=== PATIENT | male | born 1970 | race Caucasian/White ===

== ENCOUNTER 2022-12-09 19:19 | Emergency (ER) | payer SELFPAY ==
[2022-12-09 19:24] VITALS: BP 147/93; PULSE 97; RESP 18; TEMP 36.7; O2SAT 95; BMI 37.9
--- NOTE | 2022-12-09 19:51 | CT_ITS ---
The [address] [address] Patient Name: BRYNN WRIGHT MRN: [id number] date: 1970 Sex: M Assigned Patient Location: ER Current Patient Location: ER Accession/Order Number: [id number] Exam Date: 12/09/2022 20:06 Report Date: 12/09/2022 21:04 At the request of: HOLLIE HENNESSY Procedure: CT head/brain wo con EXAMINATION: CT head/brain wo con HISTORY: head injury - TECHNIQUE: CT head without contrast. All CT scans at this facility use dose modulation, iterative reconstruction, and/or weight based dosing when appropriate to reduce radiation dose to as low as reasonably achievable. COMPARISON: None. RESULT: HEAD: There is hyperintensity along the right tentorial leaflet in the course of the right transverse/sigmoid sinus which is also seen along the right posterior convexity and measuring up to 8.5 mm in thickness. No hydrocephalus, midline shift. Caldwell-white matter differentiation is preserved. Mastoids and middle ears are clear. Debris in the right external auditory canal likely cerumen. Mucosal thickening of the sphenoid and ethmoid sinuses. Imaged orbits are intact. Calvarium, skull base and osseous structures of the imaged face are intact. Scalp soft tissues are preserved. CT/CT head/brain wo con IMPRESSION: Hyperintensity along the right tentorial leaflet in the region of the transverse and sigmoid sinuses could reflect a subdural hematoma in the setting of trauma. Alternatively dural venous sinus thrombosis could have a similar appearance. Consider MRI/MRV for further evaluation. Dr. Steward discussed the above findings with Dr. Hennessy at 210 on 12/09/2022 by telephone. Electronically authenticated by: TACHO STEWARD Date: 12/09/2022 21:04
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
[2022-12-09 22:00] LABS: Basophils Absolute Auto 0.1 10^3/uL (0.0-0.1); Basophils Percent Auto 0.7 % (0.2-2.0); Eosinophils Absolute Auto 1.2 10^3/uL (0.0-0.7); Eosinophils Percent Auto 8.7 % (0.9-7.0); Hematocrit 44.3 % (42.0-54.0); Hemoglobin 14.8 g/dL (14.0-18.0); Immature Granulocytes Abs Auto 0.07 10^3/uL (0.00-0.03); Immature Granulocytes Pct Auto 0.5 % (0.0-0.5); Lymphocytes Absolute Auto 2.6 10^3/uL (1.2-3.8); Lymphocytes Percent Auto 18.9 % (20.5-60.0); Mean Corpuscular HGB Conc 33.4 g/dL (29.9-35.2); Mean Corpuscular Hemoglobin 28.2 pg (25.9-34.0); Mean Corpuscular Volume 84.4 fL (80.0-94.0); Mean Platelet Volume 10.3 fL (9.5-13.5); Monocytes Absolute Auto 1.1 10^3/uL (0.3-0.8); Monocytes Percent Auto 7.9 % (1.7-12.0); Neutrophils Absolute Auto 8.7 10^3/uL (1.4-6.5); Neutrophils Percent Auto 63.3 % (43.0-75.0); Platelet Count 238 10^3/uL (150-450); Red Blood Count 5.25 10^6/uL (4.70-6.10); Red Cell Distribution Width 14.2 % (11.0-15.0); White Blood Count 13.7 10^3/uL (4.0-11.0)
[2022-12-09] MEDS: FENTANYL CITRATE/PF 100 MCG/2 ML VIAL 50 MCG IV (22:07)
[2022-12-09 22:14] VITALS: BP 150/107; PULSE 101; O2SAT 92
[2022-12-09 22:20] LABS: Alanine Aminotransferase 32 U/L (16-63); Albumin Level 3.4 g/dL (3.4-5.0); Alkaline Phosphatase 72 U/L (46-116); Aspartate Amino Transferase 22 U/L (15-37); BUN Creatinine Ratio 23.8; Bilirubin Total 1.2 mg/dL (0.2-1.0); Calcium 8.7 mg/dL (8.5-10.1); Carbon Dioxide 27.8 mmol/L (21.0-32.0); Chloride 101 mmol/L (98-107); Estimated GFR (African America >60 (>=60); Estimated GFR (Non-African Ame >60 (>=60); Globulin 3.4 g/dL; Glucose 116 mg/dL (74-106); Potassium 3.8 mmol/L (3.5-5.1); Sodium 132 mmol/L (136-145); Total Protein 6.8 g/dL (6.4-8.2)
[2022-12-09 22:57] VITALS: BP 144/91; PULSE 99; RESP 20; O2SAT 94
== END 2022-12-09 23:35 | disposition short-term general hospital (02) ==
PROVIDERS: Emergency Provider Internal Medicine
DX: S06.5X9A Traumatic subdural hemorrhage with loss of consciousness of unspecified duration, initial encounter (principal); V23.49XA Other motorcycle driver injured in collision with car, pick-up truck or van in traffic accident, initial encounter; F17.210 Nicotine dependence, cigarettes, uncomplicated
CPT/HCPCS: 36415; 70450; 80053; 85025; 96374; 99285

== ENCOUNTER 2022-12-18 12:23 | Outpatient (OUT) | payer SELFPAY ==
--- NOTE | 2022-12-18 | XR_ITS ---
The [address] [address] Patient Name: BRYNN WRIGHT MRN: [id number] date: 1970 Sex: M Assigned Patient Location: [facility] Current Patient Location: [facility] Accession/Order Number: [id number] Exam Date: 12/18/2022 12:35 Report Date: 12/18/2022 18:24 At the request of: DEDRICK KHAN Procedure: XR shoulder LT min 2V EXAM: Left shoulder HISTORY: . Acute pain of the left shoulder . COMPARISON: None. TECHNIQUE: 3 views FINDINGS: No fracture or dislocation of the shoulder is noted. Glenohumeral joint is unremarkable. AC joint measures approximately 11 mm. No acute fracture is noted. Surrounding soft tissues are unremarkable. XR/XR shoulder LT min 2V IMPRESSION: 1 no acute bony abnormality of the left shoulder. 2. AC joint measures 11 mm. Findings could represent a normal variation or represent AC separation. Acute or old. Clinical correlation is suggested. Electronically authenticated by: ALE PABON Date: 12/18/2022 18:24
== END 2022-12-18 12:24 | disposition home or self-care (01) ==
LOC: RAD 12:24
PROVIDERS: Visit Provider Orthopaedic Surgery
DX: M25.512 Pain in left shoulder (principal)
CPT/HCPCS: 73030

== ENCOUNTER 2022-12-25 17:50 | Emergency (ER) | payer SELFPAY ==
[2022-12-25] VITALS (20 sets, daily range): BP systolic 123–168; BP diastolic 78–105; PULSE 89–109; RESP 20–28; TEMP 37.2; O2SAT 91–97; BMI 37.9
--- NOTE | 2022-12-25 18:05 | XR_ITS ---
The [address] [address] Patient Name: BRYNN WRIGHT MRN: [id number] date: 1970 Sex: M Assigned Patient Location: ER Current Patient Location: ED.MAIN Accession/Order Number: [id number] Exam Date: 12/25/2022 18:25 Report Date: 12/25/2022 18:52 At the request of: ODALYS BAIRD Procedure: XR chest 1V EXAM: XR chest 1V at 1820 hours HISTORY: SOB COMPARISON: 04/25/2020 TECHNIQUE: AP upright portable chest x-ray FINDINGS: The heart is not enlarged and the vasculature is not distended. Multiple sternal wire sutures and mediastinal clips are present. No acute infiltrate, effusion or pneumothorax is identified. The osseous structures are grossly intact. XR/XR chest 1V IMPRESSION: No acute infiltrate or evidence of cardiac decompensation. The overall appearance of the chest is essentially unchanged. Electronically authenticated by: MAURICIO CABAN Date: 12/25/2022 18:52
--- NOTE | 2022-12-25 18:05 | ECG_ITS ---
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
--- NOTE | 2022-12-25 18:06 | ED_ITS ---
HPI - SOB/Dyspnea General Chief Complaint: Shortness of Breath/Dyspnea Stated Complaint: SOB Time Seen by Provider: 12/25/22 18:01 Source: patient Mode of arrival: walk-in Limitations: no limitations History of Present Illness HPI Narrative: 52-year-old male presents for difficulty breathing. He has a history of chronic obstructive pulmonary disease and has not had a fever. He ran out of his Ventolin three days ago. He had been admitted on December 12 in a hospital in [place] and at that time was diagnosed with pneumonia. He was discharged home on an antibiotic which he has now finished. Related Data Allergies Allergy/AdvReac Type Severity Reaction Status Date / Time No Known Drug Allergies Allergy Verified 12/09/22 19:23 Review of Systems ROS Narrative A ten point review of systems is negative except as noted above. PFSH PFSH Social History Smoking status: Former smoker Exam Narrative Exam Narrative: Nurses note and vital signs reviewed and patient is not hypoxic. General: The patient appears dyspneic Skin: Warm, dry, no pallor noted. There is no rash noted. Head: Normocephalic, atraumatic Eye: Normal conjunctiva, no drainage Ears, Nose, Mouth, and Throat: oral mucosa is moist. Nares patent. Cardiovascular: Regular Rate and Rhythm Respiratory: bilateral rhonchi throughout Back: non-tender GI: soft and nontender Musculoskeletal: The patient has no evidence of calf tenderness, no pitting edema, symmetrical pulses noted bilaterally Neurological: A&O, normal speech Psychiatric: Cooperative Constitutional Vital Signs, click to edit/add: Last Vital Signs Temp 98.9 F 12/25/22 17:54 Pulse 91 H 12/25/22 17:54 Resp 28 H 12/25/22 17:54 BP 168/93 H 12/25/22 17:54 Pulse Ox 93 L 12/25/22 18:08 O2 Del Method Room Air 12/25/22 18:08 Course Vital Signs Vital signs: Vital Signs Temperature 98.9 F 12/25/22 17:54 Pulse Rate 91 H 12/25/22 17:54 Respiratory Rate 28 H 12/25/22 17:54 Blood Pressure 168/93 H 12/25/22 17:54 Pulse Oximetry 93 L 12/25/22 17:54 Temperature 98.9 F 12/25/22 17:54 Pulse Rate 91 H 12/25/22 17:54 Respiratory Rate 28 H 12/25/22 17:54 Blood Pressure 168/93 H 12/25/22 17:54 Pulse Oximetry 93 L 12/25/22 18:08 Oxygen Delivery Method Room Air 12/25/22 18:08 MDM - SOB/Dyspnea MDM Narrative Medical decision making narrative: tests including blood work and chest x-ray are ordered and the patient is signed out to Dr. Magallon at change of shift. Differential Diagnosis Differential diagnosis: Likely acute exacerbation of chronic obstructive airways disease and community acquired pneumonia Discharge Plan Discharge Chief Complaint: Shortness of Breath/Dyspnea Clinical Impression: Acute exacerbation of chronic obstructive pulmonary disease Patient Disposition: Still a Patient Referrals: Physician,Non-Staff, MD [Primary Care Provider] - 1 week
[2022-12-25] MEDS: ALBUTEROL SULFATE 2.5 MG/3 ML VIAL NEB IH ×2 (18:08→19:02)
[2022-12-25] MEDS: METHYLPREDNISOLONE SOD SUCC PF 125 MG/2 ML VIAL IVP (18:31)
[2022-12-25 19:06] LABS: Basophils Absolute Auto 0.1 10^3/uL (0.0-0.1); Basophils Percent Auto 0.9 % (0.2-2.0); Eosinophils Absolute Auto 1.7 10^3/uL (0.0-0.7); Eosinophils Percent Auto 11.4 % (0.9-7.0); Hemoglobin 15.2 g/dL (14.0-18.0); Immature Granulocytes Abs Auto 0.06 10^3/uL (0.00-0.03); Immature Granulocytes Pct Auto 0.4 % (0.0-0.5); Lymphocytes Absolute Auto 4.7 10^3/uL (1.2-3.8); Lymphocytes Percent Auto 30.8 % (20.5-60.0); Mean Corpuscular Hemoglobin 27.7 pg (25.9-34.0); Mean Corpuscular Volume 83.9 fL (80.0-94.0); Mean Platelet Volume 10.2 fL (9.5-13.5); Monocytes Percent Auto 6.6 % (1.7-12.0); Neutrophils Absolute Auto 7.6 10^3/uL (1.4-6.5); Neutrophils Percent Auto 49.9 % (43.0-75.0); Platelet Count 354 10^3/uL (150-450); Red Blood Count 5.48 10^6/uL (4.70-6.10); Red Cell Distribution Width 14.1 % (11.0-15.0); White Blood Count 15.3 10^3/uL (4.0-11.0)
[2022-12-25 19:10] LABS: Anion Gap 10.6; BUN Creatinine Ratio 22.3; Calcium 9.1 mg/dL (8.5-10.1); Carbon Dioxide 28.3 mmol/L (21.0-32.0); Chloride 104 mmol/L (98-107); Estimated GFR (African America >60 (>=60); Estimated GFR (Non-African Ame 58 (>=60); Glucose 104 mg/dL (74-106); Potassium 3.9 mmol/L (3.5-5.1); Sodium 139 mmol/L (136-145)
== END 2022-12-25 21:02 | disposition home or self-care (01) ==
PROVIDERS: Emergency Provider Emergency Medicine
DX: J44.1 Chronic obstructive pulmonary disease with (acute) exacerbation (principal); R06.00 Dyspnea, unspecified; Z87.01 Personal history of pneumonia (recurrent); Z87.891 Personal history of nicotine dependence
CPT/HCPCS: 36415; 71045; 80048; 85025; 87070; 87205; 93005; 94640; 96374; 99285; J2930

== ENCOUNTER 2023-01-01 12:21 | Outpatient (OUT) | payer SELFPAY ==
--- NOTE | 2023-01-01 12:26 | MR_ITS ---
The [address] [address] Patient Name: BRYNN WRIGHT MRN: [id number] date: 1970 Sex: M Assigned Patient Location: MRI Current Patient Location: MRI Accession/Order Number: [id number] Exam Date: 01/01/2023 12:45 Report Date: 01/01/2023 14:58 At the request of: DEDRICK KHAN Procedure: MR shoulder LT wo con MR shoulder LT wo con, 01/01/2023 12:45 PM EST INDICATION: Acute Pain Of Left Shoulder M25.512 COMPARISON: Prior x-ray of the left shoulder dated 12/18/2022 TECHNIQUE: Multiplanar and multisequential MR images of the left shoulder were obtained without contrast. FINDINGS: There is T2 prolongation within the acromioclavicular ligaments and coracoclavicular ligament most likely due to high-grade partial tear causing separation of the AC joint with mild elevation of the clavicle. No definite abnormality of the coracoacromial ligament is noted. There is no os acromiale. No Hill-Sachs is noted. No acute fracture or dislocation is noted. The quadrilateral space and supraspinous notch are unremarkable. The T2 prolongation within the insertional portions of supraspinatus and infraspinatus may suggest tendinosis. The intra-articular portion of long head of biceps is not be well-visualized likely due to high-grade partial tear. The teres minor and subscapularis are unremarkable. No fatty muscle atrophy is noted. The labrum and left glenohumeral joint show moderate degenerative changes. Postoperative changes within the glenoid are noted. There is trace intra articular joint effusion. MR/MR shoulder LT wo con IMPRESSION: High-grade partial tear of the acromioclavicular and coracoclavicular ligaments. No definite tear of the coracoacromial ligament. Separation of the AC joint. Moderate degenerative changes of the left glenohumeral joint. Insertional tendinosis of supraspinatus and infraspinatus. Poor visualization of the intra-articular portion of the long head of biceps likely due to high-grade partial tear. Electronically authenticated by: MARCIAL DUNNE Date: 01/01/2023 14:58
== END 2023-01-01 12:22 | disposition home or self-care (01) ==
PROVIDERS: Visit Provider Orthopaedic Surgery
DX: M25.512 Pain in left shoulder (principal); S43.52XA Sprain of left acromioclavicular joint, initial encounter; S43.102A Unspecified dislocation of left acromioclavicular joint, initial encounter
CPT/HCPCS: 73221

== ENCOUNTER 2023-01-09 19:17 | Inpatient (IN) | payer SELFPAY ==
[2023-01-09] VITALS (19 sets, daily range): BP systolic 130–160; BP diastolic 84–108; PULSE 94–118; RESP 13–37; TEMP 36.4; O2SAT 88–96; BMI 38.3
--- NOTE | 2023-01-09 19:30 | XR_ITS ---
The [address] [address] Patient Name: BRYNN WRIGHT MRN: [id number] date: 1970 Sex: M Assigned Patient Location: ER Current Patient Location: ER Accession/Order Number: [id number] Exam Date: 01/09/2023 19:45 Report Date: 01/09/2023 20:09 At the request of: HOLLIE ARELLANO Procedure: XR chest 1V EXAMINATION: XR chest 1V HISTORY: Shortness of breath COMPARISON: Chest x-ray 12/25/2022 TECHNIQUE: Portable chest FINDINGS: The lung parenchyma is free of consolidation or infiltrate. No pneumothorax or pleural effusion. Status post median sternotomy. The cardiac, mediastinal and hilar contours are normal. The visualized osseous structures exhibit no gross abnormality. XR/XR chest 1V IMPRESSION: No acute cardiopulmonary abnormality. Electronically authenticated by: ALE MURPHY Date: 01/09/2023 20:09
--- NOTE | 2023-01-09 19:30 | ECG_ITS ---
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
--- NOTE | 2023-01-09 19:34 | ED_ITS ---
HPI - SOB/Dyspnea General Chief Complaint: Shortness of Breath/Dyspnea Stated Complaint: SOB Time Seen by Provider: 01/09/23 19:30 Source: patient Mode of arrival: Wheelchair Limitations: no limitations History of Present Illness HPI Narrative: history of COPD. Seen here 12/25/22 for exacerbation. Recently stop smoking. History of CAD s/p one vessel CABG 5 years ago. Shortness of breath over the past 3-4 days. Worse today. states ran out of his inhaler. No chest pain but does have clicking sound at his zipper on his chest. No chest or abdominal pain or nausea MD elicited complaint: shortness of breath Pertinent past history: COPD Related Data Home Medications Medication Instructions Recorded Confirmed No Known Home Medications 01/09/23 01/09/23 Allergies Allergy/AdvReac Type Severity Reaction Status Date / Time No Known Drug Allergies Allergy Verified 01/09/23 19:30 Review of Systems ROS Status of ROS 10 or more systems reviewed and unremarkable except as noted in history and below PFSH PFSH Social History Smoking status: Former smoker Exam Constitutional Vital Signs, click to edit/add: Last Vital Signs Pulse 112 H 01/09/23 19:23 Resp 32 H 01/09/23 19:23 BP 137/106 H 01/09/23 19:23 Pulse Ox 92 L 01/09/23 19:35 O2 Del Method Nasal Cannula 01/09/23 19:35 O2 Flow Rate 2 01/09/23 19:35 Common normals: average body habitus, oriented x3, healthy appearing, alert and well nourished General appearance: in distress (moderate respiratory distress) HENNC Common normals: normocephalic and head/scalp atraumatic Eye Common normals: EOMs intact bilaterally and conjunctivae normal Respiratory Effort & inspection: audible wheezes Other: tight chest Cardio Rate: tachycardic GI Common normals: Normal to inspection, nondistended, normoactive bowel sounds present, soft to palpation and non-tender Extremity Common normals: normal to inspection and full ROM Neuro Common normals: oriented x3, CN's II-XII intact bilaterally, moves all extremities, no focal motor deficits and no sensory deficits noted Psych Appearance: grossly normal Course Vital Signs Vital signs: Vital Signs Pulse Rate 112 H 01/09/23 19:23 Respiratory Rate 32 H 01/09/23 19:23 Blood Pressure 137/106 H 01/09/23 19:23 Pulse Oximetry 88 L 01/09/23 19:23 Oxygen Delivery Method Room Air 01/09/23 19:23 Pulse Rate 112 H 01/09/23 19:23 Respiratory Rate 32 H 01/09/23 19:23 Blood Pressure 137/106 H 01/09/23 19:23 Pulse Oximetry 92 L 01/09/23 19:35 Oxygen Delivery Method Nasal Cannula 01/09/23 19:35 Oxygen Delivery Flow Rate 2 01/09/23 19:35 MDM - SOB/Dyspnea MDM Narrative Medical decision making narrative: patient has history of COPD. presents with worsening shortness of breath over past few days. much worse today and in moderate distress with 2-3 work communication. Chest with tight wheeze. No chest pain. cxray clear. d-dimer and troponin neg. EKG with old anterior wall scar. Poor R wave progression precordial leads. Low voltage. Patient treated with solumedrol and duo neb x 2. No longer in distress. Rechecked and now has diffuse end expiratory wheeze and mild to mod air movement. Admits he feels like he is still struggling to breath e. Discussed with the hospitalist and will plan obs admission Lab Data Labs: Lab Results 01/09/23 01/09/23 Range/Units 19:30 19:58 WBC 15.8 H (4.0-11.0) 10^3/uL RBC 5.83 (4.70-6.10) 10^6/uL Hgb 16.3 (14.0-18.0) g/dL Hct 49.1 (42.0-54.0) % MCV 84.2 (80.0-94.0) fL MCH 28.0 (25.9-34.0) pg MCHC 33.2 (29.9-35.2) g/dL RDW 14.6 (11.0-15.0) % Plt Count 292 (150-450) 10^3/uL MPV 9.5 (9.5-13.5) fL Neut % (Auto) 53.8 (43.0-75.0) % Lymph % (Auto) 28.5 (20.5-60.0) % [place] % (Auto) 7.0 (1.7-12.0) % Eos % (Auto) 9.2 H (0.9-7.0) % Baso % (Auto) 0.9 (0.2-2.0) % Neut # (Auto) 8.5 H (1.4-6.5) 10^3/uL Lymph # (Auto) 4.5 H (1.2-3.8) 10^3/uL [place] # (Auto) 1.1 H (0.3-0.8) 10^3/uL Eos # (Auto) 1.5 H (0.0-0.7) 10^3/uL Baso # (Auto) 0.2 H (0.0-0.1) 10^3/uL Abs Immat Gran (auto) 0.10 H (0.00-0.03) 10^3/uL Imm/Tot Granulo (auto) 0.6 H (0.0-0.5) % D-Dimer 0.22 (<=0.59) mg/L FEU Sodium 139 (136-145) mmol/L Potassium 4.9 (3.5-5.1) mmol/L Chloride 102 (98-107) mmol/L Carbon Dioxide 28.2 (21.0-32.0) mmol/L Anion Gap 13.7 BUN 21.0 H (7.0-18.0) mg/dL Creatinine 1.15 (0.70-1.30) mg/dL Est GFR ( Amer) >60 (>=60) Est GFR (Non-Af Amer) >60 (>=60) BUN/Creatinine Ratio 18.3 Glucose 117 H (74-106) mg/dL Calcium 9.5 (8.5-10.1) mg/dL Troponin I High Sens 20.5 (4.0-76.1) pg/mL NT-Pro-B Natriuret Pep 77.0 (<=900.0) pg/mL Discharge Plan Discharge Chief Complaint: Shortness of Breath/Dyspnea Clinical Impression: Acute exacerbation of chronic obstructive pulmonary disease Prescriptions / Home Meds: No Action No Known Home Medications Referrals: Physician,Non-Staff, MD [Primary Care Provider] - 1 week
[2023-01-09 19:44] LABS: Basophils Absolute Auto 0.2 10^3/uL (0.0-0.1); Basophils Percent Auto 0.9 % (0.2-2.0); Eosinophils Absolute Auto 1.5 10^3/uL (0.0-0.7); Eosinophils Percent Auto 9.2 % (0.9-7.0); Hematocrit 49.1 % (42.0-54.0); Hemoglobin 16.3 g/dL (14.0-18.0); Immature Granulocytes Pct Auto 0.6 % (0.0-0.5); Lymphocytes Absolute Auto 4.5 10^3/uL (1.2-3.8); Lymphocytes Percent Auto 28.5 % (20.5-60.0); Mean Corpuscular HGB Conc 33.2 g/dL (29.9-35.2); Mean Corpuscular Volume 84.2 fL (80.0-94.0); Mean Platelet Volume 9.5 fL (9.5-13.5); Monocytes Absolute Auto 1.1 10^3/uL (0.3-0.8); Neutrophils Absolute Auto 8.5 10^3/uL (1.4-6.5); Neutrophils Percent Auto 53.8 % (43.0-75.0); Platelet Count 292 10^3/uL (150-450); Red Blood Count 5.83 10^6/uL (4.70-6.10); Red Cell Distribution Width 14.6 % (11.0-15.0); White Blood Count 15.8 10^3/uL (4.0-11.0)
--- NOTE | 2023-01-09 19:49 | PC.NURSE ---
Pt presents to ER for shortness of breath Pt is seated in wheelchair in waiting room in obvious respiratory distress Pt is tripoding, nasal flaring, retractions, grunting with expiration and only able to speak in short word sentences Pt's spouse states that pt was recently here for a similar episode and ran out of nebulizers at home, was not able to be seen by his PCP or respiratory doctor and began getting symptoms again a few days ago Pt's spouse states this episode started earlier today and dropped the pt to his knee's at onset On arrival pt is 88% on room air, placed on 2liters nasal cannula and now at 92% Line, Labs, EKG, established and obtained Pt is seated at the side of the bed in a tripod position as this is the most comfortable way for him Pt is not taking any prescription medications at this time Pt's lungs sound tight throughout, inspiratory and expiratory wheezes throughout, grunting present in bilateral upper lobes, diminsed in the left lower Pt has a history of COPD and had a cardiac bypass 5 years ago Pt states there is a clicking in his chest, this can be palpated by this nurse Pt states at this site he experiences pain with inspiration This was relayed to Dr. Hennessy
[2023-01-09] MEDS: 0.9 % SODIUM CHLORIDE 1,000 ML 100 ML IV (19:59)
[2023-01-09] MEDS: METHYLPREDNISOLONE SOD SUCC PF 125 MG/2 ML VIAL IVP (20:00)
[2023-01-09] MEDS: IPRATROPIUM/ALBUTEROL SULFATE 3 ML AMPUL.NEB IH ×2 (20:00→20:05)
[2023-01-09 20:06] LABS: Anion Gap 13.7; BUN Creatinine Ratio 18.3; Calcium 9.5 mg/dL (8.5-10.1); Carbon Dioxide 28.2 mmol/L (21.0-32.0); Chloride 102 mmol/L (98-107); Estimated GFR (African America >60 (>=60); Estimated GFR (Non-African Ame >60 (>=60); Glucose 117 mg/dL (74-106); Potassium 4.9 mmol/L (3.5-5.1); Sodium 139 mmol/L (136-145); Troponin I High Sensitivity 20.5 pg/mL (4.0-76.1)
[2023-01-09 20:17] LABS: D Dimer 0.22 mg/L FEU (<=0.59)
[2023-01-10] VITALS (15 sets, daily range): BP systolic 122–162; BP diastolic 76–88; PULSE 18–133; RESP 18–24; TEMP 36.7–37; O2SAT 90–95
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
[2023-01-10] MEDS: LIDOCAINE 5% PATCH 1 PATCH TOPICAL (01:47)
[2023-01-10] MEDS: FLUTICASONE PROPIONATE 50 MCG NASAL SPRAY 1 SPRAY NS ×2 (01:47→08:56)
[2023-01-10] MEDS: ROPINIROLE HCL 1 MG TABLET 2 MG PO ×2 (01:48→08:47)
[2023-01-10] MEDS: TRAMADOL HCL 50 MG TABLET PO ×2 (01:49→08:46)
[2023-01-10] MEDS: GUAIFENESIN 600 MG TAB.ER.12H PO ×2 (01:49→11:21)
[2023-01-10] MEDS: METHYLPREDNISOLONE SOD SUCC PF 40 MG/ML VIAL IVP ×3 (01:49→16:38)
[2023-01-10] MEDS: IPRATROPIUM/ALBUTEROL SULFATE 3 ML AMPUL.NEB IH ×5 (07:55→22:35)
--- NOTE | 2023-01-10 07:57 | RESP.RT ---
increased to 2L
[2023-01-10] MEDS: ENOXAPARIN SODIUM 40 MG/0.4 ML SYRINGE SUBQ (08:46)
[2023-01-10] MEDS: DOXYCYCLINE MONOHYDRATE 100 MG CAPSULE PO ×2 (08:46→21:18)
[2023-01-10] MEDS: BUDESONIDE 0.5 MG/2 ML AMPULE NEB IH ×2 (10:13→22:35)
--- NOTE | 2023-01-10 10:56 | CM.NOTE ---
Rounding with Dr. reynoso. Pt. currently on oxygen and does not wear oxygen at home. Discussed adding additional medications and breathing treatments. Pt. does voice he does not currently have insurance. Financial services will be notified.
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
--- NOTE | 2023-01-10 14:53 | CM.NOTE ---
Unique ORTHODONTIC LABORATORY TECHNICIAN called and pt concerned with cost of Albuterol with not having insurance. Pt given Good Rx card and 4&10 dollar [facility] medication list. Albuterol on both lists for discounted pricing. Pt verbalizes understanding.
--- NOTE | 2023-01-10 15:23 | RESP.RT ---
titrated down to room air
[2023-01-10] MEDS: LORAZEPAM 1 MG TABLET PO ×2 (21:22→21:23)
[2023-01-11] VITALS (8 sets, daily range): BP systolic 129–143; BP diastolic 67–80; PULSE 109–117; RESP 18–20; TEMP 36.3–36.6; O2SAT 90–95
[2023-01-11] MEDS: METHYLPREDNISOLONE SOD SUCC PF 40 MG/ML VIAL IVP ×4 (00:58→20:28)
[2023-01-11] MEDS: GUAIFENESIN 600 MG TAB.ER.12H PO ×2 (00:58→11:42)
[2023-01-11] MEDS: LIDOCAINE 5% PATCH 1 PATCH TOPICAL (00:58)
[2023-01-11] MEDS: IPRATROPIUM/ALBUTEROL SULFATE 3 ML AMPUL.NEB IH ×4 (03:58→19:58)
[2023-01-11 05:26] LABS: Basophils Percent Auto 0.1 % (0.2-2.0); Hematocrit 44.7 % (42.0-54.0); Hemoglobin 14.6 g/dL (14.0-18.0); Immature Granulocytes Abs Auto 0.25 10^3/uL (0.00-0.03); Immature Granulocytes Pct Auto 1.2 % (0.0-0.5); Lymphocytes Absolute Auto 1.7 10^3/uL (1.2-3.8); Lymphocytes Percent Auto 7.8 % (20.5-60.0); Mean Corpuscular HGB Conc 32.7 g/dL (29.9-35.2); Mean Corpuscular Hemoglobin 27.5 pg (25.9-34.0); Mean Corpuscular Volume 84.3 fL (80.0-94.0); Monocytes Absolute Auto 0.9 10^3/uL (0.3-0.8); Monocytes Percent Auto 4.4 % (1.7-12.0); Neutrophils Absolute Auto 18.7 10^3/uL (1.4-6.5); Neutrophils Percent Auto 86.5 % (43.0-75.0); Platelet Count 288 10^3/uL (150-450); Red Cell Distribution Width 14.7 % (11.0-15.0); White Blood Count 21.5 10^3/uL (4.0-11.0)
[2023-01-11 05:34] LABS: Anion Gap 15.4; BUN Creatinine Ratio 20.2; Calcium 8.5 mg/dL (8.5-10.1); Carbon Dioxide 24.8 mmol/L (21.0-32.0); Chloride 101 mmol/L (98-107); Estimated GFR (African America >60 (>=60); Estimated GFR (Non-African Ame >60 (>=60); Glucose 177 mg/dL (74-106); Potassium 4.2 mmol/L (3.5-5.1); Sodium 137 mmol/L (136-145)
[2023-01-11] MEDS: TRAMADOL HCL 50 MG TABLET PO (08:49)
[2023-01-11] MEDS: DOXYCYCLINE MONOHYDRATE 100 MG CAPSULE PO ×2 (08:49→20:27)
[2023-01-11] MEDS: ROPINIROLE HCL 1 MG TABLET 2 MG PO (08:49)
[2023-01-11] MEDS: ENOXAPARIN SODIUM 40 MG/0.4 ML SYRINGE SUBQ (08:49)
[2023-01-11] MEDS: FLUTICASONE PROPIONATE 50 MCG NASAL SPRAY 1 SPRAY NS (08:50)
[2023-01-11 09:32] LABS: Adenovirus NOT DETECTED (NOT DETECTE); Bordetella parapertussis NOT DETECTED (NOT DETECTE); Coronavirus 229E NOT DETECTED (NOT DETECTE); Coronavirus HKU1 NOT DETECTED (NOT DETECTE); Coronavirus NL63 NOT DETECTED (NOT DETECTE); Coronavirus OC43 NOT DETECTED (NOT DETECTE); Human Metapneumovirus NOT DETECTED (NOT DETECTE); Human Rhinovirus/Enterovirus NOT DETECTED (NOT DETECTE); Influenza A NOT DETECTED (NOT DETECTE); Influenza B NOT DETECTED (NOT DETECTE); Mycoplasma pneumoniae NOT DETECTED (NOT DETECTE); Parainfluenza Virus 1 NOT DETECTED (NOT DETECTE); Parainfluenza Virus 2 NOT DETECTED (NOT DETECTE); Parainfluenza Virus 3 NOT DETECTED (NOT DETECTE); Parainfluenza Virus 4 NOT DETECTED (NOT DETECTE); Respiratory Syncytial Virus NOT DETECTED (NOT DETECTE); SARS-CoV-2 NOT DETECTED (NOT DETECTE)
[2023-01-11 10:06] LABS: D Dimer <0.19 mg/L FEU (<=0.59)
[2023-01-11] MEDS: BUDESONIDE 0.5 MG/2 ML AMPULE NEB IH (10:14)
--- NOTE | 2023-01-11 12:04 | CM.NOTE ---
Rounds made with Dr. Oseguera, attempting to wean off oxygen. No discharge today.
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
[2023-01-11 18:02] LABS: Glucometer 183 mg/dL (74-106)
[2023-01-11] MEDS: LORAZEPAM 1 MG TABLET PO (18:08)
--- NOTE | 2023-01-11 18:17 | PC.NURSE ---
Pt. called out stating he was having a respiratory attack and we should know. Structures Engineer stated that we would be in shortly. Structures Engineer went in room and pt was in the tripod position, face flushed, and head in a downward position and breathing was tachypneic thus not adequately providing adequate perfusion of gas exchange. Structures Engineer assessed lung sounds, did vitals and did pursed lip breathing. Structures Engineer called respiratory for additional support and assessment. Structures Engineer then returned pt into bed in a High Kincaid position with a neck roll and cool wash clothes on forehead and back of neck. Pt returned to baseline of breathing that was even and conrolled at 20 bpm. Pt denied any further needs and was told to call if needing further assistance.
[2023-01-11] MEDS: HYDROXYZINE HCL 25 MG TABLET PO (21:52)
[2023-01-11] MEDS: BENZONATATE 100 MG CAPSULE PO (21:56)
[2023-01-12] VITALS (8 sets, daily range): BP systolic 140–164; BP diastolic 77–95; PULSE 103–107; RESP 18–22; TEMP 36.3–36.7; O2SAT 93–95
[2023-01-12] MEDS: GUAIFENESIN 600 MG TAB.ER.12H PO ×2 (01:58→14:06)
[2023-01-12] MEDS: LIDOCAINE 5% PATCH 1 PATCH TOPICAL (01:58)
[2023-01-12] MEDS: METHYLPREDNISOLONE SOD SUCC PF 40 MG/ML VIAL IVP ×4 (02:04→21:21)
[2023-01-12] MEDS: IPRATROPIUM/ALBUTEROL SULFATE 3 ML AMPUL.NEB IH ×2 (03:58→14:46)
[2023-01-12 04:39] LABS: Basophils Percent Auto 0.1 % (0.2-2.0); Hematocrit 44.4 % (42.0-54.0); Hemoglobin 14.4 g/dL (14.0-18.0); Immature Granulocytes Abs Auto 0.19 10^3/uL (0.00-0.03); Immature Granulocytes Pct Auto 0.9 % (0.0-0.5); Lymphocytes Absolute Auto 1.3 10^3/uL (1.2-3.8); Lymphocytes Percent Auto 6.6 % (20.5-60.0); Mean Corpuscular HGB Conc 32.4 g/dL (29.9-35.2); Mean Corpuscular Hemoglobin 27.3 pg (25.9-34.0); Mean Corpuscular Volume 84.3 fL (80.0-94.0); Mean Platelet Volume 10.2 fL (9.5-13.5); Monocytes Absolute Auto 0.9 10^3/uL (0.3-0.8); Monocytes Percent Auto 4.3 % (1.7-12.0); Neutrophils Absolute Auto 17.9 10^3/uL (1.4-6.5); Neutrophils Percent Auto 88.1 % (43.0-75.0); Platelet Count 291 10^3/uL (150-450); Red Blood Count 5.27 10^6/uL (4.70-6.10); Red Cell Distribution Width 14.6 % (11.0-15.0); White Blood Count 20.4 10^3/uL (4.0-11.0)
[2023-01-12 05:14] LABS: Anion Gap 12.3; BUN Creatinine Ratio 22.1; Calcium 8.7 mg/dL (8.5-10.1); Carbon Dioxide 25.9 mmol/L (21.0-32.0); Chloride 101 mmol/L (98-107); Estimated GFR (African America >60 (>=60); Estimated GFR (Non-African Ame >60 (>=60); Glucose 219 mg/dL (74-106); Potassium 4.2 mmol/L (3.5-5.1); Sodium 135 mmol/L (136-145)
[2023-01-12] MEDS: ROPINIROLE HCL 1 MG TABLET 2 MG PO (08:42)
[2023-01-12] MEDS: BENZONATATE 100 MG CAPSULE PO ×2 (08:42→17:58)
[2023-01-12] MEDS: DOXYCYCLINE MONOHYDRATE 100 MG CAPSULE PO ×2 (08:42→21:21)
[2023-01-12] MEDS: LORAZEPAM 1 MG TABLET PO (08:42)
[2023-01-12] MEDS: ENOXAPARIN SODIUM 40 MG/0.4 ML SYRINGE SUBQ (08:42)
[2023-01-12] MEDS: FLUTICASONE PROPIONATE 50 MCG NASAL SPRAY 1 SPRAY NS (08:43)
--- NOTE | 2023-01-12 10:30 | CM.NOTE ---
Rounding with Dr. Oseguera. Discussed breathing issues throughout the night. Oxygen currently at 1 liter. Discussed slight improvement in lung sounds. Possible discharge Sunday.
[2023-01-12] MEDS: ACETAMINOPHEN 325 MG TABLET 650 MG PO ×2 (10:50→17:58)
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
[2023-01-12] MEDS: LIDOCAINE 5% PATCH 3 PATCH TOPICAL (15:51)
[2023-01-12] MEDS: DIAZEPAM 5 MG/ML - 2 ML INJ SYRINGE IV ×2 (15:51→22:00)
--- NOTE | 2023-01-12 19:02 | RESP.RT ---
Pt refused HHN at this time. Pt stated he does not need one right now.
--- NOTE | 2023-01-12 21:45 | PC.NURSE ---
Had a discussion with Pt about anxiety. Discussed PRN medications and what he thought the best course of action would be and what has been helping. Patient denies effectiveness of Tylenol and Ativan. Agreed to try veresed and see if he sleeps
[2023-01-13] MEDS: GUAIFENESIN 600 MG TAB.ER.12H PO (02:53)
[2023-01-13] MEDS: METHYLPREDNISOLONE SOD SUCC PF 40 MG/ML VIAL IVP (02:53)
[2023-01-13] MEDS: ACETAMINOPHEN 325 MG TABLET 650 MG PO (02:59)
[2023-01-13 03:40] VITALS: O2SAT 94
[2023-01-13 05:31] LABS: Basophils Percent Auto 0.1 % (0.2-2.0); Hemoglobin 15.5 g/dL (14.0-18.0); Immature Granulocytes Abs Auto 0.17 10^3/uL (0.00-0.03); Immature Granulocytes Pct Auto 0.9 % (0.0-0.5); Lymphocytes Absolute Auto 1.4 10^3/uL (1.2-3.8); Lymphocytes Percent Auto 7.4 % (20.5-60.0); Mean Corpuscular Hemoglobin 27.5 pg (25.9-34.0); Mean Corpuscular Volume 83.5 fL (80.0-94.0); Mean Platelet Volume 10.1 fL (9.5-13.5); Monocytes Percent Auto 5.5 % (1.7-12.0); Neutrophils Absolute Auto 15.6 10^3/uL (1.4-6.5); Neutrophils Percent Auto 86.1 % (43.0-75.0); Platelet Count 268 10^3/uL (150-450); Red Blood Count 5.63 10^6/uL (4.70-6.10); Red Cell Distribution Width 14.3 % (11.0-15.0); White Blood Count 18.2 10^3/uL (4.0-11.0)
[2023-01-13 05:40] LABS: Anion Gap 13.3; BUN Creatinine Ratio 26.2; Calcium 8.5 mg/dL (8.5-10.1); Carbon Dioxide 25.9 mmol/L (21.0-32.0); Chloride 100 mmol/L (98-107); Estimated GFR (African America >60 (>=60); Estimated GFR (Non-African Ame >60 (>=60); Glucose 255 mg/dL (74-106); Potassium 4.2 mmol/L (3.5-5.1); Sodium 135 mmol/L (136-145)
[2023-01-13 06:00] VITALS: BP 154/97; PULSE 77; RESP 18; TEMP 36.3; O2SAT 92
--- NOTE | 2023-01-13 06:16 | XR_ITS ---
The [address] [address] Patient Name: BRYNN WRIGHT MRN: [id number] date: 1970 Sex: M Assigned Patient Location: [place] Current Patient Location: [place] Accession/Order Number: [id number] Exam Date: 01/13/2023 06:30 Report Date: 01/13/2023 06:53 At the request of: SHAIKH KVNG Procedure: XR chest 1V EXAMINATION: XR chest 1V HISTORY: sob COMPARISON: XR chest 01/09/2023 FINDINGS: LUNGS: Slight haziness within lateral right lung base partially obscuring the bronchovascular structures. VASCULATURE: No increased pulmonary vasculature. PLEURA: No pneumothorax, effusion, or pleural thickening. CARDIAC: No cardiomegaly or cardiac silhouette abnormality. MEDIASTINUM: No visible mass or adenopathy. BONES: No fracture or visible bone lesion. OTHER: Prior sternotomy. XR/XR chest 1V IMPRESSION: 1. Trace amount of right basilar atelectasis or infiltrates. Electronically authenticated by: DEDRICK MARTINEZ Date: 01/13/2023 06:53
[2023-01-13 08:00] VITALS: RESP 18
[2023-01-13] MEDS: ROPINIROLE HCL 1 MG TABLET 2 MG PO (08:24)
[2023-01-13] MEDS: DOXYCYCLINE MONOHYDRATE 100 MG CAPSULE PO (08:24)
[2023-01-13] MEDS: ENOXAPARIN SODIUM 40 MG/0.4 ML SYRINGE SUBQ (08:24)
[2023-01-13] MEDS: LORAZEPAM 1 MG TABLET PO (08:27)
[2023-01-13] MEDS: FLUTICASONE PROPIONATE 50 MCG NASAL SPRAY 1 SPRAY NS (08:27)
--- NOTE | 2023-01-13 23:47 | P.DS_ITS ---
DS: Providers Provider Date of admission: 01/11/23 12:45 Primary care physician: Non-Staff Physician, Attending physician on discharge: Shaikh Taran Anticipated date of discharge: 01/13/23 DS: Diagnosis Discharge Diagnosis (1) Acute exacerbation of chronic obstructive pulmonary disease: Assessment and plan: Resolved. On RA, comfortable. Patient discharged on PO prednisone, azithromycin, ventolin as needed. He does not have insurance and unable to afford maintenance inhalers. Patient is in the process of applying for Medicaid and will f/u with PCP for it. He was previously on Trelegy. (2) Acute hypoxic respiratory failure: Assessment and plan: Due to COPD exacerbation. On RA today. Stable for d/c (3) Restless leg syndrome: Assessment and plan: C/w requip DS: Summary Hospital Course Hospital Course: Patient admitted for COPD exacerbation, acute resp failure with hypoxia after failing outpatient treatment for it. He was treated with systemic steroids, inhaled duonebs with slow, progressive improvement in his symptoms and on day of discharge, he was comfortable on RA and felt better/well enough to go home. Discharged on PO prednisone, Azithromycin. Patient educated on worrisome signs and symptoms and instructed to seek care if experiences worsening SOB, wheezing. Status at Discharge Functional status at discharge: independent ambulation Overall status at discharge: patient is back to baseline Time Spent with Patient Time attestation: Total time spent providing and/or coordinating discharge services: Time spent: greater than 30 minutes Exam Constitutional Vital Signs, click to edit/add: Last Vital Signs Temp 97.3 F L 01/13/23 06:00 Pulse 77 01/13/23 06:00 Resp 18 01/13/23 08:00 BP 154/97 H 01/13/23 06:00 Pulse Ox 92 L 01/13/23 06:00 O2 Del Method Room Air 01/13/23 06:00 O2 Flow Rate 1 01/12/23 14:48 Documenting provider has reviewed patient's vital signs: yes Common normals: no apparent distress General appearance: comfortable Nutritional appearance: obese Respiratory Common normals: normal respiratory effort and no use of accessory muscles Effort & inspection: able to speak in complete sentences Auscultation: wheezes Cardio Common normals: regular rate, regular rhythm, S1 normal heart sound and S2 normal heart sound DS: Data Data Completed and Pending Labs on day of discharge: Labs from last 24 hours 01/13/23 04:53 WBC 18.2 H RBC 5.63 Hgb 15.5 Hct 47.0 MCV 83.5 MCH 27.5 MCHC 33.0 RDW 14.3 Plt Count 268 MPV 10.1 Neut % (Auto) 86.1 H Lymph % (Auto) 7.4 L Parmer % (Auto) 5.5 Eos % (Auto) 0.0 L Baso % (Auto) 0.1 L Neut # (Auto) 15.6 H Lymph # (Auto) 1.4 Parmer # (Auto) 1.0 H Eos # (Auto) 0.0 Baso # (Auto) 0.0 Abs Immat Gran (auto) 0.17 H Imm/Tot Granulo (auto) 0.9 H Sodium 135 L Potassium 4.2 Chloride 100 Carbon Dioxide 25.9 Anion Gap 13.3 BUN 28.0 H Creatinine 1.07 Est GFR ( Amer) >60 Est GFR (Non-Af Amer) >60 BUN/Creatinine Ratio 26.2 Glucose 255 H Calcium 8.5 Discharge Plan Discharge Disposition: Home, Self-Care Discharge Medications: New prednisone 20 mg tablet 20 mg PO BID 5 Days Qty: 10 0RF albuterol sulfate [Ventolin HFA] 90 mcg/actuation HFA aerosol inhaler 2 inh inhalation Q6H PRN (Reason: shortness of breath or wheezing) Qty: 6.7 0RF azithromycin 250 mg tablet 250 mg PO DAILY 3 Days Qty: 3 0RF Continued trazodone 100 mg tablet 100 mg PO .PRN PRN (Reason: sleep) ropinirole 2 mg tablet 2 mg PO DAILY Activity: increase activity as tolerated Diet: advance to your usual diet Patient Instructions: Albuterol (By mouth) (Proventil, VoSpire, VoSpire ER), Prednisone (By mouth), Azithromycin (By mouth), COPD (Chronic Obstructive Pulmonary Disease) (GEN) Forms: Portal Instructions Follow Up Appointments: f/u with PCP in one week . Due to it being Sunday no appointment was able to be made. Discharge Date/Time: 01/13/23 12:55
--- NOTE | 2023-01-15 11:38 | CM.DCFOLLOWU ---
Person spoke with: patient How are you feeling? pretty good How is your pain? not too bad. I am sitting in Dr. Lamar's office right now to see him for my shoulder. Did you understand your discharge instructions? yes Do you have any questions about your discharge instructions? no Were you given any prescriptions at discharge? yes Were you able to get your prescriptions filled? yes from [facility] without any issues Do you understand how to take your medications as ordered? yes Do you have any questions about your follow up appointment and do you plan to keep your follow up appointment? I have not made the appointment yet. I highly encouraged patient to make this follow up appointment. Pt. States he sees a provider in [facility] and he thinks his name is spelled Dr. Jay. Patient voiced he will make this appointment today and understands the importance of doing so. Is there anything else that you would like to discuss? no Questions/Comments/Concerns/Other: n/a
== END 2023-01-13 12:55 | disposition home or self-care (01) | DRG 190 ==
LOC: ER 19:27 → MS 22:38
PROVIDERS: Family Medicine; Internal Medicine; Admitting Provider Internal Medicine; Emergency Provider Internal Medicine; Visit Provider Nurse Practitioner
DX: J44.1 Chronic obstructive pulmonary disease with (acute) exacerbation (principal); J96.01 Acute respiratory failure with hypoxia; M25.512 Pain in left shoulder; I25.10 Atherosclerotic heart disease of native coronary artery without angina pectoris; G25.81 Restless legs syndrome; I25.2 Old myocardial infarction; Z87.891 Personal history of nicotine dependence; G89.29 Other chronic pain; Z95.5 Presence of coronary angioplasty implant and graft; Z96.612 Presence of left artificial shoulder joint; Z96.611 Presence of right artificial shoulder joint; G47.00 Insomnia, unspecified; Z59.89 Other problems related to housing and economic circumstances; E66.9 Obesity, unspecified; Z68.38 Body mass index [BMI] 38.0-38.9, adult
CPT/HCPCS: 0202U; 36415; 71045; 80048; 83880; 84484; 85025; 85378; 93005; 94640; 94761; 96372; 96374; 96375; 96376; 99285; G0378; J2920; J2930; Q3014

== ENCOUNTER 2023-02-28 16:41 | Observation (INO) | payer SELFPAY ==
[2023-02-28] VITALS (37 sets, daily range): BP systolic 128–174; BP diastolic 84–120; PULSE 91–111; RESP 14–37; TEMP 36.1–36.4; O2SAT 92–99; BMI 38.7; BMI 39.5
--- NOTE | 2023-02-28 16:47 | ECG_ITS ---
The [facility] Test Date: 2023-02-28 Pat Name: BRYNN WRIGHT Department: Room: - Gender: Male Incident Response Lead: : 1970 Requested By: Order Number: [id number] Reading MD: DELPHINE STORM Measurements Intervals [place] Rate: 100 P: 61 AK: 160 QRS: -6 QRSD: 90 T: 99 QT: 336 QTc: 393 Interpretive Statements 1120 Sinus tachycardia 1570 with occasional ventricular premature complexes 3332 Anterolateral myocardial infarction, probably recent 3614 Cannot rule out inferior myocardial infarction, age undetermined 8102 Low QRS voltage in chest leads 9150 abnormal ECG Electronically Signed On 03-01-2023 6:48:29 EST by DELPHINE STORM
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
--- NOTE | 2023-02-28 17:07 | PC.NURSE ---
Patient arrives with c/o shortness of breath for past several days but worse today with associated chest burning that began today. patient c/o feeling like he can not catch his breath and feels he is having a flare up of his copd. patient reports significant heart history with several past MIs and bypass. family at bedside states patient has very dark circles under his eyes which are not normally there. patient also endorsing increased bilateral leg swelling
[2023-02-28 17:12] LABS: PCO2 VBG 40.8 mmHg (40.0-52.0); pH VBG 7.413 (7.330-7.430)
--- OUTSIDE RECORDS SUMMARY | 2023-02-28 17:13 | XMS_ITS | CCD ---
Author Name Unknown Address [address] [place] [address] Organization [facility] Care Team Providers Care Page Technician Name Role Phone Moises Patel Unavailable Unavaila ble Maykel Weathers II Unavailable Unavailable Unavailable Unavailable Unavailable Maykel Weathers Unavailable Unavailable Moises Patel Unavailable Moises Patel Unavailable Unavailable Patricia Louis Admitting Unavailable Patricia Louis Attending Unavailable Alajennyad, Alaa Admitting Unavailable Alajennyad, Alaa Attending Unavailable Samira Monzon Attending Unavailable Samira Monzon Admitting Unavailable Sofie Daigle Admitting Unavailable Sofie Daigle Attending Unavailable Unavailable Primary Care Provider Unavailabl e Moises Patel Primary Care Provider Un available Maykel Weathers II Unavailable Unavailable Maykel Weathers Unavailable Moises Patel Primary Care Provider Maykel Weathers Unavailable Carlo Mercedes Unavailable Maximiliano Chiang Unavailable Rubi White Chrissy Unavailable Devendra Freitas Unavailable Carlo Mercedes Unavailable Unavailable Maximiliano Chiang Unavailable Fauser, Nyoka Chrissy Unavailable Devendra Freitas Don Unavailable Moises Patel Primary Care Provider MOISES PATEL Primary Care Unavaila ble SYSTEM, PROVIDER NOT IN Attending Unavaila ble AMANDA, MOISES AGUILERA Primary Care Unavaila ble AMANDA, MOISES AGUILERA Primary Care Unavaila ble Jasiel CASEY MD, Maykel Burleson Unavailable [phone] Amanda WARREN, Moises Aguilera Primary Care Provider Daren WARREN, Carlo Unavailable Unavailable Андрей WARREN, Maximiliano Ray Unavailable Fauser HEALTH DIAGNOSTICS TEACHER, Nyoka Chrissy Unavailable [phone] Fortino OSBORN DO W. Don Unavailable Jasiel CASEY MD, Maykel Burleson Unavailable Moises Patel MD Primary Care Provider Андрей WARREN, Maximiliano Ray Unavailable Fauser HEALTH DIAGNOSTICS TEACHER, Nyoka Chrissy Unavailable Fortino OSBORN DO W. Don Unavailable [phone] Андрей WARREN, Jackson Ray Unavailable [phone] Fauser HEALTH DIAGNOSTICS TEACHER, Nyoka Chrissy Unavailable Fortino OSBORN DO W. Don Unavailable [phone] ANITA ROWLAND Attending Unavailab le MOISES PATEL Primary [facility] Unavaila ble AMANDA, MOISES AGUILERA Primary Care Unavaila ble CASSANDRA STEWART Attending Unavailable MELINDA FERNANDEZ Attending Unavailable [facility]A Primary Care Unavaila ble Amanda WARREN, Moises Heller Primary Care Provider Jasiel CASEY MD, Maykel Burleson Unavailable Moises Patel MD Primary Care Provider Андрей WARREN, Maximiliano Ray Unavailable [phone] Fauser HEALTH DIAGNOSTICS TEACHER, Nyoka Chrissy Unavailable Fortino OSBORN DO W. Don Unavailable MOISES PATEL Primary Care UnavailNGUYEN Hansen Attending Unavail able [facility] Consulting SLIM Del Real Attending UnavailMOISES Butts Primary Care Unavaila NOVA Queen Admitting Unavaila KANG Shaffer Consulting Unavailable Moises Patel MD Primary Care Provider MOISES PATEL Attending Unavailable SELF, SELF Referring Unavailable MOISES PATEL Primary Care Unavailable Jasiel CASEY MD, Maykel Burleson Unavailable Moises Patel MD Primary Care Provider Maximiliano Chiang MD Unavailable Cindy FERNANDEZ, Rubi Lowe Unavailable Fortino OSBORN DO, W. Don Unavailable Carlo Mercedes MD Unavailable Unavailable Moises Patel MD Primary Care Provider Moises Patel MD Primary Care Provider Carlo Mercedes MD Unavailable Unavailable MOISES PATEL Primary Care Unavaila JOSIAH Ogden Attending Unavailable DO Jasen Campbell Emergency Provider [phone] NON STAFF Primary Care Provider UnavailJasen Huynh Attending Unavailable Jasen Campbell Admitting Unavailable NON STAFF Primary Care Unavailable Allergies Allergy Classification Reported Allergen(s) Allergy Type Date of Onset Reaction(s) Facility Isosorbide (13 sources) Isosorbide Drug Allergy 5 Other (See Comments) [facility] (20 sources) isosorbide mononitrate; Translations: [ISOSORBIDE MONONITRATE] Propensity to adverse reactions to drug 5 Other (See Comments) [facility] Work Phone: Medications Current Medications Medication Drug Class(es) Dates Sig (Normalized) Sig (Original) acetaminophen 325 mg / oxyCODONE hydrochloride 5 mg oral tablet (11 sources) Opioid Agonist Start: 01-29-2019 End: 02-09-2019 take 1 tablet by mouth every four hours as needed for pain, then take 4.5 tablets by mouth as needed for pain oxyCODONE-acetami nophen (PERCOCET) 5-325 mg per tablet Indications: S/P CABG x 1 Take 1 (one) tablet by mouth every 4 (four) hours as needed for pain (Days supply per fill: 4.5) . 28 tablet 0 02/04/2019 02/09/2019 Active Start: 01-24-2019 End: 01-29-2019 take 1 tablet by mouth every two hours as needed oxyCODONE-acetaminophen (PERCOCET) 5-325 mg per tablet 1 tablet [id number] actuat albuterol 0.09 mg/actuat metered dose inhaler (20 sources) beta2-Adrenergic Agonist Start: 12-07-2022 take 1 puff(s) by inhalation every four hours Albuterol Sulfate (Ventolin Hfa) 90 mcg/actuation HFA aerosol inhaler Active 2 PUFF INHALATION Q4H December 07, 2022 12:00am Start: 01-21-2021 take 2 puff(s) by in halation every six hours as needed for wheezing albuterol 108 (90 Base) MCG/ACT Aero Soln inhaler Indications: Chronic obstructive pulmonary disease, unspecified COPD type Inhale 2 puffs every 6 hours as needed for Shortness of Breath or Wheezing. 18 g 11 01/21/2021 Active Start: 04-26-2020 take 2 puff(s) by in halation every six hours as needed for wheezing albuterol 108 (90 Base) MCG/ACT Aero Soln inhaler Indications: Chronic obstructive pulmonary disease, unspecified COPD type Inhale 2 puffs every 6 hours as needed for Shortness of Breath or Wheezing. 1 Inhaler 11 04/26/2020 Active Start: 09-22-2019 End: 09-23-2019 take 2.5 mg by inhalation every six hours as needed 2.5 mg, Nebulization, Every 6 hours PRN (RT), wheezing, Starting 09/22/19 at 1208 Start: 01-17-2019 End: 01-24-2019 take 2 puff(s) by inhalation every six hours as needed for wheezing 2 puff, Inhalation, Every 6 hours PRN, wheezing, shortness of breath, Starting 01/17/19 at 1627 SPACER REQUIRED FOR ADMINISTRATION Start: 12-17-2017 take 2.5 mg by inhal ation every six hours as needed albuterol (2.5 MG/3ML) 0.083% inhalation solution Take 3 mL by nebulization every 6 hours as needed for Shortness of Breath. 30 vial 11 12/17/2017 Active End: 01-17-2019 take 2 puff(s) by inhalation every six hours as needed ALBUTEROL SULFATE (VENTOLIN HFA INHL) Inhale 2 puffs every 6 (six) hours as needed . 0 01/17/2019 Discontinued (Error) ALBUTEROL SULFAT E (VENTOLIN HFA INHL) Inhale as needed 0 Active ALBUTEROL SULFAT E HFA IN take by inhalation.. Active ALBUTEROL SULFAT E (VENTOLIN HFA INHL) Inhale as needed Active albuterol 0.833 mg/ml / ipratropium bromide 0.167 mg/ml inhalation solution (13 sources) Anticholinergic, beta2-Adrenergic Agonist Start: 07-06-2020 take 3 mL by inhalation every four hours as needed for chronic obstructive pulmonary disease and chronic obstructive pulmonary disease ipratropium-albuterol 0.5-2.5 (3) MG/3ML nebulizer solution Indications: Chronic obstructive pulmonary disease, unspecified COPD type Take 3 mL by nebulization every 4 hours as needed for Shortness of Breath. 360 mL 3 07/06/2020 Active Start: 01-04-2019 End: 02-04-2019 3 mL, Nebulization, Every 6 hours scheduled (RT), First dose on Sun01/17/19 at 2000 Start: 09-27-2018 End: 09-27-2018 ipratropium-albuterol (DUO-N EB) 0.5-2.5 mg/3 ml nebulizer solution 3 mL albuterol 90 mcg/actuation inhaler (14 sources) take 2 puff(s) by inhalation every six hours as needed for wheezing albuterol 90 mcg/actuation inhaler Inhale 2 puffs every 6 (six) hours as needed for wheezing or shortness of breath . 0 Active atorvastatin 40 mg oral tablet (20 sources) HMG-CoA Reductase Inhibitor Start: 10-03-19 End: 01-01-20 take 1 tablet by mouth once daily atorvastatin (LIPITOR) 40 MG tablet Indications: Mixed hyperlipidemia , TIA (transient ischemic attack) Take 1 (one) tablet (40 mg total) by mouth nightly . 90 tablet 3 10/03/2019 Active Start: 09-23-2019 End: 09-23-2019 atorvastatin (LIPITOR) table t 40 mg Start: 09-22-2019 End: 09-23-2019 take 20 mg by mouth once daily 20 mg, Oral, Nightly, F irst dose on 09/22/19 at 2100 Start: 10-13-2015 End: 04-29-2019 take 1 tablet by mouth once daily atorvastatin (LIPITOR) 20 MG tablet Take 1 (one) tablet (20 mg total) by mouth daily. 90 tablet 3 06/11/2017 06/21/2018 Discontinued (Reorder (Suppress CancelRx Message to Pharmacy)) Start: 10-13-2015 take 1 tablet by julia th every month atorvastatin 20 MG Tab take 20 mg by mouth.. 10/13/2015 Active benzonatate 200 mg oral capsule (3 sources) Non-narcotic Antitussive Start: 07-06-2020 End: 12-14-2020 take 1 capsule by mouth three times daily as needed for cough benzonatate 200 MG capsule Indications: Chronic obstructive pulmonary disease with acute exacerbation , COPD with acute exacerbation Take 1 capsule by mouth 3 times daily as needed for Cough. 90 capsule 3 09/15/2020 Active blood-glucose meter kit (20 sources) Start: 01-28-2019 blood-glucose meter kit Indications: Type 2 diabetes mellitus with other circulatory complications (HCC) Use as instructed Dx E11.65 . 1 each 0 01/28/2019 Suspended Start: 01-28-2019 blood-glucose meter kit Indications: Type 2 diabetes mellitus with other circulatory complications (HCC) Use as instructed Dx E11.65 . 1 each 0 01/28/2019 Active Budesonide-Formoterol Fumara te (SYMBICORT IN) (2 sources) Budesonide-Formo terol Fumarate (SYMBICORT IN) take by inhalation.. Active BUDESONIDE/FORMOTEROL FUMARA TE (SYMBICORT INHL) (20 sources) BUDESONIDE/FORMO TEROL FUMARATE (SYMBICORT INHL) Inhale 2 (two) times a day 0 Active BUDESONIDE/FORMO TEROL FUMARATE (SYMBICORT INHL) Inhale 2 (two) times a day Active ciprofloxacin 500 mg oral tablet (4 sources) Quinolone Antimicrobial Start: 11-09-2021 take 1 tablet by mouth every twelve hours ciprofloxacin HCl (CIPRO) 500 MG tablet Take 1 (one) tablet (500 mg total) by mouth every 12 (twelve) hours . 56 tablet 0 11/09/2021 Active clopidogrel 75 mg oral tablet (20 sources) [id number] Platelet Inhibitor Start: 01-27-2019 End: 05-15-2022 take 1 tablet by mouth once daily clopidogreL (PLAVIX) 75 mg tablet Take 1 (one) tablet (75 mg total) by mouth daily . 90 tablet 1 02/14/2022 Active codeine phosphate 2 mg/ml / guaiFENesin 20 mg/ml oral solution (2 sources) Opioid Agonist Start: 09-15-2020 End: 09-25-2020 take 10 mL by mouth every four hours as needed guaifenesin-codeine (Cheratussin AC) 100-10 MG/5ML Syrup syrup Indications: Chronic obstructive pulmonary disease with acute exacerbation , COPD with acute exacerbation Take 10 mL by mouth every 4 hours as needed for Cold Symptoms for up to 10 days. 118 mL 0 09/15/2020 Active Continuous Blood Gluc Tiller Worker (PebbleStyle Glenna 2 [place] Systm) Device (1 source) Start: 12-27-2021 Continuous Blood Gluc Sensor (FreeStyle Glenna 2 Sensor Systm) Misc (1 source) Start: 12-27-2021 DISABILITY PLACARD (2 sources) Start: 04-13-2021 DISABILITY PLACARD Duration 1 year; dx shortness of breath 1 Each 0 04/13/2021 Active Start: 06-17-2020 DISABILITY SELWYN CARD Duration 1 year; dx shortness of breath 1 Each 0 06/17/2020 Active docusate sodium 100 mg oral capsule (17 sources) Start: 01-25-2019 End: 02-28-2019 take 1 capsule by mouth once daily for diarrhea docusate sodium (COLACE) 100 MG capsule Take 1 (one) capsule (100 mg total) by mouth daily Hold only for diarrhea . 30 capsule 0 01/29/2019 02/28/2019 Active ferrous sulfate 325 mg oral tablet (17 sources) Start: 01-25-2019 End: 02-28-2019 take 1 tablet by mouth three times daily at mealtime ferrous sulfate 325 (65 FE) MG tablet Take 1 (one) tablet (325 mg total) by mouth 3 (three) times a day with meals . 90 tablet 0 01/29/2019 02/28/2019 Active Fluticasone-Umecl idin-Vilant (Trelegy Ellipta) 200-62.5-25 MCG/INH Aerosol Powder, breath activated (1 source) Start: 07-14-2020 take 1 puff(s) by inhalation once daily Fluticasone-Umecli din-Vilant (Trelegy Ellipta) 200-62.5-25 MCG/INH Aerosol Powder, breath activated Indications: Chronic obstructive pulmonary disease, unspecified COPD type Inhale 1 puff daily. 1 Each 5 07/14/2020 Active Fluticasone-Umecl idin-Vilant (Trelegy Ellipta) 200-62.5-25 MCG/INH Aerosol Powder, breath activated (1 source) Start: 11-30-2021 take 1 puff(s) by inhalation once daily Fluticasone-Umecli din-Vilant (Trelegy Ellipta) 200-62.5-25 MCG/INH Aerosol Powder, breath activated Indications: Chronic obstructive pulmonary disease, unspecified COPD type Inhale 1 puff daily. 1 Each 11 11/30/2021 Active 3 ml insulin aspart, human 100 unt/ml pen injector (4 sources) Insulin Analog Start: 11-09-2021 inject 5 [IU] by subcutaneous injection three times daily before mealtime insulin aspart U-100 (NovoLOG Flexpen U-100 Insulin) 100 unit/mL (3 mL) InPn Inject 5 (five) Units under the skin 3 (three) times a day before meals . 15 mL 0 11/09/2021 Active Start: 11-09-2021 inject 15 [IU] by segura bcutaneous injection three times daily insulin aspart 100 UNIT/ML Solution Pen-injector injection Inject 15 Units under the skin 3 (three) times a day. 0 11/09/2021 Active sensor 3 ml insulin glargine 100 unt/ml pen injector (4 sources) Insulin Analog Start: 11-09-2021 insulin glargi ne (Lantus Solostar U-100 Insulin) 100 unit/mL (3 mL) InPn Inject 18 (eighteen) Units under the skin nightly . 15 mL 0 11/09/2021 Active Start: 11-09-2021 inject 18 [IU] by segura bcutaneous injection once daily insulin glargine 100 UNIT/ML Solution Pen-injector injection Inject 18 Units under the skin Every night. 0 11/09/2021 Active levoFLOXacin 500 mg oral tablet (3 sources) Quinolone Antimicrobial Start: 09-15-2020 End: 09-22-2020 take 1 tablet by mouth once daily levoFLOXacin 500 MG tablet Indications: Chronic obstructive pulmonary disease with acute exacerbation , COPD with acute exacerbation Take 1 tablet by mouth daily for 7 days. 7 tablet 0 09/15/2020 09/22/2020 Active Start: 09-27-2018 End: 09-27-2018 levoFLOXacin (LEVAQUIN) tabl et 500 mg Start: 09-27-2018 take 1 tablet by julia th once daily levoFLOXacin (LEVAQUIN) 500 MG tablet Take 1 (one) tablet (500 mg total) by mouth daily . 7 tablet 0 09/27/2018 Active losartan potassium 25 mg oral tablet (20 sources) Angiotensin 2 Receptor Jose Armando Start: 05-28-2020 End: 07-06-2022 take 1 tablet by mouth once daily losartan (COZAAR) 25 MG tablet Take 1 (one) tablet (25 mg total) by mouth daily . 90 tablet 1 02/14/2022 Active 24 hr metFORMIN hydrochloride 500 mg extended release oral tablet (4 sources) Biguanide Start: 11-30-2021 take 2 tablets by mouth once daily metFORMIN-XR 500 MG Tab SR 24 HR Indications: Type 2 diabetes mellitus without complication, without long-term current use of insulin Take 2 tablets by mouth daily. 180 tablet 1 11/30/2021 Active Start: 10-30-2021 take 1 tablet by julia th once daily at breakfast metFORMIN (GLUCOPHAGE-XR) 750 MG 24 hr tablet Take 1 (one) tablet (750 mg total) by mouth daily with breakfast . 30 tablet 0 10/30/2021 Active metoprolol tartrate 50 mg oral tablet (20 sources) beta-Adrenergic Jose Armando Start: 02-14-2022 take 1.5 tablets by mouth twice daily metoprolol tartrate (LOPRESSOR) 50 MG tablet Take 1.5 tablets(75mg) by mouth twice daily. . 270 tablet 1 02/14/2022 Active Start: 07-15-2020 End: 02-14-2022 take 1 tablet by mouth twice daily metoprolol tartrate 75 mg Tab Take 1 (one) tablet (75 mg total) by mouth 2 (two) times a day . 180 tablet 2 01/17/2021 07/06/2021 Discontinued (Reorder (Suppress CancelRx Message to Pharmacy)) Start: 10-16-2019 metoprolol tar trate (LOPRESSOR) tablet 75 mg Start: 01-29-2019 End: 04-13-2020 take 1 tablet by mouth twice daily metoprolol tartrate 75 mg Tab Take 1 (one) tablet (75 mg total) by mouth 2 (two) times a day . 180 tablet 1 04/13/2020 Active Start: 01-29-2019 End: 01-29-2019 metoprolol tartrate (LOPRESS OR) tablet 75 mg Start: 01-28-2019 End: 02-14-2022 metoprolol tartrate (LOPRESS OR) tablet 50 mg Start: 01-28-2019 End: 01-28-2019 metoprolol tartrate (LOPRESS OR) tablet 25 mg Start: 01-27-2019 metoprolol tar trate (LOPRESSOR) tablet 12.5 mg morphine sulfate 15 mg oral tablet (2 sources) Opioid Agonist Start: 12-07-2022 take 7.5 mg by mouth every six hours Morphine Active 7.5 MG PO Q6H 4 3 December 07, 2022 Start: 01-17-2019 End: 01-17-2019 morphine injection 2 mg omeprazole 40 mg delayed release oral capsule (20 sources) Proton Pump Inhibitor Start: 01-07-2018 End: 11-09-2021 take 1 capsule by mouth once daily omeprazole (PRILOSEC) 40 MG capsule Take 1 (one) capsule (40 mg total) by mouth daily . 30 capsule 0 11/09/2021 Active phenazopyridine hydrochloride 200 mg delayed release oral tablet (1 source) Start: 11-02-2021 take 1 tablet by mouth three times daily phenazopyridine 200 MG tablet Take 1 tablet by mouth 3 times daily for 3 days. 9 tablet 0 11/02/2021 Active pravastatin sodium 40 mg oral tablet (2 sources) HMG-CoA Reductase Inhibitor take 1 tablet by mouth every twenty-four hours pravastatin 40 MG PO TABS take 1 Tab by mouth every evening. Active predniSONE 10 mg oral tablet (20 sources) Start: 07-06-2020 End: 09-15-2020 predniSONE 10 MG tablet Indications: Chronic obstructive pulmonary disease with acute exacerbation , COPD with acute exacerbation 4 tabs x 3 days, 3 tabs x 3 days, 2 tabs x 3 Days, then 1 tab x 3 days 30 tablet 0 09/15/2020 Active Start: 10-17-2019 End: 10-16-2019 predniSONE (DELTASONE) table t 20 mg Start: 01-04-2019 End: 01-04-2019 predniSONE (DELTASONE) table t 60 mg Start: 01-04-2019 End: 01-09-2019 take 2 tablets by mouth twice daily predniSONE (DELTASONE) 10 MG tablet Indications: COPD exacerbation (HCC) Take 2 (two) tablets (20 mg total) by mouth 2 (two) times a day for 5 days . 10 tablet 0 01/04/2019 01/09/2019 Active Start: 09-27-2018 End: 10-02-2018 take 4 tablets by mouth once daily predniSONE (DELTASONE) 10 MG tablet Take 4 (four) tablets (40 mg total) by mouth daily for 5 days . 20 tablet 0 09/27/2018 10/02/2018 Active End: 10-30-2021 take 2 tablets by mouth once daily predniSONE (DELTASONE) 20 MG tablet Indications: COPD exacerbation Take 20 mg by mouth daily Take 2, 20 mg pills today, 2, 20 mg pills tomorrow, 10/17/19. Reasons: worsening chronic obstructive pulmonary disease. 0 10/30/2021 Discontinued (Error) rOPINIRole 2 mg oral tablet (20 sources) Nonergot Dopamine Agonist Start: 12-07-2022 take 2 mg by mouth once daily Ropinirole Active 2 MG PO Daily December 07, 2022 12:00am Start: 10-16-2019 End: 10-16-2019 take 2 mg by mouth once daily 2 mg, Oral, Nightly, [facility]ir [facility] dose on Huong 10/16/19 at 0200 Start: 09-22-2019 End: 09-23-2019 take 2 mg by mouth once daily 2 mg, Oral, Nightly, [facility]ir [facility] dose on 09/22/19 at 2100 Start: 08-26-2019 take 1 tablet by julia th once daily rOPINIRole 2 MG tablet Take 1 tablet by mouth daily. 90 tablet 5 10/15/2020 Active Start: 02-02-2019 End: 02-04-2019 take 2 mg by mouth once daily 2 mg, Oral, Nightly, [facility]ir [facility] dose on 02/02/19 at 2100 Start: 01-17-2019 End: 01-24-2019 take 2 mg by mouth once daily 2 mg, Oral, Nightly, [facility] dose on 01/17/19 at 2100 End: 04-24-2016 take 1 tablet by mouth once daily rOPINIRole (REQUIP) 1 MG tablet Take 1 mg by mouth daily 0 04/24/2016 Discontinued (Dose adjustment) take 2 tablets by mo uth every month rOPINIRole 1 MG Tab take 2 mg by mouth.. Active traZODone hydrochloride 100 mg oral tablet (20 sources) Serotonin Reuptake Inhibitor Start: 12-07-2022 take 100 mg by mouth once daily at bedtime Trazodone Active 100 MG PO Daily at bedtime December 07, 2022 12:00am Start: 12-27-2021 take 1 tablet by julia th once daily in the evening traZODone 100 MG tablet Indications: Insomnia, unspecified type Take 1 tablet by mouth every evening at 6 PM. 90 tablet 5 12/27/2021 Active Start: 03-03-2021 End: 12-27-2021 take 1 tablet by mouth once daily in the evening traZODone 50 MG tablet Indications: Insomnia, unspecified type Take 1 tablet by mouth every evening at 6 PM. 30 tablet 11 03/03/2021 12/27/2021 Discontinued (Reorder) Start: 04-08-2020 take 1 tablet by julia th once daily in the evening traZODone 50 MG tablet Indications: Insomnia, unspecified type Take 1 tablet by mouth every evening at 6 PM. 30 tablet 11 04/08/2020 Active Start: 09-22-2019 End: 09-23-2019 take 50 mg by mouth once daily as needed for sleep 50 mg, Oral, Nightly PRN, sleep, Starting 09/22/19 at 1208 Trelegy Ellipta 200-62.5-25 mcg DsDv (4 sources) Start: 09-08-2021 Trelegy Ellipt a 200-62.5-25 mcg DsDv by Oral Inhalation route daily . 0 09/08/2021 Active Completed/Discontinued Medications Medication Drug Class(es) Dates Sig (Normalized) Sig (Original) acetaminophen 325 mg oral tablet (20 sources) Start: 06-02-2020 End: 06-02-2020 take 1 tablet by mouth every four hours as needed 650 mg, Oral, Every 4 hours PRN, mild pain, fever 100.4 F or greater, headaches, Starting 06/02/20 at 1212 Start: 10-16-2019 End: 10-16-2019 take 1 tablet by mouth every four hours as needed 650 mg, Oral, Every 4 hours PRN, mild pain, fever 100.4 F or greater, headaches, Starting [facility] 10/16/19 at 0112 Start: 09-22-2019 End: 09-23-2019 take 1 tablet by mouth every four hours as needed 650 mg, Oral, Every 4 hours PRN, mild pain, fever 100.4 F or greater, headaches, Starting 09/22/19 at 1207 Start: 02-02-2019 End: 02-04-2019 take 1 tablet by mouth every six hours as needed 650 mg, Oral, Every 6 hours PRN, mild pain, Starting [place] 02/02/19 at 1052 Start: 01-29-2019 End: 02-28-2019 take 2 tablets by mouth every six hours as needed acetaminophen (TYLENOL) 325 MG tablet Take 2 (two) tablets (650 mg total) by mouth every 6 (six) hours as needed for pain . 30 tablet 0 01/29/2019 02/28/2019 Active Start: 01-27-2019 End: 01-28-2019 take 1000 mg intravenous route every six hours as needed acetaminophen (OFIRMEV) injection 1,000 mg Start: 01-24-2019 End: 01-25-2019 take 1000 mg intravenous route every six hours as needed acetaminophen (OFIRMEV) injection 1,000 mg Start: 01-24-2019 End: 01-29-2019 take 1 tablet by mouth every four hours as needed acetaminophen (TYLENOL) tablet 650 mg Start: 01-17-2019 End: 01-24-2019 take 1 tablet by mouth every four hours as needed 650 mg, Oral, Every 4 hours PRN, fever 100.4 F or greater, Starting 01/17/19 at 1633 30 actuat aclidinium bromide 0.4 mg/actuat dry powder inhaler (1 source) Start: 12-31-2019 End: 08-04-2021 take 1 puff(s) by inhalation twice daily Aclidinium [place] (Tudorza Pressair) 400 MCG/ACT Aerosol Powder, breath activated inhalation powder Indications: Chronic obstructive pulmonary disease with acute exacerbation , Chronic obstructive pulmonary disease, unspecified COPD type Inhale 1 puff 2 times daily. 1 Each 12/31/2019 09/15/2020 Discontinued aluminum hydroxide 40 mg/ml / magnesium hydroxide 40 mg/ml / simethicone 4 mg/ml oral suspension (2 sources) Start: 06-02-2020 End: 06-02-2020 take 30 mL by mouth every four hours as needed 30 mL, Oral, Every 4 hours PRN, indigestion, Starting Sun06/02/20 at 1212 Start: 01-22-2019 End: 01-24-2019 aluminum-magnesium hydroxide -simethicone (MAALOX PLUS) 200-200-20 mg/5 mL suspension 30 mL amLODIPine 10 mg oral tablet (14 sources) Dihydropyridine Calcium Channel Jose Armando Start: 07-07-2016 End: 07-07-2017 take 1 tablet by mouth once daily amLODIPine (NORVASC) 10 MG tablet Take 1 tablet (10 mg total) by mouth daily. 90 tablet 3 07/07/2016 07/07/2017 aspirin 81 mg delayed release oral tablet (20 sources) Nonsteroidal Anti-inflammatory Drug Start: 01-18-2019 End: 06-10-2020 take 81 mg by mouth once daily 81 mg, Oral, Daily, First dose on Huong 10/16/19 at 0900 DO NOT CRUSH OR CHEW. Start: 09-27-2018 End: 09-27-2018 aspirin chewable tablet 324 mg End: 09-15-2020 take 1 tablet by mouth once daily aspirin 81 MG PO TABS take 1 Tab by mouth daily. 0 09/15/2020 Discontinued azithromycin 250 mg oral tablet (20 sources) Macrolide Antimicrobial Start: 10-16-2019 End: 10-16-2019 azithromycin (ZITHROMAX) tablet 500 mg End: 10-30-2021 azithromycin (ZITHROMAX) 1 g joanna powder Indications: chronic bronchitis with bacterial exacerbation , COPD Take 1 packet by mouth once 5 days, 1 daily. Reasons: bacterial infection with chronic bronchitis, COPD. 0 10/30/2021 Discontinued (Error) bisacodyl 10 mg rectal suppository (1 source) Stimulant Laxative Start: 01-26-2019 End: 01-29-2019 bisacodyl (DULCOLAX) suppository 10 mg Budesonide / formoterol (20 sources) Corticosteroid, beta2-Adrenergi c Agonist Start: 10-16-2019 End: 10-16-2019 take 2 puff(s) by inhalation twice daily 2 puff, Inhalation, 2 times daily, First dose on Huong 10/16/19 at 0900 SPACER REQUIRED FOR ADMINISTRATION Start: 09-22-2019 End: 09-23-2019 take 2 puff(s) by inhalation twice daily 2 puff, Inhalation, 2 times daily, First dose on Sun09/22/19 at 1300 SPACER REQUIRED FOR ADMINISTRATION Start: 02-02-2019 End: 02-04-2019 take 2 puff(s) by inhalation twice daily 2 puff, Inhalation, 2 times daily (RT), First dose on Sun02/02/19 at 1100 SPACER REQUIRED FOR ADMINISTRATION Start: 01-17-2019 End: 01-29-2019 take 2 puff(s) by inhalation twice daily 2 puff, Inhalation, 2 times daily (RT), First dose on Sun01/17/19 at 2000 SPACER REQUIRED FOR ADMINISTRATION End: 05-28-2020 take 2 puff(s) by inhalation twice daily budesonide-formoterol (Symbicort) 160-4.5 mcg/actuation inhaler Inhale 2 puffs 2 (two) times a day . 0 05/28/2020 Discontinued (Discontinued by another clinician) take 2 puff(s) by in halation twice daily budesonide-formoterol (Symbicort) 160-4.5 mcg/actuation inhaler Inhale 2 puffs 2 (two) times a day . 0 Active take 2 puff(s) by in halation twice daily budesonide-formoterol (Symbicort) 160-4.5 mcg/actuation inhaler Inhale 2 puffs 2 (two) times a day . 0 Suspended calcium carbonate 500 mg chewable tablet (1 source) Start: 01-22-2019 End: 01-24-2019 calcium carbonate (TUMS) chewable tablet 500 mg carvedilol 12.5 mg oral tablet (20 sources) alpha-Adrenergic Jose Armando, beta-Adrenergic Jose Armando Start: 01-26-2019 End: 01-27-2019 carvedilol (COREG) tablet 25 mg Start: 01-26-2019 End: 01-26-2019 carvedilol (COREG) tablet 12 .5 mg Start: 01-25-2019 End: 01-26-2019 carvedilol (COREG) tablet 6. 25 mg Start: 01-17-2019 End: 01-24-2019 take 25 mg by mouth twice daily at mealtime 25 mg, Oral, 2 times daily with meals, First dose on Sun01/17/19 at 1730 Give carvedilol with food to reduce risk of hypotension / dizziness. Separate from admin of DANILO inhibitors by two hours. Start: 12-26-2018 End: 01-29-2019 take 1 tablet by mouth twice daily at mealtime carvedilol (COREG) 25 MG tablet Take 1 (one) tablet (25 mg total) by mouth 2 (two) times a day with meals . 180 tablet 3 12/26/2018 01/29/2019 Discontinued (Stop Taking at Discharge) Start: 04-06-2017 End: 12-26-2018 take 1 tablet by mouth twice daily at mealtime carvedilol (COREG) 12.5 MG tablet Take 1 (one) tablet (12.5 mg total) by mouth 2 (two) times a day with meals. 180 tablet 3 06/11/2017 06/21/2018 Discontinued (Reorder (Suppress CancelRx Message to Pharmacy)) Start: 07-07-2016 End: 07-07-2016 take 1 tablet by mouth twice daily at mealtime carvedilol (COREG) 12.5 MG tablet Take 1 tablet (12.5 mg total) by mouth 2 (two) times a day with meals. 180 tablet 3 07/07/2016 Active take 1 tablet by julia th twice daily carveDILOL 25 MG PO TABS take 1 Tab by mouth 2 times daily. Active ceFAZolin 2000 mg injection (1 source) Cephalosporin Antibacterial Start: 01-24-2019 End: 01-26-2019 take 2000 mg intravenous route every eight hours ceFAZolin (ANCEF) IVPB 2 g (premix) clindamycin 300 mg oral capsule (2 sources) Lincosamide Antibacterial End: 09-23-2019 take 1 capsule by mouth three times daily clindamycin (CLEOCIN) 300 MG capsule Take 300 mg by mouth 3 (three) times a day . 0 09/23/2019 Discontinued (Stop Taking at Discharge) cyclobenzaprine hydrochloride 5 mg oral tablet (9 sources) Muscle Relaxant Start: 10-12-2016 End: 09-20-2017 take 1 tablet by mouth once daily cyclobenzaprine (FLEXERIL) 5 MG tablet Take 5 mg by mouth nightly. 0 10/12/2016 09/20/2017 Discontinued (Discontinued by another clinician) diazePAM 5 mg oral tablet (5 sources) Benzodiazepine Start: 01-31-2019 End: 02-04-2019 take 1 tablet by mouth twice daily as needed for anxiety diazePAM (VALIUM) 5 MG tablet Indications: muscle spasm Take 5 mg by mouth 2 (two) times a day as needed for anxiety Reasons: muscle spasm. 0 01/31/2019 02/04/2019 Discontinued (Stop Taking at Discharge) enalapril maleate 5 mg oral tablet (20 sources) Angiotensin Converting Enzyme Inhibitor Start: 09-20-2017 End: 01-29-2019 take 1 tablet by mouth twice daily enalapril (VASOTEC) 5 MG tablet Take 1 (one) tablet (5 mg total) by mouth 2 (two) times a day. 180 tablet 3 09/20/2017 06/21/2018 Discontinued (Reorder (Suppress CancelRx Message to Pharmacy)) Start: 10-08-2015 End: 09-20-2017 take 1 tablet by mouth once daily enalapril (VASOTEC) 5 MG tablet Take 1 tablet (5 mg total) by mouth daily. 90 tablet 3 07/07/2016 07/04/2017 Discontinued (Reorder (Suppress CancelRx Message to Pharmacy)) 0.4 ml enoxaparin sodium 100 mg/ml prefilled syringe (4 sources) Low Molecular Weight Heparin Start: 09-23-2019 End: 09-23-2019 enoxaparin (LOVENOX) syringe 40 mg Start: 09-22-2019 End: 09-23-2019 inject 40 mg by subcutaneous injection once daily 40 mg, Subcutaneous, Daily, First dose on Sun09/22/19 at 1330 Administer in abdomen unless otherwise directed by prescriber. Notify physician if patient refuses. Indication: VTE Prophylaxis Start: 01-25-2019 End: 01-29-2019 enoxaparin (LOVENOX) syringe 40 mg EPINEPHrine (ADRENALIN) 4 mg in sodium chloride 0.9 % (NS) 250 mL infusion (1 source) Start: 01-27-2019 End: 01-28-2019 EPINEPHrine (ADRENALIN) 4 mg in sodium chloride 0.9 % (NS) 250 mL infusion famotidine 20 mg oral tablet (9 sources) Histamine-2 Receptor Antagonist End: 10-26-2016 take 2 tablets by mouth twice daily famotidine (PEPCID) 20 MG tablet Take 40 mg by mouth 2 (two) times a day . 0 10/26/2016 Discontinued (Patient's Request) 60 actuat fluticasone propionate 0.25 mg/actuat / salmeterol 0.05 mg/actuat dry powder inhaler (20 sources) Corticosteroid, beta2-Adrenergic Agonist Start: 04-26-2020 End: 09-15-2020 take 1 puff(s) by mouth twice daily fluticasone-salmete rol (Advair Diskus) 250-50 MCG/DOSE Aerosol Powder, breath activated inhaler Indications: Chronic obstructive pulmonary disease, unspecified COPD type Inhale 1 puff 2 times daily. After administration, rinse mouth with water and spit. 1 Inhaler 11 04/26/2020 09/15/2020 Discontinued take 1 puff(s) by in halation twice daily fluticasone propion-salmeteroL (ADVAIR DISKUS) 250-50 mcg/dose diskus inhaler Inhale 1 puff 2 (two) times a day . 0 Active furosemide 20 mg oral tablet (20 sources) Loop Diuretic Start: 03-11-2019 End: 11-09-2021 take 1 tablet by mouth once daily furosemide (Lasix) 20 MG tablet Take 1 (one) tablet (20 mg total) by mouth daily . 30 tablet 03/11/2019 11/09/2021 Discontinued (Stop Taking at Discharge) Start: 01-20-2019 End: 01-24-2019 20 mg, Intravenous, Every 8 hours scheduled, First dose on 01/20/19 at 1600 Start: 11-26-2018 End: 01-29-2019 take 40 mg by mouth once daily 40 mg, Oral, Daily, Fir st dose on 01/18/19 at 0900 Start: 09-20-2017 End: 03-06-2019 furosemide (LASIX) 20 MG tab let TAKE NEEDED FOR WEIGHT GAIN DIRECTED; MAX 1 TABLET PER DAY 90 tablet 3 09/20/2017 11/20/2018 Discontinued (Reorder (Suppress CancelRx Message to Pharmacy)) Start: 09-20-2017 End: 09-20-2017 furosemide (LASIX) 20 MG tab let As needed for weight gain. 30 tablet 11 09/20/2017 09/20/2017 Discontinued (Reorder (Suppress CancelRx Message to Pharmacy)) Start: 09-20-2017 End: 09-20-2017 furosemide (LASIX) 20 MG tab let As needed for weight gain. 30 tablet 11 09/20/2017 09/20/2017 Discontinued gabapentin 300 mg oral capsule (13 sources) Anti-epileptic Agent Start: 02-03-2019 End: 02-18-2019 take 1 capsule by mouth every eight hours gabapentin (NEURONTIN) 300 MG capsule Take 1 (one) capsule (300 mg total) by mouth every 8 (eight) hours for 14 days . 42 capsule 0 02/04/2019 02/13/2019 Discontinued (Therapy completed) End: 04-03-2019 take 12-24 capsules by mouth three times daily as needed gabapentin (NEURONTIN) 300 MG capsule Take 300 mg by mouth 3 (three) times a day as needed filled 02-04-19 #42 for 14 days . 0 04/03/2019 Discontinued (Patient's Request) gadoterate meglumine (DOTAREM) injection 40 mL (1 source) Start: 12-25-2018 End: 12-25-2018 gadoterate meglumine (DOTAREM) injection 40 mL 250 ml glucose 50 mg/ml / sodium chloride 4.5 mg/ml injection (1 source) Start: 01-24-2019 End: 01-29-2019 dextrose 5 % and sodium chloride 0.45 % infusion 250 ml heparin sodium, porcine 100 unt/ml injection (2 sources) Unfractionated Heparin, Anti-coagulant Start: 01-21-2019 End: 01-24-2019 heparin (porcine) 25,000 unit/250 mL(100 unit/mL) in D5W infusion Start: 01-17-2019 End: 01-20-2019 heparin (porcine) 25,000 uni t/250 mL(100 unit/mL) in D5W infusion heparin bolus from bag 0-5,0 00 Units (2 sources) Start: 01-21-2019 End: 01-24-2019 heparin bolus from bag 0-5,0 00 Units Start: 01-17-2019 End: 01-20-2019 heparin bolus from bag 0-5,0 00 Units hydrALAZINE hydrochloride 25 mg oral tablet (1 source) Arteriolar Vasodilator Start: 01-25-2019 End: 01-29-2019 take 1 tablet by mouth every six hours as needed hydrALAZINE (APRESOLINE) tablet 25 mg hydroCHLOROthiazide 25 mg oral tablet (19 sources) Thiazide Diuretic Start: 12-26-2018 End: 12-26-2019 take 1 tablet by mouth once daily hydroCHLOROthiazide (HYDRODIURIL) 25 MG tablet Take 1 (one) tablet (25 mg total) by mouth daily . 90 tablet 3 12/27/2018 01/29/2019 Discontinued (Stop Taking at Discharge) Start: 07-07-2016 End: 07-07-2017 take 1 capsule by mouth once daily hydroCHLOROthiazide (MICROZIDE) 12.5 mg capsule Take 1 capsule (12.5 mg total) by mouth daily. 90 capsule 3 07/07/2016 07/07/2017 Discontinued (Duplicate order (Suppress CancelRx Message to Pharmacy)) Start: 05-07-2015 End: 05-06-2016 take 0.5 tablet by mouth once daily hydrochlorothiazide (HYDRODIURIL) 50 MG tablet Take 0.5 tablets (25 mg total) by mouth daily. 90 tablet 4 05/07/2015 05/06/2016 Discontinued (Duplicate order (Suppress CancelRx Message to Pharmacy)) 1 ml HYDROmorphone hydrochloride 1 mg/ml injection (1 source) Opioid Agonist Start: 01-24-2019 End: 01-24-2019 0.25 mg, Intravenous, Every 15 min PRN, moderate to severe pain, D/C on extubation, Starting Sun01/24/19 at 1119, For 12 doses hydrOXYzine hydrochloride 25 mg oral tablet (2 sources) Antihistamine Start: 01-21-2019 End: 01-24-2019 take 1 tablet by mouth every six hours as needed hydrOXYzine (ATARAX) tablet 25 mg Start: 11-08-2015 End: 10-26-2016 take 25 tablets by mouth every twelve hours hydrOXYzine (ATARAX) 25 MG tablet Take 25 mg by mouth every 12 (twelve) hours as needed for itching. 11/08/2015 10/26/2016 Discontinued insulin bolus from bag 0-10 Units (1 source) Start: 01-24-2019 End: 01-24-2019 insulin bolus from bag 0-10 Units insulin lispro 100 unt/ml injectable solution (4 sources) Insulin Analog Start: 09-22-2019 End: 09-23-2019 inject 1 dose by subcutaneous injection once daily 0-15 Units, Subcutaneous, At bedtime, First dose on Sun09/22/19 at 2100 For Nightly Insulin Dose Coverage, use: CORRECTIVE (Only) for BG greater than 300 Nightly CORRECTIVE Dose Method: Specific Corrective Dose Nightly Specific CORRECTIVE dose (units of insulin): 2 For Downtime Calculator, use: Insulin SC NIGHTtime Start: 09-22-2019 End: 09-23-2019 inject 1 dose by subcutaneous injection three times daily before mealtime 0-30 Units, Subcutaneous, 3 times daily before meals, First dose on Sun09/22/19 at 1300 Dose should be given 10-15 minutes before a meal. If poor oral intake, nausea or blood glucose value < 80 before meal, give of the dose (rounded up to nearest unit) immediately after meal completed. If patient skipping meal, hold base prandial dose and continue to use corrective insulin as ordered. Once diet resumed, total base prandial + corrective doses may be given. Prandial Insulin Dosing Method: Specific Prandial Doses Specific Prandial Dose (units of Insulin): 0 Corrective Insulin Regimen (select desired scale to cover BG result): Conservative Scale For Downtime Calculator, use: Insulin SC MEALtime PREprandial Start: 01-25-2019 End: 01-29-2019 insulin lispro (HumaLOG) inj ection 0-20 Units insulin regular in 0.9 % NaCl (MYXREDLIN) 100 Units/100 mL infusion (1 source) Start: 01-24-2019 End: 01-25-2019 insulin regular in 0.9 % NaCl (MYXREDLIN) 100 Units/100 mL infusion 200 actuat ipratropium bromide 0.017 mg/actuat metered dose inhaler (1 source) Anticholinergic Start: 04-29-2020 End: 09-15-2020 ipratropium 17 MCG/ACT Aero Soln inhaler Inhale 2 puffs every 6 hours. max 12 inhalations/day 1 Inhaler 0 04/29/2020 09/15/2020 Discontinued levalbuterol 2.5 mg/ml inhalant solution (2 sources) beta2-Adrenergic Agonist Start: 02-02-2019 End: 02-04-2019 take 1.25 mg by inhalation every four hours as needed levalbuterol (XOPENEX) nebulizer solution 1.25 mg Start: 01-24-2019 End: 01-29-2019 take 1.25 mg by inhalation every four hours as needed levalbuterol (XOPENEX) nebulizer solution 1.25 mg 500 ml lidocaine hydrochloride 4 mg/ml injection (1 source) Antiarrhythmic, Amide Local Anesthetic Start: 01-24-2019 End: 01-25-2019 lidocaine 4 mg/mL in dextrose 5% infusion lisinopril 5 mg oral tablet (2 sources) Angiotensin Converting Enzyme Inhibitor Start: 01-26-2019 End: 01-27-2019 lisinopril (PRINIVIL,ZESTRIL) tablet 2.5 mg Start: 01-18-2019 End: 01-24-2019 take 10 mg by mouth once daily at lunch 10 mg, Oral, Daily with lunch, First dose on 01/18/19 at 1200 loratadine 10 mg oral tablet (9 sources) End: 10-26-2016 take 1 tablet by mouth once daily loratadine (CLARITIN) 10 mg tablet Take 10 mg by mouth daily 0 10/26/2016 Discontinued (Patient's Request) LORazepam 1 mg oral tablet (3 sources) Benzodiazepine Start: 01-20-2019 End: 01-24-2019 take 1 tablet by mouth every six hours as needed LORazepam (ATIVAN) tablet 0.5 mg Start: 12-13-2015 End: 10-26-2016 take 1 tablet by mouth at bedtime LORazepam (ATIVAN) 0.5 MG tablet Take 0.5 mg by mouth at bedtime. 12/13/2015 10/26/2016 Discontinued methylPREDNISolone 40 mg injection (2 sources) Corticosteroid Start: 09-27-2018 End: 09-27-2018 methylPREDNISolone sod suc(PF) (SOLU-medrol) 40 mg Start: 10-12-2016 End: 10-26-2016 methylPREDNISolone (MEDROL, KYLAH,) 4 mg tablet Take 4 mg by mouth Use as directed . 10/12/2016 10/26/2016 Discontinued montelukast 10 mg oral tablet (9 sources) Leukotriene Receptor Antagonist End: 10-26-2016 take 1 tablet by mouth once daily montelukast (SINGULAIR) 10 mg tablet Take 10 mg by mouth daily 0 10/26/2016 Discontinued (Patient's Request) mupirocin 0.02 mg/mg topical ointment (1 source) RNA Synthetase Inhibitor Antibacterial Start: 01-20-2019 End: 01-26-2019 mupirocin (BACTROBAN) 2 % ointment (sub for nasal use) Naloxone (1 source) Opioid Antagonist Start: 02-02-2019 End: 02-04-2019 naloxone (NARCAN) injection 0.1 mg nitroglycerin 0.4 mg sublingual tablet (10 sources) Nitrate Vasodilator Start: 06-02-2020 End: 06-02-2020 nitroGLYCERIN (NITROSTAT) SL tablet 0.4 mg Start: 01-17-2019 End: 01-24-2019 nitroGLYCERIN (NITRO-BID) 2 % ointment 1 inch Start: 07-17-2016 End: 10-26-2016 nitroGLYCERIN (NITROSTAT) 0. 4 MG SL tablet ONE TABLET UNDER TONGUE NEEDED FOR CHEST PAIN(CALL 911 AFTER FIRST DOSE) 175 tablet 11 07/17/2016 10/26/2016 Discontinued Start: 04-24-2016 End: 07-17-2016 nitroGLYCERIN (NITROSTAT) 0. [address] 0.4 mg under the tongue every 5 (five) minutes as needed for chest pain . 11 04/24/2016 07/17/2016 Discontinued (Reorder (Suppress CancelRx Message to Pharmacy)) ondansetron 4 mg disintegrating oral tablet (5 sources) Serotonin-3 Receptor Antagonist Start: 09-22-2019 End: 09-23-2019 take 1 tablet by mouth every six hours as needed 4 mg, Oral, Every 6 hours PRN, nausea, vomiting, Starting 09/22/19 at 1330 Use oral route first, if tolerated. Formulation requires tablet remain in sealed package until immediately prior to dose being administered. Start: 09-22-2019 End: 09-23-2019 take 4 mg intravenous route every six hours as needed 4 mg, Intravenous, Every 6 hours PRN, nausea, vomiting, Starting 09/22/19 at 1207 Use oral route first, if tolerated. Start: 01-18-2019 End: 01-29-2019 take 4 mg intravenous route every six hours as needed ondansetron (ZOFRAN) injection 4 mg Start: 01-17-2019 End: 01-17-2019 ondansetron (ZOFRAN) injecti on 4 mg ondansetron (ZOFRAN-ODT) disintegrating tablet 4 mg (2 sources) Start: 06-02-2020 End: 06-02-2020 take 1 tablet by mouth every six hours as needed ondansetron (ZOFRAN-ODT) disintegrating tablet 4 mg Start: 10-16-2019 End: 10-16-2019 take 1 tablet by mouth every six hours as needed ondansetron (ZOFRAN-ODT) disintegrating tablet 4 mg pantoprazole 40 mg delayed release oral tablet (7 sources) Proton Pump Inhibitor Start: 10-16-2019 End: 10-16-2019 take 40 mg by mouth once daily 40 mg, Oral, Daily, First dose on Huong 10/16/19 at 0900 DO NOT CRUSH OR CHEW. Start: 09-22-2019 End: 09-23-2019 take 40 mg by mouth once daily 40 mg, Oral, Daily, Fir st dose on 09/22/19 at 1330 DO NOT CRUSH OR CHEW. Start: 02-02-2019 End: 02-04-2019 take 40 mg by mouth once daily 40 mg, Oral, Daily, Fir st dose on 02/02/19 at 1300 DO NOT CRUSH OR CHEW. Start: 01-25-2019 End: 01-29-2019 pantoprazole (PROTONIX) EC t ablet 40 mg Start: 01-24-2019 End: 01-24-2019 pantoprazole (PROTONIX) inje ction 40 mg Start: 01-18-2019 End: 01-24-2019 pantoprazole (PROTONIX) EC t ablet 40 mg perflutren lipid microsphere s (DEFINITY) 0.143 mg/mL solution 0-10 mL of mixture (4 sources) Start: 10-16-2019 End: 10-16-2019 0-10 mL of mixture, Intravenous, Once in imaging, contrast, IF suboptimal echo, Starting Huong 10/16/19 at 0112, For 48 hours Prepare syringe by withdrawing 1.3 mL of perflutren (DEFINITY) from the 2ml vial. Further dilute the 1.3 mL of perflutren with Sodium Chloride (NS) 0.9% to total volume of 10 ml. Chart total ML OF MIXTURE given to patient. Start: 01-27-2019 End: 01-28-2019 perflutren lipid microsphere s (DEFINITY) 0.143 mg/mL solution 0-10 mL of mixture Start: 01-20-2019 End: 01-22-2019 perflutren lipid microsphere s (DEFINITY) 0.143 mg/mL solution 0-10 mL of mixture Start: 12-10-2018 End: 12-10-2018 perflutren lipid microsphere s (DEFINITY) 0.143 mg/mL solution 0-10 mL of mixture permethrin 50 mg/ml topical cream (1 source) Pyrethroid Start: 11-05-2015 End: 10-26-2016 permethrin (ELIMITE) 5 % cream Apply topically Apply from head to feet once leave on for 8-14 hours, then wash off . 11/05/2015 10/26/2016 Discontinued microencapsulated potassium chloride 10 meq extended release oral tablet (20 sources) Start: 09-22-2019 End: 09-23-2019 10 mEq, Oral, Daily, First dose on 09/22/19 at 1330 DO NOT CRUSH OR CHEW Start: 04-09-2019 End: 11-09-2021 take 1 tablet by mouth once daily potassium chloride (K-DUR) 10 MEQ CR tablet Take 1 (one) tablet (10 mEq total) by mouth daily . 90 tablet 3 04/09/2019 11/09/2021 Discontinued (Stop Taking at Discharge) Start: 02-02-2019 End: 04-03-2019 take 1 tablet by mouth once daily potassium chloride SA (K-DUR,KLOR-CON) 20 MEQ tablet Take 1 (one) tablet (20 mEq total) by mouth daily . 30 tablet 0 02/04/2019 03/06/2019 Active Start: 01-24-2019 End: 01-24-2019 potassium chloride 20 mEq in 100 mL IVPB Start: 01-18-2019 End: 01-24-2019 10 mEq, Oral, Daily, First d ose on 01/18/19 at 0900 DO NOT CRUSH OR CHEW Start: 11-26-2018 End: 01-29-2019 take 1 tablet by mouth twice daily potassium chloride SA (K-DUR,KLOR-CON) 10 MEQ tablet Take 1 (one) tablet (10 mEq total) by mouth 2 (two) times a day . 60 tablet 11 11/26/2018 11/26/2018 Discontinued (Reorder (Suppress CancelRx Message to Pharmacy)) take 1 tablet by julia th once daily, then take 1 tablet by mouth potassium chloride (K-DUR) 10 MEQ CR tablet Take 10 mEq by mouth daily . 0 Active End: 02-26-2019 take 1 tablet by mouth twice daily, then take 1 tablet by mouth potassium chloride SA (K-DUR,KLOR-CON) 20 MEQ tablet Take 20 mEq by mouth 2 (two) times a day . 0 02/26/2019 Discontinued (Duplicate order) take 1 tablet by julia th once daily, then take 1 tablet by mouth potassium chloride SA (K-DUR,KLOR-CON) 20 MEQ tablet Take 20 mEq by mouth daily . 0 Active End: 01-29-2019 take 1 tablet by mouth twice daily, then take 1 tablet by mouth potassium chloride (K-DUR) 10 MEQ CR tablet Take 10 mEq by mouth 2 (two) times a day . 0 01/29/2019 Discontinued (Stop Taking at Discharge) povidone-iodine 0.1 mg/mg topical ointment (6 sources) Antiseptic End: 02-21-2019 povidone-iodine (BETADINE) 10 % ointment Apply 1 application topically 2 (two) times a day . 0 02/21/2019 Discontinued (Therapy completed) prasugrel 10 mg oral tablet (20 sources) [id number] Platelet Inhibitor Start: 01-26-2019 End: 01-26-2019 take 10 mg by mouth once daily 10 mg, Oral, Daily, First dose (after last reorder) on 01/26/19 at 1000 Start: 04-06-2017 End: 01-29-2019 take 1 tablet by mouth once daily prasugrel (EFFIENT) 10 mg tablet Take 1 (one) tablet (10 mg total) by mouth daily. 90 tablet 3 06/11/2017 06/21/2018 Discontinued (Reorder (Suppress CancelRx Message to Pharmacy)) Start: 10-08-2015 End: 07-07-2016 take 1 tablet by mouth once daily prasugrel (EFFIENT) 10 mg tablet Take 1 tablet (10 mg total) by mouth daily. 90 tablet 3 07/07/2016 Active Start: 10-08-2015 take 1 tablet by julia th every month Prasugrel HCl 10 MG Tab take 10 mg by mouth.. 10/08/2015 Active 12 hr ranolazine 500 mg extended release oral tablet (2 sources) Anti-anginal End: 05-01-2016 take 1 tablet by mouth twice daily ranolazine (RANEXA) 500 MG 12 hr tablet Take 1,000 mg by mouth 2 (two) times a day. 0 05/01/2016 Discontinued (Alternate therapy) End: 10-26-2016 take 1 tablet by mouth twice daily ranolazine (RANEXA) 1,000 mg SR tablet Take 1,000 mg by mouth 2 (two) times a day. 10/26/2016 Discontinued regadenoson (LEXISCAN) 0.4 mg/5 mL injection - ADS Override Pull (1 source) Start: 05-28-2020 End: 05-28-2020 regadenoson (LEXISCAN) 0.4 mg/5 mL injection - ADS Override Pull regular insulin, human 100 unt/ml injectable solution (1 source) Insulin Start: 01-24-2019 End: 01-29-2019 insulin regular (HumuLIN R, NovoLIN R) injection 0-10 Units rivaroxaban 20 mg oral tablet (17 sources) Factor Xa Inhibitor Start: 08-23-2020 End: 11-09-2021 take 1 tablet by mouth once daily rivaroxaban (Xarelto) 20 mg Tab Take 1 (one) tablet (20 mg total) by mouth daily . 30 tablet 6 08/23/2020 11/09/2021 Discontinued (Stop Taking at Discharge) Start: 2020 End: 08-19-2020 take 1 tablet by mouth once daily Xarelto 20 mg Tab TAKE 1 TABLET(20 MG) BY MOUTH DAILY 30 tablet 11 2020 08/19/2020 Discontinued (Reorder) Start: 06-11-2020 End: 08-06-2020 take 1 tablet by mouth once daily rivaroxaban (XARELTO) 20 mg Tab Take 1 (one) tablet (20 mg total) by mouth daily . 30 tablet 1 06/11/2020 08/06/2020 Discontinued Sodium Chloride (12 sources) Start: 06-02-2020 End: 06-02-2020 sodium chloride (PF) (NS) fl ush 5 mL Start: 06-02-2020 End: 06-02-2020 sodium chloride 0.9% (NS) Start: 10-15-2019 End: 10-16-2019 sodium chloride (PF) (NS) fl ush 5 mL Start: 09-22-2019 End: 09-23-2019 sodium chloride (PF) (NS) fl ush 5 mL Start: 09-22-2019 End: 09-22-2019 sodium chloride 0.9% (NS) Start: 01-27-2019 End: 01-27-2019 sodium chloride 0.9% (NS) abrahan antonia 500 mL Start: 01-24-2019 End: 01-28-2019 sodium chloride 0.9% (NS) Start: 01-24-2019 End: 01-28-2019 sodium chloride 0.9% for pre ssurized line Start: 01-24-2019 End: 01-29-2019 sodium chloride (PF) (NS) fl ush 5 mL Start: 01-17-2019 End: 01-17-2019 sodium chloride 0.9% (NS) abrahan antonia 500 mL sodium nitroPRUSSIDe (NIPRIDE) 50 mg in dextrose (D5W) 5% 250 mL infusion (1 source) Start: 01-24-2019 End: 01-25-2019 sodium nitroPRUSSIDe (NIPRIDE) 50 mg in dextrose (D5W) 5% 250 mL infusion sucralfate 100 mg/ml oral suspension (1 source) Aluminum Complex Start: 01-24-2019 End: 01-24-2019 sucralfate (CARAFATE) 100 mg/mL suspension 1 g technetium (Tc-99m) tetrofosmin (Tc-MYOVIEW) injection 8-25 millicurie (2 sources) Start: 05-28-2020 End: 05-28-2020 technetium (Tc-99m) tetrofosmin (Tc-MYOVIEW) injection 8-25 millicurie Start: 05-28-2020 End: 05-28-2020 technetium (Tc-99m) tetrofos min (Tc-MYOVIEW) injection 8-25 millicurie 10 actuat tiotropium 0.0025 mg/actuat inhalation spray (17 sources) Anticholinergic Start: 04-26-2020 End: 10-30-2021 take 2 puff(s) by inhalation once daily tiotropium bromide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 Additional signs and symptoms: Diffuse hepatic steatosis with areas of probable fatty sparing measuring up to 5.4 cm. Enhancing hepatic lesions cannot be excluded on this single phase exam. ORDERING SYSTEM PROVIDED DIAGNOSIS CODES: N41.0 Acute prostatitis E11.65 Type 2 diabetes mellitus with hyperglycemia, unspecified whether joint terminal attack controller insulin use (HCC) R82.81 Pyuria COMPARISON: CT abdomen pelvis 11/06/2021 and 01/02/2015. TECHNIQUE: Multiplanar multisequence MR images of the abdomen were obtained before and after the administration of intravenous contrast. CONTRAST: GADOTERATE MEGLUMINE 0.5 MMOL/ML (376.9 MG/ML) INTRAVENOUS SOLUTION - 20 mL, FINDINGS: Enlarged liver with diffuse fatty infiltration. Large area of nonenhancing focal fatty sparing adjacent to the gallbladder fossa corresponding to area in question seen on recent CT. Stable 2.5 x 1.9 cm T2 hyperintense lesion with peripheral nodular enhancement and progressive filling postcontrast imaging located in segment 6 consistent with a hemangioma. Smaller hemangioma in the medial aspect of segment 6 measuring 1.2 cm. Homogeneously enhancing 7 mm lesion in segment 4A of liver, likely a flash filling hemangioma. Tiny right hepatic lobe cyst. No suspicious liver lesion. Normal gallbladder, pancreas, spleen, adrenal glands, and kidneys. Normal caliber bowel. Nonaneurysmal abdominal aorta. Patent hepatic and mesenteric vessels. No abdominal adenopathy or ascites. No suspicious osseous lesion. IMPRESSION: Hepatomegaly and hepatic steatosis with focal fatty sparing adjacent to the gallbladder fossa. A few liver hemangiomas, largest located in segment 6 stable dating back to 2014. No suspicious liver lesion. Workstation ID: [id number] Dictated by: CHASITY DAVIES on SunNov 08, 2021 11:59:54 AM EDT Transcribed by: CHASITY DAVIES on SunNov 08, 2021 11:59:54 AM EDT Finalized by: CHASITY DAVIES on SunNov 08, 2021 11:59:54 AM EDT Normal [facility] Comment on above: Order Comment: Injur y/Trauma or Illness?:Illness/Other How long have you had these symptoms (acute/chronic)?:Chronic Reason for exam?:Diffuse hepatic steatosis with areas of probable fatty sparing measuring up to 5.4 cm. Enhancing hepatic lesions cannot be excluded on this single phase exam. Type of Exam?:Subsequent/Follow-up Additional signs and symptoms?:Diffuse hepatic steatosis with areas of probable fatty sparing measuring up to 5.4 cm. Enhancing hepatic lesions cannot be excluded on this single phase exam. CT ABDOMEN PELVIS WITH IV CO NTRAST ONLYon 11-06-2021 CT ABDOMEN PELVIS WITH IV CONTRAST ONLY EXAMINATION: CT ABDOMEN PELVIS WITH IV CONTRAST ONLY HISTORY: ORDERING SYSTEM PROVIDED HISTORY: Abdominal pain, acute, nonlocalized, TECHNOLOGIST PROVIDED HISTORY: Illness/Other Reason for exam: PAIN WITH URINATION, URINARY FREQUENCY, X1 WEEK AND WORSENING Encounter Type: Initial Additional signs and symptoms: ORDERING SYSTEM PROVIDED DIAGNOSIS CODES: COMPARISON: 05/01/2015 TECHNIQUE: Standard CT abdomen/pelvis. Dose reduction techniques were achieved by using: automated exposure control and/or adjustment of mA and/or kV according to patient size and/or use of iterative reconstruction technique. CONTRAST: IOPAMIDOL 76 % INTRAVENOUS SOLUTION - 75 mL, FINDINGS: Mediastinum: Unremarkable Lung bases: Unremarkable Liver: Diffuse hepatic steatosis with areas of probable fatty sparing measuring up to 5.4 cm. Biliary tract: Unremarkable Pancreas: Unremarkable Spleen: Unremarkable Adrenals: Unremarkable tract: Unremarkable GI tract and mesentery: Mild colonic diverticulosis. Small bilateral fat containing inguinal hernias. Remainder unremarkable. Vasculature: Minimal atherosclerotic calcification. Lymphatics: Unremarkable Pelvic structures: Enlarged, heterogeneous, and calcified prostate gland. Soft Tissues: Unremarkable Bones: Degenerative changes in the spine and hips. Bilateral L5 pars defects are present. IMPRESSION: Diffuse hepatic steatosis with areas of probable fatty sparing measuring up to 5.4 cm. Enhancing hepatic lesions cannot be excluded on this single phase exam. Suggest multiphase contrast enhanced CT or MR liver. Enlarged, heterogeneous, and calcified prostate gland. Consider correlation with PSA level. Multiple chronic appearing findings as above. Workstation ID: [id number] Dictated by: DEDRICK LUCIA on [place] Nov 06, 2021 10:17:49 AM EDT Transcribed by: DEDRICK LUCIA on [place] Nov 06, 2021 10:17:49 AM EDT Finalized by: DEDRICK LUCIA on SunNov 06, 2021 10:17:49 AM EDT [facility] Comment on above: Order Comment: Injur y/Trauma or Illness?:Illness/Other How long have you had these symptoms (acute/chronic)?:Acute Reason for exam?: PAIN WITH URINATION, URINARY FREQUENCY, X1 WEEK AND WORSENING Type of Exam?:Initial Additional signs and symptoms?: US DUPLEX ARTERIAL ARM LEFTo n 08-06-2020 US DUPLEX ARTERIAL ARM LEFT Patient Info Name: FERNANDO HELTON Age: 49 years : 1970 Gender: Male Exam Date: 08/06/2020 7:46 AM Patient Status: Outpatient Stringer Up Soldering Machine: Eitan Bradford RVT Referring Physician: ANITA ROWLAND ; Indications T88.8XXA - Other specified complications of surgical and medical care, not elsewhere classified, initial encounter Procedure Description 03417 Duplex scan of upper extremity arteries or arterial bypass grafts using B-mode, color and spectral Doppler; unilateral or limited study. Conclusions * Left. * Exam comparison from previous study on 06/04/20 .. 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 Risk Factors Patient has a history of hypertension, hyperlipidemia, CAD, obesity, tobacco use-previous and TIA. . Report Signatures Finalized by DAVID Camacho MD on 08/06/2020 11:40 AM Normal [facility] Ambulatory US DUPLEX ARTERIAL ARM LEFT Patient Info Name: FERNANDO HELTON Age: 49 years : 1970 Gender: Male Exam Date: 08/06/2020 7:46 AM Patient Status: Outpatient Stringer Up Soldering Machine: Eitan Bradford RVT Referring Physician: ANITA ROWLAND ; Indications T88.8XXA - Other specified complications of surgical and medical care, not elsewhere classified, initial encounter Procedure Description 77038 Duplex scan of upper extremity arteries or arterial bypass grafts using B-mode, color and spectral Doppler; unilateral or limited study. Conclusions * Left. * Exam comparison from previous study on 06/04/20 .. 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 Risk Factors Patient has a history of hypertension, hyperlipidemia, CAD, obesity, tobacco use-previous and TIA. . Report Signatures Finalized by Samira Saucedo MD, DAVID on 08/06/2020 11:40 AM Dictated by: SAMIRA SAUCEDO on SunAug 06, 2020 11:40:41 AM EDT Transcribed by: SAMIRA SAUCEDO on SunAug 06, 2020 11:40:41 AM EDT Finalized by: SAMIRA SAUCEDO on SunAug 06, 2020 11:40:41 AM EDT Normal [facility] Ambulatory Ultrasound duplex arterial a rm leftOrdered By: Anita Rowland on 08-06-2020 Patient Info Name: Andrew HELTON Age: 49 years : 1970 Gender: Male Exam Date: 08/06/2020 7:46 AM Patient Status: Outpatient Stringer Up Soldering Machine: Eitan Bradford RVT Referring Physician: ANITA ROWLAND ; Indications T88.8XXA - Other specified complications of surgical and medical care, not elsewhere classified, initial encounter Procedure Description 33360 Duplex scan of upper extremity arteries or arterial bypass grafts using B-mode, color and spectral Doppler; unilateral or limited study. Conclusions * Left. * Exam comparison from previous study on 06/04/20 .. 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 Risk Factors Patient has a history of hypertension, hyperlipidemia, CAD, obesity, tobacco use-previous and TIA. . Report Signatures Finalized by DAVID Camacho MD on 08/06/2020 11:40 AM [facility] Interface, Rad In Heartlab Xper Echopacs - 08/06/2020 11:40 AM EDT Patient Info Name: FERNANDO HELTON Age: 49 years : 1970 Gender: Male Exam Date: 08/06/2020 7:46 AM Patient Status: Outpatient Stringer Up Soldering Machine: Eitan Bradford, RVT Referring Physician: ANITA ROWLAND ; Indications T88.8XXA - Other specified complications of surgical and medical care, not elsewhere classified, initial encounter Procedure Description 36436 Duplex scan of upper extremity arteries or arterial bypass grafts using B-mode, color and spectral Doppler; unilateral or limited study. Conclusions * Left. * Exam comparison from previous study on 06/04/20 .. 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 Risk Factors Patient has a history of hypertension, hyperlipidemia, CAD, obesity, tobacco use-previous and TIA. . Report Signatures Finalized by DAVID Camacho MD on 08/06/2020 11:[address] [facility] DUPLEX ARTERIAL ARM LEFTo n 06-10-2020 US DUPLEX ARTERIAL ARM LEFT Patient Info Name: FERNANDO HELTON Age: 49 years : 1970 Gender: Male Exam Date: 06/10/2020 1:52 PM Patient Status: Outpatient Stringer Up Soldering Machine: Delma He BS, RDMS (AB), RVT Referring Physician: ANITA ROWLAND ; Indications t88.8xxa - Other specified complications of surgical and medical care, not elsewhere classified, initial encounter - complication post cath Procedure Description 67432 Duplex scan of upper extremity arteries or arterial bypass grafts using B-mode, color and spectral Doppler; unilateral or limited study. Conclusions * Patient had heart cath procedure of the left radial artery 06-04-2020. 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 * Duplex exam shows partial compressibility in the mid forearm with trickle flow noted. * The radial and cephalic veins are compressible with normal venous flow. Recommendations * Arterial duplex of the ulnar artery and patent AND complete palmar arch if clinically indicated. Name Value Left PSV Left Prox Radial PSV 17 cm/s Left Mid Radial PSV 76 cm/s Left Distal Radial PSV 0 cm/s Name Value Left EDV Left Prox Radial EDV 0 cm/s Left Mid Radial EDV 10 cm/s Left Distal Radial EDV 0 cm/s Risk Factors Patient has a history of hypertension, hyperlipidemia, tobacco use-previous and CAD. . Notification of Results: Results called to Cassandra Pritchett, and Radha at 06/10/2020 2:10:00 PM, DG. Report Signatures Finalized by Cole Torres MD on 06/10/2020 03:39 PM Normal [facility] Ambulatory US DUPLEX ARTERIAL ARM LEFT Patient Info Name: FERNANDO HELTON Age: 49 years : 1970 Gender: Male Exam Date: 06/10/2020 1:52 PM Patient Status: Outpatient Stringer Up Soldering Machine: Delma He, STEPHEN, RDMS (AB), RVT Referring Physician: ANITA ROWLAND ; Indications t88.8xxa - Other specified complications of surgical and medical care, not elsewhere classified, initial encounter - complication post cath Procedure Description 91540 Duplex scan of upper extremity arteries or arterial bypass grafts using B-mode, color and spectral Doppler; unilateral or limited study. Conclusions * Patient had heart cath procedure of the left radial artery 06-04-2020. 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 * Duplex exam shows partial compressibility in the mid forearm with trickle flow noted. * The radial and cephalic veins are compressible with normal venous flow. Recommendations * Arterial duplex of the ulnar artery and patent AND complete palmar arch if clinically indicated. Name Value Left PSV Left Prox Radial PSV 17 cm/s Left Mid Radial PSV 76 cm/s Left Distal Radial PSV 0 cm/s Name Value Left EDV Left Prox Radial EDV 0 cm/s Left Mid Radial EDV 10 cm/s Left Distal Radial EDV 0 cm/s Risk Factors Patient has a history of hypertension, hyperlipidemia, tobacco use-previous and CAD. . Notification of Results: Results called to Dr. Rowland , Cassandra, and Radha at 06/10/2020 2:10:00 PM, DG. Report Signatures Finalized by Cole Torres MD on 06/10/2020 03:39 PM Dictated by: COLE TORRES on SunJun 10, 2020 3:40:14 PM EDT Transcribed by: COLE TORRES on SunJun 10, 2020 3:40:14 PM EDT Finalized by: COLE TORRES on SunJun 10, 2020 3:40:14 PM EDT Normal [facility] Ambulatory Ultrasound duplex arterial a rm leftOrdered By: Anita Rowland on 06-10-2020 Patient Info Name: Andrew HELTON Age: 49 years : 1970 Gender: Male Exam Date: 06/10/2020 1:52 PM Patient Status: Outpatient Stringer Up Soldering Machine: Delma He, BS, RDMS (AB), RVT Referring Physician: ANITA ROWLAND ; Indications t88.8xxa - Other specified complications of surgical and medical care, not elsewhere classified, initial encounter - complication post cath Procedure Description 44462 Duplex scan of upper extremity arteries or arterial bypass grafts using B-mode, color and spectral Doppler; unilateral or limited study. Conclusions * Patient had heart cath procedure of the left radial artery 06-04-2020. 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 * Duplex exam shows partial compressibility in the mid forearm with trickle flow noted. * The radial and cephalic veins are compressible with normal venous flow. Recommendations * Arterial duplex of the ulnar artery and patent & complete palmar arch if clinically indicated. Name Value Left PSV Left Prox Radial PSV 17 cm/s Left Mid Radial PSV 76 cm/s Left Distal Radial PSV 0 cm/s Name Value Left EDV Left Prox Radial EDV 0 cm/s Left Mid Radial EDV 10 cm/s Left Distal Radial EDV 0 cm/s Risk Factors Patient has a history of hypertension, hyperlipidemia, tobacco use-previous and CAD. . Notification of Results: Results called to Cassandra Pritchett, and Radha at 06/10/2020 2:10:00 PM, DG. Report Signatures Finalized by Cole Torres MD on 06/10/2020 03:39 PM [facility], Rad In Heartlab Xper Echopa - 06/10/2020 3:40 PM EDT Patient Info Name: FERNANDO HELTON Age: 49 years : 1970 Gender: Male Exam Date: 06/10/2020 1:52 PM Patient Status: Outpatient Stringer Up Soldering Machine: Delma He, BS, RDMS (AB), RVT Referring Physician: ANITA ROWLAND ; Indications t88.8xxa - Other specified complications of surgical and medical care, not elsewhere classified, initial encounter - complication post cath Procedure Description 28075 Duplex scan of upper extremity arteries or arterial bypass grafts using B-mode, color and spectral Doppler; unilateral or limited study. Conclusions * Patient had heart cath procedure of the left radial artery 06-04-2020. 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 * Duplex exam shows partial compressibility in the mid forearm with trickle flow noted. * The radial and cephalic veins are compressible with normal venous flow. Recommendations * Arterial duplex of the ulnar artery and patent & complete palmar arch if clinically indicated. Name Value Left PSV Left Prox Radial PSV 17 cm/s Left Mid Radial PSV 76 cm/s Left Distal Radial PSV 0 cm/s Name Value Left EDV Left Prox Radial EDV 0 cm/s Left Mid Radial EDV 10 cm/s Left Distal Radial EDV 0 cm/s Risk Factors Patient has a history of hypertension, hyperlipidemia, tobacco use-previous and CAD. . Notification of Results: Results called to Dr. Rowland , Cassandra, and Radha at 06/10/2020 2:10:00 PM, DG. Report Signatures Finalized by Cole Torres MD on 06/10/2020 03:39 PM [facility] Cardiac catheterizationOrder ed By: Anita Rowland on 06-02-2020 Cardiac Catheterizat ion Operative Report Patient: Fernando Helton CSN Number: @CSN@ Date: 06/02/2020 Referring Provider: @REFPROVFULL@ Procedure: Left Heart Catheterization, Left ventricular angiography, selective coronary angiography Procedural Indications: he was referred for cardiac catheterization. Indications for the procedure include: 49-year-old gentleman who has had previous catheter-based intervention to the anterior circulation complicated by subacute stent thrombosis secondary to medical noncompliance. Ultimately underwent single-vessel bypass grafting using a left internal mammary grafting to the left anterior descending in January 2019 in the setting of moderate LV systolic dysfunction. Patient complains of chronic exercise intolerance and dyspnea with activity ambulatory functional class III. Apparently off tobacco abuse, patient states he has been compliant with his medical regiment. Myocardial perfusion study large anteroapical infarct with distal anterior wall ischemia.. Procedure Details The patient received Versed and Nubain for sedation. We used the left radial area for access. That area was shaved and prepped with ChloraPrep and sterilely draped. 2% Xylocaine was given locally. Using micropuncture technique the left radial artery was entered with a single wall puncture, microwire was advanced, a 5/6 Mexican sheath was advanced and flushed. Through the sheath the patient received a bolus of heparin, nitroglycerin, and verapamil. A long J-wire was advanced to the central circulation, additional IV heparin was given. All catheter exchanges were performed over the long J exchange wire. We used a 5 Mexican JR 5 catheter, 5 Mexican JL 3.0 catheter, 5 Mexican pigtail catheter, and a 5 Mexican BC catheter. Upon completion of the final angiogram the catheter was removed from the circulation over a wire. The radial area was reprepped with Betadine. We placed a TR band for hemostasis which was obtained. There were no immediate complications noted. Impressions and Recommendations: #1. Mild to moderate LV systolic dysfunction with an estimated LV ejection fraction of 42 to 45%. 2. Normal left ventricular end-diastolic pressure. 3. Patent left internal mammary graft to the mid left anterior descending. 4. Single-vessel coronary disease with proximal occlusion of the left anterior descending (plaque involvement right coronary artery and posterior circulation). An ongoing course of guideline directed optimal medical therapy with aggressive risk factor modification appears warranted. Interventions: Findings: Hemodynamics baseline aortic pressure 100/70. Baseline LV pressure 100/16 Left Main no angiographic definable disease LAD proximally occluded. The left anterior descending fills from the left internal mammary graft. Lcx courses in the AV groove. The distal circumflex in the AV groove minimal luminal irregularities. Gives rise to a large bifurcating obtuse marginal branch without angiographic definable disease. RCA serial 20% luminal narrowings in the mid right conduit. Faint collateral through the septum to the anterior circulation with right injections. SVG(s) ELISHA #1. Left internal mammary graft to the mid left anterior descending is patent, the anterior circulation fills from the bypass graft conduit. LV overall left ventricular function estimated at 45%. Large anterolateral wall motion abnormality. The left ventricle appears dilated. No gradient across the aortic valve. No angiographic evidence of mitral valve insufficiency. Interventions/Vessels Guides/Wires Devices Post % Stenosis Closure Device TR band Complications none Estimated Blood Loss: Minimal Complications: None; patient tolerated the procedure well. Disposition: short term care Condition: stable Anita Rowland MD [facility] ECG 12-LEADOrdered By: Zach Rowland on 06-02-2020 Atrial Rate 75 BPM [facility] P [place] 63 degrees [facility] P-R Interval 178 ms [facility] Q-T Interval 406 ms [facility] QRS Duration 94 ms [facility] QTC Calculation (Bezet) 453 ms [facility] R [place] 9 degrees [facility] T [place] 71 degrees [facility] Ventricular Rate 75 BPM [facility] Normal sinus rhythm Low voltage QRS Cannot rule out Anteroseptal infarct , age undetermined Abnormal ECG Confirmed by Maykel Whitney MD ([id number]) on 06/02/2020 8:37:01 AM [facility] Basic metabolic 2000 panelOr dered By: Anita Rowland on 05-28-2020 Anion gap [Moles/Vol] 11 mmol/L 10 - 2 0 mmol/L [facility] Calcium [Mass/Vol] 8.8 mg/dL 8.4 - 10. 2 mg/dL [facility] Chloride [Moles/Vol] 105 mmol/L 98 - 10 8 mmol/L [facility] Creatinine [Mass/Vol] 1.12 mg/dL 0.50 - 1.30 [facility] GFR/1.73 sq M.predicted CKD-EPI (S/P/Bld) [Vol rate/Area] 77 >=60 mL/min/1.7 3 m2 [facility] Glucose [Mass/Vol] 108 mg/dL High 65 - 99 mg/dL [facility] HCO3 [Moles/Vol] 27 mmol/L 21 - 32 mmol/L [facility] Interpretation and review of laboratory results Abnormal [facility] Potassium [Moles/Vol] 4.3 mmol/L 3.5 - 5.1 mmol/L [facility] Sodium [Moles/Vol] 139 mmol/L 135 - 145 mmol/L [facility] Urea nitrogen [Mass/Vol] 19 mg/dL 8 - 25 mg/dL [facility] Urea nitrogen/Creatinine [Mass ratio] 17.0 mg/mg [facility] [facility] The eGFR should be u sed for monitoring renal function only and not for medication dosing. [facility] MYOCARDIAL PERFUSION MULT I SPECTOrdered By: Anita Rowland on 05-28-2020 LV Stress Diastolic Volume 135 ml [facility] LV Stress Systolic Volume 67 ml [facility] Stress Nuc Stress EF 50 % [facility] Patient Info Name: Andrew HELTON Age: 49 years : 1970 Gender: Male Ht: 168 cm Wt: 118 kg BSA: 2.41 m2 HR: 80 bpm BP: 123 / 79 mmHg Heart Rhythm: Sinus Rhythm Exam Date: 05/28/2020 8:00 AM Patient Status: Recurring patient Any Known Allergies: See Chart Hot Stone Setter: Gilmer Jones RT(N), NCT Exam Type: NM MYOCARDIAL PERFUSION MULTI SPECT Study Info Indications R94.31 - Abnormal electrocardiogram ECG EKG - NSVT Nuclear Physician: Emma Bueno MD, RPVI Referring Physician: DR. PATEL; [id number] Primary Nurse: Chula Arredondo RN Supervising Stress Physician: Magda Durán MD BMI: 41.79 kg/m2 Summary 1. Abnormal pharmacologic stress nuclear perfusion study with large severe anterior, septal , apical infarct and small mild distal anterior ischemia.Related wall motion abnormalities. 2. Non-diagnostic stress electrocardiogram secondary to resting electrocardiographic abnormalities. 3. A large sized, mild to absent of uptake perfusion defect in the inferior, anterior, anteroseptal, lateral, and apex cui is minimally reversible. 4. The apex, septal wall, anteroseptal wall, apical anterior, and mid inferoseptal are hypokinetic at rest. 5. Resting left ventricular ejection fraction is mildly reduced , 49 %. History/Risk Factors Hypertension: Yes Dyslipidemia: Yes Peripheral Arterial Disease (PAD): Yes Myocardial Infarction (PA): Yes Coronary Artery Disease (CAD) Yes Congestive Heart Failure (CHF): Hx CHF Diabetes Mellitus: Yes COPD: On Meds Tobacco Use: Former Cerebrovascular Disease: TIA Family History: Coronary Artery Disease History/Risk Factors Patient has prior CABG on 01/13/2019. Asthma: NO Caffeine in Last 24 Hours: No Seizure Disorder: No Prior Interventions Pacemaker: No PCI: Yes CABG: Yes ICD: No Date of PCI: 09/24/2014 Date of CAB01/13/2019 Stress ECG Details Protocol: LEXISCAN Rest HR: 80 bpm Peak HR: 98 bpm Rest Sys BP: 123 mmHg Peak Sys BP: 142 mmHg Max Pred HR: 172 bpm % Max Pred HR: 57 % Target HR: 146 bpm Max RPP: 13,916 bpm*mmHg Target HR Summary: Normal HR response BP Response: Normal blood pressure response Termination Reason: At the end of protocol Cardiac Symptoms: None Total Time: 5 min : 0 sec Rest Marte BP: 79 mmHg Peak Marte BP: 80 mmHg Total Dose: 0.4 mg Resting ECG Normal sinus rhythm. Anteroseptal myocardial infarction. Resting ST/T wave changes. Stress ECG Non-diagnostic ECG response due to resting abnormalities. Arrhythmias No arrhythmias were observed during the examination. Exercise Tolerance Unable to exercise due to chronic obstructive asthma. Stress Summary Non-diagnostic stress electrocardiogram secondary to resting electrocardiographic abnormalities. Radiopharmaceutical: Tc-99m Tetrofosmin Administration Site: IV - right antecubital Administered By: Gilmer Jones RT(N), NCT Camera Used: [employer] D-SPECT Radiopharmaceutical: Tc-99m Tetrofosmin Administration Site: IV - right antecubital Administered By: Gilmer Jones RT(N), NCT Camera Used: [employer] D-SPECT Image Protocol Protocol: Stress/Rest 1 Day Rest Radiopharmaceutical Dose: 25.0 mCi Imaging Date & Time: 05/28/2020 9:02 AM Patient Position: supine Stress Radiopharmaceutical Dose: 8.0 mCi Imaging Date & Time: 05/28/2020 8:15 AM Patient Position: upright and supine Total Radiation Dose: 9 mSv Injection Date & Time: 05/28/2020 8:45 AM Injection Date & Time: 05/28/2020 8:00 AM Procedure(s): Gated SPECT images acquired upright and supine post Tetrofosmin injection at peak stress. Gated SPECT images acquired supine post Tetrofosmin injection at rest. [facility] [employer]/QExit41 application was utilized for processing and interpretation. SPECT Results Perfusion Findings A large sized, mild to absent of uptake perfusion defect in the inferior, anterior, anteroseptal, lateral, and apex cui is minimally reversible. Summed Difference Score: 2 Summed Stress Score: 16 Summed Rest Score: 14 Perfusion Quantitative Results Stress Extent Global Stress Extent: 37 % Rest Extent Global Rest Extent: 34 % Ischemia Extent Global Ischemia Extent: 3 % Functional Results Name Value Normal Stress Stress LV Ejection Fraction 50 % 55-70 Stress LV End Diastolic Volume Index 60.30 ml/m2 Stress LV End Systolic Volume Index 32.10 ml/m2 Nuclear Stress Myocardial Mass 152.00 g S (more content not included)... [facility] Interface, Rad In [facility] Xper Echopacs - 05/28/2020 2:37 PM EDT Patient Info Name: FERNANDO HELTON Age: 49 years : 1970 Gender: Male Ht: 168 cm Wt: 118 kg BSA: 2.41 m2 HR: 80 bpm BP: 123 / 79 mmHg Heart Rhythm: Sinus Rhythm Exam Date: 05/28/2020 8:00 AM Patient Status: Recurring patient Any Known Allergies: See Chart Hot Stone Setter: Gilmer Jones RT(N), NCT Exam Type: NM MYOCARDIAL PERFUSION MULTI SPECT Study Info Indications R94.31 - Abnormal electrocardiogram ECG EKG - NSVT Nuclear Physician: Emma Bueno MD, RPVI Referring Physician: DR. PATEL; [id number] Primary Nurse: Chula Arredondo RN Supervising Stress Physician: Magda Durán MD BMI: 41.79 kg/m2 Summary 1. Abnormal pharmacologic stress nuclear perfusion study with large severe anterior, septal , apical infarct and small mild distal anterior ischemia.Related wall motion abnormalities. 2. Non-diagnostic stress electrocardiogram secondary to resting electrocardiographic abnormalities. 3. A large sized, mild to absent of uptake perfusion defect in the inferior, anterior, anteroseptal, lateral, and apex cui is minimally reversible. 4. The apex, septal wall, anteroseptal wall, apical anterior, and mid inferoseptal are hypokinetic at rest. 5. Resting left ventricular ejection fraction is mildly reduced , 49 %. History/Risk Factors Hypertension: Yes Dyslipidemia: Yes Peripheral Arterial Disease (PAD): Yes Myocardial Infarction (PA): Yes Coronary Artery Disease (CAD) Yes Congestive Heart Failure (CHF): Hx CHF Diabetes Mellitus: Yes COPD: On Meds Tobacco Use: Former Cerebrovascular Disease: TIA Family History: Coronary Artery Disease History/Risk Factors Patient has prior CABG on 01/13/2019. Asthma: NO Caffeine in Last 24 Hours: No Seizure Disorder: No Prior Interventions Pacemaker: No PCI: Yes CABG: Yes ICD: No Date of PCI: 09/24/2014 Date of CAB01/13/2019 Stress ECG Details Protocol: LEXISCAN Rest HR: 80 bpm Peak HR: 98 bpm Rest Sys BP: 123 mmHg Peak Sys BP: 142 mmHg Max Pred HR: 172 bpm % Max Pred HR: 57 % Target HR: 146 bpm Max RPP: 13,916 bpm*mmHg Target HR Summary: Normal HR response BP Response: Normal blood pressure response Termination Reason: At the end of protocol Cardiac Symptoms: None Total Time: 5 min : 0 sec Rest Marte BP: 79 mmHg Peak Marte BP: 80 mmHg Total Dose: 0.4 mg Resting ECG Normal sinus rhythm. Anteroseptal myocardial infarction. Resting ST/T wave changes. Stress ECG Non-diagnostic ECG response due to resting abnormalities. Arrhythmias No arrhythmias were observed during the examination. Exercise Tolerance Unable to exercise due to chronic obstructive asthma. Stress Summary Non-diagnostic stress electrocardiogram secondary to resting electrocardiographic abnormalities. Radiopharmaceutical: Tc-99m Tetrofosmin Administration Site: IV - right antecubital Administered By: Gilmer Jones RT(N), NCT Camera Used: [employer] D-SPECT Radiopharmaceutical: Tc-99m Tetrofosmin Administration Site: IV - right antecubital Administered By: Gilmer Jones RT(N), NCT Camera Used: [employer] D-SPECT Image Protocol Protocol: Stress/Rest 1 Day Rest Radiopharmaceutical Dose: 25.0 mCi Imaging Date & Time: 05/28/2020 9:02 AM Patient Position: supine Stress Radiopharmaceutical Dose: 8.0 mCi Imaging Date & Time: 05/28/2020 8:15 AM Patient Position: upright and supine Total Radiation Dose: 9 mSv Injection Date & Time: 05/28/2020 8:45 AM Injection Date & Time: 05/28/2020 8:00 AM Procedure(s): Gated SPECT images acquired upright and supine post Tetrofosmin injection at peak stress. Gated SPECT images acquired supine post Tetrofosmin injection at rest. [facility] [employer]/QPS application was utilized for processing and interpretation. SPECT Results Perfusion Findings A large sized, mild to absent of uptake perfusion defect in the inferior, anterior, anteroseptal, lateral, and apex cui is minimally reversible. Summed Difference Score: 2 Summed Stress Score: 16 Summed Rest Score: 14 Perfusion Quantitative Results Stress Extent Global Stress Extent: 37 % Rest Extent Global Rest Extent: 34 % Ischemia Extent Global Ischemia Extent: 3 % Functional Results Name Value Normal Stress Stress LV Ejection Fraction 50 % 55-70 Stress LV End Diastolic Volume Index 60.30 ml/m2 Stress LV End Systolic Volume Index 32.10 ml/m2 Nuclear Stress Myocardial Mass 152.00 g Stress LV End Diastolic Volume 135.00 ml Stress LV End Systolic Volume 67.00 ml Transient Ischemic Dilata (more content not included)... [facility] NM MYOCARDIAL PERFUSION MULT I SPECTon 05-28-2020 NM MYOCARDIAL PERFUSION MULTI SPECT Patient Info Name: FERNANDO HELTON Age: 49 years : 1970 Gender: Male Ht: 168 cm Wt: 118 kg BSA: 2.41 m2 HR: 80 bpm BP: 123 / 79 mmHg Heart Rhythm: Sinus Rhythm Exam Date: 05/28/2020 8:00 AM Patient Status: Recurring patient Any Known Allergies: See Chart Hot Stone Setter: Gilmer Jones RT(N), NCT Exam Type: NM MYOCARDIAL PERFUSION MULTI SPECT Study Info Indications R94.31 - Abnormal electrocardiogram ECG EKG - NSVT Nuclear Physician: Emma Bueno MD, RPVI Referring Physician: DR. PATEL; [id number] Primary Nurse: Chula Arredondo RN Supervising Stress Physician: Magda Durán MD BMI: 41.79 kg/m2 Summary 1. Abnormal pharmacologic stress nuclear perfusion study with large severe anterior, septal , apical infarct and small mild distal anterior ischemia.Related wall motion abnormalities. 2. Non-diagnostic stress electrocardiogram secondary to resting electrocardiographic abnormalities. 3. A large sized, mild to absent of uptake perfusion defect in the inferior, anterior, anteroseptal, lateral, and apex cui is minimally reversible. 4. The apex, septal wall, anteroseptal wall, apical anterior, and mid inferoseptal are hypokinetic at rest. 5. Resting left ventricular ejection fraction is mildly reduced , 49 %. History/Risk Factors Hypertension: Yes Dyslipidemia: Yes Peripheral Arterial Disease (PAD): Yes Myocardial Infarction (PA): Yes Coronary Artery Disease (CAD) Yes Congestive Heart Failure (CHF): Hx CHF Diabetes Mellitus: Yes COPD: On Meds Tobacco Use: Former Cerebrovascular Disease: TIA Family History: Coronary Artery Disease History/Risk Factors Patient has prior CABG on 01/13/2019. Asthma: NO Caffeine in Last 24 Hours: No Seizure Disorder: No Prior Interventions Pacemaker: No PCI: Yes CABG: Yes ICD: No Date of PCI: 09/24/2014 Date of CAB01/13/2019 Stress ECG Details Protocol: LEXISCAN Rest HR: 80 bpm Peak HR: 98 bpm Rest Sys BP: 123 mmHg Peak Sys BP: 142 mmHg Max Pred HR: 172 bpm % Max Pred HR: 57 % Target HR: 146 bpm Max RPP: 13,916 bpm*mmHg Target HR Summary: Normal HR response BP Response: Normal blood pressure response Termination Reason: At the end of protocol Cardiac Symptoms: None Total Time: 5 min : 0 sec Rest Marte BP: 79 mmHg Peak Marte BP: 80 mmHg Total Dose: 0.4 mg Resting ECG Normal sinus rhythm. Anteroseptal myocardial infarction. Resting ST/T wave changes. Stress ECG Non-diagnostic ECG response due to resting abnormalities. Arrhythmias No arrhythmias were observed during the examination. Exercise Tolerance Unable to exercise due to chronic obstructive asthma. Stress Summary Non-diagnostic stress electrocardiogram secondary to resting electrocardiographic abnormalities. Radiopharmaceutical: Tc-99m Tetrofosmin Administration Site: IV - right antecubital Administered By: Gilmer Jones, (N), NCT Camera Used: [employer] D-SPECT Radiopharmaceutical: Tc-99m Tetrofosmin Administration Site: IV - right antecubital Administered By: Gilmer Jones RT(N), NCT Camera Used: [employer] D-SPECT Image Protocol Protocol: Stress/Rest 1 Day Rest Radiopharmaceutical Dose: 25.0 mCi Imaging Date AND Time: 05/28/2020 9:02 AM Patient Position: supine Stress Radiopharmaceutical Dose: 8.0 mCi Imaging Date AND Time: 05/28/2020 8:15 AM Patient Position: upright and supine Total Radiation Dose: 9 mSv Injection Date AND Time: 05/28/2020 8:45 AM Injection Date AND Time: 05/28/2020 8:00 AM Procedure(s): Gated SPECT images acquired upright and supine post Tetrofosmin injection at peak stress. Gated SPECT images acquired supine post Tetrofosmin injection at rest. [facility] [employer] application was utilized for processing and interpretation. SPECT Results Perfusion Findings A large sized, mild to absent of uptake perfusion defect in the inferior, anterior, anteroseptal, lateral, and apex cui is minimally reversible. Summed Difference Score: 2 Summed Stress Score: 16 Summed Rest Score: 14 Perfusion Quantitative Results Stress Extent Global Stress Extent: 37 % Rest Extent Global Rest Extent: 34 % Ischemia Extent Global Ischemia Extent: 3 % Functional Results Name Value Normal Stress Stress LV Ejection Fraction 50 % 55-70 Stress LV End Diastolic Volume Index 60.30 ml/m2 Stress LV End Systolic Volume Index 32.10 ml/m2 Nuclear Stress Myocardial Mass 152.00 g Stress LV End Diastolic Volume 135.00 ml Stress LV End Systolic Volume 67.00 ml Transient Ischemic Dilatation 1.05 Functional Results (more content not included)... Normal [facility] Comment on above: Order Comment: Injur y/Trauma or Illness?:Illness/Other How long have you had these symptoms (acute/chronic)?:Unknown Reason for exam?:nsvt, abn ekg Type of Exam?:Unknown Additional signs and symptoms?:nsvt, abn ekg COVID-19, MOLECULARon 2020 SARS-COV-2 RNA (KELL) Not Detected Normal Not Detected [facility] Comment on above: Order Comment: : COV ID-19 Lab Test Only (OP in UTM) Result Comment: This test was performed under the FDA's Emergency Use Authorization (EUA). Testing was performed using the Alexi SARS-CoV-2 RT-PCR assay on the Kell Alexi 6800 System. This test has not been approved for use in asymptomatic patients and its performance in this patient population has not been evaluated. Negative results do not rule out the presence of SARS-CoV-2/COVID-19. Fact sheets for this EUA can be found at the following links: For Healthcare Providers: https://www.fda.gov/media/218312/download For Patients: https://www.fda.gov/media/704691/download Performed By: #### L [id number] #### [facility] [address] [place] [id number] Roby Santos M.D. [id number] MRSA SCREENon 04-26-2020 MRSA DNA MEGHANN+probe Ql (Unsp spec) Negative Normal NEGATIVE [facility] Comment on above: Performed By: #### M RSAST #### Testing performed at [address] [address] Result Comment: TEST ING PERFORMED BY PCR B TYPE NATRIURETIC PEPTIDEon 04-25-2020 Natriuretic peptide B (Bld) [Mass/Vol] 52 pg/mL Normal [facility] Comment on above: Performed By: #### B SOUND TECHNICIAN SUPERVISOR #### Testing performed at [address] [address] CBCon 04-25-2020 ABSOLUTE BAS 0.1 10*3/uL Normal 0.0-0.2 [facility] Comment on above: Performed By: #### A CBC, PT, LIVR, CHEM7F #### Testing performed at [address] [address] ABSOLUTE EOS 0.10 10*3/uL Normal 0.0-0.7 [facility] Comment on above: Performed By: #### A CBC, PT, LIVR, CHEM7F #### Testing performed at [address] [address] ABSOLUTE NEUTROPHIL COUNT 11.3 10*3/uL High 1.4-6.5 [facility] Comment on above: Performed By: #### A CBC, PT, LIVR, CHEM7F #### Testing performed at [address] [address] Basophils/100 WBC (Bld) 0.6 % Normal 0.0-2.0 [facility] Comment on above: Performed By: #### A CBC, PT, LIVR, CHEM7F #### Testing performed at [address] [address] DTYPE AUTO DIFF Normal [facility] Comment on above: Performed By: #### A CBC, PT, LIVR, CHEM7F #### Testing performed at [address] [address] Eosinophils/100 WBC (Bld) 0.4 % Normal 0.0-11.0 [facility] Comment on above: Performed By: #### A CBC, PT, LIVR, CHEM7F #### Testing performed at [address] [address] Lymphocytes (Bld) [#/Vol] 2.80 10*3/uL Normal 1.2-3.4 [facility] Comment on above: Performed By: #### A CBC, PT, LIVR, CHEM7F #### Testing performed at [address] [address] Lymphocytes/100 WBC (Bld) 18.5 % Low 20.0-55.0 [facility] Comment on above: Performed By: #### A CBC, PT, LIVR, CHEM7F #### Testing performed at [address] [address] Monocytes (Bld) [#/Vol] 0.9 10*3/uL High 0.0-0.7 [facility] Comment on above: Performed By: #### A CBC, PT, LIVR, CHEM7F #### Testing performed at [address] [address] Monocytes/100 WBC (Bld) 5.9 % Normal 0.0-10.0 [facility] Comment on above: Performed By: #### A CBC, PT, LIVR, CHEM7F #### Testing performed at [address] [address] Neutrophils/100 WBC (Bld) 74.6 % Normal 37.0-75.0 [facility] Comment on above: Performed By: #### A CBC, PT, LIVR, CHEM7F #### Testing performed at [address] [place] [address] Erythrocyte distribution width (RBC) [Ratio] 15.5 % High 11.5-14.5 [facility] Comment on above: Performed By: #### A CBC, PT, LIVR, CHEM7F #### Testing performed at [address] [place] [address] Hematocrit (Bld) [Volume fraction] 44.6 % Normal 42.0-52.0 [facility] Comment on above: Performed By: #### A CBC, PT, LIVR, CHEM7F #### Testing performed at [address] [place] [address] Hemoglobin (Bld) [Mass/Vol] 14.7 g/dL Normal 14.0-18.0 [facility] Comment on above: Performed By: #### A CBC, PT, LIVR, CHEM7F #### Testing performed at [address] [address] MCH (RBC) [Entitic mass] 27.1 pg Normal 26.0-35.0 [facility] Comment on above: Performed By: #### A CBC, PT, LIVR, CHEM7F #### Testing performed at [address] [address] MCHC (RBC) [Mass/Vol] 32.9 g/dL Normal 27.0-37.0 [facility] Comment on above: Performed By: #### A CBC, PT, LIVR, CHEM7F #### Testing performed at [address] [address] MCV (RBC) [Entitic vol] 82.1 fL Normal 80.0-100.0 [facility] Comment on above: Performed By: #### A CBC, PT, LIVR, CHEM7F #### Testing performed at [address] [address] Platelet mean volume (Bld) [Entitic vol] 8.5 fL Normal 7.4-11.0 [facility] Comment on above: Performed By: #### A CBC, PT, LIVR, CHEM7F #### Testing performed at [address] [address] Platelets (Bld) [#/Vol] 308 10*3/uL Normal 130. 0-400. 0 [facility] Comment on above: Performed By: #### A CBC, PT, LIVR, CHEM7F #### Testing performed at [address] [address] RBC (Bld) [#/Vol] 5.43 10*6/uL Normal 4.0-6.1 [facility] Comment on above: Performed By: #### A CBC, PT, LIVR, CHEM7F #### Testing performed at [address] [address] WBC (Bld) [#/Vol] 15.2 10*3/uL High 3.6-11.0 [facility] Comment on above: Performed By: #### A CBC, PT, LIVR, CHEM7F #### Testing performed at [address] [address] CHEM 7 FASTINGon 04-25-2020 Creatinine [Mass/Vol] 1.02 mg/dL Normal 0.66-1.25 [facility] Comment on above: Performed By: #### A CBC, PT, LIVR, CHEM7F #### Testing performed at [address] [address] EST. GFR, >60 Normal [facility] Comment on above: Performed By: #### A CBC, PT, LIVR, CHEM7F #### Testing performed at [address] [address] EST. GFR,Non >60 Normal [facility] Comment on above: Performed By: #### A CBC, PT, LIVR, CHEM7F #### Testing performed at [address] [address] GFR/1.73 sq M predicted among non-blacks MDRD (S/P/Bld) [Vol rate/Area] Average GFR for 40-49 years old = 99. Normal [facility] Comment on above: Result Comment: Freelance Designer sofiya Kidney disease, GFR = <60. Kidney failure, GFR = <15. The GFR estimate is not adjusted for extreme body surface area or acute process, nor has it been validated for women or ethnic groups other than and . Performed By: #### A CBC, PT, LIVR, CHEM7F #### Testing performed at [address] [address] Urea nitrogen [Mass/Vol] 22 mg/dL High 7-20 [facility] Comment on above: Performed By: #### A CBC, PT, LIVR, CHEM7F #### Testing performed at [address] [address] Chloride [Moles/Vol] 106 mmol/L Normal 98-107 [facility] Comment on above: Performed By: #### A CBC, PT, LIVR, CHEM7F #### Testing performed at [address] [address] CO2 [Moles/Vol] 22 mmol/L Normal 22-30 [facility] Comment on above: Performed By: #### A CBC, PT, LIVR, CHEM7F #### Testing performed at [address] [address] Glucose [Mass/Vol] 131 mg/dL High 70-100 [facility] Comment on above: Result Comment: NORMAL <100 mg/dL PREDIABETES 101-126 mg/dL DIABETES 126 mg/dL or higher Performed By: #### A CBC, PT, LIVR, CHEM7F #### Testing performed at [address] [address] Potassium [Moles/Vol] 4.4 mmol/L Normal 3.5-5.1 [facility] Comment on above: Performed By: #### A CBC, PT, LIVR, CHEM7F #### Testing performed at [address] [address] Sodium [Moles/Vol] 137 mmol/L Normal 136-145 [facility] Comment on above: Performed By: #### A CBC, PT, LIVR, CHEM7F #### Testing performed at [address] [address] LIVER PANELon 04-25-2020 Albumin [Mass/Vol] 4.0 g/dL Normal 3.5-5.0 [facility] Comment on above: Performed By: #### A CBC, PT, LIVR, CHEM7F #### Testing performed at [address] [address] ALP [Catalytic activity/Vol] 77 U/L Normal 38-126 [facility] Comment on above: Performed By: #### A CBC, PT, LIVR, CHEM7F #### Testing performed at [address] [place] [address] ALT [Catalytic activity/Vol] 40 U/L Normal 17-63 [facility] Comment on above: Performed By: #### A CBC, PT, LIVR, CHEM7F #### Testing performed at [address] [place] [address] AST [Catalytic activity/Vol] 23 U/L Normal 15-41 [facility] Comment on above: Performed By: #### A CBC, PT, LIVR, CHEM7F #### Testing performed at [address] [address] Bilirubin [Mass/Vol] 0.6 mg/dL Normal 0.2-1.2 [facility] Comment on above: Performed By: #### A CBC, PT, LIVR, CHEM7F #### Testing performed at [place] [id number] Bilirubin.direct [Mass/Vol] 0.1 mg/dL Normal 0.0-0.2 [facility] Comment on above: Performed By: #### A CBC, PT, LIVR, CHEM7F #### [place] [address] Protein [Mass/Vol] 7.1 g/dL Normal 6.3-8.2 [facility] Comment on above: Performed By: #### A CBC, PT, LIVR, CHEM7F #### [place] [address] NOVEL CORONAVIRUSon 20 21 NARRATIVE This test was perfor med using isothermal MEGHANN and has been approved as Emergency Use Authorization (EUA) for the qualitative detection [id number] nucleic acid. Normal [facility] Comment on above: Performed By: #### C OVID #### [place] [address] SARS-COV-2 NOT DETECTED Normal NOT DETECTED [facility] Comment on above: Result Comment: Nega tive results do not preclude SARS-CoV-2 infection and should not be used as the sole basis for treatment or other patient management decisions. Optimum specimen types and timing for peak viral levels during infections caused by SARS-CoV-2 has not been determined. The possibility of a false negative result should especially be considered if the patient's recent exposures or clinical presentation suggest that SARS-CoV-2 infection is probable, and diagnostic tests for other causes of illness (e.g., other respiratory illness) are negative. Collection of a new specimen and re-testing may be necessary if the patient is critically ill or clinically deteriorating. Performed By: #### C OVID #### [place] [address] PROTIMEon 04-25-2020 INR Coag (PPP) [Relative time] 0.97 {INR} Normal 0.88-1.12 [facility] Comment on above: Result Comment: 2.0-3.0 THERAPEUTIC RANGE 2.5-3.5 MECHANICAL VALVE RANGE Performed By: #### A CBC, PT, LIVR, [id number] #### Testing performed at [address] [address] PT Coag (PPP) [Time] 12.7 s Normal 11.8-14.4 [facility] Comment on above: Performed By: #### A CBC, PT, LIVR, [id number] #### Testing performed at [address] [address] RAPID FLU Aon 04-25-2020 INFLUENZA A Negative Normal NEGATIVE [facility] Comment on above: Performed By: #### R FLUAB #### Testing performed at [address] [address] INFLUENZA B Negative Normal NEGATIVE [facility] Comment on above: Result Comment: TEST ING PERFORMED BY MEGHANN Performed By: #### R FLUAB #### Testing performed at [address] [address] TROPONIN I, HIGH SENSITIVITY on 04-25-2020 TROPONIN I, HIGH SENSITIVITY 7 pg/mL Normal 0-20 [facility] Comment on above: Result Comment: Indeterminant: >12 to 100 pg/mL female >20 to 100 pg/mL male Indicative of myocardial injury. Serial sampling is recommended, a change of greater than or equal to 20 pg/mL is indicative of acute coronary syndrome. Performed By: #### R FLUAB #### Testing performed at [address] [address] XR CHEST AP PORTABLEon 04-25 XR CHEST AP PORTABLE EXAM: XR CHEST AP PORTABLE HISTORY: sob COMPARISON: Portable chest from 01/08/2018. TECHNIQUE: Portable chest was done at 5:41 PM. FINDINGS: Sternal wires indicate prior surgery. Trachea, mediastinum, heart size, diaphragm and bony elements are intact. No infiltrate or nodule or effusion or pneumothorax is noted. IMPRESSION: Nonacute portable chest. Normal [facility] XR CHEST PA AND LATERALon XR CHEST PA AND LATERAL EXAM: XR CHEST P A AND LATERAL 12/31/2019 2:56 PM EST HISTORY: sob COMPARISON: 01/08/2018 TECHNIQUE: PA and lateral views FINDINGS: Lungs are clear. The cardiomediastinal configuration is within normal limits. No acute bony abnormalities. Median sternotomy wires are visualized. IMPRESSION: No acute cardiopulmonary abnormalities. Normal [facility] COVID-19, MOLECULARon 2019 SARS-COV-2 RNA (KELL) Not Detected Normal Not Detected [facility] Comment on above: Result Comment: This test was performed under the FDA's Emergency Use Authorization (EUA). Testing was performed using the Alexi SARS-CoV-2 assay on the Kell Alexi 6800 System. This test has not been approved for use in asymptomatic patients and its performance in this patient population has not been evaluated. Negative results do not rule out the presence of SARS-CoV-2/COVID-19. Fact sheets for this EUA can be found at the following links: For Healthcare Providers: https://www.fda.gov/media/038544/download For Patients: https://www.fda.gov/media/294723/download Performed By: #### L [id number] #### [facility] [address] [place] [address] Roby Santos M.D. [id number] CBC WITH AUTO DIFFERENTIALon 10-16-2019 Basophils (Bld) [#/Vol] 0.10 10*3/uL [facility] Basophils/100 WBC (Bld) 0.6 % [facility] Eosinophils (Bld) [#/Vol] 0.21 10*3/uL [facility] Eosinophils/100 WBC (Bld) 1.3 % [facility] Erythrocyte distribution width (RBC) [Entitic vol] 15.3 % High 11.6 - 14.8 % [facility] Hematocrit (Bld) [Volume fraction] 47.6 % 41 - 53 % [facility] Hemoglobin (Bld) [Mass/Vol] 15.2 g/dL 13.5 - 17.5 g/dL [facility] Immature granulocytes (Bld) [#/Vol] 0.11 10*3/uL [facility] Immature granulocytes/100 WBC (Bld) 0.70 % [facility] Comment on above: The IG parameter is the percentage of metamyelocytes, myelocytes and promyelocytes. An immature granulocyte count (IG) of 1% or more suggests the possibility of infection, an IG count of 3% is very likely related to an infection. Interpretation and review of laboratory results Abnormal [facility] Lymphocytes (Bld) [#/Vol] 5.08 10*3/uL High [facility] Lymphocytes/100 WBC (Bld) 32.5 % [facility] MCH (RBC) [Entitic mass] 27.4 pg 26 - 34 pg [facility] MCHC (RBC) [Mass/Vol] 31.9 g/dL 31 - 3 7 g/dL [facility] MCV (RBC) [Entitic vol] 85.9 fL 80 - 100 fL [facility] Monocytes (Bld) [#/Vol] 1.39 10*3/uL High [facility] Monocytes/100 WBC (Bld) 8.9 % [facility] Neutrophils (Bld) [#/Vol] 8.72 10*3/uL High [facility] Neutrophils/100 WBC (Bld) 56.0 % [facility] Comment on above: Peripheral smear rev iewed manually Nucleated RBC (Bld) [#/Vol] 0.00 10*3/uL [facility] Nucleated RBC/100 WBC (Bld) [Ratio] 0.0 % [facility] Platelet mean volume (Bld) [Entitic vol] 10.3 fL 9.4 - 12.4 fL [facility] Platelets (Bld) [#/Vol] 306 10*3/uL [facility] RBC (Bld) [#/Vol] 5.54 10*6/uL [facility] ealth WBC (Bld) [#/Vol] 15.61 10*3/uL [facility] Comprehensive Metabolic Pane sangeetha 10-16-2019 Albumin [Mass/Vol] 3.2 g/dL 3.2 - 5.2 g/dL [facility] ALP [Catalytic activity/Vol] 87 U/L 40 - 150 U/L [facility] ALT [Catalytic activity/Vol] 46 U/L 14 - 65 U/L [facility] Anion gap [Moles/Vol] 10 mmol/L 10 - 2 0 mmol/L [facility] AST [Catalytic activity/Vol] 16 U/L 0 - 45 U/L [facility] Bilirubin [Mass/Vol] 0.4 mg/dL 0 - 1.3 mg/dL [facility] Calcium [Mass/Vol] 8.7 mg/dL 8.4 - 10. 2 mg/dL [facility] Chloride [Moles/Vol] 108 mmol/L 98 - 10 8 mmol/L [facility] Creatinine [Mass/Vol] 1.09 mg/dL 0.50 - 1.30 [facility] GFR/1.73 sq M predicted among non-blacks MDRD (S/P/Bld) [Vol rate/Area] The eGFR should be used for monitoring renal function only and not for medication dosing. [facility] GFR/1.73 sq M.predicted CKD-EPI (S/P/Bld) [Vol rate/Area] 80 >=60 mL/min/1.7 3 m2 [facility] Glucose [Mass/Vol] 117 mg/dL High 65 - 99 mg/dL [facility] HCO3 [Moles/Vol] 26 mmol/L 21 - 32 mmol/L [facility] Interpretation and review of laboratory results Abnormal [facility] Potassium [Moles/Vol] 3.7 mmol/L 3.5 - 5.1 mmol/L [facility] Protein [Mass/Vol] 6.5 g/dL 6 - 8 g/dL [facility] alth Sodium [Moles/Vol] 140 mmol/L 135 - 145 mmol/L [facility] Urea nitrogen [Mass/Vol] 28 mg/dL High 8 - 25 mg/dL [facility] Urea nitrogen/Creatinine [Mass ratio] 25.7 mg/mg High [facility] ECG 12-LEADon 10-16-2019 Atrial Rate 76 BPM [facility] P [place] 74 degrees [facility] P-R Interval 174 ms [facility] Q-T Interval 424 ms [facility] QRS Duration 90 ms [facility] QTC Calculation (Bezet) 477 ms O [facility] R [place] 11 degrees [facility] T [place] 62 degrees [facility] Ventricular Rate 76 BPM [facility] Normal sinus rhythm Anteroseptal infarct , age undetermined Abnormal ECG Confirmed by DEMETRIO WARREN, EMMA ([id number]) on 10/16/2019 8:22:19 AM [facility] ECHOCARDIOGRAM 2D COMPLETEon 10-16-2019 Aortic valve area 3.07053 cm [facility] AV mean gradient 2.98966 mmHg [facility] th AV peak gradient 3.6017 mmHg [facility] EF 38.6259 % [facility] Interface, Rad In [facility] Xper Echopacs - 10/16/2019 11:49 AM EDT Patient Info Name: FERNANDO HELTON Age: 49 years : 1970 Gender: Male Ht: 168 cm Wt: 118 kg BSA: 2.40 m2 HR: 72 bpm BP: 136 / 94 mmHg Heart Rhythm: Sinus Rhythm Technical Quality: Fair Exam Date: 10/16/2019 9:53 AM Patient Status: Outpatient Yard Coordinator: Wally Longoria RCDS Exam Type: ECHOCARDIOGRAM COMPLETE W CONTRAST Study Info Indications - - Syncope Referring Physician: ERLINDA Clarke; [id number] BMI: 41.96 kg/m2 Summary 1. Left ventricular systolic function is moderately reduced with an ejection fraction by Biplane Method of Discs of 39 %. Large septal and apical scar tissue present. Wall motion abnormalities as below. No evidence of LV thrombus with Definity.. 2. The left ventricular diastolic function is grade I diastolic dysfunction, consistent with low or normal atrial pressures. 3. Left ventricular chamber dimension is mildly enlarged. 4. No obvious significant valvular heart disease identified by limits of the study. History/Risk Factors Hypertension: Yes Dyslipidemia: Yes Peripheral Arterial Disease (PAD): Yes COPD: On Meds Tobacco Use: Former Cerebrovascular Disease: TIA History/Risk Factors Patient has prior CABG on 01/13/2019. Prior Interventions CABG: Yes Date of CAB01/13/2019 Procedure(s): Complete two-dimensional, color flow and Doppler transthoracic echocardiogram is performed with contrast. Left Ventricle Left ventricular chamber dimension is mildly enlarged. Left ventricular systolic function is moderately reduced with an ejection fraction by Biplane Method of Discs of 39 %. Large septal and apical scar tissue present. Wall motion abnormalities as below. No evidence of LV thrombus with Definity.. Normal left ventricular mass. Left ventricular segmental wall motion is normal. The left ventricular diastolic function is grade I diastolic dysfunction, consistent with low or normal atrial pressures. Right Ventricle Right ventricular chamber dimension is decreased. Not well-visualized. Left Atria Left atrial chamber dimension is normal. Right Atria Right atrial chamber dimension is normal. Aortic Valve The aortic valve is trileaflet. There is no aortic valve sclerosis. There is no aortic valve stenosis with a peak velocity of 1.0 m/s, mean gradient of 2 mmHg, and aortic valve area of 3.98 cm2. There is no aortic valve regurgitation. Pulmonic Valve The pulmonic valve is normal. There is no pulmonic valve stenosis. There is trace pulmonic regurgitation. Mitral Valve The mitral valve has normal leaflets. There is no mitral valve stenosis. There is trace mitral valve regurgitation. Tricuspid Valve The tricuspid valve leaflets are normal. There is no significant tricuspid valve stenosis. There is trace tricuspid valve regurgitation. There is no pulmonary hypertension, estimated right ventricle systolic pressure is 24 mmHg. Pericardium/Pleural The pericardium appears normal. There is no pericardial effusion. Inferior Vena Cava Normal inferior vena cava with <50% collapse upon inspiration consistent with normal right atrial pressure. Aorta The aortic measurements are indexed to age and body surface area. The aortic root is dilated measuring 4.20 cm with an index of 1.75 cm/m2. Wall Motion Scoring Wall Motion Scoring Index: 2.12 Left Ventricular Outflow Tract Name Value Normal LVOT 2D LVOT Diameter 2.29 cm LVOT Doppler LVOT Peak Velocity 0.90 m/s LVOT Peak Gradient 3 mmHg LVOT Mean Gradient 2 mmHg LVOT VTI 20.02 cm LVOT VTI/AV VTI Ratio 0.97 LVOT Stroke Volume 82.43 ml LVOT Stroke Index 29.39 ml/m2 LVOT CO 4.55 l/min LVOT CI 1.89 L/min/m2 Pulmonic Valve Name Value Normal PV 2D RVOT Diameter (2D) 3.23 cm 1.70-2.70 PV Doppler PV Peak Velocity 0.89 m/s PV Peak Gradient 3 mmHg Mitral Valve Name Value Normal MV Doppler MV Peak Velocity 0.97 m/s MV Peak Gradient 3 mmHg MV Mean Gradient 1 mmHg MV VTI 27.22 cm MV Decel Stutsman 300.69 cm/s2 MV PHT 71 ms MV Area (PHT) 3.12 cm2 4.00-5.00 MV Area (Cont Eq VTI) 3.03 cm2 MV Regurgitation Doppler MR VTI 149.84 cm MR PISA Radius 0.54 cm MR PISA Alias Velocity 28.26 cm/s MR ERO (PISA) 0.14 cm2 MR Volume (PISA) 21.64 ml MV Diastolic Function MV E Peak Velocity 0.73 m/s MV A Peak Velocity 0.60 m/s MV E/A 1.23 MV Decel Time 243 ms MV Annular TDI MV Septal e' Velocity 7.86 cm/s >=8.00 MV E/e' (Septal) 9.31 <=8.00 MV Lateral e' Velocity 7.97 cm/s >=10.00 MV E/e' (Lateral) 9.19 <=8.00 MV e' Average 7.92 MV E/e' (Average) 9.25 Tricuspid Valve Name Value Normal TV Regurgitation Doppler TR Peak Velocity 2.02 m/s TR Peak Gradient 14 mmHg Estimated PAP/RSVP RA Pressure 8 mmHg <=5 PA Systolic Pressure 24 mmHg <=36 RV Systolic Pressure 24 mmHg <36 Aorta Name Value Normal Ascending Aorta Ao Root Diameter (2D) 4.20 cm 3.10-3.70 Ao Root Diam Index (2D) 1.75 cm/m2 1.50-1.90 Aortic Valve Name Value Normal AV Doppler AV Peak Velocity 1.0 m/s AV Peak Gradient 4 mmHg AV Mean Gradient 2 mmHg AV VTI 20.70 cm AV Area (Cont Eq VTI) 3.98 cm2 AV Area Index (Cont Eq VTI) 2 cm2/m2 AV Area (Cont Eq Don) 3.84 cm2 AV Area Index (Cont Eq Don) 2 cm2/m2 LVOT Vmax/AV Vmax 0.93 LVOT VTI/AV VTI Ratio 0.97 AV Regurgitation 2D LVOT Area 4.12 cm2 Ventricles Name Value Normal LV Dimensions 2D/MM IVS Diastolic Thickness (2D) 1.17 cm 0.60-1.00 LVID Diastole (2D) 5.41 cm 4.20-5.80 LVIW Diastolic Thickness (2D) 1.08 cm 0.60-1.00 LVID Systole (2D) 4.17 cm 2.50-4.00 LVOT Diameter 2.29 cm LV Mass (2D Cubed) 243 g 88-224 LV Mass Index (2D Cubed) 101 g/m2 49-115 Relative Wall Thickness (2D) 0.40 <=0.42 LV Fractional Shortening/Ejection Fraction 2D/MM LV Fractional Shortening (2D) 23 % 25-43 LV EF (2D Lucas) 46 % 52-72 LV Diastolic Volume (4C MOD) 208 ml LV Systolic Volume (4C MOD) 117 ml LV EF (4C MOD) 44 % LV Diastolic Volume (2C MOD) 162 ml LV Systolic Volume (2C MOD) 95 ml LV EF (2C MOD) 41 % LV Diastolic Volume (BP MOD) 184.56 ml 62.00-150.00 LV Diastolic Volume Index (BP MOD) 76.79 ml/m2 34.00-74.00 LV Systolic Volume (BP MOD) 113.27 ml 21.00-61.00 LV Systolic Volume Index (BP MOD) 47.13 ml/m2 11.00-31.00 LV EF (BP MOD) 39 % 55-70 LV Diastolic Length (4C) 9.10 cm LV Systolic Length (4C) 8.74 cm LV Stroke Volume (4C MOD) 90.94 ml RV Dimensions 2D/MM RV Basal Diastolic Dimension 2.23 cm 2.50-4.10 TAPSE 1.81 cm >=1.70 RV Systolic Function RV s' Velocity 0.09 m/s 0.10-0.19 Atria Name Value Normal LA Dimensions LA Volume (4C MOD) 87.67 ml LA Volume (2C MOD) 60.26 ml LA Volume (4C A-L) 91.16 ml LA Volume (2C A-L) 61.58 ml LA Volume (BP A-L) 75.92 ml LA Volume Index (BP A-L) 31.59 ml/m2 <=34.00 LA Volume (BP MOD) 73.38 ml LA Volume Index (BP MOD) 30.53 ml/m2 16.00-34.00 RA Dimensions RA Systolic Major Cl[place] Length (4C) 5.70 cm <=5.30 RA Area (4C) 15.87 cm2 <=18.00 RA Area (4C) Index 6.60 cm2/m2 RA ESV (4C MOD) 38.16 ml 18.00-32.00 RA ESV Index (4C MOD) 15.87 ml/m2 <=32.00 Report Signatures Finalized by Emma Bueno MD on 10/16/2019 11:48 AM [facility] Patient Info Name: Andrew HELTON Age: 49 years : 1970 Gender: Male Ht: 168 cm Wt: 118 kg BSA: 2.40 m2 HR: 72 bpm BP: 136 / 94 mmHg Heart Rhythm: Sinus Rhythm Technical Quality: Fair Exam Date: 10/16/2019 9:53 AM Patient Status: Outpatient Yard Coordinator: Wally Longoria RCDS Exam Type: ECHOCARDIOGRAM COMPLETE W CONTRAST Study Info Indications - - Syncope Referring Physician: ERLINDA Clarke; [id number] BMI: 41.96 kg/m2 Summary 1. Left ventricular systolic function is moderately reduced with an ejection fraction by Biplane Method of Discs of 39 %. Large septal and apical scar tissue present. Wall motion abnormalities as below. No evidence of LV thrombus with Definity.. 2. The left ventricular diastolic function is grade I diastolic dysfunction, consistent with low or normal atrial pressures. 3. Left ventricular chamber dimension is mildly enlarged. 4. No obvious significant valvular heart disease identified by limits of the study. History/Risk Factors Hypertension: Yes Dyslipidemia: Yes Peripheral Arterial Disease (PAD): Yes COPD: On Meds Tobacco Use: Former Cerebrovascular Disease: TIA History/Risk Factors Patient has prior CABG on 01/13/2019. Prior Interventions CABG: Yes Date of CAB01/13/2019 Procedure(s): Complete two-dimensional, color flow and Doppler transthoracic echocardiogram is performed with contrast. Left Ventricle Left ventricular chamber dimension is mildly enlarged. Left ventricular systolic function is moderately reduced with an ejection fraction by Biplane Method of Discs of 39 %. Large septal and apical scar tissue present. Wall motion abnormalities as below. No evidence of LV thrombus with Definity.. Normal left ventricular mass. Left ventricular segmental wall motion is normal. The left ventricular diastolic function is grade I diastolic dysfunction, consistent with low or normal atrial pressures. Right Ventricle Right ventricular chamber dimension is decreased. Not well-visualized. Left Atria Left atrial chamber dimension is normal. Right Atria Right atrial chamber dimension is normal. Aortic Valve The aortic valve is trileaflet. There is no aortic valve sclerosis. There is no aortic valve stenosis with a peak velocity of 1.0 m/s, mean gradient of 2 mmHg, and aortic valve area of 3.98 cm2. There is no aortic valve regurgitation. Pulmonic Valve The pulmonic valve is normal. There is no pulmonic valve stenosis. There is trace pulmonic regurgitation. Mitral Valve The mitral valve has normal leaflets. There is no mitral valve stenosis. There is trace mitral valve regurgitation. Tricuspid Valve The tricuspid valve leaflets are normal. There is no significant tricuspid valve stenosis. There is trace tricuspid valve regurgitation. There is no pulmonary hypertension, estimated right ventricle systolic pressure is 24 mmHg. Pericardium/Pleural The pericardium appears normal. There is no pericardial effusion. Inferior Vena Cava Normal inferior vena cava with <50% collapse upon inspiration consistent with normal right atrial pressure. Aorta The aortic measurements are indexed to age and body surface area. The aortic root is dilated measuring 4.20 cm with an index of 1.75 cm/m2. Wall Motion Scoring Wall Motion Scoring Index: 2.12 Left Ventricular Outflow Tract Name Value Normal LVOT 2D LVOT Diameter 2.29 cm LVOT Doppler LVOT Peak Velocity 0.90 m/s LVOT Peak Gradient 3 mmHg LVOT Mean Gradient 2 mmHg LVOT VTI 20.02 cm LVOT VTI/AV VTI Ratio 0.97 LVOT Stroke Volume 82.43 ml LVOT Stroke Index 29.39 ml/m2 LVOT CO 4.55 l/min LVOT CI 1.89 L/min/m2 Pulmonic Valve Name Value Normal PV 2D RVOT Diameter (2D) 3.23 cm 1.70-2.70 PV Doppler PV Peak Velocity 0.89 m/s PV Peak Gradient 3 mmHg Mitral Valve Name Value Normal MV Doppler MV Peak Velocity 0.97 m/s MV Peak Gradient 3 mmHg MV Mean Gradient 1 mmHg MV VTI 27.22 cm MV Decel [place]utsman 300.69 cm/s2 MV PHT 71 ms MV Area (PHT) 3.12 cm2 4.00-5.00 MV Area (Cont Eq VTI) 3.03 cm2 MV Regurgitation Doppler MR VTI 149.84 cm MR PISA Radius 0.54 cm MR PISA Alias Velocity 28.26 cm/s MR ERO (PISA) 0.14 cm2 MR Volume (PISA) 21.64 ml MV Diastolic Function MV E Peak Velocity 0.73 m/s MV A Peak Velocity 0.60 m/s MV E/A 1.23 MV Decel Time 243 ms MV Annular TDI MV Septal e' Velocity 7.86 cm/s >=8.00 MV E/e' (Septal) 9.31 <=8.00 MV Lateral e' Velocity 7.97 cm/s >=10.00 MV E/e' (Lateral) 9.19 <=8.00 MV e' Average 7.92 MV E/e' (Average) 9.25 Tricuspid Valve Name Value Normal TV Regurgitation Doppler TR Peak Velocity 2.02 m/s TR Peak Gradient 14 mmHg Estimated PAP/RSVP RA Pressure 8 mmHg <=5 PA Systolic Pressure 24 mmHg <=36 RV Systolic Pressure 24 mmHg <36 Aorta Name Value Normal Ascending Aorta Ao Root Diameter (2D) 4.20 cm 3.10-3.70 Ao Root Diam Index (2D) 1.75 cm/m2 1.50-1.90 Aortic Valve Name Value Normal AV Doppler AV Peak Velocity 1.0 m/s AV Peak Gradient 4 mmHg AV Mean Gradient 2 mmHg AV VTI 20.70 cm AV Area (Cont Eq VTI) 3.98 cm2 AV Area Index (Cont Eq VTI) 2 cm2/m2 AV Area (Cont Eq Don) 3.84 cm2 AV Area Index (Cont Eq Don) 2 cm2/m2 LVOT Vmax/AV Vmax 0.93 LVOT VTI/AV VTI Ratio 0.97 AV Regurgitation 2D LVOT Area 4.12 cm2 Ventricles Name Value Normal LV Dimensions 2D/MM IVS Diastolic Thickness (2D) 1.17 cm 0.60-1.00 LVID Diastole (2D) 5.41 cm 4.20-5.80 LVIW Diastolic Thickness (2D) 1.08 cm 0.60-1.00 LVID Systole (2D) 4.17 cm 2.50-4.00 LVOT Diameter 2.29 cm LV Mass (2D Cubed) 243 g 88-224 LV Mass Index (2D Cubed) 101 g/m2 49-115 Relative Wall Thickness (2D) 0.40 <=0.42 LV Fractional Shortening/Ejection Fraction 2D/MM LV Fractional Shortening (2D) 23 % 25-43 LV EF (2D Teicholz) 46 % 52-72 LV Diastolic Volume (4C MOD) 208 ml LV Systolic Volume (4C MOD) 117 ml LV EF (4C MOD) 44 % LV Diastolic Volume (2C MOD) 162 ml LV Systolic Volume (2C MOD) 95 ml LV EF (2C MOD) 41 % LV Diastolic Volume (BP MOD) 184.56 ml 62.00-150.00 LV Diastolic Volume Index (BP MOD) 76.79 ml/m2 34.00-74.00 LV Systolic Volume (BP MOD) 113.27 ml 21.00-61.00 LV Systolic Volume Index (BP MOD) 47.13 ml/m2 11.00-31.00 LV EF (BP MOD) 39 % 55-70 LV Diastolic Length (4C) 9.10 cm LV Systolic Length (4C) 8.74 cm LV Stroke Volume (4C MOD) 90.94 ml RV Dimensions 2D/MM RV Basal Diastolic Dimension 2.23 cm 2.50-4.10 TAPSE 1.81 cm >=1.70 RV Systolic Function RV s' Velocity 0.09 m/s 0.10-0.19 Atria Name Value Normal LA Dimensions LA Volume (4C MOD) 87.67 ml LA Volume (2C MOD) 60.26 ml LA Volume (4C A-L) 91.16 ml LA Volume (2C A-L) 61.58 ml LA Volume (BP A-L) 75.92 ml LA Volume Index (BP A-L) 31.59 ml/m2 <=34.00 LA Volume (BP MOD) 73.38 ml LA Volume Index (BP MOD) 30.53 ml/m2 16.00-34.00 RA Dimensions RA Systolic Major [place] Length (4C) 5.70 cm <=5.30 RA Area (4C) 15.87 cm2 <=18.00 RA Area (4C) Index 6.60 cm2/m2 RA ESV (4C MOD) 38.16 ml 18.00-32.00 RA ESV Index (4C MOD) 15.87 ml/m2 <=32.00 Report Signatures Finalized by Emma Bueno MD on 10/16/2019 11:48 AM [facility] EKGon 10-16-2019 Ordered by an unspec ified provider. [facility] MORPHOLOGYon 10-16-2019 RBC morphology finding Nom (Bld) Normal [facility] Comment on above: RBC Indices confirme d with manual peripheral smear review. Magnesiumon 10-16-2019 Interpretation and review of laboratory results Normal [facility] Magnesium [Mass/Vol] 2.1 mg/dL 1.6 - 2 .4 mg/dL [facility] POC Glucoseon 10-16-2019 Glucose [Mass/Vol] 118 mg/dL High 65 - 99 mg/dL [facility] Interpretation and review of laboratory results Abnormal [facility] TROPONINon 10-16-2019 Troponin I.cardiac [Mass/Vol] ng/mL <=45 ng/L [facility] Troponin I.cardiac [Mass/Vol] Normal [facility] URINALYSISon 10-16-2019 Bacteria Auto Ql (U) None Seen None Se en /hpf [facility] Bilirubin Ql (U) Negative Negative [facility] th Clarity Refractometry automated (U) Clear Clear [facility] Color (U) Yellow Colorless, Yellow [facility] Epithelial cells.squamous Auto (Urine sed) [#/Area] <1 [facility] Glucose Auto test strip (U) [Mass/Vol] 50 Abnormal Negative mg/dL [facility] Hemoglobin Auto test strip Ql (U) Negative Negative [facility] Interpretation and review of laboratory results Abnormal [facility] Ketones (U) [Mass/Vol] Negative Negat bryan mg/dL [facility] Leukocyte esterase Auto test strip Ql (U) Negative Negative [facility] Nitrite Auto test strip Ql (U) Negative Negative [facility] pH (U) 5.5 [pH] [facility] Protein (U) [Mass/Vol] Negative Negat bryan mg/dL [facility] RBC Auto (Urine sed) [#/Area] 2 [facility] Specific gravity (U) [Rel density] 1.033 High [facility] Urobilinogen (U) [Mass/Vol] <2.0 <2.0 mg/dL [facility] WBC Auto (Urine sed) [#/Area] <1 [facility] Microscopic examinat ion is performed on all urinalysis samples and only positive findings are reported. The test for blood on the chemical analytic portion of urinalysis may also be positive due to hemoglobinuria and myoglobinuria and if red blood cells are present they are quantified by microscopic examination. [facility] Alcohol, Medicalon 0 Ethanol [Mass/Vol] mg/dL <10.00 mg/dL [facility] Comment on above: Alcohol cutoff: <10. 00 mg/dL = None Detected Interpretation and review of laboratory results Normal [facility] BMPon 10-15-2019 Anion gap [Moles/Vol] 10 mmol/L 10 - 2 0 mmol/L [facility] Calcium [Mass/Vol] 9.0 mg/dL 8.4 - 10. 2 mg/dL [facility] Chloride [Moles/Vol] 108 mmol/L 98 - 10 8 mmol/L [facility] Creatinine [Mass/Vol] 1.41 mg/dL High 0.50 - 1.30 [facility] GFR/1.73 sq M predicted among non-blacks MDRD (S/P/Bld) [Vol rate/Area] The eGFR should be used for monitoring renal function only and not for medication dosing. [facility] GFR/1.73 sq M.predicted CKD-EPI (S/P/Bld) [Vol rate/Area] 58 Low >=60 mL/min/1.7 3 m2 [facility] Glucose [Mass/Vol] 203 mg/dL High 65 - 99 mg/dL [facility] HCO3 [Moles/Vol] 23 mmol/L 21 - 32 mmol/L [facility] Interpretation and review of laboratory results Abnormal [facility] Potassium [Moles/Vol] 4.2 mmol/L 3.5 - 5.1 mmol/L [facility] Sodium [Moles/Vol] 137 mmol/L 135 - 145 mmol/L [facility] Urea nitrogen [Mass/Vol] 27 mg/dL High 8 - 25 mg/dL [facility] Urea nitrogen/Creatinine [Mass ratio] 19.1 mg/mg [facility] CBC WITH AUTO DIFFERENTIALon 10-15-2019 Basophils (Bld) [#/Vol] 0.05 10*3/uL [facility] Basophils/100 WBC (Bld) 0.3 % [facility] Eosinophils (Bld) [#/Vol] 0.01 10*3/uL [facility] Eosinophils/100 WBC (Bld) 0.1 % [facility] Erythrocyte distribution width (RBC) [Entitic vol] 15.3 % High 11.6 - 14.8 % [facility] Hematocrit (Bld) [Volume fraction] 45.2 % 41 - 53 % [facility] Hemoglobin (Bld) [Mass/Vol] 14.6 g/dL 13.5 - 17.5 g/dL [facility] Immature granulocytes (Bld) [#/Vol] 0.15 10*3/uL [facility] Immature granulocytes/100 WBC (Bld) 0.90 % [facility] Comment on above: The IG parameter is the percentage of metamyelocytes, myelocytes and promyelocytes. An immature granulocyte count (IG) of 1% or more suggests the possibility of infection, an IG count of 3% is very likely related to an infection. Lymphocytes (Bld) [#/Vol] 3.35 10*3/uL [facility] Lymphocytes/100 WBC (Bld) 19.9 % [facility] MCH (RBC) [Entitic mass] 27.2 pg 26 - 34 pg [facility] MCHC (RBC) [Mass/Vol] 32.3 g/dL 31 - 3 7 g/dL [facility] MCV (RBC) [Entitic vol] 84.2 fL 80 - 100 fL [facility] Monocytes (Bld) [#/Vol] 1.39 10*3/uL High [facility] Monocytes/100 WBC (Bld) 8.2 % [facility] Neutrophils (Bld) [#/Vol] 11.91 10*3/uL High [facility] Neutrophils/100 WBC (Bld) 70.6 % [facility] Nucleated RBC (Bld) [#/Vol] 0.00 10*3/uL [facility] Nucleated RBC/100 WBC (Bld) [Ratio] 0.0 % [facility] Platelet mean volume (Bld) [Entitic vol] 10.5 fL 9.4 - 12.4 fL [facility] Platelets (Bld) [#/Vol] 329 10*3/uL [facility] RBC (Bld) [#/Vol] 5.37 10*6/uL [facility]alth WBC (Bld) [#/Vol] 16.86 10*3/uL [facility] COVID-19, Molecularon 2019 Interpretation and review of laboratory results Normal [facility] SARS-CoV-2 Not Detected Not Detected [facility] Comment on above: This test was perfor med under the FDA's Emergency Use Authorization (EUA). Testing was performed using the Calvillo ID NOW COVID-19 assay on the ID NOW platform. This test has not been approved for use in asymptomatic patients and its performance in this patient population has not been evaluated. Negative results do not rule out the presence of SARS-CoV-2/COVID-19. Fact sheets for the EUA can be found at the following links: For Healthcare Providers: https://www.[employer].gov/media/239049/download For Patients: https://www.[employer].gov/Wukong.com/702907/download CT HEAD OR BRAIN WITHOUT CON TRASTon 10-15-2019 Interface, Rad In Luis Fernando Garcia - 10/15/2019 10:25 PM EDT EXAMINATION: CT HEAD OR BRAIN WITHOUT CONTRAST HISTORY: ORDERING SYSTEM PROVIDED HISTORY: TIA, initial exam, TECHNOLOGIST PROVIDED HISTORY: Illness/Other Reason for exam: SYNCOPAL EPISODE AND BECAME DIAPHORETIC Encounter Type: Initial Additional signs and symptoms: ORDERING SYSTEM PROVIDED DIAGNOSIS CODES: COMPARISON: 09/22/2019 CT head, 09/23/2019 MRI brain TECHNIQUE: Axial CT images of the brain from skull base to vertex, including portions of the face and sinuses, were obtained without contrast. Multiplanar 2D reformatted images were generated and reviewed. Dose reduction techniques were achieved by using automated exposure control and/or adjustment of mA and/or kV according to patient size and/or use of iterative reconstruction technique. FINDINGS: BRAIN: No acute intracranial hemorrhage. No extraaxial collection. No midline shift. No mass or mass effect. Caldwell-white matter differentiation preserved. CSF: Ventricles and sulci appropriate for age. Patent basal cisterns. ORBITS: The visualized orbital structures are unremarkable. PARANASAL SINUSES/MASTOID AIR CELLS: Postsurgical changes of the paranasal sinuses. Chronic sinusitis appears intervally improved compared to prior, particularly in the ethmoid region. The mastoid air cells are clear. SOFT TISSUES: Unremarkable. BONES: No acute osseous abnormality. IMPRESSION: No CT evidence of acute intracranial abnormality. Workstation ID: [id number] [facility] EXAMINATION: CT HEAD OR BRAIN WITHOUT CONTRAST HISTORY: ORDERING SYSTEM PROVIDED HISTORY: TIA, initial exam, TECHNOLOGIST PROVIDED HISTORY: Illness/Other Reason for exam: SYNCOPAL EPISODE AND BECAME DIAPHORETIC Encounter Type: Initial Additional signs and symptoms: ORDERING SYSTEM PROVIDED DIAGNOSIS CODES: COMPARISON: 09/22/2019 CT head, 09/23/2019 MRI brain TECHNIQUE: Axial CT images of the brain from skull base to vertex, including portions of the face and sinuses, were obtained without contrast. Multiplanar 2D reformatted images were generated and reviewed. Dose reduction techniques were achieved by using automated exposure control and/or adjustment of mA and/or kV according to patient size and/or use of iterative reconstruction technique. FINDINGS: BRAIN: No acute intracranial hemorrhage. No extraaxial collection. No midline shift. No mass or mass effect. Caldwell-white matter differentiation preserved. CSF: Ventricles and sulci appropriate for age. Patent basal cisterns. ORBITS: The visualized orbital structures are unremarkable. PARANASAL SINUSES/MASTOID AIR CELLS: Postsurgical changes of the paranasal sinuses. Chronic sinusitis appears intervally improved compared to prior, particularly in the ethmoid region. The mastoid air cells are clear. SOFT TISSUES: Unremarkable. BONES: No acute osseous abnormality. [facility] No CT evidence of ac soni intracranial abnormality. Workstation ID: [id number] [facility] ECG 12-LEADon 10-15-2019 Atrial Rate 85 BPM [facility] P [place] 61 degrees [facility] P-R Interval 170 ms [facility] Q-T Interval 388 ms [facility] QRS Duration 90 ms [facility] QTC Calculation (Bezet) 461 ms [facility] R [place] -4 degrees [facility] T [place] 80 degrees [facility] Ventricular Rate 85 BPM [facility] th Normal sinus rhythm Low voltage QRS Inferior infarct , age undetermined Cannot rule out Anteroseptal infarct , age undetermined Abnormal ECG ECG Cart Interpretation see physician note for interpretation. Confirmed by Brandy Kc ([id number]) on 10/15/2019 10:58:08 PM [facility] Hepatic Function Panel (LFT) on 10-15-2019 Albumin [Mass/Vol] 3.5 g/dL 3.2 - 5.2 g/dL [facility] ALP [Catalytic activity/Vol] 106 U/L 40 - 150 U/L [facility] ALT [Catalytic activity/Vol] 52 U/L 14 - 65 U/L [facility] AST [Catalytic activity/Vol] 21 U/L 0 - 45 U/L [facility] Bilirubin [Mass/Vol] 0.4 mg/dL 0 - 1.3 mg/dL [facility] Bilirubin.conjugated [Mass/Vol] 0.1 mg/dL 0 - 0.4 mg/dL [facility] Protein [Mass/Vol] 7.1 g/dL 6 - 8 g/dL [facility] NT Pro BNPon 10-15-2019 Natriuretic peptide.B prohormone N-Terminal [Mass/Vol] 137 pg/mL 0 - 300 pg/mL [facility] Pride Study Cut-offs Rule In: < /= 50 Years >450 pg/mL 51 Years - 75 Years >900 pg/mL 76 Years - 99 Years >1800 pg/mL Rule Out: All patients <300 pg/mL [facility] Otheron 10-15-2019 Interpretation and review of laboratory results Normal [facility] Interpretation and review of laboratory results Abnormal [facility] POC Glucoseon 10-15-2019 Glucose [Mass/Vol] 189 mg/dL Abnormal 65 - 99 mg/dL [facility] Interpretation and review of laboratory results Abnormal [facility] Glucose [Mass/Vol] 189 mg/dL High 65 - 99 mg/dL [facility] PT/INRon 10-15-2019 INR Coag (PPP) [Relative time] 1.0 {INR} [facility] Interpretation and review of laboratory results Normal [facility] PT Coag (PPP) [Time] 12.7 s [facility] During the induction phase of oral anticoagulation, the INR may not reflect the anticoagulation status of the patient. Therapeutic ranges for INR's are: Most clinical situations: INR 2.0-3.0 Mechanical Prosthetic Valve: INR 2.5-3.5 Critical: INR >5.0 [facility] TROPONINon 10-15-2019 Troponin I.cardiac [Mass/Vol] Normal [facility] Troponin I.cardiac [Mass/Vol] ng/mL <=45 ng/L [facility] XR Chest 1 Viewon 10-15-2019 No acute cardiopulmo nary disease. Workstation ID: [id number] [facility] Interface, Rad In Luis Fernando ji Speechq - 10/15/2019 10:31 PM EDT EXAMINATION: XR CHEST PA/AP, 10/15/2019 HISTORY: diaphoresis COMPARISON: Chest, 09/22/2019. FINDINGS: Sternotomy wires are unchanged. Cardiac size, mediastinal contour and pulmonary vascularity appear within normal limits. The lungs are well expanded and appear clear. IMPRESSION: No acute cardiopulmonary disease. Workstation ID: [id number] [facility] EXAMINATION: XR CHES T PA/AP, 10/15/2019 HISTORY: diaphoresis COMPARISON: Chest, 09/22/2019. FINDINGS: Sternotomy wires are unchanged. Cardiac size, mediastinal contour and pulmonary vascularity appear within normal limits. The lungs are well expanded and appear clear. [facility] EKGon 09-23-2019 Ordered by an unspec ified provider. [facility] Lipid Panelon 09-23-2019 Cholesterol [Mass/Vol] 155 mg/dL 100 - 199 mg/dL [facility] Comment on above: National Cholesterol Education Program Guidelines: Cholesterol Desirable: <200 mg/dL Borderline High: 200-239 mg/dL High: greater than or equal to 240 mg/dL Cholesterol in HDL [Mass/Vol] 38 mg/dL Low 40 - 59 [facility] Comment on above: National Cholesterol Education Program Guidelines: HDL Cholesterol Low: <40 mg/dL Near Optimal: 40-59 mg/dL High: greater than or equal to 60 mg/dL Cholesterol in LDL [Mass/Vol] 79 mg/dL 10 - 130 mg/dL [facility] Comment on above: National Cholesterol Education Program Guidelines: LDL Cholesterol Optimal: <100 mg/dL Near Optimal/above Optimal: 100-129 mg/dL Borderline High: 130-159 mg/dL High: 160-189 mg/dL Very High: greater than or equal to 190 mg/dL Cholesterol non HDL [Mass/Vol] 117 mg/dL [facility] Comment on above: National Cholesterol Education Program Guidelines: NON HDL Cholesterol Desirable: <130 mg/dL Borderline High: 130-159 mg/dL High: 160-189 mg/dL Very High: > or = 190 mg/dL Cholesterol.total/Choles terol in HDL [Mass ratio] 4.1 {ratio} ratio [facility] Comment on above: Males Cholesterol/HD L Ratio: Average risk: 5.0 1/2 average risk: 3.4 2 x average risk: 9.6 Interpretation and review of laboratory results Abnormal [facility] Triglyceride [Mass/Vol] 192 mg/dL High 30 - 150 mg/dL [facility] Comment on above: National Cholesterol Education Program Guidelines: Triglyceride Normal: <150 mg/dL Borderline High: 150-199 mg/dL High: 200-499 mg/dL Very High: greater than or equal to 500 mg/dL MR Brain With And Without Co ntraston 09-23-2019 No acute intracrania l abnormality and no abnormal enhancement within the limitation of the study. Workstation ID: [id number] [facility] Interface, Rad In Luis Fernando Garciaq - 09/23/2019 12:57 PM EDT EXAMINATION: MR BRAIN WITH AND WITHOUT CONTRAST HISTORY: dizziness, blurred vision left eye, generalized weakness, r/o stroke Injury/Trauma or Illness?:Illness/Other How long have you had these symptoms (acute/chronic)?:Acute Reason for exam?:came into ER yesterday weakness , slurred speech , altered mental status, blurred vision and dizziness Type of Exam?:Initial Additional signs and symptoms?:. I63.9 Acute CVA (cerebrovascular accident) (HCC) Injury/Trauma or Illness?:Illness/Other How long have you had these symptoms (acute/chronic)?:Acute COMPARISON: Prior CT head dated 09/22/2019 TECHNIQUE: Multiplanar multiecho sequences were performed through the brain utilizing T1 and T2 weighting, as well as T2 gradient echo sequences, and axial diffusion weighted images. 3 planes T1 postcontrast as well as T2 gradient echo sequences, and axial diffusion weighted images. Imaging was performed with and without contrast administration: 20 mL of contrast:DOTAREM FINDINGS: Diagnostic Quality: Slightly degraded by motion. The brain sulci and ventricles are within normal limits for patient age. There is no significant white matter changes were noted. There is no intraparenchymal mass, mass effect or midline shift is noted. No abnormal extra-axial fluid collections are seen. The basal cisterns are patent. No evidence of acute infarction or definite intracranial hemorrhage within the limitation the study. Vascular Flow Voids: Normal. Paranasal Sinuses and Mastoid Air Cells: There is circumferential mucosal thickening in the maxillary and ethmoidal sinuses and frontal sinuses. The mastoid air cells are grossly clear. Orbits: No definite masses within the limitations of the study. Extracranial Findings: None. Craniocervical Junction and Skull Base: No tonsillar ectopia or mass is present.. IMPRESSION: No acute intracranial abnormality and no abnormal enhancement within the limitation of the study. Workstation ID: [id number] [facility] EXAMINATION: MR XIOMARA Kincaid WITH AND WITHOUT CONTRAST HISTORY: dizziness, blurred vision left eye, generalized weakness, r/o stroke Injury/Trauma or Illness?:Illness/Other How long have you had these symptoms (acute/chronic)?:Acute Reason for exam?:came into ER yesterday weakness , slurred speech , altered mental status, blurred vision and dizziness Type of Exam?:Initial Additional signs and symptoms?:. I63.9 Acute CVA (cerebrovascular accident) (HCC) Injury/Trauma or Illness?:Illness/Other How long have you had these symptoms (acute/chronic)?:Acute COMPARISON: Prior CT head dated 09/22/2019 TECHNIQUE: Multiplanar multiecho sequences were performed through the brain utilizing T1 and T2 weighting, as well as T2 gradient echo sequences, and axial diffusion weighted images. 3 planes T1 postcontrast as well as T2 gradient echo sequences, and axial diffusion weighted images. Imaging was performed with and without contrast administration: 20 mL of contrast:DOTAREM FINDINGS: Diagnostic Quality: Slightly degraded by motion. The brain sulci and ventricles are within normal limits for patient age. There is no significant white matter changes were noted. There is no intraparenchymal mass, mass effect or midline shift is noted. No abnormal extra-axial fluid collections are seen. The basal cisterns are patent. No evidence of acute infarction or definite intracranial hemorrhage within the limitation the study. Vascular Flow Voids: Normal. Paranasal Sinuses and Mastoid Air Cells: There is circumferential mucosal thickening in the maxillary and ethmoidal sinuses and frontal sinuses. The mastoid air cells are grossly clear. Orbits: No definite masses within the limitations of the study. Extracranial Findings: None. Craniocervical Junction and Skull Base: No tonsillar ectopia or mass is present.. [facility] POC Glucoseon 09-23-2019 Glucose [Mass/Vol] 102 mg/dL High 65 - 99 mg/dL [facility] Interpretation and review of laboratory results Abnormal [facility] Glucose [Mass/Vol] 110 mg/dL High 65 - 99 mg/dL [facility] Interpretation and review of laboratory results Abnormal [facility] Glucose [Mass/Vol] 123 mg/dL High 65 - 99 mg/dL [facility] Interpretation and review of laboratory results Abnormal [facility] Glucose [Mass/Vol] 113 mg/dL High 65 - 99 mg/dL [facility] Interpretation and review of laboratory results Abnormal [facility] CBC WITH AUTO DIFFERENTIALon 09-22-2019 Basophils (Bld) [#/Vol] 0.10 10*3/uL [facility] Basophils/100 WBC (Bld) 1.0 % [facility] Eosinophils (Bld) [#/Vol] 0.68 10*3/uL High [facility] Eosinophils/100 WBC (Bld) 6.8 % [facility] Erythrocyte distribution width (RBC) [Entitic vol] 15.9 % High 11.6 - 14.8 % [facility] Hematocrit (Bld) [Volume fraction] 44.9 % 41 - 53 % [facility] Hemoglobin (Bld) [Mass/Vol] 14.0 g/dL 13.5 - 17.5 g/dL [facility] Immature granulocytes (Bld) [#/Vol] 0.07 10*3/uL [facility] Immature granulocytes/100 WBC (Bld) 0.70 % [facility] Comment on above: The IG parameter is the percentage of metamyelocytes, myelocytes and promyelocytes. An immature granulocyte count (IG) of 1% or more suggests the possibility of infection, an IG count of 3% is very likely related to an infection. Interpretation and review of laboratory results Abnormal [facility] Lymphocytes (Bld) [#/Vol] 2.50 10*3/uL [facility] Lymphocytes/100 WBC (Bld) 25.2 % [facility] MCH (RBC) [Entitic mass] 26.6 pg 26 - 34 pg [facility] MCHC (RBC) [Mass/Vol] 31.2 g/dL 31 - 3 7 g/dL [facility] MCV (RBC) [Entitic vol] 85.2 fL 80 - 100 fL [facility] Monocytes (Bld) [#/Vol] 0.86 10*3/uL [facility] Monocytes/100 WBC (Bld) 8.7 % [facility] Neutrophils (Bld) [#/Vol] 5.72 10*3/uL [facility] Neutrophils/100 WBC (Bld) 57.6 % [facility] Nucleated RBC (Bld) [#/Vol] 0.00 10*3/uL [facility] Nucleated RBC/100 WBC (Bld) [Ratio] 0.0 % [facility] Platelet mean volume (Bld) [Entitic vol] 10.1 fL 9.4 - 12.4 fL [facility] Platelets (Bld) [#/Vol] 265 10*3/uL [facility] RBC (Bld) [#/Vol] 5.27 10*6/uL [facility] WBC (Bld) [#/Vol] 9.93 10*3/uL [facility], Molecularon 2019 Interpretation and review of laboratory results Normal [facility] SARS-CoV-2 Not Detected Not Detected [facility] Comment on above: This test was perfor med under the FDA's Emergency Use Authorization (EUA). Testing was performed using the Calvillo ID NOW COVID-19 assay on the ID NOW platform. This test has not been approved for use in asymptomatic patients and its performance in this patient population has not been evaluated. Negative results do not rule out the presence of SARS-CoV-2/COVID-19. Fact sheets for the EUA can be found at the following links: For Healthcare Providers: https://www.[employer].gov/media/476878/download For Patients: https://www.[employer].gov/Wukong.com/500962/download CT ANGIOGRAM HEAD NECKon EXAMINATION: CT EDNA OGRAM HEAD NECK HISTORY: ORDERING SYSTEM PROVIDED HISTORY: Ataxia, stroke suspected, TECHNOLOGIST PROVIDED HISTORY: Illness/Other Reason for exam: Ataxia, stroke suspected Encounter Type: Initial Additional signs and symptoms: Ataxia, stroke suspected ORDERING SYSTEM PROVIDED DIAGNOSIS CODES: I63.9 Acute CVA (cerebrovascular accident) (HCC) COMPARISON: CT brain 09/22/2019. TECHNIQUE: Initial noncontrast images were obtained to determine the site of clinical interest. 75 mL of Isovue-[id number] was then injected. Sequential axial films were obtained. Coronal and sagittal reconstructions were generated from the axial data set. Coronal and sagittal MIP (maximum intensity projection) images were performed. Dose reduction techniques were achieved by using automated exposure control and/or adjustment of mA and/or kV according to patient size and/or use of iterative reconstruction technique. Carotid stenosis is reported according to NASCET criteria. FINDINGS: CT angiography of the neck: Great vessels arise from the aortic arch in their usual anatomic configuration without stenosis. The vertebral arteries arise from their respective subclavian arteries. They travel through the cervical foramen without evidence of dissection or occlusion. They coalesce at the skull base to form the basilar artery. The common carotid arteries are patent. At the bifurcation, there is no critical or significant stenosis seen. The internal carotid artery flow to the skull base is normal. CT angiography of the brain: The basilar artery is tortuous and terminates as the superior cerebellar and posterior cerebral arteries. The internal carotid arteries are patent. The cavernous loops show mild calcification but no narrowing. The anterior and the middle cerebral arteries are symmetrical. There is a normal-appearing anterior communicating artery. There is no intracranial stenosis or focal branch occlusion. Enhanced CT brain shows no areas of abnormal intraaxial or extraaxial enhancement. Soft tissue neck: Parotid and submandibular glands are homogeneous. The epiglottis is not well visualized due to patient motion. There is no airway compromise. [facility], Rad In Fu ji Speechq - 09/22/2019 11:27 AM EDT EXAMINATION: CT ANGIOGRAM HEAD NECK HISTORY: ORDERING SYSTEM PROVIDED HISTORY: Ataxia, stroke suspected, TECHNOLOGIST PROVIDED HISTORY: Illness/Other Reason for exam: Ataxia, stroke suspected Encounter Type: Initial Additional signs and symptoms: Ataxia, stroke suspected ORDERING SYSTEM PROVIDED DIAGNOSIS CODES: I63.9 Acute CVA (cerebrovascular accident) ([facility]) COMPARISON: CT brain 09/22/2019. TECHNIQUE: Initial noncontrast images were obtained to determine the site of clinical interest. 75 mL of Isovue-370 was then injected. Sequential axial films were obtained. Coronal and sagittal reconstructions were generated from the axial data set. Coronal and sagittal MIP (maximum intensity projection) images were performed. Dose reduction techniques were achieved by using automated exposure control and/or adjustment of mA and/or kV according to patient size and/or use of iterative reconstruction technique. Carotid stenosis is reported according to NASCET criteria. FINDINGS: CT angiography of the neck: Great vessels arise from the aortic arch in their usual anatomic configuration without stenosis. The vertebral arteries arise from their respective subclavian arteries. They travel through the cervical foramen without evidence of dissection or occlusion. They coalesce at the skull base to form the basilar artery. The common carotid arteries are patent. At the bifurcation, there is no critical or significant stenosis seen. The internal carotid artery flow to the skull base is normal. CT angiography of the brain: The basilar artery is tortuous and terminates as the superior cerebellar and posterior cerebral arteries. The internal carotid arteries are patent. The cavernous loops show mild calcification but no narrowing. The anterior and the middle cerebral arteries are symmetrical. There is a normal-appearing anterior communicating artery. There is no intracranial stenosis or focal branch occlusion. Enhanced CT brain shows no areas of abnormal intraaxial or extraaxial enhancement. Soft tissue neck: Parotid and submandibular glands are homogeneous. The epiglottis is not well visualized due to patient motion. There is no airway compromise. IMPRESSION: 1. No extracranial carotid or vertebral artery stenosis. 2. Unremarkable intracranial CTA. 3. No enhancing intracranial process. [facility] Workstation ID: [id number] [facility] 1. No extracranial carotid or vertebral artery stenosis. 2. Unremarkable intracranial CTA. 3. No enhancing intracranial process. [facility] Workstation ID: [id number] [facility] CT HEAD WITHOUT CONTRAST (ST ROKE)on 09-22-2019 Interface, Rad In Luis Fernando yi Speechq - 09/22/2019 8:09 AM EDT EXAMINATION: CT HEAD WITHOUT CONTRAST (STROKE) HISTORY: ORDERING SYSTEM PROVIDED HISTORY: Dizziness, non-specific, TECHNOLOGIST PROVIDED HISTORY: Illness/Other Reason for exam: dizzines, stroke alert Encounter Type: Initial Additional signs and symptoms: no ORDERING SYSTEM PROVIDED DIAGNOSIS CODES: COMPARISON: None TECHNIQUE: CT examination of the head without IV contrast. Dose reduction techniques were achieved by using automated exposure control and/or adjustment of mA and/or kV according to patient size and/or use of iterative reconstruction technique. FINDINGS: There is no focal scalp soft tissue swelling or acute calvarial fracture. There is extensive paranasal sinus mucosal thickening with partial opacification of ethmoid air cells. There are no paranasal sinus air-fluid levels. Bilateral mastoid air cells are clear. Ventricles and sulci are normal and symmetric bilaterally. There is no acute intraparenchymal hemorrhage, extra-axial fluid collection, mass lesion, or acute large vessel ischemia by noncontrast CT. IMPRESSION: 1. No acute intracranial hemorrhage or large vessel ischemia by noncontrast CT. 2. Chronic paranasal sinus disease. If patient has a focal neurologic deficit or there is clinical suspicion for acute cerebrovascular accident, brain MRI may be performed for further evaluation. Workstation ID: [id number] [facility] 1. No acute intracra nial hemorrhage or large vessel ischemia by noncontrast CT. 2. Chronic paranasal sinus disease. If patient has a focal neurologic deficit or there is clinical suspicion for acute cerebrovascular accident, brain MRI may be performed for further evaluation. Workstation ID: [id number] [facility] EXAMINATION: CT HEAD WITHOUT CONTRAST (STROKE) HISTORY: ORDERING SYSTEM PROVIDED HISTORY: Dizziness, non-specific, TECHNOLOGIST PROVIDED HISTORY: Illness/Other Reason for exam: dizzines, stroke alert Encounter Type: Initial Additional signs and symptoms: no ORDERING SYSTEM PROVIDED DIAGNOSIS CODES: COMPARISON: None TECHNIQUE: CT examination of the head without IV contrast. Dose reduction techniques were achieved by using automated exposure control and/or adjustment of mA and/or kV according to patient size and/or use of iterative reconstruction technique. FINDINGS: There is no focal scalp soft tissue swelling or acute calvarial fracture. There is extensive paranasal sinus mucosal thickening with partial opacification of ethmoid air cells. There are no paranasal sinus air-fluid levels. Bilateral mastoid air cells are clear. Ventricles and sulci are normal and symmetric bilaterally. There is no acute intraparenchymal hemorrhage, extra-axial fluid collection, mass lesion, or acute large vessel ischemia by noncontrast CT. [facility] Chem 7on 09-22-2019 Anion gap [Moles/Vol] 11 mmol/L 10 - 2 0 mmol/L [facility] Chloride [Moles/Vol] 108 mmol/L 98 - 10 8 mmol/L [facility] Creatinine [Mass/Vol] 1.16 mg/dL 0.50 - 1.30 [facility] GFR/1.73 sq M predicted among non-blacks MDRD (S/P/Bld) [Vol rate/Area] The eGFR should be used for monitoring renal function only and not for medication dosing. [facility] GFR/1.73 sq M.predicted CKD-EPI (S/P/Bld) [Vol rate/Area] 74 >=60 mL/min/1.7 3 m2 [facility] Glucose [Mass/Vol] 129 mg/dL High 65 - 99 mg/dL [facility] HCO3 [Moles/Vol] 25 mmol/L 21 - 32 mmol/L [facility] Interpretation and review of laboratory results Abnormal [facility] Potassium [Moles/Vol] 4.3 mmol/L 3.5 - 5.1 mmol/L [facility] Sodium [Moles/Vol] 140 mmol/L 135 - 145 mmol/L [facility] Urea nitrogen [Mass/Vol] 24 mg/dL 8 - 25 mg/dL [facility] Urea nitrogen/Creatinine [Mass ratio] 20.7 mg/mg High [facility] ECG 12-LEADon 09-22-2019 Atrial Rate 67 BPM [facility] P Cl[place] 63 degrees [facility] P-R Interval 172 ms [facility] Q-T Interval 404 ms [facility] QRS Duration 86 ms [facility] QTC Calculation (Bezet) 426 ms [facility] R [place] 11 degrees [facility] T [place] 79 degrees [facility] Ventricular Rate 67 BPM [facility] Normal sinus rhythm Low voltage QRS Possible Anterolateral infarct , age undetermined Abnormal ECG ECG Cart Interpretation see physician note for interpretation. Confirmed by Brandy Kc ([id number]) on 09/22/2019 3:33:43 PM [facility] Hemoglobin A1con 09-22-2019 Average glucose Estimated from glycated hemoglobin mass conc (Bld) 137 mg/dL High 68 - 114 mg/dL [facility] HbA1c (Bld) [Mass fraction] 6.4 % High 4 - 5.6 % [facility] Interpretation and review of laboratory results Abnormal [facility] Normal: 4.0% - 5.6% Increased risk for diabetes: 5.7% - 6.4% Diabetes: >= 6.5% Pediatrics: No established reference range Estimated average glucose: 68-114 mg/dL [facility] Metabolic Panelon 09-22-2019 Glucose [Mass/Vol] 126 mg/dL High 65 - 99 mg/dL [facility] Otheron 09-22-2019 Extra Tube Hold for add-ons. [facility] Comment on above: Auto resulted. Interpretation and review of laboratory results Abnormal [facility] POC Glucoseon 09-22-2019 Glucose [Mass/Vol] 121 mg/dL High 65 - 99 mg/dL [facility] Interpretation and review of laboratory results Abnormal [facility] Glucose [Mass/Vol] 164 mg/dL High 65 - 99 mg/dL [facility] Interpretation and review of laboratory results Abnormal [facility] Glucose [Mass/Vol] 105 mg/dL High 65 - 99 mg/dL [facility] Interpretation and review of laboratory results Abnormal [facility] TROPONINon 09-22-2019 Troponin I.cardiac [Mass/Vol] ng/mL <=45 ng/L [facility] Troponin I.cardiac [Mass/Vol] Normal [facility] XR Chest 1 Viewon 09-22-2019 1. Prior median sternotomy with mild cardiomegaly. 2. No acute cardiopulmonary process otherwise suspected. [facility] Workstation ID: [id number] [facility] Interface, Rad In Fu ji Speechq - 09/22/2019 10:15 AM EDT EXAMINATION: XR CHEST PA/AP 09/22/2019 7:58 am HISTORY: ORDERING SYSTEM PROVIDED HISTORY: weakness, slured speech, altered mental status, TECHNOLOGIST PROVIDED HISTORY: Illness/Other Reason for exam: weakness, slured speech, altered mental status Cancer History: u Surgery, RadiationHistory: yes Encounter Type: Initial Additional signs and symptoms: low BP ORDERING SYSTEM PROVIDED DIAGNOSIS CODES: COMPARISON: CT pulmonary angiogram 02/25/2019. FINDINGS: Prior median sternotomy noted. The heart size is mildly prominent. No dense consolidation, effusion, edema, failure or pneumothorax is noted. No acute osseous abnormality is otherwise identified. IMPRESSION: 1. Prior median sternotomy with mild cardiomegaly. 2. No acute cardiopulmonary process otherwise suspected. [facility] Workstation ID: [id number] [facility] EXAMINATION: XR CHES T PA/AP 09/22/2019 7:58 am HISTORY: ORDERING SYSTEM PROVIDED HISTORY: weakness, slured speech, altered mental status, TECHNOLOGIST PROVIDED HISTORY: Illness/Other Reason for exam: weakness, slured speech, altered mental status Cancer History: u Surgery, RadiationHistory: yes Encounter Type: Initial Additional signs and symptoms: low BP ORDERING SYSTEM PROVIDED DIAGNOSIS CODES: COMPARISON: CT pulmonary angiogram 02/25/2019. FINDINGS: Prior median sternotomy noted. The heart size is mildly prominent. No dense consolidation, effusion, edema, failure or pneumothorax is noted. No acute osseous abnormality is otherwise identified. [facility] MONITORED CARDIAC REHAB SESS IONon 03-17-2019 ANGINA N [facility] ENDING HR 103 [facility] EXT - ADMIT TO CR DATE 01/31/2019 [facility] Max HR 118 [facility] Max Mets 4.4 [facility] MODE Treadmill [facility] RESTING HR 96 [facility] SESSION DATE 03/17/2019 [facility] SESSION [facility] SESSION LENGTH 0:45:52 [facility] SESSION LIST Session List: 03/10/2019N 03/12/2019N 03/13/2019N [id number]/17/2019Y Scheduled:4 Attended:1 Compliance:25% [facility] SESSION NUMBER 1 [facility] SESSION THR 100-106 [facility] STATUS Cardiac Phase II [facility] Stress test only, exerciseon 03-13-2019 Angina Index 0 [facility] Baseline BP 124/68 mmHg [facility] Baseline HR 81 bpm [facility] Sutherland Treadmill Score 6.00 [facility] Estimated workload 7.0 METS [facility] alth Exercise duration (min) 6 min [facility] Exercise duration (sec) 0 sec [facility] Percent of predicted max HR 65 % [facility] Post peak BP 148/70 mmHg [facility] Post peak HR [address] [facility] [address] Elevation (mm) 0 mm [facility] Target HR 147 bpm [facility] Stress test results reviewed. Agree with below findings. [place]land treadmill score not applicable. [facility] XR CHEST AP/PA AND LATon EXAMINATION: XR CHES T AP/PA AND LAT 02/25/2019 9:11 pm HISTORY: ORDERING SYSTEM PROVIDED HISTORY: SHORT OF BREATH, TECHNOLOGIST PROVIDED HISTORY: Illness/Other Reason for exam: sob, back pain Cancer History: u Surgery, RadiationHistory: yes Encounter Type: Initial Additional signs and symptoms: open heart surgery 5 weeks ago ORDERING SYSTEM PROVIDED DIAGNOSIS CODES: COMPARISON: 02/21/2019 FINDINGS: Mild vascular congestion centrally with bibasilar atelectasis or subtle infiltrate at the medial lung bases and lingula. Mild central bronchial thickening. Linear discoid atelectasis at the lateral lung base/lingula. The cardiomediastinal silhouette is unchanged with sternotomy wires again noted. There is no large pleural effusion. There is no pneumothorax. There is no acute osseous abnormality. [facility] Bibasilar atelectasi s with mild bronchial thickening. Central vascular prominence without edema. No consolidation, effusion, or pneumothorax. [facility]/ Workstation ID: [id number] [facility], Rad In ji Speech - 02/26/2019 2:44 AM EST EXAMINATION: XR CHEST AP/PA AND LAT 02/25/2019 9:11 pm HISTORY: ORDERING SYSTEM PROVIDED HISTORY: SHORT OF BREATH, TECHNOLOGIST PROVIDED HISTORY: Illness/Other Reason for exam: sob, back pain Cancer History: u Surgery, RadiationHistory: yes Encounter Type: Initial Additional signs and symptoms: open heart surgery 5 weeks ago ORDERING SYSTEM PROVIDED DIAGNOSIS CODES: COMPARISON: 02/21/2019 FINDINGS: Mild vascular congestion centrally with bibasilar atelectasis or subtle infiltrate at the medial lung bases and lingula. Mild central bronchial thickening. Linear discoid atelectasis at the lateral lung base/lingula. The cardiomediastinal silhouette is unchanged with sternotomy wires again noted. There is no large pleural effusion. There is no pneumothorax. There is no acute osseous abnormality. IMPRESSION: Bibasilar atelectasis with mild bronchial thickening. Central vascular prominence without edema. No consolidation, effusion, or pneumothorax. [facility] Workstation ID: [id number] [facility] Basic Metabolic Panelon 02-12 Anion gap [Moles/Vol] 9 mmol/L Low 10 - 2 0 mmol/L [facility] Calcium [Mass/Vol] 8.6 mg/dL 8.4 - 10. 2 mg/dL [facility] Chloride [Moles/Vol] 105 mmol/L 98 - 10 8 mmol/L [facility] Creatinine [Mass/Vol] 1.10 mg/dL 0.5 - 1.3 mg/dL [facility] GFR/1.73 sq M predicted among non-blacks MDRD (S/P/Bld) [Vol rate/Area] The eGFR should be used for monitoring renal function only and not for medication dosing. [facility] GFR/1.73 sq M.predicted CKD-EPI (S/P/Bld) [Vol rate/Area] 80 >=60 mL/min/1.7 3 m2 [facility] Glucose [Mass/Vol] 104 mg/dL High 65 - 99 mg/dL [facility] HCO3 [Moles/Vol] 28 mmol/L 21 - 32 mmol/L [facility] Interpretation and review of laboratory results Abnormal [facility] Potassium [Moles/Vol] 3.7 mmol/L 3.5 - 5.1 mmol/L [facility] Sodium [Moles/Vol] 138 mmol/L 135 - 145 mmol/L [facility] Urea nitrogen [Mass/Vol] 20 mg/dL 8 - 25 mg/dL [facility] Urea nitrogen/Creatinine [Mass ratio] 18.2 mg/mg [facility] CBC WITH AUTO DIFFERENTIALon 02-25-2019 Basophils (Bld) [#/Vol] 0.14 10*3/uL [facility] Basophils/100 WBC (Bld) 0.9 % [facility] Eosinophils (Bld) [#/Vol] 2.35 10*3/uL High [facility] Eosinophils/100 WBC (Bld) 15.2 % [facility] Erythrocyte distribution width (RBC) [Entitic vol] 14.8 % 11.6 - 14.8 % [facility] Hematocrit (Bld) [Volume fraction] 39.9 % Low 41 - 53 % [facility] Hemoglobin (Bld) [Mass/Vol] 13.0 g/dL Low 13.5 - 17.5 g/dL [facility] Immature granulocytes (Bld) [#/Vol] 0.14 10*3/uL [facility] Immature granulocytes/100 WBC (Bld) 0.90 % [facility] Comment on above: The IG parameter is the percentage of metamyelocytes, myelocytes, and promyelocytes. Interpretation and review of laboratory results Abnormal [facility] Lymphocytes (Bld) [#/Vol] 3.46 10*3/uL [facility] Lymphocytes/100 WBC (Bld) 22.4 % [facility] MCH (RBC) [Entitic mass] 26.5 pg 26 - 34 pg [facility] MCHC (RBC) [Mass/Vol] 32.6 g/dL 31 - 3 7 g/dL [facility] MCV (RBC) [Entitic vol] 81.4 fL 80 - 100 fL [facility] Monocytes (Bld) [#/Vol] 1.39 10*3/uL [facility] Monocytes/100 WBC (Bld) 9.0 % [facility] Neutrophils (Bld) [#/Vol] 7.99 10*3/uL [facility] Neutrophils/100 WBC (Bld) 51.6 % [facility] Nucleated RBC (Bld) [#/Vol] 0.00 10*3/uL [facility] Nucleated RBC/100 WBC (Bld) [Ratio] 0.0 % [facility] Platelet mean volume (Bld) [Entitic vol] 9.3 fL 9 - 15.5 fL [facility] Platelets (Bld) [#/Vol] 406 10*3/uL [facility] RBC (Bld) [#/Vol] 4.90 10*6/uL [facility]alth WBC (Bld) [#/Vol] 15.47 10*3/uL [facility] CT PULMONARY ARTERIESon 02-12 CT ANGIOGRAPHY CHEST WITH INTRAVENOUS CONTRAST ([id number]) CLINICAL HISTORY: ORDERING SYSTEM PROVIDED Dyspnea. S/P CABG, TECHNOLOGIST PROVIDED HISTORY: Illness/Other Reason for exam: open heart surgery 5 weeks ago, pt states feels like their is fluid in my lungs again. sob Encounter Type: Initial Additional signs and symptoms: n ORDERING SYSTEM PROVIDED DIAGNOSIS CODES: TECHNIQUE: Axial computed tomographic angiography images of the chest with intravenous contrast using pulmonary embolism protocol. Sagittal and coronal reformatted images were created and reviewed. This CT exam was performed using one or more of the following dose reduction techniques: automated exposure control, adjustment of the mA and/or kV according to patient size, and/or use of iterative reconstruction technique. MIP reconstructed images were created and reviewed. CONTRAST: IOPAMIDOL 76 % INTRAVENOUS SOLUTION - 75 mL, COMPARISON: February 02, 2019. FINDINGS: PULMONARY ARTERIES: NO evidence of pulmonary embolus is demonstrated in the central/main or visualized hilar pulmonary arteries. AORTA: The thoracic aorta demonstrates NO evidence of aneurysm or rupture. Minimal vascular calcification. LUNGS: RIGHT LUNG: The RIGHT lung demonstrates NO consolidations. Fibrotic appearing changes in the lingula and LEFT upper lobe. Minimal dependent changes/atelectasis.. Improved aeration overall in the LEFT lung base; however. PLEURAL SPACE: LEFT LUNG: Small pleural effusion. No pneumothorax. HEART: There is a small amount of pericardial fluid and/or thickening present. Postoperative changes are present consistent with CABG. The grafts are incompletely evaluated on this study. Calcification is present in the coronary arteries. The coronary arteries were otherwise not evaluated. Cardiac stent. No evidence of RV dysfunction. MEDIASTINUM: NO significantly/pathologica lly enlarged lymph nodes are demonstrated.Postsurgical changes. BONES/JOINTS: Postoperative changes in the sternum. The osteotomy appears slightly widened with some areas demonstrating irregular margins to the bone edges in the sternum. There is NO well-defined, complex fluid collection to suggest an abscess. NO definite evidence of acute compression or posterior element fractures. There is NO evidence of acute, nonspinal bony changes. No dislocation. SOFT TISSUES: NO evidence of acute findings. LYMPH NODES: See above. LIVER: Changes in the hepatic parenchyma consistent with fatty infiltration. NO definite/significant change from prior study when allowance is made for technical differences and positioning. Patchy enhancement posteriorly in the RIGHT lobe of the liver again demonstrated. Incomplete/limited evaluation. UPPER ABDOMEN: NO evidence of acute disease/changes. Incomplete/limited evaluation. OTHER FINDINGS: Postsurgical changes in the anterior midline. [facility] Interface, Rad In Fu ji Speechq - 02/25/2019 10:[address] ANGIOGRAPHY CHEST WITH INTRAVENOUS CONTRAST ([id number]) CLINICAL HISTORY: ORDERING SYSTEM PROVIDED Dyspnea. S/P CABG, TECHNOLOGIST PROVIDED HISTORY: Illness/Other Reason for exam: open heart surgery 5 weeks ago, pt states feels like their is fluid in my lungs again. sob Encounter Type: Initial Additional signs and symptoms: n ORDERING SYSTEM PROVIDED DIAGNOSIS CODES: TECHNIQUE: Axial computed tomographic angiography images of the chest with intravenous contrast using pulmonary embolism protocol. Sagittal and coronal reformatted images were created and reviewed. This CT exam was performed using one or more of the following dose reduction techniques: automated exposure control, adjustment of the mA and/or kV according to patient size, and/or use of iterative reconstruction technique. MIP reconstructed images were created and reviewed. CONTRAST: IOPAMIDOL 76 % INTRAVENOUS SOLUTION - 75 mL, COMPARISON: February 02, 2019. FINDINGS: PULMONARY ARTERIES: NO evidence of pulmonary embolus is demonstrated in the central/main or visualized hilar pulmonary arteries. AORTA: The thoracic aorta demonstrates NO evidence of aneurysm or rupture. Minimal vascular calcification. LUNGS: RIGHT LUNG: The RIGHT lung demonstrates NO consolidations. Fibrotic appearing changes in the lingula and LEFT upper lobe. Minimal dependent changes/atelectasis.. Improved aeration overall in the LEFT lung base; however. PLEURAL SPACE: LEFT LUNG: Small pleural effusion. No pneumothorax. HEART: There is a small amount of pericardial fluid and/or thickening present. Postoperative changes are present consistent with CABG. The grafts are incompletely evaluated on this study. Calcification is present in the coronary arteries. The coronary arteries were otherwise not evaluated. Cardiac stent. No evidence of RV dysfunction. MEDIASTINUM: NO significantly/pathologica lly enlarged lymph nodes are demonstrated.Postsurgical changes. BONES/JOINTS: Postoperative changes in the sternum. The osteotomy appears slightly widened with some areas demonstrating irregular margins to the bone edges in the sternum. There is NO well-defined, complex fluid collection to suggest an abscess. NO definite evidence of acute compression or posterior element fractures. There is NO evidence of acute, nonspinal bony changes. No dislocation. SOFT TISSUES: NO evidence of acute findings. LYMPH NODES: See above. LIVER: Changes in the hepatic parenchyma consistent with fatty infiltration. NO definite/significant change from prior study when allowance is made for technical differences and positioning. Patchy enhancement posteriorly in the RIGHT lobe of the liver again demonstrated. Incomplete/limited evaluation. UPPER ABDOMEN: NO evidence of acute disease/changes. Incomplete/limited evaluation. OTHER FINDINGS: Postsurgical changes in the anterior midline. IMPRESSION: - NO evidence of pulmonary embolus is demonstrated in the central/main or visualized hilar pulmonary arteries. - Postoperative changes in the sternum. The osteotomy appears slightly widened with some areas demonstrating irregular margins to the bone edges in the sternum. There is NO well-defined, complex fluid collection to suggest an abscess. Please correlate for history and/or physical findings. This can be a cause of continued chest pain. If further evaluation is felt to be indicated, follow-up should be considered with MRI. - Pericardial effusion and/or thickening as described. This is increased when compared with the previous examination. Please correlate with any known history and/or clinical findings. - LEFT LUNG: Small pleural effusion. This is mildly to moderately decreased when compared with the previous examination. - Fibrotic appearing changes in the lingula and LEFT upper lobe. Minimal dependent changes/atelectasis.. Improved aeration overall in the LEFT lung base; however. Workstation ID: [id number] [facility] - NO evidence of pulmonary embolus is demonstrated in the central/main or visualized hilar pulmonary arteries. - Postoperative changes in the sternum. The osteotomy appears slightly widened with some areas demonstrating irregular margins to the bone edges in the sternum. There is NO well-defined, complex fluid collection to suggest an abscess. Please correlate for history and/or physical findings. This can be a cause of continued chest pain. If further evaluation is felt to be indicated, follow-up should be considered with MRI. - Pericardial effusion and/or thickening as described. This is increased when compared with the previous examination. Please correlate with any known history and/or clinical findings. - LEFT LUNG: Small pleural effusion. This is mildly to moderately decreased when compared with the previous examination. - Fibrotic appearing changes in the lingula and LEFT upper lobe. Minimal dependent changes/atelectasis.. Improved aeration overall in the LEFT lung base; however. Workstation ID: [id number] [facility] ECG 12-LEADon 02-25-2019 Atrial Rate 83 BPM [facility] P [place] 55 degrees [facility] P-R Interval 164 ms [facility] Q-T Interval 360 ms [facility] QRS Duration 88 ms [facility] QTC Calculation (Bezet) 423 ms [facility] R [place] 24 degrees [facility] T [place] 98 degrees [facility] Ventricular Rate 83 BPM [facility] Normal sinus rhythm Possible Left atrial enlargement Anteroseptal infarct , age undetermined T wave abnormality, consider lateral ischemia Abnormal ECG ECG Cart Interpretation see physician note for interpretation. Confirmed by Brandy Kc ([id number]) on 02/25/2019 10:46:50 PM [facility] NT Pro BNPon 02-25-2019 Interpretation and review of laboratory results Normal [facility] Natriuretic peptide.B prohormone N-Terminal [Mass/Vol] 227 pg/mL 0 - 300 pg/mL [facility] Pride Study Cut-offs Rule In: < /= 50 Years >450 pg/mL 51 Years - 75 Years >900 pg/mL 76 Years - 99 Years >1800 pg/mL Rule Out: All patients <300 pg/mL [facility] Otheron 02-25-2019 Extra Tube Hold for add-ons. [facility] Comment on above: Auto resulted. PT/INR (if on Coumadin)on INR Coag (PPP) [Relative time] 1.0 {INR} [facility] Interpretation and review of laboratory results Normal [facility] PT Coag (PPP) [Time] 12.5 s [facility] During the induction phase of oral anticoagulation, the INR may not reflect the anticoagulation status of the patient. Therapeutic ranges for INR's are: Most clinical situations: INR 2.0-3.0 Mechanical Prosthetic Valve: INR 2.5-3.5 Critical: INR >5.0 [facility] TROPONINon 02-25-2019 Troponin I.cardiac [Mass/Vol] Normal [facility] Troponin I.cardiac [Mass/Vol] ng/mL <=45 ng/L [facility] XR CHEST AP/PA AND LATon Mild improved aerati on of the left lung base, compared to 02/13/2019. Small residual left basilar pleural effusion. Recent CABG with stable mediastinal contours. ST[employer] Workstation ID: [id number] [facility] EXAMINATION: XR CHES T AP/PA AND LAT HISTORY: ORDERING SYSTEM PROVIDED HISTORY: s/p CABG, TECHNOLOGIST PROVIDED HISTORY: Illness/Other Reason for exam: wekaness sob Cancer History: u Surgery, RadiationHistory: yes Encounter Type: Subsequent/Follow-up Additional signs and symptoms: 4 wks s/p cabg ORDERING SYSTEM PROVIDED DIAGNOSIS CODES: Z95.1 S/P CABG (coronary artery bypass graft) COMPARISON: 02/13/2019. FINDINGS: Two-view chest x-ray. No pneumothorax. No focal airspace consolidation. Small left basilar pleural effusion. Heart is prominent in size. Postoperative changes of median sternotomy and CABG. Mediastinal contours are stable. [facility] Interface, Rad In Fu ji Speechq - 02/21/2019 5:32 PM EST EXAMINATION: XR CHEST AP/PA AND LAT HISTORY: ORDERING SYSTEM PROVIDED HISTORY: s/p CABG, TECHNOLOGIST PROVIDED HISTORY: Illness/Other Reason for exam: wekaness sob Cancer History: u Surgery, RadiationHistory: yes Encounter Type: Subsequent/Follow-up Additional signs and symptoms: 4 wks s/p cabg ORDERING SYSTEM PROVIDED DIAGNOSIS CODES: Z95.1 S/P CABG (coronary artery bypass graft) COMPARISON: 02/13/2019. FINDINGS: Two-view chest x-ray. No pneumothorax. No focal airspace consolidation. Small left basilar pleural effusion. Heart is prominent in size. Postoperative changes of median sternotomy and CABG. Mediastinal contours are stable. IMPRESSION: Mild improved aeration of the left lung base, compared to 02/13/2019. Small residual left basilar pleural effusion. Recent CABG with stable mediastinal contours. ST/trn Workstation ID: [id number] [facility] XR CHEST AP/PA AND LATon No significant inter tatiana change compared to 02/06/2019. Small bibasilar pleural effusions with left basilar atelectasis. Recent CABG with stable mediastinal contours. ST/trw Workstation ID: [id number] [facility] EXAMINATION: XR CHES T AP/PA AND LAT HISTORY: ORDERING SYSTEM PROVIDED HISTORY: s/p cabg, TECHNOLOGIST PROVIDED HISTORY: Illness/Other Reason for exam: 3 wks s/p cabg Cancer History: u Surgery, RadiationHistory: yes Encounter Type: Subsequent/Follow-up Additional signs and symptoms: sob ORDERING SYSTEM PROVIDED DIAGNOSIS CODES: Z95.1 S/P CABG x 1 COMPARISON: 02/06/2019. FINDINGS: Two-view chest x-ray. No pneumothorax. Mild left basilar atelectasis. Small bibasilar pleural effusions. Prominent heart size. Postoperative changes of median sternotomy and CABG. Stable mediastinal contours. [facility] Interface, Rad In Fu ji Speechq - 02/13/2019 7:06 PM EST EXAMINATION: XR CHEST AP/PA AND LAT HISTORY: ORDERING SYSTEM PROVIDED HISTORY: s/p cabg, TECHNOLOGIST PROVIDED HISTORY: Illness/Other Reason for exam: 3 wks s/p cabg Cancer History: u Surgery, RadiationHistory: yes Encounter Type: Subsequent/Follow-up Additional signs and symptoms: sob ORDERING SYSTEM PROVIDED DIAGNOSIS CODES: Z95.1 S/P CABG x 1 COMPARISON: 02/06/2019. FINDINGS: Two-view chest x-ray. No pneumothorax. Mild left basilar atelectasis. Small bibasilar pleural effusions. Prominent heart size. Postoperative changes of median sternotomy and CABG. Stable mediastinal contours. IMPRESSION: No significant interval change compared to 02/06/2019. Small bibasilar pleural effusions with left basilar atelectasis. Recent CABG with stable mediastinal contours. ST/trw Workstation ID: [id number] [facility] XR CHEST AP/PA AND LATon Slight fluid and atelectasis suggested in the left lung base showing improvement from the prior study. Workstation ID: [id number] [facility] EXAMINATION: XR CHES T AP/PA AND LAT 02/06/2019 12:39 pm HISTORY: ORDERING SYSTEM PROVIDED HISTORY: S/P CABG and left thoracentesis, TECHNOLOGIST PROVIDED HISTORY: Illness/Other Reason for exam: 2 wks s/p cabg Cancer History: u Surgery, RadiationHistory: yes Encounter Type: Subsequent/Follow-up Additional signs and symptoms: 3 days post thoracentesis ORDERING SYSTEM PROVIDED DIAGNOSIS CODES: Z95.1 S/P CABG (coronary artery bypass graft) COMPARISON: Portable chest from 02/04/2019. FINDINGS: Sternal wires and postsurgical mediastinal clips are noted. Trachea, mediastinum, heart size, diaphragm and bony elements are intact. No pneumothorax is noted. There appears to be slight atelectasis and minimal fluid in the left lung base. Lung markings appear to be unremarkable. [facility], Rad In Fu ji Speechq - 02/06/2019 12:53 PM EST EXAMINATION: XR CHEST AP/PA AND LAT 02/06/2019 12:39 pm HISTORY: ORDERING SYSTEM PROVIDED HISTORY: S/P CABG and left thoracentesis, TECHNOLOGIST PROVIDED HISTORY: Illness/Other Reason for exam: 2 wks s/p cabg Cancer History: u Surgery, RadiationHistory: yes Encounter Type: Subsequent/Follow-up Additional signs and symptoms: 3 days post thoracentesis ORDERING SYSTEM PROVIDED DIAGNOSIS CODES: Z95.1 S/P CABG (coronary artery bypass graft) COMPARISON: Portable chest from 02/04/2019. FINDINGS: Sternal wires and postsurgical mediastinal clips are noted. Trachea, mediastinum, heart size, diaphragm and bony elements are intact. No pneumothorax is noted. There appears to be slight atelectasis and minimal fluid in the left lung base. Lung markings appear to be unremarkable. IMPRESSION: Slight fluid and atelectasis suggested in the left lung base showing improvement from the prior study. Workstation ID: [id number] [facility] Basic Metabolic Panelon 01-13 Anion gap [Moles/Vol] 9 mmol/L Low 10 - 2 0 mmol/L [facility] Calcium [Mass/Vol] 8.6 mg/dL 8.4 - 10. 2 mg/dL [facility] Chloride [Moles/Vol] 106 mmol/L 98 - 10 8 mmol/L [facility] Creatinine [Mass/Vol] 1.06 mg/dL 0.5 - 1.3 mg/dL [facility] GFR/1.73 sq M predicted among non-blacks MDRD (S/P/Bld) [Vol rate/Area] The eGFR should be used for monitoring renal function only and not for medication dosing. [facility] GFR/1.73 sq M.predicted CKD-EPI (S/P/Bld) [Vol rate/Area] 83 >=60 mL/min/1.7 3 m2 [facility] Glucose [Mass/Vol] 106 mg/dL High 65 - 99 mg/dL [facility] HCO3 [Moles/Vol] 27 mmol/L 21 - 32 mmol/L [facility] Interpretation and review of laboratory results Abnormal [facility] Potassium [Moles/Vol] 4.0 mmol/L 3.5 - 5.1 mmol/L [facility] Sodium [Moles/Vol] 138 mmol/L 135 - 145 mmol/L [facility] Urea nitrogen [Mass/Vol] 27 mg/dL High 8 - 25 mg/dL [facility] Urea nitrogen/Creatinine [Mass ratio] 25.5 mg/mg High [facility] CBCon 02-04-2019 Erythrocyte distribution width (RBC) [Entitic vol] 14.3 % 11.6 - 14.8 % [facility] Hematocrit (Bld) [Volume fraction] 35.4 % Low 41 - 53 % [facility] Hemoglobin (Bld) [Mass/Vol] 11.5 g/dL Low 13.5 - 17.5 g/dL [facility] Interpretation and review of laboratory results Abnormal [facility] MCH (RBC) [Entitic mass] 27.8 pg 26 - 34 pg [facility] MCHC (RBC) [Mass/Vol] 32.5 g/dL 31 - 3 7 g/dL [facility] MCV (RBC) [Entitic vol] 85.5 fL 80 - 100 fL [facility] Nucleated RBC (Bld) [#/Vol] 0.00 10*3/uL [facility] Nucleated RBC/100 WBC (Bld) [Ratio] 0.0 % [facility] Platelet mean volume (Bld) [Entitic vol] 8.6 fL Low 9 - 15.5 fL [facility] Platelets (Bld) [#/Vol] 514 10*3/uL High [facility] RBC (Bld) [#/Vol] 4.14 10*6/uL Low [facility] WBC (Bld) [#/Vol] 12.92 10*3/uL High [facility] POC Glucoseon 02-04-2019 Glucose [Mass/Vol] 107 mg/dL High 65 - 99 mg/dL [facility] Interpretation and review of laboratory results Abnormal [facility] XR Chest 1 Viewon 02-04-2019 Improving congestive pattern and lung volumes with persistent consolidation and small effusion in the left base. Workstation ID: [id number] [facility] EXAMINATION: XR CHES T PA/AP HISTORY: post-op COMPARISON: Chest radiograph, yesterday at 11:49 a.m. FINDINGS: Cardiomediastinal silhouette is normal. Improved lung volumes and diminishing vascular congestion. Persistent atelectasis and small effusion at the left base. No large right pleural effusion. No acute osseous abnormality. Prior median sternotomy. [facility] Sharda, Keith In Fu ji Speechq - 02/04/2019 5:31 AM EST EXAMINATION: XR CHEST PA/AP HISTORY: post-op COMPARISON: Chest radiograph, yesterday at 11:49 a.m. FINDINGS: Cardiomediastinal silhouette is normal. Improved lung volumes and diminishing vascular congestion. Persistent atelectasis and small effusion at the left base. No large right pleural effusion. No acute osseous abnormality. Prior median sternotomy. IMPRESSION: Improving congestive pattern and lung volumes with persistent consolidation and small effusion in the left base. Workstation ID: [id number] [facility] Basic Metabolic Panelon 01-13 Anion gap [Moles/Vol] 11 mmol/L 10 - 2 0 mmol/L [facility] Calcium [Mass/Vol] 9.0 mg/dL 8.4 - 10. 2 mg/dL [facility] Chloride [Moles/Vol] 104 mmol/L 98 - 10 8 mmol/L [facility] Creatinine [Mass/Vol] 1.03 mg/dL 0.5 - 1.3 mg/dL [facility] GFR/1.73 sq M predicted among non-blacks MDRD (S/P/Bld) [Vol rate/Area] The eGFR should be used for monitoring renal function only and not for medication dosing. [facility] GFR/1.73 sq M.predicted CKD-EPI (S/P/Bld) [Vol rate/Area] 86 >=60 mL/min/1.7 3 m2 [facility] Glucose [Mass/Vol] 109 mg/dL High 65 - 99 mg/dL [facility] HCO3 [Moles/Vol] 26 mmol/L 21 - 32 mmol/L [facility] Interpretation and review of laboratory results Abnormal [facility] Potassium [Moles/Vol] 4.1 mmol/L 3.5 - 5.1 mmol/L [facility] Sodium [Moles/Vol] 137 mmol/L 135 - 145 mmol/L [facility] Urea nitrogen [Mass/Vol] 26 mg/dL High 8 - 25 mg/dL [facility] Urea nitrogen/Creatinine [Mass ratio] 25.2 mg/mg High [facility] CBCon 02-03-2019 Erythrocyte distribution width (RBC) [Entitic vol] 14.3 % 11.6 - 14.8 % [facility] Hematocrit (Bld) [Volume fraction] 36.8 % Low 41 - 53 % [facility] Hemoglobin (Bld) [Mass/Vol] 12.1 g/dL Low 13.5 - 17.5 g/dL [facility] Interpretation and review of laboratory results Abnormal [facility] MCH (RBC) [Entitic mass] 27.9 pg 26 - 34 pg [facility] MCHC (RBC) [Mass/Vol] 32.9 g/dL 31 - 3 7 g/dL [facility] MCV (RBC) [Entitic vol] 84.8 fL 80 - 100 fL [facility] Nucleated RBC (Bld) [#/Vol] 0.00 10*3/uL [facility] Nucleated RBC/100 WBC (Bld) [Ratio] 0.0 % [facility] Platelet mean volume (Bld) [Entitic vol] 8.6 fL Low 9 - 15.5 fL [facility] Platelets (Bld) [#/Vol] 525 10*3/uL High [facility] RBC (Bld) [#/Vol] 4.34 10*6/uL Low [facility]alth WBC (Bld) [#/Vol] 14.25 10*3/uL [facility] POC Glucoseon 02-03-2019 Glucose [Mass/Vol] 117 mg/dL High 65 - 99 mg/dL [facility] Interpretation and review of laboratory results Abnormal [facility] Glucose [Mass/Vol] 111 mg/dL High 65 - 99 mg/dL [facility] Interpretation and review of laboratory results Abnormal [facility] VR Thoracentesis Lefton -2 1. Small left pleura l effusion 2. Successful ultrasound-guided left thoracentesis. Approximately 250 mL of blood-tinged fluid was removed from the left pleural space. A sample of fluid was placed in the custody of the patient's nurse for potential laboratory analysis to be ordered by the primary service. Workstation ID: [id number] [facility] EXAMINATION: ULTRASOUND-GUIDED LEFT THORACENTESIS HISTORY: Recent coronary artery bypass grafting. Left pleural effusion. EXCAVATING CONTRACTOR(S): Gilmer Zelaya MD COMPARISON: Chest radiograph dated 02/03/2019 CONTRAST: None RADIATION DOSE: None MODERATE SEDATION: None MEDICATIONS: Lidocaine 1% 10 mL SQ COMPLICATIONS: None TECHNIQUE AND FINDINGS: The procedure, risks, benefits and alternatives were discussed in detail and written informed consent was obtained. At time-out was performed to verify correct patient and procedure. The patient was monitored by the interventional radiology nurse at all times. The patient was seated on the edge of the bed, leaning forward. Limited ultrasound images of the left hemithorax demonstrated a small left pleural effusion. An ultrasound image was saved and archived in PACS. An appropriate ultrasound window for a posterior intercostal approach into the left pleural space was identified. The overlying skin was marked, prepped, and draped in usual sterile fashion. Local anesthesia was achieved with 1% lidocaine. Under ultrasound guidance, a 5 [employer] slip catheter and introducer needle were advanced into the left pleural space as confirmed by return of pleural fluid. The slip catheter was advanced over the needle which was removed. Approximately 250 mL of blood-tinged fluid was collected from the left pleural space. The catheter was removed and hemostasis was achieved with focal compression. The puncture site was dressed with a bandage. There were no immediate complications and the patient tolerated the procedure well. [facility] Interface, Rad In Fu ji Speechq - 02/03/2019 10:12 PM EST EXAMINATION: ULTRASOUND-GUIDED LEFT THORACENTESIS HISTORY: Recent coronary artery bypass grafting. Left pleural effusion. EXCAVATING CONTRACTOR(S): Gilmer Zelaya MD COMPARISON: Chest radiograph dated 02/03/2019 CONTRAST: None RADIATION DOSE: None MODERATE SEDATION: None MEDICATIONS: Lidocaine 1% 10 mL SQ COMPLICATIONS: None TECHNIQUE AND FINDINGS: The procedure, risks, benefits and alternatives were discussed in detail and written informed consent was obtained. At time-out was performed to verify correct patient and procedure. The patient was monitored by the interventional radiology nurse at all times. The patient was seated on the edge of the bed, leaning forward. Limited ultrasound images of the left hemithorax demonstrated a small left pleural effusion. An ultrasound image was saved and archived in PACS. An appropriate ultrasound window for a posterior intercostal approach into the left pleural space was identified. The overlying skin was marked, prepped, and draped in usual sterile fashion. Local anesthesia was achieved with 1% lidocaine. Under ultrasound guidance, a 5 [employer] slip catheter and introducer needle were advanced into the left pleural space as confirmed by return of pleural fluid. The slip catheter was advanced over the needle which was removed. Approximately 250 mL of blood-tinged fluid was collected from the left pleural space. The catheter was removed and hemostasis was achieved with focal compression. The puncture site was dressed with a bandage. There were no immediate complications and the patient tolerated the procedure well. IMPRESSION: 1. Small left pleural effusion 2. Successful ultrasound-guided left thoracentesis. Approximately 250 mL of blood-tinged fluid was removed from the left pleural space. A sample of fluid was placed in the custody of the patient's nurse for potential laboratory analysis to be ordered by the primary service. Workstation ID: [id number] [facility] XR Chest 1 Viewon 02-03-2019 No pneumothorax stat us post left thoracentesis. RPS/trw Workstation ID: [id number] [facility] EXAMINATION: XR CHES T PA/AP 02/03/2019 11:53 AM HISTORY: ORDERING SYSTEM PROVIDED HISTORY: THORACENTESIS, TECHNOLOGIST PROVIDED HISTORY: Illness/Other Reason for exam: S/P LEFT THORACENTESIS, 250ML. S/P CABG Cancer History: u Surgery, RadiationHistory: yes Encounter Type: Subsequent/Follow-up Additional signs and symptoms: NA COMPARISON: 02/03/2019. FINDINGS: A single, portable, upright frontal view of the chest was obtained. Cardiac silhouette is enlarged, similar to prior exam. CABG changes are present. No pneumothorax or pulmonary vascular congestion. Improved aeration in the left lung base with residual small left pleural effusion and strandy atelectasis. [facility] Interface, Rad In Fu ji Speechq - 02/03/2019 3:15 PM EST EXAMINATION: XR CHEST PA/AP 02/03/2019 11:53 AM HISTORY: ORDERING SYSTEM PROVIDED HISTORY: THORACENTESIS, TECHNOLOGIST PROVIDED HISTORY: Illness/Other Reason for exam: S/P LEFT THORACENTESIS, 250ML. S/P CABG Cancer History: u Surgery, RadiationHistory: yes Encounter Type: Subsequent/Follow-up Additional signs and symptoms: NA COMPARISON: 02/03/2019. FINDINGS: A single, portable, upright frontal view of the chest was obtained. Cardiac silhouette is enlarged, similar to prior exam. CABG changes are present. No pneumothorax or pulmonary vascular congestion. Improved aeration in the left lung base with residual small left pleural effusion and strandy atelectasis. IMPRESSION: No pneumothorax status post left thoracentesis. RPS/trw Workstation ID: [id number] [facility] Interface, Rad In Fu ji Speechq - 02/03/2019 9:29 AM EST EXAMINATION: XR CHEST PA/AP 02/03/2019 5:07 am HISTORY: ORDERING SYSTEM PROVIDED HISTORY: post-op, TECHNOLOGIST PROVIDED HISTORY: Injury/Trauma Reason for exam: post op Cancer History: u Surgery, RadiationHistory: yes Encounter Type: Initial Mechanism of injury: . ORDERING SYSTEM PROVIDED DIAGNOSIS CODES: COMPARISON: 02/02/2019. FINDINGS: They are low lung volumes. Cardiomegaly stable. There is again left basal pleural effusion with atelectasis and/or infiltrate that is similar. The right lung is clear. IMPRESSION: 1. Low lung volumes. 2. Left basal effusion with atelectasis and/or infiltrate similar. 3. Mild cardiomegaly. RSR/hb Workstation ID: [id number] [facility] EXAMINATION: XR CHES T PA/AP 02/03/2019 5:07 am HISTORY: ORDERING SYSTEM PROVIDED HISTORY: post-op, TECHNOLOGIST PROVIDED HISTORY: Injury/Trauma Reason for exam: post op Cancer History: u Surgery, RadiationHistory: yes Encounter Type: Initial Mechanism of injury: . ORDERING SYSTEM PROVIDED DIAGNOSIS CODES: COMPARISON: 02/02/2019. FINDINGS: They are low lung volumes. Cardiomegaly stable. There is again left basal pleural effusion with atelectasis and/or infiltrate that is similar. The right lung is clear. [facility] 1. Low lung volumes. 2. Left basal effusion with atelectasis and/or infiltrate similar. 3. Mild cardiomegaly. RSR/hb Workstation ID: [id number] [facility] CBCon 02-02-2019 Erythrocyte distribution width (RBC) [Entitic vol] 14.4 % 11.6 - 14.8 % [facility] Hematocrit (Bld) [Volume fraction] 34.8 % Low 41 - 53 % [facility] Hemoglobin (Bld) [Mass/Vol] 11.4 g/dL Low 13.5 - 17.5 g/dL [facility] Interpretation and review of laboratory results Abnormal [facility] MCH (RBC) [Entitic mass] 27.9 pg 26 - 34 pg [facility] MCHC (RBC) [Mass/Vol] 32.8 g/dL 31 - 3 7 g/dL [facility] MCV (RBC) [Entitic vol] 85.3 fL 80 - 100 fL [facility] Nucleated RBC (Bld) [#/Vol] 0.02 10*3/uL High [facility] Nucleated RBC/100 WBC (Bld) [Ratio] 0.1 % [facility] Platelet mean volume (Bld) [Entitic vol] 8.9 fL Low 9 - 15.5 fL [facility] Platelets (Bld) [#/Vol] 555 10*3/uL High [facility] RBC (Bld) [#/Vol] 4.08 10*6/uL [facility] WBC (Bld) [#/Vol] 14.43 10*3/uL [facility] CT PULMONARY ARTERIESon 12-2 1. [id number] effusion with mild atelectasis in the left lung base. Remaining lungs show hyperaeration with mild chronic changes. 2. No evidence for acute mediastinal process or pulmonary embolism, it should be noted that there was limited opacification of the pulmonary arterial tree. 3. No evidence for lymphadenopathy. 4. Chronic and postsurgical changes noted. Workstation ID: [id number] [facility] EXAMINATION: CT PULM ONARY ARTERIES HISTORY: ORDERING SYSTEM PROVIDED HISTORY: PE suspected, low pretest prob; S/P CABG, increased dyspnea, TECHNOLOGIST PROVIDED HISTORY: Illness/Other Reason for exam: cp, recent open heart surgery Encounter Type: Initial Additional signs and symptoms: n/a ORDERING SYSTEM PROVIDED DIAGNOSIS CODES: COMPARISON: Two-view chest from , February 02, [address] abdomen pelvis from 01/02/2015. TECHNIQUE: CT angiography of the pulmonary arteries following the administration of intravenous contrast. Coronal and sagittal MIP images were performed. Dose reduction techniques were achieved by using automated exposure control and/or adjustment of mA and/or kV according to patient size and/or use of iterative reconstruction technique. CONTRAST: IOPAMIDOL 76 % INTRAVENOUS SOLUTION - 75 mL, FINDINGS: Soft tissues of the base of the neck and supraclavicular regions are unremarkable. Limited views of the thyroid gland are unremarkable. The trachea and esophagus appear to be unremarkable. GE junction is unremarkable. Limited views of the upper abdomen show fatty changes of the liver. Posterior aspect of the right lobe of the liver there appears to be a stable hepatics cavernous hemangioma. Heart size is not enlarged. Slight pericardial effusion is suggested inferiorly. No obvious acute mediastinal process is noted. Sternal wires and mediastinal clips indicate previous cardiothoracic surgery. Coronary arterial disease is noted with stenting. There is limited opacification of the pulmonary arterial tree. No obvious large pulmonary embolism is noted. The right and left axillary regions show no enlarged lymph nodes. The mediastinal and hilar regions show no gross lymphadenopathy. There are few slightly prominent lymph nodes in the mediastinum but within the limits of normal. No pneumothorax is noted. The lungs show good aeration. There is mild atelectasis and [id number] effusion in the left lung base. Slight chronic changes are noted off the hilar and infrahilar regions. No suspicious nodule is noted. Bone density is unremarkable. No bony lesions are noted throughout. No advanced degenerative changes are noted diffusely. No obvious bony lesions are noted. The subcutaneous tissues are unremarkable. [facility], Rad In Fu ji Speechq - 02/02/2019 2:26 PM EST EXAMINATION: CT PULMONARY ARTERIES HISTORY: ORDERING SYSTEM PROVIDED HISTORY: PE suspected, low pretest prob; S/P CABG, increased dyspnea, TECHNOLOGIST PROVIDED HISTORY: Illness/Other Reason for exam: cp, recent open heart surgery Encounter Type: Initial Additional signs and symptoms: n/a ORDERING SYSTEM PROVIDED DIAGNOSIS CODES: COMPARISON: Two-view chest from , February 02, [address] abdomen pelvis from 01/02/2015. TECHNIQUE: CT angiography of the pulmonary arteries following the administration of intravenous contrast. Coronal and sagittal MIP images were performed. Dose reduction techniques were achieved by using automated exposure control and/or adjustment of mA and/or kV according to patient size and/or use of iterative reconstruction technique. CONTRAST: IOPAMIDOL 76 % INTRAVENOUS SOLUTION - 75 mL, FINDINGS: Soft tissues of the base of the neck and supraclavicular regions are unremarkable. Limited views of the thyroid gland are unremarkable. The trachea and esophagus appear to be unremarkable. GE junction is unremarkable. Limited views of the upper abdomen show fatty changes of the liver. Posterior aspect of the right lobe of the liver there appears to be a stable hepatics cavernous hemangioma. Heart size is not enlarged. Slight pericardial effusion is suggested inferiorly. No obvious acute mediastinal process is noted. Sternal wires and mediastinal clips indicate previous cardiothoracic surgery. Coronary arterial disease is noted with stenting. There is limited opacification of the pulmonary arterial tree. No obvious large pulmonary embolism is noted. The right and left axillary regions show no enlarged lymph nodes. The mediastinal and hilar regions show no gross lymphadenopathy. There are few slightly prominent lymph nodes in the mediastinum but within the limits of normal. No pneumothorax is noted. The lungs show good aeration. There is mild atelectasis and [id number]-cxnzdsog effusion in the left lung base. Slight chronic changes are noted off the hilar and infrahilar regions. No suspicious nodule is noted. Bone density is unremarkable. No bony lesions are noted throughout. No advanced degenerative changes are noted diffusely. No obvious bony lesions are noted. The subcutaneous tissues are unremarkable. IMPRESSION: 1. Aysy-gp-okcoogmd effusion with mild atelectasis in the left lung base. Remaining lungs show hyperaeration with mild chronic changes. 2. No evidence for acute mediastinal process or pulmonary embolism, it should be noted that there was limited opacification of the pulmonary arterial tree. 3. No evidence for lymphadenopathy. 4. Chronic and postsurgical changes noted. Workstation ID: [id number] [facility] POC ARTERIAL BLOOD GAS PANEL -AKIBrennan Srini Wayne 02-02-2019 Alveolar-arterial oxygen Partial pressure difference 28.2 mm Hg [facility] Base excess Calc (Bld) [Moles/Vol] 3.6 mmol/L High [facility] Breath rate setting Ventilator synchronized intermittent mandatory 0 [facility] CO2 (Bld) [Partial pressure] 38.6 mm[Hg] [facility] HCO3 (Bld) [Moles/Vol] 27.6 mmol/L High 22 - 26 mmol/L [facility] Hematocrit (BldA) [Volume fraction] 36.8 % Low 41 - 53 % [facility] Hemoglobin (Bld) [Mass/Vol] 12.0 g/dL Low 13.5 - 18 g/dL [facility] Inhaled oxygen concentration 21 % [facility] Interpretation and review of laboratory results Abnormal [facility] Oxygen (Bld) [Partial pressure] 72 mm[Hg] Low [facility] PEEP Respiratory system 0 [facility] pH (Bld) 7.46 [pH] High [facility] SaO2% (BldA) [Mass fraction] 95.1 % 92 - 99 % [facility] Specimen source Nom (Unsp spec) Radial, left [facility] Tidal volume setting Ventilator 0 [facility] POC Glucoseon 02-02-2019 Glucose [Mass/Vol] 93 mg/dL 65 - 99 mg/dL [facility] Interpretation and review of laboratory results Normal [facility] XR CHEST AP/PA AND LATon 1. Interval developm ent of left basilar consolidation with left pleural effusion. 2. Trace right pleural effusion. [employer] Workstation ID: [id number] [facility] EXAMINATION: TWO-VIE W CHEST HISTORY: ORDERING SYSTEM PROVIDED HISTORY: Chest pain, unspecified type, TECHNOLOGIST PROVIDED HISTORY: Illness/Other Reason for exam: left side chest pain, sob Cancer History: u Surgery, RadiationHistory: yes Encounter Type: Initial Additional signs and symptoms: cardiac sx 1 week ago ORDERING SYSTEM PROVIDED DIAGNOSIS CODES: R07.9 Chest pain, unspecified type COMPARISON: Chest x-ray 01/29/2019, 01/31/2019. FINDINGS: Frontal and lateral views of the chest are submitted. Cardiac silhouette is stable. Left basilar consolidation and pleural effusion are present. Small right pleural effusion is also seen. Pulmonary vascular markings are normal. No acute osseous lesions are seen. [facility] Interface, Rad In Fu ji Speechq - 02/02/2019 3:11 PM EST EXAMINATION: TWO-VIEW CHEST HISTORY: ORDERING SYSTEM PROVIDED HISTORY: Chest pain, unspecified type, TECHNOLOGIST PROVIDED HISTORY: Illness/Other Reason for exam: left side chest pain, sob Cancer History: u Surgery, RadiationHistory: yes Encounter Type: Initial Additional signs and symptoms: cardiac sx 1 week ago ORDERING SYSTEM PROVIDED DIAGNOSIS CODES: R07.9 Chest pain, unspecified type COMPARISON: Chest x-ray 01/29/2019, 01/31/2019. FINDINGS: Frontal and lateral views of the chest are submitted. Cardiac silhouette is stable. Left basilar consolidation and pleural effusion are present. Small right pleural effusion is also seen. Pulmonary vascular markings are normal. No acute osseous lesions are seen. IMPRESSION: 1. Interval development of left basilar consolidation with left pleural effusion. 2. Trace right pleural effusion. [employer] Workstation ID: [id number] [facility] XR CHEST AP/PA AND LATon Pulmonary venous congestion with small pleural effusions. Recent CABG with stable mediastinal contours. ST/ Workstation ID: [id number] [facility] EXAMINATION: XR CHES T AP/PA AND LAT HISTORY: ORDERING SYSTEM PROVIDED HISTORY: s/p cabg, TECHNOLOGIST PROVIDED HISTORY: Illness/Other Reason for exam: 1 wk s/p cabg Cancer History: u Surgery, RadiationHistory: yes Encounter Type: Subsequent/Follow-up Additional signs and symptoms: coughed last night and felt pop in chest ORDERING SYSTEM PROVIDED DIAGNOSIS CODES: Z95.1 S/P CABG (coronary artery bypass graft) COMPARISON: 01/29/2019 FINDINGS: Two-view chest x-ray. No pneumothorax. Low lung volumes. Pulmonary venous congestion. Small bibasilar pleural effusions. Cardiomegaly. Postoperative changes of median sternotomy and CABG. Stable mediastinal contours. [facility] Interface, Rad In Luis Fernando ji Speechq - 01/31/2019 7:07 PM EST EXAMINATION: XR CHEST AP/PA AND LAT HISTORY: ORDERING SYSTEM PROVIDED HISTORY: s/p cabg, TECHNOLOGIST PROVIDED HISTORY: Illness/Other Reason for exam: 1 wk s/p cabg Cancer History: u Surgery, RadiationHistory: yes Encounter Type: Subsequent/Follow-up Additional signs and symptoms: coughed last night and felt pop in chest ORDERING SYSTEM PROVIDED DIAGNOSIS CODES: Z95.1 S/P CABG (coronary artery bypass graft) COMPARISON: 01/29/2019 FINDINGS: Two-view chest x-ray. No pneumothorax. Low lung volumes. Pulmonary venous congestion. Small bibasilar pleural effusions. Cardiomegaly. Postoperative changes of median sternotomy and CABG. Stable mediastinal contours. IMPRESSION: Pulmonary venous congestion with small pleural effusions. Recent CABG with stable mediastinal contours. / Workstation ID: [id number] [facility] Basic Metabolic Panelon 01-12 Anion gap [Moles/Vol] 11 mmol/L 10 - 2 0 mmol/L [facility] Calcium [Mass/Vol] 8.6 mg/dL 8.4 - 10. 2 mg/dL [facility] Chloride [Moles/Vol] 105 mmol/L 98 - 10 8 mmol/L [facility] Creatinine [Mass/Vol] 1.08 mg/dL 0.5 - 1.3 mg/dL [facility] GFR/1.73 sq M.predicted CKD-EPI (S/P/Bld) [Vol rate/Area] 81 >=60 mL/min/1.7 3 m2 [facility] Glucose [Mass/Vol] 101 mg/dL High 65 - 99 mg/dL [facility] HCO3 [Moles/Vol] 26 mmol/L 21 - 32 mmol/L [facility] Interpretation and review of laboratory results Abnormal [facility] Potassium [Moles/Vol] 4.2 mmol/L 3.5 - 5.1 mmol/L [facility] Sodium [Moles/Vol] 138 mmol/L 135 - 145 mmol/L [facility] Urea nitrogen [Mass/Vol] 29 mg/dL High 8 - 25 mg/dL [facility] Urea nitrogen/Creatinine [Mass ratio] 26.9 mg/mg High [facility] The eGFR should be u sed for monitoring renal function only and not for medication dosing. [facility] CBCon 01-29-2019 Erythrocyte distribution width (RBC) [Entitic vol] 14.2 % 11.6 - 14.8 % [facility] Hematocrit (Bld) [Volume fraction] 33.7 % Low 41 - 53 % [facility] Hemoglobin (Bld) [Mass/Vol] 10.9 g/dL Low 13.5 - 17.5 g/dL [facility] Interpretation and review of laboratory results Abnormal [facility] MCH (RBC) [Entitic mass] 27.9 pg 26 - 34 pg [facility] MCHC (RBC) [Mass/Vol] 32.3 g/dL 31 - 3 7 g/dL [facility] MCV (RBC) [Entitic vol] 86.2 fL 80 - 100 fL [facility] Nucleated RBC (Bld) [#/Vol] 0.00 10*3/uL [facility] Nucleated RBC/100 WBC (Bld) [Ratio] 0.0 % [facility] Platelet mean volume (Bld) [Entitic vol] 9.7 fL 9 - 15.5 fL [facility] Platelets (Bld) [#/Vol] 277 10*3/uL [facility] RBC (Bld) [#/Vol] 3.91 10*6/uL Low [facility] WBC (Bld) [#/Vol] 9.70 10*3/uL [facility] ECG 12-LEADon 01-29-2019 Atrial Rate 84 BPM [facility] P Cl[place] 51 degrees [facility] P-R Interval 168 ms [facility] Q-T Interval 344 ms [facility] QRS Duration 92 ms [facility] QTC Calculation (Bezet) 406 ms [facility] R [place] 17 degrees [facility] T [place] 66 degrees [facility] Ventricular Rate 84 BPM [facility] Normal sinus rhythm Anterolateral infarct , age undetermined Abnormal ECG Confirmed by Torie Au MD ([id number]) on 01/29/2019 1:02:22 PM [facility] Magnesium Levelon 01-29-2019 Interpretation and review of laboratory results Normal [facility] Magnesium [Mass/Vol] 2.3 mg/dL 1.6 - 2 .4 mg/dL [facility] POC Glucoseon 01-29-2019 Glucose [Mass/Vol] 102 mg/dL High 65 - 99 mg/dL [facility] Interpretation and review of laboratory results Abnormal [facility] Glucose [Mass/Vol] 104 mg/dL High 65 - 99 mg/dL [facility] Interpretation and review of laboratory results Abnormal [facility] TROPONINon 01-29-2019 Troponin I.cardiac [Mass/Vol] ng/mL <=45 ng/L [facility] Troponin I.cardiac [Mass/Vol] Normal [facility] XR Chest 1 Viewon 01-29-2019 Interval removal of the right internal jugular catheter. The cardiopulmonary structures are stable. [employer] Workstation ID: [id number] [facility] Interface, Rad In Fu ji Speechq - 01/29/2019 9:23 AM EST EXAMINATION: XR CHEST PA/AP 01/29/2019 5:32 am HISTORY: ORDERING SYSTEM PROVIDED HISTORY: post open heart surgery, TECHNOLOGIST PROVIDED HISTORY: Illness/Other Reason for exam: S/P CABG Cancer History: u Surgery, RadiationHistory: yes Encounter Type: Subsequent/Follow-up Additional signs and symptoms: NA ORDERING SYSTEM PROVIDED DIAGNOSIS CODES: R07.89 Chest pain, atypical E11.9 Type 2 diabetes mellitus without complication, without long-term current use of insulin ([facility]) I25.10 Coronary artery disease, angina presence unspecified, unspecified vessel or lesion type, unspecified whether [place] or transplanted heart 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 TECHNIQUE: AP upright portable chest. FINDINGS: The lungs are clear and well expanded. Hemidiaphragms are smooth. Heart size is normal. There are mediastinal surgical changes with sternal wires present. The right internal jugular catheter has been removed. color television console monitor leads are noted upon the chest wall. IMPRESSION: Interval removal of the right internal jugular catheter. The cardiopulmonary structures are stable. [employer] Workstation ID: [id number] [facility] EXAMINATION: XR CHES T PA/AP 01/29/2019 5:32 am HISTORY: ORDERING SYSTEM PROVIDED HISTORY: post open heart surgery, TECHNOLOGIST PROVIDED HISTORY: Illness/Other Reason for exam: S/P CABG Cancer History: u Surgery, RadiationHistory: yes Encounter Type: Subsequent/Follow-up Additional signs and symptoms: NA ORDERING SYSTEM PROVIDED DIAGNOSIS CODES: R07.89 Chest pain, atypical E11.9 Type 2 diabetes mellitus without complication, without long-term current use of insulin ([facility]) I25.10 Coronary artery disease, angina presence unspecified, unspecified vessel or lesion type, unspecified whether [place] or transplanted heart 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 TECHNIQUE: AP upright portable chest. FINDINGS: The lungs are clear and well expanded. Hemidiaphragms are smooth. Heart size is normal. There are mediastinal surgical changes with sternal wires present. The right internal jugular catheter has been removed. color television console monitor leads are noted upon the chest wall. [facility] Basic Metabolic Panelon 01-12 Anion gap [Moles/Vol] 9 mmol/L Low 10 - 2 0 mmol/L [facility] Calcium [Mass/Vol] 8.2 mg/dL Low 8.4 - 10. 2 mg/dL [facility] Chloride [Moles/Vol] 105 mmol/L 98 - 10 8 mmol/L [facility] Creatinine [Mass/Vol] 1.04 mg/dL 0.5 - 1.3 mg/dL [facility] GFR/1.73 sq M.predicted CKD-EPI (S/P/Bld) [Vol rate/Area] 85 >=60 mL/min/1.7 3 m2 [facility] Glucose [Mass/Vol] 105 mg/dL High 65 - 99 mg/dL [facility] HCO3 [Moles/Vol] 26 mmol/L 21 - 32 mmol/L [facility] Interpretation and review of laboratory results Abnormal [facility] Potassium [Moles/Vol] 4.1 mmol/L 3.5 - 5.1 mmol/L [facility] Sodium [Moles/Vol] 136 mmol/L 135 - 145 mmol/L [facility] Urea nitrogen [Mass/Vol] 31 mg/dL High 8 - 25 mg/dL [facility] Urea nitrogen/Creatinine [Mass ratio] 29.8 mg/mg High [facility] The eGFR should be u sed for monitoring renal function only and not for medication dosing. [facility] CBCon 01-28-2019 Erythrocyte distribution width (RBC) [Entitic vol] 14.2 % 11.6 - 14.8 % [facility] Hematocrit (Bld) [Volume fraction] 30.5 % Low 41 - 53 % [facility] Hemoglobin (Bld) [Mass/Vol] 10.1 g/dL Low 13.5 - 17.5 g/dL [facility] Interpretation and review of laboratory results Abnormal [facility] MCH (RBC) [Entitic mass] 28.2 pg 26 - 34 pg [facility] MCHC (RBC) [Mass/Vol] 33.1 g/dL 31 - 3 7 g/dL [facility] MCV (RBC) [Entitic vol] 85.2 fL 80 - 100 fL [facility] Nucleated RBC (Bld) [#/Vol] 0.00 10*3/uL [facility] Nucleated RBC/100 WBC (Bld) [Ratio] 0.0 % [facility] Platelet mean volume (Bld) [Entitic vol] 9.8 fL 9 - 15.5 fL [facility] Platelets (Bld) [#/Vol] 212 10*3/uL [facility] RBC (Bld) [#/Vol] 3.58 10*6/uL Low [facility] WBC (Bld) [#/Vol] 10.07 10*3/uL [facility] Magnesium Levelon 01-28-2019 Interpretation and review of laboratory results Normal [facility] Magnesium [Mass/Vol] 2.4 mg/dL 1.6 - 2 .4 mg/dL [facility] POC Glucoseon 01-28-2019 Glucose [Mass/Vol] 113 mg/dL High 65 - 99 mg/dL [facility] Interpretation and review of laboratory results Abnormal [facility] Glucose [Mass/Vol] 114 mg/dL High 65 - 99 mg/dL [facility] Interpretation and review of laboratory results Abnormal [facility] Glucose [Mass/Vol] 93 mg/dL 65 - 99 mg/dL [facility] Interpretation and review of laboratory results Normal [facility] Glucose [Mass/Vol] 110 mg/dL High 65 - 99 mg/dL [facility] Interpretation and review of laboratory results Abnormal [facility] Glucose [Mass/Vol] 115 mg/dL High 65 - 99 mg/dL [facility] Interpretation and review of laboratory results Abnormal [facility] XR Chest 1 Viewon 01-28-2019 Cardiomegaly. No pulmonary edema. Linear scarring or atelectasis at the left lung apex and left lung base, as before. [facility] Workstation ID: [id number] [facility] Interface, Rad In Luis Fernando yi Speechq - 01/28/2019 7:04 AM EST EXAMINATION: XR CHEST PA/AP HISTORY: ORDERING SYSTEM PROVIDED HISTORY: post open heart surgery, TECHNOLOGIST PROVIDED HISTORY: Illness/Other Reason for exam: S/P CABG Cancer History: u Surgery, RadiationHistory: yes Encounter Type: Subsequent/Follow-up Additional signs and symptoms: NA ORDERING SYSTEM PROVIDED DIAGNOSIS CODES: R07.89 Chest pain, atypical E11.9 Type 2 diabetes mellitus without complication, without long-term current use of insulin ([facility]) I25.10 Coronary artery disease, angina presence unspecified, unspecified vessel or lesion type, unspecified whether [place] or transplanted heart COMPARISON: 01/27/2019 and 01/26/2019. FINDINGS: Right IJ central venous catheter with tip projected over the mid SVC. Prior median sternotomy and CABG. Cardiomegaly. No pulmonary edema, pleural effusion or pneumothorax. Persistent linear atelectatic changes at the left lung apex and left lung base. Osseous structures are intact. IMPRESSION: Cardiomegaly. No pulmonary edema. Linear scarring or atelectasis at the left lung apex and left lung base, as before. [facility] Workstation ID: [id number] [facility] EXAMINATION: XR CHES T PA/AP HISTORY: ORDERING SYSTEM PROVIDED HISTORY: post open heart surgery, TECHNOLOGIST PROVIDED HISTORY: Illness/Other Reason for exam: S/P CABG Cancer History: u Surgery, RadiationHistory: yes Encounter Type: Subsequent/Follow-up Additional signs and symptoms: NA ORDERING SYSTEM PROVIDED DIAGNOSIS CODES: R07.89 Chest pain, atypical E11.9 Type 2 diabetes mellitus without complication, without long-term current use of insulin ([facility]) I25.10 Coronary artery disease, angina presence unspecified, unspecified vessel or lesion type, unspecified whether [place] or transplanted heart COMPARISON: 01/27/2019 and 01/26/2019. FINDINGS: Right IJ central venous catheter with tip projected over the mid SVC. Prior median sternotomy and CABG. Cardiomegaly. No pulmonary edema, pleural effusion or pneumothorax. Persistent linear atelectatic changes at the left lung apex and left lung base. Osseous structures are intact. [facility] AMYLASEon 01-27-2019 Amylase [Catalytic activity/Vol] 28 U/L 25 - 115 U/L [facility] Interpretation and review of laboratory results Normal [facility] Basic Metabolic Panelon 01-12 Anion gap [Moles/Vol] 16 mmol/L 10 - 2 0 mmol/L [facility] Calcium [Mass/Vol] 8.6 mg/dL 8.4 - 10. 2 mg/dL [facility] Chloride [Moles/Vol] 97 mmol/L Low 98 - 10 8 mmol/L [facility] Creatinine [Mass/Vol] 3.10 mg/dL High 0.5 - 1.3 mg/dL [facility] GFR/1.73 sq M.predicted CKD-EPI (S/P/Bld) [Vol rate/Area] 23 Low >=60 mL/min/1.7 3 m2 [facility] Glucose [Mass/Vol] 123 mg/dL High 65 - 99 mg/dL [facility] HCO3 [Moles/Vol] 23 mmol/L 21 - 32 mmol/L [facility] Interpretation and review of laboratory results Abnormal [facility] Potassium [Moles/Vol] 4.5 mmol/L 3.5 - 5.1 mmol/L [facility] Sodium [Moles/Vol] 131 mmol/L Low 135 - 145 mmol/L [facility] Urea nitrogen [Mass/Vol] 43 mg/dL High 8 - 25 mg/dL [facility] Urea nitrogen/Creatinine [Mass ratio] 13.9 mg/mg [facility] The eGFR should be u sed for monitoring renal function only and not for medication dosing. [facility] CBCon 01-27-2019 Erythrocyte distribution width (RBC) [Entitic vol] 14.0 % 11.6 - 14.8 % [facility] Hematocrit (Bld) [Volume fraction] 33.9 % Low 41 - 53 % [facility] Hemoglobin (Bld) [Mass/Vol] 11.2 g/dL Low 13.5 - 17.5 g/dL [facility] Interpretation and review of laboratory results Abnormal [facility] MCH (RBC) [Entitic mass] 28.3 pg 26 - 34 pg [facility] MCHC (RBC) [Mass/Vol] 33.0 g/dL 31 - 3 7 g/dL [facility] MCV (RBC) [Entitic vol] 85.6 fL 80 - 100 fL [facility] Nucleated RBC (Bld) [#/Vol] 0.00 10*3/uL [facility] Nucleated RBC/100 WBC (Bld) [Ratio] 0.0 % [facility] Platelet mean volume (Bld) [Entitic vol] 10.2 fL 9 - 15.5 fL [facility] Platelets (Bld) [#/Vol] 194 10*3/uL [facility] RBC (Bld) [#/Vol] 3.96 10*6/uL Low [facility] WBC (Bld) [#/Vol] 16.03 10*3/uL High [facility] ECG 12-LEADon 01-27-2019 Atrial Rate 105 BPM [facility] P [place] 50 degrees [facility] P-R Interval 144 ms [facility] Q-T Interval 314 ms [facility] QRS Duration 86 ms [facility] QTC Calculation (Bezet) 415 ms [facility] R [place] 14 degrees [facility] T [place] 52 degrees [facility] Ventricular Rate 105 BPM [facility] th Sinus tachycardia Possible Left atrial enlargement Low voltage QRS Cannot rule out Anteroseptal infarct , age undetermined Lateral injury pattern ACUTE PA / STEMI Abnormal ECG Confirmed by Kelsea WARREN, Torie ([id number]) on 01/27/2019 2:33:32 PM [facility] ECHOCARDIOGRAM LIMITED WITH CONTRASTon 01-27-2019 Interface, Rad In [employer] - 01/27/2019 8:22 AM EST [address] [address] [place] [address] ----- ECHOCARDIOGRAPHY REPORT - [facility] ----- Name: FERNANDO HELTON Age: 48 years Date: 01/27/2019 Hospital #: [id number] : 1970 Room: [address] [place] [address] #: [id number] Sex: M Tech: Giovana Hale Ordering Physician: [id number] KRISTIN MACHUCA Height: 66.00 in Sys BP: 92 WALKER cc: , Weight: 250.00 Mira BP: 48 Reading Physician: [id number] TORIE TERRELL Rhythm: Normal sinus AU/ rhythm Electronically Signed [id number] TORIE TERRELL BSA: 2.20 m by: AU on: 01/27/2019 Reason for Study: Re-assess LV function History:CABG on 01/24/19. Conclusions: Limited echo for repeat assessment of LV function Technically difficult echo windows due to body habitus as well as postoperative state, Definity used in attempt to optimize LV cavity appears small, segmental systolic dysfunction with akinesis/dyskinesis of the mid and apical anteroseptal wall as well as the LV apex. Akinesis of the mid and apical anterior wall. LVEF 55% Findings: 1. Quality: 2. Left Ventricle: 3. Left Atrium: 4. Right Ventricle: 5. Right Atrium: 6. Aortic Valve: 7. Mitral Valve: 8. Tricuspid Valve: 9. Pulmonic Valve: 10. Aortic Root: 11. Venous: 12. Pericardium: No significant effusion identified. 13. Other: Patient Values (normal ranges in parenthesis) 2-D Doppler IVSd 1.07 cm JENNIFER LVd 4.86 cm (4.2 - 5.8 Male) AV mean grad. (3.8 - 5.2 Female) LVPWd 1.30 cm LVs 3.21 cm (2.5 - 3.6 Male) AR Vena Contracta (2.2 - 3.5 Female) MV A Vmax 0.54 m/s Ao Root Diameter (< 3.7 Male) MV E Vmax 0.7 m/s (<3.3 Female) Ao Root d 2D MV E/A ratio 1.3 LVEF 63 % (50 - 70) MV P1/2T LVFS 34 % (28 - 41) MR ERO LV mass index 99 g/m (< 115 Male) RVSP (< 95 Female) RVFW S' RWT 0.53 (< .42) TR Vmax LVEF MOD 4C 53.9 % RA Pressure 3 mmHg LVEF MOD 2C 58.2 % LVEF Biplane 56.0 % (52 - 72 Male) PV Vmax (54 - 74 Female) LA Index (BP) TAPSE LAESV HOSPICE EXECUTIVE DIRECTOR NOTES: Limited subcostal views due to wound dressings. Definity (if used): 2ml Final IMPRESSION: Limited echo for repeat assessment of LV function [address] [address] [place] [address] ----- ECHOCARDIOGRAPHY REPORT - [facility] ----- Name: FERNANDO HELTON Age: 48 years Date: 01/27/2019 Hospital #: [id number] : 1970 Room: [address] [place] [address] #: [id number] Sex: M Tech: Giovana Hale Ordering Physician: [id number] KRISTIN MACHUCA Height: 66.00 in Sys BP: 92 WALKER cc: , Weight: 250.00 Mira BP: 48 Reading Physician: [id number] TORIE TERRELL Rhythm: Normal sinus KELSEA/ rhythm Electronically Signed [id number] TORIE TERRELL BSA: 2.20 m by: KELSEA on: 01/27/2019 Reason for Study: Re-assess LV function History:CABG on 01/24/19. Conclusions: Limited echo for repeat assessment of LV function Technically difficult echo windows due to body habitus as well as postoperative state, Definity used in attempt to optimize LV cavity appears small, segmental systolic dysfunction with akinesis/dyskinesis of the mid and apical anteroseptal wall as well as the LV apex. Akinesis of the mid and apical anterior wall. LVEF 55% Findings: 1. Quality: 2. Left Ventricle: 3. Left Atrium: 4. Right Ventricle: 5. Right Atrium: 6. Aortic Valve: 7. Mitral Valve: 8. Tricuspid Valve: 9. Pulmonic Valve: 10. Aortic Root: 11. Venous: 12. Pericardium: No significant effusion identified. 13. Other: Patient Values (normal ranges in parenthesis) 2-D Doppler IVSd 1.07 cm JENNIFER LVd 4.86 cm (4.2 - 5.8 Male) AV mean grad. (3.8 - 5.2 Female) LVPWd 1.30 cm LVs 3.21 cm (2.5 - 3.6 Male) AR Vena Contracta (2.2 - 3.5 Female) MV A Vmax 0.54 m/s Ao Root Diameter (< 3.7 Male) MV E Vmax 0.7 m/s (<3.3 Female) Ao Root d 2D MV E/A ratio 1.3 LVEF 63 % (50 - 70) MV P1/2T LVFS 34 % (28 - 41) MR ERO LV mass index 99 g/m (< 115 Male) RVSP (< 95 Female) RVFW S' RWT 0.53 (< .42) TR Vmax LVEF MOD 4C 53.9 % RA Pressure 3 mmHg LVEF MOD 2C 58.2 % LVEF Biplane 56.0 % (52 - 72 Male) PV Vmax (54 - 74 Female) LA Index (BP) [facility] EXECUTIVE DIRECTOR NOTES: Limited subcostal views due to wound dressings. Definity (if used): 2ml Final [facility] Limited echo for rep eat assessment of LV function [facility] Hepatic Function Panelon Albumin [Mass/Vol] 2.6 g/dL Low 3.2 - 5.2 g/dL [facility] ALP [Catalytic activity/Vol] 41 U/L 40 - 150 U/L [facility] ALT [Catalytic activity/Vol] 35 U/L 14 - 65 U/L [facility] AST [Catalytic activity/Vol] 39 U/L 0 - 45 U/L [facility] Bilirubin [Mass/Vol] 0.8 mg/dL 0 - 1.3 mg/dL [facility] Bilirubin.conjugated [Mass/Vol] 0.2 mg/dL 0 - 0.4 mg/dL [facility] Protein [Mass/Vol] 6.1 g/dL 6 - 8 g/dL [facility] alth Lipaseon 01-27-2019 Lipase [Catalytic activity/Vol] 57 U/L Low 73 - 393 U/L [facility] Magnesium Levelon 01-27-2019 Interpretation and review of laboratory results Normal [facility] Magnesium [Mass/Vol] 2.4 mg/dL 1.6 - 2 .4 mg/dL [facility] Otheron 01-27-2019 Interpretation and review of laboratory results Abnormal [facility] POC Glucoseon 01-27-2019 Glucose [Mass/Vol] 113 mg/dL High 65 - 99 mg/dL [facility] Interpretation and review of laboratory results Abnormal [facility] Glucose [Mass/Vol] 111 mg/dL High 65 - 99 mg/dL [facility] Interpretation and review of laboratory results Abnormal [facility] Glucose [Mass/Vol] 117 mg/dL High 65 - 99 mg/dL [facility] Interpretation and review of laboratory results Abnormal [facility] TROPONINon 01-27-2019 Troponin I.cardiac [Mass/Vol] Normal [facility] Troponin I.cardiac [Mass/Vol] 28 ng/L <=45 [facility] XR ABDOMEN 1 VIEWon 01-28-20 19 Interface, Rad In Fu ji Speechq - 01/27/2019 8:57 AM EST EXAMINATION: XR ABDOMEN /KUB/FLAT PLATE/1 VIEW 01/27/2019 7:56 am HISTORY: ORDERING SYSTEM PROVIDED HISTORY: ABD distension, TECHNOLOGIST PROVIDED HISTORY: Illness/Other Reason for exam: ABD distension Cancer History: u Surgery, RadiationHistory: yes Encounter Type: Initial Additional signs and symptoms: ABD distension ORDERING SYSTEM PROVIDED DIAGNOSIS CODES: R07.89 Chest pain, atypical E11.9 Type 2 diabetes mellitus without complication, without long-term current use of insulin ([facility]) I25.10 Coronary artery disease, angina presence unspecified, unspecified vessel or lesion type, unspecified whether [place] or transplanted heart COMPARISON: CT abdomen and pelvis 05/01/2015. FINDINGS: Two images were utilized to encompass the abdomen and pelvis. There is mild gaseous distention of the colon with gas extending into the rectum. No definite small bowel dilatation. No large collection of free intraperitoneal air. Postsurgical findings median sternotomy. IMPRESSION: Nonobstructive bowel gas pattern with mild colonic distention. [facility]/ Workstation ID: [id number] [facility] EXAMINATION: XR ABDO MEN /KUB/FLAT PLATE/1 VIEW 01/27/2019 7:56 am HISTORY: ORDERING SYSTEM PROVIDED HISTORY: ABD distension, TECHNOLOGIST PROVIDED HISTORY: Illness/Other Reason for exam: ABD distension Cancer History: u Surgery, RadiationHistory: yes Encounter Type: Initial Additional signs and symptoms: ABD [facility] ORDERING SYSTEM PROVIDED DIAGNOSIS CODES: R07.89 Chest pain, atypical E11.9 Type 2 diabetes mellitus without complication, without long-term current use of insulin ([facility]) I25.10 Coronary artery disease, angina presence unspecified, unspecified vessel or lesion type, unspecified whether [place] or transplanted heart COMPARISON: CT abdomen and pelvis 05/01/2015. FINDINGS: Two images were utilized to encompass the abdomen and pelvis. There is mild gaseous distention of the colon with gas extending into the rectum. No definite small bowel dilatation. No large collection of free intraperitoneal air. Postsurgical findings median sternotomy. [facility] Nonobstructive bowel gas pattern with mild colonic distention. SLM/hb Workstation ID: [id number] [facility] XR Chest 1 Viewon 01-27-2019 Status post sternoto my. Mild residual left apical and left base atelectatic findings. RWA/kls Workstation ID: [id number] [facility] Interface, Rad In Fu ji Speechq - 01/27/2019 8:20 AM EST EXAMINATION: XR CHEST PA/AP HISTORY: post open heart surgery COMPARISON: 01/26/2019 chest. TECHNIQUE: Portable AP upright view of the chest. FINDINGS: Prior sternotomy is noted. Heart size is satisfactory. A right IJ catheter is present with its tip in the upper SVC region. Monitor leads overlie the chest. Residual left upper lobe and left base atelectatic streaking is noted. No major consolidation or edema is seen. IMPRESSION: Status post sternotomy. Mild residual left apical and left base atelectatic findings. RWA/[employer] Workstation ID: [id number] [facility] EXAMINATION: XR CHES T PA/AP HISTORY: post open heart surgery COMPARISON: 01/26/2019 chest. TECHNIQUE: Portable AP upright view of the chest. FINDINGS: Prior sternotomy is noted. Heart size is satisfactory. A right IJ catheter is present with its tip in the upper SVC region. Monitor leads overlie the chest. Residual left upper lobe and left base atelectatic streaking is noted. No major consolidation or edema is seen. [facility] Basic Metabolic Panelon 01-12 Anion gap [Moles/Vol] 13 mmol/L 10 - 2 0 mmol/L [facility] Calcium [Mass/Vol] 8.3 mg/dL Low 8.4 - 10. 2 mg/dL [facility] Chloride [Moles/Vol] 102 mmol/L 98 - 10 8 mmol/L [facility] Creatinine [Mass/Vol] 1.03 mg/dL 0.5 - 1.3 mg/dL [facility] GFR/1.73 sq M.predicted CKD-EPI (S/P/Bld) [Vol rate/Area] 86 >=60 mL/min/1.7 3 m2 [facility] Glucose [Mass/Vol] 116 mg/dL High 65 - 99 mg/dL [facility] HCO3 [Moles/Vol] 24 mmol/L 21 - 32 mmol/L [facility] Interpretation and review of laboratory results Abnormal [facility] Potassium [Moles/Vol] 4.3 mmol/L 3.5 - 5.1 mmol/L [facility] Sodium [Moles/Vol] 135 mmol/L 135 - 145 mmol/L [facility] Urea nitrogen [Mass/Vol] 21 mg/dL 8 - 25 mg/dL [facility] Urea nitrogen/Creatinine [Mass ratio] 20.4 mg/mg High [facility] The eGFR should be u sed for monitoring renal function only and not for medication dosing. [facility] CBCon 01-26-2019 Erythrocyte distribution width (RBC) [Entitic vol] 14.1 % 11.6 - 14.8 % [facility] Hematocrit (Bld) [Volume fraction] 39.4 % Low 41 - 53 % [facility] Hemoglobin (Bld) [Mass/Vol] 13.0 g/dL Low 13.5 - 17.5 g/dL [facility] Interpretation and review of laboratory results Abnormal [facility] MCH (RBC) [Entitic mass] 27.8 pg 26 - 34 pg [facility] MCHC (RBC) [Mass/Vol] 33.0 g/dL 31 - 3 7 g/dL [facility] MCV (RBC) [Entitic vol] 84.4 fL 80 - 100 fL [facility] Nucleated RBC (Bld) [#/Vol] 0.00 10*3/uL [facility] Nucleated RBC/100 WBC (Bld) [Ratio] 0.0 % [facility] Platelet mean volume (Bld) [Entitic vol] 10.2 fL 9 - 15.5 fL [facility] Platelets (Bld) [#/Vol] 183 10*3/uL [facility] RBC (Bld) [#/Vol] 4.67 10*6/uL [facility] ealth WBC (Bld) [#/Vol] 14.20 10*3/uL High [facility] Magnesium Levelon 01-26-2019 Interpretation and review of laboratory results Normal [facility] Magnesium [Mass/Vol] 2.2 mg/dL 1.6 - 2 .4 mg/dL [facility] POC Glucoseon 01-26-2019 Glucose [Mass/Vol] 128 mg/dL High 65 - 99 mg/dL [facility] Interpretation and review of laboratory results Abnormal [facility] Glucose [Mass/Vol] 112 mg/dL High 65 - 99 mg/dL [facility] Interpretation and review of laboratory results Abnormal [facility] Glucose [Mass/Vol] 111 mg/dL High 65 - 99 mg/dL [facility] Interpretation and review of laboratory results Abnormal [facility] Glucose [Mass/Vol] 117 mg/dL High 65 - 99 mg/dL [facility] Interpretation and review of laboratory results Abnormal [facility] Glucose [Mass/Vol] 110 mg/dL High 65 - 99 mg/dL [facility] Interpretation and review of laboratory results Abnormal [facility] Urine Aerobic Cultureon 01-12 Bacteria identified Aer cx Nom (Unsp spec) No Growth (<1,000 CFU/mL) [facility] XR Chest 1 Viewon 01-26-2019 Interface, Rad In Fu ji Speechq - 01/26/2019 6:30 PM EST EXAMINATION: XR CHEST PA/AP HISTORY: ORDERING SYSTEM PROVIDED HISTORY: chest tube removal, TECHNOLOGIST PROVIDED HISTORY: Illness/Other Reason for exam: chest tube removal Cancer History: u Surgery, RadiationHistory: yes Encounter Type: Initial Additional signs and symptoms: . ORDERING SYSTEM PROVIDED DIAGNOSIS CODES: R07.89 Chest pain, atypical E11.9 Type 2 diabetes mellitus without complication, without long-term current use of insulin ([facility]) I25.10 Coronary artery disease, angina presence unspecified, unspecified vessel or lesion type, unspecified whether [place] or transplanted heart COMPARISON: 01/26/2019 FINDINGS: One-view chest x-ray. Left basilar chest tube has been removed. Stable position of right central venous catheter. Low lung volumes. No pneumothorax. Mild pulmonary venous congestion. No pleural effusions. Left upper lobe subsegmental linear atelectasis. Prominent heart size. Postoperative changes of median sternotomy and CABG. Stable mediastinal contours. IMPRESSION: Interval left basilar chest tube removal. No pneumothorax. Recent CABG. Stable mediastinal contours. Mild pulmonary venous congestion. ST/hb Workstation ID: [id number] [facility] EXAMINATION: XR CHES T PA/AP HISTORY: ORDERING SYSTEM PROVIDED HISTORY: chest tube removal, TECHNOLOGIST PROVIDED HISTORY: Illness/Other Reason for exam: chest tube removal Cancer History: u Surgery, RadiationHistory: yes Encounter Type: Initial Additional signs and symptoms: . ORDERING SYSTEM PROVIDED DIAGNOSIS CODES: R07.89 Chest pain, atypical E11.9 Type 2 diabetes mellitus without complication, without long-term current use of insulin (HCC) I25.10 Coronary artery disease, angina presence unspecified, unspecified vessel or lesion type, unspecified whether [place] or transplanted heart COMPARISON: 01/26/2019 FINDINGS: One-view chest x-ray. Left basilar chest tube has been removed. Stable position of right central venous catheter. Low lung volumes. No pneumothorax. Mild pulmonary venous congestion. No pleural effusions. Left upper lobe subsegmental linear atelectasis. Prominent heart size. Postoperative changes of median sternotomy and CABG. Stable mediastinal contours. [facility] Interval left basila r chest tube removal. No pneumothorax. Recent CABG. Stable mediastinal contours. Mild pulmonary venous congestion. ST/hb Workstation ID: [id number] [facility] Interval removal of right jugular Wilsey-Isaiah catheter. Sheath remains in place. No pneumothorax. Mild pulmonary venous congestion. Recent CABG postoperative changes. ST/dnb Workstation ID: [id number] [facility] Interface, Rad In Luis Fernando Garciaq - 01/26/2019 6:30 PM EST EXAMINATION: XR CHEST PA/AP HISTORY: ORDERING SYSTEM PROVIDED HISTORY: post open heart surgery, TECHNOLOGIST PROVIDED HISTORY: Illness/Other Reason for exam: post cabg Cancer History: u Surgery, RadiationHistory: yes Encounter Type: Ongoing Additional signs and symptoms: . ORDERING SYSTEM PROVIDED DIAGNOSIS CODES: R07.89 Chest pain, atypical E11.9 Type 2 diabetes mellitus without complication, without long-term current use of insulin (HCC) I25.10 Coronary artery disease, angina presence unspecified, unspecified vessel or lesion type, unspecified whether [place] or transplanted heart COMPARISON: 01/25/2019. FINDINGS: One-view chest x-ray. Interval removal of right jugular Wilsey-Isaiah catheter. Right jugular sheath remains in place and, tip projects over the superior vena cava. Stable position of left basilar chest tube. Low lung volumes. No pneumothorax. Mild pulmonary venous congestion. Left upper lobe subsegmental linear atelectasis. No significant pleural effusions. Cardiomegaly. Postoperative changes of median sternotomy and CABG. Improved prominence of the mediastinum. IMPRESSION: Interval removal of right jugular Wilsey-Isaiah catheter. Sheath remains in place. No pneumothorax. Mild pulmonary venous congestion. Recent CABG postoperative changes. ST/dnb Workstation ID: [id number] [facility] EXAMINATION: XR CHES T PA/AP HISTORY: ORDERING SYSTEM PROVIDED HISTORY: post open heart surgery, TECHNOLOGIST PROVIDED HISTORY: Illness/Other Reason for exam: post cabg Cancer History: u Surgery, RadiationHistory: yes Encounter Type: Ongoing Additional signs and symptoms: . ORDERING SYSTEM PROVIDED DIAGNOSIS CODES: R07.89 Chest pain, atypical E11.9 Type 2 diabetes mellitus without complication, without long-term current use of insulin ([facility]) I25.10 Coronary artery disease, angina presence unspecified, unspecified vessel or lesion type, unspecified whether [place] or transplanted heart COMPARISON: 01/25/2019. FINDINGS: One-view chest x-ray. Interval removal of right jugular Wilsey-Isaiah catheter. Right jugular sheath remains in place and, tip projects over the superior vena cava. Stable position of left basilar chest tube. Low lung volumes. No pneumothorax. Mild pulmonary venous congestion. Left upper lobe subsegmental linear atelectasis. No significant pleural effusions. Cardiomegaly. Postoperative changes of median sternotomy and CABG. Improved prominence of the mediastinum. [facility] Basic Metabolic Panelon 01-12 Anion gap [Moles/Vol] 13 mmol/L 10 - 2 0 mmol/L [facility] Calcium [Mass/Vol] 8.2 mg/dL Low 8.4 - 10. 2 mg/dL [facility] Chloride [Moles/Vol] 100 mmol/L 98 - 10 8 mmol/L [facility] Creatinine [Mass/Vol] 1.20 mg/dL 0.5 - 1.3 mg/dL [facility] GFR/1.73 sq M.predicted CKD-EPI (S/P/Bld) [Vol rate/Area] 72 >=60 mL/min/1.7 3 m2 [facility] Glucose [Mass/Vol] 141 mg/dL High 65 - 99 mg/dL [facility] HCO3 [Moles/Vol] 24 mmol/L 21 - 32 mmol/L [facility] Interpretation and review of laboratory results Abnormal [facility] Potassium [Moles/Vol] 4.5 mmol/L 3.5 - 5.1 mmol/L [facility] Sodium [Moles/Vol] 132 mmol/L Low 135 - 145 mmol/L [facility] Urea nitrogen [Mass/Vol] 22 mg/dL 8 - 25 mg/dL [facility] Urea nitrogen/Creatinine [Mass ratio] 18.3 mg/mg [facility] The eGFR should be u sed for monitoring renal function only and not for medication dosing. [facility] CBCon 01-25-2019 Erythrocyte distribution width (RBC) [Entitic vol] 14.0 % 11.6 - 14.8 % [facility] Hematocrit (Bld) [Volume fraction] 38.5 % Low 41 - 53 % [facility] Hemoglobin (Bld) [Mass/Vol] 12.9 g/dL Low 13.5 - 17.5 g/dL [facility] Interpretation and review of laboratory results Abnormal [facility] MCH (RBC) [Entitic mass] 28.0 pg 26 - 34 pg [facility] MCHC (RBC) [Mass/Vol] 33.5 g/dL 31 - 3 7 g/dL [facility] MCV (RBC) [Entitic vol] 83.5 fL 80 - 100 fL [facility] Nucleated RBC (Bld) [#/Vol] 0.00 10*3/uL [facility] Nucleated RBC/100 WBC (Bld) [Ratio] 0.0 % [facility] Platelet mean volume (Bld) [Entitic vol] 9.9 fL 9 - 15.5 fL [facility] Platelets (Bld) [#/Vol] 211 10*3/uL [facility] RBC (Bld) [#/Vol] 4.61 10*6/uL [facility] ealth WBC (Bld) [#/Vol] 15.83 10*3/uL High [facility] Magnesium Levelon 01-25-2019 Interpretation and review of laboratory results Normal [facility] Magnesium [Mass/Vol] 2.0 mg/dL 1.6 - 2 .4 mg/dL [facility] POC ARTERIAL BLOOD GAS PANEL -PUL - [facility] 01-25-2019 Alveolar-arterial oxygen Partial pressure difference 41.2 mm Hg [facility] Base excess Calc (Bld) [Moles/Vol] 1.0 mmol/L [facility] Breath rate setting Ventilator synchronized intermittent mandatory [address] [facility] h CO2 (Bld) [Partial pressure] 36.3 mm[Hg] [facility] HCO3 (Bld) [Moles/Vol] 24.9 mmol/L 22 - 26 mmol/L [facility] Hematocrit (BldA) [Volume fraction] 44.2 % 41 - 53 % [facility] Hemoglobin (Bld) [Mass/Vol] 14.4 g/dL 13.5 - 18 g/dL [facility] Inhaled oxygen concentration 21 % [facility] Interpretation and review of laboratory results Abnormal [facility] Oxygen (Bld) [Partial pressure] 58 mm[Hg] Low [facility] pH (Bld) 7.44 [pH] [facility] Result Notification pt on room air [facility] SaO2% (BldA) [Mass fraction] 91.2 % Low 92 - 99 % [facility] Tidal volume setting Ventilator 0 [facility] POC Glucoseon 01-25-2019 Glucose [Mass/Vol] 125 mg/dL High 65 - 99 mg/dL [facility] Interpretation and review of laboratory results Abnormal [facility] Glucose [Mass/Vol] 109 mg/dL High 65 - 99 mg/dL [facility] Interpretation and review of laboratory results Abnormal [facility] Glucose [Mass/Vol] 129 mg/dL High 65 - 99 mg/dL [facility] Interpretation and review of laboratory results Abnormal [facility] Glucose [Mass/Vol] 119 mg/dL High 65 - 99 mg/dL [facility] Interpretation and review of laboratory results Abnormal [facility] Glucose [Mass/Vol] 117 mg/dL High 65 - 99 mg/dL [facility] Interpretation and review of laboratory results Abnormal [facility] Glucose [Mass/Vol] 127 mg/dL High 65 - 99 mg/dL [facility] Interpretation and review of laboratory results Abnormal [facility] Glucose [Mass/Vol] 132 mg/dL High 65 - 99 mg/dL [facility] Interpretation and review of laboratory results Abnormal [facility] Glucose [Mass/Vol] 140 mg/dL High 65 - 99 mg/dL [facility] Interpretation and review of laboratory results Abnormal [facility] Glucose [Mass/Vol] 129 mg/dL High 65 - 99 mg/dL [facility] Interpretation and review of laboratory results Abnormal [facility] XR Chest 1 Viewon 01-25-2019 EXAMINATION: XR CHES T PA/AP 01/25/2019 5:34 am HISTORY: ORDERING SYSTEM PROVIDED HISTORY: post open heart surgery, TECHNOLOGIST PROVIDED HISTORY: Illness/Other Reason for exam: 1 day post op Cancer History: u Surgery, RadiationHistory: yes Encounter Type: Initial Additional signs and symptoms: . ORDERING SYSTEM PROVIDED DIAGNOSIS CODES: R07.89 Chest pain, atypical E11.9 Type 2 diabetes mellitus without complication, without long-term current use of insulin ([facility]) I25.10 Coronary artery disease, angina presence unspecified, unspecified vessel or lesion type, unspecified whether [place] or transplanted heart COMPARISON: 01/24/2019 FINDINGS: Endotracheal tube and NG tube have been removed. Wilsey-Isaiah catheter tip is in the right main pulmonary artery. Heart is mildly enlarged with a left ventricular contour. Vascularity is unremarkable. Right lung is unremarkable. There is been slight improvement in atelectasis in the left upper lobe. There is been interval development of a small amount of atelectasis versus early infiltrate in the left lung base. No pneumothorax is identified. [facility] Interface, Rad In Fu ji Speechq - 01/25/2019 8:33 AM EST EXAMINATION: XR CHEST PA/AP 01/25/2019 5:34 am HISTORY: ORDERING SYSTEM PROVIDED HISTORY: post open heart surgery, TECHNOLOGIST PROVIDED HISTORY: Illness/Other Reason for exam: 1 day post op Cancer History: u Surgery, RadiationHistory: yes Encounter Type: Initial Additional signs and symptoms: . ORDERING SYSTEM PROVIDED DIAGNOSIS CODES: R07.89 Chest pain, atypical E11.9 Type 2 diabetes mellitus without complication, without long-term current use of insulin (HCC) I25.10 Coronary artery disease, angina presence unspecified, unspecified vessel or lesion type, unspecified whether [place] or transplanted heart COMPARISON: 01/24/2019 FINDINGS: Endotracheal tube and NG tube have been removed. Wilsey-Isaiah catheter tip is in the right main pulmonary artery. Heart is mildly enlarged with a left ventricular contour. Vascularity is unremarkable. Right lung is unremarkable. There is been slight improvement in atelectasis in the left upper lobe. There is been interval development of a small amount of atelectasis versus early infiltrate in the left lung base. No pneumothorax is identified. IMPRESSION: 1. NG tube and endotracheal tube have been removed. 2. Wilsey-Isaiah catheter tip is in the right main pulmonary artery. 3. Improvement in the atelectasis in the left upper lobe. 4. Interval development of atelectasis versus early infiltrate in the left lung base. Workstation ID: [id number] [facility] 1. NG tube and endotracheal tube have been removed. 2. Wilsey-Isaiah catheter tip is in the right main pulmonary artery. 3. Improvement in the atelectasis in the left upper lobe. 4. Interval development of atelectasis versus early infiltrate in the left lung base. Workstation ID: [id number] [facility] APTTon 01-24-2019 aPTT Coag (Bld) [Time] 28 s [facility] Therapeutic range fo r APTT's is 68 - 104 seconds [facility] aPTT Coag (Bld) [Time] [facility] range fo r APTT's is 68 - 104 seconds [facility] aPTT Coag (Bld) [Time] 59 s High [facility] Interpretation and review of laboratory results Abnormal [facility] Therapeutic range fo r APTT's is 68 - 104 seconds [facility] Basic Metabolic Panelon 01-12 Anion gap [Moles/Vol] 11 mmol/L 10 - 2 0 mmol/L [facility] Calcium [Mass/Vol] 8.6 mg/dL 8.4 - 10. 2 mg/dL [facility] Chloride [Moles/Vol] 100 mmol/L 98 - 10 8 mmol/L [facility] Creatinine [Mass/Vol] 1.25 mg/dL 0.5 - 1.3 mg/dL [facility] GFR/1.73 sq M.predicted CKD-EPI (S/P/Bld) [Vol rate/Area] 68 >=60 mL/min/1.7 3 m2 [facility] Glucose [Mass/Vol] 122 mg/dL High 65 - 99 mg/dL [facility] HCO3 [Moles/Vol] 25 mmol/L 21 - 32 mmol/L [facility] Interpretation and review of laboratory results Abnormal [facility] Potassium [Moles/Vol] 5.0 mmol/L 3.5 - 5.1 mmol/L [facility] Sodium [Moles/Vol] 131 mmol/L Low 135 - 145 mmol/L [facility] Urea nitrogen [Mass/Vol] 30 mg/dL High 8 - 25 mg/dL [facility] Urea nitrogen/Creatinine [Mass ratio] 24.0 mg/mg High [facility] The eGFR should be u sed for monitoring renal function only and not for medication dosing. [facility] Anion gap [Moles/Vol] 14 mmol/L 10 - 2 0 mmol/L [facility] Calcium [Mass/Vol] 8.2 mg/dL Low 8.4 - 10. 2 mg/dL [facility] Chloride [Moles/Vol] 100 mmol/L 98 - 10 8 mmol/L [facility] Creatinine [Mass/Vol] 1.31 mg/dL High 0.5 - 1.3 mg/dL [facility] GFR/1.73 sq M.predicted CKD-EPI (S/P/Bld) [Vol rate/Area] 64 >=60 mL/min/1.7 3 m2 [facility] Glucose [Mass/Vol] 130 mg/dL High 65 - 99 mg/dL [facility] HCO3 [Moles/Vol] 24 mmol/L 21 - 32 mmol/L [facility] Interpretation and review of laboratory results Abnormal [facility] Potassium [Moles/Vol] 3.7 mmol/L 3.5 - 5.1 mmol/L [facility] Sodium [Moles/Vol] 134 mmol/L Low 135 - 145 mmol/L [facility] Urea nitrogen [Mass/Vol] 26 mg/dL High 8 - 25 mg/dL [facility] Urea nitrogen/Creatinine [Mass ratio] 19.8 mg/mg [facility] The eGFR should be u sed for monitoring renal function only and not for medication dosing. [facility] Anion gap [Moles/Vol] 13 mmol/L 10 - 2 0 mmol/L [facility] Calcium [Mass/Vol] 9.0 mg/dL 8.4 - 10. 2 mg/dL [facility] Chloride [Moles/Vol] 98 mmol/L 98 - 10 8 mmol/L [facility] Creatinine [Mass/Vol] 1.19 mg/dL 0.5 - 1.3 mg/dL [facility] GFR/1.73 sq M.predicted CKD-EPI (S/P/Bld) [Vol rate/Area] 72 >=60 mL/min/1.7 3 m2 [facility] Glucose [Mass/Vol] 148 mg/dL High 65 - 99 mg/dL [facility] HCO3 [Moles/Vol] 27 mmol/L 21 - 32 mmol/L [facility] Interpretation and review of laboratory results Abnormal [facility] Potassium [Moles/Vol] 3.6 mmol/L 3.5 - 5.1 mmol/L [facility] Sodium [Moles/Vol] 134 mmol/L Low 135 - 145 mmol/L [facility] Urea nitrogen [Mass/Vol] 26 mg/dL High 8 - 25 mg/dL [facility] Urea nitrogen/Creatinine [Mass ratio] 21.8 mg/mg High [facility] The eGFR should be u sed for monitoring renal function only and not for medication dosing. [facility] CBCon 01-24-2019 Erythrocyte distribution width (RBC) [Entitic vol] 13.7 % 11.6 - 14.8 % [facility] Hematocrit (Bld) [Volume fraction] 36.8 % Low 41 - 53 % [facility] Hemoglobin (Bld) [Mass/Vol] 12.4 g/dL Low 13.5 - 17.5 g/dL [facility] Interpretation and review of laboratory results Abnormal [facility] MCH (RBC) [Entitic mass] 27.9 pg 26 - 34 pg [facility] MCHC (RBC) [Mass/Vol] 33.7 g/dL 31 - 3 7 g/dL [facility] MCV (RBC) [Entitic vol] 82.9 fL 80 - 100 fL [facility] Nucleated RBC (Bld) [#/Vol] 0.00 10*3/uL [facility] Nucleated RBC/100 WBC (Bld) [Ratio] 0.0 % [facility] Platelet mean volume (Bld) [Entitic vol] 10.1 fL 9 - 15.5 fL [facility] Platelets (Bld) [#/Vol] 203 10*3/uL [facility] RBC (Bld) [#/Vol] 4.44 10*6/uL Low [facility] eah WBC (Bld) [#/Vol] 12.07 10*3/uL High [facility] CBC WITH AUTO DIFFERENTIALon 01-24-2019 Basophils (Bld) [#/Vol] 0.05 10*3/uL [facility] Basophils/100 WBC (Bld) 0.3 % [facility] [#/Vol] 0.11 10*3/uL [facility] Eosinophils/100 WBC (Bld) 0.7 % [facility] Erythrocyte distribution width (RBC) [Entitic vol] 13.9 % 11.6 - 14.8 % [facility] Hematocrit (Bld) [Volume fraction] 37.5 % Low 41 - 53 % [facility] Hemoglobin (Bld) [Mass/Vol] 12.5 g/dL Low 13.5 - 17.5 g/dL [facility] Immature granulocytes (Bld) [#/Vol] 0.16 10*3/uL [facility] Immature granulocytes/100 WBC (Bld) 1.00 % [facility] Comment on above: The IG parameter is the percentage of metamyelocytes, myelocytes, and promyelocytes. Interpretation and review of laboratory results Abnormal [facility] Lymphocytes (Bld) [#/Vol] 1.58 10*3/uL [facility] Lymphocytes/100 WBC (Bld) 9.7 % [facility] MCH (RBC) [Entitic mass] 28.0 pg 26 - 34 pg [facility] MCHC (RBC) [Mass/Vol] 33.3 g/dL 31 - 3 7 g/dL [facility] MCV (RBC) [Entitic vol] 84.1 fL 80 - 100 fL [facility] Monocytes (Bld) [#/Vol] 1.47 10*3/uL High [facility] Monocytes/100 WBC (Bld) 9.1 % O [facility] Neutrophils (Bld) [#/Vol] 12.85 10*3/uL High [facility] Neutrophils/100 WBC (Bld) 79.2 % [facility] Nucleated RBC (Bld) [#/Vol] 0.00 10*3/uL [facility] Nucleated RBC/100 WBC (Bld) [Ratio] 0.0 % [facility] Platelet mean volume (Bld) [Entitic vol] 10.1 fL 9 - 15.5 fL [facility] Platelets (Bld) [#/Vol] 227 10*3/uL [facility] RBC (Bld) [#/Vol] 4.46 10*6/uL Low [facility]alth WBC (Bld) [#/Vol] 16.22 10*3/uL High [facility] Basophils (Bld) [#/Vol] 0.07 10*3/uL [facility] Basophils/100 WBC (Bld) 0.5 % [facility] Eosinophils (Bld) [#/Vol] 0.61 10*3/uL High [facility] Eosinophils/100 WBC (Bld) 4.0 % [facility] Erythrocyte distribution width (RBC) [Entitic vol] 13.8 % 11.6 - 14.8 % [facility] Hematocrit (Bld) [Volume fraction] 36.5 % Low 41 - 53 % [facility] Hemoglobin (Bld) [Mass/Vol] 12.2 g/dL Low 13.5 - 17.5 g/dL [facility] Immature granulocytes (Bld) [#/Vol] 0.22 10*3/uL [facility] Immature granulocytes/100 WBC (Bld) 1.40 % [facility] Comment on above: The IG parameter is the percentage of metamyelocytes, myelocytes, and promyelocytes. Interpretation and review of laboratory results Abnormal [facility] Lymphocytes (Bld) [#/Vol] 2.53 10*3/uL [facility] Lymphocytes/100 WBC (Bld) 16.6 % [facility] MCH (RBC) [Entitic mass] 27.9 pg 26 - 34 pg [facility] MCHC (RBC) [Mass/Vol] 33.4 g/dL 31 - 3 7 g/dL [facility] MCV (RBC) [Entitic vol] 83.3 fL 80 - 100 fL [facility] Monocytes (Bld) [#/Vol] 1.19 10*3/uL High [facility] Monocytes/100 WBC (Bld) 7.8 % [facility] Neutrophils (Bld) [#/Vol] 10.66 10*3/uL High [facility] Neutrophils/100 WBC (Bld) 69.7 % [facility] Nucleated RBC (Bld) [#/Vol] 0.00 10*3/uL [facility] Nucleated RBC/100 WBC (Bld) [Ratio] 0.0 % [facility] Platelet mean volume (Bld) [Entitic vol] 10.1 fL 9 - 15.5 fL [facility] Platelets (Bld) [#/Vol] 201 10*3/uL [facility] RBC (Bld) [#/Vol] 4.38 10*6/uL Low [facility]ah WBC (Bld) [#/Vol] 15.28 10*3/uL High [facility] Basophils (Bld) [#/Vol] 0.06 10*3/uL [facility] Basophils/100 WBC (Bld) 0.5 % [facility] Eosinophils (Bld) [#/Vol] 0.74 10*3/uL High [facility] Eosinophils/100 WBC (Bld) 6.8 % [facility] Erythrocyte distribution width (RBC) [Entitic vol] 13.8 % 11.6 - 14.8 % [facility] Hematocrit (Bld) [Volume fraction] 42.3 % 41 - 53 % [facility] Hemoglobin (Bld) [Mass/Vol] 14.0 g/dL 13.5 - 17.5 g/dL [facility] Immature granulocytes (Bld) [#/Vol] 0.12 10*3/uL [facility] Immature granulocytes/100 WBC (Bld) 1.10 % [facility] Comment on above: The IG parameter is the percentage of metamyelocytes, myelocytes, and promyelocytes. Interpretation and review of laboratory results Abnormal [facility] Lymphocytes (Bld) [#/Vol] 3.01 10*3/uL [facility] Lymphocytes/100 WBC (Bld) 27.6 % [facility] MCH (RBC) [Entitic mass] 27.7 pg 26 - 34 pg [facility] MCHC (RBC) [Mass/Vol] 33.1 g/dL 31 - 3 7 g/dL [facility] MCV (RBC) [Entitic vol] 83.6 fL 80 - 100 fL [facility] Monocytes (Bld) [#/Vol] 0.95 10*3/uL High [facility] Monocytes/100 WBC (Bld) 8.7 % [facility] Neutrophils (Bld) [#/Vol] 6.04 10*3/uL [facility] Neutrophils/100 WBC (Bld) 55.3 % [facility] Nucleated RBC (Bld) [#/Vol] 0.00 10*3/uL [facility] Nucleated RBC/100 WBC (Bld) [Ratio] 0.0 % [facility] Platelet mean volume (Bld) [Entitic vol] 10.1 fL 9 - 15.5 fL [facility] Platelets (Bld) [#/Vol] 230 10*3/uL [facility] RBC (Bld) [#/Vol] 5.06 10*6/uL [facility] WBC (Bld) [#/Vol] 10.92 10*3/uL [facility] Calcium, Ionizedon 9 Calcium.ionized [Mass/Vol] 4.6 mg/dL 4.5 - 5.3 mg/dL [facility] Interpretation and review of laboratory results Normal [facility] Calcium.ionized [Mass/Vol] 4.5 mg/dL 4.5 - 5.3 mg/dL [facility] Interpretation and review of laboratory results Normal [facility] Fibrinogenon 01-24-2019 Fibrinogen Coag (PPP) [Mass/Vol] 309 mg/dL 224 - 483 mg/dL [facility] Fibrinogen Coag (PPP) [Mass/Vol] 316 mg/dL 224 - 483 mg/dL [facility] Hematologyon 01-24-2019 pH (Bld) 7.44 [pH] [facility] ABO and Rh group Nom (Bld) O Neg [facility] ABO and Rh group Nom (Bld) 9500 [facility] Magnesium Levelon 01-24-2019 Interpretation and review of laboratory results Normal [facility] Magnesium [Mass/Vol] 2.0 mg/dL 1.6 - 2 .4 mg/dL [facility] Interpretation and review of laboratory results Normal [facility] Magnesium [Mass/Vol] 2.0 mg/dL 1.6 - 2 .4 mg/dL [facility] Metabolic Panelon 01-24-2019 Potassium [Moles/Vol] 3.8 mmol/L 3.5 - 5.1 mmol/L [facility] Otheron 01-24-2019 Interpretation and review of laboratory results Abnormal [facility] Interpretation and review of laboratory results Normal [facility] Interpretation and review of laboratory results Normal [facility] Interpretation and review of laboratory results Abnormal [facility] SaO2% (BldA) [Mass fraction] 100.0 % High 92 - 99 % [facility] Cross Match Compatible [facility] Product Code [id number] [facility] Product Code [id number] [facility] Product ID Red Blood Cells [facility] Status Info Released [facility] POC ABG SURG - RALSon 2018 Base Excess, Arterial 4 High [facility] Base Excess, Arterial 1 [facility] Base Excess, Arterial 3 High [facility] Calcium.ionized (Bld) [Mass/Vol] 4.7 mg/dL 4.5 - 5.3 mg/dL [facility] Calcium.ionized (Bld) [Mass/Vol] 4.9 mg/dL 4.5 - 5.3 mg/dL [facility] Calcium.ionized (Bld) [Mass/Vol] 4.6 mg/dL 4.5 - 5.3 mg/dL [facility] CO2 (Bld) [Partial pressure] 38.1 mm[Hg] [facility] CO2 (Bld) [Partial pressure] 53.2 mm[Hg] High [facility] CO2 (Bld) [Partial pressure] 40.5 mm[Hg] [facility] Glucose [Mass/Vol] 168 mg/dL High 65 - 99 mg/dL [facility] Glucose [Mass/Vol] 131 mg/dL High 65 - 99 mg/dL [facility] Glucose [Mass/Vol] 169 mg/dL High 65 - 99 mg/dL [facility] HCO3 (Bld) [Moles/Vol] 25.7 mmol/L 22 - 26 mmol/L [facility] HCO3 (Bld) [Moles/Vol] 27.3 mmol/L High 22 - 26 mmol/L [facility] HCO3 (Bld) [Moles/Vol] 30.4 mmol/L High 22 - 26 mmol/L [facility] Hematocrit (Bld) [Volume fraction] 39 % Low 41 - 53 % [facility] Hematocrit (Bld) [Volume fraction] 37 % Low 41 - 53 % [facility] Hematocrit (Bld) [Volume fraction] 40 % Low 41 - 53 % [facility] Hemoglobin (Bld) [Mass/Vol] 13.6 g/dL 13.5 - 17.5 g/dL [facility] Hemoglobin (Bld) [Mass/Vol] 12.6 g/dL Low 13.5 - 17.5 g/dL [facility] Hemoglobin (Bld) [Mass/Vol] 13.3 g/dL Low 13.5 - 17.5 g/dL [facility] Oxygen (Bld) [Partial pressure] 364 mm[Hg] High [facility] Oxygen (Bld) [Partial pressure] 432 mm[Hg] High [facility] Oxygen (Bld) [Partial pressure] 344 mm[Hg] High [facility] pH (Bld) 7.37 [pH] [facility] Sodium [Moles/Vol] 132 mmol/L Low 135 - 145 mmol/L [facility] Sodium [Moles/Vol] 134 mmol/L Low 135 - 145 mmol/L [facility] Sodium [Moles/Vol] 131 mmol/L Low 135 - 145 mmol/L [facility] POC ARTERIAL BLOOD GAS PANEL [facility] 01-24-2019 Alveolar-arterial oxygen Partial pressure difference 89.1 mm Hg [facility] Base excess Calc (Bld) [Moles/Vol] 1.1 mmol/L [facility] Breath rate setting Ventilator synchronized intermittent mandatory 0 [facility] h CO2 (Bld) [Partial pressure] 45.4 mm[Hg] High [facility] HCO3 (Bld) [Moles/Vol] 26.7 mmol/L High 22 - 26 mmol/L [facility] Hematocrit (BldA) [Volume fraction] 39.6 % Low 41 - 53 % [facility] Hemoglobin (Bld) [Mass/Vol] 12.9 g/dL Low 13.5 - 18 g/dL [facility] Inhaled oxygen concentration 40 % [facility] Interpretation and review of laboratory results Abnormal [facility] Oxygen (Bld) [Partial pressure] 132 mm[Hg] High [facility] PEEP Respiratory system 5 [facility] pH (Bld) 7.38 [pH] [facility] SaO2% (BldA) [Mass fraction] 98.7 % 92 - 99 % [facility] Tidal volume setting Ventilator 0 [facility] Alveolar-arterial oxygen Partial pressure difference 127.3 mm Hg [facility] Base excess Calc (Bld) [Moles/Vol] 1.0 mmol/L [facility] Breath rate setting Ventilator synchronized intermittent mandatory [facility] CO2 (Bld) [Partial pressure] 41.7 mm[Hg] [facility] HCO3 (Bld) [Moles/Vol] 26.0 mmol/L 22 - 26 mmol/L [facility] Hematocrit (BldA) [Volume fraction] 38.5 % Low 41 - 53 % [facility] Hemoglobin (Bld) [Mass/Vol] 12.5 g/dL Low 13.5 - 18 g/dL [facility] Inhaled oxygen concentration 40 % [facility] Interpretation and review of laboratory results Abnormal [facility] Oxygen (Bld) [Partial pressure] 98 mm[Hg] [facility] PEEP Respiratory system 5 [facility] pH (Bld) 7.40 [pH] [facility] SaO2% (BldA) [Mass fraction] 97.7 % 92 - 99 % [facility] Tidal volume setting Ventilator 800 [facility] Alveolar-arterial oxygen Partial pressure difference 307.3 mm Hg [facility] Base excess Calc (Bld) [Moles/Vol] 2.0 mmol/L [facility] Breath rate setting Ventilator synchronized intermittent mandatory 0 [facility] CO2 (Bld) [Partial pressure] 39.5 mm[Hg] [facility] HCO3 (Bld) [Moles/Vol] 26.4 mmol/L High 22 - 26 mmol/L [facility] Hematocrit (BldA) [Volume fraction] 39.5 % Low 41 - 53 % [facility] Hemoglobin (Bld) [Mass/Vol] 12.9 g/dL Low 13.5 - 18 g/dL [facility] Inhaled oxygen concentration 70 % [facility] Interpretation and review of laboratory results Abnormal [facility] Oxygen (Bld) [Partial pressure] 126 mm[Hg] High [facility] PEEP Respiratory system 5 [facility] pH (Bld) 7.43 [pH] [facility] SaO2% (BldA) [Mass fraction] 98.7 % 92 - 99 % [facility] Specimen source Nom (Unsp spec) Not specified [facility] Tidal volume setting Ventilator 800 [facility] POC Glucoseon 01-24-2019 Glucose [Mass/Vol] 120 mg/dL High 65 - 99 mg/dL [facility] Interpretation and review of laboratory results Abnormal [facility] Glucose [Mass/Vol] 132 mg/dL High 65 - 99 mg/dL [facility] Glucose [Mass/Vol] 119 mg/dL High 65 - 99 mg/dL [facility] Glucose [Mass/Vol] 122 mg/dL High 65 - 99 mg/dL [facility] Interpretation and review of laboratory results Abnormal [facility] Glucose [Mass/Vol] 134 mg/dL High 65 - 99 mg/dL [facility] Interpretation and review of laboratory results Abnormal [facility] Glucose [Mass/Vol] 131 mg/dL High 65 - 99 mg/dL [facility] Interpretation and review of laboratory results Abnormal [facility] Glucose [Mass/Vol] 114 mg/dL High 65 - 99 mg/dL [facility] Glucose [Mass/Vol] 121 mg/dL High 65 - 99 mg/dL [facility] Interpretation and review of laboratory results Abnormal [facility] Glucose [Mass/Vol] 137 mg/dL High 65 - 99 mg/dL [facility] Interpretation and review of laboratory results Abnormal [facility] Glucose [Mass/Vol] 149 mg/dL High 65 - 99 mg/dL [facility] Interpretation and review of laboratory results Abnormal [facility] Glucose [Mass/Vol] 169 mg/dL High 65 - 99 mg/dL [facility] Interpretation and review of laboratory results Abnormal [facility] Glucose [Mass/Vol] 108 mg/dL High 65 - 99 mg/dL [facility] Interpretation and review of laboratory results Abnormal [facility] PREPARE RBCon 01-24-2019 Product Code [id number] [facility] Unit Number [id number] [facility] Unit Number [id number] [facility] Unit Number [id number] [facility] Unit Number [id number] [facility] Unit Number [id number] [facility] Unit Number [id number] [facility] PT/INRon 01-24-2019 INR Coag (PPP) [Relative time] 1.0 {INR} [facility] Interpretation and review of laboratory results Normal [facility] PT Coag (PPP) [Time] 13.3 s [facility] During the induction phase of oral anticoagulation, the INR may not reflect the anticoagulation status of the patient. Therapeutic ranges for INR's are: Most clinical situations: INR 2.0-3.0 Mechanical Prosthetic Valve: INR 2.5-3.5 Critical: INR >5.0 [facility] INR Coag (PPP) [Relative time] 1.1 {INR} [facility] PT Coag (PPP) [Time] 13.5 s [facility] During the induction phase of oral anticoagulation, the INR may not reflect the anticoagulation status of the patient. Therapeutic ranges for INR's are: Most clinical situations: INR 2.0-3.0 Mechanical Prosthetic Valve: INR 2.5-3.5 Critical: INR >5.0 [facility] INR Coag (PPP) [Relative time] 1.1 {INR} [facility] PT Coag (PPP) [Time] 13.4 s [facility] During the induction phase of oral anticoagulation, the INR may not reflect the anticoagulation status of the patient. Therapeutic ranges for INR's are: Most clinical situations: INR 2.0-3.0 Mechanical Prosthetic Valve: INR 2.5-3.5 Critical: INR >5.0 [facility] Type and Screenon 01-24-2019 ABO and Rh group Nom (Bld) O Negative [facility] Blood group antibody screen Ql Negative [facility] Specimen Expires 01/27/2019 23:59 EST [facility] XR Chest 1 Viewon 01-24-2019 1. No acute cardiopulmonary disease. 2. Normal heart size with evidence of prior coronary arterial stenting. 3. No acute osseous abnormality. [employer] Workstation ID: [id number] [facility] Interface, Rad In Fu ji Speechq - 01/24/2019 5:04 PM EST EXAMINATION: 1 VIEW XR CHEST PA/AP, 01/24/2019 COMPARISON: Chest, 01/21/2019. HISTORY: Dx: R07.89 (Chest pain, atypical) Injury/Trauma or Illness?:Illness/Other How long have you had these symptoms (acute/chronic)?:Unknown pre-op IMPRESSION: 1. No acute cardiopulmonary disease. 2. Normal heart size with evidence of prior coronary arterial stenting. 3. No acute osseous abnormality. [employer] Workstation ID: [id number] [facility] EXAMINATION: 1 VIEW XR CHEST PA/AP, 01/24/2019 COMPARISON: Chest, 01/21/2019. HISTORY: Dx: R07.89 (Chest pain, atypical) Injury/Trauma or Illness?:Illness/Other How long have you had these symptoms (acute/chronic)?:Unknown pre-op [facility] 1. There is a right mainstem intubation that has been appropriately retracted on follow-up chest radiograph performed just following this exam. 2. Nasogastric tube is seen descending into the stomach although the tip is not included for visualization. Central mediastinal or left chest tube is in place. 3. Right internal jugular Wilsey-Isaiah line in place with tip in the main pulmonary artery. 4. Lung volumes are slightly diminished with some crowding of bronchopulmonary vasculature. Some discoid atelectasis in the left upper lobe suspected. 5. Stable heart size with evidence of coronary arterial stenting in CABG. emotion.meT/lab Workstation ID: [id number] [facility] Interface, Rad In Luis Fernando yi Speechq - 01/24/2019 5:03 PM EST EXAMINATION: 1-VIEW XR CHEST PA/AP 01/24/2019 AT 10:13 AM COMPARISON: Chest radiograph performed later in the day at 10:20 a.m. HISTORY: Dx: R07.89 (Chest pain, atypical). Injury/Trauma or Illness?: Illness/Other. How long have you had these symptoms (acute/chronic)?: Unknown. ET tube placement. IMPRESSION: 1. There is a right mainstem intubation that has been appropriately retracted on follow-up chest radiograph performed just following this exam. 2. Nasogastric tube is seen descending into the stomach although the tip is not included for visualization. Central mediastinal or left chest tube is in place. 3. Right internal jugular Wilsey-Isaiah line in place with tip in the main pulmonary artery. 4. Lung volumes are slightly diminished with some crowding of bronchopulmonary vasculature. Some discoid atelectasis in the left upper lobe suspected. 5. Stable heart size with evidence of coronary arterial stenting in CABG. emotion.meT/lab Workstation ID: [id number] [facility] EXAMINATION: 1-VIEW XR CHEST PA/AP 01/24/2019 AT 10:13 AM COMPARISON: Chest radiograph performed later in the day at 10:20 a.m. HISTORY: Dx: R07.89 (Chest pain, atypical). Injury/Trauma or Illness?: Illness/Other. How long have you had these symptoms (acute/chronic)?: Unknown. ET tube placement. [facility] EXAMINATION: 1 VIEW XR CHEST PA/AP, 01/24/2019 AT 10:20 A.M. COMPARISON: Chest radiograph performed earlier the same day at 10:13 a.m. HISTORY: Dx: R07.89 (Chest pain, atypical) Injury/Trauma or Illness?:Illness/Other How long have you had these symptoms (acute/chronic)?:Unknown reposition OG [facility] 1. Endotracheal tube has been retracted and is probably located at the level of thoracic inlet. 2. Orogastric tube is again seen extending into the stomach although the tip is not included for visualization. Central mediastinal or left chest tube and right internal jugular Wilsey-Isaiah line remain in stable position. 3. Lung volumes is slightly diminished with some discoid atelectasis slightly progressed in the left lung apex since the prior exam. No pneumothorax. 4. Stable heart size with evidence of coronary arterial stenting and new CABG. GJT/trn Workstation ID: [id number] [facility] Interface, Rad In Luis Fernando yi Speechq - 01/24/2019 5:03 PM EST EXAMINATION: 1 VIEW XR CHEST PA/AP, 01/24/2019 AT 10:20 A.M. COMPARISON: Chest radiograph performed earlier the same day at 10:13 a.m. HISTORY: Dx: R07.89 (Chest pain, atypical) Injury/Trauma or Illness?:Illness/Other How long have you had these symptoms (acute/chronic)?:Unknown reposition OG IMPRESSION: 1. Endotracheal tube has been retracted and is probably located at the level of thoracic inlet. 2. Orogastric tube is again seen extending into the stomach although the tip is not included for visualization. Central mediastinal or left chest tube and right internal jugular Wilsey-Isaiah line remain in stable position. 3. Lung volumes is slightly diminished with some discoid atelectasis slightly progressed in the left lung apex since the prior exam. No pneumothorax. 4. Stable heart size with evidence of coronary arterial stenting and new CABG. emotion.meT/trn Workstation ID: [id number] [facility] APTTon 01-23-2019 aPTT Coag (Bld) [Time] 79 s High [facility] Interpretation and review of laboratory results Abnormal [facility] Therapeutic range fo r APTT's is 68 - 104 seconds [facility] Basic Metabolic Panelon 01-12 Anion gap [Moles/Vol] 11 mmol/L 10 - 2 0 mmol/L [facility] Calcium [Mass/Vol] 9.3 mg/dL 8.4 - 10. 2 mg/dL [facility] Chloride [Moles/Vol] 99 mmol/L 98 - 10 8 mmol/L [facility] Creatinine [Mass/Vol] 1.22 mg/dL 0.5 - 1.3 mg/dL [facility] GFR/1.73 sq M.predicted CKD-EPI (S/P/Bld) [Vol rate/Area] 70 >=60 mL/min/1.7 3 m2 [facility] Glucose [Mass/Vol] 124 mg/dL High 65 - 99 mg/dL [facility] HCO3 [Moles/Vol] 27 mmol/L 21 - 32 mmol/L [facility] Interpretation and review of laboratory results Abnormal [facility] Potassium [Moles/Vol] 4.0 mmol/L 3.5 - 5.1 mmol/L [facility] Sodium [Moles/Vol] 133 mmol/L Low 135 - 145 mmol/L [facility] Urea nitrogen [Mass/Vol] 25 mg/dL 8 - 25 mg/dL [facility] Urea nitrogen/Creatinine [Mass ratio] 20.5 mg/mg High [facility] The eGFR should be u sed for monitoring renal function only and not for medication dosing. [facility] CBC WITH AUTO DIFFERENTIALon 01-23-2019 Basophils (Bld) [#/Vol] 0.08 10*3/uL [facility] Basophils/100 WBC (Bld) 0.7 % [facility] Eosinophils (Bld) [#/Vol] 0.80 10*3/uL High [facility] Eosinophils/100 WBC (Bld) 6.6 % [facility] Erythrocyte distribution width (RBC) [Entitic vol] 14.1 % 11.6 - 14.8 % [facility] Hematocrit (Bld) [Volume fraction] 42.4 % 41 - 53 % [facility] Hemoglobin (Bld) [Mass/Vol] 14.3 g/dL 13.5 - 17.5 g/dL [facility] Immature granulocytes (Bld) [#/Vol] 0.16 10*3/uL [facility] Immature granulocytes/100 WBC (Bld) 1.30 % [facility] Comment on above: The IG parameter is the percentage of metamyelocytes, myelocytes, and promyelocytes. Interpretation and review of laboratory results Abnormal [facility] Lymphocytes (Bld) [#/Vol] 3.27 10*3/uL [facility] Lymphocytes/100 WBC (Bld) 26.9 % [facility] MCH (RBC) [Entitic mass] 28.4 pg 26 - 34 pg [facility] MCHC (RBC) [Mass/Vol] 33.7 g/dL 31 - 3 7 g/dL [facility] MCV (RBC) [Entitic vol] 84.1 fL 80 - 100 fL [facility] Monocytes (Bld) [#/Vol] 1.03 10*3/uL High [facility] Monocytes/100 WBC (Bld) 8.5 % [facility] Neutrophils (Bld) [#/Vol] 6.83 10*3/uL [facility] Neutrophils/100 WBC (Bld) 56.0 % [facility] Nucleated RBC (Bld) [#/Vol] 0.00 10*3/uL [facility] Nucleated RBC/100 WBC (Bld) [Ratio] 0.0 % [facility] Platelet mean volume (Bld) [Entitic vol] 10.3 fL 9 - 15.5 fL [facility] Platelets (Bld) [#/Vol] 239 10*3/uL [facility] RBC (Bld) [#/Vol] 5.04 10*6/uL [facility] WBC (Bld) [#/Vol] 12.17 10*3/uL [facility] Complete PFT Dr. Javi high 01-23-2019 DLCO %Pre Predicted 71 % [facility] DLCO Pre 21.5 mL/mmHg/mi n [facility] DLCO Predicted 30.1 mL/mmHg/mi n [facility] DLCO/VA %Pre Predicted 103 % [facility] DLCO/VA Pre 4.09 mL/mmHg/mi n/L [facility] DLCO/VA Predicted 3.97 mL/mmHg/mi n/L [facility] ERV Pre 0.71 Liters [facility] FEV1 %Change 3 % [facility] FEV1 %Post Predicted 81 % [facility] FEV1 %Pre Predicted 79 % [facility] FEV1 Post 2.88 Liters [facility] FEV1 Pre 2.80 Liters [facility] FEV1 Predicted 3.54 Liters [facility] FEV1/FVC %Change 3 % [facility] FEV1/FVC %Post Predicted 90 % [facility] FEV1/FVC %Pre Predicted 87 % [facility] FEV1/FVC Post 70 % [facility] FEV1/FVC Pre 68 % [facility] FEV1/FVC Predicted 78 % [facility] alth FRC PL %Pre Predicted 125 % [facility] FRC PL Pre 3.11 Liters [facility] FRC PL Predicted 2.49 Liters [facility] FVC %Change 0 % [facility] FVC %Post Predicted 91 % [facility] FVC %Pre Predicted 91 % [facility] FVC Post 4.11 Liters [facility] FVC Pre 4.10 Liters [facility] FVC Predicted 4.50 Liters [facility] RV %Pre Predicted 128 % [facility] lt RV Pre 2.41 Liters [facility] RV Predicted 1.88 Liters [facility] TLC %Pre Predicted 112 % [facility] TLC Pre 6.58 Liters [facility] TLC Predicted 5.90 Liters [facility] VC %Pre Predicted 93 % [facility] VC Pre 4.17 Liters [facility] VC Predicted 4.50 Liters [facility] INTERPRETATION: ATS Guidelines met. Good patient effort. Spirometry shows borderline/very mild obstruction that appears fixed. Lung volumes are normal. Diffusion capacity uncorrected for hemoglobin is mildly reduced, but does correct when alveolar volumes accounted for. Early/very mild COPD. [facility] POC Glucoseon 01-23-2019 Glucose [Mass/Vol] 163 mg/dL High 65 - 99 mg/dL [facility] Interpretation and review of laboratory results Abnormal [facility] Glucose [Mass/Vol] 110 mg/dL High 65 - 99 mg/dL [facility] Interpretation and review of laboratory results Abnormal [facility] Glucose [Mass/Vol] 106 mg/dL High 65 - 99 mg/dL [facility] Interpretation and review of laboratory results Abnormal [facility] Upper Respiratory Aerobic Cu ltureon 01-23-2019 Bacteria identified Aer cx Nom (Nose) Light Growth Staphylococcus aureus Abnormal [facility] Comment on above: This Staphylococcus aureus is Methicillin SUSCEPTIBLE by PBP2a testing. Beta-lactams like Cefazolin and Nafcillin are superior to Vancomycin for treating mSsa. Interpretation and review of laboratory results Abnormal [facility] Urine Aerobic Cultureon 01-12 Bacteria identified Aer cx Nom (Unsp spec) 10,000-49,000 CFU/mL Staphylococcus aureus Abnormal [facility] Interpretation and review of laboratory results Abnormal [facility] APTTon 01-22-2019 aPTT Coag (Bld) [Time] 70 s [facility] Therapeutic range fo r APTT's is 68 - 104 seconds [facility] aPTT Coag (Bld) [Time] 58 s [facility] Interpretation and review of laboratory results Abnormal [facility] Therapeutic range fo r APTT's is 68 - 104 seconds [facility] aPTT Coag (Bld) [Time] 44 s [facility] Interpretation and review of laboratory results Abnormal [facility] Therapeutic range fo r APTT's is 68 - 104 seconds [facility] Basic Metabolic Panelon 01-12 Anion gap [Moles/Vol] 12 mmol/L 10 - 2 0 mmol/L [facility] Calcium [Mass/Vol] 8.9 mg/dL 8.4 - 10. 2 mg/dL [facility] Chloride [Moles/Vol] 102 mmol/L 98 - 10 8 mmol/L [facility] Creatinine [Mass/Vol] 1.23 mg/dL 0.5 - 1.3 mg/dL [facility] GFR/1.73 sq M.predicted CKD-EPI (S/P/Bld) [Vol rate/Area] 69 >=60 mL/min/1.7 3 m2 [facility] Glucose [Mass/Vol] 125 mg/dL High 65 - 99 mg/dL [facility] HCO3 [Moles/Vol] 25 mmol/L 21 - 32 mmol/L [facility] Interpretation and review of laboratory results Abnormal [facility] Potassium [Moles/Vol] 3.9 mmol/L 3.5 - 5.1 mmol/L [facility] Sodium [Moles/Vol] 135 mmol/L 135 - 145 mmol/L [facility] Urea nitrogen [Mass/Vol] 26 mg/dL High 8 - 25 mg/dL [facility] Urea nitrogen/Creatinine [Mass ratio] 21.1 mg/mg High [facility] The eGFR should be u sed for monitoring renal function only and not for medication dosing. [facility] CBC WITH AUTO DIFFERENTIALon 01-22-2019 Basophils (Bld) [#/Vol] 0.08 10*3/uL [facility] Basophils/100 WBC (Bld) 0.7 % [facility] Eosinophils (Bld) [#/Vol] 0.74 10*3/uL High [facility] Eosinophils/100 WBC (Bld) 6.5 % [facility] Erythrocyte distribution width (RBC) [Entitic vol] 14.0 % 11.6 - 14.8 % [facility] Hematocrit (Bld) [Volume fraction] 41.8 % 41 - 53 % [facility] Hemoglobin (Bld) [Mass/Vol] 13.5 g/dL 13.5 - 17.5 g/dL [facility] Immature granulocytes (Bld) [#/Vol] 0.15 10*3/uL [facility] Immature granulocytes/100 WBC (Bld) 1.30 % [facility] Comment on above: The IG parameter is the percentage of metamyelocytes, myelocytes, and promyelocytes. Interpretation and review of laboratory results Abnormal [facility] Lymphocytes (Bld) [#/Vol] 3.52 10*3/uL [facility] Lymphocytes/100 WBC (Bld) 30.9 % [facility] MCH (RBC) [Entitic mass] 27.4 pg 26 - 34 pg [facility] MCHC (RBC) [Mass/Vol] 32.3 g/dL 31 - 3 7 g/dL [facility] MCV (RBC) [Entitic vol] 85.0 fL 80 - 100 fL [facility] Monocytes (Bld) [#/Vol] 0.93 10*3/uL [facility] Monocytes/100 WBC (Bld) 8.2 % [facility] Neutrophils (Bld) [#/Vol] 5.96 10*3/uL [facility] Neutrophils/100 WBC (Bld) 52.4 % [facility] Nucleated RBC (Bld) [#/Vol] 0.00 10*3/uL [facility] Nucleated RBC/100 WBC (Bld) [Ratio] 0.0 % [facility] Platelet mean volume (Bld) [Entitic vol] 10.0 fL 9 - 15.5 fL [facility] Platelets (Bld) [#/Vol] 237 10*3/uL [facility] RBC (Bld) [#/Vol] 4.92 10*6/uL [facility] ealth WBC (Bld) [#/Vol] 11.38 10*3/uL [facility] DRUGS OF ABUSE SCREEN, URINE on 01-22-2019 Amphetamines Ql (U) None Detected None Detected [facility] Comment on above: Urine Amphetamine Cu toff: < 1000 ng/mL = None Detected Barbiturates Screen Ql (U) None Detected None Detected [facility] Comment on above: Urine Barbiturates C utoff: < 200 ng/mL = None Detected Benzodiazepines Ql (U) None Detected None Detected [facility] Comment on above: Urine Benzodiazepine Cutoff: < 200 ng/mL = None Detected Cannabinoids Screen Ql (U) None Detected None Detected [facility] Comment on above: Urine Cannabinoids C utoff: < 50 ng/mL = None Detected Cocaine Ql (U) None Detected None Detected [facility] Comment on above: Urine Cocaine Cutoff : < 300 ng/mL = None Detected Interpretation and review of laboratory results Normal [facility] Methadone Screen Ql (U) None Detected Non e Detected [facility] Comment on above: Urine Methadone Cuto ff: < 300 ng/mL = None Detected Opiates Screen Ql (U) None Detected None Detected [facility] Comment on above: Urine Opiates Cutoff : < 300 ng/mL = None Detected Oxycodone Ql (U) None Detected None Detected [facility] Comment on above: Urine Oxycodone Cuto ff: < 100 ng/mL = None Detected Screen results shoul d be used for treatment purposes only. [facility] Otheron 01-22-2019 Interpretation and review of laboratory results Abnormal [facility] POC Glucoseon 01-22-2019 Glucose [Mass/Vol] 142 mg/dL High 65 - 99 mg/dL [facility] Interpretation and review of laboratory results Abnormal [facility] Glucose [Mass/Vol] 107 mg/dL High 65 - 99 mg/dL [facility] Glucose [Mass/Vol] 116 mg/dL High 65 - 99 mg/dL [facility] Interpretation and review of laboratory results Abnormal [facility] URINALYSISon 01-22-2019 Bacteria Auto Ql (U) None Seen None Se en /hpf [facility] Bilirubin Ql (U) Negative Negative [facility] th Clarity Refractometry automated (U) Clear Clear [facility] Color (U) Colorless Colorless, Yellow [facility] Glucose Auto test strip (U) [Mass/Vol] Negative Negative mg/dL [facility] Hemoglobin Auto test strip Ql (U) Negative Negative [facility] Interpretation and review of laboratory results Normal [facility] Ketones (U) [Mass/Vol] Negative Negat bryan mg/dL [facility] Leukocyte esterase Auto test strip Ql (U) Negative Negative [facility] Nitrite Auto test strip Ql (U) Negative Negative [facility] pH (U) 6.0 [pH] [facility] Protein (U) [Mass/Vol] Negative Negat bryan mg/dL [facility] RBC Auto (Urine sed) [#/Area] <1 [facility] Specific gravity (U) [Rel density] 1.008 [facility] Urobilinogen (U) [Mass/Vol] <2.0 <2.0 mg/dL [facility] WBC Auto (Urine sed) [#/Area] <1 [facility] Microscopic examinat ion is performed on all urinalysis samples and only positive findings are reported. The test for blood on the chemical analytic portion of urinalysis may also be positive due to hemoglobinuria and myoglobinuria and if red blood cells are present they are quantified by microscopic examination. [facility] APTTon 01-21-2019 aPTT Coag (Bld) [Time] 30 s [facility] Interpretation and review of laboratory results Normal [facility] Therapeutic range fo r APTT's is 68 - 104 seconds [facility] Basic Metabolic Panelon 01-12 Anion gap [Moles/Vol] 11 mmol/L 10 - 2 0 mmol/L [facility] Calcium [Mass/Vol] 9.1 mg/dL 8.4 - 10. 2 mg/dL [facility] Chloride [Moles/Vol] 102 mmol/L 98 - 10 8 mmol/L [facility] Creatinine [Mass/Vol] 1.11 mg/dL 0.5 - 1.3 mg/dL [facility] GFR/1.73 sq M.predicted CKD-EPI (S/P/Bld) [Vol rate/Area] 79 >=60 mL/min/1.7 3 m2 [facility] Glucose [Mass/Vol] 116 mg/dL High 65 - 99 mg/dL [facility] HCO3 [Moles/Vol] 26 mmol/L 21 - 32 mmol/L [facility] Interpretation and review of laboratory results Abnormal [facility] Potassium [Moles/Vol] 4.0 mmol/L 3.5 - 5.1 mmol/L [facility] Sodium [Moles/Vol] 135 mmol/L 135 - 145 mmol/L [facility] Urea nitrogen [Mass/Vol] 22 mg/dL 8 - 25 mg/dL [facility] Urea nitrogen/Creatinine [Mass ratio] 19.8 mg/mg [facility] The eGFR should be u sed for monitoring renal function only and not for medication dosing. [facility] CBC WITH AUTO DIFFERENTIALon 01-21-2019 Basophils (Bld) [#/Vol] 0.07 10*3/uL [facility] Basophils/100 WBC (Bld) 0.6 % [facility] Eosinophils (Bld) [#/Vol] 0.69 10*3/uL High [facility] Eosinophils/100 WBC (Bld) 6.1 % [facility] Erythrocyte distribution width (RBC) [Entitic vol] 14.0 % 11.6 - 14.8 % [facility] Hematocrit (Bld) [Volume fraction] 43.6 % 41 - 53 % [facility] Hemoglobin (Bld) [Mass/Vol] 14.2 g/dL 13.5 - 17.5 g/dL [facility] Immature granulocytes (Bld) [#/Vol] 0.14 10*3/uL [facility] Immature granulocytes/100 WBC (Bld) 1.20 % [facility] Comment on above: The IG parameter is the percentage of metamyelocytes, myelocytes, and promyelocytes. Interpretation and review of laboratory results Abnormal [facility] Lymphocytes (Bld) [#/Vol] 2.23 10*3/uL [facility] Lymphocytes/100 WBC (Bld) 19.8 % [facility] MCH (RBC) [Entitic mass] 27.6 pg 26 - 34 pg [facility] MCHC (RBC) [Mass/Vol] 32.6 g/dL 31 - 3 7 g/dL [facility] MCV (RBC) [Entitic vol] 84.7 fL 80 - 100 fL [facility] Monocytes (Bld) [#/Vol] 0.98 10*3/uL [facility] Monocytes/100 WBC (Bld) 8.7 % [facility] Neutrophils (Bld) [#/Vol] 7.17 10*3/uL [facility] Neutrophils/100 WBC (Bld) 63.6 % [facility] Nucleated RBC (Bld) [#/Vol] 0.00 10*3/uL [facility] Nucleated RBC/100 WBC (Bld) [Ratio] 0.0 % [facility] Platelet mean volume (Bld) [Entitic vol] 9.9 fL 9 - 15.5 fL [facility] Platelets (Bld) [#/Vol] 267 10*3/uL [facility] RBC (Bld) [#/Vol] 5.15 10*6/uL [facility] ealt WBC (Bld) [#/Vol] 11.28 10*3/uL [facility] ECHOCARDIOGRAM 2D COMPLETEon 01-21-[address] [address] [place] [address] ----- ECHOCARDIOGRAPHY REPORT - [facility] ----- Name: FERNANDO Priyanka HELTON Age: 48 years Date: 01/21/2019 [facility] #: [id number] : 1970 Room: [facility] Rec #: [id number] Sex: M Tech: Emma Tsai Ordering Physician: [id number] KRISTIN ABRAHAM TITLEY Height: 67.00 Sys BP: 119 in cc: , Weight: 257.00 Mira BP: 78 Reading Physician: [id number] Durán/ Rhythm: Sinus Electronically Signed by: [id number] Durán BSA: 2.25 m on: 01/21/2019 Reason for Study: CAD History: Conclusions: 1. Mildly dilated left ventricle with basal septal wall hypertrophy measuring 1.5 cm in maximal thickness. Mild segmental left ventricular systolic dysfunction with estimated LVEF 45-50%. Wall motion abnormalities as outlined below. 2. Impaired LV relaxation. 3. Dilated right ventricle with grossly normal systolic function. 4. No hemodynamically significant valvular disease. 5. Mildly dilated aortic root measuring 4 cm. Findings: 1. Quality: Technically fair study. 2. Left Ventricle: Mildly dilated left ventricle. Basal septal wall hypertrophy. Mild segmental left ventricular systolic dysfunction with estimated LVEF 45-50%. Impaired LV relaxation. There is akinesis of the mid-distal anterior, anteroseptal and apical cui. There is hypokinesis of the mid-distal anterolateral cui. The remaining segments appear hyperdynamic. 3. Left Atrium: Grossly normal. 4. Right Ventricle: Dilated right ventricle. Grossly normal systolic function. 5. Right Atrium: Grossly normal. 6. Aortic Valve: Trileaflet aortic valve. No hemodynamically significant stenosis or regurgitation. 7. Mitral Valve: Mitral annular calcification. Normal mitral valve leaflet mobility. No hemodynamically significant regurgitation or stenosis. 8. Tricuspid Valve: Normal tricuspid valve leaflets. Trivial tricuspid regurgitation. No hemodynamically significant stenosis. 9. Pulmonic Valve: Normal pulmonary valve leaflets. No hemodynamically significant stenosis or regurgitation. 10. Aortic Root: Mildly dilated aortic root (4 cm). 11. Venous: Normal caliber IVC. 12. Pericardium: No pericardial effusion. Prominent epicardial fat. 13. Other: Patient Values (normal ranges in parenthesis) 2-D Doppler RVd (< 4.2) LVOT Diam 2.4 cm IVSd 1.49 cm JENNIFER 3.86 cm AV Vmax 1.2 m/s LVd 4.26 cm (4.2 - 5.8 Male) AV mean grad. 3.0 mmHg (3.8 - 5.2 Female) AV peak grad. 6.0 mmHg LVPWd 1.19 cm LVs 3.18 cm (2.5 - 3.6 Male) AR Vena Contracta (2.2 - 3.5 Female) MV A Vmax 0.79 m/s Ao Root Diameter (< 3.7 Male) MVA 3.79 cm2 (<3.3 Female) Ao Root Diameter (< 3.7 Male) MV E Vmax 0.7 m/s (<3.3 Female) Ao Root d 2D 4.00 cm MV E/A ratio 0.9 LVEF 50 % (50 - 70) MV P1/2T LVFS 25 % (28 - 41) MR ERO LV mass index 95 g/m (< 115 Male) RVSP (< 95 Female) RVFW S' RWT 0.56 (< .42) TR Vmax LVEF MOD 4C 51.8 % RA Pressure 8 mmHg LVEF MOD 2C 49.2 % LVEF Biplane 49.6 % (52 - 72 Male) PV Vmax 1.10 m/s (54 - 74 Female) LA Index (BP) 17.6 ml/m [facility] EXECUTIVE DIRECTOR NOTES: Definity (if used): 3ml Final [facility] Keith Robin In [facility] [employer] [employer]ch[employer] - 01/21/2019 3:[address] [address] [place] [address] ----- ECHOCARDIOGRAPHY REPORT - [facility] ----- Name: FERNANDO HELTON Age: 48 years Date: 01/21/2019 Hospital #: [id number] : 1970 Room: [facility] Rec #: [id number] Sex: M Tech: Emma Tsai Ordering Physician: [id number] KRISTIN ABRAHAM TITLEY Height: 67.00 Sys BP: 119 in cc: , Weight: 257.00 Mira BP: 78 Reading Physician: [id number] Magda Durán/ Rhythm: Sinus Electronically Signed by: [id number] Magda Durán BSA: 2.25 m on: 01/21/2019 Reason for Study: CAD History: Conclusions: 1. Mildly dilated left ventricle with basal septal wall hypertrophy measuring 1.5 cm in maximal thickness. Mild segmental left ventricular systolic dysfunction with estimated LVEF 45-50%. Wall motion abnormalities as outlined below. 2. Impaired LV relaxation. 3. Dilated right ventricle with grossly normal systolic function. 4. No hemodynamically significant valvular disease. 5. Mildly dilated aortic root measuring 4 cm. Findings: 1. Quality: Technically fair study. 2. Left Ventricle: Mildly dilated left ventricle. Basal septal wall hypertrophy. Mild segmental left ventricular systolic dysfunction with estimated LVEF 45-50%. Impaired LV relaxation. There is akinesis of the mid-distal anterior, anteroseptal and apical cui. There is hypokinesis of the mid-distal anterolateral cui. The remaining segments appear hyperdynamic. 3. Left Atrium: Grossly normal. 4. Right Ventricle: Dilated right ventricle. Grossly normal systolic function. 5. Right Atrium: Grossly normal. 6. Aortic Valve: Trileaflet aortic valve. No hemodynamically significant stenosis or regurgitation. 7. Mitral Valve: Mitral annular calcification. Normal mitral valve leaflet mobility. No hemodynamically significant regurgitation or stenosis. 8. Tricuspid Valve: Normal tricuspid valve leaflets. Trivial tricuspid regurgitation. No hemodynamically significant stenosis. 9. Pulmonic Valve: Normal pulmonary valve leaflets. No hemodynamically significant stenosis or regurgitation. 10. Aortic Root: Mildly dilated aortic root (4 cm). 11. Venous: Normal caliber IVC. 12. Pericardium: No pericardial effusion. Prominent epicardial fat. 13. Other: Patient Values (normal ranges in parenthesis) 2-D Doppler RVd (< 4.2) LVOT Diam 2.4 cm IVSd 1.49 cm JENNIFER 3.86 cm AV Vmax 1.2 m/s LVd 4.26 cm (4.2 - 5.8 Male) AV mean grad. 3.0 mmHg (3.8 - 5.2 Female) AV peak grad. 6.0 mmHg LVPWd 1.19 cm LVs 3.18 cm (2.5 - 3.6 Male) AR Vena Contracta (2.2 - 3.5 Female) MV A Vmax 0.79 m/s Ao Root Diameter (< 3.7 Male) MVA 3.79 cm2 (<3.3 Female) Ao Root Diameter (< 3.7 Male) MV E Vmax 0.7 m/s (<3.3 Female) Ao Root d 2D 4.00 cm MV E/A ratio 0.9 LVEF 50 % (50 - 70) MV P1/2T LVFS 25 % (28 - 41) MR ERO LV mass index 95 g/m (< 115 Male) RVSP (< 95 Female) RVFW S' RWT 0.56 (< .42) TR Vmax LVEF MOD 4C 51.8 % RA Pressure 8 mmHg LVEF MOD 2C 49.2 % LVEF Biplane 49.6 % (52 - 72 Male) PV Vmax 1.10 m/s (54 - 74 Female) LA Index (BP) 17.6 ml/m [facility] EXECUTIVE DIRECTOR NOTES: Definity (if used): 3ml Final IMPRESSION: 1. Mildly dilated left ventricle with basal septal wall hypertrophy measuring 1.5 cm in maximal thickness. Mild segmental left ventricular systolic dysfunction with estimated LVEF 45-50%. Wall motion abnormalities as outlined below. [facility] 1. Mildly dilated le ft ventricle with basal septal wall hypertrophy measuring 1.5 cm in maximal thickness. Mild segmental left ventricular systolic dysfunction with estimated LVEF 45-50%. Wall motion abnormalities as outlined below. [facility] POC Glucoseon 01-21-2019 Glucose [Mass/Vol] 147 mg/dL High 65 - 99 mg/dL [facility] Interpretation and review of laboratory results Abnormal [facility] Glucose [Mass/Vol] 176 mg/dL High 65 - 99 mg/dL [facility] Interpretation and review of laboratory results Abnormal [facility] Glucose [Mass/Vol] 119 mg/dL High 65 - 99 mg/dL [facility] Interpretation and review of laboratory results Abnormal [facility] XR CHEST AP/PA AND LATon Interface, Rad In Fu ji Speechq - 01/21/2019 3:42 PM EST EXAMINATION: XR CHEST AP/PA AND LAT 01/21/2019 11:35 am HISTORY: ORDERING SYSTEM PROVIDED HISTORY: SOB; CAD, TECHNOLOGIST PROVIDED HISTORY: Illness/Other Reason for exam: sob/ cad Cancer History: u Surgery, RadiationHistory: yes Encounter Type: Initial Additional signs and symptoms: . ORDERING SYSTEM PROVIDED DIAGNOSIS CODES: R07.89 Chest pain, atypical COMPARISON: 01/17/2019 FINDINGS: Upright frontal and lateral views of the chest were obtained. The cardiomediastinal silhouette is unremarkable. There is no pneumothorax, pleural effusion, focal airspace consolidation, or pulmonary vascular congestion. IMPRESSION: No acute cardiopulmonary disease. Workstation ID: [id number] [facility] EXAMINATION: XR CHES T AP/PA AND LAT 01/21/2019 11:35 am HISTORY: ORDERING SYSTEM PROVIDED HISTORY: SOB; CAD, TECHNOLOGIST PROVIDED HISTORY: Illness/Other Reason for exam: sob/ cad Cancer History: u Surgery, RadiationHistory: yes Encounter Type: Initial Additional signs and symptoms: . ORDERING SYSTEM PROVIDED DIAGNOSIS CODES: R07.89 Chest pain, atypical COMPARISON: 01/17/2019 FINDINGS: Upright frontal and lateral views of the chest were obtained. The cardiomediastinal silhouette is unremarkable. There is no pneumothorax, pleural effusion, focal airspace consolidation, or pulmonary vascular congestion. [facility] No acute cardiopulmo nary disease. Workstation ID: [id number] [facility] ABORH VERIFICATIONon 019 ABO and Rh group Nom (Bld) ABO/Rh Verification [facility] ABO and Rh group Nom (Bld) O Negative [facility] Patient's ABO/Rh is verified. [facility] AMYLASEon 01-20-2019 Amylase [Catalytic activity/Vol] 38 U/L 25 - 115 U/L [facility] APTTon 01-20-2019 aPTT Coag (Bld) [Time] 61 s High [facility] Interpretation and review of laboratory results Abnormal [facility] Therapeutic range fo r APTT's is 68 - 104 seconds [facility] Basic Metabolic Panelon Anion gap [Moles/Vol] 12 mmol/L 10 - 2 0 mmol/L [facility] Calcium [Mass/Vol] 8.3 mg/dL Low 8.4 - 10. 2 mg/dL [facility] Chloride [Moles/Vol] 106 mmol/L 98 - 10 8 mmol/L [facility] Creatinine [Mass/Vol] 1.17 mg/dL 0.5 - 1.3 mg/dL [facility] GFR/1.73 sq M.predicted CKD-EPI (S/P/Bld) [Vol rate/Area] 74 >=60 mL/min/1.7 3 m2 [facility] Glucose [Mass/Vol] 134 mg/dL High 65 - 99 mg/dL [facility] HCO3 [Moles/Vol] 24 mmol/L 21 - 32 mmol/L [facility] Interpretation and review of laboratory results Abnormal [facility] Potassium [Moles/Vol] 3.9 mmol/L 3.5 - 5.1 mmol/L [facility] Sodium [Moles/Vol] 138 mmol/L 135 - 145 mmol/L [facility] Urea nitrogen [Mass/Vol] 19 mg/dL 8 - 25 mg/dL [facility] Urea nitrogen/Creatinine [Mass ratio] 16.2 mg/mg [facility] The eGFR should be u sed for monitoring renal function only and not for medication dosing. [facility] CARDIAC CATHETERIZATIONon Cardiac Catheterizat ion Operative Report Patient: Fernando Helton Date: 01/20/2019 @PCP@ Procedure: Left Heart Catheterization,Left ventricular angiography, Selective coronary angiography This is a 48 y.o.male who was referred for cardiac catheterization. Indications for the procedure include: chest pain. Procedure Details The risks, benefits and alternatives to the planned procedure were reviewed with the patient, informed consent was obtained and placed in the chart. Patient was brought to the [facility] and prepped and draped in usual sterile fashion. Using a modified Seldinger technique under ultrasound guidance right common femoral artery access was attempted. The introducer wire did not go across the right external iliac suggestive of occlusion (this is consistent with severe claudication history patient reported in the right leg for last at least 1 year). After this we did a ultrasound-guided access through the left common femoral artery using a modified Seldinger technique. A 5 Mexican sheath was placed. JL4 and JR4 catheter were used to selectively engage the left and right coronary artery. The JR catheter was also used to record LVDP and do an LV gram. After completion of procedure adequate hemostasis obtained using manual compression. During the procedure all catheter advances and exchanges were performed over a soft J-wire. No immediate complications were noted. Impression and Recommendations: Single-vessel coronary artery disease In-stent occlusion of LAD and mid segment Moderate LV systolic dysfunction with hypokinesis of mid to distal anterior wall Elevated LVEDP of 32 mmHg Recommendations: -CT surgery consult for single-vessel CABG-SPARKS to LAD -Hold Effient -Continue aspirin, statin -Hold heparin for at least 8 hours -Bedrest for at least 6 hours -Start Lasix 20 mg IV twice daily-first dose today at 1600 hrs. -Echocardiogram Findings: Hemodynamics opening aortic pressure 134/86 mmHg LV overall LVEF of 45% with anterior wall hypokinesis, LVEDP of 32 mmHg Left Main normal RCA mild diffuse disease in proximal and mid segment LAD occluded mid LAD stent, distal segment fills via right to left collaterals Circ normal , large bifurcating OM1 Closure Device manual Complications no immediate complications Estimated Blood Loss: less than 50 mL Complications: None; patient tolerated the procedure well. Disposition: Psychiatric Bed Condition: stable Electronically Signed by: Carlo Mercedes M.D 01/20/19 9:09 AM [facility] CBC WITH AUTO DIFFERENTIALon 01-20-2019 Basophils (Bld) [#/Vol] 0.08 10*3/uL [facility] Basophils/100 WBC (Bld) 0.6 % [facility] Eosinophils (Bld) [#/Vol] 0.76 10*3/uL High [facility] Eosinophils/100 WBC (Bld) 5.7 % [facility] Erythrocyte distribution width (RBC) [Entitic vol] 14.2 % 11.6 - 14.8 % [facility] Hematocrit (Bld) [Volume fraction] 41.2 % 41 - 53 % [facility] Hemoglobin (Bld) [Mass/Vol] 13.6 g/dL 13.5 - 17.5 g/dL [facility] Immature granulocytes (Bld) [#/Vol] 0.10 10*3/uL [facility] Immature granulocytes/100 WBC (Bld) 0.70 % [facility] Comment on above: The IG parameter is the percentage of metamyelocytes, myelocytes, and promyelocytes. Interpretation and review of laboratory results Abnormal [facility] Lymphocytes (Bld) [#/Vol] 3.59 10*3/uL [facility] Lymphocytes/100 WBC (Bld) 26.7 % [facility] MCH (RBC) [Entitic mass] 28.2 pg 26 - 34 pg [facility] MCHC (RBC) [Mass/Vol] 33.0 g/dL 31 - 3 7 g/dL [facility] MCV (RBC) [Entitic vol] 85.3 fL 80 - 100 fL [facility] Monocytes (Bld) [#/Vol] 1.01 10*3/uL [facility] Monocytes/100 WBC (Bld) 7.5 % [facility] Neutrophils (Bld) [#/Vol] 7.90 10*3/uL High [facility] Neutrophils/100 WBC (Bld) 58.8 % [facility] Nucleated RBC (Bld) [#/Vol] 0.00 10*3/uL [facility] Nucleated RBC/100 WBC (Bld) [Ratio] 0.0 % [facility] Platelet mean volume (Bld) [Entitic vol] 10.1 fL 9 - 15.5 fL [facility] Platelets (Bld) [#/Vol] 259 10*3/uL [facility] RBC (Bld) [#/Vol] 4.83 10*6/uL [facility] ealth WBC (Bld) [#/Vol] 13.44 10*3/uL [facility] EKGon 01-20-2019 Ordered by an unspec ified provider. [facility] Hemoglobin A1con 01-20-2019 Average glucose Estimated from glycated hemoglobin mass conc (Bld) 140 mg/dL High 68 - 114 mg/dL [facility] HbA1c (Bld) [Mass fraction] 6.5 % High 4 - 5.6 % [facility] Interpretation and review of laboratory results Abnormal [facility] Normal: 4.0% - 5.6% Increased risk for diabetes: 5.7% - 6.4% Diabetes: >= 6.5% Pediatrics: No established reference range Estimated average glucose: 68-114 mg/dL [facility] Hepatic Function Panelon Albumin [Mass/Vol] 3.1 g/dL Low 3.2 - 5.2 g/dL [facility] ALP [Catalytic activity/Vol] 68 U/L 40 - 150 U/L [facility] ALT [Catalytic activity/Vol] 79 U/L High 14 - 65 U/L [facility] AST [Catalytic activity/Vol] 42 U/L 0 - 45 U/L [facility] Bilirubin [Mass/Vol] 0.7 mg/dL 0 - 1.3 mg/dL [facility] Bilirubin.conjugated [Mass/Vol] 0.1 mg/dL 0 - 0.4 mg/dL [facility] Protein [Mass/Vol] 6.3 g/dL 6 - 8 g/dL [facility]th Otheron 01-20-2019 Interpretation and review of laboratory results Normal [facility] Interpretation and review of laboratory results Abnormal [facility] POC ARTERIAL BLOOD GAS PANEL -PULM - RALSon 01-20-2019 Alveolar-arterial oxygen Partial pressure difference 24.0 mm Hg [facility] Base excess Calc (Bld) [Moles/Vol] 0.6 mmol/L [facility] Breath rate setting Ventilator synchronized intermittent mandatory [address] [facility] h CO2 (Bld) [Partial pressure] 41.3 mm[Hg] [facility] HCO3 (Bld) [Moles/Vol] 25.5 mmol/L 22 - 26 mmol/L [facility] Hematocrit (BldA) [Volume fraction] 43.1 % 41 - 53 % [facility] Hemoglobin (Bld) [Mass/Vol] 14.1 g/dL 13.5 - 18 g/dL [facility] Inhaled oxygen concentration 21 % [facility] Interpretation and review of laboratory results Abnormal [facility] Oxygen (Bld) [Partial pressure] 70 mm[Hg] Low [facility] pH (Bld) 7.40 [pH] [facility] SaO2% (BldA) [Mass fraction] 94.5 % 92 - 99 % [facility] Specimen source Nom (Unsp spec) Radial, left [facility] Tidal volume setting Ventilator 0 [facility] PT/INRon 01-20-2019 INR Coag (PPP) [Relative time] 1.0 {INR} [facility] Interpretation and review of laboratory results Normal [facility] PT Coag (PPP) [Time] 12.7 s [facility] During the induction phase of oral anticoagulation, the INR may not reflect the anticoagulation status of the patient. Therapeutic ranges for INR's are: Most clinical situations: INR 2.0-3.0 Mechanical Prosthetic Valve: INR 2.5-3.5 Critical: INR >5.0 [facility] Prealbuminon 01-20-2019 Prealbumin [Mass/Vol] 19.7 mg/dL Low 20 - 4 0 mg/dL [facility] T4, Freeon 01-20-2019 Free T4 [Mass/Vol] 1.0 ng/dL 0.7 - 1.7 ng/dL [facility] TSHon 01-20-2019 TSH Qn 1.15 m[IU]/L [facility] Type and Screenon 01-20-2019 ABO and Rh group Nom (Bld) O Negative [facility] Blood group antibody screen Ql Negative [facility] Specimen Expires 01/23/2019 23:59 EST [facility] APTTon 01-19-2019 aPTT Coag (Bld) [Time] 79 s High [facility] Interpretation and review of laboratory results Abnormal [facility] Therapeutic range fo r APTT's is 68 - 104 seconds [facility] aPTT Coag (Bld) [Time] 85 s High [facility] Interpretation and review of laboratory results Abnormal [facility] Therapeutic range fo r APTT's is 68 - 104 seconds [facility] aPTT Coag (Bld) [Time] 89 s High [facility] Interpretation and review of laboratory results Abnormal [facility] Therapeutic range fo r APTT's is 68 - 104 seconds [facility] Basic Metabolic Panelon Anion gap [Moles/Vol] 11 mmol/L 10 - 2 0 mmol/L [facility] Calcium [Mass/Vol] 8.6 mg/dL 8.4 - 10. 2 mg/dL [facility] Chloride [Moles/Vol] 108 mmol/L 98 - 10 8 mmol/L [facility] Creatinine [Mass/Vol] 1.15 mg/dL 0.5 - 1.3 mg/dL [facility] GFR/1.73 sq M.predicted CKD-EPI (S/P/Bld) [Vol rate/Area] 75 >=60 mL/min/1.7 3 m2 [facility] Glucose [Mass/Vol] 121 mg/dL High 65 - 99 mg/dL [facility] HCO3 [Moles/Vol] 25 mmol/L 21 - 32 mmol/L [facility] Interpretation and review of laboratory results Abnormal [facility] Potassium [Moles/Vol] 4.0 mmol/L 3.5 - 5.1 mmol/L [facility] Sodium [Moles/Vol] 140 mmol/L 135 - 145 mmol/L [facility] Urea nitrogen [Mass/Vol] 19 mg/dL 8 - 25 mg/dL [facility] Urea nitrogen/Creatinine [Mass ratio] 16.5 mg/mg [facility] The eGFR should be u sed for monitoring renal function only and not for medication dosing. [facility] CBCon 01-19-2019 Erythrocyte distribution width (RBC) [Entitic vol] 14.1 % 11.6 - 14.8 % [facility] Hematocrit (Bld) [Volume fraction] 41.6 % 41 - 53 % [facility] Hemoglobin (Bld) [Mass/Vol] 13.8 g/dL 13.5 - 17.5 g/dL [facility] Interpretation and review of laboratory results Abnormal [facility] MCH (RBC) [Entitic mass] 28.1 pg 26 - 34 pg [facility] MCHC (RBC) [Mass/Vol] 33.2 g/dL 31 - 3 7 g/dL [facility] MCV (RBC) [Entitic vol] 84.7 fL 80 - 100 fL [facility] Nucleated RBC (Bld) [#/Vol] 0.00 10*3/uL [facility] Nucleated RBC/100 WBC (Bld) [Ratio] 0.0 % [facility] Platelet mean volume (Bld) [Entitic vol] 10.0 fL 9 - 15.5 fL [facility] Platelets (Bld) [#/Vol] 258 10*3/uL [facility] RBC (Bld) [#/Vol] 4.91 10*6/uL [facility] ealth WBC (Bld) [#/Vol] 14.77 10*3/uL [facility] CBC WITH AUTO DIFFERENTIALon 01-19-2019 Basophils (Bld) [#/Vol] 0.08 10*3/uL [facility] Basophils/100 WBC (Bld) 0.6 % [facility] Eosinophils (Bld) [#/Vol] 0.74 10*3/uL High [facility] Eosinophils/100 WBC (Bld) 5.6 % [facility] Erythrocyte distribution width (RBC) [Entitic vol] 14.3 % 11.6 - 14.8 % [facility] Hematocrit (Bld) [Volume fraction] 41.6 % 41 - 53 % [facility] Hemoglobin (Bld) [Mass/Vol] 13.7 g/dL 13.5 - 17.5 g/dL [facility] Immature granulocytes (Bld) [#/Vol] 0.10 10*3/uL [facility] Immature granulocytes/100 WBC (Bld) 0.80 % [facility] Comment on above: The IG parameter is the percentage of metamyelocytes, myelocytes, and promyelocytes. Interpretation and review of laboratory results Abnormal [facility] Lymphocytes (Bld) [#/Vol] 3.57 10*3/uL [facility] Lymphocytes/100 WBC (Bld) 27.0 % [facility] MCH (RBC) [Entitic mass] 28.3 pg 26 - 34 pg [facility] MCHC (RBC) [Mass/Vol] 32.9 g/dL 31 - 3 7 g/dL [facility] MCV (RBC) [Entitic vol] 86.0 fL 80 - 100 fL [facility] Monocytes (Bld) [#/Vol] 0.92 10*3/uL [facility] Monocytes/100 WBC (Bld) 7.0 % [facility] Neutrophils (Bld) [#/Vol] 7.81 10*3/uL [facility] Neutrophils/100 WBC (Bld) 59.0 % [facility] Nucleated RBC (Bld) [#/Vol] 0.00 10*3/uL [facility] Nucleated RBC/100 WBC (Bld) [Ratio] 0.0 % [facility] Platelet mean volume (Bld) [Entitic vol] 10.1 fL 9 - 15.5 fL [facility] Platelets (Bld) [#/Vol] 256 10*3/uL [facility] RBC (Bld) [#/Vol] 4.84 10*6/uL [facility] ealth WBC (Bld) [#/Vol] 13.22 10*3/uL [facility] APTTon 01-18-2019 aPTT Coag (Bld) [Time] 65 s [facility] Interpretation and review of laboratory results Abnormal [facility] Therapeutic range fo r APTT's is 68 - 104 seconds [facility] aPTT Coag (Bld) [Time] 55 s [facility] Interpretation and review of laboratory results Abnormal [facility] Therapeutic range fo r APTT's is 68 - 104 seconds [facility] aPTT Coag (Bld) [Time] 31 s [facility] Interpretation and review of laboratory results Normal [facility] Therapeutic range fo r APTT's is 68 - 104 seconds [facility] Basic Metabolic Panelon 12- Anion gap [Moles/Vol] 9 mmol/L Low 10 - 2 0 mmol/L [facility] Calcium [Mass/Vol] 8.1 mg/dL Low 8.4 - 10. 2 mg/dL [facility] Chloride [Moles/Vol] 109 mmol/L High 98 - 10 8 mmol/L [facility] Creatinine [Mass/Vol] 1.11 mg/dL 0.5 - 1.3 mg/dL [facility] GFR/1.73 sq M.predicted CKD-EPI (S/P/Bld) [Vol rate/Area] 79 >=60 mL/min/1.7 3 m2 [facility] Glucose [Mass/Vol] 125 mg/dL High 65 - 99 mg/dL [facility] HCO3 [Moles/Vol] 24 mmol/L 21 - 32 mmol/L [facility] Potassium [Moles/Vol] 4.0 mmol/L 3.5 - 5.1 mmol/L [facility] Sodium [Moles/Vol] 138 mmol/L 135 - 145 mmol/L [facility] Urea nitrogen [Mass/Vol] 22 mg/dL 8 - 25 mg/dL [facility] Urea nitrogen/Creatinine [Mass ratio] 19.8 mg/mg [facility] The eGFR should be u sed for monitoring renal function only and not for medication dosing. [facility] CBCon 01-17-2019 Erythrocyte distribution width (RBC) [Entitic vol] 14.1 % 11.6 - 14.8 % [facility] Hematocrit (Bld) [Volume fraction] 38.7 % Low 41 - 53 % [facility] Hemoglobin (Bld) [Mass/Vol] 12.8 g/dL Low 13.5 - 17.5 g/dL [facility] Interpretation and review of laboratory results Abnormal [facility] MCH (RBC) [Entitic mass] 28.4 pg 26 - 34 pg [facility] MCHC (RBC) [Mass/Vol] 33.1 g/dL 31 - 3 7 g/dL [facility] MCV (RBC) [Entitic vol] 85.8 fL 80 - 100 fL [facility] Nucleated RBC (Bld) [#/Vol] 0.00 10*3/uL [facility] Nucleated RBC/100 WBC (Bld) [Ratio] 0.0 % [facility] Platelet mean volume (Bld) [Entitic vol] 9.9 fL 9 - 15.5 fL [facility] Platelets (Bld) [#/Vol] 227 10*3/uL [facility] RBC (Bld) [#/Vol] 4.51 10*6/uL [facility] WBC (Bld) [#/Vol] 11.26 10*3/uL [facility] CBC WITH AUTO DIFFERENTIALon 01-17-2019 Basophils (Bld) [#/Vol] 0.08 10*3/uL [facility] Basophils/100 WBC (Bld) 0.7 % [facility] Eosinophils (Bld) [#/Vol] 0.64 10*3/uL [facility] Eosinophils/100 WBC (Bld) 5.3 % [facility] Erythrocyte distribution width (RBC) [Entitic vol] 14.0 % 11.6 - 14.8 % [facility] Hematocrit (Bld) [Volume fraction] 41.5 % 41 - 53 % [facility] Hemoglobin (Bld) [Mass/Vol] 13.6 g/dL 13.5 - 17.5 g/dL [facility] Immature granulocytes (Bld) [#/Vol] 0.08 10*3/uL [facility] Immature granulocytes/100 WBC (Bld) 0.70 % [facility] Comment on above: The IG parameter is the percentage of metamyelocytes, myelocytes, and promyelocytes. Interpretation and review of laboratory results Abnormal [facility] Lymphocytes (Bld) [#/Vol] 3.37 10*3/uL [facility] Lymphocytes/100 WBC (Bld) 27.9 % [facility] MCH (RBC) [Entitic mass] 28.0 pg 26 - 34 pg [facility] MCHC (RBC) [Mass/Vol] 32.8 g/dL 31 - 3 7 g/dL [facility] MCV (RBC) [Entitic vol] 85.6 fL 80 - 100 fL [facility] Monocytes (Bld) [#/Vol] 1.02 10*3/uL [facility] Monocytes/100 WBC (Bld) 8.4 % [facility] Neutrophils (Bld) [#/Vol] 6.89 10*3/uL [facility] Neutrophils/100 WBC (Bld) 57.0 % [facility] Nucleated RBC (Bld) [#/Vol] 0.00 10*3/uL [facility] Nucleated RBC/100 WBC (Bld) [Ratio] 0.0 % [facility] Platelet mean volume (Bld) [Entitic vol] 10.0 fL 9 - 15.5 fL [facility] Platelets (Bld) [#/Vol] 269 10*3/uL [facility] RBC (Bld) [#/Vol] 4.85 10*6/uL [facility] WBC (Bld) [#/Vol] 12.08 10*3/uL [facility] D-DIMER, QUANTITATIVEon 12-0 Fibrin D-dimer FEU (PPP) [Mass/Vol] <0.27 0.27 - 0.49 mcg/mL FEU [facility] Interpretation and review of laboratory results Normal [facility] A D-dimer concentrat ion of <0.5 micrograms per milliliter FEU is considered a low probability for pulmonary embolus (PE) and deep venous thrombosis (DVT). Results of this test should always be interpreted in conjunction with the patient's medical history,clinical presentation, and other findings. Clinical diagnosis should not be based on the results of the D-dimer alone. [facility] Fibrin D-dimer FEU (PPP) [Mass/Vol] 0.30 0.27 - 0.49 mcg/mL FEU [facility] Interpretation and review of laboratory results Normal [facility] A D-dimer concentrat ion of <0.5 micrograms per milliliter FEU is considered a low probability for pulmonary embolus (PE) and deep venous thrombosis (DVT). Results of this test should always be interpreted in conjunction with the patient's medical history,clinical presentation, and other findings. Clinical diagnosis should not be based on the results of the D-dimer alone. [facility] ECG 12-LEADon 01-17-2019 Atrial Rate 73 BPM [facility] P [place] 67 degrees [facility] P-R Interval 164 ms [facility] Q-T Interval 386 ms [facility] QRS Duration 86 ms [facility] QTC Calculation (Bezet) 425 ms [facility] R [place] 2 degrees [facility] T [place] 65 degrees [facility] Ventricular Rate 73 BPM [facility] th Normal sinus rhythm Low voltage QRS Inferior infarct , age undetermined Cannot rule out Anteroseptal infarct , age undetermined Abnormal ECG ECG Cart Interpretation see physician note for interpretation. Confirmed by Brandy Kc ([id number]) on 01/17/2019 12:18:52 PM [facility] Hepatic Function Panel (LFT) on 01-17-2019 Albumin [Mass/Vol] 3.1 g/dL Low 3.2 - 5.2 g/dL [facility] ALP [Catalytic activity/Vol] 75 U/L 40 - 150 U/L [facility] ALT [Catalytic activity/Vol] 67 U/L High 14 - 65 U/L [facility] AST [Catalytic activity/Vol] 28 U/L 0 - 45 U/L [facility] Bilirubin [Mass/Vol] 0.9 mg/dL 0 - 1.3 mg/dL [facility] Bilirubin.conjugated [Mass/Vol] 0.2 mg/dL 0 - 0.4 mg/dL [facility] Protein [Mass/Vol] 6.2 g/dL 6 - 8 g/dL [facility] Lactic Acid, Plasmaon 2018 Interpretation and review of laboratory results Normal [facility] Lactate [Moles/Vol] 1.2 mmol/L 0.6 - 2 mmol/L [facility] Lipaseon 01-17-2019 Lipase [Catalytic activity/Vol] 89 U/L 73 - 393 U/L [facility] NT Pro BNPon 01-17-2019 Natriuretic peptide.B prohormone N-Terminal [Mass/Vol] 123 pg/mL 0 - 300 pg/mL [facility] Comment on above: Please note referenc e range change as of 01/30/18. [employer] Cut-offs Rule In: < /= 50 Years >450 pg/mL 51 Years - 75 Years >900 pg/mL 76 Years - 99 Years >1800 pg/mL Rule Out: All patients <300 pg/mL [facility] Otheron 01-17-2019 Interpretation and review of laboratory results Abnormal [facility] Interpretation and review of laboratory results Normal [facility] PT/INRon 01-17-2019 INR Coag (PPP) [Relative time] 1.0 {INR} [facility] Interpretation and review of laboratory results Normal [facility] PT Coag (PPP) [Time] 12.5 s [facility] During the induction phase of oral anticoagulation, the INR may not reflect the anticoagulation status of the patient. Therapeutic ranges for INR's are: Most clinical situations: INR 2.0-3.0 Mechanical Prosthetic Valve: INR 2.5-3.5 Critical: INR >5.0 [facility] TROPONINon 01-17-2019 Troponin I.cardiac [Mass/Vol] ng/mL <=45 ng/L [facility] Troponin I.cardiac [Mass/Vol] No biomarker evidence of cardiac injury. [facility] Troponin I.cardiac [Mass/Vol] No biomarker evidence of cardiac injury. [facility] Troponin I.cardiac [Mass/Vol] ng/mL <=45 ng/L [facility] Troponin I.cardiac [Mass/Vol] ng/mL <=45 ng/L [facility] Troponin I.cardiac [Mass/Vol] Normal [facility] URINALYSISon 01-17-2019 Bacteria Auto Ql (U) None Seen None Se en /hpf [facility] Bilirubin Ql (U) Negative Negative [facility] th Clarity Refractometry automated (U) Clear Clear [facility] Color (U) Yellow Colorless, Yellow [facility] Glucose Auto test strip (U) [Mass/Vol] Negative Negative mg/dL [facility] Hemoglobin Auto test strip Ql (U) Negative Negative [facility] Interpretation and review of laboratory results Normal [facility] Ketones (U) [Mass/Vol] Negative Negat bryan mg/dL [facility] Leukocyte esterase Auto test strip Ql (U) Negative Negative [facility] Nitrite Auto test strip Ql (U) Negative Negative [facility] pH (U) 6.0 [pH] [facility] Protein (U) [Mass/Vol] Negative Negat bryan mg/dL [facility] Specific gravity (U) [Rel density] 1.019 [facility] Urobilinogen (U) [Mass/Vol] <2.0 <2.0 mg/dL [facility] WBC Auto (Urine sed) [#/Area] <1 [facility] Microscopic examinat ion is performed on all urinalysis samples and only positive findings are reported. The test for blood on the chemical analytic portion of urinalysis may also be positive due to hemoglobinuria and myoglobinuria and if red blood cells are present they are quantified by microscopic examination. [facility] XR Chest 1 Viewon 01-17-2019 No acute cardiopulmo nary process. [employer] Workstation ID: [id number] [facility] Interface, Rad In Fu ji Speechq - 01/17/2019 8:16 PM EST EXAMINATION: XR CHEST PA/AP HISTORY: ORDERING SYSTEM PROVIDED HISTORY: chest pain, TECHNOLOGIST PROVIDED HISTORY: Illness/Other Reason for exam: chest pain Cancer History: u Surgery, RadiationHistory: yes Encounter Type: Initial Additional signs and symptoms: unknown ORDERING SYSTEM PROVIDED DIAGNOSIS CODES: COMPARISON: 01/04/2019. FINDINGS: One-view chest x-ray. No pneumothorax, pleural effusion or focal airspace consolidation. Heart is normal in size. Bony thorax is unremarkable. IMPRESSION: No acute cardiopulmonary process. [employer] Workstation ID: [id number] [facility] EXAMINATION: XR CHES T PA/AP HISTORY: ORDERING SYSTEM PROVIDED HISTORY: chest pain, TECHNOLOGIST PROVIDED HISTORY: Illness/Other Reason for exam: chest pain Cancer History: u Surgery, RadiationHistory: yes Encounter Type: Initial Additional signs and symptoms: unknown ORDERING SYSTEM PROVIDED DIAGNOSIS CODES: COMPARISON: 01/04/2019. FINDINGS: One-view chest x-ray. No pneumothorax, pleural effusion or focal airspace consolidation. Heart is normal in size. Bony thorax is unremarkable. [facility] ECG 12-LEADon 01-04-2019 Brian Cordoba MD 01/04/2019 7:49 PM ECG 12- Lead Date/Time: 01/04/2019 6:25 PM Performed by: Brian Cordoba MD Authorized by: Brian Cordoba MD Rhythm: sinus rhythm BPM: 75 Comments: Normal sinus rhythm at rate of 75 bpm low voltage QRS; QTC 4 4 4 ms; [facility] POC B-type natriuretic pepti de (BNP)on 01-04-2019 Interpretation and review of laboratory results Normal [facility] Natriuretic peptide B (Bld) [Mass/Vol] 42.1 pg/mL <100 [facility] POC Basic Metabolic Panelon 01-04-2019 Calcium.ionized (Bld) [Mass/Vol] 4.8 mg/dL 4.5 - 5.3 mg/dL [facility] Chloride [Moles/Vol] 102 mmol/L 98 - 10 8 mmol/L [facility] CO2 [Moles/Vol] 27 mmol/L 21 - 32 mmol/L [facility] Creatinine [Mass/Vol] 0.95 mg/dL 0.5 - 1.3 mg/dL [facility] GFR/1.73 sq M.predicted MDRD (S/P/Bld) [Vol rate/Area] 95 mL/min/{1.73_m2} >=60 mL/min/1.7 3 m2 [facility] Glucose [Mass/Vol] 123 mg/dL High 65 - 99 mg/dL [facility] Interpretation and review of laboratory results Abnormal [facility] Potassium [Moles/Vol] 4.0 mmol/L 3.5 - 5.1 mmol/L [facility] Sodium [Moles/Vol] 141 mmol/L 135 - 145 mmol/L [facility] Urea nitrogen [Mass/Vol] 23 mg/dL 8 - 25 mg/dL [facility] POC CBC and Differentialon 1 03-06-2018 Erythrocyte distribution width (RBC) [Entitic vol] 14.8 % 11.6 - 14.8 % [facility] Hematocrit (Bld) [Volume fraction] 43.1 % 41 - 53 % [facility] Hemoglobin (Bld) [Mass/Vol] 14.3 g/dL 13.5 - 17.5 g/dL [facility] Interpretation and review of laboratory results Abnormal [facility] Lymphocytes (Bld) [#/Vol] 3.0 10*3/uL [facility] Lymphocytes/100 WBC (Bld) 25.9 % [facility] MCH (RBC) [Entitic mass] 28.4 pg 26 - 34 pg [facility] MCHC (RBC) [Mass/Vol] 33.2 g/dL 31 - 3 7 g/dL [facility] MCV (RBC) [Entitic vol] 85.5 fL 80 - 100 fL [facility] Mixed 10.6 % [facility] Mixed Abs 1.2 K/mcl [facility] Neutrophil Abs 7.3 High [facility] Neutrophils/100 WBC (Bld) 63.5 % [facility] Platelet mean volume (Bld) [Entitic vol] 10.6 fL 9 - 15.5 fL [facility] Platelets (Bld) [#/Vol] 289 10*3/uL [facility] RBC (Bld) [#/Vol] 5.04 10*6/uL [facility] ealth WBC (Bld) [#/Vol] 11.50 10*3/uL [facility] POC D-dimeron 01-04-2019 Fibrin D-dimer DDU (PPP) [Mass/Vol] <100 <350 ng/mL DDU [facility] Interpretation and review of laboratory results Normal [facility] A D-Dimer concentrat ion of <350 ng/mL DDU is considered a low probability for pulmonary embolism (PE) and deep venous thrombosis (DVT). Results of this test should always be interpreted in conjunction with the patient's medical history, clinical presentation, and other findings. Clinical diagnosis should not be based on the results of the D-dimer alone. The above D-dimer cutoff pertains to its use for the exclusion of DVT or PE. The range associated with other clinical conditions (e.g. sepsis) has not been validated for this method. 90% of normal patients are less than 400 ng/ml. [facility] POC Liver Panel Pluson 01-04 Albumin [Mass/Vol] 3.4 g/dL 3.2 - 5.2 g/dL [facility] ALP [Catalytic activity/Vol] 83 U/L 40 - 150 U/L [facility] ALT [Catalytic activity/Vol] 52 U/L High 0 - 40 U/L [facility] Amylase [Catalytic activity/Vol] 42 U/L 25 - 115 U/L [facility] AST [Catalytic activity/Vol] 34 U/L 0 - 45 U/L [facility] Bilirubin [Mass/Vol] 0.8 mg/dL 0 - 1.3 mg/dL [facility] Gamma glutamyl transferase [Catalytic activity/Vol] 28 U/L 11 - 51 U/L [facility] Interpretation and review of laboratory results Abnormal [facility] Protein [Mass/Vol] 6.5 g/dL 6 - 8 g/dL [facility] al[facility] POC Troponin Ion 01-04-2019 Interpretation and review of laboratory results Normal [facility] Troponin I.cardiac [Mass/Vol] ng/mL <0.05 ng/mL [facility] XR CHEST AP/PA AND LATon Interface, Rad In Fu ji Speechq - 01/04/2019 5:52 PM EST EXAMINATION: XR CHEST AP/PA AND LAT 01/04/2019 5:46 pm HISTORY: ORDERING SYSTEM PROVIDED HISTORY: SOB, TECHNOLOGIST PROVIDED HISTORY: Illness/Other Reason for exam: SOB Cancer History: u Surgery, RadiationHistory: yes Encounter Type: Initial Additional signs and symptoms: n ORDERING SYSTEM PROVIDED DIAGNOSIS CODES: COMPARISON: Portable chest from 09/27/2018. FINDINGS: Trachea is midline. Mediastinum is not widened. Heart size is unremarkable. No effusion or nodule or pneumothorax or infiltrate is noted. The diaphragm and bony elements are intact. IMPRESSION: Nonacute two-view chest. Workstation ID: [id number] [facility] EXAMINATION: XR CHES T AP/PA AND LAT 01/04/2019 5:46 pm HISTORY: ORDERING SYSTEM PROVIDED HISTORY: SOB, TECHNOLOGIST PROVIDED HISTORY: Illness/Other Reason for exam: SOB Cancer History: u Surgery, RadiationHistory: yes Encounter Type: Initial Additional signs and symptoms: n ORDERING SYSTEM PROVIDED DIAGNOSIS CODES: COMPARISON: Portable chest from 09/27/2018. FINDINGS: Trachea is midline. Mediastinum is not widened. Heart size is unremarkable. No effusion or nodule or pneumothorax or infiltrate is noted. The diaphragm and bony elements are intact. [facility] Nonacute two-view ch est. Workstation ID: [id number] [facility] NT PRO BNPon 12-26-2018 Interpretation and review of laboratory results Normal [facility] Natriuretic peptide.B prohormone N-Terminal [Mass/Vol] 58 pg/mL 0 - 300 pg/mL [facility] Comment on above: Please note referenc e range change as of 01/30/18. Pride Study Cut-offs Rule In: < /= 50 Years >450 pg/mL 51 Years - 75 Years >900 pg/mL 76 Years - 99 Years >1800 pg/mL Rule Out: All patients <300 pg/mL [facility] MR Cardiac ([employer] [place]) w/Velocity Flowon 12-25-2018 [facility] CMR Repor t Name: FERNANDO HELTON : 1970 Scan Date: 2018-12-25 13:56:00 Electronically signed by Gilmer Eduardo 17:14:21 SUMMARY ====== INDICATION: Cardiac MRI with gadolinium contrast was performed on a 1.5 T scanner to rule out LV apical thrombus in a 48 year old male with ischemic cardiomyopathy. CONCLUSIONS: 1. Normal LV size, with hypokinesis of the apex and apical to mid anteroseptal segments, and overall mildly reduced to low normal systolic function. Calculated LVEF = 52%. 2. There is no obvious LV thrombus. 3. Delayed Gadolinium enhancement demonstrates transmural scar in the apical to mid anterior/anteroseptal, apical inferior and apical lateral segments consistent with prior infarct. 4. Normal RV size and systolic function. RVEF = 57%. 5. No significant valve disease. 6. Borderline dilated aortic root at the sinuses of Valsalva (3.9 cm). 7. Extracardiac: Non-cardiac findings visualized on this study will be independently reviewed by a radiologist. Please see the separate Radiology report. FINDINGS: LEFT VENTRICLE: There is normal left ventricular cavity size. There is mild concentric hypertrophy. Global LV systolic function is mildly reduced to low normal. There is hypokinesis of the apex and apical to mid anteroseptal segments. The LV ejection fraction is 52%. T2 and T2* imaging does not show any evidence of myocardial inflammation, edema or iron overload. Post gadolinium delayed imaging demonstrates transmural scar (50-75% of wall thickness) in the apical to mid anterior/anteroseptal, apical inferior and apical lateral segments consistent with prior infarct. RIGHT VENTRICLE: There is normal right ventricular cavity size, wall thickness, and systolic function. Calculated RVEF is 57%. LEFT ATRIUM: Normal in size. RIGHT ATRIUM: Normal in size. AORTIC VALVE: Aortic valve is tri-leaflet. There is no significant stenosis or regurgitation. MITRAL VALVE: Normal leaflets. There is no significant stenosis or regurgitation. TRICUSPID VALVE: Normal leaflets. There is no significant stenosis or regurgitation. PULMONIC VALVE: Normal leaflets. There is no significant stenosis or regurgitation. GREAT VESSELS: The aorta measures 3.3 cm x 3.3 cm at the PA bifurcation level, 2.1 cm x 2.1 cm in the descending aorta, 3.9 cm at the sinuses of Valsalva and 2.9 cm at the sinotubular junction. The pulmonary artery measures 2.4 cm. PERICARDIUM: Normal pericardium. No significant pericardial effusion. CORE EXAM ====== MEASUREMENTS VOLUMETRIC ANALYSIS . ---------. LV Reference RV Reference +------+ +----- -+ +------+--- ---------+ EDV ml 134 (117-200) 120 (116-216) ml/m^2 61.2 (64-99) 54.8 (62-108) ESV ml 64 (31-76) 52 (29-89) ml/m^2 29.2 (17-38) 23.7 (16-45) CO L/min 5.53 5.37 L/min/m^2 2.5 2.5 MASS g 165 (108-185) g/m^2 75.3 (58-91) SV ml 70 (77-133) 68 (73-141) ml/m^2 32.0 (42-66) 31.1 (39-71) EF % 52 (58-75) 57 (52-77) '------+ +----- -+ +------+--- ---------' CARDIAC OUTPUT HR: 79 bpm LV DIMENSIONS WALL THICKNESS - ANTEROSEPTAL: 1.4 cm WALL THICKNESS - INFEROLATERAL: 1.1 cm WALL THICKNESS - MAXIMUM: 1.4 cm LV FREDY: 4.8 cm LV ESD: 3.0 cm LA DIMENSIONS (LV SYSTOLE) DIAMETER: 3.3 cm AREA - 2 CHAMBER: 21 cm^2 LENGTH - 2 CHAMBER: 5.0 cm AREA - 4 CHAMBER: 22 cm^2 LENGTH - 4 CHAMBER: 6.0 cm VOLUME: 79 ml IRON QUANTIFICATION MYOCARDIAL T2*: 29 msec LIVER T2*: 23 msec FLOW ANALYSIS QP: 5.52 L/min QS: 4.92 L/min QP/QS: 1.10 VISUAL EJECTION FRACTION: 50 % 17 SEGMENT . . Segments Wall Motion Hyperenhancement Stress Perfusion Interpretation + +--- + ------+ + + Base Anterior Normal/Hyper None Base Anteroseptal Normal/Hyper None Base Inferoseptal Normal/Hyper None Base Inferior Normal/Hyper None Base Inferolateral Normal/Hyper None Base Anterolateral Normal/Hyper None Mid Anterior Normal/Hyper None Mid Anteroseptal Severe Hypo 51-75% Mid Inferoseptal Normal/Hyper None Mid Inferior Normal/Hyper None Mid Inferolateral Normal/Hyper None Mid Anterolateral Normal/Hyper None Apical Anterior Severe Hypo 51-75% Apical Septal Severe Hypo 51-75% Apical Inferior Mild/Mod Hypo 51-75% Apical Lateral Mild/Mod Hypo 51-75% [place] Severe Hypo 51-75% + +--- + ------+ + + RV Segments Wall Motion Hyperenhancement Stress Perfusion Interpretation + +--- + ------+ + + RV Basal Anterior Normal/Hyper None RV Basal Inferior Normal/Hyper None RV Mid Normal/Hyper None RV Apical Normal/Hyper None ' +--- + ------+ + ' FINDINGS INFARCT/SCAR SIZE: 22 % SCAN INFO ====== GENERAL SEDATION SEDATION USED?: No CONTRAST AGENT TYPE: [employer] VOLUME ADMINISTERED: 40 ml DOSAGE FOR 0.5M: 0.18 mmol/kg SERUM CREATININE: 1.20 sCr GFR: 68.98 ml/min/1.73m^2 CREATININE DATE: 2018-09-27 00:00:00 VITALS HEIGHT: 66.00 in HEIGHT: 167.64 cm WEIGHT: 248.00 lbs WEIGHT: 112.49 kgs BSA: 2.19 m^2 SETUP TYPE: Clinical INPATIENT: No LOCATION: [facility] INCOMPLETE SCAN: No REASON(S) FOR SCAN: Cardiomyopathy, Thrombus (evaluate for) REFERRING PHYSICIAN: PATRICIA LOUIS ATTENDING PHYSICIAN: GILMER EDUARDO TECHNOLOGIST: Vidhi Escobar Patient Account [id number] CPT Codes 56187 ICD10 Codes I50.22 Report generated by [employer], a product of [employer] [place] Interface, Rad In [employer] - 12/25/2018 5:14 PM EST [facility] CMR Report Name: FERNANDO HELTON : 1970 Scan Date: 2018-12-25 13:56:00 Electronically signed by Gilmer Eduardo 17:14:21 SUMMARY ====== INDICATION: Cardiac MRI with gadolinium contrast was performed on a 1.5 T scanner to rule out LV apical thrombus in a 48 year old male with ischemic cardiomyopathy. CONCLUSIONS: 1. Normal LV size, with hypokinesis of the apex and apical to mid anteroseptal segments, and overall mildly reduced to low normal systolic function. Calculated LVEF = 52%. 2. There is no obvious LV thrombus. 3. Delayed Gadolinium enhancement demonstrates transmural scar in the apical to mid anterior/anteroseptal, apical inferior and apical lateral segments consistent with prior infarct. 4. Normal RV size and systolic function. RVEF = 57%. 5. No significant valve disease. 6. Borderline dilated aortic root at the sinuses of Valsalva (3.9 cm). 7. Extracardiac: Non-cardiac findings visualized on this study will be independently reviewed by a radiologist. Please see the separate Radiology report. FINDINGS: LEFT VENTRICLE: There is normal left ventricular cavity size. There is mild concentric hypertrophy. Global LV systolic function is mildly reduced to low normal. There is hypokinesis of the apex and apical to mid anteroseptal segments. The LV ejection fraction is 52%. T2 and T2* imaging does not show any evidence of myocardial inflammation, edema or iron overload. Post gadolinium delayed imaging demonstrates transmural scar (50-75% of wall thickness) in the apical to mid anterior/anteroseptal, apical inferior and apical lateral segments consistent with prior infarct. RIGHT VENTRICLE: There is normal right ventricular cavity size, wall thickness, and systolic function. Calculated RVEF is 57%. LEFT ATRIUM: Normal in size. RIGHT ATRIUM: Normal in size. AORTIC VALVE: Aortic valve is tri-leaflet. There is no significant stenosis or regurgitation. MITRAL VALVE: Normal leaflets. There is no significant stenosis or regurgitation. TRICUSPID VALVE: Normal leaflets. There is no significant stenosis or regurgitation. PULMONIC VALVE: Normal leaflets. There is no significant stenosis or regurgitation. GREAT VESSELS: The aorta measures 3.3 cm x 3.3 cm at the PA bifurcation level, 2.1 cm x 2.1 cm in the descending aorta, 3.9 cm at the sinuses of Valsalva and 2.9 cm at the sinotubular junction. The pulmonary artery measures 2.4 cm. PERICARDIUM: Normal pericardium. No significant pericardial effusion. CORE EXAM ====== MEASUREMENTS VOLUMETRIC ANALYSIS . ---------. LV Reference RV Reference +------+ +----- -+ +------+--- ---------+ EDV ml 134 (117-200) 120 (116-216) ml/m^2 61.2 (64-99) 54.8 (62-108) ESV ml 64 (31-76) 52 (29-89) ml/m^2 29.2 (17-38) 23.7 (16-45) CO L/min 5.53 5.37 L/min/m^2 2.5 2.5 MASS g 165 (108-185) g/m^2 75.3 (58-91) SV ml 70 (77-133) 68 (73-141) ml/m^2 32.0 (42-66) 31.1 (39-71) EF % 52 (58-75) 57 (52-77) '------+ +----- -+ +------+--- ---------' CARDIAC OUTPUT HR: 79 bpm LV DIMENSIONS WALL THICKNESS - ANTEROSEPTAL: 1.4 cm WALL THICKNESS - INFEROLATERAL: 1.1 cm WALL THICKNESS - MAXIMUM: 1.4 cm LV FREDY: 4.8 cm LV ESD: 3.0 cm LA DIMENSIONS (LV SYSTOLE) DIAMETER: 3.3 cm AREA - 2 CHAMBER: 21 cm^2 LENGTH - 2 CHAMBER: 5.0 cm AREA - 4 CHAMBER: 22 cm^2 LENGTH - 4 CHAMBER: 6.0 cm VOLUME: 79 ml IRON QUANTIFICATION MYOCARDIAL T2*: 29 msec LIVER T2*: 23 msec FLOW ANALYSIS QP: 5.52 L/min QS: 4.92 L/min QP/QS: 1.10 VISUAL EJECTION FRACTION: 50 % 17 SEGMENT . . Segments Wall Motion Hyperenhancement Stress Perfusion Interpretation + +--- + ------+ + + Base Anterior Normal/Hyper None Base Anteroseptal Normal/Hyper None Base Inferoseptal Normal/Hyper None Base Inferior Normal/Hyper None Base Inferolateral Normal/Hyper None Base Anterolateral Normal/Hyper None Mid Anterior Normal/Hyper None Mid Anteroseptal Severe Hypo 51-75% Mid Inferoseptal Normal/Hyper None Mid Inferior Normal/Hyper None Mid Inferolateral Normal/Hyper None Mid Anterolateral Normal/Hyper None Apical Anterior Severe Hypo 51-75% Apical Septal Severe Hypo 51-75% Apical Inferior Mild/Mod Hypo 51-75% Apical Lateral Mild/Mod Hypo 51-75% [place] Severe Hypo 51-75% + +--- + ------+ + + RV Segments Wall Motion Hyperenhancement Stress Perfusion Interpretation + +--- + ------+ + + RV Basal Anterior Normal/Hyper None RV Basal Inferior Normal/Hyper None RV Mid Normal/Hyper None RV Apical Normal/Hyper None ' +--- + ------+ + ' FINDINGS INFARCT/SCAR SIZE: 22 % SCAN INFO ====== GENERAL SEDATION SEDATION USED?: No CONTRAST AGENT TYPE: [employer] VOLUME ADMINISTERED: 40 ml DOSAGE FOR 0.5M: 0.18 mmol/kg SERUM CREATININE: 1.20 sCr GFR: 68.98 ml/min/1.73m^2 CREATININE DATE: 2018-09-27 00:00:00 VITALS HEIGHT: 66.00 in HEIGHT: 167.64 cm WEIGHT: 248.00 lbs WEIGHT: 112.49 kgs BSA: 2.19 m^2 SETUP TYPE: Clinical INPATIENT: No LOCATION: [facility] INCOMPLETE SCAN: No REASON(S) FOR SCAN: Cardiomyopathy, Thrombus (evaluate for) REFERRING PHYSICIAN: PATRICIA LOUIS ATTENDING PHYSICIAN: GILMER EDUARDO TECHNOLOGIST: Vidhi Escobar Patient Account [id number] CPT Codes 11089 ICD10 Codes I50.22 Report generated by [employer], a product of [employer] [facility] ECHOCARDIOGRAM 2D COMPLETEon 12-10-2018 Transthoracic Echocardiogram Patient: KYLE Hernandez [facility] Rec#: [id number] (Age): 1970(48y) Height: 167.64(cm)/65(i Study Date: 12/10/2018 Weight: 112.49(kg)/247( Room#: BSA: [id number] Type: Loc: Sex: M Reading: Magda Durán MD Referring: Moises Patel M.D Ordering ProvidTruax, Kathryn CNS Yard Coordinator: Mariann Syed RN RDCS History: COPD. Coronary artery disease. Hypertension. Myocardial infarction. S/P Percutaneous Coronary Intervention. Sleep apnea. Summary: Patient identity verified (pause and confirm). Current HP present on patient chart. Procedure explained and patient verified understanding. Consent obtained for procedure. Definity explained to patient. Patient verbalizes understanding and agrees to proceed. Definity 1.3ml/8.7ml normal sterile saline 4 ml total given IV over 30-60 seconds. Conclusions: Normal left ventricular size with mild segmental left ventricular systolic dysfunction, estimated LVEF 40-45%. A small LV apical thrombus cannot be entirely excluded despite the use of Definity contrast. Grade II diastolic dysfunction. Normal right ventricular size and systolic function. Mild left atrial enlargement. No hemodynamically significant valvular disease. Mildly dilated aortic root measuring 3.9 cm. Findings Reason For Study: Congestive heart failure. Coronary artery disease. Hypertension. Left Ventricle: The left ventricular chamber size is normal. There are multiple regional wall motion abnormalities. There is mildly decreased left ventricular systolic function. The estimated ejection fraction is 40-45%. The diastolic filling pattern is pseudonormal, consistent with at least mildly elevated LA pressure (Moderate diastolic dysfunction). The apical septal, apical anterior, apical lateral, and apical inferior wall segments are hypokinetic. Left Atrium: The left atrium is mildly dilated. Right Ventricle: The right ventricular cavity size is normal. The right ventricular global systolic function is normal. Right Atrium: The right atrial cavity size is normal. Aortic Valve: The aortic valve is trileaflet. There is no hemodynamically significant stenosis. There is no evidence of aortic regurgitation. Mitral Valve: The mitral valve leaflets appear normal. There is no evidence of mitral stenosis. There is a trace of mitral regurgitation. Tricuspid Valve: The tricuspid valve leaflets are normal. There is no tricuspid stenosis. There is a trace tricuspid regurgitation. Unable to estimate the right ventricular systolic pressure. Pulmonic Valve: The pulmonic valve appears normal. There is no pulmonic stenosis. There is a trace pulmonic regurgitation. Pericardium: There is no pericardial effusion. A pericardial fat pad is visualized. Aorta: There is no dilatation of the ascending aorta. There is mild dilatation of the aortic root. Venous: The inferior vena cava appears normal in size. HR BP 138/87 Measurements Chambers 2D Name Value Normal Range RVIDd (AP) 2D 3.11 cm none RVIDd (2D) index 1.42 cm/m2 none IVSd (2D) 1.18 cm none LVPWd (2D) 0.92 cm none IVS:LVPW ratio (2D) 1.28 ratio none LVIDd (2D) 4.76 cm none LVIDs (2D) 3.27 cm none LVIDd (2D) index 2.17 cm/m2 none LVIDs (2D) index 1.49 cm/m2 none LV FS (2D) 31.25 % none Ao root diameter (2D) 3.87 cm none Aortic root diameter (2D) inde1.77 cm/m2 none Volumes/Mass Name Value Normal Range LA ESV SP 4CH (A/L) 77.74 ml none LA ESV SP 2CH (A/L) 75.52 ml none LA ESV BP (A/L) 77.42 ml none LA ESV BP (A/L) index 35.33 ml/m2 none LA ESV SP 4CH (MOD) 74.38 ml none LA ESV SP 2CH (MOD) 73.11 ml none LV EDV SP 4CH (MOD) 160.76 ml none LV ESV SP 4CH (MOD) 84.89 ml none EF SP 4CH (MOD) 47.2 % none LV EDV SP 2CH (MOD) 161.78 ml none LV ESV SP 2CH (MOD) 88.47 ml none EF SP 2CH (MOD) 45.31 % none LV EDV BP 163.18 ml none LV ESV BP 87.01 ml none BP EF (MOD) 46.68 % none LV EDV BP index 74.46 ml/m2 none LV ESV BP index 39.7 ml/m2 none LV mass (2D) 180.21 g none LV mass (2D) index 82.23 g/m2 none RWT 0.39 ratio none Diastolic/Systolic Function Name Value Normal Range MV E-wave Vmax 0.87 m/sec none MV deceleration time 114.75 msec none MV A-wave Vmax 0.79 m/sec none MV E:A ratio 1.1 ratio (1.1 - 1.5) LV septal e' Vmax 0.1 m/sec none LV lateral e' Vmax 0.1 m/sec none LV E:e' septal ratio 8.47 ratio none LV E:e' lateral ratio 8.65 ratio none TAPSE 2.9 cm none Aortic Valve Name Value Normal Range AV Vmax 1.21 m/sec (1 - 1.7) AV VTI 23.27 cm none AV peak gradient 5.9 mmHg (Less Than 36) AV mean gradient 3.28 mmHg (Less Than 20) LVOT Vmax 1.05 m/sec (0.7 - 1.1) LVOT VTI 21.86 cm none LVOT peak gradient 4.38 mmHg none LVOT mean gradient 2.31 mmHg none DOI (VTI) 0.94 ratio none DOI (Vmax) 0.86 ratio none Ascending Ao 3.36 cm none Mitral Valve Name Value Normal Range MV Vmax 0.8 m/sec (0.6 - 1.3) MV VTI 22.39 cm none MV peak gradient 2.59 mmHg none MV mean gradient 1.34 mmHg none MV PHT 67.13 msec none MVA (PHT) 3.28 cm2 none Tricuspid Valve Name Value Normal Range RAP 3 mmHg none IVC diameter 1.77 cm none Pulmonic Valve/Qp:Qs Name Value Normal Range PV Vmax 0.96 m/sec (0.6 - 0.9) PV VTI 22.88 cm none PV peak gradient 3.65 mmHg none PV mean gradient 2.07 mmHg none Electronically Signed at 12/10/2018 17:14:17 by: Magda Durán MD [facility] Interface, Rad In Heartlab Xper Echopacs - 12/10/2018 5:28 PM EDT Transthoracic Echocardiogram Patient: KYLE Hernandez [facility] Rec#: [id number] (Age): 1970(48y) Height: 167.64(cm)/65(i Study Date: 12/10/2018 Weight: 112.49(kg)/247( Room#: BSA: [id number] Type: Loc: Sex: M Reading: Magda Durán MD Referring: Moises Patel M.D Ordering Patricia Keller [facility] Yard Coordinator: Mariann Syed RN RDCS History: COPD. Coronary artery disease. Hypertension. Myocardial infarction. S/P Percutaneous Coronary Intervention. Sleep apnea. Summary: Patient identity verified (pause and confirm). Current HP present on patient chart. Procedure explained and patient verified understanding. Consent obtained for procedure. Definity explained to patient. Patient verbalizes understanding and agrees to proceed. Definity 1.3ml/8.7ml normal sterile saline 4 ml total given IV over 30-60 seconds. Conclusions: Normal left ventricular size with mild segmental left ventricular systolic dysfunction, estimated LVEF 40-45%. A small LV apical thrombus cannot be entirely excluded despite the use of Definity contrast. Grade II diastolic dysfunction. Normal right ventricular size and systolic function. Mild left atrial enlargement. No hemodynamically significant valvular disease. Mildly dilated aortic root measuring 3.9 cm. Findings Reason For Study: Congestive heart failure. Coronary artery disease. Hypertension. Left Ventricle: The left ventricular chamber size is normal. There are multiple regional wall motion abnormalities. There is mildly decreased left ventricular systolic function. The estimated ejection fraction is 40-45%. The diastolic filling pattern is pseudonormal, consistent with at least mildly elevated LA pressure (Moderate diastolic dysfunction). The apical septal, apical anterior, apical lateral, and apical inferior wall segments are hypokinetic. Left Atrium: The left atrium is mildly dilated. Right Ventricle: The right ventricular cavity size is normal. The right ventricular global systolic function is normal. Right Atrium: The right atrial cavity size is normal. Aortic Valve: The aortic valve is trileaflet. There is no hemodynamically significant stenosis. There is no evidence of aortic regurgitation. Mitral Valve: The mitral valve leaflets appear normal. There is no evidence of mitral stenosis. There is a trace of mitral regurgitation. Tricuspid Valve: The tricuspid valve leaflets are normal. There is no tricuspid stenosis. There is a trace tricuspid regurgitation. Unable to estimate the right ventricular systolic pressure. Pulmonic Valve: The pulmonic valve appears normal. There is no pulmonic stenosis. There is a trace pulmonic regurgitation. Pericardium: There is no pericardial effusion. A pericardial fat pad is visualized. Aorta: There is no dilatation of the ascending aorta. There is mild dilatation of the aortic root. Venous: The inferior vena cava appears normal in size. HR BP 138/87 Measurements Chambers 2D Name Value Normal Range RVIDd (AP) 2D 3.11 cm none RVIDd (2D) index 1.42 cm/m2 none IVSd (2D) 1.18 cm none LVPWd (2D) 0.92 cm none IVS:LVPW ratio (2D) 1.28 ratio none LVIDd (2D) 4.76 cm none LVIDs (2D) 3.27 cm none LVIDd (2D) index 2.17 cm/m2 none LVIDs (2D) index 1.49 cm/m2 none LV FS (2D) 31.25 % none Ao root diameter (2D) 3.87 cm none Aortic root diameter (2D) inde1.77 cm/m2 none Volumes/Mass Name Value Normal Range LA ESV SP 4CH (A/L) 77.74 ml none LA ESV SP 2CH (A/L) 75.52 ml none LA ESV BP (A/L) 77.42 ml none LA ESV BP (A/L) index 35.33 ml/m2 none LA ESV SP 4CH (MOD) 74.38 ml none LA ESV SP 2CH (MOD) 73.11 ml none LV EDV SP 4CH (MOD) 160.76 ml none LV ESV SP 4CH (MOD) 84.89 ml none EF SP 4CH (MOD) 47.2 % none LV EDV SP 2CH (MOD) 161.78 ml none LV ESV SP 2CH (MOD) 88.47 ml none EF SP 2CH (MOD) 45.31 % none LV EDV BP 163.18 ml none LV ESV BP 87.01 ml none BP EF (MOD) 46.68 % none LV EDV BP index 74.46 ml/m2 none LV ESV BP index 39.7 ml/m2 none LV mass (2D) 180.21 g none LV mass (2D) index 82.23 g/m2 none RWT 0.39 ratio none Diastolic/Systolic Function Name Value Normal Range MV E-wave Vmax 0.87 m/sec none MV deceleration time 114.75 msec none MV A-wave Vmax 0.79 m/sec none MV E:A ratio 1.1 ratio (1.1 - 1.5) LV septal e' Vmax 0.1 m/sec none LV lateral e' Vmax 0.1 m/sec none LV E:e' septal ratio 8.47 ratio none LV E:e' lateral ratio 8.65 ratio none TAPSE 2.9 cm none Aortic Valve Name Value Normal Range AV Vmax 1.21 m/sec (1 - 1.7) AV VTI 23.27 cm none AV peak gradient 5.9 mmHg (Less Than 36) AV mean gradient 3.28 mmHg (Less Than 20) LVOT Vmax 1.05 m/sec (0.7 - 1.1) LVOT VTI 21.86 cm none LVOT peak gradient 4.38 mmHg none LVOT mean gradient 2.31 mmHg none DOI (VTI) 0.94 ratio none DOI (Vmax) 0.86 ratio none Ascending Ao 3.36 cm none Mitral Valve Name Value Normal Range MV Vmax 0.8 m/sec (0.6 - 1.3) MV VTI 22.39 cm none MV peak gradient 2.59 mmHg none MV mean gradient 1.34 mmHg none MV PHT 67.13 msec none MVA (PHT) 3.28 cm2 none Tricuspid Valve Name Value Normal Range RAP 3 mmHg none IVC diameter 1.77 cm none Pulmonic Valve/Qp:Qs Name Value Normal Range PV Vmax 0.96 m/sec (0.6 - 0.9) PV VTI 22.88 cm none PV peak gradient 3.65 mmHg none PV mean gradient 2.07 mmHg none Electronically Signed at 12/10/2018 17:14:17 by: Magda Durán MD [facility] EKGon 09-28-2018 Ordered by an unspec ified provider. [facility] CBC WITH AUTO DIFFERENTIALon 09-27-2018 Basophils (Bld) [#/Vol] 0.09 10*3/uL [facility] Basophils/100 WBC (Bld) 0.7 % [facility] Eosinophils (Bld) [#/Vol] 0.82 10*3/uL High [facility] Eosinophils/100 WBC (Bld) 6.2 % [facility] Erythrocyte distribution width (RBC) [Entitic vol] 14.7 % 11.6 - 14.8 % [facility] Hematocrit (Bld) [Volume fraction] 44.7 % 41 - 53 % [facility] Hemoglobin (Bld) [Mass/Vol] 14.7 g/dL 13.5 - 17.5 g/dL [facility] Immature granulocytes (Bld) [#/Vol] 0.08 10*3/uL [facility] Immature granulocytes/100 WBC (Bld) 0.60 % [facility] Comment on above: The IG parameter is the percentage of metamyelocytes, myelocytes, and promyelocytes. Interpretation and review of laboratory results Abnormal [facility] Lymphocytes (Bld) [#/Vol] 4.45 10*3/uL High [facility] Lymphocytes/100 WBC (Bld) 33.4 % [facility] MCH (RBC) [Entitic mass] 27.6 pg 26 - 34 pg [facility] MCHC (RBC) [Mass/Vol] 32.9 g/dL 31 - 3 7 g/dL [facility] MCV (RBC) [Entitic vol] 83.9 fL 80 - 100 fL [facility] Monocytes (Bld) [#/Vol] 1.10 10*3/uL [facility] Monocytes/100 WBC (Bld) 8.3 % [facility] Neutrophils (Bld) [#/Vol] 6.79 10*3/uL [facility] Neutrophils/100 WBC (Bld) 50.8 % [facility] Nucleated RBC (Bld) [#/Vol] 0.00 10*3/uL [facility] Nucleated RBC/100 WBC (Bld) [Ratio] 0.0 % [facility] Platelet mean volume (Bld) [Entitic vol] 10.6 fL 9 - 15.5 fL [facility] Platelets (Bld) [#/Vol] 288 10*3/uL [facility] RBC (Bld) [#/Vol] 5.33 10*6/uL [facility] ealth WBC (Bld) [#/Vol] 13.33 10*3/uL [facility] ECG 12-LEADon 09-27-2018 Atrial Rate 90 BPM [facility] P [place] 62 degrees [facility] P-R Interval 164 ms [facility] Q-T Interval 348 ms [facility] QRS Duration 94 ms [facility] QTC Calculation (Bezet) 425 ms [facility] R [place] 0 degrees [facility] T [place] 72 degrees [facility] Ventricular Rate 90 BPM [facility] th Normal sinus rhythm Low voltage QRS Cannot rule out Anteroseptal infarct , age undetermined Abnormal ECG ECG Cart Interpretation see physician note for interpretation. Confirmed by Brandy Kc ([id number]) on 09/27/2018 8:20:21 PM [facility] Nathanael Valencia MD 09/27/2018 10:00 PM ECG 12 Lead Date/Time: 09/27/2018 7:16 PM Performed by: Nathanael Valencia MD Authorized by: Nathanael Valencia MD Comparison: not compared with previous ECG Rhythm: sinus rhythm BPM: 90 Conduction: conduction normal ST Segments: ST segments normal T Waves: T waves normal Clinical impression: non-specific ECG Comments: No acute ischemic changes [facility] POC B-type natriuretic pepti de (BNP)on 09-27-2018 Interpretation and review of laboratory results Normal [facility] Natriuretic peptide B (Bld) [Mass/Vol] 19.0 pg/mL <100 [facility] POC Basic Metabolic Panelon 09-27-2018 Calcium [Mass/Vol] 9.5 mg/dL 8.4 - 10. 2 mg/dL [facility] Chloride [Moles/Vol] 106 mmol/L 98 - 10 8 mmol/L [facility] CO2 [Moles/Vol] 25 mmol/L 21 - 32 mmol/L [facility] Creatinine [Mass/Vol] 1.0 mg/dL 0.5 - 1.3 mg/dL [facility] Glucose [Mass/Vol] 140 mg/dL High 65 - 99 mg/dL [facility] Interpretation and review of laboratory results Abnormal [facility] Potassium [Moles/Vol] 3.4 mmol/L Low 3.5 - 5.1 mmol/L [facility] Sodium [Moles/Vol] 139 mmol/L 135 - 145 mmol/L [facility] Urea nitrogen [Mass/Vol] 20 mg/dL 8 - 25 mg/dL [facility] POC CBC and Differentialon 0 09-27-2018 Comment See Comment Critically abnormal (none) [facility] Comment on above: CRITICAL. CBCD reord ered and sent to . Possible presence of immature granulocytes present. Automated differential not reported. Erythrocyte distribution width (RBC) [Entitic vol] 15.4 % High 11.6 - 14.8 % [facility] Hematocrit (Bld) [Volume fraction] 45.1 % 41 - 53 % [facility] Hemoglobin (Bld) [Mass/Vol] 15.0 g/dL 13.5 - 17.5 g/dL [facility] Interpretation and review of laboratory results Abnormal [facility] MCH (RBC) [Entitic mass] 28.5 pg 26 - 34 pg [facility] MCHC (RBC) [Mass/Vol] 33.3 g/dL 31 - 3 7 g/dL [facility] MCV (RBC) [Entitic vol] 85.6 fL 80 - 100 fL [facility] Platelet mean volume (Bld) [Entitic vol] 10.4 fL 9 - 15.5 fL [facility] Platelets (Bld) [#/Vol] 285 10*3/uL [facility] RBC (Bld) [#/Vol] 5.27 10*6/uL [facility] ealth WBC (Bld) [#/Vol] 13.50 10*3/uL High [facility] POC D-dimeron 09-27-2018 Fibrin D-dimer DDU (PPP) [Mass/Vol] <100 <350 ng/mL DDU [facility] Interpretation and review of laboratory results Normal [facility] A D-Dimer concentrat ion of <350 ng/mL DDU is considered a low probability for pulmonary embolism (PE) and deep venous thrombosis (DVT). Results of this test should always be interpreted in conjunction with the patient's medical history, clinical presentation, and other findings. Clinical diagnosis should not be based on the results of the D-dimer alone. The above D-dimer cutoff pertains to its use for the exclusion of DVT or PE. The range associated with other clinical conditions (e.g. sepsis) has not been validated for this method. 90% of normal patients are less than 400 ng/ml. [facility] POC Troponin Ion 09-27-2018 Interpretation and review of laboratory results Normal [facility] Troponin I.cardiac [Mass/Vol] ng/mL <0.05 ng/mL [facility] Interpretation and review of laboratory results Normal [facility] Troponin I.cardiac [Mass/Vol] ng/mL <0.05 ng/mL [facility] XR Chest 1 Viewon 09-27-2018 Negative acute lorin ble chest. BAB/ads Workstation ID: [id number] [facility] EXAMINATION: XR CHES T PA/AP HISTORY: chest pain COMPARISON: Correlation is made with previous single-view chest 01/08/2018. FINDINGS: Portable AP view of the chest is provided. The cardiomediastinal silhouette is stable. A coronary stent is noted. Lungs are free of focal infiltrate. There is no pleural effusion or pneumothorax present. Bones appear unremarkable. [facility] Interface, Rad In Fu ji Speechq - 09/27/2018 9:43 PM EDT EXAMINATION: XR CHEST PA/AP HISTORY: chest pain COMPARISON: Correlation is made with previous single-view chest 01/08/2018. FINDINGS: Portable AP view of the chest is provided. The cardiomediastinal silhouette is stable. A coronary stent is noted. Lungs are free of focal infiltrate. There is no pleural effusion or pneumothorax present. Bones appear unremarkable. IMPRESSION: Negative acute portable chest. BAB/ads Workstation ID: [id number] [facility] CBC with Diffon 01-09-2018 Basophils #/vol (Bld) 0.1 K/mcL Normal 0-0.[address] [facility] Comment on above: Performed By: #### F SBNP #### Unless otherwise noted, all testing performed by [place] [phone] CLIA: [id number] 3 Year Olds Preschool Teacher: Twin Marley M.D. Basophils/100 WBC (Bld) 1.2 % Normal [facility] Comment on above: Performed By: #### F SBNP #### Unless otherwise noted, all testing performed by [place] [phone] CLIA: [id number] 3 Year Olds Preschool Teacher: Twin Marley M.D. Eosinophils #/vol (Bld) 0.5 K/mcL Normal 0-0.5 [facility] Comment on above: Performed By: #### F SBNP #### Unless otherwise noted, all testing performed by [place] [phone] CLIA: [id number] 3 Year Olds Preschool Teacher: Twin Marley M.D. Eosinophils/100 WBC (Bld) 4.4 % Normal [facility] Comment on above: Performed By: #### F SBNP #### Unless otherwise noted, all testing performed by [place] [address] CLIA: [id number] 3 Year Olds Preschool Teacher: Twin Marley M.D. Erythrocyte distribution width Ratio (RBC) 14.8 % High 10-14.3 [facility] Comment on above: Performed By: #### F SBNP #### Unless otherwise noted, all testing performed by [place] [address] CLIA: [id number] 3 Year Olds Preschool Teacher: Twin Marley M.D. Hematocrit Volume Fraction (Bld) 44.7 % Normal 37.9-49.2 [facility] Comment on above: Performed By: #### F SBNP #### Unless otherwise noted, all testing performed by [place] [address] CLIA: [id number] 3 Year Olds Preschool Teacher: Twin Marley M.D. Hemoglobin mass conc (Bld) 14.7 g/dL Normal 12.9-16.9 [facility] Comment on above: Performed By: #### F SBNP #### Unless otherwise noted, all testing performed by [place] [address] CLIA: [id number] 3 Year Olds Preschool Teacher: Twin Marley M.D. Lymphocytes #/vol (Bld) 4.4 K/mcL High 0.9-3.6 O [facility] Comment on above: Performed By: #### F SBNP #### Unless otherwise noted, all testing performed by [place] [address] CLIA: [id number] 3 Year Olds Preschool Teacher: Twin Marley M.D. Lymphocytes/100 WBC (Bld) 38.3 % Normal [facility] Comment on above: Performed By: #### F SBNP #### Unless otherwise noted, all testing performed by [place] [address] CLIA: [id number] 3 Year Olds Preschool Teacher: Twin Marley M.D. MCH Entitic mass (RBC) 27.7 pg Normal 27.7-34.6 [facility] Comment on above: Performed By: #### F SBNP #### Unless otherwise noted, all testing performed by [place] [address] CLIA: [id number] 3 Year Olds Preschool Teacher: Twin Marley M.D. MCHC mass conc (RBC) 32.8 g/dL Low 32.9-35.5 [facility] Comment on above: Performed By: #### F SBNP #### Unless otherwise noted, all testing performed by [place] [phone] CLIA: [id number] 3 Year Olds Preschool Teacher: Twin Marley M.D. MCV Entitic volume (RBC) 84.5 fL Normal 82.8-99.3 [facility] Comment on above: Performed By: #### F SBNP #### Unless otherwise noted, all testing performed by [place] [phone] CLIA: [id number] 3 Year Olds Preschool Teacher: Twin Marley M.D. Monocytes #/vol (Bld) 0.8 K/mcL High 0.2-0.[address] [facility] Comment on above: Performed By: #### F SBNP #### Unless otherwise noted, all testing performed by [place] [phone] CLIA: [id number] 3 Year Olds Preschool Teacher: Twin Marley M.D. Monocytes/100 WBC (Bld) 6.6 % Normal [facility] Comment on above: Performed By: #### F SBNP #### Unless otherwise noted, all testing performed by [place] [address] CLIA: [id number] 3 Year Olds Preschool Teacher: Twin Marley M.D. Neutrophils #/vol (Bld) 5.7 K/mcL Normal 1.4-6.8 [facility] Comment on above: Performed By: #### F SBNP #### Unless otherwise noted, all testing performed by [place] [address] CLIA: [id number] 3 Year Olds Preschool Teacher: Twin Marley M.D. Platelet mean volume Entitic volume (Bld) 8.7 fL Normal 6.6-10.8 [facility] Comment on above: Performed By: #### F SBNP #### Unless otherwise noted, all testing performed by [place] [address] CLIA: [id number] 3 Year Olds Preschool Teacher: Twin Marley M.D. Platelets #/vol (Bld) 266 K/mcL Normal 139-[address] [facility] Comment on above: Performed By: #### F SBNP #### Unless otherwise noted, all testing performed by [place] [address] CLIA: [id number] 3 Year Olds Preschool Teacher: Twin Marley M.D. RBC #/vol (Bld) 5.30 M/mcL Normal 4.0-5.5 [facility] Comment on above: Performed By: #### F SBNP #### Unless otherwise noted, all testing performed by [place] [address] CLIA: [id number] 3 Year Olds Preschool Teacher: Twin Marley M.D. Segmented Neut % 49.5 % Normal [facility] Comment on above: Performed By: #### F SBNP #### Unless otherwise noted, all testing performed by [place] [address] CLIA: [id number] 3 Year Olds Preschool Teacher: Twin Marley M.D. WBC #/vol (Bld) 11.6 K/mcL High 3.6-10.4 [facility] Comment on above: Performed By: #### F SBNP #### Unless otherwise noted, all testing performed by [place] [phone] CLIA: [id number] 3 Year Olds Preschool Teacher: Twin Marley M.D. CHEMG (Basic Metabolic and M g)on 01-09-2018 Calcium mass conc 8.4 mg/dL Normal 8.4-10.2 [facility] Comment on above: Performed By: #### F SBNP #### Unless otherwise noted, all testing performed by [place] [phone] CLIA: [id number] 3 Year Olds Preschool Teacher: Twin Marley M.D. Chloride molar conc 103 mmol/L Normal 98-108 [facility] Comment on above: Performed By: #### F SBNP #### Unless otherwise noted, all testing performed by [place] [address] CLIA: [id number] 3 Year Olds Preschool Teacher: Twin Marley M.D. CO2 molar conc 27 mmol/L Normal 21-32 [facility] Comment on above: Performed By: #### F SBNP #### Unless otherwise noted, all testing performed by [place] [address] CLIA: [id number] 3 Year Olds Preschool Teacher: Twin Marley M.D. Creatinine mass conc 1.14 mg/dL Normal 0.50-1.30 [facility] Comment on above: Performed By: #### F SBNP #### Unless otherwise noted, all testing performed by [place] [address] CLIA: [id number] 3 Year Olds Preschool Teacher: Twin Marley M.D. GFR/1.73 sq M predicted among blacks MDRD vol rate/area (S/P/Bld) mL/min/{1.73_m2} Normal [facility] Comment on above: Result Comment: Afri can [place] GFR Calc Performed By: #### F SBNP #### Unless otherwise noted, all testing performed by [place] [address] CLIA: [id number] 3 Year Olds Preschool Teacher: Twin Marley M.D. GFR/1.73 sq M predicted among non-blacks MDRD vol rate/area (S/P/Bld) mL/min/{1.73_m2} Normal [facility] Comment on above: Result Comment: Non- GFR Calc eGFR is an estimated Glomerular Filtration Rate based on the value of the patient's serum creatinine. In outpatients, eGFR should be used as a helpful tool in screening for CKD. In inpatients or patients with acute renal failure, eGFR represents the GFR at the moment of the draw and should be used with caution. Performed By: #### F SBNP #### Unless otherwise noted, all testing performed by [place] [address] CLIA: [id number] 3 Year Olds Preschool Teacher: Twin Marley M.D. Glucose mass conc 102 mg/dL High 70-99 [facility] Comment on above: Result Comment: This test result might be falsely depressed or falsely elevated on samples drawn from patients taking Sulfasalazine and Sulfapyridine. Venipuncture should occur prior to taking either of these drugs. Performed By: #### F SBNP #### Unless otherwise noted, all testing performed by [place] [address] CLIA: [id number] 3 Year Olds Preschool Teacher: Twin Marley M.D. Magnesium mass conc 2.2 mg/dL Normal 1.6-2.4 [facility] Comment on above: Performed By: #### F SBNP #### Unless otherwise noted, all testing performed by [place] [phone] CLIA: [id number] 3 Year Olds Preschool Teacher: Twin Marley M.D. Potassium molar conc 4.2 mmol/L Normal 3.5-5.1 [facility] Comment on above: Performed By: #### F SBNP #### Unless otherwise noted, all testing performed by [place] [phone] CLIA: [id number] 3 Year Olds Preschool Teacher: Twin Marley M.D. Sodium molar conc 138 mmol/L Normal 135-145 [facility] Comment on above: Performed By: #### F SBNP #### Unless otherwise noted, all testing performed by [place] [address] CLIA: [id number] 3 Year Olds Preschool Teacher: Twin Marley M.D. Urea nitrogen mass conc 20 mg/dL Normal 8-25 [facility] Comment on above: Performed By: #### F SBNP #### Unless otherwise noted, all testing performed by [place] [address] CLIA: [id number] 3 Year Olds Preschool Teacher: Twin Marley M.D. Cardiac Troponin-Ion 018 Troponin I.cardiac mass conc No Biomarker evidence of myocardial injury within the past 14 hours. Normal [facility] Comment on above: Performed By: #### F SCBC #### Unless otherwise noted, all testing performed by [place] [address] CLIA: [id number] 3 Year Olds Preschool Teacher: Twin Marley M.D. Troponin I.cardiac mass conc ng/mL Normal < 45.0 [facility] Comment on above: Result Comment: Elev ation of troponin indicates some degree of myocardial necrosis but unless there is a significant rise and/or fall (if elevated) identified, it unlikely that an acute event has taken place Samples from patients routinely receiving high dose biotin therapy (100-300 mg/day) may show falsely decreased results. Please correlate clinically. Performed By: #### F SCBC #### Unless otherwise noted, all testing performed by [place] [address] CLIA: [id number] 3 Year Olds Preschool Teacher: Twin Marley M.D. Partial Thromboplastin Timeo n 01-09-2018 aPTT Coag time (Bld) 48 s High 23.0-34.0 [facility] Comment on above: Result Comment: Sugg ested therapeutic range for PTT is 68-104 sec. Performed By: #### F SBNP #### Unless otherwise noted, all testing performed by [place] [address] CLIA: [id number] 3 Year Olds Preschool Teacher: Twin Marley M.D. aPTT Coag time (Bld) 39 s High 23.0-34.0 [facility] Comment on above: Result Comment: Sugg ested therapeutic range for PTT is 68-104 sec. Performed By: #### F SCBC #### Unless otherwise noted, all testing performed by [place] [address] CLIA: [id number] 3 Year Olds Preschool Teacher: Twin Marley M.D. Protimeon 01-09-2018 INR Coag RelTime (PPP) 0.94 {INR} Normal [facility] Comment on above: Result Comment: [employer] recommended therapeutic range for Warfarin (Coumadin) therapy goals: PROPHYLAXIS/TREATMENT of: INR Venous Thrombosis, Pulmonary Embolism 2.0-3.0 Prevention of VTE (Orthopedic Surgery) 2.0-3.0 Atrial Fibrillation 2.0-3.0 Myocardial Infarction 2.0-3.0 Mechanical Prosthetic Heart Valves (Aortic position) 2.0-3.0 Mechanical Prosthetic Heart Valves (Mitral Position) 2.5-3.5 [employer] evidence-based clinical practice guidelines. CHEST. 2012 (9th ed) Performed By: #### F SBNP #### Unless otherwise noted, all testing performed by [place] [address] CLIA: [id number] 3 Year Olds Pres[employer] Teacher: Twin Marley M.D. Prothrombin time (PT) Coag time (PPP) 12.2 s Normal 11.8-14.3 [facility] Comment on above: Performed By: #### F SBNP #### Unless otherwise noted, all testing performed by [place] [address] CLIA: [id number] 3 Year Olds Preschool Teacher: Twin Marley M.D. BLDPATHon 01-08-2018 BLDPATH [id number] Patient Name: FERNANDO HELTON Source Peripheral Blood Diagnosis Absolute lymphocytosis present. Repeat CBC in 12 months or earlier if clinically indicated. If lymphocytosis persists, suggest flow cytometry to rule out a lymphoproliferative disorder. Electronically Signed By Hematology Department , Testing performed at [facility] (Case signed 01/09/2018) Normal [facility] Blood Smear Reviewon 018 Blood Smear Review See Pathology Report. Normal [facility] Comment on above: Performed By: #### F SCBC #### Unless otherwise noted, all testing performed by [place] [address] CLIA: [id number] 3 Year Olds Preschool Teacher: Twin Marley M.D. CBC with Diffon 01-08-2018 Band 1.9 % Normal 0-5 [facility] Comment on above: Performed By: #### F SBMET #### Unless otherwise noted, all testing performed by [place] [address] CLIA: [id number] 3 Year Olds Preschool Teacher: Twin Marley M.D. Basophils #/vol (Bld) 0.0 K/mcL Normal 0-0.2 [facility] Comment on above: Performed By: #### F SBMET #### Unless otherwise noted, all testing performed by [place] [address] CLIA: [id number] 3 Year Olds Preschool Teacher: Twin Marley M.D. Basophils/100 WBC (Bld) 0.0 % Normal [facility] Comment on above: Performed By: #### F SBMET #### Unless otherwise noted, all testing performed by [place] [address] CLIA: [id number] 3 Year Olds Preschool Teacher: Twin Marley M.D. Eosinophils #/vol (Bld) 0.6 K/mcL High 0-0.5 [facility] Comment on above: Performed By: #### F SBMET #### Unless otherwise noted, all testing performed by [place] [address] CLIA: [id number] 3 Year Olds Preschool Teacher: Twin Marley M.D. Eosinophils/100 WBC (Bld) 3.9 % Normal [facility] Comment on above: Performed By: #### F SBMET #### Unless otherwise noted, all testing performed by [place] [address] CLIA: [id number] 3 Year Olds Preschool Teacher: Twin Marley M.D. Erythrocyte distribution width Ratio (RBC) 15.1 % High 10-14.3 [facility] Comment on above: Performed By: #### F SBMET #### Unless otherwise noted, all testing performed by [place] [phone] CLIA: [id number] 3 Year Olds Preschool Teacher: Twin Marley M.D. Hematocrit Volume Fraction (Bld) 44.3 % Normal 37.9-49.2 [facility] Comment on above: Performed By: #### F SBMET #### Unless otherwise noted, all testing performed by [place] [phone] CLIA: [id number] 3 Year Olds Preschool Teacher: Twin Marley M.D. Hemoglobin mass conc (Bld) 14.5 g/dL Normal 12.9-16.9 [facility] Comment on above: Performed By: #### F SBMET #### Unless otherwise noted, all testing performed by [place] [phone] CLIA: [id number] 3 Year Olds Preschool Teacher: Twin Marley M.D. Lymphocytes #/vol (Bld) 5.1 K/mcL High 0.9-3.6 [facility] Comment on above: Performed By: #### F SBMET #### Unless otherwise noted, all testing performed by [place] [address] CLIA: [id number] 3 Year Olds Preschool Teacher: Twin Marley M.D. Lymphocytes/100 WBC (Bld) 35.9 % Normal [facility] Comment on above: Performed By: #### F SBMET #### Unless otherwise noted, all testing performed by [place] [address] CLIA: [id number] 3 Year Olds Preschool Teacher: Twin Marley M.D. MCH Entitic mass (RBC) 27.7 pg Normal 27.7-34.6 [facility] Comment on above: Performed By: #### F SBMET #### Unless otherwise noted, all testing performed by [place] [phone] CLIA: [id number] 3 Year Olds Preschool Teacher: Twin Marley M.D. MCHC mass conc (RBC) 32.6 g/dL Low 32.9-35.5 [facility] Comment on above: Performed By: #### F SBMET #### Unless otherwise noted, all testing performed by [place] [address] CLIA: [id number] 3 Year Olds Preschool Teacher: Twin Marley M.D. MCV Entitic volume (RBC) 84.9 fL Normal 82.8-99.3 [facility] Comment on above: Performed By: #### F SBMET #### Unless otherwise noted, all testing performed by [place] [address] CLIA: [id number] 3 Year Olds Preschool Teacher: Twin Marley M.D. Metamyelocytes/100 WBC (Bld) 1.9 % High 0 [facility] Comment on above: Performed By: #### F SBMET #### Unless otherwise noted, all testing performed by [place] [phone] CLIA: [id number] 3 Year Olds Preschool Teacher: Twin Marley M.D. Monocytes #/vol (Bld) 0.6 K/mcL Normal 0.2-0.[address] [facility] Comment on above: Performed By: #### F SBMET #### Unless otherwise noted, all testing performed by [place] [phone] CLIA: [id number] 3 Year Olds Preschool Teacher: Twin Marley M.D. Monocytes/100 WBC (Bld) 3.9 % Normal [facility] Comment on above: Performed By: #### F SBMET #### Unless otherwise noted, all testing performed by [place] [phone] CLIA: [id number] 3 Year Olds Preschool Teacher: Twin Marley M.D. Myelocyte 1.0 % High 0 [facility] Comment on above: Performed By: #### F SBMET #### Unless otherwise noted, all testing performed by [place] [phone] CLIA: [id number] 3 Year Olds Preschool Teacher: Twin Marley M.D. Neutrophils #/vol (Bld) 8.1 K/mcL High 1.4-6.8 [facility] Comment on above: Performed By: #### F SBMET #### Unless otherwise noted, all testing performed by [place] [phone] CLIA: [id number] 3 Year Olds Preschool Teacher: Twin Marley M.D. Platelet mean volume Entitic volume (Bld) 8.8 fL Normal 6.6-10.8 [facility] Comment on above: Performed By: #### F SBMET #### Unless otherwise noted, all testing performed by [place] [address] CLIA: [id number] 3 Year Olds Preschool Teacher: Twin Marley M.D. Platelets #/vol (Bld) 260 K/mcL Normal 139-[address] [facility] Comment on above: Performed By: #### F SBMET #### Unless otherwise noted, all testing performed by [place] [phone] CLIA: [id number] 3 Year Olds Preschool Teacher: Twin Marley M.D. RBC #/vol (Bld) 5.22 M/mcL Normal 4.0-5.5 [facility] Comment on above: Performed By: #### F SBMET #### Unless otherwise noted, all testing performed by [place] [phone] CLIA: [id number] 3 Year Olds Preschool Teacher: Twin Marley M.D. Segmented Neut % 51.5 % Normal [facility] Comment on above: Result Comment: Carline mccollum performed. Performed By: #### F SBMET #### Unless otherwise noted, all testing performed by [place] [phone] CLIA: [id number] 3 Year Olds Preschool Teacher: Twin Marley M.D. WBC #/vol (Bld) 14.3 K/mcL High 3.6-10.4 [facility] Comment on above: Performed By: #### F SBMET #### Unless otherwise noted, all testing performed by [place] [address] CLIA: [id number] 3 Year Olds Preschool Teacher: Twin Marley M.D. CHEST (ONE VIEW ONLY)on 12-14 CHEST (ONE VIEW ONLY) Final Report Accession No: [id number] Performed: Jan 08 2018 6:04PM Examination: CHEST (ONE VIEW ONLY) EXAMINATION: X-ray chest HISTORY: Chest pain all day. COMPARISON: X-ray chest 01/08/2018 at 11:44 AM. TECHNIQUE: AP portable. FINDINGS: The cardiac silhouette is magnified by technique. The mediastinum is not widened There is slight asymmetric elevation of the right hemidiaphragm. There is no lung consolidation or large effusion. No pneumothorax is seen. There is no acute osseous pathology. IMPRESSION: No active lung disease. No change from the prior. Interpreting Physician: MANI MURPHY M.D. Trans: n/a : cc: Normal [facility] Cardiac Troponin-Ion 018 Troponin I.cardiac mass conc ng/mL Normal < 45.0 [facility] Comment on above: Result Comment: Elev ation of troponin indicates some degree of myocardial necrosis but unless there is a significant rise and/or fall (if elevated) identified, it unlikely that an acute event has taken place Samples from patients routinely receiving high dose biotin therapy (100-300 mg/day) may show falsely decreased results. Please correlate clinically. Performed By: #### F SCBC #### Unless otherwise noted, all testing performed by [place] [address] CLIA: [id number] 3 Year Olds Preschool Teacher: Twin Marley M.D. Troponin I.cardiac mass conc No Biomarker evidence of myocardial injury within the past 14 hours. Normal [facility] Comment on above: Performed By: #### F SCBC #### Unless otherwise noted, all testing performed by [place] [address] CLIA: [id number] 3 Year Olds Preschool Teacher: Twin Marley M.D. Troponin I.cardiac mass conc ng/mL Normal < 45.0 [facility] Comment on above: Result Comment: Elev ation of troponin indicates some degree of myocardial necrosis but unless there is a significant rise and/or fall (if elevated) identified, it unlikely that an acute event has taken place Samples from patients routinely receiving high dose biotin therapy (100-300 mg/day) may show falsely decreased results. Please correlate clinically. Performed By: #### F SCBC #### Unless otherwise noted, all testing performed by [place] [address] CLIA: [id number] 3 Year Olds Preschool Teacher: Twin Marley M.D. [facility] 01-08-2018 Albumin mass conc 3.3 g/dL Normal 3.2-5.2 [facility] Comment on above: Performed By: #### F SCBC #### Unless otherwise noted, all testing performed by [place] [address] CLIA: [id number] 3 Year Olds Preschool Teacher: Twin Marley M.D. ALP enzyme act/vol 61 U/L Normal 40-150 [facility] Comment on above: Performed By: #### F SCBC #### Unless otherwise noted, all testing performed by [place] [address] CLIA: [id number] 3 Year Olds Preschool Teacher: Twin Marley M.D. ALT enzyme act/vol 41 U/L Normal 14-65 [facility] Comment on above: Result Comment: This test result might be falsely depressed or falsely elevated on samples drawn from patients taking Sulfasalazine and Sulfapyridine. Venipuncture should occur prior to taking either of these drugs. Performed By: #### F SCBC #### Unless otherwise noted, all testing performed by [place] [address] CLIA: [id number] 3 Year Olds Preschool Teacher: Twin Marley M.D. AST enzyme act/vol 19 U/L Normal 0-45 [facility] Comment on above: Result Comment: This test result might be falsely depressed or falsely elevated on samples drawn from patients taking Sulfasalazine and Sulfapyridine. Venipuncture should occur prior to taking either of these drugs. Performed By: #### F SCBC #### Unless otherwise noted, all testing performed by [place] [address] CLIA: [id number] 3 Year Olds Preschool Teacher: Twin Marley M.D. Bilirubin mass conc 0.8 mg/dL Normal 0.3-1.2 [facility] Comment on above: Performed By: #### F SCBC #### Unless otherwise noted, all testing performed by [place] [address] CLIA: [id number] 3 Year Olds Preschool Teacher: Twin Marley M.D. Calcium mass conc 8.4 mg/dL Normal 8.4-10.2 [facility] Comment on above: Performed By: #### F SCBC #### Unless otherwise noted, all testing performed by [place] [address] CLIA: [id number] 3 Year Olds Preschool Teacher: Twin Marley M.D. Chloride molar conc 107 mmol/L Normal 98-108 [facility] Comment on above: Performed By: #### F SCBC #### Unless otherwise noted, all testing performed by [place] [address] CLIA: [id number] 3 Year Olds Preschool Teacher: Twin Marley M.D. CO2 molar conc 26 mmol/L Normal 21-32 [facility] Comment on above: Performed By: #### F SCBC #### Unless otherwise noted, all testing performed by [place] [address] CLIA: [id number] 3 Year Olds Preschool Teacher: Twin Marley M.D. Creatinine mass conc 1.10 mg/dL Normal 0.50-1.30 [facility] Comment on above: Performed By: #### F SCBC #### Unless otherwise noted, all testing performed by [place] [phone] CLIA: [id number] 3 Year Olds Preschool Teacher: Twin Marley M.D. GFR/1.73 sq M predicted among blacks MDRD vol rate/area (S/P/Bld) mL/min/{1.73_m2} Normal [facility] Comment on above: Result Comment: Afri can [place] GFR Calc Performed By: #### F SCBC #### Unless otherwise noted, all testing performed by [place] [address] CLIA: [id number] 3 Year Olds Preschool Teacher: Twin Marley M.D. GFR/1.73 sq M predicted among non-blacks MDRD vol rate/area (S/P/Bld) mL/min/{1.73_m2} Normal [facility] Comment on above: Result Comment: Non- GFR Calc eGFR is an estimated Glomerular Filtration Rate based on the value of the patient's serum creatinine. In outpatients, eGFR should be used as a helpful tool in screening for CKD. In inpatients or patients with acute renal failure, eGFR represents the GFR at the moment of the draw and should be used with caution. Performed By: #### F SCBC #### Unless otherwise noted, all testing performed by [address] [place], [place] [address] CLIA: [id number] 3 Year Olds Preschool Teacher: Twin Marley M.D. Glucose mass conc 96 mg/dL Normal 70-99 [facility] Comment on above: Result Comment: This test result might be falsely depressed or falsely elevated on samples drawn from patients taking Sulfasalazine and Sulfapyridine. Venipuncture should occur prior to taking either of these drugs. Performed By: #### F SCBC #### Unless otherwise noted, all testing performed by [place] [address] CLIA: [id number] 3 Year Olds Preschool Teacher: Twin Marley M.D. Potassium molar conc 3.9 mmol/L Normal 3.5-5.1 [facility] Comment on above: Performed By: #### F SCBC #### Unless otherwise noted, all testing performed by [place] [address] CLIA: [id number] 3 Year Olds Preschool Teacher: Twin Marley M.D. Protein mass conc 6.6 g/dL Normal 6.0-8.0 [facility] Comment on above: Performed By: #### F SCBC #### Unless otherwise noted, all testing performed by [place] [address] CLIA: [id number] 3 Year Olds Preschool Teacher: Twin Marley M.D. Sodium molar conc 141 mmol/L Normal 135-145 [facility] Comment on above: Performed By: #### F SCBC #### Unless otherwise noted, all testing performed by [place] [address] CLIA: [id number] 3 Year Olds Preschool Teacher: Twin Marley M.D. Urea nitrogen mass conc 20 mg/dL Normal 8-25 [facility] Comment on above: Performed By: #### F SCBC #### Unless otherwise noted, all testing performed by [place] [address] CLIA: [id number] 3 Year Olds Preschool Teacher: Twin Marley M.D. Magnesiumon 01-08-2018 Magnesium mass conc 2.0 mg/dL Normal 1.6-2.4 [facility] Comment on above: Performed By: #### F SCBC #### Unless otherwise noted, all testing performed by [place] [address] CLIA: [id number] 3 Year Olds Preschool Teacher: Twin Marley M.D. NT-Pro BNP, Serumon 01-09-20 18 Natriuretic peptide B mass conc (Bld) 143 pg/mL High 0-125 [facility] Comment on above: Performed By: #### F SCBC #### Unless otherwise noted, all testing performed by [place] [address] CLIA: [id number] 3 Year Olds Preschool Teacher: Twin Marley M.D. Partial Thromboplastin Timeo n 01-08-2018 aPTT Coag time (Bld) 40 s High 23.0-34.0 [facility] Comment on above: Result Comment: Rosemary sauceda therapeutic range for PTT is 68-104 sec. Performed By: #### F SBMET #### Unless otherwise noted, all testing performed by [place] [address] CLIA: [id number] 3 Year Olds Preschool Teacher: Twin Marley M.D. Protimeon 01-08-2018 INR Coag RelTime (PPP) 0.99 {INR} Normal [facility] Comment on above: Result Comment: [employer] recommended therapeutic range for Warfarin (Coumadin) therapy goals: PROPHYLAXIS/TREATMENT of: INR Venous Thrombosis, Pulmonary Embolism 2.0-3.0 Prevention of VTE (Orthopedic Surgery) 2.0-3.0 Atrial Fibrillation 2.0-3.0 Myocardial Infarction 2.0-3.0 Mechanical Prosthetic Heart Valves (Aortic position) 2.0-3.0 Mechanical Prosthetic Heart Valves (Mitral Position) 2.5-3.5 [employer] evidence-based clinical practice guidelines. CHEST. 2012 (9th ed) Performed By: #### F SBMET #### Unless otherwise noted, all testing performed by [place] [address] CLIA: [id number] 3 Year Olds Preschool Teacher: Twin Marley M.D. Prothrombin time (PT) Coag time (PPP) 12.7 s Normal 11.8-14.3 [facility] Comment on above: Performed By: #### F SBMET #### Unless otherwise noted, all testing performed by [place] [address] CLIA: [id number] 3 Year Olds Preschool Teacher: Twin Marley M.D. TSHon 01-08-2018 Thyrotropin Qn 2.26 uIU/mL Normal 0.270-4.20 0 [facility] Comment on above: Result Comment: Samp les from patients routinely receiving high dose biotin therapy (100-300 mg/day) may show falsely decreased results. Please correlate clinically. Please note reference range change as of 12/04/17. Performed By: #### F SCBC #### Unless otherwise noted, all testing performed by [place] [address] CLIA: [id number] 3 Year Olds Preschool Teacher: Twin Marley M.D. Basic Metabolic Panelon 12-14 Calcium mass conc 8.4 mg/dL Normal 8.4-10.2 [facility] Comment on above: Performed By: #### F SBMET #### Unless otherwise noted, all testing performed by [place] [address] CLIA: [id number] 3 Year Olds Preschool Teacher: Twin Marley M.D. Chloride molar conc 108 mmol/L Normal 98-108 [facility] Comment on above: Performed By: #### F SBMET #### Unless otherwise noted, all testing performed by [place] [address] CLIA: [id number] 3 Year Olds Preschool Teacher: Twin Marley M.D. CO2 molar conc 24 mmol/L Normal 21-32 [facility] Comment on above: Performed By: #### F SBMET #### Unless otherwise noted, all testing performed by [place] [address] CLIA: [id number] 3 Year Olds Preschool Teacher: Twin Marley M.D. Creatinine mass conc 1.14 mg/dL Normal 0.50-1.30 [facility] Comment on above: Performed By: #### F SBMET #### Unless otherwise noted, all testing performed by [place] [address] CLIA: [id number] 3 Year Olds Preschool Teacher: Twin Marley M.D. GFR/1.73 sq M predicted among blacks MDRD vol rate/area (S/P/Bld) mL/min/{1.73_m2} Normal [facility] Comment on above: Result Comment: Afri can Israeli GFR Calc Performed By: #### F SBMET #### Unless otherwise noted, all testing performed by [place] [address] CLIA: [id number] 3 Year Olds Preschool Teacher: Twin Marley M.D. GFR/1.73 sq M predicted among non-blacks MDRD vol rate/area (S/P/Bld) mL/min/{1.73_m2} Normal [facility] Comment on above: Result Comment: Non- GFR Calc eGFR is an estimated Glomerular Filtration Rate based on the value of the patient's serum creatinine. In outpatients, eGFR should be used as a helpful tool in screening for CKD. In inpatients or patients with acute renal failure, eGFR represents the GFR at the moment of the draw and should be used with caution. Performed By: #### F SBMET #### Unless otherwise noted, all testing performed by [place] [address] CLIA: [id number] 3 Year Olds Preschool Teacher: Twin Marley M.D. Glucose mass conc 119 mg/dL High 70-99 [facility] Comment on above: Result Comment: This test result might be falsely depressed or falsely elevated on samples drawn from patients taking Sulfasalazine and Sulfapyridine. Venipuncture should occur prior to taking either of these drugs. Performed By: #### F SBMET #### Unless otherwise noted, all testing performed by [place] [address] CLIA: [id number] 3 Year Olds Preschool Teacher: Twin Marley M.D. Potassium molar conc 3.7 mmol/L Normal 3.5-5.1 [facility] Comment on above: Performed By: #### F SBMET #### Unless otherwise noted, all testing performed by [place] [address] CLIA: [id number] 3 Year Olds Preschool Teacher: Twin Marley M.D. Sodium molar conc 140 mmol/L Normal 135-145 [facility] Comment on above: Performed By: #### F SBMET #### Unless otherwise noted, all testing performed by [place] [address] CLIA: [id number] 3 Year Olds Preschool Teacher: Twin Marley M.D. Urea nitrogen mass conc 18 mg/dL Normal 8-25 [facility] Comment on above: Performed By: #### F SBMET #### Unless otherwise noted, all testing performed by [place] [address] CLIA: [id number] 3 Year Olds Preschool Teacher: Twin Marley M.D. DPATHon 09-24-2017 [facility] [id number] Patient Name: FERNANDO HELTON Source Peripheral Blood Diagnosis Absolute eosinophilia. Possible causes include allergic or drug reaction, cutaneous disorders, collagen vascular disease, parasite infection, pulmonary diseases including sarcoidosis, or underlying neoplasm. Suggest clinical correlation. Electronically Signed By Hematology Department , Testing performed at [facility] (Case signed 09/24/2017) Normal [facility] Basic Metabolic Panelon 09-12 Calcium mass conc 7.6 mg/dL Low 8.4-10.2 [facility] Comment on above: Performed By: #### P T #### Unless otherwise noted, all testing performed by [place] [address] CLIA: [id number] 3 Year Olds Preschool Teacher: Twin Marley M.D. Chloride molar conc 108 mmol/L Normal 98-108 [facility] Comment on above: Performed By: #### P T #### Unless otherwise noted, all testing performed by [place] [address] CLIA: [id number] 3 Year Olds Preschool Teacher: Twin Marley M.D. CO2 molar conc 27 mmol/L Normal 21-32 [facility] Comment on above: Performed By: #### P T #### Unless otherwise noted, all testing performed by [place] [address] CLIA: [id number] 3 Year Olds Preschool Teacher: Twin Marley M.D. Creatinine mass conc 1.13 mg/dL Normal 0.50-1.30 [facility] Comment on above: Performed By: #### P T #### Unless otherwise noted, all testing performed by [place] [address] CLIA: [id number] 3 Year Olds Preschool Teacher: Twin Marley M.D. GFR/1.73 sq M predicted among blacks MDRD vol rate/area (S/P/Bld) mL/min/{1.73_m2} Normal [facility] Comment on above: Result Comment: Afri can Israeli GFR Calc Performed By: #### P T #### Unless otherwise noted, all testing performed by [place] [address] CLIA: [id number] 3 Year Olds Preschool Teacher: Twin Marley M.D. GFR/1.73 sq M predicted among non-blacks MDRD vol rate/area (S/P/Bld) mL/min/{1.73_m2} Normal [facility] Comment on above: Result Comment: Non- GFR Calc eGFR is an estimated Glomerular Filtration Rate based on the value of the patient's serum creatinine. In outpatients, eGFR should be used as a helpful tool in screening for CKD. In inpatients or patients with acute renal failure, eGFR represents the GFR at the moment of the draw and should be used with caution. Performed By: #### P T #### Unless otherwise noted, all testing performed by [place] [address] CLIA: [id number] 3 Year Olds Preschool Teacher: Twin Marley M.D. Glucose mass conc 116 mg/dL High 70-99 [facility] Comment on above: Result Comment: This test result might be falsely depressed or falsely elevated on samples drawn from patients taking Sulfasalazine and Sulfapyridine. Venipuncture should occur prior to taking either of these drugs. Performed By: #### P T #### Unless otherwise noted, all testing performed by [place] [address] CLIA: [id number] 3 Year Olds Preschool Teacher: Twin Marley M.D. Potassium molar conc 3.9 mmol/L Normal 3.5-5.1 [facility] Comment on above: Performed By: #### P T #### Unless otherwise noted, all testing performed by [place] [address] CLIA: [id number] 3 Year Olds Preschool Teacher: Twin Marley M.D. Sodium molar conc 138 mmol/L Normal 135-145 [facility] Comment on above: Performed By: #### P T #### Unless otherwise noted, all testing performed by [place] [address] CLIA: [id number] 3 Year Olds Preschool Teacher: Twin Marley M.D. Urea nitrogen mass conc 17 mg/dL Normal 8-25 [facility] Comment on above: Performed By: #### P T #### Unless otherwise noted, all testing performed by [place] [address] CLIA: [id number] 3 Year Olds Preschool Teacher: Twin Marley M.D. Blood Smear Reviewon 018 Blood Smear Review See Pathology Report. Normal [facility] Comment on above: Performed By: #### F SBMET #### Unless otherwise noted, all testing performed by [place] [address] CLIA: [id number] 3 Year Olds Preschool Teacher: wTin Marley M.D. CBC with Diffon 09-24-2017 Basophils #/vol (Bld) 0.1 K/mcL Normal 0-0.[address] [facility] Comment on above: Performed By: #### F SBMET #### Unless otherwise noted, all testing performed by [place] [address] CLIA: [id number] 3 Year Olds Preschool Teacher: Twin Marley M.D. Basophils/100 WBC (Bld) 0.8 % Normal [facility] Comment on above: Performed By: #### F SBMET #### Unless otherwise noted, all testing performed by [place] [phone] CLIA: [id number] 3 Year Olds Preschool Teacher: Twin Marley M.D. Eosinophils #/vol (Bld) 0.7 K/mcL High 0-0.5 [facility] Comment on above: Performed By: #### F SBMET #### Unless otherwise noted, all testing performed by [place] [address] CLIA: [id number] 3 Year Olds Preschool Teacher: Twin Marley M.D. Eosinophils/100 WBC (Bld) 8.0 % Normal [facility] Comment on above: Performed By: #### F SBMET #### Unless otherwise noted, all testing performed by [place] [address] CLIA: [id number] 3 Year Olds Preschool Teacher: Twin Marley M.D. Erythrocyte distribution width Ratio (RBC) 15.4 % High 10-14.3 [facility] Comment on above: Performed By: #### F SBMET #### Unless otherwise noted, all testing performed by [place] [address] CLIA: [id number] 3 Year Olds Preschool Teacher: Twin Marley M.D. Hematocrit Volume Fraction (Bld) 44.6 % Normal 37.9-49.2 [facility] Comment on above: Performed By: #### F SBMET #### Unless otherwise noted, all testing performed by [place] [address] CLIA: [id number] 3 Year Olds Preschool Teacher: Twin Marley M.D. Hemoglobin mass conc (Bld) 14.8 g/dL Normal 12.9-16.9 [facility] Comment on above: Performed By: #### F SBMET #### Unless otherwise noted, all testing performed by [place] [address] CLIA: [id number] 3 Year Olds Preschool Teacher: Twin Marley M.D. Lymphocytes #/vol (Bld) 3.2 K/mcL Normal 0.9-3.6 [facility] Comment on above: Performed By: #### F SBMET #### Unless otherwise noted, all testing performed by [place] [address] CLIA: [id number] 3 Year Olds Preschool Teacher: Twin Marley M.D. Lymphocytes/100 WBC (Bld) 35.8 % Normal [facility] Comment on above: Performed By: #### F SBMET #### Unless otherwise noted, all testing performed by [place] [address] CLIA: [id number] 3 Year Olds Preschool Teacher: Twin Marley M.D. MCH Entitic mass (RBC) 28.3 pg Normal 27.7-34.6 [facility] Comment on above: Performed By: #### F SBMET #### Unless otherwise noted, all testing performed by [place] [address] CLIA: [id number] 3 Year Olds Preschool Teacher: Twin Marley M.D. MCHC mass conc (RBC) 33.3 g/dL Normal 32.9-35.5 [facility] Comment on above: Performed By: #### F SBMET #### Unless otherwise noted, all testing performed by [place] [address] CLIA: [id number] 3 Year Olds Preschool Teacher: Twin Marley M.D. MCV Entitic volume (RBC) 84.9 fL Normal 82.8-99.3 [facility] Comment on above: Performed By: #### F SBMET #### Unless otherwise noted, all testing performed by [place] [phone] CLIA: [id number] 3 Year Olds Preschool Teacher: Twin Marley M.D. Monocytes #/vol (Bld) 0.7 K/mcL High 0.2-0.[address] [facility] Comment on above: Performed By: #### F SBMET #### Unless otherwise noted, all testing performed by [place] [address] CLIA: [id number] 3 Year Olds Preschool Teacher: Twin Marley M.D. Monocytes/100 WBC (Bld) 7.7 % Normal [facility] Comment on above: Performed By: #### F SBMET #### Unless otherwise noted, all testing performed by [place] [address] CLIA: [id number] 3 Year Olds Preschool Teacher: Twin Marley M.D. Neutrophils #/vol (Bld) 4.2 K/mcL Normal 1.4-6.8 [facility] Comment on above: Performed By: #### F SBMET #### Unless otherwise noted, all testing performed by [place] [address] CLIA: [id number] 3 Year Olds Preschool Teacher: Twin Marley M.D. Platelet mean volume Entitic volume (Bld) 9.0 fL Normal 6.6-10.8 [facility] Comment on above: Performed By: #### F SBMET #### Unless otherwise noted, all testing performed by [place] [phone] CLIA: [id number] 3 Year Olds Preschool Teacher: Twin Marley M.D. Platelets #/vol (Bld) 280 K/mcL Normal 139-[address] [facility] Comment on above: Performed By: #### F SBMET #### Unless otherwise noted, all testing performed by [place] [address] CLIA: [id number] 3 Year Olds Preschool Teacher: Twin Marley M.D. RBC #/vol (Bld) 5.25 M/mcL Normal 4.0-5.5 [facility] Comment on above: Performed By: #### F SBMET #### Unless otherwise noted, all testing performed by [place] [address] CLIA: [id number] 3 Year Olds Preschool Teacher: Twin Marley M.D. RBC morphology finding Nom (Bld) Normal Normal Normal [facility] Comment on above: Performed By: #### F SBMET #### Unless otherwise noted, all testing performed by [place] [address] CLIA: [id number] 3 Year Olds Preschool Teacher: Twin Marley M.D. Segmented Neut % 47.7 % Normal [facility] Comment on above: Result Comment: Smea r reviewed to verify automated differential> Performed By: #### F SBMET #### Unless otherwise noted, all testing performed by [place] [address] CLIA: [id number] 3 Year Olds Preschool Teacher: Twin Marley M.D. WBC #/vol (Bld) 8.9 K/mcL Normal 3.6-10.4 [facility] Comment on above: Performed By: #### F SBMET #### Unless otherwise noted, all testing performed by [place] [address] CLIA: [id number] 3 Year Olds Preschool Teacher: Twin Marley M.D. Cardiac Troponin-Ion 09-24-2 018 Troponin I.cardiac mass conc ng/mL Normal < 45.0 [facility] Comment on above: Result Comment: Elev ation of troponin indicates some degree of myocardial necrosis but unless there is a significant rise and/or fall (if elevated) identified, it unlikely that an acute event has taken place Samples from patients routinely receiving high dose biotin therapy (100-300 mg/day) may show falsely decreased results. Please correlate clinically. Performed By: #### P T #### Unless otherwise noted, all testing performed by [place] [address] CLIA: [id number] 3 Year Olds Preschool Teacher: Twin Marley M.D. Troponin I.cardiac mass conc No Biomarker evidence of myocardial injury within the past 14 hours. Normal [facility] Comment on above: Performed By: #### P T #### Unless otherwise noted, all testing performed by [place] [address] CLIA: [id number] 3 Year Olds Preschool Teacher: Twin Marley M.D. Troponin I.cardiac mass conc No Biomarker evidence of myocardial injury within the past 14 hours. Normal [facility] Comment on above: Performed By: #### P T #### Unless otherwise noted, all testing performed by [place] [address] CLIA: [id number] 3 Year Olds Preschool Teacher: Twin Marley M.D. Troponin I.cardiac mass conc ng/mL Normal < 45.0 [facility] Comment on above: Result Comment: Elev ation of troponin indicates some degree of myocardial necrosis but unless there is a significant rise and/or fall (if elevated) identified, it unlikely that an acute event has taken place Samples from patients routinely receiving high dose biotin therapy (100-300 mg/day) may show falsely decreased results. Please correlate clinically. Performed By: #### P T #### Unless otherwise noted, all testing performed by [place] [address] CLIA: [id number] 3 Year Olds Preschool Teacher: Twin Marley M.D. D-Dimeron 09-24-2017 D-Dimer < 0.27 Normal < .5 [facility] Comment on above: Result Comment: This test is intended for use in conjunction with a clinical pretest probability (PTP) assessment model to exclude pulmonary embolism (PE) and deep vein thrombosis (DVT) in outpatients suspected of PE or DVT. Performed By: #### F SBMET #### Unless otherwise noted, all testing performed by [place] [address] CLIA: [id number] 3 Year Olds Preschool Teacher: Twin Marley M.D. Magnesiumon 09-24-2017 Magnesium mass conc 2.2 mg/dL Normal 1.6-2.4 [facility] Comment on above: Performed By: #### P T #### Unless otherwise noted, all testing performed by [place] [address] CLIA: [id number] 3 Year Olds Preschool Teacher: Twin Marley M.D. Basic Metabolic Panelon 09-12 Calcium mass conc 8.3 mg/dL Low 8.4-10.2 [facility] Comment on above: Performed By: #### P T #### Unless otherwise noted, all testing performed by [place] [address] CLIA: [id number] 3 Year Olds Preschool Teacher: Twin Marley M.D. Chloride molar conc 109 mmol/L High 98-108 [facility] Comment on above: Performed By: #### P T #### Unless otherwise noted, all testing performed by [place] [address] CLIA: [id number] 3 Year Olds Preschool Teacher: Twin Marley M.D. CO2 molar conc 26 mmol/L Normal 21-32 [facility] Comment on above: Performed By: #### P T #### Unless otherwise noted, all testing performed by [place] [address] CLIA: [id number] 3 Year Olds Preschool Teacher: Twin Marley M.D. Creatinine mass conc 1.12 mg/dL Normal 0.50-1.30 [facility] Comment on above: Performed By: #### P T #### Unless otherwise noted, all testing performed by [facility] [place] [address] CLIA: [id number] 3 Year Olds Preschool Teacher: Twin aMrley M.D. GFR/1.73 sq M predicted among blacks MDRD vol rate/area (S/P/Bld) mL/min/{1.73_m2} Normal [facility] Comment on above: Result Comment: Afri can [place] GFR Calc Performed By: #### P T #### Unless otherwise noted, all testing performed by [place] [address] CLIA: [id number] 3 Year Olds Preschool Teacher: Twin Marley M.D. GFR/1.73 sq M predicted among non-blacks MDRD vol rate/area (S/P/Bld) mL/min/{1.73_m2} Normal [facility] Comment on above: Result Comment: Non- GFR Calc eGFR is an estimated Glomerular Filtration Rate based on the value of the patient's serum creatinine. In outpatients, eGFR should be used as a helpful tool in screening for CKD. In inpatients or patients with acute renal failure, eGFR represents the GFR at the moment of the draw and should be used with caution. Performed By: #### P T #### Unless otherwise noted, all testing performed by [place] [address] CLIA: [id number] 3 Year Olds Preschool Teacher: Twin Marley M.D. Glucose mass conc 94 mg/dL Normal 70-99 [facility] Comment on above: Result Comment: This test result might be falsely depressed or falsely elevated on samples drawn from patients taking Sulfasalazine and Sulfapyridine. Venipuncture should occur prior to taking either of these drugs. Performed By: #### P T #### Unless otherwise noted, all testing performed by [place] [address] CLIA: [id number] 3 Year Olds Preschool Teacher: Twin Marley M.D. Potassium molar conc 4.0 mmol/L Normal 3.5-5.1 [facility] Comment on above: Performed By: #### P T #### Unless otherwise noted, all testing performed by [place] [address] CLIA: [id number] 3 Year Olds Preschool Teacher: Twin Marley M.D. Sodium molar conc 140 mmol/L Normal 135-145 [facility] Comment on above: Performed By: #### P T #### Unless otherwise noted, all testing performed by [place] [address] CLIA: [id number] 3 Year Olds Preschool Teacher: Twin Marley M.D. Urea nitrogen mass conc 17 mg/dL Normal 8-25 [facility] Comment on above: Performed By: #### P T #### Unless otherwise noted, all testing performed by [place] [address] CLIA: [id number] 3 Year Olds Preschool Teacher: Twin Marley M.D. CBC w/o Diffon 09-23-2017 Erythrocyte distribution width Ratio (RBC) 15.1 % High 10-14.3 [facility] Comment on above: Performed By: #### P T #### Unless otherwise noted, all testing performed by [place] [address] CLIA: [id number] 3 Year Olds Preschool Teacher: Twin Marley M.D. Hematocrit Volume Fraction (Bld) 46.6 % Normal 37.9-49.2 [facility] Comment on above: Performed By: #### P T #### Unless otherwise noted, all testing performed by [address] [address] CLIA: [id number] 3 Year Olds Preschool Teacher: Twin Marley M.D. Hemoglobin mass conc (Bld) 15.5 g/dL Normal 12.9-16.9 [facility] Comment on above: Performed By: #### P T #### Unless otherwise noted, all testing performed by [place] [address] CLIA: [id number] 3 Year Olds Preschool Teacher: Twin Marley M.D. MCH Entitic mass (RBC) 28.2 pg Normal 27.7-34.6 [facility] Comment on above: Performed By: #### P T #### Unless otherwise noted, all testing performed by [place] [address] CLIA: [id number] 3 Year Olds Preschool Teacher: Twin Marley M.D. MCHC mass conc (RBC) 33.3 g/dL Normal 32.9-35.5 [facility] Comment on above: Performed By: #### P T #### Unless otherwise noted, all testing performed by [place] [address] CLIA: [id number] 3 Year Olds Preschool Teacher: Twin Marley M.D. MCV Entitic volume (RBC) 84.5 fL Normal 82.8-99.3 [facility] Comment on above: Performed By: #### P T #### Unless otherwise noted, all testing performed by [place] [address] CLIA: [id number] 3 Year Olds Preschool Teacher: Twin Marley M.D. Platelet mean volume Entitic volume (Bld) 8.4 fL Normal 6.6-10.8 [facility] Comment on above: Performed By: #### P T #### Unless otherwise noted, all testing performed by [place] [address] CLIA: [id number] 3 Year Olds Preschool Teacher: Twin Marley M.D. Platelets #/vol (Bld) 269 K/mcL Normal 139-[address] [facility] Comment on above: Performed By: #### P T #### Unless otherwise noted, all testing performed by [place] [address] CLIA: [id number] 3 Year Olds Preschool Teacher: Twin Marley M.D. RBC #/vol (Bld) 5.52 M/mcL High 4.0-5.5 [facility] Comment on above: Performed By: #### P T #### Unless otherwise noted, all testing performed by [place] [address] CLIA: [id number] 3 Year Olds Preschool Teacher: Twin Marley M.D. WBC #/vol (Bld) 11.3 K/mcL High 3.6-10.4 [facility] Comment on above: Performed By: #### P T #### Unless otherwise noted, all testing performed by [place] [address] CLIA: [id number] 3 Year Olds Preschool Teacher: Twin Marley M.D. CHEST (ONE VIEW ONLY)on 09-12 CHEST (ONE VIEW ONLY) Final Report Accession No: [id number] Performed: Sep 23 2017 4:18PM Examination: CHEST (ONE VIEW ONLY) PORTABLE CHEST: COMPARISON: Two-view chest from 09/11/2017. REASON FOR STUDY: Chest pain. REPORT: The lungs are clear and well aerated. No effusion, nodule or pneumothorax is noted. The diaphragm and bony elements are intact. No infiltrate is noted. IMPRESSION: Nonacute portable chest. Interpreting Physician: BI BAUER D.O. Trans: istumb : cc: Normal [facility] Cardiac Troponin-Ion 018 Troponin I.cardiac mass conc ng/mL Normal < 45.0 [facility] Comment on above: Result Comment: Elev ation of troponin indicates some degree of myocardial necrosis but unless there is a significant rise and/or fall (if elevated) identified, it unlikely that an acute event has taken place Samples from patients routinely receiving high dose biotin therapy (100-300 mg/day) may show falsely decreased results. Please correlate clinically. Performed By: #### P T #### Unless otherwise noted, all testing performed by [place] [address] CLIA: [id number] 3 Year Olds Preschool Teacher: Twin Marley M.D. Troponin I.cardiac mass conc No Biomarker evidence of myocardial injury within the past 14 hours. Normal [facility] Comment on above: Performed By: #### P T #### Unless otherwise noted, all testing performed by [place] [address] CLIA: [id number] 3 Year Olds Preschool Teacher: Twin Marley M.D. Cardiac Troponin-Ion 09-12 Troponin I.cardiac mass conc ng/mL Normal < 45 [facility] Comment on above: Result Comment: Elev ation of troponin indicates some degree of myocardial necrosis but unless there is a significant rise and/or fall (if elevated) identified, it unlikely that an acute event has taken place Samples from patients routinely receiving high dose biotin therapy (100-300 mg/day) may show falsely decreased results. Please correlate clinically. Performed By: #### P T #### Unless otherwise noted, all testing performed by [place] [address] CLIA: [id number] 3 Year Olds Preschool Teacher: Twin Ayaka, M.D. History And Physical-Dictate jessica 09-23-2017 History And Physical-Dictated [facility] Blaine HOFFMANN. [place] [id number] NAME FERNANDO HELTON [facility] [id number] 1970 ADMIT HISTORY AND PHYSICAL CHIEF COMPLAINT Chest pain. HISTORY OF PRESENT ILLNESS 47-year-old male with past medical history of coronary disease, status post PA in 2012, with stent in 2014. Saw nurse practitioner from [facility]iology [facility] last Sunday and came with chest pain, mainly started this morning, constant, and nothing makes it better. Nothing makes it worse. Came to ER. Dropped the pain from 7 to 2 now in the room. Feels nauseated. No vomiting. No syncope. No dizziness or lightheadedness. No blood in the urine or in the stool. He is on Effient and he says he is taking his medication regularly and he has just started smoking back again. PAST MEDICAL HISTORY Coronary artery disease, with stent in 2012, 2014; hypertension; hyperlipidemia; obstructive sleep apnea. PAST SURGICAL HISTORY Appendectomy, bilateral shoulder surgery, sinus surgery. MEDICATIONS Reviewed. ALLERGIES In the chart. SOCIAL HISTORY He is a smoker. Started again after being off. No drug, alcohol, or illicit drugs. REVIEW OF SYSTEMS As I mentioned, otherwise, all 10 systems reviewed, otherwise, negative. PHYSICAL EXAMINATION General: Patient is lying in bed, no acute distress. Vital Signs: He is afebrile. Pulse is 69, respiratory rate 14, blood pressure 119/81. HEENT: Extraocular muscles intact. Neck: Supple. Heart: Regular rate. Chest: Clear to auscultation. Abdomen: Soft, nontender. Extremities: Trace edema. Neurologic: Alert and oriented x3. Muscle strength 5/5. Skin: Within normal limits. DIAGNOSTIC DATA Glucose 94, BUN 17, creatinine 1.2. GFR above 60. Calcium 8.3, sodium 140, potassium 4, chloride 109, CO2 26. Troponin less than 15. INR 0.94. White blood cell count 11.3, hemoglobin 15, hematocrit 46. Chest x-ray: No acute finding. ASSESSMENT AND PLAN 1. Chest pain, rule out acute coronary syndrome. Cardiac enzymes negative. We will check cardiac enzymes. We will keep the patient . Continue with aspirin, statin, beta jose armando. Check EKG in the morning. He is already been seen by Dr. Aguilar in the ER, which shows EKG the same trend [address] elevation in the anterior leads and repeat EKG in the morning. 2. Hypertension. 3. Hyperlipidemia. 4. Smoker. 5. Gastrointestinal prophylaxis. MD Pina PRADHAN 09/23/2017 20:41 [id number] T 09/23/2017 21:07 AFS/MODL Electronically Signed By Sofie Daigle M.D. on 27 Sep 2017 19:09:11 GMT Normal [facility] Partial Thromboplastin Timeo n 09-23-2017 aPTT Coag time (Bld) 28 s Normal 23.0-34.0 [facility] Comment on above: Result Comment: Rosemary sauceda therapeutic range for PTT is 68-104 sec. Performed By: #### P T #### Unless otherwise noted, all testing performed by [place] [id number] CLIA: [id number] 3 Year Olds Preschool Teacher: Twin Marley M.D. Protimeon 09-23-2017 INR Coag RelTime (PPP) 0.94 {INR} Normal [facility] Comment on above: Result Comment: The [employer] recommended therapeutic range for Warfarin (Coumadin) therapy goals: PROPHYLAXIS/TREATMENT of: INR Venous Thrombosis, Pulmonary Embolism 2.0-3.0 Prevention of VTE (Orthopedic Surgery) 2.0-3.0 Atrial Fibrillation 2.0-3.0 Myocardial Infarction 2.0-3.0 Mechanical Prosthetic Heart Valves (Aortic position) 2.0-3.0 Mechanical Prosthetic Heart Valves (Mitral Position) 2.5-3.5 [employer] evidence-based clinical practice guidelines. CHEST. 2012 (9th ed) Performed By: #### E DCTNI, PTT, PT, CBCWOD, CHEM8 #### Unless otherwise noted, all testing performed by [place] [address] CLIA: [id number] 3 Year Olds Preschool Teacher: Twin Marley M.D. Prothrombin time (PT) Coag time (PPP) 12.2 s Normal 11.8-14.3 [facility] Comment on above: Performed By: #### E DCTNI, PTT, PT, CBCWOD, CHEM8 #### Unless otherwise noted, all testing performed by [place] [address] CLIA: [id number] 3 Year Olds Preschool Teacher: Twin Marley M.D. Culture, Strep (Throat)on Culture, Strep (Throat) Test Name: Cultu re, Strep (Throat) Culture Status: Final Culture Report: No Group A streptococci isolated. Micro Source: Throat Normal [facility] Comment on above: Performed By: #### S TRCUL #### Unless otherwise noted, all testing performed by [place] [address] CLIA: [id number] 3 Year Olds Preschool Teacher: Twin Marley M.D. FS BNP (B-NatriureticPeptide )on 09-11-2017 Natriuretic peptide B mass conc (Bld) 51.5 pg/mL Normal < 100 [facility] Comment on above: Result Comment: BNP may be falsely elevated in patients taking ENTRESTO. Testing performed at [address]; Medical Director Hris Orion Gusman M.D. Performed By: #### F SBNP #### Unless otherwise noted, all testing performed by [place] [address] CLIA: [id number] 3 Year Olds Preschool Teacher: Twin Marley M.D. FS Basic Metabolic Panelon 0 09-11-2017 Calcium mass conc 9.2 mg/dL Normal 8.4-10.2 [facility] Comment on above: Performed By: #### F SBMET #### Unless otherwise noted, all testing performed by [place] [address] CLIA: [id number] 3 Year Olds Preschool Teacher: Twin Marley M.D. Chloride molar conc 107 mmol/L Normal 98-108 [facility] Comment on above: Performed By: #### F SBMET #### Unless otherwise noted, all testing performed by [place] [address] CLIA: [id number] 3 Year Olds Preschool Teacher: Twin Marley M.D. CO2 molar conc 26 mmol/L Normal 21-32 [facility] Comment on above: Performed By: #### F SBMET #### Unless otherwise noted, all testing performed by [place] [phone] CLIA: [id number] 3 Year Olds Preschool Teacher: Twin Marley M.D. Creatinine mass conc 1.1 mg/dL Normal 0.50-1.30 [facility] Comment on above: Performed By: #### F SBMET #### Unless otherwise noted, all testing performed by [place] [phone] CLIA: [id number] 3 Year Olds Preschool Teacher: Twin Marley M.D. Glucose mass conc 96 mg/dL Normal 65-99 [facility] Comment on above: Performed By: #### F SBMET #### Unless otherwise noted, all testing performed by [place] [phone] CLIA: [id number] 3 Year Olds Preschool Teacher: Twin Marley M.D. Potassium molar conc 3.9 mmol/L Normal 3.5-5.1 [facility] Comment on above: Performed By: #### F SBMET #### Unless otherwise noted, all testing performed by [place] [address] CLIA: [id number] 3 Year Olds Preschool Teacher: Twin Marley M.D. Sodium molar conc 139 mmol/L Normal 135-145 [facility] Comment on above: Performed By: #### F SBMET #### Unless otherwise noted, all testing performed by [place] [address] CLIA: [id number] 3 Year Olds Preschool Teacher: Twin Marley M.D. Testing performed [facility] [facility] Comment on above: Result Comment: Test ing performed at [facility], [address] [place] [address]; Medical Director Hris Orion Gusman M.D. Performed By: #### F SBMET #### Unless otherwise noted, all testing performed by [place] [address] CLIA: [id number] 3 Year Olds Preschool Teacher: Twin Marley M.D. Urea nitrogen mass conc 15 mg/dL Normal 8-25 O [facility] Comment on above: Performed By: #### F SBMET #### Unless otherwise noted, all testing performed by [place] [address] CLIA: [id number] 3 Year Olds Preschool Teacher: Twin Marley M.D. FS CBCon 09-11-2017 Erythrocyte distribution width Ratio (RBC) 15.2 % High 11.6-14.8 [facility] Comment on above: Performed By: #### F SCBC #### Unless otherwise noted, all testing performed by [place] [address] CLIA: [id number] 3 Year Olds Preschool Teacher: Twin Marley M.D. Hematocrit Volume Fraction (Bld) 43.2 % Normal 41.0-53.0 [facility] Comment on above: Performed By: #### F SCBC #### Unless otherwise noted, all testing performed by [place] [address] CLIA: [id number] 3 Year Olds Preschool Teacher: Twin Marley M.D. Hemoglobin mass conc (Bld) 14.2 g/dL Normal 13.5-17.5 [facility] Comment on above: Performed By: #### F SCBC #### Unless otherwise noted, all testing performed by [place] [phone] CLIA: [id number] 3 Year Olds Preschool Teacher: Twin Marley M.D. Lymphocytes #/vol (Bld) 4.2 K/mcL High 0.90-4.00 [facility] Comment on above: Performed By: #### F SCBC #### Unless otherwise noted, all testing performed by [place] [phone] CLIA: [id number] 3 Year Olds Preschool Teacher: Twin Marley M.D. Lymphocytes/100 WBC (Bld) 39.2 % Normal [facility] Comment on above: Performed By: #### F SCBC #### Unless otherwise noted, all testing performed by [place] [address] CLIA: [id number] 3 Year Olds Preschool Teacher: Twin Marley M.D. MCH Entitic mass (RBC) 28.4 pg Normal 26.0-34.0 [facility] Comment on above: Performed By: #### F SCBC #### Unless otherwise noted, all testing performed by [place] [address] CLIA: [id number] 3 Year Olds Preschool Teacher: Twin Marley M.D. MCHC mass conc (RBC) 32.9 g/dL Normal 31.0-37.0 [facility] Comment on above: Performed By: #### F SCBC #### Unless otherwise noted, all testing performed by [place] [address] CLIA: [id number] 3 Year Olds Preschool Teacher: Twin Marley M.D. MCV Entitic volume (RBC) 86.4 fL Normal 80-100 [facility] Comment on above: Performed By: #### F SCBC #### Unless otherwise noted, all testing performed by [place] [address] CLIA: [id number] 3 Year Olds Preschool Teacher: Twin Marley M.D. Neutrophils #/vol (Bld) 5.4 K/mcL Normal 1.70-7.00 [facility] Comment on above: Performed By: #### F SCBC #### Unless otherwise noted, all testing performed by [place] [address] CLIA: [id number] 3 Year Olds Preschool Teacher: Twin Marley M.D. Platelet mean volume Entitic volume (Bld) 11.6 fL Normal 9.0-15.5 [facility] Comment on above: Performed By: #### F SCBC #### Unless otherwise noted, all testing performed by [place] [address] CLIA: [id number] 3 Year Olds Preschool Teacher: Twin Marley M.D. Platelets #/vol (Bld) 271 K/mcL Normal 150-[address] [facility] Comment on above: Performed By: #### F SCBC #### Unless otherwise noted, all testing performed by [place] [address] CLIA: [id number] 3 Year Olds Preschool Teacher: Twin Marley M.D. RBC #/vol (Bld) 5.00 M/mcL Normal 4.50-5.90 [facility] Comment on above: Performed By: #### F SCBC #### Unless otherwise noted, all testing performed by [place] [address] CLIA: [id number] 3 Year Olds Preschool Teacher: Twin Marley M.D. Segmented Neut % 49.5 % Normal [facility] Comment on above: Performed By: #### F SCBC #### Unless otherwise noted, all testing performed by [place] [address] CLIA: [id number] 3 Year Olds Preschool Teacher: Twin Marley M.D. Testing performed [facility] FSED Normal [facility] Comment on above: Result Comment: Test ing performed at [address]; Medical Director Hris Orion Gusman M.D. Performed By: #### F SCBC #### Unless otherwise noted, all testing performed by [place] [address] CLIA: [id number] 3 Year Olds Preschool Teacher: Twin Marley M.D. WBC #/vol (Bld) 10.8 K/mcL Normal 4.5-11.0 [facility] Comment on above: Performed By: #### F SCBC #### Unless otherwise noted, all testing performed by [address] [place], [place] [address] CLIA: [id number] 3 Year Olds Preschool Teacher: Twin Marley M.D. FS D-Dimeron 09-11-2017 FS D-Dimer < 100 Normal < 350 [facility] Comment on above: Result Comment: This test is used as an aid in the assessment and evaluation of patients suspected of having disseminated intravascular coagulation or thromboembolitic events including pulmonary embolism. It should not be used as absolute evidence of PE or DVT. Testing performed at [facility], [address] [place] [address]; Medical Director Hris Orion Gusman M.D. Performed By: #### F SDDIMR #### Unless otherwise noted, all testing performed by [place] [address] CLIA: [id number] 3 Year Olds Preschool Teacher: Twin Marley M.D. FS Pochi instrument alerton 09-11-2017 FS Pochi instrument alert Invalid Results Normal [facility] Comment on above: Result Comment: Poss ible interfering substances and/or clinically significant abnormalities that require smear review. Recommend re-draw, reordering as CBC w/Diff and sending to [facility] laboratory. Performed By: #### F SPOCHI #### Unless otherwise noted, all testing performed by [place] [address] CLIA: [id number] 3 Year Olds Preschool Teacher: Twin Marley M.D. FS Rapid Strep A Scrnon 08-14 S. pyogenes Ag IA Ql (Unsp spec) Negative Normal Negative [facility] Comment on above: Result Comment: Nega tive rapid antigen tests will be followed-up with a culture. Rapid test procedural control acceptable. Testing performed at [facility], [address] [place] [address]; Medical Director Hris Orion Gusman M.D. Performed By: #### F SSTREP #### Unless otherwise noted, all testing performed by [facility] [address] [place], [place] [address] CLIA: [id number] 3 Year Olds Preschool Teacher: Twin Marley M.D. FS Troponin Ion 09-11-2017 Troponin I.cardiac mass conc ng/mL Normal < 0.05 [facility] Comment on above: Result Comment: Test ing performed at [facility], [address] [place] [address]; Medical Director Hris Orion Gusman M.D. Performed By: #### F STROPI #### Unless otherwise noted, all testing performed by [place] [id number] CLIA: [id number] 3 Year Olds Preschool Teacher: Twin Marley M.D. Protimeon 09-11-2017 INR Coag RelTime (PPP) CANCEL PER [facility] ED, CREDIT FORM COMPLETED Normal [facility] Comment on above: Result Comment: Comm ent deleted 09/11/2017 18:47 by LEVONENNE: [employer] recommended therapeutic range for Warfarin (Coumadin) therapy goals: PROPHYLAXIS/TREATMENT of: INR Venous Thrombosis, Pulmonary Embolism 2.0-3.0 Prevention of VTE (Orthopedic Surgery) 2.0-3.0 Atrial Fibrillation 2.0-3.0 Myocardial Infarction 2.0-3.0 Mechanical Prosthetic Heart Valves (Aortic position) 2.0-3.0 Mechanical Prosthetic Heart Valves (Mitral Position) 2.5-3.5 [employer] evidence-based clinical practice guidelines. CHEST. 2012 (9th ed) [employer] recommended therapeutic range for Warfarin (Coumadin) therapy goals: PROPHYLAXIS/TREATMENT of: INR Venous Thrombosis, Pulmonary Embolism 2.0-3.0 Prevention of VTE (Orthopedic Surgery) 2.0-3.0 Atrial Fibrillation 2.0-3.0 Myocardial Infarction 2.0-3.0 Mechanical Prosthetic Heart Valves (Aortic position) 2.0-3.0 Mechanical Prosthetic Heart Valves (Mitral Position) 2.5-3.5 [employer] evidence-based clinical practice guidelines. CHEST. 2012 (9th ed) Test INR with result of CANCEL PER [facility], CREDIT FORM COMPLETED was originally reported as 1.1 and was changed on 09/11/2017 18:47 by JENN Performed By: #### P T #### Unless otherwise noted, all testing performed by [address] [address] CLIA: [id number] 3 Year Olds Preschool Teacher: Twin Marley M.D. Prothrombin time (PT) Coag time (PPP) CANCEL PER [facility] ED, CREDIT FORM COMPLETED Normal 11.8-14.3 [facility] Comment on above: Result Comment: Test Protime with result of CANCEL PER [facility] ED, CREDIT FORM COMPLETED was originally reported as 9.6 and was changed on 09/11/2017 18:47 by JENN Performed By: #### P T #### Unless otherwise noted, all testing performed by [place] [address] CLIA: [id number] 3 Year Olds Preschool Teacher: Twin Marley M.D. Blood Smear Reviewon 017 Blood Smear Review See Pathology Report. [facility] RBC morphology finding Nom (Bld) Normal Normal [facility] CBC and Differentialon 10-26 Basophils #/vol (Bld) 0.1 K/mcL 0 - 0.2 [facility] Basophils/100 WBC (Bld) 0.6 % [facility] Eosinophils #/vol (Bld) 0.8 K/mcL High 0 - 0.5 O [facility] Eosinophils/100 WBC (Bld) 7.0 % [facility] Erythrocyte distribution width Ratio (RBC) 15.2 % High 10 - 14.3 % [facility] Hematocrit Volume Fraction (Bld) 46.0 % 37.9 - 49.2 % [facility] Hemoglobin mass conc (Bld) 15.3 g/dL 12.9 - 16.9 g/dL [facility] Interpretation and review of laboratory results Abnormal [facility] Lymphocytes #/vol (Bld) 3.9 K/mcL High 0.9 - 3.6 [facility] Lymphocytes/100 WBC (Bld) 36.3 % [facility] MCH Entitic mass (RBC) 27.6 pg Low 27.7 - 34.6 pg [facility] MCHC mass conc (RBC) 33.2 g/dL 32.9 - 35.5 g/dL [facility] MCV Entitic volume (RBC) 83.1 fL 82. 8 - 99.3 [facility] Monocytes #/vol (Bld) 0.7 K/mcL High 0.2 - 0.6 [facility] Monocytes/100 WBC (Bld) 6.9 % [facility] Neutrophils #/vol (Bld) 5.3 K/mcL 1.4 - 6.8 [facility] Platelet mean volume Entitic volume (Bld) 8.9 fL 6.6 - 10.8 [facility] Platelets #/vol (Bld) 260 K/mcL 139 - 354 [facility] RBC #/vol (Bld) 5.53 M/mcL High 4.0 - 5.5 [facility] Segmented Neut 49.2 % [facility] WBC #/vol (Bld) 10.8 K/mcL High 3.6 - 10.4 [facility] CRP, C-Reactive Proteinon CRP - Inflammation 15.2 mg/L High 0 - 10 mg/L [facility] LDHon 10-26-2016 LDH 158 U/L 100 - 250 U/L [facility] Sedimentation Rateon 017 Sed Rate 10 MM/hr. 0 - 15 [facility] CBC and Differentialon 10-12 Basophils #/vol (Bld) 0.1 K/mcL 0 - 0.2 [facility] Basophils/100 WBC (Bld) 0.6 % [facility] Eosinophils #/vol (Bld) 0.5 K/mcL 0 - 0.5 [facility] Eosinophils/100 WBC (Bld) 4.3 % [facility] Erythrocyte distribution width Ratio (RBC) 14.8 % High 10 - 14.3 % [facility] Hematocrit Volume Fraction (Bld) 48.0 % 37.9 - 49.2 % [facility] Hemoglobin mass conc (Bld) 15.8 g/dL 12.9 - 16.9 g/dL [facility] Interpretation and review of laboratory results Abnormal [facility] Lymphocytes #/vol (Bld) 4.6 K/mcL High 0.9 - 3.6 [facility] Lymphocytes/100 WBC (Bld) 36.3 % [facility] MCH Entitic mass (RBC) 27.5 pg Low 27.7 - 34.6 pg [facility] MCHC mass conc (RBC) 33.0 g/dL 32.9 - 35.5 g/dL [facility] MCV Entitic volume (RBC) 83.4 fL 82. 8 - 99.3 [facility] Monocytes #/vol (Bld) 1.0 K/mcL High 0.2 - 0.6 [facility] Monocytes/100 WBC (Bld) 8.2 % [facility] Neutrophils #/vol (Bld) 6.4 K/mcL 1.4 - 6.8 [facility] Platelet mean volume Entitic volume (Bld) 9.5 fL 6.6 - 10.8 [facility] Platelets #/vol (Bld) 252 K/mcL 139 - 354 [facility] RBC #/vol (Bld) 5.75 M/mcL High 4.0 - 5.5 [facility] Segmented Neut 50.6 % [facility] WBC #/vol (Bld) 12.7 K/mcL High 3.6 - 10.4 [facility] TSHon 10-12-2016 Thyrotropin Qn 1.58 uIU/mL 0.320 - 5.000 [facility] Vitamin B12 and Folateson Cobalamin (Vitamin B12) mass conc 375 pg/mL 193 - 986 pg/mL [facility] Folate 18.2 ng/mL High 3.1 - 17.5 ng/mL [facility] CBC and Differentialon 09-18 Basophils #/vol (Bld) 0.1 K/mcL 0 - 0.2 [facility] Basophils/100 WBC (Bld) 0.7 % [facility] Eosinophils #/vol (Bld) 0.5 K/mcL 0 - 0.5 [facility] Eosinophils/100 WBC (Bld) 5.7 % [facility] Erythrocyte distribution width Ratio (RBC) 14.8 % High 10 - 14.3 % [facility] Hematocrit Volume Fraction (Bld) 46.2 % 37.9 - 49.2 % [facility] Hemoglobin mass conc (Bld) 15.5 g/dL 12.9 - 16.9 g/dL [facility] Interpretation and review of laboratory results Abnormal [facility] Lymphocytes #/vol (Bld) 3.2 K/mcL 0.9 - 3.6 [facility] Lymphocytes/100 WBC (Bld) 33.3 % [facility] MCH Entitic mass (RBC) 27.9 pg 27.7 - 34.6 pg [facility] MCHC mass conc (RBC) 33.6 g/dL 32.9 - 35.5 g/dL [facility] MCV Entitic volume (RBC) 83.2 fL 82. 8 - 99.3 [facility] Monocytes #/vol (Bld) 0.7 K/mcL High 0.2 - 0.6 [facility] Monocytes/100 WBC (Bld) 7.3 % [facility] Neutrophils #/vol (Bld) 5.1 K/mcL 1.4 - 6.8 [facility] Platelet mean volume Entitic volume (Bld) 8.8 fL 6.6 - 10.8 [facility] Platelets #/vol (Bld) 252 K/mcL 139 - 354 [facility] RBC #/vol (Bld) 5.56 M/mcL High 4.0 - 5.5 [facility] Segmented Neut 53.0 % [facility] WBC #/vol (Bld) 9.6 K/mcL 3.6 - 10.4 [facility] Comprehensive Metabolic Pane sangeetha 09-18-2016 Albumin mass conc 4.4 g/dL 3.5 - 5 g/dL [facility] ALP enzyme act/vol 69 U/L 25 - 100 U/L [facility] ALT enzyme act/vol 22 U/L 10 - 40 U/L [facility] Comment on above: This test result urban ht be falsely depressed or falsely elevated on samples drawn from patients taking Sulfasalazine and Sulfapyridine. Venipuncture should occur prior to taking either of these drugs. AST enzyme act/vol 19 U/L 10 - 40 U/L [facility] Bilirubin mass conc 0.8 mg/dL 0.3 - 1. 2 mg/dL [facility] Calcium mass conc 9.4 mg/dL 8.4 - 10.2 mg/dL [facility] Chloride molar conc 106 mmol/L 99 - 111 mmol/L [facility] CO2 molar conc 25 mmol/L 23 - 32 mmol/L [facility] Creatinine mass conc 0.98 mg/dL 0.6 - 1 .2 mg/dL [facility] GFR/1.73 sq M predicted among blacks MDRD vol rate/area (S/P/Bld) mL/min/{1.73_m2} ml/min/1.7 3sq.m [facility] GFR/1.73 sq M predicted among non-blacks MDRD vol rate/area (S/P/Bld) mL/min/{1.73_m2} ml/min/1.7 3sq.m [facility] Comment on above: eGFR is an estimated Glomerular Filtration Rate based on the value of the patient's serum creatinine. In outpatients, eGFR should be used as a helpful tool in screening for CKD. In inpatients or patients with acute renal failure, eGFR represents the GFR at the moment of the draw and should be used with caution. Glucose mass conc 108 mg/dL High 70 - 99 mg/dL [facility] Potassium molar conc 4.3 mmol/L 3.5 - 5 .1 mmol/L [facility] Protein mass conc 6.9 g/dL 6.4 - 8.3 g/dL [facility] Sodium molar conc 139 mmol/L 136 - 145 mmol/L [facility] Urea nitrogen mass conc 16 mg/dL 6 - 20 mg/dL [facility] Lipid Panelon 09-18-2016 Cholesterol in HDL mass conc 43 mg/dL 28 - 75 mg/dL [facility] Cholesterol in LDL mass conc 105 mg/dL <130 [facility] Cholesterol in VLDL mass conc 30 mg/dL 5 - 40 mg/dL [facility] Cholesterol mass conc 178 mg/dL 112 - 200 mg/dL [facility] Cholesterol.total/Choles terol in HDL mass ratio 4.1 {ratio} 3.3 - 5.0 [facility] Comment on above: Male Coronary Heart Disease Risk Factor (CHDRF): Average risk= 5.0 1/2 Average risk= 3.4 2 times Average risk= 9.6 Triglyceride mass conc 151 mg/dL High 35 - 150 mg/dL [facility] T4, Freeon 09-18-2016 T4 free mass conc 1.37 ng/dL 0.76 - 1.79 ng/dL [facility] TSHon 09-18-2016 Thyrotropin Qn 0.714 uIU/mL 0.350 - 5.500 [facility] Comment on above: Please note that Flu orescein which is used in angiography has been shown to falsely depress the results of TSH with our current assay. Evidence suggests that patients undergoing fluorescein dye angiography can retain small amounts of fluorescein in the body for up to 48 to 72 hours post-treatment. In the cases of patients with renal insufficiency, retention could be much longer. Samples should be resubmitted post fluorescein clearance to ensure there is no interference with the TSH test result. Vital Signs Date Time Vital Sign Value Performing Clinician Facility 12-07-2022 18:38-0400 Diastolic blood pressure 94 mm[Hg] DO Jasen OrellanaIdooble Work Phone: [facility] 12-07-2022 18:38-0400 Heart rate 95 /min DO Jasen Moka Work Phone: [facility] 12-07-2022 18:38-0400 Respiratory rate 20 /min DO Jasen OrellanaIdooble Work Phone: [facility] 12-07-2022 18:38-0400 SaO2% (BldA) [Mass fraction] 94 % DO Jasen Campbell Work Phone: [facility] 12-07-2022 18:38-0400 Systolic blood pressure 172 mm[Hg] DO Jasen Campbell Work Phone: [facility] 12-07-2022 14:28-0400 Body temperature 98.4 [degF] DO Jasen Campbell Work Phone: [facility] 12-07-2022 13:37-0400 Body height 167.64 cm DO Jasen Campbell Work Phone: [facility] 12-07-2022 13:37-0400 Body weight 113.8 kg DO Jasen Campbell Work Phone: [facility] 12-27-2021 07:16-0500 Body height 165.1 cm Moises Patel MD Work Phone: [facility] 12-27-2021 07:16-0500 Body mass index (BMI) [Ratio] 42.7 kg/m2 Moises Patel MD Work Phone: [facility] [employer] [facility] 12-27-2021 07:16-0500 Body weight 116.39 kg [facility] 12-27-2021 07:16-0500 Diastolic blood pressure 88 mm[Hg] Moises Patel MD Work Phone: [facility] 12-27-2021 07:16-0500 Heart rate 75 /min Moises Patel MD Work Phone: [facility] 12-27-2021 07:16-0500 SaO2% (BldA) [Mass fraction] 95 % Moises Patel MD Work Phone: [email or web address] 12-27-2021 07:16-0500 Systolic blood pressure 132 mm[Hg] Moises Patel MD Work Phone: [facility] 09-15-2020 09:03-0400 Body height 165.1 cm Moises Patel MD Work Phone: [email or web address] 09-15-2020 09:03-0400 Body mass index (BMI) [Ratio] 47.93 kg/m2 Moises Patel MD Work Phone: [facility] 09-15-2020 09:03-0400 Body temperature 97.81 [degF] Moises Patel MD Work Phone: [facility] 09-15-2020 09:03-0400 Body weight 130.64 kg Moises Patel MD Work Phone: [facility] 09-15-2020 09:03-0400 Diastolic blood pressure 92 mm[Hg] Moises Patel MD Work Phone: [facility] 09-15-2020 09:03-0400 Heart rate 80 /min Moises Patel MD Work Phone: [facility] 09-15-2020 09:03-0400 SaO2% (BldA) [Mass fraction] 94 % Moises Patel MD Work Phone: [facility] 09-15-2020 09:03-0400 Systolic blood pressure 138 mm[Hg] Moises Patel MD Work Phone: [email or web address] 06-02-2020 08:21-0400 Body height 167.6 cm Anita Rowland MD Work Phone: [facility] 06-02-2020 08:21-0400 Body mass index (BMI) [Ratio] 46 kg/m2 Anita Rowland MD Work Phone: [facility] 06-02-2020 08:21-0400 Body weight 129.28 kg Anita Rowland MD Work Phone: [facility] 06-02-2020 08:12-0400 Body temperature 98.01 [degF] Anita Rowland MD Work Phone: [facility] 06-02-2020 08:12-0400 Diastolic blood pressure 82 mm[Hg] Anita Rowland MD Work Phone: [facility] 06-02-2020 08:12-0400 Heart rate 74 /min Anita Rowland MD Work Phone: [facility] 06-02-2020 08:12-0400 Respiratory rate 16 /min Anita Rowland MD Work Phone: [facility] 06-02-2020 08:12-0400 SaO2% (BldA) [Mass fraction] 93 % Anita Rowland MD Work Phone: [facility] 06-02-2020 08:12-0400 Systolic blood pressure 117 mm[Hg] Anita Rowland MD Work Phone: [facility] 05-28-2020 16:05-0400 Body height 167.6 cm Anita Rowland MD Work Phone: [facility] 05-28-2020 16:05-0400 Body mass index (BMI) [Ratio] 43.28 kg/m2 Anita Rowland MD Work Phone: [facility] 05-28-2020 16:05-0400 Body weight 121.56 kg Anita Rowland MD Work Phone: [facility] 05-28-2020 16:05-0400 Diastolic blood pressure 88 mm[Hg] Anita Rowland MD Work Phone: [facility] 05-28-2020 16:05-0400 Heart rate 78 /min Anita Rowland MD Work Phone: [facility] 05-28-2020 16:05-0400 SaO2% (BldA) [Mass fraction] 96 % Anita Rowland MD Work Phone: [facility] 05-28-2020 16:05-0400 Systolic blood pressure 149 mm[Hg] Anita Rowland MD Work Phone: [facility] 05-28-2020 07:59-0400 Body height 167.6 cm Anita Rowland MD Work Phone: [facility] 05-28-2020 07:59-0400 Body mass index (BMI) [Ratio] 42.01 kg/m2 Anita Rowland MD Work Phone: [facility] 05-28-2020 07:59-0400 Body weight 118 kg Anita Rowland MD Work Phone: [facility] 05-28-2020 07:59-0400 Diastolic blood pressure 79 mm[Hg] Anita Rowland MD Work Phone: [facility] 05-28-2020 07:59-0400 Heart rate 80 /min Anita Rowland MD Work Phone: [facility] 05-28-2020 07:59-0400 Systolic blood pressure 123 mm[Hg] Anita Rowland MD Work Phone: [facility] 10-16-2019 15:34-0400 BP Diastolic 90 mm[Hg] [facility] 10-16-2019 15:34-0400 BP Systolic 137 mm[Hg] [facility] 10-16-2019 15:34-0400 Pulse (Heart Rate) 102 /min [facility] 10-16-2019 15:34-0400 Pulse Oximetry 100 % [facility] 10-16-2019 12:05-0400 Body Temperature 97.59 [degF] [facility] 10-16-2019 12:05-0400 Respiratory Rate 16 /min [facility] 10-16-2019 01:23-0400 BMI (Body Mass Index) 41.99 kg/m2 [facility] 10-16-2019 01:23-0400 Body weight 118 kg [facility] 10-16-2019 01:23-0400 Height 167.6 cm [facility] 10-15-2019 14:06-0400 BMI (Body Mass Index) 42.79 kg/m2 Anita Rowland [facility] 10-15-2019 14:06-0400 Body weight 120.25 kg Anita Etiennedavid [facility] 10-15-2019 14:06-0400 BP Diastolic 85 mm[Hg] Anita Jaimiedavid [facility] 10-15-2019 14:06-0400 BP Systolic 142 mm[Hg] Anita Jaimiedavid [facility] 10-15-2019 14:06-0400 Height 167.6 cm Anita Eatdavid [facility] 10-15-2019 14:06-0400 Pulse (Heart Rate) 83 /min Anita Rowland [facility] 10-15-2019 14:06-0400 Pulse Oximetry 95 % Anita Rowland [facility] 09-23-2019 13:07-0400 BP Diastolic 104 mm[Hg] [facility] 09-23-2019 13:07-0400 BP Systolic 155 mm[Hg] [facility] 09-23-2019 13:07-0400 Pulse (Heart Rate) 65 /min [facility] 09-23-2019 13:01-0400 Pulse Oximetry 97 % [facility] 09-23-2019 11:28-0400 Respiratory Rate 16 /min [facility] 09-23-2019 08:44-0400 Body Temperature 97.81 [degF] [facility] 09-22-2019 12:02-0400 BMI (Body Mass Index) 43.66 kg/m2 [facility] 09-22-2019 12:02-0400 Body weight 122.7 kg [facility] 09-22-2019 12:02-0400 Height 167.6 cm [facility] 04-03-2019 15:09-0500 BMI (Body Mass Index) 41.97 kg/m2 [facility] 04-03-2019 15:09-0500 Body weight 117.94 kg [facility] 04-03-2019 15:09-0500 BP Diastolic 85 mm[Hg] [facility] 04-03-2019 15:09-0500 BP Systolic 130 mm[Hg] [facility] 04-03-2019 15:09-0500 Height 167.6 cm [facility] 04-03-2019 15:09-0500 Pulse (Heart Rate) 86 /min [facility] 04-03-2019 15:09-0500 Pulse Oximetry 95 % [facility] 03-11-2019 08:19-0500 BP Diastolic 66 mm[Hg] Torie Westbrook [facility] 03-11-2019 08:19-0500 BP Systolic 122 mm[Hg] Torie Abbottluba [facility] 02-26-2019 13:19-0500 BMI (Body Mass Index) 38.82 kg/m2 [facility] 02-26-2019 13:19-0500 Body Temperature 98.4 [degF] [facility] 02-26-2019 13:19-0500 Body weight 109.09 kg [facility] 02-26-2019 13:19-0500 BP Diastolic 88 mm[Hg] [facility] 02-26-2019 13:19-0500 BP Systolic 129 mm[Hg] [facility] 02-26-2019 13:19-0500 Height 167.6 cm [facility] 02-26-2019 13:19-0500 Pulse (Heart Rate) 93 /min [facility] 02-26-2019 13:19-0500 Pulse Oximetry 93 % [facility] 02-26-2019 13:19-0500 Respiratory Rate 16 /min [facility] 02-26-2019 00:00-0500 BP Diastolic 78 mm[Hg] [facility] 02-26-2019 00:00-0500 BP Systolic 122 mm[Hg] [facility] 02-26-2019 00:00-0500 Pulse (Heart Rate) 79 /min [facility] 02-26-2019 00:00-0500 Pulse Oximetry 97 % [facility] 02-26-2019 00:00-0500 Respiratory Rate 18 /min [facility] 02-25-2019 20:32-0500 BMI (Body Mass Index) 38.25 kg/m2 [facility] 02-25-2019 20:32-0500 Body Temperature 98.01 [degF] [facility] 02-25-2019 20:32-0500 Body weight 107.5 kg [facility] 02-25-2019 20:32-0500 Height 167.6 cm [facility] 02-21-2019 09:10-0500 BMI (Body Mass Index) 39.22 kg/m2 [facility] 02-21-2019 09:10-0500 Body Temperature 97.81 [degF] [facility] 02-21-2019 09:10-0500 Body weight 110.22 kg [facility] 02-21-2019 09:10-0500 BP Diastolic 84 mm[Hg] Kristin Walker [facility] 02-21-2019 09:10-0500 BP Systolic 128 mm[Hg] Kristin Walker [facility] 02-21-2019 09:10-0500 Height 167.6 cm [facility] 02-21-2019 09:10-0500 Pulse (Heart Rate) 77 /min [facility] 02-21-2019 09:10-0500 Pulse Oximetry 97 % [facility] 02-13-2019 09:07-0500 BMI (Body Mass Index) 39.38 kg/m2 [facility] 02-13-2019 09:07-0500 Body Temperature 97.5 [degF] [facility] 02-13-2019 09:07-0500 Body weight 110.68 kg [facility] 02-13-2019 09:07-0500 BP Diastolic 78 mm[Hg] [facility] 02-13-2019 09:07-0500 BP Systolic 115 mm[Hg] [facility] 02-13-2019 09:07-0500 Height 167.6 cm [facility] 02-13-2019 09:07-0500 Pulse (Heart Rate) 76 /min [facility] 02-13-2019 09:07-0500 Pulse Oximetry 95 % [facility] 02-06-2019 13:05-0500 BMI (Body Mass Index) 39.59 kg/m2 [facility] 13:05-0500 Body Temperature 98.2 [degF] [facility] 02-06-2019 13:05-0500 Body weight 111.27 kg [facility] 02-06-2019 13:05-0500 BP Diastolic 81 mm[Hg] [facility] 02-06-2019 13:05-0500 BP Systolic 124 mm[Hg] [facility] 13:05-0500 Height 167.6 cm [facility] 02-06-2019 13:05-0500 Pulse (Heart Rate) 97 /min [facility] 02-06-2019 13:05-0500 Pulse Oximetry 95 % Jacob Cam [facility] 02-06-2019 13:05-0500 Respiratory Rate 17 /min Jacob Cam [facility] 02-04-2019 07:45-0500 Body Temperature 98.1 [degF] [facility] 02-04-2019 07:45-0500 BP Diastolic 91 mm[Hg] [facility] 02-04-2019 07:45-0500 BP Systolic 129 mm[Hg] [facility] 02-04-2019 07:45-0500 Pulse (Heart Rate) 90 /min [facility] 02-04-2019 07:45-0500 Pulse Oximetry 94 % [facility] 02-04-2019 07:45-0500 Respiratory Rate 16 /min [facility] 02-04-2019 05:58-0500 BMI (Body Mass Index) 38.8 kg/m2 [facility] 02-04-2019 05:58-0500 Body weight 109.05 kg [facility] 02-02-2019 18:07-0500 Height 167.6 cm [facility] 02-02-2019 12:08-0500 Respiratory rate 0 /min [facility] 01-31-2019 09:19-0500 BMI (Body Mass Index) 40.66 kg/m2 [facility] 01-31-2019 09:19-0500 Body Temperature 98.1 [degF] [facility] 01-31-2019 09:19-0500 Body weight 114.26 kg [facility] 01-31-2019 09:19-0500 BP Diastolic 89 mm[Hg] Kristin Walker [facility] 01-31-2019 09:19-0500 BP Systolic 123 mm[Hg] Kristin Walker [facility] 01-31-2019 09:19-0500 Height 167.6 cm [facility] 01-31-2019 09:19-0500 Pulse (Heart Rate) 93 /min [facility] 01-31-2019 09:19-0500 Pulse Oximetry 94 % [facility] 01-31-2019 09:19-0500 Respiratory Rate 16 /min [facility] 01-29-2019 11:46-0500 Body Temperature 97.81 [degF] [facility] 01-29-2019 11:46-0500 BP Diastolic 78 mm[Hg] [facility] 01-29-2019 11:46-0500 BP Systolic 135 mm[Hg] [facility] 01-29-2019 11:46-0500 Pulse (Heart Rate) 83 /min [facility] 01-29-2019 11:46-0500 Pulse Oximetry 95 % [facility] 01-29-2019 11:46-0500 Respiratory Rate 18 /min [facility] 01-29-2019 05:40-0500 BMI (Body Mass Index) 39.86 kg/m2 [facility] 01-29-2019 05:40-0500 Body weight 112.5 kg [facility] Comment on above: standing scale 01-25-2019 13:34-0500 Respiratory rate 0 /min [facility] 01-24-2019 13:25-0500 Respiratory rate 0 /min [facility] 01-24-2019 11:46-0500 Respiratory rate 12 /min [facility] 01-24-2019 10:43-0500 Respiratory rate 12 /min [facility] 01-24-2019 05:00-0500 Height 168 cm [facility] 01-20-2019 10:22-0500 Respiratory rate 0 /min [facility] 01-04-2019 16:55-0500 BMI (Body Mass Index) 40.35 kg/m2 [facility] 01-04-2019 16:55-0500 Body Temperature 97.9 [degF] [facility] 01-04-2019 16:55-0500 Body weight 113.4 kg [facility] 01-04-2019 16:55-0500 BP Diastolic 88 mm[Hg] [facility] 01-04-2019 16:55-0500 BP Systolic 137 mm[Hg] [facility] 01-04-2019 16:55-0500 Height 167.6 cm [facility] 01-04-2019 16:55-0500 Pulse (Heart Rate) 79 /min [facility] 01-04-2019 16:55-0500 Pulse Oximetry 98 % [facility] 01-04-2019 16:55-0500 Respiratory Rate 14 /min [facility] 12-26-2018 15:50-0500 BMI (Body Mass Index) 40.51 kg/m2 [facility] 12-26-2018 15:50-0500 Body weight 113.85 kg [facility] 12-26-2018 15:50-0500 BP Diastolic 87 mm[Hg] [facility] 12-26-2018 15:50-0500 BP Systolic 125 mm[Hg] [facility] 12-26-2018 15:50-0500 Height 167.6 cm [facility] 12-26-2018 15:50-0500 Pulse (Heart Rate) 98 /min [facility] 12-26-2018 15:50-0500 Pulse Oximetry 97 % [facility] 09-27-2018 22:00-0400 BP Diastolic 96 mm[Hg] [facility] 09-27-2018 22:00-0400 BP Systolic 146 mm[Hg] [facility] 09-27-2018 22:00-0400 Pulse (Heart Rate) 91 /min [facility] 09-27-2018 22:00-0400 Respiratory Rate 26 /min [facility] 09-27-2018 19:30-0400 Pulse Oximetry 95 % [facility] 09-27-2018 19:07-0400 BMI (Body Mass Index) 37.12 kg/m2 [facility] 09-27-2018 19:07-0400 Body Temperature 98.49 [degF] [facility] 09-27-2018 19:07-0400 Body weight 104.33 kg [facility] 09-27-2018 19:07-0400 Height 167.6 cm [facility] 01-07-2018 10:29-0500 BMI (Body Mass Index) 37.93 kg/m2 Patricia Louis [facility] 01-07-2018 10:29-0500 BP Diastolic 80 mm[Hg] Patricia Sruthi [facility] 01-07-2018 10:29-0500 BP Systolic 124 mm[Hg] Patricia Louis [facility] 01-07-2018 10:29-0500 Height 167.6 cm Patricia Louis [facility] 01-07-2018 10:29-0500 Pulse (Heart Rate) 78 /min Patricia Bowersx [facility] 01-07-2018 10:29-0500 Pulse Oximetry 96 % Patricia Bowersx [facility] 01-07-2018 10:29-0500 Weight 106.59 kg Patricia Louis [facility] 09-20-2017 15:31-0400 BMI (Body Mass Index) 36.48 kg/m2 Patricia Bowersx [facility] 09-20-2017 15:31-0400 BP Diastolic 80 mm[Hg] Patricia Sruthi [facility] 09-20-2017 15:31-0400 BP Systolic 145 mm[Hg] Patricia Sruthi [facility] 09-20-2017 15:31-0400 Height 167.6 cm Patricia Bowersx [facility] 09-20-2017 15:31-0400 Pulse (Heart Rate) 72 /min Patricia Louis [facility] 09-20-2017 15:31-0400 Pulse Oximetry 95 % Patricia Louis [facility] 09-20-2017 15:31-0400 Weight 102.51 kg Patricia Louis [facility] 12-08-2016 11:05-0400 BMI (Body Mass Index) 34.33 kg/m2 Bev Tolentino [facility] Work Phone: 12-08-2016 11:05-0400 BP Diastolic 96 mm[Hg] Bev Exten [facility] Work Phone: 12-08-2016 11:05-0400 BP Systolic 143 mm[Hg] Bev Exten [facility] Work Phone: 12-08-2016 11:05-0400 Height 167.6 cm Bev Tolentino [facility] Work Phone: 12-08-2016 11:05-0400 Pulse (Heart Rate) 69 /min B[facility] Exten [facility] Work Phone: 12-08-2016 11:05-0400 Weight 96.48 kg Bev Tolentino [facility] Work Phone: 11-23-2016 10:32-0400 BMI (Body Mass Index) 32.51 kg/m2 Bev Tolentino [facility] Work Phone: 11-23-2016 10:32-0400 BP Diastolic 93 mm[Hg] Bev Tolentino [facility] Work Phone: 11-23-2016 10:32-0400 BP Systolic 121 mm[Hg] Bev Tolentino [facility] Work Phone: 11-23-2016 10:32-0400 Height 170.2 cm Bev Tolentino [facility] Work Phone: 11-23-2016 10:32-0400 Pulse (Heart Rate) 78 /min Bev Tolentino [facility] Work Phone: 11-23-2016 10:32-0400 Weight 94.17 kg Bev Tolentino [facility] Work Phone: 11-02-2016 10:00-0400 BMI (Body Mass Index) 34.07 kg/m2 Bev Tolentino [facility] Work Phone: 11-02-2016 10:00-0400 BP Diastolic 92 mm[Hg] Bev Tolentino [facility] Work Phone: 11-02-2016 10:00-0400 BP Systolic 135 mm[Hg] Bev Tolentino [facility] Work Phone: 11-02-2016 10:00-0400 Height 167.6 cm Bev Tolentino [facility] Work Phone: 11-02-2016 10:00-0400 Pulse (Heart Rate) 63 /min Bev Tolentino [facility] Work Phone: 11-02-2016 10:00-0400 Weight 95.75 kg Bev Tolentino [facility] Work Phone: 10-26-2016 14:00-0400 Body mass index (BMI) [Ratio] Bev Tolentino [facility] 10-26-2016 09:58-0400 BMI (Body Mass Index) 35.72 kg/m2 Bev Tolentino [facility] Work Phone: 10-26-2016 09:58-0400 BP Diastolic 88 mm[Hg] Bev Tolentino [facility] Work Phone: 10-26-2016 09:58-0400 BP Systolic 133 mm[Hg] Bev Tolentino [facility] Work Phone: 10-26-2016 09:58-0400 Height 167.6 cm Bev Tolentino [facility] Work Phone: 10-26-2016 09:58-0400 Pulse (Heart Rate) 68 /min Bev Tolentino [facility] Work Phone: 10-26-2016 09:58-0400 Weight 100.38 kg Bev Tolentino [facility] Work Phone: 09-18-2016 08:56-0400 BMI (Body Mass Index) 33.89 kg/m2 Patricia Louis [facility] Work Phone: 09-18-2016 08:56-0400 BP Diastolic 76 mm[Hg] Patricia Sruthi [facility] Work Phone: 09-18-2016 08:56-0400 BP Systolic 124 mm[Hg] Patricia Louis [facility] Work Phone: 09-18-2016 08:56-0400 Height 167.6 cm Patricia Louis [facility] Work Phone: 09-18-2016 08:56-0400 Pulse (Heart Rate) 68 /min Patricia Sruthi [facility] Work Phone: 09-18-2016 08:56-0400 Pulse Oximetry 94 % Patricia Sruthi [facility] Work Phone: 09-18-2016 08:56-0400 Weight 95.25 kg Patricia Bowersx [facility] Work Phone: Encounters Encounter Date Encounter Type Care Provider Facility Start: 12-07-2022 End: 12-07-2022 Emergency department patient visit Jasen Campbell Facility:[facility] Start: 12-07-2022 End: 12-07-2022 Emergency department patient visit DO Jasen Campbell Work Phone: [facility] Work Phone: Start: 06-20-2022 End: 06-20-2022 Emergency department patient visit MOISES AGUILERA AMANDA [facility] Start: 06-01-2022 Refill Anita Rowland MD Work Phone: [facility] Comment on above: Medication Refill Start: 03-06-2022 Documentation procedure Cassia hernandez MA [facility] Start: 02-14-2022 Refill Tiffany Leo RN [facility] Comment on above: Medication Refill Start: 01-22-2022 Refill Anita Rowland MD Work Phone: [facility] Comment on above: Medication Refill Start: 12-27-2021 [facility] Start: 12-27-2021 End: 12-27-2021 Office outpatient visit 25 minutes Moises Patel MD Work Phone: [facility] Comment on above: Inadequately control led diabetes mellitus (Primary Dx); Insomnia, unspecified type Start: 11-06-2021 End: 11-09-2021 Evaluation and management of inpatient [facility] Start: 10-30-2021 End: 10-30-2021 Emergency department patient visit MOISES AGUILERA [facility] Start: 10-23-2021 Refill Anita Rowland MD Work Phone: [facility] Comment on above: Medication Refill Start: 10-21-2021 Refill Anita Rowland MD Work Phone: [facility] Comment on above: Medication Refill Start: 10-19-2021 Refill Anita Rowland MD Work Phone: [facility] Comment on above: Medication Refill Start: 10-11-2021 Refill Anita Rowland MD Work Phone: [facility] Comment on above: Medication Refill Start: 07-06-2021 Refill Tiffany Leo RN [facility] Comment on above: Medication Refill Start: 05-23-2021 Refill Anita Rowland MD Work Phone: [facility] Comment on above: Medication Refill Start: 03-28-2021 ambulatory MELINDA TERRELL FERNANDEZ [facility] Start: 01-17-2021 Refill Tiffany Leo RN [facility] Comment on above: Medication Refill Start: 09-15-2020 End: 09-15-2020 Office outpatient visit 25 minutes Moises Patel MD Work Phone: [facility] Comment on above: Chronic obstructive pulmonary disease with acute exacerbation (Primary Dx); COPD with acute exacerbation Start: 08-19-2020 End: 08-19-2020 Refill Tiffany Leo RN [facility] Comment on above: Medication Refill Start: 08-06-2020 End: 08-06-2020 Refill Anita Rowland MD Work Phone: [facility] Comment on above: Medication Refill Start: 08-06-2020 End: 08-06-2020 Subsequent hospital visit by physician Anita Rowland MD Work Phone: [facility] Comment on above: Arrived Start: 06-10-2020 End: 06-10-2020 ambulatory MOISES PATEL [facility] Start: 06-10-2020 End: 06-10-2020 Clinical Support Cassandra Stewart RN [facility] Comment on above: Other specified comp lications of surgical and medical care, not elsewhere classified, initial encounter (Primary Dx) Arrived Medication Refill Start: 06-02-2020 End: 06-02-2020 Subsequent hospital visit by physician Anita Rowland MD Work Phone: [facility] Start: 05-28-2020 End: 06-01-2020 ambulatory ANITA ROWLAND [facility] Start: 05-28-2020 End: 05-28-2020 Office outpatient visit 40 minutes Anita Rowland MD Work Phone: [facility] Comment on above: Essential hypertensi on (Primary Dx); Mixed hyperlipidemia; Coronary artery disease involving [place] coronary artery of [place] heart without angina pectoris; PAD (peripheral artery disease) (HCC); Centrilobular emphysema (HCC); IASC (obstructive sleep apnea); Nicotine abuse; Pre-procedure lab exam; Abnormal stress test Start: 05-28-2020 End: 05-28-2020 Patient encounter status Anita Rowland MD Work Phone: [facility] Start: 05-28-2020 End: 05-28-2020 Subsequent hospital visit by physician Anita Rowland MD Work Phone: [facility] Comment on above: Arrived Start: 05-23-2020 End: 05-23-2020 Patient encounter procedure MOISES [facility] Start: 05-18-2020 End: 05-18-2020 Orders Only Tiffany Leo [facility] Comment on above: Pre-procedure lab ex am (Primary Dx) Start: 04-21-2020 End: 04-21-2020 Orders Only Alicja Nieves Work Phone: [facility] Start: 04-13-2020 End: 04-13-2020 Refill Tiffany Leo [facility] Comment on above: Medication Refill Start: 04-12-2020 End: 04-12-2020 Refill Rubi Pratt [facility] Comment on above: Medication Refill Start: 12-05-2019 End: 12-05-2019 Patient encounter procedure MOISES AGUILERA [facility] Start: 10-17-2019 End: 10-17-2019 Documentation procedure Rubi Pratt [facility] Start: 10-16-2019 End: 10-16-2019 Subsequent hospital visit by physician Anita Rowland Work Phone: [facility] Comment on above: TIA (transient ische gustavo attack) Start: 10-15-2019 End: 10-16-2019 Emergency department patient visit Andreas Barfield Work Phone: [facility] Comment on above: Near syncope (Primar y Dx) Start: 10-15-2019 End: 10-15-2019 Office outpatient visit 25 minutes Anita Rowland Work Phone: [facility] Comment on above: TIA (transient ische gustavo attack) (Primary Dx); Essential hypertension; Mixed hyperlipidemia; Coronary artery disease involving [place] coronary artery of [place] heart without angina pectoris; Centrilobular emphysema (HCC); ISAC on CPAP; Nicotine abuse Start: 09-22-2019 Patient encounter procedure MOISES AGUILERA [facility] Start: 09-22-2019 End: 09-23-2019 Emergency department patient visit Ana Ruizjanki Weaver Work Phone: [facility] Comment on above: Acute CVA (cerebrova scular accident) (HCC) (Primary Dx) Start: 04-03-2019 End: 04-03-2019 Office outpatient visit 15 minutes Carlo Mercedes Work Phone: [facility] Comment on above: Medication managemen t (Primary Dx); Coronary artery disease, angina presence unspecified, unspecified vessel or lesion type, unspecified whether [place] or transplanted heart Start: 03-17-2019 End: 03-17-2019 Patient encounter procedure Carlo Mercedes Work Phone: [facility] Comment on above: S/P CABG (coronary a rtery bypass graft) (Primary Dx) Start: 03-13-2019 End: 03-13-2019 Subsequent hospital visit by physician Carlo Mercedes Work Phone: [facility] Comment on above: Arrived Start: 03-11-2019 End: 03-11-2019 Patient encounter procedure Kristin Walker Work Phone: [facility] Comment on above: S/P CABG (coronary a rtery bypass graft) (Primary Dx) Start: 03-10-2019 Refill Kristin lopez PA-C Work Phone: [facility] Comment on above: Medication Refill Start: 03-05-2019 End: 03-05-2019 Documentation procedure Kristinkyler Walker Work Phone: [facility] Start: 02-26-2019 End: 02-26-2019 Postop follow up visit related to original px Kristin Walkergabrielle Walker Work Phone: [facility] Comment on above: S/P CABG (coronary a rtery bypass graft) (Primary Dx) Start: 02-25-2019 End: 02-26-2019 Emergency department patient visit Fausto Alejandro Work Phone: [facility] Comment on above: Pleuritic chest pain (Primary Dx) Start: 02-21-2019 End: 02-21-2019 Postop follow up visit related to original px Kristin Machuca Alphonse Work Phone: [facility] Comment on above: S/P CABG (coronary a rtery bypass graft) (Primary Dx) Start: 02-21-2019 End: 02-21-2019 Subsequent hospital visit by physician Jacob Cam Work Phone: [facility] Comment on above: S/P CABG (coronary a rtery bypass graft) Start: 02-18-2019 End: 02-18-2019 Documentation procedure Kristin Byrnes Work Phone: [facility] Start: 02-13-2019 End: 02-13-2019 Postop follow up visit related to original px Kristin Walkergabrielle Walker Work Phone: [facility] Comment on above: S/P CABG (coronary a rtery bypass graft) (Primary Dx) Start: 02-13-2019 End: 02-13-2019 Subsequent hospital visit by physician Kristin Byrnes Work Phone: [facility] Comment on above: S/P CABG x 1 Start: 02-06-2019 End: 02-06-2019 Postop follow up visit related to original px Jacob Cam Work Phone: [facility] Comment on above: S/P CABG x 1 (Primar y Dx) Start: 02-06-2019 End: 02-06-2019 Subsequent hospital visit by physician Kristin Walker Work Phone: [facility] Comment on above: S/P CABG (coronary a rtery bypass graft) Start: 02-02-2019 End: 02-04-2019 Subsequent hospital visit by physician Arvin Gilliam Work Phone: [facility] Comment on above: S/P CABG x 1 Start: 02-02-2019 End: 02-02-2019 Subsequent hospital visit by physician Kristin Walker Work Phone: [facility] Comment on above: Chest pain, unspecif ied type Start: 01-31-2019 End: 01-31-2019 Documentation procedure Kristin Walker Work Phone: [facility] Start: 01-31-2019 End: 01-31-2019 Postop follow up visit related to original px Kristin Walker Work Phone: [facility] Comment on above: S/P CABG (coronary a rtery bypass graft) (Primary Dx) Start: 01-31-2019 End: 01-31-2019 Subsequent hospital visit by physician Kristin Byrnes Work Phone: [facility] Comment on above: S/P CABG (coronary a rtery bypass graft) Start: 01-21-2019 End: 01-21-2019 Evaluation and management of inpatient Kristin Byrnes Work Phone: [facility] Start: 01-17-2019 End: 01-29-2019 Evaluation and management of inpatient Ana Ruizjanki Weaver Work Phone: [facility] Comment on above: Chest pain, atypical (Primary Dx); Type 2 diabetes mellitus without complication, without long-term current use of insulin (HCC); Coronary artery disease, angina presence unspecified, unspecified vessel or lesion type, unspecified whether [place] or transplanted heart; Type 2 diabetes mellitus with other circulatory complications (HCC); S/P CABG x 1 Start: 01-04-2019 End: 01-04-2019 Emergency department patient visit Brian Cordoba Work Phone: [facility] Comment on above: COPD exacerbation (H CC) (Primary Dx) Start: 12-26-2018 End: 12-26-2018 Office outpatient visit 25 minutes Maykel Whitney Work Phone: [facility] Comment on above: Coronary artery dise ase involving [place] coronary artery of [place] heart with angina pectoris (HCC) (Primary Dx); Acute on chronic diastolic heart failure (HCC) Start: 12-25-2018 End: 12-25-2018 Subsequent hospital visit by physician Patricia Louis Work Phone: [facility] Comment on above: Chronic systolic con gestive heart failure (HCC) Start: 12-18-2018 End: 12-18-2018 Subsequent hospital visit by physician Patricia Louis Work Phone: [facility] Comment on above: Chronic systolic con gestive heart failure (HCC) Start: 12-10-2018 End: 12-10-2018 Subsequent hospital visit by physician Patricia Louis Work Phone: [facility] Comment on above: Chronic systolic hea rt failure (HCC); Hypertension, unspecified type; Coronary artery disease involving [place] coronary artery of [place] heart without angina pectoris Start: 11-26-2018 Refill Patricia Morales ax STAFFING COORDINATOR Work Phone: [facility] Comment on above: Medication Refill Start: 09-27-2018 End: 09-27-2018 Emergency department patient visit Jesúscam Erik Work Phone: [facility] Emergency Department Comment on above: Acute exacerbation o f chronic obstructive pulmonary disease (COPD) (HCC) (Primary Dx) Start: 01-21-2018 End: 01-21-2018 Patient encounter procedure Other Other [facility] Start: 01-11-2018 End: 01-11-2018 Patient encounter procedure Sophia Jarad [facility] Comment on above: Other (ROSA Attempt.) Start: 01-08-2018 End: 01-09-2018 Patient encounter procedure Yareli Platayuliana Facility:[facility] Start: 01-07-2018 Patient encounter procedure Patricia L. Sruthi Facility:[facility] Start: 01-07-2018 End: 01-07-2018 Office outpatient visit 25 minutes Patricia Rodríguez Sruthi Work Phone: [facility] Comment on above: Chronic systolic hea rt failure (HCC) (Primary Dx); Essential hypertension; Coronary artery disease involving [place] coronary artery of [place] heart without angina pectoris Start: 09-23-2017 End: 09-25-2017 Patient encounter procedure Sofie Daigle Facility:[facility] Start: 09-20-2017 End: 09-20-2017 Office outpatient visit 25 minutes Patricia L. Sruthi Work Phone: [facility] Start: 09-20-2017 Refill Patricia Westbrooku ax STAFFING COORDINATOR Work Phone: [facility] Comment on above: Medication Refill Start: 09-11-2017 End: 09-11-2017 Emergency department patient visit Samira Monzon Facility:[facility] Start: 06-11-2017 Refill Izabel Earl [facility] Start: 03-08-2017 End: 03-08-2017 Ambulatory Fitz Mg Work Phone: [facility] Start: 01-18-2017 End: 01-18-2017 Ambulatory Carola Lyle Work Phone: [facility] Start: 12-08-2016 Office outpatient vi sit 15 minutes Bev Tolentino Work Phone: [facility] Start: 11-23-2016 Office outpatient vi sit 15 minutes Bev Thomas Exten Work Phone: [facility] Start: 11-02-2016 End: 11-02-2016 Office outpatient visit 15 minutes Bev Thomas Rajan Work Phone: [facility] Comment on above: Leukocytosis, unspec ified type (Primary Dx) Start: 10-26-2016 End: 10-26-2016 Patient encounter procedure Bev Thomas Rajan Work Phone: [facility] Start: 10-26-2016 Office/outpatient visit, est, level 4 Bev Thomas Rajan Work Phone: [facility] Start: 10-20-2016 End: 10-20-2016 Ambulatory Moises Patel Work Phone: [facility] Start: 10-20-2016 End: 10-20-2016 Ambulatory Moises Patel Work Phone: [facility] Start: 10-12-2016 End: 10-12-2016 Patient encounter procedure Moises Patel Work Phone: [facility] Start: 10-12-2016 End: 10-12-2016 Patient encounter procedure Moises Patel Work Phone: [facility] Start: 09-18-2016 End: 09-18-2016 Patient encounter procedure Patricia Anne Louis Work Phone: [facility] Start: 09-18-2016 Office/outpatient visit, est, level 3 Patricia Bowersx Work Phone: [facility] Start: 06-21-2016 Refill Patricia Westbrooku ax [employer] Work Phone: [facility] Comment on above: Medication Refill Start: 03-30-2016 Refill Patricia Westbrooku ax STAFFING COORDINATOR Work Phone: [facility] Comment on above: Medication Refill Start: 10-08-2015 Refill Patricia Westbrooku ax STAFFING COORDINATOR Work Phone: [facility] Comment on above: Medication Refill Procedures Date Procedure Procedure Detail Performing Clinician Start: 12-07-2022 CT of left shoulder DO Jasen Campbell Work Phone: Start: 12-07-2022 Antibody screen Jose Raul Campbell Comment on above: Result Comment: PERF ORMED BY: [place] [address] PATHOLOGIST TEST PILOT TIBURCIO POWERS M.D. Start: 12-07-2022 Plain X-ray of bilat eral femurs DO Jasen Campbell Work Phone: Start: 12-07-2022 Plain X-ray of left shoulder DO Jasen Campbell Work Phone: Start: 12-07-2022 Computed tomography of abdomen and pelvis with contrast DO Jasen Campbell Work Phone: Start: 12-07-2022 CT cervical spine wi thout contrast DO Jasen Campbell Work Phone: Start: 12-07-2022 CT of head without contrast DO Jasen Campbell Work Phone: Start: 12-07-2022 CT of thorax with contrast DO Jasen Campbell Work Phone: Start: 12-07-2022 Plain X-ray of right tibia and right fibula DO Jasen Campbell Work Phone: Start: 08-06-2020 Dup-scan uxtr art/ar tl bpgs uni/lmtd study Anita Rowland MD Work Phone: Start: 06-10-2020 Dup-scan uxtr art/ar tl bpgs uni/lmtd study Anita Rowland MD Work Phone: Start: 06-02-2020 Cardiac catheterization Anita Rowland MD Work Phone: Start: 06-02-2020 Ecg routine ecg w/le ast 12 lds trcg only w/o i&r Anita Rowland MD Work Phone: Start: 05-28-2020 Myocardial spect mul tiple studies Anita Rowland MD Work Phone: Start: 10-16-2019 Electrocardiogram Provi malinda Not In System Start: 10-16-2019 Troponin measurement Gr kaylan Rowland Work Phone: Start: 10-16-2019 Contrast echocardiography Nallely Goodwin Work Phone: Start: 10-16-2019 Complete blood count with white cell differential, automated Nallely Goodwin Work Phone: Start: 10-16-2019 Complete blood count with white cell differential, manual Nallely Goodwin Work Phone: Start: 10-16-2019 Comprehensive metabo lic 2000 panel - Serum or Plasma Nallely Goodwin Work Phone: Start: 10-16-2019 Magnesium [Mass/volu me] in Serum or Plasma Nallely Goodwin Work Phone: Start: 10-16-2019 Red blood cell morphology Nallely Goodwin Work Phone: Start: 10-16-2019 12 lead ECG Nallely Simpson Work Phone: Start: 10-16-2019 Glucose [Mass/volume ] in Blood Roby Talon Martinez Work Phone: Start: 10-16-2019 Urinalysis Work Phone: Start: 10-15-2019 COVID-19, MOLECULAR Snider ra Work Phone: Start: 10-15-2019 Radiologic exam ches t single view Work Phone: Start: 10-15-2019 CT of head without contrast Work Phone: Start: 10-15-2019 End: 10-15-2019 Glucose [Mass/volume] in Blood Work Phone: Start: 10-15-2019 Basic metabolic 2000 panel - Serum or Plasma Work Phone: Start: 10-15-2019 Complete blood count with white cell differential, automated Work Phone: Start: 10-15-2019 Complete blood count with white cell differential, manual Work Phone: Start: 10-15-2019 Ethanol [Mass/volume ] in Serum or Plasma Work Phone: Start: 10-15-2019 Hepatic function 200 0 panel - Serum or Plasma Work Phone: Start: 10-15-2019 INR in Platelet poor plasma by Coagulation assay Work Phone: Start: 10-15-2019 Natriuretic peptide. B prohormone N-Terminal [Mass/volume] in Serum or Plasma Work Phone: Start: 10-15-2019 Troponin measurement La rachel Work Phone: Start: 10-15-2019 12 lead ECG Triage [facility] Start: 09-23-2019 Glucose [Mass/volume ] in Blood Neo Mcneil Work Phone: Start: 09-23-2019 Glucose [Mass/volume ] in Blood Neo Mcneil Work Phone: Start: 09-23-2019 Electrocardiogram Provi malinda Not In System Start: 09-23-2019 Mri brain brain stem w/o w/contrast material Ginny Sol Rushing Work Phone: Start: 09-23-2019 Glucose [Mass/volume ] in Blood Neo Mcneil Work Phone: Start: 09-23-2019 Glucose [Mass/volume ] in Blood Neo Mcneil Work Phone: Start: 09-22-2019 Glucose [Mass/volume ] in Blood Neo Mcneil Work Phone: Start: 09-22-2019 Glucose [Mass/volume ] in Blood Neo Mcneil Work Phone: Start: 09-22-2019 Glucose [Mass/volume ] in Blood Neo Mcneil Work Phone: Start: 09-22-2019 CT angiography of he ad and neck Ana Weaver Work Phone: Start: 09-22-2019 COVID-19, MOLECULAR Antoine Weaver Work Phone: Start: 09-22-2019 Radiologic exam ches t single view Ana Weaver Work Phone: Start: 09-22-2019 End: 09-22-2019 Glucose [Mass/volume] in Blood Ana Weaver Work Phone: Start: 09-22-2019 Basic metabolic 1998 panel - Serum or Plasma Ana Weaver Work Phone: Start: 09-22-2019 Complete blood count with white cell differential, automated Ana Weaver Work Phone: Start: 09-22-2019 Complete blood count with white cell differential, manual Ana Weaver Work Phone: Start: 09-22-2019 UGALDE TOP Ana Weaver Work Phone: Start: 09-22-2019 Hemoglobin A1c/Hemoglobin.total in Blood Good Macias Work Phone: Start: 09-22-2019 LIGHT BLUE TOP Ana Weaver Work Phone: Start: 09-22-2019 LIGHT GREEN TOP Ana Weaver Work Phone: Start: 09-22-2019 Lipid 1996 panel - S alanis or Plasma Ginny Rushing Work Phone: Start: 09-22-2019 RAINBOW DRAW Ana Weaver Work Phone: Start: 09-22-2019 Troponin measurement Titus Weaver Work Phone: Start: 09-22-2019 CT of entire head Ana Weaver Work Phone: Start: 09-22-2019 12 lead ECG Ana Weaver Work Phone: Start: 03-17-2019 MONITORED CARDIAC RE HAB SESSION Jazmin Trevinobowski Start: 03-13-2019 Cv strs tst xers&/or rx cont ecg trcg only Carlo Mercedes Work Phone: Start: 02-25-2019 CT angiography of pu lmonary artery Fausto Upton Crouse Work Phone: Start: 02-25-2019 Standard chest X-ray Mi ashleigh Upton Crouse Work Phone: Start: 02-25-2019 UGALDE TOP Fausto Ladd n Jelm Work Phone: Start: 02-25-2019 LIGHT GREEN TOP Fausto cosby Crouse Work Phone: Start: 02-25-2019 RAINBOW DRAW Fausto Ladd n Jelm Work Phone: Start: 02-25-2019 Basic metabolic 2000 panel - Serum or Plasma Fausto Laddn Javon Work Phone: Start: 02-25-2019 Complete blood count with white cell differential, automated Fausto Upton Crouse Work Phone: Start: 02-25-2019 Complete blood count with white cell differential, manual Fausto Laddn Javon Work Phone: Start: 02-25-2019 INR in Platelet poor plasma by Coagulation assay Fausto Laddn Javon Work Phone: Start: 02-25-2019 Natriuretic peptide. B prohormone N-Terminal [Mass/volume] in Serum or Plasma Fausto Laddn Jelm Work Phone: Start: 02-25-2019 Troponin measurement Mi ashleigh Laddn Javon Work Phone: Start: 02-25-2019 12 lead ECG Fausto Ladd n Javon Work Phone: Start: 02-21-2019 Standard chest X-ray Br orion Cam Work Phone: Start: 02-13-2019 Standard chest X-ray Nasim Byrnes Work Phone: Start: 02-06-2019 Standard chest X-ray Nasim Walker Work Phone: Start: 02-04-2019 Glucose [Mass/volume ] in Blood Anita Rowland Work Phone: Start: 02-04-2019 Radiologic exam ches t single view Kristin Walker Work Phone: Start: 02-04-2019 Basic metabolic 2000 panel - Serum or Plasma Kristin Walker Work Phone: Start: 02-04-2019 Complete blood count (hemogram) panel - Blood by Automated count Kristin Walker Work Phone: Start: 02-03-2019 Glucose [Mass/volume ] in Blood Arvin Gilliam Work Phone: Start: 02-03-2019 Radiologic exam ches t single view Kristin Walker Work Phone: Start: 02-03-2019 CV IR LEFT THORACENTESIS Gilmer Zelaya Work Phone: Start: 02-03-2019 Glucose [Mass/volume ] in Blood Arvin Gilliam Work Phone: Start: 02-03-2019 Radiologic exam ches t single view Kristin Walker Work Phone: Start: 02-03-2019 Basic metabolic 2000 panel - Serum or Plasma Kristin Walker Work Phone: Start: 02-03-2019 Complete blood count (hemogram) panel - Blood by Automated count Kristin Walker Work Phone: Start: 02-02-2019 Glucose [Mass/volume ] in Blood Arvin Gilliam Work Phone: Start: 02-02-2019 CT angiography of pu lmonary artery Kristin Walker Work Phone: Start: 02-02-2019 Evaluation of arteri al blood gas studies Arvin NellieHerberth Gilliam Work Phone: Start: 02-02-2019 OBTAIN ARTERIAL BLOO D GASES AND PERFORM Arvin Gilliam Work Phone: Start: 02-02-2019 Complete blood count (hemogram) panel - Blood by Automated count Kristin Gayle Walker Work Phone: Start: 02-02-2019 Standard chest X-ray Nasim Walkergabrielle Walker Work Phone: Start: 01-31-2019 Standard chest X-ray Nasim Abraham Fitz Work Phone: Start: 01-29-2019 End: 10-13-2019 History of coronary artery bypass grafting S/P CABG x 1 Anita Rowland MD Work Phone: Start: 01-29-2019 Glucose [Mass/volume ] in Blood Nova Aura Jim Work Phone: Start: 01-29-2019 12 lead ECG Kristin Chao gricelda Walker Work Phone: Start: 01-29-2019 Glucose [Mass/volume ] in Blood Nova Aura Jim Work Phone: Start: 01-29-2019 Basic metabolic 2000 panel - Serum or Plasma Kristin Walkergabrielle Walker Work Phone: Start: 01-29-2019 Complete blood count (hemogram) panel - Blood by Automated count Kristin Gayle Walker Work Phone: Start: 01-29-2019 Magnesium [Mass/volu me] in Serum or Plasma Kristin Gayle Walker Work Phone: Start: 01-29-2019 Troponin measurement Nasim Walkergabrielle Walker Work Phone: Start: 01-29-2019 Radiologic exam ches t single view Kristin Gayle Walker Work Phone: Start: 01-28-2019 Glucose [Mass/volume ] in Blood Nova Aura Jim Work Phone: Start: 01-28-2019 Glucose [Mass/volume ] in Blood Nova Jim Work Phone: Start: 01-28-2019 Glucose [Mass/volume ] in Blood Nova Jim Work Phone: Start: 01-28-2019 Glucose [Mass/volume ] in Blood Nova Jim Work Phone: Start: 01-28-2019 Radiologic exam ches t single view Kristin Machuca Alphonse Work Phone: Start: 01-28-2019 Basic metabolic 2000 panel - Serum or Plasma Kristin Walkergabrielle Walker Work Phone: Start: 01-28-2019 Complete blood count (hemogram) panel - Blood by Automated count Kristin Walkergabrielle Walker Work Phone: Start: 01-28-2019 Glucose [Mass/volume ] in Blood Nova Jim Work Phone: Start: 01-28-2019 Magnesium [Mass/volu me] in Serum or Plasma Kristin Machuca Alphonse Work Phone: Start: 01-27-2019 Glucose [Mass/volume ] in Blood Nova Jim Work Phone: Start: 01-27-2019 Amylase measurement, body fluid Kristin Walkergabrielle Walker Work Phone: Start: 01-27-2019 Hepatic function 200 0 panel - Serum or Plasma Kristin Machuca Alphonse Work Phone: Start: 01-27-2019 Lipase [Enzymatic activity/volume] in Serum or Plasma Kristin Walkergabrielle Walker Work Phone: Start: 01-27-2019 Troponin measurement Nasim Machuca Alphonse Work Phone: Start: 01-27-2019 Glucose [Mass/volume ] in Blood Nova Jim Work Phone: Start: 01-27-2019 Radiography of [id number]-opuuxo-lkinrnt Kristin Walker Work Phone: Start: 01-27-2019 Echography of chest, real time with image documentation Kristin Walker Work Phone: Start: 01-27-2019 Basic metabolic 2000 panel - Serum or Plasma Kristin Walker Work Phone: Start: 01-27-2019 Radiologic exam ches t single view Kristin Walker Work Phone: Start: 01-27-2019 Complete blood count (hemogram) panel - Blood by Automated count Kristin Walker Work Phone: Start: 01-27-2019 Magnesium [Mass/volu me] in Serum or Plasma Kristin Walker Work Phone: Start: 01-27-2019 Glucose [Mass/volume ] in Blood Ahmed Mohamed Ayed Diandra Work Phone: Start: 01-26-2019 Glucose [Mass/volume ] in Blood Ahmed Mohamed Ayed Diandra Work Phone: Start: 01-26-2019 Glucose [Mass/volume ] in Blood Ahmed Mohamed Ayed Diandra Work Phone: Start: 01-26-2019 Glucose [Mass/volume ] in Blood Ahmed Mohamed Ayed Diandra Work Phone: Start: 01-26-2019 Radiologic exam ches t single view Jacob Cam Work Phone: Start: 01-26-2019 Radiologic exam ches t single view Kristin Walker Work Phone: Start: 01-26-2019 Glucose [Mass/volume ] in Blood Ahmed Mohamed Ayed Diandra Work Phone: Start: 01-26-2019 Basic metabolic 2000 panel - Serum or Plasma Kristin Walker Work Phone: Start: 01-26-2019 Complete blood count (hemogram) panel - Blood by Automated count Kristin Walker Work Phone: Start: 01-26-2019 Magnesium [Mass/volu me] in Serum or Plasma Kristin Walker Work Phone: Start: 01-26-2019 Glucose [Mass/volume ] in Blood Ahmed Thomasamed Ayed Diandra Work Phone: Start: 01-25-2019 Glucose [Mass/volume ] in Blood Ahmed Mohamed Ayed Diandra Work Phone: Start: 01-25-2019 Glucose [Mass/volume ] in Blood Ahmed Mohamed Ayed Diandra Work Phone: Start: 01-25-2019 Glucose [Mass/volume ] in Blood Ahmed Mohamed Ayed Diandra Work Phone: Start: 01-25-2019 Evaluation of arteri al blood gas studies [facility] Work Phone: Start: 01-25-2019 OBTAIN ARTERIAL BLOO D GASES AND PERFORM Jacob Cam Work Phone: Start: 01-25-2019 12 lead ECG Jacob Cam Work Phone: Start: 01-25-2019 Glucose [Mass/volume ] in Blood Ahmed Thomasamed Ayed Diandra Work Phone: Start: 01-25-2019 Glucose [Mass/volume ] in Blood Ahmed Mohamed Ayed Diandra Work Phone: Start: 01-25-2019 Glucose [Mass/volume ] in Blood Ahmed Mohamed Ayed Diandra Work Phone: Start: 01-25-2019 Glucose [Mass/volume ] in Blood Ahmed Mohamed Ayed Diandra Work Phone: Start: 01-25-2019 Radiologic exam ches t single view Kristin Walker Work Phone: Start: 01-25-2019 Basic metabolic 2000 panel - Serum or Plasma Kristin Walker Work Phone: Start: 01-25-2019 Complete blood count (hemogram) panel - Blood by Automated count Kristin Walker Work Phone: Start: 01-25-2019 Magnesium [Mass/volu me] in Serum or Plasma Kristin Gayle Walker Work Phone: Start: 01-25-2019 Glucose [Mass/volume ] in Blood Chidimed Thomasamed Ayed Diandra Work Phone: Start: 01-25-2019 Glucose [Mass/volume ] in Blood Ahmed Mohamed Ayed Diandra Work Phone: Start: 01-24-2019 Glucose [Mass/volume ] in Blood Ahmed Mohamed Ayed Diandra Work Phone: Start: 01-24-2019 Glucose [Mass/volume ] in Blood Ahmed Mohamed Ayed Diandra Work Phone: Start: 01-24-2019 Glucose [Mass/volume ] in Blood Ahmed Mohamed Ayed Diandra Work Phone: Start: 01-24-2019 Glucose [Mass/volume ] in Blood Ahmed Mohamed Ayed Diandra Work Phone: Start: 01-24-2019 End: 01-24-2019 Glucose [Mass/volume] in Blood Chidimed Mohamed Ayed Diandra Work Phone: Start: 01-24-2019 Basic metabolic 2000 panel - Serum or Plasma Neo Mcneil Work Phone: Start: 01-24-2019 Calcium.ionized [Mas s/volume] in Serum or Plasma Kristinkyler Walker Work Phone: Start: 01-24-2019 Complete blood count with white cell differential, automated Kristin Walker Work Phone: Start: 01-24-2019 Complete blood count with white cell differential, manual Kristin Walker Work Phone: Start: 01-24-2019 INR in Platelet poor plasma by Coagulation assay Kristinkyler Walker Work Phone: Start: 01-24-2019 Magnesium [Mass/volu me] in Serum or Plasma Kristin Walker Work Phone: Start: 01-24-2019 End: 01-24-2019 Glucose [Mass/volume] in Blood Nova Barrera Diandra Work Phone: Start: 01-24-2019 Glucose [Mass/volume ] in Blood Nova Barrera Diandra Work Phone: Start: 01-24-2019 Evaluation of arteri al blood gas studies Generic [facility] Work Phone: Start: 01-24-2019 End: 01-24-2019 Glucose [Mass/volume] in Blood Nova Barrera Diandra Work Phone: Start: 01-24-2019 Evaluation of arteri al blood gas studies Generic [facility] Work Phone: Start: 01-24-2019 Glucose [Mass/volume ] in Blood jax Barrera Diandra Work Phone: Start: 01-24-2019 Calcium.ionized [Mas s/volume] in Serum or Plasma Kristin Abraham Changers Work Phone: Start: 01-24-2019 aPTT in Blood by Coa gulation assay Kristin Abraham Changers Work Phone: Start: 01-24-2019 Basic metabolic 2000 panel - Serum or Plasma Kristin Abraham Changers Work Phone: Start: 01-24-2019 Complete blood count with white cell differential, automated Kristin Abraham Changers Work Phone: Start: 01-24-2019 Complete blood count with white cell differential, manual Kristin Abraham Changers Work Phone: Start: 01-24-2019 Fibrinogen [Mass/vol ume] in Platelet poor plasma by Coagulation assay Kristin Abraham Changers Work Phone: Start: 01-24-2019 INR in Platelet poor plasma by Coagulation assay Kristin Abraham Changers Work Phone: Start: 01-24-2019 Magnesium [Mass/volu me] in Serum or Plasma Kristinkyler Byrnes Work Phone: Start: 01-24-2019 Evaluation of arteri al blood gas studies Generic [facility] Work Phone: Start: 01-24-2019 End: 01-24-2019 Radiologic exam chest single view Kristin Byrnes Work Phone: Start: 01-24-2019 OBTAIN ARTERIAL BLOO D GASES AND PERFORM Kristinkyler Walker Work Phone: Start: 01-24-2019 Activated partial thromboplastin time ratio Neo Juice Saavedrao Work Phone: Start: 01-24-2019 aPTT in Blood by Coa gulation assay Neo Suarezberto Work Phone: Start: 01-24-2019 Complete blood count (hemogram) panel - Blood by Automated count Neo Bose Tarun Work Phone: Start: 01-24-2019 Fibrinogen [Mass/vol ume] in Platelet poor plasma by Coagulation assay Neo Bose Tarun Work Phone: Start: 01-24-2019 INR in Platelet poor plasma by Coagulation assay Neo Bose Tarun Work Phone: Start: 01-24-2019 Calcium ionized [address] Ayed Diandra Work Phone: Start: 01-24-2019 Bacteria identified in Unspecified specimen by Aerobe culture Neo Mcneil Work Phone: Start: 01-24-2019 End: 01-24-2019 Calcium ionized Chidimed Mohamed Ayed Diandra Work Phone: Start: 01-24-2019 End: 01-24-2019 CORONARY ARTERY BYPASS GRAFT OFF PUMP Noe Mcneil Work Phone: Start: 01-24-2019 Packed RBC preparation Neo Mcneil Work Phone: Start: 01-24-2019 Radiologic exam ches t single view Kristin Byrnes Work Phone: Start: 01-24-2019 aPTT in Blood by Coa gulation assay Maykel Whitney Work Phone: Start: 01-24-2019 Basic metabolic 2000 panel - Serum or Plasma Kristin Abraham Titley Work Phone: Start: 01-24-2019 Blood type and Indir ect antibody screen panel - Blood Kristin Abraham Titley Work Phone: Start: 01-24-2019 Complete blood count with white cell differential, automated Kristin Abraham Titley Work Phone: Start: 01-24-2019 Complete blood count with white cell differential, manual Kristin Abraham Titley Work Phone: Start: 01-23-2019 Glucose [Mass/volume ] in Blood Nova Braxtoned Diandra Work Phone: Start: 01-23-2019 Glucose [Mass/volume ] in Blood Nova Chavarria Ayed Diandra Work Phone: Start: 01-23-2019 Glucose [Mass/volume ] in Blood Nova Chavarria Ayed Diandra Work Phone: Start: 01-23-2019 aPTT in Blood by Coa gulation assay Maykel Whitney Work Phone: Start: 01-23-2019 Basic metabolic 2000 panel - Serum or Plasma Kristin Abraham Titley Work Phone: Start: 01-23-2019 Complete blood count with white cell differential, automated Kristin Hernandezy Work Phone: Start: 01-23-2019 Complete blood count with white cell differential, manual Kristin Abraham Titley Work Phone: Start: 01-22-2019 Glucose [Mass/volume ] in Blood Nova Braxtoned Diandra Work Phone: Start: 01-22-2019 aPTT in Blood by Coa gulation assay Carlo Mercedes Work Phone: Start: 01-22-2019 Glucose [Mass/volume ] in Blood Nova Chavarria Ayed Diandra Work Phone: Start: 01-22-2019 APTT - reference Maykel Whitney Work Phone: Start: 01-22-2019 Glucose [Mass/volume ] in Blood Nova Jim Work Phone: Start: 01-22-2019 Drugs of abuse urine screening test Kristin Jarad Changers Work Phone: Start: 01-22-2019 Urinalysis Kristin Alannah marquis Titley Work Phone: Start: 01-22-2019 APTT - reference Maykel Whitney Work Phone: Start: 01-22-2019 Basic metabolic 2000 panel - Serum or Plasma Kristin Lee [employer] Work Phone: Start: 01-22-2019 Complete blood count with white cell differential, automated Kristin Abraham [employer] Work Phone: Start: 01-22-2019 Complete blood count with white cell differential, manual Kristin Lee [employer] Work Phone: Start: 01-21-2019 Glucose [Mass/volume ] in Blood Nova Jim Work Phone: Start: 01-21-2019 APTT - reference Mirna Rodriguez Work Phone: Start: 01-21-2019 Glucose [Mass/volume ] in Blood Nova Jim Work Phone: Start: 01-21-2019 Contrast echocardiography Kristin Jarad [employer] Work Phone: Start: 01-21-2019 Glucose [Mass/volume ] in Blood Nova Jim Work Phone: Start: 01-21-2019 Bacteria identified in Unspecified specimen by Aerobe culture Kristin Lee [employer] Work Phone: Start: 01-21-2019 Standard chest X-ray Nasim Abraham Titley Work Phone: Start: 01-21-2019 Doppler ultrasonogra phy of artery of lower limb Kristin Abraham Changers Work Phone: Start: 01-21-2019 COMPLETE PFT Kristin Grijalva Changers Work Phone: Start: 01-21-2019 Basic metabolic 2000 panel - Serum or Plasma Kristin Abraham BigBad Phone: Start: 01-21-2019 Complete blood count with white cell differential, automated Kristin Abraham Changers Work Phone: Start: 01-21-2019 Complete blood count with white cell differential, manual Kristin Abraham Changers Work Phone: Start: 01-20-2019 Carotid artery doppl er assessment Kristin Abraham Changers Work Phone: Start: 01-20-2019 Electrocardiogram Provi malinda Not In System Start: 01-20-2019 Cul bact xcpt urine blood/stool aerobic isol Kristin Abraham Changers Work Phone: Start: 01-20-2019 Evaluation of arteri al blood gas studies Generic [facility] Work Phone: Start: 01-20-2019 Amylase measurement, body fluid Kristin Abraham Changers Work Phone: Start: 01-20-2019 Blood type and Indir ect antibody screen panel - Blood Kristin Abraham BigBad Phone: Start: 01-20-2019 Hemoglobin A1c/Hemoglobin.total in Blood Kristin Abraham Changers Work Phone: Start: 01-20-2019 Hepatic function 200 0 panel - Serum or Plasma Kristin Abraham BigBad Phone: Start: 01-20-2019 INR in Platelet poor plasma by Coagulation assay Kristin Abraham BigBad Phone: Start: 01-20-2019 Prealbumin [Mass/vol ume] in Serum or Plasma Kristin Abraham BigBad Phone: Start: 01-20-2019 Thyrotropin [Units/v olume] in Serum or Plasma by Detection limit <= 0.005 mIU/L Kristin Byrnes Work Phone: Start: 01-20-2019 Thyroxine (T4) free [Mass/volume] in Serum or Plasma Kristin Byrnes Work Phone: Start: 01-20-2019 OBTAIN ARTERIAL BLOO D GASES AND PERFORM Kristin Byrnes Work Phone: Start: 01-20-2019 Cardiac catheterization Columba Rodriguez Work Phone: Start: 01-20-2019 aPTT in Blood by Coa gulation assay Jacinda Navarro Work Phone: Start: 01-20-2019 Basic metabolic 2000 panel - Serum or Plasma Vickie Quinteros Work Phone: Start: 01-20-2019 Blood group typing Debi Mercedes Work Phone: Start: 01-20-2019 Complete blood count with white cell differential, automated Vickie Quinteros Work Phone: Start: 01-20-2019 Complete blood count with white cell differential, manual Vickie Quinteros Work Phone: Start: 01-19-2019 Complete blood count (hemogram) panel - Blood by Automated count Verónicavirginia Anant Work Phone: Start: 01-19-2019 APTT - reference Danny Navarro Work Phone: Start: 01-19-2019 aPTT in Blood by Coa gulation assay Maykel Whitney Work Phone: Start: 01-19-2019 Basic metabolic 2000 panel - Serum or Plasma Vickie Quinteros Work Phone: Start: 01-19-2019 Complete blood count with white cell differential, automated Vickie Quinteros Work Phone: Start: 01-19-2019 Complete blood count with white cell differential, manual Vickie Quinteros Work Phone: Start: 01-19-2019 aPTT in Blood by Coa gulation assay Maykel Whitney Work Phone: Start: 01-18-2019 APTT - reference Danny Navarro Work Phone: Start: 01-18-2019 APTT - reference Meron Roper Work Phone: Start: 01-18-2019 APTT - reference Maykel Whitney Work Phone: Start: 01-17-2019 Complete blood count (hemogram) panel - Blood by Automated count Meron Roper Work Phone: Start: 01-17-2019 D-dimer assay, quantitative Meron Roper Work Phone: Start: 01-17-2019 Troponin measurement Josie Roper Work Phone: Start: 01-17-2019 Troponin measurement Titus Weaver Work Phone: Start: 01-17-2019 Urinalysis Ana Rhoadesandrew guerda Weaver Work Phone: Start: 01-17-2019 Radiologic exam ches t single view Ana Weaver Work Phone: Start: 01-17-2019 Basic metabolic 2000 panel - Serum or Plasma Ana Weaver Work Phone: Start: 01-17-2019 Complete blood count with white cell differential, automated Ana Rhoadesja Keren Work Phone: Start: 01-17-2019 Complete blood count with white cell differential, manual Ana Weaver Work Phone: Start: 01-17-2019 D-dimer assay, quantitative Ana Weaver Work Phone: Start: 01-17-2019 Hepatic function 200 0 panel - Serum or Plasma Ana Weaver Work Phone: Start: 01-17-2019 INR in Platelet poor plasma by Coagulation assay Ana Weaver Work Phone: Start: 01-17-2019 Lactate [Moles/volum e] in Serum or Plasma Ana Weaver Work Phone: Start: 01-17-2019 Lipase [Enzymatic activity/volume] in Serum or Plasma Ana Weaver Work Phone: Start: 01-17-2019 Natriuretic peptide. B prohormone N-Terminal [Mass/volume] in Serum or Plasma Ana Weaver Work Phone: Start: 01-17-2019 Troponin measurement Titus Weaver Work Phone: Start: 01-17-2019 12 lead ECG Ana Weaver Work Phone: Start: 01-04-2019 Fibrin dgradj produc ts d-dimer quantitative Brian Cordoba Work Phone: Start: 01-04-2019 Assay of troponin quantitative Brian Cordoba Work Phone: Start: 01-04-2019 Natriuretic peptide Thea Cordoba Work Phone: Start: 01-04-2019 Standard chest X-ray Claudia Cordoba Work Phone: Start: 01-04-2019 Basic metabolic pane l calcium ionized Brian Cordoba Work Phone: Start: 01-04-2019 Albumin serum plasma /whole blood Brian Luod Adalid Work Phone: Start: 01-04-2019 Blood count complete auto&auto difrntl wbc Brian Luod Adalid Work Phone: Start: 01-04-2019 12 lead ECG Brian Cordoba Work Phone: Start: 12-25-2018 Cardiac mri w/wo con trast & further seq Patricia Louis Work Phone: Start: 12-10-2018 Contrast echocardiography Patricia Louis Work Phone: Start: 09-28-2018 Electrocardiogram Provi malinda Not In System Start: 09-28-2018 Assay of troponin quantitative [facility] Start: 09-28-2018 Natriuretic peptide [facility] Start: 09-27-2018 Assay of troponin quantitative [facility] Start: 09-27-2018 Fibrin dgradj produc ts d-dimer quantitative [facility] Start: 09-27-2018 Complete blood count with white cell differential, automated Nathanael Valencia Work Phone: Start: 09-27-2018 Complete blood count with white cell differential, manual [employer] Valencia Work Phone: Start: 09-27-2018 Radiologic exam ches t single view Nathanael Valencia Work Phone: Start: 09-27-2018 Basic metabolic pane l calcium total [facility] Start: 09-27-2018 POC CBC AND DIFFERENTIAL Jesúscam Valencia Work Phone: Start: 09-27-2018 End: 09-28-2018 12 lead ECG Jesúscam Valencia Work Phone: Start: 05-27-2015 Colonoscopy Tiffany ovalle RN Plan of Treatment Date Care Activity Detail Author Start: 08-08-2036 Pneumococcal Vaccine: Ped or At-Risk (2 of 2 - PPSV23) Pneumococcal Vaccine: Ped or At-Risk (2 of 2 - PPSV23) [facility] Start: 05-26-2025 Screening for malignant neoplasm of colon [facility] Start: 11-07-2023 Prostate specific antigen measurement PSA Level [facility] Start: 10-13-2022 Influenza vaccination Sequential Influenza Vaccine (Season Ended) [facility] Start: 03-29-2022 End: 03-29-2022 Patient encounter procedure 03/29/2022 Office Visit Family Medicine Moises Patel MD [address] [place] [id number] [facility] Start: 02-05-2022 Hemoglobin A1c measurement A1C [facility] Start: 10-31-2021 End: 10-31-2021 Patient encounter procedure 10/31/2021 Office Visit Cardiology Anita Rowland MD [address] [place] [address] [facility] Start: 10-13-2021 Influenza vaccination [facility] Start: 08-08-2021 Administration of herpes zoster vaccine Zoster Vaccines (1 of 2) [facility] Start: 08-08-2021 Prostate specific antigen measurement PROSTATE CANCER SCREENING DISCUSSION [facility] Start: 08-08-2021 Screening for malignant neoplasm of colon Flexible sigmoidoscopy [facility] Start: 08-08-2021 Zoster vaccine hzv live for subcutaneous use ZOSTER (SHINGLES) VACCINE (1 of 2) [facility] Start: 10-13-2020 Influenza vaccination [facility] Start: 10-01-2020 COVID-19 VACCINE (3 - Booster for Pfizer series) COVID-19 VACCINE (3 - Booster for Pfizer series) [facility] Start: 09-24-2020 End: 09-24-2020 Patient encounter procedure 09/24/2020 Office Visit Pulmonary Disease Valerie Carreno, AGILE JAVA DEVELOPER-HEALTH DIAGNOSTICS TEACHER [address] [address] [facility] Pulmonary Disease [facility] Start: 08-06-2020 COVID-19 Vaccine (2 - Pfizer 2-dose series) COVID-19 Vaccine (2 - Pfizer 2-dose series) [facility] Start: 08-06-2020 COVID-19 Vaccine (2 - Pfizer series) COVID-19 Vaccine (2 - Pfizer series) [facility] Start: 07-12-2020 End: 08-10-2021 Ultrasound duplex arterial arm left Ultrasound duplex arterial arm left Vascular Ultrasound Routine Other specified complications of surgical and medical care, not elsewhere classified, initial encounter Expected: 07/12/2020, Expires: 08/10/2021 [facility] Comment on above: Expected: 07/12/2020, Expires: Start: 07-09-2020 End: 07-09-2020 Patient encounter procedure 07/09/2020 Appointment Cardiology Anita Rowland MD [address] [place] [address] [phone] [facility] Start: 06-02-2020 Subsequent hospital visit by physician 06/02/2020 Hospital Encounter Cardiology Anita Rowland MD [address] [place] [address] [phone] [facility] Start: 05-28-2020 End: 05-28-2020 Appointment [facility] Start: 03-24-2020 HbA1c (Bld) [Mass fraction] A1C [facility] Start: 03-24-2020 Hemoglobin A1c measurement A1C [facility] Start: 02-26-2020 Screening for malignant neoplasm of lung Low-dose CT Lung Cancer Screen [facility] Start: 12-08-2019 End: 12-08-2019 Office Visit 12/08/2019 Office Visit Cardiology Anita Rowland MD [address] [place] [address] [phone] [facility] Start: 11-07-2019 End: 11-07-2019 Appointment 11/07/2019 Appointment Cardiology Anita Rowland MD [address] [place] [address] [phone] [facility] Start: 11-05-2019 End: 11-05-2019 Office Visit 11/05/2019 Office Visit Neurology Ginny Rushing CNP [address] [address] [phone] [facility] Start: 10-16-2019 End: 10-16-2019 Appointment 10/16/2019 Appointment Cardiology Anita Rowland MD [address] [place] [address] [phone] [facility] Start: 10-14-2019 Influenza vaccination Sequential Influenza Vaccine (#1) [facility] Start: 10-14-2019 Influenza vaccination given Sequential Influenza Vaccine (#1) [facility] Start: 09-30-2019 End: 09-30-2019 Office Visit 09/30/2019 Office Visit Cardiology Anita Rowland MD [address] [place] [address] [phone] [facility] Start: 07-31-2019 End: 07-31-2019 Appointment [facility] Start: 07-22-2019 HbA1c (Bld) [Mass fraction] A1C [facility] Start: 06-25-2019 End: 06-25-2019 Treatment 06/25/2019 Treatment Cardiac Carlo Berry MD [address] [place] [address] [phone] [facility] Start: 06-23-2019 End: 06-23-2019 Treatment 06/23/2019 Treatment Cardiac Carlo Berry MD [address] [place] [address] [phone] [facility] Start: 06-19-2019 End: 06-19-2019 Treatment 06/19/2019 Treatment Cardiac Carlo Berry MD [address] [place] [address] [phone] [facility] Start: 06-18-2019 End: 06-18-2019 Treatment 06/18/2019 Treatment Cardiac Carlo Berry MD [address] [place] [address] [phone] [facility] Start: 06-16-2019 End: 06-16-2019 Treatment 06/16/2019 Treatment Cardiac Carlo Berry MD [address] [place] [address] [phone] [facility] Start: 06-12-2019 End: 06-12-2019 Treatment 06/12/2019 Treatment Cardiac Carlo Berry MD [address] [place], [place] [address] [address] [phone] [facility] Start: 06-11-2019 End: 06-11-2019 Treatment 06/11/2019 Treatment Cardiac Rehabilitation Carlo Mercedes MD [address] [place] [address] [facility] Start: 06-09-2019 End: 06-09-2019 Treatment 06/09/2019 Treatment Cardiac Rehabilitation Carlo Mercedes MD [address] [place] [address] [phone] [facility] Start: 06-05-2019 End: 06-05-2019 Treatment [facility] Start: 06-04-2019 End: 06-04-2019 Treatment [facility] Start: 06-02-2019 End: 06-02-2019 Treatment [facility] Start: 05-29-2019 End: 05-29-2019 Treatment [facility] Start: 05-28-2019 End: 05-28-2019 Treatment [facility] Start: 05-26-2019 End: 05-26-2019 Treatment [facility] Start: 05-22-2019 End: 05-22-2019 Treatment [facility] Start: 05-21-2019 End: 05-21-2019 Treatment [facility] Start: 05-19-2019 End: 05-19-2019 Treatment [facility] Start: 05-15-2019 End: 05-15-2019 Treatment [facility] Start: 05-14-2019 End: 05-14-2019 Treatment [facility] Start: 05-12-2019 End: 05-12-2019 Treatment [facility] Start: 05-08-2019 End: 05-08-2019 Treatment [facility] Start: 05-07-2019 End: 05-07-2019 Treatment [facility] Start: 05-05-2019 End: 05-05-2019 Treatment [facility] Start: 05-01-2019 End: 05-01-2019 Treatment [facility] Start: 04-30-2019 End: 04-30-2019 Treatment [facility] Start: 04-28-2019 End: 04-28-2019 Treatment [facility] Start: 04-24-2019 End: 04-24-2019 Treatment [facility] Start: 04-23-2019 End: 04-23-2019 Treatment [facility] Start: 04-21-2019 End: 04-21-2019 Treatment [facility] Start: 04-17-2019 End: 04-17-2019 Treatment [facility] Start: 04-16-2019 End: 04-16-2019 Treatment [facility] Start: 04-14-2019 End: 04-14-2019 Treatment [facility] Start: 04-10-2019 End: 04-03-2020 Basic metabolic 2000 panel Basic Metabolic Panel Lab Routine Medication management Expected: 04/10/2019, Expires: 04/03/2020 [facility] Comment on above: Expected: 04/10/2019, Expires: Start: 04-10-2019 End: 04-10-2019 Treatment [facility] Start: 04-09-2019 End: 04-09-2019 Treatment [facility] Start: 04-07-2019 End: 04-07-2019 Treatment [facility] Start: 04-03-2019 End: 04-03-2019 Treatment 04/03/2019 Treatment Cardiac Rehabilitation Carlo Mercedes MD [address] [place] [address] [phone] [facility], Generic [facility] Start: 04-02-2019 End: 04-02-2019 Treatment [facility] Start: 03-31-2019 End: 03-31-2019 Treatment 03/31/2019 Treatment Cardiac Rehabilitation Carlo Mercedes MD [address] [place] [address] [phone] [facility], Generic [facility] Start: 03-27-2019 End: 03-27-2019 Treatment 03/27/2019 Treatment Cardiac Rehabilitation Carlo Mercedes MD [address] [place] [address] [phone] [facility], [facility] Start: 03-26-2019 End: 03-26-2019 Treatment 03/26/2019 Treatment Cardiac Rehabilitation Carlo Mercedes MD [address] [place] [address] [phone] [facility] Start: 03-24-2019 End: 03-24-2019 Treatment 03/24/2019 Treatment Cardiac Rehabilitation Carlo Mercedes MD [address] [place] [address] [phone] [facility] Start: 03-20-2019 End: 03-20-2019 Treatment 03/20/2019 Treatment Cardiac Carlo Berry MD [address] [place] [address] [phone] [facility] Start: 03-19-2019 End: 03-19-2019 Treatment 03/19/2019 Treatment Cardiac Rehabilitation Carlo Mercedes MD [address] [place] [address] [phone] [facility] Start: 03-17-2019 End: 03-17-2019 Treatment 03/17/2019 Treatment Cardiac Carlo Berry MD [address] [place] [address] [phone] [facility] Start: 03-13-2019 End: 03-13-2019 Appointment 03/13/2019 Appointment Cardiology Carlo Mercedes MD [address] [place] [address] [phone] [facility] Start: 03-11-2019 End: 03-11-2019 Office Visit 03/11/2019 Office Visit Cardiac Rehabilitation Kristin Walker PA-C [address] [place] [address] [phone] [facility] Start: 03-07-2019 End: 03-07-2019 Office Visit 03/07/2019 Office Visit Cardiology Mansi Guevara CNP [address] [place] [address] [phone] [facility] Start: 03-06-2019 End: 03-06-2019 Office Visit 03/06/2019 Office Visit Cardiology Carlo Mercedes MD [address] [place] [address] [phone] [facility] Start: 03-04-2019 End: 03-04-2019 Office Visit 03/04/2019 Office Visit Endocrinology Gianna Castle PA-C [address] [address] [phone] [facility] Start: 02-28-2019 End: 02-28-2019 Office Visit [facility] Start: 02-13-2019 End: 02-13-2019 Follow-Up 02/13/2019 Follow-Up Cardiology [facility] Start: 02-07-2019 End: 02-07-2019 Follow-Up 02/07/2019 Follow-Up Cardiology [facility] Start: 01-31-2019 End: 01-31-2019 Follow-Up 01/31/2019 Follow-Up Cardiology [facility] Start: 01-24-2019 End: 01-24-2019 Surgery 01/24/2019 Surgery Neo Mcneil MD [address] [place] [address] [phone] CABG W/SPARKS OFF PUMP [facility] Comment on above: CABG W/SPARKS OFF PUMP Start: 01-22-2019 End: 01-22-2019 Office Visit 01/22/2019 Office Visit Cardiology Patricia Louis, CHRISTIAN [address] [place] [address] [phone] [facility] Start: 01-02-2019 End: 12-27-2019 Basic metabolic 2000 panel Basic metabolic panel Lab Routine Coronary artery disease involving [place] coronary artery of [place] heart with angina pectoris (HCC) Acute on chronic diastolic heart failure (HCC) Expected: 01/02/2019, Expires: 12/27/2019 [facility] Comment on above: Expected: 01/02/2019, Expires: 0 Start: 01-01-2019 End: 01-01-2019 Office Visit 01/01/2019 Office Visit Cardiology Patricia Louis, STAFFING COORDINATOR [address] [place] [address] [phone] [facility] Start: 12-26-2018 End: 12-26-2018 Office Visit 12/26/2018 Office Visit Cardiology Maykel Whitney MD [address] [place] [address] [phone] [facility] Start: 12-25-2018 End: 12-25-2018 Appointment 12/25/2018 Appointment Radiology Patricia Louis, STAFFING COORDINATOR [address] [place] [address] [phone] [facility] Start: 12-24-2018 End: 12-24-2018 Office Visit 12/24/2018 Office Visit Cardiology Maykel Whitney MD [address] [place] [address] [phone] [facility] Start: 10-13-2018 Influenza vaccination given SEQUENTIAL INFLUENZA VACCINE (#1) [facility] Start: 01-21-2018 End: 01-21-2018 Ambulatory [facility] Start: 12-21-2017 End: 12-21-2017 Ambulatory 12/21/2017 Office Visit Cardiology Patricia Louis, STAFFING COORDINATOR [address] [facility] [place] [address]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 (A) House Dust Mites/D.F.,Class 0.58 (A) ALTERNARIA ALTERNATA <0.10 Mouse Urine Protein, IgE <0.10 ALLERGEN, DOG DANDER, IGE 1.59 (A) ALLERGEN PROFILE, MOLD Result Value Ref Range CLASS DESCRIPTION Comment CLADOSPORIUM HERBARUM IGE <0.10 Aspergillus fumigatus IgE <0.10 IGE MUCOR RACEMOSUS <0.10 IGE EVA ALBICANS <0.10 IGE AUREOBASIDIUM PULLUL <0.10 Allergen, Fungi/Mold, Phoma betae IgE <0.10 IGE EPICOCCUM PURPURASCE <0.10 PENICILLIUM CHRYSOGEN <0.10 ALTERNARIA ALTERNATA <0.10 Fusarium Proliferatum <0.10 STEMPHYLIUM HERBARUM <0.10 SETOMELANOMMA ROSTRAT <0.10 IMMUNOGLOBULIN IGE Result Value Ref Range IMMUNOGLOBULIN IGE 133 CBC, EDIF, PLATELET Result Value Ref Range WBC (WHITE BLOOD COUNT) 10.5 3.6 - 11.0 10*3/uL RBC 5.14 4.0 - 6.1 10*6/uL HEMOGLOBIN (HGB) 14.5 14.0 - 18.0 G/DL HEMATOCRIT (HCT) 42.3 42.0 - 52.0 % MEAN CELL VOLUME 82.4 80.0 - 100.0 FL Mean Cell HGB 28.2 26.0 - 35.0 PG MEAN CELL HGB CONCENTRATION 34.2 27.0 - 37.0 G/DL RBC DISTRIBUTION 15.4 (H) 11.5 - 14.5 % PLATELET COUNT 255 130.0 - 400.0 10*3/uL MEAN PLATELET VOLUME 8.8 7.4 - 11.0 FL DIFFERENTIAL TYPE AUTO DIFF % NEUTROPHILS 53.2 37.0 - 75.0 % LYMPHOCYTE 28.8 20.0 - 55.0 % MONOCYTE % 8.8 0.0 - 10.0 % EOSINOPHIL % 8.3 0.0 - 11.0 % BASOPHIL % 0.9 0.0 - 2.0 % Absolute Neutrophil Count 5.6 1.4 - 6.5 10*3/uL LYMPHOCYTES, ABSOLUTE 3.00 1.2 - 3.4 10*3/uL MONOCYTES, ABSOLUTE 0.9 (H) 0.0 - 0.7 10*3/uL ABSOLUTE EOSINOPHIL COUNT 0.90 (H) 0.0 - 0.7 10*3/uL ABSOLUTE BASOPHIL COUNT 0.1 0.0 - 0.2 10*3/uL VITAMIN D (25-HYDROXY,TOTAL) Result Value Ref Range VITAMIN D 25 HYDROXY 20.3 NG/ML ALPHA 1 ANTITRYPSIN Result Value Ref Range [id number] 144 No images are attached to the encounter. Assessment and Plan: Fernando Helton is a 51 y.o. male that presents for follow up for Call the office for any questions or concerns. I did have discussion that if any medications are not covered or is not able to get the medications to call the office and let us know so other alternative/arrangements can be made. Fernando was seen today for diabetes and insomnia. Diagnoses and all orders for this visit: Inadequately controlled diabetes mellitus - Continuous Blood Gluc Tiller Worker (FreeStyle Glenna 2 [place] Systm) Device; 1 Application by Unknown route daily. - Continuous Blood Gluc Sensor (FreeStyle Glenna 2 Sensor Systm) Misc; 1 Application by Unknown route daily. Insomnia, unspecified type - traZODone 100 MG tablet; Take 1 tablet by mouth every evening at 6 PM. Moises Patel MD documented in this encounter [facility] 10-24-2021 Telephone encount er Note Pt was last seen by Dr. Rowland in 06/02, with an upcoming ov in 11/03 Refill appropriate until ov [facility] 10-24-2021 Miscellaneous Notes Formattin g of this note might be different from the original. Pt was last seen by Dr. Rowland in 06/02, with an upcoming ov in 11/03 Refill appropriate until ov documented in this encounter [facility] 10-19-2021 Telephone encount er Note Pt was last seen by Dr. Rowland in 05/2020, w/ upcoming ov in 10/2021. Refill appropriate until next ov. [facility] 10-19-2021 Miscellaneous Notes Formattin g of this note might be different from the original. Pt was last seen by Dr. Rowland in 05/2020, w/ upcoming ov in 10/2021. Refill appropriate until next ov. documented in this encounter [facility] 10-11-2021 Telephone encount er Note Patient was last seen 05/2020 and has a follow up scheduled 10/31/2021. Refill appropriate until next ov [facility] 10-11-2021 Miscellaneous Notes Formattin g of this note might be different from the original. Patient was last seen 05/2020 and has a follow up scheduled 10/31/2021. Refill appropriate until next ov documented in this encounter [facility] 07-06-2021 Telephone encount er Note Refill needed to local pharmacy. Last OV 06/10/20. Follow up pending. [facility] 07-06-2021 Miscellaneous Notes Formattin g of this note might be different from the original. Refill needed to local pharmacy. Last OV 06/10/20. Follow up pending. documented in this encounter [facility] 05-23-2021 Telephone encount er Note Scheduling to contact for ov Last seen 05/28/20 w/ Dr. Rowland Recall 6 mo [facility] 05-23-2021 Miscellaneous Notes Formattin g of this note might be different from the original. Scheduling to contact for ov Last seen 05/28/20 w/ Dr. Rowland Recall 6 mo documented in this encounter [facility] 01-17-2021 Miscellaneous Notes Refill needed to local pharmacy. Last OV with Dr. Rowland 05/28/20. documented in this encounter [facility] 09-15-2020 History of Presen t illness Narrative Follow Up Visit Fernando Helton [id number] 1970 09/15/2020 Chief Complaint Patient presents with Cough Pt c/o productive (whitish-yellow) and body aches since Sunday, worsening. Pt denies any fever, no loss of taste, but has loss of sense of smell History of Present Illness: Fernando Helton is a 50 y.o. male presenting for follow up of Cough This is a new problem. The current episode started in the past 7 days. The problem occurs constantly. The cough is productive of sputum. Associated symptoms include nasal congestion, shortness of breath and wheezing. Pertinent negatives include no chest pain, chills, ear pain, fever, sore throat, sweats or weight loss. History: Past Medical History: Diagnosis Date Arm pain, left Arthritis Chicken pox COPD (chronic obstructive pulmonary disease) Essential hypertension, benign Head pain Hyperlipidemia PA (myocardial infarction) 01/2012, 04/2012 x2 Neck pain ISAC on CPAP 07/06/2020 Past Surgical History: Procedure Laterality Date OTHER SURGICAL 2019 open heart surgery LUNG SURGERY 2019 drainage of fluid on lung ARTHROSCOPY SHOULDER W/ BICEPS TENODESIS Left 05/08/2013 Laterality: Left; Surgeon: Louise Waldron MD; Location: [facility] MAIN OR SHOULDER SURGERY Left 11/22/11 SINUS SURGERY 2009 SHOULDER SURGERY Right 1998 APPENDECTOMY Family History Problem Relation Age of Onset Diabetes Mother Myocardial Infarction Mother Myocardial Infarction Father Stroke Maternal Uncle Aneurysm Neg Hx Bleeding or Clotting Problems Neg Hx Cancer- Other Neg Hx Heart Failure Neg Hx Dysrhythmia Neg Hx Heart Disease - Other Neg Hx Hypertension Neg Hx Social History Socioeconomic History Marital status: Spouse name: Not on file Number of children: Not on file Years of education: Not on file Highest education level: Not on file Occupational History Not on file Tobacco Use Smoking status: Current Some Day Smoker Packs/day: 0.10 Years: 20.00 Pack years: 2.00 Types: Cigarettes Smokeless tobacco: Never Used Vaping Use Vaping Use: Never used Substance and Sexual Activity Alcohol use: Not Currently Comment: rarely Drug use: Not Currently Types: Marijuana Sexual activity: Yes Partners: Female Other Topics Concern Not on file Social History Narrative Not on file Social Determinants of Health Financial Resource Strain: Difficulty of Paying Living Expenses: Food Insecurity: Worried About Running Out of Food in the Last Year: Ran Out of Food in the Last Year: Transportation Needs: Lack of Transportation (Medical): Lack of Transportation (Non-Medical): Physical Activity: Days of Exercise per Week: Minutes of Exercise per Session: Stress: Feeling of Stress : Social Connections: Frequency of Communication with Friends and Family: Frequency of Social Gatherings with Friends and Family: Attends [employer] Services: Active Member of Clubs or Organizations: Attends Club or Organization Meetings: Marital Status: Intimate Partner Violence: Fear of Current or Ex-Partner: Emotionally Abused: Physically Abused: Sexually Abused: Social History Tobacco Use Smoking Status Current Some Day Smoker Packs/day: 0.10 Years: 20.00 Pack years: 2.00 Types: Cigarettes Smokeless Tobacco Never Used Social History Substance and Sexual Activity Alcohol Use Not Currently Comment: rarely Social History Substance and Sexual Activity Drug Use Not Currently Types: Marijuana Allergies: Patient has no known allergies. Home Medications: Current Outpatient Medications: albuterol 108 (90 Base) MCG/ACT Aero Soln inhaler, Inhale 2 puffs every 6 hours as needed for Shortness of Breath or Wheezing., Disp: 1 Inhaler, Rfl: 11 atorvastatin 40 MG tablet, Take 1 tablet by mouth daily., Disp: 90 tablet, Rfl: 5 DISABILITY PLACARD, Duration 1 year; dx shortness of breath, Disp: 1 Each, Rfl: 0 Buszqkiqxlv-Zydlrnkko-Umjfre (Trelegy Ellipta) 200-62.5-25 MCG/INH Aerosol Powder, breath activated, Inhale 1 puff daily., Disp: 1 Each, Rfl: 5 GLUCOSE TEST STRIPS PRESCRIPTION, by Instructed route., Disp: , Rfl: ipratropium-albuterol 0.5-2.5 (3) MG/3ML nebulizer solution, Take 3 mL by nebulization every 4 hours as needed for Shortness of Breath., Disp: 360 mL, Rfl: 3 Lancets 28G Misc, by Unknown route., Disp: , Rfl: Metoprolol Tartrate 75 MG Tab, Take 75 mg by mouth 2 times daily., Disp: , Rfl: omeprazole [address] capsule, Take 1 capsule by mouth daily., Disp: 90 capsule, Rfl: 3 Rivaroxaban 20 MG tablet, Take 20 mg by mouth daily., Disp: , Rfl: rOPINIRole 2 MG tablet, Take 1 tablet by mouth daily., Disp: 90 tablet, Rfl: 5 traZODone 50 MG tablet, Take 1 tablet by mouth every evening at 6 PM., Disp: 30 tablet, Rfl: 11 benzonatate 200 MG capsule, Take 1 capsule by mouth 3 times daily as needed for Cough., Disp: 90 capsule, Rfl: 3 guaifenesin-codeine (Cheratussin AC) 100-10 MG/5ML Syrup syrup, Take 10 mL by mouth every 4 hours as needed for Cold Symptoms for up to 10 days., Disp: 118 mL, Rfl: 0 levoFLOXacin 500 MG tablet, Take 1 tablet by mouth daily for 7 days., Disp: 7 tablet, Rfl: 0 predniSONE 10 MG tablet, 4 tabs x 3 days, 3 tabs x 3 days, 2 tabs x 3 Days, then 1 tab x 3 days, Disp: 30 tablet, Rfl: 0 ROS: Review of Systems Constitutional: Negative for chills, fever and weight loss. HENT: Negative for ear pain and sore throat. Respiratory: Positive for cough, shortness of breath and wheezing. Cardiovascular: Negative for chest pain. Physical Examination: Vital Signs: BP (!) 138/92 (BP Location: Left arm, BP Position: Sitting) Pulse 80 Temp 97.8 F (36.6 C) (Temporal) Ht 1.651 m (5' 5 ) Wt 130.6 kg (288 lb) SpO2 94% BMI 47.93 kg/m Smoking Status Current Some Day Smoker Physical Exam Constitutional: Appearance: Normal appearance. Pulmonary: Effort: Pulmonary effort is normal. Breath sounds: Wheezing present. Neurological: Mental Status: He is alert. Psychiatric: Mood and Affect: Mood normal. Behavior: Behavior normal. Procedure none Laboratory and Additional Data Reviewed: Results for orders placed or performed in visit on 07/06/20 MINI-PANEL ALLERGEN PROFILE Result Value Ref Range CLASS DESCRIPTION Comment [place] IGE 0.23 (A) CAT DANDER, CONV, CLASS 2.35 (A) House Dust Mites/D.P., Class 1.04 (A) [place], IGE <0.10 [place], IGE <0.10 [place], [place] 2.77 (A) [place], WHITE <0.10 [place]ORT [place], IGE 0.15 (A) House Dust Mites/D.F.,Class 0.58 (A) ALTERNARIA ALTERNATA <0.10 Mouse Urine Protein, IgE <0.10 ALLERGEN, DOG DANDER, IGE 1.59 (A) ALLERGEN PROFILE, MOLD Result Value Ref Range CLASS DESCRIPTION Comment CLADOSPORIUM HERBARUM IGE <0.10 ASPERGILLUS FUMIGATUS, IGE <0.10 IGE MUCOR RACEMOSUS <0.10 IGE EVA ALBICANS <0.10 IGE AUREOBASIDIUM PULLUL <0.10 IGE PHOMA BETAE <0.10 IGE EPICOCCUM PURPURASCE <0.10 PENICILLIUM CHRYSOGEN <0.10 ALTERNARIA ALTERNATA <0.10 Fusarium Proliferatum <0.10 STEMPHYLIUM HERBARUM <0.10 SETOMELANOMMA ROSTRAT <0.10 IMMUNOGLOBULIN IGE Result Value Ref Range IMMUNOGLOBULIN IGE 133 CBC, EDIF, PLATELET Result Value Ref Range WBC (WHITE BLOOD COUNT) 10.5 3.6 - 11.0 10*3/uL RBC 5.14 4.0 - 6.1 10*6/uL HEMOGLOBIN (HGB) 14.5 14.0 - 18.0 G/DL HEMATOCRIT (HCT) 42.3 42.0 - 52.0 % MEAN CELL VOLUME 82.4 80.0 - 100.0 FL Mean Cell HGB 28.2 26.0 - 35.0 PG MEAN CELL HGB CONCENTRATION 34.2 27.0 - 37.0 G/DL RBC DISTRIBUTION 15.4 (H) 11.5 - 14.5 % PLATELET COUNT 255 130 - 400 10*3/uL MEAN PLATELET VOLUME 8.8 7.4 - 11.0 FL DIFFERENTIAL TYPE AUTO DIFF % NEUTROPHILS 53.2 37.0 - 75.0 % LYMPHOCYTE 28.8 20.0 - 55.0 % MONOCYTE % 8.8 0.0 - 10.0 % EOSINOPHIL % 8.3 0.0 - 11.0 % BASOPHIL % 0.9 0.0 - 2.0 % Absolute Neutrophil Count 5.6 1 - 6 10*3/uL LYMPHOCYTES, ABSOLUTE 3.00 1.2 - 3.4 10*3/uL MONOCYTES, ABSOLUTE 0.9 (H) 0.0 - 0.7 10*3/uL ABSOLUTE EOSINOPHIL COUNT 0.90 (H) 0 - 0 10*3/uL ABSOLUTE BASOPHIL COUNT 0.1 0 - 0 10*3/uL VITAMIN D (25-HYDROXY,TOTAL) Result Value Ref Range VITAMIN D 25 HYDROXY 20.3 NG/ML ALPHA 1 ANTITRYPSIN Result Value Ref Range ALPHA 1 ANTITRYPSIN 144 No images are attached to the encounter. Assessment and Plan: Fernando Helton is a 50 y.o. male that presents for follow up for Call the office for any questions or concerns. I did have discussion that if any medications are not covered or is not able to get the medications to call the office and let us know so other alternative/arrangements can be made. Fernando was seen today for cough. Diagnoses and all orders for this visit: Chronic obstructive pulmonary disease with acute exacerbation - benzonatate 200 MG capsule; Take 1 capsule by mouth 3 times daily as needed for Cough. - predniSONE 10 MG tablet; 4 tabs x 3 days, 3 tabs x 3 days, 2 tabs x 3 Days, then 1 tab x 3 days - guaifenesin-codeine (Cheratussin AC) 100-10 MG/5ML Syrup syrup; Take 10 mL by mouth every 4 hours as needed for Cold Symptoms for up to 10 days. - levoFLOXacin 500 MG tablet; Take 1 tablet by mouth daily for 7 days. COPD with acute exacerbation - benzonatate 200 MG capsule; Take 1 capsule by mouth 3 times daily as needed for Cough. - predniSONE 10 MG tablet; 4 tabs x 3 days, 3 tabs x 3 days, 2 tabs x 3 Days, then 1 tab x 3 days - guaifenesin-codeine (Cheratussin AC) 100-10 MG/5ML Syrup syrup; Take 10 mL by mouth every 4 hours as needed for Cold Symptoms for up to 10 days. - levoFLOXacin 500 MG tablet; Take 1 tablet by mouth daily for 7 days. Moises Patel MD documented in this encounter [facility] 08-19-2020 Miscellaneous Notes Refill needed to local pharmacy. Last OV with Dr. Rowland May 2020. documented in this encounter [facility] 08-06-2020 Miscellaneous Notes Last OV 05/28/20. Refills appropriate. documented in this encounter [facility] 06-10-2020 Miscellaneous Notes Order needed to local pharmacy. One week sample given for Xarelto 20mg PO daily. Coupon also given for refill pickup. Education handouts given. documented in this encounter [facility] 06-10-2020 History of Presen t illness Narrative Dr. Rowland notified of preliminary results of arterial duplex. Patient discussing results with Dr. Rowland and new orders received for Xarelto 20mg daily. Instructional handout given. Spoke to with recommendations as well. documented in this encounter [facility] 06-10-2020 History of Presen t illness Narrative Patient had cath on Sunday06/04/20 with a left radial cath site. Patient states that on Sunday he noticed some swelling in his left hand and left forearm and also an aching discomfort radiating from cath site to left thumb and inner aspect of left forearm to his elbow. Cath site without edema or drainage. Left radial pulse palpated. documented in this encounter [facility] 06-02-2020 Hospital Discharg e instructions Princess Cisneros RN - 06/02/2020 [facility] Post Cardiac Catheterization Discharge Instructions Site Care Leave Bandage in place the night of your catheterization. Watch for any bleeding or oozing from the site. If this occurs, lie flat and place direct pressure on the bandage for 20 minutes. If bleeding reoccurs call [facility]. For groins, remove your bandage the following morning and apply a Band-Aid over the site, so it has a complete seal over the area. This is to kelli done for 5 days with a new Band-Aid each time. Soreness and bruising are to expected. For wrist and arms, remove your bandage the following morning and apply a Band-Aid over the site, so it has a complete seal over the area. This is to be done for 5 days with a new Band-Aid each time. Soreness and bruising are to be expected. Do not submerge catheterization site in water for 5 to 7 days following the procedure. Examples include bathing, swimming, sitting in a Jacuzzi or dishwashing. You may shower 24 hours after the procedure. Call [facility] at [phone] if you notice any of the following: Bleeding or increased swelling at the puncture site Redness Drainage (either pus or blood) Increased soreness around the wound A fever over 100 F Numbness, coldness, color change, or tingling pain in your arm or leg below the wound Light headedness, dizziness, weakness of arms or legs, or difficulty with speech Chest pain, pressure, tightness or burning in the chest, arm jaw or stomach Activity Limit your activity following the catheterization as follows: No lifting over 10 pounds for 2 days if done by groin No lifting over 5 pounds for 7 days if done by wrist. Do not manipulate the wrist for 24 hours No running, jogging, climbing (more than a few stairs) for 7 days No driving or operating heavy machinery for a minimum of 48 hours Do Not Smoke or use tobacco products for 24 hours after the procedure Discuss any other activity concerns with the nurse or physician Medications Continue taking all the current medications as directed on medication reconciliation record or unless otherwise instructed to by your physician. If you do not have prescription coverage and are in need of prescription assistance, please notify the [facility] nurse or call the office. If you were prescribed Plavix (clopidogrel), Effient (prasugrel), or Brilinta (ticagrelar) after your procedure, DO NOT STOP taking this medication unless told to do so by your [facility] belly roller. Follow up appointments, tests or procedures will be on your discharge paperwork under What's next. Please call [facility] at [phone] to reschedule any appointments if needed or if you have any questions or concerns. Thank you! documented in this encounter [facility] 06-01-2020 History of Presen t illness Narrative Called and notified patient of time change for cath tomorrow. Patient to arrive to the hospital at 0800 for cath at 1000. Patient verbalizes understanding. documented in this encounter [facility] 05-28-2020 Miscellaneous Notes Associated Problem(s): COPD (chronic obstructive pulmonary disease) (HCC) Patient reports he has discontinued tobacco abuse. Associated Problem(s): ISAC (obstructive sleep apnea) Noncompliant with CPAP therapy. Associated Problem(s): Coronary artery disease involving [place] coronary artery of [place] heart without angina pectoris Patient has a long-standing history of cardiac disease beginning in April 2012 at which time he had presented with an acute anterolateral wall myocardial infarction. He underwent catheter base intervention with bare-metal stent placement to the left anterior descending at that time due to a history of profound medical noncompliance. He discontinued his medical regiment in September 2014 and had represented with an acute anterior wall myocardial infarction secondary to acute stent thrombosis. His procedure was complicated by ventricular fibrillation arrest. He underwent catheter base intervention with drug-eluting stent placement to the LAD at that time. He has chronic chest pain syndrome, and underwent relook angiography in December 2014 and had balloon intervention to a jailed diagonal branch. There was no angiographic evidence of restenosis within the left anterior descending, and his ejection fraction was 30%. Patient had presented with chest symptoms January 2019 and was found to have an occluded collateralized left anterior descending at the site of previous catheter-based intervention. LV ejection fraction was reported at 45% with anterior wall hypokinesis. 2D echocardiogram with an LV ejection fraction of 55% with akinesis of the mid and apical anteroseptal wall. Patient subsequent underwent left internal mammary grafting to the left anterior descending by Dr. Mcneil. Patient has described symptoms of exercise intolerance and dyspnea with activity with chronic chest pain complaints. Current exam does not suggest evidence for cardiac decompensation. Cardiac event recorder November 2019 short runs of nonsustained ventricular tachycardia. Myocardial perfusion study earlier this morning demonstrated large area of anteroapical infarct with distal anterior wall ischemia. I reviewed with the patient and his consideration for invasive cardiovascular testing and they have consented to proceed. Additional recommendations will be forthcoming at that time. Associated Problem(s): Mixed hyperlipidemia Patient should continue with plaque stabilization therapy. Associated Problem(s): Essential hypertension Elevated in the office today and with his history of LV dysfunction I have recommended addition of Cozaar 25 mg daily to his medical regiment. This can be intensified as tolerated. documented in this encounter [facility] 05-28-2020 History of Presen t illness Narrative CARDIOLOGY PROGRESS NOTE [facility] [address]) [facility] [address] [facility] [id number] Physicians: Moises Patel MD (Family); No ref. provider found (Referring) Subjective: Fernando Helton is a 49 y.o. male seen in the office today for No chief complaint on file. . HPI: Patient presents in cardiovascular follow-up. He is accompanied by his on his office visit this afternoon. In the office today patient has complained of persistent exercise intolerance and dyspnea with activity ambulatory functional class III. Patient describes shortness of breath going up a flight of steps or at times performing activities of daily living. Patient has also described chest symptoms both with and without activity. Patient is not describing chest discomfort in a predictable pattern with physical activity. No PND or orthopnea. No syncope. Patient is not describing palpitations. Patient was hospitalized at [facility] in an observational stay unit for complaints of shortness of breath and felt to have COPD exacerbation . In the office today I had reviewed the results of his myocardial perfusion study performed earlier this morning and cardiac event recorder from November 2019. Assessment & Plan: Essential hypertension Elevated in the office today and with his history of LV dysfunction I have recommended addition of Cozaar 25 mg daily to his medical regiment. This can be intensified as tolerated. Mixed hyperlipidemia Patient should continue with plaque stabilization therapy. Coronary artery disease involving [place] coronary artery of [place] heart without angina pectoris Patient has a long-standing history of cardiac disease beginning in April 2012 at which time he had presented with an acute anterolateral wall myocardial infarction. He underwent catheter base intervention with bare-metal stent placement to the left anterior descending at that time due to a history of profound medical noncompliance. He discontinued his medical regiment in September 2014 and had represented with an acute anterior wall myocardial infarction secondary to acute stent thrombosis. His procedure was complicated by ventricular fibrillation arrest. He underwent catheter base intervention with drug-eluting stent placement to the LAD at that time. He has chronic chest pain syndrome, and underwent relook angiography in December 2014 and had balloon intervention to a jailed diagonal branch. There was no angiographic evidence of restenosis within the left anterior descending, and his ejection fraction was 30%. Patient had presented with chest symptoms January 2019 and was found to have an occluded collateralized left anterior descending at the site of previous catheter-based intervention. LV ejection fraction was reported at 45% with anterior wall hypokinesis. 2D echocardiogram with an LV ejection fraction of 55% with akinesis of the mid and apical anteroseptal wall. Patient subsequent underwent left internal mammary grafting to the left anterior descending by Dr. Mcneil. Patient has described symptoms of exercise intolerance and dyspnea with activity with chronic chest pain complaints. Current exam does not suggest evidence for cardiac decompensation. Cardiac event recorder November 2019 short runs of nonsustained ventricular tachycardia. Myocardial perfusion study earlier this morning demonstrated large area of anteroapical infarct with distal anterior wall ischemia. I reviewed with the patient and his consideration for invasive cardiovascular testing and they have consented to proceed. Additional recommendations will be forthcoming at that time. ISAC (obstructive sleep apnea) Noncompliant with CPAP therapy. COPD (chronic obstructive pulmonary disease) (HCC) Patient reports he has discontinued tobacco abuse. EKG Interpretation: Follow Up Ordered: No follow-ups on file. Patient's Medications New Prescriptions LOSARTAN (COZAAR) 25 MG TABLET Take 1 (one) tablet (25 mg total) by mouth daily . Previous Medications ALBUTEROL 90 MCG/ACTUATION INHALER Inhale 2 puffs every 6 (six) hours as needed for wheezing or shortness of breath . ASPIRIN 81 MG EC TABLET Take 81 mg by mouth daily. ATORVASTATIN (LIPITOR) 40 MG TABLET Take 1 (one) tablet (40 mg total) by mouth nightly . AZITHROMYCIN (ZITHROMAX) 1 GRAM POWDER Take 1 packet by mouth once 5 days, 1 daily. Reasons: bacterial infection with chronic bronchitis, COPD. BLOOD SUGAR DIAGNOSTIC (GLUCOSE BLOOD) STRIPS Use as directed before breakfast and supper Dx E11.65 . BLOOD-GLUCOSE METER KIT Use as instructed Dx E11.65 . CLOPIDOGREL (PLAVIX) 75 MG TABLET Take 1 (one) tablet (75 mg total) by mouth daily . FREESTYLE 28 GAUGE LANCETS USE DIRECTED BID BEFORE BREAKFAST AND SUPPER FUROSEMIDE (LASIX) 20 MG TABLET Take 1 (one) tablet (20 mg total) by mouth daily . LANCETS MISC Use as directed before breakfast and supper Dx E11.65 . METOPROLOL TARTRATE 75 MG TAB Take 1 (one) tablet (75 mg total) by mouth 2 (two) times a day . OMEPRAZOLE (PRILOSEC) 40 MG CAPSULE Take 1 (one) capsule (40 mg total) by mouth daily . POTASSIUM CHLORIDE (K-DUR) 10 MEQ CR TABLET Take 1 (one) tablet (10 mEq total) by mouth daily . PREDNISONE (DELTASONE) 20 MG TABLET Take 20 mg by mouth daily Take 2, 20 mg pills today, 2, 20 mg pills tomorrow, 10/17/19. Reasons: worsening chronic obstructive pulmonary disease. ROPINIROLE (REQUIP) 2 MG TABLET Take 2 mg by mouth nightly. TIOTROPIUM BROMIDE (SPIRIVA RESPIMAT) 2.5 MCG/ACTUATION MIST Inhale 2 puffs daily . TRAZODONE (DESYREL) 50 MG TABLET Take 50 mg by mouth nightly as needed . Modified Medications No medications on file Discontinued Medications BUDESONIDE-FORMOTEROL (SYMBICORT) 160-4.5 MCG/ACTUATION INHALER Inhale 2 puffs 2 (two) times a day . Histories: The past history, social and family history, and allergies were reviewed and updated as needed. ROS Objective: Physical Exam Constitutional: He is oriented to person, place, and time. He appears well-developed and well-nourished. HENT: Head: Normocephalic and atraumatic. Right Ear: External ear normal. Left Ear: External ear normal. Nose: Nose normal. Mouth/Throat: Oropharynx is clear and moist. Eyes: Pupils are equal, round, and reactive to light. Neck: Normal range of motion. Neck supple. No hepatojugular reflux and no JVD present. No muscular tenderness present. Carotid bruit is not present. No edema present. No thyroid mass present. Cardiovascular: Normal rate, regular rhythm, normal heart sounds and intact distal pulses. Pulses: Radial pulses are 1+ on the right side and 2+ on the left side. Physiologic S1 and S2. Quiet precordium. No obvious murmur. Apical impulse not palpable. Jugular venous pressure difficult to estimate Pulmonary/Chest: Effort normal and breath sounds normal. Scattered expiratory wheezes. No rales Abdominal: Soft. Normal appearance and bowel sounds are normal. There is no abdominal tenderness. Musculoskeletal: Normal range of motion. Comments: No edema Neurological: He is alert and oriented to person, place, and time. He has normal strength and normal reflexes. No cranial nerve deficit. Skin: Skin is warm and dry. No cyanosis. Nails show no clubbing. Psychiatric: He has a normal mood and affect. His speech is normal and behavior is normal. I personally reviewed and verified the review of systems obtained by the medical research tech. Vitals: Vitals: 05/28/20 1605 BP: (!) 149/88 Pulse: 78 SpO2: 96% Weight: 121.6 kg (268 lb) Height: 5' 5.98 1. Essential hypertension 2. Mixed hyperlipidemia 3. Coronary artery disease involving [place] coronary artery of [place] heart without angina pectoris 4. PAD (peripheral artery disease) (HCC) 5. Centrilobular emphysema (HCC) 6. ISAC (obstructive sleep apnea) 7. Nicotine abuse 8. Pre-procedure lab exam 9. Abnormal stress test Anita Rowland MD documented in this encounter [facility] 05-28-2020 Instructions Rubi Pratt RN - 05/28/2020 4:33 PM EDT Tiffany Leo BSN, blow pit helper for Anita Rowland MD [address] [facility], 3rd Floor [place] [id number] General office (Scheduling) Covid Testing Prior to your procedure or test you will need to have a test to rule out Covid 19. This is an oral swab that is done at a drive-up testing site in [place]. You are to have this test completed no earlier than 96 hours but no less than 72 hours before your cardiac procedure or test. The testing site is at [address] [place] [address] in [place]. It is off of [address] between [address] and [facility]. The hours of testing are Sunday to Sunday 8-3 as well as Sunday and Sunday 9-. The order will be entered in our system so you do not need an order to take with you. Please take ID and insurance card. If your test result comes back positive we will notify you. Otherwise please come to your test on the scheduled date and time. Covid Test to be done on 05/29/2020 . Heart Catheterization Date and Time of your procedure Tuesday June 02, 2020 Please arrive at [facility] and check in at the Outpatient Registration by 1000 DO NOT eat or drink anything after midnight on Monday June 01, 2020 The morning of your procedure you should take your medications with as little water as possible. Bring a list of all medications you take along with dosage and frequency that you take the medications. Be sure to get the required blood work done as soon as possible. You will be given a sedative for the procedure and therefore you will not be able to drive home. Please have a ride arranged. Please be advised that occasionally you may experience significant delays for up to several hours due to emergencies and/or unavoidable circumstances. If you have any questions or concerns please contact us at [phone]. documented in this encounter [facility] 06-11-2017 Telephone encount er Note Pts left a VM requesting refills on three of the pts medications. [facility] 06-11-2017 Miscellaneous Notes Formattin g of this note might be different from the original. Pts left a VM requesting refills on three of the pts medications. documented in this encounter [facility] Evaluation note Diagnosis Essential hypertension- Primary Unspecified essential hypertension Mixed hyperlipidemia Coronary artery disease involving [place] coronary artery of [place] heart without angina pectoris PAD (peripheral artery disease) (HCC) Unspecified peripheral vascular disease Centrilobular emphysema (HCC) ISAC (obstructive sleep apnea) Obstructive sleep apnea (adult) (pediatric) Nicotine abuse Pre-procedure lab exam Pre-procedural laboratory examination Abnormal stress test Other nonspecific abnormal cardiovascular system function study documented in this encounter [facility] note* Diagnosis NSVT (nonsustained ventricular tachycardia) ([facility]) Abnormal EKG Nonspecific abnormal electrocardiogram (ECG) (EKG) documented in this encounter [facility] note* Diagnosis Other specified complications of surgical and medical care, not elsewhere classified, initial encounter- Primary documented in this encounter [facility] note* Diagnosis Other specified complications of surgical and medical care, not elsewhere classified, initial encounter- Primary documented in this encounter [facility] note* Diagnosis Other specified complications of surgical and medical care, not elsewhere classified, initial encounter documented in this encounter [facility] note* Diagnosis Other specified complications of surgical and medical care, not elsewhere classified, initial encounter documented in this encounter [facility] note* Diagnosis Chronic obstructive pulmonary disease with acute exacerbation- Primary Obstructive chronic bronchitis with exacerbation COPD with acute exacerbation Obstructive chronic bronchitis with exacerbation [facility] Inadequately controlled diabetes mellitus- Primary Type II or unspecified type diabetes mellitus without mention of complication, not stated as uncontrolled Insomnia, unspecified type documented in this encounter [facility] noteNo assessment information available[facility] Work Phone: Hospital Discharge instructions Additional Instructions If your symptoms return/worsen or you develop any further concerns or symptoms please see your doctor or return to the emergency department immediately. Please be sure to follow-up with your primary care provider regarding today's visit as well as the lab and imaging results.[facility] Work Phone: Assessments Diagnosis Leukocytosis, unspecified ty pe - Primary Diagnosis Essential hypertension - Vivi emma Unspecified essential hypertension Chronic systolic heart failu re (HCC) Chronic systolic heart failure Coronary artery disease invo lving [place] coronary artery of [place] heart without angina pectoris Hyperlipidemia, unspecified hyperlipidemia type Diagnosis Leukocytosis, unspecified ty pe - Primary Diagnosis Leukocytosis, unspecified ty pe - Primary Diagnosis Chronic systolic heart failu re (HCC) - Primary Chronic systolic heart failure Essential hypertension Unspecified essential hypertension Coronary artery disease invo lving [place] coronary artery of [place] heart without angina pectoris Diagnosis Chronic systolic heart failu re (HCC) - Primary Chronic systolic heart failure Essential hypertension Unspecified essential hypertension Coronary artery disease invo lving [place] coronary artery of [place] heart without angina pectoris Diagnosis Leukocytosis, unspecified ty pe - Primary Diagnosis Acute exacerbation of chronic obstructive pulmonary disease (COPD) ([facility])- Primary Obstructive chronic bronchitis with exacerbation Diagnosis Chronic systolic congestive heart failure (HCC) Diagnosis S/P CABG (coronary artery bypass graft) Postsurgical aortocoronary bypass status Diagnosis Chest pain, unspecified type Diagnosis S/P CABG x 1 Postsurgical aortocoronary bypass status Diagnosis S/P CABG x 1 Postsurgical aortocoronary bypass status Diagnosis S/P CABG (coronary artery bypass graft) Postsurgical aortocoronary bypass status Diagnosis S/P CABG (coronary artery bypass graft) Postsurgical aortocoronary bypass status Diagnosis S/P CABG x 1 Postsurgical aortocoronary bypass status Diagnosis S/P CABG (coronary artery bypass graft) Postsurgical aortocoronary bypass status Diagnosis Medication management Coronary artery disease, angina presence unspecified, unspecified vessel or lesion type, unspecified whether [place] or transplanted heart Diagnosis TIA (transient ischemic attack)- Primary Unspecified transient cerebral ischemia Essential hypertension Unspecified essential hypertension Mixed hyperlipidemia Coronary artery disease involving [place] coronary artery of [place] heart without angina pectoris Centrilobular emphysema ([facility]) ISAC on CPAP Nicotine abuse Diagnosis TIA (transient ischemic attack) Unspecified transient cerebral ischemia Diagnosis Chronic systolic heart failure (HCC) Chronic systolic heart failure Hypertension, unspecified type Coronary artery disease involving [place] coronary artery of [place] heart without angina pectoris Diagnosis Chronic systolic congestive heart failure ([facility]) Diagnosis Chest pain, atypical Type 2 diabetes mellitus without complication, without long-term current use of insulin ([facility]) Coronary artery disease, angina presence unspecified, unspecified vessel or lesion type, unspecified whether [place] or transplanted heart Type 2 diabetes mellitus with other circulatory complications ([facility]) S/P CABG x 1 Postsurgical aortocoronary bypass status Chest pain Unspecified chest pain ACS (acute coronary syndrome) ([facility]) Intermediate coronary syndrome PAD (peripheral artery disease) ([facility]) Unspecified peripheral vascular disease Diagnosis Pleuritic chest pain Painful respiration Diagnosis Near syncope- Primary COPD (chronic obstructive pulmonary disease) ([facility]) Chronic airway obstruction, not elsewhere classified Coronary artery disease involving [place] coronary artery of [place] heart without angina pectoris ISAC (obstructive sleep apnea) Obstructive sleep apnea (adult) (pediatric) Essential hypertension Unspecified essential hypertension TIA (transient ischemic attack) Unspecified transient cerebral ischemia Mixed hyperlipidemia Nicotine abuse Diagnosis COPD exacerbation ([facility]) Obstructive chronic bronchitis with exacerbation Diagnosis Coronary artery disease involving [place] coronary artery of [place] heart with angina pectoris ([facility])- Primary Acute on chronic diastolic heart failure ([facility]) Acute on chronic diastolic heart failure Diagnosis Acute CVA (cerebrovascular accident) ([facility]) Essential hypertension Unspecified essential hypertension Mixed hyperlipidemia Coronary artery disease involving [place] coronary artery of [place] heart without angina pectoris GERD (gastroesophageal reflux disease) Esophageal reflux PAD (peripheral artery disease) ([facility]) Unspecified peripheral vascular disease TIA (transient ischemic attack) Unspecified transient cerebral ischemia Diagnosis Pre-procedure lab exam- Primary Pre-procedural laboratory examination Instructions * Patient Instructions - Patricia Louis CNS - 09/18/2016 9:23 AM EDT Please get back with Dr. Patel about your stomach. in this encounter* Patient Instructions - Patricia Louis CNS - 09/20/2017 3:51 PM EDT Please increase enalapril to twice a day. Please quit smoking! in this encounter* Patient Instructions - Patricia Louis CNS - 01/07/2018 10:38 AM EST Please get back on your CPAP. Please take 2 furosemides a day for 3 days. Please call me with your weight and how you are feeling on Sunday. [phone] Please work your portion sizes and snacks in this encounter* Patient Instructions* Kristin Walker PA-C - 01/31/2019 9:31 AM EST Continue to use incentive spirometer 10 times every hour while awake. Continue strict sternal precautions. Continue to progress through the recovery guidelines as reflected in notebook. Continue to monitor weight daily every morning. Notify cardiac surgery for increase of 3 pounds in 3 days. Contact the office of Dr. Blake Mcneil or any member of his team should you have any questions or concernsregarding ongoing recovery from heart surgery. Resume: Lasix 20 mg daily Potassium chloride 20 mEq daily Diazepam 5 mg every 12 hours as needed for muscle spasm per Dr. Gilliam Report to ER on 02/02/19 at 8:30 am for CXR and labs. Then come to CVICU on 3rd floor to see PA. documented in this encounter* Patient Instructions* Jacob Cam PA-C - 02/06/2019 1:36 PM EST Continue to wash incision with soap and water daily. Apply betadine ointment to lower chest incision twice daily and cover with dry gauze until healed. Call if you see any active drainage from the chest incision. Continue to use the incentive spirometer several times daily. Call if you have any questions or concerns. documented in this encounter* Patient Instructions* Kristin Walekr PA-C - 02/13/2019 9:20 AM EST Continue strict sternal precautions. Continue using incentive spirometer 10 times every hour while awake. Continue to progress through notebook as directed. Call with any questions or concerns. documented in this encounter* Patient Instructions* Kristin Walker PA-C - 02/21/2019 10:21 AM EST At this time, we will continue to monitor Mr. Helton for any changes and have advised him to contactour office should he have any questions or concerns or any new onset of symptoms. There does not appear to be any defining symptoms and diagnoses at this time. He is scheduled to follow-up again withcardiac surgery for his 5-week follow-up appointment on 02/28/2019 11:00 AM. I have advised Mr. Helton that he may take Claritin or Zyrtec should he begin to experience congestion, he may resume Mucomyst 600 mg twice daily for coughing. Continue to take acetaminophen as needed for discomfort. Continue to monitor temperature, weight and vital signs. Contact our office should he have any questions or concerns or any change in symptoms. Patient and spouse verbalized understanding of same. Emotional support and encouragement provided. documented in this encounter* Patient Instructions* Kristin Walker PA-C - 02/26/2019 2:03 PM EST I advised that lifting restrictions are maintained at 10 pounds over the course of the next 4 weeks. Do not resume driving privileges until discomfort of back/chest wall pain has resolved and no longer taking Robaxin. He will need to follow up with cardiology, cardiac rehab and related appointments as previously scheduled. From a cardiothoracic surgery standpoint, Dr. Neo Mcneil and our team will no longer need to follow up with the patient and is released back to their primary careprovider for medical therapy. Contact the office of Dr. Mcneil's team to report update on chest wall/back pain resolution. Robaxin 750 mg po at HS documented in this encounter* Patient Instructions* Rubi Pratt RN - 04/03/2019 3:20 PM EST How to contact your Care Team: Provider: Carlo Mercedes MD Nurse: Rubi Pratt RN MSN In case of an emergency please call 911. REFILLS: When in need for refills please call your care team or the office at [phone]. Please include medication name, pharmacy name, and specify 30-day or 90-day supply. Please check with your pharmacy within 24 hours of request for your refill. You must follow up as directed to continue current refills. Thank you! documented in this encounter* Patient Instructions* Tiffany Leo RN - 10/15/2019 2:20 PM EDT 30 Day Cardiac Event Monitor: A cardiac event monitor has been ordered. It is a device that is worn that will record your heart beat and rhythm. It will be mailed to your home and put on by yourself at home. On your After Visit Summary under What's Next will be what looks like an office visit labeled Cardiac Event Monitor and has our office address and a date/time listed. THIS IS NOT AN ACTUAL OFFICEVISIT THAT YOU NEED TO COME TO. It is our documentation that your monitor was ordered and is to make sure that the company knows to mail it to you. Prior to it being mailed you will receive a phone call from the company that supplies the cardiac event monitor to confirm your address. Please be sure to answer the phone as they will not mail it toyou if address is not confirmed. It will be an out of state phone number. Instructions will accompany the monitor to assist you in putting on the monitor, charging the battery and answering any questions you may have. If after reading the instructions you have any questions please do not hesitate to call the company at the number they have provided in the instruction manual. They will send two batteries and a echo technologist. While you are wearing one of the batteries please have the other battery charging in the echo technologist device. Please do not get the device wet. Patches that you will wear will be provided. Please rotate the site that you put the patches on to prevent skin breakdown. When completed please mail back to the company in the box originally provided and send back via UPS. Instructions will accompany the device on how to do this. It can take three weeks or more to get a report back after you have finished wearing the monitor. You will be notified when results have been interpreted by a belly roller. If you have any questions please call [phone]. documented in this encounter* Patient Instructions* Ligia Koroma RN - 12/26/2018 4:05 PM EST Your nurse today was Ligia HURT who can be contacted at [phone]. You may also contact Kalina Bernal other nurse at [phone]. REFILLS: When in need of refills please call Lgiia at the above number or the office at [phone]. Please include medication name and dose, pharmacy name and location, and specify 30-day or 90-day supply. Please check with your pharmacy within 24-48 hours of request for your refill. You must follow up as directed to continue current refills. Thank you! documented in this encounter History of Present Illness * Patricia Louis, STAFFING COORDINATOR - 01/07/2018 10:37 AM EST Formatting of this note may be different from the original. 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 male with a h/o STEMI, strong fam hx of CAD, coronary stenting, cardiac arrest re-stenting and later balloon PCI. The patient is accompanied by his at his visit. Mr. Helton has cancelled numerous appointment in the past year. We were happy to see him today. Today, he called with concerns about increased shortness of breath and weight gain. His weight is up 9 lbs. His lungs are clear, however he does have abdominal distention. He will increase lasix to 20 mg BID for 3 days. At his last visit, his weight was up 14 lbs since his last OV last year. His lungs were clear, slight pedal edema. 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 He had been playing softball. He had no evidence of fluid overload. He admitted that he has not been watching his diet at all. We reviewed a low sodium portion limited meal plan. Mr. Helton has quit smoking since his last visit. He was applauded for his efforts. Mr. Helton has not seen a belly roller in some time. He will be scheduled today. Congestive Heart Failure Intake General Data In CHF program?: Yes Heart Failure etiology: Ischemic Heart Failure type: Systolic Received HF educational booklet: Pos 6 minute walk in past year: Neg NYHA functional class: II Last Ejection Fraction: 42 Modality: Nuclear Systolic HF medication titration data On BetaBlocker?: Yes Dosing: Maximally tolerated On DANILO/ARB/ARNI: DANILO Dosing: Maximally tolerated On Aldosterone Antagonist?: No On Ivabradine?: No On Digoxin?: No On Hydralazine?: No On Nitrate?: No CARDIAC HISTORY INCLUDES: Strong family hx w/ Father having PA/CABG at age 45. Mother w/ PA at 63 and CVA hx. The patient had an STEMI (anterior/lateral) in April 2012 required IABP and bare metal stenting. He was non-compliant w/ medications and had a anterior PA in 2014 w/ cardiac arrest and additional stenting. In December of 2014 he had a repeat cath and had balloon PCI to a diagonal branch. EF is 30%. 09/15/2015 Spect The patient's calculated post stress LVEF was 42%. Gated imaging under post-stress conditions demonstrated moderate hypokinesis of the mid anterior, mid anteroseptal, apical inferior, apical lateral segment(s); severe hypokinesis of the apical anterior, apical septal, apex segment(s). Histories: Past Medical History: Diagnosis Date Ankle swelling Anxiety Appendicitis 1998 s/p appendectomy 1998 CAD (coronary artery disease) CAD s/p [facility] [facility] with 1 stent in left main 07/2012, replaced 09/2014 Chest pain Circulation problem right leg COPD (chronic obstructive pulmonary disease) ([facility]) Fatigue GERD (gastroesophageal reflux disease) Headache HLD (hyperlipidemia) HTN (hypertension) Metabolic syndrome Mood disorder ([facility]) Obstructive sleep apnea Pneumomediastinum ([facility]) 01/2007 Rotator cuff tear, right 1997 s/p repair SLAP tear of shoulder 2011 left - s/p surgery to place [address] elevation myocardial infarction (STEMI) of anterolateral wall ([facility]) 05/09/12 Past Surgical History: Procedure Laterality Date APPENDECTOMY 1998 CARDIAC CATHETERIZATION 09/2014 Segment LV dysf., mild to moderate LV systolic impairment, moderate LV diastolic dysf.; single vesselCAD CARDIAC CATHETERIZATION 04/2012 Severe LV systolic dysf., EF 20%; elevated LVEDP; segmental contraction abnormality of the LV; single vessel CAD with acute thrombotic occlusion of left anterior descending. CARDIAC CATHETERIZATION Left 09/28/2015 Dr. 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 Normal LV end-diastolic pressure. COLONOSCOPY 05/27/2015 CORONARY STENT PLACEMENT 2012 Drug eluted Alpine stent in the left anterior descending CORONARY STENT PLACEMENT 2014 Subacute stent thrombosis which appears late. This may be in the settin g of areas of restenosis within the stent. Alpine XIENCE drug eluted stent OTHER SURGICAL HISTORY 05/27/2015 Endoscopy ROTATOR CUFF REPAIR Right 1997 SHOULDER ARTHROSCOPY W/ SUPERIOR LABRAL ANTERIOR POSTERIOR REPAIR Left 11/21/12 SHOULDER ARTHROSCOPY W/ SUPERIOR LABRAL ANTERIOR POSTERIOR REPAIR Left [address] 6 anchors SHOULDER SURGERY Left 05/08/2013 SINUS SURGERY 2008 or 2009 STENT PLACEMENT 05/09/12 and intraaortic balloon pump Current Medications: Current Outpatient Prescriptions Medication Sig Dispense Refill ALBUTEROL SULFATE (VENTOLIN HFA INHL) Inhale as needed aspirin 81 MG EC tablet Take 81 mg by mouth daily. atorvastatin (LIPITOR) 20 MG tablet Take 1 (one) tablet (20 mg total) by mouth daily. 90 tablet 3 BUDESONIDE/FORMOTEROL FUMARATE (SYMBICORT INHL) Inhale 2 (two) times a day carvedilol (COREG) 12.5 MG tablet Take 1 (one) tablet (12.5 mg total) by mouth 2 (two) times a day with meals. 180 tablet 3 enalapril (VASOTEC) 5 MG tablet Take 1 (one) tablet (5 mg total) by mouth 2 (two) times a day. 180 tablet 3 furosemide (LASIX) 20 MG tablet TAKE NEEDED FOR WEIGHT GAIN DIRECTED; MAX 1 TABLET PER DAY 90tablet 3 omeprazole (PRILOSEC) 40 MG capsule Take 40 mg by mouth daily prasugrel (EFFIENT) 10 mg tablet Take 1 (one) tablet (10 mg total) by mouth daily. 90 tablet 3 rOPINIRole (REQUIP) 2 MG tablet Take 2 mg by mouth nightly. No current facility-administered medications for this visit. Allergies Allergen Reactions Imdur [Isosorbide Mononitrate] Caused severe headache and had to stop it. Review of Systems Constitution: Positive for malaise/fatigue and weight gain (9 lb weight gain). Negative for chills and fever. HENT: Negative. Negative for nosebleeds. Eyes: Negative. Cardiovascular: Positive for chest pain and dyspnea on exertion. Negative for leg swelling. Respiratory: Negative. Negative for cough. Not using CPAP Endocrine: Negative. Hematologic/Lymphatic: Negative. Skin: Negative. Musculoskeletal: Positive for arthritis and back pain. Gastrointestinal: Positive for bloating. Negative for constipation and diarrhea. Genitourinary: Negative. Negative for dysuria. Neurological: Positive for excessive daytime sleepiness. Negative for dizziness, headaches and light-headedness. Psychiatric/Behavioral: Positive for depression. Allergic/Immunologic: Negative. Objective: Physical Exam Constitutional: He is oriented to person, place, and time. He appears well- developed and well-nourished. obese HENT: Head: Normocephalic and atraumatic. Eyes: Conjunctivae and EOM are normal. Neck: Normal range of motion. Neck supple. No JVD present. Cardiovascular: Normal rate, regular rhythm and normal heart sounds. Pulses: Radial pulses are 2+ on the right side, and 2+ on the left side. Dorsalis pedis pulses are 1+ on the right side, and 1+ on the left side. Posterior tibial pulses are 1+ on the right side, and 1+ on the left side. Pulmonary/Chest: Effort normal and breath sounds normal. No respiratory distress. He has no wheezes. He has no rales. Abdominal: Soft. Bowel sounds are normal. He exhibits distension. Musculoskeletal: He exhibits no edema. Neurological: He is alert and oriented to person, place, and time. Skin: Skin is warm and dry. Psychiatric: He has a normal mood and affect. His behavior is normal. Judgment and thought content normal. Vitals: Vitals: 01/07/18 1029 BP: 124/80 Pulse: 78 SpO2: 96% Weight: 106.6 kg (235 lb) Height: 5' 6 Lab Review: 09/24/2017 BUN 17 Cr 1.13 Na 138 K+ 3.9 Hgb 14.8 Hct 44.6 PLT 280 Assessment & Plan: Plan IMPRESSION: HFrEF Etiology: ischemic Most recent known EF: 42% Stage: C NYHA Class: II Mr. Helton does have evidence of fluid overload. His weight is up 9 bs, lungs are clear, no pedal edema. Essential hypertension: Currently under good control CAD - Significant family hx for CAD at a young age H/o STEMI w/ stenting in 2012, 2014 and later balloon PCI to diagonal in December 2014 H/o cardiac arrest Intolerant of Imdur r/t headaches. On ASA, DANILO, BB HTCZ and Effient. EF 42% Sleep apnea : CPAP broken and awaiting service. Hyperlipidemia: On Lipitor Smoker - has resumed 1ppd. Encouraged to quit Patient lives with . PLAN: Patient placed on guideline directed therapy including: DANILO/ARB/Entr: Enalapril 5 mg BID today BB: Carvedilol 12.5 mg BID Labs: BMP Activity goal: Walking 15 minutes daily Patient encouraged w/ daily weight and recording Diet counseling: Patient was counseled on low sodium heart healthy diet. FOLLOW-UP SCHEDULE: Patient is to follow up with Dr. Au Patient will return to see us in 2 weeks 30 minutes was spent w/ the patient. Over half of this time was spent in counseling regarding medication therapy, treatments, activity, diet planning including teaching and review of reports with patient. There is collaboration between the STAFFING COORDINATOR and the consulting/collaborating physician regarding this patient's plan of care. Dr. Au has been updated regarding the patient's status via EMR. Thank you for allowing us to participate in the care of our patient. Please call if you have any further questions. Signature: CHRISTIAN Tucker in this encounter* Bev Tolentino MD - 11/02/2016 10:34 AM EDT Formatting of this note may be different from the original. Hematology Clinic Follow Up Note Diagnosis: Leukocytosis Date of Service: 11/02/16 PCP: Moises Patel MD Interval History: Mr. Helton is here for follow-up on his lab results. He continues to feel generally well. He still has the occasional sweats, however no fevers, chills, nausea, vomiting. His appetite is okay. Denies any new rashes or lesions. Energy is okay. No bleeding including melena, BRBPR, nosebleeds, gingivalbleeding. He denies any recent issues with allergic reactions, dermatitis, rhinitis. Oncology History: Mr. Helton is a 46-year-old gentleman with history of multiple medical problems including CAD statuspost [facility] with 1 stent placed in the left main coronary artery, hypertension, hyperlipidemia, COPD, ISAC and anxiety/depression. He has been referred to hematology for leukocytosis. The patient states that he has been feeling increasing fatigue over the last 4-5 months. He states that he is feeling generally worn down and not necessarily short of breath. He states that he has also lost about 30 pounds in the last 4 months or so. He denies any increased activity or changes in his diet. He denies fevers, night sweats, chills. He said that he is still eating normally and his appetite is good in spi te of the weight loss. His bowels are moving normally. He denies any constipation or diarrhea. He states that he occasionally has BRBPR, however he does have a history of hemorrhoids. He denies any melena. Denies any adenopathy, new rash, or recent infections. He denies any new chest pains, new shortness of breath, lower extremity edema, cough. He does note that he has been having back pain in the last month or so. He states that the pain is located in the middle part of the lower back and he has pain that extends down his leg. Currently not working. He has been on disability for the past 2 years. 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 He recently quit smoking in April of this year. He says that he smoked for over 20 years about half a pack to 1 pack per day. He still does hang around witha lot of friends who smoke fairly heavily though per his . No recent steroid use, no new medications. Follows regularly with the cardiology nurse practitioner and follows with his PCP Dr. Patel. Past Medical History: Diagnosis Date Ankle swelling Anxiety Appendicitis 1998 s/p appendectomy 1998 CAD (coronary artery disease) CAD s/p [facility] with 1 stent in left main 07/2012, replaced 09/2014 Chest pain Circulation problem right leg COPD (chronic obstructive pulmonary disease) ([facility]) Fatigue GERD (gastroesophageal reflux disease) Headache HLD (hyperlipidemia) HTN (hypertension) Metabolic syndrome Mood disorder ([facility]) Obstructive sleep apnea Pneumomediastinum ([facility]) 01/2007 Rotator cuff tear, right 1997 s/p repair SLAP tear of shoulder 2011 left - s/p surgery to place [address] elevation myocardial infarction (STEMI) of anterolateral wall ([facility]) 05/09/12 Past Surgical History: Procedure Laterality Date APPENDECTOMY 1998 CARDIAC CATHETERIZATION 09/2014 Segment LV dysf., mild to moderate LV systolic impairment, moderate LV diastolic dysf.; single vesselCAD CARDIAC CATHETERIZATION 04/2012 Severe LV systolic dysf., EF 20%; elevated LVEDP; segmental contraction abnormality of the LV; single vessel CAD with acute thrombotic occlusion of left anterior descending. CARDIAC CATHETERIZATION Left 09/28/2015 Dr. 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 Normal LV end-diastolic pressure. COLONOSCOPY 05/27/2015 CORONARY STENT PLACEMENT 2012 Drug eluted Alpine stent in the left anterior descending CORONARY STENT PLACEMENT 2014 Subacute stent thrombosis which appears late. This may be in the settin g of areas of restenosis within the stent. Alpine XIENCE drug eluted stent OTHER SURGICAL HISTORY 05/27/2015 Endoscopy ROTATOR CUFF REPAIR Right 1997 SHOULDER ARTHROSCOPY W/ SUPERIOR LABRAL ANTERIOR POSTERIOR REPAIR Left 11/21/12 SHOULDER ARTHROSCOPY W/ SUPERIOR LABRAL ANTERIOR POSTERIOR REPAIR Left [address] 6 anchors SHOULDER SURGERY Left 05/08/2013 SINUS SURGERY 2008 or 2010 STENT PLACEMENT 05/09/12 and intraaortic balloon pump Family History Problem Relation Age of Onset Heart attack Father Other Father high cholesterol Heart disease Father Other Mother high cholesterol Heart disease Mother Stroke Mother 64 Coronary artery disease Cancer Paternal Uncle unknown cancer Social History Social History Marital status: Spouse name: N/A Number of children: N/A Years of education: N/A Social History Main Topics Smoking status: Former Smoker Packs/day: 0.25 Quit date: 05/12/2016 Smokeless tobacco: Never Used Comment: 20+ years. Quit May 12 Alcohol use No Comment: socially Drug use: Yes Special: Marijuana Comment: smokes marijuana 1-2 times per month Sexual activity: Not Asked Other Topics Concern None Social History Narrative Allergies Allergen Reactions Imdur [Isosorbide Mononitrate] Caused severe headache and had to stop it. Current Outpatient Prescriptions Medication Sig Dispense Refill ALBUTEROL SULFATE (VENTOLIN HFA INHL) Inhale as needed amLODIPine (NORVASC) 10 MG tablet Take 1 tablet (10 mg total) by mouth daily. 90 tablet 3 aspirin 81 MG EC tablet Take 81 mg by mouth daily. atorvastatin (LIPITOR) 20 MG tablet Take 1 tablet (20 mg total) by mouth daily. 90 tablet 3 BUDESONIDE/FORMOTEROL FUMARATE (SYMBICORT INHL) Inhale 2 (two) times a day carvedilol (COREG) 12.5 MG tablet Take 1 tablet (12.5 mg total) by mouth 2 (two) times a day with meals. 180 tablet 3 cyclobenzaprine (FLEXERIL) 5 MG tablet Take 5 mg by mouth nightly. enalapril (VASOTEC) 5 MG tablet Take 1 tablet (5 mg total) by mouth daily. 90 tablet 3 hydroCHLOROthiazide (MICROZIDE) 12.5 mg capsule Take 1 capsule (12.5 mg total) by mouth daily. 90 capsule 3 omeprazole (PRILOSEC) 40 MG capsule Take 40 mg by mouth daily prasugrel (EFFIENT) 10 mg tablet Take 1 tablet (10 mg total) by mouth daily. 90 tablet 3 rOPINIRole (REQUIP) 2 MG tablet Take 2 mg by mouth nightly. No current facility-administered medications for this visit. Review of Systems: General Constitutional: + fatigue, ~30 lb weight loss. Denied fevers, chills, anorexia, or night sweats ENT: denied nasal drainage, sinus pressure Mouth: denied oral ulcers Lymphatics: no new adenopathy in cervical, supraclavicular, axillary, inguinal regions Respiratory: no cough, SOB CV: denied palpitations, chest pain/pressure, PND, orthopnea. GI: denied abd pain, n/v/d, constipation, melena. : denied dysuria, urgency, frequency or hematuria. Skin: no rashes or lesions Musculoskeletal: + back pain with extension down the leg. Hematologic/lmmunologic: no adenopathy, bleeding, easy bruisiality or recurrent infection. Neurology: Denied new headaches, numbness or weakness of extremities Psych: denied anxiety, depression or mood swings Physical Exam: PACU Vitals 11/02/16 1000 BP: (!) 135/92 Pulse: 63 PainSc: 0-No pain ECOG 1 Gen: NAD, resting comfortably HEENT: NCAT, anicteric sclerae, mmm, no op lesions Neck: supple, no thyromegaly or LAD Lymphatics: no cervical, axillary, or inguinal adenopathy Chest: CTAB, no w/r/r, no respiratory distress CV: RRR, no m/r/g, normal S1, S2 Abd: soft, nontender, nondistended, +BS, no hepatosplenomegaly Ext: wwp, no c/c/e Skin: no rashes or lesions Neuro: no focal deficits, moves all four extremities Labs: Lab Results Component Value Date WBC 10.8 (H) 10/26/2016 HGB 15.3 10/26/2016 HCT 46.0 10/26/2016 PLT 260 10/26/2016 Absolute lymphocyte count 3.9, absolute monocyte count 0.7, absolute eosinophils 0.8 LDH: 158, ESR: 10, CRP: 15 point FISH for BCR/abl negative Peripheral smear: Absolute eosinophilia. Possible causes include allergic or drug reaction, cutaneous disorders, collagen vascular disease, parasite infection, pulmonary diseases including sarcoidosis, or underlying neoplasm Assessment & Recommendations: 1. Leukocytosis, unspecified type Mr. Helton is a 46-year-old gentleman with multiple medical problems including coronary artery disease, hypertension, hyperlipidemia who is being seen by hematology for leukocytosis. On review of his labs and sorry and from the past year, his WBC has been mildly elevated during this time. A trends around the 10-12 range. Again his neutrophil count is generally the normal range. His absolute lymphocyte count has been slightly elevated during this time. His CBC from September shows a lymphocytosis of 4.6. He has also been experiencing some symptoms including increasing fatigue, weight loss of about 30 pounds, and occasional sweats. Given this we sent off the above labs. His workup today has been largely unremarkable. BCR/abl is negative. LDH is normal, and inflammatory markers are largely normal. His repeat CBC showed improvement with his white count of 10.8 and his lymphocyte count improved to3.9. The upper range of normal for lymphocytes is 3.6. Unfortunately, the flow cytometry was not sent with his labs that were drawn last week due to a laberror. However as above his lymphocyte count is going down and currently at 3.9. The highest his lymphocyte count has been in [place] was 4.6. It has not gone above 5, which is the threshold and wouldbe more concerning for an underlying lymphoproliferative disorder. Given this, I discussed with the patient holding off on the flow cytometry for now and will plan tofollow-up with him in 2 months with a repeat CBC prior. If the lymphocyte count is increasing and is 5 or higher we will plan to send for flow cytometry at that time. I also instructed the patient that if he developed any new symptoms including fevers, chills, nightsweats, continued weight loss that he should call the office and come for a sooner visit. We will plan to see the patient back in 2 months with a repeat CBC prior. - CBC and Differential; Future Tere Tolentino MD in this encounter* Kristin Walker PA-C - 01/31/2019 9:32 AM EST Kristin Walker PA-C 01/31/19 Fernando Helton Allergies Allergen Reactions Imdur [Isosorbide Mononitrate] Caused severe headache and had to stop it. BP 123/89 Pulse 93 Temp 98.1 F (36.7 C) Resp 16 Ht 5' 6 Wt 114.3 kg (251 lb 14.4 oz) SpO2 94% BMI 40.66 kg/m Chief Complaint Patient presents with Follow-up S/P CABG x 1 without cardiopulmonary bypass by Dr. Mcneil on 01/24/19 Assessment: Mr. Fernando Helton is a very pleasant 48-year-old male who is status post single-vessel coronary artery bypass grafting without the use of cardiopulmonary bypass by Dr. Blake Mcneil on 01/24/2019. He presents today and is accompanied by his spouse for scheduled follow-up appointment. He contacted the on-call PA last evening on 01/30/2019 to report sternal pain after unexpectedly coughing and not using sternal precautions. Today he continues to complain of discomfort from coughing. He is brought to the examination room via wheelchair. He is sitting in the examination chair with legs elevated, no obvious visible distress. He denies fever, chills, orthopnea, paroxysmal noctur nal dyspnea, chest pain, syncope nor near syncope. He does complain of shortness of breath with ambulation, reports his pants are unable to be but secondary to distention of his abdomen, edema of hisbilateral lower extremities and discomfort with inspiration of the left chest wall. Sternal incision has Steri-Strips intact. Steri-Strips removed as today is day 7 from application. Sternal incision is well approximated, no erythema, edema, calor nor drainage noted. Trocar sites with forming scabs. Photo documentation obtained and reflected herein. Chest x-ray reveals low lung volumes with pulmonary venous congestion. He has bilateral small pleural effusions. Sternal wires are aligned and intact and appeared unchanged from previous films. Presence of abandoned temporary epicardial pacing wires is noted. He does have audible fine expiratory wheezes, lungs are otherwise clearto auscultation posteriorly. His weight today is 114.3 kg, approximately 1 kg above his preadmission weight of 113.4 kg. He is wearing his heart hugger and bilateral lower extremity PRASAD hose. Serum laboratory studies reveal prerenal azotemia with BUN and creatinine of 30 and 1.03 respectively. Plan: At this time, we will resume gentle diuresis with Lasix 20 mg daily, potassium chloride 20 mEq daily. We will follow-up with Mr. Helton on 02/02/2019 in CVICU, chest x-ray and labs priorto being seen by the PA. Dr. Arvin Gilliam, [facility] for Dr. Blake Mcneil was updated on the patient's current status, vital signs, medications, current serum laboratory studies and presentation. Dr. Gilliam has ordered 5 mg of Valium every 12 hours as needed for discomfort to the left chest wall. Patient spouse verbalized understanding of new orders. I have reinforced and advised them to contact the office of Dr. Blake Mcneil and our team should they have any questions or concerns regarding his ongoing recovery from heart surgery. Otherwise, we will see Mr. Helton again on 02/02/2019. Continue to use incentive spirometer 10 times every hour while awake. Continue strict sternal precautions. Continue to progress through the recovery guidelines as reflected in notebook. Continue to monitor weight daily every morning. Notify cardiac surgery for increase of 3 pounds in 3 days. Steri strips Steri strips removed, incision washed and betapaint Physical Exam Constitutional: General: He is not in acute distress. Appearance: Normal appearance. He is not toxic-appearing or diaphoretic. HENT: Head: Normocephalic and atraumatic. Nose: Nose normal. Mouth/Throat: Mouth: Mucous membranes are moist. Pharynx: Oropharynx is clear. Eyes: General: No scleral icterus. Extraocular Movements: Extraocular movements intact. Pupils: Pupils are equal, round, and reactive to light. Neck: Musculoskeletal: Normal range of motion and neck supple. Cardiovascular: Rate and Rhythm: Normal rate and regular rhythm. Heart sounds: Normal heart sounds. No murmur. No friction rub. No gallop. Pulmonary: Effort: Pulmonary effort is normal. No respiratory distress. Breath sounds: No stridor. Wheezing present. No rhonchi or rales. Abdominal: General: There is distension. Comments: Last bowel movement: 01/30/2019 Genitourinary: Comments: Voiding without difficulty Musculoskeletal: Normal range of motion. General: Swelling present. Comments: +1 pitting edema to bilateral lower extremities. PRASAD hose: On Skin: General: Skin is warm and dry. Neurological: General: No focal deficit present. Mental Status: He is alert and oriented to person, place, and time. Mental status is at baseline. Psychiatric: Mood and Affect: Mood normal. Behavior: Behavior normal. Judgment: Judgment normal. Current Outpatient Medications: acetaminophen (TYLENOL) 325 MG tablet, Take 2 (two) tablets (650 mg total) by mouth every 6 (six) hours as needed for pain ., Disp: 30 tablet, Rfl: 0 albuterol 90 mcg/actuation inhaler, Inhale 2 puffs every 6 (six) hours as needed for wheezing or shortness of breath ., Disp: , Rfl: aspirin 81 MG EC tablet, Take 81 mg by mouth daily., Disp: , Rfl: atorvastatin (LIPITOR) 20 MG tablet, Take 1 (one) tablet (20 mg total) by mouth nightly ., Disp: 90tablet, Rfl: 0 budesonide-formoterol (Symbicort) 160-4.5 mcg/actuation inhaler, Inhale 2 puffs 2 (two) times a day., Disp: , Rfl: clopidogrel (PLAVIX) 75 mg tablet, Take 1 (one) tablet (75 mg total) by mouth daily ., Disp: 90 tablet, Rfl: 0 docusate sodium (COLACE) 100 MG capsule, Take 1 (one) capsule (100 mg total) by mouth daily Hold only for diarrhea ., Disp: 30 capsule, Rfl: 0 ferrous sulfate 325 (65 FE) MG tablet, Take 1 (one) tablet (325 mg total) by mouth 3 (three) times a day with meals ., Disp: 90 tablet, Rfl: 0 ipratropium-albuterol (DUO-NEB) 0.5-2.5 mg/3 ml nebulizer, Take 3 mL by nebulization every 6 (six) hours ., Disp: 360 mL, Rfl: 0 metoprolol tartrate 75 mg Tab, Take 75 mg by mouth 2 (two) times a day ., Disp: 60 tablet, Rfl: 2 omeprazole (PRILOSEC) 40 MG capsule, Take 1 (one) capsule (40 mg total) by mouth daily ., Disp: 30 capsule, Rfl: 0 oxyCODONE-acetaminophen (PERCOCET) 5-325 mg per tablet, Take 1 (one) tablet by mouth every 4 (four)hours as needed for pain (Days supply per fill: 4.5) ., Disp: 28 tablet, Rfl: 0 rOPINIRole (REQUIP) 2 MG tablet, Take 2 mg by mouth nightly., Disp: , Rfl: blood sugar diagnostic (glucose blood) strips, Use as directed before breakfast and supper Dx E11.65 ., Disp: 100 each, Rfl: 6 blood-glucose meter kit, Use as instructed Dx E11.65 ., Disp: 1 each, Rfl: 0 lancets Misc, Use as directed before breakfast and supper Dx E11.65 ., Disp: 100 each, Rfl: 6 Fernando was seen today for follow-up. Diagnoses and all orders for this visit: S/P CABG (coronary artery bypass graft) Return in about 1 week (around 02/07/2019), or 10:00 am. documented in this encounter* Kristin Walker PA-C - 01/31/2019 2:22 PM EST Valium script called to pharmacy documented in this encounter* Kristin Walker PA-C - 02/04/2019 6:34 AM EST 02/04/19 Fernando Helton SUBJECTIVE: Patient sitting up to chair, legs in dependent position, watching TV. Patient states hehas been awake since approximately 330 4:00. Reports that he feels significantly improved from yesterday on 02/03/2019 prior to left thoracentesis. States he feels he is ready to go home, continues to experience catch on left chest wall however is tolerable and significantly reduced from prior toadmission. He states he is able to ambulate full lap in unit which is new for him secondary to previous significant dyspnea upon exertion. OBJECTIVE: VITAL SIGNS: BP 118/76 (BP Location: Left arm, Patient Position: Lying) Pulse 82 Temp 98.6 F (37 C) (Oral) Resp 16 Ht 5' 6 Wt 109.1 kg (240 lb 6.6 oz) SpO2 93% BMI 38.80 kg/m Labs: Recent Labs 02/02/19 0856 02/03/19 0422 02/04/19 0426 NA 139 137 138 K 4.0 4.1 4.0 CL 106 104 106 BICARB 25 26 27 BUN 26* 26* 27* CREATININE 1.04 1.03 1.06 GLUCOSE 131* 109* 106* Recent Labs 02/02/19 1047 02/02/19 1207 02/03/19 0422 02/04/19 0426 WBC 14.43* -- 14.25* 12.92* HGB 11.4* 12.0* 12.1* 11.5* HCT 34.8* 36.8* 36.8* 35.4* PLT 555* -- 525* 514* No results for input(s): INR in the last 72 hours. Current Medications: aspirin EC tablet 81 mg 81 mg, Oral, Daily Given, 81 mg at 02/03 09 atorvastatin (LIPITOR) tablet 20 mg 20 mg, Oral, Nightly Given, 20 mg at 02/03 2127 budesonide-formoterol (SYMBICORT) 160-4.5 mcg/actuation inhaler 2 puff 2 puff, Inhl, BID Given, 2 puff at 02/04 1932 clopidogrel (PLAVIX) tablet 75 mg 75 mg, Oral, Daily Ordered docusate sodium (COLACE) capsule 100 mg 100 mg, Oral, Daily Given, 100 mg at 02/03 913 ferrous sulfate tablet 325 mg 325 mg, Oral, TID with meals Given, 325 mg at 02/03 1718 furosemide (LASIX) tablet 20 mg 20 mg, Oral, Daily Given, 20 mg at 02/03 913 gabapentin (NEURONTIN) capsule 300 mg 300 mg, Oral, Q8H JUVENCIO Given, 300 mg at 02/04 539 ipratropium-albuterol (DUO-NEB) 0.5-2.5 mg/3 ml nebulizer solution 3 mL 3 mL, nebu, Q6H JUVENCIO Given, 3 mL at 02/04 322 metoprolol tartrate (LOPRESSOR) tablet 75 mg 75 mg, Oral, BID Given, 75 mg at 02/03 2127 pantoprazole (PROTONIX) EC tablet 40 mg 40 mg, Oral, Daily Given, 40 mg at 02/03 913 potassium chloride SA (K-DUR,KLOR-CON) CR tablet 20 mEq 20 mEq, Oral, Daily Given, 20 mEq at 02/03 913 rOPINIRole (REQUIP) tablet 2 mg 2 mg, Oral, Nightly Given, 2 mg at 02/03 2127 sodium chloride (PF) (NS) flush 5 mL 5 mL, IV, Q8H JUVENCIO Given, 5 mL at 02/04 0539 oxyCODONE-acetaminophen (PERCOCET) 5-325 mg per tablet 1 tablet 1 tablet, Oral, Q4H PRN Given, 1 tablet at 02/03 2127 Physical Exam Constitutional: He is oriented to person, place, and time. He appears well- developed and well-nourished. No distress. Denies fever, chills, dyspnea, orthopnea, paroxysmal nocturnal dyspnea, chest pain, syncope nor near syncope. Continues to complain of catch on left chest wall with occasional inspiration, however improved HENT: Head: Normocephalic and atraumatic. Mouth/Throat: No oropharyngeal exudate. Eyes: Conjunctivae and EOM are normal. No scleral icterus. Neck: Normal range of motion. Neck supple. No tracheal deviation present. No thyromegaly present. Cardiovascular: Normal rate, regular rhythm, normal heart sounds and intact distal pulses. Exam reveals no gallop and no friction rub. No murmur heard. Normal sinus rhythm on telemetry Pulmonary/Chest: Effort normal and breath sounds normal. No respiratory distress. He has no wheezes. He has no rales. Respirations even and unlabored. No obvious visible distress. Diminished yet improved left posterior lower lobe Abdominal: Soft. Bowel sounds are normal. He exhibits no distension. There is no abdominal tenderness. There is no rebound. Last bowel movement: 02/04/2019 Genitourinary: Genitourinary Comments: Voiding without difficulty Musculoskeletal: Normal range of motion. General: Edema present. Comments: Generalized nonpitting edema to bilateral lower extremities, improved with diuretic therapy and leg elevation Neurological: He is alert and oriented to person, place, and time. Skin: Skin is warm and dry. No rash noted. He is not diaphoretic. No erythema. Sternal incision with edges well approximated. No erythema, edema, calor nor drainage noted. Chest tube trocar sites with forming scabs. Psychiatric: He has a normal mood and affect. His behavior is normal. Judgment and thought content normal. ASSESSMENT: Status post single-vessel coronary artery bypass grafting without the use of cardiopulmonary bypassby Dr. Blake Mcneil on 01/24/2019; past medical history: Reviewed Postprocedure day 1, status post ultrasound-guided left thoracentesis for persistent left pleural effusion by Dr. Gilmer Zelaya with 250 mL bloody return; Persistent increasing left pleural effusion, nonresponsive to diuretic therapy, improved post left thoracentesis on 02/03/2019 Dyspnea with exertion, orthopnea and paroxysmal nocturnal dyspnea, improved post left thoracentesis, patient ambulating full laps in unit Newly diagnosed diabetes mellitus type 2, followed by Dr. 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 He is a s/p CABG from 01/24 and return with sob and sharp stabbing pain. A consult has been placed with Dr Zelaya for a left thoracentesis todayif possible . Discharge Planning Living Arrangements: Spouse/significant other Support Systems: Spouse/significant other Assistance Needed: none Type of Residence: Private residence Prior to Admission Home Care Services: No * Kristin Walker PA-C - 02/03/2019 6:50 AM EST 02/03/19 Fernando Helton SUBJECTIVE: Patient sitting up to chair, orthopneic positioning, head and hands. Patient states he had a horrible night. States he rested for 1 hour otherwise is unable to sleep due to left chest wall pain discomfort with respiration. Complains of electrical and sharp stabbing pain. Complains of dyspnea with exertion, orthopnea and paroxysmal nocturnal dyspnea. OBJECTIVE: VITAL SIGNS: BP (!) 132/97 (BP Location: Left arm, Patient Position: Sitting) Pulse 85 Temp 98.1 F (36.7 C) (Oral) Resp 16 Ht 5' 6 Wt 111 kg (244 lb 11.4 oz) SpO2 94% BMI 39.50 kg/m Labs: Recent Labs 01/31/19 0848 02/02/19 0856 02/03/19 0422 NA 139 139 137 K 4.3 4.0 4.1 CL 105 106 104 BICARB 27 25 26 BUN 30* 26* 26* CREATININE 1.03 1.04 1.03 GLUCOSE 112* 131* 109* Recent Labs 02/02/19 1047 02/02/19 1207 02/03/19 0422 WBC 14.43* -- 14.25* HGB 11.4* 12.0* 12.1* HCT 34.8* 36.8* 36.8* PLT 555* -- 525* No results for input(s): INR in the last 72 hours. 02/02/2019 CTA pulmonary arteries: [id number] effusion with mild atelectasis in the left lungbase. Remaining lungs show hyperaeration with mild chronic changes. No evidence for acute mediastinal process or pulmonary embolism, it should be noted that there was limited opacification of the pulm onary arterial tree. No evidence for lymphadenopathy. Chronic and postsurgical changes noted. Current Medications: aspirin EC tablet 81 mg 81 mg, Oral, Daily Ordered atorvastatin (LIPITOR) tablet 20 mg 20 mg, Oral, Nightly Given, 20 mg at 02/02 2029 budesonide-formoterol (SYMBICORT) 160-4.5 mcg/actuation inhaler 2 puff 2 puff, Inhl, BID Given, 2 puff at 02/02 111 clopidogrel (PLAVIX) tablet 75 mg 75 mg, Oral, Daily Ordered docusate sodium (COLACE) capsule 100 mg 100 mg, Oral, Daily Ordered ferrous sulfate tablet 325 mg 325 mg, Oral, TID with meals Given, 325 mg at 02/02 1629 furosemide (LASIX) tablet 20 mg 20 mg, Oral, Daily Ordered ipratropium-albuterol (DUO-NEB) 0.5-2.5 mg/3 ml nebulizer solution 3 mL 3 mL, nebu, Q6H JUVENCIO Given, 3 mL at 02/03 013 metoprolol tartrate (LOPRESSOR) tablet 75 mg 75 mg, Oral, BID Given, 75 mg at 02/02 2030 pantoprazole (PROTONIX) EC tablet 40 mg 40 mg, Oral, Daily Ordered potassium chloride SA (K-DUR,KLOR-CON) CR tablet 20 mEq 20 mEq, Oral, Daily Given, 20 mEq at 02/02 162 rOPINIRole (REQUIP) tablet 2 mg 2 mg, Oral, Nightly Given, 2 mg at 02/02 2030 sodium chloride (PF) (NS) flush 5 mL 5 mL, IV, Q8H JUVENCIO Given, 5 mL at 02/03 0509 Physical Exam Constitutional: He is oriented to person, place, and time. He appears well- developed and well-nourished. No distress. Denies fever, chills, syncope nor near syncope. Complains of dyspnea, orthopnea and paroxysmal nocturnal dyspnea. Left chest wall discomfort with inspiration. HENT: Head: Normocephalic and atraumatic. Mouth/Throat: No oropharyngeal exudate. Eyes: Conjunctivae and EOM are normal. No scleral icterus. Neck: Normal range of motion. Neck supple. No thyromegaly present. Cardiovascular: Normal rate, regular rhythm, normal heart sounds and intact distal pulses. Exam reveals no gallop and no friction rub. No murmur heard. Normal sinus rhythm on telemetry Pulmonary/Chest: Effort normal. He has no wheezes. He has no rales. Breath sounds diminished throughout. Low tidal volume respirations secondary to pain Abdominal: Soft. Bowel sounds are normal. He exhibits distension. There is no abdominal tenderness.There is no rebound and no guarding. Last bowel movement: 02/01/2019 Genitourinary: Genitourinary Comments: Voiding without difficulty Musculoskeletal: Normal range of motion. General: Edema present. Comments: Generalized nonpitting edema to bilateral lower extremities rated bilateral PRASAD hose: On Neurological: He is alert and oriented to person, place, and time. Skin: Skin is warm and dry. No rash noted. He is not diaphoretic. No erythema. Sternal incision with edges well approximated. No erythema, edema, calor nor drainage noted. Small dogleg to lowermost aspect of incision from initial sternal incision with fine crusting. Psychiatric: Judgment and thought content normal. Flat affect, slightly agitated and disgruntled from discomfort. Emotional support provided and encouragement ASSESSMENT: Status post single-vessel coronary artery bypass grafting without the use of cardiopulmonary bypassby Dr. Blake Mcneil on 01/24/2019; past medical history: Reviewed Persistent increasing left pleural effusion, nonresponsive to diuretic therapy Dyspnea with exertion, orthopnea and paroxysmal nocturnal dyspnea Newly diagnosed diabetes mellitus type 2, followed by Dr. Melinda Fernandez, currently managed with diet and blood glucose check Acute leukocytosis, secondary to hypoventilation and reactive to left pleural effusion PLAN: N.p.o. since midnight Consultation placed to Dr. Gilmer Zelaya for left thoracentesis today if possible Plan for discharge after thoracentesis Hold Plavix CPT: 86110 * Arvin Gilliam II, MD - 02/02/2019 11:35 AM EST Readmitted for mild BARBA Not ambulating No cough Nofever NSR Sternum OK CXR: Poor effort Plan: Admit for obs Check ABG CT documented in this encounter* Jacob Cam PA-C - 02/06/2019 2:08 PM EST February 06, 2019 RE: Fernando Helton : 1970 He is a very pleasant 48-year-old male with past medical history significant for known CAD status post PCI, hypertension, COPD, ISAC with noncompliance with CPAP, morbid obesity and DM type II who underwent off-pump CABG x 1 on January 24, [address] Mcneil. Postoperatively he did haveacute kidney injury which improved with hydration with normal saline and adjusting his antihypertensive medications. He had an echocardiogram on January 27, 2019 that revealed an EF of 55%. He was discharged to home on postop day #5. He did get readmitted to the hospital on February 02, 2019 for shortness of breath and sharp left-sided chest wall pain with respiration. CT scan of chest revealed no PE but did reveal a left pleuraleffusion. He underwent thoracentesis by Dr. Zelaya on February 03, 2019 with 250 mL of blood-tinged fluid removed. He felt better the next day and was discharged to home. He was supposed to see us tomorrow but his called this morning stating that a scab came off ofthe bottom of his chest incision and she saw some clear fluid. We had the patient come in for evaluation today. He states today that overall he is feeling much better. He has no chest pain or shortness of breath. He does have some chest wall discomfort and spots at times but this is improving. He is ambulatingfairly well and actually walking up steps. He is getting up to 1200 on his incentive spirometer. His bowels moved this morning and he is voiding well. His blood sugars are running less than 200. He states that he had a scab at the bottom of his chest incision that came off this morning and it initially drained some clear fluid but now it looks dry. BP 124/81 Pulse 97 Temp 98.2 F (36.8 C) (Oral) Resp 17 Ht 5' 6 Wt 111.3 kg (245 lb 4.8 oz) SpO2 95% BMI 39.59 kg/m Admission weight 113.4 kg Discharge weight 112.5 kg Physical Exam Constitutional: He is oriented to person, place, and time. He appears well- developed and well-nourished. No distress. Cardiovascular: Normal rate, regular rhythm and normal heart sounds. Exam reveals no gallop and no friction rub. No murmur heard. Pulmonary/Chest: Effort normal and breath sounds normal. No respiratory distress. He has no wheezes. Musculoskeletal: General: No edema. Neurological: He is alert and oriented to person, place, and time. Skin: Skin is warm and dry. He is wearing his heart hugger. Chest incision looks great and is clean, dry, intact. His sternum is stable and without movement orclicking. At the bottom of the chest incision there is a tiny area where appears a scab came off but this area looks clean and dry. His chest tube site incisions are clean and dry with tiny scabs. Psychiatric: He has a normal mood and affect. His behavior is normal. Chest x-ray - sternal wires aligned and intact and lung ceballos are clear Labs - sodium 140, potassium 3.9, BUN 21, creatinine 1.04, glucose 108 Current Outpatient Medications: acetaminophen (TYLENOL) 325 MG tablet, Take 2 (two) tablets (650 mg total) by mouth every 6 (six) hours as needed for pain ., Disp: 30 tablet, Rfl: 0 albuterol 90 mcg/actuation inhaler, Inhale 2 puffs every 6 (six) hours as needed for wheezing or shortness of breath ., Disp: , Rfl: aspirin 81 MG EC tablet, Take 81 mg by mouth daily., Disp: , Rfl: atorvastatin (LIPITOR) 20 MG tablet, Take 1 (one) tablet (20 mg total) by mouth nightly ., Disp: 90tablet, Rfl: 0 blood sugar diagnostic (glucose blood) strips, Use as directed before breakfast and supper Dx E11.65 ., Disp: 100 each, Rfl: 6 blood-glucose meter kit, Use as instructed Dx E11.65 ., Disp: 1 each, Rfl: 0 budesonide-formoterol (Symbicort) 160-4.5 mcg/actuation inhaler, Inhale 2 puffs 2 (two) times a day., Disp: , Rfl: clopidogrel (PLAVIX) 75 mg tablet, Take 1 (one) tablet (75 mg total) by mouth daily ., Disp: 90 tablet, Rfl: 0 docusate sodium (COLACE) 100 MG capsule, Take 1 (one) capsule (100 mg total) by mouth daily Hold only for diarrhea ., Disp: 30 capsule, Rfl: 0 ferrous sulfate 325 (65 FE) MG tablet, Take 1 (one) tablet (325 mg total) by mouth 3 (three) times a day with meals ., Disp: 90 tablet, Rfl: 0 freestyle 28 gauge lancets, USE DIRECTED BID BEFORE BREAKFAST AND SUPPER, Disp: , Rfl: 6 furosemide (Lasix) 20 MG tablet, Take 1 (one) tablet (20 mg total) by mouth daily ., Disp: 30 tablet, Rfl: 0 gabapentin (NEURONTIN) 300 MG capsule, Take 1 (one) capsule (300 mg total) by mouth every 8 (eight)hours for 14 days ., Disp: 42 capsule, Rfl: 0 lancets Misc, Use as directed before breakfast and supper Dx E11.65 ., Disp: 100 each, Rfl: 6 metoprolol tartrate 75 mg Tab, Take 75 mg by mouth 2 (two) times a day ., Disp: 60 tablet, Rfl: 2 omeprazole (PRILOSEC) 40 MG capsule, Take 1 (one) capsule (40 mg total) by mouth daily ., Disp: 30 capsule, Rfl: 0 oxyCODONE-acetaminophen (PERCOCET) 5-325 mg per tablet, Take 1 (one) tablet by mouth every 4 (four)hours as needed for pain (Days supply per fill: 4.5) ., Disp: 28 tablet, Rfl: 0 potassium chloride SA (K-DUR,KLOR-CON) 20 MEQ tablet, Take 1 (one) tablet (20 mEq total) by mouth daily ., Disp: 30 tablet, Rfl: 0 povidone-iodine (BETADINE) 10 % ointment, Apply 1 application topically 2 (two) times a day ., Disp: , Rfl: rOPINIRole (REQUIP) 2 MG tablet, Take 2 mg by mouth nightly., Disp: , Rfl: At this time I instructed him to continue to wash his incisions with soap and water daily. I instructed him to apply Betadine ointment to the bottom of his chest incision twice daily and to cover this with a dry gauze until healed. I told him to call if he sees any active drainage from the chest incision. He will continue to use the incentive spirometer several times daily. I am going to continue the Lasix and potassium for now since he appears to be tolerating it. He will return to see us again in 1 week for a wound check and also to ensure that his kidneys are tolerating the Lasix and potassium and that the effusion has not redeveloped. He will call between now and then if he has any questions or concerns. Sincerely yours; Jacob Cam PA-C documented in this encounter* Kristin Walker PA-C - 02/13/2019 9:31 AM EST Kristin Walker PA-C 02/13/19 Fernando Helton Allergies Allergen Reactions Imdur [Isosorbide Mononitrate] Caused severe headache and had to stop it. BP 115/78 (BP Location: Left arm) Pulse 76 Temp 97.5 F (36.4 C) Ht 5' 6 Wt 110.7 kg (244 lb) SpO2 95% BMI 39.38 kg/m Chief Complaint Patient presents with Follow-up S/P CABG OP by Dr. Mcneil on 01/24/19 Follow-up S/P left thoracentesis by Dr. Zelaya on 02/03/19 Assessment: Fernando Helton is a 48-year-old male who is status post single-vessel coronary artery bypass grafting without the use of cardiopulmonary bypass by Dr. Blake Mcneil on 01/24/2019. He subsequently underwent left thoracentesis via ultrasound guidance by Dr. Gilmer Zelaya on 02/03/2019 for persistent left pleural effusion. At that time, he had 250 mL of bloody return. He continued to have improved symptoms of dyspnea with exertion as well as relief of pain thereafter. We did manage him with gabapentin, 300 mg 3 times daily at that time. Today he follows up and is accompanied by his spouse. He ambulates to the examination room without difficulty. He states his dyspnea with exertion has resolved, he has minimal left chest wall discomfort since left thoracentesis. We continue to diurese with Lasix 20 mg daily and potassium chloride 20 mEq daily. He states he is progressingthrough the recovery phase quite well and both he and his have optimistic outlook on his ongoing recovery at this time. Sternal incision is nearly completely healed with fine remnant scabbing. He has firmly adhered scabs to chest tube trocar sites. There is no erythema, edema, calor nor drainage noted from incision sites. His chest x-ray reveals sternal wires are aligned and intact. Lungs well expanded. He has retained abandoned temporary epicardial pacing wires present. The presence of a small left pleural effusion is observed. Mr. Helton states he has stopped taking gabapentin because he does not care for the way that he feels when taking it. Specifically, he states he feels lethargic and sleepy. Sternal incision photodocumentation obtained and reflected herein. Plan: At this time, I have advised Mr. Helton to continue to use incentive spirometer 10 times everyhour while awake. Continue current diuretic therapy. Continue strict sternal precautions and progress through the recovery notebook guidelines as directed. Contact the office of Dr. Blake Mcneil or any member of our team over the course of the remaining weeks should he have any questions or concerns regarding his ongoing recovery from heart surgery. Both the patient and his spouse verbalized understanding of same. His next follow-up appointment is on February 28, 2019 at 11:00 AM for his final 5-week appointment. We will obtain chest x-ray, serum laboratory studies and EKG at that time. He didhave a nasal swab follow-up during this appointment. Results pending. Physical Exam Constitutional: General: He is not in acute distress. Appearance: Normal appearance. He is normal weight. He is not ill-appearing, toxic-appearing or diaphoretic. Comments: Denies fever, chills, dyspnea, orthopnea, paroxysmal nocturnal dyspnea, chest pain, syncope nor near syncope. Reports nearly resolved left chest wall discomfort. HENT: Head: Normocephalic and atraumatic. Nose: Nose normal. No congestion. Mouth/Throat: Mouth: Mucous membranes are moist. Pharynx: Oropharynx is clear. Eyes: General: No scleral icterus. Extraocular Movements: Extraocular movements intact. Pupils: Pupils are equal, round, and reactive to light. Neck: Musculoskeletal: Normal range of motion and neck supple. No neck rigidity. Cardiovascular: Rate and Rhythm: Normal rate and regular rhythm. Pulses: Normal pulses. Heart sounds: Normal heart sounds. No murmur. No friction rub. No gallop. Pulmonary: Effort: Pulmonary effort is normal. No respiratory distress. Breath sounds: Normal breath sounds. No stridor. No wheezing or rhonchi. Musculoskeletal: Normal range of motion. General: No swelling. Skin: General: Skin is warm and dry. Capillary Refill: Capillary refill takes less than 2 seconds. Neurological: General: No focal deficit present. Mental Status: He is alert and oriented to person, place, and time. Mental status is at baseline. Psychiatric: Mood and Affect: Mood normal. Behavior: Behavior normal. Thought Content: Thought content normal. Judgment: Judgment normal. Current Outpatient Medications: acetaminophen (TYLENOL) 325 MG tablet, Take 2 (two) tablets (650 mg total) by mouth every 6 (six) hours as needed for pain ., Disp: 30 tablet, Rfl: 0 albuterol 90 mcg/actuation inhaler, Inhale 2 puffs every 6 (six) hours as needed for wheezing or shortness of breath ., Disp: , Rfl: aspirin 81 MG EC tablet, Take 81 mg by mouth daily., Disp: , Rfl: atorvastatin (LIPITOR) 20 MG tablet, Take 1 (one) tablet (20 mg total) by mouth nightly ., Disp: 90tablet, Rfl: 0 blood sugar diagnostic (glucose blood) strips, Use as directed before breakfast and supper Dx E11.65 ., Disp: 100 each, Rfl: 6 blood-glucose meter kit, Use as instructed Dx E11.65 ., Disp: 1 each, Rfl: 0 budesonide-formoterol (Symbicort) 160-4.5 mcg/actuation inhaler, Inhale 2 puffs 2 (two) times a day., Disp: , Rfl: clopidogrel (PLAVIX) 75 mg tablet, Take 1 (one) tablet (75 mg total) by mouth daily ., Disp: 90 tablet, Rfl: 0 docusate sodium (COLACE) 100 MG capsule, Take 1 (one) capsule (100 mg total) by mouth daily Hold only for diarrhea ., Disp: 30 capsule, Rfl: 0 ferrous sulfate 325 (65 FE) MG tablet, Take 1 (one) tablet (325 mg total) by mouth 3 (three) times a day with meals ., Disp: 90 tablet, Rfl: 0 freestyle 28 gauge lancets, USE DIRECTED BID BEFORE BREAKFAST AND SUPPER, Disp: , Rfl: 6 furosemide (Lasix) 20 MG tablet, Take 1 (one) tablet (20 mg total) by mouth daily ., Disp: 30 tablet, Rfl: 0 lancets Misc, Use as directed before breakfast and supper Dx E11.65 ., Disp: 100 each, Rfl: 6 metoprolol tartrate 75 mg Tab, Take 75 mg by mouth 2 (two) times a day ., Disp: 60 tablet, Rfl: 2 omeprazole (PRILOSEC) 40 MG capsule, Take 1 (one) capsule (40 mg total) by mouth daily ., Disp: 30 capsule, Rfl: 0 potassium chloride SA (K-DUR,KLOR-CON) 20 MEQ tablet, Take 1 (one) tablet (20 mEq total) by mouth daily ., Disp: 30 tablet, Rfl: 0 povidone-iodine (BETADINE) 10 % ointment, Apply 1 application topically 2 (two) times a day ., Disp: , Rfl: rOPINIRole (REQUIP) 2 MG tablet, Take 2 mg by mouth nightly., Disp: , Rfl: Fernando was seen today for follow-up and follow-up. Diagnoses and all orders for this visit: S/P CABG (coronary artery bypass graft) Return in about 15 days (around 02/28/2019), or 11:00 am, for Next scheduled follow up. documented in this encounter* Titley, Kristin Abraham PA-C - 02/18/2019 9:32 AM EST 02/18/19 Fernando Hernandez Helton S/P CABG x 1, without the use of cardiopulmonary bypass by Dr. Neo Mcneil on 01/24/19. Received call from patient's on 02/17/19 evening concerned that her has not slept at allfor the last 3 days. She states he is not napping during the day either. She has been giving him melatonin OTC without results and wanted to know what else he could take. She denied any other concerns besides his decreased appetite. Hawa just states that he is very crabby given lack of sleep. Plan: I advised patient's to continue melatonin although she states it wasn't helping. Additionally instructed her have him take OTC Benadryl as directed. Discussed with that sleep disturbances and decreased appetite are two of the most common complaints postoperatively. Explained that we do not prescribe sleep aids. Told patient's I would discuss with Dr. Mcneil and call her in the morning. Dr. Neo Mcneil updated on patient's complaints this morning and agreed with recommendations. He wanted me to call patient and confirm that he wasn't having orthopnea, PND, or other complaints thatwere causing his sleep disturbances. I called and left voicemails on both his and his 's phonesasking to call if having other symptoms at 0930. documented in this encounter* Kristin Walker PA-C - 02/21/2019 9:19 AM EST Kristin Walker PA-C 02/21/19 Fernando Helton Allergies Allergen Reactions Imdur [Isosorbide Mononitrate] Caused severe headache and had to stop it. BP 128/84 Pulse 77 Temp 97.8 F (36.6 C) Ht 5' 6 Wt 110.2 kg (243 lb) SpO2 97% BMI 39.22 kg/m Chief Complaint Patient presents with Follow-up S/P CABG x [address] Neo Mcneil on 01/24/19 Wound Check Patient complains of lower sternal incision discomfort Assessment: Mr. Fernando Helton is a pleasant 48-year-old male who is status post single-vessel coronary artery bypass grafting without the use of cardiopulmonary bypass by Dr. Blake Mcneil on 01/24/2019. Mr. Helton has been followed in the outpatient setting by cardiac surgery. Briefly, he was readmitted to the cardiovascular intensive care unit on 02/02/2019 with complaints of dyspnea withexertion and while at rest with increasing left pleural effusion on chest x-ray. He underwent ultrasound-guided left thoracentesis by Dr. Gilmer Zelaya on 02/03/2019 and was ultimately discharged to home on the following day, 02/04/2019. He continues on Lasix diuretic therapy for ongoing management of pleural effusions. The patient's spouse contacted cardiothoracic surgery this morning with concerns of calor and tenderness to the mid aspect of the sternal incision. Patient is advised to report to the medical office building for further evaluation and examination. Chest x-ray and labs prior to his visit. Mr. Helton is able to ambulate to the examination room on his own accord and does not require the use of a wheelchair. He is sitting in the examination chair without any obvious visible distress. Mr. Helton states that it is difficult for him to convey how he is feeling and looks to his spouse for help to elaborate on his current symptomology. Mr. Helton states he began sweating this morning and his spouse states he she notes that he has trouble breathing. He does complain of congestion and possible occasional chills however he is unable to give a duration of the symptoms. He states he has an overall feeling of unwellness. His does state that Mr. Helton started to cough and has been taking Mucinex of recent however has stopped due to resolution of his coughing. Physical assessment of the sternal incision as well as photodocumentation is reflected herein. His sternal incision is completely healed. There is no erythema, edema nor drainage observed. The patient and spouse report calor however I am unable to discern the same with examination. His chest tube trocar sites have firmly adhered scabs. Again there is no erythema, edema, calor nor drainage noted from sites. His chest x-ray reveals improving and nearly resolved left pleural effusion. The presenceof abandoned temporary epicardial pacing wires are present. Sternal wires are aligned and intact and appear unchanged from prior chest x-ray films. Lungs are clear to auscultation, anterior and posterior. His basic metabolic panel is essentially unremarkable. His BUN and creatinine today are 22 and1.05 respectively, consistent with his baseline back in November 2018 of 24 and 1.20. On CBC, he continues to have an elevated white blood cell count, today he is at 14.18. He is a known history of chronic leukocytosis which was evaluated previously by Dr. Trini Lofton back in November 2016 and isfollowed by his primary care provider, Dr. Moises Patel. His physical examination is otherwise unremarkable. He is afebrile with a temperature of 97.8. Oxygen saturation 97%. His weight today is 110.2 kg which is approximately 3 kg below his admission weight at the time of surgery of 113.4 kg. Plan: At this time, we will continue to monitor Mr. Helton for any changes and have advised him to contact our office should he have any questions or concerns or any new onset of symptoms. There does not appear to be any defining symptoms and diagnoses at this time. He is scheduled to follow-up again with cardiac surgery for his 5-week follow-up appointment on 02/28/2019 11:00 AM. I have advised Mr. Helton that he may take Claritin or Zyrtec should he begin to experience congestion, he may resume Mucomyst 600 mg twice daily for coughing. Continue to take acetaminophen as needed for discomfort. Continue to monitor temperature, weight and vital signs. Contact our office should he have any questions or concerns or any change in symptoms. Patient and spouse verbalized understanding of same. Emotional support and encouragement provided. Na+ K+ Cl- HCo3- BUN Cr Glu INR 139 4. 106 29 22 1.05 110 WBC Hb Hct [place] 14.18 12.7 39.8 388 Physical Exam Constitutional: General: He is not in acute distress. Appearance: Normal appearance. He is normal weight. He is not ill-appearing, toxic-appearing or diaphoretic. Comments: Denies fever, chest pain, syncope nor near syncope. Complains of occasional diaphoresis this morning, occasional dyspnea with exertion, congestion as well as chills. HENT: Head: Normocephalic and atraumatic. Nose: Nose normal. Mouth/Throat: Mouth: Mucous membranes are moist. Pharynx: Oropharynx is clear. Eyes: General: No scleral icterus. Extraocular Movements: Extraocular movements intact. Conjunctiva/sclera: Conjunctivae normal. Pupils: Pupils are equal, round, and reactive to light. Neck: Musculoskeletal: Normal range of motion and neck supple. Cardiovascular: Rate and Rhythm: Normal rate and regular rhythm. Pulses: Normal pulses. Heart sounds: No murmur. No friction rub. No gallop. Pulmonary: Effort: Pulmonary effort is normal. No respiratory distress. Breath sounds: Normal breath sounds. No stridor. No wheezing, rhonchi or rales. Comments: Respirations even and unlabored. No obvious visible distress. Abdominal: Comments: Last bowel movement: 02/21/2019 Genitourinary: Comments: Voiding without difficulty Musculoskeletal: Normal range of motion. General: Tenderness present. No swelling. Comments: Slight tenderness with palpation at mid aspect of sternal incision, left chest wall. Skin: General: Skin is warm and dry. Capillary Refill: Capillary refill takes less than 2 seconds. Neurological: General: No focal deficit present. Mental Status: He is alert and oriented to person, place, and time. Mental status is at baseline. Psychiatric: Mood and Affect: Mood normal. Behavior: Behavior normal. Thought Content: Thought content normal. Judgment: Judgment normal. Current Outpatient Medications: acetaminophen (TYLENOL) 325 MG tablet, Take 2 (two) tablets (650 mg total) by mouth every 6 (six) hours as needed for pain ., Disp: 30 tablet, Rfl: 0 albuterol 90 mcg/actuation inhaler, Inhale 2 puffs every 6 (six) hours as needed for wheezing or shortness of breath ., Disp: , Rfl: aspirin 81 MG EC tablet, Take 81 mg by mouth daily., Disp: , Rfl: atorvastatin (LIPITOR) 20 MG tablet, Take 1 (one) tablet (20 mg total) by mouth nightly ., Disp: 90tablet, Rfl: 0 clopidogrel (PLAVIX) 75 mg tablet, Take 1 (one) tablet (75 mg total) by mouth daily ., Disp: 90 tablet, Rfl: 0 docusate sodium (COLACE) 100 MG capsule, Take 1 (one) capsule (100 mg total) by mouth daily Hold only for diarrhea ., Disp: 30 capsule, Rfl: 0 ferrous sulfate 325 (65 FE) MG tablet, Take 1 (one) tablet (325 mg total) by mouth 3 (three) times a day with meals ., Disp: 90 tablet, Rfl: 0 furosemide (Lasix) 20 MG tablet, Take 1 (one) tablet (20 mg total) by mouth daily ., Disp: 30 tablet, Rfl: 0 metoprolol tartrate 75 mg Tab, Take 75 mg by mouth 2 (two) times a day ., Disp: 60 tablet, Rfl: 2 omeprazole (PRILOSEC) 40 MG capsule, Take 1 (one) capsule (40 mg total) by mouth daily ., Disp: 30 capsule, Rfl: 0 potassium chloride SA (K-DUR,KLOR-CON) 20 MEQ tablet, Take 1 (one) tablet (20 mEq total) by mouth daily ., Disp: 30 tablet, Rfl: 0 rOPINIRole (REQUIP) 2 MG tablet, Take 2 mg by mouth nightly., Disp: , Rfl: blood sugar diagnostic (glucose blood) strips, Use as directed before breakfast and supper Dx E11.65 ., Disp: 100 each, Rfl: 6 blood-glucose meter kit, Use as instructed Dx E11.65 ., Disp: 1 each, Rfl: 0 budesonide-formoterol (Symbicort) 160-4.5 mcg/actuation inhaler, Inhale 2 puffs 2 (two) times a day., Disp: , Rfl: freestyle 28 gauge lancets, USE DIRECTED BID BEFORE BREAKFAST AND SUPPER, Disp: , Rfl: 6 lancets Misc, Use as directed before breakfast and supper Dx E11.65 ., Disp: 100 each, Rfl: 6 Fernando was seen today for follow-up and wound check. Diagnoses and all orders for this visit: S/P CABG (coronary artery bypass graft) Return in about 1 week (around 02/28/2019) for Next scheduled follow up. documented in this encounter* Kristin Walker PA-C - 02/26/2019 2:03 PM EST 02/26/19 Fernando Helton Procedure: Single-vessel coronary artery bypass grafting without the use of cardiopulmonary bypass by Dr. Blake Mcneil on 01/24/2019 Assessment: Mr. Fernando Helton is a pleasant 48-year-old male who is status post single-vessel coronary artery bypass grafting using left internal mammary artery to left anterior descending coronary artery without the use of cardiopulmonary bypass by Dr. Blake Mcneil on 01/24/2019. He is seen today in scheduled routine 5-week follow-up appointment with Dr. Blake Mcneil and is accompanied by his spouse Hawa. Mr. Helton has been followed closely in the outpatient setting by cardiothoracic surgery. In brief review, his main complaint continues to be ongoing left posterior pleuritic/chest wall intermittent discomfort. During the immediate postoperative course, he had persistent left pleural effusion which ultimately was drained by Dr. Gilmer Zelaya on 02/03/2019, after a brief readmission to CVICU on 02/02/2019, due to complaints of increasing dyspnea even while at rest. He continues to improve daily with near resolution of left pleural effusion with diuretic therapy, Lasix 20 mgdaily and potassium chloride 20 mEq daily. We did prescribe gabapentin at that time of his readmission on 02/02/2019 however Mr. Helton states he does not feel well while taking gabapentin and has stopped taking same. He was seen in the emergency department last evening on 02/25/2019 with complaints of left chest wall discomfort, sudden onset development of dyspnea as well as left pleuritic pain. CT angiogram of the chest revealed no evidence of pulmonary embolism, small left pleural effusion with improved aeration overall of the left lung base. CT does note slightly widened irregular margins of the bone edges of the sternum, however during physical assessment by Dr. Blake Mcneil, the sternumis stable with palpation without clicking, shifting nor any other sternal movement or discomfort with same. Physical examination reveals sternal incision is completely healed with fine remnant scabbing to chest tube trocar sites. Lungs are clear to auscultation, anterior and posterior. Mr. Helton is able toambulate to the examination room on his own accord without the assistance of wheelchair or other ambulatory devices. He is wearing his heart hugger. CT angiogram obtained on 02/25/2019 again demonstrates resolving left pleural effusion with lungs well aerated. EKG in the emergency departments normalsinus rhythm, 83 bpm. Plan: At this time, Dr. Blake Mcneil conveyed to Mr. Helton that he believes his ongoing pleuritic discomfort could likely be related to ongoing muscle spasm. Mr. Helton states that his discomfort is at the region of thoracentesis site. We have advised that lifting restrictions are maintained at 10 pounds over the course of the next 4 weeks. Do not resume driving privileges until discomfort of back/chest wall pain has resolved and no longer taking Robaxin. He will need to follow up with cardiology, cardiac rehab and related appointments as previously scheduled. From a cardiothoracic surgery standpoint, Dr. Noe Mcneil and our team will no longer need to follow up with the patient and is released back to his primary care provider for medical therapy. Contact the office of Dr. Mcneil's team to report update on chest wall/back pain resolution. Robaxin 750 mg po at HS for 15 daysand has been prescribed and called to his pharmacy. Mr. Mrs. Helton verbalized understanding of sameand agree with the aforementioned plan. Current vital signs at this appointment are as follows: BP 129/88 Pulse 93 Temp 98.4 F (36.9 C) Resp 16 Ht 5' 6 Wt 109.1 kg (240 lb 8 oz) SpO2 93% BMI 38.82 kg/m . Physical Exam Constitutional: He is oriented to person, place, and time. He appears well- developed and well-nourished. No distress. Denies fever, chills, dyspnea, orthopnea, paroxysmal nocturnal dyspnea, chest pain, syncope nor near syncope. Complains of intermittent to ongoing pleuritic chest discomfort of the posterior left chest wall, now at previous thoracentesis site. HENT: Head: Normocephalic and atraumatic. Eyes: Pupils are equal, round, and reactive to light. EOM are normal. No scleral icterus. Neck: Normal range of motion. Neck supple. No tracheal deviation present. No thyromegaly present. Cardiovascular: Normal rate, regular rhythm, normal heart sounds and intact distal pulses. Exam reveals no gallop and no friction rub. No murmur heard. EKG: Normal sinus rhythm, 83 bpm Pulmonary/Chest: Effort normal and breath sounds normal. No respiratory distress. He has no wheezes. He has no rales. He exhibits no tenderness. Sternum stable with palpation without clicking, shifting nor any other sternal movement. Abdominal: Soft. Bowel sounds are normal. He exhibits no distension. There is no abdominal tenderness. There is no rebound. Last bowel movement: 02/26/2019 Genitourinary: Genitourinary Comments: Voiding without difficulty Musculoskeletal: Normal range of motion. General: No edema. Neurological: He is alert and oriented to person, place, and time. Skin: Skin is warm and dry. He is not diaphoretic. Current Outpatient Medications: acetaminophen (TYLENOL) 325 MG tablet, Take 2 (two) tablets (650 mg total) by mouth every 6 (six) hours as needed for pain ., Disp: 30 tablet, Rfl: 0 albuterol 90 mcg/actuation inhaler, Inhale 2 puffs every 6 (six) hours as needed for wheezing or shortness of breath ., Disp: , Rfl: aspirin 81 MG EC tablet, Take 81 mg by mouth daily., Disp: , Rfl: atorvastatin (LIPITOR) 20 MG tablet, Take 1 (one) tablet (20 mg total) by mouth nightly ., Disp: 90tablet, Rfl: 0 budesonide-formoterol (Symbicort) 160-4.5 mcg/actuation inhaler, Inhale 2 puffs 2 (two) times a day., Disp: , Rfl: clopidogrel (PLAVIX) 75 mg tablet, Take 1 (one) tablet (75 mg total) by mouth daily ., Disp: 90 tablet, Rfl: 0 furosemide (Lasix) 20 MG tablet, Take 1 (one) tablet (20 mg total) by mouth daily ., Disp: 30 tablet, Rfl: 0 metoprolol tartrate 75 mg Tab, Take 75 mg by mouth 2 (two) times a day ., Disp: 60 tablet, Rfl: 2 omeprazole (PRILOSEC) 40 MG capsule, Take 1 (one) capsule (40 mg total) by mouth daily ., Disp: 30 capsule, Rfl: 0 potassium chloride SA (K-DUR,KLOR-CON) 20 MEQ tablet, Take 1 (one) tablet (20 mEq total) by mouth daily ., Disp: 30 tablet, Rfl: 0 rOPINIRole (REQUIP) 2 MG tablet, Take 2 mg by mouth nightly., Disp: , Rfl: blood sugar diagnostic (glucose blood) strips, Use as directed before breakfast and supper Dx E11.65 ., Disp: 100 each, Rfl: 6 blood-glucose meter kit, Use as instructed Dx E11.65 ., Disp: 1 each, Rfl: 0 freestyle 28 gauge lancets, USE DIRECTED BID BEFORE BREAKFAST AND SUPPER, Disp: , Rfl: 6 gabapentin (NEURONTIN) 300 MG capsule, Take 300 mg by mouth 3 (three) times a day as needed filled 02-04-19 #42 for 14 days ., Disp: , Rfl: lancets Misc, Use as directed before breakfast and supper Dx E11.65 ., Disp: 100 each, Rfl: 6 documented in this encounter* Kristin Walker PA-C - 03/05/2019 8:22 AM EST Call received from patient spouse, Hawa. Reports patient is no longer taking Robaxin for left chest wall/back pain. Patient has been taking Motrin with positive results. Denies pain, dyspnea, orthopnea, paroxysmal nocturnal dyspnea, chest pain, syncope nor near syncope. She states Mr. Helton is feeling well and is requesting lift of driving restrictions at this time. I have advised Mrs. Helton that as long as the patient is no longer taking Robaxin or any other muscle relaxant medications that may alter his driving and his discomforts have completely resolved, he may resume driving privileges.He does need to continue to wear his heart hugger for the remaining weeks as previously discussed. documented in this encounter* Torie Westbrook, PT - 03/11/2019 8:20 AM EST [facility] [address] [place], [place] [id number] Office 03/11/2019 Patient: Fernando Helton : 1970 Primary Diagnosis: CABG The Cardiac Rehab Staff had the recent pleasure of meeting Fernando Helton for a consultation regardingoutpatient cardiac rehabilitation. As you recall, Mr. Helton has a history of PA 2012, PA/ cardiac arrest 2014, and CHF. He recently presented with anterior wall PA. Cardiac cath 01/20/19: EF 45%; occ mid LAD stent. He underwent CABG x 1 on 01/24/19. Risks and benefits associated with a cardiac rehabprogram were discussed along with his risk factors and a preliminary treatment plan and goals for the program. The Cardiac Rehab Staff will maintain contact with you throughout the 12-week program. Thank you for allowing Mr. Helton to participate in [facility] comprehensive risk reduction program. Nutrition: GOAL: Recommend RD consultation for dietary intervention to aid with lipid control, diabetes control, and weight management. Weight Loss: GOAL: 10-12 lbs. over 3 months for a target weight of 230 lbs. Our weight loss strategies will result in long-term goal of BMI less than 25 and a waist circumference of less than 35 /40 . Lipids: GOAL: Total cholesterol <200 mg/dL, LDL <70 mg/dL, HDL >45 mg/dL, TG <150 mg/dL. Blood Pressure: GOAL: Less than 120/80. BP 122/66 at today s visit. Recommend restriction of saturated fat, caloric intake and sodium intake and titration of medications to maintain BP < 120/80. Knowledge: GOAL: Individual and group education regarding CAD risk factors and long-term managementplans. Functional Capacity: GOAL: 3-5 METs. Exercise 4 6 days per week as outlined in the exercise prescription reviewed and approved by our biomedical service engineer. Psychosocial: Patient scored a 3 on the PHQ9 Survey. Score indicates minimal depression. Patient may not need depression treatment. This score will be included on his initial ITP and reviewed by our physicians. The Cardiac Rehab staff will continue to monitor the patient hemodynamically as well as electrocardiographically. Please let me know if you have any questions. I appreciate the opportunity to be of assistance in this patient's care. Sincerely, Torie Westbrook MS, ACS-CEP Supervising Physician: Dr. Au documented in this encounter* Torie Westbrook, PT - 03/17/2019 7:57 AM EST Cardiac Rehab Session. Ref to daily session report in Procedures. Supervising Physician: Dr. Durán documented in this encounter* Carlo Mercedes MD - 04/03/2019 3:40 PM EST PC-patient is here for follow-up visit after single-vessel CABG (SPARKS to LAD) SUN'AQ-patient is a pleasant 48-year-old man with known history of coronary artery disease and prior PCI's to proximal LAD. He was seen as an inpatient consult on 01/18/2019 when he had presented with complaints of episodes of chest discomfort suggestive of angina. Subsequently a coronary angiogram was done which showed occluded proximal LAD stent. Patient underwent SPARKS to LAD during that hospitalization. Post bypass echocardiogram shows LVEF of 55% Post revascularization patient has done well. He reports complete resolution of chest pain and shortness of breath episodes. He also reports that he feels much more energy in terms of being able to do physical activities. Does not report any complaints at this visit. Past Medical History: Diagnosis Date Acute respiratory failure ([facility]) 09/2014 requring mechanical ventilation Anxiety Bilateral lower extremity edema R > L CAD (coronary artery disease) CAD s/p C with 1 stent in left main 07/2012, replaced 09/2014 Cardiac arrest with ventricular fibrillation ([facility]) 09/25/2014 CHF (congestive heart failure), NYHA class I, chronic, diastolic ([facility]) Chronic sinusitis Claudication of right lower extremity ([facility]) Cluster headache COPD (chronic obstructive pulmonary disease) ([facility]) 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 Bev Tolentino Metabolic syndrome Mood disorder ([facility]) Nasal fracture Obstructive sleep apnea noncompliant with CPAP Orthostatic dizziness with intermittent syncope Pericarditis 02/25/07; 09/23/17 Pneumomediastinum ([facility]) 01/12/2007 secondary to severe coughing spell & ruptured alveoli Rotator cuff tear, right 1997 s/p repair SLAP tear of shoulder 2011 left - s/p surgery to place [address] elevation myocardial infarction (STEMI) of anterolateral wall ([facility]) 05/09/2012 anterolateral STEMI involving left anterior descending coronary artery ([facility]) 09/25/2014 anterior Superficial thrombophlebitis of right upper extremity 12/26/2006 Past Surgical History: Procedure Laterality Date APPENDECTOMY 1998 BONE MARROW BIOPSY W/ ASPIRATION Left 11/27/2016 L posterior iliac crest; Dr. Bev Tolentino CABG OFF PUMP N/A 01/24/2019 Procedure: Coronary Artery Bypass graft x1 with Left Internal Mammary Artery graft, OFF PUMP; Surgeon: Neo Mcneil MD; Location: [facility]; Service: Cardiothoracic CARDIAC CATHETERIZATION 09/24/2014 Segment LV dysf., mild to moderate LV systolic impairment, moderate LV diastolic dysf.; single vessel CAD by Dr. Whitney CARDIAC CATHETERIZATION 05/09/2012 Emergent. Severe LVSD EF 20%; single vessel CAD with acute thrombotic occlusion of left anterior descending by Dr. Rowland CARDIAC CATHETERIZATION Left 09/28/2015 Dr. 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 Normal LV end-diastolic pressure. CARDIAC CATHETERIZATION 01/14/[address] Phillips CARDIAC CATHETERIZATION 11/24/[address] Rowland COLONOSCOPY 05/27/2015 CORONARY ANGIOPLASTY 12/25/2014 PCI with balloon angioplasty by Dr. Whitney of jailed diagonal CORONARY STENT PLACEMENT 05/09/2012 Drug eluted Alpine stent in the left anterior descending by Dr. Rowland CORONARY STENT PLACEMENT 09/24/2014 Subacute stent thrombosis by Dr. Whitney. This may be in the setting of areas of restenosis within the LAD stent CV IR INTERVENTIONAL RADIOLOGY Left 02/03/2019 Procedure: IR THORACENTESIS LEFT; Surgeon: Gilmer Zelaya MD; Location: IR LAB; Service: Interventional Radiology ETHMOIDECTOMY Bilateral 06/25/[address] Gaitan HC LEFT HEART CATH N/A 01/20/2019 Procedure: Left Heart Cath; Surgeon: Carlo Mercedes MD; Location: [facility]; Service: Cardiovascular IABP placement 05/09/[address] Rowland NASAL SEPTUM SURGERY 06/25/[address] Gaitan ROTATOR CUFF REPAIR Right 1997 SHOULDER ARTHROSCOPY W/ SUPERIOR LABRAL ANTERIOR POSTERIOR REPAIR Left 11/2012 @ [facility] SHOULDER ARTHROSCOPY W/ SUPERIOR LABRAL ANTERIOR POSTERIOR REPAIR Left 11/22/2011 shoulder arthroscopic anterior capsulorraphy, SLAP repair, acromioplasty, limited debridement of labrum and rotator cuff by Dr. Sexton SINUSOTOMY Bilateral 06/25/2007 with removal of tissue by Dr. Gaitan UPPER GASTROINTESTINAL ENDOSCOPY 2016 Social History Socioeconomic History Marital status: Spouse name: Not on file Number of children: 3 Years of education: Not on file Highest education level: Not on file Occupational History Not on file Social Needs Financial resource strain: Not on file Food insecurity Worry: Not on file Inability: Not on file Transportation needs Medical: Not on file Non-medical: Not on file Tobacco Use Smoking status: Former Smoker Packs/day: 1.00 Years: 35.00 Pack years: 35.00 Last attempt to quit: 05/12/2016 Years since quittin.8 Smokeless tobacco: Never Used Tobacco comment: Quit 05/12/18 Substance and Sexual Activity Alcohol use: Yes Alcohol/week: 0.0 standard drinks Comment: socially Drug use: Not Currently Types: Marijuana Sexual activity: Not on file Lifestyle Physical activity Days per week: Not on file Minutes per session: Not on file Stress: Not on file Relationships Social connections Talks on phone: Not on file Gets together: Not on file Attends pentecostal service: Not on file Active member of club or organization: Not on file Attends meetings of clubs or organizations: Not on file Relationship status: Not on file Other Topics Concern Not on file Social History Narrative Not on file Family History Problem Relation Age of Onset Heart attack Father Heart disease Father s/p cabg x 4 in his 40s Coronary artery disease Father Hypertension Father Hyperlipidemia Father Heart disease Mother Stroke Mother 64 Hyperlipidemia Mother Coronary artery disease Other Cancer Paternal Uncle unknown cancer Hypertension Sister Diabetes Brother Heart disease Brother s/p PCI Melanoma Brother Current Outpatient Medications Medication Sig Dispense Refill albuterol 90 mcg/actuation inhaler Inhale 2 puffs every 6 (six) hours as needed for wheezing or shortness of breath . aspirin 81 MG EC tablet Take 81 mg by mouth daily. atorvastatin (LIPITOR) 20 MG tablet Take 1 (one) tablet (20 mg total) by mouth nightly . 90 tablet 0 blood sugar diagnostic (glucose blood) strips Use as directed before breakfast and supper Dx E11.65. 100 each 6 blood-glucose meter kit Use as instructed Dx E11.65 . 1 each 0 budesonide-formoterol (Symbicort) 160-4.5 mcg/actuation inhaler Inhale 2 puffs 2 (two) times a day . clindamycin (CLEOCIN) 300 MG capsule Take 300 mg by mouth 3 (three) times a day . clopidogrel (PLAVIX) 75 mg tablet Take 1 (one) tablet (75 mg total) by mouth daily . 90 tablet 0 freestyle 28 gauge lancets USE DIRECTED BID BEFORE BREAKFAST AND SUPPER 6 furosemide (Lasix) 20 MG tablet Take 1 (one) tablet (20 mg total) by mouth daily . 30 tablet 11 lancets Misc Use as directed before breakfast and supper Dx E11.65 . 100 each 6 metoprolol tartrate 75 mg Tab Take 75 mg by mouth 2 (two) times a day . 60 tablet 2 omeprazole (PRILOSEC) 40 MG capsule Take 1 (one) capsule (40 mg total) by mouth daily . 30 capsule 0 potassium chloride (K-DUR) 10 MEQ CR tablet Take 10 mEq by mouth daily . rOPINIRole (REQUIP) 2 MG tablet Take 2 mg by mouth nightly. traZODone (DESYREL) 50 MG tablet Take 50 mg by mouth nightly as needed . No current facility-administered medications for this visit. Allergies: Imdur [isosorbide mononitrate] Review of system: All other system reviewed are negative Exam- BP 130/85 (BP Location: Left arm) Pulse 86 Ht 5' 6 Wt 117.9 kg (260 lb) SpO2 95% BMI 41.97 kg/m Body mass index is 41.97 kg/m . General- sitting comfortably, no acute cardiorespiratory distress HEENT- no pallor, no icterus, no cyanosis Neck- no JVD, no bruit Chest- bilateral clear breath sounds, no crackles, no rhonchi CVS- S1S2 normal, no rub, no murmur Swelling - none Skin/Ulcer - normal Neuro- alert oriented x 3 Pertient labs Lab Results Component Value Date WBC 15.47 (H) 02/25/2019 HGB 13.0 (L) 02/25/2019 HCT 39.9 (L) 02/25/2019 MCV 81.4 02/25/2019 EXTMCV 84.5 01/09/2018 PLT 406 (H) 02/25/2019 RBC 4.90 02/25/2019 GLUCOSE 104 (H) 02/25/2019 CALCIUM 8.6 02/25/2019 NA 138 02/25/2019 K 3.7 02/25/2019 CL 105 02/25/2019 BUN 20 02/25/2019 CREATININE 1.10 02/25/2019 ALT 35 01/27/2019 AST 39 01/27/2019 ALKPHOS 41 01/27/2019 BILITOT 0.8 01/27/2019 INR 1.0 02/25/2019 PROTIME 12.5 02/25/2019 PTT 28 01/24/2019 Lab Results Component Value Date TROPONINI <15 02/25/2019 TROPONINI <15 01/29/2019 TROPONINI 28 01/27/2019 NTPROBNP 227 02/25/2019 DDIMER <0.27 01/17/2019 A/P- Single-vessel CAD with history of PCI to left anterior descending (LAD) In-stent occlusion-status post SPARKS to LAD on 01/24/2019 Clinically CCS class I Obesity Ex-smoker Plan - Continue aspirin 81 mg a day lifelong, Plavix 75 mg a day for 1 year - Continue Lipitor 20 mg daily, metoprolol 75 mg twice a day and Lasix 20 mg daily - Decrease potassium supplement to 10 mEq a day and check basic metabolic panel next week - Advised patient to lose weight and limit salt intake - Return to clinic in 6 months or on as-needed basis Electronically Signed by: Carlo Mercedes M.D 04/03/19 3:40 PM documented in this encounter* Anita Rowland MD - 10/15/2019 2:26 PM EDT CARDIOLOGY PROGRESS NOTE [facility] [address] [facility] [address] [facility] [id number] Physicians: Moises Patel MD (Family); No ref. provider found (Referring) Subjective: Fernando Helton is a 49 y.o. male seen in the office today for Follow-up (Overdue 6 monhth) . HPI: Patient presents in cardiovascular follow-up. Patient states he was hospitalized early in September 2019 for what appears to be symptoms of a posterior circulation TIA. Patient has had no recurrence in his neurologic symptoms. He has not had a recurrence in his chest symptoms that prompted single-vessel left internal mammary grafting to the left anterior descending in January 2019. Patient states he has noticed more wheezing and mild improving symptoms of shortness of breath for which he was placed on a corticosteroid taper. He tells me in the office today he has discontinued tobacco abuse. Patient is not describing chest discomfort or shortness of breath with activities of daily living. NoPND or orthopnea. No syncope. He is not describing palpitations. Assessment & Plan: TIA (transient ischemic attack) Patient had presented September 2019 with symptoms concerning for posterior circulation TIA. Seen in consultation by neurology. MRI unremarkable. CT angiography of the head and neck no extracranial or vertebral stenosis. No recurrence in symptom complex. I would like to obtain 2D echocardiogram to exclude intracardiac source of emboli and 30-day event recorder. Patient recommended by neurology for long-term dual antiplatelet therapy. Essential hypertension We have made no change in his current medical regiment. Mixed hyperlipidemia Patient should continue with high intensity plaque stabilization therapy. Coronary artery disease involving [place] coronary artery of [place] heart without angina pectoris Patient has a long-standing history of cardiac disease beginning in April 2012 at which time he hadpresented with an acute anterolateral wall myocardial infarction. He underwent catheter base intervention with bare-metal stent placement to the left anterior descending at that time due to a historyof profound medical noncompliance. He discontinued his medical regiment in September 2014 and had represented with an acute anterior wall myocardial infarction secondary to acute stent thrombosis. His procedure was complicated by ventricular fibrillation arrest. He underwent catheter base interventionwith drug-eluting stent placement to the LAD at that time. He has chronic chest pain syndrome, and underwent relook angiography in December 2014 and had balloon intervention to a jailed diagonal branch. There was no angiographic evidence of restenosis within the left anterior descending, and his ejection fraction was 30%. Patient had presented with chest symptoms January 2019 and was found to have an occluded collateralized left anterior descending at the site of previous catheter-based intervention. LV ejection fraction was reported at 45% with anterior wall hypokinesis. 2D echocardiogram with an LV ejection fraction of 55% with akinesis of the mid and apical anteroseptal wall. Patient subsequent underwent left internal mammary grafting to the left anterior descending by Dr. Mcneil. Patient is not reporting a recurrence in his chest symptoms. We recommend he continue on his current medical regiment. COPD (chronic obstructive pulmonary disease) (HCC) Patient reports he has discontinued tobacco abuse. ISAC (obstructive sleep apnea) Noncompliant with CPAP therapy. Nicotine abuse Patient reports he has discontinued tobacco abuse. EKG Interpretation: Follow Up Ordered: Return in about 6 months (around 04/13/2020). Patient's Medications New Prescriptions No medications on file Previous Medications ALBUTEROL 90 MCG/ACTUATION INHALER Inhale 2 puffs every 6 (six) hours as needed for wheezing or shortness of breath . ASPIRIN 81 MG EC TABLET Take 81 mg by mouth daily. ATORVASTATIN (LIPITOR) 40 MG TABLET Take 1 (one) tablet (40 mg total) by mouth nightly . BLOOD SUGAR DIAGNOSTIC (GLUCOSE BLOOD) STRIPS Use as directed before breakfast and supper Dx E11.65. BLOOD-GLUCOSE METER KIT Use as instructed Dx E11.65 . BUDESONIDE-FORMOTEROL (SYMBICORT) 160-4.5 MCG/ACTUATION INHALER Inhale 2 puffs 2 (two) times a day . CLOPIDOGREL (PLAVIX) 75 MG TABLET Take 1 (one) tablet (75 mg total) by mouth daily . FREESTYLE 28 GAUGE LANCETS USE DIRECTED BID BEFORE BREAKFAST AND SUPPER FUROSEMIDE (LASIX) 20 MG TABLET Take 1 (one) tablet (20 mg total) by mouth daily . LANCETS MISC Use as directed before breakfast and supper Dx E11.65 . METOPROLOL TARTRATE 75 MG TAB Take 75 mg by mouth 2 (two) times a day . OMEPRAZOLE (PRILOSEC) 40 MG CAPSULE Take 1 (one) capsule (40 mg total) by mouth daily . POTASSIUM CHLORIDE (K-DUR) 10 MEQ CR TABLET Take 1 (one) tablet (10 mEq total) by mouth daily . ROPINIROLE (REQUIP) 2 MG TABLET Take 2 mg by mouth nightly. TRAZODONE (DESYREL) 50 MG TABLET Take 50 mg by mouth nightly as needed . Modified Medications No medications on file Discontinued Medications No medications on file Histories: The past history, social and family history, and allergies were reviewed and updated as needed. Review of Systems Constitution: Negative for diaphoresis, malaise/fatigue, weight gain and weight loss. HENT: Negative for hearing loss, nosebleeds and tinnitus. Eyes: Negative for blurred vision and visual disturbance. Cardiovascular: Positive for dyspnea on exertion. Negative for chest pain, claudication, cyanosis, irregular heartbeat, leg swelling, near-syncope, orthopnea, palpitations, paroxysmal nocturnal dyspnea and syncope. Respiratory: Positive for shortness of breath, snoring and wheezing. Negative for hemoptysis. Endocrine: Negative for cold intolerance and heat intolerance. Hematologic/Lymphatic: Does not bruise/bleed easily. Skin: Negative for flushing, poor wound healing and rash. Musculoskeletal: Positive for arthritis and back pain. Negative for muscle weakness and myalgias. Gastrointestinal: Negative for abdominal pain, change in bowel habit, melena, nausea and vomiting. Genitourinary: Negative for decreased libido and hematuria. Neurological: Negative for loss of balance and numbness. Psychiatric/Behavioral: Negative for memory loss. The patient is not nervous/anxious. Objective: Physical Exam Constitutional: He is oriented to person, place, and time. He appears well- developed and well-nourished. HENT: Head: Normocephalic and atraumatic. Right Ear: External ear normal. Left Ear: External ear normal. Nose: Nose normal. Mouth/Throat: Oropharynx is clear and moist. Eyes: Pupils are equal, round, and reactive to light. Neck: Normal range of motion. Neck supple. No hepatojugular reflux and no JVD present. No muscular tenderness present. Carotid bruit is not present. No edema present. No thyroid mass present. Cardiovascular: Normal rate, regular rhythm, normal heart sounds and intact distal pulses. Pulses: Radial pulses are 1+ on the right side and 2+ on the left side. Physiologic S1 and S2. Quiet precordium. No obvious murmur. Apical impulse not palpable. Jugular venous pressure difficult to estimate Pulmonary/Chest: Effort normal and breath sounds normal. No rales or wheezes Abdominal: Soft. Normal appearance and bowel sounds are normal. There is no abdominal tenderness. Musculoskeletal: Normal range of motion. Comments: No edema Neurological: He is alert and oriented to person, place, and time. He has normal strength and normal reflexes. No cranial nerve deficit. Skin: Skin is warm and dry. No cyanosis. Nails show no clubbing. Psychiatric: He has a normal mood and affect. His speech is normal and behavior is normal. I personally reviewed and verified the review of systems obtained by the medical research tech. Vitals: Vitals: 10/15/19 1406 BP: (!) 142/85 BP Location: Right arm Patient Position: Sitting BP Cuff Size: X-large Adult Pulse: 83 SpO2: 95% Weight: 120.2 kg (265 lb 1.6 oz) Height: 5' 6 1. TIA (transient ischemic attack) 2. Essential hypertension 3. Mixed hyperlipidemia 4. Coronary artery disease involving [place] coronary artery of [place] heart without angina pectoris 5. Centrilobular emphysema (HCC) 6. ISAC on CPAP 7. Nicotine abuse Anita Rowland MD documented in this encounter* Slim Low, HEALTH DIAGNOSTICS TEACHER - 01/29/2019 9:56 AM EST Patient ID: Patient Name: Fernando Helton Admit Date: 01/17/2019 MR #: [id number] : 1970 Current location: [facility] Physicians: Moises Patel MD (Family); Kristin BARCENAS (Referring) Reason for consult: Type 2 diabetes New diagnosis Assessment/Plan: Dx: Type 2 diabetes, under good control. Newly diagnosed during this admission. Currently diet controlled. Currently taking as outpatient: No oral hypoglycemic medications Current Hemoglobin A1C= 6.5% 01/20/19 Lab Results Component Value Date HGBA1C 6.5 (H) 01/20/2019 NOTES: 01/21: BG reviewed since admission. Patient presented to the hospital with chest pain and underwentheart cath 01/20. Stent to LAD is occluded and the patient will need CABG surgery. CT surgery has seen the patient and plan is to move forward with surgery on Sunday. Patient has not had any diabetes treatment during this hospital stay as he was just found to have an elevated A1C., of 6.5%. Patient h as never been told he has diabetes. 01/22: BG reviewed over last 24 hours. Patient is currently on SSI only. 01/23 BG reviewed. Discussed with patient that he meets the criteria for type 2 diabetes mellitus, currently is diet controlled. His has type 2 diabetes mellitus and is on insulin therapy. He will be making some dietary changes, and will stop drinking regular sodas. Scheduled for CABG tomorrow. 01/25 BG reviewed. He is currently on IV insulin POD #1. 01/27 BG reviewed. IV insulin discontinued and patient is on sliding scale. He is currently NPO as KUB showed evidence of an ileus, gen surgery was consulted. 01/28 BG reviewed. Patient remains on SSI; BG stable. 01/29 BG reviewed. Patient on SSI, BG well controlled, DC planned today. Blood Glucoses: 01/20: 134 (from Chemistry 01/20 AM) 01/21: 116---119---175---147 01/22: 125---116---107---142 01/23 124---106---110---163 01/24 169---169---131---132 01/25 129---132--127---117---119---129---109---125 01/26 110---117---111--112---128 01/27 117---111--- 113 01/28 115---110---93---114---113 01/29 104 Plan: 1. Rx changes: see below Adjust diet to CHO controlled Check BG QAC/HS. 01/22: CPM. 01/23 continue to monitor BG with sliding scale as needed. He will need IV insulin postoperatively.We will start glimepiride if needed; would be a good candidate for metformin in the future. 01/25 Will continue IV insulin throughout day. May consider stopping IV insulin later in day.will place sliding scale orders. 01/26 Continue SSI. Consider glimepiride if needed for BG control. When recovered from surgery, would recommend metformin if EF and creat stable. He will need to check BG BID-QID at home after discharge. 01/27: Continue SSI once diet is advanced. Continue to monitor BG and diet/NPO status. 01/28 Continue SSI. Diet advanced to solid; will continue to monitor with increase in PO intake. Will send Rx for meter and supplies. 01/29 CPM. Follow up with Dr. Fernandez in 6-8 weeks. Check BG BID. 2. Education: Reviewed ABCs of diabetes management (respective goals in parentheses): A1C (7.0-8.0), blood pressure (<130/80), and cholesterol (LDL <100). Referral to Diabetes Education Referral to Nutrition therapy Subjective: Interval HPI: 01/22: No complaints. 01/23 patient has no chest pain or shortness of breath today. 01/25 Patient with surgical chest pain. 01/26 Patient with pain in chest after CT removal. 01/27: Pt with b/l flank pain, low urine output, and constipation. He is NPO for investigation of ileus apparent on KUB. 01/28 PT feeling better. Ate breakfast without problems. 01/29: Without complaints. Brief HPI: Mr. Helton is a 48-year-old male patient presented to the emergency department on 01/20/2019 for complaints of chest pain. His initial evaluation was negative however he was admitted the hospital for further observation/management. Patient was seen and evaluated by cardiology and subsequently underwent a cardiac catheterization on 01/20/2019. Patient was found to have an occluded LAD stent, that hadbeen previously placed about 3 to 4 years ago. He was referred to CT surgery for bypass graft surgery in the near future. CT surgery came to evaluate the patient and ordered a hemoglobin A1c. He was found to have a hemoglobin A1c of 6.5%, and is also been noted to have 2 elevated blood sugar valuesduring his hospital stay. Endocrinology was consulted to further evaluate the patient and provide further treatment recommendations. Patient reports he is never been told he has diabetes. He is also never been told he even had impaired fasting blood glucose. He reports that his maternal family has a history of type 2 diabetes, especially in his uncle. The patient reports he drinks regular pop, at least 2 cans of Pepsi every day.He has been drinking more than that until recently he cut down. He does typically avoid concentrated sweets. The patient also suffers from coronary artery disease, hypertension and hyperlipidemia. Yenifer suffers from ischemic systolic heart failure and is followed by Pallavi David clinical nurse specialist in our heart failure clinic. Patient suffers from COPD and sleep apnea and is supposed to be wearing a CPAP however he is now always compliant with. Again upon further evaluation the patient wasfound to have an elevated hemoglobin A1c of 6.5% on 01/20/2019. Complications of diabetes include: Retinopathy: Negative Nephropathy: Negative Peripheral Neuropathy: Negative Autonomic Neuropathy: Negative Allergies: Allergies Allergen Reactions Imdur [Isosorbide Mononitrate] Caused severe headache and had to stop it. Home Medications: Outpatient Medications Marked as Taking for the 01/17/19 encounter (Hospital Encounter): albuterol 90 mcg/actuation inhaler, Inhale 2 puffs every 6 (six) hours as needed for wheezing or shortness of breath . aspirin 81 MG EC tablet, Take 81 mg by mouth daily. budesonide-formoterol (Symbicort) 160-4.5 mcg/actuation inhaler, Inhale 2 puffs 2 (two) times a day. carvedilol (COREG) 25 MG tablet, Take 1 (one) tablet (25 mg total) by mouth 2 (two) times a day with meals . enalapril (VASOTEC) 5 MG tablet, Take 5 mg by mouth 2 (two) times a day . furosemide (LASIX) 40 MG tablet, Take 1 (one) tablet (40 mg total) by mouth daily . ipratropium-albuterol (DUO-NEB) 0.5-2.5 mg/3 ml nebulizer, Take 3 mL by nebulization every 6 (six) hours . potassium chloride (K-DUR) 10 MEQ CR tablet, Take 10 mEq by mouth 2 (two) times a day . prasugrel (EFFIENT) 10 mg tablet, Take 1 (one) tablet (10 mg total) by mouth daily . rOPINIRole (REQUIP) 2 MG tablet, Take 2 mg by mouth nightly. varenicline (CHANTIX) 1 mg tablet, Take 1 mg by mouth 2 (two) times a day . [DISCONTINUED] atorvastatin (LIPITOR) 20 MG tablet, Take 1 (one) tablet (20 mg total) by mouth daily . [DISCONTINUED] omeprazole (PRILOSEC) 40 MG capsule, Take 40 mg by mouth daily Current Medications: aspirin 81 mg Oral Daily atorvastatin 20 mg Oral at bedtime bisacodyl 10 mg Rectal Daily budesonide-formoterol 2 puff Inhalation BID clopidogrel 75 mg Oral Daily docusate sodium 100 mg Oral Daily enoxaparin (LOVENOX) injection 40 mg Subcutaneous BID ferrous sulfate 325 mg Oral TID with meals insulin lispro 0-20 Units Subcutaneous at bedtime insulin lispro 0-30 Units Subcutaneous TID AC metoprolol tartrate 75 mg Oral BID pantoprazole 40 mg Oral BID sodium chloride (PF) 5 mL Intravenous Q8H JUVENCIO acetaminophen OR acetaminophen, dextrose 5 % and sodium chloride 0.45 %, hydrALAZINE, insulin regular - [facility], Protocol 1 IVP Bolus, levalbuterol, ondansetron, oxyCODONE-acetaminophen, Saline lock IV AND sodium chloride (PF) AND sodium chloride (PF) AND sodium chloride 0.9 % Review of Systems: Review of Systems Constitutional: Negative for appetite change, fatigue and unexpected weight change. HENT: Negative. Eyes: Negative. Respiratory: Negative for chest tightness and shortness of breath. Cardiovascular: Positive for chest pain (surgical). Negative for leg swelling. Gastrointestinal: Positive for constipation. Negative for abdominal pain, diarrhea, nausea and vomiting. Endocrine: Negative for polydipsia, polyphagia and polyuria. Genitourinary: Negative for decreased urine volume, flank pain and frequency. Musculoskeletal: Negative for arthralgias and myalgias. Skin: Negative for rash. Neurological: Negative for tremors, weakness and headaches. Psychiatric/Behavioral: Negative for sleep disturbance. History: Past Medical History: Diagnosis Date Acute respiratory failure (HCC) 09/2014 requring mechanical ventilation Anxiety Bilateral lower extremity edema R > L CAD (coronary artery disease) CAD s/p LHC with 1 stent in left main 07/2012, replaced 09/2014 Cardiac arrest with ventricular fibrillation ([facility]) 09/25/2014 CHF (congestive heart failure), NYHA class I, chronic, diastolic (HCC) Chronic sinusitis Claudication of right lower extremity (HCC) Cluster headache COPD (chronic obstructive pulmonary disease) ([facility]) 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 Bev Tolentino Metabolic syndrome Mood disorder ([facility]) Nasal fracture Obstructive sleep apnea noncompliant with CPAP Orthostatic dizziness with intermittent syncope Pericarditis 02/25/07; 09/23/17 Pneumomediastinum ([facility]) 01/12/2007 secondary to severe coughing spell & ruptured alveoli Rotator cuff tear, right 1998 s/p repair SLAP tear of shoulder 2011 left - s/p surgery to place [address] elevation myocardial infarction (STEMI) of anterolateral wall ([facility]) 05/09/2012 anterolateral STEMI involving left anterior descending coronary artery ([facility]) 09/25/2014 anterior Superficial thrombophlebitis of right upper extremity 12/26/2006 Past Surgical History: Procedure Laterality Date APPENDECTOMY 1998 BONE MARROW BIOPSY W/ ASPIRATION Left 11/27/2016 L posterior iliac crest; Dr. Bev Tolentino CABG OFF PUMP N/A 01/24/2019 Procedure: Coronary Artery Bypass graft x1 with Left Internal Mammary Artery graft, OFF PUMP; Surgeon: Neo Mcniel MD; Location: [facility]; Service: Cardiothoracic CARDIAC CATHETERIZATION 09/24/2014 Segment LV dysf., mild to moderate LV systolic impairment, moderate LV diastolic dysf.; single vessel CAD by Dr. Whitney CARDIAC CATHETERIZATION 05/09/2012 Emergent. Severe LVSD EF 20%; single vessel CAD with acute thrombotic occlusion of left anterior descending by Dr. Rowland CARDIAC CATHETERIZATION Left 09/28/2015 Dr. 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 Normal LV end-diastolic pressure. CARDIAC CATHETERIZATION 01/14/[address] Phillips CARDIAC CATHETERIZATION 11/24/[address] Rowland COLONOSCOPY 05/27/2015 CORONARY ANGIOPLASTY 12/25/2014 PCI with balloon angioplasty by Dr. Whitney of jailed diagonal CORONARY STENT PLACEMENT 05/09/2012 Drug eluted Alpine stent in the left anterior descending by Dr. Rowland CORONARY STENT PLACEMENT 09/24/2014 Subacute stent thrombosis by Dr. Whitney. This may be in the setting of areas of restenosis within the LAD stent ETHMOIDECTOMY Bilateral 06/25/[address] Gaitan [facility] LEFT HEART CATH N/A 01/20/2019 Procedure: Left Heart Cath; Surgeon: Carlo Mercedes MD; Location: [facility]; Service: Cardiovascular IABP placement 05/09/[address] Rowland NASAL SEPTUM SURGERY 06/25/[address] Gaitan ROTATOR CUFF REPAIR Right 1997 SHOULDER ARTHROSCOPY W/ SUPERIOR LABRAL ANTERIOR POSTERIOR REPAIR Left 11/2012 @ [facility] SHOULDER ARTHROSCOPY W/ SUPERIOR LABRAL ANTERIOR POSTERIOR REPAIR Left 11/22/2011 shoulder arthroscopic anterior capsulorraphy, SLAP repair, acromioplasty, limited debridement of labrum and rotator cuff by Dr. Sexton SINUSOTOMY Bilateral 06/25/2007 with removal of tissue by Dr. Gaitan UPPER GASTROINTESTINAL ENDOSCOPY 2016 Family History Problem Relation Age of Onset Heart attack Father Heart disease Father s/p cabg x 4 in his 40s Coronary artery disease Father Hypertension Father Hyperlipidemia Father Heart disease Mother Stroke Mother 64 Hyperlipidemia Mother Coronary artery disease Other Cancer Paternal Uncle unknown cancer Hypertension Sister Diabetes Brother Heart disease Brother s/p PCI Melanoma Brother Social History Tobacco Use Smoking status: Former Smoker Packs/day: 1.00 Years: 35.00 Pack years: 35.00 Last attempt to quit: 05/12/2016 Years since quittin.7 Smokeless tobacco: Never Used Tobacco comment: Quit Substance Use Topics Alcohol use: Yes Alcohol/week: 0.0 standard drinks Comment: socially Drug use: Not Currently Types: Marijuana The following portions of the patient's history were reviewed and updated as appropriate: allergies, current medications, past family history, past medical history, past social history, past surgicalhistory and problem list. Objective: BP (!) 138/90 (BP Location: Left arm, Patient Position: Lying) Pulse 92 Temp 98.5 F (36.9 C) (Oral) Resp 18 Ht 5' 6.14 Wt 112.5 kg (248 lb 0.3 oz) Comment: standing scale SpO2 96% BMI 39.86 kg/m Wt Readings from Last 3 Encounters: 01/29/19 112.5 kg (248 lb 0.3 oz) 01/04/19 113.4 kg (250 lb) 12/26/18 113.9 kg (251 lb) Physical Exam: Physical Exam Constitutional: He is oriented to person, place, and time. He appears well- developed and well-nourished. No distress. HENT: Head: Normocephalic and atraumatic. Mouth/Throat: Oropharynx is clear and moist. Eyes: Pupils are equal, round, and reactive to light. Conjunctivae and EOM are normal. Neck: Normal range of motion. Neck supple. Cardiovascular: Normal rate, regular rhythm, normal heart sounds and intact distal pulses. No murmur heard. Pulmonary/Chest: Effort normal and breath sounds normal. No respiratory distress. He has no wheezes. He has no rales. Abdominal: Soft. Musculoskeletal: Normal range of motion. General: No edema. Neurological: He is alert and oriented to person, place, and time. No cranial nerve deficit. Skin: Skin is warm and dry. No rash noted. No erythema. Psychiatric: He has a normal mood and affect. His behavior is normal. Judgment and thought content normal. Laboratory Review: BP (!) 138/90 (BP Location: Left arm, Patient Position: Lying) Pulse 92 Temp 98.5 F (36.9 C) (Oral) Resp 18 Ht 5' 6.14 Wt 112.5 kg (248 lb 0.3 oz) Comment: standing scale SpO2 96% BMI 39.86 kg/m Lab Results Component Value Date HGBA1C 6.5 (H) 01/20/2019 Glucose (mg/dL) Date Value 01/29/2019 101 (H) Creatinine (mg/dL) Date Value 01/29/2019 1.08 09/27/2018 1.0 01/09/2018 1.14 Lab Results Component Value Date CHOL 183 09/24/2014 TRIG 201 (A) 09/24/2014 HDL 34 (A) 09/24/2014 LDL 109 09/24/2014 Lab Results Component Value Date TSH 1.15 01/20/2019 T4, Free Date Value Ref Range Status 01/20/2019 1.0 0.7 - 1.7 ng/dL Final Lab Results Component Value Date WBC 9.70 01/29/2019 HGB 10.9 (L) 01/29/2019 HCT 33.7 (L) 01/29/2019 MCV 86.2 01/29/2019 PLT 277 01/29/2019 This SmartLink has not been configured with any valid records. This SmartLink has not been configured with any valid records. Laboratory and Additional Data Reviewed: Laboratory 01/29/19 10:35 AM Microbiology 01/29/19 10:35 AM Pathology 01/29/19 10:35 AM Cardiology 01/29/19 10:35 AM Medications 01/29/19 10:35 AM Thank you for this consultation, we will continue to follow this patient with you. * Kristin Byrnes PA-C - 01/29/2019 6:52 AM EST 01/29/19 Fernando Helton SUBJECTIVE: Patient is sitting up in the recliner with bilateral lower extremities in the dependentposition and appears to be in no acute distress. He denies any chest pain, shortness of breath, abdominal pain, nausea or dizziness. He had two bowel movements yesterday and states he is ready to go home. He complains of some blisters on bilateral lateral sides secondary to tape. OBJECTIVE: VITAL SIGNS: BP 122/74 (BP Location: Right arm) Pulse 93 Temp 98.4 F (36.9 C) (Oral) Resp 18 Ht 5' 6.14 Wt 112.5 kg (248 lb 0.3 oz) Comment: standing scale SpO2 94% BMI 39.86 kg/m LABS: Recent Labs 01/27/19 0605 01/28/19 0434 01/29/19 0556 NA 131* 136 138 K 4.5 4.1 4.2 CL 97* 105 105 BICARB 23 26 26 BUN 43* 31* 29* CREATININE 3.10* 1.04 1.08 GLUCOSE 123* 105* 101* Recent Labs 01/27/19 0418 01/28/19 0434 01/29/19 0556 WBC 16.03* 10.07 9.70 HGB 11.2* 10.1* 10.9* HCT 33.9* 30.5* 33.7* PLT 194 212 277 No results for input(s): INR in the last 72 hours. 01/29/19 Troponin: <15 MEDICATIONS: Current Facility-Administered Medications Medication Dose Route Frequency Provider Last Rate Last Dose acetaminophen (TYLENOL) tablet 650 mg 650 mg Oral Q4H PRN Kristin Walker PA-C 650 mg at 01/25/192101 Or acetaminophen (TYLENOL) suppository 650 mg 650 mg Rectal Q4H PRN Kristin Walker PA-C aspirin EC tablet 81 mg 81 mg Oral Daily Jacob Cam PA-C 81 mg at 01/28/19 0840 atorvastatin (LIPITOR) tablet 20 mg 20 mg Oral at bedtime Jacob Cam PA-C 20 mg at 01/28/192023 bisacodyl (DULCOLAX) suppository 10 mg 10 mg Rectal Daily Jacob Cam PA-C 10 mg at 01/27/19 1400 budesonide-formoterol (SYMBICORT) 160-4.5 mcg/actuation inhaler 2 puff 2 puff Inhalation BID Meron Roper MD 2 puff at 01/28/192044 clopidogrel (PLAVIX) tablet 75 mg 75 mg Oral Daily [facility] 75 mg at 01/28/19 0840 dextrose 5 % and sodium chloride 0.45 % infusion 50 mL/hr Intravenous Continuous PRN Kristin Walker PA-C docusate sodium (COLACE) capsule 100 mg 100 mg Oral Daily Jacob Cam PA-C 100 mg at 01/28/19 0840 enoxaparin (LOVENOX) syringe 40 mg 40 mg Subcutaneous BID Jacob Cam PA-C 40 mg at 01/28/192022 ferrous sulfate tablet 325 mg 325 mg Oral TID with meals Jacob Cam PA-C 325 mg at 01/28/191818 hydrALAZINE (APRESOLINE) tablet 25 mg 25 mg Oral Q6H PRN Jacob Cam PA-C insulin lispro (HumaLOG) injection 0-20 Units 0-20 Units Subcutaneous at bedtime Melinda Fernandez MD 0 Units at 01/25/192054 insulin lispro (HumaLOG) injection 0-30 Units 0-30 Units Subcutaneous TID AC Melinda Fernandez MD0 Units at 01/28/19 1630 insulin regular (HumuLIN R, NovoLIN R) injection 0-10 Units 0-10 Units Intravenous Continuous PRN Kristin Walker PA-C levalbuterol (XOPENEX) nebulizer solution 1.25 mg 1.25 mg Nebulization Q4H PRN Kristin Walker PA-C metoprolol tartrate (LOPRESSOR) tablet 50 mg 50 mg Oral BID Neo Mcneil MD 50 mg at 01/28/192024 ondansetron (ZOFRAN) injection 4 mg 4 mg Intravenous Q6H PRN Kristin Walker PA-C oxyCODONE-acetaminophen (PERCOCET) 5-325 mg per tablet 1 tablet 1 tablet Oral Q2H PRN Kristin Walker PA-C 1 tablet at 01/29/19 0548 pantoprazole (PROTONIX) EC tablet 40 mg 40 mg Oral BID Neo Mcneil MD 40 mg at 01/28/192023 sodium chloride (PF) (NS) flush 5 mL 5 mL Intravenous PRN Kristin Walker PA-C And sodium chloride (PF) (NS) flush 5 mL 5 mL Intravenous Q8H JUVENCIO Kristin Walker PA-C 5 mL at 01/29/19 0542 And sodium chloride 0.9% (NS) 0-150 mL/hr Intravenous PRN Kristin Walker PA-C Drips: dextrose 5 % and sodium chloride 0.45 % insulin regular - Open Heart, Protocol 1 IVP Bolus sodium chloride 0.9 % Temporary pacer Physical Exam Constitutional: He is oriented to person, place, and time. He appears well- developed and well-nourished. No distress. Cardiovascular: Normal rate, regular rhythm and normal heart sounds. Exam reveals no gallop and no friction rub. No murmur heard. Temporary pacer off. Heart Hugger present. Pulmonary/Chest: Effort normal and breath sounds normal. No respiratory distress. He has no wheezes. He has no rales. He exhibits no tenderness. Abdominal: Bowel sounds are normal. He exhibits no distension. There is no abdominal tenderness. There is no rebound. Tight belly. Last bowel movement 01/28/19. Musculoskeletal: General: Edema present. No tenderness. Comments: Bilateral lower extremity PRASAD hose present. Nonpitting edema bilaterally. Neurological: He is alert and oriented to person, place, and time. Skin: Skin is warm and dry. No rash noted. He is not diaphoretic. No erythema. No pallor. Sternal incision is clean, dry, and intact with steri-strips present. No erythema, edema, nor drainage noted. Unroofed linear blister on the abdomen secondary to previous tape. Psychiatric: He has a normal mood and affect. His behavior is normal. ASSESSMENT: S/P CABG x 1, without the use of cardiopulmonary bypass by Dr. Neo Mcneil (POD#5) PMHx: Reviewed Postoperative hyperglycemia on newly diagnosed diabetes mellitus type 2, managed by Dr. Melinda Fernandez Postoperative acute kidney injury, new onset, improved with gentle hydration with normal saline Postoperative hyponatremia, resolved Postoperative acute leukocytosis, upward trending secondary to hypoventilation and bilateral posterior flank pain, resolved Postoperative acute surgical blood loss anemia, downward trending, secondary to possible dilution, downward trending Postoperative symptomatic hypotension, secondary to medication administration, resolved with gentlehydration and cessation of beta-blockade and antihypertensive medications Postoperative distention with possible ileus on KUB, managed with bowel rest and BM, resolved Postoperative relative tachycardia PLAN: POD#5 orders per AM rounds Increase Lopressor 75 mg PO BID Remove pacing wires Discharge to home without HHC later this afternoon Follow up with CT Surgery on 01/31 * Louise Caruso RN - 01/28/2019 2:18 PM EST DISCHARGE PLAN PROGRESS NOTE Date: 01/28/2019 Time: 2:18 PM Patient Name: Fernando Helton Date of : 1970 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 He is s/p CABG on 01/24 Post op day 4. BPCI mobility is done with assistance of physical and occupational therapy. Possible dc home with spouse tomorrow. * Josiah Mathis RD - 01/28/2019 9:42 AM EST Nutrition Education: DM cardiac diet Pt/family education: Learner: patient and significant other Educated on: cho equivalents, reduced Na+ Readiness: acceptance Method: explanation and handout Response: verbalizes understanding * Melinda Fernandez MD - 01/28/2019 8:35 AM EST Patient ID: Patient Name: Fernando Hleton Admit Date: 01/17/2019 MR #: [id number] : 1970 Current location: [facility] Physicians: Moises Patel MD (Family); Kristin BARCENAS (Referring) Reason for consult: Type 2 diabetes New diagnosis Assessment/Plan: Dx: Type 2 diabetes, under good control. Newly diagnosed during this admission. Currently diet controlled. Currently taking as outpatient: No oral hypoglycemic medications Current Hemoglobin A1C= 6.5% 01/20/19 Lab Results Component Value Date HGBA1C 6.5 (H) 01/20/2019 NOTES: 01/21: BG reviewed since admission. Patient presented to the hospital with chest pain and underwentheart cath 01/20. Stent to LAD is occluded and the patient will need CABG surgery. CT surgery has seen the patient and plan is to move forward with surgery on Sunday. Patient has not had any diabetes treatment during this hospital stay as he was just found to have an elevated A1C., of 6.5%. Patient has never been told he has diabetes. 01/22: BG reviewed over last 24 hours. Patient is currently on SSI only. 01/23 BG reviewed. Discussed with patient that he meets the criteria for type 2 diabetes mellitus, currently is diet controlled. His has type 2 diabetes mellitus and is on insulin therapy. He will be making some dietary changes, and will stop drinking regular sodas. Scheduled for CABG tomorrow. 01/25 BG reviewed. He is currently on IV insulin POD #1. 01/27 BG reviewed. IV insulin discontinued and patient is on sliding scale. He is currently NPO as KUB showed evidence of an ileus, gen surgery was consulted. 01/28 BG reviewed. Patient remains on SSI; BG stable. Blood Glucoses: 01/20: 134 (from Chemistry 01/20 AM) 01/21: 116---119---175---147 01/22: 125---116---107---142 01/23 124---106---110---163 01/24 169---169---131---132 01/25 129---132--127---117---119---129---109---125 01/26 110---117---111--112---128 01/27 117---111--- 113 01/28 115---110 Plan: 1. Rx changes: see below Adjust diet to CHO controlled Check BG QAC/HS. 01/22: CPM. 01/23 continue to monitor BG with sliding scale as needed. He will need IV insulin postoperatively.We will start glimepiride if needed; would be a good candidate for metformin in the future. 01/25 Will continue IV insulin throughout day. May consider stopping IV insulin later in day.will place sliding scale orders. 01/26 Continue SSI. Consider glimepiride if needed for BG control. When recovered from surgery, would recommend metformin if EF and creat stable. He will need to check BG BID-QID at home after discharge. 01/27: Continue SSI once diet is advanced. Continue to monitor BG and diet/NPO status. 01/28 Continue SSI. Diet advanced to solid; will continue to monitor with increase in PO intake. Will send Rx for meter and supplies. 2. Education: Reviewed ABCs of diabetes management (respective goals in parentheses): A1C (7.0-8.0), blood pressure (<130/80), and cholesterol (LDL <100). Referral to Diabetes Education Referral to Nutrition therapy Subjective: Interval HPI: 01/22: No complaints. 01/23 patient has no chest pain or shortness of breath today. 01/25 Patient with surgical chest pain. 01/26 Patient with pain in chest after CT removal. 01/27: Pt with b/l flank pain, low urine output, and constipation. He is NPO for investigation of ileus apparent on KUB. 01/28 PT feeling better. Ate breakfast without problems. Brief HPI: Mr. Helton is a 48-year-old male patient presented to the emergency department on 01/20/2019 for complaints of chest pain. His initial evaluation was negative however he was admitted the hospital for further observation/management. Patient was seen and evaluated by cardiology and subsequently underwent a cardiac catheterization on 01/20/2019. Patient was found to have an occluded LAD stent, that hadbeen previously placed about 3 to 4 years ago. He was referred to CT surgery for bypass graft surgery in the near future. CT surgery came to evaluate the patient and ordered a hemoglobin A1c. He was found to have a hemoglobin A1c of 6.5%, and is also been noted to have 2 elevated blood sugar valuesduring his hospital stay. Endocrinology was consulted to further evaluate the patient and provide further treatment recommendations. Patient reports he is never been told he has diabetes. He is also never been told he even had impaired fasting blood glucose. He reports that his maternal family has a history of type 2 diabetes, especially in his uncle. The patient reports he drinks regular pop, at least 2 cans of Pepsi every day.He has been drinking more than that until recently he cut down. He does typically avoid concentrated sweets. The patient also suffers from coronary artery disease, hypertension and hyperlipidemia. Yenifer suffers from ischemic systolic heart failure and is followed by Pallavi David clinical nurse specialist in our heart failure clinic. Patient suffers from COPD and sleep apnea and is supposed to be wearing a CPAP however he is now always compliant with. Again upon further evaluation the patient wasfound to have an elevated hemoglobin A1c of 6.5% on 01/20/2019. Complications of diabetes include: Retinopathy: Negative Nephropathy: Negative Peripheral Neuropathy: Negative Autonomic Neuropathy: Negative Allergies: Allergies Allergen Reactions Imdur [Isosorbide Mononitrate] Caused severe headache and had to stop it. Home Medications: Outpatient Medications Marked as Taking for the 01/17/19 encounter (Hospital Encounter): albuterol 90 mcg/actuation inhaler, Inhale 2 puffs every 6 (six) hours as needed for wheezing or shortness of breath . aspirin 81 MG EC tablet, Take 81 mg by mouth daily. atorvastatin (LIPITOR) 20 MG tablet, Take 1 (one) tablet (20 mg total) by mouth daily . budesonide-formoterol (Symbicort) 160-4.5 mcg/actuation inhaler, Inhale 2 puffs 2 (two) times a day. carvedilol (COREG) 25 MG tablet, Take 1 (one) tablet (25 mg total) by mouth 2 (two) times a day with meals . enalapril (VASOTEC) 5 MG tablet, Take 5 mg by mouth 2 (two) times a day . furosemide (LASIX) 40 MG tablet, Take 1 (one) tablet (40 mg total) by mouth daily . ipratropium-albuterol (DUO-NEB) 0.5-2.5 mg/3 ml nebulizer, Take 3 mL by nebulization every 6 (six) hours . omeprazole (PRILOSEC) 40 MG capsule, Take 40 mg by mouth daily potassium chloride (K-DUR) 10 MEQ CR tablet, Take 10 mEq by mouth 2 (two) times a day . prasugrel (EFFIENT) 10 mg tablet, Take 1 (one) tablet (10 mg total) by mouth daily . rOPINIRole (REQUIP) 2 MG tablet, Take 2 mg by mouth nightly. varenicline (CHANTIX) 1 mg tablet, Take 1 mg by mouth 2 (two) times a day . Current Medications: aspirin 81 mg Oral Daily atorvastatin 20 mg Oral at bedtime bisacodyl 10 mg Rectal Daily budesonide-formoterol 2 puff Inhalation BID clopidogrel 75 mg Oral Daily docusate sodium 100 mg Oral Daily enoxaparin (LOVENOX) injection 40 mg Subcutaneous BID ferrous sulfate 325 mg Oral TID with meals insulin lispro 0-20 Units Subcutaneous at bedtime insulin lispro 0-30 Units Subcutaneous TID AC metoprolol tartrate 25 mg Oral BID pantoprazole 40 mg Oral BID sodium chloride (PF) 5 mL Intravenous Q8H JUVENCIO acetaminophen OR acetaminophen, dextrose 5 % and sodium chloride 0.45 %, hydrALAZINE, insulin regular - Open Heart, Protocol 1 IVP Bolus, levalbuterol, ondansetron, oxyCODONE-acetaminophen, Saline lock IV AND sodium chloride (PF) AND sodium chloride (PF) AND sodium chloride 0.9 % Review of Systems: Review of Systems Constitutional: Negative for appetite change, fatigue and unexpected weight change. HENT: Negative. Eyes: Negative. Respiratory: Negative for chest tightness and shortness of breath. Cardiovascular: Positive for chest pain (surgical). Negative for leg swelling. Gastrointestinal: Positive for constipation. Negative for abdominal pain, diarrhea, nausea and vomiting. Endocrine: Negative for polydipsia, polyphagia and polyuria. Genitourinary: Negative for decreased urine volume, flank pain and frequency. Musculoskeletal: Negative for arthralgias and myalgias. Skin: Negative for rash. Neurological: Negative for tremors, weakness and headaches. Psychiatric/Behavioral: Negative for sleep disturbance. History: Past Medical History: Diagnosis Date Acute respiratory failure ([facility]) 09/2014 requring mechanical ventilation Anxiety Bilateral lower extremity edema R > L CAD (coronary artery disease) CAD s/p [facility] with 1 stent in left main 07/2012, replaced 09/2014 Cardiac arrest with ventricular fibrillation ([facility]) 09/25/2014 CHF (congestive heart failure), NYHA class I, chronic, diastolic ([facility]) Chronic sinusitis Claudication of right lower extremity ([facility]) Cluster headache COPD (chronic obstructive pulmonary disease) ([facility]) 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 Bev Tolentino Metabolic syndrome Mood disorder ([facility]) Nasal fracture Obstructive sleep apnea noncompliant with CPAP Orthostatic dizziness with intermittent syncope Pericarditis 02/25/07; 09/23/17 Pneumomediastinum ([facility]) 01/12/2007 secondary to severe coughing spell & ruptured alveoli Rotator cuff tear, right 1997 s/p repair SLAP tear of shoulder 2011 left - s/p surgery to place [address] elevation myocardial infarction (STEMI) of anterolateral wall ([facility]) 05/09/2012 anterolateral STEMI involving left anterior descending coronary artery ([facility]) 09/25/2014 anterior Superficial thrombophlebitis of right upper extremity 12/26/2006 Past Surgical History: Procedure Laterality Date APPENDECTOMY 1998 BONE MARROW BIOPSY W/ ASPIRATION Left 11/27/2016 L posterior iliac crest; Dr. Bev Tolentino CABG OFF PUMP N/A 01/24/2019 Procedure: Coronary Artery Bypass graft x1 with Left Internal Mammary Artery graft, OFF PUMP; Surgeon: Neo Mcneil MD; Location: [facility]; Service: Cardiothoracic CARDIAC CATHETERIZATION 09/24/2014 Segment LV dysf., mild to moderate LV systolic impairment, moderate LV diastolic dysf.; single vessel CAD by Dr. Whitney CARDIAC CATHETERIZATION 05/09/2012 Emergent. Severe LVSD EF 20%; single vessel CAD with acute thrombotic occlusion of left anterior descending by Dr. Rowland CARDIAC CATHETERIZATION Left 09/28/2015 Dr. 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 Normal LV end-diastolic pressure. CARDIAC CATHETERIZATION 01/14/[address] Phillips CARDIAC CATHETERIZATION 11/24/[address] Rowland COLONOSCOPY 05/27/2015 CORONARY ANGIOPLASTY 12/25/2014 PCI with balloon angioplasty by Dr. Whitney of jailed diagonal CORONARY STENT PLACEMENT 05/09/2012 Drug eluted Alpine stent in the left anterior descending by Dr. Rowland CORONARY STENT PLACEMENT 09/24/2014 Subacute stent thrombosis by Dr. Whitney. This may be in the setting of areas of restenosis within the LAD stent ETHMOIDECTOMY Bilateral 06/25/[address] Gaitan LEFT HEART CATH N/A 01/20/2019 Procedure: Left Heart Cath; Surgeon: Carlo Mercedes MD; Location: [facility]; Service: Cardiovascular IABP placement 05/09/[address] Rowland NASAL SEPTUM SURGERY 06/25/[address] Gaitan ROTATOR CUFF REPAIR Right 1997 SHOULDER ARTHROSCOPY W/ SUPERIOR LABRAL ANTERIOR POSTERIOR REPAIR Left 11/2012 @ [facility] SHOULDER ARTHROSCOPY W/ SUPERIOR LABRAL ANTERIOR POSTERIOR REPAIR Left 11/22/2011 shoulder arthroscopic anterior capsulorraphy, SLAP repair, acromioplasty, limited debridement of labrum and rotator cuff by Dr. Sexton SINUSOTOMY Bilateral 06/25/2007 with removal of tissue by Dr. Gaitan UPPER GASTROINTESTINAL ENDOSCOPY 2016 Family History Problem Relation Age of Onset Heart attack Father Heart disease Father s/p cabg x 4 in his 40s Coronary artery disease Father Hypertension Father Hyperlipidemia Father Heart disease Mother Stroke Mother 64 Hyperlipidemia Mother Coronary artery disease Other Cancer Paternal Uncle unknown cancer Hypertension Sister Diabetes Brother Heart disease Brother s/p PCI Melanoma Brother Social History Tobacco Use Smoking status: Former Smoker Packs/day: 1.00 Years: 35.00 Pack years: 35.00 Last attempt to quit: 05/12/2016 Years since quittin.7 Smokeless tobacco: Never Used Tobacco comment: Quit Substance Use Topics Alcohol use: Yes Alcohol/week: 0.0 standard drinks Comment: socially Drug use: Not Currently Types: Marijuana The following portions of the patient's history were reviewed and updated as appropriate: allergies, current medications, past family history, past medical history, past social history, past surgicalhistory and problem list. Objective: BP 109/77 (BP Location: Right arm, Patient Position: Lying) Pulse (!) 100 Temp 98.7 F (37.1 C) (Oral) Resp 16 Ht 5' 6.14 Wt 113.7 kg (250 lb 12.4 oz) SpO2 96% BMI 40.30 kg/m Wt Readings from Last 3 Encounters: 01/28/19 113.7 kg (250 lb 12.4 oz) 01/04/19 113.4 kg (250 lb) 12/26/18 113.9 kg (251 lb) Physical Exam: Physical Exam Constitutional: He is oriented to person, place, and time. He appears well- developed and well-nourished. No distress. HENT: Head: Normocephalic and atraumatic. Mouth/Throat: Oropharynx is clear and moist. Eyes: Pupils are equal, round, and reactive to light. Conjunctivae and EOM are normal. Neck: Normal range of motion. Neck supple. Cardiovascular: Normal rate, regular rhythm, normal heart sounds and intact distal pulses. No murmur heard. Pulmonary/Chest: Effort normal and breath sounds normal. No respiratory distress. He has no wheezes. He has no rales. Abdominal: Soft. Musculoskeletal: Normal range of motion. General: No edema. Neurological: He is alert and oriented to person, place, and time. No cranial nerve deficit. Skin: Skin is warm and dry. No rash noted. No erythema. Psychiatric: He has a normal mood and affect. His behavior is normal. Judgment and thought content normal. Laboratory Review: BP 109/77 (BP Location: Right arm, Patient Position: Lying) Pulse (!) 100 Temp 98.7 F (37.1 C) (Oral) Resp 16 Ht 5' 6.14 Wt 113.7 kg (250 lb 12.4 oz) SpO2 96% BMI 40.30 kg/m Lab Results Component Value Date HGBA1C 6.5 (H) 01/20/2019 Glucose (mg/dL) Date Value 01/28/2019 105 (H) Creatinine (mg/dL) Date Value 01/28/2019 1.04 09/27/2018 1.0 01/09/2018 1.14 Lab Results Component Value Date CHOL 183 09/24/2014 TRIG 201 (A) 09/24/2014 HDL 34 (A) 09/24/2014 LDL 109 09/24/2014 Lab Results Component Value Date TSH 1.15 01/20/2019 T4, Free Date Value Ref Range Status 01/20/2019 1.0 0.7 - 1.7 ng/dL Final Lab Results Component Value Date WBC 10.07 01/28/2019 HGB 10.1 (L) 01/28/2019 HCT 30.5 (L) 01/28/2019 MCV 85.2 01/28/2019 PLT 212 01/28/2019 This SmartLink has not been configured with any valid records. This SmartLink has not been configured with any valid records. Laboratory and Additional Data Reviewed: Laboratory 01/28/19 8:35 AM Microbiology 01/28/19 8:35 AM Pathology 01/28/19 8:35 AM Cardiology 01/28/19 8:35 AM Medications 01/28/19 8:35 AM Thank you for this consultation, we will continue to follow this patient with you. * Kristin Walker PA-C - 01/28/2019 7:04 AM EST 01/28/19 Fernando Helton SUBJECTIVE: Patient sitting up to chair, legs in dependent position. Using cell phone and watching TV. Patient states he is feeling much better today. Denies abdominal pain. Reports able to have bowel movement on her own and passing a lot of flatus. OBJECTIVE: VITAL SIGNS: BP 109/77 (BP Location: Right arm, Patient Position: Lying) Pulse 99 Temp 98.7 F (37.1 C) (Oral) Resp 16 Ht 5' 6.14 Wt 113.7 kg (250 lb 12.4 oz) SpO2 93% BMI 40.30 kg/m Right IJ, temporary epicardial pacer: Off Labs: Recent Labs 01/26/19 0432 01/27/19 0605 01/28/19 0434 NA 135 131* 136 K 4.3 4.5 4.1 CL 102 97* 105 BICARB 24 23 26 BUN 21 43* 31* CREATININE 1.03 3.10* 1.04 GLUCOSE 116* 123* 105* Recent Labs 01/26/19 0432 01/27/19 0418 01/28/19 043 WBC 14.20* 16.03* 10.07 HGB 13.0* 11.2* 10.1* HCT 39.4* 33.9* 30.5* PLT 183 194 212 No results for input(s): INR in the last 72 hours. Current Medications: aspirin EC tablet 81 mg 81 mg, Oral, Daily Given, 81 mg at 01/27 931 atorvastatin (LIPITOR) tablet 20 mg 20 mg, Oral, at bedtime Given, 20 mg at 01/27 2025 bisacodyl (DULCOLAX) suppository 10 mg 10 mg, Rect, Daily Given, 10 mg at 01/27 1400 budesonide-formoterol (SYMBICORT) 160-4.5 mcg/actuation inhaler 2 puff 2 puff, Inhl, BID Given, 2 puff at 01/27 2119 clopidogrel (PLAVIX) tablet 75 mg 75 mg, Oral, Daily Given, 75 mg at 01/27 929 docusate sodium (COLACE) capsule 100 mg 100 mg, Oral, Daily Given, 100 mg at 01/27 929 enoxaparin (LOVENOX) syringe 40 mg 40 mg, SubQ, BID Given, 40 mg at 01/27 2025 ferrous sulfate tablet 325 mg 325 mg, Oral, TID with meals Given, 325 mg at 01/27 1700 insulin lispro (HumaLOG) injection 0-20 Units 0-20 Units, SubQ, at bedtime Given, 0 Units at 01/25 2055 insulin lispro (HumaLOG) injection 0-30 Units 0-30 Units, SubQ, TID AC Given, 0 Units at 01/27 0730 pantoprazole (PROTONIX) EC tablet 40 mg 40 mg, Oral, BID Given, 40 mg at 01/27 2025 sodium chloride (PF) (NS) flush 5 mL 5 mL, IV, Q8H JUVENCIO Given, 5 mL at 01/28 0539 oxyCODONE-acetaminophen (PERCOCET) 5-325 mg per tablet 1 tablet 1 tablet, Oral, Q2H PRN Given, 1 tablet at 01/270 acetaminophen (TYLENOL) tablet 650 mg 650 mg, Oral, Q4H PRN Given, 650 mg at 01/252 Drips: dextrose 5 % and sodium chloride 0.45 % EPINEPHrine infusion Stopped (01/27/19 1701) insulin regular - [facility], Protocol 1 IVP Bolus sodium chloride 0.9 % sodium chloride 0.9 % Stopped (01/24/19 1710) sodium chloride 0.9 % 100 mL/hr (01/28/19 0512) sodium chloride sodium chloride Physical Exam Constitutional: He is oriented to person, place, and time. He appears well- developed and well-nourished. No distress. Denies fever, chills, dyspnea, orthopnea, paroxysmal nocturnal dyspnea, chest pain, syncope nor near syncope. Patient states I feel great . Denies abdominal pain, feeling of drunkenness or any other complaints. HENT: Head: Normocephalic and atraumatic. Mouth/Throat: No oropharyngeal exudate. Eyes: Conjunctivae and EOM are normal. No scleral icterus. Neck: Normal range of motion. Neck supple. No thyromegaly present. Cardiovascular: Normal rate, regular rhythm, normal heart sounds and intact distal pulses. Exam reveals no gallop and no friction rub. No murmur heard. Normal sinus rhythm to sinus tachycardia on telemetry low 100s Pulmonary/Chest: Effort normal and breath sounds normal. No respiratory distress. He has no wheezes. He has no rales. Respirations even and unlabored. No obvious visible distress. Abdominal: Soft. Bowel sounds are normal. He exhibits no distension. There is no abdominal tenderness. There is no rebound. Genitourinary: Genitourinary Comments: No difficulty with voiding Musculoskeletal: Normal range of motion. General: Edema present. Neurological: He is alert and oriented to person, place, and time. Skin: Skin is warm and dry. No rash noted. He is not diaphoretic. No erythema. Clean, dry and intact. Edges well approximated. Steri-Strips clean, dry and intact. No drainage observed. Psychiatric: He has a normal mood and affect. His behavior is normal. Judgment and thought content normal. ASSESSMENT: Postoperative day #4, status post single-vessel coronary artery bypass grafting without the use of cardiopulmonary bypass by Dr. Blake Mcneil on 01/24/2019; past medical history: Reviewed Postoperative hyperglycemia on newly diagnosed diabetes mellitus type 2, managed by Dr. Melinda Fernandez Postoperative acute kidney injury, new onset, improved with gentle hydration with normal saline Postoperative hyponatremia, resolved Postoperative acute leukocytosis, upward trending secondary to hypoventilation and bilateral posterior flank pain, resolved Postoperative acute surgical blood loss anemia, downward trending, secondary to possible dilution, downward trending Postoperative symptomatic hypotension, secondary to medication administration, resolved with gentlehydration and cessation of beta-blockade and antihypertensive medications PLAN: Lopressor 25 mg twice daily Remove right IJ Stop 0.9% normal saline Discharge EKG in anticipation for discharge tomorrow on 01/29/2019 Cancel general surgery consultation Consider losartan in outpatient setting CPT: 10543 * Louise Caruso RN - 01/27/2019 12:59 PM EST DISCHARGE PLAN PROGRESS NOTE Date: 01/27/2019 Time: 12:59 PM Patient Name: Fernando Helton Date of : 1970 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 He is from home with his spouse and is s/p Cabg post op day #3 An echo has been ordered along with a kub. * Johan Koch PA-C - 01/27/2019 7:44 AM EST Patient ID: Patient Name: Fernando Helton Admit Date: 01/17/2019 MR #: [id number] : 1970 Current location: [facility] Physicians: Moises Patel MD (Family); Kristin BARCENAS (Referring) Reason for consult: Type 2 diabetes New diagnosis Assessment/Plan: Dx: Type 2 diabetes, under good control. Newly diagnosed during this admission. Currently diet controlled. Currently taking as outpatient: No oral hypoglycemic medications Current Hemoglobin A1C= 6.5% 01/20/19 Lab Results Component Value Date HGBA1C 6.5 (H) 01/20/2019 NOTES: 01/21: BG reviewed since admission. Patient presented to the hospital with chest pain and underwentheart cath 01/20. Stent to LAD is occluded and the patient will need CABG surgery. CT surgery has seen the patient and plan is to move forward with surgery on Sunday. Patient has not had any diabetes treatment during this hospital stay as he was just found to have an elevated A1C., of 6.5%. Patient h as never been told he has diabetes. 01/22: BG reviewed over last 24 hours. Patient is currently on SSI only. 01/23 BG reviewed. Discussed with patient that he meets the criteria for type 2 diabetes mellitus, currently is diet controlled. His has type 2 diabetes mellitus and is on insulin therapy. He will be making some dietary changes, and will stop drinking regular sodas. Scheduled for CABG tomorrow. 01/25 BG reviewed. He is currently on IV insulin POD #1. 01/26 BG reviewed. IV insulin discontinued and patient is on sliding scale. 01/27: BG reviewed and is stable, did not require any SSI yesterday. Blood Glucoses: 01/20: 134 (from Chemistry 01/20 AM) 01/21: 116---119---175---147 01/22: 125---116---107---142 01/23 124---106---110---163 01/24 169---169---131---132 01/25 129---132--127---117---119---129---109---125 01/26 110---117---111---112---128 01/27 117--- Plan: 1. Rx changes: see below Adjust diet to CHO controlled Check BG QAC/HS. 01/22: CPM. 01/23 continue to monitor BG with sliding scale as needed. He will need IV insulin postoperatively.We will start glimepiride if needed; would be a good candidate for metformin in the future. 01/25 Will continue IV insulin throughout day. May consider stopping IV insulin later in day.will place sliding scale orders. 01/26 Continue SSI. Consider glimepiride if needed for BG control. When recovered from surgery, would recommend metformin if EF and creat stable. He will need to check BG BID-QID at home after discharge. 01/27: CPM. No evidence for need of glimepiride at this time. Will monitor results of echo today, monitor creat for contraindications of outpatient metformin. 2. Education: Reviewed ABCs of diabetes management (respective goals in parentheses): A1C (7.0-8.0), blood pressure (<130/80), and cholesterol (LDL <100). Referral to Diabetes Education Referral to Nutrition therapy Subjective: Interval HPI: 01/22: No complaints. 01/23 patient has no chest pain or shortness of breath today. 01/25 Patient with surgical chest pain. 01/26 Patient with pain in chest after CT removal. 01/27: NPO for concern of an ileus, pt complaining of some flank pain and upset stomach. Brief HPI: Mr. Helton is a 48-year-old male patient presented to the emergency department on 01/20/2019 for complaints of chest pain. His initial evaluation was negative however he was admitted the hospital for further observation/management. Patient was seen and evaluated by cardiology and subsequently underwent a cardiac catheterization on 01/20/2019. Patient was found to have an occluded LAD stent, that hadbeen previously placed about 3 to 4 years ago. He was referred to CT surgery for bypass graft surgery in the near future. CT surgery came to evaluate the patient and ordered a hemoglobin A1c. He was found to have a hemoglobin A1c of 6.5%, and is also been noted to have 2 elevated blood sugar valuesduring his hospital stay. Endocrinology was consulted to further evaluate the patient and provide further treatment recommendations. Patient reports he is never been told he has diabetes. He is also never been told he even had impaired fasting blood glucose. He reports that his maternal family has a history of type 2 diabetes, especially in his uncle. The patient reports he drinks regular pop, at least 2 cans of Pepsi every day.He has been drinking more than that until recently he cut down. He does typically avoid concentrated sweets. The patient also suffers from coronary artery disease, hypertension and hyperlipidemia. Yenifer suffers from ischemic systolic heart failure and is followed by Pallavi David clinical nurse specialist in our heart failure clinic. Patient suffers from COPD and sleep apnea and is supposed to be wearing a CPAP however he is now always compliant with. Again upon further evaluation the patient wasfound to have an elevated hemoglobin A1c of 6.5% on 01/20/2019. Complications of diabetes include: Retinopathy: Negative Nephropathy: Negative Peripheral Neuropathy: Negative Autonomic Neuropathy: Negative Allergies: Allergies Allergen Reactions Imdur [Isosorbide Mononitrate] Caused severe headache and had to stop it. Home Medications: Outpatient Medications Marked as Taking for the 01/17/19 encounter (Hospital Encounter): albuterol 90 mcg/actuation inhaler, Inhale 2 puffs every 6 (six) hours as needed for wheezing or shortness of breath . aspirin 81 MG EC tablet, Take 81 mg by mouth daily. atorvastatin (LIPITOR) 20 MG tablet, Take 1 (one) tablet (20 mg total) by mouth daily . budesonide-formoterol (Symbicort) 160-4.5 mcg/actuation inhaler, Inhale 2 puffs 2 (two) times a day. carvedilol (COREG) 25 MG tablet, Take 1 (one) tablet (25 mg total) by mouth 2 (two) times a day with meals . enalapril (VASOTEC) 5 MG tablet, Take 5 mg by mouth 2 (two) times a day . furosemide (LASIX) 40 MG tablet, Take 1 (one) tablet (40 mg total) by mouth daily . ipratropium-albuterol (DUO-NEB) 0.5-2.5 mg/3 ml nebulizer, Take 3 mL by nebulization every 6 (six) hours . omeprazole (PRILOSEC) 40 MG capsule, Take 40 mg by mouth daily potassium chloride (K-DUR) 10 MEQ CR tablet, Take 10 mEq by mouth 2 (two) times a day . prasugrel (EFFIENT) 10 mg tablet, Take 1 (one) tablet (10 mg total) by mouth daily . rOPINIRole (REQUIP) 2 MG tablet, Take 2 mg by mouth nightly. varenicline (CHANTIX) 1 mg tablet, Take 1 mg by mouth 2 (two) times a day . Current Medications: aspirin 81 mg Oral Daily atorvastatin 20 mg Oral at bedtime bisacodyl 10 mg Rectal Daily budesonide-formoterol 2 puff Inhalation BID clopidogrel 75 mg Oral Daily docusate sodium 100 mg Oral Daily enoxaparin (LOVENOX) injection 40 mg Subcutaneous BID ferrous sulfate 325 mg Oral TID with meals insulin lispro 0-20 Units Subcutaneous at bedtime insulin lispro 0-30 Units Subcutaneous TID AC pantoprazole 40 mg Oral BID sodium chloride (PF) 5 mL Intravenous Q8H JUVENCIO sodium chloride 0.9% 500 mL Intravenous Once acetaminophen OR acetaminophen, albumin human, dextrose 5 % and sodium chloride 0.45 %, hydrALAZINE, insulin regular - [facility], Protocol 1 IVP Bolus, levalbuterol, nalOXone AND Notify physician AND naloxone, ondansetron, oxyCODONE-acetaminophen, perflutren lipid microspheres, Saline lock IV AND sodium chloride (PF) AND sodium chloride (PF) AND sodium chloride 0.9 % Review of Systems: Review of Systems Constitutional: Negative for appetite change, fatigue and unexpected weight change. HENT: Negative. Eyes: Negative. Respiratory: Negative for chest tightness and shortness of breath. Cardiovascular: Negative for chest pain and leg swelling. Gastrointestinal: Positive for abdominal pain. Negative for constipation, diarrhea, nausea and vomiting. Endocrine: Negative for cold intolerance, heat intolerance, polydipsia, polyphagia and polyuria. Genitourinary: Positive for flank pain. Negative for frequency. Musculoskeletal: Negative for arthralgias and myalgias. Skin: Negative for rash. Neurological: Negative for dizziness, tremors, weakness and headaches. Psychiatric/Behavioral: Negative for sleep disturbance. History: Past Medical History: Diagnosis Date Acute respiratory failure (HCC) 09/2014 requring mechanical ventilation Anxiety Bilateral lower extremity edema R > L CAD (coronary artery disease) CAD s/p [facility] with 1 stent in left main 07/2012, replaced 09/2014 Cardiac arrest with ventricular fibrillation ([facility]) 09/25/2014 CHF (congestive heart failure), NYHA class I, chronic, diastolic ([facility]) Chronic sinusitis Claudication of right lower extremity ([facility]) Cluster headache COPD (chronic obstructive pulmonary disease) ([facility]) 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 Bev Tolentino Metabolic syndrome Mood disorder ([facility]) Nasal fracture Obstructive sleep apnea noncompliant with CPAP Orthostatic dizziness with intermittent syncope Pericarditis 02/25/07; 09/23/17 Pneumomediastinum (HCC) 01/12/2007 secondary to severe coughing spell & ruptured alveoli Rotator cuff tear, right 1998 s/p repair SLAP tear of shoulder 2011 left - s/p surgery to place [address] elevation myocardial infarction (STEMI) of anterolateral wall ([facility]) 05/09/2012 anterolateral STEMI involving left anterior descending coronary artery ([facility]) 09/25/2014 anterior Superficial thrombophlebitis of right upper extremity 12/26/2006 Past Surgical History: Procedure Laterality Date APPENDECTOMY 1998 BONE MARROW BIOPSY W/ ASPIRATION Left 11/27/2016 L posterior iliac crest; Dr. Bev Tolentino CARDIAC CATHETERIZATION 09/24/2014 Segment LV dysf., mild to moderate LV systolic impairment, moderate LV diastolic dysf.; single vessel CAD by Dr. Whitney CARDIAC CATHETERIZATION 05/09/2012 Emergent. Severe LVSD EF 20%; single vessel CAD with acute thrombotic occlusion of left anterior descending by Dr. Rowland CARDIAC CATHETERIZATION Left 09/28/2015 Dr. 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 Normal LV end-diastolic pressure. CARDIAC CATHETERIZATION 01/14/[address] Phillips CARDIAC CATHETERIZATION 11/24/[address] Rowland COLONOSCOPY 05/27/2015 CORONARY ANGIOPLASTY 12/25/2014 PCI with balloon angioplasty by Dr. Whitney of jailed diagonal CORONARY STENT PLACEMENT 05/09/2012 Drug eluted Alpine stent in the left anterior descending by Dr. Rowland CORONARY STENT PLACEMENT 09/24/2014 Subacute stent thrombosis by Dr. Whitney. This may be in the setting of areas of restenosis within the LAD stent ETHMOIDECTOMY Bilateral 06/25/[address] Gaitan [facility] LEFT HEART CATH N/A 01/20/2019 Procedure: Left Heart Cath; Surgeon: Carlo Mercedes MD; Location: [facility]; Service: Cardiovascular IABP placement 05/09/[address] Rowland NASAL SEPTUM SURGERY 06/25/[address] Gaitan ROTATOR CUFF REPAIR Right 1997 SHOULDER ARTHROSCOPY W/ SUPERIOR LABRAL ANTERIOR POSTERIOR REPAIR Left 11/2012 @ [facility] SHOULDER ARTHROSCOPY W/ SUPERIOR LABRAL ANTERIOR POSTERIOR REPAIR Left 11/22/2011 shoulder arthroscopic anterior capsulorraphy, SLAP repair, acromioplasty, limited debridement of labrum and rotator cuff by Dr. Sexton SINUSOTOMY Bilateral 06/25/2007 with removal of tissue by Dr. Gaitan UPPER GASTROINTESTINAL ENDOSCOPY 2016 Family History Problem Relation Age of Onset Heart attack Father Heart disease Father s/p cabg x 4 in his 40s Coronary artery disease Father Hypertension Father Hyperlipidemia Father Heart disease Mother Stroke Mother 64 Hyperlipidemia Mother Coronary artery disease Other Cancer Paternal Uncle unknown cancer Hypertension Sister Diabetes Brother Heart disease Brother s/p PCI Melanoma Brother Social History Tobacco Use Smoking status: Former Smoker Packs/day: 1.00 Years: 35.00 Pack years: 35.00 Last attempt to quit: 05/12/2016 Years since quittin.7 Smokeless tobacco: Never Used Tobacco comment: Quit Substance Use Topics Alcohol use: Yes Alcohol/week: 0.0 standard drinks Comment: socially Drug use: Not Currently Types: Marijuana The following portions of the patient's history were reviewed and updated as appropriate: allergies, current medications, past family history, past medical history, past social history, past surgicalhistory and problem list. Objective: BP (!) 92/48 Pulse (!) 101 Temp 98.4 F (36.9 C) (Oral) Resp 16 Ht 5' 6.14 Wt 113.4 kg (250 lb) SpO2 94% BMI 40.18 kg/m Wt Readings from Last 3 Encounters: 01/27/19 113.4 kg (250 lb) 01/04/19 113.4 kg (250 lb) 12/26/18 113.9 kg (251 lb) Physical Exam: Physical Exam Constitutional: He is oriented to person, place, and time. He appears well- developed and well-nourished. No distress. HENT: Head: Normocephalic and atraumatic. Mouth/Throat: Oropharynx is clear and moist. Eyes: Pupils are equal, round, and reactive to light. Conjunctivae and EOM are normal. Neck: Normal range of motion. Neck supple. Cardiovascular: Normal rate, regular rhythm, normal heart sounds and intact distal pulses. No murmur heard. Pulses: Dorsalis pedis pulses are 2+ on the right side and 2+ on the left side. Pulmonary/Chest: Effort normal and breath sounds normal. No respiratory distress. He has no wheezes. He has no rales. Abdominal: Soft. Bowel sounds are normal. Musculoskeletal: Normal range of motion. General: No edema. Right foot: Normal. Normal range of motion. No swelling or deformity. Left foot: Normal. Normal range of motion. No swelling or deformity. Neurological: He is alert and oriented to person, place, and time. No cranial nerve deficit. Skin: Skin is warm and dry. No rash noted. No erythema. Psychiatric: He has a normal mood and affect. His behavior is normal. Judgment and thought content normal. Laboratory Review: BP (!) 92/48 Pulse (!) 101 Temp 98.4 F (36.9 C) (Oral) Resp 16 Ht 5' 6.14 Wt 113.4 kg (250 lb) SpO2 94% BMI 40.18 kg/m Lab Results Component Value Date HGBA1C 6.5 (H) 01/20/2019 Glucose (mg/dL) Date Value 01/27/2019 123 (H) Creatinine (mg/dL) Date Value 01/27/2019 3.10 (H) 09/27/2018 1.0 01/09/2018 1.14 Lab Results Component Value Date CHOL 183 09/24/2014 TRIG 201 (A) 09/24/2014 HDL 34 (A) 09/24/2014 LDL 109 09/24/2014 Lab Results Component Value Date TSH 1.15 01/20/2019 T4, Free Date Value Ref Range Status 01/20/2019 1.0 0.7 - 1.7 ng/dL Final Lab Results Component Value Date WBC 16.03 (H) 01/27/2019 HGB 11.2 (L) 01/27/2019 HCT 33.9 (L) 01/27/2019 MCV 85.6 01/27/2019 PLT 194 01/27/2019 This SmartLink has not been configured with any valid records. This SmartLink has not been configured with any valid records. Laboratory and Additional Data Reviewed: Laboratory 01/27/19 7:44 AM Microbiology 01/27/19 7:44 AM Pathology 01/27/19 7:44 AM Cardiology 01/27/19 7:44 AM Medications 01/27/19 7:44 AM Thank you for this consultation, we will continue to follow this patient with you. Electronically signed by: Johan Koch PA-C, [facility] 01/27/19 7:47 AM * Kristin Walker PA-C - 01/27/2019 6:44 AM EST 01/27/19 Fernando Helton SUBJECTIVE: Patient resting sitting up in chair, no obvious visible distress. Bladder scan in progress. Patient denies difficulty with voiding however is in low volume. Complains of bilateral posterior flank pain. OBJECTIVE: VITAL SIGNS: BP (!) 86/55 Pulse 96 Temp 98.8 F (37.1 C) (Oral) Resp 16 Ht 5' 6.14 Wt 113.4 kg (250 lb) SpO2 93% BMI 40.18 kg/m Right IJ, temporary epicardial pacer: Off Labs: Recent Labs 01/25/19 0410 01/26/19 0432 01/27/19 0605 NA 132* 135 131* K 4.5 4.3 4.5 CL 100 102 97* BICARB 24 24 23 BUN 22 21 43* CREATININE 1.20 1.03 3.10* GLUCOSE 141* 116* 123* Recent Labs 01/25/19 0410 01/25/19 1332 01/26/19 0432 01/27/19 0418 WBC 15.83* -- 14.20* 16.03* HGB 12.9* 14.4 13.0* 11.2* HCT 38.5* 44.2 39.4* 33.9* PLT 211 -- 183 194 Recent Labs 01/24/19 0935 01/24/19 1043 01/24/19 1628 INR 1.1 1.1 1.0 Current Medications: aspirin EC tablet 81 mg 81 mg, Oral, Daily Given, 81 mg at 01/26 937 atorvastatin (LIPITOR) tablet 20 mg 20 mg, Oral, at bedtime Given, 20 mg at 01/26 2017 bisacodyl (DULCOLAX) suppository 10 mg 10 mg, Rect, Daily Given, 10 mg at 01/26 0853 budesonide-formoterol (SYMBICORT) 160-4.5 mcg/actuation inhaler 2 puff 2 puff, Inhl, BID Given, 2 puff at 01/26 2023 carvedilol (COREG) tablet 25 mg 25 mg, Oral, BID Given, 25 mg at 01/26 2017 clopidogrel (PLAVIX) tablet 75 mg 75 mg, Oral, Daily Ordered docusate sodium (COLACE) capsule 100 mg 100 mg, Oral, Daily Given, 100 mg at 12/15 0937 enoxaparin (LOVENOX) syringe 40 mg 40 mg, SubQ, BID Given, 40 mg at 01/26 2017 ferrous sulfate tablet 325 mg 325 mg, Oral, TID with meals Given, 325 mg at 01/26 165 insulin lispro (HumaLOG) injection 0-20 Units 0-20 Units, SubQ, at bedtime Given, 0 Units at 01/25 2055 insulin lispro (HumaLOG) injection 0-30 Units 0-30 Units, SubQ, TID AC Given, 0 Units at 01/26 163 lisinopril (PRINIVIL,ZESTRIL) tablet 2.5 mg 2.5 mg, Oral, BID Given, 2.5 mg at 01/26 2017 pantoprazole (PROTONIX) EC tablet 40 mg 40 mg, Oral, BID Given, 40 mg at 01/26 2017 sodium chloride (PF) (NS) flush 5 mL 5 mL, IV, Q8H JUVENCIO Given, 5 mL at 01/27 606 acetaminophen (TYLENOL) tablet 650 mg 650 mg, Oral, Q4H PRN Given, 650 mg at 01/25 2102 oxyCODONE-acetaminophen (PERCOCET) 5-325 mg per tablet 1 tablet 1 tablet, Oral, Q2H PRN Given, 1 tablet at 01/27 606 Drips: dextrose 5 % and sodium chloride 0.45 % insulin regular - [facility], Protocol 1 IVP Bolus sodium chloride 0.9 % sodium chloride 0.9 % Stopped (01/24/19 1710) sodium chloride sodium chloride Physical Exam Constitutional: He is oriented to person, place, and time. He appears well- developed and well-nourished. No distress. Denies fever, chills, dyspnea, orthopnea, paroxysmal nocturnal dyspnea, chest pain, syncope nor near syncope. Complains of feeling drunk and dizziness with ambulation this morning, new onset. Complains of pain/discomfort to bilateral posterior flanks. HENT: Head: Normocephalic and atraumatic. Mouth/Throat: No oropharyngeal exudate. Eyes: Pupils are equal, round, and reactive to light. EOM are normal. No scleral icterus. Neck: Normal range of motion. Neck supple. No thyromegaly present. Cardiovascular: Normal rate, regular rhythm, normal heart sounds and intact distal pulses. Exam reveals no gallop and no friction rub. No murmur heard. Normal sinus rhythm on telemetry Pulmonary/Chest: Effort normal and breath sounds normal. No respiratory distress. He has no wheezes. He has no rales. Respirations even and unlabored. No obvious visible distress. Abdominal: Soft. Bowel sounds are normal. He exhibits no distension. There is no abdominal tenderness. There is no rebound and no guarding. Round, nontender with palpation. Last bowel movement: 01/26/2019 Musculoskeletal: Normal range of motion. General: No edema. Comments: Bilateral PRASAD hose: On Neurological: He is alert and oriented to person, place, and time. Skin: Skin is warm and dry. He is not diaphoretic. No erythema. Psychiatric: He has a normal mood and affect. His behavior is normal. Judgment and thought content normal. ASSESSMENT: Postoperative day #3, status post single-vessel coronary artery bypass grafting without the use of cardiopulmonary bypass by Dr. Blake Mcneil on 01/24/2019; past medical history: Reviewed Postoperative hyperglycemia on newly diagnosed diabetes mellitus type 2, managed by Dr. Melinda Fernandez Postoperative acute kidney injury, new onset Postoperative hyponatremia Postoperative acute leukocytosis, upward trending secondary to hypoventilation and bilateral posterior flank pain Postoperative acute surgical blood loss anemia, downward trending, secondary to possible dilution PLAN: Transthoracic limited echocardiography to assess LV function 500 mL 0.9% normal saline bolus Stop lisinopril Stop Coreg IV Tylenol x24 hours for pain KUB Serum troponin x3 CPT: 80171 * Melinda Fernandez MD - 01/26/2019 7:51 AM EST Patient ID: Patient Name: Fernando Helton Admit Date: 01/17/2019 MR #: [id number] : 1970 Current location: [facility] Physicians: Moises Patel MD (Family); Kristin BARCENAS (Referring) Reason for consult: Type 2 diabetes New diagnosis Assessment/Plan: Dx: Type 2 diabetes, under good control. Newly diagnosed during this admission. Currently diet controlled. Currently taking as outpatient: No oral hypoglycemic medications Current Hemoglobin A1C= 6.5% 01/20/19 Lab Results Component Value Date HGBA1C 6.5 (H) 01/20/2019 NOTES: 01/21: BG reviewed since admission. Patient presented to the hospital with chest pain and underwentheart cath 01/20. Stent to LAD is occluded and the patient will need CABG surgery. CT surgery has seen the patient and plan is to move forward with surgery on Sunday. Patient has not had any diabetes treatment during this hospital stay as he was just found to have an elevated A1C., of 6.5%. Patient h as never been told he has diabetes. 01/22: BG reviewed over last 24 hours. Patient is currently on SSI only. 01/23 BG reviewed. Discussed with patient that he meets the criteria for type 2 diabetes mellitus, currently is diet controlled. His has type 2 diabetes mellitus and is on insulin therapy. He will be making some dietary changes, and will stop drinking regular sodas. Scheduled for CABG tomorrow. 01/25 BG reviewed. He is currently on IV insulin POD #1. 01/26 BG reviewed. IV insulin discontinued and patient is on sliding scale. Blood Glucoses: 01/20: 134 (from Chemistry 01/20 AM) 01/21: 116---119---175---147 01/22: 125---116---107---142 01/23 124---106---110---163 01/24 169---169---131---132 01/25 129---132--127---117---119---129---109---125 01/26 110---117 Plan: 1. Rx changes: see below Adjust diet to CHO controlled Check BG QAC/HS. 01/22: CPM. 01/23 continue to monitor BG with sliding scale as needed. He will need IV insulin postoperatively.We will start glimepiride if needed; would be a good candidate for metformin in the future. 01/25 Will continue IV insulin throughout day. May consider stopping IV insulin later in day.will place sliding scale orders. 01/26 Continue SSI. Consider glimepiride if needed for BG control. When recovered from surgery, would recommend metformin if EF and creat stable. He will need to check BG BID-QID at home after discharge. 2. Education: Reviewed ABCs of diabetes management (respective goals in parentheses): A1C (7.0-8.0), blood pressure (<130/80), and cholesterol (LDL <100). Referral to Diabetes Education Referral to Nutrition therapy Subjective: Interval HPI: 01/22: No complaints. 01/23 patient has no chest pain or shortness of breath today. 01/25 Patient with surgical chest pain. 01/26 Patient with pain in chest after CT removal. Brief HPI: Mr. Helton is a 48-year-old male patient presented to the emergency department on 01/20/2019 for complaints of chest pain. His initial evaluation was negative however he was admitted the hospital for further observation/management. Patient was seen and evaluated by cardiology and subsequently underwent a cardiac catheterization on 01/20/2019. Patient was found to have an occluded LAD stent, that hadbeen previously placed about 3 to 4 years ago. He was referred to CT surgery for bypass graft surgery in the near future. CT surgery came to evaluate the patient and ordered a hemoglobin A1c. He was found to have a hemoglobin A1c of 6.5%, and is also been noted to have 2 elevated blood sugar valuesduring his hospital stay. Endocrinology was consulted to further evaluate the patient and provide further treatment recommendations. Patient reports he is never been told he has diabetes. He is also never been told he even had impaired fasting blood glucose. He reports that his maternal family has a history of type 2 diabetes, especially in his uncle. The patient reports he drinks regular pop, at least 2 cans of Pepsi every day.He has been drinking more than that until recently he cut down. He does typically avoid concentrated sweets. The patient also suffers from coronary artery disease, hypertension and hyperlipidemia. Yenifer suffers from ischemic systolic heart failure and is followed by Pallavi David clinical nurse specialist in our heart failure clinic. Patient suffers from COPD and sleep apnea and is supposed to be wearing a CPAP however he is now always compliant with. Again upon further evaluation the patient wasfound to have an elevated hemoglobin A1c of 6.5% on 01/20/2019. Complications of diabetes include: Retinopathy: Negative Nephropathy: Negative Peripheral Neuropathy: Negative Autonomic Neuropathy: Negative Allergies: Allergies Allergen Reactions Imdur [Isosorbide Mononitrate] Caused severe headache and had to stop it. Home Medications: Outpatient Medications Marked as Taking for the 01/17/19 encounter (Hospital Encounter): albuterol 90 mcg/actuation inhaler, Inhale 2 puffs every 6 (six) hours as needed for wheezing or shortness of breath . aspirin 81 MG EC tablet, Take 81 mg by mouth daily. atorvastatin (LIPITOR) 20 MG tablet, Take 1 (one) tablet (20 mg total) by mouth daily . budesonide-formoterol (Symbicort) 160-4.5 mcg/actuation inhaler, Inhale 2 puffs 2 (two) times a day. carvedilol (COREG) 25 MG tablet, Take 1 (one) tablet (25 mg total) by mouth 2 (two) times a day with meals . enalapril (VASOTEC) 5 MG tablet, Take 5 mg by mouth 2 (two) times a day . furosemide (LASIX) 40 MG tablet, Take 1 (one) tablet (40 mg total) by mouth daily . ipratropium-albuterol (DUO-NEB) 0.5-2.5 mg/3 ml nebulizer, Take 3 mL by nebulization every 6 (six) hours . omeprazole (PRILOSEC) 40 MG capsule, Take 40 mg by mouth daily potassium chloride (K-DUR) 10 MEQ CR tablet, Take 10 mEq by mouth 2 (two) times a day . prasugrel (EFFIENT) 10 mg tablet, Take 1 (one) tablet (10 mg total) by mouth daily . rOPINIRole (REQUIP) 2 MG tablet, Take 2 mg by mouth nightly. varenicline (CHANTIX) 1 mg tablet, Take 1 mg by mouth 2 (two) times a day . Current Medications: aspirin 81 mg Oral Daily budesonide-formoterol 2 puff Inhalation BID carvedilol 6.25 mg Oral BID ceFAZolin (ANCEF) IVPB 2,000 mg Intravenous Q8H docusate sodium 100 mg Oral Daily enoxaparin (LOVENOX) injection 40 mg Subcutaneous BID ferrous sulfate 325 mg Oral TID with meals insulin lispro 0-20 Units Subcutaneous at bedtime insulin lispro 0-30 Units Subcutaneous TID AC mupirocin Nasal BID pantoprazole 40 mg Oral BID sodium chloride (PF) 5 mL Intravenous Q8H JUVENCIO vancomycin 1,250 mg Intravenous Q12H vancomycin per pharmacy 1 each Intravenous as indicated by pharmacokinetics acetaminophen OR acetaminophen, albumin human, dextrose 5 % and sodium chloride 0.45 %, dextrose 50 % in water (D50W), hydrALAZINE, insulin regular - [facility], Protocol 1 IVP Bolus, levalbuterol, nalOXone AND Notify physician AND naloxone, ondansetron, oxyCODONE-acetaminophen, Saline lock IV AND sodium chloride (PF) AND sodium chloride (PF) AND sodium chloride 0.9 % Review of Systems: Review of Systems Constitutional: Negative for appetite change, fatigue and unexpected weight change. HENT: Negative. Eyes: Negative. Respiratory: Negative for chest tightness and shortness of breath. Cardiovascular: Positive for chest pain. Negative for leg swelling. Gastrointestinal: Negative for abdominal pain, constipation, diarrhea, nausea and vomiting. Endocrine: Negative for cold intolerance, heat intolerance, polydipsia, polyphagia and polyuria. Genitourinary: Negative for frequency. Musculoskeletal: Negative for arthralgias and myalgias. Skin: Negative for rash. Neurological: Negative for dizziness, tremors, weakness and headaches. Psychiatric/Behavioral: Negative for sleep disturbance. History: Past Medical History: Diagnosis Date Acute respiratory failure ([facility]) 09/2014 requring mechanical ventilation Anxiety Bilateral lower extremity edema R > L CAD (coronary artery disease) CAD s/p [facility] with 1 stent in left main 07/2012, replaced 09/2014 Cardiac arrest with ventricular fibrillation ([facility]) 09/25/2014 CHF (congestive heart failure), NYHA class I, chronic, diastolic ([facility]) Chronic sinusitis Claudication of right lower extremity ([facility]) Cluster headache COPD (chronic obstructive pulmonary disease) ([facility]) 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 Bev Tolentino Metabolic syndrome Mood disorder ([facility]) Nasal fracture Obstructive sleep apnea noncompliant with CPAP Orthostatic dizziness with intermittent syncope Pericarditis 02/25/07; 09/23/17 Pneumomediastinum (HCC) 01/12/2007 secondary to severe coughing spell & ruptured alveoli Rotator cuff tear, right 1997 s/p repair SLAP tear of shoulder 2011 left - s/p surgery to place [address] elevation myocardial infarction (STEMI) of anterolateral wall ([facility]) 05/09/2012 anterolateral STEMI involving left anterior descending coronary artery (HCC) 09/25/2014 anterior Superficial thrombophlebitis of right upper extremity 12/26/2006 Past Surgical History: Procedure Laterality Date APPENDECTOMY 1998 BONE MARROW BIOPSY W/ ASPIRATION Left 11/27/2016 L posterior iliac crest; Dr. Bev Tolentino CARDIAC CATHETERIZATION 09/24/2014 Segment LV dysf., mild to moderate LV systolic impairment, moderate LV diastolic dysf.; single vessel CAD by Dr. Whitney CARDIAC CATHETERIZATION 05/09/2012 Emergent. Severe LVSD EF 20%; single vessel CAD with acute thrombotic occlusion of left anterior descending by Dr. Rowland CARDIAC CATHETERIZATION Left 09/28/2015 Dr. 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 Normal LV end-diastolic pressure. CARDIAC CATHETERIZATION 01/14/[address] Phillips CARDIAC CATHETERIZATION 11/24/[address] Rowland COLONOSCOPY 05/27/2015 CORONARY ANGIOPLASTY 12/25/2014 PCI with balloon angioplasty by Dr. Whitney of jailed diagonal CORONARY STENT PLACEMENT 05/09/2012 Drug eluted Alpine stent in the left anterior descending by Dr. Rowland CORONARY STENT PLACEMENT 09/24/2014 Subacute stent thrombosis by Dr. Whitney. This may be in the setting of areas of restenosis within the LAD stent ETHMOIDECTOMY Bilateral 06/25/[address] Gaitan HC LEFT HEART CATH N/A 01/20/2019 Procedure: Left Heart Cath; Surgeon: Carlo Mercedes MD; Location: [facility]; Service: Cardiovascular IABP placement 05/09/[address] Rowland NASAL SEPTUM SURGERY 06/25/[address] Gaitan ROTATOR CUFF REPAIR Right 1997 SHOULDER ARTHROSCOPY W/ SUPERIOR LABRAL ANTERIOR POSTERIOR REPAIR Left 11/2012 @ [facility] SHOULDER ARTHROSCOPY W/ SUPERIOR LABRAL ANTERIOR POSTERIOR REPAIR Left 11/22/2011 shoulder arthroscopic anterior capsulorraphy, SLAP repair, acromioplasty, limited debridement of labrum and rotator cuff by Dr. Sexton SINUSOTOMY Bilateral 06/25/2007 with removal of tissue by Dr. Gaitan UPPER GASTROINTESTINAL ENDOSCOPY 2016 Family History Problem Relation Age of Onset Heart attack Father Heart disease Father s/p cabg x 4 in his 40s Coronary artery disease Father Hypertension Father Hyperlipidemia Father Heart disease Mother Stroke Mother 64 Hyperlipidemia Mother Coronary artery disease Other Cancer Paternal Uncle unknown cancer Hypertension Sister Diabetes Brother Heart disease Brother s/p PCI Melanoma Brother Social History Tobacco Use Smoking status: Former Smoker Packs/day: 1.00 Years: 35.00 Pack years: 35.00 Last attempt to quit: 05/12/2016 Years since quittin.7 Smokeless tobacco: Never Used Tobacco comment: Quit Substance Use Topics Alcohol use: Yes Alcohol/week: 0.0 standard drinks Comment: socially Drug use: Not Currently Types: Marijuana The following portions of the patient's history were reviewed and updated as appropriate: allergies, current medications, past family history, past medical history, past social history, past surgicalhistory and problem list. Objective: BP 134/77 Pulse (!) 107 Temp 98.3 F (36.8 C) (Oral) Resp 18 Ht 5' 6.14 Wt 113.3 kg (249 lb 10.7 oz) SpO2 92% BMI 40.13 kg/m Wt Readings from Last 3 Encounters: 01/26/19 113.3 kg (249 lb 10.7 oz) 01/04/19 113.4 kg (250 lb) 12/26/18 113.9 kg (251 lb) Physical Exam: Physical Exam Constitutional: He is oriented to person, place, and time. He appears well- developed and well-nourished. No distress. HENT: Head: Normocephalic and atraumatic. Mouth/Throat: Oropharynx is clear and moist. Eyes: Pupils are equal, round, and reactive to light. Conjunctivae and EOM are normal. Neck: Normal range of motion. Neck supple. Cardiovascular: Normal rate, regular rhythm, normal heart sounds and intact distal pulses. No murmur heard. Pulses: Dorsalis pedis pulses are 2+ on the right side and 2+ on the left side. Pulmonary/Chest: Effort normal and breath sounds normal. No respiratory distress. He has no wheezes. He has no rales. Abdominal: Soft. Bowel sounds are normal. Musculoskeletal: Normal range of motion. General: No edema. Right foot: Normal. Normal range of motion. No swelling or deformity. Left foot: Normal. Normal range of motion. No swelling or deformity. Neurological: He is alert and oriented to person, place, and time. No cranial nerve deficit. Skin: Skin is warm and dry. No rash noted. No erythema. Psychiatric: He has a normal mood and affect. His behavior is normal. Judgment and thought content normal. Laboratory Review: BP 134/77 Pulse (!) 107 Temp 98.3 F (36.8 C) (Oral) Resp 18 Ht 5' 6.14 Wt 113.3 kg (249 lb 10.7 oz) SpO2 92% BMI 40.13 kg/m Lab Results Component Value Date HGBA1C 6.5 (H) 01/20/2019 Glucose (mg/dL) Date Value 01/26/2019 116 (H) Creatinine (mg/dL) Date Value 01/26/2019 1.03 09/27/2018 1.0 01/09/2018 1.14 Lab Results Component Value Date CHOL 183 09/24/2014 TRIG 201 (A) 09/24/2014 HDL 34 (A) 09/24/2014 LDL 109 09/24/2014 Lab Results Component Value Date TSH 1.15 01/20/2019 T4, Free Date Value Ref Range Status 01/20/2019 1.0 0.7 - 1.7 ng/dL Final Lab Results Component Value Date WBC 14.20 (H) 01/26/2019 HGB 13.0 (L) 01/26/2019 HCT 39.4 (L) 01/26/2019 MCV 84.4 01/26/2019 PLT 183 01/26/2019 This SmartLink has not been configured with any valid records. This SmartLink has not been configured with any valid records. Laboratory and Additional Data Reviewed: Laboratory 01/26/19 7:51 AM Microbiology 01/26/19 7:51 AM Pathology 01/26/19 7:51 AM Cardiology 01/26/19 7:51 AM Medications 01/26/19 7:51 AM Thank you for this consultation, we will continue to follow this patient with you. Melinda Fernandez MD * Jacob Cam PA-C - 01/26/2019 7:22 AM EST ASSESSMENT: 48-year-old male status post CABG x 1 on 01/24/[address] Blake Mcneil POD #2 Complete past medical history reviewed and previously documented Hypertension COPD ISAC with noncompliance with CPAP Diabetes mellitus type 2 Chronic leukocytosis Preoperative nasal swab positive for light MSSA Postoperative acute surgical blood loss anemia Postoperative positive fluid balance with weight gain Postoperative mild hyponatremia PLAN: Remove chest tubes and Rodriguez Stop antibiotics Cathartics Increase Coreg Start Lisinopril Restart Lipitor and Effient SUBJECTIVE: Very nervous about getting chest tubes remove this morning. Still has some pain in his chest at theleft lateral lower side probably from chest tube. States he can't take a deep breath without feeling something stabbing him. Slept some last night. Did not use CPAP because he does not like the mask.His is bringing his mask from home. Walked almost a full lap. Passing gas. OBJECTIVE: Right IJ cordis, right brachial arterial line, mediastinal and pleural chest tubes, temporary cardiac pacing wires, Rodriguez catheter BP 134/77 Pulse (!) 119 Temp 98.3 F (36.8 C) (Oral) Resp 16 Ht 5' 6.14 Wt 113.3 kg (249 lb 10.7 oz) SpO2 93% BMI 40.13 kg/m I/O last 3 completed shifts: In: 2737.9 [P.O.:980; I.V.:645.6; IV Piggyback:1112.3] Out: 4019 [Urine:3443; Chest Tube:576] 01/26/19 0600 113.3 kg (249 lb 10.7 oz) 01/25/19 0400 117.3 kg (258 lb 9.6 oz) 01/24/19 0500 113.4 kg (250 lb) 01/23/19 1121 114 kg (251 lb 5.2 oz) 01/23/19 0500 114 kg (251 lb 3.4 oz) 01/22/19 0532 115.4 kg (254 lb 6.6 oz) 01/17/19 1559 116.6 kg (257 lb) 01/17/19 1221 113.4 kg (250 lb) Physical Exam Constitutional: He is oriented to person, place, and time. He is cooperative. No distress. Cardiovascular: Regular rhythm and normal heart sounds. Tachycardia present. Exam reveals no gallopand no friction rub. No murmur heard. Pulmonary/Chest: Effort normal. No respiratory distress. He has decreased breath sounds in the right lower field and the left lower field. Abdominal: Soft. Bowel sounds are normal. He exhibits no distension. There is no abdominal tenderness. Musculoskeletal: General: No edema. Neurological: He is alert and oriented to person, place, and time. Skin: Skin is warm and dry. He is wearing his heart hugger. Chest incision is currently dressed and dry. Chest tubes are currently dressed and dry He is wearing his support hose. Psychiatric: He has a normal mood and affect. His behavior is normal. Labs: Recent Labs 01/24/19 1628 01/25/19 0410 01/26/19 0432 NA 131* 132* 135 K 5.0 4.5 4.3 CL 100 100 102 BICARB 25 24 24 BUN 30* 22 21 CREATININE 1.25 1.20 1.03 GLUCOSE 122* 141* 116* Recent Labs 01/24/19 1628 01/25/19 0410 01/25/19 1332 01/26/19 0432 WBC 16.22* 15.83* -- 14.20* HGB 12.5* 12.9* 14.4 13.0* HCT 37.5* 38.5* 44.2 39.4* PLT 227 211 -- 183 Recent Labs 01/24/19 0935 01/24/19 1043 01/24/19 1628 INR 1.1 1.1 1.0 Urine culture from OR 01/24/19 shows no growth at this time Drips: dextrose 5 % and sodium chloride 0.45 % insulin regular - [facility], Protocol 1 IVP Bolus sodium chloride 0.9 % sodium chloride 0.9 % Stopped (01/24/19 1710) sodium chloride sodium chloride nitroPRUSSIDe Meds: Current Facility-Administered Medications: acetaminophen (TYLENOL) tablet 650 mg, 650 mg, Oral, Q4H PRN, 650 mg at 01/25/19 2102 OR acetaminophen (TYLENOL) suppository 650 mg, 650 mg, Rectal, Q4H PRN, Kristin Walker PA-C albumin human 5 % bottle 12.5 g, 12.5 g, Intravenous, Q15 Min PRN, Kristin Walker PA-C aspirin EC tablet 81 mg, 81 mg, Oral, Daily, Jacob Cam PA-C, 81 mg at 01/25/19936 budesonide-formoterol (SYMBICORT) 160-4.5 mcg/actuation inhaler 2 puff, 2 puff, Inhalation, BID, Meron Roper MD, 2 puff at 01/25/192036 carvedilol (COREG) tablet 6.25 mg, 6.25 mg, Oral, BID, Jacob Cam PA-C, 6.25 mg at 01/25/192052 ceFAZolin (ANCEF) IVPB 2 g (premix), 2,000 mg, Intravenous, Q8H, Kristin Walker PA-C, Last Rate: 100 mL/hr at 01/25/192345, 2,000 mg at 01/25/192345 dextrose 5 % and sodium chloride 0.45 % infusion, 50 mL/hr, Intravenous, Continuous PRN, Kristin Walker PA-C dextrose 50 % in water (D50W) syringe 25-50 mL, 25-50 mL, Intravenous, PRN, Kristin Walker PA-C docusate sodium (COLACE) capsule 100 mg, 100 mg, Oral, Daily, Jacob Cam PA-C, 100 mg at 01/25/19936 enoxaparin (LOVENOX) syringe 40 mg, 40 mg, Subcutaneous, BID, Jacob Cam PA-C, 40 mg at103/28/182052 ferrous sulfate tablet 325 mg, 325 mg, Oral, TID with meals, Jacob Cam PA-C, 325 mg at103/28/181636 hydrALAZINE (APRESOLINE) tablet 25 mg, 25 mg, Oral, Q6H PRN, Jacob Cam PA-C insulin lispro (HumaLOG) injection 0-20 Units, 0-20 Units, Subcutaneous, at bedtime, Melinda Fernandez MD, 0 Units at 01/25/192054 insulin lispro (HumaLOG) injection 0-30 Units, 0-30 Units, Subcutaneous, TID AC, Melinda Fernandez MD, 0 Units at 01/25/191729 insulin regular (HumuLIN R, NovoLIN R) injection 0-10 Units, 0-10 Units, Intravenous, Continuous PRN, Kristin Walker PA-C levalbuterol (XOPENEX) nebulizer solution 1.25 mg, 1.25 mg, Nebulization, Q4H PRN, Kristin Walker PA-C mupirocin (BACTROBAN) 2 % ointment (sub for nasal use), , Nasal, BID, Jacob Cam PA-C naloxone (NARCAN) injection 0.1 mg, 0.1 mg, Intravenous, PRN AND Notify physician, , , Until Discontinued AND naloxone (NARCAN) injection 0.4 mg, 0.4 mg, Intravenous, PRN, Jef Martines MD ondansetron (ZOFRAN) injection 4 mg, 4 mg, Intravenous, Q6H PRN, Kristin Walker PA-C oxyCODONE-acetaminophen (PERCOCET) 5-325 mg per tablet 1 tablet, 1 tablet, Oral, Q2H PRN, Kristin Walker PA-C, 1 tablet at 01/26/19 0443 pantoprazole (PROTONIX) EC tablet 40 mg, 40 mg, Oral, BID, Neo Mcneil MD, 40 mg at 01/25/192052 Saline lock IV, , , Continuous AND sodium chloride (PF) (NS) flush 5 mL, 5 mL, Intravenous, PRNAND sodium chloride (PF) (NS) flush 5 mL, 5 mL, Intravenous, Q8H JUVENCIO, 5 mL at 01/26/19 0617 AND sodium chloride 0.9% (NS), 0-150 mL/hr, Intravenous, PRN, Kristin Walker PA-C sodium chloride 0.9% (NS), 10 mL/hr, Intravenous, Continuous, Kristin Walker PA-C, Stopped at103/27/18 1710 sodium chloride 0.9% for pressurized line, 1,000 mL, Intra-Catheter, Continuous, Kristin Walker PA-C, 1,000 mL at 01/24/19 1052 sodium chloride 0.9% for pressurized line, 1,000 mL, Intra-catheter (arterial), Continuous, Domitila Walker PA-C, 1,000 mL at 01/24/19 1051 sodium nitroPRUSSIDe (NIPRIDE) 50 mg in dextrose (D5W) 5% 250 mL infusion, , Intravenous, Continuous, Jacob Cam PA-C vancomycin (VANCOCIN) 1250 mg in sodium chloride 0.9% (NS) 250 mL IVPB, 1,250 mg, Intravenous, Q12H, [facility],PharmD, Last Rate: 250 mL/hr at 01/25/192058, 1,250 mg at 01/25/192058 vancomycin per pharmacy 1 each, 1 each, Intravenous, as indicated by pharmacokinetics, Kristin Anne PA-C * Arvin Gilliam II, MD - 01/25/2019 1:51 PM EST Incidental observation of telemetry prompted obtaining ECG. No chest pain or SOB. Patient ASX ECG is unchanged from pre-op this admission and ECG from Sep 2018. Patient had prior stent which was occluded as was the LAD. SPARKS > LAD yesterday. Current ECG suggests IVCD vs Anterior elevation.In view of no sx and that LAD was occluded pre-op, I suspect that this represents chronic changes. We will discuss with Dr. Wilson and the possibility of echo to r/o acute wall motion changes, etc. We will defer to the judgement of the belly roller. Attempted to obtain an echo, but informed that no tech is available. I will defer to the system issues * Jacob Cam PA-C - 01/25/2019 8:06 AM EST ASSESSMENT: 48-year-old male status post CABG x 1 on 01/24/[address] Blake Mcneil POD #1 Complete past medical history reviewed and previously documented Hypertension COPD ISAC with noncompliance with CPAP Diabetes mellitus type 2 Chronic leukocytosis Preoperative nasal swab positive for light MSSA Postoperative acute surgical blood loss anemia Postoperative positive fluid balance with weight gain Postoperative mild hyponatremia PLAN: Remove swan Stop lidocaine Start coreg Start lovenox Start Ferrous sulfate Hydralazine as needed SUBJECTIVE: Extubated yesterday shortly after returning from OR. Doing ok this morning. Has some discomfort from the chest tubes especially when trying to take a deep breath. OBJECTIVE: Right IJ cordis with Wilsey-Isaiah catheter, right brachial arterial line, mediastinal and pleural chest tubes, temporary cardiac pacing wires, Rodriguez catheter Cardiac index 2.8, PAP 40/13, CVP 14, SVO2 71% BP 117/77 (BP Location: Right arm, Patient Position: Sitting) Pulse (!) 107 Temp 100.4 F (38 C)(Core) Resp 16 Ht 5' 6.14 Wt 117.3 kg (258 lb 9.6 oz) SpO2 94% BMI 41.56 kg/m I/O last 3 completed shifts: In: 3484.1 [P.O.:100; I.V.:2146.2; IV Piggyback:1238] Out: 3491 [Urine:2623; Blood:50; Chest Tube:818] 01/25/19 0400 117.3 kg (258 lb 9.6 oz) 01/24/19 0500 113.4 kg (250 lb) 01/23/19 1121 114 kg (251 lb 5.2 oz) 01/23/19 0500 114 kg (251 lb 3.4 oz) 01/22/19 0532 115.4 kg (254 lb 6.6 oz) 01/17/19 1559 116.6 kg (257 lb) 01/17/19 1221 113.4 kg (250 lb) Physical Exam Constitutional: He is oriented to person, place, and time. He is cooperative. No distress. Cardiovascular: Regular rhythm and normal heart sounds. Tachycardia present. Exam reveals no gallopand no friction rub. No murmur heard. Pulmonary/Chest: Effort normal. No respiratory distress. He has decreased breath sounds in the right lower field and the left lower field. Abdominal: Soft. Bowel sounds are normal. He exhibits no distension. There is no abdominal tenderness. Musculoskeletal: General: No edema. Neurological: He is alert and oriented to person, place, and time. Skin: Skin is warm and dry. He is using his heart pillow. Chest incision is currently dressed and dry. Chest tubes are currently dressed and dry He is wearing his support hose. Psychiatric: He has a normal mood and affect. His behavior is normal. Labs: Recent Labs 01/24/19 1043 01/24/19 1628 01/25/19 0410 NA 134* 131* 132* K 3.7 5.0 4.5 CL 100 100 100 BICARB 24 25 24 BUN 26* 30* 22 CREATININE 1.31* 1.25 1.20 GLUCOSE 130* 122* 141* Recent Labs 01/24/19 1043 01/24/19 1324 01/24/19 1628 01/25/19 0410 WBC 15.28* -- -- 16.22* 15.83* HGB 12.2* < > 12.9* 12.5* 12.9* HCT 36.5* < > 39.6* 37.5* 38.5* PLT 201 -- -- 227 211 < > = values in this interval not displayed. Recent Labs 01/24/19 0935 01/24/19 1043 01/24/19 1628 INR 1.1 1.1 1.0 Urine culture from OR 01/24/19 is pending Drips: dextrose 5 % and sodium chloride 0.45 % insulin regular - [facility], Protocol 1 IVP Bolus insulin infusion IV - [facility], Protocol 1 0.7 Units/hr (01/25/19 06) lidocaine cardiac 2 mg/min (01/25/19 06) phenylephrine (WILLIAM-SYNEPHRINE) infusion sodium chloride 0.9 % sodium chloride 0.9 % Stopped (01/24/19 1710) sodium chloride sodium chloride nitroPRUSSIDe 17.1 mL/hr at 01/25/19 06 Meds: Current Facility-Administered Medications: acetaminophen (OFIRMEV) injection 1,000 mg, 1,000 mg, Intravenous, Q6H PRN, Jacob Cam PA-C, Last Rate: 400 mL/hr at 01/25/19 06 acetaminophen (TYLENOL) tablet 650 mg, 650 mg, Oral, Q4H PRN OR acetaminophen (TYLENOL) suppository 650 mg, 650 mg, Rectal, Q4H PRN, Kristin Walker PA-C albumin human 5 % bottle 12.5 g, 12.5 g, Intravenous, Q15 Min PRN, Kristin Walker PA-C budesonide-formoterol (SYMBICORT) 160-4.5 mcg/actuation inhaler 2 puff, 2 puff, Inhalation, BID, Meron Roper MD, 2 puff at 01/24/19 1906 ceFAZolin (ANCEF) IVPB 2 g (premix), 2,000 mg, Intravenous, Q8H, Kristin Walker PA-C, Stoppedat 01/25/19 0025 dextrose 5 % and sodium chloride 0.45 % infusion, 50 mL/hr, Intravenous, Continuous PRN, Kristin Walker PA-C dextrose 50 % in water (D50W) syringe 25-50 mL, 25-50 mL, Intravenous, PRN, Kristin Walker PA-C insulin regular (HumuLIN R, NovoLIN R) injection 0-10 Units, 0-10 Units, Intravenous, Continuous PRN, Kristin Walker PA-C insulin regular in 0.9 % NaCl (MYXREDLIN) 100 Units/100 mL infusion, 0.1-30 Units/hr, Intravenous, Continuous, Kristin Walker PA-C, Last Rate: 0.7 mL/hr at 01/25/19602, 0.7 Units/hr at 01/25/19602 levalbuterol (XOPENEX) nebulizer solution 1.25 mg, 1.25 mg, Nebulization, Q4H PRN, Kristin Walker PA-C lidocaine 4 mg/mL in dextrose 5% infusion, 2 mg/min, Intravenous, Continuous, Kristin Walker PA-C, Last Rate: 30 mL/hr at 01/25/19 06, 2 mg/min at 01/25/19602 mupirocin (BACTROBAN) 2 % ointment (sub for nasal use), , Nasal, BID, Jacob Cam PA-C naloxone (NARCAN) injection 0.1 mg, 0.1 mg, Intravenous, PRN AND Notify physician, , , Until Discontinued AND naloxone (NARCAN) injection 0.4 mg, 0.4 mg, Intravenous, PRN, Jef Martines MD ondansetron (ZOFRAN) injection 4 mg, 4 mg, Intravenous, Q6H PRN, Kristin Walker PA-C oxyCODONE-acetaminophen (PERCOCET) 5-325 mg per tablet 1 tablet, 1 tablet, Oral, Q2H PRN, Kristin Walker PA-C, 1 tablet at 01/25/19 0237 pantoprazole (PROTONIX) EC tablet 40 mg, 40 mg, Oral, BID, Neo Mcneil MD phenylephrine (WILLIAM-SYNEPHRINE) 50 mg in sodium chloride 0.9 % (NS) 250 mL infusion, , Intravenous, Continuous, Kristin Byrnes PA-C Saline lock IV, , , Continuous AND sodium chloride (PF) (NS) flush 5 mL, 5 mL, Intravenous, PRNAND sodium chloride (PF) (NS) flush 5 mL, 5 mL, Intravenous, Q8H JUVENCIO, 5 mL at 01/25/19 0557 AND sodium chloride 0.9% (NS), 0-150 mL/hr, Intravenous, PRN, Kristin Walker PA-C sodium chloride 0.9% (NS), 10 mL/hr, Intravenous, Continuous, Kristin Walker PA-C, Stopped at103/27/18 1710 sodium chloride 0.9% for pressurized line, 1,000 mL, Intra-Catheter, Continuous, Kristin Walker PA-C, 1,000 mL at 01/24/19 1052 sodium chloride 0.9% for pressurized line, 1,000 mL, Intra-catheter (arterial), Continuous, Domitila Walker PA-C, 1,000 mL at 01/24/19 1051 sodium nitroPRUSSIDe (NIPRIDE) 50 mg in dextrose (D5W) 5% 250 mL infusion, , Intravenous, Continuous, Kristin Byrnes PA-C, Last Rate: 17.1 mL/hr at 01/25/19 0603 vancomycin (VANCOCIN) 1250 mg in sodium chloride 0.9% (NS) 250 mL IVPB, 1,250 mg, Intravenous, Q12H, [facility],PharmD, Stopped at 01/24/19 2107 vancomycin per pharmacy 1 each, 1 each, Intravenous, as indicated by pharmacokinetics, Kristin Anne PA-C * Melinda Fernandez MD - 01/25/2019 7:55 AM EST Patient ID: Patient Name: Fernando Helton Admit Date: 01/17/2019 MR #: [id number] : 1970 Current location: [facility] Physicians: Moises Patel MD (Family); Kristin BARCENAS (Referring) Reason for consult: Type 2 diabetes New diagnosis Assessment/Plan: Dx: Type 2 diabetes, under good control. Newly diagnosed during this admission. Currently diet controlled. Currently taking as outpatient: No oral hypoglycemic medications Current Hemoglobin A1C= 6.5% 01/20/19 Lab Results Component Value Date HGBA1C 6.5 (H) 01/20/2019 NOTES: 01/21: BG reviewed since admission. Patient presented to the hospital with chest pain and underwentheart cath 01/20. Stent to LAD is occluded and the patient will need CABG surgery. CT surgery has seen the patient and plan is to move forward with surgery on Sunday. Patient has not had any diabetes treatment during this hospital stay as he was just found to have an elevated A1C., of 6.5%. Patient h as never been told he has diabetes. 01/22: BG reviewed over last 24 hours. Patient is currently on SSI only. 01/23 BG reviewed. Discussed with patient that he meets the criteria for type 2 diabetes mellitus, currently is diet controlled. His has type 2 diabetes mellitus and is on insulin therapy. He will be making some dietary changes, and will stop drinking regular sodas. Scheduled for CABG tomorrow. 01/25 BG reviewed. He is currently on IV insulin POD #1. Blood Glucoses: 01/20: 134 (from Chemistry 01/20 AM) 01/21: 116---119---175---147 01/22: 125---116---107---142 01/23 124---106---110---163 01/24 169---169---131---132 01/25 129---132--127---117---119---129 Plan: 1. Rx changes: see below Adjust diet to CHO controlled Check BG QAC/HS. 01/22: CPM. 01/23 continue to monitor BG with sliding scale as needed. He will need IV insulin postoperatively.We will start glimepiride if needed; would be a good candidate for metformin in the future. 01/25 Will continue IV insulin throughout day. May consider stopping IV insulin later in day.will place sliding scale orders. 2. Education: Reviewed ABCs of diabetes management (respective goals in parentheses): A1C (7.0-8.0), blood pressure (<130/80), and cholesterol (LDL <100). Referral to Diabetes Education Referral to Nutrition therapy Subjective: Interval HPI: 01/22: No complaints. 01/23 patient has no chest pain or shortness of breath today. 01/25 Patient with surgical chest pain. Brief HPI: Mr. Helton is a 48-year-old male patient presented to the emergency department on 01/20/2019 for complaints of chest pain. His initial evaluation was negative however he was admitted the hospital for further observation/management. Patient was seen and evaluated by cardiology and subsequently underwent a cardiac catheterization on 01/20/2019. Patient was found to have an occluded LAD stent, that hadbeen previously placed about 3 to 4 years ago. He was referred to CT surgery for bypass graft surgery in the near future. CT surgery came to evaluate the patient and ordered a hemoglobin A1c. He was found to have a hemoglobin A1c of 6.5%, and is also been noted to have 2 elevated blood sugar valuesduring his hospital stay. Endocrinology was consulted to further evaluate the patient and provide further treatment recommendations. Patient reports he is never been told he has diabetes. He is also never been told he even had impaired fasting blood glucose. He reports that his maternal family has a history of type 2 diabetes, especially in his uncle. The patient reports he drinks regular pop, at least 2 cans of Pepsi every day.He has been drinking more than that until recently he cut down. He does typically avoid concentrated sweets. The patient also suffers from coronary artery disease, hypertension and hyperlipidemia. Yenifer suffers from ischemic systolic heart failure and is followed by Pallavi David clinical nurse specialist in our heart failure clinic. Patient suffers from COPD and sleep apnea and is supposed to be wearing a CPAP however he is now always compliant with. Again upon further evaluation the patient wasfound to have an elevated hemoglobin A1c of 6.5% on 01/20/2019. Complications of diabetes include: Retinopathy: Negative Nephropathy: Negative Peripheral Neuropathy: Negative Autonomic Neuropathy: Negative Allergies: Allergies Allergen Reactions Imdur [Isosorbide Mononitrate] Caused severe headache and had to stop it. Home Medications: Outpatient Medications Marked as Taking for the 01/17/19 encounter (Hospital Encounter): albuterol 90 mcg/actuation inhaler, Inhale 2 puffs every 6 (six) hours as needed for wheezing or shortness of breath . aspirin 81 MG EC tablet, Take 81 mg by mouth daily. atorvastatin (LIPITOR) 20 MG tablet, Take 1 (one) tablet (20 mg total) by mouth daily . budesonide-formoterol (Symbicort) 160-4.5 mcg/actuation inhaler, Inhale 2 puffs 2 (two) times a day. carvedilol (COREG) 25 MG tablet, Take 1 (one) tablet (25 mg total) by mouth 2 (two) times a day with meals . enalapril (VASOTEC) 5 MG tablet, Take 5 mg by mouth 2 (two) times a day . furosemide (LASIX) 40 MG tablet, Take 1 (one) tablet (40 mg total) by mouth daily . ipratropium-albuterol (DUO-NEB) 0.5-2.5 mg/3 ml nebulizer, Take 3 mL by nebulization every 6 (six) hours . omeprazole (PRILOSEC) 40 MG capsule, Take 40 mg by mouth daily potassium chloride (K-DUR) 10 MEQ CR tablet, Take 10 mEq by mouth 2 (two) times a day . prasugrel (EFFIENT) 10 mg tablet, Take 1 (one) tablet (10 mg total) by mouth daily . rOPINIRole (REQUIP) 2 MG tablet, Take 2 mg by mouth nightly. varenicline (CHANTIX) 1 mg tablet, Take 1 mg by mouth 2 (two) times a day . Current Medications: budesonide-formoterol 2 puff Inhalation BID ceFAZolin (ANCEF) IVPB 2,000 mg Intravenous Q8H mupirocin Nasal BID pantoprazole 40 mg Oral BID sodium chloride (PF) 5 mL Intravenous Q8H JUVENCIO vancomycin 1,250 mg Intravenous Q12H vancomycin per pharmacy 1 each Intravenous as indicated by pharmacokinetics acetaminophen, acetaminophen OR acetaminophen, albumin human, dextrose 5 % and sodium chloride 0.45 %, dextrose 50 % in water (D50W), insulin regular - [facility], Protocol 1 IVP Bolus, levalbuterol, nalOXone AND Notify physician AND naloxone, ondansetron, oxyCODONE-acetaminophen, Saline lock IV AND sodium chloride (PF) AND sodium chloride (PF) AND sodium chloride 0.9 % Review of Systems: Review of Systems Constitutional: Negative for appetite change, fatigue and unexpected weight change. HENT: Negative. Eyes: Negative. Respiratory: Negative for chest tightness and shortness of breath. Cardiovascular: Negative for chest pain and leg swelling. Gastrointestinal: Negative for abdominal pain, constipation, diarrhea, nausea and vomiting. Endocrine: Negative for cold intolerance, heat intolerance, polydipsia, polyphagia and polyuria. Genitourinary: Negative for frequency. Musculoskeletal: Negative for arthralgias and myalgias. Skin: Negative. Negative for rash. Neurological: Negative for dizziness, tremors, weakness and headaches. Psychiatric/Behavioral: Negative. Negative for sleep disturbance. 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 Bev Tolentino Metabolic syndrome Mood disorder ([facility]) Nasal fracture Obstructive sleep apnea noncompliant with CPAP Orthostatic dizziness with intermittent syncope Pericarditis 02/25/07; 09/23/17 Pneumomediastinum ([facility]) 01/12/2007 secondary to severe coughing spell & ruptured alveoli Rotator cuff tear, right 1997 s/p repair SLAP tear of shoulder 2011 left - s/p surgery to place [address] elevation myocardial infarction (STEMI) of anterolateral wall ([facility]) 05/09/2012 anterolateral STEMI involving left anterior descending coronary artery ([facility]) 09/25/2014 anterior Superficial thrombophlebitis of right upper extremity 12/26/2006 Past Surgical History: Procedure Laterality Date APPENDECTOMY 1998 BONE MARROW BIOPSY W/ ASPIRATION Left 11/27/2016 L posterior iliac crest; Dr. Bev Tolentino CARDIAC CATHETERIZATION 09/24/2014 Segment LV dysf., mild to moderate LV systolic impairment, moderate LV diastolic dysf.; single vessel CAD by Dr. Whitney CARDIAC CATHETERIZATION 05/09/2012 Emergent. Severe LVSD EF 20%; single vessel CAD with acute thrombotic occlusion of left anterior descending by Dr. Rowland CARDIAC CATHETERIZATION Left 09/28/2015 Dr. 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 Normal LV end-diastolic pressure. CARDIAC CATHETERIZATION 01/14/[address] Phillips CARDIAC CATHETERIZATION 11/24/[address] Rowland [facility] 05/27/2015 CORONARY ANGIOPLASTY 12/25/2014 PCI with balloon angioplasty by Dr. Whitney of jailed diagonal CORONARY STENT PLACEMENT 05/09/2012 Drug eluted Alpine stent in the left anterior descending by Dr. Rowland CORONARY STENT PLACEMENT 09/24/2014 Subacute stent thrombosis by Dr. Whitney. This may be in the setting of areas of restenosis within the LAD stent ETHMOIDECTOMY Bilateral 06/25/[address] Gaitan LEFT HEART CATH N/A 01/20/2019 Procedure: Left Heart Cath; Surgeon: Carlo Mercedes MD; Location: [facility]; Service: Cardiovascular IABP placement 05/09/[address] Rowland NASAL SEPTUM SURGERY 06/25/[address] Gaitan ROTATOR CUFF REPAIR Right 1997 SHOULDER ARTHROSCOPY W/ SUPERIOR LABRAL ANTERIOR POSTERIOR REPAIR Left 11/2012 @ [facility] SHOULDER ARTHROSCOPY W/ SUPERIOR LABRAL ANTERIOR POSTERIOR REPAIR Left 11/22/2011 shoulder arthroscopic anterior capsulorraphy, SLAP repair, acromioplasty, limited debridement of labrum and rotator cuff by Dr. Sexton SINUSOTOMY Bilateral 06/25/2007 with removal of tissue by Dr. Gaitan UPPER GASTROINTESTINAL ENDOSCOPY 2016 Family History Problem Relation Age of Onset Heart attack Father Heart disease Father s/p cabg x 4 in his 40s Coronary artery disease Father Hypertension Father Hyperlipidemia Father Heart disease Mother Stroke Mother 64 Hyperlipidemia Mother Coronary artery disease Other Cancer Paternal Uncle unknown cancer Hypertension Sister Diabetes Brother Heart disease Brother s/p PCI Melanoma Brother Social History Tobacco Use Smoking status: Former Smoker Packs/day: 1.00 Years: 35.00 Pack years: 35.00 Last attempt to quit: 05/12/2016 Years since quittin.7 Smokeless tobacco: Never Used Tobacco comment: Quit Substance Use Topics Alcohol use: Yes Alcohol/week: 0.0 standard drinks Comment: socially Drug use: Not Currently Types: Marijuana The following portions of the patient's history were reviewed and updated as appropriate: allergies, current medications, past family history, past medical history, past social history, past surgicalhistory and problem list. Objective: BP 117/77 (BP Location: Right arm, Patient Position: Sitting) Pulse (!) 107 Temp 100.4 F (38 C)(Core) Resp 16 Ht 5' 6.14 Wt 117.3 kg (258 lb 9.6 oz) SpO2 94% BMI 41.56 kg/m Wt Readings from Last 3 Encounters: 01/25/19 117.3 kg (258 lb 9.6 oz) 01/04/19 113.4 kg (250 lb) 12/26/18 113.9 kg (251 lb) Physical Exam: Physical Exam Constitutional: He is oriented to person, place, and time. He appears well- developed and well-nourished. No distress. HENT: Head: Normocephalic and atraumatic. Mouth/Throat: Oropharynx is clear and moist. Eyes: Pupils are equal, round, and reactive to light. Conjunctivae and EOM are normal. Neck: Normal range of motion. Neck supple. No thyromegaly present. Cardiovascular: Normal rate, regular rhythm, normal heart sounds and intact distal pulses. Exam reveals no gallop and no friction rub. No murmur heard. Pulses: Dorsalis pedis pulses are 2+ on the right side and 2+ on the left side. Pulmonary/Chest: Effort normal and breath sounds normal. No respiratory distress. He has no wheezes. He has no rales. Chest tubes in place Abdominal: Soft. Bowel sounds are normal. He exhibits no distension. There is no abdominal tenderness. Musculoskeletal: Normal range of motion. General: No deformity or edema. Right foot: Normal. Normal range of motion. No swelling or deformity. Left foot: Normal. Normal range of motion. No swelling or deformity. Neurological: He is alert and oriented to person, place, and time. Skin: Skin is warm and dry. No rash noted. No erythema. Psychiatric: He has a normal mood and affect. His behavior is normal. Judgment and thought content normal. Laboratory Review: BP 117/77 (BP Location: Right arm, Patient Position: Sitting) Pulse (!) 107 Temp 100.4 F (38 C)(Core) Resp 16 Ht 5' 6.14 Wt 117.3 kg (258 lb 9.6 oz) SpO2 94% BMI 41.56 kg/m Lab Results Component Value Date HGBA1C 6.5 (H) 01/20/2019 Glucose (mg/dL) Date Value 01/25/2019 141 (H) Creatinine (mg/dL) Date Value 01/25/2019 1.20 09/27/2018 1.0 01/09/2018 1.14 Lab Results Component Value Date CHOL 183 09/24/2014 TRIG 201 (A) 09/24/2014 HDL 34 (A) 09/24/2014 LDL 109 09/24/2014 Lab Results Component Value Date TSH 1.15 01/20/2019 T4, Free Date Value Ref Range Status 01/20/2019 1.0 0.7 - 1.7 ng/dL Final Lab Results Component Value Date WBC 15.83 (H) 01/25/2019 HGB 12.9 (L) 01/25/2019 HCT 38.5 (L) 01/25/2019 MCV 83.5 01/25/2019 PLT 211 01/25/2019 This SmartLink has not been configured with any valid records. This SmartLink has not been configured with any valid records. Laboratory and Additional Data Reviewed: Laboratory 01/25/19 7:55 AM Microbiology 01/25/19 7:55 AM Pathology 01/25/19 7:55 AM Cardiology 01/25/19 7:55 AM Medications 01/25/19 7:55 AM Thank you for this consultation, we will continue to follow this patient with you. 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 He is s/p CABG x1 on 01/24. He isfrom home with his spouse. Discharge need is uncertain at this time. Will continue to follow. * Kristin Walker PA-C - 01/24/2019 6:51 AM EST 01/24/19 Fernando Helton SUBJECTIVE: Patient resting supine in bed, head of bed elevated at 45 degrees. N.p.o. since 10:00 PM on 01/23/2019. Last bowel movement: 01/23/2019. Patient denies questions regarding CABG planned for this morning. States I am ready . Family at bedside. OBJECTIVE: VITAL SIGNS: BP 117/77 (BP Location: Right arm, Patient Position: Sitting) Pulse 86 Temp 98.9 F(37.2 C) (Oral) Resp 17 Ht 5' 6.14 Wt 113.4 kg (250 lb) SpO2 98% BMI 40.18 kg/m Labs: Recent Labs 01/22/19 0501/23/19 0338 01/24/19 0342 NA 135 133* 134* K 3.9 4.0 3.6 CL 102 99 98 BICARB 25 27 27 BUN 26* 25 26* CREATININE 1.23 1.22 1.19 GLUCOSE 125* 124* 148* Recent Labs 01/22/19 0527 01/23/19 0338 01/24/19 0342 WBC 11.38* 12.17* 10.92 HGB 13.5 14.3 14.0 HCT 41.8 42.4 42.3 PLT 237 239 230 No results for input(s): INR in the last 72 hours. 01/20/2019 carotid ultrasound duplex: No evidence of stenosis in bilateral internal carotid artery, patent vertebral arteries bilaterally no evidence of subclavian stenosis bilaterally 01/20/2019 upper respiratory aerobic culture: Positive light Staphylococcus aureus, MSSA 01/20/2019 hemoglobin A1c: 6.5 01/21/2019 urine aerobic culture: +10,000-49,000 Staphylococcus aureus 01/21/2019 PFT: FEV1 79% pre-bronchodilator, 81% postbronchodilator 01/21/2019 transthoracic echocardiography: Mildly dilated left ventricle with basal septal wall hypertrophy measuring 1.5 cm in maximal thickness. Mild segmental left ventricular systolic dysfunctionwith estimated LVEF 45-50%. Wall motion abnormalities as outlined below. Impaired LV relaxation. Dilated right ventricle with grossly normal systolic function. No hemodynamically significant valvulardisease. Mildly dilated aortic root measuring 4 cm. Current Medications: APR Hold] aspirin EC tablet 81 mg 81 mg, Oral, Daily Given, 81 mg at 01/23 0949 [APR Hold] atorvastatin (LIPITOR) tablet 20 mg 20 mg, Oral, at bedtime Given, 20 mg at 01/23 2057 [APR Hold] budesonide-formoterol (SYMBICORT) 160-4.5 mcg/actuation inhaler 2 puff 2 puff, Inhl, BIDGiven, 2 puff at 01/23 1900 [Apr] carvedilol (COREG) tablet 25 mg 25 mg, Oral, BID with meals Given, 25 mg at 01/23 1854 [APR Hold] furosemide (LASIX) injection 20 mg 20 mg, IV, Q8H JUVENCIO Given, 20 mg at 01/24 2224 [APR Hold] ipratropium-albuterol (DUO-NEB) 0.5-2.5 mg/3 ml nebulizer solution 3 mL 3 mL, nebu, Q6H JUVENCIO Given, 3 mL at 01/23 1900 [Apr] lisinopril (PRINIVIL,ZESTRIL) tablet 10 mg 10 mg, Oral, Daily with lunch Given, 10 mg at103/26 1257 [APR Hold] mupirocin (BACTROBAN) 2 % ointment (sub for nasal use) No Dose/Rate, Nasl, BID Given, NoDose/Rate at 01/23 2059 [APR Hold] nitroGLYCERIN (NITRO-BID) 2 % ointment 1 inch 1 inch, TP, Q6H Given, 1 inch at 01/17 2118 [APR Hold] pantoprazole (PROTONIX) EC tablet 40 mg 40 mg, Oral, BID Given, 40 mg at 01/23 2057 [APR Hold] potassium chloride SA (K-DUR,KLOR-CON) CR tablet 10 mEq 10 mEq, Oral, Daily Given, 10 mEq at 01/23 0845 [APR Hold] rOPINIRole (REQUIP) tablet 2 mg 2 mg, Oral, Nightly Given, 2 mg at 01/23 1854 [APR Hold] sodium chloride (PF) (NS) flush 5 mL 5 mL, IV, Q8H JUVENCIO Given, 5 mL at 01/23 2200 [APR Hold] varenicline (CHANTIX) tablet 1 mg 1 mg, Oral, BID Given, 1 mg at 01/23 2057 Drips: [APR Hold] heparin infusion (weight based dosing) 19 Units/kg/hr (01/24/19 0456) [APR Hold] heparin [APR Hold] sodium chloride 0.9 % Physical Exam Constitutional: He is oriented to person, place, and time. He appears well- developed and well-nourished. No distress. Denies fever, chills, dyspnea, orthopnea, paroxysmal nocturnal dyspnea, chest pain, syncope nor near syncope. Patient states chest discomfort is normal HENT: Head: Normocephalic and atraumatic. Mouth/Throat: No oropharyngeal exudate. Eyes: Pupils are equal, round, and reactive to light. EOM are normal. No scleral icterus. Neck: Normal range of motion. Neck supple. No thyromegaly present. Cardiovascular: Normal rate, regular rhythm and intact distal pulses. Exam reveals no gallop and nofriction rub. No murmur heard. Pulmonary/Chest: Effort normal and breath sounds normal. No respiratory distress. He has no wheezes. He has no rales. Abdominal: Soft. Bowel sounds are normal. He exhibits no distension. There is no abdominal tenderness. There is no rebound and no guarding. Last bowel movement: 01/23/2019 Genitourinary: Genitourinary Comments: Voiding without difficulty Musculoskeletal: Normal range of motion. General: Edema present. Comments: Chronic bilateral lower extremity edema, right greater than left Neurological: He is alert and oriented to person, place, and time. Skin: Skin is warm and dry. He is not diaphoretic. Ecchymosis to left groin cardiac catheterization site Psychiatric: He has a normal mood and affect. His behavior is normal. Judgment and thought content normal. ASSESSMENT: Mr. Fernando Helton is a pleasant 48-year-old male with a known past medical history of coronary artery disease, myocardial infarction status post multiple PCI to LAD on Eliquis antiplatelet therapy, former tobacco abuse, hypertension, hyperlipidemia, COPD, ISAC and morbid obesity who presented to [facility] on 01/17/2019 with complaints of increasing chest pain which he is been experiencing over the course of the last 3 to 5 months. EKG revealed nonspecific changes and serum troponin within normal limits. Given risk factors he is taken to the cardiac catheterization lab by Dr. Carlo Mercedes and is found with single-vessel coronary artery disease with in-stent occlusion of the LAD and mid segment. He has a preserved ejection fraction of 45%. In light of the cardiac catheterization findings and patient presentation, Dr. Blake Mcneil was asked to evaluate Mr. Fernando Helton for possible surgical revascularization of the heart. 1. Known coronary artery disease, status post multiple PCI stenting to LAD 2. Essential hypertension 3. Hyperlipidemia 4. Chronic obstructive pulmonary disease 5. Obstructive sleep apnea, noncompliant with CPAP 6. Morbid obesity per Medicare criteria with body mass index greater than 40 7. Former tobacco abuse, managed with Chantix 8. Anxiety disorder 9. Gastroesophageal reflux disease 10. Cluster headaches 11. Mood disorder 12. Metabolic syndrome 13. Chronic sinusitis 14. History of deviated septum 15. Internal hemorrhoids 16. Chronic bilateral lower extremity edema, right greater than left 17. Remote history of nasal fracture 18. Anterior lateral STEMI on 05/09/2012 19. Anterior STEMI secondary to subacute LAD stent thrombosis on 09/24/2014, managed with Effient, last dose 01/20/2019 20. Cardiac arrest with ventricular fibrillation with [place] on 09/24/2014 21. Acute respiratory failure requiring vent mechanical ventilation on 09/24/2014 22. Chronic diastolic congestive heart failure 23. Pneumomediastinum on 01/12/2007 CT, secondary to severe coughing and ruptured alveoli 24. Pericarditis on 02/25/2007 and 09/23/2017 25. Right lower extremity claudication 26. Right cavernous hepatic lobe hemangioma 27. Superficial thrombophlebitis of right forearm, 12/26/2006 28. Chronic orthostatic dizziness with witnessed syncopal episode every month 29. Left groin lesion, intermittently draining malodorous white purulent pus 30. Chronic leukocytosis, evaluated by Dr. Trini Lofton 11/2016 31. Unstable angina this admission 32. Right external iliac artery stenosis, this admission 33. Newly diagnosed diabetes mellitus type 2 this admission PLAN: Single-vessel coronary artery bypass grafting without the use of cardiopulmonary bypass by Dr. Blake Mcneil on 01/24/2019 Dr. Mcneil spoke with patient and family to discuss procedure, alternatives and risks including , myocardial infarction, stroke, cognitive deficit, renal failure, infection, bleeding and othermajor morbidity. They verbalized understanding of same and wished to proceed as planned. Consent signed and placed on to chart N.p.o. after midnight CPT: 67126 * Delmi Donis MD - 01/23/2019 3:26 PM EST [facility] Medicine Inpatient Follow-up 01/23/2019 Delmi Donis MD [facility] Patient: Fernando Helton Date of : 1970 (48 y.o.) PCP: Moises Patel MD ASSESSMENT/PLAN: Fernando Helton 48 y.o. male presented with complains of Active Problems: Chest pain ACS (acute coronary syndrome) ([facility]) PAD (peripheral artery disease) ([facility]) PLAN: Coronary artery disease - pateint denies any chest pain. patient is status post left heart cath on 01/20 he was found to have an in-stent occlusion of the mid LAD. Cardiovascular surgery has been consulted patient scheduled for CABG on 01/24/2019, Dr. Mcneil following PAD; patient seen by vascular surgery today PA: ABIs have been done. Recommendation follow-up in the clinic as an outpatient. Continue smoking cessation, high intensity statin Plavix and aspirin. Diabetes mellitus; Dr. Fernandez consulted hemoglobin A1c is 6.5, continue diabetic cardiac diet. No diabetic medication started at this time. Will monitor glucose AC and at bedtime SUBJECTIVE: No acute issues overnight All other systems reviewed and negative other than noted above. OBJECTIVE: Physical Examination: BP 116/71 (BP Location: Right arm, Patient Position: Lying) Pulse 79 Temp 98 F (36.7 C) (Oral) Resp 16 Ht 5' 7 Wt 114 kg (251 lb 5.2 oz) SpO2 94% BMI 39.36 kg/m General Appearance: Alert, well appearing, and in no acute distress. HEENT: Head - Normocephalic, atraumatic. Eyes - ROSELINE bilaterally and EOMI. Ears - normal external appearance, hearing intact. Nose - normal, no erythema. Throat - mucous membranes moist, pharynx without lesions. Neck: Supple, trachea midline. Cardiovascular: S1, S2 normal. No murmurs, rubs, clicks or gallops appreciated. No pedal edema. Nonpalpable DP pulse right and absent Doppler signal. Left DP and bilateral PT withtriphasic Doppler signal. Respiratory: Lungs clear to auscultation, no wheezes, rales or rhonchi heard. Abdomen: Soft, non-tender, normal bowel sounds, non-distended, no masses or organomegaly appreciated. Neurological: Grossly normal motor and sensory exam. No focal deficits. Musculoskeletal: No joint tenderness, deformity or swelling. Skin: Normal coloration and turgor. No rashes. Psych: Alert, oriented x 3. Normal mood and affect. CURRENT MEDICATIONS: aspirin 81 mg Oral Daily atorvastatin 20 mg Oral at bedtime budesonide-formoterol 2 puff Inhalation BID carvedilol 25 mg Oral BID with meals furosemide 20 mg Intravenous Q8H JUVENCIO ipratropium-albuterol 3 mL Nebulization Q6H JUVENCIO lisinopril 10 mg Oral Daily with lunch mupirocin Nasal BID nitroGLYCERIN 1 inch Topical Q6H pantoprazole 40 mg Oral BID potassium chloride SA 10 mEq Oral Daily rOPINIRole 2 mg Oral Nightly sodium chloride (PF) 5 mL Intravenous Q8H JUVENCIO varenicline 1 mg Oral BID Results/Medications Reviewed 01/23/19 3:46 PM: Results from last 7 days Lab Units 01/23/19 0338 01/22/19 0527 01/21/19 0607 SODIUM mmol/L 133* 135 135 POTASSIUM mmol/L 4.0 3.9 4.0 CHLORIDE mmol/L 99 102 102 BUN mg/dL 25 26* 22 CREATININE mg/dL 1.22 1.23 1.11 GLUCOSE mg/dL 124* 125* 116* CALCIUM mg/dL 9.3 8.9 9.1 Results from last 7 days Lab Units 01/23/19 0338 01/22/19 0527 01/21/19 0607 WBC K/mcL 12.17* 11.38* 11.28* HGB g/dL 14.3 13.5 14.2 HCT % 42.4 41.8 43.6 PLT K/mcL 239 237 267 Results from last 7 days Lab Units 01/17/19 1753 01/17/19 1450 01/17/19 1208 TROPONIN I ng/L <15 <15 <15 Results from last 7 days Lab Units 01/23/19 0338 01/22/19 2035 01/22/19 1223 01/20/19 1000 01/17/19 1208 INR -- -- -- -- 1.0 -- 1.0 PTT seconds 79* 70* 58* < > -- < > -- < > = values in this interval not displayed. Results from last 7 days Lab Units 01/20/19 1000 ALK PHOS U/L 68 BILIRUBIN TOTAL mg/dL 0.7 BILIRUBIN DIRECT mg/dL 0.1 TOTAL PROTEIN g/dL 6.3 ALTR U/L 79* AST U/L 42 CULTURES: Reviewed 3:46 PM IMAGING: Reviewed 3:46 PM * Melinda Fernandez MD - 01/23/2019 9:02 AM EST Patient ID: Patient Name: Fernando Helton Admit Date: 01/17/2019 MR #: [id number] : 1970 Current location: [facility] Physicians: Moises Patel MD (Family); Kristin BARCENAS (Referring) Reason for consult: Type 2 diabetes New diagnosis Assessment/Plan: Dx: Type 2 diabetes, under good control. Newly diagnosed during this admission. Currently diet controlled. Currently taking as outpatient: No oral hypoglycemic medications Current Hemoglobin A1C= 6.5% 01/20/19 Lab Results Component Value Date HGBA1C 6.5 (H) 01/20/2019 NOTES: 01/21: BG reviewed since admission. Patient presented to the hospital with chest pain and underwentheart cath 01/20. Stent to LAD is occluded and the patient will need CABG surgery. CT surgery has seen the patient and plan is to move forward with surgery on Sunday. Patient has not had any diabetes treatment during this hospital stay as he was just found to have an elevated A1C., of 6.5%. Patient h as never been told he has diabetes. 01/22: BG reviewed over last 24 hours. Patient is currently on SSI only. 01/23 BG reviewed. Discussed with patient that he meets the criteria for type 2 diabetes mellitus, currently is diet controlled. His has type 2 diabetes mellitus and is on insulin therapy. He will be making some dietary changes, and will stop drinking regular sodas. Scheduled for CABG tomorrow. Blood Glucoses: 01/20: 134 (from Chemistry 01/20 AM) 01/21: 116---119---175---147 01/22: 125---116---107---142 01/23 124---106 Plan: 1. Rx changes: see below Adjust diet to CHO controlled Check BG QAC/HS. 01/22: CPM. 01/23 continue to monitor BG with sliding scale as needed. He will need IV insulin postoperatively.We will start glimepiride if needed; would be a good candidate for metformin in the future. 2. Education: Reviewed ABCs of diabetes management (respective goals in parentheses): A1C (7.0-8.0), blood pressure (<130/80), and cholesterol (LDL <100). Referral to Diabetes Education Referral to Nutrition therapy Subjective: Interval HPI: 01/22: No complaints. 01/23 patient has no chest pain or shortness of breath today. Brief HPI: Mr. Helton is a 48-year-old male patient presented to the emergency department on 01/20/2019 for complaints of chest pain. His initial evaluation was negative however he was admitted the hospital for further observation/management. Patient was seen and evaluated by cardiology and subsequently underwent a cardiac catheterization on 01/20/2019. Patient was found to have an occluded LAD stent, that hadbeen previously placed about 3 to 4 years ago. He was referred to CT surgery for bypass graft surgery in the near future. CT surgery came to evaluate the patient and ordered a hemoglobin A1c. He was found to have a hemoglobin A1c of 6.5%, and is also been noted to have 2 elevated blood sugar valuesduring his hospital stay. Endocrinology was consulted to further evaluate the patient and provide further treatment recommendations. Patient reports he is never been told he has diabetes. He is also never been told he even had impaired fasting blood glucose. He reports that his maternal family has a history of type 2 diabetes, especially in his uncle. The patient reports he drinks regular pop, at least 2 cans of Pepsi every day.He has been drinking more than that until recently he cut down. He does typically avoid concentrated sweets. The patient also suffers from coronary artery disease, hypertension and hyperlipidemia. Yenifer suffers from ischemic systolic heart failure and is followed by Pallavi David clinical nurse specialist in our heart failure clinic. Patient suffers from COPD and sleep apnea and is supposed to be wearing a CPAP however he is now always compliant with. Again upon further evaluation the patient wasfound to have an elevated hemoglobin A1c of 6.5% on 01/20/2019. Complications of diabetes include: Retinopathy: Negative Nephropathy: Negative Peripheral Neuropathy: Negative Autonomic Neuropathy: Negative Allergies: Allergies Allergen Reactions Imdur [Isosorbide Mononitrate] Caused severe headache and had to stop it. Home Medications: Outpatient Medications Marked as Taking for the 01/17/19 encounter (Hospital Encounter): albuterol 90 mcg/actuation inhaler, Inhale 2 puffs every 6 (six) hours as needed for wheezing or shortness of breath . aspirin 81 MG EC tablet, Take 81 mg by mouth daily. atorvastatin (LIPITOR) 20 MG tablet, Take 1 (one) tablet (20 mg total) by mouth daily . budesonide-formoterol (Symbicort) 160-4.5 mcg/actuation inhaler, Inhale 2 puffs 2 (two) times a day. carvedilol (COREG) 25 MG tablet, Take 1 (one) tablet (25 mg total) by mouth 2 (two) times a day with meals . enalapril (VASOTEC) 5 MG tablet, Take 5 mg by mouth 2 (two) times a day . furosemide (LASIX) 40 MG tablet, Take 1 (one) tablet (40 mg total) by mouth daily . ipratropium-albuterol (DUO-NEB) 0.5-2.5 mg/3 ml nebulizer, Take 3 mL by nebulization every 6 (six) hours . omeprazole (PRILOSEC) 40 MG capsule, Take 40 mg by mouth daily potassium chloride (K-DUR) 10 MEQ CR tablet, Take 10 mEq by mouth 2 (two) times a day . prasugrel (EFFIENT) 10 mg tablet, Take 1 (one) tablet (10 mg total) by mouth daily . rOPINIRole (REQUIP) 2 MG tablet, Take 2 mg by mouth nightly. varenicline (CHANTIX) 1 mg tablet, Take 1 mg by mouth 2 (two) times a day . Current Medications: aspirin 81 mg Oral Daily atorvastatin 20 mg Oral at bedtime budesonide-formoterol 2 puff Inhalation BID carvedilol 25 mg Oral BID with meals furosemide 20 mg Intravenous Q8H JUVENCIO ipratropium-albuterol 3 mL Nebulization Q6H JUVENCIO lisinopril 10 mg Oral Daily with lunch mupirocin Nasal BID nitroGLYCERIN 1 inch Topical Q6H pantoprazole 40 mg Oral BID potassium chloride SA 10 mEq Oral Daily rOPINIRole 2 mg Oral Nightly sodium chloride (PF) 5 mL Intravenous Q8H JUVENCIO varenicline 1 mg Oral BID acetaminophen, albuterol, aluminum-magnesium hydroxide-simethicone, atropine, calcium carbonate, heparin, hydrOXYzine, LORazepam, ondansetron, Saline lock IV AND sodium chloride (PF) AND sodium chloride (PF) AND sodium chloride 0.9 %, sodium chloride 0.9%, zolpidem Review of Systems: Review of Systems Constitutional: Negative for appetite change, fatigue and unexpected weight change. HENT: Negative. Eyes: Negative. Respiratory: Negative for chest tightness and shortness of breath. Cardiovascular: Negative for chest pain and leg swelling. Gastrointestinal: Negative for abdominal pain, constipation, diarrhea, nausea and vomiting. Endocrine: Negative for cold intolerance, heat intolerance, polydipsia, polyphagia and polyuria. Genitourinary: Negative for frequency. Musculoskeletal: Negative for arthralgias and myalgias. Skin: Negative. Negative for rash. Neurological: Negative for dizziness, tremors, weakness and headaches. Psychiatric/Behavioral: Negative. Negative for sleep disturbance. History: Past Medical History: Diagnosis Date Acute respiratory failure (HCC) 09/2014 requring mechanical ventilation Anxiety Bilateral lower extremity edema R > L CAD (coronary artery disease) CAD s/p LHC with 1 stent in left main 07/2012, replaced 09/2014 Cardiac arrest with ventricular fibrillation ([facility]) 09/25/2014 CHF (congestive heart failure), NYHA class I, chronic, diastolic ([facility]) Chronic sinusitis Claudication of right lower extremity ([facility]) Cluster headache COPD (chronic obstructive pulmonary disease) ([facility]) 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 Bev Tolentino Metabolic syndrome Mood disorder ([facility]) Nasal fracture Obstructive sleep apnea noncompliant with CPAP Orthostatic dizziness with intermittent syncope Pericarditis 02/25/07; 09/23/17 Pneumomediastinum ([facility]) 01/12/2007 secondary to severe coughing spell & ruptured alveoli Rotator cuff tear, right 1997 s/p repair SLAP tear of shoulder 2011 left - s/p surgery to place [address] elevation myocardial infarction (STEMI) of anterolateral wall ([facility]) 05/09/2012 anterolateral STEMI involving left anterior descending coronary artery ([facility]) 09/25/2014 anterior Superficial thrombophlebitis of right upper extremity 12/26/2006 Past Surgical History: Procedure Laterality Date APPENDECTOMY 1998 BONE MARROW BIOPSY W/ ASPIRATION Left 11/27/2016 L posterior iliac crest; Dr. Bev Tolentino CARDIAC CATHETERIZATION 09/24/2014 Segment LV dysf., mild to moderate LV systolic impairment, moderate LV diastolic dysf.; single vessel CAD by Dr. Whitney CARDIAC CATHETERIZATION 05/09/2012 Emergent. Severe LVSD EF 20%; single vessel CAD with acute thrombotic occlusion of left anterior descending by Dr. Rowland CARDIAC CATHETERIZATION Left 09/28/2015 Dr. 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 Normal LV end-diastolic pressure. CARDIAC CATHETERIZATION 01/14/[address] Phillips CARDIAC CATHETERIZATION 11/24/[address] Rowland COLONOSCOPY 05/27/2015 CORONARY ANGIOPLASTY 12/25/2014 PCI with balloon angioplasty by Dr. Whitney of jailed diagonal CORONARY STENT PLACEMENT 05/09/2012 Drug eluted Alpine stent in the left anterior descending by Dr. Rowland CORONARY STENT PLACEMENT 09/24/2014 Subacute stent thrombosis by Dr. Whitney. This may be in the setting of areas of restenosis within the LAD stent ETHMOIDECTOMY Bilateral 06/25/[address] Gaitan [facility] LEFT HEART CATH N/A 01/20/2019 Procedure: Left Heart Cath; Surgeon: Carlo Mercedes MD; Location: [facility]; Service: Cardiovascular IABP placement 05/09/[address] Rowland NASAL SEPTUM SURGERY 06/25/[address] Gaitan ROTATOR CUFF REPAIR Right 1997 SHOULDER ARTHROSCOPY W/ SUPERIOR LABRAL ANTERIOR POSTERIOR REPAIR Left 11/2012 @ [facility] SHOULDER ARTHROSCOPY W/ SUPERIOR LABRAL ANTERIOR POSTERIOR REPAIR Left 11/22/2011 shoulder arthroscopic anterior capsulorraphy, SLAP repair, acromioplasty, limited debridement of labrum and rotator cuff by Dr. Sexton SINUSOTOMY Bilateral 06/25/2007 with removal of tissue by Dr. Gaitan UPPER GASTROINTESTINAL ENDOSCOPY 2016 Family History Problem Relation Age of Onset Heart attack Father Heart disease Father s/p cabg x 4 in his 40s Coronary artery disease Father Hypertension Father Hyperlipidemia Father Heart disease Mother Stroke Mother 64 Hyperlipidemia Mother Coronary artery disease Other Cancer Paternal Uncle unknown cancer Hypertension Sister Diabetes Brother Heart disease Brother s/p PCI Melanoma Brother Social History Tobacco Use Smoking status: Former Smoker Packs/day: 1.00 Years: 35.00 Pack years: 35.00 Last attempt to quit: 05/12/2016 Years since quittin.7 Smokeless tobacco: Never Used Tobacco comment: Quit Substance Use Topics Alcohol use: Yes Alcohol/week: 0.0 standard drinks Comment: socially Drug use: Not Currently Types: Marijuana The following portions of the patient's history were reviewed and updated as appropriate: allergies, current medications, past family history, past medical history, past social history, past surgicalhistory and problem list. Objective: BP 131/85 (BP Location: Right arm, Patient Position: Sitting) Pulse 83 Temp 97.8 F (36.6 C) (Oral) Resp 16 Ht 5' 7 Wt 114 kg (251 lb 3.4 oz) SpO2 95% BMI 39.35 kg/m Wt Readings from Last 3 Encounters: 01/23/19 114 kg (251 lb 3.4 oz) 01/04/19 113.4 kg (250 lb) 12/26/18 113.9 kg (251 lb) Physical Exam: Physical Exam Constitutional: He is oriented to person, place, and time. He appears well- developed and well-nourished. No distress. HENT: Head: Normocephalic and atraumatic. Mouth/Throat: Oropharynx is clear and moist. Eyes: Pupils are equal, round, and reactive to light. Conjunctivae and EOM are normal. Neck: Normal range of motion. Neck supple. No thyromegaly present. Cardiovascular: Normal rate, regular rhythm, normal heart sounds and intact distal pulses. Exam reveals no gallop and no friction rub. No murmur heard. Pulses: Dorsalis pedis pulses are 2+ on the right side and 2+ on the left side. Pulmonary/Chest: Effort normal and breath sounds normal. No respiratory distress. He has no wheezes. He has no rales. Abdominal: Soft. Bowel sounds are normal. He exhibits no distension. There is no abdominal tenderness. Musculoskeletal: Normal range of motion. General: No deformity or edema. Right foot: Normal. Normal range of motion. No swelling or deformity. Left foot: Normal. Normal range of motion. No swelling or deformity. Neurological: He is alert and oriented to person, place, and time. Skin: Skin is warm and dry. No rash noted. No erythema. Psychiatric: He has a normal mood and affect. His behavior is normal. Judgment and thought content normal. Laboratory Review: BP 131/85 (BP Location: Right arm, Patient Position: Sitting) Pulse 83 Temp 97.8 F (36.6 C) (Oral) Resp 16 Ht 5' 7 Wt 114 kg (251 lb 3.4 oz) SpO2 95% BMI 39.35 kg/m Lab Results Component Value Date HGBA1C 6.5 (H) 01/20/2019 Glucose (mg/dL) Date Value 01/23/2019 124 (H) Creatinine (mg/dL) Date Value 01/23/2019 1.22 09/27/2018 1.0 01/09/2018 1.14 Lab Results Component Value Date CHOL 183 09/24/2014 TRIG 201 (A) 09/24/2014 HDL 34 (A) 09/24/2014 LDL 109 09/24/2014 Lab Results Component Value Date TSH 1.15 01/20/2019 T4, Free Date Value Ref Range Status 01/20/2019 1.0 0.7 - 1.7 ng/dL Final Lab Results Component Value Date WBC 12.17 (H) 01/23/2019 HGB 14.3 01/23/2019 HCT 42.4 01/23/2019 MCV 84.1 01/23/2019 PLT 239 01/23/2019 This SmartLink has not been configured with any valid records. This SmartLink has not been configured with any valid records. Laboratory and Additional Data Reviewed: Laboratory 01/23/19 9:02 AM Microbiology 01/23/19 9:02 AM Pathology 01/23/19 9:02 AM Cardiology 01/23/19 9:02 AM Medications 01/23/19 9:02 AM Thank you for this consultation, we will continue to follow this patient with you. Melinda Fernandez MD * Kristin Walker PA-C - 01/23/2019 7:10 AM EST 01/23/19 Fernando Helton SUBJECTIVE: Patient resting supine in bed, head of bed elevated at 45 degrees. Patient denies chestpain outside of my normal . No obvious visible distress, watching TV. Dr. Mcneil to begin to speak with patient and family regarding procedure scheduled for tomorrow, 01/24/2019. OBJECTIVE: VITAL SIGNS: BP 97/69 (BP Location: Right arm, Patient Position: Lying) Pulse 89 Temp 97.8 F (36.6 C) (Oral) Resp 14 Ht 5' 7 Wt 114 kg (251 lb 3.4 oz) SpO2 93% BMI 39.35 kg/m Labs: Recent Labs 01/21/19 0607 01/22/19 0527 01/23/19 0338 NA 135 135 133* K 4.0 3.9 4.0 CL 102 102 99 BICARB 26 25 27 BUN 22 26* 25 CREATININE 1.11 1.23 1.22 GLUCOSE 116* 125* 124* Recent Labs 01/21/19 0607 01/22/19 0527 01/23/19 0338 WBC 11.28* 11.38* 12.17* HGB 14.2 13.5 14.3 HCT 43.6 41.8 42.4 PLT 267 237 239 Recent Labs 01/20/19 1000 INR 1.0 01/20/2019 carotid ultrasound duplex: No evidence of stenosis in bilateral internal carotid artery, patent vertebral arteries bilaterally no evidence of subclavian stenosis bilaterally 01/20/2019 upper respiratory aerobic culture: Positive light Staphylococcus aureus, MSSA 01/20/2019 hemoglobin A1c: 6.5 01/21/2019 urine aerobic culture: +10,000-49,000 Staphylococcus aureus 01/21/2019 PFT: FEV1 79% pre-bronchodilator, 81% postbronchodilator 01/21/2019 transthoracic echocardiography: Mildly dilated left ventricle with basal septal wall hypertrophy measuring 1.5 cm in maximal thickness. Mild segmental left ventricular systolic dysfunctionwith estimated LVEF 45-50%. Wall motion abnormalities as outlined below. Impaired LV relaxation. Dilated right ventricle with grossly normal systolic function. No hemodynamically significant valvulardisease. Mildly dilated aortic root measuring 4 cm. Current Medications: aspirin EC tablet 81 mg 81 mg, Oral, Daily Given, 81 mg at 01/22 08 atorvastatin (LIPITOR) tablet 20 mg 20 mg, Oral, at bedtime Given, 20 mg at 01/22 2113 budesonide-formoterol (SYMBICORT) 160-4.5 mcg/actuation inhaler 2 puff 2 puff, Inhl, BID Given, 2 puff at 01/23 656 carvedilol (COREG) tablet 25 mg 25 mg, Oral, BID with meals Given, 25 mg at 01/22 185 furosemide (LASIX) injection 20 mg 20 mg, IV, Q8H JUVENCIO Given, 20 mg at 01/23 06 ipratropium-albuterol (DUO-NEB) 0.5-2.5 mg/3 ml nebulizer solution 3 mL 3 mL, nebu, Q6H JUVENCIO Given, 3 mL at 01/22 06 lisinopril (PRINIVIL,ZESTRIL) tablet 10 mg 10 mg, Oral, Daily with lunch Given, 10 mg at 01/22 141 mupirocin (BACTROBAN) 2 % ointment (sub for nasal use) No Dose/Rate, Nasl, BID Given, No Dose/Rate at 01/22 2100 nitroGLYCERIN (NITRO-BID) 2 % ointment 1 inch 1 inch, TP, Q6H Given, 1 inch at 01/17 2118 pantoprazole (PROTONIX) EC tablet 40 mg 40 mg, Oral, BID Given, 40 mg at 01/22 224 potassium chloride SA (K-DUR,KLOR-CON) CR tablet 10 mEq 10 mEq, Oral, Daily Given, 10 mEq at 01/22 08 rOPINIRole (REQUIP) tablet 2 mg 2 mg, Oral, Nightly Given, 2 mg at 01/23 1856 sodium chloride (PF) (NS) flush 5 mL 5 mL, IV, Q8H JUVENCIO Ordered varenicline (CHANTIX) tablet 1 mg 1 mg, Oral, BID Given, 1 mg at 01/22 2058 acetaminophen (TYLENOL) tablet 650 mg 650 mg, Oral, Q4H PRN Given, 650 mg at 01/20 2038 albuterol inhaler 2 puff 2 puff, Inhl, Q6H PRN Given, 2 puff at 01/21 0735 aluminum-magnesium hydroxide-simethicone (MAALOX PLUS) 200-200-20 mg/5 mL suspension 30 mL 30 mL, Oral, 4x Daily PRN Given, 30 mL at 01/22 170 calcium carbonate (TUMS) chewable tablet 500 mg 500 mg, Oral, BID PRN Given, 500 mg at 01/22 224 ondansetron (ZOFRAN) injection 4 mg 4 mg, IV, Q6H PRN Given, 4 mg at 01/21 1023 zolpidem (AMBIEN) tablet 5 mg 5 mg, Oral, Nightly PRN Given, 5 mg at 01/227 Drips: heparin infusion (weight based dosing) 17 Units/kg/hr (01/23/19 0421) heparin sodium chloride 0.9 % Physical Exam ASSESSMENT: Mr. Fernando Helton is a pleasant 48-year-old male with a known past medical history of coronary artery disease, myocardial infarction status post multiple PCI to LAD on Eliquis antiplatelet therapy, former tobacco abuse, hypertension, hyperlipidemia, COPD, ISAC and morbid obesity who presented to [facility] on 01/17/2019 with complaints of increasing chest pain which he is been experiencing over the course of the last 3 to 5 months. EKG revealed nonspecific changes and serum troponin within normal limits. Given risk factors he is taken to the cardiac catheterization lab by Dr. Carlo Mercedes and is found with single-vessel coronary artery disease with in-stent occlusion of the LAD and mid segment. He has a preserved ejection fraction of 45%. In light of the cardiac catheterization findings and patient presentation, Dr. Blake Mcneil was asked to evaluate Mr. Fernando Helton for possible surgical revascularization of the heart. 1. Known coronary artery disease, status post multiple PCI stenting to LAD 2. Essential hypertension 3. Hyperlipidemia 4. Chronic obstructive pulmonary disease 5. Obstructive sleep apnea, noncompliant with CPAP 6. Morbid obesity per Medicare criteria with body mass index greater than 40 7. Former tobacco abuse, managed with Chantix 8. Anxiety disorder 9. Gastroesophageal reflux disease 10. Cluster headaches 11. Mood disorder 12. Metabolic syndrome 13. Chronic sinusitis 14. History of deviated septum 15. Internal hemorrhoids 16. Chronic bilateral lower extremity edema, right greater than left 17. Remote history of nasal fracture 18. Anterior lateral STEMI on 05/09/2012 19. Anterior STEMI secondary to subacute LAD stent thrombosis on 09/24/2014, managed with Effient, last dose 01/20/2019 20. Cardiac arrest with ventricular fibrillation with [place] on 09/24/2014 21. Acute respiratory failure requiring vent mechanical ventilation on 09/24/2014 22. Chronic diastolic congestive heart failure 23. Pneumomediastinum on 01/12/2007 CT, secondary to severe coughing and ruptured alveoli 24. Pericarditis on 02/25/2007 and 09/23/2017 25. Right lower extremity claudication 26. Right cavernous hepatic lobe hemangioma 27. Superficial thrombophlebitis of right forearm, 12/26/2006 28. Chronic orthostatic dizziness with witnessed syncopal episode every month 29. Left groin lesion, intermittently draining malodorous white purulent pus 30. Chronic leukocytosis, evaluated by Dr. Trini Lofton 11/2016 31. Unstable angina this admission 32. Right external iliac artery stenosis, this admission 33. Newly diagnosed diabetes mellitus type 2 this admission PLAN: Cardiothoracic surgery continuing to follow Preoperative orders placed Tentatively scheduled for single-vessel coronary artery bypass grafting without the use of cardiopulmonary bypass by Dr. Blake Mcneil on 01/24/2019 Dr. Mcneil to speak with family and patient this morning regarding procedure, alternatives and risks Consent signed and placed on to chart N.p.o. 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 He is from home with a spouse. Hehad a heart cath on 01/20 and is a consult with cardiovascular surg and had now been scheduled for aCABG on 01/24. Will follow for any discharge need. * Delmi Donis MD - 01/22/2019 10:05 AM EST [facility] Medicine Inpatient Follow-up 01/22/2019 Delmi Donis MD [facility] Patient: Fernando Helton Date of : 1970 (48 y.o.) PCP: Moises Patel MD ASSESSMENT/PLAN: Fernando Helton 48 y.o. male presented with complains of Active Problems: Chest pain ACS (acute coronary syndrome) (HCC) PAD (peripheral artery disease) ([facility]) PLAN: Chest pain; intermittent, continue to monitor on telemetry; patient is status post left heart cath on 01/20 he was found to have an in-stent occlusion of the mid LAD. Cardiovascular surgery has been consulted Coronary artery disease; cardiovascular surgery has patient was scheduled for CABG on 01/24/2019, Dr. Mcneil following PAD; patient seen by vascular surgery today PA: ABIs have been done. Recommendation follow-up in the clinic as an outpatient. Continue smoking cessation, high intensity statin Plavix and aspirin. Diabetes mellitus; Dr. Fernandez consulted hemoglobin A1c is 6.5, patient diet changed to diabetic cardiac diet. No diabetic medication started at this time. Will monitor glucose AC and at bedtime SUBJECTIVE: No acute issues overnight All other systems reviewed and negative other than noted above. OBJECTIVE: Physical Examination: BP 129/89 (BP Location: Left arm, Patient Position: Sitting) Pulse 82 Temp 97.5 F (36.4 C) (Oral) Resp 16 Ht 5' 7 Wt 115.4 kg (254 lb 6.6 oz) SpO2 96% BMI 39.85 kg/m General Appearance: Alert, well appearing, and in no acute distress. HEENT: Head - Normocephalic, atraumatic. Eyes - ROSELINE bilaterally and EOMI. Ears - normal external appearance, hearing intact. Nose - normal, no erythema. Throat - mucous membranes moist, pharynx without lesions. Neck: Supple, trachea midline. Cardiovascular: S1, S2 normal. No murmurs, rubs, clicks or gallops appreciated. No pedal edema. Nonpalpable DP pulse right and absent Doppler signal. Left DP and bilateral PT withtriphasic Doppler signal. Respiratory: Lungs clear to auscultation, no wheezes, rales or rhonchi heard. Abdomen: Soft, non-tender, normal bowel sounds, non-distended, no masses or organomegaly appreciated. Neurological: Grossly normal motor and sensory exam. No focal deficits. Musculoskeletal: No joint tenderness, deformity or swelling. Skin: Normal coloration and turgor. No rashes. Psych: Alert, oriented x 3. Normal mood and affect. CURRENT MEDICATIONS: aspirin 81 mg Oral Daily atorvastatin 20 mg Oral at bedtime budesonide-formoterol 2 puff Inhalation BID carvedilol 25 mg Oral BID with meals furosemide 20 mg Intravenous Q8H JUVENCIO ipratropium-albuterol 3 mL Nebulization Q6H JUVENCIO lisinopril 10 mg Oral Daily with lunch mupirocin Nasal BID nitroGLYCERIN 1 inch Topical Q6H pantoprazole 40 mg Oral Daily potassium chloride SA 10 mEq Oral Daily rOPINIRole 2 mg Oral Nightly varenicline 1 mg Oral BID Results/Medications Reviewed 01/22/19 10:05 AM: Results from last 7 days Lab Units 01/22/1952601/21/19 0607 01/20/19 0419 SODIUM mmol/L 135 135 138 POTASSIUM mmol/L 3.9 4.0 3.9 CHLORIDE mmol/L 102 102 106 BUN mg/dL 26* 22 19 CREATININE mg/dL 1.23 1.11 1.17 GLUCOSE mg/dL 125* 116* 134* CALCIUM mg/dL 8.9 9.1 8.3* Results from last 7 days Lab Units 01/22/19 0527 01/21/19 0607 01/20/19 1021 01/20/19 0419 WBC K/mcL 11.38* 11.28* -- 13.44* HGB g/dL 13.5 14.2 -- 13.6 HEMOGLOBIN BG g/dL -- -- 14.1 -- HEMATOCRIT, CALCULATED % -- -- 43.1 -- HCT % 41.8 43.6 -- 41.2 PLT K/mcL 237 267 -- 259 Results from last 7 days Lab Units 01/17/19 1753 01/17/19 1450 01/17/19 1208 TROPONIN I ng/L <15 <15 <15 Results from last 7 days Lab Units 01/22/19 0527 01/21/19 2158 01/20/19 1000 01/20/19 0420 01/17/19 1208 INR -- -- 1.0 -- -- 1.0 PTT seconds 44* 30 -- 61* < > -- < > = values in this interval not displayed. Results from last 7 days Lab Units 01/20/19 1000 ALK PHOS U/L 68 BILIRUBIN TOTAL mg/dL 0.7 BILIRUBIN DIRECT mg/dL 0.1 TOTAL PROTEIN g/dL 6.3 ALTR U/L 79* AST U/L 42 CULTURES: Reviewed 10:05 AM IMAGING: Reviewed 10:05 AM * Vickie Quinteros CNP - 01/22/2019 8:52 AM EST Cardiology Progress Note [facility] Cardiology Sign-Off Discharge Medications: Continue current cardiac medications at current doses, unlimited duration. Follow-up Imaging, Testing: Per CTS team Follow-up Appointments: Per CTS team Additional Instructions Reviewed with Patient and/or Family: N/A Assessment/Plan: ACS (acute coronary syndrome) (HCC) Assessment & Plan Patient presented 01/20/2019 with chest tightness associated with nausea and shortness of breath. Occasionally discomfort would radiate into the left jaw. Serial troponins have been negative, EKG showed old anterolateral PA with mild ST-T changes with d-dimer negative and BNP not being elevated. November 2018 echo showed an EF of 45%. Questionable possible apical LV thrombus with subsequent MRIdone December 25 which did not show any evidence of LV thrombus. He had reported compliance to medicines which include aspirin and Effient. 01/20/2019 patient underwent left heart catheterization which showed single- vessel coronary artery disease with in-stent occlusion of LAD in mid segment. Noted to have moderate LV systolic dysfunctionwith hypokinesis of the mid to distal anterior wall. Elevated LVEDP of 32 mmHg. Cardiothoracic surgery was consulted for single-vessel CABG SPARKS to LAD. His Effient was placed on hold with continuation of aspirin and statin therapy. He was initiated on Lasix IV due to his elevated LVEDP. OHS is tentatively scheduled for 01/24/2019. General cardiology will sign off for now, please call with any additional questions or concerns. LOS: 2 days Subjective: Mr. Helton denies chest pain, dyspnea, palpitations, pain or swelling in the groin, peripheral swelling or dizziness. Objective: Vital signs in last 24 hours: Temp: [97.5 F (36.4 C)-98.3 F (36.8 C)] 97.5 F (36.4 C) Heart Rate: [67-92] 82 Resp: [14-16] 16 BP: (97-129)/(63-94) 129/89 Physical Exam: Alert, no acute distress JVP is not elevated Heart is regular rate and rhythm. No gallop or rub. No murmur Lungs are clear to ausculation bilaterally. Nonlabored respirations. Abdomen has no hepatomegally Lower extremeties have no edema. Lab Review Today's available lab reviewed. * Slim Low CNP - 01/22/2019 8:34 AM EST Patient ID: Patient Name: Fernando Helton Admit Date: 01/17/2019 MR #: [id number] : 1970 Current location: [facility] Physicians: Moises Patel MD (Family); Kristin BARCENAS (Referring) Reason for consult: Type 2 diabetes New diagnosis Assessment/Plan: Dx: Type 2 diabetes, under good control Currently taking as outpatient: No oral hypoglycemic medications Current Hemoglobin A1C= 6.5% 01/20/19 Lab Results Component Value Date HGBA1C 6.5 (H) 01/20/2019 NOTES: 01/21: BG reviewed since admission. Patient presented to the hospital with chest pain and underwentheart cath 01/20. Stent to LAD is occluded and the patient will need CABG surgery. CT surgery has seen the patient and plan is to move forward with surgery on Sunday. Patient has not had any diabetes treatment during this hospital stay as he was just found to have an elevated A1C., of 6.5%. Patient h as never been told he has diabetes. 01/22: BG reviewed over last 24 hours. Patient is currently on SSI only. Blood Glucoses: 01/20: 134 (from Chemistry 01/20 AM) 01/21: 116---119---175---147 01/22: 125 Plan: 1. Rx changes: see below Adjust diet to CHO controlled Check BG QAC/HS. 01/22: CPM. 2. Education: Reviewed ABCs of diabetes management (respective goals in parentheses): A1C (7.0-8.0), blood pressure (<130/80), and cholesterol (LDL <100). Referral to Diabetes Education Referral to Nutrition therapy Subjective: Interval HPI: 01/22: No complaints. Brief HPI: Mr. Helton is a 48-year-old male patient presented to the emergency department on 01/20/2019 for complaints of chest pain. His initial evaluation was negative however he was admitted the hospital for further observation/management. Patient was seen and evaluated by cardiology and subsequently underwent a cardiac catheterization on 01/20/2019. Patient was found to have an occluded LAD stent, that hadbeen previously placed about 3 to 4 years ago. He was referred to CT surgery for bypass graft surgery in the near future. CT surgery came to evaluate the patient and ordered a hemoglobin A1c. He was found to have a hemoglobin A1c of 6.5%, and is also been noted to have 2 elevated blood sugar valuesduring his hospital stay. Endocrinology was consulted to further evaluate the patient and provide further treatment recommendations. Patient reports he is never been told he has diabetes. He is also never been told he even had impaired fasting blood glucose. He reports that his maternal family has a history of type 2 diabetes, especially in his uncle. The patient reports he drinks regular pop, at least 2 cans of Pepsi every day.He has been drinking more than that until recently he cut down. He does typically avoid concentrated sweets. The patient also suffers from coronary artery disease, hypertension and hyperlipidemia. Yenifer suffers from ischemic systolic heart failure and is followed by Pallavi David clinical nurse specialist in our heart failure clinic. Patient suffers from COPD and sleep apnea and is supposed to be wearing a CPAP however he is now always compliant with. Again upon further evaluation the patient wasfound to have an elevated hemoglobin A1c of 6.5% on 01/20/2019. Complications of diabetes include: Retinopathy: Negative Nephropathy: Negative Peripheral Neuropathy: Negative Autonomic Neuropathy: Negative Allergies: Allergies Allergen Reactions Imdur [Isosorbide Mononitrate] Caused severe headache and had to stop it. Home Medications: Outpatient Medications Marked as Taking for the 01/17/19 encounter (Hospital Encounter): albuterol 90 mcg/actuation inhaler, Inhale 2 puffs every 6 (six) hours as needed for wheezing or shortness of breath . aspirin 81 MG EC tablet, Take 81 mg by mouth daily. atorvastatin (LIPITOR) 20 MG tablet, Take 1 (one) tablet (20 mg total) by mouth daily . budesonide-formoterol (Symbicort) 160-4.5 mcg/actuation inhaler, Inhale 2 puffs 2 (two) times a day. carvedilol (COREG) 25 MG tablet, Take 1 (one) tablet (25 mg total) by mouth 2 (two) times a day with meals . enalapril (VASOTEC) 5 MG tablet, Take 5 mg by mouth 2 (two) times a day . furosemide (LASIX) 40 MG tablet, Take 1 (one) tablet (40 mg total) by mouth daily . ipratropium-albuterol (DUO-NEB) 0.5-2.5 mg/3 ml nebulizer, Take 3 mL by nebulization every 6 (six) hours . omeprazole (PRILOSEC) 40 MG capsule, Take 40 mg by mouth daily potassium chloride (K-DUR) 10 MEQ CR tablet, Take 10 mEq by mouth 2 (two) times a day . prasugrel (EFFIENT) 10 mg tablet, Take 1 (one) tablet (10 mg total) by mouth daily . rOPINIRole (REQUIP) 2 MG tablet, Take 2 mg by mouth nightly. varenicline (CHANTIX) 1 mg tablet, Take 1 mg by mouth 2 (two) times a day . Current Medications: aspirin 81 mg Oral Daily atorvastatin 20 mg Oral at bedtime budesonide-formoterol 2 puff Inhalation BID carvedilol 25 mg Oral BID with meals furosemide 20 mg Intravenous Q8H JUVENCIO ipratropium-albuterol 3 mL Nebulization Q6H JUVENCIO lisinopril 10 mg Oral Daily with lunch mupirocin Nasal BID nitroGLYCERIN 1 inch Topical Q6H pantoprazole 40 mg Oral Daily potassium chloride SA 10 mEq Oral Daily rOPINIRole 2 mg Oral Nightly varenicline 1 mg Oral BID acetaminophen, albuterol, atropine, heparin, hydrOXYzine, LORazepam, ondansetron, sodium chloride 0.9%, zolpidem Review of Systems: Review of Systems Constitutional: Negative for appetite change, fatigue and unexpected weight change. HENT: Negative. Eyes: Negative. Respiratory: Positive for chest tightness. Negative for shortness of breath (with activity ). Cardiovascular: Negative for chest pain and leg swelling. Gastrointestinal: Negative for abdominal pain, constipation, diarrhea, nausea and vomiting. Endocrine: Negative for cold intolerance, heat intolerance, polydipsia, polyphagia and polyuria. Genitourinary: Negative for frequency. Musculoskeletal: Negative for arthralgias and myalgias. Skin: Negative. Neurological: Negative for dizziness, tremors, weakness and headaches. Psychiatric/Behavioral: Negative. History: Past Medical History: Diagnosis Date Acute respiratory failure ([facility]) 09/2014 requring mechanical ventilation Anxiety Bilateral lower extremity edema R > L CAD (coronary artery disease) CAD s/p [facility] with 1 stent in left main 07/2012, replaced 09/2014 Cardiac arrest with ventricular fibrillation ([facility]) 09/25/2014 CHF (congestive heart failure), NYHA class I, chronic, diastolic ([facility]) Chronic sinusitis Claudication of right lower extremity ([facility]) Cluster headache COPD (chronic obstructive pulmonary disease) ([facility]) 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 Bev Tolentino Metabolic syndrome Mood disorder ([facility]) Nasal fracture Obstructive sleep apnea noncompliant with CPAP Orthostatic dizziness with intermittent syncope Pericarditis 02/25/07; 09/23/17 Pneumomediastinum ([facility]) 01/12/2007 secondary to severe coughing spell & ruptured alveoli Rotator cuff tear, right 1997 s/p repair SLAP tear of shoulder 2011 left - s/p surgery to place [address] elevation myocardial infarction (STEMI) of anterolateral wall (HCC) 05/09/2012 anterolateral STEMI involving left anterior descending coronary artery (HCC) 09/25/2014 anterior Superficial thrombophlebitis of right upper extremity 12/26/2006 Past Surgical History: Procedure Laterality Date APPENDECTOMY 1999 BONE MARROW BIOPSY W/ ASPIRATION Left 11/27/2016 L posterior iliac crest; Dr. Bev Tolentino CARDIAC CATHETERIZATION 09/24/2014 Segment LV dysf., mild to moderate LV systolic impairment, moderate LV diastolic dysf.; single vessel CAD by Dr. Whitney CARDIAC CATHETERIZATION 05/09/2012 Emergent. Severe LVSD EF 20%; single vessel CAD with acute thrombotic occlusion of left anterior descending by Dr. Rowland CARDIAC CATHETERIZATION Left 09/28/2015 Dr. 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 Normal LV end-diastolic pressure. CARDIAC CATHETERIZATION 01/14/[address] Phillips CARDIAC CATHETERIZATION 11/24/[address] Rowland COLONOSCOPY 05/27/2015 CORONARY ANGIOPLASTY 12/25/2014 PCI with balloon angioplasty by Dr. Whitney of jailed diagonal CORONARY STENT PLACEMENT 05/09/2012 Drug eluted Alpine stent in the left anterior descending by Dr. Rowland CORONARY STENT PLACEMENT 09/24/2014 Subacute stent thrombosis by Dr. Whitney. This may be in the setting of areas of restenosis within the LAD stent ETHMOIDECTOMY Bilateral 06/25/[address] Gaitan [facility] LEFT HEART CATH N/A 01/20/2019 Procedure: Left Heart Cath; Surgeon: Carlo Mrecedes MD; Location: [facility]; Service: Cardiovascular IABP placement 05/09/[address] Rowland NASAL SEPTUM SURGERY 06/25/[address] Gaitan ROTATOR CUFF REPAIR Right 1997 SHOULDER ARTHROSCOPY W/ SUPERIOR LABRAL ANTERIOR POSTERIOR REPAIR Left 11/2012 @ [facility] SHOULDER ARTHROSCOPY W/ SUPERIOR LABRAL ANTERIOR POSTERIOR REPAIR Left 11/22/2011 shoulder arthroscopic anterior capsulorraphy, SLAP repair, acromioplasty, limited debridement of labrum and rotator cuff by Dr. Sexton SINUSOTOMY Bilateral 06/25/2007 with removal of tissue by Dr. Gaitan UPPER GASTROINTESTINAL ENDOSCOPY 2016 Family History Problem Relation Age of Onset Heart attack Father Heart disease Father s/p cabg x 4 in his 40s Coronary artery disease Father Hypertension Father Hyperlipidemia Father Heart disease Mother Stroke Mother 64 Hyperlipidemia Mother Coronary artery disease Other Cancer Paternal Uncle unknown cancer Hypertension Sister Diabetes Brother Heart disease Brother s/p PCI Melanoma Brother Social History Tobacco Use Smoking status: Former Smoker Packs/day: 1.00 Years: 35.00 Pack years: 35.00 Last attempt to quit: 05/12/2016 Years since quittin.6 Smokeless tobacco: Never Used Tobacco comment: Quit Substance Use Topics Alcohol use: Yes Alcohol/week: 0.0 standard drinks Comment: socially Drug use: Not Currently Types: Marijuana The following portions of the patient's history were reviewed and updated as appropriate: allergies, current medications, past family history, past medical history, past social history, past surgicalhistory and problem list. Objective: BP 129/89 (BP Location: Left arm, Patient Position: Sitting) Pulse 82 Temp 97.5 F (36.4 C) (Oral) Resp 16 Ht 5' 7 Wt 115.4 kg (254 lb 6.6 oz) SpO2 96% BMI 39.85 kg/m Wt Readings from Last 3 Encounters: 01/22/19 115.4 kg (254 lb 6.6 oz) 01/04/19 113.4 kg (250 lb) 12/26/18 113.9 kg (251 lb) Physical Exam: Physical Exam Constitutional: He is oriented to person, place, and time. He appears well- developed and well-nourished. No distress. HENT: Head: Normocephalic and atraumatic. Mouth/Throat: Oropharynx is clear and moist. Eyes: Pupils are equal, round, and reactive to light. Conjunctivae and EOM are normal. Neck: Normal range of motion. Neck supple. No thyromegaly present. Cardiovascular: Normal rate, regular rhythm, normal heart sounds and intact distal pulses. Exam reveals no gallop and no friction rub. No murmur heard. Pulses: Dorsalis pedis pulses are 2+ on the right side and 2+ on the left side. Pulmonary/Chest: Effort normal and breath sounds normal. No respiratory distress. He has no wheezes. He has no rales. Abdominal: Soft. Bowel sounds are normal. He exhibits no distension. There is no abdominal tenderness. Musculoskeletal: Normal range of motion. General: No deformity or edema. Right foot: Normal. Normal range of motion. No swelling or deformity. Left foot: Normal. Normal range of motion. No swelling or deformity. Neurological: He is alert and oriented to person, place, and time. Skin: Skin is warm and dry. No rash noted. No erythema. Psychiatric: He has a normal mood and affect. His behavior is normal. Judgment and thought content normal. Laboratory Review: BP 129/89 (BP Location: Left arm, Patient Position: Sitting) Pulse 82 Temp 97.5 F (36.4 C) (Oral) Resp 16 Ht 5' 7 Wt 115.4 kg (254 lb 6.6 oz) SpO2 96% BMI 39.85 kg/m Lab Results Component Value Date HGBA1C 6.5 (H) 01/20/2019 Glucose (mg/dL) Date Value 01/22/2019 125 (H) Creatinine (mg/dL) Date Value 01/22/2019 1.23 09/27/2018 1.0 01/09/2018 1.14 Lab Results Component Value Date CHOL 183 09/24/2014 TRIG 201 (A) 09/24/2014 HDL 34 (A) 09/24/2014 LDL 109 09/24/2014 Lab Results Component Value Date TSH 1.15 01/20/2019 T4, Free Date Value Ref Range Status 01/20/2019 1.0 0.7 - 1.7 ng/dL Final Lab Results Component Value Date WBC 11.38 (H) 01/22/2019 HGB 13.5 01/22/2019 HCT 41.8 01/22/2019 MCV 85.0 01/22/2019 PLT 237 01/22/2019 This SmartLink has not been configured with any valid records. This SmartLink has not been configured with any valid records. Laboratory and Additional Data Reviewed: Laboratory 01/22/19 10:31 AM Microbiology 01/22/19 10:31 AM Pathology 01/22/19 10:31 AM Cardiology 01/22/19 10:31 AM Medications 01/22/19 10:31 AM Thank you for this consultation, we will continue to follow this patient with you. Slim Low CNP * Kristin Walker PA-C - 01/22/2019 7:09 AM EST 01/22/19 Fernando Helton SUBJECTIVE: Patient resting supine in bed, head of bed elevated at 45 degrees. Watching TV. No obvious visible distress. Patient reports no chest pain outside of his normal discomfort, rates 1-2 across precordial chest. Denies dyspnea, nausea or other complaints. OBJECTIVE: VITAL SIGNS: BP (!) 129/90 (BP Location: Right arm) Pulse 87 Temp 98.3 F (36.8 C) (Oral) Resp16 Ht 5' 7 Wt 115.4 kg (254 lb 6.6 oz) SpO2 96% BMI 39.85 kg/m Labs: Recent Labs 01/20/1941801/21/1960601/22/19 0527 NA 138 135 135 K 3.9 4.0 3.9 CL 106 102 102 BICARB 24 26 25 BUN 19 22 26* CREATININE 1.17 1.11 1.23 GLUCOSE 134* 116* 125* Recent Labs 01/20/199 01/20/19 1021 01/21/19 0607 01/22/19 0527 WBC 13.44* -- 11.28* 11.38* HGB 13.6 14.1 14.2 13.5 HCT 41.2 43.1 43.6 41.8 PLT 259 -- 267 237 Recent Labs 01/20/19 1000 INR 1.0 01/20/2019 carotid ultrasound duplex: No evidence of stenosis in bilateral internal carotid artery, patent vertebral arteries bilaterally no evidence of subclavian stenosis bilaterally 01/20/2019 upper respiratory aerobic culture: Positive light Staphylococcus aureus, MSSA 01/20/2019 hemoglobin A1c: 6.5 01/21/2019 urine aerobic culture: +10,000-49,000 Staphylococcus aureus 01/21/2019 PFT: FEV1 79% pre-bronchodilator, 81% postbronchodilator 01/21/2019 transthoracic echocardiography: Mildly dilated left ventricle with basal septal wall hypertrophy measuring 1.5 cm in maximal thickness. Mild segmental left ventricular systolic dysfunctionwith estimated LVEF 45-50%. Wall motion abnormalities as outlined below. Impaired LV relaxation. Dilated right ventricle with grossly normal systolic function. No hemodynamically significant valvulardisease. Mildly dilated aortic root measuring 4 cm. Current Medications: aspirin EC tablet 81 mg 81 mg, Oral, Daily Given, 81 mg at 01/21 827 atorvastatin (LIPITOR) tablet 20 mg 20 mg, Oral, at bedtime Given, 20 mg at 01/21 2021 budesonide-formoterol (SYMBICORT) 160-4.5 mcg/actuation inhaler 2 puff 2 puff, Inhl, BID Given, 2 puff at 01/23 656 carvedilol (COREG) tablet 25 mg 25 mg, Oral, BID with meals Given, 25 mg at 01/21 2021 furosemide (LASIX) injection 20 mg 20 mg, IV, Q8H JUVENCIO Given, 20 mg at 01/22 653 ipratropium-albuterol (DUO-NEB) 0.5-2.5 mg/3 ml nebulizer solution 3 mL 3 mL, nebu, Q6H JUVENCIO Given, 3 mL at 01/23 656 lisinopril (PRINIVIL,ZESTRIL) tablet 10 mg 10 mg, Oral, Daily with lunch Given, 10 mg at 01/21 1201 mupirocin (BACTROBAN) 2 % ointment (sub for nasal use) No Dose/Rate, Nasl, BID Given, No Dose/Rate at 01/21 2026 nitroGLYCERIN (NITRO-BID) 2 % ointment 1 inch 1 inch, TP, Q6H Given, 1 inch at 01/17 2118 pantoprazole (PROTONIX) EC tablet 40 mg 40 mg, Oral, Daily Given, 40 mg at 01/21 827 potassium chloride SA (K-DUR,KLOR-CON) CR tablet 10 mEq 10 mEq, Oral, Daily Given, 10 mEq at 01/21 827 rOPINIRole (REQUIP) tablet 2 mg 2 mg, Oral, Nightly Given, 2 mg at 01/21 2021 varenicline (CHANTIX) tablet 1 mg 1 mg, Oral, BID Given, 1 mg at 01/21 2021 Drips: heparin infusion (weight based dosing) 12.8645 Units/kg/hr (01/22/19 0650) heparin Physical Exam Constitutional: He is oriented to person, place, and time. He appears well- developed and well-nourished. No distress. Denies fever, chills, dyspnea, orthopnea, paroxysmal nocturnal dyspnea, syncope nor near syncope. Complains of normal discomfort across precordial region of chest, rates 1-2. HENT: Head: Normocephalic and atraumatic. Mouth/Throat: No oropharyngeal exudate. Eyes: Pupils are equal, round, and reactive to light. EOM are normal. No scleral icterus. Neck: Normal range of motion. Neck supple. No thyromegaly present. Cardiovascular: Normal rate, regular rhythm, normal heart sounds and intact distal pulses. Exam reveals no gallop and no friction rub. No murmur heard. Normal sinus rhythm on telemetry Pulmonary/Chest: Effort normal. No respiratory distress. He has wheezes. He has no rales. Respirations even and unlabored. No obvious visible distress. Expiratory wheezes present, status post respiratory treatment Abdominal: Soft. Bowel sounds are normal. He exhibits no distension. There is no abdominal tenderness. There is no rebound. Round, firm, nontender with palpation. Bowel sounds hypoactive. Last bowel movement: 01/21/2019 Genitourinary: Genitourinary Comments: Voiding without difficulty Musculoskeletal: Normal range of motion. General: Edema present. Comments: Bilateral lower extremity edema, +1 right greater than left Neurological: He is alert and oriented to person, place, and time. Skin: Skin is warm and dry. He is not diaphoretic. Psychiatric: He has a normal mood and affect. His behavior is normal. Judgment and thought content normal. ASSESSMENT: Mr. Fernando Helton is a pleasant 48-year-old male with a known past medical history of coronary artery disease, myocardial infarction status post multiple PCI to LAD on Eliquis antiplatelet therapy, former tobacco abuse, hypertension, hyperlipidemia, COPD, ISAC and morbid obesity who presented to [facility] on 01/17/2019 with complaints of increasing chest pain which he is been experiencing over the course of the last 3 to 5 months. EKG revealed nonspecific changes and serum troponin within normal limits. Given risk factors he is taken to the cardiac catheterization lab by Dr. Carlo Mercedes and is found with single-vessel coronary artery disease with in-stent occlusion of the LAD and mid segment. He has a preserved ejection fraction of 45%. In light of the cardiac catheterization findings and patient presentation, Dr. Blake Mcneil was asked to evaluate Mr. Fernando Helton for possible surgical revascularization of the heart. 1. Known coronary artery disease, status post multiple PCI stenting to LAD 2. Essential hypertension 3. Hyperlipidemia 4. Chronic obstructive pulmonary disease 5. Obstructive sleep apnea, noncompliant with CPAP 6. Morbid obesity per Medicare criteria with body mass index greater than 40 7. Former tobacco abuse, managed with Chantix 8. Anxiety disorder 9. Gastroesophageal reflux disease 10. Cluster headaches 11. Mood disorder 12. Metabolic syndrome 13. Chronic sinusitis 14. History of deviated septum 15. Internal hemorrhoids 16. Chronic bilateral lower extremity edema, right greater than left 17. Remote history of nasal fracture 18. Anterior lateral STEMI on 05/09/2012 19. Anterior STEMI secondary to subacute LAD stent thrombosis on 09/24/2014, managed with Effient, last dose 01/20/2019 20. Cardiac arrest with ventricular fibrillation with [place] on 09/24/2014 21. Acute respiratory failure requiring vent mechanical ventilation on 09/24/2014 22. Chronic diastolic congestive heart failure 23. Pneumomediastinum on 01/12/2007 CT, secondary to severe coughing and ruptured alveoli 24. Pericarditis on 02/25/2007 and 09/23/2017 25. Right lower extremity claudication 26. Right cavernous hepatic lobe hemangioma 27. Superficial thrombophlebitis of right forearm, 12/26/2006 28. Chronic orthostatic dizziness with witnessed syncopal episode every month 29. Left groin lesion, intermittently draining malodorous white purulent pus 30. Chronic leukocytosis, evaluated by Dr. Trini Lofton 11/2016 31. Unstable angina this admission 32. Right external iliac artery stenosis, this admission 33. Newly diagnosed diabetes mellitus type 2 this admission PLAN: Ongoing Effient washout, last dose 01/20/2019 Cardiothoracic surgery continuing to follow Consent signed and placed on to chart Dr. Blake Mcneil to meet with patient and family to discuss procedure, alternatives and risks. * Columba Rodriguez CNP - 01/21/2019 1:31 PM EST General Cardiology Inpatient Follow-up Heart & Vascular [facility] 01/21/2019 Columba Rodriguez CNP [facility] Patient: Fernando Helton Date of : 1970 (48 y.o.) Referring Provider: No ref. provider found PCP: Moises Patel MD Assessment/Plan: ACS (acute coronary syndrome) ([facility]) Assessment & Plan Patient had presented 01/20/2019 with chest tightness associated with nausea and shortness of breath. Occasionally discomfort would radiate into the left jaw. Serial troponins have been negative, EKG shows old anterolateral PA with mild ST-T changes with d-dimer negative and BNP not being elevated. November 2018 echo showed an EF of 45%. Questionable possible apical LV thrombus with subsequent MRIdone December 25 which did not show any evidence of LV thrombus. He had reported compliance to medicines which include aspirin and Effient. 01/20/2019 patient underwent left heart catheterization which showed single- vessel coronary artery disease with in-stent occlusion of LAD in mid segment. Noted to have moderate LV systolic dysfunctionwith hypokinesis of the mid to distal anterior wall. Elevated LVEDP of 32 mmHg. Cardiothoracic surgery was consulted for single-vessel CABG SPARKS to LAD. His Effient was placed on hold with continuation of aspirin and statin therapy. He was initiated on Lasix 20 mg IV every 12 hours due to his elevated LVEDP. Vital signs have been stable. K+ 4.0; normal renal function. Hematology unremarkable. Recommendations: 1. CTS service following patient for possible CABG 01/24/19. Continue ASA, statin, Coreg, IV Lasix,Lisinopril, NTP. 2. Restart IV Heparin following cardiac nomogram. 3. Continue serial labs. Recommend keeping K+ >4.0 and Mg >2.0. Subjective: Denies any complaints of chest pain, shortness of breath. Awaiting possible CABG tentatively 01/24/19. Past Medical History: Diagnosis Date Acute respiratory failure (HCC) 09/2014 requring mechanical ventilation Anxiety Bilateral lower extremity edema R > L CAD (coronary artery disease) CAD s/p LHC with 1 stent in left main 07/2012, replaced 09/2014 Cardiac arrest with ventricular fibrillation (HCC) 09/25/2014 CHF (congestive heart failure), NYHA class I, chronic, diastolic (HCC) Chronic sinusitis Claudication of right lower extremity (HCC) Cluster headache COPD (chronic obstructive pulmonary disease) (HCC) 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 Bev Tolentino Metabolic syndrome Mood disorder ([facility]) Nasal fracture Obstructive sleep apnea noncompliant with CPAP Orthostatic dizziness with intermittent syncope Pericarditis 02/25/07; 09/23/17 Pneumomediastinum ([facility]) 01/12/2007 secondary to severe coughing spell & ruptured alveoli Rotator cuff tear, right 1998 s/p repair SLAP tear of shoulder 2011 left - s/p surgery to place [address] elevation myocardial infarction (STEMI) of anterolateral wall ([facility]) 05/09/2012 anterolateral STEMI involving left anterior descending coronary artery ([facility]) 09/25/2014 anterior Superficial thrombophlebitis of right upper extremity 12/26/2006 Past Surgical History: Procedure Laterality Date APPENDECTOMY 1998 BONE MARROW BIOPSY W/ ASPIRATION Left 11/27/2016 L posterior iliac crest; Dr. Bev Tolentino CARDIAC CATHETERIZATION 09/24/2014 Segment LV dysf., mild to moderate LV systolic impairment, moderate LV diastolic dysf.; single vessel CAD by Dr. Whitney CARDIAC CATHETERIZATION 05/09/2012 Emergent. Severe LVSD EF 20%; single vessel CAD with acute thrombotic occlusion of left anterior descending by Dr. Rowland CARDIAC CATHETERIZATION Left 09/28/2015 Dr. 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 Normal LV end-diastolic pressure. CARDIAC CATHETERIZATION 01/14/[address] Phillips CARDIAC CATHETERIZATION 11/24/[address] Rowland COLONOSCOPY 05/27/2015 CORONARY ANGIOPLASTY 12/25/2014 PCI with balloon angioplasty by Dr. Whitney of jailed diagonal CORONARY STENT PLACEMENT 05/09/2012 Drug eluted Alpine stent in the left anterior descending by Dr. Rowland CORONARY STENT PLACEMENT 09/24/2014 Subacute stent thrombosis by Dr. Whitney. This may be in the setting of areas of restenosis within the LAD stent ETHMOIDECTOMY Bilateral 06/25/[address] Gaitan LEFT HEART CATH N/A 01/20/2019 Procedure: Left Heart Cath; Surgeon: Carlo Mercedes MD; Location: [facility]; Service: Cardiovascular IABP placement 05/09/[address] Rowland NASAL SEPTUM SURGERY 06/25/[address] Gaitan ROTATOR CUFF REPAIR Right 1997 SHOULDER ARTHROSCOPY W/ SUPERIOR LABRAL ANTERIOR POSTERIOR REPAIR Left 11/2012 @ [facility] SHOULDER ARTHROSCOPY W/ SUPERIOR LABRAL ANTERIOR POSTERIOR REPAIR Left 11/22/2011 shoulder arthroscopic anterior capsulorraphy, SLAP repair, acromioplasty, limited debridement of labrum and rotator cuff by Dr. Sexton SINUSOTOMY Bilateral 06/25/2007 with removal of tissue by Dr. Gaitan UPPER GASTROINTESTINAL ENDOSCOPY 2016 Family History Problem Relation Age of Onset Heart attack Father Heart disease Father s/p cabg x 4 in his 40s Coronary artery disease Father Hypertension Father Hyperlipidemia Father Heart disease Mother Stroke Mother 64 Hyperlipidemia Mother Coronary artery disease Other Cancer Paternal Uncle unknown cancer Hypertension Sister Diabetes Brother Heart disease Brother s/p PCI Melanoma Brother Social History Tobacco Use Smoking Status Former Smoker Packs/day: 1.00 Years: 35.00 Pack years: 35.00 Last attempt to quit: 05/12/2016 Years since quittin.6 Smokeless Tobacco Never Used Tobacco Comment Quit Allergies: Imdur [isosorbide mononitrate] Current Facility-Administered Medications Medication Dose Route Frequency Provider Last Rate Last Dose acetaminophen (TYLENOL) tablet 650 mg 650 mg Oral Q4H PRN Meron Roper MD 650 mg at 01/20/192037 albuterol inhaler 2 puff 2 puff Inhalation Q6H PRN Meron Roper MD 2 puff at 01/21/19 0735 aspirin EC tablet 81 mg 81 mg Oral Daily Meron Roper MD 81 mg at 01/21/19 0827 atorvastatin (LIPITOR) tablet 20 mg 20 mg Oral at bedtime Meron Roper MD 20 mg at 01/20/192038 atropine injection 1 mg 1 mg Intravenous PRN Carlo Mercedes MD budesonide-formoterol (SYMBICORT) 160-4.5 mcg/actuation inhaler 2 puff 2 puff Inhalation BID Meron Roper MD 2 puff at 01/21/19 0811 carvedilol (COREG) tablet 25 mg 25 mg Oral BID with meals Meron Roper MD 25 mg at 01/21/19 0826 furosemide (LASIX) injection 20 mg 20 mg Intravenous Q8H [facility] Carlo Mercedes MD 20 mg at 01/21/19 1430 hydrOXYzine (ATARAX) tablet 25 mg 25 mg Oral Q6H PRN Ashley Caruso CNP 25 mg at 01/21/19 1430 ipratropium-albuterol (DUO-NEB) 0.5-2.5 mg/3 ml nebulizer solution 3 mL 3 mL Nebulization Q6H JUVENCIO Meron Roper MD 3 mL at 01/20/192023 lisinopril (PRINIVIL,ZESTRIL) tablet 10 mg 10 mg Oral Daily with lunch Meron Roper MD 10 mg at 01/21/19 1201 LORazepam (ATIVAN) tablet 0.5 mg 0.5 mg Oral Q6H PRN Jacinda Navarro CNP 0.5 mg at 01/21/19 0827 mupirocin (BACTROBAN) 2 % ointment (sub for nasal use) Nasal BID Kristin Byrnes PA-C nitroGLYCERIN (NITRO-BID) 2 % ointment 1 inch 1 inch Topical Q6H Meron Roper MD 1 inch at 118 ondansetron (ZOFRAN) injection 4 mg 4 mg Intravenous Q6H PRN Carola Arroyo CNP 4 mg at 01/21/19 1023 pantoprazole (PROTONIX) EC tablet 40 mg 40 mg Oral Daily Meron Roper MD 40 mg at 01/21/19826 perflutren lipid microspheres (DEFINITY) 0.143 mg/mL solution 0-10 mL of mixture 0-10 mL of mixtureIntravenous Once in imaging Kristin Byrnes PA-C potassium chloride SA (K-DUR,KLOR-CON) CR tablet 10 mEq 10 mEq Oral Daily Meron Roper MD 10 mEq at103/24/18826 rOPINIRole (REQUIP) tablet 2 mg 2 mg Oral Nightly Meron Roper MD 2 mg at 01/20/192037 sodium chloride 0.9% (NS) bolus 250 mL 250 mL Intravenous PRN Carlo Mercedes MD varenicline (CHANTIX) tablet 1 mg 1 mg Oral BID Meron Roper MD 1 mg at 01/21/19826 zolpidem (AMBIEN) tablet 5 mg 5 mg Oral Nightly PRN Jacinda Navarro CNP 5 mg at 01/20/192044 Current Outpatient Medications Medication Sig Dispense Refill albuterol 90 mcg/actuation inhaler Inhale 2 puffs every 6 (six) hours as needed for wheezing or shortness of breath . aspirin 81 MG EC tablet Take 81 mg by mouth daily. atorvastatin (LIPITOR) 20 MG tablet Take 1 (one) tablet (20 mg total) by mouth daily . 90 tablet 3 budesonide-formoterol (Symbicort) 160-4.5 mcg/actuation inhaler Inhale 2 puffs 2 (two) times a day . carvedilol (COREG) 25 MG tablet Take 1 (one) tablet (25 mg total) by mouth 2 (two) times a day withmeals . 180 tablet 3 enalapril (VASOTEC) 5 MG tablet Take 5 mg by mouth 2 (two) times a day . furosemide (LASIX) 40 MG tablet Take 1 (one) tablet (40 mg total) by mouth daily . 90 tablet 3 ipratropium-albuterol (DUO-NEB) 0.5-2.5 mg/3 ml nebulizer Take 3 mL by nebulization every 6 (six) hours . 360 mL 0 omeprazole (PRILOSEC) 40 MG capsule Take 40 mg by mouth daily potassium chloride (K-DUR) 10 MEQ CR tablet Take 10 mEq by mouth 2 (two) times a day . prasugrel (EFFIENT) 10 mg tablet Take 1 (one) tablet (10 mg total) by mouth daily . 90 tablet 3 rOPINIRole (REQUIP) 2 MG tablet Take 2 mg by mouth nightly. varenicline (CHANTIX) 1 mg tablet Take 1 mg by mouth 2 (two) times a day . enalapril (VASOTEC) 5 MG tablet TAKE 1 TABLET(5 MG) BY MOUTH TWICE DAILY 180 tablet 0 hydroCHLOROthiazide (HYDRODIURIL) 25 MG tablet Take 1 (one) tablet (25 mg total) by mouth daily . 90 tablet 3 potassium chloride SA (K-DUR,KLOR-CON) 10 MEQ tablet TAKE 1 TABLET(10 MEQ) BY MOUTH TWICE DAILY 180tablet 0 Review of Systems: Review of Systems Constitution: Negative for chills, decreased appetite, diaphoresis, fever and malaise/fatigue. HENT: Negative for congestion. Eyes: Negative for visual disturbance. Cardiovascular: Negative for chest pain, claudication, cyanosis, dyspnea on exertion, irregular heartbeat, leg swelling, near-syncope, orthopnea, palpitations, paroxysmal nocturnal dyspnea and syncope. Respiratory: Negative for cough, hemoptysis, shortness of breath, sleep disturbances due to breathing and wheezing. Endocrine: Negative for cold intolerance and heat intolerance. Skin: Negative for itching and rash. Musculoskeletal: Negative for back pain and falls. Gastrointestinal: Negative for bloating, abdominal pain, heartburn, melena, nausea and vomiting. Genitourinary: Negative for dysuria, flank pain and frequency. Neurological: Negative for dizziness, focal weakness, headaches, light- headedness, loss of balance,numbness, paresthesias and weakness. Psychiatric/Behavioral: Negative for altered mental status. Objective: Vital Signs: BP 121/81 Pulse 67 Temp 98 F (36.7 C) (Oral) Resp 14 Ht 5' 7 Wt 116.6 kg (257 lb) [id number]% BMI 40.25 kg/m Physical Examination: Physical Exam Constitutional: He is oriented to person, place, and time. He appears well- developed and well-nourished. No distress. HENT: Head: Normocephalic and atraumatic. Eyes: No scleral icterus. Neck: No JVD present. Cardiovascular: Normal rate, regular rhythm, normal heart sounds and intact distal pulses. Exam reveals no gallop and no friction rub. No murmur heard. Pulmonary/Chest: Effort normal and breath sounds normal. No respiratory distress. He has no wheezes. He has no rales. Abdominal: Soft. There is no abdominal tenderness. Musculoskeletal: General: No tenderness or edema. Neurological: He is alert and oriented to person, place, and time. Skin: Skin is warm and dry. Psychiatric: He has a normal mood and affect. His behavior is normal. Judgment and thought content normal. Vitals reviewed. Telemetry: SR Echocardiogram complete w contrast Final Result by Magda Durán MD (12/10/2018 1714) Cardiac Catheterization Final Result by Carlo Mercedes MD (01/20/2019 0914) Lab Results Component Value Date WBC 11.28 (H) 01/21/2019 HGB 14.2 01/21/2019 HCT 43.6 01/21/2019 MCV 84.7 01/21/2019 EXTMCV 84.5 01/09/2018 PLT 267 01/21/2019 RBC 5.15 01/21/2019 Lab Results Component Value Date CREATININE 1.11 01/21/2019 BUN 22 01/21/2019 NA 135 01/21/2019 K 4.0 01/21/2019 CL 102 01/21/2019 BICARB 26 01/21/2019 Lab Results Component Value Date NA 135 01/21/2019 K 4.0 01/21/2019 CL 102 01/21/2019 Lab Results Component Value Date TROPONINI <15 01/17/2019 ECG 12 Lead Final Result by Interface, Lab Results In [place] Pyramis (01/17/2019 1219) Normal sinus rhythm Low voltage QRS Inferior infarct , age undetermined Cannot rule out Anteroseptal infarct , age undetermined Abnormal ECG ECG Cart Interpretation see physician note for interpretation. Confirmed by Brandy Kc ([id number]) on 01/17/2019 12:18:52 PM Columba Rodriguez CNP * Ashley Caruso CNP - 01/21/2019 12:30 PM EST [facility] Medicine Inpatient Follow-up 01/21/2019 Ashley Caruso CNP [facility] Patient: Fernando Helton Date of : 1970 (48 y.o.) PCP: Moises Patel MD ASSESSMENT/PLAN: Fernando Helton 48 y.o. male presented with complains of Active Problems: Chest pain ACS (acute coronary syndrome) ([facility]) PAD (peripheral artery disease) ([facility]) PLAN: Chest pain; intermittent, continue to monitor on telemetry; patient is status post left heart cath on 01/20 he was found to have an in-stent occlusion of the mid LAD. Cardiovascular surgery has been consulted Coronary artery disease; cardiovascular surgery has patient was scheduled for CABG on 01/24/2019, Dr. Mcneil to meet with the patient at 1230 today PAD; patient seen by vascular surgery today PA: ABIs have been done. Recommendation follow-up in the clinic as an outpatient. Continue smoking cessation, high intensity statin Plavix and aspirin. Diabetes mellitus; Dr. Fernandez consulted hemoglobin A1c is 6.5, patient diet changed to diabetic cardiac diet. No diabetic medication started at this time. Will monitor glucose AC and at bedtime Transfer order has been placed for a stepdown bed await transfer of patient SUBJECTIVE: No acute issues overnight All other systems reviewed and negative other than noted above. OBJECTIVE: Physical Examination: BP 121/81 Pulse 67 Temp 98 F (36.7 C) (Oral) Resp 14 Ht 5' 7 Wt 116.6 kg (257 lb) QcP873% BMI 40.25 kg/m General Appearance: Alert, well appearing, and in no acute distress. HEENT: Head - Normocephalic, atraumatic. Eyes - ROSELINE bilaterally and EOMI. Ears - normal external appearance, hearing intact. Nose - normal, no erythema. Throat - mucous membranes moist, pharynx without lesions. Neck: Supple, trachea midline. Cardiovascular: S1, S2 normal. No murmurs, rubs, clicks or gallops appreciated. No pedal edema. Nonpalpable DP pulse right and absent Doppler signal. Left DP and bilateral PT withtriphasic Doppler signal. Respiratory: Lungs clear to auscultation, no wheezes, rales or rhonchi heard. Abdomen: Soft, non-tender, normal bowel sounds, non-distended, no masses or organomegaly appreciated. Neurological: Grossly normal motor and sensory exam. No focal deficits. Musculoskeletal: No joint tenderness, deformity or swelling. Skin: Normal coloration and turgor. No rashes. Psych: Alert, oriented x 3. Normal mood and affect. CURRENT MEDICATIONS: aspirin 81 mg Oral Daily atorvastatin 20 mg Oral at bedtime budesonide-formoterol 2 puff Inhalation BID carvedilol 25 mg Oral BID with meals furosemide 20 mg Intravenous Q8H JUVENCIO ipratropium-albuterol 3 mL Nebulization Q6H JUVENCIO lisinopril 10 mg Oral Daily with lunch mupirocin Nasal BID nitroGLYCERIN 1 inch Topical Q6H pantoprazole 40 mg Oral Daily potassium chloride SA 10 mEq Oral Daily rOPINIRole 2 mg Oral Nightly varenicline 1 mg Oral BID Results/Medications Reviewed 01/21/19 12:31 PM: Results from last 7 days Lab Units 01/21/19 0607 01/20/19 0419 01/19/19 0759 SODIUM mmol/L 135 138 140 POTASSIUM mmol/L 4.0 3.9 4.0 CHLORIDE mmol/L 102 106 108 BUN mg/dL 19 CREATININE mg/dL 1.11 1.17 1.15 GLUCOSE mg/dL 116* 134* 121* CALCIUM mg/dL 9.1 8.3* 8.6 Results from last 7 days Lab Units 01/21/19 0607 01/20/19 1021 01/20/19 0419 01/19/19 1948 WBC K/mcL 11.28* -- 13.44* 14.77* HGB g/dL 14.2 -- 13.6 13.8 HEMOGLOBIN BG g/dL -- 14.1 -- -- HEMATOCRIT, CALCULATED % -- 43.1 -- -- HCT % 43.6 -- 41.2 41.6 PLT K/mcL 267 -- 259 258 Results from last 7 days Lab Units 01/17/19 1753 01/17/19 1450 01/17/19 1208 TROPONIN I ng/L <15 <15 <15 Results from last 7 days Lab Units 01/20/19 1000 01/20/19 0420 01/19/19 1505 01/19/19 0759 01/17/19 1208 INR 1.0 -- -- -- -- 1.0 PTT seconds -- 61* 79* 85* < > -- < > = values in this interval not displayed. Results from last 7 days Lab Units 01/20/19 1000 ALK PHOS U/L 68 BILIRUBIN TOTAL mg/dL 0.7 BILIRUBIN DIRECT mg/dL 0.1 TOTAL PROTEIN g/dL 6.3 ALTR U/L 79* AST U/L 42 CULTURES: Reviewed 12:31 PM IMAGING: Reviewed 12:31 PM * Jacinda Navarro CNP - 01/20/2019 12:25 PM EST [facility] Medicine Inpatient H&P 01/20/2019 Jacinda Navarro CNP [facility] Patient: Fernando Helton Date of : 1970 (48 y.o.) PCP: Moises Patel MD Assessment Fernando Helton 48 y.o. male with history of coronary disease with history of PTCA and 2 stents, hypertension, hyperlipidemia, COPD, obstructivesleep apnea on CPAP, IBS, questionable congestive heart failure presented to the ED complaining of chest pain. As per patient around 6:30 AM he started having a chest pain which was midsternal sharp and at times it was 8-9 out of 10 intensity and can continues and also sometimes on and off it lasted for a few hours and he presented to ED and subsequently admitted to the telemetry right now patient has a mild discomfort as per the patient. Also associated with chest pain he was going up for someshortness of breath and sweating and at the time he was lightheaded and nauseated. Also his chest pain was getting worse on activity at times as per patient and his chest pain was radiating to his left jaw as per the patient. Right now he is chest pain-free. He said that he had a similar chest pain when he had a heart attack around 3 years ago as per patient. Denies any abdominal pain, no fever or chills, no cough, denies any syncopal episode or fall. Denies any burning micturition. Denies any nausea vomiting diarrhea or constipation Active Problems: Chest pain ACS (acute coronary syndrome) ([facility]) Plan: Will admit patient to the telemetry for observation. Patient has a chest pain is suggestive of new onset angina. Right now chest pain-free. Cycle troponins and telemetry monitoring. Resume home medications which include aspirin and other antiplatelet agents. Continue home medications for coronary disease including statins and beta-blockers. Continue CPAP at night. DVT prophylaxis. We will consult cardiology as patient has a significant underlying coronary disease and multiple risk factors. SUBJECTIVE: Chief Complaint: Chest pain History of Presenting Illness: Fernando Helton is a 48 y.o. male with past medical history of coronary disease with history of PTCA and 2 stents, hypertension, hyperlipidemia, COPD, obstructive sleep apnea on CPAP, IBS, questionable congestive heart failure presented to the ED complaining of chest pain. As per patient around 6:30 AMhkandis started having a chest pain which was midsternal sharp and at times it was 8-9 out of 10 intensit y and can continues and also sometimes on and off it lasted for a few hours and he presented to ED and subsequently admitted to the telemetry right now patient has a mild discomfort as per the patient. Also associated with chest pain he was going up for some shortness of breath and sweating and at the time he was lightheaded and nauseated. Also his chest pain was getting worse on activity at times as per patient and his chest pain was radiating to his left jaw as per the patient. Right now he is chest pain-free. He said that he had a similar chest pain when he had a heart attack around 3 years ago as per patient. Denies any abdominal pain, no fever or chills, no cough, denies any syncopal episode or fall. Denies any burning micturition. Denies any nausea vomiting diarrhea or constipation. Patient said that he had a recent follow-up with cardiology Dr. Whitney and had a MRI of the heart and other cardiac work-up done including echo as per patient. Denies any recent cardiac cath or any recent cardiac stress test. 01-18-2019 we are following with cardiology. At this point the plan is to keep the patient here overthe weekend keep him on cardiac monitoring and possibly do a catheterization. Continue on the heparin drip Patient is stable and having no chest pain or shortness of breath at the time of my exam. 01-19-2019 patient is stable he does state that he has very mild chest pain at times intermittent does not cause any other symptoms. We will continue on a heparin drip with cardiology following. He islikely can have a heart cath tomorrow morning. 01-20-2019 patient has returned from his cardiac catheterization. The nursing staff that brought himback in for me that he would be requiring open heart surgery. I put in for an inpatient transfer . . We will continue to follow with cardiovascular team if needed. Patient is currently recovering from the catheterization and is stable. Review of Systems: All systems are reviewed and pertinent positives are mentioned in the history of present and past illness otherwise rest of the systems are reviewed and are negative. 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 Bev Tolentino Metabolic syndrome Mood disorder ([facility]) Nasal fracture Obstructive sleep apnea noncompliant with CPAP Orthostatic dizziness with intermittent syncope Pericarditis 02/25/07; 09/23/17 Pneumomediastinum (HCC) 01/12/2007 secondary to severe coughing spell & ruptured alveoli Rotator cuff tear, right 1997 s/p repair SLAP tear of shoulder 2011 left - s/p surgery to place [address] elevation myocardial infarction (STEMI) of anterolateral wall (HCC) 05/09/2012 anterolateral STEMI involving left anterior descending coronary artery (HCC) 09/25/2014 anterior Superficial thrombophlebitis of right upper extremity 12/26/2006 Past Surgical History: Procedure Laterality Date APPENDECTOMY 1998 BONE MARROW BIOPSY W/ ASPIRATION Left 11/27/2016 L posterior iliac crest; Dr. Bev Tolentino CARDIAC CATHETERIZATION 09/2014 Segment LV dysf., mild to moderate LV systolic impairment, moderate LV diastolic dysf.; single vesselCAD CARDIAC CATHETERIZATION 04/2012 Severe LV systolic dysf., EF 20%; elevated LVEDP; segmental contraction abnormality of the LV; single vessel CAD with acute thrombotic occlusion of left anterior descending. CARDIAC CATHETERIZATION Left 09/28/2015 Dr. 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 Normal LV end-diastolic pressure. COLONOSCOPY 05/27/2015 CORONARY STENT PLACEMENT 2012 Drug eluted Alpine stent in the left anterior descending CORONARY STENT PLACEMENT 2014 Subacute stent thrombosis which appears late. This may be in the settin g of areas of restenosis within the stent. Alpine XIENCE drug eluted stent ROTATOR CUFF REPAIR Right 1997 SHOULDER ARTHROSCOPY W/ SUPERIOR LABRAL ANTERIOR POSTERIOR REPAIR Left 11/21/12 SHOULDER ARTHROSCOPY W/ SUPERIOR LABRAL ANTERIOR POSTERIOR REPAIR Left 11/22/[address] 6 anchors SINUS SURGERY 06/25/[address] Gaitan STENT PLACEMENT 05/09/12 and intraaortic balloon pump UPPER GASTROINTESTINAL ENDOSCOPY 2016 Family History Problem Relation Age of Onset Heart attack Father Heart disease Father s/p cabg x 4 in his 40s Coronary artery disease Father Hypertension Father Hyperlipidemia Father Heart disease Mother Stroke Mother 64 Hyperlipidemia Mother Coronary artery disease Other Cancer Paternal Uncle unknown cancer Hypertension Sister Diabetes Brother Heart disease Brother s/p PCI Melanoma Brother Social History Tobacco Use Smoking Status Former Smoker Packs/day: 1.00 Years: 35.00 Pack years: 35.00 Last attempt to quit: 05/12/2016 Years since quittin.6 Smokeless Tobacco Never Used Tobacco Comment Quit Social History Substance and Sexual Activity Alcohol Use Yes Alcohol/week: 0.0 standard drinks Comment: socially Family and Social History reviewed as mentioned above. Allergies: Imdur [isosorbide mononitrate] Home Medications: Outpatient Medications as of 01/17/2019 Medication Sig aspirin 81 MG EC tablet Take 81 mg by mouth daily. atorvastatin (LIPITOR) 20 MG tablet Take 1 (one) tablet (20 mg total) by mouth daily . budesonide-formoterol (Symbicort) 160-4.5 mcg/actuation inhaler Inhale 2 puffs 2 (two) times a day . carvedilol (COREG) 25 MG tablet Take 1 (one) tablet (25 mg total) by mouth 2 (two) times a day withmeals . furosemide (LASIX) 40 MG tablet Take 1 (one) tablet (40 mg total) by mouth daily . ipratropium-albuterol (DUO-NEB) 0.5-2.5 mg/3 ml nebulizer Take 3 mL by nebulization every 6 (six) hours . omeprazole (PRILOSEC) 40 MG capsule Take 40 mg by mouth daily prasugrel (EFFIENT) 10 mg tablet Take 1 (one) tablet (10 mg total) by mouth daily . rOPINIRole (REQUIP) 2 MG tablet Take 2 mg by mouth nightly. varenicline (CHANTIX) 1 mg tablet Take 1 mg by mouth 2 (two) times a day . enalapril (VASOTEC) 5 MG tablet TAKE 1 TABLET(5 MG) BY MOUTH TWICE DAILY hydroCHLOROthiazide (HYDRODIURIL) 25 MG tablet Take 1 (one) tablet (25 mg total) by mouth daily . potassium chloride SA (K-DUR,KLOR-CON) 10 MEQ tablet TAKE 1 TABLET(10 MEQ) BY MOUTH TWICE DAILY OBJECTIVE: Physical Examination: BP 119/78 Pulse 84 Temp 97.6 F (36.4 C) (Oral) Resp 14 Ht 5' 7 Wt 116.6 kg (257 lb) SpO2 92% BMI 40.25 kg/m General Appearance: Slightly lethargic well appearing, and in no acute distress. Pleasant gentleman HEENT: Head - Normocephalic, atraumatic. Eyes - ROSELINE bilaterally and EOMI. Ears - normal external appearance, hearing intact. Nose - normal, no erythema. No nasal discharge Throat - mucous membranes moist, pharynx without lesions. Neck: Supple, trachea midline. No neck stiffness Cardiovascular: S1, S2 normal. No murmurs, rubs, clicks or gallops appreciated. Trace pedal edema. Regular Respiratory: Lungs clear to auscultation, no wheezes, rales or rhonchi heard. Abdomen: Soft, non-tender, normal bowel sounds, non-distended, no masses or organomegaly appreciated. Neurological: Grossly normal motor and sensory exam. No focal deficits. Musculoskeletal: No joint tenderness, deformity or swelling. Trace pedal edema Skin: Normal coloration and turgor. No rashes. Psych: Alert, oriented x 3. Normal mood and affect. Laboratory and Additional Data Reviewed: Results/Medications Reviewed 01/20/19 12:25 PM: Results from last 7 days Lab Units 01/20/19 0419 01/19/19 0759 01/17/19 1208 SODIUM mmol/L 138 140 138 POTASSIUM mmol/L 3.9 4.0 4.0 CHLORIDE mmol/L 106 108 109* BUN mg/dL CREATININE mg/dL 1.17 1.15 1.11 GLUCOSE mg/dL 134* 121* 125* CALCIUM mg/dL 8.3* 8.6 8.1* Results from last 7 days Lab Units 01/20/19 1021 01/20/19 0419 01/19/19 1948 01/19/19 0759 WBC K/mcL -- 13.44* 14.77* 13.22* HGB g/dL -- 13.6 13.8 13.7 HEMOGLOBIN BG g/dL 14.1 -- -- -- HEMATOCRIT, CALCULATED % 43.1 -- -- -- HCT % -- 41.2 41.6 41.6 PLT K/mcL -- 259 258 256 Results from last 7 days Lab Units 01/17/19 1753 01/17/19 1450 01/17/19 1208 TROPONIN I ng/L <15 <15 <15 Results from last 7 days Lab Units 01/20/19 1000 01/20/19 0420 01/19/19 1505 01/19/19 0759 01/17/19 1208 INR 1.0 -- -- -- -- 1.0 PTT seconds -- 61* 79* 85* < > -- < > = values in this interval not displayed. Results from last 7 days Lab Units 01/20/19 1000 ALK PHOS U/L 68 BILIRUBIN TOTAL mg/dL 0.7 BILIRUBIN DIRECT mg/dL 0.1 TOTAL PROTEIN g/dL 6.3 ALTR U/L 79* AST U/L 42 EKG reviewed and around similar changes as compared to previous EKG. CULTURES: Reviewed 12:25 PM IMAGING: Reviewed 12:25 PM * Jacinda Navarro CNP - 01/19/2019 10:57 AM EST [facility] Inpatient H&P 01/19/2019 Jacinda Navarro CNP [facility] Patient: Fernando Helton Date of : 1970 (48 y.o.) PCP: Moises Patel MD Assessment Fernandoyolette Helton 48 y.o. male with history of coronary disease with history of PTCA and 2 stents, hypertension, hyperlipidemia, COPD, obstructivesleep apnea on CPAP, IBS, questionable congestive heart failure presented to the ED complaining of chest pain. As per patient around 6:30 AM he started having a chest pain which was midsternal sharp and at times it was 8-9 out of 10 intensity and can continues and also sometimes on and off it lasted for a few hours and he presented to ED and subsequently admitted to the telemetry right now patient has a mild discomfort as per the patient. Also associated with chest pain he was going up for someshortness of breath and sweating and at the time he was lightheaded and nauseated. Also his chest pain was getting worse on activity at times as per patient and his chest pain was radiating to his left jaw as per the patient. Right now he is chest pain-free. He said that he had a similar chest pain when he had a heart attack around 3 years ago as per patient. Denies any abdominal pain, no fever or chills, no cough, denies any syncopal episode or fall. Denies any burning micturition. Denies any nausea vomiting diarrhea or constipation Active Problems: Chest pain Plan: Will admit patient to the telemetry for observation. Patient has a chest pain is suggestive of new onset angina. Right now chest pain-free. Cycle troponins and telemetry monitoring. Resume home medications which include aspirin and other antiplatelet agents. Continue home medications for coronary disease including statins and beta-blockers. Continue CPAP at night. DVT prophylaxis. We will consult cardiology as patient has a significant underlying coronary disease and multiple risk factors. SUBJECTIVE: Chief Complaint: Chest pain History of Presenting Illness: Fernando Helton is a 48 y.o. male with past medical history of coronary disease with history of PTCA and 2 stents, hypertension, hyperlipidemia, COPD, obstructive sleep apnea on CPAP, IBS, questionable congestive heart failure presented to the ED complaining of chest pain. As per patient around 6:30 AMhe started having a chest pain which was midsternal sharp and at times it was 8-9 out of 10 intensit y and can continues and also sometimes on and off it lasted for a few hours and he presented to ED and subsequently admitted to the telemetry right now patient has a mild discomfort as per the patient. Also associated with chest pain he was going up for some shortness of breath and sweating and at the time he was lightheaded and nauseated. Also his chest pain was getting worse on activity at times as per patient and his chest pain was radiating to his left jaw as per the patient. Right now he is chest pain-free. He said that he had a similar chest pain when he had a heart attack around 3 years ago as per patient. Denies any abdominal pain, no fever or chills, no cough, denies any syncopal episode or fall. Denies any burning micturition. Denies any nausea vomiting diarrhea or constipation. Patient said that he had a recent follow-up with cardiology Dr. Whitney and had a MRI of the heart and other cardiac work-up done including echo as per patient. Denies any recent cardiac cath or any recent cardiac stress test. 01-18-2019 we are following with cardiology. At this point the plan is to keep the patient here overthe weekend keep him on cardiac monitoring and possibly do a catheterization. Continue on the heparin drip Patient is stable and having no chest pain or shortness of breath at the time of my exam. 01-19-2019 patient is stable he does state that he has very mild chest pain at times intermittent does not cause any other symptoms. We will continue on a heparin drip with cardiology following. He islikely can have a heart cath tomorrow morning. Review of Systems: All systems are reviewed and pertinent positives are mentioned in the history of present and past illness otherwise rest of the systems are reviewed and are negative. History: Past Medical History: Diagnosis Date Ankle swelling Anxiety Appendicitis 1998 s/p appendectomy 1998 CAD (coronary artery disease) CAD s/p [facility] with 1 stent in left main 07/2012, replaced 09/2014 Chest pain Circulation problem right leg COPD (chronic obstructive pulmonary disease) ([facility]) Fatigue GERD (gastroesophageal reflux disease) Headache HLD (hyperlipidemia) HTN (hypertension) Metabolic syndrome Mood disorder ([facility]) Obstructive sleep apnea Pneumomediastinum ([facility]) 01/2007 Rotator cuff tear, right 1997 s/p repair SLAP tear of shoulder 2011 left - s/p surgery to place [address] elevation myocardial infarction (STEMI) of anterolateral wall ([facility]) 05/09/12 Past Surgical History: Procedure Laterality Date APPENDECTOMY 1998 CARDIAC CATHETERIZATION 09/2014 Segment LV dysf., mild to moderate LV systolic impairment, moderate LV diastolic dysf.; single vesselCAD CARDIAC CATHETERIZATION 04/2012 Severe LV systolic dysf., EF 20%; elevated LVEDP; segmental contraction abnormality of the LV; single vessel CAD with acute thrombotic occlusion of left anterior descending. CARDIAC CATHETERIZATION Left 09/28/2015 Dr. 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 Normal LV end-diastolic pressure. COLONOSCOPY 05/27/2015 CORONARY STENT PLACEMENT 2012 Drug eluted Alpine stent in the left anterior descending CORONARY STENT PLACEMENT 2014 Subacute stent thrombosis which appears late. This may be in the settin g of areas of restenosis within the stent. Alpine XIENCE drug eluted stent OTHER SURGICAL HISTORY 05/27/2015 Endoscopy ROTATOR CUFF REPAIR Right 1997 SHOULDER ARTHROSCOPY W/ SUPERIOR LABRAL ANTERIOR POSTERIOR REPAIR Left 11/21/12 SHOULDER ARTHROSCOPY W/ SUPERIOR LABRAL ANTERIOR POSTERIOR REPAIR Left [address] 6 anchors SHOULDER SURGERY Left 05/08/2013 SINUS SURGERY 2008 or 2010 STENT PLACEMENT 05/09/12 and intraaortic balloon pump Family History Problem Relation Age of Onset Heart attack Father Other Father high cholesterol Heart disease Father Other Mother high cholesterol Heart disease Mother Stroke Mother 64 Coronary artery disease Other Cancer Paternal Uncle unknown cancer Social History Tobacco Use Smoking Status Former Smoker Packs/day: 1.00 Last attempt to quit: 05/12/2016 Years since quittin.6 Smokeless Tobacco Never Used Tobacco Comment 20+ years. Quit May 12 Social History Substance and Sexual Activity Alcohol Use Yes Alcohol/week: 0.0 standard drinks Comment: socially Family and Social History reviewed as mentioned above. Allergies: Imdur [isosorbide mononitrate] Home Medications: Outpatient Medications as of 01/17/2019 Medication Sig aspirin 81 MG EC tablet Take 81 mg by mouth daily. atorvastatin (LIPITOR) 20 MG tablet Take 1 (one) tablet (20 mg total) by mouth daily . budesonide-formoterol (Symbicort) 160-4.5 mcg/actuation inhaler Inhale 2 puffs 2 (two) times a day . carvedilol (COREG) 25 MG tablet Take 1 (one) tablet (25 mg total) by mouth 2 (two) times a day withmeals . furosemide (LASIX) 40 MG tablet Take 1 (one) tablet (40 mg total) by mouth daily . ipratropium-albuterol (DUO-NEB) 0.5-2.5 mg/3 ml nebulizer Take 3 mL by nebulization every 6 (six) hours . omeprazole (PRILOSEC) 40 MG capsule Take 40 mg by mouth daily prasugrel (EFFIENT) 10 mg tablet Take 1 (one) tablet (10 mg total) by mouth daily . rOPINIRole (REQUIP) 2 MG tablet Take 2 mg by mouth nightly. varenicline (CHANTIX) 1 mg tablet Take 1 mg by mouth 2 (two) times a day . enalapril (VASOTEC) 5 MG tablet TAKE 1 TABLET(5 MG) BY MOUTH TWICE DAILY hydroCHLOROthiazide (HYDRODIURIL) 25 MG tablet Take 1 (one) tablet (25 mg total) by mouth daily . potassium chloride SA (K-DUR,KLOR-CON) 10 MEQ tablet TAKE 1 TABLET(10 MEQ) BY MOUTH TWICE DAILY OBJECTIVE: Physical Examination: BP 122/80 Pulse 72 Temp 98.2 F (36.8 C) (Oral) Resp 18 Ht 5' 7 Wt 116.6 kg (257 lb) SpO2 93% BMI 40.25 kg/m General Appearance: Alert, well appearing, and in no acute distress. Pleasant gentleman HEENT: Head - Normocephalic, atraumatic. Eyes - ROSELINE bilaterally and EOMI. Ears - normal external appearance, hearing intact. Nose - normal, no erythema. No nasal discharge Throat - mucous membranes moist, pharynx without lesions. Neck: Supple, trachea midline. No neck stiffness Cardiovascular: S1, S2 normal. No murmurs, rubs, clicks or gallops appreciated. Trace pedal edema. Regular Respiratory: Lungs clear to auscultation, no wheezes, rales or rhonchi heard. Abdomen: Soft, non-tender, normal bowel sounds, non-distended, no masses or organomegaly appreciated. Neurological: Grossly normal motor and sensory exam. No focal deficits. Musculoskeletal: No joint tenderness, deformity or swelling. Trace pedal edema Skin: Normal coloration and turgor. No rashes. Psych: Alert, oriented x 3. Normal mood and affect. Laboratory and Additional Data Reviewed: Results/Medications Reviewed 01/19/19 10:57 AM: Results from last 7 days Lab Units 01/19/19 0759 01/17/19 1208 SODIUM mmol/L 140 138 POTASSIUM mmol/L 4.0 4.0 CHLORIDE mmol/L 108 109* BUN mg/dL 19 22 CREATININE mg/dL 1.15 1.11 GLUCOSE mg/dL 121* 125* CALCIUM mg/dL 8.6 8.1* Results from last 7 days Lab Units 01/19/19 0759 01/17/19201101/17/19 1208 WBC K/mcL 13.22* 11.26* 12.08* HGB g/dL 13.7 12.8* 13.6 HCT % 41.6 38.7* 41.5 PLT K/mcL 256 227 269 Results from last 7 days Lab Units 01/17/19 1753 01/17/19 1450 01/17/19 1208 TROPONIN I ng/L <15 <15 <15 Results from last 7 days Lab Units 01/19/19 0759 01/19/19 0102 01/18/19 1802 01/17/19 1208 INR -- -- -- -- 1.0 PTT seconds 85* 89* 65* < > -- < > = values in this interval not displayed. Results from last 7 days Lab Units 01/17/19 1208 ALK PHOS U/L 75 BILIRUBIN TOTAL mg/dL 0.9 BILIRUBIN DIRECT mg/dL 0.2 TOTAL PROTEIN g/dL 6.2 ALTR U/L 67* AST U/L 28 EKG reviewed and around similar changes as compared to previous EKG. CULTURES: Reviewed 10:57 AM IMAGING: Reviewed 10:57 AM * Jacinda Navarro CNP - 01/18/2019 10:36 AM EST [facility] Medicine Inpatient H&P 01/18/2019 Jacinda Navarro CNP [facility] Patient: Fernando Helton Date of : 1970 (48 y.o.) PCP: Moises Patel MD Assessment Fernando Helton 48 y.o. male with history of coronary disease with history of PTCA and 2 stents, hypertension, hyperlipidemia, COPD, obstructivesleep apnea on CPAP, IBS, questionable congestive heart failure presented to the ED complaining of chest pain. As per patient around 6:30 AM he started having a chest pain which was midsternal sharp and at times it was 8-9 out of 10 intensity and can continues and also sometimes on and off it lasted for a few hours and he presented to ED and subsequently admitted to the telemetry right now patient has a mild discomfort as per the patient. Also associated with chest pain he was going up for someshortness of breath and sweating and at the time he was lightheaded and nauseated. Also his chest pain was getting worse on activity at times as per patient and his chest pain was radiating to his left jaw as per the patient. Right now he is chest pain-free. He said that he had a similar chest pain when he had a heart attack around 3 years ago as per patient. Denies any abdominal pain, no fever or chills, no cough, denies any syncopal episode or fall. Denies any burning micturition. Denies any nausea vomiting diarrhea or constipation Active Problems: Chest pain Plan: Will admit patient to the telemetry for observation. Patient has a chest pain is suggestive of new onset angina. Right now chest pain-free. Cycle troponins and telemetry monitoring. Resume home medications which include aspirin and other antiplatelet agents. Continue home medications for coronary disease including statins and beta-blockers. Continue CPAP at night. DVT prophylaxis. We will consult cardiology as patient has a significant underlying coronary disease and multiple risk factors. SUBJECTIVE: Chief Complaint: Chest pain History of Presenting Illness: Fernando Helton is a 48 y.o. male with past medical history of coronary disease with history of PTCA and 2 stents, hypertension, hyperlipidemia, COPD, obstructive sleep apnea on CPAP, IBS, questionable congestive heart failure presented to the ED complaining of chest pain. As per patient around 6:30 AMhe started having a chest pain which was midsternal sharp and at times it was 8-9 out of 10 intensit y and can continues and also sometimes on and off it lasted for a few hours and he presented to ED and subsequently admitted to the telemetry right now patient has a mild discomfort as per the patient. Also associated with chest pain he was going up for some shortness of breath and sweating and at the time he was lightheaded and nauseated. Also his chest pain was getting worse on activity at times as per patient and his chest pain was radiating to his left jaw as per the patient. Right now he is chest pain-free. He said that he had a similar chest pain when he had a heart attack around 3 years ago as per patient. Denies any abdominal pain, no fever or chills, no cough, denies any syncopal episode or fall. Denies any burning micturition. Denies any nausea vomiting diarrhea or constipation. Patient said that he had a recent follow-up with cardiology Dr. Whitney and had a MRI of the heart and other cardiac work-up done including echo as per patient. Denies any recent cardiac cath or any recent cardiac stress test. 01-18-2019 we are following with cardiology. At this point the plan is to keep the patient here overthe weekend keep him on cardiac monitoring and possibly do a catheterization. Continue on the heparin drip Patient is stable and having no chest pain or shortness of breath at the time of my exam. Review of Systems: All systems are reviewed and pertinent positives are mentioned in the history of present and past illness otherwise rest of the systems are reviewed and are negative. History: Past Medical History: Diagnosis Date Ankle swelling Anxiety Appendicitis 1998 s/p appendectomy 1998 CAD (coronary artery disease) CAD s/p C with 1 stent in left main 07/2012, replaced 09/2014 Chest pain Circulation problem right leg COPD (chronic obstructive pulmonary disease) ([facility]) Fatigue GERD (gastroesophageal reflux disease) Headache HLD (hyperlipidemia) HTN (hypertension) Metabolic syndrome Mood disorder ([facility]) Obstructive sleep apnea Pneumomediastinum ([facility]) 01/2007 Rotator cuff tear, right 1997 s/p repair SLAP tear of shoulder 2011 left - s/p surgery to place [address] elevation myocardial infarction (STEMI) of anterolateral wall ([facility]) 05/09/12 Past Surgical History: Procedure Laterality Date APPENDECTOMY 1998 CARDIAC CATHETERIZATION 09/2014 Segment LV dysf., mild to moderate LV systolic impairment, moderate LV diastolic dysf.; single vesselCAD CARDIAC CATHETERIZATION 04/2012 Severe LV systolic dysf., EF 20%; elevated LVEDP; segmental contraction abnormality of the LV; single vessel CAD with acute thrombotic occlusion of left anterior descending. CARDIAC CATHETERIZATION Left 09/28/2015 Dr. 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 Normal LV end-diastolic pressure. COLONOSCOPY 05/27/2015 CORONARY STENT PLACEMENT 2012 Drug eluted Alpine stent in the left anterior descending CORONARY STENT PLACEMENT 2014 Subacute stent thrombosis which appears late. This may be in the settin g of areas of restenosis within the stent. Alpine XIENCE drug eluted stent OTHER SURGICAL HISTORY 05/27/2015 Endoscopy ROTATOR CUFF REPAIR Right 1997 SHOULDER ARTHROSCOPY W/ SUPERIOR LABRAL ANTERIOR POSTERIOR REPAIR Left 11/21/12 SHOULDER ARTHROSCOPY W/ SUPERIOR LABRAL ANTERIOR POSTERIOR REPAIR Left [address] 6 anchors SHOULDER SURGERY Left 05/08/2013 SINUS SURGERY 2008 or 2009 STENT PLACEMENT 05/09/12 and intraaortic balloon pump Family History Problem Relation Age of Onset Heart attack Father Other Father high cholesterol Heart disease Father Other Mother high cholesterol Heart disease Mother Stroke Mother 64 Coronary artery disease Other Cancer Paternal Uncle unknown cancer Social History Tobacco Use Smoking Status Former Smoker Packs/day: 1.00 Last attempt to quit: 05/12/2016 Years since quittin.6 Smokeless Tobacco Never Used Tobacco Comment 20+ years. Quit May 12 Social History Substance and Sexual Activity Alcohol Use Yes Alcohol/week: 0.0 standard drinks Comment: socially Family and Social History reviewed as mentioned above. Allergies: Imdur [isosorbide mononitrate] Home Medications: Outpatient Medications as of 01/17/2019 Medication Sig aspirin 81 MG EC tablet Take 81 mg by mouth daily. atorvastatin (LIPITOR) 20 MG tablet Take 1 (one) tablet (20 mg total) by mouth daily . budesonide-formoterol (Symbicort) 160-4.5 mcg/actuation inhaler Inhale 2 puffs 2 (two) times a day . carvedilol (COREG) 25 MG tablet Take 1 (one) tablet (25 mg total) by mouth 2 (two) times a day withmeals . furosemide (LASIX) 40 MG tablet Take 1 (one) tablet (40 mg total) by mouth daily . ipratropium-albuterol (DUO-NEB) 0.5-2.5 mg/3 ml nebulizer Take 3 mL by nebulization every 6 (six) hours . omeprazole (PRILOSEC) 40 MG capsule Take 40 mg by mouth daily prasugrel (EFFIENT) 10 mg tablet Take 1 (one) tablet (10 mg total) by mouth daily . rOPINIRole (REQUIP) 2 MG tablet Take 2 mg by mouth nightly. varenicline (CHANTIX) 1 mg tablet Take 1 mg by mouth 2 (two) times a day . enalapril (VASOTEC) 5 MG tablet TAKE 1 TABLET(5 MG) BY MOUTH TWICE DAILY hydroCHLOROthiazide (HYDRODIURIL) 25 MG tablet Take 1 (one) tablet (25 mg total) by mouth daily . potassium chloride SA (K-DUR,KLOR-CON) 10 MEQ tablet TAKE 1 TABLET(10 MEQ) BY MOUTH TWICE DAILY OBJECTIVE: Physical Examination: BP 121/75 Pulse 79 Temp 97.8 F (36.6 C) (Oral) Resp 16 Ht 5' 7 Wt 116.6 kg (257 lb) SpO2 97% BMI 40.25 kg/m General Appearance: Alert, well appearing, and in no acute distress. Pleasant gentleman HEENT: Head - Normocephalic, atraumatic. Eyes - ROSELINE bilaterally and EOMI. Ears - normal external appearance, hearing intact. Nose - normal, no erythema. No nasal discharge Throat - mucous membranes moist, pharynx without lesions. Neck: Supple, trachea midline. No neck stiffness Cardiovascular: S1, S2 normal. No murmurs, rubs, clicks or gallops appreciated. Trace pedal edema. Regular Respiratory: Lungs clear to auscultation, no wheezes, rales or rhonchi heard. Abdomen: Soft, non-tender, normal bowel sounds, non-distended, no masses or organomegaly appreciated. Neurological: Grossly normal motor and sensory exam. No focal deficits. Musculoskeletal: No joint tenderness, deformity or swelling. Trace pedal edema Skin: Normal coloration and turgor. No rashes. Psych: Alert, oriented x 3. Normal mood and affect. Laboratory and Additional Data Reviewed: Results/Medications Reviewed 01/18/19 10:37 AM: Results from last 7 days Lab Units 01/17/19 1208 SODIUM mmol/L 138 POTASSIUM mmol/L 4.0 CHLORIDE mmol/L 109* BUN mg/dL 22 CREATININE mg/dL 1.11 GLUCOSE mg/dL 125* CALCIUM mg/dL 8.1* Results from last 7 days Lab Units 01/17/19201101/17/19 1208 WBC K/mcL 11.26* 12.08* HGB g/dL 12.8* 13.6 HCT % 38.7* 41.5 PLT K/mcL 227 269 Results from last 7 days Lab Units 01/17/19 1753 01/17/19 1450 01/17/19 1208 TROPONIN I ng/L <15 <15 <15 Results from last 7 days Lab Units 01/18/19 0336 01/17/19 1208 INR -- 1.0 PTT seconds 31 -- Results from last 7 days Lab Units 01/17/19 1208 ALK PHOS U/L 75 BILIRUBIN TOTAL mg/dL 0.9 BILIRUBIN DIRECT mg/dL 0.2 TOTAL PROTEIN g/dL 6.2 ALTR U/L 67* AST U/L 28 EKG reviewed and around similar changes as compared to previous EKG. CULTURES: Reviewed 10:37 AM IMAGING: Reviewed 10:37 AM documented in this encounter* Maykel Whitney MD - 12/26/2018 4:00 PM EST General Cardiology Clinic Follow-up Heart & Vascular [facility] 12/26/2018 Maykel Whitney MD [address] [place] [address] Medical Office [facility] [address] Patient: Fernando Helton Date of : 1970 (48 y.o.) PCP: Moises Patel MD Assessment & Plan Heart failure ([facility]) I believe he has acute on chronic diastolic heart failure. He has more edema today and his weight is up. He has been on 40 Lasix daily. He states he is not eating or drinking more than usual, he remains tobacco free which I applauded him. I am going to give him hydrochlorothiazide 25 mg to take 1/2-hour before he takes his Lasix for 3 consecutive days to try to diurese him. We will check a basic metabolic profile in a week. I have advanced his carvedilol to 25 twice a day. He is a little tachycardic today. We will check a NT proBNP level, his lungs did not sound significantly congested today.Finally he has been unable to do CPAP he has had some damage to his home symptom, he is going to try to get this replaced, I have emphasized to him and his that sleep apnea treatment will be critical to the success of treating his diastolic heart failure. I reviewed his echo and recent cardiacMRI with him, I do not think we need any additional diagnostic studies otherwise today. He will continue to follow in our heart failure clinic and we will periodically see him in the clinic otherwise. CAD (coronary artery disease) He has quit smoking. Symptoms seem to be stable from an anginal standpoint. I reviewed with him hiscardiac MRI, I do not think we need any additional diagnostic assessments today. Follow-up: Return in about 2 months (around 02/25/2019). Subjective History of Present Illness: Fernando Helton is a 48 y.o. male seen today for follow-up. This is a 48-year-old gentleman. He has a history of coronary artery disease. He has undergone previous stent intervention. His last catheterization in September 2015 showed the right coronary artery tohave 10 to 25% luminal irregularities. In the posterior circulation there is 40% narrowing. Stent in the left anterior descending was patent. There is a small diagonal this jailed arising from within the stented segment that has an ostial narrowing. Medical therapy was recommended. Echo in November 2018 showed an EF of 40 to 45%. A small left ventricular apical thrombus could not be excluded. He did complete a cardiac MRI which showed no obvious left ventricular thrombus. Ejection fraction 52%. He did have a large scar demonstrated. EKG done in September 2018 showed anteroseptal infarct age undetermined, normal sinus rhythm. He is followed in our heart failure clinic and was seen last there in November 2018. He had not been evaluated for some time and had noted weight gain, his weight was up about 13 pounds. It would appear he had poor dietary habits. He did quit smoking noted at the time ofthat visit. He was not using his CPAP for sleep apnea. The patient was in the emergency room in September with shortness of breath wheezing and chest pain, described as chest wall pain. Cardiac enzymes were negative. Objective ECG 12 Lead Final Result by Nathanael Valencia MD (09/27/2018 2200) Echocardiogram complete w contrast Final Result by Magda Durán MD (12/10/2018 7465) Review of Systems: Review of Systems Constitution: Negative for fever. Cardiovascular: Positive for dyspnea on exertion and leg swelling. Negative for chest pain, claudication, cyanosis, irregular heartbeat, near-syncope, orthopnea, palpitations, paroxysmal nocturnal dyspnea and syncope. Respiratory: Positive for shortness of breath. Gastrointestinal: Negative for hematemesis and hematochezia. Neurological: Negative for focal weakness, paresthesias and weakness. Psychiatric/Behavioral: Negative for altered mental status. HOME Medications: Current Outpatient Medications on File Prior to Visit Medication Sig ALBUTEROL SULFATE (VENTOLIN HFA INHL) Inhale as needed aspirin 81 MG EC tablet Take 81 mg by mouth daily. atorvastatin (LIPITOR) 20 MG tablet Take 1 (one) tablet (20 mg total) by mouth daily . BUDESONIDE/FORMOTEROL FUMARATE (SYMBICORT INHL) Inhale 2 (two) times a day enalapril (VASOTEC) 5 MG tablet TAKE 1 TABLET(5 MG) BY MOUTH TWICE DAILY furosemide (LASIX) 40 MG tablet TAKE 1 TABLET(40 MG) BY MOUTH DAILY omeprazole (PRILOSEC) 40 MG capsule Take 40 mg by mouth daily potassium chloride SA (K-DUR,KLOR-CON) 10 MEQ tablet TAKE 1 TABLET(10 MEQ) BY MOUTH TWICE DAILY prasugrel (EFFIENT) 10 mg tablet Take 1 (one) tablet (10 mg total) by mouth daily . rOPINIRole (REQUIP) 2 MG tablet Take 2 mg by mouth nightly. varenicline (CHANTIX KYLAH) 0.5 mg (11)- 1 mg (42) tablet Take 0.5mg daily for 3 days (days 1-3), then 0.5mg two times a day for 4 days (days 4-7), then 1mg two times a day [DISCONTINUED] carvedilol (COREG) 12.5 MG tablet Take 1 (one) tablet (12.5 mg total) by mouth 2 (two) times a day with meals . No current facility-administered medications on file prior to visit. Vital Signs: BP 125/87 Pulse 98 Ht 5' 6 Wt 113.9 kg (251 lb) SpO2 97% BMI 40.51 kg/m Physical Exam Constitutional: He is oriented to person, place, and time. He appears well- developed and well-nourished. Eyes: No scleral icterus. Neck: Neck supple. No thyromegaly present. Cardiovascular: Normal rate, regular rhythm and normal heart sounds. Exam reveals no gallop and no friction rub. No murmur heard. Pulmonary/Chest: Effort normal and breath sounds normal. He has no wheezes. He has no rales. Abdominal: Soft. He exhibits no mass. There is no rebound and no guarding. Musculoskeletal: General: Edema (2 plus) present. Neurological: He is alert and oriented to person, place, and time. Skin: Skin is warm and dry. Psychiatric: He has a normal mood and affect. Vitals reviewed. documented in this encounter* Rubi Pratt RN - 10/17/2019 1:56 PM EDT Spoke with patient who was concerned that they have not received event monitor in the mail yet. Patient registered for event monitor yesterday, informed to put monitor on when it arrives. states she was told in the hospital that it would be over-nighted and she should get it today. Informed her that event monitors are not usually sent in overnight mail it will be arriving by UPS inthe next couple of days. documented in this encounter* Mustapha Hernandez RN - 09/23/2019 5:32 PM EDT Stroke education was completed for this patient during his discharge. The patient was with his wifeand was told about his TIA and the risk factors of obesity, previous MIs, and high cholesterol. He understood the education and had no questions regarding the information given. * Tanner Palma MD - 09/23/2019 2:20 PM EDT Neurology consult: Full note pending. Clinical history is highly suspicious of posterior circulation TIA. Patient has several risk factors for stroke. Strong family history of cardiovascular and cerebrovascular comorbidities. Posterior circulation TIA Etiology: Hypertensive, small vessel Testing: MRI: Negative for strokes. CT angiogram: No major vessel stenosis. No major evidence of atherosclerotic changes at this time either. Echocardiogram from 2018 shows normal ejection fraction. Cardiac Rhythm: NO Afib noted to date Anti-thrombotic: Indefinite ASA 81 + Plavix 75 mg Anti-lipid Agent: Lipitor (atorvastatin) 40 mg BP Goal: Less than 130/80; AVOID hypotension; Attending Service to manage Glucose Goal: Normoglycemia/ A1c less than 6.5. Attending Service to manage. Tobacco: Counseled to not smoke/use tobacco. Attending Service to manage. Therapy (Assessed for Rehab): Yes, already assessed DVT Prophylaxis: Okay to DC Eventual Outpatient Follow-up: In Stroke [facility] in 4 weeks Had a long discussion regarding these risk factors and gave appropriate education to the patient regarding changing lifestyle which would include weight loss, aerobic exercise plan and aggressive andstrict home blood pressure monitoring with target systolic blood pressure less than 130 mmHg. TANNER PALMA MSc, [email or web address] Neurologist & Movement Disorder Specialist [facility] (Adj Asst: Professor, [employer] Dept of Neurology) ELLIOT Peterson [id number], [facility] [id number] [facility] Fax: [phone] documented in this encounter Summary Purpose Family History No Family History Records FoundNo Family History Records FoundNo Family History Records FoundNo Family History Records FoundNo Family History Records FoundNo Family History Records FoundNo Family History Records FoundNo Family History Records FoundNo Family History Records Found Advance Directives No Advanced Directives Records FoundDocuments on File Type Date Recorded Patient Conveyor Installer Expl anation Advance Directives and Livin g Will 09/27/2018 7:30 PM Documents on File Type Date Recorded Patient Conveyor Installer Expl anation Advance Directives and Livin g Will 12/18/2018 10:26 AM Documents on File Type Date Recorded Patient Conveyor Installer Expl anation Advance Directives and Livin g Will 01/17/2019 12:26 PM Latest Code Status on File Code Status Date Activated Date Inactivated Comments Full Code 01/20/2019 9:05 AM Full Code - Unverified 01/17/2019 4:34 PM 01/20/2019 9:0 5 AM Documents on File Type Date Recorded Patient Conveyor Installer Expl anation Advance Directives and Livin g Will 01/31/2019 8:54 AM Latest Code Status on File Code Status Date Activated Date Inactivated Comments Full Code 01/24/2019 10:19 AM Full Code 01/20/2019 9:05 AM 01/24/2019 10:19 AM Full Code - Unverified 01/17/2019 4:34 PM 01/20/2019 9:0 5 AM Documents on File Type Date Recorded Patient Conveyor Installer Expl anation Advance Directives and Livin g Will 02/02/2019 9:03 AM Latest Code Status on File Code Status Date Activated Date Inactivated Comments Full Code 02/02/2019 10:37 AM Full Code 01/24/2019 10:19 AM 02/02/2019 10:22 AM Full Code 01/20/2019 9:05 AM 01/24/2019 10:19 AM Documents on File Type Date Recorded Patient Conveyor Installer Expl anation Advance Directives and Livin g Will 02/06/2019 12:35 PM Latest Code Status on File Code Status Date Activated Date Inactivated Comments Full Code 02/02/2019 10:37 AM Full Code 01/24/2019 10:19 AM 02/02/2019 10:22 AM Documents on File Type Date Recorded Patient Conveyor Installer Expl anation Advance Directives and Livin g Will 02/13/2019 8:39 AM Documents on File Type Date Recorded Patient Conveyor Installer Expl anation Advance Directives and Livin g Will 02/21/2019 8:55 AM Documents on File Type Date Recorded Patient Conveyor Installer Expl anation Advance Directives and Livin g Will 02/25/2019 8:52 PM Latest Code Status on File Code Status Date Activated Date Inactivated Comments Full Code 02/02/2019 10:37 AM 02/25/2019 8:18 PM Documents on File Type Date Recorded Patient Conveyor Installer Expl anation Advance Directives and Livin g Will 02/25/2019 8:52 PM Latest Code Status on File Code Status Date Activated Date Inactivated Comments Full Code 02/02/2019 10:37 AM 02/25/2019 8:18 PM Documents on File Type Date Recorded Patient Conveyor Installer Expl anation Advance Directives and Livin g Will 03/13/2019 10:55 AM Documents on File Type Date Recorded Patient Conveyor Installer Expl anation Advance Directives and Livin g Will 03/13/2019 10:55 AM Documents on File Type Date Recorded Patient Conveyor Installer Expl anation Advance Directives and Livin g Will 09/22/2019 9:34 AM Latest Code Status on File Code Status Date Activated Date Inactivated Comments Full Code 09/22/2019 10:48 AM 09/23/2019 7:50 PM Full Code 02/02/2019 10:37 AM 02/25/2019 8:18 PM Documents on File Type Date Recorded Patient Conveyor Installer Expl anation Advance Directives and Livin g Will 10/15/2019 10:09 PM Latest Code Status on File Code Status Date Activated Date Inactivated Comments Full Code 10/16/2019 12:56 AM 10/16/2019 6:18 PM Full Code 09/22/2019 10:48 AM 09/23/2019 7:50 PM Documents on File Type Date Recorded Patient Conveyor Installer Expl anation Advance Directives and Livin g Will 12/10/2018 7:30 PM Documents on File Type Date Recorded Patient Conveyor Installer Expl anation Advance Directives and Livin g Will 10/15/2019 10:09 PM Latest Code Status on File Code Status Date Activated Date Inactivated Comments Full Code 10/16/2019 12:56 AM 10/16/2019 6:18 PM Full Code 09/22/2019 10:48 AM 09/23/2019 7:50 PM Full Code 02/02/2019 10:37 AM 02/25/2019 8:18 PM Documents on File Type Date Recorded Patient Conveyor Installer Expl anation Advance Directives and Livin g Will 01/17/2019 12:26 PM Documents on File Type Date Recorded Patient Conveyor Installer Expl anation Advance Directives and Livin g Will 01/04/2019 5:09 PM Documents on File Type Date Recorded Patient Conveyor Installer Expl anation Advance Directives and Livin g Will 12/18/2018 10:26 AM Documents on File Type Date Recorded Patient Conveyor Installer Expl anation Advance Directives and Livin g Will 09/22/2019 9:34 AM Latest Code Status on File Code Status Date Activated Date Inactivated Comments Full Code 09/22/2019 10:48 AM 09/23/2019 7:50 PM Documents on File Type Date Recorded Patient Conveyor Installer Expl anation Advance Directives and Livin g Will 05/28/2020 3:48 PM Documents on File Type Date Recorded Patient Conveyor Installer Expl anation Advance Directives and Livin g Will 05/28/2020 3:48 PM Documents on File Type Date Recorded Patient Conveyor Installer Expl anation Advance Directives and Livin g Will 06/02/2020 3:48 PM Latest Code Status on File Code Status Date Activated Date Inactivated Comments Full Code - Unverified 06/02/2020 8:25 AM 06/02/2020 5:1 8 PM Full Code 10/16/2019 12:56 AM 10/16/2019 6:18 PM Documents on File Type Date Recorded Patient Conveyor Installer Expl anation Advance Directives and Livin g Will 06/10/2020 3:48 PM Documents on File Type Date Recorded Patient Conveyor Installer Expl anation Advance Directives and Livin g Will 06/10/2020 3:48 PM Latest Code Status on File Code Status Date Activated Date Inactivated Comments Full Code - Unverified 06/02/2020 8:25 AM 06/02/2020 5:1 8 PM Full Code 10/16/2019 12:56 AM 10/16/2019 6:18 PM Documents on File Type Date Recorded Patient Conveyor Installer Expl anation Advance Directives and Livin g Will 08/06/2020 3:48 PM Documents on File Type Date Recorded Patient Conveyor Installer Expl anation Advance Directives and Livin g Will 08/06/2020 3:48 PM Latest Code Status on File Code Status Date Activated Date Inactivated Comments Full Code 04/25/2020 8:37 PM Latest Code Status on File Date Activated Date Inactivated Comments 06/02/2020 8:25 AM 06/02/2020 5:18 PM Full Code Date Activated Date Inactivated Comments 10/16/2019 12:56 AM 10/16/2019 6:18 PM Full Code Date Activated Date Inactivated Comments 09/22/2019 10:48 AM 09/23/2019 7:50 PM Full Code Date Activated Date Inactivated Comments 02/02/2019 10:37 AM 02/25/2019 8:18 PM Full Code Date Activated Date Inactivated Comments 01/24/2019 10:19 AM 02/02/2019 10:22 AM Latest Code Status on File Code Status Date Activated Date Inactivated Comments Full Code 04/25/2020 8:37 PM Latest Code Status on File Code Status Date Activated Date Inactivated Comments Full Code 11/06/2021 1:33 PM 11/09/2021 5:21 PM Code Status History Code Status Date Activated Date Inactivated Comments Full Code - Unverified 06/02/2020 8:25 AM 06/02/2020 5:1 8 PM Full Code 10/16/2019 12:56 AM 10/16/2019 6:18 PM Full Code 09/22/2019 10:48 AM 09/23/2019 7:50 PM Full Code 02/02/2019 10:37 AM 02/25/2019 8:18 PM Advance Directive Response Recorded Date/ Time Advance Directives No December 07, 2022 2:37pm Hospital Course Note [facility] [address] [place] [address] NAME FERNANDO HELTON [facility] [id number] 1970 ADMIT 09/23/2017 DISCH 09/25/2017 DISCHARGE SUMMARY PRINCIPAL DIAGNOSIS FOR ADMISSION Chest pain. DISCHARGE DIAGNOSES Include: 1. Acute pericarditis. 2. History of coronary artery disease. 3. Hypertension.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 MD - 09/27/2018 8:13 PM Annie Fu RN - 09/27/2018 7:48 PM EDT ED Notes (unrecognized secti on and content) Adjusted PT in bed Physician at bedside. Updated PT on medical plan. Associated Order(s): ECG 12 Lead ED PROVIDER NOTE [facility] EMERGENCY DEPARTMENT NAME: Fernando Helton AGE: 48 y.o. : 1970 VISIT DATE: 09/27/2018 CSN: [id number] PCP: Moises Patel MD Chief Complaint Patient presents with Chest Pain Patient is here for shortness of breath and wheezing . Patient has some rib pain. This has no similarity to when he had his heart attacks. He had 2 stents in the past. The rib pain has no similarity to when he had his heart attacks. This is more of a cough and wheezing. He he does have COPD and used to be an ex-smoker. Past Medical History: Diagnosis Date Ankle swelling Anxiety Appendicitis 1998 s/p appendectomy 1998 CAD (coronary artery disease) CAD s/p [facility] with 1 stent in left main 07/2012, replaced 09/2014 Chest pain Circulation problem right leg COPD (chronic obstructive pulmonary disease) (HCC) Fatigue GERD (gastroesophageal reflux disease) Headache HLD (hyperlipidemia) HTN (hypertension) Metabolic syndrome Mood disorder (HCC) Obstructive sleep apnea Pneumomediastinum (HCC) 01/2007 Rotator cuff tear, right 1997 s/p repair SLAP tear of shoulder 2012 left - s/p surgery to place [address] elevation myocardial infarction (STEMI) of anterolateral wall (HCC) 05/09/12 Past Surgical History: Procedure Laterality Date APPENDECTOMY 1998 CARDIAC CATHETERIZATION 09/2014 Segment LV dysf., mild to moderate LV systolic impairment, moderate LV diastolic dysf.; single vesselCAD CARDIAC CATHETERIZATION 04/2012 Severe LV systolic dysf., EF 20%; elevated LVEDP; segmental contraction abnormality of the LV; single vessel CAD with acute thrombotic occlusion of left anterior descending. CARDIAC CATHETERIZATION Left 09/28/2015 Dr. Rowland Predominant single vessel CAD w/ no angiographic evidence of restenosis within Intervened upon segment LAD, reidentification of high grade small caliber jailed diagonal disease. Normal LV end-diastolic pressure. COLONOSCOPY 05/27/2015 CORONARY STENT PLACEMENT 2012 Drug eluted Alpine stent in the left anterior descending CORONARY STENT PLACEMENT 2014 Subacute stent thrombosis which appears late. This may be in the settin g of areas of restenosis within the stent. Alpine XIENCE drug eluted stent OTHER SURGICAL HISTORY 05/27/2015 Endoscopy ROTATOR CUFF REPAIR Right 1997 SHOULDER ARTHROSCOPY W/ SUPERIOR LABRAL ANTERIOR POSTERIOR REPAIR Left 11/21/12 SHOULDER ARTHROSCOPY W/ SUPERIOR LABRAL ANTERIOR POSTERIOR REPAIR Left [address] 6 anchors SHOULDER SURGERY Left 05/08/2013 SINUS SURGERY 2008 or 2010 STENT PLACEMENT 05/09/12 and intraaortic balloon pump Family History Problem Relation Age of Onset Heart attack Father Other Father high cholesterol Heart disease Father Other Mother high cholesterol Heart disease Mother Stroke Mother 64 Coronary artery disease Other Cancer Paternal Uncle unknown cancer Social History Socioeconomic History Marital status: Spouse name: Not on file Number of children: Not on file Years of education: Not on file Highest education level: Not on file Occupational History Not on file Social Needs Financial resource strain: Not on file Food insecurity: Worry: Not on file Inability: Not on file Transportation needs: Medical: Not on file Non-medical: Not on file Tobacco Use Smoking status: Former Smoker Packs/day: 1.00 Last attempt to quit: 05/12/2016 Years since quittin.3 Smokeless tobacco: Never Used Tobacco comment: 20+ years. Quit May 12 Substance and Sexual Activity Alcohol use: Yes Alcohol/week: 0.0 standard drinks Comment: socially Drug use: Yes Types: Marijuana Comment: smokes marijuana 1-2 times per month Sexual activity: Not on file Lifestyle Physical activity: Days per week: Not on file Minutes per session: Not on file Stress: Not on file Relationships Social connections: Talks on phone: Not on file Gets together: Not on file Attends pentecostal service: Not on file Active member of club or organization: Not on file Attends meetings of clubs or organizations: Not on file Relationship status: Not on file Other Topics Concern Not on file Social History Narrative Not on file Previous Medications Medication Sig ALBUTEROL SULFATE (VENTOLIN HFA INHL) Inhale as needed aspirin 81 MG EC tablet Take 81 mg by mouth daily. atorvastatin (LIPITOR) 20 MG tablet Take 1 (one) tablet (20 mg total) by mouth daily . BUDESONIDE/FORMOTEROL FUMARATE (SYMBICORT INHL) Inhale 2 (two) times a day carvedilol (COREG) 12.5 MG tablet Take 1 (one) tablet (12.5 mg total) by mouth 2 (two) times a day with meals . enalapril (VASOTEC) 5 MG tablet Take 1 (one) tablet (5 mg total) by mouth 2 (two) times a day . furosemide (LASIX) 20 MG tablet TAKE NEEDED FOR WEIGHT GAIN DIRECTED; MAX 1 TABLET PER DAY omeprazole (PRILOSEC) 40 MG capsule Take 40 mg by mouth daily prasugrel (EFFIENT) 10 mg tablet Take 1 (one) tablet (10 mg total) by mouth daily . rOPINIRole (REQUIP) 2 MG tablet Take 2 mg by mouth nightly. Allergies Allergen Reactions Imdur [Isosorbide Mononitrate] Caused severe headache and had to stop it. Review of Systems Respiratory: Positive for cough, shortness of breath and wheezing. All other systems reviewed and are negative. Patient Vitals for the past 24 hrs: BP Temp Temp src Pulse Resp SpO2 Height Weight 09/27/18 2145 (!) 145/92 90 (!) 24 09/27/18 2130 (!) 131/94 89 (!) 21 09/27/18 2100 (!) 125/92 84 (!) 28 09/27/182003 (!) 127/90 89 18 09/27/18 1930 90 (!) 24 95 % 09/27/18 1907 (!) 144/86 98.5 F (36.9 C) Oral 90 18 95 % 5' 6 104.3 kg (230 lb) Physical Exam Constitutional: He appears well-developed. Non-toxic appearance. HENT: Head: Normocephalic. Eyes: Pupils are equal, round, and reactive to light. Neck: Normal range of motion. Cardiovascular: Regular rhythm. Pulmonary/Chest: Effort normal. Musculoskeletal: Normal range of motion. Neurological: He is alert. Skin: Skin is warm. Capillary refill takes less than 2 seconds. Psychiatric: He has a normal mood and affect. Laboratory & Radiographic Imaging (if done): Results for orders placed or performed during the hospital encounter of 09/27/18 POC CBC and Differential Result Value Ref Range WBC 13.50 (H) 4.50 - 11.00 K/mcL RBC 5.27 4.50 - 5.90 M/mcL Hemoglobin 15.0 13.5 - 17.5 g/dL Hematocrit 45.1 41.0 - 53.0 % MCV 85.6 80.0 - 100.0 fL MCH 28.5 26.0 - 34.0 pg MCHC 33.3 31.0 - 37.0 g/dL RDW - CV 15.4 (H) 11.6 - 14.8 % Platelets 285 150 - 400 K/mcL MPV 10.4 9.0 - 15.5 fL Comment See Comment (CR) (none) EKG 12-lead Result Value Ref Range Ventricular Rate 90 BPM Atrial Rate 90 BPM P-R Interval 164 ms QRS Duration 94 ms Q-T Interval 348 ms QTC Calculation (Bezet) 425 ms P [place] 62 degrees R [place] 0 degrees T [place] 72 degrees POC Basic Metabolic Panel Result Value Ref Range Glucose 140 (H) 65 - 99 mg/dL BUN 20 8 - 25 mg/dL Creatinine 1.0 0.5 - 1.3 mg/dL Sodium 139 135 - 145 mmol/L Potassium 3.4 (L) 3.5 - 5.1 mmol/L Chloride 106 98 - 108 mmol/L TCO2 25 21 - 32 mmol/L Calcium 9.5 8.4 - 10.2 mg/dL POC D-dimer Result Value Ref Range POC D-Dimer <100 <350 ng/mL DDU POC Troponin I Result Value Ref Range Troponin I <0.05 <0.05 ng/mL POC B-type natriuretic peptide (BNP) Result Value Ref Range BNP 19.0 <100 pg/mL POC Troponin I Result Value Ref Range Troponin I <0.05 <0.05 ng/mL CBC Auto Differential Result Value Ref Range WBC 13.33 (H) 4.50 - 11.00 K/mcL RBC 5.33 4.50 - 5.90 M/mcL Hemoglobin 14.7 13.5 - 17.5 g/dL Hematocrit 44.7 41.0 - 53.0 % MCV 83.9 80.0 - 100.0 fL MCH 27.6 26.0 - 34.0 pg MCHC 32.9 31.0 - 37.0 g/dL Platelets 288 150 - 400 K/mcL RDW - CV 14.7 11.6 - 14.8 % MPV 10.6 9.0 - 15.5 fL Neutrophils 50.8 % Lymphocytes 33.4 % Monocytes 8.3 % Eosinophils 6.2 % Basophils 0.7 % IG Percent 0.60 % Neutrophils Abs 6.79 1.70 - 7.00 K/mcL Lymphocytes Abs 4.45 (H) 0.90 - 4.00 K/mcL Monocytes Abs 1.10 (H) 0.30 - 0.90 K/mcL Eosinophils Abs 0.82 (H) 0.00 - 0.50 K/mcL Basophils Abs 0.09 0.00 - 0.30 K/mcL IG Absolute 0.08 0.00 - 0.30 K/mcL Nucleated RBC 0.0 % Nucleated RBC Abs 0.00 0.00 - 0.00 K/mcL XR Chest 1 View Final Result Negative acute portable chest. BAB/ads Workstation ID: [id number] ECG 12 Lead Date/Time: 09/27/2018 7:16 PM Performed by: Nathanael Valencia MD Authorized by: Nathanale Valencia MD Comparison: not compared with previous ECG Rhythm: sinus rhythm BPM: 90 Conduction: conduction normal ST Segments: ST segments normal T Waves: T waves normal Clinical impression: non-specific ECG Comments: No acute ischemic changes MDM Number of Diagnoses or Management Options Diagnosis management comments: Based on negative troponin nonacute EKG and his story which is consistent with coughing and bronchitis. I strongly doubt this is cardiac in origin. We are going to go ahead and put him on steroids antibiotics. To be extra safe we will repeat troponin at 9 PM. Troponin x2 are negative on this patient. Patient will be discharged as acute exacerbation of COPD. Patient will be discharged on prednisone as well as Levaquin. . Clinical Impression: SNOMED CT(R) 1. Acute exacerbation of chronic obstructive pulmonary disease (COPD) (HCC) ACUTE EXACERBATION OF CHRONIC OBSTRUCTIVE AIRWAYS DISEASE ED Disposition ED Disposition Condition Comment Discharge Stable Fernando Helton discharged to home/self care in stable condition. Follow-up Information 1. Moises Patel MD. Specialty: Family Medicine Why: If symptoms worsen [address] [facility] [address] Contact information for after-discharge care Follow-up information has not been specified. New Prescriptions predniSONE (DELTASONE) 10 MG tablet Take 4 (four) tablets (40 mg total) by mouth daily for 5 days . levoFLOXacin (LEVAQUIN) 500 MG tablet Take 1 (one) tablet (500 mg total) by mouth daily . Nathanael Valencia MD 09/27/18 2200 PT reports feeling better after breathing treatment Physician at bedside. PT reports chest and side pain with deep breath documented in this encounter PT C/O INTENSE CHEST PAIN STARTING AROUND 630 THIS MORNING. PT IDENTIFIES THE PAIN SIMILAR TO WHEN HE HAD HIS PRIOR PA. PT LOCATES IT IN THE MIDDLE OF HIS CHEST AND RADIATES TO HIS BACK AND JAW. PT STATES HE IS SOB, SUFFERS COPD BUT NOT O2 DEPENDANT. PT IS ABLE TO SPEAK IN COMPLETE SENTENCES WITHOUT DIFFICULTY. PT DOES HAVE SOME AUDIBLE WHEEZING. PT IS WARM AND DRY ED PROVIDER NOTE [facility] EMERGENCY DEPARTMENT NAME: Fernando Helton AGE: 48 y.o. : 1970 VISIT DATE: 01/17/2019 CSN: [id number] PCP: Moises Patel MD Chief Complaint Patient presents with Chest Pain HPI Patient is a 48-year-old male with multiple medical problems including a history of coronary artery disease, he presents to the ED with a complaint of chest pain started 6 AM this morning while asleep. In the ED patient is awake is alert she is answering question appropriately his speech is clear no facial droop is noted GCS is 15 initial vitals blood pressure,,, patient said he is on multiple cardiac cath and recent cardiac stents placed in the left main artery September 2014. He said he intermittently gets chest pain which is unremarkable however this pain is persisted since 6 AM this morning midsternal constant radiated to upper back nausea one episodes of nonbilious nonbloody emesis decided to come in the ED for evaluation. Denies any bowel or bladder complaint. Patient also reported history of COPD but says he has had no productive cough no fevers in the past few weeks. Past Medical History: Diagnosis Date Ankle swelling Anxiety Appendicitis 1998 s/p appendectomy 1998 CAD (coronary artery disease) CAD s/p C with 1 stent in left main 07/2012, replaced 09/2014 Chest pain Circulation problem right leg COPD (chronic obstructive pulmonary disease) ([facility]) Fatigue GERD (gastroesophageal reflux disease) Headache HLD (hyperlipidemia) HTN (hypertension) Metabolic syndrome Mood disorder ([facility]) Obstructive sleep apnea Pneumomediastinum ([facility]) 01/2007 Rotator cuff tear, right 1997 s/p repair SLAP tear of shoulder 2011 left - s/p surgery to place [address] elevation myocardial infarction (STEMI) of anterolateral wall ([facility]) 05/09/12 Past Surgical History: Procedure Laterality Date APPENDECTOMY 1998 CARDIAC CATHETERIZATION 09/2014 Segment LV dysf., mild to moderate LV systolic impairment, moderate LV diastolic dysf.; single vesselCAD CARDIAC CATHETERIZATION 04/2012 Severe LV systolic dysf., EF 20%; elevated LVEDP; segmental contraction abnormality of the LV; single vessel CAD with acute thrombotic occlusion of left anterior descending. CARDIAC CATHETERIZATION Left 09/28/2015 Dr. Rowland Predominant single vessel CAD w/ no angiographic evidence of restenosis within Intervened upon segment LAD, reidentification of high grade small caliber jailed diagonal disease. Normal LV end-diastolic pressure. COLONOSCOPY 05/27/2015 CORONARY STENT PLACEMENT 2012 Drug eluted Alpine stent in the left anterior descending CORONARY STENT PLACEMENT 2014 Subacute stent thrombosis which appears late. This may be in the settin g of areas of restenosis within the stent. Alpine XIENCE drug eluted stent OTHER SURGICAL HISTORY 05/27/2015 Endoscopy ROTATOR CUFF REPAIR Right 1997 SHOULDER ARTHROSCOPY W/ SUPERIOR LABRAL ANTERIOR POSTERIOR REPAIR Left 11/21/12 SHOULDER ARTHROSCOPY W/ SUPERIOR LABRAL ANTERIOR POSTERIOR REPAIR Left [address] 6 anchors SHOULDER SURGERY Left 05/08/2013 SINUS SURGERY 2008 or 2009 STENT PLACEMENT 05/09/12 and intraaortic balloon pump Family History Problem Relation Age of Onset Heart attack Father Other Father high cholesterol Heart disease Father Other Mother high cholesterol Heart disease Mother Stroke Mother 64 Coronary artery disease Other Cancer Paternal Uncle unknown cancer Social History Socioeconomic History Marital status: Spouse name: Not on file Number of children: Not on file Years of education: Not on file Highest education level: Not on file Occupational History Not on file Social Needs Financial resource strain: Not on file Food insecurity Worry: Not on file Inability: Not on file Transportation needs Medical: Not on file Non-medical: Not on file Tobacco Use Smoking status: Former Smoker Packs/day: 1.00 Last attempt to quit: 05/12/2016 Years since quittin.6 Smokeless tobacco: Never Used Tobacco comment: 20+ years. Quit May 12 Substance and Sexual Activity Alcohol use: Yes Alcohol/week: 0.0 standard drinks Comment: socially Drug use: Not Currently Sexual activity: Not on file Lifestyle Physical activity Days per week: Not on file Minutes per session: Not on file Stress: Not on file Relationships Social connections Talks on phone: Not on file Gets together: Not on file Attends pentecostal service: Not on file Active member of club or organization: Not on file Attends meetings of clubs or organizations: Not on file Relationship status: Not on file Other Topics Concern Not on file Social History Narrative Not on file Previous Medications Medication Sig ALBUTEROL SULFATE (VENTOLIN HFA INHL) Inhale as needed aspirin 81 MG EC tablet Take 81 mg by mouth daily. atorvastatin (LIPITOR) 20 MG tablet Take 1 (one) tablet (20 mg total) by mouth daily . BUDESONIDE/FORMOTEROL FUMARATE (SYMBICORT INHL) Inhale 2 (two) times a day carvedilol (COREG) 25 MG tablet Take 1 (one) tablet (25 mg total) by mouth 2 (two) times a day with meals . enalapril (VASOTEC) 5 MG tablet TAKE 1 TABLET(5 MG) BY MOUTH TWICE DAILY furosemide (LASIX) 40 MG tablet Take 1 (one) tablet (40 mg total) by mouth daily . hydroCHLOROthiazide (HYDRODIURIL) 25 MG tablet Take 1 (one) tablet (25 mg total) by mouth daily . ipratropium-albuterol (DUO-NEB) 0.5-2.5 mg/3 ml nebulizer Take 3 mL by nebulization every 6 (six) hours . omeprazole (PRILOSEC) 40 MG capsule Take 40 mg by mouth daily potassium chloride SA (K-DUR,KLOR-CON) 10 MEQ tablet TAKE 1 TABLET(10 MEQ) BY MOUTH TWICE DAILY prasugrel (EFFIENT) 10 mg tablet Take 1 (one) tablet (10 mg total) by mouth daily . rOPINIRole (REQUIP) 2 MG tablet Take 2 mg by mouth nightly. varenicline (CHANTIX KYLAH) 0.5 mg (11)- 1 mg (42) tablet Take 0.5mg daily for 3 days (days 1-3), then 0.5mg two times a day for 4 days (days 4-7), then 1mg two times a day Allergies Allergen Reactions Imdur [Isosorbide Mononitrate] Caused severe headache and had to stop it. Review of Systems All other systems reviewed and are negative. Patient Vitals for the past 24 hrs: BP Pulse SpO2 Height Weight 01/17/19 1330 73 98 % 01/17/19 1300 117/69 75 97 % 01/17/19 1221 5' 7 113.4 kg (250 lb) 01/17/19 1200 133/86 76 98 % Physical Exam Vitals signs and nursing note reviewed. Constitutional: General: He is not in acute distress. Appearance: He is well-developed. He is not ill-appearing, toxic-appearing or diaphoretic. HENT: Head: Normocephalic and atraumatic. Eyes: General: No scleral icterus. Conjunctiva/sclera: Conjunctivae normal. Neck: Musculoskeletal: Normal range of motion. Thyroid: No thyromegaly. Vascular: No hepatojugular reflux. Cardiovascular: Rate and Rhythm: Normal rate and regular rhythm. Heart sounds: Normal heart sounds. No murmur. Pulmonary: Effort: Pulmonary effort is normal. No tachypnea, accessory muscle usage or respiratory distress. Breath sounds: Normal breath sounds. No decreased breath sounds, wheezing or rhonchi. Chest: Chest wall: No mass or deformity. Abdominal: General: Bowel sounds are normal. There is no abdominal bruit. Palpations: There is no fluid wave or hepatomegaly. Musculoskeletal: Right lower leg: He exhibits no tenderness and no swelling. No edema. Left lower leg: He exhibits no tenderness and no swelling. No edema. Lymphadenopathy: Cervical: No cervical adenopathy. Skin: General: Skin is warm. Findings: No rash. Neurological: General: No focal deficit present. Mental Status: He is alert and oriented to person, place, and time. Psychiatric: Mood and Affect: Mood normal. Behavior: Behavior normal. Laboratory & Radiographic Imaging (if done): Results for orders placed or performed during the hospital encounter of 01/17/19 Basic Metabolic Panel Result Value Ref Range Sodium 138 135 - 145 mmol/L Potassium 4.0 3.5 - 5.1 mmol/L Chloride 109 (H) 98 - 108 mmol/L Bicarbonate 24 21 - 32 mmol/L Anion Gap 9 (L) 10 - 20 mmol/L Glucose 125 (H) 65 - 99 mg/dL BUN 22 8 - 25 mg/dL Creatinine 1.11 0.50 - 1.30 mg/dL eGFR 79 >=60 mL/min/1.73 m2 BUN/Creatinine Ratio 19.8 10.0 - 20.0 Calcium 8.1 (L) 8.4 - 10.2 mg/dL NT Pro BNP Result Value Ref Range NT-Pro BNP 123 0 - 300 pg/mL Troponin x 2 (Now and Repeat in 3 hours) Result Value Ref Range Troponin I <15 <=45 ng/L Troponin I Interpretation Normal PT/INR Result Value Ref Range Protime (PT) 12.5 11.8 - 14.3 seconds INR 1.0 0.8 - 1.1 Lactic Acid, Plasma Result Value Ref Range Lactic Acid 1.2 0.6 - 2.0 mmol/L Hepatic Function Panel (LFT) Result Value Ref Range Total Protein 6.2 6.0 - 8.0 g/dL Albumin 3.1 (L) 3.2 - 5.2 g/dL Total Bilirubin 0.9 0.0 - 1.3 mg/dL Bilirubin, Direct 0.2 0.0 - 0.4 mg/dL Alkaline Phosphatase 75 40 - 150 U/L AST 28 0 - 45 U/L ALT 67 (H) 14 - 65 U/L D-Dimer, Quantitative Result Value Ref Range D-Dimer 0.30 0.27 - 0.49 mcg/mL FEU Lipase Result Value Ref Range Lipase 89 73 - 393 U/L ECG 12 Lead Result Value Ref Range Ventricular Rate 73 BPM Atrial Rate 73 BPM P-R Interval 164 ms QRS Duration 86 ms Q-T Interval 386 ms QTC Calculation (Bezet) 425 ms P [place] 67 degrees R Cl[place] 2 degrees T [place] 65 degrees CBC Auto Differential Result Value Ref Range WBC 12.08 (H) 4.50 - 11.00 K/mcL RBC 4.85 4.50 - 5.90 M/mcL Hemoglobin 13.6 13.5 - 17.5 g/dL Hematocrit 41.5 41.0 - 53.0 % MCV 85.6 80.0 - 100.0 fL MCH 28.0 26.0 - 34.0 pg MCHC 32.8 31.0 - 37.0 g/dL Platelets 269 150 - 400 K/mcL RDW - CV 14.0 11.6 - 14.8 % MPV 10.0 9.0 - 15.5 fL Neutrophils 57.0 % Lymphocytes 27.9 % Monocytes 8.4 % Eosinophils 5.3 % Basophils 0.7 % IG Percent 0.70 % Neutrophils Abs 6.89 1.70 - 7.00 K/mcL Lymphocytes Abs 3.37 0.90 - 4.00 K/mcL Monocytes Abs 1.02 (H) 0.30 - 0.90 K/mcL Eosinophils Abs 0.64 (H) 0.00 - 0.50 K/mcL Basophils Abs 0.08 0.00 - 0.30 K/mcL IG Absolute 0.08 0.00 - 0.30 K/mcL Nucleated RBC 0.0 % Nucleated RBC Abs 0.00 0.00 - 0.00 K/mcL XR Chest 1 View Preliminary Result No acute cardiopulmonary process. ST/ges Workstation ID: [id number] Procedures MDM Patient is a 48-year-old male with multiple medical problems including a history of coronary artery disease COPD presents to the ED once midsternal chest pain that woke him up 6 AM this morning which she described as a constant heaviness pressure some nausea and one episode of clear emesis. Initial EKG in the ED does show normal sinus rhythm rate of 73 beats per minutes VA interval 164 ms QRS duration 86 ms QTC is [address] wave abnormality. She has been given aspirin and low dose of Dilaudid for pain 4 mg IV Zofran for nausea bolus of 500 cc normal saline we will continue to monitor patient review labs images and treat appropriately. Work-up in the ED including EKG cardiac markers chest x-ray are all within normal limits however upon reevaluating patient he still complaining of chest pain will admit patient for ACS rule out. . . Clinical Impression: 1. Chest pain, atypical ED Disposition ED Disposition Condition Comment Hospitalize Follow-up Information Follow-up information has not been specified. Contact information for after-discharge care Follow-up information has not been specified. Ana Weaver MD 01/18/19 0957 XRAY AT BEDSIDE documented in this encounter CALLED [facility] CARDIAC/THORACIC PER DR. WEAVER LEFT MESSAGE FOR HER TO CALL BACK. 22:53 [facility] ED Physician Note: NAME: Fernando Helton 48 y.o. CSN: [id number] PCP: Moises Patel MD History: Chief Complaint: Shortness of Breath HPI: The history was obtained from the patient. He is a 48 y.o. male who presents with a chief complaint of Shortness of Breath. Patient reports that he underwent coronary artery bypass grafting over 4 weeks ago here at [facility] Patient reports that around 1 PM he developed sudden onset of dyspnea. Patient reports this to be accompanied by left lung discomfort. Patient describes discomfort as sharp. Shortness of breath is present at rest and worsens with movement. PMHx: Past Medical History: Diagnosis Date Acute respiratory failure ([facility]) 09/2014 requring mechanical ventilation Anxiety Bilateral lower extremity edema R > L CAD (coronary artery disease) CAD s/p LHC with 1 stent in left main 07/2012, replaced 09/2014 Cardiac arrest with ventricular fibrillation ([facility]) 09/25/2014 CHF (congestive heart failure), NYHA class I, chronic, diastolic ([facility]) Chronic sinusitis Claudication of right lower extremity ([facility]) Cluster headache COPD (chronic obstructive pulmonary disease) ([facility]) 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 Bev Tolentino Metabolic syndrome Mood disorder (HCC) Nasal fracture Obstructive sleep apnea noncompliant with CPAP Orthostatic dizziness with intermittent syncope Pericarditis 02/25/07; 09/23/17 Pneumomediastinum (HCC) 01/12/2007 secondary to severe coughing spell & ruptured alveoli Rotator cuff tear, right 1998 s/p repair SLAP tear of shoulder 2011 left - s/p surgery to place [address] elevation myocardial infarction (STEMI) of anterolateral wall ([facility]) 05/09/2012 anterolateral STEMI involving left anterior descending coronary artery ([facility]) 09/25/2014 anterior Superficial thrombophlebitis of right upper extremity 12/26/2006 PMSx: Past Surgical History: Procedure Laterality Date APPENDECTOMY 1998 BONE MARROW BIOPSY W/ ASPIRATION Left 11/27/2016 L posterior iliac crest; Dr. Bev Tolentino CABG OFF PUMP N/A 01/24/2019 Procedure: Coronary Artery Bypass graft x1 with Left Internal Mammary Artery graft, OFF PUMP; Surgeon: Neo Mcneil MD; Location: Main OR; Service: Cardiothoracic CARDIAC CATHETERIZATION 09/24/2014 Segment LV dysf., mild to moderate LV systolic impairment, moderate LV diastolic dysf.; single vessel CAD by Dr. Whitney CARDIAC CATHETERIZATION 05/09/2012 Emergent. Severe LVSD EF 20%; single vessel CAD with acute thrombotic occlusion of left anterior descending by Dr. Rowland CARDIAC CATHETERIZATION Left 09/28/2015 Dr. Rowland Predominant single vessel CAD w/ no angiographic evidence of restenosis within Intervened upon segment LAD, reidentification of high grade small caliber jailed diagonal disease. Normal LV end-diastolic pressure. CARDIAC CATHETERIZATION 01/14/[address] Phillips CARDIAC CATHETERIZATION 11/24/[address] Rowland COLONOSCOPY 05/27/2015 CORONARY ANGIOPLASTY 12/25/2014 PCI with balloon angioplasty by Dr. Whitney of jailed diagonal CORONARY STENT PLACEMENT 05/09/2012 Drug eluted Alpine stent in the left anterior descending by Dr. Rowland CORONARY STENT PLACEMENT 09/24/2014 Subacute stent thrombosis by Dr. Whitney. This may be in the setting of areas of restenosis within the LAD stent CV IR INTERVENTIONAL RADIOLOGY Left 02/03/2019 Procedure: IR THORACENTESIS LEFT; Surgeon: Gilmer Zelaya MD; Location: IR LAB; Service: Interventional Radiology ETHMOIDECTOMY Bilateral 06/25/[address] Gaitan HC LEFT HEART CATH N/A 01/20/2019 Procedure: Left Heart Cath; Surgeon: Carlo Mercedes MD; Location: [facility]; Service: Cardiovascular IABP placement 05/09/[address] Rowland NASAL SEPTUM SURGERY 06/25/[address] Gaitan ROTATOR CUFF REPAIR Right 1998 SHOULDER ARTHROSCOPY W/ SUPERIOR LABRAL ANTERIOR POSTERIOR REPAIR Left 11/2012 @ [facility] SHOULDER ARTHROSCOPY W/ SUPERIOR LABRAL ANTERIOR POSTERIOR REPAIR Left 11/22/2011 shoulder arthroscopic anterior capsulorraphy, SLAP repair, acromioplasty, limited debridement of labrum and rotator cuff by Dr. Sexton SINUSOTOMY Bilateral 06/25/2007 with removal of tissue by Dr. Gaitan UPPER GASTROINTESTINAL ENDOSCOPY 2016 FAM. Hx: Family History Problem Relation Age of Onset Heart attack Father Heart disease Father s/p cabg x 4 in his 40s Coronary artery disease Father Hypertension Father Hyperlipidemia Father Heart disease Mother Stroke Mother 64 Hyperlipidemia Mother Coronary artery disease Other Cancer Paternal Uncle unknown cancer Hypertension Sister Diabetes Brother Heart disease Brother s/p PCI Melanoma Brother SOC. Hx: Social History Socioeconomic History Marital status: Spouse name: Not on file Number of children: 3 Years of education: Not on file Highest education level: Not on file Occupational History Not on file Social Needs Financial resource strain: Not on file Food insecurity Worry: Not on file Inability: Not on file Transportation needs Medical: Not on file Non-medical: Not on file Tobacco Use Smoking status: Former Smoker Packs/day: 1.00 Years: 35.00 Pack years: 35.00 Last attempt to quit: 05/12/2016 Years since quittin.7 Smokeless tobacco: Never Used Tobacco comment: Quit 05/12/18 Substance and Sexual Activity Alcohol use: Yes Alcohol/week: 0.0 standard drinks Comment: socially Drug use: Not Currently Types: Marijuana Sexual activity: Not on file Lifestyle Physical activity Days per week: Not on file Minutes per session: Not on file Stress: Not on file Relationships Social connections Talks on phone: Not on file Gets together: Not on file Attends pentecostal service: Not on file Active member of club or organization: Not on file Attends meetings of clubs or organizations: Not on file Relationship status: Not on file Other Topics Concern Not on file Social History Narrative Not on file MEDs: Previous Medications Medication Sig acetaminophen (TYLENOL) 325 MG tablet Take 2 (two) tablets (650 mg total) by mouth every 6 (six) hours as needed for pain . albuterol 90 mcg/actuation inhaler Inhale 2 puffs every 6 (six) hours as needed for wheezing or shortness of breath . aspirin 81 MG EC tablet Take 81 mg by mouth daily. atorvastatin (LIPITOR) 20 MG tablet Take 1 (one) tablet (20 mg total) by mouth nightly . budesonide-formoterol (Symbicort) 160-4.5 mcg/actuation inhaler Inhale 2 puffs 2 (two) times a day . clopidogrel (PLAVIX) 75 mg tablet Take 1 (one) tablet (75 mg total) by mouth daily . docusate sodium (COLACE) 100 MG capsule Take 1 (one) capsule (100 mg total) by mouth daily Hold only for diarrhea . ferrous sulfate 325 (65 FE) MG tablet Take 1 (one) tablet (325 mg total) by mouth 3 (three) times a day with meals . furosemide (Lasix) 20 MG tablet Take 1 (one) tablet (20 mg total) by mouth daily . gabapentin (NEURONTIN) 300 MG capsule Take 300 mg by mouth 3 (three) times a day as needed filled 02-04-19 #42 for 14 days . metoprolol tartrate 75 mg Tab Take 75 mg by mouth 2 (two) times a day . omeprazole (PRILOSEC) 40 MG capsule Take 1 (one) capsule (40 mg total) by mouth daily . potassium chloride SA (K-DUR,KLOR-CON) 20 MEQ tablet Take 20 mEq by mouth 2 (two) times a day . rOPINIRole (REQUIP) 2 MG tablet Take 2 mg by mouth nightly. blood sugar diagnostic (glucose blood) strips Use as directed before breakfast and supper Dx E11.65 . blood-glucose meter kit Use as instructed Dx E11.65 . freestyle 28 gauge lancets USE DIRECTED BID BEFORE BREAKFAST AND SUPPER lancets Misc Use as directed before breakfast and supper Dx E11.65 . potassium chloride SA (K-DUR,KLOR-CON) 20 MEQ tablet Take 1 (one) tablet (20 mEq total) by mouth daily . ALL: Allergies Allergen Reactions Imdur [Isosorbide Mononitrate] Other (See Comments) Caused severe headache and had to stop it. ROS: Review of Systems General: No fevers or chills. Eyes: No photophobia or blurred vision. ENT: No sore throat or earache. Cardiovascular: No chest pain or palpitations. Respiratory: Patient reports shortness of breath. No cough. Gastrointestinal: No vomiting or diarrhea. Genitourinary: No dysuria or hematuria. Musculoskeletal: Patient reports back pain. Neurologic: No headache or weakness. Skin: No rashes or bruises. Psychiatry: Patient reports anxiety. No depression. All other systems were reviewed and were negative. Physical Exam: General: Patient is in no obvious distress. HEENT: Normocephalic, atraumatic, pupils equal round react to light and accommodate. No scleral icterus. No tonsillar erythema or exudates. Moist mucous membranes. Neck: Supple, trachea midline. Cardiovascular: Regular rate and rhythm, no murmurs, no gallops, no rubs. Chest: Clear. No wheezes, no rales, no rhonchi. Extremities: No lower extremity edema. Skin: Warm and dry Psychiatric: Patient is cooperative. Affect appropriate. Patient Vitals for the past 24 hrs: BP Temp Temp src Pulse Resp SpO2 Height Weight 02/25/19 2230 117/84 81 96 % 02/25/19 2215 82 97 % 02/25/19 2205 128/80 82 18 97 % 02/25/19 2203 (!) 132/101 97 % 02/25/19 2145 84 96 % 02/25/19 2130 (!) 137/90 83 96 % 02/25/19 2115 134/84 83 96 % 02/25/190 134/84 83 18 96 % 02/25/19 2100 85 96 % 02/25/19 2045 86 96 % 02/25/192031 (!) 143/98 98 F (36.7 C) Oral 84 (!) 20 92 % 5' 6 107.5 kg (237 lb) Laboratory & Radiological Imaging (if done): Labs Reviewed BASIC METABOLIC PANEL - Abnormal; Notable for the following components: Result Value Anion Gap 9 (*) Glucose 104 (*) All other components within normal limits Narrative: The eGFR should be used for monitoring renal function only and not for medication dosing. CBC WITH AUTO DIFFERENTIAL - Abnormal; Notable for the following components: WBC 15.47 (*) Hemoglobin 13.0 (*) Hematocrit 39.9 (*) Platelets 406 (*) Neutrophils Abs 7.99 (*) Monocytes Abs 1.39 (*) Eosinophils Abs 2.35 (*) All other components within normal limits PT/INR - Normal Narrative: During the induction phase of oral anticoagulation, the INR may not reflect the anticoagulation status of the patient. Therapeutic ranges for INR's are: Most clinical situations: INR 2.0-3.0 Mechanical Prosthetic Valve: INR 2.5-3.5 Critical: INR >5.0 NT PRO BNP - Normal Narrative: Pride Study Cut-offs Rule In: < /= 50 Years >450 pg/mL 51 Years - 75 Years >900 pg/mL 76 Years - 99 Years >1800 pg/mL Rule Out: All patients <300 pg/mL CBC AND DIFFERENTIAL Narrative: The following orders were created for panel order CBC and Differential. Procedure Abnormality Status --------- ------ CBC Auto Differential[[id number]] Abnormal Final result Please view results for these tests on the individual orders. TROPONIN CT Pulmonary Arteries Final Result - NO evidence of pulmonary embolus is demonstrated in the central/main or visualized hilar pulmonary arteries. - Postoperative changes in the sternum. The osteotomy appears slightly widened with some areas demonstrating irregular margins to the bone edges in the sternum. There is NO well-defined, complex fluid collection to suggest an abscess. Please correlate for history and/or physical findings. This can be a cause of continued chest pain. If further evaluation is felt to be indicated, follow-up should be considered with MRI. - Pericardial effusion and/or thickening as described. This is increased when compared with the previous examination. Please correlate with any known history and/or clinical findings. - LEFT LUNG: Small pleural effusion. This is mildly to moderately decreased when compared with the previous examination. - Fibrotic appearing changes in the lingula and LEFT upper lobe. Minimal dependent changes/atelectasis.. Improved aeration overall in the LEFT lung base; however. Workstation ID: [id number] XR Chest AP/PA and LAT Preliminary Result Bibasilar atelectasis with mild bronchial thickening. Central vascular prominence without edema. No consolidation, effusion, or pneumothorax. ASC/hb Workstation ID: [id number] ED Course / Medical Decision Making: MDM: Patient signed out to Dr. Weaver at the conclusion of my shift. Clinical Impression: No diagnosis found. Disposition: Fausto Alejandro M.D. [facility] Emergency Department Fausto Alejandro MD 02/25/19 2249 PT STATES SHORTNESS OF BREATH STARTED AT 1PM TODAY, WITH LEFT SIDE BACK PAIN, PT STATES HAD BYPASS SURGERY FIVE WEEKS AGO AND AT THAT TIME HAD FLUID AROUND LEFT LUNG AND THIS FEELS LIKE THAT Bed: 09 Expected date: Expected time: Means of arrival: Comments: 2nd patient documented in this encounter ED PROVIDER NOTE [facility] EMERGENCY DEPARTMENT NAME: Fernando Helton AGE: 49 y.o. : 1970 VISIT DATE: 10/15/2019 CSN: [id number] PCP: Moises Patel MD Chief Complaint Patient presents with Weakness Patient and give history Patient admits that he does no recall the events that precipitated the contacting 911 noted patient became less responsive but still able to indicate to her that he never had total LOC Shaky Diaphoresis Lasted 5-6 minutes Currently asymptomatic History provided by: Patient and spouse Past Medical History: Diagnosis Date Acute respiratory failure (HCC) 09/2014 requring mechanical ventilation Anxiety Bilateral lower extremity edema R > L CAD (coronary artery disease) CAD s/p LHC with 1 stent in left main 07/2012, replaced 09/2014 Cardiac arrest with ventricular fibrillation (HCC) 09/25/2014 CHF (congestive heart failure), NYHA class I, chronic, diastolic (HCC) Chronic sinusitis Claudication of right lower extremity (HCC) Cluster headache COPD (chronic obstructive pulmonary disease) (HCC) 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 Bev Tolentino Metabolic syndrome Mood disorder ([facility]) Nasal fracture Obstructive sleep apnea noncompliant with CPAP Orthostatic dizziness with intermittent syncope Pericarditis 02/25/07; 09/23/17 Pneumomediastinum ([facility]) 01/12/2007 secondary to severe coughing spell & ruptured alveoli Rotator cuff tear, right 1998 s/p repair SLAP tear of shoulder 2011 left - s/p surgery to place [address] elevation myocardial infarction (STEMI) of anterolateral wall ([facility]) 05/09/2012 anterolateral STEMI involving left anterior descending coronary artery ([facility]) 09/25/2014 anterior Superficial thrombophlebitis of right upper extremity 12/26/2006 Past Surgical History: Procedure Laterality Date APPENDECTOMY 1998 BONE MARROW BIOPSY W/ ASPIRATION Left 11/27/2016 L posterior iliac crest; Dr. Bev Tolentino CABG OFF PUMP N/A 01/24/2019 Procedure: Coronary Artery Bypass graft x1 with Left Internal Mammary Artery graft, OFF PUMP; Surgeon: Neo Mcneil MD; Location: Main OR; Service: Cardiothoracic CARDIAC CATHETERIZATION 09/24/2014 Segment LV dysf., mild to moderate LV systolic impairment, moderate LV diastolic dysf.; single vessel CAD by Dr. Whitney CARDIAC CATHETERIZATION 05/09/2012 Emergent. Severe LVSD EF 20%; single vessel CAD with acute thrombotic occlusion of left anterior descending by Dr. Rowland CARDIAC CATHETERIZATION Left 09/28/2015 Dr. Rowland Predominant single vessel CAD w/ no angiographic evidence of restenosis within Intervened upon segment LAD, reidentification of high grade small caliber jailed diagonal disease. Normal LV end-diastolic pressure. CARDIAC CATHETERIZATION 01/14/[address] Phillips CARDIAC CATHETERIZATION 11/24/[address] Rowland COLONOSCOPY 05/27/2015 CORONARY ANGIOPLASTY 12/25/2014 PCI with balloon angioplasty by Dr. Whitney of jailed diagonal CORONARY STENT PLACEMENT 05/09/2012 Drug eluted Alpine stent in the left anterior descending by Dr. Rowland CORONARY STENT PLACEMENT 09/24/2014 Subacute stent thrombosis by Dr. Whitney. This may be in the setting of areas of restenosis within the LAD stent CV IR INTERVENTIONAL RADIOLOGY Left 02/03/2019 Procedure: IR THORACENTESIS LEFT; Surgeon: Gilmer Zelaya MD; Location: IR LAB; Service: Interventional Radiology ETHMOIDECTOMY Bilateral 06/25/[address] Gaitan LEFT HEART CATH N/A 01/20/2019 Procedure: Left Heart Cath; Surgeon: Carlo Mercedes MD; Location: [facility]; Service: Cardiovascular IABP placement 05/09/[address] Rowland NASAL SEPTUM SURGERY 06/25/[address] Gaitan ROTATOR CUFF REPAIR Right 1997 SHOULDER ARTHROSCOPY W/ SUPERIOR LABRAL ANTERIOR POSTERIOR REPAIR Left 11/2012 @ [facility] SHOULDER ARTHROSCOPY W/ SUPERIOR LABRAL ANTERIOR POSTERIOR REPAIR Left 11/22/2011 shoulder arthroscopic anterior capsulorraphy, SLAP repair, acromioplasty, limited debridement of labrum and rotator cuff by Dr. Sexton SINUSOTOMY Bilateral 06/25/2007 with removal of tissue by Dr. Gaitan UPPER GASTROINTESTINAL ENDOSCOPY 2015 Family History Problem Relation Age of Onset Heart attack Father Heart disease Father s/p cabg x 4 in his 40s Coronary artery disease Father Hypertension Father Hyperlipidemia Father Heart disease Mother Stroke Mother 64 Hyperlipidemia Mother Coronary artery disease Other Cancer Paternal Uncle unknown cancer Hypertension Sister Diabetes Brother Heart disease Brother s/p PCI Melanoma Brother Social History Socioeconomic History Marital status: Spouse name: Not on file Number of children: 3 Years of education: Not on file Highest education level: Not on file Occupational History Not on file Social Needs Financial resource strain: Not on file Food insecurity Worry: Not on file Inability: Not on file Transportation needs Medical: Not on file Non-medical: Not on file Tobacco Use Smoking status: Former Smoker Packs/day: 1.00 Years: 35.00 Pack years: 35.00 Quit date: 05/12/2016 Years since quittin.4 Smokeless tobacco: Never Used Tobacco comment: Quit 05/12/18 Substance and Sexual Activity Alcohol use: Yes Alcohol/week: 0.0 standard drinks Comment: socially Drug use: Not Currently Types: Marijuana Sexual activity: Not on file Lifestyle Physical activity Days per week: Not on file Minutes per session: Not on file Stress: Not on file Relationships Social connections Talks on phone: Not on file Gets together: Not on file Attends pentecostal service: Not on file Active member of club or organization: Not on file Attends meetings of clubs or organizations: Not on file Relationship status: Not on file Other Topics Concern Not on file Social History Narrative Not on file Previous Medications Medication Sig albuterol 90 mcg/actuation inhaler Inhale 2 puffs every 6 (six) hours as needed for wheezing or shortness of breath . aspirin 81 MG EC tablet Take 81 mg by mouth daily. atorvastatin (LIPITOR) 40 MG tablet Take 1 (one) tablet (40 mg total) by mouth nightly . blood sugar diagnostic (glucose blood) strips Use as directed before breakfast and supper Dx E11.65 . blood-glucose meter kit Use as instructed Dx E11.65 . budesonide-formoterol (Symbicort) 160-4.5 mcg/actuation inhaler Inhale 2 puffs 2 (two) times a day . clopidogreL (PLAVIX) 75 mg tablet Take 1 (one) tablet (75 mg total) by mouth daily . freestyle 28 gauge lancets USE DIRECTED BID BEFORE BREAKFAST AND SUPPER furosemide (Lasix) 20 MG tablet Take 1 (one) tablet (20 mg total) by mouth daily . lancets Misc Use as directed before breakfast and supper Dx E11.65 . metoprolol tartrate 75 mg Tab Take 75 mg by mouth 2 (two) times a day . omeprazole (PRILOSEC) 40 MG capsule Take 1 (one) capsule (40 mg total) by mouth daily . potassium chloride (K-DUR) 10 MEQ CR tablet Take 1 (one) tablet (10 mEq total) by mouth daily . rOPINIRole (REQUIP) 2 MG tablet Take 2 mg by mouth nightly. traZODone (DESYREL) 50 MG tablet Take 50 mg by mouth nightly as needed . Allergies Allergen Reactions Imdur [Isosorbide Mononitrate] Other (See Comments) Caused severe headache and had to stop it. Review of Systems Constitutional: Positive for diaphoresis. Neurological: Positive for tremors. All other systems reviewed and are negative. Patient Vitals for the past 24 hrs: BP Temp Pulse Resp SpO2 Height Weight 10/15/19 2200 (!) 155/75 82 97 % 10/15/19 2134 (!) 152/92 97.8 F (36.6 C) 85 18 97 % 5' 6 117.9 kg (260 lb) Physical Exam Vitals signs and nursing note reviewed. Constitutional: Appearance: He is obese. HENT: Right Ear: External ear normal. Left Ear: External ear normal. Nose: Nose normal. Mouth/Throat: Mouth: Mucous membranes are moist. Pharynx: Oropharynx is clear. Eyes: Conjunctiva/sclera: Conjunctivae normal. Pupils: Pupils are equal, round, and reactive to light. Cardiovascular: Rate and Rhythm: Normal rate and regular rhythm. Pulses: Normal pulses. Heart sounds: Normal heart sounds. Pulmonary: Effort: Pulmonary effort is normal. Breath sounds: Normal breath sounds and air entry. Abdominal: General: Bowel sounds are normal. Palpations: Abdomen is soft. Tenderness: There is no abdominal tenderness. There is no right CVA tenderness or left CVA tenderness. Musculoskeletal: Normal range of motion. Skin: General: Skin is warm. Capillary Refill: Capillary refill takes less than 2 seconds. Findings: No rash. Neurological: General: No focal deficit present. Mental Status: He is alert and oriented to person, place, and time. Cranial Nerves: No cranial nerve deficit. Sensory: No sensory deficit. Motor: No weakness or pronator drift. Coordination: Xrkkuy-Mvcb-Mmzypn Test normal. Psychiatric: Attention and Perception: Attention normal. Mood and Affect: Mood normal. Speech: Speech normal. Behavior: Behavior normal. Thought Content: Thought content normal. Cognition and Memory: Cognition normal. Judgment: Judgment normal. Laboratory & Radiographic Imaging (if done): Results for orders placed or performed during the hospital encounter of 10/15/19 Alcohol, Medical Result Value Ref Range Alcohol (Medical) <10.00 <10.00 mg/dL BMP Result Value Ref Range Sodium 137 135 - 145 mmol/L Potassium 4.2 3.5 - 5.1 mmol/L Chloride 108 98 - 108 mmol/L Bicarbonate 23 21 - 32 mmol/L Anion Gap 10 10 - 20 mmol/L Glucose 203 (H) 65 - 99 mg/dL BUN 27 (H) 8 - 25 mg/dL Creatinine 1.41 (H) 0.50 - 1.30 mg/dL eGFR 58 (L) >=60 mL/min/1.73 m2 BUN/Creatinine Ratio 19.1 10.0 - 20.0 Calcium 9.0 8.4 - 10.2 mg/dL NT Pro BNP Result Value Ref Range NT-Pro BNP 137 0 - 300 pg/mL Hepatic Function Panel (LFT) Result Value Ref Range Total Protein 7.1 6.0 - 8.0 g/dL Albumin 3.5 3.2 - 5.2 g/dL Total Bilirubin 0.4 0.0 - 1.3 mg/dL Bilirubin, Direct 0.1 0.0 - 0.4 mg/dL Alkaline Phosphatase 106 40 - 150 U/L AST 21 0 - 45 U/L ALT 52 14 - 65 U/L PT/INR Result Value Ref Range Protime (PT) 12.7 11.8 - 14.3 seconds INR 1.0 0.8 - 1.1 Troponin Result Value Ref Range Troponin I <15 <=45 ng/L Troponin I Interpretation Normal POC Glucose Result Value Ref Range Glucose 189 (A) 65 - 99 mg/dL EKG 12-lead Result Value Ref Range Ventricular Rate 85 BPM Atrial Rate 85 BPM P-R Interval 170 ms QRS Duration 90 ms Q-T Interval 388 ms QTC Calculation (Bezet) 461 ms P [place] 61 degrees R [place] -4 degrees T [place] 80 degrees POC Glucose Result Value Ref Range Glucose 189 (H) 65 - 99 mg/dL CBC Auto Differential Result Value Ref Range WBC 16.86 (H) 4.50 - 11.00 K/mcL RBC 5.37 4.50 - 5.90 M/mcL Hemoglobin 14.6 13.5 - 17.5 g/dL Hematocrit 45.2 41.0 - 53.0 % MCV 84.2 80.0 - 100.0 fL MCH 27.2 26.0 - 34.0 pg MCHC 32.3 31.0 - 37.0 g/dL Platelets 329 150 - 400 K/mcL RDW - CV 15.3 (H) 11.6 - 14.8 % MPV 10.5 9.4 - 12.4 fL Neutrophils 70.6 % Lymphocytes 19.9 % Monocytes 8.2 % Eosinophils 0.1 % Basophils 0.3 % IG Percent 0.90 % Neutrophils Abs 11.91 (H) 1.70 - 7.00 K/mcL Lymphocytes Abs 3.35 0.90 - 4.00 K/mcL Monocytes Abs 1.39 (H) 0.30 - 0.90 K/mcL Eosinophils Abs 0.01 0.00 - 0.50 K/mcL Basophils Abs 0.05 0.00 - 0.30 K/mcL IG Absolute 0.15 0.00 - 0.30 K/mcL Nucleated RBC 0.0 % Nucleated RBC Abs 0.00 0.00 - 0.00 K/mcL XR Chest 1 View Final Result No acute cardiopulmonary disease. Workstation ID: [id number] CT Head Or Brain Without Contrast Final Result No CT evidence of acute intracranial abnormality. Workstation ID: [id number] Procedures MDM ED Course as of Oct 14 2257 Wed Oct 15, [id number] msp [LD] ED Course User Index [LD] Sasha Contreras PA-C . Clinical Impression: 1. Near syncope ED Disposition ED Disposition Condition Comment Hospitalize Recommended Level of Care: Med Surg Phone call required?: Yes Follow-up Information Follow-up information has not been specified. Contact information for after-discharge care Follow-up information has not been specified. Sasha Contreras PA-C 10/15/[id number] PT BEDSIDE. STATES THAT PT WAS RACING HIS CAR AND PT WAS ON HIS KNEES AND PT STARTED TO HAVE A SYNCOPAL EPISODE AND BECAME DIAPHORETIC. STATES THAT PT WAS TALKING TO HER BUT HE DOES NOT REMEMBER THE EPISODE. Bed: 01 Expected date: Expected time: Means of arrival: Comments: MFD R3 PT ARRIVES VIA EMS FOR GENERALIZED WEAKNESSX 1 HOUR WITH A HEADACHE AND DIZZINESS. WAS HOSPITALIZED 1 WEEK AGO FOR A TIA. HAD OPEN HEART IN January. DENIES CP AND SOB AT THIS TIME. documented in this encounter Associated Order(s): ECG 12- Lead ED PROVIDER NOTE [facility] EMERGENCY DEPARTMENT NAME: Fernando Helton AGE: 48 y.o. : 1970 VISIT DATE: 01/04/2019 CSN: [id number] PCP: Moises Patel MD Chief Complaint Patient presents with Shortness of Breath x2 months CC: Waxing and waning shortness of breath x2 months HPI: Patient with a past medical history of COPD; presented to the ER with waxing and waning shortness of breath going on for 2 months; no significant expectoration; shortness of breath gets worse after ambulation; patient also history of PA in the past requiring stent placement 2012 and 2014; patient follows up with the belly roller; recently had echocardiogram; that as per him shows ejection fraction around 46%; recently had a cardiac MRI; belly roller thinks that he does not have CHF; patient does have a leg edema; and has been prescribed hydrochlorothiazide; which she has been taking; but still getting short of breath; experiences of wheezing; use albuterol and nebulization; not feeling better; no fever no chills Past Medical History: Diagnosis Date Ankle swelling Anxiety Appendicitis 1998 s/p appendectomy 1998 CAD (coronary artery disease) CAD s/p [facility] with 1 stent in left main 07/2012, replaced 09/2014 Chest pain Circulation problem right leg COPD (chronic obstructive pulmonary disease) ([facility]) Fatigue GERD (gastroesophageal reflux disease) Headache HLD (hyperlipidemia) HTN (hypertension) Metabolic syndrome Mood disorder ([facility]) Obstructive sleep apnea Pneumomediastinum ([facility]) 01/2007 Rotator cuff tear, right 1997 s/p repair SLAP tear of shoulder 2011 left - s/p surgery to place [address] elevation myocardial infarction (STEMI) of anterolateral wall ([facility]) 05/09/12 Past Surgical History: Procedure Laterality Date APPENDECTOMY 1998 CARDIAC CATHETERIZATION 09/2014 Segment LV dysf., mild to moderate LV systolic impairment, moderate LV diastolic dysf.; single vesselCAD CARDIAC CATHETERIZATION 04/2012 Severe LV systolic dysf., EF 20%; elevated LVEDP; segmental contraction abnormality of the LV; single vessel CAD with acute thrombotic occlusion of left anterior descending. CARDIAC CATHETERIZATION Left 09/28/2015 Dr. Rowland Predominant single vessel CAD w/ no angiographic evidence of restenosis within Intervened upon segment LAD, reidentification of high grade small caliber jailed diagonal disease. Normal LV end-diastolic pressure. COLONOSCOPY 05/27/2015 CORONARY STENT PLACEMENT 2012 Drug eluted Alpine stent in the left anterior descending CORONARY STENT PLACEMENT 2014 Subacute stent thrombosis which appears late. This may be in the settin g of areas of restenosis within the stent. Alpine XIENCE drug eluted stent OTHER SURGICAL HISTORY 05/27/2015 Endoscopy ROTATOR CUFF REPAIR Right 1997 SHOULDER ARTHROSCOPY W/ SUPERIOR LABRAL ANTERIOR POSTERIOR REPAIR Left 11/21/12 SHOULDER ARTHROSCOPY W/ SUPERIOR LABRAL ANTERIOR POSTERIOR REPAIR Left [address] 6 anchors SHOULDER SURGERY Left 05/08/2013 SINUS SURGERY 2008 or 2010 STENT PLACEMENT 05/09/12 and intraaortic balloon pump Family History Problem Relation Age of Onset Heart attack Father Other Father high cholesterol Heart disease Father Other Mother high cholesterol Heart disease Mother Stroke Mother 64 Coronary artery disease Other Cancer Paternal Uncle unknown cancer Social History Socioeconomic History Marital status: Spouse name: Not on file Number of children: Not on file Years of education: Not on file Highest education level: Not on file Occupational History Not on file Social Needs Financial resource strain: Not on file Food insecurity Worry: Not on file Inability: Not on file Transportation needs Medical: Not on file Non-medical: Not on file Tobacco Use Smoking status: Former Smoker Packs/day: 1.00 Last attempt to quit: 05/12/2016 Years since quittin.6 Smokeless tobacco: Never Used Tobacco comment: 20+ years. Quit May 12 Substance and Sexual Activity Alcohol use: Yes Alcohol/week: 0.0 standard drinks Comment: socially Drug use: Not Currently Sexual activity: Not on file Lifestyle Physical activity Days per week: Not on file Minutes per session: Not on file Stress: Not on file Relationships Social connections Talks on phone: Not on file Gets together: Not on file Attends pentecostal service: Not on file Active member of club or organization: Not on file Attends meetings of clubs or organizations: Not on file Relationship status: Not on file Other Topics Concern Not on file Social History Narrative Not on file Previous Medications Medication Sig ALBUTEROL SULFATE (VENTOLIN HFA INHL) Inhale as needed aspirin 81 MG EC tablet Take 81 mg by mouth daily. atorvastatin (LIPITOR) 20 MG tablet Take 1 (one) tablet (20 mg total) by mouth daily . BUDESONIDE/FORMOTEROL FUMARATE (SYMBICORT INHL) Inhale 2 (two) times a day carvedilol (COREG) 25 MG tablet Take 1 (one) tablet (25 mg total) by mouth 2 (two) times a day with meals . enalapril (VASOTEC) 5 MG tablet TAKE 1 TABLET(5 MG) BY MOUTH TWICE DAILY furosemide (LASIX) 40 MG tablet TAKE 1 TABLET(40 MG) BY MOUTH DAILY hydroCHLOROthiazide (HYDRODIURIL) 25 MG tablet Take 1 (one) tablet (25 mg total) by mouth daily . omeprazole (PRILOSEC) 40 MG capsule Take 40 mg by mouth daily potassium chloride SA (K-DUR,KLOR-CON) 10 MEQ tablet TAKE 1 TABLET(10 MEQ) BY MOUTH TWICE DAILY prasugrel (EFFIENT) 10 mg tablet Take 1 (one) tablet (10 mg total) by mouth daily . rOPINIRole (REQUIP) 2 MG tablet Take 2 mg by mouth nightly. varenicline (CHANTIX KYLAH) 0.5 mg (11)- 1 mg (42) tablet Take 0.5mg daily for 3 days (days 1-3), then 0.5mg two times a day for 4 days (days 4-7), then 1mg two times a day Allergies Allergen Reactions Imdur [Isosorbide Mononitrate] Caused severe headache and had to stop it. Review of Systems Constitutional: Positive for fatigue. HENT: Negative. Eyes: Negative. Respiratory: Positive for cough, shortness of breath and wheezing. Cardiovascular: Positive for leg swelling. Gastrointestinal: Negative. Endocrine: Negative. Genitourinary: Negative. Musculoskeletal: Negative. Skin: Negative. Allergic/Immunologic: Negative. Neurological: Negative. Hematological: Negative. Psychiatric/Behavioral: Negative. Patient Vitals for the past 24 hrs: BP Temp Temp src Pulse Resp SpO2 Height Weight 01/04/19 1655 137/88 97.9 F (36.6 C) Oral 79 14 98 % 5' 6 113.4 kg (250 lb) Physical Exam Vitals signs and nursing note reviewed. Constitutional: Appearance: He is well-developed. He is obese. HENT: Head: Normocephalic and atraumatic. Mouth/Throat: Mouth: Mucous membranes are moist. Pharynx: Oropharynx is clear. Eyes: Extraocular Movements: Extraocular movements intact. Pupils: Pupils are equal, round, and reactive to light. Neck: Musculoskeletal: Normal range of motion and neck supple. Vascular: No JVD. Cardiovascular: Rate and Rhythm: Normal rate and regular rhythm. Heart sounds: No murmur. Pulmonary: Effort: Pulmonary effort is normal. No accessory muscle usage or respiratory distress. Breath sounds: Wheezing present. Abdominal: General: Bowel sounds are normal. Palpations: Abdomen is soft. Musculoskeletal: Normal range of motion. Right lower leg: Edema present. Left lower leg: Edema present. Comments: 1+ pitting edema knee-high Skin: General: Skin is warm. Capillary Refill: Capillary refill takes less than 2 seconds. Neurological: General: No focal deficit present. Mental Status: He is alert. He is disoriented. Laboratory & Radiographic Imaging (if done): No results found for this visit on 01/04/19. XR Chest AP/PA and LAT (Results Pending) ECG 12- Lead Date/Time: 01/04/2019 6:25 PM Performed by: Brian Cordoba MD Authorized by: Brian Cordoba MD Rhythm: sinus rhythm BPM: 75 Comments: Normal sinus rhythm at rate of 75 bpm low voltage QRS; QTC 4 4 4 ms; MDM Number of Diagnoses or Management Options Diagnosis management comments: History and physical examination suggestive of CHF; labs and radiology results negative for CHF; d-dimer negative; EKG negative for any acute ischemia; all the result discussed with the patient; impression is a COPD; patient has been taking only albuterol; will give prednisone for 5 days; and DuoNeb; stay away from passive smoking; follow-up with the PCP Amount and/or Complexity of Data Reviewed Clinical lab tests: ordered and reviewed Discussion of test results with the performing providers: no Decide to obtain previous medical records or to obtain history from someone other than the patient: no Obtain history from someone other than the patient: no Review and summarize past medical records: no Discuss the patient with other providers: no Independent visualization of images, tracings, or specimens: no Risk of Complications, Morbidity, and/or Mortality Presenting problems: high Diagnostic procedures: high Management options: high Patient Progress Patient progress: stable ED Course as of Jan 05 1844 Sat Jan 04, 2019 1836 Labs and radiology results discussed with the patient [ZA] ED Course User Index [ZA] Brian Cordoba MD . Clinical Impression: No diagnosis found. ED Disposition None Follow-up Information Follow-up information has not been specified. Contact information for after-discharge care Follow-up information has not been specified. Brian Cordoba MD 01/04/19 194 Presents to ED c/o shortness of breath x 2 months. states, he gets this every year . documented in this encounter Special isolation precautions are in place with signage outside this patient's room. This wound care nurse performs hand hygiene and enters the patient room wearing: ? gloves ? an appropriately fitting (N-95, PAPR, Aura) mask ? face shield ? protective gown to provide care. See documentation for the care provided. Dr Wu states that pt can be admitted with consult to neurology. He suggests a CTA and an MRI for pt to begin with. Dr Herberth Weaver to be made aware. s Dr Wu on virtual screen ED PROVIDER NOTE [facility] EMERGENCY DEPARTMENT NAME: Fernando Helton AGE: 49 y.o. : 1970 VISIT DATE: 09/22/2019 CSN: [id number] PCP: Moises Patel MD Chief Complaint Patient presents with Dizziness Blurred Vision HPI Patient is a 49-year-old male with multiple medical problems including a history of coronary Artery disease status post CABG presents to the ED with multiple complaints including weakness , slurred speech , altered mental status, blurred vision and dizziness. Patient states symptoms occurred after after waking up this morning around 5:00am. In the ED patient is awake alert is answering questions appropriately his speech is clear no facial droop is noted GCS is 15 initial NIHSS is 2 initial vitals systolic blood pressure 136/80 pulse is 65 pulse ox is 98% on room air he is afebrile 97.7 Fahrenheit. Patient reports going to bed last night at 10 PM woke up at 5 AM this morning said when the patient woke up he was confused his speech was slurred he was weak in the left upper and lower leg, complained of blurred vision of both eyes and dizziness so family decided to drive patient immediately to the ED concering for stroke. Upon Arrival to the ED, the patient's symptoms have improved per patient and . No previous history of CVAs reported and no recent travel, hospitalization or sick contact reported. Stroke Alert has been activated for further evaluation. Past Medical History: Diagnosis Date Acute respiratory failure (HCC) 09/2014 requring mechanical ventilation Anxiety Bilateral lower extremity edema R > L CAD (coronary artery disease) CAD s/p [facility] with 1 stent in left main 07/2012, replaced 09/2014 Cardiac arrest with ventricular fibrillation ([facility]) 09/25/2014 CHF (congestive heart failure), NYHA class I, chronic, diastolic ([facility]) Chronic sinusitis Claudication of right lower extremity ([facility]) Cluster headache COPD (chronic obstructive pulmonary disease) ([facility]) 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 Bev Tolentino Metabolic syndrome Mood disorder ([facility]) Nasal fracture Obstructive sleep apnea noncompliant with CPAP Orthostatic dizziness with intermittent syncope Pericarditis 02/25/07; 09/23/17 Pneumomediastinum ([facility]) 01/12/2007 secondary to severe coughing spell & ruptured alveoli Rotator cuff tear, right 1998 s/p repair SLAP tear of shoulder 2011 left - s/p surgery to place [address] elevation myocardial infarction (STEMI) of anterolateral wall ([facility]) 05/09/2012 anterolateral STEMI involving left anterior descending coronary artery ([facility]) 09/25/2014 anterior Superficial thrombophlebitis of right upper extremity 12/26/2006 Past Surgical History: Procedure Laterality Date APPENDECTOMY 1998 BONE MARROW BIOPSY W/ ASPIRATION Left 11/27/2016 L posterior iliac crest; Dr. Bev Tolentino CABG OFF PUMP N/A 01/24/2019 Procedure: Coronary Artery Bypass graft x1 with Left Internal Mammary Artery graft, OFF PUMP; Surgeon: Neo Mcneil MD; Location: [facility]; Service: Cardiothoracic CARDIAC CATHETERIZATION 09/24/2014 Segment LV dysf., mild to moderate LV systolic impairment, moderate LV diastolic dysf.; single vessel CAD by Dr. Whitney CARDIAC CATHETERIZATION 05/09/2012 Emergent. Severe LVSD EF 20%; single vessel CAD with acute thrombotic occlusion of left anterior descending by Dr. Rowland CARDIAC CATHETERIZATION Left 09/28/2015 Dr. Rowland Predominant single vessel CAD w/ no angiographic evidence of restenosis within Intervened upon segment LAD, reidentification of high grade small caliber jailed diagonal disease. Normal LV end-diastolic pressure. CARDIAC CATHETERIZATION 01/14/[address] Phillips CARDIAC CATHETERIZATION 11/24/[address] Rowland COLONOSCOPY 05/27/2015 CORONARY ANGIOPLASTY 12/25/2014 PCI with balloon angioplasty by Dr. Whitney of jailed diagonal CORONARY STENT PLACEMENT 05/09/2012 Drug eluted Alpine stent in the left anterior descending by Dr. Rowland CORONARY STENT PLACEMENT 09/24/2014 Subacute stent thrombosis by Dr. Whitney. This may be in the setting of areas of restenosis within the LAD stent CV IR INTERVENTIONAL RADIOLOGY Left 02/03/2019 Procedure: IR THORACENTESIS LEFT; Surgeon: Gilmer Zelaya MD; Location: IR LAB; Service: Interventional Radiology ETHMOIDECTOMY Bilateral 06/25/[address] Gaitan HC LEFT HEART CATH N/A 01/20/2019 Procedure: Left Heart Cath; Surgeon: Carlo Mercedes MD; Location: [facility]; Service: Cardiovascular IABP placement 05/09/[address] Rowland NASAL SEPTUM SURGERY 06/25/[address] Gaitan ROTATOR CUFF REPAIR Right 1997 SHOULDER ARTHROSCOPY W/ SUPERIOR LABRAL ANTERIOR POSTERIOR REPAIR Left 11/2012 @ [facility] SHOULDER ARTHROSCOPY W/ SUPERIOR LABRAL ANTERIOR POSTERIOR REPAIR Left 11/22/2011 shoulder arthroscopic anterior capsulorraphy, SLAP repair, acromioplasty, limited debridement of labrum and rotator cuff by Dr. Sexton SINUSOTOMY Bilateral 06/25/2007 with removal of tissue by Dr. Gaitan UPPER GASTROINTESTINAL ENDOSCOPY 2016 Family History Problem Relation Age of Onset Heart attack Father Heart disease Father s/p cabg x 4 in his 40s Coronary artery disease Father Hypertension Father Hyperlipidemia Father Heart disease Mother Stroke Mother 64 Hyperlipidemia Mother Coronary artery disease Other Cancer Paternal Uncle unknown cancer Hypertension Sister Diabetes Brother Heart disease Brother s/p PCI Melanoma Brother Social History Socioeconomic History Marital status: Spouse name: Not on file Number of children: 3 Years of education: Not on file Highest education level: Not on file Occupational History Not on file Social Needs Financial resource strain: Not on file Food insecurity Worry: Not on file Inability: Not on file Transportation needs Medical: Not on file Non-medical: Not on file Tobacco Use Smoking status: Former Smoker Packs/day: 1.00 Years: 35.00 Pack years: 35.00 Last attempt to quit: 05/12/2016 Years since quittin.3 Smokeless tobacco: Never Used Tobacco comment: Quit 05/12/18 Substance and Sexual Activity Alcohol use: Yes Alcohol/week: 0.0 standard drinks Comment: socially Drug use: Not Currently Types: Marijuana Sexual activity: Not on file Lifestyle Physical activity Days per week: Not on file Minutes per session: Not on file Stress: Not on file Relationships Social connections Talks on phone: Not on file Gets together: Not on file Attends pentecostal service: Not on file Active member of club or organization: Not on file Attends meetings of clubs or organizations: Not on file Relationship status: Not on file Other Topics Concern Not on file Social History Narrative Not on file Previous Medications Medication Sig albuterol 90 mcg/actuation inhaler Inhale 2 puffs every 6 (six) hours as needed for wheezing or shortness of breath . aspirin 81 MG EC tablet Take 81 mg by mouth daily. atorvastatin (LIPITOR) 20 MG tablet Take 1 (one) tablet (20 mg total) by mouth nightly . blood sugar diagnostic (glucose blood) strips Use as directed before breakfast and supper Dx E11.65 . blood-glucose meter kit Use as instructed Dx E11.65 . budesonide-formoterol (Symbicort) 160-4.5 mcg/actuation inhaler Inhale 2 puffs 2 (two) times a day . clindamycin (CLEOCIN) 300 MG capsule Take 300 mg by mouth 3 (three) times a day . clopidogreL (PLAVIX) 75 mg tablet Take 1 (one) tablet (75 mg total) by mouth daily . freestyle 28 gauge lancets USE DIRECTED BID BEFORE BREAKFAST AND SUPPER furosemide (Lasix) 20 MG tablet Take 1 (one) tablet (20 mg total) by mouth daily . lancets Misc Use as directed before breakfast and supper Dx E11.65 . metoprolol tartrate 75 mg Tab Take 75 mg by mouth 2 (two) times a day . omeprazole (PRILOSEC) 40 MG capsule Take 1 (one) capsule (40 mg total) by mouth daily . potassium chloride (K-DUR) 10 MEQ CR tablet Take 1 (one) tablet (10 mEq total) by mouth daily . rOPINIRole (REQUIP) 2 MG tablet Take 2 mg by mouth nightly. traZODone (DESYREL) 50 MG tablet Take 50 mg by mouth nightly as needed . Allergies Allergen Reactions Imdur [Isosorbide Mononitrate] Other (See Comments) Caused severe headache and had to stop it. Review of Systems All other systems reviewed and are negative. Patient Vitals for the past 24 hrs: BP Temp Temp src Pulse Resp SpO2 Height Weight 09/22/19 0832 110/67 96 % 09/22/19 0831 94 % 09/22/19 0830 63 09/22/19 0830 96 % 09/22/19 0829 96 % 09/22/19 0828 96 % 09/22/19 0827 111/63 96 % 09/22/19 0826 94 % 09/22/19 0825 65 09/22/19 0825 96 % 09/22/19 0824 95 % 09/22/19 0823 96 % 09/22/19 0822 120/69 96 % 09/22/19 0821 95 % 09/22/19 0820 63 09/22/19 0820 96 % 09/22/19 0818 95 % 09/22/19 0817 127/67 96 % 09/22/19 0816 93 % 09/22/19 0815 69 09/22/19 0815 96 % 09/22/19 0814 97 % 09/22/19 0813 96 % 09/22/19 0812 114/64 96 % 09/22/19 0811 93 % 09/22/19 0810 66 09/22/19 0810 96 % 09/22/19 0809 96 % 09/22/19 0808 96 % 09/22/19 0807 97 % 09/22/19 0806 96 % 09/22/19 0805 64 09/22/19 0805 95 % 09/22/19 0804 95 % 09/22/19 0803 96 % 09/22/19 0802 120/71 68 98 % 09/22/19 0800 122/75 68 16 98 % 09/22/19 0751 127/74 (!) 58 16 95 % 09/22/19 0751 97.7 F (36.5 C) Temporal 09/22/19 0750 65 08 0749 136/80 65 16 98 % 5' 6 122.5 kg (270 lb) Physical Exam Vitals signs and nursing note reviewed. Constitutional: General: He is not in acute distress. Appearance: He is well-developed. He is obese. He is not ill-appearing. Comments: Sitting up in bed awake, alert, GC'S 15. HENT: Head: Normocephalic and atraumatic. Nose: Nose normal. No congestion or rhinorrhea. Eyes: General: No scleral icterus. Right eye: No discharge. Left eye: No discharge. Extraocular Movements: Extraocular movements intact. Conjunctiva/sclera: Conjunctivae normal. Pupils: Pupils are equal, round, and reactive to light. Neck: Musculoskeletal: Normal range of motion and neck supple. No neck rigidity or muscular tenderness. Cardiovascular: Rate and Rhythm: Normal rate and regular rhythm. Heart sounds: Normal heart sounds. No murmur. No friction rub. Pulmonary: Effort: Pulmonary effort is normal. No respiratory distress. Breath sounds: Normal breath sounds. No stridor. No wheezing, rhonchi or rales. Chest: Chest wall: No tenderness. Abdominal: General: Abdomen is flat. Bowel sounds are normal. There is no distension. Palpations: Abdomen is soft. There is no mass. Tenderness: There is no abdominal tenderness. There is no right CVA tenderness, left CVA tenderness or guarding. Hernia: No hernia is present. Musculoskeletal: Normal range of motion. Right lower leg: He exhibits no swelling. No edema. Left lower leg: He exhibits no swelling. No edema. Lymphadenopathy: Cervical: No cervical adenopathy. Skin: General: Skin is warm. Findings: No rash. Neurological: Mental Status: He is alert and oriented to person, place, and time. Motor: Weakness present. Psychiatric: Behavior: Behavior normal. NIH Scale: LOC: 0 - alert LOC Questions: 0 - answers both correctly LOC Commands: 0 - performs both correctly Best gaze: 0 - normal Vision: 0 - no visual loss Facial Palsy: 0 - normal Left arm: 1 - drift Right arm; 0 - no drift Left le - drift Right le - no drift Limb ataxia: 0 - absent Sensation: 0 - normal Best language: 0 - no aphasia Dysarthria: 0 - normal articulation Extinction and inattention: 0 - no neglect Stroke Scale: 2 Laboratory & Radiographic Imaging (if done): Results for orders placed or performed during the hospital encounter of 09/22/19 Chem 7 Result Value Ref Range Sodium 140 135 - 145 mmol/L Potassium 4.3 3.5 - 5.1 mmol/L Chloride 108 98 - 108 mmol/L Bicarbonate 25 21 - 32 mmol/L Creatinine 1.16 0.50 - 1.30 mg/dL Glucose 129 (H) 65 - 99 mg/dL BUN 24 8 - 25 mg/dL eGFR 74 >=60 mL/min/1.73 m2 BUN/Creatinine Ratio 20.7 (H) 10.0 - 20.0 Anion Gap 11 10 - 20 mmol/L Troponin x 2 (Now and Repeat in 3 hours) Result Value Ref Range Troponin I <15 <=45 ng/L Troponin I Interpretation Normal POC Glucose Result Value Ref Range Glucose 126 (A) 65 - 99 mg/dL POC Glucose Result Value Ref Range Glucose 126 (H) 65 - 99 mg/dL CBC Auto Differential Result Value Ref Range WBC 9.93 4.50 - 11.00 K/mcL RBC 5.27 4.50 - 5.90 M/mcL Hemoglobin 14.0 13.5 - 17.5 g/dL Hematocrit 44.9 41.0 - 53.0 % MCV 85.2 80.0 - 100.0 fL MCH 26.6 26.0 - 34.0 pg MCHC 31.2 31.0 - 37.0 g/dL Platelets 265 150 - 400 K/mcL RDW - CV 15.9 (H) 11.6 - 14.8 % MPV 10.1 9.4 - 12.4 fL Neutrophils 57.6 % Lymphocytes 25.2 % Monocytes 8.7 % Eosinophils 6.8 % Basophils 1.0 % IG Percent 0.70 % Neutrophils Abs 5.72 1.70 - 7.00 K/mcL Lymphocytes Abs 2.50 0.90 - 4.00 K/mcL Monocytes Abs 0.86 0.30 - 0.90 K/mcL Eosinophils Abs 0.68 (H) 0.00 - 0.50 K/mcL Basophils Abs 0.10 0.00 - 0.30 K/mcL IG Absolute 0.07 0.00 - 0.30 K/mcL Nucleated RBC 0.0 % Nucleated RBC Abs 0.00 0.00 - 0.00 K/mcL XR Chest 1 View Non-public Result 1. Prior median sternotomy with mild cardiomegaly. 2. No acute cardiopulmonary process otherwise suspected. Workstation ID: [id number] CT Head Without Contrast (Stroke) Final Result 1. No acute intracranial hemorrhage or large vessel ischemia by noncontrast CT. 2. Chronic paranasal sinus disease. If patient has a focal neurologic deficit or there is clinical suspicion for acute cerebrovascular accident, brain MRI may be performed for further evaluation. Workstation ID: [id number] CT Angiogram Head Neck (Results Pending) Procedures MDM Patient is a 49-year-old male with multiple medical problems including a history of coronary artery disease status post CABG, presents to the ED with a complaint of slured speech, Left upper and lower extremity weakness, generalized dizziness, Acute altered mental status with a last known well of 10 PM last night , patient went to bed woke up this morning at 5 AM with symptoms. In the ED a stroke alert was activated initial GCS is 15 initial NIHSS is 2 initial vitals are stable afebrile nontoxic looking initial EKG normal sinus rhythm rate of 67 bpm VA interval 172 ms QRS duration 86 ms QTC is [address] wave normality's. Patient has been taken to CT scan for immediate imaging. . . Clinical Impression: No diagnosis found. ED Disposition None Follow-up Information Follow-up information has not been specified. Contact information for after-discharge care Follow-up information has not been specified. Ana Weaver MD 09/22/19 0857 Ana Weaver MD 09/22/19 1[address] SCAN STROKE ALERT PAGED Pt presents to er with . States he went to bed last night at 10 pm without symptoms ( though he states fatigue yesterday) . States awakening at 5:30 am with generalized weakness, l eye blurred vision,dizziness, unsteady gait. states some slurred speech though nursing does not note this at time of arrival. Pt has slow, unsteady gait. States some nausea with dizziness. Bed: 02 Expected date: Expected time: Means of arrival: Comments: First Patient documented in this encounter Gilmer Zelaya MD - 02/03/2019 11:57 AM AntonEduardoin, PT - 01/28/2019 1:33 PM Meghann Patton RN - 01/28/2019 11:20 AM Becca Ellis, OTR/L - 01/28/2019 10:06 AM EST Consult Notes (unrecognized section and content) Associated Order(s): IP CONSULT TO INTERVENTIONAL RADIOLOGY IR CONSULT NOTE Patient Name: Fernando Helton Admit Date: [id number] MR #: [id number] : 1970 Physicians: Moises Patel MD (Family); Kristin Walker P* (Referring) Assessment and Plan: 48 y.o. male with coronary artery disease status post recent single-vessel bypass grafting who has been readmitted to the hospital with enlarging left pleural effusion and left-sided pleuritic chest pain. Consult has been placed to interventional radiology for image guided left thoracentesis. I have reviewed the patient's imaging. The patient's left-sided pleural effusion appears small by chest radiograph. That said, the volume of fluid should be large enough to allow ultrasound-guided thoracentesis. I discussed ultrasound-guided thoracentesis procedure with the patient, including risk, benefits, alternatives. All questions were answered. He wishes to proceed with thoracentesis and provides informed written consent. Relevant labs and imaging of been reviewed. I will plan to bring the patient to the angiography suite today, 02/03/2019, for ultrasound-guided left thoracentesis under local anesthetic only. Reason for Consult: Pleural effusion History of Present Illness: Fernando Helton is a 48 y.o. male with history of coronary artery disease status post single-vessel coronary artery bypass grafting on 01/24/2019. Patient was discharged to home 5 days following his surgery in stable condition. Patient has scheduled office follow-up on 01/31/2019 during which she complained of anterior sternal discomfort related to coughing as well as left chest wall pain with inspiration. He also complains of lower extremity swelling and abdominal distention. Chest x-ray at that time revealed small bilateral pleural effusions and some pulmonary venous congestion. He was managed with diuretic therapy. He next followed up with the cardiothoracic surgery service on 02/02/2019 with repeat chest x-ray. This demonstrates an increase in the patient's left pleural effusion with ongoing pulmonary congestion. Patient continued to complain of left-sided chest pain which is exacerbated by inspiration. Due to patient's persistent left chest symptoms and increasing left pleural effusion, he was admitted to the hospital for further management. Consult has been placed to interventional radiology for ultrasound-guided left thoracentesis. History: Past Medical History: Diagnosis Date Acute respiratory failure ([facility]) 09/2014 requring mechanical ventilation Anxiety Bilateral lower extremity edema R > L CAD (coronary artery disease) CAD s/p [facility] with 1 stent in left main 07/2012, replaced 09/2014 Cardiac arrest with ventricular fibrillation ([facility]) 09/25/2014 CHF (congestive heart failure), NYHA class I, chronic, diastolic ([facility]) Chronic sinusitis Claudication of right lower extremity ([facility]) Cluster headache COPD (chronic obstructive pulmonary disease) ([facility]) 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 Bev Tolentino Metabolic syndrome Mood disorder ([facility]) Nasal fracture Obstructive sleep apnea noncompliant with CPAP Orthostatic dizziness with intermittent syncope Pericarditis 02/25/07; 09/23/17 Pneumomediastinum ([facility]) 01/12/2007 secondary to severe coughing spell & ruptured alveoli Rotator cuff tear, right 1997 s/p repair SLAP tear of shoulder 2011 left - s/p surgery to place [address] elevation myocardial infarction (STEMI) of anterolateral wall ([facility]) 05/09/2012 anterolateral STEMI involving left anterior descending coronary artery ([facility]) 09/25/2014 anterior Superficial thrombophlebitis of right upper extremity 12/26/2006 Past Surgical History: Procedure Laterality Date APPENDECTOMY 1998 BONE MARROW BIOPSY W/ ASPIRATION Left 11/27/2016 L posterior iliac crest; Dr. Bev Tolentino CABG OFF PUMP N/A 01/24/2019 Procedure: Coronary Artery Bypass graft x1 with Left Internal Mammary Artery graft, OFF PUMP; Surgeon: Neo Mcneil MD; Location: [facility]; Service: Cardiothoracic CARDIAC CATHETERIZATION 09/24/2014 Segment LV dysf., mild to moderate LV systolic impairment, moderate LV diastolic dysf.; single vessel CAD by Dr. Whitney CARDIAC CATHETERIZATION 05/09/2012 Emergent. Severe LVSD EF 20%; single vessel CAD with acute thrombotic occlusion of left anterior descending by Dr. Rowland CARDIAC CATHETERIZATION Left 09/28/2015 Dr. Rowland Predominant single vessel CAD w/ no angiographic evidence of restenosis within Intervened upon segment LAD, reidentification of high grade small caliber jailed diagonal disease. Normal LV end-diastolic pressure. CARDIAC CATHETERIZATION 01/14/[address] Phillips CARDIAC CATHETERIZATION 11/24/[address] Rowland COLONOSCOPY 05/27/2015 CORONARY ANGIOPLASTY 12/25/2014 PCI with balloon angioplasty by Dr. Whitney of jailed diagonal CORONARY STENT PLACEMENT 05/09/2012 Drug eluted Alpine stent in the left anterior descending by Dr. Rowland CORONARY STENT PLACEMENT 09/24/2014 Subacute stent thrombosis by Dr. Whitney. This may be in the setting of areas of restenosis within the LAD stent ETHMOIDECTOMY Bilateral 06/25/[address] Gaitan LEFT HEART CATH N/A 01/20/2019 Procedure: Left Heart Cath; Surgeon: Carlo Mercedes MD; Location: [facility]; Service: Cardiovascular IABP placement 05/09/[address] Rowland NASAL SEPTUM SURGERY 06/25/[address] Gaitan ROTATOR CUFF REPAIR Right 1997 SHOULDER ARTHROSCOPY W/ SUPERIOR LABRAL ANTERIOR POSTERIOR REPAIR Left 11/2012 @ [facility] SHOULDER ARTHROSCOPY W/ SUPERIOR LABRAL ANTERIOR POSTERIOR REPAIR Left 11/22/2011 shoulder arthroscopic anterior capsulorraphy, SLAP repair, acromioplasty, limited debridement of labrum and rotator cuff by Dr. Sexton SINUSOTOMY Bilateral 06/25/2007 with removal of tissue by Dr. Gaitan UPPER GASTROINTESTINAL ENDOSCOPY 2016 Family History Problem Relation Age of Onset Heart attack Father Heart disease Father s/p cabg x 4 in his 40s Coronary artery disease Father Hypertension Father Hyperlipidemia Father Heart disease Mother Stroke Mother 64 Hyperlipidemia Mother Coronary artery disease Other Cancer Paternal Uncle unknown cancer Hypertension Sister Diabetes Brother Heart disease Brother s/p PCI Melanoma Brother Social History Socioeconomic History Marital status: Spouse name: Not on file Number of children: 3 Years of education: Not on file Highest education level: Not on file Occupational History Not on file Social Needs Financial resource strain: Not on file Food insecurity Worry: Not on file Inability: Not on file Transportation needs Medical: Not on file Non-medical: Not on file Tobacco Use Smoking status: Former Smoker Packs/day: 1.00 Years: 35.00 Pack years: 35.00 Last attempt to quit: 05/12/2016 Years since quittin.7 Smokeless tobacco: Never Used Tobacco comment: Quit Substance and Sexual Activity Alcohol use: Yes Alcohol/week: 0.0 standard drinks Comment: socially Drug use: Not Currently Types: Marijuana Sexual activity: Not on file Lifestyle Physical activity Days per week: Not on file Minutes per session: Not on file Stress: Not on file Relationships Social connections Talks on phone: Not on file Gets together: Not on file Attends pentecostal service: Not on file Active member of club or organization: Not on file Attends meetings of clubs or organizations: Not on file Relationship status: Not on file Other Topics Concern Not on file Social History Narrative Not on file Living Arrangements: Spouse/significant other Support Systems: Spouse/significant other Allergy Information: I have reviewed the patient's allergies. Imdur [isosorbide mononitrate] Home Medications: Outpatient Medications as of 02/03/2019 Medication Sig acetaminophen (TYLENOL) 325 MG tablet Take 2 (two) tablets (650 mg total) by mouth every 6 (six) hours as needed for pain . albuterol 90 mcg/actuation inhaler Inhale 2 puffs every 6 (six) hours as needed for wheezing or shortness of breath . aspirin 81 MG EC tablet Take 81 mg by mouth daily. atorvastatin (LIPITOR) 20 MG tablet Take 1 (one) tablet (20 mg total) by mouth nightly . blood sugar diagnostic (glucose blood) strips Use as directed before breakfast and supper Dx E11.65 . blood-glucose meter kit Use as instructed Dx E11.65 . budesonide-formoterol (Symbicort) 160-4.5 mcg/actuation inhaler Inhale 2 puffs 2 (two) times a day . clopidogrel (PLAVIX) 75 mg tablet Take 1 (one) tablet (75 mg total) by mouth daily . diazePAM (VALIUM) 5 MG tablet Take 5 mg by mouth 2 (two) times a day as needed for anxiety Reasons: muscle spasm. docusate sodium (COLACE) 100 MG capsule Take 1 (one) capsule (100 mg total) by mouth daily Hold only for diarrhea . ferrous sulfate 325 (65 FE) MG tablet Take 1 (one) tablet (325 mg total) by mouth 3 (three) times a day with meals . furosemide (LASIX) 20 MG tablet Take 20 mg by mouth daily . ipratropium-albuterol (DUO-NEB) 0.5-2.5 mg/3 ml nebulizer Take 3 mL by nebulization every 6 (six) hours . lancets Misc Use as directed before breakfast and supper Dx E11.65 . metoprolol tartrate 75 mg Tab Take 75 mg by mouth 2 (two) times a day . omeprazole (PRILOSEC) 40 MG capsule Take 1 (one) capsule (40 mg total) by mouth daily . oxyCODONE-acetaminophen (PERCOCET) 5-325 mg per tablet Take 1 (one) tablet by mouth every 4 (four) hours as needed for pain (Days supply per fill: 4.5) . potassium chloride SA (K-DUR,KLOR-CON) 20 MEQ tablet Take 20 mEq by mouth daily . rOPINIRole (REQUIP) 2 MG tablet Take 2 mg by mouth nightly. Review of Systems: Review of Systems Constitution: Positive for malaise/fatigue. Negative for chills, fever, night sweats, weight gain and weight loss. HENT: Negative for congestion, ear pain and sore throat. Eyes: Negative for blurred vision, double vision, pain and visual disturbance. Cardiovascular: Positive for chest pain (left sided pleuritic), dyspnea on exertion, leg swelling, orthopnea and paroxysmal nocturnal dyspnea. Negative for claudication and palpitations. Respiratory: Positive for shortness of breath. Negative for cough and hemoptysis. Hematologic/Lymphatic: Negative for bleeding problem. Does not bruise/bleed easily. Skin: Negative for dry skin, itching and rash. Musculoskeletal: Negative for arthritis, back pain, joint pain and muscle weakness. Gastrointestinal: Negative for abdominal pain, change in bowel habit, constipation, diarrhea, hematochezia, melena, nausea and vomiting. Genitourinary: Negative for dysuria, frequency, hematuria, nocturia and urgency. Neurological: Negative for focal weakness, headaches, numbness, paresthesias and sensory change. Psychiatric/Behavioral: Negative for depression. The patient does not have insomnia and is not nervous/anxious. Physical Examination: Vital Signs: BP (!) 132/92 (BP Location: Left arm, Patient Position: Sitting) Pulse 83 Temp 98 F (36.7 C) (Oral) Resp 18 Ht 5' 6 Wt 111 kg (244 lb 11.4 oz) SpO2 93% BMI 39.50 kg/m Physical Exam Constitutional: He is oriented to person, place, and time. He appears well- developed and well-nourished. No distress. HENT: Head: Normocephalic and atraumatic. Eyes: EOM are normal. Right eye exhibits no discharge. Left eye exhibits no discharge. No scleral icterus. Neck: Normal range of motion. Neck supple. No thyromegaly present. Cardiovascular: Normal rate, regular rhythm and intact distal pulses. Exam reveals no gallop and no friction rub. No murmur heard. Pulmonary/Chest: Effort normal. No respiratory distress. He has decreased breath sounds in the left middle field and the left lower field. He has no wheezes. He has no rales. Sternal incision well approximated. Abdominal: Soft. Bowel sounds are normal. He exhibits distension. He exhibits no mass. There is no abdominal tenderness. There is no rebound and no guarding. Musculoskeletal: Normal range of motion. General: Edema present. Lymphadenopathy: He has no cervical adenopathy. Neurological: He is alert and oriented to person, place, and time. No cranial nerve deficit. Skin: Skin is warm and dry. No rash noted. No erythema. Psychiatric: He has a normal mood and affect. Vitals reviewed. Laboratory and Additional Data Reviewed: Laboratory 02/03/19 11:57 AM Microbiology 02/03/19 11:57 AM Pathology 02/03/19 11:57 AM Radiology 02/03/19 11:57 AM Cardiology 02/03/19 11:57 AM Medications 02/03/19 11:57 AM Transcriptions 02/03/19 11:57 AM documented in this encounter Physical Therapy PHYSICAL THERAPY EVALUATION NOTE Seen for PT evaluation only. D/c PT. Skilled Therapy Needs After Discharge Are Skilled Therapy Services Needed After Discharge: No DME Recommendation: None PT Caregiver Readiness Working toward discharge home: Yes Caregiver response to training: (spouse declined to observe stair training) Outcomes Measures Prior Function - Basic Mobility Raw Score: 24 Points Prior Function - Basic Mobility % Impaired: 0% functionally impaired AM-PAC - Basic Mobility Raw Score: 18 Points AM-PAC - Basic Mobility % Impaired: 40.47% functionally impaired Physical Therapy Assessment History: The following factors influence the patient's participation in the PT plan of care: Personal factors: limited baseline mobility Environmental factors: multi-level home The following co-morbidities (from this admission or prior) influence the patient's participation in this plan of care: PA, CABG. Number of History elements affecting this patient's PT plan of care: 1-2 Examination of Body Systems: The patient presents with impairments of none on evaluation. These impairments result in limitations of none on evaluation. These impairments result in restrictions of none on evaluation. Number of Body Systems elements affecting this patient's PT plan of care: none on evaluation Clinical Presentation: The patient's clinical presentation for this PT evaluation is evolving as evidenced by current PT documentation. Activity Tolerance Activity Tolerance: Tolerates 10 - 20 min activity with multiple rests Therapy Precautions General Rehab Precautions: Sternal Balance Skilled Intervention: no LOB with gait Bed Mobility Skilled Intervention: NA Transfers Sit to Stand: Stand by assistance Gait/Locomotion Gait Assistance: Stand by assistance Assistive Device: None Distance: 150 Feet Stair Management Technique: One rail R, Step to pattern, Forwards(maintaining sternal precautions) Stair Management Assistance: Contact guard Number of Stairs: 7 Home Living Type of Home: House Home Layout: Two level, Able to live on main level with bedroom/bathroom, Stairs to enter with rails Bathroom Shower/Tub: Tub/shower unit Bathroom Toilet: Standard Prior Level of Function Level of [place]: Independent with ADLs and functional transfers, Independent with homemaking with ambulation Lives With: Spouse ADL Assistance: Independent Homemaking Assistance: ( completed cooking and laundry tasks.) 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 Bev Tolentino Metabolic syndrome Mood disorder ([facility]) Nasal fracture Obstructive sleep apnea noncompliant with CPAP Orthostatic dizziness with intermittent syncope Pericarditis 02/25/07; 09/23/17 Pneumomediastinum ([facility]) 01/12/2007 secondary to severe coughing spell & ruptured alveoli Rotator cuff tear, right 1998 s/p repair SLAP tear of shoulder 2011 left - s/p surgery to place [address] elevation myocardial infarction (STEMI) of anterolateral wall ([facility]) 05/09/2012 anterolateral STEMI involving left anterior descending coronary artery ([facility]) 09/25/2014 anterior Superficial thrombophlebitis of right upper extremity 12/26/2006 Past Surgical History: Procedure Laterality Date APPENDECTOMY 1998 BONE MARROW BIOPSY W/ ASPIRATION Left 11/27/2016 L posterior iliac crest; Dr. Bev Tolentino CABG OFF PUMP N/A 01/24/2019 Procedure: Coronary Artery Bypass graft x1 with Left Internal Mammary Artery graft, OFF PUMP; Surgeon: Neo Mcneil MD; Location: [facility] OR; Service: Cardiothoracic CARDIAC CATHETERIZATION 09/24/2014 Segment LV dysf., mild to moderate LV systolic impairment, moderate LV diastolic dysf.; single vessel CAD by Dr. Whitney CARDIAC CATHETERIZATION 05/09/2012 Emergent. Severe LVSD EF 20%; single vessel CAD with acute thrombotic occlusion of left anterior descending by Dr. Rowland CARDIAC CATHETERIZATION Left 09/28/2015 Dr. Rowland Predominant single vessel CAD w/ no angiographic evidence of restenosis within Intervened upon segment LAD, reidentification of high grade small caliber jailed diagonal disease. Normal LV end-diastolic pressure. CARDIAC CATHETERIZATION 01/14/[address] Phillips CARDIAC CATHETERIZATION 11/24/[address] Rowland COLONOSCOPY 05/27/2015 CORONARY ANGIOPLASTY 12/25/2014 PCI with balloon angioplasty by Dr. Whitney of jailed diagonal CORONARY STENT PLACEMENT 05/09/2012 Drug eluted Alpine stent in the left anterior descending by Dr. Rowland CORONARY STENT PLACEMENT 09/24/2014 Subacute stent thrombosis by Dr. Whitney. This may be in the setting of areas of restenosis within the LAD stent ETHMOIDECTOMY Bilateral 06/25/[address] Gaitan LEFT HEART CATH N/A 01/20/2019 Procedure: Left Heart Cath; Surgeon: Carlo Mercedes MD; Location: [facility]; Service: Cardiovascular IABP placement 05/09/[address] Rowland NASAL SEPTUM SURGERY 06/25/[address] Gaitan ROTATOR CUFF REPAIR Right 1997 SHOULDER ARTHROSCOPY W/ SUPERIOR LABRAL ANTERIOR POSTERIOR REPAIR Left 11/2012 @ [facility] SHOULDER ARTHROSCOPY W/ SUPERIOR LABRAL ANTERIOR POSTERIOR REPAIR Left 11/22/2011 shoulder arthroscopic anterior capsulorraphy, SLAP repair, acromioplasty, limited debridement of labrum and rotator cuff by Dr. Sexton SINUSOTOMY Bilateral 06/25/2007 with removal of tissue by Dr. Gaitan UPPER GASTROINTESTINAL ENDOSCOPY 2015 For complete objective data, detailed plan of care and patient education refer to: PT EVALUATION flow sheet, PT TREATMENT flow sheet, patient Plan of Care, Plan of Care progress note, and Patient Education. This note stands as the current Discharge Summary upon patient discharge from the hospital or completion of Physical Therapy Plan of Care. Associated Order(s): IP CONSULT TO [facility] Met with patient for Diabetes self management education. A1C: 6.5%. Pt newly diagnosed with T2DM with this hospital stay. Discussed normal, diagnostic criteria, and goal. Diabetes home medications: Currently only on correction doses with Humalog insulin. No current plans noted for oral diabetes medication. Pt is aware of this. Ordered medications while in hospital: Humalog correction doses if needed. Learning needs: Pt states his has diabetes and he knows how to do SMBG. Discussed the effects of stress on blood sugar and the body's ability to heal. Provided with a diary for blood sugar results. Discussed SMBG including times to test, how to record and when to contact Dr. Fernandez, normal blood sugar levels, target levels for control, s/s, treatment and prevention of hypoglycemia, the importance of a healthy diet and exercise. Discussed resources on MyChart. Support person: Pt's Dietary education: Per dietitian Physical activity: Pt states he doesn't go to a gym but is normally physically active. Plans to go to cardiac rehab. Discussed the importance of exercise to help keep blood sugar under control. Blood glucose monitoring: See above Hypoglycemia & Hyperglycemia: See above Barriers: None Handouts: A1C, Target Levels, Hyperglycemia, Hypoglycemia, Blood sugar diary, Diabetes and You. Occupational Therapy OCCUPATIONAL THERAPY EVALUATION NOTE Skilled Therapy Needs After Discharge Are Skilled Therapy Services Needed After Discharge: No DME Recommendation: None Rehab Potential: Excellent Outcomes Measures Prior Function Daily Activity: Raw Score: 24 Prior Function Daily Activity % Impaired: 0% functionally impaired AM-PAC Daily Activity: Raw Score: 19 AM-PAC Daily Activity % Impaired: 42.80% functionally impaired Occupational Therapy Assessment The patient presents with musculoskeletal and cardiopulmonary impairment(s) in generalized debility which create performance deficits including strength, balance and activity tolerance, and knowledge deficit. These performance impairments limit participation in UE dressing, LE dressing, bathing, job duties and functional mobility in the chosen occupational roles of premorbid level individual and employee. The patient's co morbidities do affect patient performance in the above activities and roles. The patient's home setup is a barrier and family/caregiver support is a rug dyer helper for return to prior level of function. The patient's education level is a rug dyer helper and awareness of own capacity and performance is a rug dyer helper to return to prior level of function. During the assessment, minimal to moderate modification of task was required and multiple treatment options were identified in the plan of care. This consultation required extensive review of the medical and therapy history. Medical Diagnosis: Chest Pain; CAD; s/p CABG x1 on 01/24/19. UE Function: Bilateral UE AROM to WFL and tested within current restrictions of sternal precautions; bilateral gross grasp about 5/5; other UE strength not tested due to pt with sternal precautions. Activity Tolerance Activity Tolerance: Tolerates 10 - 20 min activity with multiple rests(Min SOB w/some exertion; no O2 being worn.) Therapy Precautions General Rehab Precautions: Strict sternal, Fall risk Ambulate with Assistance Cognition Overall Cognitive Status: Within Functional Limits Arousal/Alertness: Appropriate responses to stimuli Orientation Level: Oriented to place, Oriented to time, Oriented to person Attention: Attends to quiet environment Hearing Status: WFL Social Interaction: WFL ADL/IADL Grooming : Modified independence(Oral care/face washing in standing at sink; min SOB w/tasks.) LE Dressing: Mod(Able to doff socks/dependent to don; to assist at home.) Bed Mobility Supine to Sit: Min(HOB elevated.) Functional Transfers Sit to Stand: Contact guard(No device.) Toilet Transfers: Contact Guard(High toilet with platform for step.) Skilled Intervention: Independent with EOB sitting; able to stand at sink and perform grooming tasks given set-up without LOB observed. Interventions Pt educated on sternal precautions and appropriate use of heart hugger - reinforcement education would be beneficial for carry-over to functional tasks upon discharge to home; pt advised to shower when is present at home and to carry phone at all times when home alone for safety purposes; OT reviewed techniques for UB dressing while abiding by sternal precautions and pt indicated understanding. 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 Past Medical History: Diagnosis Date Acute respiratory failure (HCC) 09/2014 requring mechanical ventilation Anxiety Bilateral lower extremity edema R > L CAD (coronary artery disease) CAD s/p [facility] with 1 stent in left main 07/2012, replaced 09/2014 Cardiac arrest with ventricular fibrillation ([facility]) 09/25/2014 CHF (congestive heart failure), NYHA class I, chronic, diastolic ([facility]) Chronic sinusitis Claudication of right lower extremity ([facility]) Cluster headache COPD (chronic obstructive pulmonary disease) ([facility]) 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 Bev Tolentino Metabolic syndrome Mood disorder ([facility]) Nasal fracture Obstructive sleep apnea noncompliant with CPAP Orthostatic dizziness with intermittent syncope Pericarditis 02/25/07; 09/23/17 Pneumomediastinum ([facility]) 01/12/2007 secondary to severe coughing spell & ruptured alveoli Rotator cuff tear, right 1997 s/p repair SLAP tear of shoulder 2011 left - s/p surgery to place [address] elevation myocardial infarction (STEMI) of anterolateral wall ([facility]) 05/09/2012 anterolateral STEMI involving left anterior descending coronary artery ([facility]) 09/25/2014 anterior Superficial thrombophlebitis of right upper extremity 12/26/2006 Past Surgical History: Procedure Laterality Date APPENDECTOMY 1998 BONE MARROW BIOPSY W/ ASPIRATION Left 11/27/2016 L posterior iliac crest; Dr. Bev Tolentino CABG OFF PUMP N/A 01/24/2019 Procedure: Coronary Artery Bypass graft x1 with Left Internal Mammary Artery graft, OFF PUMP; Surgeon: Noe Mcneil MD; Location: Main OR; Service: Cardiothoracic CARDIAC CATHETERIZATION 09/24/2014 Segment LV dysf., mild to moderate LV systolic impairment, moderate LV diastolic dysf.; single vessel CAD by Dr. Whitney CARDIAC CATHETERIZATION 05/09/2012 Emergent. Severe LVSD EF 20%; single vessel CAD with acute thrombotic occlusion of left anterior descending by Dr. Rowland CARDIAC CATHETERIZATION Left 09/28/2015 Dr. Rowland Predominant single vessel CAD w/ no angiographic evidence of restenosis within Intervened upon segment LAD, reidentification of high grade small caliber jailed diagonal disease. Normal LV end-diastolic pressure. CARDIAC CATHETERIZATION 01/14/[address] Phillips CARDIAC CATHETERIZATION 11/24/[address] Rowland COLONOSCOPY 05/27/2015 CORONARY ANGIOPLASTY 12/25/2014 PCI with balloon angioplasty by Dr. Whitney of jailed diagonal CORONARY STENT PLACEMENT 05/09/2012 Drug eluted Alpine stent in the left anterior descending by Dr. Rowland CORONARY STENT PLACEMENT 09/24/2014 Subacute stent thrombosis by Dr. Whitney. This may be in the setting of areas of restenosis within the LAD stent ETHMOIDECTOMY Bilateral 06/25/[address] Gaitan HC LEFT HEART CATH N/A 01/20/2019 Procedure: Left Heart Cath; Surgeon: Carlo Mercedes MD; Location: [facility]; Service: Cardiovascular IABP placement 05/09/[address] Rowland NASAL SEPTUM SURGERY 06/25/[address] Gaitan ROTATOR CUFF REPAIR Right 1997 SHOULDER ARTHROSCOPY W/ SUPERIOR LABRAL ANTERIOR POSTERIOR REPAIR Left 11/2012 @ [facility] SHOULDER ARTHROSCOPY W/ SUPERIOR LABRAL ANTERIOR POSTERIOR REPAIR Left 11/22/2011 shoulder arthroscopic anterior capsulorraphy, SLAP repair, acromioplasty, limited debridement of labrum and rotator cuff by Dr. Sexton SINUSOTOMY Bilateral 06/25/2007 with removal of tissue by Dr. Gaitan UPPER GASTROINTESTINAL ENDOSCOPY 2016 For complete objective data, detailed plan of care and patient education refer to: OT EVALUATION flow sheet, OT TREATMENT flow sheet, patient Plan of Care, Plan of Care progress note, and Patient Education. This note stands as the current Discharge Summary upon patient discharge from the hospital or completion of Occupational Therapy Plan of Care. Associated Order(s): IP CONSULT TO DIETITIAN Nutrition Care Follow Up Monitoring and Evaluation: Pt continues to have questions regarding diet education Nutrition Diagnosis: Inconsistent carbohydrate intake related to recent dx DM as evidenced by HgbA1C 6.5. Not Resolved Nutrition Intervention: Initiate Nutrition Education Nutrition Prescription: Diet: DM cardiac Nutrition Goals: Able to verbalize understanding of education provided Start Date:01/27/2019 Expected End Date:02/02/2019 Nutrition Education: initiate DM cardiac diet teaching Assessment: Pertinent clinical information: post CABG(01/24); new dx DM Current weight: 113.4 kg (250 lb) Body mass index is 40.18 kg/m . Weight: fluid+- Current diet order: DM cardiac Recent intake: 75%. Current intake Likely meets estimated needs. Patient/family comments: new dx DM Difficulty Chewing/Swallowing: No Skin Integrity: Surgical incision GI Function: WNL Physical Appearance: no change from initial assessment Labs: Recent Labs 01/27/19 0418 01/27/19 0605 NA -- 131* K -- 4.5 BICARB -- 23 CL -- 97* GLUCOSE -- 123* BUN -- 43* CREATININE -- 3.10* MG 2.4 -- Scheduled Meds: aspirin 81 mg Oral Daily atorvastatin 20 mg Oral at bedtime bisacodyl 10 mg Rectal Daily budesonide-formoterol 2 puff Inhalation BID clopidogrel 75 mg Oral Daily docusate sodium 100 mg Oral Daily enoxaparin (LOVENOX) injection 40 mg Subcutaneous BID ferrous sulfate 325 mg Oral TID with meals insulin lispro 0-20 Units Subcutaneous at bedtime insulin lispro 0-30 Units Subcutaneous TID AC pantoprazole 40 mg Oral BID sodium chloride (PF) 5 mL Intravenous Q8H JUVENCIO Continuous Infusions: dextrose 5 % and sodium chloride 0.45 % EPINEPHrine infusion insulin regular - Open Heart, Protocol 1 IVP Bolus sodium chloride 0.9 % sodium chloride 0.9 % Stopped (01/24/19 1710) sodium chloride sodium chloride Estimated Energy Needs Total Energy Estimated Needs: 2200kcal Method for Estimating Needs: 25kcal/kg adj Total Protein Estimated Needs: 80-90gm Method for Estimating Needs: 1.0gm/kg adj Fluid Needs Total Fluid Estimated Needs: per MD Kaden Mathis, MS, RDN, LD Office Associated Order(s): IP CONSULT TO DIETITIAN Nutrition Care Follow Up Monitoring and Evaluation: planned CABG Nutrition Diagnosis: Inconsistent carbohydrate intake related to food choices as evidenced by HgbA1C. Not Resolved Nutrition Intervention: Initiate Nutrition Education Nutrition Prescription: Diet: DM cardiac Nutrition Goals: Able to verbalize understanding of education provided Start Date:01/22/2019 Expected End Date:01/28/2019 Nutrition Education: follow with diet teaching post op CABG Assessment: Pertinent clinical information: planned CABG(01/24) Current weight: 115.4 kg (254 lb 6.6 oz) Body mass index is 39.85 kg/m . Weight: stable, fluid+ Current diet order: DM cardiac Recent intake: 75%. Current intake Likely meets estimated needs. Difficulty Chewing/Swallowing: No Skin Integrity: Intact GI Function: WNL Physical Appearance: no signs or symptoms of malnutrition Labs: Recent Labs 01/22/19 0527 NA 135 K 3.9 BICARB 25 CL 102 GLUCOSE 125* BUN 26* CREATININE 1.23 Scheduled Meds: aspirin 81 mg Oral Daily atorvastatin 20 mg Oral at bedtime budesonide-formoterol 2 puff Inhalation BID carvedilol 25 mg Oral BID with meals furosemide 20 mg Intravenous Q8H JUVENCIO ipratropium-albuterol 3 mL Nebulization Q6H JUVENCIO lisinopril 10 mg Oral Daily with lunch mupirocin Nasal BID nitroGLYCERIN 1 inch Topical Q6H pantoprazole 40 mg Oral Daily potassium chloride SA 10 mEq Oral Daily rOPINIRole 2 mg Oral Nightly varenicline 1 mg Oral BID Continuous Infusions: heparin infusion (weight based dosing) 15 Units/kg/hr (01/22/19 0709) heparin Estimated Energy Needs Total Energy Estimated Needs: 2200kcal Method for Estimating Needs: 25kcal/kg adj Total Protein Estimated Needs: 80-90gm Method for Estimating Needs: 1.0gm/kg adj Fluid Needs Total Fluid Estimated Needs: per MD Kaden Mathis MS, RDN, LD Office Associated Order(s): IP CONSULT TO VASCULAR SURGERY CONSULT NOTE Patient Name: Fernando Helton Admit Date: [id number] MR #: [id number] : 1970 Physicians: Moises Patel MD (Family); No ref. provider found (referring) Assessment and Plan: PAD (peripheral artery disease) ([facility]) Assessment & Plan Vascular was consulted regarding patient's PAD. This patient states that he has been having claudication symptoms in the right lower extremity for approximately 2 years. He admits that he has right leg pain when he stands for long periods of time or when he ambulates approximately 200 feet. He states that previously several physicians have noticed that he had an absent DP to the right however there was no follow- up on this. He has an extensive history of CAD with multiple interventions. During left heart catheterization yesterday 01/20/2019, Dr. Mercedes was unable to get the wire to cross the right external iliac artery leading to suspicion of atherosclerotic occlusion. This pt does have a history of nicotine dependence however, he state that he quit smoking approximately 7 to 8 months ago. Upon examination today patient has strong palpable pulses to left DP and bilateral PT. I was unable to palpate the right DP. He triphasic doppler signals to left DP and bilateral PT. Right DP is absent. There is no wounds to right lower extremity present. There is no ischemic changes the right lower extremity. His PAD appears chronic in nature. DERECK today: Right DERECK 1.26, TBI 1.08 and Left DERECK 1.33, TBI 1.12 Recommendations: This study has normal right leg DERECK and an unknown left leg DERECK due to non-compressibility as seen arterial calcification. Waveforms are satisfactory and triphasic at the ankles(though slightly stronger in the left leg compared to the right leg). Clinical correlation advised. Left heart catheterization 01/20/[address] Acosta Single-vessel coronary artery disease In-stent occlusion of LAD and mid segment Moderate LV systolic dysfunction with hypokinesis of mid to distal anterior wall Elevated LVEDP of 32 mmHg -Patient scheduled for CABG with Dr. Saavedra 01/24/2019 -We would recommend vein harvest from left leg if at all possible. If right leg is needed we would recommend harvesting vein in the proximal right lower extremity. -We will follow with Fernando in the office -Continue smoking cessation, high intensity statin, plavix, ASA Chief Complaint/Reason for Visit: Chest pain History of Present Illness: Fernando Helton is a 48 y.o. 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 Bev Tolentino Metabolic syndrome Mood disorder (HCC) Nasal fracture Obstructive sleep apnea noncompliant with CPAP Orthostatic dizziness with intermittent syncope Pericarditis 02/25/07; 09/23/17 Pneumomediastinum (HCC) 01/12/2007 secondary to severe coughing spell & ruptured alveoli Rotator cuff tear, right 1998 s/p repair SLAP tear of shoulder 2011 left - s/p surgery to place [address] elevation myocardial infarction (STEMI) of anterolateral wall ([facility]) 05/09/2012 anterolateral STEMI involving left anterior descending coronary artery ([facility]) 09/25/2014 anterior Superficial thrombophlebitis of right upper extremity 12/26/2006 Past Surgical History: Procedure Laterality Date APPENDECTOMY 1998 BONE MARROW BIOPSY W/ ASPIRATION Left 11/27/2016 L posterior iliac crest; Dr. Bev Tolentino CARDIAC CATHETERIZATION 09/24/2014 Segment LV dysf., mild to moderate LV systolic impairment, moderate LV diastolic dysf.; single vessel CAD by Dr. Whitney CARDIAC CATHETERIZATION 05/09/2012 Emergent. Severe LVSD EF 20%; single vessel CAD with acute thrombotic occlusion of left anterior descending by Dr. Rowland CARDIAC CATHETERIZATION Left 09/28/2015 Dr. Rowland Predominant single vessel CAD w/ no angiographic evidence of restenosis within Intervened upon segment LAD, reidentification of high grade small caliber jailed diagonal disease. Normal LV end-diastolic pressure. CARDIAC CATHETERIZATION 01/14/[address] Phillips CARDIAC CATHETERIZATION 11/24/[address] Rowland COLONOSCOPY 05/27/2015 CORONARY ANGIOPLASTY 12/25/2014 PCI with balloon angioplasty by Dr. Whitney of jailed diagonal CORONARY STENT PLACEMENT 05/09/2012 Drug eluted Alpine stent in the left anterior descending by Dr. Rowland CORONARY STENT PLACEMENT 09/24/2014 Subacute stent thrombosis by Dr. Whitney. This may be in the setting of areas of restenosis within the LAD stent ETHMOIDECTOMY Bilateral 06/25/[address] Gaitan IABP placement 05/09/[address] Rowland NASAL SEPTUM SURGERY 06/25/[address] Gaitan ROTATOR CUFF REPAIR Right 1997 SHOULDER ARTHROSCOPY W/ SUPERIOR LABRAL ANTERIOR POSTERIOR REPAIR Left 11/2012 @ [facility] SHOULDER ARTHROSCOPY W/ SUPERIOR LABRAL ANTERIOR POSTERIOR REPAIR Left 11/22/2011 shoulder arthroscopic anterior capsulorraphy, SLAP repair, acromioplasty, limited debridement of labrum and rotator cuff by Dr. Sexton SINUSOTOMY Bilateral 06/25/2007 with removal of tissue by Dr. Gaitan UPPER GASTROINTESTINAL ENDOSCOPY 2016 Family History Problem Relation Age of Onset Heart attack Father Heart disease Father s/p cabg x 4 in his 40s Coronary artery disease Father Hypertension Father Hyperlipidemia Father Heart disease Mother Stroke Mother 64 Hyperlipidemia Mother Coronary artery disease Other Cancer Paternal Uncle unknown cancer Hypertension Sister Diabetes Brother Heart disease Brother s/p PCI Melanoma Brother Social History Socioeconomic History Marital status: Spouse name: Not on file Number of children: 3 Years of education: Not on file Highest education level: Not on file Occupational History Not on file Social Needs Financial resource strain: Not on file Food insecurity Worry: Not on file Inability: Not on file Transportation needs Medical: Not on file Non-medical: Not on file Tobacco Use Smoking status: Former Smoker Packs/day: 1.00 Years: 35.00 Pack years: 35.00 Last attempt to quit: 05/12/2016 Years since quittin.6 Smokeless tobacco: Never Used Tobacco comment: Quit Substance and Sexual Activity Alcohol use: Yes Alcohol/week: 0.0 standard drinks Comment: socially Drug use: Not Currently Types: Marijuana Sexual activity: Not on file Lifestyle Physical activity Days per week: Not on file Minutes per session: Not on file Stress: Not on file Relationships Social connections Talks on phone: Not on file Gets together: Not on file Attends pentecostal service: Not on file Active member of club or organization: Not on file Attends meetings of clubs or organizations: Not on file Relationship status: Not on file Other Topics Concern Not on file Social History Narrative Not on file Allergy Information: I have reviewed the patient's allergies. Imdur [isosorbide mononitrate] Home Medications: Outpatient Medications as of 01/17/2019 Medication Sig aspirin 81 MG EC tablet Take 81 mg by mouth daily. atorvastatin (LIPITOR) 20 MG tablet Take 1 (one) tablet (20 mg total) by mouth daily . budesonide-formoterol (Symbicort) 160-4.5 mcg/actuation inhaler Inhale 2 puffs 2 (two) times a day . carvedilol (COREG) 25 MG tablet Take 1 (one) tablet (25 mg total) by mouth 2 (two) times a day with meals . furosemide (LASIX) 40 MG tablet Take 1 (one) tablet (40 mg total) by mouth daily . ipratropium-albuterol (DUO-NEB) 0.5-2.5 mg/3 ml nebulizer Take 3 mL by nebulization every 6 (six) hours . omeprazole (PRILOSEC) 40 MG capsule Take 40 mg by mouth daily prasugrel (EFFIENT) 10 mg tablet Take 1 (one) tablet (10 mg total) by mouth daily . rOPINIRole (REQUIP) 2 MG tablet Take 2 mg by mouth nightly. varenicline (CHANTIX) 1 mg tablet Take 1 mg by mouth 2 (two) times a day . enalapril (VASOTEC) 5 MG tablet TAKE 1 TABLET(5 MG) BY MOUTH TWICE DAILY hydroCHLOROthiazide (HYDRODIURIL) 25 MG tablet Take 1 (one) tablet (25 mg total) by mouth daily . potassium chloride SA (K-DUR,KLOR-CON) 10 MEQ tablet TAKE 1 TABLET(10 MEQ) BY MOUTH TWICE DAILY Review of Systems: The following system(s) were reviewed and pertinent findings noted: Constitutional: No acute distress CV: Right leg claudication with distance of 200 ft or standing for long periods of time Respiratory: Denies SOB Physical Examination: Vital Signs: BP 121/81 Pulse 67 Temp 98 F (36.7 C) (Oral) Resp 14 Ht 5' 7 Wt 116.6 kg (257 lb) SpO2 96% BMI 40.25 kg/m CV: Left DP and b/l PT 2+ with triphasic doppler signals, Right DP non-palpable and absent doppler signal Laboratory and Additional Data Reviewed: Lab Results Component Value Date WBC 11.28 (H) 01/21/2019 HGB 14.2 01/21/2019 HCT 43.6 01/21/2019 MCV 84.7 01/21/2019 EXTMCV 84.5 01/09/2018 PLT 267 01/21/2019 RBC 5.15 01/21/2019 Lab Results Component Value Date GLUCOSE 116 (H) 01/21/2019 CALCIUM 9.1 01/21/2019 NA 135 01/21/2019 K 4.0 01/21/2019 CL 102 01/21/2019 BUN 22 01/21/2019 CREATININE 1.11 01/21/2019 Lab Results Component Value Date HGBA1C 6.5 (H) 01/20/2019 Associated attestation - Devendra Freitas III, DO - 01/21/2019 2:00 PM EST Discussion was held with Uma White NP, and I agree with dictated consultation. Associated Order(s): IP CONSULT TO ENDOCRINOLOGY Patient ID: Patient Name: Fernando Helton Admit Date: 01/17/2019 MR #: [id number] : 1970 Current location: [facility] Physicians: Moises Patel MD (Family); Kristin BARCENAS (Referring) Reason for consult: Type 2 diabetes New diagnosis Assessment/Plan: Dx: Type 2 diabetes, under good control Currently taking as outpatient: No oral hypoglycemic medications Current Hemoglobin A1C= 6.5% 01/20/19 Lab Results Component Value Date HGBA1C 6.5 (H) 01/20/2019 NOTES: 01/21: BG reviewed since admission. Patient presented to the hospital with chest pain and underwent heart cath 01/20. Stent to LAD is occluded and the patient will need CABG surgery. CT surgery has seen the patient and plan is to move forward with surgery on Sunday. Patient has not had any diabetes treatment during this hospital stay as he was just found to have an elevated A1C., of 6.5%. Patient has never been told he has diabetes. Blood Glucoses: 01/20: 134 (from Chemistry 01/20 AM) 01/21: 116 (from Chemistry this AM) Plan: 1. Rx changes: see below Adjust diet to CHO controlled Check BG QAC/HS. 2. Education: Reviewed ABCs of diabetes management (respective goals in parentheses): A1C (7.0-8.0), blood pressure (<130/80), and cholesterol (LDL <100). Referral to Diabetes Education Referral to Nutrition therapy Subjective: Brief HPI: Mr. Helton is a 48-year-old male patient presented to the emergency department on 01/20/2019 for complaints of chest pain. His initial evaluation was negative however he was admitted the hospital for further observation/management. Patient was seen and evaluated by cardiology and subsequently underwent a cardiac catheterization on 01/20/2019. Patient was found to have an occluded LAD stent, that had been previously placed about 3 to 4 years ago. He was referred to CT surgery for bypass graft surgery in the near future. CT surgery came to evaluate the patient and ordered a hemoglobin A1c. He was found to have a hemoglobin A1c of 6.5%, and is also been noted to have 2 elevated blood sugar values during his hospital stay. Endocrinology was consulted to further evaluate the patient and provide further treatment recommendations. Patient reports he is never been told he has diabetes. He is also never been told he even had impaired fasting blood glucose. He reports that his maternal family has a history of type 2 diabetes, especially in his uncle. The patient reports he drinks regular pop, at least 2 cans of Pepsi every day. He has been drinking more than that until recently he cut down. He does typically avoid concentrated sweets. The patient also suffers from coronary artery disease, hypertension and hyperlipidemia. He also suffers from ischemic systolic heart failure and is followed by Pallavi David clinical nurse specialist in our heart failure clinic. Patient suffers from COPD and sleep apnea and is supposed to be wearing a CPAP however he is now always compliant with. Again upon further evaluation the patient was found to have an elevated hemoglobin A1c of 6.5% on 01/20/2019. Complications of diabetes include: Retinopathy: Negative Nephropathy: Negative Peripheral Neuropathy: Negative Autonomic Neuropathy: Negative Allergies: Allergies Allergen Reactions Imdur [Isosorbide Mononitrate] Caused severe headache and had to stop it. Home Medications: Outpatient Medications Marked as Taking for the 01/17/19 encounter (Hospital Encounter): albuterol 90 mcg/actuation inhaler, Inhale 2 puffs every 6 (six) hours as needed for wheezing or shortness of breath . aspirin 81 MG EC tablet, Take 81 mg by mouth daily. atorvastatin (LIPITOR) 20 MG tablet, Take 1 (one) tablet (20 mg total) by mouth daily . budesonide-formoterol (Symbicort) 160-4.5 mcg/actuation inhaler, Inhale 2 puffs 2 (two) times a day . carvedilol (COREG) 25 MG tablet, Take 1 (one) tablet (25 mg total) by mouth 2 (two) times a day with meals . enalapril (VASOTEC) 5 MG tablet, Take 5 mg by mouth 2 (two) times a day . furosemide (LASIX) 40 MG tablet, Take 1 (one) tablet (40 mg total) by mouth daily . ipratropium-albuterol (DUO-NEB) 0.5-2.5 mg/3 ml nebulizer, Take 3 mL by nebulization every 6 (six) hours . omeprazole (PRILOSEC) 40 MG capsule, Take 40 mg by mouth daily potassium chloride (K-DUR) 10 MEQ CR tablet, Take 10 mEq by mouth 2 (two) times a day . prasugrel (EFFIENT) 10 mg tablet, Take 1 (one) tablet (10 mg total) by mouth daily . rOPINIRole (REQUIP) 2 MG tablet, Take 2 mg by mouth nightly. varenicline (CHANTIX) 1 mg tablet, Take 1 mg by mouth 2 (two) times a day . Current Medications: aspirin 81 mg Oral Daily atorvastatin 20 mg Oral at bedtime budesonide-formoterol 2 puff Inhalation BID carvedilol 25 mg Oral BID with meals furosemide 20 mg Intravenous Q8H JUVENCIO ipratropium-albuterol 3 mL Nebulization Q6H JUVENCIO lisinopril 10 mg Oral Daily with lunch mupirocin Nasal BID nitroGLYCERIN 1 inch Topical Q6H pantoprazole 40 mg Oral Daily potassium chloride SA 10 mEq Oral Daily rOPINIRole 2 mg Oral Nightly varenicline 1 mg Oral BID acetaminophen, albuterol, atropine, LORazepam, ondansetron, perflutren lipid microspheres, sodium chloride 0.9%, zolpidem Review of Systems: Review of Systems Constitutional: Negative for appetite change, fatigue and unexpected weight change. HENT: Negative. Eyes: Negative. Respiratory: Positive for chest tightness. Negative for shortness of breath (with activity ). Cardiovascular: Negative for chest pain and leg swelling. Gastrointestinal: Negative for abdominal pain, constipation, diarrhea, nausea and vomiting. Endocrine: Negative for cold intolerance, heat intolerance, polydipsia, polyphagia and polyuria. Genitourinary: Negative for frequency. Musculoskeletal: Negative for arthralgias and myalgias. Skin: Negative. Neurological: Negative for dizziness, tremors, weakness and headaches. Psychiatric/Behavioral: Negative. History: Past Medical History: Diagnosis Date Acute respiratory failure (HCC) 09/2014 requring mechanical ventilation Anxiety Bilateral lower extremity edema R > L CAD (coronary artery disease) CAD s/p LHC with 1 stent in left main 07/2012, replaced 09/2014 Cardiac arrest with ventricular fibrillation ([facility]) 09/25/2014 CHF (congestive heart failure), NYHA class I, chronic, diastolic ([facility]) Chronic sinusitis Claudication of right lower extremity ([facility]) Cluster headache COPD (chronic obstructive pulmonary disease) ([facility]) 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 Bev Tolentino Metabolic syndrome Mood disorder ([facility]) Nasal fracture Obstructive sleep apnea noncompliant with CPAP Orthostatic dizziness with intermittent syncope Pericarditis 02/25/07; 09/23/17 Pneumomediastinum ([facility]) 01/12/2007 secondary to severe coughing spell & ruptured alveoli Rotator cuff tear, right 1997 s/p repair SLAP tear of shoulder 2011 left - s/p surgery to place [address] elevation myocardial infarction (STEMI) of anterolateral wall ([facility]) 05/09/2012 anterolateral STEMI involving left anterior descending coronary artery ([facility]) 09/25/2014 anterior Superficial thrombophlebitis of right upper extremity 12/26/2006 Past Surgical History: Procedure Laterality Date APPENDECTOMY 1998 BONE MARROW BIOPSY W/ ASPIRATION Left 11/27/2016 L posterior iliac crest; Dr. Bev Tolentino CARDIAC CATHETERIZATION 09/24/2014 Segment LV dysf., mild to moderate LV systolic impairment, moderate LV diastolic dysf.; single vessel CAD by Dr. Whitney CARDIAC CATHETERIZATION 05/09/2012 Emergent. Severe LVSD EF 20%; single vessel CAD with acute thrombotic occlusion of left anterior descending by Dr. Rowland CARDIAC CATHETERIZATION Left 09/28/2015 Dr. Rowland Predominant single vessel CAD w/ no angiographic evidence of restenosis within Intervened upon segment LAD, reidentification of high grade small caliber jailed diagonal disease. Normal LV end-diastolic pressure. CARDIAC CATHETERIZATION 01/14/[address] Phillips CARDIAC CATHETERIZATION 11/24/[address] Rowland COLONOSCOPY 05/27/2015 CORONARY ANGIOPLASTY 12/25/2014 PCI with balloon angioplasty by Dr. Whitney of jailed diagonal CORONARY STENT PLACEMENT 05/09/2012 Drug eluted Alpine stent in the left anterior descending by Dr. Rowland CORONARY STENT PLACEMENT 09/24/2014 Subacute stent thrombosis by Dr. Whitney. This may be in the setting of areas of restenosis within the LAD stent ETHMOIDECTOMY Bilateral 06/25/[address] Gaitan IABP placement 05/09/[address] Rowland NASAL SEPTUM SURGERY 06/25/[address] Gaitan ROTATOR CUFF REPAIR Right 1997 SHOULDER ARTHROSCOPY W/ SUPERIOR LABRAL ANTERIOR POSTERIOR REPAIR Left 11/2012 @ [facility] SHOULDER ARTHROSCOPY W/ SUPERIOR LABRAL ANTERIOR POSTERIOR REPAIR Left 11/22/2011 shoulder arthroscopic anterior capsulorraphy, SLAP repair, acromioplasty, limited debridement of labrum and rotator cuff by Dr. Sexton SINUSOTOMY Bilateral 06/25/2007 with removal of tissue by Dr. Gaitan UPPER GASTROINTESTINAL ENDOSCOPY 2015 Family History Problem Relation Age of Onset Heart attack Father Heart disease Father s/p cabg x 4 in his 40s Coronary artery disease Father Hypertension Father Hyperlipidemia Father Heart disease Mother Stroke Mother 64 Hyperlipidemia Mother Coronary artery disease Other Cancer Paternal Uncle unknown cancer Hypertension Sister Diabetes Brother Heart disease Brother s/p PCI Melanoma Brother Social History Tobacco Use Smoking status: Former Smoker Packs/day: 1.00 Years: 35.00 Pack years: 35.00 Last attempt to quit: 05/12/2016 Years since quittin.6 Smokeless tobacco: Never Used Tobacco comment: Quit Substance Use Topics Alcohol use: Yes Alcohol/week: 0.0 standard drinks Comment: socially Drug use: Not Currently Types: Marijuana The following portions of the patient's history were reviewed and updated as appropriate: allergies, current medications, past family history, past medical history, past social history, past surgical history and problem list. Objective: BP 121/81 Pulse 67 Temp 98 F (36.7 C) (Oral) Resp 14 Ht 5' 7 Wt 116.6 kg (257 lb) SpO2 96% BMI 40.25 kg/m Wt Readings from Last 3 Encounters: 01/17/19 116.6 kg (257 lb) 01/04/19 113.4 kg (250 lb) 12/26/18 113.9 kg (251 lb) Physical Exam: Physical Exam Constitutional: He is oriented to person, place, and time. He appears well- developed and well-nourished. No distress. HENT: Head: Normocephalic and atraumatic. Mouth/Throat: Oropharynx is clear and moist. Eyes: Pupils are equal, round, and reactive to light. Conjunctivae and EOM are normal. Neck: Normal range of motion. Neck supple. No thyromegaly present. Cardiovascular: Normal rate, regular rhythm, normal heart sounds and intact distal pulses. Exam reveals no gallop and no friction rub. No murmur heard. Pulses: Dorsalis pedis pulses are 2+ on the right side and 2+ on the left side. Pulmonary/Chest: Effort normal and breath sounds normal. No respiratory distress. He has no wheezes. He has no rales. Abdominal: Soft. Bowel sounds are normal. He exhibits no distension. There is no abdominal tenderness. Musculoskeletal: Normal range of motion. General: No deformity or edema. Right foot: Normal. Normal range of motion. No swelling or deformity. Left foot: Normal. Normal range of motion. No swelling or deformity. Neurological: He is alert and oriented to person, place, and time. Skin: Skin is warm and dry. No rash noted. No erythema. Psychiatric: He has a normal mood and affect. His behavior is normal. Judgment and thought content normal. Laboratory Review: BP 121/81 Pulse 67 Temp 98 F (36.7 C) (Oral) Resp 14 Ht 5' 7 Wt 116.6 kg (257 lb) SpO2 96% BMI 40.25 kg/m Lab Results Component Value Date HGBA1C 6.5 (H) 01/20/2019 Glucose (mg/dL) Date Value 01/21/2019 116 (H) Creatinine (mg/dL) Date Value 01/21/2019 1.11 09/27/2018 1.0 01/09/2018 1.14 Lab Results Component Value Date CHOL 183 09/24/2014 TRIG 201 (A) 09/24/2014 HDL 34 (A) 09/24/2014 LDL 109 09/24/2014 Lab Results Component Value Date TSH 1.15 01/20/2019 T4, Free Date Value Ref Range Status 01/20/2019 1.0 0.7 - 1.7 ng/dL Final Lab Results Component Value Date WBC 11.28 (H) 01/21/2019 HGB 14.2 01/21/2019 HCT 43.6 01/21/2019 MCV 84.7 01/21/2019 PLT 267 01/21/2019 This SmartLink has not been configured with any valid records. This SmartLink has not been configured with any valid records. Laboratory and Additional Data Reviewed: Laboratory 01/21/19 11:54 AM Microbiology 01/21/19 11:54 AM Pathology 01/21/19 11:54 AM Cardiology 01/21/19 11:54 AM Medications 01/21/19 11:54 AM Thank you for this consultation, we will continue to follow this patient with you. Electronically signed by Denisse FLORES 01/21/1911:54 AM Denisse Clark CNP Associated Order(s): IP CONSULT TO CARDIOTHORACIC SURGERY CONSULTATION REPORT 01/21/19 Fernando Priyanka Helton PRIMARY CARE PHYSICIAN: Moises Patel MD REQUESTING PHYSICIAN: Dr. Carlo Mercedes REASON FOR CONSULTATION: Dr. Neo Mcneil has been asked to evaluate Mr. Fernando Helton for possible surgical revascularization of the heart. CHIEF COMPLAINT: Chest pain HISTORY OF PRESENT ILLNESS: Mr. Fernando Helton is a pleasant 48-year-old male with a past medical history of hypertension, hyperlipidemia, COPD, ISAC, morbid obesity, former tobacco abuse, CHF, myocardial infarctions, and known coronary artery disease status post multiple PCI's to the LAD, on chronic Eliquis for in-stent thrombosis, who presented to [facility] emergency department on 01/17/2019 with worsening chest pain. Mr. Helton admits to ongoing intermittent chest pain over the last 3-5 months with approximately daily episodes. The episodes occur spontaneously at rest and resolve within 20-60 minutes. Over the last few weeks, the left-sided chest pain has become more intense and started radiating to his left jaw. He describes the discomfort as stabbing, heavy, and tight with associated shortness of breath, lightheadedness, nausea, and diaphoresis. He states the symptoms are similar to his previous myocardial infarctions. Patient's states that he has been undergoing cardiac work-up since November for his complaints although everything comes back normal and they are frustrated. He presented as his symptoms became more frequent and intense. EKG revealed non-specific changes and cardiac troponins, d-dimer and BNP were within normal limits. Given his risk factors and ongoing unstable angina, he was admitted on a Heparin drip for further evaluation by cardiology. On 01/20/19, the patient was taken to the cardiac catheterization lab by Dr. Carlo Mercedes and was found to have single-vessel coronary artery disease with in-stent occlusion of the LAD and mid segment. Moderate LV systolic dysfunction with hypokinesis of the mid to distal anterior wall with an EF of 45%. In light of the cardiac catheterization results, Dr. Mercedes has asked Dr. Blake Mcneil to evaluate Mr. Fernando Helton for possible surgical revascularization of the heart. Currently, the patient complains of 2/10, nonradiating left-sided chest pain and denies any shortness of breath, diaphoresis, or nausea. PAST MEDICAL HISTORY: 1. Known coronary artery disease status post multiple stents to LAD 2. Essential hypertension 3. Hyperlipidemia 4. Chronic obstructive pulmonary disease 5. Obstructive sleep apnea noncompliant with CPAP 6. Morbid obesity with BMI greater than 40 per Medicare criteria 7. Former tobacco abuse 8. Anxiety disorder 9. Gastroesophageal reflux disease 10. Cluster headaches 11. Mood disorder 12. Metabolic syndrome 13. Chronic sinusitis 14. History of deviated septum 15. Internal hemorrhoids 16. Chronic bilateral lower extremity edema, right greater than left 17. Remote history of nasal fracture 18. Acute anterolateral STEMI on 05/09/2012 19. Acute anterior STEMI secondary to subacute LAD stent thrombosis on 09/24/2014- on chronic Effient, last dose 01/20/19 20. Cardiac arrest with ventricular fibrillation with ROSC on 09/24/2014 21. Acute respiratory failure requiring mechanical ventilation on 09/24/2014 22. Chronic diastolic congestive heart failure 23. Pneumomediastinum on 01/12/2007 CT secondary to severe coughing spell and ruptured alveoli 24. Pericarditis on 02/25/2007 and 09/23/2017 25. Right lower extremity claudication 26. Right cavernous hepatic lobe hemangioma 27. Superficial thrombophlebitis of the right forearm on 12/26/2006 28. Chronic orthostatic dizziness with witnessed syncopal episodes every month 29. Left groin lesion that intermittently produces malodorous white pus 30. Chronic leukocytosis with evaluation by Dr. Bev Tolentino in 11/2016 31. Unstable angina, on admission 32. Right external iliac artery stenosis, this admission 33. Newly diagnosed type 2 diabetes mellitus, this admission PAST SURGICAL HISTORY: Past Surgical History: Procedure Laterality Date APPENDECTOMY 1998 BONE MARROW BIOPSY W/ ASPIRATION Left 11/27/2016 L posterior iliac crest; Dr. Bev Tolentino CARDIAC CATHETERIZATION 09/24/2014 Segment LV dysf., mild to moderate LV systolic impairment, moderate LV diastolic dysf.; single vessel CAD by Dr. Whitney CARDIAC CATHETERIZATION 05/09/2012 Emergent. Severe LVSD EF 20%; single vessel CAD with acute thrombotic occlusion of left anterior descending by Dr. Rowland CARDIAC CATHETERIZATION Left 09/28/2015 Dr. Rowland Predominant single vessel CAD w/ no angiographic evidence of restenosis within Intervened upon segment LAD, reidentification of high grade small caliber jailed diagonal disease. Normal LV end-diastolic pressure. CARDIAC CATHETERIZATION 01/14/[address] Phillips CARDIAC CATHETERIZATION 11/24/[address] Rowland COLONOSCOPY 05/27/2015 CORONARY ANGIOPLASTY 12/25/2014 PCI with balloon angioplasty by Dr. Whitney of jailed diagonal CORONARY STENT PLACEMENT 05/09/2012 Drug eluted Alpine stent in the left anterior descending by Dr. Rowland CORONARY STENT PLACEMENT 09/24/2014 Subacute stent thrombosis by Dr. Whitney. This may be in the setting of areas of restenosis within the LAD stent ETHMOIDECTOMY Bilateral 06/25/[address] Gaitan IABP placement 05/09/[address] Rowland NASAL SEPTUM SURGERY 06/25/[address] Gaitan ROTATOR CUFF REPAIR Right 1997 SHOULDER ARTHROSCOPY W/ SUPERIOR LABRAL ANTERIOR POSTERIOR REPAIR Left 11/2012 @ [facility] SHOULDER ARTHROSCOPY W/ SUPERIOR LABRAL ANTERIOR POSTERIOR REPAIR Left 11/22/2011 shoulder arthroscopic anterior capsulorraphy, SLAP repair, acromioplasty, limited debridement of labrum and rotator cuff by Dr. Sexton SINUSOTOMY Bilateral 06/25/2007 with removal of tissue by Dr. Gaitan UPPER GASTROINTESTINAL ENDOSCOPY 2016 MEDICATIONS ON ADMISSION: Pre-Surgery Instructions: Medication Sig Taking? HOLD taking medications the morning of surgery if no directions are given below albuterol 90 mcg/actuation inhaler Inhale 2 puffs every 6 (six) hours as needed for wheezing or shortness of breath . Yes aspirin 81 MG EC tablet Take 81 mg by mouth daily. Yes atorvastatin (LIPITOR) 20 MG tablet Take 1 (one) tablet (20 mg total) by mouth daily . Yes budesonide-formoterol (Symbicort) 160-4.5 mcg/actuation inhaler Inhale 2 puffs 2 (two) times a day . Yes carvedilol (COREG) 25 MG tablet Take 1 (one) tablet (25 mg total) by mouth 2 (two) times a day with meals . Yes enalapril (VASOTEC) 5 MG tablet Take 5 mg by mouth 2 (two) times a day . Yes furosemide (LASIX) 40 MG tablet Take 1 (one) tablet (40 mg total) by mouth daily . Yes ipratropium-albuterol (DUO-NEB) 0.5-2.5 mg/3 ml nebulizer Take 3 mL by nebulization every 6 (six) hours . Yes omeprazole (PRILOSEC) 40 MG capsule Take 40 mg by mouth daily Yes potassium chloride (K-DUR) 10 MEQ CR tablet Take 10 mEq by mouth 2 (two) times a day . Yes prasugrel (EFFIENT) 10 mg tablet Take 1 (one) tablet (10 mg total) by mouth daily . Yes rOPINIRole (REQUIP) 2 MG tablet Take 2 mg by mouth nightly. Yes varenicline (CHANTIX) 1 mg tablet Take 1 mg by mouth 2 (two) times a day . Yes enalapril (VASOTEC) 5 MG tablet TAKE 1 TABLET(5 MG) BY MOUTH TWICE DAILY hydroCHLOROthiazide (HYDRODIURIL) 25 MG tablet Take 1 (one) tablet (25 mg total) by mouth daily . potassium chloride SA (K-DUR,KLOR-CON) 10 MEQ tablet TAKE 1 TABLET(10 MEQ) BY MOUTH TWICE DAILY ALLERGIES: Allergies: Imdur [isosorbide mononitrate] FAMILY HISTORY: Mother living at 71 years old with history of CVA. Father living with coronary artery disease status post CABG x4 and TIA. Patient has 1 sister with a central hypertension. One brother with diabetes mellitus, coronary artery disease status post PCI, hypertension, and melanoma. Family History Problem Relation Age of Onset Heart attack Father Heart disease Father s/p cabg x 4 in his 40s Coronary artery disease Father Hypertension Father Hyperlipidemia Father Heart disease Mother Stroke Mother 64 Hyperlipidemia Mother Coronary artery disease Other Cancer Paternal Uncle unknown cancer Hypertension Sister Diabetes Brother Heart disease Brother s/p PCI Melanoma Brother SOCIAL HISTORY: Patient resides in [place] in a two-story home with approximately 15 steps. He is on his second marriage for 9 years. The patient and his current have no children together but he has 3 children who live out of town and she has 2 sons. 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 He admits to previous tobacco abuse beginning at 13 years old smoking approximately 1 to 2 packs/day with cessation on May 12, 2018. He admits to drinking alcohol socially but denies any abuse. Patient denies any current illicit drug use but admits to smoking marijuana for quite some time; last use months ago . Social History Socioeconomic History Marital status: Spouse name: Not on file Number of children: 3 Years of education: Not on file Highest education level: Not on file Occupational History Not on file Social Needs Financial resource strain: Not on file Food insecurity Worry: Not on file Inability: Not on file Transportation needs Medical: Not on file Non-medical: Not on file Tobacco Use Smoking status: Former Smoker Packs/day: 1.00 Years: 35.00 Pack years: 35.00 Last attempt to quit: 05/12/2016 Years since quittin.6 Smokeless tobacco: Never Used Tobacco comment: Quit Substance and Sexual Activity Alcohol use: Yes Alcohol/week: 0.0 standard drinks Comment: socially Drug use: Not Currently Types: Marijuana Sexual activity: Not on file Lifestyle Physical activity Days per week: Not on file Minutes per session: Not on file Stress: Not on file Relationships Social connections Talks on phone: Not on file Gets together: Not on file Attends pentecostal service: Not on file Active member of club or organization: Not on file Attends meetings of clubs or organizations: Not on file Relationship status: Not on file Other Topics Concern Not on file Social History Narrative Not on file REVIEW OF SYMPTOMS: All systems have been reviewed and are negative except as noted above. Currently patient complains of 2/10 left-sided chest pain without radiation. He denies any shortness of breath, dizziness, diaphoresis, nausea. He admits to orthostatic dizziness that occurs quite frequently, right leg claudication, PND, and orthopnea. Otherwise, he denies any fevers, chills, nausea, diarrhea, or constipation. He denies any history of diabetes mellitus, thyroid conditions, TIA, CVA, PE, DVT, irritable bowel syndrome, GI bleed, or cancer. He denies any benign prostatic hypertrophy or difficulty starting or stopping his urinary stream. He does admit to nocturia (4 times nightly) even before being on diuretics. He admits to previous indwelling Rodriguez catheter placement without difficulty. Currently, he has a FemoStop to the left groin that is clean, dry, and intact. LABORATORY DATA: Recent Labs 01/19/19 0759 01/20/199 01/21/19 0607 NA 140 138 135 K 4.0 3.9 4.0 CL 108 106 102 BICARB 25 24 26 BUN 22 CREATININE 1.15 1.17 1.11 GLUCOSE 121* 134* 116* Recent Labs 01/19/19 1948 01/20/19 0419 01/20/19 1021 01/21/19 0607 WBC 14.77* 13.44* -- 11.28* HGB 13.8 13.6 14.1 14.2 HCT 41.6 41.2 43.1 43.6 PLT 258 259 -- 267 Recent Labs 01/20/19 1000 INR 1.0 No results for input(s): TROPONINI in the last 72 hours. Lab Results Component Value Date HGBA1C 6.5 (H) 01/20/2019 PHYSICAL EXAMINATION: VITAL SIGNS: BP 120/76 Pulse 70 Temp 97.6 F (36.4 C) (Oral) Resp 16 Ht 5' 7 Wt 116.6 kg (257 lb) SpO2 96% BMI 40.25 kg/m It should be noted, the patient will require an actual measured height and a digital scale weight to accurately calculate his body mass index per Medicare criteria. Physical Exam Constitutional: He is oriented to person, place, and time. He appears well- developed and well-nourished. No distress. Lying supine in bed with the head of the bed elevated and appears to be in no acute distress. HENT: Head: Normocephalic and atraumatic. Eyes: No scleral icterus. Neck: Neck supple. Carotid bruit is not present. Cardiovascular: Normal rate, regular rhythm and normal heart sounds. Exam reveals no gallop and no friction rub. No murmur heard. Pulmonary/Chest: Effort normal and breath sounds normal. No respiratory distress. He has no wheezes. He has no rales. He exhibits no tenderness. Abdominal: Soft. Bowel sounds are normal. He exhibits no distension. There is no abdominal tenderness. There is no rebound. Obese. Last bowel movement 01/19/19. Musculoskeletal: General: No tenderness or edema. Neurological: He is alert and oriented to person, place, and time. Skin: Skin is warm and dry. No rash noted. He is not diaphoretic. No cyanosis or erythema. No pallor. Nails show no clubbing. Healing cat scratches to xiphoid region. No erythema, edema, nor drainage. Large tattoo at the left anterior chest wall. ~1 in tubular pedicle lesion at the left groin; pinpoint opening present. No erythema, edema, nor drainage able to be expressed. Malodor from groin present. Otherwise, no other skin lesions, rashes or lymph nodes present. Pedal pulses are strong on the left but very faint on the right. Feet are warm to touch. Fem-stop to left groin present. Surrounding skin is soft and nontender to palpation. No erythema, edema, nor drainage noted. Psychiatric: He has a normal mood and affect. His behavior is normal. Vitals reviewed. ASSESSMENT: Mr. Fernando Helton is a 48-year-old male with an extensive cardiac history with known coronary artery disease status post multiple stents to the LAD and on chronic Effient for in-stent thrombosis. Over the last 3 to 5 months he has had unstable angina with radiation to his left jaw and associated shortness of breath, nausea, and diaphoresis. On 01/17/2019, patient presented to [facility] and was admitted for further evaluation by cardiology. On 01/20/2019, he was taken to the cardiac catheterization lab by Dr. Mercedes and found to have single-vessel coronary artery disease with in-stent occlusion of the LAD and mid segment. In light of the cardiac catheterization results, Dr. Neo Mcneil has been asked to evaluate Mr.Jason Helton for possible surgical revascularization of the heart. After Dr. Neo Mcneil has had the opportunity to review the patient's history, cardiac catheterization films, and the additional diagnostic studies, he will then give his opinion as to whether or not is a candidate for possible surgical revascularization of the heart. It should be noted the patient received Eliquis, last dose 01/20/19, and will require washout prior to proceeding with surgery. PLAN: In the meantime, the patient will undergo routine diagnostic testing for open heart surgery evaluation including arterial blood gases on room air and a PA and lateral chest x-ray. We will obtain carotid Doppler study with Dr. Emma Bueno to read, PFTs and ankle brachial indices. Additionally, we will obtain further laboratory studies and urinalysis for culture and sensitivity. We will check S. Aureus nasal swab and prophylactically treat with Bactroban and hibiclens. We will consult Dr. Fernandez for management and treatment of his newly diagnosed T2DM. We will consult vascular surgery for evaluation of presumed right external iliac stenosis based on Dr. Mercedes's catheterization report. Dr. Mcneil to meet with patient and family on 01/21/2019 at 12:[address] Mercedes for consulting our services. We look forward to participating in Mr. Helton care. Associated Order(s): IP CONSULT TO CARDIOLOGY Reason for consult-chest pain SUN'AQ-patient is a pleasant 48-year-old man with medical history significant for CAD status post PCI to LAD in 2012 for PA presentation-presented again in 2014 with in-stent restenosis-underwent PCI, past history of smoking (quit about 8 months ago), hypertension, dyslipidemia and obesity. Patient reports that for last about 3 to 5 months he has been having episodes of chest pain which he describes as a sensation similar to his pain prior to the heart attack. He reports that the frequency of the episodes has increased recently. In last 2 to 4 weeks he reports getting about 5-7 episodes a week. He describes a typical episode as a sensation of squeeze in the chest as if someone is giving him a tight hug -associated with feeling of nausea and shortness of breath. He says that the symptoms resolve after he sits down and typically takes about 15 to 30 minutes before he feels better. He also notes that occasionally this discomfort radiates to the left jaw. Does not report any radiation into the arms or belly. He presented with a similar episode yesterday-his serial biomarkers have been negative, EKG shows old anterolateral PA with mild ST-T changes, d-dimer is negative and BNP is not elevated. His most recent echocardiogram is from November 2018 which shows an EF of 45%. There was also a question about possible apical LV thrombus-subsequent MRI done on December 25-did not show any evidence of LV thrombus. He reports compliance to medications which include aspirin and Effient. Past Medical History: Diagnosis Date Ankle swelling Anxiety Appendicitis 1998 s/p appendectomy 1998 CAD (coronary artery disease) CAD s/p [facility] with 1 stent in left main 07/2012, replaced 09/2014 Chest pain Circulation problem right leg COPD (chronic obstructive pulmonary disease) ([facility]) Fatigue GERD (gastroesophageal reflux disease) Headache HLD (hyperlipidemia) HTN (hypertension) Metabolic syndrome Mood disorder ([facility]) Obstructive sleep apnea Pneumomediastinum ([facility]) 01/2007 Rotator cuff tear, right 1997 s/p repair SLAP tear of shoulder 2011 left - s/p surgery to place [address] elevation myocardial infarction (STEMI) of anterolateral wall ([facility]) 05/09/12 Past Surgical History: Procedure Laterality Date APPENDECTOMY 1998 CARDIAC CATHETERIZATION 09/2014 Segment LV dysf., mild to moderate LV systolic impairment, moderate LV diastolic dysf.; single vesselCAD CARDIAC CATHETERIZATION 04/2012 Severe LV systolic dysf., EF 20%; elevated LVEDP; segmental contraction abnormality of the LV; single vessel CAD with acute thrombotic occlusion of left anterior descending. CARDIAC CATHETERIZATION Left 09/28/2015 Dr. Rowland Predominant single vessel CAD w/ no angiographic evidence of restenosis within Intervened upon segment LAD, reidentification of high grade small caliber jailed diagonal disease. Normal LV end-diastolic pressure. COLONOSCOPY 05/27/2015 CORONARY STENT PLACEMENT 2012 Drug eluted Alpine stent in the left anterior descending CORONARY STENT PLACEMENT 2014 Subacute stent thrombosis which appears late. This may be in the settin g of areas of restenosis within the stent. Alpine XIENCE drug eluted stent OTHER SURGICAL HISTORY 05/27/2015 Endoscopy ROTATOR CUFF REPAIR Right 1997 SHOULDER ARTHROSCOPY W/ SUPERIOR LABRAL ANTERIOR POSTERIOR REPAIR Left 11/21/12 SHOULDER ARTHROSCOPY W/ SUPERIOR LABRAL ANTERIOR POSTERIOR REPAIR Left [address] 6 anchors SHOULDER SURGERY Left 05/08/2013 SINUS SURGERY 2008 or 2009 STENT PLACEMENT 05/09/12 and intraaortic balloon pump Social History Socioeconomic History Marital status: Spouse name: Not on file Number of children: Not on file Years of education: Not on file Highest education level: Not on file Occupational History Not on file Social Needs Financial resource strain: Not on file Food insecurity Worry: Not on file Inability: Not on file Transportation needs Medical: Not on file Non-medical: Not on file Tobacco Use Smoking status: Former Smoker Packs/day: 1.00 Last attempt to quit: 05/12/2016 Years since quittin.6 Smokeless tobacco: Never Used Tobacco comment: 20+ years. Quit May 12 Substance and Sexual Activity Alcohol use: Yes Alcohol/week: 0.0 standard drinks Comment: socially Drug use: Not Currently Sexual activity: Not on file Lifestyle Physical activity Days per week: Not on file Minutes per session: Not on file Stress: Not on file Relationships Social connections Talks on phone: Not on file Gets together: Not on file Attends pentecostal service: Not on file Active member of club or organization: Not on file Attends meetings of clubs or organizations: Not on file Relationship status: Not on file Other Topics Concern Not on file Social History Narrative Not on file Family History Problem Relation Age of Onset Heart attack Father Other Father high cholesterol Heart disease Father Other Mother high cholesterol Heart disease Mother Stroke Mother 64 Coronary artery disease Other Cancer Paternal Uncle unknown cancer Current Facility-Administered Medications Medication Dose Route Frequency Provider Last Rate Last Dose acetaminophen (TYLENOL) tablet 650 mg 650 mg Oral Q4H PRN Meron Roper MD 650 mg at 01/17/19 2119 albuterol inhaler 2 puff 2 puff Inhalation Q6H PRN Meron Roper MD 2 puff at 01/17/19 1746 aspirin EC tablet 81 mg 81 mg Oral Daily Meron Roper MD atorvastatin (LIPITOR) tablet 20 mg 20 mg Oral at bedtime Meron Roper MD 20 mg at 01/17/19 2117 budesonide-formoterol (SYMBICORT) 160-4.5 mcg/actuation inhaler 2 puff 2 puff Inhalation BID Meron Roper MD 2 puff at 01/18/19 0811 carvedilol (COREG) tablet 25 mg 25 mg Oral BID with meals Meron Roper MD 25 mg at 01/17/19 1733 furosemide (LASIX) tablet 40 mg 40 mg Oral Daily Meron Roper MD heparin (porcine) 25,000 unit/250 mL(100 unit/mL) in D5W infusion 0-70 Units/kg/hr (Order-Specific) Intravenous Continuous Meron Roper MD 10.4 mL/hr at 01/18/19 0700 9 Units/kg/hr at 01/18/19 0700 heparin bolus from bag 0-5,000 Units 0-5,000 Units Intravenous Continuous PRN Meron Roper MD 5,000 Units at 01/18/19 0413 ipratropium-albuterol (DUO-NEB) 0.5-2.5 mg/3 ml nebulizer solution 3 mL 3 mL Nebulization Q6H JUVENCIO Meron Roper MD 3 mL at 01/18/19 0811 lisinopril (PRINIVIL,ZESTRIL) tablet 10 mg 10 mg Oral Daily with lunch Meron Roper MD nitroGLYCERIN (NITRO-BID) 2 % ointment 1 inch 1 inch Topical Q6H Meron Roper MD 1 inch at 01/17/198 pantoprazole (PROTONIX) EC tablet 40 mg 40 mg Oral Daily Meron Roper MD potassium chloride SA (K-DUR,KLOR-CON) CR tablet 10 mEq 10 mEq Oral Daily Meron Roper MD prasugrel (EFFIENT) tablet 10 mg 10 mg Oral Daily Meron Roper MD rOPINIRole (REQUIP) tablet 2 mg 2 mg Oral Nightly Meron Roper MD 2 mg at 01/17/192116 varenicline (CHANTIX) tablet 1 mg 1 mg Oral BID Meron Roper MD 1 mg at 01/17/192116 Current Outpatient Medications Medication Sig Dispense Refill albuterol 90 mcg/actuation inhaler Inhale 2 puffs every 6 (six) hours as needed for wheezing or shortness of breath . aspirin 81 MG EC tablet Take 81 mg by mouth daily. atorvastatin (LIPITOR) 20 MG tablet Take 1 (one) tablet (20 mg total) by mouth daily . 90 tablet 3 budesonide-formoterol (Symbicort) 160-4.5 mcg/actuation inhaler Inhale 2 puffs 2 (two) times a day . carvedilol (COREG) 25 MG tablet Take 1 (one) tablet (25 mg total) by mouth 2 (two) times a day with meals . 180 tablet 3 enalapril (VASOTEC) 5 MG tablet Take 5 mg by mouth 2 (two) times a day . furosemide (LASIX) 40 MG tablet Take 1 (one) tablet (40 mg total) by mouth daily . 90 tablet 3 ipratropium-albuterol (DUO-NEB) 0.5-2.5 mg/3 ml nebulizer Take 3 mL by nebulization every 6 (six) hours . 360 mL 0 omeprazole (PRILOSEC) 40 MG capsule Take 40 mg by mouth daily potassium chloride (K-DUR) 10 MEQ CR tablet Take 10 mEq by mouth 2 (two) times a day . prasugrel (EFFIENT) 10 mg tablet Take 1 (one) tablet (10 mg total) by mouth daily . 90 tablet 3 rOPINIRole (REQUIP) 2 MG tablet Take 2 mg by mouth nightly. varenicline (CHANTIX) 1 mg tablet Take 1 mg by mouth 2 (two) times a day . enalapril (VASOTEC) 5 MG tablet TAKE 1 TABLET(5 MG) BY MOUTH TWICE DAILY 180 tablet 0 hydroCHLOROthiazide (HYDRODIURIL) 25 MG tablet Take 1 (one) tablet (25 mg total) by mouth daily . 90 tablet 3 potassium chloride SA (K-DUR,KLOR-CON) 10 MEQ tablet TAKE 1 TABLET(10 MEQ) BY MOUTH TWICE DAILY 180 tablet 0 Allergies: Imdur [isosorbide mononitrate] Review of system: All other system reviewed are negative Exam- BP 121/75 Pulse 79 Temp 97.8 F (36.6 C) (Oral) Resp 16 Ht 5' 7 Wt 116.6 kg (257 lb) SpO2 97% BMI 40.25 kg/m Body mass index is 40.25 kg/m . General- sitting comfortably, no acute cardiorespiratory distress HEENT- no pallor, no icterus, no cyanosis Neck- no JVD, no bruit Chest- bilateral clear breath sounds, no crackles, no rhonchi CVS- S1S2 normal, no rub, no murmur PA- abdomen soft, bowel sounds+ Swelling - none Skin/Ulcer - normal Neuro- alert oriented x 3 Pertient labs Lab Results Component Value Date WBC 11.26 (H) 01/17/2019 HGB 12.8 (L) 01/17/2019 HCT 38.7 (L) 01/17/2019 MCV 85.8 01/17/2019 EXTMCV 84.5 01/09/2018 PLT 227 01/17/2019 RBC 4.51 01/17/2019 GLUCOSE 125 (H) 01/17/2019 CALCIUM 8.1 (L) 01/17/2019 NA 138 01/17/2019 K 4.0 01/17/2019 CL 109 (H) 01/17/2019 BUN 22 01/17/2019 CREATININE 1.11 01/17/2019 ALT 67 (H) 01/17/2019 AST 28 01/17/2019 ALKPHOS 75 01/17/2019 BILITOT 0.9 01/17/2019 INR 1.0 01/17/2019 PROTIME 12.5 01/17/2019 PTT 31 01/18/2019 Lab Results Component Value Date TROPONINI <15 01/17/2019 TROPONINI <15 01/17/2019 TROPONINI <15 01/17/2019 NTPROBNP 123 01/17/2019 DDIMER <0.27 01/17/2019 A/P- Chest pain episodes- may represent angina Single-vessel CAD status post PCI 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 Obesity Hypertension Recent ex-smoker Plan - Given his risk factors and complaints of chest pain which is similar to his pain prior to the PA will plan for a left heart cath on 01/20/2019 - Continue heparin as per ACS protocol with a target APTT of 60 to 80 seconds - Okay to use Nitropaste - Continue aspirin, Effient, statin - Continue Coreg, enalapril and Lasix Electronically Signed by: Carlo Mercedes M.D 01/18/19 8:19 AM documented in this encounter Associated Order(s): IP CONSULT TO CARDIOLOGY Interventional Cardiology Clinic Consult Heart & Vascular [facility] 10/15/2019 Anita Rowland MD [address] [place] [id number] Patient: Fernando Helton Date of : 1970 (49 y.o.) Referring Provider: No ref. provider found PCP: Moises Patel MD Assessment & Plan Fernando Helton is a 49 y.o. male presents today for evaluation and treatment of near syncope ISAC (obstructive sleep apnea) Noncompliant with CPAP therapy. COPD (chronic obstructive pulmonary disease) (HCC) Patient reports he has discontinued tobacco abuse. Essential hypertension We have made no change in his current medical regiment. Coronary artery disease involving [place] coronary artery of [place] heart without angina pectoris Patient has a long-standing history of cardiac disease beginning in April 2012 at which time he had presented with an acute anterolateral wall myocardial infarction. He underwent catheter base intervention with bare-metal stent placement to the left anterior descending at that time due to a history of profound medical noncompliance. He discontinued his medical regiment in September 2014 and had represented with an acute anterior wall myocardial infarction secondary to acute stent thrombosis. His procedure was complicated by ventricular fibrillation arrest. He underwent catheter base intervention with drug-eluting stent placement to the LAD at that time. He has chronic chest pain syndrome, and underwent relook angiography in December 2014 and had balloon intervention to a jailed diagonal branch. There was no angiographic evidence of restenosis within the left anterior descending, and his ejection fraction was 30%. Patient had presented with chest symptoms January 2019 and was found to have an occluded collateralized left anterior descending at the site of previous catheter-based intervention. LV ejection fraction was reported at 45% with anterior wall hypokinesis. 2D echocardiogram with an LV ejection fraction of 55% with akinesis of the mid and apical anteroseptal wall. Patient subsequent underwent left internal mammary grafting to the left anterior descending by Dr. Mcneil. Patient is not reporting a recurrence in his chest symptoms. We recommend he continue on his current medical regiment. TIA (transient ischemic attack) Patient had presented September 2019 with symptoms concerning for posterior circulation TIA. Seen in consultation by neurology. MRI unremarkable. CT angiography of the head and neck no extracranial or vertebral stenosis. No recurrence in symptom complex. I would like to obtain 2D echocardiogram to exclude intracardiac source of emboli and 30-day event recorder. Patient recommended by neurology for long-term dual antiplatelet therapy. Mixed hyperlipidemia Patient should continue with high intensity plaque stabilization therapy. Near syncope Patient admitted yesterday evening following apparent witnessed near syncopal spell. Cardiac markers not detectable. Electrocardiogram nonacute. 2D echocardiogram this morning reviewed with Dr. Bueno demonstrates LV ejection fraction of 40% with anteroseptal and anteroapical wall motion abnormality. No LV thrombus. No significant valvular heart disease. Current exam does not suggest evidence for cardiac decompensation. Recommend obtaining troponin level this morning. Recommend 30-day event recorder to exclude underlying dysrhythmia. Recommend no driving until results of ambulatory monitoring obtained. Discussed at length with patient and at the bedside this morning. We will follow-up in the ambulatory setting to review 30-day event recorder. Nicotine abuse Patient states he has discontinued tobacco abuse. Near syncope Assessment & Plan Patient admitted yesterday evening following apparent witnessed near syncopal spell. Cardiac markers not detectable. Electrocardiogram nonacute. 2D echocardiogram this morning reviewed with Dr. Bueno demonstrates LV ejection fraction of 40% with anteroseptal and anteroapical wall motion abnormality. No LV thrombus. No significant valvular heart disease. Current exam does not suggest evidence for cardiac decompensation. Recommend obtaining troponin level this morning. Recommend 30-day event recorder to exclude underlying dysrhythmia. Recommend no driving until results of ambulatory monitoring obtained. Discussed at length with patient and at the bedside this morning. We will follow-up in the ambulatory setting to review 30-day event recorder. TIA (transient ischemic attack) Assessment & Plan Patient had presented September 2019 with symptoms concerning for posterior circulation TIA. Seen in consultation by neurology. MRI unremarkable. CT angiography of the head and neck no extracranial or vertebral stenosis. No recurrence in symptom complex. I would like to obtain 2D echocardiogram to exclude intracardiac source of emboli and 30-day event recorder. Patient recommended by neurology for long-term dual antiplatelet therapy. Nicotine abuse Assessment & Plan Patient states he has discontinued tobacco abuse. ISAC (obstructive sleep apnea) Assessment & Plan Noncompliant with CPAP therapy. COPD (chronic obstructive pulmonary disease) ([facility]) Assessment & Plan Patient reports he has discontinued tobacco abuse. Coronary artery disease involving [place] coronary artery of [place] heart without angina pectoris Assessment & Plan Patient has a long-standing history of cardiac disease beginning in April 2012 at which time he had presented with an acute anterolateral wall myocardial infarction. He underwent catheter base intervention with bare-metal stent placement to the left anterior descending at that time due to a history of profound medical noncompliance. He discontinued his medical regiment in September 2014 and had represented with an acute anterior wall myocardial infarction secondary to acute stent thrombosis. His procedure was complicated by ventricular fibrillation arrest. He underwent catheter base intervention with drug-eluting stent placement to the LAD at that time. He has chronic chest pain syndrome, and underwent relook angiography in December 2014 and had balloon intervention to a jailed diagonal branch. There was no angiographic evidence of restenosis within the left anterior descending, and his ejection fraction was 30%. Patient had presented with chest symptoms January 2019 and was found to have an occluded collateralized left anterior descending at the site of previous catheter-based intervention. LV ejection fraction was reported at 45% with anterior wall hypokinesis. 2D echocardiogram with an LV ejection fraction of 55% with akinesis of the mid and apical anteroseptal wall. Patient subsequent underwent left internal mammary grafting to the left anterior descending by Dr. Mcneil. Patient is not reporting a recurrence in his chest symptoms. We recommend he continue on his current medical regiment. Mixed hyperlipidemia Assessment & Plan Patient should continue with high intensity plaque stabilization therapy. Essential hypertension Assessment & Plan We have made no change in his current medical regiment. Follow-up: No follow-ups on file. Chief Complaint: Weakness Subjective History of Present Illness: Patient seen and examined, medical record reviewed. Patient known to me from office visit yesterday and I refer you to the medical record for that review. Patient was seen yesterday in the cardiovascular clinic in follow-up from what appeared to be a posterior circulation TIA. 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 He was packing up his gear at the conclusion of the race when he began to feel lightheaded and dizzy with profuse sweating . No palpitations. No l apparent Loss of consciousness. Did not describe focal neurologic symptoms of dysarthria or motor deficit. Patient has limited recall for the event but discussed at length with his who witnessed the episode. No complaints of chest discomfort or shortness of breath. EMS was called and blood pressure on arrival was by report 170/86. Admitted from the emergency room. Cardiac markers not detectable. Electrocardiogram nonacute. As I see him this morning he is resting comfortably without complaints. Has not been describing shortness of breath or chest discomfort with activities of daily living. No PND or orthopnea. I reviewed his 2D echocardiogram that demonstrates LV ejection fraction of 40% with anteroapical and anteroseptal wall motion abnormality unchanged from earlier studies. No LV thrombus. Telemetry with occasional PVCs sinus rhythm. Objective Imaging: Imaging: I independently reviewed the EKG, Echo and cardiac catheterization and agree with the interpretation(s) with the following comments. Electrocardiogram, 12-lead Final Result by Interface, Lab Results In [place] [facility] (10/16/2019 0822) Echocardiogram complete w contrast Final Result by Emma Bueno MD (10/16/2019 1149) Echocardiogram limited with contrast Final Result by (01/27/2019 0822) Stress test only, exercise Final Result by Emma Bueno MD (03/13/2019 1441) Cardiac Catheterization Final Result by Carlo Mercedes MD (01/20/2019 0914) Review of Systems: Review of Systems Constitutional: Positive for fatigue. Negative for activity change and fever. HENT: Negative for congestion, facial swelling, nosebleeds and tinnitus. Eyes: Negative for itching and visual disturbance. Respiratory: Negative for cough, shortness of breath and wheezing. Cardiovascular: Negative for chest pain and palpitations. Gastrointestinal: Negative for abdominal pain, diarrhea and rectal pain. Endocrine: Negative for cold intolerance and polyphagia. Genitourinary: Negative for difficulty urinating, flank pain and hematuria. Musculoskeletal: Positive for arthralgias and back pain. Negative for neck pain. Skin: Negative for color change and rash. Allergic/Immunologic: Negative for food allergies. Neurological: Positive for dizziness and light-headedness. Negative for speech difficulty. Near syncope Hematological: Negative for adenopathy. Psychiatric/Behavioral: Positive for confusion and decreased concentration. Negative for behavioral problems and suicidal ideas. All other systems reviewed and are negative. Past Medical History: Diagnosis Date Acute respiratory failure ([facility]) 09/2014 requring mechanical ventilation Anxiety Bilateral lower extremity edema R > L CAD (coronary artery disease) CAD s/p [facility] with 1 stent in left main 07/2012, replaced 09/2014 Cardiac arrest with ventricular fibrillation ([facility]) 09/25/2014 CHF (congestive heart failure), NYHA class I, chronic, diastolic ([facility]) Chronic sinusitis Claudication of right lower extremity ([facility]) Cluster headache COPD (chronic obstructive pulmonary disease) ([facility]) 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 Bev Tolentino Metabolic syndrome Mood disorder ([facility]) Nasal fracture Obstructive sleep apnea noncompliant with CPAP Orthostatic dizziness with intermittent syncope Pericarditis 02/25/07; 09/23/17 Pneumomediastinum ([facility]) 01/12/2007 secondary to severe coughing spell & ruptured alveoli Rotator cuff tear, right 1997 s/p repair SLAP tear of shoulder 2011 left - s/p surgery to place [address] elevation myocardial infarction (STEMI) of anterolateral wall ([facility]) 05/09/2012 anterolateral STEMI involving left anterior descending coronary artery ([facility]) 09/25/2014 anterior Superficial thrombophlebitis of right upper extremity 12/26/2006 Past Surgical History: Procedure Laterality Date APPENDECTOMY 1998 BONE MARROW BIOPSY W/ ASPIRATION Left 11/27/2016 L posterior iliac crest; Dr. Bev Tolentino CABG OFF PUMP N/A 01/24/2019 Procedure: Coronary Artery Bypass graft x1 with Left Internal Mammary Artery graft, OFF PUMP; Surgeon: Neo Mcneil MD; Location: Main OR; Service: Cardiothoracic CARDIAC CATHETERIZATION 09/24/2014 Segment LV dysf., mild to moderate LV systolic impairment, moderate LV diastolic dysf.; single vessel CAD by Dr. Whitney CARDIAC CATHETERIZATION 05/09/2012 Emergent. Severe LVSD EF 20%; single vessel CAD with acute thrombotic occlusion of left anterior descending by Dr. Rowland CARDIAC CATHETERIZATION Left 09/28/2015 Dr. Rowland Predominant single vessel CAD w/ no angiographic evidence of restenosis within Intervened upon segment LAD, reidentification of high grade small caliber jailed diagonal disease. Normal LV end-diastolic pressure. CARDIAC CATHETERIZATION 01/14/[address] Phillips CARDIAC CATHETERIZATION 11/24/[address] Rowland COLONOSCOPY 05/27/2015 CORONARY ANGIOPLASTY 12/25/2014 PCI with balloon angioplasty by Dr. Whitney of jailed diagonal CORONARY STENT PLACEMENT 05/09/2012 Drug eluted Alpine stent in the left anterior descending by Dr. Rowland CORONARY STENT PLACEMENT 09/24/2014 Subacute stent thrombosis by Dr. Whitney. This may be in the setting of areas of restenosis within the LAD stent CV IR INTERVENTIONAL RADIOLOGY Left 02/03/2019 Procedure: IR THORACENTESIS LEFT; Surgeon: Gilmer Zelaya MD; Location: IR LAB; Service: Interventional Radiology ETHMOIDECTOMY Bilateral 06/25/[address] Gaitan HC LEFT HEART CATH N/A 01/20/2019 Procedure: Left Heart Cath; Surgeon: Carlo Mercedes MD; Location: [facility]; Service: Cardiovascular IABP placement 05/09/[address] Rowland NASAL SEPTUM SURGERY 06/25/[address] Gaitan ROTATOR CUFF REPAIR Right 1997 SHOULDER ARTHROSCOPY W/ SUPERIOR LABRAL ANTERIOR POSTERIOR REPAIR Left 11/2012 @ [facility] SHOULDER ARTHROSCOPY W/ SUPERIOR LABRAL ANTERIOR POSTERIOR REPAIR Left 11/22/2011 shoulder arthroscopic anterior capsulorraphy, SLAP repair, acromioplasty, limited debridement of labrum and rotator cuff by Dr. Sexton SINUSOTOMY Bilateral 06/25/2007 with removal of tissue by Dr. Gaitan UPPER GASTROINTESTINAL ENDOSCOPY 2016 Family History Problem Relation Age of Onset Heart attack Father Heart disease Father s/p cabg x 4 in his 40s Coronary artery disease Father Hypertension Father Hyperlipidemia Father Heart disease Mother Stroke Mother 64 Hyperlipidemia Mother Coronary artery disease Other Cancer Paternal Uncle unknown cancer Hypertension Sister Diabetes Brother Heart disease Brother s/p PCI Melanoma Brother Social History Tobacco Use Smoking Status Former Smoker Packs/day: 1.00 Years: 35.00 Pack years: 35.00 Quit date: 05/12/2016 Years since quittin.4 Smokeless Tobacco Never Used Tobacco Comment Quit 05/12/18 Allergies: Imdur [isosorbide mononitrate] HOME Medications: No current facility-administered medications on file prior to encounter. Current Outpatient Medications on File Prior to Encounter Medication Sig azithromycin (ZITHROMAX) 1 gram powder Take 1 packet by mouth once 5 days, 1 daily. Reasons: bacterial infection with chronic bronchitis, COPD. predniSONE (DELTASONE) 20 MG tablet Take 20 mg by mouth daily Take 2, 20 mg pills today, 2, 20 mg pills tomorrow, 10/17/19. Reasons: worsening chronic obstructive pulmonary disease. albuterol 90 mcg/actuation inhaler Inhale 2 puffs every 6 (six) hours as needed for wheezing or shortness of breath . aspirin 81 MG EC tablet Take 81 mg by mouth daily. atorvastatin (LIPITOR) 40 MG tablet Take 1 (one) tablet (40 mg total) by mouth nightly . blood sugar diagnostic (glucose blood) strips Use as directed before breakfast and supper Dx E11.65 . blood-glucose meter kit Use as instructed Dx E11.65 . budesonide-formoterol (Symbicort) 160-4.5 mcg/actuation inhaler Inhale 2 puffs 2 (two) times a day . clopidogreL (PLAVIX) 75 mg tablet Take 1 (one) tablet (75 mg total) by mouth daily . freestyle 28 gauge lancets USE DIRECTED BID BEFORE BREAKFAST AND SUPPER furosemide (Lasix) 20 MG tablet Take 1 (one) tablet (20 mg total) by mouth daily . lancets Misc Use as directed before breakfast and supper Dx E11.65 . metoprolol tartrate 75 mg Tab Take 75 mg by mouth 2 (two) times a day . omeprazole (PRILOSEC) 40 MG capsule Take 1 (one) capsule (40 mg total) by mouth daily . potassium chloride (K-DUR) 10 MEQ CR tablet Take 1 (one) tablet (10 mEq total) by mouth daily . rOPINIRole (REQUIP) 2 MG tablet Take 2 mg by mouth nightly. traZODone (DESYREL) 50 MG tablet Take 50 mg by mouth nightly as needed . Physical Examination: BP 126/80 (BP Location: Left arm, Patient Position: Lying) Pulse 70 Temp 97.6 F (36.4 C) (Oral) Resp 16 Ht 5' 6 Wt 118 kg (260 lb 2.3 oz) SpO2 95% BMI 41.99 kg/m Physical Exam Constitutional: He is oriented to person, place, and time and well-developed, well-nourished, and in no distress. HENT: Head: Normocephalic and atraumatic. Eyes: Pupils are equal, round, and reactive to light. EOM are normal. Neck: Normal range of motion. Neck supple. Cardiovascular: Normal rate, regular rhythm, normal heart sounds and intact distal pulses. Quiet precordium. Physiologic S1 and S2. No obvious murmur. Apical impulse not palpable. Jugular venous pressure difficult to estimate Pulmonary/Chest: Effort normal and breath sounds normal. No rales or wheezes Abdominal: Soft. Bowel sounds are normal. Musculoskeletal: Normal range of motion. Comments: No edema Neurological: He is alert and oriented to person, place, and time. He has normal reflexes. Nonfocal. No gross deficits. Skin: Skin is warm and dry. Psychiatric: Affect and judgment normal. Nursing note and vitals reviewed. Lab Results Component Value Date CHOL 155 09/22/2019 LDLCALC 79 09/22/2019 TRIG 192 (H) 09/22/2019 HDL 38 (L) 09/22/2019 Lab Results Component Value Date GLUCOSE 117 (H) 10/16/2019 CALCIUM 8.7 10/16/2019 NA 140 10/16/2019 K 3.7 10/16/2019 CL 108 10/16/2019 BUN 28 (H) 10/16/2019 CREATININE 1.09 10/16/2019 Lab Results Component Value Date TROPONINI <15 10/16/2019 Lab Results Component Value Date WBC 15.61 (H) 10/16/2019 HGB 15.2 10/16/2019 HCT 47.6 10/16/2019 MCV 85.9 10/16/2019 EXTMCV 84.5 01/09/2018 PLT 306 10/16/2019 RBC 5.54 10/16/2019 Lab Results Component Value Date PLT 306 10/16/2019 documented in this encounter Occupational Therapy OCCUPATIONAL THERAPY EVALUATION NOTE Diagnosis: TIA, r/o CVA Skilled Therapy Needs After Discharge Are Skilled Therapy Services Needed After Discharge: No further occupational therapy is needed. Patient is functioning WNL for ADL's, BUE function, visual perceptual skills. Grab bar was advised for his shower at home considering his occasional dizziness. Outcomes Measures Prior Function Daily Activity: Raw Score: 24 Prior Function Daily Activity % Impaired: 0% functionally impaired AM-PAC Daily Activity: Raw Score: 24 AM-PAC Daily Activity % Impaired: 0% functionally impaired Occupational Therapy Assessment The patient's current functional participation deficits are occasional dizziness. The patient's co morbidities do affect patient performance in the above activities and roles. The performance deficits are a result of no impairment(s) in including , , and . The patient's home setup is a rug dyer helper, family / caregiver support is a rug dyer helper for return to prior level of function. The patient's compliance is a rug dyer helper, awareness of own capacity and performance is a rug dyer helper to return to prior level of function. During the assessment, no modification of task was required and limited treatment options were identified in the plan of care. This consultation required brief review of the medical and therapy history. Activity Tolerance Activity Tolerance: Tolerates 10 - 20 min activity with multiple rests Therapy Precautions Orthotic Devices: No Weight Bearing Status: WFL General Rehab Precautions: Fall risk Cognition Arousal/Alertness: Appropriate responses to stimuli Orientation Level: Oriented X4 Safety Judgment: Good awareness of safety precautions Attention: Attends to quiet environment Hearing Status: WFL Social Interaction: WFL Skilled Intervention: Visually scans environment. Reports occasional double vision, but none during OT eval. [id number] WNL. ADL/IADL Feeding: Independent Grooming : Independent LE Dressing: Independent Toileting : Independent Skilled Intervention: Stood at sink to groom. No LOB. Bed Mobility Supine to Sit: Independent Functional Transfers Sit to Stand: Independent Bed to Chair Transfers: Independent Toilet Transfers: Independent Skilled Intervention: Walked from bed to sink and back to bed. No LOB. Exercise BUE WNL Interventions Home Living Type of Home: House Home Layout: Two level Bathroom Shower/Tub: Tub/shower unit Bathroom Toilet: Standard Additional Comments: Grab bar was advised considering occasional dizziness.. Prior Level of Function Level of [place]: Independent with ADLs and functional transfers, Independent with homemaking with ambulation Lives With: Spouse Receives Help From: Family ADL Assistance: Independent Homemaking Assistance: Independent Vocational: On disability Comments: Drives. Independent in community. Past Medical History: Diagnosis Date Acute respiratory failure ([facility]) 09/2014 requring mechanical ventilation Anxiety Bilateral lower extremity edema R > L CAD (coronary artery disease) CAD s/p [facility] with 1 stent in left main 07/2012, replaced 09/2014 Cardiac arrest with ventricular fibrillation ([facility]) 09/25/2014 CHF (congestive heart failure), NYHA class I, chronic, diastolic ([facility]) Chronic sinusitis Claudication of right lower extremity ([facility]) Cluster headache COPD (chronic obstructive pulmonary disease) ([facility]) 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 Bev Tolentino Metabolic syndrome Mood disorder ([facility]) Nasal fracture Obstructive sleep apnea noncompliant with CPAP Orthostatic dizziness with intermittent syncope Pericarditis 02/25/07; 09/23/17 Pneumomediastinum ([facility]) 01/12/2007 secondary to severe coughing spell & ruptured alveoli Rotator cuff tear, right 1997 s/p repair SLAP tear of shoulder 2011 left - s/p surgery to place [address] elevation myocardial infarction (STEMI) of anterolateral wall ([facility]) 05/09/2012 anterolateral STEMI involving left anterior descending coronary artery ([facility]) 09/25/2014 anterior Superficial thrombophlebitis of right upper extremity 12/26/2006 Past Surgical History: Procedure Laterality Date APPENDECTOMY 1999 BONE MARROW BIOPSY W/ ASPIRATION Left 11/27/2016 L posterior iliac crest; Dr. Bev Tolentino CABG OFF PUMP N/A 01/24/2019 Procedure: Coronary Artery Bypass graft x1 with Left Internal Mammary Artery graft, OFF PUMP; Surgeon: Neo Mcneil MD; Location: Main OR; Service: Cardiothoracic CARDIAC CATHETERIZATION 09/24/2014 Segment LV dysf., mild to moderate LV systolic impairment, moderate LV diastolic dysf.; single vessel CAD by Dr. Whitney CARDIAC CATHETERIZATION 05/09/2012 Emergent. Severe LVSD EF 20%; single vessel CAD with acute thrombotic occlusion of left anterior descending by Dr. Rowland CARDIAC CATHETERIZATION Left 09/28/2015 Dr. Rowland Predominant single vessel CAD w/ no angiographic evidence of restenosis within Intervened upon segment LAD, reidentification of high grade small caliber jailed diagonal disease. Normal LV end-diastolic pressure. CARDIAC CATHETERIZATION 01/14/[address] Phillips CARDIAC CATHETERIZATION 11/24/[address] Rowland COLONOSCOPY 05/27/2015 CORONARY ANGIOPLASTY 12/25/2014 PCI with balloon angioplasty by Dr. Whitney of jailed diagonal CORONARY STENT PLACEMENT 05/09/2012 Drug eluted Alpine stent in the left anterior descending by Dr. Rowland CORONARY STENT PLACEMENT 09/24/2014 Subacute stent thrombosis by Dr. Whitney. This may be in the setting of areas of restenosis within the LAD stent CV IR INTERVENTIONAL RADIOLOGY Left 02/03/2019 Procedure: IR THORACENTESIS LEFT; Surgeon: Gilmer Zelaya MD; Location: IR LAB; Service: Interventional Radiology ETHMOIDECTOMY Bilateral 06/25/[address] Gaitan LEFT HEART CATH N/A 01/20/2019 Procedure: Left Heart Cath; Surgeon: Carlo Mercedes MD; Location: [facility]; Service: Cardiovascular IABP placement 05/09/[address] Rowland NASAL SEPTUM SURGERY 06/25/[address] Gaitan ROTATOR CUFF REPAIR Right 1997 SHOULDER ARTHROSCOPY W/ SUPERIOR LABRAL ANTERIOR POSTERIOR REPAIR Left 11/2012 @ [facility] SHOULDER ARTHROSCOPY W/ SUPERIOR LABRAL ANTERIOR POSTERIOR REPAIR Left 11/22/2011 shoulder arthroscopic anterior capsulorraphy, SLAP repair, acromioplasty, limited debridement of labrum and rotator cuff by Dr. Sexton SINUSOTOMY Bilateral 06/25/2007 with removal of tissue by Dr. Gaitan UPPER GASTROINTESTINAL ENDOSCOPY 2015 For complete objective data, detailed plan of care and patient education refer to: OT EVALUATION flow sheet, OT TREATMENT flow sheet, patient Plan of Care, Plan of Care progress note, and Patient Education. This note stands as the current Discharge Summary upon patient discharge from the hospital or completion of Occupational Therapy Plan of Care. Physical Therapy PHYSICAL THERAPY EVALUATION NOTE Skilled Therapy Needs After Discharge Are Skilled Therapy Services Needed After Discharge: No Outcomes Measures Prior Function - Basic Mobility Raw Score: 24 Points Prior Function - Basic Mobility % Impaired: AM-PAC - Basic Mobility Raw Score: 19 Points AM-PAC - Basic Mobility % Impaired: Physical Therapy Assessment History: Patient admitted with TIA. The following factors influence the patient's participation in the PT plan of care: Personal Factors: Body Habitus Environmental Factors: Multi-level home, Bedroom/bathroom on 2nd floor The following co-morbidities (from this admission or prior) influence the patient's participation in this plan of care: obesity, COPD, anxiety Number of History elements affecting this patient's PT plan of care: 3 or more Examination of Body Systems: The patient presents with: Musculoskeletal impairments: Strength Neurologic Impairments: Balance Cardiopulmonary Impairments: Activity Tolerance. These impairments result in limitations of . These impairments result in restrictions of . Number of Body Systems elements affecting this patient's PT plan of care: . Clinical Presentation: The patient's clinical presentation for this PT evaluation is evolving as evidenced by current PT documentation. Activity Tolerance Activity Tolerance: Tolerates 10 - 20 min activity with multiple rests Therapy Precautions General Rehab Precautions: Fall risk Balance Sitting Balance - Static: Sits without support for more than 30 seconds Standing Balance - Static: Stands without support for more than 30 seconds Bed Mobility Rolling: Modified independence Supine to Sit: Modified independence Transfers Sit to Stand: Supervision Stand Pivot Transfers: Supervision Gait/Locomotion Gait Assistance: Supervision Assistive Device: None Distance: 150 Feet Pattern: Step through Stair Management Technique: One rail L Stair Management Assistance: Stand by assistance Skilled Intervention: Mild shortness of breath with gait. Able to recover with rest. Exercise Strength: Bilateral LEs 4+/5 Home Living Type of Home: House Home Layout: Two level Prior Level of Function Level of [place]: Independent with ADLs and functional transfers, Independent with homemaking with ambulation Lives With: Spouse Patient is at or near prior level of function at this time. Past Medical History: Diagnosis Date Acute respiratory failure ([facility]) 09/2014 requring mechanical ventilation Anxiety Bilateral lower extremity edema R > L CAD (coronary artery disease) CAD s/p [facility] with 1 stent in left main 07/2012, replaced 09/2014 Cardiac arrest with ventricular fibrillation ([facility]) 09/25/2014 CHF (congestive heart failure), NYHA class I, chronic, diastolic ([facility]) Chronic sinusitis Claudication of right lower extremity ([facility]) Cluster headache COPD (chronic obstructive pulmonary disease) ([facility]) 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 Bev Tolentino Metabolic syndrome Mood disorder ([facility]) Nasal fracture Obstructive sleep apnea noncompliant with CPAP Orthostatic dizziness with intermittent syncope Pericarditis 02/25/07; 09/23/17 Pneumomediastinum ([facility]) 01/12/2007 secondary to severe coughing spell & ruptured alveoli Rotator cuff tear, right 1997 s/p repair SLAP tear of shoulder 2011 left - s/p surgery to place [address] elevation myocardial infarction (STEMI) of anterolateral wall ([facility]) 05/09/2012 anterolateral STEMI involving left anterior descending coronary artery ([facility]) 09/25/2014 anterior Superficial thrombophlebitis of right upper extremity 12/26/2006 Past Surgical History: Procedure Laterality Date APPENDECTOMY 1998 BONE MARROW BIOPSY W/ ASPIRATION Left 11/27/2016 L posterior iliac crest; Dr. Bev Tolentino CABG OFF PUMP N/A 01/24/2019 Procedure: Coronary Artery Bypass graft x1 with Left Internal Mammary Artery graft, OFF PUMP; Surgeon: Neo Mcneil MD; Location: [facility]; Service: Cardiothoracic CARDIAC CATHETERIZATION 09/24/2014 Segment LV dysf., mild to moderate LV systolic impairment, moderate LV diastolic dysf.; single vessel CAD by Dr. Whitney CARDIAC CATHETERIZATION 05/09/2012 Emergent. Severe LVSD EF 20%; single vessel CAD with acute thrombotic occlusion of left anterior descending by Dr. Rowland CARDIAC CATHETERIZATION Left 09/28/2015 Dr. Rowland Predominant single vessel CAD w/ no angiographic evidence of restenosis within Intervened upon segment LAD, reidentification of high grade small caliber jailed diagonal disease. Normal LV end-diastolic pressure. CARDIAC CATHETERIZATION 01/14/[address] Phillips CARDIAC CATHETERIZATION 11/24/[address] Rowland COLONOSCOPY 05/27/2015 CORONARY ANGIOPLASTY 12/25/2014 PCI with balloon angioplasty by Dr. Whitney of jailed diagonal CORONARY STENT PLACEMENT 05/09/2012 Drug eluted Alpine stent in the left anterior descending by Dr. Rowland CORONARY STENT PLACEMENT 09/24/2014 Subacute stent thrombosis by Dr. Whitney. This may be in the setting of areas of restenosis within the LAD stent CV IR INTERVENTIONAL RADIOLOGY Left 02/03/2019 Procedure: IR THORACENTESIS LEFT; Surgeon: Gilmer Zelaya MD; Location: IR LAB; Service: Interventional Radiology ETHMOIDECTOMY Bilateral 06/25/[address] Gaitan HC LEFT HEART CATH N/A 01/20/2019 Procedure: Left Heart Cath; Surgeon: Carlo Mercedes MD; Location: [facility]; Service: Cardiovascular IABP placement 05/09/[address] Rowland NASAL SEPTUM SURGERY 06/25/[address] Gaitan ROTATOR CUFF REPAIR Right 1997 SHOULDER ARTHROSCOPY W/ SUPERIOR LABRAL ANTERIOR POSTERIOR REPAIR Left 11/2012 @ [facility] SHOULDER ARTHROSCOPY W/ SUPERIOR LABRAL ANTERIOR POSTERIOR REPAIR Left 11/22/2011 shoulder arthroscopic anterior capsulorraphy, SLAP repair, acromioplasty, limited debridement of labrum and rotator cuff by Dr. Sexton SINUSOTOMY Bilateral 06/25/2007 with removal of tissue by Dr. Gaitan UPPER GASTROINTESTINAL ENDOSCOPY 2015 For complete objective data, detailed plan of care and patient education refer to: PT EVALUATION flow sheet, PT TREATMENT flow sheet, patient Plan of Care, Plan of Care progress note, and Patient Education. This note stands as the current Discharge Summary upon patient discharge from the hospital or completion of Physical Therapy Plan of Care. Associated Order(s): IP CONSULT TO NEUROLOGY Clinical history is highly suspicious of posterior circulation TIA. Patient has several risk factors for stroke. Strong family history of cardiovascular and cerebrovascular comorbidities. Posterior circulation TIA Etiology: Hypertensive, small vessel Testing: MRI: Negative for strokes. CT angiogram: No major vessel stenosis. No major evidence of atherosclerotic changes at this time either. Echocardiogram from 2018 shows normal ejection fraction. Cardiac Rhythm: NO Afib noted to date Anti-thrombotic: Indefinite ASA 81 + Plavix 75 mg Anti-lipid Agent: Lipitor (atorvastatin) 40 mg BP Goal: Less than 130/80; AVOID hypotension; Attending Service to manage Glucose Goal: Normoglycemia/ A1c less than 6.5. Attending Service to manage. Tobacco: Counseled to not smoke/use tobacco. Attending Service to manage. Therapy (Assessed for Rehab): Yes, already assessed DVT Prophylaxis: Okay to DC Eventual Outpatient Follow-up: [facility] in 4 weeks Attestation: I have personally performed a face to face evaluation on this patient on 09/23/2019 I have reviewed and agree with the care plan documented by the HEALTH DIAGNOSTICS TEACHER. Time statement: A total of 70 minutes were spent on this encounter either in the patient's room or on the patient's hospital unit and over half of that time was spent on [id number] counseling and/or coordination of care. TANNER PALMA MSc, . [email or web address] Staff Neurologist & Movement Disorder Specialist [facility] (Adj Asst: Professor, [employer] Dept of Neurology) [id number], [address] Fax: [phone] NEUROLOGY NOTE [facility], [place] [address] floor [place] [address] Fax: [phone] Service date: 09/23/2019 Admit date: 09/22/2019 Fernando Helton is a 49 y.o. male who presented 09/22/2019 with complaints of weakness, slurred speech, altered mental status, double vision with blurred vision, and ataxia. He also reports frontal headache. present at beside. He woke around 5 AM stating he felt confused with slurred speech. Reports left arm and leg weakness. He denied any dizziness or lightheadedness but felt a back and forth movement sensation when upright with nausea. On the day prior to admission (09/21/2019) he states he felt like he couldn't get his legs to work right, left leg weakness minimal. His symptoms started to resolve towards the early afternoon on 09/22/2019 stating he has some patchy confusion with his admission, he does not remember coming to the hospital. Speech has improved but he feels he is still slurring his words. He reports left eye double vision still present but denies visual loss. Dizziness persists with intermittent nausea. CT brain negative. CTA head and neck showed no extracranial carotid or vertebral artery stenosis. Past medical history includes 3 heart attacks with stents and open heart January 2019. History of ISAC (noncompliant with CPAP), HTN, HLD, and DM. He monitors his blood pressure at home reporting readings 125-130/70's. He takes metoprolol tartrate 75 mg BID for HTN. Currently on dual antiplatelet for cardiac with aspirin 81 mg daily and Plavix 75 mg daily along with atorvastatin 20 mg daily. Hemoglobin A1C 6.4%, LDL 79, Triglycerides 192. He denies previous history of stroke or TIA. Family history positive for stroke with mother. Father with cardiac history including heart attack and TIA. Exam: Alert and oriented. PERRLA, no nystagmus or abnormal eye movements. Smile symmetrical, tongue is midline. Speech is relatively clear with some mild dysarthria. Mild weakness noted to LUE and LLE 4/5 with decreased tactile stimulation when compared to right side. Reflexes +1 throughout. No tremors or myoclonus. Negative Romberg. Orthostatic VS negative. * TIA (transient ischemic attack) Assessment & Plan - at 09/23/2019 2:20 PM TIA (Transient Ischemic Attack) Etiology: posterior circulation TIA Clinical features suggestive of posterior circulation TIA. Patient is at increased risk of stroke given PMH and family history. Risk factors and preventive measures were discussed at length with patient and spouse. Testing: CT Brain unremarkable, CTA head and neck showed no extracranial carotid or vertebral artery stenosis, MRI brain imaging reviewed with Dr. Palma revealing normal study. No need for echocardiogram. Labs: A1c (6.4%), Lipid panel (Fasting) - LDL 79 (goal less than 70) Cardiac Rhythm: NO Afib noted to date Anti-thrombotic: Aspirin 81 mg and Plavix 75 mg daily (previouly taking for cardiac) Anti-lipid Agent: Lipitor (atorvastatin) 40 mg - order modified BP Goal: Less than 220/110 for initial 48 hrs of admit/onset of stroke-like symptoms, then gradual steady reduction to normotension; AVOID hypotension; Attending Service to manage Glucose Goal: Normoglycemia/ A1c less than 6.5. Attending Service to manage. Tobacco: Counseled to not smoke/use tobacco. Attending Service to manage. Therapy (Assessed for Rehab): Pending evaluation DVT Prophylaxis: DVT prophylaxis per Attending Service. Eventual Outpatient Follow-up: In [facility] with Ginny Rushing CNP in 4 weeks. Further assessment and plan pending review with Dr. Palma. Ginny Rushing, MSN, HEALTH [employer] TE[employer]ER [facility] Neurology Associated Order(s): IP CONSULT TO CARE MANAGEMENT COMPLEX DISCHARGE Date: 09/22/2019 Time: 1:30 PM In to see patient. Patient was educated on the social service role. Patient is from home with spouse. Patient reports previous independence. Patient admitted for transient ischemic attack (TIA). Patient reports his deficits has since resolved. Patient does not anticipate having any discharge needs. Patient was advised to notify nursing if needs arise. Patient Name: Fernando Helton Date of : 1970 Sex: Male Discharge Planning Living Arrangements: Spouse/significant other Support Systems: Spouse/significant other Assistance Needed: Independent Type of Residence: Private residence Prior to Admission Home Care Services: No Patient expects to be discharged to:: Home Current Home Equipment: None Discharge Readiness Barriers to Discharge: No barriers [facility] Disposition D/C Disposition: Home Speech Pathology Communication / Cognition Eval Note Discharge Recommendations: Factors for Returning to Prior Level of Function Body Structure and Function: Neurologic impairment, Cardiopulmonary impairment Explain Impairments: hx of 3 heart attacks and CABG; labored breathing; workup for CVA Activities and Participation: Executive function limitation Explain Limitations: mild cognitive deficits Environmental Factors: Home situation Explain Environmental Factors: lives with Skilled Therapy Needs: Are Skilled Therapy Services Needed After Discharge: (further assessment needed) Impressions: Per H&P: Patient is a 49-year-old male with multiple medical problems including a history of coronary Artery disease status post CABG presents to the ED with multiple complaints including weakness , slurred speech , altered mental status, blurred vision and dizziness. Patient states symptoms occurred after after waking up this morning around 5:00am. In the ED patient is awake alert is answering questions appropriately his speech is clear no facial droop is noted GCS is 15 initial NIHSS is 2 initial vitals systolic blood pressure 136/80 pulse is 65 pulse ox is 98% on room air he is afebrile 97.7 Fahrenheit. Patient reports going to bed last night at 10 PM woke up at 5 AM this morning said when the patient woke up he was confused his speech was slurred he was weak in the left upper and lower leg, complained of blurred vision of both eyes and dizziness so family decided to drive patient immediately to the ED concering for stroke. Upon Arrival to the ED, the patient's symptoms have improved per patient and . No previous history of CVAs reported and no recent travel, hospitalization or sick contact reported. Pt was administered the MoCA as an informal assessment of cognitive skills. The MoCA assesses areas of visuospatial/executive funciton, naming, immediate/short-term memory, attention, language, abstract reasoning, and orientation. Normative score for > 12 years education is 26/30. Pt scored 21/30 this date. Patient had difficulties with recall of 5 words (improved with categorical or multiple choice cue), serial subtraction, and abstract reasoning. Patient reports ongoing memory deficits since hx of heart issues. Patient does not work, as he is disabled. Patient does drive and is independent with ADLs. Patient's speech was functional in conversational speech with no dysarthria noted. Patient passed swallow screen in ED and on diet at this time - patient eating salad during cog/comm assessment and denied need for swallowing evaluation. Oral/Motor: Oral Motor Impression-Severity Scale: WFL Vocal Quality: Within Functional Limits Intelligibility: Intelligible Breath Support: (adequate for speech but labored respirations) Auditory Comprehension: Auditory Comp Impression-Severity Scale: WNL Yes/No Questions: Within Functional Limits Commands: Within Functional Limits Conversation: WDL Hearing: Exceptions to WFL Hearing Exceptions: (patient asked for repetition of info 3-5x during eval) Visual Recognition: Visual Recognition Impression-Severity: WNL Reading Comprehension: Reading Comp Impression-Severity: (not assessed) Expression: Expression Impression-Severity: WNL Verbal Expression: Verbal Expression Impression-Severity: WNL Written Expression: Written Expression Impression-Severity: WNL Dominant Hand: Left Speech Cognition: Oriented X4 Speech Cognition Impression-Severity: Mild Attention: Exceptions to WFL Memory: Exceptions to WFL Immediate Memory: Independent / WFL Working Memory: Minimal Long-term Memory: Independent/WFL Problem Solving: Exceptions to WFL Simple Functional Tasks: Independent/WFL Verbal Reasoning Skills: Independent/WFL Numeric Reasoning: Exceptions to WFL Simple Calculations: Min assist 75-90% Abstract Reasoning: Exceptions to WFL Flexibility of Thought: Reduced flexibility Planning: Within functional limits Prior Level of Function: Prior Function Primary Language: Andorran Employment Status: Disabled Education Level: (11th grade) Prior Cognitive Deficit: (memory deficits following 3 heart attacks and CABG) Past Medical History: Diagnosis Date Acute respiratory failure ([facility]) 09/2014 requring mechanical ventilation Anxiety Bilateral lower extremity edema R > L CAD (coronary artery disease) CAD s/p [facility] with 1 stent in left main 07/2012, replaced 09/2014 Cardiac arrest with ventricular fibrillation ([facility]) 09/25/2014 CHF (congestive heart failure), NYHA class I, chronic, diastolic ([facility]) Chronic sinusitis Claudication of right lower extremity ([facility]) Cluster headache COPD (chronic obstructive pulmonary disease) ([facility]) 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 Bev Tolentino Metabolic syndrome Mood disorder ([facility]) Nasal fracture Obstructive sleep apnea noncompliant with CPAP Orthostatic dizziness with intermittent syncope Pericarditis 02/25/07; 09/23/17 Pneumomediastinum ([facility]) 01/12/2007 secondary to severe coughing spell & ruptured alveoli Rotator cuff tear, right 1998 s/p repair SLAP tear of shoulder 2011 left - s/p surgery to place [address] elevation myocardial infarction (STEMI) of anterolateral wall ([facility]) 05/09/2012 anterolateral STEMI involving left anterior descending coronary artery ([facility]) 09/25/2014 anterior Superficial thrombophlebitis of right upper extremity 12/26/2006 Past Surgical History: Procedure Laterality Date APPENDECTOMY 1999 BONE MARROW BIOPSY W/ ASPIRATION Left 11/27/2016 L posterior iliac crest; Dr. Bev Tolentino CABG OFF PUMP N/A 01/24/2019 Procedure: Coronary Artery Bypass graft x1 with Left Internal Mammary Artery graft, OFF PUMP; Surgeon: Neo Mcneil MD; Location: Main OR; Service: Cardiothoracic CARDIAC CATHETERIZATION 09/24/2014 Segment LV dysf., mild to moderate LV systolic impairment, moderate LV diastolic dysf.; single vessel CAD by Dr. Whitney CARDIAC CATHETERIZATION 05/09/2012 Emergent. Severe LVSD EF 20%; single vessel CAD with acute thrombotic occlusion of left anterior descending by Dr. Rowland CARDIAC CATHETERIZATION Left 09/28/2015 Dr. Rowland Predominant single vessel CAD w/ no angiographic evidence of restenosis within Intervened upon segment LAD, reidentification of high grade small caliber jailed diagonal disease. Normal LV end-diastolic pressure. CARDIAC CATHETERIZATION 01/14/[address] Phillips CARDIAC CATHETERIZATION 11/24/[address] Rowland COLONOSCOPY 05/27/2015 CORONARY ANGIOPLASTY 12/25/2014 PCI with balloon angioplasty by Dr. Whitney of jailed diagonal CORONARY STENT PLACEMENT 05/09/2012 Drug eluted Alpine stent in the left anterior descending by Dr. Rowland CORONARY STENT PLACEMENT 09/24/2014 Subacute stent thrombosis by Dr. Whitney. This may be in the setting of areas of restenosis within the LAD stent CV IR INTERVENTIONAL RADIOLOGY Left 02/03/2019 Procedure: IR THORACENTESIS LEFT; Surgeon: Gilmer Zelaya MD; Location: IR LAB; Service: Interventional Radiology ETHMOIDECTOMY Bilateral 06/25/[address] Gaitan LEFT HEART CATH N/A 01/20/2019 Procedure: Left Heart Cath; Surgeon: Carlo Mercedes MD; Location: [facility]; Service: Cardiovascular IABP placement 05/09/[address] Rowland NASAL SEPTUM SURGERY 06/25/[address] Gaitan ROTATOR CUFF REPAIR Right 1997 SHOULDER ARTHROSCOPY W/ SUPERIOR LABRAL ANTERIOR POSTERIOR REPAIR Left 11/2012 @ [facility] SHOULDER ARTHROSCOPY W/ SUPERIOR LABRAL ANTERIOR POSTERIOR REPAIR Left 11/22/2011 shoulder arthroscopic anterior capsulorraphy, SLAP repair, acromioplasty, limited debridement of labrum and rotator cuff by Dr. Sexton SINUSOTOMY Bilateral 06/25/2007 with removal of tissue by Dr. Gaitan UPPER GASTROINTESTINAL ENDOSCOPY 2016 For complete objective data, detailed plan of care, and education refer to: Speech Comm/Cog Eval flow sheet, as well as patient Plan of Care and Education documentation. This note stands as the current Discharge Summary upon patient discharge from the hospital or completion of Speech Pathology Plan of Care documented in this encounter Plan of Care - Grace Santos RN - 02/04/2019 9:02 AM ESTPlan of Care - Stacey Lo RN - 02/04/2019 12:46 AM ESTQuick Note - Stacey Lo RN - 02/04/2019 12:30 AM EST Miscellaneous Notes (unrecog nized section and content) Problem: Pain Goal: Manage acute pain Outcome: Completed Goal: Manage chronic pain Outcome: Completed Goal: Reduced pain sensation Outcome: Completed Goal: Achievement of comfort function goal Outcome: Completed Problem: Pressure Ulcer - Risk of Goal: Absence of pressure ulcer Outcome: Completed Problem: Plan for Discharge Goal: Knowledge of discharge plan and instructions Outcome: Completed Problem: Gas Exchange - Impaired Goal: Adequate oxygenation Outcome: Completed Problem: Tissue perfusion, ineffective Goal: Circulatory function within specified parameters Outcome: Completed PT DISCHARGED HOME WITH SPOUSE. Problem: Pain Goal: Manage acute pain Outcome: Partially Met Goal: Manage chronic pain Outcome: Partially Met Goal: Reduced pain sensation Outcome: Partially Met Goal: Achievement of comfort function goal Outcome: Partially Met Problem: Pressure Ulcer - Risk of Goal: Absence of pressure ulcer Outcome: Partially Met Problem: Plan for Discharge Goal: Knowledge of discharge plan and instructions Outcome: Partially Met Problem: Gas Exchange - Impaired Goal: Adequate oxygenation Outcome: Partially Met Problem: Tissue perfusion, ineffective Goal: Circulatory function within specified parameters Outcome: Partially Met Patient sleeping, resps 16 even and unlabored, HR 70s. Did not wake patient for blood pressure and temp. Problem: Pain Goal: Manage acute pain Outcome: Partially Met Goal: Manage chronic pain Outcome: Partially Met Goal: Reduced pain sensation Outcome: Partially Met Goal: Achievement of comfort function goal Outcome: Partially Met Problem: Pressure Ulcer - Risk of Goal: Absence of pressure ulcer Outcome: Partially Met Problem: Plan for Discharge Goal: Knowledge of discharge plan and instructions Outcome: Partially Met Problem: Gas Exchange - Impaired Goal: Adequate oxygenation Outcome: Partially Met Problem: Tissue perfusion, ineffective Goal: Circulatory function within specified parameters Outcome: Partially Met Pt readmitted with left pleural effusion. Pt had a left thoracentesis and removed 250ml bloody liquid. Pt remains to take percocet prn pain and gabapentin was added for pain relief. Pt remains with out falls on low fall risk with reassessment every 8 hours. Pt verbalizes understanding of safety precautions with use of side rails and call light. Continue to monitor blood sugars before breakfast and supper. Pt plans to discharge home with spouse. Pt up in chair at this time. States pain is tolerable. When attempting to assist patient walk to scale, pt's sharp stabbing pain returned and became short of breath. Returned pt to chair, SpO2 93%, VSS. Pt's pain returned to tolerable level after a few minutes of rest. Standing weight obtained with portable scale at chairside. Pt c/o severe sharp pain in L chest wall, worse with inspiration, short of breath. SpO2 maintains 92-94%. Assisted pt sit at edge of bed. Pain lessened to tolerable level after a few minutes. VSS. Pt to chair at this time. Problem: Pressure Ulcer - Risk of Goal: Absence of pressure ulcer Outcome: Met Problem: Tissue perfusion, ineffective Goal: Circulatory function within specified parameters Outcome: Met Problem: Pain Goal: Manage acute pain Outcome: Partially Met Goal: Manage chronic pain Outcome: Partially Met Goal: Reduced pain sensation Outcome: Partially Met Goal: Achievement of comfort function goal Outcome: Partially Met Problem: Gas Exchange - Impaired Goal: Adequate oxygenation Outcome: Partially Met Problem: Plan for Discharge Goal: Knowledge of discharge plan and instructions Outcome: Not Addressed Problem: Pain Goal: Manage acute pain Outcome: Partially Met Goal: Manage chronic pain Outcome: Partially Met Goal: Reduced pain sensation Outcome: Partially Met Goal: Achievement of comfort function goal Outcome: Partially Met Problem: Pressure Ulcer - Risk of Goal: Absence of pressure ulcer Outcome: Partially Met Problem: Plan for Discharge Goal: Knowledge of discharge plan and instructions Outcome: Partially Met Problem: Pain Goal: Manage acute pain Outcome: Partially Met Goal: Manage chronic pain Outcome: Partially Met Goal: Reduced pain sensation Outcome: Partially Met Goal: Achievement of comfort function goal Outcome: Partially Met Problem: Pressure Ulcer - Risk of Goal: Absence of pressure ulcer Outcome: Partially Met Problem: Plan for Discharge Goal: Knowledge of discharge plan and instructions Outcome: Partially Met Patient readmitted by MACEY Damon for shortness of breath and possible effusion. Diagnostic testing was reviewed with Dr. Gilliam and he determined patient should be admitted for monitoring and further testing. Problem: Pain Goal: Manage acute pain Outcome: Partially Met Goal: Manage chronic pain Outcome: Partially Met Goal: Reduced pain sensation Outcome: Partially Met Goal: Achievement of comfort function goal Outcome: Partially Met Problem: Pressure Ulcer - Risk of Goal: Absence of pressure ulcer Outcome: Partially Met Problem: Plan for Discharge Goal: Knowledge of discharge plan and instructions Outcome: Partially Met documented in this encounter Associated Problem(s): Nicotine abuse Patient reports he has discontinued tobacco abuse. Associated Problem(s): ISAC (obstructive sleep apnea) Noncompliant with CPAP therapy. Associated Problem(s): COPD (chronic obstructive pulmonary disease) ([facility]) Patient reports he has discontinued tobacco abuse. Associated Problem(s): Coronary artery disease involving [place] coronary artery of [place] heart without angina pectoris Patient has a long-standing history of cardiac disease beginning in April 2012 at which time he had presented with an acute anterolateral wall myocardial infarction. He underwent catheter base intervention with bare-metal stent placement to the left anterior descending at that time due to a history of profound medical noncompliance. He discontinued his medical regiment in September 2014 and had represented with an acute anterior wall myocardial infarction secondary to acute stent thrombosis. His procedure was complicated by ventricular fibrillation arrest. He underwent catheter base intervention with drug-eluting stent placement to the LAD at that time. He has chronic chest pain syndrome, and underwent relook angiography in December 2014 and had balloon intervention to a jailed diagonal branch. There was no angiographic evidence of restenosis within the left anterior descending, and his ejection fraction was 30%. Patient had presented with chest symptoms January 2019 and was found to have an occluded collateralized left anterior descending at the site of previous catheter-based intervention. LV ejection fraction was reported at 45% with anterior wall hypokinesis. 2D echocardiogram with an LV ejection fraction of 55% with akinesis of the mid and apical anteroseptal wall. Patient subsequent underwent left internal mammary grafting to the left anterior descending by Dr. Mcneil. Patient is not reporting a recurrence in his chest symptoms. We recommend he continue on his current medical regiment. Associated Problem(s): Mixed hyperlipidemia Patient should continue with high intensity plaque stabilization therapy. Associated Problem(s): Essential hypertension We have made no change in his current medical regiment. Associated Problem(s): TIA (transient ischemic attack) Patient had presented September 2019 with symptoms concerning for posterior circulation TIA. Seen in consultation by neurology. MRI unremarkable. CT angiography of the head and neck no extracranial or vertebral stenosis. No recurrence in symptom complex. I would like to obtain 2D echocardiogram to exclude intracardiac source of emboli and 30-day event recorder. Patient recommended by neurology for long-term dual antiplatelet therapy. documented in this encounter Refills needed to local pharmacy and last OV with Dr. Rowland on 10/15/19. documented in this encounter Problem: Actual or potential alteration in health Goal: Absence of healthcare acquired conditions Outcome: Completed Goal: Knowledge of Interdisciplinary Plan of Care Outcome: Completed Goal: Knowledge of Enviroment Outcome: Completed Problem: Pain Goal: Manage acute pain Outcome: Completed Goal: Manage chronic pain Outcome: Completed Goal: Reduced pain sensation Outcome: Completed Goal: Achievement of comfort function goal Outcome: Completed Problem: Plan for Discharge Goal: Knowledge of discharge plan and instructions Outcome: Completed Goal: Knowledge of discharge instructions Outcome: Completed Goal: Knowledge of medication management Outcome: Completed Problem: Breathing Pattern - Ineffective Goal: Effective breathing pattern Outcome: Completed Problem: Cardiac Output - Decreased Goal: Cardiac output within specified parameters Outcome: Completed Problem: Infection - Risk of, Surgical Site Infection Goal: Absence of infection signs and symptoms Outcome: Completed Problem: Venous Thromboembolism, Risk of Goal: Absence of venous thromboembolism Outcome: Completed Problem: Infection - Risk of, Urinary Catheter-Associated Urinary Tract Infection Goal: Absence of catheter associated urinary tract infection Outcome: Completed Problem: Serum Glucose Level - Abnormal Goal: Glucose level within specified parameters Outcome: Completed Problem: Falls, Risk of Goal: Absence of falls Outcome: Completed OCCUPATIONAL THERAPY VISIT VARIANCE NOTE Attempted to see patient at this time, but unable secondary to: OT Visit Variance: Patient Unavailable secondary to taking shower. Spoke with spouse who was present in room regarding follow up with with carry over of UE exs from cardiac booklet. Spouse reported they planned to obtain shower chair, if needed upon discharge. Will follow up as appropriate. Problem: Actual or potential alteration in health Goal: Absence of healthcare acquired conditions Outcome: Partially Met Goal: Knowledge of Interdisciplinary Plan of Care Outcome: Partially Met Goal: Knowledge of Enviroment Outcome: Partially Met Problem: Pain Goal: Manage acute pain Outcome: Partially Met Goal: Manage chronic pain Outcome: Partially Met Goal: Reduced pain sensation Outcome: Partially Met Goal: Achievement of comfort function goal Outcome: Partially Met Problem: Plan for Discharge Goal: Knowledge of discharge plan and instructions Outcome: Partially Met Goal: Knowledge of discharge instructions Outcome: Partially Met Goal: Knowledge of medication management Outcome: Partially Met Problem: Breathing Pattern - Ineffective Goal: Effective breathing pattern Outcome: Partially Met Problem: Cardiac Output - Decreased Goal: Cardiac output within specified parameters Outcome: Partially Met Problem: Infection - Risk of, Surgical Site Infection Goal: Absence of infection signs and symptoms Outcome: Partially Met Problem: Venous Thromboembolism, Risk of Goal: Absence of venous thromboembolism Outcome: Partially Met Problem: Infection - Risk of, Urinary Catheter-Associated Urinary Tract Infection Goal: Absence of catheter associated urinary tract infection Outcome: Partially Met Problem: Serum Glucose Level - Abnormal Goal: Glucose level within specified parameters Outcome: Partially Met Problem: Falls, Risk of Goal: Absence of falls Outcome: Partially Met Problem: Actual or potential alteration in health Goal: Absence of healthcare acquired conditions Outcome: Partially Met Goal: Knowledge of Interdisciplinary Plan of Care Outcome: Partially Met Goal: Knowledge of Enviroment Outcome: Partially Met Problem: Pain Goal: Manage acute pain Outcome: Partially Met Goal: Manage chronic pain Outcome: Partially Met Goal: Reduced pain sensation Outcome: Partially Met Goal: Achievement of comfort function goal Outcome: Partially Met Problem: Plan for Discharge Goal: Knowledge of discharge plan and instructions Outcome: Partially Met Goal: Knowledge of discharge instructions Outcome: Partially Met Goal: Knowledge of medication management Outcome: Partially Met Problem: Breathing Pattern - Ineffective Goal: Effective breathing pattern Outcome: Partially Met Problem: Cardiac Output - Decreased Goal: Cardiac output within specified parameters Outcome: Partially Met Problem: Infection - Risk of, Surgical Site Infection Goal: Absence of infection signs and symptoms Outcome: Partially Met Problem: Venous Thromboembolism, Risk of Goal: Absence of venous thromboembolism Outcome: Partially Met Problem: Infection - Risk of, Urinary Catheter-Associated Urinary Tract Infection Goal: Absence of catheter associated urinary tract infection Outcome: Partially Met Problem: Serum Glucose Level - Abnormal Goal: Glucose level within specified parameters Outcome: Partially Met Problem: Falls, Risk of Goal: Absence of falls Outcome: Partially Met Problem: Actual or potential alteration in health Goal: Absence of healthcare acquired conditions Outcome: Met Goal: Knowledge of Interdisciplinary Plan of Care Outcome: Met Goal: Knowledge of Enviroment Outcome: Met Problem: Breathing Pattern - Ineffective Goal: Effective breathing pattern Outcome: Met Problem: Infection - Risk of, Surgical Site Infection Goal: Absence of infection signs and symptoms Outcome: Met Problem: Venous Thromboembolism, Risk of Goal: Absence of venous thromboembolism Outcome: Met Problem: Infection - Risk of, Urinary Catheter-Associated Urinary Tract Infection Goal: Absence of catheter associated urinary tract infection Outcome: Met Problem: Serum Glucose Level - Abnormal Goal: Glucose level within specified parameters Outcome: Met Problem: Falls, Risk of Goal: Absence of falls Outcome: Met Problem: Pain Goal: Manage acute pain Outcome: Partially Met Goal: Manage chronic pain Outcome: Partially Met Goal: Reduced pain sensation Outcome: Partially Met Goal: Achievement of comfort function goal Outcome: Partially Met Problem: Cardiac Output - Decreased Goal: Cardiac output within specified parameters Outcome: Partially Met Problem: Plan for Discharge Goal: Knowledge of discharge plan and instructions Outcome: Not Addressed Goal: Knowledge of discharge instructions Outcome: Not Addressed Goal: Knowledge of medication management Outcome: Not Addressed PHYSICAL THERAPY VISIT VARIANCE NOTE Attempted to see patient at this time, but unable secondary to: PT Visit Variance: (declined d/t low BP). Will follow up as appropriate. Problem: Actual or potential alteration in health Goal: Absence of healthcare acquired conditions Outcome: Partially Met Goal: Knowledge of Interdisciplinary Plan of Care Outcome: Partially Met Goal: Knowledge of Enviroment Outcome: Partially Met Problem: Pain Goal: Manage acute pain Outcome: Partially Met Goal: Manage chronic pain Outcome: Partially Met Goal: Reduced pain sensation Outcome: Partially Met Goal: Achievement of comfort function goal Outcome: Partially Met Problem: Plan for Discharge Goal: Knowledge of discharge plan and instructions Outcome: Partially Met Goal: Knowledge of discharge instructions Outcome: Partially Met Goal: Knowledge of medication management Outcome: Partially Met Problem: Breathing Pattern - Ineffective Goal: Effective breathing pattern Outcome: Partially Met Problem: Cardiac Output - Decreased Goal: Cardiac output within specified parameters Outcome: Partially Met Problem: Infection - Risk of, Surgical Site Infection Goal: Absence of infection signs and symptoms Outcome: Partially Met Problem: Venous Thromboembolism, Risk of Goal: Absence of venous thromboembolism Outcome: Partially Met Problem: Infection - Risk of, Urinary Catheter-Associated Urinary Tract Infection Goal: Absence of catheter associated urinary tract infection Outcome: Partially Met Problem: Serum Glucose Level - Abnormal Goal: Glucose level within specified parameters Outcome: Partially Met Problem: Falls, Risk of Goal: Absence of falls Outcome: Partially Met Pt is POD #2 discontinued art line, chest tubes and rodriguez. Pt taking IV Tylenol and Percocet prn pain. Continue to monitor blood sugars before meals and HS with sliding scale coverage. Pt remains without falls on moderate fall riks with reassessment every 8 hours. Pt verbalizes understanding of safety precautions with use of side rails, call light and sternal precautions with use of heart hugger and pillow. Pt remains on room air with using IS and flutter valve. Pt with good cough effort along with deep breathing. Pt ambulating full laps. Pt plans to discharge home with spouse. Problem: Actual or potential alteration in health Goal: Knowledge of Interdisciplinary Plan of Care Outcome: Partially Met Problem: Actual or potential alteration in health Goal: Knowledge of Enviroment Outcome: Partially Met Problem: Pain Goal: Manage acute pain Outcome: Partially Met Problem: Pain Goal: Manage chronic pain Outcome: Partially Met Problem: Actual or potential alteration in health Goal: Absence of healthcare acquired conditions Outcome: Partially Met Goal: Knowledge of Interdisciplinary Plan of Care Outcome: Partially Met Goal: Knowledge of Enviroment Outcome: Partially Met Problem: Pain Goal: Manage acute pain Outcome: Partially Met Goal: Manage chronic pain Outcome: Partially Met Goal: Reduced pain sensation Outcome: Partially Met Goal: Achievement of comfort function goal Outcome: Partially Met Problem: Plan for Discharge Goal: Knowledge of discharge plan and instructions Outcome: Partially Met Goal: Knowledge of discharge instructions Outcome: Partially Met Goal: Knowledge of medication management Outcome: Partially Met Problem: Breathing Pattern - Ineffective Goal: Effective breathing pattern Outcome: Partially Met Problem: Cardiac Output - Decreased Goal: Cardiac output within specified parameters Outcome: Partially Met Problem: Infection - Risk of, Surgical Site Infection Goal: Absence of infection signs and symptoms Outcome: Partially Met Problem: Venous Thromboembolism, Risk of Goal: Absence of venous thromboembolism Outcome: Partially Met Problem: Infection - Risk of, Urinary Catheter-Associated Urinary Tract Infection Goal: Absence of catheter associated urinary tract infection Outcome: Partially Met Problem: Serum Glucose Level - Abnormal Goal: Glucose level within specified parameters Outcome: Partially Met Problem: Falls, Risk of Goal: Absence of falls Outcome: Partially Met Problem: Infection - Risk of, Ventilator-Associated Pneumonia Goal: Absence of pulmonary infection Outcome: Completed Pt is POD #1 remains with art line, chest tubes and rodriguez. Pt taking IV Tylenol and Percocet prn pain. Continue to monitor blood sugars every 2 hours while on insulin drip. Pt remains without falls on moderate fall riks with reassessment every 8 hours. Pt verbalizes understanding of safety precautions with use of side rails, call light and sternal precautions with use of heart hugger and pillow. Pt remains on room air with using IS and flutter valve. Pt with good cough effort alone with deep breathing. Pt plans to discharge home with spouse. Anesthesia Post-op Follow-up Note 1 Day Post-Op Procedure(s): Coronary Artery Bypass graft x1 with Left Internal Mammary Artery graft, OFF PUMP Introducer 01/24/19 Right Internal jugular (Active) Reassessment Unchd X 01/25/2019 8:45 AM Specific Qualities SLIC in place;SLIC placed;Obturator in place 01/25/2019 8:45 AM Site Assessment Clean;Dry;Intact 01/25/2019 8:15 AM [place] Introducer Lumen Status Infusing 01/25/2019 8:45 AM SLIC Lumen Status Capped 01/25/2019 8:45 AM RV/[place] Lumen Status Capped 01/25/2019 8:15 AM CVP/RA Lumen Status Infusing 01/25/2019 8:15 AM Infusion Catheter Lumen Status Infusing 01/25/2019 8:15 AM Infusion Wire Lumen Status Infusing 01/24/2019 7:09 PM Line Intervention Alcohol cap 01/25/2019 8:15 AM PA Catheter (cm) 55 cm 01/25/2019 8:15 AM PA Catheter Waveform Appropriate waveforms 01/25/2019 8:15 AM CVP Waveform Appropriate waveforms 01/25/2019 8:15 AM Pressurized Line Care Zeroed and calibrated;Leveled;Flushes easily;Flushed with saline;Pressure at 300mmHg;Connections checked and tightened 01/25/2019 8:15 AM SQI Level 1 01/25/2019 8:15 AM Dressing Type CHG patch (chlorhexidine);Transparent 01/25/2019 8:15 AM Dressing Status Clean;Dry;Intact 01/25/2019 8:15 AM Line Necessity Reviewed? Y 01/25/2019 8:15 AM Line Necessity Yes, meets criteria 01/25/2019 8:15 AM Line Necessity Reviewed With Dr. Gilliam 01/25/2019 8:15 AM Number of days: 1 Arterial Line 01/24/19 Right Brachial (Active) Reassessment Unchd 01/25/2019 6:00 AM Site Assessment Clean;Dry;Intact 01/25/2019 8:15 AM Line Status Pulsatile blood flow;Blood return noted 01/25/2019 8:15 AM Art Line Waveform Appropriate waveform;Whip 01/25/2019 8:15 AM Pressurized Line Care Zeroed and calibrated;Leveled;Flushes easily;Flushed with saline;Pressure at 300mmHg;Connections checked and tightened 01/25/2019 8:15 AM Color/Movement/Sensation Capillary refill less than/ equal to 3 sec 01/25/2019 8:15 AM Dressing Type Gauze 01/25/2019 8:15 AM Dressing Status Clean;Dry;Intact 01/25/2019 8:15 AM Number of days: 1 Pacer Wires 01/24/19 (Active) Reassessment Unchd 01/25/2019 4:00 AM Pacer Wire Status Atrial and ventricular wires connected to pacer 01/25/2019 8:15 AM Site Assessment Clean;Dry;Intact 01/25/2019 8:15 AM How Pacer Wires are Secured Atrial wires secured under dressing;Ventricular wires secured under dressing 01/25/2019 8:15 AM Dressing Status Clean;Dry;Intact 01/25/2019 8:15 AM Number of days: 1 Patient participation: patient participated Mental status: awake Pain management: adequate Anesthetic complications: no Nausea / vomiting: no Cardiovascular status: hemodynamically stable Respiratory / airway status: nasal cannula Postoperative hydration: acceptable Comment: Patient extubated, PAC removed. Patient able to walk to chair from bed. No anesthetic complications noted. Temp: [37.2 C-38.1 C] 37.8 C Heart Rate: [96-113] 106 Resp: [16-20] 18 BP: (150)/(88) 150/88 Arterial Line BP: (119-148)/(76-108) 126/76 Problem: Actual or potential alteration in health Goal: Absence of healthcare acquired conditions Outcome: Met Goal: Knowledge of Interdisciplinary Plan of Care Outcome: Met Goal: Knowledge of Enviroment Outcome: Met Problem: Infection - Risk of, Surgical Site Infection Goal: Absence of infection signs and symptoms Outcome: Met Problem: Infection - Risk of, Ventilator-Associated Pneumonia Goal: Absence of pulmonary infection Outcome: Met Problem: Venous Thromboembolism, Risk of Goal: Absence of venous thromboembolism Outcome: Met Problem: Infection - Risk of, Urinary Catheter-Associated Urinary Tract Infection Goal: Absence of catheter associated urinary tract infection Outcome: Met Problem: Serum Glucose Level - Abnormal Goal: Glucose level within specified parameters Outcome: Met Problem: Pain Goal: Manage acute pain Outcome: Partially Met Goal: Manage chronic pain Outcome: Partially Met Goal: Reduced pain sensation Outcome: Partially Met Goal: Achievement of comfort function goal Outcome: Partially Met Problem: Breathing Pattern - Ineffective Goal: Effective breathing pattern Outcome: Partially Met Problem: Cardiac Output - Decreased Goal: Cardiac output within specified parameters Outcome: Partially Met Problem: Plan for Discharge Goal: Knowledge of discharge plan and instructions Outcome: Not Addressed Goal: Knowledge of discharge instructions Outcome: Not Addressed Goal: Knowledge of medication management Outcome: Not Addressed Problem: Infection - Risk of, Ventilator-Associated Pneumonia Goal: Extubation within 24 hours after coronary artery bypass graft surgery Outcome: Completed Call placed to Dr. Martines about Wilsey line possibly not giving correct information based on waveform correlating with respirations. Dr. Martines was aware of the issue from OR and it wasn't a cause for concern because patient takes deep breaths. No new orders received. POC initiated. Problem: Actual or potential alteration in health Goal: Absence of healthcare acquired conditions Outcome: Partially Met Goal: Knowledge of Interdisciplinary Plan of Care Outcome: Partially Met Goal: Knowledge of Enviroment Outcome: Partially Met Problem: Pain Goal: Manage acute pain Outcome: Partially Met Goal: Manage chronic pain Outcome: Partially Met Goal: Reduced pain sensation Outcome: Partially Met Goal: Achievement of comfort function goal Outcome: Partially Met Problem: Plan for Discharge Goal: Knowledge of discharge plan and instructions Outcome: Partially Met Goal: Knowledge of discharge instructions Outcome: Partially Met Goal: Knowledge of medication management Outcome: Partially Met Problem: Breathing Pattern - Ineffective Goal: Effective breathing pattern Outcome: Partially Met Problem: Infection - Risk of, Surgical Site Infection Goal: Absence of infection signs and symptoms Outcome: Partially Met Problem: Infection - Risk of, Ventilator-Associated Pneumonia Goal: Absence of pulmonary infection Outcome: Partially Met Goal: Extubation within 24 hours after coronary artery bypass graft surgery Outcome: Partially Met Vancomycin 1250 mg IV q 12 hr x 48 hrs ordered for post-surgery. 48 yo male, 113 kg, srcr 1.19, crcl 69 ml/min DATE OF SURGERY: 01/24/19, TIME: 10:05 AM NAME OF SURGEON: Dr. Neo Bose. MD [place] Direct Service Provider: Kristin Walker PA-C ANESTHESIOLOGIST: Dr. Jef Martines TYPE OF ANESTHESIA: General PRE-OP DIAGNOSIS: Sclerotic heart disease of the [place] coronary arteries In-stent restenosis of the LAD. 1. Known coronary artery disease status post multiple stents to LAD 2. Essential hypertension 3. Hyperlipidemia 4. Chronic obstructive pulmonary disease 5. Obstructive sleep apnea noncompliant with CPAP 6. Morbid obesity with BMI greater than 40 per Medicare criteria 7. Former tobacco abuse 8. Anxiety disorder 9. Gastroesophageal reflux disease 10. Cluster headaches 11. Mood disorder 12. Metabolic syndrome 13. Chronic sinusitis 14. History of deviated septum 15. Internal hemorrhoids 16. Chronic bilateral lower extremity edema, right greater than left 17. Remote history of nasal fracture 18. Acute anterolateral STEMI on 05/09/2012 19. Acute anterior STEMI secondary to subacute LAD stent thrombosis on 09/24/2014- on chronic Effient, last dose 01/20/19 20. Cardiac arrest with ventricular fibrillation with ROSC on 09/24/2014 21. Acute respiratory failure requiring mechanical ventilation on 09/24/2014 22. Chronic diastolic congestive heart failure 23. Pneumomediastinum on 01/12/2007 CT secondary to severe coughing spell and ruptured alveoli 24. Pericarditis on 02/25/2007 and 09/23/2017 25. Right lower extremity claudication 26. Right cavernous hepatic lobe hemangioma 27. Superficial thrombophlebitis of the right forearm on 12/26/2006 28. Chronic orthostatic dizziness with witnessed syncopal episodes every month 29. Left groin lesion that intermittently produces malodorous white pus 30. Chronic leukocytosis with evaluation by Dr. Bev Tolentino in 11/2016 31. Unstable angina, on admission 32. Right external iliac artery stenosis, this admission 33. Newly diagnosed type 2 diabetes mellitus, this admission POST-OP DIAGNOSIS: Same PROCEDURE: Off-pump coronary artery bypass graft time 1 with left internal mammary artery to the left anterior descending artery.. EJECTION FRACTION: 40% INDICATIONS FOR SURGERY: 48 y.o. year-old male who presented with acute PA in the anterior wall after in-stent restenosis of her LAD stent. The patient was referred to cardiothoracic surgery for coronary artery bypass grafting. The cardiac catheterization revealed 100% occlusion at the level of the stent.. Benefits and possible complications were discussed with the patient and family. They verbalized understanding and are willing to proceed. INTRAOPERATIVE FINDINGS: Targets: Left anterior descending artery measuring 2 mm, Conduits: left internal mammary artery measuring 2 mm FLOW: good, Cardiac output after revascularization: 5 liters. Cardiac Index off bypass: 2.6 liters. DESCRIPTION OF PROCEDURE The patient was brought to the operating room, placed on the OR table in supine position. Appropriate IVs and monitoring lines were placed by Anesthesia. Patient was prepped and draped in a standard fashion for cardiac surgery. The mediasternotomy was performed, and the left internal mammary artery was dissected and mobilized from the left chest. The patient was heparinized for an ACT greater than 300. The distal SPARKS was then divided. The SPARKS was then prepared for anastomosis. I should mention that this vessel was a good quality vessel. The mediastinum was then dissected. The pericardium was incised and marsupialized. The heart was then rotated toward the right to expose the LAD. A myocardial preconditioning test was performed for 5 minutes. The patient did not develop any kind of ischemia. In fact, he was hemodynamically stable through out the whole maneuver. After a period of 5 minutes rest, we proceeded to occlude the LAD via proximal and distal control. The Campaign[employer]mp stabilization device was utilized to immobilize the area of anastomosis. The area of anastomosis selected was distal to the occluded stent. The arteriotomy was performed. We proceeded to perform a distal anastomosis between the left internal mammary artery to the left anterior descending artery in end-to-side fashion with 7-0 Prolene. The bulldog clamp was removed from the SPARKS and we noticed that the anastomosis was hemostatic. The SPARKS was fully dilated. We checked for pulsatile flow with the duplex as well as manually. The heparin was reversed with appropriate dose of protamine. Hemostasis was achieved with Bovie and clips. Ventricular pacing wires were placed. 3 chest tubes were placed, 2 in the mediastinum and 1 in left pleural pleural space. Once we were pleased with the hemostasis, the wound was then reapproximated following anatomical layers. The sternum was approximated with wires. Fascia and subcutaneous tissue were approximated with 0 Vicryl, and the skin was approximated with 3-0 Monocryl subcuticular. Patient tolerated the procedure well and was transferred to ICU in a stable condition. I was present and performed the whole operation. 'No qualified Resident was available to assist in the case therefore due to the complexity, Kristin CHOUDHURY, was utilized as my culture media laboratory assistant.' I broke scrub and went to update the family. DRIPS:Wu Garrett MD PEP therapy explained to patient and demonstrated by patient back to therapist. Problem: Actual or potential alteration in health Goal: Absence of healthcare acquired conditions Outcome: Partially Met Goal: Knowledge of Interdisciplinary Plan of Care Outcome: Partially Met Goal: Knowledge of Enviroment Outcome: Partially Met Problem: Pain Goal: Manage acute pain Outcome: Partially Met Goal: Manage chronic pain Outcome: Partially Met Goal: Reduced pain sensation Outcome: Partially Met Goal: Achievement of comfort function goal Outcome: Partially Met Problem: Plan for Discharge Goal: Knowledge of discharge plan and instructions Outcome: Partially Met Spoke to Doreen Goodwin NP regarding patient c/o heartburn. Orders received to increase Protonix to BID and PRN Tums. Attempted to reach [facility] regarding patient c/o persistent heartburn. Awaiting return phone call. Inpatient Cardiac Rehab PRE-OPERATIVE CARDIAC SURGERY TEACHING SESSION SCHEDULED SURGERY: CABG, off pump per Dr. Neo Mcneil Patient/family's understanding of procedure was reviewed and clarified as needed. Pre-operative preparation of NPO status, antimicrobial showers/wipes, jewelry/makeup removal and arrival time were reviewed Anticipated post-operative course was reviewed including coughing, deep breathing, use of incentive spirometry/flutter valve, sternal protection, Heart hugger, PRASAD hose, activity/diet progression, pain management (using pain scale), possible complications of receiving pain medications (confusion, constipation, nausea) and the resultant adjustment or discontinuation of same medication and use of wrist restraints to protect life support lines. Additional incisional care and leg elevation was stressed. Privacy issues were discussed and spouse was identified as contact manager. Use of Password was discussed CVICU visiting policies were discussed. Multidisciplinary sample steamer rounds were reviewed and family members/caregivers were encouraged to meet with them. Discharge needs were discussed. It is anticipated that ECF/Home Health Care will not be needed. Caregiver was identified as spouse. Questions were answered. Patient agrees to proceed with surgery as planned. Consents for surgery, possible blood transfusion, were obtained. Problem: Actual or potential alteration in health Goal: Absence of healthcare acquired conditions Outcome: Partially Met Goal: Knowledge of Interdisciplinary Plan of Care Outcome: Partially Met Goal: Knowledge of Enviroment Outcome: Partially Met Problem: Pain Goal: Manage acute pain Outcome: Partially Met Goal: Manage chronic pain Outcome: Partially Met Goal: Reduced pain sensation Outcome: Partially Met Goal: Achievement of comfort function goal Outcome: Partially Met Problem: Plan for Discharge Goal: Knowledge of discharge plan and instructions Outcome: Partially Met Pt awaiting open heart surgery, on Heparin drip. Pt denies any chest pain. Continue to monitor blood sugars before meals and HS. Pt remains without falls on low fall risk with reassessment every 8 hours. Pt verbalizes understanding of safety precautions with use of side rails and call light, Cardiac educator will do pre- op teaching today. Pt was given open heart notebook. Problem: Actual or potential alteration in health Goal: Absence of healthcare acquired conditions Outcome: Not Met Goal: Knowledge of Interdisciplinary Plan of Care Outcome: Not Met Goal: Knowledge of Enviroment Outcome: Not Met Problem: Pain Goal: Manage acute pain Outcome: Not Met Goal: Manage chronic pain Outcome: Not Met Goal: Reduced pain sensation Outcome: Not Met Goal: Achievement of comfort function goal Outcome: Not Met Pt into 3202 from short term. Oriented to room and call light given. Telemetry applied. at beside, questions answered and emotional support given. Report given to nurse at CVICU Associated Problem(s): ACS (acute coronary syndrome) (HCC) Patient presented 01/20/2019 with chest tightness associated with nausea and shortness of breath. Occasionally discomfort would radiate into the left jaw. Serial troponins have been negative, EKG showed old anterolateral PA with mild ST-T changes with d-dimer negative and BNP not being elevated. November 2018 echo showed an EF of 45%. Questionable possible apical LV thrombus with subsequent MRI done December 25 which did not show any evidence of LV thrombus. He had reported compliance to medicines which include aspirin and Effient. 01/20/2019 patient underwent left heart catheterization which showed single- vessel coronary artery disease with in-stent occlusion of LAD in mid segment. Noted to have moderate LV systolic dysfunction with hypokinesis of the mid to distal anterior wall. Elevated LVEDP of 32 mmHg. Cardiothoracic surgery was consulted for single-vessel CABG SPARKS to LAD. His Effient was placed on hold with continuation of aspirin and statin therapy. He was initiated on Lasix IV due to his elevated LVEDP. OHS is tentatively scheduled for 01/24/2019. General cardiology will sign off for now, please call with any additional questions or concerns. Associated Problem(s): PAD (peripheral artery disease) (HCC) Vascular was consulted regarding patient's PAD. This patient states that he has been having claudication symptoms in the right lower extremity for approximately 2 years. He admits that he has right leg pain when he stands for long periods of time or when he ambulates approximately 200 feet. He states that previously several physicians have noticed that he had an absent DP to the right however there was no follow- up on this. He has an extensive history of CAD with multiple interventions. During left heart catheterization yesterday 01/20/2019, Dr. Mercedes was unable to get the wire to cross the right external iliac artery leading to suspicion of atherosclerotic occlusion. This pt does have a history of nicotine dependence however, he state that he quit smoking approximately 7 to 8 months ago. Upon examination today patient has strong palpable pulses to left DP and bilateral PT. I was unable to palpate the right DP. He triphasic doppler signals to left DP and bilateral PT. Right DP is absent. There is no wounds to right lower extremity present. There is no ischemic changes the right lower extremity. His PAD appears chronic in nature. DERECK today: Right DERECK 1.26, TBI 1.08 and Left DERECK 1.33, TBI 1.12 Recommendations: This study has normal right leg DERECK and an unknown left leg DERECK due to non-compressibility as seen arterial calcification. Waveforms are satisfactory and triphasic at the ankles(though slightly stronger in the left leg compared to the right leg). Clinical correlation advised. Left heart catheterization 01/20/[address] Acosta Single-vessel coronary artery disease In-stent occlusion of LAD and mid segment Moderate LV systolic dysfunction with hypokinesis of mid to distal anterior wall Elevated LVEDP of 32 mmHg -Patient scheduled for CABG with Dr. Saavedra 01/24/2019 -We would recommend vein harvest from left leg if at all possible. If right leg is needed we would recommend harvesting vein in the proximal right lower extremity. -We will follow with Fernando in the office -Continue smoking cessation, high intensity statin, plavix, ASA Nutrition Care Initial Assessment Reason for visit: Dietitian Screen Nutrition Diagnosis: Limited adherence to nutrition related recommendations related to Cardiac disease as evidenced by s/p cardiac cath,2/2 CP. Nutrition Intervention: continue to encourage cardiac restrictions of high fat/sodium food items all Meal and Snacks Nutrition Prescription: Diet: Cardiac Oral nutrition supplement: n/a Tube Feeding: n/a Nutrition Goals: PO intake > 75% most meals Start Date:01/21/2019 Expected End Date:01/27/2019 Nutrition Education: offer cardiac teaching if patient receptive Assessment: Pertinent clinical information: obese, encourage gradual weight loss Past Medical History: Diagnosis Date Acute respiratory failure (HCC) 09/2014 requring mechanical ventilation Anxiety Bilateral lower extremity edema R > L CAD (coronary artery disease) CAD s/p [facility] with 1 stent in left main 07/2012, replaced 09/2014 Cardiac arrest with ventricular fibrillation ([facility]) 09/25/2014 CHF (congestive heart failure), NYHA class I, chronic, diastolic ([facility]) Chronic sinusitis Claudication ([facility]) Claudication of right lower extremity ([facility]) Cluster headache COPD (chronic obstructive pulmonary disease) ([facility]) 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 Bev Tolentino Metabolic syndrome Mood disorder ([facility]) Nasal fracture Obstructive sleep apnea noncompliant with CPAP Orthostatic dizziness with intermittent syncope Pericarditis 02/25/07; 09/23/17 Pneumomediastinum ([facility]) 01/12/2007 secondary to severe coughing spell & ruptured alveoli Rotator cuff tear, right 1998 s/p repair SLAP tear of shoulder 2011 left - s/p surgery to place [address] elevation myocardial infarction (STEMI) of anterolateral wall ([facility]) 05/09/2012 anterolateral STEMI involving left anterior descending coronary artery ([facility]) 09/25/2014 anterior Superficial thrombophlebitis of right upper extremity 12/26/2006 Height: 5' 7 Current weight: 116.6 kg (257 lb) BMI Body mass index is 40.25 kg/m . Weight hx: obesity Wt Readings from Last 5 Encounters: 01/17/19 116.6 kg (257 lb) 01/04/19 113.4 kg (250 lb) 12/26/18 113.9 kg (251 lb) 12/18/18 112.5 kg (248 lb) 11/26/18 112.5 kg (248 lb) Recent intake: 75-100%. Current intake meets estimated needs. Patient/family comments: appetite improved from admit Difficulty Chewing/Swallowing: No Skin Integrity: Intact GI Function: WNL Labs: Recent Labs 01/21/19 0607 NA 135 K 4.0 BICARB 26 CL 102 GLUCOSE 116* BUN 22 CREATININE 1.11 Scheduled Meds: aspirin 81 mg Oral Daily atorvastatin 20 mg Oral at bedtime budesonide-formoterol 2 puff Inhalation BID carvedilol 25 mg Oral BID with meals furosemide 20 mg Intravenous Q8H JUVENCIO ipratropium-albuterol 3 mL Nebulization Q6H JUVENCIO lisinopril 10 mg Oral Daily with lunch mupirocin Nasal BID nitroGLYCERIN 1 inch Topical Q6H pantoprazole 40 mg Oral Daily potassium chloride SA 10 mEq Oral Daily rOPINIRole 2 mg Oral Nightly varenicline 1 mg Oral BID Continuous Infusions: Estimated Energy Needs Total Energy Estimated Needs: 1800-2200cal Method for Estimating Needs: [id number],adjbw Total Protein Estimated Needs: 86gms Method for Estimating Needs: 1gm/kg,adjbw Fluid Needs Total Fluid Estimated Needs: per MD Will follow and monitor appropriately. Jony Armstrong DTR Patient continues to have chest pain/pressure. Will need open heart due to blockage of stent for the second time. Patient is aware and accepting. Awaiting surgery. Problem: Actual or potential alteration in health Goal: Absence of healthcare acquired conditions Outcome: Not Met Goal: Knowledge of Interdisciplinary Plan of Care Outcome: Met Goal: Knowledge of Enviroment Outcome: Met Problem: Pain Goal: Manage acute pain Outcome: Partially Met Goal: Manage chronic pain Outcome: Partially Met Goal: Reduced pain sensation Outcome: Partially Met Goal: Achievement of comfort function goal Outcome: Partially Met Patient is status post left heart cath this morning. Has in-stent occlusion of mid LAD -Consult CT surgery for SPARKS to LAD bypass cath lab technologist nurse here for patient, advised to give Effient and ASA along with other cardiac meds this morning, advised to stop heparin at this time, off unit with label pinker nurse Problem: Actual or potential alteration in health Goal: Absence of healthcare acquired conditions Outcome: Met Goal: Knowledge of Interdisciplinary Plan of Care Outcome: Met Goal: Knowledge of Enviroment Outcome: Met Problem: Pain Goal: Manage acute pain Outcome: Met Goal: Manage chronic pain Outcome: Met Goal: Reduced pain sensation Outcome: Met Goal: Achievement of comfort function goal Outcome: Met Pt states hasn't wore CPAP in a long time because puppy chewed cord and cost 100$. Encouraged pt to get fixed and use CPAP. Risks explained if not wearing CPAP for known ISAC. Pt requested new IV site. New 20G IV started in Left FA. Good blood return. Flushed without difficulty. Pt tolerated well. Zofran given for nausea. Pt resting in bed quietly and watching tv. Assessment complete. Heparin infusing without difficulty. Pt denies pain, chest pain, SOB. Normal sinus noted on monitor.Pt reminded of NPO status at midnight. Pt voiced understanding. No voiced needs/complaints when asked. Will continue to monitor. Call light in reach. Pt refusing nitro patch at this time Patient sitting at side of bed. Removed nitro paste due to headache. Declines any further nitro paste. States headache is resolved now. CP remains 5/10. Declines tylenol. Denies needs at this time. Dr. Carlo Gillespie from cardiology returned call from consult request, recommended checking for PNE and PE, starting nitro infusion or past 1 inch, and starting ACS heparin protocol. Updated Dr. Meron Roper, who requested stat d-dimer, and start the heparin and nitro paste. Consulted with Denisse Caruso SOUND TECHNICIAN SUPERVISOR to ensure ordering correct heparin order set. Also consulted Denisse DAVILA regarding patient stated allergy to nitrates, headache is not an allergy symptom, so OK to give. Orders placed. Telephone order received for CPAP Administered Tylenol per MAR for headache POC Initiated Problem: Actual or potential alteration in health Goal: Absence of healthcare acquired conditions Outcome: Partially Met Goal: Knowledge of Interdisciplinary Plan of Care Outcome: Partially Met Goal: Knowledge of Enviroment Outcome: Partially Met Problem: Pain Goal: Manage acute pain Outcome: Partially Met Goal: Manage chronic pain Outcome: Partially Met Goal: Reduced pain sensation Outcome: Partially Met Goal: Achievement of comfort function goal Outcome: Partially Met documented in this encounter Patient Is a 48-year-old male with a recent CABG presented to the ED initially evaluated by my colleague Dr. Suzanna Alejandro for shortness of breath for which further work-up was done in the ED including cardiac marker, CT pulmonary artery did show a small pericardial effusion which was presents previously after the surgery. I communicated with cardiothoracic Physician [place] Machine Operator Jacob and he recommends on discharging patient outpatient follow-up. In the ED patient is awake alert his vitals are stable pulse ox continues to be 97% room air he is afebrile blood pressure 131/78. Discharged with encouragement to call cardiothoracic surgery tomorrow and was to return to the ED for any worsening symptom and he expressed understanding. documented in this encounter Seen by Bristol to Home post discharge and reviewed AVS. Verbalized understanding and denies further needs. No PCP F/U and pt will make. Problem: Actual or potential alteration in health Goal: Knowledge of Enviroment Outcome: Met Problem: Actual or potential alteration in health Goal: Absence of healthcare acquired conditions Outcome: Partially Met Goal: Knowledge of Interdisciplinary Plan of Care Outcome: Partially Met Problem: Pain Goal: Manage acute pain Outcome: Partially Met Goal: Manage chronic pain Outcome: Partially Met Goal: Reduced pain sensation Outcome: Partially Met Goal: Achievement of comfort function goal Outcome: Partially Met Associated Problem(s): Nicotine abuse Patient states he has discontinued tobacco abuse. Associated Problem(s): Near syncope Patient admitted yesterday evening following apparent witnessed near syncopal spell. Cardiac markers not detectable. Electrocardiogram nonacute. 2D echocardiogram this morning reviewed with Dr. Bueno demonstrates LV ejection fraction of 40% with anteroseptal and anteroapical wall motion abnormality. No LV thrombus. No significant valvular heart disease. Current exam does not suggest evidence for cardiac decompensation. Recommend obtaining troponin level this morning. Recommend 30-day event recorder to exclude underlying dysrhythmia. Recommend no driving until results of ambulatory monitoring obtained. Discussed at length with patient and at the bedside this morning. We will follow-up in the ambulatory setting to review 30-day event recorder. Associated Problem(s): Mixed hyperlipidemia Patient should continue with high intensity plaque stabilization therapy. Associated Problem(s): TIA (transient ischemic attack) Patient had presented September 2019 with symptoms concerning for posterior circulation TIA. Seen in consultation by neurology. MRI unremarkable. CT angiography of the head and neck no extracranial or vertebral stenosis. No recurrence in symptom complex. I would like to obtain 2D echocardiogram to exclude intracardiac source of emboli and 30-day event recorder. Patient recommended by neurology for long-term dual antiplatelet therapy. Associated Problem(s): Coronary artery disease involving [place] coronary artery of [place] heart without angina pectoris Patient has a long-standing history of cardiac disease beginning in April 2012 at which time he had presented with an acute anterolateral wall myocardial infarction. He underwent catheter base intervention with bare-metal stent placement to the left anterior descending at that time due to a history of profound medical noncompliance. He discontinued his medical regiment in September 2014 and had represented with an acute anterior wall myocardial infarction secondary to acute stent thrombosis. His procedure was complicated by ventricular fibrillation arrest. He underwent catheter base intervention with drug-eluting stent placement to the LAD at that time. He has chronic chest pain syndrome, and underwent relook angiography in December 2014 and had balloon intervention to a jailed diagonal branch. There was no angiographic evidence of restenosis within the left anterior descending, and his ejection fraction was 30%. Patient had presented with chest symptoms January 2019 and was found to have an occluded collateralized left anterior descending at the site of previous catheter-based intervention. LV ejection fraction was reported at 45% with anterior wall hypokinesis. 2D echocardiogram with an LV ejection fraction of 55% with akinesis of the mid and apical anteroseptal wall. Patient subsequent underwent left internal mammary grafting to the left anterior descending by Dr. Mcneil. Patient is not reporting a recurrence in his chest symptoms. We recommend he continue on his current medical regiment. Associated Problem(s): Essential hypertension We have made no change in his current medical regiment. Associated Problem(s): COPD (chronic obstructive pulmonary disease) (HCC) Patient reports he has discontinued tobacco abuse. Associated Problem(s): ISAC (obstructive sleep apnea) Noncompliant with CPAP therapy. DATE: 10/16/2019 - care management following for 4 admits / year - pt has extensive cardiac history including VF arrest and open heart surgery in January of 2019 ASSESSMENT: 1. Near syncope PCP: Moises Patel MD - last office visit on 10/14/2019 TRANSPORTATION/PRESCRIPTION NEEDS: Do you have prescription coverage under your insurance carrier? Yes Do you take the medications prescribed? Yes In the past 12 months has lack of transportation kept you from medical appointments, getting medications, or getting things for daily living? No Do you have any difficulty paying for medications? No Who helps you manage sorting your medications? Family retrieves and sorts PATIENTS PERCEPTION OF HEALTH STATUS: Independent, Alert/Oriented, Willing to Participate and Relies on Family Do you have any cultural/spiritual connections or beliefs that would impact how we deliver your care? No PATIENT GOAL AFTER HOSPITALIZATION: resume daily activities and know what is causing dizziness FINANCIAL: Pt is on SS disability and has medicare a/b and d - denies any financial concerns at this time HOUSING/UTILITIES: Type of Residence: Private residence - multistory home - denies issues navigating stairs - lives with his , Hawa ADVANCED CARE PLANNING: no adv directives on file in care connect - discussed packet and they would like to have one ACTIVITIES OF DAILY LIVING PATIENT MAY NEED ASSISTANCE None; CURRENT DRIVERS OF HEALTH ongoing goals of care and normal disease progression Interventions: Evaluation for Goals of Care Readiness and Supportive Encouragement RECOMMENDATION: Met with the pt and his , Hawa in the room to discuss admission and d/c needs - the pt has an extensive cardiac history and also COPD - we discussed his copd and I provided him with the Know your Zone hand out - he will keep this for reference at home - pt has a nebulizer and cpap at home but he currently is unable to use his cpap due to the cord being unusable - he gets his cpap thru [facility] and he reports he is unable to afford to replace the cord - will call to see if pt would be eligible for new cpap machine if he were to see dr manuel and have new order - pt just had an echo today and is currently waiting to see dr Rowland regarding his plan of care - no d/c needs have been identified during this interview - care management will follow along for developing needs Call placed to [facility] to request new power cord for pt's cpap machine - [facility] states the pt's machine is 5 years old and they are unsure if they would have a power cord for this model - they suggest pt see dr Manuel and have order for new machine as medicare will cover new machine every 5 years - called pt to update him and he plans to follow up with dr Manuel ED Attestation: I was personally available for consult in the emergency department. I have reviewed the chart and agree with the documentation as recorded by the PAKO (Advanced Practice Provider), including the assessment, treatment plan, and disposition Presents the emergency department with episode of lightheadedness, and dizziness, He states he has a headache now and feels weak after, he did get diaphoretic with the episode lasted approximately 5 to 6 minutes, recently admitted for TIA, had cardiac surgery in January Neuro exam normal, no obvious visual deficit, 5/5 strength bilaterally cranial nerves II through XII intact, lungs clear, cardiac exam normal Patient presented with seem to be a syncopal event, recently seen by Dr. Rowland today, who is concerned about possible thrombolic events, may be causing his TIA, and given this admit patient was admitted for repeat echo and observation Plan of care initiated. Patient oriented to room and call light sytem. THIS TECH WORE SURGICAL MASK, GLOVES PATIENT WORE SURGICAL MASK documented in this encounter Associated Problem(s): CAD (coronary artery disease) He has quit smoking. Symptoms seem to be stable from an anginal standpoint. I reviewed with him his cardiac MRI, I do not think we need any additional diagnostic assessments today. Associated Problem(s): Heart failure (HCC) I believe he has acute on chronic diastolic heart failure. He has more edema today and his weight is up. He has been on 40 Lasix daily. He states he is not eating or drinking more than usual, he remains tobacco free which I applauded him. I am going to give him hydrochlorothiazide 25 mg to take 1/2-hour before he takes his Lasix for 3 consecutive days to try to diurese him. We will check a basic metabolic profile in a week. I have advanced his carvedilol to 25 twice a day. He is a little tachycardic today. We will check a NT proBNP level, his lungs did not sound significantly congested today. Finally he has been unable to do CPAP he has had some damage to his home symptom, he is going to try to get this replaced, I have emphasized to him and his that sleep apnea treatment will be critical to the success of treating his diastolic heart failure. I reviewed his echo and recent cardiac MRI with him, I do not think we need any additional diagnostic studies otherwise today. He will continue to follow in our heart failure clinic and we will periodically see him in the clinic otherwise. documented in this encounter Seen by Bristol to Home post discharge and reviewed AVS. Verbalized understanding and denies further needs. No PCP F/U and pt will make. Patient was high suspicious of a TIA per Dr. Palma. Went over stroke booklet with patient and . Problem: Mobility - Impaired Goal: Able to achieve maximum mobility level Outcome: Met Problem: Falls, Risk of Goal: Absence of falls Outcome: Met Problem: Plan for Discharge Goal: Knowledge of discharge plan and instructions Outcome: Met Problem: Stroke - Ischemic - Required Education Goal: Knowledge of personal stroke risk factors Outcome: Met Goal: Knowledge of stroke warning signs Outcome: Met Problem: Mobility - Impaired Goal: Able to achieve maximum mobility level 09/23/20191707 by Mustapha Hernandez RN Outcome: Met 09/23/2019 1329 by Mustapha Hernandez RN Outcome: Partially Met Problem: Falls, Risk of Goal: Absence of falls 09/23/2019 1708 by Mustapha Hernandez RN Outcome: Met 09/23/2019 1329 by Mustapha Hernandez RN Outcome: Met Problem: Plan for Discharge Goal: Knowledge of discharge plan and instructions 09/23/2019 170 by Mustapha Hernandez RN Outcome: Met 09/23/2019 1329 by Mustapha Hernandez RN Outcome: Partially Met Problem: Falls, Risk of Goal: Absence of falls Outcome: Met Problem: Mobility - Impaired Goal: Able to achieve maximum mobility level Outcome: Partially Met Problem: Plan for Discharge Goal: Knowledge of discharge plan and instructions Outcome: Partially Met Associated Problem(s): TIA (transient ischemic attack) TIA (Transient Ischemic Attack) Etiology: posterior circulation TIA Clinical features suggestive of posterior circulation TIA. Patient is at increased risk of stroke given PMH and family history. Risk factors and preventive measures were discussed at length with patient and spouse. Testing: CT Brain unremarkable, CTA head and neck showed no extracranial carotid or vertebral artery stenosis, MRI brain imaging reviewed with Dr. Palma revealing normal study. No need for echocardiogram. Labs: A1c (6.4%), Lipid panel (Fasting) - LDL 79 (goal less than 70) Cardiac Rhythm: NO Afib noted to date Anti-thrombotic: Aspirin 81 mg and Plavix 75 mg daily (previouly taking for cardiac) Anti-lipid Agent: Lipitor (atorvastatin) 40 mg - order modified BP Goal: Less than 220/110 for initial 48 hrs of admit/onset of stroke-like symptoms, then gradual steady reduction to normotension; AVOID hypotension; Attending Service to manage Glucose Goal: Normoglycemia/ A1c less than 6.5. Attending Service to manage. Tobacco: Counseled to not smoke/use tobacco. Attending Service to manage. Therapy (Assessed for Rehab): Pending evaluation DVT Prophylaxis: DVT prophylaxis per Attending Service. Eventual Outpatient Follow-up: In [facility] with Ginny Rushing CNP in 4 weeks. Pt awakened felt like he was sweaty blood sugar checked 113 snack offer pt refused Pt doesn't want to stand at this time for weight or see if dizziness still present. Support given Pt cont to have c/o dizziness when standing denies dizziness with turning head side to side. To be seen by Neuro Sunday. Problem: Mobility - Impaired Goal: Able to achieve maximum mobility level Outcome: Not Met Problem: Falls, Risk of Goal: Absence of falls Outcome: Not Met Problem: Plan for Discharge Goal: Knowledge of discharge plan and instructions Outcome: Not Met documented in this encounter Carlo Mercedes MD - 01/20/2019 8:24 AM Carlo Spencer MD - 01/18/2019 8:19 AM Meron Valenzuela MD - 01/17/2019 7:22 PM Nallely Ji CNP - 10/16/2019 12:56 AM EDT H&P Notes (unrecognized sect ion and content) INTERVAL HISTORY AND PHYSICAL Patient Name: Fernando Helton Admit Date: [id number] MR #: [id number] : 1970 The H&P has been reviewed and the patient has been examined. I concur with the findings of the H&P. There are no significant changes. It is appropriate to proceed with the planned procedure. Carlo Mecredes MD 01/20/2019 8:24 AM Reason for consult-chest pain SUN'AQ-patient is a pleasant 48-year-old man with medical history significant for CAD status post PCI to LAD in 2012 for PA presentation-presented again in 2014 with in-stent restenosis-underwent PCI, past history of smoking (quit about 8 months ago), hypertension, dyslipidemia and obesity. Patient reports that for last about 3 to 5 months he has been having episodes of chest pain which he describes as a sensation similar to his pain prior to the heart attack. He reports that the frequency of the episodes has increased recently. In last 2 to 4 weeks he reports getting about 5-7 episodes a week. He describes a typical episode as a sensation of squeeze in the chest as if someone is giving him a tight hug -associated with feeling of nausea and shortness of breath. He says that the symptoms resolve after he sits down and typically takes about 15 to 30 minutes before he feels better. He also notes that occasionally this discomfort radiates to the left jaw. Does not report any radiation into the arms or belly. He presented with a similar episode yesterday-his serial biomarkers have been negative, EKG shows old anterolateral PA with mild ST-T changes, d-dimer is negative and BNP is not elevated. His most recent echocardiogram is from November 2018 which shows an EF of 45%. There was also a question about possible apical LV thrombus-subsequent MRI done on December 25-did not show any evidence of LV thrombus. He reports compliance to medications which include aspirin and Effient. Past Medical History: Diagnosis Date Ankle swelling Anxiety Appendicitis 1998 s/p appendectomy 1998 CAD (coronary artery disease) CAD s/p LHC with 1 stent in left main 07/2012, replaced 09/2014 Chest pain Circulation problem right leg COPD (chronic obstructive pulmonary disease) ([facility]) Fatigue GERD (gastroesophageal reflux disease) Headache HLD (hyperlipidemia) HTN (hypertension) Metabolic syndrome Mood disorder ([facility]) Obstructive sleep apnea Pneumomediastinum ([facility]) 01/2007 Rotator cuff tear, right 1997 s/p repair SLAP tear of shoulder 2011 left - s/p surgery to place [address] elevation myocardial infarction (STEMI) of anterolateral wall ([facility]) 05/09/12 Past Surgical History: Procedure Laterality Date APPENDECTOMY 1998 CARDIAC CATHETERIZATION 09/2014 Segment LV dysf., mild to moderate LV systolic impairment, moderate LV diastolic dysf.; single vesselCAD CARDIAC CATHETERIZATION 04/2012 Severe LV systolic dysf., EF 20%; elevated LVEDP; segmental contraction abnormality of the LV; single vessel CAD with acute thrombotic occlusion of left anterior descending. CARDIAC CATHETERIZATION Left 09/28/2015 Dr. Rowland Predominant single vessel CAD w/ no angiographic evidence of restenosis within Intervened upon segment LAD, reidentification of high grade small caliber jailed diagonal disease. Normal LV end-diastolic pressure. COLONOSCOPY 05/27/2015 CORONARY STENT PLACEMENT 2012 Drug eluted Alpine stent in the left anterior descending CORONARY STENT PLACEMENT 2014 Subacute stent thrombosis which appears late. This may be in the settin g of areas of restenosis within the stent. Alpine XIENCE drug eluted stent OTHER SURGICAL HISTORY 05/27/2015 Endoscopy ROTATOR CUFF REPAIR Right 1997 SHOULDER ARTHROSCOPY W/ SUPERIOR LABRAL ANTERIOR POSTERIOR REPAIR Left 11/21/12 SHOULDER ARTHROSCOPY W/ SUPERIOR LABRAL ANTERIOR POSTERIOR REPAIR Left [address] 6 anchors SHOULDER SURGERY Left 05/08/2013 SINUS SURGERY 2008 or 2010 STENT PLACEMENT 05/09/12 and intraaortic balloon pump Social History Socioeconomic History Marital status: Spouse name: Not on file Number of children: Not on file Years of education: Not on file Highest education level: Not on file Occupational History Not on file Social Needs Financial resource strain: Not on file Food insecurity Worry: Not on file Inability: Not on file Transportation needs Medical: Not on file Non-medical: Not on file Tobacco Use Smoking status: Former Smoker Packs/day: 1.00 Last attempt to quit: 05/12/2016 Years since quittin.6 Smokeless tobacco: Never Used Tobacco comment: 20+ years. Quit May 12 Substance and Sexual Activity Alcohol use: Yes Alcohol/week: 0.0 standard drinks Comment: socially Drug use: Not Currently Sexual activity: Not on file Lifestyle Physical activity Days per week: Not on file Minutes per session: Not on file Stress: Not on file Relationships Social connections Talks on phone: Not on file Gets together: Not on file Attends pentecostal service: Not on file Active member of club or organization: Not on file Attends meetings of clubs or organizations: Not on file Relationship status: Not on file Other Topics Concern Not on file Social History Narrative Not on file Family History Problem Relation Age of Onset Heart attack Father Other Father high cholesterol Heart disease Father Other Mother high cholesterol Heart disease Mother Stroke Mother 64 Coronary artery disease Other Cancer Paternal Uncle unknown cancer Current Facility-Administered Medications Medication Dose Route Frequency Provider Last Rate Last Dose acetaminophen (TYLENOL) tablet 650 mg 650 mg Oral Q4H PRN Meron Roper MD 650 mg at 01/17/199 albuterol inhaler 2 puff 2 puff Inhalation Q6H PRN Meron Roper MD 2 puff at 01/17/19 1746 aspirin EC tablet 81 mg 81 mg Oral Daily Meron Roper MD atorvastatin (LIPITOR) tablet 20 mg 20 mg Oral at bedtime Meron Roper MD 20 mg at 01/17/19 2117 budesonide-formoterol (SYMBICORT) 160-4.5 mcg/actuation inhaler 2 puff 2 puff Inhalation BID Meron Roper MD 2 puff at 01/18/19 0811 carvedilol (COREG) tablet 25 mg 25 mg Oral BID with meals Meron Roper MD 25 mg at 01/17/19 1733 furosemide (LASIX) tablet 40 mg 40 mg Oral Daily Meron Roper MD heparin (porcine) 25,000 unit/250 mL(100 unit/mL) in D5W infusion 0-70 Units/kg/hr (Order-Specific) Intravenous Continuous Meron Roper MD 10.4 mL/hr at 01/18/19 0700 9 Units/kg/hr at 01/18/19 0700 heparin bolus from bag 0-5,000 Units 0-5,000 Units Intravenous Continuous PRN Meron Roper MD 5,000 Units at 01/18/19 0413 ipratropium-albuterol (DUO-NEB) 0.5-2.5 mg/3 ml nebulizer solution 3 mL 3 mL Nebulization Q6H JUVENCIO Meron Roper MD 3 mL at 01/18/19 0811 lisinopril (PRINIVIL,ZESTRIL) tablet 10 mg 10 mg Oral Daily with lunch Meron Roper MD nitroGLYCERIN (NITRO-BID) 2 % ointment 1 inch 1 inch Topical Q6H Meron Roper MD 1 inch at 01/17/192117 pantoprazole (PROTONIX) EC tablet 40 mg 40 mg Oral Daily Meron Roper MD potassium chloride SA (K-DUR,KLOR-CON) CR tablet 10 mEq 10 mEq Oral Daily Meron Roper MD prasugrel (EFFIENT) tablet 10 mg 10 mg Oral Daily Meron Roper MD rOPINIRole (REQUIP) tablet 2 mg 2 mg Oral Nightly Meron Roper MD 2 mg at 01/17/192116 varenicline (CHANTIX) tablet 1 mg 1 mg Oral BID Meron Roper MD 1 mg at 01/17/192116 Current Outpatient Medications Medication Sig Dispense Refill albuterol 90 mcg/actuation inhaler Inhale 2 puffs every 6 (six) hours as needed for wheezing or shortness of breath . aspirin 81 MG EC tablet Take 81 mg by mouth daily. atorvastatin (LIPITOR) 20 MG tablet Take 1 (one) tablet (20 mg total) by mouth daily . 90 tablet 3 budesonide-formoterol (Symbicort) 160-4.5 mcg/actuation inhaler Inhale 2 puffs 2 (two) times a day . carvedilol (COREG) 25 MG tablet Take 1 (one) tablet (25 mg total) by mouth 2 (two) times a day with meals . 180 tablet 3 enalapril (VASOTEC) 5 MG tablet Take 5 mg by mouth 2 (two) times a day . furosemide (LASIX) 40 MG tablet Take 1 (one) tablet (40 mg total) by mouth daily . 90 tablet 3 ipratropium-albuterol (DUO-NEB) 0.5-2.5 mg/3 ml nebulizer Take 3 mL by nebulization every 6 (six) hours . 360 mL 0 omeprazole (PRILOSEC) 40 MG capsule Take 40 mg by mouth daily potassium chloride (K-DUR) 10 MEQ CR tablet Take 10 mEq by mouth 2 (two) times a day . prasugrel (EFFIENT) 10 mg tablet Take 1 (one) tablet (10 mg total) by mouth daily . 90 tablet 3 rOPINIRole (REQUIP) 2 MG tablet Take 2 mg by mouth nightly. varenicline (CHANTIX) 1 mg tablet Take 1 mg by mouth 2 (two) times a day . enalapril (VASOTEC) 5 MG tablet TAKE 1 TABLET(5 MG) BY MOUTH TWICE DAILY 180 tablet 0 hydroCHLOROthiazide (HYDRODIURIL) 25 MG tablet Take 1 (one) tablet (25 mg total) by mouth daily . 90 tablet 3 potassium chloride SA (K-DUR,KLOR-CON) 10 MEQ tablet TAKE 1 TABLET(10 MEQ) BY MOUTH TWICE DAILY 180 tablet 0 Allergies: Imdur [isosorbide mononitrate] Review of system: All other system reviewed are negative Exam- BP 121/75 Pulse 79 Temp 97.8 F (36.6 C) (Oral) Resp 16 Ht 5' 7 Wt 116.6 kg (257 lb) SpO2 97% BMI 40.25 kg/m Body mass index is 40.25 kg/m . General- sitting comfortably, no acute cardiorespiratory distress HEENT- no pallor, no icterus, no cyanosis Neck- no JVD, no bruit Chest- bilateral clear breath sounds, no crackles, no rhonchi CVS- S1S2 normal, no rub, no murmur PA- abdomen soft, bowel sounds+ Swelling - none Skin/Ulcer - normal Neuro- alert oriented x 3 Pertient labs Lab Results Component Value Date WBC 11.26 (H) 01/17/2019 HGB 12.8 (L) 01/17/2019 HCT 38.7 (L) 01/17/2019 MCV 85.8 01/17/2019 EXTMCV 84.5 01/09/2018 PLT 227 01/17/2019 RBC 4.51 01/17/2019 GLUCOSE 125 (H) 01/17/2019 CALCIUM 8.1 (L) 01/17/2019 NA 138 01/17/2019 K 4.0 01/17/2019 CL 109 (H) 01/17/2019 BUN 22 01/17/2019 CREATININE 1.11 01/17/2019 ALT 67 (H) 01/17/2019 AST 28 01/17/2019 ALKPHOS 75 01/17/2019 BILITOT 0.9 01/17/2019 INR 1.0 01/17/2019 PROTIME 12.5 01/17/2019 PTT 31 01/18/2019 Lab Results Component Value Date TROPONINI <15 01/17/2019 TROPONINI <15 01/17/2019 TROPONINI <15 01/17/2019 NTPROBNP 123 01/17/2019 DDIMER <0.27 01/17/2019 A/P- Chest pain episodes- may represent angina Single-vessel CAD status post PCI 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 Obesity Hypertension Recent ex-smoker Plan - Given his risk factors and complaints of chest pain which is similar to his pain prior to the PA will plan for a left heart cath on 01/20/2019 - Continue heparin as per ACS protocol with a target APTT of 60 to 80 seconds - Okay to use Nitropaste - Continue aspirin, Effient, statin - Continue Coreg, enalapril and Lasix Electronically Signed by: Carlo Mercedes M.D 01/18/19 8:19 AM [facility] Medicine Inpatient H&P 01/17/2019 Meron Roper MD [facility] Patient: Fernando Helton Date of : 1970 (48 y.o.) PCP: Moises Patel MD Assessment Fernando Helton 48 y.o. male with history of coronary disease with history of PTCA and 2 stents, hypertension, hyperlipidemia, COPD, obstructive sleep apnea on CPAP, IBS, questionable congestive heart failure presented to the ED complaining of chest pain. As per patient around 6:30 AM he started having a chest pain which was midsternal sharp and at times it was 8-9 out of 10 intensity and can continues and also sometimes on and off it lasted for a few hours and he presented to ED and subsequently admitted to the telemetry right now patient has a mild discomfort as per the patient. Also associated with chest pain he was going up for some shortness of breath and sweating and at the time he was lightheaded and nauseated. Also his chest pain was getting worse on activity at times as per patient and his chest pain was radiating to his left jaw as per the patient. Right now he is chest pain-free. He said that he had a similar chest pain when he had a heart attack around 3 years ago as per patient. Denies any abdominal pain, no fever or chills, no cough, denies any syncopal episode or fall. Denies any burning micturition. Denies any nausea vomiting diarrhea or constipation Active Problems: Chest pain Plan: Will admit patient to the telemetry for observation. Patient has a chest pain is suggestive of new onset angina. Right now chest pain-free. Cycle troponins and telemetry monitoring. Resume home medications which include aspirin and other antiplatelet agents. Continue home medications for coronary disease including statins and beta- blockers. Continue CPAP at night. DVT prophylaxis. We will consult cardiology as patient has a significant underlying coronary disease and multiple risk factors. SUBJECTIVE: Chief Complaint: Chest pain History of Presenting Illness: Fernando Helton is a 48 y.o. male with past medical history of coronary disease with history of PTCA and 2 stents, hypertension, hyperlipidemia, COPD, obstructive sleep apnea on CPAP, IBS, questionable congestive heart failure presented to the ED complaining of chest pain. As per patient around 6:30 AM he started having a chest pain which was midsternal sharp and at times it was 8-9 out of 10 intensity and can continues and also sometimes on and off it lasted for a few hours and he presented to ED and subsequently admitted to the telemetry right now patient has a mild discomfort as per the patient. Also associated with chest pain he was going up for some shortness of breath and sweating and at the time he was lightheaded and nauseated. Also his chest pain was getting worse on activity at times as per patient and his chest pain was radiating to his left jaw as per the patient. Right now he is chest pain-free. He said that he had a similar chest pain when he had a heart attack around 3 years ago as per patient. Denies any abdominal pain, no fever or chills, no cough, denies any syncopal episode or fall. Denies any burning micturition. Denies any nausea vomiting diarrhea or constipation. Patient said that he had a recent follow-up with cardiology Dr. Whitney and had a MRI of the heart and other cardiac work-up done including echo as per patient. Denies any recent cardiac cath or any recent cardiac stress test. Review of Systems: All systems are reviewed and pertinent positives are mentioned in the history of present and past illness otherwise rest of the systems are reviewed and are negative. History: Past Medical History: Diagnosis Date Ankle swelling Anxiety Appendicitis 1998 s/p appendectomy 1998 CAD (coronary artery disease) CAD s/p [facility] with 1 stent in left main 07/2012, replaced 09/2014 Chest pain Circulation problem right leg COPD (chronic obstructive pulmonary disease) ([facility]) Fatigue GERD (gastroesophageal reflux disease) Headache HLD (hyperlipidemia) HTN (hypertension) Metabolic syndrome Mood disorder ([facility]) Obstructive sleep apnea Pneumomediastinum ([facility]) 01/2007 Rotator cuff tear, right 1997 s/p repair SLAP tear of shoulder 2011 left - s/p surgery to place [address] elevation myocardial infarction (STEMI) of anterolateral wall ([facility]) 05/09/12 Past Surgical History: Procedure Laterality Date APPENDECTOMY 1998 CARDIAC CATHETERIZATION 09/2014 Segment LV dysf., mild to moderate LV systolic impairment, moderate LV diastolic dysf.; single vesselCAD CARDIAC CATHETERIZATION 04/2012 Severe LV systolic dysf., EF 20%; elevated LVEDP; segmental contraction abnormality of the LV; single vessel CAD with acute thrombotic occlusion of left anterior descending. CARDIAC CATHETERIZATION Left 09/28/2015 Dr. Rowland Predominant single vessel CAD w/ no angiographic evidence of restenosis within Intervened upon segment LAD, reidentification of high grade small caliber jailed diagonal disease. Normal LV end-diastolic pressure. COLONOSCOPY 05/27/2015 CORONARY STENT PLACEMENT 2012 Drug eluted Alpine stent in the left anterior descending CORONARY STENT PLACEMENT 2014 Subacute stent thrombosis which appears late. This may be in the settin g of areas of restenosis within the stent. Alpine XIENCE drug eluted stent OTHER SURGICAL HISTORY 05/27/2015 Endoscopy ROTATOR CUFF REPAIR Right 1997 SHOULDER ARTHROSCOPY W/ SUPERIOR LABRAL ANTERIOR POSTERIOR REPAIR Left 11/21/12 SHOULDER ARTHROSCOPY W/ SUPERIOR LABRAL ANTERIOR POSTERIOR REPAIR Left [address] 6 anchors SHOULDER SURGERY Left 05/08/2013 SINUS SURGERY 2008 or 2010 STENT PLACEMENT 05/09/12 and intraaortic balloon pump Family History Problem Relation Age of Onset Heart attack Father Other Father high cholesterol Heart disease Father Other Mother high cholesterol Heart disease Mother Stroke Mother 64 Coronary artery disease Other Cancer Paternal Uncle unknown cancer Social History Tobacco Use Smoking Status Former Smoker Packs/day: 1.00 Last attempt to quit: 05/12/2016 Years since quittin.6 Smokeless Tobacco Never Used Tobacco Comment 20+ years. Quit May 12 Social History Substance and Sexual Activity Alcohol Use Yes Alcohol/week: 0.0 standard drinks Comment: socially Family and Social History reviewed as mentioned above. Allergies: Imdur [isosorbide mononitrate] Home Medications: Outpatient Medications as of 01/17/2019 Medication Sig aspirin 81 MG EC tablet Take 81 mg by mouth daily. atorvastatin (LIPITOR) 20 MG tablet Take 1 (one) tablet (20 mg total) by mouth daily . budesonide-formoterol (Symbicort) 160-4.5 mcg/actuation inhaler Inhale 2 puffs 2 (two) times a day . carvedilol (COREG) 25 MG tablet Take 1 (one) tablet (25 mg total) by mouth 2 (two) times a day with meals . furosemide (LASIX) 40 MG tablet Take 1 (one) tablet (40 mg total) by mouth daily . ipratropium-albuterol (DUO-NEB) 0.5-2.5 mg/3 ml nebulizer Take 3 mL by nebulization every 6 (six) hours . omeprazole (PRILOSEC) 40 MG capsule Take 40 mg by mouth daily prasugrel (EFFIENT) 10 mg tablet Take 1 (one) tablet (10 mg total) by mouth daily . rOPINIRole (REQUIP) 2 MG tablet Take 2 mg by mouth nightly. varenicline (CHANTIX) 1 mg tablet Take 1 mg by mouth 2 (two) times a day . enalapril (VASOTEC) 5 MG tablet TAKE 1 TABLET(5 MG) BY MOUTH TWICE DAILY hydroCHLOROthiazide (HYDRODIURIL) 25 MG tablet Take 1 (one) tablet (25 mg total) by mouth daily . potassium chloride SA (K-DUR,KLOR-CON) 10 MEQ tablet TAKE 1 TABLET(10 MEQ) BY MOUTH TWICE DAILY OBJECTIVE: Physical Examination: BP 131/87 Pulse 71 Temp 97.6 F (36.4 C) (Oral) Resp 16 Ht 5' 7 Wt 116.6 kg (257 lb) SpO2 96% BMI 40.25 kg/m General Appearance: Alert, well appearing, and in no acute distress. Pleasant gentleman HEENT: Head - Normocephalic, atraumatic. Eyes - ROSELINE bilaterally and EOMI. Ears - normal external appearance, hearing intact. Nose - normal, no erythema. No nasal discharge Throat - mucous membranes moist, pharynx without lesions. Neck: Supple, trachea midline. No neck stiffness Cardiovascular: S1, S2 normal. No murmurs, rubs, clicks or gallops appreciated. Trace pedal edema. Regular Respiratory: Lungs clear to auscultation, no wheezes, rales or rhonchi heard. Abdomen: Soft, non-tender, normal bowel sounds, non-distended, no masses or organomegaly appreciated. Neurological: Grossly normal motor and sensory exam. No focal deficits. Musculoskeletal: No joint tenderness, deformity or swelling. Trace pedal edema Skin: Normal coloration and turgor. No rashes. Psych: Alert, oriented x 3. Normal mood and affect. Laboratory and Additional Data Reviewed: Results/Medications Reviewed 01/17/19 7:22 PM: Results from last 7 days Lab Units 01/17/19 1208 SODIUM mmol/L 138 POTASSIUM mmol/L 4.0 CHLORIDE mmol/L 109* BUN mg/dL 22 CREATININE mg/dL 1.11 GLUCOSE mg/dL 125* CALCIUM mg/dL 8.1* Results from last 7 days Lab Units 01/17/19 1208 WBC K/mcL 12.08* HGB g/dL 13.6 HCT % 41.5 PLT K/mcL 269 Results from last 7 days Lab Units 01/17/19 1753 01/17/19 1450 01/17/19 1208 TROPONIN I ng/L <15 <15 <15 Results from last 7 days Lab Units 01/17/19 1208 INR 1.0 Results from last 7 days Lab Units 01/17/19 1208 ALK PHOS U/L 75 BILIRUBIN TOTAL mg/dL 0.9 BILIRUBIN DIRECT mg/dL 0.2 TOTAL PROTEIN g/dL 6.2 ALTR U/L 67* AST U/L 28 EKG reviewed and around similar changes as compared to previous EKG. CULTURES: Reviewed 7:22 PM IMAGING: Reviewed 7:22 PM documented in this encounter [facility] Medicine Inpatient H&P 10/16/2019 Nallely Goodwin CNP [facility] Patient: Fernando Helton Date of : 1970 (49 y.o.) PCP: Moises Patel MD ASSESSMENT/PLAN: Fernando Helton 49 y.o. male with history of HTN, HLD, CAD sp 1v CABG, COPD, DM Type II, ISAC non compliant CPAP, cardiac arrest VFib in 2014, chronic diastolic heart failure, GERD. Active Problems: Near syncope Coronary artery disease involving [place] coronary artery of [place] heart without angina pectoris COPD (chronic obstructive pulmonary disease) ([facility]) PLAN: Admit to med surg cardiac monitoring Near Syncope - consult cardiology - echo in AM - serial troponins - orthostatic vital signs Leukocytosis - has been on oral steroids for URI. CAD - hx of 1v CABG - hx of VFib arrest in 2014. - continue home medications COPD - continue home medications - recently diagnosed with exacerbation: prescribed Prednisone taper and Azithromycin DM Type II - Accucheck AC/HS with ISS coverage. - continue home medications DVT prophalaxis Please see orders SUBJECTIVE: Chief Complaint/Reason for Visit: near syncope History of Present Illness: Fernando Helton is a 49 y.o. male presenting from ED with complaint of near syncope. The patient presents to the ED following a near syncopal episode. The patient has no recollection of the event so information was obtained from the patient's . The patient was working on his knees when he suddenly began swaying back and forth with tremoring noted. He then became diaphoretic and clammy with eyes rolling back but still able to verbally respond to yes/no questions. She states that he never fully lost consciousness and only complained of not feeling right. EMS was summoned and he was brought to the ED for further evaluation and treatment. Upon evaluation, he had routine labs drawn which were unremarkable. CXR was negative. EKG was negative for acute ST changes. He was referred for admission for further management. Past Medical History: Diagnosis Date Acute respiratory failure ([facility]) 09/2014 requring mechanical ventilation Anxiety Bilateral lower extremity edema R > L CAD (coronary artery disease) CAD s/p [facility] with 1 stent in left main 07/2012, replaced 09/2014 Cardiac arrest with ventricular fibrillation (HCC) 09/25/2014 CHF (congestive heart failure), NYHA class I, chronic, diastolic (HCC) Chronic sinusitis Claudication of right lower extremity (HCC) Cluster headache COPD (chronic obstructive pulmonary disease) ([facility]) 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 Bev Tolentino Metabolic syndrome Mood disorder ([facility]) Nasal fracture Obstructive sleep apnea noncompliant with CPAP Orthostatic dizziness with intermittent syncope Pericarditis 02/25/07; 09/23/17 Pneumomediastinum ([facility]) 01/12/2007 secondary to severe coughing spell & ruptured alveoli Rotator cuff tear, right 1997 s/p repair SLAP tear of shoulder 2011 left - s/p surgery to place [address] elevation myocardial infarction (STEMI) of anterolateral wall ([facility]) 05/09/2012 anterolateral STEMI involving left anterior descending coronary artery ([facility]) 09/25/2014 anterior Superficial thrombophlebitis of right upper extremity 12/26/2006 Past Surgical History: Procedure Laterality Date APPENDECTOMY 1998 BONE MARROW BIOPSY W/ ASPIRATION Left 11/27/2016 L posterior iliac crest; Dr. Bev Tolentino CABG OFF PUMP N/A 01/24/2019 Procedure: Coronary Artery Bypass graft x1 with Left Internal Mammary Artery graft, OFF PUMP; Surgeon: Neo Mcneil MD; Location: [facility]; Service: Cardiothoracic CARDIAC CATHETERIZATION 09/24/2014 Segment LV dysf., mild to moderate LV systolic impairment, moderate LV diastolic dysf.; single vessel CAD by Dr. Whitney CARDIAC CATHETERIZATION 05/09/2012 Emergent. Severe LVSD EF 20%; single vessel CAD with acute thrombotic occlusion of left anterior descending by Dr. Rowland CARDIAC CATHETERIZATION Left 09/28/2015 Dr. Rowland Predominant single vessel CAD w/ no angiographic evidence of restenosis within Intervened upon segment LAD, reidentification of high grade small caliber jailed diagonal disease. Normal LV end-diastolic pressure. CARDIAC CATHETERIZATION 01/14/[address] Phillips CARDIAC CATHETERIZATION 11/24/[address] Rowland COLONOSCOPY 05/27/2015 CORONARY ANGIOPLASTY 12/25/2014 PCI with balloon angioplasty by Dr. Whitney of jailed diagonal CORONARY STENT PLACEMENT 05/09/2012 Drug eluted Alpine stent in the left anterior descending by Dr. Rowland CORONARY STENT PLACEMENT 09/24/2014 Subacute stent thrombosis by Dr. Whitney. This may be in the setting of areas of restenosis within the LAD stent CV IR INTERVENTIONAL RADIOLOGY Left 02/03/2019 Procedure: IR THORACENTESIS LEFT; Surgeon: Gilmer Zelaya MD; Location: IR LAB; Service: Interventional Radiology ETHMOIDECTOMY Bilateral 06/25/[address] Gaitan HC LEFT HEART CATH N/A 01/20/2019 Procedure: Left Heart Cath; Surgeon: Carlo Mercedes MD; Location: [facility]; Service: Cardiovascular IABP placement 05/09/[address] Rowland NASAL SEPTUM SURGERY 06/25/[address] Gaitan ROTATOR CUFF REPAIR Right 1997 SHOULDER ARTHROSCOPY W/ SUPERIOR LABRAL ANTERIOR POSTERIOR REPAIR Left 11/2012 @ [facility] SHOULDER ARTHROSCOPY W/ SUPERIOR LABRAL ANTERIOR POSTERIOR REPAIR Left 11/22/2011 shoulder arthroscopic anterior capsulorraphy, SLAP repair, acromioplasty, limited debridement of labrum and rotator cuff by Dr. Sexton SINUSOTOMY Bilateral 06/25/2007 with removal of tissue by Dr. Gaitan UPPER GASTROINTESTINAL ENDOSCOPY 2016 Allergies: Imdur [isosorbide mononitrate] Home Medications: Outpatient Medications as of 10/15/2019 Medication Sig albuterol 90 mcg/actuation inhaler Inhale 2 puffs every 6 (six) hours as needed for wheezing or shortness of breath . aspirin 81 MG EC tablet Take 81 mg by mouth daily. atorvastatin (LIPITOR) 40 MG tablet Take 1 (one) tablet (40 mg total) by mouth nightly . blood sugar diagnostic (glucose blood) strips Use as directed before breakfast and supper Dx E11.65 . blood-glucose meter kit Use as instructed Dx E11.65 . budesonide-formoterol (Symbicort) 160-4.5 mcg/actuation inhaler Inhale 2 puffs 2 (two) times a day . clopidogreL (PLAVIX) 75 mg tablet Take 1 (one) tablet (75 mg total) by mouth daily . freestyle 28 gauge lancets USE DIRECTED BID BEFORE BREAKFAST AND SUPPER furosemide (Lasix) 20 MG tablet Take 1 (one) tablet (20 mg total) by mouth daily . lancets Misc Use as directed before breakfast and supper Dx E11.65 . metoprolol tartrate 75 mg Tab Take 75 mg by mouth 2 (two) times a day . omeprazole (PRILOSEC) 40 MG capsule Take 1 (one) capsule (40 mg total) by mouth daily . potassium chloride (K-DUR) 10 MEQ CR tablet Take 1 (one) tablet (10 mEq total) by mouth daily . rOPINIRole (REQUIP) 2 MG tablet Take 2 mg by mouth nightly. traZODone (DESYREL) 50 MG tablet Take 50 mg by mouth nightly as needed . Family History Problem Relation Age of Onset Heart attack Father Heart disease Father s/p cabg x 4 in his 40s Coronary artery disease Father Hypertension Father Hyperlipidemia Father Heart disease Mother Stroke Mother 64 Hyperlipidemia Mother Coronary artery disease Other Cancer Paternal Uncle unknown cancer Hypertension Sister Diabetes Brother Heart disease Brother s/p PCI Melanoma Brother Social History Tobacco Use Smoking Status Former Smoker Packs/day: 1.00 Years: 35.00 Pack years: 35.00 Quit date: 05/12/2016 Years since quittin.4 Smokeless Tobacco Never Used Tobacco Comment Quit 05/12/18 Review of Systems: All other systems reviewed and negative other than HPI OBJECTIVE: Physical Examination: BP (!) 155/75 Pulse 82 Temp 97.8 F (36.6 C) Resp 18 Ht 5' 6 Wt 117.9 kg (260 lb) SpO2 97% BMI 41.97 kg/m General Appearance: Alert and oriented x 3, In no apparent distress HEENT: Head: Normocephalic, no lesions, without obvious abnormality. Pharynx: Dental Hygiene adequate. Normal buccal mucosa. Normal pharynx. Neck: nontender, full range of motion, no mass, no focal lymphadenopathy Respiratory: clear to auscultation bilaterally, no wheezes or crackles, no tachypnea or accessory muscle use Cardiovascular: regular rate and rhythm, no murmur, brisk capillary refill Abdominal: soft, nontender, nondistended, no hepatosplenomegaly, no mass, normal bowel sounds Skin: no rashes, no jaundice. Normal coloration and turgor. No rashes. Neurological: Grossly normal motor and sensory exam. No focal deficits. Musculoskeletal: No joint tenderness, deformity or swelling. Psychiatric: Alert, oriented x 3. Normal mood and affect. Laboratory and Additional Data Reviewed: Reviewed 10/16/19 12:56 AM: Laboratory, Radiology and Medications Recent Results (from the past 24 hour(s)) EKG 12-lead Collection Time: 10/15/19 9:48 PM Result Value Ref Range Ventricular Rate 85 BPM Atrial Rate 85 BPM P-R Interval 170 ms QRS Duration 90 ms Q-T Interval 388 ms QTC Calculation (Bezet) 461 ms P [place] 61 degrees R [place] -4 degrees T [place] 80 degrees Alcohol, Medical Collection Time: 10/15/19 9:59 PM Result Value Ref Range Alcohol (Medical) <10.00 <10.00 mg/dL BMP Collection Time: 10/15/19 9:59 PM Result Value Ref Range Sodium 137 135 - 145 mmol/L Potassium 4.2 3.5 - 5.1 mmol/L Chloride 108 98 - 108 mmol/L Bicarbonate 23 21 - 32 mmol/L Anion Gap 10 10 - 20 mmol/L Glucose 203 (H) 65 - 99 mg/dL BUN 27 (H) 8 - 25 mg/dL Creatinine 1.41 (H) 0.50 - 1.30 mg/dL eGFR 58 (L) >=60 mL/min/1.73 m2 BUN/Creatinine Ratio 19.1 10.0 - 20.0 Calcium 9.0 8.4 - 10.2 mg/dL NT Pro BNP Collection Time: 10/15/19 9:59 PM Result Value Ref Range NT-Pro BNP 137 0 - 300 pg/mL Hepatic Function Panel (LFT) Collection Time: 10/15/19 9:59 PM Result Value Ref Range Total Protein 7.1 6.0 - 8.0 g/dL Albumin 3.5 3.2 - 5.2 g/dL Total Bilirubin 0.4 0.0 - 1.3 mg/dL Bilirubin, Direct 0.1 0.0 - 0.4 mg/dL Alkaline Phosphatase 106 40 - 150 U/L AST 21 0 - 45 U/L ALT 52 14 - 65 U/L PT/INR Collection Time: 10/15/19 9:59 PM Result Value Ref Range Protime (PT) 12.7 11.8 - 14.3 seconds INR 1.0 0.8 - 1.1 Troponin Collection Time: 09/02/20 9:59 PM Result Value Ref Range Troponin I <15 <=45 ng/L Troponin I Interpretation Normal CBC Auto Differential Collection Time: 10/15/19 9:59 PM Result Value Ref Range WBC 16.86 (H) 4.50 - 11.00 K/mcL RBC 5.37 4.50 - 5.90 M/mcL Hemoglobin 14.6 13.5 - 17.5 g/dL Hematocrit 45.2 41.0 - 53.0 % MCV 84.2 80.0 - 100.0 fL MCH 27.2 26.0 - 34.0 pg MCHC 32.3 31.0 - 37.0 g/dL Platelets 329 150 - 400 K/mcL RDW - CV 15.3 (H) 11.6 - 14.8 % MPV 10.5 9.4 - 12.4 fL Neutrophils 70.6 % Lymphocytes 19.9 % Monocytes 8.2 % Eosinophils 0.1 % Basophils 0.3 % IG Percent 0.90 % Neutrophils Abs 11.91 (H) 1.70 - 7.00 K/mcL Lymphocytes Abs 3.35 0.90 - 4.00 K/mcL Monocytes Abs 1.39 (H) 0.30 - 0.90 K/mcL Eosinophils Abs 0.01 0.00 - 0.50 K/mcL Basophils Abs 0.05 0.00 - 0.30 K/mcL IG Absolute 0.15 0.00 - 0.30 K/mcL Nucleated RBC 0.0 % Nucleated RBC Abs 0.00 0.00 - 0.00 K/mcL POC Glucose Collection Time: 10/15/19 10:04 PM Result Value Ref Range Glucose 189 (H) 65 - 99 mg/dL POC Glucose Collection Time: 10/15/19 10:08 PM Result Value Ref Range Glucose 189 (A) 65 - 99 mg/dL COVID-19, Molecular Collection Time: 10/15/19 11:25 PM Specimen: Nasopharyngeal; Swab Result Value Ref Range SARS-CoV-2 Not Detected Not Detected EKG: Reviewed 10/16/19 12:56 AM CULTURES: Reviewed 10/16/19 12:56 AM Radiology/Imaging: Reviewed 10/16/19 12:[address] Angiogram Head Neck Result Date: 09/22/2019 EXAMINATION: CT ANGIOGRAM HEAD NECK HISTORY: ORDERING SYSTEM PROVIDED HISTORY: Ataxia, stroke suspected, TECHNOLOGIST PROVIDED HISTORY: Illness/Other Reason for exam: Ataxia, stroke suspected Encounter Type: Initial Additional signs and symptoms: Ataxia, stroke suspected ORDERING SYSTEM PROVIDED DIAGNOSIS CODES: I63.9 Acute CVA (cerebrovascular accident) (HCC) COMPARISON: CT brain 09/22/2019. TECHNIQUE: Initial noncontrast images were obtained to determine the site of clinical interest. 75 mL of Isovue-370 was then injected. Sequential axial films were obtained. Coronal and sagittal reconstructions were generated from the axial data set. Coronal and sagittal MIP (maximum intensity projection) images were performed. Dose reduction techniques were achieved by using automated exposure control and/or adjustment of mA and/or kV according to patient size and/or use of iterative reconstruction technique. Carotid stenosis is reported according to NASCET criteria. FINDINGS: CT angiography of the neck: Great vessels arise from the aortic arch in their usual anatomic configuration without stenosis. The vertebral arteries arise from their respective subclavian arteries. They travel through the cervical foramen without evidence of dissection or occlusion. They coalesce at the skull base to form the basilar artery. The common carotid arteries are patent. At the bifurcation, there is no critical or significant stenosis seen. The internal carotid artery flow to the skull base is normal. CT angiography of the brain: The basilar artery is tortuous and terminates as the superior cerebellar and posterior cerebral arteries. The internal carotid arteries are patent. The cavernous loops show mild calcification but no narrowing. The anterior and the middle cerebral arteries are symmetrical. There is a normal-appearing anterior communicating artery. There is no intracranial stenosis or focal branch occlusion. Enhanced CT brain shows no areas of abnormal intraaxial or extraaxial enhancement. Soft tissue neck: Parotid and submandibular glands are homogeneous. The epiglottis is not well visualized due to patient motion. There is no airway compromise. 1. No extracranial carotid or vertebral artery stenosis. 2. Unremarkable intracranial CTA. 3. No enhancing intracranial process. [employer] Workstation ID: [id number] Ct Head Or Brain Without Contrast Result Date: 10/15/2019 EXAMINATION: CT HEAD OR BRAIN WITHOUT CONTRAST HISTORY: ORDERING SYSTEM PROVIDED HISTORY: TIA, initial exam, TECHNOLOGIST PROVIDED HISTORY: Illness/Other Reason for exam: SYNCOPAL EPISODE AND BECAME DIAPHORETIC Encounter Type: Initial Additional signs and symptoms: ORDERING SYSTEM PROVIDED DIAGNOSIS CODES: COMPARISON: 09/22/2019 CT head, 09/23/2019 MRI brain TECHNIQUE: Axial CT images of the brain from skull base to vertex, including portions of the face and sinuses, were obtained without contrast. Multiplanar 2D reformatted images were generated and reviewed. Dose reduction techniques were achieved by using automated exposure control and/or adjustment of mA and/or kV according to patient size and/or use of iterative reconstruction technique. FINDINGS: BRAIN: No acute intracranial hemorrhage. No extraaxial collection. No midline shift. No mass or mass effect. Caldwell-white matter differentiation preserved. CSF: Ventricles and sulci appropriate for age. Patent basal cisterns. ORBITS: The visualized orbital structures are unremarkable. PARANASAL SINUSES/MASTOID AIR CELLS: Postsurgical changes of the paranasal sinuses. Chronic sinusitis appears intervally improved compared to prior, particularly in the ethmoid region. The mastoid air cells are clear. SOFT TISSUES: Unremarkable. BONES: No acute osseous abnormality. No CT evidence of acute intracranial abnormality. Workstation ID: [id number] Ct Head Without Contrast (stroke) Result Date: 09/22/2019 EXAMINATION: CT HEAD WITHOUT CONTRAST (STROKE) HISTORY: ORDERING SYSTEM PROVIDED HISTORY: Dizziness, non-specific, TECHNOLOGIST PROVIDED HISTORY: Illness/Other Reason for exam: dizzines, stroke alert Encounter Type: Initial Additional signs and symptoms: no ORDERING SYSTEM PROVIDED DIAGNOSIS CODES: COMPARISON: None TECHNIQUE: CT examination of the head without IV contrast. Dose reduction techniques were achieved by using automated exposure control and/or adjustment of mA and/or kV according to patient size and/or use of iterative reconstruction technique. FINDINGS: There is no focal scalp soft tissue swelling or acute calvarial fracture. There is extensive paranasal sinus mucosal thickening with partial opacification of ethmoid air cells. There are no paranasal sinus air-fluid levels. Bilateral mastoid air cells are clear. Ventricles and sulci are normal and symmetric bilaterally. There is no acute intraparenchymal hemorrhage, extra-axial fluid collection, mass lesion, or acute large vessel ischemia by noncontrast CT. 1. No acute intracranial hemorrhage or large vessel ischemia by noncontrast CT. 2. Chronic paranasal sinus disease. If patient has a focal neurologic deficit or there is clinical suspicion for acute cerebrovascular accident, brain MRI may be performed for further evaluation. Workstation ID: [id number] Mr Brain With And Without Contrast Result Date: 09/23/2019 EXAMINATION: MR BRAIN WITH AND WITHOUT CONTRAST HISTORY: dizziness, blurred vision left eye, generalized weakness, r/o stroke Injury/Trauma or Illness?:Illness/Other How long have you had these symptoms (acute/chronic)?:Acute Reason for exam?:came into ER yesterday weakness , slurred speech , altered mental status, blurred vision and dizziness Type of Exam?:Initial Additional signs and symptoms?:. I63.9 Acute CVA (cerebrovascular accident) (HCC) Injury/Trauma or Illness?:Illness/Other How long have you had these symptoms (acute/chronic)?:Acute COMPARISON: Prior CT head dated 09/22/2019 TECHNIQUE: Multiplanar multiecho sequences were performed through the brain utilizing T1 and T2 weighting, as well as T2 gradient echo sequences, and axial diffusion weighted images. 3 planes T1 postcontrast as well as T2 gradient echo sequences, and axial diffusion weighted images. Imaging was performed with and without contrast administration: 20 mL of contrast:DOTAREM FINDINGS: Diagnostic Quality: Slightly degraded by motion. The brain sulci and ventricles are within normal limits for patient age. There is no significant white matter changes were noted. There is no intraparenchymal mass, mass effect or midline shift is noted. No abnormal extra-axial fluid collections are seen. The basal cisterns are patent. No evidence of acute infarction or definite intracranial hemorrhage within the limitation the study. Vascular Flow Voids: Normal. Paranasal Sinuses and Mastoid Air Cells: There is circumferential mucosal thickening in the maxillary and ethmoidal sinuses and frontal sinuses. The mastoid air cells are grossly clear. Orbits: No definite masses within the limitations of the study. Extracranial Findings: None. Craniocervical Junction and Skull Base: No tonsillar ectopia or mass is present.. No acute intracranial abnormality and no abnormal enhancement within the limitation of the study. Workstation ID: [id number] Xr Chest 1 View Result Date: 10/15/2019 EXAMINATION: XR CHEST PA/AP, 10/15/2019 HISTORY: diaphoresis COMPARISON: Chest, 09/22/2019. FINDINGS: Sternotomy wires are unchanged. Cardiac size, mediastinal contour and pulmonary vascularity appear within normal limits. The lungs are well expanded and appear clear. No acute cardiopulmonary disease. Workstation ID: [id number] Xr Chest 1 View Result Date: 09/22/2019 EXAMINATION: XR CHEST PA/AP 09/22/2019 7:58 am HISTORY: ORDERING SYSTEM PROVIDED HISTORY: weakness, slured speech, altered mental status, TECHNOLOGIST PROVIDED HISTORY: Illness/Other Reason for exam: weakness, slured speech, altered mental status Cancer History: u Surgery, RadiationHistory: yes Encounter Type: Initial Additional signs and symptoms: low BP ORDERING SYSTEM PROVIDED DIAGNOSIS CODES: COMPARISON: CT pulmonary angiogram 02/25/2019. FINDINGS: Prior median sternotomy noted. The heart size is mildly prominent. No dense consolidation, effusion, edema, failure or pneumothorax is noted. No acute osseous abnormality is otherwise identified. 1. Prior median sternotomy with mild cardiomegaly. 2. No acute cardiopulmonary process otherwise suspected. [facility] Workstation ID: [id number] Interpretation of Testing: I personally reviewed the EKG and Chest X-ray and agree with the interpretation(s). Associated attestation - Juan, Roby Hanley MD - 10/16/2019 6:42 AM EDT Patient seen and managed independently by HEALTH DIAGNOSTICS TEACHER. I did not participate in the care of this patient, but was available for immediate consultation if requested by the HEALTH DIAGNOSTICS TEACHER. documented in this encounter [facility] Medicine Inpatient H&P 09/22/2019 Good Macias MD [facility] Patient: Fernando Helton Date of : 1970 (49 y.o.) PCP: Moises Patel MD Assessment Fernando Helton 49 y.o. male with history of hypertension dyslipidemia diabetes coronary artery disease status post CABG presenting with slurred speech altered mental status which has resolved at arrival to ED Principal Problem: TIA (transient ischemic attack) Active Problems: Essential hypertension Mixed hyperlipidemia Coronary artery disease involving [place] coronary artery of [place] heart without angina pectoris GERD (gastroesophageal reflux disease) PAD (peripheral artery disease) ([facility]) Plan: Admit for observation Continue on telemetry CT brain and CTA was reviewed with patient Continue aspirin Plavix statin Consult neurology for further evaluation Check another troponin Further management depending on patient progress and neurology input SUBJECTIVE: Chief Complaint: Slurred speech History of Presenting Illness: Fernando Helton is a 49 y.o. male presenting from home with complaint of dizziness and blurry vision. Patient is a 49-year-old male with multiple medical problems including a history of coronary Artery disease status post CABG presents to the ED with multiple complaints including weakness , slurred speech , altered mental status, blurred vision and dizziness. Patient states symptoms occurred after after waking up this morning around 5:00am. In the ED patient is awake alert is answering questions appropriately his speech is clear no facial droop is noted GCS is 15 initial NIHSS is 2 initial vitals systolic blood pressure 136/80 pulse is 65 pulse ox is 98% on room air he is afebrile 97.7 Fahrenheit. Patient reports going to bed last night at 10 PM woke up at 5 AM this morning said when the patient woke up he was confused his speech was slurred he was weak in the left upper and lower leg, complained of blurred vision of both eyes and dizziness so family decided to drive patient immediately to the ED concering for stroke. Upon Arrival to the ED, the patient's symptoms have improved per patient and . No previous history of CVAs reported and no recent travel, hospitalization or sick contact reported. Stroke Alert has been activated for further evaluation. CT brain was unremarkable Patient then had a CTA neck and brain came back as no acute abnormalities Patient symptoms are improved admitted for observation for further work-up Review of Systems: 10 systems reviewed and negative other than noted in HPI History: Past Medical History: Diagnosis Date Acute respiratory failure ([facility]) 09/2014 requring mechanical ventilation Anxiety Bilateral lower extremity edema R > L CAD (coronary artery disease) CAD s/p [facility] with 1 stent in left main 07/2012, replaced 09/2014 Cardiac arrest with ventricular fibrillation ([facility]) 09/25/2014 CHF (congestive heart failure), NYHA class I, chronic, diastolic ([facility]) Chronic sinusitis Claudication of right lower extremity ([facility]) Cluster headache COPD (chronic obstructive pulmonary disease) ([facility]) 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 Bev Tolentino Metabolic syndrome Mood disorder ([facility]) Nasal fracture Obstructive sleep apnea noncompliant with CPAP Orthostatic dizziness with intermittent syncope Pericarditis 02/25/07; 09/23/17 Pneumomediastinum (HCC) 01/12/2007 secondary to severe coughing spell & ruptured alveoli Rotator cuff tear, right 1997 s/p repair SLAP tear of shoulder 2011 left - s/p surgery to place [address] elevation myocardial infarction (STEMI) of anterolateral wall ([facility]) 05/09/2012 anterolateral STEMI involving left anterior descending coronary artery ([facility]) 09/25/2014 anterior Superficial thrombophlebitis of right upper extremity 12/26/2006 Past Surgical History: Procedure Laterality Date APPENDECTOMY 1998 BONE MARROW BIOPSY W/ ASPIRATION Left 11/27/2016 L posterior iliac crest; Dr. Bev Tolentino CABG OFF PUMP N/A 01/24/2019 Procedure: Coronary Artery Bypass graft x1 with Left Internal Mammary Artery graft, OFF PUMP; Surgeon: Neo Mcneil MD; Location: Main OR; Service: Cardiothoracic CARDIAC CATHETERIZATION 09/24/2014 Segment LV dysf., mild to moderate LV systolic impairment, moderate LV diastolic dysf.; single vessel CAD by Dr. Whitney CARDIAC CATHETERIZATION 05/09/2012 Emergent. Severe LVSD EF 20%; single vessel CAD with acute thrombotic occlusion of left anterior descending by Dr. Rowland CARDIAC CATHETERIZATION Left 09/28/2015 Dr. Rowland Predominant single vessel CAD w/ no angiographic evidence of restenosis within Intervened upon segment LAD, reidentification of high grade small caliber jailed diagonal disease. Normal LV end-diastolic pressure. CARDIAC CATHETERIZATION 01/14/[address] Phillips CARDIAC CATHETERIZATION 11/24/[address] Rowland COLONOSCOPY 05/27/2015 CORONARY ANGIOPLASTY 12/25/2014 PCI with balloon angioplasty by Dr. Whitney of jailed diagonal CORONARY STENT PLACEMENT 05/09/2012 Drug eluted Alpine stent in the left anterior descending by Dr. Rowland CORONARY STENT PLACEMENT 09/24/2014 Subacute stent thrombosis by Dr. Whitney. This may be in the setting of areas of restenosis within the LAD stent CV IR INTERVENTIONAL RADIOLOGY Left 02/03/2019 Procedure: IR THORACENTESIS LEFT; Surgeon: Gilmer Zelaya MD; Location: IR LAB; Service: Interventional Radiology ETHMOIDECTOMY Bilateral 06/25/[address] Gaitan HC LEFT HEART CATH N/A 01/20/2019 Procedure: Left Heart Cath; Surgeon: Carlo Mercedes MD; Location: [facility]; Service: Cardiovascular IABP placement 05/09/[address] Rowland NASAL SEPTUM SURGERY 06/25/[address] Gaitan ROTATOR CUFF REPAIR Right 1997 SHOULDER ARTHROSCOPY W/ SUPERIOR LABRAL ANTERIOR POSTERIOR REPAIR Left 11/2012 @ [facility] SHOULDER ARTHROSCOPY W/ SUPERIOR LABRAL ANTERIOR POSTERIOR REPAIR Left 11/22/2011 shoulder arthroscopic anterior capsulorraphy, SLAP repair, acromioplasty, limited debridement of labrum and rotator cuff by Dr. Sexton SINUSOTOMY Bilateral 06/25/2007 with removal of tissue by Dr. Gaitan UPPER GASTROINTESTINAL ENDOSCOPY 2016 Family History Problem Relation Age of Onset Heart attack Father Heart disease Father s/p cabg x 4 in his 40s Coronary artery disease Father Hypertension Father Hyperlipidemia Father Heart disease Mother Stroke Mother 64 Hyperlipidemia Mother Coronary artery disease Other Cancer Paternal Uncle unknown cancer Hypertension Sister Diabetes Brother Heart disease Brother s/p PCI Melanoma Brother Social History Tobacco Use Smoking Status Former Smoker Packs/day: 1.00 Years: 35.00 Pack years: 35.00 Last attempt to quit: 05/12/2016 Years since quittin.3 Smokeless Tobacco Never Used Tobacco Comment Quit 05/12/18 Social History Substance and Sexual Activity Alcohol Use Yes Alcohol/week: 0.0 standard drinks Comment: socially Family and Social History reviewed and non-pertinent to this visit Allergies: Imdur [isosorbide mononitrate] Home Medications: Outpatient Medications as of 09/22/2019 Medication Sig albuterol 90 mcg/actuation inhaler Inhale 2 puffs every 6 (six) hours as needed for wheezing or shortness of breath . aspirin 81 MG EC tablet Take 81 mg by mouth daily. atorvastatin (LIPITOR) 20 MG tablet Take 1 (one) tablet (20 mg total) by mouth nightly . blood sugar diagnostic (glucose blood) strips Use as directed before breakfast and supper Dx E11.65 . blood-glucose meter kit Use as instructed Dx E11.65 . budesonide-formoterol (Symbicort) 160-4.5 mcg/actuation inhaler Inhale 2 puffs 2 (two) times a day . clindamycin (CLEOCIN) 300 MG capsule Take 300 mg by mouth 3 (three) times a day . clopidogreL (PLAVIX) 75 mg tablet Take 1 (one) tablet (75 mg total) by mouth daily . freestyle 28 gauge lancets USE DIRECTED BID BEFORE BREAKFAST AND SUPPER furosemide (Lasix) 20 MG tablet Take 1 (one) tablet (20 mg total) by mouth daily . lancets Misc Use as directed before breakfast and supper Dx E11.65 . metoprolol tartrate 75 mg Tab Take 75 mg by mouth 2 (two) times a day . omeprazole (PRILOSEC) 40 MG capsule Take 1 (one) capsule (40 mg total) by mouth daily . potassium chloride (K-DUR) 10 MEQ CR tablet Take 1 (one) tablet (10 mEq total) by mouth daily . rOPINIRole (REQUIP) 2 MG tablet Take 2 mg by mouth nightly. traZODone (DESYREL) 50 MG tablet Take 50 mg by mouth nightly as needed . OBJECTIVE: Physical Examination: BP 110/71 Pulse 82 Temp 97.7 F (36.5 C) (Temporal) Resp 16 Ht 5' 6 Wt 122.5 kg (270 lb) SpO2 95% BMI 43.58 kg/m General Appearance: Alert, well appearing, and in no acute distress. HEENT: Head - Normocephalic, atraumatic. Eyes - ROSELINE bilaterally and EOMI. Ears - normal external appearance, hearing intact. Nose - normal, no erythema. Throat - mucous membranes moist, pharynx without lesions. Neck: Supple, trachea midline. Cardiovascular: S1, S2 normal. No murmurs, rubs, clicks or gallops appreciated. No pedal edema. Respiratory: Lungs clear to auscultation, no wheezes, rales or rhonchi heard. Abdomen: Soft, non-tender, normal bowel sounds, non-distended, no masses or organomegaly appreciated. Neurological: Grossly normal motor and sensory exam. No focal deficits. Musculoskeletal: No joint tenderness, deformity or swelling. Skin: Normal coloration and turgor. No rashes. Psych: Alert, oriented x 3. Normal mood and affect. Laboratory and Additional Data Reviewed: Results/Medications Reviewed 09/22/19 10:48 AM: Results from last 7 days Lab Units 09/22/19 0806 SODIUM mmol/L 140 POTASSIUM mmol/L 4.3 CHLORIDE mmol/L 108 BUN mg/dL 24 CREATININE mg/dL 1.16 GLUCOSE mg/dL 129* Results from last 7 days Lab Units 09/22/19 0806 WBC K/mcL 9.93 HGB g/dL 14.0 HCT % 44.9 PLT K/mcL 265 Results from last 7 days Lab Units 09/22/19 0806 TROPONIN I ng/L <15 Invalid input(s): LABALBU CULTURES: Reviewed 10:48 AM IMAGING: Reviewed 10:48 AM documented in this encounter Kirstin Byrnes PA-C - 01/29/2019 8:24 AM Kristin Umana PA-C - 01/28/2019 7:45 AM Jacob Guevara PA-C - 01/26/2019 8:56 AM EST Procedure Notes (unrecognize d section and content) Pacing Wire Removal Ventricular temporary cardiac pacing wires were prepped with betadine swabsticks to be cut under sterile technique without difficulty. Patient tolerated well. VSS. Patient will remain at bedrest for 1 hour with serial blood pressure checks. Procedure: Right IJ removed per protocol. Patient tolerated well. Pressure and dressing applied to site. Vital signs stable. CHEST TUBE REMOVAL Mediastinal and pleural chest tubes were removed at this time after ensuring no air leaks were present. Chest tubes were removed quickly with patient holding a deep breath. A Vaseline occlusive dressing was placed over the chest tube sites. Patient tolerated this very well. There were no immediate complications. We will check a stat portable chest x-ray. SWAN LINE REMOVAL Wilsey-Isaiah catheter was removed at this time with patient lying flat. A single lumen infusion catheter was then sterilely placed right IJ cordis. Patient tolerated this very well. There were no immediate complications. documented in this encounter Care Teams (unrecognized sec tion and content) Page Technician Relationship Specialty Start Date End Date Moises Patel MD [address] [place] [address] PCP - General Family Medicine 09/20/17 Maykel Weathers II, MD [address] [place] [address] Consulting Physician Internal Medicine 05/17/15 Maximiliano Chiang MD [address] [place] [address] Consulting Physician General Surgery 07/14/19 Rubi White, HEALTH DIAGNOSTICS TEACHER [address] [place] [address] Nurse Practitioner Nurse Practitioner 07/14/19 Devendra Freitas III, DO [address] [place] [address] Consulting Physician Vascular Surgery 07/14/19 Page Technician Relationship Specialty Start Date End Date Moises Patel MD PCP - General Family Medicine 03/17/13 Page Technician Relationship Specialty Start Date End Date Moises Paetl MD [address] [place] [address] PCP - General Family Medicine 09/20/17 Maykel Weathers II, MD [address] [place] [address] Consulting Physician Internal Medicine 05/17/15 Maximiliano Chiang MD [address] [place] [address] Consulting Physician General Surgery 07/14/19 Rubi White, HEALTH DIAGNOSTICS TEACHER [address] [place] [address] Nurse Practitioner Nurse Practitioner 07/14/19 Devendra Freitas III, DO [address] [facility] [place] [place] [address] Consulting Physician Vascular Surgery 07/14/19 Page Technician Relationship Specialty Start Date End Date Moises Patel MD [address] [place] [address] PCP - General Family Medicine 09/20/17 Maykel Weathers II, MD [address] [place] [address] Consulting Physician Internal Medicine 05/17/15 Maximiliano Chiang MD [address] [place] [address] Consulting Physician General Surgery 07/14/19 Rubi White, HEALTH DIAGNOSTICS TEACHER [address] [place] [address] Nurse Practitioner Nurse Practitioner 07/14/19 Devendra Freitas III, DO [address] [place] [address] Consulting Physician Vascular Surgery 07/14/19 Page Technician Relationship Specialty Start Date End Date Moises Patel MD PCP - General Family Medicine 03/17/13 Page Technician Relationship Specialty Start Date End Date Moises Patel MD [address] [place] [address] PCP - General Family Medicine 09/20/17 Maykel Weathers II, MD [address] [place] [address] Consulting Physician Internal Medicine 05/17/15 Maximiliano Chiang MD [address] [place] [address] Consulting Physician General Surgery 07/14/19 Rubi White, HEALTH DIAGNOSTICS TEACHER [address] [place] [address] Nurse Practitioner Nurse Practitioner 07/14/19 Devendra Freitas III, DO [address] [place] [address] Consulting Physician Vascular Surgery 07/14/19 Page Technician Relationship Specialty Start Date End Date Moises Patel MD [address] [place] [address] PCP - General Family Medicine 09/20/17 Maykel Weathers II, MD [address] [place] [address] Consulting Physician Internal Medicine 05/17/15 Maximiliano Chiang MD [address] [place] [address] Consulting Physician General Surgery 07/14/19 Rubi White CNP [address] [place] [address] Nurse Practitioner Nurse Practitioner 07/14/19 Devendra Freitas III, DO [address] [place] [address] Consulting Physician Vascular Surgery 07/14/19 Page Technician Relationship Specialty Start Date End Date Moises Patel MD [address] [place] [address] PCP - General Family Medicine 09/20/17 Maykel Weathers II, MD [address] [place] [address] Consulting Physician Internal Medicine 05/17/15 Maximiliano Chiang MD [address] [place] [address] Consulting Physician General Surgery 07/14/19 Rubi White HEALTH DIAGNOSTICS TEACHER [address] [facility] [place] [address] Nurse Practitioner Nurse Practitioner 07/14/19 Devendra Freitas III, DO [address] [facility] [place] [address] Consulting Physician Vascular Surgery 07/14/19 Page Technician Relationship Specialty Start Date End Date Moises Patel MD [address] [place] [address] PCP - General Family Medicine 09/20/17 Maykel Weathers II, MD [address] [place] [address] Consulting Physician Internal Medicine 05/17/15 Carlo Mercedes MD [address] [place] [address] Cardiology 07/14/19 07/12/20 Maximiliano Chiang MD [address] [facility] [address] [address] Consulting Physician General Surgery 07/14/19 Rubi White CNP [address] [place] [address] Nurse Practitioner Nurse Practitioner 07/14/19 Devendra Freitas III, DO [address] [place] [address] Consulting Physician Vascular Surgery 07/14/19 Page Technician Relationship Specialty Start Date End Date Moises Patel MD [address] [place] [address] PCP - General Family Medicine 09/20/17 Maykel Weathers II, MD [address] [facility] [address] Consulting Physician Internal Medicine 05/17/15 Carlo Mercedes MD [address] [place] [address] Cardiology 07/14/19 07/12/20 Maximiliano Chiang MD [address] [place] [address] Consulting Physician General Surgery 07/14/19 Rubi White, HEALTH DIAGNOSTICS TEACHER [address] [facility] [place] [address] Nurse Practitioner Nurse Practitioner 07/14/19 Devendra Freitas III, DO [address] [facility] [place] [address] Consulting Physician Vascular Surgery 07/14/19 Page Technician Relationship Specialty Start Date End Date Moises Patel MD [address] [place] [address] PCP - General Family Medicine 09/20/17 Maykel Weathers II, MD [address] [place] [address] Consulting Physician Internal Medicine 05/17/15 Carlo Mercedes MD [address] [place] [address] Cardiology 07/14/19 07/12/20 Maximiliano Chiang MD [address] [place] [address] Consulting Physician General Surgery 07/14/19 Rubi White, HEALTH DIAGNOSTICS TEACHER [address] [facility] [place] [place] [address] Nurse Practitioner Nurse Practitioner 07/14/19 Devendra Freitas III, DO [address] [place] [address] Consulting Physician Vascular Surgery 07/14/19 Page Technician Relationship Specialty Start Date End Date Moises Patel MD [address] [place] [address] PCP - General Family Medicine 12/28/14 09/19/17 Moises Patel MD [address] [place] [address] PCP - General Family Medicine 09/20/17 Maykel Weathers II, MD [address] [facility] [place] [address] Consulting Physician Internal Medicine 05/17/15 Carlo Mercedes MD [address] [facility] [place] [address] Cardiology 07/14/19 07/12/20 Maximiliano Chiang MD [address] [address] Consulting Physician General Surgery 07/14/19 Rubi White CNP [address] [place] [address] Nurse Practitioner Nurse Practitioner 07/14/19 Devendra Freitas III, DO [address] [place] [address] Consulting Physician Vascular Surgery 07/14/19 Page Technician Relationship Specialty Start Date End Date Moises Patel MD [address] [place] [address] PCP - General Family Medicine 12/28/14 09/19/17 Moises Patel MD [address] [place] [address] PCP - General Family Medicine 09/20/17 Maykel Weathers II, MD [address] [facility] [place] [address] Consulting Physician Internal Medicine 05/17/15 Carlo Mercedes MD [address] [facility] [place] [address] Cardiology 07/14/19 07/12/20 Maximiliano Chiang MD [address] [place] [address] Consulting Physician General Surgery 07/14/19 Rubi White CNP [address] [place] [address] Nurse Practitioner Nurse Practitioner 07/14/19 Devendra Freitas III, DO [address] [facility] [place] [address] Consulting Physician Vascular Surgery 07/14/19 Page Technician Relationship Specialty Start Date End Date Moises Patel MD [address] [place] [address] PCP - General Family Medicine 12/28/14 09/19/17 oMises Patel MD [address] [place] [address] PCP - General Family Medicine 09/20/17 Maykel Weathers II, MD [address] [place] [address] Consulting Physician Internal Medicine 05/17/15 Carlo Mercedes MD [address] [place] [address] Cardiology 07/14/19 07/12/20 Maximiliano Chiang MD [address] [place] [address] Consulting Physician General Surgery 07/14/19 Rubi White, JIM [address] [place] [address] Nurse Practitioner Nurse Practitioner 07/14/19 Devendra Freitas III, DO [address] [facility] [place] [address] Consulting Physician Vascular Surgery 07/14/19 Page Technician Relationship Specialty Start Date End Date Moises Patel MD [address] [place] [address] PCP - General Family Medicine 12/28/14 09/19/17 Moises Patel MD [address] [place] [address] PCP - General Family Medicine 09/20/17 Maykel Weathers II, MD [address] [place] [address] Consulting Physician Internal Medicine 05/17/15 Carlo Mercedes MD [address] [place] [address] Cardiology 07/14/19 07/12/20 Maximiliano Chiang MD [address] [place] [address] Consulting Physician General Surgery 07/14/19 Rubi White CNP [address] [place] [address] Nurse Practitioner Nurse Practitioner 07/14/19 Devendra Freitas III, DO [address] [place] [address] Consulting Physician Vascular Surgery 07/14/19 Page Technician Relationship Specialty Start Date End Date Moises Patel MD [address] [place] [address] PCP - General Family Medicine 09/20/17 Maykel Weathers II, MD [address] [place] [address] Consulting Physician Internal Medicine 05/17/15 Maximiliano Chiang MD [address] [place] [address] Consulting Physician General Surgery 07/14/19 Rubi White CNP [address] [facility] [place] [address] Nurse Practitioner Nurse Practitioner 07/14/19 Devendra Freitas III, DO [address] [facility] [place] [address] Consulting Physician Vascular Surgery 07/14/19 Team Status: Active Member Role Status Dates NON STAFF Primary Care Provider Active Team Status: Inactive Member Role Status Dates Jasen Campbell DO Emergency Provider Active NON STAFF Primary Care Provider Active Goals (unrecognized section and content) Goals may be documented in a n alternate section FOR RECORDS PERTAINING TO PATIENTS WHO ARE OR HAVE BEEN ENROLLED IN A CHEMICAL DEPENDENCY/SUBSTANCEABUSE PROGRAM, SOME INFORMATION MAY BE OMITTED. This clinical summary was aggregated from multiple sources. Caution should be exercised in using it in the provision of clinical care. This summary normalizes information from multiple sources, and as a consequence, information in this document may materially change the coding, format and clinical context of patient data. In addition, data may be omitted in some cases. CLINICAL DECISIONS SHOULD BE BASED ON THE PRIMARY CLINICAL RECORDS. [facility] [employer] [facility]. provides no warranty or guarantee of the accuracy or completeness of information in this document.
[2023-02-28 17:14] LABS: Basophils Absolute Auto 0.1 10^3/uL (0.0-0.1); Basophils Percent Auto 1.2 % (0.2-2.0); Eosinophils Absolute Auto 0.8 10^3/uL (0.0-0.7); Eosinophils Percent Auto 6.9 % (0.9-7.0); Hematocrit 48.7 % (42.0-54.0); Hemoglobin 16.3 g/dL (14.0-18.0); Immature Granulocytes Abs Auto 0.08 10^3/uL (0.00-0.03); Immature Granulocytes Pct Auto 0.7 % (0.0-0.5); Lymphocytes Absolute Auto 3.6 10^3/uL (1.2-3.8); Lymphocytes Percent Auto 32.4 % (20.5-60.0); Mean Corpuscular HGB Conc 33.5 g/dL (29.9-35.2); Mean Corpuscular Hemoglobin 27.9 pg (25.9-34.0); Mean Corpuscular Volume 83.4 fL (80.0-94.0); Mean Platelet Volume 10.4 fL (9.5-13.5); Monocytes Percent Auto 9.1 % (1.7-12.0); Neutrophils Absolute Auto 5.6 10^3/uL (1.4-6.5); Neutrophils Percent Auto 49.7 % (43.0-75.0); Platelet Count 271 10^3/uL (150-450); Red Blood Count 5.84 10^6/uL (4.70-6.10); Red Cell Distribution Width 14.3 % (11.0-15.0); White Blood Count 11.2 10^3/uL (4.0-11.0)
[2023-02-28] MEDS: METHYLPREDNISOLONE SOD SUCC PF 125 MG/2 ML VIAL IVP (17:14)
[2023-02-28] MEDS: 0.9 % SODIUM CHLORIDE 1,000 ML 999 ML IV (17:14)
[2023-02-28] MEDS: ALBUTEROL SULFATE 2.5 MG/3 ML VIAL NEB IH (17:20)
[2023-02-28] MEDS: IPRATROPIUM/ALBUTEROL SULFATE 3 ML AMPUL.NEB IH (17:20)
[2023-02-28 17:24] LABS: Influenza Virus A Antigen Negative; Influenza Virus B Antigen Negative; Internal Control Within Normal Limits; SARS-CoV-2 Ag NEGATIVE (NEGATIVE)
[2023-02-28 17:41] LABS: Lactate/Lactic Acid 1.7 mmol/L (0.4-2.0); PROCALCITONIN <0.05 ng/mL (0.00-0.50)
[2023-02-28 17:49] LABS: INR 0.97; Prothrombin Time 10.3 sec (9.0-11.6)
[2023-02-28 17:50] LABS: D Dimer <0.19 mg/L FEU (<=0.59)
[2023-02-28 17:51] LABS: Alanine Aminotransferase 18 U/L (16-63); Albumin Globulin Ratio 0.1; Albumin Level <0.6 g/dL (3.4-5.0); Alkaline Phosphatase 78 U/L (46-116); Aspartate Amino Transferase 24 U/L (15-37); BUN Creatinine Ratio 13.3; Bilirubin Total 0.8 mg/dL (0.2-1.0); Calcium 9.3 mg/dL (8.5-10.1); Carbon Dioxide 25.1 mmol/L (21.0-32.0); Estimated GFR (African America >60 (>=60); Estimated GFR (Non-African Ame >60 (>=60); Globulin 6.6 g/dL; Glucose 120 mg/dL (74-106); Magnesium 1.9 mg/dL (1.8-2.4); Total Protein 7.2 g/dL (6.4-8.2)
--- NOTE | 2023-02-28 17:52 | XR_ITS ---
The [address] [address] Patient Name: BRYNN WRIGHT MRN: [id number] date: 1970 Sex: M Assigned Patient Location: ER Current Patient Location: ER Accession/Order Number: [id number] Exam Date: 02/28/2023 18:00 Report Date: 02/28/2023 18:15 At the request of: RAZIA WATTS Procedure: XR chest 1V EXAM: XR chest 1V HISTORY: shortness of breath COMPARISON: 01/13/2023 TECHNIQUE: Frontal view chest FINDINGS: Median sternotomy. No acute infiltrate seen in the chest. Bronchial thickening. Query COPD. No pneumothorax XR/XR chest 1V IMPRESSION: . No acute cardiopulmonary process detected. Electronically authenticated by: PATRICIA MCNEAL Date: 02/28/2023 18:15
[2023-02-28 18:03] LABS: Anion Gap 15.8; Chloride 102 mmol/L (98-107); Potassium 3.9 mmol/L (3.5-5.1); Sodium 139 mmol/L (136-145)
[2023-02-28] MEDS: AZITHROMYCIN 500 MG in 0.9 % SODIUM CHLORIDE 250 ML 250 MG IV (18:46)
--- NOTE | 2023-02-28 18:59 | PC.NURSE ---
report given to LICHA Kraus
--- OUTSIDE RECORDS SUMMARY | 2023-02-28 20:09 | XMS_ITS | CCD ---
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 [facility] Comment on above: Result Comment: NORMAL <100 mg/dL PREDIABETES 101-126 mg/dL DIABETES 126 mg/dL or higher Performed By: #### A CBC, PT, LIVR, CHEM7F #### Testing performed at [address] [address] Potassium [Moles/Vol] 4.4 mmol/L Normal 3.5-5.1 [facility] Comment on above: Performed By: #### A CBC, PT, LIVR, CHEM7F #### Testing performed at [address] [address] Sodium [Moles/Vol] 137 mmol/L Normal 136-145 [facility] Comment on above: Performed By: #### A CBC, PT, LIVR, CHEM7F #### Testing performed at [address] [address] LIVER PANELon 04-25-2020 Albumin [Mass/Vol] 4.0 g/dL Normal 3.5-5.0 [facility] Comment on above: Performed By: #### A CBC, PT, LIVR, CHEM7F #### Testing performed at [address] [address] ALP [Catalytic activity/Vol] 77 U/L Normal 38-126 [facility] Comment on above: Performed By: #### A CBC, PT, LIVR, CHEM7F #### Testing performed at [address] [place] [address] ALT [Catalytic activity/Vol] 40 U/L Normal 17-63 [facility] Comment on above: Performed By: #### A CBC, PT, LIVR, CHEM7F #### Testing performed at [address] [place] [address] AST [Catalytic activity/Vol] 23 U/L Normal 15-41 [facility] Comment on above: Performed By: #### A CBC, PT, LIVR, CHEM7F #### Testing performed at [address] [address] Bilirubin [Mass/Vol] 0.6 mg/dL Normal 0.2-1.2 [facility] Comment on above: Performed By: #### A CBC, PT, LIVR, CHEM7F #### Testing performed at [place] [id number] Bilirubin.direct [Mass/Vol] 0.1 mg/dL Normal 0.0-0.2 [facility] Comment on above: Performed By: #### A CBC, PT, LIVR, CHEM7F #### [place] [address] Protein [Mass/Vol] 7.1 g/dL Normal 6.3-8.2 [facility] Comment on above: Performed By: #### A CBC, PT, LIVR, CHEM7F #### [place] [address] NOVEL CORONAVIRUSon 20 21 NARRATIVE This test was perfor med using isothermal MEGHANN and has been approved as Emergency Use Authorization (EUA) for the qualitative detection [id number] nucleic acid. Normal [facility] Comment on above: Performed By: #### C OVID #### [place] [address] SARS-COV-2 NOT DETECTED Normal NOT DETECTED [facility] Comment on above: Result Comment: Nega tive [...] #### C OVID #### [place] [address] PROTIMEon 04-25-2020 INR Coag (PPP) [Relative time] 0.97 {INR} Normal 0.88-1.12 [facility] Comment on above: Result Comment: 2.0-3.0 THERAPEUTIC RANGE 2.5-3.5 MECHANICAL VALVE RANGE Performed By: #### A CBC, PT, LIVR, CHEM7F #### Testing performed at [address] [address] PT Coag (PPP) [Time] 12.7 s Normal 11.8-14.4 [facility] Comment on above: Performed By: #### A CBC, PT, LIVR, CHEM7F #### Testing performed at [address] [address] RAPID FLU Aon 04-25-2020 INFLUENZA A Negative Normal NEGATIVE [facility] Comment on above: Performed By: #### R FLUAB #### Testing performed at [address] [address] INFLUENZA B Negative Normal NEGATIVE [facility] Comment on above: Result Comment: TEST ING PERFORMED BY MEGHANN Performed By: #### R FLUAB #### Testing performed at [address] [address] TROPONIN I, HIGH SENSITIVITY on 04-25-2020 TROPONIN I, HIGH SENSITIVITY 7 pg/mL Normal 0-20 [facility] Comment on above: Result Comment: Indeterminant: >12 to 100 pg/mL female >20 to 100 pg/mL male Indicative of myocardial injury. Serial sampling is recommended, a change of greater than or equal to 20 pg/mL is indicative of acute coronary syndrome. Performed By: #### R FLUAB #### Testing performed at [address] [address] XR CHEST AP PORTABLEon 04-25 XR CHEST AP PORTABLE EXAM: XR CHEST AP PORTABLE HISTORY: sob COMPARISON: Portable chest from 01/08/2018. TECHNIQUE: Portable chest was done at 5:41 PM. FINDINGS: Sternal wires indicate prior surgery. Trachea, mediastinum, heart size, diaphragm and bony elements are intact. No infiltrate or nodule or effusion or pneumothorax is noted. IMPRESSION: Nonacute portable chest. Normal [facility] XR CHEST PA AND LATERALon XR CHEST PA AND LATERAL EXAM: XR CHEST P A AND LATERAL 12/31/2019 2:56 PM EST HISTORY: sob COMPARISON: 01/08/2018 TECHNIQUE: PA and lateral views FINDINGS: Lungs are clear. The cardiomediastinal configuration is within normal limits. No acute bony abnormalities. Median sternotomy wires are visualized. IMPRESSION: No acute cardiopulmonary abnormalities. Normal [facility] COVID-19, MOLECULARon 2019 SARS-COV-2 RNA (KELL) Not Detected Normal Not Detected [facility] Comment on above: Result Comment: This [...] at the following links: For Healthcare Providers: https://www.fda.gov/media/367406/download For Patients: https://www.fda.gov/media/005501/download Performed By: #### L [id number] #### [facility] [address] [place] [address] Roby Santos M.D. [id number] CBC WITH AUTO DIFFERENTIALon 10-16-2019 Basophils (Bld) [#/Vol] 0.10 10*3/uL [facility] Basophils/100 WBC (Bld) 0.6 % [facility] Eosinophils (Bld) [#/Vol] 0.21 10*3/uL [facility] Eosinophils/100 WBC (Bld) 1.3 % [facility] Erythrocyte distribution width (RBC) [Entitic vol] 15.3 % High 11.6 - 14.8 % [facility] Hematocrit (Bld) [Volume fraction] 47.6 % 41 - 53 % [facility] Hemoglobin (Bld) [Mass/Vol] 15.2 g/dL 13.5 - 17.5 g/dL [facility] Immature granulocytes (Bld) [#/Vol] 0.11 10*3/uL [facility] Immature granulocytes/100 WBC (Bld) 0.70 % [facility] Comment on above: The IG parameter is the percentage of metamyelocytes, myelocytes and promyelocytes. An immature granulocyte count (IG) of 1% or more suggests the possibility of infection, an IG count of 3% is very likely related to an infection. Interpretation and review of laboratory results Abnormal [facility] Lymphocytes (Bld) [#/Vol] 5.08 10*3/uL High [facility] Lymphocytes/100 WBC (Bld) 32.5 % [facility] MCH (RBC) [Entitic mass] 27.4 pg 26 - 34 pg [facility] MCHC (RBC) [Mass/Vol] 31.9 g/dL 31 - 3 7 g/dL [facility] MCV (RBC) [Entitic vol] 85.9 fL 80 - 100 fL [facility] Monocytes (Bld) [#/Vol] 1.39 10*3/uL High [facility] Monocytes/100 WBC (Bld) 8.9 % [facility] Neutrophils (Bld) [#/Vol] 8.72 10*3/uL High [facility] Neutrophils/100 WBC (Bld) 56.0 % [facility] Comment on above: Peripheral smear rev iewed manually Nucleated RBC (Bld) [#/Vol] 0.00 10*3/uL [facility] Nucleated RBC/100 WBC (Bld) [Ratio] 0.0 % [facility] Platelet mean volume (Bld) [Entitic vol] 10.3 fL 9.4 - 12.4 fL [facility] Platelets (Bld) [#/Vol] 306 10*3/uL [facility] RBC (Bld) [#/Vol] 5.54 10*6/uL [facility] ealth WBC (Bld) [#/Vol] 15.61 10*3/uL [facility] Comprehensive Metabolic Pane sangeetha 10-16-2019 Albumin [Mass/Vol] 3.2 g/dL 3.2 - 5.2 g/dL [facility] ALP [Catalytic activity/Vol] 87 U/L 40 - 150 U/L [facility] ALT [Catalytic activity/Vol] 46 U/L 14 - 65 U/L [facility] Anion gap [Moles/Vol] 10 mmol/L 10 - 2 0 mmol/L [facility] AST [Catalytic activity/Vol] 16 U/L 0 - 45 U/L [facility] Bilirubin [Mass/Vol] 0.4 mg/dL 0 - 1.3 mg/dL [facility] Calcium [Mass/Vol] 8.7 mg/dL 8.4 - 10. 2 mg/dL [facility] Chloride [Moles/Vol] 108 mmol/L 98 - 10 8 mmol/L [facility] Creatinine [Mass/Vol] 1.09 mg/dL 0.50 - 1.30 [facility] GFR/1.73 sq M predicted among non-blacks MDRD (S/P/Bld) [Vol rate/Area] The eGFR should be used for monitoring renal function only and not for medication dosing. [facility] GFR/1.73 sq M.predicted CKD-EPI (S/P/Bld) [Vol rate/Area] 80 >=60 mL/min/1.7 3 m2 [facility] Glucose [Mass/Vol] 117 mg/dL High 65 - 99 mg/dL [facility] HCO3 [Moles/Vol] 26 mmol/L 21 - 32 mmol/L [facility] Interpretation and review of laboratory results Abnormal [facility] Potassium [Moles/Vol] 3.7 mmol/L 3.5 - 5.1 mmol/L [facility] Protein [Mass/Vol] 6.5 g/dL 6 - 8 g/dL [facility] Sodium [Moles/Vol] 140 mmol/L 135 - 145 mmol/L [facility] Urea nitrogen [Mass/Vol] 28 mg/dL High 8 - 25 mg/dL [facility] Urea nitrogen/Creatinine [Mass ratio] 25.7 mg/mg High [facility] ECG 12-LEADon 10-16-2019 Atrial Rate 76 BPM [facility] P [place] 74 degrees [facility] P-R Interval 174 ms [facility] Q-T Interval 424 ms [facility] QRS Duration 90 ms [facility] QTC Calculation (Bezet) 477 ms O [facility] R [place] 11 degrees [facility] T [place] 62 degrees [facility] Ventricular Rate 76 BPM [facility] Normal sinus rhythm Anteroseptal infarct , age undetermined Abnormal ECG Confirmed by DEMETRIO WARREN, EMMA ([id number]) on 10/16/2019 8:22:19 AM [facility] ECHOCARDIOGRAM 2D COMPLETEon 10-16-2019 Aortic valve area 3.75339 cm [facility] AV mean gradient 2.82202 mmHg [facility] th AV peak gradient 3.6017 mmHg [facility] EF 38.6259 % [facility] Interface, Rad In [facility] Xper Echopacs - 10/16/2019 11:49 AM EDT Patient Info Name: FERNANDO HELTON Age: 49 years : 1970 Gender: Male Ht: 168 cm Wt: 118 kg BSA: 2.40 m2 HR: 72 bpm BP: 136 / 94 mmHg Heart Rhythm: Sinus Rhythm Technical Quality: Fair Exam Date: 10/16/2019 9:53 AM Patient Status: Outpatient Scientist Propagator: Wally Longoria RCDS Exam Type: ECHOCARDIOGRAM COMPLETE W CONTRAST Study Info Indications - - Syncope Referring Physician: ERLINDA Clarke; [id number] BMI: 41.96 kg/m2 Summary 1. Left ventricular [...] mmHg MV VTI 27.22 cm MV Decel [place] 300.69 cm/s2 MV PHT 71 ms MV [...] ml/m2 16.00-34.00 RA Dimensions RA Systolic Major [place] Length (4C) 5.70 cm <=5.30 RA Area (4C) 15.87 cm2 <=18.00 RA Area (4C) Index 6.60 cm2/m2 RA ESV (4C MOD) 38.16 ml 18.00-32.00 RA ESV Index (4C MOD) 15.87 ml/m2 <=32.00 Report Signatures Finalized by Emma Bueno MD on 10/16/2019 11:48 AM [facility] Patient Info Name: Andrew HELTON Age: 49 years : 1970 Gender: Male Ht: 168 cm Wt: 118 kg BSA: 2.40 m2 HR: 72 bpm BP: 136 / 94 mmHg Heart Rhythm: Sinus Rhythm Technical Quality: Fair Exam Date: 10/16/2019 9:53 AM Patient Status: Outpatient Scientist Propagator: Wally Longoria RCDS Exam Type: ECHOCARDIOGRAM COMPLETE W CONTRAST Study Info Indications - - Syncope Referring Physician: ERLINDA Clarke; [id number] BMI: 41.96 kg/m2 Summary 1. Left ventricular [...] mmHg MV VTI 27.22 cm MV Decel [place] 300.69 cm/s2 MV PHT 71 ms MV [...] ml/m2 16.00-34.00 RA Dimensions RA Systolic Major [place] Length (4C) 5.70 cm <=5.30 RA Area (4C) 15.87 cm2 <=18.00 RA Area (4C) Index 6.60 cm2/m2 RA ESV (4C MOD) 38.16 ml 18.00-32.00 RA ESV Index (4C MOD) 15.87 ml/m2 <=32.00 Report Signatures Finalized by Emma Bueno MD on 10/16/2019 11:48 AM [facility] EKGon 10-16-2019 Ordered by an unspec ified provider. [facility] MORPHOLOGYon 10-16-2019 RBC morphology finding Nom (Bld) Normal [facility] Comment on above: RBC Indices confirme d with manual peripheral smear review. Magnesiumon 10-16-2019 Interpretation and review of laboratory results Normal [facility] Magnesium [Mass/Vol] 2.1 mg/dL 1.6 - 2 .4 mg/dL [facility] POC Glucoseon 10-16-2019 Glucose [Mass/Vol] 118 mg/dL High 65 - 99 mg/dL [facility] Interpretation and review of laboratory results Abnormal [facility] TROPONINon 10-16-2019 Troponin I.cardiac [Mass/Vol] ng/mL <=45 ng/L [facility] Troponin I.cardiac [Mass/Vol] Normal [facility] URINALYSISon 10-16-2019 Bacteria Auto Ql (U) None Seen None Se en /hpf [facility] Bilirubin Ql (U) Negative Negative [facility] th Clarity Refractometry automated (U) Clear Clear [facility] Color (U) Yellow Colorless, Yellow [facility] Epithelial cells.squamous Auto (Urine sed) [#/Area] <1 [facility] Glucose Auto test strip (U) [Mass/Vol] 50 Abnormal Negative mg/dL [facility] Hemoglobin Auto test strip Ql (U) Negative Negative [facility] Interpretation and review of laboratory results Abnormal [facility] Ketones (U) [Mass/Vol] Negative Negat bryan mg/dL [facility] Leukocyte esterase Auto test strip Ql (U) Negative Negative [facility] Nitrite Auto test strip Ql (U) Negative Negative [facility] pH (U) 5.5 [pH] [facility] Protein (U) [Mass/Vol] Negative Negat bryan mg/dL [facility] RBC Auto (Urine sed) [#/Area] [facility] Specific gravity (U) [Rel density] 1.033 High [facility] Urobilinogen (U) [Mass/Vol] <2.0 <2.0 mg/dL [facility] WBC Auto (Urine sed) [#/Area] <1 [facility] Microscopic examinat ion is performed on all urinalysis samples and only positive findings are reported. The test for blood on the chemical analytic portion of urinalysis may also be positive due to hemoglobinuria and myoglobinuria and if red blood cells are present they are quantified by microscopic examination. [facility] Alcohol, Medicalon 0 Ethanol [Mass/Vol] mg/dL <10.00 mg/dL [facility] Comment on above: Alcohol cutoff: <10. 00 mg/dL = None Detected Interpretation and review of laboratory results Normal [facility] BMPon 10-15-2019 Anion gap [Moles/Vol] 10 mmol/L 10 - 2 0 mmol/L [facility] Calcium [Mass/Vol] 9.0 mg/dL 8.4 - 10. 2 mg/dL [facility] Chloride [Moles/Vol] 108 mmol/L 98 - 10 8 mmol/L [facility] Creatinine [Mass/Vol] 1.41 mg/dL High 0.50 - 1.30 [facility] GFR/1.73 sq M predicted among non-blacks MDRD (S/P/Bld) [Vol rate/Area] The eGFR should be used for monitoring renal function only and not for medication dosing. [facility] GFR/1.73 sq M.predicted CKD-EPI (S/P/Bld) [Vol rate/Area] 58 Low >=60 mL/min/1.7 3 m2 [facility] Glucose [Mass/Vol] 203 mg/dL High 65 - 99 mg/dL [facility] HCO3 [Moles/Vol] 23 mmol/L 21 - 32 mmol/L [facility] Interpretation and review of laboratory results Abnormal [facility] Potassium [Moles/Vol] 4.2 mmol/L 3.5 - 5.1 mmol/L [facility] Sodium [Moles/Vol] 137 mmol/L 135 - 145 mmol/L [facility] Urea nitrogen [Mass/Vol] 27 mg/dL High 8 - 25 mg/dL [facility] Urea nitrogen/Creatinine [Mass ratio] 19.1 mg/mg [facility] CBC WITH AUTO DIFFERENTIALon 10-15-2019 Basophils (Bld) [#/Vol] 0.05 10*3/uL [facility] Basophils/100 WBC (Bld) 0.3 % [facility] Eosinophils (Bld) [#/Vol] 0.01 10*3/uL [facility] Eosinophils/100 WBC (Bld) 0.1 % [facility] Erythrocyte distribution width (RBC) [Entitic vol] 15.3 % High 11.6 - 14.8 % [facility] Hematocrit (Bld) [Volume fraction] 45.2 % 41 - 53 % [facility] Hemoglobin (Bld) [Mass/Vol] 14.6 g/dL 13.5 - 17.5 g/dL [facility] Immature granulocytes (Bld) [#/Vol] 0.15 10*3/uL [facility] Immature granulocytes/100 WBC (Bld) 0.90 % [facility] Comment on above: The IG parameter is the percentage of metamyelocytes, myelocytes and promyelocytes. An immature granulocyte count (IG) of 1% or more suggests the possibility of infection, an IG count of 3% is very likely related to an infection. Lymphocytes (Bld) [#/Vol] 3.35 10*3/uL [facility] Lymphocytes/100 WBC (Bld) 19.9 % [facility] MCH (RBC) [Entitic mass] 27.2 pg 26 - 34 pg [facility] MCHC (RBC) [Mass/Vol] 32.3 g/dL 31 - 3 7 g/dL [facility] MCV (RBC) [Entitic vol] 84.2 fL 80 - 100 fL [facility] Monocytes (Bld) [#/Vol] 1.39 10*3/uL High [facility] Monocytes/100 WBC (Bld) 8.2 % [facility] Neutrophils (Bld) [#/Vol] 11.91 10*3/uL High [facility] Neutrophils/100 WBC (Bld) 70.6 % [facility] Nucleated RBC (Bld) [#/Vol] 0.00 10*3/uL [facility] Nucleated RBC/100 WBC (Bld) [Ratio] 0.0 % [facility] Platelet mean volume (Bld) [Entitic vol] 10.5 fL 9.4 - 12.4 fL [facility] Platelets (Bld) [#/Vol] 329 10*3/uL [facility] RBC (Bld) [#/Vol] 5.37 10*6/uL [facility] ealth WBC (Bld) [#/Vol] 16.86 10*3/uL [facility] COVID-19, Molecularon 2019 Interpretation and review of laboratory results Normal [facility] SARS-CoV-2 Not Detected Not Detected [facility] Comment on above: This test was [...] at the following links: For Healthcare Providers: https://www.Sandglaz.gov/media/988624/download For Patients: https://www.Sandglaz.gov/[facility]/702214/download CT HEAD OR BRAIN WITHOUT CON TRASTon [...] of acute intracranial abnormality. Workstation ID: [id number] [facility] EXAMINATION: CT HEAD OR BRAIN WITHOUT [...] TISSUES: Unremarkable. BONES: No acute osseous abnormality. [facility] No CT evidence of ac soni intracranial abnormality. Workstation ID: [id number] [facility] ECG 12-LEADon 10-15-2019 Atrial Rate 85 BPM [facility] P [place] 61 degrees [facility] P-R Interval 170 ms [facility] Q-T Interval 388 ms [facility] QRS Duration 90 ms [facility] QTC Calculation (Bezet) 461 ms [facility] R [place] -4 degrees [facility] T [place] 80 degrees [facility] Ventricular Rate 85 BPM [facility] th Normal sinus rhythm Low voltage QRS Inferior infarct , age undetermined Cannot rule out Anteroseptal infarct , age undetermined Abnormal ECG ECG Cart Interpretation see physician note for interpretation. Confirmed by Brandy Kc ([id number]) on 10/15/2019 10:58:08 PM [facility] Hepatic Function Panel (LFT) on 10-15-2019 Albumin [Mass/Vol] 3.5 g/dL 3.2 - 5.2 g/dL [facility] ALP [Catalytic activity/Vol] 106 U/L 40 - 150 U/L [facility] ALT [Catalytic activity/Vol] 52 U/L 14 - 65 U/L [facility] AST [Catalytic activity/Vol] 21 U/L 0 - 45 U/L [facility] Bilirubin [Mass/Vol] 0.4 mg/dL 0 - 1.3 mg/dL [facility] Bilirubin.conjugated [Mass/Vol] 0.1 mg/dL 0 - 0.4 mg/dL [facility] Protein [Mass/Vol] 7.1 g/dL 6 - 8 g/dL [facility] NT Pro BNPon 10-15-2019 Natriuretic peptide.B prohormone N-Terminal [Mass/Vol] 137 pg/mL 0 - 300 pg/mL [facility] Pride Study Cut-offs Rule In: < /= 50 Years >450 pg/mL 51 Years - 75 Years >900 pg/mL 76 Years - 99 Years >1800 pg/mL Rule Out: All patients <300 pg/mL [facility] Otheron 10-15-2019 Interpretation and review of laboratory results Normal [facility] Interpretation and review of laboratory results Abnormal [facility] POC Glucoseon 10-15-2019 Glucose [Mass/Vol] 189 mg/dL Abnormal 65 - 99 mg/dL [facility] Interpretation and review of laboratory results Abnormal [facility] Glucose [Mass/Vol] 189 mg/dL High 65 - 99 mg/dL [facility] PT/INRon 10-15-2019 INR Coag (PPP) [Relative time] 1.0 {INR} [facility] Interpretation and review of laboratory results Normal [facility] PT Coag (PPP) [Time] 12.7 s [facility] During the induction phase of oral anticoagulation, the INR may not reflect the anticoagulation status of the patient. Therapeutic ranges for INR's are: Most clinical situations: INR 2.0-3.0 Mechanical Prosthetic Valve: INR 2.5-3.5 Critical: INR >5.0 [facility] TROPONINon 10-15-2019 Troponin I.cardiac [Mass/Vol] Normal [facility] Troponin I.cardiac [Mass/Vol] ng/mL <=45 ng/L [facility] XR Chest 1 Viewon 10-15-2019 No acute cardiopulmo nary disease. Workstation ID: [id number] [facility] Interface, Rad In Luis Fernando ji Speechq - 10/15/2019 10:31 PM EDT EXAMINATION: XR CHEST PA/AP, 10/15/2019 HISTORY: diaphoresis COMPARISON: Chest, 09/22/2019. FINDINGS: Sternotomy wires are unchanged. Cardiac size, mediastinal contour and pulmonary vascularity appear within normal limits. The lungs are well expanded and appear clear. IMPRESSION: No acute cardiopulmonary disease. Workstation ID: [id number] [facility] EXAMINATION: XR CHES T PA/AP, 10/15/2019 HISTORY: diaphoresis COMPARISON: Chest, 09/22/2019. FINDINGS: Sternotomy wires are unchanged. Cardiac size, mediastinal contour and pulmonary vascularity appear within normal limits. The lungs are well expanded and appear clear. [facility] EKGon 09-23-2019 Ordered by an unspec ified provider. [facility] Lipid Panelon 09-23-2019 Cholesterol [Mass/Vol] 155 mg/dL 100 - 199 mg/dL [facility] Comment on above: National Cholesterol Education Program Guidelines: Cholesterol Desirable: <200 mg/dL Borderline High: 200-239 mg/dL High: greater than or equal to 240 mg/dL Cholesterol in HDL [Mass/Vol] 38 mg/dL Low 40 - 59 [facility] Comment on above: National Cholesterol Education Program Guidelines: HDL Cholesterol Low: <40 mg/dL Near Optimal: 40-59 mg/dL High: greater than or equal to 60 mg/dL Cholesterol in LDL [Mass/Vol] 79 mg/dL 10 - 130 mg/dL [facility] Comment on above: National Cholesterol Education Program Guidelines: LDL Cholesterol Optimal: <100 mg/dL Near Optimal/above Optimal: 100-129 mg/dL Borderline High: 130-159 mg/dL High: 160-189 mg/dL Very High: greater than or equal to 190 mg/dL Cholesterol non HDL [Mass/Vol] 117 mg/dL [facility] Comment on above: National Cholesterol Education Program Guidelines: NON HDL Cholesterol Desirable: <130 mg/dL Borderline High: 130-159 mg/dL High: 160-189 mg/dL Very High: > or = 190 mg/dL Cholesterol.total/Choles terol in HDL [Mass ratio] 4.1 {ratio} ratio [facility] Comment on above: Males Cholesterol/HD L Ratio: Average risk: 5.0 1/2 average risk: 3.4 2 x average risk: 9.6 Interpretation and review of laboratory results Abnormal [facility] Triglyceride [Mass/Vol] 192 mg/dL High 30 - 150 mg/dL [facility] Comment on above: National Cholesterol Education Program Guidelines: Triglyceride Normal: <150 mg/dL Borderline High: 150-199 mg/dL High: 200-499 mg/dL Very High: greater than or equal to 500 mg/dL MR Brain With And Without Co ntraston 09-23-2019 No acute intracrania l abnormality and no abnormal enhancement within the limitation of the study. Workstation ID: [id number] [facility] Interface, Rad In Luis Fernando Garciaq [...] limitation of the study. Workstation ID: [id number] [facility] EXAMINATION: MR XIOMARA Kincaid WITH AND [...] No tonsillar ectopia or mass is present.. [facility] POC Glucoseon 09-23-2019 Glucose [Mass/Vol] 102 mg/dL High 65 - 99 mg/dL [facility] Interpretation and review of laboratory results Abnormal [facility] Glucose [Mass/Vol] 110 mg/dL High 65 - 99 mg/dL [facility] Interpretation and review of laboratory results Abnormal [facility] Glucose [Mass/Vol] 123 mg/dL High 65 - 99 mg/dL [facility] Interpretation and review of laboratory results Abnormal [facility] Glucose [Mass/Vol] 113 mg/dL High 65 - 99 mg/dL [facility] Interpretation and review of laboratory results Abnormal [facility] CBC WITH AUTO DIFFERENTIALon 09-22-2019 Basophils (Bld) [#/Vol] 0.10 10*3/uL [facility] Basophils/100 WBC (Bld) 1.0 % [facility] Eosinophils (Bld) [#/Vol] 0.68 10*3/uL High [facility] Eosinophils/100 WBC (Bld) 6.8 % [facility] Erythrocyte distribution width (RBC) [Entitic vol] 15.9 % High 11.6 - 14.8 % [facility] Hematocrit (Bld) [Volume fraction] 44.9 % 41 - 53 % [facility] Hemoglobin (Bld) [Mass/Vol] 14.0 g/dL 13.5 - 17.5 g/dL [facility] Immature granulocytes (Bld) [#/Vol] 0.07 10*3/uL [facility] Immature granulocytes/100 WBC (Bld) 0.70 % [facility] Comment on above: The IG parameter is the percentage of metamyelocytes, myelocytes and promyelocytes. An immature granulocyte count (IG) of 1% or more suggests the possibility of infection, an IG count of 3% is very likely related to an infection. Interpretation and review of laboratory results Abnormal [facility] Lymphocytes (Bld) [#/Vol] 2.50 10*3/uL [facility] Lymphocytes/100 WBC (Bld) 25.2 % [facility] MCH (RBC) [Entitic mass] 26.6 pg 26 - 34 pg [facility] MCHC (RBC) [Mass/Vol] 31.2 g/dL 31 - 3 7 g/dL [facility] MCV (RBC) [Entitic vol] 85.2 fL 80 - 100 fL [facility] Monocytes (Bld) [#/Vol] 0.86 10*3/uL [facility] Monocytes/100 WBC (Bld) 8.7 % [facility] Neutrophils (Bld) [#/Vol] 5.72 10*3/uL [facility] Neutrophils/100 WBC (Bld) 57.6 % [facility] Nucleated RBC (Bld) [#/Vol] 0.00 10*3/uL [facility] Nucleated RBC/100 WBC (Bld) [Ratio] 0.0 % [facility] Platelet mean volume (Bld) [Entitic vol] 10.1 fL 9.4 - 12.4 fL [facility] Platelets (Bld) [#/Vol] 265 10*3/uL [facility] RBC (Bld) [#/Vol] 5.27 10*6/uL [facility] eah WBC (Bld) [#/Vol] 9.93 10*3/uL [facility] COVID-19, Molecularon 2019 Interpretation and review of laboratory results Normal [facility] SARS-CoV-2 Not Detected Not Detected [facility] Comment on above: This test was [...] at the following links: For Healthcare Providers: https://www.Sandglaz.gov/media/141764/download For Patients: https://www.[place]glaz.gov/[employer]/023499/download CT ANGIOGRAM HEAD NECKon EXAMINATION: CT EDNA [...] patient motion. There is no airway compromise. [facility], Rad In Fu ji Speechq - 09/22/2019 11:27 AM EDT EXAMINATION: CT ANGIOGRAM HEAD NECK HISTORY: ORDERING SYSTEM PROVIDED HISTORY: Ataxia, stroke suspected, TECHNOLOGIST PROVIDED HISTORY: Illness/Other Reason for exam: Ataxia, stroke suspected Encounter Type: Initial Additional signs and symptoms: Ataxia, stroke suspected ORDERING SYSTEM PROVIDED DIAGNOSIS CODES: I63.9 Acute CVA (cerebrovascular accident) ([facility]) COMPARISON: CT brain 09/22/2019. TECHNIQUE: Initial noncontrast [...] intracranial CTA. 3. No enhancing intracranial process. [facility] Workstation ID: [id number] [facility] 1. No extracranial carotid or vertebral artery stenosis. 2. Unremarkable intracranial CTA. 3. No enhancing intracranial process. [facility] Workstation ID: [id number] [facility] CT HEAD WITHOUT CONTRAST (ST ROKE)on [...] performed for further evaluation. Workstation ID: [id number] [facility] 1. No acute intracra nial hemorrhage or large vessel ischemia by noncontrast CT. 2. Chronic paranasal sinus disease. If patient has a focal neurologic deficit or there is clinical suspicion for acute cerebrovascular accident, brain MRI may be performed for further evaluation. Workstation ID: [id number] [facility] EXAMINATION: CT HEAD WITHOUT CONTRAST (STROKE) [...] acute large vessel ischemia by noncontrast CT. [facility] Chem 7on 09-22-2019 Anion gap [Moles/Vol] 11 mmol/L 10 - 2 0 mmol/L [facility] Chloride [Moles/Vol] 108 mmol/L 98 - 10 8 mmol/L [facility] Creatinine [Mass/Vol] 1.16 mg/dL 0.50 - 1.30 [facility] GFR/1.73 sq M predicted among non-blacks MDRD (S/P/Bld) [Vol rate/Area] The eGFR should be used for monitoring renal function only and not for medication dosing. [facility] GFR/1.73 sq M.predicted CKD-EPI (S/P/Bld) [Vol rate/Area] 74 >=60 mL/min/1.7 3 m2 [facility] Glucose [Mass/Vol] 129 mg/dL High 65 - 99 mg/dL [facility] HCO3 [Moles/Vol] 25 mmol/L 21 - 32 mmol/L [facility] Interpretation and review of laboratory results Abnormal [facility] Potassium [Moles/Vol] 4.3 mmol/L 3.5 - 5.1 mmol/L [facility] Sodium [Moles/Vol] 140 mmol/L 135 - 145 mmol/L [facility] Urea nitrogen [Mass/Vol] 24 mg/dL 8 - 25 mg/dL [facility] Urea nitrogen/Creatinine [Mass ratio] 20.7 mg/mg High [facility] ECG 12-LEADon 09-22-2019 Atrial Rate 67 BPM [facility] P [place] 63 degrees [facility] P-R Interval 172 ms [facility] Q-T Interval 404 ms [facility] QRS Duration 86 ms [facility] QTC Calculation (Bezet) 426 ms [facility] R [place] 11 degrees [facility] T [place] 79 degrees [facility] Ventricular Rate 67 BPM [facility] Normal sinus rhythm Low voltage QRS Possible Anterolateral infarct , age undetermined Abnormal ECG ECG Cart Interpretation see physician note for interpretation. Confirmed by Brandy Kc ([id number]) on 09/22/2019 3:33:43 PM [facility] Hemoglobin A1con 09-22-2019 Average glucose Estimated from glycated hemoglobin mass conc (Bld) 137 mg/dL High 68 - 114 mg/dL [facility] HbA1c (Bld) [Mass fraction] 6.4 % High 4 - 5.6 % [facility] Interpretation and review of laboratory results Abnormal [facility] Normal: 4.0% - 5.6% Increased risk for diabetes: 5.7% - 6.4% Diabetes: >= 6.5% Pediatrics: No established reference range Estimated average glucose: 68-114 mg/dL [facility] Metabolic Panelon 09-22-2019 Glucose [Mass/Vol] 126 mg/dL High 65 - 99 mg/dL [facility] Otheron 09-22-2019 Extra Tube Hold for add-ons. [facility] Comment on above: Auto resulted. Interpretation and review of laboratory results Abnormal [facility] POC Glucoseon 09-22-2019 Glucose [Mass/Vol] 121 mg/dL High 65 - 99 mg/dL [facility] Interpretation and review of laboratory results Abnormal [facility] Glucose [Mass/Vol] 164 mg/dL High 65 - 99 mg/dL [facility] Interpretation and review of laboratory results Abnormal [facility] Glucose [Mass/Vol] 105 mg/dL High 65 - 99 mg/dL [facility] Interpretation and review of laboratory results Abnormal [facility] TROPONINon 09-22-2019 Troponin I.cardiac [Mass/Vol] ng/mL <=45 ng/L [facility] Troponin I.cardiac [Mass/Vol] Normal [facility] XR Chest 1 Viewon 09-22-2019 1. Prior median sternotomy with mild cardiomegaly. 2. No acute cardiopulmonary process otherwise suspected. [facility] Workstation ID: [id number] [facility] Interface, Rad In Fu ji Speechq [...] process otherwise suspected. [facility] Workstation ID: [id number] [facility] EXAMINATION: XR CHES T PA/AP 09/22/2019 [...] No acute osseous abnormality is otherwise identified. [facility] MONITORED CARDIAC REHAB SESS IONon 03-17-2019 ANGINA N [facility] ENDING HR 103 [facility] EXT - ADMIT TO CR DATE 01/31/2019 [facility] Max HR 118 [facility] Max Mets 4.4 [facility] MODE Treadmill [facility] RESTING HR 96 [facility] SESSION DATE 03/17/2019 [facility] SESSION [facility] SESSION LENGTH 0:45:52 [facility] SESSION LIST Session List: [id number]/[id number]/12/[id number] 03/13/[id number]/[id number] Scheduled:4 Attended:1 Compliance:25% [facility] SESSION NUMBER 1 [facility] SESSION THR [id number] [facility] STATUS Cardiac Phase II [facility] Stress test only, exerciseon 03-13-2019 Angina Index 0 [facility] Baseline BP 124/68 mmHg [facility] Baseline HR 81 bpm [facility] Sutherland Treadmill Score 6.00 [facility] Estimated workload 7.0 METS [facility] alth Exercise duration (min) 6 min [facility] Exercise duration (sec) 0 sec [facility] Percent of predicted max HR 65 % [facility] Post peak BP 148/70 mmHg [facility] Post peak HR 113 bpm [facility] ST Elevation (mm) 0 mm [facility] Target HR 147 bpm [facility] Stress test results reviewed. Agree with below findings. [place] treadmill score not applicable. [facility] XR CHEST AP/PA AND LATon EXAMINATION: [...] pneumothorax. There is no acute osseous abnormality. [facility] Bibasilar atelectasi s with mild bronchial thickening. Central vascular prominence without edema. No consolidation, effusion, or pneumothorax. [facility]/ Workstation ID: [id number] [facility], Rad In ji Speech - 02/26/2019 2:44 [...] effusion, or pneumothorax. [facility]/hb Workstation ID: [id number] [facility] Basic Metabolic Panelon 02-12 Anion gap [Moles/Vol] 9 mmol/L Low 10 - 2 0 mmol/L [facility] Calcium [Mass/Vol] 8.6 mg/dL 8.4 - 10. 2 mg/dL [facility] Chloride [Moles/Vol] 105 mmol/L 98 - 10 8 mmol/L [facility] Creatinine [Mass/Vol] 1.10 mg/dL 0.5 - 1.3 mg/dL [facility] GFR/1.73 sq M predicted among non-blacks MDRD (S/P/Bld) [Vol rate/Area] The eGFR should be used for monitoring renal function only and not for medication dosing. [facility] GFR/1.73 sq M.predicted CKD-EPI (S/P/Bld) [Vol rate/Area] 80 >=60 mL/min/1.7 3 m2 [facility] Glucose [Mass/Vol] 104 mg/dL High 65 - 99 mg/dL [facility] HCO3 [Moles/Vol] 28 mmol/L 21 - 32 mmol/L [facility] Interpretation and review of laboratory results Abnormal [facility] Potassium [Moles/Vol] 3.7 mmol/L 3.5 - 5.1 mmol/L [facility] Sodium [Moles/Vol] 138 mmol/L 135 - 145 mmol/L [facility] Urea nitrogen [Mass/Vol] 20 mg/dL 8 - 25 mg/dL [facility] Urea nitrogen/Creatinine [Mass ratio] 18.2 mg/mg [facility] CBC WITH AUTO DIFFERENTIALon 02-25-2019 Basophils (Bld) [#/Vol] 0.14 10*3/uL [facility] Basophils/100 WBC (Bld) 0.9 % [facility] Eosinophils (Bld) [#/Vol] 2.35 10*3/uL High [facility] Eosinophils/100 WBC (Bld) 15.2 % [facility] Erythrocyte distribution width (RBC) [Entitic vol] 14.8 % 11.6 - 14.8 % [facility] Hematocrit (Bld) [Volume fraction] 39.9 % Low 41 - 53 % [facility] Hemoglobin (Bld) [Mass/Vol] 13.0 g/dL Low 13.5 - 17.5 g/dL [facility] Immature granulocytes (Bld) [#/Vol] 0.14 10*3/uL [facility] Immature granulocytes/100 WBC (Bld) 0.90 % [facility] Comment on above: The IG parameter is the percentage of metamyelocytes, myelocytes, and promyelocytes. Interpretation and review of laboratory results Abnormal [facility] Lymphocytes (Bld) [#/Vol] 3.46 10*3/uL [facility] Lymphocytes/100 WBC (Bld) 22.4 % [facility] MCH (RBC) [Entitic mass] 26.5 pg 26 - 34 pg [facility] MCHC (RBC) [Mass/Vol] 32.6 g/dL 31 - 3 7 g/dL [facility] MCV (RBC) [Entitic vol] 81.4 fL 80 - 100 fL [facility] Monocytes (Bld) [#/Vol] 1.39 10*3/uL [facility] Monocytes/100 WBC (Bld) 9.0 % [facility] Neutrophils (Bld) [#/Vol] 7.99 10*3/uL [facility] Neutrophils/100 WBC (Bld) 51.6 % [facility] Nucleated RBC (Bld) [#/Vol] 0.00 10*3/uL [facility] Nucleated RBC/100 WBC (Bld) [Ratio] 0.0 % [facility] Platelet mean volume (Bld) [Entitic vol] 9.3 fL 9 - 15.5 fL [facility] Platelets (Bld) [#/Vol] 406 10*3/uL [facility] RBC (Bld) [#/Vol] 4.90 10*6/uL [facility] ealth WBC (Bld) [#/Vol] 15.47 10*3/uL [facility] CT PULMONARY ARTERIESon 02-12 CT ANGIOGRAPHY CHEST WITH INTRAVENOUS CONTRAST ([id number]) CLINICAL HISTORY: ORDERING SYSTEM PROVIDED Dyspnea. S/P [...] FINDINGS: Postsurgical changes in the anterior midline. [facility] Interface, Rad In Fu ji Speechq - 02/25/2019 10:[address] ANGIOGRAPHY CHEST WITH INTRAVENOUS CONTRAST ([id number]) CLINICAL HISTORY: ORDERING SYSTEM PROVIDED Dyspnea. S/P [...] LEFT lung base; however. Workstation ID: [id number] [facility] - NO evidence of pulmonary embolus [...] LEFT lung base; however. Workstation ID: [id number] [facility] ECG 12-LEADon 02-25-2019 Atrial Rate 83 BPM [facility] P [place] 55 degrees [facility] P-R Interval 164 ms [facility] Q-T Interval 360 ms [facility] QRS Duration 88 ms [facility] QTC Calculation (Bezet) 423 ms [facility] R [place] 24 degrees [facility] T [place] 98 degrees [facility] Ventricular Rate 83 BPM [facility] Normal sinus rhythm Possible Left atrial enlargement Anteroseptal infarct , age undetermined T wave abnormality, consider lateral ischemia Abnormal ECG ECG Cart Interpretation see physician note for interpretation. Confirmed by Brandy Kc ([id number]) on 02/25/2019 10:46:50 PM [facility] NT Pro BNPon 02-25-2019 Interpretation and review of laboratory results Normal [facility] Natriuretic peptide.B prohormone N-Terminal [Mass/Vol] 227 pg/mL 0 - 300 pg/mL [facility] Pride Study Cut-offs Rule In: < /= 50 Years >450 pg/mL 51 Years - 75 Years >900 pg/mL 76 Years - 99 Years >1800 pg/mL Rule Out: All patients <300 pg/mL [facility] Otheron 02-25-2019 Extra Tube Hold for add-ons. [facility] Comment on above: Auto resulted. PT/INR (if on Coumadin)on INR Coag (PPP) [Relative time] 1.0 {INR} [facility] Interpretation and review of laboratory results Normal [facility] PT Coag (PPP) [Time] 12.5 s [facility] During the induction phase of oral anticoagulation, the INR may not reflect the anticoagulation status of the patient. Therapeutic ranges for INR's are: Most clinical situations: INR 2.0-3.0 Mechanical Prosthetic Valve: INR 2.5-3.5 Critical: INR >5.0 [facility] TROPONINon 02-25-2019 Troponin I.cardiac [Mass/Vol] Normal [facility] Troponin I.cardiac [Mass/Vol] ng/mL <=45 ng/L [facility] XR CHEST AP/PA AND LATon Mild improved aerati on of the left lung base, compared to 02/13/2019. Small residual left basilar pleural effusion. Recent CABG with stable mediastinal contours. ST/[employer] Workstation ID: [id number] [facility] EXAMINATION: XR CHES T AP/PA AND [...] sternotomy and CABG. Mediastinal contours are stable. [facility] Interface, Rad In Fu ji Speechq [...] stable mediastinal contours. ST/trn Workstation ID: [id number] [facility] XR CHEST AP/PA AND LATon No significant inter tatiana change compared to 02/06/2019. Small bibasilar pleural effusions with left basilar atelectasis. Recent CABG with stable mediastinal contours. ST/trw Workstation ID: [id number] [facility] EXAMINATION: XR CHES T AP/PA AND [...] median sternotomy and CABG. Stable mediastinal contours. [facility] Interface, Rad In Fu ji Speechq [...] stable mediastinal contours. ST/trw Workstation ID: [id number] [facility] XR CHEST AP/PA AND LATon Slight fluid and atelectasis suggested in the left lung base showing improvement from the prior study. Workstation ID: [id number] [facility] EXAMINATION: XR CHES T AP/PA AND [...] base. Lung markings appear to be unremarkable. [facility], Rad In Fu ji Speechq - 02/06/2019 [...] from the prior study. Workstation ID: [id number] [facility] Basic Metabolic Panelon 01-13 Anion gap [Moles/Vol] 9 mmol/L Low 10 - 2 0 mmol/L [facility] Calcium [Mass/Vol] 8.6 mg/dL 8.4 - 10. 2 mg/dL [facility] Chloride [Moles/Vol] 106 mmol/L 98 - 10 8 mmol/L [facility] Creatinine [Mass/Vol] 1.06 mg/dL 0.5 - 1.3 mg/dL [facility] GFR/1.73 sq M predicted among non-blacks MDRD (S/P/Bld) [Vol rate/Area] The eGFR should be used for monitoring renal function only and not for medication dosing. [facility] GFR/1.73 sq M.predicted CKD-EPI (S/P/Bld) [Vol rate/Area] 83 >=60 mL/min/1.7 3 m2 [facility] Glucose [Mass/Vol] 106 mg/dL High 65 - 99 mg/dL [facility] HCO3 [Moles/Vol] 27 mmol/L 21 - 32 mmol/L [facility] Interpretation and review of laboratory results Abnormal [facility] Potassium [Moles/Vol] 4.0 mmol/L 3.5 - 5.1 mmol/L [facility] Sodium [Moles/Vol] 138 mmol/L 135 - 145 mmol/L [facility] Urea nitrogen [Mass/Vol] 27 mg/dL High 8 - 25 mg/dL [facility] Urea nitrogen/Creatinine [Mass ratio] 25.5 mg/mg High [facility] CBCon 02-04-2019 Erythrocyte distribution width (RBC) [Entitic vol] 14.3 % 11.6 - 14.8 % [facility] Hematocrit (Bld) [Volume fraction] 35.4 % Low 41 - 53 % [facility] Hemoglobin (Bld) [Mass/Vol] 11.5 g/dL Low 13.5 - 17.5 g/dL [facility] Interpretation and review of laboratory results Abnormal [facility] MCH (RBC) [Entitic mass] 27.8 pg 26 - 34 pg [facility] MCHC (RBC) [Mass/Vol] 32.5 g/dL 31 - 3 7 g/dL [facility] MCV (RBC) [Entitic vol] 85.5 fL 80 - 100 fL [facility] Nucleated RBC (Bld) [#/Vol] 0.00 10*3/uL [facility] Nucleated RBC/100 WBC (Bld) [Ratio] 0.0 % [facility] Platelet mean volume (Bld) [Entitic vol] 8.6 fL Low 9 - 15.5 fL [facility] Platelets (Bld) [#/Vol] 514 10*3/uL High [facility] RBC (Bld) [#/Vol] 4.14 10*6/uL Low [facility] WBC (Bld) [#/Vol] 12.92 10*3/uL High [facility] POC Glucoseon 02-04-2019 Glucose [Mass/Vol] 107 mg/dL High 65 - 99 mg/dL [facility] Interpretation and review of laboratory results Abnormal [facility] XR Chest 1 Viewon 02-04-2019 Improving congestive pattern and lung volumes with persistent consolidation and small effusion in the left base. Workstation ID: [id number] [facility] EXAMINATION: XR CHES T PA/AP HISTORY: post-op COMPARISON: Chest radiograph, yesterday at 11:49 a.m. FINDINGS: Cardiomediastinal silhouette is normal. Improved lung volumes and diminishing vascular congestion. Persistent atelectasis and small effusion at the left base. No large right pleural effusion. No acute osseous abnormality. Prior median sternotomy. [facility] Sharda, Keith In Fu ji Speechq [...] in the left base. Workstation ID: [id number] [facility] Basic Metabolic Panelon 01-13 Anion gap [Moles/Vol] 11 mmol/L 10 - 2 0 mmol/L [facility] Calcium [Mass/Vol] 9.0 mg/dL 8.4 - 10. 2 mg/dL [facility] Chloride [Moles/Vol] 104 mmol/L 98 - 10 8 mmol/L [facility] Creatinine [Mass/Vol] 1.03 mg/dL 0.5 - 1.3 mg/dL [facility] GFR/1.73 sq M predicted among non-blacks MDRD (S/P/Bld) [Vol rate/Area] The eGFR should be used for monitoring renal function only and not for medication dosing. [facility] GFR/1.73 sq M.predicted CKD-EPI (S/P/Bld) [Vol rate/Area] 86 >=60 mL/min/1.7 3 m2 [facility] Glucose [Mass/Vol] 109 mg/dL High 65 - 99 mg/dL [facility] HCO3 [Moles/Vol] 26 mmol/L 21 - 32 mmol/L [facility] Interpretation and review of laboratory results Abnormal [facility] Potassium [Moles/Vol] 4.1 mmol/L 3.5 - 5.1 mmol/L [facility] Sodium [Moles/Vol] 137 mmol/L 135 - 145 mmol/L [facility] Urea nitrogen [Mass/Vol] 26 mg/dL High 8 - 25 mg/dL [facility] Urea nitrogen/Creatinine [Mass ratio] 25.2 mg/mg High [facility] CBCon 02-03-2019 Erythrocyte distribution width (RBC) [Entitic vol] 14.3 % 11.6 - 14.8 % [facility] Hematocrit (Bld) [Volume fraction] 36.8 % Low 41 - 53 % [facility] Hemoglobin (Bld) [Mass/Vol] 12.1 g/dL Low 13.5 - 17.5 g/dL [facility] Interpretation and review of laboratory results Abnormal [facility] MCH (RBC) [Entitic mass] 27.9 pg 26 - 34 pg [facility] MCHC (RBC) [Mass/Vol] 32.9 g/dL 31 - 3 7 g/dL [facility] MCV (RBC) [Entitic vol] 84.8 fL 80 - 100 fL [facility] Nucleated RBC (Bld) [#/Vol] 0.00 10*3/uL [facility] Nucleated RBC/100 WBC (Bld) [Ratio] 0.0 % [facility] Platelet mean volume (Bld) [Entitic vol] 8.6 fL Low 9 - 15.5 fL [facility] Platelets (Bld) [#/Vol] 525 10*3/uL High [facility] RBC (Bld) [#/Vol] 4.34 10*6/uL Low [facility] ealth WBC (Bld) [#/Vol] 14.25 10*3/uL [facility] POC Glucoseon 02-03-2019 Glucose [Mass/Vol] 117 mg/dL High 65 - 99 mg/dL [facility] Interpretation and review of laboratory results Abnormal [facility] Glucose [Mass/Vol] 111 mg/dL High 65 - 99 mg/dL [facility] Interpretation and review of laboratory results Abnormal [facility] VR Thoracentesis Lefton -2 1. Small left pleura l effusion 2. Successful ultrasound-guided left thoracentesis. Approximately 250 mL of blood-tinged fluid was removed from the left pleural space. A sample of fluid was placed in the custody of the patient's nurse for potential laboratory analysis to be ordered by the primary service. Workstation ID: [id number] [facility] EXAMINATION: ULTRASOUND-GUIDED LEFT THORACENTESIS HISTORY: Recent coronary artery bypass grafting. Left pleural effusion. [employer]ATIONSH[employer] MANAGER(S): Gilmer Zelaya MD COMPARISON: Chest radiograph dated [...] 1% lidocaine. Under ultrasound guidance, a 5 Kos[place] AdTonik slip catheter and introducer needle were advanced [...] and the patient tolerated the procedure well. [facility] Interface, Rad In Fu ji Speechq - 02/03/2019 10:12 PM EST EXAMINATION: ULTRASOUND-GUIDED LEFT THORACENTESIS HISTORY: Recent coronary artery bypass grafting. Left pleural effusion. BUSINESS BANKING RELATIONSHIP MANAGER(S): Gilmer Zelaya MD COMPARISON: Chest radiograph dated [...] 1% lidocaine. Under ultrasound guidance, a 5 [place] AdTonik slip catheter and introducer needle were advanced [...] by the primary service. Workstation ID: [id number] [facility] XR Chest 1 Viewon 02-03-2019 No pneumothorax stat us post left thoracentesis. RPS/trw Workstation ID: [id number] [facility] EXAMINATION: XR CHES T PA/AP 02/03/2019 [...] small left pleural effusion and strandy atelectasis. [facility] Interface, Rad In Fu ji Speechq [...] post left thoracentesis. RPS/trw Workstation ID: [id number] [facility] Interface, Rad In Fu ji Speechq [...] 3. Mild cardiomegaly. RSR/hb Workstation ID: [id number] [facility] EXAMINATION: XR CHES T PA/AP 02/03/2019 [...] is similar. The right lung is clear. [facility] 1. Low lung volumes. 2. Left basal effusion with atelectasis and/or infiltrate similar. 3. Mild cardiomegaly. RSR/hb Workstation ID: [id number] [facility] CBCon 02-02-2019 Erythrocyte distribution width (RBC) [Entitic vol] 14.4 % 11.6 - 14.8 % [facility] Hematocrit (Bld) [Volume fraction] 34.8 % Low 41 - 53 % [facility] Hemoglobin (Bld) [Mass/Vol] 11.4 g/dL Low 13.5 - 17.5 g/dL [facility] Interpretation and review of laboratory results Abnormal [facility] MCH (RBC) [Entitic mass] 27.9 pg 26 - 34 pg [facility] MCHC (RBC) [Mass/Vol] 32.8 g/dL 31 - 3 7 g/dL [facility] MCV (RBC) [Entitic vol] 85.3 fL 80 - 100 fL [facility] Nucleated RBC (Bld) [#/Vol] 0.02 10*3/uL High [facility] Nucleated RBC/100 WBC (Bld) [Ratio] 0.1 % [facility] Platelet mean volume (Bld) [Entitic vol] 8.9 fL Low 9 - 15.5 fL [facility] Platelets (Bld) [#/Vol] 555 10*3/uL High [facility] RBC (Bld) [#/Vol] 4.08 10*6/uL [facility]alth WBC (Bld) [#/Vol] 14.43 10*3/uL [facility] CT PULMONARY ARTERIESon 12-2 1. Fcco-wf-pvtffnqr effusion with mild atelectasis in the left lung base. Remaining lungs show hyperaeration with mild chronic changes. 2. No evidence for acute mediastinal process or pulmonary embolism, it should be noted that there was limited opacification of the pulmonary arterial tree. 3. No evidence for lymphadenopathy. 4. Chronic and postsurgical changes noted. Workstation ID: [id number] [facility] EXAMINATION: CT PULM ONARY ARTERIES HISTORY: [...] good aeration. There is mild atelectasis and ouse-ed-tmcnbbsp effusion in the left lung base. Slight chronic changes are noted off the hilar and infrahilar regions. No suspicious nodule is noted. Bone density is unremarkable. No bony lesions are noted throughout. No advanced degenerative changes are noted diffusely. No obvious bony lesions are noted. The subcutaneous tissues are unremarkable. [facility], Rad In Fu ji Speechq - 02/02/2019 [...] good aeration. There is mild atelectasis and cchw-gt-tdvevvna effusion in the left lung base. Slight chronic changes are noted off the hilar and infrahilar regions. No suspicious nodule is noted. Bone density is unremarkable. No bony lesions are noted throughout. No advanced degenerative changes are noted diffusely. No obvious bony lesions are noted. The subcutaneous tissues are unremarkable. IMPRESSION: 1. Pptl-uj-tlthmdqm effusion with mild atelectasis in the left lung base. Remaining lungs show hyperaeration with mild chronic changes. 2. No evidence for acute mediastinal process or pulmonary embolism, it should be noted that there was limited opacification of the pulmonary arterial tree. 3. No evidence for lymphadenopathy. 4. Chronic and postsurgical changes noted. Workstation ID: [id number] [facility] POC ARTERIAL BLOOD GAS PANEL -AKIBrennan Srini Wayne 02-02-2019 Alveolar-arterial oxygen Partial pressure difference 28.2 mm Hg [facility] Base excess Calc (Bld) [Moles/Vol] 3.6 mmol/L High [facility] Breath rate setting Ventilator synchronized intermittent mandatory 0 [facility] CO2 (Bld) [Partial pressure] 38.6 mm[Hg] [facility] HCO3 (Bld) [Moles/Vol] 27.6 mmol/L High 22 - 26 mmol/L [facility] Hematocrit (BldA) [Volume fraction] 36.8 % Low 41 - 53 % [facility] Hemoglobin (Bld) [Mass/Vol] 12.0 g/dL Low 13.5 - 18 g/dL [facility] Inhaled oxygen concentration 21 % [facility] Interpretation and review of laboratory results Abnormal [facility] Oxygen (Bld) [Partial pressure] 72 mm[Hg] Low [facility] PEEP Respiratory system 0 [facility] pH (Bld) 7.46 [pH] High [facility] SaO2% (BldA) [Mass fraction] 95.1 % 92 - 99 % [facility] Specimen source Nom (Unsp spec) Radial, left [facility] Tidal volume setting Ventilator 0 [facility] POC Glucoseon 02-02-2019 Glucose [Mass/Vol] 93 mg/dL 65 - 99 mg/dL [facility] Interpretation and review of laboratory results Normal [facility] XR CHEST AP/PA AND LATon 1. Interval developm ent of left basilar consolidation with left pleural effusion. 2. Trace right pleural effusion. [employer] Workstation ID: [id number] [facility] EXAMINATION: TWO-VIE W CHEST HISTORY: ORDERING [...] normal. No acute osseous lesions are seen. [facility] Interface, Rad In Fu ji Speechq [...] pleural effusion. 2. Trace right pleural effusion. [employer] Workstation ID: [id number] [facility] XR CHEST AP/PA AND LATon Pulmonary venous congestion with small pleural effusions. Recent CABG with stable mediastinal contours. ST/ Workstation ID: [id number] [facility] EXAMINATION: XR CHES T AP/PA AND [...] median sternotomy and CABG. Stable mediastinal contours. [facility] Interface, Rad In Luis Fernando ji [...] stable mediastinal contours. / Workstation ID: [id number] [facility] Basic Metabolic Panelon 01-12 Anion gap [Moles/Vol] 11 mmol/L 10 - 2 0 mmol/L [facility] Calcium [Mass/Vol] 8.6 mg/dL 8.4 - 10. 2 mg/dL [facility] Chloride [Moles/Vol] 105 mmol/L 98 - 10 8 mmol/L [facility] Creatinine [Mass/Vol] 1.08 mg/dL 0.5 - 1.3 mg/dL [facility] GFR/1.73 sq M.predicted CKD-EPI (S/P/Bld) [Vol rate/Area] 81 >=60 mL/min/1.7 3 m2 [facility] Glucose [Mass/Vol] 101 mg/dL High 65 - 99 mg/dL [facility] HCO3 [Moles/Vol] 26 mmol/L 21 - 32 mmol/L [facility] Interpretation and review of laboratory results Abnormal [facility] Potassium [Moles/Vol] 4.2 mmol/L 3.5 - 5.1 mmol/L [facility] Sodium [Moles/Vol] 138 mmol/L 135 - 145 mmol/L [facility] Urea nitrogen [Mass/Vol] 29 mg/dL High 8 - 25 mg/dL [facility] Urea nitrogen/Creatinine [Mass ratio] 26.9 mg/mg High [facility] The eGFR should be u sed for monitoring renal function only and not for medication dosing. [facility] CBCon 01-29-2019 Erythrocyte distribution width (RBC) [Entitic vol] 14.2 % 11.6 - 14.8 % [facility] Hematocrit (Bld) [Volume fraction] 33.7 % Low 41 - 53 % [facility] Hemoglobin (Bld) [Mass/Vol] 10.9 g/dL Low 13.5 - 17.5 g/dL [facility] Interpretation and review of laboratory results Abnormal [facility] MCH (RBC) [Entitic mass] 27.9 pg 26 - 34 pg [facility] MCHC (RBC) [Mass/Vol] 32.3 g/dL 31 - 3 7 g/dL [facility] MCV (RBC) [Entitic vol] 86.2 fL 80 - 100 fL [facility] Nucleated RBC (Bld) [#/Vol] 0.00 10*3/uL [facility] Nucleated RBC/100 WBC (Bld) [Ratio] 0.0 % [facility] Platelet mean volume (Bld) [Entitic vol] 9.7 fL 9 - 15.5 fL [facility] Platelets (Bld) [#/Vol] 277 10*3/uL [facility] RBC (Bld) [#/Vol] 3.91 10*6/uL Low [facility] ealth WBC (Bld) [#/Vol] 9.70 10*3/uL [facility] ECG 12-LEADon 01-29-2019 Atrial Rate 84 BPM [facility] P [place] 51 degrees [facility] P-R Interval 168 ms [facility] Q-T Interval 344 ms [facility] QRS Duration 92 ms [facility] QTC Calculation (Bezet) 406 ms [facility] R [place] 17 degrees [facility] T [place] 66 degrees [facility] Ventricular Rate 84 BPM [facility] Normal sinus rhythm Anterolateral infarct , age undetermined Abnormal ECG Confirmed by Torie Au MD ([id number]) on 01/29/2019 1:02:22 PM [facility] Magnesium Levelon 01-29-2019 Interpretation and review of laboratory results Normal [facility] Magnesium [Mass/Vol] 2.3 mg/dL 1.6 - 2 .4 mg/dL [facility] POC Glucoseon 01-29-2019 Glucose [Mass/Vol] 102 mg/dL High 65 - 99 mg/dL [facility] Interpretation and review of laboratory results Abnormal [facility] Glucose [Mass/Vol] 104 mg/dL High 65 - 99 mg/dL [facility] Interpretation and review of laboratory results Abnormal [facility] TROPONINon 01-29-2019 Troponin I.cardiac [Mass/Vol] ng/mL <=45 ng/L [facility] Troponin I.cardiac [Mass/Vol] Normal [facility] XR Chest 1 Viewon 01-29-2019 Interval removal of the right internal jugular catheter. The cardiopulmonary structures are stable. [employer] Workstation ID: [id number] [facility] Interface, Rad In Fu ji Speechq [...] complication, without long-term current use of insulin (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) COMPARISON: 01/28/2019. TECHNIQUE: AP upright portable chest. FINDINGS: The lungs are clear and well expanded. Hemidiaphragms are smooth. Heart size is normal. There are mediastinal surgical changes with sternal wires present. The right internal jugular catheter has been removed. traffic monitor specialist leads are noted upon the chest wall. IMPRESSION: Interval removal of the right internal jugular catheter. The cardiopulmonary structures are stable. 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 TECHNIQUE: AP upright portable chest. FINDINGS: The lungs are clear and well expanded. Hemidiaphragms are smooth. Heart size is normal. There are mediastinal surgical changes with sternal wires present. The right internal jugular catheter has been removed. traffic monitor specialist leads are noted upon the chest wall. [facility] Basic Metabolic Panelon 01-12 Anion gap [Moles/Vol] 9 mmol/L Low 10 - 2 0 mmol/L [facility] Calcium [Mass/Vol] 8.2 mg/dL Low 8.4 - 10. 2 mg/dL [facility] Chloride [Moles/Vol] 105 mmol/L 98 - 10 8 mmol/L [facility] Creatinine [Mass/Vol] 1.04 mg/dL 0.5 - 1.3 mg/dL [facility] GFR/1.73 sq M.predicted CKD-EPI (S/P/Bld) [Vol rate/Area] 85 >=60 mL/min/1.7 3 m2 [facility] Glucose [Mass/Vol] 105 mg/dL High 65 - 99 mg/dL [facility] HCO3 [Moles/Vol] 26 mmol/L 21 - 32 mmol/L [facility] Interpretation and review of laboratory results Abnormal [facility] Potassium [Moles/Vol] 4.1 mmol/L 3.5 - 5.1 mmol/L [facility] Sodium [Moles/Vol] 136 mmol/L 135 - 145 mmol/L [facility] Urea nitrogen [Mass/Vol] 31 mg/dL High 8 - 25 mg/dL [facility] Urea nitrogen/Creatinine [Mass ratio] 29.8 mg/mg High [facility] The eGFR should be u sed for monitoring renal function only and not for medication dosing. [facility] CBCon 01-28-2019 Erythrocyte distribution width (RBC) [Entitic vol] 14.2 % 11.6 - 14.8 % [facility] Hematocrit (Bld) [Volume fraction] 30.5 % Low 41 - 53 % [facility] Hemoglobin (Bld) [Mass/Vol] 10.1 g/dL Low 13.5 - 17.5 g/dL [facility] Interpretation and review of laboratory results Abnormal [facility] MCH (RBC) [Entitic mass] 28.2 pg 26 - 34 pg [facility] MCHC (RBC) [Mass/Vol] 33.1 g/dL 31 - 3 7 g/dL [facility] MCV (RBC) [Entitic vol] 85.2 fL 80 - 100 fL [facility] Nucleated RBC (Bld) [#/Vol] 0.00 10*3/uL [facility] Nucleated RBC/100 WBC (Bld) [Ratio] 0.0 % [facility] Platelet mean volume (Bld) [Entitic vol] 9.8 fL 9 - 15.5 fL [facility] Platelets (Bld) [#/Vol] 212 10*3/uL [facility] RBC (Bld) [#/Vol] 3.58 10*6/uL Low [facility]alth WBC (Bld) [#/Vol] 10.07 10*3/uL [facility] Magnesium Levelon 01-28-2019 Interpretation and review of laboratory results Normal [facility] Magnesium [Mass/Vol] 2.4 mg/dL 1.6 - 2 .4 mg/dL [facility] POC Glucoseon 01-28-2019 Glucose [Mass/Vol] 113 mg/dL High 65 - 99 mg/dL [facility] Interpretation and review of laboratory results Abnormal [facility] Glucose [Mass/Vol] 114 mg/dL High 65 - 99 mg/dL [facility] Interpretation and review of laboratory results Abnormal [facility] Glucose [Mass/Vol] 93 mg/dL 65 - 99 mg/dL [facility] Interpretation and review of laboratory results Normal [facility] Glucose [Mass/Vol] 110 mg/dL High 65 - 99 mg/dL [facility] Interpretation and review of laboratory results Abnormal [facility] Glucose [Mass/Vol] 115 mg/dL High 65 - 99 mg/dL [facility] Interpretation and review of laboratory results Abnormal [facility] XR Chest 1 Viewon 01-28-2019 Cardiomegaly. No pulmonary edema. Linear scarring or atelectasis at the left lung apex and left lung base, as before. [facility] Workstation ID: [id number] [facility] Interface, Rad In Luis Fernando yi [...] complication, without long-term current use of insulin ([facility]) I25.10 Coronary artery disease, angina presence unspecified, unspecified vessel or lesion type, unspecified whether [place] or transplanted heart COMPARISON: 01/27/2019 and 01/26/2019. [...] apex and left lung base, as before. [facility] Workstation ID: [id number] [facility] EXAMINATION: XR CHES T PA/AP HISTORY: ORDERING SYSTEM PROVIDED HISTORY: post open heart surgery, TECHNOLOGIST PROVIDED HISTORY: Illness/Other Reason for exam: S/P CABG Cancer History: u Surgery, RadiationHistory: yes Encounter Type: Subsequent/Follow-up Additional signs and symptoms: NA ORDERING SYSTEM PROVIDED DIAGNOSIS CODES: R07.89 Chest pain, atypical E11.9 Type 2 diabetes mellitus without complication, without long-term current use of insulin ([facility]) I25.10 Coronary artery disease, angina presence unspecified, unspecified vessel or lesion type, unspecified whether [place] or transplanted heart COMPARISON: 01/27/2019 and 01/26/2019. FINDINGS: Right IJ central venous catheter with tip projected over the mid SVC. Prior median sternotomy and CABG. Cardiomegaly. No pulmonary edema, pleural effusion or pneumothorax. Persistent linear atelectatic changes at the left lung apex and left lung base. Osseous structures are intact. [facility] AMYLASEon 01-27-2019 Amylase [Catalytic activity/Vol] 28 U/L 25 - 115 U/L [facility] Interpretation and review of laboratory results Normal [facility] Basic Metabolic Panelon 01-12 Anion gap [Moles/Vol] 16 mmol/L 10 - 2 0 mmol/L [facility] Calcium [Mass/Vol] 8.6 mg/dL 8.4 - 10. 2 mg/dL [facility] Chloride [Moles/Vol] 97 mmol/L Low 98 - 10 8 mmol/L [facility] Creatinine [Mass/Vol] 3.10 mg/dL High 0.5 - 1.3 mg/dL [facility] GFR/1.73 sq M.predicted CKD-EPI (S/P/Bld) [Vol rate/Area] 23 Low >=60 mL/min/1.7 3 m2 [facility] Glucose [Mass/Vol] 123 mg/dL High 65 - 99 mg/dL [facility] HCO3 [Moles/Vol] 23 mmol/L 21 - 32 mmol/L [facility] Interpretation and review of laboratory results Abnormal [facility] Potassium [Moles/Vol] 4.5 mmol/L 3.5 - 5.1 mmol/L [facility] Sodium [Moles/Vol] 131 mmol/L Low 135 - 145 mmol/L [facility] Urea nitrogen [Mass/Vol] 43 mg/dL High 8 - 25 mg/dL [facility] Urea nitrogen/Creatinine [Mass ratio] 13.9 mg/mg [facility] The eGFR should be u sed for monitoring renal function only and not for medication dosing. [facility] CBCon 01-27-2019 Erythrocyte distribution width (RBC) [Entitic vol] 14.0 % 11.6 - 14.8 % [facility] Hematocrit (Bld) [Volume fraction] 33.9 % Low 41 - 53 % [facility] Hemoglobin (Bld) [Mass/Vol] 11.2 g/dL Low 13.5 - 17.5 g/dL [facility] Interpretation and review of laboratory results Abnormal [facility] MCH (RBC) [Entitic mass] 28.3 pg 26 - 34 pg [facility] MCHC (RBC) [Mass/Vol] 33.0 g/dL 31 - 3 7 g/dL [facility] MCV (RBC) [Entitic vol] 85.6 fL 80 - 100 fL [facility] Nucleated RBC (Bld) [#/Vol] 0.00 10*3/uL [facility] Nucleated RBC/100 WBC (Bld) [Ratio] 0.0 % [facility] Platelet mean volume (Bld) [Entitic vol] 10.2 fL 9 - 15.5 fL [facility] Platelets (Bld) [#/Vol] 194 10*3/uL [facility] RBC (Bld) [#/Vol] 3.96 10*6/uL Low [facility] ealt WBC (Bld) [#/Vol] 16.03 10*3/uL [facility] ECG 12-LEADon 01-27-2019 Atrial Rate 105 BPM [facility] P [place] 50 degrees [facility] P-R Interval 144 ms [facility] Q-T Interval 314 ms [facility] QRS Duration 86 ms [facility] QTC Calculation (Bezet) 415 ms [facility] R [place] 14 degrees [facility] T [place] 52 degrees [facility] Ventricular Rate 105 BPM [facility] th Sinus tachycardia Possible Left atrial enlargement Low voltage QRS Cannot rule out Anteroseptal infarct , age undetermined Lateral injury pattern ACUTE CA / STEMI Abnormal ECG Confirmed by Kelsea WARREN, Torie ([id number]) on 01/27/2019 2:33:32 PM [facility] ECHOCARDIOGRAM LIMITED WITH CONTRASTon 01-27-2019 Interface, Rad In [employer] - 01/27/2019 8:22 AM EST [address] [address] [place] [address] ----- ECHOCARDIOGRAPHY REPORT - [facility] ----- Name: FERNANDO HELTON Age: 48 years Date: 01/27/2019 Hospital #: [id number] : 1970 Room: [address] [place] [address] #: [id number] Sex: M Tech: Giovana Hale Ordering Physician: [id number] KRISTIN MACHUCA Height: 66.00 in Sys BP: 92 WALKER cc: , Weight: 250.00 Mira BP: 48 Reading Physician: [id number] TORIE TERRELL Rhythm: Normal sinus AU/ rhythm Electronically Signed [id number] TORIE TERRELL BSA: 2.20 m by: AU [...] 75 Female) LA Index (BP) TAPSE LAESV PROCESS SPECIALIST NOTES: Limited subcostal views due to wound dressings. Definity (if used): 2ml Final IMPRESSION: Limited echo for repeat assessment of LV function [address] [address] [place] [address] ----- ECHOCARDIOGRAPHY REPORT - [facility] ----- Name: FERNANDO HELTON Age: 48 years Date: 01/27/2019 Hospital #: [id number] : 1970 Room: [address] [place] [address] #: [id number] Sex: M Tech: Giovana Hale Ordering Physician: [id number] KRISTIN MACHUCA Height: 66.00 in Sys BP: 92 WALKER cc: , Weight: 250.00 Mira BP: 48 Reading Physician: [id number] TORIE TERRELL Rhythm: Normal sinus KELSEA/ rhythm Electronically Signed [id number] TORIE TERRELL BSA: 2.20 m by: KELSEA [...] 75 Female) LA Index (BP) TAPSE LAESV PROCESS SPECIALIST NOTES: Limited subcostal views due to wound dressings. Definity (if used): 2ml Final [facility] Limited echo for rep eat assessment of LV function [facility] Hepatic Function Panelon Albumin [Mass/Vol] 2.6 g/dL Low 3.2 - 5.2 g/dL [facility] ALP [Catalytic activity/Vol] 41 U/L 40 - 150 U/L [facility] ALT [Catalytic activity/Vol] 35 U/L 14 - 65 U/L [facility] AST [Catalytic activity/Vol] 39 U/L 0 - 45 U/L [facility] Bilirubin [Mass/Vol] 0.8 mg/dL 0 - 1.3 mg/dL [facility] Bilirubin.conjugated [Mass/Vol] 0.2 mg/dL 0 - 0.4 mg/dL [facility] Protein [Mass/Vol] 6.1 g/dL 6 - 8 g/dL [facility] alth Lipaseon 01-27-2019 Lipase [Catalytic activity/Vol] 57 U/L Low 73 - 393 U/L [facility] Magnesium Levelon 01-27-2019 Interpretation and review of laboratory results Normal [facility] Magnesium [Mass/Vol] 2.4 mg/dL 1.6 - 2 .4 mg/dL [facility] Otheron 01-27-2019 Interpretation and review of laboratory results Abnormal [facility] POC Glucoseon 01-27-2019 Glucose [Mass/Vol] 113 mg/dL High 65 - 99 mg/dL [facility] Interpretation and review of laboratory results Abnormal [facility] Glucose [Mass/Vol] 111 mg/dL High 65 - 99 mg/dL [facility] Interpretation and review of laboratory results Abnormal [facility] Glucose [Mass/Vol] 117 mg/dL High 65 - 99 mg/dL [facility] Interpretation and review of laboratory results Abnormal [facility] TROPONINon 01-27-2019 Troponin I.cardiac [Mass/Vol] Normal [facility] Troponin I.cardiac [Mass/Vol] 28 ng/L <=45 [facility] XR ABDOMEN 1 VIEWon 01-28-20 19 [...] complication, without long-term current use of insulin ([facility]) I25.10 Coronary artery disease, angina presence unspecified, unspecified vessel or lesion type, unspecified whether [place] or transplanted heart COMPARISON: CT abdomen and pelvis 05/01/2015. FINDINGS: Two images were utilized to encompass the abdomen and pelvis. There is mild gaseous distention of the colon with gas extending into the rectum. No definite small bowel dilatation. No large collection of free intraperitoneal air. Postsurgical findings median sternotomy. IMPRESSION: Nonobstructive bowel gas pattern with mild colonic distention. [facility]/ Workstation ID: [id number] [facility] EXAMINATION: XR ABDO MEN /KUB/FLAT PLATE/1 VIEW 01/27/2019 7:56 am HISTORY: ORDERING SYSTEM PROVIDED HISTORY: ABD distension, TECHNOLOGIST PROVIDED HISTORY: Illness/Other Reason for exam: ABD distension Cancer History: u Surgery, RadiationHistory: yes Encounter Type: Initial Additional signs and symptoms: ABD [facility] ORDERING SYSTEM PROVIDED DIAGNOSIS CODES: R07.89 Chest pain, atypical E11.9 Type 2 diabetes mellitus without complication, without long-term current use of insulin ([facility]) I25.10 Coronary artery disease, angina presence unspecified, unspecified vessel or lesion type, unspecified whether [place] or transplanted heart COMPARISON: CT abdomen and pelvis 05/01/2015. FINDINGS: Two images were utilized to encompass the abdomen and pelvis. There is mild gaseous distention of the colon with gas extending into the rectum. No definite small bowel dilatation. No large collection of free intraperitoneal air. Postsurgical findings median sternotomy. [facility] Nonobstructive bowel gas pattern with mild colonic distention. [facility] Workstation ID: [id number] [facility] XR Chest 1 Viewon 01-27-2019 Status post sternoto my. Mild residual left apical and left base atelectatic findings. [facility]/kls Workstation ID: [id number] [facility] Interface, Rad In Fu ji Speechq [...] left apical and left base atelectatic findings. [facility] Workstation ID: [id number] [facility] EXAMINATION: XR CHES T PA/AP HISTORY: [...] No major consolidation or edema is seen. [facility] Basic Metabolic Panelon 01-12 Anion gap [Moles/Vol] 13 mmol/L 10 - 2 0 mmol/L [facility] Calcium [Mass/Vol] 8.3 mg/dL Low 8.4 - 10. 2 mg/dL [facility] Chloride [Moles/Vol] 102 mmol/L 98 - 10 8 mmol/L [facility] Creatinine [Mass/Vol] 1.03 mg/dL 0.5 - 1.3 mg/dL [facility] GFR/1.73 sq M.predicted CKD-EPI (S/P/Bld) [Vol rate/Area] 86 >=60 mL/min/1.7 3 m2 [facility] Glucose [Mass/Vol] 116 mg/dL High 65 - 99 mg/dL [facility] HCO3 [Moles/Vol] 24 mmol/L 21 - 32 mmol/L [facility] Interpretation and review of laboratory results Abnormal [facility] Potassium [Moles/Vol] 4.3 mmol/L 3.5 - 5.1 mmol/L [facility] Sodium [Moles/Vol] 135 mmol/L 135 - 145 mmol/L [facility] Urea nitrogen [Mass/Vol] 21 mg/dL 8 - 25 mg/dL [facility] Urea nitrogen/Creatinine [Mass ratio] 20.4 mg/mg High [facility] The eGFR should be u sed for monitoring renal function only and not for medication dosing. [facility] CBCon 01-26-2019 Erythrocyte distribution width (RBC) [Entitic vol] 14.1 % 11.6 - 14.8 % [facility] Hematocrit (Bld) [Volume fraction] 39.4 % Low 41 - 53 % [facility] Hemoglobin (Bld) [Mass/Vol] 13.0 g/dL Low 13.5 - 17.5 g/dL [facility] Interpretation and review of laboratory results Abnormal [facility] MCH (RBC) [Entitic mass] 27.8 pg 26 - 34 pg [facility] MCHC (RBC) [Mass/Vol] 33.0 g/dL 31 - 3 7 g/dL [facility] MCV (RBC) [Entitic vol] 84.4 fL 80 - 100 fL [facility] Nucleated RBC (Bld) [#/Vol] 0.00 10*3/uL [facility] Nucleated RBC/100 WBC (Bld) [Ratio] 0.0 % [facility] Platelet mean volume (Bld) [Entitic vol] 10.2 fL 9 - 15.5 fL [facility] Platelets (Bld) [#/Vol] 183 10*3/uL [facility] RBC (Bld) [#/Vol] 4.67 10*6/uL [facility] ealth WBC (Bld) [#/Vol] 14.20 10*3/uL [facility] Magnesium Levelon 01-26-2019 Interpretation and review of laboratory results Normal [facility] Magnesium [Mass/Vol] 2.2 mg/dL 1.6 - 2 .4 mg/dL [facility] POC Glucoseon 01-26-2019 Glucose [Mass/Vol] 128 mg/dL High 65 - 99 mg/dL [facility] Interpretation and review of laboratory results Abnormal [facility] Glucose [Mass/Vol] 112 mg/dL High 65 - 99 mg/dL [facility] Interpretation and review of laboratory results Abnormal [facility] Glucose [Mass/Vol] 111 mg/dL High 65 - 99 mg/dL [facility] Interpretation and review of laboratory results Abnormal [facility] Glucose [Mass/Vol] 117 mg/dL High 65 - 99 mg/dL [facility] Interpretation and review of laboratory results Abnormal [facility] Glucose [Mass/Vol] 110 mg/dL High 65 - 99 mg/dL [facility] Interpretation and review of laboratory results Abnormal [facility] Urine Aerobic Cultureon 01-12 Bacteria identified Aer cx Nom (Unsp spec) No Growth (<1,000 CFU/mL) [facility] XR Chest 1 Viewon 01-26-2019 Interface, [...] complication, without long-term current use of insulin ([facility]) I25.10 Coronary artery disease, angina presence unspecified, unspecified vessel or lesion type, unspecified whether [place] or transplanted heart COMPARISON: 01/26/2019 FINDINGS: One-view [...] pulmonary venous congestion. ST/hb Workstation ID: [id number] [facility] EXAMINATION: XR CHES T PA/AP HISTORY: [...] unspecified vessel or lesion type, unspecified whether [place] or transplanted heart COMPARISON: 01/26/2019 FINDINGS: One-view chest x-ray. Left basilar chest tube has been removed. Stable position of right central venous catheter. Low lung volumes. No pneumothorax. Mild pulmonary venous congestion. No pleural effusions. Left upper lobe subsegmental linear atelectasis. Prominent heart size. Postoperative changes of median sternotomy and CABG. Stable mediastinal contours. [facility] Interval left basila r chest tube removal. No pneumothorax. Recent CABG. Stable mediastinal contours. Mild pulmonary venous congestion. ST/hb Workstation ID: [id number] [facility] Interval removal of right jugular Winfield-Isaiah catheter. Sheath remains in place. No pneumothorax. Mild pulmonary venous congestion. Recent CABG postoperative changes. ST/dnb Workstation ID: [id number] [facility] Interface, Rad In Luis Fernando Garciaq [...] unspecified vessel or lesion type, unspecified whether [place] or transplanted heart COMPARISON: 01/25/2019. FINDINGS: One-view chest x-ray. Interval removal of right jugular Winfield-Isaiah catheter. Right jugular sheath remains in place and, tip projects over the superior vena cava. Stable position of left basilar chest tube. Low lung volumes. No pneumothorax. Mild pulmonary venous congestion. Left upper lobe subsegmental linear atelectasis. No significant pleural effusions. Cardiomegaly. Postoperative changes of median sternotomy and CABG. Improved prominence of the mediastinum. IMPRESSION: Interval removal of right jugular Winfield-Isaiah catheter. Sheath remains in place. No pneumothorax. Mild pulmonary venous congestion. Recent CABG postoperative changes. ST/dnb Workstation ID: [id number] [facility] EXAMINATION: XR CHES T PA/AP HISTORY: ORDERING SYSTEM PROVIDED HISTORY: post open heart surgery, TECHNOLOGIST PROVIDED HISTORY: Illness/Other Reason for exam: post cabg Cancer History: u Surgery, RadiationHistory: yes Encounter Type: Ongoing Additional signs and symptoms: . ORDERING SYSTEM PROVIDED DIAGNOSIS CODES: R07.89 Chest pain, atypical E11.9 Type 2 diabetes mellitus without complication, without long-term current use of insulin ([facility]) I25.10 Coronary artery disease, angina presence unspecified, unspecified vessel or lesion type, unspecified whether [place] or transplanted heart COMPARISON: 01/25/2019. FINDINGS: One-view chest x-ray. Interval removal of right jugular Winfield-Isaiah catheter. Right jugular sheath remains in place and, tip projects over the superior vena cava. Stable position of left basilar chest tube. Low lung volumes. No pneumothorax. Mild pulmonary venous congestion. Left upper lobe subsegmental linear atelectasis. No significant pleural effusions. Cardiomegaly. Postoperative changes of median sternotomy and CABG. Improved prominence of the mediastinum. [facility] Basic Metabolic Panelon 01-12 Anion gap [Moles/Vol] 13 mmol/L 10 - 2 0 mmol/L [facility] Calcium [Mass/Vol] 8.2 mg/dL Low 8.4 - 10. 2 mg/dL [facility] Chloride [Moles/Vol] 100 mmol/L 98 - 10 8 mmol/L [facility] Creatinine [Mass/Vol] 1.20 mg/dL 0.5 - 1.3 mg/dL [facility] GFR/1.73 sq M.predicted CKD-EPI (S/P/Bld) [Vol rate/Area] 72 >=60 mL/min/1.7 3 m2 [facility] Glucose [Mass/Vol] 141 mg/dL High 65 - 99 mg/dL [facility] HCO3 [Moles/Vol] 24 mmol/L 21 - 32 mmol/L [facility] Interpretation and review of laboratory results Abnormal [facility] Potassium [Moles/Vol] 4.5 mmol/L 3.5 - 5.1 mmol/L [facility] Sodium [Moles/Vol] 132 mmol/L Low 135 - 145 mmol/L [facility] Urea nitrogen [Mass/Vol] 22 mg/dL 8 - 25 mg/dL [facility] Urea nitrogen/Creatinine [Mass ratio] 18.3 mg/mg [facility] The eGFR should be u sed for monitoring renal function only and not for medication dosing. [facility] CBCon 01-25-2019 Erythrocyte distribution width (RBC) [Entitic vol] 14.0 % 11.6 - 14.8 % [facility] Hematocrit (Bld) [Volume fraction] 38.5 % Low 41 - 53 % [facility] Hemoglobin (Bld) [Mass/Vol] 12.9 g/dL Low 13.5 - 17.5 g/dL [facility] Interpretation and review of laboratory results Abnormal [facility] MCH (RBC) [Entitic mass] 28.0 pg 26 - 34 pg [facility] MCHC (RBC) [Mass/Vol] 33.5 g/dL 31 - 3 7 g/dL [facility] MCV (RBC) [Entitic vol] 83.5 fL 80 - 100 fL [facility] Nucleated RBC (Bld) [#/Vol] 0.00 10*3/uL [facility] Nucleated RBC/100 WBC (Bld) [Ratio] 0.0 % [facility] Platelet mean volume (Bld) [Entitic vol] 9.9 fL 9 - 15.5 fL [facility] Platelets (Bld) [#/Vol] 211 10*3/uL [facility] RBC (Bld) [#/Vol] 4.61 10*6/uL [facility] ealth WBC (Bld) [#/Vol] 15.83 10*3/uL [facility] Magnesium Levelon 01-25-2019 Interpretation and review of laboratory results Normal [facility] Magnesium [Mass/Vol] 2.0 mg/dL 1.6 - 2 .4 mg/dL [facility] POC ARTERIAL BLOOD GAS PANEL -PUL - [facility] 01-25-2019 Alveolar-arterial oxygen Partial pressure difference 41.2 mm Hg [facility] Base excess Calc (Bld) [Moles/Vol] 1.0 mmol/L [facility] Breath rate setting Ventilator synchronized intermittent mandatory 0 [facility] h CO2 (Bld) [Partial pressure] 36.3 mm[Hg] [facility] HCO3 (Bld) [Moles/Vol] 24.9 mmol/L 22 - 26 mmol/L [facility] Hematocrit (BldA) [Volume fraction] 44.2 % 41 - 53 % [facility] Hemoglobin (Bld) [Mass/Vol] 14.4 g/dL 13.5 - 18 g/dL [facility] Inhaled oxygen concentration 21 % [facility] Interpretation and review of laboratory results Abnormal [facility] Oxygen (Bld) [Partial pressure] 58 mm[Hg] Low [facility] pH (Bld) 7.44 [pH] [facility] Result Notification pt on room air [facility] SaO2% (BldA) [Mass fraction] 91.2 % Low 92 - 99 % [facility] Tidal volume setting Ventilator 0 [facility] POC Glucoseon 01-25-2019 Glucose [Mass/Vol] 125 mg/dL High 65 - 99 mg/dL [facility] Interpretation and review of laboratory results Abnormal [facility] Glucose [Mass/Vol] 109 mg/dL High 65 - 99 mg/dL [facility] Interpretation and review of laboratory results Abnormal [facility] Glucose [Mass/Vol] 129 mg/dL High 65 - 99 mg/dL [facility] Interpretation and review of laboratory results Abnormal [facility] Glucose [Mass/Vol] 119 mg/dL High 65 - 99 mg/dL [facility] Interpretation and review of laboratory results Abnormal [facility] Glucose [Mass/Vol] 117 mg/dL High 65 - 99 mg/dL [facility] Interpretation and review of laboratory results Abnormal [facility] Glucose [Mass/Vol] 127 mg/dL High 65 - 99 mg/dL [facility] Interpretation and review of laboratory results Abnormal [facility] Glucose [Mass/Vol] 132 mg/dL High 65 - 99 mg/dL [facility] Interpretation and review of laboratory results Abnormal [facility] Glucose [Mass/Vol] 140 mg/dL High 65 - 99 mg/dL [facility] Interpretation and review of laboratory results Abnormal [facility] Glucose [Mass/Vol] 129 mg/dL High 65 - 99 mg/dL [facility] Interpretation and review of laboratory results Abnormal [facility] XR Chest 1 Viewon 01-25-2019 EXAMINATION: [...] complication, without long-term current use of insulin ([facility]) I25.10 Coronary artery disease, angina presence unspecified, unspecified vessel or lesion type, unspecified whether [place] or transplanted heart COMPARISON: 01/24/2019 FINDINGS: Endotracheal tube and NG tube have been removed. Winfield-Isaiah catheter tip is in the right main pulmonary artery. Heart is mildly enlarged with a left ventricular contour. Vascularity is unremarkable. Right lung is unremarkable. There is been slight improvement in atelectasis in the left upper lobe. There is been interval development of a small amount of atelectasis versus early infiltrate in the left lung base. No pneumothorax is identified. [facility] Interface, Rad In Fu ji Speechq [...] unspecified vessel or lesion type, unspecified whether [place] or transplanted heart COMPARISON: 01/24/2019 FINDINGS: Endotracheal tube and NG tube have been removed. Winfield-Isaiah catheter tip is in the right main [...] and endotracheal tube have been removed. 2. Winfield-Isaiah catheter tip is in the right main pulmonary artery. 3. Improvement in the atelectasis in the left upper lobe. 4. Interval development of atelectasis versus early infiltrate in the left lung base. Workstation ID: [id number] [facility] 1. NG tube and endotracheal tube have been removed. 2. Winfield-Isaiah catheter tip is in the right main pulmonary artery. 3. Improvement in the atelectasis in the left upper lobe. 4. Interval development of atelectasis versus early infiltrate in the left lung base. Workstation ID: [id number] [facility] APTTon 01-24-2019 aPTT Coag (Bld) [Time] 28 s [facility] Therapeutic range fo r APTT's is 68 - 104 seconds [facility] aPTT Coag (Bld) [Time] [facility] range fo r APTT's is 68 - 104 seconds [facility] aPTT Coag (Bld) [Time] 59 s High [facility] Interpretation and review of laboratory results Abnormal [facility] Therapeutic range fo r APTT's is 68 - 104 seconds [facility] Basic Metabolic Panelon 01-12 Anion gap [Moles/Vol] 11 mmol/L 10 - 2 0 mmol/L [facility] Calcium [Mass/Vol] 8.6 mg/dL 8.4 - 10. 2 mg/dL [facility] Chloride [Moles/Vol] 100 mmol/L 98 - 10 8 mmol/L [facility] Creatinine [Mass/Vol] 1.25 mg/dL 0.5 - 1.3 mg/dL [facility] GFR/1.73 sq M.predicted CKD-EPI (S/P/Bld) [Vol rate/Area] 68 >=60 mL/min/1.7 3 m2 [facility] Glucose [Mass/Vol] 122 mg/dL High 65 - 99 mg/dL [facility] HCO3 [Moles/Vol] 25 mmol/L 21 - 32 mmol/L [facility] Interpretation and review of laboratory results Abnormal [facility] Potassium [Moles/Vol] 5.0 mmol/L 3.5 - 5.1 mmol/L [facility] Sodium [Moles/Vol] 131 mmol/L Low 135 - 145 mmol/L [facility] Urea nitrogen [Mass/Vol] 30 mg/dL High 8 - 25 mg/dL [facility] Urea nitrogen/Creatinine [Mass ratio] 24.0 mg/mg High [facility] The eGFR should be u sed for monitoring renal function only and not for medication dosing. [facility] Anion gap [Moles/Vol] 14 mmol/L 10 - 2 0 mmol/L [facility] Calcium [Mass/Vol] 8.2 mg/dL Low 8.4 - 10. 2 mg/dL [facility] Chloride [Moles/Vol] 100 mmol/L 98 - 10 8 mmol/L [facility] Creatinine [Mass/Vol] 1.31 mg/dL High 0.5 - 1.3 mg/dL [facility] GFR/1.73 sq M.predicted CKD-EPI (S/P/Bld) [Vol rate/Area] 64 >=60 mL/min/1.7 3 m2 [facility] Glucose [Mass/Vol] 130 mg/dL High 65 - 99 mg/dL [facility] HCO3 [Moles/Vol] 24 mmol/L 21 - 32 mmol/L [facility] Interpretation and review of laboratory results Abnormal [facility] Potassium [Moles/Vol] 3.7 mmol/L 3.5 - 5.1 mmol/L [facility] Sodium [Moles/Vol] 134 mmol/L Low 135 - 145 mmol/L [facility] Urea nitrogen [Mass/Vol] 26 mg/dL High 8 - 25 mg/dL [facility] Urea nitrogen/Creatinine [Mass ratio] 19.8 mg/mg [facility] The eGFR should be u sed for monitoring renal function only and not for medication dosing. [facility] Anion gap [Moles/Vol] 13 mmol/L 10 - 2 0 mmol/L [facility] Calcium [Mass/Vol] 9.0 mg/dL 8.4 - 10. 2 mg/dL [facility] Chloride [Moles/Vol] 98 mmol/L 98 - 10 8 mmol/L [facility] Creatinine [Mass/Vol] 1.19 mg/dL 0.5 - 1.3 mg/dL [facility] GFR/1.73 sq M.predicted CKD-EPI (S/P/Bld) [Vol rate/Area] 72 >=60 mL/min/1.7 3 m2 [facility] Glucose [Mass/Vol] 148 mg/dL High 65 - 99 mg/dL [facility] HCO3 [Moles/Vol] 27 mmol/L 21 - 32 mmol/L [facility] Interpretation and review of laboratory results Abnormal [facility] Potassium [Moles/Vol] 3.6 mmol/L 3.5 - 5.1 mmol/L [facility] Sodium [Moles/Vol] 134 mmol/L Low 135 - 145 mmol/L [facility] Urea nitrogen [Mass/Vol] 26 mg/dL High 8 - 25 mg/dL [facility] Urea nitrogen/Creatinine [Mass ratio] 21.8 mg/mg High [facility] The eGFR should be u sed for monitoring renal function only and not for medication dosing. [facility] CBCon 01-24-2019 Erythrocyte distribution width (RBC) [Entitic vol] 13.7 % 11.6 - 14.8 % [facility] Hematocrit (Bld) [Volume fraction] 36.8 % Low 41 - 53 % [facility] Hemoglobin (Bld) [Mass/Vol] 12.4 g/dL Low 13.5 - 17.5 g/dL [facility] Interpretation and review of laboratory results Abnormal [facility] MCH (RBC) [Entitic mass] 27.9 pg 26 - 34 pg [facility] MCHC (RBC) [Mass/Vol] 33.7 g/dL 31 - 3 7 g/dL [facility] MCV (RBC) [Entitic vol] 82.9 fL 80 - 100 fL [facility] Nucleated RBC (Bld) [#/Vol] 0.00 10*3/uL [facility] Nucleated RBC/100 WBC (Bld) [Ratio] 0.0 % [facility] Platelet mean volume (Bld) [Entitic vol] 10.1 fL 9 - 15.5 fL [facility] Platelets (Bld) [#/Vol] 203 10*3/uL [facility] RBC (Bld) [#/Vol] 4.44 10*6/uL Low [facility] eah WBC (Bld) [#/Vol] 12.07 10*3/uL High [facility] CBC WITH AUTO DIFFERENTIALon 01-24-2019 Basophils (Bld) [#/Vol] 0.05 10*3/uL [facility] Basophils/100 WBC (Bld) 0.3 % [facility] E[facility] ([facility]ld[facility] [#/Vol] 0.11 10*3/uL [facility] Eosinophils/100 WBC (Bld) 0.7 % [facility] Erythrocyte distribution width (RBC) [Entitic vol] 13.9 % 11.6 - 14.8 % [facility] Hematocrit (Bld) [Volume fraction] 37.5 % Low 41 - 53 % [facility] Hemoglobin (Bld) [Mass/Vol] 12.5 g/dL Low 13.5 - 17.5 g/dL [facility] Immature granulocytes (Bld) [#/Vol] 0.16 10*3/uL [facility] Immature granulocytes/100 WBC (Bld) 1.00 % [facility] Comment on above: The IG parameter is the percentage of metamyelocytes, myelocytes, and promyelocytes. Interpretation and review of laboratory results Abnormal [facility] Lymphocytes (Bld) [#/Vol] 1.58 10*3/uL [facility] Lymphocytes/100 WBC (Bld) 9.7 % [facility] MCH (RBC) [Entitic mass] 28.0 pg 26 - 34 pg [facility] MCHC (RBC) [Mass/Vol] 33.3 g/dL 31 - 3 7 g/dL [facility] MCV (RBC) [Entitic vol] 84.1 fL 80 - 100 fL [facility] Monocytes (Bld) [#/Vol] 1.47 10*3/uL High [facility] Monocytes/100 WBC (Bld) 9.1 % [facility] Neutrophils (Bld) [#/Vol] 12.85 10*3/uL High [facility] Neutrophils/100 WBC (Bld) 79.2 % [facility] Nucleated RBC (Bld) [#/Vol] 0.00 10*3/uL [facility] Nucleated RBC/100 WBC (Bld) [Ratio] 0.0 % [facility] Platelet mean volume (Bld) [Entitic vol] 10.1 fL 9 - 15.5 fL [facility] Platelets (Bld) [#/Vol] 227 10*3/uL [facility] RBC (Bld) [#/Vol] 4.46 10*6/uL Low [facility]alth WBC (Bld) [#/Vol] 16.22 10*3/uL High [facility] Basophils (Bld) [#/Vol] 0.07 10*3/uL [facility] Basophils/100 WBC (Bld) 0.5 % [facility] Eosinophils (Bld) [#/Vol] 0.61 10*3/uL High [facility] Eosinophils/100 WBC (Bld) 4.0 % [facility] Erythrocyte distribution width (RBC) [Entitic vol] 13.8 % 11.6 - 14.8 % [facility] Hematocrit (Bld) [Volume fraction] 36.5 % Low 41 - 53 % [facility] Hemoglobin (Bld) [Mass/Vol] 12.2 g/dL Low 13.5 - 17.5 g/dL [facility] Immature granulocytes (Bld) [#/Vol] 0.22 10*3/uL [facility] Immature granulocytes/100 WBC (Bld) 1.40 % [facility] Comment on above: The IG parameter is the percentage of metamyelocytes, myelocytes, and promyelocytes. Interpretation and review of laboratory results Abnormal [facility] Lymphocytes (Bld) [#/Vol] 2.53 10*3/uL [facility] Lymphocytes/100 WBC (Bld) 16.6 % [facility] MCH (RBC) [Entitic mass] 27.9 pg 26 - 34 pg [facility] MCHC (RBC) [Mass/Vol] 33.4 g/dL 31 - 3 7 g/dL [facility] MCV (RBC) [Entitic vol] 83.3 fL 80 - 100 fL [facility] Monocytes (Bld) [#/Vol] 1.19 10*3/uL High [facility] Monocytes/100 WBC (Bld) 7.8 % [facility] Neutrophils (Bld) [#/Vol] 10.66 10*3/uL High [facility] Neutrophils/100 WBC (Bld) 69.7 % [facility] Nucleated RBC (Bld) [#/Vol] 0.00 10*3/uL [facility] Nucleated RBC/100 WBC (Bld) [Ratio] 0.0 % [facility] Platelet mean volume (Bld) [Entitic vol] 10.1 fL 9 - 15.5 fL [facility] Platelets (Bld) [#/Vol] 201 10*3/uL [facility] RBC (Bld) [#/Vol] 4.38 10*6/uL Low [facility]ah WBC (Bld) [#/Vol] 15.28 10*3/uL High [facility] Basophils (Bld) [#/Vol] 0.06 10*3/uL [facility] Basophils/100 WBC (Bld) 0.5 % [facility] Eosinophils (Bld) [#/Vol] 0.74 10*3/uL High [facility] Eosinophils/100 WBC (Bld) 6.8 % [facility] Erythrocyte distribution width (RBC) [Entitic vol] 13.8 % 11.6 - 14.8 % [facility] Hematocrit (Bld) [Volume fraction] 42.3 % 41 - 53 % [facility] Hemoglobin (Bld) [Mass/Vol] 14.0 g/dL 13.5 - 17.5 g/dL [facility] Immature granulocytes (Bld) [#/Vol] 0.12 10*3/uL [facility] Immature granulocytes/100 WBC (Bld) 1.10 % [facility] Comment on above: The IG parameter is the percentage of metamyelocytes, myelocytes, and promyelocytes. Interpretation and review of laboratory results Abnormal [facility] Lymphocytes (Bld) [#/Vol] 3.01 10*3/uL [facility] Lymphocytes/100 WBC (Bld) 27.6 % [facility] MCH (RBC) [Entitic mass] 27.7 pg 26 - 34 pg [facility] MCHC (RBC) [Mass/Vol] 33.1 g/dL 31 - 3 7 g/dL [facility] MCV (RBC) [Entitic vol] 83.6 fL 80 - 100 fL [facility] Monocytes (Bld) [#/Vol] 0.95 10*3/uL High [facility] Monocytes/100 WBC (Bld) 8.7 % [facility] Neutrophils (Bld) [#/Vol] 6.04 10*3/uL [facility] Neutrophils/100 WBC (Bld) 55.3 % [facility] Nucleated RBC (Bld) [#/Vol] 0.00 10*3/uL [facility] Nucleated RBC/100 WBC (Bld) [Ratio] 0.0 % [facility] Platelet mean volume (Bld) [Entitic vol] 10.1 fL 9 - 15.5 fL [facility] Platelets (Bld) [#/Vol] 230 10*3/uL [facility] RBC (Bld) [#/Vol] 5.06 10*6/uL [facility] WBC (Bld) [#/Vol] 10.92 10*3/uL [facility] Calcium, Ionizedon 9 Calcium.ionized [Mass/Vol] 4.6 mg/dL 4.5 - 5.3 mg/dL [facility] Interpretation and review of laboratory results Normal [facility] Calcium.ionized [Mass/Vol] 4.5 mg/dL 4.5 - 5.3 mg/dL [facility] Interpretation and review of laboratory results Normal [facility] Fibrinogenon 01-24-2019 Fibrinogen Coag (PPP) [Mass/Vol] 309 mg/dL 224 - 483 mg/dL [facility] Fibrinogen Coag (PPP) [Mass/Vol] 316 mg/dL 224 - 483 mg/dL [facility] Hematologyon 01-24-2019 pH (Bld) 7.44 [pH] [facility] ABO and Rh group Nom (Bld) O Neg [facility] ABO and Rh group Nom (Bld) 9500 [facility] Magnesium Levelon 01-24-2019 Interpretation and review of laboratory results Normal [facility] Magnesium [Mass/Vol] 2.0 mg/dL 1.6 - 2 .4 mg/dL [facility] Interpretation and review of laboratory results Normal [facility] Magnesium [Mass/Vol] 2.0 mg/dL 1.6 - 2 .4 mg/dL [facility] Metabolic Panelon 01-24-2019 Potassium [Moles/Vol] 3.8 mmol/L 3.5 - 5.1 mmol/L [facility] Otheron 01-24-2019 Interpretation and review of laboratory results Abnormal [facility] Interpretation and review of laboratory results Normal [facility] Interpretation and review of laboratory results Normal [facility] Interpretation and review of laboratory results Abnormal [facility] SaO2% (BldA) [Mass fraction] 100.0 % High 92 - 99 % [facility] Cross Match Compatible [facility] Product Code [id number] [facility] Product Code [id number] [facility] Product ID Red Blood Cells [facility] Status Info Released [facility] POC ABG SURG - RALSon 2018 Base Excess, Arterial 4 High [facility] Base Excess, Arterial 1 [facility] Base Excess, Arterial 3 High [facility] Calcium.ionized (Bld) [Mass/Vol] 4.7 mg/dL 4.5 - 5.3 mg/dL [facility] Calcium.ionized (Bld) [Mass/Vol] 4.9 mg/dL 4.5 - 5.3 mg/dL [facility] Calcium.ionized (Bld) [Mass/Vol] 4.6 mg/dL 4.5 - 5.3 mg/dL [facility] CO2 (Bld) [Partial pressure] 38.1 mm[Hg] [facility] CO2 (Bld) [Partial pressure] 53.2 mm[Hg] High [facility] CO2 (Bld) [Partial pressure] 40.5 mm[Hg] [facility] Glucose [Mass/Vol] 168 mg/dL High 65 - 99 mg/dL [facility] Glucose [Mass/Vol] 131 mg/dL High 65 - 99 mg/dL [facility] Glucose [Mass/Vol] 169 mg/dL High 65 - 99 mg/dL [facility] HCO3 (Bld) [Moles/Vol] 25.7 mmol/L 22 - 26 mmol/L [facility] HCO3 (Bld) [Moles/Vol] 27.3 mmol/L High 22 - 26 mmol/L [facility] HCO3 (Bld) [Moles/Vol] 30.4 mmol/L High 22 - 26 mmol/L [facility] Hematocrit (Bld) [Volume fraction] 39 % Low 41 - 53 % [facility] Hematocrit (Bld) [Volume fraction] 37 % Low 41 - 53 % [facility] Hematocrit (Bld) [Volume fraction] 40 % Low 41 - 53 % [facility] Hemoglobin (Bld) [Mass/Vol] 13.6 g/dL 13.5 - 17.5 g/dL [facility] Hemoglobin (Bld) [Mass/Vol] 12.6 g/dL Low 13.5 - 17.5 g/dL [facility] Hemoglobin (Bld) [Mass/Vol] 13.3 g/dL Low 13.5 - 17.5 g/dL [facility] Oxygen (Bld) [Partial pressure] 364 mm[Hg] High [facility] Oxygen (Bld) [Partial pressure] 432 mm[Hg] High [facility] Oxygen (Bld) [Partial pressure] 344 mm[Hg] High [facility] pH (Bld) 7.37 [pH] [facility] Sodium [Moles/Vol] 132 mmol/L Low 135 - 145 mmol/L [facility] Sodium [Moles/Vol] 134 mmol/L Low 135 - 145 mmol/L [facility] Sodium [Moles/Vol] 131 mmol/L Low 135 - 145 mmol/L [facility] POC ARTERIAL BLOOD GAS PANEL [facility] 01-24-2019 Alveolar-arterial oxygen Partial pressure difference 89.1 mm Hg [facility] Base excess Calc (Bld) [Moles/Vol] 1.1 mmol/L [facility] Breath rate setting Ventilator synchronized intermittent mandatory 0 [facility] h CO2 (Bld) [Partial pressure] 45.4 mm[Hg] High [facility] HCO3 (Bld) [Moles/Vol] 26.7 mmol/L High 22 - 26 mmol/L [facility] Hematocrit (BldA) [Volume fraction] 39.6 % Low 41 - 53 % [facility] Hemoglobin (Bld) [Mass/Vol] 12.9 g/dL Low 13.5 - 18 g/dL [facility] Inhaled oxygen concentration 40 % [facility] Interpretation and review of laboratory results Abnormal [facility] Oxygen (Bld) [Partial pressure] 132 mm[Hg] High [facility] PEEP Respiratory system 5 [facility] pH (Bld) 7.38 [pH] [facility] SaO2% (BldA) [Mass fraction] 98.7 % 92 - 99 % [facility] Tidal volume setting Ventilator 0 [facility] Alveolar-arterial oxygen Partial pressure difference 127.3 mm Hg [facility] Base excess Calc (Bld) [Moles/Vol] 1.0 mmol/L [facility] Breath rate setting Ventilator synchronized intermittent mandatory 0 [facility] h CO2 (Bld) [Partial pressure] 41.7 mm[Hg] [facility] HCO3 (Bld) [Moles/Vol] 26.0 mmol/L 22 - 26 mmol/L [facility] Hematocrit (BldA) [Volume fraction] 38.5 % Low 41 - 53 % [facility] Hemoglobin (Bld) [Mass/Vol] 12.5 g/dL Low 13.5 - 18 g/dL [facility] Inhaled oxygen concentration 40 % [facility] Interpretation and review of laboratory results Abnormal [facility] Oxygen (Bld) [Partial pressure] 98 mm[Hg] [facility] PEEP Respiratory system 5 [facility] pH (Bld) 7.40 [pH] [facility] SaO2% (BldA) [Mass fraction] 97.7 % 92 - 99 % [facility] Tidal volume setting Ventilator 800 [facility] Alveolar-arterial oxygen Partial pressure difference 307.3 mm Hg [facility] Base excess Calc (Bld) [Moles/Vol] 2.0 mmol/L [facility] Breath rate setting Ventilator synchronized intermittent mandatory 0 [facility] CO2 (Bld) [Partial pressure] 39.5 mm[Hg] [facility] HCO3 (Bld) [Moles/Vol] 26.4 mmol/L High 22 - 26 mmol/L [facility] Hematocrit (BldA) [Volume fraction] 39.5 % Low 41 - 53 % [facility] Hemoglobin (Bld) [Mass/Vol] 12.9 g/dL Low 13.5 - 18 g/dL [facility] Inhaled oxygen concentration 70 % [facility] Interpretation and review of laboratory results Abnormal [facility] Oxygen (Bld) [Partial pressure] 126 mm[Hg] High [facility] PEEP Respiratory system 5 [facility] pH (Bld) 7.43 [pH] [facility] SaO2% (BldA) [Mass fraction] 98.7 % 92 - 99 % [facility] Specimen source Nom (Unsp spec) Not specified [facility] Tidal volume setting Ventilator 800 [facility] POC Glucoseon 01-24-2019 Glucose [Mass/Vol] 120 mg/dL High 65 - 99 mg/dL [facility] Interpretation and review of laboratory results Abnormal [facility] Glucose [Mass/Vol] 132 mg/dL High 65 - 99 mg/dL [facility] Glucose [Mass/Vol] 119 mg/dL High 65 - 99 mg/dL [facility] Glucose [Mass/Vol] 122 mg/dL High 65 - 99 mg/dL [facility] Interpretation and review of laboratory results Abnormal [facility] Glucose [Mass/Vol] 134 mg/dL High 65 - 99 mg/dL [facility] Interpretation and review of laboratory results Abnormal [facility] Glucose [Mass/Vol] 131 mg/dL High 65 - 99 mg/dL [facility] Interpretation and review of laboratory results Abnormal [facility] Glucose [Mass/Vol] 114 mg/dL High 65 - 99 mg/dL [facility] Glucose [Mass/Vol] 121 mg/dL High 65 - 99 mg/dL [facility] Interpretation and review of laboratory results Abnormal [facility] Glucose [Mass/Vol] 137 mg/dL High 65 - 99 mg/dL [facility] Interpretation and review of laboratory results Abnormal [facility] Glucose [Mass/Vol] 149 mg/dL High 65 - 99 mg/dL [facility] Interpretation and review of laboratory results Abnormal [facility] Glucose [Mass/Vol] 169 mg/dL High 65 - 99 mg/dL [facility] Interpretation and review of laboratory results Abnormal [facility] Glucose [Mass/Vol] 108 mg/dL High 65 - 99 mg/dL [facility] Interpretation and review of laboratory results Abnormal [facility] PREPARE RBCon 01-24-2019 Product Code [id number] [facility] Unit Number [id number] [facility] Unit Number [id number] [facility] Unit Number [id number] [facility] Unit Number [id number] [facility] Unit Number [id number] [facility] Unit Number [id number] [facility] PT/INRon 01-24-2019 INR Coag (PPP) [Relative time] 1.0 {INR} [facility] Interpretation and review of laboratory results Normal [facility] PT Coag (PPP) [Time] 13.3 s [facility] During the induction phase of oral anticoagulation, the INR may not reflect the anticoagulation status of the patient. Therapeutic ranges for INR's are: Most clinical situations: INR 2.0-3.0 Mechanical Prosthetic Valve: INR 2.5-3.5 Critical: INR >5.0 [facility] INR Coag (PPP) [Relative time] 1.1 {INR} [facility] PT Coag (PPP) [Time] 13.5 s [facility] During the induction phase of oral anticoagulation, the INR may not reflect the anticoagulation status of the patient. Therapeutic ranges for INR's are: Most clinical situations: INR 2.0-3.0 Mechanical Prosthetic Valve: INR 2.5-3.5 Critical: INR >5.0 [facility] INR Coag (PPP) [Relative time] 1.1 {INR} [facility] PT Coag (PPP) [Time] 13.4 s [facility] During the induction phase of oral anticoagulation, the INR may not reflect the anticoagulation status of the patient. Therapeutic ranges for INR's are: Most clinical situations: INR 2.0-3.0 Mechanical Prosthetic Valve: INR 2.5-3.5 Critical: INR >5.0 [facility] Type and Screenon 01-24-2019 ABO and Rh group Nom (Bld) O Negative [facility] Blood group antibody screen Ql Negative [facility] Specimen Expires 01/27/2019 23:59 EST [facility] XR Chest 1 Viewon 01-24-2019 1. No acute cardiopulmonary disease. 2. Normal heart size with evidence of prior coronary arterial stenting. 3. No acute osseous abnormality. [employer] Workstation ID: [id number] [facility] Interface, Rad In Fu ji Speechq - 01/24/2019 5:04 PM EST EXAMINATION: 1 VIEW XR CHEST PA/AP, 01/24/2019 COMPARISON: Chest, 01/21/2019. HISTORY: Dx: R07.89 (Chest pain, atypical) Injury/Trauma or Illness?:Illness/Other How long have you had these symptoms (acute/chronic)?:Unknown pre-op IMPRESSION: 1. No acute cardiopulmonary disease. 2. Normal heart size with evidence of prior coronary arterial stenting. 3. No acute osseous abnormality. [employer] Workstation ID: [id number] [facility] EXAMINATION: 1 VIEW XR CHEST PA/AP, 01/24/2019 COMPARISON: Chest, 01/21/2019. HISTORY: Dx: R07.89 (Chest pain, atypical) Injury/Trauma or Illness?:Illness/Other How long have you had these symptoms (acute/chronic)?:Unknown pre-op [facility] 1. There is a right mainstem intubation that has been appropriately retracted on follow-up chest radiograph performed just following this exam. 2. Nasogastric tube is seen descending into the stomach although the tip is not included for visualization. Central mediastinal or left chest tube is in place. 3. Right internal jugular Winfield-Isaiah line in place with tip in the main pulmonary artery. 4. Lung volumes are slightly diminished with some crowding of bronchopulmonary vasculature. Some discoid atelectasis in the left upper lobe suspected. 5. Stable heart size with evidence of coronary arterial stenting in CABG. [facility]/lab Workstation ID: [id number] [facility] Interface, Rad In Luis Fernando yi [...] is in place. 3. Right internal jugular Winfield-Isaiah line in place with tip in the main pulmonary artery. 4. Lung volumes are slightly diminished with some crowding of bronchopulmonary vasculature. Some discoid atelectasis in the left upper lobe suspected. 5. Stable heart size with evidence of coronary arterial stenting in CABG. [facility]/lab Workstation ID: [id number] [facility] EXAMINATION: 1-VIEW XR CHEST PA/AP 01/24/2019 AT 10:13 AM COMPARISON: Chest radiograph performed later in the day at 10:20 a.m. HISTORY: Dx: R07.89 (Chest pain, atypical). Injury/Trauma or Illness?: Illness/Other. How long have you had these symptoms (acute/chronic)?: Unknown. ET tube placement. [facility] EXAMINATION: 1 VIEW XR CHEST PA/AP, 01/24/2019 AT 10:20 A.M. COMPARISON: Chest radiograph performed earlier the same day at 10:13 a.m. HISTORY: Dx: R07.89 (Chest pain, atypical) Injury/Trauma or Illness?:Illness/Other How long have you had these symptoms (acute/chronic)?:Unknown reposition OG [facility] 1. Endotracheal tube has been retracted and is probably located at the level of thoracic inlet. 2. Orogastric tube is again seen extending into the stomach although the tip is not included for visualization. Central mediastinal or left chest tube and right internal jugular Winfield-Isaiah line remain in stable position. 3. Lung volumes is slightly diminished with some discoid atelectasis slightly progressed in the left lung apex since the prior exam. No pneumothorax. 4. Stable heart size with evidence of coronary arterial stenting and new CABG. GJT/trn Workstation ID: [id number] [facility] Interface, Rad In Luis Fernando yi [...] left chest tube and right internal jugular Winfield-Isaiah line remain in stable position. 3. Lung volumes is slightly diminished with some discoid atelectasis slightly progressed in the left lung apex since the prior exam. No pneumothorax. 4. Stable heart size with evidence of coronary arterial stenting and new CABG. [facility]eT/trn Workstation ID: [id number] [facility] APTTon 01-23-2019 aPTT Coag (Bld) [Time] 79 s High [facility] Interpretation and review of laboratory results Abnormal [facility] Therapeutic range fo r APTT's is 68 - 104 seconds [facility] Basic Metabolic Panelon 01-12 Anion gap [Moles/Vol] 11 mmol/L 10 - 2 0 mmol/L [facility] Calcium [Mass/Vol] 9.3 mg/dL 8.4 - 10. 2 mg/dL [facility] Chloride [Moles/Vol] 99 mmol/L 98 - 10 8 mmol/L [facility] Creatinine [Mass/Vol] 1.22 mg/dL 0.5 - 1.3 mg/dL [facility] GFR/1.73 sq M.predicted CKD-EPI (S/P/Bld) [Vol rate/Area] 70 >=60 mL/min/1.7 3 m2 [facility] Glucose [Mass/Vol] 124 mg/dL High 65 - 99 mg/dL [facility] HCO3 [Moles/Vol] 27 mmol/L 21 - 32 mmol/L [facility] Interpretation and review of laboratory results Abnormal [facility] Potassium [Moles/Vol] 4.0 mmol/L 3.5 - 5.1 mmol/L [facility] Sodium [Moles/Vol] 133 mmol/L Low 135 - 145 mmol/L [facility] Urea nitrogen [Mass/Vol] 25 mg/dL 8 - 25 mg/dL [facility] Urea nitrogen/Creatinine [Mass ratio] 20.5 mg/mg High [facility] The eGFR should be u sed for monitoring renal function only and not for medication dosing. [facility] CBC WITH AUTO DIFFERENTIALon 01-23-2019 Basophils (Bld) [#/Vol] 0.08 10*3/uL [facility] Basophils/100 WBC (Bld) 0.7 % [facility] Eosinophils (Bld) [#/Vol] 0.80 10*3/uL High [facility] Eosinophils/100 WBC (Bld) 6.6 % [facility] Erythrocyte distribution width (RBC) [Entitic vol] 14.1 % 11.6 - 14.8 % [facility] Hematocrit (Bld) [Volume fraction] 42.4 % 41 - 53 % [facility] Hemoglobin (Bld) [Mass/Vol] 14.3 g/dL 13.5 - 17.5 g/dL [facility] Immature granulocytes (Bld) [#/Vol] 0.16 10*3/uL [facility] Immature granulocytes/100 WBC (Bld) 1.30 % [facility] Comment on above: The IG parameter is the percentage of metamyelocytes, myelocytes, and promyelocytes. Interpretation and review of laboratory results Abnormal [facility] Lymphocytes (Bld) [#/Vol] 3.27 10*3/uL [facility] Lymphocytes/100 WBC (Bld) 26.9 % [facility] MCH (RBC) [Entitic mass] 28.4 pg 26 - 34 pg [facility] MCHC (RBC) [Mass/Vol] 33.7 g/dL 31 - 3 7 g/dL [facility] MCV (RBC) [Entitic vol] 84.1 fL 80 - 100 fL [facility] Monocytes (Bld) [#/Vol] 1.03 10*3/uL High [facility] Monocytes/100 WBC (Bld) 8.5 % [facility] Neutrophils (Bld) [#/Vol] 6.83 10*3/uL [facility] Neutrophils/100 WBC (Bld) 56.0 % [facility] Nucleated RBC (Bld) [#/Vol] 0.00 10*3/uL [facility] Nucleated RBC/100 WBC (Bld) [Ratio] 0.0 % [facility] Platelet mean volume (Bld) [Entitic vol] 10.3 fL 9 - 15.5 fL [facility] Platelets (Bld) [#/Vol] 239 10*3/uL [facility] RBC (Bld) [#/Vol] 5.04 10*6/uL [facility] WBC (Bld) [#/Vol] 12.17 10*3/uL [facility] Complete PFT Dr. Javi high 01-23-2019 DLCO %Pre Predicted 71 % [facility] DLCO Pre 21.5 mL/mmHg/mi n [facility] DLCO Predicted 30.1 mL/mmHg/mi n [facility] DLCO/VA %Pre Predicted 103 % [facility] DLCO/VA Pre 4.09 mL/mmHg/mi n/L [facility] DLCO/VA Predicted 3.97 mL/mmHg/mi n/L [facility] ERV Pre 0.71 Liters [facility] FEV1 %Change 3 % [facility] FEV1 %Post Predicted 81 % [facility] FEV1 %Pre Predicted 79 % [facility] FEV1 Post 2.88 Liters [facility] FEV1 Pre 2.80 Liters [facility] FEV1 Predicted 3.54 Liters [facility] FEV1/FVC %Change 3 % [facility] FEV1/FVC %Post Predicted 90 % [facility] FEV1/FVC %Pre Predicted 87 % [facility] FEV1/FVC Post 70 % [facility] FEV1/FVC Pre 68 % [facility] FEV1/FVC Predicted 78 % [facility] al[facility] FRC PL %Pre Predicted 125 % [facility] FRC PL Pre 3.11 Liters [facility] FRC PL Predicted 2.49 Liters [facility] FVC %Change 0 % [facility] FVC %Post Predicted 91 % [facility] FVC %Pre Predicted 91 % [facility] FVC Post 4.11 Liters [facility] FVC Pre 4.10 Liters [facility] FVC Predicted 4.50 Liters [facility] RV %Pre Predicted 128 % [facility] lt RV Pre 2.41 Liters [facility] RV Predicted 1.88 Liters [facility] TLC %Pre Predicted 112 % [facility] TLC Pre 6.58 Liters [facility] TLC Predicted 5.90 Liters [facility] VC %Pre Predicted 93 % [facility] VC Pre 4.17 Liters [facility] VC Predicted 4.50 Liters [facility] INTERPRETATION: ATS Guidelines met. Good patient effort. Spirometry shows borderline/very mild obstruction that appears fixed. Lung volumes are normal. Diffusion capacity uncorrected for hemoglobin is mildly reduced, but does correct when alveolar volumes accounted for. Early/very mild COPD. [facility] POC Glucoseon 01-23-2019 Glucose [Mass/Vol] 163 mg/dL High 65 - 99 mg/dL [facility] Interpretation and review of laboratory results Abnormal [facility] Glucose [Mass/Vol] 110 mg/dL High 65 - 99 mg/dL [facility] Interpretation and review of laboratory results Abnormal [facility] Glucose [Mass/Vol] 106 mg/dL High 65 - 99 mg/dL [facility] Interpretation and review of laboratory results Abnormal [facility] Upper Respiratory Aerobic Cu ltureon 01-23-2019 Bacteria identified Aer cx Nom (Nose) Light Growth Staphylococcus aureus Abnormal [facility] Comment on above: This Staphylococcus aureus is Methicillin SUSCEPTIBLE by PBP2a testing. Beta-lactams like Cefazolin and Nafcillin are superior to Vancomycin for treating mSsa. Interpretation and review of laboratory results Abnormal [facility] Urine Aerobic Cultureon 01-12 Bacteria identified Aer cx Nom (Unsp spec) 10,000-49,000 CFU/mL Staphylococcus aureus Abnormal [facility] Interpretation and review of laboratory results Abnormal [facility] APTTon 01-22-2019 aPTT Coag (Bld) [Time] [address] [facility] Therapeutic range fo r APTT's is 68 - 104 seconds [facility] aPTT Coag (Bld) [Time] [address] [facility] Interpretation and review of laboratory results Abnormal [facility] Therapeutic range fo r APTT's is 68 - 104 seconds [facility] aPTT Coag (Bld) [Time] [address] [facility] Interpretation and review of laboratory results Abnormal [facility] Therapeutic range fo r APTT's is 68 - 104 seconds [facility] Basic Metabolic Panelon 01-12 Anion gap [Moles/Vol] 12 mmol/L 10 - 2 0 mmol/L [facility] Calcium [Mass/Vol] 8.9 mg/dL 8.4 - 10. 2 mg/dL [facility] Chloride [Moles/Vol] 102 mmol/L 98 - 10 8 mmol/L [facility] Creatinine [Mass/Vol] 1.23 mg/dL 0.5 - 1.3 mg/dL [facility] GFR/1.73 sq M.predicted CKD-EPI (S/P/Bld) [Vol rate/Area] 69 >=60 mL/min/1.7 3 m2 [facility] Glucose [Mass/Vol] 125 mg/dL High 65 - 99 mg/dL [facility] HCO3 [Moles/Vol] 25 mmol/L 21 - 32 mmol/L [facility] Interpretation and review of laboratory results Abnormal [facility] Potassium [Moles/Vol] 3.9 mmol/L 3.5 - 5.1 mmol/L [facility] Sodium [Moles/Vol] 135 mmol/L 135 - 145 mmol/L [facility] Urea nitrogen [Mass/Vol] 26 mg/dL High 8 - 25 mg/dL [facility] Urea nitrogen/Creatinine [Mass ratio] 21.1 mg/mg High [facility] The eGFR should be u sed for monitoring renal function only and not for medication dosing. [facility] CBC WITH AUTO DIFFERENTIALon 01-22-2019 Basophils (Bld) [#/Vol] 0.08 10*3/uL [facility] Basophils/100 WBC (Bld) 0.7 % [facility] Eosinophils (Bld) [#/Vol] 0.74 10*3/uL High [facility] Eosinophils/100 WBC (Bld) 6.5 % [facility] Erythrocyte distribution width (RBC) [Entitic vol] 14.0 % 11.6 - 14.8 % [facility] Hematocrit (Bld) [Volume fraction] 41.8 % 41 - 53 % [facility] Hemoglobin (Bld) [Mass/Vol] 13.5 g/dL 13.5 - 17.5 g/dL [facility] Immature granulocytes (Bld) [#/Vol] 0.15 10*3/uL [facility] Immature granulocytes/100 WBC (Bld) 1.30 % [facility] Comment on above: The IG parameter is the percentage of metamyelocytes, myelocytes, and promyelocytes. Interpretation and review of laboratory results Abnormal [facility] Lymphocytes (Bld) [#/Vol] 3.52 10*3/uL [facility] Lymphocytes/100 WBC (Bld) 30.9 % [facility] MCH (RBC) [Entitic mass] 27.4 pg 26 - 34 pg [facility] MCHC (RBC) [Mass/Vol] 32.3 g/dL 31 - 3 7 g/dL [facility] MCV (RBC) [Entitic vol] 85.0 fL 80 - 100 fL [facility] Monocytes (Bld) [#/Vol] 0.93 10*3/uL [facility] Monocytes/100 WBC (Bld) 8.2 % [facility] Neutrophils (Bld) [#/Vol] 5.96 10*3/uL [facility] Neutrophils/100 WBC (Bld) 52.4 % [facility] Nucleated RBC (Bld) [#/Vol] 0.00 10*3/uL [facility] Nucleated RBC/100 WBC (Bld) [Ratio] 0.0 % [facility] Platelet mean volume (Bld) [Entitic vol] 10.0 fL 9 - 15.5 fL [facility] Platelets (Bld) [#/Vol] 237 10*3/uL [facility] RBC (Bld) [#/Vol] 4.92 10*6/uL [facility]alth WBC (Bld) [#/Vol] 11.38 10*3/uL [facility] DRUGS OF ABUSE SCREEN, URINE on 01-22-2019 Amphetamines Ql (U) None Detected None Detected [facility] Comment on above: Urine Amphetamine Cu toff: < 1000 ng/mL = None Detected Barbiturates Screen Ql (U) None Detected None Detected [facility] Comment on above: Urine Barbiturates C utoff: < 200 ng/mL = None Detected Benzodiazepines Ql (U) None Detected None Detected [facility] Comment on above: Urine Benzodiazepine Cutoff: < 200 ng/mL = None Detected Cannabinoids Screen Ql (U) None Detected None Detected [facility] Comment on above: Urine Cannabinoids C utoff: < 50 ng/mL = None Detected Cocaine Ql (U) None Detected None Detected [facility] Comment on above: Urine Cocaine Cutoff : < 300 ng/mL = None Detected Interpretation and review of laboratory results Normal [facility] Methadone Screen Ql (U) None Detected Non e Detected [facility] Comment on above: Urine Methadone Cuto ff: < 300 ng/mL = None Detected Opiates Screen Ql (U) None Detected None Detected [facility] Comment on above: Urine Opiates Cutoff : < 300 ng/mL = None Detected Oxycodone Ql (U) None Detected None Detected [facility] Comment on above: Urine Oxycodone Cuto ff: < 100 ng/mL = None Detected Screen results shoul d be used for treatment purposes only. [facility] Otheron 01-22-2019 Interpretation and review of laboratory results Abnormal [facility] POC Glucoseon 01-22-2019 Glucose [Mass/Vol] 142 mg/dL High 65 - 99 mg/dL [facility] Interpretation and review of laboratory results Abnormal [facility] Glucose [Mass/Vol] 107 mg/dL High 65 - 99 mg/dL [facility] Glucose [Mass/Vol] 116 mg/dL High 65 - 99 mg/dL [facility] Interpretation and review of laboratory results Abnormal [facility] URINALYSISon 01-22-2019 Bacteria Auto Ql (U) None Seen None Se en /hpf [facility] Bilirubin Ql (U) Negative Negative [facility] th Clarity Refractometry automated (U) Clear Clear [facility] Color (U) Colorless Colorless, Yellow [facility] Glucose Auto test strip (U) [Mass/Vol] Negative Negative mg/dL [facility] Hemoglobin Auto test strip Ql (U) Negative Negative [facility] Interpretation and review of laboratory results Normal [facility] Ketones (U) [Mass/Vol] Negative Negat bryan mg/dL [facility] Leukocyte esterase Auto test strip Ql (U) Negative Negative [facility] Nitrite Auto test strip Ql (U) Negative Negative [facility] pH (U) 6.0 [pH] [facility] Protein (U) [Mass/Vol] Negative Negat bryan mg/dL [facility] RBC Auto (Urine sed) [#/Area] <1 [facility] Specific gravity (U) [Rel density] 1.008 [facility] Urobilinogen (U) [Mass/Vol] <2.0 <2.0 mg/dL [facility] WBC Auto (Urine sed) [#/Area] <1 [facility] Microscopic examinat ion is performed on all urinalysis samples and only positive findings are reported. The test for blood on the chemical analytic portion of urinalysis may also be positive due to hemoglobinuria and myoglobinuria and if red blood cells are present they are quantified by microscopic examination. [facility] APTTon 01-21-2019 aPTT Coag (Bld) [Time] 30 s [facility] Interpretation and review of laboratory results Normal [facility] Therapeutic range fo r APTT's is 68 - 104 seconds [facility] Basic Metabolic Panelon 01-12 Anion gap [Moles/Vol] 11 mmol/L 10 - 2 0 mmol/L [facility] Calcium [Mass/Vol] 9.1 mg/dL 8.4 - 10. 2 mg/dL [facility] Chloride [Moles/Vol] 102 mmol/L 98 - 10 8 mmol/L [facility] Creatinine [Mass/Vol] 1.11 mg/dL 0.5 - 1.3 mg/dL [facility] GFR/1.73 sq M.predicted CKD-EPI (S/P/Bld) [Vol rate/Area] 79 >=60 mL/min/1.7 3 m2 [facility] Glucose [Mass/Vol] 116 mg/dL High 65 - 99 mg/dL [facility] HCO3 [Moles/Vol] 26 mmol/L 21 - 32 mmol/L [facility] Interpretation and review of laboratory results Abnormal [facility] Potassium [Moles/Vol] 4.0 mmol/L 3.5 - 5.1 mmol/L [facility] Sodium [Moles/Vol] 135 mmol/L 135 - 145 mmol/L [facility] Urea nitrogen [Mass/Vol] 22 mg/dL 8 - 25 mg/dL [facility] Urea nitrogen/Creatinine [Mass ratio] 19.8 mg/mg [facility] The eGFR should be u sed for monitoring renal function only and not for medication dosing. [facility] CBC WITH AUTO DIFFERENTIALon 01-21-2019 Basophils (Bld) [#/Vol] 0.07 10*3/uL [facility] Basophils/100 WBC (Bld) 0.6 % [facility] Eosinophils (Bld) [#/Vol] 0.69 10*3/uL High [facility] Eosinophils/100 WBC (Bld) 6.1 % [facility] Erythrocyte distribution width (RBC) [Entitic vol] 14.0 % 11.6 - 14.8 % [facility] Hematocrit (Bld) [Volume fraction] 43.6 % 41 - 53 % [facility] Hemoglobin (Bld) [Mass/Vol] 14.2 g/dL 13.5 - 17.5 g/dL [facility] Immature granulocytes (Bld) [#/Vol] 0.14 10*3/uL [facility] Immature granulocytes/100 WBC (Bld) 1.20 % [facility] Comment on above: The IG parameter is the percentage of metamyelocytes, myelocytes, and promyelocytes. Interpretation and review of laboratory results Abnormal [facility] Lymphocytes (Bld) [#/Vol] 2.23 10*3/uL [facility] Lymphocytes/100 WBC (Bld) 19.8 % [facility] MCH (RBC) [Entitic mass] 27.6 pg 26 - 34 pg [facility] MCHC (RBC) [Mass/Vol] 32.6 g/dL 31 - 3 7 g/dL [facility] MCV (RBC) [Entitic vol] 84.7 fL 80 - 100 fL [facility] Monocytes (Bld) [#/Vol] 0.98 10*3/uL [facility] Monocytes/100 WBC (Bld) 8.7 % [facility] Neutrophils (Bld) [#/Vol] 7.17 10*3/uL [facility] Neutrophils/100 WBC (Bld) 63.6 % [facility] Nucleated RBC (Bld) [#/Vol] 0.00 10*3/uL [facility] Nucleated RBC/100 WBC (Bld) [Ratio] 0.0 % [facility] Platelet mean volume (Bld) [Entitic vol] 9.9 fL 9 - 15.5 fL [facility] Platelets (Bld) [#/Vol] 267 10*3/uL [facility] RBC (Bld) [#/Vol] 5.15 10*6/uL [facility] ealt WBC (Bld) [#/Vol] 11.28 10*3/uL [facility] ECHOCARDIOGRAM 2D COMPLETEon 01-21-[address] [address] [place] [address] ----- ECHOCARDIOGRAPHY REPORT - [facility] ----- Name: FERNANDO Priyanka HELTON Age: 48 years Date: 01/21/2019 [facility] #: [id number] : 1970 Room: [facility] Rec #: [id number] Sex: M Tech: Emma Tsai Ordering Physician: [id number] KRISTIN ABRAHAM TITLEY Height: 67.00 Sys BP: 119 in cc: , Weight: 257.00 Mira BP: 78 Reading Physician: [id number] Durán/ Rhythm: Sinus Electronically Signed by: [id number] Durán BSA: 2.25 m on: 01/21/2019 Reason [...] LA Index (BP) 17.6 ml/m TAPSE LAESV PROCESS SPECIALIST NOTES: Definity (if used): 3ml Final [facility] Keith Robin In [facility] - 01/21/2019 3:[address] [address] [place] [address] ----- ECHOCARDIOGRAPHY REPORT - [facility] ----- Name: FERNANDO HELTON Age: 48 years Date: 01/21/2019 Hospital #: [id number] : 1970 Room: [facility] Rec #: [id number] Sex: M Tech: Emma Tsai Ordering Physician: [id number] KRISTIN ABRAHAM TITLEY Height: 67.00 Sys BP: 119 in cc: , Weight: 257.00 Mira BP: 78 Reading Physician: [id number] Magda Durán/ Rhythm: Sinus Electronically Signed by: [id number] Magda Durán BSA: 2.25 m on: 01/21/2019 [...] LA Index (BP) 17.6 ml/m TAPSE LAESV PROCESS SPECIALIST NOTES: Definity (if used): 3ml Final IMPRESSION: 1. Mildly dilated left ventricle with basal septal wall hypertrophy measuring 1.5 cm in maximal thickness. Mild segmental left ventricular systolic dysfunction with estimated LVEF 45-50%. Wall motion abnormalities as outlined below. [facility] 1. Mildly dilated le ft ventricle with basal septal wall hypertrophy measuring 1.5 cm in maximal thickness. Mild segmental left ventricular systolic dysfunction with estimated LVEF 45-50%. Wall motion abnormalities as outlined below. [facility] POC Glucoseon 01-21-2019 Glucose [Mass/Vol] 147 mg/dL High 65 - 99 mg/dL [facility] Interpretation and review of laboratory results Abnormal [facility] Glucose [Mass/Vol] 176 mg/dL High 65 - 99 mg/dL [facility] Interpretation and review of laboratory results Abnormal [facility] Glucose [Mass/Vol] 119 mg/dL High 65 - 99 mg/dL [facility] Interpretation and review of laboratory results Abnormal [facility] XR CHEST AP/PA AND LATon Interface, [...] No acute cardiopulmonary disease. Workstation ID: [id number] [facility] EXAMINATION: XR CHES T AP/PA AND [...] focal airspace consolidation, or pulmonary vascular congestion. [facility] No acute cardiopulmo nary disease. Workstation ID: [id number] [facility] ABORH VERIFICATIONon 019 ABO and Rh group Nom (Bld) ABO/Rh Verification [facility] ABO and Rh group Nom (Bld) O Negative [facility] Patient's ABO/Rh is verified. [facility] AMYLASEon 01-20-2019 Amylase [Catalytic activity/Vol] 38 U/L 25 - 115 U/L [facility] APTTon 01-20-2019 aPTT Coag (Bld) [Time] 61 s High [facility] Interpretation and review of laboratory results Abnormal [facility] Therapeutic range fo r APTT's is 68 - 104 seconds [facility] Basic Metabolic Panelon Anion gap [Moles/Vol] 12 mmol/L 10 - 2 0 mmol/L [facility] Calcium [Mass/Vol] 8.3 mg/dL Low 8.4 - 10. 2 mg/dL [facility] Chloride [Moles/Vol] 106 mmol/L 98 - 10 8 mmol/L [facility] Creatinine [Mass/Vol] 1.17 mg/dL 0.5 - 1.3 mg/dL [facility] GFR/1.73 sq M.predicted CKD-EPI (S/P/Bld) [Vol rate/Area] 74 >=60 mL/min/1.7 3 m2 [facility] Glucose [Mass/Vol] 134 mg/dL High 65 - 99 mg/dL [facility] HCO3 [Moles/Vol] 24 mmol/L 21 - 32 mmol/L [facility] Interpretation and review of laboratory results Abnormal [facility] Potassium [Moles/Vol] 3.9 mmol/L 3.5 - 5.1 mmol/L [facility] Sodium [Moles/Vol] 138 mmol/L 135 - 145 mmol/L [facility] Urea nitrogen [Mass/Vol] 19 mg/dL 8 - 25 mg/dL [facility] Urea nitrogen/Creatinine [Mass ratio] 16.2 mg/mg [facility] The eGFR should be u sed for monitoring renal function only and not for medication dosing. [facility] CARDIAC CATHETERIZATIONon Cardiac Catheterizat ion Operative [...] the chart. Patient was brought to the [facility] and prepped and draped in usual sterile [...] using a modified Seldinger technique. A 5 Kosovan sheath was placed. JL4 and JR4 catheter [...] None; patient tolerated the procedure well. Disposition: [facility] Bed Condition: stable Electronically Signed by: Carlo Mercedes M.D 01/20/19 9:09 AM [facility] CBC WITH AUTO DIFFERENTIALon 01-20-2019 Basophils (Bld) [#/Vol] 0.08 10*3/uL [facility] Basophils/100 WBC (Bld) 0.6 % [facility] Eosinophils (Bld) [#/Vol] 0.76 10*3/uL High [facility] Eosinophils/100 WBC (Bld) 5.7 % [facility] Erythrocyte distribution width (RBC) [Entitic vol] 14.2 % 11.6 - 14.8 % [facility] Hematocrit (Bld) [Volume fraction] 41.2 % 41 - 53 % [facility] Hemoglobin (Bld) [Mass/Vol] 13.6 g/dL 13.5 - 17.5 g/dL [facility] Immature granulocytes (Bld) [#/Vol] 0.10 10*3/uL [facility] Immature granulocytes/100 WBC (Bld) 0.70 % [facility] Comment on above: The IG parameter is the percentage of metamyelocytes, myelocytes, and promyelocytes. Interpretation and review of laboratory results Abnormal [facility] Lymphocytes (Bld) [#/Vol] 3.59 10*3/uL [facility] Lymphocytes/100 WBC (Bld) 26.7 % [facility] MCH (RBC) [Entitic mass] 28.2 pg 26 - 34 pg [facility] MCHC (RBC) [Mass/Vol] 33.0 g/dL 31 - 3 7 g/dL [facility] MCV (RBC) [Entitic vol] 85.3 fL 80 - 100 fL [facility] Monocytes (Bld) [#/Vol] 1.01 10*3/uL [facility] Monocytes/100 WBC (Bld) 7.5 % [facility] Neutrophils (Bld) [#/Vol] 7.90 10*3/uL High [facility] Neutrophils/100 WBC (Bld) 58.8 % [facility] Nucleated RBC (Bld) [#/Vol] 0.00 10*3/uL [facility] Nucleated RBC/100 WBC (Bld) [Ratio] 0.0 % [facility] Platelet mean volume (Bld) [Entitic vol] 10.1 fL 9 - 15.5 fL [facility] Platelets (Bld) [#/Vol] 259 10*3/uL [facility] RBC (Bld) [#/Vol] 4.83 10*6/uL [facility] ealth WBC (Bld) [#/Vol] 13.44 10*3/uL [facility] EKGon 01-20-2019 Ordered by an unspec ified provider. [facility] Hemoglobin A1con 01-20-2019 Average glucose Estimated from glycated hemoglobin mass conc (Bld) 140 mg/dL High 68 - 114 mg/dL [facility] HbA1c (Bld) [Mass fraction] 6.5 % High 4 - 5.6 % [facility] Interpretation and review of laboratory results Abnormal [facility] Normal: 4.0% - 5.6% Increased risk for diabetes: 5.7% - 6.4% Diabetes: >= 6.5% Pediatrics: No established reference range Estimated average glucose: 68-114 mg/dL [facility] Hepatic Function Panelon Albumin [Mass/Vol] 3.1 g/dL Low 3.2 - 5.2 g/dL [facility] ALP [Catalytic activity/Vol] 68 U/L 40 - 150 U/L [facility] ALT [Catalytic activity/Vol] 79 U/L High 14 - 65 U/L [facility] AST [Catalytic activity/Vol] 42 U/L 0 - 45 U/L [facility] Bilirubin [Mass/Vol] 0.7 mg/dL 0 - 1.3 mg/dL [facility] Bilirubin.conjugated [Mass/Vol] 0.1 mg/dL 0 - 0.4 mg/dL [facility] Protein [Mass/Vol] 6.3 g/dL 6 - 8 g/dL [facility] Otheron 01-20-2019 Interpretation and review of laboratory results Normal [facility] Interpretation and review of laboratory results Abnormal [facility] POC ARTERIAL BLOOD GAS PANEL -PULM - RALSon 01-20-2019 Alveolar-arterial oxygen Partial pressure difference 24.0 mm Hg [facility] Base excess Calc (Bld) [Moles/Vol] 0.6 mmol/L [facility] Breath rate setting Ventilator synchronized intermittent mandatory 0 [facility] h CO2 (Bld) [Partial pressure] 41.3 mm[Hg] [facility] HCO3 (Bld) [Moles/Vol] 25.5 mmol/L 22 - 26 mmol/L [facility] Hematocrit (BldA) [Volume fraction] 43.1 % 41 - 53 % [facility] Hemoglobin (Bld) [Mass/Vol] 14.1 g/dL 13.5 - 18 g/dL [facility] Inhaled oxygen concentration 21 % [facility] Interpretation and review of laboratory results Abnormal [facility] Oxygen (Bld) [Partial pressure] 70 mm[Hg] Low [facility] pH (Bld) 7.40 [pH] [facility] SaO2% (BldA) [Mass fraction] 94.5 % 92 - 99 % [facility] Specimen source Nom (Unsp spec) Radial, left [facility] Tidal volume setting Ventilator 0 [facility] PT/INRon 01-20-2019 INR Coag (PPP) [Relative time] 1.0 {INR} [facility] Interpretation and review of laboratory results Normal [facility] PT Coag (PPP) [Time] 12.7 s [facility] During the induction phase of oral anticoagulation, the INR may not reflect the anticoagulation status of the patient. Therapeutic ranges for INR's are: Most clinical situations: INR 2.0-3.0 Mechanical Prosthetic Valve: INR 2.5-3.5 Critical: INR >5.0 [facility] Prealbuminon 01-20-2019 Prealbumin [Mass/Vol] 19.7 mg/dL Low 20 - 4 0 mg/dL [facility] T4, Freeon 01-20-2019 Free T4 [Mass/Vol] 1.0 ng/dL 0.7 - 1.7 ng/dL [facility] TSHon 01-20-2019 TSH Qn 1.15 m[IU]/L [facility] Type and Screenon 01-20-2019 ABO and Rh group Nom (Bld) O Negative [facility] Blood group antibody screen Ql Negative [facility] Specimen Expires 01/23/2019 23:59 EST [facility] APTTon 01-19-2019 aPTT Coag (Bld) [Time] 79 s High [facility] Interpretation and review of laboratory results Abnormal [facility] Therapeutic range fo r APTT's is 68 - 104 seconds [facility] aPTT Coag (Bld) [Time] 85 s High [facility] Interpretation and review of laboratory results Abnormal [facility] Therapeutic range fo r APTT's is 68 - 104 seconds [facility] aPTT Coag (Bld) [Time] 89 s High [facility] Interpretation and review of laboratory results Abnormal [facility] Therapeutic range fo r APTT's is 68 - 104 seconds [facility] Basic Metabolic Panelon Anion gap [Moles/Vol] 11 mmol/L 10 - 2 0 mmol/L [facility] Calcium [Mass/Vol] 8.6 mg/dL 8.4 - 10. 2 mg/dL [facility] Chloride [Moles/Vol] 108 mmol/L 98 - 10 8 mmol/L [facility] Creatinine [Mass/Vol] 1.15 mg/dL 0.5 - 1.3 mg/dL [facility] GFR/1.73 sq M.predicted CKD-EPI (S/P/Bld) [Vol rate/Area] 75 >=60 mL/min/1.7 3 m2 [facility] Glucose [Mass/Vol] 121 mg/dL High 65 - 99 mg/dL [facility] HCO3 [Moles/Vol] 25 mmol/L 21 - 32 mmol/L [facility] Interpretation and review of laboratory results Abnormal [facility] Potassium [Moles/Vol] 4.0 mmol/L 3.5 - 5.1 mmol/L [facility] Sodium [Moles/Vol] 140 mmol/L 135 - 145 mmol/L [facility] Urea nitrogen [Mass/Vol] 19 mg/dL 8 - 25 mg/dL [facility] Urea nitrogen/Creatinine [Mass ratio] 16.5 mg/mg [facility] The eGFR should be u sed for monitoring renal function only and not for medication dosing. [facility] CBCon 01-19-2019 Erythrocyte distribution width (RBC) [Entitic vol] 14.1 % 11.6 - 14.8 % [facility] Hematocrit (Bld) [Volume fraction] 41.6 % 41 - 53 % [facility] Hemoglobin (Bld) [Mass/Vol] 13.8 g/dL 13.5 - 17.5 g/dL [facility] Interpretation and review of laboratory results Abnormal [facility] MCH (RBC) [Entitic mass] 28.1 pg 26 - 34 pg [facility] MCHC (RBC) [Mass/Vol] 33.2 g/dL 31 - 3 7 g/dL [facility] MCV (RBC) [Entitic vol] 84.7 fL 80 - 100 fL [facility] Nucleated RBC (Bld) [#/Vol] 0.00 10*3/uL [facility] Nucleated RBC/100 WBC (Bld) [Ratio] 0.0 % [facility] Platelet mean volume (Bld) [Entitic vol] 10.0 fL 9 - 15.5 fL [facility] Platelets (Bld) [#/Vol] 258 10*3/uL [facility] RBC (Bld) [#/Vol] 4.91 10*6/uL [facility]alth WBC (Bld) [#/Vol] 14.77 10*3/uL [facility] CBC WITH AUTO DIFFERENTIALon 01-19-2019 Basophils (Bld) [#/Vol] 0.08 10*3/uL [facility] Basophils/100 WBC (Bld) 0.6 % [facility] Eosinophils (Bld) [#/Vol] 0.74 10*3/uL High [facility] Eosinophils/100 WBC (Bld) 5.6 % [facility] Erythrocyte distribution width (RBC) [Entitic vol] 14.3 % 11.6 - 14.8 % [facility] Hematocrit (Bld) [Volume fraction] 41.6 % 41 - 53 % [facility] Hemoglobin (Bld) [Mass/Vol] 13.7 g/dL 13.5 - 17.5 g/dL [facility] Immature granulocytes (Bld) [#/Vol] 0.10 10*3/uL [facility] Immature granulocytes/100 WBC (Bld) 0.80 % [facility] Comment on above: The IG parameter is the percentage of metamyelocytes, myelocytes, and promyelocytes. Interpretation and review of laboratory results Abnormal [facility] Lymphocytes (Bld) [#/Vol] 3.57 10*3/uL [facility] Lymphocytes/100 WBC (Bld) 27.0 % [facility] MCH (RBC) [Entitic mass] 28.3 pg 26 - 34 pg [facility] MCHC (RBC) [Mass/Vol] 32.9 g/dL 31 - 3 7 g/dL [facility] MCV (RBC) [Entitic vol] 86.0 fL 80 - 100 fL [facility] Monocytes (Bld) [#/Vol] 0.92 10*3/uL [facility] Monocytes/100 WBC (Bld) 7.0 % [facility] Neutrophils (Bld) [#/Vol] 7.81 10*3/uL [facility] Neutrophils/100 WBC (Bld) 59.0 % [facility] Nucleated RBC (Bld) [#/Vol] 0.00 10*3/uL [facility] Nucleated RBC/100 WBC (Bld) [Ratio] 0.0 % [facility] Platelet mean volume (Bld) [Entitic vol] 10.1 fL 9 - 15.5 fL [facility] Platelets (Bld) [#/Vol] 256 10*3/uL [facility] RBC (Bld) [#/Vol] 4.84 10*6/uL [facility]alth WBC (Bld) [#/Vol] 13.22 10*3/uL [facility] APTTon 01-18-2019 aPTT Coag (Bld) [Time] [address] [facility] Interpretation and review of laboratory results Abnormal [facility] Therapeutic range fo r APTT's is 68 - 104 seconds [facility] aPTT Coag (Bld) [Time] [address] [facility] Interpretation and review of laboratory results Abnormal [facility] Therapeutic range fo r APTT's is 68 - 104 seconds [facility] aPTT Coag (Bld) [Time] 31 s [facility] Interpretation and review of laboratory results Normal [facility] Therapeutic range fo r APTT's is 68 - 104 seconds [facility] Basic Metabolic Panelon 12- Anion gap [Moles/Vol] 9 mmol/L Low 10 - 2 0 mmol/L [facility] Calcium [Mass/Vol] 8.1 mg/dL Low 8.4 - 10. 2 mg/dL [facility] Chloride [Moles/Vol] 109 mmol/L High 98 - 10 8 mmol/L [facility] Creatinine [Mass/Vol] 1.11 mg/dL 0.5 - 1.3 mg/dL [facility] GFR/1.73 sq M.predicted CKD-EPI (S/P/Bld) [Vol rate/Area] 79 >=60 mL/min/1.7 3 m2 [facility] Glucose [Mass/Vol] 125 mg/dL High 65 - 99 mg/dL [facility] HCO3 [Moles/Vol] 24 mmol/L 21 - 32 mmol/L [facility] Potassium [Moles/Vol] 4.0 mmol/L 3.5 - 5.1 mmol/L [facility] Sodium [Moles/Vol] 138 mmol/L 135 - 145 mmol/L [facility] Urea nitrogen [Mass/Vol] 22 mg/dL 8 - 25 mg/dL [facility] Urea nitrogen/Creatinine [Mass ratio] 19.8 mg/mg [facility] The eGFR should be u sed for monitoring renal function only and not for medication dosing. [facility] CBCon 01-17-2019 Erythrocyte distribution width (RBC) [Entitic vol] 14.1 % 11.6 - 14.8 % [facility] Hematocrit (Bld) [Volume fraction] 38.7 % Low 41 - 53 % [facility] Hemoglobin (Bld) [Mass/Vol] 12.8 g/dL Low 13.5 - 17.5 g/dL [facility] Interpretation and review of laboratory results Abnormal [facility] MCH (RBC) [Entitic mass] 28.4 pg 26 - 34 pg [facility] MCHC (RBC) [Mass/Vol] 33.1 g/dL 31 - 3 7 g/dL [facility] MCV (RBC) [Entitic vol] 85.8 fL 80 - 100 fL [facility] Nucleated RBC (Bld) [#/Vol] 0.00 10*3/uL [facility] Nucleated RBC/100 WBC (Bld) [Ratio] 0.0 % [facility] Platelet mean volume (Bld) [Entitic vol] 9.9 fL 9 - 15.5 fL [facility] Platelets (Bld) [#/Vol] 227 10*3/uL [facility] RBC (Bld) [#/Vol] 4.51 10*6/uL [facility] WBC (Bld) [#/Vol] 11.26 10*3/uL [facility] CBC WITH AUTO DIFFERENTIALon 01-17-2019 Basophils (Bld) [#/Vol] 0.08 10*3/uL [facility] Basophils/100 WBC (Bld) 0.7 % [facility] Eosinophils (Bld) [#/Vol] 0.64 10*3/uL [facility] Eosinophils/100 WBC (Bld) 5.3 % [facility] Erythrocyte distribution width (RBC) [Entitic vol] 14.0 % 11.6 - 14.8 % [facility] Hematocrit (Bld) [Volume fraction] 41.5 % 41 - 53 % [facility] Hemoglobin (Bld) [Mass/Vol] 13.6 g/dL 13.5 - 17.5 g/dL [facility] Immature granulocytes (Bld) [#/Vol] 0.08 10*3/uL [facility] Immature granulocytes/100 WBC (Bld) 0.70 % [facility] Comment on above: The IG parameter is the percentage of metamyelocytes, myelocytes, and promyelocytes. Interpretation and review of laboratory results Abnormal [facility] Lymphocytes (Bld) [#/Vol] 3.37 10*3/uL [facility] Lymphocytes/100 WBC (Bld) 27.9 % [facility] MCH (RBC) [Entitic mass] 28.0 pg 26 - 34 pg [facility] MCHC (RBC) [Mass/Vol] 32.8 g/dL 31 - 3 7 g/dL [facility] MCV (RBC) [Entitic vol] 85.6 fL 80 - 100 fL [facility] Monocytes (Bld) [#/Vol] 1.02 10*3/uL [facility] Monocytes/100 WBC (Bld) 8.4 % [facility] Neutrophils (Bld) [#/Vol] 6.89 10*3/uL [facility] Neutrophils/100 WBC (Bld) 57.0 % [facility] Nucleated RBC (Bld) [#/Vol] 0.00 10*3/uL [facility] Nucleated RBC/100 WBC (Bld) [Ratio] 0.0 % [facility] Platelet mean volume (Bld) [Entitic vol] 10.0 fL 9 - 15.5 fL [facility] Platelets (Bld) [#/Vol] 269 10*3/uL [facility] RBC (Bld) [#/Vol] 4.85 10*6/uL [facility] WBC (Bld) [#/Vol] 12.08 10*3/uL [facility] D-DIMER, QUANTITATIVEon 12-0 Fibrin D-dimer FEU (PPP) [Mass/Vol] <0.27 0.27 - 0.49 mcg/mL FEU [facility] Interpretation and review of laboratory results Normal [facility] A D-dimer concentrat ion of <0.5 micrograms per milliliter FEU is considered a low probability for pulmonary embolus (PE) and deep venous thrombosis (DVT). Results of this test should always be interpreted in conjunction with the patient's medical history,clinical presentation, and other findings. Clinical diagnosis should not be based on the results of the D-dimer alone. [facility] Fibrin D-dimer FEU (PPP) [Mass/Vol] 0.30 0.27 - 0.49 mcg/mL FEU [facility] Interpretation and review of laboratory results Normal [facility] A D-dimer concentrat ion of <0.5 micrograms per milliliter FEU is considered a low probability for pulmonary embolus (PE) and deep venous thrombosis (DVT). Results of this test should always be interpreted in conjunction with the patient's medical history,clinical presentation, and other findings. Clinical diagnosis should not be based on the results of the D-dimer alone. [facility] ECG 12-LEADon 01-17-2019 Atrial Rate 73 BPM [facility] P [place] 67 degrees [facility] P-R Interval 164 ms [facility] Q-T Interval 386 ms [facility] QRS Duration 86 ms [facility] QTC Calculation (Bezet) 425 ms [facility] R [place] 2 degrees [facility] T [place] 65 degrees [facility] Ventricular Rate 73 BPM [facility] th Normal sinus rhythm Low voltage QRS Inferior infarct , age undetermined Cannot rule out Anteroseptal infarct , age undetermined Abnormal ECG ECG Cart Interpretation see physician note for interpretation. Confirmed by Brandy Kc ([id number]) on 01/17/2019 12:18:52 PM [facility] Hepatic Function Panel (LFT) on 01-17-2019 Albumin [Mass/Vol] 3.1 g/dL Low 3.2 - 5.2 g/dL [facility] ALP [Catalytic activity/Vol] 75 U/L 40 - 150 U/L [facility] ALT [Catalytic activity/Vol] 67 U/L High 14 - 65 U/L [facility] AST [Catalytic activity/Vol] 28 U/L 0 - 45 U/L [facility] Bilirubin [Mass/Vol] 0.9 mg/dL 0 - 1.3 mg/dL [facility] Bilirubin.conjugated [Mass/Vol] 0.2 mg/dL 0 - 0.4 mg/dL [facility] Protein [Mass/Vol] 6.2 g/dL 6 - 8 g/dL [facility] Lactic Acid, Plasmaon 2018 Interpretation and review of laboratory results Normal [facility] Lactate [Moles/Vol] 1.2 mmol/L 0.6 - 2 mmol/L [facility] Lipaseon 01-17-2019 Lipase [Catalytic activity/Vol] 89 U/L 73 - 393 U/L [facility] NT Pro BNPon 01-17-2019 Natriuretic peptide.B prohormone N-Terminal [Mass/Vol] 123 pg/mL 0 - 300 pg/mL [facility] Comment on above: Please note referenc e range change as of 01/30/18. [employer] Cut-offs Rule In: < /= 50 Years >450 pg/mL 51 Years - 75 Years >900 pg/mL 76 Years - 99 Years >1800 pg/mL Rule Out: All patients <300 pg/mL [facility] Otheron 01-17-2019 Interpretation and review of laboratory results Abnormal [facility] Interpretation and review of laboratory results Normal [facility] PT/INRon 01-17-2019 INR Coag (PPP) [Relative time] 1.0 {INR} [facility] Interpretation and review of laboratory results Normal [facility] PT Coag (PPP) [Time] 12.5 s [facility] During the induction phase of oral anticoagulation, the INR may not reflect the anticoagulation status of the patient. Therapeutic ranges for INR's are: Most clinical situations: INR 2.0-3.0 Mechanical Prosthetic Valve: INR 2.5-3.5 Critical: INR >5.0 [facility] TROPONINon 01-17-2019 Troponin I.cardiac [Mass/Vol] ng/mL <=45 ng/L [facility] Troponin I.cardiac [Mass/Vol] No biomarker evidence of cardiac injury. [facility] Troponin I.cardiac [Mass/Vol] No biomarker evidence of cardiac injury. [facility] Troponin I.cardiac [Mass/Vol] ng/mL <=45 ng/L [facility] Troponin I.cardiac [Mass/Vol] ng/mL <=45 ng/L [facility] Troponin I.cardiac [Mass/Vol] Normal [facility] URINALYSISon 01-17-2019 Bacteria Auto Ql (U) None Seen None Se en /hpf [facility] Bilirubin Ql (U) Negative Negative [facility] th Clarity Refractometry automated (U) Clear Clear [facility] Color (U) Yellow Colorless, Yellow [facility] Glucose Auto test strip (U) [Mass/Vol] Negative Negative mg/dL [facility] Hemoglobin Auto test strip Ql (U) Negative Negative [facility] Interpretation and review of laboratory results Normal [facility] Ketones (U) [Mass/Vol] Negative Negat bryan mg/dL [facility] Leukocyte esterase Auto test strip Ql (U) Negative Negative [facility] Nitrite Auto test strip Ql (U) Negative Negative [facility] pH (U) 6.0 [pH] [facility] Protein (U) [Mass/Vol] Negative Negat bryan mg/dL [facility] Specific gravity (U) [Rel density] 1.019 [facility] Urobilinogen (U) [Mass/Vol] <2.0 <2.0 mg/dL [facility] WBC Auto (Urine sed) [#/Area] <1 [facility] Microscopic examinat ion is performed on all urinalysis samples and only positive findings are reported. The test for blood on the chemical analytic portion of urinalysis may also be positive due to hemoglobinuria and myoglobinuria and if red blood cells are present they are quantified by microscopic examination. [facility] XR Chest 1 Viewon 01-17-2019 No acute cardiopulmo nary process. [employer] Workstation ID: [id number] [facility] Interface, Rad In Fu ji Speechq [...] is unremarkable. IMPRESSION: No acute cardiopulmonary process. [employer] Workstation ID: [id number] [facility] EXAMINATION: XR CHES T PA/AP HISTORY: [...] normal in size. Bony thorax is unremarkable. [facility] ECG 12-LEADon 01-04-2019 Brian Cordoba MD 01/04/2019 7:49 PM ECG 12- Lead Date/Time: 01/04/2019 6:25 PM Performed by: Brian Cordoba MD Authorized by: Brian Cordoba MD Rhythm: sinus rhythm BPM: 75 Comments: Normal sinus rhythm at rate of 75 bpm low voltage QRS; QTC 4 4 4 ms; [facility] POC B-type natriuretic pepti de (BNP)on 01-04-2019 Interpretation and review of laboratory results Normal [facility] Natriuretic peptide B (Bld) [Mass/Vol] 42.1 pg/mL <100 [facility] POC Basic Metabolic Panelon 01-04-2019 Calcium.ionized (Bld) [Mass/Vol] 4.8 mg/dL 4.5 - 5.3 mg/dL [facility] Chloride [Moles/Vol] 102 mmol/L 98 - 10 8 mmol/L [facility] CO2 [Moles/Vol] 27 mmol/L 21 - 32 mmol/L [facility] Creatinine [Mass/Vol] 0.95 mg/dL 0.5 - 1.3 mg/dL [facility] GFR/1.73 sq M.predicted MDRD (S/P/Bld) [Vol rate/Area] 95 mL/min/{1.73_m2} >=60 mL/min/1.7 3 m2 [facility] Glucose [Mass/Vol] 123 mg/dL High 65 - 99 mg/dL [facility] Interpretation and review of laboratory results Abnormal [facility] Potassium [Moles/Vol] 4.0 mmol/L 3.5 - 5.1 mmol/L [facility] Sodium [Moles/Vol] 141 mmol/L 135 - 145 mmol/L [facility] Urea nitrogen [Mass/Vol] 23 mg/dL 8 - 25 mg/dL [facility] POC CBC and Differentialon 1 03-06-2018 Erythrocyte distribution width (RBC) [Entitic vol] 14.8 % 11.6 - 14.8 % [facility] Hematocrit (Bld) [Volume fraction] 43.1 % 41 - 53 % [facility] Hemoglobin (Bld) [Mass/Vol] 14.3 g/dL 13.5 - 17.5 g/dL [facility] Interpretation and review of laboratory results Abnormal [facility] Lymphocytes (Bld) [#/Vol] 3.0 10*3/uL [facility] Lymphocytes/100 WBC (Bld) 25.9 % [facility] MCH (RBC) [Entitic mass] 28.4 pg 26 - 34 pg [facility] MCHC (RBC) [Mass/Vol] 33.2 g/dL 31 - 3 7 g/dL [facility] MCV (RBC) [Entitic vol] 85.5 fL 80 - 100 fL [facility] Mixed 10.6 % [facility] Mixed Abs 1.2 K/mcl [facility] Neutrophil Abs 7.3 High [facility] Neutrophils/100 WBC (Bld) 63.5 % [facility] Platelet mean volume (Bld) [Entitic vol] 10.6 fL 9 - 15.5 fL [facility] Platelets (Bld) [#/Vol] 289 10*3/uL [facility] RBC (Bld) [#/Vol] 5.04 10*6/uL [facility] ealth WBC (Bld) [#/Vol] 11.50 10*3/uL [facility] POC D-dimeron 01-04-2019 Fibrin D-dimer DDU (PPP) [Mass/Vol] <100 <350 ng/mL DDU [facility] Interpretation and review of laboratory results Normal [facility] A D-Dimer concentrat ion of <350 [...] normal patients are less than 400 ng/ml. [facility] POC Liver Panel Pluson 01-04 Albumin [Mass/Vol] 3.4 g/dL 3.2 - 5.2 g/dL [facility] ALP [Catalytic activity/Vol] 83 U/L 40 - 150 U/L [facility] ALT [Catalytic activity/Vol] 52 U/L High 0 - 40 U/L [facility] Amylase [Catalytic activity/Vol] 42 U/L 25 - 115 U/L [facility] AST [Catalytic activity/Vol] 34 U/L 0 - 45 U/L [facility] Bilirubin [Mass/Vol] 0.8 mg/dL 0 - 1.3 mg/dL [facility] Gamma glutamyl transferase [Catalytic activity/Vol] 28 U/L 11 - 51 U/L [facility] Interpretation and review of laboratory results Abnormal [facility] Protein [Mass/Vol] 6.5 g/dL 6 - 8 g/dL [facility] POC Troponin Ion 01-04-2019 Interpretation and review of laboratory results Normal [facility] Troponin I.cardiac [Mass/Vol] ng/mL <0.05 ng/mL [facility] XR CHEST AP/PA AND LATon Interface, [...] IMPRESSION: Nonacute two-view chest. Workstation ID: [id number] [facility] EXAMINATION: XR CHES T AP/PA AND [...] The diaphragm and bony elements are intact. [facility] Nonacute two-view ch est. Workstation ID: [id number] [facility] NT PRO BNPon 12-26-2018 Interpretation and review of laboratory results Normal [facility] Natriuretic peptide.B prohormone N-Terminal [Mass/Vol] 58 pg/mL 0 - 300 pg/mL [facility] Comment on above: Please note referenc e range change as of 01/30/18. [employer] Study Cut-offs Rule In: < /= 50 Years >450 pg/mL 51 Years - 75 Years >900 pg/mL 76 Years - 99 Years >1800 pg/mL Rule Out: All patients <300 pg/mL [facility] MR Cardiac (Furniture Polisher Juana heller) w/Velocity Flowon 12-25-2018 [facility] CMR Repor t Name: FERNANDO HELTON [...] Hypo 51-75% Apical Lateral Mild/Mod Hypo 51-75% Delta Severe Hypo 51-75% + +--- + ------+ [...] m^2 SETUP TYPE: Clinical INPATIENT: No LOCATION: [facility] INCOMPLETE SCAN: No REASON(S) FOR SCAN: Cardiomyopathy, Thrombus (evaluate for) REFERRING PHYSICIAN: PATRICIA LOUIS ATTENDING PHYSICIAN: GILMER EDUARDO TECHNOLOGIST: Vidhi Escobar Patient Account [id number] CPT Codes 36626 ICD10 Codes I50.22 Report generated by [employer], a product of [employer] Interface, Rad In CV Properties - 12/25/2018 5:14 PM EST [facility] CMR Report Name: FERNANDO HELTON : [...] Hypo 51-75% Apical Lateral Mild/Mod Hypo 51-75% Delta Severe Hypo 51-75% + +--- + ------+ [...] m^2 SETUP TYPE: Clinical INPATIENT: No LOCATION: [facility] INCOMPLETE SCAN: No REASON(S) FOR SCAN: Cardiomyopathy, Thrombus (evaluate for) REFERRING PHYSICIAN: PATRICIA LOUIS ATTENDING PHYSICIAN: GILMER EDUARDO TECHNOLOGIST: Vidhi Escobar Patient Account [id number] CPT Codes 51447 ICD10 Codes I50.22 Report generated by [employer], a product of [employer] [facility] ECHOCARDIOGRAM 2D COMPLETEon 12-10-2018 Transthoracic Echocardiogram Patient: KYLE Hernandez [facility] Rec#: [id number] (Age): 1970(48y) Height: 167.64(cm)/65(i Study Date: 12/10/2018 Weight: 112.49(kg)/247( Room#: BSA: [id number] Type: Loc: Sex: M Reading: Magda Durán MD Referring: Moises Patel M.D Ordering ProvidTruax, Kathryn CNS Scientist Propagator: Mariann Syed RN RDCS History: COPD. Coronary [...] at 12/10/2018 17:14:17 by: Magda Durán MD [facility] Interface, Rad In [facility] Echopacs - 12/10/2018 5:28 PM EDT Transthoracic Echocardiogram Patient: KYLE Hernandez [facility] Rec#: [id number] (Age): 1970(48y) Height: 167.64(cm)/65(i Study Date: 12/10/2018 Weight: 112.49(kg)/247( Room#: BSA: [id number] Type: Loc: Sex: M Reading: Magda Durán MD Referring: Moises Patel M.D Ordering Patricia Keller [facility] Scientist Propagator: Mariann Syed RN RDCS History: COPD. Coronary [...] at 12/10/2018 17:14:17 by: Magda Durán MD [facility] EKGon 09-28-2018 Ordered by an unspec ified provider. [facility] CBC WITH AUTO DIFFERENTIALon 09-27-2018 Basophils (Bld) [#/Vol] 0.09 10*3/uL [facility] Basophils/100 WBC (Bld) 0.7 % [facility] Eosinophils (Bld) [#/Vol] 0.82 10*3/uL High [facility] Eosinophils/100 WBC (Bld) 6.2 % [facility] Erythrocyte distribution width (RBC) [Entitic vol] 14.7 % 11.6 - 14.8 % [facility] Hematocrit (Bld) [Volume fraction] 44.7 % 41 - 53 % [facility] Hemoglobin (Bld) [Mass/Vol] 14.7 g/dL 13.5 - 17.5 g/dL [facility] Immature granulocytes (Bld) [#/Vol] 0.08 10*3/uL [facility] Immature granulocytes/100 WBC (Bld) 0.60 % [facility] Comment on above: The IG parameter is the percentage of metamyelocytes, myelocytes, and promyelocytes. Interpretation and review of laboratory results Abnormal [facility] Lymphocytes (Bld) [#/Vol] 4.45 10*3/uL High [facility] Lymphocytes/100 WBC (Bld) 33.4 % [facility] MCH (RBC) [Entitic mass] 27.6 pg 26 - 34 pg [facility] MCHC (RBC) [Mass/Vol] 32.9 g/dL 31 - 3 7 g/dL [facility] MCV (RBC) [Entitic vol] 83.9 fL 80 - 100 fL [facility] Monocytes (Bld) [#/Vol] 1.10 10*3/uL [facility] Monocytes/100 WBC (Bld) 8.3 % [facility] Neutrophils (Bld) [#/Vol] 6.79 10*3/uL [facility] Neutrophils/100 WBC (Bld) 50.8 % [facility] Nucleated RBC (Bld) [#/Vol] 0.00 10*3/uL [facility] Nucleated RBC/100 WBC (Bld) [Ratio] 0.0 % [facility] Platelet mean volume (Bld) [Entitic vol] 10.6 fL 9 - 15.5 fL [facility] Platelets (Bld) [#/Vol] 288 10*3/uL [facility] RBC (Bld) [#/Vol] 5.33 10*6/uL [facility] ealth WBC (Bld) [#/Vol] 13.33 10*3/uL [facility] ECG 12-LEADon 09-27-2018 Atrial Rate 90 BPM [facility] P [place] 62 degrees [facility] P-R Interval 164 ms [facility] Q-T Interval 348 ms [facility] QRS Duration 94 ms [facility] QTC Calculation (Bezet) 425 ms [facility] R [place] 0 degrees [facility] T [place] 72 degrees [facility] Ventricular Rate 90 BPM [facility] th Normal sinus rhythm Low voltage QRS Cannot rule out Anteroseptal infarct , age undetermined Abnormal ECG ECG Cart Interpretation see physician note for interpretation. Confirmed by Brandy Kc ([id number]) on 09/27/2018 8:20:21 PM [facility] Nathanael Valencia MD 09/27/2018 10:00 PM ECG 12 Lead Date/Time: 09/27/2018 7:16 PM Performed by: Nathanael Valencia MD Authorized by: Nathanael Valencia MD Comparison: not compared with previous ECG Rhythm: sinus rhythm BPM: 90 Conduction: conduction normal ST Segments: ST segments normal T Waves: T waves normal Clinical impression: non-specific ECG Comments: No acute ischemic changes [facility] POC B-type natriuretic pepti de (BNP)on 09-27-2018 Interpretation and review of laboratory results Normal [facility] Natriuretic peptide B (Bld) [Mass/Vol] 19.0 pg/mL <100 [facility] POC Basic Metabolic Panelon 09-27-2018 Calcium [Mass/Vol] 9.5 mg/dL 8.4 - 10. 2 mg/dL [facility] Chloride [Moles/Vol] 106 mmol/L 98 - 10 8 mmol/L [facility] CO2 [Moles/Vol] 25 mmol/L 21 - 32 mmol/L [facility] Creatinine [Mass/Vol] 1.0 mg/dL 0.5 - 1.3 mg/dL [facility] Glucose [Mass/Vol] 140 mg/dL High 65 - 99 mg/dL [facility] Interpretation and review of laboratory results Abnormal [facility] Potassium [Moles/Vol] 3.4 mmol/L Low 3.5 - 5.1 mmol/L [facility] Sodium [Moles/Vol] 139 mmol/L 135 - 145 mmol/L [facility] Urea nitrogen [Mass/Vol] 20 mg/dL 8 - 25 mg/dL [facility] POC CBC and Differentialon 0 09-27-2018 Comment See Comment Critically abnormal (none) [facility] Comment on above: CRITICAL. CBCD reord ered and sent to . Possible presence of immature granulocytes present. Automated differential not reported. Erythrocyte distribution width (RBC) [Entitic vol] 15.4 % High 11.6 - 14.8 % [facility] Hematocrit (Bld) [Volume fraction] 45.1 % 41 - 53 % [facility] Hemoglobin (Bld) [Mass/Vol] 15.0 g/dL 13.5 - 17.5 g/dL [facility] Interpretation and review of laboratory results Abnormal [facility] MCH (RBC) [Entitic mass] 28.5 pg 26 - 34 pg [facility] MCHC (RBC) [Mass/Vol] 33.3 g/dL 31 - 3 7 g/dL [facility] MCV (RBC) [Entitic vol] 85.6 fL 80 - 100 fL [facility] Platelet mean volume (Bld) [Entitic vol] 10.4 fL 9 - 15.5 fL [facility] Platelets (Bld) [#/Vol] 285 10*3/uL [facility] RBC (Bld) [#/Vol] 5.27 10*6/uL [facility] ealth WBC (Bld) [#/Vol] 13.50 10*3/uL [facility] POC D-dimeron 09-27-2018 Fibrin D-dimer DDU (PPP) [Mass/Vol] <100 <350 ng/mL DDU [facility] Interpretation and review of laboratory results Normal [facility] A D-Dimer concentrat ion of <350 [...] normal patients are less than 400 ng/ml. [facility] POC Troponin Ion 09-27-2018 Interpretation and review of laboratory results Normal [facility] Troponin I.cardiac [Mass/Vol] ng/mL <0.05 ng/mL [facility] Interpretation and review of laboratory results Normal [facility] Troponin I.cardiac [Mass/Vol] ng/mL <0.05 ng/mL [facility] XR Chest 1 Viewon 09-27-2018 Negative acute lorin ble chest. [employer] Workstation ID: [id number] [facility] EXAMINATION: XR CHES T PA/AP HISTORY: chest pain COMPARISON: Correlation is made with previous single-view chest 01/08/2018. FINDINGS: Portable AP view of the chest is provided. The cardiomediastinal silhouette is stable. A coronary stent is noted. Lungs are free of focal infiltrate. There is no pleural effusion or pneumothorax present. Bones appear unremarkable. [facility] Interface, Rad In Fu ji Speechq [...] acute portable chest. [employer] Workstation ID: [id number] [facility] CBC with Diffon 01-09-2018 Basophils #/vol (Bld) 0.1 K/mcL Normal 0-0.2 [facility] Comment on above: Performed By: #### F SBNP #### Unless otherwise noted, all testing performed by [place] [phone] CLIA: [id number] [employer] Apprentice: Twin Marley M.D. Basophils/100 WBC (Bld) 1.2 % Normal [facility] Comment on above: Performed By: #### F SBNP #### Unless otherwise noted, all testing performed by [place] [phone] CLIA: [id number] [employer] Apprentice: Twin Marley M.D. Eosinophils #/vol (Bld) 0.5 K/mcL Normal 0-0.5 [facility] Comment on above: Performed By: #### F SBNP #### Unless otherwise noted, all testing performed by [place] [phone] CLIA: [id number] [employer] Apprentice: Twin Marley M.D. Eosinophils/100 WBC (Bld) 4.4 % Normal [facility] Comment on above: Performed By: #### F SBNP #### Unless otherwise noted, all testing performed by [place] [address] CLIA: [id number] [employer] Apprentice: Twin Marley M.D. Erythrocyte distribution width Ratio (RBC) 14.8 % High 10-14.3 [facility] Comment on above: Performed By: #### F SBNP #### Unless otherwise noted, all testing performed by [place] [address] CLIA: [id number] [employer] Maker Apprentice: Twin Marley M.D. Hematocrit Volume Fraction (Bld) 44.7 % Normal 37.9-49.2 [facility] Comment on above: Performed By: #### F SBNP #### Unless otherwise noted, all testing performed by [place] [address] CLIA: [id number] G[employer] Maker Apprentice: Twin Marley M.D. Hemoglobin mass conc (Bld) 14.7 g/dL Normal 12.9-16.9 [facility] Comment on above: Performed By: #### F SBNP #### Unless otherwise noted, all testing performed by [place] [address] CLIA: [id number] Gauge Maker Apprentice: Twin Marley M.D. Lymphocytes #/vol (Bld) 4.4 K/mcL High 0.9-3.6 [facility] Comment on above: Performed By: #### F SBNP #### Unless otherwise noted, all testing performed by [place] [address] CLIA: [id number] Gauge Maker Apprentice: Twin Marley M.D. Lymphocytes/100 WBC (Bld) 38.3 % Normal [facility] Comment on above: Performed By: #### F SBNP #### Unless otherwise noted, all testing performed by [place] [address] CLIA: [id number] Gauge Maker Apprentice: Twin Marley M.D. MCH Entitic mass (RBC) 27.7 pg Normal 27.7-34.6 [facility] Comment on above: Performed By: #### F SBNP #### Unless otherwise noted, all testing performed by [place] [address] CLIA: [id number] Gauge Maker Apprentice: Twin Marley M.D. MCHC mass conc (RBC) 32.8 g/dL Low 32.9-35.5 [facility] Comment on above: Performed By: #### F SBNP #### Unless otherwise noted, all testing performed by [place] [phone] CLIA: [id number] Gauge Maker Apprentice: Twin Marley M.D. MCV Entitic volume (RBC) 84.5 fL Normal 82.8-99.3 [facility] Comment on above: Performed By: #### F SBNP #### Unless otherwise noted, all testing performed by [place] [phone] CLIA: [id number] Gauge Maker Apprentice: Twin Marley M.D. Monocytes #/vol (Bld) 0.8 K/mcL High 0.2-0.6 [facility] Comment on above: Performed By: #### F SBNP #### Unless otherwise noted, all testing performed by [place] [phone] CLIA: [id number] G[employer] Maker Apprentice: Twin Marley M.D. Monocytes/100 WBC (Bld) 6.6 % Normal [facility] Comment on above: Performed By: #### F SBNP #### Unless otherwise noted, all testing performed by [place] [address] CLIA: [id number] Gauge Maker Apprentice: Twin Marley M.D. Neutrophils #/vol (Bld) 5.7 K/mcL Normal 1.4-6.8 [facility] Comment on above: Performed By: #### F SBNP #### Unless otherwise noted, all testing performed by [place] [address] CLIA: [id number] Gauge Maker Apprentice: Twin Marley M.D. Platelet mean volume Entitic volume (Bld) 8.7 fL Normal 6.6-10.8 [facility] Comment on above: Performed By: #### F SBNP #### Unless otherwise noted, all testing performed by [place] [address] CLIA: [id number] Gauge Maker Apprentice: Twin Marley M.D. Platelets #/vol (Bld) 266 K/mcL Normal 139-354 [facility] Comment on above: Performed By: #### F SBNP #### Unless otherwise noted, all testing performed by [place] [address] CLIA: [id number] Gauge Maker Apprentice: Twin Marley M.D. RBC #/vol (Bld) 5.30 M/mcL Normal 4.0-5.5 [facility] Comment on above: Performed By: #### F SBNP #### Unless otherwise noted, all testing performed by [place] [address] CLIA: [id number] Gauge Maker Apprentice: Twin Marley M.D. Segmented Neut % 49.5 % Normal [facility] Comment on above: Performed By: #### F SBNP #### Unless otherwise noted, all testing performed by [place] [address] CLIA: [id number] Gauge Maker Apprentice: Twin Marley M.D. WBC #/vol (Bld) 11.6 K/mcL High 3.6-10.4 [facility] Comment on above: Performed By: #### F SBNP #### Unless otherwise noted, all testing performed by [place] [phone] CLIA: [id number] Gauge Maker Apprentice: Twin Marley M.D. CHEMG (Basic Metabolic and M g)on 01-09-2018 Calcium mass conc 8.4 mg/dL Normal 8.4-10.2 [facility] Comment on above: Performed By: #### F SBNP #### Unless otherwise noted, all testing performed by [place] [phone] CLIA: [id number] Gauge Maker Apprentice: Twin Marley M.D. Chloride molar conc 103 mmol/L Normal 98-108 [facility] Comment on above: Performed By: #### F SBNP #### Unless otherwise noted, all testing performed by [place] [address] CLIA: [id number] Gauge Maker Apprentice: Twin Marley M.D. CO2 molar conc 27 mmol/L Normal 21-32 [facility] Comment on above: Performed By: #### F SBNP #### Unless otherwise noted, all testing performed by [place] [address] CLIA: [id number] Gauge Maker Apprentice: Twin Marley M.D. Creatinine mass conc 1.14 mg/dL Normal 0.50-1.30 [facility] Comment on above: Performed By: #### F SBNP #### Unless otherwise noted, all testing performed by [place] [address] CLIA: [id number] Gauge Maker Apprentice: Twin Marley M.D. GFR/1.73 sq M predicted among blacks MDRD vol rate/area (S/P/Bld) mL/min/{1.73_m2} Normal [facility] Comment on above: Result Comment: Afri can Singaporean GFR Calc Performed By: #### F SBNP #### Unless otherwise noted, all testing performed by [place] [address] CLIA: [id number] Gauge Maker Apprentice: Twin Marley M.D. GFR/1.73 sq M predicted among non-blacks MDRD vol rate/area (S/P/Bld) mL/min/{1.73_m2} Normal [facility] Comment on above: Result Comment: Non- GFR [...] Unless otherwise noted, all testing performed by [place] [address] CLIA: [id number] Gauge Maker Apprentice: Twin Marley M.D. Glucose mass conc 102 mg/dL High 70-99 [facility] Comment on above: Result Comment: This test result might be falsely depressed or falsely elevated on samples drawn from patients taking Sulfasalazine and Sulfapyridine. Venipuncture should occur prior to taking either of these drugs. Performed By: #### F SBNP #### Unless otherwise noted, all testing performed by [place] [address] CLIA: [id number] Gauge Maker Apprentice: Twin Marley M.D. Magnesium mass conc 2.2 mg/dL Normal 1.6-2.4 [facility] Comment on above: Performed By: #### F SBNP #### Unless otherwise noted, all testing performed by [place] [phone] CLIA: [id number] Gauge Maker Apprentice: Twin Marley M.D. Potassium molar conc 4.2 mmol/L Normal 3.5-5.1 [facility] Comment on above: Performed By: #### F SBNP #### Unless otherwise noted, all testing performed by [place] [phone] CLIA: [id number] Gauge Maker Apprentice: Twin Marley M.D. Sodium molar conc 138 mmol/L Normal 135-145 [facility] Comment on above: Performed By: #### F SBNP #### Unless otherwise noted, all testing performed by [place] [address] CLIA: [id number] Gauge Maker Apprentice: Twin Marley M.D. Urea nitrogen mass conc 20 mg/dL Normal 8-25 [facility] Comment on above: Performed By: #### F SBNP #### Unless otherwise noted, all testing performed by [place] [address] CLIA: [id number] Gauge Maker Apprentice: Twin Marley M.D. Cardiac Troponin-Ion 018 Troponin I.cardiac mass conc No Biomarker evidence of myocardial injury within the past 14 hours. Normal [facility] Comment on above: Performed By: #### F SCBC #### Unless otherwise noted, all testing performed by [place] [address] CLIA: [id number] Gauge Maker Apprentice: Twin Marley M.D. Troponin I.cardiac mass conc ng/mL Normal < 45.0 [facility] Comment on above: Result Comment: [...] Unless otherwise noted, all testing performed by [place] [address] CLIA: [id number] Gauge Maker Apprentice: Twin Marley M.D. Partial Thromboplastin Timeo n 01-09-2018 aPTT Coag time (Bld) 48 s High 23.0-34.0 [facility] Comment on above: Result Comment: Sugg ested therapeutic range for PTT is 68-104 sec. Performed By: #### F SBNP #### Unless otherwise noted, all testing performed by [place] [address] CLIA: [id number] Gauge Maker Apprentice: Twin Marley M.D. aPTT Coag time (Bld) 39 s High 23.0-34.0 [facility] Comment on above: Result Comment: Sugg ested therapeutic range for PTT is 68-104 sec. Performed By: #### F SCBC #### Unless otherwise noted, all testing performed by [place] [address] CLIA: [id number] Gauge Maker Apprentice: Twin Marley M.D. Protimeon 01-09-2018 INR Coag RelTime (PPP) 0.94 {INR} Normal [facility] Comment on above: Result Comment: [employer] recommended therapeutic range for Warfarin (Coumadin) therapy goals: PROPHYLAXIS/TREATMENT of: INR Venous Thrombosis, Pulmonary Embolism 2.0-3.0 Prevention of VTE (Orthopedic Surgery) 2.0-3.0 Atrial Fibrillation 2.0-3.0 Myocardial Infarction 2.0-3.0 Mechanical Prosthetic Heart Valves (Aortic position) 2.0-3.0 Mechanical Prosthetic Heart Valves (Mitral Position) 2.5-3.5 [employer] evidence-based clinical practice guidelines. CHEST. 2012 (9th ed) Performed By: #### F SBNP #### Unless otherwise noted, all testing performed by [place] [address] CLIA: [id number] Gauge Maker Apprentice: Twin Marley M.D. Prothrombin time (PT) Coag time (PPP) 12.2 s Normal 11.8-14.3 [facility] Comment on above: Performed By: #### F SBNP #### Unless otherwise noted, all testing performed by [place] [address] CLIA: [id number] Gauge Maker Apprentice: Twin Marley M.D. BLDPATHon 01-08-2018 BLDPATH [id number] Patient Name: FERNANDO HELTON Source Peripheral Blood Diagnosis Absolute lymphocytosis present. Repeat CBC in 12 months or earlier if clinically indicated. If lymphocytosis persists, suggest flow cytometry to rule out a lymphoproliferative disorder. Electronically Signed By Hematology Department , Testing performed at [facility] (Case signed 01/09/2018) Normal [facility] Blood Smear Reviewon 018 Blood Smear Review See Pathology Report. Normal [facility] Comment on above: Performed By: #### F SCBC #### Unless otherwise noted, all testing performed by [place] [address] CLIA: [id number] Gauge Maker Apprentice: Twin Marley M.D. CBC with Diffon 01-08-2018 Band 1.9 % Normal 0-5 [facility] Comment on above: Performed By: #### F SBMET #### Unless otherwise noted, all testing performed by [place] [address] CLIA: [id number] Gauge Maker Apprentice: Twin Marley M.D. Basophils #/vol (Bld) 0.0 K/mcL Normal 0-0.2 [facility] Comment on above: Performed By: #### F SBMET #### Unless otherwise noted, all testing performed by [place] [address] CLIA: [id number] Gauge Maker Apprentice: Twin Marley M.D. Basophils/100 WBC (Bld) 0.0 % Normal [facility] Comment on above: Performed By: #### F SBMET #### Unless otherwise noted, all testing performed by [place] [address] CLIA: [id number] Gauge Maker Apprentice: Twin Marley M.D. Eosinophils #/vol (Bld) 0.6 K/mcL High 0-0.5 [facility] Comment on above: Performed By: #### F SBMET #### Unless otherwise noted, all testing performed by [place] [address] CLIA: [id number] Gauge Maker Apprentice: Twin Marley M.D. Eosinophils/100 WBC (Bld) 3.9 % Normal [facility] Comment on above: Performed By: #### F SBMET #### Unless otherwise noted, all testing performed by [place] [address] CLIA: [id number] Gauge Maker Apprentice: Twin Marley M.D. Erythrocyte distribution width Ratio (RBC) 15.1 % High 10-14.3 [facility] Comment on above: Performed By: #### F SBMET #### Unless otherwise noted, all testing performed by [place] [phone] CLIA: [id number] Gauge Maker Apprentice: Twin Marley M.D. Hematocrit Volume Fraction (Bld) 44.3 % Normal 37.9-49.2 [facility] Comment on above: Performed By: #### F SBMET #### Unless otherwise noted, all testing performed by [place] [phone] CLIA: [id number] Gauge Maker Apprentice: Twin Marley M.D. Hemoglobin mass conc (Bld) 14.5 g/dL Normal 12.9-16.9 [facility] Comment on above: Performed By: #### F SBMET #### Unless otherwise noted, all testing performed by [place] [phone] CLIA: [id number] Gauge Maker Apprentice: Twin Marley M.D. Lymphocytes #/vol (Bld) 5.1 K/mcL High 0.9-3.6 [facility] Comment on above: Performed By: #### F SBMET #### Unless otherwise noted, all testing performed by [place] [address] CLIA: [id number] Gauge Maker Apprentice: Twin Marley M.D. Lymphocytes/100 WBC (Bld) 35.9 % Normal [facility] Comment on above: Performed By: #### F SBMET #### Unless otherwise noted, all testing performed by [place] [address] CLIA: [id number] Gauge Maker Apprentice: Twin Marley M.D. MCH Entitic mass (RBC) 27.7 pg Normal 27.7-34.6 [facility] Comment on above: Performed By: #### F SBMET #### Unless otherwise noted, all testing performed by [place] [phone] CLIA: [id number] Gauge Maker Apprentice: Twin Marley M.D. MCHC mass conc (RBC) 32.6 g/dL Low 32.9-35.5 [facility] Comment on above: Performed By: #### F SBMET #### Unless otherwise noted, all testing performed by [place] [address] CLIA: [id number] Gauge Maker Apprentice: Twin Marley M.D. MCV Entitic volume (RBC) 84.9 fL Normal 82.8-99.3 [facility] Comment on above: Performed By: #### F SBMET #### Unless otherwise noted, all testing performed by [place] [address] CLIA: [id number] Gauge Maker Apprentice: Twin Marley M.D. Metamyelocytes/100 WBC (Bld) 1.9 % High 0 [facility] Comment on above: Performed By: #### F SBMET #### Unless otherwise noted, all testing performed by [place] [phone] CLIA: [id number] Gauge Maker Apprentice: Twin Marley M.D. Monocytes #/vol (Bld) 0.6 K/mcL Normal 0.2-0.6 [facility] Comment on above: Performed By: #### F SBMET #### Unless otherwise noted, all testing performed by [place] [phone] CLIA: [id number] Gauge Maker Apprentice: Twin Marley M.D. Monocytes/100 WBC (Bld) 3.9 % Normal [facility] Comment on above: Performed By: #### F SBMET #### Unless otherwise noted, all testing performed by [place] [phone] CLIA: [id number] Gauge Maker Apprentice: Twin Marley M.D. Myelocyte 1.0 % High 0 [facility] Comment on above: Performed By: #### F SBMET #### Unless otherwise noted, all testing performed by [place] [phone] CLIA: [id number] Gauge Maker Apprentice: Twin Marley M.D. Neutrophils #/vol (Bld) 8.1 K/mcL High 1.4-6.8 [facility] Comment on above: Performed By: #### F SBMET #### Unless otherwise noted, all testing performed by [place] [phone] CLIA: [id number] Gauge Maker Apprentice: Twin Marley M.D. Platelet mean volume Entitic volume (Bld) 8.8 fL Normal 6.6-10.8 [facility] Comment on above: Performed By: #### F SBMET #### Unless otherwise noted, all testing performed by [place] [address] CLIA: [id number] Gauge Maker Apprentice: Twin Marley M.D. Platelets #/vol (Bld) 260 K/mcL Normal 139-354 [facility] Comment on above: Performed By: #### F SBMET #### Unless otherwise noted, all testing performed by [place] [phone] CLIA: [id number] Gauge Maker Apprentice: Twin Marley M.D. RBC #/vol (Bld) 5.22 M/mcL Normal 4.0-5.5 [facility] Comment on above: Performed By: #### F SBMET #### Unless otherwise noted, all testing performed by [place] [phone] CLIA: [id number] Gauge Maker Apprentice: Twin Marley M.D. Segmented Neut % 51.5 % Normal [facility] Comment on above: Result Comment: Carline mccollum performed. Performed By: #### F SBMET #### Unless otherwise noted, all testing performed by [place] [phone] CLIA: [id number] Gauge Maker Apprentice: Twin Marley M.D. WBC #/vol (Bld) 14.3 K/mcL High 3.6-10.4 [facility] Comment on above: Performed By: #### F SBMET #### Unless otherwise noted, all testing performed by [place] [address] CLIA: [id number] Gauge Maker Apprentice: Twin Marley M.D. CHEST (ONE VIEW ONLY)on 12-14 CHEST (ONE VIEW ONLY) Final Report Accession No: [id number] Performed: Jan 08 2018 6:04PM Examination: [...] MURPHY M.D. Trans: n/a : cc: Normal [facility] Cardiac Troponin-Ion 018 Troponin I.cardiac mass conc ng/mL Normal < 45.0 [facility] Comment on above: Result Comment: [...] Unless otherwise noted, all testing performed by [place] [address] CLIA: [id number] Gauge Maker Apprentice: Twin Marley M.D. Troponin I.cardiac mass conc No Biomarker evidence of myocardial injury within the past 14 hours. Normal [facility] Comment on above: Performed By: #### F SCBC #### Unless otherwise noted, all testing performed by [place] [address] CLIA: [id number] Gauge Maker Apprentice: Twin Marley M.D. Troponin I.cardiac mass conc ng/mL Normal < 45.0 [facility] Comment on above: Result Comment: [...] Unless otherwise noted, all testing performed by [place] [address] CLIA: [id number] Gauge Maker Apprentice: Twin Marley M.D. [facility] 01-08-2018 Albumin mass conc 3.3 g/dL Normal 3.2-5.2 [facility] Comment on above: Performed By: #### F SCBC #### Unless otherwise noted, all testing performed by [place] [address] CLIA: [id number] Gauge Maker Apprentice: Twin Marley M.D. ALP enzyme act/vol 61 U/L Normal 40-150 [facility] Comment on above: Performed By: #### F SCBC #### Unless otherwise noted, all testing performed by [place] [address] CLIA: [id number] Gauge Maker Apprentice: Twin Marley M.D. ALT enzyme act/vol 41 U/L Normal 14-65 [facility] Comment on above: Result Comment: This test result might be falsely depressed or falsely elevated on samples drawn from patients taking Sulfasalazine and Sulfapyridine. Venipuncture should occur prior to taking either of these drugs. Performed By: #### F SCBC #### Unless otherwise noted, all testing performed by [place] [address] CLIA: [id number] Gauge Maker Apprentice: Twin Marley M.D. AST enzyme act/vol 19 U/L Normal 0-45 [facility] Comment on above: Result Comment: This test result might be falsely depressed or falsely elevated on samples drawn from patients taking Sulfasalazine and Sulfapyridine. Venipuncture should occur prior to taking either of these drugs. Performed By: #### F SCBC #### Unless otherwise noted, all testing performed by [place] [address] CLIA: [id number] Gauge Maker Apprentice: Twin Marley M.D. Bilirubin mass conc 0.8 mg/dL Normal 0.3-1.2 [facility] Comment on above: Performed By: #### F SCBC #### Unless otherwise noted, all testing performed by [place] [address] CLIA: [id number] Gauge Maker Apprentice: Twin Marley M.D. Calcium mass conc 8.4 mg/dL Normal 8.4-10.2 [facility] Comment on above: Performed By: #### F SCBC #### Unless otherwise noted, all testing performed by [place] [address] CLIA: [id number] Gauge Maker Apprentice: Twin Marley M.D. Chloride molar conc 107 mmol/L Normal 98-108 [facility] Comment on above: Performed By: #### F SCBC #### Unless otherwise noted, all testing performed by [place] [address] CLIA: [id number] Gauge Maker Apprentice: Twin Marley M.D. CO2 molar conc 26 mmol/L Normal 21-32 [facility] Comment on above: Performed By: #### F SCBC #### Unless otherwise noted, all testing performed by [place] [address] CLIA: [id number] Gauge Maker Apprentice: Twin Marley M.D. Creatinine mass conc 1.10 mg/dL Normal 0.50-1.30 [facility] Comment on above: Performed By: #### F SCBC #### Unless otherwise noted, all testing performed by [place] [phone] CLIA: [id number] Gauge Maker Apprentice: Twin Marley M.D. GFR/1.73 sq M predicted among blacks MDRD vol rate/area (S/P/Bld) mL/min/{1.73_m2} Normal [facility] Comment on above: Result Comment: Afri can [employer] GFR Calc Performed By: #### F SCBC #### Unless otherwise noted, all testing performed by [place] [address] CLIA: [id number] Gauge Maker Apprentice: Twin Marley M.D. GFR/1.73 sq M predicted among non-blacks MDRD vol rate/area (S/P/Bld) mL/min/{1.73_m2} Normal [facility] Comment on above: Result Comment: Non- GFR [...] Unless otherwise noted, all testing performed by [address] [place], [place] [address] CLIA: [id number] Gauge Maker Apprentice: Twin Marley M.D. Glucose mass conc 96 mg/dL Normal 70-99 [facility] Comment on above: Result Comment: This test result might be falsely depressed or falsely elevated on samples drawn from patients taking Sulfasalazine and Sulfapyridine. Venipuncture should occur prior to taking either of these drugs. Performed By: #### F SCBC #### Unless otherwise noted, all testing performed by [place] [address] CLIA: [id number] Gauge Maker Apprentice: Twin Marley M.D. Potassium molar conc 3.9 mmol/L Normal 3.5-5.1 [facility] Comment on above: Performed By: #### F SCBC #### Unless otherwise noted, all testing performed by [place] [address] CLIA: [id number] Gauge Maker Apprentice: Twin Marley M.D. Protein mass conc 6.6 g/dL Normal 6.0-8.0 [facility] Comment on above: Performed By: #### F SCBC #### Unless otherwise noted, all testing performed by [place] [address] CLIA: [id number] Gauge Maker Apprentice: Twin Marley M.D. Sodium molar conc 141 mmol/L Normal 135-145 [facility] Comment on above: Performed By: #### F SCBC #### Unless otherwise noted, all testing performed by [place] [address] CLIA: [id number] Gauge Maker Apprentice: Twin Marley M.D. Urea nitrogen mass conc 20 mg/dL Normal 8-25 [facility] Comment on above: Performed By: #### F SCBC #### Unless otherwise noted, all testing performed by [place] [address] CLIA: [id number] Gauge Maker Apprentice: Twin Marley M.D. Magnesiumon 01-08-2018 Magnesium mass conc 2.0 mg/dL Normal 1.6-2.4 [facility] Comment on above: Performed By: #### F SCBC #### Unless otherwise noted, all testing performed by [place] [address] CLIA: [id number] Gauge Maker Apprentice: Twin Marley M.D. NT-Pro BNP, Serumon 01-09-20 18 Natriuretic peptide B mass conc (Bld) 143 pg/mL High 0-125 [facility] Comment on above: Performed By: #### F SCBC #### Unless otherwise noted, all testing performed by [place] [address] CLIA: [id number] Gauge Maker Apprentice: Twin Marley M.D. Partial Thromboplastin Timeo n 01-08-2018 aPTT Coag time (Bld) 40 s High 23.0-34.0 [facility] Comment on above: Result Comment: Rosemary sauceda therapeutic range for PTT is 68-104 sec. Performed By: #### F SBMET #### Unless otherwise noted, all testing performed by [place] [address] CLIA: [id number] Gauge Maker Apprentice: Twin Marley M.D. Protimeon 01-08-2018 INR Coag RelTime (PPP) 0.99 {INR} Normal [facility] Comment on above: Result Comment: [employer] recommended therapeutic range for Warfarin (Coumadin) therapy goals: PROPHYLAXIS/TREATMENT of: INR Venous Thrombosis, Pulmonary Embolism 2.0-3.0 Prevention of VTE (Orthopedic Surgery) 2.0-3.0 Atrial Fibrillation 2.0-3.0 Myocardial Infarction 2.0-3.0 Mechanical Prosthetic Heart Valves (Aortic position) 2.0-3.0 Mechanical Prosthetic Heart Valves (Mitral Position) 2.5-3.5 [employer] evidence-based clinical practice guidelines. CHEST. 2012 (9th ed) Performed By: #### F SBMET #### Unless otherwise noted, all testing performed by [place] [address] CLIA: [id number] Gauge Maker Apprentice: Twin Marley M.D. Prothrombin time (PT) Coag time (PPP) 12.7 s Normal 11.8-14.3 [facility] Comment on above: Performed By: #### F SBMET #### Unless otherwise noted, all testing performed by [place] [address] CLIA: [id number] Gauge Maker Apprentice: Twin Marley M.D. TSHon 01-08-2018 Thyrotropin Qn 2.26 uIU/mL Normal 0.270-4.20 0 [facility] Comment on above: Result Comment: Samp les from patients routinely receiving high dose biotin therapy (100-300 mg/day) may show falsely decreased results. Please correlate clinically. Please note reference range change as of 12/04/17. Performed By: #### F SCBC #### Unless otherwise noted, all testing performed by [place] [address] CLIA: [id number] Gauge Maker Apprentice: Twin Marley M.D. Basic Metabolic Panelon 12-14 Calcium mass conc 8.4 mg/dL Normal 8.4-10.2 [facility] Comment on above: Performed By: #### F SBMET #### Unless otherwise noted, all testing performed by [place] [address] CLIA: [id number] Gauge Maker Apprentice: Twin Marley M.D. Chloride molar conc 108 mmol/L Normal 98-108 [facility] Comment on above: Performed By: #### F SBMET #### Unless otherwise noted, all testing performed by [place] [address] CLIA: [id number] Gauge Maker Apprentice: Twin Marley M.D. CO2 molar conc 24 mmol/L Normal 21-32 [facility] Comment on above: Performed By: #### F SBMET #### Unless otherwise noted, all testing performed by [place] [address] CLIA: [id number] Gauge Maker Apprentice: Twin Marley M.D. Creatinine mass conc 1.14 mg/dL Normal 0.50-1.30 [facility] Comment on above: Performed By: #### F SBMET #### Unless otherwise noted, all testing performed by [place] [address] CLIA: [id number] Gauge Maker Apprentice: Twin Marley M.D. GFR/1.73 sq M predicted among blacks MDRD vol rate/area (S/P/Bld) mL/min/{1.73_m2} Normal [facility] Comment on above: Result Comment: Afri can [employer] GFR Calc Performed By: #### F SBMET #### Unless otherwise noted, all testing performed by [place] [address] CLIA: [id number] Gauge Maker Apprentice: Twin Marley M.D. GFR/1.73 sq M predicted among non-blacks MDRD vol rate/area (S/P/Bld) mL/min/{1.73_m2} Normal [facility] Comment on above: Result Comment: Non- GFR [...] Unless otherwise noted, all testing performed by [place] [address] CLIA: [id number] Gauge Maker Apprentice: Twin Marley M.D. Glucose mass conc 119 mg/dL High 70-99 [facility] Comment on above: Result Comment: This test result might be falsely depressed or falsely elevated on samples drawn from patients taking Sulfasalazine and Sulfapyridine. Venipuncture should occur prior to taking either of these drugs. Performed By: #### F SBMET #### Unless otherwise noted, all testing performed by [place] [address] CLIA: [id number] Gauge Maker Apprentice: Twin Marley M.D. Potassium molar conc 3.7 mmol/L Normal 3.5-5.1 [facility] Comment on above: Performed By: #### F SBMET #### Unless otherwise noted, all testing performed by [place] [address] CLIA: [id number] Gauge Maker Apprentice: Twin Marley M.D. Sodium molar conc 140 mmol/L Normal 135-145 [facility] Comment on above: Performed By: #### F SBMET #### Unless otherwise noted, all testing performed by [place] [address] CLIA: [id number] Gauge Maker Apprentice: Twin Marley M.D. Urea nitrogen mass conc 18 mg/dL Normal 8-25 [facility] Comment on above: Performed By: #### F SBMET #### Unless otherwise noted, all testing performed by [place] [address] CLIA: [id number] Gauge Maker Apprentice: Twin Marley M.D. DPATHon 09-24-2017 [facility] [id number] Patient Name: FERNANDO HELTON Source Peripheral Blood Diagnosis Absolute eosinophilia. Possible causes include allergic or drug reaction, cutaneous disorders, collagen vascular disease, parasite infection, pulmonary diseases including sarcoidosis, or underlying neoplasm. Suggest clinical correlation. Electronically Signed By Hematology Department , Testing performed at [facility] (Case signed 09/24/2017) Normal [facility] Basic Metabolic Panelon 09-12 Calcium mass conc 7.6 mg/dL Low 8.4-10.2 [facility] Comment on above: Performed By: #### P T #### Unless otherwise noted, all testing performed by [place] [address] CLIA: [id number] Gauge Maker Apprentice: Twin Marley M.D. Chloride molar conc 108 mmol/L Normal 98-108 [facility] Comment on above: Performed By: #### P T #### Unless otherwise noted, all testing performed by [place] [address] CLIA: [id number] Gauge Maker Apprentice: Twin Marley M.D. CO2 molar conc 27 mmol/L Normal 21-32 [facility] Comment on above: Performed By: #### P T #### Unless otherwise noted, all testing performed by [place] [address] CLIA: [id number] Gauge Maker Apprentice: Twin Marley M.D. Creatinine mass conc 1.13 mg/dL Normal 0.50-1.30 [facility] Comment on above: Performed By: #### P T #### Unless otherwise noted, all testing performed by [place] [address] CLIA: [id number] Gauge Maker Apprentice: Twin Marley M.D. GFR/1.73 sq M predicted among blacks MDRD vol rate/area (S/P/Bld) mL/min/{1.73_m2} Normal [facility] Comment on above: Result Comment: Afri can [place]an GFR Calc Performed By: #### P T #### Unless otherwise noted, all testing performed by [place] [address] CLIA: [id number] Gauge Maker Apprentice: Twin Marley M.D. GFR/1.73 sq M predicted among non-blacks MDRD vol rate/area (S/P/Bld) mL/min/{1.73_m2} Normal [facility] Comment on above: Result Comment: Non- GFR [...] Unless otherwise noted, all testing performed by [place] [address] CLIA: [id number] Gauge Maker Apprentice: Twin Marley M.D. Glucose mass conc 116 mg/dL High 70-99 [facility] Comment on above: Result Comment: This test result might be falsely depressed or falsely elevated on samples drawn from patients taking Sulfasalazine and Sulfapyridine. Venipuncture should occur prior to taking either of these drugs. Performed By: #### P T #### Unless otherwise noted, all testing performed by [place] [address] CLIA: [id number] Gauge Maker Apprentice: Twin Marley M.D. Potassium molar conc 3.9 mmol/L Normal 3.5-5.1 [facility] Comment on above: Performed By: #### P T #### Unless otherwise noted, all testing performed by [place] [address] CLIA: [id number] Gauge Maker Apprentice: Twin Marley M.D. Sodium molar conc 138 mmol/L Normal 135-145 [facility] Comment on above: Performed By: #### P T #### Unless otherwise noted, all testing performed by [place] [address] CLIA: [id number] Gauge Maker Apprentice: Twin Marley M.D. Urea nitrogen mass conc 17 mg/dL Normal 8-25 [facility] Comment on above: Performed By: #### P T #### Unless otherwise noted, all testing performed by [place] [address] CLIA: [id number] Gauge Maker Apprentice: Twin Marley M.D. Blood Smear Reviewon 018 Blood Smear Review See Pathology Report. Normal [facility] Comment on above: Performed By: #### F SBMET #### Unless otherwise noted, all testing performed by [place] [address] CLIA: [id number] Gauge Maker Apprentice: Twin Marley M.D. CBC with Diffon 09-24-2017 Basophils #/vol (Bld) 0.1 K/mcL Normal 0-0.2 [facility] Comment on above: Performed By: #### F SBMET #### Unless otherwise noted, all testing performed by [place] [address] CLIA: [id number] Gauge Maker Apprentice: Twin Marley M.D. Basophils/100 WBC (Bld) 0.8 % Normal [facility] Comment on above: Performed By: #### F SBMET #### Unless otherwise noted, all testing performed by [place] [phone] CLIA: [id number] Gauge Maker Apprentice: Twin Marley M.D. Eosinophils #/vol (Bld) 0.7 K/mcL High 0-0.5 [facility] Comment on above: Performed By: #### F SBMET #### Unless otherwise noted, all testing performed by [place] [address] CLIA: [id number] Gauge Maker Apprentice: Twin Marley M.D. Eosinophils/100 WBC (Bld) 8.0 % Normal [facility] Comment on above: Performed By: #### F SBMET #### Unless otherwise noted, all testing performed by [place] [address] CLIA: [id number] Gauge Maker Apprentice: Twin Marley M.D. Erythrocyte distribution width Ratio (RBC) 15.4 % High 10-14.3 [facility] Comment on above: Performed By: #### F SBMET #### Unless otherwise noted, all testing performed by [place] [address] CLIA: [id number] Gauge Maker Apprentice: Twin Marley M.D. Hematocrit Volume Fraction (Bld) 44.6 % Normal 37.9-49.2 [facility] Comment on above: Performed By: #### F SBMET #### Unless otherwise noted, all testing performed by [place] [address] CLIA: [id number] Gauge Maker Apprentice: Twin Marley M.D. Hemoglobin mass conc (Bld) 14.8 g/dL Normal 12.9-16.9 [facility] Comment on above: Performed By: #### F SBMET #### Unless otherwise noted, all testing performed by [place] [address] CLIA: [id number] Gauge Maker Apprentice: Twin Marley M.D. Lymphocytes #/vol (Bld) 3.2 K/mcL Normal 0.9-3.6 [facility] Comment on above: Performed By: #### F SBMET #### Unless otherwise noted, all testing performed by [place] [address] CLIA: [id number] Gauge Maker Apprentice: Twin Marley M.D. Lymphocytes/100 WBC (Bld) 35.8 % Normal [facility] Comment on above: Performed By: #### F SBMET #### Unless otherwise noted, all testing performed by [place] [address] CLIA: [id number] Gauge Maker Apprentice: Twin Marley M.D. MCH Entitic mass (RBC) 28.3 pg Normal 27.7-34.6 [facility] Comment on above: Performed By: #### F SBMET #### Unless otherwise noted, all testing performed by [place] [address] CLIA: [id number] Gauge Maker Apprentice: Twin Marley M.D. MCHC mass conc (RBC) 33.3 g/dL Normal 32.9-35.5 [facility] Comment on above: Performed By: #### F SBMET #### Unless otherwise noted, all testing performed by [place] [address] CLIA: [id number] Gauge Maker Apprentice: Twin Marley M.D. MCV Entitic volume (RBC) 84.9 fL Normal 82.8-99.3 [facility] Comment on above: Performed By: #### F SBMET #### Unless otherwise noted, all testing performed by [place] [phone] CLIA: [id number] Gauge Maker Apprentice: Twin Marley M.D. Monocytes #/vol (Bld) 0.7 K/mcL High 0.2-0.6 [facility] Comment on above: Performed By: #### F SBMET #### Unless otherwise noted, all testing performed by [place] [address] CLIA: [id number] Gauge Maker Apprentice: Twin Marley M.D. Monocytes/100 WBC (Bld) 7.7 % Normal [facility] Comment on above: Performed By: #### F SBMET #### Unless otherwise noted, all testing performed by [place] [address] CLIA: [id number] Gauge Maker Apprentice: Twin Marley M.D. Neutrophils #/vol (Bld) 4.2 K/mcL Normal 1.4-6.8 [facility] Comment on above: Performed By: #### F SBMET #### Unless otherwise noted, all testing performed by [place] [address] CLIA: [id number] Gauge Maker Apprentice: Twin Marley M.D. Platelet mean volume Entitic volume (Bld) 9.0 fL Normal 6.6-10.8 [facility] Comment on above: Performed By: #### F SBMET #### Unless otherwise noted, all testing performed by [place] [phone] CLIA: [id number] Gauge Maker Apprentice: Twin Marley M.D. Platelets #/vol (Bld) 280 K/mcL Normal 139-354 [facility] Comment on above: Performed By: #### F SBMET #### Unless otherwise noted, all testing performed by [place] [address] CLIA: [id number] Gauge Maker Apprentice: Twin Marley M.D. RBC #/vol (Bld) 5.25 M/mcL Normal 4.0-5.5 [facility] Comment on above: Performed By: #### F SBMET #### Unless otherwise noted, all testing performed by [place] [address] CLIA: [id number] Gauge Maker Apprentice: Twin Marley M.D. RBC morphology finding Nom (Bld) Normal Normal Normal [facility] Comment on above: Performed By: #### F SBMET #### Unless otherwise noted, all testing performed by [place] [address] CLIA: [id number] Gauge Maker Apprentice: Twin Marley M.D. Segmented Neut % 47.7 % Normal [facility] Comment on above: Result Comment: Smea r reviewed to verify automated differential> Performed By: #### F SBMET #### Unless otherwise noted, all testing performed by [place] [address] CLIA: [id number] Gauge Maker Apprentice: Twin Marley M.D. WBC #/vol (Bld) 8.9 K/mcL Normal 3.6-10.4 [facility] Comment on above: Performed By: #### F SBMET #### Unless otherwise noted, all testing performed by [place] [address] CLIA: [id number] Gauge Maker Apprentice: Twin Marley M.D. Cardiac Troponin-Ion 09-24-2 018 Troponin I.cardiac mass conc ng/mL Normal < 45.0 [facility] Comment on above: Result Comment: [...] Unless otherwise noted, all testing performed by [place] [address] CLIA: [id number] Gauge Maker Apprentice: Twin Marley M.D. Troponin I.cardiac mass conc No Biomarker evidence of myocardial injury within the past 14 hours. Normal [facility] Comment on above: Performed By: #### P T #### Unless otherwise noted, all testing performed by [place] [address] CLIA: [id number] Gauge Maker Apprentice: Twin Marley M.D. Troponin I.cardiac mass conc No Biomarker evidence of myocardial injury within the past 14 hours. Normal [facility] Comment on above: Performed By: #### P T #### Unless otherwise noted, all testing performed by [place] [address] CLIA: [id number] Gauge Maker Apprentice: Twin Marley M.D. Troponin I.cardiac mass conc ng/mL Normal < 45.0 [facility] Comment on above: Result Comment: [...] Unless otherwise noted, all testing performed by [place] [address] CLIA: [id number] Gauge Maker Apprentice: Twin Marley M.D. D-Dimeron 09-24-2017 D-Dimer < 0.27 Normal < .5 [facility] Comment on above: Result Comment: This test is intended for use in conjunction with a clinical pretest probability (PTP) assessment model to exclude pulmonary embolism (PE) and deep vein thrombosis (DVT) in outpatients suspected of PE or DVT. Performed By: #### F SBMET #### Unless otherwise noted, all testing performed by [place] [address] CLIA: [id number] Gauge Maker Apprentice: Twin Marley M.D. Magnesiumon 09-24-2017 Magnesium mass conc 2.2 mg/dL Normal 1.6-2.4 [facility] Comment on above: Performed By: #### P T #### Unless otherwise noted, all testing performed by [place] [address] CLIA: [id number] Gauge Maker Apprentice: Twin Marley M.D. Basic Metabolic Panelon 09-12 Calcium mass conc 8.3 mg/dL Low 8.4-10.2 [facility] Comment on above: Performed By: #### P T #### Unless otherwise noted, all testing performed by [place] [address] CLIA: [id number] Gauge Maker Apprentice: Twin Marley M.D. Chloride molar conc 109 mmol/L High 98-108 [facility] Comment on above: Performed By: #### P T #### Unless otherwise noted, all testing performed by [place] [address] CLIA: [id number] Gauge Maker Apprentice: Twin Marley M.D. CO2 molar conc 26 mmol/L Normal 21-32 [facility] Comment on above: Performed By: #### P T #### Unless otherwise noted, all testing performed by [place] [address] CLIA: [id number] Gauge Maker Apprentice: Twin Marley M.D. Creatinine mass conc 1.12 mg/dL Normal 0.50-1.30 [facility] Comment on above: Performed By: #### P T #### Unless otherwise noted, all testing performed [facility] [place] [address] CLIA: [id number] Gauge Maker Apprentice: Twin Marley M.D. GFR/1.73 sq M predicted among blacks MDRD vol rate/area (S/P/Bld) mL/min/{1.73_m2} Normal [facility] Comment on above: Result Comment: Afri can [place] GFR Calc Performed By: #### P T #### Unless otherwise noted, all testing performed by [place] [address] CLIA: [id number] Gauge Maker Apprentice: Twin Marley M.D. GFR/1.73 sq M predicted among non-blacks MDRD vol rate/area (S/P/Bld) mL/min/{1.73_m2} Normal [facility] Comment on above: Result Comment: Non- GFR [...] Unless otherwise noted, all testing performed by [place] [address] CLIA: [id number] Gauge Maker Apprentice: Twin Marley M.D. Glucose mass conc 94 mg/dL Normal 70-99 [facility] Comment on above: Result Comment: This test result might be falsely depressed or falsely elevated on samples drawn from patients taking Sulfasalazine and Sulfapyridine. Venipuncture should occur prior to taking either of these drugs. Performed By: #### P T #### Unless otherwise noted, all testing performed by [place] [address] CLIA: [id number] Gauge Maker Apprentice: Twin Marley M.D. Potassium molar conc 4.0 mmol/L Normal 3.5-5.1 [facility] Comment on above: Performed By: #### P T #### Unless otherwise noted, all testing performed by [place] [address] CLIA: [id number] Gauge Maker Apprentice: Twin Marley M.D. Sodium molar conc 140 mmol/L Normal 135-145 [facility] Comment on above: Performed By: #### P T #### Unless otherwise noted, all testing performed by [place] [address] CLIA: [id number] Gauge Maker Apprentice: Twin Marley M.D. Urea nitrogen mass conc 17 mg/dL Normal 8-25 [facility] Comment on above: Performed By: #### P T #### Unless otherwise noted, all testing performed by [place] [address] CLIA: [id number] Gauge Maker Apprentice: Twin Marley M.D. CBC w/o Diffon 09-23-2017 Erythrocyte distribution width Ratio (RBC) 15.1 % High 10-14.3 [facility] Comment on above: Performed By: #### P T #### Unless otherwise noted, all testing performed by [place] [address] CLIA: [id number] Gauge Maker Apprentice: Twin Marley M.D. Hematocrit Volume Fraction (Bld) 46.6 % Normal 37.9-49.2 [facility] Comment on above: Performed By: #### P T #### Unless otherwise noted, all testing performed by [address] [address] CLIA: [id number] Gauge Maker Apprentice: Twin Marley M.D. Hemoglobin mass conc (Bld) 15.5 g/dL Normal 12.9-16.9 [facility] Comment on above: Performed By: #### P T #### Unless otherwise noted, all testing performed by [place] [address] CLIA: [id number] Gauge Maker Apprentice: Twin Marley M.D. MCH Entitic mass (RBC) 28.2 pg Normal 27.7-34.6 [facility] Comment on above: Performed By: #### P T #### Unless otherwise noted, all testing performed by [place] [address] CLIA: [id number] Gauge Maker Apprentice: Twin Marley M.D. MCHC mass conc (RBC) 33.3 g/dL Normal 32.9-35.5 [facility] Comment on above: Performed By: #### P T #### Unless otherwise noted, all testing performed by [place] [address] CLIA: [id number] Gauge Maker Apprentice: Twin Marley M.D. MCV Entitic volume (RBC) 84.5 fL Normal 82.8-99.3 [facility] Comment on above: Performed By: #### P T #### Unless otherwise noted, all testing performed by [place] [address] CLIA: [id number] Gauge Maker Apprentice: Twin Marley M.D. Platelet mean volume Entitic volume (Bld) 8.4 fL Normal 6.6-10.8 [facility] Comment on above: Performed By: #### P T #### Unless otherwise noted, all testing performed by [place] [address] CLIA: [id number] Gauge Maker Apprentice: Twin Marley M.D. Platelets #/vol (Bld) 269 K/mcL Normal 139-354 [facility] Comment on above: Performed By: #### P T #### Unless otherwise noted, all testing performed by [place] [address] CLIA: [id number] Gauge Maker Apprentice: Twin Marley M.D. RBC #/vol (Bld) 5.52 M/mcL High 4.0-5.5 [facility] Comment on above: Performed By: #### P T #### Unless otherwise noted, all testing performed by [place] [address] CLIA: [id number] Gauge Maker Apprentice: Twin Marley M.D. WBC #/vol (Bld) 11.3 K/mcL High 3.6-10.4 [facility] Comment on above: Performed By: #### P T #### Unless otherwise noted, all testing performed by [place] [address] CLIA: [id number] Gauge Maker Apprentice: Twin Marley M.D. CHEST (ONE VIEW ONLY)on 09-12 CHEST (ONE VIEW ONLY) Final Report Accession No: [id number] Performed: Sep 23 2017 4:18PM Examination: CHEST (ONE VIEW ONLY) PORTABLE CHEST: COMPARISON: Two-view chest from 09/11/2017. REASON FOR STUDY: Chest pain. REPORT: The lungs are clear and well aerated. No effusion, nodule or pneumothorax is noted. The diaphragm and bony elements are intact. No infiltrate is noted. IMPRESSION: Nonacute portable chest. Interpreting Physician: BI BAUER D.O. Trans: istumb : cc: Normal [facility] Cardiac Troponin-Ion 018 Troponin I.cardiac mass conc ng/mL Normal < 45.0 [facility] Comment on above: Result Comment: [...] Unless otherwise noted, all testing performed by [place] [address] CLIA: [id number] Gauge Maker Apprentice: Twin Marley M.D. Troponin I.cardiac mass conc No Biomarker evidence of myocardial injury within the past 14 hours. Normal [facility] Comment on above: Performed By: #### P T #### Unless otherwise noted, all testing performed by [place] [address] CLIA: [id number] Gauge Maker Apprentice: Twin Marley M.D. Cardiac Troponin-Ion 09-12 Troponin I.cardiac mass conc ng/mL Normal < 45 [facility] Comment on above: Result Comment: [...] Unless otherwise noted, all testing performed by [place] [address] CLIA: [id number] Gauge Maker Apprentice: Twin Ayaka, M.D. History And Physical-Dictate jessica 09-23-2017 History And Physical-Dictated [facility] Blaine HOFFMANN. [place] [id number] NAME FERNANDO HELTON [facility] [id number] 1970 ADMIT HISTORY AND PHYSICAL CHIEF COMPLAINT Chest pain. HISTORY OF PRESENT ILLNESS 47-year-old male with past medical history of coronary disease, status post CA in 2012, with stent in 2014. Saw [...] Gastrointestinal prophylaxis. MD Pina PRADHAN 09/23/2017 20:41 [id number] T 09/23/2017 21:07 AFS/MODL Electronically Signed By Sofie Daigle M.D. on 27 Sep 2017 19:09:11 GMT Normal [facility] Partial Thromboplastin Timeo n 09-23-2017 aPTT Coag time (Bld) 28 s Normal 23.0-34.0 [facility] Comment on above: Result Comment: Rosemary sauceda therapeutic range for PTT is 68-104 sec. Performed By: #### P T #### Unless otherwise noted, all testing performed by [place] [id number] CLIA: [id number] Gauge Maker Apprentice: Twin Marley M.D. Protimeon 09-23-2017 INR Coag RelTime (PPP) 0.94 {INR} Normal [facility] Comment on above: Result Comment: [employer] recommended therapeutic range for Warfarin (Coumadin) therapy goals: PROPHYLAXIS/TREATMENT of: INR Venous Thrombosis, Pulmonary Embolism 2.0-3.0 Prevention of VTE (Orthopedic Surgery) 2.0-3.0 Atrial Fibrillation 2.0-3.0 Myocardial Infarction 2.0-3.0 Mechanical Prosthetic Heart Valves (Aortic position) 2.0-3.0 Mechanical Prosthetic Heart Valves (Mitral Position) 2.5-3.5 [employer] evidence-based clinical practice guidelines. CHEST. 2012 (9th ed) Performed By: #### E DCTNI, PTT, PT, CBCWOD, CHEM8 #### Unless otherwise noted, all testing performed by [place] [address] CLIA: [id number] Gauge Maker Apprentice: Twin Marley M.D. Prothrombin time (PT) Coag time (PPP) 12.2 s Normal 11.8-14.3 [facility] Comment on above: Performed By: #### E DCTNI, PTT, PT, CBCWOD, CHEM8 #### Unless otherwise noted, all testing performed by [place] [address] CLIA: [id number] Gauge Maker Apprentice: Twin Marley M.D. Culture, Strep (Throat)on Culture, Strep (Throat) Test Name: Cultu re, Strep (Throat) Culture Status: Final Culture Report: No Group A streptococci isolated. Micro Source: Throat Normal [facility] Comment on above: Performed By: #### S TRCUL #### Unless otherwise noted, all testing performed by [place] [address] CLIA: [id number] Gauge Maker Apprentice: Twin Marley M.D. FS BNP (B-NatriureticPeptide )on 09-11-2017 Natriuretic peptide B mass conc (Bld) 51.5 pg/mL Normal < 100 [facility] Comment on above: Result Comment: BNP may be falsely elevated in patients taking ENTRESTO. Testing performed at [address]; Medical Director [employer] Orion Gusman M.D. Performed By: #### F SBNP #### Unless otherwise noted, all testing performed by [place] [address] CLIA: [id number] Gauge Maker Apprentice: Twin Marley M.D. FS Basic Metabolic Panelon 0 09-11-2017 Calcium mass conc 9.2 mg/dL Normal 8.4-10.2 [facility] Comment on above: Performed By: #### F SBMET #### Unless otherwise noted, all testing performed by [place] [address] CLIA: [id number] Gauge Maker Apprentice: Twin Marley M.D. Chloride molar conc 107 mmol/L Normal 98-108 [facility] Comment on above: Performed By: #### F SBMET #### Unless otherwise noted, all testing performed by [place] [address] CLIA: [id number] Gauge Maker Apprentice: Twin Marley M.D. CO2 molar conc 26 mmol/L Normal 21-32 [facility] Comment on above: Performed By: #### F SBMET #### Unless otherwise noted, all testing performed by [place] [phone] CLIA: [id number] Gauge Maker Apprentice: Twin Marley M.D. Creatinine mass conc 1.1 mg/dL Normal 0.50-1.30 [facility] Comment on above: Performed By: #### F SBMET #### Unless otherwise noted, all testing performed by [place] [phone] CLIA: [id number] Gauge Maker Apprentice: Twin Marley M.D. Glucose mass conc 96 mg/dL Normal 65-99 [facility] Comment on above: Performed By: #### F SBMET #### Unless otherwise noted, all testing performed by [place] [phone] CLIA: [id number] Gauge Maker Apprentice: Twin Marley M.D. Potassium molar conc 3.9 mmol/L Normal 3.5-5.1 [facility] Comment on above: Performed By: #### F SBMET #### Unless otherwise noted, all testing performed by [place] [address] CLIA: [id number] Gauge Maker Apprentice: Twin Marley M.D. Sodium molar conc 139 mmol/L Normal 135-145 [facility] Comment on above: Performed By: #### F SBMET #### Unless otherwise noted, all testing performed by [place] [address] CLIA: [id number] Gauge Maker Apprentice: Twin Marley M.D. Testing performed [facility] Comment on above: Result Comment: Test ing performed at [facility], [address] [place] [address]; Medical Director [employer] Orion Gusman M.D. Performed By: #### F SBMET #### Unless otherwise noted, all testing performed by [place] [address] CLIA: [id number] Gauge Maker Apprentice: Twin Marley M.D. Urea nitrogen mass conc 15 mg/dL Normal 8-25 [facility] Comment on above: Performed By: #### F SBMET #### Unless otherwise noted, all testing performed by [place] [address] CLIA: [id number] Gauge Maker Apprentice: Twin Marley M.D. FS CBCon 09-11-2017 Erythrocyte distribution width Ratio (RBC) 15.2 % High 11.6-14.8 [facility] Comment on above: Performed By: #### F SCBC #### Unless otherwise noted, all testing performed by [place] [address] CLIA: [id number] Gauge Maker Apprentice: Twin Marley M.D. Hematocrit Volume Fraction (Bld) 43.2 % Normal 41.0-53.0 [facility] Comment on above: Performed By: #### F SCBC #### Unless otherwise noted, all testing performed by [place] [address] CLIA: [id number] Gauge Maker Apprentice: Twin Marley M.D. Hemoglobin mass conc (Bld) 14.2 g/dL Normal 13.5-17.5 [facility] Comment on above: Performed By: #### F SCBC #### Unless otherwise noted, all testing performed by [place] [phone] CLIA: [id number] Gauge Maker Apprentice: Twin Marley M.D. Lymphocytes #/vol (Bld) 4.2 K/mcL High 0.90-4.00 [facility] Comment on above: Performed By: #### F SCBC #### Unless otherwise noted, all testing performed by [place] [phone] CLIA: [id number] Gauge Maker Apprentice: Twin Marley M.D. Lymphocytes/100 WBC (Bld) 39.2 % Normal [facility] Comment on above: Performed By: #### F SCBC #### Unless otherwise noted, all testing performed by [place] [address] CLIA: [id number] Gauge Maker Apprentice: Twin Marley M.D. MCH Entitic mass (RBC) 28.4 pg Normal 26.0-34.0 [facility] Comment on above: Performed By: #### F SCBC #### Unless otherwise noted, all testing performed [place] [address] CLIA: [id number] Gauge Maker Apprentice: Twin Marley M.D. MCHC mass conc (RBC) 32.9 g/dL Normal 31.0-37.0 [facility] Comment on above: Performed By: #### F SCBC #### Unless otherwise noted, all testing performed by [place] [address] CLIA: [id number] Gauge Maker Apprentice: Twin Marley M.D. MCV Entitic volume (RBC) 86.4 fL Normal 80-100 [facility] Comment on above: Performed By: #### F SCBC #### Unless otherwise noted, all testing performed by [place] [address] CLIA: [id number] Gauge Maker Apprentice: Twin Marley M.D. Neutrophils #/vol (Bld) 5.4 K/mcL Normal 1.70-7.00 [facility] Comment on above: Performed By: #### F SCBC #### Unless otherwise noted, all testing performed by [place] [address] CLIA: [id number] Gauge Maker Apprentice: Twin Marley M.D. Platelet mean volume Entitic volume (Bld) 11.6 fL Normal 9.0-15.5 [facility] Comment on above: Performed By: #### F SCBC #### Unless otherwise noted, all testing performed by [place] [address] CLIA: [id number] Gauge Maker Apprentice: Twin Marley M.D. Platelets #/vol (Bld) 271 K/mcL Normal 150-400 [facility] Comment on above: Performed By: #### F SCBC #### Unless otherwise noted, all testing performed by [place] [address] CLIA: [id number] Gauge Maker Apprentice: Twin Marley M.D. RBC #/vol (Bld) 5.00 M/mcL Normal 4.50-5.90 [facility] Comment on above: Performed By: #### F SCBC #### Unless otherwise noted, all testing performed by [place] [address] CLIA: [id number] Gauge Maker Apprentice: Twin Marley M.D. Segmented Neut % 49.5 % Normal [facility] Comment on above: Performed By: #### F SCBC #### Unless otherwise noted, all testing performed by [place] [address] CLIA: [id number] Gauge Maker Apprentice: Twin Marley M.D. Testing performed [facility] FSED Normal [facility] Comment on above: Result Comment: Test ing performed at [address]; Medical Director [employer] Orion Gusman M.D. Performed By: #### F SCBC #### Unless otherwise noted, all testing performed by [place] [address] CLIA: [id number] Gauge Maker Apprentice: Twin Marley M.D. WBC #/vol (Bld) 10.8 K/mcL Normal 4.5-11.0 [facility] Comment on above: Performed By: #### F SCBC #### Unless otherwise noted, all testing performed by [address] [place], [place] [address] CLIA: [id number] Gauge Maker Apprentice: Twin Marley M.D. FS D-Dimeron 09-11-2017 FS D-Dimer < 100 Normal < 350 [facility] Comment on above: Result Comment: This test is used as an aid in the assessment and evaluation of patients suspected of having disseminated intravascular coagulation or thromboembolitic events including pulmonary embolism. It should not be used as absolute evidence of PE or DVT. Testing performed at [facility], [address] [place] [address]; Medical Director [employer] Orion Gusman M.D. Performed By: #### F SDDIMR #### Unless otherwise noted, all testing performed by [place] [address] CLIA: [id number] Gauge Maker Apprentice: Twin Marley M.D. FS Pochi instrument alerton 09-11-2017 FS Pochi instrument alert Invalid Results Normal [facility] Comment on above: Result Comment: Poss ible interfering substances and/or clinically significant abnormalities that require smear review. Recommend re-draw, reordering as CBC w/Diff and sending to [facility] laboratory. Performed By: #### F SPOCHI #### Unless otherwise noted, all testing performed by [place] [id number] CLIA: [id number] Gauge Maker Apprentice: Twin Marley M.D. FS Rapid Strep A Scrnon 08-14 S. pyogenes Ag IA Ql (Unsp spec) Negative Normal Negative [facility] Comment on above: Result Comment: Nega tive rapid antigen tests will be followed-up with a culture. Rapid test procedural control acceptable. Testing performed at [facility], [address] [place] [address]; Medical Director Software Quality [employer] Orion Gusman M.D. Performed By: #### F SSTREP #### Unless otherwise noted, all testing performed by [facility] [address] [facility] [facility] [address] [place], [place] [address] CLIA: [id number] Gauge Maker Apprentice: Twin Marley M.D. FS Troponin Ion 09-11-2017 Troponin I.cardiac mass conc ng/mL Normal < 0.05 [facility] Comment on above: Result Comment: Test ing performed at [facility], [address] [place] [address]; Medical Director [employer] Orion Gusman M.D. Performed By: #### F STROPI #### Unless otherwise noted, all testing performed by [place] [id number] CLIA: [id number] Gauge Maker Apprentice: Twin Marley M.D. Protimeon 09-11-2017 INR Coag RelTime (PPP) CANCEL PER [facility] ED, CREDIT FORM COMPLETED Normal [facility] Comment on above: Result Comment: Comm ent deleted 09/11/2017 18:47 by LEVONENNE: The [employer] recommended therapeutic range for Warfarin (Coumadin) therapy goals: PROPHYLAXIS/TREATMENT of: INR Venous Thrombosis, Pulmonary Embolism 2.0-3.0 Prevention of VTE (Orthopedic Surgery) 2.0-3.0 Atrial Fibrillation 2.0-3.0 Myocardial Infarction 2.0-3.0 Mechanical Prosthetic Heart Valves (Aortic position) 2.0-3.0 Mechanical Prosthetic Heart Valves (Mitral Position) 2.5-3.5 [employer] evidence-based clinical practice guidelines. CHEST. 2012 (9th ed) [employer] recommended therapeutic range for Warfarin (Coumadin) therapy goals: PROPHYLAXIS/TREATMENT of: INR Venous Thrombosis, Pulmonary Embolism 2.0-3.0 Prevention of VTE (Orthopedic Surgery) 2.0-3.0 Atrial Fibrillation 2.0-3.0 Myocardial Infarction 2.0-3.0 Mechanical Prosthetic Heart Valves (Aortic position) 2.0-3.0 Mechanical Prosthetic Heart Valves (Mitral Position) 2.5-3.5 [employer] evidence-based clinical practice guidelines. CHEST. 2012 (9th ed) Test INR with result of CANCEL PER [facility], CREDIT FORM COMPLETED was originally reported as 1.1 and was changed on 09/11/2017 18:47 by JENN Performed By: #### P T #### Unless otherwise noted, all testing performed by [address] [address] CLIA: [id number] Gauge Maker Apprentice: Twin Marley M.D. Prothrombin time (PT) Coag time (PPP) CANCEL PER [facility], CREDIT FORM COMPLETED Normal 11.8-14.3 [facility] Comment on above: Result Comment: Test Protime with result of CANCEL PER [facility], CREDIT FORM COMPLETED was originally reported as 9.6 and was changed on 09/11/2017 18:47 by JENN Performed By: #### P T #### Unless otherwise noted, all testing performed by [place] [id number] CLIA: [id number] Gauge Maker Apprentice: Twin Marley M.D. Blood Smear Reviewon 017 Blood Smear Review See Pathology Report. [facility] RBC morphology finding Nom (Bld) Normal Normal [facility] CBC and Differentialon 10-26 Basophils #/vol (Bld) 0.1 K/mcL 0 - 0.2 [facility] Basophils/100 WBC (Bld) 0.6 % O [facility] Eosinophils #/vol (Bld) 0.8 K/mcL High 0 - 0.5 O [facility] Eosinophils/100 WBC (Bld) 7.0 % [facility] Erythrocyte distribution width Ratio (RBC) 15.2 % High 10 - 14.3 % [facility] Hematocrit Volume Fraction (Bld) 46.0 % 37.9 - 49.2 % [facility] Hemoglobin mass conc (Bld) 15.3 g/dL 12.9 - 16.9 g/dL [facility] Interpretation and review of laboratory results Abnormal [facility] Lymphocytes #/vol (Bld) 3.9 K/mcL High 0.9 - 3.6 O [facility] Lymphocytes/100 WBC (Bld) 36.3 % [facility] MCH Entitic mass (RBC) 27.6 pg Low 27.7 - 34.6 pg [facility] MCHC mass conc (RBC) 33.2 g/dL 32.9 - 35.5 g/dL [facility] MCV Entitic volume (RBC) 83.1 fL 82. 8 - 99.3 [facility] Monocytes #/vol (Bld) 0.7 K/mcL High 0.2 - 0.6 [facility] Monocytes/100 WBC (Bld) 6.9 % O [facility] Neutrophils #/vol (Bld) 5.3 K/mcL 1.4 - 6.8 O [facility] Platelet mean volume Entitic volume (Bld) 8.9 fL 6.6 - 10.8 [facility] Platelets #/vol (Bld) 260 K/mcL 139 - 354 [facility] RBC #/vol (Bld) 5.53 M/mcL High 4.0 - 5.5 [facility] Segmented Neut 49.2 % [facility] WBC #/vol (Bld) 10.8 K/mcL High 3.6 - 10.4 [facility] CRP, C-Reactive Proteinon CRP - Inflammation 15.2 mg/L High 0 - 10 mg/L [facility] LDHon 10-26-2016 LDH 158 U/L 100 - 250 U/L [facility] Sedimentation Rateon 017 Sed Rate 10 MM/hr. 0 - 15 [facility] CBC and Differentialon 10-12 Basophils #/vol (Bld) 0.1 K/mcL 0 - 0.2 [facility] Basophils/100 WBC (Bld) 0.6 % [facility] Eosinophils #/vol (Bld) 0.5 K/mcL 0 - 0.5 O [facility] Eosinophils/100 WBC (Bld) 4.3 % [facility] Erythrocyte distribution width Ratio (RBC) 14.8 % High 10 - 14.3 % [facility] Hematocrit Volume Fraction (Bld) 48.0 % 37.9 - 49.2 % [facility] Hemoglobin mass conc (Bld) 15.8 g/dL 12.9 - 16.9 g/dL [facility] Interpretation and review of laboratory results Abnormal [facility] Lymphocytes #/vol (Bld) 4.6 K/mcL High 0.9 - 3.6 O [facility] Lymphocytes/100 WBC (Bld) 36.3 % [facility] MCH Entitic mass (RBC) 27.5 pg Low 27.7 - 34.6 pg [facility] MCHC mass conc (RBC) 33.0 g/dL 32.9 - 35.5 g/dL [facility] MCV Entitic volume (RBC) 83.4 fL 82. 8 - 99.3 [facility] Monocytes #/vol (Bld) 1.0 K/mcL High 0.2 - 0.6 [facility] Monocytes/100 WBC (Bld) 8.2 % O [facility] Neutrophils #/vol (Bld) 6.4 K/mcL 1.4 - 6.8 O [facility] Platelet mean volume Entitic volume (Bld) 9.5 fL 6.6 - 10.8 [facility] Platelets #/vol (Bld) 252 K/mcL 139 - 354 [facility] RBC #/vol (Bld) 5.75 M/mcL High 4.0 - 5.5 [facility] Segmented Neut 50.6 % [facility] WBC #/vol (Bld) 12.7 K/mcL High 3.6 - 10.4 [facility] TSHon 10-12-2016 Thyrotropin Qn 1.58 uIU/mL 0.320 - 5.000 [facility] Vitamin B12 and Folateson Cobalamin (Vitamin B12) mass conc 375 pg/mL 193 - 986 pg/mL [facility] Folate 18.2 ng/mL High 3.1 - 17.5 ng/mL [facility] CBC and Differentialon 09-18 Basophils #/vol (Bld) 0.1 K/mcL 0 - 0.2 [facility] Basophils/100 WBC (Bld) 0.7 % O [facility] Eosinophils #/vol (Bld) 0.5 K/mcL 0 - 0.5 O [facility] Eosinophils/100 WBC (Bld) 5.7 % [facility] Erythrocyte distribution width Ratio (RBC) 14.8 % High 10 - 14.3 % [facility] Hematocrit Volume Fraction (Bld) 46.2 % 37.9 - 49.2 % [facility] Hemoglobin mass conc (Bld) 15.5 g/dL 12.9 - 16.9 g/dL [facility] Interpretation and review of laboratory results Abnormal [facility] Lymphocytes #/vol (Bld) 3.2 K/mcL 0.9 - 3.6 O [facility] Lymphocytes/100 WBC (Bld) 33.3 % [facility] MCH Entitic mass (RBC) 27.9 pg 27.7 - 34.6 pg [facility] MCHC mass conc (RBC) 33.6 g/dL 32.9 - 35.5 g/dL [facility] MCV Entitic volume (RBC) 83.2 fL 82. 8 - 99.3 [facility] Monocytes #/vol (Bld) 0.7 K/mcL High 0.2 - 0.6 [facility] Monocytes/100 WBC (Bld) 7.3 % O [facility] Neutrophils #/vol (Bld) 5.1 K/mcL 1.4 - 6.8 O [facility] Platelet mean volume Entitic volume (Bld) 8.8 fL 6.6 - 10.8 [facility] Platelets #/vol (Bld) 252 K/mcL 139 - 354 [facility] RBC #/vol (Bld) 5.56 M/mcL High 4.0 - 5.5 [facility] Segmented Neut 53.0 % [facility] WBC #/vol (Bld) 9.6 K/mcL 3.6 - 10.4 [facility] Comprehensive Metabolic Pane sangeetha 09-18-2016 Albumin mass conc 4.4 g/dL 3.5 - 5 g/dL [facility] ALP enzyme act/vol 69 U/L 25 - 100 U/L [facility] ALT enzyme act/vol 22 U/L 10 - 40 U/L [facility] Comment on above: This test result urban ht be falsely depressed or falsely elevated on samples drawn from patients taking Sulfasalazine and Sulfapyridine. Venipuncture should occur prior to taking either of these drugs. AST enzyme act/vol 19 U/L 10 - 40 U/L [facility] Bilirubin mass conc 0.8 mg/dL 0.3 - 1. 2 mg/dL [facility] Calcium mass conc 9.4 mg/dL 8.4 - 10.2 mg/dL [facility] Chloride molar conc 106 mmol/L 99 - 111 mmol/L [facility] CO2 molar conc 25 mmol/L 23 - 32 mmol/L [facility] Creatinine mass conc 0.98 mg/dL 0.6 - 1 .2 mg/dL [facility] GFR/1.73 sq M predicted among blacks MDRD vol rate/area (S/P/Bld) mL/min/{1.73_m2} ml/min/1.7 3sq.m [facility] GFR/1.73 sq M predicted among non-blacks MDRD vol rate/area (S/P/Bld) mL/min/{1.73_m2} ml/min/1.7 3sq.m [facility] Comment on above: eGFR is an estimated [...] 108 mg/dL High 70 - 99 mg/dL [facility] Potassium molar conc 4.3 mmol/L 3.5 - 5 .1 mmol/L [facility] Protein mass conc 6.9 g/dL 6.4 - 8.3 g/dL [facility] Sodium molar conc 139 mmol/L 136 - 145 mmol/L [facility] Urea nitrogen mass conc 16 mg/dL 6 - 20 mg/dL [facility] Lipid Panelon 09-18-2016 Cholesterol in HDL mass conc 43 mg/dL 28 - 75 mg/dL [facility] Cholesterol in LDL mass conc 105 mg/dL <130 [facility] Cholesterol in VLDL mass conc 30 mg/dL 5 - 40 mg/dL [facility] Cholesterol mass conc 178 mg/dL 112 - 200 mg/dL [facility] Cholesterol.total/Choles terol in HDL mass ratio 4.1 {ratio} 3.3 - 5.0 [facility] Comment on above: Male Coronary Heart Disease Risk Factor (CHDRF): Average risk= 5.0 1/2 Average risk= 3.4 2 times Average risk= 9.6 Triglyceride mass conc 151 mg/dL High 35 - 150 mg/dL [facility] T4, Freeon 09-18-2016 T4 free mass conc 1.37 ng/dL 0.76 - 1.79 ng/dL [facility] TSHon 09-18-2016 Thyrotropin Qn 0.714 uIU/mL 0.350 - 5.500 [facility] Comment on above: Please note that Flu [...] Diastolic blood pressure 94 mm[Hg] DO Jasen Orellanaetechies.in Work Phone: [facility] 12-07-2022 18:38-0400 Heart rate 95 /min DO Jasen Mersive Work Phone: [facility] 12-07-2022 18:38-0400 Respiratory rate 20 /min DO Jasen Orellanaetechies.in Work Phone: [facility] 12-07-2022 18:38-0400 SaO2% (BldA) [Mass fraction] 94 % DO Jasen Campbell Work Phone: [facility] 12-07-2022 18:38-0400 Systolic blood pressure 172 mm[Hg] DO Jasen Campbell Work Phone: [facility] 12-07-2022 14:28-0400 Body temperature 98.4 [degF] DO Jasen Campbell Work Phone: [facility] 12-07-2022 13:37-0400 Body height 167.64 cm DO Jasen Campbell Work Phone: [facility] 12-07-2022 13:37-0400 Body weight 113.8 kg DO Jasen Campbell Work Phone: [facility] 12-27-2021 07:16-0500 Body height 165.1 cm Moises Patel MD Work Phone: [facility] 12-27-2021 07:16-0500 Body mass index (BMI) [Ratio] 42.7 kg/m2 Moises Patel MD Work Phone: [facility] 12-27-2021 07:16-0500 Body weight 116.39 kg Moises Patel MD Work Phone: [facility] 12-27-2021 07:16-0500 Diastolic blood pressure 88 mm[Hg] Moises Patel MD Work Phone: [employer] [facility] 12-27-2021 07:16-0500 Heart rate 75 /min Moises Patel MD Work Phone: [employer] [facility] 12-27-2021 07:16-0500 SaO2% (BldA) [Mass fraction] 95 % Moises Patel MD Work Phone: [employer] 12-27-2021 07:16-0500 Systolic blood pressure 132 mm[Hg] Moises Patel MD Work Phone: [employer] [facility] 09-15-2020 09:03-0400 Body height 165.1 cm Moises Patel MD Work Phone: [employer] 09-15-2020 09:03-0400 Body mass index (BMI) [Ratio] 47.93 kg/m2 Moises Patel MD Work Phone: [employer] [facility] 09-15-2020 09:03-0400 Body temperature 97.81 [degF] Moises Patel MD Work Phone: [employer] [facility] 09-15-2020 09:03-0400 Body weight 130.64 kg Moises Patel MD Work Phone: [employer] [facility] 09-15-2020 09:03-0400 Diastolic blood pressure 92 mm[Hg] Moises Patel MD Work Phone: [employer] [facility] 09-15-2020 09:03-0400 Heart rate 80 /min Moises Patel MD Work Phone: [employer] [facility] 09-15-2020 09:03-0400 SaO2% (BldA) [Mass fraction] 94 % Moises Patel MD Work Phone: [employer] [facility] 09-15-2020 09:03-0400 Systolic blood pressure 138 mm[Hg] Moises Patel MD Work Phone: [employer] 06-02-2020 08:21-0400 Body height 167.6 cm Anita Rowland MD Work Phone: [facility] 06-02-2020 08:21-0400 Body mass index (BMI) [Ratio] 46 kg/m2 Anita Rowland MD Work Phone: [facility] 06-02-2020 08:21-0400 Body weight 129.28 kg Anita Rowland MD Work Phone: [facility] 06-02-2020 08:12-0400 Body temperature 98.01 [degF] Anita Rowland MD Work Phone: [facility] 06-02-2020 08:12-0400 Diastolic blood pressure 82 mm[Hg] Anita Rowland MD Work Phone: [facility] 06-02-2020 08:12-0400 Heart rate 74 /min Anita Rowland MD Work Phone: [facility] 06-02-2020 08:12-0400 Respiratory rate 16 /min Anita Rowland MD Work Phone: [facility] 06-02-2020 08:12-0400 SaO2% (BldA) [Mass fraction] 93 % Anita Rowland MD Work Phone: [facility] 06-02-2020 08:12-0400 Systolic blood pressure 117 mm[Hg] Anita Rowland MD Work Phone: [facility] 05-28-2020 16:05-0400 Body height 167.6 cm Anita Rowland MD Work Phone: [facility] 05-28-2020 16:05-0400 Body mass index (BMI) [Ratio] 43.28 kg/m2 Anita Rowland MD Work Phone: [facility] 05-28-2020 16:05-0400 Body weight 121.56 kg Anita Rowland MD Work Phone: [facility] 05-28-2020 16:05-0400 Diastolic blood pressure 88 mm[Hg] Anita Rowland MD Work Phone: [facility] 05-28-2020 16:05-0400 Heart rate 78 /min Anita Rowland MD Work Phone: [facility] 05-28-2020 16:05-0400 SaO2% (BldA) [Mass fraction] 96 % Anita Rowland MD Work Phone: [facility] 05-28-2020 16:05-0400 Systolic blood pressure 149 mm[Hg] Anita Rowland MD Work Phone: [facility] 05-28-2020 07:59-0400 Body height 167.6 cm Anita Rowland MD Work Phone: [facility] 05-28-2020 07:59-0400 Body mass index (BMI) [Ratio] 42.01 kg/m2 Anita Rowland MD Work Phone: [facility] 05-28-2020 07:59-0400 Body weight 118 kg Anita Rowland MD Work Phone: [facility] 05-28-2020 07:59-0400 Diastolic blood pressure 79 mm[Hg] Anita Rowland MD Work Phone: [facility] 05-28-2020 07:59-0400 Heart rate 80 /min Anita Rowland MD Work Phone: [facility] 05-28-2020 07:59-0400 Systolic blood pressure 123 mm[Hg] Anita Rowland MD Work Phone: [facility] 10-16-2019 15:34-0400 BP Diastolic 90 mm[Hg] [facility] 10-16-2019 15:34-0400 BP Systolic 137 mm[Hg] [facility] 10-16-2019 15:34-0400 Pulse (Heart Rate) 102 /min [facility] 10-16-2019 15:34-0400 Pulse Oximetry 100 % [facility] 10-16-2019 12:05-0400 Body Temperature 97.59 [degF] [facility] 10-16-2019 12:05-0400 Respiratory Rate 16 /min [facility] 10-16-2019 01:23-0400 BMI (Body Mass Index) 41.99 kg/m2 [facility] 10-16-2019 01:23-0400 Body weight 118 kg [facility] 10-16-2019 01:23-0400 Height 167.6 cm [facility] 10-15-2019 14:06-0400 BMI (Body Mass Index) 42.79 kg/m2 Anita Rowland [facility] 10-15-2019 14:06-0400 Body weight 120.25 kg Anita Etiennedavid [facility] 10-15-2019 14:06-0400 BP Diastolic 85 mm[Hg] Anita Jaimiedavid [facility] 10-15-2019 14:06-0400 BP Systolic 142 mm[Hg] Anita Jaiimedavid [facility] 10-15-2019 14:06-0400 Height 167.6 cm Anita Eatdavid [facility] 10-15-2019 14:06-0400 Pulse (Heart Rate) 83 /min Anita Rowland [facility] 10-15-2019 14:06-0400 Pulse Oximetry 95 % Anita Rowland [facility] 09-23-2019 13:07-0400 BP Diastolic 104 mm[Hg] [facility] 09-23-2019 13:07-0400 BP Systolic 155 mm[Hg] [facility] 09-23-2019 13:07-0400 Pulse (Heart Rate) 65 /min [facility] 09-23-2019 13:01-0400 Pulse Oximetry 97 % [facility] 09-23-2019 11:28-0400 Respiratory Rate 16 /min [facility] 09-23-2019 08:44-0400 Body Temperature 97.81 [degF] [facility] 09-22-2019 12:02-0400 BMI (Body Mass Index) 43.66 kg/m2 [facility] 09-22-2019 12:02-0400 Body weight 122.7 kg [facility] 09-22-2019 12:02-0400 Height 167.6 cm [facility] 04-03-2019 15:09-0500 BMI (Body Mass Index) 41.97 kg/m2 [facility] 04-03-2019 15:09-0500 Body weight 117.94 kg [facility] 04-03-2019 15:09-0500 BP Diastolic 85 mm[Hg] [facility] 04-03-2019 15:09-0500 BP Systolic 130 mm[Hg] [facility] 04-03-2019 15:09-0500 Height 167.6 cm [facility] 04-03-2019 15:09-0500 Pulse (Heart Rate) 86 /min [facility] 04-03-2019 15:09-0500 Pulse Oximetry 95 % [facility] 03-11-2019 08:19-0500 BP Diastolic 66 mm[Hg] Torie Westbrook [facility] 03-11-2019 08:19-0500 BP Systolic 122 mm[Hg] Torie Abbottluba [facility] 02-26-2019 13:19-0500 BMI (Body Mass Index) 38.82 kg/m2 Kristin [facility] 02-26-2019 13:19-0500 Body Temperature 98.4 [degF] Kristin [facility] 02-26-2019 13:19-0500 Body weight 109.09 kg Kristin [facility] 02-26-2019 13:19-0500 BP Diastolic 88 mm[Hg] Kristin [facility] 02-26-2019 13:19-0500 BP Systolic 129 mm[Hg] Kristin [facility] 02-26-2019 13:19-0500 Height 167.6 cm Kristin [facility] 02-26-2019 13:19-0500 Pulse (Heart Rate) 93 /min Kristin [facility] 02-26-2019 13:19-0500 Pulse Oximetry 93 % Kristin [facility] 02-26-2019 13:19-0500 Respiratory Rate 16 /min Kristin [facility] 02-26-2019 00:00-0500 BP Diastolic 78 mm[Hg] [facility] 02-26-2019 00:00-0500 BP Systolic 122 mm[Hg] [facility] 02-26-2019 00:00-0500 Pulse (Heart Rate) 79 /min [facility] 02-26-2019 00:00-0500 Pulse Oximetry 97 % [facility] 02-26-2019 00:00-0500 Respiratory Rate 18 /min [facility] 02-25-2019 20:32-0500 BMI (Body Mass Index) 38.25 kg/m2 [facility] 02-25-2019 20:32-0500 Body Temperature 98.01 [degF] [facility] 02-25-2019 20:32-0500 Body weight 107.5 kg [facility] 02-25-2019 20:32-0500 Height 167.6 cm [facility] 02-21-2019 09:10-0500 BMI (Body Mass Index) 39.22 kg/m2 Kristin [facility] 02-21-2019 09:10-0500 Body Temperature 97.81 [degF] Kristin [facility] 02-21-2019 09:10-0500 Body weight 110.22 kg Kristin [facility] 02-21-2019 09:10-0500 BP Diastolic 84 mm[Hg] Kristin Walker [facility] 02-21-2019 09:10-0500 BP Systolic 128 mm[Hg] Kristin Walker [facility] 02-21-2019 09:10-0500 Height 167.6 cm Kristin [facility] 02-21-2019 09:10-0500 Pulse (Heart Rate) 77 /min Kristin [facility] 02-21-2019 09:10-0500 Pulse Oximetry 97 % Kristin [facility] 02-13-2019 09:07-0500 BMI (Body Mass Index) 39.38 kg/m2 Kristin [facility] 02-13-2019 09:07-0500 Body Temperature 97.5 [degF] Kristin [facility] 02-13-2019 09:07-0500 Body weight 110.68 kg Kristin [facility] 02-13-2019 09:07-0500 BP Diastolic 78 mm[Hg] Kristin [facility] 02-13-2019 09:07-0500 BP Systolic 115 mm[Hg] Kristin [facility] 02-13-2019 09:07-0500 Height 167.6 cm Kristin [facility] 02-13-2019 09:07-0500 Pulse (Heart Rate) 76 /min Krisitn [facility] 02-13-2019 09:07-0500 Pulse Oximetry 95 % Kristin [facility] 02-06-2019 13:05-0500 BMI (Body Mass Index) 39.59 kg/m2 [facility] 13:05-0500 Body Temperature 98.2 [degF] Jacob [facility] 02-06-2019 13:05-0500 Body weight 111.27 kg [facility] 02-06-2019 13:05-0500 BP Diastolic 81 mm[Hg] [facility] 02-06-2019 13:05-0500 BP Systolic 124 mm[Hg] [facility] 13:05-0500 Height 167.6 cm Jacob [facility] 02-06-2019 13:05-0500 Pulse (Heart Rate) 97 /min Jacob [facility] 02-06-2019 13:05-0500 Pulse Oximetry 95 % Jacob Cam [facility] 02-06-2019 13:05-0500 Respiratory Rate 17 /min Jacob Cam [facility] 02-04-2019 07:45-0500 Body Temperature 98.1 [degF] [facility] 02-04-2019 07:45-0500 BP Diastolic 91 mm[Hg] [facility] 02-04-2019 07:45-0500 BP Systolic 129 mm[Hg] [facility] 02-04-2019 07:45-0500 Pulse (Heart Rate) 90 /min [facility] 02-04-2019 07:45-0500 Pulse Oximetry 94 % [facility] 02-04-2019 07:45-0500 Respiratory Rate 16 /min [facility] 02-04-2019 05:58-0500 BMI (Body Mass Index) 38.8 kg/m2 [facility] 02-04-2019 05:58-0500 Body weight 109.05 [facility] [facility] [place] [facility]-02-2019 18:07-0500 Height 167.6 cm [facility] [place] 02-02-2019 12:08-0500 Respiratory rate 0 /min [facility] [place] 01-31-2019 09:19-0500 BMI (Body Mass Index) 40.66 kg/m2 Kristin [facility] 01-31-2019 09:19-0500 Body Temperature 98.1 [degF] Kristin [facility] 01-31-2019 09:19-0500 Body weight 114.26 kg Kristin [facility] 01-31-2019 09:19-0500 BP Diastolic 89 mm[Hg] Kristin Walker [facility] 01-31-2019 09:19-0500 BP Systolic 123 mm[Hg] Kristin Walker [facility] 01-31-2019 09:19-0500 Height 167.6 cm Kristin [facility] 01-31-2019 09:19-0500 Pulse (Heart Rate) 93 /min Kristin [facility] 01-31-2019 09:19-0500 Pulse Oximetry 94 % Kristin [facility] 01-31-2019 09:19-0500 Respiratory Rate 16 /min Kristin [facility] 01-29-2019 11:46-0500 Body Temperature 97.81 [degF] [facility] 01-29-2019 11:46-0500 BP Diastolic 78 mm[Hg] [facility] 01-29-2019 11:46-0500 BP Systolic 135 mm[Hg] [facility] 01-29-2019 11:46-0500 Pulse (Heart Rate) 83 /min [facility] 01-29-2019 11:46-0500 Pulse Oximetry 95 % [facility] 01-29-2019 11:46-0500 Respiratory Rate 18 /min [facility] 01-29-2019 05:40-0500 BMI (Body Mass Index) 39.86 kg/m2 [facility] 01-29-2019 05:40-0500 Body weight 112.5 kg [facility] Comment on above: standing scale 01-25-2019 13:34-0500 Respiratory rate 0 /min [facility] 01-24-2019 13:25-0500 Respiratory rate 0 /min [facility] 01-24-2019 11:46-0500 Respiratory rate 12 /min [facility] 01-24-2019 10:43-0500 Respiratory rate 12 /min [facility] 01-24-2019 05:00-0500 Height 168 cm [facility] 01-20-2019 10:22-0500 Respiratory rate 0 /min [facility] 01-04-2019 16:55-0500 BMI (Body Mass Index) 40.35 kg/m2 [facility] 01-04-2019 16:55-0500 Body Temperature 97.9 [degF] [facility] 01-04-2019 16:55-0500 Body weight 113.4 kg [facility] 01-04-2019 16:55-0500 BP Diastolic 88 mm[Hg] [facility] 01-04-2019 16:55-0500 BP Systolic 137 mm[Hg] [facility] 01-04-2019 16:55-0500 Height 167.6 cm [facility] 01-04-2019 16:55-0500 Pulse (Heart Rate) 79 /min [facility] 01-04-2019 16:55-0500 Pulse Oximetry 98 % [facility] 01-04-2019 16:55-0500 Respiratory Rate 14 /min [facility] 12-26-2018 15:50-0500 BMI (Body Mass Index) 40.51 kg/m2 [facility] 12-26-2018 15:50-0500 Body weight 113.85 kg [facility] 12-26-2018 15:50-0500 BP Diastolic 87 mm[Hg] [facility] 12-26-2018 15:50-0500 BP Systolic 125 mm[Hg] [facility] 12-26-2018 15:50-0500 Height 167.6 cm [facility] 12-26-2018 15:50-0500 Pulse (Heart Rate) 98 /min [facility] 12-26-2018 15:50-0500 Pulse Oximetry 97 % [facility] 09-27-2018 22:00-0400 BP Diastolic 96 mm[Hg] [facility] 09-27-2018 22:00-0400 BP Systolic 146 mm[Hg] [facility] 09-27-2018 22:00-0400 Pulse (Heart Rate) 91 /min [facility] 09-27-2018 22:00-0400 Respiratory Rate 26 /min [facility] 09-27-2018 19:30-0400 Pulse Oximetry 95 % [facility] 09-27-2018 19:07-0400 BMI (Body Mass Index) 37.12 kg/m2 [facility] 09-27-2018 19:07-0400 Body Temperature 98.49 [degF] [facility] 09-27-2018 19:07-0400 Body weight 104.33 kg [facility] 09-27-2018 19:07-0400 Height 167.6 cm [facility] 01-07-2018 10:29-0500 BMI (Body Mass Index) 37.93 kg/m2 Patricia Louis [facility] 01-07-2018 10:29-0500 BP Diastolic 80 mm[Hg] Patricia Sruthi [facility] 01-07-2018 10:29-0500 BP Systolic 124 mm[Hg] Patricia Louis [facility] 01-07-2018 10:29-0500 Height 167.6 cm Patricia Louis [facility] 01-07-2018 10:29-0500 Pulse (Heart Rate) 78 /min Patricia Bowersx [facility] 01-07-2018 10:29-0500 Pulse Oximetry 96 % Patricia Bowersx [facility] 01-07-2018 10:29-0500 Weight 106.59 kg Patricia Louis [facility] 09-20-2017 15:31-0400 BMI (Body Mass Index) 36.48 kg/m2 Patricia Bowersx [facility] 09-20-2017 15:31-0400 BP Diastolic 80 mm[Hg] Patricia Sruthi [facility] 09-20-2017 15:31-0400 BP Systolic 145 mm[Hg] Patricia Sruthi [facility] 09-20-2017 15:31-0400 Height 167.6 cm Patricia Bowersx [facility] 09-20-2017 15:31-0400 Pulse (Heart Rate) 72 /min Patricia Louis [facility] 09-20-2017 15:31-0400 Pulse Oximetry 95 % Patricia Louis [facility] 09-20-2017 15:31-0400 Weight 102.51 kg Patricia Louis [facility] 12-08-2016 11:05-0400 BMI (Body Mass Index) 34.33 kg/m2 Bev Tolentino [facility] Work Phone: 12-08-2016 11:05-0400 BP Diastolic 96 mm[Hg] Bev Exten [facility] Work Phone: 12-08-2016 11:05-0400 BP Systolic 143 mm[Hg] Bev Exten [facility] Work Phone: 12-08-2016 11:05-0400 Height 167.6 cm Bev Tolentino [facility] Work Phone: 12-08-2016 11:05-0400 Pulse (Heart Rate) 69 /min Bev Exten [facility] Work Phone: 12-08-2016 11:05-0400 Weight 96.48 kg Bev Tolentino [employer] Work Phone: 11-23-2016 10:32-0400 BMI (Body Mass Index) 32.51 kg/m2 Bev Tolentino [employer] Work Phone: 11-23-2016 10:32-0400 BP Diastolic 93 mm[Hg] Bev Tolentino [employer] Work Phone: 11-23-2016 10:32-0400 BP Systolic 121 mm[Hg] Bev Tolentino [employer] Work Phone: 11-23-2016 10:32-0400 Height 170.2 cm Bev Tolentino [employer] Work Phone: 11-23-2016 10:32-0400 Pulse (Heart Rate) 78 /min Bev Tolentino [employer] Work Phone: 11-23-2016 10:32-0400 Weight 94.17 kg Bev Tolentino [employer] Work Phone: 11-02-2016 10:00-0400 BMI (Body Mass Index) 34.07 kg/m2 Bev Tolentino [employer] Work Phone: 11-02-2016 10:00-0400 BP Diastolic 92 mm[Hg] Bev Tolentino [employer] Work Phone: 11-02-2016 10:00-0400 BP Systolic 135 mm[Hg] Bev Tolentino [employer] Work Phone: 11-02-2016 10:00-0400 Height 167.6 cm Bev Tolentino [employer] Work Phone: 11-02-2016 10:00-0400 Pulse (Heart Rate) 63 /min Bev Tolentino [employer] Work Phone: 11-02-2016 10:00-0400 Weight 95.75 kg Bev Tolentino [employer] Work Phone: 10-26-2016 14:00-0400 Body mass index (BMI) [Ratio] Bev Tolentino [facility] 10-26-2016 09:58-0400 BMI (Body Mass Index) 35.72 kg/m2 Bev Tolentino [employer] Work Phone: 10-26-2016 09:58-0400 BP Diastolic 88 mm[Hg] Bev Tolentino [employer] Work Phone: 10-26-2016 09:58-0400 BP Systolic 133 mm[Hg] Bev Tolentino [employer] Work Phone: 10-26-2016 09:58-0400 Height 167.6 cm Bev Tolentino [employer] Work Phone: 10-26-2016 09:58-0400 Pulse (Heart Rate) 68 /min Bev Tolentino [employer] Work Phone: 10-26-2016 09:58-0400 Weight 100.38 kg Bev Tolentino [employer] Work Phone: 09-18-2016 08:56-0400 BMI (Body Mass Index) 33.89 kg/m2 Patricia Louis [employer] Work Phone: 09-18-2016 08:56-0400 BP Diastolic 76 mm[Hg] Patricia Sruthi [employer] Work Phone: 09-18-2016 08:56-0400 BP Systolic 124 mm[Hg] Patricia Louis [employer] Work Phone: 09-18-2016 08:56-0400 Height 167.6 cm Patricia Louis [employer] Work Phone: 09-18-2016 08:56-0400 Pulse (Heart Rate) 68 /min Patricia Sruthi [employer] Work Phone: 09-18-2016 08:56-0400 Pulse Oximetry 94 % Patricia Sruthi [employer] Work Phone: 09-18-2016 08:56-0400 Weight 95.25 kg Patricia Bowersx [employer] Work Phone: Encounters Encounter Date Encounter Type Care Provider Facility Start: 12-07-2022 End: 12-07-2022 Emergency department patient visit Jasen Campbell Facility:[facility] Start: 12-07-2022 End: 12-07-2022 Emergency department patient visit DO Jasen Campbell Work Phone: [facility] Work Phone: Start: 06-20-2022 End: 06-20-2022 Emergency department patient visit MOISES AGUILERA AMANDA [facility] Start: 06-01-2022 Refill Anita Rowland MD Work Phone: [facility] Comment on above: Medication Refill Start: 03-06-2022 Documentation procedure Cassia hernandez MA [facility] Start: 02-14-2022 Refill Tiffany Leo RN [facility] Comment on above: Medication Refill Start: 01-22-2022 Refill Anita Rowland MD Work Phone: [facility] Comment on above: Medication Refill Start: 12-27-2021 amb[facility] Start: 12-27-2021 End: 12-27-2021 Office outpatient visit 25 minutes Moises Patel MD Work Phone: [facility] Comment on above: Inadequately control led diabetes mellitus (Primary Dx); Insomnia, unspecified type Start: 11-06-2021 End: 11-09-2021 Evaluation and management of inpatient [facility] Start: 10-30-2021 End: 10-30-2021 Emergency department patient visit MOISES AGUILERA [facility] Start: 10-23-2021 Refill Anita Rowland MD Work Phone: [facility] Comment on above: Medication Refill Start: 10-21-2021 Refill Anita Rowland MD Work Phone: [facility] Comment on above: Medication Refill Start: 10-19-2021 Refill Anita Rowland MD Work Phone: [facility] Comment on above: Medication Refill Start: 10-11-2021 Refill Anita Rowland MD Work Phone: [facility] Comment on above: Medication Refill Start: 07-06-2021 Refill Tiffany Leo RN [facility] Comment on above: Medication Refill Start: 05-23-2021 Refill Anita Rowland MD Work Phone: [facility] Comment on above: Medication Refill Start: 03-28-2021 ambulatory MELINDA TERRELL FERNANDEZ [facility] Start: 01-17-2021 Refill Tiffany Leo RN [facility] Comment on above: Medication Refill Start: 09-15-2020 End: 09-15-2020 Office outpatient visit 25 minutes Moises Patel MD Work Phone: [facility] Comment on above: Chronic obstructive pulmonary disease with acute exacerbation (Primary Dx); COPD with acute exacerbation Start: 08-19-2020 End: 08-19-2020 Refill Tiffany Leo RN [facility] Comment on above: Medication Refill Start: 08-06-2020 End: 08-06-2020 Refill Anita Rowland MD Work Phone: [facility] Comment on above: Medication Refill Start: 08-06-2020 End: 08-06-2020 Subsequent hospital visit by physician Anita Rowland MD Work Phone: [facility] Comment on above: Arrived Start: 06-10-2020 End: 06-10-2020 ambulatory MOISES PATEL [facility] Start: 06-10-2020 End: 06-10-2020 Clinical Support Cassandra Stewart RN [facility] Comment on above: Other specified comp lications of surgical and medical care, not elsewhere classified, initial encounter (Primary Dx) Arrived Medication Refill Start: 06-02-2020 End: 06-02-2020 Subsequent hospital visit by physician Anita Rowland MD Work Phone: [facility] Start: 05-28-2020 End: 06-01-2020 ambulatory ANITA ROWLAND [facility] Start: 05-28-2020 End: 05-28-2020 Office outpatient visit 40 minutes Anita Rowland MD Work Phone: [facility] Comment on above: Essential hypertensi on (Primary Dx); Mixed hyperlipidemia; Coronary artery disease involving [place] coronary artery of [place] heart without angina pectoris; PAD (peripheral artery disease) (HCC); Centrilobular emphysema (HCC); ISAC (obstructive sleep apnea); Nicotine abuse; Pre-procedure lab exam; Abnormal stress test Start: 05-28-2020 End: 05-28-2020 Patient encounter status Anita Rowland MD Work Phone: [facility] Start: 05-28-2020 End: 05-28-2020 Subsequent hospital visit by physician Anita Rowland MD Work Phone: [facility] Comment on above: Arrived Start: 05-23-2020 End: 05-23-2020 Patient encounter procedure MOISES [facility] Start: 05-18-2020 End: 05-18-2020 Orders Only Tiffany Leo [facility] Comment on above: Pre-procedure lab ex am (Primary Dx) Start: 04-21-2020 End: 04-21-2020 Orders Only Alicja Nieves Work Phone: [facility] Start: 04-13-2020 End: 04-13-2020 Refill Tiffany Leo [facility] Comment on above: Medication Refill Start: 04-12-2020 End: 04-12-2020 Refill Rubi Pratt [facility] Comment on above: Medication Refill Start: 12-05-2019 End: 12-05-2019 Patient encounter procedure MOISES AGUILERA [facility] Start: 10-17-2019 End: 10-17-2019 Documentation procedure Rubi Pratt [facility] Start: 10-16-2019 End: 10-16-2019 Subsequent hospital visit by physician Anita Rowland Work Phone: [facility] Comment on above: TIA (transient ische gustavo attack) Start: 10-15-2019 End: 10-16-2019 Emergency department patient visit Andreas Barfield Work Phone: [facility] Comment on above: Near syncope (Primar y Dx) Start: 10-15-2019 End: 10-15-2019 Office outpatient visit 25 minutes Anita Rowland Work Phone: [facility] Comment on above: TIA (transient ische gustavo attack) (Primary Dx); Essential hypertension; Mixed hyperlipidemia; Coronary artery disease involving [place] coronary artery of [place] heart without angina pectoris; Centrilobular emphysema (HCC); ISAC on CPAP; Nicotine abuse Start: 09-22-2019 Patient encounter procedure MOISES AGUILERA [facility] Start: 09-22-2019 End: 09-23-2019 Emergency department patient visit Ana Ruizjanki Weaver Work Phone: [facility] Comment on above: Acute CVA (cerebrova scular accident) (HCC) (Primary Dx) Start: 04-03-2019 End: 04-03-2019 Office outpatient visit 15 minutes Carlo Mercedes Work Phone: [facility] Comment on above: Medication managemen t (Primary Dx); Coronary artery disease, angina presence unspecified, unspecified vessel or lesion type, unspecified whether [place] or transplanted heart Start: 03-17-2019 End: 03-17-2019 Patient encounter procedure Carlo Mercedes Work Phone: [facility] Comment on above: S/P CABG (coronary a rtery bypass graft) (Primary Dx) Start: 03-13-2019 End: 03-13-2019 Subsequent hospital visit by physician Carlo Mercedes Work Phone: [facility] Comment on above: Arrived Start: 03-11-2019 End: 03-11-2019 Patient encounter procedure Kristin Walker Work Phone: [facility] Comment on above: S/P CABG (coronary a rtery bypass graft) (Primary Dx) Start: 03-10-2019 Refill Kristin lopez PA-C Work Phone: [facility] Comment on above: Medication Refill Start: 03-05-2019 End: 03-05-2019 Documentation procedure Kristinkyler Walker Work Phone: [facility] Start: 02-26-2019 End: 02-26-2019 Postop follow up visit related to original px Kristin Walkergabrielle Walker Work Phone: [facility] Comment on above: S/P CABG (coronary a rtery bypass graft) (Primary Dx) Start: 02-25-2019 End: 02-26-2019 Emergency department patient visit Fausto Alejandro Work Phone: [facility] Department Comment on above: Pleuritic chest pain (Primary Dx) Start: 02-21-2019 End: 02-21-2019 Postop follow up visit related to original px Kristin Machuca Alphonse Work Phone: [facility] Comment on above: S/P CABG (coronary a rtery bypass graft) (Primary Dx) Start: 02-21-2019 End: 02-21-2019 Subsequent hospital visit by physician Jacob Cam Work Phone: [facility] Comment on above: S/P CABG (coronary a rtery bypass graft) Start: 02-18-2019 End: 02-18-2019 Documentation procedure Kristin Byrnes Work Phone: [facility] Start: 02-13-2019 End: 02-13-2019 Postop follow up visit related to original px Kristin Walkergabrielle Walker Work Phone: [facility] Comment on above: S/P CABG (coronary a rtery bypass graft) (Primary Dx) Start: 02-13-2019 End: 02-13-2019 Subsequent hospital visit by physician Kristin Byrnes Work Phone: [facility] Comment on above: S/P CABG x 1 Start: 02-06-2019 End: 02-06-2019 Postop follow up visit related to original px Jacob Cam Work Phone: [facility] Comment on above: S/P CABG x 1 (Primar y Dx) Start: 02-06-2019 End: 02-06-2019 Subsequent hospital visit by physician Kristin Walker Work Phone: [facility] Comment on above: S/P CABG (coronary a rtery bypass graft) Start: 02-02-2019 End: 02-04-2019 Subsequent hospital visit by physician Arvin Gilliam Work Phone: [facility] Comment on above: S/P CABG x 1 Start: 02-02-2019 End: 02-02-2019 Subsequent hospital visit by physician Kristin Walker Work Phone: [facility] Comment on above: Chest pain, unspecif ied type Start: 01-31-2019 End: 01-31-2019 Documentation procedure Kristin Walker Work Phone: [facility] Start: 01-31-2019 End: 01-31-2019 Postop follow up visit related to original px Kristin Walker Work Phone: [facility] Comment on above: S/P CABG (coronary a rtery bypass graft) (Primary Dx) Start: 01-31-2019 End: 01-31-2019 Subsequent hospital visit by physician Kristin Byrnes Work Phone: [facility] Comment on above: S/P CABG (coronary a rtery bypass graft) Start: 01-21-2019 End: 01-21-2019 Evaluation and management of inpatient Kristin Byrnes Work Phone: [facility] Start: 01-17-2019 End: 01-29-2019 Evaluation and management of inpatient Ana Ruizjanki Weaver Work Phone: [facility] Comment on above: Chest pain, atypical (Primary Dx); Type 2 diabetes mellitus without complication, without long-term current use of insulin (HCC); Coronary artery disease, angina presence unspecified, unspecified vessel or lesion type, unspecified whether [place] or transplanted heart; Type 2 diabetes mellitus with other circulatory complications (HCC); S/P CABG x 1 Start: 01-04-2019 End: 01-04-2019 Emergency department patient visit Brian Cordoba Work Phone: [facility] Comment on above: COPD exacerbation (H CC) (Primary Dx) Start: 12-26-2018 End: 12-26-2018 Office outpatient visit 25 minutes Maykel Whitney Work Phone: [facility] Comment on above: Coronary artery dise ase involving [place] coronary artery of [place] heart with angina pectoris (HCC) (Primary Dx); Acute on chronic diastolic heart failure (HCC) Start: 12-25-2018 End: 12-25-2018 Subsequent hospital visit by physician Patricia Louis Work Phone: [facility] Comment on above: Chronic systolic con gestive heart failure (HCC) Start: 12-18-2018 End: 12-18-2018 Subsequent hospital visit by physician Patricia Louis Work Phone: [facility] Comment on above: Chronic systolic con gestive heart failure (HCC) Start: 12-10-2018 End: 12-10-2018 Subsequent hospital visit by physician Patricia Louis Work Phone: [facility] Comment on above: Chronic systolic hea rt failure (HCC); Hypertension, unspecified type; Coronary artery disease involving [place] coronary artery of [place] heart without angina pectoris Start: 11-26-2018 Refill Patricia Morales ax [employer] Work Phone: [facility] Comment on above: Medication Refill Start: 09-27-2018 End: 09-27-2018 Emergency department patient visit Jesúscam Erik Work Phone: [facility] Emergency Department Comment on above: Acute exacerbation o f chronic obstructive pulmonary disease (COPD) (HCC) (Primary Dx) Start: 01-21-2018 End: 01-21-2018 Patient encounter procedure Other Other [facility] Start: 01-11-2018 End: 01-11-2018 Patient encounter procedure Sophia Jarad Llanos [facility] Comment on above: Other (ROSA Attempt.) Start: 01-08-2018 End: 01-09-2018 Patient encounter procedure Yareli Platayuliana Facility:[facility] Start: 01-07-2018 Patient encounter procedure Patricia L. Sruthi Facility:[facility] Start: 01-07-2018 End: 01-07-2018 Office outpatient visit 25 minutes Patricia Rodríguez Sruthi Work Phone: [facility] Comment on above: Chronic systolic hea rt failure (HCC) (Primary Dx); Essential hypertension; Coronary artery disease involving [place] coronary artery of [place] heart without angina pectoris Start: 09-23-2017 End: 09-25-2017 Patient encounter procedure Sofie Daigle Facility:[facility] Start: 09-20-2017 End: 09-20-2017 Office outpatient visit 25 minutes Patricia L. Sruthi Work Phone: [facility] Start: 09-20-2017 Refill Patricia Westbrooku ax [employer] WORK[employer] Work Phone: [facility] Comment on above: Medication Refill Start: 09-11-2017 End: 09-11-2017 Emergency department patient visit Samira Monzon Facility:[facility] Start: 06-11-2017 Refill Izabel Earl [facility] Start: 03-08-2017 End: 03-08-2017 Ambulatory Fitz Mg Work Phone: [facility] Start: 01-18-2017 End: 01-18-2017 Ambulatory Carola Lyle Work Phone: [facility] Start: 12-08-2016 Office outpatient vi sit 15 minutes Bev Tolentino Work Phone: [facility] Start: 11-23-2016 Office outpatient vi sit 15 minutes Bev Thomas Exten Work Phone: [facility] Start: 11-02-2016 End: 11-02-2016 Office outpatient visit 15 minutes Bev Thomas Rajan Work Phone: [facility] Comment on above: Leukocytosis, unspec ified type (Primary Dx) Start: 10-26-2016 End: 10-26-2016 Patient encounter procedure Bev Thomas Rajan Work Phone: [facility] Start: 10-26-2016 Office/outpatient visit, est, level 4 Bev Thomas Rajan Work Phone: [facility] Start: 10-20-2016 End: 10-20-2016 Ambulatory Moises Patel Work Phone: [facility] Start: 10-20-2016 End: 10-20-2016 Ambulatory Moises Patel Work Phone: [facility] Start: 10-12-2016 End: 10-12-2016 Patient encounter procedure Moises Patel Work Phone: [facility] Start: 10-12-2016 End: 10-12-2016 Patient encounter procedure Moises Patel Work Phone: [facility] Start: 09-18-2016 End: 09-18-2016 Patient encounter procedure Patricia Anne Louis Work Phone: [facility] Start: 09-18-2016 Office/outpatient visit, est, level 3 Patricia Bowersx Work Phone: [facility] Start: 06-21-2016 Refill Patricia Westbrooku ax [employer] Work Phone: [facility] Comment on above: Medication Refill Start: 03-30-2016 Refill Patricia Westbrooku ax HORTICULTURE WORKER Work Phone: [facility] Comment on above: Medication Refill Start: 10-08-2015 Refill Patricia Westbrooku ax HORTICULTURE WORKER Work Phone: [facility] Comment on above: Medication Refill Procedures Date Procedure Procedure Detail Performing Clinician Start: 12-07-2022 CT of left shoulder DO Jasen Campbell Work Phone: Start: 12-07-2022 Antibody screen Jose Raul Campbell Comment on above: Result Comment: PERF ORMED BY: [facility] [place] [address] PATHOLOGIST SCALPER OPERATOR TIBURCIO POWERS M.D. Start: 12-07-2022 Plain X-ray [...] Start: 02-25-2019 UGALDE TOP Fausto Ladd n [place] Work Phone: Start: 02-25-2019 LIGHT GREEN TOP Fausto cosby Crouse Work Phone: Start: 02-25-2019 RAINBOW DRAW Fausto Ladd n [place] Work Phone: Start: 02-25-2019 Basic metabolic 2000 [...] [Mass/volume] in Serum or Plasma Fausto Laddn [place] Work Phone: Start: 02-25-2019 Troponin measurement Mi [...] Jim Work Phone: Start: 01-27-2019 Radiography of xnoxwu-fxermy-zydqhcg Kristin Walker Work Phone: Start: 01-27-2019 Echography [...] Magnesium [Mass/volu me] in Serum or Plasma Kirstin Walker Work Phone: Start: 01-27-2019 Glucose [Mass/volume [...] of arteri al blood gas studies Generic [facility] Work Phone: Start: 01-24-2019 End: 01-24-2019 Glucose [Mass/volume] in Blood Nova Barrera Diandra Work Phone: Start: 01-24-2019 Evaluation of arteri al blood gas studies Generic [facility] Work Phone: Start: 01-24-2019 Glucose [Mass/volume ] in Blood jax Barrera Diandra Work Phone: Start: 01-24-2019 Calcium.ionized [Mas s/volume] in Serum or Plasma Kristin Abraham [employer] Work Phone: Start: 01-24-2019 aPTT in Blood by Coa gulation assay Kristin Abraham [employer] Work Phone: Start: 01-24-2019 Basic metabolic 2000 panel - Serum or Plasma Kristin Abraham [employer] Work Phone: Start: 01-24-2019 Complete blood count with white cell differential, automated Kristin Abraham [employer] Work Phone: Start: 01-24-2019 Complete blood count with white cell differential, manual Kristin Abraham [employer] Work Phone: Start: 01-24-2019 Fibrinogen [Mass/vol ume] in Platelet poor plasma by Coagulation assay Kristin Abraham [employer] Work Phone: Start: 01-24-2019 INR in Platelet poor plasma by Coagulation assay Kristin Abraham [employer] Work Phone: Start: 01-24-2019 Magnesium [Mass/volu me] in Serum or Plasma Kristinkyler Byrnes Work Phone: Start: 01-24-2019 Evaluation of arteri al blood gas studies Generic [facility] Work Phone: Start: 01-24-2019 End: 01-24-2019 [...] 01-24-2019 CORONARY ARTERY BYPASS GRAFT OFF PUMP Neo Mcneil Work Phone: Start: 01-24-2019 Packed RBC [...] of abuse urine screening test Kristin Jarad [employer] Work Phone: Start: 01-22-2019 Urinalysis Kristin Alannah marquis Titley Work Phone: Start: 01-22-2019 APTT - reference Maykel Whitney Work Phone: Start: 01-22-2019 Basic metabolic 2000 panel - Serum or Plasma Kristin Lee [employer] Work Phone: Start: 01-22-2019 Complete blood count with white cell differential, automated Kristin Abraham [employer] Work Phone: Start: 01-22-2019 Complete blood count with white cell differential, manual Kristin Lee [employer] Work Phone: Start: 01-21-2019 Glucose [Mass/volume ] in Blood Nova Jim Work Phone: Start: 01-21-2019 APTT - reference Mirna Rodriguez Work Phone: Start: 01-21-2019 Glucose [Mass/volume ] in Blood Nova Jim Work Phone: Start: 01-21-2019 Contrast echocardiography Kristin Jarad [employer] Work Phone: Start: 01-21-2019 Glucose [Mass/volume ] in Blood Nova Jim Work Phone: Start: 01-21-2019 Bacteria identified in Unspecified specimen by Aerobe culture Kristin Lee [employer] Work Phone: Start: 01-21-2019 Standard chest X-ray Nasim Abraham Titley Work Phone: Start: 01-21-2019 Doppler ultrasonogra phy of artery of lower limb Kristin Abraham [employer] Work Phone: Start: 01-21-2019 COMPLETE PFT Kristin Grijalva [employer] Work Phone: Start: 01-21-2019 Basic metabolic 2000 panel - Serum or Plasma Kristin Abraham [employer] Phone: Start: 01-21-2019 Complete blood count with white cell differential, automated Kristin Abraham [employer] Work Phone: Start: 01-21-2019 Complete blood count with white cell differential, manual Kristin Abraham [employer] Work Phone: Start: 01-20-2019 Carotid artery doppl er assessment Kristin Abraham [employer] Work Phone: Start: 01-20-2019 Electrocardiogram Provi malinda Not In System Start: 01-20-2019 Cul bact xcpt urine blood/stool aerobic isol Kristin Abraham [employer] Work Phone: Start: 01-20-2019 Evaluation of arteri al blood gas studies Generic [facility] Work Phone: Start: 01-20-2019 Amylase measurement, body fluid Kristin Abraham [employer] Work Phone: Start: 01-20-2019 Blood type and Indir ect antibody screen panel - Blood Kristin Abraham [employer] Phone: Start: 01-20-2019 Hemoglobin A1c/Hemoglobin.total in Blood Kristin Abraham [employer] Work Phone: Start: 01-20-2019 Hepatic function 200 0 panel - Serum or Plasma Kristin Abraham [employer] Phone: Start: 01-20-2019 INR in Platelet poor plasma by Coagulation assay Kristin Abraham [employer] Phone: Start: 01-20-2019 Prealbumin [Mass/vol ume] in Serum or Plasma Kristin Abraham [employer] Phone: Start: 01-20-2019 Thyrotropin [Units/v olume] in [...] System Start: 09-28-2018 Assay of troponin quantitative [facility] Start: 09-28-2018 Natriuretic peptide [facility] Start: 09-27-2018 Assay of troponin quantitative [facility] Start: 09-27-2018 Fibrin dgradj produc ts d-dimer quantitative [facility] Start: 09-27-2018 Complete blood count with white cell differential, automated Nathanael Valencia Work Phone: Start: 09-27-2018 Complete blood count with white cell differential, manual [employer] [place] Work Phone: Start: 09-27-2018 Radiologic exam ches t single view Nathanael Valencia Work Phone: Start: 09-27-2018 Basic metabolic pane l calcium total [facility] Start: 09-27-2018 POC CBC AND DIFFERENTIAL Jesúscam Valencia Work Phone: Start: 09-27-2018 End: 09-28-2018 12 lead ECG Jesúscam Valencia Work Phone: Start: 05-27-2015 Colonoscopy Tiffany ovalle RN Plan of Treatment Date Care Activity Detail Author Start: 08-08-2036 Pneumococcal Vaccine: Ped or At-Risk (2 of 2 - PPSV23) Pneumococcal Vaccine: Ped or At-Risk (2 of 2 - PPSV23) [facility] Start: 05-26-2025 Screening for malignant neoplasm of colon [facility] Start: 11-07-2023 Prostate specific antigen measurement PSA Level [facility] Start: 10-13-2022 Influenza vaccination Sequential Influenza Vaccine (Season Ended) [facility] Start: 03-29-2022 End: 03-29-2022 Patient encounter procedure 03/29/2022 Office Visit Family Medicine Moises Patel MD [address] [place] [id number] [facility] Start: 02-05-2022 Hemoglobin A1c measurement A1C [facility] Start: 10-31-2021 End: 10-31-2021 Patient encounter procedure 10/31/2021 Office Visit Cardiology Anita Rowland MD [address] [place] [address] [facility] Start: 10-13-2021 Influenza vaccination [facility] Start: 08-08-2021 Administration of herpes zoster vaccine Zoster Vaccines (1 of 2) [facility] Start: 08-08-2021 Prostate specific antigen measurement PROSTATE CANCER SCREENING DISCUSSION [facility] Start: 08-08-2021 Screening for malignant neoplasm of colon Flexible sigmoidoscopy [facility] Start: 08-08-2021 Zoster vaccine hzv live for subcutaneous use ZOSTER (SHINGLES) VACCINE (1 of 2) [facility] Start: 10-13-2020 Influenza vaccination [facility] Start: 10-01-2020 COVID-19 VACCINE (3 - Booster for Pfizer series) COVID-19 VACCINE (3 - Booster for Pfizer series) [facility] Start: 09-24-2020 End: 09-24-2020 Patient encounter procedure 09/24/2020 Office Visit Pulmonary Disease Valerie Carreno, PICK PULLING MACHINE TENDER-PATIENT FINANCIAL SERVICES MANAGER [address] [address] [facility] Pulmonary Disease [facility] Start: 08-06-2020 COVID-19 Vaccine (2 - Pfizer 2-dose series) COVID-19 Vaccine (2 - Pfizer 2-dose series) [facility] Start: 08-06-2020 COVID-19 Vaccine (2 - Pfizer series) COVID-19 Vaccine (2 - Pfizer series) [facility] Start: 07-12-2020 End: 08-10-2021 Ultrasound duplex arterial arm left Ultrasound duplex arterial arm left Vascular Ultrasound Routine Other specified complications of surgical and medical care, not elsewhere classified, initial encounter Expected: 07/12/2020, Expires: 08/10/2021 [facility] Comment on above: Expected: 07/12/2020, Expires: Start: 07-09-2020 End: 07-09-2020 Patient encounter procedure 07/09/2020 Appointment Cardiology Anita Rowland MD [address] [place] [address] [phone] [facility] Start: 06-02-2020 Subsequent hospital visit by physician 06/02/2020 Hospital Encounter Cardiology Anita Rowland MD [address] [place] [address] [phone] [facility] Start: 05-28-2020 End: 05-28-2020 Appointment [facility] Start: 03-24-2020 HbA1c (Bld) [Mass fraction] A1C [facility] Start: 03-24-2020 Hemoglobin A1c measurement A1C [facility] Start: 02-26-2020 Screening for malignant neoplasm of lung Low-dose CT Lung Cancer Screen [facility] Start: 12-08-2019 End: 12-08-2019 Office Visit 12/08/2019 Office Visit Cardiology Anita Rowland MD [address] [place] [address] [phone] [facility] Start: 11-07-2019 End: 11-07-2019 Appointment 11/07/2019 Appointment Cardiology Anita Rowland MD [address] [place] [address] [phone] [facility] Start: 11-05-2019 End: 11-05-2019 Office Visit 11/05/2019 Office Visit Neurology Ginny Rushing CNP [address] [address] [phone] [facility] Start: 10-16-2019 End: 10-16-2019 Appointment 10/16/2019 Appointment Cardiology Anita Rowalnd MD [address] [place] [address] [phone] [facility] Start: 10-14-2019 Influenza vaccination Sequential Influenza Vaccine (#1) [facility] Start: 10-14-2019 Influenza vaccination given Sequential Influenza Vaccine (#1) [facility] Start: 09-30-2019 End: 09-30-2019 Office Visit 09/30/2019 Office Visit Cardiology Anita Rowland MD [address] [place] [address] [phone] [facility] Start: 07-31-2019 End: 07-31-2019 Appointment [facility] Start: 07-22-2019 HbA1c (Bld) [Mass fraction] A1C [facility] Start: 06-25-2019 End: 06-25-2019 Treatment 06/25/2019 Treatment Cardiac Carlo Berry MD [address] [place] [address] [phone] [facility] Start: 06-23-2019 End: 06-23-2019 Treatment 06/23/2019 Treatment Cardiac Carlo Berry MD [address] [place] [address]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 ov [facility] 10-24-2021 Miscellaneous Notes Formattin g of this note might be different from the original. Pt was last seen by Dr. Rowland in 06/02, with an upcoming ov in 11/03 Refill appropriate until ov documented in this encounter [facility] 10-19-2021 Telephone encount er Note Pt was last seen by Dr. Rowland in 05/2020, w/ upcoming ov in 10/2021. Refill appropriate until next ov. [facility] 10-19-2021 Miscellaneous Notes Formattin g of this note might be different from the original. Pt was last seen by Dr. Rowland in 05/2020, w/ upcoming ov in 10/2021. Refill appropriate until next ov. documented in this encounter [facility] 10-11-2021 Telephone encount er Note Patient was last seen 05/2020 and has a follow up scheduled 10/31/2021. Refill appropriate until next ov [facility] 10-11-2021 Miscellaneous Notes Formattin g of this note might be different from the original. Patient was last seen 05/2020 and has a follow up scheduled 10/31/2021. Refill appropriate until next ov documented in this encounter [facility] 07-06-2021 Telephone encount er Note Refill needed to local pharmacy. Last OV 06/10/20. Follow up pending. [facility] 07-06-2021 Miscellaneous Notes Formattin g of this note might be different from the original. Refill needed to local pharmacy. Last OV 06/10/20. Follow up pending. documented in this encounter [facility] 05-23-2021 Telephone encount er Note Scheduling to contact for ov Last seen 05/28/20 w/ Dr. Rowland Recall 6 mo [facility] 05-23-2021 Miscellaneous Notes Formattin g of this note might be different from the original. Scheduling to contact for ov Last seen 05/28/20 w/ Dr. Rowland Recall 6 mo documented in this encounter [facility] 01-17-2021 Miscellaneous Notes Refill needed to local pharmacy. Last OV with Dr. Rowland 05/28/20. documented in this encounter [facility] 09-15-2020 History of Presen t illness Narrative Follow Up Visit Fernando Helton [id number] 1970 09/15/2020 Chief Complaint Patient presents with [...] disease) Essential hypertension, benign Head pain Hyperlipidemia CA (myocardial infarction) 01/2012, 04/2012 x2 Neck pain ISAC on CPAP 07/06/2020 Past Surgical History: Procedure Laterality Date OTHER SURGICAL 2019 open heart surgery LUNG SURGERY 2019 drainage of fluid on lung ARTHROSCOPY SHOULDER W/ BICEPS TENODESIS Left 05/08/2013 Laterality: Left; Surgeon: Louise Waldron MD; Location: [facility] MAIN OR SHOULDER SURGERY Left 11/22/11 SINUS [...] Social Gatherings with Friends and Family: Attends Anabaptism Services: Active Member of Clubs or Organizations: [...] of breath, Disp: 1 Each, Rfl: 0 Pplofpqlfvd-Ypdzydxdf-Tplmem (Trelegy Ellipta) 200-62.5-25 MCG/INH Aerosol Powder, breath [...] Mites/D.P., Class 1.04 (A) ELM, IGE <0.10 [place], IGE <0.10 [place], [place] 2.77 (A) [...] Moises Patel MD documented in this encounter [facility] 08-19-2020 Miscellaneous Notes Refill needed to local pharmacy. Last OV with Dr. Rowland May 2020. documented in this encounter [facility] 08-06-2020 Miscellaneous Notes Last OV 05/28/20. Refills appropriate. documented in this encounter [facility] 06-10-2020 Miscellaneous Notes Order needed to local pharmacy. One week sample given for Xarelto 20mg PO daily. Coupon also given for refill pickup. Education handouts given. documented in this encounter [facility] 06-10-2020 History of Presen t illness Narrative Dr. Rowland notified of preliminary results of arterial duplex. Patient discussing results with Dr. Rowland and new orders received for Xarelto 20mg daily. Instructional handout given. Spoke to with recommendations as well. documented in this encounter [facility] 06-10-2020 History of Presen t illness [...] radial pulse palpated. documented in this encounter [facility] 06-02-2020 Hospital Discharg e instructions Princess Cisneros RN - 06/02/2020 [facility] Post Cardiac Catheterization Discharge Instructions Site Care Leave Bandage in place the night of your catheterization. Watch for any bleeding or oozing from the site. If this occurs, lie flat and place direct pressure on the bandage for 20 minutes. If bleeding reoccurs call [facility]. For groins, remove your bandage the [...] shower 24 hours after the procedure. Call [facility] at [phone] if you notice any of the following: [...] need of prescription assistance, please notify the [facility] nurse or call the office. If you were prescribed Plavix (clopidogrel), Effient (prasugrel), or Brilinta (ticagrelar) after your procedure, DO NOT STOP taking this medication unless told to do so by your [facility] research neuropsychologist. Follow up appointments, tests or procedures will be on your discharge paperwork under What's next. Please call [facility] at [phone] to reschedule any appointments if needed or if you have any questions or concerns. Thank you! documented in this encounter [facility] 06-01-2020 History of Presen t illness Narrative Called and notified patient of time change for cath tomorrow. Patient to arrive to the hospital at 0800 for cath at 1000. Patient verbalizes understanding. documented in this encounter [facility] 05-28-2020 Miscellaneous Notes Associated Problem(s): COPD (chronic obstructive pulmonary disease) (HCC) Patient reports he has discontinued tobacco abuse. Associated Problem(s): ISAC (obstructive sleep apnea) Noncompliant with CPAP therapy. Associated Problem(s): Coronary artery disease involving [place] coronary artery of [place] heart without angina pectoris Patient has a [...] intensified as tolerated. documented in this encounter [facility] 05-28-2020 History of Presen t illness Narrative CARDIOLOGY PROGRESS NOTE [facility] [address] ([address]) [facility] [address] [facility] [id number] Physicians: Moises Patel MD (Family); [...] not describing palpitations. Patient was hospitalized at [facility] in an observational stay unit for [...] plaque stabilization therapy. Coronary artery disease involving [place] coronary artery of [place] heart without angina pectoris Patient has a [...] review of systems obtained by the medical records library professor. Vitals: Vitals: 05/28/20 1605 BP: (!) 149/88 Pulse: 78 SpO2: 96% Weight: 121.6 kg (268 lb) Height: 5' 5.98 1. Essential hypertension 2. Mixed hyperlipidemia 3. Coronary artery disease involving [place] coronary artery of [place] heart without angina pectoris 4. PAD (peripheral artery disease) (HCC) 5. Centrilobular emphysema (HCC) 6. ISAC (obstructive sleep apnea) 7. Nicotine abuse 8. Pre-procedure lab exam 9. Abnormal stress test Anita Rowland MD documented in this encounter [facility] 05-28-2020 Instructions Rubi Pratt RN - 05/28/2020 4:33 PM EDT Tiffany Leo BSN, driver merchandiser for Anita Rowland MD [address] [facility], 3rd Floor [place] [address] General office (Scheduling) Covid Testing Prior to your procedure or test you will need to have a test to rule out Covid 19. This is an oral swab that is done at a drive-up testing site in [place]. You are to have this test completed no earlier than 96 hours but no less than 72 hours before your cardiac procedure or test. The testing site is at [address] [place] [address] in [place]. It is off of [address] between [address] and [facility]. The hours of testing are Sunday [...] Tuesday June 02, 2020 Please arrive at [facility] and check in at the Outpatient [...] questions or concerns please contact us at [phone]. documented in this encounter [facility] 06-11-2017 Telephone encount er Note Pts left a VM requesting refills on three of the pts medications. [facility] 06-11-2017 Miscellaneous Notes Formattin g of this note might be different from the original. Pts left a VM requesting refills on three of the pts medications. documented in this encounter [facility] Evaluation note Diagnosis Essential hypertension- Primary Unspecified essential hypertension Mixed hyperlipidemia Coronary artery disease involving [place] coronary artery of [place] heart without angina pectoris PAD (peripheral artery disease) (HCC) Unspecified peripheral vascular disease Centrilobular emphysema (HCC) ISAC (obstructive sleep apnea) Obstructive sleep apnea (adult) (pediatric) Nicotine abuse Pre-procedure lab exam Pre-procedural laboratory examination Abnormal stress test Other nonspecific abnormal cardiovascular system function study documented in this encounter [facility] note* Diagnosis NSVT (nonsustained ventricular tachycardia) ([facility]) Abnormal EKG Nonspecific abnormal electrocardiogram (ECG) (EKG) documented in this encounter [facility] note* Diagnosis Other specified complications of surgical and medical care, not elsewhere classified, initial encounter- Primary documented in this encounter [facility] note* Diagnosis Other specified complications of surgical and medical care, not elsewhere classified, initial encounter- Primary documented in this encounter [facility] note* Diagnosis Other specified complications of surgical and medical care, not elsewhere classified, initial encounter documented in this encounter [facility] note* Diagnosis Other specified complications of surgical and medical care, not elsewhere classified, initial encounter documented in this encounter [facility] note* Diagnosis Chronic obstructive pulmonary disease with acute exacerbation- Primary Obstructive chronic bronchitis with exacerbation COPD with acute exacerbation Obstructive chronic bronchitis with exacerbation [facility] Inadequately controlled diabetes mellitus- Primary Type II or unspecified type diabetes mellitus without mention of complication, not stated as uncontrolled Insomnia, unspecified type documented in this encounter [facility]No assessment [facility] Work Phone: Hospital Discharge instructions Additional Instructions If your symptoms return/worsen or you develop any further concerns or symptoms please see your doctor or return to the emergency department immediately. Please be sure to follow-up with your primary care provider regarding today's visit as well as the lab and imaging results.[facility] Work Phone: Assessments Diagnosis Leukocytosis, unspecified ty pe - Primary Diagnosis Essential hypertension - Vivi emma Unspecified essential hypertension Chronic systolic heart failu re (HCC) Chronic systolic heart failure Coronary artery disease invo lving [place] coronary artery of [place] heart without angina pectoris Hyperlipidemia, unspecified hyperlipidemia type Diagnosis Leukocytosis, unspecified ty pe - Primary Diagnosis Leukocytosis, unspecified ty pe - Primary Diagnosis Chronic systolic heart failu re (HCC) - Primary Chronic systolic heart failure Essential hypertension Unspecified essential hypertension Coronary artery disease invo lving [place] coronary artery of [place] heart without angina pectoris Diagnosis Chronic systolic heart failu re (HCC) - Primary Chronic systolic heart failure Essential hypertension Unspecified essential hypertension Coronary artery disease invo lving [place] coronary artery of [place] heart without angina pectoris Diagnosis Leukocytosis, unspecified ty pe - Primary Diagnosis Acute exacerbation of chronic obstructive pulmonary disease (COPD) ([facility])- Primary Obstructive chronic bronchitis with exacerbation Diagnosis [...] unspecified vessel or lesion type, unspecified whether [place] or transplanted heart Diagnosis TIA (transient ischemic attack)- Primary Unspecified transient cerebral ischemia Essential hypertension Unspecified essential hypertension Mixed hyperlipidemia Coronary artery disease involving [place] coronary artery of [place] heart without angina pectoris Centrilobular emphysema ([facility]) ISAC on CPAP Nicotine abuse Diagnosis TIA (transient ischemic attack) Unspecified transient cerebral ischemia Diagnosis Chronic systolic heart failure (HCC) Chronic systolic heart failure Hypertension, unspecified type Coronary artery disease involving [place] coronary artery of [place] heart without angina pectoris Diagnosis Chronic systolic congestive heart failure ([facility]) Diagnosis Chest pain, atypical Type 2 diabetes mellitus without complication, without long-term current use of insulin ([facility]) Coronary artery disease, angina presence unspecified, unspecified vessel or lesion type, unspecified whether [place] or transplanted heart Type 2 diabetes mellitus with other circulatory complications ([facility]) S/P CABG x 1 Postsurgical aortocoronary bypass status Chest pain Unspecified chest pain ACS (acute coronary syndrome) ([facility]) Intermediate coronary syndrome PAD (peripheral artery disease) ([facility]) Unspecified peripheral vascular disease Diagnosis Pleuritic chest pain Painful respiration Diagnosis Near syncope- Primary COPD (chronic obstructive pulmonary disease) ([facility]) Chronic airway obstruction, not elsewhere classified Coronary artery disease involving [place] coronary artery of [place] heart without angina pectoris ISAC (obstructive sleep apnea) Obstructive sleep apnea (adult) (pediatric) Essential hypertension Unspecified essential hypertension TIA (transient ischemic attack) Unspecified transient cerebral ischemia Mixed hyperlipidemia Nicotine abuse Diagnosis COPD exacerbation ([facility]) Obstructive chronic bronchitis with exacerbation Diagnosis Coronary artery disease involving [place] coronary artery of [place] heart with angina pectoris ([facility])- Primary Acute on chronic diastolic heart failure ([facility]) Acute on chronic diastolic heart failure Diagnosis Acute CVA (cerebrovascular accident) ([facility]) Essential hypertension Unspecified essential hypertension Mixed hyperlipidemia Coronary artery disease involving [place] coronary artery of [place] heart without angina pectoris GERD (gastroesophageal reflux disease) Esophageal reflux PAD (peripheral artery disease) ([facility]) Unspecified peripheral vascular disease TIA (transient ischemic [...] and how you are feeling on Sunday. [phone] Please work your portion sizes and snacks [...] encounter* Patient Instructions* Kristin Walker PA-C - 02/13/2019 9:20 AM EST Continue [...] your care team or the office at [phone]. Please include medication name, pharmacy name, and [...] They will send two batteries and a cash accounting clerk. While you are wearing one of the batteries please have the other battery charging in the cash accounting clerk device. Please do not get the device [...] when results have been interpreted by a research neuropsychologist. If you have any questions please call [phone]. documented in this encounter* Patient Instructions* Ligia Koroma RN - 12/26/2018 4:05 PM EST Your nurse today was Ligia HURT who can be contacted at [phone]. You may also contact Kalina Bernal other nurse at [phone]. REFILLS: When in need of refills please call Ligia at the above number or the office at [phone]. Please include medication name and dose, pharmacy name and location, and specify 30-day or 90-day supply. Please check with your pharmacy within 24-48 hours of request for your refill. You must follow up as directed to continue current refills. Thank you! documented in this encounter History of Present Illness * Patricia Louis, HORTICULTURE WORKER - 01/07/2018 10:37 AM EST Formatting of this note may be different from the original. [facility] CARDIOLOGY HEART FAILURE CLINIC NAME: Fernando Helton DATE OF : 1970 MEDICAL RECORD#: [id number] SWING TENDER: TODAY'S DATE: 01/07/2018 Subjective Fernando Helton is [...] edema. 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 Mr. Helton has not seen a research neuropsychologist in some time. He will be scheduled [...] INCLUDES: Strong family hx w/ Father having CA/CABG at age 45. Mother w/ CA at 63 and CVA hx. The patient had an STEMI (anterior/lateral) in April 2012 required IABP and bare metal stenting. He was non-compliant w/ medications and had a anterior CA in 2014 w/ cardiac arrest and additional [...] 1998 CAD (coronary artery disease) CAD s/p [facility] with 1 stent in left main 07/2012, replaced 09/2014 Chest pain Circulation problem right leg COPD (chronic obstructive pulmonary disease) ([facility]) Fatigue GERD (gastroesophageal reflux disease) Headache HLD (hyperlipidemia) HTN (hypertension) Metabolic syndrome Mood disorder ([facility]) Obstructive sleep apnea Pneumomediastinum ([facility]) 01/2007 Rotator cuff tear, right 1997 s/p repair SLAP tear of shoulder 2011 left - s/p surgery to place [address] elevation myocardial infarction (STEMI) of anterolateral wall ([facility]) 05/09/12 Past Surgical History: Procedure Laterality Date [...] with patient. There is collaboration between the HORTICULTURE WORKER and the consulting/collaborating physician regarding this patient's [...] of multiple medical problems including CAD statuspost [facility] with 1 stent placed in the left [...] 1998 CAD (coronary artery disease) CAD s/p [facility] with 1 stent in left main 07/2012, replaced 09/2014 Chest pain Circulation problem right leg COPD (chronic obstructive pulmonary disease) ([facility]) Fatigue GERD (gastroesophageal reflux disease) Headache HLD (hyperlipidemia) HTN (hypertension) Metabolic syndrome Mood disorder ([facility]) Obstructive sleep apnea Pneumomediastinum ([facility]) 01/2007 Rotator cuff tear, right 1997 s/p repair SLAP tear of shoulder 2011 left - s/p surgery to place [address] elevation myocardial infarction (STEMI) of anterolateral wall ([facility]) 05/09/12 Past Surgical History: Procedure Laterality Date [...] seen by the PA. Dr. Arvin Gilliam, [facility] for Dr. 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 He [...] last 72 hours. 02/02/2019 CTA pulmonary arteries: [id number] effusion with mild atelectasis in the left [...] for discharge after thoracentesis Hold Plavix CPT: 28540 * Arvin Gilliam II, MD - 02/02/2019 [...] [place], PT - 03/11/2019 8:20 AM EST [facility] Cardiac [facility] [address] [place], [place] [id number] Office 03/11/2019 Patient: Fernando Helton : 1970 Primary Diagnosis: CABG The Cardiac Rehab Staff had the recent pleasure of meeting Fernando Helton for a consultation regardingoutpatient cardiac rehabilitation. As you recall, Mr. Helton has a history of CA 2012, CA/ cardiac arrest 2014, and CHF. He recently presented with anterior wall CA. Cardiac cath 01/20/19: EF 45%; occ mid LAD stent. He underwent CABG x 1 on 01/24/19. Risks and benefits associated with a cardiac rehabprogram were discussed along with his risk factors and a preliminary treatment plan and goals for the program. The Cardiac Rehab Staff will maintain contact with you throughout the 12-week program. Thank you for allowing Mr. Helton to participate in [facility] comprehensive risk [...] exercise prescription reviewed and approved by our medical sales specialist. Psychosocial: Patient scored a 3 on the [...] visit after single-vessel CABG (SPARKS to LAD) LUMMI-patient is a pleasant 48-year-old man with known [...] Medical History: Diagnosis Date Acute respiratory failure ([facility]) 09/2014 requring mechanical ventilation Anxiety Bilateral lower extremity edema R > L CAD (coronary artery disease) CAD s/p C with 1 stent in left main 07/2012, replaced 09/2014 Cardiac arrest with ventricular fibrillation ([facility]) 09/25/2014 CHF (congestive heart failure), NYHA class I, chronic, diastolic ([facility]) Chronic sinusitis Claudication of right lower extremity ([facility]) Cluster headache COPD (chronic obstructive pulmonary disease) (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 Bev Tolentino Metabolic syndrome Mood disorder ([facility]) Nasal fracture Obstructive sleep apnea noncompliant with CPAP Orthostatic dizziness with intermittent syncope Pericarditis 02/25/07; 09/23/17 Pneumomediastinum ([facility]) 01/12/2007 secondary to severe coughing spell & ruptured alveoli Rotator cuff tear, right 1997 s/p repair SLAP tear of shoulder 2011 left - s/p surgery to place [address] elevation myocardial infarction (STEMI) of anterolateral wall ([facility]) 05/09/2012 anterolateral STEMI involving left anterior descending coronary artery ([facility]) 09/25/2014 anterior Superficial thrombophlebitis of right upper extremity 12/26/2006 Past Surgical History: Procedure Laterality Date APPENDECTOMY 1998 BONE MARROW BIOPSY W/ ASPIRATION Left 11/27/2016 L posterior iliac crest; Dr. Bev Tolentino CABG OFF PUMP N/A 01/24/2019 Procedure: Coronary Artery Bypass graft x1 with Left Internal Mammary Artery graft, OFF PUMP; Surgeon: Neo Mcneil MD; Location: [facility]; Service: Cardiothoracic CARDIAC CATHETERIZATION 09/24/2014 [...] Heart Cath; Surgeon: Carlo Mercedes MD; Location: [facility]; Service: Cardiovascular IABP placement 05/09/[address] [...] file Gets together: Not on file Attends mormon service: Not on file Active member of [...] 10/15/2019 2:26 PM EDT CARDIOLOGY PROGRESS NOTE [facility] [address] ([address]) [facility] [address] [facility] [address] Physicians: Moises Patel MD (Family); [...] plaque stabilization therapy. Coronary artery disease involving [place] coronary artery of [place] heart without angina pectoris Patient has a [...] review of systems obtained by the medical records library professor. Vitals: Vitals: 10/15/19 1406 BP: (!) 142/85 BP Location: Right arm Patient Position: Sitting BP Cuff Size: X-large Adult Pulse: 83 SpO2: 95% Weight: 120.2 kg (265 lb 1.6 oz) Height: 5' 6 1. TIA (transient ischemic attack) 2. Essential hypertension 3. Mixed hyperlipidemia 4. Coronary artery disease involving [place] coronary artery of [place] heart without angina pectoris 5. Centrilobular emphysema (HCC) 6. ISAC on CPAP 7. Nicotine abuse Anita Rowland MD documented in this encounter* Slim Low, PATIENT FINANCIAL SERVICES MANAGER - 01/29/2019 9:56 AM EST Patient ID: Patient Name: Fernando Helton Admit Date: 01/17/2019 MR #: [id number] : 1970 Current location: [facility] Physicians: Moises Patel MD (Family); Kristin [...] replaced 09/2014 Cardiac arrest with ventricular fibrillation ([facility]) 09/25/2014 CHF (congestive heart failure), NYHA class I, chronic, diastolic (HCC) Chronic sinusitis Claudication of right lower extremity (HCC) Cluster headache COPD (chronic obstructive pulmonary disease) (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 Bev Tolentino Metabolic syndrome Mood disorder ([facility]) Nasal fracture Obstructive sleep apnea noncompliant with CPAP Orthostatic dizziness with intermittent syncope Pericarditis 02/25/07; 09/23/17 Pneumomediastinum ([facility]) 01/12/2007 secondary to severe coughing spell & ruptured alveoli Rotator cuff tear, right 1998 s/p repair SLAP tear of shoulder 2011 left - s/p surgery to place [address] elevation myocardial infarction (STEMI) of anterolateral wall ([facility]) 05/09/2012 anterolateral STEMI involving left anterior descending coronary artery ([facility]) 09/25/2014 anterior Superficial thrombophlebitis of right upper extremity 12/26/2006 Past Surgical History: Procedure Laterality Date APPENDECTOMY 1998 BONE MARROW BIOPSY W/ ASPIRATION Left 11/27/2016 L posterior iliac crest; Dr. Bev Tolentino CABG OFF PUMP N/A 01/24/2019 Procedure: Coronary Artery Bypass graft x1 with Left Internal Mammary Artery graft, OFF PUMP; Surgeon: Neo Mcneil MD; Location: [facility]; Service: Cardiothoracic CARDIAC CATHETERIZATION 09/24/2014 [...] Heart Cath; Surgeon: Carlo Mercedes MD; Location: [facility]; Service: Cardiovascular IABP placement 05/09/[address] 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) 09/2014 requring mechanical ventilation Anxiety Bilateral lower extremity edema R > L CAD (coronary artery disease) CAD s/p [facility] with 1 stent in left main 07/2012, replaced 09/2014 Cardiac arrest with ventricular fibrillation ([facility]) 09/25/2014 CHF (congestive heart failure), NYHA class I, chronic, diastolic ([facility]) Chronic sinusitis Claudication of right lower extremity ([facility]) Cluster headache COPD (chronic obstructive pulmonary disease) (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 Bev Tolentino Metabolic syndrome Mood disorder ([facility]) Nasal fracture Obstructive sleep apnea noncompliant with CPAP Orthostatic dizziness with intermittent syncope Pericarditis 02/25/07; 09/23/17 Pneumomediastinum ([facility]) 01/12/2007 secondary to severe coughing spell & ruptured alveoli Rotator cuff tear, right 1997 s/p repair SLAP tear of shoulder 2011 left - s/p surgery to place [address] elevation myocardial infarction (STEMI) of anterolateral wall ([facility]) 05/09/2012 anterolateral STEMI involving left anterior descending coronary artery ([facility]) 09/25/2014 anterior Superficial thrombophlebitis of right upper extremity 12/26/2006 Past Surgical History: Procedure Laterality Date APPENDECTOMY 1998 BONE MARROW BIOPSY W/ ASPIRATION Left 11/27/2016 L posterior iliac crest; Dr. Bev Tolentino CABG OFF PUMP N/A 01/24/2019 Procedure: Coronary Artery Bypass graft x1 with Left Internal Mammary Artery graft, OFF PUMP; Surgeon: Neo Mcneil MD; Location: [facility]; Service: Cardiothoracic CARDIAC CATHETERIZATION 09/24/2014 [...] in the left anterior descending by Dr. Rowalnd CORONARY STENT PLACEMENT 09/24/2014 Subacute stent thrombosis by Dr. Whitney. This may be in the setting of areas of restenosis within the LAD stent ETHMOIDECTOMY Bilateral 06/25/[address] Gaitan LEFT HEART CATH N/A 01/20/2019 Procedure: Left Heart Cath; Surgeon: Carlo Mercedes MD; Location: [facility]; Service: Cardiovascular IABP placement 05/09/[address] 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 He is from home with his spouse and is s/p Cabg post op day #3 An echo has been ordered along with a kub. * Johan Koch PA-C - 01/27/2019 7:44 AM EST Patient ID: Patient Name: Fernando Helton Admit Date: 01/17/2019 MR #: [id number] : 1970 Current location: [facility] Physicians: Moises Patel MD (Family); Kristin [...] L CAD (coronary artery disease) CAD s/p [facility] with 1 stent in left main 07/2012, replaced 09/2014 Cardiac arrest with ventricular fibrillation ([facility]) 09/25/2014 CHF (congestive heart failure), NYHA class I, chronic, diastolic ([facility]) Chronic sinusitis Claudication of right lower extremity ([facility]) Cluster headache COPD (chronic obstructive pulmonary disease) (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 Bev Tolentino Metabolic syndrome Mood disorder ([facility]) Nasal fracture Obstructive sleep apnea noncompliant with CPAP Orthostatic dizziness with intermittent syncope Pericarditis 02/25/07; 09/23/17 Pneumomediastinum (HCC) 01/12/2007 secondary to severe coughing spell & ruptured alveoli Rotator cuff tear, right 1998 s/p repair SLAP tear of shoulder 2011 left - s/p surgery to place [address] elevation myocardial infarction (STEMI) of anterolateral wall ([facility]) 05/09/2012 anterolateral STEMI involving left anterior descending coronary artery ([facility]) 09/25/2014 anterior Superficial thrombophlebitis of right upper [...] Dr. Rowland CARDIAC CATHETERIZATION Left 09/28/2015 Dr. oRwland Predominant single vessel CAD w/ no angiographic [...] Heart Cath; Surgeon: Carlo Mercedes MD; Location: [facility]; Service: Cardiovascular IABP placement 05/09/[address] [...] you. Electronically signed by: Johan Koch PA-C, [facility] 01/27/19 7:47 AM * Kristin Walker PA-C [...] for pain KUB Serum troponin x3 CPT: 70207 * Melinda Fernandez MD - 01/26/2019 7:51 AM EST Patient ID: Patient Name: Fernando Helton Admit Date: 01/17/2019 MR #: [id number] : 1970 Current location: [facility] Physicians: Moises Patel MD (Family); Kristin [...] Medical History: Diagnosis Date Acute respiratory failure ([facility]) 09/2014 requring mechanical ventilation Anxiety Bilateral lower extremity edema R > L CAD (coronary artery disease) CAD s/p [facility] with 1 stent in left main 07/2012, replaced 09/2014 Cardiac arrest with ventricular fibrillation ([facility]) 09/25/2014 CHF (congestive heart failure), NYHA class I, chronic, diastolic ([facility]) Chronic sinusitis Claudication of right lower extremity ([facility]) Cluster headache COPD (chronic obstructive pulmonary disease) (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 Bev Tolentino Metabolic syndrome Mood disorder ([facility]) Nasal fracture Obstructive sleep apnea noncompliant with CPAP Orthostatic dizziness with intermittent syncope Pericarditis 02/25/07; 09/23/17 Pneumomediastinum (HCC) 01/12/2007 secondary to severe coughing spell & ruptured alveoli Rotator cuff tear, right 1997 s/p repair SLAP tear of shoulder 2011 left - s/p surgery to place [address] elevation myocardial infarction (STEMI) of anterolateral wall ([facility]) 05/09/2012 anterolateral STEMI involving left anterior descending [...] Heart Cath; Surgeon: Carlo Mercedes MD; Location: [facility]; Service: Cardiovascular IABP placement 05/09/[address] [...] IVPB, 1,250 mg, Intravenous, Q12H, Pallavi Barnett [facility],PharmD, Last Rate: 250 mL/hr at 01/25/192058, 1,250 [...] will defer to the judgement of the research neuropsychologist. Attempted to obtain an echo, but informed [...] deep breath. OBJECTIVE: Right IJ cordis with Winfield-Isaiah catheter, right brachial arterial line, mediastinal and [...] flush 5 mL, 5 mL, Intravenous, Q8H JUVENICO, 5 mL at 01/25/19 0557 AND sodium [...] IVPB, 1,250 mg, Intravenous, Q12H, Pallavi Barnett [facility],PharmD, Stopped at 01/24/19 2107 vancomycin per pharmacy 1 each, 1 each, Intravenous, as indicated by pharmacokinetics, Kristin Anne PA-C * Melinda Fernandez MD - 01/25/2019 7:55 AM EST Patient ID: Patient Name: Fernando Helton Admit Date: 01/17/2019 MR #: [id number] : 1970 Current location: [facility] Physicians: Moises Patel MD (Family); Kristin [...] L CAD (coronary artery disease) CAD s/p [facility] with 1 stent in left main 07/2012, [...] Dr. Bev Tolentino Metabolic syndrome Mood disorder ([facility]) Nasal fracture Obstructive sleep apnea noncompliant with CPAP Orthostatic dizziness with intermittent syncope Pericarditis 02/25/07; 09/23/17 Pneumomediastinum ([facility]) 01/12/2007 secondary to severe coughing spell & ruptured alveoli Rotator cuff tear, right 1997 s/p repair SLAP tear of shoulder 2011 left - s/p surgery to place [address] elevation myocardial infarction (STEMI) of anterolateral wall ([facility]) 05/09/2012 anterolateral STEMI involving left anterior descending coronary artery ([facility]) 09/25/2014 anterior Superficial thrombophlebitis of right upper [...] [facility] CARDIAC CATHETERIZATION 11/24/[address] Rowland [facility] 05/27/2015 CORONARY ANGIOPLASTY 12/25/2014 PCI with balloon [...] Heart Cath; Surgeon: Carlo Mercedes MD; Location: [facility]; Service: Cardiovascular IABP placement 05/09/[address] 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 Cardiac arrest with ventricular fibrillation with Hulen on 09/24/2014 21. Acute respiratory failure requiring [...] on to chart N.p.o. after midnight CPT: 67409 * Delmi Donis MD - 01/23/2019 3:26 PM EST [facility] Medicine Inpatient Follow-up 01/23/2019 Delmi Donis MD [facility] Patient: Fernando Helton Date of : 1970 (48 y.o.) PCP: Moises Patel MD ASSESSMENT/PLAN: Fernando Helton 48 y.o. male presented with complains of Active Problems: Chest pain ACS (acute coronary syndrome) ([facility]) PAD (peripheral artery disease) ([facility]) PLAN: Coronary artery disease - pateint denies any chest pain. patient is status post left heart cath on 01/20 he was found to have an in-stent occlusion of the mid LAD. Cardiovascular surgery has been consulted patient scheduled for CABG on 01/24/2019, Dr. Mcneil following PAD; patient seen by vascular surgery today CA: ABIs have been done. Recommendation follow-up in [...] Fernando Helton Admit Date: 01/17/2019 MR #: [id number] : 1970 Current location: [facility] Physicians: Moises Patel MD (Family); Kristin [...] replaced 09/2014 Cardiac arrest with ventricular fibrillation ([facility]) 09/25/2014 CHF (congestive heart failure), NYHA class I, chronic, diastolic ([facility]) Chronic sinusitis Claudication of right lower extremity ([facility]) Cluster headache COPD (chronic obstructive pulmonary disease) (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 Bev Tolentino Metabolic syndrome Mood disorder ([facility]) Nasal fracture Obstructive sleep apnea noncompliant with CPAP Orthostatic dizziness with intermittent syncope Pericarditis 02/25/07; 09/23/17 Pneumomediastinum ([facility]) 01/12/2007 secondary to severe coughing spell & ruptured alveoli Rotator cuff tear, right 1997 s/p repair SLAP tear of shoulder 2011 left - s/p surgery to place [address] elevation myocardial infarction (STEMI) of anterolateral wall ([facility]) 05/09/2012 anterolateral STEMI involving left anterior descending coronary artery ([facility]) 09/25/2014 anterior Superficial thrombophlebitis of right upper extremity 12/26/2006 Past Surgical History: Procedure Laterality Date APPENDECTOMY 1998 BONE MARROW BIOPSY W/ ASPIRATION Left 11/27/2016 L posterior iliac crest; Dr. Bev Tolentino CARDIAC CATHETERIZATION 09/24/2014 Segment LV dysf., mild to moderate LV systolic impairment, moderate LV diastolic dysf.; single vessel CAD by Dr. Whiteny CARDIAC CATHETERIZATION 05/09/2012 Emergent. Severe LVSD EF [...] Heart Cath; Surgeon: Carlo Mercedes MD; Location: [facility]; Service: Cardiovascular IABP placement 05/09/[address] [...] ISAC and morbid obesity who presented to [facility] on 01/17/2019 with complaints of increasing [...] 20. Cardiac arrest with ventricular fibrillation with Hulen on 09/24/2014 21. Acute respiratory failure requiring [...] on to chart N.p.o. 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 He is from home with a spouse. Hehad a heart cath on 01/20 and is a consult with cardiovascular surg and had now been scheduled for aCABG on 01/24. Will follow for any discharge need. * Delmi Donis MD - 01/22/2019 10:05 AM EST [facility] Medicine Inpatient Follow-up 01/22/2019 Delmi Donis MD [facility] Patient: Fernando Helton Date of : 1970 (48 y.o.) PCP: Moises Patel MD ASSESSMENT/PLAN: Fernando Helton 48 y.o. male presented with complains of Active Problems: Chest pain ACS (acute coronary syndrome) (HCC) PAD (peripheral artery disease) ([facility]) PLAN: Chest pain; intermittent, continue to monitor on telemetry; patient is status post left heart cath on 01/20 he was found to have an in-stent occlusion of the mid LAD. Cardiovascular surgery has been consulted Coronary artery disease; cardiovascular surgery has patient was scheduled for CABG on 01/24/2019, Dr. Mcneil following PAD; patient seen by vascular surgery today CA: ABIs have been done. Recommendation follow-up in [...] 01/22/2019 8:52 AM EST Cardiology Progress Note [facility] Heart and Vascular Physicians Cardiology Sign-Off [...] have been negative, EKG showed old anterolateral CA with mild ST-T changes with d-dimer negative [...] Fernando Helton Admit Date: 01/17/2019 MR #: [id number] : 1970 Current location: [facility] Physicians: Moises Patel MD (Family); Kristin [...] Medical History: Diagnosis Date Acute respiratory failure ([facility]) 09/2014 requring mechanical ventilation Anxiety Bilateral lower extremity edema R > L CAD (coronary artery disease) CAD s/p [facility] with 1 stent in left main 07/2012, replaced 09/2014 Cardiac arrest with ventricular fibrillation ([facility]) 09/25/2014 CHF (congestive heart failure), NYHA class I, chronic, diastolic ([facility]) Chronic sinusitis Claudication of right lower extremity ([facility]) Cluster headache COPD (chronic obstructive pulmonary disease) (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 Bev Tolentino Metabolic syndrome Mood disorder ([facility]) Nasal fracture Obstructive sleep apnea noncompliant with CPAP Orthostatic dizziness with intermittent syncope Pericarditis 02/25/07; 09/23/17 Pneumomediastinum ([facility]) 01/12/2007 secondary to severe coughing spell & [...] Heart Cath; Surgeon: Carlo Mercedes MD; Location: [facility]; Service: Cardiovascular IABP placement 05/09/[address] [...] ISAC and morbid obesity who presented to [facility] on 01/17/2019 with complaints of increasing [...] 20. Cardiac arrest with ventricular fibrillation with Hulen on 09/24/2014 21. Acute respiratory failure requiring [...] General Cardiology Inpatient Follow-up Heart & Vascular [facility] 01/21/2019 Columba Rodriguez CNP [facility] Patient: Fernando Helton Date of : 1970 (48 y.o.) Referring Provider: No ref. provider found PCP: Moises Patel MD Assessment/Plan: ACS (acute coronary syndrome) ([facility]) Assessment & Plan Patient had presented 01/20/2019 with chest tightness associated with nausea and shortness of breath. Occasionally discomfort would radiate into the left jaw. Serial troponins have been negative, EKG shows old anterolateral CA with mild ST-T changes with d-dimer negative [...] Dr. Bev Tolentino Metabolic syndrome Mood disorder ([facility]) Nasal fracture Obstructive sleep apnea noncompliant with CPAP Orthostatic dizziness with intermittent syncope Pericarditis 02/25/07; 09/23/17 Pneumomediastinum ([facility]) 01/12/2007 secondary to severe coughing spell & ruptured alveoli Rotator cuff tear, right 1998 s/p repair SLAP tear of shoulder 2011 left - s/p surgery to place [address] elevation myocardial infarction (STEMI) of anterolateral wall ([facility]) 05/09/2012 anterolateral STEMI involving left anterior descending coronary artery ([facility]) 09/25/2014 anterior Superficial thrombophlebitis of right upper [...] Heart Cath; Surgeon: Carlo Mercedes MD; Location: [facility]PER[facility]; Service: Cardiovascular IABP placement 05/09/[address] [...] injection 20 mg 20 mg Intravenous Q8H COUNT INCLUDES THE [facility] Carlo Mercedes MD 20 mg at 01/21/19 [...] 5' 7 Wt 116.6 kg (257 lb) [id number]% BMI 40.25 kg/m Physical Examination: Physical Exam [...] Final Result by Interface, Lab Results In [place] Pyramis (01/17/2019 1219) Normal sinus rhythm Low voltage QRS Inferior infarct , age undetermined Cannot rule out Anteroseptal infarct , age undetermined Abnormal ECG ECG Cart Interpretation see physician note for interpretation. Confirmed by Brandy Kc ([id number]) on 01/17/2019 12:18:52 PM Columba Rodriguez CNP * Ashley Caruso CNP - 01/21/2019 12:30 PM EST [facility] Medicine Inpatient Follow-up 01/21/2019 Ashley Caruso CNP [facility] Patient: Fernando Helton Date of : 1970 (48 y.o.) PCP: Moises Patel MD ASSESSMENT/PLAN: Fernando Helton 48 y.o. male presented with complains of Active Problems: Chest pain ACS (acute coronary syndrome) ([facility]) PAD (peripheral artery disease) ([facility]) PLAN: Chest pain; intermittent, continue to monitor [...] PAD; patient seen by vascular surgery today CA: ABIs have been done. Recommendation follow-up in [...] 5' 7 Wt 116.6 kg (257 lb) [id number]% BMI 40.25 kg/m General Appearance: Alert, well [...] Navarro CNP - 01/20/2019 12:25 PM EST [facility] Medicine Inpatient H&P 01/20/2019 Jacinda Navarro CNP [facility] Patient: Fernando Helton Date of : 1970 [...] Problems: Chest pain ACS (acute coronary syndrome) ([facility]) Plan: Will admit patient to the telemetry [...] L CAD (coronary artery disease) CAD s/p [facility] with 1 stent in left main 07/2012, [...] Dr. Bev Tolentino Metabolic syndrome Mood disorder ([facility]) Nasal fracture Obstructive sleep apnea noncompliant with [...] Navarro CNP - 01/19/2019 10:57 AM EST [facility] Medicine Inpatient H&P 01/19/2019 Jacinda Navarro CNP [facility] Patient: Fernando Helton Date of : 1970 [...] right leg COPD (chronic obstructive pulmonary disease) ([facility]) Fatigue GERD (gastroesophageal reflux disease) Headache HLD (hyperlipidemia) HTN (hypertension) Metabolic syndrome Mood disorder ([facility]) Obstructive sleep apnea Pneumomediastinum ([facility]) 01/2007 Rotator cuff tear, right 1997 s/p repair SLAP tear of shoulder 2011 left - s/p surgery to place [address] elevation myocardial infarction (STEMI) of anterolateral wall ([facility]) 05/09/12 Past Surgical History: Procedure Laterality Date [...] Navarro CNP - 01/18/2019 10:36 AM EST [facility] Medicine Inpatient H&P 01/18/2019 Jacinda Navarro CNP [facility] Patient: Fernando Helton Date of : 1970 [...] right leg COPD (chronic obstructive pulmonary disease) ([facility]) Fatigue GERD (gastroesophageal reflux disease) Headache HLD (hyperlipidemia) HTN (hypertension) Metabolic syndrome Mood disorder ([facility]) Obstructive sleep apnea Pneumomediastinum ([facility]) 01/2007 Rotator cuff tear, right 1997 s/p repair SLAP tear of shoulder 2011 left - s/p surgery to place [address] elevation myocardial infarction (STEMI) of anterolateral wall ([facility]) 05/09/12 Past Surgical History: Procedure Laterality Date [...] General Cardiology Clinic Follow-up Heart & Vascular [facility] 12/26/2018 Maykel Whitney MD [address] [place] [address] [facility] [id number] Patient: Fernando Helton Date of : 1970 (48 y.o.) PCP: Moises Patel MD Assessment & Plan Heart failure ([facility]) I believe he has acute on chronic [...] Final Result by Magda Durán MD (12/10/2018 0671) Review of Systems: Review of Systems Constitution: [...] than 130 mmHg. TANNER PALMA MSc, [email or web address] Neurologist & Movement Disorder Specialist [facility] (Adj Asst: Professor, [employer] Dept of Neurology) ELLIOT Peterson [id number], [facility] [address] [facility] Fax: [phone] documented in this encounter Summary Purpose Family History No Family History Records FoundNo Family History Records FoundNo Family History Records FoundNo Family History Records FoundNo Family History Records FoundNo Family History Records FoundNo Family History Records FoundNo Family History Records FoundNo Family History Records Found Advance Directives No Advanced Directives Records FoundDocuments on File Type Date Recorded 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 Advance Directives and Livin g Will 09/27/2018 7:30 PM Documents on File Type Date Recorded 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 Advance Directives and Livin g Will 12/18/2018 10:26 AM Documents on File Type Date Recorded 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 Advance Directives and Livin g Will 01/17/2019 12:26 PM Latest Code Status on File Code Status Date Activated Date Inactivated Comments Full Code 01/20/2019 9:05 AM Full Code - Unverified 01/17/2019 4:34 PM 01/20/2019 9:0 5 AM Documents on File Type Date Recorded 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 Advance Directives and Livin g Will 01/31/2019 8:54 AM Latest Code Status on File Code Status Date Activated Date Inactivated Comments Full Code 01/24/2019 10:19 AM Full Code 01/20/2019 9:05 AM 01/24/2019 10:19 AM Full Code - Unverified 01/17/2019 4:34 PM 01/20/2019 9:0 5 AM Documents on File Type Date Recorded 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 Advance Directives and Livin g Will 02/02/2019 9:03 AM Latest Code Status on File Code Status Date Activated Date Inactivated Comments Full Code 02/02/2019 10:37 AM Full Code 01/24/2019 10:19 AM 02/02/2019 10:22 AM Full Code 01/20/2019 9:05 AM 01/24/2019 10:19 AM Documents on File Type Date Recorded 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 Advance Directives and Livin g Will 02/06/2019 12:35 PM Latest Code Status on File Code Status Date Activated Date Inactivated Comments Full Code 02/02/2019 10:37 AM Full Code 01/24/2019 10:19 AM 02/02/2019 10:22 AM Documents on File Type Date Recorded 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 Advance Directives and Livin g Will 02/13/2019 8:39 AM Documents on File Type Date Recorded 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 Advance Directives and Livin g Will 02/21/2019 8:55 AM Documents on File Type Date Recorded 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 Advance Directives and Livin g Will 02/25/2019 8:52 PM Latest Code Status on File Code Status Date Activated Date Inactivated Comments Full Code 02/02/2019 10:37 AM 02/25/2019 8:18 PM Documents on File Type Date Recorded 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 Advance Directives and Livin g Will 02/25/2019 8:52 PM Latest Code Status on File Code Status Date Activated Date Inactivated Comments Full Code 02/02/2019 10:37 AM 02/25/2019 8:18 PM Documents on File Type Date Recorded 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 Advance Directives and Livin g Will 03/13/2019 10:55 AM Documents on File Type Date Recorded 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 Advance Directives and Livin g Will 03/13/2019 10:55 AM Documents on File Type Date Recorded 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 Advance Directives and Livin g Will 09/22/2019 9:34 AM Latest Code Status on File Code Status Date Activated Date Inactivated Comments Full Code 09/22/2019 10:48 AM 09/23/2019 7:50 PM Full Code 02/02/2019 10:37 AM 02/25/2019 8:18 PM Documents on File Type Date Recorded 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 Advance Directives and Livin g Will 10/15/2019 10:09 PM Latest Code Status on File Code Status Date Activated Date Inactivated Comments Full Code 10/16/2019 12:56 AM 10/16/2019 6:18 PM Full Code 09/22/2019 10:48 AM 09/23/2019 7:50 PM Documents on File Type Date Recorded 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 Advance Directives and Livin g Will 12/10/2018 7:30 PM Documents on File Type Date Recorded 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 Advance Directives and Livin g Will 10/15/2019 10:09 PM Latest Code Status on File Code Status Date Activated Date Inactivated Comments Full Code 10/16/2019 12:56 AM 10/16/2019 6:18 PM Full Code 09/22/2019 10:48 AM 09/23/2019 7:50 PM Full Code 02/02/2019 10:37 AM 02/25/2019 8:18 PM Documents on File Type Date Recorded 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 Advance Directives and Livin g Will 01/17/2019 12:26 PM Documents on File Type Date Recorded 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 Advance Directives and Livin g Will 01/04/2019 5:09 PM Documents on File Type Date Recorded 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 Advance Directives and Livin g Will 12/18/2018 10:26 AM Documents on File Type Date Recorded 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 Advance Directives and Livin g Will 09/22/2019 9:34 AM Latest Code Status on File Code Status Date Activated Date Inactivated Comments Full Code 09/22/2019 10:48 AM 09/23/2019 7:50 PM Documents on File Type Date Recorded 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 Advance Directives and Livin g Will 05/28/2020 3:48 PM Documents on File Type Date Recorded 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 Advance Directives and Livin g Will 05/28/2020 3:48 PM Documents on File Type Date Recorded 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 Advance Directives and Livin g Will 06/02/2020 3:48 PM Latest Code Status on File Code Status Date Activated Date Inactivated Comments Full Code - Unverified 06/02/2020 8:25 AM 06/02/2020 5:1 8 PM Full Code 10/16/2019 12:56 AM 10/16/2019 6:18 PM Documents on File Type Date Recorded 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 Advance Directives and Livin g Will 06/10/2020 3:48 PM Documents on File Type Date Recorded 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 Advance Directives and Livin g Will 06/10/2020 3:48 PM Latest Code Status on File Code Status Date Activated Date Inactivated Comments Full Code - Unverified 06/02/2020 8:25 AM 06/02/2020 5:1 8 PM Full Code 10/16/2019 12:56 AM 10/16/2019 6:18 PM Documents on File Type Date Recorded 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 [address] NAME FERNANDO HELTON [facility] [id number] 1970 ADMIT 09/23/2017 DISCH 09/25/2017 DISCHARGE SUMMARY [...] Log into your personal health record on [email or web address] and enter K111 in the Education box to learn more about Using a Metered-Dose Inhaler: Care Instructions. Current as of: October 17, 2017 Content Version: .[id number] [employer]. Care instructions adapted under license by your healthcare professional. If you have questions about a medical condition or this instruction, always ask your healthcare professional. [employer] disclaims any warranty or liability for your [...] Log into your personal health record on [email or web address] and enter U629 in the Education box to learn more about Learning About Chronic Bronchitis. Current as of: October 17, 2017 Content Version: [id number] [employer]. Care instructions adapted under license by your healthcare professional. If you have questions about a medical condition or this instruction, always ask your healthcare professional. [employer] disclaims any warranty or liability for your use of this information. Please take your breathing treatments every 4-6 hours as directed. * Attachments The following attachments cannot be sent through Care Everywhere. * COPD Exacerbation Plan ([place]) documented in this encounter* Discharge Instr - AVS First Page* Kristin Byrnes PA-C - 01/23/2019 9:08 AM EST ALL ORDERS PER Dr. Neo Mcneil AND HIS TEAM ONLY. CALL CARDIAC SURGERY FOR ANY QUESTIONS/CONCERNSAT [phone], (OPTION #3 after 5 PM and on [...] Fernandez's office 4. Dr. Fernandez's phone number: [phone] Fernandez's fax number: [phone] HISTORY OF CONGESTIVE HEART FAILURE: 1. Check: [...] Fernandez's office 4. Dr. Fernandez's phone number: [phone] Fernandez's fax number: [phone] HISTORY OF CONGESTIVE HEART FAILURE: 1. Check: [...] be sent through Care Everywhere. * Pleurisy ([place]) documented in this encounter* Instructions* Brian Cordoba MD - 01/04/2019 prednisone for 5 days; and DuoNeb; stay away from passive smoking; follow-up with the PCP * Attachments The following attachments cannot be sent through Care Everywhere. * COPD: General Info ([place]) documented in this encounter* Discharge Instr - IP OT* Magda Brito OTR/Priyanka - 09/23/2019 3:39 PM EDT No further occupational therapy is needed. documented in this encounter Reason for Referral Status Reason Specialty Diagnoses / Procedures Referred By Contact Referred To Contact Pending Review Cardiology Diagnoses S/P CABG (coronary artery bypass graft) Procedures Stress test only, exercise Carlo Mercedes MD [address] [place] [address] Status Reason Specialty Diagnoses / Procedures Referred By Contact Referred To Contact Authorized Cardiology Diagnoses Coronary artery disease involving [place] coronary artery of [place] heart without angina pectoris Procedures Echocardiogram complete Anita Rowland MD [address] [place] [address] Status Reason Specialty Diagnoses / Procedures Referred By Contact Referred To Contact Authorized Cardiology Diagnoses TIA (transient ischemic attack) Procedures Cardiac event monitor Anita Rowland MD [address] [place] [address] Status Reason Specialty Diagnoses / Procedures Referre d By Contact Referred To Contact Closed Cardiology Diagnoses TIA (transient ischemic attack) Procedures Cardiac event monitor Anita Rowland MD [address] [place] [address] Status Reason Specialty Diagnoses / Procedures Referred By Contact Referred To Contact Authorized Radiology Diagnoses Chronic systolic congestive heart failure (HCC) Procedures MR Cardiac Morphology With And Without Contrast with Velocity Flow Patricia Louis, CHRISTIAN [address] [place] [address] Status Reason Specialty Diagnoses / Procedures Referre d By Contact Referred To Contact Closed Radiology Diagnoses NSVT (nonsustained ventricular tachycardia) ([facility]) Abnormal EKG Procedures NM Myocardial Perfusion Multiple SPECT Anita Rowland MD [address] [place] [address] Status Reason Specialty Diagnoses / Procedures Re ferred By Contact Referred To Contact Closed Cardiology Diagnoses Other specified complications of surgical and medical care, not elsewhere classified, initial encounter Procedures Ultrasound duplex arterial arm left Anita Rowland MD [address] [place] [address] Status Reason Specialty Diagnoses / Procedures Referred By Contact Referred To Contact Pending Review Cardiology Diagnoses Other specified complications of surgical and medical care, not elsewhere classified, initial encounter Procedures Ultrasound duplex arterial arm left Anita Rowland MD [address] [place] [address] Chief Complaint and Reason for Visit Chief [...] with Velocity Flow Patricia Louis CNS [address] [place] [address] Status Reason Specialty Diagnoses / Procedures Referre [...] artery bypass graft) Kristin Walker PA-C [address] [place] [address] Cardio Pulm [address] [place] [address] Status Reason Specialty Diagnoses / Procedures Referred By Contact Referred To Contact Pending Review Cardiology Diagnoses S/P CABG (coronary artery bypass graft) Procedures Stress test only, exercise Carlo Mercedes MD [address] [place] [address] Reason Comments Heart Problem Status Reason Specialty Diagnoses / Procedures Referred By Contact Referred To Contact Authorized Specialty Services Required/Patie nt's Best Interest Cardiac Rehabilitation Diagnoses S/P CABG (coronary artery bypass graft) Kristin Walker PA-C [address] [place] [address] Cardio Pulm [address] [place] [address] Reason Comments Follow-up Follow up/Swelling Reason Comments Follow-up Overdue 6 monhth Status Reason Specialty Diagnoses / Procedures Referre d By Contact Referred To Contact Diagnoses Near syncope Status Reason Specialty Diagnoses / Procedures Referred By Contact Referred To Contact Pending Review Cardiology Diagnoses Chronic systolic heart failure (HCC) Hypertension, unspecified type Coronary artery disease involving [place] coronary artery of [place] heart without angina pectoris Procedures Echocardiogram complete w contrast Echocardiogram complete Patricia Louis CNS [address] [place] [address] Reason Onset Date Comments Medication Refill 04/12/2020 Reason Onset Date Comments Medication Refill 04/13/2020 Status Reason Specialty Diagnoses / Procedures Referred By Contact Referred To Contact Authorized Radiology Diagnoses Chronic systolic congestive heart failure (HCC) Procedures MR Cardiac Morphology With And Without Contrast with Velocity Flow Patricia Louis, HORTICULTURE WORKER [address] [place] [address] Status Reason Specialty Diagnoses / Procedures Referre [...] To Contact Diagnoses Acute CVA (cerebrovascular accident) ([facility]) TIA (transient ischemic attack) Status Reason Specialty Diagnoses / Procedures Referre d By Contact Referred To Contact Closed Radiology Diagnoses NSVT (nonsustained ventricular tachycardia) ([facility]) Abnormal EKG Procedures NM Myocardial Perfusion Multiple SPECT Anita Rowland MD [address] [place] [address] Status Reason Specialty Diagnoses / Procedures Referre [...] arterial arm left Anita Rowland MD [address] [place] [address] Reason Onset Date Comments Medication Refill 06/10/2020 Status Reason Specialty Diagnoses / Procedures Referred By Contact Referred To Contact Pending Review Cardiology Diagnoses Other specified complications of surgical and medical care, not elsewhere classified, initial encounter Procedures Ultrasound duplex arterial arm left Anita Rowland MD [address] [place] [address] Reason Comments Medication Refill Reason Onset Date [...] section and content) DATE CREATED AUTHOR 03/14/2018 [facility] DATE CREATED AUTHOR AUTHOR'S ORGANIZ ATION 04/27/2020 [facility] DATE CREATED AUTHOR AUTHOR'S ORGANIZ ATION 05/23/2020 [facility] DATE CREATED AUTHOR AUTHOR'S ORGANIZ ATION 04/28/2021 [facility] DATE CREATED AUTHOR AUTHOR'S ORGANIZ ATION 11/12/2021 [facility] DATE CREATED AUTHOR AUTHOR'S ORGANIZ ATION 11/14/2021 [facility] DATE CREATED AUTHOR AUTHOR'S ORGANIZ ATION 01/02/2022 [facility] DATE CREATED AUTHOR AUTHOR'S ORGANIZ ATION 06/23/2022 [facility] DATE CREATED AUTHOR AUTHOR'S ORGANIZ ATION 12/20/2022 [facility] Annie Kapadia RN - 09/27/2018 8:19 PM Annie Fu RN - 09/27/2018 8:17 PM Nathanael Pavon MD - 09/27/2018 8:13 PM Annie Fu RN - 09/27/2018 7:48 PM EDT ED Notes (unrecognized secti on and content) Adjusted PT in bed Physician at bedside. Updated PT on medical plan. Associated Order(s): ECG 12 Lead ED PROVIDER NOTE [facility] EM[facility] NAME: Fernando Helton AGE: 48 y.o. : 1970 VISIT DATE: 09/27/2018 CSN: [id number] PCP: Moises Patel MD Chief Complaint Patient [...] 1998 CAD (coronary artery disease) CAD s/p [facility] with 1 stent in left main 07/2012, [...] file Gets together: Not on file Attends mormon service: Not on file Active member of [...] ms QTC Calculation (Bezet) 425 ms P [place] 62 degrees R [place]es[place] 0 degrees T [place] 72 degrees POC Basic Metabolic Panel Result [...] Family Medicine Why: If symptoms worsen [address] [facility] [address] Contact information for after-discharge care Follow-up information [...] SIMILAR TO WHEN HE HAD HIS PRIOR CA. PT LOCATES IT IN THE MIDDLE OF HIS CHEST AND RADIATES TO HIS BACK AND JAW. PT STATES HE IS SOB, SUFFERS COPD BUT NOT O2 DEPENDANT. PT IS ABLE TO SPEAK IN COMPLETE SENTENCES WITHOUT DIFFICULTY. PT DOES HAVE SOME AUDIBLE WHEEZING. PT IS WARM AND DRY ED PROVIDER NOTE [facility] EM[facility]GENCY DEPART[facility] NAME: Fernando Helton AGE: 48 y.o. : 1970 VISIT DATE: 01/17/2019 CSN: [id number] PCP: Moises Patel MD Chief Complaint Patient [...] right leg COPD (chronic obstructive pulmonary disease) ([facility]) Fatigue GERD (gastroesophageal reflux disease) Headache HLD (hyperlipidemia) HTN (hypertension) Metabolic syndrome Mood disorder ([facility]) Obstructive sleep apnea Pneumomediastinum ([facility]) 01/2007 Rotator cuff tear, right 1997 s/p repair SLAP tear of shoulder 2011 left - s/p surgery to place [address] elevation myocardial infarction (STEMI) of anterolateral wall ([facility]) 05/09/12 Past Surgical History: Procedure Laterality Date [...] file Gets together: Not on file Attends mormon service: Not on file Active member of [...] ms QTC Calculation (Bezet) 425 ms P [place] 67 degrees R [place]es[place] 2 degrees T [place] 65 degrees CBC Auto Differential Result Value [...] rhythm rate of 73 beats per minutes MA interval 164 ms QRS duration 86 ms [...] MESSAGE FOR HER TO CALL BACK. 22:53 [facility] ED Physician Note: NAME: Fernando Helton 48 y.o. CSN: [id number] PCP: Moises Patel MD History: Chief Complaint: Shortness of Breath HPI: The history was obtained from the patient. He is a 48 y.o. male who presents with a chief complaint of Shortness of Breath. Patient reports that he underwent coronary artery bypass grafting over 4 weeks ago here at [facility]. Patient reports that around 1 PM he developed sudden onset of dyspnea. Patient reports this to be accompanied by left lung discomfort. Patient describes discomfort as sharp. Shortness of breath is present at rest and worsens with movement. PMHx: Past Medical History: Diagnosis Date Acute respiratory failure ([facility]) 09/2014 requring mechanical ventilation Anxiety Bilateral lower extremity edema R > L CAD (coronary artery disease) CAD s/p [facility] with 1 stent in left main 07/2012, replaced 09/2014 Cardiac arrest with ventricular fibrillation ([facility]) 09/25/2014 CHF (congestive heart failure), NYHA class I, chronic, diastolic ([facility]) Chronic sinusitis Claudication of right lower extremity ([facility]) Cluster headache COPD (chronic obstructive pulmonary disease) (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) 05/09/2012 anterolateral STEMI involving left anterior descending coronary artery ([facility]) 09/25/2014 anterior Superficial thrombophlebitis of right upper [...] Heart Cath; Surgeon: Carlo Mercedes MD; Location: [facility]; Service: Cardiovascular IABP placement 05/09/[address] [...] file Gets together: Not on file Attends mormon service: Not on file Active member of [...] Procedure Abnormality Status --------- ------ CBC Auto Differential[[id number]] Abnormal Final result Please view results for [...] No diagnosis found. Disposition: Fausto Alejandro M.D. [facility] Emergency Department Fausto Alejandro MD 02/25/19 2249 PT STATES SHORTNESS OF BREATH STARTED AT 1PM TODAY, WITH LEFT SIDE BACK PAIN, PT STATES HAD BYPASS SURGERY FIVE WEEKS AGO AND AT THAT TIME HAD FLUID AROUND LEFT LUNG AND THIS FEELS LIKE THAT Bed: 09 Expected date: Expected time: Means of arrival: Comments: 2nd patient documented in this encounter ED PROVIDER NOTE [facility] NAME: Fernando Helton AGE: 49 y.o. : 1970 VISIT DATE: 10/15/2019 CSN: [id number] PCP: Moises Patel MD Chief Complaint Patient [...] Dr. Bev Tolentino Metabolic syndrome Mood disorder ([facility]) Nasal fracture Obstructive sleep apnea noncompliant with CPAP Orthostatic dizziness with intermittent syncope Pericarditis 02/25/07; 09/23/17 Pneumomediastinum ([facility]) 01/12/2007 secondary to severe coughing spell & ruptured alveoli Rotator cuff tear, right 1998 s/p repair SLAP tear of shoulder 2011 left - s/p surgery to place [address] elevation myocardial infarction (STEMI) of anterolateral wall ([facility]) 05/09/2012 anterolateral STEMI involving left anterior descending coronary artery ([facility]) 09/25/2014 anterior Superficial thrombophlebitis of right upper [...] Heart Cath; Surgeon: Carlo Mercedes MD; Location: [facility]; Service: Cardiovascular IABP placement 05/09/[address] [...] file Gets together: Not on file Attends mormon service: Not on file Active member of [...] Motor: No weakness or pronator drift. Coordination: Pijyei-Ppuq-Jdpsgh Test normal. Psychiatric: Attention and Perception: Attention [...] ms QTC Calculation (Bezet) 461 ms P [place] 61 degrees R Quinnesec -4 degrees T Quinnesec 80 degrees POC Glucose Result Value Ref [...] Order(s): ECG 12- Lead ED PROVIDER NOTE [facility] NAME: Fernando Helton AGE: 48 y.o. : 1970 VISIT DATE: 01/04/2019 CSN: [id number] PCP: Moises Patel MD Chief Complaint Patient presents with Shortness of Breath x2 months CC: Waxing and waning shortness of breath x2 months HPI: Patient with a past medical history of COPD; presented to the ER with waxing and waning shortness of breath going on for 2 months; no significant expectoration; shortness of breath gets worse after ambulation; patient also history of CA in the past requiring stent placement 2012 and 2014; patient follows up with the research neuropsychologist; recently had echocardiogram; that as per him shows ejection fraction around 46%; recently had a cardiac MRI; research neuropsychologist thinks that he does not have CHF; patient does have a leg edema; and has been prescribed hydrochlorothiazide; which she has been taking; but still getting short of breath; experiences of wheezing; use albuterol and nebulization; not feeling better; no fever no chills Past Medical History: Diagnosis Date Ankle swelling Anxiety Appendicitis 1998 s/p appendectomy 1998 CAD (coronary artery disease) CAD s/p [facility] with 1 stent in left main 07/2012, replaced 09/2014 Chest pain Circulation problem right leg COPD (chronic obstructive pulmonary disease) ([facility]) Fatigue GERD (gastroesophageal reflux disease) Headache HLD (hyperlipidemia) HTN (hypertension) Metabolic syndrome Mood disorder ([facility]) Obstructive sleep apnea Pneumomediastinum ([facility]) 01/2007 Rotator cuff tear, right 1997 s/p repair SLAP tear of shoulder 2011 left - s/p surgery to place [address] elevation myocardial infarction (STEMI) of anterolateral wall ([facility]) 05/09/12 Past Surgical History: Procedure Laterality Date [...] file Gets together: Not on file Attends mormon service: Not on file Active member of [...] with signage outside this patient's room. This school childcare attendant performs hand hygiene and enters the patient [...] Wu on virtual screen ED PROVIDER NOTE [facility] NAME: Fernando Helton AGE: 49 y.o. : 1970 VISIT DATE: 09/22/2019 CSN: [id number] PCP: Moises Patel MD Chief Complaint Patient [...] L CAD (coronary artery disease) CAD s/p [facility] with 1 stent in left main 07/2012, replaced 09/2014 Cardiac arrest with ventricular fibrillation ([facility]) 09/25/2014 CHF (congestive heart failure), NYHA class I, chronic, diastolic ([facility]) Chronic sinusitis Claudication of right lower extremity ([facility]) Cluster headache COPD (chronic obstructive pulmonary disease) (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 Bev Tolentino Metabolic syndrome Mood disorder ([facility]) Nasal fracture Obstructive sleep apnea noncompliant with CPAP Orthostatic dizziness with intermittent syncope Pericarditis 02/25/07; 09/23/17 Pneumomediastinum ([facility]) 01/12/2007 secondary to severe coughing spell & ruptured alveoli Rotator cuff tear, right 1998 s/p repair SLAP tear of shoulder 2011 left - s/p surgery to place [address] elevation myocardial infarction (STEMI) of anterolateral wall ([facility]) 05/09/2012 anterolateral STEMI involving left anterior descending coronary artery ([facility]) 09/25/2014 anterior Superficial thrombophlebitis of right upper extremity 12/26/2006 Past Surgical History: Procedure Laterality Date APPENDECTOMY 1998 BONE MARROW BIOPSY W/ ASPIRATION Left 11/27/2016 L posterior iliac crest; Dr. Bev Tolentino CABG OFF PUMP N/A 01/24/2019 Procedure: Coronary Artery Bypass graft x1 with Left Internal Mammary Artery graft, OFF PUMP; Surgeon: Neo Mcneil MD; Location: [facility]; Service: Cardiothoracic CARDIAC CATHETERIZATION 09/24/2014 [...] Heart Cath; Surgeon: Carlo Mercedes MD; Location: [facility]; Service: Cardiovascular IABP placement 05/09/[address] [...] file Gets together: Not on file Attends mormon service: Not on file Active member of [...] normal sinus rhythm rate of 67 bpm MA interval 172 ms QRS duration 86 ms [...] Fernando Helton Admit Date: [id number] MR #: [id number] : 1970 Physicians: Moises Patel MD (Family); [...] Medical History: Diagnosis Date Acute respiratory failure ([facility]) 09/2014 requring mechanical ventilation Anxiety Bilateral lower extremity edema R > L CAD (coronary artery disease) CAD s/p [facility] with 1 stent in left main 07/2012, replaced 09/2014 Cardiac arrest with ventricular fibrillation ([facility]) 09/25/2014 CHF (congestive heart failure), NYHA class I, chronic, diastolic ([facility]) Chronic sinusitis Claudication of right lower extremity ([facility]) Cluster headache COPD (chronic obstructive pulmonary disease) (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 Bev Tolentino Metabolic syndrome Mood disorder ([facility]) Nasal fracture Obstructive sleep apnea noncompliant with CPAP Orthostatic dizziness with intermittent syncope Pericarditis 02/25/07; 09/23/17 Pneumomediastinum ([facility]) 01/12/2007 secondary to severe coughing spell & ruptured alveoli Rotator cuff tear, right 1997 s/p repair SLAP tear of shoulder 2011 left - s/p surgery to place [address] elevation myocardial infarction (STEMI) of anterolateral wall ([facility]) 05/09/2012 anterolateral STEMI involving left anterior descending coronary artery ([facility]) 09/25/2014 anterior Superficial thrombophlebitis of right upper extremity 12/26/2006 Past Surgical History: Procedure Laterality Date APPENDECTOMY 1998 BONE MARROW BIOPSY W/ ASPIRATION Left 11/27/2016 L posterior iliac crest; Dr. Bev Tolentino CABG OFF PUMP N/A 01/24/2019 Procedure: Coronary Artery Bypass graft x1 with Left Internal Mammary Artery graft, OFF PUMP; Surgeon: Neo Mcneil MD; Location: [facility]; Service: Cardiothoracic CARDIAC CATHETERIZATION 09/24/2014 [...] N/A 01/20/2019 Procedure: Left Heart Cath; Surgeon: Calro Mercedes MD; Location: [facility]; Service: Cardiovascular IABP placement 05/09/[address] [...] file Gets together: Not on file Attends mormon service: Not on file Active member of [...] patient's participation in this plan of care: CA, CABG. 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 Past Medical History: Diagnosis Date Acute respiratory failure (HCC) 09/2014 requring mechanical ventilation Anxiety Bilateral lower extremity edema R > L CAD (coronary artery disease) CAD s/p [facility] with 1 stent in left main 07/2012, replaced 09/2014 Cardiac arrest with ventricular fibrillation (HCC) 09/25/2014 CHF (congestive heart failure), NYHA class I, chronic, diastolic (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 Bev Tolentino Metabolic syndrome Mood disorder ([facility]) Nasal fracture Obstructive sleep apnea noncompliant with CPAP Orthostatic dizziness with intermittent syncope Pericarditis 02/25/07; 09/23/17 Pneumomediastinum ([facility]) 01/12/2007 secondary to severe coughing spell & ruptured alveoli Rotator cuff tear, right 1998 s/p repair SLAP tear of shoulder 2011 left - s/p surgery to place [address] elevation myocardial infarction (STEMI) of anterolateral wall ([facility]) 05/09/2012 anterolateral STEMI involving left anterior descending coronary artery ([facility]) 09/25/2014 anterior Superficial thrombophlebitis of right upper [...] Heart Cath; Surgeon: Carlo Mercedes MD; Location: [facility]; Service: Cardiovascular IABP placement 05/09/[address] [...] of Care. Associated Order(s): IP CONSULT TO AUTO REFINISHER Met with patient for Diabetes self management [...] a barrier and family/caregiver support is a janitorial account manager for return to prior level of function. The patient's education level is a janitorial account manager and awareness of own capacity and performance is a janitorial account manager to return to prior level of function. 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 Past Medical History: Diagnosis Date Acute respiratory failure (HCC) 09/2014 requring mechanical ventilation Anxiety Bilateral lower extremity edema R > L CAD (coronary artery disease) CAD s/p [facility] with 1 stent in left main 07/2012, replaced 09/2014 Cardiac arrest with ventricular fibrillation ([facility]) 09/25/2014 CHF (congestive heart failure), NYHA class I, chronic, diastolic ([facility]) Chronic sinusitis Claudication of right lower extremity ([facility]) Cluster headache COPD (chronic obstructive pulmonary disease) (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 Bev Tolentino Metabolic syndrome Mood disorder ([facility]) Nasal fracture Obstructive sleep apnea noncompliant with CPAP Orthostatic dizziness with intermittent syncope Pericarditis 02/25/07; 09/23/17 Pneumomediastinum ([facility]) 01/12/2007 secondary to severe coughing spell & ruptured alveoli Rotator cuff tear, right 1997 s/p repair SLAP tear of shoulder 2011 left - s/p surgery to place [address] elevation myocardial infarction (STEMI) of anterolateral wall ([facility]) 05/09/2012 anterolateral STEMI involving left anterior descending coronary artery ([facility]) 09/25/2014 anterior Superficial thrombophlebitis of right upper [...] Heart Cath; Surgeon: Carlo Mercedes MD; Location: [facility]; Service: Cardiovascular IABP placement 05/09/[address] [...] Fernando Helton Admit Date: [id number] MR #: [id number] : 1970 Physicians: Moises Patel MD (Family); No ref. provider found (referring) Assessment and Plan: PAD (peripheral artery disease) ([facility]) Assessment & Plan Vascular was consulted regarding [...] elevation myocardial infarction (STEMI) of anterolateral wall ([facility]) 05/09/2012 anterolateral STEMI involving left anterior descending coronary artery ([facility]) 09/25/2014 anterior Superficial thrombophlebitis of right upper [...] end-diastolic pressure. CARDIAC CATHETERIZATION 01/14/[address] Phililps CARDIAC CATHETERIZATION 11/24/[address] Rowland COLONOSCOPY [...] file Gets together: Not on file Attends mormon service: Not on file Active member of [...] Fernando Helton Admit Date: 01/17/2019 MR #: [id number] : 1970 Current location: [facility] Physicians: Moises Patel MD (Family); Kristin [...] replaced 09/2014 Cardiac arrest with ventricular fibrillation ([facility]) 09/25/2014 CHF (congestive heart failure), NYHA class I, chronic, diastolic ([facility]) Chronic sinusitis Claudication of right lower extremity ([facility]) Cluster headache COPD (chronic obstructive pulmonary disease) (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 Bev Tolentino Metabolic syndrome Mood disorder ([facility]) Nasal fracture Obstructive sleep apnea noncompliant with CPAP Orthostatic dizziness with intermittent syncope Pericarditis 02/25/07; 09/23/17 Pneumomediastinum ([facility]) 01/12/2007 secondary to severe coughing spell & ruptured alveoli Rotator cuff tear, right 1997 s/p repair SLAP tear of shoulder 2011 left - s/p surgery to place [address] elevation myocardial infarction (STEMI) of anterolateral wall ([facility]) 05/09/2012 anterolateral STEMI involving left anterior descending coronary artery ([facility]) 09/25/2014 anterior Superficial thrombophlebitis of right upper [...] CONSULT TO CARDIOTHORACIC SURGERY CONSULTATION REPORT 01/21/19 Fernadno Priyanka Helton PRIMARY CARE PHYSICIAN: Moises Patel [...] Eliquis for in-stent thrombosis, who presented to [facility] emergency department on 01/17/2019 with worsening [...] Melanoma Brother SOCIAL HISTORY: Patient resides in [place] in a two-story home with approximately 15 [...] file Gets together: Not on file Attends mormon service: Not on file Active member of [...] and diaphoresis. On 01/17/2019, patient presented to [facility] and was admitted for further evaluation by [...] CONSULT TO CARDIOLOGY Reason for consult-chest pain LUMMI-patient is a pleasant 48-year-old man with medical history significant for CAD status post PCI to LAD in 2012 for CA presentation-presented again in 2014 with in-stent restenosis-underwent [...] have been negative, EKG shows old anterolateral CA with mild ST-T changes, d-dimer is negative [...] 1998 CAD (coronary artery disease) CAD s/p [facility] with 1 stent in left main 07/2012, replaced 09/2014 Chest pain Circulation problem right leg COPD (chronic obstructive pulmonary disease) ([facility]) Fatigue GERD (gastroesophageal reflux disease) Headache HLD (hyperlipidemia) HTN (hypertension) Metabolic syndrome Mood disorder ([facility]) Obstructive sleep apnea Pneumomediastinum ([facility]) 01/2007 Rotator cuff tear, right 1997 s/p repair SLAP tear of shoulder 2011 left - s/p surgery to place [address] elevation myocardial infarction (STEMI) of anterolateral wall (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 Coronary artery disease involving [place] coronary artery of [place] heart without angina pectoris Patient has a [...] CPAP therapy. COPD (chronic obstructive pulmonary disease) ([facility]) Assessment & Plan Patient reports he has discontinued tobacco abuse. Coronary artery disease involving [place] coronary artery of [place] heart without angina pectoris Assessment & Plan [...] Final Result by Interface, Lab Results In [place] Pyramis (10/16/2019 0822) Echocardiogram complete w contrast [...] Medical History: Diagnosis Date Acute respiratory failure ([facility]) 09/2014 requring mechanical ventilation Anxiety Bilateral lower extremity edema R > L CAD (coronary artery disease) CAD s/p [facility] with 1 stent in left main 07/2012, replaced 09/2014 Cardiac arrest with ventricular fibrillation ([facility]) 09/25/2014 CHF (congestive heart failure), NYHA class I, chronic, diastolic ([facility]) Chronic sinusitis Claudication of right lower extremity ([facility]) Cluster headache COPD (chronic obstructive pulmonary disease) (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 Bev Tolentino Metabolic syndrome Mood disorder ([facility]) Nasal fracture Obstructive sleep apnea noncompliant with CPAP Orthostatic dizziness with intermittent syncope Pericarditis 02/25/07; 09/23/17 Pneumomediastinum ([facility]) 01/12/2007 secondary to severe coughing spell & ruptured alveoli Rotator cuff tear, right 1997 s/p repair SLAP tear of shoulder 2011 left - s/p surgery to place [address] elevation myocardial infarction (STEMI) of anterolateral wall ([facility]) 05/09/2012 anterolateral STEMI involving left anterior descending coronary artery ([facility]) 09/25/2014 anterior Superficial thrombophlebitis of right upper [...] occlusion of left anterior descending by Dr. Rwoland CARDIAC CATHETERIZATION Left 09/28/2015 Dr. Rowland Predominant [...] Heart Cath; Surgeon: Carlo Mercedes MD; Location: [facility]; Service: Cardiovascular IABP placement 05/09/[address] [...] . The patient's home setup is a janitorial account manager, family / caregiver support is a janitorial account manager for return to prior level of function. The patient's compliance is a janitorial account manager, awareness of own capacity and performance is a janitorial account manager to return to prior level of function. [...] double vision, but none during OT eval. [id number] WNL. ADL/IADL Feeding: Independent Grooming : Independent [...] dizziness.. Prior Level of Function Level of [place]: Independent with ADLs and functional transfers, Independent with homemaking with ambulation Lives With: Spouse Receives Help From: Family ADL Assistance: Independent Homemaking Assistance: Independent Vocational: On disability Comments: Drives. Independent in community. Past Medical History: Diagnosis Date Acute respiratory failure ([facility]) 09/2014 requring mechanical ventilation Anxiety Bilateral lower extremity edema R > L CAD (coronary artery disease) CAD s/p [facility] with 1 stent in left main 07/2012, replaced 09/2014 Cardiac arrest with ventricular fibrillation ([facility]) 09/25/2014 CHF (congestive heart failure), NYHA class I, chronic, diastolic ([facility]) Chronic sinusitis Claudication of right lower extremity ([facility]) Cluster headache COPD (chronic obstructive pulmonary disease) (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 Bev Tolentino Metabolic syndrome Mood disorder ([facility]) Nasal fracture Obstructive sleep apnea noncompliant with CPAP Orthostatic dizziness with intermittent syncope Pericarditis 02/25/07; 09/23/17 Pneumomediastinum ([facility]) 01/12/2007 secondary to severe coughing spell & ruptured alveoli Rotator cuff tear, right 1997 s/p repair SLAP tear of shoulder 2011 left - s/p surgery to place [address] elevation myocardial infarction (STEMI) of anterolateral wall ([facility]) 05/09/2012 anterolateral STEMI involving left anterior descending coronary artery ([facility]) 09/25/2014 anterior Superficial thrombophlebitis of right upper [...] Heart Cath; Surgeon: Carlo Mercedes MD; Location: [facility]; Service: Cardiovascular IABP placement 05/09/[address] [...] level Prior Level of Function Level of [place]: Independent with ADLs and functional transfers, Independent with homemaking with ambulation Lives With: Spouse Patient is at or near prior level of function at this time. Past Medical History: Diagnosis Date Acute respiratory failure ([facility]) 09/2014 requring mechanical ventilation Anxiety Bilateral lower extremity edema R > L CAD (coronary artery disease) CAD s/p [facility] with 1 stent in left main 07/2012, replaced 09/2014 Cardiac arrest with ventricular fibrillation ([facility]) 09/25/2014 CHF (congestive heart failure), NYHA class I, chronic, diastolic ([facility]) Chronic sinusitis Claudication of right lower extremity ([facility]) Cluster headache COPD (chronic obstructive pulmonary disease) (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 Bev Tolentino Metabolic syndrome Mood disorder ([facility]) Nasal fracture Obstructive sleep apnea noncompliant with CPAP Orthostatic dizziness with intermittent syncope Pericarditis 02/25/07; 09/23/17 Pneumomediastinum ([facility]) 01/12/2007 secondary to severe coughing spell & ruptured alveoli Rotator cuff tear, right 1997 s/p repair SLAP tear of shoulder 2011 left - s/p surgery to place [address] elevation myocardial infarction (STEMI) of anterolateral wall ([facility]) 05/09/2012 anterolateral STEMI involving left anterior descending coronary artery ([facility]) 09/25/2014 anterior Superficial thrombophlebitis of right upper extremity 12/26/2006 Past Surgical History: Procedure Laterality Date APPENDECTOMY 1998 BONE MARROW BIOPSY W/ ASPIRATION Left 11/27/2016 L posterior iliac crest; Dr. Bev Tolentino CABG OFF PUMP N/A 01/24/2019 Procedure: Coronary Artery Bypass graft x1 with Left Internal Mammary Artery graft, OFF PUMP; Surgeon: Neo Mcneil MD; Location: [facility]; Service: Cardiothoracic CARDIAC CATHETERIZATION 09/24/2014 [...] 02/03/2019 Procedure: IR THORACENTESIS LEFT; Surgeon: Gilmer Zealya MD; Location: IR LAB; Service: Interventional Radiology ETHMOIDECTOMY Bilateral 06/25/[address] Gaitan [facility] LEFT HEART CATH N/A 01/20/2019 Procedure: Left Heart Cath; Surgeon: Carlo Mercedes MD; Location: [facility]; Service: Cardiovascular IABP placement 05/09/[address] [...] with the care plan documented by the PATIENT FINANCIAL SERVICES MANAGER. Time statement: A total of 70 minutes were spent on this encounter either in the patient's room or on the patient's hospital unit and over half of that time was spent on [id number] counseling and/or coordination of care. TANNER PALMA MSc, . [email or web address] Staff Neurologist & Movement Disorder Specialist [facility] (Adj Asst: Professor, [facility] [employer] Dept of Neurology) [id number], [address] Fax: [phone] NEUROLOGY NOTE [facility] [address] [place] second floor [place] [address] Fax: [phone] Service date: 09/23/2019 Admit date: 09/22/2019 Fernando [...] review with Dr. Palma. Ginny Rushing, MSN, PATIENT FINANCIAL SERVICES MANAGER [facility] Neurology Associated Order(s): IP [...] Discharge Readiness Barriers to Discharge: No barriers [facility] Disposition D/C Disposition: Home Speech Pathology [...] Level of Function: Prior Function Primary Language: [place] Verdean Employment Status: Disabled Education Level: (11th grade) Prior Cognitive Deficit: (memory deficits following 3 heart attacks and CABG) Past Medical History: Diagnosis Date Acute respiratory failure ([facility]) 09/2014 requring mechanical ventilation Anxiety Bilateral lower extremity edema R > L CAD (coronary artery disease) CAD s/p [facility] with 1 stent in left main 07/2012, replaced 09/2014 Cardiac arrest with ventricular fibrillation ([facility]) 09/25/2014 CHF (congestive heart failure), NYHA class I, chronic, diastolic ([facility]) Chronic sinusitis Claudication of right lower extremity ([facility]) Cluster headache COPD (chronic obstructive pulmonary disease) (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 Bev Tolentino Metabolic syndrome Mood disorder ([facility]) Nasal fracture Obstructive sleep apnea noncompliant with CPAP Orthostatic dizziness with intermittent syncope Pericarditis 02/25/07; 09/23/17 Pneumomediastinum ([facility]) 01/12/2007 secondary to severe coughing spell & ruptured alveoli Rotator cuff tear, right 1998 s/p repair SLAP tear of shoulder 2011 left - s/p surgery to place [address] elevation myocardial infarction (STEMI) of anterolateral wall ([facility]) 05/09/2012 anterolateral STEMI involving left anterior descending coronary artery ([facility]) 09/25/2014 anterior Superficial thrombophlebitis of right upper [...] end-diastolic pressure. CARDIAC CATHETERIZATION 01/14/[address] Phlilips CARDIAC CATHETERIZATION 11/24/[address] Rowland COLONOSCOPY [...] Heart Cath; Surgeon: Carlo Mercedes MD; Location: [facility]; Service: Cardiovascular IABP placement 05/09/[address] [...] Associated Problem(s): COPD (chronic obstructive pulmonary disease) ([facility]) Patient reports he has discontinued tobacco abuse. Associated Problem(s): Coronary artery disease involving [place] coronary artery of [place] heart without angina pectoris Patient has a [...] Completed Call placed to Dr. Martines about [place] line possibly not giving correct information based [...] OF SURGEON: Dr. Neo Bose. MD Tarun Inspector Glass Or Mirror: Kristin Walker PA-C ANESTHESIOLOGIST: Dr. Jef Martines TYPE OF ANESTHESIA: General PRE-OP DIAGNOSIS: Sclerotic heart disease of the [place] coronary arteries In-stent restenosis of the LAD. [...] y.o. year-old male who presented with acute CA in the anterior wall after in-stent restenosis [...] LAD via proximal and distal control. The ResQU stabilization device was utilized to immobilize the [...] complexity, Kristin CHOUDHURY, was utilized as my seed laboratory assistant.' I broke scrub and went [...] were discussed and spouse was identified as salesperson household appliances. Use of Password was discussed CV[facility] visiting policies were discussed. Multidisciplinary seam steamer rounds were reviewed and family members/caregivers [...] have been negative, EKG showed old anterolateral CA with mild ST-T changes with d-dimer negative [...] mmHg -Patient scheduled for CABG with Dr. Saavedar 01/24/2019 -We would recommend vein harvest from [...] L CAD (coronary artery disease) CAD s/p [facility] with 1 stent in left main 07/2012, replaced 09/2014 Cardiac arrest with ventricular fibrillation ([facility]) 09/25/2014 CHF (congestive heart failure), NYHA class I, chronic, diastolic ([facility]) Chronic sinusitis Claudication ([facility]) Claudication of right lower extremity ([facility]) Cluster headache COPD (chronic obstructive pulmonary disease) (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 Bev Tolentino Metabolic syndrome Mood disorder ([facility]) Nasal fracture Obstructive sleep apnea noncompliant with CPAP Orthostatic dizziness with intermittent syncope Pericarditis 02/25/07; 09/23/17 Pneumomediastinum ([facility]) 01/12/2007 secondary to severe coughing spell & ruptured alveoli Rotator cuff tear, right 1998 s/p repair SLAP tear of shoulder 2011 left - s/p surgery to place [address] elevation myocardial infarction (STEMI) of anterolateral wall ([facility]) 05/09/2012 anterolateral STEMI involving left anterior descending coronary artery ([facility]) 09/25/2014 anterior Superficial thrombophlebitis of right upper [...] Estimated Needs: 1800-2200cal Method for Estimating Needs: [id number],adjbw Total Protein Estimated Needs: 86gms Method for [...] CT surgery for SPARKS to LAD bypass pharmaceutical laboratory technician nurse here for patient, advised to give Effient and ASA along with other cardiac meds this morning, advised to stop heparin at this time, off unit with lab technologist nurse Problem: Actual or potential alteration in [...] and nitro paste. Consulted with Denisse Caruso CUSHION MAT MAKER to ensure ordering correct heparin order set. [...] the surgery. I communicated with cardiothoracic Physician Slat Pickler Jacob and he recommends on discharging patient outpatient follow-up. In the ED patient is awake alert his vitals are stable pulse ox continues to be 97% room air he is afebrile blood pressure 131/78. Discharged with encouragement to call cardiothoracic surgery tomorrow and was to return to the ED for any worsening symptom and he expressed understanding. documented in this encounter Seen by [facility] post discharge and reviewed AVS. [...] therapy. Associated Problem(s): Coronary artery disease involving [place] coronary artery of [place] heart without angina pectoris Patient has a [...] otherwise. documented in this encounter Seen by [facility] post discharge and reviewed AVS. [...] Fernando Helton Admit Date: [id number] MR #: [id number] : 1970 The H&P has been reviewed and the patient has been examined. I concur with the findings of the H&P. There are no significant changes. It is appropriate to proceed with the planned procedure. Carlo Mercedes MD 01/20/2019 8:24 AM Reason for consult-chest pain LUMMI-patient is a pleasant 48-year-old man with medical history significant for CAD status post PCI to LAD in 2012 for CA presentation-presented again in 2014 with in-stent restenosis-underwent [...] have been negative, EKG shows old anterolateral CA with mild ST-T changes, d-dimer is negative [...] right leg COPD (chronic obstructive pulmonary disease) ([facility]) Fatigue GERD (gastroesophageal reflux disease) Headache HLD (hyperlipidemia) HTN (hypertension) Metabolic syndrome Mood disorder ([facility]) Obstructive sleep apnea Pneumomediastinum ([facility]) 01/2007 Rotator cuff tear, right 1997 s/p repair SLAP tear of shoulder 2011 left - s/p surgery to place [address] elevation myocardial infarction (STEMI) of anterolateral wall ([facility]) 05/09/12 Past Surgical History: Procedure Laterality Date [...] file Gets together: Not on file Attends mormon service: Not on file Active member of [...] 2 puff 2 puff Inhalation BID Meron oRper MD 2 puff at 01/18/19 0811 carvedilol [...] similar to his pain prior to the CA will plan for a left heart cath on 01/20/2019 - Continue heparin as per ACS protocol with a target APTT of 60 to 80 seconds - Okay to use Nitropaste - Continue aspirin, Effient, statin - Continue Coreg, enalapril and Lasix Electronically Signed by: Carlo Mercedes M.D 01/18/19 8:19 AM [facility] Medicine Inpatient H&P 01/17/2019 Meron Roper MD [facility] Patient: Fernando Helton Date of : 1970 [...] 1998 CAD (coronary artery disease) CAD s/p [facility] with 1 stent in left main 07/2012, replaced 09/2014 Chest pain Circulation problem right leg COPD (chronic obstructive pulmonary disease) ([facility]) Fatigue GERD (gastroesophageal reflux disease) Headache HLD (hyperlipidemia) HTN (hypertension) Metabolic syndrome Mood disorder ([facility]) Obstructive sleep apnea Pneumomediastinum ([facility]) 01/2007 Rotator cuff tear, right 1997 s/p repair SLAP tear of shoulder 2011 left - s/p surgery to place [address] elevation myocardial infarction (STEMI) of anterolateral wall ([facility]) 05/09/12 Past Surgical History: Procedure Laterality Date [...] Reviewed 7:22 PM documented in this encounter [facility] Medicine Inpatient H&P 10/16/2019 Nallely Goodwin CNP [facility] Patient: Fernando Helton Date of : 1970 (49 y.o.) PCP: Moises Patel MD ASSESSMENT/PLAN: Fernando Helton 49 y.o. male with history of HTN, HLD, CAD sp 1v CABG, COPD, DM Type II, ISAC non compliant CPAP, cardiac arrest VFib in 2014, chronic diastolic heart failure, GERD. Active Problems: Near syncope Coronary artery disease involving [place] coronary artery of [place] heart without angina pectoris COPD (chronic obstructive pulmonary disease) ([facility]) PLAN: Admit to med surg cardiac monitoring [...] Medical History: Diagnosis Date Acute respiratory failure ([facility]) 09/2014 requring mechanical ventilation Anxiety Bilateral lower extremity edema R > L CAD (coronary artery disease) CAD s/p [facility] with 1 stent in left main 07/2012, replaced 09/2014 Cardiac arrest with ventricular fibrillation (HCC) 09/25/2014 CHF (congestive heart failure), NYHA class I, chronic, diastolic (HCC) Chronic sinusitis Claudication of right lower extremity (HCC) Cluster headache COPD (chronic obstructive pulmonary disease) (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 Bev Tolentino Metabolic syndrome Mood disorder ([facility]) Nasal fracture Obstructive sleep apnea noncompliant with CPAP Orthostatic dizziness with intermittent syncope Pericarditis 02/25/07; 09/23/17 Pneumomediastinum ([facility]) 01/12/2007 secondary to severe coughing spell & ruptured alveoli Rotator cuff tear, right 1997 s/p repair SLAP tear of shoulder 2011 left - s/p surgery to place [address] elevation myocardial infarction (STEMI) of anterolateral wall ([facility]) 05/09/2012 anterolateral STEMI involving left anterior descending coronary artery ([facility]) 09/25/2014 anterior Superficial thrombophlebitis of right upper extremity 12/26/2006 Past Surgical History: Procedure Laterality Date APPENDECTOMY 1998 BONE MARROW BIOPSY W/ ASPIRATION Left 11/27/2016 L posterior iliac crest; Dr. Bev Tolentino CABG OFF PUMP N/A 01/24/2019 Procedure: Coronary Artery Bypass graft x1 with Left Internal Mammary Artery graft, OFF PUMP; Surgeon: Neo Mcneil MD; Location: [facility]; Service: Cardiothoracic CARDIAC CATHETERIZATION 09/24/2014 [...] Heart Cath; Surgeon: Carlo Mercedes MD; Location: [facility]; Service: Cardiovascular IABP placement 05/09/[address] [...] ms QTC Calculation (Bezet) 461 ms P [place] 61 degrees R [place] -4 degrees T [place] 80 degrees Alcohol, Medical Collection Time: 10/15/19 [...] intracranial CTA. 3. No enhancing intracranial process. ELVPHD/Springest Workstation ID: [id number] Ct Head Or Brain [...] EDT Patient seen and managed independently by PATIENT FINANCIAL SERVICES MANAGER. I did not participate in the care of this patient, but was available for immediate consultation if requested by the PATIENT FINANCIAL SERVICES MANAGER. documented in this encounter [facility] Medicine Inpatient H&P 09/22/2019 Good Macias MD [facility] Patient: Fernando Helton Date of : 1970 (49 y.o.) PCP: Moises Patel MD Assessment Fernando Helton 49 y.o. male with history of hypertension dyslipidemia diabetes coronary artery disease status post CABG presenting with slurred speech altered mental status which has resolved at arrival to ED Principal Problem: TIA (transient ischemic attack) Active Problems: Essential hypertension Mixed hyperlipidemia Coronary artery disease involving [place] coronary artery of [place] heart without angina pectoris GERD (gastroesophageal reflux disease) PAD (peripheral artery disease) ([facility]) Plan: Admit for observation Continue on telemetry [...] Medical History: Diagnosis Date Acute respiratory failure ([facility]) 09/2014 requring mechanical ventilation Anxiety Bilateral lower extremity edema R > L CAD (coronary artery disease) CAD s/p [facility] with 1 stent in left main 07/2012, replaced 09/2014 Cardiac arrest with ventricular fibrillation ([facility]) 09/25/2014 CHF (congestive heart failure), NYHA class I, chronic, diastolic ([facility]) Chronic sinusitis Claudication of right lower extremity ([facility]) Cluster headache COPD (chronic obstructive pulmonary disease) (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 Bve Tolentino Metabolic syndrome Mood disorder ([facility]) Nasal fracture Obstructive sleep apnea noncompliant with CPAP Orthostatic dizziness with intermittent syncope Pericarditis 02/25/07; 09/23/17 Pneumomediastinum (HCC) 01/12/2007 secondary to severe coughing spell & ruptured alveoli Rotator cuff tear, right 1997 s/p repair SLAP tear of shoulder 2011 left - s/p surgery to place [address] elevation myocardial infarction (STEMI) of anterolateral wall ([facility]) 05/09/2012 anterolateral STEMI involving left anterior descending coronary artery ([facility]) 09/25/2014 anterior Superficial thrombophlebitis of right upper [...] Heart Cath; Surgeon: Carlo Mercedes MD; Location: [facility]; Service: Cardiovascular IABP placement 05/09/[address] [...] Reviewed 10:48 AM documented in this encounter Kristin Byrnes PA-C - 01/29/2019 8:24 AM Kristin [...] stat portable chest x-ray. SWAN LINE REMOVAL W[place]-Isaiah catheter was removed at this time with patient lying flat. A single lumen infusion catheter was then sterilely placed right IJ cordis. Patient tolerated this very well. There were no immediate complications. documented in this encounter Care Teams (unrecognized sec tion and content) Professor Of Biochemistry Relationship Specialty Start Date End Date Moises Patel MD [address] [place] [address] PCP - General Family Medicine 09/20/17 Maykel Weathers II, MD [address] [place] [address] Consulting Physician Internal Medicine 05/17/15 Maximiliano Chiang MD [address] [place] [address] Consulting Physician General Surgery 07/14/19 Rubi White, PATIENT FINANCIAL SERVICES MANAGER [address] [facility] [place] [address] Nurse Practitioner Nurse Practitioner 07/14/19 Devendra Freitas III, DO [address] [place] [address] Consulting Physician Vascular Surgery 07/14/19 Professor Of Biochemistry Relationship Specialty Start Date End Date Moises Patel MD PCP - General Family Medicine 03/17/13 Professor Of Biochemistry Relationship Specialty Start Date End Date Moises Patel MD [address] [place] [address] PCP - General Family Medicine 09/20/17 Maykel Weathers II, MD [address] [place] [address] Consulting Physician Internal Medicine 05/17/15 Maximiliano Chiang MD [address] [place] [address] Consulting Physician General Surgery 07/14/19 Rubi White, PATIENT FINANCIAL SERVICES MANAGER [address] [facility] [place] [address] Nurse Practitioner Nurse Practitioner 07/14/19 Devendra Freitas III, DO [address] [facility] [place] [address] Consulting Physician Vascular Surgery 07/14/19 Professor Of Biochemistry Relationship Specialty Start Date End Date Moises Patel MD [address] [place] [address] PCP - General Family Medicine 09/20/17 Maykel Weathers II, MD [address] [place] [address] Consulting Physician Internal Medicine 05/17/15 Maximiliano Chiang MD [address] [place] [address] Consulting Physician General Surgery 07/14/19 Rubi White, PATIENT FINANCIAL SERVICES MANAGER [address] [place] [address] Nurse Practitioner Nurse Practitioner 07/14/19 Devendra Freitas III, DO [address] [place] [address] Consulting Physician Vascular Surgery 07/14/19 Professor Of Biochemistry Relationship Specialty Start Date End Date Moises Patel MD PCP - General Family Medicine 03/17/13 Professor Of Biochemistry Relationship Specialty Start Date End Date Moises Patel MD [address] [place] [address] PCP - General Family Medicine 09/20/17 Maykel Weathers II, MD [address] [place] [address] Consulting Physician Internal Medicine 05/17/15 Maximiliano Chiang MD [address] [place] [address] Consulting Physician General Surgery 07/14/19 Rubi White, PATIENT FINANCIAL SERVICES MANAGER [address] [place] [address] Nurse Practitioner Nurse Practitioner 07/14/19 Devendra Freitas III, DO [address] [place] [address] Consulting Physician Vascular Surgery 07/14/19 Professor Of Biochemistry Relationship Specialty Start Date End Date Moises Patel MD [address] [place] [address] PCP - General Family Medicine 09/20/17 Maykel Weathers II, MD [address] [place] [address] Consulting Physician Internal Medicine 05/17/15 Maximiliano Chiang MD [address] [place] [address] Consulting Physician General Surgery 07/14/19 Rubi White CNP [address] [place] [address] Nurse Practitioner Nurse Practitioner 07/14/19 Devendra Freitas III, DO [address] [place] [address] Consulting Physician Vascular Surgery 07/14/19 Professor Of Biochemistry Relationship Specialty Start Date End Date Moises Patel MD [address] [place] [address] PCP - General Family Medicine 09/20/17 Maykel Weathers II, MD [address] [place] [address] Consulting Physician Internal Medicine 05/17/15 Maximiliano Chiang MD [address] [place] [address] Consulting Physician General Surgery 07/14/19 Rubi White PATIENT FINANCIAL SERVICES MANAGER [address] [facility] [place] [address] Nurse Practitioner Nurse Practitioner 07/14/19 Devendra Freitas III, DO [address] [facility] [place] [address] Consulting Physician Vascular Surgery 07/14/19 Professor Of Biochemistry Relationship Specialty Start Date End Date Moises Patel MD [address] [place] [address] PCP - General Family Medicine 09/20/17 Maykel Weathers II, MD [address] [place] [address] Consulting Physician Internal Medicine 05/17/15 Carlo Mercedes MD [address] [place] [address] Cardiology 07/14/19 07/12/20 Maximiliano Chiang MD [address] [facility] [place] [address] Consulting Physician General Surgery 07/14/19 Rubi White CNP [address] [facility] [place] [address] Nurse Practitioner Nurse Practitioner 07/14/19 Devendra Freitas III, DO [address] [place] [address] Consulting Physician Vascular Surgery 07/14/19 Professor Of Biochemistry Relationship Specialty Start Date End Date Moises Patel MD [address] [place] [address] PCP - General Family Medicine 09/20/17 Maykel Weathers II, MD [address] [facility] [place] [address] Consulting Physician Internal Medicine 05/17/15 Carlo Mercedes MD [address] [place] [address] Cardiology 07/14/19 07/12/20 Maximiliano Chiang MD [address] [place] [address] Consulting Physician General Surgery 07/14/19 Rubi White, PATIENT FINANCIAL SERVICES MANAGER [address] [facility] [place] [address] Nurse Practitioner Nurse Practitioner 07/14/19 Devendra Freitas III, DO [address] [facility] [place] [address] Consulting Physician Vascular Surgery 07/14/19 Professor Of Biochemistry Relationship Specialty Start Date End Date Moises Patel MD [address] [place] [address] PCP - General Family Medicine 09/20/17 Maykel Weathers II, MD [address] [place] [address] Consulting Physician Internal Medicine 05/17/15 Carlo Mercedes MD [address] [place] [address] Cardiology 07/14/19 07/12/20 Maximiliano Chiang MD [address] [place] [address] Consulting Physician General Surgery 07/14/19 Rubi White, PATIENT FINANCIAL SERVICES MANAGER [address] [facility] [place] [address] Nurse Practitioner Nurse Practitioner 07/14/19 Devendra Freitas III, DO [address] [place] [address] Consulting Physician Vascular Surgery 07/14/19 Professor Of Biochemistry Relationship Specialty Start Date End Date Moises Patel MD [address] [place] [address] PCP - General Family Medicine 12/28/14 09/19/17 Moises Patel MD [address] [place] [address] PCP - General Family Medicine 09/20/17 Maykel Weathers II, MD [address] [facility] [place] [address] Consulting Physician Internal Medicine 05/17/15 Carlo Mercedes MD [address] [facility] [place] [address] Cardiology 07/14/19 07/12/20 Maximiliano Chiang MD [address] [address] Consulting Physician General Surgery 07/14/19 Rubi White CNP [address] [place] [address] Nurse Practitioner Nurse Practitioner 07/14/19 Devendra Freitas III, DO [address] [place] [address] Consulting Physician Vascular Surgery 07/14/19 Professor Of Biochemistry Relationship Specialty Start Date End Date Moises Patel MD [address] [place] [address] PCP - General Family Medicine 12/28/14 09/19/17 Moises Patel MD [address] [place] [address] PCP - General Family Medicine 09/20/17 Maykel Weathers II, MD [address] [facility] [place] [address] Consulting Physician Internal Medicine 05/17/15 Carlo Mercedes MD [address] [facility] [place] [address] Cardiology 07/14/19 07/12/20 Maximiliano Chiang MD [address] [place] [address] Consulting Physician General Surgery 07/14/19 Rubi White CNP [address] [place] [address] Nurse Practitioner Nurse Practitioner 07/14/19 Devendra Freitas III, DO [address] [facility] [place] [address] Consulting Physician Vascular Surgery 07/14/19 Professor Of Biochemistry Relationship Specialty Start Date End Date Moises Patel MD [address] [place] [address] PCP - General Family Medicine 12/28/14 09/19/17 Moises Patel MD [address] [place] [address] PCP - General Family Medicine 09/20/17 Maykel Weathers II, MD [address] [place] [address] Consulting Physician Internal Medicine 05/17/15 Calro Mercedes MD [address] [place] [address] Cardiology 07/14/19 07/12/20 Maximiliano Chiang MD [address] [place] [address] Consulting Physician General Surgery 07/14/19 Rubi White, JIM [address] [facility] [place] [address] Nurse Practitioner Nurse Practitioner 07/14/19 Devendra Freitas III, DO [address] [facility] [address] Consulting Physician Vascular Surgery 07/14/19 Professor Of Biochemistry Relationship Specialty Start Date End Date Moises Patel MD [address] [place] [address] PCP - General Family Medicine 12/28/14 09/19/17 Moises Patel MD [address] [place] [address] PCP - General Family Medicine 09/20/17 Maykel Weathers II, MD [address] [place] [address] Consulting Physician Internal Medicine 05/17/15 Carlo Mercedes MD [address] [place] [address] Cardiology 07/14/19 07/12/20 Maximiliano Chiang MD [address] [place] [address] Consulting Physician General Surgery 07/14/19 Rubi White CNP [address] [place] [address] Nurse Practitioner Nurse Practitioner 07/14/19 Devendra Freitas III, DO [address] [place] [address] Consulting Physician Vascular Surgery 07/14/19 Professor Of Biochemistry Relationship Specialty Start Date End Date Moises Patel MD [address] [place] [address] PCP - General Family Medicine 09/20/17 Maykel Weathers II, MD [address] [place] [address] Consulting Physician Internal Medicine 05/17/15 Maximiliano Chiang MD [address] [place] [address] Consulting Physician General Surgery 07/14/19 Rubi White CNP [address] [facility] [place] [address] Nurse Practitioner Nurse Practitioner 07/14/19 Devendra Freitas III, DO [address] [facility] [place] [address] Consulting Physician Vascular Surgery 07/14/19 Team Status: [...] BE BASED ON THE PRIMARY CLINICAL RECORDS. [facility]. provides no warranty or guarantee of the accuracy or completeness of information in this document.
[2023-02-28] MEDS: GUAIFENESIN 600 MG TAB.ER.12H PO (20:54)
[2023-02-28] MEDS: 0.9 % SODIUM CHLORIDE 1,000 ML 100 ML IV (20:54)
--- NOTE | 2023-02-28 22:59 | RESP.RT ---
No PRN breathing tx given. Pt denies need. No respiratory distress noted.
[2023-03-01] VITALS (18 sets, daily range): BP systolic 125–161; BP diastolic 70–93; PULSE 106–140; RESP 16–24; TEMP 36.4–36.6; O2SAT 91–97
[2023-03-01] MEDS: METHYLPREDNISOLONE SOD SUCC PF 125 MG/2 ML VIAL 60 MG IVP ×2 (01:14→10:35)
[2023-03-01] MEDS: IPRATROPIUM/ALBUTEROL SULFATE 3 ML AMPUL.NEB IH ×3 (01:24→11:38)
[2023-03-01] MEDS: ACETAMINOPHEN 325 MG TABLET 650 MG PO (02:05)
--- NOTE | 2023-03-01 02:19 | ECG_ITS ---
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
[2023-03-01] MEDS: NITROGLYCERIN 0.4 MG BOTTLE SL ×3 (02:45→02:57)
--- NOTE | 2023-03-01 02:45 | ECG_ITS ---
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
[2023-03-01] MEDS: CALCIUM CARBONATE 500 MG (200MG ELEMENTAL) TAB CHEW PO (02:59)
[2023-03-01] MEDS: MORPHINE SULFATE 4 MG/ML VIAL 2 MG IV (03:06)
[2023-03-01 05:10] LABS: Basophils Percent Auto 0.1 % (0.2-2.0); Hematocrit 44.1 % (42.0-54.0); Hemoglobin 14.8 g/dL (14.0-18.0); Immature Granulocytes Abs Auto 0.09 10^3/uL (0.00-0.03); Immature Granulocytes Pct Auto 0.7 % (0.0-0.5); Lymphocytes Absolute Auto 0.9 10^3/uL (1.2-3.8); Lymphocytes Percent Auto 6.7 % (20.5-60.0); Mean Corpuscular HGB Conc 33.6 g/dL (29.9-35.2); Mean Corpuscular Hemoglobin 28.2 pg (25.9-34.0); Mean Corpuscular Volume 84.2 fL (80.0-94.0); Mean Platelet Volume 10.6 fL (9.5-13.5); Monocytes Absolute Auto 0.2 10^3/uL (0.3-0.8); Monocytes Percent Auto 1.2 % (1.7-12.0); Neutrophils Absolute Auto 12.5 10^3/uL (1.4-6.5); Neutrophils Percent Auto 91.3 % (43.0-75.0); Platelet Count 265 10^3/uL (150-450); Red Blood Count 5.24 10^6/uL (4.70-6.10); Red Cell Distribution Width 14.2 % (11.0-15.0); White Blood Count 13.7 10^3/uL (4.0-11.0)
[2023-03-01 05:39] LABS: Anion Gap 18.1; Calcium 8.7 mg/dL (8.5-10.1); Chloride 102 mmol/L (98-107); Estimated GFR (African America >60 (>=60); Estimated GFR (Non-African Ame >60 (>=60); Glucose 268 mg/dL (74-106); Potassium 4.1 mmol/L (3.5-5.1); Sodium 135 mmol/L (136-145)
[2023-03-01] MEDS: 0.9 % SODIUM CHLORIDE 1,000 ML 100 ML IV (05:51)
--- OUTSIDE RECORDS SUMMARY | 2023-03-01 07:39 | XMS_ITS | CCD ---
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 #### A CBC, PT, LIVR, CHEM7F #### Testing performed at [address] [address] Bilirubin [Mass/Vol] 0.6 mg/dL Normal 0.2-1.2 [facility] Comment on above: Performed By: #### A CBC, PT, LIVR, CHEM7F #### Testing performed at [place] [id number] Bilirubin.direct [Mass/Vol] 0.1 mg/dL Normal 0.0-0.2 [facility] Comment on above: Performed By: #### A CBC, PT, LIVR, CHEM7F #### [place] [address] Protein [Mass/Vol] 7.1 g/dL Normal 6.3-8.2 [facility] Comment on above: Performed By: #### A CBC, PT, LIVR, CHEM7F #### [place] [address] NOVEL CORONAVIRUSon 20 21 NARRATIVE This test was perfor med using isothermal MEGHANN and has been approved as Emergency Use Authorization (EUA) for the qualitative detection [id number] nucleic acid. Normal [facility] Comment on above: Performed By: #### C OVID #### [place] [address] SARS-COV-2 NOT DETECTED Normal NOT DETECTED [facility] Comment on above: Result Comment: Nega tive [...] #### C OVID #### [place] [address] PROTIMEon 04-25-2020 INR Coag (PPP) [Relative time] 0.97 {INR} Normal 0.88-1.12 [facility] Comment on above: Result Comment: 2.0-3.0 THERAPEUTIC RANGE 2.5-3.5 MECHANICAL VALVE RANGE Performed By: #### A CBC, PT, LIVR, CHEM7F #### Testing performed at [address] [address] PT Coag (PPP) [Time] 12.7 s Normal 11.8-14.4 [facility] Comment on above: Performed By: #### A CBC, PT, LIVR, CHEM7F #### Testing performed at [address] [address] RAPID FLU Aon 04-25-2020 INFLUENZA A Negative Normal NEGATIVE [facility] Comment on above: Performed By: #### R FLUAB #### Testing performed at [address] [address] INFLUENZA B Negative Normal NEGATIVE [facility] Comment on above: Result Comment: TEST ING PERFORMED BY MEGHANN Performed By: #### R FLUAB #### Testing performed at [address] [address] TROPONIN I, HIGH SENSITIVITY on 04-25-2020 TROPONIN I, HIGH SENSITIVITY 7 pg/mL Normal 0-20 [facility] Comment on above: Result Comment: Indeterminant: >12 to 100 pg/mL female >20 to 100 pg/mL male Indicative of myocardial injury. Serial sampling is recommended, a change of greater than or equal to 20 pg/mL is indicative of acute coronary syndrome. Performed By: #### R FLUAB #### Testing performed at [address] [address] XR CHEST AP PORTABLEon 04-25 XR CHEST AP PORTABLE EXAM: XR CHEST AP PORTABLE HISTORY: sob COMPARISON: Portable chest from 01/08/2018. TECHNIQUE: Portable chest was done at 5:41 PM. FINDINGS: Sternal wires indicate prior surgery. Trachea, mediastinum, heart size, diaphragm and bony elements are intact. No infiltrate or nodule or effusion or pneumothorax is noted. IMPRESSION: Nonacute portable chest. Normal [facility] XR CHEST PA AND LATERALon XR CHEST PA AND LATERAL EXAM: XR CHEST P A AND LATERAL 12/31/2019 2:56 PM EST HISTORY: sob COMPARISON: 01/08/2018 TECHNIQUE: PA and lateral views FINDINGS: Lungs are clear. The cardiomediastinal configuration is within normal limits. No acute bony abnormalities. Median sternotomy wires are visualized. IMPRESSION: No acute cardiopulmonary abnormalities. Normal [facility] COVID-19, MOLECULARon 2019 SARS-COV-2 RNA (KELL) Not Detected Normal Not Detected [facility] Comment on above: Result Comment: This [...] at the following links: For Healthcare Providers: https://www.fda.gov/media/314434/download For Patients: https://www.fda.gov/media/964301/download Performed By: #### L [id number] #### [facility] [address] [place] [address] Roby Santos M.D. [id number] CBC WITH AUTO DIFFERENTIALon 10-16-2019 Basophils (Bld) [#/Vol] 0.10 10*3/uL [facility] Basophils/100 WBC (Bld) 0.6 % [facility] Eosinophils (Bld) [#/Vol] 0.21 10*3/uL [facility] Eosinophils/100 WBC (Bld) 1.3 % [facility] Erythrocyte distribution width (RBC) [Entitic vol] 15.3 % High 11.6 - 14.8 % [facility] Hematocrit (Bld) [Volume fraction] 47.6 % 41 - 53 % [facility] Hemoglobin (Bld) [Mass/Vol] 15.2 g/dL 13.5 - 17.5 g/dL [facility] Immature granulocytes (Bld) [#/Vol] 0.11 10*3/uL [facility] Immature granulocytes/100 WBC (Bld) 0.70 % [facility] Comment on above: The IG parameter is the percentage of metamyelocytes, myelocytes and promyelocytes. An immature granulocyte count (IG) of 1% or more suggests the possibility of infection, an IG count of 3% is very likely related to an infection. Interpretation and review of laboratory results Abnormal [facility] Lymphocytes (Bld) [#/Vol] 5.08 10*3/uL High [facility] Lymphocytes/100 WBC (Bld) 32.5 % [facility] MCH (RBC) [Entitic mass] 27.4 pg 26 - 34 pg [facility] MCHC (RBC) [Mass/Vol] 31.9 g/dL 31 - 3 7 g/dL [facility] MCV (RBC) [Entitic vol] 85.9 fL 80 - 100 fL [facility] Monocytes (Bld) [#/Vol] 1.39 10*3/uL High [facility] Monocytes/100 WBC (Bld) 8.9 % [facility] Neutrophils (Bld) [#/Vol] 8.72 10*3/uL High [facility] Neutrophils/100 WBC (Bld) 56.0 % [facility] Comment on above: Peripheral smear rev iewed manually Nucleated RBC (Bld) [#/Vol] 0.00 10*3/uL [facility] Nucleated RBC/100 WBC (Bld) [Ratio] 0.0 % [facility] Platelet mean volume (Bld) [Entitic vol] 10.3 fL 9.4 - 12.4 fL [facility] Platelets (Bld) [#/Vol] 306 10*3/uL [facility] RBC (Bld) [#/Vol] 5.54 10*6/uL [facility] WBC (Bld) [#/Vol] 15.61 10*3/uL [facility] Comprehensive Metabolic Pane sangeetha 10-16-2019 Albumin [Mass/Vol] 3.2 g/dL 3.2 - 5.2 g/dL [facility] ALP [Catalytic activity/Vol] 87 U/L 40 - 150 U/L [facility] ALT [Catalytic activity/Vol] 46 U/L 14 - 65 U/L [facility] Anion gap [Moles/Vol] 10 mmol/L 10 - 2 0 mmol/L [facility] AST [Catalytic activity/Vol] 16 U/L 0 - 45 U/L [facility] Bilirubin [Mass/Vol] 0.4 mg/dL 0 - 1.3 mg/dL [facility] Calcium [Mass/Vol] 8.7 mg/dL 8.4 - 10. 2 mg/dL [facility] Chloride [Moles/Vol] 108 mmol/L 98 - 10 8 mmol/L [facility] Creatinine [Mass/Vol] 1.09 mg/dL 0.50 - 1.30 [facility] GFR/1.73 sq M predicted among non-blacks MDRD (S/P/Bld) [Vol rate/Area] The eGFR should be used for monitoring renal function only and not for medication dosing. [facility] GFR/1.73 sq M.predicted CKD-EPI (S/P/Bld) [Vol rate/Area] 80 >=60 mL/min/1.7 3 m2 [facility] Glucose [Mass/Vol] 117 mg/dL High 65 - 99 mg/dL [facility] HCO3 [Moles/Vol] 26 mmol/L 21 - 32 mmol/L [facility] Interpretation and review of laboratory results Abnormal [facility] Potassium [Moles/Vol] 3.7 mmol/L 3.5 - 5.1 mmol/L [facility] Protein [Mass/Vol] 6.5 g/dL 6 - 8 g/dL [facility] Sodium [Moles/Vol] 140 mmol/L 135 - 145 mmol/L [facility] Urea nitrogen [Mass/Vol] 28 mg/dL High 8 - 25 mg/dL [facility] Urea nitrogen/Creatinine [Mass ratio] 25.7 mg/mg High [facility] ECG 12-LEADon 10-16-2019 Atrial Rate 76 BPM [facility] P [place] 74 degrees [facility] P-R Interval 174 ms [facility] Q-T Interval 424 ms [facility] QRS Duration 90 ms [facility] QTC Calculation (Bezet) 477 ms [facility] R [place] 11 degrees [facility] T [place] 62 degrees [facility] Ventricular Rate 76 BPM [facility] Normal sinus rhythm Anteroseptal infarct , age undetermined Abnormal ECG Confirmed by DEMETRIO WARREN, EMMA ([id number]) on 10/16/2019 8:22:19 AM [facility] ECHOCARDIOGRAM 2D COMPLETEon 10-16-2019 Aortic valve area 3.82385 cm [facility] AV mean gradient 2.75036 mmHg [facility] th AV peak gradient 3.6017 mmHg [facility] EF 38.6259 % [facility] Interface, Rad In [facility] Xper Echopacs - 10/16/2019 11:49 AM EDT Patient Info Name: FERNANDO HELTON Age: 49 years : 1970 Gender: Male Ht: 168 cm Wt: 118 kg BSA: 2.40 m2 HR: 72 bpm BP: 136 / 94 mmHg Heart Rhythm: Sinus Rhythm Technical Quality: Fair Exam Date: 10/16/2019 9:53 AM Patient Status: Outpatient 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 Left ventricular [...] mmHg MV VTI 27.22 cm MV Decel Sebastian 300.69 cm/s2 MV PHT 71 ms MV [...] ml/m2 16.00-34.00 RA Dimensions RA Systolic Major [place] Length (4C) 5.70 cm <=5.30 RA Area (4C) 15.87 cm2 <=18.00 RA Area (4C) Index 6.60 cm2/m2 RA ESV (4C MOD) 38.16 ml 18.00-32.00 RA ESV Index (4C MOD) 15.87 ml/m2 <=32.00 Report Signatures Finalized by Emma Bueno MD on 10/16/2019 11:48 AM [facility] Patient Info Name: Andrew HELTON Age: 49 years : 1970 Gender: Male Ht: 168 cm Wt: 118 kg BSA: 2.40 m2 HR: 72 bpm BP: 136 / 94 mmHg Heart Rhythm: Sinus Rhythm Technical Quality: Fair Exam Date: 10/16/2019 9:53 AM Patient Status: Outpatient 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 Left ventricular [...] mmHg MV VTI 27.22 cm MV Decel Sebastian 300.69 cm/s2 MV PHT 71 ms MV [...] ml/m2 16.00-34.00 RA Dimensions RA Systolic [place] Length (4C) 5.70 cm <=5.30 RA Area (4C) 15.87 cm2 <=18.00 RA Area (4C) Index 6.60 cm2/m2 RA ESV (4C MOD) 38.16 ml 18.00-32.00 RA ESV Index (4C MOD) 15.87 ml/m2 <=32.00 Report Signatures Finalized by Emma Bueno MD on 10/16/2019 11:48 AM [facility] EKGon 10-16-2019 Ordered by an unspec ified provider. [facility] MORPHOLOGYon 10-16-2019 RBC morphology finding Nom (Bld) Normal [facility] Comment on above: RBC Indices confirme d with manual peripheral smear review. Magnesiumon 10-16-2019 Interpretation and review of laboratory results Normal [facility] Magnesium [Mass/Vol] 2.1 mg/dL 1.6 - 2 .4 mg/dL [facility] POC Glucoseon 10-16-2019 Glucose [Mass/Vol] 118 mg/dL High 65 - 99 mg/dL [facility] Interpretation and review of laboratory results Abnormal [facility] TROPONINon 10-16-2019 Troponin I.cardiac [Mass/Vol] ng/mL <=45 ng/L [facility] Troponin I.cardiac [Mass/Vol] Normal [facility] URINALYSISon 10-16-2019 Bacteria Auto Ql (U) None Seen None Se en /hpf [facility] Bilirubin Ql (U) Negative Negative [facility] th Clarity Refractometry automated (U) Clear Clear [facility] Color (U) Yellow Colorless, Yellow [facility] Epithelial cells.squamous Auto (Urine sed) [#/Area] <1 [facility] Glucose Auto test strip (U) [Mass/Vol] 50 Abnormal Negative mg/dL [facility] Hemoglobin Auto test strip Ql (U) Negative Negative [facility] Interpretation and review of laboratory results Abnormal [facility] Ketones (U) [Mass/Vol] Negative Negat bryan mg/dL [facility] Leukocyte esterase Auto test strip Ql (U) Negative Negative [facility] Nitrite Auto test strip Ql (U) Negative Negative [facility] pH (U) 5.5 [pH] [facility] Protein (U) [Mass/Vol] Negative Negat bryan mg/dL [facility] RBC Auto (Urine sed) [#/Area] 2 [facility] Specific gravity (U) [Rel density] 1.033 High [facility] Urobilinogen (U) [Mass/Vol] <2.0 <2.0 mg/dL [facility] WBC Auto (Urine sed) [#/Area] <1 [facility] Microscopic examinat ion is performed on all urinalysis samples and only positive findings are reported. The test for blood on the chemical analytic portion of urinalysis may also be positive due to hemoglobinuria and myoglobinuria and if red blood cells are present they are quantified by microscopic examination. [facility] Alcohol, Medicalon 0 Ethanol [Mass/Vol] mg/dL <10.00 mg/dL [facility] Comment on above: Alcohol cutoff: <10. 00 mg/dL = None Detected Interpretation and review of laboratory results Normal [facility] BMPon 10-15-2019 Anion gap [Moles/Vol] 10 mmol/L 10 - 2 0 mmol/L [facility] Calcium [Mass/Vol] 9.0 mg/dL 8.4 - 10. 2 mg/dL [facility] Chloride [Moles/Vol] 108 mmol/L 98 - 10 8 mmol/L [facility] Creatinine [Mass/Vol] 1.41 mg/dL High 0.50 - 1.30 [facility] GFR/1.73 sq M predicted among non-blacks MDRD (S/P/Bld) [Vol rate/Area] The eGFR should be used for monitoring renal function only and not for medication dosing. [facility] GFR/1.73 sq M.predicted CKD-EPI (S/P/Bld) [Vol rate/Area] 58 Low >=60 mL/min/1.7 3 m2 [facility] Glucose [Mass/Vol] 203 mg/dL High 65 - 99 mg/dL [facility] HCO3 [Moles/Vol] 23 mmol/L 21 - 32 mmol/L [facility] Interpretation and review of laboratory results Abnormal [facility] Potassium [Moles/Vol] 4.2 mmol/L 3.5 - 5.1 mmol/L [facility] Sodium [Moles/Vol] 137 mmol/L 135 - 145 mmol/L [facility] Urea nitrogen [Mass/Vol] 27 mg/dL High 8 - 25 mg/dL [facility] Urea nitrogen/Creatinine [Mass ratio] 19.1 mg/mg [facility] CBC WITH AUTO DIFFERENTIALon 10-15-2019 Basophils (Bld) [#/Vol] 0.05 10*3/uL [facility] Basophils/100 WBC (Bld) 0.3 % [facility] Eosinophils (Bld) [#/Vol] 0.01 10*3/uL [facility] Eosinophils/100 WBC (Bld) 0.1 % [facility] Erythrocyte distribution width (RBC) [Entitic vol] 15.3 % High 11.6 - 14.8 % [facility] Hematocrit (Bld) [Volume fraction] 45.2 % 41 - 53 % [facility] Hemoglobin (Bld) [Mass/Vol] 14.6 g/dL 13.5 - 17.5 g/dL [facility] Immature granulocytes (Bld) [#/Vol] 0.15 10*3/uL [facility] Immature granulocytes/100 WBC (Bld) 0.90 % [facility] Comment on above: The IG parameter is the percentage of metamyelocytes, myelocytes and promyelocytes. An immature granulocyte count (IG) of 1% or more suggests the possibility of infection, an IG count of 3% is very likely related to an infection. Lymphocytes (Bld) [#/Vol] 3.35 10*3/uL [facility] Lymphocytes/100 WBC (Bld) 19.9 % [facility] MCH (RBC) [Entitic mass] 27.2 pg 26 - 34 pg [facility] MCHC (RBC) [Mass/Vol] 32.3 g/dL 31 - 3 7 g/dL [facility] MCV (RBC) [Entitic vol] 84.2 fL 80 - 100 fL [facility] Monocytes (Bld) [#/Vol] 1.39 10*3/uL High [facility] Monocytes/100 WBC (Bld) 8.2 % [facility] Neutrophils (Bld) [#/Vol] 11.91 10*3/uL High [facility] Neutrophils/100 WBC (Bld) 70.6 % [facility] Nucleated RBC (Bld) [#/Vol] 0.00 10*3/uL [facility] Nucleated RBC/100 WBC (Bld) [Ratio] 0.0 % [facility] Platelet mean volume (Bld) [Entitic vol] 10.5 fL 9.4 - 12.4 fL [facility] Platelets (Bld) [#/Vol] 329 10*3/uL [facility] RBC (Bld) [#/Vol] 5.37 10*6/uL [facility] ealth WBC (Bld) [#/Vol] 16.86 10*3/uL [facility] COVID-19, Molecularon 2019 Interpretation and review of laboratory results Normal [facility] SARS-CoV-2 Not Detected Not Detected [facility] Comment on above: This test was perfor [...] at the following links: For Healthcare Providers: https://www.Explorys.gov/media/126254/download For Patients: https://www.Explorys.gov/[employer]/755317/download CT HEAD OR BRAIN WITHOUT CON TRASTon [...] of acute intracranial abnormality. Workstation ID: [id number] [facility] EXAMINATION: CT HEAD OR BRAIN WITHOUT CONTRAST [...] TISSUES: Unremarkable. BONES: No acute osseous abnormality. [facility] No CT evidence of ac soni intracranial abnormality. Workstation ID: [id number] [facility] ECG 12-LEADon 10-15-2019 Atrial Rate 85 BPM [facility] P [place] 61 degrees [facility] P-R Interval 170 ms [facility] Q-T Interval 388 ms [facility] QRS Duration 90 ms [facility] QTC Calculation (Bezet) 461 ms [facility] R [place] -4 degrees [facility] T [place] 80 degrees [facility] Ventricular Rate 85 BPM [facility] th Normal sinus rhythm Low voltage QRS Inferior infarct , age undetermined Cannot rule out Anteroseptal infarct , age undetermined Abnormal ECG ECG Cart Interpretation see physician note for interpretation. Confirmed by Brandy Kc ([id number]) on 10/15/2019 10:58:08 PM [facility] Hepatic Function Panel (LFT) on 10-15-2019 Albumin [Mass/Vol] 3.5 g/dL 3.2 - 5.2 g/dL [facility] ALP [Catalytic activity/Vol] 106 U/L 40 - 150 U/L [facility] ALT [Catalytic activity/Vol] 52 U/L 14 - 65 U/L [facility] AST [Catalytic activity/Vol] 21 U/L 0 - 45 U/L [facility] Bilirubin [Mass/Vol] 0.4 mg/dL 0 - 1.3 mg/dL [facility] Bilirubin.conjugated [Mass/Vol] 0.1 mg/dL 0 - 0.4 mg/dL [facility] Protein [Mass/Vol] 7.1 g/dL 6 - 8 g/dL [facility] NT Pro BNPon 10-15-2019 Natriuretic peptide.B prohormone N-Terminal [Mass/Vol] 137 pg/mL 0 - 300 pg/mL [facility] Pride Study Cut-offs Rule In: < /= 50 Years >450 pg/mL 51 Years - 75 Years >900 pg/mL 76 Years - 99 Years >1800 pg/mL Rule Out: All patients <300 pg/mL [facility] Otheron 10-15-2019 Interpretation and review of laboratory results Normal [facility] Interpretation and review of laboratory results Abnormal [facility] POC Glucoseon 10-15-2019 Glucose [Mass/Vol] 189 mg/dL Abnormal 65 - 99 mg/dL [facility] Interpretation and review of laboratory results Abnormal [facility] Glucose [Mass/Vol] 189 mg/dL High 65 - 99 mg/dL [facility] PT/INRon 10-15-2019 INR Coag (PPP) [Relative time] 1.0 {INR} [facility] Interpretation and review of laboratory results Normal [facility] PT Coag (PPP) [Time] 12.7 s [facility] During the induction phase of oral anticoagulation, the INR may not reflect the anticoagulation status of the patient. Therapeutic ranges for INR's are: Most clinical situations: INR 2.0-3.0 Mechanical Prosthetic Valve: INR 2.5-3.5 Critical: INR >5.0 [facility] TROPONINon 10-15-2019 Troponin I.cardiac [Mass/Vol] Normal [facility] Troponin I.cardiac [Mass/Vol] ng/mL <=45 ng/L [facility] XR Chest 1 Viewon 10-15-2019 No acute cardiopulmo nary disease. Workstation ID: [id number] [facility] Interface, Rad In Luis Fernando ji Speechq - 10/15/2019 10:31 PM EDT EXAMINATION: XR CHEST PA/AP, 10/15/2019 HISTORY: diaphoresis COMPARISON: Chest, 09/22/2019. FINDINGS: Sternotomy wires are unchanged. Cardiac size, mediastinal contour and pulmonary vascularity appear within normal limits. The lungs are well expanded and appear clear. IMPRESSION: No acute cardiopulmonary disease. Workstation ID: [id number] [facility] EXAMINATION: XR CHES T PA/AP, 10/15/2019 HISTORY: diaphoresis COMPARISON: Chest, 09/22/2019. FINDINGS: Sternotomy wires are unchanged. Cardiac size, mediastinal contour and pulmonary vascularity appear within normal limits. The lungs are well expanded and appear clear. [facility] EKGon 09-23-2019 Ordered by an unspec ified provider. [facility] Lipid Panelon 09-23-2019 Cholesterol [Mass/Vol] 155 mg/dL 100 - 199 mg/dL [facility] Comment on above: National Cholesterol Education Program Guidelines: Cholesterol Desirable: <200 mg/dL Borderline High: 200-239 mg/dL High: greater than or equal to 240 mg/dL Cholesterol in HDL [Mass/Vol] 38 mg/dL Low 40 - 59 [facility] Comment on above: National Cholesterol Education Program Guidelines: HDL Cholesterol Low: <40 mg/dL Near Optimal: 40-59 mg/dL High: greater than or equal to 60 mg/dL Cholesterol in LDL [Mass/Vol] 79 mg/dL 10 - 130 mg/dL [facility] Comment on above: National Cholesterol Education Program Guidelines: LDL Cholesterol Optimal: <100 mg/dL Near Optimal/above Optimal: 100-129 mg/dL Borderline High: 130-159 mg/dL High: 160-189 mg/dL Very High: greater than or equal to 190 mg/dL Cholesterol non HDL [Mass/Vol] 117 mg/dL [facility] Comment on above: National Cholesterol Education Program Guidelines: NON HDL Cholesterol Desirable: <130 mg/dL Borderline High: 130-159 mg/dL High: 160-189 mg/dL Very High: > or = 190 mg/dL Cholesterol.total/Choles terol in HDL [Mass ratio] 4.1 {ratio} ratio [facility] Comment on above: Males Cholesterol/HD L Ratio: Average risk: 5.0 1/2 average risk: 3.4 2 x average risk: 9.6 Interpretation and review of laboratory results Abnormal [facility] Triglyceride [Mass/Vol] 192 mg/dL High 30 - 150 mg/dL [facility] Comment on above: National Cholesterol Education Program Guidelines: Triglyceride Normal: <150 mg/dL Borderline High: 150-199 mg/dL High: 200-499 mg/dL Very High: greater than or equal to 500 mg/dL MR Brain With And Without Co ntraston 09-23-2019 No acute intracrania l abnormality and no abnormal enhancement within the limitation of the study. Workstation ID: [id number] [facility] Interface, Rad In Luis Fernando Garciaq - [...] limitation of the study. Workstation ID: [id number] [facility] EXAMINATION: MR XIOMARA Kincaid WITH AND WITHOUT [...] No tonsillar ectopia or mass is present.. [facility] POC Glucoseon 09-23-2019 Glucose [Mass/Vol] 102 mg/dL High 65 - 99 mg/dL [facility] Interpretation and review of laboratory results Abnormal [facility] Glucose [Mass/Vol] 110 mg/dL High 65 - 99 mg/dL [facility] Interpretation and review of laboratory results Abnormal [facility] Glucose [Mass/Vol] 123 mg/dL High 65 - 99 mg/dL [facility] Interpretation and review of laboratory results Abnormal [facility] Glucose [Mass/Vol] 113 mg/dL High 65 - 99 mg/dL [facility] Interpretation and review of laboratory results Abnormal [facility] CBC WITH AUTO DIFFERENTIALon 09-22-2019 Basophils (Bld) [#/Vol] 0.10 10*3/uL [facility] Basophils/100 WBC (Bld) 1.0 % [facility] Eosinophils (Bld) [#/Vol] 0.68 10*3/uL High [facility] Eosinophils/100 WBC (Bld) 6.8 % [facility] Erythrocyte distribution width (RBC) [Entitic vol] 15.9 % High 11.6 - 14.8 % [facility] Hematocrit (Bld) [Volume fraction] 44.9 % 41 - 53 % [facility] Hemoglobin (Bld) [Mass/Vol] 14.0 g/dL 13.5 - 17.5 g/dL [facility] Immature granulocytes (Bld) [#/Vol] 0.07 10*3/uL [facility] Immature granulocytes/100 WBC (Bld) 0.70 % [facility] Comment on above: The IG parameter is the percentage of metamyelocytes, myelocytes and promyelocytes. An immature granulocyte count (IG) of 1% or more suggests the possibility of infection, an IG count of 3% is very likely related to an infection. Interpretation and review of laboratory results Abnormal [facility] Lymphocytes (Bld) [#/Vol] 2.50 10*3/uL [facility] Lymphocytes/100 WBC (Bld) 25.2 % [facility] MCH (RBC) [Entitic mass] 26.6 pg 26 - 34 pg [facility] MCHC (RBC) [Mass/Vol] 31.2 g/dL 31 - 3 7 g/dL [facility] MCV (RBC) [Entitic vol] 85.2 fL 80 - 100 fL [facility] Monocytes (Bld) [#/Vol] 0.86 10*3/uL [facility] Monocytes/100 WBC (Bld) 8.7 % [facility] Neutrophils (Bld) [#/Vol] 5.72 10*3/uL [facility] Neutrophils/100 WBC (Bld) 57.6 % [facility] Nucleated RBC (Bld) [#/Vol] 0.00 10*3/uL [facility] Nucleated RBC/100 WBC (Bld) [Ratio] 0.0 % [facility] Platelet mean volume (Bld) [Entitic vol] 10.1 fL 9.4 - 12.4 fL [facility] Platelets (Bld) [#/Vol] 265 10*3/uL [facility] RBC (Bld) [#/Vol] 5.27 10*6/uL [facility]ah WBC (Bld) [#/Vol] 9.93 10*3/uL [facility]-19, Molecularon 2019 Interpretation and review of laboratory results Normal [facility] SARS-CoV-2 Not Detected Not Detected [facility] Comment on above: This test was perfor [...] at the following links: For Healthcare Providers: https://www.Explorys.gov/media/985071/download For Patients: https://www.Explorys.gov/[employer]/364658/download CT ANGIOGRAM HEAD NECKon EXAMINATION: CT EDNA [...] patient motion. There is no airway compromise. [facility], Rad In Fu ji Speechq - 09/22/2019 11:27 AM EDT EXAMINATION: CT ANGIOGRAM HEAD NECK HISTORY: ORDERING SYSTEM PROVIDED HISTORY: Ataxia, stroke suspected, TECHNOLOGIST PROVIDED HISTORY: Illness/Other Reason for exam: Ataxia, stroke suspected Encounter Type: Initial Additional signs and symptoms: Ataxia, stroke suspected ORDERING SYSTEM PROVIDED DIAGNOSIS CODES: I63.9 Acute CVA (cerebrovascular accident) ([facility]) COMPARISON: CT brain 09/22/2019. TECHNIQUE: Initial noncontrast [...] intracranial CTA. 3. No enhancing intracranial process. [employer] Workstation ID: [id number] [facility] 1. No extracranial carotid or vertebral artery stenosis. 2. Unremarkable intracranial CTA. 3. No enhancing intracranial process. [employer] Workstation ID: [id number] [facility] CT HEAD WITHOUT CONTRAST (ST ROKE)on 09-22-2019 [...] performed for further evaluation. Workstation ID: [id number] [facility] 1. No acute intracra nial hemorrhage or large vessel ischemia by noncontrast CT. 2. Chronic paranasal sinus disease. If patient has a focal neurologic deficit or there is clinical suspicion for acute cerebrovascular accident, brain MRI may be performed for further evaluation. Workstation ID: [id number] [facility] EXAMINATION: CT HEAD WITHOUT CONTRAST (STROKE) HISTORY: [...] acute large vessel ischemia by noncontrast CT. [facility] Chem 7on 09-22-2019 Anion gap [Moles/Vol] 11 mmol/L 10 - 2 0 mmol/L [facility] Chloride [Moles/Vol] 108 mmol/L 98 - 10 8 mmol/L [facility] Creatinine [Mass/Vol] 1.16 mg/dL 0.50 - 1.30 [facility] GFR/1.73 sq M predicted among non-blacks MDRD (S/P/Bld) [Vol rate/Area] The eGFR should be used for monitoring renal function only and not for medication dosing. [facility] GFR/1.73 sq M.predicted CKD-EPI (S/P/Bld) [Vol rate/Area] 74 >=60 mL/min/1.7 3 m2 [facility] Glucose [Mass/Vol] 129 mg/dL High 65 - 99 mg/dL [facility] HCO3 [Moles/Vol] 25 mmol/L 21 - 32 mmol/L [facility] Interpretation and review of laboratory results Abnormal [facility] Potassium [Moles/Vol] 4.3 mmol/L 3.5 - 5.1 mmol/L [facility] Sodium [Moles/Vol] 140 mmol/L 135 - 145 mmol/L [facility] Urea nitrogen [Mass/Vol] 24 mg/dL 8 - 25 mg/dL [facility] Urea nitrogen/Creatinine [Mass ratio] 20.7 mg/mg High [facility] ECG 12-LEADon 09-22-2019 Atrial Rate 67 BPM [facility] P [place] 63 degrees [facility] P-R Interval 172 ms [facility] Q-T Interval 404 ms [facility] QRS Duration 86 ms [facility] QTC Calculation (Bezet) 426 ms [facility] R [place] 11 degrees [facility] T [place] 79 degrees [facility] Ventricular Rate 67 BPM [facility] Normal sinus rhythm Low voltage QRS Possible Anterolateral infarct , age undetermined Abnormal ECG ECG Cart Interpretation see physician note for interpretation. Confirmed by Brandy Kc ([id number]) on 09/22/2019 3:33:43 PM [facility] Hemoglobin A1con 09-22-2019 Average glucose Estimated from glycated hemoglobin mass conc (Bld) 137 mg/dL High 68 - 114 mg/dL [facility] HbA1c (Bld) [Mass fraction] 6.4 % High 4 - 5.6 % [facility] Interpretation and review of laboratory results Abnormal [facility] Normal: 4.0% - 5.6% Increased risk for diabetes: 5.7% - 6.4% Diabetes: >= 6.5% Pediatrics: No established reference range Estimated average glucose: 68-114 mg/dL [facility] Metabolic Panelon 09-22-2019 Glucose [Mass/Vol] 126 mg/dL High 65 - 99 mg/dL [facility] Otheron 09-22-2019 Extra Tube Hold for add-ons. [facility] Comment on above: Auto resulted. Interpretation and review of laboratory results Abnormal [facility] POC Glucoseon 09-22-2019 Glucose [Mass/Vol] 121 mg/dL High 65 - 99 mg/dL [facility] Interpretation and review of laboratory results Abnormal [facility] Glucose [Mass/Vol] 164 mg/dL High 65 - 99 mg/dL [facility] Interpretation and review of laboratory results Abnormal [facility] Glucose [Mass/Vol] 105 mg/dL High 65 - 99 mg/dL [facility] Interpretation and review of laboratory results Abnormal [facility] TROPONINon 09-22-2019 Troponin I.cardiac [Mass/Vol] ng/mL <=45 ng/L [facility] Troponin I.cardiac [Mass/Vol] Normal [facility] XR Chest 1 Viewon 09-22-2019 1. Prior median sternotomy with mild cardiomegaly. 2. No acute cardiopulmonary process otherwise suspected. [employer] Workstation ID: [id number] [facility] Interface, Rad In Fu ji Speechq - [...] process otherwise suspected. [employer] Workstation ID: [id number] [facility] EXAMINATION: XR CHES T PA/AP 09/22/2019 7:58 [...] No acute osseous abnormality is otherwise identified. [facility] MONITORED CARDIAC REHAB SESS IONon 03-17-2019 ANGINA N [facility] ENDING HR 103 [facility] EXT - ADMIT TO CR DATE 01/31/2019 [facility] Max HR 118 [facility] Max Mets 4.4 [facility] MODE Treadmill [facility] RESTING HR 96 [facility] SESSION DATE 03/17/2019 [facility] SESSION [facility] SESSION LENGTH 0:45:52 [facility] SESSION LIST Session List: 03/10/2019N 03/12/2019N 03/13/2019N 1.03/17/2019Y Scheduled:4 Attended:1 Compliance:25% [facility] SESSION NUMBER 1 [facility] SESSION THR 100-106 [facility] STATUS Cardiac Phase II [facility] Stress test only, exerciseon 03-13-2019 Angina Index 0 [facility] Baseline BP 124/68 mmHg [facility] Baseline HR 81 bpm [facility] [place] Treadmill Score 6.00 [facility] Estimated workload 7.0 METS [facility] Exercise duration (min) 6 min [facility] Exercise duration (sec) 0 sec [facility] Percent of predicted max HR 65 % [facility] Post peak BP 148/70 mmHg [facility] Post peak HR [address] [facility] [address] Elevation (mm) 0 mm [facility] Target HR 147 bpm [facility] Stress test results reviewed. Agree with below findings. [place] treadmill score not applicable. [facility] XR CHEST AP/PA AND LATon EXAMINATION: XR [...] pneumothorax. There is no acute osseous abnormality. [facility] Bibasilar atelectasi s with mild bronchial thickening. Central vascular prominence without edema. No consolidation, effusion, or pneumothorax. [facility]/ Workstation ID: [id number] [facility], Rad In ji Speech - 02/26/2019 2:44 [...] effusion, or pneumothorax. [facility]/hb Workstation ID: [id number] [facility] Basic Metabolic Panelon 02-12 Anion gap [Moles/Vol] 9 mmol/L Low 10 - 2 0 mmol/L [facility] Calcium [Mass/Vol] 8.6 mg/dL 8.4 - 10. 2 mg/dL [facility] Chloride [Moles/Vol] 105 mmol/L 98 - 10 8 mmol/L [facility] Creatinine [Mass/Vol] 1.10 mg/dL 0.5 - 1.3 mg/dL [facility] GFR/1.73 sq M predicted among non-blacks MDRD (S/P/Bld) [Vol rate/Area] The eGFR should be used for monitoring renal function only and not for medication dosing. [facility] GFR/1.73 sq M.predicted CKD-EPI (S/P/Bld) [Vol rate/Area] 80 >=60 mL/min/1.7 3 m2 [facility] Glucose [Mass/Vol] 104 mg/dL High 65 - 99 mg/dL [facility] HCO3 [Moles/Vol] 28 mmol/L 21 - 32 mmol/L [facility] Interpretation and review of laboratory results Abnormal [facility] Potassium [Moles/Vol] 3.7 mmol/L 3.5 - 5.1 mmol/L [facility] Sodium [Moles/Vol] 138 mmol/L 135 - 145 mmol/L [facility] Urea nitrogen [Mass/Vol] 20 mg/dL 8 - 25 mg/dL [facility] Urea nitrogen/Creatinine [Mass ratio] 18.2 mg/mg [facility] CBC WITH AUTO DIFFERENTIALon 02-25-2019 Basophils (Bld) [#/Vol] 0.14 10*3/uL [facility] Basophils/100 WBC (Bld) 0.9 % [facility] Eosinophils (Bld) [#/Vol] 2.35 10*3/uL High [facility] Eosinophils/100 WBC (Bld) 15.2 % [facility] Erythrocyte distribution width (RBC) [Entitic vol] 14.8 % 11.6 - 14.8 % [facility] Hematocrit (Bld) [Volume fraction] 39.9 % Low 41 - 53 % [facility] Hemoglobin (Bld) [Mass/Vol] 13.0 g/dL Low 13.5 - 17.5 g/dL [facility] Immature granulocytes (Bld) [#/Vol] 0.14 10*3/uL [facility] Immature granulocytes/100 WBC (Bld) 0.90 % [facility] Comment on above: The IG parameter is the percentage of metamyelocytes, myelocytes, and promyelocytes. Interpretation and review of laboratory results Abnormal [facility] Lymphocytes (Bld) [#/Vol] 3.46 10*3/uL [facility] Lymphocytes/100 WBC (Bld) 22.4 % [facility] MCH (RBC) [Entitic mass] 26.5 pg 26 - 34 pg [facility] MCHC (RBC) [Mass/Vol] 32.6 g/dL 31 - 3 7 g/dL [facility] MCV (RBC) [Entitic vol] 81.4 fL 80 - 100 fL [facility] Monocytes (Bld) [#/Vol] 1.39 10*3/uL [facility] Monocytes/100 WBC (Bld) 9.0 % [facility] Neutrophils (Bld) [#/Vol] 7.99 10*3/uL [facility] Neutrophils/100 WBC (Bld) 51.6 % [facility] Nucleated RBC (Bld) [#/Vol] 0.00 10*3/uL [facility] Nucleated RBC/100 WBC (Bld) [Ratio] 0.0 % [facility] Platelet mean volume (Bld) [Entitic vol] 9.3 fL 9 - 15.5 fL [facility] Platelets (Bld) [#/Vol] 406 10*3/uL [facility] RBC (Bld) [#/Vol] 4.90 10*6/uL [facility] WBC (Bld) [#/Vol] 15.47 10*3/uL [facility] CT PULMONARY ARTERIESon 02-12 CT ANGIOGRAPHY CHEST WITH INTRAVENOUS CONTRAST ([id number]) CLINICAL HISTORY: ORDERING SYSTEM PROVIDED Dyspnea. S/P [...] FINDINGS: Postsurgical changes in the anterior midline. [facility] Interface, Rad In Fu ji Speechq - 02/25/2019 10:[address] ANGIOGRAPHY CHEST WITH INTRAVENOUS CONTRAST ([id number]) CLINICAL HISTORY: ORDERING SYSTEM PROVIDED Dyspnea. S/P [...] LEFT lung base; however. Workstation ID: [id number] [facility] - NO evidence of pulmonary embolus is [...] LEFT lung base; however. Workstation ID: [id number] [facility] ECG 12-LEADon 02-25-2019 Atrial Rate 83 BPM [facility] P [place] 55 degrees [facility] P-R Interval 164 ms [facility] Q-T Interval 360 ms [facility] QRS Duration 88 ms [facility] QTC Calculation (Bezet) 423 ms [facility] R [place] 24 degrees [facility] T [place] 98 degrees [facility] Ventricular Rate 83 BPM [facility] Normal sinus rhythm Possible Left atrial enlargement Anteroseptal infarct , age undetermined T wave abnormality, consider lateral ischemia Abnormal ECG ECG Cart Interpretation see physician note for interpretation. Confirmed by Brandy Kc ([id number]) on 02/25/2019 10:46:50 PM [facility] NT Pro BNPon 02-25-2019 Interpretation and review of laboratory results Normal [facility] Natriuretic peptide.B prohormone N-Terminal [Mass/Vol] 227 pg/mL 0 - 300 pg/mL [facility] Pride Study Cut-offs Rule In: < /= 50 Years >450 pg/mL 51 Years - 75 Years >900 pg/mL 76 Years - 99 Years >1800 pg/mL Rule Out: All patients <300 pg/mL [facility] [facility] 02-25-2019 Extra Tube Hold for add-ons. [facility] Comment on above: Auto resulted. PT/INR (if on Coumadin)on INR Coag (PPP) [Relative time] 1.0 {INR} [facility] Interpretation and review of laboratory results Normal [facility] PT Coag (PPP) [Time] 12.5 s [facility] During the induction phase of oral anticoagulation, the INR may not reflect the anticoagulation status of the patient. Therapeutic ranges for INR's are: Most clinical situations: INR 2.0-3.0 Mechanical Prosthetic Valve: INR 2.5-3.5 Critical: INR >5.0 [facility] TROPONINon 02-25-2019 Troponin I.cardiac [Mass/Vol] Normal [facility] Troponin I.cardiac [Mass/Vol] ng/mL <=45 ng/L [facility] XR CHEST AP/PA AND LATon Mild improved aerati on of the left lung base, compared to 02/13/2019. Small residual left basilar pleural effusion. Recent CABG with stable mediastinal contours. ST/[employer] Workstation ID: [id number] [facility] EXAMINATION: XR CHES T AP/PA AND LAT [...] sternotomy and CABG. Mediastinal contours are stable. [facility] Interface, Rad In Fu ji Speechq - [...] stable mediastinal contours. ST/trn Workstation ID: [id number] [facility] XR CHEST AP/PA AND LATon No significant inter tatiana change compared to 02/06/2019. Small bibasilar pleural effusions with left basilar atelectasis. Recent CABG with stable mediastinal contours. ST/trw Workstation ID: [id number] [facility] EXAMINATION: XR CHES T AP/PA AND LAT [...] median sternotomy and CABG. Stable mediastinal contours. [facility] Interface, Rad In Fu ji Speechq - [...] stable mediastinal contours. ST/trw Workstation ID: [id number] [facility] XR CHEST AP/PA AND LATon Slight fluid and atelectasis suggested in the left lung base showing improvement from the prior study. Workstation ID: [id number] [facility] EXAMINATION: XR CHES T AP/PA AND LAT [...] base. Lung markings appear to be unremarkable. [facility], Rad In Fu ji Speechq - 02/06/2019 [...] from the prior study. Workstation ID: [id number] [facility] Basic Metabolic Panelon 01-13 Anion gap [Moles/Vol] 9 mmol/L Low 10 - 2 0 mmol/L [facility] Calcium [Mass/Vol] 8.6 mg/dL 8.4 - 10. 2 mg/dL [facility] Chloride [Moles/Vol] 106 mmol/L 98 - 10 8 mmol/L [facility] Creatinine [Mass/Vol] 1.06 mg/dL 0.5 - 1.3 mg/dL [facility] GFR/1.73 sq M predicted among non-blacks MDRD (S/P/Bld) [Vol rate/Area] The eGFR should be used for monitoring renal function only and not for medication dosing. [facility] GFR/1.73 sq M.predicted CKD-EPI (S/P/Bld) [Vol rate/Area] 83 >=60 mL/min/1.7 3 m2 [facility] Glucose [Mass/Vol] 106 mg/dL High 65 - 99 mg/dL [facility] HCO3 [Moles/Vol] 27 mmol/L 21 - 32 mmol/L [facility] Interpretation and review of laboratory results Abnormal [facility] Potassium [Moles/Vol] 4.0 mmol/L 3.5 - 5.1 mmol/L [facility] Sodium [Moles/Vol] 138 mmol/L 135 - 145 mmol/L [facility] Urea nitrogen [Mass/Vol] 27 mg/dL High 8 - 25 mg/dL [facility] Urea nitrogen/Creatinine [Mass ratio] 25.5 mg/mg High [facility] CBCon 02-04-2019 Erythrocyte distribution width (RBC) [Entitic vol] 14.3 % 11.6 - 14.8 % [facility] Hematocrit (Bld) [Volume fraction] 35.4 % Low 41 - 53 % [facility] Hemoglobin (Bld) [Mass/Vol] 11.5 g/dL Low 13.5 - 17.5 g/dL [facility] Interpretation and review of laboratory results Abnormal [facility] MCH (RBC) [Entitic mass] 27.8 pg 26 - 34 pg [facility] MCHC (RBC) [Mass/Vol] 32.5 g/dL 31 - 3 7 g/dL [facility] MCV (RBC) [Entitic vol] 85.5 fL 80 - 100 fL [facility] Nucleated RBC (Bld) [#/Vol] 0.00 10*3/uL [facility] Nucleated RBC/100 WBC (Bld) [Ratio] 0.0 % [facility] Platelet mean volume (Bld) [Entitic vol] 8.6 fL Low 9 - 15.5 fL [facility] Platelets (Bld) [#/Vol] 514 10*3/uL High [facility] RBC (Bld) [#/Vol] 4.14 10*6/uL Low [facility] WBC (Bld) [#/Vol] 12.92 10*3/uL High [facility] POC Glucoseon 02-04-2019 Glucose [Mass/Vol] 107 mg/dL High 65 - 99 mg/dL [facility] Interpretation and review of laboratory results Abnormal [facility] XR Chest 1 Viewon 02-04-2019 Improving congestive pattern and lung volumes with persistent consolidation and small effusion in the left base. Workstation ID: [id number] [facility] EXAMINATION: XR CHES T PA/AP HISTORY: post-op COMPARISON: Chest radiograph, yesterday at 11:49 a.m. FINDINGS: Cardiomediastinal silhouette is normal. Improved lung volumes and diminishing vascular congestion. Persistent atelectasis and small effusion at the left base. No large right pleural effusion. No acute osseous abnormality. Prior median sternotomy. [facility] Sharda, Keith In Fu ji Speechq - [...] in the left base. Workstation ID: [id number] [facility] Basic Metabolic Panelon 01-13 Anion gap [Moles/Vol] 11 mmol/L 10 - 2 0 mmol/L [facility] Calcium [Mass/Vol] 9.0 mg/dL 8.4 - 10. 2 mg/dL [facility] Chloride [Moles/Vol] 104 mmol/L 98 - 10 8 mmol/L [facility] Creatinine [Mass/Vol] 1.03 mg/dL 0.5 - 1.3 mg/dL [facility] GFR/1.73 sq M predicted among non-blacks MDRD (S/P/Bld) [Vol rate/Area] The eGFR should be used for monitoring renal function only and not for medication dosing. [facility] GFR/1.73 sq M.predicted CKD-EPI (S/P/Bld) [Vol rate/Area] 86 >=60 mL/min/1.7 3 m2 [facility] Glucose [Mass/Vol] 109 mg/dL High 65 - 99 mg/dL [facility] HCO3 [Moles/Vol] 26 mmol/L 21 - 32 mmol/L [facility] Interpretation and review of laboratory results Abnormal [facility] Potassium [Moles/Vol] 4.1 mmol/L 3.5 - 5.1 mmol/L [facility] Sodium [Moles/Vol] 137 mmol/L 135 - 145 mmol/L [facility] Urea nitrogen [Mass/Vol] 26 mg/dL High 8 - 25 mg/dL [facility] Urea nitrogen/Creatinine [Mass ratio] 25.2 mg/mg High [facility] CBCon 02-03-2019 Erythrocyte distribution width (RBC) [Entitic vol] 14.3 % 11.6 - 14.8 % [facility] Hematocrit (Bld) [Volume fraction] 36.8 % Low 41 - 53 % [facility] Hemoglobin (Bld) [Mass/Vol] 12.1 g/dL Low 13.5 - 17.5 g/dL [facility] Interpretation and review of laboratory results Abnormal [facility] MCH (RBC) [Entitic mass] 27.9 pg 26 - 34 pg [facility] MCHC (RBC) [Mass/Vol] 32.9 g/dL 31 - 3 7 g/dL [facility] MCV (RBC) [Entitic vol] 84.8 fL 80 - 100 fL [facility] Nucleated RBC (Bld) [#/Vol] 0.00 10*3/uL [facility] Nucleated RBC/100 WBC (Bld) [Ratio] 0.0 % [facility] Platelet mean volume (Bld) [Entitic vol] 8.6 fL Low 9 - 15.5 fL [facility] Platelets (Bld) [#/Vol] 525 10*3/uL High [facility] RBC (Bld) [#/Vol] 4.34 10*6/uL Low [facility] ealth WBC (Bld) [#/Vol] 14.25 10*3/uL [facility] POC Glucoseon 02-03-2019 Glucose [Mass/Vol] 117 mg/dL High 65 - 99 mg/dL [facility] Interpretation and review of laboratory results Abnormal [facility] Glucose [Mass/Vol] 111 mg/dL High 65 - 99 mg/dL [facility] Interpretation and review of laboratory results Abnormal [facility] VR Thoracentesis Lefton -2 1. Small left pleura l effusion 2. Successful ultrasound-guided left thoracentesis. Approximately 250 mL of blood-tinged fluid was removed from the left pleural space. A sample of fluid was placed in the custody of the patient's nurse for potential laboratory analysis to be ordered by the primary service. Workstation ID: [id number] [facility] EXAMINATION: ULTRASOUND-GUIDED LEFT THORACENTESIS HISTORY: Recent coronary artery bypass grafting. Left pleural effusion. BUNGHOLE BORER(S): Gilmer Zelaya MD COMPARISON: Chest radiograph dated [...] 1% lidocaine. Under ultrasound guidance, a 5 [place] slip catheter and introducer needle were advanced [...] and the patient tolerated the procedure well. [facility] Interface, Rad In Fu ji Speechq - 02/03/2019 10:12 PM EST EXAMINATION: ULTRASOUND-GUIDED LEFT THORACENTESIS HISTORY: Recent coronary artery bypass grafting. Left pleural effusion. BUNGHOLE BORER(S): Gilmer Zelaya MD COMPARISON: Chest radiograph dated [...] 1% lidocaine. Under ultrasound guidance, a 5 [place] For[place]va slip catheter and introducer needle were advanced [...] by the primary service. Workstation ID: [id number] [facility] XR Chest 1 Viewon 02-03-2019 No pneumothorax stat us post left thoracentesis. RPS/trw Workstation ID: [id number] [facility] EXAMINATION: XR CHES T PA/AP 02/03/2019 11:53 [...] small left pleural effusion and strandy atelectasis. [facility] Interface, Rad In Fu ji Speechq - [...] post left thoracentesis. RPS/trw Workstation ID: [id number] [facility] Interface, Rad In Fu ji Speechq - [...] 3. Mild cardiomegaly. RSR/hb Workstation ID: [id number] [facility] EXAMINATION: XR CHES T PA/AP 02/03/2019 5:07 [...] is similar. The right lung is clear. [facility] 1. Low lung volumes. 2. Left basal effusion with atelectasis and/or infiltrate similar. 3. Mild cardiomegaly. RSR/hb Workstation ID: [id number] [facility] CBCon 02-02-2019 Erythrocyte distribution width (RBC) [Entitic vol] 14.4 % 11.6 - 14.8 % [facility] Hematocrit (Bld) [Volume fraction] 34.8 % Low 41 - 53 % [facility] Hemoglobin (Bld) [Mass/Vol] 11.4 g/dL Low 13.5 - 17.5 g/dL [facility] Interpretation and review of laboratory results Abnormal [facility] MCH (RBC) [Entitic mass] 27.9 pg 26 - 34 pg [facility] MCHC (RBC) [Mass/Vol] 32.8 g/dL 31 - 3 7 g/dL [facility] MCV (RBC) [Entitic vol] 85.3 fL 80 - 100 fL [facility] Nucleated RBC (Bld) [#/Vol] 0.02 10*3/uL High [facility] Nucleated RBC/100 WBC (Bld) [Ratio] 0.1 % [facility] Platelet mean volume (Bld) [Entitic vol] 8.9 fL Low 9 - 15.5 fL [facility] Platelets (Bld) [#/Vol] 555 10*3/uL High [facility] RBC (Bld) [#/Vol] 4.08 10*6/uL [facility] ealth WBC (Bld) [#/Vol] 14.43 10*3/uL [facility] CT PULMONARY ARTERIESon 12-2 1. Owph-ig-jithqplr effusion with mild atelectasis in the left lung base. Remaining lungs show hyperaeration with mild chronic changes. 2. No evidence for acute mediastinal process or pulmonary embolism, it should be noted that there was limited opacification of the pulmonary arterial tree. 3. No evidence for lymphadenopathy. 4. Chronic and postsurgical changes noted. Workstation ID: [id number] [facility] EXAMINATION: CT PULM ONARY ARTERIES HISTORY: ORDERING [...] good aeration. There is mild atelectasis and sboz-nl-desbrocq effusion in the left lung base. Slight chronic changes are noted off the hilar and infrahilar regions. No suspicious nodule is noted. Bone density is unremarkable. No bony lesions are noted throughout. No advanced degenerative changes are noted diffusely. No obvious bony lesions are noted. The subcutaneous tissues are unremarkable. [facility], Rad In Fu ji Speechq - 02/02/2019 [...] good aeration. There is mild atelectasis and nsjs-xa-hzzlhzfs effusion in the left lung base. Slight chronic changes are noted off the hilar and infrahilar regions. No suspicious nodule is noted. Bone density is unremarkable. No bony lesions are noted throughout. No advanced degenerative changes are noted diffusely. No obvious bony lesions are noted. The subcutaneous tissues are unremarkable. IMPRESSION: 1. Xbgf-me-yygpsttm effusion with mild atelectasis in the left lung base. Remaining lungs show hyperaeration with mild chronic changes. 2. No evidence for acute mediastinal process or pulmonary embolism, it should be noted that there was limited opacification of the pulmonary arterial tree. 3. No evidence for lymphadenopathy. 4. Chronic and postsurgical changes noted. Workstation ID: [id number] [facility] POC ARTERIAL BLOOD GAS PANEL -AKIBrennan Srini Wayne 02-02-2019 Alveolar-arterial oxygen Partial pressure difference 28.2 mm Hg [facility] Base excess Calc (Bld) [Moles/Vol] 3.6 mmol/L High [facility] Breath rate setting Ventilator synchronized intermittent mandatory 0 [facility] CO2 (Bld) [Partial pressure] 38.6 mm[Hg] [facility] HCO3 (Bld) [Moles/Vol] 27.6 mmol/L High 22 - 26 mmol/L [facility] Hematocrit (BldA) [Volume fraction] 36.8 % Low 41 - 53 % [facility] Hemoglobin (Bld) [Mass/Vol] 12.0 g/dL Low 13.5 - 18 g/dL [facility] Inhaled oxygen concentration 21 % [facility] Interpretation and review of laboratory results Abnormal [facility] Oxygen (Bld) [Partial pressure] 72 mm[Hg] Low [facility] PEEP Respiratory system 0 [facility] pH (Bld) 7.46 [pH] High [facility] SaO2% (BldA) [Mass fraction] 95.1 % 92 - 99 % [facility] Specimen source Nom (Unsp spec) Radial, left [facility] Tidal volume setting Ventilator 0 [facility] POC Glucoseon 02-02-2019 Glucose [Mass/Vol] 93 mg/dL 65 - 99 mg/dL [facility] Interpretation and review of laboratory results Normal [facility] XR CHEST AP/PA AND LATon 1. Interval developm ent of left basilar consolidation with left pleural effusion. 2. Trace right pleural effusion. [employer] Workstation ID: [id number] [facility] EXAMINATION: TWO-VIE W CHEST HISTORY: ORDERING SYSTEM [...] normal. No acute osseous lesions are seen. [facility] Interface, Rad In Fu ji Speechq - [...] pleural effusion. 2. Trace right pleural effusion. [employer] Workstation ID: [id number] [facility] XR CHEST AP/PA AND LATon Pulmonary venous congestion with small pleural effusions. Recent CABG with stable mediastinal contours. ST/ Workstation ID: [id number] [facility] EXAMINATION: XR CHES T AP/PA AND LAT [...] median sternotomy and CABG. Stable mediastinal contours. [facility] Interface, Rad In Luis Fernando ji Speechq [...] stable mediastinal contours. / Workstation ID: [id number] [facility] Basic Metabolic Panelon 01-12 Anion gap [Moles/Vol] 11 mmol/L 10 - 2 0 mmol/L [facility] Calcium [Mass/Vol] 8.6 mg/dL 8.4 - 10. 2 mg/dL [facility] Chloride [Moles/Vol] 105 mmol/L 98 - 10 8 mmol/L [facility] Creatinine [Mass/Vol] 1.08 mg/dL 0.5 - 1.3 mg/dL [facility] GFR/1.73 sq M.predicted CKD-EPI (S/P/Bld) [Vol rate/Area] 81 >=60 mL/min/1.7 3 m2 [facility] Glucose [Mass/Vol] 101 mg/dL High 65 - 99 mg/dL [facility] HCO3 [Moles/Vol] 26 mmol/L 21 - 32 mmol/L [facility] Interpretation and review of laboratory results Abnormal [facility] Potassium [Moles/Vol] 4.2 mmol/L 3.5 - 5.1 mmol/L [facility] Sodium [Moles/Vol] 138 mmol/L 135 - 145 mmol/L [facility] Urea nitrogen [Mass/Vol] 29 mg/dL High 8 - 25 mg/dL [facility] Urea nitrogen/Creatinine [Mass ratio] 26.9 mg/mg High [facility] The eGFR should be u sed for monitoring renal function only and not for medication dosing. [facility] CBCon 01-29-2019 Erythrocyte distribution width (RBC) [Entitic vol] 14.2 % 11.6 - 14.8 % [facility] Hematocrit (Bld) [Volume fraction] 33.7 % Low 41 - 53 % [facility] Hemoglobin (Bld) [Mass/Vol] 10.9 g/dL Low 13.5 - 17.5 g/dL [facility] Interpretation and review of laboratory results Abnormal [facility] MCH (RBC) [Entitic mass] 27.9 pg 26 - 34 pg [facility] MCHC (RBC) [Mass/Vol] 32.3 g/dL 31 - 3 7 g/dL [facility] MCV (RBC) [Entitic vol] 86.2 fL 80 - 100 fL [facility] Nucleated RBC (Bld) [#/Vol] 0.00 10*3/uL [facility] Nucleated RBC/100 WBC (Bld) [Ratio] 0.0 % [facility] Platelet mean volume (Bld) [Entitic vol] 9.7 fL 9 - 15.5 fL [facility] Platelets (Bld) [#/Vol] 277 10*3/uL [facility] RBC (Bld) [#/Vol] 3.91 10*6/uL Low [facility] ealth WBC (Bld) [#/Vol] 9.70 10*3/uL [facility]alth ECG 12-LEADon 01-29-2019 Atrial Rate 84 BPM [facility] P [place] 51 degrees [facility] P-R Interval 168 ms [facility] Q-T Interval 344 ms [facility] QRS Duration 92 ms [facility] QTC Calculation (Bezet) 406 ms [facility] R [place] 17 degrees [facility] T [place] 66 degrees [facility] Ventricular Rate 84 BPM [facility] Normal sinus rhythm Anterolateral infarct , age undetermined Abnormal ECG Confirmed by Torie Au MD ([id number]) on 01/29/2019 1:02:22 PM [facility] Magnesium Levelon 01-29-2019 Interpretation and review of laboratory results Normal [facility] Magnesium [Mass/Vol] 2.3 mg/dL 1.6 - 2 .4 mg/dL [facility] POC Glucoseon 01-29-2019 Glucose [Mass/Vol] 102 mg/dL High 65 - 99 mg/dL [facility] Interpretation and review of laboratory results Abnormal [facility] Glucose [Mass/Vol] 104 mg/dL High 65 - 99 mg/dL [facility] Interpretation and review of laboratory results Abnormal [facility] TROPONINon 01-29-2019 Troponin I.cardiac [Mass/Vol] ng/mL <=45 ng/L [facility] Troponin I.cardiac [Mass/Vol] Normal [facility] XR Chest 1 Viewon 01-29-2019 Interval removal of the right internal jugular catheter. The cardiopulmonary structures are stable. 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 TECHNIQUE: AP upright portable chest. FINDINGS: The lungs are clear and well expanded. Hemidiaphragms are smooth. Heart size is normal. There are mediastinal surgical changes with sternal wires present. The right internal jugular catheter has been removed. quality assurance monitor leads are noted upon the chest wall. IMPRESSION: Interval removal of the right internal jugular catheter. The cardiopulmonary structures are stable. 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 TECHNIQUE: AP upright portable chest. FINDINGS: The lungs are clear and well expanded. Hemidiaphragms are smooth. Heart size is normal. There are mediastinal surgical changes with sternal wires present. The right internal jugular catheter has been removed. quality assurance monitor leads are noted upon the chest wall. [facility] Basic Metabolic Panelon 01-12 Anion gap [Moles/Vol] 9 mmol/L Low 10 - 2 0 mmol/L [facility] Calcium [Mass/Vol] 8.2 mg/dL Low 8.4 - 10. 2 mg/dL [facility] Chloride [Moles/Vol] 105 mmol/L 98 - 10 8 mmol/L [facility] Creatinine [Mass/Vol] 1.04 mg/dL 0.5 - 1.3 mg/dL [facility] GFR/1.73 sq M.predicted CKD-EPI (S/P/Bld) [Vol rate/Area] 85 >=60 mL/min/1.7 3 m2 [facility] Glucose [Mass/Vol] 105 mg/dL High 65 - 99 mg/dL [facility] HCO3 [Moles/Vol] 26 mmol/L 21 - 32 mmol/L [facility] Interpretation and review of laboratory results Abnormal [facility] Potassium [Moles/Vol] 4.1 mmol/L 3.5 - 5.1 mmol/L [facility] Sodium [Moles/Vol] 136 mmol/L 135 - 145 mmol/L [facility] Urea nitrogen [Mass/Vol] 31 mg/dL High 8 - 25 mg/dL [facility] Urea nitrogen/Creatinine [Mass ratio] 29.8 mg/mg High [facility] The eGFR should be u sed for monitoring renal function only and not for medication dosing. [facility] CBCon 01-28-2019 Erythrocyte distribution width (RBC) [Entitic vol] 14.2 % 11.6 - 14.8 % [facility] Hematocrit (Bld) [Volume fraction] 30.5 % Low 41 - 53 % [facility] Hemoglobin (Bld) [Mass/Vol] 10.1 g/dL Low 13.5 - 17.5 g/dL [facility] Interpretation and review of laboratory results Abnormal [facility] MCH (RBC) [Entitic mass] 28.2 pg 26 - 34 pg [facility] MCHC (RBC) [Mass/Vol] 33.1 g/dL 31 - 3 7 g/dL [facility] MCV (RBC) [Entitic vol] 85.2 fL 80 - 100 fL [facility] Nucleated RBC (Bld) [#/Vol] 0.00 10*3/uL [facility] Nucleated RBC/100 WBC (Bld) [Ratio] 0.0 % [facility] Platelet mean volume (Bld) [Entitic vol] 9.8 fL 9 - 15.5 fL [facility] Platelets (Bld) [#/Vol] 212 10*3/uL [facility] RBC (Bld) [#/Vol] 3.58 10*6/uL Low [facility] ealth WBC (Bld) [#/Vol] 10.07 10*3/uL [facility] Magnesium Levelon 01-28-2019 Interpretation and review of laboratory results Normal [facility] Magnesium [Mass/Vol] 2.4 mg/dL 1.6 - 2 .4 mg/dL [facility] POC Glucoseon 01-28-2019 Glucose [Mass/Vol] 113 mg/dL High 65 - 99 mg/dL [facility] Interpretation and review of laboratory results Abnormal [facility] System Glucose [Mass/Vol] 114 mg/dL High 65 - 99 mg/dL [facility] Interpretation and review of laboratory results Abnormal [facility] Glucose [Mass/Vol] 93 mg/dL 65 - 99 mg/dL [facility] Interpretation and review of laboratory results Normal [facility] Glucose [Mass/Vol] 110 mg/dL High 65 - 99 mg/dL [facility] Interpretation and review of laboratory results Abnormal [facility] Glucose [Mass/Vol] 115 mg/dL High 65 - 99 mg/dL [facility] Interpretation and review of laboratory results Abnormal [facility] XR Chest 1 Viewon 01-28-2019 Cardiomegaly. No pulmonary edema. Linear scarring or atelectasis at the left lung apex and left lung base, as before. [facility] Workstation ID: [id number] [facility] Interface, Rad In Luis Fernando yi Speechq [...] complication, without long-term current use of insulin ([facility]) I25.10 Coronary artery disease, angina presence unspecified, unspecified vessel or lesion type, unspecified whether [place] or transplanted heart COMPARISON: 01/27/2019 and 01/26/2019. [...] apex and left lung base, as before. [facility] Workstation ID: [id number] [facility] EXAMINATION: XR CHES T PA/AP HISTORY: ORDERING SYSTEM PROVIDED HISTORY: post open heart surgery, TECHNOLOGIST PROVIDED HISTORY: Illness/Other Reason for exam: S/P CABG Cancer History: u Surgery, RadiationHistory: yes Encounter Type: Subsequent/Follow-up Additional signs and symptoms: NA ORDERING SYSTEM PROVIDED DIAGNOSIS CODES: R07.89 Chest pain, atypical E11.9 Type 2 diabetes mellitus without complication, without long-term current use of insulin ([facility]) I25.10 Coronary artery disease, angina presence unspecified, unspecified vessel or lesion type, unspecified whether [place] or transplanted heart COMPARISON: 01/27/2019 and 01/26/2019. FINDINGS: Right IJ central venous catheter with tip projected over the mid SVC. Prior median sternotomy and CABG. Cardiomegaly. No pulmonary edema, pleural effusion or pneumothorax. Persistent linear atelectatic changes at the left lung apex and left lung base. Osseous structures are intact. [facility] AMYLASEon 01-27-2019 Amylase [Catalytic activity/Vol] 28 U/L 25 - 115 U/L [facility] Interpretation and review of laboratory results Normal [facility] Basic Metabolic Panelon 01-12 Anion gap [Moles/Vol] 16 mmol/L 10 - 2 0 mmol/L [facility] Calcium [Mass/Vol] 8.6 mg/dL 8.4 - 10. 2 mg/dL [facility] Chloride [Moles/Vol] 97 mmol/L Low 98 - 10 8 mmol/L [facility] Creatinine [Mass/Vol] 3.10 mg/dL High 0.5 - 1.3 mg/dL [facility] GFR/1.73 sq M.predicted CKD-EPI (S/P/Bld) [Vol rate/Area] 23 Low >=60 mL/min/1.7 3 m2 [facility] Glucose [Mass/Vol] 123 mg/dL High 65 - 99 mg/dL [facility] HCO3 [Moles/Vol] 23 mmol/L 21 - 32 mmol/L [facility] Interpretation and review of laboratory results Abnormal [facility] Potassium [Moles/Vol] 4.5 mmol/L 3.5 - 5.1 mmol/L [facility] Sodium [Moles/Vol] 131 mmol/L Low 135 - 145 mmol/L [facility] Urea nitrogen [Mass/Vol] 43 mg/dL High 8 - 25 mg/dL [facility] Urea nitrogen/Creatinine [Mass ratio] 13.9 mg/mg [facility] The eGFR should be u sed for monitoring renal function only and not for medication dosing. [facility] CBCon 01-27-2019 Erythrocyte distribution width (RBC) [Entitic vol] 14.0 % 11.6 - 14.8 % [facility] Hematocrit (Bld) [Volume fraction] 33.9 % Low 41 - 53 % [facility] Hemoglobin (Bld) [Mass/Vol] 11.2 g/dL Low 13.5 - 17.5 g/dL [facility] Interpretation and review of laboratory results Abnormal [facility] MCH (RBC) [Entitic mass] 28.3 pg 26 - 34 pg [facility] MCHC (RBC) [Mass/Vol] 33.0 g/dL 31 - 3 7 g/dL [facility] MCV (RBC) [Entitic vol] 85.6 fL 80 - 100 fL [facility] Nucleated RBC (Bld) [#/Vol] 0.00 10*3/uL [facility] Nucleated RBC/100 WBC (Bld) [Ratio] 0.0 % [facility] Platelet mean volume (Bld) [Entitic vol] 10.2 fL 9 - 15.5 fL [facility] Platelets (Bld) [#/Vol] 194 10*3/uL [facility] RBC (Bld) [#/Vol] 3.96 10*6/uL Low [facility] ealt WBC (Bld) [#/Vol] 16.03 10*3/uL High [facility] ECG 12-LEADon 01-27-2019 Atrial Rate 105 BPM [facility] P [place] 50 degrees [facility] P-R Interval 144 ms [facility] Q-T Interval 314 ms [facility] QRS Duration 86 ms [facility] QTC Calculation (Bezet) 415 ms [facility] R [place] 14 degrees [facility] T [place] 52 degrees [facility] Ventricular Rate 105 BPM [facility] Sinus tachycardia Possible Left atrial enlargement Low voltage QRS Cannot rule out Anteroseptal infarct , age undetermined Lateral injury pattern ACUTE HI / STEMI Abnormal ECG Confirmed by Kelsea WARREN, Torie ([id number]) on 01/27/2019 2:33:32 PM [facility] ECHOCARDIOGRAM LIMITED WITH CONTRASTon 01-27-2019 Interface, Rad In [employer] - 01/27/2019 8:22 AM EST [address] [address] [place] [address] ----- ECHOCARDIOGRAPHY REPORT - [facility] ----- Name: FERNANDO HELTON Age: 48 years Date: 01/27/2019 Hospital #: [id number] : 1970 Room: [address] [place] [address] #: [id number] Sex: M Tech: Giovana Hale Ordering Physician: [id number] KRISTIN MACHUCA Height: 66.00 in Sys BP: 92 WALKER cc: , Weight: 250.00 Mira BP: 48 Reading Physician: [id number] TORIE TERRELL Rhythm: Normal sinus AU/ rhythm Electronically Signed [id number] TORIE TERRELL BSA: 2.20 m by: AU [...] 75 Female) LA Index (BP) TAPSE LAESV FIRMWARE ARCHITECT NOTES: Limited subcostal views due to wound dressings. Definity (if used): 2ml Final IMPRESSION: Limited echo for repeat assessment of LV function [address] [address] [place] [address] ----- ECHOCARDIOGRAPHY REPORT - [facility] ----- Name: FERNANDO HELTON Age: 48 years Date: 01/27/2019 Hospital #: [id number] : 1970 Room: [address] [place] [address] #: [id number] Sex: M Tech: Giovana Hale Ordering Physician: [id number] KRISTIN MACHUCA Height: 66.00 in Sys BP: 92 WALKER cc: , Weight: 250.00 Mira BP: 48 Reading Physician: [id number] TORIE TERRELL Rhythm: Normal sinus KELSEA/ rhythm Electronically Signed [id number] TORIE TERRELL BSA: 2.20 m by: KELSEA [...] 75 Female) LA Index (BP) TAPSE LAESV FIRMWARE ARCHITECT NOTES: Limited subcostal views due to wound dressings. Definity (if used): 2ml Final [facility] Limited echo for rep eat assessment of LV function [facility] Hepatic Function Panelon Albumin [Mass/Vol] 2.6 g/dL Low 3.2 - 5.2 g/dL [facility] ALP [Catalytic activity/Vol] 41 U/L 40 - 150 U/L [facility] ALT [Catalytic activity/Vol] 35 U/L 14 - 65 U/L [facility] AST [Catalytic activity/Vol] 39 U/L 0 - 45 U/L [facility] Bilirubin [Mass/Vol] 0.8 mg/dL 0 - 1.3 mg/dL [facility] Bilirubin.conjugated [Mass/Vol] 0.2 mg/dL 0 - 0.4 mg/dL [facility] Protein [Mass/Vol] 6.1 g/dL 6 - 8 g/dL [facility] alth Lipaseon 01-27-2019 Lipase [Catalytic activity/Vol] 57 U/L Low 73 - 393 U/L [facility] Magnesium Levelon 01-27-2019 Interpretation and review of laboratory results Normal [facility] Magnesium [Mass/Vol] 2.4 mg/dL 1.6 - 2 .4 mg/dL [facility] Otheron 01-27-2019 Interpretation and review of laboratory results Abnormal [facility] POC Glucoseon 01-27-2019 Glucose [Mass/Vol] 113 mg/dL High 65 - 99 mg/dL [facility] Interpretation and review of laboratory results Abnormal [facility] Glucose [Mass/Vol] 111 mg/dL High 65 - 99 mg/dL [facility] Interpretation and review of laboratory results Abnormal [facility] Glucose [Mass/Vol] 117 mg/dL High 65 - 99 mg/dL [facility] Interpretation and review of laboratory results Abnormal [facility] TROPONINon 01-27-2019 Troponin I.cardiac [Mass/Vol] Normal [facility] Troponin I.cardiac [Mass/Vol] 28 ng/L <=45 [facility] XR ABDOMEN 1 VIEWon 01-28-20 19 Interface, [...] complication, without long-term current use of insulin ([facility]) I25.10 Coronary artery disease, angina presence unspecified, unspecified vessel or lesion type, unspecified whether [place] or transplanted heart COMPARISON: CT abdomen and pelvis 05/01/2015. FINDINGS: Two images were utilized to encompass the abdomen and pelvis. There is mild gaseous distention of the colon with gas extending into the rectum. No definite small bowel dilatation. No large collection of free intraperitoneal air. Postsurgical findings median sternotomy. IMPRESSION: Nonobstructive bowel gas pattern with mild colonic distention. [facility]/ Workstation ID: [id number] [facility] EXAMINATION: XR ABDO MEN /KUB/FLAT PLATE/1 VIEW 01/27/2019 7:56 am HISTORY: ORDERING SYSTEM PROVIDED HISTORY: ABD distension, TECHNOLOGIST PROVIDED HISTORY: Illness/Other Reason for exam: ABD distension Cancer History: u Surgery, RadiationHistory: yes Encounter Type: Initial Additional signs and symptoms: ABD [facility] ORDERING SYSTEM PROVIDED DIAGNOSIS CODES: R07.89 Chest pain, atypical E11.9 Type 2 diabetes mellitus without complication, without long-term current use of insulin ([facility]) I25.10 Coronary artery disease, angina presence unspecified, unspecified vessel or lesion type, unspecified whether [place] or transplanted heart COMPARISON: CT abdomen and pelvis 05/01/2015. FINDINGS: Two images were utilized to encompass the abdomen and pelvis. There is mild gaseous distention of the colon with gas extending into the rectum. No definite small bowel dilatation. No large collection of free intraperitoneal air. Postsurgical findings median sternotomy. [facility] Nonobstructive bowel gas pattern with mild colonic distention. [facility] Workstation ID: [id number] [facility] XR Chest 1 Viewon 01-27-2019 Status post sternoto my. Mild residual left apical and left base atelectatic findings. [facility] Workstation ID: [id number] [facility] Interface, Rad In Fu ji Speechq - [...] left apical and left base atelectatic findings. [facility]/[employer] Workstation ID: [id number] [facility] EXAMINATION: XR CHES T PA/AP HISTORY: post [...] No major consolidation or edema is seen. [facility] Basic Metabolic Panelon 01-12 Anion gap [Moles/Vol] 13 mmol/L 10 - 2 0 mmol/L [facility] Calcium [Mass/Vol] 8.3 mg/dL Low 8.4 - 10. 2 mg/dL [facility] Chloride [Moles/Vol] 102 mmol/L 98 - 10 8 mmol/L [facility] Creatinine [Mass/Vol] 1.03 mg/dL 0.5 - 1.3 mg/dL [facility] GFR/1.73 sq M.predicted CKD-EPI (S/P/Bld) [Vol rate/Area] 86 >=60 mL/min/1.7 3 m2 [facility] Glucose [Mass/Vol] 116 mg/dL High 65 - 99 mg/dL [facility] HCO3 [Moles/Vol] 24 mmol/L 21 - 32 mmol/L [facility] Interpretation and review of laboratory results Abnormal [facility] Potassium [Moles/Vol] 4.3 mmol/L 3.5 - 5.1 mmol/L [facility] Sodium [Moles/Vol] 135 mmol/L 135 - 145 mmol/L [facility] Urea nitrogen [Mass/Vol] 21 mg/dL 8 - 25 mg/dL [facility] Urea nitrogen/Creatinine [Mass ratio] 20.4 mg/mg High [facility] The eGFR should be u sed for monitoring renal function only and not for medication dosing. [facility] CBCon 01-26-2019 Erythrocyte distribution width (RBC) [Entitic vol] 14.1 % 11.6 - 14.8 % [facility] Hematocrit (Bld) [Volume fraction] 39.4 % Low 41 - 53 % [facility] Hemoglobin (Bld) [Mass/Vol] 13.0 g/dL Low 13.5 - 17.5 g/dL [facility] Interpretation and review of laboratory results Abnormal [facility] MCH (RBC) [Entitic mass] 27.8 pg 26 - 34 pg [facility] MCHC (RBC) [Mass/Vol] 33.0 g/dL 31 - 3 7 g/dL [facility] MCV (RBC) [Entitic vol] 84.4 fL 80 - 100 fL [facility] Nucleated RBC (Bld) [#/Vol] 0.00 10*3/uL [facility] Nucleated RBC/100 WBC (Bld) [Ratio] 0.0 % [facility] Platelet mean volume (Bld) [Entitic vol] 10.2 fL 9 - 15.5 fL [facility] Platelets (Bld) [#/Vol] 183 10*3/uL [facility] RBC (Bld) [#/Vol] 4.67 10*6/uL [facility] ealth WBC (Bld) [#/Vol] 14.20 10*3/uL High [facility] Magnesium Levelon 01-26-2019 Interpretation and review of laboratory results Normal [facility] Magnesium [Mass/Vol] 2.2 mg/dL 1.6 - 2 .4 mg/dL [facility] POC Glucoseon 01-26-2019 Glucose [Mass/Vol] 128 mg/dL High 65 - 99 mg/dL [facility] Interpretation and review of laboratory results Abnormal [facility] Glucose [Mass/Vol] 112 mg/dL High 65 - 99 mg/dL [facility] Interpretation and review of laboratory results Abnormal [facility] Glucose [Mass/Vol] 111 mg/dL High 65 - 99 mg/dL [facility] Interpretation and review of laboratory results Abnormal [facility] Glucose [Mass/Vol] 117 mg/dL High 65 - 99 mg/dL [facility] Interpretation and review of laboratory results Abnormal [facility] Glucose [Mass/Vol] 110 mg/dL High 65 - 99 mg/dL [facility] Interpretation and review of laboratory results Abnormal [facility] Urine Aerobic Cultureon 01-12 Bacteria identified Aer cx Nom (Unsp spec) No Growth (<1,000 CFU/mL) [facility] oHeal XR Chest 1 Viewon [...] complication, without long-term current use of insulin ([facility]) I25.10 Coronary artery disease, angina presence unspecified, unspecified vessel or lesion type, unspecified whether [place] or transplanted heart COMPARISON: 01/26/2019 FINDINGS: One-view [...] pulmonary venous congestion. ST/hb Workstation ID: [id number] [facility] EXAMINATION: XR CHES T PA/AP HISTORY: ORDERING [...] unspecified vessel or lesion type, unspecified whether [place] or transplanted heart COMPARISON: 01/26/2019 FINDINGS: One-view chest x-ray. Left basilar chest tube has been removed. Stable position of right central venous catheter. Low lung volumes. No pneumothorax. Mild pulmonary venous congestion. No pleural effusions. Left upper lobe subsegmental linear atelectasis. Prominent heart size. Postoperative changes of median sternotomy and CABG. Stable mediastinal contours. [facility] Interval left basila r chest tube removal. No pneumothorax. Recent CABG. Stable mediastinal contours. Mild pulmonary venous congestion. ST/hb Workstation ID: [id number] [facility] Interval removal of right jugular [place] catheter. Sheath remains in place. No pneumothorax. Mild pulmonary venous congestion. Recent CABG postoperative changes. ST/dnb Workstation ID: [id number] [facility] Interface, Rad In Luis Fernando Garciaq - [...] unspecified vessel or lesion type, unspecified whether [place] or transplanted heart COMPARISON: 01/25/2019. FINDINGS: One-view chest x-ray. Interval removal of right jugular [place] catheter. Right jugular sheath remains in place and, tip projects over the superior vena cava. Stable position of left basilar chest tube. Low lung volumes. No pneumothorax. Mild pulmonary venous congestion. Left upper lobe subsegmental linear atelectasis. No significant pleural effusions. Cardiomegaly. Postoperative changes of median sternotomy and CABG. Improved prominence of the mediastinum. IMPRESSION: Interval removal of right jugular [place] catheter. Sheath remains in place. No pneumothorax. Mild pulmonary venous congestion. Recent CABG postoperative changes. ST/dnb Workstation ID: [id number] [facility] EXAMINATION: XR CHES T PA/AP HISTORY: ORDERING SYSTEM PROVIDED HISTORY: post open heart surgery, TECHNOLOGIST PROVIDED HISTORY: Illness/Other Reason for exam: post cabg Cancer History: u Surgery, RadiationHistory: yes Encounter Type: Ongoing Additional signs and symptoms: . ORDERING SYSTEM PROVIDED DIAGNOSIS CODES: R07.89 Chest pain, atypical E11.9 Type 2 diabetes mellitus without complication, without long-term current use of insulin ([facility]) I25.10 Coronary artery disease, angina presence unspecified, unspecified vessel or lesion type, unspecified whether [place] or transplanted heart COMPARISON: 01/25/2019. FINDINGS: One-view chest x-ray. Interval removal of right jugular [place] catheter. Right jugular sheath remains in place and, tip projects over the superior vena cava. Stable position of left basilar chest tube. Low lung volumes. No pneumothorax. Mild pulmonary venous congestion. Left upper lobe subsegmental linear atelectasis. No significant pleural effusions. Cardiomegaly. Postoperative changes of median sternotomy and CABG. Improved prominence of the mediastinum. [facility] Basic Metabolic Panelon 01-12 Anion gap [Moles/Vol] 13 mmol/L 10 - 2 0 mmol/L [facility] Calcium [Mass/Vol] 8.2 mg/dL Low 8.4 - 10. 2 mg/dL [facility] Chloride [Moles/Vol] 100 mmol/L 98 - 10 8 mmol/L [facility] Creatinine [Mass/Vol] 1.20 mg/dL 0.5 - 1.3 mg/dL [facility] GFR/1.73 sq M.predicted CKD-EPI (S/P/Bld) [Vol rate/Area] 72 >=60 mL/min/1.7 3 m2 [facility] Glucose [Mass/Vol] 141 mg/dL High 65 - 99 mg/dL [facility] HCO3 [Moles/Vol] 24 mmol/L 21 - 32 mmol/L [facility] Interpretation and review of laboratory results Abnormal [facility] Potassium [Moles/Vol] 4.5 mmol/L 3.5 - 5.1 mmol/L [facility] Sodium [Moles/Vol] 132 mmol/L Low 135 - 145 mmol/L [facility] Urea nitrogen [Mass/Vol] 22 mg/dL 8 - 25 mg/dL [facility] Urea nitrogen/Creatinine [Mass ratio] 18.3 mg/mg [facility] The eGFR should be u sed for monitoring renal function only and not for medication dosing. [facility] CBCon 01-25-2019 Erythrocyte distribution width (RBC) [Entitic vol] 14.0 % 11.6 - 14.8 % [facility] Hematocrit (Bld) [Volume fraction] 38.5 % Low 41 - 53 % [facility] Hemoglobin (Bld) [Mass/Vol] 12.9 g/dL Low 13.5 - 17.5 g/dL [facility] Interpretation and review of laboratory results Abnormal [facility] MCH (RBC) [Entitic mass] 28.0 pg 26 - 34 pg [facility] MCHC (RBC) [Mass/Vol] 33.5 g/dL 31 - 3 7 g/dL [facility] MCV (RBC) [Entitic vol] 83.5 fL 80 - 100 fL [facility] Nucleated RBC (Bld) [#/Vol] 0.00 10*3/uL [facility] Nucleated RBC/100 WBC (Bld) [Ratio] 0.0 % [facility] Platelet mean volume (Bld) [Entitic vol] 9.9 fL 9 - 15.5 fL [facility] Platelets (Bld) [#/Vol] 211 10*3/uL [facility] RBC (Bld) [#/Vol] 4.61 10*6/uL [facility] ealth WBC (Bld) [#/Vol] 15.83 10*3/uL High [facility] Magnesium Levelon 01-25-2019 Interpretation and review of laboratory results Normal [facility] Magnesium [Mass/Vol] 2.0 mg/dL 1.6 - 2 .4 mg/dL [facility] POC ARTERIAL BLOOD GAS PANEL -PUL - [facility] 01-25-2019 Alveolar-arterial oxygen Partial pressure difference 41.2 mm Hg [facility] Base excess Calc (Bld) [Moles/Vol] 1.0 mmol/L [facility] Breath rate setting Ventilator synchronized intermittent mandatory 0 [facility] h CO2 (Bld) [Partial pressure] 36.3 mm[Hg] [facility] HCO3 (Bld) [Moles/Vol] 24.9 mmol/L 22 - 26 mmol/L [facility] Hematocrit (BldA) [Volume fraction] 44.2 % 41 - 53 % [facility] Hemoglobin (Bld) [Mass/Vol] 14.4 g/dL 13.5 - 18 g/dL [facility] Inhaled oxygen concentration 21 % [facility] Interpretation and review of laboratory results Abnormal [facility] Oxygen (Bld) [Partial pressure] 58 mm[Hg] Low [facility] pH (Bld) 7.44 [pH] [facility] Result Notification pt on room air [facility] SaO2% (BldA) [Mass fraction] 91.2 % Low 92 - 99 % [facility] Tidal volume setting Ventilator 0 [facility] POC Glucoseon 01-25-2019 Glucose [Mass/Vol] 125 mg/dL High 65 - 99 mg/dL [facility] Interpretation and review of laboratory results Abnormal [facility] Glucose [Mass/Vol] 109 mg/dL High 65 - 99 mg/dL [facility] Interpretation and review of laboratory results Abnormal [facility] Glucose [Mass/Vol] 129 mg/dL High 65 - 99 mg/dL [facility] Interpretation and review of laboratory results Abnormal [facility] Glucose [Mass/Vol] 119 mg/dL High 65 - 99 mg/dL [facility] Interpretation and review of laboratory results Abnormal [facility] Glucose [Mass/Vol] 117 mg/dL High 65 - 99 mg/dL [facility] Interpretation and review of laboratory results Abnormal [facility] Glucose [Mass/Vol] 127 mg/dL High 65 - 99 mg/dL [facility] Interpretation and review of laboratory results Abnormal [facility] Glucose [Mass/Vol] 132 mg/dL High 65 - 99 mg/dL [facility] Interpretation and review of laboratory results Abnormal [facility] Glucose [Mass/Vol] 140 mg/dL High 65 - 99 mg/dL [facility] Interpretation and review of laboratory results Abnormal [facility] Glucose [Mass/Vol] 129 mg/dL High 65 - 99 mg/dL [facility] Interpretation and review of laboratory results Abnormal [facility] XR Chest 1 Viewon 01-25-2019 EXAMINATION: XR [...] complication, without long-term current use of insulin ([facility]) I25.10 Coronary artery disease, angina presence unspecified, unspecified vessel or lesion type, unspecified whether [place] or transplanted heart COMPARISON: 01/24/2019 FINDINGS: Endotracheal tube and NG tube have been removed. [place] catheter tip is in the right main pulmonary artery. Heart is mildly enlarged with a left ventricular contour. Vascularity is unremarkable. Right lung is unremarkable. There is been slight improvement in atelectasis in the left upper lobe. There is been interval development of a small amount of atelectasis versus early infiltrate in the left lung base. No pneumothorax is identified. [facility] Interface, Rad In Fu ji Speechq - [...] unspecified vessel or lesion type, unspecified whether [place] or transplanted heart COMPARISON: 01/24/2019 FINDINGS: Endotracheal tube and NG tube have been removed. [place] catheter tip is in the right main [...] and endotracheal tube have been removed. 2. [place] catheter tip is in the right main pulmonary artery. 3. Improvement in the atelectasis in the left upper lobe. 4. Interval development of atelectasis versus early infiltrate in the left lung base. Workstation ID: [id number] [facility] 1. NG tube and endotracheal tube have been removed. 2. [place] catheter tip is in the right main pulmonary artery. 3. Improvement in the atelectasis in the left upper lobe. 4. Interval development of atelectasis versus early infiltrate in the left lung base. Workstation ID: [id number] [facility] APTTon 01-24-2019 aPTT Coag (Bld) [Time] 28 s [facility] Therapeutic range fo r APTT's is 68 - 104 seconds [facility] aPTT Coag (Bld) [Time] 27 [facility] The[facility] range fo r APTT's is 68 - 104 seconds [facility] aPTT Coag (Bld) [Time] 59 s High [facility] Interpretation and review of laboratory results Abnormal [facility] Therapeutic range fo r APTT's is 68 - 104 seconds [facility] Basic Metabolic Panelon 01-12 Anion gap [Moles/Vol] 11 mmol/L 10 - 2 0 mmol/L [facility] Calcium [Mass/Vol] 8.6 mg/dL 8.4 - 10. 2 mg/dL [facility] Chloride [Moles/Vol] 100 mmol/L 98 - 10 8 mmol/L [facility] Creatinine [Mass/Vol] 1.25 mg/dL 0.5 - 1.3 mg/dL [facility] GFR/1.73 sq M.predicted CKD-EPI (S/P/Bld) [Vol rate/Area] 68 >=60 mL/min/1.7 3 m2 [facility] Glucose [Mass/Vol] 122 mg/dL High 65 - 99 mg/dL [facility] HCO3 [Moles/Vol] 25 mmol/L 21 - 32 mmol/L [facility] Interpretation and review of laboratory results Abnormal [facility] Potassium [Moles/Vol] 5.0 mmol/L 3.5 - 5.1 mmol/L [facility] Sodium [Moles/Vol] 131 mmol/L Low 135 - 145 mmol/L [facility] Urea nitrogen [Mass/Vol] 30 mg/dL High 8 - 25 mg/dL [facility] Urea nitrogen/Creatinine [Mass ratio] 24.0 mg/mg High [facility] The eGFR should be u sed for monitoring renal function only and not for medication dosing. [facility] Anion gap [Moles/Vol] 14 mmol/L 10 - 2 0 mmol/L [facility] Calcium [Mass/Vol] 8.2 mg/dL Low 8.4 - 10. 2 mg/dL [facility] Chloride [Moles/Vol] 100 mmol/L 98 - 10 8 mmol/L [facility] Creatinine [Mass/Vol] 1.31 mg/dL High 0.5 - 1.3 mg/dL [facility] GFR/1.73 sq M.predicted CKD-EPI (S/P/Bld) [Vol rate/Area] 64 >=60 mL/min/1.7 3 m2 [facility] Glucose [Mass/Vol] 130 mg/dL High 65 - 99 mg/dL [facility] HCO3 [Moles/Vol] 24 mmol/L 21 - 32 mmol/L [facility] Interpretation and review of laboratory results Abnormal [facility] Potassium [Moles/Vol] 3.7 mmol/L 3.5 - 5.1 mmol/L [facility] Sodium [Moles/Vol] 134 mmol/L Low 135 - 145 mmol/L [facility] Urea nitrogen [Mass/Vol] 26 mg/dL High 8 - 25 mg/dL [facility] Urea nitrogen/Creatinine [Mass ratio] 19.8 mg/mg [facility] The eGFR should be u sed for monitoring renal function only and not for medication dosing. [facility] Anion gap [Moles/Vol] 13 mmol/L 10 - 2 0 mmol/L [facility] Calcium [Mass/Vol] 9.0 mg/dL 8.4 - 10. 2 mg/dL [facility] Chloride [Moles/Vol] 98 mmol/L 98 - 10 8 mmol/L [facility] Creatinine [Mass/Vol] 1.19 mg/dL 0.5 - 1.3 mg/dL [facility] GFR/1.73 sq M.predicted CKD-EPI (S/P/Bld) [Vol rate/Area] 72 >=60 mL/min/1.7 3 m2 [facility] Glucose [Mass/Vol] 148 mg/dL High 65 - 99 mg/dL [facility] HCO3 [Moles/Vol] 27 mmol/L 21 - 32 mmol/L [facility] Interpretation and review of laboratory results Abnormal [facility] Potassium [Moles/Vol] 3.6 mmol/L 3.5 - 5.1 mmol/L [facility] Sodium [Moles/Vol] 134 mmol/L Low 135 - 145 mmol/L [facility] Urea nitrogen [Mass/Vol] 26 mg/dL High 8 - 25 mg/dL [facility] Urea nitrogen/Creatinine [Mass ratio] 21.8 mg/mg High [facility] The eGFR should be u sed for monitoring renal function only and not for medication dosing. [facility] CBCon 01-24-2019 Erythrocyte distribution width (RBC) [Entitic vol] 13.7 % 11.6 - 14.8 % [facility] Hematocrit (Bld) [Volume fraction] 36.8 % Low 41 - 53 % [facility] Hemoglobin (Bld) [Mass/Vol] 12.4 g/dL Low 13.5 - 17.5 g/dL [facility] Interpretation and review of laboratory results Abnormal [facility] MCH (RBC) [Entitic mass] 27.9 pg 26 - 34 pg [facility] MCHC (RBC) [Mass/Vol] 33.7 g/dL 31 - 3 7 g/dL [facility] MCV (RBC) [Entitic vol] 82.9 fL 80 - 100 fL [facility] Nucleated RBC (Bld) [#/Vol] 0.00 10*3/uL [facility] Nucleated RBC/100 WBC (Bld) [Ratio] 0.0 % [facility] Platelet mean volume (Bld) [Entitic vol] 10.1 fL 9 - 15.5 fL [facility] Platelets (Bld) [#/Vol] 203 10*3/uL [facility] RBC (Bld) [#/Vol] 4.44 10*6/uL Low [facility] WBC (Bld) [#/Vol] 12.07 10*3/uL High [facility] CBC WITH AUTO DIFFERENTIALon 01-24-2019 Basophils (Bld) [#/Vol] 0.05 10*3/uL [facility] Basophils/100 WBC (Bld) 0.3 % [facility]ld[facility] [#/Vol] 0.11 10*3/uL [facility] Eosinophils/100 WBC (Bld) 0.7 % [facility] Erythrocyte distribution width (RBC) [Entitic vol] 13.9 % 11.6 - 14.8 % [facility] Hematocrit (Bld) [Volume fraction] 37.5 % Low 41 - 53 % [facility] Hemoglobin (Bld) [Mass/Vol] 12.5 g/dL Low 13.5 - 17.5 g/dL [facility] Immature granulocytes (Bld) [#/Vol] 0.16 10*3/uL [facility] Immature granulocytes/100 WBC (Bld) 1.00 % [facility] Comment on above: The IG parameter is the percentage of metamyelocytes, myelocytes, and promyelocytes. Interpretation and review of laboratory results Abnormal [facility] Lymphocytes (Bld) [#/Vol] 1.58 10*3/uL [facility] Lymphocytes/100 WBC (Bld) 9.7 % [facility] MCH (RBC) [Entitic mass] 28.0 pg 26 - 34 pg [facility] MCHC (RBC) [Mass/Vol] 33.3 g/dL 31 - 3 7 g/dL [facility] MCV (RBC) [Entitic vol] 84.1 fL 80 - 100 fL [facility] Monocytes (Bld) [#/Vol] 1.47 10*3/uL High [facility] Monocytes/100 WBC (Bld) 9.1 % [facility] Neutrophils (Bld) [#/Vol] 12.85 10*3/uL High [facility] Neutrophils/100 WBC (Bld) 79.2 % [facility] Nucleated RBC (Bld) [#/Vol] 0.00 10*3/uL [facility] Nucleated RBC/100 WBC (Bld) [Ratio] 0.0 % [facility] Platelet mean volume (Bld) [Entitic vol] 10.1 fL 9 - 15.5 fL [facility] Platelets (Bld) [#/Vol] 227 10*3/uL [facility] RBC (Bld) [#/Vol] 4.46 10*6/uL Low [facility] WBC (Bld) [#/Vol] 16.22 10*3/uL High [facility] Basophils (Bld) [#/Vol] 0.07 10*3/uL [facility] Basophils/100 WBC (Bld) 0.5 % [facility] Eosinophils (Bld) [#/Vol] 0.61 10*3/uL High [facility] Eosinophils/100 WBC (Bld) 4.0 % [facility] Erythrocyte distribution width (RBC) [Entitic vol] 13.8 % 11.6 - 14.8 % [facility] Hematocrit (Bld) [Volume fraction] 36.5 % Low 41 - 53 % [facility] Hemoglobin (Bld) [Mass/Vol] 12.2 g/dL Low 13.5 - 17.5 g/dL [facility] Immature granulocytes (Bld) [#/Vol] 0.22 10*3/uL [facility] Immature granulocytes/100 WBC (Bld) 1.40 % [facility] Comment on above: The IG parameter is the percentage of metamyelocytes, myelocytes, and promyelocytes. Interpretation and review of laboratory results Abnormal [facility] Lymphocytes (Bld) [#/Vol] 2.53 10*3/uL [facility] Lymphocytes/100 WBC (Bld) 16.6 % [facility] MCH (RBC) [Entitic mass] 27.9 pg 26 - 34 pg [facility] MCHC (RBC) [Mass/Vol] 33.4 g/dL 31 - 3 7 g/dL [facility] MCV (RBC) [Entitic vol] 83.3 fL 80 - 100 fL [facility] Monocytes (Bld) [#/Vol] 1.19 10*3/uL High [facility] Monocytes/100 WBC (Bld) 7.8 % [facility] Neutrophils (Bld) [#/Vol] 10.66 10*3/uL High [facility] Neutrophils/100 WBC (Bld) 69.7 % [facility] Nucleated RBC (Bld) [#/Vol] 0.00 10*3/uL [facility] Nucleated RBC/100 WBC (Bld) [Ratio] 0.0 % [facility] Platelet mean volume (Bld) [Entitic vol] 10.1 fL 9 - 15.5 fL [facility] Platelets (Bld) [#/Vol] 201 10*3/uL [facility] RBC (Bld) [#/Vol] 4.38 10*6/uL Low [facility] WBC (Bld) [#/Vol] 15.28 10*3/uL High [facility] Basophils (Bld) [#/Vol] 0.06 10*3/uL [facility] Basophils/100 WBC (Bld) 0.5 % [facility] Eosinophils (Bld) [#/Vol] 0.74 10*3/uL High [facility] Eosinophils/100 WBC (Bld) 6.8 % [facility] Erythrocyte distribution width (RBC) [Entitic vol] 13.8 % 11.6 - 14.8 % [facility] Hematocrit (Bld) [Volume fraction] 42.3 % 41 - 53 % [facility] Hemoglobin (Bld) [Mass/Vol] 14.0 g/dL 13.5 - 17.5 g/dL [facility] Immature granulocytes (Bld) [#/Vol] 0.12 10*3/uL [facility] Immature granulocytes/100 WBC (Bld) 1.10 % [facility] Comment on above: The IG parameter is the percentage of metamyelocytes, myelocytes, and promyelocytes. Interpretation and review of laboratory results Abnormal [facility] Lymphocytes (Bld) [#/Vol] 3.01 10*3/uL [facility] Lymphocytes/100 WBC (Bld) 27.6 % [facility] MCH (RBC) [Entitic mass] 27.7 pg 26 - 34 pg [facility] MCHC (RBC) [Mass/Vol] 33.1 g/dL 31 - 3 7 g/dL [facility] MCV (RBC) [Entitic vol] 83.6 fL 80 - 100 fL [facility] Monocytes (Bld) [#/Vol] 0.95 10*3/uL High [facility] Monocytes/100 WBC (Bld) 8.7 % [facility] Neutrophils (Bld) [#/Vol] 6.04 10*3/uL [facility] Neutrophils/100 WBC (Bld) 55.3 % [facility] Nucleated RBC (Bld) [#/Vol] 0.00 10*3/uL [facility] Nucleated RBC/100 WBC (Bld) [Ratio] 0.0 % [facility] Platelet mean volume (Bld) [Entitic vol] 10.1 fL 9 - 15.5 fL [facility] Platelets (Bld) [#/Vol] 230 10*3/uL [facility] RBC (Bld) [#/Vol] 5.06 10*6/uL [facility] WBC (Bld) [#/Vol] 10.92 10*3/uL [facility] Calcium, Ionizedon 9 Calcium.ionized [Mass/Vol] 4.6 mg/dL 4.5 - 5.3 mg/dL [facility] Interpretation and review of laboratory results Normal [facility] Calcium.ionized [Mass/Vol] 4.5 mg/dL 4.5 - 5.3 mg/dL [facility] Interpretation and review of laboratory results Normal [facility] Fibrinogenon 01-24-2019 Fibrinogen Coag (PPP) [Mass/Vol] 309 mg/dL 224 - 483 mg/dL [facility] Fibrinogen Coag (PPP) [Mass/Vol] 316 mg/dL 224 - 483 mg/dL [facility] Hematologyon 01-24-2019 pH (Bld) 7.44 [pH] [facility] ABO and Rh group Nom (Bld) O Neg [facility] ABO and Rh group Nom (Bld) 9500 [facility] Magnesium Levelon 01-24-2019 Interpretation and review of laboratory results Normal [facility] Magnesium [Mass/Vol] 2.0 mg/dL 1.6 - 2 .4 mg/dL [facility] Interpretation and review of laboratory results Normal [facility] Magnesium [Mass/Vol] 2.0 mg/dL 1.6 - 2 .4 mg/dL [facility] Metabolic Panelon 01-24-2019 Potassium [Moles/Vol] 3.8 mmol/L 3.5 - 5.1 mmol/L [facility] Otheron 01-24-2019 Interpretation and review of laboratory results Abnormal [facility] Interpretation and review of laboratory results Normal [facility] Interpretation and review of laboratory results Normal [facility] Interpretation and review of laboratory results Abnormal [facility] SaO2% (BldA) [Mass fraction] 100.0 % High 92 - 99 % [facility] Cross Match Compatible [facility] Product Code [id number] [facility] Product Code [id number] [facility] Product ID Red Blood Cells [facility] Status Info Released [facility] POC ABG SURG - RALSon 2018 Base Excess, Arterial 4 High [facility] Base Excess, Arterial 1 [facility] Base Excess, Arterial 3 High [facility] Calcium.ionized (Bld) [Mass/Vol] 4.7 mg/dL 4.5 - 5.3 mg/dL [facility] Calcium.ionized (Bld) [Mass/Vol] 4.9 mg/dL 4.5 - 5.3 mg/dL [facility] Calcium.ionized (Bld) [Mass/Vol] 4.6 mg/dL 4.5 - 5.3 mg/dL [facility] CO2 (Bld) [Partial pressure] 38.1 mm[Hg] [facility] CO2 (Bld) [Partial pressure] 53.2 mm[Hg] High [facility] CO2 (Bld) [Partial pressure] 40.5 mm[Hg] [facility] Glucose [Mass/Vol] 168 mg/dL High 65 - 99 mg/dL [facility] Glucose [Mass/Vol] 131 mg/dL High 65 - 99 mg/dL [facility] Glucose [Mass/Vol] 169 mg/dL High 65 - 99 mg/dL [facility] HCO3 (Bld) [Moles/Vol] 25.7 mmol/L 22 - 26 mmol/L [facility] HCO3 (Bld) [Moles/Vol] 27.3 mmol/L High 22 - 26 mmol/L [facility] HCO3 (Bld) [Moles/Vol] 30.4 mmol/L High 22 - 26 mmol/L [facility] Hematocrit (Bld) [Volume fraction] 39 % Low 41 - 53 % [facility] Hematocrit (Bld) [Volume fraction] 37 % Low 41 - 53 % [facility] Hematocrit (Bld) [Volume fraction] 40 % Low 41 - 53 % [facility] Hemoglobin (Bld) [Mass/Vol] 13.6 g/dL 13.5 - 17.5 g/dL [facility] Hemoglobin (Bld) [Mass/Vol] 12.6 g/dL Low 13.5 - 17.5 g/dL [facility] Hemoglobin (Bld) [Mass/Vol] 13.3 g/dL Low 13.5 - 17.5 g/dL [facility] Oxygen (Bld) [Partial pressure] 364 mm[Hg] High [facility] Oxygen (Bld) [Partial pressure] 432 mm[Hg] High [facility] Oxygen (Bld) [Partial pressure] 344 mm[Hg] High [facility] pH (Bld) 7.37 [pH] [facility] Sodium [Moles/Vol] 132 mmol/L Low 135 - 145 mmol/L [facility] Sodium [Moles/Vol] 134 mmol/L Low 135 - 145 mmol/L [facility] Sodium [Moles/Vol] 131 mmol/L Low 135 - 145 mmol/L [facility] POC ARTERIAL BLOOD GAS PANEL [facility] 01-24-2019 Alveolar-arterial oxygen Partial pressure difference 89.1 mm Hg [facility] Base excess Calc (Bld) [Moles/Vol] 1.1 mmol/L [facility] Breath rate setting Ventilator synchronized intermittent mandatory 0 [facility] h CO2 (Bld) [Partial pressure] 45.4 mm[Hg] High [facility] HCO3 (Bld) [Moles/Vol] 26.7 mmol/L High 22 - 26 mmol/L [facility] Hematocrit (BldA) [Volume fraction] 39.6 % Low 41 - 53 % [facility] Hemoglobin (Bld) [Mass/Vol] 12.9 g/dL Low 13.5 - 18 g/dL [facility] Inhaled oxygen concentration 40 % [facility] Interpretation and review of laboratory results Abnormal [facility] Oxygen (Bld) [Partial pressure] 132 mm[Hg] High [facility] PEEP Respiratory system 5 [facility] pH (Bld) 7.38 [pH] [facility] SaO2% (BldA) [Mass fraction] 98.7 % 92 - 99 % [facility] Tidal volume setting Ventilator 0 [facility] Alveolar-arterial oxygen Partial pressure difference 127.3 mm Hg [facility] Base excess Calc (Bld) [Moles/Vol] 1.0 mmol/L [facility] Breath rate setting Ventilator synchronized intermittent mandatory [facility] CO2 (Bld) [Partial pressure] 41.7 mm[Hg] [facility] HCO3 (Bld) [Moles/Vol] 26.0 mmol/L 22 - 26 mmol/L [facility] Hematocrit (BldA) [Volume fraction] 38.5 % Low 41 - 53 % [facility] Hemoglobin (Bld) [Mass/Vol] 12.5 g/dL Low 13.5 - 18 g/dL [facility] Inhaled oxygen concentration 40 % [facility] Interpretation and review of laboratory results Abnormal [facility] Oxygen (Bld) [Partial pressure] 98 mm[Hg] [facility] PEEP Respiratory system 5 [facility] pH (Bld) 7.40 [pH] [facility] SaO2% (BldA) [Mass fraction] 97.7 % 92 - 99 % [facility] Tidal volume setting Ventilator 800 [facility] Alveolar-arterial oxygen Partial pressure difference 307.3 mm Hg [facility] Base excess Calc (Bld) [Moles/Vol] 2.0 mmol/L [facility] Breath rate setting Ventilator synchronized intermittent mandatory 0 [facility] CO2 (Bld) [Partial pressure] 39.5 mm[Hg] [facility] HCO3 (Bld) [Moles/Vol] 26.4 mmol/L High 22 - 26 mmol/L [facility] Hematocrit (BldA) [Volume fraction] 39.5 % Low 41 - 53 % [facility] Hemoglobin (Bld) [Mass/Vol] 12.9 g/dL Low 13.5 - 18 g/dL [facility] Inhaled oxygen concentration 70 % [facility] Interpretation and review of laboratory results Abnormal [facility] Oxygen (Bld) [Partial pressure] 126 mm[Hg] High [facility] PEEP Respiratory system 5 [facility] pH (Bld) 7.43 [pH] [facility] SaO2% (BldA) [Mass fraction] 98.7 % 92 - 99 % [facility] Specimen source Nom (Unsp spec) Not specified [facility] Tidal volume setting Ventilator 800 [facility] POC Glucoseon 01-24-2019 Glucose [Mass/Vol] 120 mg/dL High 65 - 99 mg/dL [facility] Interpretation and review of laboratory results Abnormal [facility] Glucose [Mass/Vol] 132 mg/dL High 65 - 99 mg/dL [facility] Glucose [Mass/Vol] 119 mg/dL High 65 - 99 mg/dL [facility] Glucose [Mass/Vol] 122 mg/dL High 65 - 99 mg/dL [facility] Interpretation and review of laboratory results Abnormal [facility] Glucose [Mass/Vol] 134 mg/dL High 65 - 99 mg/dL [facility] Interpretation and review of laboratory results Abnormal [facility] Glucose [Mass/Vol] 131 mg/dL High 65 - 99 mg/dL [facility] Interpretation and review of laboratory results Abnormal [facility] Glucose [Mass/Vol] 114 mg/dL High 65 - 99 mg/dL [facility] Glucose [Mass/Vol] 121 mg/dL High 65 - 99 mg/dL [facility] Interpretation and review of laboratory results Abnormal [facility] Glucose [Mass/Vol] 137 mg/dL High 65 - 99 mg/dL [facility] Interpretation and review of laboratory results Abnormal [facility] Glucose [Mass/Vol] 149 mg/dL High 65 - 99 mg/dL [facility] Interpretation and review of laboratory results Abnormal [facility] Glucose [Mass/Vol] 169 mg/dL High 65 - 99 mg/dL [facility] Interpretation and review of laboratory results Abnormal [facility] Glucose [Mass/Vol] 108 mg/dL High 65 - 99 mg/dL [facility] Interpretation and review of laboratory results Abnormal [facility] PREPARE RBCon 01-24-2019 Product Code [id number] [facility] Unit Number [id number] [facility] Unit Number [id number] [facility] Unit Number [id number] [facility] Unit Number [id number] [facility] Unit Number [id number] [facility] Unit Number [id number] [facility] PT/INRon 01-24-2019 INR Coag (PPP) [Relative time] 1.0 {INR} [facility] Interpretation and review of laboratory results Normal [facility] PT Coag (PPP) [Time] 13.3 s [facility] During the induction phase of oral anticoagulation, the INR may not reflect the anticoagulation status of the patient. Therapeutic ranges for INR's are: Most clinical situations: INR 2.0-3.0 Mechanical Prosthetic Valve: INR 2.5-3.5 Critical: INR >5.0 [facility] INR Coag (PPP) [Relative time] 1.1 {INR} [facility] PT Coag (PPP) [Time] 13.5 s [facility] During the induction phase of oral anticoagulation, the INR may not reflect the anticoagulation status of the patient. Therapeutic ranges for INR's are: Most clinical situations: INR 2.0-3.0 Mechanical Prosthetic Valve: INR 2.5-3.5 Critical: INR >5.0 [facility] INR Coag (PPP) [Relative time] 1.1 {INR} [facility] PT Coag (PPP) [Time] 13.4 s [facility] During the induction phase of oral anticoagulation, the INR may not reflect the anticoagulation status of the patient. Therapeutic ranges for INR's are: Most clinical situations: INR 2.0-3.0 Mechanical Prosthetic Valve: INR 2.5-3.5 Critical: INR >5.0 [facility] Type and Screenon 01-24-2019 ABO and Rh group Nom (Bld) O Negative [facility] Blood group antibody screen Ql Negative [facility] Specimen Expires 01/27/2019 23:59 EST [facility] XR Chest 1 Viewon 01-24-2019 1. No acute cardiopulmonary disease. 2. Normal heart size with evidence of prior coronary arterial stenting. 3. No acute osseous abnormality. [employer] Workstation ID: [id number] [facility] Interface, Rad In Fu ji Speechq - 01/24/2019 5:04 PM EST EXAMINATION: 1 VIEW XR CHEST PA/AP, 01/24/2019 COMPARISON: Chest, 01/21/2019. HISTORY: Dx: R07.89 (Chest pain, atypical) Injury/Trauma or Illness?:Illness/Other How long have you had these symptoms (acute/chronic)?:Unknown pre-op IMPRESSION: 1. No acute cardiopulmonary disease. 2. Normal heart size with evidence of prior coronary arterial stenting. 3. No acute osseous abnormality. [employer] Workstation ID: [id number] [facility] EXAMINATION: 1 VIEW XR CHEST PA/AP, 01/24/2019 COMPARISON: Chest, 01/21/2019. HISTORY: Dx: R07.89 (Chest pain, atypical) Injury/Trauma or Illness?:Illness/Other How long have you had these symptoms (acute/chronic)?:Unknown pre-op [facility] 1. There is a right mainstem intubation that has been appropriately retracted on follow-up chest radiograph performed just following this exam. 2. Nasogastric tube is seen descending into the stomach although the tip is not included for visualization. Central mediastinal or left chest tube is in place. 3. Right internal jugular [place] line in place with tip in the main pulmonary artery. 4. Lung volumes are slightly diminished with some crowding of bronchopulmonary vasculature. Some discoid atelectasis in the left upper lobe suspected. 5. Stable heart size with evidence of coronary arterial stenting in CABG. Kohort[employer]/lab Workstation ID: [id number] [facility] Interface, Rad In Luis Fernando yi Speechq [...] is in place. 3. Right internal jugular [place] line in place with tip in the main pulmonary artery. 4. Lung volumes are slightly diminished with some crowding of bronchopulmonary vasculature. Some discoid atelectasis in the left upper lobe suspected. 5. Stable heart size with evidence of coronary arterial stenting in CABG. [employer]ort[employer]/lab Workstation ID: [id number] [facility] EXAMINATION: 1-VIEW XR CHEST PA/AP 01/24/2019 AT 10:13 AM COMPARISON: Chest radiograph performed later in the day at 10:20 a.m. HISTORY: Dx: R07.89 (Chest pain, atypical). Injury/Trauma or Illness?: Illness/Other. How long have you had these symptoms (acute/chronic)?: Unknown. ET tube placement. [facility] EXAMINATION: 1 VIEW XR CHEST PA/AP, 01/24/2019 AT 10:20 A.M. COMPARISON: Chest radiograph performed earlier the same day at 10:13 a.m. HISTORY: Dx: R07.89 (Chest pain, atypical) Injury/Trauma or Illness?:Illness/Other How long have you had these symptoms (acute/chronic)?:Unknown reposition OG [facility] 1. Endotracheal tube has been retracted and is probably located at the level of thoracic inlet. 2. Orogastric tube is again seen extending into the stomach although the tip is not included for visualization. Central mediastinal or left chest tube and right internal jugular [place] line remain in stable position. 3. Lung volumes is slightly diminished with some discoid atelectasis slightly progressed in the left lung apex since the prior exam. No pneumothorax. 4. Stable heart size with evidence of coronary arterial stenting and new CABG. GJT/trn Workstation ID: [id number] [facility] Interface, Rad In Luis Fernando yi Speechq [...] left chest tube and right internal jugular [place] line remain in stable position. 3. Lung volumes is slightly diminished with some discoid atelectasis slightly progressed in the left lung apex since the prior exam. No pneumothorax. 4. Stable heart size with evidence of coronary arterial stenting and new CABG. KohortT/trn Workstation ID: [id number] [facility] APTTon 01-23-2019 aPTT Coag (Bld) [Time] 79 s High [facility] Interpretation and review of laboratory results Abnormal [facility] Therapeutic range fo r APTT's is 68 - 104 seconds [facility] Basic Metabolic Panelon 01-12 Anion gap [Moles/Vol] 11 mmol/L 10 - 2 0 mmol/L [facility] Calcium [Mass/Vol] 9.3 mg/dL 8.4 - 10. 2 mg/dL [facility] Chloride [Moles/Vol] 99 mmol/L 98 - 10 8 mmol/L [facility] Creatinine [Mass/Vol] 1.22 mg/dL 0.5 - 1.3 mg/dL [facility] GFR/1.73 sq M.predicted CKD-EPI (S/P/Bld) [Vol rate/Area] 70 >=60 mL/min/1.7 3 m2 [facility] Glucose [Mass/Vol] 124 mg/dL High 65 - 99 mg/dL [facility] HCO3 [Moles/Vol] 27 mmol/L 21 - 32 mmol/L [facility] Interpretation and review of laboratory results Abnormal [facility] Potassium [Moles/Vol] 4.0 mmol/L 3.5 - 5.1 mmol/L [facility] Sodium [Moles/Vol] 133 mmol/L Low 135 - 145 mmol/L [facility] Urea nitrogen [Mass/Vol] 25 mg/dL 8 - 25 mg/dL [facility] Urea nitrogen/Creatinine [Mass ratio] 20.5 mg/mg High [facility] The eGFR should be u sed for monitoring renal function only and not for medication dosing. [facility] CBC WITH AUTO DIFFERENTIALon 01-23-2019 Basophils (Bld) [#/Vol] 0.08 10*3/uL [facility] Basophils/100 WBC (Bld) 0.7 % [facility] Eosinophils (Bld) [#/Vol] 0.80 10*3/uL High [facility] Eosinophils/100 WBC (Bld) 6.6 % [facility] Erythrocyte distribution width (RBC) [Entitic vol] 14.1 % 11.6 - 14.8 % [facility] Hematocrit (Bld) [Volume fraction] 42.4 % 41 - 53 % [facility] Hemoglobin (Bld) [Mass/Vol] 14.3 g/dL 13.5 - 17.5 g/dL [facility] Immature granulocytes (Bld) [#/Vol] 0.16 10*3/uL [facility] Immature granulocytes/100 WBC (Bld) 1.30 % [facility] Comment on above: The IG parameter is the percentage of metamyelocytes, myelocytes, and promyelocytes. Interpretation and review of laboratory results Abnormal [facility] Lymphocytes (Bld) [#/Vol] 3.27 10*3/uL [facility] Lymphocytes/100 WBC (Bld) 26.9 % [facility] MCH (RBC) [Entitic mass] 28.4 pg 26 - 34 pg [facility] MCHC (RBC) [Mass/Vol] 33.7 g/dL 31 - 3 7 g/dL [facility] MCV (RBC) [Entitic vol] 84.1 fL 80 - 100 fL [facility] Monocytes (Bld) [#/Vol] 1.03 10*3/uL High [facility] Monocytes/100 WBC (Bld) 8.5 % [facility] Neutrophils (Bld) [#/Vol] 6.83 10*3/uL [facility] Neutrophils/100 WBC (Bld) 56.0 % [facility] Nucleated RBC (Bld) [#/Vol] 0.00 10*3/uL [facility] Nucleated RBC/100 WBC (Bld) [Ratio] 0.0 % [facility] Platelet mean volume (Bld) [Entitic vol] 10.3 fL 9 - 15.5 fL [facility] Platelets (Bld) [#/Vol] 239 10*3/uL [facility] RBC (Bld) [#/Vol] 5.04 10*6/uL [facility] WBC (Bld) [#/Vol] 12.17 10*3/uL [facility] Complete PFT Dr. Javi high 01-23-2019 DLCO %Pre Predicted 71 % [facility] DLCO Pre 21.5 mL/mmHg/mi n [facility] DLCO Predicted 30.1 mL/mmHg/mi n [facility] DLCO/VA %Pre Predicted 103 % [facility] DLCO/VA Pre 4.09 mL/mmHg/mi n/L [facility] DLCO/VA Predicted 3.97 mL/mmHg/mi n/L [facility] ERV Pre 0.71 Liters [facility] FEV1 %Change 3 % [facility] FEV1 %Post Predicted 81 % [facility] FEV1 %Pre Predicted 79 % [facility] FEV1 Post 2.88 Liters [facility] FEV1 Pre 2.80 Liters [facility] FEV1 Predicted 3.54 Liters [facility] FEV1/FVC %Change 3 % [facility] FEV1/FVC %Post Predicted 90 % [facility] FEV1/FVC %Pre Predicted 87 % [facility] FEV1/FVC Post 70 % [facility] FEV1/FVC Pre 68 % [facility] FEV1/FVC Predicted 78 % [facility] [address] %Pre Predicted 125 % [facility] FRC PL Pre 3.11 Liters [facility] FRC PL Predicted 2.49 Liters [facility] FVC %Change 0 % [facility] FVC %Post Predicted 91 % [facility] FVC %Pre Predicted 91 % [facility] FVC Post 4.11 Liters [facility] FVC Pre 4.10 Liters [facility] FVC Predicted 4.50 Liters [facility] RV %Pre Predicted 128 % [facility] lt RV Pre 2.41 Liters [facility] RV Predicted 1.88 Liters [facility] TLC %Pre Predicted 112 % [facility] TLC Pre 6.58 Liters [facility] TLC Predicted 5.90 Liters [facility] VC %Pre Predicted 93 % [facility] VC Pre 4.17 Liters [facility] VC Predicted 4.50 Liters [facility] INTERPRETATION: ATS Guidelines met. Good patient effort. Spirometry shows borderline/very mild obstruction that appears fixed. Lung volumes are normal. Diffusion capacity uncorrected for hemoglobin is mildly reduced, but does correct when alveolar volumes accounted for. Early/very mild COPD. [facility] POC Glucoseon 01-23-2019 Glucose [Mass/Vol] 163 mg/dL High 65 - 99 mg/dL [facility] Interpretation and review of laboratory results Abnormal [facility] Glucose [Mass/Vol] 110 mg/dL High 65 - 99 mg/dL [facility] Interpretation and review of laboratory results Abnormal [facility] Glucose [Mass/Vol] 106 mg/dL High 65 - 99 mg/dL [facility] Interpretation and review of laboratory results Abnormal [facility] Upper Respiratory Aerobic Cu ltureon 01-23-2019 Bacteria identified Aer cx Nom (Nose) Light Growth Staphylococcus aureus Abnormal [facility] Comment on above: This Staphylococcus aureus is Methicillin SUSCEPTIBLE by PBP2a testing. Beta-lactams like Cefazolin and Nafcillin are superior to Vancomycin for treating mSsa. Interpretation and review of laboratory results Abnormal [facility] Urine Aerobic Cultureon 01-12 Bacteria identified Aer cx Nom (Unsp spec) 10,000-49,000 CFU/mL Staphylococcus aureus Abnormal [facility] Interpretation and review of laboratory results Abnormal [facility] APTTon 01-22-2019 aPTT Coag (Bld) [Time] [address] [facility] Therapeutic range fo r APTT's is 68 - 104 seconds [facility] aPTT Coag (Bld) [Time] [address] [facility] Interpretation and review of laboratory results Abnormal [facility] Therapeutic range fo r APTT's is 68 - 104 seconds [facility] aPTT Coag (Bld) [Time] [address] [facility] Interpretation and review of laboratory results Abnormal [facility] Therapeutic range fo r APTT's is 68 - 104 seconds [facility] Basic Metabolic Panelon 01-12 Anion gap [Moles/Vol] 12 mmol/L 10 - 2 0 mmol/L [facility] Calcium [Mass/Vol] 8.9 mg/dL 8.4 - 10. 2 mg/dL [facility] Chloride [Moles/Vol] 102 mmol/L 98 - 10 8 mmol/L [facility] Creatinine [Mass/Vol] 1.23 mg/dL 0.5 - 1.3 mg/dL [facility] GFR/1.73 sq M.predicted CKD-EPI (S/P/Bld) [Vol rate/Area] 69 >=60 mL/min/1.7 3 m2 [facility] Glucose [Mass/Vol] 125 mg/dL High 65 - 99 mg/dL [facility] HCO3 [Moles/Vol] 25 mmol/L 21 - 32 mmol/L [facility] Interpretation and review of laboratory results Abnormal [facility] Potassium [Moles/Vol] 3.9 mmol/L 3.5 - 5.1 mmol/L [facility] Sodium [Moles/Vol] 135 mmol/L 135 - 145 mmol/L [facility] Urea nitrogen [Mass/Vol] 26 mg/dL High 8 - 25 mg/dL [facility] Urea nitrogen/Creatinine [Mass ratio] 21.1 mg/mg High [facility] The eGFR should be u sed for monitoring renal function only and not for medication dosing. [facility] CBC WITH AUTO DIFFERENTIALon 01-22-2019 Basophils (Bld) [#/Vol] 0.08 10*3/uL [facility] Basophils/100 WBC (Bld) 0.7 % [facility] Eosinophils (Bld) [#/Vol] 0.74 10*3/uL High [facility] Eosinophils/100 WBC (Bld) 6.5 % [facility] Erythrocyte distribution width (RBC) [Entitic vol] 14.0 % 11.6 - 14.8 % [facility] Hematocrit (Bld) [Volume fraction] 41.8 % 41 - 53 % [facility] Hemoglobin (Bld) [Mass/Vol] 13.5 g/dL 13.5 - 17.5 g/dL [facility] Immature granulocytes (Bld) [#/Vol] 0.15 10*3/uL [facility] Immature granulocytes/100 WBC (Bld) 1.30 % [facility] Comment on above: The IG parameter is the percentage of metamyelocytes, myelocytes, and promyelocytes. Interpretation and review of laboratory results Abnormal [facility] Lymphocytes (Bld) [#/Vol] 3.52 10*3/uL [facility] Lymphocytes/100 WBC (Bld) 30.9 % [facility] MCH (RBC) [Entitic mass] 27.4 pg 26 - 34 pg [facility] MCHC (RBC) [Mass/Vol] 32.3 g/dL 31 - 3 7 g/dL [facility] MCV (RBC) [Entitic vol] 85.0 fL 80 - 100 fL [facility] Monocytes (Bld) [#/Vol] 0.93 10*3/uL [facility] Monocytes/100 WBC (Bld) 8.2 % [facility] Neutrophils (Bld) [#/Vol] 5.96 10*3/uL [facility] Neutrophils/100 WBC (Bld) 52.4 % [facility] Nucleated RBC (Bld) [#/Vol] 0.00 10*3/uL [facility] Nucleated RBC/100 WBC (Bld) [Ratio] 0.0 % [facility] Platelet mean volume (Bld) [Entitic vol] 10.0 fL 9 - 15.5 fL [facility] Platelets (Bld) [#/Vol] 237 10*3/uL [facility] RBC (Bld) [#/Vol] 4.92 10*6/uL [facility] WBC (Bld) [#/Vol] 11.38 10*3/uL [facility] DRUGS OF ABUSE SCREEN, URINE on 01-22-2019 Amphetamines Ql (U) None Detected None Detected [facility] Comment on above: Urine Amphetamine Cu toff: < 1000 ng/mL = None Detected Barbiturates Screen Ql (U) None Detected None Detected [facility] Comment on above: Urine Barbiturates C utoff: < 200 ng/mL = None Detected Benzodiazepines Ql (U) None Detected None Detected [facility] Comment on above: Urine Benzodiazepine Cutoff: < 200 ng/mL = None Detected Cannabinoids Screen Ql (U) None Detected None Detected [facility] Comment on above: Urine Cannabinoids C utoff: < 50 ng/mL = None Detected Cocaine Ql (U) None Detected None Detected [facility] Comment on above: Urine Cocaine Cutoff : < 300 ng/mL = None Detected Interpretation and review of laboratory results Normal [facility] Methadone Screen Ql (U) None Detected Non e Detected [facility] Comment on above: Urine Methadone Cuto ff: < 300 ng/mL = None Detected Opiates Screen Ql (U) None Detected None Detected [facility] Comment on above: Urine Opiates Cutoff : < 300 ng/mL = None Detected Oxycodone Ql (U) None Detected None Detected [facility] Comment on above: Urine Oxycodone Cuto ff: < 100 ng/mL = None Detected Screen results shoul d be used for treatment purposes only. [facility] Otheron 01-22-2019 Interpretation and review of laboratory results Abnormal [facility] POC Glucoseon 01-22-2019 Glucose [Mass/Vol] 142 mg/dL High 65 - 99 mg/dL [facility] Interpretation and review of laboratory results Abnormal [facility] Glucose [Mass/Vol] 107 mg/dL High 65 - 99 mg/dL [facility] Glucose [Mass/Vol] 116 mg/dL High 65 - 99 mg/dL [facility] Interpretation and review of laboratory results Abnormal [facility] URINALYSISon 01-22-2019 Bacteria Auto Ql (U) None Seen None Se en /hpf [facility] Bilirubin Ql (U) Negative Negative [facility] th Clarity Refractometry automated (U) Clear Clear [facility] Color (U) Colorless Colorless, Yellow [facility] Glucose Auto test strip (U) [Mass/Vol] Negative Negative mg/dL [facility] Hemoglobin Auto test strip Ql (U) Negative Negative [facility] Interpretation and review of laboratory results Normal [facility] Ketones (U) [Mass/Vol] Negative Negat bryan mg/dL [facility] Leukocyte esterase Auto test strip Ql (U) Negative Negative [facility] Nitrite Auto test strip Ql (U) Negative Negative [facility] pH (U) 6.0 [pH] [facility] Protein (U) [Mass/Vol] Negative Negat bryan mg/dL [facility] RBC Auto (Urine sed) [#/Area] <1 [facility] Specific gravity (U) [Rel density] 1.008 [facility] Urobilinogen (U) [Mass/Vol] <2.0 <2.0 mg/dL [facility] WBC Auto (Urine sed) [#/Area] <1 [facility] Microscopic examinat ion is performed on all urinalysis samples and only positive findings are reported. The test for blood on the chemical analytic portion of urinalysis may also be positive due to hemoglobinuria and myoglobinuria and if red blood cells are present they are quantified by microscopic examination. [facility] APTTon 01-21-2019 aPTT Coag (Bld) [Time] 30 s [facility] Interpretation and review of laboratory results Normal [facility] Therapeutic range fo r APTT's is 68 - 104 seconds [facility] Basic Metabolic Panelon 01-12 Anion gap [Moles/Vol] 11 mmol/L 10 - 2 0 mmol/L [facility] Calcium [Mass/Vol] 9.1 mg/dL 8.4 - 10. 2 mg/dL [facility] Chloride [Moles/Vol] 102 mmol/L 98 - 10 8 mmol/L [facility] Creatinine [Mass/Vol] 1.11 mg/dL 0.5 - 1.3 mg/dL [facility] GFR/1.73 sq M.predicted CKD-EPI (S/P/Bld) [Vol rate/Area] 79 >=60 mL/min/1.7 3 m2 [facility] Glucose [Mass/Vol] 116 mg/dL High 65 - 99 mg/dL [facility] HCO3 [Moles/Vol] 26 mmol/L 21 - 32 mmol/L [facility] Interpretation and review of laboratory results Abnormal [facility] Potassium [Moles/Vol] 4.0 mmol/L 3.5 - 5.1 mmol/L [facility] Sodium [Moles/Vol] 135 mmol/L 135 - 145 mmol/L [facility] Urea nitrogen [Mass/Vol] 22 mg/dL 8 - 25 mg/dL [facility] Urea nitrogen/Creatinine [Mass ratio] 19.8 mg/mg [facility] The eGFR should be u sed for monitoring renal function only and not for medication dosing. [facility] CBC WITH AUTO DIFFERENTIALon 01-21-2019 Basophils (Bld) [#/Vol] 0.07 10*3/uL [facility] Basophils/100 WBC (Bld) 0.6 % [facility] Eosinophils (Bld) [#/Vol] 0.69 10*3/uL High [facility] Eosinophils/100 WBC (Bld) 6.1 % [facility] Erythrocyte distribution width (RBC) [Entitic vol] 14.0 % 11.6 - 14.8 % [facility] Hematocrit (Bld) [Volume fraction] 43.6 % 41 - 53 % [facility] Hemoglobin (Bld) [Mass/Vol] 14.2 g/dL 13.5 - 17.5 g/dL [facility] Immature granulocytes (Bld) [#/Vol] 0.14 10*3/uL [facility] Immature granulocytes/100 WBC (Bld) 1.20 % [facility] Comment on above: The IG parameter is the percentage of metamyelocytes, myelocytes, and promyelocytes. Interpretation and review of laboratory results Abnormal [facility] Lymphocytes (Bld) [#/Vol] 2.23 10*3/uL [facility] Lymphocytes/100 WBC (Bld) 19.8 % [facility] MCH (RBC) [Entitic mass] 27.6 pg 26 - 34 pg [facility] MCHC (RBC) [Mass/Vol] 32.6 g/dL 31 - 3 7 g/dL [facility] MCV (RBC) [Entitic vol] 84.7 fL 80 - 100 fL [facility] Monocytes (Bld) [#/Vol] 0.98 10*3/uL [facility] Monocytes/100 WBC (Bld) 8.7 % [facility] Neutrophils (Bld) [#/Vol] 7.17 10*3/uL [facility] Neutrophils/100 WBC (Bld) 63.6 % [facility] Nucleated RBC (Bld) [#/Vol] 0.00 10*3/uL [facility] Nucleated RBC/100 WBC (Bld) [Ratio] 0.0 % [facility] Platelet mean volume (Bld) [Entitic vol] 9.9 fL 9 - 15.5 fL [facility] Platelets (Bld) [#/Vol] 267 10*3/uL [facility] RBC (Bld) [#/Vol] 5.15 10*6/uL [facility]alt WBC (Bld) [#/Vol] 11.28 10*3/uL [facility] ECHOCARDIOGRAM 2D COMPLETEon 01-21-[address] [address] [place] [address] ----- ECHOCARDIOGRAPHY REPORT - [facility] ----- Name: FERNANDO Priyanka HELTON Age: 48 years Date: 01/21/2019 [facility] #: [id number] : 1970 Room: [facility] Rec #: [id number] Sex: M Tech: Emma Tsai Ordering Physician: [id number] KRISTIN ABRAHAM TITLEY Height: 67.00 Sys BP: 119 in cc: , Weight: 257.00 Mira BP: 78 Reading Physician: [id number] Durán/ Rhythm: Sinus Electronically Signed by: [id number] Durán BSA: 2.25 m on: 01/21/2019 Reason [...] LA Index (BP) 17.6 ml/m TAPSE LAESV [employer] ARCHITECT NOTES: Definity (if used): 3ml Final [facility] Keith Robin In [facility] - 01/21/2019 3:[address] [address] [place] [address] ----- ECHOCARDIOGRAPHY REPORT - [facility] ----- Name: FERNANDO HELTON Age: 48 years Date: 01/21/2019 Hospital #: [id number] : 1970 Room: [facility] Rec #: [id number] Sex: M Tech: Emma Tsai Ordering Physician: [id number] KRISTIN ABRAHAM TITLEY Height: 67.00 Sys BP: 119 in cc: , Weight: 257.00 Mira BP: 78 Reading Physician: [id number] Magda Durán/ Rhythm: Sinus Electronically Signed by: [id number] Magda Durán BSA: 2.25 m on: 01/21/2019 [...] LA Index (BP) 17.6 ml/m TAPSE [employer] NOTES: Definity (if used): 3ml Final IMPRESSION: 1. Mildly dilated left ventricle with basal septal wall hypertrophy measuring 1.5 cm in maximal thickness. Mild segmental left ventricular systolic dysfunction with estimated LVEF 45-50%. Wall motion abnormalities as outlined below. [facility] 1. Mildly dilated le ft ventricle with basal septal wall hypertrophy measuring 1.5 cm in maximal thickness. Mild segmental left ventricular systolic dysfunction with estimated LVEF 45-50%. Wall motion abnormalities as outlined below. [facility] POC Glucoseon 01-21-2019 Glucose [Mass/Vol] 147 mg/dL High 65 - 99 mg/dL [facility] Interpretation and review of laboratory results Abnormal [facility] Glucose [Mass/Vol] 176 mg/dL High 65 - 99 mg/dL [facility] Interpretation and review of laboratory results Abnormal [facility] Glucose [Mass/Vol] 119 mg/dL High 65 - 99 mg/dL [facility] Interpretation and review of laboratory results Abnormal [facility] XR CHEST AP/PA AND LATon Interface, Rad [...] No acute cardiopulmonary disease. Workstation ID: [id number] [facility] EXAMINATION: XR CHES T AP/PA AND LAT [...] focal airspace consolidation, or pulmonary vascular congestion. [facility] No acute cardiopulmo nary disease. Workstation ID: [id number] [facility] ABORH VERIFICATIONon 019 ABO and Rh group Nom (Bld) ABO/Rh Verification [facility] ABO and Rh group Nom (Bld) O Negative [facility] Patient's ABO/Rh is verified. [facility] AMYLASEon 01-20-2019 Amylase [Catalytic activity/Vol] 38 U/L 25 - 115 U/L [facility] APTTon 01-20-2019 aPTT Coag (Bld) [Time] 61 s High [facility] Interpretation and review of laboratory results Abnormal [facility] Therapeutic range fo r APTT's is 68 - 104 seconds [facility] Basic Metabolic Panelon Anion gap [Moles/Vol] 12 mmol/L 10 - 2 0 mmol/L [facility] Calcium [Mass/Vol] 8.3 mg/dL Low 8.4 - 10. 2 mg/dL [facility] Chloride [Moles/Vol] 106 mmol/L 98 - 10 8 mmol/L [facility] Creatinine [Mass/Vol] 1.17 mg/dL 0.5 - 1.3 mg/dL [facility] GFR/1.73 sq M.predicted CKD-EPI (S/P/Bld) [Vol rate/Area] 74 >=60 mL/min/1.7 3 m2 [facility] Glucose [Mass/Vol] 134 mg/dL High 65 - 99 mg/dL [facility] HCO3 [Moles/Vol] 24 mmol/L 21 - 32 mmol/L [facility] Interpretation and review of laboratory results Abnormal [facility] Potassium [Moles/Vol] 3.9 mmol/L 3.5 - 5.1 mmol/L [facility] Sodium [Moles/Vol] 138 mmol/L 135 - 145 mmol/L [facility] Urea nitrogen [Mass/Vol] 19 mg/dL 8 - 25 mg/dL [facility] Urea nitrogen/Creatinine [Mass ratio] 16.2 mg/mg [facility] The eGFR should be u sed for monitoring renal function only and not for medication dosing. [facility] CARDIAC CATHETERIZATIONon Cardiac Catheterizat ion Operative Report [...] the chart. Patient was brought to the Product [employer] Chemist and prepped and draped in usual sterile [...] using a modified Seldinger technique. A 5 Taiwanese sheath was placed. JL4 and JR4 catheter [...] None; patient tolerated the procedure well. Disposition: [facility] Bed Condition: stable Electronically Signed by: Carlo Mercedes M.D 01/20/19 9:09 AM [facility] CBC WITH AUTO DIFFERENTIALon 01-20-2019 Basophils (Bld) [#/Vol] 0.08 10*3/uL [facility] Basophils/100 WBC (Bld) 0.6 % [facility] Eosinophils (Bld) [#/Vol] 0.76 10*3/uL High [facility] Eosinophils/100 WBC (Bld) 5.7 % [facility] Erythrocyte distribution width (RBC) [Entitic vol] 14.2 % 11.6 - 14.8 % [facility] Hematocrit (Bld) [Volume fraction] 41.2 % 41 - 53 % [facility] Hemoglobin (Bld) [Mass/Vol] 13.6 g/dL 13.5 - 17.5 g/dL [facility] Immature granulocytes (Bld) [#/Vol] 0.10 10*3/uL [facility] Immature granulocytes/100 WBC (Bld) 0.70 % [facility] Comment on above: The IG parameter is the percentage of metamyelocytes, myelocytes, and promyelocytes. Interpretation and review of laboratory results Abnormal [facility] Lymphocytes (Bld) [#/Vol] 3.59 10*3/uL [facility] Lymphocytes/100 WBC (Bld) 26.7 % [facility] MCH (RBC) [Entitic mass] 28.2 pg 26 - 34 pg [facility] MCHC (RBC) [Mass/Vol] 33.0 g/dL 31 - 3 7 g/dL [facility] MCV (RBC) [Entitic vol] 85.3 fL 80 - 100 fL [facility] Monocytes (Bld) [#/Vol] 1.01 10*3/uL [facility] Monocytes/100 WBC (Bld) 7.5 % [facility] Neutrophils (Bld) [#/Vol] 7.90 10*3/uL High [facility] Neutrophils/100 WBC (Bld) 58.8 % [facility] Nucleated RBC (Bld) [#/Vol] 0.00 10*3/uL [facility] Nucleated RBC/100 WBC (Bld) [Ratio] 0.0 % [facility] Platelet mean volume (Bld) [Entitic vol] 10.1 fL 9 - 15.5 fL [facility] Platelets (Bld) [#/Vol] 259 10*3/uL [facility] RBC (Bld) [#/Vol] 4.83 10*6/uL [facility]alth WBC (Bld) [#/Vol] 13.44 10*3/uL [facility] EKGon 01-20-2019 Ordered by an unspec ified provider. [facility] Hemoglobin A1con 01-20-2019 Average glucose Estimated from glycated hemoglobin mass conc (Bld) 140 mg/dL High 68 - 114 mg/dL [facility] HbA1c (Bld) [Mass fraction] 6.5 % High 4 - 5.6 % [facility] Interpretation and review of laboratory results Abnormal [facility] Normal: 4.0% - 5.6% Increased risk for diabetes: 5.7% - 6.4% Diabetes: >= 6.5% Pediatrics: No established reference range Estimated average glucose: 68-114 mg/dL [facility] Hepatic Function Panelon Albumin [Mass/Vol] 3.1 g/dL Low 3.2 - 5.2 g/dL [facility] ALP [Catalytic activity/Vol] 68 U/L 40 - 150 U/L [facility] ALT [Catalytic activity/Vol] 79 U/L High 14 - 65 U/L [facility] AST [Catalytic activity/Vol] 42 U/L 0 - 45 U/L [facility] Bilirubin [Mass/Vol] 0.7 mg/dL 0 - 1.3 mg/dL [facility] Bilirubin.conjugated [Mass/Vol] 0.1 mg/dL 0 - 0.4 mg/dL [facility] Protein [Mass/Vol] 6.3 g/dL 6 - 8 g/dL [facility] Otheron 01-20-2019 Interpretation and review of laboratory results Normal [facility] Interpretation and review of laboratory results Abnormal [facility] POC ARTERIAL BLOOD GAS PANEL -PULM - RALSon 01-20-2019 Alveolar-arterial oxygen Partial pressure difference 24.0 mm Hg [facility] Base excess Calc (Bld) [Moles/Vol] 0.6 mmol/L [facility] Breath rate setting Ventilator synchronized intermittent mandatory 0 [facility] h CO2 (Bld) [Partial pressure] 41.3 mm[Hg] [facility] HCO3 (Bld) [Moles/Vol] 25.5 mmol/L 22 - 26 mmol/L [facility] Hematocrit (BldA) [Volume fraction] 43.1 % 41 - 53 % [facility] Hemoglobin (Bld) [Mass/Vol] 14.1 g/dL 13.5 - 18 g/dL [facility] Inhaled oxygen concentration 21 % [facility] Interpretation and review of laboratory results Abnormal [facility] Oxygen (Bld) [Partial pressure] 70 mm[Hg] Low [facility] pH (Bld) 7.40 [pH] [facility] SaO2% (BldA) [Mass fraction] 94.5 % 92 - 99 % [facility] Specimen source Nom (Unsp spec) Radial, left [facility] Tidal volume setting Ventilator 0 [facility] PT/INRon 01-20-2019 INR Coag (PPP) [Relative time] 1.0 {INR} [facility] Interpretation and review of laboratory results Normal [facility] PT Coag (PPP) [Time] 12.7 s [facility] During the induction phase of oral anticoagulation, the INR may not reflect the anticoagulation status of the patient. Therapeutic ranges for INR's are: Most clinical situations: INR 2.0-3.0 Mechanical Prosthetic Valve: INR 2.5-3.5 Critical: INR >5.0 [facility] Prealbuminon 01-20-2019 Prealbumin [Mass/Vol] 19.7 mg/dL Low 20 - 4 0 mg/dL [facility] T4, Freeon 01-20-2019 Free T4 [Mass/Vol] 1.0 ng/dL 0.7 - 1.7 ng/dL [facility] TSHon 01-20-2019 TSH Qn 1.15 m[IU]/L [facility] Type and Screenon 01-20-2019 ABO and Rh group Nom (Bld) O Negative [facility] Blood group antibody screen Ql Negative [facility] Specimen Expires 01/23/2019 23:59 EST [facility] APTTon 01-19-2019 aPTT Coag (Bld) [Time] 79 s High [facility] Interpretation and review of laboratory results Abnormal [facility] Therapeutic range fo r APTT's is 68 - 104 seconds [facility] aPTT Coag (Bld) [Time] 85 s High [facility] Interpretation and review of laboratory results Abnormal [facility] Therapeutic range fo r APTT's is 68 - 104 seconds [facility] aPTT Coag (Bld) [Time] 89 s High [facility] Interpretation and review of laboratory results Abnormal [facility] Therapeutic range fo r APTT's is 68 - 104 seconds [facility] Basic Metabolic Panelon Anion gap [Moles/Vol] 11 mmol/L 10 - 2 0 mmol/L [facility] Calcium [Mass/Vol] 8.6 mg/dL 8.4 - 10. 2 mg/dL [facility] Chloride [Moles/Vol] 108 mmol/L 98 - 10 8 mmol/L [facility] Creatinine [Mass/Vol] 1.15 mg/dL 0.5 - 1.3 mg/dL [facility] GFR/1.73 sq M.predicted CKD-EPI (S/P/Bld) [Vol rate/Area] 75 >=60 mL/min/1.7 3 m2 [facility] Glucose [Mass/Vol] 121 mg/dL High 65 - 99 mg/dL [facility] HCO3 [Moles/Vol] 25 mmol/L 21 - 32 mmol/L [facility] Interpretation and review of laboratory results Abnormal [facility] Potassium [Moles/Vol] 4.0 mmol/L 3.5 - 5.1 mmol/L [facility] Sodium [Moles/Vol] 140 mmol/L 135 - 145 mmol/L [facility] Urea nitrogen [Mass/Vol] 19 mg/dL 8 - 25 mg/dL [facility] Urea nitrogen/Creatinine [Mass ratio] 16.5 mg/mg [facility] The eGFR should be u sed for monitoring renal function only and not for medication dosing. [facility] CBCon 01-19-2019 Erythrocyte distribution width (RBC) [Entitic vol] 14.1 % 11.6 - 14.8 % [facility] Hematocrit (Bld) [Volume fraction] 41.6 % 41 - 53 % [facility] Hemoglobin (Bld) [Mass/Vol] 13.8 g/dL 13.5 - 17.5 g/dL [facility] Interpretation and review of laboratory results Abnormal [facility] MCH (RBC) [Entitic mass] 28.1 pg 26 - 34 pg [facility] MCHC (RBC) [Mass/Vol] 33.2 g/dL 31 - 3 7 g/dL [facility] MCV (RBC) [Entitic vol] 84.7 fL 80 - 100 fL [facility] Nucleated RBC (Bld) [#/Vol] 0.00 10*3/uL [facility] Nucleated RBC/100 WBC (Bld) [Ratio] 0.0 % [facility] Platelet mean volume (Bld) [Entitic vol] 10.0 fL 9 - 15.5 fL [facility] Platelets (Bld) [#/Vol] 258 10*3/uL [facility] RBC (Bld) [#/Vol] 4.91 10*6/uL [facility] WBC (Bld) [#/Vol] 14.77 10*3/uL [facility] CBC WITH AUTO DIFFERENTIALon 01-19-2019 Basophils (Bld) [#/Vol] 0.08 10*3/uL [facility] Basophils/100 WBC (Bld) 0.6 % [facility] Eosinophils (Bld) [#/Vol] 0.74 10*3/uL High [facility] Eosinophils/100 WBC (Bld) 5.6 % [facility] Erythrocyte distribution width (RBC) [Entitic vol] 14.3 % 11.6 - 14.8 % [facility] Hematocrit (Bld) [Volume fraction] 41.6 % 41 - 53 % [facility] Hemoglobin (Bld) [Mass/Vol] 13.7 g/dL 13.5 - 17.5 g/dL [facility] Immature granulocytes (Bld) [#/Vol] 0.10 10*3/uL [facility] Immature granulocytes/100 WBC (Bld) 0.80 % [facility] Comment on above: The IG parameter is the percentage of metamyelocytes, myelocytes, and promyelocytes. Interpretation and review of laboratory results Abnormal [facility] Lymphocytes (Bld) [#/Vol] 3.57 10*3/uL [facility] Lymphocytes/100 WBC (Bld) 27.0 % [facility] MCH (RBC) [Entitic mass] 28.3 pg 26 - 34 pg [facility] MCHC (RBC) [Mass/Vol] 32.9 g/dL 31 - 3 7 g/dL [facility] MCV (RBC) [Entitic vol] 86.0 fL 80 - 100 fL [facility] Monocytes (Bld) [#/Vol] 0.92 10*3/uL [facility] Monocytes/100 WBC (Bld) 7.0 % [facility] Neutrophils (Bld) [#/Vol] 7.81 10*3/uL [facility] Neutrophils/100 WBC (Bld) 59.0 % [facility] Nucleated RBC (Bld) [#/Vol] 0.00 10*3/uL [facility] Nucleated RBC/100 WBC (Bld) [Ratio] 0.0 % [facility] Platelet mean volume (Bld) [Entitic vol] 10.1 fL 9 - 15.5 fL [facility] Platelets (Bld) [#/Vol] 256 10*3/uL [facility] RBC (Bld) [#/Vol] 4.84 10*6/uL [facility] WBC (Bld) [#/Vol] 13.22 10*3/uL [facility] APTTon 01-18-2019 aPTT Coag (Bld) [Time] [address] [facility] Interpretation and review of laboratory results Abnormal [facility] Therapeutic range fo r APTT's is 68 - 104 seconds [facility] aPTT Coag (Bld) [Time] [address] [facility] Interpretation and review of laboratory results Abnormal [facility] Therapeutic range fo r APTT's is 68 - 104 seconds [facility] aPTT Coag (Bld) [Time] 31 s [facility] Interpretation and review of laboratory results Normal [facility] Therapeutic range fo r APTT's is 68 - 104 seconds [facility] Basic Metabolic Panelon 12- Anion gap [Moles/Vol] 9 mmol/L Low 10 - 2 0 mmol/L [facility] Calcium [Mass/Vol] 8.1 mg/dL Low 8.4 - 10. 2 mg/dL [facility] Chloride [Moles/Vol] 109 mmol/L High 98 - 10 8 mmol/L [facility] Creatinine [Mass/Vol] 1.11 mg/dL 0.5 - 1.3 mg/dL [facility] GFR/1.73 sq M.predicted CKD-EPI (S/P/Bld) [Vol rate/Area] 79 >=60 mL/min/1.7 3 m2 [facility] Glucose [Mass/Vol] 125 mg/dL High 65 - 99 mg/dL [facility] HCO3 [Moles/Vol] 24 mmol/L 21 - 32 mmol/L [facility] Potassium [Moles/Vol] 4.0 mmol/L 3.5 - 5.1 mmol/L [facility] Sodium [Moles/Vol] 138 mmol/L 135 - 145 mmol/L [facility] Urea nitrogen [Mass/Vol] 22 mg/dL 8 - 25 mg/dL [facility] Urea nitrogen/Creatinine [Mass ratio] 19.8 mg/mg [facility] The eGFR should be u sed for monitoring renal function only and not for medication dosing. [facility] CBCon 01-17-2019 Erythrocyte distribution width (RBC) [Entitic vol] 14.1 % 11.6 - 14.8 % [facility] Hematocrit (Bld) [Volume fraction] 38.7 % Low 41 - 53 % [facility] Hemoglobin (Bld) [Mass/Vol] 12.8 g/dL Low 13.5 - 17.5 g/dL [facility] Interpretation and review of laboratory results Abnormal [facility] MCH (RBC) [Entitic mass] 28.4 pg 26 - 34 pg [facility] MCHC (RBC) [Mass/Vol] 33.1 g/dL 31 - 3 7 g/dL [facility] MCV (RBC) [Entitic vol] 85.8 fL 80 - 100 fL [facility] Nucleated RBC (Bld) [#/Vol] 0.00 10*3/uL [facility] Nucleated RBC/100 WBC (Bld) [Ratio] 0.0 % [facility] Platelet mean volume (Bld) [Entitic vol] 9.9 fL 9 - 15.5 fL [facility] Platelets (Bld) [#/Vol] 227 10*3/uL [facility] RBC (Bld) [#/Vol] 4.51 10*6/uL [facility] WBC (Bld) [#/Vol] 11.26 10*3/uL [facility] CBC WITH AUTO DIFFERENTIALon 01-17-2019 Basophils (Bld) [#/Vol] 0.08 10*3/uL [facility] Basophils/100 WBC (Bld) 0.7 % [facility] Eosinophils (Bld) [#/Vol] 0.64 10*3/uL [facility] Eosinophils/100 WBC (Bld) 5.3 % [facility] Erythrocyte distribution width (RBC) [Entitic vol] 14.0 % 11.6 - 14.8 % [facility] Hematocrit (Bld) [Volume fraction] 41.5 % 41 - 53 % [facility] Hemoglobin (Bld) [Mass/Vol] 13.6 g/dL 13.5 - 17.5 g/dL [facility] Immature granulocytes (Bld) [#/Vol] 0.08 10*3/uL [facility] Immature granulocytes/100 WBC (Bld) 0.70 % [facility] Comment on above: The IG parameter is the percentage of metamyelocytes, myelocytes, and promyelocytes. Interpretation and review of laboratory results Abnormal [facility] Lymphocytes (Bld) [#/Vol] 3.37 10*3/uL [facility] Lymphocytes/100 WBC (Bld) 27.9 % [facility] MCH (RBC) [Entitic mass] 28.0 pg 26 - 34 pg [facility] MCHC (RBC) [Mass/Vol] 32.8 g/dL 31 - 3 7 g/dL [facility] MCV (RBC) [Entitic vol] 85.6 fL 80 - 100 fL [facility] Monocytes (Bld) [#/Vol] 1.02 10*3/uL [facility] Monocytes/100 WBC (Bld) 8.4 % [facility] Neutrophils (Bld) [#/Vol] 6.89 10*3/uL [facility] Neutrophils/100 WBC (Bld) 57.0 % [facility] Nucleated RBC (Bld) [#/Vol] 0.00 10*3/uL [facility] Nucleated RBC/100 WBC (Bld) [Ratio] 0.0 % [facility] Platelet mean volume (Bld) [Entitic vol] 10.0 fL 9 - 15.5 fL [facility] Platelets (Bld) [#/Vol] 269 10*3/uL [facility] RBC (Bld) [#/Vol] 4.85 10*6/uL [facility] WBC (Bld) [#/Vol] 12.08 10*3/uL [facility] D-DIMER, QUANTITATIVEon 12-0 Fibrin D-dimer FEU (PPP) [Mass/Vol] <0.27 0.27 - 0.49 mcg/mL FEU [facility] Interpretation and review of laboratory results Normal [facility] A D-dimer concentrat ion of <0.5 micrograms per milliliter FEU is considered a low probability for pulmonary embolus (PE) and deep venous thrombosis (DVT). Results of this test should always be interpreted in conjunction with the patient's medical history,clinical presentation, and other findings. Clinical diagnosis should not be based on the results of the D-dimer alone. [facility] Fibrin D-dimer FEU (PPP) [Mass/Vol] 0.30 0.27 - 0.49 mcg/mL FEU [facility] Interpretation and review of laboratory results Normal [facility] A D-dimer concentrat ion of <0.5 micrograms per milliliter FEU is considered a low probability for pulmonary embolus (PE) and deep venous thrombosis (DVT). Results of this test should always be interpreted in conjunction with the patient's medical history,clinical presentation, and other findings. Clinical diagnosis should not be based on the results of the D-dimer alone. [facility] ECG 12-LEADon 01-17-2019 Atrial Rate 73 BPM [facility] P [place] 67 degrees [facility] P-R Interval 164 ms [facility] Q-T Interval 386 ms [facility] QRS Duration 86 ms [facility] QTC Calculation (Bezet) 425 ms [facility] R [place] 2 degrees [facility] T [place] 65 degrees [facility] Ventricular Rate 73 BPM [facility] th Normal sinus rhythm Low voltage QRS Inferior infarct , age undetermined Cannot rule out Anteroseptal infarct , age undetermined Abnormal ECG ECG Cart Interpretation see physician note for interpretation. Confirmed by Brandy Kc ([id number]) on 01/17/2019 12:18:52 PM [facility] Hepatic Function Panel (LFT) on 01-17-2019 Albumin [Mass/Vol] 3.1 g/dL Low 3.2 - 5.2 g/dL [facility] ALP [Catalytic activity/Vol] 75 U/L 40 - 150 U/L [facility] ALT [Catalytic activity/Vol] 67 U/L High 14 - 65 U/L [facility] AST [Catalytic activity/Vol] 28 U/L 0 - 45 U/L [facility] Bilirubin [Mass/Vol] 0.9 mg/dL 0 - 1.3 mg/dL [facility] Bilirubin.conjugated [Mass/Vol] 0.2 mg/dL 0 - 0.4 mg/dL [facility] Protein [Mass/Vol] 6.2 g/dL 6 - 8 g/dL [facility] Lactic Acid, Plasmaon 2018 Interpretation and review of laboratory results Normal [facility] Lactate [Moles/Vol] 1.2 mmol/L 0.6 - 2 mmol/L [facility] Lipaseon 01-17-2019 Lipase [Catalytic activity/Vol] 89 U/L 73 - 393 U/L [facility] NT Pro BNPon 01-17-2019 Natriuretic peptide.B prohormone N-Terminal [Mass/Vol] 123 pg/mL 0 - 300 pg/mL [facility] Comment on above: Please note referenc e range change as of 01/30/18. [employer] Study Cut-offs Rule In: < /= 50 Years >450 pg/mL 51 Years - 75 Years >900 pg/mL 76 Years - 99 Years >1800 pg/mL Rule Out: All patients <300 pg/mL [facility] Otheron 01-17-2019 Interpretation and review of laboratory results Abnormal [facility] Interpretation and review of laboratory results Normal [facility] PT/INRon 01-17-2019 INR Coag (PPP) [Relative time] 1.0 {INR} [facility] Interpretation and review of laboratory results Normal [facility] PT Coag (PPP) [Time] 12.5 s [facility] During the induction phase of oral anticoagulation, the INR may not reflect the anticoagulation status of the patient. Therapeutic ranges for INR's are: Most clinical situations: INR 2.0-3.0 Mechanical Prosthetic Valve: INR 2.5-3.5 Critical: INR >5.0 [facility] TROPONINon 01-17-2019 Troponin I.cardiac [Mass/Vol] ng/mL <=45 ng/L [facility] Troponin I.cardiac [Mass/Vol] No biomarker evidence of cardiac injury. [facility] Troponin I.cardiac [Mass/Vol] No biomarker evidence of cardiac injury. [facility] Troponin I.cardiac [Mass/Vol] ng/mL <=45 ng/L [facility] Troponin I.cardiac [Mass/Vol] ng/mL <=45 ng/L [facility] Troponin I.cardiac [Mass/Vol] Normal [facility] URINALYSISon 01-17-2019 Bacteria Auto Ql (U) None Seen None Se en /hpf [facility] Bilirubin Ql (U) Negative Negative [facility] th Clarity Refractometry automated (U) Clear Clear [facility] Color (U) Yellow Colorless, Yellow [facility] Glucose Auto test strip (U) [Mass/Vol] Negative Negative mg/dL [facility] Hemoglobin Auto test strip Ql (U) Negative Negative [facility] Interpretation and review of laboratory results Normal [facility] Ketones (U) [Mass/Vol] Negative Negat bryan mg/dL [facility] Leukocyte esterase Auto test strip Ql (U) Negative Negative [facility] Nitrite Auto test strip Ql (U) Negative Negative [facility] pH (U) 6.0 [pH] [facility] Protein (U) [Mass/Vol] Negative Negat bryan mg/dL [facility] Specific gravity (U) [Rel density] 1.019 [facility] Urobilinogen (U) [Mass/Vol] <2.0 <2.0 mg/dL [facility] WBC Auto (Urine sed) [#/Area] <1 [facility] Microscopic examinat ion is performed on all urinalysis samples and only positive findings are reported. The test for blood on the chemical analytic portion of urinalysis may also be positive due to hemoglobinuria and myoglobinuria and if red blood cells are present they are quantified by microscopic examination. [facility] XR Chest 1 Viewon 01-17-2019 No acute cardiopulmo nary process. [employer]ola Workstation ID: [id number] [facility] Interface, Rad In Fu ji Speechq - [...] is unremarkable. IMPRESSION: No acute cardiopulmonary process. [employer] Workstation ID: [id number] [facility] EXAMINATION: XR CHES T PA/AP HISTORY: ORDERING SYSTEM PROVIDED HISTORY: chest pain, TECHNOLOGIST PROVIDED HISTORY: Illness/Other Reason for exam: chest pain Cancer History: u Surgery, RadiationHistory: yes Encounter Type: Initial Additional signs and symptoms: unknown ORDERING SYSTEM PROVIDED DIAGNOSIS CODES: COMPARISON: 01/04/2019. FINDINGS: One-view chest x-ray. No pneumothorax, pleural effusion or focal airspace consolidation. Heart is normal in size. Bony thorax is unremarkable. [facility] ECG 12-LEADon 01-04-2019 Brian Cordoba MD 01/04/2019 7:49 PM ECG 12- Lead Date/Time: 01/04/2019 6:25 PM Performed by: Brian Cordoba MD Authorized by: Brian Cordoba MD Rhythm: sinus rhythm BPM: 75 Comments: Normal sinus rhythm at rate of 75 bpm low voltage QRS; QTC 4 4 4 ms; [facility] POC B-type natriuretic pepti de (BNP)on 01-04-2019 Interpretation and review of laboratory results Normal [facility] Natriuretic peptide B (Bld) [Mass/Vol] 42.1 pg/mL <100 [facility] POC Basic Metabolic Panelon 01-04-2019 Calcium.ionized (Bld) [Mass/Vol] 4.8 mg/dL 4.5 - 5.3 mg/dL [facility] Chloride [Moles/Vol] 102 mmol/L 98 - 10 8 mmol/L [facility] CO2 [Moles/Vol] 27 mmol/L 21 - 32 mmol/L [facility] Creatinine [Mass/Vol] 0.95 mg/dL 0.5 - 1.3 mg/dL [facility] GFR/1.73 sq M.predicted MDRD (S/P/Bld) [Vol rate/Area] 95 mL/min/{1.73_m2} >=60 mL/min/1.7 3 m2 [facility] Glucose [Mass/Vol] 123 mg/dL High 65 - 99 mg/dL [facility] Interpretation and review of laboratory results Abnormal [facility] Potassium [Moles/Vol] 4.0 mmol/L 3.5 - 5.1 mmol/L [facility] Sodium [Moles/Vol] 141 mmol/L 135 - 145 mmol/L [facility] Urea nitrogen [Mass/Vol] 23 mg/dL 8 - 25 mg/dL [facility] POC CBC and Differentialon 1 03-06-2018 Erythrocyte distribution width (RBC) [Entitic vol] 14.8 % 11.6 - 14.8 % [facility] Hematocrit (Bld) [Volume fraction] 43.1 % 41 - 53 % [facility] Hemoglobin (Bld) [Mass/Vol] 14.3 g/dL 13.5 - 17.5 g/dL [facility] Interpretation and review of laboratory results Abnormal [facility] Lymphocytes (Bld) [#/Vol] 3.0 10*3/uL [facility] Lymphocytes/100 WBC (Bld) 25.9 % [facility] MCH (RBC) [Entitic mass] 28.4 pg 26 - 34 pg [facility] MCHC (RBC) [Mass/Vol] 33.2 g/dL 31 - 3 7 g/dL [facility] MCV (RBC) [Entitic vol] 85.5 fL 80 - 100 fL [facility] Mixed 10.6 % [facility] Mixed Abs 1.2 K/mcl [facility] Neutrophil Abs 7.3 High [facility] Neutrophils/100 WBC (Bld) 63.5 % [facility] Platelet mean volume (Bld) [Entitic vol] 10.6 fL 9 - 15.5 fL [facility] Platelets (Bld) [#/Vol] 289 10*3/uL [facility] RBC (Bld) [#/Vol] 5.04 10*6/uL [facility] ealth WBC (Bld) [#/Vol] 11.50 10*3/uL [facility] POC D-dimeron 01-04-2019 Fibrin D-dimer DDU (PPP) [Mass/Vol] <100 <350 ng/mL DDU [facility] Interpretation and review of laboratory results Normal [facility] A D-Dimer concentrat ion of <350 ng/mL [...] normal patients are less than 400 ng/ml. [facility] POC Liver Panel Pluson 01-04 Albumin [Mass/Vol] 3.4 g/dL 3.2 - 5.2 g/dL [facility] ALP [Catalytic activity/Vol] 83 U/L 40 - 150 U/L [facility] ALT [Catalytic activity/Vol] 52 U/L High 0 - 40 U/L [facility] Amylase [Catalytic activity/Vol] 42 U/L 25 - 115 U/L [facility] AST [Catalytic activity/Vol] 34 U/L 0 - 45 U/L [facility] Bilirubin [Mass/Vol] 0.8 mg/dL 0 - 1.3 mg/dL [facility] Gamma glutamyl transferase [Catalytic activity/Vol] 28 U/L 11 - 51 U/L [facility] Interpretation and review of laboratory results Abnormal [facility] Protein [Mass/Vol] 6.5 g/dL 6 - 8 g/dL [facility] POC Troponin Ion 01-04-2019 Interpretation and review of laboratory results Normal [facility] Troponin I.cardiac [Mass/Vol] ng/mL <0.05 ng/mL [facility] XR CHEST AP/PA AND LATon Interface, Rad [...] IMPRESSION: Nonacute two-view chest. Workstation ID: [id number] [facility] EXAMINATION: XR CHES T AP/PA AND LAT [...] The diaphragm and bony elements are intact. [facility] Nonacute two-view ch est. Workstation ID: [id number] [facility] NT PRO BNPon 12-26-2018 Interpretation and review of laboratory results Normal [facility] Natriuretic peptide.B prohormone N-Terminal [Mass/Vol] 58 pg/mL 0 - 300 pg/mL [facility] Comment on above: Please note referenc e range change as of 01/30/18. Pride Study Cut-offs Rule In: < /= 50 Years >450 pg/mL 51 Years - 75 Years >900 pg/mL 76 Years - 99 Years >1800 pg/mL Rule Out: All patients <300 pg/mL [facility] MR Cardiac (Biomedical Equipment Technician Juana heller) w/Velocity Flowon 12-25-2018 [facility] CMR Repor t Name: FERNANDO HELTON : [...] Hypo 51-75% Apical Lateral Mild/Mod Hypo 51-75% [place] Severe Hypo 51-75% + +--- + ------+ [...] m^2 SETUP TYPE: Clinical INPATIENT: No LOCATION: [facility] INCOMPLETE SCAN: No REASON(S) FOR SCAN: Cardiomyopathy, Thrombus (evaluate for) REFERRING PHYSICIAN: PATRICIA LOUIS ATTENDING PHYSICIAN: GILMER EDUARDO TECHNOLOGIST: Vidhi Escobar Patient Account [id number] CPT Codes 74545 ICD10 Codes I50.22 Report generated by [employer], a product of [employer] Interface, Rad In Codementor - 12/25/2018 5:14 PM EST [facility] CMR Report Name: FERNANDO HELTON : 1970 [...] Hypo 51-75% Apical Lateral Mild/Mod Hypo 51-75% [place] Severe Hypo 51-75% + +--- + ------+ [...] m^2 SETUP TYPE: Clinical INPATIENT: No LOCATION: [facility] INCOMPLETE SCAN: No REASON(S) FOR SCAN: Cardiomyopathy, Thrombus (evaluate for) REFERRING PHYSICIAN: PATRICIA LOUIS ATTENDING PHYSICIAN: GILMER EDUARDO TECHNOLOGIST: Vidhi Escobar Patient Account [id number] CPT Codes 81708 ICD10 Codes I50.22 Report generated by [employer], a product of [employer] [facility] ECHOCARDIOGRAM 2D COMPLETEon 12-10-2018 Transthoracic Echocardiogram Patient: KYLE Hernandez [facility] Rec#: [id number] (Age): 1970(48y) Height: 167.64(cm)/65(i Study Date: 12/10/2018 Weight: 112.49(kg)/247( Room#: BSA: [id number] Type: Loc: Sex: M Reading: Magda Durán MD Referring: Moises Patel M.D Ordering ProvidTruax, Kathryn CNS Nuclear Reactor Engineer: Mariann Syed RN RDCS History: COPD. Coronary [...] at 12/10/2018 17:14:17 by: Magda Durán MD [facility] Interface, Rad In [facility] [employer] Echopacs - 12/10/2018 5:28 PM EDT Transthoracic Echocardiogram Patient: KYLE Hernandez [facility] Rec#: [id number] (Age): 1970(48y) Height: 167.64(cm)/65(i Study Date: 12/10/2018 Weight: 112.49(kg)/247( Room#: BSA: [id number] Type: Loc: Sex: M Reading: Magda Durán MD Referring: Moises Patel M.D Ordering Patricia Keller [facility] Nuclear Reactor Engineer: Mariann Syed RN RDCS History: COPD. Coronary [...] at 12/10/2018 17:14:17 by: Magda Durán MD [facility] EKGon 09-28-2018 Ordered by an unspec ified provider. [facility] CBC WITH AUTO DIFFERENTIALon 09-27-2018 Basophils (Bld) [#/Vol] 0.09 10*3/uL [facility] Basophils/100 WBC (Bld) 0.7 % [facility] Eosinophils (Bld) [#/Vol] 0.82 10*3/uL High [facility] Eosinophils/100 WBC (Bld) 6.2 % [facility] Erythrocyte distribution width (RBC) [Entitic vol] 14.7 % 11.6 - 14.8 % [facility] Hematocrit (Bld) [Volume fraction] 44.7 % 41 - 53 % [facility] Hemoglobin (Bld) [Mass/Vol] 14.7 g/dL 13.5 - 17.5 g/dL [facility] Immature granulocytes (Bld) [#/Vol] 0.08 10*3/uL [facility] Immature granulocytes/100 WBC (Bld) 0.60 % [facility] Comment on above: The IG parameter is the percentage of metamyelocytes, myelocytes, and promyelocytes. Interpretation and review of laboratory results Abnormal [facility] Lymphocytes (Bld) [#/Vol] 4.45 10*3/uL High [facility] Lymphocytes/100 WBC (Bld) 33.4 % [facility] MCH (RBC) [Entitic mass] 27.6 pg 26 - 34 pg [facility] MCHC (RBC) [Mass/Vol] 32.9 g/dL 31 - 3 7 g/dL [facility] MCV (RBC) [Entitic vol] 83.9 fL 80 - 100 fL [facility] Monocytes (Bld) [#/Vol] 1.10 10*3/uL [facility] Monocytes/100 WBC (Bld) 8.3 % [facility] Neut[facility]ils (Bld[facility] [#/Vol] 6.79 10*3/uL [facility] Neutrophils/100 WBC (Bld) 50.8 % [facility] Nucleated RBC (Bld) [#/Vol] 0.00 10*3/uL [facility] Nucleated RBC/100 WBC (Bld) [Ratio] 0.0 % [facility] Platelet mean volume (Bld) [Entitic vol] 10.6 fL 9 - 15.5 fL [facility] Platelets (Bld) [#/Vol] 288 10*3/uL [facility] RBC (Bld) [#/Vol] 5.33 10*6/uL [facility] ealth WBC (Bld) [#/Vol] 13.33 10*3/uL [facility] ECG 12-LEADon 09-27-2018 Atrial Rate 90 BPM [facility] P [place] 62 degrees [facility] P-R Interval 164 ms [facility] Q-T Interval 348 ms [facility] QRS Duration 94 ms [facility] QTC Calculation (Bezet) 425 ms [facility] R [place] 0 degrees [facility] T [place] 72 degrees [facility] Ventricular Rate 90 BPM [facility] th Normal sinus rhythm Low voltage QRS Cannot rule out Anteroseptal infarct , age undetermined Abnormal ECG ECG Cart Interpretation see physician note for interpretation. Confirmed by Brandy Kc ([id number]) on 09/27/2018 8:20:21 PM [facility] Nathanael Valencia MD 09/27/2018 10:00 PM ECG 12 Lead Date/Time: 09/27/2018 7:16 PM Performed by: Nathanael Valencia MD Authorized by: Nathanael Valencia MD Comparison: not compared with previous ECG Rhythm: sinus rhythm BPM: 90 Conduction: conduction normal ST Segments: ST segments normal T Waves: T waves normal Clinical impression: non-specific ECG Comments: No acute ischemic changes [facility] POC B-type natriuretic pepti de (BNP)on 09-27-2018 Interpretation and review of laboratory results Normal [facility] Natriuretic peptide B (Bld) [Mass/Vol] 19.0 pg/mL <100 [facility] POC Basic Metabolic Panelon 09-27-2018 Calcium [Mass/Vol] 9.5 mg/dL 8.4 - 10. 2 mg/dL [facility] Chloride [Moles/Vol] 106 mmol/L 98 - 10 8 mmol/L [facility] CO2 [Moles/Vol] 25 mmol/L 21 - 32 mmol/L [facility] Creatinine [Mass/Vol] 1.0 mg/dL 0.5 - 1.3 mg/dL [facility] Glucose [Mass/Vol] 140 mg/dL High 65 - 99 mg/dL [facility] Interpretation and review of laboratory results Abnormal [facility] Potassium [Moles/Vol] 3.4 mmol/L Low 3.5 - 5.1 mmol/L [facility] Sodium [Moles/Vol] 139 mmol/L 135 - 145 mmol/L [facility] Urea nitrogen [Mass/Vol] 20 mg/dL 8 - 25 mg/dL [facility] POC CBC and Differentialon 0 09-27-2018 Comment See Comment Critically abnormal (none) [facility] Comment on above: CRITICAL. CBCD reord ered and sent to . Possible presence of immature granulocytes present. Automated differential not reported. Erythrocyte distribution width (RBC) [Entitic vol] 15.4 % High 11.6 - 14.8 % [facility] Hematocrit (Bld) [Volume fraction] 45.1 % 41 - 53 % [facility] Hemoglobin (Bld) [Mass/Vol] 15.0 g/dL 13.5 - 17.5 g/dL [facility] Interpretation and review of laboratory results Abnormal [facility] MCH (RBC) [Entitic mass] 28.5 pg 26 - 34 pg [facility] MCHC (RBC) [Mass/Vol] 33.3 g/dL 31 - 3 7 g/dL [facility] MCV (RBC) [Entitic vol] 85.6 fL 80 - 100 fL [facility] Platelet mean volume (Bld) [Entitic vol] 10.4 fL 9 - 15.5 fL [facility] Platelets (Bld) [#/Vol] 285 10*3/uL [facility] RBC (Bld) [#/Vol] 5.27 10*6/uL [facility] ealth WBC (Bld) [#/Vol] 13.50 10*3/uL [facility] POC D-dimeron 09-27-2018 Fibrin D-dimer DDU (PPP) [Mass/Vol] <100 <350 ng/mL DDU [facility] Interpretation and review of laboratory results Normal [facility] A D-Dimer concentrat ion of <350 ng/mL [...] normal patients are less than 400 ng/ml. [facility] POC Troponin Ion 09-27-2018 Interpretation and review of laboratory results Normal [facility] Troponin I.cardiac [Mass/Vol] ng/mL <0.05 ng/mL [facility] Interpretation and review of laboratory results Normal [facility] Troponin I.cardiac [Mass/Vol] ng/mL <0.05 ng/mL [facility] XR Chest 1 Viewon 09-27-2018 Negative acute lorin ble chest. BAB/ads Workstation ID: [id number] [facility] EXAMINATION: XR CHES T PA/AP HISTORY: chest pain COMPARISON: Correlation is made with previous single-view chest 01/08/2018. FINDINGS: Portable AP view of the chest is provided. The cardiomediastinal silhouette is stable. A coronary stent is noted. Lungs are free of focal infiltrate. There is no pleural effusion or pneumothorax present. Bones appear unremarkable. [facility] Interface, Rad In Fu ji Speechq - [...] acute portable chest. BAB/ads Workstation ID: [id number] [facility] CBC with Diffon 01-09-2018 Basophils #/vol (Bld) 0.1 K/mcL Normal 0-0.2 [facility] [place] Comment on above: Performed By: #### F SBNP #### Unless otherwise noted, all testing performed by [place] [phone] CLIA: [id number] Slate Picker: Twin Marley M.D. Basophils/100 WBC (Bld) 1.2 % Normal [facility] Comment on above: Performed By: #### F SBNP #### Unless otherwise noted, all testing performed by [place] [phone] CLIA: [id number] Slate Picker: Twin Marley M.D. Eosinophils #/vol (Bld) 0.5 K/mcL Normal 0-0.5 [facility] Comment on above: Performed By: #### F SBNP #### Unless otherwise noted, all testing performed by [place] [phone] CLIA: [id number] Slate Picker: Twin Marley M.D. Eosinophils/100 WBC (Bld) 4.4 % Normal [facility] Comment on above: Performed By: #### F SBNP #### Unless otherwise noted, all testing performed by [place] [address] CLIA: [id number] Slate Picker: Twin Marley M.D. Erythrocyte distribution width Ratio (RBC) 14.8 % High 10-14.[address] [facility] Comment on above: Performed By: #### F SBNP #### Unless otherwise noted, all testing performed by [place] [address] CLIA: [id number] Slate Picker: Twin Marley M.D. Hematocrit Volume Fraction (Bld) 44.7 % Normal 37.9-49.[address] [facility] Comment on above: Performed By: #### F SBNP #### Unless otherwise noted, all testing performed by [place] [address] CLIA: [id number] Slate Picker: Twin Marley M.D. Hemoglobin mass conc (Bld) 14.7 g/dL Normal 12.9-16.[address] [facility] Comment on above: Performed By: #### F SBNP #### Unless otherwise noted, all testing performed by [place] [address] CLIA: [id number] Slate Picker: Twin Marley M.D. Lymphocytes #/vol (Bld) 4.4 K/mcL High 0.9-3.6 O [facility] Comment on above: Performed By: #### F SBNP #### Unless otherwise noted, all testing performed by [place] [address] CLIA: [id number] Slate Picker: Twin Marley M.D. Lymphocytes/100 WBC (Bld) 38.3 % Normal [facility] Comment on above: Performed By: #### F SBNP #### Unless otherwise noted, all testing performed by [place] [address] CLIA: [id number] Slate Picker: Twin Marley M.D. MCH Entitic mass (RBC) 27.7 pg Normal 27.7-34.6 [facility] Comment on above: Performed By: #### F SBNP #### Unless otherwise noted, all testing performed by [place] [address] CLIA: [id number] Slate Picker: Twin Marley M.D. MCHC mass conc (RBC) 32.8 g/dL Low 32.9-35.5 [facility] Comment on above: Performed By: #### F SBNP #### Unless otherwise noted, all testing performed by [place] [phone] CLIA: [id number] Slate Picker: Twin Marley M.D. MCV Entitic volume (RBC) 84.5 fL Normal 82.8-99.[address] [facility] Comment on above: Performed By: #### F SBNP #### Unless otherwise noted, all testing performed by [place] [phone] CLIA: [id number] Slate Picker: Twin Marley M.D. Monocytes #/vol (Bld) 0.8 K/mcL High 0.2-0.6 [facility] [place] Comment on above: Performed By: #### F SBNP #### Unless otherwise noted, all testing performed by [place] [phone] CLIA: [id number] Slate Picker: Twin Marley M.D. Monocytes/100 WBC (Bld) 6.6 % Normal [facility] Comment on above: Performed By: #### F SBNP #### Unless otherwise noted, all testing performed by [place] [address] CLIA: [id number] Slate Picker: Twin Marley M.D. Neutrophils #/vol (Bld) 5.7 K/mcL Normal 1.4-6.8 [facility] Comment on above: Performed By: #### F SBNP #### Unless otherwise noted, all testing performed by [place] [address] CLIA: [id number] Slate Picker: Twin Marley M.D. Platelet mean volume Entitic volume (Bld) 8.7 fL Normal 6.6-10.[address] [facility] Comment on above: Performed By: #### F SBNP #### Unless otherwise noted, all testing performed by [place] [address] CLIA: [id number] Slate Picker: Twin Marley M.D. Platelets #/vol (Bld) 266 K/mcL Normal 139-354 [facility] [place] Comment on above: Performed By: #### F SBNP #### Unless otherwise noted, all testing performed by [place] [address] CLIA: [id number] Slate Picker: Twin Marley M.D. RBC #/vol (Bld) 5.30 M/mcL Normal 4.0-5.5 [facility] Comment on above: Performed By: #### F SBNP #### Unless otherwise noted, all testing performed by [place] [address] CLIA: [id number] Slate Picker: Twin Marley M.D. Segmented Neut % 49.5 % Normal [facility] [place] [facility] Comment on above: Performed By: #### F SBNP #### Unless otherwise noted, all testing performed by [place] [address] CLIA: [id number] Slate Picker: Twin Marley M.D. WBC #/vol (Bld) 11.6 K/mcL High 3.6-10.4 [facility] Comment on above: Performed By: #### F SBNP #### Unless otherwise noted, all testing performed by [place] [phone] CLIA: [id number] Slate Picker: Twin Marley M.D. CHEMG (Basic Metabolic and M g)on 01-09-2018 Calcium mass conc 8.4 mg/dL Normal 8.4-10.2 [facility] Comment on above: Performed By: #### F SBNP #### Unless otherwise noted, all testing performed by [place] [phone] CLIA: [id number] Slate Picker: Twin Marley M.D. Chloride molar conc 103 mmol/L Normal 98-108 [facility] Comment on above: Performed By: #### F SBNP #### Unless otherwise noted, all testing performed by [place] [address] CLIA: [id number] Slate Picker: Twin Marley M.D. CO2 molar conc 27 mmol/L Normal 21-[address] [facility] Comment on above: Performed By: #### F SBNP #### Unless otherwise noted, all testing performed by [place] [address] CLIA: [id number] Slate Picker: Twin Marley M.D. Creatinine mass conc 1.14 mg/dL Normal 0.50-1.30 [facility] Comment on above: Performed By: #### F SBNP #### Unless otherwise noted, all testing performed by [place] [address] CLIA: [id number] Slate Picker: Twin Marley M.D. GFR/1.73 sq M predicted among blacks MDRD vol rate/area (S/P/Bld) mL/min/{1.73_m2} Normal [facility] Comment on above: Result Comment: Afri can [place] GFR Calc Performed By: #### F SBNP #### Unless otherwise noted, all testing performed by [place] [address] CLIA: [id number] Slate Picker: Twin Marley M.D. GFR/1.73 sq M predicted among non-blacks MDRD vol rate/area (S/P/Bld) mL/min/{1.73_m2} Normal [facility] Comment on above: Result Comment: Non- [...] Unless otherwise noted, all testing performed by [place] [address] CLIA: [id number] Slate Picker: Twin Marley M.D. Glucose mass conc 102 mg/dL High 70-99 [facility] Comment on above: Result Comment: This test result might be falsely depressed or falsely elevated on samples drawn from patients taking Sulfasalazine and Sulfapyridine. Venipuncture should occur prior to taking either of these drugs. Performed By: #### F SBNP #### Unless otherwise noted, all testing performed by [place] [address] CLIA: [id number] Slate Picker: Twin Marley M.D. Magnesium mass conc 2.2 mg/dL Normal 1.6-2.4 [facility] Comment on above: Performed By: #### F SBNP #### Unless otherwise noted, all testing performed by [place] [phone] CLIA: [id number] Slate Picker: Twin Marley M.D. Potassium molar conc 4.2 mmol/L Normal 3.5-5.1 [facility] Comment on above: Performed By: #### F SBNP #### Unless otherwise noted, all testing performed by [place] [phone] CLIA: [id number] Slate Picker: Twin Marley M.D. Sodium molar conc 138 mmol/L Normal 135-145 [facility] Comment on above: Performed By: #### F SBNP #### Unless otherwise noted, all testing performed by [place] [address] CLIA: [id number] Slate Picker: Twin Marley M.D. Urea nitrogen mass conc 20 mg/dL Normal 8-25 [facility] Comment on above: Performed By: #### F SBNP #### Unless otherwise noted, all testing performed by [place] [address] CLIA: [id number] Slate Picker: Twin Marley M.D. Cardiac Troponin-Ion 018 Troponin I.cardiac mass conc No Biomarker evidence of myocardial injury within the past [address] [facility] Comment on above: Performed By: #### F SCBC #### Unless otherwise noted, all testing performed by [place] [address] CLIA: [id number] Slate Picker: Twin Marley M.D. Troponin I.cardiac mass conc ng/mL Normal < 45.[address] [facility] Comment on above: Result Comment: Elev ation [...] Unless otherwise noted, all testing performed by [place] [address] CLIA: [id number] Slate Picker: Twin Marley M.D. Partial Thromboplastin Timeo n 01-09-2018 aPTT Coag time (Bld) 48 s High 23.0-34.0 [facility] Comment on above: Result Comment: Sugg ested therapeutic range for PTT is 68-104 sec. Performed By: #### F SBNP #### Unless otherwise noted, all testing performed by [place] [address] CLIA: [id number] Slate Picker: Twin Marley M.D. aPTT Coag time (Bld) 39 s High 23.0-34.0 [facility] Comment on above: Result Comment: Sugg ested therapeutic range for PTT is 68-104 sec. Performed By: #### F SCBC #### Unless otherwise noted, all testing performed by [place] [address] CLIA: [id number] Slate Picker: Twin Marley M.D. Protimeon 01-09-2018 INR Coag RelTime (PPP) 0.94 {INR} Normal [facility] Comment on above: Result Comment: [employer] recommended therapeutic range for Warfarin (Coumadin) therapy goals: PROPHYLAXIS/TREATMENT of: INR Venous Thrombosis, Pulmonary Embolism 2.0-3.0 Prevention of VTE (Orthopedic Surgery) 2.0-3.0 Atrial Fibrillation 2.0-3.0 Myocardial Infarction 2.0-3.0 Mechanical Prosthetic Heart Valves (Aortic position) 2.0-3.0 Mechanical Prosthetic Heart Valves (Mitral Position) 2.5-3.5 [employer] evidence-based clinical practice guidelines. CHEST. 2012 (9th ed) Performed By: #### F SBNP #### Unless otherwise noted, all testing performed by [place] [address] CLIA: [id number] Slate Picker: Twin Marley M.D. Prothrombin time (PT) Coag time (PPP) 12.2 s Normal 11.8-14.[address] [facility] Comment on above: Performed By: #### F SBNP #### Unless otherwise noted, all testing performed by [place] [address] CLIA: [id number] Slate Picker: Twin Marley M.D. BLDPATHon 01-08-2018 BLDPATH [id number] Patient Name: FERNANDO HELTON Source Peripheral Blood Diagnosis Absolute lymphocytosis present. Repeat CBC in 12 months or earlier if clinically indicated. If lymphocytosis persists, suggest flow cytometry to rule out a lymphoproliferative disorder. Electronically Signed By Hematology Department , Testing performed at [facility] (Case signed 01/09/2018) Normal [facility] Blood Smear Reviewon 018 Blood Smear Review See Pathology Report. Normal [facility] Comment on above: Performed By: #### F SCBC #### Unless otherwise noted, all testing performed by [place] [address] CLIA: [id number] Slate Picker: Twin Marley M.D. CBC with Diffon 01-08-2018 Band 1.9 % Normal 0-[address] [facility] Comment on above: Performed By: #### F SBMET #### Unless otherwise noted, all testing performed by [place] [address] CLIA: [id number] Slate Picker: Twin Marley M.D. Basophils #/vol (Bld) 0.0 K/mcL Normal 0-0.[address] [facility] Comment on above: Performed By: #### F SBMET #### Unless otherwise noted, all testing performed by [place] [address] CLIA: [id number] Slate Picker: Twin Marley M.D. Basophils/100 WBC (Bld) 0.0 % Normal [facility] Comment on above: Performed By: #### F SBMET #### Unless otherwise noted, all testing performed by [place] [address] CLIA: [id number] Slate Picker: Twin Marley M.D. Eosinophils #/vol (Bld) 0.6 K/mcL High 0-0.5 [facility] Comment on above: Performed By: #### F SBMET #### Unless otherwise noted, all testing performed by [place] [address] CLIA: [id number] Slate Picker: Twin Marley M.D. Eosinophils/100 WBC (Bld) 3.9 % Normal [facility] Comment on above: Performed By: #### F SBMET #### Unless otherwise noted, all testing performed by [place] [address] CLIA: [id number] Slate Picker: Twin Marley M.D. Erythrocyte distribution width Ratio (RBC) 15.1 % High 10-14.[address] [facility] Comment on above: Performed By: #### F SBMET #### Unless otherwise noted, all testing performed by [place] [phone] CLIA: [id number] Slate Picker: Twin Marley M.D. Hematocrit Volume Fraction (Bld) 44.3 % Normal 37.9-49.[address] [facility] Comment on above: Performed By: #### F SBMET #### Unless otherwise noted, all testing performed by [place] [phone] CLIA: [id number] Slate Picker: Twin Marley M.D. Hemoglobin mass conc (Bld) 14.5 g/dL Normal 12.9-16.[address] [facility] Comment on above: Performed By: #### F SBMET #### Unless otherwise noted, all testing performed by [place] [phone] CLIA: [id number] Slate Picker: Twin Marley M.D. Lymphocytes #/vol (Bld) 5.1 K/mcL High 0.9-3.6 O [facility] Comment on above: Performed By: #### F SBMET #### Unless otherwise noted, all testing performed by [place] [address] CLIA: [id number] Slate Picker: Twin Marley M.D. Lymphocytes/100 WBC (Bld) 35.9 % Normal [facility] Comment on above: Performed By: #### F SBMET #### Unless otherwise noted, all testing performed by [place] [address] CLIA: [id number] Slate Picker: Twin Marley M.D. MCH Entitic mass (RBC) 27.7 pg Normal 27.7-34.6 [facility] Comment on above: Performed By: #### F SBMET #### Unless otherwise noted, all testing performed by [place] [phone] CLIA: [id number] Slate Picker: Twin Marley M.D. MCHC mass conc (RBC) 32.6 g/dL Low 32.9-35.5 [facility] Comment on above: Performed By: #### F SBMET #### Unless otherwise noted, all testing performed by [place] [address] CLIA: [id number] Slate Picker: Twin Marley M.D. MCV Entitic volume (RBC) 84.9 fL Normal 82.8-99.[address] [facility] Comment on above: Performed By: #### F SBMET #### Unless otherwise noted, all testing performed by [place] [address] CLIA: [id number] Slate Picker: Twin Marley M.D. Metamyelocytes/100 WBC (Bld) 1.9 % High [address] [facility] Comment on above: Performed By: #### F SBMET #### Unless otherwise noted, all testing performed by [place] [phone] CLIA: [id number] Slate Picker: Twin Marley M.D. Monocytes #/vol (Bld) 0.6 K/mcL Normal 0.2-0.6 [facility] [place] Comment on above: Performed By: #### F SBMET #### Unless otherwise noted, all testing performed by [place] [phone] CLIA: [id number] Slate Picker: Twin Marley M.D. Monocytes/100 WBC (Bld) 3.9 % Normal [facility] Comment on above: Performed By: #### F SBMET #### Unless otherwise noted, all testing performed by [place] [phone] CLIA: [id number] Slate Picker: Twin Marley M.D. Myelocyte 1.0 % High [address] [facility] Comment on above: Performed By: #### F SBMET #### Unless otherwise noted, all testing performed by [place] [phone] CLIA: [id number] Slate Picker: Twin Marley M.D. Neutrophils #/vol (Bld) 8.1 K/mcL High 1.4-6.8 [facility] Comment on above: Performed By: #### F SBMET #### Unless otherwise noted, all testing performed by [place] [phone] CLIA: [id number] Slate Picker: Twin Marley M.D. Platelet mean volume Entitic volume (Bld) 8.8 fL Normal 6.6-10.[address] [facility] Comment on above: Performed By: #### F SBMET #### Unless otherwise noted, all testing performed by [place] [address] CLIA: [id number] Slate Picker: Twin Marley M.D. Platelets #/vol (Bld) 260 K/mcL Normal 139-354 [facility] [place] Comment on above: Performed By: #### F SBMET #### Unless otherwise noted, all testing performed by [place] [phone] CLIA: [id number] Slate Picker: Twin Marley M.D. RBC #/vol (Bld) 5.22 M/mcL Normal 4.0-5.5 [facility] Comment on above: Performed By: #### F SBMET #### Unless otherwise noted, all testing performed by [place] [phone] CLIA: [id number] Slate Picker: Twin Marley M.D. Segmented Neut % 51.5 % Normal [facility] [place] [facility] Comment on above: Result Comment: Carline mccollum performed. Performed By: #### F SBMET #### Unless otherwise noted, all testing performed by [place] [phone] CLIA: [id number] Slate Picker: Twin Marley M.D. WBC #/vol (Bld) 14.3 K/mcL High 3.6-10.4 [facility] Comment on above: Performed By: #### F SBMET #### Unless otherwise noted, all testing performed by [place] [address] CLIA: [id number] Slate Picker: Twin Marley M.D. CHEST (ONE VIEW ONLY)on 12-14 CHEST (ONE VIEW ONLY) Final Report Accession No: [id number] Performed: Jan 08 2018 6:04PM Examination: [...] MURPHY M.D. Trans: n/a : cc: Normal [facility] Cardiac Troponin-Ion 018 Troponin I.cardiac mass conc ng/mL Normal < 45.[address] [facility] Comment on above: Result Comment: Elev ation [...] Unless otherwise noted, all testing performed by [place] [address] CLIA: [id number] Slate Picker: Twin Marley M.D. Troponin I.cardiac mass conc No Biomarker evidence of myocardial injury within the past [address] [facility] Comment on above: Performed By: #### F SCBC #### Unless otherwise noted, all testing performed by [place] [address] CLIA: [id number] Slate Picker: Twin Marley M.D. Troponin I.cardiac mass conc ng/mL Normal < 45.[address] [facility] Comment on above: Result Comment: Elev ation [...] Unless otherwise noted, all testing performed by [place] [address] CLIA: [id number] Slate Picker: Twin Marley M.D. [facility] 01-08-2018 Albumin mass conc 3.3 g/dL Normal 3.2-5.2 [facility] Comment on above: Performed By: #### F SCBC #### Unless otherwise noted, all testing performed by [place] [address] CLIA: [id number] Slate Picker: Twin Marley M.D. ALP enzyme act/vol 61 U/L Normal 40-150 [facility] Comment on above: Performed By: #### F SCBC #### Unless otherwise noted, all testing performed by [place] [address] CLIA: [id number] Slate Picker: Twin Marley M.D. ALT enzyme act/vol 41 U/L Normal 14-65 [facility] Comment on above: Result Comment: This test result might be falsely depressed or falsely elevated on samples drawn from patients taking Sulfasalazine and Sulfapyridine. Venipuncture should occur prior to taking either of these drugs. Performed By: #### F SCBC #### Unless otherwise noted, all testing performed by [place] [address] CLIA: [id number] Slate Picker: Twin Marley M.D. AST enzyme act/vol 19 U/L Normal 0-45 [facility] Comment on above: Result Comment: This test result might be falsely depressed or falsely elevated on samples drawn from patients taking Sulfasalazine and Sulfapyridine. Venipuncture should occur prior to taking either of these drugs. Performed By: #### F SCBC #### Unless otherwise noted, all testing performed by [place] [address] CLIA: [id number] Slate Picker: Twin Marley M.D. Bilirubin mass conc 0.8 mg/dL Normal 0.3-1.2 [facility] Comment on above: Performed By: #### F SCBC #### Unless otherwise noted, all testing performed by [place] [address] CLIA: [id number] Slate Picker: Twin Marley M.D. Calcium mass conc 8.4 mg/dL Normal 8.4-10.2 [facility] Comment on above: Performed By: #### F SCBC #### Unless otherwise noted, all testing performed by [place] [address] CLIA: [id number] Slate Picker: Twin Marley M.D. Chloride molar conc 107 mmol/L Normal 98-108 [facility] Comment on above: Performed By: #### F SCBC #### Unless otherwise noted, all testing performed by [place] [address] CLIA: [id number] Slate Picker: Twin Marley M.D. CO2 molar conc 26 mmol/L Normal 21-[address] [facility] Comment on above: Performed By: #### F SCBC #### Unless otherwise noted, all testing performed by [place] [address] CLIA: [id number] Slate Picker: Twin Marley M.D. Creatinine mass conc 1.10 mg/dL Normal 0.50-1.30 [facility] Comment on above: Performed By: #### F SCBC #### Unless otherwise noted, all testing performed by [place] [phone] CLIA: [id number] Slate Picker: Twin Marley M.D. GFR/1.73 sq M predicted among blacks MDRD vol rate/area (S/P/Bld) mL/min/{1.73_m2} Normal [facility] Comment on above: Result Comment: Afri can [employer] GFR Calc Performed By: #### F SCBC #### Unless otherwise noted, all testing performed by [place] [address] CLIA: [id number] Slate Picker: Twin Marley M.D. GFR/1.73 sq M predicted among non-blacks MDRD vol rate/area (S/P/Bld) mL/min/{1.73_m2} Normal [facility] Comment on above: Result Comment: Non- [...] Unless otherwise noted, all testing performed by [address] [place], [place] [address] CLIA: [id number] Slate Picker: Twin Marley M.D. Glucose mass conc 96 mg/dL Normal 70-99 [facility] Comment on above: Result Comment: This test result might be falsely depressed or falsely elevated on samples drawn from patients taking Sulfasalazine and Sulfapyridine. Venipuncture should occur prior to taking either of these drugs. Performed By: #### F SCBC #### Unless otherwise noted, all testing performed by [place] [address] CLIA: [id number] Slate Picker: Twin Marley M.D. Potassium molar conc 3.9 mmol/L Normal 3.5-5.1 [facility] Comment on above: Performed By: #### F SCBC #### Unless otherwise noted, all testing performed by [place] [address] CLIA: [id number] Slate Picker: Twin Marley M.D. Protein mass conc 6.6 g/dL Normal 6.0-8.0 [facility] Comment on above: Performed By: #### F SCBC #### Unless otherwise noted, all testing performed by [place] [address] CLIA: [id number] Slate Picker: Twin Marley M.D. Sodium molar conc 141 mmol/L Normal 135-145 [facility] Comment on above: Performed By: #### F SCBC #### Unless otherwise noted, all testing performed by [place] [address] CLIA: [id number] Slate Picker: Twin Marley M.D. Urea nitrogen mass conc 20 mg/dL Normal 8-25 O [facility] Comment on above: Performed By: #### F SCBC #### Unless otherwise noted, all testing performed by [place] [address] CLIA: [id number] Slate Picker: Twin Marley M.D. Magnesiumon 01-08-2018 Magnesium mass conc 2.0 mg/dL Normal 1.6-2.4 [facility] Comment on above: Performed By: #### F SCBC #### Unless otherwise noted, all testing performed by [place] [address] CLIA: [id number] Slate Picker: Twin Marley M.D. NT-Pro BNP, Serumon 01-09-20 18 Natriuretic peptide B mass conc (Bld) 143 pg/mL High 0-[address] [facility] Comment on above: Performed By: #### F SCBC #### Unless otherwise noted, all testing performed by [place] [address] CLIA: [id number] Slate Picker: Twin Marley M.D. Partial Thromboplastin Timeo n 01-08-2018 aPTT Coag time (Bld) 40 s High 23.0-34.0 [facility] Comment on above: Result Comment: Rosemary sauceda therapeutic range for PTT is 68-104 sec. Performed By: #### F SBMET #### Unless otherwise noted, all testing performed by [place] [address] CLIA: [id number] Slate Picker: Twin Marley M.D. Protimeon 01-08-2018 INR Coag RelTime (PPP) 0.99 {INR} Normal [facility] Comment on above: Result Comment: [employer] recommended therapeutic range for Warfarin (Coumadin) therapy goals: PROPHYLAXIS/TREATMENT of: INR Venous Thrombosis, Pulmonary Embolism 2.0-3.0 Prevention of VTE (Orthopedic Surgery) 2.0-3.0 Atrial Fibrillation 2.0-3.0 Myocardial Infarction 2.0-3.0 Mechanical Prosthetic Heart Valves (Aortic position) 2.0-3.0 Mechanical Prosthetic Heart Valves (Mitral Position) 2.5-3.5 [employer] evidence-based clinical practice guidelines. CHEST. 2012 (9th ed) Performed By: #### F SBMET #### Unless otherwise noted, all testing performed by [place] [address] CLIA: [id number] Slate Picker: Twin Marley M.D. Prothrombin time (PT) Coag time (PPP) 12.7 s Normal 11.8-14.[address] [facility] Comment on above: Performed By: #### F SBMET #### Unless otherwise noted, all testing performed by [place] [address] CLIA: [id number] Slate Picker: Twin Marley M.D. TSHon 01-08-2018 Thyrotropin Qn 2.26 uIU/mL Normal 0.270-4.[address] [facility] Comment on above: Result Comment: Samp les from patients routinely receiving high dose biotin therapy (100-300 mg/day) may show falsely decreased results. Please correlate clinically. Please note reference range change as of 12/04/17. Performed By: #### F SCBC #### Unless otherwise noted, all testing performed by [place] [address] CLIA: [id number] Slate Picker: Twin Marley M.D. Basic Metabolic Panelon 12-14 Calcium mass conc 8.4 mg/dL Normal 8.4-10.2 [facility] Comment on above: Performed By: #### F SBMET #### Unless otherwise noted, all testing performed by [place] [address] CLIA: [id number] Slate Picker: Twin Marley M.D. Chloride molar conc 108 mmol/L Normal 98-108 [facility] Comment on above: Performed By: #### F SBMET #### Unless otherwise noted, all testing performed by [place] [address] CLIA: [id number] Slate Picker: Twin Marley M.D. CO2 molar conc 24 mmol/L Normal 21-[address] [facility] Comment on above: Performed By: #### F SBMET #### Unless otherwise noted, all testing performed by [place] [address] CLIA: [id number] Slate Picker: Twin Marley M.D. Creatinine mass conc 1.14 mg/dL Normal 0.50-1.30 [facility] Comment on above: Performed By: #### F SBMET #### Unless otherwise noted, all testing performed by [place] [address] CLIA: [id number] Slate Picker: Twin Marley M.D. GFR/1.73 sq M predicted among blacks MDRD vol rate/area (S/P/Bld) mL/min/{1.73_m2} Normal [facility] Comment on above: Result Comment: Afri can [employer] GFR Calc Performed By: #### F SBMET #### Unless otherwise noted, all testing performed by [place] [address] CLIA: [id number] Slate Picker: Twin Marley M.D. GFR/1.73 sq M predicted among non-blacks MDRD vol rate/area (S/P/Bld) mL/min/{1.73_m2} Normal [facility] Comment on above: Result Comment: Non- [...] Unless otherwise noted, all testing performed by [place] [address] CLIA: [id number] Slate Picker: Twin Marley M.D. Glucose mass conc 119 mg/dL High 70-99 [facility] Comment on above: Result Comment: This test result might be falsely depressed or falsely elevated on samples drawn from patients taking Sulfasalazine and Sulfapyridine. Venipuncture should occur prior to taking either of these drugs. Performed By: #### F SBMET #### Unless otherwise noted, all testing performed by [place] [address] CLIA: [id number] Slate Picker: Twin Marley M.D. Potassium molar conc 3.7 mmol/L Normal 3.5-5.1 [facility] Comment on above: Performed By: #### F SBMET #### Unless otherwise noted, all testing performed by [place] [address] CLIA: [id number] Slate Picker: Twin Marley M.D. Sodium molar conc 140 mmol/L Normal 135-145 [facility] Comment on above: Performed By: #### F SBMET #### Unless otherwise noted, all testing performed by [place] [address] CLIA: [id number] Slate Picker: Twin Marley M.D. Urea nitrogen mass conc 18 mg/dL Normal 8-25 [facility] Comment on above: Performed By: #### F SBMET #### Unless otherwise noted, all testing performed by [place] [address] CLIA: [id number] Slate Picker: Twin Marley M.D. DPATHon 09-24-2017 [facility] [id number] Patient Name: FERNANDO HELTON Source Peripheral Blood Diagnosis Absolute eosinophilia. Possible causes include allergic or drug reaction, cutaneous disorders, collagen vascular disease, parasite infection, pulmonary diseases including sarcoidosis, or underlying neoplasm. Suggest clinical correlation. Electronically Signed By Hematology Department , Testing performed at [facility] (Case signed 09/24/2017) Normal [facility] Basic Metabolic Panelon 09-12 Calcium mass conc 7.6 mg/dL Low 8.4-10.2 [facility] Comment on above: Performed By: #### P T #### Unless otherwise noted, all testing performed by [place] [address] CLIA: [id number] Slate Picker: Twin Marley M.D. Chloride molar conc 108 mmol/L Normal 98-108 [facility] Comment on above: Performed By: #### P T #### Unless otherwise noted, all testing performed by [place] [address] CLIA: [id number] Slate Picker: Twin Marley M.D. CO2 molar conc 27 mmol/L Normal 21-[address] [facility] Comment on above: Performed By: #### P T #### Unless otherwise noted, all testing performed by [place] [address] CLIA: [id number] Slate Picker: Twin Marley M.D. Creatinine mass conc 1.13 mg/dL Normal 0.50-1.30 [facility] Comment on above: Performed By: #### P T #### Unless otherwise noted, all testing performed by [place] [address] CLIA: [id number] Slate Picker: Twin Marley M.D. GFR/1.73 sq M predicted among blacks MDRD vol rate/area (S/P/Bld) mL/min/{1.73_m2} Normal [facility] Comment on above: Result Comment: Afri can [employer] GFR Calc Performed By: #### P T #### Unless otherwise noted, all testing performed by [place] [address] CLIA: [id number] Slate Picker: Twin Marley M.D. GFR/1.73 sq M predicted among non-blacks MDRD vol rate/area (S/P/Bld) mL/min/{1.73_m2} Normal [facility] Comment on above: Result Comment: Non- [...] Unless otherwise noted, all testing performed by [place] [address] CLIA: [id number] Slate Picker: Twin Marley M.D. Glucose mass conc 116 mg/dL High 70-99 [facility] Comment on above: Result Comment: This test result might be falsely depressed or falsely elevated on samples drawn from patients taking Sulfasalazine and Sulfapyridine. Venipuncture should occur prior to taking either of these drugs. Performed By: #### P T #### Unless otherwise noted, all testing performed by [place] [address] CLIA: [id number] Slate Picker: Twin Marley M.D. Potassium molar conc 3.9 mmol/L Normal 3.5-5.1 [facility] Comment on above: Performed By: #### P T #### Unless otherwise noted, all testing performed by [place] [address] CLIA: [id number] Slate Picker: Twin Marley M.D. Sodium molar conc 138 mmol/L Normal 135-145 [facility] Comment on above: Performed By: #### P T #### Unless otherwise noted, all testing performed by [place] [address] CLIA: [id number] Slate Picker: Twin Marley M.D. Urea nitrogen mass conc 17 mg/dL Normal 8-25 [facility] Comment on above: Performed By: #### P T #### Unless otherwise noted, all testing performed by [place] [address] CLIA: [id number] Slate Picker: Twin Marley M.D. Blood Smear Reviewon 018 Blood Smear Review See Pathology Report. Normal [facility] Comment on above: Performed By: #### F SBMET #### Unless otherwise noted, all testing performed by [place] [address] CLIA: [id number] Slate Picker: Twin Marley M.D. CBC with Diffon 09-24-2017 Basophils #/vol (Bld) 0.1 K/mcL Normal 0-0.2 [facility] [place] Comment on above: Performed By: #### F SBMET #### Unless otherwise noted, all testing performed by [place] [address] CLIA: [id number] Slate Picker: Twin Marley M.D. Basophils/100 WBC (Bld) 0.8 % Normal [facility] Comment on above: Performed By: #### F SBMET #### Unless otherwise noted, all testing performed by [place] [phone] CLIA: [id number] Slate Picker: Twin Marley M.D. Eosinophils #/vol (Bld) 0.7 K/mcL High 0-0.5 [facility] Comment on above: Performed By: #### F SBMET #### Unless otherwise noted, all testing performed by [place] [address] CLIA: [id number] Slate Picker: Twin Marley M.D. Eosinophils/100 WBC (Bld) 8.0 % Normal [facility] Comment on above: Performed By: #### F SBMET #### Unless otherwise noted, all testing performed by [place] [address] CLIA: [id number] Slate Picker: Twin Marley M.D. Erythrocyte distribution width Ratio (RBC) 15.4 % High 10-14.[address] [facility] Comment on above: Performed By: #### F SBMET #### Unless otherwise noted, all testing performed by [place] [address] CLIA: [id number] Slate Picker: Twin Marley M.D. Hematocrit Volume Fraction (Bld) 44.6 % Normal 37.9-49.[address] [facility] Comment on above: Performed By: #### F SBMET #### Unless otherwise noted, all testing performed by [place] [address] CLIA: [id number] Slate Picker: Twin Marley M.D. Hemoglobin mass conc (Bld) 14.8 g/dL Normal 12.9-16.[address] [facility] Comment on above: Performed By: #### F SBMET #### Unless otherwise noted, all testing performed by [place] [address] CLIA: [id number] Slate Picker: Twin Marley M.D. Lymphocytes #/vol (Bld) 3.2 K/mcL Normal 0.9-3.6 O [facility] Comment on above: Performed By: #### F SBMET #### Unless otherwise noted, all testing performed by [place] [address] CLIA: [id number] Slate Picker: Twin Marley M.D. Lymphocytes/100 WBC (Bld) 35.8 % Normal [facility] Comment on above: Performed By: #### F SBMET #### Unless otherwise noted, all testing performed by [place] [address] CLIA: [id number] Slate Picker: Twin Marley M.D. MCH Entitic mass (RBC) 28.3 pg Normal 27.7-34.6 [facility] Comment on above: Performed By: #### F SBMET #### Unless otherwise noted, all testing performed by [place] [address] CLIA: [id number] Slate Picker: Twin Marley M.D. MCHC mass conc (RBC) 33.3 g/dL Normal 32.9-35.5 [facility] Comment on above: Performed By: #### F SBMET #### Unless otherwise noted, all testing performed by [place] [address] CLIA: [id number] Slate Picker: Twin Marley M.D. MCV Entitic volume (RBC) 84.9 fL Normal 82.8-99.[address] [facility] Comment on above: Performed By: #### F SBMET #### Unless otherwise noted, all testing performed by [place] [phone] CLIA: [id number] Slate Picker: Twin Marley M.D. Monocytes #/vol (Bld) 0.7 K/mcL High 0.2-0.6 [facility] [place] Comment on above: Performed By: #### F SBMET #### Unless otherwise noted, all testing performed by [place] [address] CLIA: [id number] Slate Picker: Twin Marley M.D. Monocytes/100 WBC (Bld) 7.7 % Normal [facility] Comment on above: Performed By: #### F SBMET #### Unless otherwise noted, all testing performed by [place] [address] CLIA: [id number] Slate Picker: Twin Marley M.D. Neutrophils #/vol (Bld) 4.2 K/mcL Normal 1.4-6.8 [facility] Comment on above: Performed By: #### F SBMET #### Unless otherwise noted, all testing performed by [place] [address] CLIA: [id number] Slate Picker: Twin Marley M.D. Platelet mean volume Entitic volume (Bld) 9.0 fL Normal 6.6-10.[address] [facility] Comment on above: Performed By: #### F SBMET #### Unless otherwise noted, all testing performed by [place] [phone] CLIA: [id number] Slate Picker: Twin Marley M.D. Platelets #/vol (Bld) 280 K/mcL Normal 139-354 [facility] [place] Comment on above: Performed By: #### F SBMET #### Unless otherwise noted, all testing performed by [place] [address] CLIA: [id number] Slate Picker: Twin Marley M.D. RBC #/vol (Bld) 5.25 M/mcL Normal 4.0-5.5 [facility] Comment on above: Performed By: #### F SBMET #### Unless otherwise noted, all testing performed by [place] [address] CLIA: [id number] Slate Picker: Twin Marley M.D. RBC morphology finding Nom (Bld) Normal Normal Normal [facility] Comment on above: Performed By: #### F SBMET #### Unless otherwise noted, all testing performed by [place] [address] CLIA: [id number] Slate Picker: Twin Marley M.D. Segmented Neut % 47.7 % Normal [facility] [place] [facility] Comment on above: Result Comment: Smea r reviewed to verify automated differential> Performed By: #### F SBMET #### Unless otherwise noted, all testing performed by [place] [address] CLIA: [id number] Slate Picker: Twin Marley M.D. WBC #/vol (Bld) 8.9 K/mcL Normal 3.6-10.4 [facility] Comment on above: Performed By: #### F SBMET #### Unless otherwise noted, all testing performed by [place] [address] CLIA: [id number] Slate Picker: Twin Marley M.D. Cardiac Troponin-Ion 09-24-2 018 Troponin I.cardiac mass conc ng/mL Normal < 45.[address] [facility] Comment on above: Result Comment: Elev ation [...] Unless otherwise noted, all testing performed by [place] [address] CLIA: [id number] Slate Picker: Twin Marley M.D. Troponin I.cardiac mass conc No Biomarker evidence of myocardial injury within the past [address] [facility] Comment on above: Performed By: #### P T #### Unless otherwise noted, all testing performed by [place] [address] CLIA: [id number] Slate Picker: Twin Marley M.D. Troponin I.cardiac mass conc No Biomarker evidence of myocardial injury within the past [address] [facility] Comment on above: Performed By: #### P T #### Unless otherwise noted, all testing performed by [place] [address] CLIA: [id number] Slate Picker: Twin Marley M.D. Troponin I.cardiac mass conc ng/mL Normal < 45.[address] [facility] Comment on above: Result Comment: Elev ation [...] Unless otherwise noted, all testing performed by [place] [address] CLIA: [id number] Slate Picker: Twin Marley M.D. D-Dimeron 09-24-2017 D-Dimer < 0.27 Normal < .[address] [facility] Comment on above: Result Comment: This test is intended for use in conjunction with a clinical pretest probability (PTP) assessment model to exclude pulmonary embolism (PE) and deep vein thrombosis (DVT) in outpatients suspected of PE or DVT. Performed By: #### F SBMET #### Unless otherwise noted, all testing performed by [place] [address] CLIA: [id number] Slate Picker: Twin Marley M.D. Magnesiumon 09-24-2017 Magnesium mass conc 2.2 mg/dL Normal 1.6-2.4 [facility] Comment on above: Performed By: #### P T #### Unless otherwise noted, all testing performed by [place] [address] CLIA: [id number] Slate Picker: Twin Marley M.D. Basic Metabolic Panelon 09-12 Calcium mass conc 8.3 mg/dL Low 8.4-10.2 [facility] Comment on above: Performed By: #### P T #### Unless otherwise noted, all testing performed by [place] [address] CLIA: [id number] Slate Picker: Twin Marley M.D. Chloride molar conc 109 mmol/L High 98-108 [facility] Comment on above: Performed By: #### P T #### Unless otherwise noted, all testing performed by [place] [address] CLIA: [id number] Slate Picker: Twin Marley M.D. CO2 molar conc 26 mmol/L Normal 21-[address] [facility] Comment on above: Performed By: #### P T #### Unless otherwise noted, all testing performed by [place] [address] CLIA: [id number] Slate Picker: Twin Marley M.D. Creatinine mass conc 1.12 mg/dL Normal 0.50-1.30 [facility] Comment on above: Performed By: #### P T #### Unless otherwise noted, all testing performed by [facility] [place] [address] CLIA: [id number] Slate Picker: Twin Marley M.D. GFR/1.73 sq M predicted among blacks MDRD vol rate/area (S/P/Bld) mL/min/{1.73_m2} Normal [facility] Comment on above: Result Comment: Afri can [employer] GFR Calc Performed By: #### P T #### Unless otherwise noted, all testing performed by [place] [address] CLIA: [id number] Slate Picker: Twin Marley M.D. GFR/1.73 sq M predicted among non-blacks MDRD vol rate/area (S/P/Bld) mL/min/{1.73_m2} Normal [facility] Comment on above: Result Comment: Non- [...] Unless otherwise noted, all testing performed by [place] [address] CLIA: [id number] Slate Picker: Twin Marley M.D. Glucose mass conc 94 mg/dL Normal 70-99 [facility] Comment on above: Result Comment: This test result might be falsely depressed or falsely elevated on samples drawn from patients taking Sulfasalazine and Sulfapyridine. Venipuncture should occur prior to taking either of these drugs. Performed By: #### P T #### Unless otherwise noted, all testing performed by [place] [address] CLIA: [id number] Slate Picker: Twin Marley M.D. Potassium molar conc 4.0 mmol/L Normal 3.5-5.1 [facility] Comment on above: Performed By: #### P T #### Unless otherwise noted, all testing performed by [place] [address] CLIA: [id number] Slate Picker: Twin Marley M.D. Sodium molar conc 140 mmol/L Normal 135-145 [facility] Comment on above: Performed By: #### P T #### Unless otherwise noted, all testing performed by [place] [address] CLIA: [id number] Slate Picker: Twin Marley M.D. Urea nitrogen mass conc 17 mg/dL Normal 8-25 O [facility] Comment on above: Performed By: #### P T #### Unless otherwise noted, all testing performed by [place] [address] CLIA: [id number] Slate Picker: Twin Marley M.D. CBC w/o Diffon 09-23-2017 Erythrocyte distribution width Ratio (RBC) 15.1 % High 10-14.[address] [facility] Comment on above: Performed By: #### P T #### Unless otherwise noted, all testing performed by [place] [address] CLIA: [id number] Slate Picker: Twin Marley M.D. Hematocrit Volume Fraction (Bld) 46.6 % Normal 37.9-49.[address] [facility] Comment on above: Performed By: #### P T #### Unless otherwise noted, all testing performed by [address] [address] CLIA: [id number] Slate Picker: Twin Marley M.D. Hemoglobin mass conc (Bld) 15.5 g/dL Normal 12.9-16.[address] [facility] Comment on above: Performed By: #### P T #### Unless otherwise noted, all testing performed by [place] [address] CLIA: [id number] Slate Picker: Twin Marley M.D. MCH Entitic mass (RBC) 28.2 pg Normal 27.7-34.6 [facility] Comment on above: Performed By: #### P T #### Unless otherwise noted, all testing performed by [place] [address] CLIA: [id number] Slate Picker: Twin Marley M.D. MCHC mass conc (RBC) 33.3 g/dL Normal 32.9-35.5 [facility] Comment on above: Performed By: #### P T #### Unless otherwise noted, all testing performed by [place] [address] CLIA: [id number] Slate Picker: Twin Marley M.D. MCV Entitic volume (RBC) 84.5 fL Normal 82.8-99.[address] [facility] Comment on above: Performed By: #### P T #### Unless otherwise noted, all testing performed by [place] [address] CLIA: [id number] Slate Picker: Twin Marley M.D. Platelet mean volume Entitic volume (Bld) 8.4 fL Normal 6.6-10.[address] [facility] Comment on above: Performed By: #### P T #### Unless otherwise noted, all testing performed by [place] [address] CLIA: [id number] Slate Picker: Twin Marley M.D. Platelets #/vol (Bld) 269 K/mcL Normal 139-354 [facility] [place] Comment on above: Performed By: #### P T #### Unless otherwise noted, all testing performed by [place] [address] CLIA: [id number] Slate Picker: Twin Marley M.D. RBC #/vol (Bld) 5.52 M/mcL High 4.0-5.5 [facility] Comment on above: Performed By: #### P T #### Unless otherwise noted, all testing performed by [place] [address] CLIA: [id number] Slate Picker: Twin Marley M.D. WBC #/vol (Bld) 11.3 K/mcL High 3.6-10.4 [facility] Comment on above: Performed By: #### P T #### Unless otherwise noted, all testing performed by [place] [address] CLIA: [id number] Slate Picker: Twin Marley M.D. CHEST (ONE VIEW ONLY)on 09-12 CHEST (ONE VIEW ONLY) Final Report Accession No: [id number] Performed: Sep 23 2017 4:18PM Examination: CHEST (ONE VIEW ONLY) PORTABLE CHEST: COMPARISON: Two-view chest from 09/11/2017. REASON FOR STUDY: Chest pain. REPORT: The lungs are clear and well aerated. No effusion, nodule or pneumothorax is noted. The diaphragm and bony elements are intact. No infiltrate is noted. IMPRESSION: Nonacute portable chest. Interpreting Physician: BI BAUER D.O. Trans: istumb : cc: Normal [facility] Cardiac Troponin-Ion 018 Troponin I.cardiac mass conc ng/mL Normal < 45.[address] [facility] Comment on above: Result Comment: Elev ation [...] Unless otherwise noted, all testing performed by [place] [address] CLIA: [id number] Slate Picker: Twin Marley M.D. Troponin I.cardiac mass conc No Biomarker evidence of myocardial injury within the past [address] [facility] Comment on above: Performed By: #### P T #### Unless otherwise noted, all testing performed by [place] [address] CLIA: [id number] Slate Picker: Twin Marley M.D. Cardiac Troponin-Ion 09-12 Troponin I.cardiac mass conc ng/mL Normal < [address] [facility] Comment on above: Result Comment: Elev ation [...] Unless otherwise noted, all testing performed by [place] [address] CLIA: [id number] Slate Picker: Twin Ayaka, M.D. History And Physical-Dictate jessica 09-23-2017 History And Physical-Dictated [facility] Blaine HOFFMANN. [place] [id number] NAME FERNANDO [facility] [id number] 1970 ADMIT HISTORY AND PHYSICAL CHIEF COMPLAINT Chest pain. HISTORY OF PRESENT ILLNESS 47-year-old male with past medical history of coronary disease, status post HI in 2012, with stent in 2014. Saw [...] Gastrointestinal prophylaxis. MD Pina PRADHAN 09/23/2017 20:41 [id number] T 09/23/2017 21:07 AFS/MODL Electronically Signed By Sofie Daigle M.D. on 27 Sep 2017 19:09:[address] [facility] Partial Thromboplastin Timeo n 09-23-2017 aPTT Coag time (Bld) 28 s Normal 23.0-34.0 [facility] Comment on above: Result Comment: Rosemary sauceda therapeutic range for PTT is 68-104 sec. Performed By: #### P T #### Unless otherwise noted, all testing performed by [place] [id number] CLIA: [id number] Slate Picker: Twin Marley M.D. Protimeon 09-23-2017 INR Coag RelTime (PPP) 0.94 {INR} Normal [facility] Comment on above: Result Comment: The [employer] recommended therapeutic range for Warfarin (Coumadin) therapy goals: PROPHYLAXIS/TREATMENT of: INR Venous Thrombosis, Pulmonary Embolism 2.0-3.0 Prevention of VTE (Orthopedic Surgery) 2.0-3.0 Atrial Fibrillation 2.0-3.0 Myocardial Infarction 2.0-3.0 Mechanical Prosthetic Heart Valves (Aortic position) 2.0-3.0 Mechanical Prosthetic Heart Valves (Mitral Position) 2.5-3.5 [employer] evidence-based clinical practice guidelines. CHEST. 2012 (9th ed) Performed By: #### E DCTNI, PTT, PT, CBCWOD, CHEM8 #### Unless otherwise noted, all testing performed by [place] [address] CLIA: [id number] Slate Picker: Twin Marley M.D. Prothrombin time (PT) Coag time (PPP) 12.2 s Normal 11.8-14.[address] [facility] Comment on above: Performed By: #### E DCTNI, PTT, PT, CBCWOD, CHEM8 #### Unless otherwise noted, all testing performed by [place] [address] CLIA: [id number] Slate Picker: Twin Marley M.D. Culture, Strep (Throat)on Culture, Strep (Throat) Test Name: Cultu re, Strep (Throat) Culture Status: Final Culture Report: No Group A streptococci isolated. Micro Source: Throat Normal [facility] Comment on above: Performed By: #### S TRCUL #### Unless otherwise noted, all testing performed by [place] [address] CLIA: [id number] Slate Picker: Twin Marley M.D. FS BNP (B-NatriureticPeptide )on 09-11-2017 Natriuretic peptide B mass conc (Bld) 51.5 pg/mL Normal < [address] [facility] Comment on above: Result Comment: BNP may be falsely elevated in patients taking ENTRESTO. Testing performed at [address]; [employer] Orion Gusman M.D. Performed By: #### F SBNP #### Unless otherwise noted, all testing performed by [place] [address] CLIA: [id number] Slate Picker: Twin Marley M.D. FS Basic Metabolic Panelon 0 09-11-2017 Calcium mass conc 9.2 mg/dL Normal 8.4-10.2 [facility] Comment on above: Performed By: #### F SBMET #### Unless otherwise noted, all testing performed by [place] [address] CLIA: [id number] Slate Picker: Twin Marley M.D. Chloride molar conc 107 mmol/L Normal 98-108 [facility] Comment on above: Performed By: #### F SBMET #### Unless otherwise noted, all testing performed by [place] [address] CLIA: [id number] Slate Picker: Twin Marley M.D. CO2 molar conc 26 mmol/L Normal 21-[address] [facility] Comment on above: Performed By: #### F SBMET #### Unless otherwise noted, all testing performed by [place] [phone] CLIA: [id number] Slate Picker: Twin Marley M.D. Creatinine mass conc 1.1 mg/dL Normal 0.50-1.30 [facility] Comment on above: Performed By: #### F SBMET #### Unless otherwise noted, all testing performed by [place] [phone] CLIA: [id number] Slate Picker: Twin Marley M.D. Glucose mass conc 96 mg/dL Normal 65-99 [facility] Comment on above: Performed By: #### F SBMET #### Unless otherwise noted, all testing performed by [place] [phone] CLIA: [id number] Slate Picker: Twin Marley M.D. Potassium molar conc 3.9 mmol/L Normal 3.5-5.1 [facility] Comment on above: Performed By: #### F SBMET #### Unless otherwise noted, all testing performed by [place] [address] CLIA: [id number] Slate Picker: Twin Marley M.D. Sodium molar conc 139 mmol/L Normal 135-145 [facility] Comment on above: Performed By: #### F SBMET #### Unless otherwise noted, all testing performed by [place] [address] CLIA: [id number] Slate Picker: Twin Marley M.D. Testing performed [facility] Comment on above: Result Comment: Test ing performed at [facility], [address] [place] [address]; [employer] Orion Gusman M.D. Performed By: #### F SBMET #### Unless otherwise noted, all testing performed by [place] [address] CLIA: [id number] Slate Picker: Twin Marley M.D. Urea nitrogen mass conc 15 mg/dL Normal 8-25 O [facility] Comment on above: Performed By: #### F SBMET #### Unless otherwise noted, all testing performed by [place] [address] CLIA: [id number] Slate Picker: Twin Marley M.D. FS CBCon 09-11-2017 Erythrocyte distribution width Ratio (RBC) 15.2 % High 11.6-14.[address] [facility] Comment on above: Performed By: #### F SCBC #### Unless otherwise noted, all testing performed by [place] [address] CLIA: [id number] Slate Picker: Twin Marley M.D. Hematocrit Volume Fraction (Bld) 43.2 % Normal 41.0-53.[address] [facility] Comment on above: Performed By: #### F SCBC #### Unless otherwise noted, all testing performed by [place] [address] CLIA: [id number] Slate Picker: Twin Marley M.D. Hemoglobin mass conc (Bld) 14.2 g/dL Normal 13.5-17.[address] [facility] Comment on above: Performed By: #### F SCBC #### Unless otherwise noted, all testing performed by [place] [phone] CLIA: [id number] Slate Picker: Twin Marley M.D. Lymphocytes #/vol (Bld) 4.2 K/mcL High 0.90-4.00 [facility] Comment on above: Performed By: #### F SCBC #### Unless otherwise noted, all testing performed by [place] [phone] CLIA: [id number] Slate Picker: Twin Marley M.D. Lymphocytes/100 WBC (Bld) 39.2 % Normal [facility] Comment on above: Performed By: #### F SCBC #### Unless otherwise noted, all testing performed by [place] [address] CLIA: [id number] Slate Picker: Twin Marley M.D. MCH Entitic mass (RBC) 28.4 pg Normal 26.0-34.0 [facility] Comment on above: Performed By: #### F SCBC #### Unless otherwise noted, all testing performed by [place] [address] CLIA: [id number] Slate Picker: Twin Marley M.D. MCHC mass conc (RBC) 32.9 g/dL Normal 31.0-37.0 [facility] Comment on above: Performed By: #### F SCBC #### Unless otherwise noted, all testing performed by [place] [address] CLIA: [id number] Slate Picker: Twin Marley M.D. MCV Entitic volume (RBC) 86.4 fL Normal 80-[address] [facility] Comment on above: Performed By: #### F SCBC #### Unless otherwise noted, all testing performed by [place] [address] CLIA: [id number] Slate Picker: Twin Marley M.D. Neutrophils #/vol (Bld) 5.4 K/mcL Normal 1.70-7.00 [facility] Comment on above: Performed By: #### F SCBC #### Unless otherwise noted, all testing performed by [place] [address] CLIA: [id number] Slate Picker: Twin Marley M.D. Platelet mean volume Entitic volume (Bld) 11.6 fL Normal 9.0-15.[address] [facility] Comment on above: Performed By: #### F SCBC #### Unless otherwise noted, all testing performed by [place] [address] CLIA: [id number] Slate Picker: Twin Marley M.D. Platelets #/vol (Bld) 271 K/mcL Normal 150-400 [facility] [place] Comment on above: Performed By: #### F SCBC #### Unless otherwise noted, all testing performed by [place] [address] CLIA: [id number] Slate Picker: Twin Marley M.D. RBC #/vol (Bld) 5.00 M/mcL Normal 4.50-5.90 [facility] Comment on above: Performed By: #### F SCBC #### Unless otherwise noted, all testing performed by [place] [address] CLIA: [id number] Slate Picker: Twin Marley M.D. Segmented Neut % 49.5 % Normal [facility] [place] [facility] Comment on above: Performed By: #### F SCBC #### Unless otherwise noted, all testing performed by [place] [address] CLIA: [id number] Slate Picker: Twin Marley M.D. Testing performed [facility] FSED Normal [facility] Comment on above: Result Comment: Test ing performed at [address]; [employer] Orion Gusman M.D. Performed By: #### F SCBC #### Unless otherwise noted, all testing performed by [place] [address] CLIA: [id number] Slate Picker: Twin Marley M.D. WBC #/vol (Bld) 10.8 K/mcL Normal 4.5-11.0 [facility] Comment on above: Performed By: #### F SCBC #### Unless otherwise noted, all testing performed by [address] [place], [place] [address] CLIA: [id number] Slate Picker: Twin Marley M.D. FS D-Dimeron 09-11-2017 FS D-Dimer < 100 Normal < [address] [facility] Comment on above: Result Comment: This test is used as an aid in the assessment and evaluation of patients suspected of having disseminated intravascular coagulation or thromboembolitic events including pulmonary embolism. It should not be used as absolute evidence of PE or DVT. Testing performed at [facility], [address] [place] [address]; [employer] Orion Gusman M.D. Performed By: #### F SDDIMR #### Unless otherwise noted, all testing performed by [place] [address] CLIA: [id number] Slate Picker: Twin Marley M.D. FS Pochi instrument alerton 09-11-2017 FS Pochi instrument alert Invalid Results Normal [facility] Comment on above: Result Comment: Poss ible interfering substances and/or clinically significant abnormalities that require smear review. Recommend re-draw, reordering as CBC w/Diff and sending to [facility] laboratory. Performed By: #### F SPOCHI #### Unless otherwise noted, all testing performed by [place] [address] CLIA: [id number] Slate Picker: Twin Marley M.D. FS Rapid Strep A Scrnon 08-14 S. pyogenes Ag IA Ql (Unsp spec) Negative Normal Negative [facility] Comment on above: Result Comment: Nega tive rapid antigen tests will be followed-up with a culture. Rapid test procedural control acceptable. Testing performed at [facility], [address] [place] [address]; [employer] Orion Gusman M.D. Performed By: #### F SSTREP #### Unless otherwise noted, all testing performed by [facility] [address] [facility]. [place], [place] [address] CLIA: [id number] Slate Picker: Twin Marley M.D. FS Troponin Ion 09-11-2017 Troponin I.cardiac mass conc ng/mL Normal < 0.[address] [facility] Comment on above: Result Comment: Test ing performed at [facility], [address] [place], [place] [id number]; [employer] Orion Gusman M.D. Performed By: #### F STROPI #### Unless otherwise noted, all testing performed by [place] [id number] CLIA: [id number] Slate Picker: Twin Marley M.D. Protimeon 09-11-2017 INR Coag RelTime (PPP) CANCEL PER [facility] ED, CREDIT FORM COMPLETED Normal [facility] Comment on above: Result Comment: Comm ent deleted 09/11/2017 18:47 by LEVONENNE: The [employer] recommended therapeutic range for Warfarin (Coumadin) therapy goals: PROPHYLAXIS/TREATMENT of: INR Venous Thrombosis, Pulmonary Embolism 2.0-3.0 Prevention of VTE (Orthopedic Surgery) 2.0-3.0 Atrial Fibrillation 2.0-3.0 Myocardial Infarction 2.0-3.0 Mechanical Prosthetic Heart Valves (Aortic position) 2.0-3.0 Mechanical Prosthetic Heart Valves (Mitral Position) 2.5-3.5 [employer] evidence-based clinical practice guidelines. CHEST. 2012 (9th ed) [employer] recommended therapeutic range for Warfarin (Coumadin) therapy goals: PROPHYLAXIS/TREATMENT of: INR Venous Thrombosis, Pulmonary Embolism 2.0-3.0 Prevention of VTE (Orthopedic Surgery) 2.0-3.0 Atrial Fibrillation 2.0-3.0 Myocardial Infarction 2.0-3.0 Mechanical Prosthetic Heart Valves (Aortic position) 2.0-3.0 Mechanical Prosthetic Heart Valves (Mitral Position) 2.5-3.5 [employer] evidence-based clinical practice guidelines. CHEST. 2012 (9th ed) Test INR with result of CANCEL PER [place] [facility], CREDIT FORM COMPLETED was originally reported as 1.1 and was changed on 09/11/2017 18:47 by JENN Performed By: #### P T #### Unless otherwise noted, all testing performed by [address] [address] CLIA: [id number] Slate Picker: Twin Marley M.D. Prothrombin time (PT) Coag time (PPP) CANCEL PER [place] [facility], CREDIT FORM COMPLETED Normal 11.8-14.[address] [facility] Comment on above: Result Comment: Test Protime with result of CANCEL PER [place] [facility], CREDIT FORM COMPLETED was originally reported as 9.6 and was changed on 09/11/2017 18:47 by JENN Performed By: #### P T #### Unless otherwise noted, all testing performed by [place] [id number] CLIA: [id number] Slate Picker: Twin Marley M.D. Blood Smear Reviewon 017 Blood Smear Review See Pathology Report. [facility] RBC morphology finding Nom (Bld) Normal Normal [facility] CBC and Differentialon 10-26 Basophils #/vol (Bld) 0.1 K/mcL 0 - 0.2 [facility] Basophils/100 WBC (Bld) 0.6 % [facility] Eosinophils #/vol (Bld) 0.8 K/mcL High 0 - 0.5 [facility] Eosinophils/100 WBC (Bld) 7.0 % [facility] Erythrocyte distribution width Ratio (RBC) 15.2 % High 10 - 14.3 % [facility] Hematocrit Volume Fraction (Bld) 46.0 % 37.9 - 49.2 % [facility] Hemoglobin mass conc (Bld) 15.3 g/dL 12.9 - 16.9 g/dL [facility] Interpretation and review of laboratory results Abnormal [facility] Lymphocytes #/vol (Bld) 3.9 K/mcL High 0.9 - 3.6 [facility] Lymphocytes/100 WBC (Bld) 36.3 % [facility] MCH Entitic mass (RBC) 27.6 pg Low 27.7 - 34.6 pg [facility] MCHC mass conc (RBC) 33.2 g/dL 32.9 - 35.5 g/dL [facility] MCV Entitic volume (RBC) 83.1 fL 82. 8 - 99.3 [facility] Monocytes #/vol (Bld) 0.7 K/mcL High 0.2 - 0.6 [facility] Monocytes/100 WBC (Bld) 6.9 % [facility] Neutrophils #/vol (Bld) 5.3 K/mcL 1.4 - 6.8 [facility] Platelet mean volume Entitic volume (Bld) 8.9 fL 6.6 - 10.8 [facility] Platelets #/vol (Bld) 260 K/mcL 139 - 354 [facility] RBC #/vol (Bld) 5.53 M/mcL High 4.0 - 5.5 [facility] Segmented Neut 49.2 % [facility] WBC #/vol (Bld) 10.8 K/mcL High 3.6 - 10.4 [facility] CRP, C-Reactive Proteinon CRP - Inflammation 15.2 mg/L High 0 - 10 mg/L [facility] LDHon 10-26-2016 LDH 158 U/L 100 - 250 U/L [facility] Sedimentation Rateon 017 Sed Rate 10 MM/hr. 0 - 15 [facility] CBC and Differentialon 10-12 Basophils #/vol (Bld) 0.1 K/mcL 0 - 0.2 [facility] Basophils/100 WBC (Bld) 0.6 % [facility] Eosinophils #/vol (Bld) 0.5 K/mcL 0 - 0.5 [facility] Eosinophils/100 WBC (Bld) 4.3 % [facility] Erythrocyte distribution width Ratio (RBC) 14.8 % High 10 - 14.3 % [facility] Hematocrit Volume Fraction (Bld) 48.0 % 37.9 - 49.2 % [facility] Hemoglobin mass conc (Bld) 15.8 g/dL 12.9 - 16.9 g/dL [facility] Interpretation and review of laboratory results Abnormal [facility] Lymphocytes #/vol (Bld) 4.6 K/mcL High 0.9 - 3.6 [facility] Lymphocytes/100 WBC (Bld) 36.3 % [facility] MCH Entitic mass (RBC) 27.5 pg Low 27.7 - 34.6 pg [facility] MCHC mass conc (RBC) 33.0 g/dL 32.9 - 35.5 g/dL [facility] MCV Entitic volume (RBC) 83.4 fL 82. 8 - 99.3 [facility] Monocytes #/vol (Bld) 1.0 K/mcL High 0.2 - 0.6 [facility] Monocytes/100 WBC (Bld) 8.2 % [facility] Neutrophils #/vol (Bld) 6.4 K/mcL 1.4 - 6.8 [facility] Platelet mean volume Entitic volume (Bld) 9.5 fL 6.6 - 10.8 [facility] Platelets #/vol (Bld) 252 K/mcL 139 - 354 [facility] RBC #/vol (Bld) 5.75 M/mcL High 4.0 - 5.5 [facility] Segmented Neut 50.6 % [facility] WBC #/vol (Bld) 12.7 K/mcL High 3.6 - 10.4 [facility] TSHon 10-12-2016 Thyrotropin Qn 1.58 uIU/mL 0.320 - 5.000 [facility] Vitamin B12 and Folateson Cobalamin (Vitamin B12) mass conc 375 pg/mL 193 - 986 pg/mL [facility] Folate 18.2 ng/mL High 3.1 - 17.5 ng/mL [facility] CBC and Differentialon 09-18 Basophils #/vol (Bld) 0.1 K/mcL 0 - 0.2 [facility] Basophils/100 WBC (Bld) 0.7 % [facility] Eosinophils #/vol (Bld) 0.5 K/mcL 0 - 0.5 [facility] Eosinophils/100 WBC (Bld) 5.7 % [facility] Erythrocyte distribution width Ratio (RBC) 14.8 % High 10 - 14.3 % [facility] Hematocrit Volume Fraction (Bld) 46.2 % 37.9 - 49.2 % [facility] Hemoglobin mass conc (Bld) 15.5 g/dL 12.9 - 16.9 g/dL [facility] Interpretation and review of laboratory results Abnormal [facility] Lymphocytes #/vol (Bld) 3.2 K/mcL 0.9 - 3.6 [facility] Lymphocytes/100 WBC (Bld) 33.3 % [facility] MCH Entitic mass (RBC) 27.9 pg 27.7 - 34.6 pg [facility] MCHC mass conc (RBC) 33.6 g/dL 32.9 - 35.5 g/dL [facility] MCV Entitic volume (RBC) 83.2 fL 82. 8 - 99.3 [facility] Monocytes #/vol (Bld) 0.7 K/mcL High 0.2 - 0.6 [facility] Monocytes/100 WBC (Bld) 7.3 % [facility] Neutrophils #/vol (Bld) 5.1 K/mcL 1.4 - 6.8 [facility] Platelet mean volume Entitic volume (Bld) 8.8 fL 6.6 - 10.8 [facility] Platelets #/vol (Bld) 252 K/mcL 139 - 354 [facility] RBC #/vol (Bld) 5.56 M/mcL High 4.0 - 5.5 [facility] Segmented Neut 53.0 % [facility] WBC #/vol (Bld) 9.6 K/mcL 3.6 - 10.4 [facility] Comprehensive Metabolic Pane sangeetha 09-18-2016 Albumin mass conc 4.4 g/dL 3.5 - 5 g/dL [facility] ALP enzyme act/vol 69 U/L 25 - 100 U/L [facility] ALT enzyme act/vol 22 U/L 10 - 40 U/L [facility] Comment on above: This test result urban ht be falsely depressed or falsely elevated on samples drawn from patients taking Sulfasalazine and Sulfapyridine. Venipuncture should occur prior to taking either of these drugs. AST enzyme act/vol 19 U/L 10 - 40 U/L [facility] Bilirubin mass conc 0.8 mg/dL 0.3 - 1. 2 mg/dL [facility] Calcium mass conc 9.4 mg/dL 8.4 - 10.2 mg/dL [facility] Chloride molar conc 106 mmol/L 99 - 111 mmol/L [facility] CO2 molar conc 25 mmol/L 23 - 32 mmol/L [facility] Creatinine mass conc 0.98 mg/dL 0.6 - 1 .2 mg/dL [facility] GFR/1.73 sq M predicted among blacks MDRD vol rate/area (S/P/Bld) mL/min/{1.73_m2} ml/min/1.7 3sq.m [facility] GFR/1.73 sq M predicted among non-blacks MDRD vol rate/area (S/P/Bld) mL/min/{1.73_m2} ml/min/1.7 3sq.m [facility] Comment on above: eGFR is an [...] 108 mg/dL High 70 - 99 mg/dL [facility] Potassium molar conc 4.3 mmol/L 3.5 - 5 .1 mmol/L [facility] Protein mass conc 6.9 g/dL 6.4 - 8.3 g/dL [facility] Sodium molar conc 139 mmol/L 136 - 145 mmol/L [facility] Urea nitrogen mass conc 16 mg/dL 6 - 20 mg/dL [facility] Lipid Panelon 09-18-2016 Cholesterol in HDL mass conc 43 mg/dL 28 - 75 mg/dL [facility] Cholesterol in LDL mass conc 105 mg/dL <130 [facility] Cholesterol in VLDL mass conc 30 mg/dL 5 - 40 mg/dL [facility] Cholesterol mass conc 178 mg/dL 112 - 200 mg/dL [facility] Cholesterol.total/Choles terol in HDL mass ratio 4.1 {ratio} 3.3 - 5.0 [facility] Comment on above: Male Coronary Heart Disease Risk Factor (CHDRF): Average risk= 5.0 1/2 Average risk= 3.4 2 times Average risk= 9.6 Triglyceride mass conc 151 mg/dL High 35 - 150 mg/dL [facility] T4, Freeon 09-18-2016 T4 free mass conc 1.37 ng/dL 0.76 - 1.79 ng/dL [facility] TSHon 09-18-2016 Thyrotropin Qn 0.714 uIU/mL 0.350 - 5.500 [facility] Comment on above: Please note that [...] 18:38-0400 Diastolic blood pressure 94 mm[Hg] DO aJsen OrellanaEvena Medical Work Phone: [facility] 12-07-2022 18:38-0400 Heart rate 95 /min DO Jasen Copier [employer] Work Phone: [facility] 12-07-2022 18:38-0400 Respiratory rate 20 /min DO Jasen OrellanaEvena Medical Work Phone: [facility] 12-07-2022 18:38-0400 SaO2% (BldA) [Mass fraction] 94 % DO Jasen Campbell Work Phone: [facility] 12-07-2022 18:38-0400 Systolic blood pressure 172 mm[Hg] DO Jasen Campbell Work Phone: [facility] 12-07-2022 14:28-0400 Body temperature 98.4 [degF] DO Jasen Campbell Work Phone: [facility] 12-07-2022 13:37-0400 Body height 167.64 cm DO Jasen Campbell Work Phone: [facility] 12-07-2022 13:37-0400 Body weight 113.8 kg DO Jasen Campbell Work Phone: [facility] 12-27-2021 07:16-0500 Body height 165.1 cm Moises Patel MD Work Phone: [facility] 12-27-2021 07:16-0500 Body mass index (BMI) [Ratio] 42.7 kg/m2 Moises Patel MD Work Phone: [facility] [employer] [facility] 12-27-2021 07:16-0500 Body weight 116.39 kg [facility]ises [facility]el [facility] 12-27-2021 07:16-0500 Diastolic blood pressure 88 mm[Hg] Moises Patel MD Work Phone: [employer] [facility] 12-27-2021 07:16-0500 Heart rate 75 /min Moises Patel MD Work Phone: [employer] [facility] 12-27-2021 07:16-0500 SaO2% (BldA) [Mass fraction] 95 % Moises Patel MD Work Phone: [employer] 12-27-2021 07:16-0500 Systolic blood pressure 132 mm[Hg] Moises Patel MD Work Phone: [employer] [facility] 09-15-2020 09:03-0400 Body height 165.1 cm Moises Patel MD Work Phone: [employer] 09-15-2020 09:03-0400 Body mass index (BMI) [Ratio] 47.93 kg/m2 Moises Patel MD Work Phone: [employer] [facility] 09-15-2020 09:03-0400 Body temperature 97.81 [degF] Moises Patel MD Work Phone: [employer] [facility] 09-15-2020 09:03-0400 Body weight 130.64 kg Moises Patel MD Work Phone: [employer] [facility] 09-15-2020 09:03-0400 Diastolic blood pressure 92 mm[Hg] Moises Patel MD Work Phone: [employer] [facility] 09-15-2020 09:03-0400 Heart rate 80 /min Moises Patel MD Work Phone: [employer] [facility] 09-15-2020 09:03-0400 SaO2% (BldA) [Mass fraction] 94 % Moises Patel MD Work Phone: [employer] [facility] 09-15-2020 09:03-0400 Systolic blood pressure 138 mm[Hg] Moises Patel MD Work Phone: [employer] 06-02-2020 08:21-0400 Body height 167.6 cm Anita Rowland MD Work Phone: [facility] 06-02-2020 08:21-0400 Body mass index (BMI) [Ratio] 46 kg/m2 Anita Rowland MD Work Phone: [facility] 06-02-2020 08:21-0400 Body weight 129.28 kg Anita Rowland MD Work Phone: [facility] 06-02-2020 08:12-0400 Body temperature 98.01 [degF] Anita Rowland MD Work Phone: [facility] 06-02-2020 08:12-0400 Diastolic blood pressure 82 mm[Hg] Anita Rowland MD Work Phone: [facility] 06-02-2020 08:12-0400 Heart rate 74 /min Anita Rowland MD Work Phone: [facility] 06-02-2020 08:12-0400 Respiratory rate 16 /min Anita Rowland MD Work Phone: [facility] 06-02-2020 08:12-0400 SaO2% (BldA) [Mass fraction] 93 % Anita Rowland MD Work Phone: [facility] 06-02-2020 08:12-0400 Systolic blood pressure 117 mm[Hg] Anita Rowland MD Work Phone: [facility] 05-28-2020 16:05-0400 Body height 167.6 cm Anita Rowland MD Work Phone: [facility] 05-28-2020 16:05-0400 Body mass index (BMI) [Ratio] 43.28 kg/m2 Anita Rowland MD Work Phone: [facility] 05-28-2020 16:05-0400 Body weight 121.56 kg Anita Rowland MD Work Phone: [facility] 05-28-2020 16:05-0400 Diastolic blood pressure 88 mm[Hg] Anita Rowland MD Work Phone: [facility] 05-28-2020 16:05-0400 Heart rate 78 /min Anita Rowland MD Work Phone: [facility] 05-28-2020 16:05-0400 SaO2% (BldA) [Mass fraction] 96 % Anita Rowland MD Work Phone: [facility] 05-28-2020 16:05-0400 Systolic blood pressure 149 mm[Hg] Anita Rowland MD Work Phone: [facility] 05-28-2020 07:59-0400 Body height 167.6 cm Anita Rowland MD Work Phone: [facility] 05-28-2020 07:59-0400 Body mass index (BMI) [Ratio] 42.01 kg/m2 Anita Rowland MD Work Phone: [facility] 05-28-2020 07:59-0400 Body weight 118 kg Anita Rowland MD Work Phone: [facility] 05-28-2020 07:59-0400 Diastolic blood pressure 79 mm[Hg] Anita Rowland MD Work Phone: [facility] 05-28-2020 07:59-0400 Heart rate 80 /min Anita Rowland MD Work Phone: [facility] 05-28-2020 07:59-0400 Systolic blood pressure 123 mm[Hg] Anita Rowland MD Work Phone: [facility] 10-16-2019 15:34-0400 BP Diastolic 90 mm[Hg] [facility] 10-16-2019 15:34-0400 BP Systolic 137 mm[Hg] [facility] 10-16-2019 15:34-0400 Pulse (Heart Rate) 102 /min [facility] 10-16-2019 15:34-0400 Pulse Oximetry 100 % [facility] 10-16-2019 12:05-0400 Body Temperature 97.59 [degF] [facility] 10-16-2019 12:05-0400 Respiratory Rate 16 /min [facility] 10-16-2019 01:23-0400 BMI (Body Mass Index) 41.99 kg/m2 [facility] 10-16-2019 01:23-0400 Body weight 118 kg [facility] 10-16-2019 01:23-0400 Height 167.6 cm [facility] 10-15-2019 14:06-0400 BMI (Body Mass Index) 42.79 kg/m2 Anita Rowland [facility] 10-15-2019 14:06-0400 Body weight 120.25 kg Anita Etiennedavid [facility] 10-15-2019 14:06-0400 BP Diastolic 85 mm[Hg] Anita Jaimiedavid [facility] 10-15-2019 14:06-0400 BP Systolic 142 mm[Hg] Anita Jaimiedavid [facility] 10-15-2019 14:06-0400 Height 167.6 cm Anita Eatdavid [facility] 10-15-2019 14:06-0400 Pulse (Heart Rate) 83 /min Anita Rowland [facility] 10-15-2019 14:06-0400 Pulse Oximetry 95 % Anita Rowland [facility] 09-23-2019 13:07-0400 BP Diastolic 104 mm[Hg] [facility] 09-23-2019 13:07-0400 BP Systolic 155 mm[Hg] [facility] 09-23-2019 13:07-0400 Pulse (Heart Rate) 65 /min [facility] 09-23-2019 13:01-0400 Pulse Oximetry 97 % [facility] 09-23-2019 11:28-0400 Respiratory Rate 16 /min [facility] 09-23-2019 08:44-0400 Body Temperature 97.81 [degF] [facility] 09-22-2019 12:02-0400 BMI (Body Mass Index) 43.66 kg/m2 [facility] 09-22-2019 12:02-0400 Body weight 122.7 kg [facility] 09-22-2019 12:02-0400 Height 167.6 cm [facility] 04-03-2019 15:09-0500 BMI (Body Mass Index) 41.97 kg/m2 [facility] 04-03-2019 15:09-0500 Body weight 117.94 kg [facility] 04-03-2019 15:09-0500 BP Diastolic 85 mm[Hg] [facility] 04-03-2019 15:09-0500 BP Systolic 130 mm[Hg] [facility] 04-03-2019 15:09-0500 Height 167.6 cm [facility] 04-03-2019 15:09-0500 Pulse (Heart Rate) 86 /min [facility] 04-03-2019 15:09-0500 Pulse Oximetry 95 % [facility] 03-11-2019 08:19-0500 BP Diastolic 66 mm[Hg] Torie Westbrook [facility] 03-11-2019 08:19-0500 BP Systolic 122 mm[Hg] Torie Abbottluba [facility] 02-26-2019 13:19-0500 BMI (Body Mass Index) 38.82 kg/m2 [facility] 02-26-2019 13:19-0500 Body Temperature 98.4 [degF] [facility] 02-26-2019 13:19-0500 Body weight 109.09 kg [facility] 02-26-2019 13:19-0500 BP Diastolic 88 mm[Hg] [facility] 02-26-2019 13:19-0500 BP Systolic 129 mm[Hg] [facility] 02-26-2019 13:19-0500 Height 167.6 cm [facility] 02-26-2019 13:19-0500 Pulse (Heart Rate) 93 /min [facility] 02-26-2019 13:19-0500 Pulse Oximetry 93 % [facility] 02-26-2019 13:19-0500 Respiratory Rate 16 /min [facility] 02-26-2019 00:00-0500 BP Diastolic 78 mm[Hg] [facility] 02-26-2019 00:00-0500 BP Systolic 122 mm[Hg] [facility] 02-26-2019 00:00-0500 Pulse (Heart Rate) 79 /min [facility] 02-26-2019 00:00-0500 Pulse Oximetry 97 % [facility] 02-26-2019 00:00-0500 Respiratory Rate 18 /min [facility] 02-25-2019 20:32-0500 BMI (Body Mass Index) 38.25 kg/m2 [facility] 02-25-2019 20:32-0500 Body Temperature 98.01 [degF] [facility] 02-25-2019 20:32-0500 Body weight 107.5 kg [facility] 02-25-2019 20:32-0500 Height 167.6 cm [facility] 02-21-2019 09:10-0500 BMI (Body Mass Index) 39.22 kg/m2 [facility] 02-21-2019 09:10-0500 Body Temperature 97.81 [degF] [facility] 02-21-2019 09:10-0500 Body weight 110.22 kg [facility] 02-21-2019 09:10-0500 BP Diastolic 84 mm[Hg] Kristin Walker [facility] 02-21-2019 09:10-0500 BP Systolic 128 mm[Hg] Kristin Walker [facility] 02-21-2019 09:10-0500 Height 167.6 cm [facility] 02-21-2019 09:10-0500 Pulse (Heart Rate) 77 /min [facility] 02-21-2019 09:10-0500 Pulse Oximetry 97 % [facility] 02-13-2019 09:07-0500 BMI (Body Mass Index) 39.38 kg/m2 [facility] 02-13-2019 09:07-0500 Body Temperature 97.5 [degF] [facility] 02-13-2019 09:07-0500 Body weight 110.68 kg [facility] 02-13-2019 09:07-0500 BP Diastolic 78 mm[Hg] [facility] 02-13-2019 09:07-0500 BP Systolic 115 mm[Hg] [facility] 02-13-2019 09:07-0500 Height 167.6 cm [facility] 02-13-2019 09:07-0500 Pulse (Heart Rate) 76 /min [facility] 02-13-2019 09:07-0500 Pulse Oximetry 95 % [facility] 02-06-2019 13:05-0500 BMI (Body Mass Index) 39.59 kg/m2 [facility] 13:05-0500 Body Temperature 98.2 [degF] Jacob [facility] 02-06-2019 13:05-0500 Body weight 111.27 kg [facility] 02-06-2019 13:05-0500 BP Diastolic 81 mm[Hg] [facility] 02-06-2019 13:05-0500 BP Systolic 124 mm[Hg] [facility] 13:05-0500 Height 167.6 cm Jacob [facility] 02-06-2019 13:05-0500 Pulse (Heart Rate) 97 /min Jacob [facility] 02-06-2019 13:05-0500 Pulse Oximetry 95 % Jacob Cam [facility] 02-06-2019 13:05-0500 Respiratory Rate 17 /min Jacob Cam [facility] 02-04-2019 07:45-0500 Body Temperature 98.1 [degF] [facility] 02-04-2019 07:45-0500 BP Diastolic 91 mm[Hg] [facility] 02-04-2019 07:45-0500 BP Systolic 129 mm[Hg] [facility] 02-04-2019 07:45-0500 Pulse (Heart Rate) 90 /min [facility] 02-04-2019 07:45-0500 Pulse Oximetry 94 % [facility] 02-04-2019 07:45-0500 Respiratory Rate 16 /min [facility] 02-04-2019 05:58-0500 BMI (Body Mass Index) 38.8 kg/m2 [facility] 02-04-2019 05:58-0500 Body weight 109.05 kg [facility] 02-02-2019 18:07-0500 Height 167.6 cm [facility] 02-02-2019 12:08-0500 Respiratory rate 0 /min [facility] 01-31-2019 09:19-0500 BMI (Body Mass Index) 40.66 kg/m2 [facility] 01-31-2019 09:19-0500 Body Temperature 98.1 [degF] [facility] 01-31-2019 09:19-0500 Body weight 114.26 kg [facility] 01-31-2019 09:19-0500 BP Diastolic 89 mm[Hg] Kristin Walker [facility] 01-31-2019 09:19-0500 BP Systolic 123 mm[Hg] Kristin Walker [facility] 01-31-2019 09:19-0500 Height 167.6 cm Krist[facility] 01-31-2019 09:19-0500 Pulse (Heart Rate) 93 /min [facility] 01-31-2019 09:19-0500 Pulse Oximetry 94 % [facility] 01-31-2019 09:19-0500 Respiratory Rate 16 /min [facility] 01-29-2019 11:46-0500 Body Temperature 97.81 [degF] [facility] 01-29-2019 11:46-0500 BP Diastolic 78 mm[Hg] [facility] 01-29-2019 11:46-0500 BP Systolic 135 mm[Hg] [facility] 01-29-2019 11:46-0500 Pulse (Heart Rate) 83 /min [facility] 01-29-2019 11:46-0500 Pulse Oximetry 95 % [facility] 01-29-2019 11:46-0500 Respiratory Rate 18 /min [facility] 01-29-2019 05:40-0500 BMI (Body Mass Index) 39.86 kg/m2 [facility] 01-29-2019 05:40-0500 Body weight 112.5 kg [facility] Comment on above: standing scale 01-25-2019 13:34-0500 Respiratory rate 0 /min [facility] 01-24-2019 13:25-0500 Respiratory rate 0 /min [facility] 01-24-2019 11:46-0500 Respiratory rate 12 /min [facility] 01-24-2019 10:43-0500 Respiratory rate 12 /min [facility] 01-24-2019 05:00-0500 Height 168 cm [facility] 01-20-2019 10:22-0500 Respiratory rate 0 /min [facility] 01-04-2019 16:55-0500 BMI (Body Mass Index) 40.35 kg/m2 [facility] 01-04-2019 16:55-0500 Body Temperature 97.9 [degF] [facility] 01-04-2019 16:55-0500 Body weight 113.4 kg [facility] 01-04-2019 16:55-0500 BP Diastolic 88 mm[Hg] [facility] 01-04-2019 16:55-0500 BP Systolic 137 mm[Hg] [facility] 01-04-2019 16:55-0500 Height 167.6 cm [facility] 01-04-2019 16:55-0500 Pulse (Heart Rate) 79 /min [facility] 01-04-2019 16:55-0500 Pulse Oximetry 98 % [facility] 01-04-2019 16:55-0500 Respiratory Rate 14 /min [facility] 12-26-2018 15:50-0500 BMI (Body Mass Index) 40.51 kg/m2 [facility] 12-26-2018 15:50-0500 Body weight 113.85 kg [facility] 12-26-2018 15:50-0500 BP Diastolic 87 mm[Hg] [facility] 12-26-2018 15:50-0500 BP Systolic 125 mm[Hg] [facility] 12-26-2018 15:50-0500 Height 167.6 cm [facility] 12-26-2018 15:50-0500 Pulse (Heart Rate) 98 /min [facility] 12-26-2018 15:50-0500 Pulse Oximetry 97 % [facility] 09-27-2018 22:00-0400 BP Diastolic 96 mm[Hg] [facility] 09-27-2018 22:00-0400 BP Systolic 146 mm[Hg] [facility] 09-27-2018 22:00-0400 Pulse (Heart Rate) 91 /min [facility] 09-27-2018 22:00-0400 Respiratory Rate 26 /min [facility] 09-27-2018 19:30-0400 Pulse Oximetry 95 % [facility] 09-27-2018 19:07-0400 BMI (Body Mass Index) 37.12 kg/m2 [facility] 09-27-2018 19:07-0400 Body Temperature 98.49 [degF] [facility] 09-27-2018 19:07-0400 Body weight 104.33 kg [facility] 09-27-2018 19:07-0400 Height 167.6 cm [facility] 01-07-2018 10:29-0500 BMI (Body Mass Index) 37.93 kg/m2 Patricia Louis [facility] 01-07-2018 10:29-0500 BP Diastolic 80 mm[Hg] Patricia Sruthi [facility] 01-07-2018 10:29-0500 BP Systolic 124 mm[Hg] Patricia Louis [facility] 01-07-2018 10:29-0500 Height 167.6 cm Patricia Louis [facility] 01-07-2018 10:29-0500 Pulse (Heart Rate) 78 /min Patricia Bowersx [facility] 01-07-2018 10:29-0500 Pulse Oximetry 96 % Patricia Bowersx [facility] 01-07-2018 10:29-0500 Weight 106.59 kg Patricia Louis [facility] 09-20-2017 15:31-0400 BMI (Body Mass Index) 36.48 kg/m2 Patricia Bowersx [facility] 09-20-2017 15:31-0400 BP Diastolic 80 mm[Hg] Patricia Sruthi [facility] 09-20-2017 15:31-0400 BP Systolic 145 mm[Hg] Patricia Sruthi [facility] 09-20-2017 15:31-0400 Height 167.6 cm Patricia Bowersx [facility] 09-20-2017 15:31-0400 Pulse (Heart Rate) 72 /min Patricia Louis [facility] 09-20-2017 15:31-0400 Pulse Oximetry 95 % Patricia Louis [facility] 09-20-2017 15:31-0400 Weight 102.51 kg Patricia Louis [facility] 12-08-2016 11:05-0400 BMI (Body Mass Index) 34.33 kg/m2 Bev Tolentino [facility] Work Phone: 12-08-2016 11:05-0400 BP Diastolic 96 mm[Hg] Bev Exten [facility] Work Phone: 12-08-2016 11:05-0400 BP Systolic 143 mm[Hg] Bev Exten [facility] Work Phone: 12-08-2016 11:05-0400 Height 167.6 cm Bev Tolentino [facility] Work Phone: 12-08-2016 11:05-0400 Pulse (Heart Rate) 69 /min Bev Exten [facility] Work Phone: 12-08-2016 11:05-0400 Weight 96.48 kg Bev Tolentino [employer] Work Phone: 11-23-2016 10:32-0400 BMI (Body Mass Index) 32.51 kg/m2 Bev Tolentino [employer] Work Phone: 11-23-2016 10:32-0400 BP Diastolic 93 mm[Hg] Bev Tolentino [employer] Work Phone: 11-23-2016 10:32-0400 BP Systolic 121 mm[Hg] Bev Tolentino [employer] Work Phone: 11-23-2016 10:32-0400 Height 170.2 cm Bev Tolentino [employer] Work Phone: 11-23-2016 10:32-0400 Pulse (Heart Rate) 78 /min Bev Tolentino [employer] Work Phone: 11-23-2016 10:32-0400 Weight 94.17 kg Bev Tolentino [employer] Work Phone: 11-02-2016 10:00-0400 BMI (Body Mass Index) 34.07 kg/m2 Bev Tolentino [employer] Work Phone: 11-02-2016 10:00-0400 BP Diastolic 92 mm[Hg] Bev Tolentino [employer] Work Phone: 11-02-2016 10:00-0400 BP Systolic 135 mm[Hg] Bev Tolentino [employer] Work Phone: 11-02-2016 10:00-0400 Height 167.6 cm Bev Tolenitno [employer] Work Phone: 11-02-2016 10:00-0400 Pulse (Heart Rate) 63 /min Bev Tolentino [employer] Work Phone: 11-02-2016 10:00-0400 Weight 95.75 kg Bev Tolentino [employer] Work Phone: 10-26-2016 14:00-0400 Body mass index (BMI) [Ratio] Bev Tolentino [facility] 10-26-2016 09:58-0400 BMI (Body Mass Index) 35.72 kg/m2 Bev Tolentino [employer] Work Phone: 10-26-2016 09:58-0400 BP Diastolic 88 mm[Hg] Bev Tolentino [employer] Work Phone: 10-26-2016 09:58-0400 BP Systolic 133 mm[Hg] Bev Tolentino [employer] Work Phone: 10-26-2016 09:58-0400 Height 167.6 cm Bev Tolentino [employer] Work Phone: 10-26-2016 09:58-0400 Pulse (Heart Rate) 68 /min Bev Tolentino [employer] Work Phone: 10-26-2016 09:58-0400 Weight 100.38 kg Bev Tolentino [employer] Work Phone: 09-18-2016 08:56-0400 BMI (Body Mass Index) 33.89 kg/m2 Patricia Louis [employer] Work Phone: 09-18-2016 08:56-0400 BP Diastolic 76 mm[Hg] Patricia Sruthi [employer] Work Phone: 09-18-2016 08:56-0400 BP Systolic 124 mm[Hg] Patricia Louis [employer] Work Phone: 09-18-2016 08:56-0400 Height 167.6 cm Patricia Louis [employer] Work Phone: 09-18-2016 08:56-0400 Pulse (Heart Rate) 68 /min Patricia Sruthi [employer] Work Phone: 09-18-2016 08:56-0400 Pulse Oximetry 94 % Patricia Sruthi [employer] Work Phone: 09-18-2016 08:56-0400 Weight 95.25 kg Patricia Bowersx [employer] Work Phone: Encounters Encounter Date Encounter Type Care Provider Facility Start: 12-07-2022 End: 12-07-2022 Emergency department patient visit Jasen Campbell Facility:[facility] Start: 12-07-2022 End: 12-07-2022 Emergency department patient visit DO Jasen Campbell Work Phone: [facility] Work Phone: Start: 06-20-2022 End: 06-20-2022 Emergency department patient visit MOISES AGUILERA AMANDA [facility] Start: 06-01-2022 Refill Anita Rowland MD Work Phone: [facility] Comment on above: Medication Refill Start: 03-06-2022 Documentation procedure Cassia hernandez MA [facility] Start: 02-14-2022 Refill Tiffany Leo RN [facility] Comment on above: Medication Refill Start: 01-22-2022 Refill Anita Rowland MD Work Phone: [facility] Comment on above: Medication Refill Start: 12-27-2021 [facility] Start: 12-27-2021 End: 12-27-2021 Office outpatient visit 25 minutes Moises Patel MD Work Phone: [facility] Comment on above: Inadequately control led diabetes mellitus (Primary Dx); Insomnia, unspecified type Start: 11-06-2021 End: 11-09-2021 Evaluation and management of inpatient [facility] Start: 10-30-2021 End: 10-30-2021 Emergency department patient visit MOISES AGUILERA [facility] Start: 10-23-2021 Refill Anita Rowland MD Work Phone: [facility] Comment on above: Medication Refill Start: 10-21-2021 Refill Anita Rowland MD Work Phone: [facility] Comment on above: Medication Refill Start: 10-19-2021 Refill Anita Rowland MD Work Phone: [facility] Comment on above: Medication Refill Start: 10-11-2021 Refill Anita Rowland MD Work Phone: [facility] Comment on above: Medication Refill Start: 07-06-2021 Refill Tiffany Leo RN [facility] Comment on above: Medication Refill Start: 05-23-2021 Refill Anita Rowland MD Work Phone: [facility] Comment on above: Medication Refill Start: 03-28-2021 ambulatory MELINDA TERRELL FERNANDEZ [facility] Start: 01-17-2021 Refill Tiffany Leo RN [facility] Comment on above: Medication Refill Start: 09-15-2020 End: 09-15-2020 Office outpatient visit 25 minutes Moises Patel MD Work Phone: [facility] Comment on above: Chronic obstructive pulmonary disease with acute exacerbation (Primary Dx); COPD with acute exacerbation Start: 08-19-2020 End: 08-19-2020 Refill Tiffany Leo RN [facility] Comment on above: Medication Refill Start: 08-06-2020 End: 08-06-2020 Refill Anita Rowland MD Work Phone: [facility] Comment on above: Medication Refill Start: 08-06-2020 End: 08-06-2020 Subsequent hospital visit by physician Anita Rowland MD Work Phone: [facility] Comment on above: Arrived Start: 06-10-2020 End: 06-10-2020 ambulatory MOISES PATEL [facility] Start: 06-10-2020 End: 06-10-2020 Clinical Support Cassandra Stewart RN [facility] Comment on above: Other specified comp lications of surgical and medical care, not elsewhere classified, initial encounter (Primary Dx) Arrived Medication Refill Start: 06-02-2020 End: 06-02-2020 Subsequent hospital visit by physician Anita Rowland MD Work Phone: [facility] Start: 05-28-2020 End: 06-01-2020 ambulatory ANITA ROWLAND [facility] Start: 05-28-2020 End: 05-28-2020 Office outpatient visit 40 minutes Anita Rowland MD Work Phone: [facility] Comment on above: Essential hypertensi on (Primary Dx); Mixed hyperlipidemia; Coronary artery disease involving [place] coronary artery of [place] heart without angina pectoris; PAD (peripheral artery disease) (HCC); Centrilobular emphysema (HCC); ISAC (obstructive sleep apnea); Nicotine abuse; Pre-procedure lab exam; Abnormal stress test Start: 05-28-2020 End: 05-28-2020 Patient encounter status Anita Rowland MD Work Phone: [facility] Start: 05-28-2020 End: 05-28-2020 Subsequent hospital visit by physician Aniat Rowland MD Work Phone: [facility] Comment on above: Arrived Start: 05-23-2020 End: 05-23-2020 Patient encounter procedure MOISES [facility] Start: 05-18-2020 End: 05-18-2020 Orders Only Tiffany Leo [facility] Comment on above: Pre-procedure lab ex am (Primary Dx) Start: 04-21-2020 End: 04-21-2020 Orders Only Alicja Nieves Work Phone: [facility] Start: 04-13-2020 End: 04-13-2020 Refill Tiffany Leo [facility] Comment on above: Medication Refill Start: 04-12-2020 End: 04-12-2020 Refill Rubi Pratt [facility] Comment on above: Medication Refill Start: 12-05-2019 End: 12-05-2019 Patient encounter procedure MOISES AGUILERA [facility] Start: 10-17-2019 End: 10-17-2019 Documentation procedure Rubi Pratt [facility] Start: 10-16-2019 End: 10-16-2019 Subsequent hospital visit by physician Anita Rowland Work Phone: [facility] Comment on above: TIA (transient ische gustavo attack) Start: 10-15-2019 End: 10-16-2019 Emergency department patient visit Andreas Barfield Work Phone: [facility] Med [facility]urg Comment on above: Near syncope (Primar y Dx) Start: 10-15-2019 End: 10-15-2019 Office outpatient visit 25 minutes Anita Rowland Work Phone: [facility] Comment on above: TIA (transient ische gustavo attack) (Primary Dx); Essential hypertension; Mixed hyperlipidemia; Coronary artery disease involving [place] coronary artery of [place] heart without angina pectoris; Centrilobular emphysema (HCC); ISAC on CPAP; Nicotine abuse Start: 09-22-2019 Patient encounter procedure MOISES AGUILERA [facility] Start: 09-22-2019 End: 09-23-2019 Emergency department patient visit Ana Ruizjanki Weaver Work Phone: [facility] Intermediate Comment on above: Acute CVA (cerebrova scular accident) (HCC) (Primary Dx) Start: 04-03-2019 End: 04-03-2019 Office outpatient visit 15 minutes Carlo Mercedes Work Phone: [facility] Comment on above: Medication managemen t (Primary Dx); Coronary artery disease, angina presence unspecified, unspecified vessel or lesion type, unspecified whether [place] or transplanted heart Start: 03-17-2019 End: 03-17-2019 Patient encounter procedure Carlo Mercedes Work Phone: [facility] Comment on above: S/P CABG (coronary a rtery bypass graft) (Primary Dx) Start: 03-13-2019 End: 03-13-2019 Subsequent hospital visit by physician Carlo Mercedes Work Phone: [facility] Comment on above: Arrived Start: 03-11-2019 End: 03-11-2019 Patient encounter procedure Kristin Walker Work Phone: [facility] Comment on above: S/P CABG (coronary a rtery bypass graft) (Primary Dx) Start: 03-10-2019 Refill Kristin lopez PA-C Work Phone: [facility] Comment on above: Medication Refill Start: 03-05-2019 End: 03-05-2019 Documentation procedure Kristinkyler Walker Work Phone: [facility] Start: 02-26-2019 End: 02-26-2019 Postop follow up visit related to original px Kristin Walkergabrielle Walker Work Phone: [facility] Comment on above: S/P CABG (coronary a rtery bypass graft) (Primary Dx) Start: 02-25-2019 End: 02-26-2019 Emergency department patient visit Fausto Alejandro Work Phone: [facility] Emergency Department Comment on above: Pleuritic chest pain (Primary Dx) Start: 02-21-2019 End: 02-21-2019 Postop follow up visit related to original px Kristin Machuca Alphonse Work Phone: [facility] Comment on above: S/P CABG (coronary a rtery bypass graft) (Primary Dx) Start: 02-21-2019 End: 02-21-2019 Subsequent hospital visit by physician Jacob Cam Work Phone: [facility] Comment on above: S/P CABG (coronary a rtery bypass graft) Start: 02-18-2019 End: 02-18-2019 Documentation procedure Kristin Byrnes Work Phone: [facility] Start: 02-13-2019 End: 02-13-2019 Postop follow up visit related to original px Kristin Walkergabrielle Walker Work Phone: [facility] Comment on above: S/P CABG (coronary a rtery bypass graft) (Primary Dx) Start: 02-13-2019 End: 02-13-2019 Subsequent hospital visit by physician Kristin Byrnes Work Phone: [facility] Comment on above: S/P CABG x 1 Start: 02-06-2019 End: 02-06-2019 Postop follow up visit related to original px Jacob Cam Work Phone: [facility] Comment on above: S/P CABG x 1 (Primar y Dx) Start: 02-06-2019 End: 02-06-2019 Subsequent hospital visit by physician Kristin Walker Work Phone: [facility] Comment on above: S/P CABG (coronary a rtery bypass graft) Start: 02-02-2019 End: 02-04-2019 Subsequent hospital visit by physician Arvin Gilliam Work Phone: [facility] Cardiovascular ICU Comment on above: S/P CABG x 1 Start: 02-02-2019 End: 02-02-2019 Subsequent hospital visit by physician Kristin Walker Work Phone: [facility] Diagnostics Comment on above: Chest pain, unspecif ied type Start: 01-31-2019 End: 01-31-2019 Documentation procedure Kristin Walker Work Phone: [facility] Start: 01-31-2019 End: 01-31-2019 Postop follow up visit related to original px Kristin Walker Work Phone: [facility] Comment on above: S/P CABG (coronary a rtery bypass graft) (Primary Dx) Start: 01-31-2019 End: 01-31-2019 Subsequent hospital visit by physician Kristin Byrnes Work Phone: [facility] Comment on above: S/P CABG (coronary a rtery bypass graft) Start: 01-21-2019 End: 01-21-2019 Evaluation and management of inpatient Kristin Byrnes Work Phone: [facility] Pulmonary [facility] Start: 01-17-2019 End: 01-29-2019 Evaluation and management of inpatient Ana Ruizjanki Weaver Work Phone: [facility] Cardiovascular [facility] Comment on above: Chest pain, atypical (Primary Dx); Type 2 diabetes mellitus without complication, without long-term current use of insulin (HCC); Coronary artery disease, angina presence unspecified, unspecified vessel or lesion type, unspecified whether [place] or transplanted heart; Type 2 diabetes mellitus with other circulatory complications (HCC); S/P CABG x 1 Start: 01-04-2019 End: 01-04-2019 Emergency department patient visit Brian Cordoba Work Phone: [facility] Emergency Department Comment on above: COPD exacerbation (H CC) (Primary Dx) Start: 12-26-2018 End: 12-26-2018 Office outpatient visit 25 minutes Maykel Whitney Work Phone: [facility] Comment on above: Coronary artery dise ase involving [place] coronary artery of [place] heart with angina pectoris (HCC) (Primary Dx); Acute on chronic diastolic heart failure (HCC) Start: 12-25-2018 End: 12-25-2018 Subsequent hospital visit by physician Patricia Louis Work Phone: [facility] Comment on above: Chronic systolic con gestive heart failure (HCC) Start: 12-18-2018 End: 12-18-2018 Subsequent hospital visit by physician Patricia Louis Work Phone: [facility] Comment on above: Chronic systolic con gestive heart failure (HCC) Start: 12-10-2018 End: 12-10-2018 Subsequent hospital visit by physician Patricia Louis Work Phone: [facility] Comment on above: Chronic systolic hea rt failure (HCC); Hypertension, unspecified type; Coronary artery disease involving [place] coronary artery of [place] heart without angina pectoris Start: 11-26-2018 Refill Patricia Morales ax [employer] Work Phone: [facility] Comment on above: Medication Refill Start: 09-27-2018 End: 09-27-2018 Emergency department patient visit Jesúscam Erik Work Phone: [facility] Emergency Department Comment on above: Acute exacerbation o f chronic obstructive pulmonary disease (COPD) (HCC) (Primary Dx) Start: 01-21-2018 End: 01-21-2018 Patient encounter procedure Other Other [facility] Start: 01-11-2018 End: 01-11-2018 Patient encounter procedure Sophia Jarad Llanos [facility] Comment on above: Other (ROSA Attempt.) Start: 01-08-2018 End: 01-09-2018 Patient encounter procedure Yareli Platayuliana Facility:[facility] Start: 01-07-2018 Patient encounter procedure Patricia L. Sruthi Facility:[facility] Start: 01-07-2018 End: 01-07-2018 Office outpatient visit 25 minutes Patricia Rodríguez Sruthi Work Phone: [facility] Comment on above: Chronic systolic hea rt failure (HCC) (Primary Dx); Essential hypertension; Coronary artery disease involving [place] coronary artery of [place] heart without angina pectoris Start: 09-23-2017 End: 09-25-2017 Patient encounter procedure Sofie Daigle Facility:[facility] Start: 09-20-2017 End: 09-20-2017 Office outpatient visit 25 minutes Patricia L. Sruthi Work Phone: [facility] Start: 09-20-2017 Refill Patricia Westbrooku ax [employer] MANAGER Work Phone: [facility] Comment on above: Medication Refill Start: 09-11-2017 End: 09-11-2017 Emergency department patient visit Samira Monzon Facility:[facility] Start: 06-11-2017 Refill Izabel [facility] Start: 03-08-2017 End: 03-08-2017 Ambulatory Fitz Mg Work Phone: [facility] Start: 01-18-2017 End: 01-18-2017 Ambulatory Carola Lyle Work Phone: [facility] Start: 12-08-2016 Office outpatient vi sit 15 minutes Bev Tolentino Work Phone: [facility] Start: 11-23-2016 Office outpatient vi sit 15 minutes Bev Thomas Exten Work Phone: [facility] Start: 11-02-2016 End: 11-02-2016 Office outpatient visit 15 minutes Bev Thomas Rajan Work Phone: [facility] Comment on above: Leukocytosis, unspec ified type (Primary Dx) Start: 10-26-2016 End: 10-26-2016 Patient encounter procedure Bev Thomas Rajan Work Phone: [facility] Start: 10-26-2016 Office/outpatient visit, est, level 4 Bev Thomas Rajan Work Phone: [facility] Start: 10-20-2016 End: 10-20-2016 Ambulatory Moises Patel Work Phone: [facility] Start: 10-20-2016 End: 10-20-2016 Ambulatory Moises Patel Work Phone: [facility] Start: 10-12-2016 End: 10-12-2016 Patient encounter procedure Moises Patel Work Phone: [facility] Start: 10-12-2016 End: 10-12-2016 Patient encounter procedure Moises Patel Work Phone: [facility] Start: 09-18-2016 End: 09-18-2016 Patient encounter procedure Patricia Anne Louis Work Phone: [facility] Start: 09-18-2016 Office/outpatient visit, est, level 3 Patricia Bowersx Work Phone: [facility] Start: 06-21-2016 Refill Patricia Westbrooku ax [employer] Work Phone: [facility] Comment on above: Medication Refill Start: 03-30-2016 Refill Patricia Westbrooku ax [employer] MANAGER Work Phone: [facility] Comment on above: Medication Refill Start: 10-08-2015 Refill Patricia Westbrooku ax SENIOR CONSTRUCTION PROJECT MANAGER Work Phone: [facility] Heart Failure [facility] Comment on above: Medication Refill Procedures Date Procedure Procedure Detail Performing Clinician Start: 12-07-2022 CT of left shoulder DO Jasen Campbell Work Phone: Start: 12-07-2022 Antibody screen Jose Raul Campbell Comment on above: Result Comment: PERF ORMED BY: [facility] [place] [address] PATHOLOGIST MAJOR GIFTS MANAGER TIBURCIO POWERS M.D. Start: 12-07-2022 Plain X-ray [...] Dup-scan uxtr art/ar tl bpgs uni/lmtd study Antia Rowland MD Work Phone: Start: 06-10-2020 Dup-scan [...] Start: 02-25-2019 UGALDE TOP Fausto Ladd n Underwood Work Phone: Start: 02-25-2019 LIGHT GREEN TOP Fausto cosby Crouse Work Phone: Start: 02-25-2019 RAINBOW DRAW Fausto Ladd n Underwood Work Phone: Start: 02-25-2019 Basic metabolic 2000 [...] [Mass/volume] in Serum or Plasma Fausto Laddn Underwood Work Phone: Start: 02-25-2019 Troponin measurement Mi [...] Jim Work Phone: Start: 01-27-2019 Radiography of chqwmq-[id number] Kristin Walker Work Phone: Start: 01-27-2019 Echography [...] arteri al blood gas studies Generic [facility] Work Phone: Start: 01-24-2019 End: 01-24-2019 Glucose [Mass/volume] in Blood Nova Barrera Diandra Work Phone: Start: 01-24-2019 Evaluation of arteri al blood gas studies Generic [facility] Work Phone: Start: 01-24-2019 Glucose [Mass/volume ] in Blood jax Barrera Diandra Work Phone: Start: 01-24-2019 Calcium.ionized [Mas s/volume] in Serum or Plasma Kristin Abraham [facility] Work Phone: Start: 01-24-2019 aPTT in Blood by Coa gulation assay Kristin Abraham [facility] Work Phone: Start: 01-24-2019 Basic metabolic 2000 panel - Serum or Plasma Kristin Abraham [facility] Work Phone: Start: 01-24-2019 Complete blood count with white cell differential, automated Kristin Abraham [facility] Work Phone: Start: 01-24-2019 Complete blood count with white cell differential, manual Kristin Abraham [facility] Work Phone: Start: 01-24-2019 Fibrinogen [Mass/vol ume] in Platelet poor plasma by Coagulation assay Kristin Abraham [facility] Work Phone: Start: 01-24-2019 INR in Platelet poor plasma by Coagulation assay Kristin Abraham [facility] Work Phone: Start: 01-24-2019 Magnesium [Mass/volu me] in Serum or Plasma Kristinkyler Byrnes Work Phone: Start: 01-24-2019 Evaluation of arteri al blood gas studies Generic [facility] Work Phone: Start: 01-24-2019 End: 01-24-2019 [...] blood count with white cell differential, automated Kirstin Hernandezy Work Phone: Start: 01-23-2019 Complete blood count with white cell differential, manual Kristin Abraham Titley Work Phone: Start: 01-22-2019 Glucose [Mass/volume ] in Blood Nova Braxtoned Diandra Work Phone: Start: 01-22-2019 aPTT in Blood by Coa gulation assay Carlo Mercedes Work Phone: Start: 01-22-2019 Glucose [Mass/volume ] in Blood Noav Chavarria Ayed Diandra Work Phone: Start: 01-22-2019 APTT - reference Maykel Whitney Work Phone: Start: 01-22-2019 Glucose [Mass/volume ] in Blood Nova Jim Work Phone: Start: 01-22-2019 Drugs of abuse urine screening test Kristin Jarad [facility] Work Phone: Start: 01-22-2019 Urinalysis Kristin Alannah marquis Titley Work Phone: Start: 01-22-2019 APTT - reference Maykel Whitney Work Phone: Start: 01-22-2019 Basic metabolic 2000 panel - Serum or Plasma Kristin Lee Giggemy Work Phone: Start: 01-22-2019 Complete blood count with white cell differential, automated Kristin Abraham [employer] Work Phone: Start: 01-22-2019 Complete blood count with white cell differential, manual Kristin Lee Giggemy Work Phone: Start: 01-21-2019 Glucose [Mass/volume ] in Blood Nova Jim Work Phone: Start: 01-21-2019 APTT - reference Mirna Rodriguez Work Phone: Start: 01-21-2019 Glucose [Mass/volume ] in Blood Nova Jim Work Phone: Start: 01-21-2019 Contrast echocardiography Kristin Jarad [employer] Work Phone: Start: 01-21-2019 Glucose [Mass/volume ] in Blood Nova Jim Work Phone: Start: 01-21-2019 Bacteria identified in Unspecified specimen by Aerobe culture Kristin Lee [employer] Work Phone: Start: 01-21-2019 Standard chest X-ray Nasim Abraham Titley Work Phone: Start: 01-21-2019 Doppler ultrasonogra phy of artery of lower limb Kristin Abraham [facility] Work Phone: Start: 01-21-2019 COMPLETE PFT Kristin Grijalva [facility] Work Phone: Start: 01-21-2019 Basic metabolic 2000 panel - Serum or Plasma Kristin Abraham [employer] Phone: Start: 01-21-2019 Complete blood count with white cell differential, automated Kristin Abraham [facility] Work Phone: Start: 01-21-2019 Complete blood count with white cell differential, manual Kristin Abraham [facility] Work Phone: Start: 01-20-2019 Carotid artery doppl er assessment Kristin Abraham [facility] Work Phone: Start: 01-20-2019 Electrocardiogram Provi malinda Not In System Start: 01-20-2019 Cul bact xcpt urine blood/stool aerobic isol Kristin Abraham [facility] Work Phone: Start: 01-20-2019 Evaluation of arteri al blood gas studies Generic [facility] Work Phone: Start: 01-20-2019 Amylase measurement, body fluid Kristin Abraham [facility] Work Phone: Start: 01-20-2019 Blood type and Indir ect antibody screen panel - Blood Kristin Abraham [employer] Phone: Start: 01-20-2019 Hemoglobin A1c/Hemoglobin.total in Blood Kristin Abraham [facility] Work Phone: Start: 01-20-2019 Hepatic function 200 0 panel - Serum or Plasma Kristin Abraham [employer] Phone: Start: 01-20-2019 INR in Platelet poor plasma by Coagulation assay Kristin Abraham [employer] Phone: Start: 01-20-2019 Prealbumin [Mass/vol ume] in Serum or Plasma Kristin Abraham [employer] Phone: Start: 01-20-2019 Thyrotropin [Units/v olume] in [...] System Start: 09-28-2018 Assay of troponin quantitative [facility] Start: 09-28-2018 Natriuretic peptide [facility] Start: 09-27-2018 Assay of troponin quantitative [facility] Start: 09-27-2018 Fibrin dgradj produc ts d-dimer quantitative [facility] Start: 09-27-2018 Complete blood count with white cell differential, automated Nathanael Valencia Work Phone: Start: 09-27-2018 Complete blood count with white cell differential, manual [employer] Valencia Work Phone: Start: 09-27-2018 Radiologic exam ches t single view Nathanael Valencia Work Phone: Start: 09-27-2018 Basic metabolic pane l calcium total [facility] Start: 09-27-2018 POC CBC AND DIFFERENTIAL Jesúscam Valencia Work Phone: Start: 09-27-2018 End: 09-28-2018 12 lead ECG Jesúscam Valencia Work Phone: Start: 05-27-2015 Colonoscopy Tiffany ovalle RN Plan of Treatment Date Care Activity Detail Author Start: 08-08-2036 Pneumococcal Vaccine: Ped or At-Risk (2 of 2 - PPSV23) Pneumococcal Vaccine: Ped or At-Risk (2 of 2 - PPSV23) [facility] Start: 05-26-2025 Screening for malignant neoplasm of colon [facility] Start: 11-07-2023 Prostate specific antigen measurement PSA Level [facility] Start: 10-13-2022 Influenza vaccination Sequential Influenza Vaccine (Season Ended) [facility] Start: 03-29-2022 End: 03-29-2022 Patient encounter procedure 03/29/2022 Office Visit Family Medicine Moises Patel MD [address] [place] [address] [facility] Start: 02-05-2022 Hemoglobin A1c measurement A1C [facility] Start: 10-31-2021 End: 10-31-2021 Patient encounter procedure 10/31/2021 Office Visit Cardiology Anita Rowland MD [address] [place] [address] [facility] Start: 10-13-2021 Influenza vaccination [facility] Start: 08-08-2021 Administration of herpes zoster vaccine Zoster Vaccines (1 of 2) [facility] Start: 08-08-2021 Prostate specific antigen measurement PROSTATE CANCER SCREENING DISCUSSION [facility] Start: 08-08-2021 Screening for malignant neoplasm of colon Flexible sigmoidoscopy [facility] Start: 08-08-2021 Zoster vaccine hzv live for subcutaneous use ZOSTER (SHINGLES) VACCINE (1 of 2) [facility] Start: 10-13-2020 Influenza vaccination [facility] Start: 10-01-2020 COVID-19 VACCINE (3 - Booster for Pfizer series) COVID-19 VACCINE (3 - Booster for Pfizer series) [facility] Start: 09-24-2020 End: 09-24-2020 Patient encounter procedure 09/24/2020 Office Visit Pulmonary Disease Valerie Carreno, SUPERVISOR [employer]IR[employer]MENTAL SERVICES WORKER [address] [id number] [facility] Pulmonary Disease [facility] Start: 08-06-2020 COVID-19 Vaccine (2 - Pfizer 2-dose series) COVID-19 Vaccine (2 - Pfizer 2-dose series) [facility] Start: 08-06-2020 COVID-19 Vaccine (2 - Pfizer series) COVID-19 Vaccine (2 - Pfizer series) [facility] Start: 07-12-2020 End: 08-10-2021 Ultrasound duplex arterial arm left Ultrasound duplex arterial arm left Vascular Ultrasound Routine Other specified complications of surgical and medical care, not elsewhere classified, initial encounter Expected: 07/12/2020, Expires: 08/10/2021 [facility] Comment on above: Expected: 07/12/2020, Expires: Start: 07-09-2020 End: 07-09-2020 Patient encounter procedure 07/09/2020 Appointment Cardiology Anita Rowland MD [address] [place] [address] [phone] [facility] Start: 06-02-2020 Subsequent hospital visit by physician 06/02/2020 Hospital Encounter Cardiology Anita Rowland MD [address] [place] [address] [phone] [facility] Procedural Care Unit Start: 05-28-2020 End: 05-28-2020 Appointment [facility] Start: 03-24-2020 HbA1c (Bld) [Mass fraction] A1C [facility] Start: 03-24-2020 Hemoglobin A1c measurement A1C [facility] Start: 02-26-2020 Screening for malignant neoplasm of lung Low-dose CT Lung Cancer Screen [facility] Start: 12-08-2019 End: 12-08-2019 Office Visit 12/08/2019 Office Visit Cardiology Anita Rowland MD [address] [place] [address] [phone] [facility] Start: 11-07-2019 End: 11-07-2019 Appointment 11/07/2019 Appointment Cardiology Anita Rowland MD [address] [place] [address] [phone] [facility] Start: 11-05-2019 End: 11-05-2019 Office Visit 11/05/2019 Office Visit Neurology Ginny Rushing CNP [address] [address] [phone] [facility] Start: 10-16-2019 End: 10-16-2019 Appointment 10/16/2019 Appointment Cardiology Anita Rowland MD [address] [place] [address] [phone] [facility] Start: 10-14-2019 Influenza vaccination Sequential Influenza Vaccine (#1) [facility] Start: 10-14-2019 Influenza vaccination given Sequential Influenza Vaccine (#1) [facility] Start: 09-30-2019 End: 09-30-2019 Office Visit 09/30/2019 Office Visit Cardiology Anita Rowland MD [address] [place] [address] [phone] [facility] Start: 07-31-2019 End: 07-31-2019 Appointment [facility] Start: 07-22-2019 HbA1c (Bld) [Mass fraction] A1C [facility] Start: 06-25-2019 End: 06-25-2019 Treatment 06/25/2019 Treatment Cardiac Carlo Berry MD [address] [place] [address] [phone] [facility] Start: 06-23-2019 End: 06-23-2019 Treatment 06/23/2019 Treatment Cardiac Carlo Berry MD [address] [place] [address] [phone] [facility] Start: 06-19-2019 End: 06-19-2019 Treatment 06/19/2019 Treatment Cardiac Carlo Berry MD [address] [place] [address] [phone] [facility] Start: 06-18-2019 End: 06-18-2019 Treatment 06/18/2019 Treatment Cardiac Carlo Berry MD [address] [place] [address] [phone] [facility] Start: 06-16-2019 End: 06-16-2019 Treatment 06/16/2019 Treatment Cardiac Carlo Berry MD [address] [place] [address] [phone] [facility] Start: 06-12-2019 End: 06-12-2019 Treatment 06/12/2019 Treatment Cardiac Carlo Berry MD [address] [place], [place] [address] [address] [phone] [facility] Start: 06-11-2019 End: 06-11-2019 Treatment 06/11/2019 Treatment Cardiac Rehabilitation Carlo Mercedes MD [address] [place] [address] [facility] Start: 06-09-2019 End: 06-09-2019 Treatment 06/09/2019 Treatment Cardiac Rehabilitation Carlo Mercedes MD [address] [place] [address] [phone] [facility] Start: 06-05-2019 End: 06-05-2019 Treatment [facility] Start: 06-04-2019 End: 06-04-2019 Treatment [facility] Start: 06-02-2019 End: 06-02-2019 Treatment [facility] Start: 05-29-2019 End: 05-29-2019 Treatment [facility] Start: 05-28-2019 End: 05-28-2019 Treatment [facility] Start: 05-26-2019 End: 05-26-2019 Treatment [facility] Start: 05-22-2019 End: 05-22-2019 Treatment [facility] Start: 05-21-2019 End: 05-21-2019 Treatment [facility] Start: 05-19-2019 End: 05-19-2019 Treatment [facility] Start: 05-15-2019 End: 05-15-2019 Treatment [facility] Start: 05-14-2019 End: 05-14-2019 Treatment [facility] Start: 05-12-2019 End: 05-12-2019 Treatment [facility] Start: 05-08-2019 End: 05-08-2019 Treatment [facility] Start: 05-07-2019 End: 05-07-2019 Treatment [facility] Start: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 Miscellaneous Notes Refill needed to local pharmacy. Last OV with Dr. Rowland 05/28/20. documented in this encounter [facility] 09-15-2020 History of Presen t illness Narrative Follow Up Visit Fernando Helton [id number] 1970 09/15/2020 Chief Complaint Patient presents with [...] disease) Essential hypertension, benign Head pain Hyperlipidemia HI (myocardial infarction) 01/2012, 04/2012 x2 Neck pain ISAC on CPAP 07/06/2020 Past Surgical History: Procedure Laterality Date OTHER SURGICAL 2019 open heart surgery LUNG SURGERY 2019 drainage of fluid on lung ARTHROSCOPY SHOULDER W/ BICEPS TENODESIS Left 05/08/2013 Laterality: Left; Surgeon: Louise Waldron MD; Location: [facility] MAIN OR SHOULDER SURGERY Left 11/22/11 SINUS [...] Social Gatherings with Friends and Family: Attends [employer]ism Services: Active Member of Clubs or Organizations: [...] of breath, Disp: 1 Each, Rfl: 0 Vlwswdpstog-Gbekkbdxz-Wsqvdx (Trelegy Ellipta) 200-62.5-25 MCG/INH Aerosol Powder, breath [...] Mites/D.P., Class 1.04 (A) ELM, IGE <0.10 [place], IGE <0.10 [place], [place] 2.77 (A) [...] Patel MD documented in this encounter [facility] 08-19-2020 Miscellaneous Notes Refill needed to local pharmacy. Last OV with Dr. Rowland May 2020. documented in this encounter [facility] 08-06-2020 Miscellaneous Notes Last OV 05/28/20. Refills appropriate. documented in this encounter [facility] 06-10-2020 Miscellaneous Notes Order needed to local pharmacy. One week sample given for Xarelto 20mg PO daily. Coupon also given for refill pickup. Education handouts given. documented in this encounter [facility] 06-10-2020 History of Presen t illness Narrative Dr. Rowland notified of preliminary results of arterial duplex. Patient discussing results with Dr. Rowland and new orders received for Xarelto 20mg daily. Instructional handout given. Spoke to with recommendations as well. documented in this encounter [facility] 06-10-2020 History of Presen t illness Narrative [...] radial pulse palpated. documented in this encounter [facility] 06-02-2020 Hospital Discharg e instructions Princess Cisneros RN - 06/02/2020 [facility] Post Cardiac Catheterization Discharge Instructions Site Care Leave Bandage in place the night of your catheterization. Watch for any bleeding or oozing from the site. If this occurs, lie flat and place direct pressure on the bandage for 20 minutes. If bleeding reoccurs call [facility]. For groins, remove your bandage the following [...] shower 24 hours after the procedure. Call [facility] at [phone] if you notice any of the following: [...] need of prescription assistance, please notify the [facility] nurse or call the office. If you were prescribed Plavix (clopidogrel), Effient (prasugrel), or Brilinta (ticagrelar) after your procedure, DO NOT STOP taking this medication unless told to do so by your [facility] multiple launch rocket system crewmember. Follow up appointments, tests or procedures will be on your discharge paperwork under What's next. Please call [facility] at [phone] to reschedule any appointments if needed or if you have any questions or concerns. Thank you! documented in this encounter [facility] 06-01-2020 History of Presen t illness Narrative Called and notified patient of time change for cath tomorrow. Patient to arrive to the hospital at 0800 for cath at 1000. Patient verbalizes understanding. documented in this encounter [facility] 05-28-2020 Miscellaneous Notes Associated Problem(s): COPD (chronic obstructive pulmonary disease) (HCC) Patient reports he has discontinued tobacco abuse. Associated Problem(s): ISAC (obstructive sleep apnea) Noncompliant with CPAP therapy. Associated Problem(s): Coronary artery disease involving [place] coronary artery of [place] heart without angina pectoris Patient has a [...] intensified as tolerated. documented in this encounter [facility] 05-28-2020 History of Presen t illness Narrative CARDIOLOGY PROGRESS NOTE [facility] [address] ([address]) [facility] [address] [facility] [id number] Physicians: Moises Patel MD (Family); No [...] not describing palpitations. Patient was hospitalized at [facility] in an observational stay unit for [...] plaque stabilization therapy. Coronary artery disease involving [place] coronary artery of [place] heart without angina pectoris Patient has a [...] review of systems obtained by the medical reception specialist. Vitals: Vitals: 05/28/20 1605 BP: (!) 149/88 Pulse: 78 SpO2: 96% Weight: 121.6 kg (268 lb) Height: 5' 5.98 1. Essential hypertension 2. Mixed hyperlipidemia 3. Coronary artery disease involving [place] coronary artery of [place] heart without angina pectoris 4. PAD (peripheral artery disease) (HCC) 5. Centrilobular emphysema (HCC) 6. ISAC (obstructive sleep apnea) 7. Nicotine abuse 8. Pre-procedure lab exam 9. Abnormal stress test Anita Rowland MD documented in this encounter [facility] 05-28-2020 Instructions Rubi Pratt RN - 05/28/2020 4:33 PM EDT Tiffany Leo BSN, remote sensing technologist for Anita Rowland MD [address] [facility], 3rd Floor [place] [address] General office (Scheduling) Covid Testing Prior to your procedure or test you will need to have a test to rule out Covid 19. This is an oral swab that is done at a drive-up testing site in [place]. You are to have this test completed no earlier than 96 hours but no less than 72 hours before your cardiac procedure or test. The testing site is at [address] [place] [address] in [place]. It is off of [address] between [address] and [facility]. The hours of testing are Sunday to [...] Tuesday June 02, 2020 Please arrive at [facility] and check in at the Outpatient Registration [...] questions or concerns please contact us at [phone]. documented in this encounter [facility] 06-11-2017 Telephone encount er Note Pts left a VM requesting refills on three of the pts medications. [facility] 06-11-2017 Miscellaneous Notes Formattin g of this note might be different from the original. Pts left a VM requesting refills on three of the pts medications. documented in this encounter [facility] Evaluation note Diagnosis Essential hypertension- Primary Unspecified essential hypertension Mixed hyperlipidemia Coronary artery disease involving [place] coronary artery of [place] heart without angina pectoris PAD (peripheral artery disease) (HCC) Unspecified peripheral vascular disease Centrilobular emphysema (HCC) ISAC (obstructive sleep apnea) Obstructive sleep apnea (adult) (pediatric) Nicotine abuse Pre-procedure lab exam Pre-procedural laboratory examination Abnormal stress test Other nonspecific abnormal cardiovascular system function study documented in this encounter [facility] note* Diagnosis NSVT (nonsustained ventricular tachycardia) ([facility]) Abnormal EKG Nonspecific abnormal electrocardiogram (ECG) (EKG) documented in this encounter [facility] note* Diagnosis Other specified complications of surgical and medical care, not elsewhere classified, initial encounter- Primary documented in this encounter [facility] note* Diagnosis Other specified complications of surgical and medical care, not elsewhere classified, initial encounter- Primary documented in this encounter [facility] note* Diagnosis Other specified complications of surgical and medical care, not elsewhere classified, initial encounter documented in this encounter [facility] note* Diagnosis Other specified complications of surgical and medical care, not elsewhere classified, initial encounter documented in this encounter [facility] note* Diagnosis Chronic obstructive pulmonary disease with acute exacerbation- Primary Obstructive chronic bronchitis with exacerbation COPD with acute exacerbation Obstructive chronic bronchitis with exacerbation [facility] Inadequately controlled diabetes mellitus- Primary Type II or unspecified type diabetes mellitus without mention of complication, not stated as uncontrolled Insomnia, unspecified type documented in this encounter [facility] noteNo assessment information [facility] Work Phone: Hospital Discharge instructions Additional Instructions If your symptoms return/worsen or you develop any further concerns or symptoms please see your doctor or return to the emergency department immediately. Please be sure to follow-up with your primary care provider regarding today's visit as well as the lab and imaging results.[facility] Work Phone: Assessments Diagnosis Leukocytosis, unspecified ty pe - Primary Diagnosis Essential hypertension - Vivi emma Unspecified essential hypertension Chronic systolic heart failu re (HCC) Chronic systolic heart failure Coronary artery disease invo lving [place] coronary artery of [place] heart without angina pectoris Hyperlipidemia, unspecified hyperlipidemia type Diagnosis Leukocytosis, unspecified ty pe - Primary Diagnosis Leukocytosis, unspecified ty pe - Primary Diagnosis Chronic systolic heart failu re (HCC) - Primary Chronic systolic heart failure Essential hypertension Unspecified essential hypertension Coronary artery disease invo lving [place] coronary artery of [place] heart without angina pectoris Diagnosis Chronic systolic heart failu re (HCC) - Primary Chronic systolic heart failure Essential hypertension Unspecified essential hypertension Coronary artery disease invo lving [place] coronary artery of [place] heart without angina pectoris Diagnosis Leukocytosis, unspecified ty pe - Primary Diagnosis Acute exacerbation of chronic obstructive pulmonary disease (COPD) ([facility])- Primary Obstructive chronic bronchitis with exacerbation Diagnosis [...] unspecified vessel or lesion type, unspecified whether [place] or transplanted heart Diagnosis TIA (transient ischemic attack)- Primary Unspecified transient cerebral ischemia Essential hypertension Unspecified essential hypertension Mixed hyperlipidemia Coronary artery disease involving [place] coronary artery of [place] heart without angina pectoris Centrilobular emphysema ([facility]) ISAC on CPAP Nicotine abuse Diagnosis TIA (transient ischemic attack) Unspecified transient cerebral ischemia Diagnosis Chronic systolic heart failure (HCC) Chronic systolic heart failure Hypertension, unspecified type Coronary artery disease involving [place] coronary artery of [place] heart without angina pectoris Diagnosis Chronic systolic congestive heart failure ([facility]) Diagnosis Chest pain, atypical Type 2 diabetes mellitus without complication, without long-term current use of insulin ([facility]) Coronary artery disease, angina presence unspecified, unspecified vessel or lesion type, unspecified whether [place] or transplanted heart Type 2 diabetes mellitus with other circulatory complications ([facility]) S/P CABG x 1 Postsurgical aortocoronary bypass status Chest pain Unspecified chest pain ACS (acute coronary syndrome) ([facility]) Intermediate coronary syndrome PAD (peripheral artery disease) ([facility]) Unspecified peripheral vascular disease Diagnosis Pleuritic chest pain Painful respiration Diagnosis Near syncope- Primary COPD (chronic obstructive pulmonary disease) ([facility]) Chronic airway obstruction, not elsewhere classified Coronary artery disease involving [place] coronary artery of [place] heart without angina pectoris ISAC (obstructive sleep apnea) Obstructive sleep apnea (adult) (pediatric) Essential hypertension Unspecified essential hypertension TIA (transient ischemic attack) Unspecified transient cerebral ischemia Mixed hyperlipidemia Nicotine abuse Diagnosis COPD exacerbation ([facility]) Obstructive chronic bronchitis with exacerbation Diagnosis Coronary artery disease involving [place] coronary artery of [place] heart with angina pectoris ([facility])- Primary Acute on chronic diastolic heart failure ([facility]) Acute on chronic diastolic heart failure Diagnosis Acute CVA (cerebrovascular accident) ([facility]) Essential hypertension Unspecified essential hypertension Mixed hyperlipidemia Coronary artery disease involving [place] coronary artery of [place] heart without angina pectoris GERD (gastroesophageal reflux disease) Esophageal reflux PAD (peripheral artery disease) ([facility]) Unspecified peripheral vascular disease TIA (transient ischemic [...] and how you are feeling on Sunday. [phone] Please work your portion sizes and snacks [...] your care team or the office at [phone]. Please include medication name, pharmacy name, and [...] They will send two batteries and a claim benefit specialist. While you are wearing one of the batteries please have the other battery charging in the claim benefit specialist device. Please do not get the device [...] when results have been interpreted by a multiple launch rocket system crewmember. If you have any questions please call [phone]. documented in this encounter* Patient Instructions* Ligia Koroma RN - 12/26/2018 4:05 PM EST Your nurse today was Ligia HURT who can be contacted at [phone]. You may also contact Kalina Bernal other nurse at [phone]. REFILLS: When in need of refills please call Ligia at the above number or the office at [phone]. Please include medication name and dose, pharmacy name and location, and specify 30-day or 90-day supply. Please check with your pharmacy within 24-48 hours of request for your refill. You must follow up as directed to continue current refills. Thank you! documented in this encounter History of Present Illness * Patricia Louis, SENIOR CONSTRUCTION PROJECT MANAGER - 01/07/2018 10:37 AM EST Formatting of this note may be different from the original. [facility] NAME: Fernando Helton DATE OF : 1970 MEDICAL RECORD#: [id number] TOWING PILOT: TODAY'S DATE: 01/07/2018 Subjective Fernando Helton is [...] edema. 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 Mr. Helton has not seen a multiple launch rocket system crewmember in some time. He will be scheduled [...] INCLUDES: Strong family hx w/ Father having HI/CABG at age 45. Mother w/ HI at 63 and CVA hx. The patient had an STEMI (anterior/lateral) in April 2012 required IABP and bare metal stenting. He was non-compliant w/ medications and had a anterior HI in 2014 w/ cardiac arrest and additional [...] 1998 CAD (coronary artery disease) CAD s/p [facility] with 1 stent in left main 07/2012, replaced 09/2014 Chest pain Circulation problem right leg COPD (chronic obstructive pulmonary disease) ([facility]) Fatigue GERD (gastroesophageal reflux disease) Headache HLD (hyperlipidemia) HTN (hypertension) Metabolic syndrome Mood disorder ([facility]) Obstructive sleep apnea Pneumomediastinum ([facility]) 01/2007 Rotator cuff tear, right 1997 s/p repair SLAP tear of shoulder 2011 left - s/p surgery to place [address] elevation myocardial infarction (STEMI) of anterolateral wall ([facility]) 05/09/12 Past Surgical History: Procedure Laterality Date [...] with patient. There is collaboration between the SENIOR CONSTRUCTION PROJECT MANAGER and the consulting/collaborating physician regarding this patient's [...] of multiple medical problems including CAD statuspost [facility] with 1 stent placed in [...] 1998 CAD (coronary artery disease) CAD s/p [facility] with 1 stent in left main 07/2012, replaced 09/2014 Chest pain Circulation problem right leg COPD (chronic obstructive pulmonary disease) ([facility]) Fatigue GERD (gastroesophageal reflux disease) Headache HLD (hyperlipidemia) HTN (hypertension) Metabolic syndrome Mood disorder ([facility]) Obstructive sleep apnea Pneumomediastinum ([facility]) 01/2007 Rotator cuff tear, right 1997 s/p repair SLAP tear of shoulder 2011 left - s/p surgery to place [address] elevation myocardial infarction (STEMI) of anterolateral wall ([facility]) 05/09/12 Past Surgical History: Procedure Laterality Date [...] seen by the PA. Dr. Arvin Gilliam, [facility] for Dr. 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 He [...] last 72 hours. 02/02/2019 CTA pulmonary arteries: [id number] effusion with mild atelectasis in the left [...] for discharge after thoracentesis Hold Plavix CPT: 59006 * Arvin Gilliam II, MD - 02/02/2019 [...] AM EST Kristin Walker PA-C 02/21/19 Fernando Hleton Allergies Allergen Reactions Imdur [Isosorbide Mononitrate] Caused [...] each, Rfl: 6 documented in this encounter* Krisitn Walker PA-C - 03/05/2019 8:22 AM EST [...] [place], PT - 03/11/2019 8:20 AM EST [facility] [address] [place], [place] [id number] Office 03/11/2019 Patient: Fernando Helton : 1970 Primary Diagnosis: CABG The Cardiac Rehab Staff had the recent pleasure of meeting Fernando Helton for a consultation regardingoutpatient cardiac rehabilitation. As you recall, Mr. Helton has a history of HI 2012, HI/ cardiac arrest 2014, and CHF. He recently presented with anterior wall HI. Cardiac cath 01/20/19: EF 45%; occ mid LAD stent. He underwent CABG x 1 on 01/24/19. Risks and benefits associated with a cardiac rehabprogram were discussed along with his risk factors and a preliminary treatment plan and goals for the program. The Cardiac Rehab Staff will maintain contact with you throughout the 12-week program. Thank you for allowing Mr. Helton to participate in [facility] comprehensive risk reduction [...] exercise prescription reviewed and approved by our coroner/medical examiner. Psychosocial: Patient scored a 3 on the [...] visit after single-vessel CABG (SPARKS to LAD) [place]-patient is a pleasant 48-year-old man with known [...] Medical History: Diagnosis Date Acute respiratory failure ([facility]) 09/2014 requring mechanical ventilation Anxiety Bilateral lower extremity edema R > L CAD (coronary artery disease) CAD s/p C with 1 stent in left main 07/2012, replaced 09/2014 Cardiac arrest with ventricular fibrillation ([facility]) 09/25/2014 CHF (congestive heart failure), NYHA class I, chronic, diastolic ([facility]) Chronic sinusitis Claudication of right lower extremity ([facility]) Cluster headache COPD (chronic obstructive pulmonary disease) ([facility]) 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 Bev Tolentino Metabolic syndrome Mood disorder ([facility]) Nasal fracture Obstructive sleep apnea noncompliant with CPAP Orthostatic dizziness with intermittent syncope Pericarditis 02/25/07; 09/23/17 Pneumomediastinum ([facility]) 01/12/2007 secondary to severe coughing spell & ruptured alveoli Rotator cuff tear, right 1997 s/p repair SLAP tear of shoulder 2011 left - s/p surgery to place [address] elevation myocardial infarction (STEMI) of anterolateral wall ([facility]) 05/09/2012 anterolateral STEMI involving left anterior descending coronary artery ([facility]) 09/25/2014 anterior Superficial thrombophlebitis of right upper extremity 12/26/2006 Past Surgical History: Procedure Laterality Date APPENDECTOMY 1998 BONE MARROW BIOPSY W/ ASPIRATION Left 11/27/2016 L posterior iliac crest; Dr. 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 Coronary artery disease involving [place] coronary artery of [place] heart without angina pectoris Patient has a [...] review of systems obtained by the medical reception specialist. Vitals: Vitals: 10/15/19 1406 BP: (!) 142/85 BP Location: Right arm Patient Position: Sitting BP Cuff Size: X-large Adult Pulse: 83 SpO2: 95% Weight: 120.2 kg (265 lb 1.6 oz) Height: 5' 6 1. TIA (transient ischemic attack) 2. Essential hypertension 3. Mixed hyperlipidemia 4. Coronary artery disease involving [place] coronary artery of [place] heart without angina pectoris 5. Centrilobular emphysema (HCC) 6. ISAC on CPAP 7. Nicotine abuse Anita Rowland MD documented in this encounter* Slim Low, ENVIRONMENTAL SERVICES WORKER - 01/29/2019 9:56 AM EST Patient ID: Patient Name: Fernando Helton Admit Date: 01/17/2019 MR #: [id number] : 1970 Current location: [facility] Physicians: Moises Patel MD (Family); Kristin [...] replaced 09/2014 Cardiac arrest with ventricular fibrillation ([facility]) 09/25/2014 CHF (congestive heart failure), NYHA class I, chronic, diastolic (HCC) Chronic sinusitis Claudication of right lower extremity (HCC) Cluster headache COPD (chronic obstructive pulmonary disease) ([facility]) 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 Bev Tolentino Metabolic syndrome Mood disorder ([facility]) Nasal fracture Obstructive sleep apnea noncompliant with CPAP Orthostatic dizziness with intermittent syncope Pericarditis 02/25/07; 09/23/17 Pneumomediastinum ([facility]) 01/12/2007 secondary to severe coughing spell & ruptured alveoli Rotator cuff tear, right 1998 s/p repair SLAP tear of shoulder 2011 left - s/p surgery to place [address] elevation myocardial infarction (STEMI) of anterolateral wall ([facility]) 05/09/2012 anterolateral STEMI involving left anterior descending coronary artery ([facility]) 09/25/2014 anterior Superficial thrombophlebitis of right upper extremity 12/26/2006 Past Surgical History: Procedure Laterality Date APPENDECTOMY 1998 BONE MARROW BIOPSY W/ ASPIRATION Left 11/27/2016 L posterior iliac crest; Dr. 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 [...] Fernando Helton Admit Date: 01/17/2019 MR #: [id number] : 1970 Current location: [facility] Physicians: Moises Patel MD (Family); Kristin [...] Medical History: Diagnosis Date Acute respiratory failure ([facility]) 09/2014 requring mechanical ventilation Anxiety Bilateral lower extremity edema R > L CAD (coronary artery disease) CAD s/p [facility] with 1 stent in left main 07/2012, replaced 09/2014 Cardiac arrest with ventricular fibrillation ([facility]) 09/25/2014 CHF (congestive heart failure), NYHA class I, chronic, diastolic ([facility]) Chronic sinusitis Claudication of right lower extremity ([facility]) Cluster headache COPD (chronic obstructive pulmonary disease) ([facility]) 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 Bev Tolentino Metabolic syndrome Mood disorder ([facility]) Nasal fracture Obstructive sleep apnea noncompliant with CPAP Orthostatic dizziness with intermittent syncope Pericarditis 02/25/07; 09/23/17 Pneumomediastinum ([facility]) 01/12/2007 secondary to severe coughing spell & ruptured alveoli Rotator cuff tear, right 1997 s/p repair SLAP tear of shoulder 2011 left - s/p surgery to place [address] elevation myocardial infarction (STEMI) of anterolateral wall ([facility]) 05/09/2012 anterolateral STEMI involving left anterior descending coronary artery ([facility]) 09/25/2014 anterior Superficial thrombophlebitis of right upper extremity 12/26/2006 Past Surgical History: Procedure Laterality Date APPENDECTOMY 1998 BONE MARROW BIOPSY W/ ASPIRATION Left 11/27/2016 L posterior iliac crest; Dr. 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 He is from home with his spouse and is s/p Cabg post op day #3 An echo has been ordered along with a kub. * Johan Koch PA-C - 01/27/2019 7:44 AM EST Patient ID: Patient Name: Fernando Helton Admit Date: 01/17/2019 MR #: [id number] : 1970 Current location: [facility] Physicians: Moises Patel MD (Family); Kristin [...] L CAD (coronary artery disease) CAD s/p [facility] with 1 stent in left main 07/2012, replaced 09/2014 Cardiac arrest with ventricular fibrillation ([facility]) 09/25/2014 CHF (congestive heart failure), NYHA class I, chronic, diastolic ([facility]) Chronic sinusitis Claudication of right lower extremity ([facility]) Cluster headache COPD (chronic obstructive pulmonary disease) ([facility]) 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 Bev Tolentino Metabolic syndrome Mood disorder ([facility]) Nasal fracture Obstructive sleep apnea noncompliant with CPAP Orthostatic dizziness with intermittent syncope Pericarditis 02/25/07; 09/23/17 Pneumomediastinum (HCC) 01/12/2007 secondary to severe coughing spell & ruptured alveoli Rotator cuff tear, right 1998 s/p repair SLAP tear of shoulder 2011 left - s/p surgery to place [address] elevation myocardial infarction (STEMI) of anterolateral wall ([facility]) 05/09/2012 anterolateral STEMI involving left anterior descending coronary artery ([facility]) 09/25/2014 anterior Superficial thrombophlebitis of right upper [...] Heart Cath; Surgeon: Carlo Mercedes MD; 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 Electronically signed by: Johan Koch PA-C, [facility] 01/27/19 7:47 AM * Kristin [...] for pain KUB Serum troponin x3 CPT: 47242 * Melinda Fernandez MD - 01/26/2019 7:51 AM EST Patient ID: Patient Name: Fernando Helton Admit Date: 01/17/2019 MR #: [id number] : 1970 Current location: [facility] Physicians: Moises Patel MD (Family); Kristin [...] heart failure and is followed by Pallavi Dvaid clinical nurse specialist in our heart failure [...] Medical History: Diagnosis Date Acute respiratory failure ([facility]) 09/2014 requring mechanical ventilation Anxiety Bilateral lower extremity edema R > L CAD (coronary artery disease) CAD s/p [facility] with 1 stent in left main 07/2012, replaced 09/2014 Cardiac arrest with ventricular fibrillation ([facility]) 09/25/2014 CHF (congestive heart failure), NYHA class I, chronic, diastolic ([facility]) Chronic sinusitis Claudication of right lower extremity ([facility]) Cluster headache COPD (chronic obstructive pulmonary disease) ([facility]) 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 Bev Tolentino Metabolic syndrome Mood disorder ([facility]) Nasal fracture Obstructive sleep apnea noncompliant with CPAP Orthostatic dizziness with intermittent syncope Pericarditis 02/25/07; 09/23/17 Pneumomediastinum (HCC) 01/12/2007 secondary to severe coughing spell & ruptured alveoli Rotator cuff tear, right 1997 s/p repair SLAP tear of shoulder 2011 left - s/p surgery to place [address] elevation myocardial infarction (STEMI) of anterolateral wall ([facility]) 05/09/2012 anterolateral STEMI involving left anterior descending [...] Heart Cath; Surgeon: Carlo Mercedes MD; 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 Attempted to obtain an echo, but informed [...] deep breath. OBJECTIVE: Right IJ cordis with [place] catheter, right brachial arterial line, mediastinal and [...] 1,250 mg, Intravenous, Q12H, Pallavi Barnett [facility],PharmD, Stopped at 01/24/19 2107 vancomycin per pharmacy 1 each, 1 each, Intravenous, as indicated by pharmacokinetics, Kristin Anne PA-C * Melinda Fernandez MD - 01/25/2019 7:55 AM EST Patient ID: Patient Name: Fernando Helton Admit Date: 01/17/2019 MR #: [id number] : 1970 Current location: [facility] Physicians: Moises Patel MD (Family); Kristin [...] L CAD (coronary artery disease) CAD s/p [facility] with 1 stent in left [...] Dr. Bev Tolentino Metabolic syndrome Mood disorder ([facility]) Nasal fracture Obstructive sleep apnea noncompliant with CPAP Orthostatic dizziness with intermittent syncope Pericarditis 02/25/07; 09/23/17 Pneumomediastinum ([facility]) 01/12/2007 secondary to severe coughing spell & ruptured alveoli Rotator cuff tear, right 1997 s/p repair SLAP tear of shoulder 2011 left - s/p surgery to place [address] elevation myocardial infarction (STEMI) of anterolateral wall ([facility]) 05/09/2012 anterolateral STEMI involving left anterior descending coronary artery ([facility]) 09/25/2014 anterior Superficial thrombophlebitis of right upper [...] [place] CARDIAC CATHETERIZATION 11/24/[address] Rowland [facility] 05/27/2015 CORONARY ANGIOPLASTY 12/25/2014 PCI with balloon angioplasty by Dr. Whitney of jailed diagonal CORONARY STENT PLACEMENT 05/09/2012 Drug eluted Alpine stent in the left anterior descending by Dr. Rowland CORONARY STENT PLACEMENT 09/24/2014 Subacute stent thrombosis by Dr. Whitney. This may be in the setting of areas of restenosis within the LAD stent ETHMOIDECTOMY Bilateral 06/25/[address] 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 Cardiac arrest with ventricular fibrillation with [place] on 09/24/2014 21. Acute respiratory failure requiring [...] on to chart N.p.o. after midnight CPT: 24036 * Delmi Donis MD - 01/23/2019 3:26 PM EST [facility] Medicine Inpatient Follow-up 01/23/2019 Delmi Donis MD [facility] Patient: Fernando Helton Date of : 1970 (48 y.o.) PCP: Moises Patel MD ASSESSMENT/PLAN: Fernando Helton 48 y.o. male presented with complains of Active Problems: Chest pain ACS (acute coronary syndrome) ([facility]) PAD (peripheral artery disease) ([facility]) PLAN: Coronary artery disease - pateint denies any chest pain. patient is status post left heart cath on 01/20 he was found to have an in-stent occlusion of the mid LAD. Cardiovascular surgery has been consulted patient scheduled for CABG on 01/24/2019, Dr. Mcneil following PAD; patient seen by vascular surgery today HI: ABIs have been done. Recommendation follow-up in [...] Fernando Helton Admit Date: 01/17/2019 MR #: [id number] : 1970 Current location: [facility] Physicians: Moises Patel MD (Family); Kristin [...] replaced 09/2014 Cardiac arrest with ventricular fibrillation ([facility]) 09/25/2014 CHF (congestive heart failure), NYHA class I, chronic, diastolic ([facility]) Chronic sinusitis Claudication of right lower extremity ([facility]) Cluster headache COPD (chronic obstructive pulmonary disease) ([facility]) 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 Bev Tolentino Metabolic syndrome Mood disorder ([facility]) Nasal fracture Obstructive sleep apnea noncompliant with CPAP Orthostatic dizziness with intermittent syncope Pericarditis 02/25/07; 09/23/17 Pneumomediastinum ([facility]) 01/12/2007 secondary to severe coughing spell & ruptured alveoli Rotator cuff tear, right 1997 s/p repair SLAP tear of shoulder 2011 left - s/p surgery to place [address] elevation myocardial infarction (STEMI) of anterolateral wall ([facility]) 05/09/2012 anterolateral STEMI involving left anterior descending coronary artery ([facility]) 09/25/2014 anterior Superficial thrombophlebitis of right upper [...] Heart Cath; Surgeon: Carlo Mercedes MD; 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 Cardiac arrest with ventricular fibrillation with [place] on 09/24/2014 21. Acute respiratory failure requiring [...] on to chart N.p.o. 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 He is from home with a spouse. Hehad a heart cath on 01/20 and is a consult with cardiovascular surg and had now been scheduled for aCABG on 01/24. Will follow for any discharge need. * Delmi Donis MD - 01/22/2019 10:05 AM EST [facility] Medicine Inpatient Follow-up 01/22/2019 Delmi Donis MD [facility] Patient: Fernando Helton Date of : 1970 (48 y.o.) PCP: Moises Patel MD ASSESSMENT/PLAN: Fernando Helton 48 y.o. male presented with complains of Active Problems: Chest pain ACS (acute coronary syndrome) (HCC) PAD (peripheral artery disease) ([facility]) PLAN: Chest pain; intermittent, continue to monitor on telemetry; patient is status post left heart cath on 01/20 he was found to have an in-stent occlusion of the mid LAD. Cardiovascular surgery has been consulted Coronary artery disease; cardiovascular surgery has patient was scheduled for CABG on 01/24/2019, Dr. Mcneil following PAD; patient seen by vascular surgery today HI: ABIs have been done. Recommendation follow-up in [...] 01/22/2019 8:52 AM EST Cardiology Progress Note [facility] and Vascular Physicians Cardiology Sign-Off Discharge [...] have been negative, EKG showed old anterolateral HI with mild ST-T changes with d-dimer negative [...] Fernando Helton Admit Date: 01/17/2019 MR #: [id number] : 1970 Current location: [facility] Physicians: Moises Patel MD (Family); Kristin [...] Medical History: Diagnosis Date Acute respiratory failure ([facility]) 09/2014 requring mechanical ventilation Anxiety Bilateral lower extremity edema R > L CAD (coronary artery disease) CAD s/p [facility] with 1 stent in left main 07/2012, replaced 09/2014 Cardiac arrest with ventricular fibrillation ([facility]) 09/25/2014 CHF (congestive heart failure), NYHA class I, chronic, diastolic ([facility]) Chronic sinusitis Claudication of right lower extremity ([facility]) Cluster headache COPD (chronic obstructive pulmonary disease) ([facility]) 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 Cardiac arrest with ventricular fibrillation with [place] on 09/24/2014 21. Acute respiratory failure requiring [...] General Cardiology Inpatient Follow-up Heart & Vascular [facility] 01/21/2019 Columba Rodriguez CNP [facility] Patient: Fernando Helton Date of : 1970 (48 y.o.) Referring Provider: No ref. provider found PCP: Moises Patel MD Assessment/Plan: ACS (acute coronary syndrome) ([facility]) Assessment & Plan Patient had presented 01/20/2019 with chest tightness associated with nausea and shortness of breath. Occasionally discomfort would radiate into the left jaw. Serial troponins have been negative, EKG shows old anterolateral HI with mild ST-T changes with d-dimer negative [...] Dr. Bev Tolentino Metabolic syndrome Mood disorder ([facility]) Nasal fracture Obstructive sleep apnea noncompliant with CPAP Orthostatic dizziness with intermittent syncope Pericarditis 02/25/07; 09/23/17 Pneumomediastinum ([facility]) 01/12/2007 secondary to severe coughing spell & ruptured alveoli Rotator cuff tear, right 1998 s/p repair SLAP tear of shoulder 2011 left - s/p surgery to place [address] elevation myocardial infarction (STEMI) of anterolateral wall ([facility]) 05/09/2012 anterolateral STEMI involving left anterior descending coronary artery ([facility]) 09/25/2014 anterior Superficial thrombophlebitis of right upper [...] Heart Cath; Surgeon: Carlo Mercedes MD; Location: 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 MACHINE OPERATOR; Service: Cardiovascular IABP placement 05/09/2012 [...] injection 20 mg 20 mg Intravenous Q8H [facility] Carlo Mercedes MD 20 mg at [...] 5' 7 Wt 116.6 kg (257 lb) [id number]% BMI 40.25 kg/m Physical Examination: Physical Exam [...] Echocardiogram complete w contrast Final Result by Mgada Durán MD (12/10/2018 1714) Cardiac Catheterization Final [...] Final Result by Interface, Lab Results In [place] [facility] (01/17/2019 1219) Normal sinus rhythm Low voltage QRS Inferior infarct , age undetermined Cannot rule out Anteroseptal infarct , age undetermined Abnormal ECG ECG Cart Interpretation see physician note for interpretation. Confirmed by Brandy Kc ([id number]) on 01/17/2019 12:18:52 PM Columba Rodriguez CNP * Ashley Caruso CNP - 01/21/2019 12:30 PM EST [facility] Medicine Inpatient Follow-up 01/21/2019 Ashley Caruso CNP [facility] Patient: Fernando Helton Date of : 1970 (48 y.o.) PCP: Moises Patel MD ASSESSMENT/PLAN: Fernando Helton 48 y.o. male presented with complains of Active Problems: Chest pain ACS (acute coronary syndrome) ([facility]) PAD (peripheral artery disease) ([facility]) PLAN: Chest pain; intermittent, continue to monitor [...] PAD; patient seen by vascular surgery today HI: ABIs have been done. Recommendation follow-up in [...] 5' 7 Wt 116.6 kg (257 lb) [id number]% BMI 40.25 kg/m General Appearance: Alert, well [...] Navarro CNP - 01/20/2019 12:25 PM EST [facility] Medicine Inpatient H&P 01/20/2019 Jacinda Navarro CNP [facility] Patient: Fernando Helton Date of : [...] Problems: Chest pain ACS (acute coronary syndrome) ([facility]) Plan: Will admit patient to the telemetry [...] L CAD (coronary artery disease) CAD s/p [facility] with 1 stent in left [...] Dr. Bev Tolentino Metabolic syndrome Mood disorder ([facility]) Nasal fracture Obstructive sleep apnea noncompliant with [...] Navarro CNP - 01/19/2019 10:57 AM EST [facility] Medicine Inpatient H&P 01/19/2019 Jacinda Navarro CNP [facility] Patient: Fernando Helton Date of : [...] right leg COPD (chronic obstructive pulmonary disease) ([facility]) Fatigue GERD (gastroesophageal reflux disease) Headache HLD (hyperlipidemia) HTN (hypertension) Metabolic syndrome Mood disorder ([facility]) Obstructive sleep apnea Pneumomediastinum ([facility]) 01/2007 Rotator cuff tear, right 1997 s/p repair SLAP tear of shoulder 2011 left - s/p surgery to place [address] elevation myocardial infarction (STEMI) of anterolateral wall ([facility]) 05/09/12 Past Surgical History: Procedure Laterality Date [...] Navarro CNP - 01/18/2019 10:36 AM EST [facility] Medicine Inpatient H&P 01/18/2019 Jacinda Navarro CNP [facility] Patient: Fernando Helton Date of : [...] right leg COPD (chronic obstructive pulmonary disease) ([facility]) Fatigue GERD (gastroesophageal reflux disease) Headache HLD (hyperlipidemia) HTN (hypertension) Metabolic syndrome Mood disorder ([facility]) Obstructive sleep apnea Pneumomediastinum ([facility]) 01/2007 Rotator cuff tear, right 1997 s/p repair SLAP tear of shoulder 2011 left - s/p surgery to place [address] elevation myocardial infarction (STEMI) of anterolateral wall ([facility]) 05/09/12 Past Surgical History: Procedure Laterality Date [...] General Cardiology Clinic Follow-up Heart & Vascular [facility] 12/26/2018 Maykel Whitney MD [address] [place] [address] [facility] [id number] Patient: Fernando Helton Date of : 1970 (48 y.o.) PCP: Moises Patel MD Assessment & Plan Heart failure ([facility]) I believe he has acute on chronic [...] Final Result by Magda Durán MD (12/10/2018 0069) Review of Systems: Review of Systems Constitution: [...] than 130 mmHg. TANNER PALMA MSc, [email or web address] Neurologist & Movement Disorder Specialist [facility] (Adj Asst: Professor, [employer] Dept of Neurology) ELLIOT Peterson [id number], [facility] [address] [facility] Fax: [phone] documented in this encounter Summary Purpose Family History No Family History Records FoundNo Family History Records FoundNo Family History Records FoundNo Family History Records FoundNo Family History Records FoundNo Family History Records FoundNo Family History Records FoundNo Family History Records FoundNo Family History Records Found Advance Directives No Advanced Directives Records FoundDocuments on File Type Date Recorded Patient Precipitate Washer Expl anation Advance Directives and Livin g Will 09/27/2018 7:30 PM Documents on File Type Date Recorded Patient Precipitate Washer Expl anation Advance Directives and Livin g Will 12/18/2018 10:26 AM Documents on File Type Date Recorded Patient Precipitate Washer Expl anation Advance Directives and Livin g Will 01/17/2019 12:26 PM Latest Code Status on File Code Status Date Activated Date Inactivated Comments Full Code 01/20/2019 9:05 AM Full Code - Unverified 01/17/2019 4:34 PM 01/20/2019 9:0 5 AM Documents on File Type Date Recorded Patient Precipitate Washer Expl anation Advance Directives and Livin g Will 01/31/2019 8:54 AM Latest Code Status on File Code Status Date Activated Date Inactivated Comments Full Code 01/24/2019 10:19 AM Full Code 01/20/2019 9:05 AM 01/24/2019 10:19 AM Full Code - Unverified 01/17/2019 4:34 PM 01/20/2019 9:0 5 AM Documents on File Type Date Recorded Patient Precipitate Washer Expl anation Advance Directives and Livin g Will 02/02/2019 9:03 AM Latest Code Status on File Code Status Date Activated Date Inactivated Comments Full Code 02/02/2019 10:37 AM Full Code 01/24/2019 10:19 AM 02/02/2019 10:22 AM Full Code 01/20/2019 9:05 AM 01/24/2019 10:19 AM Documents on File Type Date Recorded Patient Precipitate Washer Expl anation Advance Directives and Livin g Will 02/06/2019 12:35 PM Latest Code Status on File Code Status Date Activated Date Inactivated Comments Full Code 02/02/2019 10:37 AM Full Code 01/24/2019 10:19 AM 02/02/2019 10:22 AM Documents on File Type Date Recorded Patient Precipitate Washer Expl anation Advance Directives and Livin g Will 02/13/2019 8:39 AM Documents on File Type Date Recorded Patient Precipitate Washer Expl anation Advance Directives and Livin g Will 02/21/2019 8:55 AM Documents on File Type Date Recorded Patient Precipitate Washer Expl anation Advance Directives and Livin g Will 02/25/2019 8:52 PM Latest Code Status on File Code Status Date Activated Date Inactivated Comments Full Code 02/02/2019 10:37 AM 02/25/2019 8:18 PM Documents on File Type Date Recorded Patient Precipitate Washer Expl anation Advance Directives and Livin g Will 02/25/2019 8:52 PM Latest Code Status on File Code Status Date Activated Date Inactivated Comments Full Code 02/02/2019 10:37 AM 02/25/2019 8:18 PM Documents on File Type Date Recorded Patient Precipitate Washer Expl anation Advance Directives and Livin g Will 03/13/2019 10:55 AM Documents on File Type Date Recorded Patient Precipitate Washer Expl anation Advance Directives and Livin g Will 03/13/2019 10:55 AM Documents on File Type Date Recorded Patient Precipitate Washer Expl anation Advance Directives and Livin g Will 09/22/2019 9:34 AM Latest Code Status on File Code Status Date Activated Date Inactivated Comments Full Code 09/22/2019 10:48 AM 09/23/2019 7:50 PM Full Code 02/02/2019 10:37 AM 02/25/2019 8:18 PM Documents on File Type Date Recorded Patient Precipitate Washer Expl anation Advance Directives and Livin g Will 10/15/2019 10:09 PM Latest Code Status on File Code Status Date Activated Date Inactivated Comments Full Code 10/16/2019 12:56 AM 10/16/2019 6:18 PM Full Code 09/22/2019 10:48 AM 09/23/2019 7:50 PM Documents on File Type Date Recorded Patient Precipitate Washer Expl anation Advance Directives and Livin g Will 12/10/2018 7:30 PM Documents on File Type Date Recorded Patient Precipitate Washer Expl anation Advance Directives and Livin g Will 10/15/2019 10:09 PM Latest Code Status on File Code Status Date Activated Date Inactivated Comments Full Code 10/16/2019 12:56 AM 10/16/2019 6:18 PM Full Code 09/22/2019 10:48 AM 09/23/2019 7:50 PM Full Code 02/02/2019 10:37 AM 02/25/2019 8:18 PM Documents on File Type Date Recorded Patient Precipitate Washer Expl anation Advance Directives and Livin g Will 01/17/2019 12:26 PM Documents on File Type Date Recorded Patient Precipitate Washer Expl anation Advance Directives and Livin g Will 01/04/2019 5:09 PM Documents on File Type Date Recorded Patient Precipitate Washer Expl anation Advance Directives and Livin g Will 12/18/2018 10:26 AM Documents on File Type Date Recorded Patient Precipitate Washer Expl anation Advance Directives and Livin g Will 09/22/2019 9:34 AM Latest Code Status on File Code Status Date Activated Date Inactivated Comments Full Code 09/22/2019 10:48 AM 09/23/2019 7:50 PM Documents on File Type Date Recorded Patient Precipitate Washer Expl anation Advance Directives and Livin g Will 05/28/2020 3:48 PM Documents on File Type Date Recorded Patient Precipitate Washer Expl anation Advance Directives and Livin g Will 05/28/2020 3:48 PM Documents on File Type Date Recorded Patient Precipitate Washer Expl anation Advance Directives and Livin g Will 06/02/2020 3:48 PM Latest Code Status on File Code Status Date Activated Date Inactivated Comments Full Code - Unverified 06/02/2020 8:25 AM 06/02/2020 5:1 8 PM Full Code 10/16/2019 12:56 AM 10/16/2019 6:18 PM Documents on File Type Date Recorded Patient Precipitate Washer Expl anation Advance Directives and Livin g Will 06/10/2020 3:48 PM Documents on File Type Date Recorded Patient Precipitate Washer Expl anation Advance Directives and Livin g Will 06/10/2020 3:48 PM Latest Code Status on File Code Status Date Activated Date Inactivated Comments Full Code - Unverified 06/02/2020 8:25 AM 06/02/2020 5:1 8 PM Full Code 10/16/2019 12:56 AM 10/16/2019 6:18 PM Documents on File Type Date Recorded Patient Precipitate Washer Expl anation Advance Directives and Livin g Will 08/06/2020 3:48 PM Documents on File Type Date Recorded Patient Precipitate Washer Expl anation Advance Directives and Livin g [...] December 07, 2022 2:37pm Hospital Course Note [facility] [address] [place] [address] NAME FERNANDO HELTON [facility] [id number] 1970 ADMIT 09/23/2017 DISCH 09/25/2017 DISCHARGE SUMMARY [...] Log into your personal health record on [email or web address] and enter K111 in the Education box to learn more about Using a Metered-Dose Inhaler: Care Instructions. Current as of: October 17, 2017 Content Version: .[id number] [employer]. Care instructions adapted under license by your healthcare professional. If you have questions about a medical condition or this instruction, always ask your healthcare professional. [employer] disclaims any warranty or liability for your [...] Log into your personal health record on [email or web address] and enter U629 in the Education box to learn more about Learning About Chronic Bronchitis. Current as of: October 17, 2017 Content Version: [id number] [employer]. Care instructions adapted under license by your healthcare professional. If you have questions about a medical condition or this instruction, always ask your healthcare professional. [employer] disclaims any warranty or liability for your use of this information. Please take your breathing treatments every 4-6 hours as directed. * Attachments The following attachments cannot be sent through Care Everywhere. * COPD Exacerbation Plan ([place]) documented in this encounter* Discharge Instr - AVS First Page* Kristin Byrnes PA-C - 01/23/2019 9:08 AM EST ALL ORDERS PER Dr. Neo Mcneil AND HIS TEAM ONLY. CALL CARDIAC SURGERY FOR ANY QUESTIONS/CONCERNSAT [phone], (OPTION #3 after 5 PM and on [...] Fernandez's office 4. Dr. Fernandez's phone number: [phone] Fernandez's fax number: [phone] HISTORY OF CONGESTIVE HEART FAILURE: 1. Check: [...] Fernandez's office 4. Dr. Fernandez's phone number: [phone] Fernandez's fax number: [phone] HISTORY OF CONGESTIVE HEART FAILURE: 1. Check: [...] be sent through Care Everywhere. * Pleurisy ([place]) documented in this encounter* Instructions* Brian Cordoba MD - 01/04/2019 prednisone for 5 days; and DuoNeb; stay away from passive smoking; follow-up with the PCP * Attachments The following attachments cannot be sent through Care Everywhere. * COPD: General Info ([place]) documented in this encounter* Discharge Instr - IP OT* Magda Brito OTR/Priyanka - 09/23/2019 3:39 PM EDT No further occupational therapy is needed. documented in this encounter Reason for Referral Status Reason Specialty Diagnoses / Procedures Referred By Contact Referred To Contact Pending Review Cardiology Diagnoses S/P CABG (coronary artery bypass graft) Procedures Stress test only, exercise Carlo Mercedes MD [address] [place] [address] Status Reason Specialty Diagnoses / Procedures Referred By Contact Referred To Contact Authorized Cardiology Diagnoses Coronary artery disease involving [place] coronary artery of [place] heart without angina pectoris Procedures Echocardiogram complete Anita Rowland MD [address] [place] [address] Status Reason Specialty Diagnoses / Procedures Referred By Contact Referred To Contact Authorized Cardiology Diagnoses TIA (transient ischemic attack) Procedures Cardiac event monitor Anita Rowland MD [address] [place] [address] Status Reason Specialty Diagnoses / Procedures Referre d By Contact Referred To Contact Closed Cardiology Diagnoses TIA (transient ischemic attack) Procedures Cardiac event monitor Anita Rowland MD [address] [place] [address] Status Reason Specialty Diagnoses / Procedures Referred By Contact Referred To Contact Authorized Radiology Diagnoses Chronic systolic congestive heart failure (HCC) Procedures MR Cardiac Morphology With And Without Contrast with Velocity Flow Patricia Louis, CHRISTIAN [address] [place] [address] Status Reason Specialty Diagnoses / Procedures Referre d By Contact Referred To Contact Closed Radiology Diagnoses NSVT (nonsustained ventricular tachycardia) ([facility]) Abnormal EKG Procedures NM Myocardial Perfusion Multiple SPECT Anita Rowland MD [address] [place] [address] Status Reason Specialty Diagnoses / Procedures Re ferred By Contact Referred To Contact Closed Cardiology Diagnoses Other specified complications of surgical and medical care, not elsewhere classified, initial encounter Procedures Ultrasound duplex arterial arm left Anita Rowland MD [address] [place] [address] Status Reason Specialty Diagnoses / Procedures Referred By Contact Referred To Contact Pending Review Cardiology Diagnoses Other specified complications of surgical and medical care, not elsewhere classified, initial encounter Procedures Ultrasound duplex arterial arm left nAita Rowland MD [address] [place] [address] Chief Complaint and Reason for Visit Chief [...] with Velocity Flow Patricia Louis CNS [address] [place] [address] Status Reason Specialty Diagnoses / Procedures Referre [...] artery bypass graft) Kristin Walker PA-C [address] [place] [address] Cardio Pulm [address] [place] [address] Status Reason Specialty Diagnoses / Procedures Referred By Contact Referred To Contact Pending Review Cardiology Diagnoses S/P CABG (coronary artery bypass graft) Procedures Stress test only, exercise Carlo Mercedes MD [address] [place] [address] Reason Comments Heart Problem Status Reason Specialty Diagnoses / Procedures Referred By Contact Referred To Contact Authorized Specialty Services Required/Patie nt's Best Interest Cardiac Rehabilitation Diagnoses S/P CABG (coronary artery bypass graft) Kristin Walker PA-C [address] [place] [address] Cardio Pulm [address] [place] [address] Reason Comments Follow-up Follow up/Swelling Reason Comments Follow-up Overdue 6 monhth Status Reason Specialty Diagnoses / Procedures Referre d By Contact Referred To Contact Diagnoses Near syncope Status Reason Specialty Diagnoses / Procedures Referred By Contact Referred To Contact Pending Review Cardiology Diagnoses Chronic systolic heart failure (HCC) Hypertension, unspecified type Coronary artery disease involving [place] coronary artery of [place] heart without angina pectoris Procedures Echocardiogram complete w contrast Echocardiogram complete Patricia Louis CNS [address] [place] [address] Reason Onset Date Comments Medication Refill 04/12/2020 Reason Onset Date Comments Medication Refill 04/13/2020 Status Reason Specialty Diagnoses / Procedures Referred By Contact Referred To Contact Authorized Radiology Diagnoses Chronic systolic congestive heart failure (HCC) Procedures MR Cardiac Morphology With And Without Contrast with Velocity Flow Patricia Louis, SENIOR CONSTRUCTION PROJECT MANAGER [address] [place] [address] Status Reason Specialty Diagnoses / Procedures Referre [...] To Contact Diagnoses Acute CVA (cerebrovascular accident) ([facility]) TIA (transient ischemic attack) Status Reason Specialty Diagnoses / Procedures Referre d By Contact Referred To Contact Closed Radiology Diagnoses NSVT (nonsustained ventricular tachycardia) ([facility]) Abnormal EKG Procedures NM Myocardial Perfusion Multiple SPECT Anita Rowland MD [address] [place] [address] Status Reason Specialty Diagnoses / Procedures Referre [...] arterial arm left Anita Rowland MD [address] [place] [address] Reason Onset Date Comments Medication Refill 06/10/2020 Status Reason Specialty Diagnoses / Procedures Referred By Contact Referred To Contact Pending Review Cardiology Diagnoses Other specified complications of surgical and medical care, not elsewhere classified, initial encounter Procedures Ultrasound duplex arterial arm left Anita Rowland MD [address] [place] [address] Reason Comments Medication Refill Reason Onset Date [...] section and content) DATE CREATED AUTHOR 03/14/2018 [facility] DATE CREATED AUTHOR AUTHOR'S ORGANIZ ATION 04/27/2020 [facility]3] DATE CREATED AUTHOR AUTHOR'S ORGANIZ ATION 05/23/2020 [place] DATE CREATED AUTHOR AUTHOR'S ORGANIZ ATION 04/28/2021 [facility] DATE CREATED AUTHOR AUTHOR'S ORGANIZ ATION 11/12/2021 [facility] DATE CREATED AUTHOR AUTHOR'S ORGANIZ ATION 11/14/2021 [facility] DATE CREATED AUTHOR AUTHOR'S ORGANIZ ATION 01/02/2022 [facility] DATE CREATED AUTHOR AUTHOR'S ORGANIZ ATION 06/23/2022 [facility] DATE CREATED AUTHOR AUTHOR'S ORGANIZ ATION 12/20/2022 [facility] Annie Kapadia RN - 09/27/2018 8:19 PM Annie Fu RN - 09/27/2018 8:17 PM Nathanael Pavon MD - 09/27/2018 8:13 PM Annie Fu RN - 09/27/2018 7:48 PM EDT ED Notes (unrecognized secti on and content) Adjusted PT in bed Physician at bedside. Updated PT on medical plan. Associated Order(s): ECG 12 Lead ED PROVIDER NOTE [facility] NAME: Fernando Helton AGE: 48 y.o. : 1970 VISIT DATE: 09/27/2018 CSN: [id number] PCP: Moises Patel MD Chief Complaint Patient [...] 1998 CAD (coronary artery disease) CAD s/p [facility] with 1 stent in left [...] file Gets together: Not on file Attends sabianist service: Not on file Active member of [...] ms QTC Calculation (Bezet) 425 ms P [place] 62 degrees R [place] 0 degrees T [place] 72 degrees POC Basic Metabolic Panel Result [...] in stable condition. Follow-up Information 1. Moises Ptael MD. Specialty: Family Medicine Why: If symptoms worsen [address] [facility] [address] Contact information for after-discharge care Follow-up information [...] SIMILAR TO WHEN HE HAD HIS PRIOR HI. PT LOCATES IT IN THE MIDDLE OF HIS CHEST AND RADIATES TO HIS BACK AND JAW. PT STATES HE IS SOB, SUFFERS COPD BUT NOT O2 DEPENDANT. PT IS ABLE TO SPEAK IN COMPLETE SENTENCES WITHOUT DIFFICULTY. PT DOES HAVE SOME AUDIBLE WHEEZING. PT IS WARM AND DRY ED PROVIDER NOTE [facility] NAME: Fernando Helton AGE: 48 y.o. : 1970 VISIT DATE: 01/17/2019 CSN: [id number] PCP: Moises Patel MD Chief Complaint Patient [...] right leg COPD (chronic obstructive pulmonary disease) ([facility]) Fatigue GERD (gastroesophageal reflux disease) Headache HLD (hyperlipidemia) HTN (hypertension) Metabolic syndrome Mood disorder ([facility]) Obstructive sleep apnea Pneumomediastinum ([facility]) 01/2007 Rotator cuff tear, right 1997 s/p repair SLAP tear of shoulder 2011 left - s/p surgery to place [address] elevation myocardial infarction (STEMI) of anterolateral wall ([facility]) 05/09/12 Past Surgical History: Procedure Laterality Date [...] file Gets together: Not on file Attends sabianist service: Not on file Active member of [...] ms QTC Calculation (Bezet) 425 ms P [place] 67 degrees R [place] 2 degrees T [place] 65 degrees CBC Auto Differential Result Value [...] rhythm rate of 73 beats per minutes IA interval 164 ms QRS duration 86 ms [...] MESSAGE FOR HER TO CALL BACK. 22:53 [facility] ED Physician Note: NAME: Fernando Helton 48 y.o. CSN: [id number] PCP: Moises Patel MD History: Chief Complaint: Shortness of Breath HPI: The history was obtained from the patient. He is a 48 y.o. male who presents with a chief complaint of Shortness of Breath. Patient reports that he underwent coronary artery bypass grafting over 4 weeks ago here at [facility]. Patient reports that around 1 PM he developed sudden onset of dyspnea. Patient reports this to be accompanied by left lung discomfort. Patient describes discomfort as sharp. Shortness of breath is present at rest and worsens with movement. PMHx: Past Medical History: Diagnosis Date Acute respiratory failure ([facility]) 09/2014 requring mechanical ventilation Anxiety Bilateral lower extremity edema R > L CAD (coronary artery disease) CAD s/p [facility] with 1 stent in left main 07/2012, replaced 09/2014 Cardiac arrest with ventricular fibrillation ([facility]) 09/25/2014 CHF (congestive heart failure), NYHA class I, chronic, diastolic ([facility]) Chronic sinusitis Claudication of right lower extremity ([facility]) Cluster headache COPD (chronic obstructive pulmonary disease) ([facility]) 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 Effient Deviated [...] elevation myocardial infarction (STEMI) of anterolateral wall ([facility]) 05/09/2012 anterolateral STEMI involving left anterior descending coronary artery ([facility]) 09/25/2014 anterior Superficial thrombophlebitis of right upper [...] Heart Cath; Surgeon: Carlo Mercedes MD; Location: 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; Service: Cardiovascular IABP placement 05/09/2012 [...] file Gets together: Not on file Attends sabianist service: Not on file Active member of [...] Procedure Abnormality Status --------- ------ CBC Auto Differential[[id number]] Abnormal Final result Please view results for [...] No diagnosis found. Disposition: Fausto Alejandro M.D. [facility] Emergency Department Fausto Alejandro MD 02/25/19 2249 PT STATES SHORTNESS OF BREATH STARTED AT 1PM TODAY, WITH LEFT SIDE BACK PAIN, PT STATES HAD BYPASS SURGERY FIVE WEEKS AGO AND AT THAT TIME HAD FLUID AROUND LEFT LUNG AND THIS FEELS LIKE THAT Bed: 09 Expected date: Expected time: Means of arrival: Comments: 2nd patient documented in this encounter ED PROVIDER NOTE [facility] NAME: Fernando Helton AGE: 49 y.o. : 1970 VISIT DATE: 10/15/2019 CSN: [id number] PCP: Moises Patel MD Chief Complaint Patient [...] Dr. Bev Tolentino Metabolic syndrome Mood disorder ([facility]) Nasal fracture Obstructive sleep apnea noncompliant with CPAP Orthostatic dizziness with intermittent syncope Pericarditis 02/25/07; 09/23/17 Pneumomediastinum ([facility]) 01/12/2007 secondary to severe coughing spell & ruptured alveoli Rotator cuff tear, right 1998 s/p repair SLAP tear of shoulder 2011 left - s/p surgery to place [address] elevation myocardial infarction (STEMI) of anterolateral wall ([facility]) 05/09/2012 anterolateral STEMI involving left anterior descending coronary artery ([facility]) 09/25/2014 anterior Superficial thrombophlebitis of right upper [...] Heart Cath; Surgeon: Carlo Mercedes MD; 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 Coordination: Izahxh-Xnpx-Avpbco Test normal. Psychiatric: Attention and Perception: Attention [...] ms QTC Calculation (Bezet) 461 ms P Still[place] 61 degrees R Stillwater -4 degrees T [place] 80 degrees POC Glucose Result Value Ref [...] Order(s): ECG 12- Lead ED PROVIDER NOTE [facility] NAME: Fernando Helton AGE: 48 y.o. : 1970 VISIT DATE: 01/04/2019 CSN: [id number] PCP: Moises Patel MD Chief Complaint Patient presents with Shortness of Breath x2 months CC: Waxing and waning shortness of breath x2 months HPI: Patient with a past medical history of COPD; presented to the ER with waxing and waning shortness of breath going on for 2 months; no significant expectoration; shortness of breath gets worse after ambulation; patient also history of HI in the past requiring stent placement 2012 and 2014; patient follows up with the multiple launch rocket system crewmember; recently had echocardiogram; that as per him shows ejection fraction around 46%; recently had a cardiac MRI; multiple launch rocket system crewmember thinks that he does not have CHF; patient does have a leg edema; and has been prescribed hydrochlorothiazide; which she has been taking; but still getting short of breath; experiences of wheezing; use albuterol and nebulization; not feeling better; no fever no chills Past Medical History: Diagnosis Date Ankle swelling Anxiety Appendicitis 1998 s/p appendectomy 1998 CAD (coronary artery disease) CAD s/p [facility] with 1 stent in left main 07/2012, replaced 09/2014 Chest pain Circulation problem right leg COPD (chronic obstructive pulmonary disease) ([facility]) Fatigue GERD (gastroesophageal reflux disease) Headache HLD (hyperlipidemia) HTN (hypertension) Metabolic syndrome Mood disorder ([facility]) Obstructive sleep apnea Pneumomediastinum ([facility]) 01/2007 Rotator cuff tear, right 1997 s/p repair SLAP tear of shoulder 2011 left - s/p surgery to place [address] elevation myocardial infarction (STEMI) of anterolateral wall ([facility]) 05/09/12 Past Surgical History: Procedure Laterality Date [...] file Gets together: Not on file Attends sabianist service: Not on file Active member of [...] with signage outside this patient's room. This adult care provider performs hand hygiene and enters the patient [...] Wu on virtual screen ED PROVIDER NOTE [facility] NAME: Fernando Helton AGE: 49 y.o. : 1970 VISIT DATE: 09/22/2019 CSN: [id number] PCP: Moises Patel MD Chief Complaint Patient [...] L CAD (coronary artery disease) CAD s/p [facility] with 1 stent in left main 07/2012, replaced 09/2014 Cardiac arrest with ventricular fibrillation ([facility]) 09/25/2014 CHF (congestive heart failure), NYHA class I, chronic, diastolic ([facility]) Chronic sinusitis Claudication of right lower extremity ([facility]) Cluster headache COPD (chronic obstructive pulmonary disease) ([facility]) 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 Bev Tolentino Metabolic syndrome Mood disorder ([facility]) Nasal fracture Obstructive sleep apnea noncompliant with CPAP Orthostatic dizziness with intermittent syncope Pericarditis 02/25/07; 09/23/17 Pneumomediastinum ([facility]) 01/12/2007 secondary to severe coughing spell & ruptured alveoli Rotator cuff tear, right 1998 s/p repair SLAP tear of shoulder 2011 left - s/p surgery to place [address] elevation myocardial infarction (STEMI) of anterolateral wall ([facility]) 05/09/2012 anterolateral STEMI involving left anterior descending coronary artery ([facility]) 09/25/2014 anterior Superficial thrombophlebitis of right upper extremity 12/26/2006 Past Surgical History: Procedure Laterality Date APPENDECTOMY 1998 BONE MARROW BIOPSY W/ ASPIRATION Left 11/27/2016 L posterior iliac crest; Dr. 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; Service: Cardiovascular IABP placement 05/09/2012 [...] file Gets together: Not on file Attends sabianist service: Not on file Active member of [...] normal sinus rhythm rate of 67 bpm IA interval 172 ms QRS duration 86 ms [...] Fernando Helton Admit Date: [id number] MR #: [id number] : 1970 Physicians: Moises Patel MD (Family); [...] Medical History: Diagnosis Date Acute respiratory failure ([facility]) 09/2014 requring mechanical ventilation Anxiety Bilateral lower extremity edema R > L CAD (coronary artery disease) CAD s/p [facility] with 1 stent in left main 07/2012, replaced 09/2014 Cardiac arrest with ventricular fibrillation ([facility]) 09/25/2014 CHF (congestive heart failure), NYHA class I, chronic, diastolic ([facility]) Chronic sinusitis Claudication of right lower extremity ([facility]) Cluster headache COPD (chronic obstructive pulmonary disease) ([facility]) 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 Bev Tolentino Metabolic syndrome Mood disorder ([facility]) Nasal fracture Obstructive sleep apnea noncompliant with CPAP Orthostatic dizziness with intermittent syncope Pericarditis 02/25/07; 09/23/17 Pneumomediastinum ([facility]) 01/12/2007 secondary to severe coughing spell & ruptured alveoli Rotator cuff tear, right 1997 s/p repair SLAP tear of shoulder 2011 left - s/p surgery to place [address] elevation myocardial infarction (STEMI) of anterolateral wall ([facility]) 05/09/2012 anterolateral STEMI involving left anterior descending coronary artery ([facility]) 09/25/2014 anterior Superficial thrombophlebitis of right upper extremity 12/26/2006 Past Surgical History: Procedure Laterality Date APPENDECTOMY 1998 BONE MARROW BIOPSY W/ ASPIRATION Left 11/27/2016 L posterior iliac crest; Dr. 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 Bev Tolentino Metabolic syndrome Mood disorder ([facility]) Nasal fracture Obstructive sleep apnea noncompliant with CPAP Orthostatic dizziness with intermittent syncope Pericarditis 02/25/07; 09/23/17 Pneumomediastinum ([facility]) 01/12/2007 secondary to severe coughing spell & ruptured alveoli Rotator cuff tear, right 1998 s/p repair SLAP tear of shoulder 2011 left - s/p surgery to place [address] elevation myocardial infarction (STEMI) of anterolateral wall ([facility]) 05/09/2012 anterolateral STEMI involving left anterior descending coronary artery ([facility]) 09/25/2014 anterior Superficial thrombophlebitis of right upper [...] Heart Cath; Surgeon: Carlo Mercedes MD; 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 Associated Order(s): IP CONSULT TO RECRUITER MANAGER Met with patient for Diabetes self management [...] a barrier and family/caregiver support is a honey grader and blender for return to prior level of function. The patient's education level is a honey grader and blender and awareness of own capacity and performance is a honey grader and blender to return to prior level of function. 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 Past Medical History: Diagnosis Date Acute respiratory failure (HCC) 09/2014 requring mechanical ventilation Anxiety Bilateral lower extremity edema R > L CAD (coronary artery disease) CAD s/p [facility] with 1 stent in left main 07/2012, replaced 09/2014 Cardiac arrest with ventricular fibrillation ([facility]) 09/25/2014 CHF (congestive heart failure), NYHA class I, chronic, diastolic ([facility]) Chronic sinusitis Claudication of right lower extremity ([facility]) Cluster headache COPD (chronic obstructive pulmonary disease) ([facility]) 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 Bev Tolentino Metabolic syndrome Mood disorder ([facility]) Nasal fracture Obstructive sleep apnea noncompliant with CPAP Orthostatic dizziness with intermittent syncope Pericarditis 02/25/07; 09/23/17 Pneumomediastinum ([facility]) 01/12/2007 secondary to severe coughing spell & ruptured alveoli Rotator cuff tear, right 1997 s/p repair SLAP tear of shoulder 2011 left - s/p surgery to place [address] elevation myocardial infarction (STEMI) of anterolateral wall ([facility]) 05/09/2012 anterolateral STEMI involving left anterior descending coronary artery ([facility]) 09/25/2014 anterior Superficial thrombophlebitis of right upper [...] Heart Cath; Surgeon: Carlo Mercedes MD; 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 provider found (referring) Assessment and Plan: PAD (peripheral artery disease) ([facility]) Assessment & Plan Vascular was consulted regarding [...] elevation myocardial infarction (STEMI) of anterolateral wall ([facility]) 05/09/2012 anterolateral STEMI involving left anterior descending coronary artery ([facility]) 09/25/2014 anterior Superficial thrombophlebitis of right upper [...] file Gets together: Not on file Attends sabianist service: Not on file Active member of [...] Fernando Helton Admit Date: 01/17/2019 MR #: [id number] : 1970 Current location: [facility] Physicians: Moises Patel MD (Family); Kristin [...] replaced 09/2014 Cardiac arrest with ventricular fibrillation ([facility]) 09/25/2014 CHF (congestive heart failure), NYHA class I, chronic, diastolic ([facility]) Chronic sinusitis Claudication of right lower extremity ([facility]) Cluster headache COPD (chronic obstructive pulmonary disease) ([facility]) 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 Bev Tolentino Metabolic syndrome Mood disorder ([facility]) Nasal fracture Obstructive sleep apnea noncompliant with CPAP Orthostatic dizziness with intermittent syncope Pericarditis 02/25/07; 09/23/17 Pneumomediastinum ([facility]) 01/12/2007 secondary to severe coughing spell & ruptured alveoli Rotator cuff tear, right 1997 s/p repair SLAP tear of shoulder 2011 left - s/p surgery to place [address] elevation myocardial infarction (STEMI) of anterolateral wall ([facility]) 05/09/2012 anterolateral STEMI involving left anterior descending coronary artery ([facility]) 09/25/2014 anterior Superficial thrombophlebitis of right upper [...] Eliquis for in-stent thrombosis, who presented to [facility] emergency department on 01/17/2019 with worsening chest [...] Melanoma Brother SOCIAL HISTORY: Patient resides in [place] in a two-story home with approximately 15 [...] file Gets together: Not on file Attends sabianist service: Not on file Active member of [...] patient presented to [facility] and was admitted for further evaluation [...] CONSULT TO CARDIOLOGY Reason for consult-chest pain [place]-patient is a pleasant 48-year-old man with medical history significant for CAD status post PCI to LAD in 2012 for HI presentation-presented again in 2014 with in-stent restenosis-underwent [...] have been negative, EKG shows old anterolateral HI with mild ST-T changes, d-dimer is negative [...] 1998 CAD (coronary artery disease) CAD s/p [facility] with 1 stent in left main 07/2012, replaced 09/2014 Chest pain Circulation problem right leg COPD (chronic obstructive pulmonary disease) ([facility]) Fatigue GERD (gastroesophageal reflux disease) Headache HLD (hyperlipidemia) HTN (hypertension) Metabolic syndrome Mood disorder ([facility]) Obstructive sleep apnea Pneumomediastinum ([facility]) 01/2007 Rotator cuff tear, right 1997 s/p repair SLAP tear of shoulder 2011 left - s/p surgery to place [address] elevation myocardial infarction (STEMI) of anterolateral wall ([facility]) 05/09/12 Past Surgical History: Procedure Laterality Date [...] file Gets together: Not on file Attends sabianist service: Not on file Active member of [...] similar to his pain prior to the HI will plan for a left heart cath [...] Interventional Cardiology Clinic Consult Heart & Vascular [facility] 10/15/2019 Anita Rowland MD [address] [place] [id number] Patient: Fernando Helton Date of : 1970 [...] current medical regiment. Coronary artery disease involving [place] coronary artery of [place] heart without angina pectoris Patient has a [...] 2D echocardiogram this morning reviewed with Dr. Buneo demonstrates LV ejection fraction of 40% with [...] CPAP therapy. COPD (chronic obstructive pulmonary disease) ([facility]) Assessment & Plan Patient reports he has discontinued tobacco abuse. Coronary artery disease involving [place] coronary artery of [place] heart without angina pectoris Assessment & Plan [...] Final Result by Interface, Lab Results In [place] [facility] (10/16/2019 0822) Echocardiogram complete w contrast [...] Medical History: Diagnosis Date Acute respiratory failure ([facility]) 09/2014 requring mechanical ventilation Anxiety Bilateral lower extremity edema R > L CAD (coronary artery disease) CAD s/p [facility] with 1 stent in left main 07/2012, replaced 09/2014 Cardiac arrest with ventricular fibrillation ([facility]) 09/25/2014 CHF (congestive heart failure), NYHA class I, chronic, diastolic ([facility]) Chronic sinusitis Claudication of right lower extremity ([facility]) Cluster headache COPD (chronic obstructive pulmonary disease) ([facility]) 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 Bev Tolentino Metabolic syndrome Mood disorder ([facility]) Nasal fracture Obstructive sleep apnea noncompliant with CPAP Orthostatic dizziness with intermittent syncope Pericarditis 02/25/07; 09/23/17 Pneumomediastinum ([facility]) 01/12/2007 secondary to severe coughing spell & ruptured alveoli Rotator cuff tear, right 1997 s/p repair SLAP tear of shoulder 2011 left - s/p surgery to place [address] elevation myocardial infarction (STEMI) of anterolateral wall ([facility]) 05/09/2012 anterolateral STEMI involving left anterior descending coronary artery ([facility]) 09/25/2014 anterior Superficial thrombophlebitis of right upper [...] Heart Cath; Surgeon: Carlo Mercedes MD; 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 The patient's home setup is a honey grader and blender, family / caregiver support is a honey grader and blender for return to prior level of function. The patient's compliance is a honey grader and blender, awareness of own capacity and performance is a honey grader and blender to return to prior level of function. [...] double vision, but none during OT eval. [id number] WNL. ADL/IADL Feeding: Independent Grooming : Independent [...] dizziness.. Prior Level of Function Level of [place]: Independent with ADLs and functional transfers, Independent with homemaking with ambulation Lives With: Spouse Receives Help From: Family ADL Assistance: Independent Homemaking Assistance: Independent Vocational: On disability Comments: Drives. Independent in community. Past Medical History: Diagnosis Date Acute respiratory failure ([facility]) 09/2014 requring mechanical ventilation Anxiety Bilateral lower extremity edema R > L CAD (coronary artery disease) CAD s/p [facility] with 1 stent in left main 07/2012, replaced 09/2014 Cardiac arrest with ventricular fibrillation ([facility]) 09/25/2014 CHF (congestive heart failure), NYHA class I, chronic, diastolic ([facility]) Chronic sinusitis Claudication of right lower extremity ([facility]) Cluster headache COPD (chronic obstructive pulmonary disease) ([facility]) 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 Bev Tolentino Metabolic syndrome Mood disorder ([facility]) Nasal fracture Obstructive sleep apnea noncompliant with CPAP Orthostatic dizziness with intermittent syncope Pericarditis 02/25/07; 09/23/17 Pneumomediastinum ([facility]) 01/12/2007 secondary to severe coughing spell & ruptured alveoli Rotator cuff tear, right 1997 s/p repair SLAP tear of shoulder 2011 left - s/p surgery to place [address] elevation myocardial infarction (STEMI) of anterolateral wall ([facility]) 05/09/2012 anterolateral STEMI involving left anterior descending coronary artery ([facility]) 09/25/2014 anterior Superficial thrombophlebitis of right upper [...] Heart Cath; Surgeon: Carlo Mercedes MD; 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 Past Medical History: Diagnosis Date Acute respiratory failure ([facility]) 09/2014 requring mechanical ventilation Anxiety Bilateral lower extremity edema R > L CAD (coronary artery disease) CAD s/p [facility] with 1 stent in left main 07/2012, replaced 09/2014 Cardiac arrest with ventricular fibrillation ([facility]) 09/25/2014 CHF (congestive heart failure), NYHA class I, chronic, diastolic ([facility]) Chronic sinusitis Claudication of right lower extremity ([facility]) Cluster headache COPD (chronic obstructive pulmonary disease) ([facility]) 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 Bev Tolentino Metabolic syndrome Mood disorder ([facility]) Nasal fracture Obstructive sleep apnea noncompliant with CPAP Orthostatic dizziness with intermittent syncope Pericarditis 02/25/07; 09/23/17 Pneumomediastinum ([facility]) 01/12/2007 secondary to severe coughing spell & ruptured alveoli Rotator cuff tear, right 1997 s/p repair SLAP tear of shoulder 2011 left - s/p surgery to place [address] elevation myocardial infarction (STEMI) of anterolateral wall ([facility]) 05/09/2012 anterolateral STEMI involving left anterior descending coronary artery ([facility]) 09/25/2014 anterior Superficial thrombophlebitis of right upper extremity 12/26/2006 Past Surgical History: Procedure Laterality Date APPENDECTOMY 1998 BONE MARROW BIOPSY W/ ASPIRATION Left 11/27/2016 L posterior iliac crest; Dr. 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 Time statement: A total of 70 minutes were spent on this encounter either in the patient's room or on the patient's hospital unit and over half of that time was spent on [id number] counseling and/or coordination of care. TANNER PALMA MSc, . [email or web address] Staff Neurologist & Movement Disorder Specialist [facility] (Adj Asst: Professor, [facility] [employer] Dept of Neurology) [id number], [address] Fax: [phone] NEUROLOGY NOTE [facility] [place] [address] floor [place] [address] Fax: [phone] Service date: 09/23/2019 Admit date: 09/22/2019 Fernando [...] review with Dr. Palma. Ginny Rushing, MSN, ENVIRONMENTAL SERVICES WORKER [facility] Neurology Associated Order(s): IP CONSULT [...] Discharge Readiness Barriers to Discharge: No barriers [facility] Disposition D/C Disposition: Home Speech Pathology [...] Level of Function: Prior Function Primary Language: [place] Employment Status: Disabled Education Level: (11th grade) Prior Cognitive Deficit: (memory deficits following 3 heart attacks and CABG) Past Medical History: Diagnosis Date Acute respiratory failure ([facility]) 09/2014 requring mechanical ventilation Anxiety Bilateral lower extremity edema R > L CAD (coronary artery disease) CAD s/p [facility] with 1 stent in left main 07/2012, replaced 09/2014 Cardiac arrest with ventricular fibrillation ([facility]) 09/25/2014 CHF (congestive heart failure), NYHA class I, chronic, diastolic ([facility]) Chronic sinusitis Claudication of right lower extremity ([facility]) Cluster headache COPD (chronic obstructive pulmonary disease) ([facility]) 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 Bev Tolentino Metabolic syndrome Mood disorder ([facility]) Nasal fracture Obstructive sleep apnea noncompliant with CPAP Orthostatic dizziness with intermittent syncope Pericarditis 02/25/07; 09/23/17 Pneumomediastinum ([facility]) 01/12/2007 secondary to severe coughing spell & ruptured alveoli Rotator cuff tear, right 1998 s/p repair SLAP tear of shoulder 2011 left - s/p surgery to place [address] elevation myocardial infarction (STEMI) of anterolateral wall ([facility]) 05/09/2012 anterolateral STEMI involving left anterior descending coronary artery ([facility]) 09/25/2014 anterior Superficial thrombophlebitis of right upper [...] Heart Cath; Surgeon: Carlo Mercedes MD; 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 Associated Problem(s): Coronary artery disease involving [place] coronary artery of [place] heart without angina pectoris Patient has a [...] Completed Call placed to Dr. Martines about [place] line possibly not giving correct information based [...] OF SURGEON: Dr. Neo Bose. MD Tarun Bread Room Hand: Kristin Walker PA-C ANESTHESIOLOGIST: Dr. Jef Martines TYPE OF ANESTHESIA: General PRE-OP DIAGNOSIS: Sclerotic heart disease of the [place] coronary arteries In-stent restenosis of the LAD. [...] y.o. year-old male who presented with acute HI in the anterior wall after in-stent restenosis [...] LAD via proximal and distal control. The [employer] stabilization device was utilized to immobilize the [...] complexity, Kristin CHOUDHURY, was utilized as my assistant dean.' I broke scrub and went to update [...] were discussed and spouse was identified as traffic personnel supervisor. Use of Password was discussed CVICU visiting policies were discussed. Multidisciplinary steam meter reader rounds were reviewed and family members/caregivers were [...] have been negative, EKG showed old anterolateral HI with mild ST-T changes with d-dimer negative [...] L CAD (coronary artery disease) CAD s/p [facility] with 1 stent in left main 07/2012, replaced 09/2014 Cardiac arrest with ventricular fibrillation ([facility]) 09/25/2014 CHF (congestive heart failure), NYHA class I, chronic, diastolic ([facility]) Chronic sinusitis Claudication ([facility]) Claudication of right lower extremity ([facility]) Cluster headache COPD (chronic obstructive pulmonary disease) ([facility]) 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 Bev Tolentino Metabolic syndrome Mood disorder ([facility]) Nasal fracture Obstructive sleep apnea noncompliant with CPAP Orthostatic dizziness with intermittent syncope Pericarditis 02/25/07; 09/23/17 Pneumomediastinum ([facility]) 01/12/2007 secondary to severe coughing spell & ruptured alveoli Rotator cuff tear, right 1998 s/p repair SLAP tear of shoulder 2011 left - s/p surgery to place [address] elevation myocardial infarction (STEMI) of anterolateral wall ([facility]) 05/09/2012 anterolateral STEMI involving left anterior descending coronary artery ([facility]) 09/25/2014 anterior Superficial thrombophlebitis of right upper [...] Estimated Needs: 1800-2200cal Method for Estimating Needs: [id number] Total Protein Estimated Needs: 86gms Method for [...] CT surgery for SPARKS to LAD bypass medical lab scientist nurse here for patient, advised to give Effient and ASA along with other cardiac meds this morning, advised to stop heparin at this time, off unit with field laborer nurse Problem: Actual or potential alteration in [...] starting ACS heparin protocol. Updated Dr. Meron Ropre, who requested stat d-dimer, and start the heparin and nitro paste. Consulted with Denisse Caruso PREPRESS OPERATOR to ensure ordering correct heparin order set. [...] the surgery. I communicated with cardiothoracic Physician Environmental Services Supervisor Jacob and he recommends on discharging patient outpatient follow-up. In the ED patient is awake alert his vitals are stable pulse ox continues to be 97% room air he is afebrile blood pressure 131/78. Discharged with encouragement to call cardiothoracic surgery tomorrow and was to return to the ED for any worsening symptom and he expressed understanding. documented in this encounter Seen by [place] [facility] post discharge and reviewed AVS. [...] therapy. Associated Problem(s): Coronary artery disease involving [place] coronary artery of [place] heart without angina pectoris Patient has a [...] otherwise. documented in this encounter Seen by [place] [facility] post discharge and reviewed AVS. [...] Fernando Helton Admit Date: [id number] MR #: [id number] : 1970 The H&P has been reviewed and the patient has been examined. I concur with the findings of the H&P. There are no significant changes. It is appropriate to proceed with the planned procedure. Carlo Mercedes MD 01/20/2019 8:24 AM Reason for consult-chest pain [place]-patient is a pleasant 48-year-old man with medical history significant for CAD status post PCI to LAD in 2012 for HI presentation-presented again in 2014 with in-stent restenosis-underwent [...] have been negative, EKG shows old anterolateral HI with mild ST-T changes, d-dimer is negative [...] right leg COPD (chronic obstructive pulmonary disease) ([facility]) Fatigue GERD (gastroesophageal reflux disease) Headache HLD (hyperlipidemia) HTN (hypertension) Metabolic syndrome Mood disorder ([facility]) Obstructive sleep apnea Pneumomediastinum ([facility]) 01/2007 Rotator cuff tear, right 1997 s/p repair SLAP tear of shoulder 2011 left - s/p surgery to place [address] elevation myocardial infarction (STEMI) of anterolateral wall ([facility]) 05/09/12 Past Surgical History: Procedure Laterality Date [...] file Gets together: Not on file Attends sabianist service: Not on file Active member of [...] similar to his pain prior to the HI will plan for a left heart cath on 01/20/2019 - Continue heparin as per ACS protocol with a target APTT of 60 to 80 seconds - Okay to use Nitropaste - Continue aspirin, Effient, statin - Continue Coreg, enalapril and Lasix Electronically Signed by: Carlo Mercedes M.D 01/18/19 8:19 AM [facility] Medicine Inpatient H&P 01/17/2019 Meron Roper MD [facility] Patient: Fernando Helton Date of : [...] 1998 CAD (coronary artery disease) CAD s/p [facility] with 1 stent in left main 07/2012, replaced 09/2014 Chest pain Circulation problem right leg COPD (chronic obstructive pulmonary disease) ([facility]) Fatigue GERD (gastroesophageal reflux disease) Headache HLD (hyperlipidemia) HTN (hypertension) Metabolic syndrome Mood disorder ([facility]) Obstructive sleep apnea Pneumomediastinum ([facility]) 01/2007 Rotator cuff tear, right 1997 s/p repair SLAP tear of shoulder 2011 left - s/p surgery to place [address] elevation myocardial infarction (STEMI) of anterolateral wall ([facility]) 05/09/12 Past Surgical History: Procedure Laterality Date [...] Reviewed 7:22 PM documented in this encounter [facility] Medicine Inpatient H&P 10/16/2019 Nallely Goodwin CNP [facility] Patient: Fernando Helton Date of : 1970 (49 y.o.) PCP: Moises Patel MD ASSESSMENT/PLAN: Fernando Helton 49 y.o. male with history of HTN, HLD, CAD sp 1v CABG, COPD, DM Type II, ISAC non compliant CPAP, cardiac arrest VFib in 2014, chronic diastolic heart failure, GERD. Active Problems: Near syncope Coronary artery disease involving [place] coronary artery of [place] heart without angina pectoris COPD (chronic obstructive pulmonary disease) ([facility]) PLAN: Admit to med surg cardiac monitoring [...] Medical History: Diagnosis Date Acute respiratory failure ([facility]) 09/2014 requring mechanical ventilation Anxiety Bilateral lower extremity edema R > L CAD (coronary artery disease) CAD s/p [facility] with 1 stent in left main 07/2012, replaced 09/2014 Cardiac arrest with ventricular fibrillation (HCC) 09/25/2014 CHF (congestive heart failure), NYHA class I, chronic, diastolic (HCC) Chronic sinusitis Claudication of right lower extremity (HCC) Cluster headache COPD (chronic obstructive pulmonary disease) ([facility]) 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 Bev Tolentino Metabolic syndrome Mood disorder ([facility]) Nasal fracture Obstructive sleep apnea noncompliant with CPAP Orthostatic dizziness with intermittent syncope Pericarditis 02/25/07; 09/23/17 Pneumomediastinum ([facility]) 01/12/2007 secondary to severe coughing spell & ruptured alveoli Rotator cuff tear, right 1997 s/p repair SLAP tear of shoulder 2011 left - s/p surgery to place [address] elevation myocardial infarction (STEMI) of anterolateral wall ([facility]) 05/09/2012 anterolateral STEMI involving left anterior descending coronary artery ([facility]) 09/25/2014 anterior Superficial thrombophlebitis of right upper extremity 12/26/2006 Past Surgical History: Procedure Laterality Date APPENDECTOMY 1998 BONE MARROW BIOPSY W/ ASPIRATION Left 11/27/2016 L posterior iliac crest; Dr. 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 3. No enhancing intracranial process. [employer] Workstation ID: [id number] Ct Head Or Brain [...] EDT Patient seen and managed independently by ENVIRONMENTAL SERVICES WORKER. I did not participate in the care of this patient, but was available for immediate consultation if requested by the ENVIRONMENTAL SERVICES WORKER. documented in this encounter [facility] Medicine Inpatient H&P 09/22/2019 Good Macias MD [facility] Patient: Fernando Helton Date of : 1970 (49 y.o.) PCP: Moises Patel MD Assessment Fernando Helton 49 y.o. male with history of hypertension dyslipidemia diabetes coronary artery disease status post CABG presenting with slurred speech altered mental status which has resolved at arrival to ED Principal Problem: TIA (transient ischemic attack) Active Problems: Essential hypertension Mixed hyperlipidemia Coronary artery disease involving [place] coronary artery of [place] heart without angina pectoris GERD (gastroesophageal reflux disease) PAD (peripheral artery disease) ([facility]) Plan: Admit for observation Continue on telemetry [...] Medical History: Diagnosis Date Acute respiratory failure ([facility]) 09/2014 requring mechanical ventilation Anxiety Bilateral lower extremity edema R > L CAD (coronary artery disease) CAD s/p [facility] with 1 stent in left main 07/2012, replaced 09/2014 Cardiac arrest with ventricular fibrillation ([facility]) 09/25/2014 CHF (congestive heart failure), NYHA class I, chronic, diastolic ([facility]) Chronic sinusitis Claudication of right lower extremity ([facility]) Cluster headache COPD (chronic obstructive pulmonary disease) ([facility]) 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 Bev Tolentino Metabolic syndrome Mood disorder ([facility]) Nasal fracture Obstructive sleep apnea noncompliant with CPAP Orthostatic dizziness with intermittent syncope Pericarditis 02/25/07; 09/23/17 Pneumomediastinum (HCC) 01/12/2007 secondary to severe coughing spell & ruptured alveoli Rotator cuff tear, right 1997 s/p repair SLAP tear of shoulder 2011 left - s/p surgery to place [address] elevation myocardial infarction (STEMI) of anterolateral wall ([facility]) 05/09/2012 anterolateral STEMI involving left anterior descending coronary artery ([facility]) 09/25/2014 anterior Superficial thrombophlebitis of right upper [...] Heart Cath; Surgeon: Carlo Mercedes MD; 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 SWAN LINE REMOVAL [place] catheter was removed at this time with patient lying flat. A single lumen infusion catheter was then sterilely placed right IJ cordis. Patient tolerated this very well. There were no immediate complications. documented in this encounter Care Teams (unrecognized sec tion and content) Director Trust Relationship Specialty Start Date End Date Moises Patel MD [address] [place] [address] PCP - General Family Medicine 09/20/17 Maykel Weathers II, MD [address] [place] [address] Consulting Physician Internal Medicine 05/17/15 Maximiliano Chiang MD [address] [place] [address] Consulting Physician General Surgery 07/14/19 Rubi White, ENVIRONMENTAL SERVICES WORKER [address] [facility] [address] Nurse Practitioner Nurse Practitioner 07/14/19 Devendra Freitas III, DO [address] [place] [address] Consulting Physician Vascular Surgery 07/14/19 Director Trust Relationship Specialty Start Date End Date Moises Patel MD PCP - General Family Medicine 03/17/13 Director Trust Relationship Specialty Start Date End Date Moises Patel MD [address] [place] [address] PCP - General Family Medicine 09/20/17 Maykel Weathers II, MD [address] [place] [address] Consulting Physician Internal Medicine 05/17/15 Maximiliano Chiang MD [address] [place] [address] Consulting Physician General Surgery 07/14/19 Rubi White, ENVIRONMENTAL SERVICES WORKER [address] [facility] [address] Nurse Practitioner Nurse Practitioner 07/14/19 Devendra Freitas III, DO [address] [facility] [place] [address] Consulting Physician Vascular Surgery 07/14/19 Director Trust Relationship Specialty Start Date End Date Moises Patel MD [address] [place] [address] PCP - General Family Medicine 09/20/17 Maykel Weathers II, MD [address] [place] [address] Consulting Physician Internal Medicine 05/17/15 Maximiliano Chiang MD [address] [place] [address] Consulting Physician General Surgery 07/14/19 Rubi Whtie, ENVIRONMENTAL SERVICES WORKER [address] [place] [address] Nurse Practitioner Nurse Practitioner 07/14/19 Devendra Freitas III, DO [address] [place] [address] Consulting Physician Vascular Surgery 07/14/19 Director Trust Relationship Specialty Start Date End Date Moises Patel MD PCP - General Family Medicine 03/17/13 Director Trust Relationship Specialty Start Date End Date Moises Patel MD [address] [place] [address] PCP - General Family Medicine 09/20/17 Maykel Weathers II, MD [address] [place] [address] Consulting Physician Internal Medicine 05/17/15 Maximiliano Chiang MD [address] [place] [address] Consulting Physician General Surgery 07/14/19 Rubi White, ENVIRONMENTAL SERVICES WORKER [address] [place] [address] Nurse Practitioner Nurse Practitioner 07/14/19 Devendra Freitas III, DO [address] [place] [address] Consulting Physician Vascular Surgery 07/14/19 Director Trust Relationship Specialty Start Date End Date Moises Patel MD [address] [place] [address] PCP - General Family Medicine 09/20/17 Maykel Weathers II, MD [address] [place] [address] Consulting Physician Internal Medicine 05/17/15 Maximiliano Chiang MD [address] [place] [address] Consulting Physician General Surgery 07/14/19 Rubi White CNP [address] [place] [address] Nurse Practitioner Nurse Practitioner 07/14/19 Devendra Freitas III, DO [address] [place] [address] Consulting Physician Vascular Surgery 07/14/19 Director Trust Relationship Specialty Start Date End Date Moises Patel MD [address] [place] [address] PCP - General Family Medicine 09/20/17 Maykel Weathers II, MD [address] [place] [address] Consulting Physician Internal Medicine 05/17/15 Maximiliano Chiang MD [address] [place] [address] Consulting Physician General Surgery 07/14/19 Rubi White ENVIRONMENTAL SERVICES WORKER [address] [facility] [place] [address] Nurse Practitioner Nurse Practitioner 07/14/19 Devendra Freitas III, DO [address] [facility] [place] [address] Consulting Physician Vascular Surgery 07/14/19 Director Trust Relationship Specialty Start Date End Date Moises Patel MD [address] [place] [address] PCP - General Family Medicine 09/20/17 Maykel Weathers II, MD [address] [place] [address] Consulting Physician Internal Medicine 05/17/15 Carlo Mercedes MD [address] [place] [address] Cardiology 07/14/19 07/12/20 Maximiliano Chiang MD [address] [facility] [address] [address] Consulting Physician General Surgery 07/14/19 Rubi White CNP [address] [place] [place] [address] Nurse Practitioner Nurse Practitioner 07/14/19 Devendra Freitas III, DO [address] [place] [address] Consulting Physician Vascular Surgery 07/14/19 Director Trust Relationship Specialty Start Date End Date Moises Patel MD [address] [place] [address] PCP - General Family Medicine 09/20/17 Maykel Weathers II, MD [address] [place] [address] Consulting Physician Internal Medicine 05/17/15 Carlo Mercedes MD [address] [place] [address] Cardiology 07/14/19 07/12/20 Maximiliano Chiang MD [address] [place] [address] Consulting Physician General Surgery 07/14/19 Rubi White, ENVIRONMENTAL SERVICES WORKER [address] [facility] [place] [address] Nurse Practitioner Nurse Practitioner 07/14/19 Devendra Freitas III, DO [address] [facility] [address] Consulting Physician Vascular Surgery 07/14/19 Director Trust Relationship Specialty Start Date End Date Moises Patel MD [address] [place] [address] PCP - General Family Medicine 09/20/17 Maykel Weathers II, MD [address] [place] [address] Consulting Physician Internal Medicine 05/17/15 Carlo Mercedes MD [address] [place] [address] Cardiology 07/14/19 07/12/20 Maximiliano Chiang MD [address] [place] [address] Consulting Physician General Surgery 07/14/19 Rubi White, ENVIRONMENTAL SERVICES WORKER [address] [facility] [place] [address] Nurse Practitioner Nurse Practitioner 07/14/19 Devendra Freitas III, DO [address] [place] [address] Consulting Physician Vascular Surgery 07/14/19 Director Trust Relationship Specialty Start Date End Date Moises Patel MD [address] [place] [address] PCP - General Family Medicine 12/28/14 09/19/17 Moises Patel MD [address] [place] [address] PCP - General Family Medicine 09/20/17 Maykel Weathers II, MD [address] [place] [address] Consulting Physician Internal Medicine 05/17/15 Carlo Mercedes MD [address] [place] [address] Cardiology 07/14/19 07/12/20 Maximiliano Chiang MD [address] [address] Consulting Physician General Surgery 07/14/19 Rubi White CNP [address] [place] [address] Nurse Practitioner Nurse Practitioner 07/14/19 Devendra Freitas III, DO [address] [place] [address] Consulting Physician Vascular Surgery 07/14/19 Director Trust Relationship Specialty Start Date End Date Moises Patel MD [address] [place] [address] PCP - General Family Medicine 12/28/14 09/19/17 Moises Patel MD [address] [place] [address] PCP - General Family Medicine 09/20/17 Maykel Weathers II, MD [address] [place] [address] Consulting Physician Internal Medicine 05/17/15 Carlo Mercedes MD [address] [place] [address] Cardiology 07/14/19 07/12/20 Maximiliano Chiang MD [address] [place] [address] Consulting Physician General Surgery 07/14/19 Rubi White CNP [address] [place] [address] Nurse Practitioner Nurse Practitioner 07/14/19 Devendra Freitas III, DO [address] [facility] [place] [address] Consulting Physician Vascular Surgery 07/14/19 Director Trust Relationship Specialty Start Date End Date Moises Patel MD [address] [place] [address] PCP - General Family Medicine 12/28/14 09/19/17 Moises Patel MD [address] [place] [address] PCP - General Family Medicine 09/20/17 Maykel Weathers II, MD [address] [place] [address] Consulting Physician Internal Medicine 05/17/15 Carlo Mercedes MD [address] [place] [address] Cardiology 07/14/19 07/12/20 Maximiliano Chiang MD [address] [place] [address] Consulting Physician General Surgery 07/14/19 Rubi White, JIM [address] [facility] [address] Nurse Practitioner Nurse Practitioner 07/14/19 Devendra Freitas III, DO [address] [facility] [place] [address] Consulting Physician Vascular Surgery 07/14/19 Director Trust Relationship Specialty Start Date End Date Moises Patel MD [address] [place] [address] PCP - General Family Medicine 12/28/14 09/19/17 Moises Patel MD [address] [place] [address] PCP - General Family Medicine 09/20/17 Maykel Weathers II, MD [address] [place] [address] Consulting Physician Internal Medicine 05/17/15 Carlo Mercedes MD [address] [place] [address] Cardiology 07/14/19 07/12/20 Maximiliano Chiang MD [address] [place] [address] Consulting Physician General Surgery 07/14/19 Rubi White CNP [address] [place] [address] Nurse Practitioner Nurse Practitioner 07/14/19 Devendra Freitas III, DO [address] [place] [address] Consulting Physician Vascular Surgery 07/14/19 Director Trust Relationship Specialty Start Date End Date Moises Patel MD [address] [place] [address] PCP - General Family Medicine 09/20/17 Maykel Weathers II, MD [address] [place] [address] Consulting Physician Internal Medicine 05/17/15 Maximiliano Chiang MD [address] [place] [address] Consulting Physician General Surgery 07/14/19 Rubi White CNP [address] [facility] [place] [address] Nurse Practitioner Nurse Practitioner 07/14/19 Devendra Freitas III, DO [address] [facility] [address] Consulting Physician Vascular Surgery 07/14/19 Team Status: [...] BE BASED ON THE PRIMARY CLINICAL RECORDS. [facility] [employer] [facility]. provides no warranty or guarantee of the accuracy or completeness of information in this document.
[2023-03-01] MEDS: ENOXAPARIN SODIUM 40 MG/0.4 ML SYRINGE SUBQ ×2 (07:59→09:18)
[2023-03-01] MEDS: OXYCODONE HCL 5 MG TABLET PO (07:59)
[2023-03-01] MEDS: GUAIFENESIN 600 MG TAB.ER.12H PO (07:59)
[2023-03-01] MEDS: BENZONATATE 100 MG CAPSULE 200 MG PO (08:54)
[2023-03-01] MEDS: ROPINIROLE HCL 1 MG TABLET 2 MG PO (08:54)
[2023-03-01] MEDS: AZITHROMYCIN 250 MG TABLET 500 MG PO (08:55)
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
--- NOTE | 2023-03-05 10:20 | CM.DCFOLLOWU ---
1st attempt No answer 03/05
--- NOTE | 2023-03-06 15:49 | CM.DCFOLLOWU ---
2nd attempt. No answer 03/06
--- NOTE | 2023-03-07 15:15 | CM.DCFOLLOWU ---
3rd attempt. No answer
== END 2023-03-01 12:25 | disposition home or self-care (01) ==
LOC: ER 18:40 → MS 20:13
PROVIDERS: Nurse Practitioner Acute Care; Physician Assistant; Admitting Provider Internal Medicine; Emergency Provider Emergency Medicine; Visit Provider Internal Medicine
DX: J44.1 Chronic obstructive pulmonary disease with (acute) exacerbation (principal); I25.10 Atherosclerotic heart disease of native coronary artery without angina pectoris; G25.81 Restless legs syndrome; M25.512 Pain in left shoulder; G89.29 Other chronic pain; G47.00 Insomnia, unspecified; I25.2 Old myocardial infarction; R06.02 Shortness of breath; F41.9 Anxiety disorder, unspecified; Z95.1 Presence of aortocoronary bypass graft; Z96.611 Presence of right artificial shoulder joint; Z90.49 Acquired absence of other specified parts of digestive tract; Z96.612 Presence of left artificial shoulder joint; Z79.899 Other long term (current) drug therapy; Z87.891 Personal history of nicotine dependence; Z20.822 Contact with and (suspected) exposure to COVID-19
CPT/HCPCS: 36415; 71045; 80048; 80053; 82800; 83605; 83735; 83880; 84145; 84484; 85025; 85378; 85610; 87040; 87804; 87811; 93005; 94640; 94761; 96365; 96372; 96375; 96376; 99285; G0378; J0456; J1650; J2270; J2930

== ENCOUNTER 2023-03-10 10:23 | Emergency (ER) | payer SELFPAY ==
[2023-03-10 10:31] VITALS: BP 163/101; PULSE 106; RESP 16; TEMP 36.7; O2SAT 97
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
--- NOTE | 2023-03-10 10:36 | US_ITS ---
The [address] [address] Patient Name: BRYNN WRIGHT MRN: [id number] date: 1970 Sex: M Assigned Patient Location: ER Current Patient Location: ER Accession/Order Number: [id number] Exam Date: 03/10/2023 11:35 Report Date: 03/10/2023 14:42 At the request of: ODALYS BAIRD Procedure: US arterial duplex UE LT ULTRASOUND LEFT UPPER EXTREMITY ARTERIAL DUPLEX HISTORY: Left third digit pain and poor capillary refill. COMPARISON: None available. TECHNIQUE: Duplex arterial Doppler exam of the left upper extremity. FINDINGS: There is normal appearing arterial waveforms throughout the left upper extremity to the level of the distal forearm. There is loss of the normal arterial waveform at the base of the left third digit. The waveforms appear different than the expected waveform seen at the base of the left second and fourth digits. Peak systolic velocities in centimeters per second: Base of left third digit 10.6 cm/s Base of left fourth digit 32.6 cm/s Base of left second digit 42.2 cm/s. US/US arterial duplex UE LT IMPRESSION: Decreased blood flow at the base of the left third digit in comparison to the base of the second and fourth digits. Recommend CTA a left upper extremity. Recommend emergent vascular surgery consult. CRITICAL RESULTS REPORTING: These results were called by myself and discussed with Odalys Baird at the time of the interpretation 03/10/2023 2:35 PM EST. Electronically authenticated by: TONNY NAQVI Date: 03/10/2023 14:42
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
[2023-03-10 11:07] LABS: Basophils Absolute Auto 0.1 10^3/uL (0.0-0.1); Basophils Percent Auto 0.7 % (0.2-2.0); Eosinophils Absolute Auto 1.2 10^3/uL (0.0-0.7); Eosinophils Percent Auto 8.9 % (0.9-7.0); Hematocrit 49.2 % (42.0-54.0); Hemoglobin 16.5 g/dL (14.0-18.0); Immature Granulocytes Pct Auto 1.5 % (0.0-0.5); Lymphocytes Absolute Auto 4.2 10^3/uL (1.2-3.8); Lymphocytes Percent Auto 31.1 % (20.5-60.0); Mean Corpuscular HGB Conc 33.5 g/dL (29.9-35.2); Mean Corpuscular Hemoglobin 28.8 pg (25.9-34.0); Mean Platelet Volume 10.4 fL (9.5-13.5); Monocytes Absolute Auto 1.1 10^3/uL (0.3-0.8); Monocytes Percent Auto 8.1 % (1.7-12.0); Neutrophils Absolute Auto 6.7 10^3/uL (1.4-6.5); Neutrophils Percent Auto 49.7 % (43.0-75.0); Platelet Count 315 10^3/uL (150-450); Red Blood Count 5.72 10^6/uL (4.70-6.10); Red Cell Distribution Width 14.5 % (11.0-15.0); White Blood Count 13.4 10^3/uL (4.0-11.0)
[2023-03-10 11:16] LABS: Anion Gap 12.8; BUN Creatinine Ratio 16.1; Calcium 8.9 mg/dL (8.5-10.1); Carbon Dioxide 26.2 mmol/L (21.0-32.0); Chloride 102 mmol/L (98-107); Estimated GFR (African America >60 (>=60); Estimated GFR (Non-African Ame >60 (>=60); Glucose 230 mg/dL (74-106); Sodium 137 mmol/L (136-145)
[2023-03-10 11:21] LABS: Partial Thromboplastin Time 21.4 sec (22.3-36.2); Prothrombin Time 9.6 sec (9.0-11.6)
--- OUTSIDE RECORDS SUMMARY | 2023-03-10 11:30 | XMS_ITS | CCD ---
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 mg/dL Normal 0.2-1.2 [facility] Comment on above: Performed By: #### A CBC, PT, LIVR, CHEM7F #### Testing performed at [place] [id number] Bilirubin.direct [Mass/Vol] 0.1 mg/dL Normal 0.0-0.2 [facility] Comment on above: Performed By: #### A CBC, PT, LIVR, CHEM7F #### [place] [address] Protein [Mass/Vol] 7.1 g/dL Normal 6.3-8.2 [facility] Comment on above: Performed By: #### A CBC, PT, LIVR, CHEM7F #### [place] [address] NOVEL CORONAVIRUSon 20 21 NARRATIVE This test was perfor med using isothermal MEGHANN and has been approved as Emergency Use Authorization (EUA) for the qualitative detection [id number] nucleic acid. Normal [facility] Comment on above: Performed By: #### C OVID #### [place] [address] SARS-COV-2 NOT DETECTED Normal NOT DETECTED [facility] Comment on above: Result Comment: Nega [...] #### C OVID #### [place] [address] PROTIMEon 04-25-2020 INR Coag (PPP) [Relative time] 0.97 {INR} Normal 0.88-1.12 [facility] Comment on above: Result Comment: 2.0-3.0 THERAPEUTIC RANGE 2.5-3.5 MECHANICAL VALVE RANGE Performed By: #### A CBC, PT, LIVR, CHEM7F #### Testing performed at [address] [address] PT Coag (PPP) [Time] 12.7 s Normal 11.8-14.4 [facility] Comment on above: Performed By: #### A CBC, PT, LIVR, CHEM7F #### Testing performed at [address] [address] RAPID FLU Aon 04-25-2020 INFLUENZA A Negative Normal NEGATIVE [facility] Comment on above: Performed By: #### R FLUAB #### Testing performed at [address] [address] INFLUENZA B Negative Normal NEGATIVE [facility] Comment on above: Result Comment: TEST ING PERFORMED BY MEGHANN Performed By: #### R FLUAB #### Testing performed at [address] [address] TROPONIN I, HIGH SENSITIVITY on 04-25-2020 TROPONIN I, HIGH SENSITIVITY 7 pg/mL Normal 0-20 [facility] Comment on above: Result Comment: Indeterminant: >12 to 100 pg/mL female >20 to 100 pg/mL male Indicative of myocardial injury. Serial sampling is recommended, a change of greater than or equal to 20 pg/mL is indicative of acute coronary syndrome. Performed By: #### R FLUAB #### Testing performed at [address] [address] XR CHEST AP PORTABLEon 04-25 XR CHEST AP PORTABLE EXAM: XR CHEST AP PORTABLE HISTORY: sob COMPARISON: Portable chest from 01/08/2018. TECHNIQUE: Portable chest was done at 5:41 PM. FINDINGS: Sternal wires indicate prior surgery. Trachea, mediastinum, heart size, diaphragm and bony elements are intact. No infiltrate or nodule or effusion or pneumothorax is noted. IMPRESSION: Nonacute portable chest. Normal [facility] XR CHEST PA AND LATERALon XR CHEST PA AND LATERAL EXAM: XR CHEST P A AND LATERAL 12/31/2019 2:56 PM EST HISTORY: sob COMPARISON: 01/08/2018 TECHNIQUE: PA and lateral views FINDINGS: Lungs are clear. The cardiomediastinal configuration is within normal limits. No acute bony abnormalities. Median sternotomy wires are visualized. IMPRESSION: No acute cardiopulmonary abnormalities. Normal [facility] COVID-19, MOLECULARon 2019 SARS-COV-2 RNA (KELL) Not Detected Normal Not Detected [facility] Comment on above: Result Comment: This [...] at the following links: For Healthcare Providers: https://www.fda.gov/media/123333/download For Patients: https://www.fda.gov/media/623723/download Performed By: #### L [id number] #### [facility] [address] [place] [address] Roby Santos M.D. [id number] CBC WITH AUTO DIFFERENTIALon 10-16-2019 Basophils (Bld) [#/Vol] 0.10 10*3/uL [facility] Basophils/100 WBC (Bld) 0.6 % [facility] Eosinophils (Bld) [#/Vol] 0.21 10*3/uL [facility] Eosinophils/100 WBC (Bld) 1.3 % [facility] Erythrocyte distribution width (RBC) [Entitic vol] 15.3 % High 11.6 - 14.8 % [facility] Hematocrit (Bld) [Volume fraction] 47.6 % 41 - 53 % [facility] Hemoglobin (Bld) [Mass/Vol] 15.2 g/dL 13.5 - 17.5 g/dL [facility] Immature granulocytes (Bld) [#/Vol] 0.11 10*3/uL [facility] Immature granulocytes/100 WBC (Bld) 0.70 % [facility] Comment on above: The IG parameter is the percentage of metamyelocytes, myelocytes and promyelocytes. An immature granulocyte count (IG) of 1% or more suggests the possibility of infection, an IG count of 3% is very likely related to an infection. Interpretation and review of laboratory results Abnormal [facility] Lymphocytes (Bld) [#/Vol] 5.08 10*3/uL High [facility] Lymphocytes/100 WBC (Bld) 32.5 % [facility] MCH (RBC) [Entitic mass] 27.4 pg 26 - 34 pg [facility] MCHC (RBC) [Mass/Vol] 31.9 g/dL 31 - 3 7 g/dL [facility] MCV (RBC) [Entitic vol] 85.9 fL 80 - 100 fL [facility] Monocytes (Bld) [#/Vol] 1.39 10*3/uL High [facility] Monocytes/100 WBC (Bld) 8.9 % [facility] Neutrophils (Bld) [#/Vol] 8.72 10*3/uL High [facility] Neutrophils/100 WBC (Bld) 56.0 % [facility] Comment on above: Peripheral smear rev iewed manually Nucleated RBC (Bld) [#/Vol] 0.00 10*3/uL [facility] Nucleated RBC/100 WBC (Bld) [Ratio] 0.0 % [facility] Platelet mean volume (Bld) [Entitic vol] 10.3 fL 9.4 - 12.4 fL [facility] Platelets (Bld) [#/Vol] 306 10*3/uL [facility] RBC (Bld) [#/Vol] 5.54 10*6/uL [facility]alth WBC (Bld) [#/Vol] 15.61 10*3/uL [facility] Comprehensive Metabolic Pane sangeetha 10-16-2019 Albumin [Mass/Vol] 3.2 g/dL 3.2 - 5.2 g/dL [facility] ALP [Catalytic activity/Vol] 87 U/L 40 - 150 U/L [facility] ALT [Catalytic activity/Vol] 46 U/L 14 - 65 U/L [facility] Anion gap [Moles/Vol] 10 mmol/L 10 - 2 0 mmol/L [facility] AST [Catalytic activity/Vol] 16 U/L 0 - 45 U/L [facility] Bilirubin [Mass/Vol] 0.4 mg/dL 0 - 1.3 mg/dL [facility] Calcium [Mass/Vol] 8.7 mg/dL 8.4 - 10. 2 mg/dL [facility] Chloride [Moles/Vol] 108 mmol/L 98 - 10 8 mmol/L [facility] Creatinine [Mass/Vol] 1.09 mg/dL 0.50 - 1.30 [facility] GFR/1.73 sq M predicted among non-blacks MDRD (S/P/Bld) [Vol rate/Area] The eGFR should be used for monitoring renal function only and not for medication dosing. [facility] GFR/1.73 sq M.predicted CKD-EPI (S/P/Bld) [Vol rate/Area] 80 >=60 mL/min/1.7 3 m2 [facility] Glucose [Mass/Vol] 117 mg/dL High 65 - 99 mg/dL [facility] HCO3 [Moles/Vol] 26 mmol/L 21 - 32 mmol/L [facility] Interpretation and review of laboratory results Abnormal [facility] Potassium [Moles/Vol] 3.7 mmol/L 3.5 - 5.1 mmol/L [facility] Protein [Mass/Vol] 6.5 g/dL 6 - 8 g/dL [facility] Sodium [Moles/Vol] 140 mmol/L 135 - 145 mmol/L [facility] Urea nitrogen [Mass/Vol] 28 mg/dL High 8 - 25 mg/dL [facility] Urea nitrogen/Creatinine [Mass ratio] 25.7 mg/mg High [facility] ECG 12-LEADon 10-16-2019 Atrial Rate 76 BPM [facility] P [place] 74 degrees [facility] P-R Interval 174 ms [facility] Q-T Interval 424 ms [facility] QRS Duration 90 ms [facility] QTC Calculation (Bezet) 477 ms O [facility] R [place] 11 degrees [facility] T [place] 62 degrees [facility] Ventricular Rate 76 BPM [facility] Normal sinus rhythm Anteroseptal infarct , age undetermined Abnormal ECG Confirmed by DEMETRIO WARREN, EMMA ([id number]) on 10/16/2019 8:22:19 AM [facility] ECHOCARDIOGRAM 2D COMPLETEon 10-16-2019 Aortic valve area 3.74992 cm [facility] AV mean gradient 2.22882 mmHg [facility] th AV peak gradient 3.6017 mmHg [facility] EF 38.6259 % [facility] Interface, Rad In [facility] Xper Echopacs - 10/16/2019 11:49 AM EDT Patient Info Name: FERNANDO HELTON Age: 49 years : 1970 Gender: Male Ht: 168 cm Wt: 118 kg BSA: 2.40 m2 HR: 72 bpm BP: 136 / 94 mmHg Heart Rhythm: Sinus Rhythm Technical Quality: Fair Exam Date: 10/16/2019 9:53 AM Patient Status: Outpatient Test Preparation Tutor: Wally Longoria RCDS Exam Type: ECHOCARDIOGRAM COMPLETE W CONTRAST Study Info Indications - - Syncope Referring Physician: ERLINDA Clarke; [id number] BMI: 41.96 kg/m2 Summary 1. Left ventricular [...] mmHg MV VTI 27.22 cm MV Decel [place] 300.69 cm/s2 MV PHT 71 ms MV [...] ml/m2 16.00-34.00 RA Dimensions RA Systolic Major [place] Length (4C) 5.70 cm <=5.30 RA Area (4C) 15.87 cm2 <=18.00 RA Area (4C) Index 6.60 cm2/m2 RA ESV (4C MOD) 38.16 ml 18.00-32.00 RA ESV Index (4C MOD) 15.87 ml/m2 <=32.00 Report Signatures Finalized by Emma Bueno MD on 10/16/2019 11:48 AM [facility] Patient Info Name: Andrew HELTON Age: 49 years : 1970 Gender: Male Ht: 168 cm Wt: 118 kg BSA: 2.40 m2 HR: 72 bpm BP: 136 / 94 mmHg Heart Rhythm: Sinus Rhythm Technical Quality: Fair Exam Date: 10/16/2019 9:53 AM Patient Status: Outpatient Test Preparation Tutor: Wally Longoria RCDS Exam Type: ECHOCARDIOGRAM COMPLETE W CONTRAST Study Info Indications - - Syncope Referring Physician: ERLINDA Clarke; [id number] BMI: 41.96 kg/m2 Summary 1. Left ventricular [...] mmHg MV VTI 27.22 cm MV [place]el [place] 300.69 cm/s2 MV PHT 71 ms MV [...] ml/m2 16.00-34.00 RA Dimensions RA Systolic [place] Length (4C) 5.70 cm <=5.30 RA Area (4C) 15.87 cm2 <=18.00 RA Area (4C) Index 6.60 cm2/m2 RA ESV (4C MOD) 38.16 ml 18.00-32.00 RA ESV Index (4C MOD) 15.87 ml/m2 <=32.00 Report Signatures Finalized by Emma Bueno MD on 10/16/2019 11:48 AM [facility] EKGon 10-16-2019 Ordered by an unspec ified provider. [facility] MORPHOLOGYon 10-16-2019 RBC morphology finding Nom (Bld) Normal [facility] Comment on above: RBC Indices confirme d with manual peripheral smear review. Magnesiumon 10-16-2019 Interpretation and review of laboratory results Normal [facility] Magnesium [Mass/Vol] 2.1 mg/dL 1.6 - 2 .4 mg/dL [facility] POC Glucoseon 10-16-2019 Glucose [Mass/Vol] 118 mg/dL High 65 - 99 mg/dL [facility] Interpretation and review of laboratory results Abnormal [facility] TROPONINon 10-16-2019 Troponin I.cardiac [Mass/Vol] ng/mL <=45 ng/L [facility] Troponin I.cardiac [Mass/Vol] Normal [facility] URINALYSISon 10-16-2019 Bacteria Auto Ql (U) None Seen None Se en /hpf [facility] Bilirubin Ql (U) Negative Negative [facility] th Clarity Refractometry automated (U) Clear Clear [facility] Color (U) Yellow Colorless, Yellow [facility] Epithelial cells.squamous Auto (Urine sed) [#/Area] <1 [facility] Glucose Auto test strip (U) [Mass/Vol] 50 Abnormal Negative mg/dL [facility] Hemoglobin Auto test strip Ql (U) Negative Negative [facility] Interpretation and review of laboratory results Abnormal [facility] Ketones (U) [Mass/Vol] Negative Negat bryan mg/dL [facility] Leukocyte esterase Auto test strip Ql (U) Negative Negative [facility] Nitrite Auto test strip Ql (U) Negative Negative [facility] pH (U) 5.5 [pH] [facility] Protein (U) [Mass/Vol] Negative Negat bryan mg/dL [facility] RBC Auto (Urine sed) [#/Area] [facility] Specific gravity (U) [Rel density] 1.033 High [facility] Urobilinogen (U) [Mass/Vol] <2.0 <2.0 mg/dL [facility] WBC Auto (Urine sed) [#/Area] <1 [facility] Microscopic examinat ion is performed on all urinalysis samples and only positive findings are reported. The test for blood on the chemical analytic portion of urinalysis may also be positive due to hemoglobinuria and myoglobinuria and if red blood cells are present they are quantified by microscopic examination. [facility] Alcohol, Medicalon 0 Ethanol [Mass/Vol] mg/dL <10.00 mg/dL [facility] Comment on above: Alcohol cutoff: <10. 00 mg/dL = None Detected Interpretation and review of laboratory results Normal [facility] BMPon 10-15-2019 Anion gap [Moles/Vol] 10 mmol/L 10 - 2 0 mmol/L [facility] Calcium [Mass/Vol] 9.0 mg/dL 8.4 - 10. 2 mg/dL [facility] Chloride [Moles/Vol] 108 mmol/L 98 - 10 8 mmol/L [facility] Creatinine [Mass/Vol] 1.41 mg/dL High 0.50 - 1.30 [facility] GFR/1.73 sq M predicted among non-blacks MDRD (S/P/Bld) [Vol rate/Area] The eGFR should be used for monitoring renal function only and not for medication dosing. [facility] GFR/1.73 sq M.predicted CKD-EPI (S/P/Bld) [Vol rate/Area] 58 Low >=60 mL/min/1.7 3 m2 [facility] Glucose [Mass/Vol] 203 mg/dL High 65 - 99 mg/dL [facility] HCO3 [Moles/Vol] 23 mmol/L 21 - 32 mmol/L [facility] Interpretation and review of laboratory results Abnormal [facility] Potassium [Moles/Vol] 4.2 mmol/L 3.5 - 5.1 mmol/L [facility] Sodium [Moles/Vol] 137 mmol/L 135 - 145 mmol/L [facility] Urea nitrogen [Mass/Vol] 27 mg/dL High 8 - 25 mg/dL [facility] Urea nitrogen/Creatinine [Mass ratio] 19.1 mg/mg [facility] CBC WITH AUTO DIFFERENTIALon 10-15-2019 Basophils (Bld) [#/Vol] 0.05 10*3/uL [facility] Basophils/100 WBC (Bld) 0.3 % [facility] Eosinophils (Bld) [#/Vol] 0.01 10*3/uL [facility] Eosinophils/100 WBC (Bld) 0.1 % [facility] Erythrocyte distribution width (RBC) [Entitic vol] 15.3 % High 11.6 - 14.8 % [facility] Hematocrit (Bld) [Volume fraction] 45.2 % 41 - 53 % [facility] Hemoglobin (Bld) [Mass/Vol] 14.6 g/dL 13.5 - 17.5 g/dL [facility] Immature granulocytes (Bld) [#/Vol] 0.15 10*3/uL [facility] Immature granulocytes/100 WBC (Bld) 0.90 % [facility] Comment on above: The IG parameter is the percentage of metamyelocytes, myelocytes and promyelocytes. An immature granulocyte count (IG) of 1% or more suggests the possibility of infection, an IG count of 3% is very likely related to an infection. Lymphocytes (Bld) [#/Vol] 3.35 10*3/uL [facility] Lymphocytes/100 WBC (Bld) 19.9 % [facility] MCH (RBC) [Entitic mass] 27.2 pg 26 - 34 pg [facility] MCHC (RBC) [Mass/Vol] 32.3 g/dL 31 - 3 7 g/dL [facility] MCV (RBC) [Entitic vol] 84.2 fL 80 - 100 fL [facility] Monocytes (Bld) [#/Vol] 1.39 10*3/uL High [facility] Monocytes/100 WBC (Bld) 8.2 % [facility] Neutrophils (Bld) [#/Vol] 11.91 10*3/uL High [facility] Neutrophils/100 WBC (Bld) 70.6 % [facility] Nucleated RBC (Bld) [#/Vol] 0.00 10*3/uL [facility] Nucleated RBC/100 WBC (Bld) [Ratio] 0.0 % [facility] Platelet mean volume (Bld) [Entitic vol] 10.5 fL 9.4 - 12.4 fL [facility] Platelets (Bld) [#/Vol] 329 10*3/uL [facility] RBC (Bld) [#/Vol] 5.37 10*6/uL [facility] WBC (Bld) [#/Vol] 16.86 10*3/uL [facility] COVID-19, Molecularon 2019 Interpretation and review of laboratory results Normal [facility] [facility] SARS-CoV-2 Not Detected Not Detected [facility] Comment on above: This test was [...] at the following links: For Healthcare Providers: https://www.[place] [place].gov/media/296088/download For Patients: https://www.[place] [place].gov/Kiddy/075550/download CT HEAD OR BRAIN WITHOUT CON TRASTon [...] of acute intracranial abnormality. Workstation ID: [id number] [facility] EXAMINATION: CT HEAD OR BRAIN WITHOUT [...] TISSUES: Unremarkable. BONES: No acute osseous abnormality. [facility] No CT evidence of ac soni intracranial abnormality. Workstation ID: [id number] [facility] ECG 12-LEADon 10-15-2019 Atrial Rate 85 BPM [facility] P [place] 61 degrees [facility] P-R Interval 170 ms [facility] Q-T Interval 388 ms [facility] QRS Duration 90 ms [facility] QTC Calculation (Bezet) 461 ms [facility] R [place] -4 degrees [facility] T [place] 80 degrees [facility] Ventricular Rate 85 BPM [facility] th Normal sinus rhythm Low voltage QRS Inferior infarct , age undetermined Cannot rule out Anteroseptal infarct , age undetermined Abnormal ECG ECG Cart Interpretation see physician note for interpretation. Confirmed by Brandy Kc ([id number]) on 10/15/2019 10:58:08 PM [facility] Hepatic Function Panel (LFT) on 10-15-2019 Albumin [Mass/Vol] 3.5 g/dL 3.2 - 5.2 g/dL [facility] ALP [Catalytic activity/Vol] 106 U/L 40 - 150 U/L [facility] ALT [Catalytic activity/Vol] 52 U/L 14 - 65 U/L [facility] AST [Catalytic activity/Vol] 21 U/L 0 - 45 U/L [facility] Bilirubin [Mass/Vol] 0.4 mg/dL 0 - 1.3 mg/dL [facility] Bilirubin.conjugated [Mass/Vol] 0.1 mg/dL 0 - 0.4 mg/dL [facility] Protein [Mass/Vol] 7.1 g/dL 6 - 8 g/dL [facility] NT Pro BNPon 10-15-2019 Natriuretic peptide.B prohormone N-Terminal [Mass/Vol] 137 pg/mL 0 - 300 pg/mL [facility] Pride Study Cut-offs Rule In: < /= 50 Years >450 pg/mL 51 Years - 75 Years >900 pg/mL 76 Years - 99 Years >1800 pg/mL Rule Out: All patients <300 pg/mL [facility] Otheron 10-15-2019 Interpretation and review of laboratory results Normal [facility] Interpretation and review of laboratory results Abnormal [facility] POC Glucoseon 10-15-2019 Glucose [Mass/Vol] 189 mg/dL Abnormal 65 - 99 mg/dL [facility] Interpretation and review of laboratory results Abnormal [facility] Glucose [Mass/Vol] 189 mg/dL High 65 - 99 mg/dL [facility] PT/INRon 10-15-2019 INR Coag (PPP) [Relative time] 1.0 {INR} [facility] Interpretation and review of laboratory results Normal [facility] PT Coag (PPP) [Time] 12.7 s [facility] During the induction phase of oral anticoagulation, the INR may not reflect the anticoagulation status of the patient. Therapeutic ranges for INR's are: Most clinical situations: INR 2.0-3.0 Mechanical Prosthetic Valve: INR 2.5-3.5 Critical: INR >5.0 [facility] TROPONINon 10-15-2019 Troponin I.cardiac [Mass/Vol] Normal [facility] Troponin I.cardiac [Mass/Vol] ng/mL <=45 ng/L [facility] XR Chest 1 Viewon 10-15-2019 No acute cardiopulmo nary disease. Workstation ID: [id number] [facility] Interface, Rad In Luis Fernando ji Speechq - 10/15/2019 10:31 PM EDT EXAMINATION: XR CHEST PA/AP, 10/15/2019 HISTORY: diaphoresis COMPARISON: Chest, 09/22/2019. FINDINGS: Sternotomy wires are unchanged. Cardiac size, mediastinal contour and pulmonary vascularity appear within normal limits. The lungs are well expanded and appear clear. IMPRESSION: No acute cardiopulmonary disease. Workstation ID: [id number] [facility] EXAMINATION: XR CHES T PA/AP, 10/15/2019 HISTORY: diaphoresis COMPARISON: Chest, 09/22/2019. FINDINGS: Sternotomy wires are unchanged. Cardiac size, mediastinal contour and pulmonary vascularity appear within normal limits. The lungs are well expanded and appear clear. [facility] EKGon 09-23-2019 Ordered by an unspec ified provider. [facility] Lipid Panelon 09-23-2019 Cholesterol [Mass/Vol] 155 mg/dL 100 - 199 mg/dL [facility] Comment on above: National Cholesterol Education Program Guidelines: Cholesterol Desirable: <200 mg/dL Borderline High: 200-239 mg/dL High: greater than or equal to 240 mg/dL Cholesterol in HDL [Mass/Vol] 38 mg/dL Low 40 - 59 [facility] Comment on above: National Cholesterol Education Program Guidelines: HDL Cholesterol Low: <40 mg/dL Near Optimal: 40-59 mg/dL High: greater than or equal to 60 mg/dL Cholesterol in LDL [Mass/Vol] 79 mg/dL 10 - 130 mg/dL [facility] Comment on above: National Cholesterol Education Program Guidelines: LDL Cholesterol Optimal: <100 mg/dL Near Optimal/above Optimal: 100-129 mg/dL Borderline High: 130-159 mg/dL High: 160-189 mg/dL Very High: greater than or equal to 190 mg/dL Cholesterol non HDL [Mass/Vol] 117 mg/dL [facility] Comment on above: National Cholesterol Education Program Guidelines: NON HDL Cholesterol Desirable: <130 mg/dL Borderline High: 130-159 mg/dL High: 160-189 mg/dL Very High: > or = 190 mg/dL Cholesterol.total/Choles terol in HDL [Mass ratio] 4.1 {ratio} ratio [facility] Comment on above: Males Cholesterol/HD L Ratio: Average risk: 5.0 1/2 average risk: 3.4 2 x average risk: 9.6 Interpretation and review of laboratory results Abnormal [facility] Triglyceride [Mass/Vol] 192 mg/dL High 30 - 150 mg/dL [facility] Comment on above: National Cholesterol Education Program Guidelines: Triglyceride Normal: <150 mg/dL Borderline High: 150-199 mg/dL High: 200-499 mg/dL Very High: greater than or equal to 500 mg/dL MR Brain With And Without Co ntraston 09-23-2019 No acute intracrania l abnormality and no abnormal enhancement within the limitation of the study. Workstation ID: [id number] [facility] Interface, Rad In Luis Fernando Garciaq [...] limitation of the study. Workstation ID: [id number] [facility] EXAMINATION: MR XIOMARA Kincaid WITH AND [...] No tonsillar ectopia or mass is present.. [facility] POC Glucoseon 09-23-2019 Glucose [Mass/Vol] 102 mg/dL High 65 - 99 mg/dL [facility] Interpretation and review of laboratory results Abnormal [facility] Glucose [Mass/Vol] 110 mg/dL High 65 - 99 mg/dL [facility] Interpretation and review of laboratory results Abnormal [facility] Glucose [Mass/Vol] 123 mg/dL High 65 - 99 mg/dL [facility] Interpretation and review of laboratory results Abnormal [facility] Glucose [Mass/Vol] 113 mg/dL High 65 - 99 mg/dL [facility] Interpretation and review of laboratory results Abnormal [facility] CBC WITH AUTO DIFFERENTIALon 09-22-2019 Basophils (Bld) [#/Vol] 0.10 10*3/uL [facility] Basophils/100 WBC (Bld) 1.0 % [facility] Eosinophils (Bld) [#/Vol] 0.68 10*3/uL High [facility] Eosinophils/100 WBC (Bld) 6.8 % [facility] Erythrocyte distribution width (RBC) [Entitic vol] 15.9 % High 11.6 - 14.8 % [facility] Hematocrit (Bld) [Volume fraction] 44.9 % 41 - 53 % [facility] Hemoglobin (Bld) [Mass/Vol] 14.0 g/dL 13.5 - 17.5 g/dL [facility] Immature granulocytes (Bld) [#/Vol] 0.07 10*3/uL [facility] Immature granulocytes/100 WBC (Bld) 0.70 % [facility] Comment on above: The IG parameter is the percentage of metamyelocytes, myelocytes and promyelocytes. An immature granulocyte count (IG) of 1% or more suggests the possibility of infection, an IG count of 3% is very likely related to an infection. Interpretation and review of laboratory results Abnormal [facility] Lymphocytes (Bld) [#/Vol] 2.50 10*3/uL [facility] Lymphocytes/100 WBC (Bld) 25.2 % [facility] MCH (RBC) [Entitic mass] 26.6 pg 26 - 34 pg [facility] MCHC (RBC) [Mass/Vol] 31.2 g/dL 31 - 3 7 g/dL [facility] MCV (RBC) [Entitic vol] 85.2 fL 80 - 100 fL [facility] Monocytes (Bld) [#/Vol] 0.86 10*3/uL [facility] Monocytes/100 WBC (Bld) 8.7 % [facility] Neutrophils (Bld) [#/Vol] 5.72 10*3/uL [facility] Neutrophils/100 WBC (Bld) 57.6 % [facility] Nucleated RBC (Bld) [#/Vol] 0.00 10*3/uL [facility] Nucleated RBC/100 WBC (Bld) [Ratio] 0.0 % [facility] Platelet mean volume (Bld) [Entitic vol] 10.1 fL 9.4 - 12.4 fL [facility] Platelets (Bld) [#/Vol] 265 10*3/uL [facility] RBC (Bld) [#/Vol] 5.27 10*6/uL [facility] eah WBC (Bld) [#/Vol] 9.93 10*3/uL [facility], Molecularon 2019 Interpretation and review of laboratory results Normal [facility] SARS-CoV-2 Not Detected Not Detected [facility] Comment on above: This test was [...] at the following links: For Healthcare Providers: https://www.[place] [place].gov/media/210176/download For Patients: https://www.[place] [place].gov/Kiddy/751002/download CT ANGIOGRAM HEAD NECKon EXAMINATION: CT EDNA [...] patient motion. There is no airway compromise. [facility], Rad In Fu ji Speechq - 09/22/2019 11:27 AM EDT EXAMINATION: CT ANGIOGRAM HEAD NECK HISTORY: ORDERING SYSTEM PROVIDED HISTORY: Ataxia, stroke suspected, TECHNOLOGIST PROVIDED HISTORY: Illness/Other Reason for exam: Ataxia, stroke suspected Encounter Type: Initial Additional signs and symptoms: Ataxia, stroke suspected ORDERING SYSTEM PROVIDED DIAGNOSIS CODES: I63.9 Acute CVA (cerebrovascular accident) ([facility]) COMPARISON: CT brain 09/22/2019. TECHNIQUE: Initial noncontrast [...] intracranial CTA. 3. No enhancing intracranial process. [employer] Workstation ID: [id number] [facility] 1. No extracranial carotid or vertebral artery stenosis. 2. Unremarkable intracranial CTA. 3. No enhancing intracranial process. [employer] Workstation ID: [id number] [facility] CT HEAD WITHOUT CONTRAST (ST ROKE)on 09-22-2019 Interface, Rad In LuisF ernando yi Speechq - 09/22/2019 8:09 AM EDT [...] performed for further evaluation. Workstation ID: [id number] [facility] 1. No acute intracra nial hemorrhage or large vessel ischemia by noncontrast CT. 2. Chronic paranasal sinus disease. If patient has a focal neurologic deficit or there is clinical suspicion for acute cerebrovascular accident, brain MRI may be performed for further evaluation. Workstation ID: [id number] [facility] EXAMINATION: CT HEAD WITHOUT CONTRAST (STROKE) [...] acute large vessel ischemia by noncontrast CT. [facility] Chem 7on 09-22-2019 Anion gap [Moles/Vol] 11 mmol/L 10 - 2 0 mmol/L [facility] Chloride [Moles/Vol] 108 mmol/L 98 - 10 8 mmol/L [facility] Creatinine [Mass/Vol] 1.16 mg/dL 0.50 - 1.30 [facility] GFR/1.73 sq M predicted among non-blacks MDRD (S/P/Bld) [Vol rate/Area] The eGFR should be used for monitoring renal function only and not for medication dosing. [facility] GFR/1.73 sq M.predicted CKD-EPI (S/P/Bld) [Vol rate/Area] 74 >=60 mL/min/1.7 3 m2 [facility] Glucose [Mass/Vol] 129 mg/dL High 65 - 99 mg/dL [facility] HCO3 [Moles/Vol] 25 mmol/L 21 - 32 mmol/L [facility] Interpretation and review of laboratory results Abnormal [facility] Potassium [Moles/Vol] 4.3 mmol/L 3.5 - 5.1 mmol/L [facility] Sodium [Moles/Vol] 140 mmol/L 135 - 145 mmol/L [facility] Urea nitrogen [Mass/Vol] 24 mg/dL 8 - 25 mg/dL [facility] Urea nitrogen/Creatinine [Mass ratio] 20.7 mg/mg High [facility] ECG 12-LEADon 09-22-2019 Atrial Rate 67 BPM [facility] P [place] 63 degrees [facility] P-R Interval 172 ms [facility] Q-T Interval 404 ms [facility] QRS Duration 86 ms [facility] QTC Calculation (Bezet) 426 ms [facility] R [place] 11 degrees [facility] T [place] 79 degrees [facility] Ventricular Rate 67 BPM [facility] Normal sinus rhythm Low voltage QRS Possible Anterolateral infarct , age undetermined Abnormal ECG ECG Cart Interpretation see physician note for interpretation. Confirmed by Brandy Kc ([id number]) on 09/22/2019 3:33:43 PM [facility] Hemoglobin A1con 09-22-2019 Average glucose Estimated from glycated hemoglobin mass conc (Bld) 137 mg/dL High 68 - 114 mg/dL [facility] HbA1c (Bld) [Mass fraction] 6.4 % High 4 - 5.6 % [facility] Interpretation and review of laboratory results Abnormal [facility] Normal: 4.0% - 5.6% Increased risk for diabetes: 5.7% - 6.4% Diabetes: >= 6.5% Pediatrics: No established reference range Estimated average glucose: 68-114 mg/dL [facility] Metabolic Panelon 09-22-2019 Glucose [Mass/Vol] 126 mg/dL High 65 - 99 mg/dL [facility] Otheron 09-22-2019 Extra Tube Hold for add-ons. [facility] Comment on above: Auto resulted. Interpretation and review of laboratory results Abnormal [facility] POC Glucoseon 09-22-2019 Glucose [Mass/Vol] 121 mg/dL High 65 - 99 mg/dL [facility] Interpretation and review of laboratory results Abnormal [facility] Glucose [Mass/Vol] 164 mg/dL High 65 - 99 mg/dL [facility] Interpretation and review of laboratory results Abnormal [facility] Glucose [Mass/Vol] 105 mg/dL High 65 - 99 mg/dL [facility] Interpretation and review of laboratory results Abnormal [facility] TROPONINon 09-22-2019 Troponin I.cardiac [Mass/Vol] ng/mL <=45 ng/L [facility] Troponin I.cardiac [Mass/Vol] Normal [facility] XR Chest 1 Viewon 09-22-2019 1. Prior median sternotomy with mild cardiomegaly. 2. No acute cardiopulmonary process otherwise suspected. SKS/eva Workstation ID: [id number] [facility] Interface, Rad In Fu ji Speechq [...] process otherwise suspected. SKS/eva Workstation ID: [id number] [facility] EXAMINATION: XR CHES T PA/AP 09/22/2019 [...] No acute osseous abnormality is otherwise identified. [facility] MONITORED CARDIAC REHAB SESS IONon 03-17-2019 ANGINA N [facility] ENDING HR 103 [facility] EXT - ADMIT TO CR DATE 01/31/2019 [facility] Max HR 118 [facility] Max Mets 4.4 [facility] MODE Treadmill [facility] RESTING HR 96 [facility] SESSION DATE 03/17/2019 [facility] SESSION [facility] SESSION LENGTH 0:45:52 [facility] SESSION LIST Session List: 03/10/2019N 03/12/[id number]/13/[id number] Scheduled:4 Attended:1 Compliance:25% [facility] SESSION NUMBER 1 [facility] SESSION THR [id number] [facility] STATUS Cardiac Phase II [facility] Stress test only, exerciseon 03-13-2019 Angina Index 0 [facility] Baseline BP 124/68 mmHg [facility] Baseline HR 81 bpm [facility] Sutherland Treadmill Score 6.00 [facility] Estimated workload 7.0 METS [facility] alth Exercise duration (min) 6 min [facility] Exercise duration (sec) 0 sec [facility] Percent of predicted max HR 65 % [facility] Post peak BP 148/70 mmHg [facility] Post peak HR [address] [facility] [address] Elevation (mm) 0 mm [facility] Target HR 147 bpm [facility] Stress test results reviewed. Agree with below findings. [place] treadmill score not applicable. [facility] XR CHEST AP/PA AND LATon EXAMINATION: [...] pneumothorax. There is no acute osseous abnormality. [facility] Bibasilar atelectasi s with mild bronchial thickening. Central vascular prominence without edema. No consolidation, effusion, or pneumothorax. [facility]/ Workstation ID: [id number] [facility], Rad In ji Speech - 02/26/2019 2:44 [...] effusion, or pneumothorax. ASC/hb Workstation ID: [id number] [facility] Basic Metabolic Panelon 02-12 Anion gap [Moles/Vol] 9 mmol/L Low 10 - 2 0 mmol/L [facility] Calcium [Mass/Vol] 8.6 mg/dL 8.4 - 10. 2 mg/dL [facility] Chloride [Moles/Vol] 105 mmol/L 98 - 10 8 mmol/L [facility] Creatinine [Mass/Vol] 1.10 mg/dL 0.5 - 1.3 mg/dL [facility] GFR/1.73 sq M predicted among non-blacks MDRD (S/P/Bld) [Vol rate/Area] The eGFR should be used for monitoring renal function only and not for medication dosing. [facility] GFR/1.73 sq M.predicted CKD-EPI (S/P/Bld) [Vol rate/Area] 80 >=60 mL/min/1.7 3 m2 [facility] Glucose [Mass/Vol] 104 mg/dL High 65 - 99 mg/dL [facility] HCO3 [Moles/Vol] 28 mmol/L 21 - 32 mmol/L [facility] Interpretation and review of laboratory results Abnormal [facility] Potassium [Moles/Vol] 3.7 mmol/L 3.5 - 5.1 mmol/L [facility] Sodium [Moles/Vol] 138 mmol/L 135 - 145 mmol/L [facility] Urea nitrogen [Mass/Vol] 20 mg/dL 8 - 25 mg/dL [facility] Urea nitrogen/Creatinine [Mass ratio] 18.2 mg/mg [facility] CBC WITH AUTO DIFFERENTIALon 02-25-2019 Basophils (Bld) [#/Vol] 0.14 10*3/uL [facility] Basophils/100 WBC (Bld) 0.9 % [facility] Eosinophils (Bld) [#/Vol] 2.35 10*3/uL High [facility] Eosinophils/100 WBC (Bld) 15.2 % [facility] Erythrocyte distribution width (RBC) [Entitic vol] 14.8 % 11.6 - 14.8 % [facility] Hematocrit (Bld) [Volume fraction] 39.9 % Low 41 - 53 % [facility] Hemoglobin (Bld) [Mass/Vol] 13.0 g/dL Low 13.5 - 17.5 g/dL [facility] Immature granulocytes (Bld) [#/Vol] 0.14 10*3/uL [facility] Immature granulocytes/100 WBC (Bld) 0.90 % [facility] Comment on above: The IG parameter is the percentage of metamyelocytes, myelocytes, and promyelocytes. Interpretation and review of laboratory results Abnormal [facility] Lymphocytes (Bld) [#/Vol] 3.46 10*3/uL [facility] Lymphocytes/100 WBC (Bld) 22.4 % [facility] MCH (RBC) [Entitic mass] 26.5 pg 26 - 34 pg [facility] MCHC (RBC) [Mass/Vol] 32.6 g/dL 31 - 3 7 g/dL [facility] MCV (RBC) [Entitic vol] 81.4 fL 80 - 100 fL [facility] Monocytes (Bld) [#/Vol] 1.39 10*3/uL [facility] Monocytes/100 WBC (Bld) 9.0 % [facility] Neutrophils (Bld) [#/Vol] 7.99 10*3/uL [facility] Neutrophils/100 WBC (Bld) 51.6 % [facility] Nucleated RBC (Bld) [#/Vol] 0.00 10*3/uL [facility] Nucleated RBC/100 WBC (Bld) [Ratio] 0.0 % [facility] Platelet mean volume (Bld) [Entitic vol] 9.3 fL 9 - 15.5 fL [facility] Platelets (Bld) [#/Vol] 406 10*3/uL [facility] RBC (Bld) [#/Vol] 4.90 10*6/uL [facility]alth WBC (Bld) [#/Vol] 15.47 10*3/uL [facility] CT PULMONARY ARTERIESon 02-12 CT ANGIOGRAPHY CHEST WITH INTRAVENOUS CONTRAST ([id number]) CLINICAL HISTORY: ORDERING SYSTEM PROVIDED Dyspnea. S/P [...] FINDINGS: Postsurgical changes in the anterior midline. [facility] Interface, Rad In Fu ji Speechq - 02/25/2019 10:[address] ANGIOGRAPHY CHEST WITH INTRAVENOUS CONTRAST ([id number]) CLINICAL HISTORY: ORDERING SYSTEM PROVIDED Dyspnea. S/P [...] LEFT lung base; however. Workstation ID: [id number] [facility] - NO evidence of pulmonary embolus [...] LEFT lung base; however. Workstation ID: [id number] [facility] ECG 12-LEADon 02-25-2019 Atrial Rate 83 BPM [facility] P [place] 55 degrees [facility] P-R Interval 164 ms [facility] Q-T Interval 360 ms [facility] QRS Duration 88 ms [facility] QTC Calculation (Bezet) 423 ms [facility] R [place] 24 degrees [facility] T [place] 98 degrees [facility] Ventricular Rate 83 BPM [facility] Normal sinus rhythm Possible Left atrial enlargement Anteroseptal infarct , age undetermined T wave abnormality, consider lateral ischemia Abnormal ECG ECG Cart Interpretation see physician note for interpretation. Confirmed by Brandy Kc ([id number]) on 02/25/2019 10:46:50 PM [facility] NT Pro BNPon 02-25-2019 Interpretation and review of laboratory results Normal [facility] Natriuretic peptide.B prohormone N-Terminal [Mass/Vol] 227 pg/mL 0 - 300 pg/mL [facility] Pride Study Cut-offs Rule In: < /= 50 Years >450 pg/mL 51 Years - 75 Years >900 pg/mL 76 Years - 99 Years >1800 pg/mL Rule Out: All patients <300 pg/mL [facility] Otheron 02-25-2019 Extra Tube Hold for add-ons. [facility] Comment on above: Auto resulted. PT/INR (if on Coumadin)on INR Coag (PPP) [Relative time] 1.0 {INR} [facility] Interpretation and review of laboratory results Normal [facility] PT Coag (PPP) [Time] 12.5 s [facility] During the induction phase of oral anticoagulation, the INR may not reflect the anticoagulation status of the patient. Therapeutic ranges for INR's are: Most clinical situations: INR 2.0-3.0 Mechanical Prosthetic Valve: INR 2.5-3.5 Critical: INR >5.0 [facility] TROPONINon 02-25-2019 Troponin I.cardiac [Mass/Vol] Normal [facility] Troponin I.cardiac [Mass/Vol] ng/mL <=45 ng/L [facility] XR CHEST AP/PA AND LATon Mild improved aerati on of the left lung base, compared to 02/13/2019. Small residual left basilar pleural effusion. Recent CABG with stable mediastinal contours. ST/[facility] Workstation ID: [id number] [facility] EXAMINATION: XR CHES T AP/PA AND [...] sternotomy and CABG. Mediastinal contours are stable. [facility] Interface, Rad In Fu ji Speechq [...] stable mediastinal contours. ST/trn Workstation ID: [id number] [facility] XR CHEST AP/PA AND LATon No significant inter tatiana change compared to 02/06/2019. Small bibasilar pleural effusions with left basilar atelectasis. Recent CABG with stable mediastinal contours. ST/trw Workstation ID: [id number] [facility] EXAMINATION: XR CHES T AP/PA AND [...] median sternotomy and CABG. Stable mediastinal contours. [facility] Interface, Rad In Fu ji Speechq [...] stable mediastinal contours. ST/trw Workstation ID: [id number] [facility] XR CHEST AP/PA AND LATon Slight fluid and atelectasis suggested in the left lung base showing improvement from the prior study. Workstation ID: [id number] [facility] EXAMINATION: XR CHES T AP/PA AND [...] base. Lung markings appear to be unremarkable. [facility], Rad In Fu ji Speechq - 02/06/2019 [...] from the prior study. Workstation ID: [id number] [facility] Basic Metabolic Panelon 01-13 Anion gap [Moles/Vol] 9 mmol/L Low 10 - 2 0 mmol/L [facility] Calcium [Mass/Vol] 8.6 mg/dL 8.4 - 10. 2 mg/dL [facility] Chloride [Moles/Vol] 106 mmol/L 98 - 10 8 mmol/L [facility] Creatinine [Mass/Vol] 1.06 mg/dL 0.5 - 1.3 mg/dL [facility] GFR/1.73 sq M predicted among non-blacks MDRD (S/P/Bld) [Vol rate/Area] The eGFR should be used for monitoring renal function only and not for medication dosing. [facility] GFR/1.73 sq M.predicted CKD-EPI (S/P/Bld) [Vol rate/Area] 83 >=60 mL/min/1.7 3 m2 [facility] Glucose [Mass/Vol] 106 mg/dL High 65 - 99 mg/dL [facility] HCO3 [Moles/Vol] 27 mmol/L 21 - 32 mmol/L [facility] Interpretation and review of laboratory results Abnormal [facility] Potassium [Moles/Vol] 4.0 mmol/L 3.5 - 5.1 mmol/L [facility] Sodium [Moles/Vol] 138 mmol/L 135 - 145 mmol/L [facility] Urea nitrogen [Mass/Vol] 27 mg/dL High 8 - 25 mg/dL [facility] Urea nitrogen/Creatinine [Mass ratio] 25.5 mg/mg High [facility] CBCon 02-04-2019 Erythrocyte distribution width (RBC) [Entitic vol] 14.3 % 11.6 - 14.8 % [facility] Hematocrit (Bld) [Volume fraction] 35.4 % Low 41 - 53 % [facility] Hemoglobin (Bld) [Mass/Vol] 11.5 g/dL Low 13.5 - 17.5 g/dL [facility] Interpretation and review of laboratory results Abnormal [facility] MCH (RBC) [Entitic mass] 27.8 pg 26 - 34 pg [facility] MCHC (RBC) [Mass/Vol] 32.5 g/dL 31 - 3 7 g/dL [facility] MCV (RBC) [Entitic vol] 85.5 fL 80 - 100 fL [facility] Nucleated RBC (Bld) [#/Vol] 0.00 10*3/uL [facility] Nucleated RBC/100 WBC (Bld) [Ratio] 0.0 % [facility] Platelet mean volume (Bld) [Entitic vol] 8.6 fL Low 9 - 15.5 fL [facility] Platelets (Bld) [#/Vol] 514 10*3/uL High [facility] RBC (Bld) [#/Vol] 4.14 10*6/uL Low [facility] WBC (Bld) [#/Vol] 12.92 10*3/uL [facility] POC Glucoseon 02-04-2019 Glucose [Mass/Vol] 107 mg/dL High 65 - 99 mg/dL [facility] Interpretation and review of laboratory results Abnormal [facility] XR Chest 1 Viewon 02-04-2019 Improving congestive pattern and lung volumes with persistent consolidation and small effusion in the left base. Workstation ID: [id number] [facility] EXAMINATION: XR CHES T PA/AP HISTORY: post-op COMPARISON: Chest radiograph, yesterday at 11:49 a.m. FINDINGS: Cardiomediastinal silhouette is normal. Improved lung volumes and diminishing vascular congestion. Persistent atelectasis and small effusion at the left base. No large right pleural effusion. No acute osseous abnormality. Prior median sternotomy. [facility] Sharda, Keith In Fu ji Speechq [...] in the left base. Workstation ID: [id number] [facility] Basic Metabolic Panelon 01-13 Anion gap [Moles/Vol] 11 mmol/L 10 - 2 0 mmol/L [facility] Calcium [Mass/Vol] 9.0 mg/dL 8.4 - 10. 2 mg/dL [facility] Chloride [Moles/Vol] 104 mmol/L 98 - 10 8 mmol/L [facility] Creatinine [Mass/Vol] 1.03 mg/dL 0.5 - 1.3 mg/dL [facility] GFR/1.73 sq M predicted among non-blacks MDRD (S/P/Bld) [Vol rate/Area] The eGFR should be used for monitoring renal function only and not for medication dosing. [facility] GFR/1.73 sq M.predicted CKD-EPI (S/P/Bld) [Vol rate/Area] 86 >=60 mL/min/1.7 3 m2 [facility] Glucose [Mass/Vol] 109 mg/dL High 65 - 99 mg/dL [facility] HCO3 [Moles/Vol] 26 mmol/L 21 - 32 mmol/L [facility] Interpretation and review of laboratory results Abnormal [facility] Potassium [Moles/Vol] 4.1 mmol/L 3.5 - 5.1 mmol/L [facility] Sodium [Moles/Vol] 137 mmol/L 135 - 145 mmol/L [facility] Urea nitrogen [Mass/Vol] 26 mg/dL High 8 - 25 mg/dL [facility] Urea nitrogen/Creatinine [Mass ratio] 25.2 mg/mg High [facility] CBCon 02-03-2019 Erythrocyte distribution width (RBC) [Entitic vol] 14.3 % 11.6 - 14.8 % [facility] Hematocrit (Bld) [Volume fraction] 36.8 % Low 41 - 53 % [facility] Hemoglobin (Bld) [Mass/Vol] 12.1 g/dL Low 13.5 - 17.5 g/dL [facility] Interpretation and review of laboratory results Abnormal [facility] MCH (RBC) [Entitic mass] 27.9 pg 26 - 34 pg [facility] MCHC (RBC) [Mass/Vol] 32.9 g/dL 31 - 3 7 g/dL [facility] MCV (RBC) [Entitic vol] 84.8 fL 80 - 100 fL [facility] Nucleated RBC (Bld) [#/Vol] 0.00 10*3/uL [facility] Nucleated RBC/100 WBC (Bld) [Ratio] 0.0 % [facility] Platelet mean volume (Bld) [Entitic vol] 8.6 fL Low 9 - 15.5 fL [facility] Platelets (Bld) [#/Vol] 525 10*3/uL High [facility] RBC (Bld) [#/Vol] 4.34 10*6/uL Low [facility] ealth WBC (Bld) [#/Vol] 14.25 10*3/uL [facility] POC Glucoseon 02-03-2019 Glucose [Mass/Vol] 117 mg/dL High 65 - 99 mg/dL [facility] Interpretation and review of laboratory results Abnormal [facility] Glucose [Mass/Vol] 111 mg/dL High 65 - 99 mg/dL [facility] Interpretation and review of laboratory results Abnormal [facility] VR Thoracentesis Lefton -2 1. Small left pleura l effusion 2. Successful ultrasound-guided left thoracentesis. Approximately 250 mL of blood-tinged fluid was removed from the left pleural space. A sample of fluid was placed in the custody of the patient's nurse for potential laboratory analysis to be ordered by the primary service. Workstation ID: [id number] [facility] EXAMINATION: ULTRASOUND-GUIDED LEFT THORACENTESIS HISTORY: Recent coronary artery bypass grafting. Left pleural effusion. SUPERINTENDENT [employer]BUTION(S): Gilmer Zelaya MD COMPARISON: Chest radiograph dated [...] 1% lidocaine. Under ultrasound guidance, a 5 Indian DineInTime slip catheter and introducer needle were advanced [...] and the patient tolerated the procedure well. [facility] Interface, Rad In Fu ji Speechq - 02/03/2019 10:12 PM EST EXAMINATION: ULTRASOUND-GUIDED LEFT THORACENTESIS HISTORY: Recent coronary artery bypass grafting. Left pleural effusion. SUPERINTENDENT GAS DISTRIBUTION(S): Gilmer Zelaya MD COMPARISON: Chest radiograph dated [...] 1% lidocaine. Under ultrasound guidance, a 5 Indian DineInTime slip catheter and introducer needle were advanced [...] by the primary service. Workstation ID: [id number] [facility] XR Chest 1 Viewon 02-03-2019 No pneumothorax stat us post left thoracentesis. RPS/trw Workstation ID: [id number] [facility] EXAMINATION: XR CHES T PA/AP 02/03/2019 [...] small left pleural effusion and strandy atelectasis. [facility] Interface, Rad In Fu ji Speechq [...] post left thoracentesis. RPS/trw Workstation ID: [id number] [facility] Interface, Rad In Fu ji Speechq [...] 3. Mild cardiomegaly. RSR/hb Workstation ID: [id number] [facility] EXAMINATION: XR CHES T PA/AP 02/03/2019 [...] is similar. The right lung is clear. [facility] 1. Low lung volumes. 2. Left basal effusion with atelectasis and/or infiltrate similar. 3. Mild cardiomegaly. RSR/hb Workstation ID: [id number] [facility] CBCon 02-02-2019 Erythrocyte distribution width (RBC) [Entitic vol] 14.4 % 11.6 - 14.8 % [facility] Hematocrit (Bld) [Volume fraction] 34.8 % Low 41 - 53 % [facility] Hemoglobin (Bld) [Mass/Vol] 11.4 g/dL Low 13.5 - 17.5 g/dL [facility] Interpretation and review of laboratory results Abnormal [facility] MCH (RBC) [Entitic mass] 27.9 pg 26 - 34 pg [facility] MCHC (RBC) [Mass/Vol] 32.8 g/dL 31 - 3 7 g/dL [facility] MCV (RBC) [Entitic vol] 85.3 fL 80 - 100 fL [facility] Nucleated RBC (Bld) [#/Vol] 0.02 10*3/uL High [facility] Nucleated RBC/100 WBC (Bld) [Ratio] 0.1 % [facility] Platelet mean volume (Bld) [Entitic vol] 8.9 fL Low 9 - 15.5 fL [facility] Platelets (Bld) [#/Vol] 555 10*3/uL High [facility] RBC (Bld) [#/Vol] 4.08 10*6/uL [facility] ealth WBC (Bld) [#/Vol] 14.43 10*3/uL [facility] CT PULMONARY ARTERIESon 12-2 1. Txek-nd-ytgltngi effusion with mild atelectasis in the left lung base. Remaining lungs show hyperaeration with mild chronic changes. 2. No evidence for acute mediastinal process or pulmonary embolism, it should be noted that there was limited opacification of the pulmonary arterial tree. 3. No evidence for lymphadenopathy. 4. Chronic and postsurgical changes noted. Workstation ID: [id number] [facility] EXAMINATION: CT PULM ONARY ARTERIES HISTORY: [...] good aeration. There is mild atelectasis and pmzm-kc-oyfkjmjd effusion in the left lung base. Slight chronic changes are noted off the hilar and infrahilar regions. No suspicious nodule is noted. Bone density is unremarkable. No bony lesions are noted throughout. No advanced degenerative changes are noted diffusely. No obvious bony lesions are noted. The subcutaneous tissues are unremarkable. [facility], Rad In Fu ji Speechq - 02/02/2019 [...] good aeration. There is mild atelectasis and ykfd-or-ojrkwbqw effusion in the left lung base. Slight chronic changes are noted off the hilar and infrahilar regions. No suspicious nodule is noted. Bone density is unremarkable. No bony lesions are noted throughout. No advanced degenerative changes are noted diffusely. No obvious bony lesions are noted. The subcutaneous tissues are unremarkable. IMPRESSION: 1. Dkzi-xb-nwbttzzd effusion with mild atelectasis in the left lung base. Remaining lungs show hyperaeration with mild chronic changes. 2. No evidence for acute mediastinal process or pulmonary embolism, it should be noted that there was limited opacification of the pulmonary arterial tree. 3. No evidence for lymphadenopathy. 4. Chronic and postsurgical changes noted. Workstation ID: [id number] [facility] POC ARTERIAL BLOOD GAS PANEL -AKIBrennan Srini Wayne 02-02-2019 Alveolar-arterial oxygen Partial pressure difference 28.2 mm Hg [facility] Base excess Calc (Bld) [Moles/Vol] 3.6 mmol/L High [facility] Breath rate setting Ventilator synchronized intermittent mandatory 0 [facility] CO2 (Bld) [Partial pressure] 38.6 mm[Hg] [facility] HCO3 (Bld) [Moles/Vol] 27.6 mmol/L High 22 - 26 mmol/L [facility] Hematocrit (BldA) [Volume fraction] 36.8 % Low 41 - 53 % [facility] Hemoglobin (Bld) [Mass/Vol] 12.0 g/dL Low 13.5 - 18 g/dL [facility] Inhaled oxygen concentration 21 % [facility] Interpretation and review of laboratory results Abnormal [facility] Oxygen (Bld) [Partial pressure] 72 mm[Hg] Low [facility] PEEP Respiratory system 0 [facility] pH (Bld) 7.46 [pH] High [facility] SaO2% (BldA) [Mass fraction] 95.1 % 92 - 99 % [facility] Specimen source Nom (Unsp spec) Radial, left [facility] Tidal volume setting Ventilator 0 [facility] POC Glucoseon 02-02-2019 Glucose [Mass/Vol] 93 mg/dL 65 - 99 mg/dL [facility] Interpretation and review of laboratory results Normal [facility] XR CHEST AP/PA AND LATon 1. Interval developm ent of left basilar consolidation with left pleural effusion. 2. Trace right pleural effusion. [id number] Workstation ID: [id number] [facility] EXAMINATION: TWO-VIE W CHEST HISTORY: ORDERING [...] normal. No acute osseous lesions are seen. [facility] Interface, Rad In Fu ji Speechq [...] pleural effusion. 2. Trace right pleural effusion. VKR/[place] Workstation ID: [id number] [facility] XR CHEST AP/PA AND LATon Pulmonary venous congestion with small pleural effusions. Recent CABG with stable mediastinal contours. ST/ Workstation ID: [id number] [facility] EXAMINATION: XR CHES T AP/PA AND [...] median sternotomy and CABG. Stable mediastinal contours. [facility] Interface, Rad In Luis [place] ji [...] stable mediastinal contours. / Workstation ID: [id number] [facility] Basic Metabolic Panelon 01-12 Anion gap [Moles/Vol] 11 mmol/L 10 - 2 0 mmol/L [facility] Calcium [Mass/Vol] 8.6 mg/dL 8.4 - 10. 2 mg/dL [facility] Chloride [Moles/Vol] 105 mmol/L 98 - 10 8 mmol/L [facility] Creatinine [Mass/Vol] 1.08 mg/dL 0.5 - 1.3 mg/dL [facility] GFR/1.73 sq M.predicted CKD-EPI (S/P/Bld) [Vol rate/Area] 81 >=60 mL/min/1.7 3 m2 [facility] Glucose [Mass/Vol] 101 mg/dL High 65 - 99 mg/dL [facility] HCO3 [Moles/Vol] 26 mmol/L 21 - 32 mmol/L [facility] Interpretation and review of laboratory results Abnormal [facility] Potassium [Moles/Vol] 4.2 mmol/L 3.5 - 5.1 mmol/L [facility] Sodium [Moles/Vol] 138 mmol/L 135 - 145 mmol/L [facility] Urea nitrogen [Mass/Vol] 29 mg/dL High 8 - 25 mg/dL [facility] Urea nitrogen/Creatinine [Mass ratio] 26.9 mg/mg High [facility] The eGFR should be u sed for monitoring renal function only and not for medication dosing. [facility] CBCon 01-29-2019 Erythrocyte distribution width (RBC) [Entitic vol] 14.2 % 11.6 - 14.8 % [facility] Hematocrit (Bld) [Volume fraction] 33.7 % Low 41 - 53 % [facility] Hemoglobin (Bld) [Mass/Vol] 10.9 g/dL Low 13.5 - 17.5 g/dL [facility] Interpretation and review of laboratory results Abnormal [facility] MCH (RBC) [Entitic mass] 27.9 pg 26 - 34 pg [facility] MCHC (RBC) [Mass/Vol] 32.3 g/dL 31 - 3 7 g/dL [facility] MCV (RBC) [Entitic vol] 86.2 fL 80 - 100 fL [facility] Nucleated RBC (Bld) [#/Vol] 0.00 10*3/uL [facility] Nucleated RBC/100 WBC (Bld) [Ratio] 0.0 % [facility] Platelet mean volume (Bld) [Entitic vol] 9.7 fL 9 - 15.5 fL [facility] Platelets (Bld) [#/Vol] 277 10*3/uL [facility] RBC (Bld) [#/Vol] 3.91 10*6/uL Low [facility] ealth WBC (Bld) [#/Vol] 9.70 10*3/uL [facility] ECG 12-LEADon 01-29-2019 Atrial Rate 84 BPM [facility] P [place] 51 degrees [facility] P-R Interval 168 ms [facility] Q-T Interval 344 ms [facility] QRS Duration 92 ms [facility] QTC Calculation (Bezet) 406 ms [facility] R [place] 17 degrees [facility] T [place] 66 degrees [facility] Ventricular Rate 84 BPM [facility] Normal sinus rhythm Anterolateral infarct , age undetermined Abnormal ECG Confirmed by Torie Au MD ([id number]) on 01/29/2019 1:02:22 PM [facility] Magnesium Levelon 01-29-2019 Interpretation and review of laboratory results Normal [facility] Magnesium [Mass/Vol] 2.3 mg/dL 1.6 - 2 .4 mg/dL [facility] POC Glucoseon 01-29-2019 Glucose [Mass/Vol] 102 mg/dL High 65 - 99 mg/dL [facility] Interpretation and review of laboratory results Abnormal [facility] Glucose [Mass/Vol] 104 mg/dL High 65 - 99 mg/dL [facility] Interpretation and review of laboratory results Abnormal [facility] TROPONINon 01-29-2019 Troponin I.cardiac [Mass/Vol] ng/mL <=45 ng/L [facility] Troponin I.cardiac [Mass/Vol] Normal [facility] XR Chest 1 Viewon 01-29-2019 Interval removal of the right internal jugular catheter. The cardiopulmonary structures are stable. 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 TECHNIQUE: AP upright portable chest. FINDINGS: The lungs are clear and well expanded. Hemidiaphragms are smooth. Heart size is normal. There are mediastinal surgical changes with sternal wires present. The right internal jugular catheter has been removed. patient monitor leads are noted upon the chest wall. IMPRESSION: Interval removal of the right internal jugular catheter. The cardiopulmonary structures are stable. 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 TECHNIQUE: AP upright portable chest. FINDINGS: The lungs are clear and well expanded. Hemidiaphragms are smooth. Heart size is normal. There are mediastinal surgical changes with sternal wires present. The right internal jugular catheter has been removed. patient monitor leads are noted upon the chest wall. [facility] Basic Metabolic Panelon 01-12 Anion gap [Moles/Vol] 9 mmol/L Low 10 - 2 0 mmol/L [facility] Calcium [Mass/Vol] 8.2 mg/dL Low 8.4 - 10. 2 mg/dL [facility] Chloride [Moles/Vol] 105 mmol/L 98 - 10 8 mmol/L [facility] Creatinine [Mass/Vol] 1.04 mg/dL 0.5 - 1.3 mg/dL [facility] GFR/1.73 sq M.predicted CKD-EPI (S/P/Bld) [Vol rate/Area] 85 >=60 mL/min/1.7 3 m2 [facility] Glucose [Mass/Vol] 105 mg/dL High 65 - 99 mg/dL [facility] HCO3 [Moles/Vol] 26 mmol/L 21 - 32 mmol/L [facility] Interpretation and review of laboratory results Abnormal [facility] Potassium [Moles/Vol] 4.1 mmol/L 3.5 - 5.1 mmol/L [facility] Sodium [Moles/Vol] 136 mmol/L 135 - 145 mmol/L [facility] Urea nitrogen [Mass/Vol] 31 mg/dL High 8 - 25 mg/dL [facility] Urea nitrogen/Creatinine [Mass ratio] 29.8 mg/mg High [facility] The eGFR should be u sed for monitoring renal function only and not for medication dosing. [facility] CBCon 01-28-2019 Erythrocyte distribution width (RBC) [Entitic vol] 14.2 % 11.6 - 14.8 % [facility] Hematocrit (Bld) [Volume fraction] 30.5 % Low 41 - 53 % [facility] Hemoglobin (Bld) [Mass/Vol] 10.1 g/dL Low 13.5 - 17.5 g/dL [facility] Interpretation and review of laboratory results Abnormal [facility] MCH (RBC) [Entitic mass] 28.2 pg 26 - 34 pg [facility] MCHC (RBC) [Mass/Vol] 33.1 g/dL 31 - 3 7 g/dL [facility] MCV (RBC) [Entitic vol] 85.2 fL 80 - 100 fL [facility] Nucleated RBC (Bld) [#/Vol] 0.00 10*3/uL [facility] Nucleated RBC/100 WBC (Bld) [Ratio] 0.0 % [facility] Platelet mean volume (Bld) [Entitic vol] 9.8 fL 9 - 15.5 fL [facility] Platelets (Bld) [#/Vol] 212 10*3/uL [facility] RBC (Bld) [#/Vol] 3.58 10*6/uL Low [facility] ealth WBC (Bld) [#/Vol] 10.07 10*3/uL [facility] Magnesium Levelon 01-28-2019 Interpretation and review of laboratory results Normal [facility] Magnesium [Mass/Vol] 2.4 mg/dL 1.6 - 2 .4 mg/dL [facility] POC Glucoseon 01-28-2019 Glucose [Mass/Vol] 113 mg/dL High 65 - 99 mg/dL [facility] Interpretation and review of laboratory results Abnormal [facility] Glucose [Mass/Vol] 114 mg/dL High 65 - 99 mg/dL [facility] Interpretation and review of laboratory results Abnormal [facility] Glucose [Mass/Vol] 93 mg/dL 65 - 99 mg/dL [facility] Interpretation and review of laboratory results Normal [facility] Glucose [Mass/Vol] 110 mg/dL High 65 - 99 mg/dL [facility] Interpretation and review of laboratory results Abnormal [facility] Glucose [Mass/Vol] 115 mg/dL High 65 - 99 mg/dL [facility] Interpretation and review of laboratory results Abnormal [facility] XR Chest 1 Viewon 01-28-2019 Cardiomegaly. No pulmonary edema. Linear scarring or atelectasis at the left lung apex and left lung base, as before. [facility] Workstation ID: [id number] [facility] Interface, Rad In Luis Fernando yi [...] without long-term current use of insulin ([facility]) I25.10 Coronary artery disease, angina presence unspecified, unspecified vessel or lesion type, unspecified whether [place] or transplanted heart COMPARISON: 01/27/2019 and 01/26/2019. [...] apex and left lung base, as before. [facility] Workstation ID: [id number] [facility] EXAMINATION: XR CHES T PA/AP HISTORY: ORDERING SYSTEM PROVIDED HISTORY: post open heart surgery, TECHNOLOGIST PROVIDED HISTORY: Illness/Other Reason for exam: S/P CABG Cancer History: u Surgery, RadiationHistory: yes Encounter Type: Subsequent/Follow-up Additional signs and symptoms: NA ORDERING SYSTEM PROVIDED DIAGNOSIS CODES: R07.89 Chest pain, atypical E11.9 Type 2 diabetes mellitus without complication, without long-term current use of insulin ([facility]) I25.10 Coronary artery disease, angina presence unspecified, unspecified vessel or lesion type, unspecified whether [place] or transplanted heart COMPARISON: 01/27/2019 and 01/26/2019. FINDINGS: Right IJ central venous catheter with tip projected over the mid SVC. Prior median sternotomy and CABG. Cardiomegaly. No pulmonary edema, pleural effusion or pneumothorax. Persistent linear atelectatic changes at the left lung apex and left lung base. Osseous structures are intact. [facility] AMYLASEon 01-27-2019 Amylase [Catalytic activity/Vol] 28 U/L 25 - 115 U/L [facility] Interpretation and review of laboratory results Normal [facility] Basic Metabolic Panelon 01-12 Anion gap [Moles/Vol] 16 mmol/L 10 - 2 0 mmol/L [facility] Calcium [Mass/Vol] 8.6 mg/dL 8.4 - 10. 2 mg/dL [facility] Chloride [Moles/Vol] 97 mmol/L Low 98 - 10 8 mmol/L [facility] Creatinine [Mass/Vol] 3.10 mg/dL High 0.5 - 1.3 mg/dL [facility] GFR/1.73 sq M.predicted CKD-EPI (S/P/Bld) [Vol rate/Area] 23 Low >=60 mL/min/1.7 3 m2 [facility] Glucose [Mass/Vol] 123 mg/dL High 65 - 99 mg/dL [facility] HCO3 [Moles/Vol] 23 mmol/L 21 - 32 mmol/L [facility] Interpretation and review of laboratory results Abnormal [facility] Potassium [Moles/Vol] 4.5 mmol/L 3.5 - 5.1 mmol/L [facility] Sodium [Moles/Vol] 131 mmol/L Low 135 - 145 mmol/L [facility] Urea nitrogen [Mass/Vol] 43 mg/dL High 8 - 25 mg/dL [facility] Urea nitrogen/Creatinine [Mass ratio] 13.9 mg/mg [facility] The eGFR should be u sed for monitoring renal function only and not for medication dosing. [facility] CBCon 01-27-2019 Erythrocyte distribution width (RBC) [Entitic vol] 14.0 % 11.6 - 14.8 % [facility] Hematocrit (Bld) [Volume fraction] 33.9 % Low 41 - 53 % [facility] Hemoglobin (Bld) [Mass/Vol] 11.2 g/dL Low 13.5 - 17.5 g/dL [facility] Interpretation and review of laboratory results Abnormal [facility] MCH (RBC) [Entitic mass] 28.3 pg 26 - 34 pg [facility] MCHC (RBC) [Mass/Vol] 33.0 g/dL 31 - 3 7 g/dL [facility] MCV (RBC) [Entitic vol] 85.6 fL 80 - 100 fL [facility] Nucleated RBC (Bld) [#/Vol] 0.00 10*3/uL [facility] Nucleated RBC/100 WBC (Bld) [Ratio] 0.0 % [facility] Platelet mean volume (Bld) [Entitic vol] 10.2 fL 9 - 15.5 fL [facility] Platelets (Bld) [#/Vol] 194 10*3/uL [facility] RBC (Bld) [#/Vol] 3.96 10*6/uL Low [facility] ealt WBC (Bld) [#/Vol] 16.03 10*3/uL [facility] ECG 12-LEADon 01-27-2019 Atrial Rate 105 BPM [facility] P [place] 50 degrees [facility] P-R Interval 144 ms [facility] Q-T Interval 314 ms [facility] QRS Duration 86 ms [facility] QTC Calculation (Bezet) 415 ms [facility] R [place] 14 degrees [facility] T [place] 52 degrees [facility] Ventricular Rate 105 BPM [facility] th Sinus tachycardia Possible Left atrial enlargement Low voltage QRS Cannot rule out Anteroseptal infarct , age undetermined Lateral injury pattern ACUTE FL / STEMI Abnormal ECG Confirmed by Kelsea WARREN, Torie ([id number]) on 01/27/2019 2:33:32 PM [facility] ECHOCARDIOGRAM LIMITED WITH CONTRASTon 01-27-2019 Interface, Rad In [facility] [employer]ch[facility]acs - 01/27/2019 8:22 AM EST [address] [address] [place] [address] ----- ECHOCARDIOGRAPHY REPORT - [facility] ----- Name: FERNANDO HELTON Age: 48 years Date: 01/27/2019 Hospital #: [id number] : 1970 Room: [address] [place] [address] #: [id number] Sex: M Tech: Giovana Hale Ordering Physician: [id number] KRISTIN MACHUCA Height: 66.00 in Sys BP: 92 WALKER cc: , Weight: 250.00 Mira BP: 48 Reading Physician: [id number] TORIE TERRELL Rhythm: Normal sinus AU/ rhythm Electronically Signed [id number] TORIE TERRELL BSA: 2.20 m by: AU [...] 75 Female) LA Index (BP) TAPSE LAESV RUSH SEATER NOTES: Limited subcostal views due to wound dressings. Definity (if used): 2ml Final IMPRESSION: Limited echo for repeat assessment of LV function [address] [address] [place] [address] ----- ECHOCARDIOGRAPHY REPORT - [facility] ----- Name: FERNANDO HELTON Age: 48 years Date: 01/27/2019 Hospital #: [id number] : 1970 Room: [address] [place] [address] #: [id number] Sex: M Tech: Giovana Hale Ordering Physician: [id number] KRISTIN MACHUCA Height: 66.00 in Sys BP: 92 WALKER cc: , Weight: 250.00 Mira BP: 48 Reading Physician: [id number] TORIE TERRELL Rhythm: Normal sinus KELSEA/ rhythm Electronically Signed [id number] TORIE TERRELL BSA: 2.20 m by: KELSEA [...] 75 Female) LA Index (BP) TAPSE LAESV RUSH SEATER NOTES: Limited subcostal views due to wound dressings. Definity (if used): 2ml Final [facility] Limited echo for rep eat assessment of LV function [facility] Hepatic Function Panelon Albumin [Mass/Vol] 2.6 g/dL Low 3.2 - 5.2 g/dL [facility] ALP [Catalytic activity/Vol] 41 U/L 40 - 150 U/L [facility] ALT [Catalytic activity/Vol] 35 U/L 14 - 65 U/L [facility] AST [Catalytic activity/Vol] 39 U/L 0 - 45 U/L [facility] Bilirubin [Mass/Vol] 0.8 mg/dL 0 - 1.3 mg/dL [facility] Bilirubin.conjugated [Mass/Vol] 0.2 mg/dL 0 - 0.4 mg/dL [facility] Protein [Mass/Vol] 6.1 g/dL 6 - 8 g/dL [facility] alth Lipaseon 01-27-2019 Lipase [Catalytic activity/Vol] 57 U/L Low 73 - 393 U/L [facility] Magnesium Levelon 01-27-2019 Interpretation and review of laboratory results Normal [facility] Magnesium [Mass/Vol] 2.4 mg/dL 1.6 - 2 .4 mg/dL [facility] Otheron 01-27-2019 Interpretation and review of laboratory results Abnormal [facility] POC Glucoseon 01-27-2019 Glucose [Mass/Vol] 113 mg/dL High 65 - 99 mg/dL [facility] Interpretation and review of laboratory results Abnormal [facility] Glucose [Mass/Vol] 111 mg/dL High 65 - 99 mg/dL [facility] Interpretation and review of laboratory results Abnormal [facility] Glucose [Mass/Vol] 117 mg/dL High 65 - 99 mg/dL [facility] Interpretation and review of laboratory results Abnormal [facility] TROPONINon 01-27-2019 Troponin I.cardiac [Mass/Vol] Normal [facility] Troponin I.cardiac [Mass/Vol] 28 ng/L <=45 [facility] XR ABDOMEN 1 VIEWon 01-28-20 19 [...] without long-term current use of insulin ([facility]) I25.10 Coronary artery disease, angina presence unspecified, unspecified vessel or lesion type, unspecified whether [place] or transplanted heart COMPARISON: CT abdomen and [...] distention. [facility]/ Workstation ID: [id number] [facility] EXAMINATION: XR ABDO MEN /KUB/FLAT PLATE/1 VIEW 01/27/2019 7:56 am HISTORY: ORDERING SYSTEM PROVIDED HISTORY: ABD distension, TECHNOLOGIST PROVIDED HISTORY: Illness/Other Reason for exam: ABD distension Cancer History: u Surgery, RadiationHistory: yes Encounter Type: Initial Additional signs and symptoms: ABD [facility] ORDERING SYSTEM PROVIDED DIAGNOSIS CODES: R07.89 Chest pain, atypical E11.9 Type 2 diabetes mellitus without complication, without long-term current use of insulin ([facility]) I25.10 Coronary artery disease, angina presence unspecified, unspecified vessel or lesion type, unspecified whether [place] or transplanted heart COMPARISON: CT abdomen and pelvis 05/01/2015. FINDINGS: Two images were utilized to encompass the abdomen and pelvis. There is mild gaseous distention of the colon with gas extending into the rectum. No definite small bowel dilatation. No large collection of free intraperitoneal air. Postsurgical findings median sternotomy. [facility] Nonobstructive bowel gas pattern with mild colonic distention. SLM/hb Workstation ID: [id number] [facility] XR Chest 1 Viewon 01-27-2019 Status post sternoto my. Mild residual left apical and left base atelectatic findings. RWA/kls Workstation ID: [id number] [facility] Interface, Rad In Fu ji Speechq [...] left apical and left base atelectatic findings. RWA/Zangos Workstation ID: [id number] [facility] EXAMINATION: XR CHES T PA/AP HISTORY: [...] No major consolidation or edema is seen. [facility] Basic Metabolic Panelon 01-12 Anion gap [Moles/Vol] 13 mmol/L 10 - 2 0 mmol/L [facility] Calcium [Mass/Vol] 8.3 mg/dL Low 8.4 - 10. 2 mg/dL [facility] Chloride [Moles/Vol] 102 mmol/L 98 - 10 8 mmol/L [facility] Creatinine [Mass/Vol] 1.03 mg/dL 0.5 - 1.3 mg/dL [facility] GFR/1.73 sq M.predicted CKD-EPI (S/P/Bld) [Vol rate/Area] 86 >=60 mL/min/1.7 3 m2 [facility] Glucose [Mass/Vol] 116 mg/dL High 65 - 99 mg/dL [facility] HCO3 [Moles/Vol] 24 mmol/L 21 - 32 mmol/L [facility] Interpretation and review of laboratory results Abnormal [facility] Potassium [Moles/Vol] 4.3 mmol/L 3.5 - 5.1 mmol/L [facility] Sodium [Moles/Vol] 135 mmol/L 135 - 145 mmol/L [facility] Urea nitrogen [Mass/Vol] 21 mg/dL 8 - 25 mg/dL [facility] Urea nitrogen/Creatinine [Mass ratio] 20.4 mg/mg High [facility] The eGFR should be u sed for monitoring renal function only and not for medication dosing. [facility] CBCon 01-26-2019 Erythrocyte distribution width (RBC) [Entitic vol] 14.1 % 11.6 - 14.8 % [facility] Hematocrit (Bld) [Volume fraction] 39.4 % Low 41 - 53 % [facility] Hemoglobin (Bld) [Mass/Vol] 13.0 g/dL Low 13.5 - 17.5 g/dL [facility] Interpretation and review of laboratory results Abnormal [facility] MCH (RBC) [Entitic mass] 27.8 pg 26 - 34 pg [facility] MCHC (RBC) [Mass/Vol] 33.0 g/dL 31 - 3 7 g/dL [facility] MCV (RBC) [Entitic vol] 84.4 fL 80 - 100 fL [facility] Nucleated RBC (Bld) [#/Vol] 0.00 10*3/uL [facility] Nucleated RBC/100 WBC (Bld) [Ratio] 0.0 % [facility] Platelet mean volume (Bld) [Entitic vol] 10.2 fL 9 - 15.5 fL [facility] Platelets (Bld) [#/Vol] 183 10*3/uL [facility] RBC (Bld) [#/Vol] 4.67 10*6/uL [facility] ealth WBC (Bld) [#/Vol] 14.20 10*3/uL [facility] Magnesium Levelon 01-26-2019 Interpretation and review of laboratory results Normal [facility] Magnesium [Mass/Vol] 2.2 mg/dL 1.6 - 2 .4 mg/dL [facility] POC Glucoseon 01-26-2019 Glucose [Mass/Vol] 128 mg/dL High 65 - 99 mg/dL [facility] Interpretation and review of laboratory results Abnormal [facility] Glucose [Mass/Vol] 112 mg/dL High 65 - 99 mg/dL [facility] Interpretation and review of laboratory results Abnormal [facility] Glucose [Mass/Vol] 111 mg/dL High 65 - 99 mg/dL [facility] Interpretation and review of laboratory results Abnormal [facility] Glucose [Mass/Vol] 117 mg/dL High 65 - 99 mg/dL [facility] Interpretation and review of laboratory results Abnormal [facility] Glucose [Mass/Vol] 110 mg/dL High 65 - 99 mg/dL [facility] Interpretation and review of laboratory results Abnormal [facility] Urine Aerobic Cultureon 01-12 Bacteria identified Aer cx Nom (Unsp spec) No Growth (<1,000 CFU/mL) [facility] XR Chest 1 Viewon 01-26-2019 Interface, [...] without long-term current use of insulin ([facility]) I25.10 Coronary artery disease, angina presence unspecified, unspecified vessel or lesion type, unspecified whether [place] or transplanted heart COMPARISON: 01/26/2019 FINDINGS: One-view [...] pulmonary venous congestion. ST/hb Workstation ID: [id number] [facility] EXAMINATION: XR CHES T PA/AP HISTORY: [...] unspecified vessel or lesion type, unspecified whether [place] or transplanted heart COMPARISON: 01/26/2019 FINDINGS: One-view chest x-ray. Left basilar chest tube has been removed. Stable position of right central venous catheter. Low lung volumes. No pneumothorax. Mild pulmonary venous congestion. No pleural effusions. Left upper lobe subsegmental linear atelectasis. Prominent heart size. Postoperative changes of median sternotomy and CABG. Stable mediastinal contours. [facility] Interval left basila r chest tube removal. No pneumothorax. Recent CABG. Stable mediastinal contours. Mild pulmonary venous congestion. ST/hb Workstation ID: [id number] [facility] Interval removal of right jugular [place] catheter. Sheath remains in place. No pneumothorax. Mild pulmonary venous congestion. Recent CABG postoperative changes. ST/dnb Workstation ID: [id number] [facility] Interface, Rad In Luis Fernando Garciaq [...] unspecified vessel or lesion type, unspecified whether [place] or transplanted heart COMPARISON: 01/25/2019. FINDINGS: One-view chest x-ray. Interval removal of right jugular [place] catheter. Right jugular sheath remains in place and, tip projects over the superior vena cava. Stable position of left basilar chest tube. Low lung volumes. No pneumothorax. Mild pulmonary venous congestion. Left upper lobe subsegmental linear atelectasis. No significant pleural effusions. Cardiomegaly. Postoperative changes of median sternotomy and CABG. Improved prominence of the mediastinum. IMPRESSION: Interval removal of right jugular [place] catheter. Sheath remains in place. No pneumothorax. Mild pulmonary venous congestion. Recent CABG postoperative changes. ST/dnb Workstation ID: [id number] [facility] EXAMINATION: XR CHES T PA/AP HISTORY: ORDERING SYSTEM PROVIDED HISTORY: post open heart surgery, TECHNOLOGIST PROVIDED HISTORY: Illness/Other Reason for exam: post cabg Cancer History: u Surgery, RadiationHistory: yes Encounter Type: Ongoing Additional signs and symptoms: . ORDERING SYSTEM PROVIDED DIAGNOSIS CODES: R07.89 Chest pain, atypical E11.9 Type 2 diabetes mellitus without complication, without long-term current use of insulin ([facility]) I25.10 Coronary artery disease, angina presence unspecified, unspecified vessel or lesion type, unspecified whether [place] or transplanted heart COMPARISON: 01/25/2019. FINDINGS: One-view chest x-ray. Interval removal of right jugular [place] catheter. Right jugular sheath remains in place and, tip projects over the superior vena cava. Stable position of left basilar chest tube. Low lung volumes. No pneumothorax. Mild pulmonary venous congestion. Left upper lobe subsegmental linear atelectasis. No significant pleural effusions. Cardiomegaly. Postoperative changes of median sternotomy and CABG. Improved prominence of the mediastinum. [facility] Basic Metabolic Panelon 01-12 Anion gap [Moles/Vol] 13 mmol/L 10 - 2 0 mmol/L [facility] Calcium [Mass/Vol] 8.2 mg/dL Low 8.4 - 10. 2 mg/dL [facility] Chloride [Moles/Vol] 100 mmol/L 98 - 10 8 mmol/L [facility] Creatinine [Mass/Vol] 1.20 mg/dL 0.5 - 1.3 mg/dL [facility] GFR/1.73 sq M.predicted CKD-EPI (S/P/Bld) [Vol rate/Area] 72 >=60 mL/min/1.7 3 m2 [facility] Glucose [Mass/Vol] 141 mg/dL High 65 - 99 mg/dL [facility] HCO3 [Moles/Vol] 24 mmol/L 21 - 32 mmol/L [facility] Interpretation and review of laboratory results Abnormal [facility] Potassium [Moles/Vol] 4.5 mmol/L 3.5 - 5.1 mmol/L [facility] Sodium [Moles/Vol] 132 mmol/L Low 135 - 145 mmol/L [facility] Urea nitrogen [Mass/Vol] 22 mg/dL 8 - 25 mg/dL [facility] Urea nitrogen/Creatinine [Mass ratio] 18.3 mg/mg [facility] The eGFR should be u sed for monitoring renal function only and not for medication dosing. [facility] CBCon 01-25-2019 Erythrocyte distribution width (RBC) [Entitic vol] 14.0 % 11.6 - 14.8 % [facility] Hematocrit (Bld) [Volume fraction] 38.5 % Low 41 - 53 % [facility] Hemoglobin (Bld) [Mass/Vol] 12.9 g/dL Low 13.5 - 17.5 g/dL [facility] Interpretation and review of laboratory results Abnormal [facility] MCH (RBC) [Entitic mass] 28.0 pg 26 - 34 pg [facility] MCHC (RBC) [Mass/Vol] 33.5 g/dL 31 - 3 7 g/dL [facility] MCV (RBC) [Entitic vol] 83.5 fL 80 - 100 fL [facility] Nucleated RBC (Bld) [#/Vol] 0.00 10*3/uL [facility] Nucleated RBC/100 WBC (Bld) [Ratio] 0.0 % [facility] Platelet mean volume (Bld) [Entitic vol] 9.9 fL 9 - 15.5 fL [facility] Platelets (Bld) [#/Vol] 211 10*3/uL [facility] RBC (Bld) [#/Vol] 4.61 10*6/uL [facility]alth WBC (Bld) [#/Vol] 15.83 10*3/uL [facility] Magnesium Levelon 01-25-2019 Interpretation and review of laboratory results Normal [facility] Magnesium [Mass/Vol] 2.0 mg/dL 1.6 - 2 .4 mg/dL [facility] POC ARTERIAL BLOOD GAS PANEL -PUL - [facility] 01-25-2019 Alveolar-arterial oxygen Partial pressure difference 41.2 mm Hg [facility] Base excess Calc (Bld) [Moles/Vol] 1.0 mmol/L [facility] Breath rate setting Ventilator synchronized intermittent mandatory 0 [facility] h CO2 (Bld) [Partial pressure] 36.3 mm[Hg] [facility] HCO3 (Bld) [Moles/Vol] 24.9 mmol/L 22 - 26 mmol/L [facility] Hematocrit (BldA) [Volume fraction] 44.2 % 41 - 53 % [facility] Hemoglobin (Bld) [Mass/Vol] 14.4 g/dL 13.5 - 18 g/dL [facility] Inhaled oxygen concentration 21 % [facility] Interpretation and review of laboratory results Abnormal [facility] Oxygen (Bld) [Partial pressure] 58 mm[Hg] Low [facility] pH (Bld) 7.44 [pH] [facility] Result Notification pt on room air [facility] SaO2% (BldA) [Mass fraction] 91.2 % Low 92 - 99 % [facility] Tidal volume setting Ventilator 0 [facility] POC Glucoseon 01-25-2019 Glucose [Mass/Vol] 125 mg/dL High 65 - 99 mg/dL [facility] Interpretation and review of laboratory results Abnormal [facility] Glucose [Mass/Vol] 109 mg/dL High 65 - 99 mg/dL [facility] Interpretation and review of laboratory results Abnormal [facility] Glucose [Mass/Vol] 129 mg/dL High 65 - 99 mg/dL [facility] Interpretation and review of laboratory results Abnormal [facility] Glucose [Mass/Vol] 119 mg/dL High 65 - 99 mg/dL [facility] Interpretation and review of laboratory results Abnormal [facility] Glucose [Mass/Vol] 117 mg/dL High 65 - 99 mg/dL [facility] Interpretation and review of laboratory results Abnormal [facility] Glucose [Mass/Vol] 127 mg/dL High 65 - 99 mg/dL [facility] Interpretation and review of laboratory results Abnormal [facility] Glucose [Mass/Vol] 132 mg/dL High 65 - 99 mg/dL [facility] Interpretation and review of laboratory results Abnormal [facility] Glucose [Mass/Vol] 140 mg/dL High 65 - 99 mg/dL [facility] Interpretation and review of laboratory results Abnormal [facility] Glucose [Mass/Vol] 129 mg/dL High 65 - 99 mg/dL [facility] Interpretation and review of laboratory results Abnormal [facility] XR Chest 1 Viewon 01-25-2019 EXAMINATION: [...] without long-term current use of insulin ([facility]) I25.10 Coronary artery disease, angina presence unspecified, unspecified vessel or lesion type, unspecified whether [place] or transplanted heart COMPARISON: 01/24/2019 FINDINGS: Endotracheal tube and NG tube have been removed. [place] catheter tip is in the right main pulmonary artery. Heart is mildly enlarged with a left ventricular contour. Vascularity is unremarkable. Right lung is unremarkable. There is been slight improvement in atelectasis in the left upper lobe. There is been interval development of a small amount of atelectasis versus early infiltrate in the left lung base. No pneumothorax is identified. [facility] Interface, Rad In Fu ji Speechq [...] unspecified vessel or lesion type, unspecified whether [place] or transplanted heart COMPARISON: 01/24/2019 FINDINGS: Endotracheal tube and NG tube have been removed. [place] catheter tip is in the right main [...] and endotracheal tube have been removed. 2. [place] catheter tip is in the right main pulmonary artery. 3. Improvement in the atelectasis in the left upper lobe. 4. Interval development of atelectasis versus early infiltrate in the left lung base. Workstation ID: [id number] [facility] 1. NG tube and endotracheal tube have been removed. 2. [place] catheter tip is in the right main pulmonary artery. 3. Improvement in the atelectasis in the left upper lobe. 4. Interval development of atelectasis versus early infiltrate in the left lung base. Workstation ID: [id number] [facility] APTTon 01-24-2019 aPTT Coag (Bld) [Time] 28 s [facility] Therapeutic range fo r APTT's is 68 - 104 seconds [facility] aPTT Coag (Bld) [Time] 27 s [facility] Therapeutic range fo r APTT's is 68 - 104 seconds [facility] aPTT Coag (Bld) [Time] 59 s [facility] Interpretation and review of laboratory results Abnormal [facility] Therapeutic range fo r APTT's is 68 - 104 seconds [facility] [facility] Basic Metabolic Panelon 01-12 Anion gap [Moles/Vol] 11 mmol/L 10 - 2 0 mmol/L [facility] Calcium [Mass/Vol] 8.6 mg/dL 8.4 - 10. 2 mg/dL [facility] Chloride [Moles/Vol] 100 mmol/L 98 - 10 8 mmol/L [facility] Creatinine [Mass/Vol] 1.25 mg/dL 0.5 - 1.3 mg/dL [facility] GFR/1.73 sq M.predicted CKD-EPI (S/P/Bld) [Vol rate/Area] 68 >=60 mL/min/1.7 3 m2 [facility] Glucose [Mass/Vol] 122 mg/dL High 65 - 99 mg/dL [facility] HCO3 [Moles/Vol] 25 mmol/L 21 - 32 mmol/L [facility] Interpretation and review of laboratory results Abnormal [facility] Potassium [Moles/Vol] 5.0 mmol/L 3.5 - 5.1 mmol/L [facility] Sodium [Moles/Vol] 131 mmol/L Low 135 - 145 mmol/L [facility] Urea nitrogen [Mass/Vol] 30 mg/dL High 8 - 25 mg/dL [facility] Urea nitrogen/Creatinine [Mass ratio] 24.0 mg/mg High [facility] The eGFR should be u sed for monitoring renal function only and not for medication dosing. [facility] Anion gap [Moles/Vol] 14 mmol/L 10 - 2 0 mmol/L [facility] Calcium [Mass/Vol] 8.2 mg/dL Low 8.4 - 10. 2 mg/dL [facility] Chloride [Moles/Vol] 100 mmol/L 98 - 10 8 mmol/L [facility] Creatinine [Mass/Vol] 1.31 mg/dL High 0.5 - 1.3 mg/dL [facility] GFR/1.73 sq M.predicted CKD-EPI (S/P/Bld) [Vol rate/Area] 64 >=60 mL/min/1.7 3 m2 [facility] Glucose [Mass/Vol] 130 mg/dL High 65 - 99 mg/dL [facility] HCO3 [Moles/Vol] 24 mmol/L 21 - 32 mmol/L [facility] Interpretation and review of laboratory results Abnormal [facility] Potassium [Moles/Vol] 3.7 mmol/L 3.5 - 5.1 mmol/L [facility] Sodium [Moles/Vol] 134 mmol/L Low 135 - 145 mmol/L [facility] Urea nitrogen [Mass/Vol] 26 mg/dL High 8 - 25 mg/dL [facility] Urea nitrogen/Creatinine [Mass ratio] 19.8 mg/mg [facility] The eGFR should be u sed for monitoring renal function only and not for medication dosing. [facility] Anion gap [Moles/Vol] 13 mmol/L 10 - 2 0 mmol/L [facility] Calcium [Mass/Vol] 9.0 mg/dL 8.4 - 10. 2 mg/dL [facility] Chloride [Moles/Vol] 98 mmol/L 98 - 10 8 mmol/L [facility] Creatinine [Mass/Vol] 1.19 mg/dL 0.5 - 1.3 mg/dL [facility] GFR/1.73 sq M.predicted CKD-EPI (S/P/Bld) [Vol rate/Area] 72 >=60 mL/min/1.7 3 m2 [facility] Glucose [Mass/Vol] 148 mg/dL High 65 - 99 mg/dL [facility] HCO3 [Moles/Vol] 27 mmol/L 21 - 32 mmol/L [facility] Interpretation and review of laboratory results Abnormal [facility] Potassium [Moles/Vol] 3.6 mmol/L 3.5 - 5.1 mmol/L [facility] Sodium [Moles/Vol] 134 mmol/L Low 135 - 145 mmol/L [facility] Urea nitrogen [Mass/Vol] 26 mg/dL High 8 - 25 mg/dL [facility] Urea nitrogen/Creatinine [Mass ratio] 21.8 mg/mg High [facility] The eGFR should be u sed for monitoring renal function only and not for medication dosing. [facility] CBCon 01-24-2019 Erythrocyte distribution width (RBC) [Entitic vol] 13.7 % 11.6 - 14.8 % [facility] Hematocrit (Bld) [Volume fraction] 36.8 % Low 41 - 53 % [facility] Hemoglobin (Bld) [Mass/Vol] 12.4 g/dL Low 13.5 - 17.5 g/dL [facility] Interpretation and review of laboratory results Abnormal [facility] MCH (RBC) [Entitic mass] 27.9 pg 26 - 34 pg [facility] MCHC (RBC) [Mass/Vol] 33.7 g/dL 31 - 3 7 g/dL [facility] MCV (RBC) [Entitic vol] 82.9 fL 80 - 100 fL [facility] Nucleated RBC (Bld) [#/Vol] 0.00 10*3/uL [facility] Nucleated RBC/100 WBC (Bld) [Ratio] 0.0 % [facility] Platelet mean volume (Bld) [Entitic vol] 10.1 fL 9 - 15.5 fL [facility] Platelets (Bld) [#/Vol] 203 10*3/uL [facility] RBC (Bld) [#/Vol] 4.44 10*6/uL Low [facility] WBC (Bld) [#/Vol] 12.07 10*3/uL [facility] CBC WITH AUTO DIFFERENTIALon 01-24-2019 Basophils (Bld) [#/Vol] 0.05 10*3/uL [facility] Basophils/100 WBC (Bld) 0.3 % [facility] E[facility] (Bld) [#/Vol] 0.11 10*3/uL [facility] Eosinophils/100 WBC (Bld) 0.7 % [facility] Erythrocyte distribution width (RBC) [Entitic vol] 13.9 % 11.6 - 14.8 % [facility] Hematocrit (Bld) [Volume fraction] 37.5 % Low 41 - 53 % [facility] Hemoglobin (Bld) [Mass/Vol] 12.5 g/dL Low 13.5 - 17.5 g/dL [facility] Immature granulocytes (Bld) [#/Vol] 0.16 10*3/uL [facility] Immature granulocytes/100 WBC (Bld) 1.00 % [facility] Comment on above: The IG parameter is the percentage of metamyelocytes, myelocytes, and promyelocytes. Interpretation and review of laboratory results Abnormal [facility] Lymphocytes (Bld) [#/Vol] 1.58 10*3/uL [facility] Lymphocytes/100 WBC (Bld) 9.7 % [facility] MCH (RBC) [Entitic mass] 28.0 pg 26 - 34 pg [facility] MCHC (RBC) [Mass/Vol] 33.3 g/dL 31 - 3 7 g/dL [facility] MCV (RBC) [Entitic vol] 84.1 fL 80 - 100 fL [facility] Monocytes (Bld) [#/Vol] 1.47 10*3/uL High [facility] Monocytes/100 WBC (Bld) 9.1 % [facility] Neutrophils (Bld) [#/Vol] 12.85 10*3/uL High [facility] Neutrophils/100 WBC (Bld) 79.2 % [facility] Nucleated RBC (Bld) [#/Vol] 0.00 10*3/uL [facility] Nucleated RBC/100 WBC (Bld) [Ratio] 0.0 % [facility] Platelet mean volume (Bld) [Entitic vol] 10.1 fL 9 - 15.5 fL [facility] Platelets (Bld) [#/Vol] 227 10*3/uL [facility] RBC (Bld) [#/Vol] 4.46 10*6/uL Low [facility] WBC (Bld) [#/Vol] 16.22 10*3/uL [facility] Basophils (Bld) [#/Vol] 0.07 10*3/uL [facility] Basophils/100 WBC (Bld) 0.5 % [facility] Eosinophils (Bld) [#/Vol] 0.61 10*3/uL High [facility] Eosinophils/100 WBC (Bld) 4.0 % [facility] Erythrocyte distribution width (RBC) [Entitic vol] 13.8 % 11.6 - 14.8 % [facility] Hematocrit (Bld) [Volume fraction] 36.5 % Low 41 - 53 % [facility] Hemoglobin (Bld) [Mass/Vol] 12.2 g/dL Low 13.5 - 17.5 g/dL [facility] Immature granulocytes (Bld) [#/Vol] 0.22 10*3/uL [facility] Immature granulocytes/100 WBC (Bld) 1.40 % [facility] Comment on above: The IG parameter is the percentage of metamyelocytes, myelocytes, and promyelocytes. Interpretation and review of laboratory results Abnormal [facility] Lymphocytes (Bld) [#/Vol] 2.53 10*3/uL [facility] Lymphocytes/100 WBC (Bld) 16.6 % [facility] MCH (RBC) [Entitic mass] 27.9 pg 26 - 34 pg [facility] MCHC (RBC) [Mass/Vol] 33.4 g/dL 31 - 3 7 g/dL [facility] MCV (RBC) [Entitic vol] 83.3 fL 80 - 100 fL [facility] Monocytes (Bld) [#/Vol] 1.19 10*3/uL High [facility] Monocytes/100 WBC (Bld) 7.8 % [facility] Neutrophils (Bld) [#/Vol] 10.66 10*3/uL High [facility] Neutrophils/100 WBC (Bld) 69.7 % [facility] Nucleated RBC (Bld) [#/Vol] 0.00 10*3/uL [facility] Nucleated RBC/100 WBC (Bld) [Ratio] 0.0 % [facility] Platelet mean volume (Bld) [Entitic vol] 10.1 fL 9 - 15.5 fL [facility] Platelets (Bld) [#/Vol] 201 10*3/uL [facility] RBC (Bld) [#/Vol] 4.38 10*6/uL Low [facility] WBC (Bld) [#/Vol] 15.28 10*3/uL [facility] Basophils (Bld) [#/Vol] 0.06 10*3/uL [facility] Basophils/100 WBC (Bld) 0.5 % [facility] Eosinophils (Bld) [#/Vol] 0.74 10*3/uL High [facility] Eosinophils/100 WBC (Bld) 6.8 % [facility] Erythrocyte distribution width (RBC) [Entitic vol] 13.8 % 11.6 - 14.8 % [facility] Hematocrit (Bld) [Volume fraction] 42.3 % 41 - 53 % [facility] Hemoglobin (Bld) [Mass/Vol] 14.0 g/dL 13.5 - 17.5 g/dL [facility] Immature granulocytes (Bld) [#/Vol] 0.12 10*3/uL [facility] Immature granulocytes/100 WBC (Bld) 1.10 % [facility] Comment on above: The IG parameter is the percentage of metamyelocytes, myelocytes, and promyelocytes. Interpretation and review of laboratory results Abnormal [facility] Lymphocytes (Bld) [#/Vol] 3.01 10*3/uL [facility] Lymphocytes/100 WBC (Bld) 27.6 % [facility] MCH (RBC) [Entitic mass] 27.7 pg 26 - 34 pg [facility] MCHC (RBC) [Mass/Vol] 33.1 g/dL 31 - 3 7 g/dL [facility] MCV (RBC) [Entitic vol] 83.6 fL 80 - 100 fL [facility] Monocytes (Bld) [#/Vol] 0.95 10*3/uL High [facility] Monocytes/100 WBC (Bld) 8.7 % [facility] Neutrophils (Bld) [#/Vol] 6.04 10*3/uL [facility] Neutrophils/100 WBC (Bld) 55.3 % [facility] Nucleated RBC (Bld) [#/Vol] 0.00 10*3/uL [facility] Nucleated RBC/100 WBC (Bld) [Ratio] 0.0 % [facility] Platelet mean volume (Bld) [Entitic vol] 10.1 fL 9 - 15.5 fL [facility] Platelets (Bld) [#/Vol] 230 10*3/uL [facility] RBC (Bld) [#/Vol] 5.06 10*6/uL [facility] WBC (Bld) [#/Vol] 10.92 10*3/uL [facility] Calcium, Ionizedon 9 Calcium.ionized [Mass/Vol] 4.6 mg/dL 4.5 - 5.3 mg/dL [facility] Interpretation and review of laboratory results Normal [facility] Calcium.ionized [Mass/Vol] 4.5 mg/dL 4.5 - 5.3 mg/dL [facility] Interpretation and review of laboratory results Normal [facility] Fibrinogenon 01-24-2019 Fibrinogen Coag (PPP) [Mass/Vol] 309 mg/dL 224 - 483 mg/dL [facility] Fibrinogen Coag (PPP) [Mass/Vol] 316 mg/dL 224 - 483 mg/dL [facility] Hematologyon 01-24-2019 pH (Bld) 7.44 [pH] [facility] ABO and Rh group Nom (Bld) O Neg [facility] ABO and Rh group Nom (Bld) 9500 [facility] Magnesium Levelon 01-24-2019 Interpretation and review of laboratory results Normal [facility] Magnesium [Mass/Vol] 2.0 mg/dL 1.6 - 2 .4 mg/dL [facility] Interpretation and review of laboratory results Normal [facility] Magnesium [Mass/Vol] 2.0 mg/dL 1.6 - 2 .4 mg/dL [facility] Metabolic Panelon 01-24-2019 Potassium [Moles/Vol] 3.8 mmol/L 3.5 - 5.1 mmol/L [facility] Otheron 01-24-2019 Interpretation and review of laboratory results Abnormal [facility] Interpretation and review of laboratory results Normal [facility] Interpretation and review of laboratory results Normal [facility] Interpretation and review of laboratory results Abnormal [facility] SaO2% (BldA) [Mass fraction] 100.0 % High 92 - 99 % [facility] Cross Match Compatible [facility] Product Code [id number] [facility] Product Code [id number] [facility] Product ID Red Blood Cells [facility] Status Info Released [facility] POC ABG SURG - RALSon 2018 Base Excess, Arterial 4 High [facility] Base Excess, Arterial 1 [facility] Base Excess, Arterial 3 High [facility] Calcium.ionized (Bld) [Mass/Vol] 4.7 mg/dL 4.5 - 5.3 mg/dL [facility] Calcium.ionized (Bld) [Mass/Vol] 4.9 mg/dL 4.5 - 5.3 mg/dL [facility] Calcium.ionized (Bld) [Mass/Vol] 4.6 mg/dL 4.5 - 5.3 mg/dL [facility] CO2 (Bld) [Partial pressure] 38.1 mm[Hg] [facility] CO2 (Bld) [Partial pressure] 53.2 mm[Hg] High [facility] CO2 (Bld) [Partial pressure] 40.5 mm[Hg] [facility] Glucose [Mass/Vol] 168 mg/dL High 65 - 99 mg/dL [facility] Glucose [Mass/Vol] 131 mg/dL High 65 - 99 mg/dL [facility] Glucose [Mass/Vol] 169 mg/dL High 65 - 99 mg/dL [facility] HCO3 (Bld) [Moles/Vol] 25.7 mmol/L 22 - 26 mmol/L [facility] HCO3 (Bld) [Moles/Vol] 27.3 mmol/L High 22 - 26 mmol/L [facility] HCO3 (Bld) [Moles/Vol] 30.4 mmol/L High 22 - 26 mmol/L [facility] Hematocrit (Bld) [Volume fraction] 39 % Low 41 - 53 % [facility] Hematocrit (Bld) [Volume fraction] 37 % Low 41 - 53 % [facility] Hematocrit (Bld) [Volume fraction] 40 % Low 41 - 53 % [facility] Hemoglobin (Bld) [Mass/Vol] 13.6 g/dL 13.5 - 17.5 g/dL [facility] Hemoglobin (Bld) [Mass/Vol] 12.6 g/dL Low 13.5 - 17.5 g/dL [facility] Hemoglobin (Bld) [Mass/Vol] 13.3 g/dL Low 13.5 - 17.5 g/dL [facility] Oxygen (Bld) [Partial pressure] 364 mm[Hg] High [facility] Oxygen (Bld) [Partial pressure] 432 mm[Hg] High [facility] Oxygen (Bld) [Partial pressure] 344 mm[Hg] High [facility] pH (Bld) 7.37 [pH] [facility] Sodium [Moles/Vol] 132 mmol/L Low 135 - 145 mmol/L [facility] Sodium [Moles/Vol] 134 mmol/L Low 135 - 145 mmol/L [facility] Sodium [Moles/Vol] 131 mmol/L Low 135 - 145 mmol/L [facility] POC ARTERIAL BLOOD GAS PANEL Count includes the [facility] 01-24-2019 Alveolar-arterial oxygen Partial pressure difference 89.1 mm Hg [facility] Base excess Calc (Bld) [Moles/Vol] 1.1 mmol/L [facility] Breath rate setting Ventilator synchronized intermittent mandatory 0 [facility] h CO2 (Bld) [Partial pressure] 45.4 mm[Hg] High [facility] HCO3 (Bld) [Moles/Vol] 26.7 mmol/L High 22 - 26 mmol/L [facility] Hematocrit (BldA) [Volume fraction] 39.6 % Low 41 - 53 % [facility] Hemoglobin (Bld) [Mass/Vol] 12.9 g/dL Low 13.5 - 18 g/dL [facility] Inhaled oxygen concentration 40 % [facility] Interpretation and review of laboratory results Abnormal [facility] Oxygen (Bld) [Partial pressure] 132 mm[Hg] High [facility] PEEP Respiratory system 5 [facility] pH (Bld) 7.38 [pH] [facility] SaO2% (BldA) [Mass fraction] 98.7 % 92 - 99 % [facility] Tidal volume setting Ventilator 0 [facility] Alveolar-arterial oxygen Partial pressure difference 127.3 mm Hg [facility] Base excess Calc (Bld) [Moles/Vol] 1.0 mmol/L [facility] Breath rate setting Ventilator synchronized intermittent mandatory 0 [facility] CO2 (Bld) [Partial pressure] 41.7 mm[Hg] [facility] HCO3 (Bld) [Moles/Vol] 26.0 mmol/L 22 - 26 mmol/L [facility] Hematocrit (BldA) [Volume fraction] 38.5 % Low 41 - 53 % [facility] Hemoglobin (Bld) [Mass/Vol] 12.5 g/dL Low 13.5 - 18 g/dL [facility] Inhaled oxygen concentration 40 % [facility] Interpretation and review of laboratory results Abnormal [facility] Oxygen (Bld) [Partial pressure] 98 mm[Hg] [facility] PEEP Respiratory system 5 [facility] pH (Bld) 7.40 [pH] [facility] SaO2% (BldA) [Mass fraction] 97.7 % 92 - 99 % [facility] Tidal volume setting Ventilator 800 [facility] Alveolar-arterial oxygen Partial pressure difference 307.3 mm Hg [facility] Base excess Calc (Bld) [Moles/Vol] 2.0 mmol/L [facility] Breath rate setting Ventilator synchronized intermittent mandatory 0 [facility] CO2 (Bld) [Partial pressure] 39.5 mm[Hg] [facility] HCO3 (Bld) [Moles/Vol] 26.4 mmol/L High 22 - 26 mmol/L [facility] Hematocrit (BldA) [Volume fraction] 39.5 % Low 41 - 53 % [facility] Hemoglobin (Bld) [Mass/Vol] 12.9 g/dL Low 13.5 - 18 g/dL [facility] Inhaled oxygen concentration 70 % [facility] Interpretation and review of laboratory results Abnormal [facility] Oxygen (Bld) [Partial pressure] 126 mm[Hg] High [facility] PEEP Respiratory system 5 [facility] pH (Bld) 7.43 [pH] [facility] SaO2% (BldA) [Mass fraction] 98.7 % 92 - 99 % [facility] Specimen source Nom (Unsp spec) Not specified [facility] Tidal volume setting Ventilator 800 [facility] POC Glucoseon 01-24-2019 Glucose [Mass/Vol] 120 mg/dL High 65 - 99 mg/dL [facility] Interpretation and review of laboratory results Abnormal [facility] Glucose [Mass/Vol] 132 mg/dL High 65 - 99 mg/dL [facility] Glucose [Mass/Vol] 119 mg/dL High 65 - 99 mg/dL [facility] Glucose [Mass/Vol] 122 mg/dL High 65 - 99 mg/dL [facility] Interpretation and review of laboratory results Abnormal [facility] Glucose [Mass/Vol] 134 mg/dL High 65 - 99 mg/dL [facility] Interpretation and review of laboratory results Abnormal [facility] Glucose [Mass/Vol] 131 mg/dL High 65 - 99 mg/dL [facility] Interpretation and review of laboratory results Abnormal [facility] Glucose [Mass/Vol] 114 mg/dL High 65 - 99 mg/dL [facility] Glucose [Mass/Vol] 121 mg/dL High 65 - 99 mg/dL [facility] Interpretation and review of laboratory results Abnormal [facility] Glucose [Mass/Vol] 137 mg/dL High 65 - 99 mg/dL [facility] Interpretation and review of laboratory results Abnormal [facility] Glucose [Mass/Vol] 149 mg/dL High 65 - 99 mg/dL [facility] Interpretation and review of laboratory results Abnormal [facility] Glucose [Mass/Vol] 169 mg/dL High 65 - 99 mg/dL [facility] Interpretation and review of laboratory results Abnormal [facility] Glucose [Mass/Vol] 108 mg/dL High 65 - 99 mg/dL [facility] Interpretation and review of laboratory results Abnormal [facility] PREPARE RBCon 01-24-2019 Product Code [id number] [facility] Unit Number [id number] [facility] Unit Number [id number] [facility] Unit Number [id number] [facility] Unit Number [id number] [facility] Unit Number [id number] [facility] Unit Number [id number] [facility] PT/INRon 01-24-2019 INR Coag (PPP) [Relative time] 1.0 {INR} [facility] Interpretation and review of laboratory results Normal [facility] PT Coag (PPP) [Time] 13.3 s [facility] During the induction phase of oral anticoagulation, the INR may not reflect the anticoagulation status of the patient. Therapeutic ranges for INR's are: Most clinical situations: INR 2.0-3.0 Mechanical Prosthetic Valve: INR 2.5-3.5 Critical: INR >5.0 [facility] INR Coag (PPP) [Relative time] 1.1 {INR} [facility] PT Coag (PPP) [Time] 13.5 s [facility] During the induction phase of oral anticoagulation, the INR may not reflect the anticoagulation status of the patient. Therapeutic ranges for INR's are: Most clinical situations: INR 2.0-3.0 Mechanical Prosthetic Valve: INR 2.5-3.5 Critical: INR >5.0 [facility] INR Coag (PPP) [Relative time] 1.1 {INR} [facility] PT Coag (PPP) [Time] 13.4 s [facility] During the induction phase of oral anticoagulation, the INR may not reflect the anticoagulation status of the patient. Therapeutic ranges for INR's are: Most clinical situations: INR 2.0-3.0 Mechanical Prosthetic Valve: INR 2.5-3.5 Critical: INR >5.0 [facility] Type and Screenon 01-24-2019 ABO and Rh group Nom (Bld) O Negative [facility] Blood group antibody screen Ql Negative [facility] Specimen Expires 01/27/2019 23:59 EST [facility] XR Chest 1 Viewon 01-24-2019 1. No acute cardiopulmonary disease. 2. Normal heart size with evidence of prior coronary arterial stenting. 3. No acute osseous abnormality. [employer] Workstation ID: [id number] [facility] Interface, Rad In Fu ji Speechq - 01/24/2019 5:04 PM EST EXAMINATION: 1 VIEW XR CHEST PA/AP, 01/24/2019 COMPARISON: Chest, 01/21/2019. HISTORY: Dx: R07.89 (Chest pain, atypical) Injury/Trauma or Illness?:Illness/Other How long have you had these symptoms (acute/chronic)?:Unknown pre-op IMPRESSION: 1. No acute cardiopulmonary disease. 2. Normal heart size with evidence of prior coronary arterial stenting. 3. No acute osseous abnormality. [employer] Workstation ID: [id number] [facility] EXAMINATION: 1 VIEW XR CHEST PA/AP, 01/24/2019 COMPARISON: Chest, 01/21/2019. HISTORY: Dx: R07.89 (Chest pain, atypical) Injury/Trauma or Illness?:Illness/Other How long have you had these symptoms (acute/chronic)?:Unknown pre-op [facility] 1. There is a right mainstem intubation that has been appropriately retracted on follow-up chest radiograph performed just following this exam. 2. Nasogastric tube is seen descending into the stomach although the tip is not included for visualization. Central mediastinal or left chest tube is in place. 3. Right internal jugular [place] line in place with tip in the main pulmonary artery. 4. Lung volumes are slightly diminished with some crowding of bronchopulmonary vasculature. Some discoid atelectasis in the left upper lobe suspected. 5. Stable heart size with evidence of coronary arterial stenting in CABG. [employer] Workstation ID: [id number] [facility] [facility] In Luis Fernando yi [...] is in place. 3. Right internal jugular [place] line in place with tip in the main pulmonary artery. 4. Lung volumes are slightly diminished with some crowding of bronchopulmonary vasculature. Some discoid atelectasis in the left upper lobe suspected. 5. Stable heart size with evidence of coronary arterial stenting in CABG. iovoxT/lab Workstation ID: [id number] [facility] EXAMINATION: 1-VIEW XR CHEST PA/AP 01/24/2019 AT 10:13 AM COMPARISON: Chest radiograph performed later in the day at 10:20 a.m. HISTORY: Dx: R07.89 (Chest pain, atypical). Injury/Trauma or Illness?: Illness/Other. How long have you had these symptoms (acute/chronic)?: Unknown. ET tube placement. [facility] EXAMINATION: 1 VIEW XR CHEST PA/AP, 01/24/2019 AT 10:20 A.M. COMPARISON: Chest radiograph performed earlier the same day at 10:13 a.m. HISTORY: Dx: R07.89 (Chest pain, atypical) Injury/Trauma or Illness?:Illness/Other How long have you had these symptoms (acute/chronic)?:Unknown reposition OG [facility] 1. Endotracheal tube has been retracted and is probably located at the level of thoracic inlet. 2. Orogastric tube is again seen extending into the stomach although the tip is not included for visualization. Central mediastinal or left chest tube and right internal jugular [place] line remain in stable position. 3. Lung volumes is slightly diminished with some discoid atelectasis slightly progressed in the left lung apex since the prior exam. No pneumothorax. 4. Stable heart size with evidence of coronary arterial stenting and new CABG. GJT/trn Workstation ID: [id number] [facility] Interface, Rad In Luis Fernando yi [...] left chest tube and right internal jugular [place] line remain in stable position. 3. Lung volumes is slightly diminished with some discoid atelectasis slightly progressed in the left lung apex since the prior exam. No pneumothorax. 4. Stable heart size with evidence of coronary arterial stenting and new CABG. iovoxT/trn Workstation ID: [id number] [facility] APTTon 01-23-2019 aPTT Coag (Bld) [Time] 79 s [facility] Interpretation and review of laboratory results Abnormal [facility] Therapeutic range fo r APTT's is 68 - 104 seconds [facility] Basic Metabolic Panelon 01-12 Anion gap [Moles/Vol] 11 mmol/L 10 - 2 0 mmol/L [facility] Calcium [Mass/Vol] 9.3 mg/dL 8.4 - 10. 2 mg/dL [facility] Chloride [Moles/Vol] 99 mmol/L 98 - 10 8 mmol/L [facility] Creatinine [Mass/Vol] 1.22 mg/dL 0.5 - 1.3 mg/dL [facility] GFR/1.73 sq M.predicted CKD-EPI (S/P/Bld) [Vol rate/Area] 70 >=60 mL/min/1.7 3 m2 [facility] Glucose [Mass/Vol] 124 mg/dL High 65 - 99 mg/dL [facility] HCO3 [Moles/Vol] 27 mmol/L 21 - 32 mmol/L [facility] Interpretation and review of laboratory results Abnormal [facility] Potassium [Moles/Vol] 4.0 mmol/L 3.5 - 5.1 mmol/L [facility] Sodium [Moles/Vol] 133 mmol/L Low 135 - 145 mmol/L [facility] Urea nitrogen [Mass/Vol] 25 mg/dL 8 - 25 mg/dL [facility] Urea nitrogen/Creatinine [Mass ratio] 20.5 mg/mg High [facility] The eGFR should be u sed for monitoring renal function only and not for medication dosing. [facility] CBC WITH AUTO DIFFERENTIALon 01-23-2019 Basophils (Bld) [#/Vol] 0.08 10*3/uL [facility] Basophils/100 WBC (Bld) 0.7 % [facility] Eosinophils (Bld) [#/Vol] 0.80 10*3/uL [facility] Eosinophils/100 WBC (Bld) 6.6 % [facility] Erythrocyte distribution width (RBC) [Entitic vol] 14.1 % 11.6 - 14.8 % [facility] Hematocrit (Bld) [Volume fraction] 42.4 % 41 - 53 % [facility] Hemoglobin (Bld) [Mass/Vol] 14.3 g/dL 13.5 - 17.5 g/dL [facility] Immature granulocytes (Bld) [#/Vol] 0.16 10*3/uL [facility] Immature granulocytes/100 WBC (Bld) 1.30 % [facility] Comment on above: The IG parameter is the percentage of metamyelocytes, myelocytes, and promyelocytes. Interpretation and review of laboratory results Abnormal [facility] Lymphocytes (Bld) [#/Vol] 3.27 10*3/uL [facility] Lymphocytes/100 WBC (Bld) 26.9 % [facility] MCH (RBC) [Entitic mass] 28.4 pg 26 - 34 pg [facility] MCHC (RBC) [Mass/Vol] 33.7 g/dL 31 - 3 7 g/dL [facility] MCV (RBC) [Entitic vol] 84.1 fL 80 - 100 fL [facility] Monocytes (Bld) [#/Vol] 1.03 10*3/uL [facility] Monocytes/100 WBC (Bld) 8.5 % [facility] Neutrophils (Bld) [#/Vol] 6.83 10*3/uL [facility] Neutrophils/100 WBC (Bld) 56.0 % [facility] Nucleated RBC (Bld) [#/Vol] 0.00 10*3/uL [facility] Nucleated RBC/100 WBC (Bld) [Ratio] 0.0 % [facility] Platelet mean volume (Bld) [Entitic vol] 10.3 fL 9 - 15.5 fL [facility] Platelets (Bld) [#/Vol] 239 10*3/uL [facility] RBC (Bld) [#/Vol] 5.04 10*6/uL [facility] WBC (Bld) [#/Vol] 12.17 10*3/uL [facility] Complete PFT Dr. Javi high 01-23-2019 DLCO %Pre Predicted 71 % [facility] DLCO Pre 21.5 mL/mmHg/mi n [facility] DLCO Predicted 30.1 mL/mmHg/mi n [facility] DLCO/VA %Pre Predicted 103 % [facility] DLCO/VA Pre 4.09 mL/mmHg/mi n/L [facility] DLCO/VA Predicted 3.97 mL/mmHg/mi n/L [facility] ERV Pre 0.71 Liters [facility] FEV1 %Change 3 % [facility] FEV1 %Post Predicted 81 % [facility] FEV1 %Pre Predicted 79 % [facility] FEV1 Post 2.88 Liters [facility] FEV1 Pre 2.80 Liters [facility] FEV1 Predicted 3.54 Liters [facility] FEV1/FVC %Change 3 % [facility] FEV1/FVC %Post Predicted 90 % [facility] FEV1/FVC %Pre Predicted 87 % [facility] FEV[facility]/FVC Post 70 % [facility] FEV1/FVC Pre 68 % [facility] FEV1/FVC Predicted 78 % [facility] FRC PL %Pre Predicted 125 % [facility] FRC PL Pre 3.11 Liters [facility] FRC PL Predicted 2.49 Liters [facility] FVC %Change 0 % [facility] FVC %Post Predicted 91 % [facility] FVC %Pre Predicted 91 % [facility] FVC Post 4.11 Liters [facility] FVC Pre 4.10 Liters [facility] FVC Predicted 4.50 Liters [facility] RV %Pre Predicted 128 % [facility] lt RV Pre 2.41 Liters [facility] RV Predicted 1.88 Liters [facility] TLC %Pre Predicted 112 % [facility] TLC Pre 6.58 Liters [facility] TLC Predicted 5.90 Liters [facility] VC %Pre Predicted 93 % [facility] VC Pre 4.17 Liters [facility] VC Predicted 4.50 Liters [facility] INTERPRETATION: ATS Guidelines met. Good patient effort. Spirometry shows borderline/very mild obstruction that appears fixed. Lung volumes are normal. Diffusion capacity uncorrected for hemoglobin is mildly reduced, but does correct when alveolar volumes accounted for. Early/very mild COPD. [facility] POC Glucoseon 01-23-2019 Glucose [Mass/Vol] 163 mg/dL High 65 - 99 mg/dL [facility] Interpretation and review of laboratory results Abnormal [facility] Glucose [Mass/Vol] 110 mg/dL High 65 - 99 mg/dL [facility] Interpretation and review of laboratory results Abnormal [facility] Glucose [Mass/Vol] 106 mg/dL High 65 - 99 mg/dL [facility] Interpretation and review of laboratory results Abnormal [facility] Upper Respiratory Aerobic Cu ltureon 01-23-2019 Bacteria identified Aer cx Nom (Nose) Light Growth Staphylococcus aureus Abnormal [facility] Comment on above: This Staphylococcus aureus is Methicillin SUSCEPTIBLE by PBP2a testing. Beta-lactams like Cefazolin and Nafcillin are superior to Vancomycin for treating mSsa. Interpretation and review of laboratory results Abnormal [facility] Urine Aerobic Cultureon 01-12 Bacteria identified Aer cx Nom (Unsp spec) 10,000-49,000 CFU/mL Staphylococcus aureus Abnormal [facility] Interpretation and review of laboratory results Abnormal [facility] APTTon 01-22-2019 aPTT Coag (Bld) [Time] 70 s [facility] Therapeutic range fo r APTT's is 68 - 104 seconds [facility] aPTT Coag (Bld) [Time] 58 s [facility] Interpretation and review of laboratory results Abnormal [facility] Therapeutic range fo r APTT's is 68 - 104 seconds [facility] aPTT Coag (Bld) [Time] 44 s [facility] Interpretation and review of laboratory results Abnormal [facility] Therapeutic range fo r APTT's is 68 - 104 seconds [facility] Basic Metabolic Panelon 01-12 Anion gap [Moles/Vol] 12 mmol/L 10 - 2 0 mmol/L [facility] Calcium [Mass/Vol] 8.9 mg/dL 8.4 - 10. 2 mg/dL [facility] Chloride [Moles/Vol] 102 mmol/L 98 - 10 8 mmol/L [facility] Creatinine [Mass/Vol] 1.23 mg/dL 0.5 - 1.3 mg/dL [facility] GFR/1.73 sq M.predicted CKD-EPI (S/P/Bld) [Vol rate/Area] 69 >=60 mL/min/1.7 3 m2 [facility] Glucose [Mass/Vol] 125 mg/dL High 65 - 99 mg/dL [facility] HCO3 [Moles/Vol] 25 mmol/L 21 - 32 mmol/L [facility] Interpretation and review of laboratory results Abnormal [facility] Potassium [Moles/Vol] 3.9 mmol/L 3.5 - 5.1 mmol/L [facility] Sodium [Moles/Vol] 135 mmol/L 135 - 145 mmol/L [facility] Urea nitrogen [Mass/Vol] 26 mg/dL High 8 - 25 mg/dL [facility] Urea nitrogen/Creatinine [Mass ratio] 21.1 mg/mg High [facility] The eGFR should be u sed for monitoring renal function only and not for medication dosing. [facility] CBC WITH AUTO DIFFERENTIALon 01-22-2019 Basophils (Bld) [#/Vol] 0.08 10*3/uL [facility] Basophils/100 WBC (Bld) 0.7 % [facility] Eosinophils (Bld) [#/Vol] 0.74 10*3/uL [facility] Eosinophils/100 WBC (Bld) 6.5 % [facility] Erythrocyte distribution width (RBC) [Entitic vol] 14.0 % 11.6 - 14.8 % [facility] Hematocrit (Bld) [Volume fraction] 41.8 % 41 - 53 % [facility] Hemoglobin (Bld) [Mass/Vol] 13.5 g/dL 13.5 - 17.5 g/dL [facility] Immature granulocytes (Bld) [#/Vol] 0.15 10*3/uL [facility] Immature granulocytes/100 WBC (Bld) 1.30 % [facility] Comment on above: The IG parameter is the percentage of metamyelocytes, myelocytes, and promyelocytes. Interpretation and review of laboratory results Abnormal [facility] Lymphocytes (Bld) [#/Vol] 3.52 10*3/uL [facility] Lymphocytes/100 WBC (Bld) 30.9 % [facility] MCH (RBC) [Entitic mass] 27.4 pg 26 - 34 pg [facility] MCHC (RBC) [Mass/Vol] 32.3 g/dL 31 - 3 7 g/dL [facility] MCV (RBC) [Entitic vol] 85.0 fL 80 - 100 fL [facility] Monocytes (Bld) [#/Vol] 0.93 10*3/uL [facility] Monocytes/100 WBC (Bld) 8.2 % [facility] Neutrophils (Bld) [#/Vol] 5.96 10*3/uL [facility] Neutrophils/100 WBC (Bld) 52.4 % [facility] Nucleated RBC (Bld) [#/Vol] 0.00 10*3/uL [facility] Nucleated RBC/100 WBC (Bld) [Ratio] 0.0 % [facility] Platelet mean volume (Bld) [Entitic vol] 10.0 fL 9 - 15.5 fL [facility] Platelets (Bld) [#/Vol] 237 10*3/uL [facility] RBC (Bld) [#/Vol] 4.92 10*6/uL [facility] WBC (Bld) [#/Vol] 11.38 10*3/uL [facility] DRUGS OF ABUSE SCREEN, URINE on 01-22-2019 Amphetamines Ql (U) None Detected None Detected [facility] Comment on above: Urine Amphetamine Cu toff: < 1000 ng/mL = None Detected Barbiturates Screen Ql (U) None Detected None Detected [facility] Comment on above: Urine Barbiturates C utoff: < 200 ng/mL = None Detected Benzodiazepines Ql (U) None Detected None Detected [facility] Comment on above: Urine Benzodiazepine Cutoff: < 200 ng/mL = None Detected Cannabinoids Screen Ql (U) None Detected None Detected [facility] Comment on above: Urine Cannabinoids C utoff: < 50 ng/mL = None Detected Cocaine Ql (U) None Detected None Detected [facility] Comment on above: Urine Cocaine Cutoff : < 300 ng/mL = None Detected Interpretation and review of laboratory results Normal [facility] Methadone Screen Ql (U) None Detected Non e Detected [facility] Comment on above: Urine Methadone Cuto ff: < 300 ng/mL = None Detected Opiates Screen Ql (U) None Detected None Detected [facility] Comment on above: Urine Opiates Cutoff : < 300 ng/mL = None Detected Oxycodone Ql (U) None Detected None Detected [facility] Comment on above: Urine Oxycodone Cuto ff: < 100 ng/mL = None Detected Screen results shoul d be used for treatment purposes only. [facility] Otheron 01-22-2019 Interpretation and review of laboratory results Abnormal [facility] POC Glucoseon 01-22-2019 Glucose [Mass/Vol] 142 mg/dL High 65 - 99 mg/dL [facility] Interpretation and review of laboratory results Abnormal [facility] Glucose [Mass/Vol] 107 mg/dL High 65 - 99 mg/dL [facility] Glucose [Mass/Vol] 116 mg/dL High 65 - 99 mg/dL [facility] Interpretation and review of laboratory results Abnormal [facility] URINALYSISon 01-22-2019 Bacteria Auto Ql (U) None Seen None Se en /hpf [facility] Bilirubin Ql (U) Negative Negative [facility] th Clarity Refractometry automated (U) Clear Clear [facility] Color (U) Colorless Colorless, Yellow [facility] Glucose Auto test strip (U) [Mass/Vol] Negative Negative mg/dL [facility] Hemoglobin Auto test strip Ql (U) Negative Negative [facility] Interpretation and review of laboratory results Normal [facility] Ketones (U) [Mass/Vol] Negative Negat bryan mg/dL [facility] Leukocyte esterase Auto test strip Ql (U) Negative Negative [facility] Nitrite Auto test strip Ql (U) Negative Negative [facility] pH (U) 6.0 [pH] [facility] Protein (U) [Mass/Vol] Negative Negat bryan mg/dL [facility] RBC Auto (Urine sed) [#/Area] <1 [facility] Specific gravity (U) [Rel density] 1.008 [facility] Urobilinogen (U) [Mass/Vol] <2.0 <2.0 mg/dL [facility] WBC Auto (Urine sed) [#/Area] <1 [facility] Microscopic examinat ion is performed on all urinalysis samples and only positive findings are reported. The test for blood on the chemical analytic portion of urinalysis may also be positive due to hemoglobinuria and myoglobinuria and if red blood cells are present they are quantified by microscopic examination. [facility] APTTon 01-21-2019 aPTT Coag (Bld) [Time] 30 s [facility] Interpretation and review of laboratory results Normal [facility] Therapeutic range fo r APTT's is 68 - 104 seconds [facility] Basic Metabolic Panelon 01-12 Anion gap [Moles/Vol] 11 mmol/L 10 - 2 0 mmol/L [facility] Calcium [Mass/Vol] 9.1 mg/dL 8.4 - 10. 2 mg/dL [facility] Chloride [Moles/Vol] 102 mmol/L 98 - 10 8 mmol/L [facility] Creatinine [Mass/Vol] 1.11 mg/dL 0.5 - 1.3 mg/dL [facility] GFR/1.73 sq M.predicted CKD-EPI (S/P/Bld) [Vol rate/Area] 79 >=60 mL/min/1.7 3 m2 [facility] Glucose [Mass/Vol] 116 mg/dL High 65 - 99 mg/dL [facility] HCO3 [Moles/Vol] 26 mmol/L 21 - 32 mmol/L [facility] Interpretation and review of laboratory results Abnormal [facility] Potassium [Moles/Vol] 4.0 mmol/L 3.5 - 5.1 mmol/L [facility] Sodium [Moles/Vol] 135 mmol/L 135 - 145 mmol/L [facility] Urea nitrogen [Mass/Vol] 22 mg/dL 8 - 25 mg/dL [facility] Urea nitrogen/Creatinine [Mass ratio] 19.8 mg/mg [facility] The eGFR should be u sed for monitoring renal function only and not for medication dosing. [facility] CBC WITH AUTO DIFFERENTIALon 01-21-2019 Basophils (Bld) [#/Vol] 0.07 10*3/uL [facility] Basophils/100 WBC (Bld) 0.6 % [facility] Eosinophils (Bld) [#/Vol] 0.69 10*3/uL [facility] Eosinophils/100 WBC (Bld) 6.1 % [facility] Erythrocyte distribution width (RBC) [Entitic vol] 14.0 % 11.6 - 14.8 % [facility] Hematocrit (Bld) [Volume fraction] 43.6 % 41 - 53 % [facility] Hemoglobin (Bld) [Mass/Vol] 14.2 g/dL 13.5 - 17.5 g/dL [facility] Immature granulocytes (Bld) [#/Vol] 0.14 10*3/uL [facility] Immature granulocytes/100 WBC (Bld) 1.20 % [facility] Comment on above: The IG parameter is the percentage of metamyelocytes, myelocytes, and promyelocytes. Interpretation and review of laboratory results Abnormal [facility] Lymphocytes (Bld) [#/Vol] 2.23 10*3/uL [facility] Lymphocytes/100 WBC (Bld) 19.8 % [facility] MCH (RBC) [Entitic mass] 27.6 pg 26 - 34 pg [facility] MCHC (RBC) [Mass/Vol] 32.6 g/dL 31 - 3 7 g/dL [facility] MCV (RBC) [Entitic vol] 84.7 fL 80 - 100 fL [facility] Monocytes (Bld) [#/Vol] 0.98 10*3/uL [facility] Monocytes/100 WBC (Bld) 8.7 % [facility] Neutrophils (Bld) [#/Vol] 7.17 10*3/uL [facility] Neutrophils/100 WBC (Bld) 63.6 % [facility] Nucleated RBC (Bld) [#/Vol] 0.00 10*3/uL [facility] Nucleated RBC/100 WBC (Bld) [Ratio] 0.0 % [facility] Platelet mean volume (Bld) [Entitic vol] 9.9 fL 9 - 15.5 fL [facility] Platelets (Bld) [#/Vol] 267 10*3/uL [facility] RBC (Bld) [#/Vol] 5.15 10*6/uL [facility] WBC (Bld) [#/Vol] 11.28 10*3/uL [facility] ECHOCARDIOGRAM 2D COMPLETEon 01-21-[address] [address] [place] [address] ----- ECHOCARDIOGRAPHY REPORT - [facility] ----- Name: FERNANDO Priyanka HELTON Age: 48 years Date: 01/21/2019 [facility] #: [id number] : 1970 Room: [facility] Rec #: [id number] Sex: M Tech: Emma Tsai Ordering Physician: [id number] KRISTIN ABRAHAM TITLEY Height: 67.00 Sys BP: 119 in cc: , Weight: 257.00 Mira BP: 78 Reading Physician: [id number] Durán/ Rhythm: Sinus Electronically Signed by: [id number] Durán BSA: 2.25 m on: 01/21/2019 Reason [...] LA Index (BP) 17.6 ml/m TAPSE LAESV RUSH SEATER NOTES: Definity (if used): 3ml Final [facility] Keith Robin In [facility] - 01/21/2019 3:[address] [address] [place] [address] ----- ECHOCARDIOGRAPHY REPORT - [facility] ----- Name: FERNANDO HELTON Age: 48 years Date: 01/21/2019 Hospital #: [id number] : 1970 Room: [facility] Rec #: [id number] Sex: M Tech: Emma Tsai Ordering Physician: [id number] KRISTIN ABRAHAM TITLEY Height: 67.00 Sys BP: 119 in cc: , Weight: 257.00 Mira BP: 78 Reading Physician: [id number] Magda Durán/ Rhythm: Sinus Electronically Signed by: [id number] Magda Durán BSA: 2.25 m on: 01/21/2019 [...] LA Index (BP) 17.6 ml/m TAPSE LAESV [facility] SEATER NOTES: Definity (if used): 3ml Final IMPRESSION: 1. Mildly dilated left ventricle with basal septal wall hypertrophy measuring 1.5 cm in maximal thickness. Mild segmental left ventricular systolic dysfunction with estimated LVEF 45-50%. Wall motion abnormalities as outlined below. [facility] 1. Mildly dilated le ft ventricle with basal septal wall hypertrophy measuring 1.5 cm in maximal thickness. Mild segmental left ventricular systolic dysfunction with estimated LVEF 45-50%. Wall motion abnormalities as outlined below. [facility] POC Glucoseon 01-21-2019 Glucose [Mass/Vol] 147 mg/dL High 65 - 99 mg/dL [facility] Interpretation and review of laboratory results Abnormal [facility] Glucose [Mass/Vol] 176 mg/dL High 65 - 99 mg/dL [facility] Interpretation and review of laboratory results Abnormal [facility] Glucose [Mass/Vol] 119 mg/dL High 65 - 99 mg/dL [facility] Interpretation and review of laboratory results Abnormal [facility] XR CHEST AP/PA AND LATon Interface, [...] No acute cardiopulmonary disease. Workstation ID: [id number] [facility] EXAMINATION: XR CHES T AP/PA AND [...] focal airspace consolidation, or pulmonary vascular congestion. [facility] No acute cardiopulmo nary disease. Workstation ID: [id number] [facility] ABORH VERIFICATIONon 019 ABO and Rh group Nom (Bld) ABO/Rh Verification [facility] ABO and Rh group Nom (Bld) O Negative [facility] Patient's ABO/Rh is verified. [facility] AMYLASEon 01-20-2019 Amylase [Catalytic activity/Vol] 38 U/L 25 - 115 U/L [facility] APTTon 01-20-2019 aPTT Coag (Bld) [Time] 61 s [facility] Interpretation and review of laboratory results Abnormal [facility] Therapeutic range fo r APTT's is 68 - 104 seconds [facility] Basic Metabolic Panelon Anion gap [Moles/Vol] 12 mmol/L 10 - 2 0 mmol/L [facility] Calcium [Mass/Vol] 8.3 mg/dL Low 8.4 - 10. 2 mg/dL [facility] Chloride [Moles/Vol] 106 mmol/L 98 - 10 8 mmol/L [facility] Creatinine [Mass/Vol] 1.17 mg/dL 0.5 - 1.3 mg/dL [facility] GFR/1.73 sq M.predicted CKD-EPI (S/P/Bld) [Vol rate/Area] 74 >=60 mL/min/1.7 3 m2 [facility] Glucose [Mass/Vol] 134 mg/dL High 65 - 99 mg/dL [facility] HCO3 [Moles/Vol] 24 mmol/L 21 - 32 mmol/L [facility] Interpretation and review of laboratory results Abnormal [facility] Potassium [Moles/Vol] 3.9 mmol/L 3.5 - 5.1 mmol/L [facility] Sodium [Moles/Vol] 138 mmol/L 135 - 145 mmol/L [facility] Urea nitrogen [Mass/Vol] 19 mg/dL 8 - 25 mg/dL [facility] Urea nitrogen/Creatinine [Mass ratio] 16.2 mg/mg [facility] The eGFR should be u sed for monitoring renal function only and not for medication dosing. [facility] CARDIAC CATHETERIZATIONon Cardiac Catheterizat ion Operative [...] the chart. Patient was brought to the [facility] and prepped and draped in usual sterile [...] using a modified Seldinger technique. A 5 Indian sheath was placed. JL4 and JR4 catheter [...] None; patient tolerated the procedure well. Disposition: [facility] Condition: stable Electronically Signed by: Carlo Mercedes M.D 01/20/19 9:09 AM [facility] CBC WITH AUTO DIFFERENTIALon 01-20-2019 Basophils (Bld) [#/Vol] 0.08 10*3/uL [facility] Basophils/100 WBC (Bld) 0.6 % [facility] Eosinophils (Bld) [#/Vol] 0.76 10*3/uL High [facility] Eosinophils/100 WBC (Bld) 5.7 % [facility] Erythrocyte distribution width (RBC) [Entitic vol] 14.2 % 11.6 - 14.8 % [facility] Hematocrit (Bld) [Volume fraction] 41.2 % 41 - 53 % [facility] Hemoglobin (Bld) [Mass/Vol] 13.6 g/dL 13.5 - 17.5 g/dL [facility] Immature granulocytes (Bld) [#/Vol] 0.10 10*3/uL [facility] Immature granulocytes/100 WBC (Bld) 0.70 % [facility] Comment on above: The IG parameter is the percentage of metamyelocytes, myelocytes, and promyelocytes. Interpretation and review of laboratory results Abnormal [facility] Lymphocytes (Bld) [#/Vol] 3.59 10*3/uL [facility] Lymphocytes/100 WBC (Bld) 26.7 % [facility] MCH (RBC) [Entitic mass] 28.2 pg 26 - 34 pg [facility] MCHC (RBC) [Mass/Vol] 33.0 g/dL 31 - 3 7 g/dL [facility] MCV (RBC) [Entitic vol] 85.3 fL 80 - 100 fL [facility] Monocytes (Bld) [#/Vol] 1.01 10*3/uL [facility] Monocytes/100 WBC (Bld) 7.5 % [facility] Neutrophils (Bld) [#/Vol] 7.90 10*3/uL High [facility] Neutrophils/100 WBC (Bld) 58.8 % [facility] Nucleated RBC (Bld) [#/Vol] 0.00 10*3/uL [facility] Nucleated RBC/100 WBC (Bld) [Ratio] 0.0 % [facility] Platelet mean volume (Bld) [Entitic vol] 10.1 fL 9 - 15.5 fL [facility] Platelets (Bld) [#/Vol] 259 10*3/uL [facility] RBC (Bld) [#/Vol] 4.83 10*6/uL [facility] ealth WBC (Bld) [#/Vol] 13.44 10*3/uL [facility] EKGon 01-20-2019 Ordered by an unspec ified provider. [facility] Hemoglobin A1con 01-20-2019 Average glucose Estimated from glycated hemoglobin mass conc (Bld) 140 mg/dL High 68 - 114 mg/dL [facility] HbA1c (Bld) [Mass fraction] 6.5 % High 4 - 5.6 % [facility] Interpretation and review of laboratory results Abnormal [facility] Normal: 4.0% - 5.6% Increased risk for diabetes: 5.7% - 6.4% Diabetes: >= 6.5% Pediatrics: No established reference range Estimated average glucose: 68-114 mg/dL [facility] Hepatic Function Panelon Albumin [Mass/Vol] 3.1 g/dL Low 3.2 - 5.2 g/dL [facility] ALP [Catalytic activity/Vol] 68 U/L 40 - 150 U/L [facility] ALT [Catalytic activity/Vol] 79 U/L High 14 - 65 U/L [facility] AST [Catalytic activity/Vol] 42 U/L 0 - 45 U/L [facility] Bilirubin [Mass/Vol] 0.7 mg/dL 0 - 1.3 mg/dL [facility] Bilirubin.conjugated [Mass/Vol] 0.1 mg/dL 0 - 0.4 mg/dL [facility] Protein [Mass/Vol] 6.3 g/dL 6 - 8 g/dL [facility] Otheron 01-20-2019 Interpretation and review of laboratory results Normal [facility] Interpretation and review of laboratory results Abnormal [facility] POC ARTERIAL BLOOD GAS PANEL -PULM - RALSon 01-20-2019 Alveolar-arterial oxygen Partial pressure difference 24.0 mm Hg [facility] Base excess Calc (Bld) [Moles/Vol] 0.6 mmol/L [facility] Breath rate setting Ventilator synchronized intermittent mandatory 0 [facility] h CO2 (Bld) [Partial pressure] 41.3 mm[Hg] [facility] HCO3 (Bld) [Moles/Vol] 25.5 mmol/L 22 - 26 mmol/L [facility] Hematocrit (BldA) [Volume fraction] 43.1 % 41 - 53 % [facility] Hemoglobin (Bld) [Mass/Vol] 14.1 g/dL 13.5 - 18 g/dL [facility] Inhaled oxygen concentration 21 % [facility] Interpretation and review of laboratory results Abnormal [facility] Oxygen (Bld) [Partial pressure] 70 mm[Hg] Low [facility] pH (Bld) 7.40 [pH] [facility] SaO2% (BldA) [Mass fraction] 94.5 % 92 - 99 % [facility] Specimen source Nom (Unsp spec) Radial, left [facility] Tidal volume setting Ventilator 0 [facility] PT/INRon 01-20-2019 INR Coag (PPP) [Relative time] 1.0 {INR} [facility] Interpretation and review of laboratory results Normal [facility] PT Coag (PPP) [Time] 12.7 s [facility] During the induction phase of oral anticoagulation, the INR may not reflect the anticoagulation status of the patient. Therapeutic ranges for INR's are: Most clinical situations: INR 2.0-3.0 Mechanical Prosthetic Valve: INR 2.5-3.5 Critical: INR >5.0 [facility] Prealbuminon 01-20-2019 Prealbumin [Mass/Vol] 19.7 mg/dL Low 20 - 4 0 mg/dL [facility] T4, Freeon 01-20-2019 Free T4 [Mass/Vol] 1.0 ng/dL 0.7 - 1.7 ng/dL [facility] TSHon 01-20-2019 TSH Qn 1.15 m[IU]/L [facility] Type and Screenon 01-20-2019 ABO and Rh group Nom (Bld) O Negative [facility] Blood group antibody screen Ql Negative [facility] Specimen Expires 01/23/2019 23:59 EST [facility] APTTon 01-19-2019 aPTT Coag (Bld) [Time] 79 s [facility] Interpretation and review of laboratory results Abnormal [facility] Therapeutic range fo r APTT's is 68 - 104 seconds [facility] aPTT Coag (Bld) [Time] 85 s [facility] Interpretation and review of laboratory results Abnormal [facility] Therapeutic range fo r APTT's is 68 - 104 seconds [facility] aPTT Coag (Bld) [Time] 89 s [facility] Interpretation and review of laboratory results Abnormal [facility] Therapeutic range fo r APTT's is 68 - 104 seconds [facility] Basic Metabolic Panelon Anion gap [Moles/Vol] 11 mmol/L 10 - 2 0 mmol/L [facility] Calcium [Mass/Vol] 8.6 mg/dL 8.4 - 10. 2 mg/dL [facility] Chloride [Moles/Vol] 108 mmol/L 98 - 10 8 mmol/L [facility] Creatinine [Mass/Vol] 1.15 mg/dL 0.5 - 1.3 mg/dL [facility] GFR/1.73 sq M.predicted CKD-EPI (S/P/Bld) [Vol rate/Area] 75 >=60 mL/min/1.7 3 m2 [facility] Glucose [Mass/Vol] 121 mg/dL High 65 - 99 mg/dL [facility] HCO3 [Moles/Vol] 25 mmol/L 21 - 32 mmol/L [facility] Interpretation and review of laboratory results Abnormal [facility] Potassium [Moles/Vol] 4.0 mmol/L 3.5 - 5.1 mmol/L [facility] Sodium [Moles/Vol] 140 mmol/L 135 - 145 mmol/L [facility] Urea nitrogen [Mass/Vol] 19 mg/dL 8 - 25 mg/dL [facility] Urea nitrogen/Creatinine [Mass ratio] 16.5 mg/mg [facility] The eGFR should be u sed for monitoring renal function only and not for medication dosing. [facility] CBCon 01-19-2019 Erythrocyte distribution width (RBC) [Entitic vol] 14.1 % 11.6 - 14.8 % [facility] Hematocrit (Bld) [Volume fraction] 41.6 % 41 - 53 % [facility] Hemoglobin (Bld) [Mass/Vol] 13.8 g/dL 13.5 - 17.5 g/dL [facility] Interpretation and review of laboratory results Abnormal [facility] MCH (RBC) [Entitic mass] 28.1 pg 26 - 34 pg [facility] MCHC (RBC) [Mass/Vol] 33.2 g/dL 31 - 3 7 g/dL [facility] MCV (RBC) [Entitic vol] 84.7 fL 80 - 100 fL [facility] Nucleated RBC (Bld) [#/Vol] 0.00 10*3/uL [facility] Nucleated RBC/100 WBC (Bld) [Ratio] 0.0 % [facility] Platelet mean volume (Bld) [Entitic vol] 10.0 fL 9 - 15.5 fL [facility] Platelets (Bld) [#/Vol] 258 10*3/uL [facility] RBC (Bld) [#/Vol] 4.91 10*6/uL [facility] WBC (Bld) [#/Vol] 14.77 10*3/uL [facility] CBC WITH AUTO DIFFERENTIALon 01-19-2019 Basophils (Bld) [#/Vol] 0.08 10*3/uL [facility] Basophils/100 WBC (Bld) 0.6 % [facility] Eosinophils (Bld) [#/Vol] 0.74 10*3/uL High [facility] Eosinophils/100 WBC (Bld) 5.6 % [facility] Erythrocyte distribution width (RBC) [Entitic vol] 14.3 % 11.6 - 14.8 % [facility] Hematocrit (Bld) [Volume fraction] 41.6 % 41 - 53 % [facility] Hemoglobin (Bld) [Mass/Vol] 13.7 g/dL 13.5 - 17.5 g/dL [facility] Immature granulocytes (Bld) [#/Vol] 0.10 10*3/uL [facility] Immature granulocytes/100 WBC (Bld) 0.80 % [facility] Comment on above: The IG parameter is the percentage of metamyelocytes, myelocytes, and promyelocytes. Interpretation and review of laboratory results Abnormal [facility] Lymphocytes (Bld) [#/Vol] 3.57 10*3/uL [facility] Lymphocytes/100 WBC (Bld) 27.0 % [facility] MCH (RBC) [Entitic mass] 28.3 pg 26 - 34 pg [facility] MCHC (RBC) [Mass/Vol] 32.9 g/dL 31 - 3 7 g/dL [facility] MCV (RBC) [Entitic vol] 86.0 fL 80 - 100 fL [facility] Monocytes (Bld) [#/Vol] 0.92 10*3/uL [facility] Monocytes/100 WBC (Bld) 7.0 % [facility] Neutrophils (Bld) [#/Vol] 7.81 10*3/uL [facility] Neutrophils/100 WBC (Bld) 59.0 % [facility] Nucleated RBC (Bld) [#/Vol] 0.00 10*3/uL [facility] Nucleated RBC/100 WBC (Bld) [Ratio] 0.0 % [facility] Platelet mean volume (Bld) [Entitic vol] 10.1 fL 9 - 15.5 fL [facility] Platelets (Bld) [#/Vol] 256 10*3/uL [facility] RBC (Bld) [#/Vol] 4.84 10*6/uL [facility] WBC (Bld) [#/Vol] 13.22 10*3/uL [facility] APTTon 01-18-2019 aPTT Coag (Bld) [Time] 65 s [facility] Interpretation and review of laboratory results Abnormal [facility] Therapeutic range fo r APTT's is 68 - 104 seconds [facility] aPTT Coag (Bld) [Time] 55 s [facility] Interpretation and review of laboratory results Abnormal [facility] Therapeutic range fo r APTT's is 68 - 104 seconds [facility] aPTT Coag (Bld) [Time] 31 s [facility] Interpretation and review of laboratory results Normal [facility] Therapeutic range fo r APTT's is 68 - 104 seconds [facility] Basic Metabolic Panelon 12- Anion gap [Moles/Vol] 9 mmol/L Low 10 - 2 0 mmol/L [facility] Calcium [Mass/Vol] 8.1 mg/dL Low 8.4 - 10. 2 mg/dL [facility] Chloride [Moles/Vol] 109 mmol/L High 98 - 10 8 mmol/L [facility] Creatinine [Mass/Vol] 1.11 mg/dL 0.5 - 1.3 mg/dL [facility] GFR/1.73 sq M.predicted CKD-EPI (S/P/Bld) [Vol rate/Area] 79 >=60 mL/min/1.7 3 m2 [facility] Glucose [Mass/Vol] 125 mg/dL High 65 - 99 mg/dL [facility] HCO3 [Moles/Vol] 24 mmol/L 21 - 32 mmol/L [facility] Potassium [Moles/Vol] 4.0 mmol/L 3.5 - 5.1 mmol/L [facility] Sodium [Moles/Vol] 138 mmol/L 135 - 145 mmol/L [facility] Urea nitrogen [Mass/Vol] 22 mg/dL 8 - 25 mg/dL [facility] Urea nitrogen/Creatinine [Mass ratio] 19.8 mg/mg [facility] The eGFR should be u sed for monitoring renal function only and not for medication dosing. [facility] CBCon 01-17-2019 Erythrocyte distribution width (RBC) [Entitic vol] 14.1 % 11.6 - 14.8 % [facility] Hematocrit (Bld) [Volume fraction] 38.7 % Low 41 - 53 % [facility] Hemoglobin (Bld) [Mass/Vol] 12.8 g/dL Low 13.5 - 17.5 g/dL [facility] Interpretation and review of laboratory results Abnormal [facility] MCH (RBC) [Entitic mass] 28.4 pg 26 - 34 pg [facility] MCHC (RBC) [Mass/Vol] 33.1 g/dL 31 - 3 7 g/dL [facility] MCV (RBC) [Entitic vol] 85.8 fL 80 - 100 fL [facility] Nucleated RBC (Bld) [#/Vol] 0.00 10*3/uL [facility] Nucleated RBC/100 WBC (Bld) [Ratio] 0.0 % [facility] Platelet mean volume (Bld) [Entitic vol] 9.9 fL 9 - 15.5 fL [facility] Platelets (Bld) [#/Vol] 227 10*3/uL [facility] RBC (Bld) [#/Vol] 4.51 10*6/uL [facility] WBC (Bld) [#/Vol] 11.26 10*3/uL [facility] CBC WITH AUTO DIFFERENTIALon 01-17-2019 Basophils (Bld) [#/Vol] 0.08 10*3/uL [facility] Basophils/100 WBC (Bld) 0.7 % [facility] Eosinophils (Bld) [#/Vol] 0.64 10*3/uL [facility] Eosinophils/100 WBC (Bld) 5.3 % [facility] Erythrocyte distribution width (RBC) [Entitic vol] 14.0 % 11.6 - 14.8 % [facility] Hematocrit (Bld) [Volume fraction] 41.5 % 41 - 53 % [facility] Hemoglobin (Bld) [Mass/Vol] 13.6 g/dL 13.5 - 17.5 g/dL [facility] Immature granulocytes (Bld) [#/Vol] 0.08 10*3/uL [facility] Immature granulocytes/100 WBC (Bld) 0.70 % [facility] Comment on above: The IG parameter is the percentage of metamyelocytes, myelocytes, and promyelocytes. Interpretation and review of laboratory results Abnormal [facility] Lymphocytes (Bld) [#/Vol] 3.37 10*3/uL [facility] Lymphocytes/100 WBC (Bld) 27.9 % [facility] MCH (RBC) [Entitic mass] 28.0 pg 26 - 34 pg [facility] MCHC (RBC) [Mass/Vol] 32.8 g/dL 31 - 3 7 g/dL [facility] MCV (RBC) [Entitic vol] 85.6 fL 80 - 100 fL [facility] Monocytes (Bld) [#/Vol] 1.02 10*3/uL [facility] Monocytes/100 WBC (Bld) 8.4 % [facility] Neutrophils (Bld) [#/Vol] 6.89 10*3/uL [facility] Neutrophils/100 WBC (Bld) 57.0 % [facility] Nucleated RBC (Bld) [#/Vol] 0.00 10*3/uL [facility] Nucleated RBC/100 WBC (Bld) [Ratio] 0.0 % [facility] Platelet mean volume (Bld) [Entitic vol] 10.0 fL 9 - 15.5 fL [facility] Platelets (Bld) [#/Vol] 269 10*3/uL [facility] RBC (Bld) [#/Vol] 4.85 10*6/uL [facility] WBC (Bld) [#/Vol] 12.08 10*3/uL [facility] D-DIMER, QUANTITATIVEon 12-0 Fibrin D-dimer FEU (PPP) [Mass/Vol] <0.27 0.27 - 0.49 mcg/mL FEU [facility] Interpretation and review of laboratory results Normal [facility] A D-dimer concentrat ion of <0.5 micrograms per milliliter FEU is considered a low probability for pulmonary embolus (PE) and deep venous thrombosis (DVT). Results of this test should always be interpreted in conjunction with the patient's medical history,clinical presentation, and other findings. Clinical diagnosis should not be based on the results of the D-dimer alone. [facility] Fibrin D-dimer FEU (PPP) [Mass/Vol] 0.30 0.27 - 0.49 mcg/mL FEU [facility] Interpretation and review of laboratory results Normal [facility] A D-dimer concentrat ion of <0.5 micrograms per milliliter FEU is considered a low probability for pulmonary embolus (PE) and deep venous thrombosis (DVT). Results of this test should always be interpreted in conjunction with the patient's medical history,clinical presentation, and other findings. Clinical diagnosis should not be based on the results of the D-dimer alone. [facility] ECG 12-LEADon 01-17-2019 Atrial Rate 73 BPM [facility] P [place] 67 degrees [facility] P-R Interval 164 ms [facility] Q-T Interval 386 ms [facility] QRS Duration 86 ms [facility] QTC Calculation (Bezet) 425 ms [facility] R [place] 2 degrees [facility] T [place] 65 degrees [facility] Ventricular Rate 73 BPM [facility] th Normal sinus rhythm Low voltage QRS Inferior infarct , age undetermined Cannot rule out Anteroseptal infarct , age undetermined Abnormal ECG ECG Cart Interpretation see physician note for interpretation. Confirmed by Brandy Kc ([id number]) on 01/17/2019 12:18:52 PM [facility] Hepatic Function Panel (LFT) on 01-17-2019 Albumin [Mass/Vol] 3.1 g/dL Low 3.2 - 5.2 g/dL [facility] ALP [Catalytic activity/Vol] 75 U/L 40 - 150 U/L [facility] ALT [Catalytic activity/Vol] 67 U/L High 14 - 65 U/L [facility] AST [Catalytic activity/Vol] 28 U/L 0 - 45 U/L [facility] Bilirubin [Mass/Vol] 0.9 mg/dL 0 - 1.3 mg/dL [facility] Bilirubin.conjugated [Mass/Vol] 0.2 mg/dL 0 - 0.4 mg/dL [facility] Protein [Mass/Vol] 6.2 g/dL 6 - 8 g/dL [facility] Lactic Acid, Plasmaon 2018 Interpretation and review of laboratory results Normal [facility] Lactate [Moles/Vol] 1.2 mmol/L 0.6 - 2 mmol/L [facility] Lipaseon 01-17-2019 Lipase [Catalytic activity/Vol] 89 U/L 73 - 393 U/L [facility] NT Pro BNPon 01-17-2019 Natriuretic peptide.B prohormone N-Terminal [Mass/Vol] 123 pg/mL 0 - 300 pg/mL [facility] Comment on above: Please note referenc e range change as of 01/30/18. [employer] Cut-offs Rule In: < /= 50 Years >450 pg/mL 51 Years - 75 Years >900 pg/mL 76 Years - 99 Years >1800 pg/mL Rule Out: All patients <300 pg/mL [facility] Otheron 01-17-2019 Interpretation and review of laboratory results Abnormal [facility] Interpretation and review of laboratory results Normal [facility] PT/INRon 01-17-2019 INR Coag (PPP) [Relative time] 1.0 {INR} [facility] Interpretation and review of laboratory results Normal [facility] PT Coag (PPP) [Time] 12.5 s [facility] During the induction phase of oral anticoagulation, the INR may not reflect the anticoagulation status of the patient. Therapeutic ranges for INR's are: Most clinical situations: INR 2.0-3.0 Mechanical Prosthetic Valve: INR 2.5-3.5 Critical: INR >5.0 [facility] TROPONINon 01-17-2019 Troponin I.cardiac [Mass/Vol] ng/mL <=45 ng/L [facility] Troponin I.cardiac [Mass/Vol] No biomarker evidence of cardiac injury. [facility] Troponin I.cardiac [Mass/Vol] No biomarker evidence of cardiac injury. [facility] Troponin I.cardiac [Mass/Vol] ng/mL <=45 ng/L [facility] Troponin I.cardiac [Mass/Vol] ng/mL <=45 ng/L [facility] Troponin I.cardiac [Mass/Vol] Normal [facility] URINALYSISon 01-17-2019 Bacteria Auto Ql (U) None Seen None Se en /hpf [facility] Bilirubin Ql (U) Negative Negative [facility] th Clarity Refractometry automated (U) Clear Clear [facility] Color (U) Yellow Colorless, Yellow [facility] Glucose Auto test strip (U) [Mass/Vol] Negative Negative mg/dL [facility] Hemoglobin Auto test strip Ql (U) Negative Negative [facility] Interpretation and review of laboratory results Normal [facility] Ketones (U) [Mass/Vol] Negative Negat bryan mg/dL [facility] Leukocyte esterase Auto test strip Ql (U) Negative Negative [facility] Nitrite Auto test strip Ql (U) Negative Negative [facility] pH (U) 6.0 [pH] [facility] Protein (U) [Mass/Vol] Negative Negat bryan mg/dL [facility] Specific gravity (U) [Rel density] 1.019 [facility] Urobilinogen (U) [Mass/Vol] <2.0 <2.0 mg/dL [facility] WBC Auto (Urine sed) [#/Area] <1 [facility] Microscopic examinat ion is performed on all urinalysis samples and only positive findings are reported. The test for blood on the chemical analytic portion of urinalysis may also be positive due to hemoglobinuria and myoglobinuria and if red blood cells are present they are quantified by microscopic examination. [facility] XR Chest 1 Viewon 01-17-2019 No acute cardiopulmo nary process. [employer] Workstation ID: [id number] [facility] Interface, Rad In Fu ji Speechq [...] is unremarkable. IMPRESSION: No acute cardiopulmonary process. [employer] Workstation ID: [id number] [facility] EXAMINATION: XR CHES T PA/AP HISTORY: [...] normal in size. Bony thorax is unremarkable. [facility] ECG 12-LEADon 01-04-2019 Brian Cordoba MD 01/04/2019 7:49 PM ECG 12- Lead Date/Time: 01/04/2019 6:25 PM Performed by: Brian Cordoba MD Authorized by: Brian Cordoba MD Rhythm: sinus rhythm BPM: 75 Comments: Normal sinus rhythm at rate of 75 bpm low voltage QRS; QTC 4 4 4 ms; [facility] POC B-type natriuretic pepti de (BNP)on 01-04-2019 Interpretation and review of laboratory results Normal [facility] Natriuretic peptide B (Bld) [Mass/Vol] 42.1 pg/mL <100 [facility] POC Basic Metabolic Panelon 01-04-2019 Calcium.ionized (Bld) [Mass/Vol] 4.8 mg/dL 4.5 - 5.3 mg/dL [facility] Chloride [Moles/Vol] 102 mmol/L 98 - 10 8 mmol/L [facility] CO2 [Moles/Vol] 27 mmol/L 21 - 32 mmol/L [facility] Creatinine [Mass/Vol] 0.95 mg/dL 0.5 - 1.3 mg/dL [facility] GFR/1.73 sq M.predicted MDRD (S/P/Bld) [Vol rate/Area] 95 mL/min/{1.73_m2} >=60 mL/min/1.7 3 m2 [facility] Glucose [Mass/Vol] 123 mg/dL High 65 - 99 mg/dL [facility] Interpretation and review of laboratory results Abnormal [facility] Potassium [Moles/Vol] 4.0 mmol/L 3.5 - 5.1 mmol/L [facility] Sodium [Moles/Vol] 141 mmol/L 135 - 145 mmol/L [facility] Urea nitrogen [Mass/Vol] 23 mg/dL 8 - 25 mg/dL [facility] POC CBC and Differentialon 1 03-06-2018 Erythrocyte distribution width (RBC) [Entitic vol] 14.8 % 11.6 - 14.8 % [facility] Hematocrit (Bld) [Volume fraction] 43.1 % 41 - 53 % [facility] Hemoglobin (Bld) [Mass/Vol] 14.3 g/dL 13.5 - 17.5 g/dL [facility] Interpretation and review of laboratory results Abnormal [facility] Lymphocytes (Bld) [#/Vol] 3.0 10*3/uL [facility] Lymphocytes/100 WBC (Bld) 25.9 % [facility] MCH (RBC) [Entitic mass] 28.4 pg 26 - 34 pg [facility] MCHC (RBC) [Mass/Vol] 33.2 g/dL 31 - 3 7 g/dL [facility] MCV (RBC) [Entitic vol] 85.5 fL 80 - 100 fL [facility] Mixed 10.6 % [facility] Mixed Abs 1.2 K/mcl [facility] Neutrophil Abs 7.3 High [facility] Neutrophils/100 WBC (Bld) 63.5 % [facility] Platelet mean volume (Bld) [Entitic vol] 10.6 fL 9 - 15.5 fL [facility] Platelets (Bld) [#/Vol] 289 10*3/uL [facility] RBC (Bld) [#/Vol] 5.04 10*6/uL [facility] ealth WBC (Bld) [#/Vol] 11.50 10*3/uL [facility] POC D-dimeron 01-04-2019 Fibrin D-dimer DDU (PPP) [Mass/Vol] <100 <350 ng/mL DDU [facility] Interpretation and review of laboratory results Normal [facility] A D-Dimer concentrat ion of <350 [...] normal patients are less than 400 ng/ml. [facility] POC Liver Panel Pluson 01-04 Albumin [Mass/Vol] 3.4 g/dL 3.2 - 5.2 g/dL [facility] ALP [Catalytic activity/Vol] 83 U/L 40 - 150 U/L [facility] ALT [Catalytic activity/Vol] 52 U/L High 0 - 40 U/L [facility] Amylase [Catalytic activity/Vol] 42 U/L 25 - 115 U/L [facility] AST [Catalytic activity/Vol] 34 U/L 0 - 45 U/L [facility] Bilirubin [Mass/Vol] 0.8 mg/dL 0 - 1.3 mg/dL [facility] Gamma glutamyl transferase [Catalytic activity/Vol] 28 U/L 11 - 51 U/L [facility] Interpretation and review of laboratory results Abnormal [facility] Protein [Mass/Vol] 6.5 g/dL 6 - 8 g/dL [facility] POC Troponin Ion 01-04-2019 Interpretation and review of laboratory results Normal [facility] Troponin I.cardiac [Mass/Vol] ng/mL <0.05 ng/mL [facility] XR CHEST AP/PA AND LATon Interface, [...] IMPRESSION: Nonacute two-view chest. Workstation ID: [id number] [facility] EXAMINATION: XR CHES T AP/PA AND [...] The diaphragm and bony elements are intact. [facility] Nonacute two-view ch est. Workstation ID: [id number] [facility] NT PRO BNPon 12-26-2018 Interpretation and review of laboratory results Normal [facility] Natriuretic peptide.B prohormone N-Terminal [Mass/Vol] 58 pg/mL 0 - 300 pg/mL [facility] Comment on above: Please note referenc e range change as of 01/30/18. [employer] Study Cut-offs Rule In: < /= 50 Years >450 pg/mL 51 Years - 75 Years >900 pg/mL 76 Years - 99 Years >1800 pg/mL Rule Out: All patients <300 pg/mL [facility] MR Cardiac (Sap Pi Developer Juana heller) w/Velocity Flowon 12-25-2018 [facility] CMR Repor t Name: FERNANDO HELTON [...] Hypo 51-75% Apical Lateral Mild/Mod Hypo 51-75% Goodell Severe Hypo 51-75% + +--- + ------+ [...] m^2 SETUP TYPE: Clinical INPATIENT: No LOCATION: [facility] INCOMPLETE SCAN: No REASON(S) FOR SCAN: Cardiomyopathy, Thrombus (evaluate for) REFERRING PHYSICIAN: PATRICIA LOUIS ATTENDING PHYSICIAN: GILMER EDUARDO TECHNOLOGIST: Vidhi Escobar Patient Account [id number] CPT Codes 13215 ICD10 Codes I50.22 Report generated by [employer], a product of [employer] Interface, Rad In Covarity - 12/25/2018 5:14 PM EST [facility] CMR Report Name: FERNANDO HELTON : [...] Hypo 51-75% Apical Lateral Mild/Mod Hypo 51-75% Goodell Severe Hypo 51-75% + +--- + ------+ [...] m^2 SETUP TYPE: Clinical INPATIENT: No LOCATION: [facility] INCOMPLETE SCAN: No REASON(S) FOR SCAN: Cardiomyopathy, Thrombus (evaluate for) REFERRING PHYSICIAN: PATRICIA LOUIS ATTENDING PHYSICIAN: GILMER EDUARDO TECHNOLOGIST: Vidhi Escobar Patient Account [id number] CPT Codes 50788 ICD10 Codes I50.22 Report generated by [employer], a product of [employer] [facility] ECHOCARDIOGRAM 2D COMPLETEon 12-10-2018 Transthoracic Echocardiogram Patient: KYLE Hernandez [facility] Rec#: [id number] (Age): 1970(48y) Height: 167.64(cm)/65(i Study Date: 12/10/2018 Weight: 112.49(kg)/247( Room#: BSA: [id number] Type: Loc: Sex: M Reading: Magda Durán MD Referring: Moises Patel M.D Ordering ProvidTruax, Kathryn CNS Test Preparation Tutor: Mariann Syed RN RDCS History: COPD. Coronary [...] at 12/10/2018 17:14:17 by: Magda Durán MD [facility] Interface, Rad In [employer] Xper Echopacs - 12/10/2018 5:28 PM EDT Transthoracic Echocardiogram Patient: KYLE Hernandez [facility] Rec#: [id number] (Age): 1970(48y) Height: 167.64(cm)/65(i Study Date: 12/10/2018 Weight: 112.49(kg)/247( Room#: BSA: [id number] Type: Loc: Sex: M Reading: Magda Durán MD Referring: Moises Patel M.D Ordering Patricia Keller [facility] Test Preparation Tutor: Mariann Syed RN RDCS History: COPD. Coronary [...] at 12/10/2018 17:14:17 by: Magda Durán MD [facility] EKGon 09-28-2018 Ordered by an unspec ified provider. [facility] CBC WITH AUTO DIFFERENTIALon 09-27-2018 Basophils (Bld) [#/Vol] 0.09 10*3/uL [facility] Basophils/100 WBC (Bld) 0.7 % [facility] Eosinophils (Bld) [#/Vol] 0.82 10*3/uL High [facility] Eosinophils/100 WBC (Bld) 6.2 % [facility] Erythrocyte distribution width (RBC) [Entitic vol] 14.7 % 11.6 - 14.8 % [facility] Hematocrit (Bld) [Volume fraction] 44.7 % 41 - 53 % [facility] Hemoglobin (Bld) [Mass/Vol] 14.7 g/dL 13.5 - 17.5 g/dL [facility] Immature granulocytes (Bld) [#/Vol] 0.08 10*3/uL [facility] Immature granulocytes/100 WBC (Bld) 0.60 % [facility] Comment on above: The IG parameter is the percentage of metamyelocytes, myelocytes, and promyelocytes. Interpretation and review of laboratory results Abnormal [facility] Lymphocytes (Bld) [#/Vol] 4.45 10*3/uL High [facility] Lymphocytes/100 WBC (Bld) 33.4 % [facility] MCH (RBC) [Entitic mass] 27.6 pg 26 - 34 pg [facility] MCHC (RBC) [Mass/Vol] 32.9 g/dL 31 - 3 7 g/dL [facility] MCV (RBC) [Entitic vol] 83.9 fL 80 - 100 fL [facility] Monocytes (Bld) [#/Vol] 1.10 10*3/uL [facility] Monocytes/100 WBC (Bld) 8.3 % [facility] Neutrophils (Bld) [#/Vol] 6.79 10*3/uL [facility] Neutrophils/100 WBC (Bld) 50.8 % [facility] Nucleated RBC (Bld) [#/Vol] 0.00 10*3/uL [facility] Nucleated RBC/100 WBC (Bld) [Ratio] 0.0 % [facility] Platelet mean volume (Bld) [Entitic vol] 10.6 fL 9 - 15.5 fL [facility] Platelets (Bld) [#/Vol] 288 10*3/uL [facility] RBC (Bld) [#/Vol] 5.33 10*6/uL [facility] ealth WBC (Bld) [#/Vol] 13.33 10*3/uL [facility] ECG 12-LEADon 09-27-2018 Atrial Rate 90 BPM [facility] P [place] 62 degrees [facility] P-R Interval 164 ms [facility] Q-T Interval 348 ms [facility] QRS Duration 94 ms [facility] QTC Calculation (Bezet) 425 ms [facility] R [place] 0 degrees [facility] T [place] 72 degrees [facility] Ventricular Rate 90 BPM [facility] th Normal sinus rhythm Low voltage QRS Cannot rule out Anteroseptal infarct , age undetermined Abnormal ECG ECG Cart Interpretation see physician note for interpretation. Confirmed by Brandy Kc ([id number]) on 09/27/2018 8:20:21 PM [facility] Nathanael Valencia MD 09/27/2018 10:00 PM ECG 12 Lead Date/Time: 09/27/2018 7:16 PM Performed by: Nathanael Valencia MD Authorized by: Nathanael Valencia MD Comparison: not compared with previous ECG Rhythm: sinus rhythm BPM: 90 Conduction: conduction normal ST Segments: ST segments normal T Waves: T waves normal Clinical impression: non-specific ECG Comments: No acute ischemic changes [facility] POC B-type natriuretic pepti de (BNP)on 09-27-2018 Interpretation and review of laboratory results Normal [facility] Natriuretic peptide B (Bld) [Mass/Vol] 19.0 pg/mL <100 [facility] POC Basic Metabolic Panelon 09-27-2018 Calcium [Mass/Vol] 9.5 mg/dL 8.4 - 10. 2 mg/dL [facility] Chloride [Moles/Vol] 106 mmol/L 98 - 10 8 mmol/L [facility] CO2 [Moles/Vol] 25 mmol/L 21 - 32 mmol/L [facility] Creatinine [Mass/Vol] 1.0 mg/dL 0.5 - 1.3 mg/dL [facility] Glucose [Mass/Vol] 140 mg/dL High 65 - 99 mg/dL [facility] Interpretation and review of laboratory results Abnormal [facility] Potassium [Moles/Vol] 3.4 mmol/L Low 3.5 - 5.1 mmol/L [facility] Sodium [Moles/Vol] 139 mmol/L 135 - 145 mmol/L [facility] Urea nitrogen [Mass/Vol] 20 mg/dL 8 - 25 mg/dL [facility] POC CBC and Differentialon 0 09-27-2018 Comment See Comment Critically abnormal (none) [facility] Comment on above: CRITICAL. CBCD reord ered and sent to . Possible presence of immature granulocytes present. Automated differential not reported. Erythrocyte distribution width (RBC) [Entitic vol] 15.4 % High 11.6 - 14.8 % [facility] Hematocrit (Bld) [Volume fraction] 45.1 % 41 - 53 % [facility] Hemoglobin (Bld) [Mass/Vol] 15.0 g/dL 13.5 - 17.5 g/dL [facility] Interpretation and review of laboratory results Abnormal [facility] MCH (RBC) [Entitic mass] 28.5 pg 26 - 34 pg [facility] MCHC (RBC) [Mass/Vol] 33.3 g/dL 31 - 3 7 g/dL [facility] MCV (RBC) [Entitic vol] 85.6 fL 80 - 100 fL [facility] Platelet mean volume (Bld) [Entitic vol] 10.4 fL 9 - 15.5 fL [facility] Platelets (Bld) [#/Vol] 285 10*3/uL [facility] RBC (Bld) [#/Vol] 5.27 10*6/uL [facility] ealth WBC (Bld) [#/Vol] 13.50 10*3/uL [facility] POC D-dimeron 09-27-2018 Fibrin D-dimer DDU (PPP) [Mass/Vol] <100 <350 ng/mL DDU [facility] Interpretation and review of laboratory results Normal [facility] A D-Dimer concentrat ion of <350 [...] normal patients are less than 400 ng/ml. [facility] POC Troponin Ion 09-27-2018 Interpretation and review of laboratory results Normal [facility] Troponin I.cardiac [Mass/Vol] ng/mL <0.05 ng/mL [facility] Interpretation and review of laboratory results Normal [facility] Troponin I.cardiac [Mass/Vol] ng/mL <0.05 ng/mL [facility] XR Chest 1 Viewon 09-27-2018 Negative acute lorin ble chest. BAB/ads Workstation ID: [id number] [facility] EXAMINATION: XR CHES T PA/AP HISTORY: chest pain COMPARISON: Correlation is made with previous single-view chest 01/08/2018. FINDINGS: Portable AP view of the chest is provided. The cardiomediastinal silhouette is stable. A coronary stent is noted. Lungs are free of focal infiltrate. There is no pleural effusion or pneumothorax present. Bones appear unremarkable. [facility] Interface, Rad In Fu ji Speechq [...] acute portable chest. BAB/ads Workstation ID: [id number] [facility] CBC with Diffon 01-09-2018 Basophils #/vol (Bld) 0.1 K/mcL Normal 0-0.2 [facility] Comment on above: Performed By: #### F SBNP #### Unless otherwise noted, all testing performed by [place] [phone] CLIA: [id number] Couples Therapist: Twin Marley M.D. Basophils/100 WBC (Bld) 1.2 % Normal [facility] Comment on above: Performed By: #### F SBNP #### Unless otherwise noted, all testing performed by [place] [phone] CLIA: [id number] Couples Therapist: Twin Marley M.D. Eosinophils #/vol (Bld) 0.5 K/mcL Normal 0-0.5 [facility] Comment on above: Performed By: #### F SBNP #### Unless otherwise noted, all testing performed by [place] [phone] CLIA: [id number] Couples Therapist: Twin Marley M.D. Eosinophils/100 WBC (Bld) 4.4 % Normal [facility] Comment on above: Performed By: #### F SBNP #### Unless otherwise noted, all testing performed by [place] [address] CLIA: [id number] Couples Therapist: Twin Marley M.D. Erythrocyte distribution width Ratio (RBC) 14.8 % High 10-14.3 [facility] Comment on above: Performed By: #### F SBNP #### Unless otherwise noted, all testing performed by [place] [address] CLIA: [id number] Couples Therapist: Twin Marley M.D. Hematocrit Volume Fraction (Bld) 44.7 % Normal 37.9-49.2 [facility] Comment on above: Performed By: #### F SBNP #### Unless otherwise noted, all testing performed by [place] [address] CLIA: [id number] Couples Therapist: Twin Marley M.D. Hemoglobin mass conc (Bld) 14.7 g/dL Normal 12.9-16.9 [facility] Comment on above: Performed By: #### F SBNP #### Unless otherwise noted, all testing performed by [place] [address] CLIA: [id number] Couples Therapist: Twin Marley M.D. Lymphocytes #/vol (Bld) 4.4 K/mcL High 0.9-3.6 [facility] Comment on above: Performed By: #### F SBNP #### Unless otherwise noted, all testing performed by [place] [address] CLIA: [id number] Couples Therapist: Twin Marley M.D. Lymphocytes/100 WBC (Bld) 38.3 % Normal [facility] Comment on above: Performed By: #### F SBNP #### Unless otherwise noted, all testing performed by [place] [address] CLIA: [id number] Couples Therapist: Twin Marley M.D. MCH Entitic mass (RBC) 27.7 pg Normal 27.7-34.6 [facility] Comment on above: Performed By: #### F SBNP #### Unless otherwise noted, all testing performed by [place] [address] CLIA: [id number] Couples Therapist: Twin Marley M.D. MCHC mass conc (RBC) 32.8 g/dL Low 32.9-35.5 [facility] Comment on above: Performed By: #### F SBNP #### Unless otherwise noted, all testing performed by [place] [phone] CLIA: [id number] Couples Therapist: Twin Marley M.D. MCV Entitic volume (RBC) 84.5 fL Normal 82.8-99.3 [facility] Comment on above: Performed By: #### F SBNP #### Unless otherwise noted, all testing performed by [place] [phone] CLIA: [id number] Couples Therapist: Twin Marley M.D. Monocytes #/vol (Bld) 0.8 K/mcL High 0.2-0.6 [facility] Comment on above: Performed By: #### F SBNP #### Unless otherwise noted, all testing performed by [place] [phone] CLIA: [id number] Couples Therapist: Twin Marley M.D. Monocytes/100 WBC (Bld) 6.6 % Normal [facility] Comment on above: Performed By: #### F SBNP #### Unless otherwise noted, all testing performed by [place] [address] CLIA: [id number] Couples Therapist: Twin Marley M.D. Neutrophils #/vol (Bld) 5.7 K/mcL Normal 1.4-6.8 [facility] Comment on above: Performed By: #### F SBNP #### Unless otherwise noted, all testing performed by [place] [address] CLIA: [id number] Couples Therapist: Twin Marley M.D. Platelet mean volume Entitic volume (Bld) 8.7 fL Normal 6.6-10.8 [facility] Comment on above: Performed By: #### F SBNP #### Unless otherwise noted, all testing performed by [place] [address] CLIA: [id number] Couples Therapist: Twin Marley M.D. Platelets #/vol (Bld) 266 K/mcL Normal 139-354 [facility] Comment on above: Performed By: #### F SBNP #### Unless otherwise noted, all testing performed by [place] [address] CLIA: [id number] Couples Therapist: Twin Marley M.D. RBC #/vol (Bld) 5.30 M/mcL Normal 4.0-5.5 [facility] Comment on above: Performed By: #### F SBNP #### Unless otherwise noted, all testing performed by [place] [address] CLIA: [id number] Couples Therapist: Twin Marley M.D. Segmented Neut % 49.5 % Normal [facility] Comment on above: Performed By: #### F SBNP #### Unless otherwise noted, all testing performed by [place] [address] CLIA: [id number] Couples Therapist: Twin Marley M.D. WBC #/vol (Bld) 11.6 K/mcL High 3.6-10.4 [facility] Comment on above: Performed By: #### F SBNP #### Unless otherwise noted, all testing performed by [place] [phone] CLIA: [id number] Couples Therapist: Twin Marley M.D. CHEMG (Basic Metabolic and M g)on 01-09-2018 Calcium mass conc 8.4 mg/dL Normal 8.4-10.2 [facility] Comment on above: Performed By: #### F SBNP #### Unless otherwise noted, all testing performed by [place] [phone] CLIA: [id number] Couples Therapist: Twin Marley M.D. Chloride molar conc 103 mmol/L Normal 98-108 [facility] Comment on above: Performed By: #### F SBNP #### Unless otherwise noted, all testing performed by [place] [address] CLIA: [id number] Couples Therapist: Twin Marley M.D. CO2 molar conc 27 mmol/L Normal 21-32 [facility] Comment on above: Performed By: #### F SBNP #### Unless otherwise noted, all testing performed by [place] [address] CLIA: [id number] Couples Therapist: Twin Marley M.D. Creatinine mass conc 1.14 mg/dL Normal 0.50-1.30 [facility] Comment on above: Performed By: #### F SBNP #### Unless otherwise noted, all testing performed by [place] [address] CLIA: [id number] Couples Therapist: Twin Marley M.D. GFR/1.73 sq M predicted among blacks MDRD vol rate/area (S/P/Bld) mL/min/{1.73_m2} Normal [facility] Comment on above: Result Comment: Afri can [place] GFR Calc Performed By: #### F SBNP #### Unless otherwise noted, all testing performed by [place] [address] CLIA: [id number] Couples Therapist: Twin Marley M.D. GFR/1.73 sq M predicted among non-blacks MDRD vol rate/area (S/P/Bld) mL/min/{1.73_m2} Normal [facility] Comment on above: Result Comment: Non- [...] Unless otherwise noted, all testing performed by [place] [address] CLIA: [id number] Couples Therapist: Twin Marley M.D. Glucose mass conc 102 mg/dL High 70-99 [facility] Comment on above: Result Comment: This test result might be falsely depressed or falsely elevated on samples drawn from patients taking Sulfasalazine and Sulfapyridine. Venipuncture should occur prior to taking either of these drugs. Performed By: #### F SBNP #### Unless otherwise noted, all testing performed by [place] [address] CLIA: [id number] Couples Therapist: Twin Mraley M.D. Magnesium mass conc 2.2 mg/dL Normal 1.6-2.4 [facility] Comment on above: Performed By: #### F SBNP #### Unless otherwise noted, all testing performed by [place] [phone] CLIA: [id number] Couples Therapist: Twin Marley M.D. Potassium molar conc 4.2 mmol/L Normal 3.5-5.1 [facility] Comment on above: Performed By: #### F SBNP #### Unless otherwise noted, all testing performed by [place] [phone] CLIA: [id number] Couples Therapist: Twin Marley M.D. Sodium molar conc 138 mmol/L Normal 135-145 [facility] Comment on above: Performed By: #### F SBNP #### Unless otherwise noted, all testing performed by [place] [address] CLIA: [id number] Couples Therapist: Twin Marley M.D. Urea nitrogen mass conc 20 mg/dL Normal 8-25 [facility] Comment on above: Performed By: #### F SBNP #### Unless otherwise noted, all testing performed by [place] [address] CLIA: [id number] Couples Therapist: Twin Marley M.D. Cardiac Troponin-Ion 018 Troponin I.cardiac mass conc No Biomarker evidence of myocardial injury within the past 14 hours. Normal [facility] Comment on above: Performed By: #### F SCBC #### Unless otherwise noted, all testing performed by [place] [address] CLIA: [id number] Couples Therapist: Twin Marley M.D. Troponin I.cardiac mass conc ng/mL Normal < 45.0 [facility] Comment on above: Result Comment: [...] Unless otherwise noted, all testing performed by [place] [address] CLIA: [id number] Couples Therapist: Twin Marley M.D. Partial Thromboplastin Timeo n 01-09-2018 aPTT Coag time (Bld) 48 s High 23.0-34.0 [facility] Comment on above: Result Comment: Sugg ested therapeutic range for PTT is 68-104 sec. Performed By: #### F SBNP #### Unless otherwise noted, all testing performed by [place] [address] CLIA: [id number] Couples Therapist: Twin Marley M.D. aPTT Coag time (Bld) 39 s High 23.0-34.0 [facility] Comment on above: Result Comment: Sugg ested therapeutic range for PTT is 68-104 sec. Performed By: #### F SCBC #### Unless otherwise noted, all testing performed by [place] [address] CLIA: [id number] Couples Therapist: Twin Marley M.D. Protimeon 01-09-2018 INR Coag RelTime (PPP) 0.94 {INR} Normal [facility] Comment on above: Result Comment: The [place] [employer] recommended therapeutic range for Warfarin (Coumadin) therapy goals: PROPHYLAXIS/TREATMENT of: INR Venous Thrombosis, Pulmonary Embolism 2.0-3.0 Prevention of VTE (Orthopedic Surgery) 2.0-3.0 Atrial Fibrillation 2.0-3.0 Myocardial Infarction 2.0-3.0 Mechanical Prosthetic Heart Valves (Aortic position) 2.0-3.0 Mechanical Prosthetic Heart Valves (Mitral Position) 2.5-3.5 [place] [employer] evidence-based clinical practice guidelines. CHEST. 2012 (9th ed) Performed By: #### F SBNP #### Unless otherwise noted, all testing performed by [place] [address] CLIA: [id number] Couples Therapist: Twin Marley M.D. Prothrombin time (PT) Coag time (PPP) 12.2 s Normal 11.8-14.3 [facility] Comment on above: Performed By: #### F SBNP #### Unless otherwise noted, all testing performed by [place] [address] CLIA: [id number] Couples Therapist: Twin Marley M.D. BLDPATHon 01-08-2018 BLDPATH [id number] Patient Name: FERNANDO HELTON Source Peripheral Blood Diagnosis Absolute lymphocytosis present. Repeat CBC in 12 months or earlier if clinically indicated. If lymphocytosis persists, suggest flow cytometry to rule out a lymphoproliferative disorder. Electronically Signed By Hematology Department , Testing performed at [facility] (Case signed 01/09/2018) Normal [facility] Blood Smear Reviewon 018 Blood Smear Review See Pathology Report. Normal [facility] Comment on above: Performed By: #### F SCBC #### Unless otherwise noted, all testing performed by [place] [address] CLIA: [id number] Couples Therapist: Twin Marley M.D. CBC with Diffon 01-08-2018 Band 1.9 % Normal 0-5 [facility] Comment on above: Performed By: #### F SBMET #### Unless otherwise noted, all testing performed by [place] [address] CLIA: [id number] Couples Therapist: Twin Marley M.D. Basophils #/vol (Bld) 0.0 K/mcL Normal 0-0.2 [facility] Comment on above: Performed By: #### F SBMET #### Unless otherwise noted, all testing performed by [place] [address] CLIA: [id number] Couples Therapist: Twin Marley M.D. Basophils/100 WBC (Bld) 0.0 % Normal [facility] Comment on above: Performed By: #### F SBMET #### Unless otherwise noted, all testing performed by [place] [address] CLIA: [id number] Couples Therapist: Twin Marley M.D. Eosinophils #/vol (Bld) 0.6 K/mcL High 0-0.5 [facility] Comment on above: Performed By: #### F SBMET #### Unless otherwise noted, all testing performed by [place] [address] CLIA: [id number] Couples Therapist: Twin Marley M.D. Eosinophils/100 WBC (Bld) 3.9 % Normal [facility] Comment on above: Performed By: #### F SBMET #### Unless otherwise noted, all testing performed by [place] [address] CLIA: [id number] Couples Therapist: Twin Marley M.D. Erythrocyte distribution width Ratio (RBC) 15.1 % High 10-14.3 [facility] Comment on above: Performed By: #### F SBMET #### Unless otherwise noted, all testing performed by [place] [phone] CLIA: [id number] Couples Therapist: Twin Marley M.D. Hematocrit Volume Fraction (Bld) 44.3 % Normal 37.9-49.2 [facility] Comment on above: Performed By: #### F SBMET #### Unless otherwise noted, all testing performed by [place] [phone] CLIA: [id number] Couples Therapist: Twin Marley M.D. Hemoglobin mass conc (Bld) 14.5 g/dL Normal 12.9-16.9 [facility] Comment on above: Performed By: #### F SBMET #### Unless otherwise noted, all testing performed by [place] [phone] CLIA: [id number] Couples Therapist: Twin Marley M.D. Lymphocytes #/vol (Bld) 5.1 K/mcL High 0.9-3.6 [facility] Comment on above: Performed By: #### F SBMET #### Unless otherwise noted, all testing performed by [place] [address] CLIA: [id number] Couples Therapist: Twin Marley M.D. Lymphocytes/100 WBC (Bld) 35.9 % Normal [facility] Comment on above: Performed By: #### F SBMET #### Unless otherwise noted, all testing performed by [place] [address] CLIA: [id number] Couples Therapist: Twin Marley M.D. MCH Entitic mass (RBC) 27.7 pg Normal 27.7-34.6 [facility] Comment on above: Performed By: #### F SBMET #### Unless otherwise noted, all testing performed by [place] [phone] CLIA: [id number] Couples Therapist: Twin Marley M.D. MCHC mass conc (RBC) 32.6 g/dL Low 32.9-35.5 [facility] Comment on above: Performed By: #### F SBMET #### Unless otherwise noted, all testing performed by [place] [address] CLIA: [id number] Couples Therapist: Twin Marley M.D. MCV Entitic volume (RBC) 84.9 fL Normal 82.8-99.3 [facility] Comment on above: Performed By: #### F SBMET #### Unless otherwise noted, all testing performed by [place] [address] CLIA: [id number] Couples Therapist: Twin Marley M.D. Metamyelocytes/100 WBC (Bld) 1.9 % High 0 [facility] Comment on above: Performed By: #### F SBMET #### Unless otherwise noted, all testing performed by [place] [phone] CLIA: [id number] Couples Therapist: Twin Marley M.D. Monocytes #/vol (Bld) 0.6 K/mcL Normal 0.2-0.6 [facility] Comment on above: Performed By: #### F SBMET #### Unless otherwise noted, all testing performed by [place] [phone] CLIA: [id number] Couples Therapist: Twin Marley M.D. Monocytes/100 WBC (Bld) 3.9 % Normal [facility] Comment on above: Performed By: #### F SBMET #### Unless otherwise noted, all testing performed by [place] [phone] CLIA: [id number] Couples Therapist: Twin Marley M.D. Myelocyte 1.0 % High 0 [facility] Comment on above: Performed By: #### F SBMET #### Unless otherwise noted, all testing performed by [place] [phone] CLIA: [id number] Couples Therapist: Twin Marley M.D. Neutrophils #/vol (Bld) 8.1 K/mcL High 1.4-6.8 [facility] Comment on above: Performed By: #### F SBMET #### Unless otherwise noted, all testing performed by [place] [phone] CLIA: [id number] Couples Therapist: Twin Marley M.D. Platelet mean volume Entitic volume (Bld) 8.8 fL Normal 6.6-10.8 [facility] Comment on above: Performed By: #### F SBMET #### Unless otherwise noted, all testing performed by [place] [address] CLIA: [id number] Couples Therapist: Twin Marley M.D. Platelets #/vol (Bld) 260 K/mcL Normal 139-354 [facility] Comment on above: Performed By: #### F SBMET #### Unless otherwise noted, all testing performed by [place] [phone] CLIA: [id number] Couples Therapist: Twin Marley M.D. RBC #/vol (Bld) 5.22 M/mcL Normal 4.0-5.5 [facility] Comment on above: Performed By: #### F SBMET #### Unless otherwise noted, all testing performed by [place] [phone] CLIA: [id number] Couples Therapist: Twin Marley M.D. Segmented Neut % 51.5 % Normal [facility] Comment on above: Result Comment: Carline mccollum performed. Performed By: #### F SBMET #### Unless otherwise noted, all testing performed by [place] [phone] CLIA: [id number] Couples Therapist: Twin Marley M.D. WBC #/vol (Bld) 14.3 K/mcL High 3.6-10.4 [facility] Comment on above: Performed By: #### F SBMET #### Unless otherwise noted, all testing performed by [place] [address] CLIA: [id number] Couples Therapist: Twin Marley M.D. CHEST (ONE VIEW ONLY)on 12-14 CHEST (ONE VIEW ONLY) Final Report Accession No: [id number] Performed: Jan 08 2018 6:04PM Examination: [...] MURPHY M.D. Trans: n/a : cc: Normal [facility] Cardiac Troponin-Ion 018 Troponin I.cardiac mass conc ng/mL Normal < 45.0 [facility] Comment on above: Result Comment: [...] Unless otherwise noted, all testing performed by [place] [address] CLIA: [id number] Couples Therapist: Twin Marley M.D. Troponin I.cardiac mass conc No Biomarker evidence of myocardial injury within the past 14 hours. Normal [facility] Comment on above: Performed By: #### F SCBC #### Unless otherwise noted, all testing performed by [place] [address] CLIA: [id number] Couples Therapist: Twin Marley M.D. Troponin I.cardiac mass conc ng/mL Normal < 45.0 [facility] Comment on above: Result Comment: [...] Unless otherwise noted, all testing performed by [place] [address] CLIA: [id number] Couples Therapist: Twin Marley M.D. [facility] 01-08-2018 Albumin mass conc 3.3 g/dL Normal 3.2-5.2 [facility] Comment on above: Performed By: #### F SCBC #### Unless otherwise noted, all testing performed by [place] [address] CLIA: [id number] Couples Therapist: Twin Marley M.D. ALP enzyme act/vol 61 U/L Normal 40-150 [facility] Comment on above: Performed By: #### F SCBC #### Unless otherwise noted, all testing performed by [place] [address] CLIA: [id number] Couples Therapist: Twin Marley M.D. ALT enzyme act/vol 41 U/L Normal 14-65 [facility] Comment on above: Result Comment: This test result might be falsely depressed or falsely elevated on samples drawn from patients taking Sulfasalazine and Sulfapyridine. Venipuncture should occur prior to taking either of these drugs. Performed By: #### F SCBC #### Unless otherwise noted, all testing performed by [place] [address] CLIA: [id number] Couples Therapist: Twin Marley M.D. AST enzyme act/vol 19 U/L Normal 0-45 [facility] Comment on above: Result Comment: This test result might be falsely depressed or falsely elevated on samples drawn from patients taking Sulfasalazine and Sulfapyridine. Venipuncture should occur prior to taking either of these drugs. Performed By: #### F SCBC #### Unless otherwise noted, all testing performed by [place] [address] CLIA: [id number] Couples Therapist: Twin Marley M.D. Bilirubin mass conc 0.8 mg/dL Normal 0.3-1.2 [facility] Comment on above: Performed By: #### F SCBC #### Unless otherwise noted, all testing performed by [place] [address] CLIA: [id number] Couples Therapist: Twin Marley M.D. Calcium mass conc 8.4 mg/dL Normal 8.4-10.2 [facility] Comment on above: Performed By: #### F SCBC #### Unless otherwise noted, all testing performed by [place] [address] CLIA: [id number] Couples Therapist: Twin Marley M.D. Chloride molar conc 107 mmol/L Normal 98-108 [facility] Comment on above: Performed By: #### F SCBC #### Unless otherwise noted, all testing performed by [place] [address] CLIA: [id number] Couples Therapist: Twin Marley M.D. CO2 molar conc 26 mmol/L Normal 21-32 [facility] Comment on above: Performed By: #### F SCBC #### Unless otherwise noted, all testing performed by [place] [address] CLIA: [id number] Couples Therapist: Twin Marley M.D. Creatinine mass conc 1.10 mg/dL Normal 0.50-1.30 [facility] Comment on above: Performed By: #### F SCBC #### Unless otherwise noted, all testing performed by [place] [phone] CLIA: [id number] Couples Therapist: Twin Marley M.D. GFR/1.73 sq M predicted among blacks MDRD vol rate/area (S/P/Bld) mL/min/{1.73_m2} Normal [facility] Comment on above: Result Comment: Afri can [place] GFR Calc Performed By: #### F SCBC #### Unless otherwise noted, all testing performed by [place] [address] CLIA: [id number] Couples Therapist: Twin Marley M.D. GFR/1.73 sq M predicted among non-blacks MDRD vol rate/area (S/P/Bld) mL/min/{1.73_m2} Normal [facility] Comment on above: Result Comment: Non- [...] Unless otherwise noted, all testing performed by [address] [place], [place] [address] CLIA: [id number] Couples Therapist: Twin Marley M.D. Glucose mass conc 96 mg/dL Normal 70-99 [facility] Comment on above: Result Comment: This test result might be falsely depressed or falsely elevated on samples drawn from patients taking Sulfasalazine and Sulfapyridine. Venipuncture should occur prior to taking either of these drugs. Performed By: #### F SCBC #### Unless otherwise noted, all testing performed by [place] [address] CLIA: [id number] Couples Therapist: Twin Marley M.D. Potassium molar conc 3.9 mmol/L Normal 3.5-5.1 [facility] Comment on above: Performed By: #### F SCBC #### Unless otherwise noted, all testing performed by [place] [address] CLIA: [id number] Couples Therapist: Twin Marley M.D. Protein mass conc 6.6 g/dL Normal 6.0-8.0 [facility] Comment on above: Performed By: #### F SCBC #### Unless otherwise noted, all testing performed by [place] [address] CLIA: [id number] Couples Therapist: Twin Marley M.D. Sodium molar conc 141 mmol/L Normal 135-145 [facility] Comment on above: Performed By: #### F SCBC #### Unless otherwise noted, all testing performed by [place] [address] CLIA: [id number] Couples Therapist: Twin Marley M.D. Urea nitrogen mass conc 20 mg/dL Normal 8-25 [facility] Comment on above: Performed By: #### F SCBC #### Unless otherwise noted, all testing performed by [place] [address] CLIA: [id number] Couples Therapist: Twin Marley M.D. Magnesiumon 01-08-2018 Magnesium mass conc 2.0 mg/dL Normal 1.6-2.4 [facility] Comment on above: Performed By: #### F SCBC #### Unless otherwise noted, all testing performed by [place] [address] CLIA: [id number] Couples Therapist: Twin Marley M.D. NT-Pro BNP, Serumon 01-09-20 18 Natriuretic peptide B mass conc (Bld) 143 pg/mL High 0-125 [facility] Comment on above: Performed By: #### F SCBC #### Unless otherwise noted, all testing performed by [place] [address] CLIA: [id number] Couples Therapist: Twin Marley M.D. Partial Thromboplastin Timeo n 01-08-2018 aPTT Coag time (Bld) 40 s High 23.0-34.0 [facility] Comment on above: Result Comment: Rosemary sauceda therapeutic range for PTT is 68-104 sec. Performed By: #### F SBMET #### Unless otherwise noted, all testing performed by [place] [address] CLIA: [id number] Couples Therapist: Twin Marley M.D. Protimeon 01-08-2018 INR Coag RelTime (PPP) 0.99 {INR} Normal [facility] Comment on above: Result Comment: The [place] [employer] recommended therapeutic range for Warfarin (Coumadin) therapy goals: PROPHYLAXIS/TREATMENT of: INR Venous Thrombosis, Pulmonary Embolism 2.0-3.0 Prevention of VTE (Orthopedic Surgery) 2.0-3.0 Atrial Fibrillation 2.0-3.0 Myocardial Infarction 2.0-3.0 Mechanical Prosthetic Heart Valves (Aortic position) 2.0-3.0 Mechanical Prosthetic Heart Valves (Mitral Position) 2.5-3.5 [place] [employer] evidence-based clinical practice guidelines. CHEST. 2012 (9th ed) Performed By: #### F SBMET #### Unless otherwise noted, all testing performed by [place] [address] CLIA: [id number] Couples Therapist: Twin Marley M.D. Prothrombin time (PT) Coag time (PPP) 12.7 s Normal 11.8-14.3 [facility] Comment on above: Performed By: #### F SBMET #### Unless otherwise noted, all testing performed by [place] [address] CLIA: [id number] Couples Therapist: Twin Marley M.D. TSHon 01-08-2018 Thyrotropin Qn 2.26 uIU/mL Normal 0.270-4.20 0 [facility] Comment on above: Result Comment: Samp les from patients routinely receiving high dose biotin therapy (100-300 mg/day) may show falsely decreased results. Please correlate clinically. Please note reference range change as of 12/04/17. Performed By: #### F SCBC #### Unless otherwise noted, all testing performed by [place] [address] CLIA: [id number] Couples Therapist: Twin Marley M.D. Basic Metabolic Panelon 12-14 Calcium mass conc 8.4 mg/dL Normal 8.4-10.2 [facility] Comment on above: Performed By: #### F SBMET #### Unless otherwise noted, all testing performed by [place] [address] CLIA: [id number] Couples Therapist: Twin Marley M.D. Chloride molar conc 108 mmol/L Normal 98-108 [facility] Comment on above: Performed By: #### F SBMET #### Unless otherwise noted, all testing performed by [place] [address] CLIA: [id number] Couples Therapist: Twin Marley M.D. CO2 molar conc 24 mmol/L Normal 21-32 [facility] Comment on above: Performed By: #### F SBMET #### Unless otherwise noted, all testing performed by [place] [address] CLIA: [id number] Couples Therapist: Twin Marley M.D. Creatinine mass conc 1.14 mg/dL Normal 0.50-1.30 [facility] Comment on above: Performed By: #### F SBMET #### Unless otherwise noted, all testing performed by [place] [address] CLIA: [id number] Couples Therapist: Twin Marley M.D. GFR/1.73 sq M predicted among blacks MDRD vol rate/area (S/P/Bld) mL/min/{1.73_m2} Normal [facility] Comment on above: Result Comment: Afri can [place] GFR Calc Performed By: #### F SBMET #### Unless otherwise noted, all testing performed by [place] [address] CLIA: [id number] Couples Therapist: Twin Marley M.D. GFR/1.73 sq M predicted among non-blacks MDRD vol rate/area (S/P/Bld) mL/min/{1.73_m2} Normal [facility] Comment on above: Result Comment: Non- [...] Unless otherwise noted, all testing performed by [place] [address] CLIA: [id number] Couples Therapist: Twin Marley M.D. Glucose mass conc 119 mg/dL High 70-99 [facility] Comment on above: Result Comment: This test result might be falsely depressed or falsely elevated on samples drawn from patients taking Sulfasalazine and Sulfapyridine. Venipuncture should occur prior to taking either of these drugs. Performed By: #### F SBMET #### Unless otherwise noted, all testing performed by [place] [address] CLIA: [id number] Couples Therapist: Twin Marley M.D. Potassium molar conc 3.7 mmol/L Normal 3.5-5.1 [facility] Comment on above: Performed By: #### F SBMET #### Unless otherwise noted, all testing performed by [place] [address] CLIA: [id number] Couples Therapist: Twin Marley M.D. Sodium molar conc 140 mmol/L Normal 135-145 [facility] Comment on above: Performed By: #### F SBMET #### Unless otherwise noted, all testing performed by [place] [address] CLIA: [id number] Couples Therapist: Twin Marley M.D. Urea nitrogen mass conc 18 mg/dL Normal 8-25 [facility] Comment on above: Performed By: #### F SBMET #### Unless otherwise noted, all testing performed by [place] [address] CLIA: [id number] Couples Therapist: Twin Marley M.D. DPATHon 09-24-2017 [facility] [id number] Patient Name: FERNANDO HELTON Source Peripheral Blood Diagnosis Absolute eosinophilia. Possible causes include allergic or drug reaction, cutaneous disorders, collagen vascular disease, parasite infection, pulmonary diseases including sarcoidosis, or underlying neoplasm. Suggest clinical correlation. Electronically Signed By Hematology Department , Testing performed at [facility] (Case signed 09/24/2017) Normal [facility] Basic Metabolic Panelon 09-12 Calcium mass conc 7.6 mg/dL Low 8.4-10.2 [facility] Comment on above: Performed By: #### P T #### Unless otherwise noted, all testing performed by [place] [address] CLIA: [id number] Couples Therapist: Twin Marley M.D. Chloride molar conc 108 mmol/L Normal 98-108 [facility] Comment on above: Performed By: #### P T #### Unless otherwise noted, all testing performed by [place] [address] CLIA: [id number] Couples Therapist: Twin Marley M.D. CO2 molar conc 27 mmol/L Normal 21-32 [facility] Comment on above: Performed By: #### P T #### Unless otherwise noted, all testing performed by [place] [address] CLIA: [id number] Couples Therapist: Twin Marley M.D. Creatinine mass conc 1.13 mg/dL Normal 0.50-1.30 [facility] Comment on above: Performed By: #### P T #### Unless otherwise noted, all testing performed by [place] [address] CLIA: [id number] Couples Therapist: Twin Marley M.D. GFR/1.73 sq M predicted among blacks MDRD vol rate/area (S/P/Bld) mL/min/{1.73_m2} Normal [facility] Comment on above: Result Comment: Afri can [place] GFR Calc Performed By: #### P T #### Unless otherwise noted, all testing performed by [place] [address] CLIA: [id number] Couples Therapist: Twin Marley M.D. GFR/1.73 sq M predicted among non-blacks MDRD vol rate/area (S/P/Bld) mL/min/{1.73_m2} Normal [facility] Comment on above: Result Comment: Non- [...] Unless otherwise noted, all testing performed by [place] [address] CLIA: [id number] Couples Therapist: Twin Marley M.D. Glucose mass conc 116 mg/dL High 70-99 [facility] Comment on above: Result Comment: This test result might be falsely depressed or falsely elevated on samples drawn from patients taking Sulfasalazine and Sulfapyridine. Venipuncture should occur prior to taking either of these drugs. Performed By: #### P T #### Unless otherwise noted, all testing performed by [place] [address] CLIA: [id number] Couples Therapist: Twin Marley M.D. Potassium molar conc 3.9 mmol/L Normal 3.5-5.1 [facility] Comment on above: Performed By: #### P T #### Unless otherwise noted, all testing performed by [place] [address] CLIA: [id number] Couples Therapist: Twin Marley M.D. Sodium molar conc 138 mmol/L Normal 135-145 [facility] Comment on above: Performed By: #### P T #### Unless otherwise noted, all testing performed by [place] [address] CLIA: [id number] Couples Therapist: Twin Marley M.D. Urea nitrogen mass conc 17 mg/dL Normal 8-25 [facility] Comment on above: Performed By: #### P T #### Unless otherwise noted, all testing performed by [place] [address] CLIA: [id number] Couples Therapist: Twin Marley M.D. Blood Smear Reviewon 018 Blood Smear Review See Pathology Report. Normal [facility] Comment on above: Performed By: #### F SBMET #### Unless otherwise noted, all testing performed by [place] [address] CLIA: [id number] Couples Therapist: Twin Marley M.D. CBC with Diffon 09-24-2017 Basophils #/vol (Bld) 0.1 K/mcL Normal 0-0.2 [facility] Comment on above: Performed By: #### F SBMET #### Unless otherwise noted, all testing performed by [place] [address] CLIA: [id number] Couples Therapist: Twin Marley M.D. Basophils/100 WBC (Bld) 0.8 % Normal [facility] Comment on above: Performed By: #### F SBMET #### Unless otherwise noted, all testing performed by [place] [phone] CLIA: [id number] Couples Therapist: Twin Marley M.D. Eosinophils #/vol (Bld) 0.7 K/mcL High 0-0.5 [facility] Comment on above: Performed By: #### F SBMET #### Unless otherwise noted, all testing performed by [place] [address] CLIA: [id number] Couples Therapist: Twin Marley M.D. Eosinophils/100 WBC (Bld) 8.0 % Normal [facility] Comment on above: Performed By: #### F SBMET #### Unless otherwise noted, all testing performed by [place] [address] CLIA: [id number] Couples Therapist: Twin Marley M.D. Erythrocyte distribution width Ratio (RBC) 15.4 % High 10-14.3 [facility] Comment on above: Performed By: #### F SBMET #### Unless otherwise noted, all testing performed by [place] [address] CLIA: [id number] Couples Therapist: Twin Marley M.D. Hematocrit Volume Fraction (Bld) 44.6 % Normal 37.9-49.2 [facility] Comment on above: Performed By: #### F SBMET #### Unless otherwise noted, all testing performed by [place] [address] CLIA: [id number] Couples Therapist: Twin Marley M.D. Hemoglobin mass conc (Bld) 14.8 g/dL Normal 12.9-16.9 [facility] Comment on above: Performed By: #### F SBMET #### Unless otherwise noted, all testing performed by [place] [address] CLIA: [id number] Couples Therapist: Twin Marley M.D. Lymphocytes #/vol (Bld) 3.2 K/mcL Normal 0.9-3.6 O [facility] Comment on above: Performed By: #### F SBMET #### Unless otherwise noted, all testing performed by [place] [address] CLIA: [id number] Couples Therapist: Twin Marley M.D. Lymphocytes/100 WBC (Bld) 35.8 % Normal [facility] Comment on above: Performed By: #### F SBMET #### Unless otherwise noted, all testing performed by [place] [address] CLIA: [id number] Couples Therapist: Twin Marley M.D. MCH Entitic mass (RBC) 28.3 pg Normal 27.7-34.6 [facility] Comment on above: Performed By: #### F SBMET #### Unless otherwise noted, all testing performed by [place] [address] CLIA: [id number] Couples Therapist: Twin Marley M.D. MCHC mass conc (RBC) 33.3 g/dL Normal 32.9-35.5 [facility] Comment on above: Performed By: #### F SBMET #### Unless otherwise noted, all testing performed by [place] [address] CLIA: [id number] Couples Therapist: Twin Marley M.D. MCV Entitic volume (RBC) 84.9 fL Normal 82.8-99.3 [facility] Comment on above: Performed By: #### F SBMET #### Unless otherwise noted, all testing performed by [place] [phone] CLIA: [id number] Couples Therapist: Twin Marley M.D. Monocytes #/vol (Bld) 0.7 K/mcL High 0.2-0.6 [facility] Comment on above: Performed By: #### F SBMET #### Unless otherwise noted, all testing performed by [place] [address] CLIA: [id number] Couples Therapist: Twin Marley M.D. Monocytes/100 WBC (Bld) 7.7 % Normal [facility] Comment on above: Performed By: #### F SBMET #### Unless otherwise noted, all testing performed by [place] [address] CLIA: [id number] Couples Therapist: Twin Marley M.D. Neutrophils #/vol (Bld) 4.2 K/mcL Normal 1.4-6.8 [facility] Comment on above: Performed By: #### F SBMET #### Unless otherwise noted, all testing performed by [place] [address] CLIA: [id number] Couples Therapist: Twin Marley M.D. Platelet mean volume Entitic volume (Bld) 9.0 fL Normal 6.6-10.8 [facility] Comment on above: Performed By: #### F SBMET #### Unless otherwise noted, all testing performed by [place] [phone] CLIA: [id number] Couples Therapist: Twin Marley M.D. Platelets #/vol (Bld) 280 K/mcL Normal 139-354 [facility] Comment on above: Performed By: #### F SBMET #### Unless otherwise noted, all testing performed by [place] [address] CLIA: [id number] Couples Therapist: Twin Marley M.D. RBC #/vol (Bld) 5.25 M/mcL Normal 4.0-5.5 [facility] Comment on above: Performed By: #### F SBMET #### Unless otherwise noted, all testing performed by [place] [address] CLIA: [id number] Couples Therapist: Twin Marley M.D. RBC morphology finding Nom (Bld) Normal Normal Normal [facility] Comment on above: Performed By: #### F SBMET #### Unless otherwise noted, all testing performed by [place] [address] CLIA: [id number] Couples Therapist: Twin Marley M.D. Segmented Neut % 47.7 % Normal [facility] Comment on above: Result Comment: Smea r reviewed to verify automated differential> Performed By: #### F SBMET #### Unless otherwise noted, all testing performed by [place] [address] CLIA: [id number] Couples Therapist: Twin Marley M.D. WBC #/vol (Bld) 8.9 K/mcL Normal 3.6-10.4 [facility] Comment on above: Performed By: #### F SBMET #### Unless otherwise noted, all testing performed by [place] [address] CLIA: [id number] Couples Therapist: Twin Marley M.D. Cardiac Troponin-Ion 09-24-2 018 Troponin I.cardiac mass conc ng/mL Normal < 45.0 [facility] Comment on above: Result Comment: [...] Unless otherwise noted, all testing performed by [place] [address] CLIA: [id number] Couples Therapist: Twin Marley M.D. Troponin I.cardiac mass conc No Biomarker evidence of myocardial injury within the past 14 hours. Normal [facility] Comment on above: Performed By: #### P T #### Unless otherwise noted, all testing performed by [place] [address] CLIA: [id number] Couples Therapist: Twin Marley M.D. Troponin I.cardiac mass conc No Biomarker evidence of myocardial injury within the past 14 hours. Normal [facility] Comment on above: Performed By: #### P T #### Unless otherwise noted, all testing performed by [place] [address] CLIA: [id number] Couples Therapist: Twin Marley M.D. Troponin I.cardiac mass conc ng/mL Normal < 45.0 [facility] Comment on above: Result Comment: [...] Unless otherwise noted, all testing performed by [place] [address] CLIA: [id number] Couples Therapist: Twin Marley M.D. D-Dimeron 09-24-2017 D-Dimer < 0.27 Normal < .5 [facility] Comment on above: Result Comment: This test is intended for use in conjunction with a clinical pretest probability (PTP) assessment model to exclude pulmonary embolism (PE) and deep vein thrombosis (DVT) in outpatients suspected of PE or DVT. Performed By: #### F SBMET #### Unless otherwise noted, all testing performed by [place] [address] CLIA: [id number] Couples Therapist: Tiwn Marley M.D. Magnesiumon 09-24-2017 Magnesium mass conc 2.2 mg/dL Normal 1.6-2.4 [facility] Comment on above: Performed By: #### P T #### Unless otherwise noted, all testing performed by [place] [address] CLIA: [id number] Couples Therapist: Twin Marley M.D. Basic Metabolic Panelon 09-12 Calcium mass conc 8.3 mg/dL Low 8.4-10.2 [facility] Comment on above: Performed By: #### P T #### Unless otherwise noted, all testing performed by [place] [address] CLIA: [id number] Couples Therapist: Twin Marley M.D. Chloride molar conc 109 mmol/L High 98-108 [facility] Comment on above: Performed By: #### P T #### Unless otherwise noted, all testing performed by [place] [address] CLIA: [id number] Couples Therapist: Twin Marley M.D. CO2 molar conc 26 mmol/L Normal 21-32 [facility] Comment on above: Performed By: #### P T #### Unless otherwise noted, all testing performed by [place] [address] CLIA: [id number] Couples Therapist: Twin Marley M.D. Creatinine mass conc 1.12 mg/dL Normal 0.50-1.30 [facility] Comment on above: Performed By: #### P T #### Unless otherwise noted, all testing performed by [facility] [place] [address] CLIA: [id number] Couples Therapist: Twin Marley M.D. GFR/1.73 sq M predicted among blacks MDRD vol rate/area (S/P/Bld) mL/min/{1.73_m2} Normal [facility] Comment on above: Result Comment: Afri can [place] GFR Calc Performed By: #### P T #### Unless otherwise noted, all testing performed by [place] [address] CLIA: [id number] Couples Therapist: Twin Marley M.D. GFR/1.73 sq M predicted among non-blacks MDRD vol rate/area (S/P/Bld) mL/min/{1.73_m2} Normal [facility] Comment on above: Result Comment: Non- [...] Unless otherwise noted, all testing performed by [place] [address] CLIA: [id number] Couples Therapist: Twin Marley M.D. Glucose mass conc 94 mg/dL Normal 70-99 [facility] Comment on above: Result Comment: This test result might be falsely depressed or falsely elevated on samples drawn from patients taking Sulfasalazine and Sulfapyridine. Venipuncture should occur prior to taking either of these drugs. Performed By: #### P T #### Unless otherwise noted, all testing performed by [place] [address] CLIA: [id number] Couples Therapist: Twin Marley M.D. Potassium molar conc 4.0 mmol/L Normal 3.5-5.1 [facility] Comment on above: Performed By: #### P T #### Unless otherwise noted, all testing performed by [place] [address] CLIA: [id number] Couples Therapist: Twin Marley M.D. Sodium molar conc 140 mmol/L Normal 135-145 [facility] Comment on above: Performed By: #### P T #### Unless otherwise noted, all testing performed by [place] [address] CLIA: [id number] Couples Therapist: Twin Marley M.D. Urea nitrogen mass conc 17 mg/dL Normal 8-25 O [facility] Comment on above: Performed By: #### P T #### Unless otherwise noted, all testing performed by [place] [address] CLIA: [id number] Couples Therapist: Twin Marley M.D. CBC w/o Diffon 09-23-2017 Erythrocyte distribution width Ratio (RBC) 15.1 % High 10-14.3 [facility] Comment on above: Performed By: #### P T #### Unless otherwise noted, all testing performed by [place] [address] CLIA: [id number] Couples Therapist: Twin Marley M.D. Hematocrit Volume Fraction (Bld) 46.6 % Normal 37.9-49.2 [facility] Comment on above: Performed By: #### P T #### Unless otherwise noted, all testing performed by [address] [address] CLIA: [id number] Couples Therapist: Twin Marley M.D. Hemoglobin mass conc (Bld) 15.5 g/dL Normal 12.9-16.9 [facility] Comment on above: Performed By: #### P T #### Unless otherwise noted, all testing performed by [place] [address] CLIA: [id number] Couples Therapist: Twin Marley M.D. MCH Entitic mass (RBC) 28.2 pg Normal 27.7-34.6 [facility] Comment on above: Performed By: #### P T #### Unless otherwise noted, all testing performed by [place] [address] CLIA: [id number] Couples Therapist: Twin Marley M.D. MCHC mass conc (RBC) 33.3 g/dL Normal 32.9-35.5 [facility] Comment on above: Performed By: #### P T #### Unless otherwise noted, all testing performed by [place] [address] CLIA: [id number] Couples Therapist: Twin Marley M.D. MCV Entitic volume (RBC) 84.5 fL Normal 82.8-99.3 [facility] Comment on above: Performed By: #### P T #### Unless otherwise noted, all testing performed by [place] [address] CLIA: [id number] Couples Therapist: Twin Marley M.D. Platelet mean volume Entitic volume (Bld) 8.4 fL Normal 6.6-10.8 [facility] Comment on above: Performed By: #### P T #### Unless otherwise noted, all testing performed by [place] [address] CLIA: [id number] Couples Therapist: Twin Marley M.D. Platelets #/vol (Bld) 269 K/mcL Normal 139-354 [facility] Comment on above: Performed By: #### P T #### Unless otherwise noted, all testing performed by [place] [address] CLIA: [id number] Couples Therapist: Twin Marley M.D. RBC #/vol (Bld) 5.52 M/mcL High 4.0-5.5 [facility] Comment on above: Performed By: #### P T #### Unless otherwise noted, all testing performed by [place] [address] CLIA: [id number] Couples Therapist: Twin Marley M.D. WBC #/vol (Bld) 11.3 K/mcL High 3.6-10.4 [facility] Comment on above: Performed By: #### P T #### Unless otherwise noted, all testing performed by [place] [address] CLIA: [id number] Couples Therapist: Twin Marley M.D. CHEST (ONE VIEW ONLY)on 09-12 CHEST (ONE VIEW ONLY) Final Report Accession No: [id number] Performed: Sep 23 2017 4:18PM Examination: CHEST (ONE VIEW ONLY) PORTABLE CHEST: COMPARISON: Two-view chest from 09/11/2017. REASON FOR STUDY: Chest pain. REPORT: The lungs are clear and well aerated. No effusion, nodule or pneumothorax is noted. The diaphragm and bony elements are intact. No infiltrate is noted. IMPRESSION: Nonacute portable chest. Interpreting Physician: BI BAUER D.O. Trans: istumb : cc: Normal [facility] Cardiac Troponin-Ion 018 Troponin I.cardiac mass conc ng/mL Normal < 45.0 [facility] Comment on above: Result Comment: [...] Unless otherwise noted, all testing performed by [place] [address] CLIA: [id number] Couples Therapist: Twin Marley M.D. Troponin I.cardiac mass conc No Biomarker evidence of myocardial injury within the past 14 hours. Normal [facility] Comment on above: Performed By: #### P T #### Unless otherwise noted, all testing performed by [place] [address] CLIA: [id number] Couples Therapist: Twin Marley M.D. Cardiac Troponin-Ion 09-12 Troponin I.cardiac mass conc ng/mL Normal < 45 [facility] Comment on above: Result Comment: [...] Unless otherwise noted, all testing performed by [place] [address] CLIA: [id number] Couples Therapist: Twin Ayaka, M.D. History And Physical-Dictate jessica 09-23-2017 History And Physical-Dictated [facility] Blaine HOFFMANN. [place] [id number] NAME FERNANDO HELTON [facility] [id number] 1970 ADMIT HISTORY AND PHYSICAL CHIEF COMPLAINT Chest pain. HISTORY OF PRESENT ILLNESS 47-year-old male with past medical history of coronary disease, status post FL in 2012, with stent in 2014. Saw [...] Gastrointestinal prophylaxis. MD Pina PRADHAN 09/23/2017 20:41 [id number] T 09/23/2017 21:07 AFS/MODL Electronically Signed By Sofie Daigle M.D. on 27 Sep 2017 19:09:11 GMT Normal [facility] Partial Thromboplastin Timeo n 09-23-2017 aPTT Coag time (Bld) 28 s Normal 23.0-34.0 [facility] Comment on above: Result Comment: Rosemary sauceda therapeutic range for PTT is 68-104 sec. Performed By: #### P T #### Unless otherwise noted, all testing performed by [place] [id number] CLIA: [id number] Couples Therapist: Twin Marley M.D. Protimeon 09-23-2017 INR Coag RelTime (PPP) 0.94 {INR} Normal [facility] Comment on above: Result Comment: The [place] [employer] recommended therapeutic range for Warfarin (Coumadin) therapy goals: PROPHYLAXIS/TREATMENT of: INR Venous Thrombosis, Pulmonary Embolism 2.0-3.0 Prevention of VTE (Orthopedic Surgery) 2.0-3.0 Atrial Fibrillation 2.0-3.0 Myocardial Infarction 2.0-3.0 Mechanical Prosthetic Heart Valves (Aortic position) 2.0-3.0 Mechanical Prosthetic Heart Valves (Mitral Position) 2.5-3.5 [place] [employer] evidence-based clinical practice guidelines. CHEST. 2012 (9th ed) Performed By: #### E DCTNI, PTT, PT, CBCWOD, CHEM8 #### Unless otherwise noted, all testing performed by [place] [address] CLIA: [id number] Couples Therapist: Twin Marley M.D. Prothrombin time (PT) Coag time (PPP) 12.2 s Normal 11.8-14.3 [facility] Comment on above: Performed By: #### E DCTNI, PTT, PT, CBCWOD, CHEM8 #### Unless otherwise noted, all testing performed by [place] [address] CLIA: [id number] Couples Therapist: Twin Marley M.D. Culture, Strep (Throat)on Culture, Strep (Throat) Test Name: Cultu re, Strep (Throat) Culture Status: Final Culture Report: No Group A streptococci isolated. Micro Source: Throat Normal [facility] Comment on above: Performed By: #### S TRCUL #### Unless otherwise noted, all testing performed by [place] [address] CLIA: [id number] Couples Therapist: Twin Marley M.D. FS BNP (B-NatriureticPeptide )on 09-11-2017 Natriuretic peptide B mass conc (Bld) 51.5 pg/mL Normal < 100 [facility] Comment on above: Result Comment: BNP may be falsely elevated in patients taking ENTRESTO. Testing performed at [address]; Medical Science And Operations Officer Orion Gusman M.D. Performed By: #### F SBNP #### Unless otherwise noted, all testing performed by [place] [address] CLIA: [id number] Couples Therapist: Twin Marley M.D. FS Basic Metabolic Panelon 0 09-11-2017 Calcium mass conc 9.2 mg/dL Normal 8.4-10.2 [facility] Comment on above: Performed By: #### F SBMET #### Unless otherwise noted, all testing performed by [place] [address] CLIA: [id number] Couples Therapist: Twin Marley M.D. Chloride molar conc 107 mmol/L Normal 98-108 [facility] Comment on above: Performed By: #### F SBMET #### Unless otherwise noted, all testing performed by [place] [address] CLIA: [id number] Couples Therapist: Twin Marley M.D. CO2 molar conc 26 mmol/L Normal 21-32 [facility] Comment on above: Performed By: #### F SBMET #### Unless otherwise noted, all testing performed by [place] [phone] CLIA: [id number] Couples Therapist: Twin Marley M.D. Creatinine mass conc 1.1 mg/dL Normal 0.50-1.30 [facility] Comment on above: Performed By: #### F SBMET #### Unless otherwise noted, all testing performed by [place] [phone] CLIA: [id number] Couples Therapist: Twin Marley M.D. Glucose mass conc 96 mg/dL Normal 65-99 [facility] Comment on above: Performed By: #### F SBMET #### Unless otherwise noted, all testing performed by [place] [phone] CLIA: [id number] Couples Therapist: Twin Marley M.D. Potassium molar conc 3.9 mmol/L Normal 3.5-5.1 [facility] Comment on above: Performed By: #### F SBMET #### Unless otherwise noted, all testing performed by [place] [address] CLIA: [id number] Couples Therapist: Twin Marely M.D. Sodium molar conc 139 mmol/L Normal 135-145 [facility] Comment on above: Performed By: #### F SBMET #### Unless otherwise noted, all testing performed by [place] [address] CLIA: [id number] Couples Therapist: Twin Marley M.D. Testing performed [facility] Comment on above: Result Comment: Test ing performed at [facility], [address] [place] [address]; Medical Science And Operations Officer Orion Gusman M.D. Performed By: #### F SBMET #### Unless otherwise noted, all testing performed by [place] [address] CLIA: [id number] Couples Therapist: Twin Marley M.D. Urea nitrogen mass conc 15 mg/dL Normal 8-25 [facility] Comment on above: Performed By: #### F SBMET #### Unless otherwise noted, all testing performed by [place] [address] CLIA: [id number] Couples Therapist: Twin Marley M.D. FS CBCon 09-11-2017 Erythrocyte distribution width Ratio (RBC) 15.2 % High 11.6-14.8 [facility] Comment on above: Performed By: #### F SCBC #### Unless otherwise noted, all testing performed by [place] [address] CLIA: [id number] Couples Therapist: Twin Marley M.D. Hematocrit Volume Fraction (Bld) 43.2 % Normal 41.0-53.0 [facility] Comment on above: Performed By: #### F SCBC #### Unless otherwise noted, all testing performed by [place] [address] CLIA: [id number] Couples Therapist: Twin Marley M.D. Hemoglobin mass conc (Bld) 14.2 g/dL Normal 13.5-17.5 [facility] Comment on above: Performed By: #### F SCBC #### Unless otherwise noted, all testing performed by [place] [phone] CLIA: [id number] Couples Therapist: Twin Marley M.D. Lymphocytes #/vol (Bld) 4.2 K/mcL High 0.90-4.00 [facility] Comment on above: Performed By: #### F SCBC #### Unless otherwise noted, all testing performed by [place] [phone] CLIA: [id number] Couples Therapist: Twin Marley M.D. Lymphocytes/100 WBC (Bld) 39.2 % Normal [facility] Comment on above: Performed By: #### F SCBC #### Unless otherwise noted, all testing performed by [place] [address] CLIA: [id number] Couples Therapist: Twin Marley M.D. MCH Entitic mass (RBC) 28.4 pg Normal 26.0-34.0 [facility] Comment on above: Performed By: #### F SCBC #### Unless otherwise noted, all testing performed by [place] [address] CLIA: [id number] Couples Therapist: Twin Marley M.D. MCHC mass conc (RBC) 32.9 g/dL Normal 31.0-37.0 [facility] Comment on above: Performed By: #### F SCBC #### Unless otherwise noted, all testing performed by [place] [address] CLIA: [id number] Couples Therapist: Twin Marley M.D. MCV Entitic volume (RBC) 86.4 fL Normal 80-100 [facility] Comment on above: Performed By: #### F SCBC #### Unless otherwise noted, all testing performed by [place] [address] CLIA: [id number] Couples Therapist: Twin Marley M.D. Neutrophils #/vol (Bld) 5.4 K/mcL Normal 1.70-7.00 [facility] Comment on above: Performed By: #### F SCBC #### Unless otherwise noted, all testing performed by [place] [address] CLIA: [id number] Couples Therapist: Twin Marley M.D. Platelet mean volume Entitic volume (Bld) 11.6 fL Normal 9.0-15.5 [facility] Comment on above: Performed By: #### F SCBC #### Unless otherwise noted, all testing performed by [place] [address] CLIA: [id number] Couples Therapist: Twin Marley M.D. Platelets #/vol (Bld) 271 K/mcL Normal 150-400 [facility] Comment on above: Performed By: #### F SCBC #### Unless otherwise noted, all testing performed by [place] [address] CLIA: [id number] Couples Therapist: Twin Marley M.D. RBC #/vol (Bld) 5.00 M/mcL Normal 4.50-5.90 [facility] Comment on above: Performed By: #### F SCBC #### Unless otherwise noted, all testing performed by [place] [address] CLIA: [id number] Couples Therapist: Twin Marley M.D. Segmented Neut % 49.5 % Normal [facility] Comment on above: Performed By: #### F SCBC #### Unless otherwise noted, all testing performed by [place] [address] CLIA: [id number] Couples Therapist: Twin Marley M.D. Testing performed [facility] FSED Normal [facility] Comment on above: Result Comment: Test ing performed at [address]; Medical Science And Operations Officer Orion Gusman M.D. Performed By: #### F SCBC #### Unless otherwise noted, all testing performed by [place] [address] CLIA: [id number] Couples Therapist: Twin Marley M.D. WBC #/vol (Bld) 10.8 K/mcL Normal 4.5-11.0 [facility] Comment on above: Performed By: #### F SCBC #### Unless otherwise noted, all testing performed by [address] [place], [place] [address] CLIA: [id number] Couples Therapist: Twin Marley M.D. FS D-Dimeron 09-11-2017 FS D-Dimer < 100 Normal < 350 [facility] Comment on above: Result Comment: This test is used as an aid in the assessment and evaluation of patients suspected of having disseminated intravascular coagulation or thromboembolitic events including pulmonary embolism. It should not be used as absolute evidence of PE or DVT. Testing performed at [facility], [address] [place] [address]; Medical Science And Operations Officer Orion Gusman M.D. Performed By: #### F SDDIMR #### Unless otherwise noted, all testing performed by [place] [address] CLIA: [id number] Couples Therapist: Twin Marley M.D. FS Pochi instrument alerton 09-11-2017 FS Pochi instrument alert Invalid Results Normal [facility] Comment on above: Result Comment: Poss ible interfering substances and/or clinically significant abnormalities that require smear review. Recommend re-draw, reordering as CBC w/Diff and sending to [facility] laboratory. Performed By: #### F SPOCHI #### Unless otherwise noted, all testing performed by [place] [address] CLIA: [id number] Couples Therapist: Twin Marley M.D. FS Rapid Strep A Scrnon 08-14 S. pyogenes Ag IA Ql (Unsp spec) Negative Normal Negative [facility] Comment on above: Result Comment: Nega tive rapid antigen tests will be followed-up with a culture. Rapid test procedural control acceptable. Testing performed at [facility], [address] [place] [address]; Medical Science And Operations Officer Orion Gusman M.D. Performed By: #### F SSTREP #### Unless otherwise noted, all testing performed by [facility] [address] [facility]. [place], [place] [address] CLIA: [id number] Couples Therapist: Twin Marley M.D. FS Troponin Ion 09-11-2017 Troponin I.cardiac mass conc ng/mL Normal < 0.05 [facility] Comment on above: Result Comment: Test ing performed at [facility], [address] [place] [address]; Medical Science And Operations Officer Orion Gusman M.D. Performed By: #### F STROPI #### Unless otherwise noted, all testing performed by [place] [id number] CLIA: [id number] Couples Therapist: Twin Marley M.D. Protimeon 09-11-2017 INR Coag RelTime (PPP) CANCEL PER [facility] ED, CREDIT FORM COMPLETED Normal [facility] Comment on above: Result Comment: Comm ent deleted 09/11/2017 18:47 by LEVONENNE: The [employer] recommended therapeutic range for Warfarin (Coumadin) therapy goals: PROPHYLAXIS/TREATMENT of: INR Venous Thrombosis, Pulmonary Embolism 2.0-3.0 Prevention of VTE (Orthopedic Surgery) 2.0-3.0 Atrial Fibrillation 2.0-3.0 Myocardial Infarction 2.0-3.0 Mechanical Prosthetic Heart Valves (Aortic position) 2.0-3.0 Mechanical Prosthetic Heart Valves (Mitral Position) 2.5-3.5 [employer] evidence-based clinical practice guidelines. CHEST. 2012 (9th ed) The [place] [employer] recommended therapeutic range for Warfarin (Coumadin) therapy goals: PROPHYLAXIS/TREATMENT of: INR Venous Thrombosis, Pulmonary Embolism 2.0-3.0 Prevention of VTE (Orthopedic Surgery) 2.0-3.0 Atrial Fibrillation 2.0-3.0 Myocardial Infarction 2.0-3.0 Mechanical Prosthetic Heart Valves (Aortic position) 2.0-3.0 Mechanical Prosthetic Heart Valves (Mitral Position) 2.5-3.5 [employer] [place] evidence-based clinical practice guidelines. CHEST. 2012 (9th ed) Test INR with result of CANCEL PER [place] ED, CREDIT FORM COMPLETED was originally reported as 1.1 and was changed on 09/11/2017 18:47 by JENN Performed By: #### P T #### Unless otherwise noted, all testing performed by [address] [id number] CLIA: [id number] Couples Therapist: Twin Marley M.D. Prothrombin time (PT) Coag time (PPP) CANCEL PER [place] ED, CREDIT FORM COMPLETED Normal 11.8-14.3 [facility] Comment on above: Result Comment: Test Protime with result of CANCEL PER [place] ED, CREDIT FORM COMPLETED was originally reported as 9.6 and was changed on 09/11/2017 18:47 by JENN Performed By: #### P T #### Unless otherwise noted, all testing performed by [place] [id number] CLIA: [id number] Couples Therapist: Twin Marley M.D. Blood Smear Reviewon 017 Blood Smear Review See Pathology Report. [facility] RBC morphology finding Nom (Bld) Normal Normal [facility] CBC and Differentialon 10-26 Basophils #/vol (Bld) 0.1 K/mcL 0 - 0.2 [facility] Basophils/100 WBC (Bld) 0.6 % O [facility] Eosinophils #/vol (Bld) 0.8 K/mcL High 0 - 0.5 O [facility] Eosinophils/100 WBC (Bld) 7.0 % [facility] Erythrocyte distribution width Ratio (RBC) 15.2 % High 10 - 14.3 % [facility] Hematocrit Volume Fraction (Bld) 46.0 % 37.9 - 49.2 % [facility] Hemoglobin mass conc (Bld) 15.3 g/dL 12.9 - 16.9 g/dL [facility] Interpretation and review of laboratory results Abnormal [facility] Lymphocytes #/vol (Bld) 3.9 K/mcL High 0.9 - 3.6 O [facility] Lymphocytes/100 WBC (Bld) 36.3 % [facility] MCH Entitic mass (RBC) 27.6 pg Low 27.7 - 34.6 pg [facility] MCHC mass conc (RBC) 33.2 g/dL 32.9 - 35.5 g/dL [facility] MCV Entitic volume (RBC) 83.1 fL 82. 8 - 99.3 [facility] Monocytes #/vol (Bld) 0.7 K/mcL High 0.2 - 0.6 [facility] Monocytes/100 WBC (Bld) 6.9 % O [facility] Neutrophils #/vol (Bld) 5.3 K/mcL 1.4 - 6.8 O [facility] Platelet mean volume Entitic volume (Bld) 8.9 fL 6.6 - 10.8 [facility] Platelets #/vol (Bld) 260 K/mcL 139 - 354 [facility] RBC #/vol (Bld) 5.53 M/mcL High 4.0 - 5.5 [facility] Segmented Neut 49.2 % [facility] WBC #/vol (Bld) 10.8 K/mcL High 3.6 - 10.4 [facility] CRP, C-Reactive Proteinon CRP - Inflammation 15.2 mg/L High 0 - 10 mg/L [facility] LDHon 10-26-2016 LDH 158 U/L 100 - 250 U/L [facility] Sedimentation Rateon 017 Sed Rate 10 MM/hr. 0 - 15 [facility] CBC and Differentialon 10-12 Basophils #/vol (Bld) 0.1 K/mcL 0 - 0.2 [facility] Basophils/100 WBC (Bld) 0.6 % O [facility] Eosinophils #/vol (Bld) 0.5 K/mcL 0 - 0.5 O [facility] Eosinophils/100 WBC (Bld) 4.3 % [facility] Erythrocyte distribution width Ratio (RBC) 14.8 % High 10 - 14.3 % [facility] Hematocrit Volume Fraction (Bld) 48.0 % 37.9 - 49.2 % [facility] Hemoglobin mass conc (Bld) 15.8 g/dL 12.9 - 16.9 g/dL [facility] Interpretation and review of laboratory results Abnormal [facility] Lymphocytes #/vol (Bld) 4.6 K/mcL High 0.9 - 3.6 O [facility] Lymphocytes/100 WBC (Bld) 36.3 % [facility] MCH Entitic mass (RBC) 27.5 pg Low 27.7 - 34.6 pg [facility] MCHC mass conc (RBC) 33.0 g/dL 32.9 - 35.5 g/dL [facility] MCV Entitic volume (RBC) 83.4 fL 82. 8 - 99.3 [facility] Monocytes #/vol (Bld) 1.0 K/mcL High 0.2 - 0.6 [facility] Monocytes/100 WBC (Bld) 8.2 % O [facility] Neutrophils #/vol (Bld) 6.4 K/mcL 1.4 - 6.8 O [facility] Platelet mean volume Entitic volume (Bld) 9.5 fL 6.6 - 10.8 [facility] Platelets #/vol (Bld) 252 K/mcL 139 - 354 [facility] RBC #/vol (Bld) 5.75 M/mcL High 4.0 - 5.5 [facility] Segmented Neut 50.6 % [facility] WBC #/vol (Bld) 12.7 K/mcL High 3.6 - 10.4 [facility] TSHon 10-12-2016 Thyrotropin Qn 1.58 uIU/mL 0.320 - 5.000 [facility] Vitamin B12 and Folateson Cobalamin (Vitamin B12) mass conc 375 pg/mL 193 - 986 pg/mL [facility] Folate 18.2 ng/mL High 3.1 - 17.5 ng/mL [facility] CBC and Differentialon 09-18 Basophils #/vol (Bld) 0.1 K/mcL 0 - 0.2 [facility] Basophils/100 WBC (Bld) 0.7 % O [facility] Eosinophils #/vol (Bld) 0.5 K/mcL 0 - 0.5 O [facility] Eosinophils/100 WBC (Bld) 5.7 % [facility] Erythrocyte distribution width Ratio (RBC) 14.8 % High 10 - 14.3 % [facility] Hematocrit Volume Fraction (Bld) 46.2 % 37.9 - 49.2 % [facility] Hemoglobin mass conc (Bld) 15.5 g/dL 12.9 - 16.9 g/dL [facility] Interpretation and review of laboratory results Abnormal [facility] Lymphocytes #/vol (Bld) 3.2 K/mcL 0.9 - 3.6 O [facility] Lymphocytes/100 WBC (Bld) 33.3 % [facility] MCH Entitic mass (RBC) 27.9 pg 27.7 - 34.6 pg [facility] MCHC mass conc (RBC) 33.6 g/dL 32.9 - 35.5 g/dL [facility] MCV Entitic volume (RBC) 83.2 fL 82. 8 - 99.3 [facility] Monocytes #/vol (Bld) 0.7 K/mcL High 0.2 - 0.6 [facility] Monocytes/100 WBC (Bld) 7.3 % O [facility] Neutrophils #/vol (Bld) 5.1 K/mcL 1.4 - 6.8 O [facility] Platelet mean volume Entitic volume (Bld) 8.8 fL 6.6 - 10.8 [facility] Platelets #/vol (Bld) 252 K/mcL 139 - 354 [facility] RBC #/vol (Bld) 5.56 M/mcL High 4.0 - 5.5 [facility] Segmented Neut 53.0 % [facility] WBC #/vol (Bld) 9.6 K/mcL 3.6 - 10.4 [facility] Comprehensive Metabolic Pane sangeetha 09-18-2016 Albumin mass conc 4.4 g/dL 3.5 - 5 g/dL [facility] ALP enzyme act/vol 69 U/L 25 - 100 U/L [facility] ALT enzyme act/vol 22 U/L 10 - 40 U/L [facility] Comment on above: This test result urban ht be falsely depressed or falsely elevated on samples drawn from patients taking Sulfasalazine and Sulfapyridine. Venipuncture should occur prior to taking either of these drugs. AST enzyme act/vol 19 U/L 10 - 40 U/L [facility] Bilirubin mass conc 0.8 mg/dL 0.3 - 1. 2 mg/dL [facility] Calcium mass conc 9.4 mg/dL 8.4 - 10.2 mg/dL [facility] Chloride molar conc 106 mmol/L 99 - 111 mmol/L [facility] CO2 molar conc 25 mmol/L 23 - 32 mmol/L [facility] Creatinine mass conc 0.98 mg/dL 0.6 - 1 .2 mg/dL [facility] GFR/1.73 sq M predicted among blacks MDRD vol rate/area (S/P/Bld) mL/min/{1.73_m2} ml/min/1.7 3sq.m [facility] GFR/1.73 sq M predicted among non-blacks MDRD vol rate/area (S/P/Bld) mL/min/{1.73_m2} ml/min/1.7 3sq.m [facility] Comment on above: eGFR is an estimated [...] 108 mg/dL High 70 - 99 mg/dL [facility] Potassium molar conc 4.3 mmol/L 3.5 - 5 .1 mmol/L [facility] Protein mass conc 6.9 g/dL 6.4 - 8.3 g/dL [facility] Sodium molar conc 139 mmol/L 136 - 145 mmol/L [facility] Urea nitrogen mass conc 16 mg/dL 6 - 20 mg/dL [facility] Lipid Panelon 09-18-2016 Cholesterol in HDL mass conc 43 mg/dL 28 - 75 mg/dL [facility] Cholesterol in LDL mass conc 105 mg/dL <130 [facility] Cholesterol in VLDL mass conc 30 mg/dL 5 - 40 mg/dL [facility] Cholesterol mass conc 178 mg/dL 112 - 200 mg/dL [facility] Cholesterol.total/Choles terol in HDL mass ratio 4.1 {ratio} 3.3 - 5.0 [facility] Comment on above: Male Coronary Heart Disease Risk Factor (CHDRF): Average risk= 5.0 1/2 Average risk= 3.4 2 times Average risk= 9.6 Triglyceride mass conc 151 mg/dL High 35 - 150 mg/dL [facility] T4, Freeon 09-18-2016 T4 free mass conc 1.37 ng/dL 0.76 - 1.79 ng/dL [facility] TSHon 09-18-2016 Thyrotropin Qn 0.714 uIU/mL 0.350 - 5.500 [facility] Comment on above: Please note that Flu [...] Diastolic blood pressure 94 mm[Hg] DO Jasen OrellanaSpottly Work Phone: [facility] 12-07-2022 18:38-0400 Heart rate 95 /min DO Jasen [employer] Work Phone: [facility] 12-07-2022 18:38-0400 Respiratory rate 20 /min DO Jasen OrellanaSpottly Work Phone: [facility] 12-07-2022 18:38-0400 SaO2% (BldA) [Mass fraction] 94 % DO Jasen Campbell Work Phone: [facility] 12-07-2022 18:38-0400 Systolic blood pressure 172 mm[Hg] DO Jasen Campbell Work Phone: [facility] 12-07-2022 14:28-0400 Body temperature 98.4 [degF] DO Jasen Campbell Work Phone: [facility] 12-07-2022 13:37-0400 Body height 167.64 cm DO Jasen Campbell Work Phone: [facility] 12-07-2022 13:37-0400 Body weight 113.8 kg DO Jasen Campbell Work Phone: [facility] 12-27-2021 07:16-0500 Body height 165.1 cm Moises Patel MD Work Phone: [facility] 12-27-2021 07:16-0500 Body mass index (BMI) [Ratio] 42.7 kg/m2 Moises Patel MD Work Phone: [facility] [employer] [facility] 12-27-2021 07:16-0500 Body weight 116.39 kg [facility]ises [facility]el [facility] 12-27-2021 07:16-0500 Diastolic blood pressure 88 mm[Hg] Moises Patel MD Work Phone: [employer] [facility] 12-27-2021 07:16-0500 Heart rate 75 /min Moises Patel MD Work Phone: [employer] [facility] 12-27-2021 07:16-0500 SaO2% (BldA) [Mass fraction] 95 % Moises Patel MD Work Phone: [employer] 12-27-2021 07:16-0500 Systolic blood pressure 132 mm[Hg] Moises Patel MD Work Phone: [employer] [facility] 09-15-2020 09:03-0400 Body height 165.1 cm Moises Patel MD Work Phone: [employer] 09-15-2020 09:03-0400 Body mass index (BMI) [Ratio] 47.93 kg/m2 Moises Patel MD Work Phone: [employer] [facility] 09-15-2020 09:03-0400 Body temperature 97.81 [degF] Moises Patel MD Work Phone: [employer] [facility] 09-15-2020 09:03-0400 Body weight 130.64 kg Moises Patel MD Work Phone: [employer] [facility] 09-15-2020 09:03-0400 Diastolic blood pressure 92 mm[Hg] Moises Patel MD Work Phone: [employer] [facility] 09-15-2020 09:03-0400 Heart rate 80 /min Moises Patel MD Work Phone: [employer] [facility] 09-15-2020 09:03-0400 SaO2% (BldA) [Mass fraction] 94 % Moises Patel MD Work Phone: [employer] [facility] 09-15-2020 09:03-0400 Systolic blood pressure 138 mm[Hg] Moises Patel MD Work Phone: [employer] 06-02-2020 08:21-0400 Body height 167.6 cm Anita Rowland MD Work Phone: [facility] 06-02-2020 08:21-0400 Body mass index (BMI) [Ratio] 46 kg/m2 Anita Rowland MD Work Phone: [facility] 06-02-2020 08:21-0400 Body weight 129.28 kg Anita Rowland MD Work Phone: [facility] 06-02-2020 08:12-0400 Body temperature 98.01 [degF] Anita Rowland MD Work Phone: [facility] 06-02-2020 08:12-0400 Diastolic blood pressure 82 mm[Hg] Anita Rowland MD Work Phone: [facility] 06-02-2020 08:12-0400 Heart rate 74 /min Anita Rowland MD Work Phone: [facility] 06-02-2020 08:12-0400 Respiratory rate 16 /min Anita Rowland MD Work Phone: [facility] 06-02-2020 08:12-0400 SaO2% (BldA) [Mass fraction] 93 % Anita Rowland MD Work Phone: [facility] 06-02-2020 08:12-0400 Systolic blood pressure 117 mm[Hg] Anita Rowland MD Work Phone: [facility] 05-28-2020 16:05-0400 Body height 167.6 cm Anita Rowland MD Work Phone: [facility] 05-28-2020 16:05-0400 Body mass index (BMI) [Ratio] 43.28 kg/m2 Anita Rowland MD Work Phone: [facility] 05-28-2020 16:05-0400 Body weight 121.56 kg Anita Rowland MD Work Phone: [facility] 05-28-2020 16:05-0400 Diastolic blood pressure 88 mm[Hg] Anita Rowland MD Work Phone: [facility] 05-28-2020 16:05-0400 Heart rate 78 /min Anita Rowland MD Work Phone: [facility] 05-28-2020 16:05-0400 SaO2% (BldA) [Mass fraction] 96 % Anita Rowland MD Work Phone: [facility] 05-28-2020 16:05-0400 Systolic blood pressure 149 mm[Hg] Anita Rowland MD Work Phone: [facility] 05-28-2020 07:59-0400 Body height 167.6 cm Anita Rowland MD Work Phone: [facility] 05-28-2020 07:59-0400 Body mass index (BMI) [Ratio] 42.01 kg/m2 Anita Rowland MD Work Phone: [facility] 05-28-2020 07:59-0400 Body weight 118 kg Anita Rowland MD Work Phone: [facility] 05-28-2020 07:59-0400 Diastolic blood pressure 79 mm[Hg] Anita Rowland MD Work Phone: [facility] 05-28-2020 07:59-0400 Heart rate 80 /min Anita Rowland MD Work Phone: [facility] 05-28-2020 07:59-0400 Systolic blood pressure 123 mm[Hg] Anita Rowland MD Work Phone: [facility] 10-16-2019 15:34-0400 BP Diastolic 90 mm[Hg] [facility] 10-16-2019 15:34-0400 BP Systolic 137 mm[Hg] [facility] 10-16-2019 15:34-0400 Pulse (Heart Rate) 102 /min [facility] 10-16-2019 15:34-0400 Pulse Oximetry 100 % [facility] 10-16-2019 12:05-0400 Body Temperature 97.59 [degF] [facility] 10-16-2019 12:05-0400 Respiratory Rate 16 /min [facility] 10-16-2019 01:23-0400 BMI (Body Mass Index) 41.99 kg/m2 [facility] 10-16-2019 01:23-0400 Body weight 118 kg [facility] 10-16-2019 01:23-0400 Height 167.6 cm [facility] 10-15-2019 14:06-0400 BMI (Body Mass Index) 42.79 kg/m2 Anita Rowland [facility] 10-15-2019 14:06-0400 Body weight 120.25 kg Anita Etiennedavid [facility] 10-15-2019 14:06-0400 BP Diastolic 85 mm[Hg] Anita Jaimiedavid [facility] 10-15-2019 14:06-0400 BP Systolic 142 mm[Hg] Anita Jaimiedavid [facility] 10-15-2019 14:06-0400 Height 167.6 cm Anita Eatdavid [facility] 10-15-2019 14:06-0400 Pulse (Heart Rate) 83 /min Anita Rowland [facility] 10-15-2019 14:06-0400 Pulse Oximetry 95 % Anita Rowland [facility] 09-23-2019 13:07-0400 BP Diastolic 104 mm[Hg] [facility] 09-23-2019 13:07-0400 BP Systolic 155 mm[Hg] [facility] 09-23-2019 13:07-0400 Pulse (Heart Rate) 65 /min [facility] 09-23-2019 13:01-0400 Pulse Oximetry 97 % [facility] 09-23-2019 11:28-0400 Respiratory Rate 16 /min [facility] 09-23-2019 08:44-0400 Body Temperature 97.81 [degF] [facility] 09-22-2019 12:02-0400 BMI (Body Mass Index) 43.66 kg/m2 [facility] 09-22-2019 12:02-0400 Body weight 122.7 kg [facility] 09-22-2019 12:02-0400 Height 167.6 cm [facility] 04-03-2019 15:09-0500 BMI (Body Mass Index) 41.97 kg/m2 [facility] 04-03-2019 15:09-0500 Body weight 117.94 kg [facility] 04-03-2019 15:09-0500 BP Diastolic 85 mm[Hg] [facility] 04-03-2019 15:09-0500 BP Systolic 130 mm[Hg] [facility] 04-03-2019 15:09-0500 Height 167.6 cm [facility] 04-03-2019 15:09-0500 Pulse (Heart Rate) 86 /min [facility] 04-03-2019 15:09-0500 Pulse Oximetry 95 % [facility] 03-11-2019 08:19-0500 BP Diastolic 66 mm[Hg] Torie Westbrook [facility] 03-11-2019 08:19-0500 BP Systolic 122 mm[Hg] Torie Abbottluba [facility] 02-26-2019 13:19-0500 BMI (Body Mass Index) 38.82 kg/m2 Kristin [facility] 02-26-2019 13:19-0500 Body Temperature 98.4 [degF] Kristin [facility] 02-26-2019 13:19-0500 Body weight 109.09 kg Kristin [facility] 02-26-2019 13:19-0500 BP Diastolic 88 mm[Hg] Kristin [facility] 02-26-2019 13:19-0500 BP Systolic 129 mm[Hg] Kristin [facility] 02-26-2019 13:19-0500 Height 167.6 cm Kristin [facility] 02-26-2019 13:19-0500 Pulse (Heart Rate) 93 /min Kristin [facility] 02-26-2019 13:19-0500 Pulse Oximetry 93 % Kristin [facility] 02-26-2019 13:19-0500 Respiratory Rate 16 /min Kristin [facility] 02-26-2019 00:00-0500 BP Diastolic 78 mm[Hg] [facility] 02-26-2019 00:00-0500 BP Systolic 122 mm[Hg] [facility] 02-26-2019 00:00-0500 Pulse (Heart Rate) 79 /min [facility] 02-26-2019 00:00-0500 Pulse Oximetry 97 % [facility] 02-26-2019 00:00-0500 Respiratory Rate 18 /min [facility] 02-25-2019 20:32-0500 BMI (Body Mass Index) 38.25 kg/m2 [facility] 02-25-2019 20:32-0500 Body Temperature 98.01 [degF] [facility] 02-25-2019 20:32-0500 Body weight 107.5 kg [facility] 02-25-2019 20:32-0500 Height 167.6 cm [facility] 02-21-2019 09:10-0500 BMI (Body Mass Index) 39.22 kg/m2 Kristin [facility] 02-21-2019 09:10-0500 Body Temperature 97.81 [degF] Kristin [facility] 02-21-2019 09:10-0500 Body weight 110.22 kg Kristin [facility] 02-21-2019 09:10-0500 BP Diastolic 84 mm[Hg] Kristin Walker [facility] 02-21-2019 09:10-0500 BP Systolic 128 mm[Hg] rKistin Walker [facility] 02-21-2019 09:10-0500 Height 167.6 cm Kristin [facility] 02-21-2019 09:10-0500 Pulse (Heart Rate) 77 /min Kristin [facility] 02-21-2019 09:10-0500 Pulse Oximetry 97 % Kristin [facility] 02-13-2019 09:07-0500 BMI (Body Mass Index) 39.38 kg/m2 Kristin [facility] 02-13-2019 09:07-0500 Body Temperature 97.5 [degF] Kristin [facility] 02-13-2019 09:07-0500 Body weight 110.68 kg Kristin [facility] 02-13-2019 09:07-0500 BP Diastolic 78 mm[Hg] Kristin [facility] 02-13-2019 09:07-0500 BP Systolic 115 mm[Hg] Kristin [facility] 02-13-2019 09:07-0500 Height 167.6 cm Kristin [facility] 02-13-2019 09:07-0500 Pulse (Heart Rate) 76 /min Kristin [facility] 02-13-2019 09:07-0500 Pulse Oximetry 95 % Kristin [facility] 02-06-2019 13:05-0500 BMI (Body Mass Index) 39.59 kg/m2 [facility] 13:05-0500 Body Temperature 98.2 [degF] Jacob [facility] 02-06-2019 13:05-0500 Body weight 111.27 kg [facility] 02-06-2019 13:05-0500 BP Diastolic 81 mm[Hg] [facility] 02-06-2019 13:05-0500 BP Systolic 124 mm[Hg] [facility] 13:05-0500 Height 167.6 cm Jacob [facility] 02-06-2019 13:05-0500 Pulse (Heart Rate) 97 /min Jacob [facility] 02-06-2019 13:05-0500 Pulse Oximetry 95 % Jacob Cam [facility] 02-06-2019 13:05-0500 Respiratory Rate 17 /min Jacob Cam [facility] 02-04-2019 07:45-0500 Body Temperature 98.1 [degF] [facility] 02-04-2019 07:45-0500 BP Diastolic 91 mm[Hg] [facility] 02-04-2019 07:45-0500 BP Systolic 129 mm[Hg] [facility] 02-04-2019 07:45-0500 Pulse (Heart Rate) 90 /min [facility] 02-04-2019 07:45-0500 Pulse Oximetry 94 % [facility] 02-04-2019 07:45-0500 Respiratory Rate 16 /min [facility] [facility] 02-04-2019 05:58-0500 BMI (Body Mass Index) 38.8 kg/m2 [facility] 02-04-2019 05:58-0500 Body weight 109.05 kg [facility] 02-02-2019 18:07-0500 Height 167.6 cm [facility] 02-02-2019 12:08-0500 Respiratory rate 0 /min [facility] 01-31-2019 09:19-0500 BMI (Body Mass Index) 40.66 kg/m2 Kristin [facility] 01-31-2019 09:19-0500 Body Temperature 98.1 [degF] Kristin [facility] 01-31-2019 09:19-0500 Body weight 114.26 kg Kristin [facility] 01-31-2019 09:19-0500 BP Diastolic 89 mm[Hg] Kristin Walker [facility] 01-31-2019 09:19-0500 BP Systolic 123 mm[Hg] Kristin Walker [facility] 01-31-2019 09:19-0500 Height 167.6 cm Kristin [facility] 01-31-2019 09:19-0500 Pulse (Heart Rate) 93 /min Kristin [facility] 01-31-2019 09:19-0500 Pulse Oximetry 94 % Kristin [facility] 01-31-2019 09:19-0500 Respiratory Rate 16 /min Kristin [facility] 01-29-2019 11:46-0500 Body Temperature 97.81 [degF] [facility] 01-29-2019 11:46-0500 BP Diastolic 78 mm[Hg] [facility] 01-29-2019 11:46-0500 BP Systolic 135 mm[Hg] [facility] 01-29-2019 11:46-0500 Pulse (Heart Rate) 83 /min [facility] 01-29-2019 11:46-0500 Pulse Oximetry 95 % [facility] 01-29-2019 11:46-0500 Respiratory Rate 18 /min [facility] 01-29-2019 05:40-0500 BMI (Body Mass Index) 39.86 kg/m2 [facility] 01-29-2019 05:40-0500 Body weight 112.5 kg [facility] Comment on above: standing scale 01-25-2019 13:34-0500 Respiratory rate 0 /min [facility] 01-24-2019 13:25-0500 Respiratory rate 0 /min [facility] 01-24-2019 11:46-0500 Respiratory rate 12 /min [facility] 01-24-2019 10:43-0500 Respiratory rate 12 /min [facility] 01-24-2019 05:00-0500 Height 168 cm [facility] 01-20-2019 10:22-0500 Respiratory rate 0 /min [facility] 01-04-2019 16:55-0500 BMI (Body Mass Index) 40.35 kg/m2 [facility] 01-04-2019 16:55-0500 Body Temperature 97.9 [degF] [facility] 01-04-2019 16:55-0500 Body weight 113.[address] [facility] 01-04-2019 16:55-0500 BP Diastolic 88 mm[Hg] [facility] 01-04-2019 16:55-0500 BP Systolic 137 mm[Hg] [facility] 01-04-2019 16:55-0500 Height 167.[address] [facility] 01-04-2019 16:55-0500 Pulse (Heart Rate) 79 /min [facility] 01-04-2019 16:55-0500 Pulse Oximetry 98 % [facility] 01-04-2019 16:55-0500 Respiratory Rate 14 /min [facility] 12-26-2018 15:50-0500 BMI (Body Mass Index) 40.51 kg/m2 [facility] 12-26-2018 15:50-0500 Body weight 113.85 kg [facility] 12-26-2018 15:50-0500 BP Diastolic 87 mm[Hg] [facility] 12-26-2018 15:50-0500 BP Systolic 125 mm[Hg] [facility] 12-26-2018 15:50-0500 Height 167.6 cm [facility] 12-26-2018 15:50-0500 Pulse (Heart Rate) 98 /min [facility] 12-26-2018 15:50-0500 Pulse Oximetry 97 % [facility] 09-27-2018 22:00-0400 BP Diastolic 96 mm[Hg] [facility] 09-27-2018 22:00-0400 BP Systolic 146 mm[Hg] [facility] 09-27-2018 22:00-0400 Pulse (Heart Rate) 91 /min [facility] 09-27-2018 22:00-0400 Respiratory Rate 26 /min [facility] 09-27-2018 19:30-0400 Pulse Oximetry 95 % [facility] 09-27-2018 19:07-0400 BMI (Body Mass Index) 37.12 kg/m2 [facility] 09-27-2018 19:07-0400 Body Temperature 98.49 [degF] [facility] 09-27-2018 19:07-0400 Body weight 104.33 kg [facility] 09-27-2018 19:07-0400 Height 167.6 cm [facility] 01-07-2018 10:29-0500 BMI (Body Mass Index) 37.93 kg/m2 Patricia Louis [facility] 01-07-2018 10:29-0500 BP Diastolic 80 mm[Hg] Patricia Sruthi [facility] 01-07-2018 10:29-0500 BP Systolic 124 mm[Hg] Patricia Louis [facility] 01-07-2018 10:29-0500 Height 167.6 cm Patricia Louis [facility] 01-07-2018 10:29-0500 Pulse (Heart Rate) 78 /min Patricia Bowersx [facility] 01-07-2018 10:29-0500 Pulse Oximetry 96 % Patricia Bowersx [facility] 01-07-2018 10:29-0500 Weight 106.59 kg Patricia Louis [facility] 09-20-2017 15:31-0400 BMI (Body Mass Index) 36.48 kg/m2 Patricia Bowersx [facility] 09-20-2017 15:31-0400 BP Diastolic 80 mm[Hg] Particia Sruthi [facility] 09-20-2017 15:31-0400 BP Systolic 145 mm[Hg] Patricia Sruthi [facility] 09-20-2017 15:31-0400 Height 167.6 cm Patricia Bowersx [facility] 09-20-2017 15:31-0400 Pulse (Heart Rate) 72 /min Patricia Louis [facility] 09-20-2017 15:31-0400 Pulse Oximetry 95 % Patricia Louis [facility] 09-20-2017 15:31-0400 Weight 102.51 kg Patricia Louis [facility] 12-08-2016 11:05-0400 BMI (Body Mass Index) 34.33 kg/m2 Bev Tolentino [facility] Work Phone: 12-08-2016 11:05-0400 BP Diastolic 96 mm[Hg] Bev Exten [facility] Work Phone: 12-08-2016 11:05-0400 BP Systolic 143 mm[Hg] Bev Exten [facility] Work Phone: 12-08-2016 11:05-0400 Height 167.6 cm Bev Tolentino [facility] Work Phone: 12-08-2016 11:05-0400 Pulse (Heart Rate) 69 /min Bev Exten [facility] Work Phone: 12-08-2016 11:05-0400 Weight 96.48 kg Bev Tolentino [employer] Work Phone: 11-23-2016 10:32-0400 BMI (Body Mass Index) 32.51 kg/m2 Bev Tolentino [employer] Work Phone: 11-23-2016 10:32-0400 BP Diastolic 93 mm[Hg] Bev Tolentino [employer] Work Phone: 11-23-2016 10:32-0400 BP Systolic 121 mm[Hg] Bev Tolentino [employer] Work Phone: 11-23-2016 10:32-0400 Height 170.2 cm Bev Tolentino [employer] Work Phone: 11-23-2016 10:32-0400 Pulse (Heart Rate) 78 /min Bev Tolentino [employer] Work Phone: 11-23-2016 10:32-0400 Weight 94.17 kg Bev Tolentino [employer] Work Phone: 11-02-2016 10:00-0400 BMI (Body Mass Index) 34.07 kg/m2 Bev Tolentino [employer] Work Phone: 11-02-2016 10:00-0400 BP Diastolic 92 mm[Hg] Bev Tolentino [employer] Work Phone: 11-02-2016 10:00-0400 BP Systolic 135 mm[Hg] Bev Tolentino [employer] Work Phone: 11-02-2016 10:00-0400 Height 167.6 cm Bev Tolentino [employer] Work Phone: 11-02-2016 10:00-0400 Pulse (Heart Rate) 63 /min Bev Tolentino [employer] Work Phone: 11-02-2016 10:00-0400 Weight 95.75 kg Bev Tolentino [employer] Work Phone: 10-26-2016 14:00-0400 Body mass index (BMI) [Ratio] Bev Tolentino [facility] 10-26-2016 09:58-0400 BMI (Body Mass Index) 35.72 kg/m2 Bev Tolentino [employer] Work Phone: 10-26-2016 09:58-0400 BP Diastolic 88 mm[Hg] Bev Tolentino [employer] Work Phone: 10-26-2016 09:58-0400 BP Systolic 133 mm[Hg] Bev Tolentino [employer] Work Phone: 10-26-2016 09:58-0400 Height 167.6 cm Bev Tolentino [employer] Work Phone: 10-26-2016 09:58-0400 Pulse (Heart Rate) 68 /min Bev Tolentino [employer] Work Phone: 10-26-2016 09:58-0400 Weight 100.38 kg Bev Tolentino [employer] Work Phone: 09-18-2016 08:56-0400 BMI (Body Mass Index) 33.89 kg/m2 Patricia Louis [employer] Work Phone: 09-18-2016 08:56-0400 BP Diastolic 76 mm[Hg] Patricia Sruthi [employer] Work Phone: 09-18-2016 08:56-0400 BP Systolic 124 mm[Hg] Patricia Louis [employer] Work Phone: 09-18-2016 08:56-0400 Height 167.6 cm Patricia Louis [employer] Work Phone: 09-18-2016 08:56-0400 Pulse (Heart Rate) 68 /min Patricia Sruthi [employer] Work Phone: 09-18-2016 08:56-0400 Pulse Oximetry 94 % Patricia Sruthi [employer] Work Phone: 09-18-2016 08:56-0400 Weight 95.25 kg Patricia Bowersx [employer] Work Phone: Encounters Encounter Date Encounter Type Care Provider Facility Start: 12-07-2022 End: 12-07-2022 Emergency department patient visit Jasen Campbell Facility:[facility] Start: 12-07-2022 End: 12-07-2022 Emergency department patient visit DO Jasen Campbell Work Phone: [facility] Work Phone: Start: 06-20-2022 End: 06-20-2022 Emergency department patient visit MOISES AGUILERA AMANDA [facility] Start: 06-01-2022 Refill Anita Rowland MD Work Phone: [facility] Comment on above: Medication Refill Start: 03-06-2022 Documentation procedure Cassia hernandez MA [facility] Start: 02-14-2022 Refill Tiffany Leo RN [facility] Comment on above: Medication Refill Start: 01-22-2022 Refill Anita Rowland MD Work Phone: [facility] Comment on above: Medication Refill Start: 12-27-2021 ambulatory [facility] Start: 12-27-2021 End: 12-27-2021 Office outpatient visit 25 minutes Moises Patel MD Work Phone: [facility] Comment on above: Inadequately control led diabetes mellitus (Primary Dx); Insomnia, unspecified type Start: 11-06-2021 End: 11-09-2021 Evaluation and management of inpatient [facility] Start: 10-30-2021 End: 10-30-2021 Emergency department patient visit MOISES AGUILERA [facility] Start: 10-23-2021 Refill Anita Rowland MD Work Phone: [facility] Comment on above: Medication Refill Start: 10-21-2021 Refill Anita Rowland MD Work Phone: [facility] Comment on above: Medication Refill Start: 10-19-2021 Refill Anita Rwoland MD Work Phone: [facility] Comment on above: Medication Refill Start: 10-11-2021 Refill Anita Rowland MD Work Phone: [facility] Comment on above: Medication Refill Start: 07-06-2021 Refill Tiffany Leo RN [facility] Comment on above: Medication Refill Start: 05-23-2021 Refill Anita Rowland MD Work Phone: [facility] Comment on above: Medication Refill Start: 03-28-2021 ambulatory MELINDA TERRELL FERNANDEZ [facility] Start: 01-17-2021 Refill Tiffany Leo RN [facility] Comment on above: Medication Refill Start: 09-15-2020 End: 09-15-2020 Office outpatient visit 25 minutes Moises Patel MD Work Phone: [facility] Comment on above: Chronic obstructive pulmonary disease with acute exacerbation (Primary Dx); COPD with acute exacerbation Start: 08-19-2020 End: 08-19-2020 Refill Tiffany Leo RN [facility] Comment on above: Medication Refill Start: 08-06-2020 End: 08-06-2020 Refill Anita Rowland MD Work Phone: [facility] Comment on above: Medication Refill Start: 08-06-2020 End: 08-06-2020 Subsequent hospital visit by physician Anita Rowland MD Work Phone: [facility] Comment on above: Arrived Start: 06-10-2020 End: 06-10-2020 ambulatory MOISES PATEL [facility] Ambulatory Start: 06-10-2020 End: 06-10-2020 Clinical Support Cassandra Stewart RN [facility] Comment on above: Other specified comp lications of surgical and medical care, not elsewhere classified, initial encounter (Primary Dx) Arrived Medication Refill Start: 06-02-2020 End: 06-02-2020 Subsequent hospital visit by physician Anita Rowland MD Work Phone: [facility] Start: 05-28-2020 End: 06-01-2020 ambulatory ANITA ROWLAND [facility]ula tor Start: 05-28-2020 End: 05-28-2020 Office outpatient visit 40 minutes Anita Rowland MD Work Phone: [facility] Comment on above: Essential hypertensi on (Primary Dx); Mixed hyperlipidemia; Coronary artery disease involving [place] coronary artery of [place] heart without angina pectoris; PAD (peripheral artery disease) (HCC); Centrilobular emphysema (HCC); ISAC (obstructive sleep apnea); Nicotine abuse; Pre-procedure lab exam; Abnormal stress test Start: 05-28-2020 End: 05-28-2020 Patient encounter status Anita Rowland MD Work Phone: [facility] Start: 05-28-2020 End: 05-28-2020 Subsequent hospital visit by physician Anita Rowland MD Work Phone: [facility] Comment on above: Arrived Start: 05-23-2020 End: 05-23-2020 Patient encounter procedure MOISES [facility] Start: 05-18-2020 End: 05-18-2020 Orders Only Tiffany Leo [facility] Comment on above: Pre-procedure lab ex am (Primary Dx) Start: 04-21-2020 End: 04-21-2020 Orders Only Alicja Nieves Work Phone: [facility] Start: 04-13-2020 End: 04-13-2020 Refill Tiffany Leo [facility] Comment on above: Medication Refill Start: 04-12-2020 End: 04-12-2020 Refill Rubi Pratt [facility] Comment on above: Medication Refill Start: 12-05-2019 End: 12-05-2019 Patient encounter procedure MOISES AGUILERA [facility] Start: 10-17-2019 End: 10-17-2019 Documentation procedure Rubi Pratt [facility] Start: 10-16-2019 End: 10-16-2019 Subsequent hospital visit by physician Anita Rowland Work Phone: [facility] Comment on above: TIA (transient ische gustavo attack) Start: 10-15-2019 End: 10-16-2019 Emergency department patient visit Andreas Barfield Work Phone: [facility] Med Surg Comment on above: Near syncope (Primar y Dx) Start: 10-15-2019 End: 10-15-2019 Office outpatient visit 25 minutes Anita Rowland Work Phone: [facility] Comment on above: TIA (transient ische gustavo attack) (Primary Dx); Essential hypertension; Mixed hyperlipidemia; Coronary artery disease involving [place] coronary artery of [place] heart without angina pectoris; Centrilobular emphysema (HCC); ISAC on CPAP; Nicotine abuse Start: 09-22-2019 Patient encounter procedure MOISES AGUILERA [facility] Start: 09-22-2019 End: 09-23-2019 Emergency department patient visit Ana Ruizjanki Weaver Work Phone: [facility] Intermediate Comment on above: Acute CVA (cerebrova scular accident) (HCC) (Primary Dx) Start: 04-03-2019 End: 04-03-2019 Office outpatient visit 15 minutes Carlo Mercedes Work Phone: [facility] Comment on above: Medication managemen t (Primary Dx); Coronary artery disease, angina presence unspecified, unspecified vessel or lesion type, unspecified whether [place]oy[place] or transplanted heart Start: 03-17-2019 End: 03-17-2019 Patient encounter procedure Carlo Mercedes Work Phone: [facility] Card[facility] Pulmonary Rehab Comment on above: S/P CABG (coronary a rtery bypass graft) (Primary Dx) Start: 03-13-2019 End: 03-13-2019 Subsequent hospital visit by physician Carlo Mercedes Work Phone: [facility] Comment on above: Arrived Start: 03-11-2019 End: 03-11-2019 Patient encounter procedure Kristin Walker Work Phone: [facility] Comment on above: S/P CABG (coronary a rtery bypass graft) (Primary Dx) Start: 03-10-2019 Refill Kristin lopez PA-C Work Phone: [facility] Comment on above: Medication Refill Start: 03-05-2019 End: 03-05-2019 Documentation procedure Kristinkyler Walker Work Phone: [facility] Start: 02-26-2019 End: 02-26-2019 Postop follow up visit related to original px Kristin Walkergabrielle Walker Work Phone: [facility] Comment on above: S/P CABG (coronary a rtery bypass graft) (Primary Dx) Start: 02-25-2019 End: 02-26-2019 Emergency department patient visit Fausto Alejandro Work Phone: [facility] Emergency Department Comment on above: Pleuritic chest pain (Primary Dx) Start: 02-21-2019 End: 02-21-2019 Postop follow up visit related to original px Kristin Machuca Alphonse Work Phone: [facility] Comment on above: S/P CABG (coronary a rtery bypass graft) (Primary Dx) Start: 02-21-2019 End: 02-21-2019 Subsequent hospital visit by physician Jacob Cam Work Phone: [facility] Comment on above: S/P CABG (coronary a rtery bypass graft) Start: 02-18-2019 End: 02-18-2019 Documentation procedure Kristin Byrnes Work Phone: [facility] Start: 02-13-2019 End: 02-13-2019 Postop follow up visit related to original px Kristin Walkergabrielle Walker Work Phone: [facility] Comment on above: S/P CABG (coronary a rtery bypass graft) (Primary Dx) Start: 02-13-2019 End: 02-13-2019 Subsequent hospital visit by physician Kristin Byrnes Work Phone: [facility] Comment on above: S/P CABG x 1 Start: 02-06-2019 End: 02-06-2019 Postop follow up visit related to original px Jacob Cam Work Phone: [facility] Comment on above: S/P CABG x 1 (Primar y Dx) Start: 02-06-2019 End: 02-06-2019 Subsequent hospital visit by physician Kristin Walker Work Phone: [facility] Comment on above: S/P CABG (coronary a rtery bypass graft) Start: 02-02-2019 End: 02-04-2019 Subsequent hospital visit by physician Arvin Gilliam Work Phone: [facility] Cardiovascular ICU Comment on above: S/P CABG x 1 Start: 02-02-2019 End: 02-02-2019 Subsequent hospital visit by physician Kristin Walker Work Phone: [facility] Diagnostics Comment on above: Chest pain, unspecif ied type Start: 01-31-2019 End: 01-31-2019 Documentation procedure Kristin Walker Work Phone: [facility] Start: 01-31-2019 End: 01-31-2019 Postop follow up visit related to original px Kristin Walker Work Phone: [facility] Comment on above: S/P CABG (coronary a rtery bypass graft) (Primary Dx) Start: 01-31-2019 End: 01-31-2019 Subsequent hospital visit by physician Kristin Byrnes Work Phone: [facility] Comment on above: S/P CABG (coronary a rtery bypass graft) Start: 01-21-2019 End: 01-21-2019 Evaluation and management of inpatient Kristin Byrnes Work Phone: [facility] Pul[facility] Start: 01-17-2019 End: 01-29-2019 Evaluation and management of inpatient Ana Ruizjanki Weaver Work Phone: [facility] Cardi[facility] Comment on above: Chest pain, atypical (Primary Dx); Type 2 diabetes mellitus without complication, without long-term current use of insulin (HCC); Coronary artery disease, angina presence unspecified, unspecified vessel or lesion type, unspecified whether [place] or transplanted heart; Type 2 diabetes mellitus with other circulatory complications (HCC); S/P CABG x 1 Start: 01-04-2019 End: 01-04-2019 Emergency department patient visit Brian Cordoba Work Phone: [facility] Comment on above: COPD exacerbation (H CC) (Primary Dx) Start: 12-26-2018 End: 12-26-2018 Office outpatient visit 25 minutes Maykel Whitney Work Phone: [facility] Comment on above: Coronary artery dise ase involving [place] coronary artery of [place] heart with angina pectoris (HCC) (Primary Dx); Acute on chronic diastolic heart failure (HCC) Start: 12-25-2018 End: 12-25-2018 Subsequent hospital visit by physician Patricia Louis Work Phone: [facility] Comment on above: Chronic systolic con gestive heart failure (HCC) Start: 12-18-2018 End: 12-18-2018 Subsequent hospital visit by physician Patricia Louis Work Phone: [facility] Comment on above: Chronic systolic con gestive heart failure (HCC) Start: 12-10-2018 End: 12-10-2018 Subsequent hospital visit by physician Patricia Louis Work Phone: [facility] Comment on above: Chronic systolic hea rt failure (HCC); Hypertension, unspecified type; Coronary artery disease involving [place] coronary artery of [place] heart without angina pectoris Start: 11-26-2018 Refill Patricia Morales ax [employer]ER B[employer]CHER OPERATOR Work Phone: [facility] Comment on above: Medication Refill Start: 09-27-2018 End: 09-27-2018 Emergency department patient visit Jesúscam Erik Work Phone: [facility] Comment on above: Acute exacerbation o f chronic obstructive pulmonary disease (COPD) (HCC) (Primary Dx) Start: 01-21-2018 End: 01-21-2018 Patient encounter procedure Other Other [facility] Start: 01-11-2018 End: 01-11-2018 Patient encounter procedure Sophia Jarad Llanos [facility] Comment on above: Other (ROSA Attempt.) Start: 01-08-2018 End: 01-09-2018 Patient encounter procedure Yareli Platayuliana Facility:[place] Start: 01-07-2018 Patient encounter procedure Patricia L. Sruthi Facility:[place] Start: 01-07-2018 End: 01-07-2018 Office outpatient visit 25 minutes Patricia Rodríguez Sruthi Work Phone: [facility] Comment on above: Chronic systolic hea rt failure (HCC) (Primary Dx); Essential hypertension; Coronary artery disease involving [place] coronary artery of [place] heart without angina pectoris Start: 09-23-2017 End: 09-25-2017 Patient encounter procedure Sofie Daigle Facility:[place] Start: 09-20-2017 End: 09-20-2017 Office outpatient visit 25 minutes Patricia L. Sruthi Work Phone: [facility] Start: 09-20-2017 Refill Patricia Westbrooku ax [employer]ER B[employer]CHER OPERATOR Work Phone: [facility] Comment on above: Medication Refill Start: 09-11-2017 End: 09-11-2017 Emergency department patient visit Samira Monzon Facility:[facility] Start: 06-11-2017 Refill Izabel Earl [facility] Start: 03-08-2017 End: 03-08-2017 Ambulatory Fitz Mg Work Phone: [facility] Start: 01-18-2017 End: 01-18-2017 Ambulatory Carola Lyle Work Phone: [facility] Start: 12-08-2016 Office outpatient vi sit 15 minutes Bev Tolentino Work Phone: [facility] Physicians Start: 11-23-2016 Office outpatient vi sit 15 minutes Bev Thomas Exten Work Phone: [facility] Start: 11-02-2016 End: 11-02-2016 Office outpatient visit 15 minutes Bev Thomas Rajan Work Phone: [facility] Comment on above: Leukocytosis, unspec ified type (Primary Dx) Start: 10-26-2016 End: 10-26-2016 Patient encounter procedure Bev Thomas Rajan Work Phone: [facility] Start: 10-26-2016 Office/outpatient visit, est, level 4 Bev Thomas Rajan Work Phone: [facility] Start: 10-20-2016 End: 10-20-2016 Ambulatory Moises Patel Work Phone: [facility] Start: 10-20-2016 End: 10-20-2016 Ambulatory Moises Patel Work Phone: [facility] Start: 10-12-2016 End: 10-12-2016 Patient encounter procedure Moises Ptael Work Phone: [facility] Start: 10-12-2016 End: 10-12-2016 Patient encounter procedure Moises Patel Work Phone: [facility] Start: 09-18-2016 End: 09-18-2016 Patient encounter procedure Patricia Anne Louis Work Phone: [facility] Start: 09-18-2016 Office/outpatient visit, est, level 3 Patricia Bowersx Work Phone: [facility] Start: 06-21-2016 Refill Patricia Westbrooku ax Game Closure Work Phone: [facility] Failure [facility] Comment on above: Medication Refill Start: 03-30-2016 Refill Patricia Westbrooku ax FELLER BUNCHER OPERATOR Work Phone: [facility] Comment on above: Medication Refill Start: 10-08-2015 Refill Patricia Westbrooku ax FELLER BUNCHER OPERATOR Work Phone: [facility] Failure [facility] Comment on above: Medication Refill Procedures Date Procedure Procedure Detail Performing Clinician Start: 12-07-2022 CT of left shoulder DO Jasen Campbell Work Phone: Start: 12-07-2022 Antibody screen Jose Raul Campbell Comment on above: Result Comment: PERF ORMED BY: [facility] [place] [address] PATHOLOGIST GROCERY ASSOCIATE TIBURCIO POWERS M.D. Start: 12-07-2022 Plain X-ray [...] Start: 02-25-2019 UGALDE TOP Fausto Ladd n Pinon Work Phone: Start: 02-25-2019 LIGHT GREEN TOP Fausto cosby Crouse Work Phone: Start: 02-25-2019 RAINBOW DRAW Fausto Ladd n Pinon Work Phone: Start: 02-25-2019 Basic metabolic 2000 [...] [Mass/volume] in Serum or Plasma Fausto Laddn Pinon Work Phone: Start: 02-25-2019 Troponin measurement Mi ashleigh Laddn Javno Work Phone: Start: 02-25-2019 12 lead ECG [...] Jim Work Phone: Start: 01-27-2019 Radiography of ujjxxe-yswvuv-iiplpcy Kristin Walker Work Phone: Start: 01-27-2019 Echography [...] or Plasma Kirstin Walker Work Phone: Start: 01-26-2019 Glucose [Mass/volume [...] of arteri al blood gas studies Generic [facility] Work Phone: Start: 01-24-2019 End: 01-24-2019 Glucose [Mass/volume] in Blood Nova Barrera Diandra Work Phone: Start: 01-24-2019 Evaluation of arteri al blood gas studies Generic [facility] Work Phone: Start: 01-24-2019 Glucose [Mass/volume ] in Blood jax Barrera Diandra Work Phone: Start: 01-24-2019 Calcium.ionized [Mas s/volume] in Serum or Plasma Kristin Abraham [employer] Work Phone: Start: 01-24-2019 aPTT in Blood by Coa gulation assay Kristin Abraham [employer] Work Phone: Start: 01-24-2019 Basic metabolic 2000 panel - Serum or Plasma Kristin Abraham [employer] Work Phone: Start: 01-24-2019 Complete blood count with white cell differential, automated Kristin Abraham [employer] Work Phone: Start: 01-24-2019 Complete blood count with white cell differential, manual Kristin Abraham [employer] Work Phone: Start: 01-24-2019 Fibrinogen [Mass/vol ume] in Platelet poor plasma by Coagulation assay Kristin Abraham [employer] Work Phone: Start: 01-24-2019 INR in Platelet poor plasma by Coagulation assay Kristin Abraham [employer] Work Phone: Start: 01-24-2019 Magnesium [Mass/volu me] in Serum or Plasma Kristinkyler Byrnes Work Phone: Start: 01-24-2019 Evaluation of arteri al blood gas studies [facility] Work Phone: Start: 01-24-2019 End: [...] in Blood by Coa gulation assay Maykel Whtiney Work Phone: Start: 01-24-2019 Basic metabolic 2000 [...] of abuse urine screening test Kristin Jarad [employer] Work Phone: Start: 01-22-2019 Urinalysis Kristin Alannah marquis Titley Work Phone: Start: 01-22-2019 APTT - reference Maykel Whitney Work Phone: Start: 01-22-2019 Basic metabolic 2000 panel - Serum or Plasma Kristin Lee [employer] Work Phone: Start: 01-22-2019 Complete blood count with white cell differential, automated Kristin Abraham [employer] Work Phone: Start: 01-22-2019 Complete blood count with white cell differential, manual Kristin Lee [employer] Work Phone: Start: 01-21-2019 Glucose [Mass/volume ] in Blood Nova Jim Work Phone: Start: 01-21-2019 APTT - reference Mirna Rodriguez Work Phone: Start: 01-21-2019 Glucose [Mass/volume ] in Blood Nova Jim Work Phone: Start: 01-21-2019 Contrast echocardiography Kristin Jarad [employer] Work Phone: Start: 01-21-2019 Glucose [Mass/volume ] in Blood Nova Jim Work Phone: Start: 01-21-2019 Bacteria identified in Unspecified specimen by Aerobe culture Kristin Lee [employer] Work Phone: Start: 01-21-2019 Standard chest X-ray Nasim Abraham Titley Work Phone: Start: 01-21-2019 Doppler ultrasonogra phy of artery of lower limb Kristin Abraham [employer] Work Phone: Start: 01-21-2019 COMPLETE PFT Kristin Grijalva [employer] Work Phone: Start: 01-21-2019 Basic metabolic 2000 panel - Serum or Plasma Kristin Abraham [employer] Phone: Start: 01-21-2019 Complete blood count with white cell differential, automated Kristin Abraham [employer] Work Phone: Start: 01-21-2019 Complete blood count with white cell differential, manual Kristin Abraham [employer] Work Phone: Start: 01-20-2019 Carotid artery doppl er assessment Kristin Abraham [employer] Work Phone: Start: 01-20-2019 Electrocardiogram Provi malinda Not In System Start: 01-20-2019 Cul bact xcpt urine blood/stool aerobic isol Kristin Abraham [employer] Work Phone: Start: 01-20-2019 Evaluation of arteri al blood gas studies [facility] Work Phone: Start: 01-20-2019 Amylase measurement, body fluid Kristin Abraham [employer] Work Phone: Start: 01-20-2019 Blood type and Indir ect antibody screen panel - Blood Kristin Abraham [employer] Phone: Start: 01-20-2019 Hemoglobin A1c/Hemoglobin.total in Blood Kristin Abraham [employer] Work Phone: Start: 01-20-2019 Hepatic function 200 0 panel - Serum or Plasma Kristin Abraham [employer] Phone: Start: 01-20-2019 INR in Platelet poor plasma by Coagulation assay Kristin Abraham [employer] Phone: Start: 01-20-2019 Prealbumin [Mass/vol ume] in Serum or Plasma Kristin Abraham [employer] Phone: Start: 01-20-2019 Thyrotropin [Units/v olume] in [...] System Start: 09-28-2018 Assay of troponin quantitative [facility] Start: 09-28-2018 Natriuretic peptide [facility] Start: 09-27-2018 Assay of troponin quantitative [facility] Start: 09-27-2018 Fibrin dgradj produc ts d-dimer quantitative [facility] Start: 09-27-2018 Complete blood count with white cell differential, automated Nathanael Valencia Work Phone: Start: 09-27-2018 Complete blood count with white cell differential, manual [employer] Valencia Work Phone: Start: 09-27-2018 Radiologic exam ches t single view Nathanael Valencia Work Phone: Start: 09-27-2018 Basic metabolic pane l calcium total [facility] Start: 09-27-2018 POC CBC AND DIFFERENTIAL Jesúscam Valencia Work Phone: Start: 09-27-2018 End: 09-28-2018 12 lead ECG Jesúscam Valencia Work Phone: Start: 05-27-2015 Colonoscopy Tiffany ovalle RN Plan of Treatment Date Care Activity Detail Author Start: 08-08-2036 Pneumococcal Vaccine: Ped or At-Risk (2 of 2 - PPSV23) Pneumococcal Vaccine: Ped or At-Risk (2 of 2 - PPSV23) [facility] Start: 05-26-2025 Screening for malignant neoplasm of colon [facility] Start: 11-07-2023 Prostate specific antigen measurement PSA Level [facility] Start: 10-13-2022 Influenza vaccination Sequential Influenza Vaccine (Season Ended) [facility] Start: 03-29-2022 End: 03-29-2022 Patient encounter procedure 03/29/2022 Office Visit Family Medicine Moises Patel MD [address] [place] [id number] [facility] Start: 02-05-2022 Hemoglobin A1c measurement A1C [facility] Start: 10-31-2021 End: 10-31-2021 Patient encounter procedure 10/31/2021 Office Visit Cardiology Anita Rowland MD [address] [place] [address] [facility] Start: 10-13-2021 Influenza vaccination [facility] Start: 08-08-2021 Administration of herpes zoster vaccine Zoster Vaccines (1 of 2) [facility] Start: 08-08-2021 Prostate specific antigen measurement PROSTATE CANCER SCREENING DISCUSSION [facility] Start: 08-08-2021 Screening for malignant neoplasm of colon Flexible sigmoidoscopy [facility] Start: 08-08-2021 Zoster vaccine hzv live for subcutaneous use ZOSTER (SHINGLES) VACCINE (1 of 2) [facility] Start: 10-13-2020 Influenza vaccination [facility] Start: 10-01-2020 COVID-19 VACCINE (3 - Booster for Pfizer series) COVID-19 VACCINE (3 - Booster for Pfizer series) [facility] Start: 09-24-2020 End: 09-24-2020 Patient encounter procedure 09/24/2020 Office Visit Pulmonary Disease Valerie Carreno, LAND EXAMINER-[employer]INS[employer] FARMER [address] [id number] [facility] Pulmonary Disease [facility] Start: 08-06-2020 COVID-19 Vaccine (2 - Pfizer 2-dose series) COVID-19 Vaccine (2 - Pfizer 2-dose series) [facility] Start: 08-06-2020 COVID-19 Vaccine (2 - Pfizer series) COVID-19 Vaccine (2 - Pfizer series) [facility] Start: 07-12-2020 End: 08-10-2021 Ultrasound duplex arterial arm left Ultrasound duplex arterial arm left Vascular Ultrasound Routine Other specified complications of surgical and medical care, not elsewhere classified, initial encounter Expected: 07/12/2020, Expires: 08/10/2021 [facility] Comment on above: Expected: 07/12/2020, Expires: Start: 07-09-2020 End: 07-09-2020 Patient encounter procedure 07/09/2020 Appointment Cardiology Anita Rowland MD [address] [place] [address] [phone] [facility] Start: 06-02-2020 Subsequent hospital visit by physician 06/02/2020 Hospital Encounter Cardiology Anita Rowland MD [address] [place] [address] [phone] [facility] Procedural Care Unit Start: 05-28-2020 End: 05-28-2020 Appointment [facility] Start: 03-24-2020 HbA1c (Bld) [Mass fraction] A1C [facility] Start: 03-24-2020 Hemoglobin A1c measurement A1C [facility] Start: 02-26-2020 Screening for malignant neoplasm of lung Low-dose CT Lung Cancer Screen [facility] Start: 12-08-2019 End: 12-08-2019 Office Visit 12/08/2019 Office Visit Cardiology Anita Rowland MD [address] [place] [address] [phone] [facility] Start: 11-07-2019 End: 11-07-2019 Appointment 11/07/2019 Appointment Cardiology Anita Rowland MD [address] [place] [address] [phone] [facility] Start: 11-05-2019 End: 11-05-2019 Office Visit 11/05/2019 Office Visit Neurology Ginny Rushing CNP [address] [address] [phone] [facility] Start: 10-16-2019 End: 10-16-2019 Appointment 10/16/2019 Appointment Cardiology Anita Rowland MD [address] [place] [address] [phone] [facility] Start: 10-14-2019 Influenza vaccination Sequential Influenza Vaccine (#1) [facility] Start: 10-14-2019 Influenza vaccination given Sequential Influenza Vaccine (#1) [facility] Start: 09-30-2019 End: 09-30-2019 Office Visit 09/30/2019 Office Visit Cardiology Anita Rowland MD [address] [place] [address] [phone] [facility] Start: 07-31-2019 End: 07-31-2019 Appointment [facility] Start: 07-22-2019 HbA1c (Bld) [Mass fraction] A1C [facility] Start: 06-25-2019 End: 06-25-2019 Treatment 06/25/2019 Treatment Cardiac Carlo Berry MD [address] [place] [address] [phone] [facility] Start: 06-23-2019 End: 06-23-2019 Treatment 06/23/2019 Treatment Cardiac Carlo Berry MD [address] [place] [address] [phone] [facility] Start: 06-19-2019 End: 06-19-2019 Treatment 06/19/2019 Treatment Cardiac Carlo Berry MD [address] [place] [address] [phone] [facility] Start: 06-18-2019 End: 06-18-2019 Treatment 06/18/2019 Treatment Cardiac Carlo Berry MD [address] [place] [address] [phone] [facility] Start: 06-16-2019 End: 06-16-2019 Treatment 06/16/2019 Treatment Cardiac Carlo Berry MD [address] [place] [address] [phone] [facility] Start: 06-12-2019 End: 06-12-2019 Treatment 06/12/2019 Treatment Cardiac Carlo Berry MD [address] [place], [place] [address] [address] [phone] [facility] Start: 06-11-2019 End: 06-11-2019 Treatment 06/11/2019 Treatment Cardiac Rehabilitation Carlo Mercedes MD [address] [place] [address] [facility] Start: 06-09-2019 End: 06-09-2019 Treatment 06/09/2019 Treatment Cardiac Rehabilitation Carlo Mercedes MD [address] [place] [address] [phone] [facility] Start: 06-05-2019 End: 06-05-2019 Treatment [facility] Start: 06-04-2019 End: 06-04-2019 Treatment [facility] Start: 06-02-2019 End: 06-02-2019 Treatment [facility] Start: 05-29-2019 End: 05-29-2019 Treatment [facility] Start: 05-28-2019 End: 05-28-2019 Treatment [facility] Start: 05-26-2019 End: 05-26-2019 Treatment [facility] Start: 05-22-2019 End: 05-22-2019 Treatment [facility] Start: 05-21-2019 End: 05-21-2019 Treatment [facility] Start: 05-19-2019 End: 05-19-2019 Treatment [facility] Start: 05-15-2019 End: 05-15-2019 Treatment [facility] Start: 05-14-2019 End: 05-14-2019 Treatment [facility] Start: 05-12-2019 End: 05-12-2019 Treatment [facility] Start: 05-08-2019 End: 05-08-2019 Treatment [facility] Start: 05-07-2019 End: 05-07-2019 Treatment [facility] Start: 05-05-2019 End: 05-05-2019 Treatment [facility] Start: 05-01-2019 End: 05-01-2019 Treatment [facility] Start: 04-30-2019 End: 04-30-2019 Treatment [facility] Start: 04-28-2019 End: 04-28-2019 Treatment [facility] Start: 04-24-2019 End: 04-24-2019 Treatment [facility] Start: 04-23-2019 End: 04-23-2019 Treatment [facility] Start: 04-21-2019 End: 04-21-2019 Treatment [facility] Start: 04-17-2019 End: 04-17-2019 Treatment [facility] Start: 04-16-2019 End: 04-16-2019 Treatment [facility] Start: 04-14-2019 End: 04-14-2019 Treatment [facility] Start: 04-10-2019 End: 04-03-2020 Basic metabolic 2000 panel Basic Metabolic Panel Lab Routine Medication management Expected: 04/10/2019, Expires: 04/03/2020 [facility] Comment on above: Expected: 04/10/2019,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 or Organizations: [...] of breath, Disp: 1 Each, Rfl: 0 Ummatkcuctu-Uqzxswyfo-Imqlzn (Trelegy Ellipta) 200-62.5-25 MCG/INH Aerosol Powder, breath [...] Mites/D.P., Class 1.04 (A) ELM, IGE <0.10 [place], IGE <0.10 [place], [place] 2.77 (A) [...] Moises Patel MD documented in this encounter [facility] 08-19-2020 Miscellaneous Notes Refill needed to local pharmacy. Last OV with Dr. Rowland May 2020. documented in this encounter [facility] 08-06-2020 Miscellaneous Notes Last OV 05/28/20. Refills appropriate. documented in this encounter [facility] 06-10-2020 Miscellaneous Notes Order needed to local pharmacy. One week sample given for Xarelto 20mg PO daily. Coupon also given for refill pickup. Education handouts given. documented in this encounter [facility] 06-10-2020 History of Presen t illness Narrative Dr. Rowland notified of preliminary results of arterial duplex. Patient discussing results with Dr. Rowland and new orders received for Xarelto 20mg daily. Instructional handout given. Spoke to with recommendations as well. documented in this encounter [facility] 06-10-2020 History of Presen t illness [...] radial pulse palpated. documented in this encounter [facility] 06-02-2020 Hospital Discharg e instructions Princess Cisneros RN - 06/02/2020 [facility] Post Cardiac Catheterization Discharge Instructions Site Care Leave Bandage in place the night of your catheterization. Watch for any bleeding or oozing from the site. If this occurs, lie flat and place direct pressure on the bandage for 20 minutes. If bleeding reoccurs call [facility]. For groins, remove your bandage the following [...] shower 24 hours after the procedure. Call [facility] at [phone] if you notice any of the following: [...] need of prescription assistance, please notify the [facility] nurse or call the office. If you were prescribed Plavix (clopidogrel), Effient (prasugrel), or Brilinta (ticagrelar) after your procedure, DO NOT STOP taking this medication unless told to do so by your [facility] behavioral interventionist. Follow up appointments, tests or procedures will be on your discharge paperwork under What's next. Please call [facility] at [phone] to reschedule any appointments if needed or if you have any questions or concerns. Thank you! documented in this encounter [facility] 06-01-2020 History of Presen t illness Narrative Called and notified patient of time change for cath tomorrow. Patient to arrive to the hospital at 0800 for cath at 1000. Patient verbalizes understanding. documented in this encounter [facility] 05-28-2020 Miscellaneous Notes Associated Problem(s): COPD (chronic obstructive pulmonary disease) (HCC) Patient reports he has discontinued tobacco abuse. Associated Problem(s): ISAC (obstructive sleep apnea) Noncompliant with CPAP therapy. Associated Problem(s): Coronary artery disease involving koyuk coronary artery of koyuk heart without angina pectoris Patient has a [...] intensified as tolerated. documented in this encounter [facility] 05-28-2020 History of Presen t illness Narrative CARDIOLOGY PROGRESS NOTE [facility] [address] ([address]) [facility] [address] [facility] [address] Physicians: Moises Patel MD (Family); [...] not describing palpitations. Patient was hospitalized at [facility] in an observational stay unit for [...] plaque stabilization therapy. Coronary artery disease involving koyuk coronary artery of koyuk heart without angina pectoris Patient has a [...] the review of systems obtained by the durable medical equipment repairer. Vitals: Vitals: 05/28/20 1605 BP: (!) 149/88 Pulse: 78 SpO2: 96% Weight: 121.6 kg (268 lb) Height: 5' 5.98 1. Essential hypertension 2. Mixed hyperlipidemia 3. Coronary artery disease involving koyuk coronary artery of koy[place] heart without angina pectoris 4. PAD (peripheral artery disease) (HCC) 5. Centrilobular emphysema (HCC) 6. ISAC (obstructive sleep apnea) 7. Nicotine abuse 8. Pre-procedure lab exam 9. Abnormal stress test Anita Rowland MD documented in this encounter [facility] 05-28-2020 Instructions Rubi Pratt RN - 05/28/2020 4:33 PM EDT Tiffany Leo BSN, transition specialist for Anita Rowland MD [address] [facility], 3rd Floor [place] [address] General office (Scheduling) Covid Testing Prior to your procedure or test you will need to have a test to rule out Covid 19. This is an oral swab that is done at a drive-up testing site in [place]. You are to have this test completed no earlier than 96 hours but no less than 72 hours before your cardiac procedure or test. The testing site is at [address] [place] [address] in [place]. It is off of [address] between [address] and [facility]. The hours of testing are Sunday [...] Tuesday June 02, 2020 Please arrive at [facility] and check in at the Outpatient Registration [...] questions or concerns please contact us at [phone]. documented in this encounter [facility] 06-11-2017 Telephone encount er Note Pts left a VM requesting refills on three of the pts medications. [facility] 06-11-2017 Miscellaneous Notes Formattin g of this note might be different from the original. Pts left a VM requesting refills on three of the pts medications. documented in this encounter [facility] Evaluation note Diagnosis Essential hypertension- Primary Unspecified essential hypertension Mixed hyperlipidemia Coronary artery disease involving koyuk coronary artery of koy[place] heart without angina pectoris PAD (peripheral artery disease) (HCC) Unspecified peripheral vascular disease Centrilobular emphysema (HCC) ISAC (obstructive sleep apnea) Obstructive sleep apnea (adult) (pediatric) Nicotine abuse Pre-procedure lab exam Pre-procedural laboratory examination Abnormal stress test Other nonspecific abnormal cardiovascular system function study documented in this encounter [facility] note* Diagnosis NSVT (nonsustained ventricular tachycardia) ([facility]) Abnormal EKG Nonspecific abnormal electrocardiogram (ECG) (EKG) documented in this encounter [facility] note* Diagnosis Other specified complications of surgical and medical care, not elsewhere classified, initial encounter- Primary documented in this encounter [facility] note* Diagnosis Other specified complications of surgical and medical care, not elsewhere classified, initial encounter- Primary documented in this encounter [facility] note* Diagnosis Other specified complications of surgical and medical care, not elsewhere classified, initial encounter documented in this encounter [facility] note* Diagnosis Other specified complications of surgical and medical care, not elsewhere classified, initial encounter documented in this encounter [facility] note* Diagnosis Chronic obstructive pulmonary disease with acute exacerbation- Primary Obstructive chronic bronchitis with exacerbation COPD with acute exacerbation Obstructive chronic bronchitis with exacerbation [facility] Inadequately controlled diabetes mellitus- Primary Type II or unspecified type diabetes mellitus without mention of complication, not stated as uncontrolled Insomnia, unspecified type documented in this encounter [facility] Phone: Hospital Discharge instructions Additional Instructions If your symptoms return/worsen or you develop any further concerns or symptoms please see your doctor or return to the emergency department immediately. Please be sure to follow-up with your primary care provider regarding today's visit as well as the lab and imaging results.[facility] Work Phone: Assessments Diagnosis Leukocytosis, unspecified ty pe - Primary Diagnosis Essential hypertension - Vivi emma Unspecified essential hypertension Chronic systolic heart failu re (HCC) Chronic systolic heart failure Coronary artery disease invo lving koyuk coronary artery of koy[place] heart without angina pectoris Hyperlipidemia, unspecified hyperlipidemia type Diagnosis Leukocytosis, unspecified ty pe - Primary Diagnosis Leukocytosis, unspecified ty pe - Primary Diagnosis Chronic systolic heart failu re (HCC) - Primary Chronic systolic heart failure Essential hypertension Unspecified essential hypertension Coronary artery disease invo lving koyuk coronary artery of [place] heart without angina pectoris Diagnosis Chronic systolic heart failu re (HCC) - Primary Chronic systolic heart failure Essential hypertension Unspecified essential hypertension Coronary artery disease invo lving koyuk coronary artery of koy[place] heart without angina pectoris Diagnosis Leukocytosis, unspecified ty pe - Primary Diagnosis Acute exacerbation of chronic obstructive pulmonary disease (COPD) ([facility])- Primary Obstructive chronic bronchitis with exacerbation Diagnosis [...] unspecified vessel or lesion type, unspecified whether koyuk or transplanted heart Diagnosis TIA (transient ischemic attack)- Primary Unspecified transient cerebral ischemia Essential hypertension Unspecified essential hypertension Mixed hyperlipidemia Coronary artery disease involving koyuk coronary artery of koy[place] heart without angina pectoris Centrilobular emphysema ([facility]) ISAC on CPAP Nicotine abuse Diagnosis TIA (transient ischemic attack) Unspecified transient cerebral ischemia Diagnosis Chronic systolic heart failure (HCC) Chronic systolic heart failure Hypertension, unspecified type Coronary artery disease involving koyuk coronary artery of koy[place] heart without angina pectoris Diagnosis Chronic systolic congestive heart failure ([facility]) Diagnosis Chest pain, atypical Type 2 diabetes mellitus without complication, without long-term current use of insulin ([facility]) Coronary artery disease, angina presence unspecified, unspecified vessel or lesion type, unspecified whether koyuk or transplanted heart Type 2 diabetes mellitus with other circulatory complications ([facility]) S/P CABG x 1 Postsurgical aortocoronary bypass status Chest pain Unspecified chest pain ACS (acute coronary syndrome) ([facility]) Intermediate coronary syndrome PAD (peripheral artery disease) ([facility]) Unspecified peripheral vascular disease Diagnosis Pleuritic chest pain Painful respiration Diagnosis Near syncope- Primary COPD (chronic obstructive pulmonary disease) ([facility]) Chronic airway obstruction, not elsewhere classified Coronary artery disease involving koy[place] coronary artery of koy[place] heart without angina pectoris ISAC (obstructive sleep apnea) Obstructive sleep apnea (adult) (pediatric) Essential hypertension Unspecified essential hypertension TIA (transient ischemic attack) Unspecified transient cerebral ischemia Mixed hyperlipidemia Nicotine abuse Diagnosis COPD exacerbation ([facility]) Obstructive chronic bronchitis with exacerbation Diagnosis Coronary artery disease involving koy[place] coronary artery of koy[place] heart with angina pectoris ([facility])- Primary Acute on chronic diastolic heart failure ([facility]) Acute on chronic diastolic heart failure Diagnosis Acute CVA (cerebrovascular accident) ([facility]) Essential hypertension Unspecified essential hypertension Mixed hyperlipidemia Coronary artery disease involving koy[place] coronary artery of koy[place] heart without angina pectoris GERD (gastroesophageal reflux disease) Esophageal reflux PAD (peripheral artery disease) ([facility]) Unspecified peripheral vascular disease TIA (transient ischemic [...] and how you are feeling on Sunday. [phone] Please work your portion sizes and snacks [...] your care team or the office at [phone]. Please include medication name, pharmacy name, and [...] They will send two batteries and a monkey trainer. While you are wearing one of the batteries please have the other battery charging in the monkey trainer device. Please do not get the device [...] when results have been interpreted by a behavioral interventionist. If you have any questions please call [phone]. documented in this encounter* Patient Instructions* Ligia Koroma RN - 12/26/2018 4:05 PM EST Your nurse today was Ligia HURT who can be contacted at [phone]. You may also contact Kalina Bernal other nurse at [phone]. REFILLS: When in need of refills please call Ligia at the above number or the office at [phone]. Please include medication name and dose, pharmacy name and location, and specify 30-day or 90-day supply. Please check with your pharmacy within 24-48 hours of request for your refill. You must follow up as directed to continue current refills. Thank you! documented in this encounter History of Present Illness * Patricia Louis, FELLER BUNCHER OPERATOR - 01/07/2018 10:37 AM EST Formatting of this note may be different from the original. [facility] CARDIOLOGY HEART FAILURE CLINIC NAME: Fernando Helton DATE OF : 1970 MEDICAL RECORD#: [id number] LICENSING REGISTRATION EXAMINER: TODAY'S DATE: 01/07/2018 Subjective Fernando Helton is [...] edema. 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 Mr. Helton has not seen a behavioral interventionist in some time. He will be scheduled [...] INCLUDES: Strong family hx w/ Father having FL/CABG at age 45. Mother w/ FL at 63 and CVA hx. The patient had an STEMI (anterior/lateral) in April 2012 required IABP and bare metal stenting. He was non-compliant w/ medications and had a anterior FL in 2014 w/ cardiac arrest and additional [...] 1998 CAD (coronary artery disease) CAD s/p [facility] with 1 stent in left main 07/2012, replaced 09/2014 Chest pain Circulation problem right leg COPD (chronic obstructive pulmonary disease) ([facility]) Fatigue GERD (gastroesophageal reflux disease) Headache HLD (hyperlipidemia) HTN (hypertension) Metabolic syndrome Mood disorder ([facility]) Obstructive sleep apnea Pneumomediastinum ([facility]) 01/2007 Rotator cuff tear, right 1997 s/p repair SLAP tear of shoulder 2011 left - s/p surgery to place [address] elevation myocardial infarction (STEMI) of anterolateral wall ([facility]) 05/09/12 Past Surgical History: Procedure Laterality Date [...] with patient. There is collaboration between the FELLER BUNCHER OPERATOR and the consulting/collaborating physician regarding this patient's [...] of multiple medical problems including CAD statuspost [facility] with 1 stent placed in the left [...] 1998 CAD (coronary artery disease) CAD s/p [facility] with 1 stent in left main 07/2012, replaced 09/2014 Chest pain Circulation problem right leg COPD (chronic obstructive pulmonary disease) ([facility]) Fatigue GERD (gastroesophageal reflux disease) Headache HLD (hyperlipidemia) HTN (hypertension) Metabolic syndrome Mood disorder ([facility]) Obstructive sleep apnea Pneumomediastinum ([facility]) 01/2007 Rotator cuff tear, right 1997 s/p repair SLAP tear of shoulder 2011 left - s/p surgery to place [address] elevation myocardial infarction (STEMI) of anterolateral wall ([facility]) 05/09/12 Past Surgical History: Procedure Laterality Date [...] seen by the PA. Dr. Arvin Gilliam, [facility] for Dr. 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 He [...] last 72 hours. 02/02/2019 CTA pulmonary arteries: [id number] effusion with mild atelectasis in the left [...] for discharge after thoracentesis Hold Plavix CPT: 95462 * Arvin Gilliam II, MD - 02/02/2019 [...] Walker PA-C - 02/13/2019 9:31 AM EST Krisitn Walker PA-C 02/13/19 Fernando Helton Allergies Allergen [...] Westbrook, PT - 03/11/2019 8:20 AM EST [facility] Cardiac Rehab [address] [place], [place] [id number] Office 03/11/2019 Patient: Fernando Helton : 1970 Primary Diagnosis: CABG The Cardiac Rehab Staff had the recent pleasure of meeting Fernando Helton for a consultation regardingoutpatient cardiac rehabilitation. As you recall, Mr. Helton has a history of FL 2012, FL/ cardiac arrest 2014, and CHF. He recently presented with anterior wall FL. Cardiac cath 01/20/19: EF 45%; occ mid LAD stent. He underwent CABG x 1 on 01/24/19. Risks and benefits associated with a cardiac rehabprogram were discussed along with his risk factors and a preliminary treatment plan and goals for the program. The Cardiac Rehab Staff will maintain contact with you throughout the 12-week program. Thank you for allowing Mr. Helton to participate in [facility] comprehensive risk [...] prescription reviewed and approved by our medical records tech. Psychosocial: Patient scored a 3 on the [...] visit after single-vessel CABG (SPARKS to LAD) ELEM-patient is a pleasant 48-year-old man with known [...] History: Diagnosis Date Acute respiratory failure ([facility]) 09/2014 requring mechanical ventilation Anxiety Bilateral lower extremity edema R > L CAD (coronary artery disease) CAD s/p C with 1 stent in left main 07/2012, replaced 09/2014 Cardiac arrest with ventricular fibrillation ([facility]) 09/25/2014 CHF (congestive heart failure), NYHA class I, chronic, diastolic ([facility]) Chronic sinusitis Claudication of right lower extremity ([facility]) Cluster headache COPD (chronic obstructive pulmonary disease) ([facility]) 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 Bev Tolentino Metabolic syndrome Mood disorder ([facility]) Nasal fracture Obstructive sleep apnea noncompliant with CPAP Orthostatic dizziness with intermittent syncope Pericarditis 02/25/07; 09/23/17 Pneumomediastinum ([facility]) 01/12/2007 secondary to severe coughing spell & ruptured alveoli Rotator cuff tear, right 1997 s/p repair SLAP tear of shoulder 2011 left - s/p surgery to place [address] elevation myocardial infarction (STEMI) of anterolateral wall ([facility]) 05/09/2012 anterolateral STEMI involving left anterior descending coronary artery ([facility]) 09/25/2014 anterior Superficial thrombophlebitis of right upper extremity 12/26/2006 Past Surgical History: Procedure Laterality Date APPENDECTOMY 1998 BONE MARROW BIOPSY W/ ASPIRATION Left 11/27/2016 L posterior iliac crest; Dr. Bev Tloentino CABG OFF PUMP N/A 01/24/2019 Procedure: Coronary Artery Bypass graft x1 with Left Internal Mammary Artery graft, OFF PUMP; Surgeon: Neo Mcneil MD; Location: [facility]; Service: Cardiothoracic CARDIAC CATHETERIZATION 09/24/2014 Segment LV [...] Heart Cath; Surgeon: Carlo Mercedes MD; Location: [facility]IPMENT OPERATOR; Service: Cardiovascular IABP placement 05/09/2012 by [...] file Gets together: Not on file Attends pentecostalism service: Not on file Active member of [...] 10/15/2019 2:26 PM EDT CARDIOLOGY PROGRESS NOTE [facility] [address] ([address]) [facility] [address] [facility] [phone] Physicians: Moises Patel MD (Family); [...] plaque stabilization therapy. Coronary artery disease involving koyuk coronary artery of koy[place] heart without angina pectoris Patient has a [...] the review of systems obtained by the durable medical equipment repairer. Vitals: Vitals: 10/15/19 1406 BP: (!) 142/85 BP Location: Right arm Patient Position: Sitting BP Cuff Size: X-large Adult Pulse: 83 SpO2: 95% Weight: 120.2 kg (265 lb 1.6 oz) Height: 5' 6 1. TIA (transient ischemic attack) 2. Essential hypertension 3. Mixed hyperlipidemia 4. Coronary artery disease involving koy[place] coronary artery of koy[place] heart without angina pectoris 5. Centrilobular emphysema (HCC) 6. ISAC on CPAP 7. Nicotine abuse Anita Rowland MD documented in this encounter* Slim Low, GINSENG FARMER - 01/29/2019 9:56 AM EST Patient ID: Patient Name: Fernando Helton Admit Date: 01/17/2019 MR #: [id number] : 1970 Current location: [facility] Physicians: Moises Patel MD (Family); Kristin BARCENAS [...] 09/2014 Cardiac arrest with ventricular fibrillation ([facility]) 09/25/2014 CHF (congestive heart failure), NYHA class I, chronic, diastolic (HCC) Chronic sinusitis Claudication of right lower extremity (HCC) Cluster headache COPD (chronic obstructive pulmonary disease) ([facility]) 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 Bev Tolentino Metabolic syndrome Mood disorder ([facility]) Nasal fracture Obstructive sleep apnea noncompliant with CPAP Orthostatic dizziness with intermittent syncope Pericarditis 02/25/07; 09/23/17 Pneumomediastinum ([facility]) 01/12/2007 secondary to severe coughing spell & ruptured alveoli Rotator cuff tear, right 1998 s/p repair SLAP tear of shoulder 2011 left - s/p surgery to place [address] elevation myocardial infarction (STEMI) of anterolateral wall ([facility]) 05/09/2012 anterolateral STEMI involving left anterior descending coronary artery ([facility]) 09/25/2014 anterior Superficial thrombophlebitis of right upper extremity 12/26/2006 Past Surgical History: Procedure Laterality Date APPENDECTOMY 1998 BONE MARROW BIOPSY W/ ASPIRATION Left 11/27/2016 L posterior iliac crest; Dr. 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 [...] Fernando Helton Admit Date: 01/17/2019 MR #: [id number] : 1970 Current location: [facility] Physicians: Moises Patel MD (Family); Kristin BARCENAS [...] History: Diagnosis Date Acute respiratory failure ([facility]) 09/2014 requring mechanical ventilation Anxiety Bilateral lower extremity edema R > L CAD (coronary artery disease) CAD s/p [facility] with 1 stent in left main 07/2012, replaced 09/2014 Cardiac arrest with ventricular fibrillation ([facility]) 09/25/2014 CHF (congestive heart failure), NYHA class I, chronic, diastolic ([facility]) Chronic sinusitis Claudication of right lower extremity ([facility]) Cluster headache COPD (chronic obstructive pulmonary disease) ([facility]) 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 Bev Tolentino Metabolic syndrome Mood disorder ([facility]) Nasal fracture Obstructive sleep apnea noncompliant with CPAP Orthostatic dizziness with intermittent syncope Pericarditis 02/25/07; 09/23/17 Pneumomediastinum ([facility]) 01/12/2007 secondary to severe coughing spell & ruptured alveoli Rotator cuff tear, right 1997 s/p repair SLAP tear of shoulder 2011 left - s/p surgery to place [address] elevation myocardial infarction (STEMI) of anterolateral wall ([facility]) 05/09/2012 anterolateral STEMI involving left anterior descending coronary artery ([facility]) 09/25/2014 anterior Superficial thrombophlebitis of right upper extremity 12/26/2006 Past Surgical History: Procedure Laterality Date APPENDECTOMY 1998 BONE MARROW BIOPSY W/ ASPIRATION Left 11/27/2016 L posterior iliac crest; Dr. 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; Service: Cardiovascular IABP placement 05/09/2012 by [...] consultation Consider losartan in outpatient setting CPT: 19347 * Louise Caruso RN - 01/27/2019 12:59 PM EST DISCHARGE PLAN PROGRESS NOTE Date: 01/27/2019 Time: 12:59 PM Patient Name: Fernando Helton Date of : 1970 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 He is from home with his spouse and is s/p Cabg post op day #3 An echo has been ordered along with a kub. * Johan Koch PA-C - 01/27/2019 7:44 AM EST Patient ID: Patient Name: Fernando Helton Admit Date: 01/17/2019 MR #: [id number] : 1970 Current location: [facility] Physicians: Moises Patel MD (Family); Kristin BARCENAS [...] L CAD (coronary artery disease) CAD s/p [facility] with 1 stent in left main 07/2012, replaced 09/2014 Cardiac arrest with ventricular fibrillation ([facility]) 09/25/2014 CHF (congestive heart failure), NYHA class I, chronic, diastolic ([facility]) Chronic sinusitis Claudication of right lower extremity ([facility]) Cluster headache COPD (chronic obstructive pulmonary disease) ([facility]) 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 Bev Tolentino Metabolic syndrome Mood disorder ([facility]) Nasal fracture Obstructive sleep apnea noncompliant with CPAP Orthostatic dizziness with intermittent syncope Pericarditis 02/25/07; 09/23/17 Pneumomediastinum (HCC) 01/12/2007 secondary to severe coughing spell & ruptured alveoli Rotator cuff tear, right 1998 s/p repair SLAP tear of shoulder 2011 left - s/p surgery to place [address] elevation myocardial infarction (STEMI) of anterolateral wall ([facility]) 05/09/2012 anterolateral STEMI involving left anterior descending coronary artery ([facility]) 09/25/2014 anterior Superficial thrombophlebitis of right upper [...] Heart Cath; Surgeon: Carlo Mercedes MD; 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 Electronically signed by: Johan Koch PA-C, [facility] 01/27/19 7:47 AM * Kristin Walker [...] for pain KUB Serum troponin x3 CPT: 60264 * Melinda Fernandez MD - 01/26/2019 7:51 AM EST Patient ID: Patient Name: Fernando Helton Admit Date: 01/17/2019 MR #: [id number] : 1970 Current location: [facility] Physicians: Moises Patel MD (Family); Kristin BARCENAS [...] History: Diagnosis Date Acute respiratory failure ([facility]) 09/2014 requring mechanical ventilation Anxiety Bilateral lower extremity edema R > L CAD (coronary artery disease) CAD s/p [facility] with 1 stent in left main 07/2012, replaced 09/2014 Cardiac arrest with ventricular fibrillation ([facility]) 09/25/2014 CHF (congestive heart failure), NYHA class I, chronic, diastolic ([facility]) Chronic sinusitis Claudication of right lower extremity ([facility]) Cluster headache COPD (chronic obstructive pulmonary disease) ([facility]) 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 Bev Tolentino Metabolic syndrome Mood disorder ([facility]) Nasal fracture Obstructive sleep apnea noncompliant with CPAP Orthostatic dizziness with intermittent syncope Pericarditis 02/25/07; 09/23/17 Pneumomediastinum (HCC) 01/12/2007 secondary to severe coughing spell & ruptured alveoli Rotator cuff tear, right 1997 s/p repair SLAP tear of shoulder 2011 left - s/p surgery to place [address] elevation myocardial infarction (STEMI) of anterolateral wall ([facility]) 05/09/2012 anterolateral STEMI involving left anterior descending [...] Heart Cath; Surgeon: Carlo Mercedes MD; 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 Attempted to obtain an echo, but informed [...] deep breath. OBJECTIVE: Right IJ cordis with [place] catheter, right brachial arterial line, mediastinal and [...] IVPB, 1,250 mg, Intravenous, Q12H, Pallavi Barnett [facility],PharmD, Stopped at 01/24/19 2107 vancomycin per pharmacy 1 each, 1 each, Intravenous, as indicated by pharmacokinetics, Kristin Anne PA-C * Melinda Fernandez MD - 01/25/2019 7:55 AM EST Patient ID: Patient Name: Fernando Helton Admit Date: 01/17/2019 MR #: [id number] : 1970 Current location: [facility] Physicians: Moises Patel MD (Family); Kristin BARCENAS [...] L CAD (coronary artery disease) CAD s/p [facility] with 1 stent in left main 07/2012, [...] Bev Tolentino Metabolic syndrome Mood disorder ([facility]) Nasal fracture Obstructive sleep apnea noncompliant with CPAP Orthostatic dizziness with intermittent syncope Pericarditis 02/25/07; 09/23/17 Pneumomediastinum ([facility]) 01/12/2007 secondary to severe coughing spell & ruptured alveoli Rotator cuff tear, right 1997 s/p repair SLAP tear of shoulder 2011 left - s/p surgery to place [address] elevation myocardial infarction (STEMI) of anterolateral wall ([facility]) 05/09/2012 anterolateral STEMI involving left anterior descending coronary artery ([facility]) 09/25/2014 anterior Superficial thrombophlebitis of right upper [...] [place] CARDIAC CATHETERIZATION 11/24/[address] 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 Cardiac arrest with ventricular fibrillation with [place] on 09/24/2014 21. Acute respiratory failure requiring [...] on to chart N.p.o. after midnight CPT: 55463 * Delmi Donis MD - 01/23/2019 3:26 PM EST [facility] Medicine Inpatient Follow-up 01/23/2019 Delmi Donis MD [facility] Patient: Fernando Helton Date of : 1970 (48 y.o.) PCP: Moises Patel MD ASSESSMENT/PLAN: Fernando Helton 48 y.o. male presented with complains of Active Problems: Chest pain ACS (acute coronary syndrome) ([facility]) PAD (peripheral artery disease) ([facility]) PLAN: Coronary artery disease - pateint denies any chest pain. patient is status post left heart cath on 01/20 he was found to have an in-stent occlusion of the mid LAD. Cardiovascular surgery has been consulted patient scheduled for CABG on 01/24/2019, Dr. Mcneil following PAD; patient seen by vascular surgery today [place]: ABIs have been done. Recommendation follow-up in [...] Fernando Helton Admit Date: 01/17/2019 MR #: [id number] : 1970 Current location: [facility] Physicians: Moises Patel MD (Family); Kristin BARCENAS [...] 09/2014 Cardiac arrest with ventricular fibrillation ([facility]) 09/25/2014 CHF (congestive heart failure), NYHA class I, chronic, diastolic ([facility]) Chronic sinusitis Claudication of right lower extremity ([facility]) Cluster headache COPD (chronic obstructive pulmonary disease) ([facility]) 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 Bev Tolentino Metabolic syndrome Mood disorder ([facility]) Nasal fracture Obstructive sleep apnea noncompliant with CPAP Orthostatic dizziness with intermittent syncope Pericarditis 02/25/07; 09/23/17 Pneumomediastinum ([facility]) 01/12/2007 secondary to severe coughing spell & ruptured alveoli Rotator cuff tear, right 1997 s/p repair SLAP tear of shoulder 2011 left - s/p surgery to place [address] elevation myocardial infarction (STEMI) of anterolateral wall ([facility]) 05/09/2012 anterolateral STEMI involving left anterior descending coronary artery ([facility]) 09/25/2014 anterior Superficial thrombophlebitis of right upper [...] Heart Cath; Surgeon: Carlo Mercedes MD; 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 Cardiac arrest with ventricular fibrillation with [place] on 09/24/2014 21. Acute respiratory failure requiring [...] on to chart N.p.o. 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 He is from home with a spouse. Hehad a heart cath on 01/20 and is a consult with cardiovascular surg and had now been scheduled for aCABG on 01/24. Will follow for any discharge need. * Delmi Donis MD - 01/22/2019 10:05 AM EST [facility] Medicine Inpatient Follow-up 01/22/2019 Delmi Donis MD [facility] Patient: Fernando Helton Date of : 1970 (48 y.o.) PCP: Moises Patel MD ASSESSMENT/PLAN: Fernando Helton 48 y.o. male presented with complains of Active Problems: Chest pain ACS (acute coronary syndrome) (HCC) PAD (peripheral artery disease) ([facility]) PLAN: Chest pain; intermittent, continue to monitor on telemetry; patient is status post left heart cath on 01/20 he was found to have an in-stent occlusion of the mid LAD. Cardiovascular surgery has been consulted Coronary artery disease; cardiovascular surgery has patient was scheduled for CABG on 01/24/2019, Dr. Mcneil following PAD; patient seen by vascular surgery today [place]: ABIs have been done. Recommendation follow-up in [...] 01/22/2019 8:52 AM EST Cardiology Progress Note [facility]ascular Physicians Cardiology Sign-Off [...] have been negative, EKG showed old anterolateral [place] with mild ST-T changes with d-dimer negative [...] Fernando Helton Admit Date: 01/17/2019 MR #: [id number] : 1970 Current location: [facility] Physicians: Moises Patel MD (Family); Kristin BARCENAS [...] History: Diagnosis Date Acute respiratory failure ([facility]) 09/2014 requring mechanical ventilation Anxiety Bilateral lower extremity edema R > L CAD (coronary artery disease) CAD s/p [facility] with 1 stent in left main 07/2012, replaced 09/2014 Cardiac arrest with ventricular fibrillation ([facility]) 09/25/2014 CHF (congestive heart failure), NYHA class I, chronic, diastolic ([facility]) Chronic sinusitis Claudication of right lower extremity ([facility]) Cluster headache COPD (chronic obstructive pulmonary disease) ([facility]) 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 Cardiac arrest with ventricular fibrillation with [place] on 09/24/2014 21. Acute respiratory failure requiring [...] General Cardiology Inpatient Follow-up Heart & Vascular [facility] 01/21/2019 Columba Rodriguez CNP [facility] Patient: Fernando Helton Date of : 1970 (48 y.o.) Referring Provider: No ref. provider found PCP: Moises Patel MD Assessment/Plan: ACS (acute coronary syndrome) ([facility]) Assessment & Plan Patient had presented 01/20/2019 with chest tightness associated with nausea and shortness of breath. Occasionally discomfort would radiate into the left jaw. Serial troponins have been negative, EKG shows old anterolateral [place] with mild ST-T changes with d-dimer negative [...] Bev Tolentino Metabolic syndrome Mood disorder ([facility]) Nasal fracture Obstructive sleep apnea noncompliant with CPAP Orthostatic dizziness with intermittent syncope Pericarditis 02/25/07; 09/23/17 Pneumomediastinum ([facility]) 01/12/2007 secondary to severe coughing spell & ruptured alveoli Rotator cuff tear, right 1998 s/p repair SLAP tear of shoulder 2011 left - s/p surgery to place [address] elevation myocardial infarction (STEMI) of anterolateral wall ([facility]) 05/09/2012 anterolateral STEMI involving left anterior descending coronary artery ([facility]) 09/25/2014 anterior Superficial thrombophlebitis of right upper [...] Heart Cath; Surgeon: Carlo Mercedes MD; Location: [employer] HAND[employer] 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 Confirmed by Brandy Kc ([id number]) on 01/17/2019 12:18:52 PM Columba Rodriguez CNP * Ashley Caruso CNP - 01/21/2019 12:30 PM EST [facility] Medicine Inpatient Follow-up 01/21/2019 Ashley Caruso CNP [facility] Patient: Fernando Helton Date of : 1970 (48 y.o.) PCP: Moises Patel MD ASSESSMENT/PLAN: Fernando Helton 48 y.o. male presented with complains of Active Problems: Chest pain ACS (acute coronary syndrome) ([facility]) PAD (peripheral artery disease) ([facility]) PLAN: Chest pain; intermittent, continue to monitor [...] PAD; patient seen by vascular surgery today [place]: ABIs have been done. Recommendation follow-up in [...] 5' 7 Wt 116.6 kg (257 lb) NdM030% BMI 40.25 kg/m General Appearance: Alert, well [...] Medicine Inpatient H&P 01/20/2019 Jacinda Navarro CNP [facility] Patient: Fernando Helton Date of : [...] Chest pain ACS (acute coronary syndrome) ([facility]) Plan: Will admit patient to the telemetry [...] L CAD (coronary artery disease) CAD s/p [facility] with 1 stent in left main 07/2012, [...] Bev Tolentino Metabolic syndrome Mood disorder ([facility]) Nasal fracture Obstructive sleep apnea noncompliant with [...] Medicine Inpatient H&P 01/19/2019 Jacinda Navarro CNP [facility] Patient: Fernando Helton Date of : [...] leg COPD (chronic obstructive pulmonary disease) ([facility]) Fatigue GERD (gastroesophageal reflux disease) Headache HLD (hyperlipidemia) HTN (hypertension) Metabolic syndrome Mood disorder ([facility]) Obstructive sleep apnea Pneumomediastinum ([facility]) 01/2007 Rotator cuff tear, right 1997 s/p repair SLAP tear of shoulder 2011 left - s/p surgery to place [address] elevation myocardial infarction (STEMI) of anterolateral wall ([facility]) 05/09/12 Past Surgical History: Procedure Laterality Date [...] Medicine Inpatient H&P 01/18/2019 Jacinda Navarro CNP [facility] Patient: Fernando Helton Date of : [...] leg COPD (chronic obstructive pulmonary disease) ([facility]) Fatigue GERD (gastroesophageal reflux disease) Headache HLD (hyperlipidemia) HTN (hypertension) Metabolic syndrome Mood disorder ([facility]) Obstructive sleep apnea Pneumomediastinum ([facility]) 01/2007 Rotator cuff tear, right 1997 s/p repair SLAP tear of shoulder 2011 left - s/p surgery to place [address] elevation myocardial infarction (STEMI) of anterolateral wall ([facility]) 05/09/12 Past Surgical History: Procedure Laterality Date [...] General Cardiology Clinic Follow-up Heart & Vascular [facility] 12/26/2018 Maykel Whitney MD [address] [place] [address] Medical Office [facility] [id number] Patient: Fernando Helton Date of : 1970 (48 y.o.) PCP: Moises Patel MD Assessment & Plan Heart failure ([facility]) I believe he has acute on chronic [...] Final Result by Magda Durán MD (12/10/2018 8912) Review of Systems: Review of Systems Constitution: [...] than 130 mmHg. TANNER PALMA [email or web address], [email or web address] Staff Neurologist & Movement Disorder Specialist [facility] (Adj Asst: Professor, [employer] Dept of Neurology) ELLIOT Peterson [id number], [facility] [address] [facility] Fax: [phone] documented in this encounter Summary Purpose Family History No Family History Records FoundNo Family History Records FoundNo Family History Records FoundNo Family History Records FoundNo Family History Records FoundNo Family History Records FoundNo Family History Records FoundNo Family History Records FoundNo Family History Records Found Advance Directives No Advanced Directives Records FoundDocuments on File Type Date Recorded Patient [employer] Officer Expl anation Advance Directives and Livin g Will 09/27/2018 7:30 PM Documents on File Type Date Recorded Patient [employer] Officer Expl anation Advance Directives and Livin g Will 12/18/2018 10:26 AM Documents on File Type Date Recorded Patient [employer] Officer Expl anation Advance Directives and Livin g Will 01/17/2019 12:26 PM Latest Code Status on File Code Status Date Activated Date Inactivated Comments Full Code 01/20/2019 9:05 AM Full Code - Unverified 01/17/2019 4:34 PM 01/20/2019 9:0 5 AM Documents on File Type Date Recorded Patient [employer] Officer Expl anation Advance Directives and Livin g Will 01/31/2019 8:54 AM Latest Code Status on File Code Status Date Activated Date Inactivated Comments Full Code 01/24/2019 10:19 AM Full Code 01/20/2019 9:05 AM 01/24/2019 10:19 AM Full Code - Unverified 01/17/2019 4:34 PM 01/20/2019 9:0 5 AM Documents on File Type Date Recorded Patient [employer] Officer Expl anation Advance Directives and Livin g Will 02/02/2019 9:03 AM Latest Code Status on File Code Status Date Activated Date Inactivated Comments Full Code 02/02/2019 10:37 AM Full Code 01/24/2019 10:19 AM 02/02/2019 10:22 AM Full Code 01/20/2019 9:05 AM 01/24/2019 10:19 AM Documents on File Type Date Recorded Patient [employer] Officer Expl anation Advance Directives and Livin g Will 02/06/2019 12:35 PM Latest Code Status on File Code Status Date Activated Date Inactivated Comments Full Code 02/02/2019 10:37 AM Full Code 01/24/2019 10:19 AM 02/02/2019 10:22 AM Documents on File Type Date Recorded Patient [employer] Officer Expl anation Advance Directives and Livin g Will 02/13/2019 8:39 AM Documents on File Type Date Recorded Patient [employer] Officer Expl anation Advance Directives and Livin g Will 02/21/2019 8:55 AM Documents on File Type Date Recorded Patient [employer] Officer Expl anation Advance Directives and Livin g Will 02/25/2019 8:52 PM Latest Code Status on File Code Status Date Activated Date Inactivated Comments Full Code 02/02/2019 10:37 AM 02/25/2019 8:18 PM Documents on File Type Date Recorded Patient [employer] Officer Expl anation Advance Directives and Livin g Will 02/25/2019 8:52 PM Latest Code Status on File Code Status Date Activated Date Inactivated Comments Full Code 02/02/2019 10:37 AM 02/25/2019 8:18 PM Documents on File Type Date Recorded Patient [employer] Officer Expl anation Advance Directives and Livin g Will 03/13/2019 10:55 AM Documents on File Type Date Recorded Patient [employer] Officer Expl anation Advance Directives and Livin g Will 03/13/2019 10:55 AM Documents on File Type Date Recorded Patient [employer] Officer Expl anation Advance Directives and Livin g Will 09/22/2019 9:34 AM Latest Code Status on File Code Status Date Activated Date Inactivated Comments Full Code 09/22/2019 10:48 AM 09/23/2019 7:50 PM Full Code 02/02/2019 10:37 AM 02/25/2019 8:18 PM Documents on File Type Date Recorded Patient [employer] Officer Expl anation Advance Directives and Livin g Will 10/15/2019 10:09 PM Latest Code Status on File Code Status Date Activated Date Inactivated Comments Full Code 10/16/2019 12:56 AM 10/16/2019 6:18 PM Full Code 09/22/2019 10:48 AM 09/23/2019 7:50 PM Documents on File Type Date Recorded Patient [employer] Officer Expl anation Advance Directives and Livin g Will 12/10/2018 7:30 PM Documents on File Type Date Recorded Patient [employer] Officer Expl anation Advance Directives and Livin g Will 10/15/2019 10:09 PM Latest Code Status on File Code Status Date Activated Date Inactivated Comments Full Code 10/16/2019 12:56 AM 10/16/2019 6:18 PM Full Code 09/22/2019 10:48 AM 09/23/2019 7:50 PM Full Code 02/02/2019 10:37 AM 02/25/2019 8:18 PM Documents on File Type Date Recorded Patient [employer] Officer Expl anation Advance Directives and Livin g Will 01/17/2019 12:26 PM Documents on File Type Date Recorded Patient State Patrol Officer Expl anation Advance Directives and Livin g Will 01/04/2019 5:09 PM Documents on File Type Date Recorded Patient State Patrol Officer Expl anation Advance Directives and Livin g Will 12/18/2018 10:26 AM Documents on File Type Date Recorded Patient State Patrol Officer Expl anation Advance Directives and Livin g Will 09/22/2019 9:34 AM Latest Code Status on File Code Status Date Activated Date Inactivated Comments Full Code 09/22/2019 10:48 AM 09/23/2019 7:50 PM Documents on File Type Date Recorded Patient State Patrol Officer Expl anation Advance Directives and Livin g Will 05/28/2020 3:48 PM Documents on File Type Date Recorded Patient State Patrol Officer Expl anation Advance Directives and Livin g Will 05/28/2020 3:48 PM Documents on File Type Date Recorded Patient State Patrol Officer Expl anation Advance Directives and Livin g Will 06/02/2020 3:48 PM Latest Code Status on File Code Status Date Activated Date Inactivated Comments Full Code - Unverified 06/02/2020 8:25 AM 06/02/2020 5:1 8 PM Full Code 10/16/2019 12:56 AM 10/16/2019 6:18 PM Documents on File Type Date Recorded Patient State Patrol Officer Expl anation Advance Directives and Livin g Will 06/10/2020 3:48 PM Documents on File Type Date Recorded Patient State Patrol Officer Expl anation Advance Directives and Livin g Will 06/10/2020 3:48 PM Latest Code Status on File Code Status Date Activated Date Inactivated Comments Full Code - Unverified 06/02/2020 8:25 AM 06/02/2020 5:1 8 PM Full Code 10/16/2019 12:56 AM 10/16/2019 6:18 PM Documents on File Type Date Recorded Patient State Patrol Officer Expl anation Advance Directives and Livin g Will 08/06/2020 3:48 PM Documents on File Type Date Recorded Patient State Patrol Officer Expl anation Advance Directives and Livin g [...] December 07, 2022 2:37pm Hospital Course Note [facility] [address] [place] [address] NAME FERNANDO HELTON [facility] [id number] 1970 ADMIT 09/23/2017 DISCH 09/25/2017 DISCHARGE SUMMARY [...] Log into your personal health record on [email or web address] and enter K111 in the Education box to learn more about Using a Metered-Dose Inhaler: Care Instructions. Current as of: October 17, 2017 Content Version: .[id number] [employer]. Care instructions adapted under license by your healthcare professional. If you have questions about a medical condition or this instruction, always ask your healthcare professional. [employer] disclaims any warranty or liability for your [...] Log into your personal health record on [email or web address] and enter U629 in the Education box to learn more about Learning About Chronic Bronchitis. Current as of: October 17, 2017 Content Version: [id number] [employer]. Care instructions adapted under license by your healthcare professional. If you have questions about a medical condition or this instruction, always ask your healthcare professional. [employer] disclaims any warranty or liability for your use of this information. Please take your breathing treatments every 4-6 hours as directed. * Attachments The following attachments cannot be sent through Care Everywhere. * COPD Exacerbation Plan (Venezuelan) documented in this encounter* Discharge Instr - AVS First Page* Kristin Byrnes PA-C - 01/23/2019 9:08 AM EST ALL ORDERS PER Dr. Neo Mcneil AND HIS TEAM ONLY. CALL CARDIAC SURGERY FOR ANY QUESTIONS/CONCERNSAT [phone], (OPTION #3 after 5 PM and on [...] Fernandez's office 4. Dr. Fernandez's phone number: [phone] Fernandez's fax number: [phone] HISTORY OF CONGESTIVE HEART FAILURE: 1. Check: [...] Fernandez's office 4. Dr. Fernandez's phone number: [phone] Fernandez's fax number: [phone] HISTORY OF CONGESTIVE HEART FAILURE: 1. Check: [...] be sent through Care Everywhere. * Pleurisy (Venezuelan) documented in this encounter* Instructions* Brian Cordoba MD - 01/04/2019 prednisone for 5 days; and DuoNeb; stay away from passive smoking; follow-up with the PCP * Attachments The following attachments cannot be sent through Care Everywhere. * COPD: General Info (Venezuelan) documented in this encounter* Discharge Instr - IP OT* Magda Brito OTR/Priyanka - 09/23/2019 3:39 PM EDT No further occupational therapy is needed. documented in this encounter Reason for Referral Status Reason Specialty Diagnoses / Procedures Referred By Contact Referred To Contact Pending Review Cardiology Diagnoses S/P CABG (coronary artery bypass graft) Procedures Stress test only, exercise Carlo Mercedes MD [address] [place] [address] Status Reason Specialty Diagnoses / Procedures Referred By Contact Referred To Contact Authorized Cardiology Diagnoses Coronary artery disease involving [place] coronary artery of [place] heart without angina pectoris Procedures Echocardiogram complete Anita Rowland MD [address] [place] [address] Status Reason Specialty Diagnoses / Procedures Referred By Contact Referred To Contact Authorized Cardiology Diagnoses TIA (transient ischemic attack) Procedures Cardiac event monitor Anita Rowland MD [address] [place] [address] Status Reason Specialty Diagnoses / Procedures Referre d By Contact Referred To Contact Closed Cardiology Diagnoses TIA (transient ischemic attack) Procedures Cardiac event monitor Anita Rowland MD [address] [place] [address] Status Reason Specialty Diagnoses / Procedures Referred By Contact Referred To Contact Authorized Radiology Diagnoses Chronic systolic congestive heart failure (HCC) Procedures MR Cardiac Morphology With And Without Contrast with Velocity Flow Patricia Louis, CHRISTIAN [address] [place] [address] Status Reason Specialty Diagnoses / Procedures Referre d By Contact Referred To Contact Closed Radiology Diagnoses NSVT (nonsustained ventricular tachycardia) ([facility]) Abnormal EKG Procedures NM Myocardial Perfusion Multiple SPECT Anita Rowland MD [address] [place] [address] Status Reason Specialty Diagnoses / Procedures Re ferred By Contact Referred To Contact Closed Cardiology Diagnoses Other specified complications of surgical and medical care, not elsewhere classified, initial encounter Procedures Ultrasound duplex arterial arm left Anita Rowland MD [address] [place] [address] Status Reason Specialty Diagnoses / Procedures Referred By Contact Referred To Contact Pending Review Cardiology Diagnoses Other specified complications of surgical and medical care, not elsewhere classified, initial encounter Procedures Ultrasound duplex arterial arm left Anita Rowland MD [address] [place] [address] Chief Complaint and Reason for Visit Chief [...] with Velocity Flow Patricia Louis CNS [address] [place] [address] Status Reason Specialty Diagnoses / Procedures Referre [...] artery bypass graft) Kristin Walker PA-C [address] [place] [address] Cardio Pulm [address] [place] [address] Status Reason Specialty Diagnoses / Procedures Referred By Contact Referred To Contact Pending Review Cardiology Diagnoses S/P CABG (coronary artery bypass graft) Procedures Stress test only, exercise Carlo Mercedes MD [address] [place] [address] Reason Comments Heart Problem Status Reason Specialty Diagnoses / Procedures Referred By Contact Referred To Contact Authorized Specialty Services Required/Patie nt's Best Interest Cardiac Rehabilitation Diagnoses S/P CABG (coronary artery bypass graft) Kristin Walker PA-C [address] [place] [address] Cardio Pulm [address] [place] [address] Reason Comments Follow-up Follow up/Swelling Reason Comments Follow-up Overdue 6 monhth Status Reason Specialty Diagnoses / Procedures Referre d By Contact Referred To Contact Diagnoses Near syncope Status Reason Specialty Diagnoses / Procedures Referred By Contact Referred To Contact Pending Review Cardiology Diagnoses Chronic systolic heart failure (HCC) Hypertension, unspecified type Coronary artery disease involving [place] coronary artery of [place] heart without angina pectoris Procedures Echocardiogram complete w contrast Echocardiogram complete Patricia Louis CNS [address] [place] [address] Reason Onset Date Comments Medication Refill 04/12/2020 Reason Onset Date Comments Medication Refill 04/13/2020 Status Reason Specialty Diagnoses / Procedures Referred By Contact Referred To Contact Authorized Radiology Diagnoses Chronic systolic congestive heart failure (HCC) Procedures MR Cardiac Morphology With And Without Contrast with Velocity Flow Patricia Louis, FELLER BUNCHER OPERATOR [address] [place] [address] Status Reason Specialty Diagnoses / Procedures Referre [...] Contact Diagnoses Acute CVA (cerebrovascular accident) ([facility]) TIA (transient ischemic attack) Status Reason Specialty Diagnoses / Procedures Referre d By Contact Referred To Contact Closed Radiology Diagnoses NSVT (nonsustained ventricular tachycardia) ([facility]) Abnormal EKG Procedures NM Myocardial Perfusion Multiple SPECT Anita Rowland MD [address] [place] [address] Status Reason Specialty Diagnoses / Procedures Referre [...] arterial arm left Anita Rowland MD [address] [place] [address] Reason Onset Date Comments Medication Refill 06/10/2020 Status Reason Specialty Diagnoses / Procedures Referred By Contact Referred To Contact Pending Review Cardiology Diagnoses Other specified complications of surgical and medical care, not elsewhere classified, initial encounter Procedures Ultrasound duplex arterial arm left Anita Rowland MD [address] [place] [address] Reason Comments Medication Refill Reason Onset Date [...] section and content) DATE CREATED AUTHOR 03/14/2018 [facility] DATE CREATED AUTHOR AUTHOR'S ORGANIZ ATION 04/27/2020 [facility] DATE CREATED AUTHOR AUTHOR'S ORGANIZ ATION 05/23/2020 [facility] DATE CREATED AUTHOR AUTHOR'S ORGANIZ ATION 04/28/2021 [facility] DATE CREATED AUTHOR AUTHOR'S ORGANIZ ATION 11/12/2021 [facility] DATE CREATED AUTHOR AUTHOR'S ORGANIZ ATION 11/14/2021 [facility] DATE CREATED AUTHOR AUTHOR'S ORGANIZ ATION 01/02/2022 [facility] DATE CREATED AUTHOR AUTHOR'S ORGANIZ ATION 06/23/2022 [facility] DATE CREATED AUTHOR AUTHOR'S ORGANIZ ATION 12/20/2022 [facility] Annie Kapadia RN - 09/27/2018 8:19 PM Annie Fu RN - 09/27/2018 8:17 PM Nathanael Pavon MD - 09/27/2018 8:13 PM Annie Fu RN - 09/27/2018 7:48 PM EDT ED Notes (unrecognized secti on and content) Adjusted PT in bed Physician at bedside. Updated PT on medical plan. Associated Order(s): ECG 12 Lead ED PROVIDER NOTE [facility] NAME: Fernando Helton AGE: 48 y.o. : 1970 VISIT DATE: 09/27/2018 CSN: [id number] PCP: Moises Patel MD Chief Complaint Patient [...] 1998 CAD (coronary artery disease) CAD s/p [facility] with 1 stent in left main 07/2012, [...] file Gets together: Not on file Attends pentecostalism service: Not on file Active member of [...] ms QTC Calculation (Bezet) 425 ms P [place] 62 degrees R [place] 0 degrees T [place] 72 degrees POC Basic Metabolic Panel Result [...] Family Medicine Why: If symptoms worsen [address] [facility] [address] Contact information for after-discharge care Follow-up information [...] SIMILAR TO WHEN HE HAD HIS PRIOR FL. PT LOCATES IT IN THE MIDDLE OF HIS CHEST AND RADIATES TO HIS BACK AND JAW. PT STATES HE IS SOB, SUFFERS COPD BUT NOT O2 DEPENDANT. PT IS ABLE TO SPEAK IN COMPLETE SENTENCES WITHOUT DIFFICULTY. PT DOES HAVE SOME AUDIBLE WHEEZING. PT IS WARM AND DRY ED PROVIDER NOTE [facility] EM[facility]MENT NAME: Fernando Helton AGE: 48 y.o. : 1970 VISIT DATE: 01/17/2019 CSN: [id number] PCP: Moises Patel MD Chief Complaint Patient [...] leg COPD (chronic obstructive pulmonary disease) ([facility]) Fatigue GERD (gastroesophageal reflux disease) Headache HLD (hyperlipidemia) HTN (hypertension) Metabolic syndrome Mood disorder ([facility]) Obstructive sleep apnea Pneumomediastinum ([facility]) 01/2007 Rotator cuff tear, right 1997 s/p repair SLAP tear of shoulder 2011 left - s/p surgery to place [address] elevation myocardial infarction (STEMI) of anterolateral wall ([facility]) 05/09/12 Past Surgical History: Procedure Laterality Date [...] file Gets together: Not on file Attends pentecostalism service: Not on file Active member of [...] ms QTC Calculation (Bezet) 425 ms P [place] 67 degrees R [place] 2 degrees T [place] 65 degrees CBC Auto Differential Result Value [...] rhythm rate of 73 beats per minutes WA interval 164 ms QRS duration 86 ms [...] MESSAGE FOR HER TO CALL BACK. 22:53 [facility] ED Physician Note: NAME: Fernando Helton 48 y.o. CSN: [id number] PCP: Moises Patel MD History: Chief Complaint: Shortness of Breath HPI: The history was obtained from the patient. He is a 48 y.o. male who presents with a chief complaint of Shortness of Breath. Patient reports that he underwent coronary artery bypass grafting over 4 weeks ago here at [facility]. Patient reports that around 1 PM he developed sudden onset of dyspnea. Patient reports this to be accompanied by left lung discomfort. Patient describes discomfort as sharp. Shortness of breath is present at rest and worsens with movement. PMHx: Past Medical History: Diagnosis Date Acute respiratory failure ([facility]) 09/2014 requring mechanical ventilation Anxiety Bilateral lower extremity edema R > L CAD (coronary artery disease) CAD s/p [facility] with 1 stent in left main 07/2012, replaced 09/2014 Cardiac arrest with ventricular fibrillation ([facility]) 09/25/2014 CHF (congestive heart failure), NYHA class I, chronic, diastolic ([facility]) Chronic sinusitis Claudication of right lower extremity ([facility]) Cluster headache COPD (chronic obstructive pulmonary disease) ([facility]) 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 Effient Deviated [...] myocardial infarction (STEMI) of anterolateral wall ([facility]) 05/09/2012 anterolateral STEMI involving left anterior descending coronary artery ([facility]) 09/25/2014 anterior Superficial thrombophlebitis of right upper [...] Heart Cath; Surgeon: Carlo Mercedes MD; Location: [employer]PER[facility]; Service: Cardiovascular IABP placement 05/09/2012 by [...] file Gets together: Not on file Attends pentecostalism service: Not on file Active member of [...] Procedure Abnormality Status --------- ------ CBC Auto Differential[[id number]] Abnormal Final result Please view results for [...] No diagnosis found. Disposition: Fausto Alejandro M.D. [facility] Emergency Department Fausto Alejandro MD 02/25/19 2249 PT STATES SHORTNESS OF BREATH STARTED AT 1PM TODAY, WITH LEFT SIDE BACK PAIN, PT STATES HAD BYPASS SURGERY FIVE WEEKS AGO AND AT THAT TIME HAD FLUID AROUND LEFT LUNG AND THIS FEELS LIKE THAT Bed: 09 Expected date: Expected time: Means of arrival: Comments: 2nd patient documented in this encounter ED PROVIDER NOTE [facility] EMERGENCY DEPARTMENT NAME: Fernando Helton AGE: 49 y.o. : 1970 VISIT DATE: 10/15/2019 CSN: [id number] PCP: Moises Patel MD Chief Complaint Patient [...] Bev Tolentino Metabolic syndrome Mood disorder ([facility]) Nasal fracture Obstructive sleep apnea noncompliant with CPAP Orthostatic dizziness with intermittent syncope Pericarditis 02/25/07; 09/23/17 Pneumomediastinum ([facility]) 01/12/2007 secondary to severe coughing spell & ruptured alveoli Rotator cuff tear, right 1998 s/p repair SLAP tear of shoulder 2011 left - s/p surgery to place [address] elevation myocardial infarction (STEMI) of anterolateral wall ([facility]) 05/09/2012 anterolateral STEMI involving left anterior descending coronary artery ([facility]) 09/25/2014 anterior Superficial thrombophlebitis of right upper [...] Heart Cath; Surgeon: Carlo Mercedes MD; 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 Coordination: [id number]-[id number]-Okczzl Test normal. Psychiatric: Attention and Perception: Attention [...] ms QTC Calculation (Bezet) 461 ms P [place] 61 degrees R [place] -4 degrees T [place] 80 degrees POC Glucose Result Value Ref [...] Order(s): ECG 12- Lead ED PROVIDER NOTE [facility] NAME: Fernando Helton AGE: 48 y.o. : 1970 VISIT DATE: 01/04/2019 CSN: [id number] PCP: Moises Patel MD Chief Complaint Patient presents with Shortness of Breath x2 months CC: Waxing and waning shortness of breath x2 months HPI: Patient with a past medical history of COPD; presented to the ER with waxing and waning shortness of breath going on for 2 months; no significant expectoration; shortness of breath gets worse after ambulation; patient also history of FL in the past requiring stent placement 2012 and 2014; patient follows up with the behavioral interventionist; recently had echocardiogram; that as per him shows ejection fraction around 46%; recently had a cardiac MRI; behavioral interventionist thinks that he does not have CHF; patient does have a leg edema; and has been prescribed hydrochlorothiazide; which she has been taking; but still getting short of breath; experiences of wheezing; use albuterol and nebulization; not feeling better; no fever no chills Past Medical History: Diagnosis Date Ankle swelling Anxiety Appendicitis 1998 s/p appendectomy 1998 CAD (coronary artery disease) CAD s/p [facility] with 1 stent in left main 07/2012, replaced 09/2014 Chest pain Circulation problem right leg COPD (chronic obstructive pulmonary disease) ([facility]) Fatigue GERD (gastroesophageal reflux disease) Headache HLD (hyperlipidemia) HTN (hypertension) Metabolic syndrome Mood disorder ([facility]) Obstructive sleep apnea Pneumomediastinum ([facility]) 01/2007 Rotator cuff tear, right 1997 s/p repair SLAP tear of shoulder 2011 left - s/p surgery to place [address] elevation myocardial infarction (STEMI) of anterolateral wall ([facility]) 05/09/12 Past Surgical History: Procedure Laterality Date [...] file Gets together: Not on file Attends pentecostalism service: Not on file Active member of [...] Date/Time: 01/04/2019 6:25 PM Performed by: Brian Codroba MD Authorized by: Brian Cordoba MD Rhythm: [...] with signage outside this patient's room. This youth career specialist performs hand hygiene and enters the patient [...] Wu on virtual screen ED PROVIDER NOTE [facility] EMERGENCY DEPARTMENT NAME: Fernando Helton AGE: 49 y.o. : 1970 VISIT DATE: 09/22/2019 CSN: [id number] PCP: Moises Patel MD Chief Complaint Patient [...] L CAD (coronary artery disease) CAD s/p [facility] with 1 stent in left main 07/2012, replaced 09/2014 Cardiac arrest with ventricular fibrillation ([facility]) 09/25/2014 CHF (congestive heart failure), NYHA class I, chronic, diastolic ([facility]) Chronic sinusitis Claudication of right lower extremity ([facility]) Cluster headache COPD (chronic obstructive pulmonary disease) ([facility]) 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 Bve Tolentino Metabolic syndrome Mood disorder ([facility]) Nasal fracture Obstructive sleep apnea noncompliant with CPAP Orthostatic dizziness with intermittent syncope Pericarditis 02/25/07; 09/23/17 Pneumomediastinum ([facility]) 01/12/2007 secondary to severe coughing spell & ruptured alveoli Rotator cuff tear, right 1998 s/p repair SLAP tear of shoulder 2011 left - s/p surgery to place [address] elevation myocardial infarction (STEMI) of anterolateral wall ([facility]) 05/09/2012 anterolateral STEMI involving left anterior descending coronary artery ([facility]) 09/25/2014 anterior Superficial thrombophlebitis of right upper extremity 12/26/2006 Past Surgical History: Procedure Laterality Date APPENDECTOMY 1998 BONE MARROW BIOPSY W/ ASPIRATION Left 11/27/2016 L posterior iliac crest; Dr. 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; Service: Cardiovascular IABP placement 05/09/2012 by [...] file Gets together: Not on file Attends pentecostalism service: Not on file Active member of [...] normal sinus rhythm rate of 67 bpm WA interval 172 ms QRS duration 86 ms [...] Fernando Helton Admit Date: [id number] MR #: [id number] : 1970 Physicians: Moises Patel MD (Family); [...] History: Diagnosis Date Acute respiratory failure ([facility]) 09/2014 requring mechanical ventilation Anxiety Bilateral lower extremity edema R > L CAD (coronary artery disease) CAD s/p [facility] with 1 stent in left main 07/2012, replaced 09/2014 Cardiac arrest with ventricular fibrillation ([facility]) 09/25/2014 CHF (congestive heart failure), NYHA class I, chronic, diastolic ([facility]) Chronic sinusitis Claudication of right lower extremity ([facility]) Cluster headache COPD (chronic obstructive pulmonary disease) ([facility]) 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 Bev Tolentino Metabolic syndrome Mood disorder ([facility]) Nasal fracture Obstructive sleep apnea noncompliant with CPAP Orthostatic dizziness with intermittent syncope Pericarditis 02/25/07; 09/23/17 Pneumomediastinum ([facility]) 01/12/2007 secondary to severe coughing spell & ruptured alveoli Rotator cuff tear, right 1997 s/p repair SLAP tear of shoulder 2011 left - s/p surgery to place [address] elevation myocardial infarction (STEMI) of anterolateral wall ([facility]) 05/09/2012 anterolateral STEMI involving left anterior descending coronary artery ([facility]) 09/25/2014 anterior Superficial thrombophlebitis of right upper extremity 12/26/2006 Past Surgical History: Procedure Laterality Date APPENDECTOMY 1998 BONE MARROW BIOPSY W/ ASPIRATION Left 11/27/2016 L posterior iliac crest; Dr. 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 Bev Tolentino Metabolic syndrome Mood disorder ([facility]) Nasal fracture Obstructive sleep apnea noncompliant with CPAP Orthostatic dizziness with intermittent syncope Pericarditis 02/25/07; 09/23/17 Pneumomediastinum ([facility]) 01/12/2007 secondary to severe coughing spell & ruptured alveoli Rotator cuff tear, right 1998 s/p repair SLAP tear of shoulder 2011 left - s/p surgery to place [address] elevation myocardial infarction (STEMI) of anterolateral wall ([facility]) 05/09/2012 anterolateral STEMI involving left anterior descending coronary artery ([facility]) 09/25/2014 anterior Superficial thrombophlebitis of right upper [...] Heart Cath; Surgeon: Carlo Mercedes MD; 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 Associated Order(s): IP CONSULT TO BIOFUELS PRODUCT MANAGER Met with patient for Diabetes self [...] a barrier and family/caregiver support is a foot gatherer for return to prior level of function. The patient's education level is a foot gatherer and awareness of own capacity and performance is a foot gatherer to return to prior level of function. 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 Past Medical History: Diagnosis Date Acute respiratory failure (HCC) 09/2014 requring mechanical ventilation Anxiety Bilateral lower extremity edema R > L CAD (coronary artery disease) CAD s/p [facility] with 1 stent in left main 07/2012, replaced 09/2014 Cardiac arrest with ventricular fibrillation ([facility]) 09/25/2014 CHF (congestive heart failure), NYHA class I, chronic, diastolic ([facility]) Chronic sinusitis Claudication of right lower extremity ([facility]) Cluster headache COPD (chronic obstructive pulmonary disease) ([facility]) 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 Bev Tolentino Metabolic syndrome Mood disorder ([facility]) Nasal fracture Obstructive sleep apnea noncompliant with CPAP Orthostatic dizziness with intermittent syncope Pericarditis 02/25/07; 09/23/17 Pneumomediastinum ([facility]) 01/12/2007 secondary to severe coughing spell & ruptured alveoli Rotator cuff tear, right 1997 s/p repair SLAP tear of shoulder 2011 left - s/p surgery to place [address] elevation myocardial infarction (STEMI) of anterolateral wall ([facility]) 05/09/2012 anterolateral STEMI involving left anterior descending coronary artery ([facility]) 09/25/2014 anterior Superficial thrombophlebitis of right upper [...] Heart Cath; Surgeon: Carlo Mercedes MD; 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 provider found (referring) Assessment and Plan: PAD (peripheral artery disease) ([facility]) Assessment & Plan Vascular was consulted regarding [...] myocardial infarction (STEMI) of anterolateral wall ([facility]) 05/09/2012 anterolateral STEMI involving left anterior descending coronary artery ([facility]) 09/25/2014 anterior Superficial thrombophlebitis of right upper [...] file Gets together: Not on file Attends pentecostalism service: Not on file Active member of [...] Fernando Helton Admit Date: 01/17/2019 MR #: [id number] : 1970 Current location: [facility] Physicians: Moises Patel MD (Family); Kristin BARCENAS [...] 09/2014 Cardiac arrest with ventricular fibrillation ([facility]) 09/25/2014 CHF (congestive heart failure), NYHA class I, chronic, diastolic ([facility]) Chronic sinusitis Claudication of right lower extremity ([facility]) Cluster headache COPD (chronic obstructive pulmonary disease) ([facility]) 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 Bev Tolentino Metabolic syndrome Mood disorder ([facility]) Nasal fracture Obstructive sleep apnea noncompliant with CPAP Orthostatic dizziness with intermittent syncope Pericarditis 02/25/07; 09/23/17 Pneumomediastinum ([facility]) 01/12/2007 secondary to severe coughing spell & ruptured alveoli Rotator cuff tear, right 1997 s/p repair SLAP tear of shoulder 2011 left - s/p surgery to place [address] elevation myocardial infarction (STEMI) of anterolateral wall ([facility]) 05/09/2012 anterolateral STEMI involving left anterior descending coronary artery ([facility]) 09/25/2014 anterior Superficial thrombophlebitis of right upper [...] Eliquis for in-stent thrombosis, who presented to [facility] emergency department on 01/17/2019 with worsening chest [...] Melanoma Brother SOCIAL HISTORY: Patient resides in [place] in a two-story home with approximately 15 [...] file Gets together: Not on file Attends pentecostalism service: Not on file Active member of [...] and diaphoresis. On 01/17/2019, patient presented to [facility] and was admitted for further evaluation [...] CONSULT TO CARDIOLOGY Reason for consult-chest pain ELEM-patient is a pleasant 48-year-old man with medical history significant for CAD status post PCI to LAD in 2012 for FL presentation-presented again in 2014 with in-stent restenosis-underwent [...] have been negative, EKG shows old anterolateral FL with mild ST-T changes, d-dimer is negative [...] 1998 CAD (coronary artery disease) CAD s/p [facility] with 1 stent in left main 07/2012, replaced 09/2014 Chest pain Circulation problem right leg COPD (chronic obstructive pulmonary disease) ([facility]) Fatigue GERD (gastroesophageal reflux disease) Headache HLD (hyperlipidemia) HTN (hypertension) Metabolic syndrome Mood disorder ([facility]) Obstructive sleep apnea Pneumomediastinum ([facility]) 01/2007 Rotator cuff tear, right 1997 s/p repair SLAP tear of shoulder 2011 left - s/p surgery to place [address] elevation myocardial infarction (STEMI) of anterolateral wall ([facility]) 05/09/12 Past Surgical History: Procedure Laterality Date [...] file Gets together: Not on file Attends pentecostalism service: Not on file Active member of [...] similar to his pain prior to the FL will plan for a left heart cath [...] Interventional Cardiology Clinic Consult Heart & Vascular [facility] 10/15/2019 Anita Rowland MD [address] [place] [id number] Patient: Fernando Helton Date of : 1970 [...] current medical regiment. Coronary artery disease involving [place] coronary artery of [place] heart without angina pectoris Patient has a [...] therapy. COPD (chronic obstructive pulmonary disease) ([facility]) Assessment & Plan Patient reports he has discontinued tobacco abuse. Coronary artery disease involving [place] coronary artery of [place] heart without angina pectoris Assessment & Plan [...] Final Result by Interface, Lab Results In [place] [facility] (10/16/2019 0822) Echocardiogram complete w contrast [...] History: Diagnosis Date Acute respiratory failure ([facility]) 09/2014 requring mechanical ventilation Anxiety Bilateral lower extremity edema R > L CAD (coronary artery disease) CAD s/p [facility] with 1 stent in left main 07/2012, replaced 09/2014 Cardiac arrest with ventricular fibrillation ([facility]) 09/25/2014 CHF (congestive heart failure), NYHA class I, chronic, diastolic ([facility]) Chronic sinusitis Claudication of right lower extremity ([facility]) Cluster headache COPD (chronic obstructive pulmonary disease) ([facility]) 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 Bev Tolentino Metabolic syndrome Mood disorder ([facility]) Nasal fracture Obstructive sleep apnea noncompliant with CPAP Orthostatic dizziness with intermittent syncope Pericarditis 02/25/07; 09/23/17 Pneumomediastinum ([facility]) 01/12/2007 secondary to severe coughing spell & ruptured alveoli Rotator cuff tear, right 1997 s/p repair SLAP tear of shoulder 2011 left - s/p surgery to place [address] elevation myocardial infarction (STEMI) of anterolateral wall ([facility]) 05/09/2012 anterolateral STEMI involving left anterior descending coronary artery ([facility]) 09/25/2014 anterior Superficial thrombophlebitis of right upper [...] Heart Cath; Surgeon: Carlo Mercedes MD; 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 The patient's home setup is a foot gatherer, family / caregiver support is a foot gatherer for return to prior level of function. The patient's compliance is a foot gatherer, awareness of own capacity and performance is a foot gatherer to return to prior level of function. [...] double vision, but none during OT eval. [id number] WNL. ADL/IADL Feeding: Independent Grooming : Independent [...] dizziness.. Prior Level of Function Level of [place]: Independent with ADLs and functional transfers, Independent with homemaking with ambulation Lives With: Spouse Receives Help From: Family ADL Assistance: Independent Homemaking Assistance: Independent Vocational: On disability Comments: Drives. Independent in community. Past Medical History: Diagnosis Date Acute respiratory failure ([facility]) 09/2014 requring mechanical ventilation Anxiety Bilateral lower extremity edema R > L CAD (coronary artery disease) CAD s/p [facility] with 1 stent in left main 07/2012, replaced 09/2014 Cardiac arrest with ventricular fibrillation ([facility]) 09/25/2014 CHF (congestive heart failure), NYHA class I, chronic, diastolic ([facility]) Chronic sinusitis Claudication of right lower extremity ([facility]) Cluster headache COPD (chronic obstructive pulmonary disease) ([facility]) 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 Bev Tolentino Metabolic syndrome Mood disorder ([facility]) Nasal fracture Obstructive sleep apnea noncompliant with CPAP Orthostatic dizziness with intermittent syncope Pericarditis 02/25/07; 09/23/17 Pneumomediastinum ([facility]) 01/12/2007 secondary to severe coughing spell & ruptured alveoli Rotator cuff tear, right 1997 s/p repair SLAP tear of shoulder 2011 left - s/p surgery to place [address] elevation myocardial infarction (STEMI) of anterolateral wall ([facility]) 05/09/2012 anterolateral STEMI involving left anterior descending coronary artery ([facility]) 09/25/2014 anterior Superficial thrombophlebitis of right upper [...] Heart Cath; Surgeon: Carlo Mercedes MD; 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 Past Medical History: Diagnosis Date Acute respiratory failure ([facility]) 09/2014 requring mechanical ventilation Anxiety Bilateral lower extremity edema R > L CAD (coronary artery disease) CAD s/p [facility] with 1 stent in left main 07/2012, replaced 09/2014 Cardiac arrest with ventricular fibrillation ([facility]) 09/25/2014 CHF (congestive heart failure), NYHA class I, chronic, diastolic ([facility]) Chronic sinusitis Claudication of right lower extremity ([facility]) Cluster headache COPD (chronic obstructive pulmonary disease) ([facility]) 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 Bev Tolentino Metabolic syndrome Mood disorder ([facility]) Nasal fracture Obstructive sleep apnea noncompliant with CPAP Orthostatic dizziness with intermittent syncope Pericarditis 02/25/07; 09/23/17 Pneumomediastinum ([facility]) 01/12/2007 secondary to severe coughing spell & ruptured alveoli Rotator cuff tear, right 1997 s/p repair SLAP tear of shoulder 2011 left - s/p surgery to place [address] elevation myocardial infarction (STEMI) of anterolateral wall ([facility]) 05/09/2012 anterolateral STEMI involving left anterior descending coronary artery ([facility]) 09/25/2014 anterior Superficial thrombophlebitis of right upper extremity 12/26/2006 Past Surgical History: Procedure Laterality Date APPENDECTOMY 1998 BONE MARROW BIOPSY W/ ASPIRATION Left 11/27/2016 L posterior iliac crest; Dr. 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 Time statement: A total of 70 minutes were spent on this encounter either in the patient's room or on the patient's hospital unit and over half of that time was spent on [id number] counseling and/or coordination of care. TANNER PALMA MSc, . [email or web address] Neurologist & Movement Disorder Specialist [facility] (Adj Asst: Professor, [facility] [employer] Dept of Neurology) [id number], [address] Fax: [phone] NEUROLOGY NOTE [facility] [address] [place] [address] Fax: [phone] Service date: 09/23/2019 Admit date: 09/22/2019 Fernando [...] review with Dr. Palma. Ginny Rushing, MSN, GINSENG FARMER [facility] Neurology Associated Order(s): IP [...] Discharge Readiness Barriers to Discharge: No barriers 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) Past Medical History: Diagnosis Date Acute respiratory failure ([facility]) 09/2014 requring mechanical ventilation Anxiety Bilateral lower extremity edema R > L CAD (coronary artery disease) CAD s/p [facility] with 1 stent in left main 07/2012, replaced 09/2014 Cardiac arrest with ventricular fibrillation ([facility]) 09/25/2014 CHF (congestive heart failure), NYHA class I, chronic, diastolic ([facility]) Chronic sinusitis Claudication of right lower extremity ([facility]) Cluster headache COPD (chronic obstructive pulmonary disease) ([facility]) 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 Bev Tolentino Metabolic syndrome Mood disorder ([facility]) Nasal fracture Obstructive sleep apnea noncompliant with CPAP Orthostatic dizziness with intermittent syncope Pericarditis 02/25/07; 09/23/17 Pneumomediastinum ([facility]) 01/12/2007 secondary to severe coughing spell & ruptured alveoli Rotator cuff tear, right 1998 s/p repair SLAP tear of shoulder 2011 left - s/p surgery to place [address] elevation myocardial infarction (STEMI) of anterolateral wall ([facility]) 05/09/2012 anterolateral STEMI involving left anterior descending coronary artery ([facility]) 09/25/2014 anterior Superficial thrombophlebitis of right upper [...] 12/25/2014 PCI with balloon angioplasty by Dr. 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 Associated Problem(s): Coronary artery disease involving [place] coronary artery of [place] heart without angina pectoris Patient has a [...] Completed Call placed to Dr. Martines about [place] line possibly not giving correct information based [...] OF SURGEON: Dr. Neo Bose. MD Tarun Nurse Private Duty: Kristin Walker PA-C ANESTHESIOLOGIST: Dr. Jef Martines TYPE OF ANESTHESIA: General PRE-OP DIAGNOSIS: Sclerotic heart disease of the [place] coronary arteries In-stent restenosis of the LAD. [...] y.o. year-old male who presented with acute FL in the anterior wall after in-stent restenosis [...] LAD via proximal and distal control. The [employer] stabilization device was utilized to immobilize the [...] complexity, Kristin CHOUDHURY, was utilized as my district administrative assistant.' I broke scrub and went to [...] were discussed and spouse was identified as parts sales counterperson. Use of Password was discussed [facility] visiting policies were discussed. Multidisciplinary field marketing team leader rounds were reviewed and family members/caregivers were [...] have been negative, EKG showed old anterolateral FL with mild ST-T changes with d-dimer negative [...] L CAD (coronary artery disease) CAD s/p [facility] with 1 stent in left main 07/2012, replaced 09/2014 Cardiac arrest with ventricular fibrillation ([facility]) 09/25/2014 CHF (congestive heart failure), NYHA class I, chronic, diastolic ([facility]) Chronic sinusitis Claudication ([facility]) Claudication of right lower extremity ([facility]) Cluster headache COPD (chronic obstructive pulmonary disease) ([facility]) 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 Bev Tolentino Metabolic syndrome Mood disorder ([facility]) Nasal fracture Obstructive sleep apnea noncompliant with CPAP Orthostatic dizziness with intermittent syncope Pericarditis 02/25/07; 09/23/17 Pneumomediastinum ([facility]) 01/12/2007 secondary to severe coughing spell & ruptured alveoli Rotator cuff tear, right 1998 s/p repair SLAP tear of shoulder 2011 left - s/p surgery to place [address] elevation myocardial infarction (STEMI) of anterolateral wall ([facility]) 05/09/2012 anterolateral STEMI involving left anterior descending coronary artery ([facility]) 09/25/2014 anterior Superficial thrombophlebitis of right upper [...] Estimated Needs: 1800-2200cal Method for Estimating Needs: [id number],adjbw Total Protein Estimated Needs: 86gms Method for [...] CT surgery for SPARKS to LAD bypass lab technician nurse here for patient, advised to give Effient and ASA along with other cardiac meds this morning, advised to stop heparin at this time, off unit with odd job laborer nurse Problem: Actual or potential alteration [...] and nitro paste. Consulted with Denisse Caruso ASSESSMENT SPECIALIST to ensure ordering correct heparin order set. [...] the surgery. I communicated with cardiothoracic Physician Reconsignment Clerk Jacob and he recommends on discharging patient outpatient follow-up. In the ED patient is awake alert his vitals are stable pulse ox continues to be 97% room air he is afebrile blood pressure 131/78. Discharged with encouragement to call cardiothoracic surgery tomorrow and was to return to the ED for any worsening symptom and he expressed understanding. documented in this encounter Seen by [place] [facility] post discharge and reviewed AVS. [...] therapy. Associated Problem(s): Coronary artery disease involving [place] coronary artery of [place] heart without angina pectoris Patient has a [...] otherwise. documented in this encounter Seen by [place] [facility] post discharge and reviewed AVS. [...] Fernando Helton Admit Date: [id number] MR #: [id number] : 1970 The H&P has been reviewed and the patient has been examined. I concur with the findings of the H&P. There are no significant changes. It is appropriate to proceed with the planned procedure. Carlo Mercedes MD 01/20/2019 8:24 AM Reason for consult-chest pain ELEM-patient is a pleasant 48-year-old man with medical history significant for CAD status post PCI to LAD in 2012 for FL presentation-presented again in 2014 with in-stent restenosis-underwent [...] have been negative, EKG shows old anterolateral FL with mild ST-T changes, d-dimer is negative [...] leg COPD (chronic obstructive pulmonary disease) ([facility]) Fatigue GERD (gastroesophageal reflux disease) Headache HLD (hyperlipidemia) HTN (hypertension) Metabolic syndrome Mood disorder ([facility]) Obstructive sleep apnea Pneumomediastinum ([facility]) 01/2007 Rotator cuff tear, right 1997 s/p repair SLAP tear of shoulder 2011 left - s/p surgery to place [address] elevation myocardial infarction (STEMI) of anterolateral wall ([facility]) 05/09/12 Past Surgical History: Procedure Laterality Date [...] file Gets together: Not on file Attends pentecostalism service: Not on file Active member of [...] puff 2 puff Inhalation Q6H PRN Meron Rpoer MD 2 puff at 01/17/19 1746 aspirin [...] similar to his pain prior to the FL will plan for a left heart cath on 01/20/2019 - Continue heparin as per ACS protocol with a target APTT of 60 to 80 seconds - Okay to use Nitropaste - Continue aspirin, Effient, statin - Continue Coreg, enalapril and Lasix Electronically Signed by: Carlo Mercedes M.D 01/18/19 8:19 AM [facility] Medicine Inpatient H&P 01/17/2019 Meron Roper MD [facility] Patient: Fernando Helton Date of : [...] 1998 CAD (coronary artery disease) CAD s/p [facility] with 1 stent in left main 07/2012, replaced 09/2014 Chest pain Circulation problem right leg COPD (chronic obstructive pulmonary disease) ([facility]) Fatigue GERD (gastroesophageal reflux disease) Headache HLD (hyperlipidemia) HTN (hypertension) Metabolic syndrome Mood disorder ([facility]) Obstructive sleep apnea Pneumomediastinum ([facility]) 01/2007 Rotator cuff tear, right 1997 s/p repair SLAP tear of shoulder 2011 left - s/p surgery to place [address] elevation myocardial infarction (STEMI) of anterolateral wall ([facility]) 05/09/12 Past Surgical History: Procedure Laterality Date [...] Medicine Inpatient H&P 10/16/2019 Nallely Goodwin CNP [facility] Patient: Fernando Helton Date of : 1970 (49 y.o.) PCP: Moises Patel MD ASSESSMENT/PLAN: Fernando Helton 49 y.o. male with history of HTN, HLD, CAD sp 1v CABG, COPD, DM Type II, ISAC non compliant CPAP, cardiac arrest VFib in 2014, chronic diastolic heart failure, GERD. Active Problems: Near syncope Coronary artery disease involving [place] coronary artery of [place] heart without angina pectoris COPD (chronic obstructive pulmonary disease) ([facility]) PLAN: Admit to med surg cardiac monitoring [...] History: Diagnosis Date Acute respiratory failure ([facility]) 09/2014 requring mechanical ventilation Anxiety Bilateral lower extremity edema R > L CAD (coronary artery disease) CAD s/p [facility] with 1 stent in left main 07/2012, replaced 09/2014 Cardiac arrest with ventricular fibrillation (HCC) 09/25/2014 CHF (congestive heart failure), NYHA class I, chronic, diastolic (HCC) Chronic sinusitis Claudication of right lower extremity (HCC) Cluster headache COPD (chronic obstructive pulmonary disease) ([facility]) 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 Bev Tolentino Metabolic syndrome Mood disorder ([facility]) Nasal fracture Obstructive sleep apnea noncompliant with CPAP Orthostatic dizziness with intermittent syncope Pericarditis 02/25/07; 09/23/17 Pneumomediastinum ([facility]) 01/12/2007 secondary to severe coughing spell & ruptured alveoli Rotator cuff tear, right 1997 s/p repair SLAP tear of shoulder 2011 left - s/p surgery to place [address] elevation myocardial infarction (STEMI) of anterolateral wall ([facility]) 05/09/2012 anterolateral STEMI involving left anterior descending coronary artery ([facility]) 09/25/2014 anterior Superficial thrombophlebitis of right upper extremity 12/26/2006 Past Surgical History: Procedure Laterality Date APPENDECTOMY 1998 BONE MARROW BIOPSY W/ ASPIRATION Left 11/27/2016 L posterior iliac crest; Dr. 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; Service: Cardiovascular IABP placement 05/09/2012 by [...] ms QTC Calculation (Bezet) 461 ms P [place] 61 degrees R [place] -4 degrees T [place] 80 degrees Alcohol, Medical Collection Time: 10/15/19 [...] intracranial CTA. 3. No enhancing intracranial process. [employer] - [employer] [facility] Workstation ID: [id number] Ct Head Or Brain [...] EDT Patient seen and managed independently by GINSENG FARMER. I did not participate in the care of this patient, but was available for immediate consultation if requested by the GINSENG FARMER. documented in this encounter [facility] Medicine Inpatient H&P 09/22/2019 Good Macias MD [facility] Patient: Fernando Helton Date of : 1970 (49 y.o.) PCP: Moises Patel MD Assessment Fernando Helton 49 y.o. male with history of hypertension dyslipidemia diabetes coronary artery disease status post CABG presenting with slurred speech altered mental status which has resolved at arrival to ED Principal Problem: TIA (transient ischemic attack) Active Problems: Essential hypertension Mixed hyperlipidemia Coronary artery disease involving [place] coronary artery of [place] heart without angina pectoris GERD (gastroesophageal reflux disease) PAD (peripheral artery disease) ([facility]) Plan: Admit for observation Continue on telemetry [...] History: Diagnosis Date Acute respiratory failure ([facility]) 09/2014 requring mechanical ventilation Anxiety Bilateral lower extremity edema R > L CAD (coronary artery disease) CAD s/p [facility] with 1 stent in left main 07/2012, replaced 09/2014 Cardiac arrest with ventricular fibrillation ([facility]) 09/25/2014 CHF (congestive heart failure), NYHA class I, chronic, diastolic ([facility]) Chronic sinusitis Claudication of right lower extremity ([facility]) Cluster headache COPD (chronic obstructive pulmonary disease) ([facility]) 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 Bev Tolentino Metabolic syndrome Mood disorder ([facility]) Nasal fracture Obstructive sleep apnea noncompliant with CPAP Orthostatic dizziness with intermittent syncope Pericarditis 02/25/07; 09/23/17 Pneumomediastinum (HCC) 01/12/2007 secondary to severe coughing spell & ruptured alveoli Rotator cuff tear, right 1997 s/p repair SLAP tear of shoulder 2011 left - s/p surgery to place [address] elevation myocardial infarction (STEMI) of anterolateral wall ([facility]) 05/09/2012 anterolateral STEMI involving left anterior descending coronary artery ([facility]) 09/25/2014 anterior Superficial thrombophlebitis of right upper [...] Heart Cath; Surgeon: Carlo Mercedes MD; Location: [facility]; Service: Cardiovascular IABP placement 05/09/2012 by [...] stat portable chest x-ray. SWAN LINE REMOVAL [place] catheter was removed at this time with patient lying flat. A single lumen infusion catheter was then sterilely placed right IJ cordis. Patient tolerated this very well. There were no immediate complications. documented in this encounter Care Teams (unrecognized sec tion and content) Cook Relief Relationship Specialty Start Date End Date Moises Patel MD [address] [place] [address] PCP - General Family Medicine 09/20/17 Maykel Weathers II, MD [address] [place] [address] Consulting Physician Internal Medicine 05/17/15 Maximiliano Chiang MD [address] [place] [address] Consulting Physician General Surgery 07/14/19 Rubi White, GINSENG FARMER [address] [facility] [place] [address] Nurse Practitioner Nurse Practitioner 07/14/19 Devendra Freitas III, DO [address] [place] [address] Consulting Physician Vascular Surgery 07/14/19 Cook Relief Relationship Specialty Start Date End Date Moises Patel MD PCP - General Family Medicine 03/17/13 Cook Relief Relationship Specialty Start Date End Date Mioses Patel MD [address] [place] [address] PCP - General Family Medicine 09/20/17 Maykel Weathers II, MD [address] [place] [address] Consulting Physician Internal Medicine 05/17/15 Maximiliano Chiang MD [address] [place] [address] Consulting Physician General Surgery 07/14/19 Rubi White, GINSENG FARMER [address] [facility] [place] [address] Nurse Practitioner Nurse Practitioner 07/14/19 Devendra Freitas III, DO [address] [facility] [place] [address] Consulting Physician Vascular Surgery 07/14/19 Cook Relief Relationship Specialty Start Date End Date Moises Patel MD [address] [place] [address] PCP - General Family Medicine 09/20/17 Maykel Weathers II, MD [address] [place] [address] Consulting Physician Internal Medicine 05/17/15 Maximiliano Chiang MD [address] [place] [address] Consulting Physician General Surgery 07/14/19 Rubi White, GINSENG FARMER [address] [place] [address] Nurse Practitioner Nurse Practitioner 07/14/19 Devendra Freitas III, DO [address] [place] [address] Consulting Physician Vascular Surgery 07/14/19 Cook Relief Relationship Specialty Start Date End Date Moises Patel MD PCP - General Family Medicine 03/17/13 Cook Relief Relationship Specialty Start Date End Date Moises Patel MD [address] [place] [address] PCP - General Family Medicine 09/20/17 Maykel Weathers II, MD [address] [place] [address] Consulting Physician Internal Medicine 05/17/15 Maximiliano Chiang MD [address] [place] [address] Consulting Physician General Surgery 07/14/19 Rubi White, GINSENG FARMER [address] [place] [address] Nurse Practitioner Nurse Practitioner 07/14/19 Devendra Freitas III, DO [address] [place] [address] Consulting Physician Vascular Surgery 07/14/19 Cook Relief Relationship Specialty Start Date End Date Moises Patel MD [address] [place] [address] PCP - General Family Medicine 09/20/17 Maykel Weathers II, MD [address] [place] [address] Consulting Physician Internal Medicine 05/17/15 Maximiliano Chiang MD [address] [place] [address] Consulting Physician General Surgery 07/14/19 Rubi White CNP [address] [place] [address] Nurse Practitioner Nurse Practitioner 07/14/19 Devendra Freitas III, DO [address] [place] [address] Consulting Physician Vascular Surgery 07/14/19 Cook Relief Relationship Specialty Start Date End Date Moises Patel MD [address] [place] [address] PCP - General Family Medicine 09/20/17 Maykel Weathers II, MD [address] [place] [address] Consulting Physician Internal Medicine 05/17/15 Maximiliano Chiang MD [address] [place] [address] Consulting Physician General Surgery 07/14/19 Rubi White GINSENG FARMER [address] [facility] [place] [address] Nurse Practitioner Nurse Practitioner 07/14/19 Devendra Freitas III, DO [address] [facility] [place] [address] Consulting Physician Vascular Surgery 07/14/19 Cook Relief Relationship Specialty Start Date End Date Moises Patel MD [address] [place] [address] PCP - General Family Medicine 09/20/17 Maykel Weathers II, MD [address] [place] [address] Consulting Physician Internal Medicine 05/17/15 Carlo Mercedes MD [address] [place] [address] Cardiology 07/14/19 07/12/20 Maximiliano Chiang MD [address] [facility] [address] [address] Consulting Physician General Surgery 07/14/19 Rubi White CNP [address] [facility] [place] [address] Nurse Practitioner Nurse Practitioner 07/14/19 Devendra Freitas III, DO [address] [place] [address] Consulting Physician Vascular Surgery 07/14/19 Cook Relief Relationship Specialty Start Date End Date Moises Patel MD [address] [place] [address] PCP - General Family Medicine 09/20/17 Maykel Weathers II, MD [address] [facility] [place] [address] Consulting Physician Internal Medicine 05/17/15 Carlo Mercedes MD [address] [place] [address] Cardiology 07/14/19 07/12/20 Maximiliano Chiang MD [address] [place] [address] Consulting Physician General Surgery 07/14/19 Rubi White, GINSENG FARMER [address] [facility] [place] [address] Nurse Practitioner Nurse Practitioner 07/14/19 Devendra Freitas III, DO [address] [facility] [place] [address] Consulting Physician Vascular Surgery 07/14/19 Cook Relief Relationship Specialty Start Date End Date Moises Patel MD [address] [place] [address] PCP - General Family Medicine 09/20/17 Maykel Weathers II, MD [address] [place] [address] Consulting Physician Internal Medicine 05/17/15 Carlo Mercedes MD [address] [place] [address] Cardiology 07/14/19 07/12/20 Maximiliano Chiang MD [address] [place] [address] Consulting Physician General Surgery 07/14/19 Rubi White, GINSENG FARMER [address] [facility] [place] [address] Nurse Practitioner Nurse Practitioner 07/14/19 Devendra Freitas III, DO [address] [place] [address] Consulting Physician Vascular Surgery 07/14/19 Cook Relief Relationship Specialty Start Date End Date Moises Patel MD [address] [place] [address] PCP - General Family Medicine 12/28/14 09/19/17 Moises Patel MD [address] [place] [address] PCP - General Family Medicine 09/20/17 Maykle Weathers II, MD [address] [facility] [place] [address] Consulting Physician Internal Medicine 05/17/15 Carlo Mercedes MD [address] [facility] [place] [address] Cardiology 07/14/19 07/12/20 Maximiliano Chiang MD [address] [address] Consulting Physician General Surgery 07/14/19 Rubi White CNP [address] [place] [address] Nurse Practitioner Nurse Practitioner 07/14/19 Devendra Freitas III, DO [address] [place] [address] Consulting Physician Vascular Surgery 07/14/19 Cook Relief Relationship Specialty Start Date End Date Moises Patel MD [address] [place] [address] PCP - General Family Medicine 12/28/14 09/19/17 Moises Patel MD [address] [place] [address] PCP - General Family Medicine 09/20/17 Maykel Weathers II, MD [address] [facility] [place] [address] Consulting Physician Internal Medicine 05/17/15 Carlo Mercedes MD [address] [facility] [place] [address] Cardiology 07/14/19 07/12/20 Maximiliano Chiang MD [address] [place] [address] Consulting Physician General Surgery 07/14/19 Rubi White CNP [address] [place] [address] Nurse Practitioner Nurse Practitioner 07/14/19 Devendra Freitas III, DO [address] [facility] [place] [address] Consulting Physician Vascular Surgery 07/14/19 Cook Relief Relationship Specialty Start Date End Date Moises Patel MD [address] [place] [address] PCP - General Family Medicine 12/28/14 09/19/17 Moises Patel MD [address] [place] [address] PCP - General Family Medicine 09/20/17 Maykel Weathers II, MD [address] [place] [address] Consulting Physician Internal Medicine 05/17/15 Carlo Mercedes MD [address] [place] [address] Cardiology 07/14/19 07/12/20 Maximiliano Chiang MD [address] [place] [address] Consulting Physician General Surgery 07/14/19 Ruib White, JIM [address] [facility] [place] [address] Nurse Practitioner Nurse Practitioner 07/14/19 Devendra Freitas III, DO [address] [facility] [place] [address] Consulting Physician Vascular Surgery 07/14/19 Cook Relief Relationship Specialty Start Date End Date Moises Patel MD [address] [place] [address] PCP - General Family Medicine 12/28/14 09/19/17 Moises Patel MD [address] [place] [address] PCP - General Family Medicine 09/20/17 Maykel Weathers II, MD [address] [place] [address] Consulting Physician Internal Medicine 05/17/15 Carlo Mercedes MD [address] [place] [address] Cardiology 07/14/19 07/12/20 Maximiliano Chiang MD [address] [place] [address] Consulting Physician General Surgery 07/14/19 Rubi White CNP [address] [place] [address] Nurse Practitioner Nurse Practitioner 07/14/19 Devendra Freitas III, DO [address] [place] [address] Consulting Physician Vascular Surgery 07/14/19 Cook Relief Relationship Specialty Start Date End Date Moises Patel MD [address] [place] [address] PCP - General Family Medicine 09/20/17 Maykel Weathers II, MD [address] [place] [address] Consulting Physician Internal Medicine 05/17/15 Maximiliano Chiang MD [address] [place] [address] Consulting Physician General Surgery 07/14/19 Rubi White CNP [address] [facility] [place] [address] Nurse Practitioner Nurse Practitioner 07/14/19 Devendra Freitas III, DO [address] [facility] [place] [address] Consulting Physician Vascular Surgery 07/14/19 Team Status: [...] BE BASED ON THE PRIMARY CLINICAL RECORDS. [facility]. provides no warranty or guarantee of the accuracy or completeness of information in this document.
[2023-03-10 11:35] LABS: INR <0.93
[2023-03-10] MEDS: KETOROLAC TROMETHAMINE 30 MG/ML VIAL IVP (14:29)
--- NOTE | 2023-03-10 14:48 | CT_ITS ---
The [address] [address] Patient Name: BRYNN WRIGHT MRN: [id number] date: 1970 Sex: M Assigned Patient Location: ER Current Patient Location: Accession/Order Number: [id number] Exam Date: 03/10/2023 15:15 Report Date: 03/10/2023 16:24 At the request of: ODALYS BAIRD Procedure: CT angio UE LT EXAM: CT angio UE LT TECHNIQUE: Radiographic CT images were obtained of the left upper extremity following intravenous contrast administration. Sagittal and coronal slab maximum intensity projection images are obtained. 3-D volume renderings were obtained of the left upper extremity. Dose reduction techniques were achieved by using automated exposure control and/or adjustment of mA and/or kV according to patient size and/or use of iterative reconstruction technique. HISTORY: abnormal Doppler, recommended by radiologist COMPARISON: Ultrasound 03/10/2023 FINDINGS: The left brachial artery is widely patent. The left ulnar and intraosseous arteries appear patent to the wrist. The left radial artery demonstrated intermittent opacification in the forearm. Left ulnar artery is visualized into the palmar arch with enhancement of the palmar digital arteries of the second and third digits to the metacarpal head level. Arteries of the hand are otherwise not well visualized due to poor opacification as well as image noise due to the patient's arm being scanned at their side. CT/CT angio UE LT IMPRESSION: 1. Only intermittent opacification of the left radial artery in the forearm. There is no opacification of the radial artery branch vessels of the hand. 2. Ulnar artery is visualized to be patent into the palm of the hand with proximal blood flow demonstrated of the second, third and fourth digits only to the metacarpal heads. 3. Evaluation of the hand vessels is otherwise limited due to poor opacification and image artifact. Conventional angiogram may be necessary if there is continued clinical concern. Electronically authenticated by: JUAN CARLOS CHILEL Date: 03/10/2023 16:24
[2023-03-10] MEDS: MORPHINE SULFATE 4 MG/ML VIAL IV (15:35)
[2023-03-10 15:57] VITALS: BP 123/87; PULSE 74; RESP 18; O2SAT 98
== END 2023-03-10 17:18 | disposition home or self-care (01) ==
PROVIDERS: Emergency Provider Emergency Medicine
DX: I77.1 Stricture of artery (principal); F17.210 Nicotine dependence, cigarettes, uncomplicated; I10 Essential (primary) hypertension; G47.00 Insomnia, unspecified; F41.9 Anxiety disorder, unspecified; G25.81 Restless legs syndrome; I25.10 Atherosclerotic heart disease of native coronary artery without angina pectoris; I25.2 Old myocardial infarction; Z95.1 Presence of aortocoronary bypass graft; Z90.49 Acquired absence of other specified parts of digestive tract; Z96.611 Presence of right artificial shoulder joint; Z96.612 Presence of left artificial shoulder joint; Z79.899 Other long term (current) drug therapy
CPT/HCPCS: 36415; 73130; 73206; 80048; 85025; 85610; 85730; 93931; 96374; 96375; 99285; J1885; J2270; Q9967

== ENCOUNTER 2023-03-17 12:10 | Emergency (ER) | payer SELFPAY ==
[2023-03-17 12:16] VITALS: BP 149/90; PULSE 101; RESP 20; TEMP 36.6; O2SAT 95; BMI 38.7
--- NOTE | 2023-03-17 12:24 | PC.NURSE ---
PT SEEN HERE LAST SUNDAY AND DIAGNOSED WITH ARTERIAL BLOCKAGE TO LEFT LOWER ARM PT IS TO F/U WITH VASCULAR SURGEON BUT DOESN'T HAVE AN APPT UNTIL 03/29. PT STATES HAS HAD INCREASED BLUENESS AND PAIN TO LEFT MIDDLE FINGER AND NEW PAIN TO LEFT INDEX AND LEFT RING FINGER. PHYSICIAN AWARE. PT DENIES CP OR SOB.
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
[2023-03-17] MEDS: MORPHINE SULFATE 4 MG/ML VIAL IV ×2 (12:38→14:46)
--- OUTSIDE RECORDS SUMMARY | 2023-03-17 12:47 | XMS_ITS | CCD ---
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 15-41 [facility] Comment on above: Performed By: #### A CBC, PT, LIVR, CHEM7F #### Testing performed at [address] [address] Bilirubin [Mass/Vol] 0.6 mg/dL Normal 0.2-1.2 [facility] Comment on above: Performed By: #### A CBC, PT, LIVR, CHEM7F #### Testing performed at [place] [id number] Bilirubin.direct [Mass/Vol] 0.1 mg/dL Normal 0.0-0.2 [facility] Comment on above: Performed By: #### A CBC, PT, LIVR, CHEM7F #### [place] [address] Protein [Mass/Vol] 7.1 g/dL Normal 6.3-8.2 [facility] Comment on above: Performed By: #### A CBC, PT, LIVR, CHEM7F #### [place] [address] NOVEL CORONAVIRUSon 20 21 NARRATIVE This test was perfor med using isothermal MEGHANN and has been approved as Emergency Use Authorization (EUA) for the qualitative detection [id number] nucleic acid. Normal [facility] Comment on above: Performed By: #### C OVID #### [place] [address] SARS-COV-2 NOT DETECTED Normal NOT DETECTED [facility] Comment on above: Result Comment: Nega [...] #### C OVID #### [place] [address] PROTIMEon 04-25-2020 INR Coag (PPP) [Relative time] 0.97 {INR} Normal 0.88-1.12 [facility] Comment on above: Result Comment: 2.0-3.0 THERAPEUTIC RANGE 2.5-3.5 MECHANICAL VALVE RANGE Performed By: #### A CBC, PT, LIVR, CHEM7F #### Testing performed at [address] [address] PT Coag (PPP) [Time] 12.7 s Normal 11.8-14.4 [facility] Comment on above: Performed By: #### A CBC, PT, LIVR, CHEM7F #### Testing performed at [address] [address] RAPID FLU Aon 04-25-2020 INFLUENZA A Negative Normal NEGATIVE [facility] Comment on above: Performed By: #### R FLUAB #### Testing performed at [address] [address] INFLUENZA B Negative Normal NEGATIVE [facility] Comment on above: Result Comment: TEST ING PERFORMED BY MEGHANN Performed By: #### R FLUAB #### Testing performed at [address] [address] TROPONIN I, HIGH SENSITIVITY on 04-25-2020 TROPONIN I, HIGH SENSITIVITY 7 pg/mL Normal 0-20 [facility] Comment on above: Result Comment: Indeterminant: >12 to 100 pg/mL female >20 to 100 pg/mL male Indicative of myocardial injury. Serial sampling is recommended, a change of greater than or equal to 20 pg/mL is indicative of acute coronary syndrome. Performed By: #### R FLUAB #### Testing performed at [address] [address] XR CHEST AP PORTABLEon 04-25 XR CHEST AP PORTABLE EXAM: XR CHEST AP PORTABLE HISTORY: sob COMPARISON: Portable chest from 01/08/2018. TECHNIQUE: Portable chest was done at 5:41 PM. FINDINGS: Sternal wires indicate prior surgery. Trachea, mediastinum, heart size, diaphragm and bony elements are intact. No infiltrate or nodule or effusion or pneumothorax is noted. IMPRESSION: Nonacute portable chest. Normal [facility] XR CHEST PA AND LATERALon XR CHEST PA AND LATERAL EXAM: XR CHEST P A AND LATERAL 12/31/2019 2:56 PM EST HISTORY: sob COMPARISON: 01/08/2018 TECHNIQUE: PA and lateral views FINDINGS: Lungs are clear. The cardiomediastinal configuration is within normal limits. No acute bony abnormalities. Median sternotomy wires are visualized. IMPRESSION: No acute cardiopulmonary abnormalities. Normal [facility] COVID-19, MOLECULARon 2019 SARS-COV-2 RNA (KELL) Not Detected Normal Not Detected [facility] Comment on above: Result Comment: This test [...] at the following links: For Healthcare Providers: https://www.fda.gov/media/394051/download For Patients: https://www.fda.gov/media/451330/download Performed By: #### L [id number] #### [facility] [address] [place] [address] Roby Santos M.D. [id number] CBC WITH AUTO DIFFERENTIALon 10-16-2019 Basophils (Bld) [#/Vol] 0.10 10*3/uL [facility] Basophils/100 WBC (Bld) 0.6 % [facility] Eosinophils (Bld) [#/Vol] 0.21 10*3/uL [facility] Eosinophils/100 WBC (Bld) 1.3 % [facility] Erythrocyte distribution width (RBC) [Entitic vol] 15.3 % High 11.6 - 14.8 % [facility] Hematocrit (Bld) [Volume fraction] 47.6 % 41 - 53 % [facility] Hemoglobin (Bld) [Mass/Vol] 15.2 g/dL 13.5 - 17.5 g/dL [facility] Immature granulocytes (Bld) [#/Vol] 0.11 10*3/uL [facility] Immature granulocytes/100 WBC (Bld) 0.70 % [facility] Comment on above: The IG parameter is the percentage of metamyelocytes, myelocytes and promyelocytes. An immature granulocyte count (IG) of 1% or more suggests the possibility of infection, an IG count of 3% is very likely related to an infection. Interpretation and review of laboratory results Abnormal [facility] Lymphocytes (Bld) [#/Vol] 5.08 10*3/uL High [facility] Lymphocytes/100 WBC (Bld) 32.5 % [facility] MCH (RBC) [Entitic mass] 27.4 pg 26 - 34 pg [facility] MCHC (RBC) [Mass/Vol] 31.9 g/dL 31 - 3 7 g/dL [facility] MCV (RBC) [Entitic vol] 85.9 fL 80 - 100 fL [facility] Monocytes (Bld) [#/Vol] 1.39 10*3/uL High [facility] Monocytes/100 WBC (Bld) 8.9 % [facility] Neutrophils (Bld) [#/Vol] 8.72 10*3/uL High [facility] Neutrophils/100 WBC (Bld) 56.0 % [facility] Comment on above: Peripheral smear rev iewed manually Nucleated RBC (Bld) [#/Vol] 0.00 10*3/uL [facility] Nucleated RBC/100 WBC (Bld) [Ratio] 0.0 % [facility] Platelet mean volume (Bld) [Entitic vol] 10.3 fL 9.4 - 12.4 fL [facility] Platelets (Bld) [#/Vol] 306 10*3/uL [facility] RBC (Bld) [#/Vol] 5.54 10*6/uL [facility] ealth WBC (Bld) [#/Vol] 15.61 10*3/uL [facility] Metabolic Pane sangeetha 10-16-2019 Albumin [Mass/Vol] 3.2 g/dL 3.2 - 5.2 g/dL [facility] ALP [Catalytic activity/Vol] 87 U/L 40 - 150 U/L [facility] ALT [Catalytic activity/Vol] 46 U/L 14 - 65 U/L [facility] Anion gap [Moles/Vol] 10 mmol/L 10 - 2 0 mmol/L [facility] AST [Catalytic activity/Vol] 16 U/L 0 - 45 U/L [facility] Bilirubin [Mass/Vol] 0.4 mg/dL 0 - 1.3 mg/dL [facility] Calcium [Mass/Vol] 8.7 mg/dL 8.4 - 10. 2 mg/dL [facility] Chloride [Moles/Vol] 108 mmol/L 98 - 10 8 mmol/L [facility] Creatinine [Mass/Vol] 1.09 mg/dL 0.50 - 1.30 [facility] GFR/1.73 sq M predicted among non-blacks MDRD (S/P/Bld) [Vol rate/Area] The eGFR should be used for monitoring renal function only and not for medication dosing. [facility] GFR/1.73 sq M.predicted CKD-EPI (S/P/Bld) [Vol rate/Area] 80 >=60 mL/min/1.7 3 m2 [facility] Glucose [Mass/Vol] 117 mg/dL High 65 - 99 mg/dL [facility] HCO3 [Moles/Vol] 26 mmol/L 21 - 32 mmol/L [facility] Interpretation and review of laboratory results Abnormal [facility] Potassium [Moles/Vol] 3.7 mmol/L 3.5 - 5.1 mmol/L [facility] Protein [Mass/Vol] 6.5 g/dL 6 - 8 g/dL [facility] Sodium [Moles/Vol] 140 mmol/L 135 - 145 mmol/L [facility] Urea nitrogen [Mass/Vol] 28 mg/dL High 8 - 25 mg/dL [facility] Urea nitrogen/Creatinine [Mass ratio] 25.7 mg/mg High [facility] ECG 12-LEADon 10-16-2019 Atrial Rate 76 BPM [facility] P [place] 74 degrees [facility] P-R Interval 174 ms [facility] Q-T Interval 424 ms [facility] QRS Duration 90 ms [facility] QTC Calculation (Bezet) 477 ms O [facility] R [place] 11 degrees [facility] T [place] 62 degrees [facility] Ventricular Rate 76 BPM [facility] Normal sinus rhythm Anteroseptal infarct , age undetermined Abnormal ECG Confirmed by DEMETRIO WARREN, EMMA ([id number]) on 10/16/2019 8:22:19 AM [facility] ECHOCARDIOGRAM 2D COMPLETEon 10-16-2019 Aortic valve area 3.54936 cm [facility] AV mean gradient 2.32406 mmHg [facility] th AV peak gradient 3.6017 mmHg [facility] EF 38.6259 % [facility] Interface, Rad In [facility] - 10/16/2019 11:49 AM EDT Patient Info Name: FERNANDO HELTON Age: 49 years : 1970 Gender: Male Ht: 168 cm Wt: 118 kg BSA: 2.40 m2 HR: 72 bpm BP: 136 / 94 mmHg Heart Rhythm: Sinus Rhythm Technical Quality: Fair Exam Date: 10/16/2019 9:53 AM Patient Status: Outpatient Can Dryer: Wally Longoria RCDS Exam Type: ECHOCARDIOGRAM COMPLETE W CONTRAST Study Info Indications - - Syncope Referring Physician: ERLINDA Clarke; [id number] BMI: 41.96 kg/m2 Summary 1. Left ventricular [...] mmHg MV VTI 27.22 cm MV [place] [place] 300.69 cm/s2 MV PHT 71 ms MV [...] ml/m2 16.00-34.00 RA Dimensions RA Systolic Major [place] Length (4C) 5.70 cm <=5.30 RA Area (4C) 15.87 cm2 <=18.00 RA Area (4C) Index 6.60 cm2/m2 RA ESV (4C MOD) 38.16 ml 18.00-32.00 RA ESV Index (4C MOD) 15.87 ml/m2 <=32.00 Report Signatures Finalized by Emma Bueno MD on 10/16/2019 11:48 AM [facility] Patient Info Name: Andrew HELTON Age: 49 years : 1970 Gender: Male Ht: 168 cm Wt: 118 kg BSA: 2.40 m2 HR: 72 bpm BP: 136 / 94 mmHg Heart Rhythm: Sinus Rhythm Technical Quality: Fair Exam Date: 10/16/2019 9:53 AM Patient Status: Outpatient Can Dryer: Wally Longoria RCDS Exam Type: ECHOCARDIOGRAM COMPLETE W CONTRAST Study Info Indications - - Syncope Referring Physician: ERLINDA Clarke; [id number] BMI: 41.96 kg/m2 Summary 1. Left ventricular [...] mmHg MV VTI 27.22 cm MV [employer] [place] 300.69 cm/s2 MV PHT 71 ms MV [...] ml/m2 16.00-34.00 RA Dimensions RA Systolic Major [place] Length (4C) 5.70 cm <=5.30 RA Area (4C) 15.87 cm2 <=18.00 RA Area (4C) Index 6.60 cm2/m2 RA ESV (4C MOD) 38.16 ml 18.00-32.00 RA ESV Index (4C MOD) 15.87 ml/m2 <=32.00 Report Signatures Finalized by Emma Bueno MD on 10/16/2019 11:48 AM [facility] EKGon 10-16-2019 Ordered by an unspec ified provider. [facility] MORPHOLOGYon 10-16-2019 RBC morphology finding Nom (Bld) Normal [facility] Comment on above: RBC Indices confirme d with manual peripheral smear review. Magnesiumon 10-16-2019 Interpretation and review of laboratory results Normal [facility] Magnesium [Mass/Vol] 2.1 mg/dL 1.6 - 2 .4 mg/dL [facility] POC Glucoseon 10-16-2019 Glucose [Mass/Vol] 118 mg/dL High 65 - 99 mg/dL [facility] Interpretation and review of laboratory results Abnormal [facility] TROPONINon 10-16-2019 Troponin I.cardiac [Mass/Vol] ng/mL <=45 ng/L [facility] Troponin I.cardiac [Mass/Vol] Normal [facility] URINALYSISon 10-16-2019 Bacteria Auto Ql (U) None Seen None Se en /hpf [facility] Bilirubin Ql (U) Negative Negative [facility] th Clarity Refractometry automated (U) Clear Clear [facility] Color (U) Yellow Colorless, Yellow [facility] Epithelial cells.squamous Auto (Urine sed) [#/Area] <1 [facility] Glucose Auto test strip (U) [Mass/Vol] 50 Abnormal Negative mg/dL [facility] Hemoglobin Auto test strip Ql (U) Negative Negative [facility] Interpretation and review of laboratory results Abnormal [facility] Ketones (U) [Mass/Vol] Negative Negat bryan mg/dL [facility] Leukocyte esterase Auto test strip Ql (U) Negative Negative [facility] Nitrite Auto test strip Ql (U) Negative Negative [facility] pH (U) 5.5 [pH] [facility] Protein (U) [Mass/Vol] Negative Negat bryan mg/dL [facility] RBC Auto (Urine sed) [#/Area] [facility] Specific gravity (U) [Rel density] 1.033 High [facility] Urobilinogen (U) [Mass/Vol] <2.0 <2.0 mg/dL [facility] WBC Auto (Urine sed) [#/Area] <1 [facility] Microscopic examinat ion is performed on all urinalysis samples and only positive findings are reported. The test for blood on the chemical analytic portion of urinalysis may also be positive due to hemoglobinuria and myoglobinuria and if red blood cells are present they are quantified by microscopic examination. [facility] Alcohol, Medicalon 0 Ethanol [Mass/Vol] mg/dL <10.00 mg/dL [facility] Comment on above: Alcohol cutoff: <10. 00 mg/dL = None Detected Interpretation and review of laboratory results Normal [facility] BMPon 10-15-2019 Anion gap [Moles/Vol] 10 mmol/L 10 - 2 0 mmol/L [facility] Calcium [Mass/Vol] 9.0 mg/dL 8.4 - 10. 2 mg/dL [facility] Chloride [Moles/Vol] 108 mmol/L 98 - 10 8 mmol/L [facility] Creatinine [Mass/Vol] 1.41 mg/dL High 0.50 - 1.30 [facility] GFR/1.73 sq M predicted among non-blacks MDRD (S/P/Bld) [Vol rate/Area] The eGFR should be used for monitoring renal function only and not for medication dosing. [facility] GFR/1.73 sq M.predicted CKD-EPI (S/P/Bld) [Vol rate/Area] 58 Low >=60 mL/min/1.7 3 m2 [facility] Glucose [Mass/Vol] 203 mg/dL High 65 - 99 mg/dL [facility] HCO3 [Moles/Vol] 23 mmol/L 21 - 32 mmol/L [facility] Interpretation and review of laboratory results Abnormal [facility] Potassium [Moles/Vol] 4.2 mmol/L 3.5 - 5.1 mmol/L [facility] Sodium [Moles/Vol] 137 mmol/L 135 - 145 mmol/L [facility] Urea nitrogen [Mass/Vol] 27 mg/dL High 8 - 25 mg/dL [facility] Urea nitrogen/Creatinine [Mass ratio] 19.1 mg/mg [facility] CBC WITH AUTO DIFFERENTIALon 10-15-2019 Basophils (Bld) [#/Vol] 0.05 10*3/uL [facility] Basophils/100 WBC (Bld) 0.3 % [facility] Eosinophils (Bld) [#/Vol] 0.01 10*3/uL [facility] Eosinophils/100 WBC (Bld) 0.1 % [facility] Erythrocyte distribution width (RBC) [Entitic vol] 15.3 % High 11.6 - 14.8 % [facility] Hematocrit (Bld) [Volume fraction] 45.2 % 41 - 53 % [facility] Hemoglobin (Bld) [Mass/Vol] 14.6 g/dL 13.5 - 17.5 g/dL [facility] [facility] Immature granulocytes (Bld) [#/Vol] 0.15 10*3/uL [facility] Immature granulocytes/100 WBC (Bld) 0.90 % [facility] Comment on above: The IG parameter is the percentage of metamyelocytes, myelocytes and promyelocytes. An immature granulocyte count (IG) of 1% or more suggests the possibility of infection, an IG count of 3% is very likely related to an infection. Lymphocytes (Bld) [#/Vol] 3.35 10*3/uL [facility] Lymphocytes/100 WBC (Bld) 19.9 % [facility] MCH (RBC) [Entitic mass] 27.2 pg 26 - 34 pg [facility] MCHC (RBC) [Mass/Vol] 32.3 g/dL 31 - 3 7 g/dL [facility] MCV (RBC) [Entitic vol] 84.2 fL 80 - 100 fL [facility] Monocytes (Bld) [#/Vol] 1.39 10*3/uL High [facility] Monocytes/100 WBC (Bld) 8.2 % [facility] Neutrophils (Bld) [#/Vol] 11.91 10*3/uL High [facility] Neutrophils/100 WBC (Bld) 70.6 % [facility] Nucleated RBC (Bld) [#/Vol] 0.00 10*3/uL [facility] Nucleated RBC/100 WBC (Bld) [Ratio] 0.0 % [facility] Platelet mean volume (Bld) [Entitic vol] 10.5 fL 9.4 - 12.4 fL [facility] Platelets (Bld) [#/Vol] 329 10*3/uL [facility] RBC (Bld) [#/Vol] 5.37 10*6/uL [facility] WBC (Bld) [#/Vol] 16.86 10*3/uL [facility] COVID-19, Molecularon 2019 Interpretation and review of laboratory results Normal [facility] SARS-CoV-2 Not Detected Not Detected [facility] Comment on above: This test was [...] at the following links: For Healthcare Providers: https://www.[employer].gov/media/475614/download For Patients: https://www.Digital [employer].gov/[employer]/993504/download CT HEAD OR BRAIN WITHOUT CON TRASTon [...] of acute intracranial abnormality. Workstation ID: [id number] [facility] EXAMINATION: CT HEAD OR BRAIN WITHOUT [...] TISSUES: Unremarkable. BONES: No acute osseous abnormality. [facility] No CT evidence of ac soni intracranial abnormality. Workstation ID: [id number] [facility] ECG 12-LEADon 10-15-2019 Atrial Rate 85 BPM [facility] P [place] 61 degrees [facility] P-R Interval 170 ms [facility] Q-T Interval 388 ms [facility] QRS Duration 90 ms [facility] QTC Calculation (Bezet) 461 ms [facility] R [place] -4 degrees [facility] T [place] 80 degrees [facility] Ventricular Rate 85 BPM [facility] th Normal sinus rhythm Low voltage QRS Inferior infarct , age undetermined Cannot rule out Anteroseptal infarct , age undetermined Abnormal ECG ECG Cart Interpretation see physician note for interpretation. Confirmed by Brandy Kc ([id number]) on 10/15/2019 10:58:08 PM [facility] Hepatic Function Panel (LFT) on 10-15-2019 Albumin [Mass/Vol] 3.5 g/dL 3.2 - 5.2 g/dL [facility] ALP [Catalytic activity/Vol] 106 U/L 40 - 150 U/L [facility] ALT [Catalytic activity/Vol] 52 U/L 14 - 65 U/L [facility] AST [Catalytic activity/Vol] 21 U/L 0 - 45 U/L [facility] Bilirubin [Mass/Vol] 0.4 mg/dL 0 - 1.3 mg/dL [facility] Bilirubin.conjugated [Mass/Vol] 0.1 mg/dL 0 - 0.4 mg/dL [facility] Protein [Mass/Vol] 7.1 g/dL 6 - 8 g/dL [facility] NT Pro BNPon 10-15-2019 Natriuretic peptide.B prohormone N-Terminal [Mass/Vol] 137 pg/mL 0 - 300 pg/mL [facility] Pride Study Cut-offs Rule In: < /= 50 Years >450 pg/mL 51 Years - 75 Years >900 pg/mL 76 Years - 99 Years >1800 pg/mL Rule Out: All patients <300 pg/mL [facility] Otheron 10-15-2019 Interpretation and review of laboratory results Normal [facility] Interpretation and review of laboratory results Abnormal [facility] POC Glucoseon 10-15-2019 Glucose [Mass/Vol] 189 mg/dL Abnormal 65 - 99 mg/dL [facility] Interpretation and review of laboratory results Abnormal [facility] Glucose [Mass/Vol] 189 mg/dL High 65 - 99 mg/dL [facility] PT/INRon 10-15-2019 INR Coag (PPP) [Relative time] 1.0 {INR} [facility] Interpretation and review of laboratory results Normal [facility] PT Coag (PPP) [Time] 12.7 s [facility] During the induction phase of oral anticoagulation, the INR may not reflect the anticoagulation status of the patient. Therapeutic ranges for INR's are: Most clinical situations: INR 2.0-3.0 Mechanical Prosthetic Valve: INR 2.5-3.5 Critical: INR >5.0 [facility] TROPONINon 10-15-2019 Troponin I.cardiac [Mass/Vol] Normal [facility] Troponin I.cardiac [Mass/Vol] ng/mL <=45 ng/L [facility] XR Chest 1 Viewon 10-15-2019 No acute cardiopulmo nary disease. Workstation ID: [id number] [facility] Interface, Rad In Luis Fernando ji Speechq - 10/15/2019 10:31 PM EDT EXAMINATION: XR CHEST PA/AP, 10/15/2019 HISTORY: diaphoresis COMPARISON: Chest, 09/22/2019. FINDINGS: Sternotomy wires are unchanged. Cardiac size, mediastinal contour and pulmonary vascularity appear within normal limits. The lungs are well expanded and appear clear. IMPRESSION: No acute cardiopulmonary disease. Workstation ID: [id number] [facility] EXAMINATION: XR CHES T PA/AP, 10/15/2019 HISTORY: diaphoresis COMPARISON: Chest, 09/22/2019. FINDINGS: Sternotomy wires are unchanged. Cardiac size, mediastinal contour and pulmonary vascularity appear within normal limits. The lungs are well expanded and appear clear. [facility] EKGon 09-23-2019 Ordered by an unspec ified provider. [facility] Lipid Panelon 09-23-2019 Cholesterol [Mass/Vol] 155 mg/dL 100 - 199 mg/dL [facility] Comment on above: National Cholesterol Education Program Guidelines: Cholesterol Desirable: <200 mg/dL Borderline High: 200-239 mg/dL High: greater than or equal to 240 mg/dL Cholesterol in HDL [Mass/Vol] 38 mg/dL Low 40 - 59 [facility] Comment on above: National Cholesterol Education Program Guidelines: HDL Cholesterol Low: <40 mg/dL Near Optimal: 40-59 mg/dL High: greater than or equal to 60 mg/dL Cholesterol in LDL [Mass/Vol] 79 mg/dL 10 - 130 mg/dL [facility] Comment on above: National Cholesterol Education Program Guidelines: LDL Cholesterol Optimal: <100 mg/dL Near Optimal/above Optimal: 100-129 mg/dL Borderline High: 130-159 mg/dL High: 160-189 mg/dL Very High: greater than or equal to 190 mg/dL Cholesterol non HDL [Mass/Vol] 117 mg/dL [facility] Comment on above: National Cholesterol Education Program Guidelines: NON HDL Cholesterol Desirable: <130 mg/dL Borderline High: 130-159 mg/dL High: 160-189 mg/dL Very High: > or = 190 mg/dL Cholesterol.total/Choles terol in HDL [Mass ratio] 4.1 {ratio} ratio [facility] Comment on above: Males Cholesterol/HD L Ratio: Average risk: 5.0 1/2 average risk: 3.4 2 x average risk: 9.6 Interpretation and review of laboratory results Abnormal [facility] Triglyceride [Mass/Vol] 192 mg/dL High 30 - 150 mg/dL [facility] Comment on above: National Cholesterol Education Program Guidelines: Triglyceride Normal: <150 mg/dL Borderline High: 150-199 mg/dL High: 200-499 mg/dL Very High: greater than or equal to 500 mg/dL MR Brain With And Without Co ntraston 09-23-2019 No acute intracrania l abnormality and no abnormal enhancement within the limitation of the study. Workstation ID: [id number] [facility] Interface, Rad In Luis Fernando Garciaq [...] limitation of the study. Workstation ID: [id number] [facility] EXAMINATION: MR XIOMARA Kincaid WITH AND [...] No tonsillar ectopia or mass is present.. [facility] POC Glucoseon 09-23-2019 Glucose [Mass/Vol] 102 mg/dL High 65 - 99 mg/dL [facility] Interpretation and review of laboratory results Abnormal [facility] Glucose [Mass/Vol] 110 mg/dL High 65 - 99 mg/dL [facility] Interpretation and review of laboratory results Abnormal [facility] Glucose [Mass/Vol] 123 mg/dL High 65 - 99 mg/dL [facility] Interpretation and review of laboratory results Abnormal [facility] Glucose [Mass/Vol] 113 mg/dL High 65 - 99 mg/dL [facility] Interpretation and review of laboratory results Abnormal [facility] CBC WITH AUTO DIFFERENTIALon 09-22-2019 Basophils (Bld) [#/Vol] 0.10 10*3/uL [facility] Basophils/100 WBC (Bld) 1.0 % [facility] Eosinophils (Bld) [#/Vol] 0.68 10*3/uL High [facility] Eosinophils/100 WBC (Bld) 6.8 % [facility] Erythrocyte distribution width (RBC) [Entitic vol] 15.9 % High 11.6 - 14.8 % [facility] Hematocrit (Bld) [Volume fraction] 44.9 % 41 - 53 % [facility] Hemoglobin (Bld) [Mass/Vol] 14.0 g/dL 13.5 - 17.5 g/dL [facility] Immature granulocytes (Bld) [#/Vol] 0.07 10*3/uL [facility] Immature granulocytes/100 WBC (Bld) 0.70 % [facility] Comment on above: The IG parameter is the percentage of metamyelocytes, myelocytes and promyelocytes. An immature granulocyte count (IG) of 1% or more suggests the possibility of infection, an IG count of 3% is very likely related to an infection. Interpretation and review of laboratory results Abnormal [facility] Lymphocytes (Bld) [#/Vol] 2.50 10*3/uL [facility] Lymphocytes/100 WBC (Bld) 25.2 % [facility] MCH (RBC) [Entitic mass] 26.6 pg 26 - 34 pg [facility] MCHC (RBC) [Mass/Vol] 31.2 g/dL 31 - 3 7 g/dL [facility] MCV (RBC) [Entitic vol] 85.2 fL 80 - 100 fL [facility] Monocytes (Bld) [#/Vol] 0.86 10*3/uL [facility] Monocytes/100 WBC (Bld) 8.7 % [facility] Neutrophils (Bld) [#/Vol] 5.72 10*3/uL [facility] Neutrophils/100 WBC (Bld) 57.6 % [facility] Nucleated RBC (Bld) [#/Vol] 0.00 10*3/uL [facility] Nucleated RBC/100 WBC (Bld) [Ratio] 0.0 % [facility] Platelet mean volume (Bld) [Entitic vol] 10.1 fL 9.4 - 12.4 fL [facility] Platelets (Bld) [#/Vol] 265 10*3/uL [facility] RBC (Bld) [#/Vol] 5.27 10*6/uL [facility] WBC (Bld) [#/Vol] 9.93 10*3/uL [facility] Molecular[facility] 2019 Interpretation and review of laboratory results Normal [facility] SARS-CoV-2 Not Detected Not Detected [facility] Comment on above: This test was [...] at the following links: For Healthcare Providers: https://www.[employer].gov/media/205344/download For Patients: https://www.[employer].gov/[employer]/938793/download CT ANGIOGRAM HEAD NECKon EXAMINATION: CT EDNA [...] patient motion. There is no airway compromise. [facility], Rad In Fu ji Speechq - 09/22/2019 11:27 AM EDT EXAMINATION: CT ANGIOGRAM HEAD NECK HISTORY: ORDERING SYSTEM PROVIDED HISTORY: Ataxia, stroke suspected, TECHNOLOGIST PROVIDED HISTORY: Illness/Other Reason for exam: Ataxia, stroke suspected Encounter Type: Initial Additional signs and symptoms: Ataxia, stroke suspected ORDERING SYSTEM PROVIDED DIAGNOSIS CODES: I63.9 Acute CVA (cerebrovascular accident) [facility] COMPARISON: CT brain 09/22/2019. TECHNIQUE: Initial noncontrast [...] intracranial CTA. 3. No enhancing intracranial process. [employer] Workstation ID: [id number] [facility] 1. No extracranial carotid or vertebral artery stenosis. 2. Unremarkable intracranial CTA. 3. No enhancing intracranial process. [employer] Workstation ID: [id number] [facility] CT HEAD WITHOUT CONTRAST (ST ROKE)on [...] performed for further evaluation. Workstation ID: [id number] [facility] 1. No acute intracra nial hemorrhage or large vessel ischemia by noncontrast CT. 2. Chronic paranasal sinus disease. If patient has a focal neurologic deficit or there is clinical suspicion for acute cerebrovascular accident, brain MRI may be performed for further evaluation. Workstation ID: [id number] [facility] EXAMINATION: CT HEAD WITHOUT CONTRAST (STROKE) [...] acute large vessel ischemia by noncontrast CT. [facility] Chem 7on 09-22-2019 Anion gap [Moles/Vol] 11 mmol/L 10 - 2 0 mmol/L [facility] Chloride [Moles/Vol] 108 mmol/L 98 - 10 8 mmol/L [facility] Creatinine [Mass/Vol] 1.16 mg/dL 0.50 - 1.30 [facility] GFR/1.73 sq M predicted among non-blacks MDRD (S/P/Bld) [Vol rate/Area] The eGFR should be used for monitoring renal function only and not for medication dosing. [facility] GFR/1.73 sq M.predicted CKD-EPI (S/P/Bld) [Vol rate/Area] 74 >=60 mL/min/1.7 3 m2 [facility] Glucose [Mass/Vol] 129 mg/dL High 65 - 99 mg/dL [facility] HCO3 [Moles/Vol] 25 mmol/L 21 - 32 mmol/L [facility] Interpretation and review of laboratory results Abnormal [facility] Potassium [Moles/Vol] 4.3 mmol/L 3.5 - 5.1 mmol/L [facility] Sodium [Moles/Vol] 140 mmol/L 135 - 145 mmol/L [facility] Urea nitrogen [Mass/Vol] 24 mg/dL 8 - 25 mg/dL [facility] Urea nitrogen/Creatinine [Mass ratio] 20.7 mg/mg High [facility] ECG 12-LEADon 09-22-2019 Atrial Rate 67 BPM [facility] P [place] 63 degrees [facility] P-R Interval 172 ms [facility] Q-T Interval 404 ms [facility] QRS Duration 86 ms [facility] QTC Calculation (Bezet) 426 ms [facility] R [place] 11 degrees [facility] T [place] 79 degrees [facility] Ventricular Rate 67 BPM [facility] Normal sinus rhythm Low voltage QRS Possible Anterolateral infarct , age undetermined Abnormal ECG ECG Cart Interpretation see physician note for interpretation. Confirmed by Brandy Kc ([id number]) on 09/22/2019 3:33:43 PM [facility] Hemoglobin A1con 09-22-2019 Average glucose Estimated from glycated hemoglobin mass conc (Bld) 137 mg/dL High 68 - 114 mg/dL [facility] HbA1c (Bld) [Mass fraction] 6.4 % High 4 - 5.6 % [facility] Interpretation and review of laboratory results Abnormal [facility] Normal: 4.0% - 5.6% Increased risk for diabetes: 5.7% - 6.4% Diabetes: >= 6.5% Pediatrics: No established reference range Estimated average glucose: 68-114 mg/dL [facility] Metabolic Panelon 09-22-2019 Glucose [Mass/Vol] 126 mg/dL High 65 - 99 mg/dL [facility] Otheron 09-22-2019 Extra Tube Hold for add-ons. [facility] Comment on above: Auto resulted. Interpretation and review of laboratory results Abnormal [facility] POC Glucoseon 09-22-2019 Glucose [Mass/Vol] 121 mg/dL High 65 - 99 mg/dL [facility] Interpretation and review of laboratory results Abnormal [facility] Glucose [Mass/Vol] 164 mg/dL High 65 - 99 mg/dL [facility] Interpretation and review of laboratory results Abnormal [facility] Glucose [Mass/Vol] 105 mg/dL High 65 - 99 mg/dL [facility] Interpretation and review of laboratory results Abnormal [facility] TROPONINon 09-22-2019 Troponin I.cardiac [Mass/Vol] ng/mL <=45 ng/L [facility] Troponin I.cardiac [Mass/Vol] Normal [facility] XR Chest 1 Viewon 09-22-2019 1. Prior median sternotomy with mild cardiomegaly. 2. No acute cardiopulmonary process otherwise suspected. [employer] Workstation ID: [id number] [facility] Interface, Rad In Fu ji Speechq [...] process otherwise suspected. [employer] Workstation ID: [id number] [facility] EXAMINATION: XR CHES T PA/AP 09/22/2019 [...] No acute osseous abnormality is otherwise identified. [facility] MONITORED CARDIAC REHAB SESS IONon 03-17-2019 ANGINA N [facility] ENDING HR 103 [facility] EXT - ADMIT TO CR DATE 01/31/2019 [facility] Max HR 118 [facility] Max Mets 4.4 [facility] MODE Treadmill [facility] RESTING HR 96 [facility] SESSION DATE 03/17/2019 [facility] SESSION [facility] SESSION LENGTH 0:45:52 [facility] SESSION LIST Session List: [id number] Scheduled:4 Attended:1 Compliance:25% [facility] SESSION NUMBER 1 [facility] SESSION THR 100-106 [facility] STATUS Cardiac Phase II [facility] Stress test only, exerciseon 03-13-2019 Angina Index 0 [facility] Baseline BP 124/68 mmHg [facility] Baseline HR 81 bpm [facility] [place] Treadmill Score 6.00 [facility] Estimated workload 7.0 METS [facility] alth Exercise duration (min) 6 min [facility] Exercise duration (sec) 0 sec [facility] Percent of predicted max HR 65 % [facility] Post peak BP 148/70 mmHg [facility] Post peak HR 113 bpm [facility] ST Elevation (mm) 0 mm [facility] Target HR 147 bpm [facility] Stress test results reviewed. Agree with below findings. [place] treadmill score not applicable. [facility] XR CHEST AP/PA AND LATon EXAMINATION: [...] pneumothorax. There is no acute osseous abnormality. [facility] Bibasilar atelectasi s with mild bronchial thickening. Central vascular prominence without edema. No consolidation, effusion, or pneumothorax. [facility]/ Workstation ID: [id number] [facility], Rad In ji Speech - 02/26/2019 2:44 [...] effusion, or pneumothorax. [facility] Workstation ID: [id number] [facility] Basic Metabolic Panelon 02-12 Anion gap [Moles/Vol] 9 mmol/L Low 10 - 2 0 mmol/L [facility] Calcium [Mass/Vol] 8.6 mg/dL 8.4 - 10. 2 mg/dL [facility] Chloride [Moles/Vol] 105 mmol/L 98 - 10 8 mmol/L [facility] Creatinine [Mass/Vol] 1.10 mg/dL 0.5 - 1.3 mg/dL [facility] GFR/1.73 sq M predicted among non-blacks MDRD (S/P/Bld) [Vol rate/Area] The eGFR should be used for monitoring renal function only and not for medication dosing. [facility] GFR/1.73 sq M.predicted CKD-EPI (S/P/Bld) [Vol rate/Area] 80 >=60 mL/min/1.7 3 m2 [facility] Glucose [Mass/Vol] 104 mg/dL High 65 - 99 mg/dL [facility] HCO3 [Moles/Vol] 28 mmol/L 21 - 32 mmol/L [facility] Interpretation and review of laboratory results Abnormal [facility] Potassium [Moles/Vol] 3.7 mmol/L 3.5 - 5.1 mmol/L [facility] Sodium [Moles/Vol] 138 mmol/L 135 - 145 mmol/L [facility] Urea nitrogen [Mass/Vol] 20 mg/dL 8 - 25 mg/dL [facility] Urea nitrogen/Creatinine [Mass ratio] 18.2 mg/mg [facility] CBC WITH AUTO DIFFERENTIALon 02-25-2019 Basophils (Bld) [#/Vol] 0.14 10*3/uL [facility] Basophils/100 WBC (Bld) 0.9 % [facility] Eosinophils (Bld) [#/Vol] 2.35 10*3/uL High [facility] Eosinophils/100 WBC (Bld) 15.2 % [facility] Erythrocyte distribution width (RBC) [Entitic vol] 14.8 % 11.6 - 14.8 % [facility] Hematocrit (Bld) [Volume fraction] 39.9 % Low 41 - 53 % [facility] Hemoglobin (Bld) [Mass/Vol] 13.0 g/dL Low 13.5 - 17.5 g/dL [facility] Immature granulocytes (Bld) [#/Vol] 0.14 10*3/uL [facility] Immature granulocytes/100 WBC (Bld) 0.90 % [facility] Comment on above: The IG parameter is the percentage of metamyelocytes, myelocytes, and promyelocytes. Interpretation and review of laboratory results Abnormal [facility] Lymphocytes (Bld) [#/Vol] 3.46 10*3/uL [facility] Lymphocytes/100 WBC (Bld) 22.4 % [facility] MCH (RBC) [Entitic mass] 26.5 pg 26 - 34 pg [facility] MCHC (RBC) [Mass/Vol] 32.6 g/dL 31 - 3 7 g/dL [facility] MCV (RBC) [Entitic vol] 81.4 fL 80 - 100 fL [facility] Monocytes (Bld) [#/Vol] 1.39 10*3/uL [facility] Monocytes/100 WBC (Bld) 9.0 % [facility] Neutrophils (Bld) [#/Vol] 7.99 10*3/uL [facility] Neutrophils/100 WBC (Bld) 51.6 % [facility] Nucleated RBC (Bld) [#/Vol] 0.00 10*3/uL [facility] Nucleated RBC/100 WBC (Bld) [Ratio] 0.0 % [facility] Platelet mean volume (Bld) [Entitic vol] 9.3 fL 9 - 15.5 fL [facility] Platelets (Bld) [#/Vol] 406 10*3/uL [facility] RBC (Bld) [#/Vol] 4.90 10*6/uL [facility] ealth WBC (Bld) [#/Vol] 15.47 10*3/uL [facility] CT PULMONARY ARTERIESon 02-12 CT ANGIOGRAPHY CHEST WITH INTRAVENOUS CONTRAST ([id number]) CLINICAL HISTORY: ORDERING SYSTEM PROVIDED Dyspnea. S/P [...] FINDINGS: Postsurgical changes in the anterior midline. [facility] Interface, Rad In Fu ji Speechq - 02/25/2019 10:[address] ANGIOGRAPHY CHEST WITH INTRAVENOUS CONTRAST ([id number]) CLINICAL HISTORY: ORDERING SYSTEM PROVIDED Dyspnea. S/P [...] LEFT lung base; however. Workstation ID: [id number] [facility] - NO evidence of pulmonary embolus [...] LEFT lung base; however. Workstation ID: [id number] [facility] ECG 12-LEADon 02-25-2019 Atrial Rate 83 BPM [facility] P [place] 55 degrees [facility] P-R Interval 164 ms [facility] Q-T Interval 360 ms [facility] QRS Duration 88 ms [facility] QTC Calculation (Bezet) 423 ms [facility] R [place] 24 degrees [facility] T [place] 98 degrees [facility] Ventricular Rate 83 BPM [facility] Normal sinus rhythm Possible Left atrial enlargement Anteroseptal infarct , age undetermined T wave abnormality, consider lateral ischemia Abnormal ECG ECG Cart Interpretation see physician note for interpretation. Confirmed by Brandy Kc ([id number]) on 02/25/2019 10:46:50 PM [facility] NT Pro BNPon 02-25-2019 Interpretation and review of laboratory results Normal [facility] Natriuretic peptide.B prohormone N-Terminal [Mass/Vol] 227 pg/mL 0 - 300 pg/mL [facility] Pride Study Cut-offs Rule In: < /= 50 Years >450 pg/mL 51 Years - 75 Years >900 pg/mL 76 Years - 99 Years >1800 pg/mL Rule Out: All patients <300 pg/mL [facility] Otheron 02-25-2019 Extra Tube Hold for add-ons. [facility] Comment on above: Auto resulted. PT/INR (if on Coumadin)on INR Coag (PPP) [Relative time] 1.0 {INR} [facility] Interpretation and review of laboratory results Normal [facility] PT Coag (PPP) [Time] 12.5 s [facility] During the induction phase of oral anticoagulation, the INR may not reflect the anticoagulation status of the patient. Therapeutic ranges for INR's are: Most clinical situations: INR 2.0-3.0 Mechanical Prosthetic Valve: INR 2.5-3.5 Critical: INR >5.0 [facility] TROPONINon 02-25-2019 Troponin I.cardiac [Mass/Vol] Normal [facility] Troponin I.cardiac [Mass/Vol] ng/mL <=45 ng/L [facility] XR CHEST AP/PA AND LATon Mild improved aerati on of the left lung base, compared to 02/13/2019. Small residual left basilar pleural effusion. Recent CABG with stable mediastinal contours. ST/IP Street Workstation ID: [id number] [facility] EXAMINATION: XR CHES T AP/PA AND [...] sternotomy and CABG. Mediastinal contours are stable. [facility] Interface, Rad In Fu ji Speechq [...] stable mediastinal contours. ST/trn Workstation ID: [id number] [facility] XR CHEST AP/PA AND LATon No significant inter tatiana change compared to 02/06/2019. Small bibasilar pleural effusions with left basilar atelectasis. Recent CABG with stable mediastinal contours. ST/trw Workstation ID: [id number] [facility] EXAMINATION: XR CHES T AP/PA AND [...] median sternotomy and CABG. Stable mediastinal contours. [facility] Interface, Rad In Fu ji Speechq [...] stable mediastinal contours. ST/trw Workstation ID: [id number] [facility] XR CHEST AP/PA AND LATon Slight fluid and atelectasis suggested in the left lung base showing improvement from the prior study. Workstation ID: [id number] [facility] EXAMINATION: XR CHES T AP/PA AND [...] base. Lung markings appear to be unremarkable. [facility], Rad In Fu ji Speechq - 02/06/2019 [...] from the prior study. Workstation ID: [id number] [facility] Basic Metabolic Panelon 01-13 Anion gap [Moles/Vol] 9 mmol/L Low 10 - 2 0 mmol/L [facility] Calcium [Mass/Vol] 8.6 mg/dL 8.4 - 10. 2 mg/dL [facility] Chloride [Moles/Vol] 106 mmol/L 98 - 10 8 mmol/L [facility] Creatinine [Mass/Vol] 1.06 mg/dL 0.5 - 1.3 mg/dL [facility] GFR/1.73 sq M predicted among non-blacks MDRD (S/P/Bld) [Vol rate/Area] The eGFR should be used for monitoring renal function only and not for medication dosing. [facility] GFR/1.73 sq M.predicted CKD-EPI (S/P/Bld) [Vol rate/Area] 83 >=60 mL/min/1.7 3 m2 [facility] Glucose [Mass/Vol] 106 mg/dL High 65 - 99 mg/dL [facility] HCO3 [Moles/Vol] 27 mmol/L 21 - 32 mmol/L [facility] Interpretation and review of laboratory results Abnormal [facility] Potassium [Moles/Vol] 4.0 mmol/L 3.5 - 5.1 mmol/L [facility] Sodium [Moles/Vol] 138 mmol/L 135 - 145 mmol/L [facility] Urea nitrogen [Mass/Vol] 27 mg/dL High 8 - 25 mg/dL [facility] Urea nitrogen/Creatinine [Mass ratio] 25.5 mg/mg High [facility] CBCon 02-04-2019 Erythrocyte distribution width (RBC) [Entitic vol] 14.3 % 11.6 - 14.8 % [facility] Hematocrit (Bld) [Volume fraction] 35.4 % Low 41 - 53 % [facility] Hemoglobin (Bld) [Mass/Vol] 11.5 g/dL Low 13.5 - 17.5 g/dL [facility] Interpretation and review of laboratory results Abnormal [facility] MCH (RBC) [Entitic mass] 27.8 pg 26 - 34 pg [facility] MCHC (RBC) [Mass/Vol] 32.5 g/dL 31 - 3 7 g/dL [facility] MCV (RBC) [Entitic vol] 85.5 fL 80 - 100 fL [facility] Nucleated RBC (Bld) [#/Vol] 0.00 10*3/uL [facility] Nucleated RBC/100 WBC (Bld) [Ratio] 0.0 % [facility] Platelet mean volume (Bld) [Entitic vol] 8.6 fL Low 9 - 15.5 fL [facility] Platelets (Bld) [#/Vol] 514 10*3/uL High [facility] RBC (Bld) [#/Vol] 4.14 10*6/uL Low [facility] WBC (Bld) [#/Vol] 12.92 10*3/uL High [facility] POC Glucoseon 02-04-2019 Glucose [Mass/Vol] 107 mg/dL High 65 - 99 mg/dL [facility] Interpretation and review of laboratory results Abnormal [facility] XR Chest 1 Viewon 02-04-2019 Improving congestive pattern and lung volumes with persistent consolidation and small effusion in the left base. Workstation ID: [id number] [facility] EXAMINATION: XR CHES T PA/AP HISTORY: post-op COMPARISON: Chest radiograph, yesterday at 11:49 a.m. FINDINGS: Cardiomediastinal silhouette is normal. Improved lung volumes and diminishing vascular congestion. Persistent atelectasis and small effusion at the left base. No large right pleural effusion. No acute osseous abnormality. Prior median sternotomy. [facility] Sharda, Keith In Fu ji Speechq [...] in the left base. Workstation ID: [id number] [facility] Basic Metabolic Panelon 01-13 Anion gap [Moles/Vol] 11 mmol/L 10 - 2 0 mmol/L [facility] Calcium [Mass/Vol] 9.0 mg/dL 8.4 - 10. 2 mg/dL [facility] Chloride [Moles/Vol] 104 mmol/L 98 - 10 8 mmol/L [facility] Creatinine [Mass/Vol] 1.03 mg/dL 0.5 - 1.3 mg/dL [facility] GFR/1.73 sq M predicted among non-blacks MDRD (S/P/Bld) [Vol rate/Area] The eGFR should be used for monitoring renal function only and not for medication dosing. [facility] GFR/1.73 sq M.predicted CKD-EPI (S/P/Bld) [Vol rate/Area] 86 >=60 mL/min/1.7 3 m2 [facility] Glucose [Mass/Vol] 109 mg/dL High 65 - 99 mg/dL [facility] HCO3 [Moles/Vol] 26 mmol/L 21 - 32 mmol/L [facility] Interpretation and review of laboratory results Abnormal [facility] Potassium [Moles/Vol] 4.1 mmol/L 3.5 - 5.1 mmol/L [facility] Sodium [Moles/Vol] 137 mmol/L 135 - 145 mmol/L [facility] Urea nitrogen [Mass/Vol] 26 mg/dL High 8 - 25 mg/dL [facility] Urea nitrogen/Creatinine [Mass ratio] 25.2 mg/mg High [facility] CBCon 02-03-2019 Erythrocyte distribution width (RBC) [Entitic vol] 14.3 % 11.6 - 14.8 % [facility] Hematocrit (Bld) [Volume fraction] 36.8 % Low 41 - 53 % [facility] Hemoglobin (Bld) [Mass/Vol] 12.1 g/dL Low 13.5 - 17.5 g/dL [facility] Interpretation and review of laboratory results Abnormal [facility] MCH (RBC) [Entitic mass] 27.9 pg 26 - 34 pg [facility] MCHC (RBC) [Mass/Vol] 32.9 g/dL 31 - 3 7 g/dL [facility] MCV (RBC) [Entitic vol] 84.8 fL 80 - 100 fL [facility] Nucleated RBC (Bld) [#/Vol] 0.00 10*3/uL [facility] Nucleated RBC/100 WBC (Bld) [Ratio] 0.0 % [facility] Platelet mean volume (Bld) [Entitic vol] 8.6 fL Low 9 - 15.5 fL [facility] Platelets (Bld) [#/Vol] 525 10*3/uL High [facility] RBC (Bld) [#/Vol] 4.34 10*6/uL Low [facility] WBC (Bld) [#/Vol] 14.25 10*3/uL [facility] POC Glucoseon 02-03-2019 Glucose [Mass/Vol] 117 mg/dL High 65 - 99 mg/dL [facility] Interpretation and review of laboratory results Abnormal [facility] Glucose [Mass/Vol] 111 mg/dL High 65 - 99 mg/dL [facility] Interpretation and review of laboratory results Abnormal [facility] VR Thoracentesis Lefton -2 1. Small left pleura l effusion 2. Successful ultrasound-guided left thoracentesis. Approximately 250 mL of blood-tinged fluid was removed from the left pleural space. A sample of fluid was placed in the custody of the patient's nurse for potential laboratory analysis to be ordered by the primary service. Workstation ID: [id number] [facility] EXAMINATION: ULTRASOUND-GUIDED LEFT THORACENTESIS HISTORY: Recent coronary artery bypass grafting. Left pleural effusion. FINANCIAL SERVICES CONSULTANT(S): Gilmer Zelaya MD COMPARISON: Chest radiograph dated [...] 1% lidocaine. Under ultrasound guidance, a 5 [employer] slip catheter and introducer needle were advanced [...] and the patient tolerated the procedure well. [facility] Interface, Rad In Fu ji Speechq - 02/03/2019 10:12 PM EST EXAMINATION: ULTRASOUND-GUIDED LEFT THORACENTESIS HISTORY: Recent coronary artery bypass grafting. Left pleural effusion. FINANCIAL SERVICES CONSULTANT(S): Gilmer Zelaya MD COMPARISON: Chest radiograph dated [...] 1% lidocaine. Under ultrasound guidance, a 5 [place] [employer] slip catheter and introducer needle were advanced [...] by the primary service. Workstation ID: [id number] [facility] XR Chest 1 Viewon 02-03-2019 No pneumothorax stat us post left thoracentesis. RPS/trw Workstation ID: [id number] [facility] EXAMINATION: XR CHES T PA/AP 02/03/2019 [...] small left pleural effusion and strandy atelectasis. [facility] Interface, Rad In Fu ji Speechq [...] post left thoracentesis. RPS/trw Workstation ID: [id number] [facility] Interface, Rad In Fu ji Speechq [...] 3. Mild cardiomegaly. RSR/hb Workstation ID: [id number] [facility] EXAMINATION: XR CHES T PA/AP 02/03/2019 [...] is similar. The right lung is clear. [facility] 1. Low lung volumes. 2. Left basal effusion with atelectasis and/or infiltrate similar. 3. Mild cardiomegaly. RSR/hb Workstation ID: [id number] [facility] CBCon 02-02-2019 Erythrocyte distribution width (RBC) [Entitic vol] 14.4 % 11.6 - 14.8 % [facility] Hematocrit (Bld) [Volume fraction] 34.8 % Low 41 - 53 % [facility] Hemoglobin (Bld) [Mass/Vol] 11.4 g/dL Low 13.5 - 17.5 g/dL [facility] Interpretation and review of laboratory results Abnormal [facility] MCH (RBC) [Entitic mass] 27.9 pg 26 - 34 pg [facility] MCHC (RBC) [Mass/Vol] 32.8 g/dL 31 - 3 7 g/dL [facility] MCV (RBC) [Entitic vol] 85.3 fL 80 - 100 fL [facility] Nucleated RBC (Bld) [#/Vol] 0.02 10*3/uL High [facility] Nucleated RBC/100 WBC (Bld) [Ratio] 0.1 % [facility] Platelet mean volume (Bld) [Entitic vol] 8.9 fL Low 9 - 15.5 fL [facility] Platelets (Bld) [#/Vol] 555 10*3/uL High [facility] RBC (Bld) [#/Vol] 4.08 10*6/uL [facility] ealth WBC (Bld) [#/Vol] 14.43 10*3/uL [facility] CT PULMONARY ARTERIESon 12-2 1. Xqcp-kz-epbjlaqs effusion with mild atelectasis in the left lung base. Remaining lungs show hyperaeration with mild chronic changes. 2. No evidence for acute mediastinal process or pulmonary embolism, it should be noted that there was limited opacification of the pulmonary arterial tree. 3. No evidence for lymphadenopathy. 4. Chronic and postsurgical changes noted. Workstation ID: [id number] [facility] EXAMINATION: CT PULM ONARY ARTERIES HISTORY: [...] good aeration. There is mild atelectasis and yadf-vp-wjvpynpj effusion in the left lung base. Slight chronic changes are noted off the hilar and infrahilar regions. No suspicious nodule is noted. Bone density is unremarkable. No bony lesions are noted throughout. No advanced degenerative changes are noted diffusely. No obvious bony lesions are noted. The subcutaneous tissues are unremarkable. [facility], Rad In Fu ji Speechq - 02/02/2019 [...] good aeration. There is mild atelectasis and meov-mt-cpkdaiby effusion in the left lung base. Slight chronic changes are noted off the hilar and infrahilar regions. No suspicious nodule is noted. Bone density is unremarkable. No bony lesions are noted throughout. No advanced degenerative changes are noted diffusely. No obvious bony lesions are noted. The subcutaneous tissues are unremarkable. IMPRESSION: 1. Moyr-ut-xhrfvbuw effusion with mild atelectasis in the left lung base. Remaining lungs show hyperaeration with mild chronic changes. 2. No evidence for acute mediastinal process or pulmonary embolism, it should be noted that there was limited opacification of the pulmonary arterial tree. 3. No evidence for lymphadenopathy. 4. Chronic and postsurgical changes noted. Workstation ID: [id number] [facility] POC ARTERIAL BLOOD GAS PANEL -AKIBrennan Srini Wayne 02-02-2019 Alveolar-arterial oxygen Partial pressure difference 28.2 mm Hg [facility] Base excess Calc (Bld) [Moles/Vol] 3.6 mmol/L High [facility] Breath rate setting Ventilator synchronized intermittent mandatory [address] [facility] CO2 (Bld) [Partial pressure] 38.6 mm[Hg] [facility] HCO3 (Bld) [Moles/Vol] 27.6 mmol/L High 22 - 26 mmol/L [facility] Hematocrit (BldA) [Volume fraction] 36.8 % Low 41 - 53 % [facility] Hemoglobin (Bld) [Mass/Vol] 12.0 g/dL Low 13.5 - 18 g/dL [facility] Inhaled oxygen concentration 21 % [facility] Interpretation and review of laboratory results Abnormal [facility] Oxygen (Bld) [Partial pressure] 72 mm[Hg] Low [facility] PEEP Respiratory system 0 [facility] pH (Bld) 7.46 [pH] High [facility] SaO2% (BldA) [Mass fraction] 95.1 % 92 - 99 % [facility] Specimen source Nom (Unsp spec) Radial, left [facility] Tidal volume setting Ventilator 0 [facility] POC Glucoseon 02-02-2019 Glucose [Mass/Vol] 93 mg/dL 65 - 99 mg/dL [facility] Interpretation and review of laboratory results Normal [facility] XR CHEST AP/PA AND LATon 1. Interval developm ent of left basilar consolidation with left pleural effusion. 2. Trace right pleural effusion. [employer] Workstation ID: [id number] [facility] EXAMINATION: TWO-VIE W CHEST HISTORY: ORDERING [...] normal. No acute osseous lesions are seen. [facility] Interface, Rad In Fu ji Speechq [...] pleural effusion. 2. Trace right pleural effusion. [employer] Workstation ID: [id number] [facility] XR CHEST AP/PA AND LATon Pulmonary venous congestion with small pleural effusions. Recent CABG with stable mediastinal contours. ST/ Workstation ID: [id number] [facility] EXAMINATION: XR CHES T AP/PA AND [...] median sternotomy and CABG. Stable mediastinal contours. [facility] Interface, Rad In Luis [place] ji [...] stable mediastinal contours. / Workstation ID: [id number] [facility] Basic Metabolic Panelon 01-12 Anion gap [Moles/Vol] 11 mmol/L 10 - 2 0 mmol/L [facility] Calcium [Mass/Vol] 8.6 mg/dL 8.4 - 10. 2 mg/dL [facility] Chloride [Moles/Vol] 105 mmol/L 98 - 10 8 mmol/L [facility] Creatinine [Mass/Vol] 1.08 mg/dL 0.5 - 1.3 mg/dL [facility] GFR/1.73 sq M.predicted CKD-EPI (S/P/Bld) [Vol rate/Area] 81 >=60 mL/min/1.7 3 m2 [facility] Glucose [Mass/Vol] 101 mg/dL High 65 - 99 mg/dL [facility] HCO3 [Moles/Vol] 26 mmol/L 21 - 32 mmol/L [facility] [facility] Interpretation and review of laboratory results Abnormal [facility] Potassium [Moles/Vol] 4.2 mmol/L 3.5 - 5.1 mmol/L [facility] Sodium [Moles/Vol] 138 mmol/L 135 - 145 mmol/L [facility] Urea nitrogen [Mass/Vol] 29 mg/dL High 8 - 25 mg/dL [facility] Urea nitrogen/Creatinine [Mass ratio] 26.9 mg/mg High [facility] The eGFR should be u sed for monitoring renal function only and not for medication dosing. [facility] CBCon 01-29-2019 Erythrocyte distribution width (RBC) [Entitic vol] 14.2 % 11.6 - 14.8 % [facility] Hematocrit (Bld) [Volume fraction] 33.7 % Low 41 - 53 % [facility] Hemoglobin (Bld) [Mass/Vol] 10.9 g/dL Low 13.5 - 17.5 g/dL [facility] Interpretation and review of laboratory results Abnormal [facility] MCH (RBC) [Entitic mass] 27.9 pg 26 - 34 pg [facility] MCHC (RBC) [Mass/Vol] 32.3 g/dL 31 - 3 7 g/dL [facility] MCV (RBC) [Entitic vol] 86.2 fL 80 - 100 fL [facility] Nucleated RBC (Bld) [#/Vol] 0.00 10*3/uL [facility] Nucleated RBC/100 WBC (Bld) [Ratio] 0.0 % [facility] Platelet mean volume (Bld) [Entitic vol] 9.7 fL 9 - 15.5 fL [facility] Platelets (Bld) [#/Vol] 277 10*3/uL [facility] RBC (Bld) [#/Vol] 3.91 10*6/uL Low [facility] ealth WBC (Bld) [#/Vol] 9.70 10*3/uL [facility] ECG 12-LEADon 01-29-2019 Atrial Rate 84 BPM [facility] P [place] 51 degrees [facility] P-R Interval 168 ms [facility] Q-T Interval 344 ms [facility] QRS Duration 92 ms [facility] QTC Calculation (Bezet) 406 ms [facility] [place] 17 degrees [facility] T [place] 66 degrees [facility] Ventricular Rate 84 BPM [facility] Normal sinus rhythm Anterolateral infarct , age undetermined Abnormal ECG Confirmed by Torie Au MD ([id number]) on 01/29/2019 1:02:22 PM [facility] Magnesium Levelon 01-29-2019 Interpretation and review of laboratory results Normal [facility] Magnesium [Mass/Vol] 2.3 mg/dL 1.6 - 2 .4 mg/dL [facility] POC Glucoseon 01-29-2019 Glucose [Mass/Vol] 102 mg/dL High 65 - 99 mg/dL [facility] Interpretation and review of laboratory results Abnormal [facility] Glucose [Mass/Vol] 104 mg/dL High 65 - 99 mg/dL [facility] Interpretation and review of laboratory results Abnormal [facility] TROPONINon 01-29-2019 Troponin I.cardiac [Mass/Vol] ng/mL <=45 ng/L [facility] Troponin I.cardiac [Mass/Vol] Normal [facility] XR Chest 1 Viewon 01-29-2019 Interval removal of the right internal jugular catheter. The cardiopulmonary structures are stable. 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 TECHNIQUE: AP upright portable chest. FINDINGS: The lungs are clear and well expanded. Hemidiaphragms are smooth. Heart size is normal. There are mediastinal surgical changes with sternal wires present. The right internal jugular catheter has been removed. section leader screen printing leads are noted upon the chest wall. IMPRESSION: Interval removal of the right internal jugular catheter. The cardiopulmonary structures are stable. 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 TECHNIQUE: AP upright portable chest. FINDINGS: The lungs are clear and well expanded. Hemidiaphragms are smooth. Heart size is normal. There are mediastinal surgical changes with sternal wires present. The right internal jugular catheter has been removed. section leader screen printing leads are noted upon the chest wall. [facility] Basic Metabolic Panelon 01-12 Anion gap [Moles/Vol] 9 mmol/L Low 10 - 2 0 mmol/L [facility] Calcium [Mass/Vol] 8.2 mg/dL Low 8.4 - 10. 2 mg/dL [facility] Chloride [Moles/Vol] 105 mmol/L 98 - 10 8 mmol/L [facility] Creatinine [Mass/Vol] 1.04 mg/dL 0.5 - 1.3 mg/dL [facility] GFR/1.73 sq M.predicted CKD-EPI (S/P/Bld) [Vol rate/Area] 85 >=60 mL/min/1.7 3 m2 [facility] Glucose [Mass/Vol] 105 mg/dL High 65 - 99 mg/dL [facility] HCO3 [Moles/Vol] 26 mmol/L 21 - 32 mmol/L [facility] Interpretation and review of laboratory results Abnormal [facility] Potassium [Moles/Vol] 4.1 mmol/L 3.5 - 5.1 mmol/L [facility] Sodium [Moles/Vol] 136 mmol/L 135 - 145 mmol/L [facility] Urea nitrogen [Mass/Vol] 31 mg/dL High 8 - 25 mg/dL [facility] Urea nitrogen/Creatinine [Mass ratio] 29.8 mg/mg High [facility] The eGFR should be u sed for monitoring renal function only and not for medication dosing. [facility] CBCon 01-28-2019 Erythrocyte distribution width (RBC) [Entitic vol] 14.2 % 11.6 - 14.8 % [facility] Hematocrit (Bld) [Volume fraction] 30.5 % Low 41 - 53 % [facility] Hemoglobin (Bld) [Mass/Vol] 10.1 g/dL Low 13.5 - 17.5 g/dL [facility] Interpretation and review of laboratory results Abnormal [facility] MCH (RBC) [Entitic mass] 28.2 pg 26 - 34 pg [facility] MCHC (RBC) [Mass/Vol] 33.1 g/dL 31 - 3 7 g/dL [facility] MCV (RBC) [Entitic vol] 85.2 fL 80 - 100 fL [facility] Nucleated RBC (Bld) [#/Vol] 0.00 10*3/uL [facility] Nucleated RBC/100 WBC (Bld) [Ratio] 0.0 % [facility] Platelet mean volume (Bld) [Entitic vol] 9.8 fL 9 - 15.5 fL [facility] Platelets (Bld) [#/Vol] 212 10*3/uL [facility] RBC (Bld) [#/Vol] 3.58 10*6/uL Low [facility]alth WBC (Bld) [#/Vol] 10.07 10*3/uL [facility] Magnesium Levelon 01-28-2019 Interpretation and review of laboratory results Normal [facility] Magnesium [Mass/Vol] 2.4 mg/dL 1.6 - 2 .4 mg/dL [facility] POC Glucoseon 01-28-2019 Glucose [Mass/Vol] 113 mg/dL High 65 - 99 mg/dL [facility] Interpretation and review of laboratory results Abnormal [facility] Glucose [Mass/Vol] 114 mg/dL High 65 - 99 mg/dL [facility] Interpretation and review of laboratory results Abnormal [facility] Glucose [Mass/Vol] 93 mg/dL 65 - 99 mg/dL [facility] Interpretation and review of laboratory results Normal [facility] Glucose [Mass/Vol] 110 mg/dL High 65 - 99 mg/dL [facility] Interpretation and review of laboratory results Abnormal [facility] Glucose [Mass/Vol] 115 mg/dL High 65 - 99 mg/dL [facility] Interpretation and review of laboratory results Abnormal [facility] XR Chest 1 Viewon 01-28-2019 Cardiomegaly. No pulmonary edema. Linear scarring or atelectasis at the left lung apex and left lung base, as before. [facility] Workstation ID: [id number] [facility] Interface, Rad In Luis Fernando yi [...] without long-term current use of insulin ([facility]) I25.10 Coronary artery disease, angina presence unspecified, unspecified vessel or lesion type, unspecified whether [place] or transplanted heart COMPARISON: 01/27/2019 and 01/26/2019. [...] and left lung base, as before. [facility] Workstation ID: [id number] [facility] EXAMINATION: XR CHES T PA/AP HISTORY: ORDERING SYSTEM PROVIDED HISTORY: post open heart surgery, TECHNOLOGIST PROVIDED HISTORY: Illness/Other Reason for exam: S/P CABG Cancer History: u Surgery, RadiationHistory: yes Encounter Type: Subsequent/Follow-up Additional signs and symptoms: NA ORDERING SYSTEM PROVIDED DIAGNOSIS CODES: R07.89 Chest pain, atypical E11.9 Type 2 diabetes mellitus without complication, without long-term current use of insulin ([facility]) I25.10 Coronary artery disease, angina presence unspecified, unspecified vessel or lesion type, unspecified whether [place] or transplanted heart COMPARISON: 01/27/2019 and 01/26/2019. FINDINGS: Right IJ central venous catheter with tip projected over the mid SVC. Prior median sternotomy and CABG. Cardiomegaly. No pulmonary edema, pleural effusion or pneumothorax. Persistent linear atelectatic changes at the left lung apex and left lung base. Osseous structures are intact. [facility] AMYLASEon 01-27-2019 Amylase [Catalytic activity/Vol] 28 U/L 25 - 115 U/L [facility] Interpretation and review of laboratory results Normal [facility] Basic Metabolic Panelon 01-12 Anion gap [Moles/Vol] 16 mmol/L 10 - 2 0 mmol/L [facility] Calcium [Mass/Vol] 8.6 mg/dL 8.4 - 10. 2 mg/dL [facility] Chloride [Moles/Vol] 97 mmol/L Low 98 - 10 8 mmol/L [facility] Creatinine [Mass/Vol] 3.10 mg/dL High 0.5 - 1.3 mg/dL [facility] GFR/1.73 sq M.predicted CKD-EPI (S/P/Bld) [Vol rate/Area] 23 Low >=60 mL/min/1.7 3 m2 [facility] Glucose [Mass/Vol] 123 mg/dL High 65 - 99 mg/dL [facility] HCO3 [Moles/Vol] 23 mmol/L 21 - 32 mmol/L [facility] Interpretation and review of laboratory results Abnormal [facility] Potassium [Moles/Vol] 4.5 mmol/L 3.5 - 5.1 mmol/L [facility] Sodium [Moles/Vol] 131 mmol/L Low 135 - 145 mmol/L [facility] Urea nitrogen [Mass/Vol] 43 mg/dL High 8 - 25 mg/dL [facility] Urea nitrogen/Creatinine [Mass ratio] 13.9 mg/mg [facility] The eGFR should be u sed for monitoring renal function only and not for medication dosing. [facility] CBCon 01-27-2019 Erythrocyte distribution width (RBC) [Entitic vol] 14.0 % 11.6 - 14.8 % [facility] Hematocrit (Bld) [Volume fraction] 33.9 % Low 41 - 53 % [facility] Hemoglobin (Bld) [Mass/Vol] 11.2 g/dL Low 13.5 - 17.5 g/dL [facility] Interpretation and review of laboratory results Abnormal [facility] MCH (RBC) [Entitic mass] 28.3 pg 26 - 34 pg [facility] MCHC (RBC) [Mass/Vol] 33.0 g/dL 31 - 3 7 g/dL [facility] MCV (RBC) [Entitic vol] 85.6 fL 80 - 100 fL [facility] Nucleated RBC (Bld) [#/Vol] 0.00 10*3/uL [facility] Nucleated RBC/100 WBC (Bld) [Ratio] 0.0 % [facility] Platelet mean volume (Bld) [Entitic vol] 10.2 fL 9 - 15.5 fL [facility] Platelets (Bld) [#/Vol] 194 10*3/uL [facility] RBC (Bld) [#/Vol] 3.96 10*6/uL Low [facility] ealt WBC (Bld) [#/Vol] 16.03 10*3/uL High [facility] ECG 12-LEADon 01-27-2019 Atrial Rate 105 BPM [facility] P [place] 50 degrees [facility] P-R Interval 144 ms [facility] Q-T Interval 314 ms [facility] QRS Duration 86 ms [facility] QTC Calculation (Bezet) 415 ms [facility] [place] 14 degrees [facility] T [place] 52 degrees [facility] Ventricular Rate 105 BPM [facility] th Sinus tachycardia Possible Left atrial enlargement Low voltage QRS Cannot rule out Anteroseptal infarct , age undetermined Lateral injury pattern ACUTE NH / STEMI Abnormal ECG Confirmed by Kelsea WARREN, Torie ([id number]) on 01/27/2019 2:33:32 PM [facility] ECHOCARDIOGRAM LIMITED WITH CONTRASTon 01-27-2019 Interface, Rad In [email or web address] - 01/27/2019 8:22 AM EST [address] [address] [place] [address] ----- ECHOCARDIOGRAPHY REPORT - [facility] ----- Name: FERNANDO HELTON Age: 48 years Date: 01/27/2019 Hospital #: [id number] : 1970 Room: [address] [place] [address] #: [id number] Sex: M Tech: Giovana Hale Ordering Physician: [id number] KRISTIN MACHUCA Height: 66.00 in Sys BP: 92 WALKER cc: , Weight: 250.00 Mira BP: 48 Reading Physician: [id number] TORIE TERRELL Rhythm: Normal sinus AU/ rhythm Electronically Signed [id number] TORIE TERRELL BSA: 2.20 m by: AU [...] 75 Female) LA Index (BP) TAPSE LAESV QUARTER SEAMER NOTES: Limited subcostal views due to wound dressings. Definity (if used): 2ml Final IMPRESSION: Limited echo for repeat assessment of LV function [address] [address] [place] [address] ----- ECHOCARDIOGRAPHY REPORT - [facility] ----- Name: FERNANDO HELTON Age: 48 years Date: 01/27/2019 Hospital #: [id number] : 1970 Room: [address] [place] [address] #: [id number] Sex: M Tech: Giovana Hale Ordering Physician: [id number] KRISTIN MACHUCA Height: 66.00 in Sys BP: 92 WALKER cc: , Weight: 250.00 Mira BP: 48 Reading Physician: [id number] TORIE TERRELL Rhythm: Normal sinus KELSEA/ rhythm Electronically Signed [id number] TORIE TERRELL BSA: 2.20 m by: KELSEA [...] 75 Female) LA Index (BP) TAPSE LAESV QUARTER SEAMER NOTES: Limited subcostal views due to wound dressings. Definity (if used): 2ml Final [facility] Limited echo for rep eat assessment of LV function [facility] Hepatic Function Panelon Albumin [Mass/Vol] 2.6 g/dL Low 3.2 - 5.2 g/dL [facility] ALP [Catalytic activity/Vol] 41 U/L 40 - 150 U/L [facility] ALT [Catalytic activity/Vol] 35 U/L 14 - 65 U/L [facility] AST [Catalytic activity/Vol] 39 U/L 0 - 45 U/L [facility] Bilirubin [Mass/Vol] 0.8 mg/dL 0 - 1.3 mg/dL [facility] Bilirubin.conjugated [Mass/Vol] 0.2 mg/dL 0 - 0.4 mg/dL [facility] Protein [Mass/Vol] 6.1 g/dL 6 - 8 g/dL [facility] alth Lipaseon 01-27-2019 Lipase [Catalytic activity/Vol] 57 U/L Low 73 - 393 U/L [facility] Magnesium Levelon 01-27-2019 Interpretation and review of laboratory results Normal [facility] Magnesium [Mass/Vol] 2.4 mg/dL 1.6 - 2 .4 mg/dL [facility] Otheron 01-27-2019 Interpretation and review of laboratory results Abnormal [facility] POC Glucoseon 01-27-2019 Glucose [Mass/Vol] 113 mg/dL High 65 - 99 mg/dL [facility] Interpretation and review of laboratory results Abnormal [facility] Glucose [Mass/Vol] 111 mg/dL High 65 - 99 mg/dL [facility] Interpretation and review of laboratory results Abnormal [facility] Glucose [Mass/Vol] 117 mg/dL High 65 - 99 mg/dL [facility] Interpretation and review of laboratory results Abnormal [facility] TROPONINon 01-27-2019 Troponin I.cardiac [Mass/Vol] Normal [facility] Troponin I.cardiac [Mass/Vol] 28 ng/L <=45 [facility] XR ABDOMEN 1 VIEWon 01-28-20 19 [...] without long-term current use of insulin ([facility]) I25.10 Coronary artery disease, angina presence unspecified, unspecified vessel or lesion type, unspecified whether [place] or transplanted heart COMPARISON: CT abdomen and pelvis 05/01/2015. FINDINGS: Two images were utilized to encompass the abdomen and pelvis. There is mild gaseous distention of the colon with gas extending into the rectum. No definite small bowel dilatation. No large collection of free intraperitoneal air. Postsurgical findings median sternotomy. IMPRESSION: Nonobstructive bowel gas pattern with mild colonic distention. [facility]/ Workstation ID: [id number] [facility] EXAMINATION: XR ABDO MEN /KUB/FLAT PLATE/1 VIEW 01/27/2019 7:56 am HISTORY: ORDERING SYSTEM PROVIDED HISTORY: ABD distension, TECHNOLOGIST PROVIDED HISTORY: Illness/Other Reason for exam: ABD distension Cancer History: u Surgery, RadiationHistory: yes Encounter Type: Initial Additional signs and symptoms: ABD [facility] ORDERING SYSTEM PROVIDED DIAGNOSIS CODES: R07.89 Chest pain, atypical E11.9 Type 2 diabetes mellitus without complication, without long-term current use of insulin ([facility]) I25.10 Coronary artery disease, angina presence unspecified, unspecified vessel or lesion type, unspecified whether [place] or transplanted heart COMPARISON: CT abdomen and pelvis 05/01/2015. FINDINGS: Two images were utilized to encompass the abdomen and pelvis. There is mild gaseous distention of the colon with gas extending into the rectum. No definite small bowel dilatation. No large collection of free intraperitoneal air. Postsurgical findings median sternotomy. [facility] Nonobstructive bowel gas pattern with mild colonic distention. [facility] Workstation ID: [id number] [facility] XR Chest 1 Viewon 01-27-2019 Status post sternoto my. Mild residual left apical and left base atelectatic findings. [facility] Workstation ID: [id number] [facility] Interface, Rad In Fu ji Speechq [...] left apical and left base atelectatic findings. [facility] Workstation ID: [id number] [facility] EXAMINATION: XR CHES T PA/AP HISTORY: [...] No major consolidation or edema is seen. [facility] Basic Metabolic Panelon 01-12 Anion gap [Moles/Vol] 13 mmol/L 10 - 2 0 mmol/L [facility] Calcium [Mass/Vol] 8.3 mg/dL Low 8.4 - 10. 2 mg/dL [facility] Chloride [Moles/Vol] 102 mmol/L 98 - 10 8 mmol/L [facility] Creatinine [Mass/Vol] 1.03 mg/dL 0.5 - 1.3 mg/dL [facility] GFR/1.73 sq M.predicted CKD-EPI (S/P/Bld) [Vol rate/Area] 86 >=60 mL/min/1.7 3 m2 [facility] Glucose [Mass/Vol] 116 mg/dL High 65 - 99 mg/dL [facility] HCO3 [Moles/Vol] 24 mmol/L 21 - 32 mmol/L [facility] Interpretation and review of laboratory results Abnormal [facility] Potassium [Moles/Vol] 4.3 mmol/L 3.5 - 5.1 mmol/L [facility] Sodium [Moles/Vol] 135 mmol/L 135 - 145 mmol/L [facility] Urea nitrogen [Mass/Vol] 21 mg/dL 8 - 25 mg/dL [facility] Urea nitrogen/Creatinine [Mass ratio] 20.4 mg/mg High [facility] The eGFR should be u sed for monitoring renal function only and not for medication dosing. [facility] CBCon 01-26-2019 Erythrocyte distribution width (RBC) [Entitic vol] 14.1 % 11.6 - 14.8 % [facility] Hematocrit (Bld) [Volume fraction] 39.4 % Low 41 - 53 % [facility] Hemoglobin (Bld) [Mass/Vol] 13.0 g/dL Low 13.5 - 17.5 g/dL [facility] Interpretation and review of laboratory results Abnormal [facility] MCH (RBC) [Entitic mass] 27.8 pg 26 - 34 pg [facility] MCHC (RBC) [Mass/Vol] 33.0 g/dL 31 - 3 7 g/dL [facility] [facility] MCV (RBC) [Entitic vol] 84.4 fL 80 - 100 fL [facility] Nucleated RBC (Bld) [#/Vol] 0.00 10*3/uL [facility] Nucleated RBC/100 WBC (Bld) [Ratio] 0.0 % [facility] Platelet mean volume (Bld) [Entitic vol] 10.2 fL 9 - 15.5 fL [facility] Platelets (Bld) [#/Vol] 183 10*3/uL [facility] RBC (Bld) [#/Vol] 4.67 10*6/uL [facility] ealth WBC (Bld) [#/Vol] 14.20 10*3/uL [facility] Magnesium Levelon 01-26-2019 Interpretation and review of laboratory results Normal [facility] Magnesium [Mass/Vol] 2.2 mg/dL 1.6 - 2 .4 mg/dL [facility] POC Glucoseon 01-26-2019 Glucose [Mass/Vol] 128 mg/dL High 65 - 99 mg/dL [facility] Interpretation and review of laboratory results Abnormal [facility] Glucose [Mass/Vol] 112 mg/dL High 65 - 99 mg/dL [facility] Interpretation and review of laboratory results Abnormal [facility] Glucose [Mass/Vol] 111 mg/dL High 65 - 99 mg/dL [facility] Interpretation and review of laboratory results Abnormal [facility] Glucose [Mass/Vol] 117 mg/dL High 65 - 99 mg/dL [facility] Interpretation and review of laboratory results Abnormal [facility] Glucose [Mass/Vol] 110 mg/dL High 65 - 99 mg/dL [facility] Interpretation and review of laboratory results Abnormal [facility] Urine Aerobic Cultureon 01-12 Bacteria identified Aer cx Nom (Unsp spec) No Growth (<1,000 CFU/mL) [facility] oHeal XR Chest 1 Viewon 01-26-2019 Interface, [...] without long-term current use of insulin ([facility] I25.10 Coronary artery disease, angina presence unspecified, unspecified vessel or lesion type, unspecified whether [place] or transplanted heart COMPARISON: 01/26/2019 FINDINGS: One-view [...] pulmonary venous congestion. ST/hb Workstation ID: [id number] [facility] EXAMINATION: XR CHES T PA/AP HISTORY: [...] unspecified vessel or lesion type, unspecified whether [place] or transplanted heart COMPARISON: 01/26/2019 FINDINGS: One-view chest x-ray. Left basilar chest tube has been removed. Stable position of right central venous catheter. Low lung volumes. No pneumothorax. Mild pulmonary venous congestion. No pleural effusions. Left upper lobe subsegmental linear atelectasis. Prominent heart size. Postoperative changes of median sternotomy and CABG. Stable mediastinal contours. [facility] Interval left basila r chest tube removal. No pneumothorax. Recent CABG. Stable mediastinal contours. Mild pulmonary venous congestion. ST/hb Workstation ID: [id number] [facility] Interval removal of right jugular Kenney-Isaiah catheter. Sheath remains in place. No pneumothorax. Mild pulmonary venous congestion. Recent CABG postoperative changes. ST/dnb Workstation ID: [id number] [facility] Interface, Rad In Luis Fernando Garciaq [...] unspecified vessel or lesion type, unspecified whether [place] or transplanted heart COMPARISON: 01/25/2019. FINDINGS: One-view chest x-ray. Interval removal of right jugular Kenney-Isaiah catheter. Right jugular sheath remains in place and, tip projects over the superior vena cava. Stable position of left basilar chest tube. Low lung volumes. No pneumothorax. Mild pulmonary venous congestion. Left upper lobe subsegmental linear atelectasis. No significant pleural effusions. Cardiomegaly. Postoperative changes of median sternotomy and CABG. Improved prominence of the mediastinum. IMPRESSION: Interval removal of right jugular Kenney-Isaiah catheter. Sheath remains in place. No pneumothorax. Mild pulmonary venous congestion. Recent CABG postoperative changes. ST/dnb Workstation ID: [id number] [facility] EXAMINATION: XR CHES T PA/AP HISTORY: ORDERING SYSTEM PROVIDED HISTORY: post open heart surgery, TECHNOLOGIST PROVIDED HISTORY: Illness/Other Reason for exam: post cabg Cancer History: u Surgery, RadiationHistory: yes Encounter Type: Ongoing Additional signs and symptoms: . ORDERING SYSTEM PROVIDED DIAGNOSIS CODES: R07.89 Chest pain, atypical E11.9 Type 2 diabetes mellitus without complication, without long-term current use of insulin ([facility]) I25.10 Coronary artery disease, angina presence unspecified, unspecified vessel or lesion type, unspecified whether [place] or transplanted heart COMPARISON: 01/25/2019. FINDINGS: One-view chest x-ray. Interval removal of right jugular Kenney-Isaiah catheter. Right jugular sheath remains in place and, tip projects over the superior vena cava. Stable position of left basilar chest tube. Low lung volumes. No pneumothorax. Mild pulmonary venous congestion. Left upper lobe subsegmental linear atelectasis. No significant pleural effusions. Cardiomegaly. Postoperative changes of median sternotomy and CABG. Improved prominence of the mediastinum. [facility] Basic Metabolic Panelon 01-12 Anion gap [Moles/Vol] 13 mmol/L 10 - 2 0 mmol/L [facility] Calcium [Mass/Vol] 8.2 mg/dL Low 8.4 - 10. 2 mg/dL [facility] Chloride [Moles/Vol] 100 mmol/L 98 - 10 8 mmol/L [facility] Creatinine [Mass/Vol] 1.20 mg/dL 0.5 - 1.3 mg/dL [facility] GFR/1.73 sq M.predicted CKD-EPI (S/P/Bld) [Vol rate/Area] 72 >=60 mL/min/1.7 3 m2 [facility] Glucose [Mass/Vol] 141 mg/dL High 65 - 99 mg/dL [facility] HCO3 [Moles/Vol] 24 mmol/L 21 - 32 mmol/L [facility] Interpretation and review of laboratory results Abnormal [facility] Potassium [Moles/Vol] 4.5 mmol/L 3.5 - 5.1 mmol/L [facility] Sodium [Moles/Vol] 132 mmol/L Low 135 - 145 mmol/L [facility] Urea nitrogen [Mass/Vol] 22 mg/dL 8 - 25 mg/dL [facility] Urea nitrogen/Creatinine [Mass ratio] 18.3 mg/mg [facility] The eGFR should be u sed for monitoring renal function only and not for medication dosing. [facility] CBCon 01-25-2019 Erythrocyte distribution width (RBC) [Entitic vol] 14.0 % 11.6 - 14.8 % [facility] Hematocrit (Bld) [Volume fraction] 38.5 % Low 41 - 53 % [facility] Hemoglobin (Bld) [Mass/Vol] 12.9 g/dL Low 13.5 - 17.5 g/dL [facility] Interpretation and review of laboratory results Abnormal [facility] MCH (RBC) [Entitic mass] 28.0 pg 26 - 34 pg [facility] MCHC (RBC) [Mass/Vol] 33.5 g/dL 31 - 3 7 g/dL [facility] MCV (RBC) [Entitic vol] 83.5 fL 80 - 100 fL [facility] Nucleated RBC (Bld) [#/Vol] 0.00 10*3/uL [facility] Nucleated RBC/100 WBC (Bld) [Ratio] 0.0 % [facility] Platelet mean volume (Bld) [Entitic vol] 9.9 fL 9 - 15.5 fL [facility] Platelets (Bld) [#/Vol] 211 10*3/uL [facility] RBC (Bld) [#/Vol] 4.61 10*6/uL [facility] ealth WBC (Bld) [#/Vol] 15.83 10*3/uL [facility] Magnesium Levelon 01-25-2019 Interpretation and review of laboratory results Normal [facility] Magnesium [Mass/Vol] 2.0 mg/dL 1.6 - 2 .4 mg/dL [facility] POC ARTERIAL BLOOD GAS PANEL -PUL - [facility] 01-25-2019 Alveolar-arterial oxygen Partial pressure difference 41.2 mm Hg [facility] Base excess Calc (Bld) [Moles/Vol] 1.0 mmol/L [facility] Breath rate setting Ventilator synchronized intermittent mandatory 0 [facility] h CO2 (Bld) [Partial pressure] 36.3 mm[Hg] [facility] HCO3 (Bld) [Moles/Vol] 24.9 mmol/L 22 - 26 mmol/L [facility] Hematocrit (BldA) [Volume fraction] 44.2 % 41 - 53 % [facility] Hemoglobin (Bld) [Mass/Vol] 14.4 g/dL 13.5 - 18 g/dL [facility] Inhaled oxygen concentration 21 % [facility] Interpretation and review of laboratory results Abnormal [facility] Oxygen (Bld) [Partial pressure] 58 mm[Hg] Low [facility] pH (Bld) 7.44 [pH] [facility] Result Notification pt on room air [facility] SaO2% (BldA) [Mass fraction] 91.2 % Low 92 - 99 % [facility] Tidal volume setting Ventilator 0 [facility] POC Glucoseon 01-25-2019 Glucose [Mass/Vol] 125 mg/dL High 65 - 99 mg/dL [facility] Interpretation and review of laboratory results Abnormal [facility] Glucose [Mass/Vol] 109 mg/dL High 65 - 99 mg/dL [facility] Interpretation and review of laboratory results Abnormal [facility] Glucose [Mass/Vol] 129 mg/dL High 65 - 99 mg/dL [facility] Interpretation and review of laboratory results Abnormal [facility] Glucose [Mass/Vol] 119 mg/dL High 65 - 99 mg/dL [facility] Interpretation and review of laboratory results Abnormal [facility] Glucose [Mass/Vol] 117 mg/dL High 65 - 99 mg/dL [facility] Interpretation and review of laboratory results Abnormal [facility] Glucose [Mass/Vol] 127 mg/dL High 65 - 99 mg/dL [facility] Interpretation and review of laboratory results Abnormal [facility] Glucose [Mass/Vol] 132 mg/dL High 65 - 99 mg/dL [facility] Interpretation and review of laboratory results Abnormal [facility] Glucose [Mass/Vol] 140 mg/dL High 65 - 99 mg/dL [facility] Interpretation and review of laboratory results Abnormal [facility] Glucose [Mass/Vol] 129 mg/dL High 65 - 99 mg/dL [facility] Interpretation and review of laboratory results Abnormal [facility] XR Chest 1 Viewon 01-25-2019 EXAMINATION: [...] without long-term current use of insulin ([facility]) I25.10 Coronary artery disease, angina presence unspecified, unspecified vessel or lesion type, unspecified whether [place] or transplanted heart COMPARISON: 01/24/2019 FINDINGS: Endotracheal tube and NG tube have been removed. Kenney-Isaiah catheter tip is in the right main pulmonary artery. Heart is mildly enlarged with a left ventricular contour. Vascularity is unremarkable. Right lung is unremarkable. There is been slight improvement in atelectasis in the left upper lobe. There is been interval development of a small amount of atelectasis versus early infiltrate in the left lung base. No pneumothorax is identified. [facility] Interface, Rad In Fu ji Speechq [...] unspecified vessel or lesion type, unspecified whether [place] or transplanted heart COMPARISON: 01/24/2019 FINDINGS: Endotracheal tube and NG tube have been removed. Kenney-Isaiah catheter tip is in the right main [...] and endotracheal tube have been removed. 2. Kenney-Isaiah catheter tip is in the right main pulmonary artery. 3. Improvement in the atelectasis in the left upper lobe. 4. Interval development of atelectasis versus early infiltrate in the left lung base. Workstation ID: [id number] [facility] 1. NG tube and endotracheal tube have been removed. 2. Kenney-Isaiah catheter tip is in the right main pulmonary artery. 3. Improvement in the atelectasis in the left upper lobe. 4. Interval development of atelectasis versus early infiltrate in the left lung base. Workstation ID: [id number] [facility] APTTon 01-24-2019 aPTT Coag (Bld) [Time] 28 s [facility] Therapeutic range fo r APTT's is 68 - 104 seconds [facility] aPTT Coag (Bld) [Time] 27 s [facility] Therapeutic range fo r APTT's is 68 - 104 seconds [facility] aPTT Coag (Bld) [Time] 59 s High [facility] Interpretation and review of laboratory results Abnormal [facility] Therapeutic range fo r APTT's is 68 - 104 seconds [facility] Basic Metabolic Panelon 01-12 Anion gap [Moles/Vol] 11 mmol/L 10 - 2 0 mmol/L [facility] Calcium [Mass/Vol] 8.6 mg/dL 8.4 - 10. 2 mg/dL [facility] Chloride [Moles/Vol] 100 mmol/L 98 - 10 8 mmol/L [facility] Creatinine [Mass/Vol] 1.25 mg/dL 0.5 - 1.3 mg/dL [facility] GFR/1.73 sq M.predicted CKD-EPI (S/P/Bld) [Vol rate/Area] 68 >=60 mL/min/1.7 3 m2 [facility] Glucose [Mass/Vol] 122 mg/dL High 65 - 99 mg/dL [facility] HCO3 [Moles/Vol] 25 mmol/L 21 - 32 mmol/L [facility] Interpretation and review of laboratory results Abnormal [facility] Potassium [Moles/Vol] 5.0 mmol/L 3.5 - 5.1 mmol/L [facility] Sodium [Moles/Vol] 131 mmol/L Low 135 - 145 mmol/L [facility] Urea nitrogen [Mass/Vol] 30 mg/dL High 8 - 25 mg/dL [facility] Urea nitrogen/Creatinine [Mass ratio] 24.0 mg/mg High [facility] The eGFR should be u sed for monitoring renal function only and not for medication dosing. [facility] Anion gap [Moles/Vol] 14 mmol/L 10 - 2 0 mmol/L [facility] Calcium [Mass/Vol] 8.2 mg/dL Low 8.4 - 10. 2 mg/dL [facility] Chloride [Moles/Vol] 100 mmol/L 98 - 10 8 mmol/L [facility] Creatinine [Mass/Vol] 1.31 mg/dL High 0.5 - 1.3 mg/dL [facility] GFR/1.73 sq M.predicted CKD-EPI (S/P/Bld) [Vol rate/Area] 64 >=60 mL/min/1.7 3 m2 [facility] Glucose [Mass/Vol] 130 mg/dL High 65 - 99 mg/dL [facility] HCO3 [Moles/Vol] 24 mmol/L 21 - 32 mmol/L [facility] Interpretation and review of laboratory results Abnormal [facility] Potassium [Moles/Vol] 3.7 mmol/L 3.5 - 5.1 mmol/L [facility] Sodium [Moles/Vol] 134 mmol/L Low 135 - 145 mmol/L [facility] Urea nitrogen [Mass/Vol] 26 mg/dL High 8 - 25 mg/dL [facility] Urea nitrogen/Creatinine [Mass ratio] 19.8 mg/mg [facility] The eGFR should be u sed for monitoring renal function only and not for medication dosing. [facility] Anion gap [Moles/Vol] 13 mmol/L 10 - 2 0 mmol/L [facility] Calcium [Mass/Vol] 9.0 mg/dL 8.4 - 10. 2 mg/dL [facility] Chloride [Moles/Vol] 98 mmol/L 98 - 10 8 mmol/L [facility] Creatinine [Mass/Vol] 1.19 mg/dL 0.5 - 1.3 mg/dL [facility] GFR/1.73 sq M.predicted CKD-EPI (S/P/Bld) [Vol rate/Area] 72 >=60 mL/min/1.7 3 m2 [facility] Glucose [Mass/Vol] 148 mg/dL High 65 - 99 mg/dL [facility] HCO3 [Moles/Vol] 27 mmol/L 21 - 32 mmol/L [facility] Interpretation and review of laboratory results Abnormal [facility] Potassium [Moles/Vol] 3.6 mmol/L 3.5 - 5.1 mmol/L [facility] Sodium [Moles/Vol] 134 mmol/L Low 135 - 145 mmol/L [facility] Urea nitrogen [Mass/Vol] 26 mg/dL High 8 - 25 mg/dL [facility] Urea nitrogen/Creatinine [Mass ratio] 21.8 mg/mg High [facility] The eGFR should be u sed for monitoring renal function only and not for medication dosing. [facility] CBCon 01-24-2019 Erythrocyte distribution width (RBC) [Entitic vol] 13.7 % 11.6 - 14.8 % [facility] Hematocrit (Bld) [Volume fraction] 36.8 % Low 41 - 53 % [facility] Hemoglobin (Bld) [Mass/Vol] 12.4 g/dL Low 13.5 - 17.5 g/dL [facility] Interpretation and review of laboratory results Abnormal [facility] MCH (RBC) [Entitic mass] 27.9 pg 26 - 34 pg [facility] MCHC (RBC) [Mass/Vol] 33.7 g/dL 31 - 3 7 g/dL [facility] MCV (RBC) [Entitic vol] 82.9 fL 80 - 100 fL [facility] Nucleated RBC (Bld) [#/Vol] 0.00 10*3/uL [facility] Nucleated RBC/100 WBC (Bld) [Ratio] 0.0 % [facility] Platelet mean volume (Bld) [Entitic vol] 10.1 fL 9 - 15.5 fL [facility] Platelets (Bld) [#/Vol] 203 10*3/uL [facility] RBC (Bld) [#/Vol] 4.44 10*6/uL Low [facility] WBC (Bld) [#/Vol] 12.07 10*3/uL [facility] CBC WITH AUTO DIFFERENTIALon 01-24-2019 Basophils (Bld) [#/Vol] 0.05 10*3/uL [facility] Basophils/100 WBC (Bld) 0.3 % [facility] (Bld) [#/Vol] 0.11 10*3/uL [facility] Eosinophils/100 WBC (Bld) 0.7 % [facility] Erythrocyte distribution width (RBC) [Entitic vol] 13.9 % 11.6 - 14.8 % [facility] Hematocrit (Bld) [Volume fraction] 37.5 % Low 41 - 53 % [facility] Hemoglobin (Bld) [Mass/Vol] 12.5 g/dL Low 13.5 - 17.5 g/dL [facility] Immature granulocytes (Bld) [#/Vol] 0.16 10*3/uL [facility] Immature granulocytes/100 WBC (Bld) 1.00 % [facility] Comment on above: The IG parameter is the percentage of metamyelocytes, myelocytes, and promyelocytes. Interpretation and review of laboratory results Abnormal [facility] Lymphocytes (Bld) [#/Vol] 1.58 10*3/uL [facility] Lymphocytes/100 WBC (Bld) 9.7 % [facility] MCH (RBC) [Entitic mass] 28.0 pg 26 - 34 pg [facility] MCHC (RBC) [Mass/Vol] 33.3 g/dL 31 - 3 7 g/dL [facility] MCV (RBC) [Entitic vol] 84.1 fL 80 - 100 fL [facility] Monocytes (Bld) [#/Vol] 1.47 10*3/uL High [facility] Monocytes/100 WBC (Bld) 9.1 % [facility] Neutrophils (Bld) [#/Vol] 12.85 10*3/uL High [facility] Neutrophils/100 WBC (Bld) 79.2 % [facility] Nucleated RBC (Bld) [#/Vol] 0.00 10*3/uL [facility] Nucleated RBC/100 WBC (Bld) [Ratio] 0.0 % [facility] Platelet mean volume (Bld) [Entitic vol] 10.1 fL 9 - 15.5 fL [facility] Platelets (Bld) [#/Vol] 227 10*3/uL [facility] RBC (Bld) [#/Vol] 4.46 10*6/uL Low [facility] WBC (Bld) [#/Vol] 16.22 10*3/uL [facility] Basophils (Bld) [#/Vol] 0.07 10*3/uL [facility] Basophils/100 WBC (Bld) 0.5 % [facility] Eosinophils (Bld) [#/Vol] 0.61 10*3/uL High [facility] Eosinophils/100 WBC (Bld) 4.0 % [facility] Erythrocyte distribution width (RBC) [Entitic vol] 13.8 % 11.6 - 14.8 % [facility] Hematocrit (Bld) [Volume fraction] 36.5 % Low 41 - 53 % [facility] Hemoglobin (Bld) [Mass/Vol] 12.2 g/dL Low 13.5 - 17.5 g/dL [facility] Immature granulocytes (Bld) [#/Vol] 0.22 10*3/uL [facility] Immature granulocytes/100 WBC (Bld) 1.40 % [facility] Comment on above: The IG parameter is the percentage of metamyelocytes, myelocytes, and promyelocytes. Interpretation and review of laboratory results Abnormal [facility] Lymphocytes (Bld) [#/Vol] 2.53 10*3/uL [facility] Lymphocytes/100 WBC (Bld) 16.6 % [facility] MCH (RBC) [Entitic mass] 27.9 pg 26 - 34 pg [facility] MCHC (RBC) [Mass/Vol] 33.4 g/dL 31 - 3 7 g/dL [facility] MCV (RBC) [Entitic vol] 83.3 fL 80 - 100 fL [facility] Monocytes (Bld) [#/Vol] 1.19 10*3/uL High [facility] Monocytes/100 WBC (Bld) 7.8 % [facility] Neutrophils (Bld) [#/Vol] 10.66 10*3/uL High [facility] Neutrophils/100 WBC (Bld) 69.7 % [facility] Nucleated RBC (Bld) [#/Vol] 0.00 10*3/uL [facility] Nucleated RBC/100 WBC (Bld) [Ratio] 0.0 % [facility] Platelet mean volume (Bld) [Entitic vol] 10.1 fL 9 - 15.5 fL [facility] Platelets (Bld) [#/Vol] 201 10*3/uL [facility] RBC (Bld) [#/Vol] 4.38 10*6/uL Low [facility] eah WBC (Bld) [#/Vol] 15.28 10*3/uL High [facility] Basophils (Bld) [#/Vol] 0.06 10*3/uL [facility] Basophils/100 WBC (Bld) 0.5 % [facility] Eosinophils (Bld) [#/Vol] 0.74 10*3/uL High [facility] Eosinophils/100 WBC (Bld) 6.8 % [facility] Erythrocyte distribution width (RBC) [Entitic vol] 13.8 % 11.6 - 14.8 % [facility] Hematocrit (Bld) [Volume fraction] 42.3 % 41 - 53 % [facility] Hemoglobin (Bld) [Mass/Vol] 14.0 g/dL 13.5 - 17.5 g/dL [facility] Immature granulocytes (Bld) [#/Vol] 0.12 10*3/uL [facility] Immature granulocytes/100 WBC (Bld) 1.10 % [facility] Comment on above: The IG parameter is the percentage of metamyelocytes, myelocytes, and promyelocytes. Interpretation and review of laboratory results Abnormal [facility] Lymphocytes (Bld) [#/Vol] 3.01 10*3/uL [facility] Lymphocytes/100 WBC (Bld) 27.6 % [facility] MCH (RBC) [Entitic mass] 27.7 pg 26 - 34 pg [facility] MCHC (RBC) [Mass/Vol] 33.1 g/dL 31 - 3 7 g/dL [facility] MCV (RBC) [Entitic vol] 83.6 fL 80 - 100 fL [facility] Monocytes (Bld) [#/Vol] 0.95 10*3/uL High [facility] Monocytes/100 WBC (Bld) 8.7 % [facility] Neutrophils (Bld) [#/Vol] 6.04 10*3/uL [facility] Neutrophils/100 WBC (Bld) 55.3 % [facility] Nucleated RBC (Bld) [#/Vol] 0.00 10*3/uL [facility] Nucleated RBC/100 WBC (Bld) [Ratio] 0.0 % [facility] Platelet mean volume (Bld) [Entitic vol] 10.1 fL 9 - 15.5 fL [facility] Platelets (Bld) [#/Vol] 230 10*3/uL [facility] RBC (Bld) [#/Vol] 5.06 10*6/uL [facility] WBC (Bld) [#/Vol] 10.92 10*3/uL [facility] Calcium, Ionizedon 9 Calcium.ionized [Mass/Vol] 4.6 mg/dL 4.5 - 5.3 mg/dL [facility] Interpretation and review of laboratory results Normal [facility] Calcium.ionized [Mass/Vol] 4.5 mg/dL 4.5 - 5.3 mg/dL [facility] Interpretation and review of laboratory results Normal [facility] Fibrinogenon 01-24-2019 Fibrinogen Coag (PPP) [Mass/Vol] 309 mg/dL 224 - 483 mg/dL [facility] Fibrinogen Coag (PPP) [Mass/Vol] 316 mg/dL 224 - 483 mg/dL [facility] Hematologyon 01-24-2019 pH (Bld) 7.44 [pH] [facility] ABO and Rh group Nom (Bld) O Neg [facility] ABO and Rh group Nom (Bld) 9500 [facility] Magnesium Levelon 01-24-2019 Interpretation and review of laboratory results Normal [facility] Magnesium [Mass/Vol] 2.0 mg/dL 1.6 - 2 .4 mg/dL [facility] Interpretation and review of laboratory results Normal [facility] Magnesium [Mass/Vol] 2.0 mg/dL 1.6 - 2 .4 mg/dL [facility] Metabolic Panelon 01-24-2019 Potassium [Moles/Vol] 3.8 mmol/L 3.5 - 5.1 mmol/L [facility] Otheron 01-24-2019 Interpretation and review of laboratory results Abnormal [facility] Interpretation and review of laboratory results Normal [facility] Interpretation and review of laboratory results Normal [facility] Interpretation and review of laboratory results Abnormal [facility] SaO2% (BldA) [Mass fraction] 100.0 % High 92 - 99 % [facility] Cross Match Compatible [facility] Product Code [id number] [facility] Product Code [id number] [facility] Product ID Red Blood Cells [facility] Status Info Released [facility] POC ABG SURG - RALSon 2018 Base Excess, Arterial 4 High [facility] Base Excess, Arterial 1 [facility] Base Excess, Arterial 3 High [facility] Calcium.ionized (Bld) [Mass/Vol] 4.7 mg/dL 4.5 - 5.3 mg/dL [facility] Calcium.ionized (Bld) [Mass/Vol] 4.9 mg/dL 4.5 - 5.3 mg/dL [facility] Calcium.ionized (Bld) [Mass/Vol] 4.6 mg/dL 4.5 - 5.3 mg/dL [facility] CO2 (Bld) [Partial pressure] 38.1 mm[Hg] [facility] CO2 (Bld) [Partial pressure] 53.2 mm[Hg] High [facility] CO2 (Bld) [Partial pressure] 40.5 mm[Hg] [facility] Glucose [Mass/Vol] 168 mg/dL High 65 - 99 mg/dL [facility] Glucose [Mass/Vol] 131 mg/dL High 65 - 99 mg/dL [facility] Glucose [Mass/Vol] 169 mg/dL High 65 - 99 mg/dL [facility] HCO3 (Bld) [Moles/Vol] 25.7 mmol/L 22 - 26 mmol/L [facility] HCO3 (Bld) [Moles/Vol] 27.3 mmol/L High 22 - 26 mmol/L [facility] HCO3 (Bld) [Moles/Vol] 30.4 mmol/L High 22 - 26 mmol/L [facility] Hematocrit (Bld) [Volume fraction] 39 % Low 41 - 53 % [facility] Hematocrit (Bld) [Volume fraction] 37 % Low 41 - 53 % [facility] Hematocrit (Bld) [Volume fraction] 40 % Low 41 - 53 % [facility] Hemoglobin (Bld) [Mass/Vol] 13.6 g/dL 13.5 - 17.5 g/dL [facility] Hemoglobin (Bld) [Mass/Vol] 12.6 g/dL Low 13.5 - 17.5 g/dL [facility] Hemoglobin (Bld) [Mass/Vol] 13.3 g/dL Low 13.5 - 17.5 g/dL [facility] Oxygen (Bld) [Partial pressure] 364 mm[Hg] High [facility] Oxygen (Bld) [Partial pressure] 432 mm[Hg] High [facility] Oxygen (Bld) [Partial pressure] 344 mm[Hg] High [facility] pH (Bld) 7.37 [pH] [facility] Sodium [Moles/Vol] 132 mmol/L Low 135 - 145 mmol/L [facility] Sodium [Moles/Vol] 134 mmol/L Low 135 - 145 mmol/L [facility] Sodium [Moles/Vol] 131 mmol/L Low 135 - 145 mmol/L [facility] POC ARTERIAL BLOOD GAS PANEL [facility] 01-24-2019 Alveolar-arterial oxygen Partial pressure difference 89.1 mm Hg [facility] Base excess Calc (Bld) [Moles/Vol] 1.1 mmol/L [facility] Breath rate setting Ventilator synchronized intermittent mandatory 0 [facility] h CO2 (Bld) [Partial pressure] 45.4 mm[Hg] High [facility] HCO3 (Bld) [Moles/Vol] 26.7 mmol/L High 22 - 26 mmol/L [facility] Hematocrit (BldA) [Volume fraction] 39.6 % Low 41 - 53 % [facility] Hemoglobin (Bld) [Mass/Vol] 12.9 g/dL Low 13.5 - 18 g/dL [facility] Inhaled oxygen concentration 40 % [facility] Interpretation and review of laboratory results Abnormal [facility] Oxygen (Bld) [Partial pressure] 132 mm[Hg] High [facility] PEEP Respiratory system 5 [facility] pH (Bld) 7.38 [pH] [facility] SaO2% (BldA) [Mass fraction] 98.7 % 92 - 99 % [facility] Tidal volume setting Ventilator 0 [facility] Alveolar-arterial oxygen Partial pressure difference 127.3 mm Hg [facility] Base excess Calc (Bld) [Moles/Vol] 1.0 mmol/L [facility] Breath rate setting Ventilator synchronized intermittent mandatory 0 [facility] h CO2 (Bld) [Partial pressure] 41.7 mm[Hg] [facility] HCO3 (Bld) [Moles/Vol] 26.0 mmol/L 22 - 26 mmol/L [facility] Hematocrit (BldA) [Volume fraction] 38.5 % Low 41 - 53 % [facility] Hemoglobin (Bld) [Mass/Vol] 12.5 g/dL Low 13.5 - 18 g/dL [facility] Inhaled oxygen concentration 40 % [facility] Interpretation and review of laboratory results Abnormal [facility] Oxygen (Bld) [Partial pressure] 98 mm[Hg] [facility] PEEP Respiratory system 5 [facility] pH (Bld) 7.40 [pH] [facility] SaO2% (BldA) [Mass fraction] 97.7 % 92 - 99 % [facility] Tidal volume setting Ventilator 800 [facility] Alveolar-arterial oxygen Partial pressure difference 307.3 mm Hg [facility] Base excess Calc (Bld) [Moles/Vol] 2.0 mmol/L [facility] Breath rate setting Ventilator synchronized intermittent mandatory 0 [facility] CO2 (Bld) [Partial pressure] 39.5 mm[Hg] [facility] HCO3 (Bld) [Moles/Vol] 26.4 mmol/L High 22 - 26 mmol/L [facility] Hematocrit (BldA) [Volume fraction] 39.5 % Low 41 - 53 % [facility] Hemoglobin (Bld) [Mass/Vol] 12.9 g/dL Low 13.5 - 18 g/dL [facility] Inhaled oxygen concentration 70 % [facility] Interpretation and review of laboratory results Abnormal [facility] Oxygen (Bld) [Partial pressure] 126 mm[Hg] High [facility] PEEP Respiratory system 5 [facility] pH (Bld) 7.43 [pH] [facility] SaO2% (BldA) [Mass fraction] 98.7 % 92 - 99 % [facility] Specimen source Nom (Unsp spec) Not specified [facility] Tidal volume setting Ventilator 800 [facility] POC Glucoseon 01-24-2019 Glucose [Mass/Vol] 120 mg/dL High 65 - 99 mg/dL [facility] Interpretation and review of laboratory results Abnormal [facility] Glucose [Mass/Vol] 132 mg/dL High 65 - 99 mg/dL [facility] Glucose [Mass/Vol] 119 mg/dL High 65 - 99 mg/dL [facility] Glucose [Mass/Vol] 122 mg/dL High 65 - 99 mg/dL [facility] Interpretation and review of laboratory results Abnormal [facility] Glucose [Mass/Vol] 134 mg/dL High 65 - 99 mg/dL [facility] Interpretation and review of laboratory results Abnormal [facility] Glucose [Mass/Vol] 131 mg/dL High 65 - 99 mg/dL [facility] Interpretation and review of laboratory results Abnormal [facility] Glucose [Mass/Vol] 114 mg/dL High 65 - 99 mg/dL [facility] Glucose [Mass/Vol] 121 mg/dL High 65 - 99 mg/dL [facility] Interpretation and review of laboratory results Abnormal [facility] Glucose [Mass/Vol] 137 mg/dL High 65 - 99 mg/dL [facility] Interpretation and review of laboratory results Abnormal [facility] Glucose [Mass/Vol] 149 mg/dL High 65 - 99 mg/dL [facility] Interpretation and review of laboratory results Abnormal [facility] Glucose [Mass/Vol] 169 mg/dL High 65 - 99 mg/dL [facility] Interpretation and review of laboratory results Abnormal [facility] Glucose [Mass/Vol] 108 mg/dL High 65 - 99 mg/dL [facility] Interpretation and review of laboratory results Abnormal [facility] PREPARE RBCon 01-24-2019 Product Code [id number] [facility] Unit Number [id number] [facility] Unit Number [id number] [facility] Unit Number [id number] [facility] Unit Number [id number] [facility] Unit Number [id number] [facility] Unit Number [id number] [facility] PT/INRon 01-24-2019 INR Coag (PPP) [Relative time] 1.0 {INR} [facility] Interpretation and review of laboratory results Normal [facility] PT Coag (PPP) [Time] 13.3 s [facility] During the induction phase of oral anticoagulation, the INR may not reflect the anticoagulation status of the patient. Therapeutic ranges for INR's are: Most clinical situations: INR 2.0-3.0 Mechanical Prosthetic Valve: INR 2.5-3.5 Critical: INR >5.0 [facility] INR Coag (PPP) [Relative time] 1.1 {INR} [facility] PT Coag (PPP) [Time] 13.5 s [facility] During the induction phase of oral anticoagulation, the INR may not reflect the anticoagulation status of the patient. Therapeutic ranges for INR's are: Most clinical situations: INR 2.0-3.0 Mechanical Prosthetic Valve: INR 2.5-3.5 Critical: INR >5.0 [facility] INR Coag (PPP) [Relative time] 1.1 {INR} [facility] PT Coag (PPP) [Time] 13.4 s [facility] During the induction phase of oral anticoagulation, the INR may not reflect the anticoagulation status of the patient. Therapeutic ranges for INR's are: Most clinical situations: INR 2.0-3.0 Mechanical Prosthetic Valve: INR 2.5-3.5 Critical: INR >5.0 [facility] Type and Screenon 01-24-2019 ABO and Rh group Nom (Bld) O Negative [facility] Blood group antibody screen Ql Negative [facility] Specimen Expires 01/27/2019 23:59 EST [facility] XR Chest 1 Viewon 01-24-2019 1. No acute cardiopulmonary disease. 2. Normal heart size with evidence of prior coronary arterial stenting. 3. No acute osseous abnormality. [employer] Workstation ID: [id number] [facility] Interface, Rad In Fu ji Speechq - 01/24/2019 5:04 PM EST EXAMINATION: 1 VIEW XR CHEST PA/AP, 01/24/2019 COMPARISON: Chest, 01/21/2019. HISTORY: Dx: R07.89 (Chest pain, atypical) Injury/Trauma or Illness?:Illness/Other How long have you had these symptoms (acute/chronic)?:Unknown pre-op IMPRESSION: 1. No acute cardiopulmonary disease. 2. Normal heart size with evidence of prior coronary arterial stenting. 3. No acute osseous abnormality. [employer] Workstation ID: [id number] [facility] EXAMINATION: 1 VIEW XR CHEST PA/AP, 01/24/2019 COMPARISON: Chest, 01/21/2019. HISTORY: Dx: R07.89 (Chest pain, atypical) Injury/Trauma or Illness?:Illness/Other How long have you had these symptoms (acute/chronic)?:Unknown pre-op [facility] 1. There is a right mainstem intubation that has been appropriately retracted on follow-up chest radiograph performed just following this exam. 2. Nasogastric tube is seen descending into the stomach although the tip is not included for visualization. Central mediastinal or left chest tube is in place. 3. Right internal jugular Kenney-Isaiah line in place with tip in the main pulmonary artery. 4. Lung volumes are slightly diminished with some crowding of bronchopulmonary vasculature. Some discoid atelectasis in the left upper lobe suspected. 5. Stable heart size with evidence of coronary arterial stenting in CABG. [employer] Workstation ID: [id number] [facility] Interface, Rad In [place] yi [...] is in place. 3. Right internal jugular Kenney-Isaiah line in place with tip in the main pulmonary artery. 4. Lung volumes are slightly diminished with some crowding of bronchopulmonary vasculature. Some discoid atelectasis in the left upper lobe suspected. 5. Stable heart size with evidence of coronary arterial stenting in CABG. [employer] Workstation ID: [id number] [facility] EXAMINATION: 1-VIEW XR CHEST PA/AP 01/24/2019 AT 10:13 AM COMPARISON: Chest radiograph performed later in the day at 10:20 a.m. HISTORY: Dx: R07.89 (Chest pain, atypical). Injury/Trauma or Illness?: Illness/Other. How long have you had these symptoms (acute/chronic)?: Unknown. ET tube placement. [facility] EXAMINATION: 1 VIEW XR CHEST PA/AP, 01/24/2019 AT 10:20 A.M. COMPARISON: Chest radiograph performed earlier the same day at 10:13 a.m. HISTORY: Dx: R07.89 (Chest pain, atypical) Injury/Trauma or Illness?:Illness/Other How long have you had these symptoms (acute/chronic)?:Unknown reposition OG [facility] 1. Endotracheal tube has been retracted and is probably located at the level of thoracic inlet. 2. Orogastric tube is again seen extending into the stomach although the tip is not included for visualization. Central mediastinal or left chest tube and right internal jugular Kenney-Isaiah line remain in stable position. 3. Lung volumes is slightly diminished with some discoid atelectasis slightly progressed in the left lung apex since the prior exam. No pneumothorax. 4. Stable heart size with evidence of coronary arterial stenting and new CABG. [employer] Workstation ID: [id number] [facility] Interface, Rad In [place] yi [...] left chest tube and right internal jugular Kenney-Isaiah line remain in stable position. 3. Lung volumes is slightly diminished with some discoid atelectasis slightly progressed in the left lung apex since the prior exam. No pneumothorax. 4. Stable heart size with evidence of coronary arterial stenting and new CABG. [employer] Workstation ID: [id number] [facility] APTTon 01-23-2019 aPTT Coag (Bld) [Time] 79 s High [facility] Interpretation and review of laboratory results Abnormal [facility] Therapeutic range fo r APTT's is 68 - 104 seconds [facility] Basic Metabolic Panelon 01-12 Anion gap [Moles/Vol] 11 mmol/L 10 - 2 0 mmol/L [facility] Calcium [Mass/Vol] 9.3 mg/dL 8.4 - 10. 2 mg/dL [facility] Chloride [Moles/Vol] 99 mmol/L 98 - 10 8 mmol/L [facility] Creatinine [Mass/Vol] 1.22 mg/dL 0.5 - 1.3 mg/dL [facility] GFR/1.73 sq M.predicted CKD-EPI (S/P/Bld) [Vol rate/Area] 70 >=60 mL/min/1.7 3 m2 [facility] Glucose [Mass/Vol] 124 mg/dL High 65 - 99 mg/dL [facility] HCO3 [Moles/Vol] 27 mmol/L 21 - 32 mmol/L [facility] Interpretation and review of laboratory results Abnormal [facility] Potassium [Moles/Vol] 4.0 mmol/L 3.5 - 5.1 mmol/L [facility] Sodium [Moles/Vol] 133 mmol/L Low 135 - 145 mmol/L [facility] Urea nitrogen [Mass/Vol] 25 mg/dL 8 - 25 mg/dL [facility] Urea nitrogen/Creatinine [Mass ratio] 20.5 mg/mg High [facility] The eGFR should be u sed for monitoring renal function only and not for medication dosing. [facility] CBC WITH AUTO DIFFERENTIALon 01-23-2019 Basophils (Bld) [#/Vol] 0.08 10*3/uL [facility] Basophils/100 WBC (Bld) 0.7 % [facility] Eosinophils (Bld) [#/Vol] 0.80 10*3/uL High [facility] Eosinophils/100 WBC (Bld) 6.6 % [facility] Erythrocyte distribution width (RBC) [Entitic vol] 14.1 % 11.6 - 14.8 % [facility] Hematocrit (Bld) [Volume fraction] 42.4 % 41 - 53 % [facility] Hemoglobin (Bld) [Mass/Vol] 14.3 g/dL 13.5 - 17.5 g/dL [facility] Immature granulocytes (Bld) [#/Vol] 0.16 10*3/uL [facility] Immature granulocytes/100 WBC (Bld) 1.30 % [facility] Comment on above: The IG parameter is the percentage of metamyelocytes, myelocytes, and promyelocytes. Interpretation and review of laboratory results Abnormal [facility] Lymphocytes (Bld) [#/Vol] 3.27 10*3/uL [facility] Lymphocytes/100 WBC (Bld) 26.9 % [facility] MCH (RBC) [Entitic mass] 28.4 pg 26 - 34 pg [facility] MCHC (RBC) [Mass/Vol] 33.7 g/dL 31 - 3 7 g/dL [facility] MCV (RBC) [Entitic vol] 84.1 fL 80 - 100 fL [facility] Monocytes (Bld) [#/Vol] 1.03 10*3/uL High [facility] Monocytes/100 WBC (Bld) 8.5 % [facility] Neutrophils (Bld) [#/Vol] 6.83 10*3/uL [facility] Neutrophils/100 WBC (Bld) 56.0 % [facility] Nucleated RBC (Bld) [#/Vol] 0.00 10*3/uL [facility] Nucleated RBC/100 WBC (Bld) [Ratio] 0.0 % [facility] Platelet mean volume (Bld) [Entitic vol] 10.3 fL 9 - 15.5 fL [facility] Platelets (Bld) [#/Vol] 239 10*3/uL [facility] RBC (Bld) [#/Vol] 5.04 10*6/uL [facility] WBC (Bld) [#/Vol] 12.17 10*3/uL [facility] Complete PFT Dr. Javi high 01-23-2019 DLCO %Pre Predicted 71 % [facility] DLCO Pre 21.5 mL/mmHg/mi n [facility] DLCO Predicted 30.1 mL/mmHg/mi n [facility] DLCO/VA %Pre Predicted 103 % [facility] DLCO/VA Pre 4.09 mL/mmHg/mi n/L [facility] DLCO/VA Predicted 3.97 mL/mmHg/mi n/L [facility] ERV Pre 0.71 Liters [facility] FEV1 %Change 3 % [facility] FEV1 %Post Predicted 81 % [facility] FEV1 %Pre Predicted 79 % [facility] FEV1 Post 2.88 Liters [facility] FEV1 Pre 2.80 Liters [facility] FEV1 Predicted 3.54 Liters [facility] FEV1/FVC %Change 3 % [facility] FEV1/FVC %Post Predicted 90 % [facility] FEV1/FVC %Pre Predicted 87 % [facility] FEV1/FVC Post 70 % [facility] FEV1/FVC Pre 68 % [facility] FEV1/FVC Predicted 78 % [facility] FRC PL %Pre Predicted 125 % [facility] FRC PL Pre 3.11 Liters [facility] FRC PL Predicted 2.49 Liters [facility] FVC %Change 0 % [facility] FVC %Post Predicted 91 % [facility] FVC %Pre Predicted 91 % [facility] FVC Post 4.11 Liters [facility] FVC Pre 4.10 Liters [facility] FVC Predicted 4.50 Liters [facility] RV %Pre Predicted 128 % [facility] lt RV Pre 2.41 Liters [facility] RV Predicted 1.88 Liters [facility] TLC %Pre Predicted 112 % [facility] TLC Pre 6.58 Liters [facility] TLC Predicted 5.90 Liters [facility] VC %Pre Predicted 93 % [facility] VC Pre 4.17 Liters [facility] VC Predicted 4.50 Liters [facility] INTERPRETATION: ATS Guidelines met. Good patient effort. Spirometry shows borderline/very mild obstruction that appears fixed. Lung volumes are normal. Diffusion capacity uncorrected for hemoglobin is mildly reduced, but does correct when alveolar volumes accounted for. Early/very mild COPD. [facility] POC Glucoseon 01-23-2019 Glucose [Mass/Vol] 163 mg/dL High 65 - 99 mg/dL [facility] Interpretation and review of laboratory results Abnormal [facility] Glucose [Mass/Vol] 110 mg/dL High 65 - 99 mg/dL [facility] Interpretation and review of laboratory results Abnormal [facility] Glucose [Mass/Vol] 106 mg/dL High 65 - 99 mg/dL [facility] Interpretation and review of laboratory results Abnormal [facility] Upper Respiratory Aerobic Cu ltureon 01-23-2019 Bacteria identified Aer cx Nom (Nose) Light Growth Staphylococcus aureus Abnormal [facility] Comment on above: This Staphylococcus aureus is Methicillin SUSCEPTIBLE by PBP2a testing. Beta-lactams like Cefazolin and Nafcillin are superior to Vancomycin for treating mSsa. Interpretation and review of laboratory results Abnormal [facility] Urine Aerobic Cultureon 01-12 Bacteria identified Aer cx Nom (Unsp spec) 10,000-49,000 CFU/mL Staphylococcus aureus Abnormal [facility] Interpretation and review of laboratory results Abnormal [facility] APTTon 01-22-2019 aPTT Coag (Bld) [Time] 70 s [facility] Therapeutic range fo r APTT's is 68 - 104 seconds [facility] aPTT Coag (Bld) [Time] 58 s [facility] Interpretation and review of laboratory results Abnormal [facility] Therapeutic range fo r APTT's is 68 - 104 seconds [facility] aPTT Coag (Bld) [Time] 44 s [facility] Interpretation and review of laboratory results Abnormal [facility] Therapeutic range fo r APTT's is 68 - 104 seconds [facility] Basic Metabolic Panelon 01-12 Anion gap [Moles/Vol] 12 mmol/L 10 - 2 0 mmol/L [facility] Calcium [Mass/Vol] 8.9 mg/dL 8.4 - 10. 2 mg/dL [facility] Chloride [Moles/Vol] 102 mmol/L 98 - 10 8 mmol/L [facility] Creatinine [Mass/Vol] 1.23 mg/dL 0.5 - 1.3 mg/dL [facility] GFR/1.73 sq M.predicted CKD-EPI (S/P/Bld) [Vol rate/Area] 69 >=60 mL/min/1.7 3 m2 [facility] Glucose [Mass/Vol] 125 mg/dL High 65 - 99 mg/dL [facility] HCO3 [Moles/Vol] 25 mmol/L 21 - 32 mmol/L [facility] Interpretation and review of laboratory results Abnormal [facility] Potassium [Moles/Vol] 3.9 mmol/L 3.5 - 5.1 mmol/L [facility] Sodium [Moles/Vol] 135 mmol/L 135 - 145 mmol/L [facility] Urea nitrogen [Mass/Vol] 26 mg/dL High 8 - 25 mg/dL [facility] Urea nitrogen/Creatinine [Mass ratio] 21.1 mg/mg High [facility] The eGFR should be u sed for monitoring renal function only and not for medication dosing. [facility] CBC WITH AUTO DIFFERENTIALon 01-22-2019 Basophils (Bld) [#/Vol] 0.08 10*3/uL [facility] Basophils/100 WBC (Bld) 0.7 % [facility] Eosinophils (Bld) [#/Vol] 0.74 10*3/uL High [facility] Eosinophils/100 WBC (Bld) 6.5 % [facility] Erythrocyte distribution width (RBC) [Entitic vol] 14.0 % 11.6 - 14.8 % [facility] Hematocrit (Bld) [Volume fraction] 41.8 % 41 - 53 % [facility] Hemoglobin (Bld) [Mass/Vol] 13.5 g/dL 13.5 - 17.5 g/dL [facility] Immature granulocytes (Bld) [#/Vol] 0.15 10*3/uL [facility] Immature granulocytes/100 WBC (Bld) 1.30 % [facility] Comment on above: The IG parameter is the percentage of metamyelocytes, myelocytes, and promyelocytes. Interpretation and review of laboratory results Abnormal [facility] Lymphocytes (Bld) [#/Vol] 3.52 10*3/uL [facility] Lymphocytes/100 WBC (Bld) 30.9 % [facility] MCH (RBC) [Entitic mass] 27.4 pg 26 - 34 pg [facility] MCHC (RBC) [Mass/Vol] 32.3 g/dL 31 - 3 7 g/dL [facility] MCV (RBC) [Entitic vol] 85.0 fL 80 - 100 fL [facility] Monocytes (Bld) [#/Vol] 0.93 10*3/uL [facility] Monocytes/100 WBC (Bld) 8.2 % [facility] Neutrophils (Bld) [#/Vol] 5.96 10*3/uL [facility] Neutrophils/100 WBC (Bld) 52.4 % [facility] Nucleated RBC (Bld) [#/Vol] 0.00 10*3/uL [facility] Nucleated RBC/100 WBC (Bld) [Ratio] 0.0 % [facility] Platelet mean volume (Bld) [Entitic vol] 10.0 fL 9 - 15.5 fL [facility] Platelets (Bld) [#/Vol] 237 10*3/uL [facility] RBC (Bld) [#/Vol] 4.92 10*6/uL [facility] WBC (Bld) [#/Vol] 11.38 10*3/uL [facility] DRUGS OF ABUSE SCREEN, URINE on 01-22-2019 Amphetamines Ql (U) None Detected None Detected [facility] Comment on above: Urine Amphetamine Cu toff: < 1000 ng/mL = None Detected Barbiturates Screen Ql (U) None Detected None Detected [facility] Comment on above: Urine Barbiturates C utoff: < 200 ng/mL = None Detected Benzodiazepines Ql (U) None Detected None Detected [facility] Comment on above: Urine Benzodiazepine Cutoff: < 200 ng/mL = None Detected Cannabinoids Screen Ql (U) None Detected None Detected [facility] Comment on above: Urine Cannabinoids C utoff: < 50 ng/mL = None Detected Cocaine Ql (U) None Detected None Detected [facility] Comment on above: Urine Cocaine Cutoff : < 300 ng/mL = None Detected Interpretation and review of laboratory results Normal [facility] Methadone Screen Ql (U) None Detected Non e Detected [facility] Comment on above: Urine Methadone Cuto ff: < 300 ng/mL = None Detected Opiates Screen Ql (U) None Detected None Detected [facility] Comment on above: Urine Opiates Cutoff : < 300 ng/mL = None Detected Oxycodone Ql (U) None Detected None Detected [facility] Comment on above: Urine Oxycodone Cuto ff: < 100 ng/mL = None Detected Screen results shoul d be used for treatment purposes only. [facility] Otheron 01-22-2019 Interpretation and review of laboratory results Abnormal [facility] POC Glucoseon 01-22-2019 Glucose [Mass/Vol] 142 mg/dL High 65 - 99 mg/dL [facility] Interpretation and review of laboratory results Abnormal [facility] Glucose [Mass/Vol] 107 mg/dL High 65 - 99 mg/dL [facility] Glucose [Mass/Vol] 116 mg/dL High 65 - 99 mg/dL [facility] Interpretation and review of laboratory results Abnormal [facility] URINALYSISon 01-22-2019 Bacteria Auto Ql (U) None Seen None Se en /hpf [facility] Bilirubin Ql (U) Negative Negative [facility] th Clarity Refractometry automated (U) Clear Clear [facility] Color (U) Colorless Colorless, Yellow [facility] Glucose Auto test strip (U) [Mass/Vol] Negative Negative mg/dL [facility] Hemoglobin Auto test strip Ql (U) Negative Negative [facility] Interpretation and review of laboratory results Normal [facility] Ketones (U) [Mass/Vol] Negative Negat bryan mg/dL [facility] Leukocyte esterase Auto test strip Ql (U) Negative Negative [facility] Nitrite Auto test strip Ql (U) Negative Negative [facility] pH (U) 6.0 [pH] [facility] Protein (U) [Mass/Vol] Negative Negat bryan mg/dL [facility] RBC Auto (Urine sed) [#/Area] <1 [facility] Specific gravity (U) [Rel density] 1.008 [facility] Urobilinogen (U) [Mass/Vol] <2.0 <2.0 mg/dL [facility] WBC Auto (Urine sed) [#/Area] <1 [facility] Microscopic examinat ion is performed on all urinalysis samples and only positive findings are reported. The test for blood on the chemical analytic portion of urinalysis may also be positive due to hemoglobinuria and myoglobinuria and if red blood cells are present they are quantified by microscopic examination. [facility] APTTon 01-21-2019 aPTT Coag (Bld) [Time] 30 s [facility] Interpretation and review of laboratory results Normal [facility] Therapeutic range fo r APTT's is 68 - 104 seconds [facility] Basic Metabolic Panelon 01-12 Anion gap [Moles/Vol] 11 mmol/L 10 - 2 0 mmol/L [facility] Calcium [Mass/Vol] 9.1 mg/dL 8.4 - 10. 2 mg/dL [facility] Chloride [Moles/Vol] 102 mmol/L 98 - 10 8 mmol/L [facility] Creatinine [Mass/Vol] 1.11 mg/dL 0.5 - 1.3 mg/dL [facility] GFR/1.73 sq M.predicted CKD-EPI (S/P/Bld) [Vol rate/Area] 79 >=60 mL/min/1.7 3 m2 [facility] Glucose [Mass/Vol] 116 mg/dL High 65 - 99 mg/dL [facility] HCO3 [Moles/Vol] 26 mmol/L 21 - 32 mmol/L [facility] Interpretation and review of laboratory results Abnormal [facility] Potassium [Moles/Vol] 4.0 mmol/L 3.5 - 5.1 mmol/L [facility] Sodium [Moles/Vol] 135 mmol/L 135 - 145 mmol/L [facility] Urea nitrogen [Mass/Vol] 22 mg/dL 8 - 25 mg/dL [facility] Urea nitrogen/Creatinine [Mass ratio] 19.8 mg/mg [facility] The eGFR should be u sed for monitoring renal function only and not for medication dosing. [facility] CBC WITH AUTO DIFFERENTIALon 01-21-2019 Basophils (Bld) [#/Vol] 0.07 10*3/uL [facility] Basophils/100 WBC (Bld) 0.6 % [facility] Eosinophils (Bld) [#/Vol] 0.69 10*3/uL High [facility] Eosinophils/100 WBC (Bld) 6.1 % [facility] Erythrocyte distribution width (RBC) [Entitic vol] 14.0 % 11.6 - 14.8 % [facility] Hematocrit (Bld) [Volume fraction] 43.6 % 41 - 53 % [facility] Hemoglobin (Bld) [Mass/Vol] 14.2 g/dL 13.5 - 17.5 g/dL [facility] Immature granulocytes (Bld) [#/Vol] 0.14 10*3/uL [facility] Immature granulocytes/100 WBC (Bld) 1.20 % [facility] Comment on above: The IG parameter is the percentage of metamyelocytes, myelocytes, and promyelocytes. Interpretation and review of laboratory results Abnormal [facility] Lymphocytes (Bld) [#/Vol] 2.23 10*3/uL [facility] Lymphocytes/100 WBC (Bld) 19.8 % [facility] MCH (RBC) [Entitic mass] 27.6 pg 26 - 34 pg [facility] MCHC (RBC) [Mass/Vol] 32.6 g/dL 31 - 3 7 g/dL [facility] MCV (RBC) [Entitic vol] 84.7 fL 80 - 100 fL [facility] Monocytes (Bld) [#/Vol] 0.98 10*3/uL [facility] Monocytes/100 WBC (Bld) 8.7 % [facility] Neutrophils (Bld) [#/Vol] 7.17 10*3/uL [facility] Neutrophils/100 WBC (Bld) 63.6 % [facility] Nucleated RBC (Bld) [#/Vol] 0.00 10*3/uL [facility] Nucleated RBC/100 WBC (Bld) [Ratio] 0.0 % [facility] Platelet mean volume (Bld) [Entitic vol] 9.9 fL 9 - 15.5 fL [facility] Platelets (Bld) [#/Vol] 267 10*3/uL [facility] RBC (Bld) [#/Vol] 5.15 10*6/uL [facility] WBC (Bld) [#/Vol] 11.28 10*3/uL [facility] ECHOCARDIOGRAM 2D COMPLETEon 01-21-[address] [address] [place] [address] ----- ECHOCARDIOGRAPHY REPORT - [facility] ----- Name: FERNANDO Priyanka HELTON Age: 48 years Date: 01/21/2019 [facility] #: [id number] : 1970 Room: [facility] Rec #: [id number] Sex: M Tech: Emma Tsai Ordering Physician: [id number] KRISTIN ABRAHAM TITLEY Height: 67.00 Sys BP: 119 in cc: , Weight: 257.00 Mira BP: 78 Reading Physician: [id number] Durán/ Rhythm: Sinus Electronically Signed by: [id number] Durán BSA: 2.25 m on: 01/21/2019 Reason [...] LA Index (BP) 17.6 ml/m TAPSE LAESV QUARTER SEAMER NOTES: Definity (if used): 3ml Final [facility] Keith Robin In [facility] - 01/21/2019 3:[address] [address] [place] [address] ----- ECHOCARDIOGRAPHY REPORT - [facility] ----- Name: FERNANDO HELTON Age: 48 years Date: 01/21/2019 Hospital #: [id number] : 1970 Room: [facility] Rec #: [id number] Sex: M Tech: Emma Tsai Ordering Physician: [id number] KRISTIN ABRAHAM TITLEY Height: 67.00 Sys BP: 119 in cc: , Weight: 257.00 Mira BP: 78 Reading Physician: [id number] Magda Durán/ Rhythm: Sinus Electronically Signed by: [id number] Magda Durán BSA: 2.25 m on: 01/21/2019 [...] LA Index (BP) 17.6 ml/m TAPSE LAESV QUARTER SEAMER NOTES: Definity (if used): 3ml Final IMPRESSION: 1. Mildly dilated left ventricle with basal septal wall hypertrophy measuring 1.5 cm in maximal thickness. Mild segmental left ventricular systolic dysfunction with estimated LVEF 45-50%. Wall motion abnormalities as outlined below. [facility] 1. Mildly dilated le ft ventricle with basal septal wall hypertrophy measuring 1.5 cm in maximal thickness. Mild segmental left ventricular systolic dysfunction with estimated LVEF 45-50%. Wall motion abnormalities as outlined below. [facility] POC Glucoseon 01-21-2019 Glucose [Mass/Vol] 147 mg/dL High 65 - 99 mg/dL [facility] Interpretation and review of laboratory results Abnormal [facility] Glucose [Mass/Vol] 176 mg/dL High 65 - 99 mg/dL [facility] Interpretation and review of laboratory results Abnormal [facility] Glucose [Mass/Vol] 119 mg/dL High 65 - 99 mg/dL [facility] Interpretation and review of laboratory results Abnormal [facility] XR CHEST AP/PA AND LATon Interface, [...] No acute cardiopulmonary disease. Workstation ID: [id number] [facility] EXAMINATION: XR CHES T AP/PA AND [...] focal airspace consolidation, or pulmonary vascular congestion. [facility] No acute cardiopulmo nary disease. Workstation ID: [id number] [facility] ABORH VERIFICATIONon 019 ABO and Rh group Nom (Bld) ABO/Rh Verification [facility] ABO and Rh group Nom (Bld) O Negative [facility] Patient's ABO/Rh is verified. [facility] AMYLASEon 01-20-2019 Amylase [Catalytic activity/Vol] 38 U/L 25 - 115 U/L [facility] APTTon 01-20-2019 aPTT Coag (Bld) [Time] 61 s High [facility] Interpretation and review of laboratory results Abnormal [facility] Therapeutic range fo r APTT's is 68 - 104 seconds [facility] Basic Metabolic Panelon Anion gap [Moles/Vol] 12 mmol/L 10 - 2 0 mmol/L [facility] Calcium [Mass/Vol] 8.3 mg/dL Low 8.4 - 10. 2 mg/dL [facility] Chloride [Moles/Vol] 106 mmol/L 98 - 10 8 mmol/L [facility] Creatinine [Mass/Vol] 1.17 mg/dL 0.5 - 1.3 mg/dL [facility] GFR/1.73 sq M.predicted CKD-EPI (S/P/Bld) [Vol rate/Area] 74 >=60 mL/min/1.7 3 m2 [facility] Glucose [Mass/Vol] 134 mg/dL High 65 - 99 mg/dL [facility] HCO3 [Moles/Vol] 24 mmol/L 21 - 32 mmol/L [facility] Interpretation and review of laboratory results Abnormal [facility] Potassium [Moles/Vol] 3.9 mmol/L 3.5 - 5.1 mmol/L [facility] Sodium [Moles/Vol] 138 mmol/L 135 - 145 mmol/L [facility] Urea nitrogen [Mass/Vol] 19 mg/dL 8 - 25 mg/dL [facility] Urea nitrogen/Creatinine [Mass ratio] 16.2 mg/mg [facility] The eGFR should be u sed for monitoring renal function only and not for medication dosing. [facility] CARDIAC CATHETERIZATIONon Cardiac Catheterizat ion Operative [...] the chart. Patient was brought to [facility] and prepped and draped in usual sterile [...] using a modified Seldinger technique. A 5 [place] sheath was placed. JL4 and JR4 catheter [...] None; patient tolerated the procedure well. Disposition: [facility] Bed Condition: stable Electronically Signed by: Carlo Mercedes M.D 01/20/19 9:09 AM [facility] CBC WITH AUTO DIFFERENTIALon 01-20-2019 Basophils (Bld) [#/Vol] 0.08 10*3/uL [facility] Basophils/100 WBC (Bld) 0.6 % [facility] Eosinophils (Bld) [#/Vol] 0.76 10*3/uL High [facility] Eosinophils/100 WBC (Bld) 5.7 % [facility] Erythrocyte distribution width (RBC) [Entitic vol] 14.2 % 11.6 - 14.8 % [facility] Hematocrit (Bld) [Volume fraction] 41.2 % 41 - 53 % [facility] Hemoglobin (Bld) [Mass/Vol] 13.6 g/dL 13.5 - 17.5 g/dL [facility] Immature granulocytes (Bld) [#/Vol] 0.10 10*3/uL [facility] Immature granulocytes/100 WBC (Bld) 0.70 % [facility] Comment on above: The IG parameter is the percentage of metamyelocytes, myelocytes, and promyelocytes. Interpretation and review of laboratory results Abnormal [facility] Lymphocytes (Bld) [#/Vol] 3.59 10*3/uL [facility] Lymphocytes/100 WBC (Bld) 26.7 % [facility] MCH (RBC) [Entitic mass] 28.2 pg 26 - 34 pg [facility] MCHC (RBC) [Mass/Vol] 33.0 g/dL 31 - 3 7 g/dL [facility] MCV (RBC) [Entitic vol] 85.3 fL 80 - 100 fL [facility] Monocytes (Bld) [#/Vol] 1.01 10*3/uL [facility] Monocytes/100 WBC (Bld) 7.5 % [facility] Neutrophils (Bld) [#/Vol] 7.90 10*3/uL High [facility] Neutrophils/100 WBC (Bld) 58.8 % [facility] Nucleated RBC (Bld) [#/Vol] 0.00 10*3/uL [facility] Nucleated RBC/100 WBC (Bld) [Ratio] 0.0 % [facility] Platelet mean volume (Bld) [Entitic vol] 10.1 fL 9 - 15.5 fL [facility] Platelets (Bld) [#/Vol] 259 10*3/uL [facility] RBC (Bld) [#/Vol] 4.83 10*6/uL [facility] ealth WBC (Bld) [#/Vol] 13.44 10*3/uL [facility] EKGon 01-20-2019 Ordered by an unspec ified provider. [facility] Hemoglobin A1con 01-20-2019 Average glucose Estimated from glycated hemoglobin mass conc (Bld) 140 mg/dL High 68 - 114 mg/dL [facility] HbA1c (Bld) [Mass fraction] 6.5 % High 4 - 5.6 % [facility] Interpretation and review of laboratory results Abnormal [facility] Normal: 4.0% - 5.6% Increased risk for diabetes: 5.7% - 6.4% Diabetes: >= 6.5% Pediatrics: No established reference range Estimated average glucose: 68-114 mg/dL [facility] Hepatic Function Panelon Albumin [Mass/Vol] 3.1 g/dL Low 3.2 - 5.2 g/dL [facility] ALP [Catalytic activity/Vol] 68 U/L 40 - 150 U/L [facility] ALT [Catalytic activity/Vol] 79 U/L High 14 - 65 U/L [facility] AST [Catalytic activity/Vol] 42 U/L 0 - 45 U/L [facility] Bilirubin [Mass/Vol] 0.7 mg/dL 0 - 1.3 mg/dL [facility] Bilirubin.conjugated [Mass/Vol] 0.1 mg/dL 0 - 0.4 mg/dL [facility] Protein [Mass/Vol] 6.3 g/dL 6 - 8 g/dL [facility] al[facility] Otheron 01-20-2019 Interpretation and review of laboratory results Normal [facility] Interpretation and review of laboratory results Abnormal [facility] POC ARTERIAL BLOOD GAS PANEL -PULM - RALSon 01-20-2019 Alveolar-arterial oxygen Partial pressure difference 24.0 mm Hg [facility] Base excess Calc (Bld) [Moles/Vol] 0.6 mmol/L [facility] Breath rate setting Ventilator synchronized intermittent mandatory 0 [facility] h CO2 (Bld) [Partial pressure] 41.3 mm[Hg] [facility] HCO3 (Bld) [Moles/Vol] 25.5 mmol/L 22 - 26 mmol/L [facility] Hematocrit (BldA) [Volume fraction] 43.1 % 41 - 53 % [facility] Hemoglobin (Bld) [Mass/Vol] 14.1 g/dL 13.5 - 18 g/dL [facility] Inhaled oxygen concentration 21 % [facility] Interpretation and review of laboratory results Abnormal [facility] Oxygen (Bld) [Partial pressure] 70 mm[Hg] Low [facility] pH (Bld) 7.40 [pH] [facility] SaO2% (BldA) [Mass fraction] 94.5 % 92 - 99 % [facility] Specimen source Nom (Unsp spec) Radial, left [facility] Tidal volume setting Ventilator 0 [facility] PT/INRon 01-20-2019 INR Coag (PPP) [Relative time] 1.0 {INR} [facility] Interpretation and review of laboratory results Normal [facility] PT Coag (PPP) [Time] 12.7 s [facility] During the induction phase of oral anticoagulation, the INR may not reflect the anticoagulation status of the patient. Therapeutic ranges for INR's are: Most clinical situations: INR 2.0-3.0 Mechanical Prosthetic Valve: INR 2.5-3.5 Critical: INR >5.0 [facility] Prealbuminon 01-20-2019 Prealbumin [Mass/Vol] 19.7 mg/dL Low 20 - 4 0 mg/dL [facility] T4, Freeon 01-20-2019 Free T4 [Mass/Vol] 1.0 ng/dL 0.7 - 1.7 ng/dL [facility] TSHon 01-20-2019 TSH Qn 1.15 m[IU]/L [facility] Type and Screenon 01-20-2019 ABO and Rh group Nom (Bld) O Negative [facility] Blood group antibody screen Ql Negative [facility] Specimen Expires 01/23/2019 23:59 EST [facility] APTTon 01-19-2019 aPTT Coag (Bld) [Time] 79 s High [facility] Interpretation and review of laboratory results Abnormal [facility] Therapeutic range fo r APTT's is 68 - 104 seconds [facility] aPTT Coag (Bld) [Time] 85 s High [facility] Interpretation and review of laboratory results Abnormal [facility] Therapeutic range fo r APTT's is 68 - 104 seconds [facility] aPTT Coag (Bld) [Time] 89 s High [facility] Interpretation and review of laboratory results Abnormal [facility] Therapeutic range fo r APTT's is 68 - 104 seconds [facility] Basic Metabolic Panelon Anion gap [Moles/Vol] 11 mmol/L 10 - 2 0 mmol/L [facility] Calcium [Mass/Vol] 8.6 mg/dL 8.4 - 10. 2 mg/dL [facility] Chloride [Moles/Vol] 108 mmol/L 98 - 10 8 mmol/L [facility] Creatinine [Mass/Vol] 1.15 mg/dL 0.5 - 1.3 mg/dL [facility] GFR/1.73 sq M.predicted CKD-EPI (S/P/Bld) [Vol rate/Area] 75 >=60 mL/min/1.7 3 m2 [facility] Glucose [Mass/Vol] 121 mg/dL High 65 - 99 mg/dL [facility] HCO3 [Moles/Vol] 25 mmol/L 21 - 32 mmol/L [facility] Interpretation and review of laboratory results Abnormal [facility] Potassium [Moles/Vol] 4.0 mmol/L 3.5 - 5.1 mmol/L [facility] Sodium [Moles/Vol] 140 mmol/L 135 - 145 mmol/L [facility] Urea nitrogen [Mass/Vol] 19 mg/dL 8 - 25 mg/dL [facility] Urea nitrogen/Creatinine [Mass ratio] 16.5 mg/mg [facility] The eGFR should be u sed for monitoring renal function only and not for medication dosing. [facility] CBCon 01-19-2019 Erythrocyte distribution width (RBC) [Entitic vol] 14.1 % 11.6 - 14.8 % [facility] Hematocrit (Bld) [Volume fraction] 41.6 % 41 - 53 % [facility] Hemoglobin (Bld) [Mass/Vol] 13.8 g/dL 13.5 - 17.5 g/dL [facility] Interpretation and review of laboratory results Abnormal [facility] MCH (RBC) [Entitic mass] 28.1 pg 26 - 34 pg [facility] MCHC (RBC) [Mass/Vol] 33.2 g/dL 31 - 3 7 g/dL [facility] MCV (RBC) [Entitic vol] 84.7 fL 80 - 100 fL [facility] Nucleated RBC (Bld) [#/Vol] 0.00 10*3/uL [facility] Nucleated RBC/100 WBC (Bld) [Ratio] 0.0 % [facility] Platelet mean volume (Bld) [Entitic vol] 10.0 fL 9 - 15.5 fL [facility] Platelets (Bld) [#/Vol] 258 10*3/uL [facility] RBC (Bld) [#/Vol] 4.91 10*6/uL [facility] ealth WBC (Bld) [#/Vol] 14.77 10*3/uL [facility] CBC WITH AUTO DIFFERENTIALon 01-19-2019 Basophils (Bld) [#/Vol] 0.08 10*3/uL [facility] Basophils/100 WBC (Bld) 0.6 % [facility] Eosinophils (Bld) [#/Vol] 0.74 10*3/uL High [facility] Eosinophils/100 WBC (Bld) 5.6 % [facility] Erythrocyte distribution width (RBC) [Entitic vol] 14.3 % 11.6 - 14.8 % [facility] Hematocrit (Bld) [Volume fraction] 41.6 % 41 - 53 % [facility] Hemoglobin (Bld) [Mass/Vol] 13.7 g/dL 13.5 - 17.5 g/dL [facility] Immature granulocytes (Bld) [#/Vol] 0.10 10*3/uL [facility] Immature granulocytes/100 WBC (Bld) 0.80 % [facility] Comment on above: The IG parameter is the percentage of metamyelocytes, myelocytes, and promyelocytes. Interpretation and review of laboratory results Abnormal [facility] Lymphocytes (Bld) [#/Vol] 3.57 10*3/uL [facility] Lymphocytes/100 WBC (Bld) 27.0 % [facility] MCH (RBC) [Entitic mass] 28.3 pg 26 - 34 pg [facility] MCHC (RBC) [Mass/Vol] 32.9 g/dL 31 - 3 7 g/dL [facility] MCV (RBC) [Entitic vol] 86.0 fL 80 - 100 fL [facility] Monocytes (Bld) [#/Vol] 0.92 10*3/uL [facility] Monocytes/100 WBC (Bld) 7.0 % [facility] Neutrophils (Bld) [#/Vol] 7.81 10*3/uL [facility] Neutrophils/100 WBC (Bld) 59.0 % [facility] Nucleated RBC (Bld) [#/Vol] 0.00 10*3/uL [facility] Nucleated RBC/100 WBC (Bld) [Ratio] 0.0 % [facility] Platelet mean volume (Bld) [Entitic vol] 10.1 fL 9 - 15.5 fL [facility] Platelets (Bld) [#/Vol] 256 10*3/uL [facility] RBC (Bld) [#/Vol] 4.84 10*6/uL [facility]alth WBC (Bld) [#/Vol] 13.22 10*3/uL [facility] APTTon 01-18-2019 aPTT Coag (Bld) [Time] 65 s [facility] Interpretation and review of laboratory results Abnormal [facility] Therapeutic range fo r APTT's is 68 - 104 seconds [facility] aPTT Coag (Bld) [Time] 55 s [facility] Interpretation and review of laboratory results Abnormal [facility] Therapeutic range fo r APTT's is 68 - 104 seconds [facility] aPTT Coag (Bld) [Time] 31 s [facility] Interpretation and review of laboratory results Normal [facility] Therapeutic range fo r APTT's is 68 - 104 seconds [facility] Basic Metabolic Panelon 12- Anion gap [Moles/Vol] 9 mmol/L Low 10 - 2 0 mmol/L [facility] Calcium [Mass/Vol] 8.1 mg/dL Low 8.4 - 10. 2 mg/dL [facility] Chloride [Moles/Vol] 109 mmol/L High 98 - 10 8 mmol/L [facility] Creatinine [Mass/Vol] 1.11 mg/dL 0.5 - 1.3 mg/dL [facility] GFR/1.73 sq M.predicted CKD-EPI (S/P/Bld) [Vol rate/Area] 79 >=60 mL/min/1.7 3 m2 [facility] Glucose [Mass/Vol] 125 mg/dL High 65 - 99 mg/dL [facility] HCO3 [Moles/Vol] 24 mmol/L 21 - 32 mmol/L [facility] Potassium [Moles/Vol] 4.0 mmol/L 3.5 - 5.1 mmol/L [facility] Sodium [Moles/Vol] 138 mmol/L 135 - 145 mmol/L [facility] Urea nitrogen [Mass/Vol] 22 mg/dL 8 - 25 mg/dL [facility] Urea nitrogen/Creatinine [Mass ratio] 19.8 mg/mg [facility] The eGFR should be u sed for monitoring renal function only and not for medication dosing. [facility] CBCon 01-17-2019 Erythrocyte distribution width (RBC) [Entitic vol] 14.1 % 11.6 - 14.8 % [facility] Hematocrit (Bld) [Volume fraction] 38.7 % Low 41 - 53 % [facility] Hemoglobin (Bld) [Mass/Vol] 12.8 g/dL Low 13.5 - 17.5 g/dL [facility] Interpretation and review of laboratory results Abnormal [facility] MCH (RBC) [Entitic mass] 28.4 pg 26 - 34 pg [facility] MCHC (RBC) [Mass/Vol] 33.1 g/dL 31 - 3 7 g/dL [facility] MCV (RBC) [Entitic vol] 85.8 fL 80 - 100 fL [facility] Nucleated RBC (Bld) [#/Vol] 0.00 10*3/uL [facility] Nucleated RBC/100 WBC (Bld) [Ratio] 0.0 % [facility] Platelet mean volume (Bld) [Entitic vol] 9.9 fL 9 - 15.5 fL [facility] Platelets (Bld) [#/Vol] 227 10*3/uL [facility] RBC (Bld) [#/Vol] 4.51 10*6/uL [facility] WBC (Bld) [#/Vol] 11.26 10*3/uL [facility] CBC WITH AUTO DIFFERENTIALon 01-17-2019 Basophils (Bld) [#/Vol] 0.08 10*3/uL [facility] Basophils/100 WBC (Bld) 0.7 % [facility] Eosinophils (Bld) [#/Vol] 0.64 10*3/uL [facility] Eosinophils/100 WBC (Bld) 5.3 % [facility] Erythrocyte distribution width (RBC) [Entitic vol] 14.0 % 11.6 - 14.8 % [facility] Hematocrit (Bld) [Volume fraction] 41.5 % 41 - 53 % [facility] Hemoglobin (Bld) [Mass/Vol] 13.6 g/dL 13.5 - 17.5 g/dL [facility] Immature granulocytes (Bld) [#/Vol] 0.08 10*3/uL [facility] Immature granulocytes/100 WBC (Bld) 0.70 % [facility] Comment on above: The IG parameter is the percentage of metamyelocytes, myelocytes, and promyelocytes. Interpretation and review of laboratory results Abnormal [facility] Lymphocytes (Bld) [#/Vol] 3.37 10*3/uL [facility] Lymphocytes/100 WBC (Bld) 27.9 % [facility] MCH (RBC) [Entitic mass] 28.0 pg 26 - 34 pg [facility] MCHC (RBC) [Mass/Vol] 32.8 g/dL 31 - 3 7 g/dL [facility] MCV (RBC) [Entitic vol] 85.6 fL 80 - 100 fL [facility] Monocytes (Bld) [#/Vol] 1.02 10*3/uL [facility] Monocytes/100 WBC (Bld) 8.4 % [facility] Neutrophils (Bld) [#/Vol] 6.89 10*3/uL [facility] Neutrophils/100 WBC (Bld) 57.0 % [facility] Nucleated RBC (Bld) [#/Vol] 0.00 10*3/uL [facility] Nucleated RBC/100 WBC (Bld) [Ratio] 0.0 % [facility] Platelet mean volume (Bld) [Entitic vol] 10.0 fL 9 - 15.5 fL [facility] Platelets (Bld) [#/Vol] 269 10*3/uL [facility] RBC (Bld) [#/Vol] 4.85 10*6/uL [facility] WBC (Bld) [#/Vol] 12.08 10*3/uL [facility] D-DIMER, QUANTITATIVEon 12-0 Fibrin D-dimer FEU (PPP) [Mass/Vol] <0.27 0.27 - 0.49 mcg/mL FEU [facility] Interpretation and review of laboratory results Normal [facility] A D-dimer concentrat ion of <0.5 micrograms per milliliter FEU is considered a low probability for pulmonary embolus (PE) and deep venous thrombosis (DVT). Results of this test should always be interpreted in conjunction with the patient's medical history,clinical presentation, and other findings. Clinical diagnosis should not be based on the results of the D-dimer alone. [facility] Fibrin D-dimer FEU (PPP) [Mass/Vol] 0.30 0.27 - 0.49 mcg/mL FEU [facility] Interpretation and review of laboratory results Normal [facility] A D-dimer concentrat ion of <0.5 micrograms per milliliter FEU is considered a low probability for pulmonary embolus (PE) and deep venous thrombosis (DVT). Results of this test should always be interpreted in conjunction with the patient's medical history,clinical presentation, and other findings. Clinical diagnosis should not be based on the results of the D-dimer alone. [facility] ECG 12-LEADon 01-17-2019 Atrial Rate 73 BPM [facility] P [place] 67 degrees [facility] P-R Interval 164 ms [facility] Q-T Interval 386 ms [facility] QRS Duration 86 ms [facility] QTC Calculation (Bezet) 425 ms [facility] R [place] 2 degrees [facility] T [place] 65 degrees [facility] Ventricular Rate 73 BPM [facility] th Normal sinus rhythm Low voltage QRS Inferior infarct , age undetermined Cannot rule out Anteroseptal infarct , age undetermined Abnormal ECG ECG Cart Interpretation see physician note for interpretation. Confirmed by Brandy Kc ([id number]) on 01/17/2019 12:18:52 PM [facility] Hepatic Function Panel (LFT) on 01-17-2019 Albumin [Mass/Vol] 3.1 g/dL Low 3.2 - 5.2 g/dL [facility] ALP [Catalytic activity/Vol] 75 U/L 40 - 150 U/L [facility] ALT [Catalytic activity/Vol] 67 U/L High 14 - 65 U/L [facility] AST [Catalytic activity/Vol] 28 U/L 0 - 45 U/L [facility] Bilirubin [Mass/Vol] 0.9 mg/dL 0 - 1.3 mg/dL [facility] Bilirubin.conjugated [Mass/Vol] 0.2 mg/dL 0 - 0.4 mg/dL [facility] Protein [Mass/Vol] 6.2 g/dL 6 - 8 g/dL [facility] Lactic Acid, Plasmaon 2018 Interpretation and review of laboratory results Normal [facility] Lactate [Moles/Vol] 1.2 mmol/L 0.6 - 2 mmol/L [facility] Lipaseon 01-17-2019 Lipase [Catalytic activity/Vol] 89 U/L 73 - 393 U/L [facility] NT Pro BNPon 01-17-2019 Natriuretic peptide.B prohormone N-Terminal [Mass/Vol] 123 pg/mL 0 - 300 pg/mL [facility] Comment on above: Please note referenc e range change as of 01/30/18. [employer] Study Cut-offs Rule In: < /= 50 Years >450 pg/mL 51 Years - 75 Years >900 pg/mL 76 Years - 99 Years >1800 pg/mL Rule Out: All patients <300 pg/mL [facility] Otheron 01-17-2019 Interpretation and review of laboratory results Abnormal [facility] Interpretation and review of laboratory results Normal [facility] PT/INRon 01-17-2019 INR Coag (PPP) [Relative time] 1.0 {INR} [facility] Interpretation and review of laboratory results Normal [facility] PT Coag (PPP) [Time] 12.5 s [facility] During the induction phase of oral anticoagulation, the INR may not reflect the anticoagulation status of the patient. Therapeutic ranges for INR's are: Most clinical situations: INR 2.0-3.0 Mechanical Prosthetic Valve: INR 2.5-3.5 Critical: INR >5.0 [facility] TROPONINon 01-17-2019 Troponin I.cardiac [Mass/Vol] ng/mL <=45 ng/L [facility] Troponin I.cardiac [Mass/Vol] No biomarker evidence of cardiac injury. [facility] Troponin I.cardiac [Mass/Vol] No biomarker evidence of cardiac injury. [facility] Troponin I.cardiac [Mass/Vol] ng/mL <=45 ng/L [facility] Troponin I.cardiac [Mass/Vol] ng/mL <=45 ng/L [facility] Troponin I.cardiac [Mass/Vol] Normal [facility] URINALYSISon 01-17-2019 Bacteria Auto Ql (U) None Seen None Se en /hpf [facility] Bilirubin Ql (U) Negative Negative [facility] th Clarity Refractometry automated (U) Clear Clear [facility] Color (U) Yellow Colorless, Yellow [facility] Glucose Auto test strip (U) [Mass/Vol] Negative Negative mg/dL [facility] Hemoglobin Auto test strip Ql (U) Negative Negative [facility] Interpretation and review of laboratory results Normal [facility] Ketones (U) [Mass/Vol] Negative Negat bryan mg/dL [facility] Leukocyte esterase Auto test strip Ql (U) Negative Negative [facility] Nitrite Auto test strip Ql (U) Negative Negative [facility] pH (U) 6.0 [pH] [facility] Protein (U) [Mass/Vol] Negative Negat bryan mg/dL [facility] Specific gravity (U) [Rel density] 1.019 [facility] Urobilinogen (U) [Mass/Vol] <2.0 <2.0 mg/dL [facility] WBC Auto (Urine sed) [#/Area] <1 [facility] Microscopic examinat ion is performed on all urinalysis samples and only positive findings are reported. The test for blood on the chemical analytic portion of urinalysis may also be positive due to hemoglobinuria and myoglobinuria and if red blood cells are present they are quantified by microscopic examination. [facility] XR Chest 1 Viewon 01-17-2019 No acute cardiopulmo nary process. [employer] Workstation ID: [id number] [facility] Interface, Rad In Fu ji Speechq [...] is unremarkable. IMPRESSION: No acute cardiopulmonary process. [employer] Workstation ID: [id number] [facility] EXAMINATION: XR CHES T PA/AP HISTORY: [...] normal in size. Bony thorax is unremarkable. [facility] ECG 12-LEADon 01-04-2019 Brian Cordoba MD 01/04/2019 7:49 PM ECG 12- Lead Date/Time: 01/04/2019 6:25 PM Performed by: Brian Cordoba MD Authorized by: Brian Cordoba MD Rhythm: sinus rhythm BPM: 75 Comments: Normal sinus rhythm at rate of 75 bpm low voltage QRS; QTC 4 4 4 ms; [facility] POC B-type natriuretic pepti de (BNP)on 01-04-2019 Interpretation and review of laboratory results Normal [facility] Natriuretic peptide B (Bld) [Mass/Vol] 42.1 pg/mL <100 [facility] POC Basic Metabolic Panelon 01-04-2019 Calcium.ionized (Bld) [Mass/Vol] 4.8 mg/dL 4.5 - 5.3 mg/dL [facility] Chloride [Moles/Vol] 102 mmol/L 98 - 10 8 mmol/L [facility] CO2 [Moles/Vol] 27 mmol/L 21 - 32 mmol/L [facility] Creatinine [Mass/Vol] 0.95 mg/dL 0.5 - 1.3 mg/dL [facility] GFR/1.73 sq M.predicted MDRD (S/P/Bld) [Vol rate/Area] 95 mL/min/{1.73_m2} >=60 mL/min/1.7 3 m2 [facility] Glucose [Mass/Vol] 123 mg/dL High 65 - 99 mg/dL [facility] Interpretation and review of laboratory results Abnormal [facility] Potassium [Moles/Vol] 4.0 mmol/L 3.5 - 5.1 mmol/L [facility] Sodium [Moles/Vol] 141 mmol/L 135 - 145 mmol/L [facility] Urea nitrogen [Mass/Vol] 23 mg/dL 8 - 25 mg/dL [facility] POC CBC and Differentialon 1 03-06-2018 Erythrocyte distribution width (RBC) [Entitic vol] 14.8 % 11.6 - 14.8 % [facility] Hematocrit (Bld) [Volume fraction] 43.1 % 41 - 53 % [facility] Hemoglobin (Bld) [Mass/Vol] 14.3 g/dL 13.5 - 17.5 g/dL [facility] Interpretation and review of laboratory results Abnormal [facility] Lymphocytes (Bld) [#/Vol] 3.0 10*3/uL [facility] Lymphocytes/100 WBC (Bld) 25.9 % [facility] MCH (RBC) [Entitic mass] 28.4 pg 26 - 34 pg [facility] MCHC (RBC) [Mass/Vol] 33.2 g/dL 31 - 3 7 g/dL [facility] MCV (RBC) [Entitic vol] 85.5 fL 80 - 100 fL [facility] Mixed 10.6 % [facility] Mixed Abs 1.2 K/mcl [facility] Neutrophil Abs 7.3 High [facility] Neutrophils/100 WBC (Bld) 63.5 % [facility] Platelet mean volume (Bld) [Entitic vol] 10.6 fL 9 - 15.5 fL [facility] Platelets (Bld) [#/Vol] 289 10*3/uL [facility] RBC (Bld) [#/Vol] 5.04 10*6/uL [facility] ealth WBC (Bld) [#/Vol] 11.50 10*3/uL [facility] POC D-dimeron 01-04-2019 Fibrin D-dimer DDU (PPP) [Mass/Vol] <100 <350 ng/mL DDU [facility] Interpretation and review of laboratory results Normal [facility] A D-Dimer concentrat ion of <350 [...] normal patients are less than 400 ng/ml. [facility] POC Liver Panel Pluson 01-04 Albumin [Mass/Vol] 3.4 g/dL 3.2 - 5.2 g/dL [facility] ALP [Catalytic activity/Vol] 83 U/L 40 - 150 U/L [facility] ALT [Catalytic activity/Vol] 52 U/L High 0 - 40 U/L [facility] Amylase [Catalytic activity/Vol] 42 U/L 25 - 115 U/L [facility] AST [Catalytic activity/Vol] 34 U/L 0 - 45 U/L [facility] Bilirubin [Mass/Vol] 0.8 mg/dL 0 - 1.3 mg/dL [facility] Gamma glutamyl transferase [Catalytic activity/Vol] 28 U/L 11 - 51 U/L [facility] Interpretation and review of laboratory results Abnormal [facility] Protein [Mass/Vol] 6.5 g/dL 6 - 8 g/dL [facility] POC Troponin Ion 01-04-2019 Interpretation and review of laboratory results Normal [facility] Troponin I.cardiac [Mass/Vol] ng/mL <0.05 ng/mL [facility] XR CHEST AP/PA AND LATon Interface, [...] IMPRESSION: Nonacute two-view chest. Workstation ID: [id number] [facility] EXAMINATION: XR CHES T AP/PA AND [...] The diaphragm and bony elements are intact. [facility] Nonacute two-view ch est. Workstation ID: [id number] [facility] NT PRO BNPon 12-26-2018 Interpretation and review of laboratory results Normal [facility] Natriuretic peptide.B prohormone N-Terminal [Mass/Vol] 58 pg/mL 0 - 300 pg/mL [facility] Comment on above: Please note referenc e range change as of 01/30/18. [employer] Study Cut-offs Rule In: < /= 50 Years >450 pg/mL 51 Years - 75 Years >900 pg/mL 76 Years - 99 Years >1800 pg/mL Rule Out: All patients <300 pg/mL [facility] MR Cardiac (Television Picture Tube Rebuilder Juana heller) w/Velocity Flowon 12-25-2018 [facility] CMR Repor t Name: FERNANDO HELTON [...] Hypo 51-75% Apical Lateral Mild/Mod Hypo 51-75% [place] Severe Hypo 51-75% + +--- + ------+ [...] m^2 SETUP TYPE: Clinical INPATIENT: No LOCATION: [facility] INCOMPLETE SCAN: No REASON(S) FOR SCAN: Cardiomyopathy, Thrombus (evaluate for) REFERRING PHYSICIAN: PATRICIA LOUIS ATTENDING PHYSICIAN: GILMER EDUARDO TECHNOLOGIST: Vidhi Escobar Patient Account [id number] CPT Codes 30757 ICD10 Codes I50.22 Report generated by [employer], a product of [employer] Interface, Rad In CMOSIS nv - 12/25/2018 5:14 PM EST [facility] CMR Report Name: FERNANDO HELTON : [...] Hypo 51-75% Apical Lateral Mild/Mod Hypo 51-75% [place] Severe Hypo 51-75% + +--- + ------+ [...] m^2 SETUP TYPE: Clinical INPATIENT: No LOCATION: [facility] INCOMPLETE SCAN: No REASON(S) FOR SCAN: Cardiomyopathy, Thrombus (evaluate for) REFERRING PHYSICIAN: PATRICIA LOUIS ATTENDING PHYSICIAN: GILMER EDUARDO TECHNOLOGIST: Vidhi Escobar Patient Account [id number] CPT Codes 83349 ICD10 Codes I50.22 Report generated by [employer], a product of [employer] [facility] ECHOCARDIOGRAM 2D COMPLETEon 12-10-2018 Transthoracic Echocardiogram Patient: KYLE Hernandez [facility] Rec#: [id number] (Age): 1970(48y) Height: 167.64(cm)/65(i Study Date: 12/10/2018 Weight: 112.49(kg)/247( Room#: BSA: [id number] Type: Loc: Sex: M Reading: Magda Durán MD Referring: Moises Patel M.D Ordering ProvidTruax, Kathryn CNS Can Dryer: Mariann Syed RN RDCS History: COPD. Coronary [...] at 12/10/2018 17:14:17 by: Magda Durán MD [facility] Interface, Rad In [employer]ch[employer] - 12/10/2018 5:28 PM EDT Transthoracic Echocardiogram Patient: KYLE Hernandez [facility] Rec#: [id number] (Age): 1970(48y) Height: 167.64(cm)/65(i Study Date: 12/10/2018 Weight: 112.49(kg)/247( Room#: BSA: [id number] Type: Loc: Sex: M Reading: Magda Durán MD Referring: Moises Patel M.D Ordering Patricia Keller [facility] Can Dryer: Mariann Syed RN RDCS History: COPD. Coronary [...] at 12/10/2018 17:14:17 by: Magda Durán MD [facility] EKGon 09-28-2018 Ordered by an unspec ified provider. [facility] CBC WITH AUTO DIFFERENTIALon 09-27-2018 Basophils (Bld) [#/Vol] 0.09 10*3/uL [facility] Basophils/100 WBC (Bld) 0.7 % [facility] Eosinophils (Bld) [#/Vol] 0.82 10*3/uL High [facility] Eosinophils/100 WBC (Bld) 6.2 % [facility] Erythrocyte distribution width (RBC) [Entitic vol] 14.7 % 11.6 - 14.8 % [facility] Hematocrit (Bld) [Volume fraction] 44.7 % 41 - 53 % [facility] Hemoglobin (Bld) [Mass/Vol] 14.7 g/dL 13.5 - 17.5 g/dL [facility] Immature granulocytes (Bld) [#/Vol] 0.08 10*3/uL [facility] Immature granulocytes/100 WBC (Bld) 0.60 % [facility] Comment on above: The IG parameter is the percentage of metamyelocytes, myelocytes, and promyelocytes. Interpretation and review of laboratory results Abnormal [facility] Lymphocytes (Bld) [#/Vol] 4.45 10*3/uL High [facility] Lymphocytes/100 WBC (Bld) 33.4 % [facility] MCH (RBC) [Entitic mass] 27.6 pg 26 - 34 pg [facility] MCHC (RBC) [Mass/Vol] 32.9 g/dL 31 - 3 7 g/dL [facility] MCV (RBC) [Entitic vol] 83.9 fL 80 - 100 fL [facility] Monocytes (Bld) [#/Vol] 1.10 10*3/uL [facility] Monocytes/100 WBC (Bld) 8.3 % [facility] Neutrophils (Bld) [#/Vol] 6.79 10*3/uL [facility] Neutrophils/100 WBC (Bld) 50.8 % [facility] Nucleated RBC (Bld) [#/Vol] 0.00 10*3/uL [facility] Nucleated RBC/100 WBC (Bld) [Ratio] 0.0 % [facility] Platelet mean volume (Bld) [Entitic vol] 10.6 fL 9 - 15.5 fL [facility] Platelets (Bld) [#/Vol] 288 10*3/uL [facility] RBC (Bld) [#/Vol] 5.33 10*6/uL [facility] ealth WBC (Bld) [#/Vol] 13.33 10*3/uL [facility] ECG 12-LEADon 09-27-2018 Atrial Rate 90 BPM [facility] P [place] 62 degrees [facility] P-R Interval 164 ms [facility] Q-T Interval 348 ms [facility] QRS Duration 94 ms [facility] QTC Calculation (Bezet) 425 ms [facility] R [place] 0 degrees [facility] T [place] 72 degrees [facility] Ventricular Rate 90 BPM [facility] th Normal sinus rhythm Low voltage QRS Cannot rule out Anteroseptal infarct , age undetermined Abnormal ECG ECG Cart Interpretation see physician note for interpretation. Confirmed by Brandy Kc ([id number]) on 09/27/2018 8:20:21 PM [facility] Nathanael Valencia MD 09/27/2018 10:00 PM ECG 12 Lead Date/Time: 09/27/2018 7:16 PM Performed by: Nathanael Valencia MD Authorized by: Nathanael Valencia MD Comparison: not compared with previous ECG Rhythm: sinus rhythm BPM: 90 Conduction: conduction normal ST Segments: ST segments normal T Waves: T waves normal Clinical impression: non-specific ECG Comments: No acute ischemic changes [facility] POC B-type natriuretic pepti de (BNP)on 09-27-2018 Interpretation and review of laboratory results Normal [facility] Natriuretic peptide B (Bld) [Mass/Vol] 19.0 pg/mL <100 [facility] POC Basic Metabolic Panelon 09-27-2018 Calcium [Mass/Vol] 9.5 mg/dL 8.4 - 10. 2 mg/dL [facility] Chloride [Moles/Vol] 106 mmol/L 98 - 10 8 mmol/L [facility] CO2 [Moles/Vol] 25 mmol/L 21 - 32 mmol/L [facility] Creatinine [Mass/Vol] 1.0 mg/dL 0.5 - 1.3 mg/dL [facility] Glucose [Mass/Vol] 140 mg/dL High 65 - 99 mg/dL [facility] Interpretation and review of laboratory results Abnormal [facility] Potassium [Moles/Vol] 3.4 mmol/L Low 3.5 - 5.1 mmol/L [facility] Sodium [Moles/Vol] 139 mmol/L 135 - 145 mmol/L [facility] Urea nitrogen [Mass/Vol] 20 mg/dL 8 - 25 mg/dL [facility] POC CBC and Differentialon 0 09-27-2018 Comment See Comment Critically abnormal (none) [facility] Comment on above: CRITICAL. CBCD reord ered and sent to . Possible presence of immature granulocytes present. Automated differential not reported. Erythrocyte distribution width (RBC) [Entitic vol] 15.4 % High 11.6 - 14.8 % [facility] Hematocrit (Bld) [Volume fraction] 45.1 % 41 - 53 % [facility] Hemoglobin (Bld) [Mass/Vol] 15.0 g/dL 13.5 - 17.5 g/dL [facility] Interpretation and review of laboratory results Abnormal [facility] MCH (RBC) [Entitic mass] 28.5 pg 26 - 34 pg [facility] MCHC (RBC) [Mass/Vol] 33.3 g/dL 31 - 3 7 g/dL [facility] MCV (RBC) [Entitic vol] 85.6 fL 80 - 100 fL [facility] Platelet mean volume (Bld) [Entitic vol] 10.4 fL 9 - 15.5 fL [facility] Platelets (Bld) [#/Vol] 285 10*3/uL [facility] RBC (Bld) [#/Vol] 5.27 10*6/uL [facility] ealth WBC (Bld) [#/Vol] 13.50 10*3/uL High [facility] POC D-dimeron 09-27-2018 Fibrin D-dimer DDU (PPP) [Mass/Vol] <100 <350 ng/mL DDU [facility] Interpretation and review of laboratory results Normal [facility] A D-Dimer concentrat ion of <350 [...] normal patients are less than 400 ng/ml. [facility] POC Troponin Ion 09-27-2018 Interpretation and review of laboratory results Normal [facility] Troponin I.cardiac [Mass/Vol] ng/mL <0.05 ng/mL [facility] Interpretation and review of laboratory results Normal [facility] Troponin I.cardiac [Mass/Vol] ng/mL <0.05 ng/mL [facility] XR Chest 1 Viewon 09-27-2018 Negative acute lorin ble chest. BAB/ads Workstation ID: [id number] [facility] EXAMINATION: XR CHES T PA/AP HISTORY: chest pain COMPARISON: Correlation is made with previous single-view chest 01/08/2018. FINDINGS: Portable AP view of the chest is provided. The cardiomediastinal silhouette is stable. A coronary stent is noted. Lungs are free of focal infiltrate. There is no pleural effusion or pneumothorax present. Bones appear unremarkable. [facility] Interface, Rad In Fu ji Speechq [...] acute portable chest. BAB/ads Workstation ID: [id number] [facility] CBC with Diffon 01-09-2018 Basophils #/vol (Bld) 0.1 K/mcL Normal 0-0.2 [facility] Comment on above: Performed By: #### F SBNP #### Unless otherwise noted, all testing performed by [place] [phone] CLIA: [id number] [employer] Control Agent: Twin Marley M.D. Basophils/100 WBC (Bld) 1.2 % Normal [facility] Comment on above: Performed By: #### F SBNP #### Unless otherwise noted, all testing performed by [place] [phone] CLIA: [id number] [employer] And Balance Control Agent: Twin Marley M.D. Eosinophils #/vol (Bld) 0.5 K/mcL Normal 0-0.5 [facility] Comment on above: Performed By: #### F SBNP #### Unless otherwise noted, all testing performed by [place] [phone] CLIA: [id number] Weight And Balance Control Agent: Twin Marley M.D. Eosinophils/100 WBC (Bld) 4.4 % Normal [facility] Comment on above: Performed By: #### F SBNP #### Unless otherwise noted, all testing performed by [place] [address] CLIA: [id number] Weight And Balance Control Agent: Twin Marley M.D. Erythrocyte distribution width Ratio (RBC) 14.8 % High 10-14.[address] [facility] Comment on above: Performed By: #### F SBNP #### Unless otherwise noted, all testing performed by [place] [address] CLIA: [id number] Weight And Balance Control Agent: Twin Marley M.D. Hematocrit Volume Fraction (Bld) 44.7 % Normal 37.9-49.[address] [facility] Comment on above: Performed By: #### F SBNP #### Unless otherwise noted, all testing performed by [place] [address] CLIA: [id number] Weight And Balance Control Agent: Twin Marley M.D. Hemoglobin mass conc (Bld) 14.7 g/dL Normal 12.9-16.[address] [facility] Comment on above: Performed By: #### F SBNP #### Unless otherwise noted, all testing performed by [place] [address] CLIA: [id number] Weight And Balance Control Agent: Twin Marley M.D. Lymphocytes #/vol (Bld) 4.4 K/mcL High 0.9-3.6 O [facility] Comment on above: Performed By: #### F SBNP #### Unless otherwise noted, all testing performed by [place] [address] CLIA: [id number] Weight And Balance Control Agent: Twin Marley M.D. Lymphocytes/100 WBC (Bld) 38.3 % Normal [facility] Comment on above: Performed By: #### F SBNP #### Unless otherwise noted, all testing performed by [place] [address] CLIA: [id number] [employer] Agent: Twin Marley M.D. MCH Entitic mass (RBC) 27.7 pg Normal 27.7-34.6 [facility] Comment on above: Performed By: #### F SBNP #### Unless otherwise noted, all testing performed by [place] [address] CLIA: [id number] [employer] Control Agent: Twin Marley M.D. MCHC mass conc (RBC) 32.8 g/dL Low 32.9-35.5 [facility] Comment on above: Performed By: #### F SBNP #### Unless otherwise noted, all testing performed by [place] [phone] CLIA: [id number] [employer] Control Agent: Twin Marley M.D. MCV Entitic volume (RBC) 84.5 fL Normal 82.8-99.[address] [facility] Comment on above: Performed By: #### F SBNP #### Unless otherwise noted, all testing performed by [place] [phone] CLIA: [id number] [employer] Control Agent: Twin Marley M.D. Monocytes #/vol (Bld) 0.8 K/mcL High 0.2-0.6 [facility] Comment on above: Performed By: #### F SBNP #### Unless otherwise noted, all testing performed by [place] [phone] CLIA: [id number] [employer] Control Agent: Twin Marley M.D. Monocytes/100 WBC (Bld) 6.6 % Normal [facility] Comment on above: Performed By: #### F SBNP #### Unless otherwise noted, all testing performed by [place] [address] CLIA: [id number] [employer] Control Agent: Twin Marley M.D. Neutrophils #/vol (Bld) 5.7 K/mcL Normal 1.4-6.8 [facility] Comment on above: Performed By: #### F SBNP #### Unless otherwise noted, all testing performed by [place] [address] CLIA: [id number] [employer] Agent: Twin Marley M.D. Platelet mean volume Entitic volume (Bld) 8.7 fL Normal 6.6-10.[address] [facility] Comment on above: Performed By: #### F SBNP #### Unless otherwise noted, all testing performed by [place] [address] CLIA: [id number] [employer] Agent: Twin Marley M.D. Platelets #/vol (Bld) 266 K/mcL Normal 139-354 [facility] Comment on above: Performed By: #### F SBNP #### Unless otherwise noted, all testing performed by [place] [address] CLIA: [id number] [employer] Control Agent: Twin Marley M.D. RBC #/vol (Bld) 5.30 M/mcL Normal 4.0-5.5 [facility] Comment on above: Performed By: #### F SBNP #### Unless otherwise noted, all testing performed by [place] [address] CLIA: [id number] [employer] Control Agent: Twin Marley M.D. Segmented Neut % 49.5 % Normal [facility] Comment on above: Performed By: #### F SBNP #### Unless otherwise noted, all testing performed by [place] [address] CLIA: [id number] [employer] Agent: Twin Marley M.D. WBC #/vol (Bld) 11.6 K/mcL High 3.6-10.4 [facility] Comment on above: Performed By: #### F SBNP #### Unless otherwise noted, all testing performed by [place] [phone] CLIA: [id number] [employer] Agent: Twin Marley M.D. CHEMG (Basic Metabolic and M g)on 01-09-2018 Calcium mass conc 8.4 mg/dL Normal 8.4-10.2 [facility] Comment on above: Performed By: #### F SBNP #### Unless otherwise noted, all testing performed by [place] [phone] CLIA: [id number] [employer] Agent: Twin Marley M.D. Chloride molar conc 103 mmol/L Normal 98-108 [facility] Comment on above: Performed By: #### F SBNP #### Unless otherwise noted, all testing performed by [place] [address] CLIA: [id number] [employer] Agent: Twin Marley M.D. CO2 molar conc 27 mmol/L Normal 21-[address] [facility] Comment on above: Performed By: #### F SBNP #### Unless otherwise noted, all testing performed by [place] [address] CLIA: [id number] [employer] Agent: Twin Marley M.D. Creatinine mass conc 1.14 mg/dL Normal 0.50-1.30 [facility] Comment on above: Performed By: #### F SBNP #### Unless otherwise noted, all testing performed by [place] [address] CLIA: [id number] [employer] Control Agent: Twin Marley M.D. GFR/1.73 sq M predicted among blacks MDRD vol rate/area (S/P/Bld) mL/min/{1.73_m2} Normal [facility] Comment on above: Result Comment: Afri can [place] GFR Calc Performed By: #### F SBNP #### Unless otherwise noted, all testing performed by [place] [address] CLIA: [id number] [employer] Control Agent: Twin Marley M.D. GFR/1.73 sq M predicted among non-blacks MDRD vol rate/area (S/P/Bld) mL/min/{1.73_m2} Normal [facility] Comment on above: Result Comment: Non- GFR [...] Unless otherwise noted, all testing performed by [place] [address] CLIA: [id number] [employer] Control Agent: Twin Marley M.D. Glucose mass conc 102 mg/dL High 70-99 [facility] Comment on above: Result Comment: This test result might be falsely depressed or falsely elevated on samples drawn from patients taking Sulfasalazine and Sulfapyridine. Venipuncture should occur prior to taking either of these drugs. Performed By: #### F SBNP #### Unless otherwise noted, all testing performed by [place] [address] CLIA: [id number] [employer] Control Agent: Twin Marley M.D. Magnesium mass conc 2.2 mg/dL Normal 1.6-2.4 [facility] Comment on above: Performed By: #### F SBNP #### Unless otherwise noted, all testing performed by [place] [phone] CLIA: [id number] [employer] Agent: Twin Marley M.D. Potassium molar conc 4.2 mmol/L Normal 3.5-5.1 [facility] Comment on above: Performed By: #### F SBNP #### Unless otherwise noted, all testing performed by [place] [phone] CLIA: [id number] [employer] Control Agent: Twin Marley M.D. Sodium molar conc 138 mmol/L Normal 135-145 [facility] Comment on above: Performed By: #### F SBNP #### Unless otherwise noted, all testing performed by [place] [address] CLIA: [id number] [employer] Control Agent: Twin Marley M.D. Urea nitrogen mass conc 20 mg/dL Normal 8-25 [facility] Comment on above: Performed By: #### F SBNP #### Unless otherwise noted, all testing performed by [place] [address] CLIA: [id number] [employer] Control Agent: Twin Marley M.D. Cardiac Troponin-Ion 018 Troponin I.cardiac mass conc No Biomarker evidence of myocardial injury within the past 14 hours. [address] [facility] Comment on above: Performed By: #### F SCBC #### Unless otherwise noted, all testing performed by [place] [address] CLIA: [id number] [employer] Control Agent: Twin Marley M.D. Troponin I.cardiac mass conc ng/mL Normal < 45.[address] [facility] Comment on above: Result Comment: Elev [...] Unless otherwise noted, all testing performed by [place] [address] CLIA: [id number] [employer] Control Agent: Twin Marley M.D. Partial Thromboplastin Timeo n 01-09-2018 aPTT Coag time (Bld) 48 s High 23.0-34.0 [facility] Comment on above: Result Comment: Sugg ested therapeutic range for PTT is 68-104 sec. Performed By: #### F SBNP #### Unless otherwise noted, all testing performed by [place] [address] CLIA: [id number] [employer] And Balance Control Agent: Twin Marley M.D. aPTT Coag time (Bld) 39 s High 23.0-34.0 [facility] Comment on above: Result Comment: Sugg ested therapeutic range for PTT is 68-104 sec. Performed By: #### F SCBC #### Unless otherwise noted, all testing performed by [place] [address] CLIA: [id number] [employer] Balance Control Agent: Twin Marley M.D. Protimeon 01-09-2018 INR Coag RelTime (PPP) 0.94 {INR} Normal [facility] Comment on above: Result Comment: [employer] recommended therapeutic range for Warfarin (Coumadin) therapy goals: PROPHYLAXIS/TREATMENT of: INR Venous Thrombosis, Pulmonary Embolism 2.0-3.0 Prevention of VTE (Orthopedic Surgery) 2.0-3.0 Atrial Fibrillation 2.0-3.0 Myocardial Infarction 2.0-3.0 Mechanical Prosthetic Heart Valves (Aortic position) 2.0-3.0 Mechanical Prosthetic Heart Valves (Mitral Position) 2.5-3.5 [employer] [place] [employer] evidence-based clinical practice guidelines. CHEST. 2012 (9th ed) Performed By: #### F SBNP #### Unless otherwise noted, all testing performed by [place] [address] CLIA: [id number] [employer] Balance Control Agent: Twin Marley M.D. Prothrombin time (PT) Coag time (PPP) 12.2 s Normal 11.8-14.[address] [facility] Comment on above: Performed By: #### F SBNP #### Unless otherwise noted, all testing performed by [place] [address] CLIA: [id number] [employer] Control Agent: Twin Marley M.D. BLDPATHon 01-08-2018 BLDPATH [id number] Patient Name: FERNANDO HELTON Source Peripheral Blood Diagnosis Absolute lymphocytosis present. Repeat CBC in 12 months or earlier if clinically indicated. If lymphocytosis persists, suggest flow cytometry to rule out a lymphoproliferative disorder. Electronically Signed By Hematology Department , Testing performed at [facility] (Case signed 01/09/2018) Normal [facility] Blood Smear Reviewon 018 Blood Smear Review See Pathology Report. Normal [facility] Comment on above: Performed By: #### F SCBC #### Unless otherwise noted, all testing performed by [place] [address] CLIA: [id number] [employer] Agent: Twin Marley M.D. CBC with Diffon 01-08-2018 Band 1.9 % Normal 0-[address] [facility] Comment on above: Performed By: #### F SBMET #### Unless otherwise noted, all testing performed by [place] [address] CLIA: [id number] [employer] Control Agent: Twin Marley M.D. Basophils #/vol (Bld) 0.0 K/mcL Normal 0-0.[address] [facility] Comment on above: Performed By: #### F SBMET #### Unless otherwise noted, all testing performed by [place] [address] CLIA: [id number] [employer] Control Agent: Twin Marley M.D. Basophils/100 WBC (Bld) 0.0 % Normal [facility] Comment on above: Performed By: #### F SBMET #### Unless otherwise noted, all testing performed by [place] [address] CLIA: [id number] [employer] Control Agent: Twin Marley M.D. Eosinophils #/vol (Bld) 0.6 K/mcL High 0-0.5 [facility] Comment on above: Performed By: #### F SBMET #### Unless otherwise noted, all testing performed by [place] [address] CLIA: [id number] [employer] Control Agent: Twin Marley M.D. Eosinophils/100 WBC (Bld) 3.9 % Normal [facility] Comment on above: Performed By: #### F SBMET #### Unless otherwise noted, all testing performed by [place] [address] CLIA: [id number] [employer] Agent: Twin Marley M.D. Erythrocyte distribution width Ratio (RBC) 15.1 % High 10-14.[address] [facility] Comment on above: Performed By: #### F SBMET #### Unless otherwise noted, all testing performed by [place] [phone] CLIA: [id number] [employer] Control Agent: Twin Marley M.D. Hematocrit Volume Fraction (Bld) 44.3 % Normal 37.9-49.[address] [facility] Comment on above: Performed By: #### F SBMET #### Unless otherwise noted, all testing performed by [place] [phone] CLIA: [id number] [employer] Control Agent: Twin Marley M.D. Hemoglobin mass conc (Bld) 14.5 g/dL Normal 12.9-16.[address] [facility] Comment on above: Performed By: #### F SBMET #### Unless otherwise noted, all testing performed by [place] [phone] CLIA: [id number] [employer] Control Agent: Twin Marley M.D. Lymphocytes #/vol (Bld) 5.1 K/mcL High 0.9-3.6 [facility] Comment on above: Performed By: #### F SBMET #### Unless otherwise noted, all testing performed by [place] [address] CLIA: [id number] Weight And Balance Control Agent: Twin Marley M.D. Lymphocytes/100 WBC (Bld) 35.9 % Normal [facility] Comment on above: Performed By: #### F SBMET #### Unless otherwise noted, all testing performed by [place] [address] CLIA: [id number] Weight [employer] Balance Control Agent: Twin Marley M.D. MCH Entitic mass (RBC) 27.7 pg Normal 27.7-34.6 [facility] Comment on above: Performed By: #### F SBMET #### Unless otherwise noted, all testing performed by [place] [phone] CLIA: [id number] Weight And Balance Control Agent: Twin Marley M.D. MCHC mass conc (RBC) 32.6 g/dL Low 32.9-35.5 [facility] Comment on above: Performed By: #### F SBMET #### Unless otherwise noted, all testing performed by [place] [address] CLIA: [id number] Weight And Balance Control Agent: Twin Marley M.D. MCV Entitic volume (RBC) 84.9 fL Normal 82.8-99.[address] [facility] Comment on above: Performed By: #### F SBMET #### Unless otherwise noted, all testing performed by [place] [address] CLIA: [id number] Weight And Balance Control Agent: Twin Marley M.D. Metamyelocytes/100 WBC (Bld) 1.9 % High [address] [facility] Comment on above: Performed By: #### F SBMET #### Unless otherwise noted, all testing performed by [place] [phone] CLIA: [id number] Weight And Balance Control Agent: Twin Marley M.D. Monocytes #/vol (Bld) 0.6 K/mcL Normal 0.2-0.6 [facility] Comment on above: Performed By: #### F SBMET #### Unless otherwise noted, all testing performed by [place] [phone] CLIA: [id number] Weight And Balance Control Agent: Twin Marley M.D. Monocytes/100 WBC (Bld) 3.9 % Normal [facility] Comment on above: Performed By: #### F SBMET #### Unless otherwise noted, all testing performed by [place] [phone] CLIA: [id number] [employer] Control Agent: Twin Marley M.D. Myelocyte 1.0 % High [address] [facility] Comment on above: Performed By: #### F SBMET #### Unless otherwise noted, all testing performed by [place] [phone] CLIA: [id number] Weight And Balance Control Agent: Twin Marley M.D. Neutrophils #/vol (Bld) 8.1 K/mcL High 1.4-6.8 [facility] Comment on above: Performed By: #### F SBMET #### Unless otherwise noted, all testing performed by [place] [phone] CLIA: [id number] Weight And Balance Control Agent: Twin Marley M.D. Platelet mean volume Entitic volume (Bld) 8.8 fL Normal 6.6-10.[address] [facility] Comment on above: Performed By: #### F SBMET #### Unless otherwise noted, all testing performed by [place] [address] CLIA: [id number] Weight And Balance Control Agent: Twin Marley M.D. Platelets #/vol (Bld) 260 K/mcL Normal 139-354 [facility] Comment on above: Performed By: #### F SBMET #### Unless otherwise noted, all testing performed by [place] [phone] CLIA: [id number] Weight And Balance Control Agent: Twin Marley M.D. RBC #/vol (Bld) 5.22 M/mcL Normal 4.0-5.5 [facility] Comment on above: Performed By: #### F SBMET #### Unless otherwise noted, all testing performed by [place] [phone] CLIA: [id number] Weight And Balance Control Agent: Twin Marley M.D. Segmented Neut % 51.5 % Normal [facility] Comment on above: Result Comment: Carline mccollum performed. Performed By: #### F SBMET #### Unless otherwise noted, all testing performed by [place] [phone] CLIA: [id number] Weight And Balance Control Agent: Twin Marley M.D. WBC #/vol (Bld) 14.3 K/mcL High 3.6-10.4 [facility] Comment on above: Performed By: #### F SBMET #### Unless otherwise noted, all testing performed by [place] [address] CLIA: [id number] Weight And Balance Control Agent: Twin Marley M.D. CHEST (ONE VIEW ONLY)on 12-14 CHEST (ONE VIEW ONLY) Final Report Accession No: [id number] Performed: Jan 08 2018 6:04PM Examination: [...] MURPHY M.D. Trans: n/a : cc: Normal [facility] Cardiac Troponin-Ion 018 Troponin I.cardiac mass conc ng/mL Normal < 45.[address] [facility] Comment on above: Result Comment: Elev [...] Unless otherwise noted, all testing performed by [place] [address] CLIA: [id number] [employer] Balance Control Agent: Twin Marley M.D. Troponin I.cardiac mass conc No Biomarker evidence of myocardial injury within the past 14 hours. Normal [facility] Comment on above: Performed By: #### F SCBC #### Unless otherwise noted, all testing performed by [place] [address] CLIA: [id number] Weight And Balance Control Agent: Twin Marley M.D. Troponin I.cardiac mass conc ng/mL Normal < 45.[address] [facility] Comment on above: Result Comment: Elev [...] Unless otherwise noted, all testing performed by [place] [address] CLIA: [id number] Weight And Balance Control Agent: Twin Marley M.D. [facility] 01-08-2018 Albumin mass conc 3.3 g/dL Normal 3.2-5.2 [facility] Comment on above: Performed By: #### F SCBC #### Unless otherwise noted, all testing performed by [place] [address] CLIA: [id number] Weight And Balance Control Agent: Twin Marley M.D. ALP enzyme act/vol 61 U/L Normal 40-150 [facility] Comment on above: Performed By: #### F SCBC #### Unless otherwise noted, all testing performed by [place] [address] CLIA: [id number] Weight And Balance Control Agent: Twin Marley M.D. ALT enzyme act/vol 41 U/L Normal 14-65 [facility] Comment on above: Result Comment: This test result might be falsely depressed or falsely elevated on samples drawn from patients taking Sulfasalazine and Sulfapyridine. Venipuncture should occur prior to taking either of these drugs. Performed By: #### F SCBC #### Unless otherwise noted, all testing performed by [place] [address] CLIA: [id number] Weight [employer] Balance Control Agent: Twin Marley M.D. AST enzyme act/vol 19 U/L Normal 0-45 [facility] Comment on above: Result Comment: This test result might be falsely depressed or falsely elevated on samples drawn from patients taking Sulfasalazine and Sulfapyridine. Venipuncture should occur prior to taking either of these drugs. Performed By: #### F SCBC #### Unless otherwise noted, all testing performed by [place] [address] CLIA: [id number] [employer] Control Agent: Twin Marley M.D. Bilirubin mass conc 0.8 mg/dL Normal 0.3-1.2 [facility] Comment on above: Performed By: #### F SCBC #### Unless otherwise noted, all testing performed by [place] [address] CLIA: [id number] Weight And Balance Control Agent: Twin Marley M.D. Calcium mass conc 8.4 mg/dL Normal 8.4-10.2 [facility] Comment on above: Performed By: #### F SCBC #### Unless otherwise noted, all testing performed by [place] [address] CLIA: [id number] Weight And Balance Control Agent: Twin Marley M.D. Chloride molar conc 107 mmol/L Normal 98-108 [facility] Comment on above: Performed By: #### F SCBC #### Unless otherwise noted, all testing performed by [place] [address] CLIA: [id number] Weight And Balance Control Agent: Twin Marley M.D. CO2 molar conc 26 mmol/L Normal 21-[address] [facility] Comment on above: Performed By: #### F SCBC #### Unless otherwise noted, all testing performed by [place] [address] CLIA: [id number] Weight And Balance Control Agent: Twin Marley M.D. Creatinine mass conc 1.10 mg/dL Normal 0.50-1.30 [facility] Comment on above: Performed By: #### F SCBC #### Unless otherwise noted, all testing performed by [place] [phone] CLIA: [id number] Weight And Balance Control Agent: Twin Marley M.D. GFR/1.73 sq M predicted among blacks MDRD vol rate/area (S/P/Bld) mL/min/{1.73_m2} Normal [facility] Comment on above: Result Comment: Afri can [place] GFR Calc Performed By: #### F SCBC #### Unless otherwise noted, all testing performed by [place] [address] CLIA: [id number] Weight And Balance Control Agent: Twin Marley M.D. GFR/1.73 sq M predicted among non-blacks MDRD vol rate/area (S/P/Bld) mL/min/{1.73_m2} Normal [facility] Comment on above: Result Comment: Non- GFR [...] Unless otherwise noted, all testing performed by [address] [place], [place] [address] CLIA: [id number] Weight And Balance Control Agent: Twin Marley M.D. Glucose mass conc 96 mg/dL Normal 70-99 [facility] Comment on above: Result Comment: This test result might be falsely depressed or falsely elevated on samples drawn from patients taking Sulfasalazine and Sulfapyridine. Venipuncture should occur prior to taking either of these drugs. Performed By: #### F SCBC #### Unless otherwise noted, all testing performed by [place] [address] CLIA: [id number] Weight And Balance Control Agent: Twin Marley M.D. Potassium molar conc 3.9 mmol/L Normal 3.5-5.1 [facility] Comment on above: Performed By: #### F SCBC #### Unless otherwise noted, all testing performed by [place] [address] CLIA: [id number] [employer] Balance Control Agent: Twin Marley M.D. Protein mass conc 6.6 g/dL Normal 6.0-8.0 [facility] Comment on above: Performed By: #### F SCBC #### Unless otherwise noted, all testing performed by [place] [address] CLIA: [id number] Weight And Balance Control Agent: Twin Marley M.D. Sodium molar conc 141 mmol/L Normal 135-145 [facility] Comment on above: Performed By: #### F SCBC #### Unless otherwise noted, all testing performed by [place] [address] CLIA: [id number] Weight And Balance Control Agent: Twin Marley M.D. Urea nitrogen mass conc 20 mg/dL Normal 8-25 [facility] Comment on above: Performed By: #### F SCBC #### Unless otherwise noted, all testing performed by [place] [address] CLIA: [id number] [employer] And Balance Control Agent: Twin Marley M.D. Magnesiumon 01-08-2018 Magnesium mass conc 2.0 mg/dL Normal 1.6-2.4 [facility] Comment on above: Performed By: #### F SCBC #### Unless otherwise noted, all testing performed by [place] [address] CLIA: [id number] [employer] Control Agent: Twin Marley M.D. NT-Pro BNP, Serumon 01-09-20 18 Natriuretic peptide B mass conc (Bld) 143 pg/mL High 0-[address] [facility] Comment on above: Performed By: #### F SCBC #### Unless otherwise noted, all testing performed by [place] [address] CLIA: [id number] [employer] Control Agent: Twin Marley M.D. Partial Thromboplastin Timeo n 01-08-2018 aPTT Coag time (Bld) 40 s High 23.0-34.0 [facility] Comment on above: Result Comment: Rosemary sauceda therapeutic range for PTT is 68-104 sec. Performed By: #### F SBMET #### Unless otherwise noted, all testing performed by [place] [address] CLIA: [id number] [employer] Balance Control Agent: Twin Marley M.D. Protimeon 01-08-2018 INR Coag RelTime (PPP) 0.99 {INR} Normal [facility] Comment on above: Result Comment: [employer] recommended therapeutic range for Warfarin (Coumadin) therapy goals: PROPHYLAXIS/TREATMENT of: INR Venous Thrombosis, Pulmonary Embolism 2.0-3.0 Prevention of VTE (Orthopedic Surgery) 2.0-3.0 Atrial Fibrillation 2.0-3.0 Myocardial Infarction 2.0-3.0 Mechanical Prosthetic Heart Valves (Aortic position) 2.0-3.0 Mechanical Prosthetic Heart Valves (Mitral Position) 2.5-3.5 [employer] [place] [employer] evidence-based clinical practice guidelines. CHEST. 2012 (9th ed) Performed By: #### F SBMET #### Unless otherwise noted, all testing performed by [place] [address] CLIA: [id number] [employer] And Balance Control Agent: Twin Marley M.D. Prothrombin time (PT) Coag time (PPP) 12.7 s Normal 11.8-14.[address] [facility] Comment on above: Performed By: #### F SBMET #### Unless otherwise noted, all testing performed by [place] [address] CLIA: [id number] [employer] Control Agent: Twin Marley M.D. TSHon 01-08-2018 Thyrotropin Qn 2.26 uIU/mL Normal 0.270-4.[address] [facility] Comment on above: Result Comment: Samp les from patients routinely receiving high dose biotin therapy (100-300 mg/day) may show falsely decreased results. Please correlate clinically. Please note reference range change as of 12/04/17. Performed By: #### F SCBC #### Unless otherwise noted, all testing performed by [place] [address] CLIA: [id number] [employer] And Balance Control Agent: Twin Marley M.D. Basic Metabolic Panelon 12-14 Calcium mass conc 8.4 mg/dL Normal 8.4-10.2 [facility] Comment on above: Performed By: #### F SBMET #### Unless otherwise noted, all testing performed by [place] [address] CLIA: [id number] [employer] Agent: Twin Marley M.D. Chloride molar conc 108 mmol/L Normal 98-108 [facility] Comment on above: Performed By: #### F SBMET #### Unless otherwise noted, all testing performed by [place] [address] CLIA: [id number] [employer] Control Agent: Twin Marley M.D. CO2 molar conc 24 mmol/L Normal 21-[address] [facility] Comment on above: Performed By: #### F SBMET #### Unless otherwise noted, all testing performed by [place] [address] CLIA: [id number] [employer] Agent: Twin Marley M.D. Creatinine mass conc 1.14 mg/dL Normal 0.50-1.30 [facility] Comment on above: Performed By: #### F SBMET #### Unless otherwise noted, all testing performed by [place] [address] CLIA: [id number] [employer] Agent: Twin Marley M.D. GFR/1.73 sq M predicted among blacks MDRD vol rate/area (S/P/Bld) mL/min/{1.73_m2} Normal [facility] Comment on above: Result Comment: Afri can South African GFR Calc Performed By: #### F SBMET #### Unless otherwise noted, all testing performed by [place] [address] CLIA: [id number] [employer] Control Agent: Twin Marley M.D. GFR/1.73 sq M predicted among non-blacks MDRD vol rate/area (S/P/Bld) mL/min/{1.73_m2} Normal [facility] Comment on above: Result Comment: Non- GFR [...] Unless otherwise noted, all testing performed by [place] [address] CLIA: [id number] [employer] Control Agent: Twin Marley M.D. Glucose mass conc 119 mg/dL High 70-99 [facility] Comment on above: Result Comment: This test result might be falsely depressed or falsely elevated on samples drawn from patients taking Sulfasalazine and Sulfapyridine. Venipuncture should occur prior to taking either of these drugs. Performed By: #### F SBMET #### Unless otherwise noted, all testing performed by [place] [address] CLIA: [id number] [employer] Agent: Twin Marley M.D. Potassium molar conc 3.7 mmol/L Normal 3.5-5.1 [facility] Comment on above: Performed By: #### F SBMET #### Unless otherwise noted, all testing performed by [place] [address] CLIA: [id number] [employer] Agent: Twin Marley M.D. Sodium molar conc 140 mmol/L Normal 135-145 [facility] Comment on above: Performed By: #### F SBMET #### Unless otherwise noted, all testing performed by [place] [address] CLIA: [id number] [employer] Control Agent: Twin Marley M.D. Urea nitrogen mass conc 18 mg/dL Normal 8-25 [facility] Comment on above: Performed By: #### F SBMET #### Unless otherwise noted, all testing performed by [place] [address] CLIA: [id number] [employer] Agent: Twin Marley M.D. DPATHon 09-24-2017 [facility] [id number] Patient Name: FERNANDO HELTON Source Peripheral Blood Diagnosis Absolute eosinophilia. Possible causes include allergic or drug reaction, cutaneous disorders, collagen vascular disease, parasite infection, pulmonary diseases including sarcoidosis, or underlying neoplasm. Suggest clinical correlation. Electronically Signed By Hematology Department , Testing performed at [facility] (Case signed 09/24/2017) Normal [facility] Basic Metabolic Panelon 09-12 Calcium mass conc 7.6 mg/dL Low 8.4-10.2 [facility] Comment on above: Performed By: #### P T #### Unless otherwise noted, all testing performed by [place] [address] CLIA: [id number] [employer] Agent: Twin Marley M.D. Chloride molar conc 108 mmol/L Normal 98-108 [facility] Comment on above: Performed By: #### P T #### Unless otherwise noted, all testing performed by [place] [address] CLIA: [id number] [employer] Agent: Twin Marley M.D. CO2 molar conc 27 mmol/L Normal 21-[address] [facility] Comment on above: Performed By: #### P T #### Unless otherwise noted, all testing performed by [place] [address] CLIA: [id number] [employer] Agent: Twin Marley M.D. Creatinine mass conc 1.13 mg/dL Normal 0.50-1.30 [facility] Comment on above: Performed By: #### P T #### Unless otherwise noted, all testing performed by [place] [address] CLIA: [id number] [employer] Agent: Twin Marley M.D. GFR/1.73 sq M predicted among blacks MDRD vol rate/area (S/P/Bld) mL/min/{1.73_m2} Normal [facility] Comment on above: Result Comment: Afri can [place] African GFR Calc Performed By: #### P T #### Unless otherwise noted, all testing performed by [place] [address] CLIA: [id number] [employer] Agent: Twin Marley M.D. GFR/1.73 sq M predicted among non-blacks MDRD vol rate/area (S/P/Bld) mL/min/{1.73_m2} Normal [facility] Comment on above: Result Comment: Non- GFR [...] Unless otherwise noted, all testing performed by [place] [address] CLIA: [id number] [employer] Agent: Twin Marley M.D. Glucose mass conc 116 mg/dL High 70-99 [facility] Comment on above: Result Comment: This test result might be falsely depressed or falsely elevated on samples drawn from patients taking Sulfasalazine and Sulfapyridine. Venipuncture should occur prior to taking either of these drugs. Performed By: #### P T #### Unless otherwise noted, all testing performed by [place] [address] CLIA: [id number] [employer] Agent: Twin Marley M.D. Potassium molar conc 3.9 mmol/L Normal 3.5-5.1 [facility] Comment on above: Performed By: #### P T #### Unless otherwise noted, all testing performed by [place] [address] CLIA: [id number] [employer] Agent: Twin Marley M.D. Sodium molar conc 138 mmol/L Normal 135-145 [facility] Comment on above: Performed By: #### P T #### Unless otherwise noted, all testing performed by [place] [address] CLIA: [id number] [employer] Control Agent: Twin Marley M.D. Urea nitrogen mass conc 17 mg/dL Normal 8-25 [facility] Comment on above: Performed By: #### P T #### Unless otherwise noted, all testing performed by [place] [address] CLIA: [id number] [employer] Agent: Twin Marley M.D. Blood Smear Reviewon 018 Blood Smear Review See Pathology Report. Normal [facility] Comment on above: Performed By: #### F SBMET #### Unless otherwise noted, all testing performed by [place] [address] CLIA: [id number] [employer] Agent: Twin Marley M.D. CBC with Diffon 09-24-2017 Basophils #/vol (Bld) 0.1 K/mcL Normal 0-0.2 [facility] Comment on above: Performed By: #### F SBMET #### Unless otherwise noted, all testing performed by [place] [address] CLIA: [id number] [employer] Control Agent: Twin Marley M.D. Basophils/100 WBC (Bld) 0.8 % Normal [facility] Comment on above: Performed By: #### F SBMET #### Unless otherwise noted, all testing performed by [place] [phone] CLIA: [id number] [employer] Control Agent: Twin Marley M.D. Eosinophils #/vol (Bld) 0.7 K/mcL High 0-0.5 [facility] Comment on above: Performed By: #### F SBMET #### Unless otherwise noted, all testing performed by [place] [address] CLIA: [id number] [employer] Agent: Twin Marley M.D. Eosinophils/100 WBC (Bld) 8.0 % Normal [facility] Comment on above: Performed By: #### F SBMET #### Unless otherwise noted, all testing performed by [place] [address] CLIA: [id number] [employer] Agent: Twin Marley M.D. Erythrocyte distribution width Ratio (RBC) 15.4 % High 10-14.[address] [facility] Comment on above: Performed By: #### F SBMET #### Unless otherwise noted, all testing performed by [place] [address] CLIA: [id number] [employer] Agent: Twin Marley M.D. Hematocrit Volume Fraction (Bld) 44.6 % Normal 37.9-49.[address] [facility] Comment on above: Performed By: #### F SBMET #### Unless otherwise noted, all testing performed by [place] [address] CLIA: [id number] [employer] Agent: Twin Marley M.D. Hemoglobin mass conc (Bld) 14.8 g/dL Normal 12.9-16.[address] [facility] Comment on above: Performed By: #### F SBMET #### Unless otherwise noted, all testing performed by [place] [address] CLIA: [id number] [employer] Agent: Twin Marley M.D. Lymphocytes #/vol (Bld) 3.2 K/mcL Normal 0.9-3.6 O [facility] Comment on above: Performed By: #### F SBMET #### Unless otherwise noted, all testing performed by [place] [address] CLIA: [id number] [employer] Agent: Twin Marley M.D. Lymphocytes/100 WBC (Bld) 35.8 % Normal [facility] Comment on above: Performed By: #### F SBMET #### Unless otherwise noted, all testing performed by [place] [address] CLIA: [id number] [employer] Control Agent: Twin Marley M.D. MCH Entitic mass (RBC) 28.3 pg Normal 27.7-34.6 [facility] Comment on above: Performed By: #### F SBMET #### Unless otherwise noted, all testing performed by [place] [address] CLIA: [id number] [employer] Control Agent: Twin Marley M.D. MCHC mass conc (RBC) 33.3 g/dL Normal 32.9-35.5 [facility] Comment on above: Performed By: #### F SBMET #### Unless otherwise noted, all testing performed by [place] [address] CLIA: [id number] [employer] Agent: Twin Marley M.D. MCV Entitic volume (RBC) 84.9 fL Normal 82.8-99.[address] [facility] Comment on above: Performed By: #### F SBMET #### Unless otherwise noted, all testing performed by [place] [phone] CLIA: [id number] [employer] Agent: Twin Marley M.D. Monocytes #/vol (Bld) 0.7 K/mcL High 0.2-0.6 [facility] Comment on above: Performed By: #### F SBMET #### Unless otherwise noted, all testing performed by [place] [address] CLIA: [id number] [employer] Control Agent: Twin Marley M.D. Monocytes/100 WBC (Bld) 7.7 % Normal [facility] Comment on above: Performed By: #### F SBMET #### Unless otherwise noted, all testing performed by [place] [address] CLIA: [id number] [employer] Agent: Twin Marley M.D. Neutrophils #/vol (Bld) 4.2 K/mcL Normal 1.4-6.8 [facility] Comment on above: Performed By: #### F SBMET #### Unless otherwise noted, all testing performed by [place] [address] CLIA: [id number] [employer] Agent: Twin Marley M.D. Platelet mean volume Entitic volume (Bld) 9.0 fL Normal 6.6-10.[address] [facility] Comment on above: Performed By: #### F SBMET #### Unless otherwise noted, all testing performed by [place] [phone] CLIA: [id number] [employer] Agent: Twin Marley M.D. Platelets #/vol (Bld) 280 K/mcL Normal 139-354 [facility] Comment on above: Performed By: #### F SBMET #### Unless otherwise noted, all testing performed by [place] [address] CLIA: [id number] [employer] Agent: Twin Marley M.D. RBC #/vol (Bld) 5.25 M/mcL Normal 4.0-5.5 [facility] Comment on above: Performed By: #### F SBMET #### Unless otherwise noted, all testing performed by [place] [address] CLIA: [id number] [employer] Control Agent: Twin Marley M.D. RBC morphology finding Nom (Bld) Normal Normal Normal [facility] Comment on above: Performed By: #### F SBMET #### Unless otherwise noted, all testing performed by [place] [address] CLIA: [id number] [employer] Agent: Twin Marley M.D. Segmented Neut % 47.7 % Normal [facility] Comment on above: Result Comment: Smea r reviewed to verify automated differential> Performed By: #### F SBMET #### Unless otherwise noted, all testing performed by [place] [address] CLIA: [id number] [employer] Agent: Twin Marley M.D. WBC #/vol (Bld) 8.9 K/mcL Normal 3.6-10.4 [facility] Comment on above: Performed By: #### F SBMET #### Unless otherwise noted, all testing performed by [place] [address] CLIA: [id number] [employer] Agent: Twin Marley M.D. Cardiac Troponin-Ion 09-24-2 018 Troponin I.cardiac mass conc ng/mL Normal < 45.[address] [facility] Comment on above: Result Comment: Elev [...] Unless otherwise noted, all testing performed by [place] [address] CLIA: [id number] [employer] Control Agent: Twin Marley M.D. Troponin I.cardiac mass conc No Biomarker evidence of myocardial injury within the past 14 hours. [address] [facility] Comment on above: Performed By: #### P T #### Unless otherwise noted, all testing performed by [place] [address] CLIA: [id number] [employer] Balance Control Agent: Twin Marley M.D. Troponin I.cardiac mass conc No Biomarker evidence of myocardial injury within the past 14 hours. [address] [facility] Comment on above: Performed By: #### P T #### Unless otherwise noted, all testing performed by [place] [address] CLIA: [id number] [employer] Control Agent: Twin Marley M.D. Troponin I.cardiac mass conc ng/mL Normal < 45.[address] [facility] Comment on above: Result Comment: Elev [...] Unless otherwise noted, all testing performed by [place] [address] CLIA: [id number] [employer] Agent: Twin Marley M.D. D-Dimeron 09-24-2017 D-Dimer < 0.27 Normal < .[address] [facility] Comment on above: Result Comment: This test is intended for use in conjunction with a clinical pretest probability (PTP) assessment model to exclude pulmonary embolism (PE) and deep vein thrombosis (DVT) in outpatients suspected of PE or DVT. Performed By: #### F SBMET #### Unless otherwise noted, all testing performed by [place] [address] CLIA: [id number] [employer] Agent: Twin Marley M.D. Magnesiumon 09-24-2017 Magnesium mass conc 2.2 mg/dL Normal 1.6-2.4 [facility] Comment on above: Performed By: #### P T #### Unless otherwise noted, all testing performed by [place] [address] CLIA: [id number] [employer] Agent: Twin Marley M.D. Basic Metabolic Panelon 09-12 Calcium mass conc 8.3 mg/dL Low 8.4-10.2 [facility] Comment on above: Performed By: #### P T #### Unless otherwise noted, all testing performed by [place] [address] CLIA: [id number] [employer] Control Agent: Twin Marley M.D. Chloride molar conc 109 mmol/L High 98-108 [facility] Comment on above: Performed By: #### P T #### Unless otherwise noted, all testing performed by [place] [address] CLIA: [id number] [employer] Control Agent: Twin Marley M.D. CO2 molar conc 26 mmol/L Normal 21-[address] [facility] Comment on above: Performed By: #### P T #### Unless otherwise noted, all testing performed by [place] [address] CLIA: [id number] [employer] Control Agent: Twin Marley M.D. Creatinine mass conc 1.12 mg/dL Normal 0.50-1.30 [facility] Comment on above: Performed By: #### P T #### Unless otherwise noted, all testing performed by [facility] [place] [address] CLIA: [id number] [employer] Control Agent: Twin Marley M.D. GFR/1.73 sq M predicted among blacks MDRD vol rate/area (S/P/Bld) mL/min/{1.73_m2} Normal [facility] Comment on above: Result Comment: Afri can [place] African GFR Calc Performed By: #### P T #### Unless otherwise noted, all testing performed by [place] [address] CLIA: [id number] [employer] Control Agent: Twin Marley M.D. GFR/1.73 sq M predicted among non-blacks MDRD vol rate/area (S/P/Bld) mL/min/{1.73_m2} Normal [facility] Comment on above: Result Comment: Non- GFR [...] Unless otherwise noted, all testing performed by [place] [address] CLIA: [id number] [employer] Agent: Twin Marley M.D. Glucose mass conc 94 mg/dL Normal 70-99 [facility] Comment on above: Result Comment: This test result might be falsely depressed or falsely elevated on samples drawn from patients taking Sulfasalazine and Sulfapyridine. Venipuncture should occur prior to taking either of these drugs. Performed By: #### P T #### Unless otherwise noted, all testing performed by [place] [address] CLIA: [id number] [employer] Agent: Twin Marley M.D. Potassium molar conc 4.0 mmol/L Normal 3.5-5.1 [facility] Comment on above: Performed By: #### P T #### Unless otherwise noted, all testing performed by [place] [address] CLIA: [id number] [employer] Control Agent: Twin Marley M.D. Sodium molar conc 140 mmol/L Normal 135-145 [facility] Comment on above: Performed By: #### P T #### Unless otherwise noted, all testing performed by [place] [address] CLIA: [id number] [employer] Control Agent: Twin Marley M.D. Urea nitrogen mass conc 17 mg/dL Normal 8-25 [facility] Comment on above: Performed By: #### P T #### Unless otherwise noted, all testing performed by [place] [address] CLIA: [id number] [employer] Agent: Twin Marley M.D. CBC w/o Diffon 09-23-2017 Erythrocyte distribution width Ratio (RBC) 15.1 % High 10-14.[address] [facility] Comment on above: Performed By: #### P T #### Unless otherwise noted, all testing performed by [place] [address] CLIA: [id number] [employer] Control Agent: Twin Marley M.D. Hematocrit Volume Fraction (Bld) 46.6 % Normal 37.9-49.[address] [facility] Comment on above: Performed By: #### P T #### Unless otherwise noted, all testing performed by [address] [address] CLIA: [id number] [employer] Agent: Twin Marley M.D. Hemoglobin mass conc (Bld) 15.5 g/dL Normal 12.9-16.[address] [facility] Comment on above: Performed By: #### P T #### Unless otherwise noted, all testing performed by [place] [address] CLIA: [id number] [employer] Agent: Twin Marley M.D. MCH Entitic mass (RBC) 28.2 pg Normal 27.7-34.6 [facility] Comment on above: Performed By: #### P T #### Unless otherwise noted, all testing performed by [place] [address] CLIA: [id number] [employer] Balance Control Agent: Twin Marley M.D. MCHC mass conc (RBC) 33.3 g/dL Normal 32.9-35.5 [facility] Comment on above: Performed By: #### P T #### Unless otherwise noted, all testing performed by [place] [address] CLIA: [id number] [employer] Control Agent: Twin Marley M.D. MCV Entitic volume (RBC) 84.5 fL Normal 82.8-99.[address] [facility] Comment on above: Performed By: #### P T #### Unless otherwise noted, all testing performed by [place] [address] CLIA: [id number] [employer] Control Agent: Twin Marley M.D. Platelet mean volume Entitic volume (Bld) 8.4 fL Normal 6.6-10.[address] [facility] Comment on above: Performed By: #### P T #### Unless otherwise noted, all testing performed by [place] [address] CLIA: [id number] [employer] Control Agent: Twin Marley M.D. Platelets #/vol (Bld) 269 K/mcL Normal 139-354 [facility] Comment on above: Performed By: #### P T #### Unless otherwise noted, all testing performed by [place] [address] CLIA: [id number] [employer] Agent: Twin Marley M.D. RBC #/vol (Bld) 5.52 M/mcL High 4.0-5.5 [facility] Comment on above: Performed By: #### P T #### Unless otherwise noted, all testing performed by [place] [address] CLIA: [id number] [employer] Balance Control Agent: Twin Marley M.D. WBC #/vol (Bld) 11.3 K/mcL High 3.6-10.4 [facility] Comment on above: Performed By: #### P T #### Unless otherwise noted, all testing performed by [place] [address] CLIA: [id number] [employer] Control Agent: Twin Marley M.D. CHEST (ONE VIEW ONLY)on 09-12 CHEST (ONE VIEW ONLY) Final Report Accession No: [id number] Performed: Sep 23 2017 4:18PM Examination: CHEST (ONE VIEW ONLY) PORTABLE CHEST: COMPARISON: Two-view chest from 09/11/2017. REASON FOR STUDY: Chest pain. REPORT: The lungs are clear and well aerated. No effusion, nodule or pneumothorax is noted. The diaphragm and bony elements are intact. No infiltrate is noted. IMPRESSION: Nonacute portable chest. Interpreting Physician: BI BAUER D.O. Trans: istumb : cc: Normal [facility] Cardiac Troponin-Ion 018 Troponin I.cardiac mass conc ng/mL Normal < 45.[address] [facility] Comment on above: Result Comment: Elev [...] Unless otherwise noted, all testing performed by [place] [address] CLIA: [id number] [employer] Agent: Twin Marley M.D. Troponin I.cardiac mass conc No Biomarker evidence of myocardial injury within the past 14 hours. Normal [facility] Comment on above: Performed By: #### P T #### Unless otherwise noted, all testing performed by [place] [address] CLIA: [id number] [employer] Agent: Twin Marley M.D. Cardiac Troponin-Ion 09-12 Troponin I.cardiac mass conc ng/mL Normal < [address] [facility] Comment on above: Result Comment: Elev [...] Unless otherwise noted, all testing performed by [place] [address] CLIA: [id number] [employer] Control Agent: Twin Ayaka, M.D. History And Physical-Dictate [email or web address] 09-23-2017 History And Physical-Dictated [facility] Blaine [place]N. [place] [id number] NAME FERNANDO HELTON [facility] [id number] 1970 ADMIT HISTORY AND PHYSICAL CHIEF COMPLAINT Chest pain. HISTORY OF PRESENT ILLNESS 47-year-old male with past medical history of coronary disease, status post NH in 2012, with stent in 2014. Saw [...] Gastrointestinal prophylaxis. MD Pina PRADHAN 09/23/2017 20:41 [id number] T 09/23/2017 21:07 AFS/MODL Electronically Signed By Sofie Daigle M.D. on 27 Sep 2017 19:09:11 GMT Normal [facility] Partial Thromboplastin Timeo n 09-23-2017 aPTT Coag time (Bld) 28 s Normal 23.0-34.0 [facility] Comment on above: Result Comment: Rosemary sauceda therapeutic range for PTT is 68-104 sec. Performed By: #### P T #### Unless otherwise noted, all testing performed by [place] [id number] CLIA: [id number] [employer] Agent: Twin Marley M.D. Protimeon 09-23-2017 INR Coag RelTime (PPP) 0.94 {INR} Normal [facility] [facility] Comment on above: Result Comment: The [employer] recommended therapeutic range for Warfarin (Coumadin) therapy goals: PROPHYLAXIS/TREATMENT of: INR Venous Thrombosis, Pulmonary Embolism 2.0-3.0 Prevention of VTE (Orthopedic Surgery) 2.0-3.0 Atrial Fibrillation 2.0-3.0 Myocardial Infarction 2.0-3.0 Mechanical Prosthetic Heart Valves (Aortic position) 2.0-3.0 Mechanical Prosthetic Heart Valves (Mitral Position) 2.5-3.5 [employer] evidence-based clinical practice guidelines. CHEST. 2012 (9th ed) Performed By: #### E DCTNI, PTT, PT, CBCWOD, CHEM8 #### Unless otherwise noted, all testing performed by [place] [address] CLIA: [id number] [employer] Control Agent: Twin Marley M.D. Prothrombin time (PT) Coag time (PPP) 12.2 s Normal 11.8-14.[address] [facility] Comment on above: Performed By: #### E DCTNI, PTT, PT, CBCWOD, CHEM8 #### Unless otherwise noted, all testing performed by [place] [address] CLIA: [id number] [employer] Balance Control Agent: Twin Marley M.D. Culture, Strep (Throat)on Culture, Strep (Throat) Test Name: Cultu re, Strep (Throat) Culture Status: Final Culture Report: No Group A streptococci isolated. Micro Source: Throat Normal [facility] Comment on above: Performed By: #### S TRCUL #### Unless otherwise noted, all testing performed by [place] [address] CLIA: [id number] [employer] Control Agent: Twin Marley M.D. FS BNP (B-NatriureticPeptide )on 09-11-2017 Natriuretic peptide B mass conc (Bld) 51.5 pg/mL Normal < [address] [facility] Comment on above: Result Comment: BNP may be falsely elevated in patients taking ENTRESTO. Testing performed at [address]; Medical Assistant Financial Accountant Orion Gusman M.D. Performed By: #### F SBNP #### Unless otherwise noted, all testing performed by [place] [address] CLIA: [id number] [employer] Control Agent: Twin Marley M.D. FS Basic Metabolic Panelon 0 09-11-2017 Calcium mass conc 9.2 mg/dL Normal 8.4-10.2 [facility] Comment on above: Performed By: #### F SBMET #### Unless otherwise noted, all testing performed by [place] [address] CLIA: [id number] [employer] Control Agent: Twin Marley M.D. Chloride molar conc 107 mmol/L Normal 98-108 [facility] Comment on above: Performed By: #### F SBMET #### Unless otherwise noted, all testing performed by [place] [address] CLIA: [id number] [employer] Control Agent: Twin Marley M.D. CO2 molar conc 26 mmol/L Normal 21-[address] [facility] Comment on above: Performed By: #### F SBMET #### Unless otherwise noted, all testing performed by [place] [phone] CLIA: [id number] [employer] Control Agent: Twin Marley M.D. Creatinine mass conc 1.1 mg/dL Normal 0.50-1.30 [facility] Comment on above: Performed By: #### F SBMET #### Unless otherwise noted, all testing performed by [place] [phone] CLIA: [id number] [employer] Control Agent: Twin Marley M.D. Glucose mass conc 96 mg/dL Normal 65-99 [facility] Comment on above: Performed By: #### F SBMET #### Unless otherwise noted, all testing performed by [place] [phone] CLIA: [id number] [employer] Control Agent: Twin Malrey M.D. Potassium molar conc 3.9 mmol/L Normal 3.5-5.1 [facility] Comment on above: Performed By: #### F SBMET #### Unless otherwise noted, all testing performed by [place] [address] CLIA: [id number] [employer] Control Agent: Twin Marley M.D. Sodium molar conc 139 mmol/L Normal 135-145 [facility] Comment on above: Performed By: #### F SBMET #### Unless otherwise noted, all testing performed by [place] [address] CLIA: [id number] [employer] Balance Control Agent: Twin Marley M.D. Testing performed [facility] Comment on above: Result Comment: Test ing performed at [facility], [address] [place] [address]; Medical Assistant Financial Accountant Orion Gusman M.D. Performed By: #### F SBMET #### Unless otherwise noted, all testing performed by [place] [address] CLIA: [id number] [employer] Control Agent: Twin Marley M.D. Urea nitrogen mass conc 15 mg/dL Normal 8-25 [facility] Comment on above: Performed By: #### F SBMET #### Unless otherwise noted, all testing performed by [place] [address] CLIA: [id number] [employer] Control Agent: Twin Marley M.D. FS CBCon 09-11-2017 Erythrocyte distribution width Ratio (RBC) 15.2 % High 11.6-14.[address] [facility] Comment on above: Performed By: #### F SCBC #### Unless otherwise noted, all testing performed by [place] [address] CLIA: [id number] [employer] Control Agent: Twin Marley M.D. Hematocrit Volume Fraction (Bld) 43.2 % Normal 41.0-53.[address] [facility] Comment on above: Performed By: #### F SCBC #### Unless otherwise noted, all testing performed by [place] [address] CLIA: [id number] [employer] Control Agent: Twin Marley M.D. Hemoglobin mass conc (Bld) 14.2 g/dL Normal 13.5-17.[address] [facility] Comment on above: Performed By: #### F SCBC #### Unless otherwise noted, all testing performed by [place] [phone] CLIA: [id number] [employer] Control Agent: Twin Marley M.D. Lymphocytes #/vol (Bld) 4.2 K/mcL High 0.90-4.00 [facility] Comment on above: Performed By: #### F SCBC #### Unless otherwise noted, all testing performed by [place] [phone] CLIA: [id number] [employer] Control Agent: Twin Marley M.D. Lymphocytes/100 WBC (Bld) 39.2 % Normal [facility] Comment on above: Performed By: #### F SCBC #### Unless otherwise noted, all testing performed by [place] [address] CLIA: [id number] [employer] Control Agent: Twin Marley M.D. MCH Entitic mass (RBC) 28.4 pg Normal 26.0-34.0 [facility] Comment on above: Performed By: #### F SCBC #### Unless otherwise noted, all testing performed by [place] [address] CLIA: [id number] Weight And Balance Control Agent: Twin Marley M.D. MCHC mass conc (RBC) 32.9 g/dL Normal 31.0-37.0 [facility] Comment on above: Performed By: #### F SCBC #### Unless otherwise noted, all testing performed by [place] [address] CLIA: [id number] [employer] Balance Control Agent: Twin Marley M.D. MCV Entitic volume (RBC) 86.4 fL Normal 80-[address] [facility] Comment on above: Performed By: #### F SCBC #### Unless otherwise noted, all testing performed by [place] [address] CLIA: [id number] [employer] Control Agent: Twin Marley M.D. Neutrophils #/vol (Bld) 5.4 K/mcL Normal 1.70-7.00 [facility] Comment on above: Performed By: #### F SCBC #### Unless otherwise noted, all testing performed by [place] [address] CLIA: [id number] [employer] Control Agent: Twin Marley M.D. Platelet mean volume Entitic volume (Bld) 11.6 fL Normal 9.0-15.[address] [facility] Comment on above: Performed By: #### F SCBC #### Unless otherwise noted, all testing performed by [place] [address] CLIA: [id number] [employer] Control Agent: Twin Marley M.D. Platelets #/vol (Bld) 271 K/mcL Normal 150-400 [facility] Comment on above: Performed By: #### F SCBC #### Unless otherwise noted, all testing performed by [place] [address] CLIA: [id number] [employer] Balance Control Agent: Twin Marley M.D. RBC #/vol (Bld) 5.00 M/mcL Normal 4.50-5.90 [facility] Comment on above: Performed By: #### F SCBC #### Unless otherwise noted, all testing performed by [place] [address] CLIA: [id number] [employer] Control Agent: Twin Marley M.D. Segmented Neut % 49.5 % Normal [facility] Comment on above: Performed By: #### F SCBC #### Unless otherwise noted, all testing performed by [place] [address] CLIA: [id number] [employer] Control Agent: Twin Marley M.D. Testing performed [facility] FSED Normal [facility] Comment on above: Result Comment: Test ing performed at [address]; Medical Assistant Financial Accountant Orion Gusman M.D. Performed By: #### F SCBC #### Unless otherwise noted, all testing performed by [place] [address] CLIA: [id number] [employer] Control Agent: Twin Marley M.D. WBC #/vol (Bld) 10.8 K/mcL Normal 4.5-11.0 [facility] Comment on above: Performed By: #### F SCBC #### Unless otherwise noted, all testing performed by [address] [place], [place] [address] CLIA: [id number] [employer] Control Agent: Twin Marley M.D. FS D-Dimeron 09-11-2017 FS D-Dimer < 100 Normal < [address] [facility] Comment on above: Result Comment: This test is used as an aid in the assessment and evaluation of patients suspected of having disseminated intravascular coagulation or thromboembolitic events including pulmonary embolism. It should not be used as absolute evidence of PE or DVT. Testing performed at [facility], [address] [place] [address]; Medical Assistant Financial Accountant Orion Gusman M.D. Performed By: #### F SDDIMR #### Unless otherwise noted, all testing performed by [place] [address] CLIA: [id number] [employer] Control Agent: Twin Marley M.D. FS Pochi instrument alerton 09-11-2017 FS Pochi instrument alert Invalid Results Normal [facility] Comment on above: Result Comment: Poss ible interfering substances and/or clinically significant abnormalities that require smear review. Recommend re-draw, reordering as CBC w/Diff and sending to [facility] laboratory. Performed By: #### F SPOCHI #### Unless otherwise noted, all testing performed by [place] [address] CLIA: [id number] [employer] Balance Control Agent: Twin Marley M.D. FS Rapid Strep A Scrnon 08-14 S. pyogenes Ag IA Ql (Unsp spec) Negative Normal Negative [facility] Comment on above: Result Comment: Nega tive rapid antigen tests will be followed-up with a culture. Rapid test procedural control acceptable. Testing performed at [facility], [address] [place] [address]; Medical Assistant Financial Accountant Orion Gusman M.D. Performed By: #### F SSTREP #### Unless otherwise noted, all testing performed by [facility] [address] [facility]. [place], [place] [address] CLIA: [id number] [employer] Control Agent: Twin Marley M.D. FS Troponin Ion 09-11-2017 Troponin I.cardiac mass conc ng/mL Normal < 0.[address] [facility] Comment on above: Result Comment: Test ing performed at [facility], [address] [place] [address]; Medical Assistant Financial Accountant Orion Gusman M.D. Performed By: #### F STROPI #### Unless otherwise noted, all testing performed by [place] [id number] CLIA: [id number] [employer] Balance Control Agent: Twin Marley M.D. Protimeon 09-11-2017 INR Coag RelTime (PPP) CANCEL PER [facility], CREDIT FORM COMPLETED Normal [facility] Comment on above: Result Comment: Comm ent deleted 09/11/2017 18:47 by LEVONENNE: The [employer] recommended therapeutic range for Warfarin (Coumadin) therapy goals: PROPHYLAXIS/TREATMENT of: INR Venous Thrombosis, Pulmonary Embolism 2.0-3.0 Prevention of VTE (Orthopedic Surgery) 2.0-3.0 Atrial Fibrillation 2.0-3.0 Myocardial Infarction 2.0-3.0 Mechanical Prosthetic Heart Valves (Aortic position) 2.0-3.0 Mechanical Prosthetic Heart Valves (Mitral Position) 2.5-3.5 [employer] evidence-based clinical practice guidelines. CHEST. 2012 (9th ed) [employer] recommended therapeutic range for Warfarin (Coumadin) therapy goals: PROPHYLAXIS/TREATMENT of: INR Venous Thrombosis, Pulmonary Embolism 2.0-3.0 Prevention of VTE (Orthopedic Surgery) 2.0-3.0 Atrial Fibrillation 2.0-3.0 Myocardial Infarction 2.0-3.0 Mechanical Prosthetic Heart Valves (Aortic position) 2.0-3.0 Mechanical Prosthetic Heart Valves (Mitral Position) 2.5-3.5 [employer] evidence-based clinical practice guidelines. CHEST. 2012 (9th ed) Test INR with result of CANCEL PER [facility], CREDIT FORM COMPLETED was originally reported as 1.1 and was changed on 09/11/2017 18:47 by JENN Performed By: #### P T #### Unless otherwise noted, all testing performed by [address] [address] CLIA: [id number] [employer] Balance Control Agent: Twin Marley M.D. Prothrombin time (PT) Coag time (PPP) CANCEL PER [facility], CREDIT FORM COMPLETED Normal 11.8-14.[address] [facility] Comment on above: Result Comment: Test Protime with result of CANCEL PER [facility], CREDIT FORM COMPLETED was originally reported as 9.6 and was changed on 09/11/2017 18:47 by JENN Performed By: #### P T #### Unless otherwise noted, all testing performed by [place] [address] CLIA: [id number] [employer] Balance Control Agent: Twin Marley M.D. Blood Smear Reviewon 017 Blood Smear Review See Pathology Report. [facility] RBC morphology finding Nom (Bld) Normal Normal [facility] CBC and Differentialon 10-26 Basophils #/vol (Bld) 0.1 K/mcL 0 - 0.2 [facility] Basophils/100 WBC (Bld) 0.6 % [facility] Eosinophils #/vol (Bld) 0.8 K/mcL High 0 - 0.5 [facility] Eosinophils/100 WBC (Bld) 7.0 % [facility] Erythrocyte distribution width Ratio (RBC) 15.2 % High 10 - 14.3 % [facility] Hematocrit Volume Fraction (Bld) 46.0 % 37.9 - 49.2 % [facility] Hemoglobin mass conc (Bld) 15.3 g/dL 12.9 - 16.9 g/dL [facility] Interpretation and review of laboratory results Abnormal [facility] Lymphocytes #/vol (Bld) 3.9 K/mcL High 0.9 - 3.6 [facility] Lymphocytes/100 WBC (Bld) 36.3 % [facility] MCH Entitic mass (RBC) 27.6 pg Low 27.7 - 34.6 pg [facility] MCHC mass conc (RBC) 33.2 g/dL 32.9 - 35.5 g/dL [facility] MCV Entitic volume (RBC) 83.1 fL 82. 8 - 99.3 [facility] Monocytes #/vol (Bld) 0.7 K/mcL High 0.2 - 0.6 [facility] Monocytes/100 WBC (Bld) 6.9 % [facility] Neutrophils #/vol (Bld) 5.3 K/mcL 1.4 - 6.8 [facility] Platelet mean volume Entitic volume (Bld) 8.9 fL 6.6 - 10.8 [facility] Platelets #/vol (Bld) 260 K/mcL 139 - 354 [facility] RBC #/vol (Bld) 5.53 M/mcL High 4.0 - 5.5 [facility] Segmented Neut 49.2 % [facility] WBC #/vol (Bld) 10.8 K/mcL High 3.6 - 10.4 [facility] CRP, C-Reactive Proteinon CRP - Inflammation 15.2 mg/L High 0 - 10 mg/L [facility] LDHon 10-26-2016 LDH 158 U/L 100 - 250 U/L [facility] Sedimentation Rateon 017 Sed Rate 10 MM/hr. 0 - 15 [facility] CBC and Differentialon 10-12 Basophils #/vol (Bld) 0.1 K/mcL 0 - 0.2 [facility] Basophils/100 WBC (Bld) 0.6 % [facility] Eosinophils #/vol (Bld) 0.5 K/mcL 0 - 0.5 [facility] Eosinophils/100 WBC (Bld) 4.3 % [facility] Erythrocyte distribution width Ratio (RBC) 14.8 % High 10 - 14.3 % [facility] Hematocrit Volume Fraction (Bld) 48.0 % 37.9 - 49.2 % [facility] Hemoglobin mass conc (Bld) 15.8 g/dL 12.9 - 16.9 g/dL [facility] Interpretation and review of laboratory results Abnormal [facility] Lymphocytes #/vol (Bld) 4.6 K/mcL High 0.9 - 3.6 [facility] Lymphocytes/100 WBC (Bld) 36.3 % [facility] MCH Entitic mass (RBC) 27.5 pg Low 27.7 - 34.6 pg [facility] MCHC mass conc (RBC) 33.0 g/dL 32.9 - 35.5 g/dL [facility] MCV Entitic volume (RBC) 83.4 fL 82. 8 - 99.3 [facility] Monocytes #/vol (Bld) 1.0 K/mcL High 0.2 - 0.6 [facility] Monocytes/100 WBC (Bld) 8.2 % [facility] Neutrophils #/vol (Bld) 6.4 K/mcL 1.4 - 6.8 [facility] Platelet mean volume Entitic volume (Bld) 9.5 fL 6.6 - 10.8 [facility] Platelets #/vol (Bld) 252 K/mcL 139 - 354 [facility] RBC #/vol (Bld) 5.75 M/mcL High 4.0 - 5.5 [facility] Segmented Neut 50.6 % [facility] WBC #/vol (Bld) 12.7 K/mcL High 3.6 - 10.4 [facility] TSHon 10-12-2016 Thyrotropin Qn 1.58 uIU/mL 0.320 - 5.000 [facility] Vitamin B12 and Folateson Cobalamin (Vitamin B12) mass conc 375 pg/mL 193 - 986 pg/mL [facility] Folate 18.2 ng/mL High 3.1 - 17.5 ng/mL [facility] CBC and Differentialon 09-18 Basophils #/vol (Bld) 0.1 K/mcL 0 - 0.2 [facility] Basophils/100 WBC (Bld) 0.7 % [facility] Eosinophils #/vol (Bld) 0.5 K/mcL 0 - 0.5 [facility] Eosinophils/100 WBC (Bld) 5.7 % [facility] Erythrocyte distribution width Ratio (RBC) 14.8 % High 10 - 14.3 % [facility] Hematocrit Volume Fraction (Bld) 46.2 % 37.9 - 49.2 % [facility] Hemoglobin mass conc (Bld) 15.5 g/dL 12.9 - 16.9 g/dL [facility] Interpretation and review of laboratory results Abnormal [facility] Lymphocytes #/vol (Bld) 3.2 K/mcL 0.9 - 3.6 [facility] Lymphocytes/100 WBC (Bld) 33.3 % [facility] MCH Entitic mass (RBC) 27.9 pg 27.7 - 34.6 pg [facility] MCHC mass conc (RBC) 33.6 g/dL 32.9 - 35.5 g/dL [facility] MCV Entitic volume (RBC) 83.2 fL 82. 8 - 99.3 [facility] Monocytes #/vol (Bld) 0.7 K/mcL High 0.2 - 0.6 [facility] Monocytes/100 WBC (Bld) 7.3 % [facility] Neutrophils #/vol (Bld) 5.1 K/mcL 1.4 - 6.8 [facility] Platelet mean volume Entitic volume (Bld) 8.8 fL 6.6 - 10.8 [facility] Platelets #/vol (Bld) 252 K/mcL 139 - 354 [facility] RBC #/vol (Bld) 5.56 M/mcL High 4.0 - 5.5 [facility] Segmented Neut 53.0 % [facility] WBC #/vol (Bld) 9.6 K/mcL 3.6 - 10.4 [facility] Comprehensive Metabolic Pane sangeetha 09-18-2016 Albumin mass conc 4.4 g/dL 3.5 - 5 g/dL [facility] ALP enzyme act/vol 69 U/L 25 - 100 U/L [facility] ALT enzyme act/vol 22 U/L 10 - 40 U/L [facility] Comment on above: This test result urban ht be falsely depressed or falsely elevated on samples drawn from patients taking Sulfasalazine and Sulfapyridine. Venipuncture should occur prior to taking either of these drugs. AST enzyme act/vol 19 U/L 10 - 40 U/L [facility] Bilirubin mass conc 0.8 mg/dL 0.3 - 1. 2 mg/dL [facility] Calcium mass conc 9.4 mg/dL 8.4 - 10.2 mg/dL [facility] Chloride molar conc 106 mmol/L 99 - 111 mmol/L [facility] CO2 molar conc 25 mmol/L 23 - 32 mmol/L [facility] Creatinine mass conc 0.98 mg/dL 0.6 - 1 .2 mg/dL [facility] GFR/1.73 sq M predicted among blacks MDRD vol rate/area (S/P/Bld) mL/min/{1.73_m2} ml/min/1.7 3sq.m [facility] GFR/1.73 sq M predicted among non-blacks MDRD vol rate/area (S/P/Bld) mL/min/{1.73_m2} ml/min/1.7 3sq.m [facility] Comment on above: eGFR is an [...] 108 mg/dL High 70 - 99 mg/dL [facility] Potassium molar conc 4.3 mmol/L 3.5 - 5 .1 mmol/L [facility] Protein mass conc 6.9 g/dL 6.4 - 8.3 g/dL [facility] Sodium molar conc 139 mmol/L 136 - 145 mmol/L [facility] Urea nitrogen mass conc 16 mg/dL 6 - 20 mg/dL [facility] Lipid Panelon 09-18-2016 Cholesterol in HDL mass conc 43 mg/dL 28 - 75 mg/dL [facility] Cholesterol in LDL mass conc 105 mg/dL <130 [facility] Cholesterol in VLDL mass conc 30 mg/dL 5 - 40 mg/dL [facility] Cholesterol mass conc 178 mg/dL 112 - 200 mg/dL [facility] Cholesterol.total/Choles terol in HDL mass ratio 4.1 {ratio} 3.3 - 5.0 [facility] Comment on above: Male Coronary Heart Disease Risk Factor (CHDRF): Average risk= 5.0 1/2 Average risk= 3.4 2 times Average risk= 9.6 Triglyceride mass conc 151 mg/dL High 35 - 150 mg/dL [facility] T4, Freeon 09-18-2016 T4 free mass conc 1.37 ng/dL 0.76 - 1.79 ng/dL [facility] TSHon 09-18-2016 Thyrotropin Qn 0.714 uIU/mL 0.350 - 5.500 [facility] Comment on above: Please note that [...] Diastolic blood pressure 94 mm[Hg] DO Jasen OrellanaCrowdnetic Work Phone: [facility] 12-07-2022 18:38-0400 Heart rate 95 /min DO Jasen Stylyt Work Phone: [facility] 12-07-2022 18:38-0400 Respiratory rate 20 /min DO Jasen OrellanaCrowdnetic Work Phone: [facility] 12-07-2022 18:38-0400 SaO2% (BldA) [Mass fraction] 94 % DO Jasen Campbell Work Phone: [facility] 12-07-2022 18:38-0400 Systolic blood pressure 172 mm[Hg] DO Jasen Campbell Work Phone: [facility] 12-07-2022 14:28-0400 Body temperature 98.4 [degF] DO Jasen Campbell Work Phone: [facility] 12-07-2022 13:37-0400 Body height 167.64 cm DO Jasen Campbell Work Phone: [facility] 12-07-2022 13:37-0400 Body weight 113.8 kg DO Jasen Campbell Work Phone: [facility] 12-27-2021 07:16-0500 Body height 165.1 cm Moises Patel MD Work Phone: [facility] 12-27-2021 07:16-0500 Body mass index (BMI) [Ratio] 42.7 kg/m2 Moises Patel MD Work Phone: [facility] [employer] [facility] 12-27-2021 07:16-0500 Body weight 116.39 kg Moises Patel MD [facility] Phone: [facility] 12-27-2021 07:16-0500 Diastolic blood pressure 88 mm[Hg] Moises Patel MD Work Phone: [employer] [facility] 12-27-2021 07:16-0500 Heart rate 75 /min Moises Patel MD Work Phone: [employer] [facility] 12-27-2021 07:16-0500 SaO2% (BldA) [Mass fraction] 95 % Moises Patel MD Work Phone: [employer] 12-27-2021 07:16-0500 Systolic blood pressure 132 mm[Hg] Moises Patel MD Work Phone: [employer] [facility] 09-15-2020 09:03-0400 Body height 165.1 cm Moises Patel MD Work Phone: [employer] 09-15-2020 09:03-0400 Body mass index (BMI) [Ratio] 47.93 kg/m2 Moises Patel MD Work Phone: [employer] [facility] 09-15-2020 09:03-0400 Body temperature 97.81 [degF] Moises Patel MD Work Phone: [employer] [facility] 09-15-2020 09:03-0400 Body weight 130.64 kg Moises Patel MD Work Phone: [employer] [facility] 09-15-2020 09:03-0400 Diastolic blood pressure 92 mm[Hg] Moises Patel MD Work Phone: [employer] [facility] 09-15-2020 09:03-0400 Heart rate 80 /min Moises Patel MD Work Phone: [employer] [facility] 09-15-2020 09:03-0400 SaO2% (BldA) [Mass fraction] 94 % Moises Patel MD Work Phone: [employer] [facility] 09-15-2020 09:03-0400 Systolic blood pressure 138 mm[Hg] Moises Patel MD Work Phone: [employer] 06-02-2020 08:21-0400 Body height 167.6 cm Anita Rowland MD Work Phone: [facility] 06-02-2020 08:21-0400 Body mass index (BMI) [Ratio] 46 kg/m2 Anita Rowland MD Work Phone: [facility] 06-02-2020 08:21-0400 Body weight 129.28 kg Anita Rowland MD Work Phone: [facility] 06-02-2020 08:12-0400 Body temperature 98.01 [degF] Anita Rowland MD Work Phone: [facility] 06-02-2020 08:12-0400 Diastolic blood pressure 82 mm[Hg] Anita Rowland MD Work Phone: [facility] 06-02-2020 08:12-0400 Heart rate 74 /min Anita Rowland MD Work Phone: [facility] 06-02-2020 08:12-0400 Respiratory rate 16 /min Anita Rowland MD Work Phone: [facility] 06-02-2020 08:12-0400 SaO2% (BldA) [Mass fraction] 93 % Anita Rowland MD Work Phone: [facility] 06-02-2020 08:12-0400 Systolic blood pressure 117 mm[Hg] Anita Rowland MD Work Phone: [facility] 05-28-2020 16:05-0400 Body height 167.6 cm Anita Rowland MD Work Phone: [facility] 05-28-2020 16:05-0400 Body mass index (BMI) [Ratio] 43.28 kg/m2 Anita Rowland MD Work Phone: [facility] 05-28-2020 16:05-0400 Body weight 121.56 kg Anita Rowland MD Work Phone: [facility] 05-28-2020 16:05-0400 Diastolic blood pressure 88 mm[Hg] Anita Rowland MD Work Phone: [facility] 05-28-2020 16:05-0400 Heart rate 78 /min Anita Rowland MD Work Phone: [facility] 05-28-2020 16:05-0400 SaO2% (BldA) [Mass fraction] 96 % Anita Rowland MD Work Phone: [facility] 05-28-2020 16:05-0400 Systolic blood pressure 149 mm[Hg] Anita Rowland MD Work Phone: [facility] 05-28-2020 07:59-0400 Body height 167.6 cm Anita Rowland MD Work Phone: [facility] 05-28-2020 07:59-0400 Body mass index (BMI) [Ratio] 42.01 kg/m2 Anita Rowland MD Work Phone: [facility] 05-28-2020 07:59-0400 Body weight 118 kg Anita Rowland MD Work Phone: [facility] 05-28-2020 07:59-0400 Diastolic blood pressure 79 mm[Hg] Anita Rowland MD Work Phone: [facility] 05-28-2020 07:59-0400 Heart rate 80 /min Anita Rowland MD Work Phone: [facility] 05-28-2020 07:59-0400 Systolic blood pressure 123 mm[Hg] Anita Rowland MD Work Phone: [facility] 10-16-2019 15:34-0400 BP Diastolic 90 mm[Hg] [facility] 10-16-2019 15:34-0400 BP Systolic 137 mm[Hg] [facility] 10-16-2019 15:34-0400 Pulse (Heart Rate) 102 /min [facility] 10-16-2019 15:34-0400 Pulse Oximetry 100 % [facility] 10-16-2019 12:05-0400 Body Temperature 97.59 [degF] [facility] 10-16-2019 12:05-0400 Respiratory Rate 16 /min [facility] 10-16-2019 01:23-0400 BMI (Body Mass Index) 41.99 kg/m2 [facility] 10-16-2019 01:23-0400 Body weight 118 kg [facility] 10-16-2019 01:23-0400 Height 167.6 cm [facility] 10-15-2019 14:06-0400 BMI (Body Mass Index) 42.79 kg/m2 Anita Rowland [facility] 10-15-2019 14:06-0400 Body weight 120.25 kg Anita Etiennedavid [facility] 10-15-2019 14:06-0400 BP Diastolic 85 mm[Hg] Anita Jaimiedavid [facility] 10-15-2019 14:06-0400 BP Systolic 142 mm[Hg] Anita Jaimiedavid [facility] 10-15-2019 14:06-0400 Height 167.6 cm Anita Eatdavid [facility] 10-15-2019 14:06-0400 Pulse (Heart Rate) 83 /min Anita Rowland [facility] 10-15-2019 14:06-0400 Pulse Oximetry 95 % Anita Rowland [facility] 09-23-2019 13:07-0400 BP Diastolic 104 mm[Hg] [facility] 09-23-2019 13:07-0400 BP Systolic 155 mm[Hg] [facility] 09-23-2019 13:07-0400 Pulse (Heart Rate) 65 /min [facility] 09-23-2019 13:01-0400 Pulse Oximetry 97 % [facility] 09-23-2019 11:28-0400 Respiratory Rate 16 /min [facility] 09-23-2019 08:44-0400 Body Temperature 97.81 [degF] [facility] 09-22-2019 12:02-0400 BMI (Body Mass Index) 43.66 kg/m2 [facility] 09-22-2019 12:02-0400 Body weight 122.7 kg [facility] 09-22-2019 12:02-0400 Height 167.6 cm [facility] 04-03-2019 15:09-0500 BMI (Body Mass Index) 41.97 kg/m2 [facility] 04-03-2019 15:09-0500 Body weight 117.94 kg [facility] 04-03-2019 15:09-0500 BP Diastolic 85 mm[Hg] [facility] 04-03-2019 15:09-0500 BP Systolic 130 mm[Hg] [facility] 04-03-2019 15:09-0500 Height 167.6 cm [facility] 04-03-2019 15:09-0500 Pulse (Heart Rate) 86 /min [facility] 04-03-2019 15:09-0500 Pulse Oximetry 95 % [facility] 03-11-2019 08:19-0500 BP Diastolic 66 mm[Hg] Torie Westbrook [facility] 03-11-2019 08:19-0500 BP Systolic 122 mm[Hg] Torie Abbottluba [facility] 02-26-2019 13:19-0500 BMI (Body Mass Index) 38.82 kg/m2 Kristin [facility] 02-26-2019 13:19-0500 Body Temperature 98.4 [degF] Kristin [facility] 02-26-2019 13:19-0500 Body weight 109.09 kg Kristin [facility] 02-26-2019 13:19-0500 BP Diastolic 88 mm[Hg] Kristin [facility] 02-26-2019 13:19-0500 BP Systolic 129 mm[Hg] Kristin [facility] 02-26-2019 13:19-0500 Height 167.6 cm Kristin [facility] 02-26-2019 13:19-0500 Pulse (Heart Rate) 93 /min Kristin [facility] 02-26-2019 13:19-0500 Pulse Oximetry 93 % Kristin [facility] 02-26-2019 13:19-0500 Respiratory Rate 16 /min Kristin [facility] 02-26-2019 00:00-0500 BP Diastolic 78 mm[Hg] [facility] 02-26-2019 00:00-0500 BP Systolic 122 mm[Hg] [facility] 02-26-2019 00:00-0500 Pulse (Heart Rate) 79 /min [facility] 02-26-2019 00:00-0500 Pulse Oximetry 97 % [facility] 02-26-2019 00:00-0500 Respiratory Rate 18 /min [facility] 02-25-2019 20:32-0500 BMI (Body Mass Index) 38.25 kg/m2 [facility] 02-25-2019 20:32-0500 Body Temperature 98.01 [degF] [facility] 02-25-2019 20:32-0500 Body weight 107.[address] [facility] 02-25-2019 20:32-[address] [facility] 02-21-2019 09:10-0500 BMI (Body Mass Index) 39.22 kg/m2 Kristin [facility] 02-21-2019 09:10-0500 Body Temperature 97.81 [degF] Kristin [facility] 02-21-2019 09:10-0500 Body weight 110.22 kg Kristin [facility] 02-21-2019 09:10-0500 BP Diastolic 84 mm[Hg] Kristin Walker [facility] 02-21-2019 09:10-0500 BP Systolic 128 mm[Hg] Kristin Walker [facility] 02-21-2019 09:10-0500 Height 167.6 cm Kristin [facility] 02-21-2019 09:10-0500 Pulse (Heart Rate) 77 /min Kristin [facility] 02-21-2019 09:10-0500 Pulse Oximetry 97 % Kristin [facility] 02-13-2019 09:07-0500 BMI (Body Mass Index) 39.38 kg/m2 Kristin [facility] 02-13-2019 09:07-0500 Body Temperature 97.5 [degF] Kristin [facility] 02-13-2019 09:07-0500 Body weight 110.68 kg Kristin [facility] 02-13-2019 09:07-0500 BP Diastolic 78 mm[Hg] Kristin [facility] 02-13-2019 09:07-0500 BP Systolic 115 mm[Hg] Kristin [facility] 02-13-2019 09:07-0500 Height 167.6 cm Kristin [facility] 02-13-2019 09:07-0500 Pulse (Heart Rate) 76 /min Kristin [facility] 02-13-2019 09:07-0500 Pulse Oximetry 95 % Kristin [facility] 02-06-2019 13:05-0500 BMI (Body Mass Index) 39.59 kg/m2 [facility]-06-2019 13:05-0500 Body Temperature 98.2 [degF] Jacob [facility] 02-06-2019 13:05-0500 Body weight 111.27 kg [facility] 02-06-2019 13:05-0500 BP Diastolic 81 mm[Hg] [facility] 02-06-2019 13:05-0500 BP Systolic 124 mm[Hg] [facility] 13:05-0500 Height 167.6 cm Jacob [facility] 02-06-2019 13:05-0500 Pulse (Heart Rate) 97 /min Jacob [facility] 02-06-2019 13:05-0500 Pulse Oximetry 95 % Jacob Cam [facility] 02-06-2019 13:05-0500 Respiratory Rate 17 /min Jacob Cam [facility] 02-04-2019 07:45-0500 Body Temperature 98.1 [degF] [facility] 02-04-2019 07:45-0500 BP Diastolic 91 mm[Hg] [facility] 02-04-2019 07:45-0500 BP Systolic 129 mm[Hg] [facility] 02-04-2019 07:45-0500 Pulse (Heart Rate) 90 /min [facility] 02-04-2019 07:45-0500 Pulse Oximetry 94 % [facility] 02-04-2019 07:45-0500 Respiratory Rate 16 /min [facility] 02-04-2019 05:58-0500 BMI (Body Mass Index) 38.8 kg/m2 [facility] 02-04-2019 05:58-0500 Body weight 109.05 kg [facility] 02-02-2019 18:07-0500 Height 167.6 cm [facility] 02-02-2019 12:08-0500 Respiratory rate 0 /min [facility] 01-31-2019 09:19-0500 BMI (Body Mass Index) 40.66 kg/m2 Kristin [facility] 01-31-2019 09:19-0500 Body Temperature 98.1 [degF] Kristin [facility] 01-31-2019 09:19-0500 Body weight 114.26 kg Kristin [facility] 01-31-2019 09:19-0500 BP Diastolic 89 mm[Hg] Kristin Walker [facility] 01-31-2019 09:19-0500 BP Systolic 123 mm[Hg] Kristin Walker [facility] 01-31-2019 09:19-0500 Height 167.6 cm Kristin [facility] 01-31-2019 09:19-0500 Pulse (Heart Rate) 93 /min Kristin [facility] 01-31-2019 09:19-0500 Pulse Oximetry 94 % Kristin [facility] 01-31-2019 09:19-0500 Respiratory Rate 16 /min Kristin [facility] 01-29-2019 11:46-0500 Body Temperature 97.81 [degF] [facility] 01-29-2019 11:46-0500 BP Diastolic 78 mm[Hg] [facility] 01-29-2019 11:46-0500 BP Systolic 135 mm[Hg] [facility] 01-29-2019 11:46-0500 Pulse (Heart Rate) 83 /min [facility] 01-29-2019 11:46-0500 Pulse Oximetry 95 % [facility] 01-29-2019 11:46-0500 Respiratory Rate 18 /min [facility] 01-29-2019 05:40-0500 BMI (Body Mass Index) 39.86 kg/m2 [facility] 01-29-2019 05:40-0500 Body weight 112.5 kg [facility] Comment on above: standing scale 01-25-2019 13:34-0500 Respiratory rate 0 /min [facility] 01-24-2019 13:25-0500 Respiratory rate 0 /min [facility] 01-24-2019 11:46-0500 Respiratory rate 12 /min [facility] 01-24-2019 10:43-0500 Respiratory rate 12 /min [facility] 01-24-2019 05:00-0500 Height 168 cm [facility] 01-20-2019 10:22-0500 Respiratory rate 0 /min [facility] 01-04-2019 16:55-0500 BMI (Body Mass Index) 40.35 kg/m2 [facility] 01-04-2019 16:55-0500 Body Temperature 97.9 [degF] [facility] 01-04-2019 16:55-0500 Body weight 113.4 kg [facility] 01-04-2019 16:55-0500 BP Diastolic 88 mm[Hg] [facility] 01-04-2019 16:55-0500 BP Systolic 137 mm[Hg] [facility] 01-04-2019 16:55-0500 Height 167.6 cm [facility] 01-04-2019 16:55-0500 Pulse (Heart Rate) 79 /min [facility] 01-04-2019 16:55-0500 Pulse Oximetry 98 % [facility] 01-04-2019 16:55-0500 Respiratory Rate 14 /min [facility] 12-26-2018 15:50-0500 BMI (Body Mass Index) 40.51 kg/m2 [facility] 12-26-2018 15:50-0500 Body weight 113.85 kg [facility] 12-26-2018 15:50-0500 BP Diastolic 87 mm[Hg] [facility] 12-26-2018 15:50-0500 BP Systolic 125 mm[Hg] [facility] 12-26-2018 15:50-0500 Height 167.6 cm [facility] 12-26-2018 15:50-0500 Pulse (Heart Rate) 98 /min [facility] 12-26-2018 15:50-0500 Pulse Oximetry 97 % [facility] 09-27-2018 22:00-0400 BP Diastolic 96 mm[Hg] [facility] 09-27-2018 22:00-0400 BP Systolic 146 mm[Hg] [facility] 09-27-2018 22:00-0400 Pulse (Heart Rate) 91 /min [facility] 09-27-2018 22:00-0400 Respiratory Rate 26 /min [facility] 09-27-2018 19:30-0400 Pulse Oximetry 95 % [facility] 09-27-2018 19:07-0400 BMI (Body Mass Index) 37.12 kg/m2 [facility] 09-27-2018 19:07-0400 Body Temperature 98.49 [degF] [facility] 09-27-2018 19:07-0400 Body weight 104.33 kg [facility] 09-27-2018 19:07-0400 Height 167.6 cm [facility] 01-07-2018 10:29-0500 BMI (Body Mass Index) 37.93 kg/m2 Patricia Louis [facility] 01-07-2018 10:29-0500 BP Diastolic 80 mm[Hg] Patricia Sruthi [facility] 01-07-2018 10:29-0500 BP Systolic 124 mm[Hg] Patricia Louis [facility] 01-07-2018 10:29-0500 Height 167.6 cm Patricia Louis [facility] 01-07-2018 10:29-0500 Pulse (Heart Rate) 78 /min Patricia Bowersx [facility] 01-07-2018 10:29-0500 Pulse Oximetry 96 % Patricia Bowersx [facility] 01-07-2018 10:29-0500 Weight 106.59 kg Patricia Louis [facility] 09-20-2017 15:31-0400 BMI (Body Mass Index) 36.48 kg/m2 Patricia Bowersx [facility] 09-20-2017 15:31-0400 BP Diastolic 80 mm[Hg] Patricia Sruthi [facility] 09-20-2017 15:31-0400 BP Systolic 145 mm[Hg] Patricia Sruthi [facility] 09-20-2017 15:31-0400 Height 167.6 cm Patricia Bowersx [facility] 09-20-2017 15:31-0400 Pulse (Heart Rate) 72 /min Patricia Louis [facility] 09-20-2017 15:31-0400 Pulse Oximetry 95 % Patricia Louis [facility] 09-20-2017 15:31-0400 Weight 102.51 kg Patricia Louis [facility] 12-08-2016 11:05-0400 BMI (Body Mass Index) 34.33 kg/m2 Bev Tolentino [facility] Work Phone: 12-08-2016 11:05-0400 BP Diastolic 96 mm[Hg] Bev Exten [facility] Work Phone: 12-08-2016 11:05-0400 BP Systolic 143 mm[Hg] Bev Exten [facility] Work Phone: 12-08-2016 11:05-0400 Height 167.6 cm Bev Tolentino [facility] Work Phone: 12-08-2016 11:05-0400 Pulse (Heart Rate) 69 /min Bev Exten [facility] Work Phone: 12-08-2016 11:05-0400 Weight 96.48 kg Bev Tolentino [employer] Work Phone: 11-23-2016 10:32-0400 BMI (Body Mass Index) 32.51 kg/m2 Bev Tolentino [employer] Work Phone: 11-23-2016 10:32-0400 BP Diastolic 93 mm[Hg] Bev Tolentino [employer] Work Phone: 11-23-2016 10:32-0400 BP Systolic 121 mm[Hg] Bev Tolentino [employer] Work Phone: 11-23-2016 10:32-0400 Height 170.2 cm eBv Tolentino [employer] Work Phone: 11-23-2016 10:32-0400 Pulse (Heart Rate) 78 /min Bev Tolentino [employer] Work Phone: 11-23-2016 10:32-0400 Weight 94.17 kg Bev Tolentino [employer] Work Phone: 11-02-2016 10:00-0400 BMI (Body Mass Index) 34.07 kg/m2 Bev Tolentino [employer] Work Phone: 11-02-2016 10:00-0400 BP Diastolic 92 mm[Hg] Bev Tolentino [employer] Work Phone: 11-02-2016 10:00-0400 BP Systolic 135 mm[Hg] Bev Tolentino [employer] Work Phone: 11-02-2016 10:00-0400 Height 167.6 cm Bev Tolentino [employer] Work Phone: 11-02-2016 10:00-0400 Pulse (Heart Rate) 63 /min Bev Tolentino [employer] Work Phone: 11-02-2016 10:00-0400 Weight 95.75 kg Bev Tolentino [employer] Work Phone: 10-26-2016 14:00-0400 Body mass index (BMI) [Ratio] Bev Tolentino [facility] 10-26-2016 09:58-0400 BMI (Body Mass Index) 35.72 kg/m2 Bev Tolentino [employer] Work Phone: 10-26-2016 09:58-0400 BP Diastolic 88 mm[Hg] Bev Tolentino [employer] Work Phone: 10-26-2016 09:58-0400 BP Systolic 133 mm[Hg] Bev Tolentino [employer] Work Phone: 10-26-2016 09:58-0400 Height 167.6 cm Bev Tolentino [employer] Work Phone: 10-26-2016 09:58-0400 Pulse (Heart Rate) 68 /min Bev Tolentino [employer] Work Phone: 10-26-2016 09:58-0400 Weight 100.38 kg Bev Tolentino [employer] Work Phone: 09-18-2016 08:56-0400 BMI (Body Mass Index) 33.89 kg/m2 Patricia Louis [employer] Work Phone: 09-18-2016 08:56-0400 BP Diastolic 76 mm[Hg] Patricia Sruthi [employer] Work Phone: 09-18-2016 08:56-0400 BP Systolic 124 mm[Hg] Patricia Louis [employer] Work Phone: 09-18-2016 08:56-0400 Height 167.6 cm Patricia Louis [employer] Work Phone: 09-18-2016 08:56-0400 Pulse (Heart Rate) 68 /min Patricia Sruthi [employer] Work Phone: 09-18-2016 08:56-0400 Pulse Oximetry 94 % Patricia Sruthi [employer] Work Phone: 09-18-2016 08:56-0400 Weight 95.25 kg Patricai Bowersx [employer] Work Phone: Encounters Encounter Date Encounter Type Care Provider Facility Start: 12-07-2022 End: 12-07-2022 Emergency department patient visit Jasen Campbell Facility:[facility] Start: 12-07-2022 End: 12-07-2022 Emergency department patient visit DO Jasen Campbell Work Phone: [facility] Work Phone: Start: 06-20-2022 End: 06-20-2022 Emergency department patient visit MOISES AGUILERA AMANDA [facility] Start: 06-01-2022 Refill Anita Rowland MD Work Phone: [facility] Comment on above: Medication Refill Start: 03-06-2022 Documentation procedure Cassia hernandez MA [facility] Start: 02-14-2022 Refill Tiffany Leo RN [facility] Comment on above: Medication Refill Start: 01-22-2022 Refill Anita Rowland MD Work Phone: [facility] Comment on above: Medication Refill Start: 12-27-2021 [facility] Start: 12-27-2021 End: 12-27-2021 Office outpatient visit 25 minutes Moises Patel MD Work Phone: [facility] Comment on above: Inadequately control led diabetes mellitus (Primary Dx); Insomnia, unspecified type Start: 11-06-2021 End: 11-09-2021 Evaluation and management of [facility] Start: 10-30-2021 End: 10-30-2021 Emergency department patient visit MOISES AGUILERA [facility] Start: 10-23-2021 Refill Anita Rowland MD Work Phone: [facility] Comment on above: Medication Refill Start: 10-21-2021 Refill Anita Rowland MD Work Phone: [facility] Comment on above: Medication Refill Start: 10-19-2021 Refill Anita Rowland MD Work Phone: [facility] Comment on above: Medication Refill Start: 10-11-2021 Refill Anita Rowland MD Work Phone: [facility] Comment on above: Medication Refill Start: 07-06-2021 Refill Tiffany Leo RN [facility] Comment on above: Medication Refill Start: 05-23-2021 Refill Anita Rowland MD Work Phone: [facility] Comment on above: Medication Refill Start: 03-28-2021 ambulatory MELINDA TERRELL FERNANDEZ [facility] Start: 01-17-2021 Refill Tiffany Leo RN [facility] Comment on above: Medication Refill Start: 09-15-2020 End: 09-15-2020 Office outpatient visit 25 minutes Moises Patel MD Work Phone: [facility] Comment on above: Chronic obstructive pulmonary disease with acute exacerbation (Primary Dx); COPD with acute exacerbation Start: 08-19-2020 End: 08-19-2020 Refill Tiffany Leo RN [facility] Comment on above: Medication Refill Start: 08-06-2020 End: 08-06-2020 Refill Anita Rowland MD Work Phone: [facility] Comment on above: Medication Refill Start: 08-06-2020 End: 08-06-2020 Subsequent hospital visit by physician Anita Rowland MD Work Phone: [facility] Comment on above: Arrived Start: 06-10-2020 End: 06-10-2020 ambulatory MOISES PATEL [facility] Start: 06-10-2020 End: 06-10-2020 Clinical Support Cassandra Stewart RN [facility] Comment on above: Other specified comp lications of surgical and medical care, not elsewhere classified, initial encounter (Primary Dx) Arrived Medication Refill Start: 06-02-2020 End: 06-02-2020 Subsequent hospital visit by physician Anita Rowland MD Work Phone: [facility] Start: 05-28-2020 End: 06-01-2020 ambulatory ANITA ROWLAND [facility] Start: 05-28-2020 End: 05-28-2020 Office outpatient visit 40 minutes Anita Rowland MD Work Phone: [facility] Comment on above: Essential hypertensi on (Primary Dx); Mixed hyperlipidemia; Coronary artery disease involving [place] coronary artery of [place] heart without angina pectoris; PAD (peripheral artery disease) (HCC); Centrilobular emphysema (HCC); ISAC (obstructive sleep apnea); Nicotine abuse; Pre-procedure lab exam; Abnormal stress test Start: 05-28-2020 End: 05-28-2020 Patient encounter status Anita Rowland MD Work Phone: [facility] Start: 05-28-2020 End: 05-28-2020 Subsequent hospital visit by physician Anita Rowland MD Work Phone: [facility] Comment on above: Arrived Start: 05-23-2020 End: 05-23-2020 Patient encounter procedure MOISES [facility] Start: 05-18-2020 End: 05-18-2020 Orders Only Tiffany Leo [facility] Comment on above: Pre-procedure lab ex am (Primary Dx) Start: 04-21-2020 End: 04-21-2020 Orders Only Alicja Nieves Work Phone: [facility] Start: 04-13-2020 End: 04-13-2020 Refill Tiffany Leo [facility] Comment on above: Medication Refill Start: 04-12-2020 End: 04-12-2020 Refill Rubi Pratt [facility] Comment on above: Medication Refill Start: 12-05-2019 End: 12-05-2019 Patient encounter procedure MOISES AGUILERA [facility] Start: 10-17-2019 End: 10-17-2019 Documentation procedure Rubi Pratt [facility] Start: 10-16-2019 End: 10-16-2019 Subsequent hospital visit by physician Anita Rowland Work Phone: [facility] Comment on above: TIA (transient ische gustavo attack) Start: 10-15-2019 End: 10-16-2019 Emergency department patient visit Andreas Barfield Work Phone: [facility] Comment on above: Near syncope (Primar y Dx) Start: 10-15-2019 End: 10-15-2019 Office outpatient visit 25 minutes Anita Rowland Work Phone: [facility] Comment on above: TIA (transient ische gustavo attack) (Primary Dx); Essential hypertension; Mixed hyperlipidemia; Coronary artery disease involving [place] coronary artery of [place] heart without angina pectoris; Centrilobular emphysema (HCC); ISAC on CPAP; Nicotine abuse Start: 09-22-2019 Patient encounter procedure MOISES AGUILERA [facility] Start: 09-22-2019 End: 09-23-2019 Emergency department patient visit Ana Ruizjanki Weaver Work Phone: [facility] Intermediate Comment on above: Acute CVA (cerebrova scular accident) (HCC) (Primary Dx) Start: 04-03-2019 End: 04-03-2019 Office outpatient visit 15 minutes Carlo Mercedes Work Phone: [facility] Comment on above: Medication managemen t (Primary Dx); Coronary artery disease, angina presence unspecified, unspecified vessel or lesion type, unspecified whether [place] or transplanted heart Start: 03-17-2019 End: 03-17-2019 Patient encounter procedure Carlo Mercedes Work Phone: [facility] Cardio Pulmonary Rehab Comment on above: S/P CABG (coronary a rtery bypass graft) (Primary Dx) Start: 03-13-2019 End: 03-13-2019 Subsequent hospital visit by physician Carlo Mercedes Work Phone: [facility] Comment on above: Arrived Start: 03-11-2019 End: 03-11-2019 Patient encounter procedure Kristin Walker Work Phone: [facility] Comment on above: S/P CABG (coronary a rtery bypass graft) (Primary Dx) Start: 03-10-2019 Refill Kristin lopez PA-C Work Phone: [facility] Comment on above: Medication Refill Start: 03-05-2019 End: 03-05-2019 Documentation procedure Kristinkyler Walker Work Phone: [facility] Start: 02-26-2019 End: 02-26-2019 Postop follow up visit related to original px Kristin Walkergabrielle Walker Work Phone: [facility] Comment on above: S/P CABG (coronary a rtery bypass graft) (Primary Dx) Start: 02-25-2019 End: 02-26-2019 Emergency department patient visit Fausto Alejandro Work Phone: [facility] Emergency Department Comment on above: Pleuritic chest pain (Primary Dx) Start: 02-21-2019 End: 02-21-2019 Postop follow up visit related to original px Kristin Machuca Alphonse Work Phone: [facility] Comment on above: S/P CABG (coronary a rtery bypass graft) (Primary Dx) Start: 02-21-2019 End: 02-21-2019 Subsequent hospital visit by physician Jacob Cam Work Phone: [facility] Comment on above: S/P CABG (coronary a rtery bypass graft) Start: 02-18-2019 End: 02-18-2019 Documentation procedure Kristin Byrnes Work Phone: [facility] Start: 02-13-2019 End: 02-13-2019 Postop follow up visit related to original px Kristin Walkergabrielle Walker Work Phone: [facility] Comment on above: S/P CABG (coronary a rtery bypass graft) (Primary Dx) Start: 02-13-2019 End: 02-13-2019 Subsequent hospital visit by physician Kristin Byrnes Work Phone: [facility] Comment on above: S/P CABG x 1 Start: 02-06-2019 End: 02-06-2019 Postop follow up visit related to original px Jacob Cam Work Phone: [facility] Comment on above: S/P CABG x 1 (Primar y Dx) Start: 02-06-2019 End: 02-06-2019 Subsequent hospital visit by physician Kristin Walker Work Phone: [facility] Comment on above: S/P CABG (coronary a rtery bypass graft) Start: 02-02-2019 End: 02-04-2019 Subsequent hospital visit by physician Arvin Gilliam Work Phone: [facility] Cardiovascular ICU Comment on above: S/P CABG x 1 Start: 02-02-2019 End: 02-02-2019 Subsequent hospital visit by physician Kristin Walker Work Phone: [facility] Diagnostics Comment on above: Chest pain, unspecif ied type Start: 01-31-2019 End: 01-31-2019 Documentation procedure Kristin Walker Work Phone: [facility] Start: 01-31-2019 End: 01-31-2019 Postop follow up visit related to original px Kristin Walker Work Phone: [facility] Comment on above: S/P CABG (coronary a rtery bypass graft) (Primary Dx) Start: 01-31-2019 End: 01-31-2019 Subsequent hospital visit by physician Kristin Byrnes Work Phone: [facility] Comment on above: S/P CABG (coronary a rtery bypass graft) Start: 01-21-2019 End: 01-21-2019 Evaluation and management of inpatient Kristin Byrnes Work Phone: [facility] Pulmonary Lab Start: 01-17-2019 End: 01-29-2019 Evaluation and management of inpatient Ana Ruizjanki Weaver Work Phone: [facility] Cardiovascular ICU Comment on above: Chest pain, atypical (Primary Dx); Type 2 diabetes mellitus without complication, without long-term current use of insulin (HCC); Coronary artery disease, angina presence unspecified, unspecified vessel or lesion type, unspecified whether [place] or transplanted heart; Type 2 diabetes mellitus with other circulatory complications (HCC); S/P CABG x 1 Start: 01-04-2019 End: 01-04-2019 Emergency department patient visit Brian Cordoba Work Phone: [facility] Emergency Department Comment on above: COPD exacerbation (H CC) (Primary Dx) Start: 12-26-2018 End: 12-26-2018 Office outpatient visit 25 minutes Maykel Whitney Work Phone: [facility] Comment on above: Coronary artery dise ase involving [place] coronary artery of [place] heart with angina pectoris (HCC) (Primary Dx); Acute on chronic diastolic heart failure (HCC) Start: 12-25-2018 End: 12-25-2018 Subsequent hospital visit by physician Patricia Louis Work Phone: [facility] Comment on above: Chronic systolic con gestive heart failure (HCC) Start: 12-18-2018 End: 12-18-2018 Subsequent hospital visit by physician Patricia Louis Work Phone: [facility] Comment on above: Chronic systolic con gestive heart failure (HCC) Start: 12-10-2018 End: 12-10-2018 Subsequent hospital visit by physician Patricia Louis Work Phone: [facility] Comment on above: Chronic systolic hea rt failure (HCC); Hypertension, unspecified type; Coronary artery disease involving [place] coronary artery of [place] heart without angina pectoris Start: 11-26-2018 Refill Patricia Morales ax [employer] Work Phone: [facility] Comment on above: Medication Refill Start: 09-27-2018 End: 09-27-2018 Emergency department patient visit Jesúscam Erki Work Phone: [facility] Emergency Department Comment on above: Acute exacerbation o f chronic obstructive pulmonary disease (COPD) (HCC) (Primary Dx) Start: 01-21-2018 End: 01-21-2018 Patient encounter procedure Other Other [facility] Start: 01-11-2018 End: 01-11-2018 Patient encounter procedure Sophia Jarad Llanos [facility] Comment on above: Other (ROSA Attempt.) Start: 01-08-2018 End: 01-09-2018 Patient encounter procedure Yareli Platayuliana Facility:[facility] Start: 01-07-2018 Patient encounter procedure Patricia L. Sruthi Facility:[facility] Start: 01-07-2018 End: 01-07-2018 Office outpatient visit 25 minutes Patircia Rodríguez Sruthi Work Phone: [facility] Comment on above: Chronic systolic hea rt failure (HCC) (Primary Dx); Essential hypertension; Coronary artery disease involving [place] coronary artery of [place] heart without angina pectoris Start: 09-23-2017 End: 09-25-2017 Patient encounter procedure Sofie Daigle Facility:[facility] Start: 09-20-2017 End: 09-20-2017 Office outpatient visit 25 minutes Patricia L. Sruthi Work Phone: [facility] Start: 09-20-2017 Refill Patricia Westbrooku ax [employer]IST Work Phone: [facility] Comment on above: Medication Refill Start: 09-11-2017 End: 09-11-2017 Emergency department patient visit Samira Monzon Facility:[facility] Start: 06-11-2017 Refill Izabel Earl [facility] Start: 03-08-2017 End: 03-08-2017 Ambulatory Fitz Mg Work Phone: [facility] Start: 01-18-2017 End: 01-18-2017 Ambulatory Carola Lyle Work Phone: [facility] Start: 12-08-2016 Office outpatient vi sit 15 minutes Bev Tolentino Work Phone: [facility] Start: 11-23-2016 Office outpatient vi sit 15 minutes Bev Thomas Exten Work Phone: [facility] Start: 11-02-2016 End: 11-02-2016 Office outpatient visit 15 minutes Bev Thomas Rajan Work Phone: [facility] Comment on above: Leukocytosis, unspec ified type (Primary Dx) Start: 10-26-2016 End: 10-26-2016 Patient encounter procedure Bev Thomas Rajan Work Phone: [facility] Start: 10-26-2016 Office/outpatient visit, est, level 4 Bev Thomas Rajan Work Phone: [facility] Start: 10-20-2016 End: 10-20-2016 Ambulatory Moises Patel Work Phone: [facility] Start: 10-20-2016 End: 10-20-2016 Ambulatory Moises Patel Work Phone: [facility] Start: 10-12-2016 End: 10-12-2016 Patient encounter procedure Moises Patel Work Phone: [facility] Start: 10-12-2016 End: 10-12-2016 Patient encounter procedure Moises Patel Work Phone: [facility] Start: 09-18-2016 End: 09-18-2016 Patient encounter procedure Patricia Anne Louis Work Phone: [facility] Start: 09-18-2016 Office/outpatient visit, est, level 3 Patricia Bowersx Work Phone: [facility] Start: 06-21-2016 Refill Patricia Westbrooku ax [employer] Work Phone: [facility] Failure [facility] Comment on above: Medication Refill Start: 03-30-2016 Refill Patricia Westbrooku ax [employer]IST Work Phone: [facility] Comment on above: Medication Refill Start: 10-08-2015 Refill Patricia Westbrooku ax [employer]IST Work Phone: [facility] Comment on above: Medication Refill Procedures Date Procedure Procedure Detail Performing Clinician Start: 12-07-2022 CT of left shoulder DO Jasen Campbell Work Phone: Start: 12-07-2022 Antibody screen Jose Raul Campbell Comment on above: Result Comment: PERF ORMED BY: [facility] [place] [address] PATHOLOGIST ORE FIELDER TIBURCIO POWERS M.D. Start: 12-07-2022 Plain X-ray of bilat eral femurs DO Jasen Campbell Work Phone: Start: 12-07-2022 Plain X-ray of left shoulder DO Jasen Cambpell Work Phone: Start: 12-07-2022 Computed tomography of [...] Start: 02-25-2019 UGALDE TOP Fausto Ladd n [place] Work Phone: Start: 02-25-2019 LIGHT GREEN TOP Fausto cosby Crouse Work Phone: Start: 02-25-2019 RAINBOW DRAW Fausto Ladd n [place] Work Phone: Start: 02-25-2019 Basic metabolic 2000 [...] [Mass/volume] in Serum or Plasma Fausto Laddn [place] Work Phone: Start: 02-25-2019 Troponin measurement Mi [...] Jim Work Phone: Start: 01-27-2019 Radiography of [id number] Kristin Walker Work Phone: Start: 01-27-2019 Echography [...] of arteri al blood gas studies Generic [facility] Work Phone: Start: 01-24-2019 End: 01-24-2019 Glucose [Mass/volume] in Blood Nova Barrera Diandra Work Phone: Start: 01-24-2019 Evaluation of arteri al blood gas studies Generic [facility] Work Phone: Start: 01-24-2019 Glucose [Mass/volume ] in Blood jax Barrera Diandra Work Phone: Start: 01-24-2019 Calcium.ionized [Mas s/volume] in Serum or Plasma Kristin Abraham [employer] Work Phone: Start: 01-24-2019 aPTT in Blood by Coa gulation assay Kristin Abraham [employer] Work Phone: Start: 01-24-2019 Basic metabolic 2000 panel - Serum or Plasma Kristin Abraham [employer] Work Phone: Start: 01-24-2019 Complete blood count with white cell differential, automated Kristin Abraham [employer] Work Phone: Start: 01-24-2019 Complete blood count with white cell differential, manual Kristin Abraham [employer] Work Phone: Start: 01-24-2019 Fibrinogen [Mass/vol ume] in Platelet poor plasma by Coagulation assay Kristin Abraham [employer] Work Phone: Start: 01-24-2019 INR in Platelet poor plasma by Coagulation assay Kristin Abraham [employer] Work Phone: Start: 01-24-2019 Magnesium [Mass/volu me] in Serum or Plasma Kristinkyler Byrnes Work Phone: Start: 01-24-2019 Evaluation of arteri al blood gas studies Generic Counts Include [address] [facility] Work Phone: Start: 01-24-2019 End: 01-24-2019 [...] of abuse urine screening test Kristin Jarad [employer] Work Phone: Start: 01-22-2019 Urinalysis Kristin Alannah marquis Titley Work Phone: Start: 01-22-2019 APTT - reference Maykel Whitney Work Phone: Start: 01-22-2019 Basic metabolic 2000 panel - Serum or Plasma Kristin Lee Ravgeny Work Phone: Start: 01-22-2019 Complete blood count with white cell differential, automated Kristin Abraham [employer] Work Phone: Start: 01-22-2019 Complete blood count with white cell differential, manual Kristin Lee Ravgeny Work Phone: Start: 01-21-2019 Glucose [Mass/volume ] in Blood Nova Jim Work Phone: Start: 01-21-2019 APTT - reference Mirna Rodriguez Work Phone: Start: 01-21-2019 Glucose [Mass/volume ] in Blood Nova Jim Work Phone: Start: 01-21-2019 Contrast echocardiography Kristin Jarad Ravgeny Work Phone: Start: 01-21-2019 Glucose [Mass/volume ] in Blood Nova Jim Work Phone: Start: 01-21-2019 Bacteria identified in Unspecified specimen by Aerobe culture Kristin Lee Ravgeny Work Phone: Start: 01-21-2019 Standard chest X-ray Nasim Abraham Titley Work Phone: Start: 01-21-2019 Doppler ultrasonogra phy of artery of lower limb Kristin Abraham [employer] Work Phone: Start: 01-21-2019 COMPLETE PFT Kristin Grijalva [employer] Work Phone: Start: 01-21-2019 Basic metabolic 2000 panel - Serum or Plasma Kristin Abraham [employer] Phone: Start: 01-21-2019 Complete blood count with white cell differential, automated Kristin Abraham [employer] Work Phone: Start: 01-21-2019 Complete blood count with white cell differential, manual Kristin Abraham [employer] Work Phone: Start: 01-20-2019 Carotid artery doppl er assessment Kristin Abraham [employer] Work Phone: Start: 01-20-2019 Electrocardiogram Provi malinda Not In System Start: 01-20-2019 Cul bact xcpt urine blood/stool aerobic isol Kristin Abraham [employer] Work Phone: Start: 01-20-2019 Evaluation of arteri al blood gas studies Generic Counts Include [address] [facility] Work Phone: Start: 01-20-2019 Amylase measurement, body fluid Kristin Abraham [employer] Work Phone: Start: 01-20-2019 Blood type and Indir ect antibody screen panel - Blood Kristin Abraham [employer] Phone: Start: 01-20-2019 Hemoglobin A1c/Hemoglobin.total in Blood Kristin Abraham [employer] Work Phone: Start: 01-20-2019 Hepatic function 200 0 panel - Serum or Plasma Kristin Abraham [employer] Phone: Start: 01-20-2019 INR in Platelet poor plasma by Coagulation assay Kristin Abraham [employer] Phone: Start: 01-20-2019 Prealbumin [Mass/vol ume] in Serum or Plasma Kristin Abraham [employer] Phone: Start: 01-20-2019 Thyrotropin [Units/v olume] in [...] System Start: 09-28-2018 Assay of troponin quantitative [facility] Start: 09-28-2018 Natriuretic peptide [facility] Start: 09-27-2018 Assay of troponin quantitative [facility] Start: 09-27-2018 Fibrin dgradj produc ts d-dimer quantitative [facility] Start: 09-27-2018 Complete blood count with white cell differential, automated Nathanael Valencia Work Phone: Start: 09-27-2018 Complete blood count with white cell differential, manual [employer] Valencia Work Phone: Start: 09-27-2018 Radiologic exam ches t single view Nathanael Valencia Work Phone: Start: 09-27-2018 Basic metabolic pane l calcium total [facility] Start: 09-27-2018 POC CBC AND DIFFERENTIAL Jesúscam Valencia Work Phone: Start: 09-27-2018 End: 09-28-2018 12 lead ECG Jesúscam Valencia Work Phone: Start: 05-27-2015 Colonoscopy Tiffany ovalle RN Plan of Treatment Date Care Activity Detail Author Start: 08-08-2036 Pneumococcal Vaccine: Ped or At-Risk (2 of 2 - PPSV23) Pneumococcal Vaccine: Ped or At-Risk (2 of 2 - PPSV23) [facility] Start: 05-26-2025 Screening for malignant neoplasm of colon [facility] Start: 11-07-2023 Prostate specific antigen measurement PSA Level [facility] Start: 10-13-2022 Influenza vaccination Sequential Influenza Vaccine (Season Ended) [facility] Start: 03-29-2022 End: 03-29-2022 Patient encounter procedure 03/29/2022 Office Visit Family Medicine Moises Patel MD [address] [place] [id number] [facility] Start: 02-05-2022 Hemoglobin A1c measurement A1C [facility] Start: 10-31-2021 End: 10-31-2021 Patient encounter procedure 10/31/2021 Office Visit Cardiology Anita Rowland MD [address] [place] [address] [facility] Start: 10-13-2021 Influenza vaccination [facility] Start: 08-08-2021 Administration of herpes zoster vaccine Zoster Vaccines (1 of 2) [facility] Start: 08-08-2021 Prostate specific antigen measurement PROSTATE CANCER SCREENING DISCUSSION [facility] Start: 08-08-2021 Screening for malignant neoplasm of colon Flexible sigmoidoscopy [facility] Start: 08-08-2021 Zoster vaccine hzv live for subcutaneous use ZOSTER (SHINGLES) VACCINE (1 of 2) [facility] Start: 10-13-2020 Influenza vaccination [facility] Start: 10-01-2020 COVID-19 VACCINE (3 - Booster for Pfizer series) COVID-19 VACCINE (3 - Booster for Pfizer series) [facility] Start: 09-24-2020 End: 09-24-2020 Patient encounter procedure 09/24/2020 Office Visit Pulmonary Disease Valerie Carreno, MOSAIC WORKER-MACHINE I ENGRAVER [address] [id number] [facility] Pulmonary Disease [facility] Start: 08-06-2020 COVID-19 Vaccine (2 - Pfizer 2-dose series) COVID-19 Vaccine (2 - Pfizer 2-dose series) [facility] Start: 08-06-2020 COVID-19 Vaccine (2 - Pfizer series) COVID-19 Vaccine (2 - Pfizer series) [facility] Start: 07-12-2020 End: 08-10-2021 Ultrasound duplex arterial arm left Ultrasound duplex arterial arm left Vascular Ultrasound Routine Other specified complications of surgical and medical care, not elsewhere classified, initial encounter Expected: 07/12/2020, Expires: 08/10/2021 [facility] Comment on above: Expected: 07/12/2020, Expires: Start: 07-09-2020 End: 07-09-2020 Patient encounter procedure 07/09/2020 Appointment Cardiology Anita Rowland MD [address] [place] [address] [phone] [facility] Start: 06-02-2020 Subsequent hospital visit by physician 06/02/2020 Hospital Encounter Cardiology Anita Rowland MD [address] [place] [id number] [phone] [facility] Procedural Care Unit Start: 05-28-2020 End: 05-28-2020 Appointment [facility] Start: 03-24-2020 HbA1c (Bld) [Mass fraction] A1C [facility] Start: 03-24-2020 Hemoglobin A1c measurement A1C [facility] Start: 02-26-2020 Screening for malignant neoplasm of lung Low-dose CT Lung Cancer Screen [facility] Start: 12-08-2019 End: 12-08-2019 Office Visit 12/08/2019 Office Visit Cardiology Anita Rowland MD [address] [place] [address] [phone] [facility] Start: 11-07-2019 End: 11-07-2019 Appointment 11/07/2019 Appointment Cardiology Anita Rowland MD [address] [place] [address] [phone] [facility] Start: 11-05-2019 End: 11-05-2019 Office Visit 11/05/2019 Office Visit Neurology Ginny Rushing CNP [address] [address] [phone] [facility] Start: 10-16-2019 End: 10-16-2019 Appointment 10/16/2019 Appointment Cardiology Anita Rowland MD [address] [place] [address] [phone] [facility] Start: 10-14-2019 Influenza vaccination Sequential Influenza Vaccine (#1) [facility] Start: 10-14-2019 Influenza vaccination given Sequential Influenza Vaccine (#1) [facility] Start: 09-30-2019 End: 09-30-2019 Office Visit 09/30/2019 Office Visit Cardiology Anita Rowland MD [address] [place] [address] [phone] [facility] Start: 07-31-2019 End: 07-31-2019 Appointment [facility] Start: 07-22-2019 HbA1c (Bld) [Mass fraction] A1C [facility] Start: 06-25-2019 End: 06-25-2019 Treatment 06/25/2019 Treatment Cardiac Carlo Berry MD [address] [place] [address] [phone] [facility] Start: 06-23-2019 End: 06-23-2019 Treatment 06/23/2019 Treatment Cardiac Carlo Berry MD [address] [place] [address] [phone] [facility] Start: 06-19-2019 End: 06-19-2019 Treatment 06/19/2019 Treatment Cardiac Carlo Berry MD [address] [place] [address] [phone] [facility] Start: 06-18-2019 End: 06-18-2019 Treatment 06/18/2019 Treatment Cardiac Carlo Berry MD [address] [place] [address] [phone] [facility]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 appropriate until next ov. [facility] 10-19-2021 Miscellaneous Notes Formattin g of this note might be different from the original. Pt was last seen by Dr. Rowland in 05/2020, w/ upcoming ov in 10/2021. Refill appropriate until next ov. documented in this encounter [facility] 10-11-2021 Telephone encount er Note Patient was last seen 05/2020 and has a follow up scheduled 10/31/2021. Refill appropriate until next ov [facility] 10-11-2021 Miscellaneous Notes Formattin g of this note might be different from the original. Patient was last seen 05/2020 and has a follow up scheduled 10/31/2021. Refill appropriate until next ov documented in this encounter [facility] 07-06-2021 Telephone encount er Note Refill needed to local pharmacy. Last OV 06/10/20. Follow up pending. [facility] 07-06-2021 Miscellaneous Notes Formattin g of this note might be different from the original. Refill needed to local pharmacy. Last OV 06/10/20. Follow up pending. documented in this encounter [facility] 05-23-2021 Telephone encount er Note Scheduling to contact for ov Last seen 05/28/20 w/ Dr. Rowland Recall 6 mo [facility] 05-23-2021 Miscellaneous Notes Formattin g of this note might be different from the original. Scheduling to contact for ov Last seen 05/28/20 w/ Dr. Rowland Recall 6 mo documented in this encounter [facility] 01-17-2021 Miscellaneous Notes Refill needed to local pharmacy. Last OV with Dr. Rowland 05/28/20. documented in this encounter [facility] 09-15-2020 History of Presen t illness Narrative Follow Up Visit Fernando Helton [id number] 1970 09/15/2020 Chief Complaint Patient presents with [...] disease) Essential hypertension, benign Head pain Hyperlipidemia NH (myocardial infarction) 01/2012, 04/2012 x2 Neck pain ISAC on CPAP 07/06/2020 Past Surgical History: Procedure Laterality Date OTHER SURGICAL 2019 open heart surgery LUNG SURGERY 2019 drainage of fluid on lung ARTHROSCOPY SHOULDER W/ BICEPS TENODESIS Left 05/08/2013 Laterality: Left; Surgeon: Louise Waldron MD; Location: [facility] MAIN OR SHOULDER SURGERY Left 11/22/11 SINUS [...] Social Gatherings with Friends and Family: Attends Jainism Services: Active Member of Clubs or Organizations: [...] of breath, Disp: 1 Each, Rfl: 0 Ezvwwsitpox-Owzmyojvv-Eadsqv (Trelegy Ellipta) 200-62.5-25 MCG/INH Aerosol Powder, breath [...] Mites/D.P., Class 1.04 (A) ELM, IGE <0.10 [place], IGE <0.10 [place] 2.77 (A) [...] Moises Patel MD documented in this encounter [facility] 08-19-2020 Miscellaneous Notes Refill needed to local pharmacy. Last OV with Dr. Rowland May 2020. documented in this encounter [facility] 08-06-2020 Miscellaneous Notes Last OV 05/28/20. Refills appropriate. documented in this encounter [facility] 06-10-2020 Miscellaneous Notes Order needed to local pharmacy. One week sample given for Xarelto 20mg PO daily. Coupon also given for refill pickup. Education handouts given. documented in this encounter [facility] 06-10-2020 History of Presen t illness Narrative Dr. Rowland notified of preliminary results of arterial duplex. Patient discussing results with Dr. Rowland and new orders received for Xarelto 20mg daily. Instructional handout given. Spoke to with recommendations as well. documented in this encounter [facility] 06-10-2020 History of Presen t illness [...] radial pulse palpated. documented in this encounter [facility] 06-02-2020 Hospital Discharg e instructions Princess Cisneros RN - 06/02/2020 [facility] Post Cardiac Catheterization Discharge Instructions Site Care Leave Bandage in place the night of your catheterization. Watch for any bleeding or oozing from the site. If this occurs, lie flat and place direct pressure on the bandage for 20 minutes. If bleeding reoccurs call [facility]. For groins, remove your bandage the [...] 24 hours after the procedure. Call [facility] at [phone] if you notice any of the following: [...] of prescription assistance, please notify the [facility] nurse or call the office. If you were prescribed Plavix (clopidogrel), Effient (prasugrel), or Brilinta (ticagrelar) after your procedure, DO NOT STOP taking this medication unless told to do so by your [facility] human resources leader. Follow up appointments, tests or procedures will be on your discharge paperwork under What's next. Please call [facility] at [phone] to reschedule any appointments if needed or if you have any questions or concerns. Thank you! documented in this encounter [facility] 06-01-2020 History of Presen t illness Narrative Called and notified patient of time change for cath tomorrow. Patient to arrive to the hospital at 0800 for cath at 1000. Patient verbalizes understanding. documented in this encounter [facility] 05-28-2020 Miscellaneous Notes Associated Problem(s): COPD (chronic obstructive pulmonary disease) (HCC) Patient reports he has discontinued tobacco abuse. Associated Problem(s): ISAC (obstructive sleep apnea) Noncompliant with CPAP therapy. Associated Problem(s): Coronary artery disease involving [place] coronary artery of [place] heart without angina pectoris Patient has a [...] intensified as tolerated. documented in this encounter [facility] 05-28-2020 History of Presen t illness Narrative CARDIOLOGY PROGRESS NOTE [facility] [address] [facility] [address] [facility] [id number] Physicians: Moises Patel MD [...] not describing palpitations. Patient was hospitalized at [facility] in an observational stay unit for [...] plaque stabilization therapy. Coronary artery disease involving [place] coronary artery of [place] heart without angina pectoris Patient has a [...] the review of systems obtained by the biomedical engineering internship. Vitals: Vitals: 05/28/20 1605 BP: (!) 149/88 Pulse: 78 SpO2: 96% Weight: 121.6 kg (268 lb) Height: 5' 5.98 1. Essential hypertension 2. Mixed hyperlipidemia 3. Coronary artery disease involving [place] coronary artery of [place] heart without angina pectoris 4. PAD (peripheral artery disease) (HCC) 5. Centrilobular emphysema (HCC) 6. ISAC (obstructive sleep apnea) 7. Nicotine abuse 8. Pre-procedure lab exam 9. Abnormal stress test Anita Rowland MD documented in this encounter [facility] 05-28-2020 Instructions Rubi Pratt RN - 05/28/2020 4:33 PM EDT Tiffany Leo BSN, print shop stenographer for Anita Rowland MD [address] [facility], [address]rd Floor [place] [address] General office (Scheduling) Covid Testing Prior to your procedure or test you will need to have a test to rule out Covid 19. This is an oral swab that is done at a drive-up testing site in [place]. You are to have this test completed no earlier than 96 hours but no less than 72 hours before your cardiac procedure or test. The testing site is at [address] [place] [address] in [place]. It is off of [address] between [address] and [facility]. The hours of testing are Sunday [...] Tuesday June 02, 2020 Please arrive at [facility] and check in at the Outpatient Registration [...] questions or concerns please contact us at [phone]. documented in this encounter [facility] 06-11-2017 Telephone encount er Note Pts left a VM requesting refills on three of the pts medications. [facility] 06-11-2017 Miscellaneous Notes Formattin g of this note might be different from the original. Pts left a VM requesting refills on three of the pts medications. documented in this encounter [facility] Evaluation note Diagnosis Essential hypertension- Primary Unspecified essential hypertension Mixed hyperlipidemia Coronary artery disease involving [place] coronary artery of [place] heart without angina pectoris PAD (peripheral artery disease) (HCC) Unspecified peripheral vascular disease Centrilobular emphysema (HCC) ISAC (obstructive sleep apnea) Obstructive sleep apnea (adult) (pediatric) Nicotine abuse Pre-procedure lab exam Pre-procedural laboratory examination Abnormal stress test Other nonspecific abnormal cardiovascular system function study documented in this encounter [facility] note* Diagnosis NSVT (nonsustained ventricular tachycardia) [facility] Abnormal EKG Nonspecific abnormal electrocardiogram (ECG) (EKG) documented in this encounter [facility] note* Diagnosis Other specified complications of surgical and medical care, not elsewhere classified, initial encounter- Primary documented in this encounter [facility] note* Diagnosis Other specified complications of surgical and medical care, not elsewhere classified, initial encounter- Primary documented in this encounter [facility] note* Diagnosis Other specified complications of surgical and medical care, not elsewhere classified, initial encounter documented in this encounter [facility] note* Diagnosis Other specified complications of surgical and medical care, not elsewhere classified, initial encounter documented in this encounter [facility] note* Diagnosis Chronic obstructive pulmonary disease with acute exacerbation- Primary Obstructive chronic bronchitis with exacerbation COPD with acute exacerbation Obstructive chronic bronchitis with exacerbation [facility] Inadequately controlled diabetes mellitus- Primary Type II or unspecified type diabetes mellitus without mention of complication, not stated as uncontrolled Insomnia, unspecified type documented in this encounter [facility] noteNo assessment information [facility] Work Phone: Hospital Discharge instructions Additional Instructions If your symptoms return/worsen or you develop any further concerns or symptoms please see your doctor or return to the emergency department immediately. Please be sure to follow-up with your primary care provider regarding today's visit as well as the lab and imaging results.[facility] Work Phone: Assessments Diagnosis Leukocytosis, unspecified ty pe - Primary Diagnosis Essential hypertension - Vivi emma Unspecified essential hypertension Chronic systolic heart failu re (HCC) Chronic systolic heart failure Coronary artery disease invo lving [place] coronary artery of [place] heart without angina pectoris Hyperlipidemia, unspecified hyperlipidemia type Diagnosis Leukocytosis, unspecified ty pe - Primary Diagnosis Leukocytosis, unspecified ty pe - Primary Diagnosis Chronic systolic heart failu re (HCC) - Primary Chronic systolic heart failure Essential hypertension Unspecified essential hypertension Coronary artery disease invo lving [place] coronary artery of [place] heart without angina pectoris Diagnosis Chronic systolic heart failu re (HCC) - Primary Chronic systolic heart failure Essential hypertension Unspecified essential hypertension Coronary artery disease invo lving [place] coronary artery of [place] heart without angina pectoris Diagnosis Leukocytosis, unspecified ty pe - Primary Diagnosis Acute exacerbation of chronic obstructive pulmonary disease (COPD) ([facility])- Primary Obstructive chronic bronchitis with exacerbation Diagnosis [...] unspecified vessel or lesion type, unspecified whether [place] or transplanted heart Diagnosis TIA (transient ischemic attack)- Primary Unspecified transient cerebral ischemia Essential hypertension Unspecified essential hypertension Mixed hyperlipidemia Coronary artery disease involving [place] coronary artery of [place] heart without angina pectoris Centrilobular emphysema ([facility]) ISAC on CPAP Nicotine abuse Diagnosis TIA (transient ischemic attack) Unspecified transient cerebral ischemia Diagnosis Chronic systolic heart failure (HCC) Chronic systolic heart failure Hypertension, unspecified type Coronary artery disease involving [place] coronary artery of [place] heart without angina pectoris Diagnosis Chronic systolic congestive heart failure ([facility]) Diagnosis Chest pain, atypical Type 2 diabetes mellitus without complication, without long-term current use of insulin ([facility]) Coronary artery disease, angina presence unspecified, unspecified vessel or lesion type, unspecified whether [place] or transplanted heart Type 2 diabetes mellitus with other circulatory complications ([facility]) S/P CABG x 1 Postsurgical aortocoronary bypass status Chest pain Unspecified chest pain ACS (acute coronary syndrome) ([facility]) Intermediate coronary syndrome PAD (peripheral artery disease) ([facility] [facility] Unspecified peripheral vascular disease Diagnosis Pleuritic chest pain Painful respiration Diagnosis Near syncope- Primary COPD (chronic obstructive pulmonary disease) ([facility]) Chronic airway obstruction, not elsewhere classified Coronary artery disease involving [place] coronary artery of [place] heart without angina pectoris SIAC (obstructive sleep apnea) Obstructive sleep apnea (adult) (pediatric) Essential hypertension Unspecified essential hypertension TIA (transient ischemic attack) Unspecified transient cerebral ischemia Mixed hyperlipidemia Nicotine abuse Diagnosis COPD exacerbation ([facility]) Obstructive chronic bronchitis with exacerbation Diagnosis Coronary artery disease involving [place] coronary artery of [place] heart with angina pectoris ([facility])- Primary Acute on chronic diastolic heart failure ([facility]) Acute on chronic diastolic heart failure Diagnosis Acute CVA (cerebrovascular accident) ([facility]) Essential hypertension Unspecified essential hypertension Mixed hyperlipidemia Coronary artery disease involving [place] coronary artery of [place] heart without angina pectoris GERD (gastroesophageal reflux disease) Esophageal reflux PAD (peripheral artery disease) ([facility]) Unspecified peripheral vascular disease TIA (transient ischemic [...] and how you are feeling on Sunday. [phone] Please work your portion sizes and snacks [...] your care team or the office at [phone]. Please include medication name, pharmacy name, and [...] They will send two batteries and a family living educator. While you are wearing one of the batteries please have the other battery charging in the family living educator device. Please do not get the device [...] when results have been interpreted by a human resources leader. If you have any questions please call [phone]. documented in this encounter* Patient Instructions* Ligia Koroma RN - 12/26/2018 4:05 PM EST Your nurse today was Ligia HURT who can be contacted at [phone]. You may also contact Kalina Bernal other nurse at [phone]. REFILLS: When in need of refills please call Ligia at the above number or the office at [phone]. Please include medication name and dose, pharmacy name and location, and specify 30-day or 90-day supply. Please check with your pharmacy within 24-48 hours of request for your refill. You must follow up as directed to continue current refills. Thank you! documented in this encounter History of Present Illness * Patricia Louis, TALENT SOURCING SPECIALIST - 01/07/2018 10:37 AM EST Formatting of this note may be different from the original. [facility] NAME: Fernando Helton DATE OF : 1970 MEDICAL RECORD#: [id number] ENROLLMENT MANAGEMENT COORDINATOR: TODAY'S DATE: 01/07/2018 Subjective Fernando Helton is [...] edema. 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 Mr. Helton has not seen a human resources leader in some time. He will be scheduled [...] INCLUDES: Strong family hx w/ Father having NH/CABG at age 45. Mother w/ NH at 63 and CVA hx. The patient had an STEMI (anterior/lateral) in April 2012 required IABP and bare metal stenting. He was non-compliant w/ medications and had a anterior NH in 2014 w/ cardiac arrest and additional [...] 1998 CAD (coronary artery disease) CAD s/p [facility] with 1 stent in left main 07/2012, replaced 09/2014 Chest pain Circulation problem right leg COPD (chronic obstructive pulmonary disease) ([facility]) Fatigue GERD (gastroesophageal reflux disease) Headache HLD (hyperlipidemia) HTN (hypertension) Metabolic syndrome Mood disorder ([facility]) Obstructive sleep apnea Pneumomediastinum ([facility]) 01/2007 Rotator cuff tear, right 1997 s/p repair SLAP tear of shoulder 2011 left - s/p surgery to place [address] elevation myocardial infarction (STEMI) of anterolateral wall ([facility]) 05/09/12 Past Surgical History: Procedure Laterality Date [...] with patient. There is collaboration between the TALENT SOURCING SPECIALIST and the consulting/collaborating physician regarding this patient's [...] of multiple medical problems including CAD statuspost [facility] with 1 stent placed in the left [...] 1998 CAD (coronary artery disease) CAD s/p [facility] with 1 stent in left main 07/2012, replaced 09/2014 Chest pain Circulation problem right leg COPD (chronic obstructive pulmonary disease) ([facility]) Fatigue GERD (gastroesophageal reflux disease) Headache HLD (hyperlipidemia) HTN (hypertension) Metabolic syndrome Mood disorder ([facility]) Obstructive sleep apnea Pneumomediastinum ([facility]) 01/2007 Rotator cuff tear, right 1997 s/p repair SLAP tear of shoulder 2011 left - s/p surgery to place [address] elevation myocardial infarction (STEMI) of anterolateral wall ([facility]) 05/09/12 Past Surgical History: Procedure Laterality Date [...] CBC prior. - CBC and Differential; Future Teer Tolentino MD in this encounter* Kristin Walker [...] seen by the PA. Dr. Arvin Gilliam, [facility] for Dr. Blake Mcneil was updated [...] or 10:00 am. 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 He [...] last 72 hours. 02/02/2019 CTA pulmonary arteries: [id number] effusion with mild atelectasis in the left [...] for discharge after thoracentesis Hold Plavix CPT: 99872 * Arvin Gilliam II, MD - 02/02/2019 [...] PA-C - 02/21/2019 9:19 AM EST Kristin Wakler PA-C 02/21/19 Fernando Helton Allergies Allergen Reactions [...] Westbrook, PT - 03/11/2019 8:20 AM EST [facility] [address] [place], [place] [id number] Office 03/11/2019 Patient: Fernando Helton : 1970 Primary Diagnosis: CABG The Cardiac Rehab Staff had the recent pleasure of meeting Fernando Helton for a consultation regardingoutpatient cardiac rehabilitation. As you recall, Mr. Helton has a history of NH 2012, NH/ cardiac arrest 2014, and CHF. He recently presented with anterior wall NH. Cardiac cath 01/20/19: EF 45%; occ mid LAD stent. He underwent CABG x 1 on 01/24/19. Risks and benefits associated with a cardiac rehabprogram were discussed along with his risk factors and a preliminary treatment plan and goals for the program. The Cardiac Rehab Staff will maintain contact with you throughout the 12-week program. Thank you for allowing Mr. Helton to participate in [facility] comprehensive risk [...] prescription reviewed and approved by our medical consultant. Psychosocial: Patient scored a 3 on the [...] of assistance in this patient's care. Sincerely, Toire Westbrook MS, ACS-CEP Supervising Physician: Dr. Au documented in this encounter* Torie Westbrook, PT - 03/17/2019 7:57 AM EST Cardiac Rehab Session. Ref to daily session report in Procedures. Supervising Physician: Dr. Durán documented in this encounter* Carlo Mercedes MD - 04/03/2019 3:40 PM EST PC-patient is here for follow-up visit after single-vessel CABG (SPARKS to LAD) COCOPAH-patient is a pleasant 48-year-old man with known [...] History: Diagnosis Date Acute respiratory failure ([facility]) 09/2014 requring mechanical ventilation Anxiety Bilateral lower extremity edema R > L CAD (coronary artery disease) CAD s/p C with 1 stent in left main 07/2012, replaced 09/2014 Cardiac arrest with ventricular fibrillation ([facility]) 09/25/2014 CHF (congestive heart failure), NYHA class I, chronic, diastolic ([facility]) Chronic sinusitis Claudication of right lower extremity ([facility]) Cluster headache COPD (chronic obstructive pulmonary disease) ([facility]) 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 Bev Tolentino Metabolic syndrome Mood disorder ([facility]) Nasal fracture Obstructive sleep apnea noncompliant with CPAP Orthostatic dizziness with intermittent syncope Pericarditis 02/25/07; 09/23/17 Pneumomediastinum ([facility]) 01/12/2007 secondary to severe coughing spell & ruptured alveoli Rotator cuff tear, right 1997 s/p repair SLAP tear of shoulder 2011 left - s/p surgery to place [address] elevation myocardial infarction (STEMI) of anterolateral wall ([facility]) 05/09/2012 anterolateral STEMI involving left anterior descending coronary artery ([facility]) 09/25/2014 anterior Superficial thrombophlebitis of right upper extremity 12/26/2006 Past Surgical History: Procedure Laterality Date APPENDECTOMY 1998 BONE MARROW BIOPSY W/ ASPIRATION Left 11/27/2016 L posterior iliac crest; Dr. Bev Tolentino CABG OFF PUMP N/A 01/24/2019 Procedure: Coronary Artery Bypass graft x1 with Left Internal Mammary Artery graft, OFF PUMP; Surgeon: Neo Mcneil MD; Location: [facility]; Service: Cardiothoracic CARDIAC CATHETERIZATION 09/24/2014 Segment [...] Heart Cath; Surgeon: Carlo Mercedes MD; Location: [facility]; Service: Cardiovascular IABP placement 05/09/[address] [...] file Gets together: Not on file Attends adventist service: Not on file Active member of [...] 10/15/2019 2:26 PM EDT CARDIOLOGY PROGRESS NOTE [facility] [address] ([address]) [facility] [address] [facility] [id number] Physicians: Moises Patel MD [...] plaque stabilization therapy. Coronary artery disease involving [place] coronary artery of [place] heart without angina pectoris Patient has a [...] the review of systems obtained by the biomedical engineering internship. Vitals: Vitals: 10/15/19 1406 BP: (!) 142/85 BP Location: Right arm Patient Position: Sitting BP Cuff Size: X-large Adult Pulse: 83 SpO2: 95% Weight: 120.2 kg (265 lb 1.6 oz) Height: 5' 6 1. TIA (transient ischemic attack) 2. Essential hypertension 3. Mixed hyperlipidemia 4. Coronary artery disease involving [place] coronary artery of [place] heart without angina pectoris 5. Centrilobular emphysema (HCC) 6. ISAC on CPAP 7. Nicotine abuse Anita Rowland MD documented in this encounter* Slim Low, MACHINE I ENGRAVER - 01/29/2019 9:56 AM EST Patient ID: Patient Name: Fernando Helton Admit Date: 01/17/2019 MR #: [id number] : 1970 Current location: [facility] Physicians: Moises Patel MD (Family); Kristin BARCENAS [...] 09/2014 Cardiac arrest with ventricular fibrillation ([facility]) 09/25/2014 CHF (congestive heart failure), NYHA class I, chronic, diastolic (HCC) Chronic sinusitis Claudication of right lower extremity (HCC) Cluster headache COPD (chronic obstructive pulmonary disease) ([facility]) 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 Bev Tolentino Metabolic syndrome Mood disorder ([facility]) Nasal fracture Obstructive sleep apnea noncompliant with CPAP Orthostatic dizziness with intermittent syncope Pericarditis 02/25/07; 09/23/17 Pneumomediastinum ([facility]) 01/12/2007 secondary to severe coughing spell & ruptured alveoli Rotator cuff tear, right 1998 s/p repair SLAP tear of shoulder 2011 left - s/p surgery to place [address] elevation myocardial infarction (STEMI) of anterolateral wall ([facility]) 05/09/2012 anterolateral STEMI involving left anterior descending coronary artery ([facility]) 09/25/2014 anterior Superficial thrombophlebitis of right upper extremity 12/26/2006 Past Surgical History: Procedure Laterality Date APPENDECTOMY 1998 BONE MARROW BIOPSY W/ ASPIRATION Left 11/27/2016 L posterior iliac crest; Dr. Bev Tolentino CABG OFF PUMP N/A 01/24/2019 Procedure: Coronary Artery Bypass graft x1 with Left Internal Mammary Artery graft, OFF PUMP; Surgeon: Neo Mcneil MD; Location: [facility]; Service: Cardiothoracic CARDIAC CATHETERIZATION 09/24/2014 Segment [...] Heart Cath; Surgeon: Carlo Mercedes MD; Location: [facility]; Service: Cardiovascular IABP placement 05/09/[address] 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 [...] Fernando Helton Admit Date: 01/17/2019 MR #: [id number] : 1970 Current location: [facility] Physicians: Moises Patel MD (Family); Kristin BARCENAS [...] History: Diagnosis Date Acute respiratory failure ([facility]) 09/2014 requring mechanical ventilation Anxiety Bilateral lower extremity edema R > L CAD (coronary artery disease) CAD s/p [facility] with 1 stent in left main 07/2012, replaced 09/2014 Cardiac arrest with ventricular fibrillation ([facility]) 09/25/2014 CHF (congestive heart failure), NYHA class I, chronic, diastolic ([facility]) Chronic sinusitis Claudication of right lower extremity ([facility]) Cluster headache COPD (chronic obstructive pulmonary disease) ([facility]) 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 Bev Tolentino Metabolic syndrome Mood disorder ([facility]) Nasal fracture Obstructive sleep apnea noncompliant with CPAP Orthostatic dizziness with intermittent syncope Pericarditis 02/25/07; 09/23/17 Pneumomediastinum ([facility]) 01/12/2007 secondary to severe coughing spell & ruptured alveoli Rotator cuff tear, right 1997 s/p repair SLAP tear of shoulder 2011 left - s/p surgery to place [address] elevation myocardial infarction (STEMI) of anterolateral wall ([facility]) 05/09/2012 anterolateral STEMI involving left anterior descending coronary artery ([facility]) 09/25/2014 anterior Superficial thrombophlebitis of right upper extremity 12/26/2006 Past Surgical History: Procedure Laterality Date APPENDECTOMY 1998 BONE MARROW BIOPSY W/ ASPIRATION Left 11/27/2016 L posterior iliac crest; Dr. Bev Tolentino CABG OFF PUMP N/A 01/24/2019 Procedure: Coronary Artery Bypass graft x1 with Left Internal Mammary Artery graft, OFF PUMP; Surgeon: Neo Mcneil MD; Location: [facility]; Service: Cardiothoracic CARDIAC CATHETERIZATION 09/24/2014 Segment [...] Heart Cath; Surgeon: Carlo Mercedes MD; Location: [facility]; Service: Cardiovascular IABP placement 05/09/[address] 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 He is from home with his spouse and is s/p Cabg post op day #3 An echo has been ordered along with a kub. * Johan Koch PA-C - 01/27/2019 7:44 AM EST Patient ID: Patient Name: Fernando Helton Admit Date: 01/17/2019 MR #: [id number] : 1970 Current location: [facility] Physicians: Moises Patel MD (Family); Kristin BARCENAS [...] L CAD (coronary artery disease) CAD s/p [facility] with 1 stent in left main 07/2012, replaced 09/2014 Cardiac arrest with ventricular fibrillation ([facility]) 09/25/2014 CHF (congestive heart failure), NYHA class I, chronic, diastolic ([facility]) Chronic sinusitis Claudication of right lower extremity ([facility]) Cluster headache COPD (chronic obstructive pulmonary disease) ([facility]) 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 Bev Tolentino Metabolic syndrome Mood disorder ([facility]) Nasal fracture Obstructive sleep apnea noncompliant with CPAP Orthostatic dizziness with intermittent syncope Pericarditis 02/25/07; 09/23/17 Pneumomediastinum (HCC) 01/12/2007 secondary to severe coughing spell & ruptured alveoli Rotator cuff tear, right 1998 s/p repair SLAP tear of shoulder 2011 left - s/p surgery to place [address] elevation myocardial infarction (STEMI) of anterolateral wall ([facility]) 05/09/2012 anterolateral STEMI involving left anterior descending coronary artery ([facility]) 09/25/2014 anterior Superficial thrombophlebitis of right upper [...] Heart Cath; Surgeon: Carlo Mercedes MD; Location: [facility]; Service: Cardiovascular IABP placement 05/09/[address] [...] you. Electronically signed by: Johan Koch PA-C, [facility] 01/27/19 7:47 AM * [...] for pain KUB Serum troponin x3 CPT: 62521 * Melinda Fernandez MD - 01/26/2019 7:51 AM EST Patient ID: Patient Name: Fernando Helton Admit Date: 01/17/2019 MR #: [id number] : 1970 Current location: [facility] Physicians: Moises Patel MD (Family); Kristin BARCENAS [...] History: Diagnosis Date Acute respiratory failure ([facility]) 09/2014 requring mechanical ventilation Anxiety Bilateral lower extremity edema R > L CAD (coronary artery disease) CAD s/p [facility] with 1 stent in left main 07/2012, replaced 09/2014 Cardiac arrest with ventricular fibrillation ([facility]) 09/25/2014 CHF (congestive heart failure), NYHA class I, chronic, diastolic ([facility]) Chronic sinusitis Claudication of right lower extremity ([facility]) Cluster headache COPD (chronic obstructive pulmonary disease) ([facility]) 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 Bev Tolentino Metabolic syndrome Mood disorder ([facility]) Nasal fracture Obstructive sleep apnea noncompliant with CPAP Orthostatic dizziness with intermittent syncope Pericarditis 02/25/07; 09/23/17 Pneumomediastinum (HCC) 01/12/2007 secondary to severe coughing spell & ruptured alveoli Rotator cuff tear, right 1997 s/p repair SLAP tear of shoulder 2011 left - s/p surgery to place [address] elevation myocardial infarction (STEMI) of anterolateral wall ([facility]) 05/09/2012 anterolateral STEMI involving left anterior descending [...] Heart Cath; Surgeon: Carlo Mercedes MD; Location: [facility]; Service: Cardiovascular IABP placement 05/09/[address] [...] IVPB, 1,250 mg, Intravenous, Q12H, Pallavi Barnett [facility],PharmD, Last Rate: 250 mL/hr at 01/25/192058, [...] will defer to the judgement of the human resources leader. Attempted to obtain an echo, but informed [...] deep breath. OBJECTIVE: Right IJ cordis with Kenney-Isaiah catheter, right brachial arterial line, mediastinal and [...] pressurized line, 1,000 mL, Intra-catheter (arterial), Continuous, Doimtila Walker PA-C, 1,000 mL at 01/24/19 1051 sodium nitroPRUSSIDe (NIPRIDE) 50 mg in dextrose (D5W) 5% 250 mL infusion, , Intravenous, Continuous, Kristin Byrnes PA-C, Last Rate: 17.1 mL/hr at 01/25/19 0603 vancomycin (VANCOCIN) 1250 mg in sodium chloride 0.9% (NS) 250 mL IVPB, 1,250 mg, Intravenous, Q12H, Pallavi Barnett [facility],PharmD, Stopped at 01/24/19 2107 vancomycin per pharmacy 1 each, 1 each, Intravenous, as indicated by pharmacokinetics, Kristin Anne PA-C * Melinda Fernandez MD - 01/25/2019 7:55 AM EST Patient ID: Patient Name: Fernando Helton Admit Date: 01/17/2019 MR #: [id number] : 1970 Current location: [facility] Physicians: Moises Patel MD (Family); Kristin BARCENAS [...] L CAD (coronary artery disease) CAD s/p [facility] with 1 stent in left main 07/2012, [...] Bev Tolentino Metabolic syndrome Mood disorder ([facility]) Nasal fracture Obstructive sleep apnea noncompliant with CPAP Orthostatic dizziness with intermittent syncope Pericarditis 02/25/07; 09/23/17 Pneumomediastinum ([facility]) 01/12/2007 secondary to severe coughing spell & ruptured alveoli Rotator cuff tear, right 1997 s/p repair SLAP tear of shoulder 2011 left - s/p surgery to place [address] elevation myocardial infarction (STEMI) of anterolateral wall ([facility]) 05/09/2012 anterolateral STEMI involving left anterior descending coronary artery ([facility]) 09/25/2014 anterior Superficial thrombophlebitis of right upper [...] [facility] CARDIAC CATHETERIZATION 11/24/[address] Rowland [facility] 05/27/2015 CORONARY ANGIOPLASTY 12/25/2014 PCI with [...] Heart Cath; Surgeon: Carlo Mercedes MD; Location: [facility]; Service: Cardiovascular IABP placement 05/09/[address] 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 Cardiac arrest with ventricular fibrillation with [place] on 09/24/2014 21. Acute respiratory failure requiring [...] on to chart N.p.o. after midnight CPT: 28900 * Delmi Donis MD - 01/23/2019 3:26 PM EST [facility] Medicine Inpatient Follow-up 01/23/2019 Delmi Donis MD [facility] Patient: Fernando Helton Date of : 1970 (48 y.o.) PCP: Moises Patel MD ASSESSMENT/PLAN: Fernando Helton 48 y.o. male presented with complains of Active Problems: Chest pain ACS (acute coronary syndrome) ([facility]) PAD (peripheral artery disease) ([facility]) PLAN: Coronary artery disease - pateint denies any chest pain. patient is status post left heart cath on 01/20 he was found to have an in-stent occlusion of the mid LAD. Cardiovascular surgery has been consulted patient scheduled for CABG on 01/24/2019, Dr. Mcneil following PAD; patient seen by vascular surgery today NH: ABIs have been done. 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 Bev Tolentino Metabolic syndrome Mood disorder ([facility]) Nasal fracture Obstructive sleep apnea noncompliant with CPAP Orthostatic dizziness with intermittent syncope Pericarditis 02/25/07; 09/23/17 Pneumomediastinum ([facility]) 01/12/2007 secondary to severe coughing spell & ruptured alveoli Rotator cuff tear, right 1997 s/p repair SLAP tear of shoulder 2011 left - s/p surgery to place [address] elevation myocardial infarction (STEMI) of anterolateral wall ([facility]) 05/09/2012 anterolateral STEMI involving left anterior descending coronary artery ([facility]) 09/25/2014 anterior Superficial thrombophlebitis of right upper [...] Heart Cath; Surgeon: Carlo Mercedes MD; Location: [employer]; Service: Cardiovascular IABP placement 05/09/[address] [...] ISAC and morbid obesity who presented to [facility] on 01/17/2019 with complaints of increasing [...] 20. Cardiac arrest with ventricular fibrillation with Preston on 09/24/2014 21. Acute respiratory failure requiring [...] on to chart N.p.o. 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 He is from home with a spouse. Hehad a heart cath on 01/20 and is a consult with cardiovascular surg and had now been scheduled for aCABG on 01/24. Will follow for any discharge need. * Delmi Donis MD - 01/22/2019 10:05 AM EST [facility] Medicine Inpatient Follow-up 01/22/2019 Delmi Donis MD [facility] Patient: Fernando Helton Date of : 1970 (48 y.o.) PCP: Moises Patel MD ASSESSMENT/PLAN: Fernando Helton 48 y.o. male presented with complains of Active Problems: Chest pain ACS (acute coronary syndrome) (HCC) PAD (peripheral artery disease) ([facility]) PLAN: Chest pain; intermittent, continue to monitor on telemetry; patient is status post left heart cath on 01/20 he was found to have an in-stent occlusion of the mid LAD. Cardiovascular surgery has been consulted Coronary artery disease; cardiovascular surgery has patient was scheduled for CABG on 01/24/2019, Dr. Mcneil following PAD; patient seen by vascular surgery today NH: ABIs have been done. Recommendation follow-up in [...] 01/22/2019 8:52 AM EST Cardiology Progress Note [facility] Cardiology Sign-Off [...] have been negative, EKG showed old anterolateral NH with mild ST-T changes with d-dimer negative [...] Fernando Helton Admit Date: 01/17/2019 MR #: [id number] : 1970 Current location: [facility] Physicians: Moises Patel MD (Family); Kristin BARCENAS [...] History: Diagnosis Date Acute respiratory failure ([facility]) 09/2014 requring mechanical ventilation Anxiety Bilateral lower extremity edema R > L CAD (coronary artery disease) CAD s/p [facility] with 1 stent in left main 07/2012, replaced 09/2014 Cardiac arrest with ventricular fibrillation ([facility]) 09/25/2014 CHF (congestive heart failure), NYHA class I, chronic, diastolic ([facility]) Chronic sinusitis Claudication of right lower extremity ([facility]) Cluster headache COPD (chronic obstructive pulmonary disease) ([facility]) 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 eBv Tolentino Metabolic syndrome Mood disorder ([facility]) Nasal fracture Obstructive sleep apnea noncompliant with CPAP Orthostatic dizziness with intermittent syncope Pericarditis 02/25/07; 09/23/17 Pneumomediastinum ([facility]) 01/12/2007 secondary to severe coughing spell & [...] Heart Cath; Surgeon: Carlo Mercedes MD; Location: [employer]; Service: Cardiovascular IABP placement 05/09/[address] [...] ISAC and morbid obesity who presented to [facility] on 01/17/2019 with complaints of increasing [...] 20. Cardiac arrest with ventricular fibrillation with Preston on 09/24/2014 21. Acute respiratory failure requiring [...] General Cardiology Inpatient Follow-up Heart & Vascular [facility] 01/21/2019 Columba Rodriguez CNP [facility] Patient: Fernando Helton Date of : 1970 (48 y.o.) Referring Provider: No ref. provider found PCP: Moises Patel MD Assessment/Plan: ACS (acute coronary syndrome) ([facility]) Assessment & Plan Patient had presented 01/20/2019 with chest tightness associated with nausea and shortness of breath. Occasionally discomfort would radiate into the left jaw. Serial troponins have been negative, EKG shows old anterolateral NH with mild ST-T changes with d-dimer negative [...] Bev Tolentino Metabolic syndrome Mood disorder ([facility]) Nasal fracture Obstructive sleep apnea noncompliant with CPAP Orthostatic dizziness with intermittent syncope Pericarditis 02/25/07; 09/23/17 Pneumomediastinum ([facility]) 01/12/2007 secondary to severe coughing spell & ruptured alveoli Rotator cuff tear, right 1998 s/p repair SLAP tear of shoulder 2011 left - s/p surgery to place [address] elevation myocardial infarction (STEMI) of anterolateral wall ([facility]) 05/09/2012 anterolateral STEMI involving left anterior descending coronary artery ([facility]) 09/25/2014 anterior Superficial thrombophlebitis of right upper [...] Heart Cath; Surgeon: Carlo Mercedes MD; Location: [employer]; Service: Cardiovascular IABP placement 05/09/[address] [...] injection 20 mg 20 mg Intravenous Q8H [facility] Carlo Mercedes MD 20 mg at [...] 5' 7 Wt 116.6 kg (257 lb) [id number]% BMI 40.25 kg/m Physical Examination: Physical Exam [...] Final Result by Interface, Lab Results In [place] (01/17/2019 1219) Normal sinus rhythm Low voltage QRS Inferior infarct , age undetermined Cannot rule out Anteroseptal infarct , age undetermined Abnormal ECG ECG Cart Interpretation see physician note for interpretation. Confirmed by Brandy Kc ([id number]) on 01/17/2019 12:18:52 PM Columba Rodriguez CNP * Ashley Caruso CNP - 01/21/2019 12:30 PM EST [facility] Medicine Inpatient Follow-up 01/21/2019 Ashley Caruso CNP [facility] Patient: Fernando Helton Date of : 1970 (48 y.o.) PCP: Moises Patel MD ASSESSMENT/PLAN: Fernando Helton 48 y.o. male presented with complains of Active Problems: Chest pain ACS (acute coronary syndrome) ([facility]) PAD (peripheral artery disease) ([facility]) PLAN: Chest pain; intermittent, continue to monitor [...] PAD; patient seen by vascular surgery today NH: ABIs have been done. Recommendation follow-up in [...] 5' 7 Wt 116.6 kg (257 lb) [id number]% BMI 40.25 kg/m General Appearance: Alert, well [...] Navarro CNP - 01/20/2019 12:25 PM EST [facility] Medicine Inpatient H&P 01/20/2019 Jacinda Navarro CNP [facility] Patient: Fernando Helton Date of : 1970 [...] Chest pain ACS (acute coronary syndrome) ([facility]) Plan: Will admit patient to the telemetry [...] L CAD (coronary artery disease) CAD s/p [facility] with 1 stent in left main 07/2012, [...] Bev Tolentino Metabolic syndrome Mood disorder ([facility]) Nasal fracture Obstructive sleep apnea noncompliant with [...] Navarro CNP - 01/19/2019 10:57 AM EST [facility] Medicine Inpatient H&P 01/19/2019 Jacinda Navarro CNP [facility] Patient: Fernando Helton Date of : 1970 [...] leg COPD (chronic obstructive pulmonary disease) ([facility]) Fatigue GERD (gastroesophageal reflux disease) Headache HLD (hyperlipidemia) HTN (hypertension) Metabolic syndrome Mood disorder ([facility]) Obstructive sleep apnea Pneumomediastinum ([facility]) 01/2007 Rotator cuff tear, right 1997 s/p repair SLAP tear of shoulder 2011 left - s/p surgery to place [address] elevation myocardial infarction (STEMI) of anterolateral wall ([facility]) 05/09/12 Past Surgical History: Procedure Laterality Date [...] Navarro CNP - 01/18/2019 10:36 AM EST [facility] Medicine Inpatient H&P 01/18/2019 Jacinda Navarro CNP [facility] Patient: Fernando Helton Date of : 1970 [...] leg COPD (chronic obstructive pulmonary disease) ([facility]) Fatigue GERD (gastroesophageal reflux disease) Headache HLD (hyperlipidemia) HTN (hypertension) Metabolic syndrome Mood disorder ([facility]) Obstructive sleep apnea Pneumomediastinum ([facility]) 01/2007 Rotator cuff tear, right 1997 s/p repair SLAP tear of shoulder 2011 left - s/p surgery to place [address] elevation myocardial infarction (STEMI) of anterolateral wall ([facility]) 05/09/12 Past Surgical History: Procedure Laterality Date [...] General Cardiology Clinic Follow-up Heart & Vascular [facility] 12/26/2018 Maykel Whitney MD [address] [place] [address] [facility] [id number] Patient: Fernando Helton Date of : 1970 (48 y.o.) PCP: Moises Patel MD Assessment & Plan Heart failure ([facility]) I believe he has acute on chronic [...] Final Result by Magda Durán MD (12/10/2018 0799) Review of Systems: Review of Systems Constitution: [...] than 130 mmHg. TANNER PALMA MSc, . [email or web address] Staff Neurologist & Movement Disorder Specialist [facility] (Adj Asst: Professor, [employer] Dept of Neurology) ELLIOT Peterson [facility]# [id number], [facility] [address] [facility] Fax: [phone] documented in this encounter Summary Purpose Family History No Family History Records FoundNo Family History Records FoundNo Family History Records FoundNo Family History Records FoundNo Family History Records FoundNo Family History Records FoundNo Family History Records FoundNo Family History Records FoundNo Family History Records Found Advance Directives No Advanced Directives Records FoundDocuments on File Type Date Recorded Patient Blood Tester Expl anation Advance Directives and Livin g Will 09/27/2018 7:30 PM Documents on File Type Date Recorded Patient Blood Tester Expl anation Advance Directives and Livin g Will 12/18/2018 10:26 AM Documents on File Type Date Recorded Patient Blood Tester Expl anation Advance Directives and Livin g Will 01/17/2019 12:26 PM Latest Code Status on File Code Status Date Activated Date Inactivated Comments Full Code 01/20/2019 9:05 AM Full Code - Unverified 01/17/2019 4:34 PM 01/20/2019 9:0 5 AM Documents on File Type Date Recorded Patient Blood Tester Expl anation Advance Directives and Livin g Will 01/31/2019 8:54 AM Latest Code Status on File Code Status Date Activated Date Inactivated Comments Full Code 01/24/2019 10:19 AM Full Code 01/20/2019 9:05 AM 01/24/2019 10:19 AM Full Code - Unverified 01/17/2019 4:34 PM 01/20/2019 9:0 5 AM Documents on File Type Date Recorded Patient Blood Tester Expl anation Advance Directives and Livin g Will 02/02/2019 9:03 AM Latest Code Status on File Code Status Date Activated Date Inactivated Comments Full Code 02/02/2019 10:37 AM Full Code 01/24/2019 10:19 AM 02/02/2019 10:22 AM Full Code 01/20/2019 9:05 AM 01/24/2019 10:19 AM Documents on File Type Date Recorded Patient Blood Tester Expl anation Advance Directives and Livin g Will 02/06/2019 12:35 PM Latest Code Status on File Code Status Date Activated Date Inactivated Comments Full Code 02/02/2019 10:37 AM Full Code 01/24/2019 10:19 AM 02/02/2019 10:22 AM Documents on File Type Date Recorded Patient Blood Tester Expl anation Advance Directives and Livin g Will 02/13/2019 8:39 AM Documents on File Type Date Recorded Patient Blood Tester Expl anation Advance Directives and Livin g Will 02/21/2019 8:55 AM Documents on File Type Date Recorded Patient Blood Tester Expl anation Advance Directives and Livin g Will 02/25/2019 8:52 PM Latest Code Status on File Code Status Date Activated Date Inactivated Comments Full Code 02/02/2019 10:37 AM 02/25/2019 8:18 PM Documents on File Type Date Recorded Patient Blood Tester Expl anation Advance Directives and Livin g Will 02/25/2019 8:52 PM Latest Code Status on File Code Status Date Activated Date Inactivated Comments Full Code 02/02/2019 10:37 AM 02/25/2019 8:18 PM Documents on File Type Date Recorded Patient Blood Tester Expl anation Advance Directives and Livin g Will 03/13/2019 10:55 AM Documents on File Type Date Recorded Patient Blood Tester Expl anation Advance Directives and Livin g Will 03/13/2019 10:55 AM Documents on File Type Date Recorded Patient Blood Tester Expl anation Advance Directives and Livin g Will 09/22/2019 9:34 AM Latest Code Status on File Code Status Date Activated Date Inactivated Comments Full Code 09/22/2019 10:48 AM 09/23/2019 7:50 PM Full Code 02/02/2019 10:37 AM 02/25/2019 8:18 PM Documents on File Type Date Recorded Patient Blood Tester Expl anation Advance Directives and Livin g Will 10/15/2019 10:09 PM Latest Code Status on File Code Status Date Activated Date Inactivated Comments Full Code 10/16/2019 12:56 AM 10/16/2019 6:18 PM Full Code 09/22/2019 10:48 AM 09/23/2019 7:50 PM Documents on File Type Date Recorded Patient Blood Tester Expl anation Advance Directives and Livin g Will 12/10/2018 7:30 PM Documents on File Type Date Recorded Patient Blood Tester Expl anation Advance Directives and Livin g Will 10/15/2019 10:09 PM Latest Code Status on File Code Status Date Activated Date Inactivated Comments Full Code 10/16/2019 12:56 AM 10/16/2019 6:18 PM Full Code 09/22/2019 10:48 AM 09/23/2019 7:50 PM Full Code 02/02/2019 10:37 AM 02/25/2019 8:18 PM Documents on File Type Date Recorded Patient Blood Tester Expl anation Advance Directives and Livin g Will 01/17/2019 12:26 PM Documents on File Type Date Recorded Patient Blood Tester Expl anation Advance Directives and Livin g Will 01/04/2019 5:09 PM Documents on File Type Date Recorded Patient Blood Tester Expl anation Advance Directives and Livin g Will 12/18/2018 10:26 AM Documents on File Type Date Recorded Patient Blood Tester Expl anation Advance Directives and Livin g Will 09/22/2019 9:34 AM Latest Code Status on File Code Status Date Activated Date Inactivated Comments Full Code 09/22/2019 10:48 AM 09/23/2019 7:50 PM Documents on File Type Date Recorded Patient Blood Tester Expl anation Advance Directives and Livin g Will 05/28/2020 3:48 PM Documents on File Type Date Recorded Patient Blood Tester Expl anation Advance Directives and Livin g Will 05/28/2020 3:48 PM Documents on File Type Date Recorded Patient Blood Tester Expl anation Advance Directives and Livin g Will 06/02/2020 3:48 PM Latest Code Status on File Code Status Date Activated Date Inactivated Comments Full Code - Unverified 06/02/2020 8:25 AM 06/02/2020 5:1 8 PM Full Code 10/16/2019 12:56 AM 10/16/2019 6:18 PM Documents on File Type Date Recorded Patient Blood Tester Expl anation Advance Directives and Livin g Will 06/10/2020 3:48 PM Documents on File Type Date Recorded Patient Blood Tester Expl anation Advance Directives and Livin g Will 06/10/2020 3:48 PM Latest Code Status on File Code Status Date Activated Date Inactivated Comments Full Code - Unverified 06/02/2020 8:25 AM 06/02/2020 5:1 8 PM Full Code 10/16/2019 12:56 AM 10/16/2019 6:18 PM Documents on File Type Date Recorded Patient Blood Tester Expl anation Advance Directives and Livin g Will 08/06/2020 3:48 PM Documents on File Type Date Recorded Patient Blood Tester Expl anation Advance Directives and Livin g [...] December 07, 2022 2:37pm Hospital Course Note [facility] [address] [place] [address] NAME FERNANDO HELTON [facility] [id number] 1970 ADMIT 09/23/2017 DISCH 09/25/2017 DISCHARGE SUMMARY [...] Log into your personal health record on [email or web address] and enter K111 in the Education box to learn more about Using a Metered-Dose Inhaler: Care Instructions. Current as of: October 17, 2017 Content Version: .[id number] [employer]. Care instructions adapted under license by your healthcare professional. If you have questions about a medical condition or this instruction, always ask your healthcare professional. [employer] disclaims any warranty or liability for your [...] Log into your personal health record on [email or web address] and enter U629 in the Education box to learn more about Learning About Chronic Bronchitis. Current as of: October 17, 2017 Content Version: [id number] [employer]. Care instructions adapted under license by your healthcare professional. If you have questions about a medical condition or this instruction, always ask your healthcare professional. [employer] disclaims any warranty or liability for your use of this information. Please take your breathing treatments every 4-6 hours as directed. * Attachments The following attachments cannot be sent through Care Everywhere. * COPD Exacerbation Plan (Pakistani) documented in this encounter* Discharge Instr - AVS First Page* Kristin Byrnes PA-C - 01/23/2019 9:08 AM EST ALL ORDERS PER Dr. Neo Mcneil AND HIS TEAM ONLY. CALL CARDIAC SURGERY FOR ANY QUESTIONS/CONCERNSAT [phone], (OPTION #3 after 5 PM and on [...] Fernandez's office 4. Dr. Fernandez's phone number: [phone] Fernandez's fax number: [phone] HISTORY OF CONGESTIVE HEART FAILURE: 1. Check: [...] Fernandez's office 4. Dr. Fernandez's phone number: [phone] Fernandez's fax number: [phone] HISTORY OF CONGESTIVE HEART FAILURE: 1. Check: [...] be sent through Care Everywhere. * Pleurisy (Pakistani) documented in this encounter* Instructions* Brian Cordoba MD - 01/04/2019 prednisone for 5 days; and DuoNeb; stay away from passive smoking; follow-up with the PCP * Attachments The following attachments cannot be sent through Care Everywhere. * COPD: General Info (Pakistani) documented in this encounter* Discharge Instr - IP OT* Magda Brito OTR/Priyanka - 09/23/2019 3:39 PM EDT No further occupational therapy is needed. documented in this encounter Reason for Referral Status Reason Specialty Diagnoses / Procedures Referred By Contact Referred To Contact Pending Review Cardiology Diagnoses S/P CABG (coronary artery bypass graft) Procedures Stress test only, exercise Carlo Mercedes MD [address] [place] [address] Status Reason Specialty Diagnoses / Procedures Referred By Contact Referred To Contact Authorized Cardiology Diagnoses Coronary artery disease involving [place] coronary artery of [place] heart without angina pectoris Procedures Echocardiogram complete Anita Rowland MD [address] [place] [address] Status Reason Specialty Diagnoses / Procedures Referred By Contact Referred To Contact Authorized Cardiology Diagnoses TIA (transient ischemic attack) Procedures Cardiac event monitor Anita Rowland MD [address] [place] [address] Status Reason Specialty Diagnoses / Procedures Referre d By Contact Referred To Contact Closed Cardiology Diagnoses TIA (transient ischemic attack) Procedures Cardiac event monitor Anita Rowland MD [address] [place] [address] Status Reason Specialty Diagnoses / Procedures Referred By Contact Referred To Contact Authorized Radiology Diagnoses Chronic systolic congestive heart failure (HCC) Procedures MR Cardiac Morphology With And Without Contrast with Velocity Flow Patricia Louis, CHRISTIAN [address] [place] [address] Status Reason Specialty Diagnoses / Procedures Referre d By Contact Referred To Contact Closed Radiology Diagnoses NSVT (nonsustained ventricular tachycardia) ([facility]) Abnormal EKG Procedures NM Myocardial Perfusion Multiple SPECT Anita Rowland MD [address] [place] [address] Status Reason Specialty Diagnoses / Procedures Re ferred By Contact Referred To Contact Closed Cardiology Diagnoses Other specified complications of surgical and medical care, not elsewhere classified, initial encounter Procedures Ultrasound duplex arterial arm left Anita Rowland MD [address] [place] [address] Status Reason Specialty Diagnoses / Procedures Referred By Contact Referred To Contact Pending Review Cardiology Diagnoses Other specified complications of surgical and medical care, not elsewhere classified, initial encounter Procedures Ultrasound duplex arterial arm left Anita Rowland MD [address] [place] [address] Chief Complaint and Reason for Visit Chief [...] with Velocity Flow Patricia Louis CNS [address] [place] [address] Status Reason Specialty Diagnoses / Procedures Referre [...] artery bypass graft) Kristin Walker PA-C [address] [place] [address] Cardio Pulm [address] [place] [address] Status Reason Specialty Diagnoses / Procedures Referred By Contact Referred To Contact Pending Review Cardiology Diagnoses S/P CABG (coronary artery bypass graft) Procedures Stress test only, exercise Carlo Mercedes MD [address] [place] [address] Reason Comments Heart Problem Status Reason Specialty Diagnoses / Procedures Referred By Contact Referred To Contact Authorized Specialty Services Required/Patie nt's Best Interest Cardiac Rehabilitation Diagnoses S/P CABG (coronary artery bypass graft) Kristin Walker PA-C [address] [place] [address] Cardio Pulm [address] [place] [address] Reason Comments Follow-up Follow up/Swelling Reason Comments Follow-up Overdue 6 monhth Status Reason Specialty Diagnoses / Procedures Referre d By Contact Referred To Contact Diagnoses Near syncope Status Reason Specialty Diagnoses / Procedures Referred By Contact Referred To Contact Pending Review Cardiology Diagnoses Chronic systolic heart failure (HCC) Hypertension, unspecified type Coronary artery disease involving [place] coronary artery of [place] heart without angina pectoris Procedures Echocardiogram complete w contrast Echocardiogram complete Patricia Louis CNS [address] [place] [address] Reason Onset Date Comments Medication Refill 04/12/2020 Reason Onset Date Comments Medication Refill 04/13/2020 Status Reason Specialty Diagnoses / Procedures Referred By Contact Referred To Contact Authorized Radiology Diagnoses Chronic systolic congestive heart failure (HCC) Procedures MR Cardiac Morphology With And Without Contrast with Velocity Flow Patricia Louis, TALENT SOURCING SPECIALIST [address] [place] [address] Status Reason Specialty Diagnoses / Procedures Referre [...] Contact Diagnoses Acute CVA (cerebrovascular accident) ([facility]) TIA (transient ischemic attack) Status Reason Specialty Diagnoses / Procedures Referre d By Contact Referred To Contact Closed Radiology Diagnoses NSVT (nonsustained ventricular tachycardia) ([facility]) Abnormal EKG Procedures NM Myocardial Perfusion Multiple SPECT Anita Rowland MD [address] [place] [address] Status Reason Specialty Diagnoses / Procedures Referre [...] arterial arm left Anita Rowland MD [address] [place] [address] Reason Onset Date Comments Medication Refill 06/10/2020 Status Reason Specialty Diagnoses / Procedures Referred By Contact Referred To Contact Pending Review Cardiology Diagnoses Other specified complications of surgical and medical care, not elsewhere classified, initial encounter Procedures Ultrasound duplex arterial arm left Anita Rowland MD [address] [place] [address] Reason Comments Medication Refill Reason Onset Date [...] content) DATE CREATED AUTHOR 03/14/2018 [facility] DATE CREATED AUTHOR AUTHOR'S ORGANIZ ATION 04/27/2020 [facility] DATE CREATED AUTHOR AUTHOR'S ORGANIZ ATION 05/23/2020 [facility] DATE CREATED AUTHOR AUTHOR'S ORGANIZ ATION 04/28/2021 [facility] DATE CREATED AUTHOR AUTHOR'S ORGANIZ ATION 11/12/2021 [facility] DATE CREATED AUTHOR AUTHOR'S ORGANIZ ATION 11/14/2021 [facility] DATE CREATED AUTHOR AUTHOR'S ORGANIZ ATION 01/02/2022 [facility] DATE CREATED AUTHOR AUTHOR'S ORGANIZ ATION 06/23/2022 [facility] DATE CREATED AUTHOR AUTHOR'S ORGANIZ ATION 12/20/2022 [facility] Annie Kapadia RN - 09/27/2018 8:19 PM Annie Fu RN - 09/27/2018 8:17 PM Nathanael Pavon MD - 09/27/2018 8:13 PM Annie Fu RN - 09/27/2018 7:48 PM EDT ED Notes (unrecognized secti on and content) Adjusted PT in bed Physician at bedside. Updated PT on medical plan. Associated Order(s): ECG 12 Lead ED PROVIDER NOTE [facility] NAME: Fernando Helton AGE: 48 y.o. : 1970 VISIT DATE: 09/27/2018 CSN: [id number] PCP: Moises Patel MD Chief Complaint Patient [...] 1998 CAD (coronary artery disease) CAD s/p [facility] with 1 stent in left main 07/2012, [...] file Gets together: Not on file Attends adventist service: Not on file Active member of [...] ms QTC Calculation (Bezet) 425 ms P [place] 62 degrees R [place] 0 degrees T [place] 72 degrees POC Basic Metabolic Panel Result [...] Family Medicine Why: If symptoms worsen [address] [facility] [address] Contact information for after-discharge care Follow-up information [...] SIMILAR TO WHEN HE HAD HIS PRIOR NH. PT LOCATES IT IN THE MIDDLE OF HIS CHEST AND RADIATES TO HIS BACK AND JAW. PT STATES HE IS SOB, SUFFERS COPD BUT NOT O2 DEPENDANT. PT IS ABLE TO SPEAK IN COMPLETE SENTENCES WITHOUT DIFFICULTY. PT DOES HAVE SOME AUDIBLE WHEEZING. PT IS WARM AND DRY ED PROVIDER NOTE [facility] NAME: Fernando Helotn AGE: 48 y.o. : 1970 VISIT DATE: 01/17/2019 CSN: [id number] PCP: Moises Patel MD Chief Complaint Patient [...] leg COPD (chronic obstructive pulmonary disease) ([facility]) Fatigue GERD (gastroesophageal reflux disease) Headache HLD (hyperlipidemia) HTN (hypertension) Metabolic syndrome Mood disorder ([facility]) Obstructive sleep apnea Pneumomediastinum ([facility]) 01/2007 Rotator cuff tear, right 1997 s/p repair SLAP tear of shoulder 2011 left - s/p surgery to place [address] elevation myocardial infarction (STEMI) of anterolateral wall ([facility]) 05/09/12 Past Surgical History: Procedure Laterality Date [...] file Gets together: Not on file Attends adventist service: Not on file Active member of [...] ms QTC Calculation (Bezet) 425 ms P [place] 67 degrees R [place] 2 degrees T [place] 65 degrees CBC Auto Differential Result Value [...] rhythm rate of 73 beats per minutes MN interval 164 ms QRS duration 86 ms [...] MESSAGE FOR HER TO CALL BACK. 22:53 [facility] ED Physician Note: NAME: Fernando Helton 48 y.o. CSN: [id number] PCP: Moises Patel MD History: Chief Complaint: Shortness of Breath HPI: The history was obtained from the patient. He is a 48 y.o. male who presents with a chief complaint of Shortness of Breath. Patient reports that he underwent coronary artery bypass grafting over 4 weeks ago here at [facility]. Patient reports that around 1 PM he developed sudden onset of dyspnea. Patient reports this to be accompanied by left lung discomfort. Patient describes discomfort as sharp. Shortness of breath is present at rest and worsens with movement. PMHx: Past Medical History: Diagnosis Date Acute respiratory failure ([facility]) 09/2014 requring mechanical ventilation Anxiety Bilateral lower extremity edema R > L CAD (coronary artery disease) CAD s/p [facility] with 1 stent in left main 07/2012, replaced 09/2014 Cardiac arrest with ventricular fibrillation ([facility]) 09/25/2014 CHF (congestive heart failure), NYHA class I, chronic, diastolic ([facility]) Chronic sinusitis Claudication of right lower extremity ([facility]) Cluster headache COPD (chronic obstructive pulmonary disease) ([facility]) 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 [...] file Gets together: Not on file Attends adventist service: Not on file Active member of [...] Procedure Abnormality Status --------- ------ CBC Auto Differential[[id number]] Abnormal Final result Please view results for [...] No diagnosis found. Disposition: Fausto Alejandro M.D. [facility] Emergency Department Fausto Alejandro MD 02/25/19 2249 PT STATES SHORTNESS OF BREATH STARTED AT 1PM TODAY, WITH LEFT SIDE BACK PAIN, PT STATES HAD BYPASS SURGERY FIVE WEEKS AGO AND AT THAT TIME HAD FLUID AROUND LEFT LUNG AND THIS FEELS LIKE THAT Bed: 09 Expected date: Expected time: Means of arrival: Comments: 2nd patient documented in this encounter ED PROVIDER NOTE [facility] NAME: Fernando Helton AGE: 49 y.o. : 1970 VISIT DATE: 10/15/2019 CSN: [id number] PCP: Moises Patel MD Chief Complaint Patient [...] Bev Tolentino Metabolic syndrome Mood disorder ([facility]) Nasal fracture Obstructive sleep apnea noncompliant with CPAP Orthostatic dizziness with intermittent syncope Pericarditis 02/25/07; 09/23/17 Pneumomediastinum ([facility]) 01/12/2007 secondary to severe coughing spell & ruptured alveoli Rotator cuff tear, right 1998 s/p repair SLAP tear of shoulder 2011 left - s/p surgery to place [address] elevation myocardial infarction (STEMI) of anterolateral wall ([facility]) 05/09/2012 anterolateral STEMI involving left anterior descending coronary artery ([facility]) 09/25/2014 anterior Superficial thrombophlebitis of right upper [...] diastolic dysf.; single vessel CAD by Dr. Whitnye CARDIAC CATHETERIZATION 05/09/2012 Emergent. Severe LVSD EF [...] Heart Cath; Surgeon: Carlo Mercedes MD; Location: [employer]; Service: Cardiovascular IABP placement 05/09/[address] [...] file Gets together: Not on file Attends adventist service: Not on file Active member of [...] Motor: No weakness or pronator drift. Coordination: Ytvdct-Bjuk-Wjpter Test normal. Psychiatric: Attention and Perception: Attention [...] ms QTC Calculation (Bezet) 461 ms P [place] 61 degrees R [place] -4 degrees T [place] 80 degrees POC Glucose Result Value Ref [...] Order(s): ECG 12- Lead ED PROVIDER NOTE [facility] NAME: Fernando Helton AGE: 48 y.o. : 1970 VISIT DATE: 01/04/2019 CSN: [id number] PCP: Moises Patel MD Chief Complaint Patient presents with Shortness of Breath x2 months CC: Waxing and waning shortness of breath x2 months HPI: Patient with a past medical history of COPD; presented to the ER with waxing and waning shortness of breath going on for 2 months; no significant expectoration; shortness of breath gets worse after ambulation; patient also history of NH in the past requiring stent placement 2012 and 2014; patient follows up with the human resources leader; recently had echocardiogram; that as per him shows ejection fraction around 46%; recently had a cardiac MRI; human resources leader thinks that he does not have CHF; patient does have a leg edema; and has been prescribed hydrochlorothiazide; which she has been taking; but still getting short of breath; experiences of wheezing; use albuterol and nebulization; not feeling better; no fever no chills Past Medical History: Diagnosis Date Ankle swelling Anxiety Appendicitis 1998 s/p appendectomy 1998 CAD (coronary artery disease) CAD s/p [facility] with 1 stent in left main 07/2012, replaced 09/2014 Chest pain Circulation problem right leg COPD (chronic obstructive pulmonary disease) ([facility]) Fatigue GERD (gastroesophageal reflux disease) Headache HLD (hyperlipidemia) HTN (hypertension) Metabolic syndrome Mood disorder ([facility]) Obstructive sleep apnea Pneumomediastinum ([facility]) 01/2007 Rotator cuff tear, right 1997 s/p repair SLAP tear of shoulder 2011 left - s/p surgery to place [address] elevation myocardial infarction (STEMI) of anterolateral wall ([facility]) 05/09/12 Past Surgical History: Procedure Laterality Date [...] file Gets together: Not on file Attends adventist service: Not on file Active member of [...] with signage outside this patient's room. This laboratory animal caretaker performs hand hygiene and enters the patient [...] Wu on virtual screen ED PROVIDER NOTE [facility] NAME: Fernando Helton AGE: 49 y.o. : 1970 VISIT DATE: 09/22/2019 CSN: [id number] PCP: Moises Patel MD Chief Complaint Patient [...] L CAD (coronary artery disease) CAD s/p [facility] with 1 stent in left main 07/2012, replaced 09/2014 Cardiac arrest with ventricular fibrillation ([facility]) 09/25/2014 CHF (congestive heart failure), NYHA class I, chronic, diastolic ([facility]) Chronic sinusitis Claudication of right lower extremity ([facility]) Cluster headache COPD (chronic obstructive pulmonary disease) ([facility]) 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 Bev Tolentino Metabolic syndrome Mood disorder ([facility]) Nasal fracture Obstructive sleep apnea noncompliant with CPAP Orthostatic dizziness with intermittent syncope Pericarditis 02/25/07; 09/23/17 Pneumomediastinum ([facility]) 01/12/2007 secondary to severe coughing spell & ruptured alveoli Rotator cuff tear, right 1998 s/p repair SLAP tear of shoulder 2011 left - s/p surgery to place [address] elevation myocardial infarction (STEMI) of anterolateral wall ([facility]) 05/09/2012 anterolateral STEMI involving left anterior descending coronary artery ([facility]) 09/25/2014 anterior Superficial thrombophlebitis of right upper extremity 12/26/2006 Past Surgical History: Procedure Laterality Date APPENDECTOMY 1998 BONE MARROW BIOPSY W/ ASPIRATION Left 11/27/2016 L posterior iliac crest; Dr. Bev Tolentino CABG OFF PUMP N/A 01/24/2019 Procedure: Coronary Artery Bypass graft x1 with Left Internal Mammary Artery graft, OFF PUMP; Surgeon: Neo Mcneil MD; Location: [facility]; Service: Cardiothoracic CARDIAC CATHETERIZATION 09/24/2014 Segment [...] Heart Cath; Surgeon: Carlo Mercedes MD; Location: [employer]; Service: Cardiovascular IABP placement 05/09/[address] [...] file Gets together: Not on file Attends adventist service: Not on file Active member of [...] normal sinus rhythm rate of 67 bpm MN interval 172 ms QRS duration 86 ms [...] Fernando Helton Admit Date: [id number] MR #: [id number] : 1970 Physicians: Moises Patel MD (Family); [...] History: Diagnosis Date Acute respiratory failure ([facility]) 09/2014 requring mechanical ventilation Anxiety Bilateral lower extremity edema R > L CAD (coronary artery disease) CAD s/p [facility] with 1 stent in left main 07/2012, replaced 09/2014 Cardiac arrest with ventricular fibrillation ([facility]) 09/25/2014 CHF (congestive heart failure), NYHA class I, chronic, diastolic ([facility]) Chronic sinusitis Claudication of right lower extremity ([facility]) Cluster headache COPD (chronic obstructive pulmonary disease) ([facility]) 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 Bev Tolentino Metabolic syndrome Mood disorder ([facility]) Nasal fracture Obstructive sleep apnea noncompliant with CPAP Orthostatic dizziness with intermittent syncope Pericarditis 02/25/07; 09/23/17 Pneumomediastinum ([facility]) 01/12/2007 secondary to severe coughing spell & ruptured alveoli Rotator cuff tear, right 1997 s/p repair SLAP tear of shoulder 2011 left - s/p surgery to place [address] elevation myocardial infarction (STEMI) of anterolateral wall ([facility]) 05/09/2012 anterolateral STEMI involving left anterior descending coronary artery ([facility]) 09/25/2014 anterior Superficial thrombophlebitis of right upper extremity 12/26/2006 Past Surgical History: Procedure Laterality Date APPENDECTOMY 1998 BONE MARROW BIOPSY W/ ASPIRATION Left 11/27/2016 L posterior iliac crest; Dr. Bev Tolentino CABG OFF PUMP N/A 01/24/2019 Procedure: Coronary Artery Bypass graft x1 with Left Internal Mammary Artery graft, OFF PUMP; Surgeon: Neo Mcneil MD; Location: [facility]; Service: Cardiothoracic CARDIAC CATHETERIZATION 09/24/2014 Segment [...] Heart Cath; Surgeon: Carlo Mercedes MD; Location: [employer]; Service: Cardiovascular IABP placement 05/09/[address] [...] file Gets together: Not on file Attends adventist service: Not on file Active member of [...] patient's participation in this plan of care: NH, CABG. 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 Bev Tolentino Metabolic syndrome Mood disorder ([facility]) Nasal fracture Obstructive sleep apnea noncompliant with CPAP Orthostatic dizziness with intermittent syncope Pericarditis 02/25/07; 09/23/17 Pneumomediastinum ([facility]) 01/12/2007 secondary to severe coughing spell & ruptured alveoli Rotator cuff tear, right 1998 s/p repair SLAP tear of shoulder 2011 left - s/p surgery to place [address] elevation myocardial infarction (STEMI) of anterolateral wall ([facility]) 05/09/2012 anterolateral STEMI involving left anterior descending coronary artery ([facility]) 09/25/2014 anterior Superficial thrombophlebitis of right upper [...] Heart Cath; Surgeon: Carlo Mercedes MD; Location: [employer]; Service: Cardiovascular IABP placement 05/09/[address] [...] of Care. Associated Order(s): IP CONSULT TO ENAMEL SPRAYER Met with patient for Diabetes self management [...] a barrier and family/caregiver support is a hardware technician for return to prior level of function. The patient's education level is a hardware technician and awareness of own capacity and performance is a hardware technician to return to prior level of function. 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 Past Medical History: Diagnosis Date Acute respiratory failure (HCC) 09/2014 requring mechanical ventilation Anxiety Bilateral lower extremity edema R > L CAD (coronary artery disease) CAD s/p [facility] with 1 stent in left main 07/2012, replaced 09/2014 Cardiac arrest with ventricular fibrillation ([facility]) 09/25/2014 CHF (congestive heart failure), NYHA class I, chronic, diastolic ([facility]) Chronic sinusitis Claudication of right lower extremity ([facility]) Cluster headache COPD (chronic obstructive pulmonary disease) ([facility]) 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 Bev Tolentino Metabolic syndrome Mood disorder ([facility]) Nasal fracture Obstructive sleep apnea noncompliant with CPAP Orthostatic dizziness with intermittent syncope Pericarditis 02/25/07; 09/23/17 Pneumomediastinum ([facility]) 01/12/2007 secondary to severe coughing spell & ruptured alveoli Rotator cuff tear, right 1997 s/p repair SLAP tear of shoulder 2011 left - s/p surgery to place [address] elevation myocardial infarction (STEMI) of anterolateral wall ([facility]) 05/09/2012 anterolateral STEMI involving left anterior descending coronary artery ([facility]) 09/25/2014 anterior Superficial thrombophlebitis of right upper [...] Heart Cath; Surgeon: Carlo Mercedes MD; Location: [employer]; Service: Cardiovascular IABP placement 05/09/[address] Rowland NASAL SEPTUM SURGERY 06/25/[address] Gaiatn ROTATOR CUFF REPAIR Right 1997 SHOULDER ARTHROSCOPY [...] Fernando Helton Admit Date: [id number] MR #: [id number] : 1970 Physicians: Moises Patel MD (Family); No ref. provider found (referring) Assessment and Plan: PAD (peripheral artery disease) ([facility]) Assessment & Plan Vascular was consulted regarding [...] myocardial infarction (STEMI) of anterolateral wall ([facility]) 05/09/2012 anterolateral STEMI involving left anterior descending coronary artery ([facility]) 09/25/2014 anterior Superficial thrombophlebitis of right upper [...] file Gets together: Not on file Attends adventist service: Not on file Active member of [...] Fernando Helton Admit Date: 01/17/2019 MR #: [id number] : 1970 Current location: [facility] Physicians: Moisse Patel MD (Family); Kristin BARCENAS (Referring) Reason [...] 09/2014 Cardiac arrest with ventricular fibrillation ([facility]) 09/25/2014 CHF (congestive heart failure), NYHA class I, chronic, diastolic ([facility]) Chronic sinusitis Claudication of right lower extremity ([facility]) Cluster headache COPD (chronic obstructive pulmonary disease) ([facility]) 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 Bev Tolentino Metabolic syndrome Mood disorder ([facility]) Nasal fracture Obstructive sleep apnea noncompliant with CPAP Orthostatic dizziness with intermittent syncope Pericarditis 02/25/07; 09/23/17 Pneumomediastinum ([facility]) 01/12/2007 secondary to severe coughing spell & ruptured alveoli Rotator cuff tear, right 1997 s/p repair SLAP tear of shoulder 2011 left - s/p surgery to place [address] elevation myocardial infarction (STEMI) of anterolateral wall ([facility]) 05/09/2012 anterolateral STEMI involving left anterior descending coronary artery ([facility]) 09/25/2014 anterior Superficial thrombophlebitis of right upper [...] Dr. Gaitan IABP placement 05/09/[address] Rwoland NASAL SEPTUM SURGERY 06/25/[address] Gaitan [...] Eliquis for in-stent thrombosis, who presented to [facility] emergency department on 01/17/2019 with worsening chest [...] Melanoma Brother SOCIAL HISTORY: Patient resides in [place] in a two-story home with approximately 15 [...] file Gets together: Not on file Attends adventist service: Not on file Active member of [...] and diaphoresis. On 01/17/2019, patient presented to [facility] and was admitted for further evaluation by [...] CONSULT TO CARDIOLOGY Reason for consult-chest pain COCOPAH-patient is a pleasant 48-year-old man with medical history significant for CAD status post PCI to LAD in 2012 for NH presentation-presented again in 2014 with in-stent restenosis-underwent [...] have been negative, EKG shows old anterolateral NH with mild ST-T changes, d-dimer is negative [...] 1998 CAD (coronary artery disease) CAD s/p [facility] with 1 stent in left main 07/2012, replaced 09/2014 Chest pain Circulation problem right leg COPD (chronic obstructive pulmonary disease) ([facility]) Fatigue GERD (gastroesophageal reflux disease) Headache HLD (hyperlipidemia) HTN (hypertension) Metabolic syndrome Mood disorder ([facility]) Obstructive sleep apnea Pneumomediastinum ([facility]) 01/2007 Rotator cuff tear, right 1997 s/p repair SLAP tear of shoulder 2011 left - s/p surgery to place [address] elevation myocardial infarction (STEMI) of anterolateral wall ([facility]) 05/09/12 Past Surgical History: Procedure Laterality Date [...] file Gets together: Not on file Attends adventist service: Not on file Active member of [...] Units 0-5,000 Units Intravenous Continuous PRN Meron Ropre MD 5,000 Units at 01/18/19 0413 ipratropium-albuterol [...] similar to his pain prior to the NH will plan for a left heart cath [...] Interventional Cardiology Clinic Consult Heart & Vascular [facility] 10/15/2019 Anita Rowland MD [address] [place] [id number] Patient: Fernando Helton Date of : 1970 [...] current medical regiment. Coronary artery disease involving [place] coronary artery of [place] heart without angina pectoris Patient has a [...] therapy. COPD (chronic obstructive pulmonary disease) ([facility]) Assessment & Plan Patient reports he has discontinued tobacco abuse. Coronary artery disease involving [place] coronary artery of [place] heart without angina pectoris Assessment & Plan [...] Final Result by Interface, Lab Results In [place] [facility] (10/16/2019 0822) Echocardiogram complete w contrast [...] History: Diagnosis Date Acute respiratory failure ([facility]) 09/2014 requring mechanical ventilation Anxiety Bilateral lower extremity edema R > L CAD (coronary artery disease) CAD s/p [facility] with 1 stent in left main 07/2012, replaced 09/2014 Cardiac arrest with ventricular fibrillation ([facility]) 09/25/2014 CHF (congestive heart failure), NYHA class I, chronic, diastolic ([facility]) Chronic sinusitis Claudication of right lower extremity ([facility]) Cluster headache COPD (chronic obstructive pulmonary disease) ([facility]) 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 Bev Tolentino Metabolic syndrome Mood disorder ([facility]) Nasal fracture Obstructive sleep apnea noncompliant with CPAP Orthostatic dizziness with intermittent syncope Pericarditis 02/25/07; 09/23/17 Pneumomediastinum ([facility]) 01/12/2007 secondary to severe coughing spell & ruptured alveoli Rotator cuff tear, right 1997 s/p repair SLAP tear of shoulder 2011 left - s/p surgery to place [address] elevation myocardial infarction (STEMI) of anterolateral wall ([facility]) 05/09/2012 anterolateral STEMI involving left anterior descending coronary artery ([facility]) 09/25/2014 anterior Superficial thrombophlebitis of right upper [...] Heart Cath; Surgeon: Carlo Mercedes MD; Location: [facility]; Service: Cardiovascular IABP placement 05/09/[address] [...] . The patient's home setup is a hardware technician, family / caregiver support is a hardware technician for return to prior level of function. The patient's compliance is a hardware technician, awareness of own capacity and performance is a hardware technician to return to prior level of function. [...] double vision, but none during OT eval. [id number] WNL. ADL/IADL Feeding: Independent Grooming : Independent [...] dizziness.. Prior Level of Function Level of [place]: Independent with ADLs and functional transfers, Independent with homemaking with ambulation Lives With: Spouse Receives Help From: Family ADL Assistance: Independent Homemaking Assistance: Independent Vocational: On disability Comments: Drives. Independent in community. Past Medical History: Diagnosis Date Acute respiratory failure ([facility]) 09/2014 requring mechanical ventilation Anxiety Bilateral lower extremity edema R > L CAD (coronary artery disease) CAD s/p [facility] with 1 stent in left main 07/2012, replaced 09/2014 Cardiac arrest with ventricular fibrillation ([facility]) 09/25/2014 CHF (congestive heart failure), NYHA class I, chronic, diastolic ([facility]) Chronic sinusitis Claudication of right lower extremity ([facility]) Cluster headache COPD (chronic obstructive pulmonary disease) ([facility]) 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 Bev Tolentino Metabolic syndrome Mood disorder ([facility]) Nasal fracture Obstructive sleep apnea noncompliant with CPAP Orthostatic dizziness with intermittent syncope Pericarditis 02/25/07; 09/23/17 Pneumomediastinum ([facility]) 01/12/2007 secondary to severe coughing spell & ruptured alveoli Rotator cuff tear, right 1997 s/p repair SLAP tear of shoulder 2011 left - s/p surgery to place [address] elevation myocardial infarction (STEMI) of anterolateral wall ([facility]) 05/09/2012 anterolateral STEMI involving left anterior descending coronary artery ([facility]) 09/25/2014 anterior Superficial thrombophlebitis of right upper [...] Heart Cath; Surgeon: Carlo Mercedes MD; Location: [facility]; Service: Cardiovascular IABP placement 05/09/[address] [...] level Prior Level of Function Level of [place]: Independent with ADLs and functional transfers, Independent with homemaking with ambulation Lives With: Spouse Patient is at or near prior level of function at this time. Past Medical History: Diagnosis Date Acute respiratory failure ([facility]) 09/2014 requring mechanical ventilation Anxiety Bilateral lower extremity edema R > L CAD (coronary artery disease) CAD s/p [facility] with 1 stent in left main 07/2012, replaced 09/2014 Cardiac arrest with ventricular fibrillation ([facility]) 09/25/2014 CHF (congestive heart failure), NYHA class I, chronic, diastolic ([facility]) Chronic sinusitis Claudication of right lower extremity ([facility]) Cluster headache COPD (chronic obstructive pulmonary disease) ([facility]) 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 Bev Tolentino Metabolic syndrome Mood disorder ([facility]) Nasal fracture Obstructive sleep apnea noncompliant with CPAP Orthostatic dizziness with intermittent syncope Pericarditis 02/25/07; 09/23/17 Pneumomediastinum ([facility]) 01/12/2007 secondary to severe coughing spell & ruptured alveoli Rotator cuff tear, right 1997 s/p repair SLAP tear of shoulder 2011 left - s/p surgery to place [address] elevation myocardial infarction (STEMI) of anterolateral wall ([facility]) 05/09/2012 anterolateral STEMI involving left anterior descending coronary artery ([facility]) 09/25/2014 anterior Superficial thrombophlebitis of right upper extremity 12/26/2006 Past Surgical History: Procedure Laterality Date APPENDECTOMY 1998 BONE MARROW BIOPSY W/ ASPIRATION Left 11/27/2016 L posterior iliac crest; Dr. Bev Tolentino CABG OFF PUMP N/A 01/24/2019 Procedure: Coronary Artery Bypass graft x1 with Left Internal Mammary Artery graft, OFF PUMP; Surgeon: Neo Mcneil MD; Location: [facility]; Service: Cardiothoracic CARDIAC CATHETERIZATION 09/24/2014 Segment [...] Heart Cath; Surgeon: Carlo Mercedes MD; Location: [facility]; Service: Cardiovascular IABP placement 05/09/[address] [...] with the care plan documented by the MACHINE I ENGRAVER. Time statement: A total of 70 minutes were spent on this encounter either in the patient's room or on the patient's hospital unit and over half of that time was spent on [id number] counseling and/or coordination of care. TANNER PALMA MSc, . [email or web address] city hospital Staff Neurologist & Movement Disorder Specialist [facility] (Adj Asst: Professor, [facility] [employer] Dept of Neurology) [id number], [address] Fax: [phone] NEUROLOGY NOTE [facility] [place] [address] [place] [address] Fax: [phone] Service date: 09/23/2019 Admit date: 09/22/2019 Fernando [...] review with Dr. Palma. 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) Past Medical History: Diagnosis Date Acute respiratory failure ([facility]) 09/2014 requring mechanical ventilation Anxiety Bilateral lower extremity edema R > L CAD (coronary artery disease) CAD s/p [facility] with 1 stent in left main 07/2012, replaced 09/2014 Cardiac arrest with ventricular fibrillation ([facility]) 09/25/2014 CHF (congestive heart failure), NYHA class I, chronic, diastolic ([facility]) Chronic sinusitis Claudication of right lower extremity ([facility]) Cluster headache COPD (chronic obstructive pulmonary disease) ([facility]) 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 Bev Tolentino Metabolic syndrome Mood disorder ([facility]) Nasal fracture Obstructive sleep apnea noncompliant with CPAP Orthostatic dizziness with intermittent syncope Pericarditis 02/25/07; 09/23/17 Pneumomediastinum ([facility]) 01/12/2007 secondary to severe coughing spell & ruptured alveoli Rotator cuff tear, right 1998 s/p repair SLAP tear of shoulder 2011 left - s/p surgery to place [address] elevation myocardial infarction (STEMI) of anterolateral wall ([facility]) 05/09/2012 anterolateral STEMI involving left anterior descending coronary artery ([facility]) 09/25/2014 anterior Superficial thrombophlebitis of right upper [...] Heart Cath; Surgeon: Carlo Mercedes MD; Location: [facility]; Service: Cardiovascular IABP placement 05/09/[address] [...] Problem(s): COPD (chronic obstructive pulmonary disease) ([facility]) Patient reports he has discontinued tobacco abuse. Associated Problem(s): Coronary artery disease involving [place] coronary artery of [place] heart without angina pectoris Patient has a [...] Completed Call placed to Dr. Martines about [place] line possibly not giving correct information based [...] OF SURGEON: Dr. Neo Bose. MD Tarun Lunchroom Attendant: Kristin Walker PA-C ANESTHESIOLOGIST: Dr. Jef Martines TYPE OF ANESTHESIA: General PRE-OP DIAGNOSIS: Sclerotic heart disease of the [place] coronary arteries In-stent restenosis of the LAD. [...] y.o. year-old male who presented with acute NH in the anterior wall after in-stent restenosis [...] LAD via proximal and distal control. The Solmentum stabilization device was utilized to immobilize the [...] complexity, Kristin CHOUDHURY, was utilized as my hr administrative assistant.' I broke scrub and went [...] discussed and spouse was identified as contact officer. Use of Password was discussed [facility] visiting policies were discussed. Multidisciplinary warehouse team member rounds were reviewed and family members/caregivers were [...] have been negative, EKG showed old anterolateral NH with mild ST-T changes with d-dimer negative [...] L CAD (coronary artery disease) CAD s/p [facility] with 1 stent in left main 07/2012, replaced 09/2014 Cardiac arrest with ventricular fibrillation ([facility]) 09/25/2014 CHF (congestive heart failure), NYHA class I, chronic, diastolic ([facility]) Chronic sinusitis Claudication ([facility]) Claudication of right lower extremity ([facility]) Cluster headache COPD (chronic obstructive pulmonary disease) ([facility]) 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 Bev Tolentino Metabolic syndrome Mood disorder ([facility]) Nasal fracture Obstructive sleep apnea noncompliant with CPAP Orthostatic dizziness with intermittent syncope Pericarditis 02/25/07; 09/23/17 Pneumomediastinum ([facility]) 01/12/2007 secondary to severe coughing spell & ruptured alveoli Rotator cuff tear, right 1998 s/p repair SLAP tear of shoulder 2011 left - s/p surgery to place [address] elevation myocardial infarction (STEMI) of anterolateral wall ([facility]) 05/09/2012 anterolateral STEMI involving left anterior descending coronary artery ([facility]) 09/25/2014 anterior Superficial thrombophlebitis of right upper [...] Estimated Needs: 1800-2200cal Method for Estimating Needs: [id number] Total Protein Estimated Needs: 86gms Method for [...] CT surgery for SPARKS to LAD bypass labor representative nurse here for patient, advised to give Effient and ASA along with other cardiac meds this morning, advised to stop heparin at this time, off unit with medical lab assistant nurse Problem: Actual or potential alteration in [...] and nitro paste. Consulted with Denisse Caruso JUDGE to ensure ordering correct heparin order set. [...] initially evaluated by my colleague Dr. Suzanna Aleajndro for shortness of breath for which further work-up was done in the ED including cardiac marker, CT pulmonary artery did show a small pericardial effusion which was presents previously after the surgery. I communicated with cardiothoracic Physician Mail List Librarian Jacob and he recommends on discharging patient outpatient follow-up. In the ED patient is awake alert his vitals are stable pulse ox continues to be 97% room air he is afebrile blood pressure 131/78. Discharged with encouragement to call cardiothoracic surgery tomorrow and was to return to the ED for any worsening symptom and he expressed understanding. documented in this encounter Seen by [place] [facility] post discharge and reviewed AVS. [...] therapy. Associated Problem(s): Coronary artery disease involving [place] coronary artery of [place] heart without angina pectoris Patient has a [...] otherwise. documented in this encounter Seen by [place] [facility] post discharge and reviewed AVS. [...] Fernando Helton Admit Date: [id number] MR #: [id number] : 1970 The H&P has been reviewed and the patient has been examined. I concur with the findings of the H&P. There are no significant changes. It is appropriate to proceed with the planned procedure. Carlo Mercedes MD 01/20/2019 8:24 AM Reason for consult-chest pain COCOPAH-patient is a pleasant 48-year-old man with medical history significant for CAD status post PCI to LAD in 2012 for NH presentation-presented again in 2014 with in-stent restenosis-underwent [...] have been negative, EKG shows old anterolateral NH with mild ST-T changes, d-dimer is negative [...] leg COPD (chronic obstructive pulmonary disease) ([facility]) Fatigue GERD (gastroesophageal reflux disease) Headache HLD (hyperlipidemia) HTN (hypertension) Metabolic syndrome Mood disorder ([facility]) Obstructive sleep apnea Pneumomediastinum ([facility]) 01/2007 Rotator cuff tear, right 1997 s/p repair SLAP tear of shoulder 2011 left - s/p surgery to place [address] elevation myocardial infarction (STEMI) of anterolateral wall ([facility]) 05/09/12 Past Surgical History: Procedure Laterality Date [...] file Gets together: Not on file Attends adventist service: Not on file Active member of [...] similar to his pain prior to the NH will plan for a left heart cath on 01/20/2019 - Continue heparin as per ACS protocol with a target APTT of 60 to 80 seconds - Okay to use Nitropaste - Continue aspirin, Effient, statin - Continue Coreg, enalapril and Lasix Electronically Signed by: Carlo Mercedes M.D 01/18/19 8:19 AM [facility] Medicine Inpatient H&P 01/17/2019 Meron Roper MD [facility] Patient: Fernando Helton Date of : 1970 [...] 1998 CAD (coronary artery disease) CAD s/p [facility] with 1 stent in left main 07/2012, replaced 09/2014 Chest pain Circulation problem right leg COPD (chronic obstructive pulmonary disease) ([facility]) Fatigue GERD (gastroesophageal reflux disease) Headache HLD (hyperlipidemia) HTN (hypertension) Metabolic syndrome Mood disorder ([facility]) Obstructive sleep apnea Pneumomediastinum ([facility]) 01/2007 Rotator cuff tear, right 1997 s/p repair SLAP tear of shoulder 2011 left - s/p surgery to place [address] elevation myocardial infarction (STEMI) of anterolateral wall ([facility]) 05/09/12 Past Surgical History: Procedure Laterality Date [...] Reviewed 7:22 PM documented in this encounter [facility] Medicine Inpatient H&P 10/16/2019 Nallely Goodwin CNP [facility] Patient: Fernando Helton Date of : 1970 (49 y.o.) PCP: Moises Patel MD ASSESSMENT/PLAN: Fernando Helton 49 y.o. male with history of HTN, HLD, CAD sp 1v CABG, COPD, DM Type II, ISAC non compliant CPAP, cardiac arrest VFib in 2014, chronic diastolic heart failure, GERD. Active Problems: Near syncope Coronary artery disease involving [place] coronary artery of [place] heart without angina pectoris COPD (chronic obstructive pulmonary disease) ([facility]) PLAN: Admit to med surg cardiac monitoring [...] History: Diagnosis Date Acute respiratory failure ([facility]) 09/2014 requring mechanical ventilation Anxiety Bilateral lower extremity edema R > L CAD (coronary artery disease) CAD s/p [facility] with 1 stent in left main 07/2012, replaced 09/2014 Cardiac arrest with ventricular fibrillation (HCC) 09/25/2014 CHF (congestive heart failure), NYHA class I, chronic, diastolic (HCC) Chronic sinusitis Claudication of right lower extremity (HCC) Cluster headache COPD (chronic obstructive pulmonary disease) ([facility]) 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 Bev Tolentino Metabolic syndrome Mood disorder ([facility]) Nasal fracture Obstructive sleep apnea noncompliant with CPAP Orthostatic dizziness with intermittent syncope Pericarditis 02/25/07; 09/23/17 Pneumomediastinum ([facility]) 01/12/2007 secondary to severe coughing spell & ruptured alveoli Rotator cuff tear, right 1997 s/p repair SLAP tear of shoulder 2011 left - s/p surgery to place [address] elevation myocardial infarction (STEMI) of anterolateral wall ([facility]) 05/09/2012 anterolateral STEMI involving left anterior descending coronary artery ([facility]) 09/25/2014 anterior Superficial thrombophlebitis of right upper extremity 12/26/2006 Past Surgical History: Procedure Laterality Date APPENDECTOMY 1998 BONE MARROW BIOPSY W/ ASPIRATION Left 11/27/2016 L posterior iliac crest; Dr. Bev Tolentino CABG OFF PUMP N/A 01/24/2019 Procedure: Coronary Artery Bypass graft x1 with Left Internal Mammary Artery graft, OFF PUMP; Surgeon: Neo Mcneil MD; Location: [facility]; Service: Cardiothoracic CARDIAC CATHETERIZATION 09/24/2014 Segment [...] Heart Cath; Surgeon: Carlo Mercedes MD; Location: [facility]; Service: Cardiovascular IABP placement 05/09/[address] [...] ms QTC Calculation (Bezet) 461 ms P [place] 61 degrees R [place] -4 degrees T [place] 80 degrees Alcohol, Medical Collection Time: 10/15/19 [...] intracranial CTA. 3. No enhancing intracranial process. Emerging Threats/[email or web address] Workstation ID: [id number] Ct Head Or Brain [...] EDT Patient seen and managed independently by MACHINE I ENGRAVER. I did not participate in the care of this patient, but was available for immediate consultation if requested by the MACHINE I ENGRAVER. documented in this encounter [facility] Medicine Inpatient H&P 09/22/2019 Good Macias MD [facility] Patient: Fernando Helton Date of : 1970 (49 y.o.) PCP: Moises Patel MD Assessment Fernando Helton 49 y.o. male with history of hypertension dyslipidemia diabetes coronary artery disease status post CABG presenting with slurred speech altered mental status which has resolved at arrival to ED Principal Problem: TIA (transient ischemic attack) Active Problems: Essential hypertension Mixed hyperlipidemia Coronary artery disease involving [place] coronary artery of [place] heart without angina pectoris GERD (gastroesophageal reflux disease) PAD (peripheral artery disease) ([facility]) Plan: Admit for observation Continue on telemetry [...] History: Diagnosis Date Acute respiratory failure ([facility]) 09/2014 requring mechanical ventilation Anxiety Bilateral lower extremity edema R > L CAD (coronary artery disease) CAD s/p [facility] with 1 stent in left main 07/2012, replaced 09/2014 Cardiac arrest with ventricular fibrillation ([facility]) 09/25/2014 CHF (congestive heart failure), NYHA class I, chronic, diastolic ([facility]) Chronic sinusitis Claudication of right lower extremity ([facility]) Cluster headache COPD (chronic obstructive pulmonary disease) ([facility]) 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 Bev Tolentino Metabolic syndrome Mood disorder ([facility]) Nasal fracture Obstructive sleep apnea noncompliant with CPAP Orthostatic dizziness with intermittent syncope Pericarditis 02/25/07; 09/23/17 Pneumomediastinum (HCC) 01/12/2007 secondary to severe coughing spell & ruptured alveoli Rotator cuff tear, right 1997 s/p repair SLAP tear of shoulder 2011 left - s/p surgery to place [address] elevation myocardial infarction (STEMI) of anterolateral wall ([facility]) 05/09/2012 anterolateral STEMI involving left anterior descending coronary artery ([facility]) 09/25/2014 anterior Superficial thrombophlebitis of right upper [...] Heart Cath; Surgeon: Carlo Mercedes MD; Location: [facility]; Service: Cardiovascular IABP placement 05/09/[address] [...] stat portable chest x-ray. SWAN LINE REMOVAL [place]-Isaiah catheter was removed at this time with patient lying flat. A single lumen infusion catheter was then sterilely placed right IJ cordis. Patient tolerated this very well. There were no immediate complications. documented in this encounter Care Teams (unrecognized sec tion and content) Pedigree Tracer Relationship Specialty Start Date End Date Moises Patel MD [address] [place] [address] PCP - General Family Medicine 09/20/17 Maykel Weathers II, MD [address] [place] [address] Consulting Physician Internal Medicine 05/17/15 Maximiliano Chiang MD [address] [place] [address] Consulting Physician General Surgery 07/14/19 Rubi White, MACHINE I ENGRAVER [address] [place] [address] Nurse Practitioner Nurse Practitioner 07/14/19 Devendra Freitas III, DO [address] [place] [address] Consulting Physician Vascular Surgery 07/14/19 Pedigree Tracer Relationship Specialty Start Date End Date Moises Patel MD PCP - General Family Medicine 03/17/13 Pedigree Tracer Relationship Specialty Start Date End Date Moises Patel MD [address] [place] [address] PCP - General Family Medicine 09/20/17 Maykel Weathers II, MD [address] [place] [address] Consulting Physician Internal Medicine 05/17/15 Maximiliano Chiang MD [address] [place] [address] Consulting Physician General Surgery 07/14/19 Rubi White, MACHINE I ENGRAVER [address] [place] [address] Nurse Practitioner Nurse Practitioner 07/14/19 Devendra Freitas III, DO [address] [facility] [place] [place] [address] Consulting Physician Vascular Surgery 07/14/19 Pedigree Tracer Relationship Specialty Start Date End Date Moises Patel MD [address] [place] [address] PCP - General Family Medicine 09/20/17 Maykel Weathers II, MD [address] [place] [address] Consulting Physician Internal Medicine 05/17/15 Maximiliano Chiang MD [address] [place] [address] Consulting Physician General Surgery 07/14/19 Rubi White, MACHINE I ENGRAVER [address] [place] [address] Nurse Practitioner Nurse Practitioner 07/14/19 Devendra Freitas III, DO [address] [place] [address] Consulting Physician Vascular Surgery 07/14/19 Pedigree Tracer Relationship Specialty Start Date End Date Moises Patel MD PCP - General Family Medicine 03/17/13 Pedigree Tracer Relationship Specialty Start Date End Date Moises Patel MD [address] [place] [address] PCP - General Family Medicine 09/20/17 Maykel Weathers II, MD [address] [place] [address] Consulting Physician Internal Medicine 05/17/15 Maximiliano Chiang MD [address] [place] [address] Consulting Physician General Surgery 07/14/19 Rubi White, MACHINE I ENGRAVER [address] [place] [address] Nurse Practitioner Nurse Practitioner 07/14/19 Devendra Freitas III, DO [address] [place] [address] Consulting Physician Vascular Surgery 07/14/19 Pedigree Tracer Relationship Specialty Start Date End Date Moises Patel MD [address] [place] [address] PCP - General Family Medicine 09/20/17 Maykel Weathers II, MD [address] [place] [address] Consulting Physician Internal Medicine 05/17/15 Maximiliano Chiang MD [address] [place] [address] Consulting Physician General Surgery 07/14/19 Rubi White CNP [address] [place] [address] Nurse Practitioner Nurse Practitioner 07/14/19 Devendra Freitas III, DO [address] [place] [address] Consulting Physician Vascular Surgery 07/14/19 Pedigree Tracer Relationship Specialty Start Date End Date Moises Patel MD [address] [place] [address] PCP - General Family Medicine 09/20/17 Maykel Weathers II, MD [address] [place] [address] Consulting Physician Internal Medicine 05/17/15 Maximiliano Chiang MD [address] [place] [address] Consulting Physician General Surgery 07/14/19 Rubi White MACHINE I ENGRAVER [address] [place] [address] Nurse Practitioner Nurse Practitioner 07/14/19 Devendra Freitas III, DO [address] [place] [address] Consulting Physician Vascular Surgery 07/14/19 Pedigree Tracer Relationship Specialty Start Date End Date Moises Patel MD [address] [place] [address] PCP - General Family Medicine 09/20/17 Maykel Weathers II, MD [address] [place] [address] Consulting Physician Internal Medicine 05/17/15 Carlo Mercedes MD [address] [place] [address] Cardiology 07/14/19 07/12/20 Maximiliano Chiang MD [address] [facility] [address] [address] Consulting Physician General Surgery 07/14/19 Rubi White CNP [address] [place] [address] Nurse Practitioner Nurse Practitioner 07/14/19 Devendra Freitas III, DO [address] [place] [address] Consulting Physician Vascular Surgery 07/14/19 Pedigree Tracer Relationship Specialty Start Date End Date Moises Patel MD [address] [place] [address] PCP - General Family Medicine 09/20/17 Maykel Weathers II, MD [address] [place] [address] Consulting Physician Internal Medicine 05/17/15 Carlo Mercedes MD [address] [place] [address] Cardiology 07/14/19 07/12/20 Maximiliano Chiang MD [address] [place] [address] Consulting Physician General Surgery 07/14/19 Rubi White, MACHINE I ENGRAVER [address] [facility] [place] [address] Nurse Practitioner Nurse Practitioner 07/14/19 Devendra Freitas III, DO [address] [facility] [place] [address] Consulting Physician Vascular Surgery 07/14/19 Pedigree Tracer Relationship Specialty Start Date End Date Moises Patel MD [address] [place] [address] PCP - General Family Medicine 09/20/17 Maykel Weathers II, MD [address] [place] [address] Consulting Physician Internal Medicine 05/17/15 Carlo Mercedes MD [address] [place] [address] Cardiology 07/14/19 07/12/20 Maximiliano Chiang MD [address] [place] [address] Consulting Physician General Surgery 07/14/19 Rubi White, MACHINE I ENGRAVER [address] [facility] [place] [place] [address] Nurse Practitioner Nurse Practitioner 07/14/19 Devendra Freitas III, DO [address] [place] [address] Consulting Physician Vascular Surgery 07/14/19 Pedigree Tracer Relationship Specialty Start Date End Date Moises Patel MD [address] [place] [address] PCP - General Family Medicine 12/28/14 09/19/17 Moises Patel MD [address] [place] [address] PCP - General Family Medicine 09/20/17 Maykel Weathers II, MD [address] [place] [address] Consulting Physician Internal Medicine 05/17/15 Carlo Mercedes MD [address] [place] [address] Cardiology 07/14/19 07/12/20 Maximiliano Chiang MD [address] [address] Consulting Physician General Surgery 07/14/19 Rubi White CNP [address] [place] [address] Nurse Practitioner Nurse Practitioner 07/14/19 Devendra Freitas III, DO [address] [place] [address] Consulting Physician Vascular Surgery 07/14/19 Pedigree Tracer Relationship Specialty Start Date End Date Moises Patel MD [address] [place] [address] PCP - General Family Medicine 12/28/14 09/19/17 Moises Patel MD [address] [place] [address] PCP - General Family Medicine 09/20/17 Maykel Weathers II, MD [address] [place] [address] Consulting Physician Internal Medicine 05/17/15 Carlo Mercedes MD [address] [place] [address] Cardiology 07/14/19 07/12/20 Maximiliano Chiang MD [address] [place] [address] Consulting Physician General Surgery 07/14/19 Rubi White CNP [address] [place] [address] Nurse Practitioner Nurse Practitioner 07/14/19 Devendra Freitas III, DO [address] [facility] [place] [address] Consulting Physician Vascular Surgery 07/14/19 Pedigree Tracer Relationship Specialty Start Date End Date Moisse Patel MD [address] [place] [address] PCP - General Family Medicine 12/28/14 09/19/17 Moises Patel MD [address] [place] [address] PCP - General Family Medicine 09/20/17 Maykel Weathers II, MD [address] [place] [address] Consulting Physician Internal Medicine 05/17/15 Carlo Mercedes MD [address] [place] [address] Cardiology 07/14/19 07/12/20 Maximiliano Chiang MD [address] [place] [address] Consulting Physician General Surgery 07/14/19 Rubi White, JIM [address] [place] [address] Nurse Practitioner Nurse Practitioner 07/14/19 Devendra Freitas III, DO [address] [facility] [place] [address] Consulting Physician Vascular Surgery 07/14/19 Pedigree Tracer Relationship Specialty Start Date End Date Moises Patel MD [address] [place] [address] PCP - General Family Medicine 12/28/14 09/19/17 Moises Patel MD [address] [place] [address] PCP - General Family Medicine 09/20/17 Maykel Weathers II, MD [address] [place] [address] Consulting Physician Internal Medicine 05/17/15 Carlo Mercedes MD [address] [place] [address] Cardiology 07/14/19 07/12/20 Maximiliano Chiang MD [address] [place] [address] Consulting Physician General Surgery 07/14/19 Rubi White CNP [address] [place] [address] Nurse Practitioner Nurse Practitioner 07/14/19 Devendra Freitas III, DO [address] [place] [address] Consulting Physician Vascular Surgery 07/14/19 Pedigree Tracer Relationship Specialty Start Date End Date Moises Patel MD [address] [place] [address] PCP - General Family Medicine 09/20/17 Maykel Weathers II, MD [address] [place] [address] Consulting Physician Internal Medicine 05/17/15 Maximiliano Chiang MD [address] [place] [address] Consulting Physician General Surgery 07/14/19 Rubi White CNP [address] [facility] [place] [address] Nurse Practitioner Nurse Practitioner 07/14/19 Devendra Freitas III, DO [address] [facility] [place] [address] Consulting Physician Vascular Surgery 07/14/19 Team Status: [...] BE BASED ON THE PRIMARY CLINICAL RECORDS. [facility]. provides no warranty or guarantee of the accuracy or completeness of information in this document.
[2023-03-17 13:06] LABS: Basophils Absolute Auto 0.1 10^3/uL (0.0-0.1); Basophils Percent Auto 0.7 % (0.2-2.0); Eosinophils Absolute Auto 0.8 10^3/uL (0.0-0.7); Eosinophils Percent Auto 7.1 % (0.9-7.0); Hematocrit 44.9 % (42.0-54.0); Hemoglobin 14.9 g/dL (14.0-18.0); Immature Granulocytes Abs Auto 0.06 10^3/uL (0.00-0.03); Immature Granulocytes Pct Auto 0.5 % (0.0-0.5); Lymphocytes Absolute Auto 3.9 10^3/uL (1.2-3.8); Lymphocytes Percent Auto 33.5 % (20.5-60.0); Mean Corpuscular HGB Conc 33.2 g/dL (29.9-35.2); Mean Corpuscular Hemoglobin 28.1 pg (25.9-34.0); Mean Corpuscular Volume 84.7 fL (80.0-94.0); Mean Platelet Volume 10.5 fL (9.5-13.5); Monocytes Absolute Auto 0.9 10^3/uL (0.3-0.8); Neutrophils Absolute Auto 5.9 10^3/uL (1.4-6.5); Neutrophils Percent Auto 50.2 % (43.0-75.0); Platelet Count 296 10^3/uL (150-450); Red Cell Distribution Width 13.8 % (11.0-15.0); White Blood Count 11.7 10^3/uL (4.0-11.0)
[2023-03-17 13:15] LABS: Anion Gap 12.7; BUN Creatinine Ratio 14.2; Calcium 9.2 mg/dL (8.5-10.1); Carbon Dioxide 27.1 mmol/L (21.0-32.0); Chloride 101 mmol/L (98-107); Estimated GFR (African America >60 (>=60); Estimated GFR (Non-African Ame >60 (>=60); Glucose 170 mg/dL (74-106); Potassium 3.8 mmol/L (3.5-5.1); Sodium 137 mmol/L (136-145)
[2023-03-17 13:21] LABS: INR 0.96; Partial Thromboplastin Time 28.1 sec (22.3-36.2); Prothrombin Time 10.2 sec (9.0-11.6)
[2023-03-17 14:48] VITALS: BP 139/87; PULSE 89; RESP 16; O2SAT 96
--- NOTE | 2023-03-17 14:53 | CT_ITS ---
The [address] [address] Patient Name: BRYNN WRIGHT MRN: [id number] date: 1970 Sex: M Assigned Patient Location: ER Current Patient Location: ER Accession/Order Number: [id number] Exam Date: 03/17/2023 15:23 Report Date: 03/17/2023 16:00 At the request of: ODALYS BAIRD Procedure: CT angio chest EXAM: CT angio chest COMPARISON: 02/25/2019. CLINICAL INDICATION: Peripheral arterial disease distal arm TECHNIQUE: CT angiography of the pulmonary arteries following the administration of 100 mL Omnipaque 350 intravenous contrast. MIP (maximum intensity projection) images or 3D post processing was performed. Dose reduction techniques were achieved by using automated exposure control and/or adjustment of mA and/or kV according to patient size and/or use of iterative reconstruction technique. FINDINGS: LOWER NECK AND CHEST WALL: Unremarkable. MEDIASTINUM AND GYPSY: No mediastinal or hilar pathologic lymphadenopathy by CT size criteria. CARDIOVASCULAR: No evidence of pulmonary embolism. No thoracic aortic aneurysm or dissection. Status post prior CABG. Normal heart size. No pericardial effusion. LUNGS: The lungs are clear. AIRWAYS: The central airways are patent. PLEURA: No pleural effusion or pneumothorax is seen. UPPER ABDOMEN: No acute findings in the visualized upper abdomen. Incompletely characterized small focus of enhancement in the mid liver on series 4 image 78 may represent a perfusional abnormality. No suspicious hepatic lesions definitely seen. BONES: No suspicious or aggressive bone lesions are seen. No acute fractures are seen. Median sternotomy wires. CT/CT angio chest IMPRESSION: No evidence of pulmonary embolism. No evidence of acute cardiopulmonary abnormality. Status post prior CABG. Electronically authenticated by: KARLI HERRERA Date: 03/17/2023 16:00
== END 2023-03-17 16:23 | disposition home or self-care (01) ==
PROVIDERS: Emergency Provider Emergency Medicine
DX: I73.9 Peripheral vascular disease, unspecified (principal); Z95.1 Presence of aortocoronary bypass graft; I10 Essential (primary) hypertension; G47.00 Insomnia, unspecified; F41.9 Anxiety disorder, unspecified; G25.81 Restless legs syndrome; I25.10 Atherosclerotic heart disease of native coronary artery without angina pectoris; I25.2 Old myocardial infarction; Z96.611 Presence of right artificial shoulder joint; Z96.612 Presence of left artificial shoulder joint; Z90.49 Acquired absence of other specified parts of digestive tract; F17.200 Nicotine dependence, unspecified, uncomplicated
CPT/HCPCS: 36415; 71275; 80048; 85025; 85610; 85730; 96374; 96376; 99285; J2270; Q9967

== ENCOUNTER 2023-11-29 09:54 | Emergency (ER) | payer OTHER, SELFPAY ==
[2023-11-29 10:05] VITALS: BP 146/99; PULSE 100; TEMP 37; O2SAT 98; BMI 43.6
--- NOTE | 2023-11-29 10:22 | XR_ITS ---
The [address] [address] Patient Name: BRYNN WRIGHT MRN: [id number] date: 1970 Sex: M Assigned Patient Location: ED.MAIN Current Patient Location: ER Accession/Order Number: [id number] Exam Date: 11/29/2023 11:18 Report Date: 11/29/2023 11:37 At the request of: ATA ROUSE Procedure: XR hip LT 2V w/ pelvis PROCEDURE: XR hip LT 2V w/ pelvis COMPARISON: None. HISTORY: pain FINDINGS: BONES:No fracture, acute abnormality, or significant arthropathy. SOFT TISSUES:Negative. No visible soft tissue swelling. EFFUSION:None visible. OTHER: Negative. XR/XR hip LT 2V w/ pelvis IMPRESSION: No acute radiographic abnormality Electronically authenticated by: ALE COPELAND Date: 11/29/2023 11:37
[2023-11-29] MEDS: KETOROLAC TROMETHAMINE 30 MG/ML VIAL 15 MG IVP (10:30)
[2023-11-29] MEDS: ORPHENADRINE 60 MG/ 2 ML VIAL IV (10:30)
[2023-11-29] MEDS: METHYLPREDNISOLONE SOD SUCC PF 40 MG/ML VIAL IVP (10:31)
[2023-11-29] MEDS: MORPHINE SULFATE 2 MG/ML SYRINGE IV (11:06)
[2023-11-29 12:10] VITALS: BP 151/96; PULSE 76; O2SAT 96
[2023-11-29 13:02] VITALS: BP 149/88; PULSE 88; O2SAT 98
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
== END 2023-11-29 13:03 | disposition home or self-care (01) ==
PROVIDERS: Emergency Provider Emergency Medicine
DX: M25.552 Pain in left hip (principal); F17.200 Nicotine dependence, unspecified, uncomplicated
CPT/HCPCS: 73502; 96374; 96375; 99284; J1885; J2270; J2360; J2919

== ENCOUNTER 2023-12-24 08:59 | Emergency (ER) | payer SELFPAY ==
[2023-12-24] VITALS (11 sets, daily range): BP systolic 153–156; BP diastolic 73–75; PULSE 88–94; TEMP 36.8; O2SAT 93–98; BMI 43.6
--- NOTE | 2023-12-24 09:59 | US_ITS ---
[place] [address] Patient Name: BRYNN WRIGHT MRN: [id number] date: 1970 Sex: M Assigned Patient Location: ER Current Patient Location: ED.MAIN Accession/Order Number: [id number] Exam Date: 12/24/2023 10:55 Report Date: 12/24/2023 12:10 At the request of: CARMINA BAUTISTA Procedure: US venous doppler LE BI EXAM: US venous doppler LE BI HISTORY: swelling COMPARISON: None. TECHNIQUE: Grayscale, color and Doppler FINDINGS: Region: Bilateral legs Thrombus: None Flow: Normal Augmentation: Normal Compressibility: Normal US/US venous doppler LE BI IMPRESSION: No deep or superficial vein thrombus identified in the legs Electronically authenticated by: ALE COPELAND Date: 12/24/2023 12:10
--- NOTE | 2023-12-24 10:00 | XR_ITS ---
The [address] [address] Patient Name: BRYNN WRIGHT MRN: [id number] date: 1970 Sex: M Assigned Patient Location: ER Current Patient Location: ER Accession/Order Number: [id number] Exam Date: 12/24/2023 11:21 Report Date: 12/24/2023 12:01 At the request of: CARMINA BAUTISTA Procedure: XR chest 2V EXAMINATION: XR chest 2V HISTORY: sob COMPARISON: No relevant comparison available. TECHNIQUE: PA and lateral FINDINGS: LUNGS: No significant pulmonary parenchymal abnormalities. VASCULATURE: No increased pulmonary vasculature. PLEURA: No pneumothorax, effusion, or pleural thickening. CARDIAC: No cardiomegaly or cardiac silhouette abnormality. MEDIASTINUM: No visible mass or adenopathy. Median sternotomy wires BONES: No fracture or visible bone lesion. OTHER: Negative. XR/XR chest 2V IMPRESSION: No acute cardiopulmonary process Electronically authenticated by: ALE COPELAND Date: 12/24/2023 12:01
--- NOTE | 2023-12-24 10:00 | ECG_ITS ---
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
[2023-12-24 10:30] LABS: Alanine Aminotransferase 52 U/L (16-63); Albumin Level 3.1 g/dL (3.4-5.0); Alkaline Phosphatase 92 U/L (46-116); Anion Gap 17.4; Aspartate Amino Transferase 24 U/L (15-37); BUN Creatinine Ratio 20.3; Bilirubin Total 2.1 mg/dL (0.2-1.0); Calcium 9.2 mg/dL (8.5-10.1); Carbon Dioxide 22.2 mmol/L (21.0-32.0); Chloride 100 mmol/L (98-107); Estimated GFR (African America >60 (>=60 mL/min/1.73m^2); Estimated GFR (Non-African Ame 50 (>=60 mL/min/1.73m^2); Globulin 3.2 g/dL; Glucose 429 mg/dL (74-106); Potassium 4.6 mmol/L (3.5-5.1); Sodium 135 mmol/L (136-145); Total Protein 6.3 g/dL (6.4-8.2); Troponin I High Sensitivity 9.7 pg/mL (4.0-76.1)
[2023-12-24 11:05] LABS: Basophils Absolute Auto 0.1 10^3/uL (0.0-0.1); Basophils Percent Auto 0.4 % (0.2-2.0); Eosinophils Absolute Auto 0.5 10^3/uL (0.0-0.7); Eosinophils Percent Auto 3.5 % (0.9-7.0); Hematocrit 39.9 % (42.0-54.0); Hemoglobin 13.2 g/dL (14.0-18.0); Immature Granulocytes Pct Auto 0.7 % (0.0-0.5); Lymphocytes Percent Auto 21.7 % (20.5-60.0); Mean Corpuscular HGB Conc 33.1 g/dL (29.9-35.2); Mean Corpuscular Hemoglobin 28.1 pg (25.9-34.0); Mean Corpuscular Volume 85.1 fL (80.0-94.0); Mean Platelet Volume 11.6 fL (9.5-13.5); Monocytes Absolute Auto 1.5 10^3/uL (0.3-0.8); Monocytes Percent Auto 10.3 % (1.7-12.0); Neutrophils Absolute Auto 8.9 10^3/uL (1.4-6.5); Neutrophils Percent Auto 63.4 % (43.0-75.0); Platelet Count 228 10^3/uL (150-450); Red Blood Count 4.69 10^6/uL (4.70-6.10); Red Cell Distribution Width 13.9 % (11.0-15.0)
[2023-12-24 11:25] LABS: Bilirubin Urine NEGATIVE (NEGATIVE); Blood Urine NEGATIVE (NEGATIVE); Clarity Urine CLEAR (CLEAR); Color Urine LT. YELLOW (YELLOW); Glucose Urine UA >=1000 mg/dL (NEGATIVE); Ketones Urine NEGATIVE (NEGATIVE); Leukocyte Esterase Urine NEGATIVE (NEGATIVE); Nitrite Urine NEGATIVE (NEGATIVE); Protein Urine NEGATIVE (NEG/TRACE); Urine Microscopic Indicated NO; Urobilinogen Urine 0.2 EU/dL (0.2-1.0)
== END 2023-12-24 12:28 | disposition home or self-care (01) ==
PROVIDERS: Emergency Provider Emergency Medicine; PCP Family Medicine
DX: J06.9 Acute upper respiratory infection, unspecified (principal); E11.9 Type 2 diabetes mellitus without complications; R60.9 Edema, unspecified; R05.9 Cough, unspecified; R06.02 Shortness of breath; R09.89 Other specified symptoms and signs involving the circulatory and respiratory systems; F17.200 Nicotine dependence, unspecified, uncomplicated; E66.9 Obesity, unspecified; Z68.41 Body mass index [BMI] 40.0-44.9, adult
CPT/HCPCS: 36415; 71046; 80053; 81003; 83880; 84484; 85025; 93005; 93970; 99285

== ENCOUNTER 2024-02-04 23:32 | Emergency (ER) | payer SELFPAY ==
[2024-02-04 23:36] VITALS: BP 185/101; PULSE 84; TEMP 36.4; O2SAT 98; BMI 42.0
[2024-02-04 23:47] VITALS: BP 159/100
[2024-02-04 23:48] LABS: Glucometer 330 mg/dL (74-106)
--- OUTSIDE RECORDS SUMMARY | 2024-02-04 23:48 | XMS_ITS | CCD ---
Author Organization [facility] Care Team Providers Care Chief Librarian Circulation Department Name Role Phone Moises Patel Unavailable Unavaila Maykel Chauhan II Unavailable Unavailable Unavailable Unavailable Unavailable Maykel Weathers Unavailable Unavailable Moises Patel Unavailable [phone] Moises Patel Unavailable Unavailable Patricia Louis Admitting Unavailable Patricia Louis Attending Unavailable Alahmyuliana Alaa Admitting Unavailable Abran Alaa Attending Unavailable Shailesh Monzon Attending Unavailable Shailesh Monzon Admitting Unavailable Sofie Daigle Admitting Unavailable Sofie Daigle Attending Unavailable Unavailable Primary Care Provider Unavailabl e Moises Patel Primary Care Provider Un available Maykel Weathers II Unavailable Unavailable Maykel Weathers Unavailable Moises Patel Primary Care Provider [phone] Maykel Weathers Unavailable Hollie Mercedesp Unavailable Naren [place] Ray Unavailable Rubi White Chrissy Unavailable Devendra Freitas Unavailable Daren Carlo Unavailable Unavailable Андрей [place] Ray Unavailable Fauser, Vikyoka Chrissy Unavailable Devendra Freitas Unavailable Moises Patel Primary Care Provider [phone] MOISES PATEL Primary Care Unavaila ble SYSTEM, PROVIDER NOT IN Attending Unavaila MOISES Segundo Primary Care Unavaila ble MOISES PATEL Primary Care Unavaila ble Jasiel CASEY MD, James Arthur Unavailable Moises Patel MD Primary Care Provider Daren WARREN, Carlo Unavailable Unavailable Андрей WARREN, Maximiliano Ray Unavailable [phone] Fauser ADVICE CLERK, Nyoka Chrissy Unavailable [phone] Craske III, DO, W. Don Unavailable Jaisel CASEY MD, Maykel Burleson Unavailable Moises Patel MD Primary Care Provider Андрей WARREN, [place] Ray Unavailable Fauser ADVICE CLERK, Nyoka Chrissy Unavailable [phone] Craske III, DO, W. Don Unavailable Андрей WARREN, Maximiliano Ray Unavailable Fauser ADVICE CLERK, Nyoka Chrissy Unavailable [phone] Craske III, DO, W. Don Unavailable [phone] Moises Paetl MD Primary Care Provider Jasiel CASEY MD, Maykel Burleson Unavailable Moises Patel MD Primary Care Provider Андрей WARREN, Maximiliano Ray Unavailable Fauser ADVICE CLERK, Nyoka Chrissy Unavailable [phone] Craske III, DO, W. Don Unavailable [phone] MOISES PATEL Primary Care Unavaila NGUYEN Angel Attending Unavail able Moises Patel MD Primary Care Provider [phone] MOISES PATEL Attending Unavailable SELF, SELF Referring Unavailable MOISES PATEL Primary Care Unavailable Jasiel CASEY MD, James Arthur Unavailable Moises Patel MD Primary Care Provider Андрей WARREN, [place] Ray Unavailable [phone] Fauser ADVICE CLERK, Nyoka Chrissy Unavailable [phone] Craske III, DO, W. Don Unavailable [phone] Carlo Mercedes MD Unavailable Unavailable Moises Patel MD Primary Care Provider Moises Patel MD Primary Care Provider Carlo Mercedes MD Unavailable Unavailable DO Jasen Campbell Emergency Provider NON STAFF Primary Care Provider UnavailJasen Huynh Attending Unavailable Jasen Campbell Admitting Unavailable NON STAFF Primary Care Unavailable Fauser ADVICE CLERK, Rubi Chrissy Unavailable MOISES PATEL Primary Care Unavaila ble MOISES MONDRAGON Attending Unavailable STORMLILIA, MOISES AGUILERA Primary Care Unavaila ble EATON, ANITA DE LEON Attending Unavailab le STORMONT, MOISES AGUILERA Primary [facility] Unavaila ble EATON, ANITA DE LEON Attending Unavailab le EATON, ANITA DE LEON Referring Unavailab le STORMONT, MOISES AGUILERA Primary Care Unavaila ble EATON, ANITA DE LEON Attending Unavailab le EATON, ANITA DE LEON Referring Unavailab le STORMONT, MOISES AGUILERA Primary Care Unavaila ble EATON, ANITA DE LEON Attending Unavailab le EATON, ANITA DE LEON Referring Unavailab le EATON, ANITA DE LEON Attending Unavailab le EATON, ANITA DE LEON Referring Unavailab le STORMONT, MOISES AGUILERA Primary Care Unavaila ble EATON, ANITA DE LEON Attending Unavailab le STORMONT, MOISES AGUILERA Primary Care Unavaila ble EATON, ANITA DE LEON Referring Unavailab le GERIS, PAOLODY Admitting Unavailable MALAKOOTI, AYAKA Referring Unavailable AKUSVASILE HUNT Attending Unavail able STORMLILIA, MOISES AGUILERA Primary [facility] Unavaila ble STORMONT, MOISES AGUILERA Primary Care Unavaila ble EATON, ANITA DE LEON Attending Unavailab le EATON, ANITA DE LEON Referring Unavailab le STORMONT, MOISES AGUILERA Primary Care Unavaila ble MALAKOOTI, AYAKA Attending Unavailable Allergies Allergy Classification Reported Allergen(s) Allergy Type Date of Onset Reaction(s) Facility Isosorbide (13 sources) Isosorbide Drug Allergy 5 Other (See Comments) [facility] (20 sources) isosorbide mononitrate; Translations: [ISOSORBIDE MONONITRATE] Propensity to adverse reactions to drug 5 Other (See Comments) [facility] Work Phone: Medications Current Medications Medication Drug [...] (PERCOCET) 5-325 mg per tablet 1 tablet albuterol 90 mcg/actuation inhaler (14 sources) take 2 puff(s) by inhalation every six hours as needed for wheezing albuterol 90 mcg/actuation inhaler Inhale 2 puffs every 6 (six) hours as needed for wheezing or shortness of breath . 0 Active benzonatate 200 mg oral capsule (3 sources) Non-narcotic Antitussive Start: 07-07-19 21 End: 12-15-19 21 take 1 capsule by mouth three times daily as needed for cough benzonatate 200 MG capsule Indications: Chronic obstructive pulmonary disease with acute exacerbation , COPD with acute exacerbation Take 1 capsule by mouth 3 times daily as needed for Cough. 90 capsule 3 09/15/2020 Active blood-glucose meter kit (20 sources) Start: 01-29-20 19 blood-glucose meter kit Indications: Type 2 diabetes [...] sources) P2Y12 Platelet Inhibitor Start: 01-27-2019 End: 04-28-2024 take 1 tablet by mouth once daily clopidogreL (PLAVIX) 75 mg tablet Take 1 (one) tablet (75 mg total) by mouth daily . 90 tablet 3 05/04/2023 04/28/2024 Active codeine phosphate 2 mg/ml / guaiFENesin [...] mL 0 09/15/2020 Active Continuous Blood Gluc Director Of Audiology (FreeStyle Glenna [facility]) Device (1 source) Start: 12-27-2021 Continuous [...] insulin aspart, human 100 unt/ml pen injector (12 sources) Insulin Analog Start: 11-09-2021 inject 5 [IU] by subcutaneous injection three times daily before mealtime insulin aspart U-100 (NovoLOG Flexpen U-100 Insulin) 100 unit/mL (3 mL) InPn Inject 5 (five) Units under the skin 3 (three) times a day before meals . 15 mL 11/09/2021 Active Start: 11-09-2021 inject 15 [IU] by segura bcutaneous injection three times daily insulin aspart 100 UNIT/ML Solution Pen-injector injection Inject 15 Units under the skin 3 (three) times a day. 0 11/09/2021 Active 3 ml insulin glargine 100 unt/ml pen injector (12 sources) Insulin Analog Start: 11-09-2021 insulin glargi ne (Lantus Solostar U-100 Insulin) 100 unit/mL (3 mL) InPn Inject 18 (eighteen) Units under the skin nightly . 15 mL 11/09/2021 Active Start: 11-09-2021 insulin glargi ne (Lantus Solostar U-100 Insulin) 100 unit/mL (3 mL) InPn Inject 18 (eighteen) Units under the skin nightly . 15 mL 0 11/09/2021 Active levoFLOXacin 500 mg oral [...] daily . 7 tablet 0 09/27/2018 Active 24 hr metFORMIN hydrochloride 500 mg extended release oral tablet (18 sources) Biguanide Start: 11-30-2021 take 2 tablets by mouth once daily metFORMIN (GLUCOPHAGE-XR) 500 MG 24 hr tablet Take 2 (two) tablets (1,000 mg total) by mouth daily . 0 11/30/2021 Active Start: 10-30-2021 take 1 tablet by julia th once daily at breakfast metFORMIN (GLUCOPHAGE-XR) 750 MG 24 hr tablet Take 1 (one) tablet (750 mg total) by mouth daily with breakfast . 30 tablet 10/30/2021 Active morphine sulfate 15 mg oral tablet (2 sources) Opioid Agonist Start: 12-07-2022 take 7.5 mg by mouth every six hours Morphine Active 7.5 MG PO Q6H 4 3 December 07, 2022 Start: 01-17-2019 End: 01-17-2019 morphine injection 2 mg nitroglycerin 0.4 mg sublingual tablet (12 sources) Nitrate Vasodilator Start: 11-03-2023 End: 11-02-2024 nitroGLYCERIN (NITROSTAT) 0.[address] 1 (one) tablet (0.4 mg total) under the tongue every 5 (five) minutes as needed for chest pain , if no relief after 3 doses call 911 . 25 tablet 2 11/03/2023 11/02/2024 Active Start: 06-02-2020 End: 06-02-2020 nitroGLYCERIN (NITROSTAT) SL [...] Discontinued (Reorder (Suppress CancelRx Message to Pharmacy)) omeprazole 40 mg delayed release oral capsule (20 sources) Proton Pump Inhibitor Start: 01-07-2018 End: 11-09-2021 take 1 capsule by mouth once daily omeprazole (PRILOSEC) 40 MG capsule Take 1 (one) capsule (40 mg total) by mouth daily . 30 capsule 11/09/2021 phenazopyridine hydrochloride 200 mg delayed release oral [...] Tab by mouth every evening. Active predniSONE 20 mg oral tablet (20 sources) Start: 07-23-2022 take 2 tablets by mouth once daily predniSONE (DELTASONE) 20 MG tablet Take 2 (two) tablets (40 mg total) by mouth daily Start: 07/23/22. 4 tablet 0 07/23/2022 Active Start: 07-06-2020 End: 09-15-2020 predniSONE 10 MG tablet Winsome cations: Chronic obstructive pulmonary disease with acute exacerbation [...] tablet (20 sources) Nonergot Dopamine Agonist Start: 10-16-2019 End: 10-16-2019 take 2 mg by mouth once daily 2 mg, Oral, Nightly, First dose on [facility] 10/16/19 at 0200 Start: 09-22-2019 End: 09-23-2019 take 2 mg by mouth once daily 2 mg, Oral, Nightly, [facility] dose on 09/22/19 at 2100 Start: 08-26-2019 take 2 mg by mouth once daily Ropinirole Active 2 MG PO Daily December 07, 2022 12:00am Start: 02-02-2019 End: 02-04-2019 take 2 mg by mouth once daily 2 mg, Oral, Nightly, [facility] dose on 02/02/19 at 2100 Start: 01-17-2019 End: 01-24-2019 take 2 mg by mouth once daily 2 mg, Oral, Nightly, [facility] dose on Sun01/17/19 at 2100 End: 04-24-2016 take 1 tablet by mouth once daily rOPINIRole (REQUIP) 1 MG tablet Take 1 mg by mouth daily 0 04/24/2016 Discontinued (Dose adjustment) take 2 tablets by mo [facility] every month rOPINIRole 1 MG Tab take 2 mg by mouth.. Active traZODone hydrochloride 100 mg oral tablet (20 sources) Serotonin Reuptake Inhibitor Start: 12-27-2021 take 100 mg by mouth once daily at bedtime Trazodone Active 100 MG PO Daily at bedtime December 07, 2022 12:00am Start: 03-03-2021 End: 12-27-2021 take 1 tablet by mouth once daily in the evening traZODone 50 MG tablet Indications: Insomnia, unspecified type Take 1 tablet by mouth every evening at 6 PM. 30 tablet 11 03/03/2021 12/27/2021 Discontinued (Reorder) Start: 04-08-2020 [facility] 1 tablet [facility] once daily in the evening traZODone 50 MG tablet Indications: Insomnia, unspecified type Take 1 tablet by mouth every evening at 6 PM. 30 tablet 11 04/08/2020 Active Start: 09-22-2019 End: 09-23-2019 take 50 mg by mouth once daily as needed for sleep 50 mg, Oral, Nightly PRN, sleep, Starting 09/22/19 at 1208 Trelegy Ellipta 200-62.5-25 mcg DsDv (10 sources) Start: 09-08-2021 Trelegy Ellipt a 200-62.5-25 mcg DsDv 1 (one) Inhalation. by Oral Inhalation route daily . 0 09/08/2021 Active Start: 09-08-2021 Trelegy Ellipt a 200-62.5-25 mcg DsDv by Oral Inhalation route daily . 0 09/08/2021 Active Completed/Discontinued Medications Medication Drug Class(es) Dates Sig (Normalized) Sig (Original) acetaminophen 325 mg oral tablet (20 sources) Start: 11-01-2023 End: 11-03-2023 take 1 tablet by mouth every four hours as needed for pain and headache 650 mg, Oral, Every 4 hours PRN, mild pain, fever 100.4 F or greater, headaches, Starting on [facility] 11/01/23 at 1825 Start: 06-02-2020 End: 06-02-2020 take 1 tablet by mouth every four hours as needed 650 mg, Oral, Every 4 hours PRN, mild pain, fever 100.4 F or greater, headaches, Starting 06/02/20 at 1212 Start: 10-16-2019 End: 10-16-2019 take 1 tablet by mouth every four hours as needed 650 mg, Oral, Every 4 hours PRN, mild pain, fever 100.4 F or greater, headaches, Starting [facility] 10/16/19 at 0112 Start: 09-22-2019 End: 09-23-2019 take 1 tablet by mouth every four hours as needed 650 mg, Oral, Every 4 hours PRN, mild pain, fever 100.4 F or greater, headaches, Starting 09/22/19 at 1207 Start: 02-02-2019 End: 02-04-2019 take 1 tablet by mouth every six hours as needed 650 mg, Oral, Every 6 hours PRN, mild pain, Starting 02/02/19 at 1052 Start: 01-29-2019 End: 02-28-2019 [...] powder inhaler (1 source) Start: 12-31-2019 End: 09-15-2020 take 1 puff(s) by inhalation twice daily Aclidinium Limestone (Tudorza Pressair) 400 MCG/ACT Aerosol Powder, breath activated inhalation powder Indications: Chronic obstructive pulmonary disease with acute exacerbation , Chronic obstructive pulmonary disease, unspecified COPD type Inhale 1 puff 2 times daily. 1 Each 12/31/2019 09/15/2020 Discontinued [id number] 200 actuat albuterol 0.09 mg/actuat metered dose inhaler (20 sources) beta2-Adrenerg ic Agonist Start: 11-01-2023 End: 11-03-2023 take 2 puff(s) by inhalation every four hours as needed 2 puff, Inhalation, Every 4 hours PRN (RT), shortness of breath, Starting on [facility] 11/01/23 at 1826, SPACER REQUIRED FOR ADMINISTRATION Start: 12-07-2022 take 1 puff(s) by in halation every four hours Albuterol Sulfate (Ventolin Hfa) 90 mcg/actuation HFA aerosol inhaler Active 2 PUFF INHALATION Q4H December 07, 2022 12:00am Start: 06-20-2022 take 2 puff(s) by in halation every four hours as needed for cough albuterol 90 mcg/actuation inhaler Inhale 2 (two) puffs every 4 (four) hours as needed for shortness of breath or cough . 18 g 06/20/2022 Active Start: 01-21-2021 take 2 puff(s) by in [...] hours PRN, wheezing, shortness of breath, Starting Sun01/17/19 at 1627 SPACER REQUIRED FOR ADMINISTRATION Start: [...] / ipratropium bromide 0.167 mg/ml inhalation solution (14 sources) Anticholinergic, beta2-Adrenergic Agonist Start: 11-01-2023 End: 11-03-2023 take 3 mL by inhalation every six hours as needed for wheezing 3 mL, Inhalation, Every 6 hours PRN (RT), shortness of breath, wheezing, Starting on [facility] 11/01/23 at 1827 Start: 07-06-2020 take 3 mL by inhalat ion every four hours as needed for chronic [...] 0.5-2.5 mg/3 ml nebulizer solution 3 mL aluminum hydroxide 40 mg/ml / magnesium hydroxide 40 mg/ml / simethicone 4 mg/ml oral suspension (3 sources) Start: 11-01-2023 End: 11-03-2023 take 30 mL by mouth every four hours as needed Start: 06-02-2020 End: 06-02-2020 take 30 mL by mouth every four hours as needed 30 mL, Oral, Every 4 hours PRN, indigestion, Starting Sun06/02/20 at 1212 Start: 01-22-2019 End: 01-24-2019 aluminum-magnesium hydroxide-simethicone (MAALOX PLUS) 200-200-20 mg/5 mL [...] tablet (20 sources) Nonsteroidal Anti-inflammatory Drug Start: 11-02-2023 End: 11-03-2023 take 81 mg by mouth once daily 81 mg, Oral, Daily, First dose on Sun11/02/23 at 0900, DO NOT CRUSH OR CHEW. Start: 01-18-2019 End: 06-10-2020 take 81 mg by mouth once daily 81 mg, Oral, Daily, [facility]ir [facility] dose on Sun10/16/19 at 0900 DO NOT CRUSH OR CHEW. Start: 09-27-2018 End: 09-27-2018 aspirin chewable tablet 324 mg End: 09-15-2020 take 1 tablet by mouth once daily aspirin 81 MG PO TABS take 1 Tab by mouth daily. 0 09/15/2020 Discontinued atorvastatin 40 mg oral tablet (20 sources) HMG-CoA Reductase Inhibitor Start: 10-03-2019 End: 05-03-2024 take 40 mg by mouth once daily 40 mg, Oral, Daily, First dose on Sun11/01/23 at 2030 Start: 09-23-2019 End: 09-23-2019 atorvastatin (LIPITOR) table [...] take 20 mg by mouth.. 10/13/2015 Active azithromycin 250 mg oral tablet (20 sources) [...] 2 times daily (RT), First dose on 02/02/19 at 1100 SPACER REQUIRED FOR ADMINISTRATION Start: [...] DISKUS) 250-50 mcg/dose diskus inhaler Inhale 1 (one) puff 2 (two) times a day . 0 Active take 1 puff(s) by in halation twice [...] by mouth daily . 30 tablet 11 03/11/2019 11/09/2021 Discontinued (Stop Taking at Discharge) [...] (Duplicate order (Suppress CancelRx Message to Pharmacy)) 0.5 ml HYDROmorphone hydrochloride 1 mg/ml prefilled syringe (2 sources) Opioid Agonist Start: 11-02-2023 End: 11-03-2023 take 0.5 mg intravenously every four hours as needed 0.5 mg, Intravenous, Every 4 hours PRN, moderate to severe pain, Starting on Sun11/02/23 at 0203 Start: 01-24-2019 End: 01-24-2019 0.25 mg, Intravenous, [...] Units insulin lispro 100 unt/ml injectable solution (5 sources) Insulin Analog Start: 11-02-2023 End: 11-03-2023 0-30 Units, Subcutaneous, 3 times daily before meals, First dose on Sun11/02/23 at 0730, * Dose should be given EITHER: No sooner than 10-15 minutes BEFORE a meal ( Specific Prandial Doses or NO Prandial Dose - Corrective Scale ONLY ) - OR - Immediately AFTER meal completed ( Carb Counting Ratio ), Prandial Insulin Dosing Method: NO Prandial Dose - Corrective Scale ONLY, Corrective Insulin Regimen (select desired scale to cover BG result): USUAL Sensitivity Scale, Dose Reduction Threshold (at meals) for POC Blood Glucose less than or equal to: 80, For Downtime Calculator, use: Insulin SC MEALtime PREprandial Start: 09-22-2019 End: 09-23-2019 inject 1 dose [...] lispro (HumaLOG) inj ection 0-20 Units insulin lispro (AdmeLOG,HumaLOG) injection 0-15 Units (1 source) Start: 11-01-2023 End: 11-03-2023 insulin lispro (AdmeLOG,HumaLOG) injection 0-15 Units insulin regular in 0.9 % NaCl [...] by mouth at bedtime. 12/13/2015 10/26/2016 Discontinued losartan potassium 25 mg oral tablet (20 sources) Angiotensin 2 Receptor Jose Armando Start: 05-28-2020 End: 04-01-2024 take 25 mg by mouth once daily 25 mg, Oral, Daily, First dose on [facility] 11/01/23 at 2030 methylPREDNISolone 40 mg injection (2 sources) Corticosteroid Start: 09-27-2018 End: 09-27-2018 methylPREDNISolone sod suc(PF) (SOLU-medrol) 40 mg Start: 10-12-2016 End: 10-26-2016 methylPREDNISolone (MEDROL, KYLAH,) 4 mg tablet Take 4 mg by mouth Use as directed . 10/12/2016 10/26/2016 Discontinued 24 hr metoprolol succinate 25 mg extended release oral tablet (20 sources) beta-Adrenergic Jose Armando Start: 04-02-2023 End: 05-03-2024 take 25 mg by mouth once daily 25 mg, Oral, Daily, First dose on [facility] 11/01/23 at 2030, DO NOT CRUSH OR CHEW. Start: 02-14-2022 End: 05-04-2023 take 1.5 tablets by mouth twice daily metoprolol tartrate (LOPRESSOR) 50 MG tablet Take 1.5 tablets(75mg) by mouth twice daily. . 270 tablet 1 02/14/2022 05/04/2023 Discontinued Start: 07-15-2020 End: 02-14-2022 take 1 tablet [...] metoprolol tar trate (LOPRESSOR) tablet 12.5 mg montelukast 10 mg oral tablet (9 sources) [...] End: 02-04-2019 naloxone (NARCAN) injection 0.1 mg naloxone (NARCAN) injection 0.1 mg (1 source) Start: 11-02-2023 End: 11-03-2023 naloxone (NARCAN) injection 0.1 mg ondansetron 4 mg disintegrating oral tablet (5 sources) Serotonin-3 Receptor Antagonist Start: 09-22-2019 End: 09-23-2019 take 1 tablet by mouth every six hours as needed 4 mg, Oral, Every 6 hours PRN, nausea, vomiting, Starting 09/22/19 at 1330 Use oral route first, if tolerated. Fo rmulation requires tablet remain in sealed package until [...] mg ondansetron (ZOFRAN-ODT) disintegrating tablet 4 mg (3 sources) Start: 11-01-2023 End: 11-03-2023 take 1 tablet by mouth every six hours as needed for nausea and vomiting ondansetron (ZOFRAN-ODT) disintegrating tablet 4 mg Start: 06-02-2020 End: 06-02-2020 take 1 tablet by mouth every six hours as needed ondansetron (ZOFRAN-ODT) disintegrating tablet 4 mg Start: 10-16-2019 End: 10-16-2019 take 1 tablet by mouth every six hours as needed ondansetron (ZOFRAN-ODT) disintegrating tablet 4 mg pantoprazole 40 mg delayed release oral tablet (8 sources) Proton Pump Inhibitor Start: 11-01-2023 End: 11-03-2023 take 40 mg by mouth once daily 40 mg, Oral, Daily, First dose on [facility] 11/01/23 at 2030, DO NOT CRUSH OR CHEW. Start: 10-16-2019 End: 10-16-2019 take 40 mg by mouth once daily 40 mg, Oral, Daily, Fir [facility] dose on [facility] 10/16/19 at 0900 DO NOT CRUSH OR CHEW. Start: 09-22-2019 End: 09-23-2019 take 40 mg by mouth once daily 40 mg, Oral, Daily, Fir [facility] dose on 09/22/19 at 1330 DO NOT CRUSH OR CHEW. Start: 02-02-2019 End: 02-04-2019 take 40 mg by mouth once daily 40 mg, Oral, Daily, Fir [facility] dose on Sun02/02/19 at 1300 DO NOT CRUSH OR CHEW. [...] . 30 tablet 1 06/11/2020 08/06/2020 Discontinued sennosides, snf 8.6 mg oral tablet (1 source) Start: 11-01-2023 End: 11-03-2023 1000 ml sodium chloride 9 mg/ml injection (13 sources) Start: 11-02-2023 End: 11-03-2023 take 100 mL intravenously every hour 100 mL/hr, Intravenous, Continuous, Starting on Sun11/02/23 at 1115 Start: 06-02-2020 End: 06-02-2020 sodium chloride (PF) [...] care, not elsewhere classified, initial encounter] Episodic Coronary atherosclerosis and other heart disease (20 sources) Coronary arteriosclerosis; Translations: [Coronary arteriosclerosis in [place] artery] Onset: 9 Resolved: 0 03-25-2015 Chronic Diabetes mellitus with complications (3 sources) Type 2 diabetes mellitus with hyperglycemia; [...] Translations: [Essential hypertension] Onset: 8 12-14-2014 Chronic Nonspecific chest pain (20 sources) Chest pain; Translations: [Atypical chest pain] Onset: 4 Resolved: 0 12-14-2014 Episodic Other fractures (1 source) Fracture of rib; [...] without diarrhea] Onset: 6 05-07-2015 Chronic Other gastrointestinal disorders (2 sources) Irritable bowel syndrome without diarrhea; Translations: [Irritable bowel syndrome without diarrhea] Onset: 6 Chronic Other injuries and conditions due to [...] Onset: 1 07-06-2020 Chronic Residual codes; unclassified (2 sources) Obstructive sleep apnea (adult) (pediatric); Translations: [Obstructive sleep apnea (adult) (pediatric)] Onset: 0 Chronic Residual codes; unclassified (1 source) Insomnia; [...] Patient encounter status; Translations: [Medication management] Unclassified (1 source) Unspecified injury of head, [...] Episodic Inflammatory conditions of male genital organs (20 sources) Acute prostatitis; Translations: [Acute prostatitis] Onset: 10-30-2021 Episodic Other circulatory disease (4 sources) H/O: [...] disorders of lung] Onset: 07-06-2020 07-06-2020 Episodic Other lower respiratory disease (2 sources) Shortness of breath; Translations: [Shortness of breath] Onset: 05-30-2023 Episodic Peripheral and visceral atherosclerosis (20 sources) Peripheral vascular disease; Translations: [Peripheral vascular disease, unspecified] Onset: 01-21-2019 Resolved: 05-28-2020 01-21-2019 Chronic Residual codes; unclassified (3 sources) Tobacco user; Translations: [Tobacco use] Onset: 09-17-2015 04-26-2020 Episodic Residual codes; unclassified (1 source) History of clinical finding in subject; Translations: [H/O noncompliance with medical treatment, presenting hazards to health] Onset: 08-01-2023 08-01-2023 Episodic Spondylosis; intervertebral disc disorders; other back [...] Test Name Value Interpretation Reference Range Facility CBC Auto Differentialon 10-14 Basophils (Bld) [#/Vol] 0.07 10*3/uL [facility] Basophils/100 WBC (Bld) 0.7 % [facility] Eosinophils (Bld) [#/Vol] 0.65 10*3/uL High [facility] Eosinophils/100 WBC (Bld) 6.6 % [facility] Erythrocyte distribution width (RBC) [Entitic vol] 13.7 % 11.6 - 14.8 % [facility] Hematocrit (Bld) [Volume fraction] 48.1 % 41.0 - 53.0 % [facility] Hemoglobin (Bld) [Mass/Vol] 16.0 g/dL 13.5 - 17.5 g/dL [facility] Immature granulocytes (Bld) [#/Vol] 0.05 10*3/uL [facility] Immature granulocytes/100 WBC (Bld) 0.50 % [facility] Comment on above: The IG parameter is the percentage of metamyelocytes, myelocytes and promyelocytes. An immature granulocyte count (IG) of 1% or more suggests the possibility of infection, an IG count of 3% is very likely related to an infection. Interpretation and review of laboratory results Abnormal [facility] Lymphocytes (Bld) [#/Vol] 2.82 10*3/uL [facility] Lymphocytes/100 WBC (Bld) 28.8 % [facility] MCH (RBC) [Entitic mass] 27.8 pg 26.0 - 34.0 pg [facility] [facility] MCHC (RBC) [Mass/Vol] 33.3 g/dL 31.0 - 37.0 g/dL [facility] MCV (RBC) [Entitic vol] 83.5 fL 80.0 - 100.0 fL [facility] Monocytes (Bld) [#/Vol] 0.76 10*3/uL [facility] Monocytes/100 WBC (Bld) 7.8 % [facility] Neutrophils (Bld) [#/Vol] 5.44 10*3/uL [facility] Neutrophils/100 WBC (Bld) 55.6 % [facility] Nucleated RBC (Bld) [#/Vol] 0.00 10*3/uL [facility] Nucleated RBC/100 WBC (Bld) [Ratio] 0.0 % [facility] Platelet mean volume (Bld) [Entitic vol] 10.2 fL 9.4 - 12.4 fL [facility] Platelets (Bld) [#/Vol] 240 10*3/uL [facility] RBC (Bld) [#/Vol] 5.76 10*6/uL [facility] WBC (Bld) [#/Vol] 9.79 10*3/uL [facility] CBC WITH AUTO DIFFERENTIALon 11-03-2023 AUTO NRBC 0.0 % Normal [facility] Comment on above: Performed By: #### 4 6112 #### LAB [address] [address] Twin Marley M.D. [id number] AUTO NRBC ABS COUNT 0.00 K/mcL Normal 0.00-0.00 [facility] Comment on above: Performed By: #### 4 6154 #### LAB [address] [address] Twin Marley M.D. [id number] BASOPHILS ABSOLUTE COUNT 0.07 K/mcL Normal 0.00-0.30 [facility] Comment on above: Performed By: #### 4 6106 #### LAB [address] [address] Twin Marley M.D. [id number] Basophils/100 WBC (Bld) 0.7 % Normal [facility] Comment on above: Performed By: #### 4 3082 #### LAB [address] [address] Twin Marley M.D. [id number] Eosinophils (Bld) [#/Vol] 0.65 10*3/uL High 0.00-0.50 [facility] Comment on above: Performed By: #### 4 6126 #### LAB [address] [address] Twin Marley M.D. [id number] Eosinophils/100 WBC (Bld) 6.6 % Normal [facility] Comment on above: Performed By: #### 4 6126 #### LAB [address] [address] Twin Marley M.D. [id number] Erythrocyte distribution width (RBC) [Ratio] 13.7 % Normal 11.6-14.8 [facility] Comment on above: Performed By: #### 4 6126 #### LAB [address] [address] Twin Marley M.D. [id number] Hematocrit (Bld) [Volume fraction] 48.1 % Normal 41.0-53.0 [facility] Comment on above: Performed By: #### 4 6126 #### LAB [address] [address] Twin Marley M.D. [id number] Hemoglobin (Bld) [Mass/Vol] 16.0 g/dL Normal 13.5-17.5 [facility] Comment on above: Performed By: #### 4 6126 #### LAB [address] [address] Twin Marley M.D. [id number] IG ABSOLUTE 0.05 K/mcL Normal 0.00-0.30 [facility] Comment on above: Performed By: #### 4 6156 #### LAB [address] [address] Twin Marley M.D. [id number] IG PERCENT 0.50 % Normal [facility] Comment on above: Result Comment: The IG parameter is the percentage of metamyelocytes, myelocytes and promyelocytes. An immature granulocyte count (IG) of 1% or more suggests the possibility of infection, an IG count of 3% is very likely related to an infection. Performed By: #### 4 6111 #### LAB [address] [place] [address] Twin Marley M.D. [id number] Lymphocytes (Bld) [#/Vol] 2.82 10*3/uL Normal 0.90-4.00 [facility] Comment on above: Performed By: #### 4 6150 #### LAB [address] [address] Twin Marley M.D. [id number] Lymphocytes/100 WBC (Bld) 28.8 % Normal [facility] Comment on above: Performed By: #### 4 6149 #### LAB [address] [address] Twin Marley M.D. [id number] MCH (RBC) [Entitic mass] 27.8 pg Normal 26.0-34.0 [facility] Comment on above: Performed By: #### 4 6126 #### LAB [address] [address] Twin Marley M.D. [id number] MCV (RBC) [Entitic vol] 83.5 fL Normal 80.0-100.0 [facility] Comment on above: Performed By: #### 4 6126 #### LAB [address] [address] Twin Marley M.D. [id number] MEAN CORPUSCULAR HEMOGLOBIN CONC 33.3 g/dL Normal 31.0-37.0 [facility] Comment on above: Performed By: #### 4 6126 #### LAB [address] [address] Twin Marley M.D. [id number] Monocytes (Bld) [#/Vol] 0.76 10*3/uL Normal 0.30-0.90 [facility] Comment on above: Performed By: #### 4 6165 #### LAB [address] [address] Twin Marley M.D. [id number] Monocytes/100 WBC (Bld) 7.8 % Normal [facility] Comment on above: Performed By: #### 4 6174 #### LAB [address] [address] Twin Marley M.D. [id number] NEUTROPHILS ABSOLUTE COUNT 5.44 K/mcL Normal 1.70-7.00 [facility] Comment on above: Performed By: #### 4 6126 #### LAB [address] [address] Twin Marley M.D. [id number] Neutrophils/100 WBC (Bld) 55.6 % Normal [facility] Comment on above: Performed By: #### 4 6126 #### LAB [address] [address] Twin Marley M.D. [id number] Platelet mean volume (Bld) [Entitic vol] 10.2 fL Normal 9.4-12.4 [facility] Comment on above: Performed By: #### 4 6126 #### LAB [address] [address] Twin Marley M.D. [id number] Platelets (Bld) [#/Vol] 240 10*3/uL Normal 150-400 [facility] Comment on above: Performed By: #### 4 6126 #### MH LAB [address] [address] Twin Marley M.D. [id number] RBC (Bld) [#/Vol] 5.76 10*6/uL Normal 4.50-5.90 [facility] Comment on above: Performed By: #### 4 6126 #### LAB [address] [address] Twin Marley M.D. [id number] WBC (Bld) [#/Vol] 9.79 10*3/uL Normal 4.50-11.00 [facility] Comment on above: Performed By: #### 4 6126 #### LAB [address] [address] Twni Marley M.D. [id number] COMPREHENSIVE METABOLIC PANE Bony 11-03-2023 Albumin [Mass/Vol] 4.1 g/dL Normal 3.2-5.2 [facility] Comment on above: Order Comment: [facility] has implemented the eGFR calculation approach that does not have a coefficient for race that conforms to the NKF-ASN Task Force Recommendations. Performed By: #### 4 6126 #### LAB [address] [address] Twin Marley M.D. [id number] ALP [Catalytic activity/Vol] 83 U/L Normal 40-150 [facility] Comment on above: Order Comment: [facility] has implemented the eGFR calculation approach that does not have a coefficient for race that conforms to the NKF-ASN Task Force Recommendations. Performed By: #### 4 6126 #### LAB [address] [address] Twin Marley M.D. [id number] ALT [Catalytic activity/Vol] 89 U/L High 0-50 U/L [facility] Comment on above: Order Comment: [facility] has implemented the eGFR calculation approach that does not have a coefficient for race that conforms to the NKF-ASN Task Force Recommendations. Performed By: #### 4 6126 #### LAB [address] [address] Twin Marley M.D. [id number] Anion gap [Moles/Vol] 14 mmol/L Normal 10-20 [facility] Comment on above: Order Comment: [facility] has implemented the eGFR calculation approach that does not have a coefficient for race that conforms to the NKF-ASN Task Force Recommendations. Performed By: #### 4 6126 #### LAB [address] [address] Twin Marley M.D. [id number] AST [Catalytic activity/Vol] 51 U/L High 0-50 U/L [facility] Comment on above: Order Comment: [facility] has implemented the eGFR calculation approach that does not have a coefficient for race that conforms to the NKF-ASN Task Force Recommendations. Performed By: #### 4 6126 #### LAB [address] [address] Twin Marley M.D. [id number] Bilirubin [Mass/Vol] 1.2 mg/dL Normal 0.0-1.3 [facility] Comment on above: Order Comment: [facility] has implemented the eGFR calculation approach that does not have a coefficient for race that conforms to the NKF-ASN Task Force Recommendations. Performed By: #### 4 6126 #### LAB [address] [address] Twin Marley M.D. [id number] Calcium [Mass/Vol] 9.1 mg/dL Normal 8.4-10.2 [facility] Comment on above: Order Comment: [facility] has implemented the eGFR calculation approach that does not have a coefficient for race that conforms to the NKF-ASN Task Force Recommendations. Performed By: #### 4 6126 #### LAB [address] [address] Twin Marley M.D. [id number] Chloride [Moles/Vol] 102 mmol/L Normal 98-108 [facility] Comment on above: Order Comment: [facility] has implemented the eGFR calculation approach that does not have a coefficient for race that conforms to the NKF-ASN Task Force Recommendations. Performed By: #### 4 6126 #### LAB [address] [address] Twin Marley M.D. [id number] Creatinine [Mass/Vol] 0.88 mg/dL Normal 0.50-1.30 [facility] Comment on above: Order Comment: [facility] has implemented the eGFR calculation approach that does not have a coefficient for race that conforms to the NKF-ASN Task Force Recommendations. Performed By: #### 4 6126 #### LAB [address] [place], [place] [address] Twin Marley M.D. [id number] EGFR 103 mL/min/1.73 m2 Normal >=60 [facility] Comment on above: Order Comment: [facility] has implemented the eGFR calculation approach that does not have a coefficient for race that conforms to the NKF-ASN Task Force Recommendations. Result Comment: Nancy mated GFR was calculated using the 2020 CKD-EPI creatinine equation. Performed By: #### 4 6126 #### LAB [address] [address] Twin Marley M.D. [id number] Glucose [Mass/Vol] 192 mg/dL High 65-99 [facility] Comment on above: Order Comment: [facility] has implemented the eGFR calculation approach that does not have a coefficient for race that conforms to the NKF-ASN Task Force Recommendations. Performed By: #### 4 6126 #### LAB [address] [address] Twin Marley M.D. [id number] HCO3 (Bld) [Moles/Vol] 23 mmol/L Normal 21-32 [facility] Comment on above: Order Comment: [facility] has implemented the eGFR calculation approach that does not have a coefficient for race that conforms to the NKF-ASN Task Force Recommendations. Performed By: #### 4 6126 #### LAB [address] [address] Twin Marley M.D. [id number] Potassium [Moles/Vol] 4.4 mmol/L Normal 3.5-5.1 [facility] Comment on above: Order Comment: [facility] has implemented the eGFR calculation approach that does not have a coefficient for race that conforms to the NKF-ASN Task Force Recommendations. Performed By: #### 4 6126 #### MH LAB [address] [address] Twin Marley M.D. [id number] Protein [Mass/Vol] 6.3 g/dL Normal 6.0-8.0 [facility] Comment on above: Order Comment: [facility] has implemented the eGFR calculation approach that does not have a coefficient for race that conforms to the NKF-ASN Task Force Recommendations. Performed By: #### 4 6126 #### MH LAB [address] [address] Twin Marley M.D. [id number] Sodium [Moles/Vol] 135 mmol/L Normal 135-145 [facility] Comment on above: Order Comment: [facility] has implemented the eGFR calculation approach that does not have a coefficient for race that conforms to the NKF-ASN Task Force Recommendations. Performed By: #### 4 6126 #### LAB [address] [place], [place] [address] Twin Marley M.D. [id number] Urea nitrogen [Mass/Vol] 17 mg/dL Normal 8-25 [facility] Comment on above: Order Comment: [facility] has implemented the eGFR calculation approach that does not have a coefficient for race that conforms to the NKF-ASN Task Force Recommendations. Performed By: #### 4 6126 #### LAB [address] [place], [place] [address] Twin Marley M.D. [id number] Urea nitrogen/Creatinine [Mass ratio] 19.3 mg/mg Normal 10.0-20.0 [facility] Comment on above: Order Comment: [facility] has implemented the eGFR calculation approach that does not have a coefficient for race that conforms to the NKF-ASN Task Force Recommendations. Performed By: #### 4 6126 #### LAB [address] [place], [place] [address] Twin Marley M.D. [id number] Comprehensive metabolic 2000 panelon 11-03-2023 Albumin [Mass/Vol] 4.1 g/dL 3.2 - 5.2 g/dL [facility] ALP [Catalytic activity/Vol] 83 U/L 40 - 150 U/L [facility] ALT [Catalytic activity/Vol] 89 U/L High 0-50 U/L [facility] Anion gap [Moles/Vol] 14 mmol/L 10 - 2 0 mmol/L [facility] AST [Catalytic activity/Vol] 51 U/L High 0-50 U/L [facility] Bilirubin [Mass/Vol] 1.2 mg/dL 0.0 - 1 .3 mg/dL [facility] Calcium [Mass/Vol] 9.1 mg/dL 8.4 - 10. 2 mg/dL [facility] Chloride [Moles/Vol] 102 mmol/L 98 - 10 8 mmol/L [facility] Creatinine [Mass/Vol] 0.88 mg/dL 0.50 - 1.30 mg/dL [facility] GFR/1.73 sq M.predicted CKD-EPI (S/P/Bld) [Vol rate/Area] 103 - PINF [facility] Comment on above: Estimated GFR was ca lculated using the 2020 CKD-EPI creatinine equation. Glucose [Mass/Vol] 192 mg/dL High 65 - 99 mg/dL [facility] [place] [facility] HCO3 [Moles/Vol] 23 mmol/L 21 - 32 mmol/L [facility] Interpretation and review of laboratory results Abnormal [facility] Potassium [Moles/Vol] 4.4 mmol/L 3.5 - 5.1 mmol/L [facility] Protein [Mass/Vol] 6.3 g/dL 6.0 - 8.0 g/dL [facility] Sodium [Moles/Vol] 135 mmol/L 135 - 145 mmol/L [facility] Urea nitrogen [Mass/Vol] 17 mg/dL 8 - 25 mg/dL [facility] Urea nitrogen/Creatinine [Mass ratio] 19.3 mg/mg 10.0 - 20.0 [facility] has implemented the eGFR calculation approach that does not have a coefficient for race that conforms to the NKF-ASN Task Force Recommendations. [facility] Glucose (Bld) [Mass/Vol]on 0 11-03-2023 Glucose [Mass/Vol] 182 mg/dL High 65 - 99 mg/dL [facility] Interpretation and review of laboratory results Abnormal [facility] Glucose [Mass/Vol] 182 mg/dL High 65-99 [facility] Comment on above: Performed By: #### 4 6126 #### MH LAB [address] [place], [place] [address] Twin Marley M.D. [id number] XR CHEST PA/APon 11-03-2023 XR CHEST PA/AP EXAMINATION: XR CHEST PA/AP HISTORY: clicking noise in chest per pt Injury/Trauma or Illness?:Illness/Other How long have you had these symptoms (acute/chronic)?:Acute Reason for exam?:CHEST PAIN,clicking noise in chest per pt History of cancer?:u Surgeries, chemotherapy, or radiation?:yes COMPARISON: Chest radiograph 11/01/2023 TECHNIQUE: One view chest IMPRESSION: FINDINGS/ No focal consolidation, pneumothorax or sizable pleural effusion. Cardiac silhouette is within normal size. Postsurgical changes of the sternum and mediastinum. Visualized upper abdomen is unremarkable. No acute osseous abnormality. Workstation ID: [id number] Dictated by: DEANNA LARA on [place] Nov 04, 2023 10:23:40 AM EDT Transcribed by: DEANNA LARA on [place] Nov 04, 2023 10:23:40 AM EDT Finalized by: DEANNA LARA on [place] Nov 04, 2023 10:23:40 AM EDT [facility] Comment on above: Order Comment: Injur y/Trauma or Illness?:Illness/OtherHow long have you had these symptoms (acute/chronic)?:AcuteReason for exam?:CHEST PAIN,clicking noise in chest per ptHistory of cancer?:uSurgeries, chemotherapy, or radiation?:yescardiac cathType of Exam?:UnknownAdditional signs and symptoms?:. CBC Auto Differentialon 10-14 Basophils (Bld) [#/Vol] 0.08 10*3/uL [facility] Basophils/100 WBC (Bld) 0.7 % [facility] Eosinophils (Bld) [#/Vol] 0.74 10*3/uL High [facility] Eosinophils/100 WBC (Bld) 6.7 % [facility] Erythrocyte distribution width (RBC) [Entitic vol] 13.3 % 11.6 - 14.8 % [facility] Hematocrit (Bld) [Volume fraction] 46.1 % 41.0 - 53.0 % [facility] Hemoglobin (Bld) [Mass/Vol] 15.7 g/dL 13.5 - 17.5 g/dL [facility] Immature granulocytes (Bld) [#/Vol] 0.08 10*3/uL [facility] Immature granulocytes/100 WBC (Bld) 0.70 % [facility] Comment on above: The IG parameter is the percentage of metamyelocytes, myelocytes and promyelocytes. An immature granulocyte count (IG) of 1% or more suggests the possibility of infection, an IG count of 3% is very likely related to an infection. Interpretation and review of laboratory results Abnormal [facility] Lymphocytes (Bld) [#/Vol] 3.46 10*3/uL [facility] Lymphocytes/100 WBC (Bld) 31.5 % [facility] MCH (RBC) [Entitic mass] 28.4 pg 26.0 - 34.0 pg [facility] MCHC (RBC) [Mass/Vol] 34.1 g/dL 31.0 - 37.0 g/dL [facility] MCV (RBC) [Entitic vol] 83.4 fL 80.0 - 100.0 fL [facility] Monocytes (Bld) [#/Vol] 0.81 10*3/uL [facility] Monocytes/100 WBC (Bld) 7.4 % [facility] Neutrophils (Bld) [#/Vol] 5.80 10*3/uL [facility] Neutrophils/100 WBC (Bld) 53.0 % [facility] Nucleated RBC (Bld) [#/Vol] 0.00 10*3/uL [facility] Nucleated RBC/100 WBC (Bld) [Ratio] 0.0 % [facility] Platelet mean volume (Bld) [Entitic vol] 10.4 fL 9.4 - 12.4 fL [facility] Platelets (Bld) [#/Vol] 262 10*3/uL [facility] RBC (Bld) [#/Vol] 5.53 10*6/uL [facility] WBC (Bld) [#/Vol] 10.97 10*3/uL [facility] CBC WITH AUTO DIFFERENTIALon 11-02-2023 AUTO NRBC 0.0 % Normal [facility] Comment on above: Performed By: #### L [id number] #### LAB [address] [address] Twin Marley M.D. [id number] AUTO NRBC ABS COUNT 0.00 K/mcL Normal 0.00-0.00 [facility] Comment on above: Performed By: #### L [id number] #### MH LAB [address] [place], [place] [address] Twin Marley M.D. [id number] BASOPHILS ABSOLUTE COUNT 0.08 K/mcL Normal 0.00-0.30 [facility] Comment on above: Performed By: #### L [id number] #### LAB [address] [address] Twin Marley M.D. [id number] Basophils/100 WBC (Bld) 0.7 % Normal [facility] Comment on above: Performed By: #### L [id number] #### LAB [address] [address] Twin Marley M.D. [id number] Eosinophils (Bld) [#/Vol] 0.74 10*3/uL High 0.00-0.50 [facility] Comment on above: Performed By: #### L [id number] #### LAB [address] [address] Twin Marley M.D. [id number] Eosinophils/100 WBC (Bld) 6.7 % Normal [facility] Comment on above: Performed By: #### L [id number] #### LAB [address] [address] Twin Marley M.D. [id number] Erythrocyte distribution width (RBC) [Ratio] 13.3 % Normal 11.6-14.8 [facility] Comment on above: Performed By: #### L [id number] #### LAB [address] [address] Twin Marley M.D. [id number] Hematocrit (Bld) [Volume fraction] 46.1 % Normal 41.0-53.0 [facility] Comment on above: Performed By: #### L [id number] #### LAB [address] [address] Twin Marley M.D. [id number] Hemoglobin (Bld) [Mass/Vol] 15.7 g/dL Normal 13.5-17.5 [facility] Comment on above: Performed By: #### L [id number] #### LAB [address] [address] Twin Marley M.D. [id number] IG ABSOLUTE 0.08 K/mcL Normal 0.00-0.30 [facility] Comment on above: Performed By: #### L [id number] #### LAB [address] [place] [address] Twin Marley M.D. [id number] IG PERCENT 0.70 % Normal [facility] Comment on above: Result Comment: The IG parameter is the percentage of metamyelocytes, myelocytes and promyelocytes. An immature granulocyte count (IG) of 1% or more suggests the possibility of infection, an IG count of 3% is very likely related to an infection. Performed By: #### L [id number] #### LAB [address] [place] [address] Twin Marley M.D. [id number] Lymphocytes (Bld) [#/Vol] 3.46 10*3/uL Normal 0.90-4.00 [facility] Comment on above: Performed By: #### L [id number] #### LAB [address] [place] [address] Twni Marley M.D. [id number] Lymphocytes/100 WBC (Bld) 31.5 % Normal [facility] Comment on above: Performed By: #### L [id number] #### LAB [address] [place] [address] Twin Marley M.D. [id number] MCH (RBC) [Entitic mass] 28.4 pg Normal 26.0-34.0 [facility] Comment on above: Performed By: #### L [id number] #### LAB [address] [place] [address] Twin Marley M.D. [id number] MCV (RBC) [Entitic vol] 83.4 fL Normal 80.0-100.0 [facility] Comment on above: Performed By: #### L [id number] #### LAB [address] [place] [address] Twin Marley M.D. [id number] MEAN CORPUSCULAR HEMOGLOBIN CONC 34.1 g/dL Normal 31.0-37.0 [facility] Comment on above: Performed By: #### L [id number] #### LAB [address] [place] [address] Twin Marley M.D. [id number] Monocytes (Bld) [#/Vol] 0.81 10*3/uL Normal 0.30-0.90 [facility] Comment on above: Performed By: #### L [id number] #### MH LAB [address] [address] Twin Marley M.D. [id number] Monocytes/100 WBC (Bld) 7.4 % Normal [facility] Comment on above: Performed By: #### L [id number] #### LAB [address] [address] Twin Marley M.D. [id number] NEUTROPHILS ABSOLUTE COUNT 5.80 K/mcL Normal 1.70-7.00 [facility] Comment on above: Performed By: #### L [id number] #### LAB [address] [address] Twin Marley M.D. [id number] Neutrophils/100 WBC (Bld) 53.0 % Normal [facility] Comment on above: Performed By: #### L [id number] #### LAB [address] [address] Twin Marley M.D. [id number] Platelet mean volume (Bld) [Entitic vol] 10.4 fL Normal 9.4-12.4 [facility] Comment on above: Performed By: #### L [id number] #### LAB [address] [place] [address] Twin Marley M.D. [id number] Platelets (Bld) [#/Vol] 262 10*3/uL Normal 150-400 [facility] Comment on above: Performed By: #### L [id number] #### MH LAB [address] [address] Twin Marley M.D. [id number] RBC (Bld) [#/Vol] 5.53 10*6/uL Normal 4.50-5.90 [facility] Comment on above: Performed By: #### L [id number] #### LAB [address] [place] [address] Twin Marley M.D. [id number] WBC (Bld) [#/Vol] 10.97 10*3/uL Normal 4.50-11.00 [facility] Comment on above: Performed By: #### L [id number] #### LAB [address] [place], [place] [address] Twin Marley M.D. [id number] COMPREHENSIVE METABOLIC PANE Bony 11-02-2023 Albumin [Mass/Vol] 4.0 g/dL Normal 3.2-5.2 [facility] Comment on above: Order Comment: [facility] has implemented the eGFR calculation approach that does not have a coefficient for race that conforms to the NKF-ASN Task Force Recommendations. Performed By: #### 4 6126 #### LAB [address] [place], [place] [address] Twin Marley M.D. [id number] ALP [Catalytic activity/Vol] 91 U/L Normal 40-150 [facility] Comment on above: Order Comment: [facility] has implemented the eGFR calculation approach that does not have a coefficient for race that conforms to the NKF-ASN Task Force Recommendations. Performed By: #### 4 6126 #### LAB [address] [place], [place] [address] Twin Marley M.D. [id number] ALT [Catalytic activity/Vol] 74 U/L High 0-50 U/L [facility] Comment on above: Order Comment: [facility] has implemented the eGFR calculation approach that does not have a coefficient for race that conforms to the NKF-ASN Task Force Recommendations. Performed By: #### 4 6126 #### LAB [address] [place], [place] [address] Twin Marley M.D. [id number] Anion gap [Moles/Vol] 15 mmol/L Normal 10-20 [facility] Comment on above: Order Comment: [facility] has implemented the eGFR calculation approach that does not have a coefficient for race that conforms to the NKF-ASN Task Force Recommendations. Performed By: #### 4 [id number] #### LAB [address] [id number] Twin Marley M.D. [id number] AST [Catalytic activity/Vol] 37 U/L Normal 0-50 U/L [facility] Comment on above: Order Comment: [facility] has implemented the eGFR calculation approach that does not have a coefficient for race that conforms to the NKF-ASN Task Force Recommendations. Performed By: #### 4 [id number] #### LAB [address] [address] Twin Marley M.D. [id number] Bilirubin [Mass/Vol] 1.0 mg/dL Normal 0.0-1.3 [facility] Comment on above: Order Comment: [facility] has implemented the eGFR calculation approach that does not have a coefficient for race that conforms to the NKF-ASN Task Force Recommendations. Performed By: #### 4 [id number] #### LAB [address] [address] Twin Marley M.D. [id number] Calcium [Mass/Vol] 8.9 mg/dL Normal 8.4-10.2 [facility] Comment on above: Order Comment: [facility] has implemented the eGFR calculation approach that does not have a coefficient for race that conforms to the NKF-ASN Task Force Recommendations. Performed By: #### 4 [id number] #### LAB [address] [address] Twin Marley M.D. [id number] Chloride [Moles/Vol] 100 mmol/L Normal 98-108 [facility] Comment on above: Order Comment: [facility] has implemented the eGFR calculation approach that does not have a coefficient for race that conforms to the NKF-ASN Task Force Recommendations. Performed By: #### 4 6126 #### LAB [address] [address] Twni Marley M.D. [id number] Creatinine [Mass/Vol] 0.97 mg/dL Normal 0.50-1.30 [facility] Comment on above: Order Comment: [facility] has implemented the eGFR calculation approach that does not have a coefficient for race that conforms to the NKF-ASN Task Force Recommendations. Performed By: #### 4 6126 #### LAB [address] [address] Twin Marley M.D. [id number] EGFR 94 mL/min/1.73 m2 Normal >=60 [facility] Comment on above: Order Comment: [facility] has implemented the eGFR calculation approach that does not have a coefficient for race that conforms to the NKF-ASN Task Force Recommendations. Result Comment: Nancy mated GFR was calculated using the 2020 CKD-EPI creatinine equation. Performed By: #### 4 [id number] #### LAB [address] [address] Twin Marley M.D. [id number] Glucose [Mass/Vol] 231 mg/dL High 65-99 [facility] Comment on above: Order Comment: [facility] has implemented the eGFR calculation approach that does not have a coefficient for race that conforms to the NKF-ASN Task Force Recommendations. Performed By: #### 4 [id number] #### LAB [address] [address] Twin Marley M.D. [id number] HCO3 (Bld) [Moles/Vol] 23 mmol/L Normal 21-32 [facility] Comment on above: Order Comment: [facility] has implemented the eGFR calculation approach that does not have a coefficient for race that conforms to the NKF-ASN Task Force Recommendations. Performed By: #### 4 6126 #### LAB [address] [address] Twin Marley M.D. [id number] Potassium [Moles/Vol] 4.5 mmol/L Normal 3.5-5.1 [facility] Comment on above: Order Comment: [facility] has implemented the eGFR calculation approach that does not have a coefficient for race that conforms to the NKF-ASN Task Force Recommendations. Performed By: #### 4 6126 #### LAB [address] [address] Twin Marley M.D. [id number] Protein [Mass/Vol] 6.1 g/dL Normal 6.0-8.0 [facility] Comment on above: Order Comment: [facility] has implemented the eGFR calculation approach that does not have a coefficient for race that conforms to the NKF-ASN Task Force Recommendations. Performed By: #### 4 6126 #### LAB [address] [address] Twin Marley M.D. [id number] Sodium [Moles/Vol] 133 mmol/L Low 135-145 [facility] Comment on above: Order Comment: [facility] has implemented the eGFR calculation approach that does not have a coefficient for race that conforms to the NKF-ASN Task Force Recommendations. Performed By: #### 4 6126 #### LAB [address] [place], [place] [address] Twin Marley M.D. [id number] Urea nitrogen [Mass/Vol] 20 mg/dL Normal 8-25 [facility] Comment on above: Order Comment: [facility] has implemented the eGFR calculation approach that does not have a coefficient for race that conforms to the NKF-ASN Task Force Recommendations. Performed By: #### 4 6126 #### LAB [address] [address] Twin Marley M.D. [id number] Urea nitrogen/Creatinine [Mass ratio] 20.6 mg/mg High 10.0-20.0 [facility] Comment on above: Order Comment: [facility] has implemented the eGFR calculation approach that does not have a coefficient for race that conforms to the NKF-ASN Task Force Recommendations. Performed By: #### 4 [id number] #### LAB [address] [address] Twin Marley M.D. [id number] CONSULTon 11-02-2023 CONSULT General Cardiology Inpatient Consult Heart & Vascular [facility] 11/02/2023 Luiz Frank MD [facility] Patient: Fernando Helton Date of : 1970 (53 y.o.) Referring Provider: Refer to consult order in electronic medical record PCP: Moises Patel MD Assessment/Plan: 1. Accelerated symptoms with chest discomfort and shortness of breath for the last 3 weeks. 2. Previous single-vessel CABG, SPARKS to LAD. 3. Uncontrolled diabetes, hemoglobin A1c 10.0 4. Continued tobacco abuse with smoking, did quit for short time after bypass but then went right back. 5. Hypertension 6. Hyperlipidemia 7. Obesity 8. GERD on Protonix 9. COPD 10. 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 Mild systolic dysfunction, last echocardiogram showing LV ejection fraction 41% 12. Mild hyponatremia, probably from elevated sugar, no obvious CHF. 13. Abnormal nuclear medicine myocardial perfusion stress test 05/07/2023, with fixed defect and deana-infarction ischemia anterior apical and septum with left ventricular ejection fraction 38%. PLAN: 1. Since patient had nuclear stress test in April 2023 and it was abnormal with mostly fixed defect and deana-infarction ischemia, cardiac catheterization and bypass graft angiography and coronary angiogram with possible PCI is recommended. 2. Especially because he continues to smoke and has uncontrolled diabetes with hemoglobin A1c 10.0, I would think that he is more likely to progress with atherosclerotic disease. 3. Patient is agreeable for cardiac catheterization and coronary angiography as he has not felt good for the last [address] 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 He does have mild to moderate left ventricular systolic dysfunction. Will keep him n.p.o. and start normal saline at 100 cc/h and he will sign the consent for the procedure. The procedure potential risk and alternatives were fully discussed, all signs were with the test from prior experience. 4. Does have some coughing but no real infection or pneumonia on the chest x-ray, just the chronic smoker's cough with some worsening. Subjective Reason for Consultation: Chest discomfort, shortness of breath for last 3 weeks. History of Present Illness: Fernando Helton is a 53 y.o. male has been progressively short of breath for the last 3 weeks and had severe chest tightness across the chest associated with shortness of breath and some coughing. He has COPD from continued smoking but does not have to use any nebulizer. He had seen the massage coordinator in the office recently and was supposed to have outpatient stress test in the near future. Imaging: I independently reviewed the EKG and agree with the interpretation(s) with the following comments. EKG shows old inferior and anterior infarct with sinus rhythm some nonspecific T wave changes. Echocardiogram on 05/07/2023 had shown LV ejection fraction 41% with wall motion abnormality of the anterior wall apex and septum consistent with previous myocardial infarction. EKG 12-lead Final Result by Interface, Lab Results In [place] (11/01/2023 7159) Echocardiogram complete w contrast Final Result by Emma Atkinson MD (05/30/2023 1336) Echocardiogram limited with contrast Final Result by (01/27/2019 0822) Stress test only, exercise Final Result by Emma Atkinson MD (03/13/2019 1441) Cardiac Catheterization Final Result by Anita Rowland MD (06/02/2020 1127) Review of Systems: The following system(s) were reviewed and negative. Pertinent positive and negative findings are noted in the HPI. [x] Const [x] Eyes [x] ENT [x] Resp, some wheezing uses inhalers, has nebulizer but never used it. Trying to quit cigarettes [] CV [x] GI [x] [x] Neuro [x] Musc [x] Skin [x] Psych [x] Endo [x] Allergy [x] Heme/Lymph Past Medical History: Diagnosis Date Acute respiratory [...] stent thrombosis on chronic Effient Deviated septum Diabetes mellitus (HCC) GERD (gastroesophageal reflux disease) Hepatic hemangioma R lobe HLD (hyperlipidemia) HTN (hypertension) Internal hemorrhoids Leukocytosis 11/2016 chronic; evaluation by Dr. Bev Tolentino Metabolic syndrome Mood disorder (HCC) Nasal (more content not included)... Normal [facility] Cardiac Catheterizationon Impression: Single vessel severe [place] coronary artery disease Patent SPARKS to LAD with no significant disease Normal left heart filling pressures Recommendations: Continue medical therapy Follow-up with primary care physician Evaluate for non-cardiac etiologies Coronary Findings Diagnostic Dominance: Right Left Main: The vessel was visualized by angiography, is moderate in size and is angiographically normal. Left Anterior Descending: Prox LAD lesion is 100% stenosed. The lesion was previously treated using a stent of unknown type. Left Circumflex: The vessel was visualized by angiography and is moderate in size. The vessel exhibits minimal luminal irregularities. Right Coronary Artery: The vessel was visualized by angiography, is moderate in size and is angiographically normal. SPARKS Graft To Mid LAD: The graft was visualized by angiography and is moderate in size. The graft is angiographically normal. Intervention No interventions have been documented. Left Ventricle LV systolic pressure is normal. LV end diastolic pressure is normal. [place] CV [facility] Radiology Study observation (narrative) [facility] Cholesterol in LDL Direct as say [Mass/Vol]on 11-02-2023 Cholesterol in LDL [Mass/Vol] 75 mg/dL 10 - 130 mg/dL [facility] Comment on above: National Cholesterol Education Program Guidelines: LDL Cholesterol Optimal: <100 mg/dL Near Optimal/above Optimal: 100-129 mg/dL Borderline High: 130-159 mg/dL High: 160-189 mg/dL Very High: greater than or equal to 190 mg/dL Interpretation and review of laboratory results Normal [facility] Comprehensive metabolic 2000 panelon 11-02-2023 Albumin [Mass/Vol] 4.0 g/dL 3.2 - 5.2 g/dL [facility] ALP [Catalytic activity/Vol] 91 U/L 40 - 150 U/L [facility] ALT [Catalytic activity/Vol] 74 U/L High 0-50 U/L [facility] Anion gap [Moles/Vol] 15 mmol/L 10 - 2 0 mmol/L [facility] AST [Catalytic activity/Vol] 37 U/L 0-50 U/L [facility] Bilirubin [Mass/Vol] 1.0 mg/dL 0.0 - 1 .3 mg/dL [facility] Calcium [Mass/Vol] 8.9 mg/dL 8.4 - 10. 2 mg/dL [facility] Chloride [Moles/Vol] 100 mmol/L 98 - 10 8 mmol/L [facility] Creatinine [Mass/Vol] 0.97 mg/dL 0.50 - 1.30 mg/dL [facility] GFR/1.73 sq M.predicted CKD-EPI (S/P/Bld) [Vol rate/Area] 94 - PINF [facility] Comment on above: Estimated GFR was ca lculated using the 2020 CKD-EPI creatinine equation. Glucose [Mass/Vol] 231 mg/dL High 65 - 99 mg/dL [facility] [place] [facility] HCO3 [Moles/Vol] 23 mmol/L 21 - 32 mmol/L [facility] Interpretation and review of laboratory results Abnormal [facility] Potassium [Moles/Vol] 4.5 mmol/L 3.5 - 5.1 mmol/L [facility] Protein [Mass/Vol] 6.1 g/dL 6.0 - 8.0 g/dL [facility] Sodium [Moles/Vol] 133 mmol/L Low 135 - 145 mmol/L [facility] Urea nitrogen [Mass/Vol] 20 mg/dL 8 - 25 mg/dL [facility] Urea nitrogen/Creatinine [Mass ratio] 20.6 mg/mg High 10.0 - 20.0 [facility] Services has implemented the eGFR calculation approach that does not have a coefficient for race that conforms to the NKF-ASN Task Force Recommendations. [facility] Glucose (Bld) [Mass/Vol]on 0 11-02-2023 Glucose [Mass/Vol] 179 mg/dL High 65 - 99 mg/dL [facility] [place] [facility] Interpretation and review of laboratory results Abnormal [facility] Glucose [Mass/Vol] 126 mg/dL High 65 - 99 mg/dL [facility] [place] [facility] Interpretation and review of laboratory results Abnormal [facility] Glucose [Mass/Vol] 181 mg/dL High 65 - 99 mg/dL [facility] Interpretation and review of laboratory results Abnormal [facility] Glucose [Mass/Vol] 233 mg/dL High 65 - 99 mg/dL [facility] [place] [facility] Interpretation and review of laboratory results Abnormal [facility] LDL CHOLESTEROL, DIRECTon Cholesterol in LDL [Mass/Vol] 75 mg/dL Normal 10-130 [facility] Comment on above: Result Comment: [place] [employer] Cholesterol Education Program Guidelines: LDL Cholesterol Optimal: <100 mg/dL Near Optimal/above Optimal: 100-129 mg/dL Borderline High: 130-159 mg/dL High: 160-189 mg/dL Very High: greater than or equal to 190 mg/dL Performed By: #### 4 [id number] #### [address] [place], [place] [address] Twin Marley M.D. [id number] LEFT HEART CATH W/GRAFTSon 0 11-02-2023 LEFT HEART CATH W/GRAFTS This is a summary report. The complete report is available in the patient's medical record. If you cannot access the medical record, please contact the sending organization for a detailed fax or copy. Impression: Single vessel severe [place] coronary artery disease Patent SPARKS to LAD with no significant disease Normal left heart filling pressures Recommendations: Continue medical therapy Follow-up with primary care physician Evaluate for non-cardiac etiologies Coronary Findings Diagnostic Dominance: Right Left Main: The vessel was visualized by angiography, is moderate in size and is angiographically normal. Left Anterior Descending: Prox LAD lesion is 100% stenosed. The lesion was previously treated using a stent of unknown type. Left Circumflex: The vessel was visualized by angiography and is moderate in size. The vessel exhibits minimal luminal irregularities. Right Coronary Artery: The vessel was visualized by angiography, is moderate in size and is angiographically normal. SPARKS Graft To Mid LAD: The graft was visualized by angiography and is moderate in size. The graft is angiographically normal. Intervention No interventions have been documented. Left Ventricle LV systolic pressure is normal. LV end diastolic pressure is normal. Normal [facility] LEGIONELLA ANTIGEN, URINEon 11-02-2023 LEGIONELLA ANTIGEN, URINE LEGIONELLA ANTIGEN Negative for Legionella antigen COMMENT: Results may be affected if patient is on diuretics. INTERPRETATION OF RESULTS: Test detects Legionella pneumophilia serogroup 1 antigens in urine. Legionnaires disease cannot be ruled out since other serogroups and species may also cause disease. Normal [facility] Comment on above: Performed By: #### [id number] #### LAB [address] [place], [place] [address] Twin Marley M.D. [id number] LIPID PANELon 11-02-2023 Cholesterol [Mass/Vol] 156 mg/dL Normal 100-199 [facility] Comment on above: Performed By: #### 4 6087 #### [address] [place], [place] [address] Twin Marley M.D. [id number] Cholesterol in HDL [Mass/Vol] 31 mg/dL Low 40-59 [facility] Comment on above: Performed By: #### 4 6087 #### LAB [address] [address] Twin Marley M.D. [id number] Cholesterol.total/Teresa sterol in HDL [Mass ratio] 5.0 {ratio} Normal [facility] Comment on above: Result Comment: Male s Cholesterol/HDL Ratio: Average risk: 5.0 1/2 average risk: 3.4 2 x average risk: 9.6 Performed By: #### 4 [id number] #### LAB [address] [address] Twin Marley M.D. [id number] LDL CHOLESTEROL CALCULATED Normal [facility] Comment on above: Result Comment: Calc ulated LDL invalid, triglycerides >400 mg/dl Performed By: #### 4 [id number] #### LAB [address] [address] Twin Marley M.D. [id number] NON HDL CHOL 125 mg/dL [facility] Comment on above: Result Comment: [facility] [employer] Cholesterol Education Program Guidelines: NON HDL Cholesterol Desirable: <130 mg/dL Borderline High: 130-159 mg/dL High: 160-189 mg/dL Very High: > or = 190 mg/dL Performed By: #### 4 [id number] #### LAB [address] [address] Twin Marley M.D. [id number] Triglyceride [Mass/Vol] 402 mg/dL High 30-150 [facility] Comment on above: Performed By: #### 4 [id number] #### LAB [address] [address] Twin Marley M.D. [id number] Legionella Antigen, Urineon 11-02-2023 Interpretation and review of laboratory results Normal [facility] L. pneumophila Ag Ql (U) Negative Negative for Legionella antigen [facility] Comment on above: COMMENT: Results may be affected if patient is on diuretics. INTERPRETATION OF RESULTS: Test detects Legionella pneumophilia serogroup 1 antigens in urine. Legionnaires disease cannot be ruled out since other serogroups and species may also cause disease. [facility] Lipid 1996 panelon 4 Cholesterol [Mass/Vol] 156 mg/dL 100 - 199 mg/dL [facility] Cholesterol in HDL [Mass/Vol] 31 mg/dL Low 40 - 59 mg/dL [facility] Cholesterol in LDL [Mass/Vol] [facility] Comment on above: Calculated LDL inval id, triglycerides >400 mg/dl Cholesterol non HDL [Mass/Vol] 125 mg/dL [facility] Comment on above: National Cholesterol Education Program Guidelines: NON HDL Cholesterol Desirable: <130 mg/dL Borderline High: 130-159 mg/dL High: 160-189 mg/dL Very High: > or = 190 mg/dL Cholesterol.total/Teresa sterol in HDL [Mass ratio] 5.0 {ratio} ratio [facility] Comment on above: Males Cholesterol/HD L Ratio: Average risk: 5.0 1/2 average risk: 3.4 2 x average risk: 9.6 Interpretation and review of laboratory results Abnormal [facility] Triglyceride [Mass/Vol] 402 mg/dL High 30 - 150 mg/dL [facility] MAGNESIUM LEVELon 11-02-2023 Magnesium [Mass/Vol] 2.0 mg/dL Normal 1.6-2.4 [facility] Comment on above: Performed By: #### 4 6109 #### [facility] LAB [address] [address] Twin Marley M.D. [id number] Magnesiumon 11-02-2023 Magnesium [Mass/Vol] 2.0 mg/dL 1.6 - 2 .4 mg/dL [facility] No Panel Informationon 11-01 Interpretation and review of laboratory results Normal [facility] PHOSPHORUSon 11-02-2023 Phosphate [Mass/Vol] 2.8 mg/dL Normal 2.7-4.5 [facility] Comment on above: Performed By: #### 4 6135 #### [facility] LAB [address] [place], [place] [address] Twin Marley M.D. [id number] POC GLUCOSE - [facility] 024 Glucose [Mass/Vol] 179 mg/dL High 65-99 [facility] Comment on above: Performed By: #### 4 6108 #### [facility] LAB [address] [address] Twin Marley M.D. [id number] Glucose [Mass/Vol] 126 mg/dL High [address] [place] [address] Comment on above: Performed By: #### 4 6126 #### LAB [address] [address] Twin Marley M.D. [id number] Glucose [Mass/Vol] 181 mg/dL High [address] [place] [address] Comment on above: Performed By: #### 4 6126 #### LAB [address] [address] Twin Marley M.D. [id number] Glucose [Mass/Vol] 233 mg/dL High [address] [place] [address] Comment on above: Performed By: #### 4 6608 #### LAB [address] [address] Twin Marley M.D. [id number] Phosphoruson 11-02-2023 Phosphate [Mass/Vol] 2.8 mg/dL 2.7 - 4 .5 mg/dL [facility] RESPIRATORY PCR PANELon 10-14 RESPIRATORY PCR PANEL INFLUENZA A FILMAR RAY Not Detected INFLUENZA B FILM ARRAY Not Detected PARAINFLUENZA VIRUS 1 Not Detected PARAINFLUENZA VIRUS 2 Not Detected PARAINFLUENZA VIRUS 3 Not Detected PARAINFLUENZA VIRUS 4 Not Detected RESPIRATORY SYNCYTIAL VIRUS FILM ARRAY Not Detected HUMAN METAPNEUMOVIRUS Not Detected HUMAN RHINOVIRUS/ENTEROVIRUS Not Detected ADENOVIRUS FILM ARRAY Not Detected CORONAVIRUS 229E Not Detected CORONAVIRUS HKU1 Not Detected CORONAVIRUS NL63 Not Detected CORONAVIRUS OC43 Not Detected BORDETELLA PARAPERTUSSIS Not Detected BORDETELLA PERTUSSIS Not Detected MYCOPLASMA PNEUMONIAE Not Detected CHLAMYDIA PNEUMONIAE Not Detected SARS-COV-2 (BIOFIRE) Not Detected Normal Not Detected [facility] Comment on above: Performed By: #### [id number] #### LAB [address] [address] Twin Marley M.D. [id number] Respiratory pathogens DNA an d RNA panel MEGHANN+non-probe (Nph)Ordered By: Jaja Gates on 11-02-2023 Adenovirus DNA MEGHANN+non-probe Ql (Nph) Not detected Not Detected [facility] B. parapertussis [id number] DNA MEGHANN+non-probe Ql (Nph) Not detected Not Detected [facility] B. pertussis toxin promoter region MEGHANN+non-probe Ql (Nph) Not detected Not Detected [facility] C. pneumoniae DNA MEGHANN+non-probe Ql (Nph) Not detected Not Detected [facility] FLUAV RNA MEGHANN+non-probe Ql (Nph) Not detected Not Detected [facility] FLUBV RNA MEGHANN+non-probe Ql (Nph) Not detected Not Detected [facility] HCoV 229E RNA MEGHANN+non-probe Ql (Nph) Not detected Not Detected [facility] HCoV HKU1 RNA MEGHANN+non-probe Ql (Nph) Not detected Not Detected [facility] HCoV NL63 RNA MEGHANN+non-probe Ql (Nph) Not detected Not Detected [facility] HCoV OC43 RNA MEGHANN+non-probe Ql (Nph) Not detected Not Detected [facility] hMPV RNA MEGHANN+non-probe Ql (Nph) Not detected Not Detected [facility] Interpretation and review of laboratory results Normal [facility] M. pneumoniae DNA MEGHANN+non-probe Ql (Nph) Not detected Not Detected [facility] Parainfluenza virus 1 RNA MEGHANN+non-probe Ql (Nph) Not detected Not Detected [facility] Parainfluenza virus 2 RNA MEGHANN+non-probe Ql (Nph) Not detected Not Detected [facility] Parainfluenza virus 3 RNA MEGHANN+non-probe Ql (Nph) Not detected Not Detected [facility] Parainfluenza virus 4 RNA MEGHANN+non-probe Ql (Nph) Not detected Not Detected [facility] Rhinovirus+Enterovirus RNA MEGHANN+non-probe Ql (Nph) Not detected Not Detected [facility] RSV RNA MEGHANN+non-probe Ql (Nph) Not detected Not Detected [facility] SARS-CoV-2 (COVID-19) RNA MEGHANN+non-probe Ql (Nph) Not detected Not Detected [facility] [facility] S. pneumoniae Urine AntigenO rdered By: Precious Sung on 11-02-2023 Interpretation and review of laboratory results Normal [facility] S. pneumoniae Ag Ql (U) Negative Pres umptive Negative for Pneumococcal pneumoniae [facility] Comment on above: A negative result segura ggests no current or recent pneumococcal infection. A negative result does not rule out Streptococcus pneumoniae infection since the antigen present in the sample may be below the detection limit of the test. [facility] S.PNEUMONIAE URINE ANTIGENon 11-02-2023 S.PNEUMONIAE URINE ANTIGEN STREP PNEUMONIAE ANTIGEN, URINE Presumptive Negative for Pneumococcal pneumoniae A negative result suggests no current or recent pneumococcal infection. A negative result does not rule out Streptococcus pneumoniae infection since the antigen present in the sample may be below the detection limit of the test. Normal [facility] Comment on above: Performed By: #### 4 [id number] #### LAB [address] [address] Twin Marley M.D. [id number] URINALYSISon 11-02-2023 BACTERIA, URINE None Seen Normal None Seen [facility] Comment on above: Order Comment: Micro scopic examination is performed on all urinalysis samples and only positive findings are reported. The test for blood on the chemical analytic portion of urinalysis may also be positive due to hemoglobinuria and myoglobinuria and if red blood cells are present they are quantified by microscopic examination. Performed By: #### 4 [id number] #### LAB [address] [place] [address] Twin Marley M.D. [id number] BILIRUBIN, URINE Negative Normal Negative [facility] Comment on above: Order Comment: Micro scopic examination is performed on all urinalysis samples and only positive findings are reported. The test for blood on the chemical analytic portion of urinalysis may also be positive due to hemoglobinuria and myoglobinuria and if red blood cells are present they are quantified by microscopic examination. Performed By: #### 4 [id number] #### LAB [address] [address] Twin Marley M.D. [id number] BLOOD, URINE Negative Normal Negative [facility] Comment on above: Order Comment: Micro scopic examination is performed on all urinalysis samples and only positive findings are reported. The test for blood on the chemical analytic portion of urinalysis may also be positive due to hemoglobinuria and myoglobinuria and if red blood cells are present they are quantified by microscopic examination. Performed By: #### 4 [id number] #### LAB [address] [address] Twin Marley M.D. [id number] Clarity (U) Clear Normal Clear [facility] Comment on above: Order Comment: Micro scopic examination is performed on all urinalysis samples and only positive findings are reported. The test for blood on the chemical analytic portion of urinalysis may also be positive due to hemoglobinuria and myoglobinuria and if red blood cells are present they are quantified by microscopic examination. Performed By: #### 4 [id number] #### LAB [address] [place] [address] Twin Marley M.D. [id number] Color (U) Yellow Normal Colorless, Yellow [facility] Comment on above: Order Comment: Micro scopic examination is performed on all urinalysis samples and only positive findings are reported. The test for blood on the chemical analytic portion of urinalysis may also be positive due to hemoglobinuria and myoglobinuria and if red blood cells are present they are quantified by microscopic examination. Performed By: #### 4 [id number] #### LAB [address] [place] [address] Twin Marley M.D. [id number] Glucose Ql (U) 150 mg/dL Abnormal Negative [facility] Comment on above: Order Comment: Micro scopic examination is performed on all urinalysis samples and only positive findings are reported. The test for blood on the chemical analytic portion of urinalysis may also be positive due to hemoglobinuria and myoglobinuria and if red blood cells are present they are quantified by microscopic examination. Performed By: #### 4 [id number] #### LAB [address] [place] [address] Twin Marley M.D. [id number] Ketones Ql (U) Negative Normal Negative [facility] Comment on above: Order Comment: Micro scopic examination is performed on all urinalysis samples and only positive findings are reported. The test for blood on the chemical analytic portion of urinalysis may also be positive due to hemoglobinuria and myoglobinuria and if red blood cells are present they are quantified by microscopic examination. Performed By: #### 4 [id number] #### LAB [address] [address] Twin Marley M.D. [id number] Leukocyte esterase Test strip Ql (U) Negative Normal Negative [facility] Comment on above: Order Comment: Micro scopic examination is performed on all urinalysis samples and only positive findings are reported. The test for blood on the chemical analytic portion of urinalysis may also be positive due to hemoglobinuria and myoglobinuria and if red blood cells are present they are quantified by microscopic examination. Performed By: #### 4 [id number] #### LAB [address] [address] Twin Marley M.D. [id number] MUCUS, URINE Rare Normal None Seen, Rare [facility] Comment on above: Order Comment: Micro scopic examination is performed on all urinalysis samples and only positive findings are reported. The test for blood on the chemical analytic portion of urinalysis may also be positive due to hemoglobinuria and myoglobinuria and if red blood cells are present they are quantified by microscopic examination. Performed By: #### 4 [id number] #### LAB [address] [address] Twin Marley M.D. [id number] NITRITE, URINE Negative Normal Negative [facility] Comment on above: Order Comment: Micro scopic examination is performed on all urinalysis samples and only positive findings are reported. The test for blood on the chemical analytic portion of urinalysis may also be positive due to hemoglobinuria and myoglobinuria and if red blood cells are present they are quantified by microscopic examination. Performed By: #### 4 [id number] #### LAB [address] [address] Twin Marley M.D. [id number] pH (U) 6.5 [pH] Normal 5.0-7.0 [facility] Comment on above: Order Comment: Micro scopic examination is performed on all urinalysis samples and only positive findings are reported. The test for blood on the chemical analytic portion of urinalysis may also be positive due to hemoglobinuria and myoglobinuria and if red blood cells are present they are quantified by microscopic examination. Performed By: #### 4 [id number] #### LAB [address] [address] Twin Marley M.D. [id number] PROTEIN, URINE Negative Normal Negative [facility] Comment on above: Order Comment: Micro scopic examination is performed on all urinalysis samples and only positive findings are reported. The test for blood on the chemical analytic portion of urinalysis may also be positive due to hemoglobinuria and myoglobinuria and if red blood cells are present they are quantified by microscopic examination. Performed By: #### 4 [id number] #### LAB [address] [place] [address] Twin Marley M.D. [id number] RBC, URINE < Normal 0-3 [facility] Comment on above: Order Comment: Micro scopic examination is performed on all urinalysis samples and only positive findings are reported. The test for blood on the chemical analytic portion of urinalysis may also be positive due to hemoglobinuria and myoglobinuria and if red blood cells are present they are quantified by microscopic examination. Performed By: #### 4 [id number] #### LAB [address] [place] [address] Twin Marley M.D. [id number] Specific gravity (U) [Rel density] 1.020 Normal 1.005-1.025 [facility] Comment on above: Order Comment: Micro scopic examination is performed on all urinalysis samples and only positive findings are reported. The test for blood on the chemical analytic portion of urinalysis may also be positive due to hemoglobinuria and myoglobinuria and if red blood cells are present they are quantified by microscopic examination. Performed By: #### 4 [id number] #### LAB [address] [address] Twin Marley M.D. [id number] UROBILINOGEN, URINE <2.0 Normal <2.0 [facility] Comment on above: Order Comment: Micro scopic examination is performed on all urinalysis samples and only positive findings are reported. The test for blood on the chemical analytic portion of urinalysis may also be positive due to hemoglobinuria and myoglobinuria and if red blood cells are present they are quantified by microscopic examination. Performed By: #### 4 [id number] #### [facility] LAB [address] [place], [place] [address] Twin Marley M.D. [id number] WBC, URINE < Normal 0-5 [facility] Comment on above: Order Comment: Micro scopic examination is performed on all urinalysis samples and only positive findings are reported. The test for blood on the chemical analytic portion of urinalysis may also be positive due to hemoglobinuria and myoglobinuria and if red blood cells are present they are quantified by microscopic examination. Performed By: #### 4 [id number] #### LAB [address] [place], [place] [address] Twin Marley M.D. [id number] UrinalysisOrdered By: Travon Christie on 11-02-2023 Bacteria Auto Ql (U) None Seen None Se en /hpf [facility] Bilirubin Ql (U) Negative Negative [facility] th Clarity Refractometry automated (U) Clear Clear [facility] Color (U) Yellow Colorless, Yellow [facility] Glucose Auto test strip (U) [Mass/Vol] 150 mg/dL Abnormal Negative [facility] Hemoglobin Auto test strip Ql (U) Negative Negative [facility] Interpretation and review of laboratory results Abnormal [facility] Ketones (U) [Mass/Vol] Negative Negat bryan mg/dL [facility] Leukocyte esterase Auto test strip Ql (U) Negative Negative [facility] Mucus Auto (Urine sed) [#/Area] Rare None Seen, Rare /lpf [facility] Nitrite Auto test strip Ql (U) Negative Negative [facility] pH (U) 6.5 [pH] 5.0 - 7.0 [facility] Protein (U) [Mass/Vol] Negative Negat bryan mg/dL [facility] RBC Auto (Urine sed) [#/Area] [facility] Specific gravity (U) [Rel density] 1.020 1.005 - 1.025 [facility] Urobilinogen (U) [Mass/Vol] mg/dL NINF - 2.0 mg/dL [facility] WBC Auto (Urine sed) [#/Area] [facility] Microscopic examinat ion is performed on all urinalysis samples and only positive findings are reported. The test for blood on the chemical analytic portion of urinalysis may also be positive due to hemoglobinuria and myoglobinuria and if red blood cells are present they are quantified by microscopic examination. [facility] BASIC METABOLIC PANELon Anion gap [Moles/Vol] 17 mmol/L Normal 10-20 [facility] Comment on above: Order Comment: [facility] has implemented the eGFR calculation approach that does not have a coefficient for race that conforms to the NKF-ASN Task Force Recommendations. Performed By: #### 4 [id number] #### LAB [address] [place] [address] Twin Marley M.D. [id number] Calcium [Mass/Vol] 9.2 mg/dL Normal 8.4-10.2 [facility] Comment on above: Order Comment: [facility] has implemented the eGFR calculation approach that does not have a coefficient for race that conforms to the NKF-ASN Task Force Recommendations. Performed By: #### 4 [id number] #### [address] [address] Twin Marley M.D. [id number] Chloride [Moles/Vol] 98 mmol/L Normal 98-108 [facility] Comment on above: Order Comment: [facility] has implemented the eGFR calculation approach that does not have a coefficient for race that conforms to the NKF-ASN Task Force Recommendations. Performed By: #### 4 [id number] #### LAB [address] [place] [address] Twin Marley M.D. [id number] Creatinine [Mass/Vol] 0.99 mg/dL Normal 0.50-1.30 [facility] Comment on above: Order Comment: [facility] has implemented the eGFR calculation approach that does not have a coefficient for race that conforms to the NKF-ASN Task Force Recommendations. Performed By: #### 4 [id number] #### LAB [address] [place] [address] Twin Marley M.D. [id number] EGFR 92 mL/min/1.73 m2 Normal >=60 [facility] Comment on above: Order Comment: [facility] has implemented the eGFR calculation approach that does not have a coefficient for race that conforms to the NKF-ASN Task Force Recommendations. Result Comment: Nancy mated GFR was calculated using the 2020 CKD-EPI creatinine equation. Performed By: #### 4 [id number] #### [address] [address] Twin Marley M.D. [id number] Glucose [Mass/Vol] 271 mg/dL High 65-99 [facility] Comment on above: Order Comment: [facility] has implemented the eGFR calculation approach that does not have a coefficient for race that conforms to the NKF-ASN Task Force Recommendations. Performed By: #### 4 [id number] #### [address] [address] Twin Marley M.D. [id number] HCO3 (Bld) [Moles/Vol] 25 mmol/L Normal 21-32 [facility] Comment on above: Order Comment: [facility] has implemented the eGFR calculation approach that does not have a coefficient for race that conforms to the NKF-ASN Task Force Recommendations. Performed By: #### 4 [id number] #### [address] [address] Twin Marley M.D. [id number] Potassium [Moles/Vol] 3.9 mmol/L Normal 3.5-5.1 [facility] Comment on above: Order Comment: [facility] has implemented the eGFR calculation approach that does not have a coefficient for race that conforms to the NKF-ASN Task Force Recommendations. Performed By: #### 4 [id number] #### [address] [address] Twin Marley M.D. [id number] Sodium [Moles/Vol] 136 mmol/L Normal 135-145 [facility] Comment on above: Order Comment: [facility] has implemented the eGFR calculation approach that does not have a coefficient for race that conforms to the NKF-ASN Task Force Recommendations. Performed By: #### 4 6124 #### SH [address] [address] Twin Marley M.D. [id number] Urea nitrogen [Mass/Vol] 18 mg/dL Normal 8-25 [facility] Comment on above: Order Comment: [facility] has implemented the eGFR calculation approach that does not have a coefficient for race that conforms to the NKF-ASN Task Force Recommendations. Performed By: #### 4 6124 #### SH LAB [address] [place] [address] Twin Marley M.D. [id number] Urea nitrogen/Creatinine [Mass ratio] 18.2 mg/mg Normal 10.0-20.0 [facility] Comment on above: Order Comment: [facility] has implemented the eGFR calculation approach that does not have a coefficient for race that conforms to the NKF-ASN Task Force Recommendations. Performed By: #### 4 [id number] #### SH LAB [address] [place] [address] Twin Marley M.D. [id number] CBC Auto Differentialon 10-13 Basophils (Bld) [#/Vol] 0.08 10*3/uL [facility] Basophils/100 WBC (Bld) 0.6 % [facility]) [#/Vol] 0.68 10*3/uL High [facility] Eosinophils/100 WBC (Bld) 5.1 % [facility] Erythrocyte distribution width (RBC) [Entitic vol] 13.8 % 11.6 - 14.8 % [facility] Hematocrit (Bld) [Volume fraction] 45.4 % 41.0 - 53.0 % [facility] Hemoglobin (Bld) [Mass/Vol] 15.7 g/dL 13.5 - 17.5 g/dL [facility] Immature granulocytes (Bld) [#/Vol] 0.08 10*3/uL [facility] Immature granulocytes/100 WBC (Bld) 0.60 % [facility] Comment on above: The IG parameter is the percentage of metamyelocytes, myelocytes and promyelocytes. An immature granulocyte count (IG) of 1% or more suggests the possibility of infection, an IG count of 3% is very likely related to an infection. Interpretation and review of laboratory results Abnormal [facility] Lymphocytes (Bld) [#/Vol] 4.35 10*3/uL High [facility] Lymphocytes/100 WBC (Bld) 32.5 % [facility] MCH (RBC) [Entitic mass] 28.5 pg 26.0 - 34.0 pg [facility] MCHC (RBC) [Mass/Vol] 34.6 g/dL 31.0 - 37.0 g/dL [facility] MCV (RBC) [Entitic vol] 82.5 fL 80.0 - 100.0 fL [facility] Monocytes (Bld) [#/Vol] 0.81 10*3/uL [facility] Monocytes/100 WBC (Bld) 6.1 % [facility] Neutrophils (Bld) [#/Vol] 7.37 10*3/uL [facility] Neutrophils/100 WBC (Bld) 55.1 % [facility] Nucleated RBC (Bld) [#/Vol] 0.00 10*3/uL [facility] Nucleated RBC/100 WBC (Bld) [Ratio] 0.0 % [facility] Platelet mean volume (Bld) [Entitic vol] 10.4 fL 9.4 - 12.4 fL [facility] Platelets (Bld) [#/Vol] 282 10*3/uL [facility] RBC (Bld) [#/Vol] 5.50 10*6/uL [facility] WBC (Bld) [#/Vol] 13.37 10*3/uL [facility] CBC WITH AUTO DIFFERENTIALon 11-01-2023 AUTO NRBC 0.0 % Normal [facility] Comment on above: Performed By: #### 4 [id number] #### LAB [address] [address] Twin Marley M.D. [id number] AUTO NRBC ABS COUNT 0.00 K/mcL Normal 0.00-0.00 [facility] Comment on above: Performed By: #### 4 [id number] #### LAB [address] [address] Twin Marley M.D. [id number] BASOPHILS ABSOLUTE COUNT 0.08 K/mcL Normal 0.00-0.30 [facility] Comment on above: Performed By: #### 4 [id number] #### LAB [address] [address] Twin Marley M.D. [id number] Basophils/100 WBC (Bld) 0.6 % Normal [facility] Comment on above: Performed By: #### 4 [id number] #### LAB [address] [address] Twin Marley M.D. [id number] Eosinophils (Bld) [#/Vol] 0.68 10*3/uL High 0.00-0.50 [facility] Comment on above: Performed By: #### 4 [id number] #### LAB [address] [address] Twin Marley M.D. [id number] Eosinophils/100 WBC (Bld) 5.1 % Normal [facility] Comment on above: Performed By: #### 4 [id number] #### LAB [address] [address] Twin Marley M.D. [id number] Erythrocyte distribution width (RBC) [Ratio] 13.8 % Normal 11.6-14.8 [facility] Comment on above: Performed By: #### 4 [id number] #### LAB [address] [address] Twin Marley M.D. [id number] Hematocrit (Bld) [Volume fraction] 45.4 % Normal 41.0-53.0 [facility] Comment on above: Performed By: #### 4 [id number] #### LAB [address] [address] Twin Marley M.D. [id number] Hemoglobin (Bld) [Mass/Vol] 15.7 g/dL Normal 13.5-17.5 [facility] Comment on above: Performed By: #### 4 [id number] #### LAB [address] [address] Twin Marley M.D. [id number] IG ABSOLUTE 0.08 K/mcL Normal 0.00-0.30 [facility] Comment on above: Performed By: #### 4 [id number] #### LAB [address] [address] Twin Marley M.D. [id number] IG PERCENT 0.60 % Normal [facility] Comment on above: Result Comment: The IG parameter is the percentage of metamyelocytes, myelocytes and promyelocytes. An immature granulocyte count (IG) of 1% or more suggests the possibility of infection, an IG count of 3% is very likely related to an infection. Performed By: #### 4 [id number] #### LAB [address] [address] Twin Marley M.D. [id number] Lymphocytes (Bld) [#/Vol] 4.35 10*3/uL High 0.90-4.00 [facility] Comment on above: Performed By: #### 4 [id number] #### LAB [address] [address] Twin Marley M.D. [id number] Lymphocytes/100 WBC (Bld) 32.5 % Normal [facility] Comment on above: Performed By: #### 4 [id number] #### LAB [address] [address] Twin Marley M.D. [id number] MCH (RBC) [Entitic mass] 28.5 pg Normal 26.0-34.0 [facility] Comment on above: Performed By: #### 4 [id number] #### LAB [address] [address] Twin Marley M.D. [id number] MCV (RBC) [Entitic vol] 82.5 fL Normal 80.0-100.0 [facility] Comment on above: Performed By: #### 4 [id number] #### LAB [address] [place] [address] Twin Marley M.D. [id number] MEAN CORPUSCULAR HEMOGLOBIN CONC 34.6 g/dL Normal 31.0-37.0 [facility] Comment on above: Performed By: #### 4 [id number] #### LAB [address] [address] Twin Marley M.D. [id number] Monocytes (Bld) [#/Vol] 0.81 10*3/uL Normal 0.30-0.90 [facility] Comment on above: Performed By: #### 4 [id number] #### LAB [address] [address] Twin Marley M.D. [id number] Monocytes/100 WBC (Bld) 6.1 % Normal [facility] Comment on above: Performed By: #### 4 [id number] #### LAB [address] [address] Twin Marley M.D. [id number] NEUTROPHILS ABSOLUTE COUNT 7.37 K/mcL High 1.70-7.00 [facility] Comment on above: Performed By: #### 4 [id number] #### LAB [address] [address] Twin Marley M.D. [id number] Neutrophils/100 WBC (Bld) 55.1 % Normal [facility] Comment on above: Performed By: #### 4 [id number] #### LAB [address] [address] Twin Marley M.D. [id number] Platelet mean volume (Bld) [Entitic vol] 10.4 fL Normal 9.4-12.4 [facility] Comment on above: Performed By: #### 4 [id number] #### LAB [address] [address] Twin Marley M.D. [id number] Platelets (Bld) [#/Vol] 282 10*3/uL Normal 150-400 [facility] Comment on above: Performed By: #### 4 [id number] #### LAB [address] [address] Twin Marley M.D. [id number] RBC (Bld) [#/Vol] 5.50 10*6/uL Normal 4.50-5.90 [facility] Comment on above: Performed By: #### 4 [id number] #### LAB [address] [address] Twin Marley M.D. [id number] WBC (Bld) [#/Vol] 13.37 10*3/uL High 4.50-11.00 [facility] Comment on above: Performed By: #### 4 [id number] #### LAB [address] [address] Twin Marley M.D. [id number] BASOPHILS ABSOLUTE COUNT 0.05 K/mcL Normal 0.00-0.30 [facility] Comment on above: Performed By: #### L [id number] #### SH LAB [address] [place] [address] Twin Marley M.D. [id number] Basophils/100 WBC (Bld) 0.4 % Normal [facility] Comment on above: Performed By: #### L [id number] #### SH LAB [address] [place] [address] Twin Marley M.D. [id number] Eosinophils (Bld) [#/Vol] 0.56 10*3/uL High 0.00-0.50 [facility] Comment on above: Performed By: #### L [id number] #### SH LAB [address] [place] [address] Twin Marley M.D. [id number] Eosinophils/100 WBC (Bld) 4.0 % Normal [facility] Comment on above: Performed By: #### L [id number] #### SH LAB [address] [place] [address] Twin Marley M.D. [id number] Erythrocyte distribution width (RBC) [Ratio] 13.2 % Normal 11.6-14.8 [facility] Comment on above: Performed By: #### L [id number] #### SH LAB [address] [place] [address] Twin Marley M.D. [id number] Hematocrit (Bld) [Volume fraction] 46.5 % Normal 41.0-53.0 [facility] Comment on above: Performed By: #### L [id number] #### SH LAB [address] [place] [address] Twin Marley M.D. [id number] Hemoglobin (Bld) [Mass/Vol] 15.7 g/dL Normal 13.5-17.5 [facility] Comment on above: Performed By: #### L [id number] #### SH LAB [address] [place] [address] Twin Marley M.D. [id number] IG ABSOLUTE 0.08 K/mcL Normal 0.00-0.30 [facility] Comment on above: Performed By: #### L [id number] #### SH LAB [address] [place], [place] [id number] Twin Marley M.D. [id number] IG PERCENT 0.60 % Normal [facility] Comment on above: Result Comment: The IG parameter is the percentage of metamyelocytes, myelocytes and promyelocytes. An immature granulocyte count (IG) of 1% or more suggests the possibility of infection, an IG count of 3% is very likely related to an infection. Performed By: #### L [id number] #### [facility] [address] [place] [address] Twin Marley M.D. [id number] Lymphocytes (Bld) [#/Vol] 3.94 10*3/uL Normal 0.90-4.00 [facility] Comment on above: Performed By: #### L [id number] #### [facility] [address] [place] [address] Twin Marley M.D. [id number] Lymphocytes/100 WBC (Bld) 27.8 % Normal [facility] Comment on above: Performed By: #### L [id number] #### [facility] [address] [place], [place] [id number] Twin Marley M.D. [id number] MCH (RBC) [Entitic mass] 28.1 pg Normal 26.0-34.0 [facility] Comment on above: Performed By: #### L [id number] #### [facility] [address] [place], [place] [address] Twin Marley M.D. [id number] MCV (RBC) [Entitic vol] 83.3 fL Normal 80.0-100.0 [facility] Comment on above: Performed By: #### L [id number] #### [facility] [address] [place], [place] [address] Twin Marley M.D. [id number] MEAN CORPUSCULAR HEMOGLOBIN CONC 33.8 g/dL Normal 31.0-37.0 [facility] Comment on above: Performed By: #### L [id number] #### [facility] [address] [place] [address] Twni Marley M.D. [id number] Monocytes (Bld) [#/Vol] 0.83 10*3/uL Normal 0.30-0.90 [facility] Comment on above: Performed By: #### L [id number] #### [facility] [address] [place], [place] [address] Twin Marley M.D. [id number] Monocytes/100 WBC (Bld) 5.9 % Normal [facility] Comment on above: Performed By: #### L [id number] #### [facility] [address] [place] [address] Twin Marley M.D. [id number] NEUTROPHILS ABSOLUTE COUNT 8.71 K/mcL High 1.70-7.00 [facility] Comment on above: Performed By: #### L [id number] #### [facility] [address] [place] [address] Twin Marley M.D. [id number] Neutrophils/100 WBC (Bld) 61.3 % Normal [facility] Comment on above: Performed By: #### L [id number] #### [facility] [address] [place], [place] [address] Twin Marley M.D. [id number] Platelet mean volume (Bld) [Entitic vol] 10.2 fL Normal 9.4-12.4 [facility] Comment on above: Performed By: #### L [id number] #### [facility] [address] [place], [place] [address] Twin Marley M.D. [id number] Platelets (Bld) [#/Vol] 296 10*3/uL Normal 150-400 [facility] Comment on above: Performed By: #### L [id number] #### [facility] [address] [place], [place] [address] Twin Marley M.D. [id number] RBC (Bld) [#/Vol] 5.58 10*6/uL Normal 4.50-5.90 [facility] Comment on above: Performed By: #### L [id number] #### [facility] [address] [place], [place] [address] Twin Marley M.D. [id number] WBC (Bld) [#/Vol] 14.17 10*3/uL High 4.50-11.00 [facility] Comment on above: Performed By: #### L [id number] #### [facility] [address] [place], [place] [address] Twin Marley M.D. [id number] COMPREHENSIVE METABOLIC PANE [facility] 11-01-2023 Albumin [Mass/Vol] 4.0 g/dL Normal 3.2-5.2 [facility] Comment on above: Order Comment: [facility] has implemented the eGFR calculation approach that does not have a coefficient for race that conforms to the NKF-ASN Task Force Recommendations. Performed By: #### 4 [id number] #### [facility] [address] [address] Twin Marley M.D. [id number] ALP [Catalytic activity/Vol] 91 U/L Normal 40-150 [facility] Comment on above: Order Comment: [facility] has implemented the eGFR calculation approach that does not have a coefficient for race that conforms to the NKF-ASN Task Force Recommendations. Performed By: #### 4 [id number] #### LAB [address] [address] Twin Marley M.D. [id number] ALT [Catalytic activity/Vol] 86 U/L High 0-50 U/L [facility] Comment on above: Order Comment: [facility] has implemented the eGFR calculation approach that does not have a coefficient for race that conforms to the NKF-ASN Task Force Recommendations. Result Comment: Spec imen Lipemic Specimen ultrafuged Performed By: #### 4 [id number] #### [facility] [address] [address] Twin Marley M.D. [id number] Anion gap [Moles/Vol] 16 mmol/L Normal 10-20 [facility] Comment on above: Order Comment: [facility] has implemented the eGFR calculation approach that does not have a coefficient for race that conforms to the NKF-ASN Task Force Recommendations. Performed By: #### 4 [id number] #### LAB [address] [id number] Twin Marley M.D. [id number] AST [Catalytic activity/Vol] 53 U/L High 0-50 U/L [facility] Comment on above: Order Comment: [facility] has implemented the eGFR calculation approach that does not have a coefficient for race that conforms to the NKF-ASN Task Force Recommendations. Result Comment: Slig htly Hemolyzed Specimen Lipemic Specimen ultrafuged Performed By: #### 4 [id number] #### LAB [address] [address] Twin Marley M.D. [id number] Bilirubin [Mass/Vol] 0.6 mg/dL Normal 0.0-1.3 [facility] Comment on above: Order Comment: [facility] has implemented the eGFR calculation approach that does not have a coefficient for race that conforms to the NKF-ASN Task Force Recommendations. Performed By: #### 4 [id number] #### LAB [address] [address] Twin Marley M.D. [id number] Calcium [Mass/Vol] 8.7 mg/dL Normal 8.4-10.2 [facility] Comment on above: Order Comment: [facility] has implemented the eGFR calculation approach that does not have a coefficient for race that conforms to the NKF-ASN Task Force Recommendations. Performed By: #### 4 [id number] #### LAB [address] [address] Twin Marley M.D. [id number] Chloride [Moles/Vol] 99 mmol/L Normal 98-108 [facility] Comment on above: Order Comment: [facility] has implemented the eGFR calculation approach that does not have a coefficient for race that conforms to the NKF-ASN Task Force Recommendations. Performed By: #### 4 [id number] #### LAB [address] [address] Twin Marley M.D. [id number] Creatinine [Mass/Vol] 0.88 mg/dL Normal 0.50-1.30 [facility] Comment on above: Order Comment: [facility] has implemented the eGFR calculation approach that does not have a coefficient for race that conforms to the NKF-ASN Task Force Recommendations. Performed By: #### 4 [id number] #### LAB [address] [address] Twin Marley M.D. [id number] EGFR 103 mL/min/1.73 m2 Normal >=60 [facility] Comment on above: Order Comment: [facility] has implemented the eGFR calculation approach that does not have a coefficient for race that conforms to the NKF-ASN Task Force Recommendations. Result Comment: Nancy mated GFR was calculated using the 2020 CKD-EPI creatinine equation. Performed By: #### 4 [id number] #### LAB [address] [address] Twin Marley M.D. [id number] Glucose [Mass/Vol] 192 mg/dL High 65-99 [facility] Comment on above: Order Comment: [facility] has implemented the eGFR calculation approach that does not have a coefficient for race that conforms to the NKF-ASN Task Force Recommendations. Performed By: #### 4 [id number] #### LAB [address] [address] Twin Marley M.D. [id number] HCO3 (Bld) [Moles/Vol] 22 mmol/L Normal 21-32 [facility] Comment on above: Order Comment: [facility] has implemented the eGFR calculation approach that does not have a coefficient for race that conforms to the NKF-ASN Task Force Recommendations. Performed By: #### 4 6126 #### [facility] [address] [address] Twin Marley M.D. [id number] Potassium [Moles/Vol] 4.2 mmol/L Normal 3.5-5.1 [facility] Comment on above: Order Comment: [facility] has implemented the eGFR calculation approach that does not have a coefficient for race that conforms to the NKF-ASN Task Force Recommendations. Result Comment: Sljs htly Hemolyzed Performed By: #### 4 [id number] #### LAB [address] [address] Twin Marley M.D. [id number] Protein [Mass/Vol] 6.6 g/dL Normal 6.0-8.0 [facility] Comment on above: Order Comment: [facility] has implemented the eGFR calculation approach that does not have a coefficient for race that conforms to the NKF-ASN Task Force Recommendations. Performed By: #### 4 [id number] #### LAB [address] [address] Twin Marley M.D. [id number] Sodium [Moles/Vol] 133 mmol/L Low 135-145 [facility] Comment on above: Order Comment: [facility] has implemented the eGFR calculation approach that does not have a coefficient for race that conforms to the NKF-ASN Task Force Recommendations. Performed By: #### 4 [id number] #### LAB [address] [address] Twin Marley M.D. [id number] Urea nitrogen [Mass/Vol] 20 mg/dL Normal 8-25 [facility] Comment on above: Order Comment: [facility] has implemented the eGFR calculation approach that does not have a coefficient for race that conforms to the NKF-ASN Task Force Recommendations. Performed By: #### 4 [id number] #### LAB [address] [address] Twin Marley M.D. [id number] Urea nitrogen/Creatinine [Mass ratio] 22.7 mg/mg High 10.0-20.0 [facility] Comment on above: Order Comment: [facility] has implemented the eGFR calculation approach that does not have a coefficient for race that conforms to the NKF-ASN Task Force Recommendations. Performed By: #### 4 [id number] #### LAB [address] [place], [place] [address] Twin Marley M.D. [id number] Comprehensive metabolic 2000 panelOrdered By: Tammy Maldonado on 11-01-2023 Albumin [Mass/Vol] 4.0 g/dL 3.2 - 5.2 g/dL [facility] ALP [Catalytic activity/Vol] 91 U/L 40 - 150 U/L [facility] ALT [Catalytic activity/Vol] 86 U/L High 0-50 U/L [facility] Comment on above: Specimen Lipemic Specimen ultrafuged Anion gap [Moles/Vol] 16 mmol/L 10 - 2 0 mmol/L [facility] AST [Catalytic activity/Vol] 53 U/L High 0-50 U/L [facility] Comment on above: Slightly Hemolyzed Specimen Lipemic Specimen ultrafuged Bilirubin [Mass/Vol] 0.6 mg/dL 0.0 - 1 .3 mg/dL [facility] Calcium [Mass/Vol] 8.7 mg/dL 8.4 - 10. 2 mg/dL [facility] Chloride [Moles/Vol] 99 mmol/L 98 - 10 8 mmol/L [facility] Creatinine [Mass/Vol] 0.88 mg/dL 0.50 - 1.30 mg/dL [facility] GFR/1.73 sq M.predicted CKD-EPI (S/P/Bld) [Vol rate/Area] 103 - PINF [facility] Comment on above: Estimated GFR was ca lculated using the 2020 CKD-EPI creatinine equation. Glucose [Mass/Vol] 192 mg/dL High 65 - 99 mg/dL [facility] HCO3 [Moles/Vol] 22 mmol/L 21 - 32 mmol/L [facility] Interpretation and review of laboratory results Abnormal [facility] Potassium [Moles/Vol] 4.2 mmol/L 3.5 - 5.1 mmol/L [facility] Comment on above: Slightly Hemolyzed Protein [Mass/Vol] 6.6 g/dL 6.0 - 8.0 g/dL [facility] Sodium [Moles/Vol] 133 mmol/L Low 135 - 145 mmol/L [facility] Urea nitrogen [Mass/Vol] 20 mg/dL 8 - 25 mg/dL [facility] Urea nitrogen/Creatinine [Mass ratio] 22.7 mg/mg High 10.0 - 20.0 [facility] has implemented the eGFR calculation approach that does not have a coefficient for race that conforms to the NKF-ASN Task Force Recommendations. [facility] D-DIMER, QUANTITATIVEon 10-13 D-DIMER QUANTITATIVE < Normal 0.27-0.49 [facility] Comment on above: Order Comment: A D-d carmelo concentration of <0.5 micrograms per milliliter FEU is considered a low probability for pulmonary embolus (PE) and deep venous thrombosis (DVT). Results of this test should always be interpreted in conjunction with the patient's medical history,clinical presentation, and other findings. Clinical diagnosis should not be based on the results of the D-dimer alone. Performed By: #### 4 [id number] #### [facility] [address] [place], [place] [address] Twin Marley M.D. [id number] ED Prov Noteon 11-01-2023 ED Prov [facility] EMERGENCY DEPARTMENT ATTENDING NOTE: NAME: Fernando Helton CSN: [id number] 53 y.o. PCP: Moises Patel MD History: Chief Complaint: Chest Pain HPI: The history was obtained from the patient. Fernando is a 53 y.o. male who presents with a chief complaint of Chest Pain. Patient has multiple medical problems including but not limited to CAD s/p stents and one-vessel CABG 2019 CHF DM HLD he states that for the past 3 weeks he has been sick. He has a nonproductive cough. For the past 4 days he has had chest pain midsternal nonradiating fairly constant but becomes worse with breathing and exertion. He also feels shortness of breath. He is to have a stress test in the near future. He has a headache and is occasionally wheezing, none currently, denies any other complaints Social history smokes 1 pack/day ED Course / Medical Decision Making: ED COURSE: 53-year-old male presents with chest pain shortness of breath and headache. Differentials include CAD PE CHF viral syndrome pleurisy. Twelve-lead EKG interpreted by myself demonstrates ventricular rate 99 TN 162 QRS 94 QT 370 QTc 04/15/1973, interpretation: Normal sinus rhythm, inferior infarct age undetermined, abnormal EKG, scooping of the ST segment in lead II no other evidence of ST elevation/depression or right heart strain. I have ordered labs chest x-ray aspirin and heparin drip. ED SCORING TOOLS HEART Score History: Highly suspicious ECG: Non-specific repolarization disturbance Age: 45-64 Risk Factors: >2 risk factors or hx of atherosclerotic disease Troponin: Less than or equal to normal limit HEART Score: 6 Labs reviewed, wbc 14. CXR demonstrates no acute findings. Given his history and risk factors he will require further workup and evaluation. He prefers Funk, transfer order placed Heart score 4-6 After reviewing the items above, I did look at previous medical documentation, such as recent hospitalizations, office visits, and/or recent consultations with PCP/specialist. SDOH: Another factor that I considered in Fernando's care was his Social Determinants of Health (SDOH). During this ED encounter, he did NOT appear to have any significant issues identified. Laboratory & Radiological Imaging (if done): Labs Reviewed BASIC METABOLIC PANEL - Abnormal; Notable for the following components: Result Value Glucose 271 (*) All other components within normal limits Narrative: [facility] Services has implemented the eGFR calculation approach that does not have a coefficient for race that conforms to the NKF-ASN Task Force Recommendations. CBC WITH AUTO DIFFERENTIAL - Abnormal; Notable for the following components: WBC 14.17 (*) Neutrophils Abs 8.71 (*) Eosinophils Abs 0.56 (*) All other components within normal limits NT PRO BNP - Normal Narrative: Pride Study Cut-offs Rule In: < /= 50 Years >450 pg/mL 51 Years - 75 Years >900 pg/mL 76 Years - 99 Years >1800 pg/mL Rule Out: All patients <300 pg/mL D-DIMER, QUANTITATIVE - Normal Narrative: A D-dimer concentration of <0.5 micrograms per milliliter FEU is considered a low probability for pulmonary embolus (PE) and deep venous thrombosis (DVT). Results of this test should always be interpreted in conjunction with the patient's medical history,clinical presentation, and other findings. Clinical diagnosis should not be based on the results of the D-dimer alone. TROPONIN CBC AND DIFFERENTIAL Narrative: The following orders were created for panel order CBC w/ Diff. Procedure Abnormality Status --------- ------ CBC Auto Differential[[id number]] Abnormal Final result Please view results for these tests on the individual orders. XR Chest 1 View Final Result No acute heart or lung disease identified. Workstation ID: [id number] Clinical Impression: 1. Chest pain, unspecified type ROS: Review of Systems Constitutional: Positive for fatigue. Negative for fever. Respiratory: Positive for cough and shortness of breath. Cardiovascular: Positive for chest pain and leg swelling. Gastrointestinal: Negative for abdominal pain, nausea and vomiting. Neurological: Positive for headaches. Positives and pertinent negatives as per HPI. All other systems were reviewed and are negative. Physical Exam: Patient Vitals for the past 24 hrs: BP Temp Pulse Resp SpO2 Weight 11/01/23 1340 (!) 120/94 97.9 degrees F (36.6 degrees C) (!) 103 16 97 % 121.1 kg (267 lb) Physical Exam Vitals and nursing note reviewed. Constitutional: General: He is not in acute distress. Appearance: Normal appearance. He is not ill-appearing. HENT: Head: Normocephalic and atraumatic. Nose: Nose normal. No rhinorrhea. Mouth/Throat: Mouth: Mucous membranes are moist. Pharynx: Oropharynx is clear. Eyes: Extraocular Movements: Extraocular movements intact. Conjunctiva/sclera: Conjunctivae normal. Cardiovas (more content not included)... Normal [facility] Glucose (Bld) [Mass/Vol]on 0 11-01-2023 Glucose [Mass/Vol] 212 mg/dL High 65 - 99 mg/dL [facility] Interpretation and review of laboratory results Abnormal [facility] Glucose [Mass/Vol] 178 mg/dL High 65 - 99 mg/dL [facility] Interpretation and review of laboratory results Abnormal [facility] HEMOGLOBIN A1Con 11-01-2023 Glucose [Mass/Vol] 240 mg/dL High 74-114 [facility] Comment on above: Performed By: #### 4 [id number] #### [facility] [address] [place], [place] [address] Twin Marley M.D. [id number] HbA1c (Bld) [Mass fraction] 10.0 % High 4.2-5.6 [facility] Comment on above: Performed By: #### 4 6126 #### [facility] [address] [place], [place] [address] Twin Marley M.D. [id number] HbA1c (Bld) [Mass fraction]o n 11-01-2023 Average glucose Estimated from glycated hemoglobin (Bld) [Mass/Vol] 240 mg/dL High 74 - 114 mg/dL [facility] Interpretation and review of laboratory results Abnormal [facility] Hemoglobin A1con 11-01-2023 HbA1c (Bld) [Mass fraction] 10.0 % High 4.2 - 5.6 % [facility] MAGNESIUM LEVELon 11-01-2023 Magnesium [Mass/Vol] 2.0 mg/dL Normal 1.6-2.4 [facility] Comment on above: Performed By: #### 4 6109 #### [facility] [address] [place], [place] [address] Twin Marley M.D. [id number] Magnesiumon 11-01-2023 Magnesium [Mass/Vol] 2.0 mg/dL 1.6 - 2 .4 mg/dL [facility] NT PRO BNPon 11-01-2023 Natriuretic peptide B (d) [Mass/Vol] 95 pg/mL Normal 0-300 [facility] Comment on above: Order Comment: Pride Study Cut-offs Rule In: < /= 50 Years >450 pg/mL 51 Years - 75 Years >900 pg/mL 76 Years - 99 Years >1800 pg/mL Rule Out: All patients <300 pg/mL Performed By: #### 4 7395 #### LAB [address] [place], [place] [address] Twin Marley M.D. [id number] No Panel Informationon 10-31 Interpretation and review of laboratory results Normal [facility] PHOSPHORUSon 11-01-2023 Phosphate [Mass/Vol] 3.3 mg/dL Normal 2.7-4.5 [facility] Comment on above: Performed By: #### 4 6126 #### [facility] [address] [address] Twin Marley M.D. [id number] POC GLUCOSE - [facility] 024 Glucose [Mass/Vol] 212 mg/dL High 65-99 [facility] Comment on above: Performed By: #### 4 6126 #### [facility] [address] [address] Twin Marley M.D. [id number] Glucose [Mass/Vol] 178 mg/dL High 65-99 [facility] Comment on above: Performed By: #### 4 6126 #### LAB [address] [address] Twin Marley M.D. [id number] Phosphoruson 11-01-2023 Phosphate [Mass/Vol] 3.3 mg/dL 2.7 - 4 .5 mg/dL [facility] TROPONINon 11-01-2023 TROPONIN T DELTA CHANGE INTERPRETATION No biomarker evidence of cardiac injury. Normal [facility] Comment on above: Performed By: #### 4 6608 #### [facility] [address] [address] Twin Marley M.D. [id number] TROPONIN T DELTA DIFFERENCE -1 ng/L Normal < = -/+ 7 change [facility] Comment on above: Performed By: #### 4 6608 #### LAB [address] [address] Twin Marley M.D. [id number] TROPONIN T NG/L 15 ng/L Normal <=22 [facility] Comment on above: Performed By: #### 4 6608 #### LAB [address] [address] wTin Marley M.D. [id number] TROPONIN T DELTA CHANGE INTERPRETATION No biomarker evidence of cardiac injury. [facility] Comment on above: Performed By: #### 4 6608 #### LAB [address] [address] Twin Marley M.D. [id number] TROPONIN T DELTA DIFFERENCE -2 ng/L Normal < = -/+ 7 change [facility] Comment on above: Performed By: #### 4 6608 #### LAB [address] [address] Twin Marley M.D. [id number] TROPONIN T NG/L 14 ng/L Normal <=22 [facility] Comment on above: Performed By: #### 4 6608 #### [facility] [address] [place], [place] [address] Twin Marley M.D. [id number] BASELINE TROPONIN T NG/L 16 ng/L Normal <=22 [facility] Comment on above: Performed By: #### 4 6608 #### [facility] [address] [place] [address] Twin Marley M.D. [id number] TROPONIN T INTERPRETATION Normal Normal [facility] Comment on above: Performed By: #### 4 6608 #### [facility] [address] [place], [place] [address] Twin Marley M.D. [id number] Troponinon 11-01-2023 Delta Difference Troponin T -1 ng/L < = -/+ 7 change [facility] Inter Troponin T Delta Change No biomarker evidence of cardiac injury. [facility] Troponin T 15 ng/L NINF - 22 ng/L [facility] Delta Difference Troponin T -2 ng/L < = -/+ 7 change [facility] Inter Troponin T Delta Change No biomarker evidence of cardiac injury. [facility] Troponin T 14 ng/L NINF - 22 ng/L [facility] XR CHEST PA/APon 11-01-2023 XR CHEST PA/AP EXAMINATION: XR CHEST PA/AP 11/01/2023 2:05 pm HISTORY: ORDERING SYSTEM PROVIDED HISTORY: cp, TECHNOLOGIST PROVIDED HISTORY: Illness/Other Reason for exam: chest pain AND sob Cancer History: u Surgery, RadiationHistory: yes Encounter Type: Unknown Additional signs and symptoms: . ORDERING SYSTEM PROVIDED DIAGNOSIS CODES: COMPARISON: 07/21/2022 FINDINGS: Heart and vascularity are unremarkable. Lungs are free of focal infiltrates. Median sternotomy sutures are noted. EKG leads overlie the chest. IMPRESSION: No acute heart or lung disease identified. Workstation ID: [id number] Dictated by: ALE PABON on SunNov 01, 2023 2:17:15 PM EDT Transcribed by: ALE PABON on SunNov 01, 2023 2:17:15 PM EDT Finalized by: ALE PABON on SunNov 01, 2023 2:17:15 PM EDT [facility] Comment on above: Order Comment: Injur y/Trauma or Illness?:Illness/Other How long have you had these symptoms (acute/chronic)?:Acute Reason for exam?:chest pain AND sob History of cancer?:u Surgeries, chemotherapy, or radiation?:yes cardiac cath Type of Exam?:Unknown Additional signs and symptoms?:. ECHOCARDIOGRAM COMPLETE W CO NTRASTon 05-30-2023 ECHOCARDIOGRAM COMPLETE W CONTRAST Patient Info Name: FERNANDO HELTON Age: 52 years : 1970 Gender: Male Ht: 168 cm Wt: 115 kg BSA: 2.37 m2 HR: 80 bpm BP: 171 / 100 mmHg Heart Rhythm: Sinus Rhythm Technical Quality: Technically difficult Exam Date: 05/30/2023 7:04 AM Patient Status: Outpatient [employer] Driver: Shock, Viviana, RDCS, RVT Exam Type: ECHOCARDIOGRAM COMPLETE W CONTRAST Study Info Indications R55 - Syncope and collapse Referring Physician: Anita Rowland MD; [id number] BMI: 40.83 kg/m2 Summary 1. Left ventricular chamber dimension is normal. 2. The basal anterior wall, mid anterior wall, and mid anteroseptal are hypokinetic. 3. The apex, and mid inferoseptal are akinetic. 4. Left ventricular systolic function is moderately reduced with an ejection fraction by Biplane Method of Discs of 41 %. 5. The left ventricular diastolic function is grade I diastolic dysfunction, consistent with low or normal atrial pressures. History/Risk Factors Hypertension: Yes Dyslipidemia: Yes Diabetic Therapy: Oral, Insulin Peripheral Arterial Disease (PAD): Yes Myocardial Infarction ([place]): Yes Obesity: Yes Coronary Artery Disease (CAD) Yes Congestive Heart Failure (CHF): Hx CHF Date of Prior [place]: 05/09/2012 Diabetes Mellitus: Yes COPD: On Meds Tobacco Use: Former Cerebrovascular Disease: TIA Family History: Coronary Artery Disease History/Risk Factors Patient has prior CABG on 01/13/2019. Prior Interventions Pacemaker: No PCI: Yes CABG: Yes ICD: No Date of PCI: 09/24/2014 Date of CAB01/13/2019 Procedure(s): Complete two-dimensional, color flow and Doppler transthoracic echocardiogram is performed with contrast. Definity explained to patient. Patient verbalizes understanding and agrees to proceed. Definity 1.3ml/8.7ml normal sterile saline 2 ml total given IV over 30-60 seconds. Left Ventricle Left ventricular chamber dimension is normal. Left ventricular systolic function is moderately reduced with an ejection fraction by Biplane Method of Discs of 41 %. Normal left ventricular mass. Left ventricular segmental wall motion is abnormal. The left ventricular diastolic function is grade I diastolic dysfunction, consistent with low or normal atrial pressures. The apex, and mid inferoseptal are akinetic. The basal anterior wall, mid anterior wall, and mid anteroseptal are hypokinetic. All other cui appear normal. Right Ventricle Right ventricular chamber dimension is normal. Right ventricular systolic function is reduced. Left Atria Left atrial chamber is normal with a left atrial volume index of 27 ml/m2 by BP MOD. Right Atria Right atrial chamber dimension is normal. Aortic Valve The aortic valve is trileaflet. There is no aortic valve sclerosis. There is no aortic valve stenosis. There is no aortic valve regurgitation. Pulmonic Valve The pulmonic valve is normal. There is no pulmonic valve stenosis. There is trace pulmonic regurgitation. Mitral Valve The mitral valve has normal leaflets. There is no mitral valve stenosis. There is no mitral valve regurgitation. Tricuspid Valve The tricuspid valve leaflets are normal. There is no significant tricuspid valve stenosis. There is trace tricuspid valve regurgitation. There is no pulmonary hypertension, estimated right ventricle systolic pressure is 11 mmHg. Pericardium/Pleural There is no pericardial effusion. Inferior Vena Cava Normal inferior vena cava with <50% collapse upon inspiration consistent with elevated right atrial pressure. Aorta The aortic measurements are indexed to age and body surface area. The aortic root is dilated measuring 4.1 cm with an index of 1.7 cm/m2. The proximal ascending aorta is normal measuring 3.7 cm with an index of 1.6 cm/m2. Wall Motion Scoring Wall Motion Scoring Index: 2.00 Left Ventricular Outflow Tract - Name Value Normal - LVOT 2D - LVOT Diameter 2.3 cm LVOT Doppler - LVOT Peak Velocity 0.8 m/s LVOT Peak Gradient 3 mmHg LVOT Mean Gradient 2 mmHg LVOT VTI 18 cm LVOT VTI/AV VTI Ratio 0.9 LVOT Stroke Volume 75 ml LVOT Stroke Index 31.56 ml/m2 Pulmonic Valve - Name Value Normal - PV 2D - RVOT Diameter (2D) 2.5 cm 1.7-2.7 RVOT Doppler - RVOT Peak Velocity 52 cm/s RVOT Peak Gradient 1 mmHg RVOT Mean Gradient 1 mmHg (more content not included)... Normal [facility] NM MYOCARDIAL PERFUSION MULT I SPECTon 05-30-2023 NM MYOCARDIAL PERFUSION MULTI SPECT Patient Info Name: FERNANDO HELTON Age: 52 years : 1970 Gender: Male Ht: 168 cm Wt: 115 kg BSA: 2.37 m2 HR: 82 bpm BP: 180 / 112 mmHg Heart Rhythm: Sinus Rhythm Exam Date: 05/30/2023 8:00 AM Patient Status: Outpatient Any Known Allergies: See Chart Sales Representative Consultant: Kerry Jones, RT(N), IFTIKHAR, JAMES, Gilmer Jones RT(N), NCT Exam Type: NM MYOCARDIAL PERFUSION MULTI SPECT Study Info Indications - syncope/sob/cp Nuclear Physician: David Barfield MD Referring Physician: AMANDA; [id number] Primary Nurse: Chula Arredondo RN Supervising Stress Physician: David Barfield MD BMI: 40.66 kg/m2 Summary 1. Abnormal pharmacologic stress nuclear perfusion study with evidence for large anterior, septal, apical infarct with mild deana-infarct ischemia of the apex. Compared to 2020 images are similar.. 2. There is LV cavity enlargement. There are apical, septal and anterior wall motion abnormalities present. Resting ejection fraction is 38%. Ejection fraction diminished compared to 2021 although similar wall motion abnormalities present.. 3. Nondiagnostic pharmacologic ECG portion of stress nuclear perfusion study. Resting ST segment changes. No chest discomfort. No significant arrhythmias. Normal hemodynamic response to Lexiscan. 4. Resting hypertension off morning medications. 5. Large severe overall fixed perfusion defect of the septum, anterior, apical segments with a slight degree of reversibility of the mid and distal septum and apical segments. 6. Overall high-risk study based on SCAI criteria (>3% predicted annual cardiac mortality). History/Risk Factors Hypertension: Yes Dyslipidemia: Yes Diabetic Therapy: Oral, Insulin Peripheral Arterial Disease (PAD): Yes Myocardial Infarction ([place]): Yes Obesity: Yes Coronary Artery Disease (CAD) Yes Congestive Heart Failure (CHF): Hx CHF Date of Prior [place]: 05/09/2012 Diabetes Mellitus: Yes COPD: On Meds Tobacco Use: Former Cerebrovascular Disease: TIA Family History: Coronary Artery Disease History/Risk Factors Patient has a history of STEMI and cardiac arrest with V-fib on 09/25/2014, STEMI on 05/09/12 and history ISAC. Patient off home medications prior to study. Asthma: NO Caffeine in Last 24 Hours: No Seizure Disorder: No Prior Interventions Pacemaker: No PCI: Yes CABG: Yes ICD: No Date of PCI: 09/24/2014 Date of CAB01/13/2019 Prior Interventions PCI 12/25/14, 09/24/14, and 05/09/12. Radiopharmaceutical: Tc-99m Tetrofosmin Administration Site: IV - right antecubital Administered By: Kerry Jones RT(N), LEAD CARPENTER, [facility] Camera Used: [employer] D-SPECT Radiopharmaceutical: Tc-99m Tetrofosmin Administration Site: IV - right antecubital Administered By: Gilmer Jones RT(N), NCT Camera Used: [employer] [place] D-SPECT Image Protocol Protocol: Stress/Rest 1 Day Rest Radiopharmaceutical Dose: 24.3 mCi Imaging Date AND Time: 05/30/2023 10:15 AM Patient Position: supine Stress Radiopharmaceutical Dose: 8.5 mCi Imaging Date AND Time: 05/30/2023 9:15 AM Patient Position: upright and supine Injection to Imaging Time: 15 min Injection to Imaging Time: 60 min Total Radiation Dose: 7.3 mSv Injection Date AND Time: 05/30/2023 10:00 AM Injection Date AND Time: 05/30/2023 8:15 AM Procedure(s): Gated SPECT images acquired upright and supine post Tetrofosmin injection at peak stress. Gated SPECT images acquired supine post Tetrofosmin injection at rest. [facility] QGS/QPS application was utilized for processing and interpretation. SPECT Results Perfusion Findings Large severe overall fixed perfusion defect of the septum, anterior, apical segments with a slight degree of reversibility of the mid and distal septum and apical segments. Study Limitations: Insertion Point Artifact Summed Difference Score: 2 Summed Stress Score: 21 Summed Rest Score: 19 Functional Results - Name Value Normal - Stress - Stress LV Ejection Fraction 38 % 55-70 Stress LV End Diastolic Volume Index 92.50 ml/m2 Stress LV End Systolic Volume Index 52.80 ml/m2 Nuclear Stress Myocardial Mass 205.00 g Stress LV End Diastolic Volume 182.00 ml Stress LV End Systolic Volume 112.00 ml Transient Ischemic Dilatation 1.08 Functional Results - Name Value Normal - Rest - Resting LV Ejection Fraction 38 % 55-70 Resting LV End Diastolic Volume Index 91.60 ml/m2 Resting LV End Systolic Vo (more content not included)... Normal [facility] Comment on above: Order Comment: Injur y/Trauma or Illness?:Illness/Other How long have you had these symptoms (acute/chronic)?:Unknown Reason for exam?:SYNCOPE, SOB Type of Exam?:Unknown Additional signs and symptoms?:SYNCOPE, SOB MCT-CARDIAC EVENT MONITORon 04-25-2023 MCT-CARDIAC EVENT MONITOR This is a summary report. The complete report is available in the patient's medical record. If you cannot access the medical record, please contact the sending organization for a detailed fax or copy. ?? MCT REPORT: 04/02/2023 - 04/19/2023 ?? INDICATIONS: SYNCOPE This is a 30-day event monitor indication for the study is syncope Minimum heart rate 71 bpm, average 99 bpm, maximum 147 bpm Total ventricular ectopy burden 1% 1 episode nonsustained ventricular tachycardia lasting 10 beats, asymptomatic Supraventricular ectopy total burden less than 1% No high-grade AV block, no pauses, no atrial fibrillation 2 patient triggered events corresponded to sinus rhythm with PVCs, symptoms of fluttering and skipped beats noted Normal [facility] ABO/Rh Retypeon 12-07-2022 ABO/RH Recheck Result Negative Normal [facility] Comment on above: Result Comment: PERF ORMED BY: [facility] [address] [place] [address] PATHOLOGIST COMFORT STATION ATTENDANT TIBURCIO POWERS M.D. Activated partial thrombopla stin time (aPTT) in platelet poor plasma by coagulation aOrdered By: Jasen Campbell on 12-07-2022 aPTT Coag (PPP) [Time] 30.3 s 25.1-36.5 [facility] Comment on above: A hematocrit value g reater than 55% may lead to inaccurate results in coagulation testing. Patients having hematocrit values >55% require a special collection tube for coagulation studies. Please contact the laboratory at [phone] for redraw instructions. Alanine aminotransferase [En zymatic activity/volume] in Serum or PlasmaOrdered By: Jasen Campbell on 12-07-2022 ALT [Catalytic activity/Vol] 25 U/L 7-52 [facility] Albumin [Mass/volume] in Ser um or Plasma by Bromocresol green (BCG) dye binding methoOrdered By: Jasen Campbell on 12-07-2022 Albumin BCG dye [Mass/Vol] 4.3 g/dL 3.5-5.7 [facility] Alkaline phosphatase [Enzyma tic activity/volume] in Serum or PlasmaOrdered By: Jasen Campbell on 12-07-2022 ALP [Catalytic activity/Vol] 57 U/L 34-104 [facility] Amphetamine Screen Ql (U)Ord ered By: Jasen Campbell on 12-07-2022 Amphetamines Ql (U) Negative Negative [facility] Anisocytosis LM Ql (Bld)Orde red By: Jasen Campbell on 12-07-2022 Anisocytosis Ql (Bld) Slight Fir [facility] Aspartate aminotransferase [ Enzymatic activity/volume] in Serum or PlasmaOrdered By: Jasen Campbell on 12-07-2022 AST [Catalytic activity/Vol] 25 U/L 13-39 [facility] Barbiturates [Presence] in U rine by Screen methodOrdered By: Jasen Campbell on 12-07-2022 Barbiturates Screen Ql (U) Negative Negative [facility] Basophils Auto (Bld) [#/Vol] Ordered By: Jasen Campbell on 12-07-2022 Basophils (Bld) [#/Vol] N/A [facility] Basophils/100 WBC Auto (Bld) Ordered By: Jasen Campbell on 12-07-2022 Basophils/100 WBC (Bld) N/A [facility] Basophils/100 WBC Manual cnt (Bld)Ordered By: Jasen Campbell on 12-07-2022 Basophils/100 WBC (Bld) 0 % 0-2 [facility] Benzodiazepines Screen Ql (U )Ordered By: Jasen Campbell on 12-07-2022 Benzodiazepines Ql (U) Negative Negative [facility] Benzoylecgonine [Presence] i n Urine by Screen methodOrdered By: Jasen Campbell on 12-07-2022 Benzoylecgonine Screen Ql (U) Positive Negative [facility] Bilirubin.total [Mass/volume ] in Serum or PlasmaOrdered By: Jasen Campbell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 Finalized by Shailesh Saucedo MD, RPVI on 08/06/2020 11:40 AM [facility] Ultrasound duplex arterial a rm leftOrdered By: Anita Rowland on 06-10-2020 Patient Info Name: FERNANDO HELTON Age: 49 years : 1970 Gender: Male Exam Date: 06/10/2020 1:52 PM Patient Status: Outpatient Carbide Grinder: Delma He, BS, RDMS (AB), RVT Referring Physician: ANITA ROWLAND ; Indications t88.8xxa - Other specified complications of surgical and medical care, not elsewhere classified, initial encounter - complication post cath Procedure Description 82912 Duplex scan of upper extremity arteries or [...] & complete palmar arch if clinically indicated. - Name Value - Left PSV - Left Prox Radial PSV 17 cm/s Left Mid Radial PSV 76 cm/s Left Distal Radial PSV 0 cm/s - Name Value - Left EDV - Left Prox Radial EDV 0 cm/s Left Mid Radial EDV 10 cm/s Left Distal Radial EDV 0 cm/s Risk Factors Patient has a history of hypertension, hyperlipidemia, tobacco use-previous and CAD. . Notification of Results: Results called to Cassandra Pritchett, and Radha at 06/10/2020 2:10:00 PM, DG. Report Signatures Finalized by Cole Martin MD on 06/10/2020 03:39 PM [facility] - 06/10/2020 3:40 PM EDT Patient Info Name: FERNANDO HELTON Age: 49 years : 1970 Gender: Male Exam Date: 06/10/2020 1:52 PM Patient Status: Outpatient Carbide Grinder: Delma He, BS, RDMS (AB), RVT Referring Physician: ANITA ROWLAND ; Indications t88.8xxa - Other specified complications of surgical and medical care, not elsewhere classified, initial encounter - complication post cath Procedure Description 58929 Duplex scan of upper extremity arteries or [...] & complete palmar arch if clinically indicated. - Name Value - Left PSV - Left Prox Radial PSV 17 cm/s Left Mid Radial PSV 76 cm/s Left Distal Radial PSV 0 cm/s - Name Value - Left EDV - Left Prox Radial EDV 0 cm/s Left Mid Radial EDV 10 cm/s Left Distal Radial EDV 0 cm/s Risk Factors Patient has a history of hypertension, hyperlipidemia, tobacco use-previous and CAD. . Notification of Results: Results called to Cassandra Pritchett, and Radha at 06/10/2020 2:10:00 PM, ERIC. Report Signatures Finalized by Cole Martin MD on 06/10/2020 03:39 PM [facility] Cardiac catheterizationOrder ed By: Anita Rowland on [...] wall puncture, microwire was advanced, a 5/6 Kuwaiti sheath was advanced and flushed. Through the sheath the patient received a bolus of heparin, nitroglycerin, and verapamil. A long J-wire was advanced to the central circulation, additional IV heparin was given. All catheter exchanges were performed over the long J exchange wire. We used a 5 Kuwaiti JR 5 catheter, 5 Kuwaiti JL 3.0 catheter, 5 Kuwaiti pigtail catheter, and a 5 Kuwaiti BC catheter. Upon completion of the final [...] term care Condition: stable Anita Rowland MD [facility] ECG 12-LEADOrdered By: Zach Rowland on 06-02-2020 Atrial Rate 75 BPM [facility] P [place] 63 degrees [facility] P-R Interval 178 ms [facility] Q-T Interval 406 ms [facility] QRS Duration 94 ms [facility] QTC Calculation (Bezet) 453 ms [facility] R [place] 9 degrees [facility] T [place] 71 degrees [facility] Ventricular Rate 75 BPM [facility] th Normal sinus rhythm Low voltage QRS Cannot rule out Anteroseptal infarct , age undetermined Abnormal ECG Confirmed by Maykel Whitney MD ([id number]) on 06/02/2020 8:37:01 AM [facility] Basic metabolic 2000 panelOr dered By: Anita Rowland on 05-28-2020 Anion gap [Moles/Vol] 11 mmol/L 10 - 2 0 mmol/L [facility] Calcium [Mass/Vol] 8.8 mg/dL 8.4 - 10. 2 mg/dL [facility] Chloride [Moles/Vol] 105 mmol/L 98 - 10 8 mmol/L [facility] Creatinine [Mass/Vol] 1.12 mg/dL 0.50 - 1.30 Oh [facility] GFR/1.73 sq M.predicted CKD-EPI (S/P/Bld) [Vol rate/Area] 77 >=60 mL/min/1.73 m2 [facility] Glucose [Mass/Vol] 108 mg/dL High 65 - 99 mg/dL [facility] HCO3 [Moles/Vol] 27 mmol/L 21 - 32 mmol/L [facility] Interpretation and review of laboratory results Abnormal [facility] Potassium [Moles/Vol] 4.3 mmol/L 3.5 - 5.1 mmol/L [facility] Sodium [Moles/Vol] 139 mmol/L 135 - 145 mmol/L [facility] Urea nitrogen [Mass/Vol] 19 mg/dL 8 - 25 mg/dL [facility] Urea nitrogen/Creatinine [Mass ratio] 17.0 mg/mg [facility] The eGFR should be u sed for monitoring renal function only and not for medication dosing. [facility] MYOCARDIAL PERFUSION MULT I SPECTOrdered By: Anita Rowland on 05-28-2020 LV Stress Diastolic Volume 135 ml [facility] LV Stress Systolic Volume 67 ml [facility] Stress Nuc Stress EF 50 % [facility] Patient Info Name: FERNANDO HELTON Age: 49 years : 1970 Gender: Male Ht: 168 cm Wt: 118 kg BSA: 2.41 m2 HR: 80 bpm BP: 123 / 79 mmHg Heart Rhythm: Sinus Rhythm Exam Date: 05/28/2020 8:00 AM Patient Status: Recurring patient Any Known Allergies: See Chart Sales Representative Consultant: Gilmer Jones RT(N), NCT Exam Type: RI MYOCARDIAL PERFUSION MULTI SPECT Study Info Indications R94.31 - Abnormal electrocardiogram ECG EKG - NSVT Nuclear Physician: Emma Atkinson MD, RPVI Referring Physician: DR. PATEL; [id number] Primary Nurse: Chula Arredondo RN Supervising Stress [...] Peripheral Arterial Disease (PAD): Yes Myocardial Infarction ([place]): Yes Coronary Artery Disease (CAD) Yes Congestive [...] right antecubital Administered By: Gilmer Jones RT(N), DERICK Camera Used: [employer] D-SPECT Radiopharmaceutical: Tc-99m Tetrofosmin Administration Site: IV - right antecubital Administered By: Gilmer Jones RT(N), NCT Camera Used: [employer] D-SPECT Image Protocol Protocol: Stress/Rest 1 Day [...] acquired supine post Tetrofosmin injection at rest. [facility] [employer]/PRX application was utilized for processing and interpretation. [...] Global Ischemia Extent: 3 % Functional Results - Name Value Normal - Stress - Stress LV Ejection Fraction 50 % 55-70 Stress LV End Diastolic Volume Index 60.30 ml/m2 Stress LV End Systolic Volume Index 32.10 ml/m2 Nuclear Stress Myocardial Mass 152.00 g S (more content not included)... [facility] Interface, Rad In Heartlab Xper Echopacs - 05/28/2020 2:37 PM EDT Patient Info Name: FERNANDO HELTON Age: 49 years : 1970 Gender: Male Ht: 168 cm Wt: 118 kg BSA: 2.41 m2 HR: 80 bpm BP: 123 / 79 mmHg Heart Rhythm: Sinus Rhythm Exam Date: 05/28/2020 8:00 AM Patient Status: Recurring patient Any Known Allergies: See Chart Sales Representative Consultant: Gilmer Jones RT(N), NCT Exam Type: NM MYOCARDIAL PERFUSION MULTI SPECT Study Info Indications R94.31 - Abnormal electrocardiogram ECG EKG - NSVT Nuclear Physician: Emma Atkinson MD, RPVI Referring Physician: DR. PATEL; [id number] Primary Nurse: Chula Arredondo RN Supervising Stress [...] Peripheral Arterial Disease (PAD): Yes Myocardial Infarction ([place]): Yes Coronary Artery Disease (CAD) Yes Congestive [...] By: Gilmer Jones RT(N), NCT Camera Used: [employer] D-SPECT Radiopharmaceutical: Tc-99m Tetrofosmin Administration Site: IV - right antecubital Administered By: Gilmer Jones RT(N), NCT Camera Used: [employer] [place] D-SPECT Image Protocol Protocol: Stress/Rest 1 Day [...] acquired supine post Tetrofosmin injection at rest. [facility] [employer]/QPS application was utilized for processing and interpretation. [...] Global Ischemia Extent: 3 % Functional Results - Name Value Normal - Stress - Stress LV Ejection Fraction 50 % 55-70 Stress LV End Diastolic Volume Index 60.30 ml/m2 Stress LV End Systolic Volume Index 32.10 ml/m2 Nuclear Stress Myocardial Mass 152.00 g Stress LV End Diastolic Volume 135.00 ml Stress LV End Systolic Volume 67.00 ml Transient Ischemic Dilata (more content not included)... [facility] COVID-19, MOLECULARon 2020 SARS-COV-2 RNA (KELL) Not Detected Normal Not Detecte d [facility] Comment on above: Order Comment: : [...] at the following links: For Healthcare Providers: https://www.fda.gov/media/702781/download For Patients: https://www.fda.gov/media/871170/download Performed By: #### L [id number] #### [facility] [place] [address] Roby Santos M.D. [id number] MRSA SCREENon 04-26-2020 MRSA DNA MEGHANN+probe Ql (Unsp spec) Negative Normal NEGATIVE [facility] Comment on above: Performed By: #### M RSAST #### Testing performed at [address] [address] Result Comment: TEST ING PERFORMED BY PCR B TYPE NATRIURETIC PEPTIDEon 04-25-2020 Natriuretic peptide B (Bld) [Mass/Vol] 52 pg/mL Normal [facility] Comment on above: Performed By: #### B TEACHER VOCAL #### Testing performed at [address] [address] CBCon 04-25-2020 ABSOLUTE BAS 0.1 10*3/uL Normal 0.0-0.2 [facility] Comment on above: Performed By: #### A CBC, PT, LIVR, CHEM7F #### [place] [address] ABSOLUTE EOS 0.10 10*3/uL Normal 0.0-0.7 [facility] Comment on above: Performed By: #### A CBC, PT, LIVR, CHEM7F #### Testing performed at [address] [address] ABSOLUTE NEUTROPHIL COUNT 11.3 10*3/uL High 1.4-6.5 [facility] Comment on above: Performed By: #### A CBC, PT, LIVR, CHEM7F #### Testing performed at [address] [address] Basophils/100 WBC (Bld) 0.6 % Normal 0.0-2.0 [facility] Comment on above: Performed By: #### A CBC, PT, LIVR, CHEM7F #### Testing performed at [address] [address] DTYPE AUTO DIFF Normal [facility] Comment on above: Performed By: #### A CBC, PT, LIVR, CHEM7F #### Testing performed at [address] [address] Eosinophils/100 WBC (Bld) 0.4 % Normal 0.0-11.0 [facility] Comment on above: Performed By: #### A CBC, PT, LIVR, CHEM7F #### Testing performed at [address] [address] Lymphocytes (Bld) [#/Vol] 2.80 10*3/uL Normal 1.2-3.4 [facility] Comment on above: Performed By: #### A CBC, PT, LIVR, CHEM7F #### Testing performed at [address] [address] Lymphocytes/100 WBC (Bld) 18.5 % Low 20.0-55.0 [facility] Comment on above: Performed By: #### A CBC, PT, LIVR, CHEM7F #### Testing performed at [address] [address] Monocytes (Bld) [#/Vol] 0.9 10*3/uL High 0.0-0.7 [facility] Comment on above: Performed By: #### A CBC, PT, LIVR, CHEM7F #### Testing performed at [address] [address] Monocytes/100 WBC (Bld) 5.9 % Normal 0.0-10.0 [facility] Comment on above: Performed By: #### A CBC, PT, LIVR, CHEM7F #### Testing performed at [address] [address] Neutrophils/100 WBC (Bld) 74.6 % Normal 37.0-75.0 [facility] Comment on above: Performed By: #### A CBC, PT, LIVR, CHEM7F #### Testing performed at [address] [address] Erythrocyte distribution width (RBC) [Ratio] 15.5 % High 11.5-14.5 [facility] Comment on above: Performed By: #### A CBC, PT, LIVR, CHEM7F #### Testing performed at [address] [address] Hematocrit (Bld) [Volume fraction] 44.6 % Normal 42.0-52.0 [facility] Comment on above: Performed By: #### A CBC, PT, LIVR, CHEM7F #### Testing performed at [address] [address] Hemoglobin (Bld) [Mass/Vol] 14.7 g/dL Normal 14.0-18.0 [facility] Comment on above: Performed By: #### A CBC, PT, LIVR, CHEM7F #### Testing performed at [address] [address] MCH (RBC) [Entitic mass] 27.1 pg Normal 26.0-35.0 [facility] Comment on above: Performed By: #### A CBC, PT, LIVR, CHEM7F #### Testing performed at [address] [address] MCHC (RBC) [Mass/Vol] 32.9 g/dL Normal 27.0-37.0 [facility] Comment on above: Performed By: #### A CBC, PT, LIVR, CHEM7F #### Testing performed at [address] [address] MCV (RBC) [Entitic vol] 82.1 fL Normal 80.0-100.0 [facility] Comment on above: Performed By: #### A CBC, PT, LIVR, CHEM7F #### Testing performed at [address] [address] Platelet mean volume (Bld) [Entitic vol] 8.5 fL Normal 7.4-11.0 [facility] Comment on above: Performed By: #### A CBC, PT, LIVR, CHEM7F #### Testing performed at [address] [address] Platelets (Bld) [#/Vol] 308 10*3/uL Normal 130.0-400.0 [facility] Comment on above: Performed By: #### A CBC, PT, LIVR, CHEM7F #### Testing performed at [address] [address] RBC (Bld) [#/Vol] 5.43 10*6/uL Normal 4.0-6.1 [facility] Comment on above: Performed By: #### A CBC, PT, LIVR, CHEM7F #### Testing performed at [address] [address] WBC (Bld) [#/Vol] 15.2 10*3/uL High 3.6-11.0 [facility] Comment on above: Performed By: #### A CBC, PT, LIVR, CHEM7F #### [place] [address] CHEM 7 FASTINGon 04-25-2020 Creatinine [Mass/Vol] 1.02 mg/dL Normal 0.66-1.25 [facility] Comment on above: Performed By: #### A CBC, PT, LIVR, CHEM7F #### Testing performed at [place] [id number] EST. GFR, >60 Normal [facility] Comment on above: Performed By: #### A CBC, PT, LIVR, CHEM7F #### Testing performed at [place] [id number] EST. GFR,Non >60 Normal [facility] Comment on above: Performed By: #### A CBC, PT, LIVR, CHEM7F #### Testing performed at [place] [id number] GFR/1.73 sq M predicted among non-blacks MDRD (S/P/Bld) [Vol rate/Area] Average GFR for 40-49 years old = 99. Normal [facility] Comment on above: Result Comment: Identification Clerk sofiya Kidney disease, GFR = <60. Kidney failure, GFR = <15. The GFR estimate is not adjusted for extreme body surface area or acute process, nor has it been validated for women or ethnic groups other than and . Performed By: #### A CBC, PT, LIVR, CHEM7F #### Testing performed at [place] [id number] Urea nitrogen [Mass/Vol] 22 mg/dL High 7- [facility] Comment on above: Performed By: #### A CBC, PT, LIVR, CHEM7F #### Testing performed at [address] [address] Chloride [Moles/Vol] 106 mmol/L Normal 98-107 [facility] Comment on above: Performed By: #### A CBC, PT, LIVR, CHEM7F #### Testing performed at [address] [address] CO2 [Moles/Vol] 22 mmol/L Normal 22-30 [facility] Comment on above: Performed By: #### A CBC, PT, LIVR, CHEM7F #### Testing performed at [address] [address] Glucose [Mass/Vol] 131 mg/dL High 70-100 [facility] Comment on above: Result Comment: NORMAL <100 mg/dL PREDIABETES 101-126 mg/dL DIABETES 126 mg/dL or higher Performed By: #### A CBC, PT, LIVR, CHEM7F #### Testing performed at [address] [address] Potassium [Moles/Vol] 4.4 mmol/L Normal 3.5-5.1 [facility] Comment on above: Performed By: #### A CBC, PT, LIVR, CHEM7F #### Testing performed at [address] [address] Sodium [Moles/Vol] 137 mmol/L Normal 136-145 [facility] Comment on above: Performed By: #### A CBC, PT, LIVR, CHEM7F #### Testing performed at [address] [address] LIVER PANELon 04-25-2020 Albumin [Mass/Vol] 4.0 g/dL Normal 3.5-5.0 [facility] Comment on above: Performed By: #### A CBC, PT, LIVR, CHEM7F #### Testing performed at [address] [address] ALP [Catalytic activity/Vol] 77 U/L Normal 38-126 [facility] Comment on above: Performed By: #### A CBC, PT, LIVR, CHEM7F #### Testing performed at [address] [address] ALT [Catalytic activity/Vol] 40 U/L Normal 17-63 [facility] Comment on above: Performed By: #### A CBC, PT, LIVR, CHEM7F #### Testing performed at [address] [address] AST [Catalytic activity/Vol] 23 U/L Normal 15-41 [facility] Comment on above: Performed By: #### A CBC, PT, LIVR, CHEM7F #### Testing performed at [address] [address] Bilirubin [Mass/Vol] 0.6 mg/dL Normal 0.2-1.2 [facility] Comment on above: Performed By: #### A CBC, PT, LIVR, CHEM7F #### Testing performed at [address] [address] Bilirubin.direct [Mass/Vol] 0.1 mg/dL Normal 0.0-0.2 [facility] Comment on above: Performed By: #### A CBC, PT, LIVR, CHEM7F #### Testing performed at [address] [address] Protein [Mass/Vol] 7.1 g/dL Normal 6.3-8.2 [facility] Comment on above: Performed By: #### A CBC, PT, LIVR, CHEM7F #### [place] [address] NOVEL CORONAVIRUSon 04-26-19 21 NARRATIVE This test was perfor med using isothermal MEGHANN and has been approved as Emergency Use Authorization (EUA) for the qualitative detection [id number] nucleic acid. Normal [facility] Comment on above: Performed By: #### C OVID #### Testing performed at [address] [address] SARS-COV-2 NOT DETECTED Normal NOT DETECTED [facility] Comment on above: Result Comment: Nega tive [...] #### C OVID #### Testing performed at [address] [address] PROTIMEon 04-25-2020 INR Coag (PPP) [Relative time] 0.97 {INR} Normal 0.88-1.12 [facility] Comment on above: Result Comment: 2.0-3.0 THERAPEUTIC RANGE 2.5-3.5 MECHANICAL VALVE RANGE Performed By: #### A CBC, PT, LIVR, CHEM7F #### Testing performed at [place] [id number] PT Coag (PPP) [Time] 12.7 s Normal 11.8-14.4 [facility] Comment on above: Performed By: #### A CBC, PT, LIVR, CHEM7F #### Testing performed at [address] [address] RAPID FLU Aon 04-25-2020 INFLUENZA A Negative Normal NEGATIVE [facility] Comment on above: Performed By: #### R FLUAB #### Testing performed at [address] [address] INFLUENZA B Negative Normal NEGATIVE [facility] Comment on above: Result Comment: TEST ING PERFORMED BY MEGHANN Performed By: #### R FLUAB #### Testing performed at [address] [address] TROPONIN I, HIGH SENSITIVITY on 04-25-2020 TROPONIN I, HIGH SENSITIVITY 7 pg/mL Normal 0-20 [facility] Comment on above: Result Comment: Indeterminant: >12 to 100 pg/mL female >20 to 100 pg/mL male Indicative of myocardial injury. Serial sampling is recommended, a change of greater than or equal to 20 pg/mL is indicative of acute coronary syndrome. Performed By: #### R FLUAB #### Testing performed [address] [place] [address] XR CHEST AP PORTABLEon 04-25 XR CHEST AP PORTABLE EXAM: XR CHEST AP PORTABLE HISTORY: sob COMPARISON: Portable chest from 01/08/2018. TECHNIQUE: Portable chest was done at 5:41 PM. FINDINGS: Sternal wires indicate prior surgery. Trachea, mediastinum, heart size, diaphragm and bony elements are intact. No infiltrate or nodule or effusion or pneumothorax is noted. IMPRESSION: Nonacute portable chest. Normal [facility] XR CHEST PA AND LATERALon XR CHEST PA AND LATERAL EXAM: XR CHEST P A AND LATERAL 12/31/2019 2:56 PM EST HISTORY: sob COMPARISON: 01/08/2018 TECHNIQUE: PA and lateral views FINDINGS: Lungs are clear. The cardiomediastinal configuration is within normal limits. No acute bony abnormalities. Median sternotomy wires are visualized. IMPRESSION: No acute cardiopulmonary abnormalities. Normal [facility] COVID-19, MOLECULARon 2019 SARS-COV-2 RNA (KELL) Not Detected Normal Not Detecte d [facility] Comment on above: Result Comment: This [...] at the following links: For Healthcare Providers: https://www.fda.gov/media/385228/download For Patients: https://www.fda.gov/media/680681/download Performed By: #### L [id number] #### [facility] [address] [place] [address] Roby Santos M.D. [id number] CBC WITH AUTO DIFFERENTIALon 10-16-2019 Basophils (Bld) [#/Vol] 0.10 10*3/uL [facility] Basophils/100 WBC (Bld) 0.6 % [facility] Eosinophils (Bld) [#/Vol] 0.21 10*3/uL [facility] Eosinophils/100 WBC (Bld) 1.3 % [facility] Erythrocyte distribution width (RBC) [Entitic vol] 15.3 % High 11.6 - 14.8 % [facility] Hematocrit (Bld) [Volume fraction] 47.6 % 41 - 53 % [facility] Hemoglobin (Bld) [Mass/Vol] 15.2 g/dL 13.5 - 17.5 g/dL [facility] Immature granulocytes (Bld) [#/Vol] 0.11 10*3/uL [facility] Immature granulocytes/100 WBC (Bld) 0.70 % [facility] Comment on above: The IG parameter is the percentage of metamyelocytes, myelocytes and promyelocytes. An immature granulocyte count (IG) of 1% or more suggests the possibility of infection, an IG count of 3% is very likely related to an infection. Interpretation and review of laboratory results Abnormal [facility] Lymphocytes (Bld) [#/Vol] 5.08 10*3/uL High [facility] Lymphocytes/100 WBC (Bld) 32.5 % [facility] MCH (RBC) [Entitic mass] 27.4 pg 26 - 34 pg [facility] MCHC (RBC) [Mass/Vol] 31.9 g/dL 31 - 37 g/dL [facility] MCV (RBC) [Entitic vol] 85.9 fL 80 - 100 fL [facility] Monocytes (Bld) [#/Vol] 1.39 10*3/uL [facility] Monocytes/100 WBC (Bld) 8.9 % [facility] Neutrophils (Bld) [#/Vol] 8.72 10*3/uL High [facility] Neutrophils/100 WBC (Bld) 56.0 % [facility] Comment on above: Peripheral smear rev iewed manually Nucleated RBC (Bld) [#/Vol] 0.00 10*3/uL [facility] Nucleated RBC/100 WBC (Bld) [Ratio] 0.0 % [facility] Platelet mean volume (Bld) [Entitic vol] 10.3 fL 9.4 - 12.4 fL [facility] Platelets (Bld) [#/Vol] 306 10*3/uL [facility] RBC (Bld) [#/Vol] 5.54 10*6/uL [facility] WBC (Bld) [#/Vol] 15.61 10*3/uL [facility] Metabolic Pane bony 10-16-2019 Albumin [Mass/Vol] 3.2 g/dL 3.2 - 5.2 g/dL [facility] ALP [Catalytic activity/Vol] 87 U/L 40 - 150 U/L [facility] ALT [Catalytic activity/Vol] 46 U/L 14 - 65 U/L [facility] Anion gap [Moles/Vol] 10 mmol/L 10 - 2 0 mmol/L [facility] AST [Catalytic activity/Vol] 16 U/L 0 - 45 U/L [facility] Bilirubin [Mass/Vol] 0.4 mg/dL 0 - 1.3 mg/dL [facility] Calcium [Mass/Vol] 8.7 mg/dL 8.4 - 10. 2 mg/dL [facility] Chloride [Moles/Vol] 108 mmol/L 98 - 10 8 mmol/L [facility] Creatinine [Mass/Vol] 1.09 mg/dL 0.50 - 1.30 [facility] GFR/1.73 sq M predicted among non-blacks MDRD (S/P/Bld) [Vol rate/Area] The eGFR should be used for monitoring renal function only and not for medication dosing. [facility] GFR/1.73 sq M.predicted CKD-EPI (S/P/Bld) [Vol rate/Area] 80 >=60 mL/min/1.73 m2 [facility] Glucose [Mass/Vol] 117 mg/dL High 65 - 99 mg/dL [facility] HCO3 [Moles/Vol] 26 mmol/L 21 - 32 mmol/L [facility] Interpretation and review of laboratory results Abnormal [facility] Potassium [Moles/Vol] 3.7 mmol/L 3.5 - 5.1 mmol/L [facility] Protein [Mass/Vol] 6.5 g/dL 6 - 8 g/dL [facility]th Sodium [Moles/Vol] 140 mmol/L 135 - 145 mmol/L [facility] Urea nitrogen [Mass/Vol] 28 mg/dL High 8 - 25 mg/dL [facility] Urea nitrogen/Creatinine [Mass ratio] 25.7 mg/mg High [facility] ECG 12-LEADon 10-16-2019 Atrial Rate 76 BPM [facility] P [place] 74 degrees [facility] P-R Interval 174 ms [facility] Q-T Interval 424 ms [facility] QRS Duration 90 ms [facility] QTC Calculation (Bezet) 477 [facility] [place] 11 degrees [facility] T [place] 62 degrees [facility] Ventricular Rate 76 BPM [facility] th Normal sinus rhythm Anteroseptal infarct , age undetermined Abnormal ECG Confirmed by EMMA ATKINSON MD ([id number]) on 10/16/2019 8:22:19 AM [facility] ECHOCARDIOGRAM 2D COMPLETEon 10-16-2019 Aortic valve area 3.74749 cm [facility] AV mean gradient 2.58463 mmHg [facility] th AV peak gradient 3.6017 mmHg [facility] th EF 38.6259 % [facility] Interface, Rad In [facility] Xper Echopacs - 10/16/2019 11:49 AM EDT Patient Info Name: FERNANDO HELTON Age: 49 years : 1970 Gender: Male Ht: 168 cm Wt: 118 kg BSA: 2.40 m2 HR: 72 bpm BP: 136 / 94 mmHg Heart Rhythm: Sinus Rhythm Technical Quality: Fair Exam Date: 10/16/2019 9:53 AM Patient Status: Outpatient [employer] Driver: Wally Longoria RCDS Exam Type: ECHOCARDIOGRAM COMPLETE W CONTRAST Study Info Indications - - Syncope Referring Physician: ERLINDA Clarke; [id number] BMI: 41.96 kg/m2 Summary 1. Left ventricular [...] Scoring Index: 2.12 Left Ventricular Outflow Tract - Name Value Normal - LVOT 2D - LVOT Diameter 2.29 cm LVOT Doppler - LVOT Peak Velocity 0.90 m/s LVOT Peak Gradient 3 mmHg LVOT Mean Gradient 2 mmHg LVOT VTI 20.02 cm LVOT VTI/AV VTI Ratio 0.97 LVOT Stroke Volume 82.43 ml LVOT Stroke Index 29.39 ml/m2 LVOT CO 4.55 l/min LVOT CI 1.89 L/min/m2 Pulmonic Valve - Name Value Normal - PV 2D - RVOT Diameter (2D) 3.23 cm 1.70-2.70 PV Doppler - PV Peak Velocity 0.89 m/s PV Peak Gradient 3 mmHg Mitral Valve - Name Value Normal - MV Doppler - MV Peak Velocity 0.97 m/s MV Peak Gradient 3 mmHg MV Mean Gradient 1 mmHg MV VTI 27.22 cm MV Decel [place] 300.69 cm/s2 MV PHT 71 ms MV Area (PHT) 3.12 cm2 4.00-5.00 MV Area (Cont Eq VTI) 3.03 cm2 MV Regurgitation Doppler - MR VTI 149.84 cm MR PISA Radius 0.54 cm MR PISA Alias Velocity 28.26 cm/s MR ERO (PISA) 0.14 cm2 MR Volume (PISA) 21.64 ml MV Diastolic Function - MV E Peak Velocity 0.73 m/s MV A Peak Velocity 0.60 m/s MV E/A 1.23 MV Decel Time 243 ms MV Annular TDI - MV Septal e' Velocity 7.86 cm/s >=8.00 MV E/e' (Septal) 9.31 <=8.00 MV Lateral e' Velocity 7.97 cm/s >=10.00 MV E/e' (Lateral) 9.19 <=8.00 MV e' Average 7.92 MV E/e' (Average) 9.25 Tricuspid Valve - Name Value Normal - TV Regurgitation Doppler - TR Peak Velocity 2.02 m/s TR Peak Gradient 14 mmHg Estimated PAP/RSVP - RA Pressure 8 mmHg <=5 PA Systolic Pressure 24 mmHg <=36 RV Systolic Pressure 24 mmHg <36 Aorta - Name Value Normal - Ascending Aorta - Ao Root Diameter (2D) 4.20 cm 3.10-3.70 Ao Root Diam Index (2D) 1.75 cm/m2 1.50-1.90 Aortic Valve - Name Value Normal - AV Doppler - AV Peak Velocity 1.0 m/s AV Peak Gradient 4 mmHg AV Mean Gradient 2 mmHg AV VTI 20.70 cm AV Area (Cont Eq VTI) 3.98 cm2 AV Area Index (Cont Eq VTI) 2 cm2/m2 AV Area (Cont Eq Don) 3.84 cm2 AV Area Index (Cont Eq Don) 2 cm2/m2 LVOT Vmax/AV Vmax 0.93 LVOT VTI/AV VTI Ratio 0.97 AV Regurgitation 2D - LVOT Area 4.12 cm2 Ventricles - Name Value Normal - LV Dimensions 2D/MM - IVS Diastolic Thickness (2D) 1.17 cm 0.60-1.00 LVID Diastole (2D) 5.41 cm 4.20-5.80 LVIW Diastolic Thickness (2D) 1.08 cm 0.60-1.00 LVID Systole (2D) 4.17 cm 2.50-4.00 LVOT Diameter 2.29 cm LV Mass (2D Cubed) 243 g 88-224 LV Mass Index (2D Cubed) 101 g/m2 49-115 Relative Wall Thickness (2D) 0.40 <=0.42 LV Fractional Shortening/Ejection Fraction 2D/MM - LV Fractional Shortening (2D) 23 % 25-43 [...] (4C MOD) 90.94 ml RV Dimensions 2D/MM - RV Basal Diastolic Dimension 2.23 cm 2.50-4.10 TAPSE 1.81 cm >=1.70 RV Systolic Function - RV s' Velocity 0.09 m/s 0.10-0.19 Atria - Name Value Normal - LA Dimensions - LA Volume (4C MOD) 87.67 ml LA Volume (2C MOD) 60.26 ml LA Volume (4C A-L) 91.16 ml LA Volume (2C A-L) 61.58 ml LA Volume (BP A-L) 75.92 ml LA Volume Index (BP A-L) 31.59 ml/m2 <=34.00 LA Volume (BP MOD) 73.38 ml LA Volume Index (BP MOD) 30.53 ml/m2 16.00-34.00 RA Dimensions - RA Systolic Major [place] Length (4C) 5.70 cm <=5.30 RA Area (4C) 15.87 cm2 <=18.00 RA Area (4C) Index 6.60 cm2/m2 RA ESV (4C MOD) 38.16 ml 18.00-32.00 RA ESV Index (4C MOD) 15.87 ml/m2 <=32.00 Report Signatures Finalized by Emma Atkinson MD on 10/16/2019 11:48 AM [facility] Patient Info Name: FERNANDO HELTON Age: 49 years : 1970 Gender: Male Ht: 168 cm Wt: 118 kg BSA: 2.40 m2 HR: 72 bpm BP: 136 / 94 mmHg Heart Rhythm: Sinus Rhythm Technical Quality: Fair Exam Date: 10/16/2019 9:53 AM Patient Status: Outpatient [employer] Driver: Wally Longoria RCDS Exam Type: ECHOCARDIOGRAM COMPLETE W CONTRAST Study Info Indications - - Syncope Referring Physician: [id number] Hebert; [id number] BMI: 41.96 kg/m2 Summary 1. Left ventricular [...] Scoring Index: 2.12 Left Ventricular Outflow Tract - Name Value Normal - LVOT 2D - LVOT Diameter 2.29 cm LVOT Doppler - LVOT Peak Velocity 0.90 m/s LVOT Peak Gradient 3 mmHg LVOT Mean Gradient 2 mmHg LVOT VTI 20.02 cm LVOT VTI/AV VTI Ratio 0.97 LVOT Stroke Volume 82.43 ml LVOT Stroke Index 29.39 ml/m2 LVOT CO 4.55 l/min LVOT CI 1.89 L/min/m2 Pulmonic Valve - Name Value Normal - PV 2D - RVOT Diameter (2D) 3.23 cm 1.70-2.70 PV Doppler - PV Peak Velocity 0.89 m/s PV Peak Gradient 3 mmHg Mitral Valve - Name Value Normal - MV Doppler - MV Peak Velocity 0.97 m/s MV Peak Gradient 3 mmHg MV Mean Gradient 1 mmHg MV VTI 27.22 cm MV Decel [place] 300.69 cm/s2 MV PHT 71 ms MV Area (PHT) 3.12 cm2 4.00-5.00 MV Area (Cont Eq VTI) 3.03 cm2 MV Regurgitation Doppler - MR VTI 149.84 cm MR PISA Radius 0.54 cm MR PISA Alias Velocity 28.26 cm/s MR ERO (PISA) 0.14 cm2 MR Volume (PISA) 21.64 ml MV Diastolic Function - MV E Peak Velocity 0.73 m/s MV A Peak Velocity 0.60 m/s MV E/A 1.23 MV Decel Time 243 ms MV Annular TDI - MV Septal e' Velocity 7.86 cm/s >=8.00 MV E/e' (Septal) 9.31 <=8.00 MV Lateral e' Velocity 7.97 cm/s >=10.00 MV E/e' (Lateral) 9.19 <=8.00 MV e' Average 7.92 MV E/e' (Average) 9.25 Tricuspid Valve - Name Value Normal - TV Regurgitation Doppler - TR Peak Velocity 2.02 m/s TR Peak Gradient 14 mmHg Estimated PAP/RSVP - RA Pressure 8 mmHg <=5 PA Systolic Pressure 24 mmHg <=36 RV Systolic Pressure 24 mmHg <36 Aorta - Name Value Normal - Ascending Aorta - Ao Root Diameter (2D) 4.20 cm 3.10-3.70 Ao Root Diam Index (2D) 1.75 cm/m2 1.50-1.90 Aortic Valve - Name Value Normal - AV Doppler - AV Peak Velocity 1.0 m/s AV Peak Gradient 4 mmHg AV Mean Gradient 2 mmHg AV VTI 20.70 cm AV Area (Cont Eq VTI) 3.98 cm2 AV Area Index (Cont Eq VTI) 2 cm2/m2 AV Area (Cont Eq Don) 3.84 cm2 AV Area Index (Cont Eq Don) 2 cm2/m2 LVOT Vmax/AV Vmax 0.93 LVOT VTI/AV VTI Ratio 0.97 AV Regurgitation 2D - LVOT Area 4.12 cm2 Ventricles - Name Value Normal - LV Dimensions 2D/MM - IVS Diastolic Thickness (2D) 1.17 cm 0.60-1.00 LVID Diastole (2D) 5.41 cm 4.20-5.80 LVIW Diastolic Thickness (2D) 1.08 cm 0.60-1.00 LVID Systole (2D) 4.17 cm 2.50-4.00 LVOT Diameter 2.29 cm LV Mass (2D Cubed) 243 g 88-224 LV Mass Index (2D Cubed) 101 g/m2 49-115 Relative Wall Thickness (2D) 0.40 <=0.42 LV Fractional Shortening/Ejection Fraction 2D/MM - LV Fractional Shortening (2D) 23 % 25-43 [...] (4C MOD) 90.94 ml RV Dimensions 2D/MM - RV Basal Diastolic Dimension 2.23 cm 2.50-4.10 TAPSE 1.81 cm >=1.70 RV Systolic Function - RV s' Velocity 0.09 m/s 0.10-0.19 Atria - Name Value Normal - LA Dimensions - LA Volume (4C MOD) 87.67 ml LA Volume (2C MOD) 60.26 ml LA Volume (4C A-L) 91.16 ml LA Volume (2C A-L) 61.58 ml LA Volume (BP A-L) 75.92 ml LA Volume Index (BP A-L) 31.59 ml/m2 <=34.00 LA Volume (BP MOD) 73.38 ml LA Volume Index (BP MOD) 30.53 ml/m2 16.00-34.00 RA Dimensions - RA Systolic Major [place] Length (4C) 5.70 cm <=5.30 RA Area (4C) 15.87 cm2 <=18.00 RA Area (4C) Index 6.60 cm2/m2 RA ESV (4C MOD) 38.16 ml 18.00-32.00 RA ESV Index (4C MOD) 15.87 ml/m2 <=32.00 Report Signatures Finalized by Emma Atkinson MD on 10/16/2019 11:48 AM [facility] EKGon 10-16-2019 Ordered by an unspecified provider. [facility] MORPHOLOGYon 10-16-2019 RBC morphology finding Nom (Bld) Normal [facility] Comment on above: RBC Indices confirme d with manual peripheral smear review. Magnesiumon 10-16-2019 Interpretation and review of laboratory results Normal [facility] Magnesium [Mass/Vol] 2.1 mg/dL 1.6 - 2 .4 mg/dL [facility] POC Glucoseon 10-16-2019 Glucose [Mass/Vol] 118 mg/dL High 65 - 99 mg/dL [facility] Interpretation and review of laboratory results Abnormal [facility] TROPONINon 10-16-2019 Troponin I.cardiac [Mass/Vol] ng/mL <=45 ng/L [facility] Troponin I.cardiac [Mass/Vol] Normal [facility] URINALYSISon 10-16-2019 Bacteria Auto Ql (U) None Seen None Se en /hpf [facility] Bilirubin Ql (U) Negative Negative [facility] Clarity Refractometry automated (U) Clear Clear [facility] Color (U) Yellow Colorless, Yellow [facility] Epithelial cells.squamous Auto (Urine sed) [#/Area] <1 [facility] Glucose Auto test strip (U) [Mass/Vol] 50 Abnormal Negative mg/dL [facility] Hemoglobin Auto test strip Ql (U) Negative Negative [facility] Interpretation and review of laboratory results Abnormal [facility] Ketones (U) [Mass/Vol] Negative Negat bryan mg/dL [facility] Leukocyte esterase Auto test strip Ql (U) Negative Negative [facility] Nitrite Auto test strip Ql (U) Negative Negative [facility] pH (U) 5.5 [pH] [facility] Protein (U) [Mass/Vol] Negative Negat bryan mg/dL [facility] RBC Auto (Urine sed) [#/Area] 2 [facility] Specific gravity (U) [Rel density] 1.033 High [facility] Urobilinogen (U) [Mass/Vol] <2.0 <2.0 mg/dL [facility] WBC Auto (Urine sed) [#/Area] <1 [facility] Microscopic examinat ion is performed on all urinalysis samples and only positive findings are reported. The test for blood on the chemical analytic portion of urinalysis may also be positive due to hemoglobinuria and myoglobinuria and if red blood cells are present they are quantified by microscopic examination. [facility] Ethanol [Mass/Vol] mg/dL <10.00 mg/dL [facility] Comment on above: Alcohol cutoff: <10. 00 mg/dL = None Detected Interpretation and review of laboratory results Normal [facility] 10-15-2019 Anion gap [Moles/Vol] 10 mmol/L 10 - 2 0 mmol/L [facility] Calcium [Mass/Vol] 9.0 mg/dL 8.4 - 10. 2 mg/dL [facility] Chloride [Moles/Vol] 108 mmol/L 98 - 10 8 mmol/L [facility] Creatinine [Mass/Vol] 1.41 mg/dL High 0.50 - 1.30 [facility] GFR/1.73 sq M predicted among non-blacks MDRD (S/P/Bld) [Vol rate/Area] The eGFR should be used for monitoring renal function only and not for medication dosing. [facility] GFR/1.73 sq M.predicted CKD-EPI (S/P/Bld) [Vol rate/Area] 58 Low >=60 mL/min/1.73 m2 [facility] Glucose [Mass/Vol] 203 mg/dL High 65 - 99 mg/dL [facility] HCO3 [Moles/Vol] 23 mmol/L 21 - 32 mmol/L [facility] Interpretation and review of laboratory results Abnormal [facility] Potassium [Moles/Vol] 4.2 mmol/L 3.5 - 5.1 mmol/L [facility] Sodium [Moles/Vol] 137 mmol/L 135 - 145 mmol/L [facility] Urea nitrogen [Mass/Vol] 27 mg/dL High 8 - 25 mg/dL [facility] Urea nitrogen/Creatinine [Mass ratio] 19.1 mg/mg [facility] CBC WITH AUTO DIFFERENTIALon 10-15-2019 Basophils (Bld) [#/Vol] 0.05 10*3/uL [facility] Basophils/100 WBC (Bld) 0.3 % [facility] Eosinophils (Bld) [#/Vol] 0.01 10*3/uL [facility] Eosinophils/100 WBC (Bld) 0.1 % [facility] Erythrocyte distribution width (RBC) [Entitic vol] 15.3 % High 11.6 - 14.8 % [facility] Hematocrit (Bld) [Volume fraction] 45.2 % 41 - 53 % [facility] Hemoglobin (Bld) [Mass/Vol] 14.6 g/dL 13.5 - 17.5 g/dL [facility] Immature granulocytes (Bld) [#/Vol] 0.15 10*3/uL [facility] Immature granulocytes/100 WBC (Bld) 0.90 % [facility] Comment on above: The IG parameter is the percentage of metamyelocytes, myelocytes and promyelocytes. An immature granulocyte count (IG) of 1% or more suggests the possibility of infection, an IG count of 3% is very likely related to an infection. Lymphocytes (Bld) [#/Vol] 3.35 10*3/uL [facility] Lymphocytes/100 WBC (Bld) 19.9 % [facility] MCH (RBC) [Entitic mass] 27.2 pg 26 - 34 pg [facility] MCHC (RBC) [Mass/Vol] 32.3 g/dL 31 - 37 g/dL [facility] MCV (RBC) [Entitic vol] 84.2 fL 80 - 100 fL [facility] Monocytes (Bld) [#/Vol] 1.39 10*3/uL High [facility] Monocytes/100 WBC (Bld) 8.2 % [facility] Neutrophils (Bld) [#/Vol] 11.91 10*3/uL High [facility] Neutrophils/100 WBC (Bld) 70.6 % [facility] Nucleated RBC (Bld) [#/Vol] 0.00 10*3/uL [facility] Nucleated RBC/100 WBC (Bld) [Ratio] 0.0 % [facility] Platelet mean volume (Bld) [Entitic vol] 10.5 fL 9.4 - 12.4 fL [facility] Platelets (Bld) [#/Vol] 329 10*3/uL [facility] RBC (Bld) [#/Vol] 5.37 10*6/uL [facility] WBC (Bld) [#/Vol] 16.86 10*3/uL [facility] COVID-19, Molecularon 2019 Interpretation and review of laboratory results Normal [facility] SARS-CoV-2 Not Detected Not Detected [facility] Comment on above: This test was perfor med under the FDA's Emergency Use Authorization (EUA). Testing was performed using the M2M Solution ID NOW COVID-19 assay on the ID NOW platform. This test has not been approved for use in asymptomatic patients and its performance in this patient population has not been evaluated. Negative results do not rule out the presence of SARS-CoV-2/COVID-19. Fact sheets for the EUA can be found at the following links: For Healthcare Providers: https://www.fda.gov/media/448695/download For Patients: https://www.fda.gov/media/359208/download CT HEAD OR BRAIN WITHOUT CON TRASTon 10-15-2019 Interface, Rad In Luis Fernando ji Speech - 10/15/2019 10:25 PM EDT EXAMINATION: CT [...] of acute intracranial abnormality. Workstation ID: [id number] [facility] EXAMINATION: CT HEAD OR BRAIN WITHOUT CONTRAST [...] TISSUES: Unremarkable. BONES: No acute osseous abnormality. [facility] No CT evidence of ac soni intracranial abnormality. Workstation ID: [id number] [facility] ECG 12-LEADon 10-15-2019 Atrial Rate 85 BPM [facility] P [place] 61 degrees [facility] P-R Interval 170 ms [facility] Q-T Interval 388 ms [facility] QRS Duration 90 ms [facility] QTC Calculation (Bezet) 461 ms [facility] R [place] -4 degrees [facility] T [place] 80 degrees [facility] Ventricular Rate 85 BPM [facility] th Normal sinus rhythm Low voltage QRS Inferior infarct , age undetermined Cannot rule out Anteroseptal infarct , age undetermined Abnormal ECG ECG Cart Interpretation see physician note for interpretation. Confirmed by Brandy Kc ([id number]) on 10/15/2019 10:58:08 PM [facility] Hepatic Function Panel (LFT) on 10-15-2019 Albumin [Mass/Vol] 3.5 g/dL 3.2 - 5.2 g/dL [facility] ALP [Catalytic activity/Vol] 106 U/L 40 - 150 U/L [facility] ALT [Catalytic activity/Vol] 52 U/L 14 - 65 U/L [facility] AST [Catalytic activity/Vol] 21 U/L 0 - 45 U/L [facility] Bilirubin [Mass/Vol] 0.4 mg/dL 0 - 1.3 mg/dL [facility] Bilirubin.conjugated [Mass/Vol] 0.1 mg/dL 0 - 0.4 mg/dL [facility] Protein [Mass/Vol] 7.1 g/dL 6 - 8 g/dL [facility] alth NT Pro BNPon 10-15-2019 Natriuretic peptide.B prohormone N-Terminal [Mass/Vol] 137 pg/mL 0 - 300 pg/mL [facility] Pride Study Cut-offs Rule In: < /= 50 Years >450 pg/mL 51 Years - 75 Years >900 pg/mL 76 Years - 99 Years >1800 pg/mL Rule Out: All patients <300 pg/mL [facility] Otheron 10-15-2019 Interpretation and review of laboratory results Normal [facility] Interpretation and review of laboratory results Abnormal [facility] POC Glucoseon 10-15-2019 Glucose [Mass/Vol] 189 mg/dL Abnormal 65 - 99 mg/dL [facility] Interpretation and review of laboratory results Abnormal [facility] Glucose [Mass/Vol] 189 mg/dL High 65 - 99 mg/dL [facility] PT/INRon 10-15-2019 INR Coag (PPP) [Relative time] 1.0 {INR} [facility] Interpretation and review of laboratory results Normal [facility] PT Coag (PPP) [Time] 12.[address] [facility] During the induction phase of oral anticoagulation, the INR may not reflect the anticoagulation status of the patient. Therapeutic ranges for INR's are: Most clinical situations: INR 2.0-3.0 Mechanical Prosthetic Valve: INR 2.5-3.5 Critical: INR >5.0 [facility] TROPONINon 10-15-2019 Troponin I.cardiac [Mass/Vol] Normal [facility] Troponin I.cardiac [Mass/Vol] ng/mL <=45 ng/L [facility] XR Chest 1 Viewon 10-15-2019 No acute cardiopulmonary disease. Workstation ID: [id number] [facility] Interface, Rad In Luis Fernando yi Speechq - 10/15/2019 10:31 PM EDT EXAMINATION: XR CHEST PA/AP, 10/15/2019 HISTORY: diaphoresis COMPARISON: Chest, 09/22/2019. FINDINGS: Sternotomy wires are unchanged. Cardiac size, mediastinal contour and pulmonary vascularity appear within normal limits. The lungs are well expanded and appear clear. IMPRESSION: No acute cardiopulmonary disease. Workstation ID: [id number] [facility] EXAMINATION: XR CHES T PA/AP, 10/15/2019 HISTORY: diaphoresis COMPARISON: Chest, 09/22/2019. FINDINGS: Sternotomy wires are unchanged. Cardiac size, mediastinal contour and pulmonary vascularity appear within normal limits. The lungs are well expanded and appear clear. [facility] EKGon 09-23-2019 Ordered by an unspecified provider. [facility] Lipid Panelon 09-23-2019 Cholesterol [Mass/Vol] 155 mg/dL 100 - 199 mg/dL [facility] Comment on above: National Cholesterol Education Program Guidelines: Cholesterol Desirable: <200 mg/dL Borderline High: 200-239 mg/dL High: greater than or equal to 240 mg/dL Cholesterol in HDL [Mass/Vol] 38 mg/dL Low 40 - 59 [facility] Comment on above: National Cholesterol Education Program Guidelines: HDL Cholesterol Low: <40 mg/dL Near Optimal: 40-59 mg/dL High: greater than or equal to 60 mg/dL Cholesterol in LDL [Mass/Vol] 79 mg/dL 10 - 130 mg/dL [facility] Comment on above: National Cholesterol Education Program Guidelines: LDL Cholesterol Optimal: <100 mg/dL Near Optimal/above Optimal: 100-129 mg/dL Borderline High: 130-159 mg/dL High: 160-189 mg/dL Very High: greater than or equal to 190 mg/dL Cholesterol non HDL [Mass/Vol] 117 mg/dL [facility] Comment on above: National Cholesterol Education Program Guidelines: NON HDL Cholesterol Desirable: <130 mg/dL Borderline High: 130-159 mg/dL High: 160-189 mg/dL Very High: > or = 190 mg/dL Cholesterol.total/Teresa sterol in HDL [Mass ratio] 4.1 {ratio} ratio [facility] Comment on above: Males Cholesterol/HD L Ratio: Average risk: 5.0 1/2 average risk: 3.4 2 x average risk: 9.6 Interpretation and review of laboratory results Abnormal [facility] Triglyceride [Mass/Vol] 192 mg/dL High 30 - 150 mg/dL [facility] Comment on above: National Cholesterol Education Program Guidelines: Triglyceride Normal: <150 mg/dL Borderline High: 150-199 mg/dL High: 200-499 mg/dL Very High: greater than or equal to 500 mg/dL MR Brain With And Without Co ntraston 09-23-2019 No acute intracrania l abnormality and no abnormal enhancement within the limitation of the study. Workstation ID: [id number] [facility] Interface, Rad In Fu ji Speechq - 09/23/2019 12:57 PM EDT EXAMINATION: MR [...] limitation of the study. Workstation ID: [id number] [facility] EXAMINATION: MR XIOMARA Kincaid WITH AND WITHOUT [...] No tonsillar ectopia or mass is present.. [facility] POC Glucoseon 09-23-2019 Glucose [Mass/Vol] 102 mg/dL High 65 - 99 mg/dL [facility] Interpretation and review of laboratory results Abnormal [facility] Glucose [Mass/Vol] 110 mg/dL High 65 - 99 mg/dL [facility] Interpretation and review of laboratory results Abnormal [facility] Glucose [Mass/Vol] 123 mg/dL High 65 - 99 mg/dL [facility] Interpretation and review of laboratory results Abnormal [facility] Glucose [Mass/Vol] 113 mg/dL High 65 - 99 mg/dL [facility] Interpretation and review of laboratory results Abnormal [facility] CBC WITH AUTO DIFFERENTIALon 09-22-2019 Basophils (Bld) [#/Vol] 0.10 10*3/uL [facility] Basophils/100 WBC (Bld) 1.0 % [facility] Eosinophils (Bld) [#/Vol] 0.68 10*3/uL High [facility] Eosinophils/100 WBC (Bld) 6.8 % [facility] Erythrocyte distribution width (RBC) [Entitic vol] 15.9 % High 11.6 - 14.8 % [facility] Hematocrit (Bld) [Volume fraction] 44.9 % 41 - 53 % [facility] Hemoglobin (Bld) [Mass/Vol] 14.0 g/dL 13.5 - 17.5 g/dL [facility] Immature granulocytes (Bld) [#/Vol] 0.07 10*3/uL [facility] Immature granulocytes/100 WBC (Bld) 0.70 % [facility] Comment on above: The IG parameter is the percentage of metamyelocytes, myelocytes and promyelocytes. An immature granulocyte count (IG) of 1% or more suggests the possibility of infection, an IG count of 3% is very likely related to an infection. Interpretation and review of laboratory results Abnormal [facility] Lymphocytes (Bld) [#/Vol] 2.50 10*3/uL [facility] Lymphocytes/100 WBC (Bld) 25.2 % [facility] MCH (RBC) [Entitic mass] 26.6 pg 26 - 34 pg [facility] MCHC (RBC) [Mass/Vol] 31.2 g/dL 31 - 37 g/dL [facility] MCV (RBC) [Entitic vol] 85.2 fL 80 - 100 fL [facility] Monocytes (Bld) [#/Vol] 0.86 10*3/uL [facility] Monocytes/100 WBC (Bld) 8.7 % [facility] Neutrophils (Bld) [#/Vol] 5.72 10*3/uL [facility] Neutrophils/100 WBC (Bld) 57.6 % [facility] Nucleated RBC (Bld) [#/Vol] 0.00 10*3/uL [facility] Nucleated RBC/100 WBC (Bld) [Ratio] 0.0 % [facility] Platelet mean volume (Bld) [Entitic vol] 10.1 fL 9.4 - 12.4 fL [facility] Platelets (Bld) [#/Vol] 265 10*3/uL [facility] RBC (Bld) [#/Vol] 5.27 10*6/uL [facility] WBC (Bld) [#/Vol] 9.93 10*3/uL [facility] COVID-19, Molecularon 2019 Interpretation and review of laboratory results Normal [facility] SARS-CoV-2 Not Detected Not Detected [facility] Comment on above: This test was perfor med under the FDA's Emergency Use Authorization (EUA). Testing was performed using the M2M Solution ID NOW COVID-19 assay on the ID NOW platform. This test has not been approved for use in asymptomatic patients and its performance in this patient population has not been evaluated. Negative results do not rule out the presence of SARS-CoV-2/COVID-19. Fact sheets for the EUA can be found at the following links: For Healthcare Providers: https://www.fda.gov/media/295979/download For Patients: https://www.fda.gov/media/907534/download CT ANGIOGRAM HEAD NECKon EXAMINATION: CT ANGIOGRAM HEAD NECK HISTORY: ORDERING SYSTEM PROVIDED HISTORY: Ataxia, stroke suspected, TECHNOLOGIST PROVIDED HISTORY: Illness/Other Reason for exam: Ataxia, stroke suspected Encounter Type: Initial Additional signs and symptoms: Ataxia, stroke suspected ORDERING SYSTEM PROVIDED DIAGNOSIS CODES: I63.9 Acute CVA (cerebrovascular accident) ([facility]) COMPARISON: CT brain 09/22/2019. TECHNIQUE: Initial noncontrast [...] patient motion. There is no airway compromise. [facility], Rad In Fu ji Speechq - 09/22/2019 11:27 AM EDT EXAMINATION: CT ANGIOGRAM HEAD NECK HISTORY: ORDERING SYSTEM PROVIDED HISTORY: Ataxia, stroke suspected, TECHNOLOGIST PROVIDED HISTORY: Illness/Other Reason for exam: Ataxia, stroke suspected Encounter Type: Initial Additional signs and symptoms: Ataxia, stroke suspected ORDERING SYSTEM PROVIDED DIAGNOSIS CODES: I63.9 Acute CVA (cerebrovascular accident) ([facility]) COMPARISON: CT brain 09/22/2019. TECHNIQUE: Initial noncontrast [...] intracranial CTA. 3. No enhancing intracranial process. [employer] Workstation ID: [id number] [facility] 1. No extracranial carotid or vertebral artery stenosis. 2. Unremarkable intracranial CTA. 3. No enhancing intracranial process. [employer] Workstation ID: [id number] [facility] CT HEAD WITHOUT CONTRAST ([facility] [place])on 09-22-2019 Interface, Rad In [facility] - 09/22/2019 8:09 AM EDT EXAMINATION: CT [...] performed for further evaluation. Workstation ID: [id number] [facility] 1. No acute intracranial hemorrhage or large vessel ischemia by noncontrast CT. 2. Chronic paranasal sinus disease. If patient has a focal neurologic deficit or there is clinical suspicion for acute cerebrovascular accident, brain MRI may be performed for further evaluation. Workstation ID: [id number] [facility] EXAMINATION: CT HEAD WITHOUT CONTRAST (STROKE) HISTORY: [...] acute large vessel ischemia by noncontrast CT. [facility] Chem 709-22-2019 Anion gap [Moles/Vol] 11 mmol/L 10 - 2 0 mmol/L [facility] Chloride [Moles/Vol] 108 mmol/L 98 - 10 8 mmol/L [facility] Creatinine [Mass/Vol] 1.16 mg/dL 0.50 - 1.30 [facility] GFR/1.73 sq M predicted among non-blacks MDRD (S/P/Bld) [Vol rate/Area] The eGFR should be used for monitoring renal function only and not for medication dosing. [facility] GFR/1.73 sq M.predicted CKD-EPI (S/P/Bld) [Vol rate/Area] 74 >=60 mL/min/1.73 m2 [facility] Glucose [Mass/Vol] 129 mg/dL High 65 - 99 mg/dL [facility] H[facility]3 [Moles/Vol] 25 mmol/L 21 - 32 mmol/L [facility] Interpretation and review of laboratory results Abnormal [facility] Potassium [Moles/Vol] 4.3 mmol/L 3.5 - 5.1 mmol/L [facility] Sodium [Moles/Vol] 140 mmol/L 135 - 145 mmol/L [facility] Urea nitrogen [Mass/Vol] 24 mg/dL 8 - 25 mg/dL [facility] Urea nitrogen/Creatinine [Mass ratio] 20.7 mg/mg High [facility] ECG 12-LEADon 09-22-2019 Atrial Rate 67 BPM [facility] P [place] 63 degrees [facility] P-R Interval 172 ms [facility] Q-T Interval 404 ms [facility] QRS Duration 86 ms [facility] QTC Calculation (Bezet) 426 ms [facility] [place] 11 degrees [facility] T [place] 79 degrees [facility] Ventricular Rate [address] [facility] Normal sinus rhythm Low voltage QRS Possible Anterolateral infarct , age undetermined Abnormal ECG ECG Cart Interpretation see physician note for interpretation. Confirmed by Brandy Kc ([id number]) on 09/22/2019 3:33:43 PM [facility] Hemoglobin A1con 09-22-2019 Average glucose Estimated from glycated hemoglobin mass conc (Bld) 137 mg/dL High 68 - 114 mg/dL [facility] HbA1c (Bld) [Mass fraction] 6.4 % High 4 - 5.6 % [facility] Interpretation and review of laboratory results Abnormal [facility] Normal: 4.0% - 5.6% Increased risk for diabetes: 5.7% - 6.4% Diabetes: >= 6.5% Pediatrics: No established reference range Estimated average glucose: 68-114 mg/dL [facility] Metabolic Panelon 09-22-2019 Glucose [Mass/Vol] 126 mg/dL High 65 - 99 mg/[facility] Other[facility] 09-22-2019 Extra Tube Hold for add-ons. [facility] Comment on above: Auto resulted. Interpretation and review of laboratory results Abnormal [facility] POC Glucoseon 09-22-2019 Glucose [Mass/Vol] 121 mg/dL High 65 - 99 mg/dL [facility] Interpretation and review of laboratory results Abnormal [facility] Glucose [Mass/Vol] 164 mg/dL High 65 - 99 mg/dL [facility] Interpretation and review of laboratory results Abnormal [facility] Glucose [Mass/Vol] 105 mg/dL High 65 - 99 mg/dL [facility] Interpretation and review of laboratory results Abnormal [facility] TROPONINon 09-22-2019 Troponin I.cardiac [Mass/Vol] ng/mL <=45 ng/L [facility] Troponin I.cardiac [Mass/Vol] Normal [facility] XR Chest 1 Viewon 09-22-2019 1. Prior median sternotomy with mild cardiomegaly. 2. No acute cardiopulmonary process otherwise suspected. [employer] Workstation ID: [id number] [facility] Interface, Rad In Fu ji Speechq - [...] 2. No acute cardiopulmonary process otherwise suspected. [employer] Workstation ID: [id number] [facility] EXAMINATION: XR CHES T PA/AP 09/22/2019 7:58 [...] No acute osseous abnormality is otherwise identified. [facility] MONITORED CARDIAC REHAB SESS IONon 03-17-2019 ANGINA N [facility] ENDING HR 103 [facility] EXT - ADMIT TO CR DATE 01/31/2019 [facility] Max HR 118 [facility] Max Mets 4.4 [facility] MODE Treadmill [facility] RESTING HR 96 [facility] SESSION DATE 03/17/2019 [facility] SESSION DAYS [facility] SESSION LENGTH 0:45:52 [facility] SESSION LIST Session List: 03/10/[id number] 03/12/[id number] 03/13/[id number]/17/[id number] Scheduled:4 Attended:1 Compliance:25% [facility] SESSION NUMBER 1 [facility] SESSION THR 100-106 [facility] STATUS Cardiac Phase II [facility] Stress test only, exerciseon 03-13-2019 Angina Index 0 [facility] Baseline BP 124/68 mmHg [facility] Baseline HR 81 bpm [facility] [place] Treadmill Score 6.00 [facility] Estimated workload 7.0 METS [facility] alth Exercise duration (min) 6 min [facility] Exercise duration (sec) 0 sec [facility] Percent of predicted max HR 65 % [facility] Post peak BP 148/70 mmHg [facility] Post peak HR 113 bpm [facility] ST Elevation (mm) 0 mm [facility] Target HR 147 bpm [facility] Stress test results reviewed. Agree with below findings. [place] treadmill score not applicable. [facility] XR CHEST AP/PA AND LATon EXAMINATION: XR [...] pneumothorax. There is no acute osseous abnormality. [facility] Bibasilar atelectasi s with mild bronchial thickening. Central vascular prominence without edema. No consolidation, effusion, or pneumothorax. ASC/hb Workstation ID: [id number] [facility] Interface, Rad In Fu ji Speechq - 02/26/2019 2:44 AM EST EXAMINATION: XR [...] effusion, or pneumothorax. ASC/hb Workstation ID: [id number] [facility] Basic Metabolic Panelon 02-12 Anion gap [Moles/Vol] 9 mmol/L Low 10 - 2 0 mmol/L [facility] Calcium [Mass/Vol] 8.6 mg/dL 8.4 - 10. 2 mg/dL [facility] Chloride [Moles/Vol] 105 mmol/L 98 - 10 8 mmol/L [facility] Creatinine [Mass/Vol] 1.10 mg/dL 0.5 - 1.3 mg/dL [facility] GFR/1.73 sq M predicted among non-blacks MDRD (S/P/Bld) [Vol rate/Area] The eGFR should be used for monitoring renal function only and not for medication dosing. [facility] GFR/1.73 sq M.predicted CKD-EPI (S/P/Bld) [Vol rate/Area] 80 >=60 mL/min/1.73 m2 [facility] Glucose [Mass/Vol] 104 mg/dL High 65 - 99 mg/dL [facility] HCO3 [Moles/Vol] 28 mmol/L 21 - 32 mmol/L [facility] Interpretation and review of laboratory results Abnormal [facility] Potassium [Moles/Vol] 3.7 mmol/L 3.5 - 5.1 mmol/L [facility] Sodium [Moles/Vol] 138 mmol/L 135 - 145 mmol/L [facility] Urea nitrogen [Mass/Vol] 20 mg/dL 8 - 25 mg/dL [facility] Urea nitrogen/Creatinine [Mass ratio] 18.2 mg/mg [facility] CBC WITH AUTO DIFFERENTIALon 02-25-2019 Basophils (Bld) [#/Vol] 0.14 10*3/uL [facility] Basophils/100 WBC (Bld) 0.9 % [facility] Eosinophils (Bld) [#/Vol] 2.35 10*3/uL High [facility] Eosinophils/100 WBC (Bld) 15.2 % [facility] Erythrocyte distribution width (RBC) [Entitic vol] 14.8 % 11.6 - 14.8 % [facility] Hematocrit (Bld) [Volume fraction] 39.9 % Low 41 - 53 % [facility] Hemoglobin (Bld) [Mass/Vol] 13.0 g/dL Low 13.5 - 17.5 g/dL [facility] Immature granulocytes (Bld) [#/Vol] 0.14 10*3/uL [facility] Immature granulocytes/100 WBC (Bld) 0.90 % [facility] Comment on above: The IG parameter is the percentage of metamyelocytes, myelocytes, and promyelocytes. Interpretation and review of laboratory results Abnormal [facility] Lymphocytes (Bld) [#/Vol] 3.46 10*3/uL [facility] Lymphocytes/100 WBC (Bld) 22.4 % [facility] MCH (RBC) [Entitic mass] 26.5 pg 26 - 34 pg [facility] MCHC (RBC) [Mass/Vol] 32.6 g/dL 31 - 37 g/dL [facility] MCV (RBC) [Entitic vol] 81.4 fL 80 - 100 fL [facility] Monocytes (Bld) [#/Vol] 1.39 10*3/uL [facility] Monocytes/100 WBC (Bld) 9.0 % [facility] Neutrophils (Bld) [#/Vol] 7.99 10*3/uL High [facility] Neutrophils/100 WBC (Bld) 51.6 % [facility] Nucleated RBC (Bld) [#/Vol] 0.00 10*3/uL [facility] Nucleated RBC/100 WBC (Bld) [Ratio] 0.0 % [facility] Platelet mean volume (Bld) [Entitic vol] 9.3 fL 9 - 15.5 fL [facility] Platelets (Bld) [#/Vol] 406 10*3/uL [facility] RBC (Bld) [#/Vol] 4.90 10*6/uL [facility] ealth WBC (Bld) [#/Vol] 15.47 10*3/uL [facility] CT PULMONARY ARTERIESon 02-12 CT ANGIOGRAPHY CHEST WITH INTRAVENOUS CONTRAST ([id number]) CLINICAL HISTORY: ORDERING SYSTEM PROVIDED Dyspnea. S/P [...] No evidence of RV dysfunction. MEDIASTINUM: NO significantly/pathologi mahad enlarged lymph nodes are demonstrated.Postsurgic al changes. BONES/JOINTS: Postoperative changes in the sternum. [...] FINDINGS: Postsurgical changes in the anterior midline. [facility] Interface, Rad In Fu [employer]i Speechq - 02/25/2019 10:[address] ANGIOGRAPHY CHEST WITH INTRAVENOUS CONTRAST ([id number]) CLINICAL HISTORY: ORDERING SYSTEM PROVIDED Dyspnea. S/P [...] No evidence of RV dysfunction. MEDIASTINUM: NO significantly/pathologi mahad enlarged lymph nodes are demonstrated.Postsurgic al changes. BONES/JOINTS: Postoperative changes in the sternum. [...] the LEFT lung base; however. [id number] [place] [facility] of pulmonary embolus is [...] LEFT lung base; however. Workstation ID: [id number] [facility] ECG 12-LEADon 02-25-2019 Atrial Rate 83 BPM [facility] P [place] 55 degrees [facility] P-R Interval 164 ms [facility] Q-T Interval 360 ms [facility] QRS Duration 88 ms [facility] QTC Calculation (Bezet) 423 ms [facility] R [place] 24 degrees [facility] T [place] 98 degrees [facility] Ventricular Rate [address] [facility] Normal sinus rhythm Possible Left atrial enlargement Anteroseptal infarct , age undetermined T wave abnormality, consider lateral ischemia Abnormal ECG ECG Cart Interpretation see physician note for interpretation. Confirmed by Brandy Kc ([id number]) on 02/25/2019 10:46:50 PM [facility] NT Pro BNPon 02-25-2019 Interpretation and review of laboratory results Normal [facility] Natriuretic peptide.B prohormone N-Terminal [Mass/Vol] 227 pg/mL 0 - 300 pg/mL [facility] Pride Study Cut-offs Rule In: < /= 50 Years >450 pg/mL 51 Years - 75 Years >900 pg/mL 76 Years - 99 Years >1800 pg/mL Rule Out: All patients <300 pg/mL [facility] Otheron 02-25-2019 Extra Tube Hold for add-ons. [facility] Comment on above: Auto resulted. PT/INR (if on Coumadin)on INR Coag (PPP) [Relative time] 1.0 {INR} [facility] Interpretation and review of laboratory results Normal [facility] PT Coag (PPP) [Time] 12.[address] [facility] During the induction phase of oral anticoagulation, the INR may not reflect the anticoagulation status of the patient. Therapeutic ranges for INR's are: Most clinical situations: INR 2.0-3.0 Mechanical Prosthetic Valve: INR 2.5-3.5 Critical: INR >5.0 [facility] TROPONINon 02-25-2019 Troponin I.cardiac [Mass/Vol] Normal [facility] Troponin I.cardiac [Mass/Vol] ng/mL <=45 ng/L [facility] XR CHEST AP/PA AND LATon Mild improved aerati on of the left lung base, compared to 02/13/2019. Small residual left basilar pleural effusion. Recent CABG with stable mediastinal contours. ST/trn Workstation ID: [id number] [facility] EXAMINATION: XR CHES T AP/PA AND LAT [...] sternotomy and CABG. Mediastinal contours are stable. [facility] - 02/21/2019 5:32 PM EST EXAMINATION: XR [...] effusion. Recent CABG with stable mediastinal contours. ST/[facility] Workstation ID: [id number] [facility] XR CHEST AP/PA AND LATon No significant inter tatiana change compared to 02/06/2019. Small bibasilar pleural effusions with left basilar atelectasis. Recent CABG with stable mediastinal contours. ST[facility] Workstation ID: [id number] [facility] EXAMINATION: XR CHES T AP/PA AND LAT [...] median sternotomy and CABG. Stable mediastinal contours. [facility], Rad In [facility] - 02/13/2019 7:06 PM EST EXAMINATION: XR [...] stable mediastinal contours. ST/trw Workstation ID: [id number] [facility] XR CHEST AP/PA AND LATon Slight fluid and atelectasis suggested in the left lung base showing improvement from the prior study. Workstation ID: [id number] [facility] EXAMINATION: XR CHES T AP/PA AND LAT [...] base. Lung markings appear to be unremarkable. [facility] Interface, Rad In [facility] [employer] - 02/06/2019 [...] from the prior study. Workstation ID: [id number] [facility] Basic Metabolic Panelon 01-13 Anion gap [Moles/Vol] 9 mmol/L Low 10 - 2 0 mmol/L [facility] Calcium [Mass/Vol] 8.6 mg/dL 8.4 - 10. 2 mg/dL [facility] Chloride [Moles/Vol] 106 mmol/L 98 - 10 8 mmol/L [facility] Creatinine [Mass/Vol] 1.06 mg/dL 0.5 - 1.3 mg/dL [facility] GFR/1.73 sq M predicted among non-blacks MDRD (S/P/Bld) [Vol rate/Area] The eGFR should be used for monitoring renal function only and not for medication dosing. [facility] GFR/1.73 sq M.predicted CKD-EPI (S/P/Bld) [Vol rate/Area] 83 >=60 mL/min/1.73 m2 [facility] Glucose [Mass/Vol] 106 mg/dL High 65 - 99 mg/dL [facility] HCO3 [Moles/Vol] 27 mmol/L 21 - 32 mmol/L [facility] Interpretation and review of laboratory results Abnormal [facility] Potassium [Moles/Vol] 4.0 mmol/L 3.5 - 5.1 mmol/L [facility] Sodium [Moles/Vol] 138 mmol/L 135 - 145 mmol/L [facility] Urea nitrogen [Mass/Vol] 27 mg/dL High 8 - 25 mg/dL [facility] Urea nitrogen/Creatinine [Mass ratio] 25.5 mg/mg High [facility] CBCon 02-04-2019 Erythrocyte distribution width (RBC) [Entitic vol] 14.3 % 11.6 - 14.8 % [facility] Hematocrit (Bld) [Volume fraction] 35.4 % Low 41 - 53 % [facility] Hemoglobin (Bld) [Mass/Vol] 11.5 g/dL Low 13.5 - 17.5 g/dL [facility] Interpretation and review of laboratory results Abnormal [facility] MCH (RBC) [Entitic mass] 27.8 pg 26 - 34 pg [facility] MCHC (RBC) [Mass/Vol] 32.5 g/dL 31 - 37 g/dL [facility] MCV (RBC) [Entitic vol] 85.5 fL 80 - 100 fL [facility] Nucleated RBC (Bld) [#/Vol] 0.00 10*3/uL [facility] Nucleated RBC/100 WBC (Bld) [Ratio] 0.0 % [facility] Platelet mean volume (Bld) [Entitic vol] 8.6 fL Low 9 - 15.5 fL [facility] Platelets (Bld) [#/Vol] 514 10*3/uL High [facility] RBC (Bld) [#/Vol] 4.14 10*6/uL Low [facility] WBC (Bld) [#/Vol] 12.92 10*3/uL High [facility] POC Glucoseon 02-04-2019 Glucose [Mass/Vol] 107 mg/dL High 65 - 99 mg/dL [facility] Interpretation and review of laboratory results Abnormal [facility] XR Chest 1 Viewon 02-04-2019 Improving congestive pattern and lung volumes with persistent consolidation and small effusion in the left base. Workstation ID: [id number] [facility] EXAMINATION: XR CHES T PA/AP HISTORY: post-op COMPARISON: Chest radiograph, yesterday at 11:49 a.m. FINDINGS: Cardiomediastinal silhouette is normal. Improved lung volumes and diminishing vascular congestion. Persistent atelectasis and small effusion at the left base. No large right pleural effusion. No acute osseous abnormality. Prior median sternotomy. [facility] Interface, Rad In [facility] [employer] - 02/04/2019 5:31 [...] in the left base. Workstation ID: [id number] [facility] Basic Metabolic Panelon 01-13 Anion gap [Moles/Vol] 11 mmol/L 10 - 2 0 mmol/L [facility] Calcium [Mass/Vol] 9.0 mg/dL 8.4 - 10. 2 mg/dL [facility] Chloride [Moles/Vol] 104 mmol/L 98 - 10 8 mmol/L [facility] Creatinine [Mass/Vol] 1.03 mg/dL 0.5 - 1.3 mg/dL [facility] GFR/1.73 sq M predicted among non-blacks MDRD (S/P/Bld) [Vol rate/Area] The eGFR should be used for monitoring renal function only and not for medication dosing. [facility] GFR/1.73 sq M.predicted CKD-EPI (S/P/Bld) [Vol rate/Area] 86 >=60 mL/min/1.73 m2 [facility] Glucose [Mass/Vol] 109 mg/dL High 65 - 99 mg/dL [facility] HCO3 [Moles/Vol] 26 mmol/L 21 - 32 mmol/L [facility] Interpretation and review of laboratory results Abnormal [facility] Potassium [Moles/Vol] 4.1 mmol/L 3.5 - 5.1 mmol/L [facility] Sodium [Moles/Vol] 137 mmol/L 135 - 145 mmol/L [facility] Urea nitrogen [Mass/Vol] 26 mg/dL High 8 - 25 mg/dL [facility] Urea nitrogen/Creatinine [Mass ratio] 25.2 mg/mg High [facility] CBCon 02-03-2019 Erythrocyte distribution width (RBC) [Entitic vol] 14.3 % 11.6 - 14.8 % [facility] Hematocrit (Bld) [Volume fraction] 36.8 % Low 41 - 53 % [facility] Hemoglobin (Bld) [Mass/Vol] 12.1 g/dL Low 13.5 - 17.5 g/dL [facility] Interpretation and review of laboratory results Abnormal [facility] MCH (RBC) [Entitic mass] 27.9 pg 26 - 34 pg [facility] MCHC (RBC) [Mass/Vol] 32.9 g/dL 31 - 37 g/dL [facility] MCV (RBC) [Entitic vol] 84.8 fL 80 - 100 fL [facility] Nucleated RBC (Bld) [#/Vol] 0.00 10*3/uL [facility] Nucleated RBC/100 WBC (Bld) [Ratio] 0.0 % [facility] Platelet mean volume (Bld) [Entitic vol] 8.6 fL Low 9 - 15.5 fL [facility] Platelets (Bld) [#/Vol] 525 10*3/uL High [facility] RBC (Bld) [#/Vol] 4.34 10*6/uL Low [facility] ealth WBC (Bld) [#/Vol] 14.25 10*3/uL High [facility] POC Glucoseon 02-03-2019 Glucose [Mass/Vol] 117 mg/dL High 65 - 99 mg/dL [facility] Interpretation and review of laboratory results Abnormal [facility] Glucose [Mass/Vol] 111 mg/dL High 65 - 99 mg/dL [facility] Interpretation and review of laboratory results Abnormal [facility] VR Thoracentesis Lefton 01-13 1. Small left pleura l effusion 2. Successful ultrasound-guided left thoracentesis. Approximately 250 mL of blood-tinged fluid was removed from the left pleural space. A sample of fluid was placed in the custody of the patient's nurse for potential laboratory analysis to be ordered by the primary service. Workstation ID: [id number] [facility] EXAMINATION: ULTRASOUND-GUIDED LEFT THORACENTESIS HISTORY: Recent coronary artery bypass grafting. Left pleural effusion. MATERIAL DAMAGE APPRAISER(S): Gilmer Zelaya MD COMPARISON: Chest radiograph dated [...] 1% lidocaine. Under ultrasound guidance, a 5 [place] [employer] slip catheter and introducer needle were advanced [...] and the patient tolerated the procedure well. [facility] Interface, Rad In [facility] [employer] - 02/03/2019 10:12 PM EST EXAMINATION: ULTRASOUND-GUIDED LEFT THORACENTESIS HISTORY: Recent coronary artery bypass grafting. Left pleural effusion. MATERIAL DAMAGE APPRAISER(S): Gilmer Zelaya MD COMPARISON: Chest radiograph dated [...] 1% lidocaine. Under ultrasound guidance, a 5 [place] [employer] slip catheter and introducer needle were advanced [...] by the primary service. Workstation ID: [id number] [facility] XR Chest 1 Viewon 02-03-2019 No pneumothorax stat us post left thoracentesis. RPS/trw Workstation ID: [id number] [facility] EXAMINATION: XR CHES T PA/AP 02/03/2019 11:53 [...] small left pleural effusion and strandy atelectasis. [facility], Rad In [facility] - 02/03/2019 3:15 PM EST EXAMINATION: XR [...] post left thoracentesis. RPS/trw Workstation ID: [id number] [facility], Rad In [facility] - 02/03/2019 9:29 AM EST EXAMINATION: XR [...] 3. Mild cardiomegaly. RSR/hb Workstation ID: [id number] [facility] EXAMINATION: XR CHES T PA/AP 02/03/2019 5:07 [...] is similar. The right lung is clear. [facility] 1. Low lung volumes. 2. Left basal effusion with atelectasis and/or infiltrate similar. 3. Mild cardiomegaly. RSR/hb Workstation ID: [id number] [facility] CBCon 02-02-2019 Erythrocyte distribution width (RBC) [Entitic vol] 14.4 % 11.6 - 14.8 % [facility] Hematocrit (Bld) [Volume fraction] 34.8 % Low 41 - 53 % [facility] Hemoglobin (Bld) [Mass/Vol] 11.4 g/dL Low 13.5 - 17.5 g/dL [facility] Interpretation and review of laboratory results Abnormal [facility] MCH (RBC) [Entitic mass] 27.9 pg 26 - 34 pg [facility] MCHC (RBC) [Mass/Vol] 32.8 g/dL 31 - 37 g/dL [facility] MCV (RBC) [Entitic vol] 85.3 fL 80 - 100 fL [facility] Nucleated RBC (Bld) [#/Vol] 0.02 10*3/uL [facility] Nucleated RBC/100 WBC (Bld) [Ratio] 0.1 % [facility] Platelet mean volume (Bld) [Entitic vol] 8.9 fL Low 9 - 15.5 fL [facility] Platelets (Bld) [#/Vol] 555 10*3/uL [facility] RBC (Bld) [#/Vol] 4.08 10*6/uL Low [facility] WBC (Bld) [#/Vol] 14.43 10*3/uL [facility] CT PULMONARY ARTERIESon 01-13 1. Mrrk-bc-luvhwkqu effusion with mild atelectasis in the left lung base. Remaining lungs show hyperaeration with mild chronic changes. 2. No evidence for acute mediastinal process or pulmonary embolism, it should be noted that there was limited opacification of the pulmonary arterial tree. 3. No evidence for lymphadenopathy. 4. Chronic and postsurgical changes noted. Workstation ID: [id number] [facility] EXAMINATION: CT PULMONARY ARTERIES HISTORY: ORDERING SYSTEM PROVIDED HISTORY: PE suspected, low pretest prob; S/P CABG, increased dyspnea, TECHNOLOGIST PROVIDED HISTORY: Illness/Other Reason for exam: cp, recent open heart surgery Encounter Type: Initial Additional signs and symptoms: n/a ORDERING SYSTEM PROVIDED DIAGNOSIS CODES: COMPARISON: Two-view chest from February 02, [address] abdomen pelvis [...] good aeration. There is mild atelectasis and raep-ae-xattnsoy effusion in the left lung base. Slight chronic changes are noted off the hilar and infrahilar regions. No suspicious nodule is noted. Bone density is unremarkable. No bony lesions are noted throughout. No advanced degenerative changes are noted diffusely. No obvious bony lesions are noted. The subcutaneous tissues are unremarkable. [facility] Interface, Rad In [facility] [employer] - [...] good aeration. There is mild atelectasis and nrsd-lp-xiksubds effusion in the left lung base. Slight chronic changes are noted off the hilar and infrahilar regions. No suspicious nodule is noted. Bone density is unremarkable. No bony lesions are noted throughout. No advanced degenerative changes are noted diffusely. No obvious bony lesions are noted. The subcutaneous tissues are unremarkable. IMPRESSION: 1. Hhxa-dx-wxllnhlt effusion with mild atelectasis in the left lung base. Remaining lungs show hyperaeration with mild chronic changes. 2. No evidence for acute mediastinal process or pulmonary embolism, it should be noted that there was limited opacification of the pulmonary arterial tree. 3. No evidence for lymphadenopathy. 4. Chronic and postsurgical changes noted. Workstation ID: [id number] [facility] POC [facility] Alveolar-arterial oxygen Partial pressure difference 28.2 mm Hg [facility] Base excess Calc (Bld) [Moles/Vol] 3.6 mmol/L High [facility] Breath rate setting Ventilator synchronized intermittent mandatory 0 [facility] h CO2 (Bld) [Partial pressure] 38.6 mm[Hg] [facility] HCO3 (Bld) [Moles/Vol] 27.6 mmol/L High 22 - 26 mmol/L [facility] Hematocrit (BldA) [Volume fraction] 36.8 % Low 41 - 53 % [facility] Hemoglobin (Bld) [Mass/Vol] 12.0 g/dL Low 13.5 - 18 g/dL [facility] Inhaled oxygen concentration 21 % [facility] Interpretation and review of laboratory results Abnormal [facility] Oxygen (Bld) [Partial pressure] 72 mm[Hg] Low [facility] PEEP Respiratory system 0 [facility] pH (Bld) 7.46 [pH] High [facility] SaO2% (BldA) [Mass fraction] 95.1 % 92 - 99 % [facility] Specimen source Nom (Unsp spec) Radial, left [facility] Tidal volume setting Ventilator 0 [facility] POC Glucoseon 02-02-2019 Glucose [Mass/Vol] 93 mg/dL 65 - 99 mg/dL [facility] Interpretation and review of laboratory results Normal [facility] XR CHEST AP/PA AND LATon 1. Interval developm ent of left basilar consolidation with left pleural effusion. 2. Trace right pleural effusion. VKR/mjr Workstation ID: [id number] [facility] EXAMINATION: TWO-VIE W CHEST HISTORY: ORDERING SYSTEM [...] normal. No acute osseous lesions are seen. [facility] Interface, Rad In [facility] - [...] pleural effusion. 2. Trace right pleural effusion. VKR/mjr Workstation ID: [id number] [facility] XR CHEST AP/PA AND LATon Pulmonary venous congestion with small pleural effusions. Recent CABG with stable mediastinal contours. ST/hb Workstation ID: [id number] [facility] EXAMINATION: XR CHES T AP/PA AND LAT [...] median sternotomy and CABG. Stable mediastinal contours. [facility] Interface, Rad In [facility] [employer] - 01/31/2019 7:07 PM EST [...] stable mediastinal contours. ST/ Workstation ID: [id number] [facility] Basic Metabolic Panelon 01-12 Anion gap [Moles/Vol] 11 mmol/L 10 - 2 0 mmol/L [facility] Calcium [Mass/Vol] 8.6 mg/dL 8.4 - 10. 2 mg/dL [facility] Chloride [Moles/Vol] 105 mmol/L 98 - 10 8 mmol/L [facility] Creatinine [Mass/Vol] 1.08 mg/dL 0.5 - 1.3 mg/dL [facility] GFR/1.73 sq M.predicted CKD-EPI (S/P/Bld) [Vol rate/Area] 81 >=60 mL/min/1.73 m2 [facility] Glucose [Mass/Vol] 101 mg/dL High 65 - 99 mg/dL [facility] HCO3 [Moles/Vol] 26 mmol/L 21 - 32 mmol/L [facility] [facility] Interpretation and review of laboratory results Abnormal [facility] Potassium [Moles/Vol] 4.2 mmol/L 3.5 - 5.1 mmol/L [facility] Sodium [Moles/Vol] 138 mmol/L 135 - 145 mmol/L [facility] Urea nitrogen [Mass/Vol] 29 mg/dL High 8 - 25 mg/dL [facility] Urea nitrogen/Creatinine [Mass ratio] 26.9 mg/mg High [facility] The eGFR should be u sed for monitoring renal function only and not for medication dosing. [facility] CBCon 01-29-2019 Erythrocyte distribution width (RBC) [Entitic vol] 14.2 % 11.6 - 14.8 % [facility] Hematocrit (Bld) [Volume fraction] 33.7 % Low 41 - 53 % [facility] Hemoglobin (Bld) [Mass/Vol] 10.9 g/dL Low 13.5 - 17.5 g/dL [facility] Interpretation and review of laboratory results Abnormal [facility] MCH (RBC) [Entitic mass] 27.9 pg 26 - 34 pg [facility] MCHC (RBC) [Mass/Vol] 32.3 g/dL 31 - 37 g/dL [facility] MCV (RBC) [Entitic vol] 86.2 fL 80 - 100 fL [facility] Nucleated RBC (Bld) [#/Vol] 0.00 10*3/uL [facility] Nucleated RBC/100 WBC (Bld) [Ratio] 0.0 % [facility] Platelet mean volume (Bld) [Entitic vol] 9.7 fL 9 - 15.5 fL [facility] Platelets (Bld) [#/Vol] 277 10*3/uL [facility] RBC (Bld) [#/Vol] 3.91 10*6/uL Low [facility] WBC (Bld) [#/Vol] 9.70 10*3/uL [facility] ECG 12-LEADon 01-29-2019 Atrial Rate 84 BPM [facility] P [place] 51 degrees [facility] P-R Interval 168 ms [facility] Q-T Interval 344 ms [facility] QRS Duration 92 ms [facility] QTC Calculation (Bezet) 406 ms O [facility] R [place] 17 degrees [facility] T [place] 66 degrees [facility] Ventricular Rate 84 BPM [facility] th Normal sinus rhythm Anterolateral infarct , age undetermined Abnormal ECG Confirmed by Torie Au MD ([id number]) on 01/29/2019 1:02:22 PM [facility] Magnesium Levelon 01-29-2019 Interpretation and review of laboratory results Normal [facility] Magnesium [Mass/Vol] 2.3 mg/dL 1.6 - 2 .4 mg/dL [facility] POC Glucoseon 01-29-2019 Glucose [Mass/Vol] 102 mg/dL High 65 - 99 mg/dL [facility] Interpretation and review of laboratory results Abnormal [facility] Glucose [Mass/Vol] 104 mg/dL High 65 - 99 mg/dL [facility] Interpretation and review of laboratory results Abnormal [facility] TROPONINon 01-29-2019 Troponin I.cardiac [Mass/Vol] ng/mL <=45 ng/L [facility] Troponin I.cardiac [Mass/Vol] Normal [facility] XR Chest 1 Viewon 01-29-2019 Interval removal of the right internal jugular catheter. The cardiopulmonary structures are stable. 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 TECHNIQUE: AP upright portable chest. FINDINGS: The lungs are clear and well expanded. Hemidiaphragms are smooth. Heart size is normal. There are mediastinal surgical changes with sternal wires present. The right internal jugular catheter has been removed. front desk monitor leads are noted upon the chest wall. IMPRESSION: Interval removal of the right internal jugular catheter. The cardiopulmonary structures are stable. 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 TECHNIQUE: AP upright portable chest. FINDINGS: The lungs are clear and well expanded. Hemidiaphragms are smooth. Heart size is normal. There are mediastinal surgical changes with sternal wires present. The right internal jugular catheter has been removed. front desk monitor leads are noted upon the chest wall. [facility] Basic Metabolic Panelon - Anion gap [Moles/Vol] 9 mmol/L Low 10 - 2 0 mmol/L [facility] Calcium [Mass/Vol] 8.2 mg/dL Low 8.4 - 10. 2 mg/dL [facility] Chloride [Moles/Vol] 105 mmol/L 98 - 10 8 mmol/L [facility] Creatinine [Mass/Vol] 1.04 mg/dL 0.5 - 1.3 mg/dL [facility] GFR/1.73 sq M.predicted CKD-EPI (S/P/Bld) [Vol rate/Area] 85 >=60 mL/min/1.73 m2 [facility] Glucose [Mass/Vol] 105 mg/dL High 65 - 99 mg/dL [facility] HCO3 [Moles/Vol] 26 mmol/L 21 - 32 mmol/L [facility] Interpretation and review of laboratory results Abnormal [facility] Potassium [Moles/Vol] 4.1 mmol/L 3.5 - 5.1 mmol/L [facility] Sodium [Moles/Vol] 136 mmol/L 135 - 145 mmol/L [facility] Urea nitrogen [Mass/Vol] 31 mg/dL High 8 - 25 mg/dL [facility] Urea nitrogen/Creatinine [Mass ratio] 29.8 mg/mg High [facility] The eGFR should be u sed for monitoring renal function only and not for medication dosing. [facility] CBCon 01-28-2019 Erythrocyte distribution width (RBC) [Entitic vol] 14.2 % 11.6 - 14.8 % [facility] Hematocrit (Bld) [Volume fraction] 30.5 % Low 41 - 53 % [facility] Hemoglobin (Bld) [Mass/Vol] 10.1 g/dL Low 13.5 - 17.5 g/dL [facility] Interpretation and review of laboratory results Abnormal [facility] MCH (RBC) [Entitic mass] 28.2 pg 26 - 34 pg [facility] MCHC (RBC) [Mass/Vol] 33.1 g/dL 31 - 37 g/dL [facility] MCV (RBC) [Entitic vol] 85.2 fL 80 - 100 fL [facility] Nucleated RBC (Bld) [#/Vol] 0.00 10*3/uL [facility] Nucleated RBC/100 WBC (Bld) [Ratio] 0.0 % [facility] Platelet mean volume (Bld) [Entitic vol] 9.8 fL 9 - 15.5 fL [facility] Platelets (Bld) [#/Vol] 212 10*3/uL [facility] RBC (Bld) [#/Vol] 3.58 10*6/uL Low [facility] WBC (Bld) [#/Vol] 10.07 10*3/uL [facility] Magnesium Levelon 01-28-2019 Interpretation and review of laboratory results Normal [facility] Magnesium [Mass/Vol] 2.4 mg/dL 1.6 - 2 .4 mg/dL [facility] POC Glucoseon 01-28-2019 Glucose [Mass/Vol] 113 mg/dL High 65 - 99 mg/dL [facility] Interpretation and review of laboratory results Abnormal [facility] Glucose [Mass/Vol] 114 mg/dL High 65 - 99 mg/dL [facility] Interpretation and review of laboratory results Abnormal [facility] Glucose [Mass/Vol] 93 mg/dL 65 - 99 mg/dL [facility] Interpretation and review of laboratory results Normal [facility] Glucose [Mass/Vol] 110 mg/dL High 65 - 99 mg/dL [facility] Interpretation and review of laboratory results Abnormal [facility] Glucose [Mass/Vol] 115 mg/dL High 65 - 99 mg/dL [facility] Interpretation and review of laboratory results Abnormal [facility] XR Chest 1 Viewon 01-28-2019 Cardiomegaly. No pulmonary edema. Linear scarring or atelectasis at the left lung apex and left lung base, as before. [facility] Workstation ID: [id number] [facility] Interface, Rad In Fu ji Speechq - 01/28/2019 7:04 AM EST EXAMINATION: [...] without long-term current use of insulin ([facility]) I25.10 Coronary artery disease, angina presence unspecified, unspecified vessel or lesion type, unspecified whether [place] or transplanted heart COMPARISON: 01/27/2019 and 01/26/2019. [...] apex and left lung base, as before. [facility] Workstation ID: [id number] [facility] EXAMINATION: XR CHES T PA/AP HISTORY: ORDERING SYSTEM PROVIDED HISTORY: post open heart surgery, TECHNOLOGIST PROVIDED HISTORY: Illness/Other Reason for exam: S/P CABG Cancer History: u Surgery, RadiationHistory: yes Encounter Type: Subsequent/Follow-up Additional signs and symptoms: NA ORDERING SYSTEM PROVIDED DIAGNOSIS CODES: R07.89 Chest pain, atypical E11.9 Type 2 diabetes mellitus without complication, without long-term current use of insulin ([facility]) I25.10 Coronary artery disease, angina presence unspecified, unspecified vessel or lesion type, unspecified whether [place] or transplanted heart COMPARISON: 01/27/2019 and 01/26/2019. FINDINGS: Right IJ central venous catheter with tip projected over the mid SVC. Prior median sternotomy and CABG. Cardiomegaly. No pulmonary edema, pleural effusion or pneumothorax. Persistent linear atelectatic changes at the left lung apex and left lung base. Osseous structures are intact. [facility] AMYLASEon 01-27-2019 Amylase [Catalytic activity/Vol] 28 U/L 25 - 115 U/L [facility] Interpretation and review of laboratory results Normal [facility] Basic Metabolic Panelon 01-12 Anion gap [Moles/Vol] 16 mmol/L 10 - 2 0 mmol/L [facility] Calcium [Mass/Vol] 8.6 mg/dL 8.4 - 10. 2 mg/dL [facility] Chloride [Moles/Vol] 97 mmol/L Low 98 - 10 8 mmol/L [facility] Creatinine [Mass/Vol] 3.10 mg/dL High 0.5 - 1.3 mg/dL [facility] GFR/1.73 sq M.predicted CKD-EPI (S/P/Bld) [Vol rate/Area] 23 Low >=60 mL/min/1.73 m2 [facility] Glucose [Mass/Vol] 123 mg/dL High 65 - 99 mg/dL [facility] HCO3 [Moles/Vol] 23 mmol/L 21 - 32 mmol/L [facility] Interpretation and review of laboratory results Abnormal [facility] Potassium [Moles/Vol] 4.5 mmol/L 3.5 - 5.1 mmol/L [facility] Sodium [Moles/Vol] 131 mmol/L Low 135 - 145 mmol/L [facility] Urea nitrogen [Mass/Vol] 43 mg/dL High 8 - 25 mg/dL [facility] Urea nitrogen/Creatinine [Mass ratio] 13.9 mg/mg [facility] The eGFR should be u sed for monitoring renal function only and not for medication dosing. [facility] CBCon 01-27-2019 Erythrocyte distribution width (RBC) [Entitic vol] 14.0 % 11.6 - 14.8 % [facility] Hematocrit (Bld) [Volume fraction] 33.9 % Low 41 - 53 % [facility] Hemoglobin (Bld) [Mass/Vol] 11.2 g/dL Low 13.5 - 17.5 g/dL [facility] Interpretation and review of laboratory results Abnormal [facility] MCH (RBC) [Entitic mass] 28.3 pg 26 - 34 pg [facility] MCHC (RBC) [Mass/Vol] 33.0 g/dL 31 - 37 g/dL [facility] MCV (RBC) [Entitic vol] 85.6 fL 80 - 100 fL [facility] Nucleated RBC (Bld) [#/Vol] 0.00 10*3/uL [facility] Nucleated RBC/100 WBC (Bld) [Ratio] 0.0 % [facility] Platelet mean volume (Bld) [Entitic vol] 10.2 fL 9 - 15.5 fL [facility] Platelets (Bld) [#/Vol] 194 10*3/uL [facility] RBC (Bld) [#/Vol] 3.96 10*6/uL Low [facility] WBC (Bld) [#/Vol] 16.03 10*3/uL [facility] ECG 12-LEADon 01-27-2019 Atrial Rate 105 BPM [facility] P [place] 50 degrees [facility] P-R Interval 144 ms [facility] Q-T Interval 314 ms [facility] QRS Duration 86 ms [facility] QTC Calculation (Bezet) 415 ms [facility] R [place] 14 degrees [facility] T [place] 52 degrees [facility] Ventricular Rate 105 BPM [facility] th Sinus tachycardia Possible Left atrial enlargement Low voltage QRS Cannot rule out Anteroseptal infarct , age undetermined Lateral injury pattern ACUTE [place] / STEMI Abnormal ECG Confirmed by Torie Au MD ([id number]) on 01/27/2019 2:33:32 PM [facility] ECHOCARDIOGRAM LIMITED WITH CONTRASTon 01-27-2019 Interface, Rad In [facility] Echopacs - 01/27/2019 8:22 AM [place] [id number] ------ ----- ECHOCARDIOGRAPHY REPORT - [facility] ------ ----- Name: FERNANDO [place] Age: 48 years Date: 01/27/2019 Hospital #: [id number] : 1970 Room: [address] [place] [address] #: [id number] Sex: M Tech: Giovana Hale Ordering Physician: [id number] KRISTIN MACHUCA Height: 66.00 in Sys BP: 92 WALKER cc: , Weight: 250.00 Mira BP: 48 Reading Physician: [id number] TORIE TERRELL Rhythm: Normal sinus ROE/ rhythm Electronically Signed [id number] TORIE TERRELL BSA: 2.20 m by: ROE on: 01/27/2019 Reason for Study: Re-assess LV [...] 75 Female) LA Index (BP) TAPSE LAESV [employer]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 Definity (if used): 2ml Final IMPRESSION: Limited echo for repeat assessment of LV function [address] [address] [place] [address] ECHOCARDIOGRAPHY REPORT - [facility] Name: FERNANDO [place] Age: 48 years Date: 01/27/2019 [facility] #: [id number] : 1970 Room: [address] [place] [address] #: [id number] Sex: M Tech: Giovana E Alexia Ordering Physician: [id number] KRISTIN MACHUCA Height: 66.00 in Sys BP: 92 WALKER cc: , Weight: 250.00 Mira BP: 48 Reading Physician: [id number] TORIE TERRELL Rhythm: Normal sinus AU/ rhythm Electronically Signed [id number] TORIE TERRELL BSA: 2.20 m by: ROE on: 01/27/2019 Reason for Study: Re-assess LV [...] 75 Female) LA Index (BP) TAPSE LAESV [employer]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 Definity (if used): 2ml Final [facility] Limited echo for rep eat assessment of LV function [facility] Hepatic Function Panelon Albumin [Mass/Vol] 2.6 g/dL Low 3.2 - 5.2 g/dL [facility] ALP [Catalytic activity/Vol] 41 U/L 40 - 150 U/L [facility] ALT [Catalytic activity/Vol] 35 U/L 14 - 65 U/L [facility] AST [Catalytic activity/Vol] 39 U/L 0 - 45 U/L [facility] Bilirubin [Mass/Vol] 0.8 mg/dL 0 - 1.3 mg/dL [facility] Bilirubin.conjugated [Mass/Vol] 0.2 mg/dL 0 - 0.4 mg/dL [facility] Protein [Mass/Vol] 6.1 g/dL 6 - 8 g/dL [facility] alth Lipaseon 01-27-2019 Lipase [Catalytic activity/Vol] 57 U/L Low 73 - 393 U/L [facility] Magnesium Levelon 01-27-2019 Interpretation and review of laboratory results Normal [facility] Magnesium [Mass/Vol] 2.4 mg/dL 1.6 - 2 .4 mg/dL [facility] Otheron 01-27-2019 Interpretation and review of laboratory results Abnormal [facility] POC Glucoseon 01-27-2019 Glucose [Mass/Vol] 113 mg/dL High 65 - 99 mg/dL [facility] Interpretation and review of laboratory results Abnormal [facility] Glucose [Mass/Vol] 111 mg/dL High 65 - 99 mg/dL [facility] Interpretation and review of laboratory results Abnormal [facility] Glucose [Mass/Vol] 117 mg/dL High 65 - 99 mg/dL [facility] Interpretation and review of laboratory results Abnormal [facility] TROPONINon 01-27-2019 Troponin I.cardiac [Mass/Vol] Normal [facility] Troponin I.cardiac [Mass/Vol] 28 ng/L <=45 [facility] XR ABDOMEN 1 VIEWon 01-28-20 19 Interface, [...] unspecified vessel or lesion type, unspecified whether [place] or transplanted heart COMPARISON: CT abdomen and pelvis 05/01/2015. FINDINGS: Two images were utilized to encompass the abdomen and pelvis. There is mild gaseous distention of the colon with gas extending into the rectum. No definite small bowel dilatation. No large collection of free intraperitoneal air. Postsurgical findings median sternotomy. IMPRESSION: Nonobstructive bowel gas pattern with mild colonic distention. [place] Workstation ID: [id number] [facility] EXAMINATION: XR ABDO MEN /KUB/FLAT PLATE/1 VIEW [...] unspecified vessel or lesion type, unspecified whether [place] or transplanted heart COMPARISON: CT abdomen and pelvis 05/01/2015. FINDINGS: Two images were utilized to encompass the abdomen and pelvis. There is mild gaseous distention of the colon with gas extending into the rectum. No definite small bowel dilatation. No large collection of free intraperitoneal air. Postsurgical findings median sternotomy. [facility] Nonobstructive bowel gas pattern with mild colonic distention. [place] Workstation ID: [id number] [facility] XR Chest 1 Viewon 01-27-2019 Status post sternoto my. Mild residual left apical and left base atelectatic findings. [facility]ls Workstation ID: [id number] [facility] Interface, Rad In Fu ji Speechq - [...] left apical and left base atelectatic findings. [employer] Workstation ID: [id number] [facility] EXAMINATION: XR CHES T PA/AP HISTORY: post [...] No major consolidation or edema is seen. [facility] Basic Metabolic Panelon 01-12 Anion gap [Moles/Vol] 13 mmol/L 10 - 2 0 mmol/L [facility] Calcium [Mass/Vol] 8.3 mg/dL Low 8.4 - 10. 2 mg/dL [facility] Chloride [Moles/Vol] 102 mmol/L 98 - 10 8 mmol/L [facility] Creatinine [Mass/Vol] 1.03 mg/dL 0.5 - 1.3 mg/dL [facility] GFR/1.73 sq M.predicted CKD-EPI (S/P/Bld) [Vol rate/Area] 86 >=60 mL/min/1.73 m2 [facility] Glucose [Mass/Vol] 116 mg/dL High 65 - 99 mg/dL [facility] HCO3 [Moles/Vol] 24 mmol/L 21 - 32 mmol/L [facility] Interpretation and review of laboratory results Abnormal [facility] Potassium [Moles/Vol] 4.3 mmol/L 3.5 - 5.1 mmol/L [facility] Sodium [Moles/Vol] 135 mmol/L 135 - 145 mmol/L [facility] Urea nitrogen [Mass/Vol] 21 mg/dL 8 - 25 mg/dL [facility] Urea nitrogen/Creatinine [Mass ratio] 20.4 mg/mg High [facility] The eGFR should be u sed for monitoring renal function only and not for medication dosing. [facility] CBCon 01-26-2019 Erythrocyte distribution width (RBC) [Entitic vol] 14.1 % 11.6 - 14.8 % [facility] Hematocrit (Bld) [Volume fraction] 39.4 % Low 41 - 53 % [facility] Hemoglobin (Bld) [Mass/Vol] 13.0 g/dL Low 13.5 - 17.5 g/dL [facility] Interpretation and review of laboratory results Abnormal [facility] MCH (RBC) [Entitic mass] 27.8 pg 26 - 34 pg [facility] MCHC (RBC) [Mass/Vol] 33.0 g/dL 31 - 37 g/dL [facility] MCV (RBC) [Entitic vol] 84.4 fL 80 - 100 fL [facility] Nucleated RBC (Bld) [#/Vol] 0.00 10*3/uL [facility] Nucleated RBC/100 WBC (Bld) [Ratio] 0.0 % [facility] Platelet mean volume (Bld) [Entitic vol] 10.2 fL 9 - 15.5 fL [facility] Platelets (Bld) [#/Vol] 183 10*3/uL [facility] RBC (Bld) [#/Vol] 4.67 10*6/uL [facility] eah WBC (Bld) [#/Vol] 14.20 10*3/uL [facility] Magnesium Levelon 01-26-2019 Interpretation and review of laboratory results Normal [facility] Magnesium [Mass/Vol] 2.2 mg/dL 1.6 - 2 .4 mg/dL [facility] POC Glucoseon 01-26-2019 Glucose [Mass/Vol] 128 mg/dL High 65 - 99 mg/dL [facility] Interpretation and review of laboratory results Abnormal [facility] Glucose [Mass/Vol] 112 mg/dL High 65 - 99 mg/dL [facility] Interpretation and review of laboratory results Abnormal [facility] Glucose [Mass/Vol] 111 mg/dL High 65 - 99 mg/dL [facility] Interpretation and review of laboratory results Abnormal [facility] Glucose [Mass/Vol] 117 mg/dL High 65 - 99 mg/dL [facility] Interpretation and review of laboratory results Abnormal [facility] Glucose [Mass/Vol] 110 mg/dL High 65 - 99 mg/dL [facility] Interpretation and review of laboratory results Abnormal [facility] Urine Aerobic Cultureon 01-12 Bacteria identified Aer cx Nom (Unsp spec) No Growth (<1,000 CFU/mL) [facility] XR Chest 1 Viewon 01-26-2019 Interface, Rad In Luis Fernando yi Speechq - 01/26/2019 6:30 PM EST EXAMINATION: [...] unspecified vessel or lesion type, unspecified whether [place] or transplanted heart COMPARISON: 01/26/2019 FINDINGS: One-view [...] pulmonary venous congestion. ST/hb Workstation ID: [id number] [facility] EXAMINATION: XR CHES T PA/AP HISTORY: ORDERING [...] unspecified vessel or lesion type, unspecified whether [place] or transplanted heart COMPARISON: 01/26/2019 FINDINGS: One-view chest x-ray. Left basilar chest tube has been removed. Stable position of right central venous catheter. Low lung volumes. No pneumothorax. Mild pulmonary venous congestion. No pleural effusions. Left upper lobe subsegmental linear atelectasis. Prominent heart size. Postoperative changes of median sternotomy and CABG. Stable mediastinal contours. [facility] Interval left basila r chest tube removal. No pneumothorax. Recent CABG. Stable mediastinal contours. Mild pulmonary venous congestion. ST/hb Workstation ID: [id number] [facility] Interval removal of right jugular [place] catheter. Sheath remains in place. No pneumothorax. Mild pulmonary venous congestion. Recent CABG postoperative changes. ST/dnb Workstation ID: [id number] [facility] Interface, Rad In Luis Fernando yi Speechq - 01/26/2019 6:30 PM EST EXAMINATION: [...] unspecified vessel or lesion type, unspecified whether [place] or transplanted heart COMPARISON: 01/25/2019. FINDINGS: One-view chest x-ray. Interval removal of right jugular [place] catheter. Right jugular sheath remains in place and, tip projects over the superior vena cava. Stable position of left basilar chest tube. Low lung volumes. No pneumothorax. Mild pulmonary venous congestion. Left upper lobe subsegmental linear atelectasis. No significant pleural effusions. Cardiomegaly. Postoperative changes of median sternotomy and CABG. Improved prominence of the mediastinum. IMPRESSION: Interval removal of right jugular [place] catheter. Sheath remains in place. No pneumothorax. Mild pulmonary venous congestion. Recent CABG postoperative changes. ST/dnb Workstation ID: [id number] [facility] EXAMINATION: XR CHES T PA/AP HISTORY: ORDERING [...] unspecified vessel or lesion type, unspecified whether [place] or transplanted heart COMPARISON: 01/25/2019. FINDINGS: One-view chest x-ray. Interval removal of right jugular [place] catheter. Right jugular sheath remains in place and, tip projects over the superior vena cava. Stable position of left basilar chest tube. Low lung volumes. No pneumothorax. Mild pulmonary venous congestion. Left upper lobe subsegmental linear atelectasis. No significant pleural effusions. Cardiomegaly. Postoperative changes of median sternotomy and CABG. Improved prominence of the mediastinum. [facility] Basic Metabolic Panelon 01-12 Anion gap [Moles/Vol] 13 mmol/L 10 - 2 0 mmol/L [facility] Calcium [Mass/Vol] 8.2 mg/dL Low 8.4 - 10. 2 mg/dL [facility] Chloride [Moles/Vol] 100 mmol/L 98 - 10 8 mmol/L [facility] Creatinine [Mass/Vol] 1.20 mg/dL 0.5 - 1.3 mg/dL [facility] GFR/1.73 sq M.predicted CKD-EPI (S/P/Bld) [Vol rate/Area] 72 >=60 mL/min/1.73 m2 [facility] Glucose [Mass/Vol] 141 mg/dL High 65 - 99 mg/dL [facility] HCO3 [Moles/Vol] 24 mmol/L 21 - 32 mmol/L [facility] Interpretation and review of laboratory results Abnormal [facility] Potassium [Moles/Vol] 4.5 mmol/L 3.5 - 5.1 mmol/L [facility] Sodium [Moles/Vol] 132 mmol/L Low 135 - 145 mmol/L [facility] Urea nitrogen [Mass/Vol] 22 mg/dL 8 - 25 mg/dL [facility] Urea nitrogen/Creatinine [Mass ratio] 18.3 mg/mg [facility] The eGFR should be u sed for monitoring renal function only and not for medication dosing. [facility] CBCon 01-25-2019 Erythrocyte distribution width (RBC) [Entitic vol] 14.0 % 11.6 - 14.8 % [facility] Hematocrit (Bld) [Volume fraction] 38.5 % Low 41 - 53 % [facility] Hemoglobin (Bld) [Mass/Vol] 12.9 g/dL Low 13.5 - 17.5 g/dL [facility] Interpretation and review of laboratory results Abnormal [facility] MCH (RBC) [Entitic mass] 28.0 pg 26 - 34 pg [facility] MCHC (RBC) [Mass/Vol] 33.5 g/dL 31 - 37 g/dL [facility] MCV (RBC) [Entitic vol] 83.5 fL 80 - 100 fL [facility] Nucleated RBC (Bld) [#/Vol] 0.00 10*3/uL [facility] Nucleated RBC/100 WBC (Bld) [Ratio] 0.0 % [facility] Platelet mean volume (Bld) [Entitic vol] 9.9 fL 9 - 15.5 fL [facility] Platelets (Bld) [#/Vol] 211 10*3/uL [facility] RBC (Bld) [#/Vol] 4.61 10*6/uL [facility] ealth WBC (Bld) [#/Vol] 15.83 10*3/uL [facility] Magnesium Levelon 01-25-2019 Interpretation and review of laboratory results Normal [facility] Magnesium [Mass/Vol] 2.0 mg/dL 1.6 - 2 .4 mg/dL [facility] POC ARTERIAL BLOOD GAS PANEL -Formerly [facility], 1928–1983 01-25-2019 Alveolar-arterial oxygen Partial pressure difference 41.2 mm Hg [facility] Base excess Calc (Bld) [Moles/Vol] 1.0 mmol/L [facility] Breath rate setting Ventilator synchronized intermittent mandatory 0 [facility] CO2 (Bld) [Partial pressure] 36.3 mm[Hg] [facility] HCO3 (Bld) [Moles/Vol] 24.9 mmol/L 22 - 26 mmol/L [facility] Hematocrit (BldA) [Volume fraction] 44.2 % 41 - 53 % [facility] Hemoglobin (Bld) [Mass/Vol] 14.4 g/dL 13.5 - 18 g/dL [facility] Inhaled oxygen concentration 21 % [facility] Interpretation and review of laboratory results Abnormal [facility] Oxygen (Bld) [Partial pressure] 58 mm[Hg] Low [facility] pH (Bld) 7.44 [pH] [facility] Result Notification pt on room air [facility] SaO2% (BldA) [Mass fraction] 91.2 % Low 92 - 99 % [facility] Tidal volume setting Ventilator 0 [facility] POC Glucoseon 01-25-2019 Glucose [Mass/Vol] 125 mg/dL High 65 - 99 mg/dL [facility] Interpretation and review of laboratory results Abnormal [facility] Glucose [Mass/Vol] 109 mg/dL High 65 - 99 mg/dL [facility] Interpretation and review of laboratory results Abnormal [facility] Glucose [Mass/Vol] 129 mg/dL High 65 - 99 mg/dL [facility] Interpretation and review of laboratory results Abnormal [facility] Glucose [Mass/Vol] 119 mg/dL High 65 - 99 mg/dL [facility] Interpretation and review of laboratory results Abnormal [facility] Glucose [Mass/Vol] 117 mg/dL High 65 - 99 mg/dL [facility] Interpretation and review of laboratory results Abnormal [facility] Glucose [Mass/Vol] 127 mg/dL High 65 - 99 mg/dL [facility] Interpretation and review of laboratory results Abnormal [facility] Glucose [Mass/Vol] 132 mg/dL High 65 - 99 mg/dL [facility] Interpretation and review of laboratory results Abnormal [facility] Glucose [Mass/Vol] 140 mg/dL High 65 - 99 mg/dL [facility] Interpretation and review of laboratory results Abnormal [facility] Glucose [Mass/Vol] 129 mg/dL High 65 - 99 mg/dL [facility] Interpretation and review of laboratory results Abnormal [facility] XR Chest 1 Viewon 01-25-2019 EXAMINATION: XR [...] without long-term current use of insulin ([facility]) I25.10 Coronary artery disease, angina presence unspecified, unspecified vessel or lesion type, unspecified whether [place] or transplanted heart COMPARISON: 01/24/2019 FINDINGS: Endotracheal tube and NG tube have been removed. [place] catheter tip is in the right main pulmonary artery. Heart is mildly enlarged with a left ventricular contour. Vascularity is unremarkable. Right lung is unremarkable. There is been slight improvement in atelectasis in the left upper lobe. There is been interval development of a small amount of atelectasis versus early infiltrate in the left lung base. No pneumothorax is identified. [facility] Interface, Rad In Fu ji Speechq - [...] without long-term current use of insulin ([facility]) I25.10 Coronary artery disease, angina presence unspecified, unspecified vessel or lesion type, unspecified whether [place] or transplanted heart COMPARISON: 01/24/2019 FINDINGS: Endotracheal tube and NG tube have been removed. [place] catheter tip is in the right main [...] and endotracheal tube have been removed. 2. [place] catheter tip is in the right main pulmonary artery. 3. Improvement in the atelectasis in the left upper lobe. 4. Interval development of atelectasis versus early infiltrate in the left lung base. Workstation ID: [id number] [facility] 1. NG tube and endotracheal tube have been removed. 2. [place] catheter tip is in the right main pulmonary artery. 3. Improvement in the atelectasis in the left upper lobe. 4. Interval development of atelectasis versus early infiltrate in the left lung base. Workstation ID: [id number] [facility] APTTon 01-24-2019 aPTT Coag (Bld) [Time] 28 s [facility] Therapeutic range fo r APTT's is 68 - 104 seconds [facility] aPTT Coag (Bld) [Time] 27 s [facility] Therapeutic range fo r APTT's is 68 - 104 seconds [facility] aPTT Coag (Bld) [Time] 59 s High [facility] Interpretation and review of laboratory results Abnormal [facility] Therapeutic range fo r APTT's is 68 - 104 seconds [facility] Basic Metabolic Panelon 01-12 Anion gap [Moles/Vol] 11 mmol/L 10 - 2 0 mmol/L [facility] Calcium [Mass/Vol] 8.6 mg/dL 8.4 - 10. 2 mg/dL [facility] Chloride [Moles/Vol] 100 mmol/L 98 - 10 8 mmol/L [facility] Creatinine [Mass/Vol] 1.25 mg/dL 0.5 - 1.3 mg/dL [facility] GFR/1.73 sq M.predicted CKD-EPI (S/P/Bld) [Vol rate/Area] 68 >=60 mL/min/1.73 m2 [facility] Glucose [Mass/Vol] 122 mg/dL High 65 - 99 mg/dL [facility] HCO3 [Moles/Vol] 25 mmol/L 21 - 32 mmol/L [facility] Interpretation and review of laboratory results Abnormal [facility] Potassium [Moles/Vol] 5.0 mmol/L 3.5 - 5.1 mmol/L [facility] Sodium [Moles/Vol] 131 mmol/L Low 135 - 145 mmol/L [facility] Urea nitrogen [Mass/Vol] 30 mg/dL High 8 - 25 mg/dL [facility] Urea nitrogen/Creatinine [Mass ratio] 24.0 mg/mg High [facility] The eGFR should be u sed for monitoring renal function only and not for medication dosing. [facility] Anion gap [Moles/Vol] 14 mmol/L 10 - 2 0 mmol/L [facility] Calcium [Mass/Vol] 8.2 mg/dL Low 8.4 - 10. 2 mg/dL [facility] Chloride [Moles/Vol] 100 mmol/L 98 - 10 8 mmol/L [facility] Creatinine [Mass/Vol] 1.31 mg/dL High 0.5 - 1.3 mg/dL [facility] GFR/1.73 sq M.predicted CKD-EPI (S/P/Bld) [Vol rate/Area] 64 >=60 mL/min/1.73 m2 [facility] Glucose [Mass/Vol] 130 mg/dL High 65 - 99 mg/dL [facility] HCO3 [Moles/Vol] 24 mmol/L 21 - 32 mmol/L [facility] Interpretation and review of laboratory results Abnormal [facility] Potassium [Moles/Vol] 3.7 mmol/L 3.5 - 5.1 mmol/L [facility] Sodium [Moles/Vol] 134 mmol/L Low 135 - 145 mmol/L [facility] Urea nitrogen [Mass/Vol] 26 mg/dL High 8 - 25 mg/dL [facility] Urea nitrogen/Creatinine [Mass ratio] 19.8 mg/mg [facility] The eGFR should be u sed for monitoring renal function only and not for medication dosing. [facility] Anion gap [Moles/Vol] 13 mmol/L 10 - 2 0 mmol/L [facility] Calcium [Mass/Vol] 9.0 mg/dL 8.4 - 10. 2 mg/dL [facility] Chloride [Moles/Vol] 98 mmol/L 98 - 10 8 mmol/L [facility] Creatinine [Mass/Vol] 1.19 mg/dL 0.5 - 1.3 mg/dL [facility] GFR/1.73 sq M.predicted CKD-EPI (S/P/Bld) [Vol rate/Area] 72 >=60 mL/min/1.73 m2 [facility] Glucose [Mass/Vol] 148 mg/dL High 65 - 99 mg/dL [facility] HCO3 [Moles/Vol] 27 mmol/L 21 - 32 mmol/L [facility] Interpretation and review of laboratory results Abnormal [facility] Potassium [Moles/Vol] 3.6 mmol/L 3.5 - 5.1 mmol/L [facility] Sodium [Moles/Vol] 134 mmol/L Low 135 - 145 mmol/L [facility] Urea nitrogen [Mass/Vol] 26 mg/dL High 8 - 25 mg/dL [facility] Urea nitrogen/Creatinine [Mass ratio] 21.8 mg/mg High [facility] The eGFR should be u sed for monitoring renal function only and not for medication dosing. [facility] CBCon 01-24-2019 Erythrocyte distribution width (RBC) [Entitic vol] 13.7 % 11.6 - 14.8 % [facility] Hematocrit (Bld) [Volume fraction] 36.8 % Low 41 - 53 % [facility] Hemoglobin (Bld) [Mass/Vol] 12.4 g/dL Low 13.5 - 17.5 g/dL [facility] Interpretation and review of laboratory results Abnormal [facility] MCH (RBC) [Entitic mass] 27.9 pg 26 - 34 pg [facility] MCHC (RBC) [Mass/Vol] 33.7 g/dL 31 - 37 g/dL [facility] MCV (RBC) [Entitic vol] 82.9 fL 80 - 100 fL [facility] Nucleated RBC (Bld) [#/Vol] 0.00 10*3/uL [facility] Nucleated RBC/100 WBC (Bld) [Ratio] 0.0 % [facility] Platelet mean volume (Bld) [Entitic vol] 10.1 fL 9 - 15.5 fL [facility] Platelets (Bld) [#/Vol] 203 10*3/uL [facility] RBC (Bld) [#/Vol] 4.44 10*6/uL Low [facility] WBC (Bld) [#/Vol] 12.07 10*3/uL [facility] CBC WITH AUTO DIFFERENTIALon 01-24-2019 Basophils (Bld) [#/Vol] 0.05 10*3/uL [facility] Basophils/100 WBC (Bld) 0.3 % [facility] Eosinophils (Bld) [#/Vol] 0.11 10*3/uL [facility] Eosinophils/100 WBC (Bld) 0.7 % [facility] Erythrocyte distribution width (RBC) [Entitic vol] 13.9 % 11.6 - 14.8 % [facility] Hematocrit (Bld) [Volume fraction] 37.5 % Low 41 - 53 % [facility] Hemoglobin (Bld) [Mass/Vol] 12.5 g/dL Low 13.5 - 17.5 g/dL [facility] Immature granulocytes (Bld) [#/Vol] 0.16 10*3/uL [facility] Immature granulocytes/100 WBC (Bld) 1.00 % [facility] Comment on above: The IG parameter is the percentage of metamyelocytes, myelocytes, and promyelocytes. Interpretation and review of laboratory results Abnormal [facility] Lymphocytes (Bld) [#/Vol] 1.58 10*3/uL [facility] Lymphocytes/100 WBC (Bld) 9.7 % [facility] MCH (RBC) [Entitic mass] 28.0 pg 26 - 34 pg [facility] MCHC (RBC) [Mass/Vol] 33.3 g/dL 31 - 37 g/dL [facility] MCV (RBC) [Entitic vol] 84.1 fL 80 - 100 fL [facility] Monocytes (Bld) [#/Vol] 1.47 10*3/uL High [facility] Monocytes/100 WBC (Bld) 9.1 % [facility] Neutrophils (Bld) [#/Vol] 12.85 10*3/uL High [facility] Neutrophils/100 WBC (Bld) 79.2 % [facility] Nucleated RBC (Bld) [#/Vol] 0.00 10*3/uL [facility] Nucleated RBC/100 WBC (Bld) [Ratio] 0.0 % [facility] Platelet mean volume (Bld) [Entitic vol] 10.1 fL 9 - 15.5 fL [facility] Platelets (Bld) [#/Vol] 227 10*3/uL [facility] RBC (Bld) [#/Vol] 4.46 10*6/uL Low [facility] WBC (Bld) [#/Vol] 16.22 10*3/uL [facility] Basophils (Bld) [#/Vol] 0.07 10*3/uL [facility] Basophils/100 WBC (Bld) 0.5 % [facility] Eosinophils (Bld) [#/Vol] 0.61 10*3/uL High [facility] Eosinophils/100 WBC (Bld) 4.0 % [facility] Erythrocyte distribution width (RBC) [Entitic vol] 13.8 % 11.6 - 14.8 % [facility] Hematocrit (Bld) [Volume fraction] 36.5 % Low 41 - 53 % [facility] Hemoglobin (Bld) [Mass/Vol] 12.2 g/dL Low 13.5 - 17.5 g/dL [facility] Immature granulocytes (Bld) [#/Vol] 0.22 10*3/uL [facility] Immature granulocytes/100 WBC (Bld) 1.40 % [facility] Comment on above: The IG parameter is the percentage of metamyelocytes, myelocytes, and promyelocytes. Interpretation and review of laboratory results Abnormal [facility] Lymphocytes (Bld) [#/Vol] 2.53 10*3/uL [facility] Lymphocytes/100 WBC (Bld) 16.6 % [facility] MCH (RBC) [Entitic mass] 27.9 pg 26 - 34 pg [facility] MCHC (RBC) [Mass/Vol] 33.4 g/dL 31 - 37 g/dL [facility] MCV (RBC) [Entitic vol] 83.3 fL 80 - 100 fL [facility] Monocytes (Bld) [#/Vol] 1.19 10*3/uL High [facility] Monocytes/100 WBC (Bld) 7.8 % [facility] Neutrophils (Bld) [#/Vol] 10.66 10*3/uL High [facility] Neutrophils/100 WBC (Bld) 69.7 % [facility] Nucleated RBC (Bld) [#/Vol] 0.00 10*3/uL [facility] Nucleated RBC/100 WBC (Bld) [Ratio] 0.0 % [facility] Platelet mean volume (Bld) [Entitic vol] 10.1 fL 9 - 15.5 fL [facility] Platelets (Bld) [#/Vol] 201 10*3/uL [facility] RBC (Bld) [#/Vol] 4.38 10*6/uL Low [facility] WBC (Bld) [#/Vol] 15.28 10*3/uL [facility] Basophils (Bld) [#/Vol] 0.06 10*3/uL [facility] Basophils/100 WBC (Bld) 0.5 % [facility] Eosinophils (Bld) [#/Vol] 0.74 10*3/uL High [facility] Eosinophils/100 WBC (Bld) 6.8 % [facility] Erythrocyte distribution width (RBC) [Entitic vol] 13.8 % 11.6 - 14.8 % [facility] Hematocrit (Bld) [Volume fraction] 42.3 % 41 - 53 % [facility] Hemoglobin (Bld) [Mass/Vol] 14.0 g/dL 13.5 - 17.5 g/dL [facility] Immature granulocytes (Bld) [#/Vol] 0.12 10*3/uL [facility] Immature granulocytes/100 WBC (Bld) 1.10 % [facility] Comment on above: The IG parameter is the percentage of metamyelocytes, myelocytes, and promyelocytes. Interpretation and review of laboratory results Abnormal [facility] Lymphocytes (Bld) [#/Vol] 3.01 10*3/uL [facility] Lymphocytes/100 WBC (Bld) 27.6 % [facility] MCH (RBC) [Entitic mass] 27.7 pg 26 - 34 pg [facility] MCHC (RBC) [Mass/Vol] 33.1 g/dL 31 - 37 g/dL [facility] MCV (RBC) [Entitic vol] 83.6 fL 80 - 100 fL [facility] Monocytes (Bld) [#/Vol] 0.95 10*3/uL High [facility] Monocytes/100 WBC (Bld) 8.7 % [facility] Neutrophils (Bld) [#/Vol] 6.04 10*3/uL [facility] Neutrophils/100 WBC (Bld) 55.3 % [facility] Nucleated RBC (Bld) [#/Vol] 0.00 10*3/uL [facility] Nucleated RBC/100 WBC (Bld) [Ratio] 0.0 % [facility] Platelet mean volume (Bld) [Entitic vol] 10.1 fL 9 - 15.5 fL [facility] Platelets (Bld) [#/Vol] 230 10*3/uL [facility] RBC (Bld) [#/Vol] 5.06 10*6/uL [facility] ealt WBC (Bld) [#/Vol] 10.92 10*3/uL [facility] Calcium, Ionizedon 9 Calcium.ionized [Mass/Vol] 4.6 mg/dL 4.5 - 5.3 mg/dL [facility] Interpretation and review of laboratory results Normal [facility] Calcium.ionized [Mass/Vol] 4.5 mg/dL 4.5 - 5.3 mg/dL [facility] Interpretation and review of laboratory results Normal [facility] Fibrinogenon 01-24-2019 Fibrinogen Coag (PPP) [Mass/Vol] 309 mg/dL 224 - 483 mg/dL [facility] Fibrinogen Coag (PPP) [Mass/Vol] 316 mg/dL 224 - 483 mg/dL [facility] Hematologyon 01-24-2019 pH (Bld) 7.44 [pH] [facility] ABO and Rh group Nom (Bld) O Neg [facility] ABO and Rh group Nom (Bld) 9500 [facility] Magnesium Levelon 01-24-2019 Interpretation and review of laboratory results Normal [facility] Magnesium [Mass/Vol] 2.0 mg/dL 1.6 - 2 .4 mg/dL [facility] Interpretation and review of laboratory results Normal [facility] Magnesium [Mass/Vol] 2.0 mg/dL 1.6 - 2 .4 mg/dL [facility] Metabolic Panelon 01-24-2019 Potassium [Moles/Vol] 3.8 mmol/L 3.5 - 5.1 mmol/L [facility] Otheron 01-24-2019 Interpretation and review of laboratory results Abnormal [facility] Interpretation and review of laboratory results Normal [facility] Interpretation and review of laboratory results Normal [facility] Interpretation and review of laboratory results Abnormal [facility] SaO2% (BldA) [Mass fraction] 100.0 % High 92 - 99 % [facility] Cross Match Compatible [facility] Product Code [id number] [facility] Product Code [id number] [facility] Product ID Red Blood Cells [facility] Status Info Released [facility] POC ABG SURG - RALSon 2018 Base Excess, Arterial 4 High [facility] Base Excess, Arterial 1 [facility] Base Excess, Arterial 3 High [facility] Calcium.ionized (Bld) [Mass/Vol] 4.7 mg/dL 4.5 - 5.3 mg/dL [facility] Calcium.ionized (Bld) [Mass/Vol] 4.9 mg/dL 4.5 - 5.3 mg/dL [facility] Calcium.ionized (Bld) [Mass/Vol] 4.6 mg/dL 4.5 - 5.3 mg/dL [facility] CO2 (Bld) [Partial pressure] 38.1 mm[Hg] [facility] CO2 (Bld) [Partial pressure] 53.2 mm[Hg] High [facility] CO2 (Bld) [Partial pressure] 40.5 mm[Hg] [facility] Glucose [Mass/Vol] 168 mg/dL High 65 - 99 mg/dL [facility] Glucose [Mass/Vol] 131 mg/dL High 65 - 99 mg/dL [facility] Glucose [Mass/Vol] 169 mg/dL High 65 - 99 mg/dL [facility] HCO3 (Bld) [Moles/Vol] 25.7 mmol/L 22 - 26 mmol/L [facility] HCO3 (Bld) [Moles/Vol] 27.3 mmol/L High 22 - 26 mmol/L [facility] HCO3 (Bld) [Moles/Vol] 30.4 mmol/L High 22 - 26 mmol/L [facility] Hematocrit (Bld) [Volume fraction] 39 % Low 41 - 53 % [facility] Hematocrit (Bld) [Volume fraction] 37 % Low 41 - 53 % [facility] Hematocrit (Bld) [Volume fraction] 40 % Low 41 - 53 % [facility] Hemoglobin (Bld) [Mass/Vol] 13.6 g/dL 13.5 - 17.5 g/dL [facility] Hemoglobin (Bld) [Mass/Vol] 12.6 g/dL Low 13.5 - 17.5 g/dL [facility] Hemoglobin (Bld) [Mass/Vol] 13.3 g/dL Low 13.5 - 17.5 g/dL [facility] Oxygen (Bld) [Partial pressure] 364 mm[Hg] High [facility] Oxygen (Bld) [Partial pressure] 432 mm[Hg] High [facility] Oxygen (Bld) [Partial pressure] 344 mm[Hg] High [facility] pH (Bld) 7.37 [pH] [facility] Sodium [Moles/Vol] 132 mmol/L Low 135 - 145 mmol/L [facility] Sodium [Moles/Vol] 134 mmol/L Low 135 - 145 mmol/L [facility] Sodium [Moles/Vol] 131 mmol/L Low 135 - 145 mmol/L [facility] POC ARTERIAL BLOOD GAS PANEL -NAFISA Wayne 01-24-2019 Alveolar-arterial oxygen Partial pressure difference 89.1 mm Hg [facility] Base excess Calc (Bld) [Moles/Vol] 1.1 mmol/L [facility] Breath rate setting Ventilator synchronized intermittent mandatory [facility] CO2 (Bld) [Partial pressure] 45.4 mm[Hg] High [facility] HCO3 (Bld) [Moles/Vol] 26.7 mmol/L High 22 - 26 mmol/L [facility] Hematocrit (BldA) [Volume fraction] 39.6 % Low 41 - 53 % [facility] Hemoglobin (Bld) [Mass/Vol] 12.9 g/dL Low 13.5 - 18 g/dL [facility] Inhaled oxygen concentration 40 % [facility] Interpretation and review of laboratory results Abnormal [facility] Oxygen (Bld) [Partial pressure] 132 mm[Hg] High [facility] PEEP Respiratory system 5 [facility] pH (Bld) 7.38 [pH] [facility] SaO2% (BldA) [Mass fraction] 98.7 % 92 - 99 % [facility] Tidal volume setting Ventilator 0 [facility] Alveolar-arterial oxygen Partial pressure difference 127.3 mm Hg [facility] Base excess Calc (Bld) [Moles/Vol] 1.0 mmol/L [facility] Breath rate setting Ventilator synchronized intermittent mandatory [facility] CO2 (Bld) [Partial pressure] 41.7 mm[Hg] [facility] HCO3 (Bld) [Moles/Vol] 26.0 mmol/L 22 - 26 mmol/L [facility] Hematocrit (BldA) [Volume fraction] 38.5 % Low 41 - 53 % [facility] Hemoglobin (Bld) [Mass/Vol] 12.5 g/dL Low 13.5 - 18 g/dL [facility] Inhaled oxygen concentration 40 % [facility] Interpretation and review of laboratory results Abnormal [facility] Oxygen (Bld) [Partial pressure] 98 mm[Hg] [facility] PEEP Respiratory system 5 [facility] pH (Bld) 7.40 [pH] [facility] SaO2% (BldA) [Mass fraction] 97.7 % 92 - 99 % [facility] Tidal volume setting Ventilator 800 [facility] Alveolar-arterial oxygen Partial pressure difference 307.3 mm Hg [facility] Base excess Calc (Bld) [Moles/Vol] 2.0 mmol/L [facility] Breath rate setting [facility]ilator synchronized [facility]] 39.5 mm[Hg] [facility] HCO3 (Bld) [Moles/Vol] 26.4 mmol/L High 22 - 26 mmol/L [facility] Hematocrit (BldA) [Volume fraction] 39.5 % Low 41 - 53 % [facility] Hemoglobin (Bld) [Mass/Vol] 12.9 g/dL Low 13.5 - 18 g/dL [facility] Inhaled oxygen concentration 70 % [facility] Interpretation and review of laboratory results Abnormal [facility] Oxygen (Bld) [Partial pressure] 126 mm[Hg] High [facility] PEEP Respiratory system 5 [facility] pH (Bld) 7.43 [pH] [facility] SaO2% (BldA) [Mass fraction] 98.7 % 92 - 99 % [facility] Specimen source Nom (Unsp spec) Not specified [facility] Tidal volume setting Ventilator 800 [facility] POC Glucoseon 01-24-2019 Glucose [Mass/Vol] 120 mg/dL High 65 - 99 mg/dL [facility] Interpretation and review of laboratory results Abnormal [facility] Glucose [Mass/Vol] 132 mg/dL High 65 - 99 mg/dL [facility] Glucose [Mass/Vol] 119 mg/dL High 65 - 99 mg/dL [facility] Glucose [Mass/Vol] 122 mg/dL High 65 - 99 mg/dL [facility] Interpretation and review of laboratory results Abnormal [facility] Glucose [Mass/Vol] 134 mg/dL High 65 - 99 mg/dL [facility] Interpretation and review of laboratory results Abnormal [facility] Glucose [Mass/Vol] 131 mg/dL High 65 - 99 mg/dL [facility] Interpretation and review of laboratory results Abnormal [facility] Glucose [Mass/Vol] 114 mg/dL High 65 - 99 mg/dL [facility] Glucose [Mass/Vol] 121 mg/dL High 65 - 99 mg/[facility] Interpretation and review of laboratory results Abnormal [facility] Glucose [Mass/Vol] 137 mg/dL High 65 - 99 mg/dL [facility] Interpretation and review of laboratory results Abnormal [facility] Glucose [Mass/Vol] 149 mg/dL High 65 - 99 mg/dL [facility] Interpretation and review of laboratory results Abnormal [facility] Glucose [Mass/Vol] 169 mg/dL High 65 - 99 mg/dL [facility] Interpretation and review of laboratory results Abnormal [facility] Glucose [Mass/Vol] 108 mg/dL High 65 - 99 mg/dL [facility] Interpretation and review of laboratory results Abnormal [facility] PREPARE RBCon 01-24-2019 Product Code [id number] [facility] Unit Number [id number] [facility] Unit Number [id number] [facility] Unit Number [id number] [facility] Unit Number [id number] [facility] Unit Number [id number] [facility] Unit Number [id number] [facility] PT/INRon 01-24-2019 INR Coag (PPP) [Relative time] 1.0 {INR} [facility] Interpretation and review of laboratory results Normal [facility] PT Coag (PPP) [Time] 13.[address] [facility] During the induction phase of oral anticoagulation, the INR may not reflect the anticoagulation status of the patient. Therapeutic ranges for INR's are: Most clinical situations: INR 2.0-3.0 Mechanical Prosthetic Valve: INR 2.5-3.5 Critical: INR >5.0 [facility] INR Coag (PPP) [Relative time] 1.1 {INR} [facility] PT Coag (PPP) [Time] 13.[address] [facility] During the induction phase of oral anticoagulation, the INR may not reflect the anticoagulation status of the patient. Therapeutic ranges for INR's are: Most clinical situations: INR 2.0-3.0 Mechanical Prosthetic Valve: INR 2.5-3.5 Critical: INR >5.0 [facility] INR Coag (PPP) [Relative time] 1.1 {INR} [facility] PT Coag (PPP) [Time] 13.[address] [facility] During the induction phase of oral anticoagulation, the INR may not reflect the anticoagulation status of the patient. Therapeutic ranges for INR's are: Most clinical situations: INR 2.0-3.0 Mechanical Prosthetic Valve: INR 2.5-3.5 Critical: INR >5.0 [facility] Type and Screenon 01-24-2019 ABO and Rh group Nom (Bld) O Negative [facility] Blood group antibody screen Ql Negative [facility] Specimen Expires 01/27/2019 23:59 EST [facility] XR Chest 1 Viewon 01-24-2019 1. No acute cardiopulmonary disease. 2. Normal heart size with evidence of prior coronary arterial stenting. 3. No acute osseous abnormality. IdiroT/jw Workstation ID: [id number] [facility] Interface, Rad In [facility] - 01/24/2019 5:04 PM EST EXAMINATION: 1 VIEW XR CHEST PA/AP, 01/24/2019 COMPARISON: Chest, 01/21/2019. HISTORY: Dx: R07.89 (Chest pain, atypical) Injury/Trauma or Illness?:Illness/Other How long have you had these symptoms (acute/chronic)?:Unknow n pre-op IMPRESSION: 1. No acute cardiopulmonary disease. 2. Normal heart size with evidence of prior coronary arterial stenting. 3. No acute osseous abnormality. T/Punchbowl Workstation ID: [id number] [facility] EXAMINATION: 1 VIEW XR CHEST PA/AP, 01/24/2019 COMPARISON: Chest, 01/21/2019. HISTORY: Dx: R07.89 (Chest pain, atypical) Injury/Trauma or Illness?:Illness/Other How long have you had these symptoms (acute/chronic)?:Unknow n pre-op [facility] 1. There is a right mainstem intubation that has been appropriately retracted on follow-up chest radiograph performed just following this exam. 2. Nasogastric tube is seen descending into the stomach although the tip is not included for visualization. Central mediastinal or left chest tube is in place. 3. Right internal jugular [place] line in place with tip in the main pulmonary artery. 4. Lung volumes are slightly diminished with some crowding of bronchopulmonary vasculature. Some discoid atelectasis in the left upper lobe suspected. 5. Stable heart size with evidence of coronary arterial stenting in CABG. GJT/lab Workstation ID: [id number] [facility], Rad In [facility] - 01/24/2019 5:03 PM EST EXAMINATION: 1-VIEW [...] is in place. 3. Right internal jugular [place] line in place with tip in the main pulmonary artery. 4. Lung volumes are slightly diminished with some crowding of bronchopulmonary vasculature. Some discoid atelectasis in the left upper lobe suspected. 5. Stable heart size with evidence of coronary arterial stenting in CABG. GJT/lab Workstation ID: [id number] [facility] EXAMINATION: 1-VIEW XR CHEST PA/AP 01/24/2019 AT 10:13 AM COMPARISON: Chest radiograph performed later in the day at 10:20 a.m. HISTORY: Dx: R07.89 (Chest pain, atypical). Injury/Trauma or Illness?: Illness/Other. How long have you had these symptoms (acute/chronic)?: Unknown. ET tube placement. [facility] EXAMINATION: 1 VIEW XR CHEST PA/AP, 01/24/2019 AT 10:20 A.M. COMPARISON: Chest radiograph performed earlier the same day at 10:13 a.m. HISTORY: Dx: R07.89 (Chest pain, atypical) Injury/Trauma or Illness?:Illness/Other How long have you had these symptoms (acute/chronic)?:Unknow n reposition OG [facility] 1. Endotracheal tube has been retracted and is probably located at the level of thoracic inlet. 2. Orogastric tube is again seen extending into the stomach although the tip is not included for visualization. Central mediastinal or left chest tube and right internal jugular [place] line remain in stable position. 3. Lung volumes is slightly diminished with some discoid atelectasis slightly progressed in the left lung apex since the prior exam. No pneumothorax. 4. Stable heart size with evidence of coronary arterial stenting and new CABG. GJT/trn Workstation ID: [id number] [facility] Interface, Rad In [facility] - 01/24/2019 5:03 PM EST EXAMINATION: 1 VIEW XR CHEST PA/AP, 01/24/2019 AT 10:20 A.M. COMPARISON: Chest radiograph performed earlier the same day at 10:13 a.m. HISTORY: Dx: R07.89 (Chest pain, atypical) Injury/Trauma or Illness?:Illness/Other How long have you had these symptoms (acute/chronic)?:Unknow n reposition OG IMPRESSION: 1. Endotracheal tube has been retracted and is probably located at the level of thoracic inlet. 2. Orogastric tube is again seen extending into the stomach although the tip is not included for visualization. Central mediastinal or left chest tube and right internal jugular [place] line remain in stable position. 3. Lung volumes is slightly diminished with some discoid atelectasis slightly progressed in the left lung apex since the prior exam. No pneumothorax. 4. Stable heart size with evidence of coronary arterial stenting and new CABG. GJT/trn Workstation ID: [id number] [facility] APTTon 01-23-2019 aPTT Coag (Bld) [Time] 79 s High [facility] Interpretation and review of laboratory results Abnormal [facility] Therapeutic range fo r APTT's is 68 - 104 seconds [facility] Basic Metabolic Panelon 01-12 Anion gap [Moles/Vol] 11 mmol/L 10 - 2 0 mmol/L [facility] Calcium [Mass/Vol] 9.3 mg/dL 8.4 - 10. 2 mg/dL [facility] Chloride [Moles/Vol] 99 mmol/L 98 - 10 8 mmol/L [facility] Creatinine [Mass/Vol] 1.22 mg/dL 0.5 - 1.3 mg/dL [facility] GFR/1.73 sq M.predicted CKD-EPI (S/P/Bld) [Vol rate/Area] 70 >=60 mL/min/1.73 m2 [facility] Glucose [Mass/Vol] 124 mg/dL High 65 - 99 mg/dL [facility] HCO3 [Moles/Vol] 27 mmol/L 21 - 32 mmol/L [facility] Interpretation and review of laboratory results Abnormal [facility] Potassium [Moles/Vol] 4.0 mmol/L 3.5 - 5.1 mmol/L [facility] Sodium [Moles/Vol] 133 mmol/L Low 135 - 145 mmol/L [facility] Urea nitrogen [Mass/Vol] 25 mg/dL 8 - 25 mg/dL [facility] Urea nitrogen/Creatinine [Mass ratio] 20.5 mg/mg High [facility] The eGFR should be u sed for monitoring renal function only and not for medication dosing. [facility] CBC WITH AUTO DIFFERENTIALon 01-23-2019 Basophils (Bld) [#/Vol] 0.08 10*3/uL [facility] Basophils/100 WBC (Bld) 0.7 % [facility] Eosinophils (Bld) [#/Vol] 0.80 10*3/uL High [facility] Eosinophils/100 WBC (Bld) 6.6 % [facility] Erythrocyte distribution width (RBC) [Entitic vol] 14.1 % 11.6 - 14.8 % [facility] Hematocrit (Bld) [Volume fraction] 42.4 % 41 - 53 % [facility] Hemoglobin (Bld) [Mass/Vol] 14.3 g/dL 13.5 - 17.5 g/dL [facility] Immature granulocytes (Bld) [#/Vol] 0.16 10*3/uL [facility] Immature granulocytes/100 WBC (Bld) 1.30 % [facility] Comment on above: The IG parameter is the percentage of metamyelocytes, myelocytes, and promyelocytes. Interpretation and review of laboratory results Abnormal [facility] Lymphocytes (Bld) [#/Vol] 3.27 10*3/uL [facility] Lymphocytes/100 WBC (Bld) 26.9 % [facility] MCH (RBC) [Entitic mass] 28.4 pg 26 - 34 pg [facility] MCHC (RBC) [Mass/Vol] 33.7 g/dL 31 - 37 g/dL [facility] MCV (RBC) [Entitic vol] 84.1 fL 80 - 100 fL [facility] Monocytes (Bld) [#/Vol] 1.03 10*3/uL High [facility] Monocytes/100 WBC (Bld) 8.5 % [facility] Neutrophils (Bld) [#/Vol] 6.83 10*3/uL [facility] Neutrophils/100 WBC (Bld) 56.0 % [facility] Nucleated RBC (Bld) [#/Vol] 0.00 10*3/uL [facility] Nucleated RBC/100 WBC (Bld) [Ratio] 0.0 % [facility] Platelet mean volume (Bld) [Entitic vol] 10.3 fL 9 - 15.5 fL [facility] Platelets (Bld) [#/Vol] 239 10*3/uL [facility] RBC (Bld) [#/Vol] 5.04 10*6/uL [facility] WBC (Bld) [#/Vol] 12.17 10*3/uL [facility] Complete PFT Dr. Javi earl readon 01-23-2019 DLCO %Pre Predicted 71 % [facility] DLCO Pre 21.5 mL/mmHg/min [facility] DLCO Predicted 30.1 mL/mmHg/min [facility] DLCO/VA %Pre Predicted 103 % [facility] DLCO/VA Pre 4.09 mL/mmHg/min/L [facility] DLCO/VA Predicted 3.97 mL/mmHg/min/L [facility] ERV Pre 0.71 Liters [facility] FEV1 %Change 3 % [facility] FEV1 %Post Predicted 81 % [facility] FEV1 %Pre Predicted 79 % [facility] FEV1 Post 2.88 Liters [facility] FEV1 Pre 2.80 Liters [facility] FEV1 Predicted 3.54 Liters [facility] FEV1/FVC %Change 3 % [facility] FEV1/FVC %Post Predicted 90 % [facility] FEV1/FVC %Pre Predicted 87 % [facility] FEV1/FVC Post 70 % [facility] FEV1/FVC Pre 68 % [facility] FEV1/FVC Predicted 78 % [facility] FRC PL %Pre Predicted 125 % [facility] FRC PL Pre 3.11 Liters [facility] FRC PL Predicted 2.[address] [facility] FVC %Change 0 % [facility] FVC %Post Predicted 91 % [facility] FVC %Pre Predicted 91 % [facility] FVC Post 4.11 Liters [facility] FVC Pre 4.10 Liters [facility] FVC Predicted 4.50 Liters [facility] RV %Pre Predicted 128 % [facility] RV Pre 2.41 Liters [facility] RV Predicted 1.88 Liters [facility] TLC %Pre Predicted 112 % [facility] TLC Pre 6.58 Liters [facility] TLC Predicted 5.90 Liters [facility] VC %Pre Predicted 93 % [facility] VC Pre 4.17 Liters [facility] VC Predicted 4.50 Liters [facility] INTERPRETATION: ATS Guidelines met. Good patient effort. Spirometry shows borderline/very mild obstruction that appears fixed. Lung volumes are normal. Diffusion capacity uncorrected for hemoglobin is mildly reduced, but does correct when alveolar volumes accounted for. Early/very mild COPD. [facility] POC Glucoseon 01-23-2019 Glucose [Mass/Vol] 163 mg/dL High 65 - 99 mg/dL [facility] Interpretation and review of laboratory results Abnormal [facility] Glucose [Mass/Vol] 110 mg/dL High 65 - 99 mg/dL [facility] Interpretation and review of laboratory results Abnormal [facility] Glucose [Mass/Vol] 106 mg/dL High 65 - 99 mg/dL [facility] Interpretation and review of laboratory results Abnormal [facility] Upper Respiratory Aerobic Cu ltureon 01-23-2019 Bacteria identified Aer cx Nom (Nose) Light Growth Staphylococcus aureus Abnormal [facility] Comment on above: This Staphylococcus aureus is Methicillin SUSCEPTIBLE by PBP2a testing. Beta-lactams like Cefazolin and Nafcillin are superior to Vancomycin for treating mSsa. Interpretation and review of laboratory results Abnormal [facility] Urine Aerobic Cultureon 01-12 Bacteria identified Aer cx Nom (Unsp spec) 10,000-49,000 CFU/mL Staphylococcus aureus Abnormal [facility] Interpretation and review of laboratory results Abnormal [facility] APTTon 01-22-2019 aPTT Coag (Bld) [Time] 70 s [facility] Therapeutic range fo r APTT's is 68 - 104 seconds [facility] aPTT Coag (Bld) [Time] 58 s [facility] Interpretation and review of laboratory results Abnormal [facility] Therapeutic range fo r APTT's is 68 - 104 seconds [facility] aPTT Coag (Bld) [Time] 44 s [facility] Interpretation and review of laboratory results Abnormal [facility] Therapeutic range fo r APTT's is 68 - 104 seconds [facility] Basic Metabolic Panelon 01-12 Anion gap [Moles/Vol] 12 mmol/L 10 - 2 0 mmol/L [facility] Calcium [Mass/Vol] 8.9 mg/dL 8.4 - 10. 2 mg/dL [facility] Chloride [Moles/Vol] 102 mmol/L 98 - 10 8 mmol/L [facility] Creatinine [Mass/Vol] 1.23 mg/dL 0.5 - 1.3 mg/dL [facility] GFR/1.73 sq M.predicted CKD-EPI (S/P/Bld) [Vol rate/Area] 69 >=60 mL/min/1.73 m2 [facility] Glucose [Mass/Vol] 125 mg/dL High 65 - 99 mg/dL [facility] HCO3 [Moles/Vol] 25 mmol/L 21 - 32 mmol/L [facility] Interpretation and review of laboratory results Abnormal [facility] Potassium [Moles/Vol] 3.9 mmol/L 3.5 - 5.1 mmol/L [facility] Sodium [Moles/Vol] 135 mmol/L 135 - 145 mmol/L [facility] Urea nitrogen [Mass/Vol] 26 mg/dL High 8 - 25 mg/dL [facility] Urea nitrogen/Creatinine [Mass ratio] 21.1 mg/mg High [facility] The eGFR should be u sed for monitoring renal function only and not for medication dosing. [facility] CBC WITH AUTO DIFFERENTIALon 01-22-2019 Basophils (Bld) [#/Vol] 0.08 10*3/uL [facility] Basophils/100 WBC (Bld) 0.7 % [facility] Eosinophils (Bld) [#/Vol] 0.74 10*3/uL High [facility] Eosinophils/100 WBC (Bld) 6.5 % [facility] Erythrocyte distribution width (RBC) [Entitic vol] 14.0 % 11.6 - 14.8 % [facility] Hematocrit (Bld) [Volume fraction] 41.8 % 41 - 53 % [facility] Hemoglobin (Bld) [Mass/Vol] 13.5 g/dL 13.5 - 17.5 g/dL [facility] Immature granulocytes (Bld) [#/Vol] 0.15 10*3/uL [facility] Immature granulocytes/100 WBC (Bld) 1.30 % [facility] Comment on above: The IG parameter is the percentage of metamyelocytes, myelocytes, and promyelocytes. Interpretation and review of laboratory results Abnormal [facility] Lymphocytes (Bld) [#/Vol] 3.52 10*3/uL [facility] Lymphocytes/100 WBC (Bld) 30.9 % [facility] MCH (RBC) [Entitic mass] 27.4 pg 26 - 34 pg [facility] MCHC (RBC) [Mass/Vol] 32.3 g/dL 31 - 37 g/dL [facility] MCV (RBC) [Entitic vol] 85.0 fL 80 - 100 fL [facility] Monocytes (Bld) [#/Vol] 0.93 10*3/uL High [facility] Monocytes/100 WBC (Bld) 8.2 % [facility] Neutrophils (Bld) [#/Vol] 5.96 10*3/uL [facility] Neutrophils/100 WBC (Bld) 52.4 % [facility] Nucleated RBC (Bld) [#/Vol] 0.00 10*3/uL [facility] Nucleated RBC/100 WBC (Bld) [Ratio] 0.0 % [facility] Platelet mean volume (Bld) [Entitic vol] 10.0 fL 9 - 15.5 fL [facility] Platelets (Bld) [#/Vol] 237 10*3/uL [facility] RBC (Bld) [#/Vol] 4.92 10*6/uL [facility] WBC (Bld) [#/Vol] 11.38 10*3/uL [facility] DRUGS OF ABUSE SCREEN, URINE on 01-22-2019 Amphetamines Ql (U) None Detected None Detected [facility] Comment on above: Urine Amphetamine Cu toff: < 1000 ng/mL = None Detected Barbiturates Screen Ql (U) None Detected None Detected [facility] Comment on above: Urine Barbiturates C utoff: < 200 ng/mL = None Detected Benzodiazepines Ql (U) None Detected None Detec prasad [facility] Comment on above: Urine Benzodiazepine Cutoff: < 200 ng/mL = None Detected Cannabinoids Screen Ql (U) None Detected None Detected [facility] Comment on above: Urine Cannabinoids C utoff: < 50 ng/mL = None Detected Cocaine Ql (U) None Detected None Detected [facility] Comment on above: Urine Cocaine Cutoff : < 300 ng/mL = None Detected Interpretation and review of laboratory results Normal [facility] Methadone Screen Ql (U) None Detected None Dete cted [facility] Comment on above: Urine Methadone Cuto ff: < 300 ng/mL = None Detected Opiates Screen Ql (U) None Detected None Detect ed [facility] Comment on above: Urine Opiates Cutoff : < 300 ng/mL = None Detected Oxycodone Ql (U) None Detected None Detected [facility] Comment on above: Urine Oxycodone Cuto ff: < 100 ng/mL = None Detected Screen results shoul d be used for treatment purposes only. [facility] Otheron 01-22-2019 Interpretation and review of laboratory results Abnormal [facility] POC Glucoseon 01-22-2019 Glucose [Mass/Vol] 142 mg/dL High 65 - 99 mg/dL [facility] Interpretation and review of laboratory results Abnormal [facility] Glucose [Mass/Vol] 107 mg/dL High 65 - 99 mg/dL [facility] Glucose [Mass/Vol] 116 mg/dL High 65 - 99 mg/dL [facility] Interpretation and review of laboratory results Abnormal [facility] URINALYSISon 01-22-2019 Bacteria Auto Ql (U) None Seen None Se en /hpf [facility] Bilirubin Ql (U) Negative Negative [facility] th Clarity Refractometry automated (U) Clear Clear [facility] Color (U) Colorless Colorless, Yellow [facility] Glucose Auto test strip (U) [Mass/Vol] Negative Negative mg/dL [facility] Hemoglobin Auto test strip Ql (U) Negative Negative [facility] Interpretation and review of laboratory results Normal [facility] Ketones (U) [Mass/Vol] Negative Negat bryan mg/dL [facility] Leukocyte esterase Auto test strip Ql (U) Negative Negative [facility] Nitrite Auto test strip Ql (U) Negative Negative [facility] pH (U) 6.0 [pH] [facility] Protein (U) [Mass/Vol] Negative Negat bryan mg/dL [facility] RBC Auto (Urine sed) [#/Area] <1 [facility] Specific gravity (U) [Rel density] 1.008 [facility] Urobilinogen (U) [Mass/Vol] <2.0 <2.0 mg/dL [facility] WBC Auto (Urine sed) [#/Area] <1 [facility] Microscopic examinat ion is performed on all urinalysis samples and only positive findings are reported. The test for blood on the chemical analytic portion of urinalysis may also be positive due to hemoglobinuria and myoglobinuria and if red blood cells are present they are quantified by microscopic examination. [facility] APTTon 01-21-2019 aPTT Coag (Bld) [Time] 30 s [facility] Interpretation and review of laboratory results Normal [facility] Therapeutic range fo r APTT's is 68 - 104 seconds [facility] Basic Metabolic Panelon 01-12 Anion gap [Moles/Vol] 11 mmol/L 10 - 2 0 mmol/L [facility] Calcium [Mass/Vol] 9.1 mg/dL 8.4 - 10. 2 mg/dL [facility] Chloride [Moles/Vol] 102 mmol/L 98 - 10 8 mmol/L [facility] Creatinine [Mass/Vol] 1.11 mg/dL 0.5 - 1.3 mg/dL [facility] GFR/1.73 sq M.predicted CKD-EPI (S/P/Bld) [Vol rate/Area] 79 >=60 mL/min/1.73 m2 [facility] Glucose [Mass/Vol] 116 mg/dL High 65 - 99 mg/dL [facility] HCO3 [Moles/Vol] 26 mmol/L 21 - 32 mmol/L [facility] Interpretation and review of laboratory results Abnormal [facility] Potassium [Moles/Vol] 4.0 mmol/L 3.5 - 5.1 mmol/L [facility] Sodium [Moles/Vol] 135 mmol/L 135 - 145 mmol/L [facility] Urea nitrogen [Mass/Vol] 22 mg/dL 8 - 25 mg/dL [facility] Urea nitrogen/Creatinine [Mass ratio] 19.8 mg/mg [facility] The eGFR should be u sed for monitoring renal function only and not for medication dosing. [facility] CBC WITH AUTO DIFFERENTIALon 01-21-2019 Basophils (Bld) [#/Vol] 0.07 10*3/uL [facility] Basophils/100 WBC (Bld) 0.6 % [facility] Eosinophils (Bld) [#/Vol] 0.69 10*3/uL High [facility] Eosinophils/100 WBC (Bld) 6.1 % [facility] Erythrocyte distribution width (RBC) [Entitic vol] 14.0 % 11.6 - 14.8 % [facility] Hematocrit (Bld) [Volume fraction] 43.6 % 41 - 53 % [facility] Hemoglobin (Bld) [Mass/Vol] 14.2 g/dL 13.5 - 17.5 g/dL [facility] Immature granulocytes (Bld) [#/Vol] 0.14 10*3/uL [facility] Immature granulocytes/100 WBC (Bld) 1.20 % [facility] Comment on above: The IG parameter is the percentage of metamyelocytes, myelocytes, and promyelocytes. Interpretation and review of laboratory results Abnormal [facility] Lymphocytes (Bld) [#/Vol] 2.23 10*3/uL [facility] Lymphocytes/100 WBC (Bld) 19.8 % [facility] MCH (RBC) [Entitic mass] 27.6 pg 26 - 34 pg [facility] MCHC (RBC) [Mass/Vol] 32.6 g/dL 31 - 37 g/dL [facility] MCV (RBC) [Entitic vol] 84.7 fL 80 - 100 fL [facility] Monocytes (Bld) [#/Vol] 0.98 10*3/uL High [facility] Monocytes/100 WBC (Bld) 8.7 % [facility] Neutrophils (Bld) [#/Vol] 7.17 10*3/uL [facility] Neutrophils/100 WBC (Bld) 63.6 % [facility] Nucleated RBC (Bld) [#/Vol] 0.00 10*3/uL [facility] Nucleated RBC/100 WBC (Bld) [Ratio] 0.0 % [facility] Platelet mean volume (Bld) [Entitic vol] 9.9 fL 9 - 15.5 fL [facility] Platelets (Bld) [#/Vol] 267 10*3/uL [facility] RBC (Bld) [#/Vol] 5.15 10*6/uL [facility] ealth WBC (Bld) [#/Vol] 11.28 10*3/uL [facility] ECHOCARDIOGRAM 2D COMPLETEon 01-21-[address] [place] [address] [place] [address] ECHOCARDIOGRAPHY REPORT - [facility] Name: FERNANDO HELTON Age: 48 years Date: 01/21/2019 Hospital #: [id number] : 1970 Room: [address] [place] [address] Rec #: [id number] Sex: M Tech: Emma Tsai Ordering Physician: [id number] KRISTIN ABRAHAM TITLEY Height: 67.00 Sys BP: 119 in cc: , Weight: 257.00 Mira BP: 78 Reading Physician: [id number] Durán/ Rhythm: Sinus Electronically Signed by: Bo Durán BSA: 2.25 m on: 01/21/2019 Reason [...] LA Index (BP) 17.6 ml/m [employer] NOTES: Definity (if used): 3ml Final [facility], Rad In [facility] Xper Echopacs - 01/21/2019 3:[address] [address] [place] [address] ------ ----- ECHOCARDIOGRAPHY REPORT - [facility] ------ ----- Name: FERNANDO HELTON Age: 48 years Date: 01/21/2019 Hospital #: [id number] : 1970 Room: [address] [place] [address] #: [id number] Sex: M Tech: Emma Tsai Ordering Physician: [id number] KRISTIN ABRAHAM TITLEY Height: 67.00 Sys BP: 119 in cc: , Weight: 257.00 Mira BP: 78 Reading Physician: [id number] Durán/ Rhythm: Sinus Electronically Signed by: Bo Durán BSA: 2.25 m on: 01/21/2019 Reason [...] LA Index (BP) 17.6 ml/m [employer] NOTES: Definity (if used): 3ml Final IMPRESSION: 1. Mildly dilated left ventricle with basal septal wall hypertrophy measuring 1.5 cm in maximal thickness. Mild segmental left ventricular systolic dysfunction with estimated LVEF 45-50%. Wall motion abnormalities as outlined below. [facility] 1. Mildly dilated le ft ventricle with basal septal wall hypertrophy measuring 1.5 cm in maximal thickness. Mild segmental left ventricular systolic dysfunction with estimated LVEF 45-50%. Wall motion abnormalities as outlined below. [facility] POC Glucoseon 01-21-2019 Glucose [Mass/Vol] 147 mg/dL High 65 - 99 mg/dL [facility] Interpretation and review of laboratory results Abnormal [facility] Glucose [Mass/Vol] 176 mg/dL High 65 - 99 mg/dL [facility] Interpretation and review of laboratory results Abnormal [facility] Glucose [Mass/Vol] 119 mg/dL High 65 - 99 mg/dL [facility] Interpretation and review of laboratory results Abnormal [facility] XR CHEST AP/PA AND LATon Interface, Rad [...] No acute cardiopulmonary disease. Workstation ID: [id number] [facility] EXAMINATION: XR CHES T AP/PA AND LAT [...] focal airspace consolidation, or pulmonary vascular congestion. [facility] No acute cardiopulmonary disease. Workstation ID: [id number] [facility] ABORH VERIFICATIONon 019 ABO and Rh group Nom (Bld) ABO/Rh Verification [facility] ABO and Rh group Nom (Bld) O Negative [facility] Patient's ABO/Rh is verified. [facility] AMYLASEon 01-20-2019 Amylase [Catalytic activity/Vol] 38 U/L 25 - 115 U/L [facility] APTTon 01-20-2019 aPTT Coag (Bld) [Time] 61 s High [facility] Interpretation and review of laboratory results Abnormal [facility] Therapeutic range fo r APTT's is 68 - 104 seconds [facility] Basic Metabolic Panelon Anion gap [Moles/Vol] 12 mmol/L 10 - 2 0 mmol/L [facility] Calcium [Mass/Vol] 8.3 mg/dL Low 8.4 - 10. 2 mg/dL [facility] Chloride [Moles/Vol] 106 mmol/L 98 - 10 8 mmol/L [facility] Creatinine [Mass/Vol] 1.17 mg/dL 0.5 - 1.3 mg/dL [facility] GFR/1.73 sq M.predicted CKD-EPI (S/P/Bld) [Vol rate/Area] 74 >=60 mL/min/1.73 m2 [facility] Glucose [Mass/Vol] 134 mg/dL High 65 - 99 mg/dL [facility] HCO3 [Moles/Vol] 24 mmol/L 21 - 32 mmol/L [facility] Interpretation and review of laboratory results Abnormal [facility] Potassium [Moles/Vol] 3.9 mmol/L 3.5 - 5.1 mmol/L [facility] Sodium [Moles/Vol] 138 mmol/L 135 - 145 mmol/L [facility] Urea nitrogen [Mass/Vol] 19 mg/dL 8 - 25 mg/dL [facility] Urea nitrogen/Creatinine [Mass ratio] 16.2 mg/mg [facility] The eGFR should be u sed for monitoring renal function only and not for medication dosing. [facility] CARDIAC CATHETERIZATIONon Cardiac Catheterizat ion Operative Report [...] the chart. Patient was brought to the [employer] [facility] and prepped and draped in usual [...] using a modified Seldinger technique. A 5 [place]i sheath was placed. JL4 and JR4 catheter [...] None; patient tolerated the procedure well. Disposition: [facility] Bed Condition: stable Electronically Signed by: Carlo Mercedes M.D 01/20/19 9:09 AM [facility] CBC WITH AUTO DIFFERENTIALon 01-20-2019 Basophils (Bld) [#/Vol] 0.08 10*3/uL [facility] Basophils/100 WBC (Bld) 0.6 % [facility] Eosinophils (Bld) [#/Vol] 0.76 10*3/uL High [facility] Eosinophils/100 WBC (Bld) 5.7 % [facility] Erythrocyte distribution width (RBC) [Entitic vol] 14.2 % 11.6 - 14.8 % [facility] Hematocrit (Bld) [Volume fraction] 41.2 % 41 - 53 % [facility] Hemoglobin (Bld) [Mass/Vol] 13.6 g/dL 13.5 - 17.5 g/dL [facility] Immature granulocytes (Bld) [#/Vol] 0.10 10*3/uL [facility] Immature granulocytes/100 WBC (Bld) 0.70 % [facility] Comment on above: The IG parameter is the percentage of metamyelocytes, myelocytes, and promyelocytes. Interpretation and review of laboratory results Abnormal [facility] Lymphocytes (Bld) [#/Vol] 3.59 10*3/uL [facility] Lymphocytes/100 WBC (Bld) 26.7 % [facility] MCH (RBC) [Entitic mass] 28.2 pg 26 - 34 pg [facility] MCHC (RBC) [Mass/Vol] 33.0 g/dL 31 - 37 g/dL [facility] MCV (RBC) [Entitic vol] 85.3 fL 80 - 100 fL [facility] Monocytes (Bld) [#/Vol] 1.01 10*3/uL High [facility] Monocytes/100 WBC (Bld) 7.5 % [facility] Neutrophils (Bld) [#/Vol] 7.90 10*3/uL High [facility] Neutrophils/100 WBC (Bld) 58.8 % [facility] Nucleated RBC (Bld) [#/Vol] 0.00 10*3/uL [facility] Nucleated RBC/100 WBC (Bld) [Ratio] 0.0 % [facility] Platelet mean volume (Bld) [Entitic vol] 10.1 fL 9 - 15.5 fL [facility] Platelets (Bld) [#/Vol] 259 10*3/uL [facility] RBC (Bld) [#/Vol] 4.83 10*6/uL [facility] WBC (Bld) [#/Vol] 13.44 10*3/uL High [facility] EKGon 01-20-2019 Ordered by an unspecified provider. [facility] Hemoglobin A1con 01-20-2019 Average glucose Estimated from glycated hemoglobin mass conc (Bld) 140 mg/dL High 68 - 114 mg/dL [facility] HbA1c (Bld) [Mass fraction] 6.5 % High 4 - 5.6 % [facility] Interpretation and review of laboratory results Abnormal [facility] Normal: 4.0% - 5.6% Increased risk for diabetes: 5.7% - 6.4% Diabetes: >= 6.5% Pediatrics: No established reference range Estimated average glucose: 68-114 mg/dL [facility] Hepatic Function Panelon Albumin [Mass/Vol] 3.1 g/dL Low 3.2 - 5.2 g/dL [facility] ALP [Catalytic activity/Vol] 68 U/L 40 - 150 U/L [facility] ALT [Catalytic activity/Vol] 79 U/L High 14 - 65 U/L [facility] AST [Catalytic activity/Vol] 42 U/L 0 - 45 U/L [facility] Bilirubin [Mass/Vol] 0.7 mg/dL 0 - 1.3 mg/dL [facility] Bilirubin.conjugated [Mass/Vol] 0.1 mg/dL 0 - 0.4 mg/dL [facility] Protein [Mass/Vol] 6.3 g/dL 6 - 8 g/dL [facility] alth Otheron 01-20-2019 Interpretation and review of laboratory results Normal [facility] Interpretation and review of laboratory results Abnormal [facility] POC ARTERIAL BLOOD GAS PANEL -PULM - RALSon 01-20-2019 Alveolar-arterial oxygen Partial pressure difference 24.0 mm Hg [facility] Base excess Calc (Bld) [Moles/Vol] 0.6 mmol/L [facility] Breath rate setting Ventilator synchronized intermittent mandatory 0 [facility] h CO2 (Bld) [Partial pressure] 41.3 mm[Hg] [facility] HCO3 (Bld) [Moles/Vol] 25.5 mmol/L 22 - 26 mmol/L [facility] Hematocrit (BldA) [Volume fraction] 43.1 % 41 - 53 % [facility] Hemoglobin (Bld) [Mass/Vol] 14.1 g/dL 13.5 - 18 g/dL [facility] Inhaled oxygen concentration 21 % [facility] Interpretation and review of laboratory results Abnormal [facility] Oxygen (Bld) [Partial pressure] 70 mm[Hg] Low [facility] pH (Bld) 7.40 [pH] [facility] SaO2% (BldA) [Mass fraction] 94.5 % 92 - 99 % [facility] Specimen source Nom (Unsp spec) Radial, left [facility] Tidal volume setting Ventilator 0 [facility] PT/INRon 01-20-2019 INR Coag (PPP) [Relative time] 1.0 {INR} [facility] Interpretation and review of laboratory results Normal [facility] PT Coag (PPP) [Time] 12.[address] [facility] During the induction phase of oral anticoagulation, the INR may not reflect the anticoagulation status of the patient. Therapeutic ranges for INR's are: Most clinical situations: INR 2.0-3.0 Mechanical Prosthetic Valve: INR 2.5-3.5 Critical: INR >5.0 [facility] Prealbuminon 01-20-2019 Prealbumin [Mass/Vol] 19.7 mg/dL Low 20 - 40 mg/dL [facility] T4, Freeon 01-20-2019 Free T4 [Mass/Vol] 1.0 ng/dL 0.7 - 1.7 ng/dL [facility] TSHon 01-20-2019 TSH Qn 1.15 m[IU]/L [facility] Type and Screenon 01-20-2019 ABO and Rh group Nom (Bld) O Negative [facility] Blood group antibody screen Ql Negative [facility] Specimen Expires 01/23/2019 23:59 EST [facility] APTTon 01-19-2019 aPTT Coag (Bld) [Time] 79 s High [facility] Interpretation and review of laboratory results Abnormal [facility] Therapeutic range fo r APTT's is 68 - 104 seconds [facility] aPTT Coag (Bld) [Time] 85 s High [facility] Interpretation and review of laboratory results Abnormal [facility] Therapeutic range fo r APTT's is 68 - 104 seconds [facility] aPTT Coag (Bld) [Time] 89 s High [facility] Interpretation and review of laboratory results Abnormal [facility] Therapeutic range fo r APTT's is 68 - 104 seconds [facility] Basic Metabolic Panelon 12- Anion gap [Moles/Vol] 11 mmol/L 10 - 2 0 mmol/L [facility] Calcium [Mass/Vol] 8.6 mg/dL 8.4 - 10. 2 mg/dL [facility] Chloride [Moles/Vol] 108 mmol/L 98 - 10 8 mmol/L [facility] Creatinine [Mass/Vol] 1.15 mg/dL 0.5 - 1.3 mg/dL [facility] GFR/1.73 sq M.predicted CKD-EPI (S/P/Bld) [Vol rate/Area] 75 >=60 mL/min/1.73 m2 [facility] Glucose [Mass/Vol] 121 mg/dL High 65 - 99 mg/dL [facility] HCO3 [Moles/Vol] 25 mmol/L 21 - 32 mmol/L [facility] Interpretation and review of laboratory results Abnormal [facility] Potassium [Moles/Vol] 4.0 mmol/L 3.5 - 5.1 mmol/L [facility] Sodium [Moles/Vol] 140 mmol/L 135 - 145 mmol/L [facility] Urea nitrogen [Mass/Vol] 19 mg/dL 8 - 25 mg/dL [facility] Urea nitrogen/Creatinine [Mass ratio] 16.5 mg/mg [facility] The eGFR should be u sed for monitoring renal function only and not for medication dosing. [facility] CBCon 01-19-2019 Erythrocyte distribution width (RBC) [Entitic vol] 14.1 % 11.6 - 14.8 % [facility] Hematocrit (Bld) [Volume fraction] 41.6 % 41 - 53 % [facility] Hemoglobin (Bld) [Mass/Vol] 13.8 g/dL 13.5 - 17.5 g/dL [facility] Interpretation and review of laboratory results Abnormal [facility] MCH (RBC) [Entitic mass] 28.1 pg 26 - 34 pg [facility] MCHC (RBC) [Mass/Vol] 33.2 g/dL 31 - 37 g/dL [facility] MCV (RBC) [Entitic vol] 84.7 fL 80 - 100 fL [facility] Nucleated RBC (Bld) [#/Vol] 0.00 10*3/uL [facility] Nucleated RBC/100 WBC (Bld) [Ratio] 0.0 % [facility] Platelet mean volume (Bld) [Entitic vol] 10.0 fL 9 - 15.5 fL [facility] Platelets (Bld) [#/Vol] 258 10*3/uL [facility] RBC (Bld) [#/Vol] 4.91 10*6/uL [facility]alth WBC (Bld) [#/Vol] 14.77 10*3/uL [facility] CBC WITH AUTO DIFFERENTIALon 01-19-2019 Basophils (Bld) [#/Vol] 0.08 10*3/uL [facility] Basophils/100 WBC (Bld) 0.6 % [facility] Eosinophils (Bld) [#/Vol] 0.74 10*3/uL [facility] Eosinophils/100 WBC (Bld) 5.6 % [facility] Erythrocyte distribution width (RBC) [Entitic vol] 14.3 % 11.6 - 14.8 % [facility] Hematocrit (Bld) [Volume fraction] 41.6 % 41 - 53 % [facility] Hemoglobin (Bld) [Mass/Vol] 13.7 g/dL 13.5 - 17.5 g/dL [facility] Immature granulocytes (Bld) [#/Vol] 0.10 10*3/uL [facility] Immature granulocytes/100 WBC (Bld) 0.80 % [facility] Comment on above: The IG parameter is the percentage of metamyelocytes, myelocytes, and promyelocytes. Interpretation and review of laboratory results Abnormal [facility] Lymphocytes (Bld) [#/Vol] 3.57 10*3/uL [facility] Lymphocytes/100 WBC (Bld) 27.0 % [facility] MCH (RBC) [Entitic mass] 28.3 pg 26 - 34 pg [facility] MCHC (RBC) [Mass/Vol] 32.9 g/dL 31 - 37 g/dL [facility] MCV (RBC) [Entitic vol] 86.0 fL 80 - 100 fL [facility] Monocytes (Bld) [#/Vol] 0.92 10*3/uL High [facility] Monocytes/100 WBC (Bld) 7.0 % [facility] Neutrophils (Bld) [#/Vol] 7.81 10*3/uL High [facility] Neutrophils/100 WBC (Bld) 59.0 % [facility] Nucleated RBC (Bld) [#/Vol] 0.00 10*3/uL [facility] Nucleated RBC/100 WBC (Bld) [Ratio] 0.0 % [facility] Platelet mean volume (Bld) [Entitic vol] 10.1 fL 9 - 15.5 fL [facility] Platelets (Bld) [#/Vol] 256 10*3/uL [facility] RBC (Bld) [#/Vol] 4.84 10*6/uL [facility] eah WBC (Bld) [#/Vol] 13.22 10*3/uL [facility] APTTon 01-18-2019 aPTT Coag (Bld) [Time] 65 s [facility] Interpretation and review of laboratory results Abnormal [facility] Therapeutic range fo r APTT's is 68 - 104 seconds [facility] aPTT Coag (Bld) [Time] 55 s High [facility] Interpretation and review of laboratory results Abnormal [facility] Therapeutic range fo r APTT's is 68 - 104 seconds [facility] aPTT Coag (Bld) [Time] 31 s [facility] Interpretation and review of laboratory results Normal [facility] Therapeutic range fo r APTT's is 68 - 104 seconds [facility] Basic Metabolic Panelon - Anion gap [Moles/Vol] 9 mmol/L Low 10 - 2 0 mmol/L [facility] Calcium [Mass/Vol] 8.1 mg/dL Low 8.4 - 10. 2 mg/dL [facility] Chloride [Moles/Vol] 109 mmol/L High 98 - 10 8 mmol/L [facility] Creatinine [Mass/Vol] 1.11 mg/dL 0.5 - 1.3 mg/dL [facility] GFR/1.73 sq M.predicted CKD-EPI (S/P/Bld) [Vol rate/Area] 79 >=60 mL/min/1.73 m2 [facility] Glucose [Mass/Vol] 125 mg/dL High 65 - 99 mg/dL [facility] HCO3 [Moles/Vol] 24 mmol/L 21 - 32 mmol/L [facility] Potassium [Moles/Vol] 4.0 mmol/L 3.5 - 5.1 mmol/L [facility] Sodium [Moles/Vol] 138 mmol/L 135 - 145 mmol/L [facility] Urea nitrogen [Mass/Vol] 22 mg/dL 8 - 25 mg/dL [facility] Urea nitrogen/Creatinine [Mass ratio] 19.8 mg/mg [facility] The eGFR should be u sed for monitoring renal function only and not for medication dosing. [facility] CBCon 01-17-2019 Erythrocyte distribution width (RBC) [Entitic vol] 14.1 % 11.6 - 14.8 % [facility] Hematocrit (Bld) [Volume fraction] 38.7 % Low 41 - 53 % [facility] Hemoglobin (Bld) [Mass/Vol] 12.8 g/dL Low 13.5 - 17.5 g/dL [facility] Interpretation and review of laboratory results Abnormal [facility] MCH (RBC) [Entitic mass] 28.4 pg 26 - 34 pg [facility] MCHC (RBC) [Mass/Vol] 33.1 g/dL 31 - 37 g/dL [facility] (RBC) [Entitic vol] 85.8 fL 80 - 100 fL [facility] Nucleated RBC (Bld) [#/Vol] 0.00 10*3/uL [facility] Nucleated RBC/100 WBC (Bld) [Ratio] 0.0 % [facility] Platelet mean volume (Bld) [Entitic vol] 9.9 fL 9 - 15.5 fL [facility] Platelets (Bld) [#/Vol] 227 10*3/uL [facility] RBC (Bld) [#/Vol] 4.51 10*6/uL [facility] ealth WBC (Bld) [#/Vol] 11.26 10*3/uL [facility] CBC WITH AUTO DIFFERENTIALon 01-17-2019 Basophils (Bld) [#/Vol] 0.08 10*3/uL [facility] Basophils/100 WBC (Bld) 0.7 % [facility] Eosinophils (Bld) [#/Vol] 0.64 10*3/uL High [facility] Eosinophils/100 WBC (Bld) 5.3 % [facility] Erythrocyte distribution width (RBC) [Entitic vol] 14.0 % 11.6 - 14.8 % [facility] Hematocrit (Bld) [Volume fraction] 41.5 % 41 - 53 % [facility] Hemoglobin (Bld) [Mass/Vol] 13.6 g/dL 13.5 - 17.5 g/dL [facility] Immature granulocytes (Bld) [#/Vol] 0.08 10*3/uL [facility] Immature granulocytes/100 WBC (Bld) 0.70 % [facility] Comment on above: The IG parameter is the percentage of metamyelocytes, myelocytes, and promyelocytes. Interpretation and review of laboratory results Abnormal [facility] Lymphocytes (Bld) [#/Vol] 3.37 10*3/uL [facility] Lymphocytes/100 WBC (Bld) 27.9 % [facility] MCH (RBC) [Entitic mass] 28.0 pg 26 - 34 pg [facility] MCHC (RBC) [Mass/Vol] 32.8 g/dL 31 - 37 g/dL [facility] MCV (RBC) [Entitic vol] 85.6 fL 80 - 100 fL [facility] Monocytes (Bld) [#/Vol] 1.02 10*3/uL [facility] Monocytes/100 WBC (Bld) 8.4 % [facility] Neutrophils (Bld) [#/Vol] 6.89 10*3/uL [facility] Neutrophils/100 WBC (Bld) 57.0 % [facility] Nucleated RBC (Bld) [#/Vol] 0.00 10*3/uL [facility] Nucleated RBC/100 WBC (Bld) [Ratio] 0.0 % [facility] Platelet mean volume (Bld) [Entitic vol] 10.0 fL 9 - 15.5 fL [facility] Platelets (Bld) [#/Vol] 269 10*3/uL [facility] RBC (Bld) [#/Vol] 4.85 10*6/uL [facility] ealth WBC (Bld) [#/Vol] 12.08 10*3/uL [facility] D-DIMER, QUANTITATIVEon 12-0 Fibrin D-dimer FEU (PPP) [Mass/Vol] <0.27 0.27 - 0.49 mcg/mL FEU [facility] Interpretation and review of laboratory results Normal [facility] A D-dimer concentrat ion of <0.5 micrograms per milliliter FEU is considered a low probability for pulmonary embolus (PE) and deep venous thrombosis (DVT). Results of this test should always be interpreted in conjunction with the patient's medical history,clinical presentation, and other findings. Clinical diagnosis should not be based on the results of the D-dimer alone. [facility] Fibrin D-dimer FEU (PPP) [Mass/Vol] 0.30 0.27 - 0.49 mcg/mL FEU [facility] Interpretation and review of laboratory results Normal [facility] A D-dimer concentrat ion of <0.5 micrograms per milliliter FEU is considered a low probability for pulmonary embolus (PE) and deep venous thrombosis (DVT). Results of this test should always be interpreted in conjunction with the patient's medical history,clinical presentation, and other findings. Clinical diagnosis should not be based on the results of the D-dimer alone. [facility] ECG 12-LEADon 01-17-2019 Atrial Rate 73 BPM [facility] P [place] 67 degrees [facility] P-R Interval 164 ms [facility] Q-T Interval 386 ms [facility] QRS Duration 86 ms [facility] QTC Calculation (Bezet) 425 ms O [facility] R [place] 2 degrees [facility] T [place] 65 degrees [facility] Ventricular Rate 73 BPM [facility] th Normal sinus rhythm Low voltage QRS Inferior infarct , age undetermined Cannot rule out Anteroseptal infarct , age undetermined Abnormal ECG ECG Cart Interpretation see physician note for interpretation. Confirmed by Brandy Kc ([id number]) on 01/17/2019 12:18:52 PM [facility] Hepatic Function Panel (LFT) on 01-17-2019 Albumin [Mass/Vol] 3.1 g/dL Low 3.2 - 5.2 g/dL [facility] ALP [Catalytic activity/Vol] 75 U/L 40 - 150 U/L [facility] ALT [Catalytic activity/Vol] 67 U/L High 14 - 65 U/L [facility] AST [Catalytic activity/Vol] 28 U/L 0 - 45 U/L [facility] Bilirubin [Mass/Vol] 0.9 mg/dL 0 - 1.3 mg/dL [facility] Bilirubin.conjugated [Mass/Vol] 0.2 mg/dL 0 - 0.4 mg/dL [facility] Protein [Mass/Vol] 6.2 g/dL 6 - 8 g/dL [facility] alth Lactic Acid, Plasmaon 2018 Interpretation and review of laboratory results Normal [facility] Lactate [Moles/Vol] 1.2 mmol/L 0.6 - 2 mmol/L [facility] Lipaseon 01-17-2019 Lipase [Catalytic activity/Vol] 89 U/L 73 - 393 U/L [facility] NT Pro BNPon 01-17-2019 Natriuretic peptide.B prohormone N-Terminal [Mass/Vol] 123 pg/mL 0 - 300 pg/mL [facility] Comment on above: Please note referenc e range change as of 01/30/18. [employer] Study Cut-offs Rule In: < /= 50 Years >450 pg/mL 51 Years - 75 Years >900 pg/mL 76 Years - 99 Years >1800 pg/mL Rule Out: All patients <300 pg/mL [facility] Otheron 01-17-2019 Interpretation and review of laboratory results Abnormal [facility] Interpretation and review of laboratory results Normal [facility] PT/INRon 01-17-2019 INR Coag (PPP) [Relative time] 1.0 {INR} [facility] Interpretation and review of laboratory results Normal [facility] PT Coag (PPP) [Time] 12.[address] [facility] During the induction phase of oral anticoagulation, the INR may not reflect the anticoagulation status of the patient. Therapeutic ranges for INR's are: Most clinical situations: INR 2.0-3.0 Mechanical Prosthetic Valve: INR 2.5-3.5 Critical: INR >5.0 [facility] TROPONINon 01-17-2019 Troponin I.cardiac [Mass/Vol] ng/mL <=45 ng/L [facility] Troponin I.cardiac [Mass/Vol] No biomarker evidence of cardiac injury. [facility] Troponin I.cardiac [Mass/Vol] No biomarker evidence of cardiac injury. [facility] Troponin I.cardiac [Mass/Vol] ng/mL <=45 ng/L [facility] Troponin I.cardiac [Mass/Vol] ng/mL <=45 ng/L [facility] Troponin I.cardiac [Mass/Vol] Normal [facility] URINALYSISon 01-17-2019 Bacteria Auto Ql (U) None Seen None Se en /hpf [facility] Bilirubin Ql (U) Negative Negative [facility] th Clarity Refractometry automated (U) Clear Clear [facility] Color (U) Yellow Colorless, Yellow [facility] Glucose Auto test strip (U) [Mass/Vol] Negative Negative mg/dL [facility] Hemoglobin Auto test strip Ql (U) Negative Negative [facility] Interpretation and review of laboratory results Normal [facility] Ketones (U) [Mass/Vol] Negative Negat bryan mg/dL [facility] Leukocyte esterase Auto test strip Ql (U) Negative Negative [facility] Nitrite Auto test strip Ql (U) Negative Negative [facility] pH (U) 6.0 [pH] [facility] Protein (U) [Mass/Vol] Negative Negat bryan mg/dL [facility] Specific gravity (U) [Rel density] 1.019 [facility] Urobilinogen (U) [Mass/Vol] <2.0 <2.0 mg/dL [facility] WBC Auto (Urine sed) [#/Area] <1 [facility] Microscopic examinat ion is performed on all urinalysis samples and only positive findings are reported. The test for blood on the chemical analytic portion of urinalysis may also be positive due to hemoglobinuria and myoglobinuria and if red blood cells are present they are quantified by microscopic examination. [facility] XR Chest 1 Viewon 01-17-2019 No acute cardiopulmonary process. [employer] Workstation ID: [id number] [facility] Interface, Rad In Fu ji Speechq - [...] is unremarkable. IMPRESSION: No acute cardiopulmonary process. [employer] Workstation ID: [id number] [facility] EXAMINATION: XR CHES T PA/AP HISTORY: ORDERING SYSTEM PROVIDED HISTORY: chest pain, TECHNOLOGIST PROVIDED HISTORY: Illness/Other Reason for exam: chest pain Cancer History: u Surgery, RadiationHistory: yes Encounter Type: Initial Additional signs and symptoms: unknown ORDERING SYSTEM PROVIDED DIAGNOSIS CODES: COMPARISON: 01/04/2019. FINDINGS: One-view chest x-ray. No pneumothorax, pleural effusion or focal airspace consolidation. Heart is normal in size. Bony thorax is unremarkable. [facility] ECG 12-LEADon 01-04-2019 Brian Cordoba MD 01/04/2019 7:49 PM ECG 12- Lead Date/Time: 01/04/2019 6:25 PM Performed by: Brian Cordoba MD Authorized by: Brian Cordoba MD Rhythm: sinus rhythm BPM: 75 Comments: Normal sinus rhythm at rate of 75 bpm low voltage QRS; QTC 4 4 4 ms; [facility] POC B-type natriuretic pepti de (BNP)on 01-04-2019 Interpretation and review of laboratory results Normal [facility] Natriuretic peptide B (Bld) [Mass/Vol] 42.1 pg/mL <100 [facility] POC Basic Metabolic Panelon 01-04-2019 Calcium.ionized (Bld) [Mass/Vol] 4.8 mg/dL 4.5 - 5.3 mg/dL [facility] Chloride [Moles/Vol] 102 mmol/L 98 - 10 8 mmol/L [facility] CO2 [Moles/Vol] 27 mmol/L 21 - 32 mmol/L [facility] Creatinine [Mass/Vol] 0.95 mg/dL 0.5 - 1.3 mg/dL [facility] GFR/1.73 sq M.predicted MDRD (S/P/Bld) [Vol rate/Area] 95 mL/min/{1.73_m2} >=60 mL/min/1.73 m2 [facility] Glucose [Mass/Vol] 123 mg/dL High 65 - 99 mg/dL [facility] Interpretation and review of laboratory results Abnormal [facility] Potassium [Moles/Vol] 4.0 mmol/L 3.5 - 5.1 mmol/L [facility] Sodium [Moles/Vol] 141 mmol/L 135 - 145 mmol/L [facility] Urea nitrogen [Mass/Vol] 23 mg/dL 8 - 25 mg/dL [facility] POC CBC and Differentialon 1 03-06-2018 Erythrocyte distribution width (RBC) [Entitic vol] 14.8 % 11.6 - 14.8 % [facility] Hematocrit (Bld) [Volume fraction] 43.1 % 41 - 53 % [facility] Hemoglobin (Bld) [Mass/Vol] 14.3 g/dL 13.5 - 17.5 g/dL [facility] Interpretation and review of laboratory results Abnormal [facility] Lymphocytes (Bld) [#/Vol] 3.0 10*3/uL [facility] Lymphocytes/100 WBC (Bld) 25.9 % [facility] MCH (RBC) [Entitic mass] 28.4 pg 26 - 34 pg [facility] MCHC (RBC) [Mass/Vol] 33.2 g/dL 31 - 37 g/dL [facility] MCV (RBC) [Entitic vol] 85.5 fL 80 - 100 fL [facility] Mixed 10.6 % [facility] Mixed Abs 1.2 K/mcl [facility] Neutrophil Abs 7.3 High [facility] Neutrophils/100 WBC (Bld) 63.5 % [facility] Platelet mean volume (Bld) [Entitic vol] 10.6 fL 9 - 15.5 fL [facility] Platelets (Bld) [#/Vol] 289 10*3/uL [facility] RBC (Bld) [#/Vol] 5.04 10*6/uL [facility] ealth WBC (Bld) [#/Vol] 11.50 10*3/uL High [facility] POC D-dimeron 01-04-2019 Fibrin D-dimer DDU (PPP) [Mass/Vol] <100 <350 ng/mL DDU [facility] Interpretation and review of laboratory results Normal [facility] A D-Dimer concentrat ion of <350 ng/mL [...] normal patients are less than 400 ng/ml. [facility] POC Liver Panel Pluson 01-04 Albumin [Mass/Vol] 3.4 g/dL 3.2 - 5.2 g/dL [facility] ALP [Catalytic activity/Vol] 83 U/L 40 - 150 U/L [facility] ALT [Catalytic activity/Vol] 52 U/L High 0 - 40 U/L [facility] Amylase [Catalytic activity/Vol] 42 U/L 25 - 115 U/L [facility] AST [Catalytic activity/Vol] 34 U/L 0 - 45 U/L [facility] Bilirubin [Mass/Vol] 0.8 mg/dL 0 - 1.3 mg/dL [facility] Gamma glutamyl transferase [Catalytic activity/Vol] 28 U/L 11 - 51 U/L [facility] Interpretation and review of laboratory results Abnormal [facility] Protein [Mass/Vol] 6.5 g/dL 6 - 8 g/dL [facility] POC Troponin Ion 01-04-2019 Interpretation and review of laboratory results Normal [facility] Troponin I.cardiac [Mass/Vol] ng/mL <0.05 ng/mL [facility] XR CHEST AP/PA AND LATon Interface, Rad [...] IMPRESSION: Nonacute two-view chest. Workstation ID: [id number] [facility] EXAMINATION: XR CHES T AP/PA AND LAT [...] The diaphragm and bony elements are intact. [facility] Nonacute two-view chest. Workstation ID: [id number] [facility] NT PRO BNPon 12-26-2018 Interpretation and review of laboratory results Normal [facility] Natriuretic peptide.B prohormone N-Terminal [Mass/Vol] 58 pg/mL 0 - 300 pg/mL [facility] Comment on above: Please note referenc e range change as of 01/30/18. [employer] Study Cut-offs Rule In: < /= 50 Years >450 pg/mL 51 Years - 75 Years >900 pg/mL 76 Years - 99 Years >1800 pg/mL Rule Out: All patients <300 pg/mL [facility] MR Cardiac (Pluck Separator Juana cheng) w/Monica Flowon 12-25-2018 [facility] CMR Repor t Name: FERNANDO HELTON : 1970 Scan Date: 2018-12-25 13:56:00 Electronically signed by Gilmer Eduardo 17:14:21 SUMMARY INDICATION: Cardiac MRI with gadolinium contrast was [...] pericardium. No significant pericardial effusion. CORE EXAM MEASUREMENTS VOLUMETRIC ANALYSIS . . LV Reference RV Reference +------+ +--- ---+ +------ + + EDV ml 134 (117-200) 120 (116-216) ml/m^2 61.2 (64-99) 54.8 (62-108) ESV ml 64 (31-76) 52 (29-89) ml/m^2 29.2 (17-38) 23.7 (16-45) CO L/min 5.53 5.37 L/min/m^2 2.5 2.5 MASS g 165 (108-185) g/m^2 75.3 (58-91) SV ml 70 (77-133) 68 (73-141) ml/m^2 32.0 (42-66) 31.1 (39-71) EF % 52 (58-75) 57 (52-77) '------+ +--- ---+ +------ + ' CARDIAC OUTPUT HR: 79 bpm LV DIMENSIONS [...] Wall Motion Hyperenhancement Stress Perfusion Interpretation + +- +-------- + ------+ + Base Anterior Normal/Hyper None Base Anteroseptal [...] Hypo 51-75% Apical Lateral Mild/Mod Hypo 51-75% [place] Severe Hypo 51-75% + +- +-------- + ------+ + RV Segments Wall Motion Hyperenhancement Stress Perfusion Interpretation + +- +-------- + ------+ + RV Basal Anterior Normal/Hyper None RV Basal Inferior Normal/Hyper None RV Mid Normal/Hyper None RV Apical Normal/Hyper None ' +- +-------- + ------+ ' FINDINGS INFARCT/SCAR SIZE: 22 % SCAN INFO GENERAL SEDATION SEDATION USED?: No CONTRAST AGENT TYPE: Dotarem VOLUME ADMINISTERED: 40 ml DOSAGE FOR 0.5M: 0.18 mmol/kg SERUM CREATININE: 1.20 sCr GFR: 68.98 ml/min/1.73m^2 CREATININE DATE: 2018-09-27 00:00:00 VITALS HEIGHT: 66.00 in HEIGHT: 167.64 cm WEIGHT: 248.00 lbs WEIGHT: 112.49 kgs BSA: 2.19 m^2 SETUP TYPE: Clinical INPATIENT: No LOCATION: [facility] INCOMPLETE SCAN: No REASON(S) FOR SCAN: Cardiomyopathy, Thrombus (evaluate for) REFERRING PHYSICIAN: PATRICIA LOUIS ATTENDING PHYSICIAN: GILMER EDUARDO TECHNOLOGIST: Vidhi Escobar Patient Account [id number] CPT Codes 34133 ICD10 Codes I50.22 Report generated by [employer], a product of [employer] [facility] Interface, Rad In [facility] Echopacs - 12/25/2018 5:14 PM [facility] CMR Report Name: FERNANDO HELTON : 1970 Scan Date: 2018-12-25 13:56:00 Electronically signed by Gilmer Eduardo 17:14:21 SUMMARY ====== ======== INDICATION: Cardiac MRI with gadolinium contrast was [...] No significant pericardial effusion. CORE EXAM ====== ======== MEASUREMENTS ------ VOLUMETRIC ANALYSIS . . LV Reference RV Reference +------+ +--- ---+ +------ + + EDV ml 134 (117-200) 120 (116-216) ml/m^2 61.2 (64-99) 54.8 (62-108) ESV ml 64 (31-76) 52 (29-89) ml/m^2 29.2 (17-38) 23.7 (16-45) CO L/min 5.53 5.37 L/min/m^2 2.5 2.5 MASS g 165 (108-185) g/m^2 75.3 (58-91) SV ml 70 (77-133) 68 (73-141) ml/m^2 32.0 (42-66) 31.1 (39-71) EF % 52 (58-75) 57 (52-77) '------+ +--- ---+ +------ + ' CARDIAC OUTPUT HR: 79 bpm LV DIMENSIONS [...] VISUAL EJECTION FRACTION: 50 % 17 SEGMENT ------ . ------ . Segments Wall Motion Hyperenhancement Stress Perfusion Interpretation + +- +-------- + ------ + + Base Anterior Normal/Hyper None Base [...] Hypo 51-75% Apical Lateral Mild/Mod Hypo 51-75% [place] Severe Hypo 51-75% + +- +-------- + ------ + + RV Segments Wall Motion Hyperenhancement Stress Perfusion Interpretation + +- +-------- + ------ + + RV Basal Anterior Normal/Hyper None RV Basal Inferior Normal/Hyper None RV Mid Normal/Hyper None RV Apical Normal/Hyper None ' +- +-------- + ------ + ' FINDINGS INFARCT/SCAR SIZE: 22 % SCAN INFO ====== ======== GENERAL ------ SEDATION SEDATION USED?: No CONTRAST AGENT TYPE: Dotarem VOLUME ADMINISTERED: 40 ml DOSAGE FOR 0.5M: 0.18 mmol/kg SERUM CREATININE: 1.20 sCr GFR: 68.98 ml/min/1.73m^2 CREATININE DATE: 2018-09-27 00:00:00 VITALS HEIGHT: 66.00 in HEIGHT: 167.64 cm WEIGHT: 248.00 lbs WEIGHT: 112.49 kgs BSA: 2.19 m^2 SETUP TYPE: Clinical INPATIENT: No LOCATION: [facility] INCOMPLETE SCAN: No REASON(S) FOR SCAN: Cardiomyopathy, Thrombus (evaluate for) REFERRING PHYSICIAN: PATRICIA LOUIS ATTENDING PHYSICIAN: GILMER EDUARDO TECHNOLOGIST: Vidhi Escobar ------ Patient Account [id number] CPT Codes 85737 ICD10 Codes I50.22 Report generated by [employer], a product of [employer] [facility] ECHOCARDIOGRAM 2D COMPLETEon 12-10-2018 Transthoracic Echocardiogram _ Patient: KYLE Hernandez [facility] Rec#: [id number] (Age): 1970(48y) Height: 167.64(cm)/65(i Study Date: 12/10/2018 Weight: 112.49(kg)/247( Room#: BSA: [id number] Type: Loc: Sex: M _ Reading: Magda Durán MD Referring: Moises Patel M.D Ordering ProvidTruax, Kathryn CNS [employer] Driver: Mariann Syed RN RDCS History: COPD. Coronary [...] at 12/10/2018 17:14:17 by: Magda Durán MD [facility] Interface, Rad In [facility] [employer]ch[employer] - 12/10/2018 5:28 PM EDT Transthoracic Echocardiogram _ Patient: KYLE Hernandez [facility] Rec#: [id number] (Age): 1970(48y) Height: 167.64(cm)/65(i Study Date: 12/10/2018 Weight: 112.49(kg)/247( Room#: BSA: [id number] Type: Loc: Sex: M _ Reading: Magda Durán MD Referring: Moises Patel M.D Ordering ProvidTruax, Kathryn CNS [employer] Driver: Mariann Syed RN RDCS History: COPD. Coronary [...] at 12/10/2018 17:14:17 by: Magda Durán MD [facility] EKGon 09-28-2018 Ordered by an unspecified provider. [facility] CBC WITH AUTO DIFFERENTIALon 09-27-2018 Basophils (Bld) [#/Vol] 0.09 10*3/uL [facility] Basophils/100 WBC (Bld) 0.7 % [facility] Eosinophils (Bld) [#/Vol] 0.82 10*3/uL High [facility] Eosinophils/100 WBC (Bld) 6.2 % [facility] Erythrocyte distribution width (RBC) [Entitic vol] 14.7 % 11.6 - 14.8 % [facility] Hematocrit (Bld) [Volume fraction] 44.7 % 41 - 53 % [facility] Hemoglobin (Bld) [Mass/Vol] 14.7 g/dL 13.5 - 17.5 g/dL [facility] Immature granulocytes (Bld) [#/Vol] 0.08 10*3/uL [facility] Immature granulocytes/100 WBC (Bld) 0.60 % [facility] Comment on above: The IG parameter is the percentage of metamyelocytes, myelocytes, and promyelocytes. Interpretation and review of laboratory results Abnormal [facility] Lymphocytes (Bld) [#/Vol] 4.45 10*3/uL High [facility] Lymphocytes/100 WBC (Bld) 33.4 % [facility] MCH (RBC) [Entitic mass] 27.6 pg 26 - 34 pg [facility] MCHC (RBC) [Mass/Vol] 32.9 g/dL 31 - 37 g/dL [facility] MCV (RBC) [Entitic vol] 83.9 fL 80 - 100 fL [facility] Monocytes (Bld) [#/Vol] 1.10 10*3/uL [facility] Monocytes/100 WBC (Bld) 8.3 % [facility] Neutrophils (Bld) [#/Vol] 6.79 10*3/uL [facility] Neutrophils/100 WBC (Bld) 50.8 % [facility] Nucleated RBC (Bld) [#/Vol] 0.00 10*3/uL [facility] Nucleated RBC/100 WBC (Bld) [Ratio] 0.0 % [facility] Platelet mean volume (Bld) [Entitic vol] 10.6 fL 9 - 15.5 fL [facility] Platelets (Bld) [#/Vol] 288 10*3/uL [facility] RBC (Bld) [#/Vol] 5.33 10*6/uL [facility] ealt WBC (Bld) [#/Vol] 13.33 10*3/uL [facility] ECG 12-LEADon 09-27-2018 Atrial Rate 90 BPM [facility] P [place] 62 degrees [facility] P-R Interval 164 ms [facility] Q-T Interval 348 ms [facility] QRS Duration 94 ms [facility] QTC Calculation (Bezet) 425 ms [facility] [place] 0 degrees [facility] T [place] 72 degrees [facility] Ventricular Rate 90 BPM [facility] th Normal sinus rhythm Low voltage QRS Cannot rule out Anteroseptal infarct , age undetermined Abnormal ECG ECG Cart Interpretation see physician note for interpretation. Confirmed by Brandy Kc ([id number]) on 09/27/2018 8:20:21 PM [facility] Nathanael Valencia MD 09/27/2018 10:00 PM ECG 12 Lead Date/Time: 09/27/2018 7:16 PM Performed by: Nathanael Valencia MD Authorized by: Nathanael Valencia MD Comparison: not compared with previous ECG Rhythm: sinus rhythm BPM: 90 Conduction: conduction normal ST Segments: ST segments normal T Waves: T waves normal Clinical impression: non-specific ECG Comments: No acute ischemic changes [facility] POC B-type natriuretic pepti de (BNP)on 09-27-2018 Interpretation and review of laboratory results Normal [facility] Natriuretic peptide B (Bld) [Mass/Vol] 19.0 pg/mL <100 [facility] POC Basic Metabolic Panelon 09-27-2018 Calcium [Mass/Vol] 9.5 mg/dL 8.4 - 10. 2 mg/dL [facility] Chloride [Moles/Vol] 106 mmol/L 98 - 10 8 mmol/L [facility] CO2 [Moles/Vol] 25 mmol/L 21 - 32 mmol/L [facility] Creatinine [Mass/Vol] 1.0 mg/dL 0.5 - 1.3 mg/dL [facility] Glucose [Mass/Vol] 140 mg/dL High 65 - 99 mg/dL [facility] Interpretation and review of laboratory results Abnormal [facility] Potassium [Moles/Vol] 3.4 mmol/L Low 3.5 - 5.1 mmol/L [facility] Sodium [Moles/Vol] 139 mmol/L 135 - 145 mmol/L [facility] Urea nitrogen [Mass/Vol] 20 mg/dL 8 - 25 mg/dL [facility] POC CBC and Differentialon 0 09-27-2018 Comment See Comment Critically abnormal (none) [facility] Comment on above: CRITICAL. CBCD reord ered and sent to . Possible presence of immature granulocytes present. Automated differential not reported. Erythrocyte distribution width (RBC) [Entitic vol] 15.4 % High 11.6 - 14.8 % [facility] Hematocrit (Bld) [Volume fraction] 45.1 % 41 - 53 % [facility] Hemoglobin (Bld) [Mass/Vol] 15.0 g/dL 13.5 - 17.5 g/dL [facility] Interpretation and review of laboratory results Abnormal [facility] MCH (RBC) [Entitic mass] 28.5 pg 26 - 34 pg [facility] MCHC (RBC) [Mass/Vol] 33.3 g/dL 31 - 37 g/dL [facility] MCV (RBC) [Entitic vol] 85.6 fL 80 - 100 fL [facility] Platelet mean volume (Bld) [Entitic vol] 10.4 fL 9 - 15.5 fL [facility] Platelets (Bld) [#/Vol] 285 10*3/uL [facility] RBC (Bld) [#/Vol] 5.27 10*6/uL [facility] ealt WBC (Bld) [#/Vol] 13.50 10*3/uL [facility] POC D-dimeron 09-27-2018 Fibrin D-dimer DDU (PPP) [Mass/Vol] <100 <350 ng/mL DDU [facility] Interpretation and review of laboratory results Normal [facility] A D-Dimer concentrat ion of <350 ng/mL [...] normal patients are less than 400 ng/ml. [facility] POC Troponin Ion 09-27-2018 Interpretation and review of laboratory results Normal [facility] Troponin I.cardiac [Mass/Vol] ng/mL <0.05 ng/mL [facility] Interpretation and review of laboratory results Normal [facility] Troponin I.cardiac [Mass/Vol] ng/mL <0.05 ng/mL [facility] XR Chest 1 Viewon 09-27-2018 Negative acute lorin ble chest. [employer]/ads Workstation ID: [id number] [facility] EXAMINATION: XR CHES T PA/AP HISTORY: chest pain COMPARISON: Correlation is made with previous single-view chest 01/08/2018. FINDINGS: Portable AP view of the chest is provided. The cardiomediastinal silhouette is stable. A coronary stent is noted. Lungs are free of focal infiltrate. There is no pleural effusion or pneumothorax present. Bones appear unremarkable. [facility] Interface, Rad In Fu ji Speechq - [...] acute portable chest. BAB/ads Workstation ID: [id number] [facility] CBC with Diffon 01-09-2018 Basophils #/vol (Bld) 0.1 K/mcL Normal 0-0.2 [facility] Comment on above: Performed By: #### F SBNP #### Unless otherwise noted, all testing performed by [place] [address] CLIA: [id number] Manager Support Services: Twin Marley M.D. Basophils/100 WBC (Bld) 1.2 % Normal [facility] Comment on above: Performed By: #### F SBNP #### Unless otherwise noted, all testing performed by [place] [address] CLIA: [id number] Manager Support Services: Twin Marley M.D. Eosinophils #/vol (Bld) 0.5 K/mcL Normal 0-0.5 [facility] Comment on above: Performed By: #### F SBNP #### Unless otherwise noted, all testing performed by [place] [address] CLIA: [id number] Manager Support Services: Twin Marley M.D. Eosinophils/100 WBC (Bld) 4.4 % Normal [facility] Comment on above: Performed By: #### F SBNP #### Unless otherwise noted, all testing performed by [place] [address] CLIA: [id number] Manager Support Services: Twin Marley M.D. Erythrocyte distribution width Ratio (RBC) 14.8 % High 10-14.[address] [facility] Comment on above: Performed By: #### F SBNP #### Unless otherwise noted, all testing performed by [place] [address] CLIA: [id number] Manager Support Services: Twin Marley M.D. Hematocrit Volume Fraction (Bld) 44.7 % Normal 37.9-49.[address] [facility] Comment on above: Performed By: #### F SBNP #### Unless otherwise noted, all testing performed by [place] [address] CLIA: [id number] Manager Support Services: Twin Marley M.D. Hemoglobin mass conc (Bld) 14.7 g/dL Normal 12.9-16.[address] [facility] Comment on above: Performed By: #### F SBNP #### Unless otherwise noted, all testing performed by [place] [phone] CLIA: [id number] Manager Support Services: Twin Marley M.D. Lymphocytes #/vol (Bld) 4.4 K/mcL High 0.9-3.6 [facility] Comment on above: Performed By: #### F SBNP #### Unless otherwise noted, all testing performed by [place] [phone] CLIA: [id number] Manager Support Services: Twin Marley M.D. Lymphocytes/100 WBC (Bld) 38.3 % Normal [facility] Comment on above: Performed By: #### F SBNP #### Unless otherwise noted, all testing performed by [place] [address] CLIA: [id number] Manager Support Services: Twin Marley M.D. MCH Entitic mass (RBC) 27.7 pg Normal 27.7-34.6 [facility] Comment on above: Performed By: #### F SBNP #### Unless otherwise noted, all testing performed by [facility] [place] [address] CLIA: [id number] Manager Support Services: Twin Marley M.D. MCHC mass conc (RBC) 32.8 g/dL Low 32.9-35.5 [facility] Comment on above: Performed By: #### F SBNP #### Unless otherwise noted, all testing performed by [place] [phone] CLIA: [id number] Manager Support Services: Twin Marley M.D. MCV Entitic volume (RBC) 84.5 fL Normal 82.8-99.[address] [facility] Comment on above: Performed By: #### F SBNP #### Unless otherwise noted, all testing performed by [place] [phone] CLIA: [id number] Manager Support Services: Twin Marley M.D. Monocytes #/vol (Bld) 0.8 K/mcL High 0.2-0.6 [facility] Comment on above: Performed By: #### F SBNP #### Unless otherwise noted, all testing performed by [place] [phone] CLIA: [id number] Manager Support Services: Twin Marley M.D. Monocytes/100 WBC (Bld) 6.6 % Normal [facility] Comment on above: Performed By: #### F SBNP #### Unless otherwise noted, all testing performed by [place] [phone] CLIA: [id number] Manager Support Services: Twin Marley M.D. Neutrophils #/vol (Bld) 5.7 K/mcL Normal 1.4-6.8 [facility] Comment on above: Performed By: #### F SBNP #### Unless otherwise noted, all testing performed by [place] [address] CLIA: [id number] Manager Support Services: Twin Marley M.D. Platelet mean volume Entitic volume (Bld) 8.7 fL Normal 6.6-10.[address] [facility] Comment on above: Performed By: #### F SBNP #### Unless otherwise noted, all testing performed by [place] [phone] CLIA: [id number] Manager Support Services: Twin Marley M.D. Platelets #/vol (Bld) 266 K/mcL Normal 139-354 [facility] Comment on above: Performed By: #### F SBNP #### Unless otherwise noted, all testing performed by [place] [phone] CLIA: [id number] Manager Support Services: Twin Marley M.D. RBC #/vol (Bld) 5.30 M/mcL Normal 4.0-5.5 [facility] Comment on above: Performed By: #### F SBNP #### Unless otherwise noted, all testing performed by [place] [address] CLIA: [id number] Manager Support Services: Twin Marley M.D. Segmented Neut % 49.5 % Normal [facility] Comment on above: Performed By: #### F SBNP #### Unless otherwise noted, all testing performed by [place] [address] CLIA: [id number] Manager Support Services: Twin Marley M.D. WBC #/vol (Bld) 11.6 K/mcL High 3.6-10.4 [facility] Comment on above: Performed By: #### F SBNP #### Unless otherwise noted, all testing performed by [place] [address] CLIA: [id number] Manager Support Services: Twin Marley M.D. CHEMG (Basic Metabolic and M g)on 01-09-2018 Calcium mass conc 8.4 mg/dL Normal 8.4-10.2 [facility] Comment on above: Performed By: #### F SBNP #### Unless otherwise noted, all testing performed by [place] [address] CLIA: [id number] Manager Support Services: Twin Marley M.D. Chloride molar conc 103 mmol/L Normal 98-108 [facility] Comment on above: Performed By: #### F SBNP #### Unless otherwise noted, all testing performed by [place] [address] CLIA: [id number] Manager Support Services: Twin Marley M.D. CO2 molar conc 27 mmol/L Normal 21-[address] [facility] Comment on above: Performed By: #### F SBNP #### Unless otherwise noted, all testing performed by [place] [address] CLIA: [id number] Manager Support Services: Twin Marley M.D. Creatinine mass conc 1.14 mg/dL Normal 0.50-1.30 [facility] Comment on above: Performed By: #### F SBNP #### Unless otherwise noted, all testing performed by [facility] [place] [address] CLIA: [id number] Manager Support Services: Twin Marley M.D. GFR/1.73 sq M predicted among blacks MDRD vol rate/area (S/P/Bld) mL/min/{1.73_m2} Normal [facility] Comment on above: Result Comment: Afri can [place] GFR Calc Performed By: #### F SBNP #### Unless otherwise noted, all testing performed by [place] [address] CLIA: [id number] Manager Support Services: Twin Marley M.D. GFR/1.73 sq M predicted among non-blacks MDRD vol rate/area (S/P/Bld) mL/min/{1.73_m2} Normal [facility] Comment on above: Result Comment: Non- [...] Unless otherwise noted, all testing performed by [place] [address] CLIA: [id number] Manager Support Services: Twin Marley M.D. Glucose mass conc 102 mg/dL High 70-99 [facility] Comment on above: Result Comment: This test result might be falsely depressed or falsely elevated on samples drawn from patients taking Sulfasalazine and Sulfapyridine. Venipuncture should occur prior to taking either of these drugs. Performed By: #### F SBNP #### Unless otherwise noted, all testing performed by [place] [address] CLIA: [id number] Manager Support Services: Twin Marley M.D. Magnesium mass conc 2.2 mg/dL Normal 1.6-2.4 [facility] Comment on above: Performed By: #### F SBNP #### Unless otherwise noted, all testing performed by [place] [address] CLIA: [id number] Manager Support Services: Twin Marley M.D. Potassium molar conc 4.2 mmol/L Normal 3.5-5.1 [facility] Comment on above: Performed By: #### F SBNP #### Unless otherwise noted, all testing performed by [place] [address] CLIA: [id number] Manager Support Services: Twin Marley M.D. Sodium molar conc 138 mmol/L Normal 135-145 [facility] Comment on above: Performed By: #### F SBNP #### Unless otherwise noted, all testing performed by [place] [address] CLIA: [id number] Manager Support Services: Twin Marley M.D. Urea nitrogen mass conc 20 mg/dL Normal 8-25 [facility] Comment on above: Performed By: #### F SBNP #### Unless otherwise noted, all testing performed by [place] [address] CLIA: [id number] Manager Support Services: Twin Marley M.D. Cardiac Troponin-Ion 11-28-2 018 Troponin I.cardiac mass conc No Biomarker evidence of myocardial injury within the past 14 hours. Normal [facility] Comment on above: Performed By: #### F SCBC #### Unless otherwise noted, all testing performed by [facility] [place] [address] CLIA: [id number] Manager Support Services: Twin Marley M.D. Troponin I.cardiac mass conc [...] Unless otherwise noted, all testing performed by [place] [phone] CLIA: [id number] Manager Support Services: Twin Marley M.D. Partial Thromboplastin Timeo n 01-09-2018 aPTT Coag time (Bld) 48 s High 23.0-34.0 [facility] Comment on above: Result Comment: Sugg ested therapeutic range for PTT is 68-104 sec. Performed By: #### F SBNP #### Unless otherwise noted, all testing performed by [place] [address] CLIA: [id number] Manager Support Services: Twin Marley M.D. aPTT Coag time (Bld) 39 s High 23.0-34.0 [facility] Comment on above: Result Comment: Sugg ested therapeutic range for PTT is 68-104 sec. Performed By: #### F SCBC #### Unless otherwise noted, all testing performed by [place] [address] CLIA: [id number] Manager Support Services: Twin Marley M.D. Protimeon 01-09-2018 INR Coag RelTime (PPP) 0.94 {INR} Normal [facility] Comment on above: Result Comment: The [place] [employer] recommended therapeutic range for Warfarin (Coumadin) therapy goals: PROPHYLAXIS/TREATMENT of: INR Venous Thrombosis, Pulmonary Embolism 2.0-3.0 Prevention of VTE (Orthopedic Surgery) 2.0-3.0 Atrial Fibrillation 2.0-3.0 Myocardial Infarction 2.0-3.0 Mechanical Prosthetic Heart Valves (Aortic position) 2.0-3.0 Mechanical Prosthetic Heart Valves (Mitral Position) 2.5-3.5 [place] [employer] evidence-based clinical practice guidelines. CHEST. 2012 (9th ed) Performed By: #### F SBNP #### Unless otherwise noted, all testing performed by [place] [address] CLIA: [id number] Manager Support Services: Twin Marley M.D. Prothrombin time (PT) Coag time (PPP) 12.2 s Normal 11.8-14.[address] [facility] Comment on above: Performed By: #### F SBNP #### Unless otherwise noted, all testing performed by [place] [address] CLIA: [id number] Manager Support Services: Twin Marley M.D. BLDPATHon 01-08-2018 BLDPATH Patient Name: FERNANDO HELTON Source Peripheral Blood Diagnosis Absolute lymphocytosis present. Repeat CBC in 12 months or earlier if clinically indicated. If lymphocytosis persists, suggest flow cytometry to rule out a lymphoproliferative disorder. Electronically Signed By Hematology Department , Testing performed at [facility] (Case signed 01/09/2018) Normal [facility] Blood Smear Reviewon 018 Blood Smear Review See Pathology Report. Normal [facility] Comment on above: Performed By: #### F SCBC #### Unless otherwise noted, all testing performed by [place] [address] CLIA: [id number] Manager Support Services: Twin Marley M.D. CBC with Diffon 01-08-2018 Band 1.9 % Normal 0-[address] [facility] Comment on above: Performed By: #### F SBMET #### Unless otherwise noted, all testing performed by [place] [phone] CLIA: [id number] Manager Support Services: Twin Marley M.D. Basophils #/vol (Bld) 0.0 K/mcL Normal 0-0.2 [facility] Comment on above: Performed By: #### F SBMET #### Unless otherwise noted, all testing performed by [place] [phone] CLIA: [id number] Manager Support Services: Twin Marley M.D. Basophils/100 WBC (Bld) 0.0 % Normal [facility] Comment on above: Performed By: #### F SBMET #### Unless otherwise noted, all testing performed by [place] [phone] CLIA: [id number] Manager Support Services: Twin Marley M.D. Eosinophils #/vol (Bld) 0.6 K/mcL High 0-0.5 [facility] Comment on above: Performed By: #### F SBMET #### Unless otherwise noted, all testing performed by [place] [phone] CLIA: [id number] Manager Support Services: Twin Marley M.D. Eosinophils/100 WBC (Bld) 3.9 % Normal [facility] Comment on above: Performed By: #### F SBMET #### Unless otherwise noted, all testing performed by [place] [address] CLIA: [id number] Manager Support Services: Twin Marley M.D. Erythrocyte distribution width Ratio (RBC) 15.1 % High 10-14.[address] [facility] Comment on above: Performed By: #### F SBMET #### Unless otherwise noted, all testing performed by [place] [address] CLIA: [id number] Manager Support Services: Twin Marley M.D. Hematocrit Volume Fraction (Bld) 44.3 % Normal 37.9-49.[address] [facility] Comment on above: Performed By: #### F SBMET #### Unless otherwise noted, all testing performed by [place] [address] CLIA: [id number] Manager Support Services: Twin Marley M.D. Hemoglobin mass conc (Bld) 14.5 g/dL Normal 12.9-16.[address] [facility] Comment on above: Performed By: #### F SBMET #### Unless otherwise noted, all testing performed by [place] [address] CLIA: [id number] Manager Support Services: Twin Marley M.D. Lymphocytes #/vol (Bld) 5.1 K/mcL High 0.9-3.6 [facility] Comment on above: Performed By: #### F SBMET #### Unless otherwise noted, all testing performed by [place] [address] CLIA: [id number] Manager Support Services: Twin Marley M.D. Lymphocytes/100 WBC (Bld) 35.9 % Normal [facility] Comment on above: Performed By: #### F SBMET #### Unless otherwise noted, all testing performed by [place] [address] CLIA: [id number] Manager Support Services: Twin Marley M.D. MCH Entitic mass (RBC) 27.7 pg Normal 27.7-34.6 [facility] Comment on above: Performed By: #### F SBMET #### Unless otherwise noted, all testing performed by [place] [address] CLIA: [id number] Manager Support Services: Twin Marley M.D. MCHC mass conc (RBC) 32.6 g/dL Low 32.9-35.5 [facility] Comment on above: Performed By: #### F SBMET #### Unless otherwise noted, all testing performed by [place] [address] CLIA: [id number] Manager Support Services: Twin Marley M.D. MCV Entitic volume (RBC) 84.9 fL Normal 82.8-99.[address] [facility] Comment on above: Performed By: #### F SBMET #### Unless otherwise noted, all testing performed by [place] [address] CLIA: [id number] Manager Support Services: Twin Marley M.D. Metamyelocytes/100 WBC (Bld) 1.9 % High [address] [facility] Comment on above: Performed By: #### F SBMET #### Unless otherwise noted, all testing performed by [place] [address] CLIA: [id number] Manager Support Services: Twin Marley M.D. Monocytes #/vol (Bld) 0.6 K/mcL Normal 0.2-0.6 [facility] Comment on above: Performed By: #### F SBMET #### Unless otherwise noted, all testing performed by [place] [address] CLIA: [id number] Manager Support Services: Twin Marley M.D. Monocytes/100 WBC (Bld) 3.9 % Normal [facility] Comment on above: Performed By: #### F SBMET #### Unless otherwise noted, all testing performed by [place] [address] CLIA: [id number] Manager Support Services: Twin Marley M.D. Myelocyte 1.0 % High [address] [facility] Comment on above: Performed By: #### F SBMET #### Unless otherwise noted, all testing performed by [place] [address] CLIA: [id number] Manager Support Services: Twin Marley M.D. Neutrophils #/vol (Bld) 8.1 K/mcL High 1.4-6.8 [facility] Comment on above: Performed By: #### F SBMET #### Unless otherwise noted, all testing performed by [place] [address] CLIA: [id number] Manager Support Services: Twin Marley M.D. Platelet mean volume Entitic volume (Bld) 8.8 fL Normal 6.6-10.[address] [facility] Comment on above: Performed By: #### F SBMET #### Unless otherwise noted, all testing performed by [place] [phone] CLIA: [id number] Manager Support Services: Twin Marley M.D. Platelets #/vol (Bld) 260 K/mcL Normal 139-354 [facility] Comment on above: Performed By: #### F SBMET #### Unless otherwise noted, all testing performed by [place] [address] CLIA: [id number] Manager Support Services: Twin Marley M.D. RBC #/vol (Bld) 5.22 M/mcL Normal 4.0-5.5 [facility] Comment on above: Performed By: #### F SBMET #### Unless otherwise noted, all testing performed by [place] [address] CLIA: [id number] Manager Support Services: Twin Marley M.D. Segmented Neut % 51.5 % Normal [facility] Comment on above: Result Comment: Carline mccollum performed. Performed By: #### F SBMET #### Unless otherwise noted, all testing performed by [place] [address] CLIA: [id number] Manager Support Services: Twin Marley M.D. WBC #/vol (Bld) 14.3 K/mcL High 3.6-10.4 [facility] Comment on above: Performed By: #### F SBMET #### Unless otherwise noted, all testing performed by [place] [address] CLIA: [id number] Manager Support Services: Twin Marley M.D. CHEST (ONE VIEW ONLY)on 12-14 CHEST (ONE VIEW ONLY) Final Report Accession No: [id number] Performed: Jan 08 2018 6:04PM Examination: [...] Unless otherwise noted, all testing performed by [place] [address] CLIA: [id number] Manager Support Services: Twin Marley M.D. Troponin I.cardiac mass conc No Biomarker evidence of myocardial injury within the past 14 hours. Normal [facility] Comment on above: Performed By: #### F SCBC #### Unless otherwise noted, all testing performed by [place] [address] CLIA: [id number] Manager Support Services: Twin Marley M.D. Troponin I.cardiac mass conc [...] Unless otherwise noted, all testing performed by [place] [address] CLIA: [id number] Manager Support Services: Twin Marley M.D. [facility] Metabolic [facility] 01-08-2018 Albumin mass conc 3.3 g/dL Normal 3.2-5.2 [facility] Comment on above: Performed By: #### F SCBC #### Unless otherwise noted, all testing performed by [place] [phone] CLIA: [id number] Manager Support Services: Twin Marley M.D. ALP enzyme act/vol 61 U/L Normal 40-150 [facility] Comment on above: Performed By: #### F SCBC #### Unless otherwise noted, all testing performed by [place] [phone] CLIA: [id number] Manager Support Services: Twin Marley M.D. ALT enzyme act/vol 41 U/L Normal 14-65 [facility] Comment on above: Result Comment: This test result might be falsely depressed or falsely elevated on samples drawn from patients taking Sulfasalazine and Sulfapyridine. Venipuncture should occur prior to taking either of these drugs. Performed By: #### F SCBC #### Unless otherwise noted, all testing performed by [place] [phone] CLIA: [id number] Manager Support Services: Twin Marley M.D. AST enzyme act/vol 19 U/L Normal 0-45 [facility] Comment on above: Result Comment: This test result might be falsely depressed or falsely elevated on samples drawn from patients taking Sulfasalazine and Sulfapyridine. Venipuncture should occur prior to taking either of these drugs. Performed By: #### F SCBC #### Unless otherwise noted, all testing performed by [place] [address] CLIA: [id number] Manager Support Services: Twin Marley M.D. Bilirubin mass conc 0.8 mg/dL Normal 0.3-1.2 [facility] Comment on above: Performed By: #### F SCBC #### Unless otherwise noted, all testing performed by [place] [phone] CLIA: [id number] Manager Support Services: Twin Marley M.D. Calcium mass conc 8.4 mg/dL Normal 8.4-10.2 [facility] Comment on above: Performed By: #### F SCBC #### Unless otherwise noted, all testing performed by [place] [address] CLIA: [id number] Manager Support Services: Twin Marley M.D. Chloride molar conc 107 mmol/L Normal 98-108 [facility] Comment on above: Performed By: #### F SCBC #### Unless otherwise noted, all testing performed by [place] [address] CLIA: [id number] Manager Support Services: Twin Mraley M.D. CO2 molar conc 26 mmol/L Normal 21-32 [facility] [facility] Comment on above: Performed By: #### F SCBC #### Unless otherwise noted, all testing performed by [place] [address] CLIA: [id number] Manager Support Services: Twin Marley M.D. Creatinine mass conc 1.10 mg/dL Normal 0.50-1.30 [facility] Comment on above: Performed By: #### F SCBC #### Unless otherwise noted, all testing performed by [place] [address] CLIA: [id number] Manager Support Services: Twin Marley M.D. GFR/1.73 sq M predicted among blacks MDRD vol rate/area (S/P/Bld) mL/min/{1.73_m2} Normal [facility] Comment on above: Result Comment: Afri can [place] GFR Calc Performed By: #### F SCBC #### Unless otherwise noted, all testing performed by [place] [address] CLIA: [id number] Manager Support Services: Twin Marley M.D. GFR/1.73 sq M predicted among non-blacks MDRD vol rate/area (S/P/Bld) mL/min/{1.73_m2} Normal [facility] Comment on above: Result Comment: Non- [...] Unless otherwise noted, all testing performed by [place] [address] CLIA: [id number] Manager Support Services: Twin Marley M.D. Glucose mass conc 96 mg/dL Normal 70-99 [facility] Comment on above: Result Comment: This test result might be falsely depressed or falsely elevated on samples drawn from patients taking Sulfasalazine and Sulfapyridine. Venipuncture should occur prior to taking either of these drugs. Performed By: #### F SCBC #### Unless otherwise noted, all testing performed by [place] [address] CLIA: [id number] Manager Support Services: Twin Marley M.D. Potassium molar conc 3.9 mmol/L Normal 3.5-5.1 [facility] Comment on above: Performed By: #### F SCBC #### Unless otherwise noted, all testing performed by [place] [phone] CLIA: [id number] Manager Support Services: Twin Marley M.D. Protein mass conc 6.6 g/dL Normal 6.0-8.0 [facility] Comment on above: Performed By: #### F SCBC #### Unless otherwise noted, all testing performed by [place] [address] CLIA: [id number] Manager Support Services: Twin Marley M.D. Sodium molar conc 141 mmol/L Normal 135-145 [facility] Comment on above: Performed By: #### F SCBC #### Unless otherwise noted, all testing performed by [place] [address] CLIA: [id number] Manager Support Services: Twin Marley M.D. Urea nitrogen mass conc 20 mg/dL Normal 8-25 [facility] Comment on above: Performed By: #### F SCBC #### Unless otherwise noted, all testing performed by [place] [address] CLIA: [id number] Manager Support Services: Twin Marley M.D. Magnesiumon 01-08-2018 Magnesium mass conc 2.0 mg/dL Normal 1.6-2.4 [facility] Comment on above: Performed By: #### F SCBC #### Unless otherwise noted, all testing performed by [place] [address] CLIA: [id number] Manager Support Services: Twin Marley M.D. NT-Pro BNP, Serumon 01-09-20 18 Natriuretic peptide B mass conc (Bld) 143 pg/mL High 0-[address] [facility] Comment on above: Performed By: #### F SCBC #### Unless otherwise noted, all testing performed by [place] [address] CLIA: [id number] Manager Support Services: Twin Marley M.D. Partial Thromboplastin Timeo n 01-08-2018 aPTT Coag time (Bld) 40 s High 23.0-34.0 [facility] Comment on above: Result Comment: Rosemary sauceda therapeutic range for PTT is 68-104 sec. Performed By: #### F SBMET #### Unless otherwise noted, all testing performed by [place] [address] CLIA: [id number] Manager Support Services: Twin Marley M.D. Protimeon 01-08-2018 INR Coag RelTime (PPP) 0.99 {INR} Normal [facility] Comment on above: Result Comment: The [place] [employer] recommended therapeutic range for Warfarin (Coumadin) therapy goals: PROPHYLAXIS/TREATMENT of: INR Venous Thrombosis, Pulmonary Embolism 2.0-3.0 Prevention of VTE (Orthopedic Surgery) 2.0-3.0 Atrial Fibrillation 2.0-3.0 Myocardial Infarction 2.0-3.0 Mechanical Prosthetic Heart Valves (Aortic position) 2.0-3.0 Mechanical Prosthetic Heart Valves (Mitral Position) 2.5-3.5 [place] [employer] evidence-based clinical practice guidelines. CHEST. 2012 (9th ed) Performed By: #### F SBMET #### Unless otherwise noted, all testing performed by [place] [address] CLIA: [id number] Manager Support Services: Twin Marley M.D. Prothrombin time (PT) Coag time (PPP) 12.7 s Normal 11.8-14.[address] [facility] Comment on above: Performed By: #### F SBMET #### Unless otherwise noted, all testing performed by [place] [address] CLIA: [id number] Manager Support Services: Twin Marley M.D. TSHon 01-08-2018 Thyrotropin Qn 2.26 uIU/mL Normal 0.270-4.200 [facility] Comment on above: Result Comment: Samp les from patients routinely receiving high dose biotin therapy (100-300 mg/day) may show falsely decreased results. Please correlate clinically. Please note reference range change as of 12/04/17. Performed By: #### F SCBC #### Unless otherwise noted, all testing performed by [place] [address] CLIA: [id number] Manager Support Services: Twin Marley M.D. Basic Metabolic Panelon 12-14 Calcium mass conc 8.4 mg/dL Normal 8.4-10.2 [facility] Comment on above: Performed By: #### F SBMET #### Unless otherwise noted, all testing performed by [place] [address] CLIA: [id number] Manager Support Services: Twin Ayaka, M.D. Chloride molar conc 108 mmol/L Normal 98-108 [facility] Comment on above: Performed By: #### F SBMET #### Unless otherwise noted, all testing performed by [place] [address] CLIA: [id number] Manager Support Services: Twin Marley M.D. CO2 molar conc 24 mmol/L Normal 21-[address] [facility] Comment on above: Performed By: #### F SBMET #### Unless otherwise noted, all testing performed by [place] [address] CLIA: [id number] Manager Support Services: Twin Marley M.D. Creatinine mass conc 1.14 mg/dL Normal 0.50-1.30 [facility] Comment on above: Performed By: #### F SBMET #### Unless otherwise noted, all testing performed by [place] [address] CLIA: [id number] Manager Support Services: Twin Marley M.D. GFR/1.73 sq M predicted among blacks MDRD vol rate/area (S/P/Bld) mL/min/{1.73_m2} [facility] Comment on above: Result Comment: Afri can [place] GFR Calc Performed By: #### F SBMET #### Unless otherwise noted, all testing performed by [place] [address] CLIA: [id number] Manager Support Services: Twin Marley M.D. GFR/1.73 sq M predicted among non-blacks MDRD vol rate/area (S/P/Bld) mL/min/{1.73_m2} Normal [facility] Comment on above: Result Comment: Non- [...] Unless otherwise noted, all testing performed by [place] [address] CLIA: [id number] Manager Support Services: Twin Marley M.D. Glucose mass conc 119 mg/dL High 70-99 [facility] Comment on above: Result Comment: This test result might be falsely depressed or falsely elevated on samples drawn from patients taking Sulfasalazine and Sulfapyridine. Venipuncture should occur prior to taking either of these drugs. Performed By: #### F SBMET #### Unless otherwise noted, all testing performed by [place] [address] CLIA: [id number] Manager Support Services: Twin Marley M.D. Potassium molar conc 3.7 mmol/L Normal 3.5-5.1 [facility] Comment on above: Performed By: #### F SBMET #### Unless otherwise noted, all testing performed by [place] [address] CLIA: [id number] Manager Support Services: Twin Marley M.D. Sodium molar conc 140 mmol/L Normal 135-145 [facility] Comment on above: Performed By: #### F SBMET #### Unless otherwise noted, all testing performed by [place] [address] CLIA: [id number] Manager Support Services: Twin Marley M.D. Urea nitrogen mass conc 18 mg/dL Normal 8-25 [facility] Comment on above: Performed By: #### F SBMET #### Unless otherwise noted, all testing performed by [place] [address] CLIA: [id number] Manager Support Services: Twin Marley M.D. BLDPATHon 09-24-2017 BLDPATH Patient Name: FERNANDO HELTON Source Peripheral Blood Diagnosis Absolute eosinophilia. Possible causes include allergic or drug reaction, cutaneous disorders, collagen vascular disease, parasite infection, pulmonary diseases including sarcoidosis, or underlying neoplasm. Suggest clinical correlation. Electronically Signed By Hematology Department , Testing performed at [facility] (Case signed 09/24/2017) Normal [facility] Basic Metabolic Panelon 09-12 Calcium mass conc 7.6 mg/dL Low 8.4-10.2 [facility] Comment on above: Performed By: #### P T #### Unless otherwise noted, all testing performed by [place] [address] CLIA: [id number] Manager Support Services: Twin Marley M.D. Chloride molar conc 108 mmol/L Normal 98-108 [facility] Comment on above: Performed By: #### P T #### Unless otherwise noted, all testing performed by [place] [address] CLIA: [id number] Manager Support Services: Twin Marley M.D. CO2 molar conc 27 mmol/L Normal 21-[address] [facility] Comment on above: Performed By: #### P T #### Unless otherwise noted, all testing performed by [place] [address] CLIA: [id number] Manager Support Services: Twin Marley M.D. Creatinine mass conc 1.13 mg/dL Normal 0.50-1.30 [facility] Comment on above: Performed By: #### P T #### Unless otherwise noted, all testing performed by [place] [address] CLIA: [id number] Manager Support Services: Twin Marley M.D. GFR/1.73 sq M predicted among blacks MDRD vol rate/area (S/P/Bld) mL/min/{1.73_m2} Normal [facility] Comment on above: Result Comment: Afri can [place] GFR Calc Performed By: #### P T #### Unless otherwise noted, all testing performed by [place] [address] CLIA: [id number] Manager Support Services: Twin Marley M.D. GFR/1.73 sq M predicted among non-blacks MDRD vol rate/area (S/P/Bld) mL/min/{1.73_m2} Normal [facility] Comment on above: Result Comment: Non- [...] Unless otherwise noted, all testing performed by [place] [address] CLIA: [id number] Manager Support Services: Twin Marley M.D. Glucose mass conc 116 mg/dL High 70-99 [facility] Comment on above: Result Comment: This test result might be falsely depressed or falsely elevated on samples drawn from patients taking Sulfasalazine and Sulfapyridine. Venipuncture should occur prior to taking either of these drugs. Performed By: #### P T #### Unless otherwise noted, all testing performed by [place] [address] CLIA: [id number] Manager Support Services: Twin Marley M.D. Potassium molar conc 3.9 mmol/L Normal 3.5-5.1 [facility] Comment on above: Performed By: #### P T #### Unless otherwise noted, all testing performed by [place] [address] CLIA: [id number] Manager Support Services: Twin Marley M.D. Sodium molar conc 138 mmol/L Normal 135-145 [facility] Comment on above: Performed By: #### P T #### Unless otherwise noted, all testing performed by [place] [address] CLIA: [id number] Manager Support Services: Twin Marley M.D. Urea nitrogen mass conc 17 mg/dL Normal 8-25 [facility] Comment on above: Performed By: #### P T #### Unless otherwise noted, all testing performed by [place] [address] CLIA: [id number] Manager Support Services: Twin Marley M.D. Blood Smear Reviewon 018 Blood Smear Review See Pathology Report. Normal [facility] Comment on above: Performed By: #### F SBMET #### Unless otherwise noted, all testing performed by [place] [address] CLIA: [id number] Manager Support Services: Twin Marley M.D. CBC with Diffon 09-24-2017 Basophils #/vol (Bld) 0.1 K/mcL Normal 0-0.2 [facility] [place] [facility] Comment on above: Performed By: #### F SBMET #### Unless otherwise noted, all testing performed by [place] [address] CLIA: [id number] Manager Support Services: Twin Marley M.D. Basophils/100 WBC (Bld) 0.8 % Normal [facility] Comment on above: Performed By: #### F SBMET #### Unless otherwise noted, all testing performed by [place] [phone] CLIA: [id number] Manager Support Services: Twin Marley M.D. Eosinophils #/vol (Bld) 0.7 K/mcL High 0-0.5 [facility] Comment on above: Performed By: #### F SBMET #### Unless otherwise noted, all testing performed by [place] [phone] CLIA: [id number] Manager Support Services: Twin Marley M.D. Eosinophils/100 WBC (Bld) 8.0 % Normal [facility] Comment on above: Performed By: #### F SBMET #### Unless otherwise noted, all testing performed by [place] [address] CLIA: [id number] Manager Support Services: Twin Marley M.D. Erythrocyte distribution width Ratio (RBC) 15.4 % High 10-14.[address] [facility] Comment on above: Performed By: #### F SBMET #### Unless otherwise noted, all testing performed by [place] [address] CLIA: [id number] Manager Support Services: Twin Marley M.D. Hematocrit Volume Fraction (Bld) 44.6 % Normal 37.9-49.[address] [facility] Comment on above: Performed By: #### F SBMET #### Unless otherwise noted, all testing performed by [place] [address] CLIA: [id number] Manager Support Services: Twin Marley M.D. Hemoglobin mass conc (Bld) 14.8 g/dL Normal 12.9-16.[address] [facility] Comment on above: Performed By: #### F SBMET #### Unless otherwise noted, all testing performed by [place] [phone] CLIA: [id number] Manager Support Services: Twin Marley M.D. Lymphocytes #/vol (Bld) 3.2 K/mcL Normal 0.9-3.6 [facility] Comment on above: Performed By: #### F SBMET #### Unless otherwise noted, all testing performed by [place] [phone] CLIA: [id number] Manager Support Services: Twin Marley M.D. Lymphocytes/100 WBC (Bld) 35.8 % Normal [facility] Comment on above: Performed By: #### F SBMET #### Unless otherwise noted, all testing performed by [place] [phone] CLIA: [id number] Manager Support Services: Twin Marley M.D. MCH Entitic mass (RBC) 28.3 pg Normal 27.7-34.6 [facility] Comment on above: Performed By: #### F SBMET #### Unless otherwise noted, all testing performed by [address] [place], [place] [address] CLIA: [id number] Manager Support Services: Twin Marley M.D. MCHC mass conc (RBC) 33.3 g/dL Normal 32.9-35.5 [facility] Comment on above: Performed By: #### F SBMET #### Unless otherwise noted, all testing performed by [place] [address] CLIA: [id number] Manager Support Services: Twin Marley M.D. MCV Entitic volume (RBC) 84.9 fL Normal 82.8-99.[address] [facility] Comment on above: Performed By: #### F SBMET #### Unless otherwise noted, all testing performed by [place] [phone] CLIA: [id number] Manager Support Services: Twin Marley M.D. Monocytes #/vol (Bld) 0.7 K/mcL High 0.2-0.6 [facility] Comment on above: Performed By: #### F SBMET #### Unless otherwise noted, all testing performed by [place] [address] CLIA: [id number] Manager Support Services: Twin Marley M.D. Monocytes/100 WBC (Bld) 7.7 % Normal [facility] Comment on above: Performed By: #### F SBMET #### Unless otherwise noted, all testing performed by [place] [phone] CLIA: [id number] Manager Support Services: Twin Marley M.D. Neutrophils #/vol (Bld) 4.2 K/mcL Normal 1.4-6.8 [facility] Comment on above: Performed By: #### F SBMET #### Unless otherwise noted, all testing performed by [place] [address] CLIA: [id number] Manager Support Services: Twin Marley M.D. Platelet mean volume Entitic volume (Bld) 9.0 fL Normal 6.6-10.[address] [facility] Comment on above: Performed By: #### F SBMET #### Unless otherwise noted, all testing performed by [place] [phone] CLIA: [id number] Manager Support Services: Twin Marley M.D. Platelets #/vol (Bld) 280 K/mcL Normal 139-354 [facility] Comment on above: Performed By: #### F SBMET #### Unless otherwise noted, all testing performed by [place] [phone] CLIA: [id number] Manager Support Services: Twin Marley M.D. RBC #/vol (Bld) 5.25 M/mcL Normal 4.0-5.5 [facility] Comment on above: Performed By: #### F SBMET #### Unless otherwise noted, all testing performed by [place] [phone] CLIA: [id number] Manager Support Services: Twin Marley M.D. RBC morphology finding Nom (Bld) Normal Normal Normal [facility] Comment on above: Performed By: #### F SBMET #### Unless otherwise noted, all testing performed by [place] [phone] CLIA: [id number] Manager Support Services: Twin Marley M.D. Segmented Neut % 47.7 % Normal [facility] Comment on above: Result Comment: Smea r reviewed to verify automated differential> Performed By: #### F SBMET #### Unless otherwise noted, all testing performed by [place] [address] CLIA: [id number] Manager Support Services: Twin Marley M.D. WBC #/vol (Bld) 8.9 K/mcL Normal 3.6-10.4 [facility] Comment on above: Performed By: #### F SBMET #### Unless otherwise noted, all testing performed by [place] [address] CLIA: [id number] Manager Support Services: Twin Marley M.D. Cardiac Troponin-Ion 018 Troponin [...] Unless otherwise noted, all testing performed by [place] [address] CLIA: [id number] Manager Support Services: Twin Marley M.D. Troponin I.cardiac mass conc No Biomarker evidence of myocardial injury within the past 14 hours. [address] [facility] Comment on above: Performed By: #### P T #### Unless otherwise noted, all testing performed by [place] [address] CLIA: [id number] Manager Support Services: Twin Marley M.D. Troponin I.cardiac mass conc No Biomarker evidence of myocardial injury within the past 14 hours. [address] [facility] Comment on above: Performed By: #### P T #### Unless otherwise noted, all testing performed by [place] [address] CLIA: [id number] Manager Support Services: Twin Marley M.D. Troponin I.cardiac mass conc [...] Unless otherwise noted, all testing performed by [place] [address] CLIA: [id number] Manager Support Services: Twin Marley M.D. D-Dimeron 09-24-2017 D-Dimer < [...] Unless otherwise noted, all testing performed by [place] [address] CLIA: [id number] Manager Support Services: Twin Marley M.D. Magnesiumon 09-24-2017 Magnesium mass conc 2.2 mg/dL Normal 1.6-2.4 [facility] Comment on above: Performed By: #### P T #### Unless otherwise noted, all testing performed by [facility] [place] [address] CLIA: [id number] Manager Support Services: Twin Marley M.D. Basic Metabolic Panelon 09-12 Calcium mass conc 8.3 mg/dL Low 8.4-10.2 [facility] Comment on above: Performed By: #### P T #### Unless otherwise noted, all testing performed by [place] [address] CLIA: [id number] Manager Support Services: Twin Marley M.D. Chloride molar conc 109 mmol/L High 98-108 [facility] Comment on above: Performed By: #### P T #### Unless otherwise noted, all testing performed by [place] [address] CLIA: [id number] Manager Support Services: Twin Marley M.D. CO2 molar conc 26 mmol/L Normal 21-[address] [facility] Comment on above: Performed By: #### P T #### Unless otherwise noted, all testing performed by [place] [address] CLIA: [id number] Manager Support Services: Twin Marley M.D. Creatinine mass conc 1.12 mg/dL Normal 0.50-1.30 [facility] Comment on above: Performed By: #### P T #### Unless otherwise noted, all testing performed by [place] [address] CLIA: [id number] Manager Support Services: Twin Marley M.D. GFR/1.73 sq M predicted among blacks MDRD vol rate/area (S/P/Bld) mL/min/{1.73_m2} Normal [facility] Comment on above: Result Comment: Afri can [place] GFR Calc Performed By: #### P T #### Unless otherwise noted, all testing performed by [place] [address] CLIA: [id number] Manager Support Services: Twin Marley M.D. GFR/1.73 sq M predicted among non-blacks MDRD vol rate/area (S/P/Bld) mL/min/{1.73_m2} Normal [facility] Comment on above: Result Comment: Non- [...] Unless otherwise noted, all testing performed by [place] [address] CLIA: [id number] Manager Support Services: Twin Marley M.D. Glucose mass conc 94 mg/dL Normal 70-99 [facility] Comment on above: Result Comment: This test result might be falsely depressed or falsely elevated on samples drawn from patients taking Sulfasalazine and Sulfapyridine. Venipuncture should occur prior to taking either of these drugs. Performed By: #### P T #### Unless otherwise noted, all testing performed by [place] [address] CLIA: [id number] Manager Support Services: Twin Marley M.D. Potassium molar conc 4.0 mmol/L Normal 3.5-5.1 [facility] Comment on above: Performed By: #### P T #### Unless otherwise noted, all testing performed by [place] [address] CLIA: [id number] Manager Support Services: Twin Marley M.D. Sodium molar conc 140 mmol/L Normal 135-145 [facility] Comment on above: Performed By: #### P T #### Unless otherwise noted, all testing performed by [place] [address] CLIA: [id number] Manager Support Services: Twin Marley M.D. Urea nitrogen mass conc 17 mg/dL Normal 8-25 [facility] Comment on above: Performed By: #### P T #### Unless otherwise noted, all testing performed by [place] [address] CLIA: [id number] Manager Support Services: Twin Marley M.D. CBC w/o Diffon 09-23-2017 Erythrocyte distribution width Ratio (RBC) 15.1 % High 10-14.[address] [facility] Comment on above: Performed By: #### P T #### Unless otherwise noted, all testing performed by [place] [address] CLIA: [id number] Manager Support Services: Tiwn Marley M.D. Hematocrit Volume Fraction (Bld) 46.6 % Normal 37.9-49.[address] [facility] Comment on above: Performed By: #### P T #### Unless otherwise noted, all testing performed by [place] [address] CLIA: [id number] Manager Support Services: Twin Marley M.D. Hemoglobin mass conc (Bld) 15.5 g/dL Normal 12.9-16.[address] [facility] Comment on above: Performed By: #### P T #### Unless otherwise noted, all testing performed by [place] [address] CLIA: [id number] Manager Support Services: Twin Marley M.D. MCH Entitic mass (RBC) 28.2 pg Normal 27.7-34.6 [facility] Comment on above: Performed By: #### P T #### Unless otherwise noted, all testing performed by [place] [address] CLIA: [id number] Manager Support Services: Twin Marley M.D. MCHC mass conc (RBC) 33.3 g/dL Normal 32.9-35.5 [facility] Comment on above: Performed By: #### P T #### Unless otherwise noted, all testing performed by [place] [address] CLIA: [id number] Manager Support Services: Twin Marley M.D. MCV Entitic volume (RBC) 84.5 fL Normal 82.8-99.[address] [facility] Comment on above: Performed By: #### P T #### Unless otherwise noted, all testing performed by [place] [address] CLIA: [id number] Manager Support Services: Twin Marley M.D. Platelet mean volume Entitic volume (Bld) 8.4 fL Normal 6.6-10.[address] [facility] Comment on above: Performed By: #### P T #### Unless otherwise noted, all testing performed by [place] [address] CLIA: [id number] Manager Support Services: Twin Marley M.D. Platelets #/vol (Bld) 269 K/mcL Normal 139-354 [facility] Comment on above: Performed By: #### P T #### Unless otherwise noted, all testing performed by [place] [address] CLIA: [id number] Manager Support Services: Twin Marley M.D. RBC #/vol (Bld) 5.52 M/mcL High 4.0-5.5 [facility] Comment on above: Performed By: #### P T #### Unless otherwise noted, all testing performed by [place] [address] CLIA: [id number] Manager Support Services: Twin Marley M.D. WBC #/vol (Bld) 11.3 K/mcL High 3.6-10.4 [facility] Comment on above: Performed By: #### P T #### Unless otherwise noted, all testing performed by [place] [address] CLIA: [id number] Manager Support Services: Twin Marley M.D. CHEST (ONE VIEW ONLY)on 09-12 CHEST (ONE VIEW ONLY) Final Report Accession No: [id number] Performed: Sep 23 2017 4:18PM Examination: [...] Unless otherwise noted, all testing performed by [place] [address] CLIA: [id number] Manager Support Services: Twin Marley M.D. Troponin I.cardiac mass conc No Biomarker evidence of myocardial injury within the past 14 hours. [address] [facility] Comment on above: Performed By: #### P T #### Unless otherwise noted, all testing performed by [place] [address] CLIA: [id number] Manager Support Services: Twin Marley M.D. ED Cardiac Troponin-Ion 09-12 Troponin I.cardiac mass conc [...] Unless otherwise noted, all testing performed by [place] [address] CLIA: [id number] Manager Support Services: Twin Marley M.D. 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 HISTORY OF PRESENT ILLNESS 47-year-old male with past medical history of coronary disease, status post [place] in 2012, with stent in 2014. Saw [...] Gastrointestinal prophylaxis. MD Pina PRADHAN 09/23/2017 20:41 [id number] T 09/23/2017 21:07 AFS/MODL Electronically Signed By Sofie Daigle M.D. on 27 Sep 2017 19:09:11 GMT Normal [facility] Partial Thromboplastin Timeo n 09-23-2017 aPTT Coag time (Bld) 28 s Normal 23.0-34.0 [facility] Comment on above: Result Comment: Rosemary sauceda therapeutic range for PTT is 68-104 sec. Performed By: #### P T #### Unless otherwise noted, all testing performed by [address] [address] CLIA: [id number] Manager Support Services: Twin Marley M.D. Protimeon 09-23-2017 INR Coag RelTime (PPP) 0.94 {INR} Normal [facility] Comment on above: Result Comment: The [place] [employer] recommended therapeutic range for Warfarin (Coumadin) therapy goals: PROPHYLAXIS/TREATMENT of: INR Venous Thrombosis, Pulmonary Embolism 2.0-3.0 Prevention of VTE (Orthopedic Surgery) 2.0-3.0 Atrial Fibrillation 2.0-3.0 Myocardial Infarction 2.0-3.0 Mechanical Prosthetic Heart Valves (Aortic position) 2.0-3.0 Mechanical Prosthetic Heart Valves (Mitral Position) 2.5-3.5 [place] [employer] evidence-based clinical practice guidelines. CHEST. 2012 (9th ed) Performed By: #### E DCTNI, PTT, PT, CBCWOD, CHEM8 #### Unless otherwise noted, all testing performed by [address] [place], [place] [address] CLIA: [id number] Manager Support Services: Twin Marley M.D. Prothrombin time (PT) Coag time (PPP) 12.2 s Normal 11.8-14.[address] [facility] Comment on above: Performed By: #### E DCTNI, PTT, PT, CBCWOD, CHEM8 #### Unless otherwise noted, all testing performed by [address] [place], [place] [address] CLIA: [id number] Manager Support Services: Twin Marley M.D. Culture, Strep (Throat)on Culture, Strep (Throat) Test Name: Saroj castillo, Strep (Throat) Culture Status: Final Culture Report: No Group A streptococci isolated. Micro Source: Throat Normal [facility] Comment on above: Performed By: #### S TRCUL #### Unless otherwise noted, all testing performed by [place] [address] CLIA: [id number] Manager Support Services: Twin Marley M.D. FS BNP (B-NatriureticPeptide )on 09-11-2017 Natriuretic peptide B mass conc (Bld) 51.5 pg/mL Normal < [address] [facility] Comment on above: Result Comment: BNP may be falsely elevated in patients taking ENTRESTO. Testing performed at [facility], [address] [place] [address]; Medical Pullboat Engineer Orion Gusman M.D. Performed By: #### F SBNP #### Unless otherwise noted, all testing performed by [place] [address] CLIA: [id number] Manager Support Services: Twin Marley M.D. FS Basic Metabolic Panelon 0 09-11-2017 Calcium mass conc 9.2 mg/dL Normal 8.4-10.2 [facility] Comment on above: Performed By: #### F SBMET #### Unless otherwise noted, all testing performed by [place] [address] CLIA: [id number] Manager Support Services: Twin Marley M.D. Chloride molar conc 107 mmol/L Normal 98-108 [facility] Comment on above: Performed By: #### F SBMET #### Unless otherwise noted, all testing performed by [place] [address] CLIA: [id number] Manager Support Services: Twin Marley M.D. CO2 molar conc 26 mmol/L Normal 21-[address] [facility] Comment on above: Performed By: #### F SBMET #### Unless otherwise noted, all testing performed by [place] [address] CLIA: [id number] Manager Support Services: Twin Marley M.D. Creatinine mass conc 1.1 mg/dL Normal 0.50-1.30 [facility] Comment on above: Performed By: #### F SBMET #### Unless otherwise noted, all testing performed by [place] [phone] CLIA: [id number] Manager Support Services: Twin Marley M.D. Glucose mass conc 96 mg/dL Normal 65-99 [facility] Comment on above: Performed By: #### F SBMET #### Unless otherwise noted, all testing performed by [place] [phone] CLIA: [id number] Manager Support Services: Twin Marley M.D. Potassium molar conc 3.9 mmol/L Normal 3.5-5.1 [facility] Comment on above: Performed By: #### F SBMET #### Unless otherwise noted, all testing performed by [place] [phone] CLIA: [id number] Manager Support Services: Twin Marley M.D. Sodium molar conc 139 mmol/L Normal 135-145 [facility] Comment on above: Performed By: #### F SBMET #### Unless otherwise noted, all testing performed by [place] [address] CLIA: [id number] Manager Support Services: Twin Marley M.D. Testing performed [facility] FSED Normal [facility] Comment on above: Result Comment: Test ing performed at [facility], [facility] [place], [place]; Medical Pullboat Engineer Orion Gusman M.D. Performed By: #### F SBMET #### Unless otherwise noted, all testing performed by [place] [address] CLIA: [id number] Manager Support Services: Twin Marley M.D. Urea nitrogen mass conc 15 mg/dL Normal 8-25 [facility] Comment on above: Performed By: #### F SBMET #### Unless otherwise noted, all testing performed by [place] [address] CLIA: [id number] Manager Support Services: Twin Marley M.D. FS CBCon 09-11-2017 Erythrocyte distribution width Ratio (RBC) 15.2 % High 11.6-14.[address] [facility] Comment on above: Performed By: #### F SCBC #### Unless otherwise noted, all testing performed by [place] [address] CLIA: [id number] Manager Support Services: Twin Marley M.D. Hematocrit Volume Fraction (Bld) 43.2 % Normal 41.0-53.[address] [facility] Comment on above: Performed By: #### F SCBC #### Unless otherwise noted, all testing performed by [address] [place] [address] CLIA: [id number] Manager Support Services: Twin Marley M.D. Hemoglobin mass conc (Bld) 14.2 g/dL Normal 13.5-17.[address] [facility] Comment on above: Performed By: #### F SCBC #### Unless otherwise noted, all testing performed by [place] [address] CLIA: [id number] Manager Support Services: Twin Marley M.D. Lymphocytes #/vol (Bld) 4.2 K/mcL High 0.90-4.00 [facility] Comment on above: Performed By: #### F SCBC #### Unless otherwise noted, all testing performed by [place] [phone] CLIA: [id number] Manager Support Services: Twin Marley M.D. Lymphocytes/100 WBC (Bld) 39.2 % Normal [facility] Comment on above: Performed By: #### F SCBC #### Unless otherwise noted, all testing performed by [place] [address] CLIA: [id number] Manager Support Services: Twin Marley M.D. MCH Entitic mass (RBC) 28.4 pg Normal 26.0-34.0 [facility] Comment on above: Performed By: #### F SCBC #### Unless otherwise noted, all testing performed by [place] [address] CLIA: [id number] Manager Support Services: Twin Marley M.D. MCHC mass conc (RBC) 32.9 g/dL Normal 31.0-37.0 [facility] Comment on above: Performed By: #### F SCBC #### Unless otherwise noted, all testing performed by [place] [address] CLIA: [id number] Manager Support Services: Twin Marley M.D. MCV Entitic volume (RBC) 86.4 fL Normal 80-[address] [facility] Comment on above: Performed By: #### F SCBC #### Unless otherwise noted, all testing performed by [place] [address] CLIA: [id number] Manager Support Services: Twin Marley M.D. Neutrophils #/vol (Bld) 5.4 K/mcL Normal 1.70-7.00 [facility] Comment on above: Performed By: #### F SCBC #### Unless otherwise noted, all testing performed by [place] [address] CLIA: [id number] Manager Support Services: Twin Marley M.D. Platelet mean volume Entitic volume (Bld) 11.6 fL Normal 9.0-15.[address] [facility] Comment on above: Performed By: #### F SCBC #### Unless otherwise noted, all testing performed by [place] [address] CLIA: [id number] Manager Support Services: Twin Marley M.D. Platelets #/vol (Bld) 271 K/mcL Normal 150-400 [facility] Comment on above: Performed By: #### F SCBC #### Unless otherwise noted, all testing performed by [place] [address] CLIA: [id number] Manager Support Services: Twin Marley M.D. RBC #/vol (Bld) 5.00 M/mcL Normal 4.50-5.90 [facility] Comment on above: Performed By: #### F SCBC #### Unless otherwise noted, all testing performed by [place] [address] CLIA: [id number] Manager Support Services: Twin Marley M.D. Segmented Neut % 49.5 % Normal [facility] Comment on above: Performed By: #### F SCBC #### Unless otherwise noted, all testing performed by [place] [address] CLIA: [id number] Manager Support Services: Twin Marley M.D. Testing performed [facility] FSED Normal [facility] Comment on above: Result Comment: Test ing performed at [address]; Medical Pullboat Engineer Orion Gusman M.D. Performed By: #### F SCBC #### Unless otherwise noted, all testing performed by [place] [address] CLIA: [id number] Manager Support Services: Twin Marley M.D. WBC #/vol (Bld) 10.8 K/mcL Normal 4.5-11.0 [facility] Comment on above: Performed By: #### F SCBC #### Unless otherwise noted, all testing performed by [place] [address] CLIA: [id number] Manager Support Services: Twin Marley M.D. FS D-Dimeron 09-11-2017 FS [...] of PE or DVT. Testing performed at [facility], [address] [place] [address]; Medical Pullboat Engineer Orion Gusman M.D. Performed By: #### F SDDIMR #### Unless otherwise noted, all testing performed by [place] [address] CLIA: [id number] Manager Support Services: Twin Marley M.D. FS Pochi instrument alerton 09-11-2017 FS Pochi instrument alert Invalid Results Normal [facility] Comment on above: Result Comment: Poss ible interfering substances and/or clinically significant abnormalities that require smear review. Recommend re-draw, reordering as CBC w/Diff and sending to [facility] laboratory. Performed By: #### F SPOCHI #### Unless otherwise noted, all testing performed by [place] [address] CLIA: [id number] Manager Support Services: Twin Marley M.D. FS Rapid Strep A Scrnon 08-14 S. pyogenes Ag IA Ql (Unsp spec) Negative Normal Negative [facility] Comment on above: Result Comment: Nega tive rapid antigen tests will be followed-up with a culture. Rapid test procedural control acceptable. Testing performed at [facility], [address] [place] [address]; Medical Pullboat Engineer Orion Gusman M.D. Performed By: #### F SSTREP #### Unless otherwise noted, all testing performed by [place] [address] CLIA: [id number] Manager Support Services: Twin Marley M.D. FS Troponin Ion 09-11-2017 Troponin I.cardiac mass conc ng/mL Normal < 0.[address] [facility] Comment on above: Result Comment: Test ing performed at [facility], [address], [place], [place]; Medical Pullboat Engineer Orion Gusman M.D. Performed By: #### F STROPI #### Unless otherwise noted, all testing performed by [address] [place], [place] [address] CLIA: [id number] Manager Support Services: Twin Marley M.D. Protimeon 09-11-2017 INR Coag RelTime (PPP) CANCEL PER [facility] ED, CREDIT FORM COMPLETED Normal [facility] Comment on above: Result Comment: Comm ent deleted 09/11/2017 18:47 by JENN: The [place] [employer] recommended therapeutic range for Warfarin (Coumadin) therapy goals: PROPHYLAXIS/TREATMENT of: INR Venous Thrombosis, Pulmonary Embolism 2.0-3.0 Prevention of VTE (Orthopedic Surgery) 2.0-3.0 Atrial Fibrillation 2.0-3.0 Myocardial Infarction 2.0-3.0 Mechanical Prosthetic Heart Valves (Aortic position) 2.0-3.0 Mechanical Prosthetic Heart Valves (Mitral Position) 2.5-3.5 [place] [employer] evidence-based clinical practice guidelines. CHEST. 2012 (9th ed) [employer] [place] [employer] recommended therapeutic range for Warfarin (Coumadin) therapy goals: PROPHYLAXIS/TREATMENT of: INR Venous Thrombosis, Pulmonary Embolism 2.0-3.0 Prevention of VTE (Orthopedic Surgery) 2.0-3.0 Atrial Fibrillation 2.0-3.0 Myocardial Infarction 2.0-3.0 Mechanical Prosthetic Heart Valves (Aortic position) 2.0-3.0 Mechanical Prosthetic Heart Valves (Mitral Position) 2.5-3.5 [place] [employer] evidence-based clinical practice guidelines. CHEST. 2012 (9th ed) Test INR with result of CANCEL PER [facility], CREDIT FORM COMPLETED was originally reported as 1.1 and was changed on 09/11/2017 18:47 by JENN Performed By: #### P T #### Unless otherwise noted, all testing performed by [facility] [address] [place] [address] CLIA: [id number] Manager Support Services: Twin Marley M.D. Prothrombin time (PT) Coag time (PPP) CANCEL PER [facility], CREDIT FORM COMPLETED Normal 11.8-14.[address] [facility] Comment on above: Result Comment: Test Protime with result of CANCEL PER [facility], CREDIT FORM COMPLETED was originally reported as 9.6 and was changed on 09/11/2017 18:47 by JENN Performed By: #### P T #### Unless otherwise noted, all testing performed by [facility] [address] [place] [address] CLIA: [id number] Manager Support Services: Twin Marley M.D. Blood Smear Reviewon 017 Blood Smear Review See Pathology Report. [facility] RBC morphology finding Nom (Bld) Normal Normal [facility] CBC and Differentialon 10-26 Basophils #/vol (Bld) 0.1 K/mcL 0 - 0.2 [facility] Basophils/100 WBC (Bld) 0.6 % [facility] Eosinophils #/vol (Bld) 0.8 K/mcL High 0 - 0.5 [facility] Eosinophils/100 WBC (Bld) 7.0 % [facility] Erythrocyte distribution width Ratio (RBC) 15.2 % High 10 - 14.3 % [facility] Hematocrit Volume Fraction (Bld) 46.0 % 37.9 - 49.2 % [facility] Hemoglobin mass conc (Bld) 15.3 g/dL 12.9 - 16.9 g/dL [facility] Interpretation and review of laboratory results Abnormal [facility] Lymphocytes #/vol (Bld) 3.9 K/mcL High 0.9 - 3.6 [facility] Lymphocytes/100 WBC (Bld) 36.3 % [facility] MCH Entitic mass (RBC) 27.6 pg Low 27.7 - 34.[address] [facility] MCHC mass conc (RBC) 33.2 g/dL 32.9 - 35.5 g/dL [facility] MCV Entitic volume (RBC) 83.1 fL 82.8 - 99.[address] [facility] Monocytes #/vol (Bld) 0.7 K/mcL High 0.2 - 0.6 [facility] Monocytes/100 WBC (Bld) 6.9 % [facility] Neutrophils #/vol (Bld) 5.3 K/mcL 1.4 - 6.8 [facility] Platelet mean volume Entitic volume (Bld) 8.9 fL 6.6 - 10.[address] [facility] Platelets #/vol (Bld) 260 K/mcL 139 - 354 [facility] RBC #/vol (Bld) 5.53 M/mcL High 4.0 - 5.[address] [facility] Segmented Neut 49.2 % [facility] WBC #/vol (Bld) 10.8 K/mcL High 3.6 - 10.[address] [facility] CRP, C-Reactive Proteinon CRP - Inflammation 15.2 mg/L High 0 - 10 mg/L [facility] LDHon 10-26-2016 LDH 158 U/L 100 - 250 U/L [facility] Sedimentation Rateon 017 Sed Rate 10 MM/hr. 0 - [address] [facility] CBC and Differentialon 10-12 Basophils #/vol (Bld) 0.1 K/mcL 0 - 0.2 [facility] Basophils/100 WBC (Bld) 0.6 % [facility] Eosinophils #/vol (Bld) 0.5 K/mcL 0 - 0.5 [facility] Eosinophils/100 WBC (Bld) 4.3 % [facility] Erythrocyte distribution width Ratio (RBC) 14.8 % High 10 - 14.3 % [facility] Hematocrit Volume Fraction (Bld) 48.0 % 37.9 - 49.2 % [facility] Hemoglobin mass conc (Bld) 15.8 g/dL 12.9 - 16.9 g/dL [facility] Interpretation and review of laboratory results Abnormal [facility] Lymphocytes #/vol (Bld) 4.6 K/mcL High 0.9 - 3.6 [facility] Lymphocytes/100 WBC (Bld) 36.3 % [facility] MCH Entitic mass (RBC) 27.5 pg Low 27.7 - 34.[address] [facility] MCHC mass conc (RBC) 33.0 g/dL 32.9 - 35.5 g/dL [facility] MCV Entitic volume (RBC) 83.4 fL 82.8 - 99.[address] [facility] Monocytes #/vol (Bld) 1.0 K/mcL High 0.2 - 0.6 [facility] Monocytes/100 WBC (Bld) 8.2 % [facility] Neutrophils #/vol (Bld) 6.4 K/mcL 1.4 - 6.8 [facility] Platelet mean volume Entitic volume (Bld) 9.5 fL 6.6 - 10.[address] [facility] Platelets #/vol (Bld) 252 K/mcL 139 - 354 [facility] RBC #/vol (Bld) 5.75 M/mcL High 4.0 - 5.[address] [facility] Segmented Neut 50.6 % [facility] WBC #/vol (Bld) 12.7 K/mcL High 3.6 - 10.[address] [facility] TSHon 10-12-2016 Thyrotropin Qn 1.58 uIU/mL 0.320 - 5.000 [facility] Vitamin B12 and Folateson Cobalamin (Vitamin B12) mass conc 375 pg/mL 193 - 986 pg/mL [facility] Folate 18.2 ng/mL High 3.1 - 17.5 ng/mL [facility] CBC and Differentialon 09-18 Basophils #/vol (Bld) 0.1 K/mcL 0 - 0.2 [facility] Basophils/100 WBC (Bld) 0.7 % [facility] Eosinophils #/vol (Bld) 0.5 K/mcL 0 - 0.5 [facility] Eosinophils/100 WBC (Bld) 5.7 % [facility] Erythrocyte distribution width Ratio (RBC) 14.8 % High 10 - 14.3 % [facility] Hematocrit Volume Fraction (Bld) 46.2 % 37.9 - 49.2 % [facility] Hemoglobin mass conc (Bld) 15.5 g/dL 12.9 - 16.9 g/dL [facility] Interpretation and review of laboratory results Abnormal [facility] Lymphocytes #/vol (Bld) 3.2 K/mcL 0.9 - 3.6 [facility] Lymphocytes/100 WBC (Bld) 33.3 % [facility] MCH Entitic mass (RBC) 27.9 pg 27.7 - 34.[address] [facility] MCHC mass conc (RBC) 33.6 g/dL 32.9 - 35.5 g/dL [facility] MCV Entitic volume (RBC) 83.2 fL 82.8 - 99.[address] [facility] Monocytes #/vol (Bld) 0.7 K/mcL High 0.2 - 0.6 [facility] Monocytes/100 WBC (Bld) 7.3 % [facility] Neutrophils #/vol (Bld) 5.1 K/mcL 1.4 - 6.8 [facility] Platelet mean volume Entitic volume (Bld) 8.8 fL 6.6 - 10.[address] [facility] Platelets #/vol (Bld) 252 K/mcL 139 - 354 [facility] RBC #/vol (Bld) 5.56 M/mcL High 4.0 - 5.[address] [facility] Segmented Neut 53.0 % [facility] WBC #/vol (Bld) 9.6 K/mcL 3.6 - 10.[address] [facility] Comprehensive Metabolic Pane bony 09-18-2016 Albumin mass conc 4.4 g/dL 3.5 - 5 g/dL [facility] ALP enzyme act/vol 69 U/L 25 - 100 U/L [facility] ALT enzyme act/vol 22 U/L 10 - 40 U/L [facility] Comment on above: This test result urban ht be falsely depressed or falsely elevated on samples drawn from patients taking Sulfasalazine and Sulfapyridine. Venipuncture should occur prior to taking either of these drugs. AST enzyme act/vol 19 U/L 10 - 40 U/L [facility] Bilirubin mass conc 0.8 mg/dL 0.3 - 1. 2 mg/dL [facility] Calcium mass conc 9.4 mg/dL 8.4 - 10.2 mg/dL [facility] Chloride molar conc 106 mmol/L 99 - 111 mmol/L [facility] CO2 molar conc 25 mmol/L 23 - 32 mmol/L [facility] Creatinine mass conc 0.98 mg/dL 0.6 - 1 .2 mg/dL [facility] GFR/1.73 sq M predicted among blacks MDRD vol rate/area (S/P/Bld) mL/min/{1.73_m2} ml/min/1.73sq .m [facility] GFR/1.73 sq M predicted among non-blacks MDRD vol rate/area (S/P/Bld) mL/min/{1.73_m2} ml/min/1.73sq .m [facility] Comment on above: eGFR is an [...] 108 mg/dL High 70 - 99 mg/dL [facility] Potassium molar conc 4.3 mmol/L 3.5 - 5 .1 mmol/L [facility] Protein mass conc 6.9 g/dL 6.4 - 8.3 g/dL [facility] Sodium molar conc 139 mmol/L 136 - 145 mmol/L [facility] Urea nitrogen mass conc 16 mg/dL 6 - 20 mg/dL [facility] Lipid Panelon 09-18-2016 Cholesterol in HDL mass conc 43 mg/dL 28 - 75 mg/dL [facility] Cholesterol in LDL mass conc 105 mg/dL <[address] [facility] Cholesterol in VLDL mass conc 30 mg/dL 5 - 40 mg/dL [facility] Cholesterol mass conc 178 mg/dL 112 - 200 mg/dL [facility] Cholesterol.total/Teresa sterol in HDL mass ratio 4.1 {ratio} 3.3 - 5.[address] [facility] Comment on above: Male Coronary Heart Disease Risk Factor (CHDRF): Average risk= 5.0 1/2 Average risk= 3.4 2 times Average risk= 9.6 Triglyceride mass conc 151 mg/dL High 35 - 150 mg/dL [facility] T4, Freeon 09-18-2016 T4 free mass conc 1.37 ng/dL 0.76 - 1.7 9 ng/dL [facility] TSHon 09-18-2016 Thyrotropin Qn 0.714 uIU/mL 0.350 - 5.500 [facility] Comment on above: Please note that Flu [...] Time Vital Sign Value Performing Clinician Facility 11-03-2023 07:57-0400 Body temperature 98.1 [degF] Vasile Barcenas MD Work Phone: [facility] 11-03-2023 07:57-0400 Diastolic blood pressure 93 mm[Hg] Vasile Barcenas MD Work Phone: [facility] 11-03-2023 07:57-0400 Heart rate 79 /min Vasile Barcenas MD Work Phone: [facility] 11-03-2023 07:57-0400 Respiratory rate 16 /min Vasile Barcenas MD Work Phone: [facility] 11-03-2023 07:57-0400 SaO2% (BldA) [Mass fraction] 96 % Vaslie Barcenas MD Work Phone: [facility] 11-03-2023 07:57-0400 Systolic blood pressure 147 mm[Hg] Vasile Barcenas MD Work Phone: [facility] 11-01-2023 18:18-0400 Body height 167.6 cm Vasile Barcenas MD Work Phone: [facility] 11-01-2023 18:18-0400 Body mass index (BMI) [Ratio] 43.23 kg/m2 Vasile Barcenas MD Work Phone: [facility] 11-01-2023 18:18-0400 Body weight 121.5 kg Vasile Barcenas MD Work Phone: [facility] 04-02-2023 15:30-0500 Diastolic blood pressure 100 mm[Hg] Anita Rowland MD Work Phone: [facility] 04-02-2023 15:30-0500 Heart rate 93 /min Anita Rowlnad MD Work Phone: [facility] 04-02-2023 15:30-0500 Systolic blood pressure 171 mm[Hg] Anita Rowland MD Work Phone: [facility] 04-02-2023 15:20-0500 Body height 167.6 cm Anita Rowland MD Work Phone: [facility] 04-02-2023 15:20-0500 Body mass index (BMI) [Ratio] 40.84 kg/m2 Anita Rowland MD Work Phone: [facility] 04-02-2023 15:20-0500 Body weight 114.76 kg Anita Rowland MD Work Phone: [facility] 04-02-2023 15:20-0500 SaO2% (BldA) [Mass fraction] 94 % Anita Rowland MD Work Phone: [facility] 12-07-2022 18:38-0400 Diastolic blood pressure 94 mm[Hg] DO Jasen Campbell Work Phone: [facility] 12-07-2022 18:38-0400 Heart rate 95 /min DO Jasen Campbell Work Phone: [facility] 12-07-2022 18:38-0400 Respiratory rate 20 /min DO Jasen Campbell Work Phone: [facility] 12-07-2022 18:38-0400 SaO2% (BldA) [Mass fraction] 94 % DO Jasen Campbell Work Phone: [facility] 12-07-2022 18:38-0400 Systolic blood pressure 172 mm[Hg] DO Jasen Campbell Work Phone: [facility] 12-07-2022 14:28-0400 Body temperature 98.4 [degF] DO Jasen Campbell Work Phone: [facility] 12-07-2022 13:37-0400 Body height 167.64 cm DO Jasen Campbell Work Phone: [facility] 12-07-2022 13:37-0400 Body weight 113.8 kg DO Jasen Campbell Work Phone: [facility] 12-27-2021 07:16-0500 Body height 165.1 cm Moises Patel MD Work Phone: [facility] 12-27-2021 07:16-0500 Body mass index (BMI) [Ratio] 42.7 kg/m2 Moises Patel MD Work Phone: [employer] [facility] 12-27-2021 07:16-0500 Body weight 116.39 kg Moises Patel MD Work Phone: [employer] [facility] 12-27-2021 07:16-0500 Diastolic blood pressure 88 mm[Hg] Moises Patel MD Work Phone: [employer] [facility] 12-27-2021 07:16-0500 Heart rate 75 /min Moises Patel MD Work Phone: [facility] 12-27-2021 07:16-0500 SaO2% (BldA) [Mass fraction] 95 % Moises Patel MD Work Phone: [employer] [facility] 12-27-2021 07:16-0500 Systolic blood pressure 132 mm[Hg] Moises Patel MD Work Phone: [facility] 09-15-2020 09:03-0400 Body height 165.1 cm [facility]ises [facility] 09-15-2020 09:03-0400 Body mass index (BMI) [Ratio] 47.93 kg/m2 Moises Patel MD Work Phone: [facility] 09-15-2020 09:03-0400 Body temperature 97.81 [degF] Moises Patel MD Work Phone: [facility] 09-15-2020 09:03-0400 Body weight 130.64 kg Moises Patel MD Work Phone: [facility] 09-15-2020 09:03-0400 Diastolic blood pressure 92 mm[Hg] Moises Patel MD Work Phone: [facility] 09-15-2020 09:03-0400 Heart rate 80 /min Moises Patel MD Work Phone: [employer] [facility] 09-15-2020 09:03-0400 SaO2% (BldA) [Mass fraction] 94 % Moises aPtel MD Work Phone: [facility] 09-15-2020 09:03-0400 Systolic blood pressure 138 mm[Hg] Moises Patel MD Work Phone: [facility] 06-02-2020 08:21-0400 Body height 167.6 cm Anita Rowland MD Work Phone: [facility] 06-02-2020 08:21-0400 Body mass index (BMI) [Ratio] 46 kg/m2 Anita Rowland MD Work Phone: [facility] 06-02-2020 08:21-0400 Body weight 129.28 kg Anita Rowland MD Work Phone: [facility] 06-02-2020 08:12-0400 Body temperature 98.01 [degF] Anita Rowland MD Work Phone: [facility] 06-02-2020 08:12-0400 Diastolic blood pressure 82 mm[Hg] Anita Rowland MD Work Phone: [facility] 06-02-2020 08:12-0400 Heart rate 74 /min Anita Rowland MD Work Phone: [facility] 06-02-2020 08:12-0400 Respiratory rate 16 /min Anita Rowland MD Work Phone: [facility] 06-02-2020 08:12-0400 SaO2% (BldA) [Mass fraction] 93 % Anita Rowland MD Work Phone: [facility] 06-02-2020 08:12-0400 Systolic blood pressure 117 mm[Hg] Anita Rowland MD Work Phone: [facility] 05-28-2020 16:05-0400 Body height 167.6 cm Anita Rowland MD Work Phone: [facility] 05-28-2020 16:05-0400 Body mass index (BMI) [Ratio] 43.28 kg/m2 Anita Rowland MD Work Phone: [facility] 05-28-2020 16:05-0400 Body weight 121.56 kg Anita Rowland MD Work Phone: [facility] 05-28-2020 16:05-0400 Diastolic blood pressure 88 mm[Hg] Anita Rowland MD Work Phone: [facility] 05-28-2020 16:05-0400 Heart rate 78 /min Anita Rowland MD Work Phone: [facility] 05-28-2020 16:05-0400 SaO2% (BldA) [Mass fraction] 96 % Anita Rowland MD Work Phone: [facility] 05-28-2020 16:05-0400 Systolic blood pressure 149 mm[Hg] Anita Rowland MD Work Phone: [facility] 05-28-2020 07:59-0400 Body height 167.6 cm Anita Rowland MD Work Phone: [facility] 05-28-2020 07:59-0400 Body mass index (BMI) [Ratio] 42.01 kg/m2 Anita Rowland MD Work Phone: [facility] 05-28-2020 07:59-0400 Body weight 118 kg Anita Rowland MD Work Phone: [facility] 05-28-2020 07:59-0400 Diastolic blood pressure 79 mm[Hg] Anita Rowland MD Work Phone: [facility] 05-28-2020 07:59-0400 Heart rate 80 /min Anita Rowland MD Work Phone: [facility] 05-28-2020 07:59-0400 Systolic blood pressure 123 mm[Hg] Anita Rowland MD Work Phone: [facility] 10-16-2019 15:34-0400 BP Diastolic 90 mm[Hg] [facility] 10-16-2019 15:34-0400 BP Systolic 137 mm[Hg] [facility] 10-16-2019 15:34-0400 Pulse (Heart Rate) 102 /min [facility] 10-16-2019 15:34-0400 Pulse Oximetry 100 % [facility] 10-16-2019 12:05-0400 Body Temperature 97.59 [degF] [facility] 10-16-2019 12:05-0400 Respiratory Rate 16 /min [facility] 10-16-2019 01:23-0400 BMI (Body Mass Index) 41.99 kg/m2 [facility] 10-16-2019 01:23-0400 Body weight 118 kg [facility] 10-16-2019 01:23-0400 Height 167.6 cm [facility] 10-15-2019 14:06-0400 BMI (Body Mass Index) 42.79 kg/m2 Anita Rowland [facility] 10-15-2019 14:06-0400 Body weight 120.25 kg Anita Rowland [facility] 10-15-2019 14:06-0400 BP Diastolic 85 mm[Hg] Anita Rowland [facility] 10-15-2019 14:06-0400 BP Systolic 142 mm[Hg] Anita Rowland [facility] 10-15-2019 14:06-0400 Height 167.6 cm Anita Rowland [facility] 10-15-2019 14:06-0400 Pulse (Heart Rate) 83 /min Anita Rowland [facility] 10-15-2019 14:06-0400 Pulse Oximetry 95 % Anita Rowland [facility] 09-23-2019 13:07-0400 BP Diastolic 104 mm[Hg] [facility] 09-23-2019 13:07-0400 BP Systolic 155 mm[Hg] [facility] 09-23-2019 13:07-0400 Pulse (Heart Rate) 65 /min [facility] 09-23-2019 13:01-0400 Pulse Oximetry 97 % [facility] 09-23-2019 11:28-0400 Respiratory Rate 16 /min [facility] 09-23-2019 08:44-0400 Body Temperature 97.81 [degF] [facility] 09-22-2019 12:02-0400 BMI (Body Mass Index) 43.66 kg/m2 [facility] 09-22-2019 12:02-0400 Body weight 122.7 kg [facility] 09-22-2019 12:02-0400 Height 167.6 cm [facility] 04-03-2019 15:09-0500 BMI (Body Mass Index) 41.97 kg/m2 [facility] 04-03-2019 15:09-0500 Body weight 117.94 kg [facility] 04-03-2019 15:09-0500 BP Diastolic 85 mm[Hg] [facility] 04-03-2019 15:09-0500 BP Systolic 130 mm[Hg] [facility] 04-03-2019 15:09-0500 Height 167.6 cm [facility] 04-03-2019 15:09-0500 Pulse (Heart Rate) 86 /min [facility] 04-03-2019 15:09-0500 Pulse Oximetry 95 % Carlo Mercedes [facility] 03-11-2019 08:19-0500 BP Diastolic 66 mm[Hg] Torie Westbrook [facility] 03-11-2019 08:19-0500 BP Systolic 122 mm[Hg] Torie Westbrook [facility] 02-26-2019 13:19-0500 BMI (Body Mass Index) 38.82 kg/m2 Kristin Walker [facility] 02-26-2019 13:19-0500 Body Temperature 98.4 [degF] Kristin [facility] 02-26-2019 13:19-0500 Body weight 109.09 kg Kristin Walker [facility] 02-26-2019 13:19-0500 BP Diastolic 88 mm[Hg] Kristin Walker [facility] 02-26-2019 13:19-0500 BP Systolic 129 mm[Hg] Kristin [facility] 02-26-2019 13:19-0500 Height 167.6 cm Kristin [facility] 02-26-2019 13:19-0500 Pulse (Heart Rate) 93 /min Kristin [facility] 02-26-2019 13:19-0500 Pulse Oximetry 93 % Kristin Walker [facility] 02-26-2019 13:19-0500 Respiratory Rate 16 /min Kristin Walker [facility] 02-26-2019 00:00-0500 BP Diastolic 78 mm[Hg] Faustojess Alejandro [facility] 02-26-2019 00:00-0500 BP Systolic 122 mm[Hg] Fausto Javon [facility] 02-26-2019 00:00-0500 Pulse (Heart Rate) 79 /min Faustojess Alejandro [facility] 02-26-2019 00:00-0500 Pulse Oximetry 97 % Faustojess Alejandro [facility] 02-26-2019 00:00-0500 Respiratory Rate 18 /min Faustojess Alejandro [facility] 02-25-2019 20:32-0500 BMI (Body Mass Index) 38.25 kg/m2 Fausto Alejandro [facility] 02-25-2019 20:32-0500 Body Temperature 98.01 [degF] Faustojess Alejandro [facility] 02-25-2019 20:32-0500 Body weight 107.5 kg Faustojess Alejandro [facility] 02-25-2019 20:32-0500 Height 167.6 [facility] 09:10-0500 BMI (Body Mass Index) 39.22 kg/m2 Kristin [facility] 02-21-2019 09:10-0500 Body Temperature 97.81 [degF] Kristin [facility] 02-21-2019 09:10-0500 Body weight 110.22 kg Kristin [facility] 02-21-2019 09:10-0500 BP Diastolic 84 mm[Hg] Kristin [facility] 02-21-2019 09:10-0500 BP Systolic 128 mm[Hg] Kristin [facility] 02-21-2019 09:10-0500 Height 167.6 cm Kristin [facility] 02-21-2019 09:10-0500 Pulse (Heart Rate) 77 /min Kristin [facility] 02-21-2019 09:10-0500 Pulse Oximetry 97 % Kristin [facility] 02-13-2019 09:07-0500 BMI (Body Mass Index) 39.38 kg/m2 Kristin [facility] 02-13-2019 09:07-0500 Body Temperature 97.5 [degF] Kristin [facility] 02-13-2019 09:07-0500 Body weight 110.68 kg Kristin [facility] 02-13-2019 09:07-0500 BP Diastolic 78 mm[Hg] Kristin [facility] 02-13-2019 09:07-0500 BP Systolic 115 mm[Hg] Kristin [facility] 02-13-2019 09:07-0500 Height 167.6 cm Kristin [facility] 02-13-2019 09:07-0500 Pulse (Heart Rate) 76 /min Kristin [facility] 02-13-2019 09:07-0500 Pulse Oximetry 95 % Kristin [facility] 02-06-2019 13:05-0500 BMI (Body Mass Index) 39.59 kg/m2 [place] 02-06-2019 13:05-0500 Body Temperature 98.2 [degF] [place] 02-06-2019 13:05-0500 Body weight 111.27 kg [place] 02-06-2019 13:05-0500 BP Diastolic 81 mm[Hg] [facility] [place] 02-06-2019 13:05-0500 BP Systolic 124 mm[Hg] Jacob Cam [facility] 02-06-2019 13:05-0500 Height 167.6 cm [place] 02-06-2019 13:05-0500 Pulse (Heart Rate) 97 /min Jacob Cam [facility] 02-06-2019 13:05-0500 Pulse Oximetry 95 % [place] 02-06-2019 13:05-0500 Respiratory Rate 17 /min [facility] [place] 02-04-2019 07:45-0500 Body Temperature 98.1 [degF] [facility] 02-04-2019 07:45-0500 BP Diastolic 91 mm[Hg] [facility] 02-04-2019 07:45-0500 BP Systolic 129 mm[Hg] [facility] 02-04-2019 07:45-0500 Pulse (Heart Rate) 90 /min [facility] 02-04-2019 07:45-0500 Pulse Oximetry 94 % [facility] 02-04-2019 07:45-0500 Respiratory Rate 16 /min [facility] 02-04-2019 05:58-0500 BMI (Body Mass Index) 38.8 kg/m2 [facility] 02-04-2019 05:58-0500 Body weight 109.05 kg [facility] 02-02-2019 18:07-0500 Height 167.6 cm [facility] 02-02-2019 12:08-0500 Respiratory rate 0 /min [facility] 01-31-2019 09:19-0500 BMI (Body Mass Index) 40.66 kg/m2 Kristin [facility] 01-31-2019 09:19-0500 Body Temperature 98.1 [degF] Kristin Walker [facility] 01-31-2019 09:19-0500 Body weight 114.26 kg Kristin Walker [facility] 01-31-2019 09:19-0500 BP Diastolic 89 mm[Hg] Kristin Walker [facility] 01-31-2019 09:19-0500 BP Systolic 123 mm[Hg] Kristin Walker [facility] 01-31-2019 09:19-0500 Height 167.6 cm Kristin Walker [facility] 01-31-2019 09:19-0500 Pulse (Heart Rate) 93 /min Kristin Walker [facility] 01-31-2019 09:19-0500 Pulse Oximetry 94 % Kristin Walker [facility] 01-31-2019 09:19-0500 Respiratory Rate 16 /min Kristin Walker [facility] 01-29-2019 11:46-0500 Body Temperature 97.81 [degF] [facility] 01-29-2019 11:46-0500 BP Diastolic 78 mm[Hg] [facility] 01-29-2019 11:46-0500 BP Systolic 135 mm[Hg] [facility] 01-29-2019 11:46-0500 Pulse (Heart Rate) 83 /min [facility] 01-29-2019 11:46-0500 Pulse Oximetry 95 % [facility] 01-29-2019 11:46-0500 Respiratory Rate 18 /min [facility] 01-29-2019 05:40-0500 BMI (Body Mass Index) 39.86 kg/m2 [facility] 01-29-2019 05:40-0500 Body weight 112.5 kg [facility] Comment on above: standing scale 01-25-2019 13:34-0500 Respiratory rate 0 /min [facility] 01-24-2019 13:25-0500 Respiratory rate 0 /min [facility] 01-24-2019 11:46-0500 Respiratory rate 12 /min [facility] 01-24-2019 10:43-0500 Respiratory rate 12 /min [facility] 01-24-2019 05:00-0500 Height 168 cm [facility] 01-20-2019 10:22-0500 Respiratory rate 0 /min [facility] 01-04-2019 16:55-0500 BMI (Body Mass Index) 40.35 kg/m2 [facility] 01-04-2019 16:55-0500 Body Temperature 97.9 [degF] [facility] 01-04-2019 16:55-0500 Body weight 113.4 kg [facility] 01-04-2019 16:55-0500 BP Diastolic 88 mm[Hg] [facility] 01-04-2019 16:55-0500 BP Systolic 137 mm[Hg] [facility] 01-04-2019 16:55-0500 Height 167.6 cm [facility] 01-04-2019 16:55-0500 Pulse (Heart Rate) 79 /min [facility] 01-04-2019 16:55-0500 Pulse Oximetry 98 % [facility] 01-04-2019 16:55-0500 Respiratory Rate 14 /min [facility] 12-26-2018 15:50-0500 BMI (Body Mass Index) 40.51 kg/m2 [facility] 12-26-2018 15:50-0500 Body weight 113.85 kg [facility] 12-26-2018 15:50-0500 BP Diastolic 87 mm[Hg] [facility] 12-26-2018 15:50-0500 BP Systolic 125 mm[Hg] [facility] 12-26-2018 15:50-0500 Height 167.6 cm [facility] 12-26-2018 15:50-0500 Pulse (Heart Rate) 98 /min [facility] 12-26-2018 15:50-0500 Pulse Oximetry 97 % [facility] 09-27-2018 22:00-0400 BP Diastolic 96 mm[Hg] [facility]-27-2018 22:00-0400 BP Systolic 146 mm[Hg] [facility] 09-27-2018 22:00-0400 Pulse (Heart Rate) 91 /min [facility] 09-27-2018 22:00-0400 Respiratory Rate 26 /min [facility] 09-27-2018 19:30-0400 Pulse Oximetry 95 % [facility] 09-27-2018 19:07-0400 BMI (Body Mass Index) 37.12 kg/m2 [facility] 09-27-2018 19:07-0400 Body Temperature 98.49 [degF] [facility] 09-27-2018 19:07-0400 Body weight 104.33 kg [facility] 09-27-2018 19:07-0400 Height 167.6 cm Nathanael Valencia [facility] 01-07-2018 10:29-0500 BMI (Body Mass Index) 37.93 kg/m2 Patricia Sruthi [facility] 01-07-2018 10:29-0500 BP Diastolic 80 mm[Hg] Patricia Sruthi [facility] 01-07-2018 10:29-0500 BP Systolic 124 mm[Hg] Patricia Sruthi [facility] 01-07-2018 10:29-0500 Height 167.6 cm Patricia Sruthi [facility] 01-07-2018 10:29-0500 Pulse (Heart Rate) 78 /min Patricia Sruthi [facility] 01-07-2018 10:29-0500 Pulse Oximetry 96 % Patricia Bowersx [facility] 01-07-2018 10:29-0500 Weight 106.59 kg Patricia Bowersx [facility] 09-20-2017 15:31-0400 BMI (Body Mass Index) 36.48 kg/m2 Patricia Sruthi [facility] 09-20-2017 15:31-0400 BP Diastolic 80 mm[Hg] Patircia Sruthi [facility] 09-20-2017 15:31-0400 BP Systolic 145 mm[Hg] Patricia Sruthi [facility] 09-20-2017 15:31-0400 Height 167.6 cm Patricia Bowersx [facility] 09-20-2017 15:31-0400 Pulse (Heart Rate) 72 /min Patricia Sruthi [facility] 09-20-2017 15:31-0400 Pulse Oximetry 95 % Patricia Sruthi [facility] 09-20-2017 15:31-0400 Weight 102.51 kg Patricia Bowersx [facility] 12-08-2016 11:05-0400 BMI (Body Mass Index) 34.33 kg/m2 [employer] [facility] Work Phone: 12-08-2016 11:05-0400 BP Diastolic 96 mm[Hg] [employer] [facility] Work Phone: 12-08-2016 11:05-0400 BP Systolic 143 mm[Hg] [employer] [facility] Work Phone: 12-08-2016 11:05-0400 Height 167.6 cm Bev Tolentino [employer] Work Phone: 12-08-2016 11:05-0400 Pulse (Heart Rate) 69 /min Bev Tolentino [employer] Work Phone: 12-08-2016 11:05-0400 Weight 96.48 kg Bev Tolentino [employer] Work Phone: 11-23-2016 10:32-0400 BMI (Body Mass Index) 32.51 kg/m2 Bev Tolentino [employer] Work Phone: 11-23-2016 10:32-0400 BP Diastolic 93 mm[Hg] Bev Tolentino [employer] Work Phone: 11-23-2016 10:32-0400 BP Systolic 121 mm[Hg] Bev Tolentino [employer] Work Phone: 11-23-2016 10:32-0400 Height 170.2 cm Bev Tolentino [employer] Work Phone: 11-23-2016 10:32-0400 Pulse (Heart Rate) 78 /min Bev Tolentino [employer] Work Phone: 11-23-2016 10:32-0400 Weight 94.17 kg Bev Tolentino [employer] Work Phone: 11-02-2016 10:00-0400 BMI (Body Mass Index) 34.07 kg/m2 Bev Tolentino [employer] Work Phone: 11-02-2016 10:00-0400 BP Diastolic 92 mm[Hg] Bev Tolentino [employer] Work Phone: 11-02-2016 10:00-0400 BP Systolic 135 mm[Hg] Bev Tolentino [employer] Work Phone: 11-02-2016 10:00-0400 Height 167.6 cm Bev Tolentino [employer] Work Phone: 11-02-2016 10:00-0400 Pulse (Heart Rate) 63 /min Bev Tolentino [employer] Work Phone: 11-02-2016 10:00-0400 Weight 95.75 kg Bev Tolentino [employer] Work Phone: 10-26-2016 14:00-0400 Body mass index (BMI) [Ratio] Bev Tolentino [facility] 10-26-2016 09:58-0400 BMI (Body Mass Index) 35.72 kg/m2 Bev Tolentino [employer] Work Phone: 10-26-2016 09:58-0400 BP Diastolic 88 mm[Hg] Bev Tolentino [employer] Work Phone: 10-26-2016 09:58-0400 BP Systolic 133 mm[Hg] Bev Tolentino [employer] Work Phone: 10-26-2016 09:58-0400 Height 167.6 cm Bev Tolentino [employer] Work Phone: 10-26-2016 09:58-0400 Pulse (Heart Rate) 68 /min Bev Tolentino [employer] Work Phone: 10-26-2016 09:58-0400 Weight 100.38 kg Bev Tolentino [employer] Work Phone: 09-18-2016 08:56-0400 BMI (Body Mass Index) 33.89 kg/m2 Patricia Sruthi [employer] Work Phone: 09-18-2016 08:56-0400 BP Diastolic 76 mm[Hg] Patricia Sruthi [employer] Work Phone: 09-18-2016 08:56-0400 BP Systolic 124 mm[Hg] Patricia Sruthi [employer] Work Phone: 09-18-2016 08:56-0400 Height 167.6 cm Patricia Sruthi [employer] Work Phone: 09-18-2016 08:56-0400 Pulse (Heart Rate) 68 /min Patricia Sruthi [employer] Work Phone: 09-18-2016 08:56-0400 Pulse Oximetry 94 % Patricia Louis [facility] Work Phone: 09-18-2016 [id number] Weight 95.25 kg Patricia Louis [facility] Work Phone: Encounters Encounter Date Encounter Type Care Provider Facility Start: 11-01-2023 End: 11-03-2023 ambulatory [facility] Start: 11-01-2023 End: 11-03-2023 Emergency department patient visit Generic [facility] Work Phone: [facility] Start: 11-01-2023 End: 11-01-2023 Emergency department patient visit MOISES AGUILERA [facility] Start: 11-01-2023 End: 11-01-2023 ambulatory MOISES [facility] Start: 05-30-2023 End: 05-30-2023 ambulatory ANITA DE LEON [facility] Start: 05-07-2023 Orders Only Renae Spence RN [facility] Comment on above: Syncope and collapse (Primary Dx) Syncope and collapse (Primary Dx); SOB (shortness of breath) Start: 05-04-2023 Documentation procedure Renae Spence RN [facility] Comment on above: Medication Refill Start: 04-02-2023 End: 04-02-2023 Office outpatient visit 40 minutes Anita Rowland MD Work Phone: [facility] Comment on above: Syncope and collapse (Primary Dx); Essential hypertension; Mixed hyperlipidemia; Coronary artery disease involving [place] coronary artery of [place] heart without angina pectoris; Cardiomyopathy, unspecified type (HCC); TIA (transient ischemic attack); Centrilobular emphysema (HCC); ISAC (obstructive sleep apnea); Irritable bowel syndrome, unspecified type Start: 04-02-2023 End: 04-02-2023 Orders Only Renae Spence RN [facility] Comment on above: Coronary artery dise ase involving [place] coronary artery of [place] heart without angina pectoris (Primary Dx) Start: 12-07-2022 End: 12-07-2022 Emergency department patient visit Jasen Campbell Facility:[facility] Start: 12-07-2022 End: 12-07-2022 Emergency department patient visit DO Jasen Campbell Work Phone: [facility] Work Phone: Start: 06-01-2022 Refill Anita Rowland MD Work Phone: [facility] Comment on above: Medication Refill Start: 03-06-2022 Documentation procedure Cassia hernandez MA [facility] Start: 02-14-2022 Refill Tiffany Leo RN [facility] Comment on above: Medication Refill Start: 01-22-2022 Refill Anita Rowland MD Work Phone: [facility] Comment on above: Medication Refill Start: 12-27-2021 ambulatory MOISES PATEL [facility] Start: 12-27-2021 End: 12-27-2021 Office outpatient visit 25 minutes Moises Patel MD Work Phone: [facility] Comment on above: Inadequately control led diabetes mellitus (Primary Dx); Insomnia, unspecified type Start: 10-30-2021 End: 10-30-2021 [facility] department [facility] Start: 10-23-2021 Refill Anita Rowland MD Work Phone: [facility] Comment on above: Medication Refill Start: 10-21-2021 Refill Anita Rowland MD Work Phone: [facility] Comment on above: Medication Refill Start: 10-19-2021 Refill Anita Rowland MD Work Phone: [facility] Comment on above: Medication Refill Start: 10-11-2021 Refill Anita Rowland MD Work Phone: [facility] Comment on above: Medication Refill Start: 07-06-2021 Refill Tiffany Leo RN [facility] Comment on above: Medication Refill Start: 05-23-2021 Refill Anita Rowland MD Work Phone: [facility] Comment on above: Medication Refill Start: 01-17-2021 Refill Tiffany Leo RN [facility] Comment on above: Medication Refill Start: 09-15-2020 End: 09-15-2020 Office outpatient visit 25 minutes Moises Patel MD Work Phone: [facility] Comment on above: Chronic obstructive pulmonary disease with acute exacerbation (Primary Dx); COPD with acute exacerbation Start: 08-19-2020 End: 08-19-2020 Refill Tiffany Leo RN [facility] Comment on above: Medication Refill Start: 08-06-2020 End: 08-06-2020 Refill Anita Rowland MD Work Phone: [facility] Comment on above: Medication Refill Start: 08-06-2020 End: 08-06-2020 Subsequent hospital visit by physician Anita Rowland MD Work Phone: [facility] Comment on above: Arrived Start: 06-10-2020 End: 06-10-2020 Clinical Support Cassandra Jean Baptiste RN [facility] Comment on above: Other specified comp lications of surgical and medical care, not elsewhere classified, initial encounter (Primary Dx) Arrived Medication Refill Start: 06-02-2020 End: 06-02-2020 Subsequent hospital visit by physician Anita Rowland MD Work Phone: [facility] Start: 05-28-2020 End: 05-28-2020 Office outpatient visit 40 minutes Anita Rowland MD Work Phone: [facility] Comment on above: Essential hypertensi on (Primary Dx); Mixed hyperlipidemia; Coronary artery disease involving [place] coronary artery of [place] heart without angina pectoris; PAD (peripheral artery disease) (HCC); Centrilobular emphysema (HCC); ISAC (obstructive sleep apnea); Nicotine abuse; Pre-procedure lab exam; Abnormal stress test Start: 05-28-2020 End: 05-28-2020 Patient encounter status Anita Rowland MD Work Phone: [facility] Start: 05-28-2020 End: 05-28-2020 Subsequent hospital visit by physician Anita Rowland MD Work Phone: [facility] Comment on above: Arrived Start: 05-23-2020 End: 05-23-2020 Patient encounter procedure MOISES AGUILERA [facility] Start: 05-18-2020 End: 05-18-2020 Orders Only Tiffany Leo [facility] Comment on above: Pre-procedure lab ex am (Primary Dx) Start: 04-21-2020 End: 04-21-2020 Orders Only Alicja Lamardimple Nieves Work Phone: [facility] Start: 04-13-2020 End: 04-13-2020 Refill Tiffany Leo [facility] Comment on above: Medication Refill Start: 04-12-2020 End: 04-12-2020 Refill Rubi Pratt [facility] Comment on above: Medication Refill Start: 12-05-2019 End: 12-05-2019 Patient encounter procedure MOISES AGUILERA [facility] Start: 10-17-2019 End: 10-17-2019 Documentation procedure Rubi Pratt [facility] Start: 10-16-2019 End: 10-16-2019 Subsequent hospital visit by physician Anita Rowland Work Phone: [facility] Comment on above: TIA (transient ische gustavo attack) Start: 10-15-2019 End: 10-16-2019 Emergency department patient visit Andreas Barfield Work Phone: [facility] Comment on above: Near syncope (Primar y Dx) Start: 10-15-2019 End: 10-15-2019 Office outpatient visit 25 minutes Anita Rowland Work Phone: [facility] Comment on above: TIA (transient ische gustavo attack) (Primary Dx); Essential hypertension; Mixed hyperlipidemia; Coronary artery disease involving [place] coronary artery of [place] heart without angina pectoris; Centrilobular emphysema (HCC); ISAC on CPAP; Nicotine abuse Start: 09-22-2019 Patient encounter procedure MOISES PATEL [facility] Start: 09-22-2019 End: 09-23-2019 Emergency department patient visit Ana Walters Ekren Work Phone: [facility] Comment on above: Acute CVA (cerebrova scular accident) (HCC) (Primary Dx) Start: 04-03-2019 End: 04-03-2019 Office outpatient visit 15 minutes Carlo Mercedes Work Phone: [facility] Comment on above: Medication managemen t (Primary Dx); Coronary artery disease, angina presence unspecified, unspecified vessel or lesion type, unspecified whether [place] or transplanted heart Start: 03-17-2019 End: 03-17-2019 Patient encounter procedure Carlo Mercedes Work Phone: [facility] Comment on above: S/P CABG (coronary a rtery bypass graft) (Primary Dx) Start: 03-13-2019 End: 03-13-2019 Subsequent hospital visit by physician Carlo Mercedes Work Phone: [facility] Comment on above: Arrived Start: 03-11-2019 End: 03-11-2019 Patient encounter procedure Kristin Walker Work Phone: [facility] Comment on above: S/P CABG (coronary a rtery bypass graft) (Primary Dx) Start: 03-10-2019 Refill Kristin lopez PA-C Work Phone: [facility] Comment on above: Medication Refill Start: 03-05-2019 End: 03-05-2019 Documentation procedure Kristin Walker Work Phone: [facility] Start: 02-26-2019 End: 02-26-2019 Postop follow up visit related to original px Kristin Walker Work Phone: [facility] Comment on above: S/P CABG (coronary a rtery bypass graft) (Primary Dx) Start: 02-25-2019 End: 02-26-2019 Emergency department patient visit Fausto Alejandro Work Phone: [facility] Comment on above: Pleuritic chest pain (Primary Dx) Start: 02-21-2019 End: 02-21-2019 Postop follow up visit related to original px Kristin Gayle Walker Work Phone: [facility] Comment on above: S/P CABG (coronary a rtery bypass graft) (Primary Dx) Start: 02-21-2019 End: 02-21-2019 Subsequent hospital visit by physician Jacob Cam Work Phone: [facility] Comment on above: S/P CABG (coronary a rtery bypass graft) Start: 02-18-2019 End: 02-18-2019 Documentation procedure Kristin Byrnes Work Phone: [facility] Start: 02-13-2019 End: 02-13-2019 Postop follow up visit related to original px Kristin Gayle Walker Work Phone: [facility] Comment on above: S/P CABG (coronary a rtery bypass graft) (Primary Dx) Start: 02-13-2019 End: 02-13-2019 Subsequent hospital visit by physician Kristin Byrnes Work Phone: [facility] Comment on above: S/P CABG x 1 Start: 02-06-2019 End: 02-06-2019 Postop follow up visit related to original px Jacob Cam Work Phone: [facility] Comment on above: S/P CABG x 1 (Primar y Dx) Start: 02-06-2019 End: 02-06-2019 Subsequent hospital visit by physician Kristin Walker Work Phone: [facility] Comment on above: S/P CABG (coronary a rtery bypass graft) Start: 02-02-2019 End: 02-04-2019 Subsequent hospital visit by physician Arvin Gilliam Work Phone: [facility] Comment on above: S/P CABG x 1 Start: 02-02-2019 End: 02-02-2019 Subsequent hospital visit by physician Kristin Walker Work Phone: [facility] Comment on above: Chest pain, unspecif ied type Start: 01-31-2019 End: 01-31-2019 Documentation procedure Kristin Walker Work Phone: [facility] Start: 01-31-2019 End: 01-31-2019 Postop follow up visit related to original px Kristin Walker Work Phone: [facility] Comment on above: S/P CABG (coronary a rtery bypass graft) (Primary Dx) Start: 01-31-2019 End: 01-31-2019 Subsequent hospital visit by physician Kristin Byrnes Work Phone: [facility] Comment on above: S/P CABG (coronary a rtery bypass graft) Start: 01-21-2019 End: 01-21-2019 Evaluation and management of inpatient Kristin Byrnes Work Phone: [facility] Start: 01-17-2019 End: 01-29-2019 Evaluation and management of inpatient Ana Weaver Work Phone: [facility] Comment on above: Chest pain, atypical (Primary Dx); Type 2 diabetes mellitus without complication, without long-term current use of insulin (HCC); Coronary artery disease, angina presence unspecified, unspecified vessel or lesion type, unspecified whether [place] or transplanted heart; Type 2 diabetes mellitus with other circulatory complications (HCC); S/P CABG x 1 Start: 01-04-2019 End: 01-04-2019 Emergency department patient visit Brian Carrizales Adalid Work Phone: [facility] Comment on above: COPD exacerbation (H CC) (Primary Dx) Start: 12-26-2018 End: 12-26-2018 Office outpatient visit 25 minutes Maykel Whitney Work Phone: [facility] Comment on above: Coronary artery dise ase involving [place] coronary artery of [place] heart with angina pectoris (HCC) (Primary Dx); Acute on chronic diastolic heart failure (HCC) Start: 12-25-2018 End: 12-25-2018 Subsequent hospital visit by physician Patricia Louis Work Phone: [facility] Comment on above: Chronic systolic con gestive heart failure (HCC) Start: 12-18-2018 End: 12-18-2018 Subsequent hospital visit by physician Patricia Louis Work Phone: [facility] Comment on above: Chronic systolic con gestive heart failure (HCC) Start: 12-10-2018 End: 12-10-2018 Subsequent hospital visit by physician Patricia Louis Work Phone: [facility] Comment on above: Chronic systolic hea rt failure (HCC); Hypertension, unspecified type; Coronary artery disease involving [place] coronary artery of [place] heart without angina pectoris Start: 11-26-2018 Refill Patricia Morales ax EL TEACHER Work Phone: [facility] Comment on above: Medication Refill Start: 09-27-2018 End: 09-27-2018 Emergency department patient visit Nathanael Valencia Work Phone: [facility] Comment on above: Acute exacerbation o f chronic obstructive pulmonary disease (COPD) (HCC) (Primary Dx) Start: 01-21-2018 End: 01-21-2018 Patient encounter procedure Other Other [facility] Start: 01-11-2018 End: 01-11-2018 Patient encounter procedure Sophia Llanos [facility] Comment on above: Other (ROSA Attempt.) Start: 01-08-2018 End: 01-09-2018 Patient encounter procedure Alaa Abran Facility:[facility] Start: 01-07-2018 Patient encounter procedure Patricia Louis Facility:[facility] Start: 01-07-2018 End: 01-07-2018 Office outpatient visit 25 minutes Patricia Louis Work Phone: [facility] Comment on above: Chronic systolic hea rt failure (HCC) (Primary Dx); Essential hypertension; Coronary artery disease involving [place] coronary artery of [place] heart without angina pectoris Start: 09-23-2017 End: 09-25-2017 Patient encounter procedure Sofie Daigle Facility:[facility] Start: 09-20-2017 End: 09-20-2017 Office outpatient visit 25 minutes Patricia Westbrookuax Work Phone: [facility] Start: 09-20-2017 Refill Patricia Westbrooku ax EL TEACHER Work Phone: [facility] Comment on above: Medication Refill Start: 09-11-2017 End: 09-11-2017 Emergency department patient visit Shailesh Monzon Facility:[facility] Start: 06-11-2017 Refill Izabel [facility] Start: 03-08-2017 End: 03-08-2017 Ambulatory Fitz Mg Work Phone: [facility] Start: 01-18-2017 End: 01-18-2017 Ambulatory Carola Lyle Work Phone: [facility] Start: 12-08-2016 Office outpatient vi sit 15 minutes Bev Tomás. Exten Work Phone: [facility] Start: 11-23-2016 Office outpatient vi sit 15 minutes Bev R. Exten Work Phone: [facility] Start: 11-02-2016 End: 11-02-2016 Office outpatient visit 15 minutes Bev R. Exten Work Phone: [facility] Comment on above: Leukocytosis, unspec ified type (Primary Dx) Start: 10-26-2016 End: 10-26-2016 Patient encounter procedure Bev R. Exten Work Phone: [facility] Start: 10-26-2016 Office/outpatient visit, est, level 4 Bev RHerberth Exten Work Phone: [facility] Start: 10-20-2016 End: 10-20-2016 Ambulatory Moises Patel Work Phone: [facility] Start: 10-20-2016 End: 10-20-2016 Ambulatory Moises Patel Work Phone: [facility] Start: 10-12-2016 End: 10-12-2016 Patient encounter procedure Moises Patel Work Phone: [facility] Start: 10-12-2016 End: 10-12-2016 Patient encounter procedure Moises Patel Work Phone: [facility] Start: 09-18-2016 End: 09-18-2016 Patient encounter procedure Patricia Westbrookuax Work Phone: [facility] Start: 09-18-2016 Office/outpatient visit, est, level 3 Patricia Anne Bowersx Work Phone: [facility] Start: 06-21-2016 Refill Patricia Anne Westbrooku ax EL TEACHER Work Phone: [facility] Comment on above: Medication Refill Start: 03-30-2016 Refill Patricia Anne Westbrooku ax EL TEACHER Work Phone: [facility] Comment on above: Medication Refill Start: 10-08-2015 Refill Patricia Rodríguez Andrew ax EL TE[employer]ER Work Phone: [facility] Comment on above: Medication Refill Procedures Date Procedure Procedure Detail Performing Clinician Start: 11-03-2023 Glucose measurement Paolo Patiño DO Work Phone: Start: 11-03-2023 Comprehensive metabo lic panel Taye Patiño DO Work Phone: Start: 11-02-2023 Glucose measurement Paolo Patiño DO Work Phone: Start: 11-02-2023 Glucose measurement [facility] Work Phone: Start: 11-02-2023 Cardiac catheterization Luiz Frank MD Work Phone: Start: 11-02-2023 Glucose measurement [facility] Work Phone: Start: 11-02-2023 Polymerase chain juana ction analysis Taye Patiño DO Work Phone: Start: 11-02-2023 End: 11-02-2023 Urnls dip stick/tablet reagent auto microscopy Taye Patiño DO Work Phone: Start: 11-02-2023 Glucose measurement [facility] Work Phone: Start: 11-02-2023 Comprehensive metabo lic panel Taye Patiño DO Work Phone: Start: 11-02-2023 Lipid panel Luiz boss MD Work Phone: Start: 11-01-2023 Glucose measurement [facility] Work Phone: Start: 11-01-2023 End: 11-01-2023 Comprehensive metabolic panel Taye Patiño DO Work Phone: Start: 11-01-2023 Glucose measurement [facility] Work Phone: Start: 04-02-2023 Ecg routine ecg w/le ast 12 lds w/i&r Anita Rowland MD Work Phone: Start: 03-29-2023 CARDIOVERSION Anita Rowland MD Work Phone: Start: 03-10-2023 ANGIOGRAM Anita Rowland MD Work Phone: Start: 12-07-2022 CT of left shoulder DO Jasen Campbell Work Phone: Start: 12-07-2022 Antibody screen Alexaesme Campbell Comment on above: Result Comment: PERF ORMED BY: [facility] [address] [place] [address] PATHOLOGIST COMFORT STATION ATTENDANT TIBURCIO POWERS M.D. Start: 12-07-2022 Plain X-ray [...] 10-16-2019 Glucose [Mass/volume ] in Blood Roby Martinez Work Phone: Start: 10-16-2019 Urinalysis Work [...] prohormone N-Terminal [Mass/volume] in Serum or Plasma Sasha Work Phone: Start: 10-15-2019 Troponin measurement La nacho Work Phone: Start: 10-15-2019 12 lead ECG Triage [facility] Start: 09-23-2019 Glucose [Mass/volume ] in Blood Neo Mcneil Work Phone: Start: 09-23-2019 Glucose [Mass/volume ] in Blood Neo Mcneil Work Phone: Start: 09-23-2019 Electrocardiogram Provi malinda Not In System Start: 09-23-2019 Mri brain brain stem w/o w/contrast material Ginny Rushing Work Phone: Start: 09-23-2019 Glucose [Mass/volume [...] Work Phone: Start: 09-22-2019 COVID-19, MOLECULAR Antoine guerda Weaver Work Phone: Start: 09-22-2019 Radiologic exam [...] 03-17-2019 MONITORED CARDIAC RE HAB SESSION Jazmin Long Start: 03-13-2019 Cv strs tst xers&/or rx cont ecg trcg only Carlo Daren Work Phone: Start: 02-25-2019 CT angiography of pu lmonary artery Faustojess Upton Clarion Work Phone: Start: 02-25-2019 Standard chest X-ray Mi cah Won Javon Work Phone: Start: 02-25-2019 UGALDE TOP Fausto Alejandro Work Phone: Start: 02-25-2019 LIGHT GREEN TOP Fausto Alejandro Work Phone: Start: 02-25-2019 RAINBOW DRAW Fausto Alejandro Work Phone: Start: 02-25-2019 Basic metabolic 2000 panel - Serum or Plasma Fausto Alejandro Work Phone: Start: 02-25-2019 Complete blood count with white cell differential, automated Fausto Alejandro Work Phone: Start: 02-25-2019 Complete blood count with white cell differential, manual Fausto Alejandro Work Phone: Start: 02-25-2019 INR in Platelet poor plasma by Coagulation assay Fausto Alejandro Work Phone: Start: 02-25-2019 Natriuretic peptide. B prohormone N-Terminal [Mass/volume] in Serum or Plasma Fausto Alejandro Work Phone: Start: 02-25-2019 Troponin measurement Mi ashleigh Alejandro Work Phone: Start: 02-25-2019 12 lead ECG Fausto Alejandro Work Phone: Start: 02-21-2019 Standard chest X-ray Br orion Cam Work Phone: Start: 02-13-2019 Standard chest X-ray Je patience Jarad Byrnes Work Phone: Start: 02-06-2019 Standard chest X-ray Je patience Gayle Walker Work Phone: Start: 02-04-2019 Glucose [Mass/volume ] in Blood Antia De Leon Janett Work Phone: Start: 02-04-2019 Radiologic exam ches [...] Start: 02-03-2019 CV IR LEFT THORACENTESIS Gilmer AminHerberth Zelaya Work Phone: Start: 02-03-2019 Glucose [Mass/volume [...] of arteri al blood gas studies Arvin Devendra Gilliam Work Phone: Start: 02-02-2019 OBTAIN ARTERIAL BLOO D GASES AND PERFORM Arvin NellieHerberth Mane Work Phone: Start: 02-02-2019 Complete blood count (hemogram) panel - Blood by Automated count Kristin Walker Work Phone: Start: 02-02-2019 Standard chest X-ray Nasim Walker Work Phone: Start: 01-31-2019 Standard chest X-ray Nasim Byrnes Work Phone: Start: 01-29-2019 End: 10-13-2019 History of coronary artery bypass grafting S/P CABG x 1 Anita Rowland MD Work Phone: Start: 01-29-2019 Glucose [Mass/volume ] in Blood Nova Braxtoned Diandra Work Phone: Start: 01-29-2019 12 lead ECG Kristin Chao gricelda Walker Work Phone: Start: 01-29-2019 Glucose [Mass/volume ] in Blood Nova Barrera Diandra Work Phone: Start: 01-29-2019 Basic metabolic 2000 panel - Serum or Plasma Kristin Gayle Walker Work Phone: Start: 01-29-2019 Complete blood [...] 01-28-2019 Glucose [Mass/volume ] in Blood Nova Chavarria Ayed Diandra Work Phone: Start: 01-28-2019 Glucose [Mass/volume ] in Blood Nova Chavarria Ayed Diandra Work Phone: Start: 01-28-2019 Glucose [Mass/volume ] in Blood Nova Chavarria Ayed Diandra Work Phone: Start: 01-28-2019 Glucose [Mass/volume ] in Blood Nova Chavarria Ayed Diandra Work Phone: Start: 01-28-2019 Radiologic exam ches t single view Kristin Walker Work Phone: Start: 01-28-2019 Basic metabolic 2000 panel - Serum or Plasma Kristin Walker Work Phone: Start: 01-28-2019 Complete blood count (hemogram) panel - Blood by Automated count Kristin Walker Work Phone: Start: 01-28-2019 Glucose [Mass/volume ] in Blood Nova Jim Work Phone: Start: 01-28-2019 Magnesium [Mass/volu me] in Serum or Plasma Krisitn Walker Work Phone: Start: 01-27-2019 Glucose [Mass/volume ] in Blood Nova Jim Work Phone: Start: 01-27-2019 Amylase measurement, body fluid Kristin Walker Work Phone: Start: 01-27-2019 Hepatic function 200 0 panel - Serum or Plasma Kristin Walker Work Phone: Start: 01-27-2019 Lipase [Enzymatic activity/volume] in Serum or Plasma Kristin Walker Work Phone: Start: 01-27-2019 Troponin measurement Nasim Walker Work Phone: Start: 01-27-2019 Glucose [Mass/volume ] in Blood Nova Jim Work Phone: Start: 01-27-2019 Radiography of [id number] Kristin Walker Work Phone: Start: 01-27-2019 Echography of chest, real time with image documentation Kristin Walker Work Phone: Start: 01-27-2019 Basic metabolic 2000 panel - Serum or Plasma Kristin Walker Work Phone: Start: 01-27-2019 Radiologic exam ches t single view Kristin Walker Work Phone: Start: 01-27-2019 Complete blood count (hemogram) panel - Blood by Automated count Kristin Gayle Walker Work Phone: Start: 01-27-2019 Magnesium [Mass/volu me] in Serum or Plasma Kristin Gayle Walker Work Phone: Start: 01-27-2019 Glucose [Mass/volume ] in Blood Chidimed Mohamed Ayed Diandra Work Phone: Start: 01-26-2019 [...] Radiologic exam ches t single view Kristin Walkergabrielle Walker Work Phone: Start: 01-26-2019 Glucose [Mass/volume ] in Blood Chidimed Mohamed Ayed Diandra Work Phone: Start: 01-26-2019 Basic metabolic 2000 panel - Serum or Plasma Kristin Gayle Walker Work Phone: Start: 01-26-2019 Complete blood count (hemogram) panel - Blood by Automated count Kristin Gayle Walker Work Phone: Start: 01-26-2019 Magnesium [Mass/volu me] in Serum or Plasma Kristin Gayle Walker Work Phone: Start: 01-26-2019 Glucose [Mass/volume ] in Blood Ahmed Mohamed Ayed Diandra Work Phone: Start: 01-25-2019 Glucose [Mass/volume ] in Blood Ahmed Mohamed Ayed Diandra Work Phone: Start: 01-25-2019 Glucose [Mass/volume ] in Blood Ahmed Mohamed Ayed Diandra Work Phone: Start: 01-25-2019 Glucose [Mass/volume ] in Blood Nova Barrera Diandra Work Phone: Start: 01-25-2019 Evaluation of arteri al blood gas studies Generic [facility] Work Phone: Start: 01-25-2019 OBTAIN ARTERIAL BLOO D GASES AND PERFORM Jacob Cam Work Phone: Start: 01-25-2019 12 lead ECG Jacob Cam Work Phone: Start: 01-25-2019 Glucose [Mass/volume ] in Blood Nova Barrera Diandra Work Phone: Start: 01-25-2019 Glucose [Mass/volume ] in Blood Nova Barrera Diandra Work Phone: Start: 01-25-2019 Glucose [Mass/volume ] in Blood Nova Barrera Diandra Work Phone: Start: 01-25-2019 Glucose [Mass/volume ] in Blood Nova Barrera Diandra Work Phone: Start: 01-25-2019 Radiologic exam ches t single view Kristin Walkergabrielle Walker Work Phone: Start: 01-25-2019 Basic metabolic 2000 panel - Serum or Plasma Kristinkyler Walker Work Phone: Start: 01-25-2019 Complete blood count (hemogram) panel - Blood by Automated count Kristin Gayle Walker Work Phone: Start: 01-25-2019 Magnesium [Mass/volu me] in Serum or Plasma Kristin Gayle Walker Work Phone: Start: 01-25-2019 Glucose [Mass/volume ] in Blood Nova Barrera Diandra Work Phone: Start: 01-25-2019 Glucose [Mass/volume ] in Blood Nova Barrera Diandra Work Phone: Start: 01-24-2019 Glucose [Mass/volume ] in Blood Nova Barrera Diandra Work Phone: Start: 01-24-2019 Glucose [Mass/volume ] in Blood Chidimed Aura Ayed Diandra Work Phone: Start: 01-24-2019 Glucose [Mass/volume ] in Blood Chidimed Aura Ayed Diandra Work Phone: Start: 01-24-2019 Glucose [Mass/volume ] in Blood Chidimed Aura Ayed Diandra Work Phone: Start: 01-24-2019 End: 01-24-2019 Glucose [Mass/volume] in Blood Chidimed Aura Ayed Diandra Work Phone: Start: 01-24-2019 Basic metabolic 2000 panel - Serum or Plasma Neo Mcneil Work Phone: Start: 01-24-2019 Calcium.ionized [Mass/volume] in Serum or Plasma Kristin Walker Work Phone: Start: 01-24-2019 Complete blood count with white cell differential, automated Kristin Walker Work Phone: Start: 01-24-2019 Complete blood count with white cell differential, manual Kristin Walker Work Phone: Start: 01-24-2019 INR in Platelet poor plasma by Coagulation assay Kristin Walker Work Phone: Start: 01-24-2019 Magnesium [Mass/volu me] in Serum or Plasma Kristin Walker Work Phone: Start: 01-24-2019 End: 01-24-2019 Glucose [Mass/volume] in Blood Nova Barrera Diandra Work Phone: Start: 01-24-2019 Glucose [Mass/volume ] in Blood Chidimed Aura Ayed Diandra Work Phone: Start: 01-24-2019 Evaluation of arteri al blood gas studies Generic [facility] Work Phone: Start: 01-24-2019 End: 01-24-2019 Glucose [Mass/volume] in Blood Nova Jim Work Phone: Start: 01-24-2019 Evaluation of arteri al blood gas studies Generic [facility] Work Phone: Start: 01-24-2019 Glucose [Mass/volume ] in Blood Nova Jim Work Phone: Start: 01-24-2019 Calcium.ionized [Mass/volume] in Serum or Plasma Kristin Abraham [employer]an [employer] Work Phone: Start: 01-24-2019 aPTT in Blood by Coa gulation assay Kristin Abraham [employer] Work Phone: Start: 01-24-2019 Basic metabolic 2000 panel - Serum or Plasma Kristin Jarad Infor Work Phone: Start: 01-24-2019 Complete blood count with white cell differential, automated Kristin Jarad Infor Work Phone: Start: 01-24-2019 Complete blood count with white cell differential, manual Kristin Jarad [employer] Work Phone: Start: 01-24-2019 Fibrinogen [Mass/vol ume] in Platelet poor plasma by Coagulation assay Kristin Jarad [employer]an [employer] Work Phone: Start: 01-24-2019 INR in Platelet poor plasma by Coagulation assay Kristin Abraham [employer] Work Phone: Start: 01-24-2019 Magnesium [Mass/volu me] in Serum or Plasma Kristin Abraham [employer] Work Phone: Start: 01-24-2019 Evaluation of arteri al blood gas studies [facility] Work Phone: Start: 01-24-2019 End: 01-24-2019 Radiologic exam chest single view Kristin Hernandezy Work Phone: Start: 01-24-2019 OBTAIN ARTERIAL BLOO D GASES AND PERFORM Kristin Walker Work Phone: Start: 01-24-2019 Activated partial thromboplastin time ratio Neo Mcneil Work Phone: Start: 01-24-2019 aPTT in Blood by Coa gulation assay Neo Mcneil Work Phone: Start: 01-24-2019 Complete blood count (hemogram) panel - Blood by Automated count Neo Mcneil Work Phone: Start: 01-24-2019 Fibrinogen [Mass/vol ume] in Platelet poor plasma by Coagulation assay Neo Mcneil Work Phone: Start: 01-24-2019 INR in Platelet poor plasma by Coagulation assay Neo Mcneil Work Phone: Start: 01-24-2019 Calcium ionized Chidimed M ohamed Ayed Diandra Work Phone: Start: 01-24-2019 Bacteria identified in Unspecified specimen by Aerobe culture Neo Mcneil Work Phone: Start: 01-24-2019 End: 01-24-2019 Calcium ionized Ahmed Mohamed Ayed E id Work Phone: Start: 01-24-2019 End: 01-24-2019 CORONARY ARTERY BYPASS GRAFT OFF PUMP Neo Mcneil Work Phone: Start: 01-24-2019 Packed RBC preparation Neo Mcneil Work Phone: Start: 01-24-2019 Radiologic exam ches t single view Kristin Abraham Fitz Work Phone: Start: 01-24-2019 aPTT in Blood by Coa gulation assay Maykel Whitney Work Phone: Start: 01-24-2019 Basic metabolic 2000 panel - Serum or Plasma Kristin Abraham Davidy Work Phone: Start: 01-24-2019 Blood type and Indir ect antibody screen panel - Blood Kristin Abraham Davidy Work Phone: Start: 01-24-2019 Complete blood count with white cell differential, automated Kristin Abraham Fitz Work Phone: Start: 01-24-2019 Complete blood count with white cell differential, manual Kristin Jarad Titley Work Phone: Start: 01-23-2019 Glucose [Mass/volume ] in Blood Nova Jim Work Phone: Start: 01-23-2019 Glucose [Mass/volume ] in Blood Nova Jim Work Phone: Start: 01-23-2019 Glucose [Mass/volume ] in Blood Nova Jim Work Phone: Start: 01-23-2019 aPTT in Blood by Coa gulation assay Maykel Whitney Work Phone: Start: 01-23-2019 Basic metabolic 2000 panel - Serum or Plasma Kristin Abraham Infor Work Phone: Start: 01-23-2019 Complete blood count with white cell differential, automated Kristin Abraham [employer] Work Phone: Start: 01-23-2019 Complete blood count with white cell differential, manual Kristin Lee Infor Work Phone: Start: 01-22-2019 Glucose [Mass/volume ] in Blood Nova Jim Work Phone: Start: 01-22-2019 aPTT in Blood by Coa gulation assay Carlo Mercedes Work Phone: Start: 01-22-2019 Glucose [Mass/volume ] in Blood Nova Jim Work Phone: Start: 01-22-2019 APTT - reference Maykel Gerson Devonte Work Phone: Start: 01-22-2019 Glucose [Mass/volume ] in Blood Nova Jim Work Phone: Start: 01-22-2019 Drugs of abuse urine screening test Kristin Abraham Infor Work Phone: Start: 01-22-2019 Urinalysis Krsitin Grijalva [employer] Work Phone: Start: 01-22-2019 APTT - reference Maykel Whitney Work Phone: Start: 01-22-2019 Basic metabolic 2000 panel - Serum or Plasma Kristin Jarad Infor Work Phone: Start: 01-22-2019 Complete blood count with white cell differential, automated Kristin Lee Infor Work Phone: Start: 01-22-2019 Complete blood count with white cell differential, manual Kristinpatience Abraham Infor Work Phone: Start: 01-21-2019 Glucose [Mass/volume ] in Blood Nova Jim Work Phone: Start: 01-21-2019 APTT - reference Mirna Rodriguez Work Phone: Start: 01-21-2019 Glucose [Mass/volume ] in Blood Nova Jim Work Phone: Start: 01-21-2019 Contrast echocardiography Kristin Jarad Infor Work Phone: Start: 01-21-2019 Glucose [Mass/volume ] in Blood Nova Jim Work Phone: Start: 01-21-2019 Bacteria identified in Unspecified specimen by Aerobe culture Kristin Lee [employer] Phone: Start: 01-21-2019 Standard chest X-ray Nasim janieregi Abraham Infor Work Phone: Start: 01-21-2019 Doppler ultrasonogra phy of artery of lower limb Kristin Lee Infor Work Phone: Start: 01-21-2019 COMPLETE PFT Kristin Grijalva Infor Work Phone: Start: 01-21-2019 Basic metabolic 2000 panel - Serum or Plasma Kristin Jarad Infor Work Phone: Start: 01-21-2019 Complete blood count with white cell differential, automated Kristin Lee Infor Work Phone: Start: 01-21-2019 Complete blood count with white cell differential, manual Kristin [employer] Work Phone: Start: 01-20-2019 Carotid artery doppl er assessment Kristin [employer] Work Phone: Start: 01-20-2019 Electrocardiogram Provi malinda Not In System Start: 01-20-2019 Cul bact xcpt urine blood/stool aerobic isol Kristin Abraham Infor Work Phone: Start: 01-20-2019 Evaluation of arteri al blood gas studies Generic [facility] Work Phone: Start: 01-20-2019 Amylase measurement, body fluid Kristin Abraham Infor Work Phone: Start: 01-20-2019 Blood type and Indir ect antibody screen panel - Blood Kristin Abraham Infor Work Phone: Start: 01-20-2019 Hemoglobin A1c/Hemoglobin.total in Blood Kristin Abraham Infor Work Phone: Start: 01-20-2019 Hepatic function 200 0 panel - Serum or Plasma Kristin Abraham Infor Work Phone: Start: 01-20-2019 INR in Platelet poor plasma by Coagulation assay Kristin Abraham Infor Work Phone: Start: 01-20-2019 Prealbumin [Mass/vol ume] in Serum or Plasma Kristin Abraham Infor Work Phone: Start: 01-20-2019 Thyrotropin [Units/v olume] in Serum or Plasma by Detection limit <= 0.005 mIU/L Kristin Abraham Infor Work Phone: Start: 01-20-2019 Thyroxine (T4) free [Mass/volume] in Serum or Plasma Kristin Abraham Infor Work Phone: Start: 01-20-2019 OBTAIN ARTERIAL BLOO D GASES AND PERFORM Kristin Byrnes Work Phone: Start: 01-20-2019 Cardiac catheterization Columba Rodriguez Work Phone: Start: 01-20-2019 aPTT in Blood by Coa gulation assay Cabrera Albertskandis Navarro Work Phone: Start: 01-20-2019 Basic metabolic [...] Automated count Meron Roper Work Phone: Start: 01-19-2019 APTT - reference [...] Work Phone: Start: 01-17-2019 D-dimer assay, quantitative eMron Roper Work Phone: Start: 01-17-2019 Troponin measurement Josie Roper Work Phone: Start: 01-17-2019 Troponin measurement Titus Weaver Work Phone: Start: 01-17-2019 Urinalysis Ana Weaver Work Phone: Start: 01-17-2019 Radiologic exam ches t single view Ana Weaver Work Phone: Start: 01-17-2019 Basic metabolic 2000 panel - Serum or Plasma Ana Weaver Work Phone: Start: 01-17-2019 Complete blood count with white cell differential, automated Ana Weaver Work Phone: Start: 01-17-2019 Complete [...] 01-04-2019 Albumin serum plasma /whole blood Brian Cordoba Work Phone: Start: 01-04-2019 Blood count complete auto&auto difrntl wbc Brian Cordoba Work Phone: Start: 01-04-2019 12 lead ECG Brian Cordoba Work Phone: Start: 12-25-2018 Cardiac mri w/wo con trast & further seq Patricia Louis Work Phone: Start: 12-10-2018 Contrast echocardiography Patricia Louis Work Phone: Start: 09-28-2018 Electrocardiogram Provi malinda Not In System Start: 09-28-2018 Assay of troponin quantitative [facility] Start: 09-28-2018 Natriuretic peptide [facility] Start: 09-27-2018 Assay of troponin quantitative [facility] Start: 09-27-2018 Fibrin dgradj produc ts d-dimer quantitative [facility] Start: 09-27-2018 Complete blood count with white cell differential, automated Nathanael Valencia Work Phone: Start: 09-27-2018 Complete blood count with white cell differential, manual Nathanael Valencia Work Phone: Start: 09-27-2018 Radiologic exam ches t single view Nathanael Valencia Work Phone: Start: 09-27-2018 Basic metabolic pane l calcium total [facility] Start: 09-27-2018 POC CBC AND DIFFERENTIAL Nathanael Valencia Work Phone: Start: 09-27-2018 End: 09-28-2018 12 lead ECG Nathanael Valencia Work Phone: Start: 05-27-2015 Colonoscopy Tiffany ovalle RN Plan of Treatment Date Care Activity Detail Author Start: 08-08-2036 Pneumococcal Vaccine: Ped or At-Risk (2 of 2 - PPSV23) Pneumococcal Vaccine: Ped or At-Risk (2 of 2 - PPSV23) [facility] Start: 12-07-2032 Tetanus vaccination Tetanus: Every 10yrs [facility] Start: 05-26-2025 Screening for malignant neoplasm of colon [facility] Start: 11-07-2023 Prostate specific antigen measurement PSA Level [facility] Start: 04-30-2023 End: 04-30-2023 Patient encounter procedure [facility] Start: 10-13-2022 COVID-19 Vaccine ( season) COVID-19 Vaccine ( season) [facility] Start: 10-13-2022 Influenza vaccination [facility] Start: 03-29-2022 End: 03-29-2022 Patient encounter procedure 03/29/2022 Office Visit Family Medicine Moises Patel MD [address] [place] [id number] [facility] Start: 02-05-2022 Hemoglobin A1c measurement A1C [facility] Start: 10-31-2021 End: 10-31-2021 Patient encounter procedure 10/31/2021 Office Visit Cardiology Anita Rowland MD [address] [place] [phone] [facility] Start: 10-13-2021 Influenza vaccination [facility] Start: 08-08-2021 Administration of herpes zoster vaccine Zoster Vaccines (1 of 2) [facility] Start: 08-08-2021 Prostate specific antigen measurement PROSTATE CANCER SCREENING DISCUSSION [facility] Start: 08-08-2021 Screening for malignant neoplasm of colon Flexible sigmoidoscopy [facility] Start: 08-08-2021 Zoster vaccine hzv live for subcutaneous use ZOSTER (SHINGLES) VACCINE (1 of 2) [facility] Start: 10-13-2020 Influenza vaccination [facility] Start: 10-01-2020 COVID-19 VACCINE (3 - Booster for Pfizer series) COVID-19 VACCINE (3 - Booster for Pfizer series) [facility] Start: 09-24-2020 End: 09-24-2020 Patient encounter procedure 09/24/2020 Office Visit Pulmonary Disease Valerie Carreno, STRIPPER SOFT P[employer]IC-ADVICE CLERK [address] [id number] [facility] Pulmonary Disease [facility] Start: 08-06-2020 COVID-19 Vaccine (2 - Pfizer 2-dose series) COVID-19 Vaccine (2 - Pfizer 2-dose series) [facility] Start: 08-06-2020 COVID-19 Vaccine (2 - Pfizer series) COVID-19 Vaccine (2 - Pfizer series) [facility] Start: 07-12-2020 End: 08-10-2021 Ultrasound duplex arterial arm left Ultrasound duplex arterial arm left Vascular Ultrasound Routine Other specified complications of surgical and medical care, not elsewhere classified, initial encounter Expected: 07/12/2020, Expires: 08/10/2021 [facility] Comment on above: Expected: 07/12/2020, Expires: Start: 07-09-2020 End: 07-09-2020 Patient encounter procedure 07/09/2020 Appointment Cardiology Anita Rowland MD [address] [place], [place] [id number] [facility] Start: 06-02-2020 Subsequent hospital visit by physician 06/02/2020 Hospital Encounter Cardiology Anita Rowland MD [address] [place] [address] [phone] [facility] Start: 05-28-2020 End: 05-28-2020 Appointment [facility] Start: 03-24-2020 HbA1c (Bld) [Mass fraction] A1C [facility] Start: 03-24-2020 Hemoglobin A1c measurement A1C [facility] Start: 02-26-2020 Screening for malignant neoplasm of lung Low-dose CT Lung Cancer Screen [facility] Start: 12-08-2019 End: 12-08-2019 Office Visit 12/08/2019 Office Visit Cardiology Anita Rowland MD [address] [place] [address] [phone] [facility] Start: 11-07-2019 End: 11-07-2019 Appointment 11/07/2019 Appointment Cardiology nAita Rowland MD [address] [place] [address] [phone] [facility] Start: 11-05-2019 End: 11-05-2019 Office Visit 11/05/2019 Office Visit Neurology Ginny Rushing CNP [address] [address] [phone] [facility] Start: 10-16-2019 End: 10-16-2019 Appointment 10/16/2019 Appointment Cardiology Anita Rowland MD [address] [place] [address] [phone] [facility] Start: 10-14-2019 Influenza vaccination Sequential Influenza Vaccine (#1) [facility] Start: 10-14-2019 Influenza vaccination given Sequential Influenza Vaccine (#1) [facility] Start: 09-30-2019 End: 09-30-2019 Office Visit 09/30/2019 Office Visit Cardiology Anita Rowland MD [address] [place] [address] [phone] [facility] Start: 07-31-2019 End: 07-31-2019 Appointment [facility] Start: 07-22-2019 HbA1c (Bld) [Mass fraction] A1C [facility] Start: 06-25-2019 End: 06-25-2019 Treatment 06/25/2019 Treatment Cardiac Carlo Berry MD [address] [place] [address] [phone] [facility] Start: 06-23-2019 End: 06-23-2019 Treatment 06/23/2019 Treatment Cardiac Carlo Berry MD [address] [place], [place] [address] [address] [phone] [facility] Start: 06-19-2019 End: 06-19-2019 Treatment 06/19/2019 Treatment [facility] [address] [facility] [place] [address] [phone] [facility] Start: 06-18-2019 End: 06-18-2019 Treatment 06/18/2019 Treatment Cardiac Carlo Berry MD [address] [place], [place] [address] [address] [phone] [facility] Start: 06-16-2019 End: 06-16-2019 Treatment 06/16/2019 Treatment Cardiac Carlo Berry MD [address] [place] [address] [phone] [facility] Start: 06-12-2019 End: 06-12-2019 Treatment 06/12/2019 Treatment Cardiac Carlo Berry MD [address] [place] [address] [phone] [facility] Start: 06-11-2019 End: 06-11-2019 Treatment 06/11/2019 Treatment Cardiac Carlo Berry MD [address] [place] [address] [phone] [facility] Start: 06-09-2019 End: 06-09-2019 Treatment 06/09/2019 Treatment Cardiac Rehabilitation Carlo Mercedes MD [address] [place], [place] [address] [address] [phone] [facility] Start: 06-05-2019 End: 06-05-2019 Treatment [facility] Start: 06-04-2019 End: 06-04-2019 Treatment [facility] Start: 06-02-2019 End: 06-02-2019 Treatment [facility] Start: 05-29-2019 End: 05-29-2019 Treatment [facility] Start: 05-28-2019 End: 05-28-2019 Treatment [facility] Start: 05-26-2019 End: 05-26-2019 Treatment [facility] Start: 05-22-2019 End: 05-22-2019 Treatment [facility] Start: 05-21-2019 End: 05-21-2019 Treatment [facility] Start: 05-19-2019 End: 05-19-2019 Treatment [facility] Start: 05-15-2019 End: 05-15-2019 Treatment [facility] Start: 05-14-2019 End: 05-14-2019 Treatment [facility] Start: 05-12-2019 End: 05-12-2019 Treatment [facility] Start: 05-08-2019 End: 05-08-2019 Treatment [facility] Start: 05-07-2019 End: 05-07-2019 Treatment [facility] Start: 05-05-2019 End: 05-05-2019 Treatment [facility] Start: 05-01-2019 End: 05-01-2019 Treatment [facility] Start: 04-30-2019 End: 04-30-2019 Treatment [facility] Start: 04-28-2019 End: 04-28-2019 Treatment [facility] Start: 04-24-2019 End: 04-24-2019 Treatment [facility] Start: 04-23-2019 End: 04-23-2019 Treatment [facility] Start: 04-21-2019 End: 04-21-2019 Treatment [facility] Start: 04-17-2019 End: 04-17-2019 Treatment [facility] Start: 04-16-2019 End: 04-16-2019 Treatment [facility] Start: 04-14-2019 End: 04-14-2019 Treatment [facility] Start: 04-10-2019 End: 04-03-2020 Basic metabolic 2000 panel Basic Metabolic Panel Lab Routine Medication management Expected: 04/10/2019, Expires: 04/03/2020 [facility] Comment on above: Expected: 04/10/2019, Expires: Start: 04-10-2019 End: 04-10-2019 Treatment [facility] Start: 04-09-2019 End: 04-09-2019 Treatment [facility] Start: 04-07-2019 End: 04-07-2019 Treatment [facility] Start: 04-03-2019 End: 04-03-2019 Treatment 04/03/2019 Treatment Cardiac Rehabilitation Carlo Mercedes MD [address] [place] [address] [phone] [facility] Start: 04-02-2019 End: 04-02-2019 Treatment [facility] Start: 03-31-2019 End: 03-31-2019 Treatment 03/31/2019 Treatment Cardiac Carlo Berry MD [address] [place] [address] [phone] [facility], Generic [facility] Start: 03-27-2019 End: 03-27-2019 Treatment 03/27/2019 Treatment Cardiac Carlo Berry MD [address] [place] [address] [phone] [facility], Generic [facility] Start: 03-26-2019 End: 03-26-2019 Treatment 03/26/2019 Treatment Cardiac Carlo Berry MD [address] [place] [address] [phone] [facility] Start: 03-24-2019 End: 03-24-2019 Treatment 03/24/2019 Treatment Cardiac Carlo Berry MD [address] [place] [address] [phone] [facility] Start: 03-20-2019 End: 03-20-2019 Treatment 03/20/2019 Treatment Cardiac Carlo Berry MD [address] [place] [address] [phone] [facility] Start: 03-19-2019 End: 03-19-2019 Treatment 03/19/2019 Treatment Cardiac Carlo Berry MD [address] [place] [address] [phone] [facility] Start: 03-17-2019 End: 03-17-2019 Treatment 03/17/2019 Treatment Cardiac Carlo Berry MD [address] [place] [address] [phone] [facility] Start: 03-13-2019 End: 03-13-2019 Appointment 03/13/2019 Appointment Cardiology Carlo Mercedes MD [address] [place] [address] [phone] [facility] Start: 03-11-2019 End: 03-11-2019 Office Visit 03/11/2019 Office Visit Cardiac Rehabilitation Kristin Walker PA-C [address] [place] [address] [phone] [facility] Rehab, [facility] Cardio Pulmonary Rehab Start: 03-07-2019 End: 03-07-2019 Office Visit 03/07/2019 Office Visit Cardiology Mansi Guevara, JIM [address] [place] [address] [phone] [facility] Start: 03-06-2019 End: 03-06-2019 Office Visit 03/06/2019 Office Visit Cardiology Carlo Mercedes MD [address] [place] [address] [phone] [facility] Start: 03-04-2019 End: 03-04-2019 Office Visit 03/04/2019 Office Visit Endocrinology Gianna Castle PA-C [address] [address] [phone] [facility] Endocrinology Physicians Start: 02-28-2019 End: 02-28-2019 Office Visit [facility] Start: 02-13-2019 End: 02-13-2019 Follow-Up 02/13/2019 Follow-Up Cardiology [facility] Start: 02-07-2019 End: 02-07-2019 Follow-Up 02/07/2019 Follow-Up Cardiology [facility] Start: 01-31-2019 End: 01-31-2019 Follow-Up 01/31/2019 Follow-Up Cardiology [facility] Start: 01-24-2019 End: 01-24-2019 Surgery 01/24/2019 Surgery Neo Mcneil MD [address] [place] [address] [phone] CABG W/SPARKS OFF PUMP [facility] Periop Comment on above: CABG W/SPARKS OFF PUMP Start: 01-22-2019 End: 01-22-2019 Office Visit 01/22/2019 Office Visit Cardiology Patricia Louis, CHRISTIAN [address] [place] [address] [phone] [facility] Heart Failure [facility] Start: 01-02-2019 End: 12-27-2019 Basic metabolic 2000 panel Basic metabolic panel Lab Routine Coronary artery disease involving [place] coronary artery of [place] heart with angina pectoris (HCC) Acute on chronic diastolic heart failure (HCC) Expected: 01/02/2019, Expires: 12/27/2019 [facility] Comment on above: Expected: 01/02/2019, Expires: 0 Start: 01-01-2019 End: 01-01-2019 Office Visit 01/01/2019 Office Visit Cardiology Patricia Louis, EL TEACHER [address] [place] [address] [phone] [facility] Heart Failure [facility] Start: 12-26-2018 End: 12-26-2018 Office Visit 12/26/2018 Office Visit Cardiology Maykel Whitney MD [address] [place] [address] [phone] [facility] Start: 12-25-2018 End: 12-25-2018 Appointment 12/25/2018 Appointment Radiology Patricia Louis, EL TEACHER [address] [place] [address] [phone] [facility] MRI Start: 12-24-2018 End: 12-24-2018 Office Visit 12/24/2018 Office Visit Cardiology Maykel Whitney MD [address] [place] [address] [phone] [facility] Start: 10-13-2018 Influenza vaccination given SEQUENTIAL INFLUENZA VACCINE (#1) [facility] Start: 01-21-2018 End: 01-21-2018 Ambulatory [facility] Failure [facility] Start: 12-21-2017 End: 12-21-2017 Ambulatory 12/21/2017 Office Visit Cardiology Patricia Louis, EL TEACHER [address] [place] [address] [phone] [facility] Failure [facility] Start: 11-09-2017 End: 11-09-2017 Ambulatory 11/09/2017 Office Visit Cardiology Torie Au MD [address] [place] [address] [phone] [facility] Start: 10-13-2017 Influenza vaccination [facility] Start: 01-02-2017 End: 11-02-2017 CBC and Differential CBC and Differential Routine Leukocytosis, unspecified type Expected: 01/02/2017 (Approximate), Expires: 11/02/2017 [facility] Work Phone: Comment on above: Expected: 01/02/2017 (Approximate), Expi res: 11/02/2017 Start: 01-02-2017 End: 01-02-2017 Ambulatory [facility] Cancer Physicians Start: 12-08-2016 Ambulatory 12/08/2016 Office Visit Oncology Bev Tolentino MD [address] [place] [address] [facility] Start: 11-24-2016 Ambulatory 11/24/2016 Hospital Encounter Bev Tolentino MD [address] [place] [phone] [facility] Start: 11-15-2016 Ambulatory 11/15/2016 Office Visit Cardiology Shailesh Mcdowell DO [address] [place] [address] [phone] [facility] Start: 11-03-2016 Ambulatory 11/03/2016 Office Visit Cardiology Patricia Louis CNS [address] [place] [address] [phone] [facility] Failure [facility] Start: 11-02-2016 Ambulatory 11/02/2016 Office Visit Oncology Bev Tolentino MD [address] [place] [address] [facility] Start: 10-26-2016 Ambulatory 10/26/2016 Office Visit Oncology Bev Tolentino MD [address] [place] [address] [facility] Start: 10-20-2016 Ambulatory 10/20/2016 Hospital Encounter Moises Patel MD [address] [place] [address] [phone] [facility] Start: 10-19-2016 Ambulatory 10/19/2016 Office Visit Cardiology Patricia Louis, EL TEACHER [address] [place] [address] [phone] [facility] Failure [facility] Start: 10-17-2016 Ambulatory 10/17/2016 Hospital Encounter Moises Patel MD [address] [place] [address] [phone] [facility] Start: 10-13-2016 Influenza vaccination SEQUENTIAL INFLUENZA VACCINE (#1) [facility] Work Phone: Start: 10-13-2016 SEQUENTIAL INFLUENZA VACCINE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 follow-up provider specified. Condition at Discharge: Good Disposition: Home I reviewed discharge recommendations with the patient in person. Patient instructions, including activity, were given to the patient/family at discharge. On day of discharge I saw Fernando Helton and spent: > 30 minutes on discharge. Completed by: Cabrera Navarro CNP on 11/03/23, 10:07 AM documented in this encounter [facility] 11-03-2023 Note Formatting of this n ote is different from the original. Cardiology Progress Note [facility] Cardiology Sign-Off Discharge Medications: Continue current cardiac medications at current doses, unlimited duration. Follow-up Imaging, Testing: No additional outpatient testing is recommended at this time. Follow-up Appointments: No cardiovascular followup needed unless additional cardiovascular issues arise. Additional Instructions Reviewed with Patient and/or Family: Compliance with follow-up. Compliance with medications. Diet Instructions: low fat and low salt. Return to Normal Activity: Please see post cath/site care instructions. Assessment/Plan: 1. Accelerated symptoms with chest discomfort and shortness of breath for the last 3 weeks. 2. Previous single-vessel CABG, SPARKS to LAD. 3. Uncontrolled diabetes, hemoglobin A1c 10.0 4. Continued tobacco abuse with smoking, did quit for short time after bypass but then went right back. 5. Hypertension 6. Hyperlipidemia 7. Obesity 8. GERD on Protonix 9. COPD 10. 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 Mild systolic dysfunction, last echocardiogram showing LV ejection fraction 41% 12. Mild hyponatremia, probably from elevated sugar, no obvious CHF. 13. Abnormal nuclear medicine myocardial perfusion stress test 05/07/2023, with fixed defect and deana-infarction ischemia anterior apical and septum with left ventricular ejection fraction 38%. Left heart catheterization was performed yesterday showing single-vessel severe [place] coronary artery disease involving his LAD with patent SPARKS to LAD with no significant disease. Normal left heart filling pressures. Right radial was used for access. Dressing is intact no neurovascular compromise noted. Minimal tenderness to access site. No chest pain shortness of breath. Feeling better overall sitting up on edge of bed eating breakfast. Euvolemic on examination. Plan: Thorough discussion with patient regarding his left heart catheterization results. He should continue on his home cardiac medication regimen. There is no need for outpatient follow-up with cardiology. He can follow-up with his primary care provider. He does complain of some clicking to his mid sternum where he had his bypass surgery at. Will leave to the discretion of primary team on whether or not they need to do a sternal x-ray. I will send in sublingual nitroglycerin tablets to have as needed. I will send this to his pharmacy in [facility]. From a cardiology standpoint we will sign off. LOS: 0 days Subjective: Mr. Helton denies chest pain, dyspnea, palpitations, peripheral swelling, or dizziness Objective: Vital signs in last 24 hours: Temp: [97.5 F (36.4 C)-98.1 F (36.7 C)] 98.1 F (36.7 C) Heart Rate: [68-85] 79 Resp: [16-19] 16 BP: (119-168)/(74-105) 147/93 Physical Exam: Alert, no acute distress JVP is not elevated Heart is regular rate and rhythm. No gallop or rub. No murmur. Right radial dressing dry and intact. No neurovascular compromise to RUE. Lungs are clear to ausculation bilaterally. Nonlabored respirations. Abdomen soft and nontender Lower extremities have no edema. New cardiac test results if any: Imaging: Lab Review Today's available lab reviewed. [facility] 11-03-2023 Miscellaneous Notes Cardiology Progress Note [facility] Cardiology Sign-Off Discharge Medications: Continue current cardiac medications at current doses, unlimited duration. Follow-up Imaging, Testing: No additional outpatient testing is recommended at this time. Follow-up Appointments: No cardiovascular followup needed unless additional cardiovascular issues arise. Additional Instructions Reviewed with Patient and/or Family: Compliance with follow-up. Compliance with medications. Diet Instructions: low fat and low salt. Return to Normal Activity: Please see post cath/site care instructions. Assessment/Plan: 1. Accelerated symptoms with chest discomfort and shortness of breath for the last 3 weeks. 2. Previous single-vessel CABG, SPARKS to LAD. 3. Uncontrolled diabetes, hemoglobin A1c 10.0 4. Continued tobacco abuse with smoking, did quit for short time after bypass but then went right back. 5. Hypertension 6. Hyperlipidemia 7. Obesity 8. GERD on Protonix 9. COPD 10. 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 Mild systolic dysfunction, last echocardiogram showing LV ejection fraction 41% 12. Mild hyponatremia, probably from elevated sugar, no obvious CHF. 13. Abnormal nuclear medicine myocardial perfusion stress test 05/07/2023, with fixed defect and deana-infarction ischemia anterior apical and septum with left ventricular ejection fraction 38%. Left heart catheterization was performed yesterday showing single-vessel severe [place] coronary artery disease involving his LAD with patent SPARKS to LAD with no significant disease. Normal left heart filling pressures. Right radial was used for access. Dressing is intact no neurovascular compromise noted. Minimal tenderness to access site. No chest pain shortness of breath. Feeling better overall sitting up on edge of bed eating breakfast. Euvolemic on examination. Plan: Thorough discussion with patient regarding his left heart catheterization results. He should continue on his home cardiac medication regimen. There is no need for outpatient follow-up with cardiology. He can follow-up with his primary care provider. He does complain of some clicking to his mid sternum where he had his bypass surgery at. Will leave to the discretion of primary team on whether or not they need to do a sternal x-ray. I will send in sublingual nitroglycerin tablets to have as needed. I will send this to his pharmacy in [facility]. From a cardiology standpoint we will sign off. LOS: 0 days Subjective: Mr. Helton denies chest pain, dyspnea, palpitations, peripheral swelling, or dizziness Objective: Vital signs in last 24 hours: Temp: [97.5 F (36.4 C)-98.1 F (36.7 C)] 98.1 F (36.7 C) Heart Rate: [68-85] 79 Resp: [16-19] 16 BP: (119-168)/(74-105) 147/93 Physical Exam: Alert, no acute distress JVP is not elevated Heart is regular rate and rhythm. No gallop or rub. No murmur. Right radial dressing dry and intact. No neurovascular compromise to RUE. Lungs are clear to ausculation bilaterally. Nonlabored respirations. Abdomen soft and nontender Lower extremities have no edema. New cardiac test results if any: Imaging: Lab Review Today's available lab reviewed. Problem: Actual or potential alteration in health Goal: Absence of healthcare acquired conditions Outcome: Partially Met Goal: Knowledge of Interdisciplinary Plan of Care Outcome: Partially Met Goal: Knowledge of Enviroment Outcome: Partially Met Problem: Pain Goal: Reduced pain sensation Outcome: Partially Met Goal: Control of acute pain to acceptable level Outcome: Partially Met Goal: Able to cope with pain Outcome: Partially Met Goal: Able to achieve maximum level of physical functioning Outcome: Partially Met Goal: Able to achieve maximum level of psychosocial functioning Outcome: Partially Met Problem: Actual or potential alteration in health Goal: Absence of healthcare acquired conditions 11/02/2023 0754 by Lisa Guzman RN Outcome: Partially Met 11/01/2023 183 by Lisa Guzman RN Outcome: Partially Met Goal: Knowledge of Interdisciplinary Plan of Care 11/02/2023 075 by Lisa Guzman RN Outcome: Partially Met 11/01/2023 183 by Lisa Guzman RN Outcome: Partially Met Goal: Knowledge of Enviroment 11/02/2023 075 by Lisa Guzman RN Outcome: Partially Met 11/01/2023 183 by Lisa Guzman RN Outcome: Partially Met Problem: Pain Goal: Reduced pain sensation 11/02/2023 0754 by Lisa Guzman RN Outcome: Partially Met 11/01/2023 183 by Lisa Guzman RN Outcome: Partially Met Goal: Control of acute pain to acceptable level 11/02/2023 075 by Lisa Guzman RN Outcome: Partially Met 11/01/2023 183 by Lisa Guzman RN Outcome: Partially Met Goal: Able to cope with pain 11/02/2023 0754 by Lisa Guzman RN Outcome: Partially Met 11/01/2023 183 by Lisa Guzman RN Outcome: Partially Met Goal: Able to achieve maximum level of physical functioning 11/02/2023 0754 by Lisa Guzman RN Outcome: Partially Met 11/01/2023 183 by Lisa Guzman RN Outcome: Partially Met Goal: Able to achieve maximum level of psychosocial functioning 11/02/2023 0754 by Lisa Guzman RN Outcome: Partially Met 11/01/2023 183 by Lisa Guzman RN Outcome: Partially Met Problem: Actual or potential alteration in health Goal: Absence of healthcare acquired conditions Outcome: Partially Met Goal: Knowledge of Interdisciplinary Plan of Care Outcome: Partially Met Goal: Knowledge of Enviroment Outcome: Partially Met Problem: Pain Goal: Reduced pain sensation Outcome: Partially Met Goal: Control of acute pain to acceptable level Outcome: Partially Met Goal: Able to cope with pain Outcome: Partially Met Goal: Able to achieve maximum level of physical functioning Outcome: Partially Met Goal: Able to achieve maximum level of psychosocial functioning Outcome: Partially Met Problem: Actual or potential alteration in health Goal: Absence of healthcare acquired conditions Outcome: Partially Met Goal: Knowledge of Interdisciplinary Plan of Care Outcome: Partially Met Goal: Knowledge of Enviroment Outcome: Partially Met Problem: Pain Goal: Reduced pain sensation Outcome: Partially Met Goal: Control of acute pain to acceptable level Outcome: Partially Met Goal: Able to cope with pain Outcome: Partially Met Goal: Able to achieve maximum level of physical functioning Outcome: Partially Met Goal: Able to achieve maximum level of psychosocial functioning Outcome: Partially Met Dr. Patiño aware patient on unit. documented in this encounter [facility] 11-03-2023 Note Formatting of this n ote might be different from the original. Problem: Actual or potential alteration in health Goal: Absence of healthcare acquired conditions Outcome: Partially Met Goal: Knowledge of Interdisciplinary Plan of Care Outcome: Partially Met Goal: Knowledge of Enviroment Outcome: Partially Met Problem: Pain Goal: Reduced pain sensation Outcome: Partially Met Goal: Control of acute pain to acceptable level Outcome: Partially Met Goal: Able to cope with pain Outcome: Partially Met Goal: Able to achieve maximum level of physical functioning Outcome: Partially Met Goal: Able to achieve maximum level of psychosocial functioning Outcome: Partially Met [facility] 11-02-2023 Note Procedure Laterality Anesthesia Left Heart Cath w/Grafts N/A Coronary Angiogram N/A PACS Images Show images for Cardiac Catheterization Pre Procedure Diagnosis accelerated angina Post Procedure Diagnosis CAD Conclusion Impression: Single vessel severe [place] coronary artery disease Patent SPARKS to LAD with no significant disease Normal left heart filling pressures Recommendations: Continue medical therapy Follow-up with primary care physician Evaluate for non-cardiac etiologies Coronary Findings Diagnostic Dominance: Right Left Main The vessel was visualized by angiography, is moderate in size and is angiographically normal. Left Anterior Descending Prox LAD lesion is 100% stenosed. The lesion was previously treated using a stent of unknown type. Left Circumflex The vessel was visualized by angiography and is moderate in size. The vessel exhibits minimal luminal irregularities. Right Coronary Artery The vessel was visualized by angiography, is moderate in size and is angiographically normal. SPARKS Graft To Mid LAD The graft was visualized by angiography and is moderate in size. The graft is angiographically normal. Intervention No interventions have been documented. Wall Motion Left Heart Findings Left Ventricle LV systolic pressure is normal. LV end diastolic pressure is normal. Left Atrium Mitral Valve Aortic Valve Complications No complications were associated with this study. Documented by Artur Victor MD - 11/02/2023 4:43 PM AUTHENTICATED BY ARTUR VICTOR, ON 11/02/2023 16:44:55 [facility] 11-02-2023 Procedure note Images from the original note were not included. Procedure Laterality Anesthesia Left Heart Cath w/Grafts N/A Coronary Angiogram N/A PACS Images Show images for Cardiac Catheterization Pre Procedure Diagnosis accelerated angina Post Procedure Diagnosis CAD Conclusion Impression: Single vessel severe [place] coronary artery disease Patent SPARKS to LAD with no significant disease Normal left heart filling pressures Recommendations: Continue medical therapy Follow-up with primary care physician Evaluate for non-cardiac etiologies Coronary Findings Diagnostic Dominance: Right Left Main The vessel was visualized by angiography, is moderate in size and is angiographically normal. Left Anterior Descending Prox LAD lesion is 100% stenosed. The lesion was previously treated using a stent of unknown type. Left Circumflex The vessel was visualized by angiography and is moderate in size. The vessel exhibits minimal luminal irregularities. Right Coronary Artery The vessel was visualized by angiography, is moderate in size and is angiographically normal. SPARKS Graft To Mid LAD The graft was visualized by angiography and is moderate in size. The graft is angiographically normal. Intervention No interventions have been documented. Wall Motion Left Heart Findings Left Ventricle LV systolic pressure is normal. LV end diastolic pressure is normal. Left Atrium Mitral Valve Aortic Valve Complications No complications were associated with this study. Documented by Artur Victor MD - 11/02/2023 4:43 PM [facility] Work Phone: 11-02-2023 Procedure note Images from the original note were not included. Procedure Laterality Anesthesia Left Heart Cath w/Grafts N/A Coronary Angiogram N/A PACS Images Show images for Cardiac Catheterization Pre Procedure Diagnosis accelerated angina Post Procedure Diagnosis CAD Conclusion Impression: Single vessel severe [place] coronary artery disease Patent SPARKS to LAD with no significant disease Normal left heart filling pressures Recommendations: Continue medical therapy Follow-up with primary care physician Evaluate for non-cardiac etiologies Coronary Findings Diagnostic Dominance: Right Left Main The vessel was visualized by angiography, is moderate in size and is angiographically normal. Left Anterior Descending Prox LAD lesion is 100% stenosed. The lesion was previously treated using a stent of unknown type. Left Circumflex The vessel was visualized by angiography and is moderate in size. The vessel exhibits minimal luminal irregularities. Right Coronary Artery The vessel was visualized by angiography, is moderate in size and is angiographically normal. SPARKS Graft To Mid LAD The graft was visualized by angiography and is moderate in size. The graft is angiographically normal. Intervention No interventions have been documented. Wall Motion Left Heart Findings Left Ventricle LV systolic pressure is normal. LV end diastolic pressure is normal. Left Atrium Mitral Valve Aortic Valve Complications No complications were associated with this study. Documented by Artur Victor MD - 11/02/2023 4:43 PM documented in this encounter [facility] 11-02-2023 Hospital Discharge instructions Lisette Arredondo RN - 11/02/2023 1:14 PM EDT [facility] Post Cardiac Catheterization Discharge Instructions Site Care Leave Bandage in place the night of your catheterization. Watch for any bleeding or oozing from the site. If this occurs, lie flat and place direct pressure on the bandage for 20 minutes. If bleeding reoccurs call [facility]. For groins, remove your bandage the following [...] shower 24 hours after the procedure. Call [facility] at [phone] if you notice any of the following: [...] need of prescription assistance, please notify the [facility] nurse or call the office. If you were prescribed Plavix (clopidogrel), Effient (prasugrel), or Brilinta (ticagrelar) after your procedure, DO NOT STOP taking this medication unless told to do so by your [facility] massage coordinator. Follow up appointments, tests or procedures will be on your discharge paperwork under What's next. Please call [facility] at [phone] to reschedule any appointments if needed or if you have any questions or concerns. Thank you! documented in this encounter [facility] 11-02-2023 Note [facility] PROGRESS NOTE Assessment and Plan Fernando Helton is a 53 y.o. male patient of Moises Patel MD with history of anxiety, CAD s/p PCI and CABG to the left main, CHF, V-fib arrest, chronic sinusitis, cluster headache, COPD, previous coronary stent thrombosis, type 2 diabetes mellitus, GERD, hepatic hemangioma, hypertension, dyslipidemia, metabolic syndrome, ISAC, orthostatic dizziness, HFrEF, previous pericarditis presented to [facility] on 11/01/2023 with chest pain. Acute chest pain HFrEF CAD/PCI and CABG Hypertension Dyslipidemia History of V-fib arrest Troponin 16 EKG showed NSR with HR of 99 bpm, abnormal ST on lead II, D-dimer, BNP WNL Admit to [facility] with telemetry Trend down troponin Last echo reviewed on 05/2023 which showed LVEF of 41%, grade 1 diastolic dysfunction Controlle pain Repeat echo Replete electrolyte as needed keep k>4, Phos > 3, Mag >2 If troponin is trending up, will start heparin drip Continue aspirin and statin consult cardiology, referred from Dr. Mondragon for possible stress test versus [facility] Cardiology planning on doing Left heart cath today Will follow Leukocytosis Productive cough WBC on admission 14 CXR reviewed did not show any acute intrapulmonary process Follow-up UA Check respiratory panel No need to start antibiotic at this moment COPD No acute exacerbation DuoNeb as needed Cluster headache Tremors and jerking As needed Fioricet and continue to monitor Type 2 diabetes mellitus Last A1c 14.8 last year Repeat A1c Patient is currently on no insulin Sliding scale to keep BG between 140 and 180 Tobacco use disorder Still smoking but promised to stop Counseled about smoking cessation Nicotine patch as needed Insomnia Melatonin GERD PPI Restless leg syndrome Ropinirole Morbid obesity BMI 43.09 ISAC CPAP Resolved acute medical issues Discharge Planning Medically Stable for Discharge Date: TBD Patient requires continued hospitalization due to: Left heart cath today Discharge Location: home Quality Measures DVT Prophylaxis: heparin subcutaneous Rodriguez Catheter: absent Subjective No complaints this am; still having some tightness to the chest ; discussed plan for the day Objective BP 137/84 Pulse 76 Temp 97.5 degrees F (36.4 degrees C) (Oral) Resp 16 Ht 5' 6 Wt 121.5 kg (267 lb 13.7 oz) SpO2 94% BMI 43.23 kg/m Physical Examination General Appearance: alert; acutely ill appearing; in no acute distress HEENT: Head- normocephalic; Eyes- EOMI, sclera anicteric; Throat- mucous membranes moist Cardiovascular: regular rate and rhythm; normal S1, S2; no murmurs, rubs, clicks or gallops; peripheral edema absent Respiratory: lungs clear to auscultation; without wheezes, rales or rhonchi; on room air Abdomen: obese soft, non-tender, non-distended Neurological: oriented x 3; normal speech; no focal findings or movement disorder noted Musculoskeletal: no significant deformity or tenderness to palpation Skin: normal coloration Psych: normal mood and affect AUTHENTICATED BY CABRERA NAVARRO, ON 11/02/2023 11:52:24 [facility] 11-02-2023 History of Present illness Narrative [facility] PROGRESS NOTE Assessment and Plan Fernando Helton is a 53 y.o. male patient of [facility] with history of anxiety, CAD s/p PCI and CABG to the left main, CHF, V-fib arrest, chronic sinusitis, cluster headache, COPD, previous coronary stent thrombosis, type 2 diabetes mellitus, GERD, hepatic hemangioma, hypertension, dyslipidemia, metabolic syndrome, ISAC, orthostatic dizziness, HFrEF, previous pericarditis presented to [facility] on 11/01/2023 with chest pain. Acute chest pain HFrEF CAD/PCI and CABG Hypertension Dyslipidemia History of V-fib arrest Troponin 16 EKG showed NSR with HR of [address], [address] on lead II, D-dimer, BNP WNL Admit to [facility] with telemetry Trend down troponin Last echo reviewed on 05/2023 which showed LVEF of 41%, grade 1 diastolic dysfunction Controlle pain Repeat echo Replete electrolyte as needed keep k>4, Phos > 3, Mag >2 If troponin is trending up, will start heparin drip Continue aspirin and statin consult cardiology, referred from Dr. Mondragon for possible stress test versus [facility] Cardiology planning on doing Left heart cath today Will follow Leukocytosis Productive cough WBC on admission 14 CXR reviewed did not show any acute intrapulmonary process Follow-up UA Check respiratory panel No need to start antibiotic at this moment COPD No acute exacerbation DuoNeb as needed Cluster headache Tremors and jerking As needed Fioricet and continue to monitor Type 2 diabetes mellitus Last A1c 14.8 last year Repeat A1c Patient is currently on no insulin Sliding scale to keep BG between 140 and 180 Tobacco use disorder Still smoking but promised to stop Counseled about smoking cessation Nicotine patch as needed Insomnia Melatonin GERD PPI Restless leg syndrome Ropinirole Morbid obesity BMI 43.09 ISAC CPAP Resolved acute medical issues Discharge Planning Medically Stable for Discharge Date: TBD Patient requires continued hospitalization due to: Left heart cath today Discharge Location: home Quality Measures DVT Prophylaxis: heparin subcutaneous Rodriguez Catheter: absent Subjective No complaints this am; still having some tightness to the chest ; discussed plan for the day Objective BP 137/84 Pulse 76 Temp 97.5 F (36.4 C) (Oral) Resp 16 Ht 5' 6 Wt 121.5 kg (267 lb 13.7 oz) SpO2 94% BMI 43.23 kg/m Physical Examination General Appearance: alert; acutely ill appearing; in no acute distress HEENT: Head- normocephalic; Eyes- EOMI, sclera anicteric; Throat- mucous membranes moist Cardiovascular: regular rate and rhythm; normal S1, S2; no murmurs, rubs, clicks or gallops; peripheral edema absent Respiratory: lungs clear to auscultation; without wheezes, rales or rhonchi; on room air Abdomen: obese soft, non-tender, non-distended Neurological: oriented x 3; normal speech; no focal findings or movement disorder noted Musculoskeletal: no significant deformity or tenderness to palpation Skin: normal coloration Psych: normal mood and affect documented in this encounter [facility] 11-02-2023 Consult note Associated Order (s): IP CONSULT TO CARDIOLOGY General Cardiology Inpatient Consult Heart & Vascular [facility] 11/02/2023 Luiz Frank MD [facility] Patient: Fernando Helton Date of : 1970 (53 y.o.) Referring Provider: Refer to consult order in electronic medical record PCP: Moises Patel MD Assessment/Plan: 1. Accelerated symptoms with chest discomfort and shortness of breath for the last 3 weeks. 2. Previous single-vessel CABG, SPARKS to LAD. 3. Uncontrolled diabetes, hemoglobin A1c 10.0 4. Continued tobacco abuse with smoking, did quit for short time after bypass but then went right back. 5. Hypertension 6. Hyperlipidemia 7. Obesity 8. GERD on Protonix 9. COPD 10. 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 Mild systolic dysfunction, last echocardiogram showing LV ejection fraction 41% 12. Mild hyponatremia, probably from elevated sugar, no obvious CHF. 13. Abnormal nuclear medicine myocardial perfusion stress test 05/07/2023, with fixed defect and deana-infarction ischemia anterior apical and septum with left ventricular ejection fraction 38%. PLAN: 1. Since patient had nuclear stress test in April 2023 and it was abnormal with mostly fixed defect and deana-infarction ischemia, cardiac catheterization and bypass graft angiography and coronary angiogram with possible PCI is recommended. 2. Especially because he continues to smoke and has uncontrolled diabetes with hemoglobin A1c 10.0, I would think that he is more likely to progress with atherosclerotic disease. 3. Patient is agreeable for cardiac catheterization and coronary angiography as he has not felt good for the last [address] 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 He does have mild to moderate left ventricular systolic dysfunction. Will keep him n.p.o. and start normal saline at 100 cc/h and he will sign the consent for the procedure. The procedure potential risk and alternatives were fully discussed, all signs were with the test from prior experience. 4. Does have some coughing but no real infection or pneumonia on the chest x-ray, just the chronic smoker's cough with some worsening. Subjective Reason for Consultation: Chest discomfort, shortness of breath for last 3 weeks. History of Present Illness: Fernando Helton is a 53 y.o. male has been progressively short of breath for the last 3 weeks and had severe chest tightness across the chest associated with shortness of breath and some coughing. He has COPD from continued smoking but does not have to use any nebulizer. He had seen the massage coordinator in the office recently and was supposed to have outpatient stress test in the near future. Imaging: I independently reviewed the EKG and agree with the interpretation(s) with the following comments. EKG shows old inferior and anterior infarct with sinus rhythm some nonspecific T wave changes. Echocardiogram on 05/07/2023 had shown LV ejection fraction 41% with wall motion abnormality of the anterior wall apex and septum consistent with previous myocardial infarction. EKG 12-lead Final Result by Interface, Lab Results In [place] (11/01/2023 6029) Echocardiogram complete w contrast Final Result by Emma Atkinson MD (05/30/2023 1336) Echocardiogram limited with contrast Final Result by (01/27/2019 0822) Stress test only, exercise Final Result by Emma Aktinson MD (03/13/2019 1441) Cardiac Catheterization Final Result by Anita Rowland MD (06/02/2020 1127) Review of Systems: The following system(s) were reviewed and negative. Pertinent positive and negative findings are noted in the HPI. [x] Const [x] Eyes [x] ENT [x] Resp, some wheezing uses inhalers, has nebulizer but never used it. Trying to quit cigarettes [] CV [x] GI [x] [x] Neuro [x] Musc [x] Skin [x] Psych [x] Endo [x] Allergy [x] Heme/Lymph Past Medical History: Diagnosis Date Acute respiratory failure (HCC) 09/2014 requring mechanical ventilation Anxiety Bilateral lower extremity edema R > L CAD (coronary artery disease) CAD s/p [facility] with 1 stent in left main 07/2012, replaced 09/2014 Cardiac arrest with ventricular fibrillation (HCC) 09/25/2014 CHF (congestive heart failure), NYHA class I, chronic, diastolic ([facility]) Chronic sinusitis Claudication of right lower extremity (HCC) Cluster headache COPD (chronic obstructive pulmonary disease) ([facility]) 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 Effient Deviated septum Diabetes mellitus ([facility]) GERD (gastroesophageal reflux disease) Hepatic hemangioma R lobe HLD (hyperlipidemia) HTN (hypertension) Internal hemorrhoids Leukocytosis 11/2016 chronic; evaluation by Dr. Bev Tolentino Metabolic syndrome Mood disorder ([facility]) Nasal fracture Obstructive sleep apnea noncompliant with [...] Heart Cath; Surgeon: Carlo Mercedes MD; [facility]; Service: Cardiovascular HC LEFT HEART CATH N/A 06/02/2020 Procedure: Left Heart Cath; Surgeon: Anita Rowland MD; [facility]; Service: Cardiovascular IABP placement 05/09/[address] [...] Brother Social History Tobacco Use Smoking Status Every Day Current packs/day: 0.50 Average packs/day: 0.5 packs/day for 37.7 years (18.9 ttl pk-yrs) Types: Cigarettes Start date: 1986 Smokeless Tobacco Never Additional History Comments: None Allergies: Imdur [isosorbide mononitrate] Current Facility-Administered Medications Medication Dose Route Frequency Provider Last Rate Last Admin acetaminophen (TYLENOL) tablet 650 mg 650 mg Oral Q4H PRN Taye Patiño DO 650 mg at 11/01/23 2224 albuterol inhaler 2 puff 2 puff Inhalation Q4H PRN Taye Patiño DO aluminum-magnesium hydroxide-simethicone (MAALOX PLUS) 200-200-20 mg/5 mL suspension 30 mL 30 mL Oral Q4H PRN Taye Patiño DO aspirin EC tablet 81 mg 81 mg Oral Daily Taye Patiño DO 81 mg at 11/02/23 0857 atorvastatin (LIPITOR) tablet 40 mg 40 mg Oral Daily Taye Patiño DO 40 mg at 11/02/23 0857 HYDROmorphone (DILAUDID) injection 0.5 mg 0.5 mg Intravenous Q4H PRN Delmi Donis MD 0.5 mg at 11/02/23 0656 insulin lispro (AdmeLOG,HumaLOG) injection 0-15 Units 0-15 Units Subcutaneous at bedtime Taye Patiño DO insulin lispro (AdmeLOG,HumaLOG) injection 0-30 Units 0-30 Units Subcutaneous TID AC Taye Patiño DO 6 Units at 11/02/23 0813 ipratropium-albuteroL (DUO-NEB) 0.5-2.5 mg/3 ml nebulizer solution 3 mL 3 mL Inhalation Q6H PRN Taye Patiño DO losartan (COZAAR) tablet 25 mg 25 mg Oral Daily Taye Patiño DO 25 mg at 11/02/23 0857 metoprolol succinate (TOPROL-XL) 24 hr tablet 25 mg 25 mg Oral Daily Taye Patiño DO 25 mg at 11/02/23 0857 naloxone (NARCAN) injection 0.1 mg 0.1 mg Intravenous PRN Delmi Donis MD And naloxone (NARCAN) injection 0.4 mg 0.4 mg Intravenous PRN Delmi Donis MD ondansetron (ZOFRAN-ODT) disintegrating tablet 4 mg 4 mg Oral Q6H PRN Taye Patiño DO Or ondansetron (ZOFRAN) injection 4 mg 4 mg Intravenous Q6H PRN Taye Patiño DO pantoprazole (PROTONIX) EC tablet 40 mg 40 mg Oral Daily aTye Patiño DO 40 mg at 11/02/23 0857 senna (SENOKOT) tablet 8.6 mg 1 tablet Oral BID PRN Taye Patiño DO sodium chloride 0.9% (NS) 100 mL/hr Intravenous Continuous Luiz Frank MD 100 mL/hr at 11/02/23 1029 100 mL/hr at 11/02/23 1029 Current Outpatient Medications Medication Sig Dispense Refill aspirin 81 MG EC tablet Take 1 (one) tablet (81 mg total) by mouth daily . atorvastatin (Lipitor) 40 MG tablet Take 1 (one) tablet (40 mg total) by mouth daily . 90 tablet 3 metoprolol succinate (Toprol XL) 25 MG 24 hr tablet Take 1 (one) tablet (25 mg total) by mouth daily . 90 tablet 3 omeprazole (PRILOSEC) 40 MG capsule Take 1 (one) capsule (40 mg total) by mouth daily . 30 capsule 0 albuterol 90 mcg/actuation inhaler Inhale 2 (two) puffs every 4 (four) hours as needed for shortness of breath or cough . 18 g 0 insulin aspart U-100 (NovoLOG Flexpen U-100 Insulin) 100 unit/mL (3 mL) InPn Inject 5 (five) Units under the skin 3 (three) times a day before meals . (Patient not taking: Reported on 11/01/2023 .) 15 mL 0 insulin glargine (Lantus Solostar U-100 Insulin) 100 unit/mL (3 mL) InPn Inject 18 (eighteen) Units under the skin nightly . (Patient not taking: Reported on 11/01/2023 .) 15 mL 0 losartan (COZAAR) 25 MG tablet Take 1 (one) tablet (25 mg total) by mouth daily . 90 tablet 3 metFORMIN (GLUCOPHAGE-XR) 750 MG 24 hr tablet Take 1 (one) tablet (750 mg total) by mouth daily with breakfast . (Patient not taking: Reported on 11/01/2023 .) 30 tablet 0 pen needle, diabetic 31 gauge x 5/16 Ndle To use with insulin pen 100 each 0 Objective: Physical Examination: BP 137/84 Pulse 76 Temp 97.5 F (36.4 C) (Oral) Resp 16 Ht 5' 6 Wt 121.5 kg (267 lb 13.7 oz) SpO2 94% BMI 43.23 kg/m Constitutional: Alert, well appearing, not in distress.? Eyes: Conjunctivae/corneas clear. Lungs: Clear to auscultation, no wheezes, rales or rhonchi. Cardiovascular: Normal rate and regular rhythm, S1 and S2 normal, no murmurs noted, no carotid bruit, no pedal edema, no JVD. Abdomen: Soft, nontender with normal active bowel sounds; no masses or organomegaly. Skin: Normal coloration and turgor; no rashes or lesions. Musculoskeletal: Normal Range of Motion (ROM) Psych: Oriented to time, person, and place; appropriate mood. Lab Results Component Value Date CHOL 155 09/22/2019 LDLCALC 79 09/22/2019 TRIG 192 (H) 09/22/2019 HDL 38 (L) 09/22/2019 Serum creatinine: 0.97 mg/dL 11/02/23 0615 Estimated creatinine clearance: 80.4 mL/min [facility] Work Phone: 11-02-2023 Consult note Associated Order (s): IP CONSULT TO CARDIOLOGY General Cardiology Inpatient Consult Heart & Vascular [facility] 11/02/2023 Luiz Frank MD [facility] Patient: Fernando Helton Date of : 1970 (53 y.o.) Referring Provider: Refer to consult order in electronic medical record PCP: Moises Patel MD Assessment/Plan: 1. Accelerated symptoms with chest discomfort and shortness of breath for the last 3 weeks. 2. Previous single-vessel CABG, SPARKS to LAD. 3. Uncontrolled diabetes, hemoglobin A1c 10.0 4. Continued tobacco abuse with smoking, did quit for short time after bypass but then went right back. 5. Hypertension 6. Hyperlipidemia 7. Obesity 8. GERD on Protonix 9. COPD 10. 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 Mild systolic dysfunction, last echocardiogram showing LV ejection fraction 41% 12. Mild hyponatremia, probably from elevated sugar, no obvious CHF. 13. Abnormal nuclear medicine myocardial perfusion stress test 05/07/2023, with fixed defect and deana-infarction ischemia anterior apical and septum with left ventricular ejection fraction 38%. PLAN: 1. Since patient had nuclear stress test in April 2023 and it was abnormal with mostly fixed defect and deana-infarction ischemia, cardiac catheterization and bypass graft angiography and coronary angiogram with possible PCI is recommended. 2. Especially because he continues to smoke and has uncontrolled diabetes with hemoglobin A1c 10.0, I would think that he is more likely to progress with atherosclerotic disease. 3. Patient is agreeable for cardiac catheterization and coronary angiography as he has not felt good for the last [address] 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 He does have mild to moderate left ventricular systolic dysfunction. Will keep him n.p.o. and start normal saline at 100 cc/h and he will sign the consent for the procedure. The procedure potential risk and alternatives were fully discussed, all signs were with the test from prior experience. 4. Does have some coughing but no real infection or pneumonia on the chest x-ray, just the chronic smoker's cough with some worsening. Subjective Reason for Consultation: Chest discomfort, shortness of breath for last 3 weeks. History of Present Illness: Fernando Helton is a 53 y.o. male has been progressively short of breath for the last 3 weeks and had severe chest tightness across the chest associated with shortness of breath and some coughing. He has COPD from continued smoking but does not have to use any nebulizer. He had seen the massage coordinator in the office recently and was supposed to have outpatient stress test in the near future. Imaging: I independently reviewed the EKG and agree with the interpretation(s) with the following comments. EKG shows old inferior and anterior infarct with sinus rhythm some nonspecific T wave changes. Echocardiogram on 05/07/2023 had shown LV ejection fraction 41% with wall motion abnormality of the anterior wall apex and septum consistent with previous myocardial infarction. EKG 12-lead Final Result by Interface, Lab Results In [place] (11/01/2023 5129) Echocardiogram complete w contrast Final Result by Emma Atkinson MD (05/30/2023 1336) Echocardiogram limited with contrast Final Result by (01/27/2019 0822) Stress test only, exercise Final Result by Emma Atkinson MD (03/13/2019 1441) Cardiac Catheterization Final Result by Anita Rowland MD (06/02/2020 1127) Review of Systems: The following system(s) were reviewed and negative. Pertinent positive and negative findings are noted in the HPI. [x] Const [x] Eyes [x] ENT [x] Resp, some wheezing uses inhalers, has nebulizer but never used it. 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 Bev Toletnino Metabolic syndrome Mood disorder ([facility]) Nasal fracture Obstructive sleep apnea noncompliant with CPAP Orthostatic dizziness with intermittent syncope Pericarditis 02/25/07; 09/23/17 Pneumomediastinum ([facility]) 01/12/2007 secondary to severe coughing spell & ruptured alveoli Rotator cuff tear, right 1998 s/p repair SLAP tear of shoulder 2011 left - s/p surgery to place [address] elevation myocardial infarction (STEMI) of anterolateral wall ([facility]) 05/09/2012 anterolateral STEMI involving left anterior descending coronary artery ([facility]) 09/25/2014 anterior Superficial thrombophlebitis of right upper extremity 12/26/2006 Past Surgical History: Procedure Laterality Date APPENDECTOMY 1999 BONE MARROW BIOPSY W/ ASPIRATION Left 11/27/2016 L posterior iliac crest; Dr. Bev Tolentino CABG OFF PUMP N/A 01/24/2019 Procedure: Coronary Artery Bypass graft x1 with Left Internal Mammary Artery graft, OFF PUMP; Surgeon: Neo Mcneil MD; Location: [facility]; Service: Cardiothoracic CARDIAC CATHETERIZATION 09/24/2014 Segment [...] Heart Cath; Surgeon: Carlo Mercedes MD; Location[facility]; Service: Cardiovascular HC LEFT HEART CATH N/A 06/02/2020 Procedure: Left Heart Cath; Surgeon: Anita Rowland MD; Location[facility]; Service: Cardiovascular IABP placement 05/09/[address] [...] Brother Social History Tobacco Use Smoking Status Every Day Current packs/day: 0.50 Average packs/day: 0.5 packs/day for 37.7 years (18.9 ttl pk-yrs) Types: Cigarettes Start date: 1986 Smokeless Tobacco Never Additional History Comments: None Allergies: Imdur [isosorbide mononitrate] Current Facility-Administered Medications Medication Dose Route Frequency Provider Last Rate Last Admin acetaminophen (TYLENOL) tablet 650 mg 650 mg Oral Q4H PRN Taye Patiño DO 650 mg at 11/01/23 2224 albuterol inhaler 2 puff 2 puff Inhalation Q4H PRN Taye Patiño DO aluminum-magnesium hydroxide-simethicone (MAALOX PLUS) 200-200-20 mg/5 mL suspension 30 mL 30 mL Oral Q4H PRN Taye Patiño, DO aspirin EC tablet 81 mg 81 mg Oral Daily Taye Patiño, DO 81 mg at 11/02/23 0857 atorvastatin (LIPITOR) tablet 40 mg 40 mg Oral Daily Taye Patiño, DO 40 mg at 11/02/23 0857 HYDROmorphone (DILAUDID) injection 0.5 mg 0.5 mg Intravenous Q4H PRN Delmi Donis MD 0.5 mg at 11/02/23 0656 insulin lispro (AdmeLOG,HumaLOG) injection 0-15 Units 0-15 Units Subcutaneous at bedtime Taye Patiño, insulin lispro (AdmeLOG,HumaLOG) injection 0-30 Units 0-30 Units Subcutaneous TID AC Taye Patiño, DO 6 Units at 11/02/23 0813 ipratropium-albuteroL (DUO-NEB) 0.5-2.5 mg/3 ml nebulizer solution 3 mL 3 mL Inhalation Q6H PRN Taye Patiño, DO losartan (COZAAR) tablet 25 mg 25 mg Oral Daily Taye Patiño, DO 25 mg at 11/02/23 0857 metoprolol succinate (TOPROL-XL) 24 hr tablet 25 mg 25 mg Oral Daily Taye Paitño, DO 25 mg at 11/02/23 0857 naloxone (NARCAN) injection 0.1 mg 0.1 mg Intravenous PRN Delmi Donis MD And naloxone (NARCAN) injection 0.4 mg 0.4 mg Intravenous PRN Delmi Donis MD ondansetron (ZOFRAN-ODT) disintegrating tablet 4 mg 4 mg Oral Q6H PRN Taye Patiño, Or ondansetron (ZOFRAN) injection 4 mg 4 mg Intravenous Q6H PRN Taye Patiño, pantoprazole (PROTONIX) EC tablet 40 mg 40 mg Oral Daily Taye Patiño, DO 40 mg at 11/02/23 0857 senna (SENOKOT) tablet 8.6 mg 1 tablet Oral BID PRN Taye Patiño, sodium chloride 0.9% (NS) 100 mL/hr Intravenous Continuous Luiz Frank MD 100 mL/hr at 11/02/23 1029 100 mL/hr at 11/02/23 1029 Current Outpatient Medications Medication Sig Dispense Refill aspirin 81 MG EC tablet Take 1 (one) tablet (81 mg total) by mouth daily . atorvastatin (Lipitor) 40 MG tablet Take 1 (one) tablet (40 mg total) by mouth daily . 90 tablet 3 metoprolol succinate (Toprol XL) 25 MG 24 hr tablet Take 1 (one) tablet (25 mg total) by mouth daily . 90 tablet 3 omeprazole (PRILOSEC) 40 MG capsule Take 1 (one) capsule (40 mg total) by mouth daily . 30 capsule 0 albuterol 90 mcg/actuation inhaler Inhale 2 (two) puffs every 4 (four) hours as needed for shortness of breath or cough . 18 g 0 insulin aspart U-100 (NovoLOG Flexpen U-100 Insulin) 100 unit/mL (3 mL) InPn Inject 5 (five) Units under the skin 3 (three) times a day before meals . (Patient not taking: Reported on 11/01/2023 .) 15 mL 0 insulin glargine (Lantus Solostar U-100 Insulin) 100 unit/mL (3 mL) InPn Inject 18 (eighteen) Units under the skin nightly . (Patient not taking: Reported on 11/01/2023 .) 15 mL 0 losartan (COZAAR) 25 MG tablet Take 1 (one) tablet (25 mg total) by mouth daily . 90 tablet 3 metFORMIN (GLUCOPHAGE-XR) 750 MG 24 hr tablet Take 1 (one) tablet (750 mg total) by mouth daily with breakfast . (Patient not taking: Reported on 11/01/2023 .) 30 tablet 0 pen needle, diabetic 31 gauge x 5/16 Ndle To use with insulin pen 100 each 0 Objective: Physical Examination: BP 137/84 Pulse 76 Temp 97.5 F (36.4 C) (Oral) Resp 16 Ht 5' 6 Wt 121.5 kg (267 lb 13.7 oz) SpO2 94% BMI 43.23 kg/m Constitutional: Alert, well appearing, not in distress.? Eyes: Conjunctivae/corneas clear. Lungs: Clear to auscultation, no wheezes, rales or rhonchi. Cardiovascular: Normal rate and regular rhythm, S1 and S2 normal, no murmurs noted, no carotid bruit, no pedal edema, no JVD. Abdomen: Soft, nontender with normal active bowel sounds; no masses or organomegaly. Skin: Normal coloration and turgor; no rashes or lesions. Musculoskeletal: Normal Range of Motion (ROM) Psych: Oriented to time, person, and place; appropriate mood. Lab Results Component Value Date CHOL 155 09/22/2019 LDLCALC 79 09/22/2019 TRIG 192 (H) 09/22/2019 HDL 38 (L) 09/22/2019 Serum creatinine: 0.97 mg/dL 11/02/23 0615 Estimated creatinine clearance: 80.4 mL/min documented in this encounter [facility] 11-02-2023 Note Formatting of this n ote might be different from the original. Problem: Actual or potential alteration in health Goal: Absence of healthcare acquired conditions 11/02/2023753 by Lisa Guzman RN Outcome: Partially Met 11/01/20231838 by Lisa Guzman RN Outcome: Partially Met Goal: Knowledge of Interdisciplinary Plan of Care 11/02/2023753 by Lisa Guzman RN Outcome: Partially Met 11/01/20231838 by Lisa Guzman RN Outcome: Partially Met Goal: Knowledge of Enviroment 11/02/2023753 by Lisa Guzman RN Outcome: Partially Met 11/01/20231838 by Lisa Guzman RN Outcome: Partially Met Problem: Pain Goal: Reduced pain sensation 11/02/2023753 by Lisa Guzman RN Outcome: Partially Met 11/01/20231838 by Lisa Guzman RN Outcome: Partially Met Goal: Control of acute pain to acceptable level 11/02/2023753 by Lisa Guzman RN Outcome: Partially Met 11/01/20231838 by Lisa Guzman RN Outcome: Partially Met Goal: Able to cope with pain 11/02/2023753 by Lisa Guzman RN Outcome: Partially Met 11/01/2023 183 by Lisa Guzman RN Outcome: Partially Met Goal: Able to achieve maximum level of physical functioning 11/02/2023753 by Lisa Guzman RN Outcome: Partially Met 11/01/2023 183 by Lisa Guzman RN Outcome: Partially Met Goal: Able to achieve maximum level of psychosocial functioning 11/02/2023753 by Lisa Guzman RN Outcome: Partially Met 11/01/20231838 by Lisa Guzman RN Outcome: Partially Met [facility] 11-02-2023 Note Formatting of this n ote might be different from the original. Problem: Actual or potential alteration in health Goal: Absence of healthcare acquired conditions Outcome: Partially Met Goal: Knowledge of Interdisciplinary Plan of Care Outcome: Partially Met Goal: Knowledge of Enviroment Outcome: Partially Met Problem: Pain Goal: Reduced pain sensation Outcome: Partially Met Goal: Control of acute pain to acceptable level Outcome: Partially Met Goal: Able to cope with pain Outcome: Partially Met Goal: Able to achieve maximum level of physical functioning Outcome: Partially Met Goal: Able to achieve maximum level of psychosocial functioning Outcome: Partially Met [facility] 11-01-2023 Note Formatting of this n ote might be different from the original. Problem: Actual or potential alteration in health Goal: Absence of healthcare acquired conditions Outcome: Partially Met Goal: Knowledge of Interdisciplinary Plan of Care Outcome: Partially Met Goal: Knowledge of Enviroment Outcome: Partially Met Problem: Pain Goal: Reduced pain sensation Outcome: Partially Met Goal: Control of acute pain to acceptable level Outcome: Partially Met Goal: Able to cope with pain Outcome: Partially Met Goal: Able to achieve maximum level of physical functioning Outcome: Partially Met Goal: Able to achieve maximum level of psychosocial functioning Outcome: Partially Met [facility] 11-01-2023 History and physical note [facility] HISTORY AND PHYSICAL -- [facility] Patient Name: Fernando Helton : 1970 MR #: [id number] Admit Date: 11/01/2023 Physicians: Moises Patel MD (Family); Ayaka Thomas MD (Referring) Fernando Helton is a 53 y.o. male patient of Moises Patel MD with history of anxiety, CAD s/p PCI and CABG to the left main, CHF, V-fib arrest, chronic sinusitis, cluster headache, COPD, previous coronary stent thrombosis, type 2 diabetes mellitus, GERD, hepatic hemangioma, hypertension, dyslipidemia, metabolic syndrome, ISAC, orthostatic dizziness, HFrEF, previous pericarditis presented to [facility] on 11/01/2023 with chest pain. Acute chest pain HFrEF CAD/PCI and CABG Hypertension Dyslipidemia History of V-fib arrest Troponin 16 EKG showed NSR with HR of [address], [address] on lead II, D-dimer, BNP WNL Admit to [facility] with telemetry Trend down troponin Last echo reviewed on 05/2023 which showed LVEF of 41%, grade 1 diastolic dysfunction Controlle pain Repeat echo Replete electrolyte as needed keep k>4, Phos > 3, Mag >2 If troponin is trending up, will start heparin drip Continue aspirin and statin consult cardiology, referred from Dr. Mondragon for possible stress test versus [facility] Leukocytosis Productive cough WBC on admission 14 CXR reviewed did not show any acute intrapulmonary process Follow-up UA Check respiratory panel No need to start antibiotic at this moment COPD No acute exacerbation DuoNeb as needed Cluster headache Tremors and jerking As needed Fioricet and continue to monitor Type 2 diabetes mellitus Last A1c 14.8 last year Repeat A1c Patient is currently on no insulin Sliding scale to keep BG between 140 and 180 Tobacco use disorder Still smoking but promised to stop Counseled about smoking cessation Nicotine patch as needed Insomnia Melatonin GERD PPI Restless leg syndrome Ropinirole Morbid obesity BMI 43.09 ISAC CPAP Residence prior to admission: house or apartment Was patient transferred from outlying hospital or ED yes -- care site [facility] Quality Measures DVT Prophylaxis: heparin subcutaneous Rodriguez Catheter: absent Medication Reconciliation: Verified Admitted with these risk variables:None. Please see assessment and plan for further details. Estimated Date of Discharge less than 2 midnights Code Status Full Code; code status verified on 11/01/2023 with patient (capacity intact) Chief Complaint chest pain History of Present Illness Fernando Helton is a 53 y.o. male patient of Moises Patel MD with history of anxiety, CAD s/p PCI and CABG to the left main, CHF, V-fib arrest, chronic sinusitis, cluster headache, COPD, previous coronary stent thrombosis, type 2 diabetes mellitus, GERD, hepatic hemangioma, hypertension, dyslipidemia, metabolic syndrome, ISAC, orthostatic dizziness, HFrEF, previous pericarditis presented to [facility] on 11/01/2023 with chest pain. Patient also was complaining of nonproductive cough for the last 4 days. Patient described his chest pain as midsternal nonradiating constant worse with breathing and exertion associated with SOB. Patient was scheduled for stress in the nearest future. Also was complaining of headache and some wheezing. Denied fever, abdominal pain, diarrhea or constipation. In the ER in [place], EKG showed NSR with ST scooping in lead II, no ST elevation or depression. Patient also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 for Medicaid. I have also recommended extended ambulatory monitoring to exclude atrial dysrhythmias and update his 2D echocardiogram at which time additional recommendations will be forthcoming. Chronic disease management and risk factor modification were reviewed. Assessment & Plan: No problem-specific Assessment & Plan notes found for this encounter. EKG Interpretation: normal sinus rhythm, nonspecific ST and T waves changes, Extensive anterolateral infarct Follow Up Ordered: Return in about 6 months (around 10/01/2023). Patient's Medications New Prescriptions ATORVASTATIN (LIPITOR) 40 MG TABLET Take 1 (one) tablet (40 mg total) by mouth daily . LOSARTAN (COZAAR) 25 MG TABLET Take 1 (one) tablet (25 mg total) by mouth daily . METOPROLOL SUCCINATE (TOPROL XL) 25 MG 24 HR TABLET Take 1 (one) tablet (25 mg total) by mouth daily . Previous Medications ALBUTEROL 90 MCG/ACTUATION INHALER Inhale 2 (two) puffs every 4 (four) hours as needed for shortness of breath or cough . ASPIRIN 81 MG EC TABLET Take 1 (one) tablet (81 mg total) by mouth daily . ATORVASTATIN (LIPITOR) 40 MG TABLET Take 1 (one) tablet (40 mg total) by mouth nightly . BLOOD SUGAR DIAGNOSTIC (GLUCOSE BLOOD) STRIPS Use as directed before breakfast and supper Dx E11.65 . BLOOD-GLUCOSE METER KIT Use as instructed Dx E11.65 . CLOPIDOGREL (PLAVIX) 75 MG TABLET Take 1 (one) tablet (75 mg total) by mouth daily . FLUTICASONE PROPION-SALMETEROL (ADVAIR DISKUS) 250-50 MCG/DOSE DISKUS INHALER Inhale 1 (one) puff 2 (two) times a day . INSULIN ASPART U-100 (NOVOLOG FLEXPEN U-100 INSULIN) 100 UNIT/ML (3 ML) INPN Inject 5 (five) Units under the skin 3 (three) times a day before meals . INSULIN GLARGINE (LANTUS SOLOSTAR U-100 INSULIN) 100 UNIT/ML (3 ML) INPN Inject 18 (eighteen) Units under the skin nightly . LANCETS 33 GAUGE MISC Use to measure blood glucose four times a day (before meals and at bedtime) LOSARTAN (COZAAR) 25 MG TABLET Take 1 (one) tablet (25 mg total) by mouth daily . METFORMIN (GLUCOPHAGE-XR) 500 MG 24 HR TABLET Take 2 (two) tablets (1,000 mg total) by mouth daily . METFORMIN (GLUCOPHAGE-XR) 750 MG 24 HR TABLET Take 1 (one) tablet (750 mg total) by mouth daily with breakfast . METOPROLOL TARTRATE (LOPRESSOR) 50 MG TABLET Take 1.5 tablets(75mg) by mouth twice daily. . OMEPRAZOLE (PRILOSEC) 40 MG CAPSULE Take 1 (one) capsule (40 mg total) by mouth daily . PEN NEEDLE, DIABETIC 31 GAUGE X 5/16 NDLE To use with insulin pen PREDNISONE (DELTASONE) 20 MG TABLET Take 2 (two) tablets (40 mg total) by mouth daily Start: 07/23/22. ROPINIROLE (REQUIP) 2 MG TABLET Take 1 (one) tablet (2 mg total) by mouth nightly . TRAZODONE (DESYREL) 100 MG TABLET Take 1 (one) tablet (100 mg total) by mouth every evening At 6 PM . TRELEGY ELLIPTA 200-62.5-25 MCG DSDV 1 (one) Inhalation. by Oral Inhalation route daily . Modified Medications No medications on file Discontinued Medications No medications on file Histories: The past history, social and family history, and allergies were reviewed and updated as needed. ROS Objective: Physical Exam Constitutional: Appearance: Normal appearance. He is well-developed. HENT: Head: Normocephalic and atraumatic. Right Ear: External ear normal. Left Ear: External ear normal. Nose: Nose normal. Eyes: Pupils: Pupils are equal, round, and reactive to light. Neck: Thyroid: No thyroid mass. Vascular: No carotid bruit, hepatojugular reflux or JVD. Cardiovascular: Rate and Rhythm: Normal rate and regular rhythm. Pulses: Intact distal pulses. Radial pulses are 1+ on the right side and 2+ on the left side. Heart sounds: Normal heart sounds. Comments: Physiologic S1 and S2. Quiet precordium. No obvious murmur. Apical impulse not palpable. Jugular venous pressure difficult to estimate Pulmonary: Effort: Pulmonary effort is normal. Breath sounds: Normal breath sounds. Abdominal: General: Bowel sounds are normal. Palpations: Abdomen is soft. Tenderness: There is no abdominal tenderness. Musculoskeletal: General: Normal range of motion. Cervical back: Normal range of motion and neck supple. No edema. No muscular tenderness. Comments: No edema Skin: General: Skin is warm and dry. Nails: There is no clubbing. Neurological: Mental Status: He is alert and oriented to person, place, and time. Cranial Nerves: No cranial nerve deficit. Deep Tendon Reflexes: Reflexes are normal and symmetric. Psychiatric: Speech: Speech normal. Behavior: Behavior normal. I personally reviewed and verified the review of systems obtained by the medical communication specialist. Vitals: Vitals: 04/02/23 1520 04/02/23 1530 BP: (!) 163/105 (!) 171/100 BP Location: Right arm Left arm Patient Position: Sitting Sitting BP Cuff Size: X-large Adult X-large Adult Pulse: 92 93 SpO2: 94% Weight: 114.8 kg (253 lb) Height: 5' 6 1. Syncope and collapse 2. Essential hypertension 3. Mixed hyperlipidemia 4. Coronary artery disease involving [place] coronary artery of [place] heart without angina pectoris 5. Cardiomyopathy, unspecified type (HCC) 6. TIA (transient ischemic attack) 7. Centrilobular emphysema (HCC) 8. ISAC (obstructive sleep apnea) 9. Irritable bowel syndrome, unspecified type Anita Rowland MD documented in this encounter [facility] 03-30-2023 Instructions Renae Spence RN - 03/30/2023 10:02 AM EST 30 Day Cardiac Event Monitor: [facility] [id number] applied in clinic. A cardiac event monitor has been ordered. It is a device that is worn that will record your heart beat and rhythm. An instruction manual will accompany the monitor to assist you in putting on the monitor, charging the battery and answering any questions you may have. If after reading the instructions you have any questions please do not hesitate to call the company at the number they have provided in the instruction manual. You will have two batteries and a battery charger tester. While you are wearing one of the batteries please have the other battery charging in the battery charger tester device. Patches that you will wear will be provided. Please rotate the site that you put the patches on to prevent skin breakdown. *If you are having issues with skin sensitivity please call the number in the [employer] manual to request hypoallergenic patches. Please call [employer] [phone] (option 1, 1) to request patches. When completed please mail back to the company in the box originally provided and send back via UPS. Instructions will accompany the device on how to do this. It can take three weeks or more to get a report back after you have finished wearing the monitor. You will be notified when results have been interpreted by an eletrophysiology physician. If you need to contact [employer] please call [phone]. If you have any questions for us please call [phone]. How to contact your team Provider Anita Rowland MD Nurse Renae Spence RN [phone] In case of an emergency please call 911 To schedule an appointment please call [phone]. Refills When in need of a refill, please call your care team. Please include medication name, pharmacy name, and specify 30 or 90 day supply. Please check with your pharmacy within 24 hours of request for your refill. You must follow up as directed to continue current refills. Thank you documented in this encounter [facility] 03-06-2022 History of Present illness Narrative Patient calls the office today [...] any more concerns. documented in this encounter [facility] 02-14-2022 Telephone encounter Note Refills needed to local pharmacy. Scheduling contacting patient for follow up. Last OV with Dr. Rowland on 05/28/20. [facility] 02-14-2022 Miscellaneous Notes Refills needed to local pharmacy. Scheduling contacting patient for follow up. Last OV with Dr. Rowland on 05/28/20. documented in this encounter [facility] 12-27-2021 History of Present illness Narrative Follow Up Visit Fernando Helton [id number] 1970 12/27/2021 Chief Complaint Patient presents with [...] is to be set up with [facility] Pt concerned with difficulty sleeping. X2.5 months [...] he is to be set up with [facility] He presents for his follow-up diabetic visit. He has type 2 diabetes mellitus. His disease course has been improving. Pertinent negatives for diabetes include no chest pain and no fatigue. History: Past Medical History: Diagnosis Date Arm pain, left Arthritis Chicken pox COPD (chronic obstructive pulmonary disease) Essential hypertension, benign Head pain Hyperlipidemia [place] (myocardial infarction) 01/2012, 04/2012 x2 Neck pain ISAC on CPAP 07/06/2020 Past Surgical History: Procedure Laterality Date OTHER SURGICAL 2019 open heart surgery LUNG SURGERY 2019 drainage of fluid on lung ARTHROSCOPY SHOULDER W/ BICEPS TENODESIS Left 05/08/2013 Laterality: Left; Surgeon: Louise Wadlron MD; Location: [facility] MA[facility] SHOULDER SURGERY Left [...] III SHORT PEN 31G X 8 MM [facility], , Disp: , Rfl: [id number] (Trelegy Ellipta) 200-62.5-25 MCG/INH Aerosol Powder, breath [...] 90 capsule, Rfl: 3 Continuous Blood Gluc Director Of Audiology (FreeStyle Glenna 2 [facility]) Device, 1 Application by Unknown route [...] Class 1.04 (A) [place], IGE <0.10 Allergen, [place], Indian Plantain IgE <0.10 [place], [place] 2.77 (A) [place], WHITE <0.10 SHORT RAGWE[place], [...] ALPHA 1 ANTITRYPSIN Result Value Ref Range [id number] 144 No images are attached to the [...] controlled diabetes mellitus - Continuous Blood Gluc Director Of Audiology (FreeStyle Glenna 2 [employer]) Device; 1 Application by Unknown route daily. - Continuous Blood Gluc Sensor (FreeStyle Glenna 2 Sensor Systm) Misc; 1 Application by Unknown route daily. Insomnia, unspecified type - traZODone 100 MG tablet; Take 1 tablet by mouth every evening at 6 PM. Moises Patel MD documented in this encounter [facility] 10-24-2021 Telephone encounter Note Pt was last seen by Dr. Rowland in 06/02, with an upcoming ov in 11/03 Refill appropriate until ov [facility] 10-24-2021 Miscellaneous Notes Pt was last seen by Dr. Rowland in 06/02, with an upcoming ov in 11/03 Refill appropriate until ov documented in this encounter [facility] 10-19-2021 Telephone encounter Note Pt was last seen by Dr. Rowland in 05/2020, w/ upcoming ov in 10/2021. Refill appropriate until next ov. [facility] 10-19-2021 Miscellaneous Notes Pt was last seen by Dr. Rowland in 05/2020, w/ upcoming ov in 10/2021. Refill appropriate until next ov. documented in this encounter [facility] 10-11-2021 Telephone encounter Note Patient was last seen 05/2020 and has a follow up scheduled 10/31/2021. Refill appropriate until next ov [facility] 10-11-2021 Miscellaneous Notes Patient was last seen 05/2020 and has a follow up scheduled 10/31/2021. Refill appropriate until next ov documented in this encounter [facility] 07-06-2021 Telephone encounter Note Refill needed to local pharmacy. Last OV 06/10/20. Follow up pending. [facility] 07-06-2021 Miscellaneous Notes Refill needed to local pharmacy. Last OV 06/10/20. Follow up pending. documented in this encounter [facility] 05-23-2021 Telephone encounter Note Scheduling to contact for ov Last seen 05/28/20 w/ Dr. Rowland Recall 6 mo [facility] 05-23-2021 Miscellaneous Notes Scheduling to contact for ov Last seen 05/28/20 w/ Dr. Rowland Recall 6 mo documented in this encounter [facility] 01-17-2021 Miscellaneous Notes Refill needed to local pharmacy. Last OV with Dr. Rowland 05/28/20. documented in this encounter [facility] 09-15-2020 History of Present illness Narrative Follow Up Visit Fernando Helton [id number] 1970 09/15/2020 Chief Complaint Patient presents with [...] disease) Essential hypertension, benign Head pain Hyperlipidemia [place] (myocardial infarction) 01/2012, 04/2012 x2 Neck pain ISAC on CPAP 07/06/2020 Past Surgical History: Procedure Laterality Date OTHER SURGICAL 2019 open heart surgery LUNG SURGERY 2019 drainage of fluid on lung ARTHROSCOPY SHOULDER W/ BICEPS TENODESIS Left 05/08/2013 Laterality: Left; Surgeon: Louise Waldron MD; Location: [facility] MAIN OR SHOULDER SURGERY Left 11/22/11 [...] Social Gatherings with Friends and Family: Attends Buddhism Services: Active Member of Clubs or Organizations: [...] of breath, Disp: 1 Each, Rfl: 0 [id number]-Jcdzlkzyr-Bkviiu (Trelegy Ellipta) 200-62.5-25 MCG/INH Aerosol Powder, breath [...] Mites/D.P., Class 1.04 (A) [place], IGE <0.10 LITHU[place]IAN PLANTAIN, IGE <0.10 [place], [place] 2.77 (A) [...] Moises Patel MD documented in this encounter [facility] 08-19-2020 Miscellaneous Notes Refill needed to local pharmacy. Last OV with Dr. Rowland May 2020. documented in this encounter [facility] 08-06-2020 Miscellaneous Notes Last OV 05/28/20. Refills appropriate. documented in this encounter [facility] 06-10-2020 Miscellaneous Notes Order needed to local pharmacy. One week sample given for Xarelto 20mg PO daily. Coupon also given for refill pickup. Education handouts given. documented in this encounter [facility] 06-10-2020 History of Present illness Narrative Dr. Rowland notified of preliminary results of arterial duplex. Patient discussing results with Dr. Rowland and new orders received for Xarelto 20mg daily. Instructional handout given. Spoke to with recommendations as well. documented in this encounter [facility] 06-10-2020 History of Present illness Narrative Patient had cath on Sunday06/04/20 [...] radial pulse palpated. documented in this encounter [facility] 06-02-2020 Hospital Discharge instructions Princess Cisneros RN - 06/02/2020 [facility] Post Cardiac Catheterization Discharge Instructions Site Care Leave Bandage in place the night of your catheterization. Watch for any bleeding or oozing from the site. If this occurs, lie flat and place direct pressure on the bandage for 20 minutes. If bleeding reoccurs call [facility]. For groins, remove your bandage the following [...] shower 24 hours after the procedure. Call [facility] at [phone] if you notice any of the following: [...] need of prescription assistance, please notify the [facility] nurse or call the office. If you were prescribed Plavix (clopidogrel), Effient (prasugrel), or Brilinta (ticagrelar) after your procedure, DO NOT STOP taking this medication unless told to do so by your [facility] massage coordinator. Follow up appointments, tests or procedures will be on your discharge paperwork under What's next. Please call [facility] at [phone] to reschedule any appointments if needed or if you have any questions or concerns. Thank you! documented in this encounter [facility] 06-01-2020 History of Present illness Narrative Called and notified patient of time change for cath tomorrow. Patient to arrive to the hospital at 0800 for cath at 1000. Patient verbalizes understanding. documented in this encounter [facility] 05-28-2020 Miscellaneous Notes Associated Problem(s): COPD (chronic obstructive pulmonary disease) (HCC) Patient reports he has discontinued tobacco abuse. Associated Problem(s): ISAC (obstructive sleep apnea) Noncompliant with CPAP therapy. Associated Problem(s): Coronary artery disease involving [place] coronary artery of [place] heart without angina pectoris Patient has a [...] intensified as tolerated. documented in this encounter [facility] 05-28-2020 History of Present illness Narrative CARDIOLOGY PROGRESS NOTE [facility] [address]) [facility] [address] [facility] [address] Physicians: Moises Patel MD (Family); No [...] not describing palpitations. Patient was hospitalized at [facility] in an observational stay unit for [...] plaque stabilization therapy. Coronary artery disease involving [place] coronary artery of [place] heart without angina pectoris Patient has a [...] therapy. COPD (chronic obstructive pulmonary disease) ([facility]) Patient reports he has discontinued tobacco abuse. [...] review of systems obtained by the medical communication specialist. Vitals: Vitals: 05/28/20 1605 BP: (!) 149/88 Pulse: 78 SpO2: 96% Weight: 121.6 kg (268 lb) Height: 5' 5.98 1. Essential hypertension 2. Mixed hyperlipidemia 3. Coronary artery disease involving [place] coronary artery of [place] heart without angina pectoris 4. PAD (peripheral artery disease) (HCC) 5. Centrilobular emphysema (HCC) 6. ISAC (obstructive sleep apnea) 7. Nicotine abuse 8. Pre-procedure lab exam 9. Abnormal stress test Anita Rowland MD documented in this encounter [facility] 05-28-2020 Instructions Rubi Pratt RN - 05/28/2020 4:33 PM EDT Tiffany TORREZ, box brander for Anita Rowland MD [address] [place] [address], 3rd Floor [place], [place] [address] General office (Scheduling) Covid Testing Prior to your procedure or test you will need to have a test to rule out Covid 19. This is an oral swab that is done at a drive-up testing site in [place]. You are to have this test completed no earlier than 96 hours but no less than 72 hours before your cardiac procedure or test. The testing site is at [address] [place] [address] in [place]. It is off of [address] between [address] and [facility]. The hours of testing are Sunday to Sunday 8-3 as well as Sunday and 10-13. The order will be entered in our [...] Tuesday June 02, 2020 Please arrive at [facility] and check in at the Outpatient [...] questions or concerns please contact us at [phone]. documented in this encounter [facility] 06-11-2017 Telephone encounter Note Pts left a VM requesting refills on three of the pts medications. [facility] 06-11-2017 Miscellaneous Notes Pts left a VM requesting refills on three of the pts medications. documented in this encounter [facility] Evaluation note Diagnosis Essential hypertension- Primary Unspecified essential hypertension Mixed hyperlipidemia Coronary artery disease involving [place] coronary artery of [place] heart without angina pectoris PAD (peripheral artery disease) (HCC) Unspecified peripheral vascular disease Centrilobular emphysema (HCC) ISAC (obstructive sleep apnea) Obstructive sleep apnea (adult) (pediatric) Nicotine abuse Pre-procedure lab exam Pre-procedural laboratory examination Abnormal stress test Other nonspecific abnormal cardiovascular system function study [facility] NSVT (nonsustained ventricular tachycardia) ([facility]) Abnormal EKG Nonspecific abnormal electrocardiogram (ECG) (EKG) [facility] Diagnosis Other specified complications of surgical and medical care, not elsewhere classified, initial encounter- Primary [facility] Diagnosis Other specified complications of surgical and medical care, not elsewhere classified, initial encounter- Primary [facility] Diagnosis Other specified complications of surgical and medical care, not elsewhere classified, initial encounter [facility] Diagnosis Other specified complications of surgical and medical care, not elsewhere classified, initial encounter [facility] Diagnosis Chronic obstructive pulmonary disease with acute exacerbation- Primary Obstructive chronic bronchitis with exacerbation COPD with acute exacerbation Obstructive chronic bronchitis with exacerbation [facility] Inadequately controlled diabetes mellitus- Primary Type II or unspecified type diabetes mellitus without mention of complication, not stated as uncontrolled Insomnia, unspecified type [facility] noteNo assessment information availableBarber[facility] Work Phone: Evaluation note* Diagnosis Coronary artery disease involving [place] coronary artery of [place] heart without angina pectoris- Primary [facility] Diagnosis Syncope and collapse- Primary Essential hypertension Unspecified essential hypertension Mixed hyperlipidemia Coronary artery disease involving [place] coronary artery of [place] heart without angina pectoris Cardiomyopathy, unspecified type (HCC) TIA (transient ischemic attack) Unspecified transient cerebral ischemia Centrilobular emphysema (HCC) ISAC (obstructive sleep apnea) Obstructive sleep apnea (adult) (pediatric) Irritable bowel syndrome, unspecified type [facility] Diagnosis Syncope and collapse- Primary [facility]* Diagnosis Syncope and collapse- Primary SOB (shortness of breath) Shortness of breath [facility]* Diagnosis Chest pain- Primary Unspecified chest pain [facility] Additional Instructions If your symptoms return/worsen or you develop any further concerns or symptoms please see your doctor or return to the emergency department immediately. Please be sure to follow-up with your primary care provider regarding today's visit as well as the lab and imaging results.[facility] Work Phone: Assessments Diagnosis Leukocytosis, unspecified ty pe - Primary Diagnosis Essential hypertension - Vivi emma Unspecified essential hypertension Chronic systolic heart failu re (HCC) Chronic systolic heart failure Coronary artery disease invo lving [place] coronary artery of [place] heart without angina pectoris Hyperlipidemia, unspecified hyperlipidemia type Diagnosis Leukocytosis, unspecified ty pe - Primary Diagnosis Leukocytosis, unspecified ty pe - Primary Diagnosis Chronic systolic heart failu re (HCC) - Primary Chronic systolic heart failure Essential hypertension Unspecified essential hypertension Coronary artery disease invo lving [place] coronary artery of [place] heart without angina pectoris Diagnosis Chronic systolic heart failu re (HCC) - Primary Chronic systolic heart failure Essential hypertension Unspecified essential hypertension Coronary artery disease invo lving [place] coronary artery of [place] heart without angina pectoris Diagnosis Leukocytosis, unspecified ty pe - Primary Diagnosis Acute exacerbation of chronic obstructive pulmonary disease (COPD) ([facility])- Primary Obstructive chronic bronchitis with exacerbation Diagnosis Chronic systolic congestive heart failure ([facility]) Diagnosis S/P CABG (coronary artery bypass graft) [...] unspecified vessel or lesion type, unspecified whether [place] creek or transplanted heart Diagnosis TIA (transient ischemic attack)- Primary Unspecified transient cerebral ischemia Essential hypertension Unspecified essential hypertension Mixed hyperlipidemia Coronary artery disease involving [place] coronary artery of [place] heart without angina pectoris Centrilobular emphysema ([facility]) ISAC on CPAP Nicotine abuse Diagnosis TIA (transient ischemic attack) Unspecified transient cerebral ischemia Diagnosis Chronic systolic heart failure (HCC) Chronic systolic heart failure Hypertension, unspecified type Coronary artery disease involving [place] coronary artery of [place] heart without angina pectoris Diagnosis Chronic systolic congestive heart failure ([facility]) Diagnosis Chest pain, atypical Type 2 diabetes mellitus without complication, without long-term current use of insulin ([facility]) Coronary artery disease, angina presence unspecified, unspecified vessel or lesion type, unspecified whether [place] or transplanted heart Type 2 diabetes mellitus with other circulatory complications ([facility]) S/P CABG x 1 Postsurgical aortocoronary bypass status Chest pain Unspecified chest pain ACS (acute coronary syndrome) ([facility]) Intermediate coronary syndrome PAD (peripheral artery disease) ([facility]) Unspecified peripheral vascular disease Diagnosis Pleuritic chest pain Painful respiration Diagnosis Near syncope- Primary COPD (chronic obstructive pulmonary disease) ([facility]) Chronic airway obstruction, not elsewhere classified Coronary artery disease involving [place] coronary artery of [place] heart without angina pectoris ISAC (obstructive sleep apnea) Obstructive sleep apnea (adult) (pediatric) Essential hypertension Unspecified essential hypertension TIA (transient ischemic attack) Unspecified transient cerebral ischemia Mixed hyperlipidemia Nicotine abuse Diagnosis COPD exacerbation ([facility]) Obstructive chronic bronchitis with exacerbation Diagnosis Coronary artery disease involving [place] coronary artery of [place] heart with angina pectoris ([facility])- Primary Acute on chronic diastolic heart failure ([facility]) Acute on chronic diastolic heart failure Diagnosis Acute CVA (cerebrovascular accident) ([facility]) Essential hypertension Unspecified essential hypertension Mixed hyperlipidemia Coronary artery disease involving [place] coronary artery of [place] heart without angina pectoris GERD (gastroesophageal reflux disease) Esophageal reflux PAD (peripheral artery disease) ([facility]) Unspecified peripheral vascular disease TIA (transient ischemic [...] and how you are feeling on Sunday. [phone] Please work your portion sizes and snacks [...] team should you have any questions or concerns regarding ongoing recovery from heart surgery. Resume: Lasix [...] Carlo Mercedes MD Nurse: Rubi Pratt RN [facility] In case of an emergency please call 911. REFILLS: When in need for refills please call your care team or the office at [phone]. Please include medication name, pharmacy name, and [...] They will send two batteries and a battery charger tester. While you are wearing one of the batteries please have the other battery charging in the battery charger tester device. Please do not get the device [...] when results have been interpreted by a massage coordinator. If you have any questions please call [phone]. documented in this encounter* Patient Instructions* Ligia Koroma RN - 12/26/2018 4:05 PM EST Your nurse today was Ligia HURT who can be contacted at [phone]. You may also contact Kalina Bernal other nurse at [phone]. REFILLS: When in need of refills please call Ligia at the above number or the office at [phone]. Please include medication name and dose, pharmacy name and location, and specify 30-day or 90-day supply. Please check with your pharmacy within 24-48 hours of request for your refill. You must follow up as directed to continue current refills. Thank you! documented in this encounter History of Present Illness * Patricia Louis, EL TEACHER - 01/07/2018 10:37 AM EST Formatting of this note may be different from the original. [facility] NAME: Fernando Helton DATE OF : 1970 MEDICAL RECORD#: [id number] DRYWALL HANGER HELPER: TODAY'S DATE: 01/07/2018 Subjective Fernando Helton is [...] edema. 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 Mr. Helton has not seen a massage coordinator in some time. He will be scheduled [...] INCLUDES: Strong family hx w/ Father having KY/CABG at age 45. Mother w/ [place] at 63 and CVA hx. The patient had an STEMI (anterior/lateral) in April 2012 required IABP and bare metal stenting. He was non-compliant w/ medications and had a anterior KY in 2014 w/ cardiac arrest and additional [...] leg COPD (chronic obstructive pulmonary disease) ([facility]) Fatigue GERD (gastroesophageal reflux disease) Headache HLD (hyperlipidemia) HTN (hypertension) Metabolic syndrome Mood disorder ([facility]) Obstructive sleep apnea Pneumomediastinum ([facility]) 01/2007 Rotator cuff tear, right 1997 s/p repair SLAP tear of shoulder 2011 left - s/p surgery to place [address] elevation myocardial infarction (STEMI) of anterolateral wall ([facility]) 05/09/12 Past Surgical History: Procedure Laterality Date [...] with patient. There is collaboration between the EL TEACHER and the consulting/collaborating physician regarding this patient's [...] medical problems including CAD statuspost [facility] with 1 stent placed in the left [...] leg COPD (chronic obstructive pulmonary disease) ([facility]) Fatigue GERD (gastroesophageal reflux disease) Headache HLD (hyperlipidemia) HTN (hypertension) Metabolic syndrome Mood disorder ([facility]) Obstructive sleep apnea Pneumomediastinum ([facility]) 01/2007 Rotator cuff tear, right 1997 s/p repair SLAP tear of shoulder 2011 left - s/p surgery to place [address] elevation myocardial infarction (STEMI) of anterolateral wall ([facility]) 05/09/12 Past Surgical History: Procedure Laterality Date [...] we will see Mr. Helton again on Sunday,02/02/2019. Continue to use incentive spirometer 10 times [...] puff, Inhl, BID Given, 2 puff at 02/03 193 clopidogrel (PLAVIX) tablet 75 mg 75 mg, [...] Q8H JUVENCIO Given, 300 mg at 02/04 0539 ipratropium-albuterol (DUO-NEB) 0.5-2.5 mg/3 ml nebulizer solution [...] diabetes mellitus type 2, followed by Dr. Nancy Molina, currently managed with diet and blood glucose check Acute leukocytosis, secondary to hypoventilation and reactive to left pleural effusion, improving Positive fluid balance with weight gain, managed with diuretic therapy: Admission weight on 02/02/2019 117.7 kg, today's weight: 109.1 kg PLAN: Discharge to home CPT: 74479 * Louise Caruso RN - 02/03/2019 1:59 PM EST COMPLEX DISCHARGE Date: 02/03/2019 Time: 1:59 PM Patient Name: Fernando Helton Date of : 1970 Sex: Male outcomes manager following for readmission rate score. He is a s/p CABG from 01/24 and return with sob and sharp stabbing pain. A consult has been placed with Dr eZlaya for a left thoracentesis todayif possible . Discharge Planning Living Arrangements: Spouse/significant other Support Systems: Spouse/significant other Assistance Needed: none Type of Residence: Private residence Prior to Admission Home Care Services: No * Kristin Walker PA-C - 02/03/2019 6:50 AM EST 02/03/19 Feranndo Hernandez Kyle SUBJECTIVE: Patient sitting up to chair, orthopneic [...] last 72 hours. 02/02/2019 CTA pulmonary arteries: [id number]-[id number] effusion with mild atelectasis in the left [...] Oral, Daily Given, 20 mEq at 02/02 1629 rOPINIRole (REQUIP) tablet 2 mg 2 mg, [...] diabetes mellitus type 2, followed by Dr. Nancy Molina, currently managed with diet and blood glucose check Acute leukocytosis, secondary to hypoventilation and reactive to left pleural effusion PLAN: N.p.o. since midnight Consultation placed to Dr. Gilmer Zelaya for left thoracentesis today if possible Plan for discharge after thoracentesis Hold Plavix CPT: 83032 * Arvin Gilliam II, MD - 02/02/2019 [...] scheduled routine 5-week follow-up appointment with Dr. Blkae Mcneil and is accompanied by his spouse [...] medical therapy. Contact the office of Dr. Mcneli's team to report update on chest wall/back [...] [place], PT - 03/11/2019 8:20 AM EST [facility] [address] [place] [id number] Office 03/11/2019 Patient: Fernando Helton : 1970 Primary Diagnosis: CABG The Cardiac Rehab Staff had the recent pleasure of meeting Fernando Helton for a consultation regardingoutpatient cardiac rehabilitation. As you recall, Mr. Helton has a history of KY 2012, [place]/ cardiac arrest 2014, and CHF. He recently presented with anterior wall [place]. Cardiac cath 01/20/19: EF 45%; occ mid LAD stent. He underwent CABG x 1 on 01/24/19. Risks and benefits associated with a cardiac rehabprogram were discussed along with his risk factors and a preliminary treatment plan and goals for the program. The Cardiac Rehab Staff will maintain contact with you throughout the 12-week program. Thank you for allowing Mr. Helton to participate in [facility] comprehensive risk reduction [...] prescription reviewed and approved by our biomedical engineering technician. Psychosocial: Patient scored a 3 on the [...] visit after single-vessel CABG (SPARKS to LAD) [place]-patient is a pleasant 48-year-old man with known [...] 09/2014 Cardiac arrest with ventricular fibrillation ([facility]) 09/25/2014 CHF (congestive heart failure), NYHA class I, chronic, diastolic ([facility]) Chronic sinusitis Claudication of right lower extremity ([facility]) Cluster headache COPD (chronic obstructive pulmonary disease) ([facility]) 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 Bev Tolentino Metabolic syndrome Mood disorder ([facility]) Nasal fracture Obstructive sleep apnea noncompliant with CPAP Orthostatic dizziness with intermittent syncope Pericarditis 02/25/07; 09/23/17 Pneumomediastinum ([facility]) 01/12/2007 secondary to severe coughing spell & ruptured alveoli Rotator cuff tear, right 1998 s/p repair SLAP tear of shoulder 2011 left - s/p surgery to place [address] elevation myocardial infarction (STEMI) of anterolateral wall ([facility]) 05/09/2012 anterolateral STEMI involving left anterior descending coronary artery ([facility]) 09/25/2014 anterior Superficial thrombophlebitis of right upper extremity 12/26/2006 Past Surgical History: Procedure Laterality Date APPENDECTOMY 1998 BONE MARROW BIOPSY W/ ASPIRATION Left 11/27/2016 L posterior iliac crest; Dr. Bev Tolentino CABG OFF PUMP N/A 01/24/2019 Procedure: Coronary Artery Bypass graft x1 with Left Internal Mammary Artery graft, OFF PUMP; Surgeon: Neo Mcneil MD; Location: [facility]; Service: Cardiothoracic CARDIAC CATHETERIZATION 09/24/2014 Segment [...] Heart Cath; Surgeon: Carlo Mercedes MD; [facility]; Service: Cardiovascular IABP placement 05/09/[address] [...] file Gets together: Not on file Attends hoahaoism service: Not on file Active member of [...] 10/15/2019 2:26 PM EDT CARDIOLOGY PROGRESS NOTE [facility] [address]) [facility] [address] [facility] [address] Physicians: Moises Patel MD (Family); No [...] plaque stabilization therapy. Coronary artery disease involving [place] coronary artery of [place] heart without angina pectoris Patient has a [...] review of systems obtained by the medical communication specialist. Vitals: Vitals: 10/15/19 1406 BP: (!) 142/85 BP Location: Right arm Patient Position: Sitting BP Cuff Size: X-large Adult Pulse: 83 SpO2: 95% Weight: 120.2 kg (265 lb 1.6 oz) Height: 5' 6 1. TIA (transient ischemic attack) 2. Essential hypertension 3. Mixed hyperlipidemia 4. Coronary artery disease involving [place] coronary artery of [place] heart without angina pectoris 5. Centrilobular emphysema (HCC) 6. ISAC on CPAP 7. Nicotine abuse Anita Rowland MD documented in this encounter* Juan Low, [facility] - 01/29/2019 9:56 AM EST Patient ID: Patient Name: Fernando Helton Admit Date: 01/17/2019 MR #: [id number] : 1970 Current location: [facility] Physicians: Moises Patel MD (Family); Kristin [...] supplies. 01/[address]PM. Follow up with Dr. Molina in 6-8 weeks. Check BG BID. 2. 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 Bev Tolentino Metabolic syndrome Mood disorder ([facility]) Nasal fracture Obstructive sleep apnea noncompliant with CPAP Orthostatic dizziness with intermittent syncope Pericarditis 02/25/07; 09/23/17 Pneumomediastinum ([facility]) 01/12/2007 secondary to severe coughing spell & ruptured alveoli Rotator cuff tear, right 1997 s/p repair SLAP tear of shoulder 2011 left - s/p surgery to place [address] elevation myocardial infarction (STEMI) of anterolateral wall ([facility]) 05/09/2012 anterolateral STEMI involving left anterior descending coronary artery ([facility]) 09/25/2014 anterior Superficial thrombophlebitis of right upper extremity 12/26/2006 Past Surgical History: Procedure Laterality Date APPENDECTOMY 1998 BONE MARROW BIOPSY W/ ASPIRATION Left 11/27/2016 L posterior iliac crest; Dr. Bev Tolentino CABG OFF PUMP N/A 01/24/2019 Procedure: Coronary Artery Bypass graft x1 with Left Internal Mammary Artery graft, OFF PUMP; Surgeon: Neo Mcneil MD; Location: [facility]; Service: Cardiothoracic CARDIAC CATHETERIZATION 09/24/2014 Segment [...] Heart Cath; Surgeon: Carlo Mercedes MD; [facility]; Service: Cardiovascular IABP placement 05/09/[address] [...] mg 75 mg Oral Daily Miroslava Caruso [facility],PharmD 75 mg at 01/28/19 0840 dextrose [...] 0-20 Units 0-20 Units Subcutaneous at bedtime Nancy Molina MD 0 Units at 01/25/192054 insulin lispro (HumaLOG) injection 0-30 Units 0-30 Units Subcutaneous TID AC Nancy Molina MD0 Units at 01/28/19 1630 insulin regular [...] diabetes mellitus type 2, managed by Dr. Nancy Molina Postoperative acute kidney injury, new onset, improved [...] Helton Date of : 1970 Sex: Male outcomes manager following for high risk for readmission [...] explanation and handout Response: verbalizes understanding * Nancy Molina MD - 01/28/2019 8:35 AM EST Patient ID: Patient Name: Fernando Helton Admit Date: 01/17/2019 MR #: [id number] : 1970 Current location: [facility] Physicians: Moises Patel MD (Family); Kristin [...] stable. Blood Glucoses: 01/20: 134 (from Chemistry 12/9 AM) 01/21: 116---119---175---147 01/22: 125---116---107---142 01/23 124---106---110---163 [...] History: Diagnosis Date Acute respiratory failure ([facility]) 09/2014 requring mechanical ventilation Anxiety Bilateral lower extremity edema R > L CAD (coronary artery disease) CAD s/p [facility] with 1 stent in left main 07/2012, replaced 09/2014 Cardiac arrest with ventricular fibrillation ([facility]) 09/25/2014 CHF (congestive heart failure), NYHA class I, chronic, diastolic ([facility]) Chronic sinusitis Claudication of right lower extremity ([facility]) Cluster headache COPD (chronic obstructive pulmonary disease) ([facility]) 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 Bev Tolentino Metabolic syndrome Mood disorder ([facility]) Nasal fracture Obstructive sleep apnea noncompliant with CPAP Orthostatic dizziness with intermittent syncope Pericarditis 02/25/07; 09/23/17 Pneumomediastinum ([facility]) 01/12/2007 secondary to severe coughing spell & ruptured alveoli Rotator cuff tear, right 1997 s/p repair SLAP tear of shoulder 2011 left - s/p surgery to place [address] elevation myocardial infarction (STEMI) of anterolateral wall ([facility]) 05/09/2012 anterolateral STEMI involving left anterior descending coronary artery ([facility]) 09/25/2014 anterior Superficial thrombophlebitis of right upper extremity 12/26/2006 Past Surgical History: Procedure Laterality Date APPENDECTOMY 1998 BONE MARROW BIOPSY W/ ASPIRATION Left 11/27/2016 L posterior iliac crest; Dr. Bev Tolentino CABG OFF PUMP N/A 01/24/2019 Procedure: Coronary Artery Bypass graft x1 with Left Internal Mammary Artery graft, OFF PUMP; Surgeon: Neo Mcneil MD; Location: [facility]; Service: Cardiothoracic CARDIAC CATHETERIZATION 09/24/2014 Segment [...] Heart Cath; Surgeon: Carlo Mercedes MD; [facility]; Service: Cardiovascular IABP placement 05/09/[address] [...] Recent Labs 01/26/19 0432 01/27/19 0418 01/28/19 0434 WBC 14.20* 16.03* 10.07 HGB 13.0* 11.2* [...] PRN Given, 650 mg at 01/25 2102 Drips: dextrose 5 % and sodium chloride [...] diabetes mellitus type 2, managed by Dr. Nancy Molina Postoperative acute kidney injury, new onset, improved [...] consultation Consider losartan in outpatient setting CPT: 31977 * Louise Caruso RN - 01/27/2019 12:59 PM EST DISCHARGE PLAN PROGRESS NOTE Date: 01/27/2019 Time: 12:59 PM Patient Name: Fernando Helton Date of : 1970 Sex: Male outcomes manager following for high risk for readmission score. He is from home with his spouse and is s/p Cabg post op day #3 An echo has been ordered along with a kub. * Johan Koch PA-C - 01/27/2019 7:44 AM EST Patient ID: Patient Name: Fernando Helton Admit Date: 01/17/2019 MR #: [id number] : 1970 Current location: [facility] Physicians: Moises Patel MD (Family); Kristin [...] History: Diagnosis Date Acute respiratory failure ([facility]) 09/2014 requring mechanical ventilation Anxiety Bilateral lower extremity edema R > L CAD (coronary artery disease) CAD s/p [facility] with 1 stent in left main 07/2012, replaced 09/2014 Cardiac arrest with ventricular fibrillation (HCC) 09/25/2014 CHF (congestive heart failure), NYHA class I, chronic, diastolic ([facility]) Chronic sinusitis Claudication of right lower extremity ([facility]) Cluster headache COPD (chronic obstructive pulmonary disease) ([facility]) 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 Bev Tolentino Metabolic syndrome Mood disorder ([facility]) Nasal fracture Obstructive sleep apnea noncompliant with [...] involving left anterior descending coronary artery ([facility]) 09/25/2014 anterior Superficial thrombophlebitis of right upper [...] Heart Cath; Surgeon: Carlo Mercedes MD; [facility]; Service: Cardiovascular IABP placement 05/09/[address] [...] you. Electronically signed by: Johan Koch PA-C, RUSTS 01/27/19 7:47 AM * Kristin Walker PA-C [...] mg, Oral, Daily Given, 100 mg at 01/26 937 enoxaparin (LOVENOX) syringe 40 mg 40 mg, SubQ, BID Given, 40 mg at 01/26 2017 ferrous sulfate tablet 325 mg 325 mg, Oral, TID with meals Given, 325 mg at 01/26 1659 insulin lispro (HumaLOG) injection 0-20 Units 0-20 [...] diabetes mellitus type 2, managed by Dr. Nancy Molina Postoperative acute kidney injury, new onset Postoperative hyponatremia Postoperative acute leukocytosis, upward trending secondary to hypoventilation and bilateral posterior flank pain Postoperative acute surgical blood loss anemia, downward trending, secondary to possible dilution PLAN: Transthoracic limited echocardiography to assess LV function 500 mL 0.9% normal saline bolus Stop lisinopril Stop Coreg IV Tylenol x24 hours for pain KUB Serum troponin x3 CPT: 76056 * Nancy Molina MD - 01/26/2019 7:51 AM EST Patient ID: Patient Name: Fernando Helton Admit Date: 01/17/2019 MR #: [id number] : 1970 Current location: [facility] Physicians: Moises Patel MD (Family); Kristin [...] History: Diagnosis Date Acute respiratory failure ([facility]) 09/2014 requring mechanical ventilation Anxiety Bilateral lower extremity edema R > L CAD (coronary artery disease) CAD s/p [facility] with 1 stent in left main 07/2012, replaced 09/2014 Cardiac arrest with ventricular fibrillation ([facility]) 09/25/2014 CHF (congestive heart failure), NYHA class I, chronic, diastolic ([facility]) Chronic sinusitis Claudication of right lower extremity ([facility]) Cluster headache COPD (chronic obstructive pulmonary disease) ([facility]) 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 Bev Tolentino Metabolic syndrome Mood disorder ([facility]) Nasal fracture Obstructive sleep apnea noncompliant with CPAP Orthostatic dizziness with intermittent syncope Pericarditis 02/25/07; 09/23/17 Pneumomediastinum ([facility]) 01/12/2007 secondary to severe coughing spell & ruptured alveoli Rotator cuff tear, right 1997 s/p repair SLAP tear of shoulder 2011 left - s/p surgery to place [address] elevation myocardial infarction (STEMI) of anterolateral wall ([facility]) 05/09/2012 anterolateral STEMI involving left anterior descending [...] Heart Cath; Surgeon: Carlo Mercedes MD; [facility]; Service: Cardiovascular IABP placement 05/09/[address] [...] continue to follow this patient with you. Nancy Molina MD * Jacob Cam PA-C - 01/26/2019 [...] Walker PA-C, Last Rate: 100 mL/hr at 01/25/196, 2,000 mg at 01/25/192345 dextrose 5 % [...] 0-20 Units, 0-20 Units, Subcutaneous, at bedtime, Nancy Molina MD, 0 Units at 01/25/192054 insulin lispro (HumaLOG) injection 0-30 Units, 0-30 Units, Subcutaneous, TID AC, Nancy Molina MD, 0 Units at 01/25/191729 insulin regular [...] IVPB, 1,250 mg, Intravenous, Q12H, Pallavi Barnett [facility],PharmD, Last Rate: 250 mL/hr at 01/25/192058, [...] will defer to the judgement of the massage coordinator. Attempted to obtain an echo, but informed [...] deep breath. OBJECTIVE: Right IJ cordis with [place] catheter, right brachial arterial line, mediastinal and [...] - Open Heart, Protocol 1 0.7 Units/hr (01/25/19602) lidocaine cardiac 2 mg/min (01/25/19602) phenylephrine (WILLIAM-SYNEPHRINE) infusion sodium chloride 0.9 % [...] Walker PA-C, Last Rate: 30 mL/hr at 01/25/19602, 2 mg/min at 01/25/19602 mupirocin (BACTROBAN) 2 [...] IVPB, 1,250 mg, Intravenous, Q12H, Pallavi Barnett [facility],PharmD, Stopped at 01/24/19 2107 vancomycin per pharmacy 1 each, 1 each, Intravenous, as indicated by pharmacokinetics, Kristin Anne PA-C * Nancy Molina MD - 01/25/2019 7:55 AM EST Patient ID: Patient Name: Fernando Helton Admit Date: 01/17/2019 MR #: [id number] : 1970 Current location: 4028 Physicians: Moises Patel MD (Family); Kristin BARCENAS [...] (coronary artery disease) CAD s/p [facility] with 1 stent in left main 07/2012, [...] Bev Tolentino Metabolic syndrome Mood disorder ([facility]) Nasal fracture Obstructive sleep apnea noncompliant with CPAP Orthostatic dizziness with intermittent syncope Pericarditis 02/25/07; 09/23/17 Pneumomediastinum (HCC) 01/12/2007 secondary to severe coughing spell & ruptured alveoli Rotator cuff tear, right 1997 s/p repair SLAP tear of shoulder 2011 left - s/p surgery to place [address] elevation myocardial infarction (STEMI) of anterolateral wall ([facility]) 05/09/2012 anterolateral STEMI involving left anterior descending coronary artery ([facility]) 09/25/2014 anterior Superficial thrombophlebitis of right upper [...] [place] CARDIAC CATHETERIZATION 11/24/[address] Rowland [facility] 05/27/2015 CORONARY ANGIOPLASTY 12/25/2014 PCI with [...] Heart Cath; Surgeon: Carlo Mercedes MD; [facility]; Service: Cardiovascular IABP placement 05/09/[address] [...] continue to follow this patient with you. Nancy Molina MD * Louise Caruso RN - 01/24/2019 1:23 PM EST DISCHARGE PLAN PROGRESS NOTE Date: 01/24/2019 Time: 1:25 PM Patient Name: Fernando Helton Date of : 1970 Sex: Male outcomes manager following the patient for high risk for readmission. He is s/p CABG x1 on 01/24. He isfrom home with his spouse. Discharge need is uncertain at this time. Will continue to follow. * Kristin Walker PA-C - 01/24/2019 6:51 AM EST 01/24/19 Fernando Priyanka Helton SUBJECTIVE: Patient resting supine in bed, [...] 98% BMI 40.18 kg/m Labs: Recent Labs 01/22/1952601/23/198 01/24/19 0342 NA 135 133* 134* K 3.9 4.0 3.6 CL 102 99 98 BICARB 25 27 27 BUN 26* 25 26* CREATININE 1.23 1.22 1.19 GLUCOSE 125* 124* 148* Recent Labs 01/22/19 0501/23/198 01/24/19 0342 WBC 11.38* 12.17* 10.92 HGB [...] Daily Given, 81 mg at 01/23 0949 [Apr] atorvastatin (LIPITOR) tablet 20 mg 20 mg, Oral, at bedtime Given, 20 mg at 01/23 2057 [Apr] budesonide-formoterol (SYMBICORT) 160-4.5 mcg/actuation inhaler 2 puff 2 puff, Inhl, BIDGiven, 2 puff at 01/23 1900 [Apr] carvedilol (COREG) tablet 25 mg 25 mg, Oral, BID with meals Given, 25 mg at 01/23 1854 [Apr] furosemide (LASIX) injection 20 mg 20 mg, IV, Q8H JUVENCIO Given, 20 mg at 01/24 2224 [Apr] ipratropium-albuterol (DUO-NEB) 0.5-2.5 mg/3 ml nebulizer solution 3 mL 3 mL, nebu, Q6H JUVENCIO Given, 3 mL at 01/23 1900 [Apr] lisinopril (PRINIVIL,ZESTRIL) tablet 10 mg 10 mg, Oral, Daily with lunch Given, 10 mg at103/26 1257 [Apr] mupirocin (BACTROBAN) 2 % ointment (sub for nasal use) No Dose/Rate, Nasl, BID Given, NoDose/Rate at 01/23 2059 [Apr] nitroGLYCERIN (NITRO-BID) 2 % ointment 1 inch 1 inch, TP, Q6H Given, 1 inch at 01/17 2118 [MAR Hold] pantoprazole (PROTONIX) EC tablet 40 mg 40 mg, Oral, BID Given, 40 mg at 01/23 2057 [APR Hold] potassium chloride SA (K-DUR,KLOR-CON) CR tablet 10 mEq 10 mEq, Oral, Daily Given, 10 mEq at 01/23 0845 [MAR Hold] rOPINIRole (REQUIP) tablet 2 mg 2 mg, Oral, Nightly Given, 2 mg at 01/23 1854 [APR Hold] sodium chloride (PF) (NS) flush 5 mL 5 mL, IV, Q8H JUVENCIO Given, 5 mL at 01/23 2200 [APR Hold] varenicline (CHANTIX) tablet 1 mg 1 mg, Oral, BID Given, 1 mg at 01/23 2057 Drips: [MAR Hold] heparin infusion (weight based dosing) 19 Units/kg/hr (01/24/19 0456) [MAR Hold] heparin [MAR Hold] sodium chloride 0.9 % Physical Exam [...] ISAC and morbid obesity who presented to [facility] on 01/17/2019 with complaints of increasing chest [...] 20. Cardiac arrest with ventricular fibrillation with [place] on 09/24/2014 21. Acute respiratory failure requiring [...] on to chart N.p.o. after midnight CPT: 39104 * Delmi Donis MD - 01/23/2019 3:26 PM EST [facility] Medicine Inpatient Follow-up 01/23/2019 Delmi Donis MD [facility] Patient: Fernando Helton Date of : 1970 (48 y.o.) PCP: Moises Patel MD ASSESSMENT/PLAN: Fernando Helton 48 y.o. male presented with complains of Active Problems: Chest pain ACS (acute coronary syndrome) ([facility]) PAD (peripheral artery disease) ([facility]) PLAN: Coronary artery disease - pateint denies any chest pain. patient is status post left heart cath on 01/20 he was found to have an in-stent occlusion of the mid LAD. Cardiovascular surgery has been consulted patient scheduled for CABG on 01/24/2019, Dr. Mcneil following PAD; patient seen by vascular surgery today [place]: ABIs have been done. Recommendation follow-up in the clinic as an outpatient. Continue smoking cessation, high intensity statin Plavix and aspirin. Diabetes mellitus; Dr. Molina consulted hemoglobin A1c is 6.5, continue diabetic [...] 3:46 PM IMAGING: Reviewed 3:46 PM * Nancy Molina MD - 01/23/2019 9:02 AM EST Patient ID: Patient Name: Fernando Helton Admit Date: 01/17/2019 MR #: [id number] : 1970 Current location: [facility] Physicians: Moises Patel MD (Family); Kristin [...] (coronary artery disease) CAD s/p [facility] with 1 stent in left main 07/2012, replaced 09/2014 Cardiac arrest with ventricular fibrillation ([facility]) 09/25/2014 CHF (congestive heart failure), NYHA class I, chronic, diastolic ([facility]) Chronic sinusitis Claudication of right lower extremity ([facility]) Cluster headache COPD (chronic obstructive pulmonary disease) ([facility]) 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 Bev Tolentino Metabolic syndrome Mood disorder ([facility]) Nasal fracture Obstructive sleep apnea noncompliant with CPAP Orthostatic dizziness with intermittent syncope Pericarditis 02/25/07; 09/23/17 Pneumomediastinum ([facility]) 01/12/2007 secondary to severe coughing spell & ruptured alveoli Rotator cuff tear, right 1997 s/p repair SLAP tear of shoulder 2011 left - s/p surgery to place [address] elevation myocardial infarction (STEMI) of anterolateral wall ([facility]) 05/09/2012 anterolateral STEMI involving left anterior descending coronary artery ([facility]) 09/25/2014 anterior Superficial thrombophlebitis of right upper [...] Heart Cath; Surgeon: Carlo Mercedes MD; [facility]; Service: Cardiovascular IABP placement 05/09/[address] [...] continue to follow this patient with you. Nancy Molina MD * Kristin Walker PA-C - 01/23/2019 [...] puff, Inhl, BID Given, 2 puff at 01/22 06 carvedilol (COREG) tablet 25 mg 25 mg, Oral, BID with meals Given, 25 mg at 01/22 185 furosemide (LASIX) injection 20 mg 20 mg, IV, Q8H JUVENCIO Given, 20 mg at 01/23 0635 ipratropium-albuterol (DUO-NEB) 0.5-2.5 mg/3 ml nebulizer solution 3 mL 3 mL, nebu, Q6H JUVENCIO Given, 3 mL at 01/22 06 lisinopril (PRINIVIL,ZESTRIL) tablet 10 mg 10 mg, Oral, Daily with lunch Given, 10 mg at 01/22 1419 mupirocin (BACTROBAN) 2 % ointment (sub for nasal use) No Dose/Rate, Nasl, BID Given, No Dose/Rate at 01/22 2100 nitroGLYCERIN (NITRO-BID) 2 % ointment 1 inch 1 inch, TP, Q6H Given, 1 inch at 01/17 2118 pantoprazole (PROTONIX) EC tablet 40 mg 40 mg, Oral, BID Given, 40 mg at 01/22 2242 potassium chloride SA (K-DUR,KLOR-CON) CR tablet 10 [...] BID PRN Given, 500 mg at 01/22 2242 ondansetron (ZOFRAN) injection 4 mg 4 mg, [...] therapy, former tobacco abuse, hypertension, hyperlipidemia, COPD, ISCA and morbid obesity who presented to [facility] on 01/17/2019 with complaints of increasing chest [...] 20. Cardiac arrest with ventricular fibrillation with [place] on 09/24/2014 21. Acute respiratory failure requiring [...] on to chart N.p.o. after midnight CPT: 16264 * Louise Caruso RN - 01/22/2019 2:32 PM EST DISCHARGE PLAN PROGRESS NOTE Date: 01/22/2019 Time: 2:32 PM Patient Name: Fernando Helton Date of : 1970 Sex: Male outcomes manager following the patient for High risk for readmission. He is from home with a spouse. Hehad a heart cath on 01/20 and is a consult with cardiovascular surg and had now been scheduled for aCABG on 01/24. Will follow for any discharge need. * Delmi Donis MD - 01/22/2019 10:05 AM EST [facility] Medicine Inpatient Follow-up 01/22/2019 Delmi Donis MD [facility] Patient: Fernando Helton Date of : 1970 (48 y.o.) PCP: Moises Patel MD ASSESSMENT/PLAN: Fernando Helton 48 y.o. male presented with complains of Active Problems: Chest pain ACS (acute coronary syndrome) (HCC) PAD (peripheral artery disease) ([facility]) PLAN: Chest pain; intermittent, continue to monitor on telemetry; patient is status post left heart cath on 01/20 he was found to have an in-stent occlusion of the mid LAD. Cardiovascular surgery has been consulted Coronary artery disease; cardiovascular surgery has patient was scheduled for CABG on 01/24/2019, Dr. Mcneil following PAD; patient seen by vascular surgery today [place]: ABIs have been done. Recommendation follow-up in the clinic as an outpatient. Continue smoking cessation, high intensity statin Plavix and aspirin. Diabetes mellitus; Dr. Molina consulted hemoglobin A1c is 6.5, patient diet [...] with meals furosemide 20 mg Intravenous Q8H JUVENICO ipratropium-albuterol 3 mL Nebulization Q6H JUVENCIO lisinopril [...] 7 days Lab Units 01/22/1952601/21/19 0607 01/20/19 1021 01/20/19 0419 WBC K/mcL [...] 01/22/2019 8:52 AM EST Cardiology Progress Note [facility] Cardiology Sign-Off Discharge [...] have been negative, EKG showed old anterolateral [place] with mild ST-T changes with d-dimer negative [...] Lab Review Today's available lab reviewed. * Juan Low CNP - 01/22/2019 8:34 AM EST Patient ID: Patient Name: Fernando Helton Admit Date: 01/17/2019 MR #: [id number] : 1970 Current location: [facility] Physicians: Moises Patel MD (Family); Kristin [...] History: Diagnosis Date Acute respiratory failure ([facility]) 09/2014 requring mechanical ventilation Anxiety Bilateral lower extremity edema R > L CAD (coronary artery disease) CAD s/p [facility] with 1 stent in left main 07/2012, replaced 09/2014 Cardiac arrest with ventricular fibrillation ([facility]) 09/25/2014 CHF (congestive heart failure), NYHA class I, chronic, diastolic ([facility]) Chronic sinusitis Claudication of right lower extremity ([facility]) Cluster headache COPD (chronic obstructive pulmonary disease) ([facility]) 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 Bev Tolentino Metabolic syndrome Mood disorder ([facility]) Nasal fracture Obstructive sleep apnea noncompliant with [...] Heart Cath; Surgeon: Carlo Mercedes MD; [facility]; Service: Cardiovascular IABP placement 05/09/[address] [...] continue to follow this patient with you. Juan Low CNP * Kristin Walker PA-C - 01/22/2019 7:09 AM EST 01/22/19 Fernando Priyanka Helton SUBJECTIVE: Patient resting supine in bed, [...] 96% BMI 39.85 kg/m Labs: Recent Labs 01/20/1941801/21/19 0607 01/22/19 05 NA 138 135 135 K 3.9 4.0 3.9 CL 106 102 102 BICARB 24 26 25 BUN 19 22 26* CREATININE 1.17 1.11 1.23 GLUCOSE 134* 116* 125* Recent Labs 01/20/19 0419 01/20/19 1021 01/21/19 0607 01/22/19 0527 WBC [...] mg, Oral, Daily Given, 81 mg at 12/10 0827 atorvastatin (LIPITOR) tablet 20 mg 20 mg, [...] therapy, former tobacco abuse, hypertension, hyperlipidemia, COPD, IASC and morbid obesity who presented to [facility] on 01/17/2019 with complaints of increasing chest [...] 20. Cardiac arrest with ventricular fibrillation with [place] on 09/24/2014 21. Acute respiratory failure requiring [...] General Cardiology Inpatient Follow-up Heart & Vascular [facility] 01/21/2019 Columba Rodriguez CNP [facility] Patient: Fernando Helton Date of : 1970 (48 y.o.) Referring Provider: No ref. provider found PCP: Moises Patel MD Assessment/Plan: ACS (acute coronary syndrome) ([facility]) Assessment & Plan Patient had presented 01/20/2019 with chest tightness associated with nausea and shortness of breath. Occasionally discomfort would radiate into the left jaw. Serial troponins have been negative, EKG shows old anterolateral [place] with mild ST-T changes with d-dimer negative [...] History: Diagnosis Date Acute respiratory failure ([facility]) 09/2014 requring mechanical ventilation Anxiety Bilateral lower extremity edema R > L CAD (coronary artery disease) CAD s/p [facility] with 1 stent in left main 07/2012, replaced 09/2014 Cardiac arrest with ventricular fibrillation ([facility]) 09/25/2014 CHF (congestive heart failure), NYHA class I, chronic, diastolic ([facility]) Chronic sinusitis Claudication of right lower extremity ([facility]) Cluster headache COPD (chronic obstructive pulmonary disease) ([facility]) 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 Pablo Exten Metabolic syndrome Mood disorder ([facility]) Nasal fracture Obstructive sleep apnea noncompliant with CPAP Orthostatic dizziness with intermittent syncope Pericarditis 02/25/07; 09/23/17 Pneumomediastinum ([facility]) 01/12/2007 secondary to severe coughing spell & ruptured alveoli Rotator cuff tear, right 1997 s/p repair SLAP tear of shoulder 2011 left - s/p surgery to place [address] elevation myocardial infarction (STEMI) of anterolateral wall ([facility]) 05/09/2012 anterolateral STEMI involving left anterior descending coronary artery ([facility]) 09/25/2014 anterior Superficial thrombophlebitis of right upper [...] occlusion of left anterior descending by Dr. Rowalnd CARDIAC CATHETERIZATION Left 09/28/2015 Dr. Rowland Predominant [...] Heart Cath; Surgeon: Carlo Mercedes MD; [facility]; Service: Cardiovascular IABP placement 05/09/[address] [...] injection 20 mg 20 mg Intravenous Q8H [facility] Carlo Mercedes MD 20 mg at [...] 0.5 mg 0.5 mg Oral Q6H PRN Cabrera Navarro CNP 0.5 mg at 01/21/19 0827 [...] 5 mg 5 mg Oral Nightly PRN Cabrera Navarro CNP 5 mg at 01/20/192044 Current [...] 5' 7 Wt 116.6 kg (257 lb) [id number]% BMI 40.25 kg/m Physical Examination: Physical Exam [...] Final Result by Magda Durán MD (12/10/2018 5034) Cardiac Catheterization Final Result by Carlo Mercedes [...] Final Result by Interface, Lab Results In [place] (01/17/2019 1219) Normal sinus rhythm Low voltage QRS Inferior infarct , age undetermined Cannot rule out Anteroseptal infarct , age undetermined Abnormal ECG ECG Cart Interpretation see physician note for interpretation. Confirmed by Brandy Kc ([id number]) on 01/17/2019 12:18:52 PM Columba Rodriguez CNP * Ashley Caruso CNP - 01/21/2019 12:30 PM EST [facility] Medicine Inpatient Follow-up 01/21/2019 Ashley Caruso CNP [facility] Patient: Fernando Helton Date of : 1970 (48 y.o.) PCP: Moises Patel MD ASSESSMENT/PLAN: Fernando Helton 48 y.o. male presented with complains of Active Problems: Chest pain ACS (acute coronary syndrome) ([facility]) PAD (peripheral artery disease) ([facility]) PLAN: Chest pain; intermittent, continue to monitor [...] PAD; patient seen by vascular surgery today [place]: ABIs have been done. Recommendation follow-up in the clinic as an outpatient. Continue smoking cessation, high intensity statin Plavix and aspirin. Diabetes mellitus; Dr. Molina consulted hemoglobin A1c is 6.5, patient diet [...] 5' 7 Wt 116.6 kg (257 lb) BlF277% BMI 40.25 kg/m General Appearance: Alert, well [...] CHLORIDE mmol/L 102 106 108 BUN mg/dL CREATININE mg/dL 1.11 1.17 1.15 GLUCOSE mg/dL [...] 12:31 PM IMAGING: Reviewed 12:31 PM * Cabrera Navarro CNP - 01/20/2019 12:25 PM EST [facility] Medicine Inpatient H&P 01/20/2019 Cabrera Navarro CNP [facility] Patient: Fernando Helton Date of : [...] Chest pain ACS (acute coronary syndrome) (HCC) Plan: Will admit patient to the telemetry [...] (coronary artery disease) CAD s/p [facility] with 1 stent in left main 07/2012, [...] Bev Tolentino Metabolic syndrome Mood disorder ([facility]) Nasal fracture Obstructive sleep apnea noncompliant with [...] 12:25 PM IMAGING: Reviewed 12:25 PM * Cabrera Navarro CNP - 01/19/2019 10:57 AM EST [facility] Medicine Inpatient H&P 01/19/2019 Cabrera Navarro CNP [facility] Patient: Fernando Helton Date of : [...] (coronary artery disease) CAD s/p [facility] with 1 stent in left main 07/2012, replaced 09/2014 Chest pain Circulation problem right leg COPD (chronic obstructive pulmonary disease) ([facility]) Fatigue GERD (gastroesophageal reflux disease) Headache HLD (hyperlipidemia) HTN (hypertension) Metabolic syndrome Mood disorder ([facility]) Obstructive sleep apnea Pneumomediastinum ([facility]) 01/2007 Rotator cuff tear, right 1997 s/p repair SLAP tear of shoulder 2011 left - s/p surgery to place [address] elevation myocardial infarction (STEMI) of anterolateral wall ([facility]) 05/09/12 Past Surgical History: Procedure Laterality Date [...] 10:57 AM IMAGING: Reviewed 10:57 AM * Cabrera Navarro CNP - 01/18/2019 10:36 AM EST [facility] Medicine Inpatient H&P 01/18/2019 Cabrera Navarro CNP [facility] Patient: Fernando Helton Date of : [...] myocardial infarction (STEMI) of anterolateral wall ([facility]) 05/09/12 Past Surgical History: Procedure Laterality Date [...] General Cardiology Clinic Follow-up Heart & Vascular [facility] 12/26/2018 Maykel Whitney MD [address] [place] [address] Medical Office [facility] [address] Patient: Fernando Helton Date of : 1970 (48 y.o.) PCP: Moises Patel MD Assessment & Plan Heart failure (HCC) I believe he has [...] Final Result by Magda Durán MD (12/10/2018 6554) Review of Systems: Review of Systems Constitution: [...] less than 130 mmHg. TANNER PALMA MSc, [email or web address]. [email or web address] Staff Neurologist & Movement Disorder Specialist [facility] (Adj Asst: Professor, [employer] Dept of Neurology) ELLIOT Peterson [facility], [facility] [address] Clinic Fax: [phone] documented in this encounter Summary Purpose Family History No Family History Records FoundNo Family History Records FoundNo Family History Records FoundNo Family History Records FoundNo Family History Records FoundNo Family History Records FoundNo Family History Records FoundNo Family History Records FoundNo Family History Records Found Advance Directives No Advanced Directives Records FoundDocuments on File Type Date Recorded Patient Predictive Maintenance Technician Expl anation Advance Directives and Livin g Will 09/27/2018 7:30 PM Documents on File Type Date Recorded Patient Predictive Maintenance Technician Expl anation Advance Directives and Livin g Will 12/18/2018 10:26 AM Documents on File Type Date Recorded Patient Predictive Maintenance Technician Expl anation Advance Directives and Livin g Will 01/17/2019 12:26 PM Latest Code Status on File Code Status Date Activated Date Inactivated Comments Full Code 01/20/2019 9:05 AM Full Code - Unverified 01/17/2019 4:34 PM 01/20/2019 9:0 5 AM Documents on File Type Date Recorded Patient Predictive Maintenance Technician Expl anation Advance Directives and Livin g Will 01/31/2019 8:54 AM Latest Code Status on File Code Status Date Activated Date Inactivated Comments Full Code 01/24/2019 10:19 AM Full Code 01/20/2019 9:05 AM 01/24/2019 10:19 AM Full Code - Unverified 01/17/2019 4:34 PM 01/20/2019 9:0 5 AM Documents on File Type Date Recorded Patient Predictive Maintenance Technician Expl anation Advance Directives and Livin g Will 02/02/2019 9:03 AM Latest Code Status on File Code Status Date Activated Date Inactivated Comments Full Code 02/02/2019 10:37 AM Full Code 01/24/2019 10:19 AM 02/02/2019 10:22 AM Full Code 01/20/2019 9:05 AM 01/24/2019 10:19 AM Documents on File Type Date Recorded Patient Predictive Maintenance Technician Expl anation Advance Directives and Livin g Will 02/06/2019 12:35 PM Latest Code Status on File Code Status Date Activated Date Inactivated Comments Full Code 02/02/2019 10:37 AM Full Code 01/24/2019 10:19 AM 02/02/2019 10:22 AM Documents on File Type Date Recorded Patient Predictive Maintenance Technician Expl anation Advance Directives and Livin g Will 02/13/2019 8:39 AM Documents on File Type Date Recorded Patient Predictive Maintenance Technician Expl anation Advance Directives and Livin g Will 02/21/2019 8:55 AM Documents on File Type Date Recorded Patient Predictive Maintenance Technician Expl anation Advance Directives and Livin g Will 02/25/2019 8:52 PM Latest Code Status on File Code Status Date Activated Date Inactivated Comments Full Code 02/02/2019 10:37 AM 02/25/2019 8:18 PM Documents on File Type Date Recorded Patient Predictive Maintenance Technician Expl anation Advance Directives and Livin g Will 02/25/2019 8:52 PM Latest Code Status on File Code Status Date Activated Date Inactivated Comments Full Code 02/02/2019 10:37 AM 02/25/2019 8:18 PM Documents on File Type Date Recorded Patient Predictive Maintenance Technician Expl anation Advance Directives and Livin g Will 03/13/2019 10:55 AM Documents on File Type Date Recorded Patient Predictive Maintenance Technician Expl anation Advance Directives and Livin g Will 03/13/2019 10:55 AM Documents on File Type Date Recorded Patient Predictive Maintenance Technician Expl anation Advance Directives and Livin g Will 09/22/2019 9:34 AM Latest Code Status on File Code Status Date Activated Date Inactivated Comments Full Code 09/22/2019 10:48 AM 09/23/2019 7:50 PM Full Code 02/02/2019 10:37 AM 02/25/2019 8:18 PM Documents on File Type Date Recorded Patient Predictive Maintenance Technician Expl anation Advance Directives and Livin g Will 10/15/2019 10:09 PM Latest Code Status on File Code Status Date Activated Date Inactivated Comments Full Code 10/16/2019 12:56 AM 10/16/2019 6:18 PM Full Code 09/22/2019 10:48 AM 09/23/2019 7:50 PM Documents on File Type Date Recorded Patient Predictive Maintenance Technician Expl anation Advance Directives and Livin g Will 12/10/2018 7:30 PM Documents on File Type Date Recorded Patient Predictive Maintenance Technician Expl anation Advance Directives and Livin g Will 10/15/2019 10:09 PM Latest Code Status on File Code Status Date Activated Date Inactivated Comments Full Code 10/16/2019 12:56 AM 10/16/2019 6:18 PM Full Code 09/22/2019 10:48 AM 09/23/2019 7:50 PM Full Code 02/02/2019 10:37 AM 02/25/2019 8:18 PM Documents on File Type Date Recorded Patient Predictive Maintenance Technician Expl anation Advance Directives and Livin g Will 01/17/2019 12:26 PM Documents on File Type Date Recorded Patient Predictive Maintenance Technician Expl anation Advance Directives and Livin g Will 01/04/2019 5:09 PM Documents on File Type Date Recorded Patient Predictive Maintenance Technician Expl anation Advance Directives and Livin g Will 12/18/2018 10:26 AM Documents on File Type Date Recorded Patient Predictive Maintenance Technician Expl anation Advance Directives and Livin g Will 09/22/2019 9:34 AM Latest Code Status on File Code Status Date Activated Date Inactivated Comments Full Code 09/22/2019 10:48 AM 09/23/2019 7:50 PM Documents on File Type Date Recorded Patient Predictive Maintenance Technician Expl anation Advance Directives and Livin g Will 05/28/2020 3:48 PM Documents on File Type Date Recorded Patient Predictive Maintenance Technician Expl anation Advance Directives and Livin g Will 05/28/2020 3:48 PM Documents on File Type Date Recorded Patient Predictive Maintenance Technician Expl anation Advance Directives and Livin g Will 06/02/2020 3:48 PM Latest Code Status on File Code Status Date Activated Date Inactivated Comments Full Code - Unverified 06/02/2020 8:25 AM 06/02/2020 5:1 8 PM Full Code 10/16/2019 12:56 AM 10/16/2019 6:18 PM Documents on File Type Date Recorded Patient Predictive Maintenance Technician Expl anation Advance Directives and Livin g Will 06/10/2020 3:48 PM Documents on File Type Date Recorded Patient Predictive Maintenance Technician Expl anation Advance Directives and Livin g Will 06/10/2020 3:48 PM Latest Code Status on File Code Status Date Activated Date Inactivated Comments Full Code - Unverified 06/02/2020 8:25 AM 06/02/2020 5:1 8 PM Full Code 10/16/2019 12:56 AM 10/16/2019 6:18 PM Documents on File Type Date Recorded Patient Predictive Maintenance Technician Expl anation Advance Directives and Livin g Will 08/06/2020 3:48 PM Documents on File Type Date Recorded Patient Predictive Maintenance Technician Expl anation Advance Directives and Livin g [...] Advance Directives No December 07, 2022 2:37pm Latest Code Status on File Code Status Date Activated Date Inactivated Comments Full Code - Unverified 07/21/2022 4:03 PM 07/22/2022 2:28 PM Code Status History Code Status Date Activated Date Inactivated Comments Full Code 11/06/2021 1:33 PM 11/09/2021 5:21 PM Full Code - Unverified 06/02/2020 8:25 AM 06/02/2020 5:1 8 PM Full Code 10/16/2019 12:56 AM 10/16/2019 6:18 PM Full Code 09/22/2019 10:48 AM 09/23/2019 7:50 PM Date Activated Date Inactivated Comments 07/21/2022 4:03 PM 07/22/2022 2:28 PM Date Activated Date Inactivated Comments 11/06/2021 1:33 PM 11/09/2021 5:21 PM Date Activated Date Inactivated Comments 06/02/2020 8:25 AM 06/02/2020 5:18 PM Date Activated Date Inactivated Comments 10/16/2019 12:56 AM 10/16/2019 6:18 PM Date Activated Date Inactivated Comments 09/22/2019 10:48 AM 09/23/2019 7:50 PM Date Activated Date Inactivated Comments 07/21/2022 4:03 PM 07/22/2022 2:28 PM Date Activated Date Inactivated Comments 11/06/2021 1:33 PM 11/09/2021 5:21 PM Date Activated Date Inactivated Comments 06/02/2020 8:25 AM 06/02/2020 5:18 PM Date Activated Date Inactivated Comments 10/16/2019 12:56 AM 10/16/2019 6:18 PM Date Activated Date Inactivated Comments 09/22/2019 10:48 AM 09/23/2019 7:50 PM Date Activated Date Inactivated Comments 11/01/2023 6:26 PM 11/03/2023 1:55 PM Date Activated Date Inactivated Comments 07/21/2022 4:03 PM 07/22/2022 2:28 PM Date Activated Date Inactivated Comments 11/06/2021 1:33 PM 11/09/2021 5:21 PM Date Activated Date Inactivated Comments 06/02/2020 8:25 AM 06/02/2020 5:18 PM Date Activated Date Inactivated Comments 10/16/2019 12:56 AM 10/16/2019 6:18 PM Hospital Course Note [facility] [address] [facility] [place] [address] NAME FERNANDO HELTON [facility] [id number] 1970 ADMIT 09/23/2017 DISCH 09/25/2017 DISCHARGE SUMMARY [...] not included)... Discharge Instructions * Instructions* Torie Starks RN - 09/27/2018 Using a Metered-Dose Inhaler: Care [...] Log into your personal health record on [email or web address] and enter K111 in the Education box to learn more about Using a Metered-Dose Inhaler: Care Instructions. Current as of: October 17, 2017 Content Version: [id number] [employer]. Care instructions adapted under license by your healthcare professional. If you have questions about a medical condition or this instruction, always ask your healthcare professional. [employer] disclaims any warranty or liability for your [...] Log into your personal health record on [email or web address] and enter U629 in the Education box to learn more about Learning About Chronic Bronchitis. Current as of: October 17, 2017 Content Version: [id number] [employer]. Care instructions adapted under license by your healthcare professional. If you have questions about a medical condition or this instruction, always ask your healthcare professional. [employer] disclaims any warranty or liability for your use of this information. Please take your breathing treatments every 4-6 hours as directed. * Attachments The following attachments cannot be sent through Care Everywhere. * COPD Exacerbation Plan (Indian) documented in this encounter* Discharge Instr - AVS First Page* Kristin Byrnes PA-C - 01/23/2019 9:08 AM EST ALL ORDERS PER Dr. Neo Mcneil AND HIS TEAM ONLY. CALL CARDIAC SURGERY FOR ANY QUESTIONS/CONCERNSAT [phone], (OPTION #3 after 5 PM and on [...] blood sugars every Sunday and to Dr. Molina's office 4. Dr. Molina's phone number: [phone] Molina's fax number: [phone] HISTORY OF CONGESTIVE HEART FAILURE: 1. Check: [...] blood sugars every Sunday and to Dr. Molina's office 4. Dr. Molina's phone number: [phone] Molina's fax number: [phone] HISTORY OF CONGESTIVE HEART FAILURE: 1. Check: [...] be sent through Care Everywhere. * Pleurisy (Indian) documented in this encounter* Instructions* Brian Cordoba MD - 01/04/2019 prednisone for 5 days; and DuoNeb; stay away from passive smoking; follow-up with the PCP * Attachments The following attachments cannot be sent through Care Everywhere. * COPD: General Info (Indian) documented in this encounter* Discharge Instr - IP OT* Magda Brito OTR/L - 09/23/2019 3:39 PM EDT No further occupational therapy is needed. documented in this encounter Reason for Referral Status Reason Specialty Diagnoses / Procedures Referred By Contact Referred To Contact Pending Review Cardiology Diagnoses S/P CABG (coronary artery bypass graft) Procedures Stress test only, exercise Carlo Mercedes MD [address] [place] [address] Status Reason Specialty Diagnoses / Procedures Referred By Contact Referred To Contact Authorized Cardiology Diagnoses Coronary artery disease involving [place] coronary artery of [place] heart without angina pectoris Procedures Echocardiogram complete Anita Rowland MD [address] [place] [address] Status Reason Specialty Diagnoses / Procedures Referred By Contact Referred To Contact Authorized Cardiology Diagnoses TIA (transient ischemic attack) Procedures Cardiac event monitor Anita Rowland MD [address] [place] [address] Status Reason Specialty Diagnoses / Procedures Referre d By Contact Referred To Contact Closed Cardiology Diagnoses TIA (transient ischemic attack) Procedures Cardiac event monitor Anita Rowland MD [address] [place] [address] Status Reason Specialty Diagnoses / Procedures Referred By Contact Referred To Contact Authorized Radiology Diagnoses Chronic systolic congestive heart failure (HCC) Procedures MR Cardiac Morphology With And Without Contrast with Velocity Flow Patricia Louis, EL TEACHER [address] [place] [address] Status Reason Specialty Diagnoses / Procedures Referre d By Contact Referred To Contact Closed Radiology Diagnoses NSVT (nonsustained ventricular tachycardia) ([facility]) Abnormal EKG Procedures NM Myocardial Perfusion Multiple SPECT Anita Rowland MD [address] [place] [address] Status Reason Specialty Diagnoses / Procedures Re ferred By Contact Referred To Contact Closed Cardiology Diagnoses Other specified complications of surgical and medical care, not elsewhere classified, initial encounter Procedures Ultrasound duplex arterial arm left Anita Rowland MD [address] [place] [address] Status Reason Specialty Diagnoses / Procedures Referred By Contact Referred To Contact Pending Review Cardiology Diagnoses Other specified complications of surgical and medical care, not elsewhere classified, initial encounter Procedures Ultrasound duplex arterial arm left Anita Rowland MD [address] [place] [address] Specialty Diagnoses / Procedures Referred By Contac t Referred To Contact Cardiology Diagnoses Coronary artery disease involving [place] coronary artery of [place] heart without angina pectoris Procedures Ultrasound duplex arterial arm left Anita Rowland MD [address] [place] [address] Referral ID Status Reason Start Date Expiration Date V isits Requested Visits Authorized [id number] Authorized 04/02/2023 04/01/2024 1 1 Specialty Diagnoses / Procedures Referred By Contac t Referred To Contact Cardiology Diagnoses Syncope and collapse Procedures Echocardiogram complete Anita Rowland MD [address] [place] [phone] Referral ID Status Reason Start Date Expiration Date V isits Requested Visits Authorized [id number] Authorized 04/02/2023 04/01/2024 1 1 Specialty Diagnoses / Procedures Referred By Contac t Referred To Contact Cardiology Diagnoses Syncope and collapse Procedures Cardiac event monitor Anita Rowland MD [address] [place] [phone] Referral ID Status Reason Start Date Expiration Date V isits Requested Visits Authorized [id number] Pending Review 04/02/2023 04/01/2024 1 1 Referral ID Status Reason Start Date Expiration Date V isits Requested Visits Authorized [id number] New Request 05/07/2023 05/06/2024 1 1 Specialty Diagnoses / Procedures Referred By Contac t Referred To Contact Radiology Diagnoses Syncope and collapse SOB (shortness of breath) Procedures NM Myocardial Perfusion Multiple SPECT Anita Rowland MD [address] [place] [address] Referral ID Status Reason Start Date Expiration Date V isits Requested Visits Authorized [id number] New Request 05/07/2023 05/06/2024 4 4 Chief Complaint and Reason for Visit Chief [...] Without Contrast with Velocity Flow Patricia Louis, EL TEACHER [address] [place] [address] Status Reason Specialty Diagnoses / Procedures Referre [...] artery bypass graft) Kristin Walker PA-C [address] [place] [address] Cardio Pulm [address] [place] [address] Status Reason Specialty Diagnoses / Procedures Referred By Contact Referred To Contact Pending Review Cardiology Diagnoses S/P CABG (coronary artery bypass graft) Procedures Stress test only, exercise Carlo Mercedes MD [address] [place] [address] Reason Comments Heart Problem Status Reason Specialty Diagnoses / Procedures Referred By Contact Referred To Contact Authorized Specialty Services Required/Patie nt's Best Interest Cardiac Rehabilitation Diagnoses S/P CABG (coronary artery bypass graft) Kristin Walker PA-C [address] [place] [address] Cardio Pulm [address] [place] [address] Reason Comments Follow-up Follow up/Swelling Reason Comments Follow-up Overdue 6 monhth Status Reason Specialty Diagnoses / Procedures Referre d By Contact Referred To Contact Diagnoses Near syncope Status Reason Specialty Diagnoses / Procedures Referred By Contact Referred To Contact Pending Review Cardiology Diagnoses Chronic systolic heart failure (HCC) Hypertension, unspecified type Coronary artery disease involving [place] coronary artery of [place] heart without angina pectoris Procedures Echocardiogram complete w contrast Echocardiogram complete Patricia Louis CNS [address] [place] [address] Reason Onset Date Comments Medication Refill 04/12/2020 Reason Onset Date Comments Medication Refill 04/13/2020 Status Reason Specialty Diagnoses / Procedures Referred By Contact Referred To Contact Authorized Radiology Diagnoses Chronic systolic congestive heart failure (HCC) Procedures MR Cardiac Morphology With And Without Contrast with Velocity Flow Patricia Louis CNS [address] [place] [address] Status Reason Specialty Diagnoses / Procedures Referre [...] Contact Diagnoses Acute CVA (cerebrovascular accident) ([facility]) TIA (transient ischemic attack) Status Reason Specialty Diagnoses / Procedures Referre d By Contact Referred To Contact Closed Radiology Diagnoses NSVT (nonsustained ventricular tachycardia) ([facility]) Abnormal EKG Procedures NM Myocardial Perfusion Multiple SPECT Anita Rowland MD [address] [place], [place] [id number] Status Reason Specialty Diagnoses / Procedures Referre [...] duplex arterial arm left Anita Rowland MD [address] [place] [id number] Reason Onset Date Comments Medication Refill 06/10/2020 Status Reason Specialty Diagnoses / Procedures Referred By Contact Referred To Contact Pending Review Cardiology Diagnoses Other specified complications of surgical and medical care, not elsewhere classified, initial encounter Procedures Ultrasound duplex arterial arm left Anita Rowland MD [address] [place] [address] Reason Comments Medication Refill Reason Onset Date [...] is to be set up with Jesse Valencia Pt concerned with di fficulty sleeping. X2.5 months Reason Onset Date Comments Medication Refill 02/14/2022 Reason Comments Follow-up Follow-up, a.fib per vascular doctor. Reason Onset Date Comments Medication Refill 05/04/2023 Specialty Diagnoses / Procedures Referred By Myrna lopez Referred To Contact Diagnoses Chest pain Chest pain Referral ID Status Reason Start Date Expiration Date Visits Re quested Visits Authorized [id number] 1 1 (unrecognized sect ion and content) No Status Records FoundNo Status Records FoundNo Status Records FoundNo Status Records FoundNo Status Records FoundNo Status Records FoundNo Status Records FoundNo Status Records FoundNo Status Records Found INFORMATION SOURCE (unrecogn ized section and content) DATE CREATED AUTHOR 03/14/2018 [facility] DATE CREATED AUTHOR AUTHOR'S ORGANIZ ATION [facility] DATE CREATED AUTHOR AUTHOR'S ORGANIZ ATION 05/23/2020 [facility] DATE CREATED AUTHOR AUTHOR'S ORGANIZ ATION 11/12/2021 [facility] DATE CREATED AUTHOR AUTHOR'S ORGANIZ ATION 01/02/2022 [facility] DATE CREATED AUTHOR AUTHOR'S ORGANIZ ATION 12/20/2022 [facility] DATE CREATED AUTHOR AUTHOR'S ORGANIZ ATION 11/03/2023 [facility] DATE CREATED AUTHOR AUTHOR'S ORGANIZ ATION 11/09/2023 [facility] DATE CREATED AUTHOR AUTHOR'S ORGANIZ ATION 11/09/2023 [facility] Annie Kapadia RN - 09/27/2018 8:19 PM Annie Fu RN - 09/27/2018 8:17 PM Nathanael Pavon MD - 09/27/2018 8:13 PM Annie Fu RN - 09/27/2018 7:48 PM EDT ED Notes (unrecognized secti on and content) Adjusted PT in bed Physician at bedside. Updated PT on medical plan. Associated Order(s): ECG 12 Lead ED PROVIDER NOTE [facility] EM[facility] NAME: Fernando Helton AGE: 48 y.o. : 1970 VISIT DATE: 09/27/2018 CSN: [id number] PCP: Moises Patel MD Chief Complaint Patient [...] file Gets together: Not on file Attends hoahaoism service: Not on file Active member of [...] ms QTC Calculation (Bezet) 425 ms P [place] 62 degrees R [place] 0 degrees T [place] 72 degrees POC Basic Metabolic Panel Result [...] Medicine Why: If symptoms worsen [address] [facility] [id number] Contact information for after-discharge care Follow-up information [...] SIMILAR TO WHEN HE HAD HIS PRIOR [place]. PT LOCATES IT IN THE MIDDLE OF HIS CHEST AND RADIATES TO HIS BACK AND JAW. PT STATES HE IS SOB, SUFFERS COPD BUT NOT O2 DEPENDANT. PT IS ABLE TO SPEAK IN COMPLETE SENTENCES WITHOUT DIFFICULTY. PT DOES HAVE SOME AUDIBLE WHEEZING. PT IS WARM AND DRY ED PROVIDER NOTE [facility] EMERGENC[facility] DEPART[facility] NAME: Fernando Helton AGE: 48 y.o. : 1970 VISIT DATE: 01/17/2019 CSN: [id number] PCP: Moises Patel MD Chief Complaint Patient [...] leg COPD (chronic obstructive pulmonary disease) ([facility]) Fatigue GERD (gastroesophageal reflux disease) Headache HLD (hyperlipidemia) HTN (hypertension) Metabolic syndrome Mood disorder ([facility]) Obstructive sleep apnea Pneumomediastinum ([facility]) 01/2007 Rotator cuff tear, right 1997 s/p repair SLAP tear of shoulder 2011 left - s/p surgery to place [address] elevation myocardial infarction (STEMI) of anterolateral wall ([facility]) 05/09/12 Past Surgical History: Procedure Laterality Date [...] file Gets together: Not on file Attends hoahaoism service: Not on file Active member of [...] ms QTC Calculation (Bezet) 425 ms P [place] 67 degrees R [place] 2 degrees T [place] 65 degrees CBC Auto Differential Result Value [...] cardiopulmonary process. ST/ges Workstation ID: [id number] Procedures [facility] Patient is a 48-year-old male with multiple [...] rhythm rate of 73 beats per minutes TN interval 164 ms QRS duration 86 ms [...] MESSAGE FOR HER TO CALL BACK. 22:53 [facility] ED Physician Note: NAME: Fernando Helton 48 y.o. CSN: [id number] PCP: Moises Patel MD History: Chief Complaint: Shortness of Breath HPI: The history was obtained from the patient. He is a 48 y.o. male who presents with a chief complaint of Shortness of Breath. Patient reports that he underwent coronary artery bypass grafting over 4 weeks ago here at [facility]. Patient reports that around 1 PM [...] myocardial infarction (STEMI) of anterolateral wall ([facility]) 05/09/2012 anterolateral STEMI involving left anterior descending coronary artery ([facility]) 09/25/2014 anterior Superficial thrombophlebitis of right upper [...] Heart Cath; Surgeon: Carlo Mercedes MD; Location: [facility]; Service: Cardiovascular IABP placement 05/09/[address] [...] file Gets together: Not on file Attends hoahaoism service: Not on file Active member of [...] % 02/25/19 2115 134/84 83 96 % 02/25/19 2110 134/84 83 18 96 % 02/25/19 2100 [...] Procedure Abnormality Status --------- ------ CBC Auto Differential[[id number]] Abnormal Final result Please view results for [...] No diagnosis found. Disposition: Fausto Alejandro M.D. [facility] Emergency Department Fausto Alejandro MD [...] documented in this encounter ED PROVIDER NOTE [facility] NAME: Fernando Helton AGE: 49 y.o. : 1970 VISIT DATE: 10/15/2019 CSN: [id number] PCP: Moises Patel MD Chief Complaint Patient [...] Leukocytosis 11/2016 chronic; evaluation by Dr. Bev Exten Metabolic syndrome Mood disorder ([facility]) Nasal fracture Obstructive sleep apnea noncompliant with CPAP Orthostatic dizziness with intermittent syncope Pericarditis 02/25/07; 09/23/17 Pneumomediastinum ([facility]) 01/12/2007 secondary to severe coughing spell & ruptured alveoli Rotator cuff tear, right 1997 s/p repair SLAP tear of shoulder 2011 left - s/p surgery to place [address] elevation myocardial infarction (STEMI) of anterolateral wall ([facility]) 05/09/2012 anterolateral STEMI involving left anterior descending coronary artery ([facility]) 09/25/2014 anterior Superficial thrombophlebitis of right upper [...] Heart Cath; Surgeon: Carlo Mercedes MD; Location: [facility]; Service: Cardiovascular IABP placement 05/09/[address] [...] file Gets together: Not on file Attends hoahaoism service: Not on file Active member of [...] Motor: No weakness or pronator drift. Coordination: Rwiojk-Yedn-Bkwndy Test normal. Psychiatric: Attention and Perception: Attention [...] ms QTC Calculation (Bezet) 461 ms P [place] 61 degrees R [place] -4 degrees T [place] 80 degrees POC Glucose Result Value Ref [...] Order(s): ECG 12- Lead ED PROVIDER NOTE [facility] NAME: Fernando Helton AGE: 48 y.o. : 1970 VISIT DATE: 01/04/2019 CSN: [id number] PCP: Moises Patel MD Chief Complaint Patient presents with Shortness of Breath x2 months CC: Waxing and waning shortness of breath x2 months HPI: Patient with a past medical history of COPD; presented to the ER with waxing and waning shortness of breath going on for 2 months; no significant expectoration; shortness of breath gets worse after ambulation; patient also history of [place] in the past requiring stent placement 2012 and 2014; patient follows up with the massage coordinator; recently had echocardiogram; that as per him shows ejection fraction around 46%; recently had a cardiac MRI; massage coordinator thinks that he does not have CHF; [...] (coronary artery disease) CAD s/p [facility] with 1 stent in left main 07/2012, replaced 09/2014 Chest pain Circulation problem right leg COPD (chronic obstructive pulmonary disease) ([facility]) Fatigue GERD (gastroesophageal reflux disease) Headache HLD (hyperlipidemia) HTN (hypertension) Metabolic syndrome Mood disorder ([facility]) Obstructive sleep apnea Pneumomediastinum ([facility]) 01/2007 Rotator cuff tear, right 1997 s/p repair SLAP tear of shoulder 2011 left - s/p surgery to place [address] elevation myocardial infarction (STEMI) of anterolateral wall ([facility]) 05/09/12 Past Surgical History: Procedure Laterality Date [...] file Gets together: Not on file Attends hoahaoism service: Not on file Active member of [...] has not been specified. Brian Cordoba MD 01/04/191948 Presents to ED c/o shortness of breath x 2 months. states, he gets this every year . documented in this encounter Special isolation precautions are in place with signage outside this patient's room. This daycare worker performs hand hygiene and enters the patient [...] Wu on virtual screen ED PROVIDER NOTE [facility] NAME: Fernando Helton AGE: 49 y.o. 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 Bev Tolentino Metabolic syndrome Mood disorder ([facility]) Nasal fracture Obstructive sleep apnea noncompliant with CPAP Orthostatic dizziness with intermittent syncope Pericarditis 02/25/07; 09/23/17 Pneumomediastinum ([facility]) 01/12/2007 secondary to severe coughing spell & ruptured alveoli Rotator cuff tear, right 1998 s/p repair SLAP tear of shoulder 2011 left - s/p surgery to place [address] elevation myocardial infarction (STEMI) of anterolateral wall ([facility]) 05/09/2012 anterolateral STEMI involving left anterior descending coronary artery ([facility]) 09/25/2014 anterior Superficial thrombophlebitis of right upper extremity 12/26/2006 Past Surgical History: Procedure Laterality Date APPENDECTOMY 1998 BONE MARROW BIOPSY W/ ASPIRATION Left 11/27/2016 L posterior iliac crest; Dr. Bev Tolentino CABG OFF PUMP N/A 01/24/2019 Procedure: Coronary Artery Bypass graft x1 with Left Internal Mammary Artery graft, OFF PUMP; Surgeon: Neo Mcneil MD; Location: [facility]; Service: Cardiothoracic CARDIAC CATHETERIZATION 09/24/2014 Segment [...] Heart Cath; Surgeon: Carlo Mercedes MD; Location: [facility]; Service: Cardiovascular IABP placement 05/09/[address] [...] file Gets together: Not on file Attends hoahaoism service: Not on file Active member of [...] normal sinus rhythm rate of 67 bpm TN interval 172 ms QRS duration 86 ms [...] Gilmer Zelaya MD - 02/03/2019 11:57 AM Alex Walton, PT - 01/28/2019 1:33 PM Meghann Patton RN - 01/28/2019 11:20 AM Becca Ellis, OTR/L - 01/28/2019 10:06 AM EST Consult Notes (unrecognized section and content) Associated Order(s): IP CONSULT TO INTERVENTIONAL RADIOLOGY IR CONSULT NOTE Patient Name: Fernando Helton Admit Date: [id number] [id number] 1970 Physicians: Moises Patel MD (Family); [...] History: Diagnosis Date Acute respiratory failure ([facility]) 09/2014 requring mechanical ventilation Anxiety Bilateral lower extremity edema R > L CAD (coronary artery disease) CAD s/p C with 1 stent in left main 07/2012, replaced 09/2014 Cardiac arrest with ventricular fibrillation ([facility]) 09/25/2014 CHF (congestive heart failure), NYHA class I, chronic, diastolic ([facility]) Chronic sinusitis Claudication of right lower extremity ([facility]) Cluster headache COPD (chronic obstructive pulmonary disease) ([facility]) 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 Bev Tolentino Metabolic syndrome Mood disorder ([facility]) Nasal fracture Obstructive sleep apnea noncompliant with CPAP Orthostatic dizziness with intermittent syncope Pericarditis 02/25/07; 09/23/17 Pneumomediastinum ([facility]) 01/12/2007 secondary to severe coughing spell & ruptured alveoli Rotator cuff tear, right 1997 s/p repair SLAP tear of shoulder 2011 left - s/p surgery to place [address] elevation myocardial infarction (STEMI) of anterolateral wall ([facility]) 05/09/2012 anterolateral STEMI involving left anterior descending coronary artery ([facility]) 09/25/2014 anterior Superficial thrombophlebitis of right upper extremity 12/26/2006 Past Surgical History: Procedure Laterality Date APPENDECTOMY 1998 BONE MARROW BIOPSY W/ ASPIRATION Left 11/27/2016 L posterior iliac crest; Dr. Bev Tolentino CABG OFF PUMP N/A 01/24/2019 Procedure: Coronary Artery Bypass graft x1 with Left Internal Mammary Artery graft, OFF PUMP; Surgeon: Neo Mcneil MD; Location: [facility]; Service: Cardiothoracic CARDIAC CATHETERIZATION 09/24/2014 Segment [...] Heart Cath; Surgeon: Carlo Mercedes MD; Location: [facility]; Service: Cardiovascular IABP placement 05/09/[address] [...] file Gets together: Not on file Attends hoahaoism service: Not on file Active member of [...] patient's participation in this plan of care: [place], CABG. 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 Past Medical History: Diagnosis Date Acute respiratory failure (HCC) 09/2014 requring mechanical ventilation Anxiety Bilateral lower extremity edema R > L CAD (coronary artery disease) CAD s/p [facility] with 1 stent in left main 07/2012, replaced 09/2014 Cardiac arrest with ventricular fibrillation ([facility]) 09/25/2014 CHF (congestive heart failure), NYHA class I, chronic, diastolic ([facility]) Chronic sinusitis Claudication of right lower extremity ([facility]) Cluster headache COPD (chronic obstructive pulmonary disease) (HCC) 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 Bev Tolentino Metabolic syndrome Mood disorder ([facility]) Nasal fracture Obstructive sleep apnea noncompliant with CPAP Orthostatic dizziness with intermittent syncope Pericarditis 02/25/07; 09/23/17 Pneumomediastinum ([facility]) 01/12/2007 secondary to severe coughing spell & ruptured alveoli Rotator cuff tear, right 1998 s/p repair SLAP tear of shoulder 2011 left - s/p surgery to place [address] elevation myocardial infarction (STEMI) of anterolateral wall ([facility]) 05/09/2012 anterolateral STEMI involving left anterior descending coronary artery ([facility]) 09/25/2014 anterior Superficial thrombophlebitis of right upper [...] Heart Cath; Surgeon: Carlo Mercedes MD; Location: [facility]; Service: Cardiovascular IABP placement 05/09/[address] [...] of Care. Associated Order(s): IP CONSULT TO AMBULETTE DRIVER Met with patient for Diabetes self management [...] to record and when to contact Dr. Molina, normal blood sugar levels, target levels for [...] a barrier and family/caregiver support is a adult specialist for return to prior level of function. The patient's education level is a adult specialist and awareness of own capacity and performance is a adult specialist to return to prior level of function. 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 Past Medical History: Diagnosis Date Acute respiratory failure (HCC) 09/2014 requring mechanical ventilation Anxiety Bilateral lower extremity edema R > L CAD (coronary artery disease) CAD s/p [facility] with 1 stent in left main 07/2012, replaced 09/2014 Cardiac arrest with ventricular fibrillation ([facility]) 09/25/2014 CHF (congestive heart failure), NYHA class I, chronic, diastolic ([facility]) Chronic sinusitis Claudication of right lower extremity ([facility]) Cluster headache COPD (chronic obstructive pulmonary disease) ([facility]) 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 Bev Tolentino Metabolic syndrome Mood disorder ([facility]) Nasal fracture Obstructive sleep apnea noncompliant with CPAP Orthostatic dizziness with intermittent syncope Pericarditis 02/25/07; 09/23/17 Pneumomediastinum ([facility]) 01/12/2007 secondary to severe coughing spell & ruptured alveoli Rotator cuff tear, right 1998 s/p repair SLAP tear of shoulder 2011 left - s/p surgery to place [address] elevation myocardial infarction (STEMI) of anterolateral wall ([facility]) 05/09/2012 anterolateral STEMI involving left anterior descending coronary artery ([facility]) 09/25/2014 anterior Superficial thrombophlebitis of right upper [...] Heart Cath; Surgeon: Carlo Mercedes MD; Location: [facility]; Service: Cardiovascular IABP placement 05/09/[address] [...] Fernando Helton Admit Date: [id number] MR #: [id number] : 1970 Physicians: Moises Patel MD (Family); No ref. provider found (referring) Assessment and Plan: PAD (peripheral artery disease) ([facility]) Assessment & Plan Vascular was consulted regarding [...] Bev Tolentino Metabolic syndrome Mood disorder ([facility]) Nasal fracture Obstructive sleep apnea noncompliant with CPAP Orthostatic dizziness with intermittent syncope Pericarditis 02/25/07; 09/23/17 Pneumomediastinum ([facility]) 01/12/2007 secondary to severe coughing spell & ruptured alveoli Rotator cuff tear, right 1997 s/p repair SLAP tear of shoulder 2011 left - s/p surgery to place [address] elevation myocardial infarction (STEMI) of anterolateral wall ([facility]) 05/09/2012 anterolateral STEMI involving left anterior descending coronary artery ([facility]) 09/25/2014 anterior Superficial thrombophlebitis of right upper [...] file Gets together: Not on file Attends hoahaoism service: Not on file Active member of [...] Fernando Helton Admit Date: 01/17/2019 MR #: [id number] : 1970 Current location: [facility] Physicians: Moises Patel MD (Family); Kristin [...] (coronary artery disease) CAD s/p [facility] with 1 stent in left main 07/2012, replaced 09/2014 Cardiac arrest with ventricular fibrillation ([facility]) 09/25/2014 CHF (congestive heart failure), NYHA class I, chronic, diastolic ([facility]) Chronic sinusitis Claudication of right lower extremity ([facility]) Cluster headache COPD (chronic obstructive pulmonary disease) ([facility]) 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 Bev Tolentino Metabolic syndrome Mood disorder ([facility]) Nasal fracture Obstructive sleep apnea noncompliant with CPAP Orthostatic dizziness with intermittent syncope Pericarditis 02/25/07; 09/23/17 Pneumomediastinum ([facility]) 01/12/2007 secondary to severe coughing spell & ruptured alveoli Rotator cuff tear, right 1997 s/p repair SLAP tear of shoulder 2011 left - s/p surgery to place [address] elevation myocardial infarction (STEMI) of anterolateral wall ([facility]) 05/09/2012 anterolateral STEMI involving left anterior descending coronary artery ([facility]) 09/25/2014 anterior Superficial thrombophlebitis of right upper [...] patient with you. Electronically signed by Denisse Clark APRN-JIM 01/21/1911:54 AM Denisse Clark CNP Associated Order(s): [...] Eliquis for in-stent thrombosis, who presented to [facility] emergency department on 01/17/2019 with worsening [...] Melanoma Brother SOCIAL HISTORY: Patient resides in [place] in a two-story home with approximately 15 [...] file Gets together: Not on file Attends hoahaoism service: Not on file Active member of [...] and intact. LABORATORY DATA: Recent Labs 01/19/19 07501/20/199 01/21/19 0607 NA 140 138 135 K [...] and diaphoresis. On 01/17/2019, patient presented to [facility] and was admitted for further [...] obtain carotid Doppler study with Dr. Emma Atkinson to read, PFTs and ankle brachial indices. Additionally, we will obtain further laboratory studies and urinalysis for culture and sensitivity. We will check S. Aureus nasal swab and prophylactically treat with Bactroban and hibiclens. We will consult Dr. Molina for management and treatment of his newly [...] CONSULT TO CARDIOLOGY Reason for consult-chest pain [place]-patient is a pleasant 48-year-old man with medical history significant for CAD status post PCI to LAD in 2012 for [place] presentation-presented again in 2014 with in-stent restenosis-underwent [...] have been negative, EKG shows old anterolateral [place] with mild ST-T changes, d-dimer is negative [...] (coronary artery disease) CAD s/p [facility] with 1 stent in left main 07/2012, replaced 09/2014 Chest pain Circulation problem right leg COPD (chronic obstructive pulmonary disease) ([facility]) Fatigue GERD (gastroesophageal reflux disease) Headache HLD (hyperlipidemia) HTN (hypertension) Metabolic syndrome Mood disorder ([facility]) Obstructive sleep apnea Pneumomediastinum ([facility]) 01/2007 Rotator cuff tear, right 1997 s/p repair SLAP tear of shoulder 2011 left - s/p surgery to place [address] elevation myocardial infarction (STEMI) of anterolateral wall ([facility]) 05/09/12 Past Surgical History: Procedure Laterality Date [...] file Gets together: Not on file Attends hoahaoism service: Not on file Active member of [...] 2 mg 2 mg Oral Nightly Meron Roepr MD 2 mg at 01/17/192116 varenicline (CHANTIX) [...] similar to his pain prior to the [place] will plan for a left heart cath [...] Interventional Cardiology Clinic Consult Heart & Vascular [facility] 10/15/2019 Anita Rowland MD [address] [place] [id number] Patient: Fernando Helton Date of : 1970 [...] current medical regiment. Coronary artery disease involving [place] coronary artery of [place] heart without angina pectoris Patient has a [...] 2D echocardiogram this morning reviewed with Dr. Atkinson demonstrates LV ejection fraction of 40% with [...] 2D echocardiogram this morning reviewed with Dr. Atkinson demonstrates LV ejection fraction of 40% with [...] therapy. COPD (chronic obstructive pulmonary disease) ([facility]) Assessment & Plan Patient reports he has discontinued tobacco abuse. Coronary artery disease involving [place] coronary artery of [place] heart without angina pectoris Assessment & Plan [...] Final Result by Interface, Lab Results In [place] (10/16/2019 0822) Echocardiogram complete w contrast Final Result by Emma Atkinson MD (10/16/2019 1149) Echocardiogram limited with contrast Final Result by (01/27/2019 0822) Stress test only, exercise Final Result by Emma Atkinson MD (03/13/2019 1441) Cardiac Catheterization Final Result [...] History: Diagnosis Date Acute respiratory failure ([facility]) 09/2014 requring mechanical ventilation Anxiety Bilateral lower extremity edema R > L CAD (coronary artery disease) CAD s/p [facility] with 1 stent in left main 07/2012, replaced 09/2014 Cardiac arrest with ventricular fibrillation ([facility]) 09/25/2014 CHF (congestive heart failure), NYHA class I, chronic, diastolic ([facility]) Chronic sinusitis Claudication of right lower extremity ([facility]) Cluster headache COPD (chronic obstructive pulmonary disease) ([facility]) 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 Bev Tolentino Metabolic syndrome Mood disorder ([facility]) Nasal fracture Obstructive sleep apnea noncompliant with CPAP Orthostatic dizziness with intermittent syncope Pericarditis 02/25/07; 09/23/17 Pneumomediastinum ([facility]) 01/12/2007 secondary to severe coughing spell & ruptured alveoli Rotator cuff tear, right 1997 s/p repair SLAP tear of shoulder 2011 left - s/p surgery to place [address] elevation myocardial infarction (STEMI) of anterolateral wall ([facility]) 05/09/2012 anterolateral STEMI involving left anterior descending coronary artery ([facility]) 09/25/2014 anterior Superficial thrombophlebitis of right upper [...] Heart Cath; Surgeon: Carlo Mercedes MD; Location[facility]; Service: Cardiovascular IABP placement 05/09/[address] [...] . The patient's home setup is a adult specialist, family / caregiver support is a adult specialist for return to prior level of function. The patient's compliance is a adult specialist, awareness of own capacity and performance is a adult specialist to return to prior level of function. [...] double vision, but none during OT eval. Lhom-f-Hhkuv WNL. ADL/IADL Feeding: Independent Grooming : Independent [...] dizziness.. Prior Level of Function Level of [place]: Independent with ADLs and functional transfers, Independent with homemaking with ambulation Lives With: Spouse Receives Help From: Family ADL Assistance: Independent Homemaking Assistance: Independent Vocational: On disability Comments: Drives. Independent in community. Past Medical History: Diagnosis Date Acute respiratory failure ([facility]) 09/2014 requring mechanical ventilation Anxiety Bilateral lower extremity edema R > L CAD (coronary artery disease) CAD s/p [facility] with 1 stent in left main 07/2012, replaced 09/2014 Cardiac arrest with ventricular fibrillation ([facility]) 09/25/2014 CHF (congestive heart failure), NYHA class I, chronic, diastolic ([facility]) Chronic sinusitis Claudication of right lower extremity ([facility]) Cluster headache COPD (chronic obstructive pulmonary disease) ([facility]) 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 Bev Tolentino Metabolic syndrome Mood disorder ([facility]) Nasal fracture Obstructive sleep apnea noncompliant with CPAP Orthostatic dizziness with intermittent syncope Pericarditis 02/25/07; 09/23/17 Pneumomediastinum ([facility]) 01/12/2007 secondary to severe coughing spell & ruptured alveoli Rotator cuff tear, right 1997 s/p repair SLAP tear of shoulder 2011 left - s/p surgery to place [address] elevation myocardial infarction (STEMI) of anterolateral wall ([facility]) 05/09/2012 anterolateral STEMI involving left anterior descending coronary artery ([facility]) 09/25/2014 anterior Superficial thrombophlebitis of right upper [...] Heart Cath; Surgeon: Carlo Mercedes MD; Location: [facility]; Service: Cardiovascular IABP placement 05/09/[address] [...] level Prior Level of Function Level of [place]: Independent with ADLs and functional transfers, Independent with homemaking with ambulation Lives With: Spouse Patient is at or near prior level of function at this time. Past Medical History: Diagnosis Date Acute respiratory failure ([facility]) 09/2014 requring mechanical ventilation Anxiety Bilateral lower extremity edema R > L CAD (coronary artery disease) CAD s/p [facility] with 1 stent in left main 07/2012, replaced 09/2014 Cardiac arrest with ventricular fibrillation ([facility]) 09/25/2014 CHF (congestive heart failure), NYHA class I, chronic, diastolic ([facility]) Chronic sinusitis Claudication of right lower extremity ([facility]) Cluster headache COPD (chronic obstructive pulmonary disease) ([facility]) 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 Bev Tolentino Metabolic syndrome Mood disorder ([facility]) Nasal fracture Obstructive sleep apnea noncompliant with CPAP Orthostatic dizziness with intermittent syncope Pericarditis 02/25/07; 09/23/17 Pneumomediastinum ([facility]) 01/12/2007 secondary to severe coughing spell & ruptured alveoli Rotator cuff tear, right 1997 s/p repair SLAP tear of shoulder 2011 left - s/p surgery to place [address] elevation myocardial infarction (STEMI) of anterolateral wall ([facility]) 05/09/2012 anterolateral STEMI involving left anterior descending coronary artery ([facility]) 09/25/2014 anterior Superficial thrombophlebitis of right upper extremity 12/26/2006 Past Surgical History: Procedure Laterality Date APPENDECTOMY 1998 BONE MARROW BIOPSY W/ ASPIRATION Left 11/27/2016 L posterior iliac crest; Dr. Bev Tolentino CABG OFF PUMP N/A 01/24/2019 Procedure: Coronary Artery Bypass graft x1 with Left Internal Mammary Artery graft, OFF PUMP; Surgeon: Neo Mcneil MD; Location: [facility]; Service: Cardiothoracic CARDIAC CATHETERIZATION 09/24/2014 Segment [...] Heart Cath; Surgeon: Carlo Mercedes MD; Location: [facility]; Service: Cardiovascular IABP placement 05/09/[address] [...] with the care plan documented by the ADVICE CLERK. Time statement: A total of 70 minutes were spent on this encounter either in the patient's room or on the patient's hospital unit and over half of that time was spent on [id number] counseling and/or coordination of care. TANNER PALMA MSc, . [email or web address] Staff Neurologist & Movement Disorder Specialist [facility] (Adj Asst: Professor, [employer] Dept of Neurology) [id number], [address] Fax: [phone] NEUROLOGY NOTE [facility] [address] second floor [place] [address] Fax: [phone] Service date: 09/23/2019 Admit date: 09/22/2019 Fernando [...] review with Dr. Palma. 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) Past Medical History: Diagnosis Date Acute respiratory failure (HCC) 09/2014 requring mechanical ventilation Anxiety Bilateral lower extremity edema R > L CAD (coronary artery disease) CAD s/p C with 1 stent in left main 07/2012, replaced 09/2014 Cardiac arrest with ventricular fibrillation ([facility]) 09/25/2014 CHF (congestive heart failure), NYHA class I, chronic, diastolic ([facility]) Chronic sinusitis Claudication of right lower extremity ([facility]) Cluster headache COPD (chronic obstructive pulmonary disease) ([facility]) 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 Bev Tolentino Metabolic syndrome Mood disorder ([facility]) Nasal fracture Obstructive sleep apnea noncompliant with CPAP Orthostatic dizziness with intermittent syncope Pericarditis 02/25/07; 09/23/17 Pneumomediastinum ([facility]) 01/12/2007 secondary to severe coughing spell & ruptured alveoli Rotator cuff tear, right 1998 s/p repair SLAP tear of shoulder 2011 left - s/p surgery to place [address] elevation myocardial infarction (STEMI) of anterolateral wall ([facility]) 05/09/2012 anterolateral STEMI involving left anterior descending coronary artery ([facility]) 09/25/2014 anterior Superficial thrombophlebitis of right upper [...] Heart Cath; Surgeon: Carlo Mercedes MD; Location: [facility]; Service: Cardiovascular IABP placement 05/09/[address] [...] Problem(s): COPD (chronic obstructive pulmonary disease) ([facility]) Patient reports he has discontinued tobacco abuse. Associated Problem(s): Coronary artery disease involving [place] coronary artery of [place] heart without angina pectoris Patient has a [...] Completed Call placed to Dr. Martines about [place] line possibly not giving correct information based [...] OF SURGEON: Dr. Neo Bose. MD [place] Manager Pharmaceutical: Kristin Walker PA-C ANESTHESIOLOGIST: Dr. Jef Martines TYPE OF ANESTHESIA: General PRE-OP DIAGNOSIS: Sclerotic heart disease of the [place] coronary arteries In-stent restenosis of the LAD. [...] y.o. year-old male who presented with acute [place] in the anterior wall after in-stent restenosis [...] LAD via proximal and distal control. The onefinestay stabilization device was utilized to immobilize the [...] complexity, Kristin CHOUDHURY, was utilized as my tourist information assistant.' I broke scrub and went to [...] were discussed and spouse was identified as personnel associate. Use of Password was discussed CVICU visiting policies were discussed. Multidisciplinary steam drier tender rounds were reviewed and family members/caregivers were [...] have been negative, EKG showed old anterolateral [place] with mild ST-T changes with d-dimer negative [...] History: Diagnosis Date Acute respiratory failure ([facility]) 09/2014 requring mechanical ventilation Anxiety Bilateral lower extremity edema R > L CAD (coronary artery disease) CAD s/p [facility] with 1 stent in left main 07/2012, replaced 09/2014 Cardiac arrest with ventricular fibrillation ([facility]) 09/25/2014 CHF (congestive heart failure), NYHA class I, chronic, diastolic ([facility]) Chronic sinusitis Claudication ([facility]) Claudication of right lower extremity ([facility]) Cluster headache COPD (chronic obstructive pulmonary disease) ([facility]) 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 Bev Tolentino Metabolic syndrome Mood disorder ([facility]) Nasal fracture Obstructive sleep apnea noncompliant with CPAP Orthostatic dizziness with intermittent syncope Pericarditis 02/25/07; 09/23/17 Pneumomediastinum ([facility]) 01/12/2007 secondary to severe coughing spell & ruptured alveoli Rotator cuff tear, right 1998 s/p repair SLAP tear of shoulder 2011 left - s/p surgery to place [address] elevation myocardial infarction (STEMI) of anterolateral wall ([facility]) 05/09/2012 anterolateral STEMI involving left anterior descending coronary artery ([facility]) 09/25/2014 anterior Superficial thrombophlebitis of right upper [...] Estimated Needs: 1800-2200cal Method for Estimating Needs: [id number],adjbw Total Protein Estimated Needs: 86gms Method for [...] for SPARKS to LAD bypass cath lab nurse here for patient, advised to give Effient and ASA along with other cardiac meds this morning, advised to stop heparin at this time, off unit with phlebotomist lab assistant nurse Problem: Actual or potential [...] and nitro paste. Consulted with Denisse Caruso TEACHER VOCAL to ensure ordering correct heparin order set. [...] the surgery. I communicated with cardiothoracic Physician Elevator Technician Jacob and he recommends on discharging patient outpatient follow-up. In the ED patient is awake alert his vitals are stable pulse ox continues to be 97% room air he is afebrile blood pressure 131/78. Discharged with encouragement to call cardiothoracic surgery tomorrow and was to return to the ED for any worsening symptom and he expressed understanding. documented in this encounter Seen by [place] to Home post discharge and reviewed AVS. [...] 2D echocardiogram this morning reviewed with Dr. Atkinson demonstrates LV ejection fraction of 40% with [...] therapy. Associated Problem(s): Coronary artery disease involving [place] coronary artery of [place] heart without angina pectoris Patient has a [...] otherwise. documented in this encounter Seen by [place] to Home post discharge and reviewed AVS. [...] Fernando Helton Admit Date: [id number] MR #: [id number] : 1970 The H&P has been reviewed and the patient has been examined. I concur with the findings of the H&P. There are no significant changes. It is appropriate to proceed with the planned procedure. Carlo Mercedes MD 01/20/2019 8:24 AM Reason for consult-chest pain [place]-patient is a pleasant 48-year-old man with medical history significant for CAD status post PCI to LAD in 2012 for [place] presentation-presented again in 2014 with in-stent restenosis-underwent [...] have been negative, EKG shows old anterolateral [place] with mild ST-T changes, d-dimer is negative [...] leg COPD (chronic obstructive pulmonary disease) ([facility]) Fatigue GERD (gastroesophageal reflux disease) Headache HLD (hyperlipidemia) HTN (hypertension) Metabolic syndrome Mood disorder ([facility]) Obstructive sleep apnea Pneumomediastinum ([facility]) 01/2007 Rotator cuff tear, right 1997 s/p repair SLAP tear of shoulder 2011 left - s/p surgery to place [address] elevation myocardial infarction (STEMI) of anterolateral wall ([facility]) 05/09/12 Past Surgical History: Procedure Laterality Date [...] file Gets together: Not on file Attends hoahaoism service: Not on file Active member of [...] D5W infusion 0-70 Units/kg/hr (Order-Specific) Intravenous Continuous Puran Karra, MD 10.4 mL/hr at 01/18/19 0700 9 [...] similar to his pain prior to the [place] will plan for a left heart cath on 01/20/2019 - Continue heparin as per ACS protocol with a target APTT of 60 to 80 seconds - Okay to use Nitropaste - Continue aspirin, Effient, statin - Continue Coreg, enalapril and Lasix Electronically Signed by: Carlo Mercedes M.D 01/18/19 8:19 AM [facility] Medicine Inpatient H&P 01/17/2019 Meron Roper MD [facility] Patient: Fernando Helton Date of : [...] (coronary artery disease) CAD s/p [facility] with 1 stent in left main 07/2012, replaced 09/2014 Chest pain Circulation problem right leg COPD (chronic obstructive pulmonary disease) ([facility]) Fatigue GERD (gastroesophageal reflux disease) Headache HLD (hyperlipidemia) HTN (hypertension) Metabolic syndrome Mood disorder ([facility]) Obstructive sleep apnea Pneumomediastinum ([facility]) 01/2007 Rotator cuff tear, right 1997 s/p repair SLAP tear of shoulder 2011 left - s/p surgery to place [address] elevation myocardial infarction (STEMI) of anterolateral wall ([facility]) 05/09/12 Past Surgical History: Procedure Laterality Date [...] Reviewed 7:22 PM documented in this encounter [facility] Medicine Inpatient H&P 10/16/2019 Nallely Goodwin CNP [facility] Patient: Fernando Helton Date of : 1970 (49 y.o.) PCP: Moises Patel MD ASSESSMENT/PLAN: Fernando Helton 49 y.o. male with history of HTN, HLD, CAD sp 1v CABG, COPD, DM Type II, ISAC non compliant CPAP, cardiac arrest VFib in 2014, chronic diastolic heart failure, GERD. Active Problems: Near syncope Coronary artery disease involving [place] coronary artery of [place] heart without angina pectoris COPD (chronic obstructive pulmonary disease) ([facility]) PLAN: Admit to med surg cardiac monitoring [...] History: Diagnosis Date Acute respiratory failure ([facility]) 09/2014 requring mechanical ventilation Anxiety Bilateral lower extremity edema R > L CAD (coronary artery disease) CAD s/p [facility] with 1 stent in left main 07/2012, replaced 09/2014 Cardiac arrest with ventricular fibrillation ([facility]) 09/25/2014 CHF (congestive heart failure), NYHA class I, chronic, diastolic ([facility]) Chronic sinusitis Claudication of right lower extremity ([facility]) Cluster headache COPD (chronic obstructive pulmonary disease) ([facility]) 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 Bev Tolentino Metabolic syndrome Mood disorder ([facility]) Nasal fracture Obstructive sleep apnea noncompliant with CPAP Orthostatic dizziness with intermittent syncope Pericarditis 02/25/07; 09/23/17 Pneumomediastinum ([facility]) 01/12/2007 secondary to severe coughing spell & ruptured alveoli Rotator cuff tear, right 1998 s/p repair SLAP tear of shoulder 2011 left - s/p surgery to place [address] elevation myocardial infarction (STEMI) of anterolateral wall ([facility]) 05/09/2012 anterolateral STEMI involving left anterior descending coronary artery ([facility]) 09/25/2014 anterior Superficial thrombophlebitis of right upper extremity 12/26/2006 Past Surgical History: Procedure Laterality Date APPENDECTOMY 1998 BONE MARROW BIOPSY W/ ASPIRATION Left 11/27/2016 L posterior iliac crest; Dr. Bev Tolentino CABG OFF PUMP N/A 01/24/2019 Procedure: Coronary Artery Bypass graft x1 with Left Internal Mammary Artery graft, OFF PUMP; Surgeon: Neo Mcneil MD; Location: [facility]; Service: Cardiothoracic CARDIAC CATHETERIZATION 09/24/2014 Segment [...] Heart Cath; Surgeon: Carlo Mercedes MD; [facility]; Service: Cardiovascular IABP placement 05/09/2012 [address] [...] by Dr. Gaitan UPPER GASTROINTESTINAL ENDOSCOPY 2015 Allergies: Imdur [isosorbide mononitrate] Home Medications: Outpatient [...] ms QTC Calculation (Bezet) 461 ms P [place] 61 degrees R [place] -4 degrees T [place] 80 degrees Alcohol, Medical Collection Time: 10/15/19 [...] 1.0 0.8 - 1.1 Troponin Collection Time: 10/15/19 9:59 PM Result Value Ref Range Troponin [...] intracranial CTA. 3. No enhancing intracranial process. [employer] Workstation ID: [id number] Ct Head Or Brain [...] 2. No acute cardiopulmonary process otherwise suspected. S/eva Workstation ID: [id number] Interpretation of Testing: I personally reviewed the EKG and Chest X-ray and agree with the interpretation(s). Associated attestation - Roby Martinez MD - 10/16/2019 6:42 AM EDT Patient seen and managed independently by ADVICE CLERK. I did not participate in the care of this patient, but was available for immediate consultation if requested by the ADVICE CLERK. documented in this encounter [facility] Medicine Inpatient H&P 09/22/2019 Good Macias MD [facility] Patient: Fernando Helton Date of : 1970 (49 y.o.) PCP: Moises Patel MD Assessment Fernando Helton 49 y.o. male with history of hypertension dyslipidemia diabetes coronary artery disease status post CABG presenting with slurred speech altered mental status which has resolved at arrival to ED Principal Problem: TIA (transient ischemic attack) Active Problems: Essential hypertension Mixed hyperlipidemia Coronary artery disease involving [place] coronary artery of [place] heart without angina pectoris GERD (gastroesophageal reflux disease) PAD (peripheral artery disease) ([facility]) Plan: Admit for observation Continue on telemetry [...] History: Diagnosis Date Acute respiratory failure ([facility]) 09/2014 requring mechanical ventilation Anxiety Bilateral lower extremity edema R > L CAD (coronary artery disease) CAD s/p [facility] with 1 stent in left main 07/2012, replaced 09/2014 Cardiac arrest with ventricular fibrillation ([facility]) 09/25/2014 CHF (congestive heart failure), NYHA class I, chronic, diastolic ([facility]) Chronic sinusitis Claudication of right lower extremity ([facility]) Cluster headache COPD (chronic obstructive pulmonary disease) ([facility]) 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 Bev Tolentino Metabolic syndrome Mood disorder ([facility]) Nasal fracture Obstructive sleep apnea noncompliant with CPAP Orthostatic dizziness with intermittent syncope Pericarditis 02/25/07; 09/23/17 Pneumomediastinum ([facility]) 01/12/2007 secondary to severe coughing spell & ruptured alveoli Rotator cuff tear, right 1997 s/p repair SLAP tear of shoulder 2011 left - s/p surgery to place [address] elevation myocardial infarction (STEMI) of anterolateral wall ([facility]) 05/09/2012 anterolateral STEMI involving left anterior descending coronary artery ([facility]) 09/25/2014 anterior Superficial thrombophlebitis of right upper [...] Heart Cath; Surgeon: Carlo Mercedes MD; Location[facility]; Service: Cardiovascular IABP placement 05/09/[address] [...] stat portable chest x-ray. SWAN LINE REMOVAL [place] catheter was removed at this time with patient lying flat. A single lumen infusion catheter was then sterilely placed right IJ cordis. Patient tolerated this very well. There were no immediate complications. documented in this encounter Care Teams (unrecognized sec tion and content) Chief Librarian Circulation Department Relationship Specialty Start Date End Date Moises Patel MD [address] [place] [address] PCP - General Family Medicine 09/20/17 Maykel Weathers II, MD [address] [place] [address] Consulting Physician Internal Medicine 05/17/15 Maximiliano Chiang MD [address] [address] Consulting Physician General Surgery 07/14/19 Rubi White, ADVICE CLERK [address] [place] [address] Nurse Practitioner Nurse Practitioner 07/14/19 Devendra Freitas III, DO [address] [facility] [address] Consulting Physician Vascular Surgery 07/14/19 Chief Librarian Circulation Department Relationship Specialty Start Date End Date Moises Patel MD PCP - General Family Medicine 03/17/13 Chief Librarian Circulation Department Relationship Specialty Start Date End Date Moises Patel MD [address] [place] [address] PCP - General Family Medicine 09/20/17 Maykel Weathers II, MD [address] [place] [address] Consulting Physician Internal Medicine 05/17/15 Maximiliano Chiang MD [address] [address] Consulting Physician General Surgery 07/14/19 Rubi White, ADVICE CLERK [address] [place] [address] Nurse Practitioner Nurse Practitioner 07/14/19 Devendra Freitas III, DO [address] [facility] [place] [address] Consulting Physician Vascular Surgery 07/14/19 Chief Librarian Circulation Department Relationship Specialty Start Date End Date Moises Patel MD [address] [place] [address] PCP - General Family Medicine 09/20/17 Maykel Weathers II, MD [address] [place] [address] Consulting Physician Internal Medicine 05/17/15 Maximiliano Chiang MD [address] [place] [address] Consulting Physician General Surgery 07/14/19 Rubi White, ADVICE CLERK [address] [facility] [place] [address] Nurse Practitioner Nurse Practitioner 07/14/19 Devendra Freitas III, [address] [facility] [address] Consulting Physician Vascular Surgery 07/14/19 Chief Librarian Circulation Department Relationship Specialty Start Date End Date Moises Patel MD PCP - General Family Medicine 03/17/13 Chief Librarian Circulation Department Relationship Specialty Start Date End Date Moises Patel MD [address] [place] [address] PCP - General Family Medicine 09/20/17 Maykel Weathers II, MD [address] [place] [address] Consulting Physician Internal Medicine 05/17/15 Maximiliano Chiang MD [address] [place] [address] Consulting Physician General Surgery 07/14/19 Rubi White, ADVICE CLERK [address] [facility] [place] [address] Nurse Practitioner Nurse Practitioner 07/14/19 Devendra Freitas III, DO [address] [facility] [place] [address] Consulting Physician Vascular Surgery 07/14/19 Chief Librarian Circulation Department Relationship Specialty Start Date End Date Moises Patel MD [address] [place] [address] PCP - General Family Medicine 09/20/17 Maykel Weathers II, MD [address] [place] [address] Consulting Physician Internal Medicine 05/17/15 Maximiliano Chiang MD [address] [place] [address] Consulting Physician General Surgery 07/14/19 Rubi White CNP [address] [facility] [place] [address] Nurse Practitioner Nurse Practitioner 07/14/19 Devendra Freitas III, DO [address] [place] [address] Consulting Physician Vascular Surgery 07/14/19 Chief Librarian Circulation Department Relationship Specialty Start Date End Date Moises Patel MD [address] [place] [address] PCP - General Family Medicine 09/20/17 Maykel Weathers II, MD [address] [place] [address] Consulting Physician Internal Medicine 05/17/15 Maximiliano Chiang MD [address] [place] [address] Consulting Physician General Surgery 07/14/19 Rubi White ADVICE CLERK [address] [facility] [address] Nurse Practitioner Nurse Practitioner 07/14/19 Devendra Freitas III, DO [address] [place] [address] Consulting Physician Vascular Surgery 07/14/19 Chief Librarian Circulation Department Relationship Specialty Start Date End Date Moises Patel MD [address] [place] [address] PCP - General Family Medicine 09/20/17 Maykel Weathers II, MD [address] [place] [address] Consulting Physician Internal Medicine 05/17/15 Carlo Mercedes MD [address] [place] [address] Cardiology 07/14/19 07/12/20 Maximiliano Chiang MD [address] [address] Consulting Physician General Surgery 07/14/19 Rubi White, ADVICE CLERK [address] [place] [address] Nurse Practitioner Nurse Practitioner 07/14/19 Devendra Freitas III, DO [address] [place] [address] Consulting Physician Vascular Surgery 07/14/19 Chief Librarian Circulation Department Relationship Specialty Start Date End Date Moises Patel MD [address] [place] [address] PCP - General Family Medicine 09/20/17 Maykel Weathers II, MD [address] [place] [address] Consulting Physician Internal Medicine 05/17/15 Carlo Mercedes MD [address] [place] [address] Cardiology 07/14/19 07/12/20 Maximiliano Chiang MD [address] [facility] [address] [place] [address] Consulting Physician General Surgery 07/14/19 Rubi White, JIM [address] [facility] [place] [address] Nurse Practitioner Nurse Practitioner 07/14/19 Devendra Freitas III, DO [address] [facility] [place] [address] Consulting Physician Vascular Surgery 07/14/19 Chief Librarian Circulation Department Relationship Specialty Start Date End Date Moises Patel MD [address] [place] [address] PCP - General Family Medicine 09/20/17 Maykel Weathers II, MD [address] [place] [address] Consulting Physician Internal Medicine 05/17/15 Carlo Mercedes MD [address] [place] [address] Cardiology 07/14/19 07/12/20 Maximiliano Chiang MD [address] [facility] [address] [place] [address] Consulting Physician General Surgery 07/14/19 Rubi White, JIM [address] [facility] [place] [address] Nurse Practitioner Nurse Practitioner 07/14/19 Devendra Freitas III, DO [address] [place] [address] Consulting Physician Vascular Surgery 07/14/19 Chief Librarian Circulation Department Relationship Specialty Start Date End Date Moises Patel MD [address] [place] [address] PCP - General Family Medicine 12/28/14 09/19/17 Moises Patel MD [address] [place] [address] PCP - General Family Medicine 09/20/17 Maykel Weathers II, MD [address] [place] [address] Consulting Physician Internal Medicine 05/17/15 Carlo Mercedes MD [address] [place] [address] Cardiology 07/14/19 07/12/20 Maximiliano Chiang MD [address] [place] [address] Consulting Physician General Surgery 07/14/19 Rubi White, JIM [address] [place] [address] Nurse Practitioner Nurse Practitioner 07/14/19 Devendra Freitas III, DO [address] [place] [address] Consulting Physician Vascular Surgery 07/14/19 Chief Librarian Circulation Department Relationship Specialty Start Date End Date Moises Patel MD [address] [place] [address] PCP - General Family Medicine 12/28/14 09/19/17 Moises Patel MD [address] [place] [address] PCP - General Family Medicine 09/20/17 Maykel Weathers II, MD [address] [place] [address] Consulting Physician Internal Medicine 05/17/15 Carlo Mercedes MD [address] [place] [address] Cardiology 07/14/19 07/12/20 Maximiliano Chiang MD [address] [place] [address] Consulting Physician General Surgery 07/14/19 Rubi White CNP [address] [place] [address] Nurse Practitioner Nurse Practitioner 07/14/19 Devendra Freitas III, DO [address] [place] [address] Consulting Physician Vascular Surgery 07/14/19 Chief Librarian Circulation Department Relationship Specialty Start Date End Date Moises Patel MD [address] [place] [address] PCP - General Family Medicine 12/28/14 09/19/17 Moises Patel MD [address] [place] [address] PCP - General Family Medicine 09/20/17 Maykel Weathers II, MD [address] [place] [address] Consulting Physician Internal Medicine 05/17/15 Carlo Mercedes MD [address] [place] [address] Cardiology 07/14/19 07/12/20 Maximiliano Chiang MD [address] [facility] [address] [place] [address] Consulting Physician General Surgery 07/14/19 Rubi White CNP [address] [facility] [place] [address] Nurse Practitioner Nurse Practitioner 07/14/19 Devendra Freitas III, DO [address] [facility] [place] [address] Consulting Physician Vascular Surgery 07/14/19 Chief Librarian Circulation Department Relationship Specialty Start Date End Date Moises Patel MD [address] [place] [address] PCP - General Family Medicine 12/28/14 09/19/17 Moises Patel MD [address] [place] [address] PCP - General Family Medicine 09/20/17 Maykel Weathers II, MD [address] [place] [address] Consulting Physician Internal Medicine 05/17/15 Carlo Mercedes MD [address] [place] [address] Cardiology 07/14/19 07/12/20 Maximiliano Chiang MD [address] [facility] [address] [place] [address] Consulting Physician General Surgery 07/14/19 Rubi White, JIM [address] [place] [address] Nurse Practitioner Nurse Practitioner 07/14/19 Devendra Freitas III, DO [address] [place] [address] Consulting Physician Vascular Surgery 07/14/19 Chief Librarian Circulation Department Relationship Specialty Start Date End Date Moises Patel MD [address] [place] [address] PCP - General Family Medicine 09/20/17 Maykel Weathers II, MD [address] [place] [address] Consulting Physician Internal Medicine 05/17/15 Maximiliano Chiang MD [address] [facility] [address] [place] [address] Consulting Physician General Surgery 07/14/19 Rubi White CNP [address] [place] [address] Nurse Practitioner Nurse Practitioner 07/14/19 Devendra Freitas III, [address] [place] [address] Consulting Physician Vascular Surgery 07/14/19 Team Status: Active Member Role Status Dates NON STAFF Primary Care Provider Active Team Status: Inactive Member Role Status Dates Jasen Campbell DO Emergency Provider Active NON STAFF Primary Care Provider Active Chief Librarian Circulation Department Relationship Specialty Start Date End Date Moises Patel MD [address] [place] [address] PCP - General Family Medicine 09/20/17 Maykel Weathers II, MD [address] [place] [address] Consulting Physician Internal Medicine 05/17/15 Maximiliano Chiang MD [address] [address] Consulting Physician General Surgery 07/14/19 Rubi White CNP [address] [place] [address] Nurse Practitioner Nurse Practitioner 07/14/19 Devendra Freitas III, [address] [place] [address] Consulting Physician Vascular Surgery 07/14/19 Chief Librarian Circulation Department Relationship Specialty Start Date End Date Moises Patel MD [address] [place] [address] PCP - General Family Medicine 09/20/17 Maykel Weathers II, MD [address] [place] [address] Consulting Physician Internal Medicine 05/17/15 Maximiliano Chiang MD [address] [facility] [address] [place] [address] Consulting Physician General Surgery 07/14/19 Rubi White CNP [address] [place] [address] Nurse Practitioner Nurse Practitioner 07/14/19 Devendra Feritas III, DO [address] [place] [address] Consulting Physician Vascular Surgery 07/14/19 Chief Librarian Circulation Department Relationship Specialty Start Date End Date Moises Patel MD [address] [place] [address] PCP - General Family Medicine 09/20/17 Maykel Weathers II, MD [address] [place] [address] Consulting Physician Internal Medicine 05/17/15 Maximiliano Chiang MD [address] [facility] [address] [place] [address] Consulting Physician General Surgery 07/14/19 Rubi White CNP [address] [place] [address] Nurse Practitioner Nurse Practitioner 07/14/19 Devendra Freitas III, [address] [place] [address] Consulting Physician Vascular Surgery 07/14/19 Chief Librarian Circulation Department Relationship Specialty Start Date End Date Moises Patel MD [address] [place] [address] PCP - General Family Medicine 09/20/17 Maykel Weathers II, MD [address] [place] [address] Consulting Physician Internal Medicine 05/17/15 Maximiliano Chiang MD [address] [address] Consulting Physician General Surgery 07/14/19 Rubi White CNP [address] [facility] [place] [address] Nurse Practitioner Nurse Practitioner 07/14/19 Devendra Freitas III, DO [address] [facility] [place] [address] Consulting Physician Vascular Surgery 07/14/19 Chief Librarian Circulation Department Relationship Specialty Start Date End Date Moises Patel MD [address] [place] [address] PCP - General Family Medicine 09/20/17 Maykel Weathers II, MD [address] [place] [address] Consulting Physician Internal Medicine 05/17/15 Maximiliano Chiang MD [address] [place] [address] Consulting Physician General Surgery 07/14/19 Rubi White CNP [address] [place] [address] Nurse Practitioner Nurse Practitioner 07/14/19 Devendra Freitas III, [address] [place] [address] Consulting Physician Vascular Surgery 07/14/19 Chief Librarian Circulation Department Relationship Specialty Start Date End Date Moises Patel MD [address] [place] [address] PCP - General Family Medicine 09/20/17 Maykel Weathers II, MD [address] [place] [address] Consulting Physician Internal Medicine 05/17/15 Maximiliano Chiang MD [address] [place] [address] Consulting Physician General Surgery 07/14/19 Rubi White CNP [address] [place] [address] Nurse Practitioner Nurse Practitioner 07/14/19 Devendra Freitas III, [address] [place] [address] Consulting Physician Vascular Surgery 07/14/19 Chief Librarian Circulation Department Relationship Specialty Start Date End Date Moises Patel MD [address] [place] [address] PCP - General Family Medicine 09/20/17 Maykel Weathers II, MD [address] [place] [address] Consulting Physician Internal Medicine 05/17/15 Maximiliano Chiang MD [address] [address] Consulting Physician General Surgery 07/14/19 Rubi White CNP [address] [facility] [place] [address] Nurse Practitioner Nurse Practitioner 07/14/19 Devendra Freitas III, DO [address] [place] [address] Consulting Physician Vascular Surgery 07/14/19 Goals (unrecognized section and content) Goals may be documented in a n alternate section Scheduled Active and Recently Administ ered Medications (unrecognized section and content) Medication Order 11/01/2023 11/02/2023 11/03/2023 aspirin EC tablet 81 mg 81 mg, Oral, Daily, First dose on Sun11/02/23 at 0900, DO NOT CRUSH OR CHEW. 0857 (Given - Provider: Lisa Guzman, LICHA) 0846 (Given - Provider: Mary Morrison, LICHA) atorvastatin (LIPITOR) tablet 40 mg 40 mg, Oral, Daily, First dose on Sun11/01/23 at 2030 2225 (Given - Provider: Patricia Parks RN - Comment: just received from pharmacy) 0857 (Given - Provider: Lisa Guzman RN) 0846 (Given - Provider: Mary Morrison, LICHA) insulin lispro (AdmeLOG,HumaLOG) injection 0-15 Units(Linked Group 1) 0-15 Units, Subcutaneous, At bedtime, First dose on Sun11/01/23 at 2100, IF initial POC glucose is greater than 250, administer insulin as directed and re-check POC glucose no sooner than 2 hours after administration. THEN notify provider if POC glucose is still greater than 250., For nightly BG greater than 250, give: Half ( ) Corrective Scale, Nightly Prandial Snack Dosing Method: NO Snack Coverage - Corrective Scale ONLY, Nightly Insulin Dose Corrective Scale: FOLLOW DAYTIME Prandial Corrective Scale, Corrective Insulin Regimen (select desired scale to cover BG result): USUAL Sensitivity Scale, (REMINDER: Nightly Insulin Dose Corrective Scale will be automatically calculated to be of the daytime scale), Dose Reduction Threshold (at meals) for POC Blood Glucose less than or equal to: 80, For Downtime Calculator, use: Insulin SC NIGHTtime 2100 (Hold - Provider: Patricia Parks RN - Reason: Order parameters not met) 2100 (Not Given - Provider: Patricia Parks RN - Reason: Order parameters not met) insulin lispro (AdmeLOG,HumaLOG) injection 0-30 Units 0-30 Units, Subcutaneous, 3 times daily before meals, First dose on Sun11/02/23 at 0730, * Dose should be given EITHER: No sooner than 10-15 minutes BEFORE a meal ( Specific Prandial Doses or NO Prandial Dose - Corrective Scale ONLY ) - OR - Immediately AFTER meal completed ( Carb Counting Ratio ), Prandial Insulin Dosing Method: NO Prandial Dose - Corrective Scale ONLY, Corrective Insulin Regimen (select desired scale to cover BG result): USUAL Sensitivity Scale, Dose Reduction Threshold (at meals) for POC Blood Glucose less than or equal to: 80, For Downtime Calculator, use: Insulin SC MEALtime PREprandial 0813 (Given - Provider: Lisa Guzman, LICHA)1130 (Not Given - Provider: Lisa Guzman RN - Reason: Contraindicated)1630 (Not Given - Provider: Lisa Guzman RN - Reason: Contraindicated) 0846 (Given - Provider: Mary Morrison RN)1130 (Due) losartan (COZAAR) tablet 25 mg 25 mg, Oral, Daily, First dose on Huong 9/19/24 at 2030 2225 (Given - Provider: Patricia Parks RN - Comment: just received from pharmacy) 0857 (Given - Provider: Lisa Guzman RN) 0846 (Given - Provider: Mary Morrison RN) metoprolol succinate (TOPROL-XL) 24 hr tablet 25 mg 25 mg, Oral, Daily, First dose on Huong 11/01/23 at 2030, DO NOT CRUSH OR CHEW. 2225 (Given - Provider: Patricia Parks RN - Comment: just received from pharmacy) 0857 (Given - Provider: Lisa Guzman RN) 0846 (Given - Provider: Mary Morrison RN) pantoprazole (PROTONIX) EC tablet 40 mg 40 mg, Oral, Daily, First dose on Huong 11/01/23 at 2030, DO NOT CRUSH OR CHEW. 2224 (Given - Provider: Patricia Parks RN - Comment: just received from pharmacy) 0857 (Given - Provider: Lisa Guzman RN) 0846 (Given - Provider: Mary Morrison RN) Continuous Medication Order 11/01/2023 11/02/2023 11/03/2023 sodium chloride 0.9% (NS) 100 mL/hr, Intravenous, Continuous, Starting on Sun11/02/23 at 1115 1029 (New Bag - Provider: Lisa Guzman RN)1056 (Paused - Provider: Lisa Guzman RN)1057 (Restarted - Provider: Lisa Guzman RN)1522 (Rate/Dose Verify - Provider: Lisa Guzman RN)2143 (New Bag - Provider: Patricia Parks RN) 1149 (Stopped - Provider: Mary Morrison RN) PRN Medication Order 11/01/2023 11/02/2023 11/03/2023 acetaminophen (TYLENOL) tablet 650 mg 650 mg, Oral, Every 4 hours PRN, mild pain, fever 100.4 F or greater, headaches, Starting on Sun11/01/23 at 1825 2224 (Given - Provider: Patricia Parks RN) 2141 (Given - Provider: Patricia Parks RN) albuterol inhaler 2 puff 2 puff, Inhalation, Every 4 hours PRN (RT), shortness of breath, Starting on Sun11/01/23 at 1826, SPACER REQUIRED FOR ADMINISTRATION 1356 (Given - Provider: Lisa Guzman RN) aluminum-magnesium hydroxide-simethicone (MAALOX PLUS) 200-200-20 mg/5 mL suspension 30 mL 30 mL, Oral, Every 4 hours PRN, indigestion, Starting on Sun11/01/23 at 1825 fentaNYL (SUBLIMAZE) injection (CANCELED) As needed, Starting on Sun11/02/23 at 1621, Intra-Procedure 1621 (Given - Provider: Kristin Franco, LICHA) heparin (porcine) injection (CANCELED) As needed, Starting on Sun11/02/23 at 1625, Intra-Procedure 1625 (Given - Provider: Kristin Franco RN) HYDROmorphone (DILAUDID) injection 0.5 mg 0.5 mg, Intravenous, Every 4 hours PRN, moderate to severe pain, Starting on Sun11/02/23 at 0203 0656 (Given - Provider: Patricia Parks, LICHA)1054 (Given - Provider: Lisa Guzman, LICHA)1525 (Given - Provider: Lisa Guzman, LICAH) iopamidoL (ISOVUE-370) 370 mg iodine /mL (76 %) injection (CANCELED) As needed, Starting on Sun11/02/23 at 1637, Intra-Procedure 1637 (Given - Provider: Artur Victor MD) ipratropium-albuteroL (DUO-NEB) 0.5-2.5 mg/3 ml nebulizer solution 3 mL 3 mL, Inhalation, Every 6 hours PRN (RT), shortness of breath, wheezing, Starting on Sun11/01/23 at 1827 lidocaine 1% (PF) (XYLOCAINE-MPF) 10 mg/mL (1 %) injection (CANCELED) As needed, Starting on Sun11/02/23 at 1620, Intra-Procedure 1620 (Given - Provider: Artur Victor MD) midazolam (VERSED) injection (CANCELED) As needed, Starting on Sun11/02/23 at 1621, Intra-Procedure 1621 (Given - Provider: Kristin Franco RN) naloxone (NARCAN) injection 0.1 mg(Linked Group 2) 0.1 mg, Intravenous, As needed, opioid reversal, For respiratory rate less than or equal to 8 per minute., Starting on Sun11/02/23 at 0203, Mix nalOXone (NARCAN) 0.4 mg (1mL) with 9 mL of Normal Saline to total 10 mL. Administer 0.1 mg (2.5mL) IV Push every 2 minutes until respiratory rate is 10 or greater. naloxone (NARCAN) injection 0.4 mg(Linked Group 2) 0.4 mg, Intravenous, As needed, opioid reversal, patient is pulseless, breathless, and unresponsive, Starting on Sun11/02/23 at 0203, Call a code first, then administer naloxone dose undiluted IV Push over 30 seconds. nitroglycerin (TRIDIL) 50 mcg/ml 10 mL syringe (CANCELED) As needed, Starting on Sun11/02/23 at 1623, Intra-Procedure 1623 (Given - Provider: Artur Victor MD) ondansetron (ZOFRAN) injection 4 mg(Linked Group 3) 4 mg, Intravenous, Every 6 hours PRN, nausea, vomiting, Starting on Sun11/01/23 at 1825, Use oral route first, if tolerated. ondansetron (ZOFRAN-ODT) disintegrating tablet 4 mg(Linked Group 3) 4 mg, Oral, Every 6 hours PRN, nausea, vomiting, Starting on Sun11/01/23 at 1825, Use oral route first, if tolerated. Formulation requires tablet remain in sealed package until immediately prior to dose being administered. senna (SENOKOT) tablet 8.6 mg 8.6 mg (1 tablet), Oral, 2 times daily PRN, constipation, Starting on Sun11/01/23 at 1825 verapamiL (ISOPTIN) injection (CANCELED) As needed, Starting on Sun11/02/23 at 1623, Intra-Procedure 1623 (Given - Provider: Artur Victor MD) Linked Groups Order Group 1: insulin lispro (AdmeLOG,HumaLOG) injection 0-15 UnitsJump to med 0-15 Units, Subcutaneous, At bedtime, First dose on Sun11/01/23 at 2100, IF initial POC glucose is greater than 250, administer insulin as directed and re-check POC glucose no sooner than 2 hours after administration. THEN notify provider if POC glucose is still greater than 250., For nightly BG greater than 250, give: Half ( ) Corrective Scale, Nightly Prandial Snack Dosing Method: NO Snack Coverage - Corrective Scale ONLY, Nightly Insulin Dose Corrective Scale: FOLLOW DAYTIME Prandial Corrective Scale, Corrective Insulin Regimen (select desired scale to cover BG result): USUAL Sensitivity Scale, (REMINDER: Nightly Insulin Dose Corrective Scale will be automatically calculated to be of the daytime scale), Dose Reduction Threshold (at meals) for POC Blood Glucose less than or equal to: 80, For Downtime Calculator, use: Insulin SC NIGHTtime And Notify physician (CANCELED) Routine, Until discontinued, Starting on Sun11/01/23 at 1845, Until Specified, Other: IF HS POC Glucose RE-CHECK Greater than 250, If initial HS POC glucose is greater than 250, administer insulin as directed and re-check POC glucose no sooner than 2 hours after administration. IF RE-CHECK POC glucose is still greater than 250, notify provider. Group 2: naloxone (NARCAN) injection 0.1 mgJump to med 0.1 mg, Intravenous, As needed, opioid reversal, For respiratory rate less than or equal to 8 per minute., Starting on Sun11/02/23 at 0203, Mix nalOXone (NARCAN) 0.4 mg (1mL) with 9 mL of Normal Saline to total 10 mL. Administer 0.1 mg (2.5mL) IV Push every 2 minutes until respiratory rate is 10 or greater. And Notify physician (CANCELED) STAT, Until discontinued, Starting on Sun11/02/23 at 0204, Until Specified, Respiratory rate less than: 8, For respiratory rate less than or equal to 8, notify physician and/or appropriate staff for additional orders. And naloxone (NARCAN) injection 0.4 mgJump to med 0.4 mg, Intravenous, As needed, opioid reversal, patient is pulseless, breathless, and unresponsive, Starting on Sun11/02/23 at 0203, Call a code first, then administer naloxone dose undiluted IV Push over 30 seconds. Group 3: ondansetron (ZOFRAN-ODT) disintegrating tablet 4 mgJump to med 4 mg, Oral, Every 6 hours PRN, nausea, vomiting, Starting on Huong 11/01/23 at 1825, Use oral route first, if tolerated. Formulation requires tablet remain in sealed package until immediately prior to dose being administered. Or ondansetron (ZOFRAN) injection 4 mgJump to med 4 mg, Intravenous, Every 6 hours PRN, nausea, vomiting, Starting on Huong 11/01/23 at 1825, Use oral route first, if tolerated. FOR RECORDS PERTAINING TO PATIENTS WHO ARE [...] BE BASED ON THE PRIMARY CLINICAL RECORDS. [employer] provides no warranty or guarantee of the accuracy or completeness of information in this document.
--- NOTE | 2024-02-04 23:51 | ECG_ITS ---
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
[2024-02-05] MEDS: ONDANSETRON PF 4 MG/2 ML VIAL IV (00:14)
[2024-02-05] MEDS: 0.9 % SODIUM CHLORIDE 1,000 ML 1000 ML IV (00:14)
[2024-02-05 00:25] VITALS: O2SAT 95
[2024-02-05 00:28] LABS: Basophils Absolute Auto 0.1 10^3/uL (0.0-0.1); Basophils Percent Auto 0.6 % (0.2-2.0); Eosinophils Absolute Auto 0.4 10^3/uL (0.0-0.7); Eosinophils Percent Auto 3.5 % (0.9-7.0); Hemoglobin 15.3 g/dL (14.0-18.0); Immature Granulocytes Abs Auto 0.07 10^3/uL (0.00-0.03); Immature Granulocytes Pct Auto 0.6 % (0.0-0.5); Lymphocytes Percent Auto 40.1 % (20.5-60.0); Mean Corpuscular HGB Conc 33.3 g/dL (29.9-35.2); Mean Corpuscular Hemoglobin 27.7 pg (25.9-34.0); Mean Corpuscular Volume 83.2 fL (80.0-94.0); Mean Platelet Volume 10.5 fL (9.5-13.5); Monocytes Absolute Auto 0.8 10^3/uL (0.3-0.8); Monocytes Percent Auto 6.7 % (1.7-12.0); Neutrophils Percent Auto 48.5 % (43.0-75.0); Platelet Count 258 10^3/uL (150-450); Red Blood Count 5.53 10^6/uL (4.70-6.10); Red Cell Distribution Width 13.2 % (11.0-15.0); White Blood Count 12.4 10^3/uL (4.0-11.0)
[2024-02-05 00:30] VITALS: PULSE 79; PULSE 82; O2SAT 95
[2024-02-05 00:37] LABS: Anion Gap 11.5; BUN Creatinine Ratio 17.6; Calcium 8.9 mg/dL (8.5-10.1); Carbon Dioxide 26.5 mmol/L (21.0-32.0); Chloride 100 mmol/L (98-107); Estimated GFR (African America >60 (>=60 mL/min/1.73m^2); Estimated GFR (Non-African Ame >60 (>=60 mL/min/1.73m^2); Glucose 344 mg/dL (74-106); Sodium 134 mmol/L (136-145)
[2024-02-05 00:40] VITALS: PULSE 83; O2SAT 95
[2024-02-05 00:41] LABS: Acetone NEGATIVE (NEGATIVE)
--- NOTE | 2024-02-05 00:48 | PC.NURSE ---
PATIENT STATES THAT HE H BEEN HAVING ISSUES WITH HYPERGLYCEMIA FOR A FEW DAYS. SUGARS RUNNING 300/400 AT HOME. PATIENT STATES HES NEVER BEEN DX WITTH DIABETES BUT DOES TAKE 1000MG METFORMIN A DAY. PATIENT FEELS WEAK AND HAS INTERMITTANT BLURRED VISION
[2024-02-05 00:50] VITALS: PULSE 78; O2SAT 96
[2024-02-05 01:01] VITALS: PULSE 84; O2SAT 96
[2024-02-05 01:22] LABS: Bilirubin Urine NEGATIVE (NEGATIVE); Blood Urine NEGATIVE (NEGATIVE); Clarity Urine CLEAR (CLEAR); Color Urine LT. YELLOW (YELLOW); Glucose Urine UA >=1000 mg/dL (NEGATIVE); Ketones Urine NEGATIVE (NEGATIVE); Leukocyte Esterase Urine NEGATIVE (NEGATIVE); Nitrite Urine NEGATIVE (NEGATIVE); Protein Urine NEGATIVE (NEG/TRACE); Urobilinogen Urine 0.2 EU/dL (0.2-1.0); pH Urine 6.5 (5.0-9.0)
[2024-02-05 01:28] LABS: Bacteria Urine NONE SEEN #/HPF (NONE SEEN); Cast Seen? NONE SEEN #/LPF (NONE SEEN); Crystals Seen? None Seen #/HPF (None Seen); Mucus Urine NONE SEEN (NONE SEEN); RBC Urine 0-2 #/HPF (0-2); Squamous Epithelial Cell Urine NONE SEEN #/LPF (NONE/RARE); Urine Culture Indicated NO; WBC Urine NONE SEEN #/HPF (NONE SEEN)
[2024-02-05 01:42] LABS: Glucometer 315 mg/dL (74-106)
== END 2024-02-05 02:08 | disposition home or self-care (01) ==
PROVIDERS: Emergency Provider Emergency Medicine; PCP Family Medicine
DX: R73.9 Hyperglycemia, unspecified (principal); Z95.1 Presence of aortocoronary bypass graft; Z96.611 Presence of right artificial shoulder joint; Z96.612 Presence of left artificial shoulder joint; Z90.49 Acquired absence of other specified parts of digestive tract; F17.200 Nicotine dependence, unspecified, uncomplicated
CPT/HCPCS: 36415; 80048; 81001; 82009; 85025; 93005; 96374; 99284; J2405